=== PATIENT | female | born 1950 | race Caucasian/White ===

== ENCOUNTER 2024-07-04 14:25 | Emergency (ER) | payer OTHER, SELFPAY ==
--- NOTE | ~2024-07-04 | XR_ITS ---
XR chest 2V DATE: 07/04/2024 15:56 INDICATION: Cough TECHNIQUE: 2 views COMPARISON: None FINDINGS: Cardiomegaly. There is prominent consolidating infiltrate of the middle lobe and multiple bilateral lower lobe infi ltrates. No pleural effusion or pulmonary vascular congestion or pneumothorax is detected. No hilar or mediastinal enlargement is noted. Status post posterior surgical fusion of the cervical-thoracic spine IMPRESSION: Middle lobe consolidating infiltrate, probable bilateral lower lobe infiltrates Cardiomegaly Reviewed, dictated and finalized at location A. OL LIBRARIAN
[2024-07-04 14:45] VITALS: BP 143/53; PULSE 93; RESP 20; TEMP 37.6; O2SAT 100
--- NOTE | 2024-07-04 15:03 | ED.URI ---
HPI - URI/Sore Throat General Chief Complaint: Upper Respiratory Infection Stated Complaint: Cough/Shortness of Breath History of Present Illness HPI Narrative: Patient presents with a cough. No shortness of breath no chest pain productive at times. Patient states she had a fever to a eats ago with body aches but declines any testing for COVID or influenza at today's visit. Related Data Home Medications ?Medication ?Instructions ?Recorded ?Confirmed ?Last Taken ?Type alendronate 70 mg tablet mg PO 07/04/24 Unknown History apixaban 5 mg tablet (Eliquis) mg 07/04/24 Unknown History blood sugar diagnostic (Contour 07/04/24 07/04/24 Unknown History Next Test Strips) blood-glucose meter,continuous 07/04/24 07/04/24 Unknown History (DexSimpleview G7 [employer] Specialist) blood-glucose sensor (Dexcom G7 07/04/24 07/04/24 Unknown History Sensor device) clobetasol 0.05 % topical cream topical 07/04/24 Unknown History clonidine HCl 0.1 mg tablet mg 07/04/24 Unknown History finasteride 5 mg tablet mg 07/04/24 Unknown History fluticasone propionate 110 inhalation 07/04/24 Unknown History mcg/actuation HFA aerosol inhaler fluticasone propionate 50 intranasal 07/04/24 Unknown History mcg/actuation nasal spray,suspension furosemide 20 mg tablet mg 07/04/24 Unknown History gabapentin 100 mg capsule mg 07/04/24 Unknown History insulin aspart U-100 100 unit/mL subcut 07/04/24 Unknown History (3 mL) subcutaneous pen insulin glargine-yfgn 100 unit/mL unit subcut 07/04/24 Unknown History (3 mL) subcutaneous pen (Semglee (insulin glargine-yfgn) Pen) losartan 25 mg tablet mg 07/04/24 Unknown History methocarbamol 500 mg tablet mg 07/04/24 Unknown History montelukast 10 mg tablet mg 07/04/24 Unknown History mupirocin 2 % topical ointment topical 07/04/24 Unknown History omeprazole 20 mg capsule,delayed mg 07/04/24 Unknown History release ondansetron 8 mg disintegrating mg 07/04/24 Unknown History tablet pen needle, diabetic 31 gauge x 07/04/24 07/04/24 Unknown History 3/16 (BD Ultra-Fine Mini Pen Needle) simvastatin 40 mg tablet mg 07/04/24 Unknown History triamcinolone acetonide 0.1 % applic topical 07/04/24 Unknown History topical cream Allergies Allergy/AdvReac Type Severity Reaction Status Date / Time No Known Drug Allergies AdvReac Agitated Verified 07/04/24 15:09 Review of Systems Review of Systems: CONSTITUTIONAL: Denies chills, or sweats. Reports fever and generalized body aches EYES: Denies visual changes, redness, or discharge. ENT: Denies otalgia. Reports nasal congestion runny nose and sore throat CARDIOVASCULAR: Denies chest pain, palpitations, or edema. RESPIRATORY: Denies dyspnea. Reports occasional cough GASTROINTESTINAL: Denies abdominal pain, nausea, vomiting, or diarrhea. GENITOURINARY: Denies dysuria or hematuria. SKIN: Denies rash or itching. MUSCULOSKELETAL: Denies back pain, joint pain, or myalgia. Reports generalized body aches NEUROLOGIC: Denies headache, numbness, or weakness. PSYCHIATRIC: Denies anxiety or depression. PMFSH Comments At time of signature, agree with nursing past medical, surgical, social and family history. There is no relevant family history pertinent to the presenting complaint Exam Narrative: The patient is a well-developed, well-nourished in no acute distress. SKIN: Skin is warm and dry without erythema, swelling or exudate. There is good turgor. No tenting. HEAD: Atraumatic. Normocephalic. No temporal or scalp tenderness. EYES: Moist and bright. Sclera and conjunctivae normal. No discharge. PERRLA. Extraocular motions intact. Gross visual acuity intact. EARS: Pinna is normal shape and contour. Clear external auditory canals. TM pearly flores with good cone of light, no erythema or suppuration. Bilateral cerumen noted no gross hearing deficit. NOSE: pink, moist mucosa with good air movement. Clear rhinorrhea without nasal flaring. Septum midline. Mouth: moist mucous membranes. THROAT; mild erythema noted to posterior oropharynx with moderate postnasal drainage. Without exudate or ulceration.. Uvula midline. Normal movement of soft palate. NECK: Supple and nontender with full range of motion without discomfort. No meningeal signs. LUNGS: Equal and bilateral breath sounds without wheezes, rales or rhonchi. CHEST: The chest wall is without retractions or use of accessory muscles. HEART: Has a regular rate and rhythm without murmur, gallops, click or rub. ABDOMEN: Soft, nontender with positive active bowel sounds. No rebound tenderness. EXTREMITIES: Without cyanosis, clubbing or edema. Equal 2+ distal pulses and 2 second capillary refill noted. NEUROLOGIC: alert, active, . The patient moves all extremities with normal muscle strength. Normal muscle tone is noted. Normal coordination is noted. NO focal neurological findings noted. Course Course Level of Care: Express Care Visit Vital Signs Vital signs: Vital Signs Temperature 37.6 C 07/04/24 14:45 Pulse Rate 93 07/04/24 14:45 Respiratory Rate 20 07/04/24 14:45 Blood Pressure 143/53 H 07/04/24 14:45 Pulse Oximetry 100 07/04/24 14:45 Oxygen Delivery Room Air 07/04/24 14:45 Temperature 37.6 C 07/04/24 14:45 Pulse Rate 93 07/04/24 14:45 Respiratory Rate 20 07/04/24 14:45 Blood Pressure 143/53 H 07/04/24 14:45 Pulse Oximetry 100 07/04/24 14:45 Oxygen Delivery Room Air 07/04/24 14:45 Please ADDY schedule a followup visit with your personal physician for further evaluation and treatment. Including recheck and discussion of your blood pressure. If your symptoms persist, change or worsen significantly before you can contact your personal physician then please, without delay, go to the emergency department for further evaluation MDM - URI/Sore Throat Imaging Data Radiologist's impression: middle lobe pneumonia Discharge Plan Discharge Clinical Impression: Bronchitis Patient Disposition: Home, Self-Care Condition: Stable Instructions: Acute Bronchitis (ED), Pneumonia (ED) Additional Instructions: Take medication as prescribed Increase fluids monitor output Follow-up with primary care provider in 3-4 days for re-evaluation If any new or worsening symptoms please go to ER immediately further evaluation treatment Patient Language: Djiboutian Prescriptions: New amoxicillin 875 mg tablet 875 mg PO Q12H 5 Days Qty: 10 0RF benzonatate 100 mg capsule 100 mg PO TID PRN (Reason: cough) 5 Days Qty: 10 0RF albuterol sulfate 90 mcg/actuation HFA aerosol inhaler 2 puff inhalation QID PRN (Reason: shortness of breath or wheezing) Qty: 1 0RF fluticasone propionate 50 mcg/actuation spray,suspension 2 spray NASAL DAILY 14 Days Qty: 9.9 0RF Rx Instructions: administer into each nostril doxycycline monohydrate 100 mg capsule 100 mg PO BID 7 Days Qty: 14 0RF No Action methocarbamol 500 mg tablet clonidine HCl 0.1 mg tablet alendronate 70 mg tablet PO clobetasol 0.05 % cream TOPICAL (DME) Contour Next Test Strips Strip MISCELLANEOUS triamcinolone acetonide 0.1 % cream TOPICAL simvastatin 40 mg tablet ondansetron 8 mg tablet,disintegrating losartan 25 mg tablet omeprazole 20 mg capsule,delayed release(DR/EC) montelukast 10 mg tablet mupirocin 2 % ointment TOPICAL furosemide 20 mg tablet gabapentin 100 mg capsule fluticasone propionate 50 mcg/actuation spray,suspension INTRANASAL finasteride 5 mg tablet fluticasone propionate 110 mcg/actuation HFA aerosol inhaler INHALATION insulin aspart U-100 100 unit/mL (3 mL) insulin pen SUBCUT (DME) pen needle, diabetic [BD Ultra-Fine Mini Pen Needle] 31 gauge x 3/16 needle MISCELLANEOUS (DME) Dexcom G7 Sensor Device MISCELLANEOUS (DME) Dexcom G7 Learning [employer] Specialist Misc MISCELLANEOUS Eliquis 5 mg tablet insulin glargine-yfgn [Semglee(insulin glarg-yfgn)Pen] 100 unit/mL (3 mL) insulin pen SUBCUT Follow-up/Referrals: Harms,Lalito Kay M.D. [Primary Care Provider] -
--- OUTSIDE RECORDS SUMMARY | 2024-07-11 22:30 | XMS_ITS | Patient Health Summary ---
Author Organization [facility] Address [address] [place] [address] Care Team Providers Care Intermediate School Teacher Name Role Phone Unavailable Primary Care Provider Unavailabl e Note from [facility],non-owned Affiliates and Associated Physician Practices is amultiple site organization consisting of ambulatory clinics and hospital sitesin [place], [place], [place] and [place]. This disclosure is being madepursuant to the Care Everywhere program and may not contain all information available regarding this patient. Last updated 18.[facility] Social History Tobacco Use Types Packs/Day Years Used Date Smoking Tobacco: Never Assessed Sex and Gender Information Value Date Recorded Sex Assigned at Not on file Gender Identity Not on file Sexual Orientation Not on file Procedures * GROSS EXAM PATHOLOGY(Performed 09/27/2005) Results * GROSS EXAM PATHOLOGY (09/27/2005 4:20 PM PORT CAPTAIN) Result CASE NUMBER [id number] Comment: ORDERING PHYSICIAN ??LICHA GUZMAN SPECIMEN TYPE ?Knee bone and tissu DATE OF PROCEDURE ?09/27/2005 SPECIMEN LABELED ? Bone and tissue left knee PRE-OP DIAGNOSIS ? Left knee osteoarthritis GROSS DESCRIPTION ? GROSS DESCRIPTION The specimen is received in formalin labeled bone and tissue left knee patient Criss Ly, and consists of approximately 90 grams of yellow- white bone and soft tissue that includes fragments of tibial plateau, femoral condyles and patella. The largest tibial fragment is 3 x 3 x 1 cm. The condyles 5 x 2.5 x 0.8 cm and the patella 3 x 2.5 x 0.8 cm. All of the articular surfaces are yellow-white, nodular and focally eroded. The menisci are 3 x 1 x 0.9 cm. A portion submitted in two cassettes, one decal. Dictated by ? Tito oHoker M.D. MICROSCOPIC DESCRIPTION The sections from the bone show degenerative changes in the articular cartilage and adjacent cortical bone. The trabecular bone is normal. The bone marrow contains adipose tissue. ??Sections from the soft tissue show synovial hyperplasia. Dictated by ?? Tito Hooker M.D. DIAGNOSIS Bone, left knee, total knee replacement ? Degenerative joint disease ? Synovial hyperplasia Dictated by ??Tiot Hooker M.D. Abstract Manager ? LESLEE MCNEILL Released By ?TITO HOOKER MISCELLANEOUS SAMPLES / Unknown 09/27/2005 4:20 PM PORT CAPTAIN 09/27/2005 4:21 PM PORT CAPTAIN Historical Provider LAB - PATHOLOGY/C YTOLOGY ORDERABLES
--- OUTSIDE RECORDS SUMMARY | 2024-07-11 22:30 | XMS_ITS | Encounter Summary ---
Author Organization [facility] Address [address] [place] [address]. [place], [place] [id number] [place] [id number] Care Team Providers Care Licensing Engineer Name Role Phone Lalito England MD Primary Care Provider [phone] Encounter Details Date Type Department Care Team (Latest Contact Info) Description 03/25/2022 Travel Social History Tobacco Use Types Packs/Day Years Used Date Smoking Tobacco: Never Smokeless Tobacco: Never Alcohol Use Standard Drinks/Week Comments Never 0 (1 standard drink = 0.6 oz pur e alcohol) Comments No Sex and Gender Information Value Date Recorded Sex Assigned at Not on file Legal Sex Female 4:23 PM CDT Gender Identity Not on file Sexual Orientation Not on file COVID-19 Exposure Response Date Recorded In the last 10 days, have yo u been in contact with someone who was confirmed or suspected to have Coronavirus/COVID-19? No / Unsure 03/25/2022 10:30 AM CDT documented as of this encounter Functional Status documented as of this encounter Mental Status * Question Answer Entry Date Author Status Because of a physical, mental, or emotional condition, do you have serious difficulty concentrating, remembering, or making decisions? No 03/25/2022 7:00 PM CDT Radha Barajas R N Active documented in this encounter Plan of Treatment Not on file documented as of this encounter Visit Diagnoses Not on filedocumented in this encounter Care Teams Licensing Engineer Relationship Specialty Start Date End Date [place] [id number] PCP - General INTERNAL MEDICINE 02/05/22 documented as of this encounter
--- OUTSIDE RECORDS SUMMARY | 2024-07-11 22:30 | XMS_ITS | Encounter Summary ---
Author Organization [facility] Address [address] [place] [address] Care Team Providers Care Naphthalene Still Operator Name Role Phone Unavailable Primary Care Provider Unavailabl e Encounter Details Date Type Department Care Team (Late st Contact Info) Description 09/27/2005 Orders Only [facility] [address] [place] [address] Provider, MD Sofiya Social History Tobacco Use Types Packs/Day Years Used Date Smoking Tobacco: Never Assessed Sex and Gender Information Value Date Recorded Sex Assigned at Not on file Gender Identity Not on file Sexual Orientation Not on file documented as of this encounter Plan of Treatment Not on file documented as of this encounter Procedures Procedure Name Priority Date/Time Associated Diagnosis Comments GROSS EXAM PATHOLOGY ADDY 09/27/2005 4:20 PM VOLLEYBALL REFEREE documented in this encounter Results * GROSS EXAM PATHOLOGY (09/27/2005 4:20 PM VOLLEYBALL REFEREE) Result CASE NUMBER [id number] Comment: ORDERING [...] cassettes, one decal. Dictated by ? Tito Hooker M.D. MICROSCOPIC DESCRIPTION The sections from the bone show degenerative changes in the articular cartilage and adjacent cortical bone. The trabecular bone is normal. The bone marrow contains adipose tissue. ??Sections from the soft tissue show synovial hyperplasia. Dictated by ?? Tito Hooker M.D. DIAGNOSIS Bone, left knee, total knee replacement ? Degenerative joint disease ? Synovial hyperplasia Dictated by ??Tito Hooker M.D. Petrologist ? LESLEE MCNEILL Released By ?TITO HOOKER MISCELLANEOUS SAMPLES / Unknown 09/27/2005 4:20 PM VOLLEYBALL REFEREE 09/27/2005 4:21 PM VOLLEYBALL REFEREE Historical Provider LAB - PATHOLOGY/C YTOLOGY ORDERABLES documented in this encounter Visit Diagnoses Not on filedocumented in this encounter
--- OUTSIDE RECORDS SUMMARY | 2024-07-11 22:30 | XMS_ITS | Clinical Summary ---
Author Organization [facility] Address [address] [place] [address] Care Team Providers Care Metal Riveting Machine Operator Name Role Phone Unavailable Primary Care Provider Unavailabl e Source Comments [facility],non-owned Affiliates and Associated Physician Practices is amultiple site organization consisting of ambulatory clinics and hospital sitesin [place], [place], [place] and [place]. This disclosure is being madepursuant to the Care Everywhere program and may not contain all information available regarding this patient. Last updated 18.[facility] Social History Tobacco Use Types Packs/Day Years Used Date Smoking Tobacco: Never Assessed Sex and Gender Information Value Date Recorded Sex Assigned at Not on file Gender Identity Not on file Sexual Orientation Not on file Plan of Treatment Health Maintenance Due Date Last Done Comments BONE DENSITY TESTING 1950 COLOGUARD (AGES 45-75) - COL ON CA SCREENING 1949 COLON MONITORING 1949 COLONOSCOPY - COLON CA SCREENING 1949 CT COLONOGRAPHY - COLON CA SCREENING 1950 Colorectal Cancer Screening 1949 FIT - COLON CA SCREENING 1949 FLEX SIG - COLON CA SCREENING 1949 LIPID TESTING 1950 MAMMOGRAM 1949 HEPATITIS C SCREENING 04/19/1967 DTAP/TDAP/TD VACCINES (1 - Tdap) 1968 ZOSTER VACCINE (1 of 2) 1999 PNEUMOCOCCAL VACCINE 65+ (1 of 1 - PCV) 2014 DEPRESSION SCREENING 07/14/2023 COVID-19 VACCINE ( - 2023-2 5 season) 2024 INFLUENZA VACCINE (#1) 2024 Respiratory Syncytial Virus (RSV) Vaccine Pt: or over 60 yrs (1 - 1-dose 75+ series) 2024 HEPATITIS B VACCINE Aged Out No longe r eligible based on patient's age to complete this topic HIB VACCINE Aged Out No longer eligi ble based on patient's age to complete this topic HPV VACCINE Aged Out No longer eligi ble based on patient's age to complete this topic MENINGOCOCCAL VACCINE Aged Out No alissa david eligible based on patient's age to complete this topic
--- OUTSIDE RECORDS SUMMARY | 2024-07-11 22:30 | XMS_ITS | Referral Summary ---
Author Organization [facility] Address [address] [place] [address] Care Team Providers Care President & Ceo [employer] Name Role Phone Unavailable Primary Care Provider Unavailabl e Source Comments [facility],non-owned Affiliates and Associated Physician Practices is amultiple site organization consisting of ambulatory clinics and hospital sitesin [place], [place], [place] and [place]. This disclosure is being madepursuant to the Care Everywhere program and may not contain all information available regarding this patient. Last updated 18.[facility] Social History Tobacco Use Types Packs/Day Years Used Date Smoking Tobacco: Never Assessed Sex and Gender Information Value Date Recorded Sex Assigned at Not on file Gender Identity Not on file Sexual Orientation Not on file Plan of Treatment Not on file
--- OUTSIDE RECORDS SUMMARY | 2024-07-11 22:30 | XMS_ITS | Encounter Summary ---
Author Organization [facility] Address [address] [place] [address]. [place], [place] [id number] [place] [id number] Care Team Providers Care Cable Strander Name Role Phone Lalito England MD Primary Care Provider [phone] Reason for Referral * (Routine) - Canceled Specialty Diagnoses / Procedures Referred By Contac t Referred To Contact Procedures OT eval and treat Robinson Block MD [address] [place] [address] Phone: tel: fax: Referral ID Status Reason Start Date Expiration Date V isits Requested Visits Authorized [id number] Canceled 03/25/2022 03/25/2023 1 1 * (Routine) - Canceled Specialty Diagnoses / Procedures Referred By Contac t Referred To Contact Procedures PT eval and Robinson Garvey MD [address] [address] Phone: tel: fax: Referral ID Status Reason Start Date Expiration Date V isits Requested Visits Authorized [id number] Canceled 03/25/2022 03/25/2023 1 1 Reason for Visit * Auth/Cert Specialty Diagnoses / Procedures Referred By Contac t Referred To Contact Diagnoses LUMBAR STENOSIS WITH CLAUDICATION, BILATERAL FOOT DROP M48.062, M21.371, M43.10 Procedures LUMBAR 4-5 LAMINECTOMY Robinson Block MD [address] [address] Phone: tel: fax: Referral ID Status Reason Start Date Expiration Date Visits Re quested Visits Authorized [id number] 1 1 Encounter Details Date Type Department Care Team (Late st Contact Info) Description 03/25/2022 10:30 AM CDT - 03/26/2022 8:45 PM CDT Hospital Encounter [facility] Med/Surg 5th [address] [place], [place] [id number] Robinson Block MD [address] [address] Discharge Disposition: [facility] Facility Social History Tobacco Use Types Packs/Day Years [...] AM CDT documented as of this encounter Last Filed Vital Signs Vital Sign Reading Time Taken Comments Blood Pressure 137/60 03/26/2022 8:00 PM CDT Pulse 86 03/26/2022 8:00 PM CDT Temperature 37.7 ??C (99.9 ??F) 03/26/2022 8:00 PM CD T Respiratory Rate 19 03/26/2022 8:00 PM CDT Oxygen Saturation 99% 03/26/2022 8:00 PM CDT Inhaled Oxygen Concentration - - Weight 104.3 kg (230 lb) 03/25/2022 7:30 PM CDT Height 167.6 cm (5' 6 ) 03/25/2022 7:30 PM CDT p er patient Body Mass Index 37.12 03/25/2022 7:30 PM CDT documented in this encounter Functional Status * Question Answer Date of Assessment Author Status Do you have serious difficulty walking or climbing stairs? Yes 03/25/2022 7:00 PM CDT Radha Barajas RN Ac tive * Question Answer Date of Assessment Author Status Do you have difficulty dressing or bathing? No 03/25/2022 7:00 PM CDT Radha Barajas R N Active Because of a physical, mental, or emotional condition, do you have difficulty doing errands alone such as visiting a doctor's office or shopping? No 03/25/2022 7:00 PM CDT Radha Barajas RN Act ziyad * RETIRED Are you deaf or do you have serious difficulty hearing Answer Date of Assessment Author Status No 03/25/2022 7:00 PM CDT Activ e * RETIRED Are you blind or do you have serious difficulty seeing, even when wearing glasses? Answer Date of Assessment Author Status No 03/25/2022 7:00 PM CDT Activ e * Do you have serious difficulty walking or climbing stairs? Answer Date of Assessment Author Status Yes 03/25/2022 7:00 PM CDT Radha Barajas RN Active * Do you have difficulty dressing or bathing? Answer Date of Assessment Author Status No 03/25/2022 7:00 PM CDT Radha Barajas RN Active * Because of a physical, mental, or emotional condition, do you have difficulty doing errands alone such as visiting a doctor's office or shopping? Answer Date of Assessment Author Status No 03/25/2022 7:00 PM CDT Radha Barajas RN Active documented as of this encounter Mental Status * Question Answer Entry Date Author Status Because of a physical, mental, or emotional condition, do you have serious difficulty concentrating, remembering, or making decisions? No 03/25/2022 7:00 PM CDT Radha Barajas R N Active * Because of a physical, mental, or emotional condition, do you have serious difficulty concentrating, remembering, or making decisions? Answer Entry Date Author Status No 03/25/2022 7:00 PM CDT Radha Barajas RN Active documented in this encounter Discharge Instructions * Discharge Instructions* Francoise Pak RN - 03/26/2022 2:47 PM CDT Remove dressing tomorrow. Leave on seri strips. Can take shower on . Follow up with Umair weber in two weeks and in person 6 weeks out documented in this encounter Medications at Time of Discharge acetaminophen (TYLENOL) 325 MG tablet Take 650 mg by mouth every 4 (four) hours as needed for Pain. albuterol sulfate HFA 108 (90 Base) MCG/ACT inhaler Inhale 2 puffs into the lungs as needed. alendronate (FOSAMAX) 70 MG tablet Take 1 tablet by mouth once a week. Takes on Friday01/18/2022 bisacodyl (BISACODYL LAXATIVE) [address] 10 mg rectally daily as needed for Constipation. calcium carbonate-vitamin D 600-200 MG-UNIT Tab Take 1 tablet by mouth daily. cloNIDine (CATAPRES) 0.1 MG tablet Take 0.5 tablets by mouth 2 (two) times daily. 12/19/2021 docusate sodium (COLACE) 100 MG capsule Take 100 mg by mouth daily. Give one time a day every 2 days for constipation fluticasone propionate (FLONASE) 50 MCG/ACT nasal spray 2 sprays by Nasal route daily. 01/07/2022 furosemide (LASIX) 20 MG tablet Take 1 tablet by mouth daily. 02/05/2022 gabapentin (NEURONTIN) 100 MG capsule Take 1 capsule by mouth 3 (three) times a day. 02/14/2022 HYDROcodone-aceta minophen (NORCO) 5-325 MG tablet Take 1 tablet by mouth 3 (three) times daily as needed. 12/28/2021 insulin aspart (NOVOLOG FLEXPEN) 100 UNIT/ML injection (PEN) INJECT 32 UNITS UNDER THE SKIN 3 (THREE) TIMES A DAY BEFORE MEALS 09/11/2021 insulin glargine (LANTUS SOLOSTAR) 100 UNIT/ML injection (PEN) 48 Units nightly. 48 units at night 01/04/2022 loperamide (IMODIUM) 2 MG capsule Take 2 mg by mouth 4 (four) times daily as needed for Diarrhea. magnesium citrate 1.745 GM/30ML Solution Take 296 mLs by mouth once. montelukast (SINGULAIR) 10 MG tablet Take 1 tablet by mouth nightly at bedtime. 02/05/2022 naloxone (NARCAN) 4 MG/0.1ML nasal spray 1 spray by Nasal route. 12/28/2021 omeprazole (PRILOSEC) 20 MG capsule Take 20 mg by mouth 2 (two) times a day. ondansetron (ZOFRAN) 4 MG tablet 4 mg every 6 (six) hours as needed for Nausea. 03/24/2022 simvastatin (ZOCOR) 40 MG tablet Take 1 tablet by mouth nightly. 08/23/2021 methocarbamol (ROBAXIN) 750 MG Tab Take 1 tablet (750 mg total) by mouth 3 (three) times daily for 30 days. 90 tablet 03/26/2022 2 documented as of this encounter Progress Notes * Svitlana Laird, OT - 03/26/2022 2:47 PM CDT 03/26/22 1400 Therapy Visit OT Evaluation Completed on 03/26/22 Reason for admission Lumbar stenosis with claudication and b/foot drop. Underwent L4-5 LAMINECTOMY on 03/25/22. Comorbidities Relevant to OT Left LILLY, B/TKA's, previous left L4-5 laminectomy, asthma, HTN, PVD, DVT, HLD, DM, OBESITY, OA, CKD. Ordering Provider Umair Verified Two Patient Identifiers Yes Patient consents to therapy Yes Acute Inpatient OT Time Calculation OT Start Time 1305 OT Stop Time 1334 OT Time Calculation (min) 29 min Precautions Spine Precautions Bending;Leaning;Lifting;Twisting Lifting Precautions Yes Weight Bearing Status As tolerated General Precautions Bed Alarm;Chair Alarm;Fall Risk PPE Used Face mask;Gloves Instructed on Precautions Yes;Verbalizes understanding Skin Integrity Back incision/dressing Other IV Subjective Subjective RM 518: OT orders rec'd EMR reviewed. Pt sitting EOB with PT at arrival and agreeable toOT evaluation. Home Living Type of Home long term facility (Receiving rehab since 01/18/22) Home Layout One level Home Accessibility 0 Steps to enter Bathroom Shower/Tub Walk-in shower Bathroom Toilet Elevated height toilet (ADA height);Grab bars around toilet Bathroom Equipment Grab bars in shower;Tub/shower chair with back Bathroom Accessibility Accessible Home Equipment 4 Wheeled walker;2 Wheeled walker;Straight cane (using WC at [place]) Prior Function Level of [place] Needs assistance with ADLs;Needs assistance with homemaking;Needs assistance with functional transfers;Needs assistance with ambulation Device used at baseline Wheelchair-manual (sit to stand lift at [facility]) Baseline Ambulation Distance/Assistance Non-ambulatory 3 months Fall History Yes Reason for fall leg gave out Most recent fall 01/16/22 How many falls in the past year? 3 Lives With Alone Receives Help From Facility staff (PT at facility for sit>stand with walker) ADL Assistance Needs assistance Homemaking Assistance Needs assistance Pain Pain Yes Pain Score 8 Location back Interventions Re-direction;Re-positioning Activity Tolerance Endurance Tolerates 10 - 20 min activity with rests Endurance Quality Poor Limiting Factors to Endurance Acute deconditioning;Fatigue;Pain;Weakness Vision - Basic Assessment Current Vision No visual deficits Vision - Complex Assessment Additional Comments no issues Cognition Overall Cognitive Status WFL Arousal/Alertness Appropriate responses to stimuli Attention Span Appears intact Memory Appears intact Orientation Level Oriented X4 Following Commands Follows all commands and directions without difficulty Safety Judgment Decreased awareness of need for safety Awareness of Errors Assistance required to identify errors made Deficits Decreased awareness of deficits Problem Solving Assistance required to identify errors made Overall Extremity Assessment Upper Extremity BUE AROM WFL; BUE MMT grossly 4-/5 Hand Function Hand Dominance Right Gross Grasp Functional Sensation Light Touch No apparent deficits ADL Eating/Feeding Assistance Independent Eating/Feeding Deficit Setup Grooming Assistance Stand by;Sitting at EOB Grooming Deficit Setup;Steadying;Supervision/safety;Increased time to complete Bathing Assistance Maximal;Sitting in chair Bathing Deficit Setup;Steadying;Supervision/safety;Increased time to complete;Left lower leg including foot;Left upper leg;Right lower leg including foot;Right upper leg;Buttocks;Perineal area UE Dressing Assistance Minimal;Sitting at EOB UE Dressing Deficit Setup;Steadying;Supervision/safety;Increased time to complete;Pull down in back;Pull around back LE Dressing Assistance Maximal;Sitting at EOB LE Dressing Deficit Setup;Steadying;Verbal cueing;Supervision/safety;Don/doff R shoe;Thread LLE into underwear;Thread RLE into underwear;Thread LLE into pants;Thread RLE into pants;Don/doff L sock;Don/doff R sock Toileting Assistance Maximal Toileting Deficit Setup;Steadying;Increased time to complete;Use of bedpan/urinal setup;Supervision/safety;Clothing management down;Clothing management up;Perineal hygiene Bed Mobility Rolling Max assist to right;Assist of 2 Supine to Sit Max assist to left;Assist of 2 Functional Transfers Sit to Stand Other (bed elevated - 2 max/total assists to w/w. Only stood for less than 1 minute.) Toilet Transfers Total assist;Assist x 2 (simulated with bed>chair squat pivot could not come to full stand or take steps) Balance Sitting - Static Modified independence Sitting - Dynamic Modified independence Standing - Static Assist of 2 Persons;Max Assist Standing - Dynamic Other(Comment) (total A x2) Assessment Occupational Profile and History Complexity High (Extensive) Performance Skills Deficits Bathing/showering;Dressing;Functional mobility;Health management and maintenance;Personal hygiene and grooming;Safety and emergency maintenance;Toileting Performance Deficit Level High (5 or more deficits) Clinical Decision Making High (max modifications) Complexity Level of Evaluation High Prognosis Guarded OT Assess/Eval Other (Comment) Pt is a 71 y/o F experiencing decreased activity tolerance and grossstrength s/p L4-L5 laminectomy. Pt requires increased assistance with ADLs and is Max/Total A x2 for all functional mobility. Pt would benefit from continued skilled OT while hospitalized and at d/c to improve safety with functional mobility and decrease assistance needed for ADLs. Recommendation OT Recommendation OT at half-way facility OT Equipment Recommended To Be Determined Plan OT Treatment/Intervention Self-care training;Therapeutic exercises;Therapeutic activities;Safety;Functional activity;Continued evaluation;Patient/family training OT Frequency 3 times/week OT plan for next session ADLs If this is the last treatment note, it will serve as the discharge summary Yes End of Session End of Session Safety Chair alarm set/activated;Call light within reach;Nursing aware of session Interdisciplinary Collaboration RN OT * Fatmata Diego, PT - 03/26/2022 1:55 PM CDT 03/26/22 1335 Therapy Visit Ordering Provider Umair PT Received On 03/25/22 PT Evaluation Completed on 03/26/22 Treatment Day 1 Subjective room 518: PT order rec'd, EMR reviewed. Pt agreeable to therapy. Reason for admission Lumbar stenosis with claudication and b/foot drop. Underwent L4-5 LAMINECTOMY on 03/25/22. Relevant Comorbidities/ Personal Factors to PT Left LILLY, B/TKA's, previous left L4-5 laminectomy, asthma, HTN, PVD, DVT, HLD, DM, OBESITY, OA, CKD. Verified Two Patient Identifiers Yes Patient consents to therapy Yes Acute Inpatient PT Time Calculation PT Start Time 1255 PT Stop Time 1325 PT Time Calculation (min) 30 min Precautions Spine Precautions Bending;Leaning;Lifting;Twisting Lifting Precautions Yes Weight Bearing Status As tolerated General Precautions Bed Alarm;Chair Alarm;Fall Risk PPE Used Face mask;Gloves Instructed on Precautions Yes;Verbalizes understanding Skin Integrity Back incision/dressing Other IV Home Living Type of Home long term facility (Receiving rehab since 01/18/22) Home Equipment 4 Wheeled walker;2 Wheeled walker;Straight cane (using WC at [place]) Prior Function Level of [place] Needs assistance with functional transfers;Needs assistance with ADLs Device used at baseline Wheelchair-manual (SIT TO STAND LIFT TRANSFERS AT [facility]) Baseline Ambulation Distance/Assistance Non-ambulatory 3 months Fall History Yes Reason for fall leg gave out Most recent fall 01/16/22 How many falls in the past year? 1 Receives Help From Facility staff PLOF Comments At SNF - getting therapy to strengthen le's and to perform sit to stand with walker and increase time standing with therapy assist. Pain Pain Yes Pain Score 8 Location back Interventions Re-positioning;Informed RN Activity Tolerance Endurance Tolerates 10 - 20 min activity with rests Endurance Quality Poor Limiting Factors to Endurance Acute deconditioning;Fatigue;Pain;Weakness Cognition Overall Cognitive Status WFL Orientation Level Oriented X4 Following Commands Follows all commands and directions without difficulty Other (Comment) poor insight into condition/safety - wants to go back to SNF in sister's car - pt requires 2 total assist for pivot transfer. Sensation Additional Comments no N/T Overall Extremity Assessment Lower Extremity R/LE STRENGTH HIP FLEXORS 2+/5, KNEE EXT 4-/5, ANKLE DF 2/5. LEFT LE HIP FLEXORS 2+/5, KNEE EXT 4/5, ANKLE DF 2/5. Lacks full active rom < 50% actively on b/ankle df's.Tested in supine and sitting. Bed Mobility Rolling Max assist to right;Assist of 2 Supine to Sit Max assist to left;Assist of 2 TRANSFERS Sit to Stand (bed elevated - 2 max/total assists to w/w. Only stood for less than 1 minute.) Bed to Chair Total assist;Assist of 2 (could not stand erect, could not move feet.) Other (Comment) sat in chair with chandrika pad under patient for return to bed by nursing. Nursing aware. Gait Other (Comment) non-ambulatory Balance Sitting - Static Modified independence Sitting - Dynamic Modified independence Standing - Static Assist of 2 Persons;Max Assist Standing - Dynamic (2 total assist) Exercises Supine LE Exercise x Sitting LE Exercise x Patient/Family Training Bed Mobility x Transfer Training x Precautions x Exercise Program x Assessment Personal Factors/Comorbidities Impacting Care 3-4 personal factors/comorbidities Examination of Body Systems High (at least 4 Elements) Objectives of Body Systems Impaired bed mobility;Impaired transfers;Impaired balance;Impaired ambulation;Decreased ADL status;Decreased LE ROM;Decreased LE strength;Decreased endurance;Decreased safejudgement Clinical Presentation of Patient Unpredictable and unstable characteristics Complexity Level of Evaluation High Prognosis Guarded PT Assess/Eval Other (Comment) Pt is requiring 2 total assists for stand pivot transfer bed -- chair. Pt is not safe to perform car transfer with sister back to SNF. Recommend ambulance. Nursing aware. Recommendation PT Recommendation PT at half-way Facility PT Equipment Recommended To Be Determined Plan PT Treatments/Interventions Therapeutic Activities;Therapeutic Exercises Progress Slow progress, medical status limitations PT Frequency BID (daily Sat/Sun) PT plan for next session b/le ex, bed mob, progress with transfer trg - may use slide board if sit to stand does not improve. If this is the last treatment note,it will serve as the discharge summary Yes End of Session End of Session Safety Chair alarm set/activated;Call light within reach;Nursing aware of session Interdisciplinary Collaboration PT, OT, RN * MARLINE Wise - 03/26/2022 11:04 AM CDT SW met with pt to discuss potential need at discharge. Pt plans to return to her rehab facility, [facility] [phone]. Pt states that her sister will transport her. SW confirmed with rehab facility that pt is able to return. Nurse was instructed to call report to [phone] and use prompts to nurses station 2. They do not require for pt to have a covid swab. SW will fax discharge summary to [phone] when available. 13:55 Therapy worked with pt and does not believe that she can go by car. Pt was max assist to get up. She will be too weak to sit for the transport for that amount of time. EMS arranged for 4:30 PM (soonest available) through [facility]. PCS on chart. 03/26/22 1100 Referral Data Referral Reason Discharge Planning Source of Information Patient;Other (Comment) Patient Information OB Patient < 19 yrs old No Primary Caregiver Other (Comment) Support System Immediate family;Other (Comment) Baseline ADL's Living Arrangements Other (Comment) Type of Residence Rehab facility Behavior Oriented Communication Talks Socioeconomic Needs Caregiver Needed No At Risk of Abuse or Neglect No Adequate Resources Yes Psychological Needs: Mental health concerns No Suspected Drug or Alcohol Abuse No Inappropriate Patient/Family Behaviors No Difficult Adjustment to Diagnosis No Recent Hospitalization Recent Hospitalization within 30 days No Anticipated Discharge Needs Change in Living Arrangements No In-Home Care or Equipment No Vocational and/or Role Loss No Inability to Complete ADL's No Legal Information Guardianship Documentation Not applicable Anticipated DC Plan Living Arrangements Other (Comment) Support Systems Family members;Caregiver staff Type of Residence Rehab facility Assistance Needed No Patient expects to be discharged to: Rehab facility Psychosocial Needs With Indication for Social Work Consult Diagnosis/prognosis resulting in poor adjustment or coping with illness No Diagnosis/prognosis with anticipated outcome of major lifestyle changes, including change in long term care phlebotomist living environment No Family concerns/conflicts No Inadequate social and/or financial supports No Abuse and/or neglect of elder, adult or child No Psychiatric and/or substance abuse issues affecting current hospitalization No Homelessness with lack of safe discharge environment No Need for guardianship petition No Chaptered patient No * Robinson Block MD - 03/26/2022 9:20 AM CDT Neurosurgery Progress Note S: No acute events overnight. Patient in bed this AM. Pain controlled. + Void O: Constitutional: alert and oriented x 3 Motor: -RLE: IP 4/5 H 5/5 Q 5/5 DF 2/5 EHL 1/5 PF 4+/5 -LLE: IP 3/5 H 5/5 Q 5/5 DF 3/5 EHL 2/5 PF 5/5 B/l UE: 5/5 Sensory: intact to LT x 4 extremities A/P: Mrs. Criss Ly is a 71 y/o M POD # 1 s/p L4-5 lami - PT/OT - Up to chair - Oral pain control - Dispo: most likely d/c back to SNF today. Patient has been at SNF for 2 months due to inability to walk. If she qualifies for Inpatient rehab great - Ok to d/c today back to SNF or to rehab * Martha Ambrose RN - 03/26/2022 4:32 AM CDT Problem: Pain Goal: Patient's pain/discomfort is manageable Description: Assess and monitor patient's pain using appropriate pain scale. Collaborate with interdisciplinary team and initiate plan and interventions as ordered. Re-assess patient's pain level 30 - 60 minutes after pain management intervention. Outcome: Progressing Problem: Safety Goal: Patient will be injury free during hospitalization Description: Assess and monitor vitals signs, neurological status including level of consciousness and orientation. Assess patient's risk for falls and implement fall prevention plan of care and interventions per hospital policy. Ensure arm band on, uncluttered walking paths in room, adequate room lighting, call light and overbed table within reach, bed in low position, wheels locked, side rails up per policy, and non-skid footwear provided. Outcome: Progressing Problem: Daily Care Goal: Daily care needs are met Description: Assess and monitor ability to perform self care and identify potential discharge needs. Outcome: Progressing Problem: Psychosocial Needs Goal: Demonstrates ability to cope with hospitalization/illness Description: Assess and monitor patients ability to cope with his/her illness. Outcome: Progressing Goal: Collaborate with patient/family/caregiver to identify patient specific goals for this hospitalization Outcome: Progressing Problem: Discharge Barriers Goal: Patient's discharge needs are met Description: Collaborate with interdisciplinary team and initiate plans and interventions as needed. Outcome: Progressing documented in this encounter Nursing Notes * Francoise Pak RN - 03/26/2022 6:00 PM CDT Facility was called and report was given to nurse. Nurse had called back and had a couple of followup questions about the pt. Facility was updated that ambulances were running behind and pt might show up later than anticipated. * Candis Wilson RN - 03/25/2022 12:17 PM CDT Pt smiles symetrically, tongue is midline and can be moved side to side, hand aml analyst/push and pulls equal and strong. Pt is wheelchair bound and requires chandrika lift to be transferred into bed due to weakness in trevin legs. Pt co of pain in neck/lower back rated at an 8. Hibiclens showers at home x 2, nose to toes protocol completed. CHG wipes used on arrival to OPS, etyhl alcohol swabs x 2 placed in bilateral nares per RN. Pt tolerated well. Pt had personal wheelchair in pt's room and other belongings locked up in locker 37. SEBASTIÁN Castaneda documented in this encounter OR Notes * Op Note - Robinson Block MD - 03/25/2022 5:36 PM CDT LUMBAR 4-5 LAMINECTOMY Procedure Note MarshaGisselle Ly 03/25/2022 Surgeon(s): oRbinson Block MD Boot Maker: Private Industrial Automation Engineer: Serene Saenz NP Pre-Op Diagnosis: 1. L4-5 Central Canal stenosis 2. Right L4-5 Lateral recess stenosis Post-Op Diagnosis: Same Procedure(s): 1. L4 laminectomy 2. Right L4-5 Lateral recess decompression 3. Partial Right Superior L5 laminectomy Anesthesia: General Findings: 1. Severe Central Canal stenosis at L4-5 2. Severe Right L4-5 lateral recess stenosis from scar and ligamentum hypertrophy 3. Scar at previous left L4-5 laminotomy Complications: None Estimated Blood Loss: less than 50 mL Drains: none Specimens: None Implants: None Procedure Description: ?? The patient was taken to the Operating room and was intubated by anesthesia on the cart. The patient was then flipped prone onto a Steve Frame sitting on a open Milind bed. All pressure points??were padded. ?? The lumbar area was cleaned with rubbing alcohol.??The incision was marked??using xray. We marked incision from the L4 pedicle to the L5 pedicle.?We used some of the patient's previous incision from her left L4-5 discectomy. The patient's lumbar spine was prepped and draped in standard sterile fashion. Using a # 10 blade, an incision was made??over the midline. ??Bovie was used to dissect downto the fascia. Again using bovie, the fascia was opened and the muscle was dissected down to??expose the??Right L4 lamina and the Right L5??lamina. I then dissected out the left L5 lamina and tried to expose the left L4 lamina, but there was a tremendous amount of scar from her previous left L4 laminotomy. At that point, her main issue was central canal stenosis and right lateral recess stenosis.??An xray was then used to confirm the??level of the Right L4-5 disc space. ?? A self retaining retractor was placed.?Using a high speed drill and Kerrison punches??the right L4 lamina and the superior aspect of the right L5 lamina was removed. I removed ligamentum flavum??in piecemeal fashion both rostrally and caudally??with upgoing curettes and Kerrison punches.??I then was able to find the shoulder of the Right L5 nerve root and made sure it was well decompressed. I then removed the a small amount of the medial aspect of the facet joint to fully decompress the right L4-5 lateral recess. There was a large amount of scar tissue even on the patient's right side. The scar combined with severely hypertrophied ligamentum flavum was causing severe right L4-5 lateral recess stenosis and compression of the right L5 nerve root. I then slowly removed some of the central part of the L4 lamina. I was able to underbite the L4 lamina and ligamentum flavum to help decompress the central canal. I was able to get past midline on to the left side, but stopped my decompression when I reached scar tissue on the left from prior surgery. ?? I then removed more of the superior aspect of the right L5 lamina and decompressed the Right L4-5 lateral recess to make sure the traversing Right L5 nerve root was widely decompressed.?I was able to pass a Monie dental instrument along the entire course of the right L5 nerve root. The lateral recess was decompressed from just above the Right L4 pedicle to the Right L5 pedicle.? Epidural hemostasis was achieved with floseal and the bipolar. The wound was irrigated copiously with saline with ancef.??The fascia was closed with 0 vicryl sutures. 500 mg of vancomycin powder was placed in the suprafascial space.?The subdermal layers were closed with 2-0 vicryl sutures. The skin was closed with a 4-0 monocryl, followed by steristrips on the skin. The incision was dressed fadumo sterile manner. ?? The counts were correct at the end of the case. ?? The patient was extubated by anesthesia and brought to PACU in stable condition.? Serene Saenz NP, assisted with the entire case including opening and closing. ?? There were no immediate complications. ? Robinson Block MD Neurosurgery?? Robinson Block MD Date: 03/25/2022 Time: 5:36 PM * Brief Op Note - Robinson Block MD - 03/25/2022 5:31 PM CDT HS Brief Op HSHSLUMBAR 4-5 LAMINECTOMY Procedure Note Criss Ly 03/25/2022 1254 Procedure(s) (LRB): LUMBAR 4-5 LAMINECTOMY (N/A) Surgeon(s): Robinson Block MD Boot Maker: Private Industrial Automation Engineer: Serene Saenz NP Anesthesia: General Pre-Op Diagnosis: LUMBAR STENOSIS WITH CLAUDICATION, BILATERAL FOOT DROP M48.062, M21.371, M43.10 Post-Op Diagnosis: Same Findings: 1. Severe Central Canal stenosis at L4-5 2. Severe Right L4-5 lateral recess stenosis from scar and ligamentum hypertrophy 3. Scar at previous left L4-5 laminotomy Estimated Blood Loss: less than 50 mL Drains: None Specimens: None Robinson Block MD Date: 03/25/2022 Time: 5:31 PM * OR PreOp - Citlaly Wilson RN - 03/21/2022 10:45 AM CDT Incoming call from Nelly at [facility]. She would like more information about pt arrival time and discharge so that she can arrange transportation. Notified SEBASTIÁN Ramos at [facility] who instructs that pt should arrive at 1100. Discharge is difficult to predict, and there is sometimes a possibilty that patient may stay overnight. Gave Nelly Kelley's office number and point of contact to request more information. Nelly also indicates that The patient's sister will meet her here on day of procedure. She reports that she had printed CBC that was done but it was from January. [facility] Please call if not needed. She will also send ekg and any other testing. * OR PreOp - Brea Pinedo RN - 03/21/2022 10:27 AM CDT Called [facility] to ask for labs and EKG. Was sent to [facility]. Message left. * OR PreOp - Linn Acevedo CNP - 03/20/2022 11:18 AM CDT Chart reviewed. Per phone interview, patient uses wheelchair 2/2 weakness in legs. Denies CP or extreme SOB. Pt is weaker 2/2 back problems. Per phone interview, patient denies having a hand fur cleaner.Pt had EKG within last [address] [facility]. Please request EKG from facility. Hx PONV Addendum 03/21/22: EKG 03/05/22 Normal sinus rhythm, Normal ECG Renal clearance per Dr. Paige. Pt cannot take NSAIDs before, during, and after surgery due to renal failure (CKD stage 3b) Medical clearance per Robinson Villarreal PA-C -No need IVC filter -OK to hold Eliquis however long neurosurgery needs * OR PreOp - Brea Pinedo RN - 03/20/2022 9:57 AM CDT Can you climb 2 flights of stairs without CP or extreme SOB? Using wheelchair now because legs are weak. Denies cp or extreme sob. Are you physically able to do the same things today that you could 6 months ago? Weaker related to back problems. Is receiving PT What is your average blood pressure? Cannot remember numbers but states it is good Any recent heart testing? (EKG, stress test, Echo?) ekg in last 2 weeks at [facility] Do you see a hand fur cleaner? Who is it? No Pfizer vaccinated Had COVID feb 18 was last day of isolation (13 days) mild symptoms documented in this encounter Plan of Treatment Not on file documented as of this encounter Procedures Procedure Name Priority Date/Time Associated Diagnosis Comments POCT GLUCOSE - GIL DOCKED DEVICE Routine 03/26/2022 8:04 PM CDT POCT GLUCOSE - GIL DOCKED DEVICE Routine 03/26/2022 5:43 PM CDT POCT GLUCOSE - GIL DOCKED DEVICE Routine 03/26/2022 10:54 AM CDT POCT GLUCOSE - GIL DOCKED DEVICE Routine 03/26/2022 8:23 AM CDT POCT GLUCOSE - GIL DOCKED DEVICE Routine 03/25/2022 8:57 PM CDT SURG XR LUMB SPINE 1V Routine 03/25/2022 6:19 PM CDT POCT GLUCOSE - GIL DOCKED DEVICE Routine 03/25/2022 5:50 PM CDT LAMINECTOMY DECOMPRESSION 03/25/2022 2:34 PM CDT LUMBAR STENOSIS WITH CLAUDICATION, BILATERAL FOOT DROP M48.062, M21.371, M43.10 Case Notes SCHED BY FAX ON 03/15/2022 [facility]CS PHONE ASSESS Special Needs MICROSCOPE, FLUORO, STEVE FRAME, C-ARM, SERENE ASSISTING POCT GLUCOSE - GIL DOCKED DEVICE Routine 03/25/2022 11:30 AM CDT documented in this encounter Results * (ABNORMAL) POCT glucose (03/26/2022 8:04 PM CDT) GLUCOSE POC 306(H) 70 - 99 mg/dL 03/26/2022 8:24 PM CDT [facility] 03/26/2022 8:04 PM CDT us Robinson Block MD POCT ORDERABLES - DEVICE Fin al Result [facility] [address] [place] [address], [place] [phone] * (ABNORMAL) POCT glucose (03/26/2022 5:43 PM CDT) GLUCOSE POC 324(H) 70 - 99 mg/dL 03/26/2022 5:45 PM CDT [facility] 03/26/2022 5:43 PM CDT Robinson Block MD POCT ORDERABLES - DEVICE Fin al Result [facility] [address] [place] [id number], [place] [phone] * (ABNORMAL) POCT glucose (03/26/2022 10:54 AM CDT) GLUCOSE POC 178(H) 70 - 99 mg/dL 03/26/2022 10:56 AM CDT [facility] 03/26/2022 10:5 4 AM CDT Robinson Block MD POCT ORDERABLES - DEVICE Fin al Result Performing Organization Address City/[facility]/ZIP Co de Phone Number [facility] [address] [place] [address], [place] [phone] * (ABNORMAL) POCT glucose (03/26/2022 8:23 AM CDT) GLUCOSE POC 148(H) 70 - 99 mg/dL 03/26/2022 8:59 AM CDT [facility] 03/26/2022 8:23 AM CDT us Robinson Block MD POCT ORDERABLES - DEVICE Fin al Result [facility] [address] [place] [address] [place] [address], * (ABNORMAL) POCT glucose (03/25/2022 8:57 PM CDT) GLUCOSE POC 215(H) 70 - 99 mg/dL 03/25/2022 8:59 PM CDT [facility] 03/25/2022 8:57 PM CDT Robinson Block MD POCT ORDERABLES - DEVICE Fin al Result [facility] [address] [place] [address], * SURG XR LUMB SPINE 1V (03/25/2022 6:19 PM CDT) Anatomical Region Laterality Modality Spine Radiographic Pamela ging 03/26/2022 12:4 4 AM CDT Impressions 03/26/2022 12:45 AM CDT Impression: Fluoroscopic spot views of lumbar spine obtained for intraoperative control purposes and evaluated postoperatively. Referred By: ?? Interpreted By: Prashanth Rosales MD, 03/26/2022 12:44 AM Narrative 03/26/2022 12:45 AM CDT Intraoperative fluoroscopic views of the lumbar spine History: Spinal canal stenosis at L4-L5. ??Right L4-L5 lateral recess stenosis. Technique: A total of 10.8 seconds of fluoroscopic time was utilized for the study. 4 images are submitted for interpretation. Findings: Submitted images demonstrate surgical instrumentation posterior to the L4 and L5 vertebral bodies. Procedure Note Prashanth Rosales MD - 03/26/2022 Intraoperative fluoroscopic views of the lumbar spine History: Spinal canal stenosis at L4-L5. Right L4-L5 lateral recessstenosis. Technique: A total of 10.8 seconds of fluoroscopic time was utilized forthe study. 4 images are submitted for interpretation. Findings: Submitted images demonstrate surgical instrumentation posteriorto the L4 and L5 vertebral bodies. Impression: Fluoroscopic spot views of lumbar spine obtained forintraoperative control purposes and evaluated postoperatively. Referred By: Interpreted By: Prashanth Rosales MD, 03/26/2022 12:44 AM us Robinson Block MD IMAGES ONLY Final Result * (ABNORMAL) POCT glucose (03/25/2022 5:50 PM CDT) GLUCOSE POC 145(H) 70 - 99 mg/dL 03/25/2022 5:51 PM CDT [facility] 03/25/2022 5:50 PM CDT us Robinson Block MD POCT ORDERABLES - DEVICE Fin al Result Performing Organization Address City/[facility] Co de Phone Number [facility] [address] [place] [address], [place] [phone] * (ABNORMAL) POCT glucose (03/25/2022 11:30 AM CDT) GLUCOSE POC 197(H) 70 - 99 mg/dL 03/25/2022 11:32 AM CDT [facility] 03/25/2022 11:3 0 AM CDT us Robinson Block MD POCT ORDERABLES - DEVICE Fin al Result Performing Organization Address City/[facility] Co de Phone Number [facility] [address] [place] [address], [place] [phone] documented in this encounter Visit Diagnoses Diagnosis Lumbar stenosis with neurogenic claudication- Primary Spinal stenosis, lumbar region, with neurogenic claudication Bilateral foot-drop Other acquired deformity of ankle and foot documented in this encounter Administered Medications Inactive Administered Medications - up to 3 most recent administrations Medication Order MAR Action Action Date Dose Rate Site atorvastatin (LIPITOR) tablet 20 mg 20 mg, Oral, Nightly at bedtime, First dose on Fri03/25/22 at 2100, Until Discontinued, Per [facility] therapeutic interchange protocol; substitute for simvastatin Given 03/25/2022 9:58 PM CDT 20 mg calcium carbonate-vitamin D (OS-MARSHALL + D) 500 mg-5 mcg tablet 1 tablet 1 tablet, Oral, Daily, First dose on Fri03/25/22 at 1930, Until Discontinued, Per [facility] therapeutic interchange protocol Given 03/26/2022 8:46 AM CDT 1 tablet Given 03/25/2022 7:30 PM CDT 1 tablet ceFAZolin (ANCEF) 2 g in sodium chloride 0.9 % 100 mL IVPB 2 g, Intravenous, at 200 mL/hr, Every 8 hours, 2 doses, First dose on Fri03/25/22 at 2300, Last dose on Fri03/26/22 at 0700, Give 2 gram dose for patients less than 120 kg. PHARMACY TO ADJUST administration times based on pre-op/intra-op dose. Do NOT continue greater than 24 hours after anesthesia end time., Post-Op New Bag 03/26/2022 6:18 AM CDT 2 g 200 mL/hr New Bag 03/25/2022 11:32 PM CDT 2 g 200 mL/hr cloNIDine (CATAPRES) tablet 0.05 mg 0.05 mg, Oral, 2 times daily, First dose on Fri03/25/22 at 2100, Until Discontinued Given 03/26/2022 8:46 AM CDT 0.05 mg Given 03/25/2022 7:31 PM CDT 0.05 mg famotidine (PF) (PEPCID) injection 20 mg 20 mg, Intravenous, Once, 1 dose, On Fri03/25/22 at 1100, On admission IV Push over 2 minutes, Pre-Op Given 03/25/2022 12:49 PM CDT 20 mg fentaNYL (SUBLIMAZE) injection 25 mcg 25 mcg, Intravenous, Every 5 min PRN, Moderate pain (Scale 4 - 7), Moderate pain, 4 doses, Starting on Fri03/25/22 at 1732, Until Fri03/25/22 at 1910, Maximum cumulative dose 100 mcg. Do not administer if patient is overly sedated, SpO2 less than 90%, or Respiratory Rate less than 12. If more than one IV analgesic is ordered per pain level, use in this order: fentaNYL, morphine, HYDROmorphone. If desired pain control is not reached, move to next ordered medication at next dosing interval., PACU Given 03/25/2022 6:05 PM CDT 25 mcg furosemide (LASIX) tablet 20 mg 20 mg, Oral, Daily, First dose on Fri03/26/22 at 0900, Until Discontinued Given 03/26/2022 8:46 AM CDT 20 mg gabapentin (NEURONTIN) capsule 100 mg 100 mg, Oral, 3 times daily, First dose on Fri03/25/22 at 2100, Until Discontinued Given 03/26/2022 4:16 PM CDT 100 mg Given 03/26/2022 8:46 AM CDT 100 mg Given 03/25/2022 9:58 PM CDT 100 mg HYDROcodone-acetaminophen (NORCO) 5-325 MG tablet 1 tablet 1 tablet, Oral, Every 4 hours PRN, Moderate pain (Scale 4 - 7), Starting on Fri03/25/22 at 1903, Until Fri03/26/22 at 2338, Maximum dose of acetaminophen is 4000 mg from all sources in 24 hours., Post-Op Given 03/26/2022 8:55 AM CDT 1 tablet Given 03/25/2022 7:08 PM CDT 1 tablet HYDROcodone-acetaminophen (NORCO) 5-325 MG tablet 2 tablet 2 tablet, Oral, Every 4 hours PRN, Severe pain (Scale 8 - 10), Starting on Fri03/25/22 at 1903, Until Fri03/26/22 at 2338, Maximum dose of acetaminophen is 4000 mg from all sources in 24 hours., Post-Op Given 03/26/2022 8:31 PM CDT 2 tablets Given 03/26/2022 1:49 PM CDT 2 tablets HYDROcodone-acetaminophen (NORCO) 5-325 MG tablet 1 dose, Starting on Fri03/25/22 at 1907, Until Fri03/25/22 at 1908, Created by cabinet rosauraide insulin lispro (HUMALOG) injection 0-18 Units 0-18 Units, Subcutaneous, 3 times daily before meals, First dose on Fri03/25/22 at 1815, Until Discontinued, Blood Glucose (RESISTANT Dosing): [Less than 70:? Initiate Hypoglycemia Standing Orders] [71-140:? 0 units] [141-180:? 6 units] [181-220:? 8 units] [221-260:? 10 units] [261-300:? 12 units] [301-350:? 14 units] [351-400:? 16 units] [Greater than 400:? 18 units and Call Physician] Given 03/26/2022 6:02 PM CDT 14 Units Left Arm Given 03/26/2022 1:50 PM CDT 6 Units Ri ght Arm Given 03/26/2022 8:45 AM CDT 6 Units Le ft Arm insulin lispro (HUMALOG) injection 0-9 Units 0-9 Units, Subcutaneous, Nightly at bedtime, First dose on Fri03/25/22 at 2100, Until Discontinued, Blood Glucose (RESISTANT Dosing): [Less than 70:? Initiate Hypoglycemia Standing Orders] [71-180:? 0 units] [181-220:? 4 units] [221-260:? 5 units] [261-300:? 6 units] [301-350:? 7 units] [351-400:? 8 units] [Greater than 400:? 9 units and Call Physician] Given 03/25/2022 9:58 PM CDT 4 Units Left Arm lactated ringers infusion at 10 mL/hr, Intravenous, Continuous, Starting on Fri03/25/22 at 1100, Until Fri03/26/22 at 2338, Not to be given to patients with end stage renal disease or dialysis. Infuse at TKO rate, Pre-Op New Bag 03/25/2022 2:34 PM CDT methocarbamol (ROBAXIN) tablet 750 mg 750 mg, Oral, 3 times daily, First dose on Fri03/26/22 at 0000, Until Discontinued Given 03/26/2022 4:16 PM CDT 750 mg Given 03/26/2022 8:46 AM CDT 750 mg Given 03/25/2022 11:32 PM CDT 750 mg morphine injection 2 mg 2 mg, Intravenous, Every 1 hour PRN, Severe pain (Scale 8 - 10), Starting on Fri03/25/22 at 2106, Until Fri03/26/22 at 2338 ondansetron (ZOFRAN) injection 4 mg 4 mg, Intravenous, Once, 1 dose, On Fri03/25/22 at 1100, On admission, Pre-Op Given 03/25/2022 12:43 PM CDT 4 mg pantoprazole EC (PROTONIX) tablet 40 mg 40 mg, Oral, 2 times daily before meals, First dose on Fri03/25/22 at 1930, Until Discontinued, Do not break, chew, or crush. Given 03/26/2022 4:16 PM CDT 40 mg Given 03/26/2022 6:18 AM CDT 40 mg Given 03/25/2022 7:30 PM CDT 40 mg phenol (CHLORASEPTIC) spray 1 spray 1 spray, Mouth/Throat, As needed, Pain, Starting on Fri03/26/22 at 0622, Until Fri03/26/22 at 2338 senna-docusate (SENOKOT-S) 8.6-50 MG tablet 1 tablet 1 tablet, Oral, Nightly PRN, Constipation, May repeat X 1 if no BM or discomfort, Starting on Fri03/25/22 at 1910, Until Fri03/26/22 at 2338, Post-Op Given 03/25/2022 9:58 PM CDT 1 tablet sodium chloride 0.9% infusion at 75 mL/hr, Intravenous, Continuous, Starting on Fri03/25/22 at 1930, Until Fri03/26/22 at 2338, Post-Op New Bag 03/25/2022 10:08 PM CDT 75 mL /hr documented in this encounter Active and Recently Administered Medications Times are shown in CDT. Scheduled Medication Order 03/24/2022 03/25/2022 03/26/2022 atorvastatin (LIPITOR) tablet 20 mg 20 mg, Oral, Nightly at bedtime, First dose on Fri03/25/22 at 2100, Until Discontinued, Per [facility] therapeutic interchange protocol; substitute for simvastatin 2157 (Given - Provider: Martha Ambrose RN) 2099 (Canceled Entry - Provider: Automatic Discharge Provider - Comment: Automatically canceled at discontinue of medication order) calcium carbonate-vitamin D (OS-MARSHALL + D) 500 mg-5 mcg tablet 1 tablet 1 tablet, Oral, Daily, First dose on Fri03/25/22 at 1930, Until Discontinued, Per [facility] therapeutic interchange protocol 1929 (Given - Provider: Radha Barajas RN) 0846 (Given - Provider: Francoise Pak RN) ceFAZolin (ANCEF) 2 g in NS 100 mL IVPB (COMPLETED) 2 g, Intravenous, at 200 mL/hr, javascript ui developer to O.R., 1 dose, First dose on Fri03/25/22 at 1100, Pre-Op 1455 (Given - Provider: Jese Denson CRNA)1525 (Infusion Stop Time - Provider: Jese Denson CRNA) ceFAZolin (ANCEF) 2 g in sodium chloride 0.9 % 100 mL IVPB (COMPLETED) 2 g, Intravenous, at 200 mL/hr, Every 8 hours, 2 doses, First dose on Fri03/25/22 at 2300, Last dose on Fri03/26/22 at 0700, Give 2 gram dose for patients less than 120 kg. PHARMACY TO ADJUST administration times based on pre-op/intra-op dose. Do NOT continue greater than 24 hours after anesthesia end time., Post-Op 2332 (New Bag - Provider: Martha Ambrose RN) 0002 (Infusion Stop Time - Provider: Martha Ambrose RN)0618 (New Bag - Provider: Martha Ambrose RN)0647 (Infusion Stop Time - Provider: Martha Ambrose RN) cloNIDine (CATAPRES) tablet 0.05 mg 0.05 mg, Oral, 2 times daily, First dose on Fri03/25/22 at 2100, Until Discontinued 1930 (Given - Provider: Radha Barajas RN) 0846 (Given - Provider: Francoise Pak, SEBASTIÁN)2099 (Canceled Entry - Provider: Automatic Discharge Provider - Comment: Automatically canceled at discontinue of medication order) famotidine (PF) (PEPCID) injection 20 mg (COMPLETED) 20 mg, Intravenous, Once, 1 dose, On Fri03/25/22 at 1100, On admission IV Push over 2 minutes, Pre-Op 1249 (Given - Provider: Candis Wilson RN) furosemide (LASIX) tablet 20 mg 20 mg, Oral, Daily, First dose on Fri03/26/22 at 0900, Until Discontinued 0846 (Given - Provid er: Francoise Pak RN) gabapentin (NEURONTIN) capsule 100 mg 100 mg, Oral, 3 times daily, First dose on Fri03/25/22 at 2100, Until Discontinued 215 (Given - Provider: Martha Ambrose RN) 0846 (Given - Provider: Francoise Pak, SEBASTIÁN)1616 (Given - Provider: Francoise Pak RN)2100 (Canceled Entry - Provider: Automatic Discharge Provider - Comment: Automatically canceled at discontinue of medication order) insulin lispro (HUMALOG) injection 0-18 Units(Linked Group 1) 0-18 Units, Subcutaneous, 3 times daily before meals, First dose on Fri03/25/22 at 1815, Until Discontinued, Blood Glucose (RESISTANT Dosing): [Less than 70:? Initiate Hypoglycemia Standing Orders] [71-140:? 0 units] [141-180:? 6 units] [181-220:? 8 units] [221-260:? 10 units] [261-300:? 12 units] [301-350:? 14 units] [351-400:? 16 units] [Greater than 400:? 18 units and Call Physician] 1911 (Not Given - Provider: Radha Barajas RN - Reason: Other - Comment: patient in PACU, no meal given) 0845 (Given - Provider: Francoise Pak, SEBASTIÁN)1350 (Given - Provider: Francoise Pak RN)1802 (Given - Provider: Francoise Pak RN) insulin lispro (HUMALOG) injection 0-9 Units(Linked Group 1) 0-9 Units, Subcutaneous, Nightly at bedtime, First dose on Fri03/25/22 at 2100, Until Discontinued, Blood Glucose (RESISTANT Dosing): [Less than 70:? Initiate Hypoglycemia Standing Orders] [71-180:? 0 units] [181-220:? 4 units] [221-260:? 5 units] [261-300:? 6 units] [301-350:? 7 units] [351-400:? 8 units] [Greater than 400:? 9 units and Call Physician] 2158 (Given - Provider: Martha Ambrose RN) 2100 (Canceled Entry - Provider: Automatic Discharge Provider - Comment: Automatically canceled at discontinue of medication order) methocarbamol (ROBAXIN) tablet 750 mg 750 mg, Oral, 3 times daily, First dose on Fri03/26/22 at 0000, Until Discontinued 2332 (Given - Provider: Martha Ambrose RN) 0846 (Given - Provider: Francoise Pak, SEBASTIÁN)1616 (Given - Provider: Francoise Pak, SEBASTIÁN)2100 (Canceled Entry - Provider: Automatic Discharge Provider - Comment: Automatically canceled at discontinue of medication order) ondansetron (ZOFRAN) injection 4 mg (COMPLETED) 4 mg, Intravenous, Once, 1 dose, On Fri03/25/22 at 1100, On admission, Pre-Op 1243 (Given - Provider: Candis Wilson, SEBASTIÁN) pantoprazole EC (PROTONIX) tablet 40 mg 40 mg, Oral, 2 times daily before meals, First dose on Fri03/25/22 at 1930, Until Discontinued, Do not break, chew, or crush. 1930 (Given - Provider: Radha Barajas RN) 0618 (Given - Provider: Martha Ambrose, SEBASTIÁN)1616 (Given - Provider: Francoise Pak, SEBASTIÁN) Continuous Medication Order 03/24/2022 03/25/2022 03/26/2022 lactated ringers infusion at 10 mL/hr, Intravenous, Continuous, Starting on Fri03/25/22 at 1100, Until Fri03/26/22 at 2338, Not to be given to patients with end stage renal disease or dialysis. Infuse at TKO rate, Pre-Op 1434 (New Bag - Provider: Jese Denson CRNA)1735 (Anesthesia Volume Adjustment - Provider: Thomas Hatch CRNA)1744 (Anesthesia Volume Adjustment - Provider: Thomas Hatch CRNA) sodium chloride 0.9% infusion at 75 mL/hr, Intravenous, Continuous, Starting on Fri03/25/22 at 1930, Until Fri03/26/22 at 2338, Post-Op 2208 (New Bag - Provider: Irma Noyola RN) PRN Medication Order 03/24/2022 03/25/2022 03/26/2022 acetaminophen (TYLENOL) tablet 650 mg 650 mg, Oral, Every 6 hours PRN, Mild pain (Scale 1 - 3), Starting on Fri03/25/22 at 1910, Until Fri03/26/22 at 2338, Maximum dose of acetaminophen is 4000 mg from all sources in 24 hours., Post-Op albuterol sulfate HFA 108 (90 Base) MCG/ACT inhaler 2 puff 2 puff, Inhalation, PRN, Wheezing, Starting on Fri03/25/22 at 1910, Until Fri03/26/22 at 2338 bisacodyl (DULCOLAX) suppository 10 mg 10 mg, Rectal, Daily as needed, Constipation, Starting on Fri03/25/22 at 1910, Until Fri03/26/22 at 2338, Post-Op BUpivacaine 0.5 % (MARCAINE) 0.5 % injection (CANCELED) As needed, Starting on Fri03/25/22 at 1520, Until Fri03/25/22 at 1745, Intra-Op 1520 (Given - Provider: Robinson Block MD) fentaNYL (SUBLIMAZE) injection 25 mcg (CANCELED) 25 mcg, Intravenous, Every 5 min PRN, Moderate pain (Scale 4 - 7), Moderate pain, 4 doses, Starting on Fri03/25/22 at 1732, Until Fri03/25/22 at 1910, Maximum cumulative dose 100 mcg. Do not administer if patient is overly sedated, SpO2 less than 90%, or Respiratory Rate less than 12. If more than one IV analgesic is ordered per pain level, use in this order: fentaNYL, morphine, HYDROmorphone. If desired pain control is not reached, move to next ordered medication at next dosing interval., PACU 1805 (Given - Provider: Radha Barajas, RN) HYDROcodone-acetaminophen (NORCO) 5-325 MG tablet 1 tablet 1 tablet, Oral, Every 4 hours PRN, Moderate pain (Scale 4 - 7), Starting on Fri03/25/22 at 1903, Until Fri03/26/22 at 2338, Maximum dose of acetaminophen is 4000 mg from all sources in 24 hours., Post-Op 1908 (Given - Provider: Radha Barajas RN) 0855 (Given - Provider: Francoise Pak RN) HYDROcodone-acetaminophen (NORCO) 5-325 MG tablet 2 tablet 2 tablet, Oral, Every 4 hours PRN, Severe pain (Scale 8 - 10), Starting on Fri03/25/22 at 1903, Until Fri03/26/22 at 2338, Maximum dose of acetaminophen is 4000 mg from all sources in 24 hours., Post-Op 1349 (Given - Provid er: Francoise Pak RN)203 (Given - Provider: Martha Ambrose RN) lidocaine-EPINEPHrine 1 %-1:[id number] injection (CANCELED) As needed, Starting on Fri03/25/22 at 1520, Until Fri03/25/22 at 1745, Intra-Op 1520 (Given - Provider: Robinson Block MD) uluvbehea-figvkybx-picipwfe one (MYLANTA MAXIMUM STRENGTH) 9702-7386-395 mg/30mL suspension 10 mL, Oral, Every 4 hours PRN, Indigestion, Heartburn, Starting on Fri03/25/22 at 1910, Until Fri03/26/22 at 2338, Shake Well, Post-Op morphine injection 2 mg 2 mg, Intravenous, Every 1 hour PRN, Severe pain (Scale 8 - 10), Starting on Fri03/25/22 at 2106, Until Fri03/26/22 at 2338 NON FORMULARY (CANCELED) As needed, Starting on Fri03/25/22 at 1651, Until Fri03/25/22 at 1745, Intra-Op 1651 (Given - Provider: Robinson Block MD - Comment: surgiflo) ondansetron (ZOFRAN) injection 4 mg 4 mg, Intravenous, Every 8 hours PRN, Nausea, Vomiting, Starting on Fri03/25/22 at 1910, Until Fri03/26/22 at 2338, IV push over 2-5 minutes., Post-Op phenol (CHLORASEPTIC) spray 1 spray 1 spray, Mouth/Throat, As needed, Pain, Starting on Fri03/26/22 at 0622, Until Fri03/26/22 at 2338 senna-docusate (SENOKOT-S) 8.6-50 MG tablet 1 tablet 1 tablet, Oral, Nightly PRN, Constipation, May repeat X 1 if no BM or discomfort, Starting on Fri03/25/22 at 1910, Until Fri03/26/22 at 2338, Post-Op 2158 (Given - Provider: Martha Ambrose RN) vancomycin (VANCOCIN) injection (CANCELED) As needed, Starting on Fri03/25/22 at 1710, Until Fri03/25/22 at 1745, Intra-Op 1710 (Given - Provider: Robinson Block MD - Comment: used dry in opreative site) Linked Groups Order Group 1: insulin lispro (HUMALOG) injection 0-18 UnitsJump to med 0-18 Units, Subcutaneous, 3 times daily before meals, First dose on Fri03/25/22 at 1815, Until Discontinued, Blood Glucose (RESISTANT Dosing): [Less than 70:? Initiate Hypoglycemia Standing Orders] [71-140:? 0 units] [141-180:? 6 units] [181-220:? 8 units] [221-260:? 10 units] [261-300:? 12 units] [301- 350:? 14 units] [351-400:? 16 units] [Greater than 400:? 18 units and Call Physician] And insulin lispro (HUMALOG) injection 0-9 UnitsJump to med 0-9 Units, Subcutaneous, Nightly at bedtime, First dose on Fri03/25/22 at 2100, Until Discontinued, Blood Glucose (RESISTANT Dosing): [Less than 70:? Initiate Hypoglycemia Standing Orders] [71-180:? 0 units] [181-220:? 4 units] [221-260:? 5 units] [261-300:? 6 units] [301-350:? 7 units] [351- 400:? 8 units] [Greater than 400:? 9 units and Call Physician] documented in this encounter Care Teams Cable Strander Relationship Specialty Start Date End Date Lalito England MD [address] [place] [address] PCP - General INTERNAL MEDICINE 02/05/22 documented as of this encounter
--- OUTSIDE RECORDS SUMMARY | 2024-07-11 22:30 | XMS_ITS | Clinical Summary ---
Author Organization [facility] Address [address] [place] [address]. [place] [address] [place] [address] Care Team Providers Care Director Of Occupational Health Name Role Phone Lalito England MD Primary Care Provider [phone] Allergies No known active allergies Medications albuterol sulfate HFA 108 (90 Base) MCG/ACT inhaler Inhale 2 puffs into the lungs as needed. Active alendronate (FOSAMAX) 70 MG tablet Take 1 tablet by mouth once a week. Takes on Friday 2 Active calcium carbonate-vitam in D 600-200 MG-UNIT Tab Take 1 tablet by mouth daily. Active cloNIDine (CATAPRES) 0.1 MG tablet Take 0.5 tablets by mouth 2 (two) times daily. 2 Active fluticasone propionate (FLONASE) 50 MCG/ACT nasal spray 2 sprays by Nasal route daily. 2 Active furosemide (LASIX) 20 MG tablet Take 1 tablet by mouth daily. 2 Active gabapentin (NEURONTIN) 100 MG capsule Take 1 capsule by mouth 3 (three) times a day. 2 Active HYDROcodone-lisa taminophen (NORCO) 5-325 MG tablet Take 1 tablet by mouth 3 (three) times daily as needed. 2 Active insulin aspart (NOVOLOG FLEXPEN) 100 UNIT/ML injection (PEN) INJECT 32 UNITS UNDER THE SKIN 3 (THREE) TIMES A DAY BEFORE MEALS 2 Active insulin glargine (LANTUS SOLOSTAR) 100 UNIT/ML injection (PEN) 48 Units nightly. 48 units at night 2 Active montelukast (SINGULAIR) 10 MG tablet Take 1 tablet by mouth nightly at bedtime. 2 Active naloxone (NARCAN) 4 MG/0.1ML nasal spray 1 spray by Nasal route. 2 Active simvastatin (ZOCOR) 40 MG tablet Take 1 tablet by mouth nightly. 2 Active ondansetron (ZOFRAN) 4 MG tablet 4 mg every 6 (six) hours as needed for Nausea. 2 Active acetaminophen (TYLENOL) 325 MG tablet Take 650 mg by mouth every 4 (four) hours as needed for Pain. Active bisacodyl (BISACODYL LAXATIVE) [address] 10 mg rectally daily as needed for Constipation. Active magnesium citrate 1.745 GM/30ML Solution Take 296 mLs by mouth once. Active docusate sodium (COLACE) 100 MG capsule Take 100 mg by mouth daily. Give one time a day every 2 days for constipation Active omeprazole (PRILOSEC) 20 MG capsule Take 20 mg by mouth 2 (two) times a day. Active loperamide (IMODIUM) 2 MG capsule Take 2 mg by mouth 4 (four) times daily as needed for Diarrhea. Active Active Problems No known active problems Social History Tobacco Use Types Packs/Day Years Used Date Smoking Tobacco: Never Smokeless Tobacco: Never Alcohol Use Standard Drinks/Week Comments Never 0 (1 standard drink = 0.6 oz pur e alcohol) Comments No Sex and Gender Information Value Date Recorded Sex Assigned at Not on file Legal Sex Female 4:23 PM CDT Gender Identity Not on file Sexual Orientation Not on file Last Filed Vital Signs Vital Sign Reading [...] Mass Index 37.12 03/25/2022 7:30 PM CDT Plan of Treatment Health Maintenance Due Date Last Done Comments Colorectal Cancer Screening Colonoscopy (10 Years) 1949 Hepatitis C 1967 DTaP, Tdap and Td Vaccines (1 - Tdap) 1968 Zoster Vaccines (1 of 2) 1999 Annual Medicare Wellness Visit 2014 Dexa Scan (General) 2014 COVID-19 Vaccine (3 - season) 2024 10/03/2020, 09/12/2020 Influenza Adult (#1) 2024 06/25/2021, 08/02/2019, 06/17/2016, Additional history exists RSV Immunization or 60+ Years (1 - 1-dose 75+ series) 2024 Pneumococcal Vaccine: 65+ Years Completed 12/27/2016, 03/29/2015 Meningococcal Vaccine Aged Out No alissa david eligible based on patient's age to complete this topic RSV Immunizations Under 20 Months Aged Out No longer eligible based on patient's age to complete this topic Insurance [employer] Advance Directives * Full Code (Latest Code Status on File) Date Activated Date Inactivated Comments 03/25/2022 7:10 PM 03/26/2022 11:38 PM Care Teams Director Of Occupational Health Relationship Specialty Start Date End [place] [id number] PCP - General INTERNAL MEDICINE 02/05/22
--- OUTSIDE RECORDS SUMMARY | 2024-07-11 22:31 | XMS_ITS | Encounter Summary ---
Author Organization [facility] Address [address] [place] [address] Phone Care Team Providers Care Labor Supervisor Name Role Phone Unavailable Primary Care Provider Unavailabl e Encounter Details Date Type Department Care Team (Late st Contact Info) Description 02/14/2022 Nursing Facility [facility] [address] [place] [address] Robinson Villarreal, PAC [address] [place] [address] [id number] Social History Tobacco Use Types Packs/Day Years Used Date Smoking Tobacco: Never Assessed Comments Unknown Sex and Gender Information Value Date Recorded Sex Assigned at Not on file Legal Sex Female 7:54 PM CDT Gender Identity Not on file Sexual Orientation Not on file documented as of this encounter Progress Notes * Robinson Villarreal, LINH - 02/14/2022 3:44 PM CDT [facility] PROGRESS NOTE Criss Ly is a 71 y.o. female at [facility] for rehabilitation. Prior to coming to rehabilitation facility patient had been hospitalized for progressive weakness and frequent falls, workup showing stenosis of at a level of the cervical spine.. Subjective: Interval History: Patient reports that overall she is feeling ???better?? . Feels like her COVID- 19 symptoms are resolving. She denies any other concerns to me at this time. Therapy tells me that she seems to be declining, less motivated recently. Unclear if this is psychiatric because of her overall health or because she is still recovering from the COVID-19 infection. Past medical history: Type 2 diabetes mellitus Chronic kidney disease Diabetic peripheral neuropathy Hypertension Hyperlipidemia Review of Systems: A 14 point comprehensive review of systems was negative except what is documented in interval history above. Objective: Exam: Vital Signs: B/P: 115/60 Pulse: 84 Respirations: 18 Temperature: 98.1 General: Well developed, well nourished, in no distress Skin: Normal appearance, normal turgor, 01/28 - on left lateral malleolus there is a 1 cm x 3 cm wound with minimal surrounding erythema and no drainage, wound is scabbed over at this point. Also on lateral mid left foot there is a 1 cm in diameter wound that is scabbed over with no surrounding erythema. HEENT: Normocephalic, atraumatic, no flaring Eyes: nonicteric, intact extra occular movement, PERRL Neck: normal, supple, no lymphadenopathy Heart: regular rate and rhythm, S1, S2 normal, no murmur, click, rub or gallop Lungs: clear to ausculation, normal respirations, normal precautions Abdominal: soft, non-tender; bowel sounds normal; no masses, no organomegaly Extremities: no deformities, joint mobility appears intact, no clubbing - 2+ pitting edema in both lower extremities Neuro: Non-focal, CN intact, sensory and motor intact Psychological: alert and oriented X3, appropriate mood and affect, Intact judgement and memory Lab Results: On 01/16/2021 hospital, CBC with WBC of 10.4, hemoglobin 11.3 otherwise unremarkable. CMP with a creatinine of 2.2 otherwise unremarkable. Imaging: None Assessment/Plan: Generalized weakness and deconditioning Receiving retirement care and physical therapy rehabilitation 02/14 - therapy says that she is declining. Acute COVID-19 infection 02/07 - diagnosed yesterday which is when symptoms began. Her GFR is 30. She would rather not do thepaxlovid because of concerns about her kidney function and is requesting the bebtelovimab which I am ordering now. P.r.n. throat lozenges and Tessalon ordered. 02/11 - received the bebtelovimab 2 days ago. Diarrhea and vomiting started last night which presumably is COVID-19 symptoms. P.r.n. Imodium and Zofran ordered and encouraged clear liquids and bland foods until GI symptoms resolve. 02/14 - improving Chronic neck pain with stenosis of cervical spine This is felt to be the cause of her progressive weakness and frequent falls Has appointment with Neurosurgery on February 0502/07 - according to patient, neurosurgeon feels that this condition is non operable. Going to review her medical records and discuss further. Insulin-dependent diabetes mellitus Home regimen will be continued and includes high-dose scheduled NovoLog before each meal and Lantusin addition to glipizide Monitor Accu-Cheks and adjust regimen as necessary 01/31 - blood sugars at acceptable levels overall Diabetic peripheral neuropathy Continue gabapentin Stable Wounds on left foot 01/28 - appear to be well healing. No signs of infection or deep space involvement. She has been using mupirocin twice daily that was prescribed by her PCP and recommended that she continue to use that. 02/14 - improving Constipation Continue p.r.n. bowel regimen 01/28 - uncontrolled. Will add on Colace every other day. 01/31 - better Trouble sleeping Mainly circumstantial with roommate leaving TV on all night 01/28 - low-dose melatonin started Chronic kidney disease stage [address] Paige Avoid nephrotoxic agents Congestive heart failure On Lasix No signs of acute Hypertension Continue clonidine Monitor blood pressures Right lower extremity DVT Diagnosed in 01/17. Found to have a nonocclusive thrombus in right mid superficial femoral vein. Being treated with Eliquis. This is her 1st DVT. [place] to be provoked due to recent falls. Other chronic medical conditions include Chronic back pain, hyperlipidemia, GERD, osteoporosis, asthma Continue home regimen VTE Prophylaxis: On Eliquis for right lower extremity DVT I discussed advanced care planning with this patient. This note was dictated using M*Modal fluency dictation system and there may be errors in dinkey operator slag. Despite proof reading the note, there may be mistakes and I apologize for those. By: LINH Acosta, 02/14/2022 3:44 PM CDT documented in this encounter Plan of Treatment Not on file documented as of this encounter Visit Diagnoses Not on filedocumented in this encounter
--- OUTSIDE RECORDS SUMMARY | 2024-07-11 22:31 | XMS_ITS | Encounter Summary ---
Author Organization [facility] Address [address] [place] [address] Phone Care Team Providers Care Service Advocate Contact Name Role Phone Unavailable Primary Care Provider Unavailabl e Encounter Details Date Type Department Care Team (Late st Contact Info) Description 04/30/2022 Nursing Facility [facility] [address] [place] [address] Robinson Villarreal, PAC [address] [place] [address] [id number] Social History Tobacco Use Types Packs/Day Years Used Date Smoking Tobacco: Never Assessed Comments Unknown Sex and Gender Information Value Date Recorded Sex Assigned at Not on file Legal Sex Female 7:54 PM CDT Gender Identity Not on file Sexual Orientation Not on file documented as of this encounter Progress Notes * Robinson Villarreal, LINH - 04/30/2022 2:24 PM CDT [facility] PROGRESS NOTE Criss Ly is a 72 y.o. female at [facility] for rehabilitation. Prior to coming to rehabilitation facility patient had been hospitalized for progressive weakness and frequent falls, workup showing stenosis of at a level of the cervical spine.. Subjective: Interval History: Patient reports she is feeling ???pretty good?? overall. She feels like her right leg is getting to get more swollen again. Denies any pain in right leg. Noshortness of breath or any other symptoms or concerns. Past medical history: Type 2 diabetes mellitus Chronic kidney disease Diabetic peripheral neuropathy Hypertension Hyperlipidemia Review of Systems: A 14 point comprehensive review of systems was negative except what is documented in interval history above. Objective: Exam: Vital Signs: B/P: 132/74 Pulse: 78 Respirations: 16 Temperature: 96.4 General: Well developed, well nourished, in no distress, pleasant, obese Skin: Normal appearance, normal turgor, no rash HEENT: Normocephalic, atraumatic, no flaring Eyes: nonicteric, intact extra occular movement, PERRL Neck: normal, supple, no lymphadenopathy Heart: regular rate and rhythm, S1, S2 normal, no murmur, click, rub or gallop Lungs: clear to ausculation, normal respirations, normal precautions Abdominal: soft, non-tender; bowel sounds normal; no masses, no organomegaly Extremities: no deformities, joint mobility appears intact, no clubbing -04/11 - trace pitting edemain both lower extremities Neuro: Non-focal, CN intact, sensory and motor intact Psychological: alert and oriented X3, appropriate mood and affect, Intact judgement and memory Lab Results: On 01/16/2021 hospital, CBC with WBC of 10.4, hemoglobin 11.3 otherwise unremarkable. CMP with a creatinine of 2.2 otherwise unremarkable. 01/21: CMP with a BUN of 26, creatinine 1.7, albumin 3.1. A1c of 7.1. CBC with hemoglobin 11.3 otherwise unremarkable. 03/27: BMP with glucose 157, creatinine 1.3, calcium 8.3 otherwise unremarkable. CBC with hemoglobin9.9 otherwise unremarkable. 04/24: CMP with creatinine 1.2, calcium 8.2, albumin 3.0 otherwise unremarkable. Imaging: Chest x-ray on 03/05: CONCLUSION: No acute cardiopulmonary process. EKG on 03/05: FINDINGS: Normal sinus rhythm Normal ECG. Normal ECG. Intervals: Assessment/Plan: Right lower extremity DVT Diagnosed in 01/17. Found to have a nonocclusive thrombus in right mid superficial femoral vein. Being treated with Eliquis. This is her 1st DVT. [place] to be provoked due to recent falls. Resolved - had repeat Doppler done on right lower extremity on 03/13 as part of her preoperative considerations and Doppler was negative for DVT. Anticoagulation has been discontinued. 04/18 - clinically no signs that is returned. 04/30 - subjectively having worsening edema of right leg. Objectively is difficult to tell. Considering her history will check a Doppler to rule out DVT. Congestive heart failure On Lasix No signs of acute 04/23 - patient thinking that she might be getting over diuresed because of polyuria. And her lowerextremity edema is better today than what it typically is. However she is only on 20 mg of furosemide. So this could be overactive bladder for UTI or other versus over-diuresis.. Will continue current regimen and monitor. Check CMP tomorrow morning and a urinalysis to rule out UTI. 04/26 - workup of her polyuria and occasional urge incontinence unremarkable. Will decrease dose offurosemide 10 mg per patient's request, she was on this dose before. If symptoms persist will need to start on medicine for overactive bladder. Chronic neck pain with stenosis of cervical spine and lumbar spine This is felt to be the cause of her progressive weakness and frequent falls Has appointment with Neurosurgery on February 0502/07 - according to patient, neurosurgeon feels that this condition is non operable. Going to review her medical records and discuss further. Has neurosurgery follow-up on 02/26 03/01 - Now planning on lumbar surgery. Not scheduled yet. I will order some pre- op testing. 03/05 - Neurosurgery planning on having IVC filter placed just before the surgery. According to the patient Eliquis will need to be held 7 days prior to the surgery and for 2 weeks after. No surgical date yet. Patient says that her PCP and telemetry tech have already given medical clearance to the surgeon. 03/28 - return to facility yesterday after having lumbar surgery. Being followed by neurosurgery . Nursing staff providing wound care to surgical site. P.r.n. pain medicines. Receiving therapy again. 04/08 - has virtual follow-up with surgeon on 04/10 04/15 - improving Generalized weakness and deconditioning Receiving [facility] care and physical therapy rehabilitation 04/11 - significant improvement over the last 1 week Insulin-dependent diabetes mellitus Home regimen will be continued and includes high-dose scheduled NovoLog before each meal and Lantusin addition to glipizide Monitor Accu-Cheks and adjust regimen as necessary 04/08 - blood sugars at acceptable levels overall other than occasional spikes Diabetic peripheral neuropathy Continue gabapentin Stable Chronic kidney disease stage [address] Paige Avoid nephrotoxic agents Hypertension Continue clonidine Monitor blood pressures Other chronic medical conditions include Chronic back pain, hyperlipidemia, GERD, osteoporosis, asthma Continue home regimen VTE Prophylaxis: Activity I discussed advanced care planning with this patient. Disposition: 04/18 - had insurance cut this week. She is appealing. Still needing assistance and notable to go home regardless. Will be the knee does stay here as she continues to recover or go to a supportive living facility This note was dictated using [employer] fluency dictation system and there may be errors in field sales consultant. Despite proof reading the note, there may be mistakes and I apologize for those. By: LINH Acosta, 04/30/2022 2:25 PM CDT documented in this encounter Plan of Treatment Not on file documented as of this encounter Visit Diagnoses Not on filedocumented in this encounter
--- OUTSIDE RECORDS SUMMARY | 2024-07-11 22:31 | XMS_ITS | Encounter Summary ---
Author Organization [facility] Address [address] [place] [address] Phone Care Team Providers Care Keno Writer/Runner Name Role Phone Unavailable Primary Care Provider Unavailabl e Encounter Details Date Type Department Care Team (Late st Contact Info) Description 02/18/2022 Nursing Facility [facility] [address] [place] [address] Robinson Villarreal, PAC [address] [place], [place] [id number] Social History Tobacco Use Types Packs/Day Years Used Date Smoking Tobacco: Never Assessed Comments Unknown Sex and Gender Information Value Date Recorded Sex Assigned at Not on file Legal Sex Female 7:54 PM CDT Gender Identity Not on file Sexual Orientation Not on file documented as of this encounter Progress Notes * Robinson Villarreal, LINH - 02/18/2022 2:14 PM CDT [facility] PROGRESS NOTE Criss Ly is a 71 y.o. female at [facility] for rehabilitation. Prior to coming to rehabilitation facility patient had been hospitalized for progressive weakness and frequent falls, workup showing stenosis of at a level of the cervical spine.. Subjective: Interval History: Patient reports that overall she is feeling ???okay?? . No acute symptoms or concerns. Says that it feels like her COVID-19 infection has decreased her strength and endurance. Past medical history: Type 2 diabetes mellitus Chronic kidney disease Diabetic peripheral neuropathy Hypertension Hyperlipidemia Review of Systems: A 14 point comprehensive review of systems was negative except what is documented in interval history above. Objective: Exam: Vital Signs: B/P: 115/60 Pulse: 80 Respirations: 18 Temperature: 98.5 General: Well developed, well nourished, in no [...] 7.1. CBC with hemoglobin 11.3 otherwise unremarkable. Imaging: None Assessment/Plan: Generalized weakness and deconditioning Receiving senior care care and physical therapy rehabilitation 02/14 - therapy says that she is declining. 02/18 - patient feels like her COVID infection has affected her strength and endurance Acute COVID-19 infection 02/07 - diagnosed yesterday [...] Monitor Accu-Cheks and adjust regimen as necessary 02/18 - blood sugars at acceptable levels overall [...] all night 01/28 - low-dose melatonin started 02/18 - better Chronic kidney disease stage [address] Paige Avoid nephrotoxic agents Congestive heart failure On Lasix No signs of acute Hypertension Continue clonidine Monitor blood pressures Right lower extremity DVT Diagnosed in 01/17. Found to have a nonocclusive thrombus in right mid superficial femoral vein. Being treated with Eliquis. This is her 1st DVT. [place] to be provoked due to recent falls. Other chronic medical conditions include Chronic back pain, hyperlipidemia, GERD, osteoporosis, asthma Continue home regimen VTE Prophylaxis: On Eliquis for right lower extremity DVT I discussed advanced care planning with this patient. This note was dictated using M*Modal fluency dictation system and there may be errors in atomic fuel assembler. Despite proof reading the note, there may be mistakes and I apologize for those. By: Robinson Villarreal, LINH, 02/18/2022 2:15 PM CDT documented in this encounter Plan of Treatment Not on file documented as of this encounter Visit Diagnoses Not on filedocumented in this encounter
--- OUTSIDE RECORDS SUMMARY | 2024-07-11 22:31 | XMS_ITS | Encounter Summary ---
Author Organization [facility] Address [address] [place] [address] Phone Care Team Providers Care Sourcing Engineer Name Role Phone Unavailable Primary Care Provider Unavailabl e Encounter Details Date Type Department Care Team (Late st Contact Info) Description 04/04/2022 Nursing Facility [facility] [address] [place] [address] Robinson Villarreal, PAC [address] [place] [id number] Social History Tobacco Use Types Packs/Day Years Used Date Smoking Tobacco: Never Assessed Comments Unknown Sex and Gender Information Value Date Recorded Sex Assigned at Not on file Legal Sex Female 7:54 PM CDT Gender Identity Not on file Sexual Orientation Not on file documented as of this encounter Progress Notes * Robinson Villarreal, LINH - 04/04/2022 3:26 PM CDT [facility] PROGRESS NOTE Criss Ly is a 71 y.o. female at [facility] for rehabilitation. Prior to coming to rehabilitation facility patient had been hospitalized for progressive weakness and frequent falls, workup showing stenosis of at a level of the cervical spine.. Subjective: Interval History: Patient reports she is feeling ???okay?? . Sitting comfortably in chair. Pain is well controlled. HAs virtual follow-up with her nurse surgeon soon. She is somewhat upset, wishing that she would be recovering more quickly than what she is. Past medical history: Type 2 diabetes mellitus Chronic kidney disease Diabetic peripheral neuropathy Hypertension Hyperlipidemia Review of Systems: A 14 point comprehensive review of systems was negative except what is documented in interval history above. Objective: Exam: Vital Signs: B/P: 144/62 Pulse: 81 Respirations: 18 Temperature: 97.3. General: Well developed, well nourished, in no [...] 2+ pitting edema in both lower extremities 04/01 - trace pitting edema in both lower extremities Neuro: [...] otherwise unremarkable. CBC with hemoglobin9.9 otherwise unremarkable. Imaging: Chest x-ray on 03/05: CONCLUSION: No acute cardiopulmonary process. EKG on 03/05: FINDINGS: Normal sinus rhythm Normal ECG. Normal ECG. Intervals: Assessment/Plan: Chronic neck pain with stenosis of cervical [...] yet. Patient says that her PCP and chro have already given medical clearance to the surgeon. 03/28 - return to facility yesterday after having lumbar surgery. Being followed by neurosurgery . Nursing staff providing wound care to surgical site. P.r.n. pain medicines. Receiving therapy again. Generalized weakness and deconditioning Receiving correction care and physical therapy rehabilitation Insulin-dependent diabetes mellitus Home regimen will be continued and includes high-dose scheduled NovoLog before each meal and Lantusin addition to glipizide Monitor Accu-Cheks and adjust regimen as necessary 04/04 - blood sugars at acceptable levels overall other than occasional spikes Diabetic peripheral neuropathy Continue gabapentin Stable Trouble sleeping Mainly circumstantial with roommate leaving [...] with Eliquis. This is her 1st DVT. [place] to be provoked due to recent falls. Resolved - had repeat Doppler done on right lower extremity on 03/13 as part of her preoperative considerations and Doppler was negative for DVT. Anticoagulation has been discontinued. Other chronic medical conditions include Chronic back pain, hyperlipidemia, GERD, osteoporosis, asthma Continue home regimen VTE Prophylaxis: Activity I discussed advanced care planning with this patient. This note was dictated using M*Modal fluency dictation system and there may be errors in dye tank tender. Despite proof reading the note, there may be mistakes and I apologize for those. By: LINH Acosta, 04/04/2022 3:26 PM CDT documented in this encounter Plan of Treatment Not on file documented as of this encounter Visit Diagnoses Not on filedocumented in this encounter
--- OUTSIDE RECORDS SUMMARY | 2024-07-11 22:31 | XMS_ITS | Clinical Summary ---
Author Organization [facility] Care Team Providers Care Rehab Technician Name Role Phone Unavailable Primary Care Provider Unavailabl e Social History Tobacco Use Types Packs/Day Years Used Date Smoking Tobacco: Never Assessed Comments Unknown Sex and Gender Information Value Date Recorded Sex Assigned at Not on file Legal Sex Female 7:54 PM CDT Gender Identity Not on file Sexual Orientation Not on file Plan of Treatment Not on file
--- OUTSIDE RECORDS SUMMARY | 2024-07-11 22:31 | XMS_ITS | Encounter Summary ---
Author Organization [facility] Address [address] [place] [address] Phone Care Team Providers Care Mushroom Cutter Name Role Phone Unavailable Primary Care Provider Unavailabl e Encounter Details Date Type Department Care Team (Late st Contact Info) Description 04/01/2022 Nursing Facility [facility] [address] [place] [address] Robinson Villarreal, PAC [address] [place], [place] [id number] Social History Tobacco Use Types Packs/Day Years Used Date Smoking Tobacco: Never Assessed Comments Unknown Sex and Gender Information Value Date Recorded Sex Assigned at Not on file Legal Sex Female 7:54 PM CDT Gender Identity Not on file Sexual Orientation Not on file documented as of this encounter Progress Notes * Robinson Villarreal, LINH - 04/01/2022 2:10 PM CDT [facility] PROGRESS NOTE Criss Ly is a 71 y.o. female at [facility] for rehabilitation. Prior to coming to rehabilitation facility patient had been hospitalized for progressive weakness and frequent falls, workup showing stenosis of at a level of the cervical spine.. Subjective: Interval History: Patient reports she is feeling ???fine?? . Lying comfortably in bed. Denies any acute symptoms or concerns. Says her swelling in her legs is better than what it normally is. Feels like she has normalp.o. intake. Feels like pain is tolerable. Therapy is going well. Past medical history: Type 2 diabetes mellitus Chronic kidney disease Diabetic peripheral neuropathy Hypertension Hyperlipidemia Review of Systems: A 14 point comprehensive review of systems was negative except what is documented in interval history above. Objective: Exam: Vital Signs: B/P: 124/70 Pulse: 68 Respirations: 18 Temperature: 96.8. General: Well developed, well nourished, in no [...] yet. Patient says that her PCP and disc sander have already given medical clearance to the surgeon. 03/28 - return to facility yesterday after having lumbar surgery. Being followed by neurosurgery . Nursing staff providing wound care to surgical site. P.r.n. pain medicines. Receiving therapy again. Generalized weakness and deconditioning Receiving [facility] care and physical therapy rehabilitation Insulin-dependent diabetes mellitus Home regimen will be continued and includes high-dose scheduled NovoLog before each meal and Lantusin addition to glipizide Monitor Accu-Cheks and adjust regimen as necessary 02/18 - blood sugars at acceptable levels overall Diabetic peripheral neuropathy Continue gabapentin Stable Trouble [...] with Eliquis. This is her 1st DVT. [place] to be provoked due to recent falls. [...] system and there may be errors in central melt specialist. Despite proof reading the note, there may be mistakes and I apologize for those. By: LINH Acosta, 04/01/2022 2:11 PM CDT documented in this encounter Plan of Treatment Not on file documented as of this encounter Visit Diagnoses Not on filedocumented in this encounter
--- OUTSIDE RECORDS SUMMARY | 2024-07-11 22:31 | XMS_ITS | Encounter Summary ---
Author Organization [facility] Address [address] [place] [address]. [place], [place] [id number] [place] [id number] Care Team Providers Care Scientist Engineer Name Role Phone Lalito England MD Primary Care Provider [phone] Encounter Details Date Type Department Care Team (Latest Contact Info) Description 03/20/2022 Travel Social History Tobacco Use Types Packs/Day [...] suspected to have Coronavirus/COVID-19? No / Unsure 03/20/2022 10:07 AM CDT documented as of this encounter Plan of Treatment Not on file documented as of this encounter Visit Diagnoses Not on filedocumented in this encounter Care Teams Scientist Engineer Relationship Specialty Start Date End Date [place] [place] [id number] PCP - General INTERNAL MEDICINE 02/05/22 documented as of this encounter
--- OUTSIDE RECORDS SUMMARY | 2024-07-11 22:31 | XMS_ITS | Encounter Summary ---
Author Organization [facility] Address [address] [place] [address]. [place], [place] [id number] [place] [address] Care Team Providers Care Address Change Clerk Name Role Phone Lalito England MD Primary Care Provider [phone] Encounter Details Date Type Department Care Team (Latest Contact Info) Description 02/05/2022 Travel Social History Tobacco Use Types Packs/Day [...] suspected to have Coronavirus/COVID-19? No / Unsure 02/05/2022 4:24 PM CDT documented as of this encounter Plan of Treatment Not on file documented as of this encounter Visit Diagnoses Not on filedocumented in this encounter Care Teams Address Change Clerk Relationship Specialty Start Date End [place] [id number] PCP - General INTERNAL MEDICINE 02/05/22 documented as of this encounter
--- OUTSIDE RECORDS SUMMARY | 2024-07-11 22:31 | XMS_ITS | Encounter Summary ---
Author Organization [facility] Address [address] [place] [address] Phone Care Team Providers Care Hoe Worker Name Role Phone Unavailable Primary Care Provider Unavailabl e Encounter Details Date Type Department Care Team (Late st Contact Info) Description 01/23/2022 Nursing Facility [facility] [address] [place] [address] Robinson Villarreal, PAC [address] [place] [id number] Social History Tobacco Use Types Packs/Day Years Used Date Smoking Tobacco: Never Assessed Comments Unknown Sex and Gender Information Value Date Recorded Sex Assigned at Not on file Legal Sex Female 7:54 PM CDT Gender Identity Not on file Sexual Orientation Not on file documented as of this encounter Progress Notes * Robinson Villarreal, LINH - 01/23/2022 11:44 AM CDT [facility] PROGRESS NOTE Criss Ly is a 71 y.o. female at [facility] for rehabilitation. Prior to coming to rehabilitation facility patient had been hospitalized for progressive weakness and frequent falls, workup showing stenosis of at a level of the cervical spine.. Subjective: Interval History: Patient reports she is feeling ???pretty good?? . No acute symptoms or concerns. She has neurosurgery appointment on February 05 and is very anxious about that appointment. Past medical history: Type 2 diabetes mellitus Chronic kidney disease Diabetic peripheral neuropathy Hypertension Hyperlipidemia Review of Systems: A 14 point comprehensive review of systems was negative except what is documented in interval history above. Objective: Exam: Vital Signs: B/P: 140/82 Pulse: 96 Respirations: 18 Temperature: 97.8 General: Well developed, well nourished, in no distress Skin: Normal appearance, normal turgor, no rashes HEENT: Normocephalic, atraumatic, no flaring Eyes: nonicteric, [...] None Assessment/Plan: Generalized weakness and deconditioning Receiving long-term care and physical therapy rehabilitation Chronic neck pain with stenosis of cervical spine This is felt to be the cause of her progressive weakness and frequent falls Has appointment with Neurosurgery on February 05 Insulin-dependent diabetes mellitus Home regimen will be continued and includes high-dose scheduled NovoLog before each meal and Lantusin addition to glipizide Monitor Accu-Cheks and adjust regimen as necessary Stable Diabetic peripheral neuropathy Continue gabapentin Stable Chronic kidney disease stage [address] Paige Avoid nephrotoxic agents Congestive heart failure On Lasix No signs of acute Hypertension Continue clonidine Monitor blood pressures Other chronic medical conditions include Chronic back pain, hyperlipidemia, GERD, osteoporosis, asthma Continue home regimen VTE Prophylaxis: Activity. Chemical prophylaxis contraindicated due to fall risk. I discussed advanced care planning with this patient. Advance Care Planning: Aggregate [id number] time, greater than 16 minutes was spent discussing end-of-life care planning with patient/family and/or Power of Wet Finisher. Discussed CPR, Intubation, treatment goals, and Quality of life/Intensity of care. Patient desires CPR-Full Treatment This note was dictated using M*Modal fluency dictation system and there may be errors in outpatient coding specialist. Despite proof reading the note, there may be mistakes and I apologize for those. By: Robinson Villarreal, PAC, 01/23/2022 11:44 AM CDT documented in this encounter Plan of Treatment Not on file documented as of this encounter Visit Diagnoses Not on filedocumented in this encounter
--- OUTSIDE RECORDS SUMMARY | 2024-07-11 22:31 | XMS_ITS | Encounter Summary ---
Author Organization [facility] Address [address] [place] [address] Phone Care Team Providers Care Social Services Manager Name Role Phone Unavailable Primary Care Provider Unavailabl e Encounter Details Date Type Department Care Team (Late st Contact Info) Description 04/18/2022 Nursing Facility [facility] [address] [place] [address] Robinson Villarreal, PAC [address] [place], [place] [id number] Social History Tobacco Use Types Packs/Day Years Used Date Smoking Tobacco: Never Assessed Comments Unknown Sex and Gender Information Value Date Recorded Sex Assigned at Not on file Legal Sex Female 7:54 PM CDT Gender Identity Not on file Sexual Orientation Not on file documented as of this encounter Progress Notes * Robinson Villarreal, LINH - 04/18/2022 3:23 PM CDT [facility] PROGRESS NOTE Criss Ly is a 71 y.o. female at [facility] for rehabilitation. Prior to coming to rehabilitation facility patient had been hospitalized for progressive weakness and frequent falls, workup showing stenosis of at a level of the cervical spine.. Subjective: Interval History: Patient reports she is feeling ???good?? . Sitting comfortably in chair. Says pain is well controlled. She has no acute medical symptoms. Continues to do well with therapy. Ambulating 50 ft. No longer needs sit to stand. Struggling with stairs and still needing assistance with ADLs. Had insurance cut. She is appealing. Nursing staff has no concerns. Past medical history: Type 2 diabetes mellitus Chronic kidney disease Diabetic peripheral neuropathy Hypertension Hyperlipidemia Review of Systems: A 14 point comprehensive review of systems was negative except what is documented in interval history above. Objective: Exam: Vital Signs: B/P: 132/74 Pulse: 80 Respirations: 18 Temperature: 97.6 General: Well developed, well nourished, in no [...] yet. Patient says that her PCP and senior clinical data coordinator have already given medical clearance to the surgeon. 03/28 - return to facility yesterday after having lumbar surgery. Being followed by neurosurgery . Nursing staff providing wound care to surgical site. P.r.n. pain medicines. Receiving therapy again. 04/08 - has virtual follow-up with surgeon on 04/10 04/15 - improving Generalized weakness and deconditioning Receiving care home care and physical therapy rehabilitation 04/11 - [...] with Eliquis. This is her 1st DVT. [place] to be provoked due to recent falls. Resolved - had repeat Doppler done on right lower extremity on 03/13 as part of her preoperative considerations and Doppler was negative for DVT. Anticoagulation has been discontinued. 04/18 - clinically no signs that is returned. Other chronic medical conditions include Chronic back [...] living facility This note was dictated using M*Modal fluency dictation system and there may be errors in assorter. Despite proof reading the note, there may be mistakes and I apologize for those. By: LINH Acosta, 04/18/2022 3:24 PM CDT documented in this encounter Plan of Treatment Not on file documented as of this encounter Visit Diagnoses Not on filedocumented in this encounter
--- OUTSIDE RECORDS SUMMARY | 2024-07-11 22:31 | XMS_ITS | Encounter Summary ---
Author Organization [facility] Address [address] [place] [address] Phone Care Team Providers Care Registration Specialist Name Role Phone Unavailable Primary Care Provider Unavailabl e Encounter Details Date Type Department Care Team (Late st Contact Info) Description 04/11/2022 Nursing Facility [facility] [address] [place] [address] Robinson Villarreal, PAC [address] [place], [place] [id number] Social History Tobacco Use Types Packs/Day Years Used Date Smoking Tobacco: Never Assessed Comments Unknown Sex and Gender Information Value Date Recorded Sex Assigned at Not on file Legal Sex Female 7:54 PM CDT Gender Identity Not on file Sexual Orientation Not on file documented as of this encounter Progress Notes * Robinson Villarreal, LINH - 04/11/2022 3:44 PM CDT [facility] PROGRESS NOTE Criss Ly is a 71 y.o. female at [facility] for rehabilitation. Prior to coming to rehabilitation facility patient had been hospitalized for progressive weakness and frequent falls, workup showing stenosis of at a level of the cervical spine.. Subjective: Interval History: Patient reports she is feeling ???fine?? . Sitting comfortably in chair. Notes that her neck pain is a little bit worse today. No radiating pain. No mechanism injury. My exam is reassuring and discussed with patient that this is probably muscular related to her rehabilitation and should improve with time. NSAIDs contraindicated due to her CKD. She has no other concerns. Therapy has noted a significant improvement as of late. Past medical history: Type 2 diabetes mellitus Chronic kidney disease Diabetic peripheral neuropathy Hypertension Hyperlipidemia Review of Systems: A 14 point comprehensive review of systems was negative except what is documented in interval history above. Objective: Exam: Vital Signs: B/P: 132/74 Pulse: 78 Respirations: 18 Temperature: 97.4 General: Well developed, well nourished, in no [...] yet. Patient says that her PCP and hearing aid fitter have already given medical clearance to the surgeon. 03/28 - return to facility yesterday after having lumbar surgery. Being followed by neurosurgery . Nursing staff providing wound care to surgical site. P.r.n. pain medicines. Receiving therapy again. 04/08 - has virtual follow-up with surgeon on 04/10 Generalized weakness and deconditioning Receiving intermediate care and physical therapy rehabilitation 04/11 - [...] with Eliquis. This is her 1st DVT. [place] to be provoked due to recent falls. [...] system and there may be errors in gaming associate. Despite proof reading the note, there may be mistakes and I apologize for those. By: LINH Acosta, 04/11/2022 3:44 PM CDT documented in this encounter Plan of Treatment Not on file documented as of this encounter Visit Diagnoses Not on filedocumented in this encounter
--- OUTSIDE RECORDS SUMMARY | 2024-07-11 22:31 | XMS_ITS | Encounter Summary ---
Author Organization [facility] Address [address] [place] [address] Phone Care Team Providers Care Information Systems Architect Name Role Phone Unavailable Primary Care Provider Unavailabl e Encounter Details Date Type Department Care Team (Late st Contact Info) Description 02/26/2022 Nursing Facility [facility] [address] [place] [address] Robinson Villarreal, LINH [address] [place] [address] [phone] Social History Tobacco Use Types Packs/Day Years Used Date Smoking Tobacco: Never Assessed Comments Unknown Sex and Gender Information Value Date Recorded Sex Assigned at Not on file Legal Sex Female 7:54 PM CDT Gender Identity Not on file Sexual Orientation Not on file documented as of this encounter Progress Notes * Robinson Villarreal, LINH - 02/26/2022 1:30 PM CDT [facility] PROGRESS NOTE Criss Ly is a 71 y.o. female at [facility] for rehabilitation. Prior to coming to rehabilitation facility patient had been hospitalized for progressive weakness and frequent falls, workup showing stenosis of at a level of the cervical spine.. Subjective: Interval History: Patient denies any acute symptoms. Says that she is still feeling weak in her legs and that is affecting her therapy. She has her follow-up appointment with Neurosurgery today and she is nervous about that. Has no concerns otherwise. rns. Past medical history: Type 2 diabetes mellitus Chronic kidney disease Diabetic peripheral neuropathy Hypertension Hyperlipidemia Review of Systems: A 14 point comprehensive review of systems was negative except what is documented in interval history above. Objective: Exam: Vital Signs: B/P: 115/60 Pulse: 84 Respirations: 17 Temperature: 98 General: Well developed, well nourished, in no [...] None Assessment/Plan: Generalized weakness and deconditioning Receiving alf care and physical therapy rehabilitation 02/14 - [...] until GI symptoms resolve. 02/14 - improving 02/22 - recovered Chronic neck pain with stenosis of cervical spine This is felt to be the cause of her progressive weakness and frequent falls Has appointment with Neurosurgery on February 0502/07 - according to patient, neurosurgeon feels that this condition is non operable. Going to review her medical records and discuss further. Has neurosurgery follow-up on 02/26 Insulin-dependent diabetes mellitus Home regimen will be [...] with Eliquis. This is her 1st DVT. [place] to be provoked due to recent falls. Other chronic medical conditions include Chronic back pain, hyperlipidemia, GERD, osteoporosis, asthma Continue home regimen VTE Prophylaxis: On Eliquis for right lower extremity DVT I discussed advanced care planning with this patient. This note was dictated using M*Modal fluency dictation system and there may be errors in used car make ready worker. Despite proof reading the note, there may be mistakes and I apologize for those. By: LINH Acosta, 02/26/2022 1:31 PM CDT documented in this encounter Plan of Treatment Not on file documented as of this encounter Visit Diagnoses Not on filedocumented in this encounter
--- OUTSIDE RECORDS SUMMARY | 2024-07-11 22:31 | XMS_ITS | Encounter Summary ---
Author Organization [facility] Address [address] [place] [address] Phone Care Team Providers Care Recoating Machine Operator Name Role Phone Unavailable Primary Care Provider Unavailabl e Encounter Details Date Type Department Care Team (Late st Contact Info) Description 05/14/2022 Nursing Facility [facility] [address] [place] [address] Robinson Villarreal, PAC [address] [place] [address] [phone] Social History Tobacco Use Types Packs/Day Years Used Date Smoking Tobacco: Never Assessed Comments Unknown Sex and Gender Information Value Date Recorded Sex Assigned at Not on file Legal Sex Female 7:54 PM CDT Gender Identity Not on file Sexual Orientation Not on file documented as of this encounter Progress Notes * Robinson Villarreal, LINH - 05/14/2022 12:18 PM CDT [facility] PROGRESS NOTE Criss Ly is a 72 y.o. female at [facility]. Prior to coming to rehabilitation facility patient had been hospitalized for progressive weakness and frequent falls, workup showing stenosis of at a level of the cervical spine.. Subjective: Interval History: Patient feels like she is not improving with her therapy. Still having weakness in both legs. No other symptoms. She would like a COVID-19 booster. Did not get hers when they were being done at facility about 2 weeks ago for unclear reasons. So I will discussed nursing staff by getting a COVID-19 booster scheduled at local pharmacy. She is also in the process of discussing with nursing staff and pharmacy about getting her medications filled at local pharmacy because she believes that is going to be cheaper. Past medical history: Type 2 diabetes mellitus Chronic kidney disease Diabetic peripheral neuropathy Hypertension Hyperlipidemia Review of Systems: A 14 point comprehensive review of systems was negative except what is documented in interval history above. Objective: Exam: Vital Signs: B/P: 132/74 Pulse: 80 Respirations: 20 Temperature: 98 General: Well developed, well nourished, [...] Non-focal, CN intact, sensory and motor intact 05/10 - 4/5 strength in both lower extremities Psychological: alert and oriented X3, appropriate mood [...] 1.2, calcium 8.2, albumin 3.0 otherwise unremarkable. 05/13: CMP with glucose 239, albumin 3.1, protein 5.9, GFR 44 otherwise unremarkable. CBC with hemoglobin 9.4 otherwise unremarkable. Imaging: Chest x-ray on 03/05: CONCLUSION: No acute cardiopulmonary process. EKG on 03/05: FINDINGS: Normal sinus rhythm Normal ECG. Normal ECG. Intervals: PROCEDURE: VENOUS DOPPLER EXTREM/LOMAS STATUS: Final INTERPRETATION: Reason for Study: R60.0 LOCALIZED EDEMA Principal Result Internet Developer: WILFREDO REYNOLDS ([id number]) Net Trainer: ANA DELGADO (CJALAFF) Statistical Methods Professor Net Trainer: LE VENOUS DOPPLER EXTREM/LOMAS, RIGHT Comparison: 03/13/2022 See Note FINDINGS: Right Lower Extremity Venous Duplex Ultrasound: Real time imaging, compression, color andduplex Doppler ultrasound of the right common femoral vein to the popliteal vein trifurcations wereobtained. Noncompressible right popliteal trifurcation with thrombus; residual flow detected in theinvolved veins. Since there is possibility of proximal propagation of thrombus; treatment and follow-up suggested. Rest of visualized veins demonstrate no thrombosis. Results communicated to Nelly by technologist on 05/01/2022 at completion of exam. CONCLUSION: 1. Right calf deep vein thrombosis. ELECTRONICALLY SIGNED BY WILFREDO REYNOLDS D.O. 05/01/2022 1:45:54 PM CDT. Assessment/Plan: Chronic neck pain with stenosis of [...] yet. Patient says that her PCP and ergonomics consultant have already given medical clearance to the surgeon. 03/28 - return to facility yesterday after having lumbar surgery. Being followed by neurosurgery . Nursing staff providing wound care to surgical site. P.r.n. pain medicines. Receiving therapy again. 04/08 - has virtual follow-up with surgeon on 04/10 04/15 - improving 05/10 - worsening of her bilateral lower extremity weakness as of late. If persist then surgeon will likely order another MRI. Will check baseline labs on Friday to make sure that there is no other possible cause. 05/14 - no improvement Insulin-dependent diabetes mellitus Home regimen will be continued and includes high-dose scheduled NovoLog before each meal and Lantusin addition to glipizide Monitor Accu-Cheks and adjust regimen as necessary 05/03- blood sugars at acceptable levels overall other than occasional spikes Recurrent Right lower extremity DVT Diagnosed in 01/17. Found to have a nonocclusive thrombus in right mid superficial femoral vein. Being treated with Eliquis. This is her 1st DVT. [place] to be provoked due to recent falls. 03/13- Resolved - had repeat Doppler done on right lower extremity on 03/13 as part of her preoperative considerations and Doppler was negative for DVT. Anticoagulation has been discontinued. 05/03 - Doppler shows a recurrent DVT and right calf. Will start on Eliquis. Recommendation would be to be anticoagulated for a year before considering stopping. Congestive heart failure On Lasix No signs of acute Generalized weakness and deconditioning Receiving snf care and physical therapy rehabilitation 04/11 - significant improvement over the last 1 week 05/03 - has completed skilled portion of her therapy. Ultimately wants to go home but needs to muchassistance. May be able to return home in the future. Will be staying in the facility for now. Diabetic peripheral neuropathy Continue gabapentin Stable Chronic [...] assistance and notable to go home regardless. This note was dictated using M*Modal fluency dictation system and there may be errors in reference investigator. Despite proof reading the note, there may be mistakes and I apologize for those. By: LINH Acosta, 05/14/2022 12:19 PM CDT documented in this encounter Plan of Treatment Not on file documented as of this encounter Visit Diagnoses Not on filedocumented in this encounter
--- OUTSIDE RECORDS SUMMARY | 2024-07-11 22:31 | XMS_ITS | Encounter Summary ---
Author Organization [facility] Address [address] [place] [address] Phone Care Team Providers Care Presidential Helicopter Crew Chief Name Role Phone Unavailable Primary Care Provider Unavailabl e Encounter Details Date Type Department Care Team (Late st Contact Info) Description 02/04/2022 Nursing Facility [facility] [address] [place] [address] Robinson Villarreal, PAC [address] [place] [address] [phone] Social History Tobacco Use Types Packs/Day Years Used Date Smoking Tobacco: Never Assessed Comments Unknown Sex and Gender Information Value Date Recorded Sex Assigned at Not on file Legal Sex Female 7:54 PM CDT Gender Identity Not on file Sexual Orientation Not on file documented as of this encounter Progress Notes * Robinson Villarreal, LINH - 02/04/2022 3:42 PM CDT [facility] PROGRESS NOTE Criss Ly is a 71 y.o. female at [facility] for rehabilitation. Prior to coming to rehabilitation facility patient had been hospitalized for progressive weakness and frequent falls, workup showing stenosis of at a level of the cervical spine.. Subjective: Interval History: Patient reports she is feeling ???good?? . No acute symptoms or concerns. Has follow-up with Neurosurgery tomorrow. Feeling well otherwise. Past medical history: Type 2 diabetes mellitus Chronic kidney disease Diabetic peripheral neuropathy Hypertension Hyperlipidemia Review of Systems: A 14 point comprehensive review of systems was negative except what is documented in interval history above. Objective: Exam: Vital Signs: B/P: 115/60 Pulse: 80 Respirations: 18 Temperature: 97.6 General: [...] None Assessment/Plan: Generalized weakness and deconditioning Receiving penitentiary care and physical therapy rehabilitation Chronic neck [...] recommended that she continue to use that. Constipation Continue p.r.n. bowel regimen 01/28 - [...] with Eliquis. This is her 1st DVT. [place] to be provoked due to recent falls. Other chronic medical conditions include Chronic back pain, hyperlipidemia, GERD, osteoporosis, asthma Continue home regimen VTE Prophylaxis: On Eliquis for right lower extremity DVT I discussed advanced care planning with this patient. This note was dictated using [employer] fluency dictation system and there may be errors in adjudication specialist. Despite proof reading the note, there may be mistakes and I apologize for those. By: Robinson Villarreal, LINH, 02/04/2022 3:42 PM CDT documented in this encounter Plan of Treatment Not on file documented as of this encounter Visit Diagnoses Not on filedocumented in this encounter
--- OUTSIDE RECORDS SUMMARY | 2024-07-11 22:31 | XMS_ITS | Encounter Summary ---
Author Organization [facility] Address [address] [place] [address] Phone Care Team Providers Care Hyperbaric Welder Diver Name Role Phone Unavailable Primary Care Provider Unavailabl e Encounter Details Date Type Department Care Team (Late st Contact Info) Description 04/08/2022 Nursing Facility [facility] [address] [place] [address] Robinson Villarreal, PAC [address] [place] [address] [phone] Social History Tobacco Use Types Packs/Day Years Used Date Smoking Tobacco: Never Assessed Comments Unknown Sex and Gender Information Value Date Recorded Sex Assigned at Not on file Legal Sex Female 7:54 PM CDT Gender Identity Not on file Sexual Orientation Not on file documented as of this encounter Progress Notes * Robinson Villarreal, LINH - 04/08/2022 10:59 AM CDT [facility] PROGRESS NOTE Criss Ly is a 71 y.o. female at [facility] for rehabilitation. Prior to coming to rehabilitation facility patient had been hospitalized for progressive weakness and frequent falls, workup showing stenosis of at a level of the cervical spine.. Subjective: Interval History: Patient reports she is feeling ???okay?? . Laying comfortably in bed. Minimal pain currently but just had a pain pill few hours ago. Virtual follow-up with surgeon in 2 days No acute concerns. Nursing staff has no concerns with the patient. Past medical history: Type 2 diabetes mellitus Chronic kidney disease Diabetic peripheral neuropathy Hypertension Hyperlipidemia Review of Systems: A 14 point comprehensive review of systems was negative except what is documented in interval history above. Objective: Exam: Vital Signs: B/P: 132/74 Pulse: 72 Respirations: 20 Temperature: 96.9 General: Well developed, well nourished, in no distress Skin: Normal appearance, normal turgor, no rash [...] 2+ pitting edema in both lower extremities 04/08 - trace pitting edema in both lower [...] yet. Patient says that her PCP and curb setter helper have already given medical clearance to the surgeon. 03/28 - return to facility yesterday after having lumbar surgery. Being followed by neurosurgery . Nursing staff providing wound care to surgical site. P.r.n. pain medicines. Receiving therapy again. 04/08 - has virtual follow-up with surgeon on 04/10 Generalized weakness and deconditioning Receiving penitentiary care and physical therapy rehabilitation Insulin-dependent diabetes [...] with Eliquis. This is her 1st DVT. [place] to be provoked due to recent falls. [...] system and there may be errors in wall mirror department supervisor. Despite proof reading the note, there may be mistakes and I apologize for those. By: LINH Acosta, 04/08/2022 10:59 AM CDT documented in this encounter Plan of Treatment Not on file documented as of this encounter Visit Diagnoses Not on filedocumented in this encounter
--- OUTSIDE RECORDS SUMMARY | 2024-07-11 22:31 | XMS_ITS | Encounter Summary ---
Author Organization [facility] Address [address] [place] [address] Phone Care Team Providers Care Air Intelligence Specialist Name Role Phone Unavailable Primary Care Provider Unavailabl e Encounter Details Date Type Department Care Team (Late st Contact Info) Description 02/11/2022 Nursing Facility [facility] [address] [place] [address] Robinson Villarreal, LINH [address] [place] [address] [phone] Social History Tobacco Use Types Packs/Day Years Used Date Smoking Tobacco: Never Assessed Comments Unknown Sex and Gender Information Value Date Recorded Sex Assigned at Not on file Legal Sex Female 7:54 PM CDT Gender Identity Not on file Sexual Orientation Not on file documented as of this encounter Progress Notes * Robinson Villarreal, LINH - 02/11/2022 10:56 AM CDT [facility] PROGRESS NOTE Criss Ly is a 71 y.o. female at [facility] for rehabilitation. Prior to coming to rehabilitation facility patient had been hospitalized for progressive weakness and frequent falls, workup showing stenosis of at a level of the cervical spine.. Subjective: Interval History: Patient reports that she has developed some GI symptoms since last night. Has had a few episodes ofdiarrhea and vomiting. No abdominal pain. No fevers. No urinary symptoms. Is tolerating liquids well this morning. No other symptoms or concerns. Past medical history: Type 2 diabetes mellitus Chronic kidney disease Diabetic peripheral neuropathy Hypertension Hyperlipidemia Review of Systems: A 14 point comprehensive review of systems was negative except what is documented in interval history above. Objective: Exam: Vital Signs: B/P: 115/60 Pulse: 78 Respirations: 20 Temperature: 97.4 General: Well developed, well nourished, [...] None Assessment/Plan: Generalized weakness and deconditioning Receiving halfway care and physical therapy rehabilitation Acute COVID-19 infection 02/07 - diagnosed yesterday [...] and bland foods until GI symptoms resolve. Chronic neck pain with stenosis of cervical [...] with Eliquis. This is her 1st DVT. [place] to be provoked due to recent falls. Other chronic medical conditions include Chronic back pain, hyperlipidemia, GERD, osteoporosis, asthma Continue home regimen VTE Prophylaxis: On Eliquis for right lower extremity DVT I discussed advanced care planning with this patient. This note was dictated using M*[employer] fluency dictation system and there may be errors in land leasing examiner. Despite proof reading the note, there may be mistakes and I apologize for those. By: LINH Acosta, 02/11/2022 10:57 AM CDT documented in this encounter Plan of Treatment Not on file documented as of this encounter Visit Diagnoses Not on filedocumented in this encounter
--- OUTSIDE RECORDS SUMMARY | 2024-07-11 22:31 | XMS_ITS | Encounter Summary ---
Author Organization [facility] Address [address] [place] [address] Phone Care Team Providers Care Household Chores Name Role Phone Unavailable Primary Care Provider Unavailabl e Encounter Details Date Type Department Care Team (Late st Contact Info) Description 2022 Nursing Facility [facility] [address] [place] [address] Robinson Villarreal, PAC [address] [place], [place] [phone] Social History Tobacco Use Types Packs/Day Years Used Date Smoking Tobacco: Never Assessed Comments Unknown Sex and Gender Information Value Date Recorded Sex Assigned at Not on file Legal Sex Female 7:54 PM CDT Gender Identity Not on file Sexual Orientation Not on file documented as of this encounter Progress Notes * Robinson Villarreal, LINH - 2022 4:32 PM CDT [facility] PROGRESS NOTE Criss Ly is a 72 y.o. female at [facility] for rehabilitation. Prior to coming to rehabilitation facility patient had been hospitalized for progressive weakness and frequent falls, workup showing stenosis of at a level of the cervical spine.. Subjective: Interval History: Patient reports she is feeling ???good?? overall. Does note that she feels like she is having polyuria over the last few days. No pain with urination. Occasionally does not get to the bathroom in time. No abdominal pain or fevers or diarrhea or constipation. She is wondering if she is taking too much Lasix. Has not drinking back about her appeal. Nursing staff has no concerns. Past medical history: Type 2 diabetes mellitus Chronic kidney disease Diabetic peripheral neuropathy Hypertension Hyperlipidemia Review of Systems: A 14 point comprehensive review of systems was negative except what is documented in interval history above. Objective: Exam: Vital Signs: B/P: 132/74 Pulse: 78 Respirations: 16 Temperature: 97.7 General: Well developed, well nourished, in no [...] rhythm Normal ECG. Normal ECG. Intervals: Assessment/Plan: Congestive heart failure On Lasix No signs [...] and a urinalysis to rule out UTI. Chronic neck pain with stenosis of cervical [...] yet. Patient says that her PCP and dog obedience instructor have already given medical clearance to the surgeon. 03/28 - return to facility yesterday after having lumbar surgery. Being followed by neurosurgery . Nursing staff providing wound care to surgical site. P.r.n. pain medicines. Receiving therapy again. 04/08 - has virtual follow-up with surgeon on 04/10 04/15 - improving Generalized weakness and deconditioning Receiving nursing home care and physical therapy rehabilitation 04/11 [...] agents Hypertension Continue clonidine Monitor blood pressures Right lower extremity DVT Diagnosed in 01/17. Found to have a nonocclusive thrombus in right mid superficial femoral vein. Being treated with Eliquis. This is her 1st DVT. [place] to be provoked due to recent falls. [...] system and there may be errors in nurses aide. Despite proof reading the note, there may be mistakes and I apologize for those. By: LINH Acosta, 2022 4:32 PM CDT documented in this encounter Plan of Treatment Not on file documented as of this encounter Visit Diagnoses Not on filedocumented in this encounter
--- OUTSIDE RECORDS SUMMARY | 2024-07-11 22:31 | XMS_ITS | Encounter Summary ---
Author Organization [facility] Address [address] [place] [address] Phone Care Team Providers Care Flying Squad Salesperson Name Role Phone Unavailable Primary Care Provider Unavailabl e Encounter Details Date Type Department Care Team (Late st Contact Info) Description 05/10/2022 Nursing Facility [facility] [address] [place] [address] Robinson Villarreal, PAC [address] [place], [place] [phone] Social History Tobacco Use Types Packs/Day Years Used Date Smoking Tobacco: Never Assessed Comments Unknown Sex and Gender Information Value Date Recorded Sex Assigned at Not on file Legal Sex Female 7:54 PM CDT Gender Identity Not on file Sexual Orientation Not on file documented as of this encounter Progress Notes * Robinson Villarreal, LINH - 05/10/2022 4:29 PM CDT [facility] PROGRESS NOTE Criss Ly is a 72 y.o. female at [facility] for rehabilitation. Prior to coming to rehabilitation facility patient had been hospitalized for progressive weakness and frequent falls, workup showing stenosis of at a level of the cervical spine.. Subjective: Interval History: Therapy says the patient has declined as of late. Patient agrees and feels like both of her legs have been weak for about a week now. No new numbnessor tingling. No bowel or bladder symptoms. No systemic symptoms otherwise. She discussed with her surgeon 2 days ago who said that if symptoms persist then will order another MRI. No other concerns. Past medical history: Type 2 diabetes mellitus Chronic kidney disease Diabetic peripheral neuropathy Hypertension Hyperlipidemia Review of Systems: A 14 point comprehensive review of systems was negative except what is documented in interval history above. Objective: Exam: Vital Signs: B/P: 132/74 Pulse: 72 Respirations: 18 Temperature: 97.8 General: Well developed, [...] for Study: R60.0 LOCALIZED EDEMA Principal Result Supervisor Electron Tube Processing: WILFREDO REYNOLDS ([id number]) Receipt And Report Clerk: ANA DELGADO (CJALAFF) Business Control Manager Receipt And Report Clerk: KATHERIN VENOUS DOPPLER EXTREM/LOMAS, RIGHT Comparison: 03/13/2022 See [...] placed just before the surgery. According to thepatient Eliquis will need to be held 7 days prior to the surgery and for 2 weeks after. No surgicaldate yet. Patient says that her PCP and data developer have already given medical clearance to the [...] that there is no other possible cause. Recurrent Right lower extremity DVT Diagnosed in 01/17. Found to have a nonocclusive thrombus in right mid superficial femoral vein. Being treated with Eliquis. This is her 1st DVT. [place] to be provoked due to recent falls. [...] of acute Generalized weakness and deconditioning Receiving residential care and physical therapy rehabilitation 04/11 - significant improvement over the last 1 week 05/03 - has completed skilled portion of her therapy. Ultimately wants to go home but needs to muchassistance. May be able to return home in the future. Will be staying in the facility for now. Insulin-dependent diabetes mellitus Home regimen will be [...] system and there may be errors in machine steak tenderizer. Despite proof reading the note, there may be mistakes and I apologize for those. By: LINH Acosta, 05/10/2022 4:29 PM CDT documented in this encounter Plan of Treatment Not on file documented as of this encounter Visit Diagnoses Not on filedocumented in this encounter
--- OUTSIDE RECORDS SUMMARY | 2024-07-11 22:31 | XMS_ITS | Encounter Summary ---
Author Organization [facility] Address [address] [place] [address]. [place] [address] [place] [address] Care Team Providers Care Stock Taker Name Role Phone Lalito England MD Primary Care Provider [phone] Reason for Visit * Auth/Cert Specialty Diagnoses / Procedures Referred By Contac t Referred To Contact Diagnoses LUMBAR STENOSIS WITH CLAUDICATION, BILATERAL FOOT DROP M48.062, M21.371, M43.10 Procedures LUMBAR 4-5 LAMINECTOMY Robinson Block MD [address] [facility] [address] [place] [address] Phone: tel: fax: Referral ID Status Reason Start Date Expiration Date Visits Re quested Visits Authorized [id number] 1 1 Encounter Details Date Type Department Care Team (Late st Contact Info) Description 03/25/2022 2:34 PM CDT Anesthesia Event [facility] OR [place], [place] [id number] Kolby Vega MD [address] [facility] [address] [place] [address] Linn Acevedo, ENGINE LATHE SET UP OPERATOR [address] [place] [address] Anesthesia Record Procedure Summary Procedure Name Responsible Anesthesiologist Anesthesia Start Time Anesthesia Stop Time LUMBAR 4-5 LAMINECTOMY (Spine) Kolby Vega MD 03/25/22 1434 03/25/22 1751 Events Date Time Event Comment 03/25/2022 1246 AN STENOTYPE OPERATOR Prepped 1251 1251 AN Anesthesia Prepped 1434 An Start Patient ID and consent checked and patient reassessed. 1437 An Start Data 1439 Preoxygenation 1441 An Induction The patient was reevaluated immediately before moderate or deep sedation use and before anesthesia induction. 1443 An Intubation 1449 Anesthesia Ready 1729 An Emergence 1736 An Extubation 1747 Post Anesthetic Care Handoff I completed my handoff to the receiving nurse during which we: 1. Identified the patient 2. Identified the responsible provider 3. Reviewed the pertinent medical history 4. Discussed the surgical course 5. Reviewed intra-op anesthesia management and issues during anesthesia 6. Set expectations for post-procedure period 7. Allowed opportunity for questions and acknowledgement of understanding. 1747 an stop data 1751 An Stop Meds Name Total ceFAZolin (ANCEF) 2 g in NS 100 mL IVPB 2 g propofol (DIPRIVAN) 200 mg/20 mL injecti on 200 mg lidocaine (PF) 2% injection 100 mg rocuronium (ZEMURON) 50 mg/5 mL injectio n 50 mg fentaNYL (SUBLIMAZE) 100 mcg/2 mL inject ion 200 mcg methocarbamol (ROBAXIN) injection 1 g sugammadex (BRIDION) 200 mg/2 mL injecti on 200 mg lactated ringers infusion 800 mL * Agents Name O2 N2O Air Inspired Sevoflurane Sevoflurane * Blood No blood administrations on file. Lines, Drains, and Airways Type Details Placement Removal Peripheral IV Placement Date: 03/14 09/04; Placement Time: 1145; Placed Outside of This Facility?: No; Size: 20 G; Orientation: Left, Posterior; Location: Forearm; Site Prep: Chlorhexidine; Local Anesthetic: None; Inserted By: SEBASTIÁN Anaya; Insertion attempts: 3 (Candis LOWERY x2 Héctor x1); Ultrasound-guided Placement?: No; Patient Tolerance: Tolerated well; Removal Date: 03/26/22; Removal Time: 1446; Removal Reason: Patient Discharged 03/25/22 1145 by Candis Wilson RN 03/26/22 1446 by Francoise Pak RN ETT Placement Date: 03/14 09/04; Placement Time: 1444; Placed Outside of This Facility?:No; Mask Ventilate: Easy; Size (mm) : 7; Endotracheal: Oral, Stylet used; Blade Type: MAC 3; Placement Method: Direct Laryngoscopy (blade type in comment), Cricoid pressure; View Grade: 2; Viewable Anatomy: Epiglottis, Arytenoid, Vocal cords; Insertion Attempts: 2; Placement Verified By: Capnography, Auscultation, Chest Rise; Placed By: STENOTYPE OPERATOR; Extubation Assessment: Tolerated well, Suctioned, Patient spontaneously breathing; Removal Date: 03/25/22; Removal Time: 1735; Removal Person: STENOTYPE OPERATOR; Removal Reason: End of Case 03/25/22 1444 by Jese Denson CRNA 03/25/22 1736 by Thomas Hatch CRNA Surgical/Incision 03/25/22; 1724; Surg ical Wound; Back; DRESSING STERI STRIP 1/2 X 4 (x1); Island dressing; 03/26/22; 2338 03/25/22 1724 by Kaleigh Rosario RN 03/26/22 2338 by Automatic Discharge Provider documented in this encounter Social History Tobacco Use Types Packs/Day Years [...] R N Active documented in this encounter OR Notes * Anesthesia Postprocedure Evaluation - Emre Medellin CRNA - 03/26/2022 6:39 PM CDT Anesthesia Post-op Note Criss Ly Procedure(s): LUMBAR 4-5 LAMINECTOMY (N/A Spine) Anesthesia type: general Vitals: 03/26/22 1219 BP: 136/60 Vitals: 03/26/22 1219 Pulse: 90 Vitals: 03/26/22 1219 Resp: 18 Vitals: 03/26/22 1219 Temp: 36.8 ??C Vitals: 03/26/22 121 SpO2: 94% Patient Location: Inpatient Unit Level of Consciousness: awake, alert and oriented Pain Management: adequate analgesia Airway Patency: patent Respiratory Status: acceptable Cardiovascular Status: acceptable and stable Post-Op Nausea: none Postoperative Hydration: euvolemic Comments: Blood pressure 136/60, pulse 90, temperature 36.8 ??C, temperature source Oral, resp. rate 18, height 5' 6 (1.676 m), weight 104.3 kg (230 lb), SpO2 94 %. Patient suffered minor skin tearson each cheek from tape during surgery. Offered ointment to patient who stated she was being discharged and would have ointment available at her facility. Patient denied any other needs. Instructed patient to notify myself or nursing if she should change her mind prior to discharge. There were no known complications for this encounter. * Anesthesia Postprocedure Evaluation - Kolby Vega MD - 03/25/2022 7:03 PM CDT Anesthesia Post-op Note Criss Ly Procedure(s): LUMBAR 4-5 LAMINECTOMY (N/A Spine) Anesthesia type: general Vitals: 03/25/221814 BP: (!) 177/79 Vitals: 03/25/22 181 Pulse: 76 Vitals: 03/25/221814 Resp: 14 Vitals: 03/25/22 174 Temp: 36.7 ??C Vitals: 03/25/221814 SpO2: 100% Patient Location: PACU Level of Consciousness: awake and lethargic Pain Management: adequate analgesia Airway Patency: patent Respiratory Status: acceptable Cardiovascular Status: acceptable Post-Op Nausea: none Postoperative Hydration: euvolemic There were no known complications for this encounter. * Anesthesia Preprocedure Evaluation - Fernando Martin MD - 03/23/2022 8:28 AM CDT Anesthesia ROS/MED History Reviewed: Patient summary , Nursing notes , ECG, Family history anesthesia, Anesthesia history , Medications , Labs , Images/Studies , Unchecked boxes are not applicable Pre-Anesthetic State: alert, awake and responds appropriately history of anesthetic complications, (PONV) Pulmonary (+) asthma Cardiovascular (+) hypertension, Peripheral vascular disease (Hx of DVTs), hyperlipidemia Neuro/Psych Comments: Lumbar spinal stenosis GI/Hepatic/Renal neg GI/hepatic/renal ROS Endo/Other (+) diabetes mellitus, obese, arthritis, (OA) GENERAL COMMENTS Chart reviewed. Per phone interview, patient uses wheelchair 2/2 weakness in legs. Denies CP or extreme SOB. Pt is weaker 2/2 back problems. Per phone interview, patient denies having a travelers' aid worker.Pt had EKG within last 2 weeks at [facility]. ?? Addendum 03/21/22: EKG 03/05/22 Normal sinus rhythm, Normal ECG ?? Renal clearance per Dr. Paige. Pt cannot take NSAIDs before, during, and after surgery due to renal failure (CKD stage 3b) ?? Medical clearance per Robinson Villarreal PA-C -No need IVC filter -OK to hold Eliquis however long neurosurgery needs Past Medical History: No date: Asthma 12/2021: Blood clot in vein 01/2022: COVID-19 No date: Diabetes mellitus ([facility]) Comment: iddm 03/20/2022: HLD (hyperlipidemia) No date: Hypertension 03/20/2022: Lumbar stenosis No date: Wheelchair dependent Comment: will need transfer assistance Past Surgical History: No date: BACK SURGERY Comment: cervical discectomy, lumbar microdisc No date: BREAST SURGERY; Bilateral Comment: reduction No date: EYE SURGERY; Bilateral Comment: cataract No date: JOINT REPLACEMENT; Left Comment: left hip, bilateral knee Physical Evaluation Airway Mallampati: II TM Distance: >3 FB Neck ROM: normal Dental Pulmonary Breath sounds clear to auscultation (+) decreased breath sounds, (diminished bilaterally) Cardiovascular Rhythm: regular Rate: normal Cardiovascular exam normal Other findings: Height 4' 8 (1.422 m), weight 104.3 kg (230 lb). No results for input(s): WBC, RBC, HGB, HCT, PLT, NA, K, CL, CO2, AGAP, BUN, CR, BUNCREATININ, GFRNON, GFR, GLU, CA in the last 72 hours. Anesthesia Plan ASA 3 Intravenous Induction Anesthesia type: general Plan for Airway: ETT Plan for Post-op Pain Plan: IV analgesics, oral pain medication and as per surgeon Discussed potential risks of General Anesthesia including but not limited to corneal abrasion, visual impairment or visual loss, mouth injury, dental damage, sore throat, hoarseness, esophageal injury, awareness under anesthesia, nerve injury due to positioning, aspiration, pneumonia, stroke, cardiac event, adverse drug reactions and . Informed Consent Anesthetic plan and risks discussed with patient of whom consent was obtained. . documented in this encounter Plan of Treatment Not on file documented as of this encounter Visit Diagnoses Not on filedocumented in this encounter Administered Medications Inactive Administered Medications - up to 3 most recent administrations Medication Order MAR Action Action Date Dose Rate Site ceFAZolin (ANCEF) 2 g in NS 100 mL IVPB 2 g, Intravenous, at 200 mL/hr, de alcoholizer to O.R., 1 dose, First dose on Fri03/25/22 at 1100, Pre-OpIndications:Lumbar stenosis with neurogenic claudication,Bilateral foot-drop Given 03/25/2022 2:55 PM CDT 2 g fentaNYL (SUBLIMAZE) injection Intravenous, PRN, Starting on Fri03/25/22 at 1507, Until Fri03/25/22 at 1752, Anesthesia Intra-Op Given 03/25/2022 5:13 PM CDT 50 mcg Given 03/25/2022 4:12 PM CDT 50 mcg Given 03/25/2022 3:07 PM CDT 100 mcg lactated ringers infusion at 10 mL/hr, Intravenous, Continuous, Starting on Fri03/25/22 at 1100, Until Fri03/26/22 at 2338, Not to be given to patients with end stage renal disease or dialysis. Infuse at TKO rate, Pre-Op New Bag 03/25/2022 2:34 PM CDT lidocaine (PF) (XYLOCAINE) 2 % injection Intravenous, PRN, Starting on Fri03/25/22 at 1441, Until Fri03/25/22 at 1752, Anesthesia Intra-Op Given 03/25/2022 2:41 PM CDT 100 mg methocarbamol (ROBAXIN) injection Intravenous, PRN, Starting on Fri03/25/22 at 1710, Until Fri03/25/22 at 1752, Anesthesia Intra-Op Given 03/25/2022 5:10 PM CDT 1 g propofol (DIPRIVAN) IV bolus Intravenous, PRN, Starting on Fri03/25/22 at 1441, Until Fri03/25/22 at 1752, Anesthesia Intra-Op Given 03/25/2022 2:41 PM CDT 200 mg rocuronium (ZEMURON) injection Intravenous, PRN, Starting on Fri03/25/22 at 1441, Until Fri03/25/22 at 1752, Anesthesia Intra-Op Given 03/25/2022 2:41 PM CDT 50 mg sugammadex (BRIDION) injection Intravenous, PRN, Starting on Fri03/25/22 at 1713, Until Fri03/25/22 at 1752, Anesthesia Intra-Op Given 03/25/2022 5:13 PM CDT 200 mg documented in this encounter Care Teams Stock Taker Relationship Specialty Start Date End Date Lalito England MD [address] [place] [address] PCP - General INTERNAL MEDICINE 02/05/22 documented as of this encounter
--- OUTSIDE RECORDS SUMMARY | 2024-07-11 22:31 | XMS_ITS | Encounter Summary ---
Author Organization [facility] Address [address] [place] [address] Phone Care Team Providers Care Mold Filling Operator Name Role Phone Unavailable Primary Care Provider Unavailabl e Encounter Details Date Type Department Care Team (Late st Contact Info) Description 05/03/2022 Nursing Facility [facility] [address] [place] [address] Robinson Villarreal, PAC [address] [place], [place] [id number] Social History Tobacco Use Types Packs/Day Years Used Date Smoking Tobacco: Never Assessed Comments Unknown Sex and Gender Information Value Date Recorded Sex Assigned at Not on file Legal Sex Female 7:54 PM CDT Gender Identity Not on file Sexual Orientation Not on file documented as of this encounter Progress Notes * Robinson Villarreal, LINH - 05/03/2022 12:49 PM CDT [facility] PROGRESS NOTE Criss Ly is a 72 y.o. female at [facility] for rehabilitation. Prior to coming to rehabilitation facility patient had been hospitalized for progressive weakness and frequent falls, workup showing stenosis of at a level of the cervical spine.. Subjective: Interval History: I am seeing the patient acutely today for follow-up of abnormal imaging. Patient did voice that her right leg felt more swollen to me earlier this week although subjectively it was difficult to tell. Considering her history a Doppler is done to rule out DVT. Doppler completed and found to be positive for DVT in the deep calf veins. Patient is having quite a bit of pain in her left calf. None in her foot or ankle. No chest pain orshortness of breath. Denies any recent injury to this area. She had had a DVT in her right leg in January. This was her 1st DVT and was felt to be provoked. Was anticoagulated only for about 7 weeks before we discontinued after repeat ultrasound showed DVT was resolved, this was done as part of her preoperative testing/clearance. Past medical history: Type 2 diabetes mellitus Chronic kidney disease Diabetic peripheral neuropathy Hypertension Hyperlipidemia Review of Systems: A 14 point comprehensive review of systems was negative except what is documented in interval history above. Objective: Exam: Vital Signs: B/P: 132/74 Pulse: 72 Respirations: 20 Temperature: 97.4 General: Well developed, [...] for Study: R60.0 LOCALIZED EDEMA Principal Result Baby Attendant: WILFREDO REYNOLDS ([id number]) Contracts Intern: ANA DELGADO ([email or web address]) Electrical Discharge Machine Operator Contracts Intern: KATHERIN VENOUS DOPPLER EXTREM/LOMAS, RIGHT Comparison: 03/13/2022 [...] REYNOLDS D.O. 05/01/2022 1:45:54 PM CDT. Assessment/Plan: Recurrent Right lower extremity DVT Diagnosed in 01/17. Found to have a nonocclusive thrombus in right mid superficial femoral vein. Being treated with Eliquis. This is her 1st DVT. [place] to be provoked due to recent falls. [...] failure On Lasix No signs of acute Chronic neck pain with stenosis of cervical [...] yet. Patient says that her PCP and drop clipper have already given medical clearance to the surgeon. 03/28 - return to facility yesterday after having lumbar surgery. Being followed by neurosurgery . Nursing staff providing wound care to surgical site. P.r.n. pain medicines. Receiving therapy again. 04/08 - has virtual follow-up with surgeon on 04/10 04/15 - improving Generalized weakness and deconditioning Receiving custodial care and physical therapy rehabilitation 04/11 - [...] system and there may be errors in data processing auditor. Despite proof reading the note, there may be mistakes and I apologize for those. By: LINH Acosta, 05/03/2022 12:50 PM CDT documented in this encounter Plan of Treatment Not on file documented as of this encounter Visit Diagnoses Not on filedocumented in this encounter
--- OUTSIDE RECORDS SUMMARY | 2024-07-11 22:31 | XMS_ITS | Encounter Summary ---
Author Organization [facility] Address [address] [place] [address] Phone Care Team Providers Care Automatic Chief Name Role Phone Unavailable Primary Care Provider Unavailabl e Encounter Details Date Type Department Care Team (Late st Contact Info) Description 01/28/2022 Nursing Facility [facility] [address] [place] [address] Robinson Villarreal, PAC [address] [place] [id number] Social History Tobacco Use Types Packs/Day Years Used Date Smoking Tobacco: Never Assessed Comments Unknown Sex and Gender Information Value Date Recorded Sex Assigned at Not on file Legal Sex Female 7:54 PM CDT Gender Identity Not on file Sexual Orientation Not on file documented as of this encounter Progress Notes * Robinson Villarreal, LINH - 01/28/2022 1:21 PM CDT [facility] PROGRESS NOTE Criss Ly is a 71 y.o. female at [facility] for rehabilitation. Prior to coming to rehabilitation facility patient had been hospitalized for progressive weakness and frequent falls, workup showing stenosis of at a level of the cervical spine.. Subjective: Interval History: Patient reports she is feeling ???okay?? . Says she did not sleep well last night. Mainly due to her room a keeping the TV on all night. Also complaining of constipation. Last bowel movement was 5 days ago. No abdominal pain. No nausea or vomiting. No acute symptoms or concerns otherwise. Past medical history: Type 2 diabetes mellitus Chronic kidney disease Diabetic peripheral neuropathy Hypertension Hyperlipidemia Review of Systems: A 14 point comprehensive review of systems was negative except what is documented in interval history above. Objective: Exam: Vital Signs: B/P: 122/68 Pulse: 78 Respirations: 18 Temperature: 98.1 General: Well developed, [...] None Assessment/Plan: Generalized weakness and deconditioning Receiving usp care and physical therapy rehabilitation Chronic neck [...] Stable Diabetic peripheral neuropathy Continue gabapentin Stable Wounds on left foot 01/28 - appear to be well healing. No signs of infection or deep space involvement. She has been using mupirocin twice daily that was prescribed by her PCP and recommended that she continue to use that. Constipation Continue p.r.n. bowel regimen 01/28 - uncontrolled. Will add on Colace every other day. Trouble sleeping Mainly circumstantial with roommate leaving [...] this patient. This note was dictated using [employer] fluency dictation system and there may be errors in seam feller. Despite proof reading the note, there may be mistakes and I apologize for those. By: LINH Acosta, 01/28/2022 1:21 PM CDT documented in this encounter Plan of Treatment Not on file documented as of this encounter Visit Diagnoses Not on filedocumented in this encounter
--- OUTSIDE RECORDS SUMMARY | 2024-07-11 22:31 | XMS_ITS | Encounter Summary ---
Author Organization [facility] Address [address] [place] [address] Phone Care Team Providers Care Supervisor Belt And Link Assembly Name Role Phone Unavailable Primary Care Provider Unavailabl e Encounter Details Date Type Department Care Team (Late st Contact Info) Description 03/05/2022 Nursing Facility [facility] [address] [place] [address] Robinson Villarreal, PAC [address] [place], [place] [id number] Social History Tobacco Use Types Packs/Day Years Used Date Smoking Tobacco: Never Assessed Comments Unknown Sex and Gender Information Value Date Recorded Sex Assigned at Not on file Legal Sex Female 7:54 PM CDT Gender Identity Not on file Sexual Orientation Not on file documented as of this encounter Progress Notes * Robinson Villarreal, LINH - 03/05/2022 12:02 PM CDT PSYCHIATRIC PROGRESS NOTE Criss Ly is a 71 y.o. female at [facility] for rehabilitation. Prior to coming to rehabilitation facility patient had been hospitalized for progressive weakness and frequent falls, workup showing stenosis of at a level of the cervical spine.. Subjective: Interval History: Was seen by her pain management in his office yesterday. Recommended increasing frequency of [place] from 8 hours p.r.n. to 6 hours p.r.n. so I will make this change in her chart. Says that her neurosurgeon is planning on lumbar surgery. Not scheduled yet. Her PCP and safety lamp keeper have already given medical clearance so she believes that I will not need to provide medical clearance. Note date for surgery set yet. She believes Eliquis will need to be held for 7 days prior to the procedure and for 14 days afterwards. Because of this IVC filter planning on being placed just pr ior to the surgery. Past medical history: Type 2 diabetes mellitus Chronic kidney disease Diabetic peripheral neuropathy Hypertension Hyperlipidemia Review of Systems: A 14 point comprehensive review of systems was negative except what is documented in interval history above. Objective: Exam: Vital Signs: B/P: 115/60 Pulse: 88 Respirations: 16 Temperature: 98.2 General: Well developed, well nourished, in no [...] CBC with hemoglobin 11.3 otherwise unremarkable. Imaging: Chest x-ray on 03/05: CONCLUSION: No acute cardiopulmonary process. EKG on 03/05: FINDINGS: Normal sinus rhythm Normal ECG. Normal ECG. Intervals: Assessment/Plan: Generalized weakness and deconditioning Receiving shelter care and physical therapy rehabilitation 02/14 - [...] yet. Patient says that her PCP and safety lamp keeper have already given medical clearance to the surgeon. Insulin-dependent diabetes mellitus Home regimen will be [...] with Eliquis. This is her 1st DVT. [place] to be provoked due to recent falls. Other chronic medical conditions include Chronic back pain, hyperlipidemia, GERD, osteoporosis, asthma Continue home regimen VTE Prophylaxis: On Eliquis for right lower extremity DVT I discussed advanced care planning with this patient. This note was dictated using [employer] fluency dictation system and there may be errors in knuckle strap sewer. Despite proof reading the note, there may be mistakes and I apologize for those. By: LINH Acosta, 03/05/2022 12:03 PM CDT documented in this encounter Plan of Treatment Not on file documented as of this encounter Visit Diagnoses Not on filedocumented in this encounter
--- OUTSIDE RECORDS SUMMARY | 2024-07-11 22:31 | XMS_ITS | Encounter Summary ---
Author Organization [facility] Address [address] [place] [address] Phone Care Team Providers Care Varnisher Name Role Phone Unavailable Primary Care Provider Unavailabl e Encounter Details Date Type Department Care Team (Late st Contact Info) Description 04/15/2022 Nursing Facility [facility] [address] [place] [address] Robinson Villarreal, PAC [address] [place] [id number] Social History Tobacco Use Types Packs/Day Years Used Date Smoking Tobacco: Never Assessed Comments Unknown Sex and Gender Information Value Date Recorded Sex Assigned at Not on file Legal Sex Female 7:54 PM CDT Gender Identity Not on file Sexual Orientation Not on file documented as of this encounter Progress Notes * Robinson Villarreal, LINH - 04/15/2022 2:27 PM CDT [facility] PROGRESS NOTE Criss Ly is a 71 y.o. female at [facility] for rehabilitation. Prior to coming to rehabilitation facility patient had been hospitalized for progressive weakness and frequent falls, workup showing stenosis of at a level of the cervical spine.. Subjective: Interval History: Patient reports she is feeling ???pretty good?? . Resting comfortably in bed. Says she has no acute concerns. Pain is well controlled. Feels like therapy is going well. Past medical history: Type 2 diabetes mellitus Chronic kidney disease Diabetic peripheral neuropathy Hypertension Hyperlipidemia Review of Systems: A 14 point comprehensive review of systems was negative except what is documented in interval history above. Objective: Exam: Vital Signs: B/P: 132/74 Pulse: 76 Respirations: 16 Temperature: 97.6 General: Well developed, well nourished, [...] yet. Patient says that her PCP and supervisor nurse have already given medical clearance to the surgeon. 03/28 - return to facility yesterday after having lumbar surgery. Being followed by neurosurgery . Nursing staff providing wound care to surgical site. P.r.n. pain medicines. Receiving therapy again. 04/08 - has virtual follow-up with surgeon on 04/10 04/15 - improving Generalized weakness and deconditioning Receiving senior living care and physical therapy rehabilitation 04/11 - [...] with Eliquis. This is her 1st DVT. [place] to be provoked due to recent falls. [...] system and there may be errors in marine service manager. Despite proof reading the note, there may be mistakes and I apologize for those. By: LINH Acosta, 04/15/2022 2:27 PM CDT documented in this encounter Plan of Treatment Not on file documented as of this encounter Visit Diagnoses Not on filedocumented in this encounter
--- OUTSIDE RECORDS SUMMARY | 2024-07-11 22:31 | XMS_ITS | Encounter Summary ---
Author Organization [facility] Address [address] [place] [address] Phone Care Team Providers Care Caustic Room Attendant Name Role Phone Unavailable Primary Care Provider Unavailabl e Encounter Details Date Type Department Care Team (Late st Contact Info) Description 01/31/2022 Nursing Facility [facility] [address] [place] [address] Robinson Villarreal, PAC [address] [place] [id number] Social History Tobacco Use Types Packs/Day Years Used Date Smoking Tobacco: Never Assessed Comments Unknown Sex and Gender Information Value Date Recorded Sex Assigned at Not on file Legal Sex Female 7:54 PM CDT Gender Identity Not on file Sexual Orientation Not on file documented as of this encounter Progress Notes * Robinson Villarreal, LINH - 01/31/2022 5:04 PM CDT [facility] PROGRESS NOTE Criss Ly is a 71 y.o. female at [facility] for rehabilitation. Prior to coming to rehabilitation facility patient had been hospitalized for progressive weakness and frequent falls, workup showing stenosis of at a level of the cervical spine.. Subjective: Interval History: Patient reports she is feeling ???fine?? . Having continued pain but is tolerable. Constipation has resolved. No other symptoms or concerns. Past medical history: Type 2 diabetes mellitus Chronic kidney disease Diabetic peripheral neuropathy Hypertension Hyperlipidemia Review of Systems: A 14 point comprehensive review of systems was negative except what is documented in interval history above. Objective: Exam: Vital Signs: B/P: 122/68 Pulse: 86 Respirations: 17 Temperature: 97.4 General: Well developed, well nourished, in no distress Skin: Normal appearance, normal turgor, 718 - on left lateral malleolus there is [...] None Assessment/Plan: Generalized weakness and deconditioning Receiving nursing home care and physical therapy rehabilitation Chronic neck [...] system and there may be errors in vb net developer. Despite proof reading the note, there may be mistakes and I apologize for those. By: LINH Acosta, 01/31/2022 5:04 PM CDT documented in this encounter Plan of Treatment Not on file documented as of this encounter Visit Diagnoses Not on filedocumented in this encounter
--- OUTSIDE RECORDS SUMMARY | 2024-07-11 22:31 | XMS_ITS | Encounter Summary ---
Author Organization [facility] Address [address] [place] [address]. [place] [address] [place] [address] Care Team Providers Care Historic Sites Supervisor Name Role Phone Lalito England MD Primary Care Provider [phone] Encounter Details Date Type Department Care Team (Late st Contact Info) Description 02/05/2022 4:30 PM CDT - 02/05/2022 11:59 PM CDT Hospital Encounter [facility] [place] [address] Robinson Ceballos MD [address] [facility] [address] [place], [place] [id number] Discharge Disposition: Home or Self Care (Routine Discharge) Social History Tobacco Use Types Packs/Day Years [...] PM CDT documented as of this encounter Medications at Time of Discharge alendronate (FOSAMAX) 70 MG tablet Take 1 tablet by mouth once a week. Takes on Friday01/18/2022 cloNIDine (CATAPRES) 0.1 MG tablet Take 0.5 tablets by mouth 2 (two) times daily. 12/19/2021 fluticasone propionate (FLONASE) 50 MCG/ACT nasal spray 2 sprays by Nasal route daily. 01/07/2022 furosemide (LASIX) 20 MG tablet Take 1 tablet by mouth daily. 02/05/2022 HYDROcodone-aceta minophen (NORCO) 5-325 MG tablet Take 1 tablet by mouth 3 (three) times daily as needed. 12/28/2021 insulin aspart (NOVOLOG FLEXPEN) 100 UNIT/ML injection (PEN) INJECT 32 UNITS UNDER THE SKIN 3 (THREE) TIMES A DAY BEFORE MEALS 09/11/2021 insulin glargine (LANTUS SOLOSTAR) 100 UNIT/ML injection (PEN) 48 Units nightly. 48 units at night 01/04/2022 montelukast (SINGULAIR) 10 MG tablet Take 1 tablet by mouth nightly at bedtime. 02/05/2022 naloxone (NARCAN) 4 MG/0.1ML nasal spray 1 spray by Nasal route. 12/28/2021 simvastatin (ZOCOR) 40 MG tablet Take 1 tablet by mouth nightly. 08/23/2021 glipiZIDE (GLUCOTROL) 5 MG tablet Take 2.5 mg by mouth daily. 07/05/2021 03/25/2022 pantoprazole EC (PROTONIX) 40 MG tablet Take 1 tablet by mouth 2 (two) times daily. 12/05/2021 03/25/2022 documented as of this encounter Plan of Treatment Not on file documented as of this encounter Procedures Procedure Name Priority Date/Time Associated Diagnosis Comments XR LUMB SP+FLEX+EXT MIN 4V Routine 02/05/2022 5:09 PM CDT Spondylolisthesis documented in this encounter Results * XR LUMB SP+FLEX+EXT MIN 4V (02/05/2022 5:09 PM CDT) Anatomical Region Laterality Modality Spine Radiographic Pamela ging 02/06/2022 7:37 AM CDT Impressions 02/06/2022 7:51 AM CDT IMPRESSION: Moderate to severe degenerative changes as discussed above. Spinal curvature and grade 1 listhesis as discussed above. If radicular symptoms, consider MRI for evaluation. Ordered By: ROBINSON CEBALLOS Interpreted By: Gaurav Conrad, 02/06/2022 7:37 AM Narrative 02/06/2022 7:51 AM CDT IMAGING STUDIES: XR LUMB SP+FLEX+EXT MIN 4V ? DATE: ??02/05/2022 4:36 PM HISTORY: ??Spondylolisthesis ?71-year-old female is reportedly unable to walk without assistance due to extreme back pain since 2008. Currently uses a wheelchair and only able to stand for a short amount of time. Numbness and tingling in both legs. COMPARISON: ??None DISCUSSION: Technologist reports the patient was unsteady on her feet and study was performed with additional assistance. Standing AP, neutral lateral, and coned lateral view at the lumbosacral spine. Flexion and extension lateral views were obtained with the patient laying on the imaging table on her right side as she was unable to cooperate for standing views. Five lumbar vertebral bodies. Rightward curvature of approximately 10 degrees lumbar spine with apex at L3-4 level. Grade 1 anterior listhesis of L4 relative to L3 of approximately 4 mm which is stable in flexion but reduces in extension. Grade 1 anterior listhesis of L4 relative to L5 of approximately 3 mm in extension but not evident on flexion or neutral positioning. Bulky bridging right osteophytes at T10-11, T11-12, and L1/L2 levels. Large bilateral osteophytes at L to 3 level and greater along the left side at L3-4 and L4-5 levels. Degenerative disc disease at all visualized thoracic and lumbar levels. Minimal remaining disc space with vacuum discs at L3-4 and L4-5 levels. Disc space narrowing with endplate degenerative changes and vacuum disc at L2-3 level. Disc space narrowing with endplate hypertrophic changes at L5-S1. Diffuse facet degenerative changes but most prominent in the mid lumbar spine to upper sacrum. Degenerative changes of the sacroiliac joints and symphysis pubis. Left hip arthroplasty. Atherosclerotic calcification in the aorta and iliac arteries. Procedure Note Gaurav Conrad MD - 02/06/2022 IMAGING STUDIES: XR LUMB SP+FLEX+EXT MIN 4VDATE: 02/05/2022 4:36 PM HISTORY: Spondylolisthesis 71-year-old female is reportedly unable towalk without assistance due to extreme back pain since 2008. Currentlyuses a wheelchair and only able to stand for a short amount of time.Numbness and tingling in both legs. COMPARISON: None DISCUSSION: Technologist reports the patient was unsteady on her feet and study wasperformed with additional assistance. Standing AP, neutral lateral, and coned lateral view at the lumbosacralspine. Flexion and extension lateral views were obtained with the patientlaying on the imaging table on her right side as she was unable tocooperate for standing views. Five lumbar vertebral bodies. Rightward curvature of approximately 10 degrees lumbar spine with apex atL3-4 level. Grade 1 anterior listhesis of L4 relative to L3 of approximately 4 mmwhich is stable in flexion but reduces in extension. Grade 1 anterior listhesis of L4 relative to L5 of approximately 3 mm inextension but not evident on flexion or neutral positioning. Bulky bridging right osteophytes at T10-11, T11-12, and L1/L2 levels.Large bilateral osteophytes at L to 3 level and greater along the leftside at L3-4 and L4-5 levels. Degenerative disc disease at all visualized thoracic and lumbar levels.Minimal remaining disc space with vacuum discs at L3-4 and L4-5 levels.Disc space narrowing with endplate degenerative changes and vacuum disc atL2-3 level. Disc space narrowing with endplate hypertrophic changes atL5-S1. Diffuse facet degenerative changes but most prominent in the mid lumbarspine to upper sacrum. Degenerative changes of the sacroiliac joints and symphysis pubis. Lefthip arthroplasty. Atherosclerotic calcification in the aorta and iliac arteries. IMPRESSION: Moderate to severe degenerative changes as discussed above.Spinal curvature and grade 1 listhesis as discussed above. If radicularsymptoms, consider MRI for evaluation. Ordered By: ROBINSON CEBALLOS Interpreted By: Gaurav Conrad, 02/06/2022 7:37 AM us Robinson Ceballos MD GENERAL IMAGING Final Result documented in this encounter Visit Diagnoses Diagnosis Spondylolisthesis Congenital spondylolisthesis documented in this encounter Care Teams Historic Sites Supervisor Relationship Specialty Start Date End Date Lalito England MD [address] [place] [address] PCP - General INTERNAL MEDICINE 02/05/22 documented as of this encounter
--- OUTSIDE RECORDS SUMMARY | 2024-07-11 22:31 | XMS_ITS | Encounter Summary ---
Author Organization [facility] Address [address] [place] [address] Phone Care Team Providers Care Astrochemist Name Role Phone Unavailable Primary Care Provider Unavailabl e Encounter Details Date Type Department Care Team (Late st Contact Info) Description 02/07/2022 Nursing Facility [facility] [address] [place] [address] Robinson Villarreal, PAC [address] [place] [address] [id number] Social History Tobacco Use Types Packs/Day Years Used Date Smoking Tobacco: Never Assessed Comments Unknown Sex and Gender Information Value Date Recorded Sex Assigned at Not on file Legal Sex Female 7:54 PM CDT Gender Identity Not on file Sexual Orientation Not on file documented as of this encounter Progress Notes * Robinson Villarreal, LINH - 02/07/2022 3:01 PM CDT [facility] PROGRESS NOTE Criss Ly is a 71 y.o. female at [facility] for rehabilitation. Prior to coming to rehabilitation facility patient had been hospitalized for progressive weakness and frequent falls, workup showing stenosis of at a level of the cervical spine.. Subjective: Interval History: Tested positive for COVID-19 yesterday. Says she is feeling fatigued, has sore throat, a cough and a frontal headache. Saw her surgeon yesterday for consultation and she is upset because her spinal condition is likely non operable. No other symptoms. Past medical history: Type 2 diabetes mellitus Chronic kidney disease Diabetic peripheral neuropathy Hypertension Hyperlipidemia Review of Systems: A 14 point comprehensive review of systems was negative except what is documented in interval history above. Objective: Exam: Vital Signs: B/P: 115/60 Pulse: 84 Respirations: 17 Temperature: 97.5 General: Well developed, well nourished, in no [...] None Assessment/Plan: Generalized weakness and deconditioning Receiving intermediate care and physical therapy rehabilitation Acute COVID-19 infection 02/07 - diagnosed yesterday which is when symptoms began. Her GFR is 30. She would rather not do thepaxlovid because of concerns about her kidney function and is requesting the bebtelovimab which I am ordering now. P.r.n. throat lozenges and Tessalon ordered. Chronic neck pain with stenosis of cervical [...] with Eliquis. This is her 1st DVT. [place] to be provoked due to recent falls. Other chronic medical conditions include Chronic back pain, hyperlipidemia, GERD, osteoporosis, asthma Continue home regimen VTE Prophylaxis: On Eliquis for right lower extremity DVT I discussed advanced care planning with this patient. This note was dictated using M*Modal fluency dictation system and there may be errors in rfid specialist. Despite proof reading the note, there may be mistakes and I apologize for those. By: LINH Acosta, 02/07/2022 3:02 PM CDT documented in this encounter Plan of Treatment Not on file documented as of this encounter Visit Diagnoses Not on filedocumented in this encounter
--- OUTSIDE RECORDS SUMMARY | 2024-07-11 22:31 | XMS_ITS | Encounter Summary ---
Author Organization [facility] Address [address] [place] [address] Phone Care Team Providers Care Oil Change Technician Name Role Phone Unavailable Primary Care Provider Unavailabl e Encounter Details Date Type Department Care Team (Late st Contact Info) Description 07/04/2022 Nursing Facility [facility] [address] [place] [address] Robinson Villarreal PAC [address] [place], [place] [id number] Social History Tobacco Use Types Packs/Day Years Used Date Smoking Tobacco: Never Assessed Comments Unknown Sex and Gender Information Value Date Recorded Sex Assigned at Not on file Legal Sex Female 7:54 PM CDT Gender Identity Not on file Sexual Orientation Not on file documented as of this encounter Progress Notes * Robinson Villarreal PAC - 07/04/2022 11:40 AM CST [facility] DISCHARGE SUMMARY Name: Criss Ly Age: 72 y.o. : 1950 Attending Physician: No att. providers found Admission Date/Time: 01/21/2022 Expected Discharge Date: 07/05/2022 Primary Care Physician: No primary care provider on file. Discharging Provider: LINH Acosta INSTRUCTIONS FOR PHYSICIANS ON FOLLOW UP AFTER DISCHARGE: Follow-up with PCP in 1-2 weeks Discharge Instructions: Discharge Condition: improved Disposition: Assisted Living Facility Diet: Cardiac Diet, Diabetic Diet and Renal Diet Activity: activity as tolerated Discharge Diagnoses: Chronic neck pain, cervical and lumbar spinal stenosis, insulin-dependent diabetes mellitus, chronic kidney disease stage 4, chronic systolic congestive heart failure, generalized weakness and deconditioning, recurrent, right lower extremity DVT, hypertension, diabetic peripheral nephropathy, Chronic back pain, hyperlipidemia, GERD, osteoporosis, asthma Admitting Diagnoses: Chronic neck pain, cervical and lumbar spinal stenosis, insulin-dependent diabetes mellitus, chronic kidney disease stage 4, chronic systolic congestive heart failure, generalized weakness and deconditioning, right lower extremity DVT, hypertension, diabetic peripheral nephropathy, Chronic back pain, hyperlipidemia, GERD, osteoporosis, asthma SKILLED CARE COURSE: Criss Ly was admitted to nursing home facility for acute care rehabilitation.Prior to comingto rehabilitation facility patient had been hospitalized for progressive weakness and frequent falls, workup showingspinal stenosis Her stay in the rehabilitation facility was fairly long and had a few complications. Patient received nursing home care and physical therapy rehabilitation during the initial part of her stay. However unfortunately she did not make the improvements that the therapy team or the patient had hoped for. Patient's lower extremity weakness actually seemed to be getting worse. She thendeveloped an acute COVID-19 infection at the end of January. Overall patient's symptoms were mild, shedid receive a monoclonal antibody infusion and the rest of her symptoms were treated supportively and have resolved over time. However this infection seemed to make her weakness even worse. Patient established care with a neurosurgeon Dr. Block who after doing more MRIs felt the patient would benefit from lumbar surgery and patient subsequently underwent lumbar surgery in early March. After completion of her surgery she began therapy again and has noticed some improvement although she still has quite a bit weakness in both lower extremities. Ultimately she was hopeful to go back home but this will not be realistic any time soon. She has been accepted at [facility] and will be moving there tomorrow as long his the weather permits. Should be noted that patient was diagnosed with a right lower extremity DVT during her initial hospitalization. As part of her pre-surgical workup she had a repeat Doppler done of right lower extremity which showed the DVT had resolved so the anticoagulation was discontinued just prior to the surgery. About 6 weeks after the surgery she developed some edema in her right lower extremity and another Dopplers done which showed the patient had developed a recurrent right lower extremity DVT. She has been anticoagulated on Eliquis since then which I recommended that she be on for least 1 year. Herright lower extremity edema quickly resolved after starting the Eliquis. Today she says she feels ???good?? . Denies any acute symptoms or concerns. She is excited to be going to [facility] tomorrow. She is hopeful to the CO the we are supposed to get this evening does not delay anything. She recently saw her neurosurgeon again who after doing more imaging felt that no more surgical intervention was necessary and stressed the importance of continued strengthening and is hopeful the patient will continue to regain her strength over the next several months. Exam Day of Discharge: Vital Signs: B/P: 132/74 Pulse: 76 Respirations: 17 Temperature: 98.2 General: Well developed, well nourished, [...] joint mobility appears intact, no clubbing - trace pitting edema in both lower extremities Neuro: Non-focal, CN intact, sensory and motor intact - 4/5 strength in both lower extremities Psychological: alert and oriented X3, appropriate mood and affect, Intact judgement and memory Lab / Imaging Review: Lab Results: On 01/16/2021 hospital, CBC with [...] for Study: R60.0 LOCALIZED EDEMA Principal Result Cylinder Steamer: WILFREDO REYNOLDS ([id number]) Washer Hand: ANA DELGADO (CJALAFF) Lawn Mower Operator Washer Hand: KATHERIN VENOUS DOPPLER EXTREM/LOMAS, RIGHT Comparison: 03/13/2022 [...] WILFREDO REYNOLDS D.O. 05/01/2022 1:45:54 PM CDT. DISCHARGE PLAN: Patient will be discharging to [facility] tomorrow as long as weather permits. Understands to continue all current medications as directed and follow up with PCP in 1-2 weeks. Understands to keep her follow-up appointment with her neurosurgeon. Wheelchair has been ordered for her to have at the assisted living facility. She has all her diabetes testing supplies. Patient is comfortable and excited with this plan. I have spent time coordinating care for this nursing home facility discharge: Greater than 30 minutes spent in coordinating care This note was dictated using M*Modal fluency dictation system and there may be errors in cartridge maker. Despite proof reading the note, there may be mistakes and I apologize for those. Signed: LINH Acosta, 07/04/2022, 11:41 AM VASC TECH TECH documented in this encounter Plan of Treatment Not on file documented as of this encounter Visit Diagnoses Not on filedocumented in this encounter
--- OUTSIDE RECORDS SUMMARY | 2024-07-11 22:31 | XMS_ITS | Encounter Summary ---
Author Organization [facility] Address [address] [place] [address] Phone Care Team Providers Care Shoe Planner Name Role Phone Unavailable Primary Care Provider Unavailabl e Encounter Details Date Type Department Care Team (Late st Contact Info) Description 02/22/2022 Nursing Facility [facility] [address] [place] [address] Robinson Villarreal, LINH [address] [place] [address] [id number] Social History Tobacco Use Types Packs/Day Years Used Date Smoking Tobacco: Never Assessed Comments Unknown Sex and Gender Information Value Date Recorded Sex Assigned at Not on file Legal Sex Female 7:54 PM CDT Gender Identity Not on file Sexual Orientation Not on file documented as of this encounter Progress Notes * Robinson Villarreal, LINH - 02/22/2022 1:45 PM CDT [facility] PROGRESS NOTE Criss Ly is a 71 y.o. female at [facility] for rehabilitation. Prior to coming to rehabilitation facility patient had been hospitalized for progressive weakness and frequent falls, workup showing stenosis of at a level of the cervical spine.. Subjective: Interval History: Patient reports that that she is ???hurting?? today. Having pain in her neck and her back, she thinks that her current wheelchair is exacerbating her chronic pain, she is also due for pain medicine at this time. She otherwise denies any respiratory or GI symptoms. Has follow-up with Neurosurgery next week. No other concerns. Past medical history: Type 2 diabetes mellitus Chronic kidney disease Diabetic peripheral neuropathy Hypertension Hyperlipidemia Review of Systems: A 14 point comprehensive review of systems was negative except what is documented in interval history above. Objective: Exam: Vital Signs: B/P: 115/60 Pulse: 76 Respirations: 16 Temperature: 97.5 General: Well developed, well nourished, [...] None Assessment/Plan: Generalized weakness and deconditioning Receiving custodial care and physical therapy rehabilitation 02/14 - [...] with Eliquis. This is her 1st DVT. [place] to be provoked due to recent falls. Other chronic medical conditions include Chronic back pain, hyperlipidemia, GERD, osteoporosis, asthma Continue home regimen VTE Prophylaxis: On Eliquis for right lower extremity DVT I discussed advanced care planning with this patient. This note was dictated using M*Modal fluency dictation system and there may be errors in tapper operator. Despite proof reading the note, there may be mistakes and I apologize for those. By: LINH Acosta, 02/22/2022 1:45 PM CDT documented in this encounter Plan of Treatment Not on file documented as of this encounter Visit Diagnoses Not on filedocumented in this encounter
--- OUTSIDE RECORDS SUMMARY | 2024-07-11 22:31 | XMS_ITS | Encounter Summary ---
Author Organization [facility] Address [address] [place] [address] Phone Care Team Providers Care Church Supervisor Name Role Phone Unavailable Primary Care Provider Unavailabl e Encounter Details Date Type Department Care Team (Late st Contact Info) Description 04/26/2022 Nursing Facility [facility] [address] [place] [address] Robinson Villarreal, PAC [address] [place], [place] [address] Social History Tobacco Use Types Packs/Day Years Used Date Smoking Tobacco: Never Assessed Comments Unknown Sex and Gender Information Value Date Recorded Sex Assigned at Not on file Legal Sex Female 7:54 PM CDT Gender Identity Not on file Sexual Orientation Not on file documented as of this encounter Progress Notes * Robinson Villarreal, LINH - 04/26/2022 3:28 PM CDT [facility] PROGRESS NOTE Criss Ly is a 72 y.o. female at [facility] for rehabilitation. Prior to coming to rehabilitation facility patient had been hospitalized for progressive weakness and frequent falls, workup showing stenosis of at a level of the cervical spine.. Subjective: Interval History: Patient reports she is feeling ???pretty good?? overall. Refused her Lasix this morning because she is leaving the facility this afternoon and does not wantany urinary issues. Workup of her polyuria and occasional urge incontinence was unremarkable with no signs of infectionand lab work does not suggest over-diuresis. Patient requesting to decrease Lasix dose down to 10 mg. Says that she was on 10 mg before hospitalizations in coming to rehabilitation facility. No concerns otherwise. Nursing staff saying patient frequently refuses her morning insulin because she does not eat breakfast. Past medical history: Type 2 diabetes mellitus Chronic kidney disease Diabetic peripheral neuropathy Hypertension Hyperlipidemia Review of Systems: A 14 point comprehensive review of systems was negative except what is documented in interval history above. Objective: Exam: Vital Signs: B/P: 132/74 Pulse: 70 Respirations: 18 Temperature: 97.8 General: Well developed, [...] yet. Patient says that her PCP and towerman have already given medical clearance to the surgeon. 03/28 - return to facility yesterday after having lumbar surgery. Being followed by neurosurgery . Nursing staff providing wound care to surgical site. P.r.n. pain medicines. Receiving therapy again. 04/08 - has virtual follow-up with surgeon on 04/10 04/15 - improving Generalized weakness and deconditioning Receiving [facility] care and physical therapy rehabilitation 04/11 - [...] with Eliquis. This is her 1st DVT. [place] to be provoked due to recent falls. [...] system and there may be errors in mechanical door repairer. Despite proof reading the note, there may be mistakes and I apologize for those. By: LINH Acosta, 04/26/2022 3:29 PM CDT documented in this encounter Plan of Treatment Not on file documented as of this encounter Visit Diagnoses Not on filedocumented in this encounter
--- OUTSIDE RECORDS SUMMARY | 2024-07-11 22:31 | XMS_ITS | Encounter Summary ---
Author Organization [facility] Address [address] [place] [address]. [place] [address] [place] [address] Care Team Providers Care Laminating Machine Tender Name Role Phone Lalito England MD Primary Care Provider [phone] Reason for Visit * Auth/Cert Specialty Diagnoses / Procedures Referred By Contac t Referred To Contact Diagnoses LUMBAR STENOSIS WITH CLAUDICATION, BILATERAL FOOT DROP M48.062, M21.371, M43.10 Procedures LUMBAR 4-5 LAMINECTOMY Robinson Block MD [address] [address] Phone: tel: fax: Referral ID Status Reason Start Date Expiration Date Visits Re quested Visits Authorized [id number] 1 1 Encounter Details Date Type Department Care Team (Late st Contact Info) Description 03/25/2022 12:54 PM CDT - 03/25/2022 4:14 PM CDT Surgery [facility] [place] [address] Robinson Block MD [address] [id number] LUMBAR 4-5 LAMINECTOMY Surgery Details Date/Time Status Location OR Service Patient Class Case Class Case Type Trauma Case? 03/25/2022 12:54 PM Posted [facility] OR OR 7 Neurosurgery Short Stay/Outpat ient Surgery E - Elective No Panel 1 Procedure LRB Anes Op Region Wound Class Comments LUMBAR 4-5 LAMINECTOMY N/A General Spine Clean Surgeon Surgeon Role Service Panel Robinson Block MD Primary Neurosurgery 1 Case Notes SCHED BY FAX ON 03/15/2022 LCS PHONE ASSESS Special Needs MICROSCOPE, [place], STEVE EVANS, C-ARM, SERENE ASSISTING documented in this encounter Social History Tobacco [...] Sign Reading Time Taken Comments Blood Pressure 119/60 03/25/2022 11:01 AM CDT Pulse 57 03/25/2022 11:01 AM CDT Temperature 36.2 ??C (97.2 ??F) 03/25/2022 11:01 AM C DT Respiratory Rate 16 03/25/2022 11:01 AM CDT Oxygen Saturation 96% 03/25/2022 11:01 AM CDT Inhaled Oxygen Concentration - - Weight 104.3 kg (230 lb) 03/20/2022 10:06 AM CDT Height 142.2 cm (4' 8 ) 03/20/2022 10:06 AM CDT Body Mass Index 37.12 03/25/2022 7:30 PM CDT documented in this encounter Functional Status * RETIRED Are you deaf or do [...] as of this encounter Mental Status * Because of a physical, mental, or [...] shower on . Follow up with Umair virtually in two weeks and in person 6 [...] toOT evaluation. Home Living Type of Home [facility] facility (Receiving rehab since 01/18/22) Home Layout One level Home Accessibility 0 Steps to enter Bathroom Shower/Tub Walk-in shower Bathroom Toilet Elevated height toilet (ADA height);Grab bars around toilet Bathroom Equipment Grab bars in shower;Tub/shower chair with back Bathroom Accessibility Accessible Home Equipment 4 Wheeled walker;2 Wheeled walker;Straight cane (using WC at [place]) Prior Function Level of [place] Needs assistance with ADLs;Needs assistance with homemaking;Needs assistance with functional transfers;Needs assistance with ambulation Device used at baseline Wheelchair-manual (sit to stand lift at SNF) Baseline Ambulation Distance/Assistance Non-ambulatory 3 months Fall [...] for ADLs. Recommendation OT Recommendation OT at alf facility OT Equipment Recommended To Be Determined Plan OT Treatment/Intervention Self-care training;Therapeutic exercises;Therapeutic activities;Safety;Functional activity;Continued evaluation;Patient/family training OT Frequency 3 times/week OT plan for next session ADLs If this is the last treatment note, it will serve as the discharge summary Yes End of Session End of Session Safety Chair alarm set/activated;Call light within reach;Nursing aware of session Interdisciplinary Collaboration RN, OT * Fatmata Diego, PT - 03/26/2022 [...] Other IV Home Living Type of Home [facility] facility (Receiving rehab since 01/18/22) Home Equipment 4 Wheeled walker;2 Wheeled walker;Straight cane (using WC at [place]) Prior Function Level of [place] Needs assistance with functional transfers;Needs assistance with ADLs Device used at baseline Wheelchair-manual (SIT TO STAND LIFT TRANSFERS AT [facility]) Baseline Ambulation Distance/Assistance Non-ambulatory 3 months [...] Nursing aware. Recommendation PT Recommendation PT at alf Facility PT Equipment Recommended To Be Determined [...] session Interdisciplinary Collaboration PT, OT, RN * Concepcion Kennedy CONTACT LENS EDGE BUFFER - 03/26/2022 11:04 AM CDT SW met with pt to discuss potential need at discharge. Pt plans to return to her rehab facility, [facility] [phone]. Pt states that her sister will transport her. SW confirmed with rehab facility that pt is able to return. Nurse was instructed to call report to [phone] and use prompts to nurses station 2. They do not require for pt to have a covid swab. SW will fax discharge summary to [phone] when available. 13:55 Therapy worked with pt and does not believe that she can go by car. Pt was max assist to get up. She will be too weak to sit for the transport for that amount of time. EMS arranged for 4:30 PM (soonest available) through [facility]. PCS on chart. 03/26/22 1100 Referral Data [...] of major lifestyle changes, including change in half-way living environment No Family concerns/conflicts No Inadequate [...] can be moved side to side, hand program director scouting/push and pulls equal and strong. Pt is [...] PM CDT LUMBAR 4-5 LAMINECTOMY Procedure Note Criss Ly 03/25/2022 Surgeon(s): Robinson Block MD Road Engineer: Private Rotary Drill Operator Helper: Serene Saenz NP Pre-Op Diagnosis: 1. L4-5 [...] Block MD - 03/25/2022 5:31 PM CDT [facility] Brief Op HSHSLUMBAR 4-5 LAMINECTOMY Procedure Note Criss Pitts Ly 03/25/2022 1254 Procedure(s) (LRB): LUMBAR 4-5 LAMINECTOMY (N/A) Surgeon(s): Robinson Block MD Road Engineer: Private Rotary Drill Operator Helper: Serene Saenz NP Anesthesia: General Pre-Op Diagnosis: LUMBAR STENOSIS WITH CLAUDICATION, BILATERAL FOOT DROP M48.062, M21.371, M43.10 Post-Op Diagnosis: Same Findings: 1. Severe [place] Canal stenosis at L4-5 2. Severe Right L4-5 lateral recess stenosis from scar and ligamentum hypertrophy 3. Scar at previous left L4-5 laminotomy Estimated Blood Loss: less than 50 mL Drains: None Specimens: None Robnison Block MD Date: 03/25/2022 Time: 5:31 PM * OR PreOp - Citlaly Wilson RN - 03/21/2022 10:45 AM CDT Incoming call from Nelly at [facility]. She would like more information about pt [...] from January. [facility]. Please call if not needed. She will also send ekg and any other testing. * OR PreOp - Brea Pinedo RN - 03/21/2022 10:27 AM CDT Called [facility] to ask for labs and EKG. Was sent to [facility]. Message left. * OR PreOp - Linn Acevedo CNP - 03/20/2022 11:18 AM CDT Chart reviewed. Per phone interview, patient uses wheelchair 2/2 weakness in legs. Denies CP or extreme SOB. Pt is weaker 2/2 back problems. Per phone interview, patient denies having a senior clinical research scientist.Pt had EKG within last 2 weeks at [facility]. Please request EKG from facility. Hx PONV [...] Echo?) ekg in last 2 weeks at [facility] Do you see a senior clinical research scientist? Who is it? No Pfizer vaccinated Had COVID feb 8 was last day of isolation (13 days) [...] - 99 mg/dL 03/26/2022 8:24 PM CDT [facility] 03/26/2022 8:04 PM CDT us Robinson Block MD POCT ORDERABLES - DEVICE Fin al Result Performing Organization Address City/[facility]/ZIP Co de Phone Number [facility] [address] [place] [address], [place] [phone] * (ABNORMAL) POCT glucose (03/26/2022 5:43 PM CDT) GLUCOSE POC 324(H) 70 - 99 mg/dL 03/26/2022 5:45 PM CDT [facility] 03/26/2022 5:43 PM CDT us Robinson Block MD POCT ORDERABLES - DEVICE Fin al Result Performing Organization Address City/[facility] Co de Phone Number [facility] [address] [place] [address], [place] [phone] * (ABNORMAL) POCT glucose (03/26/2022 10:54 AM CDT) GLUCOSE POC 178(H) 70 - 99 mg/dL 03/26/2022 10:56 AM CDT [facility] 03/26/2022 10:5 4 AM CDT us Robinson Block MD POCT ORDERABLES - DEVICE Fin al Result Performing Organization Address City/[facility]/ZIP Co de Phone Number [facility] [address] [place] [address], [place] [phone] * (ABNORMAL) POCT glucose (03/26/2022 8:23 AM CDT) GLUCOSE POC 148(H) 70 - 99 mg/dL 03/26/2022 8:59 AM CDT [facility] 03/26/2022 8:23 AM CDT Robinson Block MD POCT ORDERABLES - DEVICE Fin al Result Performing Organization Address City/[facility] Co de Phone Number [address] [address], [place] [phone] * (ABNORMAL) POCT glucose (03/25/2022 8:57 PM CDT) GLUCOSE POC 215(H) 70 - 99 mg/dL 03/25/2022 8:59 PM CDT [facility] 03/25/2022 8:57 PM CDT Robinson Block MD POCT ORDERABLES - DEVICE Fin al Result Performing Organization Address City/[facility] de Phone Number [address] [address], [place] [phone] * SURG XR LUMB SPINE 1V (03/25/2022 [...] By: Prashanth Rosales MD, 03/26/2022 12:44 AM Robinson Block MD IMAGES ONLY Final Result * (ABNORMAL) POCT glucose (03/25/2022 5:50 PM CDT) GLUCOSE POC 145(H) 70 - 99 mg/dL 03/25/2022 5:51 PM CDT [facility] 03/25/2022 5:50 PM CDT Robinson Block MD POCT ORDERABLES - DEVICE Fin al Result [facility] [address] [place] [address], [place] [phone] * (ABNORMAL) POCT glucose (03/25/2022 11:30 AM CDT) GLUCOSE POC 197(H) 70 - 99 mg/dL 03/25/2022 11:32 AM CDT [facility] 03/25/2022 11:3 0 AM CDT us Robinson Block MD POCT ORDERABLES - DEVICE Fin al Result [facility] [address] [place] [address], [place] [phone] documented in this encounter Visit Diagnoses Not on filedocumented in this encounter Administered Medications Inactive Administered Medications - up to 3 most recent administrations Medication Order MAR Action Action Date Dose Rate Site atorvastatin (LIPITOR) tablet 20 mg 20 mg, Oral, Nightly at bedtime, First dose on Fri03/25/22 at 2100, Until Discontinued, Per [facility] therapeutic interchange protocol; substitute for simvastatin Given 03/25/2022 9:58 PM CDT 20 mg BUpivacaine 0.5 % (MARCAINE) 0.5 % injection As needed, Starting on Fri03/25/22 at 1520, Until Fri03/25/22 at 1745, Intra-Op Given 03/25/2022 3:20 PM CDT 5 mLs Operative Site calcium carbonate-vitamin D (OS-MARSHALL + D) 500 mg-5 mcg tablet 1 tablet 1 tablet, Oral, Daily, First dose on Fri03/25/22 at 1930, Until Discontinued, Per [facility] therapeutic interchange protocol Given 03/26/2022 8:46 AM [...] 1907, Until Fri03/25/22 at 1908, Created by cass gonsalves insulin lispro (HUMALOG) injection 0-18 Units 0-18 [...] Pre-Op New Bag 03/25/2022 2:34 PM CDT lidocaine-EPINEPHrine 1 %-1:329306 injection As needed, Starting on Fri03/25/22 at 1520, Until Fri03/25/22 at 1745, Intra-Op Given 03/25/2022 3:20 PM CDT 5 mLs Operative Site methocarbamol (ROBAXIN) tablet 750 mg 750 mg, [...] 2106, Until Fri03/26/22 at 2338 NON FORMULARY As needed, Starting on Fri03/25/22 at 1651, Until Fri03/25/22 at 1745, Intra-Op Given 03/25/2022 4:51 PM CDT 5 mLs Operative Site ondansetron (ZOFRAN) injection 4 mg 4 mg, [...] New Bag 03/25/2022 10:08 PM CDT 75 mL/hr vancomycin (VANCOCIN) injection As needed, Starting on Fri03/25/22 at 1710, Until Fri03/25/22 at 1745, Intra-Op Given 03/25/2022 5:10 PM CDT 1,000 mg Operative Site documented in this encounter Active and Recently Administered Medications Times are shown in CDT. Scheduled Medication Order 03/24/2022 03/25/2022 03/26/2022 atorvastatin (LIPITOR) tablet 20 mg 20 mg, Oral, Nightly at bedtime, First dose on Fri03/25/22 at 2100, Until Discontinued, Per [facility] therapeutic interchange protocol; substitute for simvastatin 2157 (Given - Provider: Martha Ambrose RN) 2100 (Canceled Entry - Provider: Automatic Discharge Provider - Comment: Automatically canceled at discontinue of medication order) calcium carbonate-vitamin D (OS-MARSHALL + D) 500 mg-5 mcg tablet 1 tablet 1 tablet, Oral, Daily, First dose on Fri03/25/22 at 1930, Until Discontinued, Per [facility] therapeutic interchange protocol 1930 (Given - Provider: Radha Barajas RN) 0846 (Given - Provider: Francoise Pak RN) ceFAZolin (ANCEF) 2 g in NS 100 mL IVPB (COMPLETED) 2 g, Intravenous, at 200 mL/hr, scallop cutter machine to O.R., 1 dose, First dose on [...] dose on Fri03/25/22 at 2100, Until Discontinued 1931 (Given - Provider: Radha Barajas RN) 0846 (Given - Provider: Francoise Pak RN)2100 (Canceled [...] Ambrose RN) 0846 (Given - Provider: Francoise Pak RN)1616 (Given - Provider: Francoise Pak RN)2100 (Canceled [...] than 400:? 18 units and Call Physician] 191 (Not Given - Provider: Radha Barajas RN - Reason: Other - Comment: patient in PACU, no meal given) 0845 (Given - Provider: Francoise Pak RN)1350 (Given - Provider: Francoise Pak RN)1802 (Given [...] than 400:? 9 units and Call Physician] 2157 (Given - Provider: Martha Ambrose RN) 2100 (Canceled Entry - Provider: Automatic Discharge Provider - Comment: Automatically canceled at discontinue of medication order) methocarbamol (ROBAXIN) tablet 750 mg 750 mg, Oral, 3 times daily, First dose on Fri03/26/22 at 0000, Until Discontinued 233 (Given - Provider: Martha Ambrose, SEBASTIÁN) 0846 (Given - Provider: Francoise Pak, SEBASTIÁN)1616 [...] Barajas RN) 0618 (Given - Provider: Martha Ambrose RN)1616 (Given - Provider: Francoise Pak RN) Continuous Medication Order 03/24/2022 03/25/2022 03/26/2022 lactated [...] interval., PACU 1805 (Given - Provider: Radha Barajas RN) HYDROcodone-acetaminophen (NORCO) 5-325 MG tablet 1 [...] 1349 (Given - Provid er: Francoise Pak RN)2030 (Given - Provider: Martha Ambrose RN) lidocaine-EPINEPHrine 1 %-1:832078 injection (CANCELED) As needed, Starting on Fri03/25/22 at 1520, Until Fri03/25/22 at 1745, Intra-Op 1520 (Given - Provider: Robinson Block MD) ylaxbtbkv-hhbdagvt-vnfymeeg one (MYLANTA MAXIMUM STRENGTH) 8073-0619-605 mg/30mL suspension 10 mL, Oral, Every 4 [...] Physician] documented in this encounter Care Teams Laminating Machine Tender Relationship Specialty Start Date End Date Lalito England MD [address] [place] [id number] PCP - General INTERNAL MEDICINE 02/05/22 documented as of this encounter
--- OUTSIDE RECORDS SUMMARY | 2024-07-11 22:31 | XMS_ITS | Encounter Summary ---
Author Organization [facility] Address [address] [place] [address] Phone Care Team Providers Care Janitor Head Name Role Phone Unavailable Primary Care Provider Unavailabl e Encounter Details Date Type Department Care Team (Late st Contact Info) Description 06/14/2022 Nursing Facility [facility] [address] [place] [address] Robinson Villarreal, PAC [address] [place], [place] [address] Social History Tobacco Use Types Packs/Day Years Used Date Smoking Tobacco: Never Assessed Comments Unknown Sex and Gender Information Value Date Recorded Sex Assigned at Not on file Legal Sex Female 7:54 PM CDT Gender Identity Not on file Sexual Orientation Not on file documented as of this encounter Progress Notes * Robinson Villarreal, LINH - 06/14/2022 2:22 PM CST [facility] PROGRESS NOTE Criss Ly is a 72 y.o. female at [facility]. Prior to coming to rehabilitation facility patient had been hospitalized for progressive weakness and frequent falls, workup showing stenosis of at a level of the cervical spine.. Subjective: Interval History: I am seeing patient today for routine monthly mcc visit. Says she is feeling ???good?? . Denies any acute symptoms or concerns. Has friend here visiting with her. Feels like she has had some improvement in her lower extremity strength recently and is hopeful to regain enough strength and ambulation to be able to go to [facility]. She is getting all her medications filled at local pharmacy and that is a lot cheaper for her and she is happy about that.\ Past medical history: Type 2 diabetes mellitus Chronic kidney disease Diabetic peripheral neuropathy Hypertension Hyperlipidemia Review of Systems: A 14 point comprehensive review of systems was negative except what is documented in interval history above. Objective: Exam: Vital Signs: B/P: 132/74 Pulse: 70 Respirations: 20 Temperature: 98.2 General: Well developed, well nourished, [...] Study: R60.0 LOCALIZED EDEMA Principal Result Supervisor Frame Assembly: WILFREDO REYNOLDS ([id number]) Musculoskeletal Physiotherapist: ANA DELGADO (CJALAFF) Cloth Examiner Machine Musculoskeletal Physiotherapist: LE VENOUS DOPPLER EXTREM/LOMAS, RIGHT Comparison: 03/13/2022 [...] yet. Patient says that her PCP and mechanical service technician have already given medical clearance to the surgeon. 03/28 - return to facility yesterday after having lumbar surgery. Being followed by neurosurgery Dr. Block. Nursing staff providing wound care to surgical [...] other possible cause. 05/14 - no improvement 06/14 - some improvement as of late according to patient. Nurse surgeon has ordered lumbar spine MRI. Insulin-dependent diabetes mellitus Home regimen will be continued and includes high-dose scheduled NovoLog before each meal and Lantusin addition to glipizide Monitor Accu-Cheks and adjust regimen as necessary 06/14- blood sugars at acceptable levels overall other than occasional spikes Recurrent Right lower extremity DVT Diagnosed in 01/17. Found to have a nonocclusive thrombus in right mid superficial femoral vein. Being treated with Eliquis. This is her 1st DVT. [place] to be provoked due to recent falls. [...] failure On Lasix No signs of acute Well controlled Generalized weakness and deconditioning Receiving group home care and physical therapy rehabilitation 04/11 - significant improvement over the last 1 week 05/03 - has completed skilled portion of her therapy. Ultimately wants to go home but needs to muchassistance. May be able to return home in the future. Will be staying in the facility for now. 06/14 - improving Diabetic peripheral neuropathy Continue gabapentin Stable Chronic kidney disease stage [address] Paige Avoid nephrotoxic agents Hypertension Continue clonidine Monitor blood pressures Other chronic medical conditions include Chronic back pain, hyperlipidemia, GERD, osteoporosis, asthma Continue home regimen VTE Prophylaxis: Activity I discussed advanced care planning with this patient. Disposition: 06/14: Currently patient is a long-term resident here. If she can regain more strength and ambulation then she is hoping to be transferred to [facility]. This note was dictated using M*Modal fluency dictation system and there may be errors in best second jobs. Despite proof reading the note, there may be mistakes and I apologize for those. By: Robinson Villarreal, LINH, 06/14/2022 2:27 PM CREDIT UNION TELLER IT UNION TELLER documented in this encounter Plan of Treatment Not on file documented as of this encounter Visit Diagnoses Not on filedocumented in this encounter
--- OUTSIDE RECORDS SUMMARY | 2024-07-11 22:31 | XMS_ITS | Encounter Summary ---
Author Organization [facility] Address [address] [place] [address] Phone Care Team Providers Care Hog Sawyer Name Role Phone Unavailable Primary Care Provider Unavailabl e Encounter Details Date Type Department Care Team (Late st Contact Info) Description 05/17/2022 Nursing Facility [facility] [address] [place] [address] Robinson Villarreal, PAC [address] [place] [id number] Social History Tobacco Use Types Packs/Day Years Used Date Smoking Tobacco: Never Assessed Comments Unknown Sex and Gender Information Value Date Recorded Sex Assigned at Not on file Legal Sex Female 7:54 PM CDT Gender Identity Not on file Sexual Orientation Not on file documented as of this encounter Progress Notes * Robinson Villarreal, LINH - 05/17/2022 1:11 PM CDT [facility] PROGRESS NOTE Criss Ly is a 72 y.o. female at [facility] for rehabilitation. Prior to coming to rehabilitation facility patient had been hospitalized for progressive weakness and frequent falls, workup showing stenosis of at a level of the cervical spine.. Subjective: Interval History: Therapy says that she is not improving. Patient agrees. Patient reports that she is having pain in upper back. Nonradiating. No mechanism of injury. This pain has been present intermittently for quite some time now but has been worsening as of late. Were continuing to try to get her medications filled a local pharmacy in hopes that it will be lessexpensive. Past medical history: Type 2 diabetes mellitus Chronic kidney disease Diabetic peripheral neuropathy Hypertension Hyperlipidemia Review of Systems: A 14 point comprehensive review of systems was negative except what is documented in interval history above. Objective: Exam: Vital Signs: B/P: 132/74 Pulse: 78 Respirations: 16 Temperature: 98 General: Well developed, well nourished, [...] for Study: R60.0 LOCALIZED EDEMA Principal Result Collet Maker: WILFREDO REYNOLDS ([id number]) Shoe Repairer Helper: ANA DELGADO (CJALAFF) [employer]tron[employer] Technician Shoe Repairer Helper: KATHERIN VENOUS DOPPLER EXTREM/LOMAS, RIGHT Comparison: 03/13/2022 [...] REYNOLDS D.O. 05/01/2022 1:45:54 PM CDT. Assessment/Plan: Pain in bilateral mid trapezius and rhomboids 05/17 - related to her forward leaning posture while in the chair. Complicated by underlying cervical spine conditions. Educated on nzrbv-yx-aeomls exercises to both shoulders and the neck. Will orderlidocaine patches q.a.m.. Chronic neck pain with stenosis of cervical [...] yet. Patient says that her PCP and service car operator have already given medical clearance to the [...] with Eliquis. This is her 1st DVT. [place] to be provoked due to recent falls. [...] of acute Generalized weakness and deconditioning Receiving fci care and physical therapy rehabilitation 04/11 - [...] system and there may be errors in harness and bag inspector. Despite proof reading the note, there may be mistakes and I apologize for those. By: LINH Acosta, 05/17/2022 1:12 PM CDT documented in this encounter Plan of Treatment Not on file documented as of this encounter Visit Diagnoses Not on filedocumented in this encounter
--- OUTSIDE RECORDS SUMMARY | 2024-07-11 22:31 | XMS_ITS | Encounter Summary ---
Author Organization [facility] Address [address] [place] [address] Phone Care Team Providers Care Jewelry Model Maker Name Role Phone Unavailable Primary Care Provider Unavailabl e Encounter Details Date Type Department Care Team (Late st Contact Info) Description 01/25/2022 [facility] [address] [place] [address] Mable Mcneil MD [address] [place] [address] Social History Tobacco Use Types Packs/Day Years Used Date Smoking Tobacco: Never Assessed Comments Unknown Sex and Gender Information Value Date Recorded Sex Assigned at Not on file Legal Sex Female 7:54 PM CDT Gender Identity Not on file Sexual Orientation Not on file documented as of this encounter H&P Notes * Mable Mcneil MD - 01/25/2022 11:59 PM CDT [facility] History and Physical Chief Complaint: Falls, spinal stenosis HPI: Criss Ly is a 71 yo female who has transferred to [facility] for post-acute care and rehabilitation. Prior to coming to rehabilitation facility, the patient had been hospitalized at [facility] from 01/16 to 01/18 for progressive BLE weakness and frequent falls. Hospitalworkup showed cervical spinal stenosis. She had no indications for emergent transfer, but ortho spine physician supervisor erection shop felt patient will need surgical intervention. Patient has follow-up appointmentwith neurosurgery scheduled for 02/05/2022. At the time of this assessment, the patient complained of continued BLE weakness and unsteady gait. History obtained from: patient, medical records Review of Prior External Notes: [facility] records Allergies: NKA Past Medical History: T2DM, CKD Stage 4, HTN, HLD, anemia, osteoarthritis, osteoporosis, PNP Surgical History: Colonoscopy, lumbar spine surgery with micro-disc compression, bilateral TKA, reduction mammaplasty, tonsillectomy Social History: Denies smoking and use of alcohol. Physical Exam: Vital Signs: All vitals were reviewed in the facility EMR and are stable. Exam: General: Well developed, well nourished, in no [...] bowel sounds normal; no masses, no organomegaly : external genitalia normal in appearance Extremities: no deformities, joint mobility appears intact, no clubbing, 2+ pitting edema BLE Neuro: Non-focal, CN intact, sensory and motor intact Psychological: alert and oriented X3, appropriate mood and affect, Intact judgement and memory Data Review: Lab Results: On 01/16/2022 hospital, CBC with WBC of 10.4, hemoglobin 11.3 otherwise unremarkable. CMP with a creatinine of 2.2 otherwise unremarkable Imaging: US Venous doppler confirmed RLE DVT Orders: Start patient on 2.5 mg Eliquis BID for DVT prevention Assessment/Plan: 1. 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 This is felt to be the cause of her progressive weakness and frequent falls. She is an appointment with neurosurgery on 02/05. Continue pain management with Marlette and Flexeril. 2. Frequent falls, generalized weakness and decreased mobilization. The patient is to receive PT and OT at the SNF to improve strength, balance, and mobility back to baseline. 3. Diabetes Mellitus Type 2, insulin dependent. Continue management with Lantus, scheduled Novalog a.c., and PO glipizide. Monitor Accu-checks at the SNF and adjust dosage if needed. Patient has alsobeen encouraged to follow a diabetic diet. Check A1c periodically as outpatient. 4. Diabetic neuropathy. Stable. Continue gabapentin. 5. Chronic Kidney Disease Stage 4. Cr noted at 2.2 upon discharge from hospital. Followed by nephrology Dr. Paige. Avoid nephrotoxic agents and monitor the evolution of kidney function with CMP periodically. 6. Hypertension. BP stable. Continue management with Clonidine. Monitor vital signs while at the SNF. 7. Hyperlipidemia. Stable. Continue aspirin and statin therapy. Check lipid panel periodically. 8. GERD. No acute symptoms. Continue PPI therapy with Protonix. 9. Osteoporosis and osteoarthritis. Supportive care and PT/OT at the SNF. Continue alendronate. 10. Anemia of chronic disease. Hgb stable at 11.3 upon discharge from hospital on 01/16. Monitor CBC periodically and advise transfusion if Hgb drops below 7.0. 11. Asthma. No acute respiratory distress. Continue nightly Montelukast and PRN inhaler for wheezing. 12. RLE DVT. We will start the patient on 2.5 mg Eliquis BID until her mobilization increases. VTE Prophylaxis: Patient is on oral anticoagulation with Eliquis. Disposition and escalation or reduction of care: The patient is to receive post- acute care and complete PT and OT at the SNF to improve strength, balance, and mobility back to baseline with the goal of discharging to home. Mathew Katz, acting as a scribe, am personally taking down the notes in the presence of Dr. Mable Mcneil M.D. Take no action on this note until reviewed and authenticated by the physician. By: MATHEW NICOLAS, 01/25/2022 I evaluated and examined the patient and discussed the physical findings and clinical assessment with scribe Mathew Nicolas and reviewed the medical records and notes above and agree with the content anddetails of the note. Mable Mcneil M.D. 01/25/2022 documented in this encounter Plan of Treatment Not on file documented as of this encounter Visit Diagnoses Not on filedocumented in this encounter
--- OUTSIDE RECORDS SUMMARY | 2024-07-11 22:31 | XMS_ITS | Encounter Summary ---
Author Organization [facility] Address [address] [place] [address] Phone Care Team Providers Care Fluid Pump Operator Name Role Phone Unavailable Primary Care Provider Unavailabl e Encounter Details Date Type Department Care Team (Late st Contact Info) Description 03/01/2022 Nursing Facility [facility] [address] [place] [address] Robinson Villarreal, PAC [address] [place] [address] [id number] Social History Tobacco Use Types Packs/Day Years Used Date Smoking Tobacco: Never Assessed Comments Unknown Sex and Gender Information Value Date Recorded Sex Assigned at Not on file Legal Sex Female 7:54 PM CDT Gender Identity Not on file Sexual Orientation Not on file documented as of this encounter Progress Notes * Robinson Villarreal, LINH - 03/01/2022 3:01 PM CDT [facility] PROGRESS NOTE Criss Ly is a 71 y.o. female at [facility] for rehabilitation. Prior to coming to rehabilitation facility patient had been hospitalized for progressive weakness and frequent falls, workup showing stenosis of at a level of the cervical spine.. Subjective: Interval History: Patient denies any acute symptoms. Says that her neurosurgeon is planning on lumbar surgery. Not scheduled yet. She will be staying her until the surgery at least. Feeling ok otherwise. Past medical history: Type 2 diabetes [...] None Assessment/Plan: Generalized weakness and deconditioning Receiving fci care and physical therapy rehabilitation 02/14 - [...] I will order some pre- op testing. Insulin-dependent diabetes mellitus Home regimen will be [...] with Eliquis. This is her 1st DVT. [place] to be provoked due to recent falls. Other chronic medical conditions include Chronic back pain, hyperlipidemia, GERD, osteoporosis, asthma Continue home regimen VTE Prophylaxis: On Eliquis for right lower extremity DVT I discussed advanced care planning with this patient. This note was dictated using M*Modal fluency dictation system and there may be errors in powder coater. Despite proof reading the note, there may be mistakes and I apologize for those. By: LINH Acosta, 03/01/2022 3:02 PM CDT documented in this encounter Plan of Treatment Not on file documented as of this encounter Visit Diagnoses Not on filedocumented in this encounter
--- OUTSIDE RECORDS SUMMARY | 2024-07-11 22:31 | XMS_ITS | Encounter Summary ---
Author Organization [facility] Address [address] [place] [address] Phone Care Team Providers Care Police Or Patrol Park Officer Name Role Phone Unavailable Primary Care Provider Unavailabl e Encounter Details Date Type Department Care Team (Late st Contact Info) Description 03/28/2022 Nursing Facility [facility] [address] [place] [address] Robinson Villarreal, PAC [address] [place], [place] [address] Social History Tobacco Use Types Packs/Day Years Used Date Smoking Tobacco: Never Assessed Comments Unknown Sex and Gender Information Value Date Recorded Sex Assigned at Not on file Legal Sex Female 7:54 PM CDT Gender Identity Not on file Sexual Orientation Not on file documented as of this encounter Progress Notes * Robinson Villarreal, LINH - 03/28/2022 3:42 PM CDT [facility] PROGRESS NOTE Criss Ly is a 71 y.o. female at [facility] for rehabilitation. Prior to coming to rehabilitation facility patient had been hospitalized for progressive weakness and frequent falls, workup showing stenosis of at a level of the cervical spine.. Subjective: Interval History: I am seeing the patient acutely today for readmission/hospitalization follow-up. Patient returned facility yesterday after having her planned lumbar surgery. She denies any complications with this. Her pain was uncontrolled when she arrived, pain medicine frequency has been increased to q.6 hours p.r.n.. She says that this is helping. Nursing staff providing wound care to surgical site. Patient re ports that she already feels like PE sensation in her legs is improved compared to what it was before. She did therapy earlier today and says that went well. Prior to her surgery I had a repeat Doppler done of her right leg to see if her DVT was still present or not and it was negative for DVT so Eliquis was discontinued prior to her surgery and no indication to be restarted at this point. Blood sugars have been well controlled since she returned. Has no other concerns. Past medical history: Type 2 diabetes mellitus Chronic kidney disease Diabetic peripheral neuropathy Hypertension Hyperlipidemia Review of Systems: A 14 point comprehensive review of systems was negative except what is documented in interval history above. Objective: Exam: Vital Signs: B/P: 138/68 Pulse: 77 Respirations: 20 Temperature: 98.5 General: Well developed, well nourished, [...] yet. Patient says that her PCP and fixture designer have already given medical clearance to the surgeon. 03/28 - return to facility yesterday after having lumbar surgery. Being followed by neurosurgery . Nursing staff providing wound care to surgical site. P.r.n. pain medicines. Receiving therapy again. Generalized weakness and deconditioning Receiving long term care and physical therapy rehabilitation 02/14 - [...] resolve. 02/14 - improving 02/22 - recovered Insulin-dependent diabetes mellitus Home regimen will be [...] continue to use that. 02/14 - improving The Constipation Continue p.r.n. bowel regimen 01/28 - [...] with Eliquis. This is her 1st DVT. [place] to be provoked due to recent falls. [...] this patient. This note was dictated using ScribeStorm*Stampt fluency dictation system and there may be errors in campus rep. Despite proof reading the note, there may be mistakes and I apologize for those. By: Robinson Villarreal, LINH, 03/28/2022 3:43 PM CDT documented in this encounter Plan of Treatment Not on file documented as of this encounter Visit Diagnoses Not on filedocumented in this encounter
--- OUTSIDE RECORDS SUMMARY | 2024-07-11 22:32 | XMS_ITS | Encounter Summary ---
Author Organization [facility] Address [address] [place] [address] Care Team Providers Care Food Handler Name Role Phone Lalito England MD Primary Care Provider [phone] Reason for Visit * Reason Onset Date Comments Shortness of Breath 07/02/2024 Encounter Details Date Type Department Care Team (Late st Contact Info) Description 07/02/2024 Nurse Triage [facility] [address] [facility] [place] [address] Lalito England MD [address] [place] [address] Social History Tobacco Use Types Packs/Day Years Used Date Smoking Tobacco: Never Passive Smoke Exposure: Past Smokeless Tobacco: Never Alcohol Use Standard Drinks/Week Comments Yes 0 (1 standard drink = 0.6 oz pur e alcohol) occasional [facility] Utilities Answer Date Recorded In the past 12 months has [employer], gas, oil, or water [employer] threatened to shut off services in your home? No 01/19/2024 Social Connection and Isolat ion Panel [NHANES] Answer Date Recorded In a typical week, how many times do you talk on the phone with family, friends, or neighbors? More than three times a week 01/19/2024 How often do you get togethe r with friends or relatives? Twice a week 01/19/2024 How often do you attend [facility] or baptism services? Never 01/19/2024 Do you belong to any clubs o r organizations such as scientology groups, unions, fraternal or athletic groups, or school groups? No 01/19/2024 How often do you attend meet ings of the clubs or organizations you belong to? Never 01/19/2024 Are you , , di vorced, , never , or living with a partner? 01/19/2024 AUDIT-C Answer Date Recorded Q1: How often do you have a drink containing alcohol? Never 04/14/2024 Q2: How many drinks containi ng alcohol do you have on a typical day when you are drinking? Patient does not drink Q3: How often do you have si x or more drinks on one occasion? Never 04/14/2024 Overall Financial Resource Strain (CARDIA) Answe r Date Recorded How hard is it for you to pa y for the very basics like food, housing, medical care, and heating? Not very hard 01/19/2024 PHQ-2 Answer Date Recorded PHQ-2 Total Score (If total score is 3 or more points, staff should administer the PHQ-9) 0 05/12/2024 Hunger Vital Sign Answer Date Recorded Within the past 12 months, y ou worried that your food would run out before you got the money to buy more. Never true 01/19/20 24 Within the past 12 months, t he food you bought just didn't last and you didn't have money to get more. Never true 01/19/2024 PRAPARE - Transportation Answer Date Re corded In the past 12 months, has l ack of transportation kept you from medical appointments or from getting medications? No 02/2024 In the past 12 months, has l ack of transportation kept you from meetings, work, or from getting things needed for daily living? No 01/19/2024 Housing Stability Vital Sign Answer Albaro e Recorded In the last 12 months, was t here a time when you were not able to pay the mortgage or rent on time? No 07/16/2022 In the last 12 months, how many places have you lived? 2 07/16/2022 In the last 12 months, was t here a time when you did not have a steady place to sleep or slept in a jail (including now)? No 07/16/2022 Housing Stability Vital Sign Answer Albaro e Recorded In the last 12 months, was t here a time when you were not able to pay the mortgage or rent on time? No 01/19/2024 In the past 12 months, how m any times have you moved where you were living? 0 01/19/2024 At any time in the past 12 m [facility], were you homeless or living in a jail (including now)? No 01/19/2024 Personal Safety Answer Date Recorded Have you ever been in or are you currently in a harmful physical or emotional relationship or is someone making you feel afraid or unsafe? Denies 04/20/2024 Comments No Sex and Gender Information Value Date Recorded Sex Assigned at Not on file Legal Sex Female 11:52 PM RN FAMILY PRACTICE Gender Identity Not on file Sexual Orientation Not on file documented as of this encounter Miscellaneous Notes * Telephone Encounter - Kimmie Caruso RN - 07/02/2024 4:10 PM CST Pt calling to report mild SOB. Onset yesterday. Pt speaking in complete sentences. Other current symptoms include runny nose, cough with yellow phlegm, sore throat, Denies chest pain, dizziness, ear ache. Pt taking Tylenol every 6 hrs. Pt scheduled for [facility] tomorrow 07/03 Care advice given for difficulty breathing. Advised to call back with new or worsening symptoms. Ptverbalized understanding and agreement. Reason for Disposition MILD difficulty breathing (e.g., minimal/no SOB at rest, SOB with walking, pulse < 100) of new-onset or worse than normal Protocols used: Breathing [id number] FAMILY PRACTICE * Telephone Encounter - Kimmie Caruso RN - 07/02/2024 4:08 PM CST Regarding: difficulty breathing ----- Message from Brandy George sent at 07/02/2024 4:04 PM RN FAMILY PRACTICE ----- Symptom Based Call Chief Complaint(s): difficulty breathing Duration: yesterday What type of symptom(s) is the patient experiencing? Red Flag. Is the patient concerned they are experiencing a medical emergency requiring an ambulance? No Additional Comments: pt called and stated that she is having difficulty breathing along with congestion and cough with runny nose. Does message need to be routed? Yes-Action Needed FAMILY PRACTICE documented in this encounter Plan of Treatment Not on file documented as of this encounter Visit Diagnoses Not on filedocumented in this encounter Care Teams Food Handler Relationship Specialty Start Date End Date Lalito England MD [address] [place] [address] PCP - General 08/03/19 documented as of this encounter
--- OUTSIDE RECORDS SUMMARY | 2024-07-11 22:32 | XMS_ITS | Encounter Summary ---
Author Organization [facility] Healthcare Address [address] [place] [address] Care Team Providers Care Hearth Feeder Name Role Phone Lalito England MD Primary Care Provider [phone] Reason for Visit * Reason Comments Follow-up Patient here for 3 m onth f/u and PCV only. Patient has questions about insulin. [employer] insurance is sending over a form to be filled out for patient to get Eliquis through the [employer]. DM Eye Exam Patient had eye exam at Dr. Christiansen. Encounter Details Date Type Department Care Team (Late st Contact Info) Description 05/12/2024 9:30 AM CDT Office Visit [facility] [address] [address] Lalito England MD [address] [place] [address] Flu vaccine need (Primary Dx); CKD (chronic kidney disease) stage 4, GFR 15-29 ml/min (CMS/HCC) ([facility]); Hypertension associated with diabetes (HCC); Type 2 diabetes mellitus with hyperlipidemia (HCC); Age-related osteoporosis without current pathological fracture; Gastro-esophageal reflux disease without esophagitis; Degenerative lumbar spinal stenosis; Degenerative cervical spinal stenosis; Type 2 diabetes mellitus with diabetic neuropathy, with long-term current use of insulin (HCC); 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 (HCC); 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) ([facility]); History of decubitus ulcer; Annual physical exam; BMI 35.0-35.9,adult; Severe obesity (BMI 35.0-39.9) with comorbidity (HCC) Social History Tobacco Use Types Packs/Day Years Used Date Smoking Tobacco: Never Passive Smoke Exposure: Past Smokeless Tobacco: Never Alcohol Use Standard Drinks/Week Comments Yes 0 (1 standard drink = 0.6 oz pur e alcohol) occasional C Utilities Answer Date Recorded In the past 12 months has e electric, gas, oil, or water company threatened to shut off services in your [...] week 01/19/2024 How often do you attend chur ch or yazidism services? Never 01/19/2024 Do you belong to any clubs o r organizations such as restorationism groups, unions, fraternal or athletic groups, or [...] place to sleep or slept in a residential (including now)? No 07/16/2022 Housing Stability Vital Sign Answer Albaro e Recorded In the last 12 months, was t here a time when you were not able to pay the mortgage or rent on time? No 01/19/2024 In the past 12 months, how m any times have you moved where you were living? 0 01/19/2024 At any time in the past [address] [facility], were you homeless or living in a residential (including now)? No 01/19/2024 Personal Safety Answer Date Recorded Have you ever been in or are you currently in a harmful physical or emotional relationship or is someone making you feel afraid or unsafe? 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 Gender Identity Not on file Sexual Orientation Not on file documented as of this encounter Last Filed Vital Signs Vital Sign Reading Time Taken Comments Blood Pressure 124/80 05/12/2024 9:23 AM CDT Pulse 71 05/12/2024 9:23 AM CDT Temperature 36.8 ??C (98.3 ??F) 05/12/2024 9:23 AM CD T Respiratory Rate 18 05/12/2024 9:23 AM CDT Oxygen Saturation 99% 05/12/2024 9:23 AM CDT Inhaled Oxygen Concentration - - Weight 98.4 kg (217 lb) 05/12/2024 9:23 AM CDT Height 167.6 cm (5' 6 ) 05/12/2024 9:23 AM CDT Body Mass Index 35.02 05/12/2024 9:23 AM CDT documented in this encounter Progress Notes * Lalito England MD - 05/12/2024 9:30 AM CDT Images from the original note were not included. Criss Ly is a 74 y.o. year old White Non- female here an for Annual Wellness Visit. Ms. Ly presents to clinic for annual wellness exam. Complex PMHx. 1. Hx of multiple spine surgeries both cervial and lumbar. Currently workign with lumbar spine team after most recent cevical spine surgeyr with hardware in place. 2. Type 2 DM with CKD and neuropathy. Patinet with improving glycmei control with combination of novologi and semglee and semaglutide. Rare hypoglcyemia and will motnir ersopnse. 3. Chronci anticiogulation fter recurrent DVT. Patinet denies any bleeding diatheses with apixaban. 4. Patinet continues on medication for blood pressure and heart failure with losartan and furseomide. WIll continue to follow and reviewed fluid balance. Continues on clonidine as well. 5. Patinet with recnet diagnossi of melanoma on the right upper shoulder. Followgn with dermatologyand oncology for evaluation and treatemtn. Medicare Health Risk Assessment Over the last 2 weeks, how often have you been bothered by any of the following problems? Little Interest or Pleasure in Doing Things: Not at all Feeling Down, Depressed, or Hopeless: Not at all PHQ-2 Total Score (If total score is 3 or more points, staff should administer the PHQ-9): 0 In the past year, patient experienced: One or more falls in the last year: No Based on my observation of the patient, review of Health Risk Assessment (HRA) and other records, this is my assessment and recommendation regarding fall risk, hearing impairment, home safety, ADLs, or any other issues identified in the HRA: Ambulating with walker and wheelchair at home. No new falls. Resoltuoni of skin lesion on buttocks. Problem List, Past Medical and Surgical History: Patient Active Problem List Diagnosis Hyperlipidemia Type 2 diabetes mellitus with stage 3 chronic kidney disease, with long-term current use of insulin(HCC) Disorder of peripheral nervous system (CMS/HCC) Severe obesity (BMI 35.0-39.9) with comorbidity (HCC) Hypertension associated with diabetes (HCC) Fever Arthralgia of hip Adenomatous polyp of colon Sarcoidosis of lung (HCC) Idiopathic osteoporosis with pathological fracture Healthcare maintenance Medication management Hx of colonic polyps Family hx of colon cancer Persistent vomiting DDD (degenerative disc disease), lumbar Degenerative lumbar spinal stenosis Lumbar post-laminectomy syndrome Morbid (severe) obesity due to excess calories (HCC) CKD (chronic kidney disease) stage 4, GFR 15-29 ml/min (CMS/HCC) (HCC) Sacroiliitis (HCC) Cervicalgia Low back pain Insomnia secondary to chronic pain Degenerative cervical spinal stenosis Degenerative disc disease, cervical Lumbar radiculopathy Weakness of both lower extremities Type 2 diabetes mellitus with hyperlipidemia (HCC) Chronic back pain Acute embolism and thrombosis of right femoral vein (HCC) Age-related osteoporosis without current pathological fracture Difficulty in walking, not elsewhere classified Gastro-esophageal reflux disease without esophagitis Hypertension secondary to endocrine disorders Personal history of COVID-19 Spinal stenosis, lumbar region without neurogenic claudication Type 2 diabetes mellitus with diabetic neuropathy, unspecified (HCC) Unsteadiness on feet Family history of colon cancer in father Encounter for screening colonoscopy BMI 39.0-39.9,adult Chronic anticoagulation 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 (HCC) Cervical stenosis of spine 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) (HCC) Secondary hyperparathyroidism of renal origin (HCC) Controlled type 2 diabetes mellitus with hyperglycemia, with long-term current use of insulin (CMS/HCC) (HCC) CKD stage 3b, GFR 30-44 ml/min (HCC) BMI 34.0-34.9,adult Obesity (BMI 30.0-34.9) History of decubitus ulcer Flu vaccine need Annual physical exam BMI 35.0-35.9,adult Past Medical History: Diagnosis Date Asthma Benign hypertension with CKD (chronic kidney disease) stage III (HCC) Cancer (CMS/HCC) (HCC) Melanoma skin cancer Cervicalgia 11/24/2023 Dvt femoral (deep venous thrombosis) (CMS/HCC) (HCC) r eg Gastroesophageal reflux disease GERD HX OTHER MEDICAL PMO 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 07/25/2015 - HX OTHER MEDICAL RTKR 2001.; Comments: [facility] 07/25/2015 - HX OTHER MEDICAL LTKR 2005.; Comments: [facility] 07/25/2015 - HX OTHER MEDICAL Back surgery 2006.; Comments: [facility] 07/25/2015 - HX OTHER MEDICAL Cervical disc surg. 2007.; Comments: [facility] 07/25/2015 - HX OTHER MEDICAL Breast reduction 2008.; Comments: [facility] 07/25/2015 - HX OTHER MEDICAL left hip and leg surgery HX OTHER MEDICAL conversion of previous hip arthroplasty left hip; Comments: [facility] TCU unit 02/06 - 02/17/16 for rehabilitation. Hyperlipidemia Hyperlipidemia Hypertension Hypertension Lumbar stenosis Melanoma (HCC) Osteoarthritis Osteoarthritis Osteoporosis Polyp of colon colon polyps Sarcoidosis Sarcoidosis Type 2 diabetes mellitus (HCC) Diabetes type 2 Type 2 diabetes mellitus with diabetic autonomic (poly)neuropathy (HCC) Type 2 diabetes mellitus with hyperglycemia (CMS/HCC) (HCC) Type II diabetes mellitus with stage 3 chronic kidney disease (HCC) Past Surgical History: Procedure Laterality Date BACK SURGERY 08/14/2006 back surgery - microdecompression Lumbar - Dr. Srinath Tovar BACK SURGERY 03/25/2022 Dr. Robinson Block COLONOSCOPY 09/15/2013 COLONOSCOPY 09/2018 COLONOSCOPY 04/13/2024 rempved 6 polyps LUMBAR SPINE SURGERY Surgery, lumbar spine NECK SURGERY 06/2008 4 discs replaced in neck, Dr. Srinath Tovar NECK SURGERY november 8 screws in neck NECK SURGERY 11/24/2023 Pt had plate and 8 screws added OTHER SURGICAL HISTORY Fall: Medical Management REDUCTION MAMMAPLASTY Bilateral 2009 SHOULDER SURGERY Right 02/10/2024 Pt had melanoma cut out. TONSILLECTOMY tonsillectomy TOTAL HIP ARTHROPLASTY Left 02/05/2016 Dr. David Sykes, [facility] - conversion of previous hip arthroplasty left hip: Conversion of Arthroplasty left hip TOTAL KNEE ARTHROPLASTY Left 09/27/2005 Left TKA - Dr. Cole Beckham TOTAL KNEE ARTHROPLASTY Right 08/27/2001 Right TKA - Dr. Kuldeep Basurto Family History: Family History Problem Relation Age of Onset Diabetes Mother Diabetes mellitus; Hypertension Mother Hypertension; Heart disease Father Heart disease; Heart failure Father CHF; Cause of : CHF Colon cancer Father Diabetes Brother Diabetes mellitus; Cancer Brother Lymphoma Brother Cancer -lymphoma; Stroke Brother Hypertension Brother Breast cancer Neg Hx Ovarian cancer Neg Hx Thyroid cancer Neg Hx Social History: Social History Tobacco Use Smoking status: Never Passive exposure: Past Smokeless tobacco: Never Substance and Sexual Activity Drug use: Never Sexual activity: Defer Alcohol Use: Not At Risk (04/14/2024) AUDIT-C Frequency of Alcohol Consumption: Never Average Number of Drinks: Patient does not drink Frequency of Binge Drinking: Never Allergies: No Known Allergies Medications: Current Outpatient Medications: acetaminophen 500 mg capsule, Take 2 capsules (1,000 mg total) by mouth every 6 (six) hours, Disp: , Rfl: albuterol HFA (PROVENTIL HFA,VENTOLIN HFA,PROAIR HFA) 90 mcg/actuation inhaler, Inhale 2 puffs every 6 (six) hours as needed for wheezing, Disp: , Rfl: apixaban (ELIQUIS) 5 mg tablet, Take 1 tablet (5 mg total) by mouth 2 (two) times a day Do not restart eliquis until two weeks after surgery (12/07), Disp: , Rfl: aspirin 81 mg enteric coated tablet, Take 1 tablet (81 mg total) by mouth electro mechanical technologist before breakfast Do not restart until 2 weeks after surgery (12/07), Disp: , Rfl: blood glucose diagnostic (Contour Next Test Strips) strip, TEST BLOOD SUGAR 3 TIMES A DAY AND WILL MONTIOR RESPONSE. DX: E11.22., Disp: 200 strip, Rfl: 1 blood-glucose meter (CONTOUR NEXT USB METER) [facility], test as directed, Disp: 1 each, Rfl: 0 calcium carbonate-vitamin D3 1,500 mg (600 mg elemental)-500 unit capsule, Take by mouth, Disp: , Rfl: clobetasoL (TEMOVATE) 0.05 % cream, PLEASE SEE ATTACHED FOR DETAILED DIRECTIONS, Disp: , Rfl: cloNIDine (CATAPRES) 0.1 mg tablet, TAKE 1/2 TABLET BY MOUTH TWICE DAILY FOR HYPERTENSION, Disp: 90tablet, Rfl: 6 docusate sodium (COLACE) 100 mg capsule, Take 1 capsule (100 mg total) by mouth 3 (three) times a day as needed for constipation, Disp: , Rfl: finasteride (PROSCAR) 5 mg tablet, Take 1 tablet (5 mg total) by mouth daily Has not started, Disp:, Rfl: fluticasone propionate (FLONASE) 50 mcg/actuation nasal spray, Administer 2 sprays into each nostril daily, Disp: , Rfl: fluticasone propionate (FLOVENT HFA) 110 mcg/actuation inhaler, INHALE 2 PUFFS EVERY MORNING, Disp:, Rfl: furosemide (LASIX) 20 mg tablet, TAKE 2 TABLETS (40 MG TOTAL) BY MOUTH DAILY., Disp: 180 tablet, Rfl: 4 gabapentin (NEURONTIN) 100 mg capsule, Take 1 capsule (100 mg total) by mouth 4 (four) times a day Patient takes 1 capsule TID and then 2 capsules at bedtime., Disp: , Rfl: HYDROcodone-acetaminophen (NORCO) 5-325 mg per tablet, Take 1 tablet by mouth every 6 (six) hours as needed for pain, Disp: 60 tablet, Rfl: 0 insulin aspart (NovoLOG) 100 unit/mL (3 mL) pen for injection, Inject 15 Units under the skin 3 (three) times a day before meals, Disp: 84 mL, Rfl: 2 lancets (MICROLET LANCET) misc, test by fingerstick route 3 times daily, Disp: 300 each, Rfl: 3 losartan (COZAAR) 25 mg tablet, Take 0.5 tablets (12.5 mg total) by mouth daily Patient has not started yet, wanted to talk to , Disp: 90 tablet, Rfl: 0 montelukast (SINGULAIR) 10 mg tablet, TAKE 1 TABLET BY MOUTH AT BEDTIME FOR ALLERGIES, Disp: 90 tablet, Rfl: 5 Nyamyc powder, Apply topically electro mechanical technologist before breakfast, Disp: , Rfl: omeprazole (PriLOSEC) 20 mg capsule, TAKE 1 CAPSUEL BY MOUTH TWICE DAILY FOR GERD, Disp: 180 capsule, Rfl: 5 pen needle, diabetic (BD Ultra-Fine Mini Pen Needle) 31 gauge x 3/16 needle, 1 NEEDLE DIRECTED (4 PER DAY), Disp: 300 each, Rfl: 3 polyethylene glycol (MIRALAX) 17 gram packet, Take 1 packet (17 g total) by mouth as needed for constipation, Disp: , Rfl: semaglutide (Ozempic) 2 mg/dose (8 mg/3 mL) pen injector injection, INJECT 2 MG SUBCUTANEOUSLY ONE TIME PER WEEK, Disp: 3 mL, Rfl: 0 SEMGLEE-yfgn 100 unit/mL (3 mL) pen for injection, Inject 20 Units under the skin nightly, Disp: , Rfl: senna-docusate (PERICOLACE) 8.6-50 mg, Take 2 tablets by mouth 2 (two) times a day, Disp: , Rfl: simvastatin (ZOCOR) 40 mg tablet, TAKE 1 TABLET BY MOUTH AT BEDTIME, Disp: 90 tablet, Rfl: 5 naloxone (NARCAN) 4 mg/actuation spray,non-aerosol, Administer 1 spray into affected nostril(s) as needed for opioid reversal (Patient not taking: Reported on 05/12/2024), Disp: 1 each, Rfl: 0 ondansetron ODT (ZOFRAN-ODT) 8 mg disintegrating tablet, Take 1 tablet (8 mg total) by mouth every 8 (eight) hours as needed for nausea or vomiting (Patient not taking: Reported on 05/12/2024), Disp:12 tablet, Rfl: 1 triamcinolone (KENALOG) 0.1 % cream, Apply topically legs (Patient not taking: Reported on 05/12/2024), Disp: , Rfl: Depression Screen: PHQ Screening Over the past 2 weeks, how often have you been bothered by any of the following problems? Little Interest or Pleasure in Doing Things: Not at all Feeling Down, Depressed, or Hopeless: Not at all PHQ-2 Total Score (If total score is 3 or more points, staff should administer the PHQ-9): 0 Vitals: Vitals BP 124/80 (BP Location: Left arm, Patient Position: Sitting) Pulse 71 Temp 36.8 ??C (98.3 ??F) (Oral) Resp 18 Ht 167.6 cm (5' 6 ) Wt 98.4 kg (217 lb) SpO2 99% BMI 35.02 kg/m?? Body mass index is 35.02 kg/m??. Exam: Physical Exam Vitals reviewed. Constitutional: General: She is not in acute distress. Appearance: She is obese. HENT: Mouth/Throat: Pharynx: No oropharyngeal exudate. Eyes: General: No scleral icterus. Neck: Vascular: No JVD. Cardiovascular: Rate and Rhythm: Normal rate and regular rhythm. Heart sounds: No murmur heard. Pulmonary: Effort: Pulmonary effort is normal. No respiratory distress. Breath sounds: Normal breath sounds. Abdominal: General: Bowel sounds are normal. Palpations: Abdomen is soft. Tenderness: There is no right CVA tenderness or left CVA tenderness. Musculoskeletal: Cervical back: Neck supple. Right lower leg: Edema present. Left lower leg: Edema present. Lymphadenopathy: Cervical: No cervical adenopathy. Skin: Findings: No erythema. Neurological: Mental Status: She is alert and oriented to person, place, and time. Motor: Weakness present. Gait: Gait abnormal. Psychiatric: Mood and Affect: Mood and affect normal. Thought Content: Thought content normal. Care Team Providers: Patient Care Team: Lalito England MD as PCP - General Primary Pharmacy/DME suppliers: [facility] [id number] [place] [address] [address] I reviewed the patient???s home and community safety, including driving, and made the following recommendations Patient note driving at present time. . Detection of Cognitive Impairment: The patient does not have cognitive impairment based on direct observation, discussion with patientor family, or review of medical records. Health Maintenance: Health Maintenance Topics with due status: Overdue Topic Date Due DTaP/Tdap/Td Vaccine Never done Zoster Vaccine Never done Osteoporosis Screening-Bone Density Scan 05/23/2023 Dilated Eye Exam 10/15/2023 Covid-19 Vaccine 03/14/2024 Health Maintenance Topics with due status: Due Soon Topic Date Due Well Visit 65+ 05/26/2024 Health Maintenance Topics with due status: Not Due Topic Last Completion Date Foot Exam 05/26/2023 Lipid Panel 09/17/2023 Albumin Creatinine Ratio, Urine 02/09/2024 Hemoglobin A1C 02/09/2024 Colon Cancer Screening-Colonoscopy 04/13/2024 eGFR 04/22/2024 Fall Risk Assessment 05/12/2024 Depression Screening 05/12/2024 Health Maintenance Topics with due status: Completed Topic Last Completion Date Hepatitis C Screening 12/13/2016 Pneumococcal vaccine 65+ 01/22/2022 Influenza Vaccine 05/12/2024 Health Maintenance Topics with due status: Discontinued Topic Date Due Colon Cancer Screening-DNA Stool Discontinued Colon Cancer Screening-CT Colonography Discontinued Colon Cancer Screening-FIT Discontinued Breast Cancer Screening-Mammogram Discontinued Colon Cancer Screening-Sigmoidoscopy Discontinued Counseling and Referral of Preventative Services: Opioid Use: Yes; Patient currently has an active prescription for opioid medication. I reviewed patient's use of this medication, risk for Opioid Use Disorder, the intensity of pain and review of current treatment plan, and potential benefit of other non-opioid pain therapies. Lifestyle Recommendations Increase Physical Activity and Improve Diet Advanced Directive Durable Power of Parking Lot Supervisor: No Living Will: No Assessment and Plan: Diagnoses and all orders for this visit: Flu vaccine need (Primary) Assessment & Plan: Updated Orders: - Flu Vaccine High Dose Tri PF 65y+ IM - Fluzone High Dose CKD (chronic kidney disease) stage 4, GFR 15-29 ml/min ([facility]) ([facility]) Assessment & Plan: Contniue f/u with nephrology. WIll ontior resopnse to onoging losartan and reviewed blood pressure management recommendations. Hypertension associated with diabetes ([facility]) Assessment & Plan: Reviewed use of losartan and clonidine with target blood pressure goals reviewed. No chest pains/pressures/palpitations. Type 2 diabetes mellitus with hyperlipidemia ([facility]) Assessment & Plan: Continue statin medication and will follow response. Age-related osteoporosis without current pathological fracture Assessment & Plan: Reivewed calcium and vitamin D supplementaiton. Montior erspnose. Gastro-esophageal reflux disease without esophagitis Assessment & Plan: NO dsyphagia. Continue on PPI and will fercholorazalia sponse. Degenerative lumbar spinal stenosis Assessment & Plan: Continue f/u with Anson Jeffries and team at [facility] spine for discussion of possible intervention. Degenerative cervical spinal stenosis Assessment & Plan: Stable on f/u with orthopedics and spine team. WIll montior ersponse. Type 2 diabetes mellitus with diabetic neuropathy, with long-term current use of insulin ([facility]) Assessment & Plan: Reviewed skin care and will follwor esponse. Reivewed aggressive glycemic cotnrol. 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 ([facility]) Assessment & Plan: Continue f/u, currnetly holding on adjuvant therapy with no fidning on current exam or imaging of active disease. 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 History of decubitus ulcer Assessment & Plan: No recurrence. Continue to be more mobile in home setting. Reviewed off loading. Annual physical exam Assessment & Plan: Focus of exam is preventative in nature. R eviweed age and comrobid appropriate screenigns and willcontinue to follow response. No change at the presne time. BMI 35.0-35.9,adult Assessment & Plan: Encoruage 150min/week aerobic exerise. Severe obesity (BMI 35.0-39.9) with comorbidity (HCC) Assessment & Plan: Enourag ehealthy food chocies and target 150min/week aerobic exercise. Patient here for annual Medicare wellness visit and for review of complete medical problem list. All the elements of the plan were completed as outlined by CMS. A copy of the prevention plan was given to the patient. I reviewed Medicare Wellness Questionnaire (other physicians involved in care, depression screen, advanced directives), cognitive/memory, and functional assessment. I reviewed and updated the complete problem list, medication list, family history, and immunization records with the patient. I provided preventive counseling and early detection interventions to the patient through health maintenance update and summary of today's office visit. Lalito England MD Answers submitted by the patient for this visit: High Blood Pressure Questionnaire (Submitted on 05/08/2024) Chief Complaint: Hypertension Onset: more than 1 year ago Progression since onset: resolved Condition status: controlled anxiety: No blurred vision: No chest pain: No headaches: No malaise/fatigue: No neck pain: No orthopnea: No palpitations: No peripheral edema: Yes PND: No shortness of breath: No sweats: No Agents associated with hypertension: no associated agents CAD risks: diabetes mellitus, dyslipidemia, family history, obesity, sedentary lifestyle Compliance problems: exercise documented in this encounter Miscellaneous Notes * Assessment & Plan Note - Lalito England MD - 05/12/2024 10:21 AM CDT Associated Problem(s): BMI 35.0-35.9,adult Encoruage 150min/week aerobic exerise. * Assessment & Plan Note - Lalito England MD - 05/12/2024 10:21 AM CDT Associated Problem(s): Annual physical exam Focus of exam is preventative in nature. R eviweed age and comrobid appropriate screenigns and willcontinue to follow response. No change at the presne time. * Assessment & Plan Note - Lalito England MD - 05/12/2024 10:21 AM CDT Associated Problem(s): Severe obesity (BMI 35.0-39.9) with comorbidity (HCC) Enourag ehealthy food chocies and target 150min/week aerobic exercise. * Assessment & Plan Note - Lalito England MD - 05/12/2024 10:20 AM CDT Associated Problem(s): Flu vaccine need Updated * Assessment & Plan Note - Lalito England MD - 05/12/2024 10:20 AM CDT Associated Problem(s): History of decubitus ulcer No recurrence. Continue to be more mobile in home setting. Reviewed off loading. 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 * Assessment & Plan Note - Lalito England MD - 05/12/2024 10:20 AM CDT Associated Problem(s): 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 (HCC) Continue f/u, currnetly holding on adjuvant therapy with no fidning on current exam or imaging of active disease. * Assessment & Plan Note - Lalito England MD - 05/12/2024 10:19 AM CDT Associated Problem(s): Type 2 diabetes mellitus with diabetic neuropathy, unspecified (HCC) Reviewed skin care and will follwor esponse. Reivewed aggressive glycemic cotnrol. * Assessment & Plan Note - Lalito England MD - 05/12/2024 10:19 AM CDT Associated Problem(s): Gastro-esophageal reflux disease without esophagitis NO dsyphagia. Continue on PPI and will mackwlorazalia sponse. * Assessment & Plan Note - Lalito England MD - 05/12/2024 10:19 AM CDT Associated Problem(s): Age-related osteoporosis without current pathological fracture Reivewed calcium and vitamin D supplementaiton. Montior erspnose. * Assessment & Plan Note - Lalito England MD - 05/12/2024 10:18 AM CDT Associated Problem(s): Type 2 diabetes mellitus with hyperlipidemia (HCC) Continue statin medication and will follow response. * Assessment & Plan Note - Lalito England MD - 05/12/2024 10:18 AM CDT Associated Problem(s): Degenerative cervical spinal stenosis Stable on f/u with orthopedics and spine team. WIll montior ersponse. * Assessment & Plan Note - Lalito England MD - 05/12/2024 10:18 AM CDT Associated Problem(s): CKD (chronic kidney disease) stage 4, GFR 15-29 ml/min (CMS/HCC) ([facility]) Contniue f/u with nephrology. WIll ontior resopnse to onoging losartan and reviewed blood pressure management recommendations. * Assessment & Plan Note - Lalito England MD - 05/12/2024 10:17 AM CDT Associated Problem(s): Degenerative lumbar spinal stenosis Continue f/u with Anson Jeffries and team at [facility] spine for discussion of possible intervention. * Assessment & Plan Note - Lalito England MD - 05/12/2024 10:17 AM CDT Associated Problem(s): Hypertension associated with diabetes ([facility]) Reviewed use of losartan and clonidine with target blood pressure goals reviewed. No chest pains/pressures/palpitations. documented in this encounter Plan of Treatment Not on file documented as of this encounter Visit Diagnoses Diagnosis Flu vaccine need- Primary CKD (chronic kidney disease) stage 4, GFR 15-29 ml/min (CMS/HCC) (HCC) Chronic kidney disease, Stage IV (severe) Hypertension associated with diabetes (HCC) Unspecified essential hypertension Type 2 diabetes mellitus with hyperlipidemia (HCC) Age-related osteoporosis without current pathological fracture Gastro-esophageal reflux disease without esophagitis Degenerative lumbar spinal stenosis Spinal stenosis of lumbar region Degenerative cervical spinal stenosis Spinal stenosis in cervical region Type 2 diabetes mellitus with diabetic neuropathy, with long-term current use of insulin (HCC) 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 (HCC) 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) (HCC) Unspecified hypertensive heart and kidney disease with heart failure and with chronic kidney disease stage I through stage IV, or unspecified History of decubitus ulcer Annual physical exam Routine general medical examination at a health care facility BMI 35.0-35.9,adult Severe obesity (BMI 35.0-39.9) with comorbidity (HCC) documented in this encounter Orders Immunization/Injection Count Last Ordered Date First Ordered Date FLU VACCINE HD TRI P F (65Y+) IM - FLUZONE HIGH DOSE 1 05/12/2024 documented in this encounter Care Teams [employer] Relationship Specialty Start Date End Date Lalito England MD [address] [place] [address] PCP - General 08/03/19 documented as of this encounter
--- OUTSIDE RECORDS SUMMARY | 2024-07-11 22:32 | XMS_ITS | Referral Summary ---
Author Organization [facility] Address [address] [place] [address] Care Team Providers Care Welfare Visitor Name Role Phone Tereso England MD Primary Care Provider [phone] Encounters Date Type Department Care Team Description 07/04/2024 Orders Only [facility] Health Information Management [address] [place] [id number] Scanning, Provider 07/02/2024 Nurse Triage [facility] [address] [phone] Tereso England MD 07/02/2024 Telephone [facility] [address] [phone] Tereso England MD Symptom Based Call 06/24/2024 2:35 PM MANAGER EMERGENCY - 06/24/2024 11:59 PM MANAGER EMERGENCY Hospital Encounter [address] [address] Degenerative cervical spinal stenosis Discharge Disposition: Discharge to home or self care 06/24/2024 2:35 PM MANAGER EMERGENCY - 06/24/2024 11:59 PM MANAGER EMERGENCY Hospital Encounter [address] [address] Degenerative cervical spinal stenosis Discharge Disposition: Discharge to home or self care 06/24/2024 2:35 PM MANAGER EMERGENCY - 06/24/2024 11:59 PM MANAGER EMERGENCY Hospital Encounter [address] [address] Other osteoporosis, unspecified pathological fracture presence Discharge Disposition: Discharge to home or self care 06/23/2024 Telephone [facility] [address] [place] [address] Miya Quevedo 06/21/2024 Telephone [facility] Organization [address] [place] [address] Cielo Stewart MA [facility] 06/21/2024 1:52 PM MANAGER EMERGENCY - 06/21/2024 11:59 PM MANAGER EMERGENCY Hospital Encounter [facility] [address] [place] [address] Acute right-sided low back pain with sciatica, sciatica laterality unspecified Discharge Disposition: Discharge to home or self care 06/21/2024 1:52 PM MANAGER EMERGENCY - 06/21/2024 11:59 PM MANAGER EMERGENCY Hospital Encounter [facility] [address] [place] [address] Acute right-sided low back pain with sciatica, sciatica laterality unspecified Discharge Disposition: Discharge to home or self care 06/08/2024 Telephone [facility] [address] [phone] Tereso England MD Referral Request 06/01/2024 2:17 PM MANAGER EMERGENCY - 06/01/2024 11:59 PM MANAGER EMERGENCY Hospital Encounter [address] [address] Melanoma of right upper arm (HCC) Discharge Disposition: Discharge to home or self care 05/26/2024 1:30 PM MANAGER EMERGENCY Office Visit [facility] [address] [phone] Sarah Carter NP Type 2 diabetes mellitus with hyperlipidemia (HCC) (Primary Dx); Hypertension associated with diabetes (HCC); Annual physical exam; Degenerative lumbar spinal stenosis; Stage II pressure ulcer of left buttock (HCC); Class 1 obesity due to excess calories with serious comorbidity and body mass index (BMI) of 34.0 to 34.9 in adult 05/24/2024 Telephone [facility] [address] [phone] Yola Oliver MA Labs Needed for Appointment 05/19/2024 Telephone [facility] [address] [phone] Tereso England MD 05/13/2024 Telephone [facility] [address] [phone] Tereso England MD Medical Question/Miscellaneou s 05/12/2024 9:30 AM CDT Office Visit [facility] [address] [phone] Tereso England MD Flu vaccine need (Primary Dx); CKD (chronic kidney disease) stage 4, GFR 15-29 ml/min (CMS/HCC) (HCC); Hypertension associated with diabetes (HCC); Type 2 [...] renal disease with congestive heart failure (CMS/HCC) (HCC); History of decubitus ulcer; Annual physical exam; BMI 35.0-35.9,adult; Severe obesity (BMI 35.0-39.9) with comorbidity (HCC) 05/10/2024 11:45 AM CDT Office Visit [facility] [address] [place] [address] [facility] [address] [place] [phone] Yaniv Callaway MD Melanoma of right upper arm (HCC) 05/07/2024 Telephone [facility] [address] [place] [address] Office [facility] [address] [place] [address] [place] [phone] Osiris Rodriguez, CLT 05/04/2024 Telephone [facility] [address] [phone] Tereso England MD Referral Request 05/03/2024 Telephone [facility] [address] [phone] Ольга Bacon MA Chart Review (Med adh) 05/03/[address] [facility] [place] [facility] [address] [facility] [address] [place] [address] [place] [phone] Audrey Mcqueen, CLT 04/28/2024 Telephone [facility] [address] [phone] Tereso England MD Referral Request 04/28/2024 11:08 AM CDT - 04/28/2024 11:59 PM CDT Hospital Encounter [facility] Building [address] [place] [address] Melanoma of right upper arm (HCC) Discharge Disposition: Discharge to home or self care 04/27/[address] [facility] Neurosurgery [address] [place] [address] 4 [address] [place] [address] Anson Jeffries NP 04/26/[address] [facility] Neurosurgery [address] [place] [address] Office [facility] [address] [place] [address] Anson Jeffries, MARKOS Degenerative cervical spinal stenosis (Primary Dx); Other osteoporosis, unspecified pathological fracture presence; Acute right-sided low back pain with sciatica, sciatica laterality unspecified 2024 Telephone [facility] Accountable Care Organization [address] [place] [address] Delisa Miranda MA [facility] 2024 2:00 PM CDT - 2024 11:59 PM CDT Hospital Encounter [facility] [address] [place] [address] [address] [place] [address] Degenerative cervical spinal stenosis Discharge Disposition: Discharge to home or self care 2024 2:30 PM CDT Office Visit [facility] Neurosurgery [address] [place] [address] 4 [address] [place] [address] Anson Jeffries [employer]ITY LEAD Degenerative cervical spinal stenosis (Primary Dx) 04/22/2024 Telephone [facility] [address] [phone] Tereso England MD Referral Request 04/22/2024 Telephone [facility] [address] [place] [address] Tereso England MD Referral Request 04/22/2024 1:00 PM CDT Lab [facility] 4 [facility] [address] [place] [address] 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 (HCC) (Primary Dx) 04/22/2024 1:30 PM CDT Office Visit [facility] Oncology 4 [facility] Office [address]ld[address] [place] [address] [place] [address] Yaniv Callaway MD Melanoma of right upper arm (HCC); 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) (HCC) 04/20/2024 Orders Only [facility] Surgery 2 [facility] Medical Bld[address] [place] [address] Olive Purcell RN Melanoma of right upper arm (HCC) (Primary Dx) 04/20/2024 6:49 AM CDT - 04/20/2024 11:59 PM CDT Hospital Encounter [address] [address] Melanoma of right upper arm (HCC) Discharge Disposition: Discharge to home or self care 04/20/2024 6:49 AM CDT - 04/20/2024 11:59 PM CDT Hospital Encounter [address] [address] Discharge Disposition: Discharge to home or self care 04/20/2024 11:15 AM CDT Anesthesia Event [facility] Operating Room [address] [place] [address] Clayton Gonzales MD Reynolds, Rick Castillo MD 04/20/2024 6:47 AM CDT - 04/20/2024 1:00 PM CDT Hospital Encounter [facility] Operating Room [address] [place] [address] Kashif Kohler MD Discharge Disposition: Discharge to home or self care 04/13/2024 Telephone [facility] [address] [phone] Tereso England MD Authorization/Certifi cation 04/13/2024 12:54 PM CDT Anesthesia Event [facility] [address] [place] [address] Clayton Gonzales MD 04/13/2024 Telephone [facility] [address] [place] [address] Eva Arnold RN 04/13/2024 12:25 PM CDT - 04/13/2024 12:55 PM CDT Surgery [address] [address] Karlene Ramirez MD COLON REMOVAL SNARE 04/13/2024 11:20 AM CDT - 04/13/2024 2:49 PM CDT Hospital Encounter [address] [address] Karlene Ramirez MD Family history of colon cancer in father; Encounter for screening colonoscopy; Adenomatous polyp of colon, unspecified part of colon Discharge Disposition: Discharge to home or self care 04/12/[address] [facility] Neurosurgery [address] [facility] Building [address] [place] [address] Anson Jeffries NP Degenerative cervical spinal stenosis (Primary Dx) 04/12/[address] [facility] Physicians [facility] Surgery 2 [facility] [address] [place] [address] Sofía Roth RMA Melanoma of right upper arm (HCC) (Primary Dx) from Last 3 Months Allergies No known active allergies Medications blood-glucose meter (CONTOUR NEXT USB METER) misc test as directed 1 each 0 014 Active lancets (MICROLET LANCET) misc test by fingerstick route 3 times daily 300 each 3 016 Active naloxone (NARCAN) 4 mg/actuation spray,non-aeroso l Administer 1 spray into affected nostril(s) as needed for opioid reversal 1 each 022 Active insulin aspart (NovoLOG) 100 unit/mL (3 mL) pen for injectionIndicat ions:Controlled type 2 diabetes mellitus with diabetic polyneuropathy, without long-term current use of insulin ([facility]) Inject 15 Units under the skin 3 (three) times a day before meals 84 mL 2 Active simvastatin (ZOCOR) 40 mg tabletIndication s:Controlled type 2 diabetes mellitus with diabetic polyneuropathy, without long-term current use of insulin ([facility]) TAKE 1 TABLET BY MOUTH AT BEDTIME 90 tablet 5 023 Active montelukast (SINGULAIR) 10 mg tablet TAKE 1 TABLET BY MOUTH AT BEDTIME FOR ALLERGIES 90 tablet 5 023 Active cloNIDine (CATAPRES) 0.1 mg tabletIndication s:Hypertension associated with type 2 diabetes mellitus (HCC) TAKE 1/2 TABLET BY MOUTH TWICE DAILY FOR HYPERTENSION 90 tablet 6 023 Active blood glucose diagnostic (Contour Next Test Strips) strip TEST BLOOD SUGAR 3 TIMES A DAY AND WILL MONTIOR RESPONSE. DX: E11.22. 200 strip 1 Active finasteride (PROSCAR) 5 mg tablet Take 1 tablet (5 mg total) by mouth daily Has not started Active SEMGLEE-yfgn 100 unit/mL (3 mL) pen for injection Inject 20 Units under the skin nightly Active triamcinolone (KENALOG) 0.1 % cream Apply topically legs Active docusate sodium (COLACE) 100 mg capsule Take 1 capsule (100 mg total) by mouth 3 (three) times a day as needed for constipation Active apixaban (ELIQUIS) 5 mg tablet Take 1 tablet (5 mg total) by mouth 2 (two) times a day Do not restart eliquis until two weeks after surgery (12/07) Active aspirin 81 mg enteric coated tabletIndication s:prevention of thrombosis Take 1 tablet (81 mg total) by mouth throw out clerk before breakfast Do not restart until 2 weeks after surgery (12/07) Active acetaminophen 500 mg capsule Take 2 capsules (1,000 mg total) by mouth every 6 (six) hours Active senna-docusate (PERICOLACE) 8.6-50 mgIndications:co nstipation Take 2 tablets by mouth 2 (two) times a day Active pen needle, diabetic (BD Ultra-Fine Mini Pen Needle) 31 gauge x /16 needle 1 NEEDLE DIRECTED (4 PER DAY) 300 each 3 Active losartan (COZAAR) 25 mg tablet Take 0.5 tablets (12.5 mg total) by mouth daily Patient has not started yet, wanted to talk to drRamo 90 tablet Active fluticasone propionate (FLOVENT HFA) 110 mcg/actuation inhaler INHALE 2 PUFFS EVERY MORNING Active albuterol HFA (PROVENTIL HFA,VENTOLIN HFA,PROAIR HFA) 90 mcg/actuation inhaler Inhale 2 puffs every 6 (six) hours as needed for wheezing Active semaglutide (Ozempic) 2 mg/dose (8 mg/3 mL) pen injector injection INJECT 2 MG SUBCUTANEOUSLY ONE TIME PER WEEK 3 mL Active furosemide (LASIX) 20 mg tablet TAKE 2 TABLETS (40 MG TOTAL) BY MOUTH DAILY. 180 tablet 4 024 2024 Active calcium carbonate-vitami n D3 1,500 mg (600 mg elemental)-500 unit capsule Take by mouth Act ziyad gabapentin (NEURONTIN) 100 mg capsule Take 1 capsule (100 mg total) by mouth 4 (four) times a day Patient takes 1 capsule TID and then 2 capsules at bedtime. Active polyethylene glycol (MIRALAX) 17 gram packetIndication s:constipation Take 1 packet (17 g total) by mouth as needed for constipation Active ondansetron ODT (ZOFRAN-ODT) 8 mg disintegrating tabletIndication s:Prevention of Post-Operative Nausea and Vomiting Take 1 tablet (8 mg total) by mouth every 8 (eight) hours as needed for nausea or vomiting 12 tablet 1 Active Additional Information Patient not taking.Reported on 05/12/2024 clobetasoL (TEMOVATE) 0.05 % cream PLEASE SEE ATTACHED FOR DETAILED DIRECTIONS Active fluticasone propionate (FLONASE) 50 mcg/actuation nasal sprayIndications :Allergic rhinitis due to pollen SPRAY 2 SPRAYS INTO EACH NOSTRIL EVERY DAY 48 mL 1 Active nystatin powder Apply topically 4 (four) times a day Active blood-glucose sensor device Use as directed every 14 days to monitor blood sugar. Dx: Type 2 insulin requiring DM. 5 each 2 Active HYDROcodone-acet aminophen (NORCO) 5-325 mg per tabletIndication s:Pain Take 1 tablet by mouth every 6 (six) hours as needed for pain (Dx: DDD lumbar spine/spinal stenosis) 60 tablet Active omeprazole (PriLOSEC) 20 mg capsule TAKE 1 CAPSULE BY MOUTH TWICE DAILY FOR GERD 180 capsule 5 024 Active omeprazole (PriLOSEC) 20 mg capsule TAKE 1 CAPSUEL BY MOUTH TWICE DAILY FOR GERD 180 capsule 5 023 2023 Discontinued HYDROcodone-acet aminophen (NORCO) 5-325 mg per tabletIndication s:Pain Take 1 tablet by mouth every 6 (six) hours as needed for pain (Dx: DDD lumbar spine/spinal stenosis) 60 tablet 024 2023 Discontinued(R eorder) Active Problems Problem Noted Date Diagnosed Date Stage II pressure ulcer of left buttock 05/26/20 24 Assessment & Plan (05/26/2024 2:40 PM MANAGER EMERGENCY): Stable. Continue use of doughnut especially when in wheelchair. Continue with skin protectant. Continue monitoring. Red flags reviewed. History of decubitus ulcer 05/12/2024 Assessment & Plan (05/12/2024 10:20 AM CDT): No recurrence. Continue to be more mobile in home setting. Reviewed off loading. Flu vaccine need 05/12/2024 Assessment & Plan (05/12/2024 10:20 AM CDT): Updated Annual physical exam 05/12/2024 Assessment & Plan (05/26/2024 2:40 PM MANAGER EMERGENCY): Visit preventive in nature. We reviewed medications, chronic conditions, risk factors, lifestyle recommendations. Reviewed immunization recommendations. Follow-up in 6 months for chronic conditions and 1 year for annual wellness. Assessment & Plan (05/12/2024 10:21 AM CDT): Focus of exam is preventative in nature. R eviweed age and comrobid appropriate screenigns and will continue to follow response. No change at the presne time. BMI 35.0-35.9,adult 05/12/2024 Assessment & Plan (05/12/2024 10:21 AM CDT): Encoruage 150min/week aerobic exerise. Controlled type 2 diabetes m cuong with hyperglycemia, with long-term current use of insulin ([facility]) 02/09/2024 Assessment & Plan (02/09/2024 9:48 AM CDT): Continue to montior A1c and will follow resopnse. CKD stage 3b, GFR 30-44 ml/min 02/09/2024 Assessment & Plan (02/09/2024 9:48 AM CDT): Reviewed aggressive blood pressure and glycmeic control. BMI 34.0-34.9,adult 02/09/2024 Assessment & Plan (02/09/2024 9:48 AM CDT): Encourage healthy food chcoies and will monitor response. Obesity (BMI 30.0-34.9) 02/09/2024 Assessment & Plan (02/09/2024 9:49 AM CDT): As above. 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) 01/06/2024 Assessment & Plan (05/12/2024 10:20 AM CDT): Reivewe fluid overload and will motniro erpsonse. Secondary hyperparathyroidism of renal origin Cervical stenosis of spine 11/24/2023 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 11/10/2023 Cancer Staging:Clinical stage from 09/26/2023:Stage IIA(cT2b, cN0, cM0) - Signed by Yaniv Callaway MD on 04/22/2024 Assessment & Plan (05/12/2024 10:20 AM CDT): Continue f/u, currnetly holding on adjuvant therapy with no fidning on current exam or imaging of active disease. BMI 39.0-39.9,adult 10/05/2023 Assessment & Plan (10/05/2023 7:04 AM CDT): Reviewed import of weight loss continues on semaglutide. Reviewed healthy food choices during period of limited aerobic activity. Chronic anticoagulation 10/05/2023 Assessment & Plan (10/05/2023 7:04 AM CDT): Patient continues on Eliquis for chronic anticoagulation. Patient with history of recurrent DVT. Patient denies any active bleeding or epistaxis. Family history of colon cancer in father 023 Encounter for screening colonoscopy 05/27/2023 Personal history of COVID-19 02/18/2022 Acute embolism and thrombosis of right femoral v ein 01/18/2022 Age-related osteoporosis wit delfinout current pathological fracture 01/18/2022 Assessment & Plan (05/12/2024 10:19 AM CDT): Reivewed calcium and vitamin D supplementaiton. Montior erspnose. Difficulty in walking, not elsewhere classified 01/18/2022 Gastro-esophageal reflux disease without esophag itis 01/18/2022 Assessment & Plan (05/12/2024 10:19 AM CDT): NO dsyphagia. Continue on PPI and will folwlore andie. Hypertension secondary to endocrine disorders Spinal stenosis, lumbar cosmo on without neurogenic claudication 01/18/2022 Assessment & Plan (02/09/2024 9:48 AM CDT): Looking forward to continuing therapy at home to increase low back pain and mobility. Type 2 diabetes mellitus wit h diabetic neuropathy, unspecified 01/18/2022 Assessment & Plan (05/12/2024 10:19 AM CDT): Reviewed skin care and will mary mathis. Reivewed aggressive glycemic cotnrol. Assessment & Plan (10/05/2023 7:02 AM CDT): Continues on gabapentin and chronic opioid therapy. Patient denies any analgesic complications compliant with medication regimen. Unsteadiness on feet 01/18/2022 Type 2 diabetes mellitus with hyperlipidemia 01/2022 Assessment & Plan (05/26/2024 2:39 PM MANAGER EMERGENCY): Lipid panel ordered. Continue with simvastatin. Will continue to monitor. Assessment & Plan (05/12/2024 10:18 AM CDT): Continue statin medication and will follow response. Assessment & Plan (02/09/2024 9:48 AM CDT): COntinues on simvastaitn and will monitor ersponse. No new myalgias/arthralgias. Assessment & Plan (10/05/2023 7:03 AM CDT): Patient continues on simvastatin for secondary prevention in coronary artery disease equivalent patient. Chronic back pain 01/17/2022 Weakness of both lower extremities 01/16/2022 Lumbar radiculopathy 12/06/2021 Sacroiliitis 09/07/2021 Cervicalgia 09/07/2021 Low back pain 09/07/2021 Insomnia secondary to chronic pain 09/07/2021 Degenerative cervical spinal stenosis 09/07/2021 Assessment & Plan (05/12/2024 10:18 AM CDT): Stable on f/u with orthopedics and spine team. WIll montior ersponse. Assessment & Plan (10/05/2023 7:02 AM CDT): Patient evaluated by Neurosurgery in for symptoms of cervical myelopathy recommending intervention. However this is predicated on lowering of A1c. We will continue follow-up with team. Degenerative disc disease, cervical 09/07/2021 CKD (chronic kidney disease) stage 4, GFR 15-29 ml/min ([facility]) 08/23/2021 Assessment & Plan (05/12/2024 10:18 AM CDT): Kalyanue f/u with nephrology. WIll ontior resopnse to onoging losartan and reviewed blood pressure management recommendations. Morbid (severe) obesity due to excess calories 0 08/22/2021 DDD (degenerative disc disease), lumbar 08/17/19 Degenerative lumbar spinal stenosis 08/17/2021 Assessment & Plan (05/26/2024 2:39 PM MANAGER EMERGENCY): Continue f/u with Anson Jeffries and team at [facility] spine for discussion of possible intervention. Will also place referral to [facility] to see if they can provide help with transportation. Assessment & Plan (05/12/2024 10:17 AM CDT): Continue f/u with Anson Jeffries and team at [facility] spine for discussion of possible intervention. Lumbar post-laminectomy syndrome 08/17/2021 Persistent vomiting 11/17/2018 Overview (11/17/2018): Added automatically from request for surgery [id number] Hx of colonic polyps 09/04/2018 Overview (09/04/2018): Added automatically from request for surgery [id number] Family hx of colon cancer 09/04/2018 Overview (09/04/2018): Added automatically from request for surgery [id number] Healthcare maintenance 12/27/2016 Medication management 12/27/2016 Idiopathic osteoporosis with pathological fractu re 08/14/2015 Overview (10/18/2016): Idiopathic osteoporosis with pathological fracture Arthralgia of hip 07/21/2015 Overview (10/18/2016): Hip pain Adenomatous polyp of colon 04/08/2015 Overview (10/18/2016): Adenomatous colonic polyps Sarcoidosis of lung 04/08/2015 Overview (10/18/2016): Sarcoidosis Fever 08/25/2014 Overview (10/18/2016): Fever Type 2 diabetes mellitus wit h stage 3 chronic kidney disease, with long-term current use of insulin 11/27/2013 Overview (10/16/2016): DMII WO CMP NT [facility] Assessment & Plan (02/09/2024 9:47 AM CDT): Reivewed blood sugar control and will montior erpsonse. Reivewd kidney disease and reviewed glycmeic control models. Assessment & Plan (10/05/2023 7:03 AM CDT): Stable at present time. No evidence of uremia. Patient counseled on avoidance of NSAIDs and nephrotoxic medications. Reviewed importance of aggressive glycemic and blood pressure control. Severe obesity (BMI 35.0-39.9) with comorbidity 11/27/2013 Overview (10/17/2016): OBESITY NOS Assessment & Plan (05/12/2024 10:21 AM CDT): Enourag ehealthy food chocies and target 150min/week aerobic exercise. Hyperlipidemia 04/01/2012 Overview (10/16/2016): Hyperlipidemia Disorder of peripheral nervous system 04/01/2012 Overview (10/17/2016): PN (peripheral neuropathy) Hypertension associated with diabetes 04/01/2012 Overview (10/17/2016): HTN (hypertension) Assessment & Plan (05/26/2024 2:38 PM MANAGER EMERGENCY): Normotensive. Continue clonidine, furosemide, losartan. Continue heart healthy diet. Will continue to monitor. Assessment & Plan (05/12/2024 10:17 AM CDT): Reviewed use of losartan and clonidine with target blood pressure goals reviewed. No chest pains/pressures/palpitations. Assessment & Plan (02/09/2024 9:47 AM CDT): Stable on the current reimgen. Will monitor respnose. Continues on losartan and will follow response. Assessment & Plan (10/05/2023 7:03 AM CDT): Reviewed blood pressure regimen and we will continue to follow no significant orthostasis at the present time. Reviewed importance of hydration. Resolved Problems Problem Noted Date Diagnosed Date Resolved Date Melanoma of right upper arm 10/27/2023 04/22/2024 Assessment & Plan (02/09/2024 9:46 AM CDT): Anticipating definitive excisional therapy with Dr. Kohler tomorrow at [facility]. Immunizations Name Administration Dates Next Due H1N1 All Forms 07/14/2009 Hep A, Adult 10/27/2008 Hep B Vaccine 10/27/2008 Influenza, Quadrivalent, Hig h Dose, Preservative Free, Intrr 03/28/2023,06/19/2021,04/18/2020 Influenza, Quadrivalent, Spl it, Preservative Free, Intramuscular 04/24/2022 Influenza, Split 07/02/2012,06/27/2011 Influenza, Trivalent, High D ose, Split, Preservative Free, Intramuscular 05/12/2024,08/02/2019,06/17/2016,04/08 Influenza, Trivalent, IM (MDV) 03/16/2015,2013,04/14/2008 Influenza, Unspecified 06/25/2021,2019(Deferred: Patient Refused) Moderna SARS-CoV-2 Monovalen t Vaccination (12+ YRS) 02/20/2022,09/12/2020 PPD TEST 01/22/2022 Pfizer SARS-CoV-2 Monovalent Vaccination (12+ Yrs) PURPLE 10/04/2020,10/03/2020,09/12/2020 Pfizer Sars-Cov-2 Bivalent V accination (12+ YRS) 05/29/2022 Pneumococcal Conjugate PCV 13 04/08/2015, 015 Pneumococcal Conjugate Pcv20 01/22/2022 Pneumococcal Polysaccharide PPV23 12/27/2016 Pneumococcal, Unspecified 03/16/2015 Social History Tobacco Use Types Packs/Day Years Used Date Smoking Tobacco: Never Passive Smoke Exposure: Past Smokeless Tobacco: Never Tobacco Cessation:Counseling Given: No Alcohol Use Standard Drinks/Week Comments Yes 0 (1 standard drink = 0.6 oz pur e alcohol) occasional C Utilities Answer Date Recorded In the past 12 months has th e electric, gas, oil, or water company [...] often do you attend chur ch or confucianism services? Never 01/19/2024 Do you belong to any clubs o r organizations such as denominational groups, unions, fraternal or athletic groups, or [...] place to sleep or slept in a long-term (including now)? No 07/16/2022 Housing Stability Vital Sign Answer Albaro e Recorded In the last 12 months, was t here a time when you were not able to pay the mortgage or rent on time? No 01/19/2024 In the past 12 months, how m any times have you moved where you were living? 0 01/19/2024 At any time in the past 12 m [facility], were you homeless or living in a long-term (including now)? No 01/19/2024 Personal Safety Answer Date Recorded Have you ever been in or are you currently in a harmful physical or emotional relationship or is someone making you feel afraid or unsafe? Denies 04/20/2024 Comments No Sex and Gender Information Value Date Recorded Sex Assigned at Not on file Legal Sex Female 11:52 PM MANAGER EMERGENCY Gender Identity Not on file Sexual Orientation Not on file Last Filed Vital Signs Vital Sign Reading Time Taken Comments Blood Pressure 110/54 05/26/2024 1:34 PM MANAGER EMERGENCY Pulse 67 05/26/2024 1:34 PM MANAGER EMERGENCY Temperature 36.2 ??C (97.1 ??F) 05/26/2024 1:34 PM CS T Respiratory Rate 20 05/26/2024 1:34 PM MANAGER EMERGENCY Oxygen Saturation 96% 05/26/2024 1:34 PM MANAGER EMERGENCY Inhaled Oxygen Concentration - - Weight 96.8 kg (213 lb 6.4 oz) 05/26/2024 1:34 P M MANAGER EMERGENCY Height 167.6 cm (5' 5.98 ) 05/26/2024 1:34 PM CS T Body Mass Index 34.46 05/26/2024 1:34 PM MANAGER EMERGENCY Plan of Treatment Not on file Medical Devices Implanted Type Area Property Preservation Specialist Device Identifier Shelf Expiration Date Model / Serial / Lot Joint Replacements Other - see comments Description:Left Total Knee Right Total Knee Left total Hip [employer] Graft Bone Magnetos 10cc 1-2mm Granules In Moldable Putty 703-038-[id number] - [id number] Implanted:Qty: 1 on 11/24/2023 by Brennan Castillo MD at [facility] [employer] [id number] 10/13/2027 703-0 38-US / / [id number] [employer] Crushed Chip Frozen Graft 60ml Bone Cancellous [id number] - [id number] Implanted:Qty: 1 on 11/24/2023 by Brennan Castillo MD at [facility] Spine Cervical [employer] 06/04/2028 [id number] / / [id number] [employer] Screw Spine Reline C Lock Open Non-Sterile Latex Free [id number] - [id number] Implanted:Qty: 8 on 11/24/2023 by Brennan Castillo MD at [facility] Spine Cervical [employer] [id number] / / [employer] Screw Spine Reline C Ma 3.5x16mm Non-Sterile Latex Free [id number] - [id number] Implanted:Qty: 2 on 11/24/2023 by Brennan Castillo MD at [facility] Spine Cervical [employer] [id number] / / [employer] Reline C Screw 3.5x16mm Reduction [id number] - [id number] Implanted:Qty: 2 on 11/24/2023 by Brennan Castillo MD at [facility] Spine Cervical [employer] [id number] / / [employer] Screw Spinal Posterior Cervical Full Thread Solid Reline 4.5x35mm Titanium [id number] - [id number] Implanted:Qty: 1 on 11/24/2023 by Brennan Castillo MD at [facility] Spine Cervical [employer] [id number] / / [employer] Reline C Screw 5.5x35mm Reduction Thor [id number] - [id number] Implanted:Qty: 3 on 11/24/2023 by Brennan Castillo MD at [facility] Spine Cervical [employer] [id number] / / [employer] Eddi Spine Reline C Ti Prebent 4.0x70mm Latex Free [id number] - [id number] Implanted:Qty: 2 on 11/24/2023 by Brennan Castillo MD at [facility] Spine Cervical [employer] [id number] / / Procedures Procedure Name Priority Date/Time Associated Diagnosis Comments SCAN - RADIOLOGY/IMAGING 07/04/2024 CT LUMBAR SPINE WO CONTRAST Schedule Routine, Read Routine (OP Routine) 06/24/2024 3:19 PM MANAGER EMERGENCY Degenerative cervical spinal stenosis CT THORACIC SPINE WO CONTRAST Schedule Routine, Read Routine (OP Routine) 06/24/2024 3:18 PM MANAGER EMERGENCY Degenerative cervical spinal stenosis DEXA AXIAL SKELETON BONE DENSITY 1 OR MORE SITES Schedule Routine, Read Routine (OP Routine) 06/24/2024 2:55 PM MANAGER EMERGENCY Other osteoporosis, unspecified pathological fracture presence MRI THORACIC SPINE WO CONTRAST Schedule Routine, Read Routine (OP Routine) 06/21/2024 3:15 PM MANAGER EMERGENCY Acute right-sided low back pain with sciatica, sciatica laterality unspecified MRI LUMBAR SPINE WO CONTRAST Schedule Routine, Read Routine (OP Routine) 06/21/2024 3:07 PM MANAGER EMERGENCY Acute right-sided low back pain with sciatica, sciatica laterality unspecified US AXILLARY NON-BREAST RIGHT Schedule Routine, Read Routine (OP Routine) 06/01/2024 3:06 PM MANAGER EMERGENCY Melanoma of right upper arm (HCC) DIABETES EYE EXAM Routine 04/30/2024 12:54 PM CDT PET/CT FDG SKULL TO THIGH Schedule Routine, Read Routine (OP Routine) 04/28/2024 1:05 PM CDT Melanoma of right upper arm (HCC) XR SCOLIOSIS 6 OR MORE VIEWS Schedule Routine, Read Routine (OP Routine) 2024 3:03 PM CDT Degenerative cervical spinal stenosis EGFR Routine 04/22/2024 12:55 PM CDT 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 (HCC) DIFFERENTIAL AUTO Routine 04/22/2024 12:55 PM CDT 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 (HCC) COMPREHENSIVE METABOLIC PANEL Routine 04/22/2024 12:55 PM CDT 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 (HCC) CBC WITH AUTO DIFFERENTIAL Routine 04/22/2024 12:55 PM CDT 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 (HCC) NM LYMPHOSCINTIGRAPHY (SKIN CANCER) Schedule Routine, Read Routine (OP Routine) 04/20/2024 11:16 AM CDT Melanoma of right upper arm (HCC) POTASSIUM, WHOLE BLOOD STAT 7:32 AM CDT POCT GLUCOSE DEVICE Routine 04/20/2024 7 :29 AM CDT ENDO ADD ON COLON BIOPSY 024 12:46 PM CDT Family history of colon cancer in father Encounter for screening colonoscopy Adenomatous polyp of colon, unspecified part of colon COLON REMOVAL SNARE 04/13/2024 12:46 PM CDT Family history of colon cancer in father Encounter for screening colonoscopy Adenomatous polyp of colon, unspecified part of colon POCT GLUCOSE DEVICE Routine 04/13/2024 11:57 AM CDT COLONOSCOPY 04/13/2024 11:49 AM CDT SURGICAL PATHOLOGY STAT 04/13/2024 10:20 AM CDT Family history of colon cancer in father Encounter for screening colonoscopy Adenomatous polyp of colon, unspecified part of colon HEMOGLOBIN A1C Routine 02/09/2024 9:50 AM CDT Controlled type 2 diabetes mellitus with hyperglycemia, with long-term current use of insulin (CMS/HCC) (HCC) ALBUMIN CREATININE RATIO, URINE Routine 02/09/2024 9:50 AM CDT Controlled type 2 diabetes mellitus with hyperglycemia, with long-term current use of insulin (CMS/HCC) (HCC) LIPID PANEL Routine 09/17/2023 11:54 AM MANAGER EMERGENCY Controlled type 2 diabetes mellitus with diabetic polyneuropathy, without long-term current use of insulin (CMS/HCC) (HCC) Type 2 diabetes mellitus with stage 3b chronic kidney disease, with long-term current use of insulin (HCC) Encounter for Medicare annual wellness exam SCREENING MAMMOGRAM BILATERAL W FADI Schedule Routine, Read Routine (OP Routine) 05/23/2023 2:24 PM MANAGER EMERGENCY Encounter for screening mammogram for malignant neoplasm of breast HEPATITIS C AB REFLEX RNA QUANT PCR Routine 12/13/2016 2:31 PM CDT from Last 3 Months or Most Recently Relevant to Health Maintenance Results * SCAN - RADIOLOGY/IMAGING (07/04/2024) Anatomical Region Laterality Modality Other us Provider Scanning Final Result * CT Lumbar Spine WO Contrast (06/24/2024 3:19 PM MANAGER EMERGENCY) Anatomical Region Laterality Modality Spine N/A Computed Tomogra phy 07/02/2024 8:38 AM MANAGER EMERGENCY Narrative 07/02/2024 8:45 AM MANAGER EMERGENCY EXAM DESCRIPTION: ?? CT THORACIC SPINE WO CONTRAST; CT LUMBAR SPINE WO CONTRAST REASON FOR STUDY: Chronic leg weakness since January 2022. ??No provided history of thoracic/lumbar spine or back complaints. ??No provided history of trauma or inciting and/or aggravating events. ??No provided past medical history. ?? History of multiple unspecified back surgeries. TECHNIQUE: Axial images acquired through the thoracic spine without intravenous contrast. ??Images reviewed with lung, soft tissue and bone windows. ??Reconstructed coronal and sagittal MPR images reviewed. ??Images stored on PACS. Automated exposure control was used as a dose optimization technique for this examination. COMPARISON: DEXA scan performed immediately prior to the studies: Reported as osteoporosis; ??MRI thoracic and lumbar spine without contrast 06/21/2024; PET-CT 04/28/2024; scoliosis radiograph 2024. FINDINGS: CT THORACIC SPINE: ALIGNMENT: ??Alignment and curvature unchanged. VERTEBRAE: ?? Diffuse demineralization of the osseous architecture. ??No acute fracture. ??Vertebral body heights unchanged. ??Spondylosis to include diffuse idiopathic skeletal hyperostosis (DISH). DISC HEIGHT: ?? Of the non fused intervertebral disc levels, multilevel variable loss of intervertebral disc height. HARDWARE: ?? Partial incidental visualization of posterior instrumented spinal fusion with posterior decompression of the cervicothoracic spine to include continuation of fusion hardware through the level of T2. ??Correlate with operative details. THORACIC DISCS T1-T12: ?? No significant osseous spinal canal stenosis. ??No significant osseous neural foraminal stenosis. ??Please reference MRI thoracic spine performed 3 days prior for level by level evaluation. SOFT TISSUES: ?? No acute abnormality. LOWER CERVICAL: ?? As above with constellation of spondylolisthesis, spondylosis, and degenerative disc disease. OTHER: ?? None. CT LUMBAR SPINE: SEGMENTATION: No lumbosacral transitional anatomy. ??The lowest fully formed intervertebral disc level is labeled L5-S1. ALIGNMENT: ??Alignment and curvature unchanged. VERTEBRAE: ??Diffuse demineralization of the osseous architecture. ??No acute fracture. ??Vertebral body heights unchanged. ??Spondylosis. DISC HEIGHT: ??Multilevel variable vacuum disc phenomenon loss of intervertebral disc height. HARDWARE: ??None in the lumbar spine with posterior decompression at L4. ?? Correlate with operative details. INDIVIDUAL DISC LEVELS: Constellation of spondylolisthesis, annular disc bulges and/or focal herniations, facet arthropathy, and ligamentum flavum thickening produces multilevel variable spinal canal stenosis and neural foraminal stenosis. ??Please reference MRI lumbar spine performed 3 days prior for level by level evaluation. SOFT TISSUES: ??No acute abnormality. OTHER: ?? No other significant abnormality. IMPRESSION: ?? 1. ?? CT evaluation of the thoracic and lumbar spine as above. 2. ?? Please reference MRI of the thoracic and lumbar spine performed 3 days prior for further evaluation. THIS IS AN ELECTRONICALLY VERIFIED FINAL REPORT 07/02/2024 8:45 AM - Electronically signed by ??Bin Schulz M.D. ALMA: ALMA D: ??07/02/2024 8:45 AM T: ??07/02/2024 8:45 AM Report ID: [id number] Reading Location: ??[id number] Procedure Note Bin Schulz MD - 07/02/2024 EXAM DESCRIPTION: CT THORACIC SPINE WO CONTRAST; CT LUMBAR SPINE WOCONTRAST REASON FOR STUDY: Chronic leg weakness since January 2022. No providedhistory of thoracic/lumbar spine or back complaints. No provided history oftrauma or inciting and/or aggravating events. No provided past medical history. History of multiple unspecified back surgeries. TECHNIQUE: Axial images acquired through the thoracic spine without intravenous contrast. Images reviewed with lung, soft tissue and bone windows. Reconstructed coronal and sagittal MPR images reviewed. Images stored on PACS. Automated exposure control was used as a dose optimization technique for this examination. COMPARISON: DEXA scan performed immediately prior to the studies: Reportedas osteoporosis; MRI thoracic and lumbar spine without contrast 06/21/2024; PET-CT 04/28/2024; scoliosis radiograph 2024. FINDINGS: CT THORACIC SPINE: ALIGNMENT: Alignment and curvature unchanged. VERTEBRAE: Diffuse demineralization of the osseous architecture. Noacute fracture. Vertebral body heights unchanged. Spondylosis to includediffuse idiopathic skeletal hyperostosis (DISH). DISC HEIGHT: Of the non fused intervertebral disc levels, multilevel variable loss of intervertebral disc height. HARDWARE: Partial incidental visualization of posterior instrumentedspinal fusion with posterior decompression of the cervicothoracic spine toinclude continuation of fusion hardware through the level of T2. Correlate with operative details. THORACIC DISCS T1-T12: No significant osseous spinal canal stenosis. No significant osseous neural foraminal stenosis. Please reference MRIthoracic spine performed 3 days prior for level by level evaluation. SOFT TISSUES: No acute abnormality. LOWER CERVICAL: As above with constellation of spondylolisthesis, spondylosis, and degenerative disc disease. OTHER: None. CT LUMBAR SPINE: SEGMENTATION: No lumbosacral transitional anatomy. The lowest fullyformed intervertebral disc level is labeled L5-S1. ALIGNMENT: Alignment and curvature unchanged. VERTEBRAE: Diffuse demineralization of the osseous architecture. Noacute fracture. Vertebral body heights unchanged. Spondylosis. DISC HEIGHT: Multilevel variable vacuum disc phenomenon loss of intervertebral disc height. HARDWARE: None in the lumbar spine with posterior decompression at L4. Correlate with operative details. INDIVIDUAL DISC LEVELS: Constellation of spondylolisthesis, annular disc bulges and/or focal herniations, facet arthropathy, and ligamentum flavum thickening produces multilevel variable spinal canal stenosis and neural foraminal stenosis. Please reference MRI lumbar spine performed 3 daysprior for level by level evaluation. SOFT TISSUES: No acute abnormality. OTHER: No other significant abnormality. IMPRESSION: 1. CT evaluation of the thoracic and lumbar spine as above. 2. Please reference MRI of the thoracic and lumbar spine performed 3days prior for further evaluation. THIS IS AN ELECTRONICALLY VERIFIED FINAL REPORT 07/02/2024 8:45 AM - Electronically signed by Bin Schulz M.D. ALMA: ALMA Report ID: [id number] Reading Location: [id number] Anson Jeffries NP IMG CT PROCEDURES Final Result * CT Thoracic Spine WO Contrast (06/24/2024 3:18 PM MANAGER EMERGENCY) Anatomical Region Laterality Modality Spine N/A Computed Tomogra phy 07/02/2024 8:38 AM MANAGER EMERGENCY Narrative 07/02/2024 8:45 AM MANAGER EMERGENCY EXAM DESCRIPTION: ?? CT THORACIC SPINE WO CONTRAST; CT LUMBAR SPINE WO CONTRAST REASON FOR STUDY: Chronic leg weakness since January 2022. ??No provided history of thoracic/lumbar spine or back complaints. ??No provided history of trauma or inciting and/or aggravating events. ??No provided past medical history. ?? History of multiple unspecified back surgeries. TECHNIQUE: Axial images acquired through the thoracic spine without intravenous contrast. ??Images reviewed with lung, soft tissue and bone windows. ??Reconstructed coronal and sagittal MPR images reviewed. ??Images stored on PACS. Automated exposure control was used as a dose optimization technique for this examination. COMPARISON: DEXA scan performed immediately prior to the studies: Reported as osteoporosis; ??MRI thoracic and lumbar spine without contrast 06/21/2024; PET-CT 04/28/2024; scoliosis radiograph 2024. FINDINGS: CT THORACIC SPINE: ALIGNMENT: ??Alignment and curvature unchanged. VERTEBRAE: ?? Diffuse demineralization of the osseous architecture. ??No acute fracture. ??Vertebral body heights unchanged. ??Spondylosis to include diffuse idiopathic skeletal hyperostosis (DISH). DISC HEIGHT: ?? Of the non fused intervertebral disc levels, multilevel variable loss of intervertebral disc height. HARDWARE: ?? Partial incidental visualization of posterior instrumented spinal fusion with posterior decompression of the cervicothoracic spine to include continuation of fusion hardware through the level of T2. ??Correlate with operative details. THORACIC DISCS T1-T12: ?? No significant osseous spinal canal stenosis. ??No significant osseous neural foraminal stenosis. ??Please reference MRI thoracic spine performed 3 days prior for level by level evaluation. SOFT TISSUES: ?? No acute abnormality. LOWER CERVICAL: ?? As above with constellation of spondylolisthesis, spondylosis, and degenerative disc disease. OTHER: ?? None. CT LUMBAR SPINE: SEGMENTATION: No lumbosacral transitional anatomy. ??The lowest fully formed intervertebral disc level is labeled L5-S1. ALIGNMENT: ??Alignment and curvature unchanged. VERTEBRAE: ??Diffuse demineralization of the osseous architecture. ??No acute fracture. ??Vertebral body heights unchanged. ??Spondylosis. DISC HEIGHT: ??Multilevel variable vacuum disc phenomenon loss of intervertebral disc height. HARDWARE: ??None in the lumbar spine with posterior decompression at L4. ?? Correlate with operative details. INDIVIDUAL DISC LEVELS: Constellation of spondylolisthesis, annular disc bulges and/or focal herniations, facet arthropathy, and ligamentum flavum thickening produces multilevel variable spinal canal stenosis and neural foraminal stenosis. ??Please reference MRI lumbar spine performed 3 days prior for level by level evaluation. SOFT TISSUES: ??No acute abnormality. OTHER: ?? No other significant abnormality. IMPRESSION: ?? 1. ?? CT evaluation of the thoracic and lumbar spine as above. 2. ?? Please reference MRI of the thoracic and lumbar spine performed 3 days prior for further evaluation. THIS IS AN ELECTRONICALLY VERIFIED FINAL REPORT 07/02/2024 8:45 AM - Electronically signed by ??Bin Schulz M.D. ALMA: ALMA D: ??07/02/2024 8:45 AM T: ??07/02/2024 8:45 AM Report ID: [id number] Reading Location: ??[id number] Procedure Note Bin Schulz MD - 07/02/2024 EXAM DESCRIPTION: CT THORACIC SPINE WO CONTRAST; CT LUMBAR SPINE WOCONTRAST REASON FOR STUDY: Chronic leg weakness since January 2022. No providedhistory of thoracic/lumbar spine or back complaints. No provided history oftrauma or inciting and/or aggravating events. No provided past medical history. History of multiple unspecified back surgeries. TECHNIQUE: Axial images acquired through the thoracic spine without intravenous contrast. Images reviewed with lung, soft tissue and bone windows. Reconstructed coronal and sagittal MPR images reviewed. Images stored on PACS. Automated exposure control was used as a dose optimization technique for this examination. COMPARISON: DEXA scan performed immediately prior to the studies: Reportedas osteoporosis; MRI thoracic and lumbar spine without contrast 06/21/2024; PET-CT 04/28/2024; scoliosis radiograph 2024. FINDINGS: CT THORACIC SPINE: ALIGNMENT: Alignment and curvature unchanged. VERTEBRAE: Diffuse demineralization of the osseous architecture. Noacute fracture. Vertebral body heights unchanged. Spondylosis to includediffuse idiopathic skeletal hyperostosis (DISH). DISC HEIGHT: Of the non fused intervertebral disc levels, multilevel variable loss of intervertebral disc height. HARDWARE: Partial incidental visualization of posterior instrumentedspinal fusion with posterior decompression of the cervicothoracic spine toinclude continuation of fusion hardware through the level of T2. Correlate with operative details. THORACIC DISCS T1-T12: No significant osseous spinal canal stenosis. No significant osseous neural foraminal stenosis. Please reference MRIthoracic spine performed 3 days prior for level by level evaluation. SOFT TISSUES: No acute abnormality. LOWER CERVICAL: As above with constellation of spondylolisthesis, spondylosis, and degenerative disc disease. OTHER: None. CT LUMBAR SPINE: SEGMENTATION: No lumbosacral transitional anatomy. The lowest fullyformed intervertebral disc level is labeled L5-S1. ALIGNMENT: Alignment and curvature unchanged. VERTEBRAE: Diffuse demineralization of the osseous architecture. Noacute fracture. Vertebral body heights unchanged. Spondylosis. DISC HEIGHT: Multilevel variable vacuum disc phenomenon loss of intervertebral disc height. HARDWARE: None in the lumbar spine with posterior decompression at L4. Correlate with operative details. INDIVIDUAL DISC LEVELS: Constellation of spondylolisthesis, annular disc bulges and/or focal herniations, facet arthropathy, and ligamentum flavum thickening produces multilevel variable spinal canal stenosis and neural foraminal stenosis. Please reference MRI lumbar spine performed 3 daysprior for level by level evaluation. SOFT TISSUES: No acute abnormality. OTHER: No other significant abnormality. IMPRESSION: 1. CT evaluation of the thoracic and lumbar spine as above. 2. Please reference MRI of the thoracic and lumbar spine performed 3days prior for further evaluation. THIS IS AN ELECTRONICALLY VERIFIED FINAL REPORT 07/02/2024 8:45 AM - Electronically signed by Bin Schulz M.D. ALMA: ALMA Report ID: [id number] Reading Location: [place] [id number] Anson Jeffries QUALITY LEAD IMG CT PROCEDURES Final Result * DEXA Axial Skeleton Bone Density Multi Site (06/24/2024 2:55 PM MANAGER EMERGENCY) Anatomical Region Laterality Modality Body N/A Other 06/24/2024 10:5 4 PM MANAGER EMERGENCY Narrative 06/24/2024 10:55 PM MANAGER EMERGENCY EXAM DESCRIPTION: DEXA AXIAL SKELETON BONE DENSITY 1 OR MORE SITES REASON FOR STUDY: 74 y/o ?? year old ??F ??with given history of: ??osteoporosis ?? Osteoporosis follow up ??Post menopausal ? Property Preservation Specialist/Model: [employer] (S/N [id number]) CLINICAL INFORMATION: Current height: ??66 ??inches ? Maximum height: ??66.5 ??inches ? Weight: ??213 ??pounds Risk factors: ??Postmenopausal, prior hip/vertebral fracture, adult fracture, asthma or emphysema COMPARISON: 05/23/2021 Dissimilar scan types or analysis methods precludes assessment for calculating a significant change. FINDINGS: AP LUMBAR SPINE L1-L4: Total BMD is 1.439 g/cm2 T-score is 3.6 Right HIP: Total BMD is 0.668 g/cm2 T-score is -2.2 Femoral neck BMD is 0.533 g/cm2 T-score is -2.9 ?? FRAX: FRAX not reported due to T-scores of hip, femoral neck and/or spine being at or below -2.5 (Osteoporosis). IMPRESSION: Osteoporosis. REFERENCE: Bone mineral density: T-Score: ?Normal (T-score above or = -1.0) ?Low bone mass ??(T-score between -1.0 and -2.5) replaces the previously used term osteopenia ?Osteoporosis (T-score = or below -2.5) Z-Score: ? Within the expected range for age (Z-score above -2.0) ? Below the expected range for age (Z-score is -2.0 or below) Please see below follow up recommendations. Medical evaluation for secondary causes of low bone mineral density may be appropriate. FRAX is a World Health Organization validated fracture risk assessment tool that calculates a person's 10 year probability of a major osteoporosis related fracture and hip fracture. ??According to the National Osteoporosis Foundation guidelines, postmenopausal women and men age 50 or older with low bone mass and a 10 year probability of a major osteoporosis related fracture = or greater than 20% or a 10 year probability of a hip fracture = or greater than 3% should be considered for pharmacological treatment for the prevention of osteoporosis. For further information, including treatment recommendations, please refer to the 2019 ISCD Official Positions (http://www.iscd.org) and the NOF's Clinician's Guide to Prevention and Treatment of Osteoporosis (http://www.nof.org/professionals/clinical-guidelines) THIS IS AN ELECTRONICALLY VERIFIED FINAL REPORT 06/24/2024 10:55 PM - Electronically signed by ??Altaf Vallejo M.D. MF: LEENA D: ??06/24/2024 10:55 PM T: ??06/24/2024 10:55 PM Report ID: [id number] Reading Location: ??[id number] Procedure Note Altaf Vallejo MD - 06/24/2024 EXAM DESCRIPTION: DEXA AXIAL SKELETON BONE DENSITY 1 OR MORE SITES REASON FOR STUDY: 74 y/o year old F with given history of:osteoporosis Osteoporosis follow up Post menopausal Property Preservation Specialist/Model: [employer] SL (S/N [id number]) CLINICAL INFORMATION: Current height: 66 inches Maximum height: 66.5 inches Weight: 213 pounds Risk factors: Postmenopausal, prior hip/vertebral fracture, adultfracture, asthma or emphysema COMPARISON: 05/23/2021 Dissimilar scan types or analysis methods precludes assessment for calculating a significant change. FINDINGS: AP LUMBAR SPINE L1-L4: Total BMD is 1.439 g/cm2 T-score is 3.6 Right HIP: Total BMD is 0.668 g/cm2 T-score is -2.2 Femoral neck BMD is 0.533 g/cm2 T-score is -2.9 FRAX: FRAX not reported due to T-scores of hip, femoral neck and/or spine beingat or below -2.5 (Osteoporosis). IMPRESSION: Osteoporosis. REFERENCE: Bone mineral density: T-Score: Normal (T-score above or = -1.0) Low bone mass (T-score between -1.0 and -2.5) replaces thepreviously used term osteopenia Osteoporosis (T-score = or below -2.5) Z-Score: Within the expected range for age (Z-score above -2.0) Below the expected range for age (Z-score is -2.0 or below) Please see below follow up recommendations. Medical evaluation forsecondary causes of low bone mineral density may be appropriate. FRAX is a World Health Organization validated fracture risk assessmenttool that calculates a person's 10 year probability of a major osteoporosisrelated fracture and hip fracture. According to the National OsteoporosisFoundation guidelines, postmenopausal women and men age 50 or older with low bonemass and a 10 year probability of a major osteoporosis related fracture = or greater than 20% or a 10 year probability of a hip fracture = or greaterthan 3% should be considered for pharmacological treatment for the preventionof osteoporosis. For further information, including treatment recommendations, please referto the 2019 ISCD Official Positions (http://www.iscd.org) and the [employer]'s Clinician's Guide to Prevention and Treatment of Osteoporosis (http://www.nof.org/professionals/clinical-guidelines) THIS IS AN ELECTRONICALLY VERIFIED FINAL REPORT 06/24/2024 10:55 PM - Electronically signed by Altaf Vallejo M.D. MF: [id number] Report ID: [id number] Reading Location: [place] [id number] Anson Jeffries NP IMG DXA PROCEDURES Final Result * MRI Thoracic Spine WO Contrast (06/21/2024 3:15 PM MANAGER EMERGENCY) Anatomical Region Laterality Modality Spine N/A Magnetic Resonan ce 06/22/2024 11:5 2 AM MANAGER EMERGENCY Narrative 06/22/2024 12:14 PM MANAGER EMERGENCY EXAM DESCRIPTION: ?? MRI THORACIC SPINE WO CONTRAST; MRI LUMBAR SPINE WO CONTRAST REASON FOR STUDY: No provided patient complaints. ??No provided history of trauma. ??No provided past medical history. ??History of C5-T2 posterior spinal fusion with posterior decompressions. TECHNIQUE: Sagittal and axial imaging of the thoracic and lumbar spine includes T1, T2, STIR and gradient echo sequences. ?? Images saved to PACS. COMPARISON: ?? PET-CT 04/28/2024; scoliosis radiographic series 2024; MRI cervical spine/thoracic spine/lumbar spine without contrast 01/17/2022; relevant portions of MRI cervical spine without contrast 07/29/2022 FINDINGS: THORACIC SPINE: THORACIC ALIGNMENT: ?? Alignment and curvature unchanged. THORACIC VERTEBRAE: ?? No MR evidence of acute-subacute fracture. ??Vertebral body heights unchanged. ??Spondylosis. ??Multilevel variable hemangiomas, most prominent T7 vertebral body, and patchy fatty marrow replacement. THORACIC DISCS: ?? Of the non fused intervertebral disc levels, multilevel variable intervertebral disc desiccation and loss of intervertebral disc height. THORACIC HARDWARE: ?? Cervicothoracic posterior instrumented spinal fusion extending through the level of T2. THORACIC CORD: ?? Normal in size with redemonstration of short-segment nonexpansile focus of T2/STIR hyperintensity at the level of C7-T1 as can be seen with cervical myelomalacia and/or cord edema pursuant to compressive myelopathy. THORACIC DISCS T1-T12: ?? T2-3: Mild annular disc bulge slightly indenting the ventral thecal sac. ?? Bilateral facet arthropathy. ??No spinal canal stenosis. ??No neural foraminal stenosis. T3-4: Small slightly right eccentric central disc protrusion indenting the ventral thecal sac. ??Bilateral facet arthropathy. ??No spinal canal stenosis. ?? No neural foraminal stenosis. T4-5: Tiny slightly right eccentric central disc protrusion slightly indenting the ventral thecal sac. ??Bilateral facet arthropathy. ??No spinal canal stenosis. ??No neural foraminal stenosis. T5-6: Small central disc protrusion indenting the ventral thecal sac. ?? Bilateral facet arthropathy. ??No spinal canal stenosis. ??No neural foraminal stenosis. T8-9: Small right eccentric central-right subarticular disc protrusion indenting the right eccentric ventral thecal sac. ??Bilateral facet arthropathy. ??No spinal canal stenosis. ??No neural foraminal stenosis. T9-10: Small left eccentric central-left subarticular disc protrusion indenting the left eccentric ventral thecal sac. ??Bilateral facet arthropathy. No spinal canal stenosis. ??No neural foraminal stenosis. T10-11: Mild annular disc bulge slightly indenting the ventral thecal sac. ?? Bilateral facet arthropathy. ??No spinal canal stenosis. ??No neural foraminal stenosis. T11-12: Annular disc bulge indenting the ventral thecal sac. ??Bilateral facet arthropathy. ??No spinal canal stenosis. ??No significant neural foraminal stenosis. THORACIC OTHER: ?? Partial incidental visualization of constellation of spondylolisthesis, spondylosis, and degenerative disc disease of the extensively postsurgical cervical spine. ??Please reference prior dedicated LUMBAR SPINE: SEGMENTATION: Top down counting on sagittal localizer sequence demonstrates no lumbosacral transitional anatomy. ??The lowest fully formed intervertebral disc level is labeled L5-S1. LUMBAR ALIGNMENT: ?? Alignment and curvature unchanged. LUMBAR VERTEBRAE: ?? No MR evidence of acute-subacute fracture. ??Vertebral body heights unchanged. ??Spondylosis. ??Scattered hemangiomas and patchy fatty marrow replacement about the osseous architecture. LUMBAR DISCS: ?? Multilevel variable vacuum disc phenomenon, intervertebral disc desiccation, and loss of intervertebral disc height. LUMBAR HARDWARE: ?? None in the lumbar spine, noting postsurgical changes pursuant to laminectomies of the lower lumbar spine. ??Correlate with operative details. LUMBAR CORD/CAUDA: ?? Normal in size and signal intensity with conus medullaris termination at the superior aspect of L2. INDIVIDUAL DISC LEVELS: T12-L1: Annular disc bulge. ??Bilateral facet arthropathy. ??Ligamentum flavum thickening. ??No spinal canal stenosis. ??No significant neural foraminal stenosis. L1-2: ?? Annular disc bulge. ??Bilateral hypertrophic facet arthropathy. ?? Ligamentum flavum thickening. ??No spinal canal stenosis. ??No neural foraminal stenosis. L2-3: ?? Mild posterior osteophytosis with annular disc bulge. ??Bilateral hypertrophic facet arthropathy. ??Ligamentum flavum thickening. ??Compromise of the left and slight compromise of the right lateral recesses, noting combination of disc and arthropathic facet variable slight contact with the descending bilateral L3 nerve roots. ??Moderate-severe spinal canal stenosis. ?? Bilateral neural foraminal stenosis, noting disc contact with the exiting bilateral L2 nerve roots. L3-4: ?? Posterior osteophytosis with annular disc bulge and right eccentric central disc protrusion. ??Bilateral hypertrophic facet arthropathy. ?? Thickening of the retained right jerry of the ligamentum flavum. ??Compromise of the bilateral lateral recesses, noting combination of disc and arthropathic facet variable slight contact with descending bilateral L4 nerve roots. ?? Moderate-severe spinal canal stenosis. ??Severe bilateral neural foraminal stenosis, noting combination of osteophytosis/disc and arthropathic facet contact with exiting bilateral L3 nerve roots. L4-5: ?? Uncovering of the intervertebral disc with posterior osteophytosis and annular disc bulge. ??Bilateral hypertrophic facet arthropathy. ??Compromise of the bilateral lateral recesses, noting combination of disc and arthropathic facet contact with the descending bilateral L5 nerve roots. ??Moderate spinal canal stenosis. ??Severe left and moderate-severe right neural foraminal stenosis, noting combination of inferior pedicular surface, disc, and arthropathic facet variable contact with the exiting bilateral L4 nerve roots. L5-S1: ?? Annular disc bulge with right eccentric central-right subarticular disc protrusion. ??Bilateral hypertrophic facet arthropathy. ??Compromise of the right lateral recess, noting disc contact with the descending right S1 nerve root. ??No spinal canal stenosis demonstrated on current imaging. ??Severe right and moderate left neural foraminal stenosis common noting combination of inferior pedicular surface, disc, and arthropathic facet variable contact with the exiting bilateral L5 nerve roots. SACRUM: ?? Visualized upper sacrum intact. SOFT TISSUES: ?? Right renal cyst. OTHER: ?? Sarcopenia manifested as variably robust fatty atrophy of the visualized musculature. IMPRESSION: ?? 1. ?? Spondylosis and degenerative disc disease of the postsurgical thoracic spine as detailed level by level above. 2. ?? Constellation of scoliosis, spondylolisthesis, spondylosis, and degenerative disc disease of the postsurgical lumbar spine as detailed level by level above. THIS IS AN ELECTRONICALLY VERIFIED FINAL REPORT 06/22/2024 12:14 PM - Electronically signed by ??Bin Schulz M.D. ALMA: ALMA D: ??06/22/2024 12:14 PM T: ??06/22/2024 12:14 PM Report ID: [id number] Reading Location: ??[id number] Procedure Note Bin Schulz MD - 06/22/2024 EXAM DESCRIPTION: MRI THORACIC SPINE WO CONTRAST; MRI LUMBAR SPINE WO CONTRAST REASON FOR STUDY: No provided patient complaints. No provided history of trauma. No provided past medical history. History of C5-T2 posteriorspinal fusion with posterior decompressions. TECHNIQUE: Sagittal and axial imaging of the thoracic and lumbar spine includes T1, T2, STIR and gradient echo sequences. Images saved to PACS. COMPARISON: PET-CT 04/28/2024; scoliosis radiographic series 2024;MRI cervical spine/thoracic spine/lumbar spine without contrast 01/17/2022; relevant portions of MRI cervical spine without contrast 07/29/2022 FINDINGS: THORACIC SPINE: THORACIC ALIGNMENT: Alignment and curvature unchanged. THORACIC VERTEBRAE: No MR evidence of acute-subacute fracture.Vertebral body heights unchanged. Spondylosis. Multilevel variable hemangiomas,most prominent T7 vertebral body, and patchy fatty marrow replacement. THORACIC DISCS: Of the non fused intervertebral disc levels, multilevel variable intervertebral disc desiccation and loss of intervertebral disc height. THORACIC HARDWARE: Cervicothoracic posterior instrumented spinal fusion extending through the level of T2. THORACIC CORD: Normal in size with redemonstration of short-segment nonexpansile focus of T2/STIR hyperintensity at the level of C7-T1 as canbe seen with cervical myelomalacia and/or cord edema pursuant to compressive myelopathy. THORACIC DISCS T1-T12: T2-3: Mild annular disc bulge slightly indenting the ventral thecal sac. Bilateral facet arthropathy. No spinal canal stenosis. No neuralforaminal stenosis. T3-4: Small slightly right eccentric central disc protrusion indenting the ventral thecal sac. Bilateral facet arthropathy. No spinal canalstenosis. No neural foraminal stenosis. T4-5: Tiny slightly right eccentric central disc protrusion slightlyindenting the ventral thecal sac. Bilateral facet arthropathy. No spinal canal stenosis. No neural foraminal stenosis. T5-6: Small central disc protrusion indenting the ventral thecal sac. Bilateral facet arthropathy. No spinal canal stenosis. No neuralforaminal stenosis. T8-9: Small right eccentric central-right subarticular disc protrusion indenting the right eccentric ventral thecal sac. Bilateral facet arthropathy. No spinal canal stenosis. No neural foraminal stenosis. T9-10: Small left eccentric central-left subarticular disc protrusion indenting the left eccentric ventral thecal sac. Bilateral facetarthropathy. No spinal canal stenosis. No neural foraminal stenosis. T10-11: Mild annular disc bulge slightly indenting the ventral thecal sac. Bilateral facet arthropathy. No spinal canal stenosis. No neuralforaminal stenosis. T11-12: Annular disc bulge indenting the ventral thecal sac. Bilateralfacet arthropathy. No spinal canal stenosis. No significant neural foraminal stenosis. THORACIC OTHER: Partial incidental visualization of constellation of spondylolisthesis, spondylosis, and degenerative disc disease of the extensively postsurgical cervical spine. Please reference prior dedicated LUMBAR SPINE: SEGMENTATION: Top down counting on sagittal localizer sequencedemonstrates no lumbosacral transitional anatomy. The lowest fully formed intervertebraldisc level is labeled L5-S1. LUMBAR ALIGNMENT: Alignment and curvature unchanged. LUMBAR VERTEBRAE: No MR evidence of acute-subacute fracture. Vertebralbody heights unchanged. Spondylosis. Scattered hemangiomas and patchy fatty marrow replacement about the osseous architecture. LUMBAR DISCS: Multilevel variable vacuum disc phenomenon, intervertebral disc desiccation, and loss of intervertebral disc height. LUMBAR HARDWARE: None in the lumbar spine, noting postsurgical changes pursuant to laminectomies of the lower lumbar spine. Correlate withoperative details. LUMBAR CORD/CAUDA: Normal in size and signal intensity with conusmedullaris termination at the superior aspect of L2. INDIVIDUAL DISC LEVELS: T12-L1: Annular disc bulge. Bilateral facet arthropathy. Ligamentumflavum thickening. No spinal canal stenosis. No significant neural foraminal stenosis. L1-2: Annular disc bulge. Bilateral hypertrophic facet arthropathy. Ligamentum flavum thickening. No spinal canal stenosis. No neuralforaminal stenosis. L2-3: Mild posterior osteophytosis with annular disc bulge. Bilateral hypertrophic facet arthropathy. Ligamentum flavum thickening. Compromiseof the left and slight compromise of the right lateral recesses, noting combination of disc and arthropathic facet variable slight contact withthe descending bilateral L3 nerve roots. Moderate-severe spinal canalstenosis. Bilateral neural foraminal stenosis, noting disc contact with the exiting bilateral L2 nerve roots. L3-4: Posterior osteophytosis with annular disc bulge and righteccentric central disc protrusion. Bilateral hypertrophic facet arthropathy. Thickening of the retained right jerry of the ligamentum flavum.Compromise of the bilateral lateral recesses, noting combination of disc andarthropathic facet variable slight contact with descending bilateral L4 nerve roots. Moderate-severe spinal canal stenosis. Severe bilateral neural foraminal stenosis, noting combination of osteophytosis/disc and arthropathic facet contact with exiting bilateral L3 nerve roots. L4-5: Uncovering of the intervertebral disc with posterior osteophytosisand annular disc bulge. Bilateral hypertrophic facet arthropathy. Compromiseof the bilateral lateral recesses, noting combination of disc andarthropathic facet contact with the descending bilateral L5 nerve roots. Moderatespinal canal stenosis. Severe left and moderate-severe right neural foraminal stenosis, noting combination of inferior pedicular surface, disc, and arthropathic facet variable contact with the exiting bilateral L4 nerveroots. L5-S1: Annular disc bulge with right eccentric central-rightsubarticular disc protrusion. Bilateral hypertrophic facet arthropathy. Compromise ofthe right lateral recess, noting disc contact with the descending right J7eveyf root. No spinal canal stenosis demonstrated on current imaging. Severeright and moderate left neural foraminal stenosis common noting combination of inferior pedicular surface, disc, and arthropathic facet variable contactwith the exiting bilateral L5 nerve roots. SACRUM: Visualized upper sacrum intact. SOFT TISSUES: Right renal cyst. OTHER: Sarcopenia manifested as variably robust fatty atrophy of the visualized musculature. IMPRESSION: 1. Spondylosis and degenerative disc disease of the postsurgicalthoracic spine as detailed level by level above. 2. Constellation of scoliosis, spondylolisthesis, spondylosis, and degenerative disc disease of the postsurgical lumbar spine as detailedlevel by level above. THIS IS AN ELECTRONICALLY VERIFIED FINAL REPORT 06/22/2024 12:14 PM - Electronically signed by Bin Schulz M.D. ALMA: ALMA Report ID: [id number] Reading Location: [place] [id number] Anosn Jeffries NP IMG MRI PROCEDURES Final Result * MRI Lumbar Spine WO Contrast (06/21/2024 3:07 PM MANAGER EMERGENCY) Anatomical Region Laterality Modality Spine N/A Magnetic Resonan ce 06/22/2024 11:5 2 AM MANAGER EMERGENCY Narrative 06/22/2024 12:14 PM MANAGER EMERGENCY EXAM DESCRIPTION: ?? MRI THORACIC SPINE WO CONTRAST; MRI LUMBAR SPINE WO CONTRAST REASON FOR STUDY: No provided patient complaints. ??No provided history of trauma. ??No provided past medical history. ??History of C5-T2 posterior spinal fusion with posterior decompressions. TECHNIQUE: Sagittal and axial imaging of the thoracic and lumbar spine includes T1, T2, STIR and gradient echo sequences. ?? Images saved to PACS. COMPARISON: ?? PET-CT 04/28/2024; scoliosis radiographic series 2024; MRI cervical spine/thoracic spine/lumbar spine without contrast 01/17/2022; relevant portions of MRI cervical spine without contrast 07/29/2022 FINDINGS: THORACIC SPINE: THORACIC ALIGNMENT: ?? Alignment and curvature unchanged. THORACIC VERTEBRAE: ?? No MR evidence of acute-subacute fracture. ??Vertebral body heights unchanged. ??Spondylosis. ??Multilevel variable hemangiomas, most prominent T7 vertebral body, and patchy fatty marrow replacement. THORACIC DISCS: ?? Of the non fused intervertebral disc levels, multilevel variable intervertebral disc desiccation and loss of intervertebral disc height. THORACIC HARDWARE: ?? Cervicothoracic posterior instrumented spinal fusion extending through the level of T2. THORACIC CORD: ?? Normal in size with redemonstration of short-segment nonexpansile focus of T2/STIR hyperintensity at the level of C7-T1 as can be seen with cervical myelomalacia and/or cord edema pursuant to compressive myelopathy. THORACIC DISCS T1-T12: ?? T2-3: Mild annular disc bulge slightly indenting the ventral thecal sac. ?? Bilateral facet arthropathy. ??No spinal canal stenosis. ??No neural foraminal stenosis. T3-4: Small slightly right eccentric central disc protrusion indenting the ventral thecal sac. ??Bilateral facet arthropathy. ??No spinal canal stenosis. ?? No neural foraminal stenosis. T4-5: Tiny slightly right eccentric central disc protrusion slightly indenting the ventral thecal sac. ??Bilateral facet arthropathy. ??No spinal canal stenosis. ??No neural foraminal stenosis. T5-6: Small central disc protrusion indenting the ventral thecal sac. ?? Bilateral facet arthropathy. ??No spinal canal stenosis. ??No neural foraminal stenosis. T8-9: Small right eccentric central-right subarticular disc protrusion indenting the right eccentric ventral thecal sac. ??Bilateral facet arthropathy. ??No spinal canal stenosis. ??No neural foraminal stenosis. T9-10: Small left eccentric central-left subarticular disc protrusion indenting the left eccentric ventral thecal sac. ??Bilateral facet arthropathy. No spinal canal stenosis. ??No neural foraminal stenosis. T10-11: Mild annular disc bulge slightly indenting the ventral thecal sac. ?? Bilateral facet arthropathy. ??No spinal canal stenosis. ??No neural foraminal stenosis. T11-12: Annular disc bulge indenting the ventral thecal sac. ??Bilateral facet arthropathy. ??No spinal canal stenosis. ??No significant neural foraminal stenosis. THORACIC OTHER: ?? Partial incidental visualization of constellation of spondylolisthesis, spondylosis, and degenerative disc disease of the extensively postsurgical cervical spine. ??Please reference prior dedicated LUMBAR SPINE: SEGMENTATION: Top down counting on sagittal localizer sequence demonstrates no lumbosacral transitional anatomy. ??The lowest fully formed intervertebral disc level is labeled L5-S1. LUMBAR ALIGNMENT: ?? Alignment and curvature unchanged. LUMBAR VERTEBRAE: ?? No MR evidence of acute-subacute fracture. ??Vertebral body heights unchanged. ??Spondylosis. ??Scattered hemangiomas and patchy fatty marrow replacement about the osseous architecture. LUMBAR DISCS: ?? Multilevel variable vacuum disc phenomenon, intervertebral disc desiccation, and loss of intervertebral disc height. LUMBAR HARDWARE: ?? None in the lumbar spine, noting postsurgical changes pursuant to laminectomies of the lower lumbar spine. ??Correlate with operative details. LUMBAR CORD/CAUDA: ?? Normal in size and signal intensity with conus medullaris termination at the superior aspect of L2. INDIVIDUAL DISC LEVELS: T12-L1: Annular disc bulge. ??Bilateral facet arthropathy. ??Ligamentum flavum thickening. ??No spinal canal stenosis. ??No significant neural foraminal stenosis. L1-2: ?? Annular disc bulge. ??Bilateral hypertrophic facet arthropathy. ?? Ligamentum flavum thickening. ??No spinal canal stenosis. ??No neural foraminal stenosis. L2-3: ?? Mild posterior osteophytosis with annular disc bulge. ??Bilateral hypertrophic facet arthropathy. ??Ligamentum flavum thickening. ??Compromise of the left and slight compromise of the right lateral recesses, noting combination of disc and arthropathic facet variable slight contact with the descending bilateral L3 nerve roots. ??Moderate-severe spinal canal stenosis. ?? Bilateral neural foraminal stenosis, noting disc contact with the exiting bilateral L2 nerve roots. L3-4: ?? Posterior osteophytosis with annular disc bulge and right eccentric central disc protrusion. ??Bilateral hypertrophic facet arthropathy. ?? Thickening of the retained right jerry of the ligamentum flavum. ??Compromise of the bilateral lateral recesses, noting combination of disc and arthropathic facet variable slight contact with descending bilateral L4 nerve roots. ?? Moderate-severe spinal canal stenosis. ??Severe bilateral neural foraminal stenosis, noting combination of osteophytosis/disc and arthropathic facet contact with exiting bilateral L3 nerve roots. L4-5: ?? Uncovering of the intervertebral disc with posterior osteophytosis and annular disc bulge. ??Bilateral hypertrophic facet arthropathy. ??Compromise of the bilateral lateral recesses, noting combination of disc and arthropathic facet contact with the descending bilateral L5 nerve roots. ??Moderate spinal canal stenosis. ??Severe left and moderate-severe right neural foraminal stenosis, noting combination of inferior pedicular surface, disc, and arthropathic facet variable contact with the exiting bilateral L4 nerve roots. L5-S1: ?? Annular disc bulge with right eccentric central-right subarticular disc protrusion. ??Bilateral hypertrophic facet arthropathy. ??Compromise of the right lateral recess, noting disc contact with the descending right S1 nerve root. ??No spinal canal stenosis demonstrated on current imaging. ??Severe right and moderate left neural foraminal stenosis common noting combination of inferior pedicular surface, disc, and arthropathic facet variable contact with the exiting bilateral L5 nerve roots. SACRUM: ?? Visualized upper sacrum intact. SOFT TISSUES: ?? Right renal cyst. OTHER: ?? Sarcopenia manifested as variably robust fatty atrophy of the visualized musculature. IMPRESSION: ?? 1. ?? Spondylosis and degenerative disc disease of the postsurgical thoracic spine as detailed level by level above. 2. ?? Constellation of scoliosis, spondylolisthesis, spondylosis, and degenerative disc disease of the postsurgical lumbar spine as detailed level by level above. THIS IS AN ELECTRONICALLY VERIFIED FINAL REPORT 06/22/2024 12:14 PM - Electronically signed by ??Bin Schulz M.D. ALMA: ALMA D: ??06/22/2024 12:14 PM T: ??06/22/2024 12:14 PM Report ID: [id number] Reading Location: ??[id number] Procedure Note Bin Schulz MD - 06/22/2024 EXAM DESCRIPTION: MRI THORACIC SPINE WO CONTRAST; MRI LUMBAR SPINE WO CONTRAST REASON FOR STUDY: No provided patient complaints. No provided history of trauma. No provided past medical history. History of C5-T2 posteriorspinal fusion with posterior decompressions. TECHNIQUE: Sagittal and axial imaging of the thoracic and lumbar spine includes T1, T2, STIR and gradient echo sequences. Images saved to PACS. COMPARISON: PET-CT 04/28/2024; scoliosis radiographic series 2024;MRI cervical spine/thoracic spine/lumbar spine without contrast 01/17/2022; relevant portions of MRI cervical spine without contrast 07/29/2022 FINDINGS: THORACIC SPINE: THORACIC ALIGNMENT: Alignment and curvature unchanged. THORACIC VERTEBRAE: No MR evidence of acute-subacute fracture.Vertebral body heights unchanged. Spondylosis. Multilevel variable hemangiomas,most prominent T7 vertebral body, and patchy fatty marrow replacement. THORACIC DISCS: Of the non fused intervertebral disc levels, multilevel variable intervertebral disc desiccation and loss of intervertebral disc height. THORACIC HARDWARE: Cervicothoracic posterior instrumented spinal fusion extending through the level of T2. THORACIC CORD: Normal in size with redemonstration of short-segment nonexpansile focus of T2/STIR hyperintensity at the level of C7-T1 as canbe seen with cervical myelomalacia and/or cord edema pursuant to compressive myelopathy. THORACIC DISCS T1-T12: T2-3: Mild annular disc bulge slightly indenting the ventral thecal sac. Bilateral facet arthropathy. No spinal canal stenosis. No neuralforaminal stenosis. T3-4: Small slightly right eccentric central disc protrusion indenting the ventral thecal sac. Bilateral facet arthropathy. No spinal canalstenosis. No neural foraminal stenosis. T4-5: Tiny slightly right eccentric central disc protrusion slightlyindenting the ventral thecal sac. Bilateral facet arthropathy. No spinal canal stenosis. No neural foraminal stenosis. T5-6: Small central disc protrusion indenting the ventral thecal sac. Bilateral facet arthropathy. No spinal canal stenosis. No neuralforaminal stenosis. T8-9: Small right eccentric central-right subarticular disc protrusion indenting the right eccentric ventral thecal sac. Bilateral facet arthropathy. No spinal canal stenosis. No neural foraminal stenosis. T9-10: Small left eccentric central-left subarticular disc protrusion indenting the left eccentric ventral thecal sac. Bilateral facetarthropathy. No spinal canal stenosis. No neural foraminal stenosis. T10-11: Mild annular disc bulge slightly indenting the ventral thecal sac. Bilateral facet arthropathy. No spinal canal stenosis. No neuralforaminal stenosis. T11-12: Annular disc bulge indenting the ventral thecal sac. Bilateralfacet arthropathy. No spinal canal stenosis. No significant neural foraminal stenosis. THORACIC OTHER: Partial incidental visualization of constellation of spondylolisthesis, spondylosis, and degenerative disc disease of the extensively postsurgical cervical spine. Please reference prior dedicated LUMBAR SPINE: SEGMENTATION: Top down counting on sagittal localizer sequencedemonstrates no lumbosacral transitional anatomy. The lowest fully formed intervertebraldisc level is labeled L5-S1. LUMBAR ALIGNMENT: Alignment and curvature unchanged. LUMBAR VERTEBRAE: No MR evidence of acute-subacute fracture. Vertebralbody heights unchanged. Spondylosis. Scattered hemangiomas and patchy fatty marrow replacement about the osseous architecture. LUMBAR DISCS: Multilevel variable vacuum disc phenomenon, intervertebral disc desiccation, and loss of intervertebral disc height. LUMBAR HARDWARE: None in the lumbar spine, noting postsurgical changes pursuant to laminectomies of the lower lumbar spine. Correlate withoperative details. LUMBAR CORD/CAUDA: Normal in size and signal intensity with conusmedullaris termination at the superior aspect of L2. INDIVIDUAL DISC LEVELS: T12-L1: Annular disc bulge. Bilateral facet arthropathy. Ligamentumflavum thickening. No spinal canal stenosis. No significant neural foraminal stenosis. L1-2: Annular disc bulge. Bilateral hypertrophic facet arthropathy. Ligamentum flavum thickening. No spinal canal stenosis. No neuralforaminal stenosis. L2-3: Mild posterior osteophytosis with annular disc bulge. Bilateral hypertrophic facet arthropathy. Ligamentum flavum thickening. Compromiseof the left and slight compromise of the right lateral recesses, noting combination of disc and arthropathic facet variable slight contact withthe descending bilateral L3 nerve roots. Moderate-severe spinal canalstenosis. Bilateral neural foraminal stenosis, noting disc contact with the exiting bilateral L2 nerve roots. L3-4: Posterior osteophytosis with annular disc bulge and righteccentric central disc protrusion. Bilateral hypertrophic facet arthropathy. Thickening of the retained right jerry of the ligamentum flavum.Compromise of the bilateral lateral recesses, noting combination of disc andarthropathic facet variable slight contact with descending bilateral L4 nerve roots. Moderate-severe spinal canal stenosis. Severe bilateral neural foraminal stenosis, noting combination of osteophytosis/disc and arthropathic facet contact with exiting bilateral L3 nerve roots. L4-5: Uncovering of the intervertebral disc with posterior osteophytosisand annular disc bulge. Bilateral hypertrophic facet arthropathy. Compromiseof the bilateral lateral recesses, noting combination of disc andarthropathic facet contact with the descending bilateral L5 nerve roots. Moderatespinal canal stenosis. Severe left and moderate-severe right neural foraminal stenosis, noting combination of inferior pedicular surface, disc, and arthropathic facet variable contact with the exiting bilateral L4 nerveroots. L5-S1: Annular disc bulge with right eccentric central-rightsubarticular disc protrusion. Bilateral hypertrophic facet arthropathy. Compromise ofthe right lateral recess, noting disc contact with the descending right [id number] root. No spinal canal stenosis demonstrated on current imaging. Severeright and moderate left neural foraminal stenosis common noting combination of inferior pedicular surface, disc, and arthropathic facet variable contactwith the exiting bilateral L5 nerve roots. SACRUM: Visualized upper sacrum intact. SOFT TISSUES: Right renal cyst. OTHER: Sarcopenia manifested as variably robust fatty atrophy of the visualized musculature. IMPRESSION: 1. Spondylosis and degenerative disc disease of the postsurgicalthoracic spine as detailed level by level above. 2. Constellation of scoliosis, spondylolisthesis, spondylosis, and degenerative disc disease of the postsurgical lumbar spine as detailedlevel by level above. THIS IS AN ELECTRONICALLY VERIFIED FINAL REPORT 06/22/2024 12:14 PM - Electronically signed by Bin Schulz M.D. ALMA: ALMA Report ID: [id number] Reading Location: [id number] Anson Jeffries NP IMG MRI PROCEDURES Final Result * US Axillary Right Non-Breast (06/01/2024 3:06 PM MANAGER EMERGENCY) Anatomical Region Laterality Modality Upper Extremities Right Ultrasound 06/01/2024 3:26 PM MANAGER EMERGENCY Impressions 06/01/2024 3:26 PM MANAGER EMERGENCY Unremarkable right axillary ultrasound with no evidence of lymphadenopathy. Electronically signed by: Salomon Max M.D. Narrative 06/01/2024 3:26 PM MANAGER EMERGENCY EXAMINATION: US AXILLARY NON-BREAST RIGHT ORDERING HEALTHCARE PROVIDER: KASHIF KOHLER HISTORY: Right upper arm melanoma. ??Tumor staging, assess for right axillary adenopathy. COMPARISON: PET/CT 04/28/2024. ??Lymphoscintigraphy 04/20/2024. TECHNIQUE: Multiple grayscale ultrasound images of the right axilla were obtained. FINDINGS: The submitted ultrasound images of the right axilla demonstrates no axillary lymphadenopathy, suspicious solid mass, fluid collection, or other abnormality. Procedure Note Salomon Max MD - 06/01/2024 EXAMINATION: US AXILLARY NON-BREAST RIGHT ORDERING HEALTHCARE PROVIDER: KASHIF KOHLER HISTORY: Right upper arm melanoma. Tumor staging, assess for right axillary adenopathy. COMPARISON: PET/CT 04/28/2024. Lymphoscintigraphy 04/20/2024. TECHNIQUE: Multiple grayscale ultrasound images of the right axilla were obtained. FINDINGS: The submitted ultrasound images of the right axilla demonstrates no axillary lymphadenopathy, suspicious solid mass, fluid collection, or other abnormality. IMPRESSION: Unremarkable right axillary ultrasound with no evidence of lymphadenopathy. Electronically signed by: Salomon Max M.D. Kashif Kohler MD IMG US PROCEDURES Fi nal Result * (ABNORMAL) DIABETES EYE EXAM (04/30/2024 12:54 PM CDT) SCRIBED DIABETIC DILATED EYE EXAM Abnormal Historical Provider [facility] Final Result * PET/CT FDG Skull to Thigh (04/28/2024 1:05 PM CDT) Anatomical Region Laterality Modality N/A Positron Emissio n Tomography (PET) 04/29/2024 9:58 AM CDT Narrative 04/29/2024 10:07 AM CDT EXAM DESCRIPTION: ?? PET/CT FDG SKULL TO THIGH REASON FOR STUDY: Melanoma of the right upper arm, PET-CT for staging and initial treatment strategy. RADIOPHARMACEUTICAL: 14 ??mCi F-18 Fluorodeoxyglucose (FDG) via a ??right antecubital ??IV site. TECHNIQUE: The patient's fasting blood glucose level, measured by glucometer before injection of FDG, was ??152 ??mg/dL. ??After intravenous administration of FDG, noncontrast CT images were obtained for attenuation correction and for fusion with emission PET images to allow for anatomical localization of PET findings. ??Emission PET images were then obtained. The area imaged spanned the region from the skull vertex to the thighs. The uptake time was approximately ?? 60 ??minutes. SUV max was normalized to body weight. COMPARISON: No prior PET-CT. ??CT chest 07/25/2014, and CT cervical spine 10/08/2023. FINDINGS: For reference, a region of interest of the ascending thoracic aorta has a maximal SUV of ??3.2 . ??For reference, a region of interest of the right hepatic lobe of the liver has a maximal SUV of ??3.7. Head: ??Normal FDG uptake is seen in the included portion of the brain. Neck: Physiologic uptake is present in the lymphoid structures and salivary glands. No hypermetabolic lymphadenopathy is identified. Chest: ??No hypermetabolic pulmonary nodule or mass. ??Areas of coarse calcification in the breast bilaterally. ??Small right pleural effusion. ??Dense mitral annular calcification is identified. ??The heart is mildly enlarged. ?? There is no pericardial effusion. Abdomen and Pelvis: Liver and spleen demonstrate normal activity without focal abnormal FDG uptake. Gallbladder unremarkable. ??Pancreas and both adrenal glands demonstrate normal FDG activity. Normal genitourinary and gastrointestinal activity is seen. There are no hypermetabolic lymph nodes in the abdomen and pelvis. Bones: No acute or aggressive appearing osseous lesions are seen. ??Extensive interval postsurgical changes in the cervical spine and upper thoracic spine with the previous interbody fusion, with interval lower cervical laminectomy and cervical and upper thoracic transpedicular screws and rods. ??There is some nonspecific activity at the surgical site, maximal SUV 6.0 which is nonfocal and may be evolving postsurgical change. ??Clinical correlation and dedicated cervical spine imaging follow-up would be recommended. ??Left hip arthroplasty is noted. ??There is trace anterolisthesis of L4 on L5. Extremities and soft tissues: No abnormal FDG uptake within the included soft tissues. ??Portions of the upper arms are outside of the CT gantry. IMPRESSION: No evidence of FDG avid malignancy. Interval postsurgical changes of the cervical spine and upper thoracic spine with some nonspecific activity at the surgical site which is nonfocal and may be evolving postsurgical change. Clinical correlation and dedicated cervical spine imaging follow-up would be recommended. Small right pleural effusion. THIS IS AN ELECTRONICALLY VERIFIED FINAL REPORT 04/29/2024 10:07 AM - Electronically signed by ??Cr Alexander M.D. CH: CINTHYA D: ??04/29/2024 10:07 AM T: ??04/29/2024 10:07 AM Report ID: [id number] Reading Location: ??[id number] Procedure Note Cr Alexander Jr., MD - 04/29/2024 EXAM DESCRIPTION: PET/CT FDG SKULL TO THIGH REASON FOR STUDY: Melanoma of the right upper arm, PET-CT for staging and initial treatment strategy. RADIOPHARMACEUTICAL: 14 mCi F-18 Fluorodeoxyglucose (FDG) via a right antecubital IV site. TECHNIQUE: The patient's fasting blood glucose level, measured byglucometer before injection of FDG, was 152 mg/dL. After intravenousadministration of FDG, noncontrast CT images were obtained for attenuation correction andfor fusion with emission PET images to allow for anatomical localization ofPET findings. Emission PET images were then obtained. The area imaged spannedthe region from the skull vertex to the thighs. The uptake time wasapproximately 60 minutes. SUV max was normalized to body weight. COMPARISON: No prior PET-CT. CT chest 07/25/2014, and CT cervical spine 10/08/2023. FINDINGS: For reference, a region of interest of the ascending thoracic aorta has a maximal SUV of 3.2 . For reference, a region of interest of the right hepatic lobe of the liver has a maximal SUV of 3.7. Head: Normal FDG uptake is seen in the included portion of the brain. Neck: Physiologic uptake is present in the lymphoid structures andsalivary glands. No hypermetabolic lymphadenopathy is identified. Chest: No hypermetabolic pulmonary nodule or mass. Areas of coarse calcification in the breast bilaterally. Small right pleural effusion.Dense mitral annular calcification is identified. The heart is mildly enlarged. There is no pericardial effusion. Abdomen and Pelvis: Liver and spleen demonstrate normal activity withoutfocal abnormal FDG uptake. Gallbladder unremarkable. Pancreas and both adrenal glands demonstrate normal FDG activity. Normal genitourinary and gastrointestinal activity is seen. There are no hypermetabolic lymph nodesin the abdomen and pelvis. Bones: No acute or aggressive appearing osseous lesions are seen.Extensive interval postsurgical changes in the cervical spine and upper thoracicspine with the previous interbody fusion, with interval lower cervicallaminectomy and cervical and upper thoracic transpedicular screws and rods. There issome nonspecific activity at the surgical site, maximal SUV 6.0 which isnonfocal and may be evolving postsurgical change. Clinical correlation anddedicated cervical spine imaging follow-up would be recommended. Left hiparthroplasty is noted. There is trace anterolisthesis of L4 on L5. Extremities and soft tissues: No abnormal FDG uptake within the includedsoft tissues. Portions of the upper arms are outside of the CT gantry. IMPRESSION: No evidence of FDG avid malignancy. Interval postsurgical changes of the cervical spine and upper thoracicspine with some nonspecific activity at the surgical site which is nonfocal andmay be evolving postsurgical change. Clinical correlation and dedicatedcervical spine imaging follow-up would be recommended. Small right pleural effusion. THIS IS AN ELECTRONICALLY VERIFIED FINAL REPORT 04/29/2024 10:07 AM - Electronically signed by Cr Alexander M.D. CH: Report ID: [id number] Reading Location: [id number] Yaniv Callaway MD IMG PET PROCEDURES Final Result * XR Scoliosis 6 or More Views (2024 3:03 PM CDT) Anatomical Region Laterality Modality Spine N/A Computed Radiogr aphy 2024 4:23 PM CDT Impressions 2024 5:33 PM CDT 1. ??Unchanged posterior decompression and instrumented fusion of C5-T2. 2. ??Mild cervical, mild to moderate thoracic, and moderate to severe lumbar degenerative disc disease. 3. ??Left total hip arthroplasty with fracture of the proximal cerclage wire. Dictated by: Naomy Mayes M.D. The radiology attending physician has personally reviewed this study, and had reviewed and/or edited this written report and agrees with it. Electronically signed by: Altaf Verduzco D.O. Narrative 2024 5:33 PM CDT EXAMINATION: XR SCOLIOSIS ??6 OR MORE VIEWS HISTORY: ??Degenerative cervical spinal stenosis, back pain. FINDINGS: 9 radiographs of the spine are submitted for interpretation. Comparison is made to CT Scoliosis dated 10/08/2023. There is posterior decompression and instrumented fusion of C5-T2. There is near complete osseous fusion of C3, C4, and instrumented levels. ??There is mild degenerative disc disease and moderate facet arthropathy proximal to the instrumented levels. ??Prevertebral soft tissues are normal. There is mild rotatory dextroscoliosis of the lumbar spine. There is no significant coronal truncal imbalance. ??There is flattening of the thoracic kyphosis with moderate anterior sagittal imbalance. ??There is a 1 cm left superior pelvic obliquity. There is mild to moderate multilevel thoracic degenerative disc disease. ??There is moderate to severe multilevel degenerative disc disease of the lumbar spine, worst and severe at L3-L5 along with scoliotic curvature. ??There is no significant spondylolisthesis. Bilateral knee arthroplasties are present. ??Left total hip arthroplasty with femoral cerclage wires is present, with fracture of the proximal femoral cerclage wire. ??Atherosclerotic vascular calcifications are present. Procedure Note Altaf Verduzco, DO - 2024 EXAMINATION: XR SCOLIOSIS 6 OR MORE VIEWS HISTORY: Degenerative cervical spinal stenosis, back pain. FINDINGS: 9 radiographs of the spine are submitted for interpretation. Comparison is made to CT Scoliosis dated 10/08/2023. There is posterior decompression and instrumented fusion of C5-T2. There is near complete osseous fusion of C3, C4, and instrumented levels. There is mild degenerative disc disease and moderate facet arthropathy proximal to the instrumented levels. Prevertebral soft tissues are normal. There is mild rotatory dextroscoliosis of the lumbar spine. There is no significant coronal truncal imbalance. There is flattening of the thoracic kyphosis with moderate anterior sagittal imbalance. There is a 1 cm left superior pelvic obliquity. There is mild to moderate multilevel thoracic degenerative disc disease. There is moderate to severe multilevel degenerative disc disease of the lumbar spine, worst and severe at L3-L5 along with scoliotic curvature. There is no significant spondylolisthesis. Bilateral knee arthroplasties are present. Left total hip arthroplasty with femoral cerclage wires is present, with fracture of the proximal femoral cerclage wire. Atherosclerotic vascular calcifications are present. IMPRESSION: 1. Unchanged posterior decompression and instrumented fusion of C5-T2. 2. Mild cervical, mild to moderate thoracic, and moderate to severe lumbar degenerative disc disease. 3. Left total hip arthroplasty with fracture of the proximal cerclage wire. Dictated by: Naomy Mayes M.D. The radiology attending physician has personally reviewed this study, and had reviewed and/or edited this written report and agrees with it. Electronically signed by: Altaf Verduzco D.O. us Anson Jeffries [facility] IMG XR PROCEDURES Final Result * (ABNORMAL) eGFR (04/22/2024 12:55 PM CDT) eGFR 43(L) >=60 mL/min/1. 73 m2 Comment: Interpretive Data Reference Interval Normal ?>/= 90 mL/min/1.73m2 Mildly decreased* ? 60 - 89 mL/min/1.73m2 Mildly to moderately decreased ?45 - 59 mL/min/1.73m2 Moderately to severely decreased ??30 - 44 mL/min/1.73m2 Severely decreased ?15 - 29 mL/min/1.73m2 Kidney Failure ?< 15 ??mL/min/1.73m2 *Relative to young adult level Estimated glomerular filtration rate is determined by the 2020 CKD-EPI equation recommended by the National Kid[employer] (A Unifying Approach to GFR Estimation: Recommendations of the NKF-ASK Task Force on Reassessing the Inclusion of Race in Diagnosing Kidney Disease, JASN 2020). The CKD-EPI equation should not be used for patients with unstable renal function and has not been validated in children and those over 70. Current interpretive data was last reviewed 2021. Testing performed by: [facility], [place], [address] Blood 04/22/2024 12:5 5 PM CDT 04/22/2024 1:17 PM CDT us Yaniv Callaway MD LAB BLOOD ORDERABLES Jessica reynolds Result [facility] ([place]) 1 [facility] [place] [address] * Differential, auto (04/22/2024 12:55 PM CDT) Neutrophil abs 6.1 1.5 - 6.5 K/cumm Comment:Testing performed by : [facility] [address], Medical Office [facility] [address], [place] [address] Imm gran abs 0.0 0.0 - 0.1 K/cumm [facility] ([place]) Comment:Testing performed by : [facility] [address], Medical Office [facility] [address], [place] [address] Lymphocyte abs 1.8 0.8 - 3.3 K/cumm [facility] ([place]) Comment:Testing performed by : [facility] [address], Medical Office [facility] [address], [place] [address] Monocyte abs 0.6 0.2 - 0.8 K/cumm [facility] ([place]) Comment:Testing performed by : [facility] [address], Medical Office [facility] [address], [place] [address] Eosinophil abs 0.2 0.0 - 0.5 K/cumm [facility] ([place]) Comment:Testing performed by : [facility] [address], Medical Office [facility] [address], [place] [address] Basophil abs 0.1 0.0 - 0.1 K/cumm [facility] ([place]) Comment:Testing performed by : [facility] [address], Medical Office [facility] [address], [place] [address] Neutrophil pct 70.2 % [facility] ([place]) Comment: Interpretive Data Percent cell count reference ranges are not reported, since discordance with absolute values may lead to misinterpretation of CBC data. Current Interpretive Data was last revised on 2022. Testing performed by: [facility] [address], Medical Office [facility] [address], [place] [address] Imm gran pct 0.1 % [facility] ([place]) Comment: Interpretive Data Percent cell count reference ranges are not reported, since discordance with absolute values may lead to misinterpretation of CBC data. Current Interpretive Data was last revised on 2022. Testing performed by: [facility] [address], Medical Office [facility] [address], [place] [address] Lymphocyte pct 20.1 % [facility] ([place]) Comment: Interpretive Data Percent cell count reference ranges are not reported, since discordance with absolute values may lead to misinterpretation of CBC data. Current Interpretive Data was last revised on 2022. Testing performed by: [facility] [address], Medical Office [facility] [address], [place] [address] Monocyte pct 6.6 % [facility] ([place]) Comment: Interpretive Data Percent cell count reference ranges are not reported, since discordance with absolute values may lead to misinterpretation of CBC data. Current Interpretive Data was last revised on 2022. Testing performed by: [facility] [address], Medical Office [facility] [address], [place] [address] Eosinophil pct 2.3 % [facility] ([place]) Comment: Interpretive Data Percent cell count reference ranges are not reported, since discordance with absolute values may lead to misinterpretation of CBC data. Current Interpretive Data was last revised on 2022. Testing performed by: [facility] [address], Medical Office [facility] [address], [place] [address] Basophil pct 0.7 % [facility] ([place]) Comment: Interpretive Data Percent cell count reference ranges are not reported, since discordance with absolute values may lead to misinterpretation of CBC data. Current Interpretive Data was last revised on 2022. Testing performed by: [facility] [address], Medical Office [facility] [address], [place] [address] Blood 04/22/2024 12:5 5 PM CDT 04/22/2024 1:05 PM CDT us Yaniv Callaway MD LAB BLOOD ORDERABLES Jessica reynolds Result [facility] ([place]) 1 [facility] Department of [place] [address] * (ABNORMAL) CBC with auto differential (04/22/2024 12:55 PM CDT) WBC 8.7 3.8 - 9.9 K/cumm Comment:Testing performed by : [facility] [address], Medical Office [facility] [address], [place] [address] Hgb 10.1(L) 11.9 - 15.5 g/dL [facility] ([place]) Comment:Testing performed by : [facility] [address], Medical Office [facility] [address], [place] [address] Hct 31.3(L) 35.6 - 45.5 % [facility] ([place]) Comment:Testing performed by : [facility] [address], Medical Office [facility] [address], [place] [address] Plt 184 150 - 400 K/cumm [facility] ([place]) Comment:Testing performed by : [facility] [address], Medical Office [facility] [address], [place] [address] MPV 9.5 9.1 - 12.3 fL [facility] ([place]) Comment:Testing performed by : [facility] [address], Medical Office [facility] [address], [place] [address] RBC 3.53(L) 3.90 - 5.20 M/cumm [facility] ([place]) Comment:Testing performed by : [facility] [address], Medical Office [facility] [address], [place] [address] MCV 88.7 81.3 - 96.4 fL [facility] ([place]) Comment:Testing performed by : [facility] [address], Medical Office [facility] [address], [place] [address] MCH 28.6 27.1 - 33.3 pg [facility] ([place]) Comment:Testing performed by : [facility] [address], Medical Office [facility] B [facility] [address], [place] [address] MCHC 32.3 32.3 - 35.7 g/dL [facility] ([place]) Comment:Testing performed by : [facility] [address], Medical Office [facility] [address], [place] [address] RDW CV 13.4 11.1 - 14.9 % [facility] ([place]) Comment:Testing performed by : [facility] [address], Medical Office [facility] [address], [place] [address] RDW SD 43.6 35.7 - 48.1 fL [facility] ([place]) Comment:Testing performed by : [facility] [address], Medical Office [facility] [address], [place] [address] NRBC abs Not Measured 0.00 - 0.01 K/cumm [facility] ([place]) Comment:Testing performed by : [facility] [address], Medical Office [facility] [address], [place] [address] Blood 04/22/2024 12:5 5 PM CDT 04/22/2024 1:05 PM CDT Yaniv Callaway MD LAB BLOOD ORDERABLES Jessica reynolds Result [facility] ([place]) 1 [facility] [place] [address] * (ABNORMAL) Comprehensive metabolic panel (04/22/2024 12:55 PM CDT) Sodium 141 135 - 145 mmol/L Comment:Testing performed by : [facility], [place], [address] Potassium, pl 3.6 3.3 - 4.9 mmol/L [facility] ([place]) Comment:Testing performed by : [facility], [place], [address] Chloride 104 97 - 110 mmol/L [facility] ([place]) Comment:Testing performed by : [facility], [place], [address] CO2 26 22 - 32 mmol/L [facility] ([place]) Comment:Testing performed by : [facility], [place], [address] Anion gap 11 2 - 15 mmol/L [facility] ([place]) Comment:Testing performed by : [facility], [place], [address] BUN 16 6 - 25 mg/dL [facility] ([place]) Comment:Testing performed by : [facility], [place], [address] Creatinine 1.30(H) 0.60 - 1.10 mg/dL [facility] ([place]) Comment:Testing performed by : [facility], [place], [address] Glucose 98 70 - 199 mg/dL [facility] ([place]) Comment: Interpretive Data Fasting glucose >/= 126 mg/dl is diagnostic for diabetes. ?? Fasting is defined as no caloric intake for at least 8 hours. Fasting glucose between 100 mg/dl to 125 mg/dl is diagnostic of prediabetes. In a patient with classic symptoms of hyperglycemia or hyperglycemic crisis, a random glucose >/= 200 mg/dl is diagnostic for diabetes. In the absence of unequivocal hyperglycemia, results should be confirmed by repeat testing. The classification and Diagnosis of Diabetes Diabetes Care 2021; 46: S19-S40. Current interpretive data was last revised 2022. Testing performed by: [facility], [place], [address] Calcium 9.2 8.5 - 10.3 mg/dL [facility] ([place]) Comment:Testing performed by : [facility], [place], [address] Bilirubin, total 0.3 0.1 - 1.2 mg/dL [facility] ([place]) Comment:Testing performed by : [facility], [place], [address] Protein, pl 6.8 6.5 - 8.5 g/dL [facility] ([place]) Comment:Testing performed by : [facility], [place], [address] Albumin 3.7 3.5 - 5.0 g/dL [facility] ([place]) Comment:Testing performed by : [facility], [place], [address] Alk phos 70 40 - 130 Units/L [facility] ([place]) Comment:Testing performed by : [facility], [facility], [place], [address] ALT 9 7 - 45 Units/L [facility] ([place]) Comment:Testing performed by : [facility], [facility], [place], [address] AST 13 10 - 45 Units/L [facility] ([place]) Comment:Testing performed by : [facility], [facility], [place], [address] Blood 04/22/2024 12:5 5 PM CDT 04/22/2024 1:17 PM CDT us Yaniv Callaway MD LAB BLOOD ORDERABLES Jessica reynolds Result [facility] ([place]) [address] [place] [address] [place] [address] * NM Lymphoscintigraphy (Skin Cancer) (04/20/2024 11:16 AM CDT) Anatomical Region Laterality Modality N/A Nuclear Medicine 04/20/2024 11:4 1 AM CDT Narrative 04/20/2024 11:46 AM CDT EXAM DESCRIPTION: ?? NM LYMPHOSCINTIGRAPHY (SKIN CANCER) RADIOPHARMACEUTICAL: 503 ??uCi ??Tc-99m tilmanocept ??injected intradermally about a ??right shoulder ??melanoma. Injection performed by WAN Hoyos . REASON FOR STUDY: ?? 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 TECHNIQUE: ?? AP and posterior views of the whole-body and upper chest and lower neck were obtained up to 2.5 hours post injection. COMPARISON: ?? None FINDINGS: Imaging demonstrates no definite uptake in lymph nodes in the axilla or neck on the initial or delayed images . Imaging available for use in the operating room. IMPRESSION: No sentinel nodes were identified after 2.5 hours of imaging. THIS IS AN ELECTRONICALLY VERIFIED FINAL REPORT 04/20/2024 11:46 AM - Electronically signed by ??Néstor Davis M.D. LB: ARVIND D: ??04/20/2024 11:46 AM T: ??04/20/2024 11:46 AM Report ID: [id number] Reading Location: ??[id number] Procedure Note Néstor Davis MD - 04/20/2024 EXAM DESCRIPTION: NM LYMPHOSCINTIGRAPHY (SKIN CANCER) RADIOPHARMACEUTICAL: 503 uCi Tc-99m tilmanocept injected intradermally about a right shoulder melanoma. Injection performed by WAN Hoyos . 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 TECHNIQUE: AP and posterior views of the whole-body and upper chest and lower neck were obtained up to 2.5 hours post injection. COMPARISON: None FINDINGS: Imaging demonstrates no definite uptake in lymph nodes in the axilla orneck on the initial or delayed images . Imaging available for use in the operating room. IMPRESSION: No sentinel nodes were identified after 2.5 hours of imaging. THIS IS AN ELECTRONICALLY VERIFIED FINAL REPORT 04/20/2024 11:46 AM - Electronically signed by Néstor Davis M.D. LB: ARVIND Report ID: [id number] Reading Location: [id number] us Kashif Kohler MD [facility] PROCEDURES Fi nal Result * (ABNORMAL) Potassium, whole blood (04/20/2024 7:32 AM CDT) Potassium, bld 3.0(C) 3.3 - 4.9 mmol/L Comment: Critical result called to and read back by Saloni Ritter (Amb Surg) on 04/20/2024 07:52:22 CDT to Tab Young. Interpretive Data This method is not able to assess for hemolysis, which may falsely increase potassium concentrations. If further testing is needed to evaluate this result, consider in-laboratory plasma potassium. Current Interpretive Data was last revised on 2022. Blood 04/20/2024 7:32 AM CDT 04/20/2024 7:40 AM CDT us Keshawn Macias MD LAB BLOOD ORDERABLES Fin al Result Performing Organization Address City/[facility]/ZIP Co de Phone Number [facility] ([place]) [address] [place] [address] * POCT glucose (04/20/2024 7:29 AM CDT) Glucose, POC 152 70 - 199 mg/dL Blood 04/20/2024 7:29 AM CDT 04/20/2024 7:29 AM CDT us Kashif Kohler MD LAB POCT ORDERABLES - DEVICE Final Result Performing Organization Address [facility] Co de Phone Number [facility] ([place]) [address] [place] [address] * POCT glucose (04/13/2024 11:57 AM CDT) Glucose, POC 156 70 - 199 mg/dL Blood 04/13/2024 11:5 7 AM CDT 04/13/2024 11:57 AM CDT us Karlene Ramirez MD LAB POCT ORDERABLES - MUKESH CE Final Result Performing Organization Address [facility] Co de Phone Number [facility] ([place]) [address] [place] [address] * Colonoscopy (04/13/2024 11:49 AM CDT) Anatomical Region Laterality Modality Other Narrative Procedure Note Karlene Ramirez MD - 04/13/2024 11:49 AM CDT [facility] Patient Name: Criss Ly Procedure Date: 04/13/2024 11:49 AM Date of : 1950 Admit Type: Outpatient Age: 73 Gender: Female Attending MD: Karlene Ramirez M.D. Room: [facility] ENDOSCOPY ROOM 1 Note Status: Finalized Patient Profile: This is a 73 year old female. History of polyps. Father had colon cancer. Procedure: Colonoscopy Indications: Screening in patient at increased risk: Familyhistory of 1st-degree relative with colorectal cancer, High risk colon cancer surveillance: Personal history of colonic polyps, Last colonoscopy: September 2018 Referring MD: Tereso England M.D. Providers: Karlene Ramirez M.D. Impression: - One 5 mm polyp in the cecum, removed with a jumbo cold forceps. Resected and retrieved. - One 4 mm polyp in the descending colon. Removedwith Jumbo cold forceps. Resected and retrieved - Three 8 to 9 mm polyps in the descending colonand in the transverse colon, removed with a cold snare. Resected and retrieved. - One 9 mm polyp in the sigmoid colon, removed witha cold snare. Resected and retrieved. - Internal hemorrhoids. Recommendation: - Await pathology results. - Repeat colonoscopy in 3 years for surveillancewith 2 days colon preparation. - Continue present medications. Medicines: Monitored Anesthesia Care Complications: No immediate complications. Estimated Blood Loss: Estimated blood loss: none. Procedure: Pre-Anesthesia Assessment: - Prior to the procedure, a History and Physicalwas performed, and patient medications and allergieswere reviewed. The patient's tolerance of previous anesthesia was also reviewed. The risks andbenefits of the procedure and the sedation options and risks were discussed with the patient. All questions were answered, and informed consent was obtained. Prior Anticoagulants: The patient has taken noanticoagulant or antiplatelet agents. ASA Grade Assessment: Per anesthesia note and evaluation. After reviewing the risks and benefits, the patient was deemed in satisfactory condition to undergo the procedure. The benefits, risks and alternatives of theprocedure and sedation were discussed and informed consentwas obtained. All questions were answered. Please referto the signed informed consent document in the medical record. The bowel preparation used was Miralax via split dose instruction. The bowel preparation usedwas bisacodyl tablets via split dose instruction. The scope was passed under direct vision. The Pediatric Colonoscope PCF-H190L [id number] was introducedthrough the anus and advanced to the the cecum, identifiedby appendiceal orifice and ileocecal valve. Thequality of the bowel preparation was fair. Bowel prep was administered using a split dose. Findings: The perianal and digital rectal examinations were normal. The appendiceal orifice was normal. Patient has long tortuousredundant colon. A 5 mm polyp was found in the cecum. The polyp was sessile.The polyp was removed with a jumbo cold forceps. Resection and retrieval were complete. The ascending colon appeared normal. Three sessile polyps were found in the descending colon andtransverse colon. The polyps were 8 to 9 mm in size. These polyps were removedwith a cold snare. Resection and retrieval were complete. Neither 4 mmsemi sessile polyp noted in the descending colon removed with a Jumbo cold forceps. Resected and retrieved. A 9 mm polyp was found in the sigmoid colon. The polyp was sessile.The polyp was removed with a cold snare. Resection and retrieval were complete. Internal hemorrhoids were found during retroflexion. The hemorrhoids were medium-sized. Electronically signed by Karlene Ramirez M.D. Karlene Ramirez M.D. 04/13/2024 1:57:18 PM Number of Addenda: 0 Note Initiated On: 04/13/2024 11:49 AM Procedure Code(s): --- Professional --- 55494, Colonoscopy, flexible; with removal of tumor(s), polyp(s), or other lesion(s) by snare technique 16605, 59, Colonoscopy, flexible; with biopsy, single or multiple Diagnosis Code(s): --- Professional --- Z80.0, Family history of malignant neoplasm of digestive organs Z86.010, Personal history of colonic polyps D12.0, Benign neoplasm of cecum D12.5, Benign neoplasm of sigmoid colon K64.8, Other hemorrhoids D12.4, Benign neoplasm of descending colon D12.3, Benign neoplasm of transverse colon (hepatic flexure orsplenic flexure) CPT copyright 2020 [employer]. All rights reserved. The codes documented in this report are preliminary and upon corporate communications specialist reviewmay be revised to meet current compliance requirements. Recognized by the [employer] for promoting quality in endoscopy Karlene Ramirez MD ENDOSCOPY PROCEDURES Final Result * Surgical pathology (04/13/2024 10:20 AM CDT) Tissue (Polyp(s), colon/colorectal, esophageal, gastric) 04/13/2024 1:10 PM CDT Tissue (Polyp(s), colon/colorectal, esophageal, gastric) 04/13/2024 1:17 PM CDT Tissue (Polyp(s), colon/colorectal, esophageal, gastric) 04/13/2024 1:35 PM CD[address]ative PATHOLOGY [facility] ([place]) - 04/15/2024 1:47 PM CDT EPIC results best viewed via link to PDF [facility] Department of Pathology [address] [place], [place] [id number] Note to Patients: This report may contain a detailed description of human tissue sent by a health care provider to the laboratory for pathologic evaluation. The content of this report is essential for diagnosis and may provide important critical findings. This information may be unfamiliar to patients to review without a medical professional present. It is advised that the patient review this report in the presence of a health care provider who can answer questions and explain the details. Final Report Patient Name: ??CIRSS LY Address: ??[address] [place] [address] , [place], [place] ??[address]- Gender: ??F : ??1950 (Age: 73) Service: ??Gastro Location: ??[facility] Hospital #: ??[id number] Patient Type: ??[facility] Accession # [id number] Taken: ??04/13/2024 Received: ??04/14/2024 Accessioned: ??04/14/2024 Reported: ??04/15/2024 Physician(s):Dr. Karlene Ramirez M.D. Diagnosis: A. ??Colon, descending, biopsies: ? - Tubular adenomas. ? - No evidence of high-grade dysplasia or malignancy. B. ??Colon, cecum, biopsy: ? - Tubular adenoma. ? - No evidence of high-grade dysplasia or malignancy. C. ??Colon, sigmoid, biopsy: ? - Tubulovillous adenoma. ? - No evidence of high-grade dysplasia or malignancy. Alexey Hill MD Report Electronically Reviewed and Signed Out By ??Alexey Hill MD ??04/15/2024 13:47:04 Specimen(s) Received: A: Descending polyp x 4 B: Cecum polyp x 1 C: Sigmoid polyp x 1 Microscopic Description: A. Microscopic examination shows abundant fecal material and four polypoid fragments of colonic mucosa with adenomatous mucosal changes consistent with tubular adenomas. ??There is no evidence of high-grade dysplasia or malignancy. B. Microscopic examination shows three polypoid fragments of colonic mucosa, one of which shows adenomatous mucosal changes consistent with a tubular adenoma. ??There is no evidence of high-grade dysplasia or malignancy. C. Microscopic examination shows polypoid fragments of colonic mucosa with adenomatous mucosal changes and focal surface villiform architecture. The findings are consistent with a tubulovillous adenoma. There is no evidence of high-grade dysplasia or malignancy. Clinical History: Family history of colon cancer in father. ??Adenomatous polyp of colon. ??Screening colonoscopy. Gross Description: The specimen is submitted in three formalin containers labeled CRISS LY . Bridgette. ??The first container is labeled descending polyp x4 . ??It is 4 red-myers polypoid tissue fragments between 1 and 4 mm and an approximate 0.5 cc aggregate of fecal material. ??Entirely submitted: ??Tissue A1, fecal material A2. B. ??The second container is labeled cecum polyp . ??It is 3 fragments of myers tissue measuring 1-2 mm. ??All in B. C. ??The third container is labeled sigmoid polyp . It is two red-myers polypoid tissue fragments measuring 3 and 6 mm. ??The larger is inked and bisected. All in [facility] [place]ridgette./Raffi Sauceda M.D. REPORT IMAGES AND SCANNED DOCUMENTS, IF INCLUDED, ONLY VIEWABLE IN PDF VERSION OF REPORT The performance characteristics of some immunohistochemical stains, fluorescence in-situ hybridization tests and immunophenotyping by flow cytometry cited in this report (if any) were determined by the Surgical Pathology Department at [facility] as part of an ongoing quality review trainer program and in compliance with federally mandated regulations drawn from the Clinical Laboratory Improvement Act of 1988 (CLIA '88). ??Some of these tests rely on the use of analyte specific reagents and are subject to specific labeling requirements by the US Food and Drug Administration. ??Such diagnostic tests may only be performed in a facility that is certified by the Department of Health and Human Services as a high complexity laboratory under CLIA '88. The FDA has determined that such clearance or approval is not necessary. ??This test is used for clinical purposes. ??It should not be regarded as investigational or for research. ??Nevertheless, federal rules concerning the medical use of analyte specific reagents require that the following disclaimer be attached to the report: This test was developed and its performance characteristics determined by the Surgical Pathology Department [facility]. ??It has not been cleared or approved by the U. S. Food and Drug Administration. Note for decalcified specimens: This assay has not been validated on decalcified tissues. Results should be interpreted with caution given the possibility of false negativity on decalcified specimens us Karlene Ramirez MD LAB PATHOLOGY ORDERABLES F inal Result PATHOLOGY [facility] ([place]) [address] [place] [address] * (ABNORMAL) Albumin Creatinine Ratio, Urine (02/09/2024 9:50 AM CDT) Albumin Ur 54.8 mg/L Comment: Interpretive Data No reference range established. Current interpretive data was last revised 2018. Testing performed by: [facility], [address] [place] [address]., [address] Creatinine Ur 59.2 mg/dL [facility] ([place]) Comment: Interpretive Data No reference range established. Current interpretive data was last revised 2018. Testing performed by: [facility], [address] [place] [address]., [address] Albumin Creatinine Ratio, Ur 93(H) 1 - 29 mg/g [facility] ([place]) Comment:Testing performed by : [address] [address] Urine 02/09/2024 9:50 AM CDT 02/09/2024 1:41 PM CDT Tereso England MD LAB URINE ORDERABLES Jessica reynolds Result [facility] 1 [facility] [place] [address] * (ABNORMAL) Hemoglobin A1c (02/09/2024 9:50 AM CDT) Hgb A1C 6.9(H) 4.0 - 5.6 % Comment:Testing performed by : [address] [address] Estimated Average Glucose 151 mg/dL [facility] ([place]) Comment: The ADA recommends reporting an estimated Average Glucose (eAG) with all Hemoglobin A1c results using the equation derived from a study of 507 normal and diabetic adults. ??Minority populations were underrepresented and children were not included. ?? (Diabetes Care 31:6974-4070, 2008). ??The eAG is not equivalent to a fasting glucose. Testing performed by: [address] [address] Blood 02/09/2024 9:50 AM CDT 02/09/2024 1:41 PM CDT us Tereso England MD LAB BLOOD ORDERABLES Jessica reynolds Result [facility] ([place]) 1 [facility] [place] [address] * Lipid panel (09/17/2023 11:54 AM MANAGER EMERGENCY) [facility] Cholesterol 134 30 - 199 mg/dL Comment: Interpretive Data Ages < or = 19 years ??Acceptable: ? <170 mg/dL ??Borderline high: ??170-199 mg/dL ??High: ? >or= 200 mg/dL Ages > or = 20 years ??Desirable: ?<200 mg/dL ??Borderline high: ??200-239 mg/dL ??High: ? >or= 240 mg/dL Literature References: 1. Expert Panel on Integrated Guidelines for Cardiovascular Health and Risk Reduction in Children and Adolescents. Pediatrics 2011;128:S213 2. NCEP Expert Panel. Circulation 2004;110:227 Current Interpretive Data was last revised on 2018. Testing performed by: [facility], [address] [place] [address]., [address] Triglycerides 121 <=149 mg/dL [facility] ([place]) Comment: Interpretive Data Ages < or = 9 years ??Acceptable: ? <75 mg/dL ??Borderline high: ??75-99 mg/dL ??High: ? >or= 100 mg/dL Ages 10 to 20 years ??Acceptable: ? <90 mg/dL ??Borderline high: ??90-129 mg/dL ??High: ? >or= 130 mg/dL Ages > or = 20 years ??Desirable: ?<150 mg/dL ??Borderline high: ??150-199 mg/dL ??High: ? 200-499 mg/dL ?Very high: ?? >or= 499 mg/dL Literature References: 1. Expert Panel on Integrated Guidelines for Cardiovascular Health and Risk Reduction in Children and Adolescents. Pediatrics 2011;128:S213 2. NCEP Expert Panel. Circulation 2004;110:227 Current Interpretive Data was last revised on 2018. Testing performed by: [facility], [address] [place] [address]., [address] HDL 45 >=40 mg/dL [facility] ([place]) Comment: Interpretive Data Ages < or = 19 years ??Acceptable: ? >45 mg/dL ??Borderline low: ?? 40-45 mg/dL ??Low: ? <40 mg/dL Ages > or = 20 years ??Desirable: ?>or= 60 mg/dL ??Low: ? <40 mg/dL Literature References: 1. Expert Panel on Integrated Guidelines for Cardiovascular Health and Risk Reduction in Children and Adolescents. Pediatrics 2011;128:S213 2. NCEP Expert Panel. Circulation 2004;110:227 Current Interpretive Data was last revised on 2018. Testing performed by: [facility], [address] [place] [address]., [address] LDL, calculated 65 <=129 mg/dL [facility] ([place]) Comment: Interpretive Data Ages < or = 19 years ??Acceptable: ? <110 mg/dL ??Borderline high: ??110-129 mg/dL ??High: ?>or= 130 mg/dL Ages > or = 20 years ??Optimal: ? <100 mg/dL ??Near optimal: ?100-129 mg/dL ??Borderline high: ?? 130-159 mg/dL ??High: ?>160 mg/dL Literature References: 1. Expert Panel on Integrated Guidelines for Cardiovascular Health and Risk Reduction in Children and Adolescents. Pediatrics 2011;128:S213 2. NCEP Expert Panel. Circulation 2004;110:227 Current Interpretive Data was last revised on 2018. Testing performed by: [facility], [address] [place] [address]., [address] Non-HDL Cholesterol 89 mg/dL [facility] ([place]) Comment: Interpretive Data Ages < or = 19 years ??Acceptable: ?<120 mg/dL ??Borderline high: ??120-144 mg/dL ??High: ?>145 mg/dL Ages > or = 20 years ??When triglycerides are >200 mg/dL, Non-HDL cholesterol is a secondary target of ? therapy with treatment goals that are 30 mg/dL greater than the LDL cholesterol target. ? Literature References: 1. Expert Panel on Integrated Guidelines for Cardiovascular Health and Risk Reduction in Children and Adolescents. Pediatrics 2011;128:S213 2. NCEP Expert Panel. Circulation 2004;110:227 Current Interpretive Data was last revised on 2018. Testing performed by: [facility], [address] [place] [address]., [id number] Chol/HDL ratio 3 ANDRIA CUADRA (JOSHUA) Comment:Testing performed by : [facility], [address] [place] [address]., [id number] Blood 09/17/2023 11:5 4 AM MANAGER EMERGENCY 09/17/2023 5:50 PM MANAGER EMERGENCY us Sarah Carter NP LAB BLOOD ORDERABLES Final Result ANN CUADRA (JOSHUA) 1 [facility] Department [place] [address] * SCREENING MAMMOGRAM BILATERAL W FADI (05/23/2023 2:24 PM MANAGER EMERGENCY) Anatomical Region Laterality Modality Breast Bilateral Mammography 05/23/2023 3:54 PM MANAGER EMERGENCY Impressions 05/23/2023 3:54 PM MANAGER EMERGENCY No mammographic evidence of malignancy (on limited assessment, see above). A 1 year screening mammogram is recommended. BI-RADS: 2 - Benign. The patient has been or will be contacted. The patient will be entered into a reminder system with a target due date of 1 year for her next mammogram. Electronically signed by: Salomon Max M.D. Narrative 05/23/2023 3:54 PM MANAGER EMERGENCY EXAMINATION: SCREENING MAMMOGRAM BILATERAL W FADI ORDERING HEALTHCARE PROVIDER: TERESO ENGLAND HISTORY: Routine screening mammography. ??Bilateral breast reduction in 2008. COMPARISON: ??08/08/2020, 11/04/2017, 07/10/2016, 04/15/2015 TECHNIQUE: CC and MLO views of the bilateral breasts were obtained with digital technique using breast tomosynthesis with C view. Computer aided detection was utilized. FINDINGS: DENSITY: There are scattered fibroglandular elements in the bilateral breasts. BREASTS: Suboptimal examination due to difficulty involving patient positioning related to the patient's physical condition and limited mobility (in a wheelchair). ??There are postoperative changes of bilateral reduction mammoplasty. ??There are vascular calcifications and scattered benign dystrophic calcifications in both breasts. There is no definite new suspicious finding in either breast on mammogram. Tereso England MD IMG MAMMO PROCEDURES Jessica l Result * Hepatitis C Antibody Reflex Hepatitis C RNA Quantitative PCR (12/13/2016 2:31 PM CDT) Hep C Ab Negative Negative ANN MENDES Blood specimen (specimen) 12/13/2016 2:31 PM CDT 12/13/2016 7:01 PM CDT Clayton Sandoval MD LAB MICROBIOLOGY - GENER AL ORDERABLES Final Result ANN [id number] [address] Department [place] [address] from Last 3 Months or Most Recently Relevant to Health Maintenance Insurance [employer] [facility] Advance Directives For more information, please contact: [phone] * Full Code (Latest Code Status on File) Date Activated Date Inactivated Comments 04/13/2024 11:25 AM 04/13/2024 6:59 PM * Full Code Date Activated Date Inactivated Comments 04/13/2024 11:24 AM 04/13/2024 11:25 AM * Full Code Date Activated Date Inactivated Comments 11/25/2023 6:04 PM 12/04/2023 9:32 PM * Full Code Date Activated Date Inactivated Comments 01/16/2022 5:10 PM 01/18/2022 9:36 PM * Full Code Date Activated Date Inactivated Comments 12/22/2018 9:25 AM 12/22/2018 3:42 PM Care Teams Welfare Visitor Relationship Specialty Start Date End Date Tereso England MD [address] [place] [address] PCP - General 08/03/19
--- OUTSIDE RECORDS SUMMARY | 2024-07-11 22:32 | XMS_ITS | Encounter Summary ---
Author Organization [facility] Healthcare Address [address] [place] [address] Care Team Providers Care Nozzle Tender Name Role Phone Lalito England MD Primary Care Provider [phone] Reason for Referral * Diagnostic Imaging (Routine) - Closed Specialty Diagnoses / Procedures Referred By Contac t Referred To Contact Diagnoses Melanoma of right upper arm (HCC) Procedures US Axillary Right Non-Breast Kashif Pickett MD [address] [facility] [id number] [place] [address] Phone: tel: fax: [address] [phone] Referral ID Status Reason Start Date Expiration Date Visits Re quested Visits Authorized [id number] Closed 04/20/2024 05/20/2025 1 1 SALES AGENT Reason for Visit * Diagnostic Imaging (Routine) - Closed Specialty Diagnoses / Procedures Referred By Contac t Referred To Contact Diagnoses Melanoma of right upper arm (HCC) Procedures US Axillary Right Non-Breast Kashif Pickett MD [address] [facility] [id number] [place] [address] Phone: tel: fax: [address] [phone] Referral ID Status Reason Start Date Expiration Date Visits Re quested Visits Authorized [id number] Closed 04/20/2024 05/20/2025 1 1 Encounter Details Date Type Department Care Team (Latest Contact Info) Description 06/01/2024 2:17 PM TELESALES AGENT - 06/01/2024 11:59 PM TELESALES AGENT Hospital Encounter [facility] [address] [place] [address] Melanoma of right upper arm (HCC) Discharge Disposition: Discharge to home or self care Social History Tobacco Use Types Packs/Day Years Used Date Smoking Tobacco: Never Passive Smoke Exposure: Past Smokeless Tobacco: Never Alcohol Use Standard Drinks/Week Comments Yes 0 (1 standard drink = 0.6 oz pur e alcohol) occasional [facility] Utilities Answer Date Recorded In the past [...] often do you attend chur ch or sabianism services? Never 01/19/2024 Do you belong to any clubs o r organizations such as lutheran groups, unions, fraternal or athletic groups, or [...] place to sleep or slept in a detention (including now)? No 07/16/2022 Housing Stability Vital Sign Answer Albaro e Recorded In the last 12 months, was t here a time when you were not able to pay the mortgage or rent on time? No 01/19/2024 In the past 12 months, how m any times have you moved where you were living? 0 01/19/2024 At any time in the past 12 m [facility], were you homeless or living in a detention (including now)? No 01/19/2024 Personal Safety Answer Date Recorded Have you ever been in or are you currently in a harmful physical or emotional relationship or is someone making you feel afraid or unsafe? Denies 04/20/2024 Comments No Sex and Gender Information Value Date Recorded Sex Assigned at Not on file Legal Sex Female 11:52 PM TELESALES AGENT Gender Identity Not on file Sexual Orientation Not on file documented as of this encounter Medications at Time of Discharge acetaminophen 500 mg capsule Take 2 capsules (1,000 mg total) by mouth every 6 (six) hours 05/23/202 4 albuterol HFA (PROVENTIL HFA,VENTOLIN HFA,PROAIR HFA) 90 mcg/actuation inhaler Inhale 2 puffs every 6 (six) hours as needed for wheezing apixaban (ELIQUIS) 5 mg tablet Take 1 tablet (5 mg total) by mouth 2 (two) times a day Do not restart eliquis until two weeks after surgery (12/07) 4 aspirin 81 mg enteric coated tabletIndications:p revention of thrombosis Take 1 tablet (81 mg total) by mouth 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 DX: E11.22. 200 strip 1 4 blood-glucose meter (CONTOUR NEXT USB METER) misc test as directed 1 each 0 4 calcium carbonate-vitamin D3 1,500 mg (600 mg elemental)-500 unit capsule Take by mouth clobetasoL (TEMOVATE) 0.05 % cream PLEASE SEE ATTACHED FOR DETAILED DIRECTIONS 4 cloNIDine (CATAPRES) 0.1 mg tabletIndications:H ypertension associated with type 2 diabetes mellitus (HCC) TAKE 1/2 TABLET BY MOUTH TWICE DAILY FOR HYPERTENSION 90 tablet 6 3 docusate sodium (COLACE) 100 mg capsule Take 1 capsule (100 mg total) by mouth 3 (three) times a day as needed for constipation finasteride (PROSCAR) 5 mg tablet Take 1 tablet (5 mg total) by mouth daily Has not started 4 fluticasone propionate (FLONASE) 50 mcg/actuation nasal sprayIndications:Al lergic rhinitis due to pollen SPRAY 2 SPRAYS INTO EACH NOSTRIL EVERY DAY 48 mL 1 4 fluticasone propionate (FLOVENT HFA) 110 mcg/actuation inhaler INHALE 2 PUFFS EVERY MORNING 4 furosemide (LASIX) 20 mg tablet TAKE 2 TABLETS (40 MG TOTAL) BY MOUTH DAILY. 180 tablet 4 4 04/01/20 25 gabapentin (NEURONTIN) 100 mg capsule Take 1 capsule (100 mg total) by mouth 4 (four) times a day Patient takes 1 capsule TID and then 2 capsules at bedtime. insulin aspart (NovoLOG) 100 unit/mL (3 mL) pen for injectionIndication s:Controlled type 2 diabetes mellitus with diabetic polyneuropathy, without long-term current use of insulin (HCC) Inject 15 Units under the skin 3 (three) times a day before meals 84 mL 2 3 lancets (MICROLET LANCET) misc test by fingerstick route 3 times daily 300 each 3 6 losartan (COZAAR) 25 mg tablet Take 0.5 tablets (12.5 mg total) by mouth daily Patient has not started yet, wanted to talk to 90 tablet 4 montelukast (SINGULAIR) 10 mg tablet TAKE 1 TABLET BY MOUTH AT BEDTIME FOR ALLERGIES 90 tablet 5 3 naloxone (NARCAN) 4 mg/actuation spray,non-aerosol Administer 1 spray into affected nostril(s) as needed for opioid reversal 1 each 2 nystatin powder Apply topically 4 (four) times a day ondansetron ODT (ZOFRAN-ODT) 8 mg disintegrating tabletIndications:P revention of Post-Operative Nausea and Vomiting Take 1 tablet (8 mg total) by mouth every 8 (eight) hours as needed for nausea or vomiting 12 tablet 1 4 pen needle, diabetic (BD Ultra-Fine Mini Pen Needle) 31 gauge x 3/16 needle 1 NEEDLE DIRECTED (4 PER DAY) 300 each 3 4 polyethylene glycol (MIRALAX) 17 gram packetIndications:c onstipation Take 1 packet (17 g total) by mouth as needed for constipation semaglutide (Ozempic) 2 mg/dose (8 mg/3 mL) pen injector injection INJECT 2 MG SUBCUTANEOUSLY ONE TIME PER WEEK 3 mL 4 SEMGLEE-yfgn 100 unit/mL (3 mL) pen for injection Inject 20 Units under the skin nightly 4 senna-docusate (PERICOLACE) 8.6-50 mgIndications:const ipation Take 2 tablets by mouth 2 (two) times a day 4 simvastatin (ZOCOR) 40 mg tabletIndications:C ontrolled type 2 diabetes mellitus with diabetic polyneuropathy, without long-term current use of insulin (HCC) TAKE 1 TABLET BY MOUTH AT BEDTIME 90 tablet 5 3 triamcinolone (KENALOG) 0.1 % cream Apply topically legs 4 HYDROcodone-acetami nophen (NORCO) 5-325 mg per tabletIndications:P ain Take 1 tablet by mouth every 6 (six) hours as needed for pain (Dx: DDD lumbar spine/spinal stenosis) 60 tablet 4 06/14/20 24 omeprazole (PriLOSEC) 20 mg capsule TAKE 1 CAPSUEL BY MOUTH TWICE DAILY FOR GERD 180 capsule 5 3 06/28/20 24 documented as of this encounter Discharge Disposition Disposition Code Departure Means Destination Discharge to home or self care documented in this encounter Plan of Treatment Not on file documented as of this encounter Procedures Procedure Name Priority Date/Time Associated Diagnosis Comments US AXILLARY NON-BREAST RIGHT Schedule Routine, Read Routine (OP Routine) 06/01/2024 3:06 PM TELESALES AGENT Melanoma of right upper arm (HCC) documented in this encounter Results * US Axillary Right Non-Breast (06/01/2024 3:06 PM TELESALES AGENT) Anatomical Region Laterality Modality Upper Extremities Right Ultrasound 06/01/2024 3:26 PM TELESALES AGENT Impressions 06/01/2024 3:26 PM TELESALES AGENT Unremarkable right axillary ultrasound with no evidence of lymphadenopathy. Electronically signed by: Salomon Max M.D. Narrative 06/01/2024 3:26 PM TELESALES AGENT EXAMINATION: US AXILLARY NON-BREAST RIGHT ORDERING HEALTHCARE PROVIDER: KASHIF PICKETT HISTORY: Right upper arm melanoma. ??Tumor staging, [...] AXILLARY NON-BREAST RIGHT ORDERING HEALTHCARE PROVIDER: KASHIF PICKETT HISTORY: Right upper arm melanoma. Tumor staging, [...] lymphadenopathy. Electronically signed by: Salomon Max M.D. us Kashif Pickett MD IMG US PROCEDURES Fi nal Result documented in this encounter Visit Diagnoses Diagnosis Melanoma of right upper arm (HCC) documented in this encounter Care Teams Nozzle Tender Relationship Specialty Start Date End Date Lalito England MD [address] [place] [address] PCP - General 08/03/19 documented as of this encounter
--- OUTSIDE RECORDS SUMMARY | 2024-07-11 22:32 | XMS_ITS | Clinical Summary ---
Author Organization [facility] Address [address] [place] [address] Care Team Providers Care Principal Examiner Name Role Phone Tereso England MD Primary Care Provider [phone] Allergies No known active allergies Medications blood-glucose [...] polyneuropathy, without long-term current use of insulin ([facility]) Inject 15 Units under the skin 3 (three) times a day before meals 84 mL 2 023 Active simvastatin (ZOCOR) 40 mg tabletIndication s:Controlled [...] s:Hypertension associated with type 2 diabetes mellitus ([facility]) TAKE 1/2 TABLET BY MOUTH TWICE DAILY [...] 1 tablet (81 mg total) by mouth early childhood coordinator before breakfast Do not restart until 2 [...] yet, wanted to talk to 90 tablet Active fluticasone propionate (FLOVENT HFA) [...] TWICE DAILY FOR GERD 180 capsule 5 Active omeprazole (PriLOSEC) 20 mg capsule TAKE 1 CAPSUEL BY MOUTH TWICE DAILY FOR GERD 180 capsule 5 023 12/16/ 2024 Discontinued HYDROcodone-acet aminophen (NORCO) 5-325 mg per tabletIndication s:Pain Take 1 tablet by mouth every 6 (six) hours as needed for pain (Dx: DDD lumbar spine/spinal stenosis) 60 tablet 024 2023 Discontinued(R kyara) Active Problems Problem Noted Date Diagnosed Date Stage II pressure ulcer of left buttock 05/26/20 Assessment & Plan (05/26/2024 2:40 PM COMPUTER DRAFTER): Stable. Continue use of doughnut especially when [...] 05/12/2024 Assessment & Plan (05/26/2024 2:40 PM COMPUTER DRAFTER): Visit preventive in nature. We reviewed medications, chronic conditions, risk factors, lifestyle recommendations. Reviewed immunization recommendations. Follow-up in 6 months for chronic conditions and 1 year for annual wellness. Assessment & Plan (05/12/2024 10:21 AM CDT): Focus of exam is preventative in nature. Hilary calderon age and comrobid appropriate screenigns and will continue to follow response. No change at the presne time. BMI 35.0-35.9,adult 05/12/2024 Assessment & Plan (05/12/2024 10:21 AM CDT): Encoruage 150min/week aerobic exerise. Controlled type 2 diabetes m cuong with hyperglycemia, with long-term current use of insulin ([facility]) 02/09/2024 Assessment & Plan (02/09/2024 9:48 [...] renal disease with congestive heart failure (CMS/HCC) 01/06/2024 Assessment & Plan (05/12/2024 10:20 AM [...] femoral v ein 01/18/2022 Age-related osteoporosis wit leia current pathological fracture 01/18/2022 Assessment & Plan (05/12/2024 10:19 AM CDT): Reivewed calcium and vitamin D supplementaiton. Montior erspnose. Difficulty in walking, not elsewhere classified 01/18/2022 Gastro-esophageal reflux disease without esophag itis 01/18/2022 Assessment & Plan (05/12/2024 10:19 AM CDT): NO dsyphagia. Continue on PPI and will mackwfabio chaves. Hypertension secondary to endocrine disorders Spinal stenosis, [...] 01/2022 Assessment & Plan (05/26/2024 2:39 PM COMPUTER DRAFTER): Lipid panel ordered. Continue with simvastatin. Will [...] disease) stage 4, GFR 15-29 ml/min (CMS/HCC) 08/23/2021 Assessment & Plan (05/12/2024 10:18 AM CDT): Kalyanue f/u with nephrology. WIll ontior resopnse to onoging losartan and reviewed blood pressure management recommendations. Morbid (severe) obesity due to excess calories 0 08/22/2021 DDD (degenerative disc disease), lumbar 08/17/19 22 Degenerative lumbar spinal stenosis 08/17/2021 Assessment & Plan (05/26/2024 2:39 PM COMPUTER DRAFTER): Continue f/u with Anson Jeffries and team at [facility] spine for discussion of possible intervention. Will also place referral to [facility] to see if they can provide help with transportation. Assessment & Plan (05/12/2024 10:17 AM CDT): Continue f/u with Anson Jeffries and team at [facility] spine for discussion of possible intervention. Lumbar post-laminectomy syndrome 08/17/2021 Persistent vomiting 11/17/2018 Overview (11/17/2018): Added automatically from request for surgery [id number] Hx of colonic polyps 09/04/2018 Overview (09/04/2018): Added automatically from request for surgery [id number] Family hx of colon cancer 09/04/2018 Overview (09/04/2018): Added automatically from request for surgery [id number] Healthcare maintenance 12/27/2016 Medication management 12/27/2016 Idiopathic [...] (hypertension) Assessment & Plan (05/26/2024 2:38 PM COMPUTER DRAFTER): Normotensive. Continue clonidine, furosemide, losartan. Continue heart [...] excisional therapy with Dr. Kohler tomorrow at [facility]. Encounters Date Type Department Care Team Description 07/04/2024 Orders Only [facility] [address] [place] [address] Scanning, Provider 07/02/2024 Nurse Triage [facility] [address] [place] [phone] Tereso England MD 07/02/2024 Telephone [facility] [address] [place] [phone] Tereso England MD Symptom Based Call 06/24/2024 2:35 PM COMPUTER DRAFTER - 06/24/2024 11:59 PM COMPUTER DRAFTER Hospital Encounter [address] [address] Degenerative cervical spinal stenosis Discharge Disposition: Discharge to home or self care 06/24/2024 2:35 PM COMPUTER DRAFTER - 06/24/2024 11:59 PM COMPUTER DRAFTER Hospital Encounter [address] [address] Degenerative cervical spinal stenosis Discharge Disposition: Discharge to home or self care 06/24/2024 2:35 PM COMPUTER DRAFTER - 06/24/2024 11:59 PM COMPUTER DRAFTER Hospital Encounter [facility] [address] [place] [address] Other osteoporosis, unspecified pathological fracture presence Discharge Disposition: Discharge to home or self care 06/23/2024 Telephone [facility] [address] [place] [address] Miya Quevedo 06/21/2024 1:52 PM COMPUTER DRAFTER - 06/21/2024 11:59 PM COMPUTER DRAFTER Hospital Encounter [facility] [address] [place] [address] Acute right-sided low back pain with sciatica, sciatica laterality unspecified Discharge Disposition: Discharge to home or self care 06/21/2024 1:52 PM COMPUTER DRAFTER - 06/21/2024 11:59 PM COMPUTER DRAFTER Hospital Encounter [facility] [address] [place] [address] Acute right-sided low back pain with sciatica, sciatica laterality unspecified Discharge Disposition: Discharge to home or self care 06/21/2024 Telephone [facility] Accountable Care Organization [address] [place] [address] Cielo Stewart MA [facility] 06/08/2024 Telephone [facility] [address] [phone] Tereso England MD Referral Request 06/01/2024 2:17 PM COMPUTER DRAFTER - 06/01/2024 11:59 PM COMPUTER DRAFTER Hospital Encounter [facility] [address] [place] [address] Melanoma of right upper arm (HCC) Discharge Disposition: Discharge to home or self care 05/26/2024 1:30 PM COMPUTER DRAFTER Office Visit [facility] [address] [phone] Sarah Carter NP Type 2 diabetes mellitus with hyperlipidemia (HCC) (Primary Dx); Hypertension associated with diabetes (HCC); Annual physical exam; Degenerative lumbar spinal stenosis; Stage II pressure ulcer of left buttock (HCC); Class 1 obesity due to excess calories with serious comorbidity and body mass index (BMI) of 34.0 to 34.9 in adult 05/24/2024 Telephone [facility] [address] [phone] Yola Oliver MA Labs Needed for Appointment 05/19/2024 Telephone [facility] [address] [phone] Tereso England MD 05/13/2024 Telephone [facility] [address] [phone] Tereso England MD Medical Question/Miscellaneou s 05/12/2024 9:30 AM CDT Office Visit [facility] [address] [phone] Tereso England MD Flu vaccine need (Primary [...] (HCC) 05/10/2024 11:45 AM CDT Office Visit [facility] [address] [place] [address] [facility] [address] [place] [address] Yaniv Callaway MD Melanoma of right upper arm (HCC) 05/07/[address] [facility] [address] [place] [address] [phone] Osiris Rodriguez, CLT 05/04/2024 Telephone [facility] [address] [phone] Tereso England MD Referral Request 05/03/2024 Telephone [facility] [address] [phone] Ольга Bacon MA Chart Review ([facility]) 05/03/[address] [facility] [address] [place] [address] [phone] Audrey Mcqueen, CLT 04/28/2024 11:08 AM CDT - 04/28/2024 11:59 PM CDT Hospital Encounter [facility] Building [address] [place] [address] Melanoma of right upper arm (HCC) Discharge Disposition: Discharge to home or self care 04/28/2024 Telephone [facility] [address] [phone] Tereso England MD Referral Request 04/27/2024 Telephone [facility] [address] [facility] Medical Office Building [address] [place] [address] Anson Jeffries NP 04/26/2024 Orders Only [facility] [address] [facility] Office Building [address] [place] [address] Anson Jeffries, EDUCATIONAL FUNDRAISING DIRECTOR Degenerative cervical spinal stenosis (Primary Dx); Other osteoporosis, unspecified pathological fracture presence; Acute right-sided low back pain with sciatica, sciatica laterality unspecified 2024 2:30 PM CDT Office Visit [facility] [address] [place] [address] Medical Office Building [address] [place] [address] Anson Jeffries, EDUCATIONAL FUNDRAISING DIRECTOR Degenerative cervical spinal stenosis (Primary Dx) 2024 2:00 PM CDT - 2024 11:59 PM CDT Hospital Encounter [facility] [address] [place] [address] [address] [place] [address] Degenerative cervical spinal stenosis Discharge Disposition: Discharge to home or self care 2024 Telephone [facility] Accountable Care Organization [address] [place] [address] Delisa Miranda MA [facility] 04/22/2024 1:30 PM CDT Office Visit [facility] Physicians [facility] On[facility] [address] [place] [address] Medical Office Bld[address] [place] [address] Yaniv Callaway MD Melanoma of right upper arm (HCC); 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 Cancer [address] [place] [address] 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 (HCC) (Primary Dx) 04/22/2024 Telephone [facility] [address] [phone] Tereso England MD Referral Request 04/22/2024 Telephone [facility] [address] [phone] Tereso England MD Referral Request 04/20/2024 11:15 AM CDT Anesthesia Event [facility] Operating Room [address] [place] [address] Clayton Gonzales MD Reynolds, Ethan Emerson, MD 04/20/2024 6:49 AM CDT - 04/20/2024 11:59 PM CDT Hospital Encounter [facility] [address] [place] [address] Discharge Disposition: Discharge to home or self care 04/20/2024 6:49 AM CDT - 04/20/2024 11:59 PM CDT Hospital Encounter [facility] [address] [place] [address] Melanoma of right upper arm (HCC) Discharge Disposition: Discharge to home or self care 04/20/2024 6:47 AM CDT - 04/20/2024 1:00 PM CDT Hospital Encounter [facility] Room [address] [place] [address] Kashif Kohler MD Discharge Disposition: Discharge to home or self care 04/20/2024 Orders Only [facility] Surgery [address] [facility] [address] [place] [address] Olive Purcell RN Melanoma of right upper arm (HCC) (Primary Dx) 04/13/2024 12:54 PM CDT Anesthesia Event [address] [address] Clayton Gonzales MD 04/13/2024 12:25 PM CDT - 04/13/2024 12:55 PM CDT Surgery [address] [address] Karlene Ramirez MD COLON REMOVAL SNARE 04/13/2024 11:20 AM CDT - 04/13/2024 2:49 PM CDT Hospital Encounter [address] [address] Karlene Ramirez MD Family history of colon cancer in father; Encounter for screening colonoscopy; Adenomatous polyp of colon, unspecified part of colon Discharge Disposition: Discharge to home or self care 04/13/2024 Telephone [facility] [address] [phone] Tereso England MD Authorization/Certifi cation 04/13/2024 Telephone [facility] [address] [place] [address] Eva Arnold RN 04/12/2024 Orders Only [facility] Neurosurgery [address] [facility] Medical Office Building [address] [place] [address] Anson Jeffries, MARKOS Degenerative cervical spinal stenosis (Primary Dx) 04/12/2024 Orders Only [facility] Physicians [facility] Surgery [address] [facility] [address] [place] [phone] Sofía Roth RMA Melanoma of right upper arm (HCC) (Primary Dx) from Last 3 Months Immunizations Name Administration Dates Next Due H1N1 [...] Pneumococcal Polysaccharide PPV23 12/27/2016 Pneumococcal, Unspecified 03/16/2015 Surgical History Surgery Date Site/Laterality Comments TOTAL KNEE ARTHROPLASTY 09/27/2005 Left Left TKA - Dr. Cole Beckham TOTAL KNEE ARTHROPLASTY 08/27/2001 Right Right TKA - Dr. Kuldeep Basurto BACK SURGERY 08/14/2006 back surgery - microdecompression Lumbar - Dr. Srinath Tovar TONSILLECTOMY tonsillectomy LUMBAR SPINE SURGERY Surgery, lumbar spine OTHER SURGICAL HISTORY Fall: Medical Management REDUCTION MAMMAPLASTY 07/14/2008 - 07/13/2009 Bilateral COLONOSCOPY 09/15/2013 BACK SURGERY 03/25/2022 Dr. Robinson Block TOTAL HIP ARTHROPLASTY 02/05/[address] David Sykes, [facility] - conversion of previous hip arthroplasty left hip: Conversion of Arthroplasty left hip NECK SURGERY 06/13/2008 - 07/13/2008 4 discs replaced in neck, Dr. Srinath Tovar NECK SURGERY november 8 screws in neck NECK SURGERY 11/24/2023 Pt had plate and 8 screws added SHOULDER SURGERY 02/10/2024 Right Pt had melanoma cut out. 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 Osteoarthritis Osteoarthritis Hx Other Medical [facility] OA Hx Other Medical 2008 Discectomy, cer vical Sarcoidosis Sarcoidosis Type 2 diabetes mellitus (HCC) D iabetes type 2 Hyperlipidemia Hyperlipidemia Gastroesophageal reflux disease GERD Hypertension Hypertension Hx Other Medical Fall Hx Other Medical Left proximal f emoral Gamma Nail fixation proximal; Comments: [facility] 07/25/2015 - Hx Other Medical RTKR 2002.; Com ments: [facility] 07/25/2015 - Hx Other Medical LTKR 2006.; Com ments: [facility] 07/25/2015 - Hx Other Medical Back surgery 20 07.; Comments: J 07/25/2015 - Hx Other Medical Cervical disc s urg. 2007.; Comments: [facility] 07/25/2015 - Hx Other Medical Breast reductio n 2008.; Comments: [facility] 07/25/2015 - Hx Other Medical left hip and le g surgery Hx Other Medical conversion of p revious hip arthroplasty left hip; Comments: [facility] TCU unit 02/06 - 02/17/16 for rehabilitation. Type II diabetes mellitus wi th stage 3 chronic kidney disease (HCC) Benign hypertension with CKD (chronic kidney disease) stage III (HCC) Type 2 diabetes mellitus wit h hyperglycemia (CMS/HCC) (HCC) Type 2 diabetes mellitus wit h diabetic autonomic (poly)neuropathy (HCC) Asthma Lumbar stenosis Osteoporosis Cervicalgia 11/24/2023 Dvt femoral (deep venous thr ombosis) (CMS/HCC) (HCC) r eg Cancer (CMS/HCC) (HCC) Melanoma skin cancer Melanoma (HCC) Family History Medical History Relation Name Comments Cancer Brother 1 Diabetes Brother 1 Diabetes mellit us; Hypertension Brother 2 Lymphoma Brother 2 Cancer -lymphom a; Stroke Brother 2 Colon cancer Father Heart disease Father Heart disease; Heart failure Father CHF; Cause of : CHF Diabetes Mother Diabetes mellit us; Hypertension Mother Hypertension; Breast cancer Neg Hx Ovarian cancer Neg Hx Thyroid cancer Neg Hx Relation Name Status Comments Brother 1 Alive Brother 2 Alive Father Mother Social History Tobacco Use Types Packs/Day Years Used Date Smoking Tobacco: Never Passive Smoke Exposure: Past Smokeless Tobacco: Never Tobacco Cessation:Counseling Given: No Alcohol Use Standard Drinks/Week Comments Yes 0 (1 standard drink = 0.6 oz pur e alcohol) occasional Baihe Utilities Answer Date Recorded In the past 12 months has [employer], gas, oil, or water [employer] threatened to shut off services in your [...] week 01/19/2024 How often do you attend [facility] or oriental orthodox services? Never 01/19/2024 Do you belong to any clubs o r organizations such as anabaptist groups, unions, fraternal or athletic groups, or [...] you are drinking? Patient does not drink 10/02/202 4 Q3: How often do you have si [...] place to sleep or slept in a penitentiary (including now)? No 07/16/2022 Housing Stability Vital Sign Answer Albaro e Recorded In the last 12 months, was t here a time when you were not able to pay the mortgage or rent on time? No 01/19/2024 In the past 12 months, how m any times have you moved where you were living? 0 01/19/2024 At any time in the past 12 [facility], were you homeless or living in a penitentiary (including now)? No 01/19/2024 Personal Safety Answer Date Recorded Have you ever been in or are you currently in a harmful physical or emotional relationship or is someone making you feel afraid or unsafe? Denies 04/20/2024 Comments No Sex and Gender Information Value Date Recorded Sex Assigned at Not on file Legal Sex Female 11:52 PM COMPUTER DRAFTER Gender Identity Not on file Sexual Orientation Not on file Obstetrics History Para Term AB IAB SAB Ectopic Multiple Livin g Live Births 0 0 0 0 0 0 0 0 0 0 0 Last Filed Vital Signs Vital Sign Reading Time Taken Comments Blood Pressure 110/54 05/26/2024 1:34 PM COMPUTER DRAFTER Pulse 67 05/26/2024 1:34 PM COMPUTER DRAFTER Temperature 36.2 ??C (97.1 ??F) 05/26/2024 1:34 PM CS T Respiratory Rate 20 05/26/2024 1:34 PM COMPUTER DRAFTER Oxygen Saturation 96% 05/26/2024 1:34 PM COMPUTER DRAFTER Inhaled Oxygen Concentration - - Weight 96.8 kg (213 lb 6.4 oz) 05/26/2024 1:34 P M COMPUTER DRAFTER Height 167.6 cm (5' 5.98 ) 05/26/2024 1:34 PM CS T Body Mass Index 34.46 05/26/2024 1:34 PM COMPUTER DRAFTER Plan of Treatment Health Maintenance Due Date Last Done Comments DTaP/Tdap/Td Vaccine (1 - Tdap) 1960 Zoster Vaccine (1 of 2) 1999 Covid-19 Vaccine (2023-2 5 season) 2024 05/29/2022, 02/20/2022, 02/20/2022, Additional history exists Hemoglobin A1C 08/11/2024 02/09/2024, 05/0 09/2023, 09/17/2023, Additional history exists Lipid Panel 09/16/2024 09/17/2023, 03/14, 08/22/2021, Additional history exists Albumin Creatinine Ratio, Urine 02/08/2025 02/09/2024, 03/28/2023, 04/05/2020, Additional history exists eGFR 04/22/2025 04/22/2024, 01/12, 12/03/2023, Additional history exists Dilated Eye Exam 04/30/2025 04/30/2024, 09/2023, 10/14/2022, Additional history exists Depression Screening 05/12/2025 05/12/2024, 02/09/2024, 12/29/2023, Additional history exists Fall Risk Assessment 05/12/2025 05/12/2024, 04/13/2024, 04/02/2024, Additional history exists Foot Exam 05/26/2025 05/26/2024, 05/14, 10/22/2021, Additional history exists Well Visit 65+ 05/26/2025 05/26/2024, 04/15, 05/26/2023, Additional history exists Osteoporosis Screening-Bone Density Scan 06/24/2026 06/24/2024, 05/23/2021, 06/22/2018, Additional history exists Colon Cancer Screening-Colonoscopy 04/13/2027 04/13/2024, 09/28/2018, 09/15/2013, Additional history exists Hepatitis C Screening Completed 12/13/2016, 017 Pneumococcal vaccine 65+ Completed 022, 12/27/2016, 04/08/2015, Additional history exists Breast Cancer Screening-Mammogram Discontinued 05/23/2023, 08/08/2020, 11/04/2017, Additional history exists Colon Cancer Screening-CT Colonography Discontinued 04/13/2024, 09/28/2018, 09/15/2013, Additional history exists Colon Cancer Screening-DNA Stool Discontinued 04/13/2024, 09/28/2018, 09/15/2013, Additional history exists Colon Cancer Screening-FIT Discontinued 04/13, 09/28/2018, 09/15/2013, Additional history exists Colon Cancer Screening-Sigmoidoscopy Discontinued 04/13/2024, 09/28/2018, 09/15/2013, Additional history exists Influenza Vaccine Completed 05/12/2024, , 04/24/2022, Additional history exists Medical Devices Implanted Type Area Warehouse Team Leader Device Identifier Shelf Expiration Date Model / Serial / Lot Joint Replacements Other - see comments Description:Left Total Knee Right Total Knee Left total Hip New Age Medical Graft Bone Magnetos 10cc 1-2mm Granules In Moldable Putty 703-038-[id number] - [id number] Implanted:Qty: 1 on 11/24/2023 by Brennan Castillo MD at [facility] [id number] 10/13/2027 703-0 38-US / / [id number] [employer]ource Crushed Chip Frozen Graft 60ml Bone Cancellous [id number] - [id number] Implanted:Qty: 1 on 11/24/2023 by Brennan Castillo MD at [facility] Spine Cervical [employer] 06/04/2028 [id number] / / [id number] [employer] Screw Spine Reline C Lock Open Non-Sterile Latex Free [id number] - [id number] Implanted:Qty: 8 on 11/24/2023 by Brennan Castillo MD at [facility] Spine Cervical [employer] [id number] / / [employer] Screw Spine Reline C Ma 3.5x16mm Non-Sterile Latex Free [id number] - [id number] Implanted:Qty: 2 on 11/24/2023 by Brennan Castillo MD at [facility] Spine Cervical [employer] [id number] / / [employer] Reline C Screw 3.5x16mm Reduction [id number] - [id number] Implanted:Qty: 2 on 11/24/2023 by Brennan Castillo MD at [facility] Spine Cervical [employer] [id number] / / [employer] Screw Spinal Posterior Cervical Full Thread Solid Reline 4.5x35mm Titanium [id number] - [id number] Implanted:Qty: 1 on 11/24/2023 by Brennan Castillo MD at [facility] Spine Cervical [employer] [id number] / / [employer] Reline C Screw 5.5x35mm Reduction Thor [id number] - [id number] Implanted:Qty: 3 on 11/24/2023 by Brennan Castillo MD at [facility] Spine Cervical [employer] [id number] / / [employer] Eddi Spine Reline C Ti Prebent 4.0x70mm Latex Free [id number] - [id number] Implanted:Qty: 2 on 11/24/2023 by Brennan Castillo MD at [facility] Spine Cervical [employer] [id number] / / Procedures Procedure Name Priority Date/Time Associated Diagnosis Comments SCAN - RADIOLOGY/IMAGING 07/04/2024 CT LUMBAR SPINE WO CONTRAST Schedule Routine, Read Routine (OP Routine) 06/24/2024 3:19 PM COMPUTER DRAFTER Degenerative cervical spinal stenosis CT THORACIC SPINE WO CONTRAST Schedule Routine, Read Routine (OP Routine) 06/24/2024 3:18 PM COMPUTER DRAFTER Degenerative cervical spinal stenosis DEXA AXIAL SKELETON BONE DENSITY 1 OR MORE SITES Schedule Routine, Read Routine (OP Routine) 06/24/2024 2:55 PM COMPUTER DRAFTER Other osteoporosis, unspecified pathological fracture presence MRI THORACIC SPINE WO CONTRAST Schedule Routine, Read Routine (OP Routine) 06/21/2024 3:15 PM COMPUTER DRAFTER Acute right-sided low back pain with sciatica, sciatica laterality unspecified MRI LUMBAR SPINE WO CONTRAST Schedule Routine, Read Routine (OP Routine) 06/21/2024 3:07 PM COMPUTER DRAFTER Acute right-sided low back pain with sciatica, sciatica laterality unspecified US AXILLARY NON-BREAST RIGHT Schedule Routine, Read Routine (OP Routine) 06/01/2024 3:06 PM COMPUTER DRAFTER Melanoma of right upper arm (HCC) HM DIABETES EYE EXAM Routine 04/30/2024 12:54 PM [...] (HCC) LIPID PANEL Routine 09/17/2023 11:54 AM COMPUTER DRAFTER Controlled type 2 diabetes mellitus with diabetic polyneuropathy, without long-term current use of insulin (CMS/HCC) (HCC) Type 2 diabetes mellitus with stage 3b chronic kidney disease, with long-term current use of insulin (HCC) Encounter for Medicare annual wellness exam SCREENING MAMMOGRAM BILATERAL W FADI Schedule Routine, Read Routine (OP Routine) 05/23/2023 2:24 PM COMPUTER DRAFTER Encounter for screening mammogram for malignant neoplasm of breast HEPATITIS C AB REFLEX RNA QUANT PCR Routine 12/13/2016 2:31 PM CDT from Last 3 Months or Most Recently Relevant to Health Maintenance Results * SCAN - RADIOLOGY/IMAGING (07/04/2024) Anatomical Region Laterality Modality Other us Provider Scanning Final Result * CT Lumbar Spine WO Contrast (06/24/2024 3:19 PM COMPUTER DRAFTER) Anatomical Region Laterality Modality Spine N/A Computed Tomogra phy 07/02/2024 8:38 AM COMPUTER DRAFTER Narrative 07/02/2024 8:45 AM COMPUTER DRAFTER EXAM DESCRIPTION: ?? CT THORACIC SPINE WO [...] AM T: ??07/02/2024 8:45 AM Report ID: [id number] Reading Location: ??[id number] Procedure Note Bin Schulz MD - 07/02/2024 [...] Bin Schulz M.D. ALMA: ALMA Report ID: [id number] Reading Location: [id number] Anson Jeffries NP IMG CT PROCEDURES Final Result * CT Thoracic Spine WO Contrast (06/24/2024 3:18 PM COMPUTER DRAFTER) Anatomical Region Laterality Modality Spine N/A Computed Tomogra phy 07/02/2024 8:38 AM COMPUTER DRAFTER Narrative 07/02/2024 8:45 AM COMPUTER DRAFTER EXAM DESCRIPTION: ?? CT THORACIC SPINE WO [...] AM T: ??07/02/2024 8:45 AM Report ID: [id number] Reading Location: ??[id number] Procedure Note Bin Schulz MD - 07/02/2024 [...] Bin Schulz M.D. ALMA: ALMA Report ID: [id number] Reading Location: [place] [address] us Anson Jeffries NP IMG CT PROCEDURES Final Result * DEXA Axial Skeleton Bone Density Multi Site (06/24/2024 2:55 PM COMPUTER DRAFTER) Anatomical Region Laterality Modality Body N/A Other 06/24/2024 10:5 4 PM COMPUTER DRAFTER Narrative 06/24/2024 10:55 PM COMPUTER DRAFTER EXAM DESCRIPTION: DEXA AXIAL SKELETON BONE DENSITY 1 OR MORE SITES REASON FOR STUDY: 74 y/o ?? year old ??F ??with given history of: ??osteoporosis ?? Osteoporosis follow up ??Post menopausal ? 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 MF: LEENA Report ID: [id number] Reading Location: [id number] us Anson Jeffries NP IMG DXA PROCEDURES Final Result * MRI Thoracic Spine WO Contrast (06/21/2024 3:15 PM COMPUTER DRAFTER) Anatomical Region Laterality Modality Spine N/A Magnetic Resonan ce 06/22/2024 11:5 2 AM COMPUTER DRAFTER Narrative 06/22/2024 12:14 PM COMPUTER DRAFTER EXAM DESCRIPTION: ?? MRI THORACIC SPINE WO [...] PM T: ??06/22/2024 12:14 PM Report ID: [id number] Reading Location: ??[id number] Procedure Note Bin Schulz MD - 06/22/2024 [...] noting disc contact with the descending right T6bqlre root. No spinal canal stenosis demonstrated on [...] Bin Schulz M.D. ALMA: ALMA Report ID: [id number] Reading Location: [id number] us Anson Jeffries EDUCATIONAL FUNDRAISING DIRECTOR IMG MRI PROCEDURES Final Result * MRI Lumbar Spine WO Contrast (06/21/2024 3:07 PM COMPUTER DRAFTER) Anatomical Region Laterality Modality Spine N/A Magnetic Resonan ce 06/22/2024 11:5 2 AM COMPUTER DRAFTER Narrative 06/22/2024 12:14 PM COMPUTER DRAFTER EXAM DESCRIPTION: ?? MRI THORACIC SPINE WO [...] PM T: ??06/22/2024 12:14 PM Report ID: [id number] Reading Location: ??[id number] Procedure Note Bin Schulz MD - 06/22/2024 [...] noting disc contact with the descending right X3inbjj root. No spinal canal stenosis demonstrated on [...] Bin Schulz M.D. ALMA: ALMA Report ID: [id number] Reading Location: [id number] us Anson Jeffries NP IMG MRI PROCEDURES Final Result * US Axillary Right Non-Breast (06/01/2024 3:06 PM COMPUTER DRAFTER) Anatomical Region Laterality Modality Upper Extremities Right Ultrasound 06/01/2024 3:26 PM COMPUTER DRAFTER Impressions 06/01/2024 3:26 PM COMPUTER DRAFTER Unremarkable right axillary ultrasound with no evidence of lymphadenopathy. Electronically signed by: Salomon Max M.D. Narrative 06/01/2024 3:26 PM COMPUTER DRAFTER EXAMINATION: US AXILLARY NON-BREAST RIGHT ORDERING HEALTHCARE [...] DILATED EYE EXAM Abnormal Historical Provider HEALTH MAINTENANCE Final Result * PET/CT FDG Skull to [...] Electronically signed by ??Cr Alexander M.D. CH: D: ??04/29/2024 10:07 AM T: ??04/29/2024 10:07 AM Report ID: [id number] Reading Location: ??[id number] Procedure Note Cr Alexander Jr., MD - [...] by Cr Alexander M.D. CH: Report ID: [id number] Reading Location: [place] [address] us Yaniv Callaway MD IMG PET PROCEDURES Final [...] it. Electronically signed by: Altaf Verduzco D.O. Anson Jeffries EDUCATIONAL FUNDRAISING DIRECTOR IMG XR PROCEDURES Final Result * (ABNORMAL) eGFR (04/22/2024 12:55 PM CDT) [facility] eGFR 43(L) >=60 mL/min/1. 73 m2 Comment: [...] was last reviewed 2021. Testing performed by: [facility], [facility], [place], [address] Blood 04/22/2024 12:5 5 PM CDT 04/22/2024 1:17 PM CDT us Yaniv Callaway MD LAB BLOOD ORDERABLES Jessica reynolds Result [facility] ([place]) 1 [facility] Department [place] [address] * Differential, auto (04/22/2024 12:55 PM CDT) Neutrophil abs 6.1 1.5 - 6.5 K/cumm Comment:Testing performed by : [facility] [address], Medical Office [address], [place] [address] Imm gran abs 0.0 0.0 - 0.1 K/cumm [facility] ([place]) Comment:Testing performed by : [facility] [address], Medical Office [facility] [address], [place] [address] Lymphocyte abs 1.8 0.8 - 3.3 K/cumm [facility] ([place]) Comment:Testing performed by : [facility] [address], Medical Office [facility] [address], [place] [address] Monocyte abs 0.6 0.2 - 0.8 K/cumm [facility] ([place]) Comment:Testing performed by : [facility] [address], Medical Office [facility] [address], [place] [address] Eosinophil abs 0.2 0.0 - 0.5 K/cumm [facility] ([place]) Comment:Testing performed by : [facility] [address], Medical Office [facility] [address], [place] [address] Basophil abs 0.1 0.0 - 0.1 K/cumm [facility] ([place]) Comment:Testing performed by : [facility] [address], Medical Office [facility] [address], [place] [address] Neutrophil pct 70.2 % [facility] ([place]) Comment: Interpretive Data Percent cell count reference ranges are not reported, since discordance with absolute values may lead to misinterpretation of CBC data. Current Interpretive Data was last revised on 2022. Testing performed by: [facility] [address], Medical Office [facility] [address], [place] [address] Imm gran pct 0.1 % [facility] ([place]) Comment: Interpretive Data Percent cell count reference ranges are not reported, since discordance with absolute values may lead to misinterpretation of CBC data. Current Interpretive Data was last revised on 2022. Testing performed by: [facility] [address], Medical Office [facility] [address], [place] [address] Lymphocyte pct 20.1 % [facility] ([place]) Comment: Interpretive Data Percent cell count reference ranges are not reported, since discordance with absolute values may lead to misinterpretation of CBC data. Current Interpretive Data was last revised on 2022. Testing performed by: [facility] [address], Medical Office [facility] [address], [place] [address] Monocyte pct 6.6 % CERCHANO CUADRA ([place]) Comment: Interpretive Data Percent cell count reference ranges are not reported, since discordance with absolute values may lead to misinterpretation of CBC data. Current Interpretive Data was last revised on 2022. Testing performed by: [facility] [address], Medical Office [facility] [address], [place] [address] Eosinophil pct 2.3 % CERNE R KHALIF ([place]) Comment: Interpretive Data Percent cell count reference ranges are not reported, since discordance with absolute values may lead to misinterpretation of CBC data. Current Interpretive Data was last revised on 2022. Testing performed by: [facility] [address], Medical Office [facility] [address], [place] [address] Basophil pct 0.7 % ANN CUADRA ([place]) Comment: Interpretive Data Percent cell count reference ranges are not reported, since discordance with absolute values may lead to misinterpretation of CBC data. Current Interpretive Data was last revised on 2022. Testing performed by: [facility] [address], Medical Office [facility] [address] [facility] [address], [place] [address] Blood 04/22/2024 12:5 5 PM CDT 04/22/2024 1:05 PM CDT us Yaniv Callaway MD LAB BLOOD ORDERABLES Jessica l Result ANN KHALIF ([place]) 1 [facility] [place] [address] * (ABNORMAL) CBC with auto differential (04/22/2024 12:55 PM CDT) WBC 8.7 3.8 - 9.9 K/cumm Comment:Testing performed by : [facility] [address], Medical Office [facility] [address], [place] [address] Hgb 10.1(L) 11.9 - 15.5 g/dL [facility] ([place]) Comment:Testing performed by : [facility] [address], Medical Office [facility] [address], [place] [address] Hct 31.3(L) 35.6 - 45.5 % [facility] ([place]) Comment:Testing performed by : [facility] [address], Medical Office [facility] [address], [place] [address] Plt 184 150 - 400 K/cumm [facility] ([place]) Comment:Testing performed by : [facility] [address], Medical Office [facility] [address] [facility] [address], [place] [address] MPV 9.5 9.1 - 12.3 fL [facility] ([place]) Comment:Testing performed by : [facility] [address], Medical Office [facility] [address] [facility] [address], [place] [address] RBC 3.53(L) 3.90 - 5.20 M/cumm [facility] ([place]) Comment:Testing performed by : [facility] [address], Medical Office [facility] [address] [facility] [address], [place] [address] MCV 88.7 81.3 - 96.4 fL [facility] ([place]) Comment:Testing performed by : [facility] [address], Medical Office [facility] [address] [facility] [address], [place] [address] MCH 28.6 27.1 - 33.3 pg [facility] ([place]) Comment:Testing performed by : [facility] [address], Medical Office [facility] [address], [place] [address] MCHC 32.3 32.3 - 35.7 g/dL [facility] ([place]) Comment:Testing performed by : [facility] [address], Medical Office [facility] [address], [place] [address] RDW CV 13.4 11.1 - 14.9 % [facility] ([place]) Comment:Testing performed by : [facility] [address], Medical Office [facility] [address], [place] [address] RDW SD 43.6 35.7 - 48.1 fL [facility] ([place]) Comment:Testing performed by : [facility] [address], Medical Office [address], [place] [address] NRBC abs Not Measured 0.00 - 0.01 K/cumm [facility] ([place]) Comment:Testing performed by : [facility] [address], Medical Office [facility] [address], [place] [address] Blood 04/22/2024 12:5 5 PM CDT 04/22/2024 1:05 PM CDT us Yaniv Callaway MD LAB BLOOD ORDERABLES Jessica reynolds Result [facility] ([place]) [address] [place] [address] Department [place] [address] * (ABNORMAL) Comprehensive metabolic panel (04/22/2024 12:55 PM CDT) Sodium 141 135 - 145 mmol/L Comment:Testing performed by : [facility], [place], [address] Potassium, pl 3.6 3.3 - 4.9 mmol/L [facility] ([place]) Comment:Testing performed by : [facility], [place], [address] Chloride 104 97 - 110 mmol/L [facility] ([place]) Comment:Testing performed by : [place], [address] CO2 26 22 - 32 mmol/L [facility] ([place]) Comment:Testing performed by : [facility], [place], [address] Anion gap 11 2 - 15 mmol/L [facility] ([place]) Comment:Testing performed by : [facility], [place], [address] BUN 16 6 - 25 mg/dL [facility] ([place]) Comment:Testing performed by : [facility], [place], [address] Creatinine 1.30(H) 0.60 - 1.10 mg/dL [facility] ([place]) Comment:Testing performed by : [place], [address] Glucose 98 70 - 199 mg/dL [facility] ([place]) Comment: Interpretive Data Fasting glucose >/= 126 [...] was last revised 2022. Testing performed by: [place], [address] Calcium 9.2 8.5 - 10.3 mg/dL [facility] ([place]) Comment:Testing performed by : [facility], [place], [address] Bilirubin, total 0.3 0.1 - 1.2 mg/dL [facility] ([place]) Comment:Testing performed by : [facility], [place], [address] Protein, pl 6.8 6.5 - 8.5 g/dL [facility] ([place]) Comment:Testing performed by : [facility], [place], [address] Albumin 3.7 3.5 - 5.0 g/dL [facility] ([place]) Comment:Testing performed by : [place], [address] Alk phos 70 40 - 130 Units/L [facility] ([place]) Comment:Testing performed by : [facility], [place], [address] ALT 9 7 - 45 Units/L [facility] ([place]) Comment:Testing performed by : [place], [address] AST 13 10 - 45 Units/L [facility] ([place]) Comment:Testing performed by : [place], [address] Blood 04/22/2024 12:5 5 PM CDT 04/22/2024 1:17 PM CDT us Yaniv Callaway MD LAB BLOOD ORDERABLES Jessica reynolds Result ANN [facility] ([place]) 1 [facility] Department [place] [address] * NM Lymphoscintigraphy (Skin Cancer) (04/20/2024 11:16 [...] AM T: ??04/20/2024 11:46 AM Report ID: [id number] Reading Location: ??[id number] Procedure Note Néstor Davis MD - 04/20/2024 [...] Néstor Davis M.D. LB: ARVIND Report ID: [id number] Reading Location: [place] [address] Kashif Kohler MD IMG NM PROCEDURES Fi nal Result * (ABNORMAL) Potassium, [...] 7:32 AM CDT 04/20/2024 7:40 AM CDT Keshawn Macias MD LAB BLOOD ORDERABLES Fin al Result [facility] [place]) 1 [facility] Department of Laboratories [place], [place] [address] * POCT glucose (04/20/2024 7:29 AM CDT) Glucose, POC 152 70 - 199 mg/dL Blood 04/20/2024 7:29 AM CDT 04/20/2024 7:29 AM CDT Kashif Kohler MD LAB POCT ORDERABLES - DEVICE Final Result ANN [facility] ([place]) 1 [facility] [place] [address] * POCT glucose (04/13/2024 11:57 AM CDT) Glucose, POC 156 70 - 199 mg/dL Blood 04/13/2024 11:5 7 AM CDT 04/13/2024 11:57 AM CDT Karlene Ramirez MD LAB POCT ORDERABLES - MUKESH CE Final Result Performing Organization Address [facility] Co de Phone Number ANN [facility] ([place]) 1 [facility] [place] [address] * Colonoscopy (04/13/2024 11:49 AM CDT) Anatomical Region Laterality Modality Other Narrative Procedure Note Kralene Ramirez MD - 04/13/2024 11:49 AM CDT [facility] Patient Name: Criss Ly Procedure Date: 04/13/2024 11:49 AM Date of : 1950 Admit Type: Outpatient Age: 73 Gender: Female Attending MD: Karlene Ramirez M.D. Room: [facility] ENDOSCOPY ROOM 1 Note Status: Finalized [...] under direct vision. The Pediatric Colonoscope [id number]-H190L [id number] was introducedthrough the anus and advanced to [...] 11:49 AM Procedure Code(s): --- Professional --- 80437, Colonoscopy, flexible; with removal of tumor(s), polyp(s), or other lesion(s) by snare technique 81205, 59, Colonoscopy, flexible; with biopsy, single or multiple Diagnosis Code(s): --- Professional --- Z80.0, Family history of malignant neoplasm of digestive organs Z86.010, Personal history of colonic polyps D12.0, Benign neoplasm of cecum D12.5, Benign neoplasm of sigmoid colon K64.8, Other hemorrhoids D12.4, Benign neoplasm of descending colon D12.3, Benign neoplasm of transverse colon (hepatic flexure orsplenic flexure) CPT copyright 2020 [employer]. All rights reserved. The codes documented in this report are preliminary and upon electrical checkout mechanic reviewmay be revised to meet current compliance requirements. Recognized by the [employer] for promoting quality in endoscopy Karlene Ramirez MD ENDOSCOPY PROCEDURES Final Result * Surgical pathology (04/13/2024 10:20 AM CDT) Tissue (Polyp(s), colon/colorectal, esophageal, gastric) 04/13/2024 1:10 PM CDT Tissue (Polyp(s), colon/colorectal, esophageal, gastric) 04/13/2024 1:17 PM CDT Tissue (Polyp(s), colon/colorectal, esophageal, gastric) 04/13/2024 1:35 PM CDT Narrative PATHOLOGY [facility] ([place]) - 04/15/2024 1:47 PM CDT EPIC results best viewed via link to PDF [facility] Department of Pathology [address] [place] [address] Note to Patients: This report may contain [...] explain the details. Final Report Patient Name: ??CRISS LY Address: ??[address] [place] [address] , ??[place], [place] ??[address]- Gender: ??F : ??1950 (Age: 73) Service: ??Gastro Location: ??[facility] Hospital #: ??[id number] Patient Type: ??[facility] Accession # ?[id number] Taken: ??04/13/2024 Received: ??04/14/2024 Accessioned: ??04/14/2024 Reported: [...] three formalin containers labeled CRISS LY . A. ??The first container is labeled descending polyp [...] inked and bisected. All in C. T.A. Ulises, R.N., P.A./Raffi Sauceda, M.D. REPORT IMAGES AND SCANNED DOCUMENTS, IF INCLUDED, ONLY VIEWABLE IN PDF VERSION OF REPORT The performance characteristics of some immunohistochemical stains, fluorescence in-situ hybridization tests and immunophenotyping by flow cytometry cited in this report (if any) were determined by the Surgical Pathology Department at [facility] as part of an ongoing quality assurance practice manager program and in compliance with federally mandated [...] characteristics determined by the Surgical Pathology Department [facility]. ??It has not been cleared or approved by the U. S. Food and Drug Administration. Note for decalcified specimens: This assay has not been validated on decalcified tissues. Results should be interpreted with caution given the possibility of false negativity on decalcified specimens Karlene Ramirez MD LAB PATHOLOGY ORDERABLES F inal Result PATHOLOGY [facility] ([place]) 1 [place] [address] * (ABNORMAL) Albumin Creatinine Ratio, Urine (02/09/2024 9:50 AM CDT) Albumin Ur 54.8 mg/L Comment: Interpretive Data No reference range established. Current interpretive data was last revised 2018. Testing performed by: [address] [address] Creatinine Ur 59.2 mg/dL ANN [facility] ([place]) Comment: Interpretive Data No reference range established. Current interpretive data was last revised 2018. Testing performed by: [address] [address] Albumin Creatinine Ratio, Ur 93(H) 1 - 29 mg/g ANN [facility] ([place]) Comment:Testing performed by : [facility], [address] [place] [address]., [address] Urine 02/09/2024 9:50 AM CDT 02/09/2024 1:41 PM CDT Tereso England MD LAB URINE ORDERABLES Jessica l Result ANN [facility] ([place]) 1 [facility] [place] [address] * (ABNORMAL) Hemoglobin A1c (02/09/2024 9:50 AM CDT) Hgb A1C 6.9(H) 4.0 - 5.6 % Comment:Testing performed by : [facility], [address] [place] [address], [address] Estimated Average Glucose 151 mg/dL ANN [facility] ([place]) Comment: The ADA recommends reporting an estimated Average Glucose (eAG) with all Hemoglobin A1c results using the equation derived from a study of 507 normal and diabetic adults. ??Minority populations were underrepresented and children were not included. ?? (Diabetes Care 31:2479-1142, 2008). ??The eAG is not equivalent to a fasting glucose. Testing performed by: [facility], [address] [place] [address]., [address] Blood 02/09/2024 9:50 AM CDT 02/09/2024 1:41 PM CDT Tereso England MD LAB BLOOD ORDERABLES Jessica l Result ANN [facility] ([place]) 1 [facility] [place] [address] * Lipid panel (09/17/2023 11:54 AM COMPUTER DRAFTER) Cholesterol 134 30 - 199 mg/dL Comment: [...] last revised on 2018. Testing performed by: [address] [address] Triglycerides 121 <=149 mg/dL ANN K[facility]) Comment: Interpretive Data Ages < or = [...] last revised on 2018. Testing performed by: [facility], [address] [place] [address]., [address] HDL 45 >=40 mg/dL ANN KOROMA) Comment: Interpretive Data Ages < or = [...] last revised on 2018. Testing performed by: [facility], [address] [place] [address]., [address] LDL, calculated 65 <=129 mg/dL ANN CUADRA [...] last revised on 2018. Testing performed by: [facility], [address] [place] [address], [place]., [address] Non-HDL Cholesterol 89 mg/dL ANN CUADRA ([place]) [...] last revised on 2018. Testing performed by: [facility], [address] [place] [address]., [address] Chol/HDL ratio 3 ANDRIA Richard KHALIF ([place]) Comment:Testing performed by : [facility], [address] [place] [address]., [address] Blood 09/17/2023 11:5 4 AM COMPUTER DRAFTER 09/17/2023 5:50 PM COMPUTER DRAFTER us Sarah Carter NP LAB BLOOD ORDERABLES Final Result ANN KHALIF ([place]) 1 [facility] Department of Laboratories [place] [id number] * SCREENING MAMMOGRAM BILATERAL W FADI (05/23/2023 2:24 PM COMPUTER DRAFTER) Anatomical Region Laterality Modality Breast Bilateral Mammography 05/23/2023 3:54 PM COMPUTER DRAFTER Impressions 05/23/2023 3:54 PM COMPUTER DRAFTER No mammographic evidence of malignancy (on limited assessment, see above). A 1 year screening mammogram is recommended. BI-RADS: 2 - Benign. The patient has been or will be contacted. The patient will be entered into a reminder system with a target due date of 1 year for her next mammogram. Electronically signed by: Salomon Max M.D. Narrative 05/23/2023 3:54 PM COMPUTER DRAFTER EXAMINATION: SCREENING MAMMOGRAM BILATERAL W FADI ORDERING [...] CDT) Hep C Ab Negative Negative ANN CINTHYA Blood specimen (specimen) 12/13/2016 2:31 PM CDT 12/13/2016 7:01 PM CDT Clayton Sandoval MD LAB MICROBIOLOGY - GENER AL ORDERABLES Final Result ANN [id number] Department [place] [address] from Last 3 Months or Most Recently Relevant to Health Maintenance Insurance [facility] Member Subscriber Plan / Payer (Ef fective 2014-Present) Name:Criss Ly Relation to Subscriber:Self Name:Criss Ly Payer ID:[id number] (NAIC) Type:MEDICARE RISK OTHER Address: [address] [facility] [place] [address] [facility] Advance Directives For more information, please contact: [phone] * Full Code (Latest Code Status on [...] 9:25 AM 12/22/2018 3:42 PM Care Teams Principal Examiner Relationship Specialty Start Date End [place] [address] PCP - General 08/03/19
--- OUTSIDE RECORDS SUMMARY | 2024-07-11 22:32 | XMS_ITS | Encounter Summary ---
Author Organization [facility] Healthcare Address [address] [place] [address] Care Team Providers Care Chicken Boner Name Role Phone Lalito England MD Primary Care Provider [phone] [phone] Encounter Details Date Type Department Care Team (Late st Contact Info) Description 06/23/2024 Telephone [facility] [address] [place] [address] Miya Quevedo Social History Tobacco Use Types Packs/Day Years Used Date Smoking Tobacco: Never Passive Smoke Exposure: Past Smokeless Tobacco: Never Alcohol Use Standard Drinks/Week Comments Yes 0 (1 standard drink = 0.6 oz pur e alcohol) occasional [facility] Utilities Answer Date Recorded In the past [...] often do you attend chur ch or hinduism services? Never 01/19/2024 Do you belong to any clubs o r organizations such as jewish groups, unions, fraternal or athletic groups, or [...] place to sleep or slept in a longterm (including now)? No 07/16/2022 Housing Stability Vital Sign Answer Albaro e Recorded In the last 12 months, was t here a time when you were not able to pay the mortgage or rent on time? No 01/19/2024 In the past 12 months, how m any times have you moved where you were living? 0 01/19/2024 At any time in the past 12 m [facility], were you homeless or living in a longterm (including now)? No 01/19/2024 Personal Safety Answer Date Recorded Have you ever been in or are you currently in a harmful physical or emotional relationship or is someone making you feel afraid or unsafe? Denies 04/20/2024 Comments No Sex and Gender Information Value Date Recorded Sex Assigned at Not on file Legal Sex Female 11:52 PM VARNISHING UNIT TOOL SETTER Gender Identity Not on file Sexual Orientation Not on file documented as of this encounter Miscellaneous Notes * Telephone Encounter - Miya Quevedo - 06/23/2024 2:[address] APPOINTMENT REMINDER CONFIRMED WITH PATIENT. ISHING UNIT TOOL SETTER documented in this encounter Plan of Treatment Not on file documented as of this encounter Visit Diagnoses Not on filedocumented in this encounter Care Teams Chicken Boner Relationship Specialty Start Date End Date Lalito England [place] [address] PCP - General 08/03/19 documented as of this encounter
--- OUTSIDE RECORDS SUMMARY | 2024-07-11 22:32 | XMS_ITS | Encounter Summary ---
Author Organization [facility] Healthcare Address [address] [place] [address] Care Team Providers Care Lead Burner Name Role Phone Lalito England MD Primary Care Provider [phone] [phone] Reason for Visit * Reason Onset Date Comments Referral Request 05/04/2024 Encounter Details Date Type Department Care Team (Late st Contact Info) Description 05/04/2024 Telephone [facility] [address] [facility] [place] [address] Lalito England MD [address] [place] [address] Referral Request Social History Tobacco Use Types Packs/Day Years Used Date Smoking Tobacco: Never Passive Smoke Exposure: Past Smokeless Tobacco: Never Alcohol Use Standard Drinks/Week Comments Yes 0 (1 standard drink = 0.6 oz pur e alcohol) occasional [facility] Utilities Answer Date Recorded In the past 12 months has [employer], gas, oil, or water [employer] threatened to shut off services in your [...] week 01/19/2024 How often do you attend [facility] or jain services? 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 Brennan Castillo. Previous referral to Dr. Castillo ([id number]) is still good through 08/15/2024. Lindy at [facility] pre-arrival is aware. * Telephone Encounter - Adamaris Waters - 05/04/2024 10:40 AM CDT Referral Provider Name: Anson Jeffries-MARKOS-No collaborating provider Specialty: Neurosurgery Address: [address] [place] [address], Zip: [place] [address] Diagnosis Code/Symptom/Reason Patient is being seen: M54.40 and M48.02 Date of Appointment: 05/17/24 at 7:00 am NPI#: [id number] Tax ID#: [id number] Is insurance in chart up to date? Yes, [employer]ence Additional Comments: [employer] Insurance Referral Does message need to be routed? Yes-Action Needed documented in this encounter Plan of Treatment Not on file documented as of this encounter Visit Diagnoses Not on filedocumented in this encounter Care Teams Lead Burner Relationship Specialty Start Date End Date Lalito England MD [address] [place] [address] PCP - General 08/03/19 documented as of this encounter
--- OUTSIDE RECORDS SUMMARY | 2024-07-11 22:32 | XMS_ITS | Encounter Summary ---
Author Organization [facility] Healthcare Address [address] [place] [address] Care Team Providers Care Bank Analyst Name Role Phone Lalito England MD Primary Care Provider [phone] [phone] Reason for Referral * Consultation (Routine) - Authorized Specialty Diagnoses / Procedures Referred By Contac t Referred To Contact Neurosurgery Diagnoses Degenerative cervical spinal stenosis Sarah Carter NP [address] [place] [address] Phone: tel: fax: Steve Cody MD [address] [facility] [address] [place] [address] Phone: tel: fax: Referral ID Status Reason Start Date Expiration Date Visits Requested Visits Authorized [id number] Authorized Specialty Services Required 07/13/2024 12 12 Question Answer Please select the performing region: [facility] (All Locations) [167] To provider: STEVE CODY [[id number]] # of visits: 1 RIAL EXPEDITER Reason for Visit * Reason Onset Date Comments Referral Request 06/08/2024 Encounter Details Date Type Department Care Team (Late st Contact Info) Description 06/08/2024 Telephone [facility] [address] [facility] [place] [address] Lalito England MD [address] [place] [facility] Referral Request Social History Tobacco Use Types Packs/Day Years Used Date Smoking Tobacco: Never Passive Smoke Exposure: Past Smokeless Tobacco: Never Alcohol Use Standard Drinks/Week Comments Yes 0 (1 standard drink = 0.6 oz pur e alcohol) occasional [facility] Utilities Answer Date Recorded In the past [...] often do you attend chur ch or christianity services? 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 Steve Cody Specialty: Neurosurgeon Address: [address] [place] [address], Zip: [place] [address] Diagnosis Code/Symptom/Reason Patient is being seen: M48.02 Date of Appointment: 06/24/24 NPI#: [id number] Tax ID#: [id number] Is insurance in chart up to date? Yes, [employer]ence Additional Comments: Needs insurance referral. Does message need to be routed? Yes-Action Needed RIAL EXPEDITER documented in this encounter Plan of Treatment Scheduled Referrals Name Type Priority Associated Diagnoses Order Schedule Ambulatory referral to Neurosurgery Outpatient Referral Routine Degenerative cervical spinal stenosis Expected: 06/22/2024 (Approximate), Expires: 06/08/2025 documented as of this encounter Visit Diagnoses Diagnosis Degenerative cervical spinal stenosis- Primary Spinal stenosis in cervical region documented in this encounter Care Teams Bank Analyst Relationship Specialty Start Date End Date [place] [address] PCP - General 08/03/19 documented as of this encounter
--- OUTSIDE RECORDS SUMMARY | 2024-07-11 22:32 | XMS_ITS | Encounter Summary ---
Author Organization [facility] Healthcare Address [address] [place] [address] Care Team Providers Care Wrapping Clerk Name Role Phone Lalito England MD Primary Care Provider [phone] Reason for Referral * Consultation (Routine) - Authorized Specialty Diagnoses / Procedures Referred By Contac t Referred To Contact Oncology Diagnoses Melanoma of right upper arm (HCC) Lalito England MD [address] [place] [address] Phone: tel: fax: Maxine Covington MD [address] [facility] [address] [place] [address] Phone: tel: fax: Referral ID Status Reason Start Date Expiration Date Visits Requested Visits Authorized [id number] Authorized Specialty Services Required 07/13/2024 12 12 Question Answer Please select the performing region: [facility] (All Locations) [167] Please select the performing department: [facility] [[email or web address]] IM ONC [id number] [[id number]] Is this referral for Breast Health Multi-Disciplinary Clinic? No Does the patient have a diagnosis of a Head and Neck cancer? No To provider: MAXINE COVINGTON [[id number]] # of visits: 1 Reason for Visit * Reason Onset Date Comments Referral Request 04/28/2024 Encounter Details Date Type Department Care Team (Late st Contact Info) Description 04/28/2024 Telephone [facility] [address] [place] [address] Lalito England MD [address] [place] [address] Referral Request Social History Tobacco Use Types Packs/Day Years Used Date Smoking Tobacco: Never Passive Smoke Exposure: Past Smokeless Tobacco: Never Alcohol Use Standard Drinks/Week Comments Yes 0 (1 standard drink = 0.6 oz pur e alcohol) occasional [facility] Utilities Answer Date Recorded In [...] week 01/19/2024 How often do you attend [facility] or alevism services? Never 01/19/2024 Do you belong to any clubs o r organizations such as moravian groups, unions, fraternal or athletic groups, or [...] place to sleep or slept in a fci (including now)? No 07/16/2022 Housing Stability Vital Sign Answer Albaro e Recorded In the last 12 months, was t here a time when you were not able to pay the mortgage or rent on time? No 01/19/2024 In the past 12 months, how m any times have you moved where you were living? 0 01/19/2024 At any time in the past 12 m [facility], were you homeless or living in a fci (including now)? No 01/19/2024 Personal Safety Answer Date Recorded Have you ever been in or are you currently in a harmful physical or emotional relationship or is someone making you feel afraid or unsafe? 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 Covington and is in Epic. * Telephone Encounter - Ashley Taylor - 04/28/2024 11:03 AM CDT Referral Provider Name: Dr Maxine Covington Specialty: Oncology Address: [address] [place] [address], [address], Zip: [place] [address] Diagnosis Code/Symptom/Reason Patient is being seen: C43.61 Date of Appointment: 04/22/2024, 05/10/2024 and for 6 additional Visits NPI#: [id number] Tax ID#: [id number] Is insurance in chart up to date? yes Additional Comments: [employer] Insurance referral requested. Does message need to be routed? Yes-Action Needed * Telephone Encounter - Stormy Ibrahim - 04/28/2024 8:16 AM CDT Received fax request from Dr. Maxine Covington office for Oncology referral Appt: 04/22/24 Dx: C43.61 documented in this encounter Plan of Treatment Scheduled Referrals Name Type Priority Associated Diagnoses Order Schedule Ambulatory referral to Oncology Outpatient Referral Routine Melanoma of right upper arm (HCC) Expected: 05/12/2024 (Approximate), Expires: 04/28/2025 documented as of this encounter Visit Diagnoses Diagnosis Melanoma of right upper arm (HCC)- Primary documented in this encounter Care Teams Wrapping Clerk Relationship Specialty Start Date End Date [place] [address] PCP - General 08/03/19 documented as of this encounter
--- OUTSIDE RECORDS SUMMARY | 2024-07-11 22:32 | XMS_ITS ---
Author Organization [facility] Address [address] [place] [address] Care Team Providers Care Sand Technician Name Role Phone Lalito England MD Primary Care Provider [phone] [phone] Active Problems Problem Noted Date Diagnosed Date Stage II pressure ulcer of left buttock 05/26/20 Assessment & Plan (05/26/2024 2:40 PM DIRECTOR TECHNICAL): Stable. Continue use of doughnut especially when [...] 05/12/2024 Assessment & Plan (05/26/2024 2:40 PM DIRECTOR TECHNICAL): Visit preventive in nature. We reviewed medications, [...] hyperglycemia, with long-term current use of insulin ([facility]) 02/09/2024 Assessment & Plan (02/09/2024 9:48 [...] and renal disease with congestive heart failure ([facility]) 01/06/2024 Assessment & Plan (05/12/2024 10:20 [...] dsyphagia. Continue on PPI and will folwlore sponse. Hypertension secondary to endocrine disorders Spinal stenosis, lumbar cosmo on without neurogenic claudication 01/18/2022 Assessment & Plan (02/09/2024 9:48 AM CDT): Looking forward to continuing therapy at home to increase low back pain and mobility. Type 2 diabetes mellitus wit h diabetic neuropathy, unspecified 01/18/2022 Assessment & Plan (05/12/2024 10:19 AM CDT): Reviewed skin care and will follwor esponse. Reivewed aggressive glycemic cotnrol. Assessment & Plan (10/05/2023 7:02 AM CDT): Continues on gabapentin and chronic opioid therapy. Patient denies any analgesic complications compliant with medication regimen. Unsteadiness on feet 01/18/2022 Type 2 diabetes mellitus with hyperlipidemia 01/2022 Assessment & Plan (05/26/2024 2:39 PM DIRECTOR TECHNICAL): Lipid panel ordered. Continue with simvastatin. Will [...] kidney disease) stage 4, GFR 15-29 ml/min ([facility]) 08/23/2021 Assessment & Plan (05/12/2024 10:18 AM CDT): Contniue f/u with nephrology. WIll ontior resopnse to onoging losartan and reviewed blood pressure management recommendations. Morbid (severe) obesity due to excess calories 0 08/22/2021 DDD (degenerative disc disease), lumbar 08/17/19 Degenerative lumbar spinal stenosis 08/17/2021 Assessment & Plan (05/26/2024 2:39 PM DIRECTOR TECHNICAL): Continue f/u with Anson Jeffries and team at [facility] spine for discussion of possible intervention. Will also place referral to [facility] to see if they can provide help with transportation. Assessment & Plan (05/12/2024 10:17 AM CDT): Continue f/u with Anson Jeffries and team at [facility] spine for discussion of possible intervention. Lumbar post-laminectomy syndrome 08/17/2021 Persistent vomiting 11/17/2018 Overview (11/17/2018): Added automatically from request for surgery [id number] Hx of colonic polyps 09/04/2018 Overview (09/04/2018): Added automatically from request for surgery [id number] Family hx of colon cancer 09/04/2018 Overview (09/04/2018): Added automatically from request for surgery [id number] Healthcare maintenance 12/27/2016 Medication management 12/27/2016 Idiopathic [...] (hypertension) Assessment & Plan (05/26/2024 2:38 PM DIRECTOR TECHNICAL): Normotensive. Continue clonidine, furosemide, losartan. Continue heart [...] the present time. Reviewed importance of hydration. Current Oncology Plans No current plan information found. Past Plans No past plan information found. Radiation Treatments * No radiation treatments are documented for this patient in [facility]. Treatments may have been administered in another system. Lifetime Dose Tracking * Chemical Lifetime Dose Automatic Entry Manual Entr y Fluoro Time 1.325 minutes 1.325 minutes 0 minutes Air kerma at the reference point (Ka,r) 57.79 mGy 5 7.79 mGy 0 mGy DLP 568 mGycm 568 mGycm 0 mGycm Resolved Problems Problem Noted Date Diagnosed Date Resolved Date Melanoma of right upper arm 10/27/2023 04/22/2024 Assessment & Plan (02/09/2024 9:46 AM CDT): Anticipating definitive excisional therapy with Dr. Pickett tomorrow at [facility].
--- OUTSIDE RECORDS SUMMARY | 2024-07-11 22:32 | XMS_ITS | Encounter Summary ---
Author Organization [facility] Healthcare Address [address] [place] [address] Care Team Providers Care Ex Assistant/Program Director Name Role Phone Lalito England MD Primary Care Provider [phone] Reason for Referral * Consultation (Routine) - Closed Specialty Diagnoses / Procedures Referred By Contac t Referred To Contact Case Management Diagnoses Type 2 diabetes mellitus with hyperlipidemia (HCC) Annual physical exam Type 2 diabetes mellitus with stage 3b chronic kidney disease, with long-term current use of insulin (HCC) Degenerative lumbar spinal stenosis Sarah Carter NP [address] [place] [address] Phone: tel: fax: [facility] Care Organization [address] [place] [id number] Phone: tel: fax: Referral ID Status Reason Start Date Expiration Date V isits Requested Visits Authorized [id number] Closed Specialty Services Required 05/26/2024 06/25/2025 1 1 Question Answer Is this referral to Care Mangement for [facility] or [facility]: [facility] # of visits: 1 HOUSE SPECIALIST Reason for Visit * Reason Comments Diabetes Pt due for a foot ex am and dilated eye exam. Pt had an eye exam / at [facility]. Annual Exam Pt here for her [facility] care ACV/ PCV only. Encounter Details Date Type Department Care Team (Late st Contact Info) Description 05/26/2024 1:30 PM WAREHOUSE SPECIALIST Office Visit [facility] [address] [place] [address] Sarah Carter, RELOCATION COORDINATOR [address] [place] [address] Type 2 diabetes mellitus with hyperlipidemia (HCC) (Primary Dx); Hypertension associated with diabetes (HCC); Annual physical exam; Degenerative lumbar spinal stenosis; Stage II pressure ulcer of left buttock (HCC); Class 1 obesity due to excess calories with serious comorbidity and body mass index (BMI) of 34.0 to 34.9 in adult Social History Tobacco Use Types Packs/Day Years Used Date Smoking Tobacco: Never Passive Smoke Exposure: Past Smokeless Tobacco: Never Alcohol Use Standard Drinks/Week Comments Yes 0 (1 standard drink = 0.6 oz pur e alcohol) occasional [facility] Utilities Answer Date Recorded In the past 12 months has [employer], gas, oil, or water [employer] threatened to shut off services in your [...] 01/19/2024 How often do you attend chur or church services? Never 01/19/2024 Do you belong to any clubs o r organizations such as yazdanism groups, unions, fraternal or athletic groups, or [...] any time in the past 12 m [facility], were you homeless or living in a [...] on file Legal Sex Female 11:52 PM WAREHOUSE SPECIALIST Gender Identity Not on file Sexual Orientation Not on file documented as of this encounter Last Filed Vital Signs Vital Sign Reading Time Taken Comments Blood Pressure 110/54 05/26/2024 1:34 PM WAREHOUSE SPECIALIST Pulse 67 05/26/2024 1:34 PM WAREHOUSE SPECIALIST Temperature 36.2 ??C (97.1 ??F) 05/26/2024 1:34 PM CS T Respiratory Rate 20 05/26/2024 1:34 PM WAREHOUSE SPECIALIST Oxygen Saturation 96% 05/26/2024 1:34 PM WAREHOUSE SPECIALIST Inhaled Oxygen Concentration - - Weight 96.8 kg (213 lb 6.4 oz) 05/26/2024 1:34 P M WAREHOUSE SPECIALIST Height 167.6 cm (5' 5.98 ) 05/26/2024 1:34 PM CS T Body Mass Index 34.46 05/26/2024 1:34 PM WAREHOUSE SPECIALIST documented in this encounter Progress Notes * Sarah Carter, RELOCATION COORDINATOR - 05/26/2024 1:30 PM CST Images from the original note were not included. Patient ID: Criss Ly is a 74 y.o. female Chief Complaint. Chief Complaint Patient presents with Diabetes Pt due for a foot exam and dilated eye exam. Pt had an eye exam 4/3 at [facility]. Annual Exam Pt here for her medicare ACV/ PCV only. HPI: Criss Ly presents today for PCV. No new complaints today. States she has doing well. Continues with chronic back pain. Difficulty with transportation. Most of the time is in a wheelchair. Has pressure ulcer on her left buttock. Recently purchased a donut which seems to be helping. Applying topical skin protectant. Reports taking her medications as prescribed. Very nice lady. 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 2008.; Comments: J 07/25/2015 - HX OTHER MEDICAL Breast reduction 2009.; Comments: [facility] 07/25/2015 - HX OTHER MEDICAL left hip [...] ARTHROPLASTY Right 08/27/2001 Right TKA - [facility] MEDICATIONS : acetaminophen 500 mg capsule albuterol HFA (PROVENTIL HFA,VENTOLIN HFA,PROAIR HFA) 90 mcg/actuation inhaler apixaban (ELIQUIS) 5 mg tablet aspirin 81 mg enteric coated tablet blood glucose diagnostic (Contour Next Test Strips) strip blood-glucose meter (CONTOUR NEXT USB METER) misc calcium carbonate-vitamin D3 1,500 mg (600 mg elemental)-500 unit capsule cloNIDine (CATAPRES) 0.1 mg tablet docusate sodium (COLACE) 100 mg capsule finasteride (PROSCAR) 5 mg tablet fluticasone propionate (FLONASE) 50 mcg/actuation nasal spray fluticasone propionate (FLOVENT HFA) 110 mcg/actuation inhaler furosemide (LASIX) 20 mg tablet gabapentin (NEURONTIN) 100 mg capsule HYDROcodone-acetaminophen (NORCO) 5-325 mg per tablet insulin aspart (NovoLOG) 100 unit/mL (3 mL) pen for injection lancets (MICROLET LANCET) misc losartan (COZAAR) 25 mg tablet montelukast (SINGULAIR) 10 mg tablet naloxone (NARCAN) 4 mg/actuation spray,non-aerosol nystatin powder omeprazole (PriLOSEC) 20 mg capsule pen needle, diabetic (BD Ultra-Fine Mini Pen Needle) 31 gauge x 3/16 needle polyethylene glycol (MIRALAX) 17 gram packet semaglutide (Ozempic) 2 mg/dose (8 mg/3 mL) pen injector injection SEMGLEE-yfgn 100 unit/mL (3 mL) pen for injection simvastatin (ZOCOR) 40 mg tablet triamcinolone (KENALOG) 0.1 % cream clobetasoL (TEMOVATE) 0.05 % cream ondansetron ODT (ZOFRAN-ODT) 8 mg disintegrating tablet senna-docusate (PERICOLACE) 8.6-50 mg Nyamyc powder No Known Allergies Social History Tobacco Use Smoking status: Never Passive exposure: Past Smokeless tobacco: Never Substance and Sexual Activity Drug use: Never Sexual activity: Defer Alcohol Use: Not At Risk (04/14/2024) AUDIT-C Frequency of Alcohol Consumption: Never Average Number of Drinks: Patient does not drink Frequency of Binge Drinking: Never Family History Problem Relation Age of Onset Diabetes Mother Diabetes mellitus; Hypertension Mother Hypertension; Heart disease Father Heart disease; Heart failure Father CHF; Cause of : CHF Colon cancer Father Diabetes Brother Diabetes mellitus; Cancer Brother Lymphoma Brother Cancer -lymphoma; Stroke Brother Hypertension Brother Breast cancer Neg Hx Ovarian cancer Neg Hx Thyroid cancer Neg Hx Review of Systems: Review of Systems Constitutional: Negative for fever. Cardiovascular: Negative for chest pain. Gastrointestinal: Negative for abdominal pain. Genitourinary: Negative for dysuria and pelvic pain. Musculoskeletal: Positive for back pain. Neurological: Positive for weakness, numbness and headaches. Vitals: 05/26/24 1334 BP: 110/54 BP Location: Right arm Patient Position: Sitting Pulse: 67 Resp: 20 Temp: 36.2 ??C (97.1 ??F) TempSrc: Temporal SpO2: 96% Weight: 96.8 kg (213 lb 6.4 oz) Height: 167.6 cm (5' 5.98 ) Physical Exam: Physical Exam Vitals reviewed. Constitutional: General: [...] Edema present. Left lower leg: Edema present. Feet: Right Foot: Monofilament exam: abnormal. Left Foot: Monofilament exam: abnormal. Lymphadenopathy: Cervical: No cervical adenopathy. Skin: Findings: No erythema. Neurological: Mental Status: She is alert and oriented to person, place, and time. Motor: Weakness present. Gait: Gait abnormal. Comments: Ambulates with walker Psychiatric: Thought Content: Thought content normal. Assessment/Plan Diagnoses and all orders for this visit: Type 2 diabetes mellitus with hyperlipidemia (HCC) (Primary) Assessment & Plan: Lipid panel ordered. Continue with simvastatin. Will continue to monitor. Orders: - Lipid panel; Future - Ambulatory referral to Care Management; Future Hypertension associated with diabetes (HCC) Assessment & Plan: Normotensive. Continue clonidine, furosemide, losartan. Continue heart healthy diet. Will continue to monitor. Annual physical exam Assessment & Plan: Visit preventive in nature. We reviewed medications, chronic conditions, risk factors, lifestyle recommendations. Reviewed immunization recommendations. Follow-up in 6 months for chronic conditions and 1 year for annual wellness. Orders: - Ambulatory referral to Care Management; Future Degenerative lumbar spinal stenosis Assessment & Plan: Continue f/u with Anson Jeffries and team at [facility] spine for discussion of possible intervention. Will also place referral to ACO to see if they can provide help with transportation. Orders: - Ambulatory referral to Care Management; Future Stage II pressure ulcer of left buttock (HCC) Assessment & Plan: Stable. Continue use of doughnut especially when in wheelchair. Continue with skin protectant. Continue monitoring. Red flags reviewed. Class 1 obesity due to excess calories with serious comorbidity and body mass index (BMI) of 34.0 to 34.9 in adult Reviewed heart healthy diet. Recommend chair yoga. All past family, medical, and social history were reviewed and updated in the EMR as well as current medications. Patient offered no further complaints and was in agreement with plan of care. Patientwas advised regarding dosage, use, and side effects of any new medications. Patient was advised to f/u in office with any worsening or little to no improvement of symptoms. Patient was advised to follow-up regarding the results of testing ordered in office today and that they should hear from us regarding the results in 2-3 business days, discussed benefits of MyChart in regard to patient experience. The patient was given the opportunity to have all questions answered today and was in agreementwith the plan of care. BMI Follow-up includes: exercise counseling. Body mass index is 34.46 kg/m??. There may be grammatical errors in this note due to use of voice recognition software. Sarah Carter NP HOUSE SPECIALIST documented in this encounter Miscellaneous Notes * Assessment & Plan Note - Sarah Carter NP - 05/26/2024 2:40 PM WAREHOUSE SPECIALIST Associated Problem(s): Stage II pressure ulcer of left buttock (HCC) Stable. Continue use of doughnut especially when in wheelchair. Continue with skin protectant. Continue monitoring. Red flags reviewed. HOUSE SPECIALIST * Assessment & Plan Note - Sarah Carter NP - 05/26/2024 2:40 PM WAREHOUSE SPECIALIST Associated Problem(s): Annual physical exam Visit preventive in nature. We reviewed medications, chronic conditions, risk factors, lifestyle recommendations. Reviewed immunization recommendations. Follow-up in 6 months for chronic conditions and 1 year for annual wellness. HOUSE SPECIALIST * Assessment & Plan Note - Sarah Carter NP - 05/26/2024 2:39 PM WAREHOUSE SPECIALIST Associated Problem(s): Type 2 diabetes mellitus with hyperlipidemia (HCC) Lipid panel ordered. Continue with simvastatin. Will continue to monitor. HOUSE SPECIALIST * Assessment & Plan Note - Sarah Carter NP - 05/26/2024 2:39 PM WAREHOUSE SPECIALIST Associated Problem(s): Degenerative lumbar spinal stenosis Continue f/u with Anson Jeffries and team at [facility] spine for discussion of possible intervention. Will also place referral to [facility]CO to see if they can provide help with transportation. HOUSE SPECIALIST * Assessment & Plan Note - Sarah Carter NP - 05/26/2024 2:38 PM WAREHOUSE SPECIALIST Associated Problem(s): Hypertension associated with diabetes (HCC) Normotensive. Continue clonidine, furosemide, losartan. Continue heart healthy diet. Will continue to monitor. HOUSE SPECIALIST documented in this encounter Plan of Treatment Scheduled Orders Name Type Priority Associated Diagnoses Orde r Schedule Lipid panel Lab Routine Type 2 diabetes mellitus with hyperlipidemia (HCC) Expected: 05/14/2024, Expires: 05/14/2025 Scheduled Referrals Name Type Priority Associated Diagnoses Orde r Schedule Ambulatory referral to Care Management Outpatient Referral Routine Type 2 diabetes mellitus with hyperlipidemia (HCC) Annual physical exam Degenerative lumbar spinal stenosis Expected: 06/09/2024 (Approximate), Expires: 05/26/2025 documented as of this encounter Visit Diagnoses Diagnosis Type 2 diabetes mellitus with hyperlipidemia (HCC)- Primary Hypertension associated with diabetes (HCC) Unspecified essential hypertension Annual physical exam Routine general medical examination at a health care facility Degenerative lumbar spinal stenosis Spinal stenosis of lumbar region Stage II pressure ulcer of left buttock (HCC) Class 1 obesity due to excess calories with serious comorbidity and body mass index (BMI) of 34.0 to 34.9 in adult documented in this encounter Discontinued Medications Medication Sig Discontinue Reason Start Date End Da te Nyamyc powder Apply topically mattress spring encaser before breakfast Alternate therapy 10/22/2023 05/26/2024 documented as of this encounter Historical Medications * This list may reflect changes made after this encounter. nystatin powder Apply topically 4 (four) times a day added in this encounter Care Teams Ex Assistant/Program Director Relationship Specialty Start Date End Date Lalito England MD [address] [place] [address] PCP - General 08/03/19 documented as of this encounter
--- OUTSIDE RECORDS SUMMARY | 2024-07-11 22:32 | XMS_ITS | Encounter Summary ---
Author Organization [facility] Healthcare Address [address] [place] [address] Care Team Providers Care Health Communications Specialist Name Role Phone Lalito England MD Primary Care Provider [phone] Reason for Visit * Reason Onset Date Comments Labs Needed for Appointment 05/24/2024 Encounter Details Date Type Department Care Team (Late st Contact Info) Description 05/24/2024 Telephone [facility] [address] [facility] [place] [address] Yola Oliver MA Labs Needed for Appointment Social History Tobacco Use Types Packs/Day Years Used Date Smoking Tobacco: Never Passive Smoke Exposure: Past Smokeless Tobacco: Never Alcohol Use Standard Drinks/Week Comments Yes 0 (1 standard drink = 0.6 oz pur e alcohol) occasional C Utilities Answer Date Recorded In the past 12 months has [employer], gas, oil, or water company threatened to [...] often do you attend chur ch or taoist services? Never 01/19/2024 Do you belong to any clubs o r organizations such as religious groups, unions, fraternal or athletic groups, or [...] place to sleep or slept in a [place] (including now)? No 07/16/2022 Housing Stability Vital Sign Answer Albaro e Recorded In the last 12 months, was t here a time when you were not able to pay the mortgage or rent on time? No 01/19/2024 In the past 12 months, how m any times have you moved where you were living? 0 01/19/2024 At any time in the past 12 m [facility], were you homeless or living in a [place] facility (including now)? No 01/19/2024 Personal Safety Answer Date Recorded Have you ever been in or are you currently in a harmful physical or emotional relationship or is someone making you feel afraid or unsafe? Denies 04/20/2024 Comments No Sex and Gender Information Value Date Recorded Sex Assigned at Not on file Legal Sex Female 11:52 PM TEXTILE ARTIST Gender Identity Not on file Sexual Orientation Not on file documented as of this encounter Miscellaneous Notes * Telephone Encounter - Yola Oliver MA - 05/24/2024 9:52 AM TEXTILE ARTIST Patient notified needs labs done prior to upcoming appointment. ILE ARTIST documented in this encounter Plan of Treatment Not on file documented as of this encounter Visit Diagnoses Not on filedocumented in this encounter Care Teams Health Communications Specialist Relationship Specialty Start Date End [place] [address] PCP - General 08/03/19 documented as of this encounter
--- OUTSIDE RECORDS SUMMARY | 2024-07-11 22:32 | XMS_ITS | Encounter Summary ---
Author Organization [facility] Healthcare Address [address] [facility] [place] [address] Care Team Providers Care Channel Layer Name Role Phone Lalito England MD Primary Care Provider [phone] Reason for Referral * MRI/CAT/PET Scan (Routine) - Closed Specialty Diagnoses / Procedures Referred By Contac t Referred To Contact Radiology Diagnoses Degenerative cervical spinal stenosis Procedures CT Lumbar Spine WO Contrast CT Lumbar Spine WO Contrast Anson Jeffries NP [address] [place] [address] Phone: tel: fax: [address] [address] Referral ID Status Reason Start Date Expiration Date Visits Re quested Visits Authorized [id number] Closed 04/26/2024 05/26/2025 1 1 U[facility]ANT IN ERGONOMICS AND SAFETY Reason for Visit * MRI/CAT/PET Scan (Routine) - Closed Specialty Diagnoses / Procedures Referred By Contac t Referred To Contact Radiology Diagnoses Degenerative cervical spinal stenosis Procedures CT Lumbar Spine WO Contrast CT Lumbar Spine WO Contrast Anson Jeffries NP [address] [place] [address] Phone: tel: fax: [address] [phone] Referral ID Status Reason Start Date Expiration Date Visits Re quested Visits Authorized [id number] Closed 04/26/2024 05/26/2025 1 1 Encounter Details Date Type Department Care Team (Latest Contact Info) Description 06/24/2024 2:35 PM CONSULTANT IN ERGONOMICS AND SAFETY - 06/24/2024 11:59 PM CONSULTANT IN ERGONOMICS AND SAFETY Hospital Encounter [facility] [address] [place] [address] Degenerative cervical spinal stenosis Discharge Disposition: Discharge to home or self care Social History Tobacco Use Types Packs/Day Years Used Date Smoking Tobacco: Never Passive Smoke Exposure: Past Smokeless Tobacco: Never Alcohol Use Standard Drinks/Week Comments Yes 0 (1 standard drink = 0.6 oz pur e alcohol) occasional [facility] Utilities Answer Date Recorded In [...] often do you attend chur ch or yazdanism services? Never 01/19/2024 Do you belong to any clubs o r organizations such as yazidi groups, unions, fraternal or athletic groups, or [...] any time in the past 12 m [facility], were you homeless or living in a [...] on file Legal Sex Female 11:52 PM CONSULTANT IN ERGONOMICS AND SAFETY Gender Identity Not on file Sexual Orientation Not on file documented as of this encounter Medications at Time of Discharge acetaminophen 500 mg capsule Take 2 capsules (1,000 mg total) by mouth every 6 (six) hours albuterol HFA (PROVENTIL HFA,VENTOLIN HFA,PROAIR HFA) 90 [...] (81 mg total) by mouth early childhood special educator before breakfast Do not restart until 2 weeks after surgery (12/07) 4 blood glucose diagnostic (Contour Next Test Strips) strip TEST BLOOD SUGAR 3 TIMES A DAY AND WILL MONTIOR RESPONSE. DX: E11.22. 200 strip 1 4 blood-glucose meter (CONTOUR NEXT USB METER) misc test as directed 1 each 0 4 blood-glucose sensor device Use as directed every 14 days to monitor blood sugar. Dx: Type 2 insulin requiring DM. 5 each 2 4 calcium carbonate-vitamin D3 1,500 mg (600 [...] TID and then 2 capsules at bedtime. HYDROcodone-acetami nophen (NORCO) 5-325 mg per tabletIndications:P ain Take 1 tablet by mouth every 6 (six) hours as needed for pain (Dx: DDD lumbar spine/spinal stenosis) 60 tablet 4 insulin aspart (NovoLOG) 100 unit/mL (3 mL) [...] Ultra-Fine Mini Pen Needle) 31 gauge x 16 needle 1 NEEDLE DIRECTED (4 PER DAY) [...] 0.1 % cream Apply topically legs 4 omeprazole (PriLOSEC) 20 mg capsule TAKE 1 CAPSUEL BY MOUTH TWICE DAILY FOR GERD 180 capsule 5 3 06/28/20 24 documented as of this encounter Discharge Disposition Disposition Code Departure Means Destination Discharge to home or self care documented in this encounter Plan of Treatment Not on file documented as of this encounter Procedures Procedure Name Priority Date/Time Associated Diagnosis Comments CT LUMBAR SPINE WO CONTRAST Schedule Routine, Read Routine (OP Routine) 06/24/2024 3:19 PM CONSULTANT IN ERGONOMICS AND SAFETY Degenerative cervical spinal stenosis documented in this encounter Results * CT Lumbar Spine WO Contrast (06/24/2024 3:19 PM CONSULTANT IN ERGONOMICS AND SAFETY) Anatomical Region Laterality Modality Spine N/A Computed Tomogra phy 07/02/2024 8:38 AM CONSULTANT IN ERGONOMICS AND SAFETY Narrative 07/02/2024 8:45 AM CONSULTANT IN ERGONOMICS AND SAFETY EXAM DESCRIPTION: ?? CT THORACIC SPINE WO [...] AM T: ??07/02/2024 8:45 AM Report ID: [id number] Reading Location: [id number] Procedure Note Bin Schulz MD - 07/02/2024 [...] Bin Schulz M.D. ALMA: ALMA Report ID: [id number] Reading Location: [place] [address] Anson Jeffries BUSINESS SERVICES OFFICER IMG CT PROCEDURES Final Result documented in this encounter Visit Diagnoses Diagnosis Degenerative cervical spinal stenosis Spinal stenosis in cervical region documented in this encounter Care Teams Channel Layer Relationship Specialty Start Date End Date Lalito England MD [address] [place] [address] PCP - General 08/03/19 documented as of this encounter
--- OUTSIDE RECORDS SUMMARY | 2024-07-11 22:32 | XMS_ITS | Encounter Summary ---
Author Organization [facility] Healthcare Address [address] [place] [address] Care Team Providers Care Gm Name Role Phone Lalito England MD Primary Care Provider [phone] Reason for Referral * MRI/CAT/PET Scan (Routine) - Closed Specialty Diagnoses / Procedures Referred By Contac t Referred To Contact Radiology Diagnoses Degenerative cervical spinal stenosis Procedures CT Thoracic Spine WO Contrast CT Thoracic Spine WO Contrast Anson Jeffries NP [address] [place] [address] Phone: tel: fax: [address] [phone] Referral ID Status Reason Start Date Expiration Date Visits Re quested Visits Authorized [id number] Closed 04/26/2024 05/26/[address] Reason for Visit * MRI/CAT/PET Scan (Routine) - Closed Specialty Diagnoses / Procedures Referred By Contac t Referred To Contact Radiology Diagnoses Degenerative cervical spinal stenosis Procedures CT Thoracic Spine WO Contrast CT Thoracic Spine WO Contrast Anson Jeffries NP [address] [place] [address] Phone: tel: fax: [address] [phone] Referral ID Status Reason Start Date Expiration Date Visits Re quested Visits Authorized [id number] Closed 04/26/2024 05/26/2025 1 1 Encounter Details Date Type Department Care Team (Latest Contact Info) Description 06/24/2024 2:35 PM [address] HAND - 06/24/2024 11:59 PM RAILROAD HAND Hospital Encounter [facility] [address] [place] [address] Degenerative cervical spinal stenosis Discharge Disposition: Discharge to home or self care Social History Tobacco Use Types Packs/Day Years Used Date Smoking Tobacco: Never Passive Smoke Exposure: Past Smokeless Tobacco: Never Alcohol Use Standard Drinks/Week Comments Yes 0 (1 standard drink = 0.6 oz pur e alcohol) occasional [facility] Utilities Answer Date Recorded In [...] often do you attend chur ch or hindu services? 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 CT THORACIC SPINE WO [...] AM T: ??07/02/2024 8:45 AM Report ID: [id number] Reading Location: ??[id number] Procedure Note Bin Schulz MD - 07/02/2024 [...] Bin Schulz M.D. ALMA: ALMA Report ID: [id number] Reading Location: [place] [address] Anson Jeffries INTERNAL SALES ENGINEER IMG CT PROCEDURES Final Result documented in this encounter Visit Diagnoses Diagnosis Degenerative cervical spinal stenosis Spinal stenosis in cervical region documented in this encounter Care Teams Gm Relationship Specialty Start Date End Date Lalito England MD [address] [place] [address] PCP - General 08/03/19 documented as of this encounter
--- OUTSIDE RECORDS SUMMARY | 2024-07-11 22:32 | XMS_ITS | Encounter Summary ---
Author Organization [facility] Healthcare Address [address] [place] [address] Care Team Providers Care Water Filter Cleaner Name Role Phone Lalito England MD Primary Care Provider [phone] Reason for Visit * Reason Onset Date Comments Medical Question/Miscellaneous 05/13/2024 Encounter Details Date Type Department Care Team (Late st Contact Info) Description 05/13/2024 Telephone [facility] [address] [facility] [place] [address] Lalito England MD [address] [place] [address] Medical Question/Miscellaneous Social History Tobacco Use Types Packs/Day Years Used Date Smoking Tobacco: Never Passive Smoke Exposure: Past Smokeless Tobacco: Never Alcohol Use Standard Drinks/Week Comments Yes 0 (1 standard drink = 0.6 oz pur e alcohol) occasional [facility] Utilities Answer Date Recorded In the past 12 months has [employer], gas, oil, or water [employer] threatened to shut off services in your [...] week 01/19/2024 How often do you attend [facility] or temple services? Never 01/19/2024 Do you belong to any clubs o r organizations such as methodist groups, unions, fraternal or athletic groups, or [...] place to sleep or slept in a snf (including now)? No 07/16/2022 Housing Stability Vital Sign Answer Albaro e Recorded In the last 12 months, was t here a time when you were not able to pay the mortgage or rent on time? No 01/19/2024 In the past 12 months, how m any times have you moved where you were living? 0 01/19/2024 At any time in the past 12 m onths, were you homeless or living in a snf (including now)? No 01/19/2024 Personal Safety Answer Date Recorded Have you ever been in or are you currently in a harmful physical or emotional relationship or is someone making you feel afraid or unsafe? 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 * Telephone Encounter - Aniyah Alexander - 05/13/2024 11:06 AM CDT Call Back Caller???s Concern: patient states she is coming in to sign a form from [facility] today close to after 12:30 pm. She said she got a call from the office saying she needed to come in to sign it. Does message need to be routed? Yes-FYI Only documented in this encounter Plan of Treatment Not on file documented as of this encounter Visit Diagnoses Not on filedocumented in this encounter Care Teams Water Filter Cleaner Relationship Specialty Start Date End Date Lalito England MD [address] [place] [address] PCP - General 08/03/19 documented as of this encounter
--- OUTSIDE RECORDS SUMMARY | 2024-07-11 22:32 | XMS_ITS | Encounter Summary ---
Author Organization [facility] Healthcare Address [address] [place] [place] [address] Care Team Providers Care Odd Shoe Examiner Name Role Phone Lalito England MD Primary Care Provider [phone] Reason for Referral * MRI/CAT/PET Scan (Routine) - Closed Specialty Diagnoses / Procedures Referred By Contac t Referred To Contact Radiology Diagnoses Acute right-sided low back pain with sciatica, sciatica laterality unspecified Procedures MRI Lumbar Spine WO Contrast Anson Jeffries NP [address] [place] [address] Phone: tel: fax: [address] [phone] Referral ID Status Reason Start Date Expiration Date Visits Re quested Visits Authorized [id number] Closed 05/17/2024 08/15/2024 1 1 ARE ADVISER Reason for Visit * MRI/CAT/PET Scan (Routine) - Closed Specialty Diagnoses / Procedures Referred By Contac t Referred To Contact Radiology Diagnoses Acute right-sided low back pain with sciatica, sciatica laterality unspecified Procedures MRI Lumbar Spine WO Contrast Anson Jeffries NP [address] [place] [address] Phone: tel: fax: [address] [phone] Referral ID Status Reason Start Date Expiration Date Visits Re quested Visits Authorized [id number] Closed 05/17/2024 08/15/2024 1 1 Encounter Details Date Type Department Care Team (Latest Contact Info) Description 06/21/2024 1:52 PM WELFARE ADVISER - 06/21/2024 11:59 PM WELFARE ADVISER Hospital Encounter [facility] [address] [place] [address] Acute right-sided low back pain with sciatica, sciatica laterality unspecified Discharge Disposition: Discharge to home or self care Social History Tobacco Use Types Packs/Day Years Used Date Smoking Tobacco: Never Passive Smoke Exposure: Past Smokeless Tobacco: Never Alcohol Use Standard Drinks/Week Comments Yes 0 (1 standard drink = 0.6 oz pur e alcohol) occasional [facility] Utilities Answer Date Recorded In the [...] often do you attend chur ch or advent services? Never 01/19/2024 Do you belong to any clubs o r organizations such as baptist groups, unions, fraternal or athletic groups, or [...] place to sleep or slept in a nursing home (including now)? No 07/16/2022 Housing Stability Vital Sign Answer Albaro e Recorded In the last 12 months, was t here a time when you were not able to pay the mortgage or rent on time? No 01/19/2024 In the past 12 months, how m any times have you moved where you were living? 0 01/19/2024 At any time in the past 12 m [facility], were you homeless or living in a nursing home (including now)? No 01/19/2024 Personal Safety Answer Date Recorded Have you ever been in or are you currently in a harmful physical or emotional relationship or is someone making you feel afraid or unsafe? Denies 04/20/2024 Comments No Sex and Gender Information Value Date Recorded Sex Assigned at Not on file Legal Sex Female 11:52 PM WELFARE ADVISER Gender Identity Not on file Sexual Orientation Not on file documented as of this encounter Medications at Time of Discharge acetaminophen 500 mg capsule Take 2 capsules (1,000 mg total) by mouth every 6 (six) hours 4 albuterol HFA (PROVENTIL HFA,VENTOLIN HFA,PROAIR HFA) [...] 1 tablet (81 mg total) by mouth commodities requirements analyst before breakfast Do not restart until 2 [...] Procedure Name Priority Date/Time Associated Diagnosis Comments MRI LUMBAR SPINE WO CONTRAST Schedule Routine, Read Routine (OP Routine) 06/21/2024 3:07 PM WELFARE ADVISER Acute right-sided low back pain with sciatica, sciatica laterality unspecified documented in this encounter Results * MRI Lumbar Spine WO Contrast (06/21/2024 3:07 PM WELFARE ADVISER) Anatomical Region Laterality Modality Spine N/A Magnetic Resonan ce 06/22/2024 11:5 2 AM WELFARE ADVISER Narrative 06/22/2024 12:14 PM WELFARE ADVISER EXAM DESCRIPTION: ?? MRI THORACIC SPINE WO [...] PM T: ??06/22/2024 12:14 PM Report ID: [id number] Reading Location: ??[id number] Procedure Note Bin Schulz MD - 06/22/2024 [...] noting disc contact with the descending right [id number] root. No spinal canal stenosis demonstrated on [...] Bin Schulz M.D. ALMA: ALMA Report ID: [id number] Reading Location: [place] [address] Anson Jeffries SUPERVISOR CORRESPONDENCE SECTION IMG MRI PROCEDURES Final Result documented in this encounter Visit Diagnoses Diagnosis Acute right-sided low back pain with sciatica, sciatica laterality unspecified documented in this encounter Care Teams Odd Shoe Examiner Relationship Specialty Start Date End Date Lalito England MD [address] [place] [address] PCP - General 08/03/19 documented as of this encounter
--- OUTSIDE RECORDS SUMMARY | 2024-07-11 22:32 | XMS_ITS | Encounter Summary ---
Author Organization [facility] Address [address] [place] [address] Phone Care Team Providers Care Dimethylaniline Sulfator Operator Name Role Phone Lalito England MD Primary Care Provider [phone] Reason for Referral * Diagnostic Imaging (Routine) - Pending Review Specialty Diagnoses / Procedures Referred By Contac t Referred To Contact Diagnoses Melanoma of right upper arm (HCC) Procedures US Axillary Right Non-Breast Yaniv Callaway MD [address] [place] [address] Phone: tel: fax: [address] [phone] Referral ID Status Reason Start Date Expiration Date V isits Requested Visits Authorized [id number] Pending Review 05/10/2024 06/09/2025 1 1 Reason for Visit * Reason Comments Follow-up Melanoma * Consultation (Routine) - Authorized Specialty Diagnoses / Procedures Referred By Contac t Referred To Contact Oncology Diagnoses Melanoma of right upper arm (HCC) Lalito England MD [address] [place] [address] Phone: tel: fax: Yaniv Callaway MD [address] [place] [address] Phone: tel: fax: Referral ID Status Reason Start Date Expiration Date Visits Requested Visits Authorized [id number] Authorized Specialty Services Required 4 07/13/2024 12 12 Encounter Details Date Type Department Care Team (Late st Contact Info) Description 05/10/2024 11:45 AM CDT Office Visit [facility] Oncology [address] [place] [address] Medical Office [address] [place] [id number] Yaniv Callaway MD [address] [place] [address] Melanoma of right upper arm (HCC) Social History Tobacco Use Types Packs/Day Years Used Date Smoking Tobacco: Never Passive Smoke Exposure: Past Smokeless Tobacco: Never Alcohol Use Standard Drinks/Week Comments Yes 0 (1 standard drink = 0.6 oz pur e alcohol) occasional C Utilities Answer Date Recorded In the past 12 months has tab ticketbroker, gas, oil, or water [employer] threatened to shut off services in your [...] How often do you attend chur or baptism services? 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 Gender Identity Not on file Sexual Orientation Not on file documented as of this encounter Last Filed Vital Signs Vital Sign Reading Time Taken Comments Blood Pressure 168/52 05/10/2024 11:39 AM CDT Pulse 87 05/10/2024 11:39 AM CDT Temperature 36.3 ??C (97.3 ??F) 05/10/2024 11:39 AM C DT Respiratory Rate 20 05/10/2024 11:39 AM CDT Oxygen Saturation 100% 05/10/2024 11:39 AM CDT Inhaled Oxygen Concentration - - Weight 98.2 kg (216 lb 9.6 oz) 05/10/2024 11:39 AM CDT Height 167.6 cm (5' 6 ) 05/10/2024 11:39 AM CDT Body Mass Index 34.96 05/10/2024 11:39 AM CDT documented in this encounter Progress Notes * Yaniv Callaway MD - 05/10/2024 11:45 AM CDT HEMATOLOGY AND MEDICAL ONCOLOGY FOLLOW-UP VISIT Patient Name: Criss Ly Date of Visit: 05/10/2024 : 1950 Age: 74 y.o. Presenting Complaint: (copied from initial note) Criss Ly is seen in our office for evaluation of melanoma. History of Present Illness: Ms. Ly was seen for the 1st time in our office in April of 2024. She was a woman with a varietyof generally well compensated medical problems including diabetes mellitus, hypertension, hypercholesterolemia, and arthritis. In September of 2023 she noted a dark lesion on the lateral aspect of her right shoulder superimposed on the deltoid. She brought this to the attention of her inventory specialist whoperformed a biopsy which was apparently consistent with melanoma. The patient recalls it measuring 0.5 mm but I did not have original pathology data at the time of this dictation. She was referred toDr. Pickett for definitive excision, and on February 10 2024 wide excision was performed notable for residual melanoma with associated melanoma in Situ with biopsy changes. There was evidence of ulceration (although I am unsure as to whether or not this was related to the prior biopsy. The Jett levelwas 4 in Breslow thickness 1.5 mm. The inked margins were free of involvement. On April 13, she reported for lymphoscintigraphy and possible sentinel node biopsy. Unfortunately none of the tracer traveled to the axilla and therefore the surgery was aborted. She otherwise feels well. She has no cough or shortness of breath she has headache and no focal areas of weakness. Interval History: She returns today for follow-up. Since last seen, there have been no major changes. She does have avariety of medical and surgical issues including a rather painful back for which she is about to undergo a series of studies to assess her surgical candidacy. A PET scan was performed prior to today's visit which shows no evidence of persistent cancer other than for some FDG activity at the site surgery which presumably reflects inflammation and wound healing given the negative margins. There wasno evidence of lymphadenopathy or FDG activity in the right axilla. She is due for a right axillaryultrasound in 1 month. Medications: Current Outpatient Medications: acetaminophen, 1,000 mg, oral, Q6H GOPAL albuterol HFA, 2 puff, inhalation, Q6H PRN apixaban, 5 mg, oral, BID aspirin, 81 mg, oral, Daily - 0600 Contour Next Test Strips, TEST BLOOD SUGAR 3 TIMES A DAY AND WILL MONTIOR RESPONSE. DX: E11.22. Contour Next USB Meter, test as directed calcium carbonate-vitamin D3, Take by mouth clobetasoL, PLEASE SEE ATTACHED FOR DETAILED DIRECTIONS cloNIDine, TAKE 1/2 TABLET BY MOUTH TWICE DAILY FOR HYPERTENSION docusate sodium, 100 mg, oral, TID PRN finasteride, 5 mg, oral, Daily fluticasone propionate, 2 spray, each nostril, Daily fluticasone propionate, INHALE 2 PUFFS EVERY MORNING furosemide, 40 mg, oral, Daily gabapentin, 100 mg, oral, QID HYDROcodone-acetaminophen, 1 tablet, oral, Q6H PRN insulin aspart, 15 Units, subcutaneous, TID AC Microlet Lancet, test by fingerstick route 3 times daily losartan, 12.5 mg, oral, Daily montelukast, TAKE 1 TABLET BY MOUTH AT BEDTIME FOR ALLERGIES naloxone, 1 spray, nasal, PRN Nyamyc, Apply topically field operations coordinator before breakfast omeprazole, TAKE 1 CAPSUEL BY MOUTH TWICE DAILY FOR GERD ondansetron ODT, 8 mg, oral, Q8H PRN pen needle, diabetic, 1 NEEDLE DIRECTED (4 PER DAY) polyethylene glycol, 17 g, oral, PRN Ozempic, INJECT 2 MG SUBCUTANEOUSLY ONE TIME PER WEEK SEMGLEE-yfgn, 20 Units, subcutaneous, Nightly senna-docusate, 2 tablet, oral, BID simvastatin, 40 mg, oral, Nightly triamcinolone, Apply topically legs Allergies: No Known Allergies Review of Systems: The Review of Systems is documented in full in the internal medical record. All systems are negative other than for those noted above. 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 2008.; Comments: [facility] 07/25/2015 - HX OTHER MEDICAL Breast reduction 2009.; Comments: [facility] 07/25/2015 - HX OTHER MEDICAL left hip and leg surgery HX OTHER MEDICAL conversion of previous hip arthroplasty left hip; Comments: [facility] TCU unit 02/06 - 02/17/16 for rehabilitation. [...] chronic kidney disease (HCC) Past Surgical History: Past Surgical History: Procedure Laterality Date BACK [...] HIP ARTHROPLASTY Left 02/05/2016 Dr. David Sykes, [facility] - conversion of previous hip arthroplasty left hip: Conversion of Arthroplasty left hip TOTAL KNEE ARTHROPLASTY Left 09/27/2005 Left TKA - Dr. Cole Beckham TOTAL KNEE ARTHROPLASTY Right 08/27/2001 Right TKA - Dr. Kuldeep Basurto Social History: Social History Tobacco Use Smoking status: Never Passive exposure: Past Smokeless tobacco: Never Vaping Use Vaping status: Never Used Substance and Sexual Activity Alcohol use: Yes Comment: occasional Drug use: Never Sexual activity: Defer Family History: Family History Problem Relation Age of Onset Diabetes Mother Diabetes mellitus; Hypertension Mother Hypertension; Heart disease Father Heart disease; Heart failure Father CHF; Cause of : CHF Colon cancer Father Diabetes Brother Diabetes mellitus; Cancer Brother Lymphoma Brother Cancer -lymphoma; Stroke Brother Hypertension Brother Breast cancer Neg Hx Ovarian cancer Neg Hx Thyroid cancer Neg Hx Physical Examination: General Appearance: Healthy appearing patient in no acute distress. Uses a walker. Vital signs: BP 168/52 (BP Location: Right arm) Pulse 87 Temp 36.3 ??C (97.3 ??F) (Skin) Resp20 Ht 167.6 cm (5' 6 ) Wt 98.2 kg (216 lb 9.6 oz) SpO2 100% BMI 34.96 kg/m?? Performance Status: ECOG Level 2 Pain Scale: 5/10 (chronic back pain.) HEENT: No oral or pharyngeal masses. Neck: Supple. There is no thyromegaly. Lymph nodes: There is no cervical, supraclavicular, axillary or inguinal adenopathy. Breasts: Not examined Lungs: The lungs are clear to auscultation and percussion. There is no egophony. There is no chest wall tenderness and no use of accessory respiratory musculature. Heart: There is no jugular venous distention. The rate is normal and rhythm regular. The S1 and S2 are normal and there are no murmurs or rubs. Abdomen: Soft, non-tender, bowel sounds present and normal, no appreciated hepatosplenomegaly. No palpable masses. Skin: No rash, petechiae or ecchymoses. No evidence of malignancy. Extremities: No cyanosis, clubbing or edema. Neurologic: Comprehension and speech normal. Cranial nerves intact. No focality in motor, sensory or reflex exams. Labs/Imaging: No visits with results within 1 Day(s) from this visit. Latest known visit with results is: Lab on 04/22/2024 Component Date Value Ref Range Status WBC 04/22/2024 8.7 3.8 - 9.9 K/cumm Final Testing performed by: [facility] [address], Medical Office [facility] [address], [place] [address] Hgb 04/22/2024 10.1 (L) 11.9 - 15.5 g/dL Final Testing performed by: [facility] [address], Medical Office [facility] [address], [place] [address] Hct 04/22/2024 31.3 (L) 35.6 - 45.5 % Final Testing performed by: [facility] [address], Medical Office [facility] [address], [place] [address] Plt 04/22/2024 184 150 - 400 K/cumm Final Testing performed by: [facility] [address], Medical Office [facility] [address], [place] [address] MPV 04/22/2024 9.5 9.1 - 12.3 fL Final Testing performed by: [facility] [address], Medical Office [facility] [address], [place] [address] RBC 04/22/2024 3.53 (L) 3.90 - 5.20 M/cumm Final Testing performed by: [facility] [address], Medical Office [facility] [address], [place] [address] MCV 04/22/2024 88.7 81.3 - 96.4 fL Final Testing performed by: [facility] [address], Medical Office [facility] [address], [place] [address] MCH 04/22/2024 28.6 27.1 - 33.3 pg Final Testing performed by: [facility] [address], Medical Office [address], [place] [address] MCHC 04/22/2024 32.3 32.3 - 35.7 g/dL Final Testing performed by: [facility] [address], Medical Office [address], [place] [address] RDW CV 04/22/2024 13.4 11.1 - 14.9 % Final Testing performed by: [facility] [address], Medical Office [address], [place] [address] RDW SD 04/22/2024 43.6 35.7 - 48.1 fL Final Testing performed by: [facility] [address], Medical Office [address], [place] [address] NRBC abs 04/22/2024 Not Measured 0.00 - 0.01 K/cumm Final Testing performed by: [facility] [address], Medical Office [facility] [address], [place] [address] Sodium 04/22/2024 141 135 - 145 mmol/L Final Testing performed by: [place], [address] Potassium, pl 04/22/2024 3.6 3.3 - 4.9 mmol/L Final Testing performed by: [place], [address] Chloride 04/22/2024 104 97 - 110 mmol/L Final Testing performed by: [place], [address] CO2 04/22/2024 26 22 - 32 mmol/L Final Testing performed by: [place], [address] Anion gap 04/22/2024 11 2 - 15 mmol/L Final Testing performed by: [place], [address] BUN 04/22/2024 16 6 - 25 mg/dL Final Testing performed by: [place], [address] Creatinine 04/22/2024 1.30 (H) 0.60 - 1.10 mg/dL Final Testing performed by: [place], [address] Glucose 04/22/2024 98 70 - 199 mg/dL Final Comment: Interpretive Data Fasting glucose >/= 126 mg/dl is diagnostic for diabetes. Fasting is defined as no caloric intake [...] was last revised 2022. Testing performed by: [place], [address] Calcium 04/22/2024 9.2 8.5 - 10.3 mg/dL Final Testing performed by: [place], [address] Bilirubin, total 04/22/2024 0.3 0.1 - 1.2 mg/dL Final Testing performed by: [place], [address] Protein, pl 04/22/2024 6.8 6.5 - 8.5 g/dL Final Testing performed by: [place], [address] Albumin 04/22/2024 3.7 3.5 - 5.0 g/dL Final Testing performed by: [place], [address] Alk phos 04/22/2024 70 40 - 130 Units/L Final Testing performed by: [place], [address] ALT 04/22/2024 9 7 - 45 Units/L Final Testing performed by: [place], [address] AST 04/22/2024 13 10 - 45 Units/L Final Testing performed by: [place], [address] Neutrophil abs 04/22/2024 6.1 1.5 - 6.5 K/cumm Final Testing performed by: [facility] [place], [address], Medical Office [address], [place] [address] Imm gran abs 04/22/2024 0.0 0.0 - 0.1 K/cumm Final Testing performed by: [facility] [address], Medical Office [facility] [address], [place] [address] Lymphocyte abs 04/22/2024 1.8 0.8 - 3.3 K/cumm Final Testing performed by: [facility] [address], Medical Office [facility] [address], [place] [address] Monocyte abs 04/22/2024 0.6 0.2 - 0.8 K/cumm Final Testing performed by: [facility] [address], Medical Office [facility] [address], [place] [address] Eosinophil abs 04/22/2024 0.2 0.0 - 0.5 K/cumm Final Testing performed by: [facility] [address], Medical Office [facility] [address], [place] [address] Basophil abs 04/22/2024 0.1 0.0 - 0.1 K/cumm Final Testing performed by: [facility] [address], Medical Office [facility] [address], [place] [address] Neutrophil pct 04/22/2024 70.2 % Final Comment: Interpretive Data Percent cell count reference ranges are not reported, since discordance with absolute values may lead to misinterpretation of CBC data. Current Interpretive Data was last revised on 2022. Testing performed by: [facility] [address], Medical Office [facility] [address], [place] [address] Imm gran pct 04/22/2024 0.1 % Final Comment: Interpretive Data Percent cell count reference ranges are not reported, since discordance with absolute values may lead to misinterpretation of CBC data. Current Interpretive Data was last revised on 2022. Testing performed by: [facility] [address], Medical Office [facility] [address], [place] [address] Lymphocyte pct 04/22/2024 20.1 % Final Comment: Interpretive Data Percent cell count reference ranges are not reported, since discordance with absolute values may lead to misinterpretation of CBC data. Current Interpretive Data was last revised on 2022. Testing performed by: [facility] [address], Medical Office [facility] [address], [place] [address] Monocyte pct 04/22/2024 6.6 % Final Comment: Interpretive Data Percent cell count reference ranges are not reported, since discordance with absolute values may lead to misinterpretation of CBC data. Current Interpretive Data was last revised on 2022. Testing performed by: [facility] [address], Medical Office [address], [place] [address] Eosinophil pct 04/22/2024 2.3 % Final Comment: Interpretive Data Percent cell count reference ranges are not reported, since discordance with absolute values may lead to misinterpretation of CBC data. Current Interpretive Data was last revised on 2022. Testing performed by: [facility] [address], Medical Office [facility] [address], [place] [address] Basophil pct 04/22/2024 0.7 % Final Comment: Interpretive Data Percent cell count reference ranges are not reported, since discordance with absolute values may lead to misinterpretation of CBC data. Current Interpretive Data was last revised on 2022. Testing performed by: [facility] [address], Medical Office [facility] [address], [place] [address] eGFR 04/22/2024 43 (L) >=60 mL/min/1.73 m2 Final Comment: Interpretive Data Reference Interval Normal >/= 90 mL/min/1.73m2 Mildly decreased* 60 - 89 mL/min/1.73m2 Mildly to moderately decreased 45 - 59 mL/min/1.73m2 Moderately to severely decreased 30 - 44 mL/min/1.73m2 Severely decreased 15 - 29 mL/min/1.73m2 Kidney Failure < 15 mL/min/1.73m2 *Relative to young adult level Estimated glomerular [...] was last reviewed 2021. Testing performed by: [facility], [facility], [place], [address] Above results reviewed with patient. ASSESSMENT: This patient presents with what appears to be a clinical T2b melanoma of the shoulder with clinically negative lymph nodes. Unfortunately lymphoscintigraphy was technically unable to identify any lymph nodes in the axilla. Had there been a positive lymph node, she would have been a candidate for adjuvant therapy presumably immunotherapy given her other medical illnesses. PET scanning shows no lymphadenopathy or FDG avidity. Although this certainly does not rule out microscopic disease, it does make it less likely to have overt disease in the right axilla. PLAN: Given the uncertainty as to whether or not the patient should receive adjuvant therapy, I am relying on the negative PET scan as well as presence of other significant medical comorbidities to help make that decision. In doing so, I have ultimately suggested that we not proceed with adjuvant immunotherapy. She will have her axillary ultrasound performed next month. I will see her again 3 months' time at which point in the right axillary lymph node ultrasound analysis will be performed. RESUSCITATION DIRECTIVES/HOSPICE CARE; Full Support Yaniv Callaway MD, FACP, FASCO fire control mechanic [facility] Division of Oncology [facility] Portions of this note may be dictated using voice recognition software. Variances in spelling/vocabulary are possible and unintentional. Not all errors are caught/corrected. Please notify the author if any discrepancies or grammatical oversights are noted or if the meaning of any statement is not cl ear. documented in this encounter Plan of Treatment Scheduled Orders Name Type Priority Associated Diagnoses Order Schedule CBC with auto differential Lab Routine Melanoma of right upper arm (HCC) Expected: 09/06/2024, Expires: 11/08/2025 Comprehensive metabolic panel Lab Routine Melanoma of right upper arm (HCC) Expected: 09/06/2024, Expires: 11/08/2025 US Axillary Right Non-Breast Imaging Schedule Routine, Read Routine (OP Routine) Melanoma of right upper arm (HCC) Expected: 08/30/2024, Expires: 05/10/2025 documented as of this encounter Visit Diagnoses Diagnosis Melanoma of right upper arm (HCC) documented in this encounter Historical Medications * This list may reflect changes made after this encounter. clobetasoL (TEMOVATE) 0.05 % cream PLEASE SEE ATTACHED FOR DETAILED DIRECTIONS 04/30/2024 added in this encounter Orders Appointment Requests Count Last Ordered Date Fi rst Ordered Date ONCBCN CLINIC APPOINTMENT REQUEST 2 024 ONCBCN LAB APPOINTMENT 1 05/10/2024 documented in this encounter Care Teams Dimethylaniline Sulfator Operator Relationship Specialty Start Date End Date Lalito England MD [address] [place] [address] PCP - General 08/03/19 documented as of this encounter
--- OUTSIDE RECORDS SUMMARY | 2024-07-11 22:32 | XMS_ITS | Encounter Summary ---
Author Organization [facility] Address [address] [place] [address] Care Team Providers Care Plant Propagator Name Role Phone Lalito England MD Primary Care Provider [phone] Reason for Visit * Reason Onset Date Comments Chart Review 05/03/2024 Med adh Encounter Details Date Type Department Care Team (Late st Contact Info) Description 05/03/2024 Telephone [facility] [address] [facility] [place] [address] Ольга Bacon MA [address] [place] [address] [address] Chart Review (Med adh) Social History Tobacco Use Types Packs/Day Years Used Date Smoking Tobacco: Never Passive Smoke Exposure: Past Smokeless Tobacco: Never Alcohol Use Standard Drinks/Week Comments Yes 0 (1 standard drink = 0.6 oz pur e alcohol) occasional C Utilities Answer Date Recorded In the past 12 months has [employer], gas, oil, or water [employer] threatened to shut off services in your [...] week 01/19/2024 How often do you attend [facility] or spiritism services? Never 01/19/2024 Do you belong to [...] place to sleep or slept in a assisted (including now)? No 07/16/2022 Housing Stability Vital [...] were you homeless or living in a assisted (including now)? No 01/19/2024 Personal Safety Answer Date Recorded Have you ever been in or are you currently in a harmful physical or emotional relationship or is someone making you feel afraid or unsafe? 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 According to this report, Simvastatin was last refilled on 02/01 for a 90 day supply. Goal is to have enough medicine so that 80% or more of the days are covered each year. Flled 05/01 The patient was not contacted during this encounter. documented in this encounter Plan of Treatment Not on file documented as of this encounter Visit Diagnoses Not on filedocumented in this encounter Care Teams Plant Propagator Relationship Specialty Start Date End Date Lalito England MD [address] [place] [address] PCP - General 08/03/19 documented as of this encounter
--- OUTSIDE RECORDS SUMMARY | 2024-07-11 22:32 | XMS_ITS | Encounter Summary ---
Author Organization [facility] Healthcare Address [address] [place] [address] Care Team Providers Care Rn Occupational Name Role Phone Lalito England MD Primary Care Provider +1 [phone] Reason for Visit * Reason Comments [facility] Encounter Details Date Type Department Care Team (Late st Contact Info) Description 06/21/2024 Telephone [facility] Accountable Care Organization [address] [place] [id number] Cielo Stewart MA [address] [place] [address] [phone] [facility] Social History Tobacco Use Types Packs/Day Years Used Date Smoking Tobacco: Never Passive Smoke Exposure: Past Smokeless Tobacco: Never Alcohol Use Standard Drinks/Week Comments Yes 0 (1 standard drink = 0.6 oz pur e alcohol) occasional [facility] Utilities Answer Date Recorded In the past 12 months has [employer], gas, oil, or water [employer] threatened to shut off services in your [...] How often do you attend chur or christianity services? Never 01/19/2024 Do you belong to any clubs o r organizations such as mosque groups, unions, fraternal or athletic groups, or [...] place to sleep or slept in a fdc (including now)? No 07/16/2022 Housing Stability Vital [...] were you homeless or living in a fdc (including now)? No 01/19/2024 Personal Safety Answer Date Recorded Have you ever been in or are you currently in a harmful physical or emotional relationship or is someone making you feel afraid or unsafe? Denies 04/20/2024 Comments No Sex and Gender Information Value Date Recorded Sex Assigned at Not on file Legal Sex Female 11:52 PM FINAL CIGAR AND BOX EXAMINER Gender Identity Not on file Sexual Orientation Not on file documented as of this encounter Miscellaneous Notes * Telephone Encounter - Cielo Stewart MA - 06/21/2024 3:18 PM FINAL CIGAR AND BOX EXAMINER Patient was seen by an in-home [facility] provider for an in home visit on 06/14/24. Visit has been uploaded to patient's chart (under Media). Cielo MALDONADO, Care Slurry Control Tender [facility] Accountable Care Organization [phone] L CIGAR AND BOX EXAMINER documented in this encounter Plan of Treatment Not on file documented as of this encounter Visit Diagnoses Not on filedocumented in this encounter Care Teams Rn Occupational Relationship Specialty Start Date End [place] [address] PCP - General 08/03/19 documented as of this encounter
--- OUTSIDE RECORDS SUMMARY | 2024-07-11 22:32 | XMS_ITS | Encounter Summary ---
Author Organization [facility] Address [address] [place] [address] Phone Care Team Providers Care Wholesale Loan Processor Name Role Phone Lalito England MD Primary Care Provider [phone] [phone] Encounter Details Date Type Department Care Team (Late st Contact Info) Description 05/07/2024 Telephone [facility] Oncology [address] [place] [address] [address] [place] [phone] Osiris Rodriguez, OSVALDO Social History Tobacco Use Types Packs/Day Years Used Date Smoking Tobacco: Never Passive Smoke Exposure: Past Smokeless Tobacco: Never Alcohol Use Standard Drinks/Week Comments Yes 0 (1 standard drink = 0.6 oz pur e alcohol) occasional C Utilities Answer Date Recorded In the past 12 months has [employer], gas, oil, or water company threatened to [...] often do you attend chur ch or jewish services? 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
--- OUTSIDE RECORDS SUMMARY | 2024-07-11 22:32 | XMS_ITS | Encounter Summary ---
Author Organization [facility] Healthcare Address [address] [place] [address] Care Team Providers Care Orchestra Conductor Name Role Phone Lalito England MD Primary Care Provider [phone] [phone] Encounter Details Date Type Department Care Team (Late st Contact Info) Description 05/19/2024 Telephone [facility] [address] [place] [address] Lalito England MD [address] [place] [address] Social History Tobacco Use Types Packs/Day Years Used Date Smoking Tobacco: Never Passive Smoke Exposure: Past Smokeless Tobacco: Never Alcohol Use Standard Drinks/Week Comments Yes 0 (1 standard drink = 0.6 oz pur e alcohol) occasional [facility] Utilities Answer Date Recorded In the past 12 months has [employer], gas, oil, or water [employer] threatened to shut off services in your [...] How often do you attend chur or protestant services? Never 01/19/2024 Do you belong to any clubs o r organizations such as amish groups, unions, fraternal or athletic groups, or [...] place to sleep or slept in a alf (including now)? No 07/16/2022 Housing Stability Vital [...] time in the past 12 m [facility], were you homeless or living in a alf (including now)? No 01/19/2024 Personal Safety Answer Date Recorded Have you ever been in or are you currently in a harmful physical or emotional relationship or is someone making you feel afraid or unsafe? Denies 04/20/2024 Comments No Sex and Gender Information Value Date Recorded Sex Assigned at Not on file Legal Sex Female 11:52 PM ENTERTAINMENT & MEDIA CORRESPONDENT Gender Identity Not on file Sexual Orientation Not on file documented as of this encounter Miscellaneous Notes * Telephone Encounter - Marylou Tovar MA - 05/19/2024 8:13 AM CST Called pt to ask her to get a print out from her pharmacy for her out of pocket expenses for the year for her prescriptions, so I can send to the assistance program for eliquis Thanks RTAINMENT & MEDIA CORRESPONDENT documented in this encounter Plan of Treatment Not on file documented as of this encounter Visit Diagnoses Not on filedocumented in this encounter Care Teams Orchestra Conductor Relationship Specialty Start Date End Date Lalito England MD [address] [place] [address] PCP - General 08/03/19 documented as of this encounter
--- OUTSIDE RECORDS SUMMARY | 2024-07-11 22:32 | XMS_ITS | Encounter Summary ---
Author Organization [facility] Address [address] [place] [address] Phone Care Team Providers Care Sales Estimator Name Role Phone Lalito England MD Primary Care Provider [phone] [phone] Encounter Details Date Type Department Care Team (Late st Contact Info) Description 05/03/2024 Telephone [facility] Oncology [address] [place] [address] [address] [place] [phone] Audrey Mcqueen, OSVALDO Social History Tobacco Use Types Packs/Day Years Used Date Smoking Tobacco: Never Passive Smoke Exposure: Past Smokeless Tobacco: Never Alcohol Use Standard Drinks/Week Comments Yes 0 (1 standard drink = 0.6 oz pur e alcohol) occasional C Utilities Answer Date Recorded In the past 12 months has [employer], gas, oil, or water company threatened to [...] often do you attend chur ch or religion services? Never 01/19/2024 Do you belong to any clubs o r organizations such as alevism groups, unions, fraternal or athletic groups, or [...] place to sleep or slept in a group home (including now)? No 07/16/2022 Housing Stability [...] were you homeless or living in a group home (including now)? No 01/19/2024 Personal Safety Answer Date Recorded Have you ever been in or are you currently in a harmful physical or emotional relationship or is someone making you feel afraid or unsafe? Denies 04/20/2024 Comments No Sex and Gender Information Value Date Recorded Sex Assigned at Not on file Legal Sex Female 11:52 PM TECHNICAL EDITOR Gender Identity Not on file Sexual Orientation Not on file documented as of this encounter Miscellaneous Notes * Telephone Encounter - Phyllis Thomson RN - 05/03/2024 12:48 PM CDT Called patient and told her Dr. Callaway is out of town, and will not be back in the office until Friday. Will show mi the results then./res documented in this encounter Plan of Treatment Not on file documented as of this encounter Visit Diagnoses Not on filedocumented in this encounter Care Teams Sales Estimator Relationship Specialty Start Date End Date Lalito England MD [address] [place] [address] PCP - General 08/03/19 documented as of this encounter
--- OUTSIDE RECORDS SUMMARY | 2024-07-11 22:32 | XMS_ITS | Encounter Summary ---
Author Organization [facility] Healthcare Address [address] [facility], [place] [address] Care Team Providers Care Web Press Operator Name Role Phone Lalito England MD Primary Care Provider [phone] [phone] Reason for Referral * Diagnostic Imaging (Routine) - Closed Specialty Diagnoses / Procedures Referred By Contac t Referred To Contact Diagnoses Other osteoporosis, unspecified pathological fracture presence Procedures DEXA Axial Skeleton Bone Density Multi Site DEXA Axial Skeleton Bone Density Multi Site Anson Jeffries NP [address] [place] [address] Phone: tel: fax: [address] [address] Referral ID Status Reason Start Date Expiration Date Visits Re quested Visits Authorized [id number] Closed 04/26/2024 05/26/2025 1 1 P SAWYER Reason for Visit * Diagnostic Imaging (Routine) - Closed Specialty Diagnoses / Procedures Referred By Contac t Referred To Contact Diagnoses Other osteoporosis, unspecified pathological fracture presence Procedures DEXA Axial Skeleton Bone Density Multi Site DEXA Axial Skeleton Bone Density Multi Site Anson Jeffries NP [address] [place] [address] Phone: tel: fax: [address] [address] Referral ID Status Reason Start Date Expiration Date Visits Re quested Visits Authorized [id number] Closed 04/26/2024 05/26/2025 1 1 Encounter Details Date Type Department Care Team (Latest Contact Info) Description 06/24/2024 2:35 PM SCRAP SAWYER - 06/24/2024 11:59 PM SCRAP SAWYER Hospital Encounter [facility] [address] [place] [address] Other osteoporosis, unspecified pathological fracture presence Discharge Disposition: Discharge to home or self care Social History Tobacco Use Types Packs/Day Years Used Date Smoking Tobacco: Never Passive Smoke Exposure: Past Smokeless Tobacco: Never Alcohol Use Standard Drinks/Week Comments Yes 0 (1 standard drink = 0.6 oz pur e alcohol) occasional C Utilities Answer Date Recorded In the past 12 months has [employer], gas, oil, or water company threatened [...] any clubs o r organizations such as sabianism groups, unions, fraternal or athletic groups, or [...] any time in the past 12 m [facility], were you homeless or living [...] on file Legal Sex Female 11:52 PM SCRAP SAWYER Gender Identity Not on file Sexual Orientation [...] 1 tablet (81 mg total) by mouth teacher early childhood development before breakfast Do not restart until 2 [...] Procedure Name Priority Date/Time Associated Diagnosis Comments DEXA AXIAL SKELETON BONE DENSITY 1 OR MORE SITES Schedule Routine, Read Routine (OP Routine) 06/24/2024 2:55 PM SCRAP SAWYER Other osteoporosis, unspecified pathological fracture presence documented in this encounter Results * DEXA Axial Skeleton Bone Density Multi Site (06/24/2024 2:55 PM SCRAP SAWYER) Anatomical Region Laterality Modality Body N/A Other 06/24/2024 10:5 4 PM SCRAP SAWYER Narrative 06/24/2024 10:55 PM SCRAP SAWYER EXAM DESCRIPTION: DEXA AXIAL SKELETON BONE DENSITY 1 OR MORE SITES REASON FOR STUDY: 74 y/o ?? year old ??F ??with given history of: ??osteoporosis ?? Osteoporosis follow up ??Post menopausal ? Rabble Furnace Tender/Model: [employer] (S/N [id number]) CLINICAL INFORMATION: Current height: ??66 ??inches ? [...] PM T: ??06/24/2024 10:55 PM Report ID: [id number] Reading Location: ??[id number] Procedure Note Altaf Vallejo MD - 06/24/2024 EXAM DESCRIPTION: DEXA AXIAL SKELETON BONE DENSITY 1 OR MORE SITES REASON FOR STUDY: 74 y/o year old F with given history of:osteoporosis Osteoporosis follow up Post menopausal Rabble Furnace Tender/Model: [employer] SL (S/N [id number]) CLINICAL INFORMATION: Current height: 66 inches Maximum [...] Altaf Vallejo M.D. MF: LEENA Report ID: [id number] Reading Location: [place] [address] Anson Jeffries FILTER PLANT OPERATOR IMG DXA PROCEDURES Final Result documented in this encounter Visit Diagnoses Diagnosis Other osteoporosis, unspecified pathological fracture presence documented in this encounter Care Teams Web Press Operator Relationship Specialty Start Date End Date Lalito England MD [address] [place] [address] PCP - General 08/03/19 documented as of this encounter
--- OUTSIDE RECORDS SUMMARY | 2024-07-11 22:32 | XMS_ITS | Encounter Summary ---
Author Organization [facility] Healthcare Address [address] [place] [address] Care Team Providers Care Nonprofit Financial Controller Name Role Phone Lalito England MD Primary Care Provider [phone] [phone] Reason for Visit * Reason Onset Date Comments Symptom Based Call 07/02/2024 Encounter Details Date Type Department Care Team (Late st Contact Info) Description 07/02/2024 Telephone [facility] [address] [facility] [place] [address] Lalito England MD [address] [place] [address] Symptom Based Call Social History Tobacco Use Types Packs/Day Years Used Date Smoking Tobacco: Never Passive Smoke Exposure: Past Smokeless Tobacco: Never Alcohol Use Standard Drinks/Week Comments Yes 0 (1 standard drink = 0.6 oz pur e alcohol) occasional [facility] Utilities Answer Date Recorded In the past 12 months has [employer], gas, oil, or water [employer] threatened to shut off services in your [...] week 01/19/2024 How often do you attend [facility] or confucianism services? Never 01/19/2024 Do you belong to any clubs o r organizations such as mandaen groups, unions, fraternal or athletic groups, or [...] in the past 12 m [facility], were you homeless or living in a [...] on file Legal Sex Female 11:52 PM BOARD MACHINE SET UP OPERATOR Gender Identity Not on file Sexual Orientation Not on file documented as of this encounter Plan of Treatment Not on file documented as of this encounter Visit Diagnoses Not on filedocumented in this encounter Care Teams Nonprofit Financial Controller Relationship Specialty Start Date End Date Lalito England MD [address] [place] [address] PCP - General 08/03/19 documented as of this encounter
--- OUTSIDE RECORDS SUMMARY | 2024-07-11 22:32 | XMS_ITS | Encounter Summary ---
Author Organization [facility] Healthcare Address [address] [place] [address] Care Team Providers Care Pattern Storage Clerk Name Role Phone Lalito England MD Primary Care Provider [phone] [phone] Reason for Referral * MRI/CAT/PET Scan (Routine) - Closed Specialty Diagnoses / Procedures Referred By Contac t Referred To Contact Radiology Diagnoses Acute right-sided low back pain with sciatica, sciatica laterality unspecified Procedures MRI Thoracic Spine WO Contrast Anson Jeffries NP [address] [place] [address] Phone: tel: fax: [address] [phone] Referral ID Status Reason Start Date Expiration Date Visits Re quested Visits Authorized [id number] Closed 05/17/2024 08/15/2024 1 1 SPECIALIST Reason for Visit * MRI/CAT/PET Scan (Routine) - Closed Specialty Diagnoses / Procedures Referred By Contac t Referred To Contact Radiology Diagnoses Acute right-sided low back pain with sciatica, sciatica laterality unspecified Procedures MRI Thoracic Spine WO Contrast Anson Jeffries NP [address] [place] [address] Phone: tel: fax: [address] [phone] Referral ID Status Reason Start Date Expiration Date Visits Re quested Visits Authorized [id number] Closed 05/17/2024 08/15/2024 1 1 Encounter Details Date Type Department Care Team (Latest Contact Info) Description 06/21/2024 1:52 PM QA SPECIALIST - 06/21/2024 11:59 PM QA SPECIALIST Hospital Encounter [facility] [address] [place] [address] Acute right-sided low back pain with sciatica, sciatica laterality unspecified Discharge Disposition: Discharge to home or self care Social History Tobacco Use Types Packs/Day Years Used Date Smoking Tobacco: Never Passive Smoke Exposure: Past Smokeless Tobacco: Never Alcohol Use Standard Drinks/Week Comments Yes 0 (1 standard drink = 0.6 oz pur e alcohol) occasional [facility] Utilities Answer Date Recorded In the [...] often do you attend chur ch or rastafari services? 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 MRI THORACIC SPINE WO [...] PM T: ??06/22/2024 12:14 PM Report ID: [id number] Reading Location: ??[id number] Procedure Note Bin Schulz MD - 06/22/2024 [...] noting disc contact with the descending right U3mavtx root. No spinal canal stenosis demonstrated on [...] Bin Schulz M.D. ALMA: ALMA Report ID: [id number] Reading Location: [place] [address] Anson Jeffries ENERGY ENGINEER IMG MRI PROCEDURES Final Result documented in this encounter Visit Diagnoses Diagnosis Acute right-sided low back pain with sciatica, sciatica laterality unspecified documented in this encounter Care Teams Pattern Storage Clerk Relationship Specialty Start Date End Date Lalito England MD [address] [place] [address] PCP - General 08/03/19 documented as of this encounter
--- OUTSIDE RECORDS SUMMARY | 2024-07-11 22:33 | XMS_ITS | Encounter Summary ---
Author Organization [facility] Address [address] [place] [address] Phone Care Team Providers Care Roll Hand Name Role Phone Lalito England MD Primary Care Provider [phone] Reason for Referral * MRI/CAT/PET Scan (Routine) - Closed Specialty Diagnoses / Procedures Referred By Contac t Referred To Contact Radiology Diagnoses Acute right-sided low back pain with sciatica, sciatica laterality unspecified Procedures MRI Lumbar Spine WO Contrast Anson Jeffries NP [address] [place] [address] Phone: tel: fax: [address] [phone] Referral ID Status Reason Start Date Expiration Date Visits Re quested Visits Authorized [id number] Closed 05/17/2024 08/15/2024 1 1 * MRI/CAT/PET Scan (Routine) - Closed Specialty Diagnoses / Procedures Referred By Contac t Referred To Contact Radiology Diagnoses Acute right-sided low back pain with sciatica, sciatica laterality unspecified Procedures MRI Thoracic Spine WO Contrast Anson Jeffries NP [address] [place] [address] Phone: tel: fax: [address] [phone] Referral ID Status Reason Start Date Expiration Date Visits Re quested Visits Authorized [id number] Closed 05/17/2024 08/15/2024 1 1 * Diagnostic Imaging (Routine) - Closed Specialty Diagnoses / Procedures Referred By Contac t Referred To Contact Diagnoses Other osteoporosis, unspecified pathological fracture presence Procedures DEXA Axial Skeleton Bone Density Multi Site DEXA Axial Skeleton Bone Density Multi Site Anson Jeffries NP [address] [place] [address] Phone: tel: fax: [address] [phone] Referral ID Status Reason Start Date Expiration Date Visits Re quested Visits Authorized [id number] Closed 04/26/2024 05/26/2025 1 1 * MRI/CAT/PET Scan (Routine) - Closed Specialty Diagnoses / Procedures Referred By Contac t Referred To Contact Radiology Diagnoses Degenerative cervical spinal stenosis Procedures CT Thoracic Spine WO Contrast CT Thoracic Spine WO Contrast Anson Jeffries NP [address] [place] [address] Phone: tel: fax: [address] [phone] Referral ID Status Reason Start Date Expiration Date Visits Re quested Visits Authorized [id number] Closed 04/26/2024 05/26/2025 1 1 * MRI/CAT/PET Scan (Routine) - Closed Specialty Diagnoses / Procedures Referred By Contac t Referred To Contact Radiology Diagnoses Degenerative cervical spinal stenosis Procedures CT Lumbar Spine WO Contrast CT Lumbar Spine WO Contrast Anson Jeffries NP [address] [place] [address] Phone: tel: fax: [address] [phone] Referral ID Status Reason Start Date Expiration Date Visits Re quested Visits Authorized [id number] Closed 04/26/2024 05/26/2025 1 1 Encounter Details Date Type Department Care Team (Late st Contact Info) Description 04/26/2024 Orders Only [facility] Neurosurgery [address] [facility] [address] [place] [address] Anson Jeffries NP [address] [place] [address] Degenerative cervical spinal stenosis (Primary Dx); Other osteoporosis, unspecified pathological fracture presence; Acute right-sided low back pain with sciatica, sciatica laterality unspecified Social History Tobacco Use Types Packs/Day Years Used Date Smoking Tobacco: Never Passive Smoke Exposure: Past Smokeless Tobacco: Never Alcohol Use Standard Drinks/Week Comments Yes 0 (1 standard drink = 0.6 oz pur e alcohol) occasional C Utilities Answer Date Recorded In the past 12 months has [employer] electric, gas, oil, or water company threatened [...] often do you attend chur ch or mormonism services? Never 01/19/2024 Do you belong to any clubs o r organizations such as bahai groups, unions, fraternal or athletic groups, or [...] time in the past 12 m [facility], were you homeless or living in [...] on file Legal Sex Female 11:52 PM FLAT POLISHER Gender Identity Not on file Sexual Orientation Not on file documented as of this encounter Miscellaneous Notes * Addendum Note - Sola Giraldo CMA - 04/26/2024 3:06 PM CDTAddended by: SOLA GIRALDO on: 04/26/2024 03:23 PM Modules accepted: Orders * Addendum Note - Sola Giraldo CMA - 04/26/2024 3:06 PM CDTAddended by: SOLA GIRALDO on: 04/26/2024 03:47 PM Modules accepted: Orders documented in this encounter Plan of Treatment Not on file documented as of this encounter Results * CT Lumbar Spine WO Contrast (06/24/2024 3:19 PM FLAT POLISHER) Anatomical Region Laterality Modality Spine N/A Computed Tomogra phy 07/02/2024 8:38 AM FLAT POLISHER Narrative 07/02/2024 8:45 AM FLAT POLISHER EXAM DESCRIPTION: ?? CT THORACIC SPINE WO [...] AM T: ??07/02/2024 8:45 AM Report ID: [id number] Reading Location: ??[id number] Procedure Note Bin Schulz MD - 07/02/2024 [...] Bin Schulz M.D. ALMA: ALMA Report ID: [id number] Reading Location: [place] [address] Anson Jeffries NP IMG CT PROCEDURES Final Result * CT Thoracic Spine WO Contrast (06/24/2024 3:18 PM FLAT POLISHER) Anatomical Region Laterality Modality Spine N/A Computed Tomogra phy 07/02/2024 8:38 AM FLAT POLISHER Narrative 07/02/2024 8:45 AM FLAT POLISHER EXAM DESCRIPTION: ?? CT THORACIC SPINE WO [...] AM T: ??07/02/2024 8:45 AM Report ID: [id number] Reading Location: ??[id number] Procedure Note Bin Schulz MD - 07/02/2024 [...] Bin Schulz M.D. ALMA: ALMA Report ID: [id number] Reading Location: [place] [address] [place] Anson Jeffries NP IMG CT PROCEDURES Final Result * DEXA Axial Skeleton Bone Density Multi Site (06/24/2024 2:55 PM FLAT POLISHER) Anatomical Region Laterality Modality Body N/A Other 06/24/2024 10:5 4 PM FLAT POLISHER Narrative 06/24/2024 10:55 PM FLAT POLISHER EXAM DESCRIPTION: DEXA AXIAL SKELETON BONE DENSITY 1 OR MORE SITES REASON FOR STUDY: 74 y/o ?? year old ??F ??with given history of: ??osteoporosis ?? Osteoporosis follow up ??Post menopausal ? 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 MF: LEENA Report ID: [id number] Reading Location: [place] [address] Anson Jeffries SALES OFFICE ADMINISTRATOR IMG DXA PROCEDURES Final Result * MRI Thoracic Spine WO Contrast (06/21/2024 3:15 PM FLAT POLISHER) Anatomical Region Laterality Modality Spine N/A Magnetic Resonan ce 06/22/2024 11:5 2 AM FLAT POLISHER Narrative 06/22/2024 12:14 PM FLAT POLISHER EXAM DESCRIPTION: ?? MRI THORACIC SPINE WO [...] PM T: ??06/22/2024 12:14 PM Report ID: [id number] Reading Location: ??[id number] Procedure Note Bin Schulz MD - 06/22/2024 [...] noting disc contact with the descending right [id number] root. No spinal canal stenosis demonstrated on [...] Bin Schulz M.D. ALMA: ALMA Report ID: [id number] Reading Location: [place] [address] [place] Anson Jeffries NP IMG MRI PROCEDURES Final Result * MRI Lumbar Spine WO Contrast (06/21/2024 3:07 PM FLAT POLISHER) Anatomical Region Laterality Modality Spine N/A Magnetic Resonan ce 06/22/2024 11:5 2 AM FLAT POLISHER Narrative 06/22/2024 12:14 PM FLAT POLISHER EXAM DESCRIPTION: ?? MRI THORACIC SPINE WO [...] PM T: ??06/22/2024 12:14 PM Report ID: [id number] Reading Location: ??[id number] Procedure Note Bin Schulz MD - 06/22/2024 [...] noting disc contact with the descending right [id number] root. No spinal canal stenosis demonstrated on [...] Bin Schulz M.D. ALMA: ALMA Report ID: [id number] Reading Location: [place] [address] Anson Jeffries SALES OFFICE ADMINISTRATOR IMG MRI PROCEDURES Final Result documented in this encounter Visit Diagnoses Diagnosis Degenerative cervical spinal stenosis- Primary Spinal stenosis in cervical region Other osteoporosis, unspecified pathological fracture presence Acute right-sided low back pain with sciatica, sciatica laterality unspecified Acute right-sided low back pain with sciatica, sciatica laterality unspecified Acute right-sided low back pain with sciatica, sciatica laterality unspecified Other osteoporosis, unspecified pathological fracture presence Degenerative cervical spinal stenosis Spinal stenosis in cervical region Degenerative cervical spinal stenosis Spinal stenosis in cervical region documented in this encounter Care Teams Roll Hand Relationship Specialty Start Date End Date Lalito England MD [address] [place] [address] PCP - General 08/03/19 documented as of this encounter
--- OUTSIDE RECORDS SUMMARY | 2024-07-11 22:33 | XMS_ITS | Encounter Summary ---
Author Organization [facility] Healthcare Address [address] [place] [address] Care Team Providers Care Installation Service Representative Name Role Phone Lalito England MD Primary Care Provider [phone] Reason for Visit * Auth/Cert (Routine) Specialty Diagnoses / Procedures Referred By Contac t Referred To Contact Diagnoses Family history of colon cancer in father Encounter for screening colonoscopy Adenomatous polyp of colon, unspecified part of colon Family history of colon cancer in father [Z80.0] Encounter for screening colonoscopy [Z12.11] Adenomatous polyp of colon, unspecified part of colon [D12.6] Procedures NV COLONOSCOPY FLX DX W/COLLJ SPEC WHEN PFRMD COLONOSCOPY Referral ID Status Reason Start Date Expiration Date Visits Re quested Visits Authorized [id number] 1 1 Encounter Details Date Type Department Care Team (Late st Contact Info) Description 04/13/2024 12:54 PM CDT Anesthesia Event [address] [address] Clayton Gonzales MD [address] [place] [id number] Anesthesia Record Procedure Summary Procedure Name Responsible Anesthesiologist Anesthesia Start Time Anesthesia Stop Time COLON REMOVAL SNARE Clayton Gonzales MD 04/13/24 1254 04/13/24 1338 Events Date Time Event Comment 04/13/2024 1248 1251 In Room 1254 An Start 1255 An Start Data 1258 An Induction The patient was reevaluated immediately before moderate or deep sedation use and before anesthesia induction. 1259 An Intubation 1259 Anesthesia Ready 1302 Proc Start 1336 Proc Fin 1338 Handoff to RN I completed my handoff to the receiving nurse during which we: 1. Patient identified 2. Responsible provider identified 3. Pertinent medical history reviewed 4. Procedure type and surgical course discussed 5. Intraoperative anesthetic management and any significant issues discussed 6. Expectations and concerns for postop period discussed 7. Questions solicited from receiving nurse 8. Patient disposition at the time of handoff: PACU 1338 An Stop 1340 Out of Room Meds Name Total propofol 260 mg lidocaine (cardiac) syringe 2 % 60 mg * Agents Name O2 * Blood No blood administrations on file. Lines, Drains, and Airways Type Details Placement Removal RETIRED Wound 01/16/22; 1834; Yes; Anterior, Right; Foot; 04/20/24; 73601/16/22 1834 by Palmira Manley RN 04/20/24 0737 by Susy Chavez RN RETIRED Wound 01/16/22; 1835; Yes; Left; Heel; 04/20/24; 0701/16/22 1835 by Palmira Manley RN 04/20/24 0737 by Susy Chavez RN RETIRED Wound 01/16/22; 1835; Left ; Ankle/malleolus; 04/20/24; 0701/16/22 1835 by Palmira Manley RN 04/20/24 0736 by Susy Chavez RN RETIRED Wound 01/16/22; 1836; Anterior, Left; Foot; 04/20/24; 0701/16/22 1836 by Palmira Manley RN 04/20/24 0736 by Susy Chavez RN RETIRED Wound 11/14/23; 1034; Yes; Skin tear; Left; Frazier/tibia; 04/20/24; 73611/14/23 1034 by uSsy Rodney RN 04/20/24 0737 by Susy Chavez RN RETIRED Surgical Site 11/24/23; 1405; Posterior; Spine; 04/20/24; 73611/24/23 1405 by Paola Stuart RN 04/20/24 0737 by Susy Chavez, SEBASTIÁN RETIRED Surgical Site 11/24/23; 1720; Diego ck; Dermabond, Aquacel; 04/20/24; 0737 11/24/23 1720 by Paola Stuart RN 04/20/24 0737 by Susy Chavez RN RETIRED Wound 11/24/23; 1919; Left , Right; Calf; reddend; 04/20/24; 0741 11/24/23 1919 by Nhung Bose RN 04/20/24 0741 by Susy Chavez RN RETIRED Surgical Site 02/10/24; 1028; Ri ght; Shoulder; 04/20/24; 73502/10/24 1028 by Candace Enciso RN 04/20/24 0736 by Susy Chavez RN Peripheral IV Placement Date: 04/13/24; Placement Time: 1204; Catheter Size: 20 G; Orientation: Posterior, Right; Location: Hand; Site Prep: Alcohol, Chlorhexidine; Technique: Anatomical landmarks; Inserted by: Tracy Giles RN (previous attempt by rehab nursing tech); Insertion Attempts: 2; Patient Tolerance: Tolerated well; Removal Date: 04/20/24; Removal Time: 73604/13/24 1204 by Tracy Giles RN 04/20/24 0737 by Susy Chavez RN documented in this encounter Social History Tobacco Use Types Packs/Day Years Used Date Smoking Tobacco: Never Passive Smoke Exposure: Past Smokeless Tobacco: Never Alcohol Use Standard Drinks/Week Comments Yes 0 (1 standard drink = 0.6 oz pur e alcohol) occasional 1Lay Utilities Answer Date Recorded In the past 12 months has Cardio control, gas, oil, or water [employer] threatened to shut off services in your [...] week 01/19/2024 How often do you attend [facility] or yazidism services? Never 01/19/2024 Do you belong to any clubs o r organizations such as congregation groups, unions, fraternal or athletic groups, or [...] any time in the past 12 m [facility], were you homeless or living in a fdc (including now)? No 01/19/2024 Personal Safety Answer Date Recorded Have you ever been in or are you currently in a harmful physical or emotional relationship or is someone making you feel afraid or unsafe? Denies 02/10/2024 Comments No Sex and Gender Information Value Date Recorded Sex Assigned at Not on file Legal Sex Female 11:52 PM DRIP PUMPER Gender Identity Not on file Sexual Orientation Not on file documented as of this encounter OR Notes * Anesthesia Postprocedure Evaluation - Clayton Gonzales MD - 04/13/2024 1:38 PM CDT Patient: Criss Ly Procedure Summary Date: 04/13/24 Room / Location: [facility] ENDOSCOPY ROOM 1 / [facility]COPY Anesthesia Start: 1254 Anesthesia Stop: 1338 Procedures: COLON REMOVAL SNARE ENDO ADD ON COLON BIOPSY Diagnosis: Family history of colon cancer in father Encounter for screening colonoscopy Adenomatous polyp of colon, unspecified part of colon (Family history of colon cancer in father [Z80.0]) (Encounter for screening colonoscopy [Z12.11]) (Adenomatous polyp of colon, unspecified part of colon [D12.6]) Providers: Karlene Ramirez MD Responsible Provider: Clayton Gonzales MD Anesthesia Type: general ASA Status: 4 Anesthesia Type: general Last vitals BP 117/65 Pulse 70 Temp 36.5 ??C (97.7 ??F) (Temporal) Resp 16 SpO2 97% Anesthesia Post Evaluation Patient location during evaluation: PACU Patient participation: complete - patient participated Level of consciousness: fully awake Pain score: 0 Pain management: adequate Airway patency: adequate Evidence of recall: no Cardiovascular status: acceptable Respiratory status: acceptable Hydration status: acceptable Pt is: normothermic Nausea/Vomiting status: none No notable events documented. * Anesthesia Preprocedure Evaluation - Clayton Gonzales MD - 04/13/2024 11:50 AM CDT Images from the original note were not included. Anesthesia Evaluation Criss Ly is a 73 y.o. female COLONOSCOPY Pre-Op Diagnosis Codes: * Family history of colon cancer in father [Z80.0] * Encounter for screening colonoscopy [Z12.11] * Adenomatous polyp of colon, unspecified part of colon [D12.6] HISTORY Past Medical History Information obtained from: patient and chart. Information obtained during: In Person Neurological Neuro/Psych system: negative Cardiovascular + Hypertension + Hyperlipidemia + CHF + DVT/PE Respiratory + Asthma Dyspnea frequency: 2 days/week or less. Rescue inhaler use: never. Pertinent negatives: non-smoker Comments: sarcoidosis Gastrointestinal + GERD - on daily therapy. Renal / + Renal disease - CKD Musculoskeletal/Pain + Osteoarthritis Endocrine / Other + Diabetes mellitus - Diabetes type 2. Outpatient insulin use: current. + Obesity (BMI >30)- morbid obesity (BMI>40). + Cancer history Cancer type: Malignant Melanoma. 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 ([facility]) ([facility]) 01/06/2024 Secondary hyperparathyroidism of renal origin ([facility]) 01/06/2024 Cervical stenosis of spine 11/24/2023 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 ([facility]) 11/10/2023 Melanoma of right upper arm ([facility]) 10/27/2023 BMI 39.0-39.9,adult 10/05/2023 Chronic anticoagulation 10/05/2023 Family history of colon cancer in father 05/27/2023 Encounter for screening colonoscopy 05/27/2023 Personal history of COVID-19 02/18/2022 Acute embolism and thrombosis of right femoral vein ([facility]) 01/18/2022 Age-related osteoporosis without current pathological fracture 01/18/2022 Difficulty in walking, not elsewhere classified 01/18/2022 Gastro-esophageal reflux disease without esophagitis 01/18/2022 Hypertension secondary to endocrine disorders 01/18/2022 Spinal stenosis, lumbar region without neurogenic claudication 01/18/2022 Type 2 diabetes mellitus with diabetic neuropathy, unspecified ([facility]) 01/18/2022 Unsteadiness on feet 01/18/2022 Type 2 diabetes mellitus with hyperlipidemia ([facility]) 01/17/2022 Chronic back pain 01/17/2022 Weakness of both lower extremities 01/16/2022 Lumbar radiculopathy 12/06/2021 Sacroiliitis ([facility]) 09/07/2021 Cervicalgia 09/07/2021 Low back pain 09/07/2021 Insomnia secondary to chronic pain 09/07/2021 Degenerative cervical spinal stenosis 09/07/2021 Degenerative disc disease, cervical 09/07/2021 CKD (chronic kidney disease) stage 4, GFR 15-29 ml/min ([facility]) ([facility]) 08/23/2021 Morbid (severe) obesity due to excess calories ([facility]) 08/22/2021 DDD (degenerative disc disease), lumbar 08/17/2021 Degenerative lumbar spinal stenosis 08/17/2021 Lumbar post-laminectomy syndrome 08/17/2021 Persistent vomiting 11/17/2018 Hx of colonic polyps 09/04/2018 Family hx of colon cancer 09/04/2018 Healthcare maintenance 12/27/2016 Medication management 12/27/2016 Idiopathic osteoporosis with pathological fracture 08/14/2015 Arthralgia of hip 07/21/2015 Adenomatous polyp of colon 04/08/2015 Sarcoidosis of lung ([facility]) 04/08/2015 Fever 08/25/2014 Type 2 diabetes mellitus with stage 3 chronic kidney disease, with long-term current use of insulin([facility]) 11/27/2013 Severe obesity (BMI 35.0-39.9) with comorbidity ([facility]) 11/27/2013 Hyperlipidemia 04/01/2012 Disorder of peripheral nervous system ([facility]) 04/01/2012 Hypertension associated with diabetes ([facility]) 04/01/2012 Past Medical History: Diagnosis Date Asthma Benign hypertension with CKD (chronic kidney disease) stage III ([facility]) Cervicalgia 11/24/2023 Dvt femoral (deep venous thrombosis) (CMS/HCC) (HCC) r eg Gastroesophageal reflux disease GERD HX OTHER MEDICAL 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 2008.; Comments: [facility] 07/25/2015 - HX OTHER MEDICAL Breast reduction 2009.; Comments: [facility] 07/25/2015 - HX OTHER MEDICAL left hip and leg surgery HX OTHER MEDICAL conversion of previous hip arthroplasty left hip; Comments: [facility] TCU unit 02/06 - 02/17/16 for rehabilitation. Hyperlipidemia Hyperlipidemia Hypertension Hypertension Lumbar stenosis Osteoarthritis Osteoarthritis Osteoporosis Polyp of colon colon [...] Block COLONOSCOPY 09/15/2013 COLONOSCOPY 09/2018 COLONOSCOPY 04/13/2024 LUMBAR SPINE SURGERY Surgery, lumbar spine NECK SURGERY 06/2008 4 discs replaced in neck, Dr. Srinath Tovar NECK SURGERY november 8 screws in neck NECK SURGERY 11/24/2023 Pt had plate and 8 screws added OTHER SURGICAL HISTORY Fall: Medical Management REDUCTION MAMMAPLASTY Bilateral 2008 SHOULDER SURGERY 02/10/2024 Pt had melanoma cut out. TONSILLECTOMY tonsillectomy TOTAL HIP ARTHROPLASTY Left 02/05/2016 Dr. David Sykes, [facility] - conversion of previous hip arthroplasty left hip: Conversion of Arthroplasty left hip TOTAL KNEE ARTHROPLASTY Left 09/27/2005 Left TKA - Dr. Cole Beckham TOTAL KNEE ARTHROPLASTY Right 08/27/2001 Right TKA - Dr. Light Serot OB History 0 Para 0 Term 0 0 AB 0 Living 0 SAB 0 IAB 0 Ectopic 0 Multiple 0 Live Births 0 No Known Allergies Med List Status: Nurse Complete Set By: Tracy Giles RN at 04/12/2024 11:55 AM Taking? Last Dose Start Date End Date Provider acetaminophen 500 mg capsule Unknown 12/04/23 -- Andi Simmons NP Take 2 capsules (1,000 mg total) by mouth every 6 (six) hours albuterol HFA (PROVENTIL HFA,VENTOLIN HFA,PROAIR HFA) 90 mcg/actuation inhaler Unknown -- -- Sofiya Gibbons MD apixaban (ELIQUIS) 5 mg tablet Past Week 12/08/23 -- Andi Simmons NP Take 1 tablet (5 mg total) by mouth 2 (two) times a day Do not restart eliquis until two weeks after surgery (12/07) aspirin 81 mg enteric coated tablet 04/12/2024 12/08/23 -- Andi Simmons NP Take 1 tablet (81 mg total) by mouth guest relations receptionist before breakfast Do not restart until 2 weeks after surgery (12/07) blood glucose diagnostic (Contour Next Test Strips) strip -- 09/11/23 -- Lalito England MD TEST BLOOD SUGAR 3 TIMES A DAY AND WILL MONTIOR RESPONSE. DX: E11.22. blood-glucose meter (CONTOUR NEXT USB METER) [facility] -- 07/04/14 -- Clayton Sandoval MD test as directed calcium carbonate-vitamin D3 500 mg(1,250mg) -400 unit tablet 04/12/2024 08/10/07 -- Clayton Sandoval MD Take one by mouth two times per day Patient taking differently: 500 mg cloNIDine (CATAPRES) 0.1 mg tablet 04/13/2024 06/12/23 -- Lalito England MD TAKE 1/2 TABLET BY MOUTH TWICE DAILY FOR HYPERTENSION docusate sodium (COLACE) 100 mg capsule Unknown -- -- Sofiya Gibbons MD finasteride (PROSCAR) 5 mg tablet 04/12/2024 10/24/23 -- Sofiya Gibbons MD fluticasone propionate (FLOVENT HFA) 110 mcg/actuation inhaler 04/12/2024 01/20/24 -- Sofiya Gibbons MD furosemide (LASIX) 20 mg tablet 04/12/2024 04/01/24 04/01/25 Lalito England MD TAKE 2 TABLETS (40 MG TOTAL) BY MOUTH DAILY. gabapentin (NEURONTIN) 100 mg capsule 04/12/2024 12/29/23 -- Lalito England MD Take 1 capsule (100 mg total) by mouth 4 (four) times a day Patient taking differently: Take 1 capsule (100 mg total) by mouth 4 (four) times a day One tab tid, 2 tabs at night HYDROcodone-acetaminophen (NORCO) 5-325 mg per tablet Unknown 03/17/24 -- Lalito England MD Take 1 tablet by mouth every 6 (six) hours as needed for pain insulin aspart (NovoLOG) 100 unit/mL (3 mL) pen for injection 04/12/2024 04/14/23 -- Lalito England MD Inject 15 Units under the skin 3 (three) times a day before meals lancets (MICROLET LANCET) [facility] -- 07/26/15 -- Clayton Sandoval MD test by fingerstick route 3 times daily losartan (COZAAR) 25 mg tablet 04/13/2024 01/22/24 -- Lalito England MD Take 0.5 tablets (12.5 mg total) by mouth daily Patient has not started yet, wanted to talk to methocarbamoL (ROBAXIN) 500 mg tablet -- 12/04/23 -- Andi Simmons, MARKOS Take 1 tablet (500 mg total) by mouth 3 (three) times a day Notes: Pt not taking montelukast (SINGULAIR) 10 mg tablet 04/12/2024 06/12/23 -- Lalito England MD TAKE 1 TABLET BY MOUTH AT BEDTIME FOR ALLERGIES naloxone (NARCAN) 4 mg/actuation spray,non-aerosol -- 12/28/21 -- David Caruso MD Administer 1 spray into affected nostril(s) as needed for opioid reversal Patient not taking: Reported on 02/09/2024 Nyamyc powder Unknown 10/22/23 -- Sofiya Gibbons MD omeprazole (PriLOSEC) 20 mg capsule 04/12/2024 03/25/23 -- Lalito England MD TAKE 1 CAPSUEL BY MOUTH TWICE DAILY FOR GERD Patient taking differently: Take 1 capsule (20 mg total) by mouth 2 (two) times a day pen needle, diabetic (BD Ultra-Fine Mini Pen Needle) 31 gauge x 3/16 needle -- 01/09/24 -- Lalito England MD 1 NEEDLE DIRECTED (4 PER DAY) polyethylene glycol (MIRALAX) 17 gram/dose powder Unknown 07/24/22 -- Lalito England MD Take 17 g by mouth daily Patient taking differently: Take 17 g by mouth as needed semaglutide (Ozempic) 2 mg/dose (8 mg/3 mL) pen injector injection Past Week 03/25/24 -- Lalito England MD INJECT 2 MG SUBCUTANEOUSLY ONE TIME PER WEEK SEMGLEE-yfgn 100 unit/mL (3 mL) pen for injection 04/11/2024 10/22/23 -- Sofiya Gibbons MD senna-docusate (PERICOLACE) 8.6-50 mg Unknown 12/04/23 -- Andi Simmons, MARKOS Take 2 tablets by mouth 2 (two) times a day simvastatin (ZOCOR) 40 mg tablet 04/11/2024 06/12/23 -- Lalito England MD TAKE 1 TABLET BY MOUTH AT BEDTIME triamcinolone (KENALOG) 0.1 % cream Unknown 10/24/23 -- ProviderSofiya MD Current Facility-Administered Medications: ondansetron (ZOFRAN) injection 4 mg, 4 mg, intravenous, Q30 Min PRN sodium chloride 0.9% flush 0.5-20 mL, 0.5-20 mL, intra-catheter, PRN sodium chloride 0.9% infusion, 30 mL/hr, intravenous, Continuous sodium chloride 0.9% infusion, 125 mL/hr, intravenous, Continuous Social History Tobacco Use Smoking Status Never Passive exposure: Past Smokeless Tobacco Never Alcohol Use: Not At Risk (04/12/2024) AUDIT-C Frequency of Alcohol Consumption: Never Average Number of Drinks: Patient does not drink Frequency of Binge Drinking: Never Substance and Sexual Activity Drug Use Never Family History Problem Relation Age of Onset Diabetes Mother Diabetes mellitus; Hypertension Mother Hypertension; Heart disease Father Heart disease; Heart failure Father CHF; Cause of : CHF Colon cancer Father Diabetes Brother Diabetes mellitus; Cancer Brother Lymphoma Brother Cancer -lymphoma; Stroke Brother Hypertension Brother Breast cancer Neg Hx Ovarian cancer Neg Hx Thyroid cancer Neg Hx Vitals: 04/13/24 1129 BP: 117/65 Pulse: 70 Resp: 16 Temp: 36.5 ??C (97.7 ??F) SpO2: 97% PT: No results found for requested labs within last 30 days. INR: No results found for requested labs within last 30 days. APTT: No results found for requested labs within last 30 days. Hgb A1C: No results found for requested labs within last 30 days. CBC RBC: No results found for requested labs within last 30 days. RDW: No results found for requested labs within last 30 days. MCHC: No results found for requested labs within last 30 days. MCH: No results found for requested labs within last 30 days. MCV: No results found for requested labs within last 30 days. Hct: No results found for requested labs within last 30 days. Hgb: No results found for requested labs within last 30 days. WBC: No results found for requested labs within last 30 days. MPV: No results found for requested labs within last 30 days. Platelets: No results found for requested labs within last 30 days. RDW CV: No results found for requested labs within last 30 days. RDW Sd: No results found for requested labs within last 30 days. BMP Glucose: No results found for requested labs within last 30 days. Calcium: No results found for requested labs within last 30 days. Sodium: No results found for requested labs within last 30 days. Potassium: No results found for requested labs within last 30 days. CO2: No results found for requested labs within last 30 days. Chloride: No results found for requested labs within last 30 days. BUN: No results found for requested labs within last 30 days. Creatinine: No results found for requested labs within last 30 days. EKG 11/14/23 SINUS RHYTHM LOW QRS VOLTAGE IN PRECORDIAL LEADS DOS Physical Exam Medical history, medications, and allergies reviewed. Attestation: I endorse the findings of the anesthesia pre-evaluation assessment dated: 02/10/2024. Airway Exam: Mallampati: II Cervical ROM: FROM TM distance: normal Cardiovascular Exam: Rate: regular Rhythm: regular Pulmonary Exam: LCTA, bilat Dental Exam: Appears intact Current state: Patient's current state is cooperative and interactive. Anesthesia Plan ASA 4 My patient is approved for the Anesthesia Controlled Medication protocol when under care of a TECHNICAL SUPPORT ASSISTANT Planned anesthesia: General Team communication plan: oral ET tube Induction: Induction: intravenous. Postoperative Plan: Patient's planned disposition post procedure is Outpatient. Informed Consent: Discussed plan with attending and TECHNICAL SUPPORT ASSISTANT. Anesthesia plan and risks discussed with patient. Consent and Attending signature: I and/or my designee have discussed the anesthesia plan, benefits, possible alternatives, parental presence at time of induction (if indicated), and clinically relevant risks that may include dental injury, unintentional awareness, and/or other complications. The patient and/or parent/legal guardian understand, and agree to proceed. All questions answered. documented in this encounter Plan of Treatment Not on file documented as of this encounter Visit Diagnoses Not on filedocumented in this encounter Administered Medications Inactive Administered Medications - up to 3 most recent administrations Medication Order MAR Action Action Date Dose Rate Site lidocaine (PF) (XYLOCAINE) 20 mg/mL (2 %) preservative free injection intravenous, As needed, Starting on Fri04/13/24 at 1301, Anesthesia Intra-op Given 04/13/2024 1:01 PM CDT 60 mg propofoL (DIPRIVAN) 10 mg/mL IV intravenous, As needed, Starting on Fri04/13/24 at 1301, Anesthesia Intra-op Given 04/13/2024 1:31 PM CDT 20 mg Given 04/13/2024 1:24 PM CDT 20 mg Given 04/13/2024 1:17 PM CDT 60 mg documented in this encounter Care Teams Installation Service Representative Relationship Specialty Start Date End Date Lalito England MD [address] [place] [address] PCP - General 08/03/19 documented as of this encounter
--- OUTSIDE RECORDS SUMMARY | 2024-07-11 22:33 | XMS_ITS | Encounter Summary ---
Author Organization [facility] Healthcare Address [address] [place] [address] Care Team Providers Care Patient Carrier Name Role Phone Lalito England MD Primary Care Provider [phone] Reason for Referral * Diagnostic Imaging (Routine) - Closed Specialty Diagnoses / Procedures Referred By Giuliana boone Referred To Contact Diagnoses Melanoma of right upper arm (HCC) Procedures NM Lymphoscintigraphy (Skin Cancer) Mark Pickett MD [address] [id number] [place] [address] Phone: tel: fax: [address] [phone] Referral ID Status Reason Start Date Expiration Date Visits Re quested Visits Authorized [id number] Closed 04/12/2024 05/12/2025 2 2 Reason for Visit * Auth/Cert (Routine) Specialty Diagnoses / Procedures Referred By Giuliana boone Referred To Contact Diagnoses 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) [C43.61] Procedures VT INTRAOP SENTINEL LYMPH NODE ID W/DYE INJECTION RIGHT SENTINEL LYMPH NODE BIOPSY (PRE OP LYMPHOSCINTIGRAPHY (GENERAL, 1% LIDO WITH EPI; NEOPROTIN) Referral ID Status Reason Start Date Expiration Date Visits Re quested Visits Authorized [id number] 1 1 Encounter Details Date Type Department Care Team (Latest Contact Info) Description 04/20/2024 6:49 AM CDT - 04/20/2024 11:59 PM CDT Hospital Encounter [facility] [address] [place] [address] Melanoma of right upper arm (HCC) Discharge Disposition: Discharge to home or self care Social History Tobacco Use Types Packs/Day Years Used Date Smoking Tobacco: Never Passive Smoke Exposure: Past Smokeless Tobacco: Never Alcohol Use Standard Drinks/Week Comments Yes 0 (1 standard drink = 0.6 oz pur e alcohol) occasional [facility] Utilities Answer Date Recorded In the [...] week 01/19/2024 How often do you attend [facility] or orthodox services? Never 01/19/2024 Do you belong to any clubs o r organizations such as taoist groups, unions, fraternal or athletic groups, or [...] place to sleep or slept in a chcf (including now)? No 07/16/2022 Housing Stability Vital [...] time in the past 12 m [facility], were you homeless or living in a chcf (including now)? No 01/19/2024 Personal Safety Answer Date Recorded Have you ever been in or are you currently in a harmful physical or emotional relationship or is someone making you feel afraid or unsafe? 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 Do not restart until 2 [...] mg elemental)-500 unit capsule Take by mouth cloNIDine (CATAPRES) 0.1 mg tabletIndications:H ypertension associated [...] daily Has not started 4 fluticasone propionate (FLOVENT HFA) 110 mcg/actuation [...] polyneuropathy, without long-term current use of insulin ([facility]) Inject 15 Units under the skin 3 [...] needed for opioid reversal 1 each 2 ondansetron ODT (ZOFRAN-ODT) 8 mg disintegrating tabletIndications:P [...] 0.1 % cream Apply topically legs 4 cephalexin (KEFLEX) 500 mg capsuleIndications: Skin/Soft Tissue Infection Take 1 capsule (500 mg total) by mouth 2 (two) times a day for 10 days 20 capsule 4 04/30/20 24 fluticasone propionate (FLONASE) 50 mcg/actuation nasal spray Administer 2 sprays into each nostril daily 4 05/25/20 24 HYDROcodone-acetami nophen (NORCO) 5-325 mg per tabletIndications:P ain Take 1 tablet by mouth every 6 (six) hours as needed for pain 60 tablet 4 05/17/20 24 Nyamyc powder Apply topically employment adjudicator before breakfast 4 05/26/20 24 omeprazole (PriLOSEC) 20 mg capsule TAKE 1 CAPSUEL BY MOUTH TWICE DAILY FOR GERD 180 capsule 5 3 06/28/20 24 documented as of this encounter Discharge Disposition Disposition Code Departure Means Destination Discharge to home or self care documented in this encounter Plan of Treatment Not on file documented as of this encounter Procedures Procedure Name Priority Date/Time Associated Diagnosis Comments NM LYMPHOSCINTIGRAPHY (SKIN CANCER) Schedule Routine, Read Routine (OP Routine) 04/20/2024 11:16 AM CDT Melanoma of right upper arm (HCC) documented in this encounter Results * NM Lymphoscintigraphy (Skin Cancer) (04/20/2024 11:16 [...] AM T: ??04/20/2024 11:46 AM Report ID: [id number] Reading Location: ??[id number] Procedure Note Néstor Davis MD - 04/20/2024 [...] Néstor Davis M.D. LB: ARVIND Report ID: [id number] Reading Location: [id number] us Mark Pickett MD IMG NM PROCEDURES Fi nal Result documented in this encounter Visit Diagnoses Diagnosis Melanoma of right upper arm (HCC) documented in this encounter Care Teams Patient Carrier Relationship Specialty Start Date End Date Lalito England MD [address] [place] [address] PCP - General 08/03/19 documented as of this encounter
--- OUTSIDE RECORDS SUMMARY | 2024-07-11 22:33 | XMS_ITS | Encounter Summary ---
Author Organization [facility] Address [address] [place] [address] Phone Care Team Providers Care Assistant Superintendent For Curriculum Name Role Phone Lalito England MD Primary Care Provider [phone] Reason for Referral * MRI/CAT/PET Scan (Routine) - Authorized Specialty Diagnoses / Procedures Referred By Contac t Referred To Contact Radiology Diagnoses Melanoma of right upper arm (HCC) Procedures PET/CT FDG Skull to Thigh Yaniv Callaway MD [id number] [place] [address] Phone: tel: fax: [address] [phone] Referral ID Status Reason Start Date Expiration Date V isits Requested Visits Authorized [id number] Authorized 04/22/2024 05/22/2025 2 2 Reason for Visit * Reason Comments Consult * Consultation (Routine) - Authorized Specialty Diagnoses / Procedures Referred By Contac t Referred To Contact Oncology Diagnoses Melanoma of right upper arm (HCC) Mark Pickett MD [address] [facility] [id number] [place] [address] Phone: tel: fax: Nicolás Weinberg MD [address] [place] [address] Phone: tel: fax: Referral ID Status Reason Start Date Expiration Date Visits Requested Visits Authorized [id number] Authorized Specialty Services Required 07/13/2024 12 12 Encounter Details Date Type Department Care Team (Late st Contact Info) Description 04/22/2024 1:30 PM CDT Office Visit [facility] On[facility] [address] [place] [address] [address] [place] [id number] Yaniv Callaway MD [id number] [place] [address] Melanoma of right upper arm (HCC); 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 Never 01/19/2024 Do you belong to any clubs o r organizations such as taoism groups, unions, fraternal or athletic groups, or [...] you are drinking? 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 Gender Identity Not on file Sexual Orientation Not on file documented as of this encounter Last Filed Vital Signs Vital Sign Reading Time Taken Comments Blood Pressure 151/48 04/22/2024 1:16 PM CDT Pulse 84 04/22/2024 1:16 PM CDT Temperature 36.4 ??C (97.5 ??F) 04/22/2024 1:16 PM CD T Respiratory Rate 20 04/22/2024 1:16 PM CDT Oxygen Saturation 97% 04/22/2024 1:16 PM CDT Inhaled Oxygen Concentration - - Weight 98.9 kg (218 lb) 04/22/2024 1:16 PM CDT w ith shoes on Height 160 cm (5' 3 ) 04/22/2024 1:16 PM CDT wit h shoes on Body Mass Index 38.62 04/22/2024 1:16 PM CDT documented in this encounter Progress Notes * Yaniv Callaway MD - 04/22/2024 1:30 PM CDT Images from the original note were not included. [facility] Oncology [address] [place] [address] MEDICAL OFFICE [facility] [address] [address] HEMATOLOGY AND MEDICAL ONCOLOGY NEW PATIENT VISIT Patient Name: Criss Ly Date of Visit: 04/22/2024 : 1950 Age: 73 y.o. Presenting Complaint: Criss Ly is seen in our office [...] brought this to the attention of her dental technology advisor whoperformed a biopsy which was apparently consistent with melanoma. The patient recalls it measuring 0.5 mm but I did not have original pathology data at the time of this dictation. She was referred toDr. Nieves for definitive excision, and on February 10 [...] headache and no focal areas of weakness. Medications: Current Outpatient Medications: acetaminophen, 1,000 mg, oral, Q6H GOPAL albuterol HFA, 2 puff, inhalation, Q6H PRN apixaban, 5 mg, oral, BID aspirin, 81 mg, oral, Daily - 0600 Contour Next Test Strips, TEST BLOOD SUGAR 3 TIMES A DAY AND WILL MONTIOR RESPONSE. DX: E11.22. 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 2007.; Comments: [facility] 07/25/2015 - HX OTHER MEDICAL Breast reduction 2009.; Comments: [facility] 07/25/2015 - HX OTHER MEDICAL left hip and leg surgery HX OTHER MEDICAL conversion of previous hip arthroplasty left hip; Comments: [facility] TCU unit 02/06 - 02/17/16 for rehabilitation. [...] HIP ARTHROPLASTY Left 02/05/2016 Dr. David Sykes, [facility] - conversion of previous hip arthroplasty left [...] distress. Uses a walker. Vital signs: BP 151/48 (BP Location: Right arm) Pulse 84 Temp 36.4 ??C (97.5 ??F) (Skin) Resp20 Ht 160 cm (5' 3 ) Comment: with shoes on Wt 98.9 kg (218 lb) Comment: with shoes on SpO2 97% BMI 38.62 kg/m?? Performance Status: ECOG Level 2 Pain Scale: 5/10 (chronic back pain.) HEENT: No oral or pharyngeal masses. There is no ulceration or thrush. There is no sinus tenderness. Neck: Supple. There is no thyromegaly. Lymph [...] petechiae or ecchymoses. No evidence of malignancy. Musculoskeletal: No bony or muscular tenderness. No joint effusions Extremities: No cyanosis, clubbing or edema. Neurologic: Comprehension and speech normal. Cranial nerves intact. No focality in motor, sensory or reflex exams. Labs/Imaging: Lab on 04/22/2024 Component Date Value Ref Range Status WBC 04/22/2024 8.7 3.8 - 9.9 K/cumm Final Testing performed by: [facility] [address], Medical Office [facility] B [facility] [address], [place] [address] Hgb 04/22/2024 10.1 (L) 11.9 - 15.5 g/dL Final Testing performed by: [facility] [address], Medical Office [facility] [address], [place] [address] Hct 04/22/2024 31.3 (L) 35.6 - 45.5 % Final Testing performed by: [facility] [address], Medical Office [facility] B [facility] [address], [place] [address] Plt 04/22/2024 184 150 - 400 K/cumm Final Testing performed by: [facility] [address], Medical Office [facility] B [facility] [address], [place] [address] MPV 04/22/2024 9.5 9.1 - 12.3 fL Final Testing performed by: [facility] [address], Medical Office [facility] [address], [place] [address] RBC 04/22/2024 3.53 (L) 3.90 - 5.20 M/cumm Final Testing performed by: [facility] [address], Medical Office [facility] B [facility] [address], [place] [address] MCV 04/22/2024 88.7 81.3 - 96.4 fL Final Testing performed by: [facility] [address], Medical Office [facility] [address], [place] [address] MCH 04/22/2024 28.6 27.1 - 33.3 pg Final Testing performed by: [facility] [address], Medical Office [facility] [address], [place] [address] MCHC 04/22/2024 32.3 32.3 - 35.7 g/dL Final Testing performed by: [facility] [address], Medical Office [address], [place] [address] RDW CV 04/22/2024 13.4 11.1 - 14.9 % Final Testing performed by: [facility] [address], Medical Office [facility] [address], [place] [address] RDW SD 04/22/2024 43.6 35.7 - 48.1 fL Final Testing performed by: [facility] [address], Medical Office [facility] [address], [place] [address] NRBC abs 04/22/2024 Not Measured 0.00 - 0.01 K/cumm Final Testing performed by: [facility] [address], Medical Office [facility] [address], [place] [address] Sodium 04/22/2024 141 135 - 145 mmol/L Final Testing performed by: [place], [address] Potassium, pl 04/22/2024 3.6 3.3 - 4.9 mmol/L Final Testing performed by: [place], [address] Chloride 04/22/2024 104 97 - 110 mmol/L Final Testing performed by: [place], [address] CO2 04/22/2024 26 22 - 32 mmol/L Final Testing performed by: [place], [address] Anion gap 04/22/2024 11 2 - 15 mmol/L Final Testing performed by: [place], [address] BUN 04/22/2024 16 6 - 25 mg/dL Final Testing performed by: [place], [address] Creatinine 04/22/2024 1.30 (H) 0.60 - 1.10 mg/dL Final Testing performed by: [place], [address] Glucose 04/22/2024 98 70 - 199 mg/dL [...] was last revised 2022. Testing performed by: [place], [address] Calcium 04/22/2024 9.2 8.5 - 10.3 mg/dL Final Testing performed by: [place], [address] Bilirubin, total 04/22/2024 0.3 0.1 - 1.2 mg/dL Final Testing performed by: [place], [address] Protein, pl 04/22/2024 6.8 6.5 - 8.5 g/dL Final Testing performed by: [place], [address] Albumin 04/22/2024 3.7 3.5 - 5.0 g/dL Final Testing performed by: [place], [address] Alk phos 04/22/2024 70 40 - 130 Units/L Final Testing performed by: [place], [address] ALT 04/22/2024 9 7 - 45 Units/L Final Testing performed by: [place], [address] AST 04/22/2024 13 10 - 45 Units/L Final Testing performed by: [place], [address] Neutrophil abs 04/22/2024 6.1 1.5 - 6.5 K/cumm Final Testing performed by: [facility] [address], Medical Office B[address], [place] [address] Imm gran abs 04/22/2024 0.0 0.0 - 0.1 K/cumm Final Testing performed by: [facility] [address], Medical Office [address], [place] [address] Lymphocyte abs 04/22/2024 1.8 0.8 - 3.3 K/cumm Final Testing performed by: [facility] [address], Medical Office [facility] [address], [place] [address] Monocyte abs 04/22/2024 0.6 0.2 - 0.8 K/cumm Final Testing performed by: [facility] [address], Medical Office [facility] [address], [place] [address] Eosinophil abs 04/22/2024 0.2 0.0 - 0.5 K/cumm Final Testing performed by: [facility] [address], Medical Office [facility] [address], [place] [address] Basophil abs 04/22/2024 0.1 0.0 - 0.1 K/cumm Final Testing performed by: [facility] [address], Medical Office [facility] [address], [place] [address] Neutrophil pct 04/22/2024 70.2 % Final Comment: Interpretive Data Percent cell count reference ranges are not reported, since discordance with absolute values may lead to misinterpretation of CBC data. Current Interpretive Data was last revised on 2022. Testing performed by: [facility] [address], Medical Office [facility] [address], [place] [address] Imm gran pct 04/22/2024 0.1 % Final Comment: Interpretive Data Percent cell count reference ranges are not reported, since discordance with absolute values may lead to misinterpretation of CBC data. Current Interpretive Data was last revised on 2022. Testing performed by: [facility] [address], Medical Office [facility] [address], [place] [address] Lymphocyte pct 04/22/2024 20.1 % Final Comment: Interpretive Data Percent cell count reference ranges are not reported, since discordance with absolute values may lead to misinterpretation of CBC data. Current Interpretive Data was last revised on 2022. Testing performed by: [facility] [address], Medical Office [facility] [address], [place] [address] Monocyte pct 04/22/2024 6.6 % Final Comment: Interpretive Data Percent cell count reference ranges are not reported, since discordance with absolute values may lead to misinterpretation of CBC data. Current Interpretive Data was last revised on 2022. Testing performed by: [facility] [address], Medical Office [address], [place] [address] Eosinophil pct 04/22/2024 2.3 % Final Comment: Interpretive Data Percent cell count reference ranges are not reported, since discordance with absolute values may lead to misinterpretation of CBC data. Current Interpretive Data was last revised on 2022. Testing performed by: [facility] [address], Medical Office [address], [place] [address] Basophil pct 04/22/2024 0.7 % Final Comment: Interpretive Data Percent cell count reference ranges are not reported, since discordance with absolute values may lead to misinterpretation of CBC data. Current Interpretive Data was last revised on 2022. Testing performed by: [facility] [address], Medical Office [address], [place] [address] eGFR 04/22/2024 43 (L) >=60 mL/min/1.73 m2 [...] was last reviewed 2021. Testing performed by: [facility], [address], [place], [address] Above results reviewed with patient. ASSESSMENT: This patient presents with what appears to be a clinical T2b melanoma of the shoulder with clinically negative lymph nodes. Unfortunately lymphoscintigraphy was technically unable to identify any lymph nodes in the axilla. Had there been a positive lymph node, she would have been a candidate for adjuvant therapy presumably immunotherapy given her other medical illnesses. In the absence of that data we will have to make an educated decision as to how best to proceed. I would not subject her to an axillary dissection to determine this information. PLAN: At this point, there is already an axillary ultrasound scheduled to to evaluate her nodes and to determine whether there is a more predominant node compared to others that might be evaluated. In addition, I will try and get a PET scan authorized to look for any areas of activity in the axilla that would perhaps way our decision in 1 direction or another. She will see me in follow-up after both the PET scan and ultrasound are performed. RESUSCITATION DIRECTIVES/HOSPICE CARE; Full Support Yaniv Callaway MD, FACP, FASCO data analysis manager [facility] Division of Oncology [facility] Portions of this note [...] documented as of this encounter Results * PET/CT FDG Skull to Thigh (04/28/2024 [...] AM T: ??04/29/2024 10:07 AM Report ID: [id number] Reading Location: ??[id number] Procedure Note Cr Alexander Jr., MD - [...] Electronically signed by Cr Alexander M.D. 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) Unspecified hypertensive heart and kidney disease with heart failure and with chronic kidney disease stage I through stage IV, or unspecified Melanoma of right upper arm (HCC) documented in this encounter Orders Outpatient Referral Count Last Ordered Date Fir st Ordered Date AMB REFERRAL TO ONCOLOGY 1 04/22/2024 Appointment Requests Count Last Ordered Date Fi rst Ordered Date ONCBCN CLINIC APPOINTMENT REQUEST 1 024 documented in this encounter Care Teams Assistant Superintendent For Curriculum Relationship Specialty Start Date End Date Lalito England MD [address] [place] [address] PCP - General 08/03/19 documented as of this encounter
--- OUTSIDE RECORDS SUMMARY | 2024-07-11 22:33 | XMS_ITS | Encounter Summary ---
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 electric, gas, oil, or water company threatened [...] often do you attend chur ch or nondenominational services? Never 01/19/2024 Do you belong to any clubs o r organizations such as gnosticist groups, unions, fraternal or athletic groups, or [...] place to sleep or slept in a usp (including now)? No 07/16/2022 Housing Stability Vital Sign Answer Albaro e Recorded In the last 12 months, was t here a time when you were not able to pay the mortgage or rent on time? No 01/19/2024 In the past 12 months, how m any times have you moved where you were living? 0 01/19/2024 At any time in the past 12 m [place], were you homeless or living in a usp (including now)? No 01/19/2024 Personal Safety Answer Date Recorded Have you ever been in or are you currently in a harmful physical or emotional relationship or is someone making you feel afraid or unsafe? Denies 04/20/2024 Comments No Sex and Gender Information Value Date Recorded Sex Assigned at Not on file Legal Sex Female 11:52 PM [employer] Gender Identity Not on file Sexual Orientation Not on file documented as of this encounter Miscellaneous Notes * Addendum Note - Ralf Davey CLT - 04/22/2024 1:00 PM CDTAddended by: RALF DAVEY on: 05/10/2024 11:33 AM Modules accepted: Orders documented in this encounter Plan of Treatment Scheduled Orders Name Type Priority Associated Diagnoses Orde r Schedule CBC with auto differential Lab Routine 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 (HCC) Expected: 04/25/2024, Expires: 04/22/2025 documented as of this encounter Procedures Procedure Name Priority Date/Time Associated Diagnosis Comments EGFR Routine 04/22/2024 12:55 PM CDT 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 (HCC) DIFFERENTIAL AUTO Routine 04/22/2024 12: 55 PM CDT 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 (HCC) CBC WITH AUTO DIFFERENTIAL Routine 04/22/2024 12:55 PM CDT 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 (HCC) COMPREHENSIVE METABOLIC PANEL Routine 04/22/2024 12:55 PM CDT 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 (HCC) documented in this encounter Results * (ABNORMAL) eGFR (04/22/2024 12:55 PM CDT) [...] was last reviewed 2021. Testing performed by: [facility], [address] [facility], [place], [address] Blood 04/22/2024 12:5 5 PM CDT 04/22/2024 1:17 PM CDT us Yaniv Callaway MD LAB BLOOD ORDERABLES Jessica l Result ANN CUADRA ([place]) 1 [facility] Department [place] [address] * Differential, auto (04/22/2024 12:55 PM CDT) Neutrophil abs 6.1 1.5 - 6.5 K/cumm Comment:Testing performed by : [facility] [place], [address] [facility], Medical Office [address], [place] [address] Imm gran abs 0.0 0.0 - 0.1 K/cumm ANN [facility]RA ([place]) Comment:Testing performed by : [facility] [address], Medical Office [facility] [address], [place] [address] Lymphocyte abs 1.8 0.8 - 3.3 K/cumm [facility] ([place]) Comment:Testing performed by : [facility] [address], Medical Office [facility] [address], [place] [address] Monocyte abs 0.6 0.2 - 0.8 K/cumm [facility] ([place]) Comment:Testing performed by : [facility] [address], Medical Office [facility] [address], [place] [address] Eosinophil abs 0.2 0.0 - 0.5 K/cumm [facility] ([place]) Comment:Testing performed by : [facility] [address], Medical Office [facility] B [facility] [address], [place] [address] Basophil abs 0.1 0.0 - 0.1 K/cumm [facility] ([place]) Comment:Testing performed by : [facility] [address], Medical Office [facility] [address], [place] [address] Neutrophil pct 70.2 % [facility] ([place]) Comment: Interpretive Data Percent cell count reference ranges are not reported, since discordance with absolute values may lead to misinterpretation of CBC data. Current Interpretive Data was last revised on 2022. Testing performed by: [facility] [address], Medical Office [facility] [address], [place] [address] Imm gran pct 0.1 % [facility] ([place]) Comment: Interpretive Data Percent cell count reference ranges are not reported, since discordance with absolute values may lead to misinterpretation of CBC data. Current Interpretive Data was last revised on 2022. Testing performed by: [facility] [address], Medical Office [facility] [address], [place] [address] Lymphocyte pct 20.1 % [facility] ([place]) Comment: Interpretive Data Percent cell count reference ranges are not reported, since discordance with absolute values may lead to misinterpretation of CBC data. Current Interpretive Data was last revised on 2022. Testing performed by: [facility] [address], Medical Office [facility] B [facility] [address], [place] [address] Monocyte pct 6.6 % ANN CU[facility]RA ([place]) Comment: Interpretive Data Percent cell count reference ranges are not reported, since discordance with absolute values may lead to misinterpretation of CBC data. Current Interpretive Data was last revised on 2022. Testing performed by: [facility] [address], Medical Office [facility] B [facility] [address], [place] [address] Eosinophil pct 2.3 % ANDRIA CU[facility] ([place]) Comment: Interpretive Data Percent cell count reference ranges are not reported, since discordance with absolute values may lead to misinterpretation of CBC data. Current Interpretive Data was last revised on 2022. Testing performed by: [facility] [address], Medical Office [facility] [address], [place] [address] Basophil pct 0.7 % ANN [facility]RA ([place]) Comment: Interpretive Data Percent cell count reference ranges are not reported, since discordance with absolute values may lead to misinterpretation of CBC data. Current Interpretive Data was last revised on 2022. Testing performed by: [facility] [address], Medical Office [facility] [address], [place] [address] Blood 04/22/2024 12:5 5 PM CDT 04/22/2024 1:05 PM CDT us Yaniv Callaway MD LAB BLOOD ORDERABLES Jessica rodolfo Result [facility] ([place]) 1 [facility] Department [place] [address] * (ABNORMAL) CBC with auto differential (04/22/2024 12:55 PM CDT) WBC 8.7 3.8 - 9.9 K/cumm Comment:Testing performed by : [facility] [address], Medical Office [facility] B [facility] [address], [place] [address] Hgb 10.1(L) 11.9 - 15.5 g/dL ANN CUADRA ([place]) Comment:Testing performed by : [facility] [address], Medical Office [facility] [address], [place] [address] Hct 31.3(L) 35.6 - 45.5 % [facility] ([place]) Comment:Testing performed by : [facility] [address], Medical Office [facility] [address], [place] [address] Plt 184 150 - 400 K/cumm [facility] ([place]) Comment:Testing performed by : [facility] [address], Medical Office [facility] [address] [facility] [address], [place] [address] MPV 9.5 9.1 - 12.3 fL [facility] ([place]) Comment:Testing performed by : [facility] [address], Medical Office [facility] B [facility] [address], [place] [address] RBC 3.53(L) 3.90 - 5.20 M/cumm [facility] ([place]) Comment:Testing performed by : [facility] [address], Medical Office [facility] [address], [place] [address] MCV 88.7 81.3 - 96.4 fL [facility] ([place]) Comment:Testing performed by : [facility] [address], Medical Office [facility] [address] [facility] [address], [place] [address] MCH 28.6 27.1 - 33.3 pg [facility] ([place]) Comment:Testing performed by : [facility] [address], Medical Office [facility] [address], [place] [address] MCHC 32.3 32.3 - 35.7 g/dL [facility] ([place]) Comment:Testing performed by : [facility] [address], Medical Office [facility] [address] [facility] [address], [place] [address] RDW CV 13.4 11.1 - 14.9 % [facility] ([place]) Comment:Testing performed by : [facility] [address], Medical Office [facility] [address], [place] [address] RDW SD 43.6 35.7 - 48.1 fL [facility] ([place]) Comment:Testing performed by : [facility] [address], Medical Office [facility] [address], [place] [address] NRBC abs Not Measured 0.00 - 0.01 K/cumm [facility] ([place]) Comment:Testing performed by : [facility] [place], [address], Medical Office [address], [place] [address] Blood 04/22/2024 12:5 5 PM CDT 04/22/2024 1:05 PM CDT us Yaniv Callaway MD LAB BLOOD ORDERABLES Jessica l Result [facility] ([place]) 1 [facility] Department [place] [address] * (ABNORMAL) Comprehensive metabolic panel (04/22/2024 12:55 PM CDT) Sodium 141 135 - 145 mmol/L Comment:Testing performed by : [facility], [place], [address] Potassium, pl 3.6 3.3 - 4.9 mmol/L [facility] ([place]) Comment:Testing performed by : [place], [address] Chloride 104 97 - 110 mmol/L [facility] ([place]) Comment:Testing performed by : [facility], [place], [address] CO2 26 22 - 32 mmol/L [facility] ([place]) Comment:Testing performed by : [facility], [place], [address] Anion gap 11 2 - 15 mmol/L [facility] ([place]) Comment:Testing performed by : [facility], [place], [address] BUN 16 6 - 25 mg/dL [facility] ([place]) Comment:Testing performed by : [facility], [place], [address] Creatinine 1.30(H) 0.60 - 1.10 mg/dL [facility] ([place]) Comment:Testing performed by : [place], [address] Glucose 98 70 - 199 mg/dL [facility] ([place]) Comment: Interpretive Data Fasting glucose >/= 126 [...] classification and Diagnosis of Diabetes Diabetes Care 202; 46: S19-S40. Current interpretive data was last revised 2022. Testing performed by: [place], [address] Calcium 9.2 8.5 - 10.3 mg/dL [facility] ([place]) Comment:Testing performed by : [place], [address] Bilirubin, total 0.3 0.1 - 1.2 mg/dL [facility] ([place]) Comment:Testing performed by : [facility], [place], [address] Protein, pl 6.8 6.5 - 8.5 g/dL [facility] ([place]) Comment:Testing performed by : [facility], [place], [address] Albumin 3.7 3.5 - 5.0 g/dL [facility] ([place]) Comment:Testing performed by : [facility], [place], [address] Alk phos 70 40 - 130 Units/L [facility] ([place]) Comment:Testing performed by : [facility], [place], [address] ALT 9 7 - 45 Units/L [facility] ([place]) Comment:Testing performed by : [place], [address] AST 13 10 - 45 Units/L [facility] ([place]) Comment:Testing performed by : [facility], [place], [address] Blood 04/22/2024 12:5 5 PM CDT 04/22/2024 1:17 PM CDT us Yaniv Callaway MD LAB BLOOD ORDERABLES Jessica reynolds Result [facility] 1 [facility] Department [place] [address] documented in this encounter Visit Diagnoses Diagnosis 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 (HCC)- Primary documented in this encounter Care Teams Remotely Operated Vehicle Relationship Specialty Start Date End Date Lalito England MD [address] [place] [address] PCP - General 08/03/19 documented as of this encounter
--- OUTSIDE RECORDS SUMMARY | 2024-07-11 22:33 | XMS_ITS | Encounter Summary ---
Author Organization [facility] Healthcare Address [address] [place] [address] Care Team Providers Care Plan Rep Name Role Phone Lalito England MD Primary Care Provider [phone] Reason for Visit * Auth/Cert (Routine) Specialty Diagnoses / Procedures Referred By Contac t Referred To Contact Diagnoses 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) [C43.61] Procedures DC INTRAOP SENTINEL LYMPH NODE ID W/DYE INJECTION RIGHT SENTINEL LYMPH NODE BIOPSY (PRE OP LYMPHOSCINTIGRAPHY (GENERAL, 1% LIDO WITH EPI; NEOPROTIN) Referral ID Status Reason Start Date Expiration Date Visits Re quested Visits Authorized [id number] 1 1 Encounter Details Date Type Department Care Team (Late st Contact Info) Description 04/20/2024 6:47 AM CDT - 04/20/2024 1:00 PM CDT Hospital Encounter [facility] Operating Room [address] [place] [address] Mark Pickett MD [address] [id number] [place] [address] Discharge Disposition: Discharge to home or self care Social History Tobacco Use Types Packs/Day Years Used Date Smoking Tobacco: Never Passive Smoke Exposure: Past Smokeless Tobacco: Never Alcohol Use Standard Drinks/Week Comments Yes 0 (1 standard drink = 0.6 oz pur e alcohol) occasional [facility] Utilities Answer Date Recorded In the past 12 months has [employer] gas, oil, or water company threatened to [...] often do you attend chur ch or spiritism services? Never 01/19/2024 Do you [...] time in the past 12 m [facility], were you homeless or living in [...] on file Legal Sex Female 11:52 PM ENROBER Gender Identity Not on file Sexual Orientation Not on file documented as of this encounter Last Filed Vital Signs Vital Sign Reading Time Taken Comments Blood Pressure 167/64 04/20/2024 12:55 PM CDT Pulse 65 04/20/2024 12:55 PM CDT Temperature 36 ??C (96.8 ??F) 04/20/2024 12:55 PM CDT Respiratory Rate 16 04/20/2024 12:55 PM CDT Oxygen Saturation 100% 04/20/2024 12:55 PM CDT Inhaled Oxygen Concentration - - Weight 99.1 kg (218 lb 7.6 oz) 04/20/2024 7:33 A M CDT Height 167.6 cm (5' 6 ) 04/20/2024 7:33 AM CDT Body Mass Index 35.26 04/20/2024 7:33 AM CDT documented in this encounter Discharge Instructions * Attachments The following attachments cannot be sent through Care Everywhere. * General Anesthesia (Discharge Care) (Greek) * Cephalexin (By mouth) (Greek) * Ondansetron (By mouth, Into the mouth) (Greek) documented in this encounter Medications at Time [...] 1 tablet (81 mg total) by mouth therapeutic recreation director before breakfast Do not restart until 2 [...] polyneuropathy, without long-term current use of insulin ([facility]) Inject 15 Units under the [...] polyneuropathy, without long-term current use of insulin ([facility]) TAKE 1 TABLET BY MOUTH AT BEDTIME [...] 4 05/17/20 24 Nyamyc powder Apply topically therapeutic recreation director before breakfast 4 05/26/20 24 omeprazole (PriLOSEC) 20 mg capsule TAKE 1 CAPSUEL BY MOUTH TWICE DAILY FOR GERD 180 capsule 5 3 06/28/20 24 documented as of this encounter Ordered Prescriptions Prescription Sig Dispense Quantity Refills Last Filled Start Date End Date ondansetron ODT (ZOFRAN-ODT) 8 mg disintegrating tabletIndications:Pr evention of Post-Operative Nausea and Vomiting Take 1 tablet (8 mg total) by mouth every 8 (eight) hours as needed for nausea or vomiting 12 tablet 1 04/20/2024 cephalexin (KEFLEX) 500 mg capsuleIndications:S kin/Soft Tissue Infection Take 1 capsule (500 mg total) by mouth 2 (two) times a day for 10 days 20 capsule 04/20/2024 4 documented in this encounter Discharge Disposition Disposition Code Departure Means Destination Comment s Discharge to home or self care documented in this encounter Progress Notes * Mark Pickett MD - 04/20/2024 11:17 AM CDT Pre-op lymphoscintigraphy did not map despite 2.5 hours transit time. Discussed findings with patient. Surgery will be canceled for today. Will refer her to Oncology for further management of melanoma. Discussed obtaining baseline right axillary ultrasound with likely surveillance at 3 month intervals. All questions answered. Patient verbalizes understanding and agreement with treatment plan. Mark Pickett MD 04/20/24 11:21 AM documented in this encounter H&P Notes * Mark Pickett MD - 04/20/2024 7:22 AM CDT Plastic and Reconstructive Surgery History and Physical Patient: Criss Ly : 1950 Date of Service: 10/27/2023 PCP: Lalito England MD Referring Provider: Lalito England MD Chief Complaint: New skin cancer History of Present Illness: Criss Ly is a 73 y.o. female who is referred for newly diagnosed melanoma. Present for 2 yrs Was noticed by an aide at assisted living. +itch +bleed Was eval by Dr. Covington - bx demonstrate melanoma No personal or family history of skin cancers. No tob +DM - A1c 8.9 Eliquis - DVT 2 yrs ago Of note, pt is wheelchair bound as her legs no longer work Interval History: Patient is now status post wide local excision melanoma right shoulder. Her path report demonstrated a Breslow thickness of 1.5 mm with ulceration. Recommend sentinel lymph node biopsy. 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 2007.; Comments: JALMA 07/25/2015 - HX OTHER MEDICAL Breast reduction 2008.; Comments: PAULETTE 07/25/2015 - HX OTHER MEDICAL left hip and leg surgery HX OTHER MEDICAL conversion of previous hip arthroplasty left hip; Comments: [facility] unit 02/06 - 02/17/16 for rehabilitation. Hyperlipidemia Hyperlipidemia Hypertension Hypertension Lumbar stenosis Osteoarthritis Osteoarthritis Osteoporosis Polyp of colon colon polyps Sarcoidosis Sarcoidosis Type 2 diabetes mellitus (HCC) Diabetes type 2 Type 2 diabetes mellitus with diabetic autonomic (poly)neuropathy (HCC) Type 2 diabetes mellitus with hyperglycemia (CMS/HCC) (HCC) Type II diabetes mellitus with stage 3 chronic kidney disease (HCC) Past Surgical History Past Surgical History: Procedure Laterality Date BACK SURGERY 08/14/2006 back surgery - microdecompression Lumbar - Dr. Srinath Tovar BACK SURGERY 03/25/2022 Dr. Robinson Block COLONOSCOPY 09/15/2013 LUMBAR SPINE SURGERY Surgery, lumbar spine NECK SURGERY 06/2008 4 discs replaced in neck, Dr. Srinath Tovar OTHER SURGICAL HISTORY Fall: Medical Management REDUCTION MAMMAPLASTY Bilateral 2008 TONSILLECTOMY tonsillectomy TOTAL HIP ARTHROPLASTY Left 02/05/2016 Dr. David Sykes, [facility] - conversion of previous hip arthroplasty left hip: Conversion of Arthroplasty left hip TOTAL KNEE ARTHROPLASTY Left 09/27/2005 Left TKA - Dr. Cole Beckham TOTAL KNEE ARTHROPLASTY Right 08/27/2001 Right TKA - Dr. Kuldeep Basurto Family History Family History Problem Relation Age of Onset Diabetes Mother Diabetes mellitus; Hypertension Mother Hypertension; Heart disease Father Heart disease; Heart failure Father CHF; Cause of : CHF Colon cancer Father Diabetes Brother Diabetes mellitus; Cancer Brother Lymphoma Brother Cancer -lymphoma; Stroke Brother Hypertension Brother Breast cancer Neg Hx Ovarian cancer Neg Hx Thyroid cancer Neg Hx Social History Social History Tobacco Use Smoking status: Never Smokeless tobacco: Never Substance and Sexual Activity Drug use: Never Sexual activity: Defer Alcohol Use: Not At Risk (10/08/2023) AUDIT-C Frequency of Alcohol Consumption: Never Average Number of Drinks: Patient does not drink Frequency of Binge Drinking: Never Allergies No Known Allergies Medications Ordered Prior to Encounter Current Outpatient Medications on File Prior to Visit Medication Sig Dispense Refill albuterol HFA (PROVENTIL HFA,VENTOLIN HFA,PROAIR HFA) 90 mcg/actuation inhaler Inhale 2 puffs every6 (six) hours as needed for wheezing 1 each 2 alendronate (FOSAMAX) 70 mg tablet TAKE 1 TABLET BY MOUTH EVERY FRIDAY FOR OSTEOPOROSIS 12 tablet 11 amoxicillin 500 mg capsule TAKE 4 CAPSULES BY MOUTH 1 HOUR PRIOR TO APPOINTMENT apixaban (ELIQUIS) 5 mg tablet Take 1 tablet (5 mg total) by mouth 2 (two) times a day aspirin 81 mg enteric coated tablet Take 1 tablet (81 mg total) by mouth daily biotin 10,000 mcg capsule Take 1 capsule (10,000 mcg total) by mouth daily blood glucose diagnostic (Contour Next Test Strips) strip TEST BLOOD SUGAR 3 TIMES A DAY AND WILL MONTIOR RESPONSE. DX: E11.22. 200 strip 1 blood-glucose meter (CONTOUR NEXT USB METER) misc test as directed 1 each 0 calcium carbonate-vitamin D3 500 mg(1,250mg) -400 unit tablet Take one by mouth two times per day 00 cloNIDine (CATAPRES) 0.1 mg tablet TAKE 1/2 TABLET BY MOUTH TWICE DAILY FOR HYPERTENSION 90 tablet 6 Eliquis 5 mg tablet TAKE 1 TABLET BY MOUTH TWICE DAILY 60 tablet 17 fluticasone propionate (FLONASE) 50 mcg/actuation nasal spray SPRAY 2 SPRAYS INTO EACH NOSTRIL EVERY DAY 48 mL 1 fluticasone propionate (Flovent Diskus) 100 mcg/actuation diskus inhaler Inhale 1 puff 2 (two) times a day Rinse mouth with water after use. Do not swallow. 60 each 3 furosemide (LASIX) 20 mg tablet Take 2 tablets (40 mg total) by mouth daily 180 tablet 4 gabapentin (NEURONTIN) 100 mg capsule TAKE 1 CAPSULE BY MOUTH 3 TIMES DAILY FOR NEUROPATHY 270 capsule 1 HYDROcodone-acetaminophen (NORCO) 5-325 mg per tablet Take 1 tablet by mouth every 6 (six) hours asneeded for pain 120 tablet 0 insulin aspart (NovoLOG) 100 unit/mL (3 mL) pen for injection Inject 15 Units under the skin 3 (three) times a day before meals 84 mL 2 insulin glargine (LANTUS) 100 unit/mL (3 mL) pen for injection Inject 20 Units under the skin daily30 mL 5 lancets (MICROLET LANCET) misc test by fingerstick route 3 times daily 300 each 3 melatonin 3 mg tablet,disintegrating Take 1 tablet by mouth nightly as needed montelukast (SINGULAIR) 10 mg tablet TAKE 1 TABLET BY MOUTH AT BEDTIME FOR ALLERGIES 90 tablet 5 mupirocin (BACTROBAN) 2 % ointment Apply to nares BID starting 5 days prior to surgery ending the day prior 22 g 0 naloxone (NARCAN) 4 mg/actuation spray,non-aerosol Administer 1 spray into affected nostril(s) as needed for opioid reversal 1 each 0 omeprazole (PriLOSEC) 20 mg capsule TAKE 1 CAPSUEL BY MOUTH TWICE DAILY FOR GERD 180 capsule 5 pen needle, diabetic (BD Ultra-Fine Mini Pen Needle) 31 gauge x 3/16 needle 1 needle as directed 300 each 3 polyethylene glycol (MIRALAX) 17 gram/dose powder Take 17 g by mouth daily 850 g 1 semaglutide (Ozempic) 2 mg/dose (8 mg/3 mL) pen injector injection INJECT 2 MG SUBCUTANEOUSLY ONE TIME PER WEEK 2 mL 3 simvastatin (ZOCOR) 40 mg tablet TAKE 1 TABLET BY MOUTH AT BEDTIME 90 tablet 5 No current facility-administered medications on file prior to visit. Review of Systems: A full review of system was obtained, reviewed, and scanned into the chart. Physical Exam: There were no vitals taken for this visit. Gen: NAD, A&O x3 Pulm: unlabored CV: regular rate Skin: [place] Type 3. A 2 x 1.8 cm pigmented lesion noted to right posterolateral shoulder; notfixed to deep tissue; well healed biopsy site; irregular border; mild to mod laxity to surrounding soft tissue; no axillary LAD Diagnostic Review: I personally reviewed the results of a shave biopsy specimen dated 09/26/23. This shows superficial spreading melanoma, Breslow 0.7 mm, no ulcerations. Assessment and Plan: 73 y.o. female who presents with a diagnosed melanoma the right posterolateral arm. Site marked. Consent signed and in chart. To OR for R SLNB. Mark Pickett MD 04/20/24 7:22 AM documented in this encounter Miscellaneous Notes * Perioperative Nursing Note - Susy Chavez RN - 04/20/2024 1:00 PM CDT Patient's 04/20/24 surgery was cancelled in pre op per Dr. Pickett due to radiology not being able to locate anything after two attempts. Dr. Pickett explained the next steps to follow with patient, stated he will contact her oncologist to explain why surgery was cancelled, and patient verbalized unde rstanding. Encouraged to go to ER if not feeling well. Dr. Mai stated it was ok if patient stayedto finish up her k-rider before patient leaves if she wanted to, and patient agreed she wanted to stay. VSS as charted. Left department via wheelchair with friend driving. * Pre-Procedure Instructions - Pita Toledo RN - 04/14/2024 10:08 AM CDT We are pleased that you and your doctor have chosen [facility] for your surgery. We hope that the following information will help make your visit a pleasant one. Surgery Date: 04/20/2024 Please be in the Ambulatory Surgery Department at 7:00 am. Before your surgery: Notify your doctor of ANY change in your health such as a cold, sore throat, fever, any infection or a change in the problem for which you are having your surgery. Follow any instructions given to you by your doctor or surgeon. Check with your doctor if you need to STOP taking: Aspirin (ordered by your doctor) Plavix Coumadin One week before surgery STOP taking: All herbal supplements Aspirin (not ordered by your doctor) Aleve, Advil, Motrin, Ibuprofen, or other similar medications (Tylenol is okay). 24 hours before your surgery: No smoking or alcoholic drinks. Night before your surgery: Do not eat or drink anything after midnight. Follow surgeon's instructions for anti-bacterial shower night before and morning of surgery. Day of surgery: Do not swallow any water when you brush your teeth. ONLY take these pills with a tiny sip of water. Pre-Surgery Instructions: Medication Instructions acetaminophen 500 mg capsule Hold the morning of surgery albuterol HFA (PROVENTIL HFA,VENTOLIN HFA,PROAIR HFA) 90 mcg/actuation inhaler Take as prescribed apixaban (ELIQUIS) 5 mg tablet Stop taking 3 days prior to surgery aspirin 81 mg enteric coated tablet Stop taking 7 days prior to surgery calcium carbonate-vitamin D3 500 mg(1,250mg) -400 unit tablet Stop taking 7 days prior to surgery cloNIDine (CATAPRES) 0.1 mg tablet Take morning of surgery docusate sodium (COLACE) 100 mg capsule Hold the morning of surgery finasteride (PROSCAR) 5 mg tablet Take morning of surgery fluticasone propionate (FLONASE) 50 mcg/actuation nasal spray Take morning of surgery fluticasone propionate (FLOVENT HFA) 110 mcg/actuation inhaler Take morning of surgery furosemide (LASIX) 20 mg tablet Hold the morning of surgery gabapentin (NEURONTIN) 100 mg capsule Take morning of surgery HYDROcodone-acetaminophen (NORCO) 5-325 mg per tablet Take as prescribed insulin aspart (NovoLOG) 100 unit/mL (3 mL) pen for injection Hold the morning of surgery, unless blood sugar is high then you can use your sliding scale losartan (COZAAR) 25 mg tablet Take morning of surgery montelukast (SINGULAIR) 10 mg tablet Take as prescribed Nyamyc powder Hold the morning of surgery omeprazole (PriLOSEC) 20 mg capsule Take morning of surgery polyethylene glycol (MIRALAX) 17 gram/dose powder Hold the morning of surgery semaglutide (Ozempic) 2 mg/dose (8 mg/3 mL) pen injector injection Stop taking 7 days prior to surgery SEMGLEE-yfgn 100 unit/mL (3 mL) pen for injection Give yourself 80% of your insulin the evening before your surgery, which is 16 units senna-docusate (PERICOLACE) 8.6-50 mg Hold the morning of surgery simvastatin (ZOCOR) 40 mg tablet Take as prescribed triamcinolone (KENALOG) 0.1 % cream Hold the morning of surgery blood glucose diagnostic (Contour Next Test Strips) strip blood-glucose meter (CONTOUR NEXT USB METER) misc lancets (MICROLET LANCET) misc naloxone (NARCAN) 4 mg/actuation spray,non-aerosol Take as prescribed pen needle, diabetic (BD Ultra-Fine Mini Pen Needle) 31 gauge x 3/16 needle Use no make-up, nail kiswahili, lotions, oils or powders on your skin. Wear comfortable clothes that will not be tight in the area of your surgery. Leave all valuables and jewelry (including all body piercing jewelry) at home. Please bring your a photo ID and insurance cards with you. Check in at the Registration Desk downstairs in the Ambulatory Surgery Department. You will come inthe main entrance and go down the fleming until you see the [employer] shop, there will be elevators to the right, take those down to [address]1. You will exist the elevators to the right and go down thehall and you will pass Medical Imaging on the left and we will be the next department on the right,you will see the sign above that says Ambulatory Surgery Department check-in. After your Outpatient Surgery: You must have a responsible adult to drive you home, you will not be allowed to drive or take a cabhome. We recommend you have someone stay with you for 24 hours after your surgery. What to bring if you are spending the night with us: Bring toiletry items such as: robe, slippers, toothbrush, toothpaste, brush or comb. Bring contact lens, hearing aids, glass cases and denture container if you use any of these items. The hospital will provide you with a gown. Questions or concerns: If you have any questions or concerns regarding your procedure, contact your surgeon as soon as possible. If you have questions regarding your Pre-Admission Testing, please call us. We can be reached at the number posted at the top of the page. * Perioperative Nursing Note - Pita Toledo RN - 04/13/2024 10:27 AM CDT Epic messaged Dr England in regards to the patients Eliquis and how long he wants it held prior to surgery. Dr England stated to hold 3 days thanks . Spoke with the patient and instructed her to hold Eliquis 3 days prior to surgery and she verbalized understanding. documented in this encounter Plan of Treatment Not on file documented as of this encounter Procedures Procedure Name Priority Date/Time Associated Diagnosis Comments POTASSIUM, WHOLE BLOOD STAT 04/20/2024 7:32 AM CDT POCT GLUCOSE DEVICE Routine 04/20/2024 7 :29 AM CDT documented in this encounter Results * (ABNORMAL) Potassium, whole blood (04/20/2024 7:32 [...] LAB BLOOD ORDERABLES Fin al Result [facility] ([place]) [address] [place] [address] [place] [address] * POCT glucose (04/20/2024 7:29 AM CDT) Glucose, POC 152 70 - 199 mg/dL Blood 04/20/2024 7:29 AM CDT 04/20/2024 7:29 AM CDT us Mark Pickett MD LAB POCT ORDERABLES - DEVICE Final Result [facility] ([place]) [address] [place] [address] [place] [address] documented in this encounter Visit Diagnoses Diagnosis 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 (HCC)- Primary documented in this encounter Admitting Diagnoses Diagnosis 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 (HCC) documented in this encounter Administered Medications Inactive Administered Medications - up to 3 most recent administrations Medication Order MAR Action Action Date Dose Rate Site acetaminophen (TYLENOL) tablet 1,000 mg 1,000 mg, oral, Once, On Fri04/20/24 at 0730, For 1 dose, Pre-Op, Indications: Pre-Emptive AnalgesiaIndications:Pre-Empti ve Analgesia Given 04/20/2024 7:15 AM CDT 1,000 mg Carrier Fluids for Secondary Infusion - 0.9% Sodium Chloride 30 mL, intravenous, As needed, For priming tubing and/or flushing, Starting on Fri04/20/24 at 0653, Pre-Op, 0-250 ml/hr to flush line after IV infusions when no maintenance IV ordered. Infuse 30mL at the same rate as the secondary infusion. Run as primary IV, not intended for KVO. gabapentin (NEURONTIN) capsule 300 mg 300 mg, oral, Once, On Fri04/20/24 at 0730, For 1 dose, Pre-Op, Indications: Pre-Emptive AnalgesiaIndications:Pre-Empti ve Analgesia Given 04/20/2024 7:15 AM CDT 300 mg lidocaine-prilocaine (EMLA) 2.5-2.5 % cream topical, Once, On Fri04/20/24 at 0730, For 1 dose, Pre-Op, Apply to affected area: nipples, Indications: Administration of Local AnesthesiaIndications:Administ ration of Local Anesthesia Given 04/20/2024 7:14 AM CDT potassium chloride 20 mEq/260 mL in sodium chloride 0.9% (premix) 20 mEq 20 mEq, intravenous, Administer over 2 Hours, Once, On Fri04/20/24 at 0845, For 1 dose, Pre-Op, Indications: hypokalemiaIndications:hypokal emia New Bag 04/20/2024 10:22 AM CDT 20 mEq sodium chloride 0.9% flush 0.5-20 mL 0.5-20 mL, intra-catheter, As needed, line care, Starting on Fri04/20/24 at 0653, Pre-Op, Flush volume based on line type and size. Flush before and after each use. sodium chloride 0.9% infusion 30 mL/hr, intravenous, Continuous, Starting on Fri04/20/24 at 0730, Pre-Op New Bag 04/20/2024 7:15 AM CDT 30 mL/hr 30 mL/hr documented in this encounter Discontinued Medications Medication Sig Discontinue Reason Start Date End Da te methocarbamoL (ROBAXIN) 500 mg tablet Take 1 tablet (500 mg total) by mouth 3 (three) times a day Therapy completed 12/04/2023 04/14/2024 calcium carbonate-vitamin D3 500 mg(1,250mg) -400 unit tablet Take one by mouth two times per day Duplicate order 08/10/2007 04/14/2024 gabapentin (NEURONTIN) 100 mg capsule Take 1 capsule (100 mg total) by mouth 4 (four) times a day Duplicate order 12/29/2023 04/14/2024 polyethylene glycol (MIRALAX) 17 gram/dose powder Take 17 g by mouth daily Duplicate order 07/24/2022 04/14/2024 documented as of this encounter Historical Medications * This list may reflect changes made after this encounter. polyethylene glycol (MIRALAX) 17 gram packetIndication s:constipation Take 1 packet (17 g total) by mouth as needed for constipation gabapentin (NEURONTIN) 100 mg capsule Take 1 capsule (100 mg total) by mouth 4 (four) times a day Patient takes 1 capsule TID and then 2 capsules at bedtime. calcium carbonate-vitami n D3 1,500 mg (600 mg elemental)-500 unit capsule Take by mouth fluticasone propionate (FLONASE) 50 mcg/actuation nasal spray Administer 2 sprays into each nostril daily 02/26/2024 added in this encounter Active and Recently Administered Medications Times are shown in CDT. Scheduled Medication Order 04/18/2024 04/19/2024 04/20/2024 acetaminophen (TYLENOL) tablet 1,000 mg (COMPLETED) 1,000 mg, oral, Once, On Fri04/20/24 at 0730, For 1 dose, Pre-Op, Indications: Pre-Emptive Analgesia 0715 (Given - Provid er: Susy Chavez RN) ceFAZolin (ANCEF) 2,000 mg/20 mL in sterile water (premix) 2,000 mg 2,000 mg, intravenous, at 400 mL/hr, Administer over 3 Minutes, Once, On Fri04/20/24 at 0730, For 1 dose, Pre-Op, Administer within 60 minutes of incision., Indications: Prophylaxis, Surgical 0730 (Due) celecoxib (CeleBREX) capsule 200 mg 200 mg, oral, Once, On Fri04/20/24 at 0730, For 1 dose, Pre-Op, Hold if history of kidney disease or gastric ulcer., Indications: Pre-Emptive Analgesia, On hold since Fri04/20/2024 at 0700 until manually unheld 0700 (Held by Provid er - Provider: Mark Pickett MD - Reason: Other - Comment: Hold for kidney disease)0730 (Dose Auto Held - Provider: Mark Pickett MD)1748 (Unheld by Provider - Provider: Automatic Discharge Provider) gabapentin (NEURONTIN) capsule 300 mg (COMPLETED) 300 mg, oral, Once, On Fri04/20/24 at 0730, For 1 dose, Pre-Op, Indications: Pre-Emptive Analgesia 0715 (Given - Provid er: Susy Chavez RN) lidocaine-prilocaine (EMLA) 2.5-2.5 % cream (COMPLETED) topical, Once, On Fri04/20/24 at 0730, For 1 dose, Pre-Op, Apply to affected area: nipples, Indications: Administration of Local Anesthesia 0714 (Given - Provid er: Susy Chavez RN) potassium chloride 20 mEq/260 mL in sodium chloride 0.9% (premix) 20 mEq (COMPLETED) 20 mEq, intravenous, Administer over 2 Hours, Once, On Fri04/20/24 at 0845, For 1 dose, Pre-Op, Indications: hypokalemia 1022 (New Bag - Prov ider: Susy Chavez RN) Continuous Medication Order 04/18/2024 04/19/2024 04/20/2024 sodium chloride 0.9% infusion 30 mL/hr, intravenous, Continuous, Starting on Fri04/20/24 at 0730, Pre-Op 0715 (New Bag - Prov ider: Susy Chavez RN)1748 (Due: Stopped) PRN Medication Order 04/18/2024 04/19/2024 04/20/2024 Carrier Fluids for Secondary Infusion - 0.9% Sodium Chloride 30 mL, intravenous, As needed, For priming tubing and/or flushing, Starting on Fri04/20/24 at 0653, Pre-Op, 0-250 ml/hr to flush line after IV infusions when no maintenance IV ordered. Infuse 30mL at the same rate as the secondary infusion. Run as primary IV, not intended for KVO. sodium chloride 0.9% flush 0.5-20 mL 0.5-20 mL, intra-catheter, As needed, line care, Starting on Fri04/20/24 at 0653, Pre-Op, Flush volume based on line type and size. Flush before and after each use. documented in this encounter Orders Medications Ordered That Cash ht Not Have Been Administered Count Last Ordered Date First Ordered Date Carrier Fluids for Secondary Infusion - 0.9% Sodium Chloride 1 04/20/2024 ceFAZolin (ANCEF) 2,000 mg/2 0 mL in sterile water (premix) 2,000 mg 1 04/20/2024 celecoxib (CeleBREX) capsule 200 mg 1 04/20 sodium chloride 0.9% flush 0.5-20 mL 1 02/2024 documented in this encounter Care Teams Plan Rep Relationship Specialty Start Date End Date Lalito England MD [address] [place] [address] PCP - General 08/03/19 documented as of this encounter
--- OUTSIDE RECORDS SUMMARY | 2024-07-11 22:33 | XMS_ITS | Encounter Summary ---
Author Organization [facility] Address [address] [facility] [address] [place] [address] Phone Care Team Providers Care Cinder Man Name Role Phone Lalito England MD Primary Care Provider [phone] [phone] Reason for Referral * Consultation (Routine) - Authorized Specialty Diagnoses / Procedures Referred By Giuliana boone Referred To Contact Oncology Diagnoses Melanoma of right upper arm (HCC) Kashif Pickett MD [address] [facility] [phone] [place] [address] Phone: tel: fax: Nicolás Hemphill MD [address] [place] [address] [address] Phone: tel: fax: Referral ID Status Reason Start Date Expiration Date Visits Requested Visits Authorized [id number] Authorized Specialty Services Required 07/13/2024 12 12 Question Answer Please select the performing region: [facility] [[id number]] Please select the performing department: [facility] IM ONC [facility] [id number] [[id number]] To provider: NICOLÁS HEMPHILL [[id number]] # of visits: 1 Comments management of melanoma * Diagnostic Imaging (Routine) - Closed Specialty Diagnoses / Procedures Referred By Contayah t Referred To Contact Diagnoses Melanoma of right upper arm (HCC) Procedures US Axillary Right Non-Breast Kashif Pickett MD [address] [phone] [place] [address] Phone: tel: fax: [address] [phone] Referral ID Status Reason Start Date Expiration Date Visits Re quested Visits Authorized [id number] Closed 04/20/2024 05/20/2025 1 1 Encounter Details Date Type Department Care Team (Late st Contact Info) Description 04/20/2024 Orders Only [facility] Physicians [facility] Surgery [address] [facility] [address] [place] [address] [place] Purcell RN Melanoma of right upper arm (HCC) (Primary Dx) Social History Tobacco Use Types Packs/Day Years Used Date Smoking Tobacco: Never Passive Smoke Exposure: Past Smokeless Tobacco: Never Alcohol Use Standard Drinks/Week Comments Yes 0 (1 standard drink = 0.6 oz pur e alcohol) occasional C Utilities Answer Date Recorded In the past 12 months has [employer] electric, gas, oil, or water company threatened [...] How often do you attend chur or zoroastrianism services? Never 01/19/2024 Do you belong to any clubs o r organizations such as jehovah's witness groups, unions, fraternal or athletic groups, or [...] place to sleep or slept in a prison (including now)? No 07/16/2022 Housing Stability Vital [...] time in the past [address] [facility], were you homeless or living in a prison (including now)? No 01/19/2024 Personal Safety Answer Date Recorded Have you ever been in or are you currently in a harmful physical or emotional relationship or is someone making you feel afraid or unsafe? Denies 04/20/2024 Comments No Sex and Gender Information Value Date Recorded Sex Assigned at Not on file Legal Sex Female 11:52 PM LOG CUT OFF SAWYER Gender Identity Not on file Sexual Orientation Not on file documented as of this encounter Plan of Treatment Scheduled Referrals Name Type Priority Associated Diagnoses Order Schedule Ambulatory referral to Oncology Outpatient Referral Routine Melanoma of right upper arm (HCC) 1 Occurrences starting 04/20/2024 until 04/20/2025 documented as of this encounter Results * US Axillary Right Non-Breast (06/01/2024 3:06 PM LOG CUT OFF SAWYER) Anatomical Region Laterality Modality Upper Extremities Right Ultrasound 06/01/2024 3:26 PM LOG CUT OFF SAWYER Impressions 06/01/2024 3:26 PM LOG CUT OFF SAWYER Unremarkable right axillary ultrasound with no evidence of lymphadenopathy. Electronically signed by: Salomon Max M.D. Narrative 06/01/2024 3:26 PM LOG CUT OFF SAWYER EXAMINATION: US AXILLARY NON-BREAST RIGHT ORDERING HEALTHCARE [...] Melanoma of right upper arm (HCC)- Primary Melanoma of right upper arm (HCC) documented in this encounter Care Teams Cinder Man Relationship Specialty Start Date End Date Lalito England MD [address] [place] [address] PCP - General 08/03/19 documented as of this encounter
--- OUTSIDE RECORDS SUMMARY | 2024-07-11 22:33 | XMS_ITS | Encounter Summary ---
Author Organization [facility] Address [address] [place] [address] Phone Care Team Providers Care Straddle Truck Operator Name Role Phone Lalito England MD Primary Care Provider [phone] [phone] Encounter Details Date Type Department Care Team (Late st Contact Info) Description 04/27/2024 Telephone [facility] Neurosurgery [address] [facility] [address] [place] [address] Anson Jeffries, MARKOS [address] [place] [address] Social History Tobacco Use Types Packs/Day Years Used Date Smoking Tobacco: Never Passive Smoke Exposure: Past Smokeless Tobacco: Never Alcohol Use Standard Drinks/Week Comments Yes 0 (1 standard drink = 0.6 oz pur e alcohol) occasional C Utilities Answer Date Recorded In the past 12 months has [employer], gas, oil, or water [employer] threatened to shut off services in your [...] week 01/19/2024 How often do you attend [facility] or pentecostalism services? Never 01/19/2024 Do you belong to [...] place to sleep or slept in a half-way (including now)? No 07/16/2022 Housing Stability Vital [...] in the past 12 m [facility], were you homeless or living in a half-way (including now)? No 01/19/2024 Personal Safety Answer Date Recorded Have you ever been in or are you currently in a harmful physical or emotional relationship or is someone making you feel afraid or unsafe? Denies 04/20/2024 Comments No Sex and Gender Information Value Date Recorded Sex Assigned at Not on file Legal Sex Female 11:52 PM WARRANTY COORDINATOR Gender Identity Not on file Sexual Orientation Not on file documented as of this encounter Miscellaneous Notes * Telephone Encounter - Brennan Castillo MD - 06/29/2024 1:53 PM CST Agreed thank you ANTY COORDINATOR * Telephone Encounter - Sola Banks CMA - 06/21/2024 8:10 AM CST Per KO email on 06/18: it looks like her BMI is down to 34 in the chart, let's get her DEXA scan and follow up visit after -Dexa already scheduled for 06/24 - Appt w CM pending after results of DEXA Scan. ANTY COORDINATOR ANTY COORDINATOR * Telephone Encounter - Sola Banks CMA - 04/29/2024 2:42 PM CDT Patient is aware of appt details via phone call. Appt w CM pending after results of DEXA Scan. Recall set to f/u on Dexa Results. * Telephone Encounter - Sola Banks CMA - 04/27/2024 10:41 AM CDT Email Ref from DENY; Patient is to complete MRI/CT Thoracolumbar with DEXA Scan. Appt w CM pending after results of DEXA Scan. Recall set to f/u on Dexa Results. documented in this encounter Plan of Treatment Not on file documented as of this encounter Visit Diagnoses Not on filedocumented in this encounter Care Teams Straddle Truck Operator Relationship Specialty Start Date End Date Lalito England MD [address] [place] [address] PCP - General 08/03/19 documented as of this encounter
--- OUTSIDE RECORDS SUMMARY | 2024-07-11 22:33 | XMS_ITS | Encounter Summary ---
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) [C43.61] Procedures TX INTRAOP SENTINEL LYMPH NODE ID W/DYE INJECTION RIGHT SENTINEL LYMPH NODE BIOPSY (PRE OP LYMPHOSCINTIGRAPHY (GENERAL, 1% LIDO WITH EPI; NEOPROTIN) Referral ID Status Reason Start Date Expiration Date Visits Re quested Visits Authorized [id number] 1 1 Encounter Details Date Type Department Care Team (Latest Contact Info) Description 04/20/2024 6:49 AM CDT - 04/20/2024 11:59 PM CDT Hospital Encounter [facility] [address] [place] [address] Discharge Disposition: Discharge to home or self care Social History Tobacco Use Types Packs/Day Years Used Date Smoking Tobacco: Never Passive Smoke Exposure: Past Smokeless Tobacco: Never Alcohol Use Standard Drinks/Week Comments Yes 0 (1 standard drink = 0.6 oz pur e alcohol) occasional [facility] Utilities Answer Date Recorded In the past [...] often do you attend chur ch or alevism services? Never 01/19/2024 Do you belong to any clubs o r organizations such as adventism groups, unions, fraternal or athletic groups, or [...] any time in the past 12 m [facility], were you homeless or living [...] on file Legal Sex Female 11:52 PM PHLEBOTOMY LAB ASSISTANT Gender Identity Not on file Sexual Orientation [...] 1 tablet (81 mg total) by mouth manager assessment before breakfast Do not restart until 2 [...] polyneuropathy, without long-term current use of insulin ([facility]) Inject 15 Units under the [...] 4 05/17/20 24 Nyamyc powder Apply topically manager assessment before breakfast 4 05/26/20 24 omeprazole (PriLOSEC) [...] upper arm (HCC) documented in this encounter Visit Diagnoses Not on filedocumented in this encounter Administered Medications Inactive Administered Medications - up to 3 most recent administrations Medication Order MAR Action Action Date Dose Rate Site Tc-99m tilmanocept (lymphoseek) 0.5 mci injection 0.503 millicurie 0.503 millicurie (503 microcurie), intradermal, Once in imaging, radiopharmaceutical, Starting on Fri04/20/24 at 0830, For 1 dose Given 04/20/2024 8:31 AM CDT 0.503 millicuries documented in this encounter Orders Medications Ordered That Cash ht Not Have Been Administered Count Last Ordered Date First Ordered Date Tc-99m tilmanocept (lymphose ek) 0.5 mci injection 0.503 millicurie 1 04/20/2024 documented in this encounter Care Teams Heel Scorer Relationship Specialty Start Date End Date Lalito England MD [address] [place] [address] PCP - General 08/03/19 documented as of this encounter
--- OUTSIDE RECORDS SUMMARY | 2024-07-11 22:33 | XMS_ITS | Encounter Summary ---
Author Organization [facility] Address [address] [facility] [address] [place] [address] Phone Care Team Providers Care Sports Agent Name Role Phone Lalito England MD Primary Care Provider [phone] Reason for Visit * Consultation (Routine) - Authorized Specialty Diagnoses / Procedures Referred By Giuliana t Referred To Contact Neurosurgery Diagnoses Degenerative cervical spinal stenosis Lalito England MD [address] [place] [address] Phone: tel: fax: Brennan Castillo MD [address] [place] [address] Phone: tel: fax: Referral ID Status Reason Start Date Expiration Date Visits Requested Visits Authorized [id number] Authorized Specialty Services Required 08/14/2023 09/12/2024 12 12 Encounter Details Date Type Department Care Team (Late st Contact Info) Description 2024 2:30 PM CDT Office Visit [facility] Neurosurgery [address] [facility] [address] [place] [address] Anson Jeffries NP [address] [place] [address] Degenerative cervical spinal stenosis (Primary Dx) Social History Tobacco Use Types Packs/Day Years Used Date Smoking Tobacco: Never Passive Smoke Exposure: Past Smokeless Tobacco: Never Tobacco Cessation:Counseling Given: No Alcohol Use Standard Drinks/Week Comments Yes 0 (1 standard drink = 0.6 oz pur e alcohol) occasional [facility] Utilities Answer Date Recorded In the [...] any time in the past [address] [facility], were you homeless or living [...] on file Legal Sex Female 11:52 PM INSULATION POWER UNIT TENDER Gender Identity Not on file Sexual Orientation Not on file documented as of this encounter Last Filed Vital Signs Vital Sign Reading Time Taken Comments Blood Pressure - - Pulse - - Temperature - - Respiratory Rate - - Oxygen Saturation - - Inhaled Oxygen Concentration - - Weight 98.9 kg (218 lb) 2024 3:12 PM CDT Height 167.6 cm (5' 6 ) 2024 3:12 PM CDT Body Mass Index 35.19 2024 3:12 PM CDT documented in this encounter Progress Notes * Anson Jeffries, OIL ANALYST - 2024 2:30 PM CDT Images from the original note were not included. RETURN VISIT Subjective HISTORY OF PRESENT ILLNESS Patient is a very pleasant 74-year-old female who has status post a C5-T2 posterior cervical decompression and fusion for cervical myeloradiculopathy. She was now 5 months out. X-ray films demonstrate intact instrumentation. Interval medical history notable for diagnosed melanoma of the right posterior arm. The patient was progressed well out from cervicothoracic surgery, incision is well healed, no significant neck pain or radicular symptoms has some residual numbness in bilateral fingers, intermittent. Regarding the lumbar spine the patient had scoliosis x-ray films completed showing unchanged sagittal imbalance, flat back deformity. The patient has ongoing some significant lower back pain that impacts her walking, pain along the lateral aspect of the right leg, no numbness or loss of sensation,she does endorse trouble with the right leg proximally and when walking. She acknowledges prior history of neuropathy and did undergo lumbar decompression L4-5 in 2021 with outside neurosurgeon. STEPHANIA: Patient is a very pleasant 73-year-old female who has status post a C5-T2 posterior cervical decompression and fusion for cervical myeloradiculopathy. Her cervical paresthesias are largely unchanged in comparison to prior surgery but her hand strength and dexterity is significantly improved. Her preoperative posture is unchanged and she continues to be walker dependent given her sagittal imbalance and inability to stand straight for any extended period of time without severe back pain. This hasbeen ongoing since her previous surgery at an outside facility in 2021. She is otherwise healthy. Her hemoglobin A1c is well- controlled. We will have her continue physical therapy, return to clinic in 3 months with repeat cervical plain films as well as ileus plain films to see if there is anythingwe can do about her sagittal balance and ongoing low back pain. On neurological exam she has full strength in bilateral upper extremities with the exception of 4+ very subtle hand payroll professional and intrinsic weakness. She is good strength in bilateral hip flexors, knee extensors, knee flexors, dorsiflexion, plantar flexion. She is able to stand without assistance and stand upright with a walker but with significant compensatory mechanisms including retroversion and flexion at the knees. She can stop wearing her cervical collar. Her cervical wound has healed well. I independently reviewed her cervical plain films that demonstrate excellent placement of the instrumentation without any evidence of instrumentation failure, fracture, fatigue, subsidence, pullout. VITAL SIGNS There were no vitals taken for this visit. ALLERGIES She has no known allergies. MEDICATIONS Current Outpatient Medications: acetaminophen 500 mg capsule, [...] tablet (81 mg total) by mouth early head start teacher before breakfast Do not restart until 2 weeks after surgery (12/07), Disp: , Rfl: blood glucose diagnostic (Contour Next Test Strips) strip, TEST BLOOD SUGAR 3 TIMES A DAY AND WILL MONTIOR RESPONSE. DX: E11.22., Disp: 200 strip, Rfl: 1 blood-glucose meter (CONTOUR NEXT USB METER) [facility], test as directed, Disp: 1 each, Rfl: 0 calcium carbonate-vitamin D3 1,500 mg (600 mg elemental)-500 unit capsule, Take by mouth, Disp: , Rfl: cephalexin (KEFLEX) 500 mg capsule, Take 1 capsule (500 mg total) by mouth 2 (two) times a day for 10 days, Disp: 20 capsule, Rfl: 0 cloNIDine (CATAPRES) 0.1 mg tablet, TAKE 1/2 [...] not started yet, wanted to talk to drRamo, Disp: 90 tablet, Rfl: 0 montelukast (SINGULAIR) 10 mg tablet, TAKE 1 TABLET BY MOUTH AT BEDTIME FOR ALLERGIES, Disp: 90 tablet, Rfl: 5 naloxone (NARCAN) 4 mg/actuation spray,non-aerosol, Administer 1 spray into affected nostril(s) as needed for opioid reversal, Disp: 1 each, Rfl: 0 Nyamyc powder, Apply topically early head start teacher before breakfast, Disp: , Rfl: omeprazole (PriLOSEC) 20 mg capsule, TAKE 1 CAPSUEL BY MOUTH TWICE DAILY FOR GERD, Disp: 180 capsule, Rfl: 5 ondansetron ODT (ZOFRAN-ODT) 8 mg disintegrating tablet, Take 1 tablet (8 mg total) by mouth every 8 (eight) hours as needed for nausea or vomiting, Disp: 12 tablet, Rfl: 1 pen needle, diabetic (BD Ultra-Fine Mini Pen [...] AT BEDTIME, Disp: 90 tablet, Rfl: 5 triamcinolone (KENALOG) 0.1 % cream, Apply topically legs, Disp: , Rfl: Objective PHYSICAL EXAM General: Alert, cooperative in NAD Respiratory: Normal respiratory effort and chest wall movement with respiration Psychologic: appropriate affect, pleasant Neurologic: Mental Status:alert & oriented X 3 LUE 5/5 D, 5/5 B, 5/5 T, 5/5 HG, 5/5 WF, 5/5 WE, 5/5 IO RUE 5/5 D, 5/5 B, 5/5 T, 5/5 HG, 5/5 WF, 5/5 WE, 5/5 IO LLE 5/5 IP, 5/5 Q, 5/5/H, 5/5 DF, 5/5 PF, 5/5 EHL RLE 5/5 IP, 5/5 Q, 5/5/H, 5/5 DF, 5/5 PF, 5/5 EHL Sensation intact Reflexes 2+ bilateral biceps, triceps, brachioradialis, 1+ patellar, achilles Bilateral LE edema Mauricio's negative, no clonus Station and Gait: remained in wheelchair Incision well healed REVIEW OF IMAGING Assessment/Plan PLAN Status post C5-T2 posterior spinal fusion Lumbar stenosis, neurogenic claudication Anterior sagittal imbalance, loss of lumbar lordosis, back pain - standing scoliosis x-ray films reviewed for purpose of discussing further surgical intervention for the lumbar spine with Dr. Castillo - MRI and CT thoracolumbar spine without contrast - encouraged further progression with weight management, has progressed from BMI of 38-35.1 - DEXA scan - follow up in office after imaging Anson Jeffries NP documented in this encounter Plan of Treatment Not on file documented as of this encounter Visit Diagnoses Diagnosis Degenerative cervical spinal stenosis- Primary Spinal stenosis in cervical region documented in this encounter Care Teams Sports Agent Relationship Specialty Start Date End Date Lalito England MD [address] [place] [address] PCP - General 08/03/19 documented as of this encounter
--- OUTSIDE RECORDS SUMMARY | 2024-07-11 22:33 | XMS_ITS | Encounter Summary ---
Author Organization [facility] Healthcare Address [address] [place] [address] Care Team Providers Care Hub Borer Name Role Phone Lalito England MD Primary Care Provider [phone] [phone] Reason for Visit * Auth/Cert (Routine) Specialty Diagnoses / Procedures Referred By Contac t Referred To Contact Diagnoses 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) [C43.61] Procedures MO INTRAOP SENTINEL LYMPH NODE ID W/DYE INJECTION RIGHT SENTINEL LYMPH NODE BIOPSY (PRE OP LYMPHOSCINTIGRAPHY (GENERAL, 1% LIDO WITH EPI; NEOPROTIN) Referral ID Status Reason Start Date Expiration Date Visits Re quested Visits Authorized [id number] 1 1 Encounter Details Date Type Department Care Team (Late st Contact Info) Description 04/20/2024 11:15 AM CDT Anesthesia Event [facility] Operating Room [address] [place] [address] Clayton Gonzales MD [address] [place] [id number] Rick Bran MD [address] [place] [address] [place] [address] Anesthesia Record Procedure Summary Procedure Name Responsible Anesthesiologist Anesthesia Start Time Anesthesia Stop Time RIGHT SENTINEL LYMPH NODE BIOPSY (PRE OP LYMPHOSCINTIGRAPHY (GENERAL, 1% LIDO WITH EPI NEOPROTIN) (Right: Chest) Events Date Time Event Comment 04/20/2024 1007 Meds * Agents No agents on file. * Blood No blood administrations on file. Lines, Drains, and Airways No LDAs on file. documented in this encounter Social History Tobacco [...] often do you attend chur ch or scientologist services? Never 01/19/2024 Do you belong to [...] place to sleep or slept in a long term (including now)? No 07/16/2022 Housing Stability Vital Sign Answer Albaro e Recorded In the last 12 months, was t here a time when you were not able to pay the mortgage or rent on time? No 01/19/2024 In the past 12 months, how m any times have you moved where you were living? 0 01/19/2024 At any time in the past 12 m [facility], were you homeless or living in a long term (including now)? No 01/19/2024 Personal Safety Answer Date Recorded Have you ever been in or are you currently in a harmful physical or emotional relationship or is someone making you feel afraid or unsafe? 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 Anesthesia Evaluation Criss Ly is a 73 y.o. female RIGHT SENTINEL LYMPH NODE BIOPSY (PRE OP LYMPHOSCINTIGRAPHY (GENERAL, 1% LIDO WITH EPI NEOPROTIN) (Right: Chest) Pre-Op Diagnosis Codes: * 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 ([facility]) [C43.61] HISTORY Past Medical History Information obtained from: [...] of insulin ([facility]) ([facility]) 02/09/2024 CKD stage 3b, GFR 30-44 ml/min ([facility]) 02/09/2024 BMI 34.0-34.9,adult 02/09/2024 Obesity (BMI 30.0-34.9) 02/09/2024 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 ([facility]) ([facility]) 01/06/2024 Secondary hyperparathyroidism of renal origin ([facility]) 01/06/2024 Cervical stenosis of spine 11/24/2023 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 ([facility]) 11/10/2023 Melanoma of right upper arm ([facility]) 10/27/2023 BMI 39.0-39.9,adult 10/05/2023 Chronic anticoagulation 10/05/2023 Family history of colon cancer in father 05/27/2023 Encounter for screening colonoscopy 05/27/2023 Personal history of COVID-19 02/18/2022 Acute embolism and thrombosis of right femoral vein ([facility]) 01/18/2022 Age-related osteoporosis without current pathological fracture 01/18/2022 Difficulty in walking, not elsewhere classified 01/18/2022 Gastro-esophageal reflux disease without esophagitis 01/18/2022 Hypertension secondary to endocrine disorders 01/18/2022 Spinal stenosis, lumbar region without neurogenic claudication 01/18/2022 Type 2 diabetes mellitus with diabetic neuropathy, unspecified ([facility]) 01/18/2022 Unsteadiness on feet 01/18/2022 Type 2 diabetes mellitus with hyperlipidemia (HCC) 01/17/2022 Chronic back pain 01/17/2022 Weakness of both lower extremities 01/16/2022 Lumbar radiculopathy 12/06/2021 Sacroiliitis (HCC) 09/07/2021 Cervicalgia 09/07/2021 Low back pain 09/07/2021 Insomnia secondary to chronic pain 09/07/2021 Degenerative cervical spinal stenosis 09/07/2021 Degenerative disc disease, cervical 09/07/2021 CKD (chronic kidney disease) stage 4, GFR 15-29 ml/min ([facility]) (HCC) 08/23/2021 Morbid (severe) obesity due to excess calories ([facility]) 08/22/2021 DDD (degenerative disc disease), lumbar 08/17/2021 Degenerative lumbar spinal stenosis 08/17/2021 Lumbar post-laminectomy syndrome 08/17/2021 Persistent vomiting 11/17/2018 Hx of colonic polyps 09/04/2018 Family hx of colon cancer 09/04/2018 Healthcare maintenance 12/27/2016 Medication management 12/27/2016 Idiopathic osteoporosis with pathological fracture 08/14/2015 Arthralgia of hip 07/21/2015 Adenomatous polyp of colon 04/08/2015 Sarcoidosis of lung ([facility]) 04/08/2015 Fever 08/25/2014 Type 2 diabetes mellitus with stage 3 chronic kidney disease, with long-term current use of insulin([facility]) 11/27/2013 Severe obesity (BMI 35.0-39.9) with comorbidity ([facility]) 11/27/2013 Hyperlipidemia 04/01/2012 Disorder of peripheral nervous system ([facility]) 04/01/2012 Hypertension associated with diabetes ([facility]) 04/01/2012 Past Medical History: Diagnosis Date Asthma Benign hypertension with CKD (chronic kidney disease) stage III (HCC) Cancer (CMS/[facility]) ([facility]) Melanoma skin cancer Cervicalgia 11/24/2023 Dvt femoral (deep venous thrombosis) ([facility]) ([facility]) r eg Gastroesophageal reflux disease GERD HX OTHER MEDICAL PMO HX OTHER MEDICAL HAND BLOCKER HX OTHER MEDICAL CMC OA HX OTHER MEDICAL 2008 Discectomy, cervical HX OTHER MEDICAL Fall HX OTHER MEDICAL Left proximal femoral Gamma Nail fixation proximal; Comments: PAULETTE 07/25/2015 - HX OTHER MEDICAL RTKR 2001.; Comments: PAULETTE 07/25/2015 - HX OTHER MEDICAL LTKR 2006.; Comments: J 07/25/2015 - HX OTHER MEDICAL Back surgery 2007.; Comments: J 07/25/2015 - HX OTHER MEDICAL Cervical disc surg. 2007.; Comments: J 07/25/2015 - HX OTHER MEDICAL Breast reduction 2008.; Comments: J 07/25/2015 - HX OTHER MEDICAL left hip and leg surgery HX OTHER MEDICAL conversion of previous hip arthroplasty left hip; Comments: [facility] TCU unit 02/06 - 02/17/16 for [...] Left 02/05/2016 Dr. David Sykes, [facility] - conversion of previous hip arthroplasty left hip: Conversion of Arthroplasty left hip TOTAL KNEE ARTHROPLASTY Left 09/27/2005 Left TKA - Dr. Cole Beckham TOTAL KNEE ARTHROPLASTY Right 08/27/2001 Right TKA - Dr. Kuldeep Basurto OB History 0 Para 0 Term 0 0 AB 0 Living 0 SAB 0 IAB 0 Ectopic 0 Multiple 0 Live Births 0 No Known Allergies Med List Status: Nurse Complete Set By: Pita Toledo RN at 04/14/2024 10:04 AM Taking? Last Dose Start Date End Date Provider acetaminophen 500 mg capsule 04/16/2024 12/04/23 -- Andi Simmons, MARKOS Take 2 capsules (1,000 mg total) by mouth every 6 (six) hours albuterol HFA (PROVENTIL HFA,VENTOLIN HFA,PROAIR HFA) 90 mcg/actuation inhaler Unknown -- -- Sofiya Gibbons MD apixaban (ELIQUIS) 5 mg tablet 04/17/2024 12/08/23 -- Andi Simmons NP Take 1 tablet (5 mg total) by mouth 2 (two) times a day Do not restart eliquis until two weeks after surgery (12/07) aspirin 81 mg enteric coated tablet 04/13/2024 12/08/23 -- Andi Simmons NP Take 1 tablet (81 mg total) by mouth engineer conductor before breakfast Do not restart until 2 weeks after surgery (12/07) blood glucose diagnostic (Contour Next Test Strips) strip 04/19/2024 09/11/23 -- Lalito England MD TEST BLOOD SUGAR 3 TIMES A DAY AND WILL MONTIOR RESPONSE. DX: E11.22. blood-glucose meter (CONTOUR NEXT USB METER) [facility] [place] 04/19/2024 07/04/14 -- Clayton Sandoval MD test as directed calcium carbonate-vitamin D3 1,500 mg (600 mg elemental)-500 unit capsule 04/13/2024 -- -- Sofiya Gibbons MD cloNIDine (CATAPRES) 0.1 mg tablet 04/20/2024 06/12/23 -- Lalito England MD TAKE 1/2 TABLET BY MOUTH TWICE DAILY FOR HYPERTENSION docusate sodium (COLACE) 100 mg capsule 04/19/2024 -- -- Sofiya Gibbons MD finasteride (PROSCAR) 5 mg tablet 04/19/2024 10/24/23 -- Sofiya Gibbons MD fluticasone propionate (FLONASE) 50 mcg/actuation nasal spray 04/20/2024 02/26/24 -- Sofiya Gibbons MD fluticasone propionate (FLOVENT HFA) 110 mcg/actuation inhaler 04/20/2024 01/20/24 -- Sofiya Gibbons MD furosemide (LASIX) 20 mg tablet 04/19/2024 04/01/24 04/01/25 Lalito England MD TAKE 2 TABLETS (40 MG TOTAL) BY MOUTH DAILY. gabapentin (NEURONTIN) 100 mg capsule 04/19/2024 -- -- Sofiya Gibbons MD HYDROcodone-acetaminophen (NORCO) 5-325 mg per tablet 04/19/2024 04/19/24 -- Lalito England MD Take 1 tablet by mouth every 6 (six) hours as needed for pain insulin aspart (NovoLOG) 100 unit/mL (3 mL) pen for injection 04/19/2024 04/14/23 -- Lalito England MD Inject 15 Units under the skin 3 (three) times a day before meals lancets (MICROLET LANCET) [facility] [place] 04/19/2024 07/26/15 -- Clayton Sandoval MD test by fingerstick route 3 times daily losartan (COZAAR) 25 mg tablet 04/20/2024 01/22/24 -- Lalito England MD Take 0.5 tablets (12.5 mg total) by mouth daily Patient has not started yet, wanted to talk to dr. rodríguez (SINGULAIR) 10 mg tablet 04/19/2024 06/12/23 -- Lalito England MD TAKE 1 TABLET BY MOUTH AT BEDTIME FOR ALLERGIES naloxone (NARCAN) 4 mg/actuation spray,non-aerosol Unknown 12/28/21 -- David Caruso MD Administer 1 spray into affected nostril(s) as needed for opioid reversal Nyamyc powder -- 10/22/23 -- Sofiya Gibbons MD omeprazole (PriLOSEC) 20 mg capsule 04/19/2024 03/25/23 -- Lalito England MD TAKE 1 CAPSUEL BY MOUTH TWICE DAILY FOR GERD pen needle, diabetic (BD Ultra-Fine Mini Pen Needle) 31 gauge x 3/16 needle 04/19/2024 01/09/24 -- Lalito England MD 1 NEEDLE DIRECTED (4 PER DAY) polyethylene glycol (MIRALAX) 17 gram packet 04/14/2024 -- -- Sofiya Gibbons MD semaglutide (Ozempic) 2 mg/dose (8 mg/3 mL) pen injector injection 04/05/2024 03/25/24 -- Lalito England MD INJECT 2 MG SUBCUTANEOUSLY ONE TIME PER WEEK SEMGLEE-yfgn 100 unit/mL (3 mL) pen for injection 04/19/2024 10/22/23 -- ProviderSofiya MD senna-docusate (PERICOLACE) 8.6-50 mg 04/19/2024 12/04/23 -- Andi Simmons NP Take 2 tablets by mouth 2 (two) times a day simvastatin (ZOCOR) 40 mg tablet 04/19/2024 06/12/23 -- Lalito England MD TAKE 1 TABLET BY MOUTH AT BEDTIME triamcinolone (KENALOG) 0.1 % cream Past Month 10/24/23 -- ProviderSofiya MD Current Facility-Administered Medications: Carrier Fluids for Secondary Infusion - 0.9% Sodium Chloride, 30 mL, intravenous, PRN ceFAZolin (ANCEF) 2,000 mg/20 mL in sterile water (premix) 2,000 mg, 2,000 mg, intravenous, Once [Held by Provider] celecoxib (CeleBREX) capsule 200 mg, 200 mg, oral, Once potassium chloride 20 mEq/260 mL in sodium chloride 0.9% (premix) 20 mEq, 20 mEq, intravenous, Once sodium chloride 0.9% flush 0.5-20 mL, 0.5-20 mL, intra-catheter, PRN sodium chloride 0.9% infusion, 30 mL/hr, intravenous, Continuous, Last Rate: 30 mL/hr at 04/20/24 0715, 30 mL/hr at 04/20/24 0715 Social History Tobacco Use Smoking Status Never Passive exposure: Past Smokeless Tobacco Never Alcohol Use: Not At Risk (04/14/2024) AUDIT-C [...] Neg Hx Thyroid cancer Neg Hx Vitals: 04/20/24 0733 BP: 128/50 Pulse: 73 Resp: 18 Temp: 36.1 ??C (96.9 ??F) SpO2: 96% PT: No results found for requested labs [...] labs within last 30 days. BMP Glucose: 04/20/2024: 152 mg/dL Calcium: No results found for requested labs [...] for requested labs within last 30 days. STOP-Bang Total Score: 3 EKG 11/14/23 SINUS RHYTHM LOW QRS VOLTAGE IN PRECORDIAL LEADS DOS Physical Exam Medical history, medications, and allergies reviewed. Attestation: I endorse the findings of the anesthesia pre-evaluation assessment dated: 04/20/2024. Airway Exam: Mallampati: II Cervical ROM: FROM TM distance: normal Cardiovascular Exam: Rate: regular Rhythm: regular Pulmonary Exam: LCTA, bilat Dental Exam: Appears intact Current state: Patient's current state is cooperative and interactive. Anesthesia Plan ASA 4 My patient is approved for the Anesthesia Controlled Medication protocol when under care of a PHYSICAL INTEGRATION PRACTITIONER Planned anesthesia: MAC and general TIVA Team communication plan: mask Induction: Induction: intravenous. Postoperative Plan: Patient's planned disposition post procedure is Outpatient. Informed Consent: Discussed plan with attending and PHYSICAL INTEGRATION PRACTITIONER. Anesthesia plan and risks discussed with patient. [...] on filedocumented in this encounter Care Teams Hub Borer Relationship Specialty Start Date End Date Lalito England MD [address] [place] [address] PCP - General 08/03/19 documented as of this encounter
--- OUTSIDE RECORDS SUMMARY | 2024-07-11 22:33 | XMS_ITS | Encounter Summary ---
Author Organization [facility] Healthcare Address [address] [place] [address] Care Team Providers Care Product Merchandiser Name Role Phone Lalito England MD Primary Care Provider [phone] [phone] Reason for Visit * Reason Onset Date Comments Referral Request 04/22/2024 Encounter Details Date Type Department Care Team (Late st Contact Info) Description 04/22/2024 Telephone [facility] [address] [facility] [address] Lalito England MD [address] [place] [address] Referral Request Social History Tobacco Use Types Packs/Day Years Used Date Smoking Tobacco: Never Passive Smoke Exposure: Past Smokeless Tobacco: Never Alcohol Use Standard Drinks/Week Comments Yes 0 (1 standard drink = 0.6 oz pur e alcohol) occasional [facility] Utilities Answer Date Recorded In the past 12 months has [employer], gas, oil, or water [employer] threatened to shut off services in your [...] often do you attend [facility] or congregation services? 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 Gender Identity Not on file Sexual Orientation Not on file documented as of this encounter Miscellaneous Notes * Telephone Encounter - Svitlana Mitchell - 04/22/2024 12:21 PM CDT Let patient know that referral is good through the end of the year and she won't need another referral until her next visit in 2024 * Telephone Encounter - Mallory Godoy - 04/22/2024 11:52 AM CDT Referral Provider Name: Sr Autumn Evans Specialty: Cryogenics Engineer Address: [address] [place] [address], Zip: [place] [address] Diagnosis Code/Symptom/Reason Patient is being seen: 6 month follow up Date of Appointment: [id number] NPI#: [id number] Tax ID#: [id number] Is insurance in chart up to date? Yes - [facility] Additional Comments: none Does message need to be routed? Yes-Action Needed documented in this encounter Plan of Treatment Not on file documented as of this encounter Visit Diagnoses Not on filedocumented in this encounter Care Teams Product Merchandiser Relationship Specialty Start Date End Date [place] [address] PCP - General 08/03/19 documented as of this encounter
--- OUTSIDE RECORDS SUMMARY | 2024-07-11 22:33 | XMS_ITS | Encounter Summary ---
Author Organization [facility] Healthcare Address [address] [place] [address] Care Team Providers Care Advertising Production Manager Name Role Phone Lalito England MD Primary Care Provider [phone] [phone] Reason for Visit * Reason Onset Date Comments Authorization/Certification 04/13/2024 Encounter Details Date Type Department Care Team (Late st Contact Info) Description 04/13/2024 Telephone [facility] Physicians [facility] [address] [place] [address] Lalito England MD [address] [address] Authorization/Certific ation Social History Tobacco Use Types Packs/Day Years Used Date Smoking Tobacco: Never Passive Smoke Exposure: Past Smokeless Tobacco: Never Alcohol Use Standard Drinks/Week Comments Yes 0 (1 standard drink = 0.6 oz pur e alcohol) occasional C Utilities Answer Date Recorded In the past 12 months has [employer], gas, oil, or water [employer] threatened to shut off services in your [...] 01/19/2024 How often do you attend [facility] or nondenominational services? 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 [facility] Facility name: [facility] NPI# (if available): [id number] Facility phone#: [phone] Facility fax#: [phone] Date test/procedure is scheduled: 04/20/24 Additional Comments: NA Does message need to be routed? Yes-Action Needed documented in this encounter Plan of Treatment Not on file documented as of this encounter Visit Diagnoses Not on filedocumented in this encounter Care Teams Advertising Production Manager Relationship Specialty Start Date End Date Lalito England MD [address] [place] [address] PCP - General 08/03/19 documented as of this encounter
--- OUTSIDE RECORDS SUMMARY | 2024-07-11 22:33 | XMS_ITS | Encounter Summary ---
Author Organization [facility] Healthcare Address [address] [place] [address] Care Team Providers Care Patient Access Manager Name Role Phone Lalito England MD Primary Care Provider [phone] [phone] Encounter Details Date Type Department Care Team (Late st Contact Info) Description 04/13/2024 Telephone [facility] [address] [place] [address] Eva Arnold RN Social History Tobacco Use Types Packs/Day Years Used Date Smoking Tobacco: Never Passive Smoke Exposure: Past Smokeless Tobacco: Never Alcohol Use Standard Drinks/Week Comments Yes 0 (1 standard drink = 0.6 oz pur e alcohol) occasional [facility] Utilities Answer Date Recorded [...] any clubs o r organizations such as advent groups, unions, fraternal or athletic groups, or [...] place to sleep or slept in a intermediate (including now)? No 07/16/2022 Housing Stability Vital Sign Answer Albaro e Recorded In the last 12 months, was t here a time when you were not able to pay the mortgage or rent on time? No 01/19/2024 In the past 12 months, how m any times have you moved where you were living? 0 01/19/2024 At any time in the past 12 m [facility], were you homeless or living in a intermediate (including now)? No 01/19/2024 Personal Safety Answer Date Recorded Have you ever been in or are you currently in a harmful physical or emotional relationship or is someone making you feel afraid or unsafe? 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 Pulled orders and gave to ARTHUR Shnae to get scheduled. documented in this encounter Plan of Treatment Not on file documented as of this encounter Visit Diagnoses Not on filedocumented in this encounter Care Teams Patient Access Manager Relationship Specialty Start Date End Date Lalito England MD [address] [place] [address] PCP - General 08/03/19 documented as of this encounter
--- OUTSIDE RECORDS SUMMARY | 2024-07-11 22:33 | XMS_ITS | Encounter Summary ---
Author Organization [facility] Healthcare Address [address] [place] [address] Care Team Providers Care Production Checker Name Role Phone Lalito England MD Primary Care Provider [phone] [phone] Reason for Visit * Reason Onset Date Comments [facility] 2024 Encounter Details Date Type Department Care Team (Late st Contact Info) Description 2024 Telephone [facility] Care Organization [address] [place] [id number] Delisa Miranda MA [facility] Social History Tobacco Use Types Packs/Day Years Used Date Smoking Tobacco: Never Passive Smoke Exposure: Past Smokeless Tobacco: Never Alcohol Use Standard Drinks/Week Comments Yes 0 (1 standard drink = 0.6 oz pur e alcohol) occasional [facility] Utilities Answer Date Recorded In the past 12 months has [employer], gas, oil, or water company threatened [...] often do you attend chur ch or anabaptism services? 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 Visit has been uploaded to patient's chart (under Media). Delisa Miranda CMA Piece Marker [employer] [facility] documented in this encounter Plan of Treatment Not on file documented as of this encounter Visit Diagnoses Not on filedocumented in this encounter Care Teams Production Checker Relationship Specialty Start Date End Date Lalito England MD [address] [place] [address] PCP - General 08/03/19 documented as of this encounter
--- OUTSIDE RECORDS SUMMARY | 2024-07-11 22:33 | XMS_ITS | Encounter Summary ---
Author Organization [facility] Healthcare Address [address] [place] [address] Care Team Providers Care Steam Pressure Chamber Operator Name Role Phone Lalito England MD Primary Care Provider [phone] [phone] Reason for Referral * MRI/CAT/PET Scan (Routine) - Authorized Specialty Diagnoses / Procedures Referred By Contac t Referred To Contact Radiology Diagnoses Melanoma of right upper arm (HCC) Procedures PET/CT FDG Skull to Thigh Yaniv Callaway MD [address] [place] [address] Phone: tel: fax: [address] [phone] Referral ID Status Reason Start Date Expiration Date V isits Requested Visits Authorized [id number] Authorized 04/22/2024 05/22/2025 2 2 Reason for Visit * MRI/CAT/PET Scan (Routine) - Authorized Specialty Diagnoses / Procedures Referred By Contac t Referred To Contact Radiology Diagnoses Melanoma of right upper arm (HCC) Procedures PET/CT FDG Skull to Thigh Yaniv Callaway MD [address] [place] [address] Phone: tel: fax: [address] [phone] Referral ID Status Reason Start Date Expiration Date V isits Requested Visits Authorized [id number] Authorized 04/22/2024 05/22/2025 2 2 Encounter Details Date Type Department Care Team (Latest Contact Info) Description 04/28/2024 11:08 AM CDT - 04/28/2024 11:59 PM CDT Hospital Encounter [facility] [address] [place] [address] Melanoma of right upper arm (HCC) Discharge Disposition: Discharge to home or self care Social History Tobacco Use Types Packs/Day Years Used Date Smoking Tobacco: Never Passive Smoke Exposure: Past Smokeless Tobacco: Never Alcohol Use Standard Drinks/Week Comments Yes 0 (1 standard drink = 0.6 oz pur e alcohol) occasional [facility] Utilities Answer Date Recorded In the [...] often do you attend chur ch or adventism services? 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 Gender Identity Not on file Sexual [...] 1 tablet (81 mg total) by mouth wellness nurse before breakfast Do not restart until 2 [...] without long-term current use of insulin ([facility]) Inject 15 Units under the skin 3 [...] 4 05/17/20 24 Nyamyc powder Apply topically wellness nurse before breakfast 4 05/26/20 24 omeprazole (PriLOSEC) [...] Procedure Name Priority Date/Time Associated Diagnosis Comments PET/CT FDG SKULL TO THIGH Schedule Routine, Read Routine (OP Routine) 04/28/2024 1:05 PM CDT Melanoma of right upper arm (HCC) documented in this encounter Results * PET/CT FDG Skull [...] AM T: ??04/29/2024 10:07 AM Report ID: [id number] Reading Location: ??[id number] Procedure Note Cr Alexander Jr., MD - [...] by Cr Alexander M.D. CH: Report ID: [id number] Reading Location: [place] [address] [place] Yaniv Callaway MD IMG PET PROCEDURES Final Result documented in this encounter Visit Diagnoses Diagnosis Melanoma of right upper arm (HCC) documented in this encounter Administered Medications Inactive Administered Medications - up to 3 most recent administrations Medication Order MAR Action Action Date Dose Rate Site fludeoxyglucose F-18 (FDG) injection 13.97 millicurie 13.97 millicurie, intravenous, Once in imaging, radiopharmaceutical , Starting on Fri04/28/24 at 1143, For 1 dose Given 04/28/2024 11:35 AM CDT 13.97 millicuries Right Antecubital documented in this encounter Orders Medications Ordered That Cash ht Not Have Been Administered Count Last Ordered Date First Ordered Date fludeoxyglucose F-18 (FDG) i njection 13.97 millicurie 1 04/28/2024 documented in this encounter Care Teams Steam Pressure Chamber Operator Relationship Specialty Start Date End Date [place] [address] PCP - General 08/03/19 documented as of this encounter
--- OUTSIDE RECORDS SUMMARY | 2024-07-11 22:33 | XMS_ITS | Encounter Summary ---
Author Organization [facility] Healthcare Address [address] [place] [address] Care Team Providers Care Vp Project Name Role Phone Lalito England MD Primary Care Provider [phone] Reason for Visit * Diagnostic Imaging (Routine) - Pending Review Specialty Diagnoses / Procedures Referred By Giuliana t Referred To Contact Diagnoses Degenerative cervical spinal stenosis Procedures XR Scoliosis 6 or More Views XR Scoliosis 4 or 5 Views Anson Jeffries, MARKOS [address] [place] [address] Phone: tel: fax: [facility] [address] [phone] Referral ID Status Reason Start Date Expiration Date V isits Requested Visits Authorized [id number] Pending Review 04/12/2024 05/12/2025 1 1 Encounter Details Date Type Department Care Team (Latest Contact Info) Description 2024 2:00 PM CDT - 2024 11:59 PM CDT Hospital Encounter [id number] [address] [facility] [address] [place] [address] Degenerative cervical spinal stenosis Discharge Disposition: Discharge to home or self care Social History Tobacco Use Types Packs/Day Years Used Date Smoking Tobacco: Never Passive Smoke Exposure: Past Smokeless Tobacco: Never Alcohol Use Standard Drinks/Week Comments Yes 0 (1 standard drink = 0.6 oz pur e alcohol) occasional [facility] Utilities Answer Date Recorded In the [...] often do you attend chur ch or restoration services? 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 Gender Identity Not on file Sexual [...] 1 tablet (81 mg total) by mouth jack setter before breakfast Do not restart until 2 [...] long-term current use of insulin ([facility]) Inject 15 Units under the [...] 4 05/17/20 24 Nyamyc powder Apply topically jack setter before breakfast 4 05/26/20 24 omeprazole (PriLOSEC) [...] Name Priority Date/Time Associated Diagnosis Comments XR SCOLIOSIS 6 OR MORE VIEWS Schedule Routine, Read Routine (OP Routine) 2024 3:03 PM CDT Degenerative cervical spinal stenosis documented in this encounter Results * XR Scoliosis 6 or More Views [...] signed by: Altaf Verduzco D.O. Anson Jeffries NP IMG XR PROCEDURES Final Result documented in this encounter Visit Diagnoses Diagnosis Degenerative cervical spinal stenosis Spinal stenosis in cervical region documented in this encounter Care Teams Vp Project Relationship Specialty Start Date End Date Lalito England MD [address] [place] [address] PCP - General 08/03/19 documented as of this encounter
--- OUTSIDE RECORDS SUMMARY | 2024-07-11 22:33 | XMS_ITS | Encounter Summary ---
Author Organization [facility] Healthcare Address [address] [place] [address] Care Team Providers Care Windshield Repair Technician Name Role Phone Lalito England MD Primary Care Provider [phone] Reason for Visit * Reason Onset Date Comments Referral Request 04/22/2024 Encounter Details Date Type Department Care Team (Late st Contact Info) Description 04/22/2024 Telephone [facility] [address] [place] [address] Lalito England MD [address] [place] [address] Referral Request Social History Tobacco Use Types Packs/Day Years Used Date Smoking Tobacco: Never Passive Smoke Exposure: Past Smokeless Tobacco: Never Alcohol Use Standard Drinks/Week Comments Yes 0 (1 standard drink = 0.6 oz pur e alcohol) occasional [facility] Utilities Answer Date Recorded In the past 12 months has [employer], gas, oil, or water [employer] threatened to shut off services in your [...] attend [facility] or moravian services? Never 01/19/2024 Do you belong to any clubs o r organizations such as sikhism groups, unions, fraternal or athletic groups, or [...] place to sleep or slept in a retirement (including now)? No 07/16/2022 Housing Stability Vital [...] were you homeless or living in a retirement (including now)? No 01/19/2024 Personal Safety Answer Date Recorded Have you ever been in or are you currently in a harmful physical or emotional relationship or is someone making you feel afraid or unsafe? 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 Patient aware. * Telephone Encounter - Mallory Godoy - 04/22/2024 11:43 AM CDT Referral Provider Name: Dr Екатерина Christiansen Specialty: Stripping And Booking Machine Operator Address: [address] [place] [address], Zip: [place] [address] Diagnosis Code/Symptom/Reason Patient is being seen: 6 month follow up Date of Appointment: [id number] NPI#: n/a Tax ID#: n/a Is insurance in chart up to date? Yes - [employer] Additional Comments: none Does message need to be routed? Yes-Action Needed documented in this encounter Plan of Treatment Not on file documented as of this encounter Visit Diagnoses Not on filedocumented in this encounter Care Teams Windshield Repair Technician Relationship Specialty Start Date End Date Lalito [place] [address] PCP - General 08/03/19 documented as of this encounter
--- OUTSIDE RECORDS SUMMARY | 2024-07-11 22:34 | XMS_ITS | Encounter Summary ---
Author Organization [facility] Healthcare Address [address] [place] [address] Care Team Providers Care Manager City Name Role Phone Lalito England MD Primary Care Provider [phone] Encounter Details Date Type Department Care Team (Late st Contact Info) Description 03/08/2024 Telephone [facility] [place] [address] [facility] [employer] [address] Lalito England MD [address] [place] [address] Social History Tobacco Use Types Packs/Day Years Used Date Smoking Tobacco: Never Passive Smoke Exposure: Past Smokeless Tobacco: Never Alcohol Use Standard Drinks/Week Comments Yes 0 (1 standard drink = 0.6 oz pur e alcohol) occasional [facility] Utilities Answer Date Recorded In the past 12 months has [employer], gas, oil, or water [employer] threatened to shut off services in your [...] How often do you attend chur or evangelical services? Never 01/19/2024 Do you belong to any clubs o r organizations such as episcopalian groups, unions, fraternal or athletic groups, or school groups? No 01/19/2024 How often do you attend meet ings of the clubs or organizations you belong to? Never 01/19/2024 Are you , , di vorced, , never , or living with a partner? 01/19/2024 AUDIT-C Answer Date Recorded Q1: How often do you have a drink containing alcohol? Never 02/10/2024 Q2: How many drinks containi ng alcohol do you have on a typical day when you are drinking? Patient does not drink Q3: How often do you have si x or more drinks on one occasion? 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 Called patient and she will have someone bring those tax refunds documented in this encounter Plan of Treatment Not on file documented as of this encounter Visit Diagnoses Not on filedocumented in this encounter Care Teams Manager City Relationship Specialty Start Date End Date Lalito England MD [address] [place] [address] PCP - General 08/03/19 documented as of this encounter
--- OUTSIDE RECORDS SUMMARY | 2024-07-11 22:34 | XMS_ITS | Encounter Summary ---
Author Organization [facility] Address [address] [facility] [address] [place] [address] Phone Care Team Providers Care Restoration Officer Name Role Phone Lalito England MD Primary Care Provider [phone] [phone] Parvin Whelan RN Unavailable [phone] Reason for Visit * Consultation (Routine) - Authorized Specialty Diagnoses / Procedures Referred By Contayah t Referred To Contact Neurosurgery Diagnoses Degenerative cervical spinal stenosis Lalito England MD [address] [place] [address] Phone: tel: fax: Brennan Castillo MD [address] [place] [address] Phone: tel: fax: Referral ID Status Reason Start Date Expiration Date Visits Requested Visits Authorized [id number] Authorized Specialty Services Required 08/14/2023 09/12/2024 12 12 Encounter Details Date Type Department Care Team (Late st Contact Info) Description 01/07/2024 12:30 PM CDT Office Visit [facility] Neurosurgery [address] [place] [address] Medical Office [address] [place] [address] Brennan Castillo MD [address] [place] [address] Degenerative cervical spinal stenosis (Primary Dx) Social History Tobacco Use Types Packs/Day Years Used Date Smoking Tobacco: Never Passive Smoke Exposure: Past Smokeless Tobacco: Never Tobacco Cessation:Counseling Given: No Alcohol Use Standard Drinks/Week Comments Yes 0 (1 standard drink = 0.6 oz pur e alcohol) occasional AUDIT-C Answer Date Recorded Q1: How often do you have a drink containing alcohol? Never 11/24/2023 Q2: How many drinks containi ng alcohol do you have on a typical day when you are drinking? Patient does not drink Q3: How often do you have si x or more drinks on one occasion? Never 11/24/2023 Overall Financial Resource Strain (CARDIA) Answe r Date Recorded How hard is it for you to pa y for the very basics like food, housing, medical care, and heating? Not very hard 07/16/2022 PHQ-2 Answer Date Recorded PHQ-2 Total Score (If total score is 3 or more points, staff should administer the PHQ-9) 0 12/29/2023 PRAPARE - Transportation Answer Date Re corded In the past 12 months, has l ack of transportation kept you from medical appointments or from getting medications? No 09/2022 In the past 12 months, has l ack of transportation kept you from meetings, work, or from getting things needed for daily living? No 07/16/2022 Housing Stability Vital Sign Answer [...] place to sleep or slept in a mcc (including now)? No 07/16/2022 Personal Safety Answer Date Recorded Have you ever been in or are you currently in a harmful physical or emotional relationship or is someone making you feel afraid or unsafe? 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 Gender Identity Not on file Sexual Orientation Not on file documented as of this encounter Last Filed Vital Signs Vital Sign Reading Time Taken Comments Blood Pressure - - Pulse - - Temperature - - Respiratory Rate - - Oxygen Saturation - - Inhaled Oxygen Concentration - - Weight 94.8 kg (209 lb) 01/07/2024 12:14 PM CDT Height 167.6 cm (5' 5.98 ) 01/07/2024 12:14 PM C DT Body Mass Index 33.75 01/07/2024 12:14 PM CDT documented in this encounter Progress Notes * Brennan Castillo MD - 01/07/2024 12:30 PM CDT Patient is a very pleasant 73-year-old female [...] the exception of 4+ 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 TAKE 1 TABLET BY MOUTH EVERY FRIDAY FOR OSTEOPOROSIS Therapy completed 06/12/2023 01/07/2024 albuterol HFA (PROVENTIL HFA,VENTOLIN HFA,PROAIR HFA) 90 mcg/actuation inhaler Inhale 2 puffs every 6 (six) hours as needed for wheezing Therapy completed 08/07/2022 01/07/2024 cyclobenzaprine (FLEXERIL) 5 mg tablet Take 1 tablet (5 mg total) by mouth 3 (three) times a day as needed for muscle spasms Therapy completed 12/04/2023 01/07/2024 documented as of this encounter Care Teams Restoration Officer Relationship Specialty Start Date End Date Lalito England MD [address] [place] [address] PCP - General 08/03/19 Parvin Whelan RN [address] [place] [address] DR HARDY [address] [place] [address] Crystal Finisher 12/19/23 01/18/24 documented as of this encounter
--- OUTSIDE RECORDS SUMMARY | 2024-07-11 22:34 | XMS_ITS | Encounter Summary ---
Author Organization [facility] Healthcare Address [address] [place] [address] Care Team Providers Care Agency Recruiter Name Role Phone Lalito England MD Primary Care Provider [phone] Reason for Referral * Home Health (Routine) - Closed Specialty Diagnoses / Procedures Referred By Contayah t Referred To Contact Home Health Services Diagnoses Gait instability Lalito England MD [address] [place] [address] Phone: tel: fax: [employer] [address] [place] [address] Phone: tel: fax: Referral ID Status Reason Start Date Expiration Date V isits Requested Visits Authorized [id number] Closed Specialty Services Required 02/03/2024 03/04/2025 1 1 Question [facility] Primary disciplines requested: Physical Therapy Home Health Services Therapy to Eval/Tx Therapy instructions: Musklo/skeletal rehab Requested Start of Care Date: 24-48 hours Physician to follow patient's care (the person listed here will be responsible for signing ongoing orders): PCP I attest that I or another qualified licensed provider saw the patient 90 days prior to or 30 days post admission and this face to face encounter meets the necessary Home Health requirements. The face to face encounter occurred on (date): 12/29/2023 The encounter with the patient was in whole, or in part, for the following medical condition, which is the primary reason for home health care. (List medical condition): weakness s/p operative intervention I certify that, based on my findings, the following services are medically necessary skilled home health services: Therapy to Eval/Tx Clinical findings that support the need for home care: Frequent falls requiring safety eval/therapy I certify that my clinical findings support patient's homebound status. Homebound criteria met because: Requires assistance of another to leave home safely Encounter Details Date Type Department Care Team (Late st Contact Info) Description 02/03/2024 Orders Only [facility] [place] [address] [facility] [place] [address] Lalito England MD [address] [place] [address] Gait instability (Primary Dx) Social History Tobacco Use Types Packs/Day Years Used Date Smoking Tobacco: Never Passive Smoke Exposure: Past Smokeless Tobacco: Never Alcohol Use Standard Drinks/Week Comments Yes 0 (1 standard drink = 0.6 oz pur e alcohol) occasional [employer] Utilities Answer Date Recorded In the past 12 months has [employer], gas, oil, or water company threatened [...] often do you attend chur ch or mormon services? Never 01/19/2024 Do you belong to [...] you have a drink containing alcohol? Never 02/03/2024 Q2: How many drinks containi ng alcohol do you have on a typical day when you are drinking? Patient does not drink Q3: How often do you have si x or more drinks on one occasion? Never 02/03/2024 Overall Financial Resource Strain (CARDIA) Answe r Date Recorded How hard is it for you to pa y for the very basics like food, housing, medical care, and heating? Not very hard 01/19/2024 PHQ-2 Answer Date Recorded PHQ-2 Total Score (If total score is 3 or more points, staff should administer the PHQ-9) 0 12/29/2023 Hunger Vital Sign Answer Date Recorded Within [...] place to sleep or slept in a senior living (including now)? No 07/16/2022 Housing Stability Vital [...] were you homeless or living in a senior living (including now)? No 01/19/2024 Personal Safety Answer Date Recorded Have you ever been in or are you currently in a harmful physical or emotional relationship or is someone making you feel afraid or unsafe? 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 Gender Identity Not on file Sexual Orientation Not on file documented as of this encounter Plan of Treatment Scheduled Referrals Name Type Priority Associated Diagnoses Order Schedule Ambulatory referral to Home Health Outpatient Referral Routine Gait instability 1 Occurrences starting 02/03/2024 until 08/05/2024 documented as of this encounter Visit Diagnoses Diagnosis Gait instability- Primary Abnormality of gait documented in this encounter Care Teams Agency Recruiter Relationship Specialty Start Date End Date Lalito England MD [address] [place] [address] PCP - General 08/03/19 documented as of this encounter
--- OUTSIDE RECORDS SUMMARY | 2024-07-11 22:34 | XMS_ITS | Encounter Summary ---
Author Organization [facility] Healthcare Address [address] [place] [address] Care Team Providers Care Pl Sql Developer Name Role Phone Lalito England MD Primary Care Provider [phone] Reason for Visit * Reason Onset Date Comments Referral Request 01/23/2024 Encounter Details Date Type Department Care Team (Late st Contact Info) Description 01/23/2024 Telephone Family Physicians [facility] [address] [place] [address] Lalito England MD [address] [place] [address] Referral Request Social History Tobacco Use Types Packs/Day Years Used Date Smoking Tobacco: Never Passive Smoke Exposure: Past Smokeless Tobacco: Never Alcohol Use Standard Drinks/Week Comments Yes 0 (1 standard drink = 0.6 oz pur e alcohol) occasional [facility] Utilities Answer Date Recorded In the past 12 months has [employer], gas, oil, or water [employer] threatened to shut off services in your [...] 01/19/2024 How often do you attend [facility] or judaism services? Never 01/19/2024 Do you belong to [...] place to sleep or slept in a care home (including now)? No 07/16/2022 Housing Stability [...] in the past 12 m [facility], were you homeless or living in a care home (including now)? No 01/19/2024 Personal Safety Answer Date Recorded Have you ever been in or are you currently in a harmful physical or emotional relationship or is someone making you feel afraid or unsafe? Denies 11/24/2023 Comments No Sex and Gender Information Value Date Recorded Sex Assigned at Not on file Legal Sex Female 11:52 PM [employer] Gender Identity Not on file Sexual Orientation Not on file documented as of this encounter Miscellaneous Notes * Telephone Encounter - Stormy Ibrahim - 01/23/2024 1:19 PM CDT Previous podiatry referral ([id number]) is good through 07/10/2024. Faxed pulmonology referral, received confirmation; patient aware * Telephone Encounter - Maryann Smalls - 01/23/2024 1:05 PM CDT Referral Provider Name (if patient is seeing a nurse practitioner or physician assistant case manager, list the HAIR DRESSER/PA, but also their collaborating doctor): Autumn Evans, D.P.M. Specialty: Podiatry Foot Surgery [facility] [address] [place] [address] Diagnosis Code/Symptom/Reason Patient is being seen: routine Date of Appointment: 01.26 NPI#: [id number] Tax ID#: Unknown Is insurance in chart up to date? Yes Additional Comments: Marking high priority patient's appointment is Friday Does message need to be routed? Yes-Action Needed Referral Provider Name (if patient is seeing a nurse practitioner or physician assistant case manager, list the HAIR DRESSER/PA, but also their collaborating doctor): Gabby, Tito Maxim, M.D. Specialty: Pulmonary Diseases [facility] [address] [place] [address] Diagnosis Code/Symptom/Reason Patient is being seen: Yearly check Date of Appointment: 02.10 NPI#: [id number] Tax ID#: Unknown Is insurance in chart up to date? Yes Additional Comments: No Does message need to be routed? Yes-Action Needed documented in this encounter Plan of Treatment Not on file documented as of this encounter Visit Diagnoses Not on filedocumented in this encounter Care Teams Pl Sql Developer Relationship Specialty Start Date End Date Lalito England MD [address] [place] [address] PCP - General 08/03/19 documented as of this encounter
--- OUTSIDE RECORDS SUMMARY | 2024-07-11 22:34 | XMS_ITS | Encounter Summary ---
Author Organization [facility] Healthcare Address [address] [place] [address] Care Team Providers Care Ferry Hand Name Role Phone Lalito England MD Primary Care Provider [phone] Reason for Visit * Auth/Cert (Routine) Specialty Diagnoses / Procedures Referred By Contac t Referred To Contact Diagnoses Family history of colon cancer in father Encounter for screening colonoscopy Adenomatous polyp of colon, unspecified part of colon Family history of colon cancer in father [Z80.0] Encounter for screening colonoscopy [Z12.11] Adenomatous polyp of colon, unspecified part of colon [D12.6] Procedures MS COLONOSCOPY FLX DX W/COLLJ SPEC WHEN PFRMD COLONOSCOPY Referral ID Status Reason Start Date Expiration Date Visits Re quested Visits Authorized [id number] 1 1 Encounter Details Date Type Department Care Team (Late st Contact Info) Description 04/13/2024 12:25 PM CDT - 04/13/2024 12:55 PM CDT Surgery [facility] [address] [place] [address] Karlene Ramirez MD [address] [place] [address] [address] COLON REMOVAL SNARE Surgery Details Date/Time Status Location OR Service Patient Class Case Class Case Type Trauma Case? 04/13/2024 12:25 PM Posted [facility] ENDOSCOPY GI 01 Gastroenterology Outpatient Elective Panel 1 Procedure LRB Anes Op Region Wound Class Comments COLON REMOVAL SNARE N/A Monitor Anesthesia Care ENDO ADD ON COLON BIOPSY N/A Choice Surgeon Surgeon Role Service Panel Karlene Ramirez MD Primary Gastroenterology 1 documented in this encounter Social History Tobacco Use Types Packs/Day Years Used Date Smoking Tobacco: Never Passive Smoke Exposure: Past Smokeless Tobacco: Never Alcohol Use Standard Drinks/Week Comments Yes 0 (1 standard drink = 0.6 oz pur e alcohol) occasional [facility] Utilities Answer Date Recorded In the [...] often do you attend chur ch or moravian services? Never 01/19/2024 Do you belong to any clubs o r organizations such as spiritism groups, unions, fraternal or athletic groups, or [...] place to sleep or slept in a halfway (including now)? No 07/16/2022 Housing Stability Vital [...] were you homeless or living in a halfway (including now)? No 01/19/2024 Personal Safety Answer Date Recorded Have you ever been in or are you currently in a harmful physical or emotional relationship or is someone making you feel afraid or unsafe? 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 Gender Identity Not on file Sexual Orientation Not on file documented as of this encounter Last Filed Vital Signs Vital Sign Reading Time Taken Comments Blood Pressure 117/65 04/13/2024 11:29 AM CDT Pulse 70 04/13/2024 11:29 AM CDT Temperature 36.5 ??C (97.7 ??F) 04/13/2024 11:29 AM C DT Respiratory Rate 16 04/13/2024 11:29 AM CDT Oxygen Saturation 97% 04/13/2024 11:29 AM CDT Inhaled Oxygen Concentration - - Weight 99.3 kg (219 lb) 04/13/2024 11:29 AM CDT Height 167.6 cm (5' 6 ) 04/13/2024 11:29 AM CDT Body Mass Index 35.35 04/13/2024 11:29 AM CDT documented in this encounter Medications at Time [...] 1 tablet (81 mg total) 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 Do not restart until 2 [...] 10 days 20 capsule 4 04/30/20 24 calcium carbonate-vitamin D3 500 mg(1,250mg) -400 unit tablet Take one by mouth two times per day 0 0 8 04/14/20 24 fluticasone propionate (FLONASE) 50 mcg/actuation nasal spray Administer 2 sprays into each nostril daily 4 05/25/20 24 gabapentin (NEURONTIN) 100 mg capsule Take 1 capsule (100 mg total) by mouth 4 (four) times a day 360 capsule 1 4 04/14/20 24 HYDROcodone-acetami nophen (NORCO) 5-325 mg per tabletIndications:P ain Take 1 tablet by mouth every 6 (six) hours as needed for pain 60 tablet 4 04/19/20 24 methocarbamoL (ROBAXIN) 500 mg tablet Take 1 tablet (500 mg total) by mouth 3 (three) times a day 4 04/14/20 24 Nyamyc powder Apply topically 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 female presented for evaluation for screening for colon cancer. History of colon polyps. Her father had colon cancer. 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 07/25/2015 - HX OTHER MEDICAL RTKR 2001.; Comments: [facility] 07/25/2015 - HX OTHER MEDICAL LTKR 2005.; Comments: [facility] 07/25/2015 - HX OTHER MEDICAL Back surgery 2006.; Comments: [facility] 07/25/2015 - HX OTHER MEDICAL Cervical disc surg. 2007.; Comments: [facility] 07/25/2015 - HX OTHER MEDICAL Breast reduction 2008.; Comments: [facility] 07/25/2015 - HX OTHER MEDICAL left hip and leg surgery HX OTHER MEDICAL conversion of previous hip arthroplasty left hip; Comments: [facility] TCU unit 02/06 - 02/17/16 for rehabilitation. [...] Management REDUCTION MAMMAPLASTY Bilateral 2008 SHOULDER SURGERY Right 02/10/2024 Pt had melanoma cut out. TONSILLECTOMY tonsillectomy TOTAL HIP ARTHROPLASTY Left 02/05/2016 Dr. David Sykes, [facility] - conversion of previous hip arthroplasty left hip: Conversion of Arthroplasty left hip TOTAL KNEE ARTHROPLASTY Left 09/27/2005 Left TKA - Dr. Cole Beckham TOTAL KNEE ARTHROPLASTY Right 08/27/2001 Right TKA - Dr. Light Serot No medications prior to admission. No Known Allergies Social History Tobacco Use [...] Neg Hx Thyroid cancer Neg Hx Physical Exam: Patient is awake and answers well. Eyes: no jaundice. Lungs: CTA anteriorly. ENT: no mouth ulcers. Abdomen: soft, no distention, no tenderness, bowel sounds positive. Extremities: no edema. Skin: no rash. GI IMPRESSION: 1. Screening for colon cancer GI PLAN/RECOMMENDATIONS: colonoscopy Karlene Ramirez MD documented in this encounter Procedure Notes * Karlene Ramirez MD - 04/13/2024 11:49 AM CDTAssociated Order(s): COL[facility]OSCOPY [facility] Patient Name: Criss Renteria Procedure Date: 04/13/2024 11:49 AM Date of : 1950 Admit Type: Outpatient Age: 73 Gender: Female Attending MD: Karlene Ramirez M.D. Room: [facility] ENDOSCOPY ROOM 1 Note Status: Finalized Patient Profile: This is a 73 year old female. History of polyps. Father had colon cancer. Procedure: Colonoscopy Indications: Screening in patient at increased risk: Family history of 1st-degree relative with colorectal cancer, High risk colon cancer surveillance: Personal history of colonic polyps, Last colonoscopy: September 2018 Referring MD: Lalito England M.D. Providers: Karlene Ramirez M.D. Impression: - One 5 mm polyp in the cecum, removed with a jumbo cold forceps. Resected and retrieved. - One 4 mm polyp in the descending colon. Removed with Jumbo cold forceps. Resected and retrieved - Three 8 to 9 mm polyps in the descending colon and in the transverse colon, removed with a cold snare. Resected and retrieved. - One 9 mm polyp in the sigmoid colon, removed with a cold snare. Resected and retrieved. - Internal hemorrhoids. Recommendation: - Await pathology results. - Repeat colonoscopy in 3 years for surveillance with 2 days colon preparation. - Continue present medications. Medicines: Monitored Anesthesia Care Complications: No immediate complications. Estimated Blood Loss: Estimated blood loss: none. Procedure: Pre-Anesthesia Assessment: - Prior to the procedure, a History and Physical was performed, and patient medications and allergies were reviewed. The patient's tolerance of previous anesthesia was also reviewed. The risks and benefits of the procedure and the sedation options and risks were discussed with the patient. All questions were answered, and informed consent was obtained. Prior Anticoagulants: The patient has taken no anticoagulant or antiplatelet agents. ASA Grade Assessment: Per anesthesia note and evaluation. After reviewing the risks and benefits, the patient was deemed in satisfactory condition to undergo the procedure. The benefits, risks and alternatives of the procedure and sedation were discussed and informed consent was obtained. All questions were answered. Please refer to the signed informed consent document in the medical record. The bowel preparation used was Miralax via split dose instruction. The bowel preparation used was bisacodyl tablets via split dose instruction. The scope was passed under direct vision. The Pediatric Colonoscope PCF-H190L [id number] was introduced through the anus and advanced to the the cecum, identified by appendiceal orifice and ileocecal valve. The quality of the bowel preparation was fair. Bowel prep was administered using a split dose. Findings: The perianal and digital rectal examinations were normal. The appendiceal orifice was normal. Patient has long tortuous redundant colon. A 5 mm polyp was found in the cecum. The polyp was sessile. The polyp was removed with a jumbo cold forceps. Resection and retrieval were complete. The ascending colon appeared normal. Three sessile polyps were found in the descending colon and transverse colon. The polyps were 8 to 9 mm in size. These polyps were removed with a cold snare. Resection and retrieval were complete. Neither 4 mm semi sessile polyp noted in the descending colon removed with a Jumbo cold forceps. Resected and retrieved. A 9 mm polyp was found in the sigmoid colon. The polyp was sessile. The polyp was removed with a cold snare. Resection and retrieval were complete. Internal hemorrhoids were found during retroflexion. The hemorrhoids were medium-sized. Electronically signed by Karlene Ramirez M.D. Karlene Ramirez M.D. 04/13/2024 1:57:18 PM Number of Addenda: 0 Note Initiated On: 04/13/2024 11:49 AM Procedure Code(s): --- Professional --- 18458, Colonoscopy, flexible; with removal of tumor(s), polyp(s), or other lesion(s) by snare technique 95278, 59, Colonoscopy, flexible; with biopsy, single or multiple Diagnosis Code(s): --- Professional --- Z80.0, Family history of malignant neoplasm of digestive organs Z86.010, Personal history of colonic polyps D12.0, Benign neoplasm of cecum D12.5, Benign neoplasm of sigmoid colon K64.8, Other hemorrhoids D12.4, Benign neoplasm of descending colon D12.3, Benign neoplasm of transverse colon (hepatic flexure or splenic flexure) CPT copyright 2020 [employer]. All rights reserved. The codes documented in this report are preliminary and upon knitter wire mesh review may be revised to meet current compliance requirements. Recognized by the [employer] for promoting quality in endoscopy documented in this encounter Nursing Notes * Tracy Giles RN - 04/13/2024 2:57 PM CDT 1429-Dr. Ramirez at bedside to discuss procedure results with pt. Recommends pt to have repeat colonoscopy in 3 years with a two day prep. Pt can return on all medications. Pt verbalized understanding. documented in this encounter Plan of Treatment Not on file documented as of this encounter Procedures Procedure Name Priority Date/Time Associated Diagnosis Comments ENDO ADD ON COLON BIOPSY 04/13/2024 12:46 PM CDT Family history of colon cancer in father Encounter for screening colonoscopy Adenomatous polyp of colon, unspecified part of colon COLON REMOVAL SNARE 04/13/2024 1 2:46 PM CDT Family history of colon cancer in father Encounter for screening colonoscopy Adenomatous polyp of colon, unspecified part of colon POCT GLUCOSE DEVICE Routine 04/13/2024 1 1:57 AM CDT COLONOSCOPY 04/13/2024 11:49 AM CDT SURGICAL PATHOLOGY STAT 04/13/2024 10 :20 AM CDT Family history of colon cancer in father Encounter for screening colonoscopy Adenomatous polyp of colon, unspecified part of colon documented in this encounter Results * POCT glucose (04/13/2024 11:57 AM CDT) Glucose, POC 156 70 - 199 mg/dL Blood 04/13/2024 11:5 7 AM CDT 04/13/2024 11:57 AM CDT Karlene Ramirez MD LAB POCT ORDERABLES - MUKESH CE Final Result [facility] Department of Laboratories [place], [place] [id number] * Colonoscopy (04/13/2024 11:49 AM CDT) Anatomical Region Laterality Modality Other Narrative Procedure Note Karlene Ramirez MD - 04/13/2024 11:49 AM CDT [facility] Patient Name: Criss Renteria Procedure Date: 04/13/2024 11:49 AM Date of : 1950 Admit Type: Outpatient Age: 73 Gender: Female Attending MD: Karlene Ramirez M.D. Room: [facility] ENDOSCOPY ROOM 1 Note Status: Finalized Patient Profile: This is a 73 year old female. History of polyps. Father had colon cancer. Procedure: Colonoscopy Indications: Screening in patient at increased risk: Familyhistory of 1st-degree relative with colorectal cancer, High risk colon cancer surveillance: Personal history of colonic polyps, Last colonoscopy: September 2018 Referring MD: Lalito England M.D. Providers: Kalrene Ramirez M.D. Impression: - One 5 mm [...] under direct vision. The Pediatric Colonoscope PCF-H190L [id number] was introducedthrough the anus and advanced to [...] 11:49 AM Procedure Code(s): --- Professional --- 61101, Colonoscopy, flexible; with removal of tumor(s), polyp(s), or other lesion(s) by snare technique 98182, 59, Colonoscopy, flexible; with biopsy, single or multiple Diagnosis Code(s): --- Professional --- Z80.0, Family history of malignant neoplasm of digestive organs Z86.010, Personal history of colonic polyps D12.0, Benign neoplasm of cecum D12.5, Benign neoplasm of sigmoid colon K64.8, Other hemorrhoids D12.4, Benign neoplasm of descending colon D12.3, Benign neoplasm of transverse colon (hepatic flexure orsplenic flexure) CPT copyright 2020 [employer]. All rights reserved. The codes documented in this report are preliminary and upon knitter wire mesh reviewmay be revised to meet current compliance requirements. Recognized by the [employer] for promoting quality in endoscopy us Karlene Ramirez MD ENDOSCOPY PROCEDURES Final Result * Surgical pathology (04/13/2024 10:20 AM CDT) Tissue (Polyp(s), colon/colorectal, esophageal, gastric) 04/13/2024 1:10 PM CDT Tissue (Polyp(s), colon/colorectal, esophageal, gastric) 04/13/2024 1:17 PM CDT Tissue (Polyp(s), colon/colorectal, esophageal, gastric) 04/13/2024 1:35 PM CDT Narrative PATHOLOGY [facility] - 04/15/2024 1:47 PM CDT EPIC results best viewed via link to PDF [facility] Department of Pathology [address] [place] [address] Note to Patients: This report may contain [...] the details. Final Report Patient Name: ??CRISS RENTERIA Address: ??[address] [place] [address], ??[place], [place] ??[address]- Gender: ??F : ??1950 (Age: 73) Service: ??Gastro Location: ??[facility] Hospital #: ??[id number] Patient Type: ??[facility] Accession # ?[id number] Taken: ??04/13/2024 Received: ??04/14/2024 Accessioned: ??04/14/2024 Reported: [...] submitted in three formalin containers labeled CRISS RENTERIA . A. ??The first container is labeled [...] bisected. All in [facility]Raffi Sauceda M.D. REPORT IMAGES AND SCANNED DOCUMENTS, IF INCLUDED, ONLY VIEWABLE IN PDF VERSION OF REPORT The performance characteristics of some immunohistochemical stains, fluorescence in-situ hybridization tests and immunophenotyping by flow cytometry cited in this report (if any) were determined by the Surgical Pathology Department at [facility] as part of an ongoing quality systems specialist program and in compliance with federally mandated [...] characteristics determined by the Surgical Pathology Department [facility]. ??It has not been cleared or approved by the U. S. Food and Drug Administration. Note for decalcified specimens: This assay has not been validated on decalcified tissues. Results should be interpreted with caution given the possibility of false negativity on decalcified specimens Karlene Ramirez MD LAB PATHOLOGY ORDERABLES F inal Result Performing Organization Address City/State/[facility] Co de Phone Number PATHOLOGY [facility] [address] [place] [address] documented in this encounter Visit Diagnoses Diagnosis Family history of colon cancer in father Encounter for screening colonoscopy Adenomatous polyp of colon, unspecified part of colon Family history of colon cancer in father Encounter for screening colonoscopy Adenomatous polyp of colon, unspecified part of colon documented in this encounter Admitting Diagnoses Diagnosis Adenomatous polyp of colon Benign neoplasm of colon Family history of colon cancer in father Encounter for screening colonoscopy documented in this encounter Administered Medications Inactive Administered Medications - up to 3 most recent administrations Medication Order MAR Action Action Date Dose Rate Site ondansetron (ZOFRAN) injection 4 mg 4 mg, intravenous, Administer over 2 Minutes, Every 30 min PRN, nausea, vomiting, Starting on Fri04/13/24 at 1124, For 2 doses, Recovery (GI), Indications: Nausea and VomitingIndications:Nausea and Vomiting sodium chloride 0.9% flush 0.5-20 mL 0.5-20 mL, intra-catheter, As needed, line care, Starting on Fri04/13/24 at 1124, Pre-Procedure (GI), Flush volume based on line type and size. Flush before and after each use. sodium chloride 0.9% infusion 30 mL/hr, intravenous, Continuous, Starting on Fri04/13/24 at 1200, Pre-Procedure (GI) New Bag 04/13/2024 12:10 PM CDT 30 mL/hr 30 mL/hr sodium chloride 0.9% infusion 125 mL/hr, intravenous, Continuous, Starting on Fri04/13/24 at 1200, Recovery (GI) documented in this encounter Active and Recently Administered Medications Times are shown in CDT. Continuous Medication Order 04/11/2024 04/12/2024 04/13/2024 sodium chloride 0.9% infusion 30 mL/hr, intravenous, Continuous, Starting on Fri04/13/24 at 1200, Pre-Procedure (GI) 1210 (New Bag - Prov ider: Tracy Giles RN)1904 (Due: Stopped) sodium chloride 0.9% infusion 125 mL/hr, intravenous, Continuous, Starting on Fri04/13/24 at 1200, Recovery (GI) 1408 (Not Given - Pr ovider: Tracy Giles RN - Reason: IV Infusing) PRN Medication Order 04/11/2024 04/12/2024 04/13/2024 ondansetron (ZOFRAN) injection 4 mg 4 mg, intravenous, Administer over 2 Minutes, Every 30 min PRN, nausea, vomiting, Starting on Fri04/13/24 at 1124, For 2 doses, Recovery (GI), Indications: Nausea and Vomiting sodium chloride 0.9% flush 0.5-20 mL 0.5-20 mL, intra-catheter, As needed, line care, Starting on Fri04/13/24 at 1124, Pre-Procedure (GI), Flush volume based on line type and size. Flush before and after each use. documented in this encounter Orders Medications Ordered That Cash ht Not Have Been Administered Count Last Ordered Date First Ordered Date ondansetron (ZOFRAN) injection 4 mg 1 04/13 sodium chloride 0.9% flush 0.5-20 mL 1 07/2023 sodium chloride 0.9% infusion 1 04/13/2024 documented in this encounter Care Teams Ferry Hand Relationship Specialty Start Date End Date Lalito England MD [address] [place] [address] PCP - General 08/03/19 documented as of this encounter
--- OUTSIDE RECORDS SUMMARY | 2024-07-11 22:34 | XMS_ITS | Encounter Summary ---
Author Organization [facility] Healthcare Address [address] [place] [address] Care Team Providers Care Hide Curer Name Role Phone Lalito England MD Primary Care Provider [phone] Reason for Visit * Auth/Cert (Routine) Specialty Diagnoses / Procedures Referred By Contac t Referred To Contact Diagnoses 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) [C43.61] Procedures MT DESTRUCTION MAL LESION TRUNK/ARM/LEG 1.1-2.0CM MT ADJT/REARRGMT SCALP/ARM/LEG 10.1-30.0 SQ CM WIDE EXCISION MELANOMA RIGHT SHOULDER ; ADJACENT TISSUE TRANSFER (GENERAL, 1% LIDO WITH EPI) Referral ID Status Reason Start Date Expiration Date Visits Re quested Visits Authorized [id number] 1 1 Encounter Details Date Type Department Care Team (Late st Contact Info) Description 02/10/2024 9:31 AM CDT Anesthesia Event [facility] Operating Room [address] [place] [address] [place] [id number] [address] [place] [id number] [address] Anesthesia Record Procedure Summary Procedure Name Responsible Anesthesiologist Anesthesia Start Time Anesthesia Stop Time WIDE EXCISION MELANOMA RIGHT SHOULDER WITH COMPLEX REPAIR (Right: Shoulder) Naseem Jeff MD 02/10/24 0931 02/10/24 1038 Events Date Time Event Comment 02/10/2024 0900 0931 In Room 0931 An Start 0931 An Start Data 0936 An Induction The patient was reevaluated immediately before moderate or deep sedation use and before anesthesia induction. 0936 An LMA 0936 Anesthesia Ready 0945 Proc Start 0954 Incision Start 1028 Proc Fin 1033 Airway Removed 1033 an stop data 1034 Out of Room 1038 Handoff to RN I completed my handoff [...] disposition at the time of handoff: PACU 1038 An Stop Meds Name Total propofol 120 mg lidocaine (cardiac) syringe 2 % 60 mg ceFAZolin (ANCEF) 2,000 mg/20 mL in ster ile water (premix) 2,000 mg 2,000 mg phenylephrine 0.5 mg/5 mL (100 mcg/mL) v ial 700 mcg dexmedeTOMIDine infusion 40 mcg ondansetron 4 mg diphenhydrAMINE 12.5 mg sodium chloride 0.9% infusion 600 mL * Agents Name O2 Air Sevoflurane Inspired Sevoflurane * Blood No blood administrations on file. Lines, Drains, and Airways Type Details Placement Removal RETIRED Wound 01/16/22; 1834; Yes; Anterior, Right; Foot; 04/20/24; 0701/16/22 1834 by Palmira Manley RN 04/20/24 0737 by Susy Chavez RN RETIRED Wound 01/16/22; 1835; Yes; Left; Heel; 04/20/24; 0737 01/16/22 1835 by Palmira Manley RN 04/20/24 0737 by Susy Chavez RN RETIRED Wound 01/16/22; 1835; Left ; Ankle/malleolus; 04/20/24; 0736 01/16/22 1835 by Palmira Manley RN 04/20/24 0736 by Susy Chavez RN RETIRED Wound 01/16/22; 1836; Anterior, Left; Foot; 04/20/24; 0736 01/16/22 1836 by Palmira Manley RN 04/20/24 0736 by Susy Chavez RN RETIRED Wound 11/14/23; 1034; Yes; Skin tear; Left; Frazier/tibia; 04/20/24; 0737 11/14/23 1034 by Susy Rodney RN 04/20/24 0737 by Susy Chavez RN RETIRED Surgical Site 11/24/23; 1405; Posterior; Spine; 04/20/24; 73611/24/23 1405 by Paola Stuart RN 04/20/24 0737 by Susy Chavez RN RETIRED Surgical Site 11/24/23; 1720; Ba ck; Dermabond, Aquacel; 04/20/24; 73611/24/23 1720 by Paola Stuart RN 04/20/24 0737 by Susy Chavez RN RETIRED Wound 11/24/23; 1919; Left , Right; Calf; reddend; 04/20/24; 0741 11/24/23 1919 by Nhung Bose RN 04/20/24 0741 by Susy Chavez RN Peripheral IV Placement Date: 02/10/24; Placement Time: 918; Catheter Size: 20 G; Orientation: Left, Posterior; Location: Forearm; Site Prep: Chlorhexidine; Technique: Transillumination; Inserted by: Collins LOWERY; Insertion Attempts: 1; Patient Tolerance: Tolerated well; Removal Date: 02/10/24; Removal Time: 115; Removal Reason: Discharge 02/10/24 0919 by Janae Thomson RN 02/10/24 1159 by Janae Thomson RN Supraglottic Airway Placement Date: 02/10/24; Placement Time: 100 (created via procedure documentation); Mask Ventilation: 1; Size: 3; Insertion Attempts: 1; Removal Date: 02/10/24; Removal Time: 1033 02/10/24 1001 by Kaila Gilliam CRNA 02/10/24 1033 by Kaila Gilliam CRNA RETIRED Surgical Site 02/10/24; 1028; Ri ght; Shoulder; 04/20/24; 0736 02/10/24 1028 by Candace Enciso RN 04/20/24 07 by Susy Chavez RN documented in this encounter Social History Tobacco Use Types Packs/Day Years Used Date Smoking Tobacco: Never Passive Smoke Exposure: Past Smokeless Tobacco: Never Alcohol Use Standard Drinks/Week Comments Yes 0 (1 standard drink = 0.6 oz pur e alcohol) occasional [facility] Utilities Answer Date Recorded In the past 12 months has th e [employer], gas, oil, or water [employer] threatened to shut off services in your [...] week 01/19/2024 How often do you attend [facility] or [facility] services? Never 01/19/2024 Do you belong to [...] in a mcc (including now)? No 07/16/2022 Housing Stability Vital [...] time in the past 12 m [place], were you homeless or living in a mcc (including now)? No 01/19/2024 Personal Safety Answer Date Recorded Have you ever been in or are you currently in a harmful physical or emotional relationship or is someone making you feel afraid or unsafe? 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 Gender Identity Not on file Sexual Orientation Not on file documented as of this encounter OR Notes * Anesthesia Postprocedure Evaluation - Kaila Gilliam CRNA - 02/10/2024 10:42 AM CDT Patient: Criss Ly Procedure Summary Date: 02/10/24 Room / Location: [facility] OR / [facility] OPERATING ROOM Anesthesia Start: 930 Anesthesia Stop: 1038 Procedure: WIDE EXCISION MELANOMA RIGHT SHOULDER WITH COMPLEX REPAIR (Right: Shoulder) Diagnosis: 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 (HCC) (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 (HCC) [C43.61]) Providers: Mark Pickett MD Responsible Provider: Naseem Jeff MD Anesthesia Type: general ASA Status: 4 Anesthesia Type: general Last vitals BP 125/60 Pulse 71 Temp 36.4 ??C (97.5 ??F) (Temporal) Resp 18 SpO2 100% Anesthesia Post Evaluation Patient location during evaluation: PACU Patient participation: complete - patient participated 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 * Anesthesia Procedure Notes - Kaila Gilliam CRNA - 02/10/2024 10:01 AM CDTAssociated Order(s): Airway Airway Patient location: OR Urgency: elective Indications for airway management: anesthesia Difficult airway: no Staff: Placed by: RETAIL ADMINISTRATIVE ASSISTANT: Kaila Gilliam CRNA Emergent airway documentation: Risks and benefits discussed: yes Consent obtained: yes Consent given by: patient Airway prep: Preoxygenated: yes Mask difficulty assessment: 1 - vent by mask Spontaneous ventilation during airway: present Sedation level during airway: GA Final airway details: Final airway type: supraglottic airway Final supraglottic airway: unique SGA size: 3 Number of attempts: 1 * Anesthesia Preprocedure Evaluation - Naseem Jeff MD - 02/09/2024 9:49 AM CDT Images from the original note were not included. Anesthesia Evaluation Criss Ly is a 73 y.o. female WIDE EXCISION MELANOMA RIGHT SHOULDER ADJACENT TISSUE TRANSFER (GENERAL, 1% LIDO WITH EPI) (Right: Shoulder) Pre-Op Diagnosis Codes: * 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 ([facility]) [C43.61] HISTORY Past Medical History [...] Melanoma. 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 ([facility]) ([facility]) 01/06/2024 Secondary hyperparathyroidism of renal origin ([facility]) 01/06/2024 Cervical stenosis of spine 11/24/2023 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 ([facility]) 11/10/2023 Melanoma of right upper arm ([facility]) 10/27/2023 BMI 39.0-39.9,adult 10/05/2023 Chronic anticoagulation 10/05/2023 Family history of colon cancer in father 05/27/2023 Encounter for screening colonoscopy 05/27/2023 Personal history of COVID-19 02/18/2022 Acute embolism and thrombosis of right femoral vein ([facility]) 01/18/2022 Age-related osteoporosis without current pathological fracture 01/18/2022 Difficulty in walking, not elsewhere classified 01/18/2022 Gastro-esophageal reflux disease without esophagitis 01/18/2022 Hypertension secondary to endocrine disorders 01/18/2022 Spinal stenosis, lumbar region without neurogenic claudication 01/18/2022 Type 2 diabetes mellitus with diabetic neuropathy, unspecified ([facility]) 01/18/2022 Unsteadiness on feet 01/18/2022 Type 2 diabetes mellitus with hyperlipidemia ([facility]) 01/17/2022 Chronic back pain 01/17/2022 Weakness of both lower extremities 01/16/2022 Lumbar radiculopathy 12/06/2021 Sacroiliitis ([facility]) 09/07/2021 Cervicalgia 09/07/2021 Low back pain 09/07/2021 Insomnia secondary to chronic pain 09/07/2021 Degenerative cervical spinal stenosis 09/07/2021 Degenerative disc disease, cervical 09/07/2021 CKD (chronic kidney disease) stage 4, GFR 15-29 ml/min ([facility]) (HCC) 08/23/2021 Morbid (severe) obesity due to excess calories ([facility]) 08/22/2021 DDD (degenerative disc disease), lumbar 08/17/2021 Degenerative lumbar spinal stenosis 08/17/2021 Lumbar post-laminectomy syndrome 08/17/2021 Persistent vomiting 11/17/2018 Hx of colonic polyps 09/04/2018 Family hx of colon cancer 09/04/2018 Healthcare maintenance 12/27/2016 Medication management 12/27/2016 Idiopathic osteoporosis with pathological fracture 08/14/2015 Arthralgia of hip 07/21/2015 Adenomatous polyp of colon 04/08/2015 Sarcoidosis of lung ([facility]) 04/08/2015 Fever 08/25/2014 Type 2 diabetes mellitus with stage 3 chronic kidney disease, with long-term current use of insulin([facility]) 11/27/2013 Severe obesity (BMI 35.0-39.9) with comorbidity ([facility]) 11/27/2013 Hyperlipidemia 04/01/2012 Disorder of peripheral nervous system ([facility]) 04/01/2012 Hypertension associated with diabetes ([facility]) 04/01/2012 Past Medical History: Diagnosis Date Asthma Benign hypertension with CKD (chronic kidney disease) stage III ([facility]) Cervicalgia 11/24/2023 Dvt femoral (deep venous thrombosis) ([facility]) ([facility]) r eg Gastroesophageal reflux disease GERD HX OTHER MEDICAL 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 2007.; Comments: J 07/25/2015 - HX OTHER MEDICAL Breast reduction 2008.; Comments: [facility] 07/25/2015 - HX OTHER MEDICAL left hip and leg surgery HX OTHER MEDICAL conversion of previous hip arthroplasty left hip; Comments: [facility] TCU unit 02/06 - 02/17/16 for rehabilitation. [...] NECK SURGERY november 8 screws in neck OTHER SURGICAL HISTORY Fall: Medical Management REDUCTION MAMMAPLASTY Bilateral 2008 TONSILLECTOMY tonsillectomy TOTAL HIP ARTHROPLASTY Left 02/05/2016 Dr. David Sykes, [facility] - conversion of previous hip arthroplasty left hip: Conversion of Arthroplasty left hip TOTAL KNEE ARTHROPLASTY Left 09/27/2005 Left TKA - Dr. Cole Beckhma TOTAL KNEE ARTHROPLASTY Right 08/27/2001 Right TKA - Dr. Kuldeep Basurto OB History 0 Para 0 Term 0 0 AB 0 Living 0 SAB 0 IAB 0 Ectopic 0 Multiple 0 Live Births 0 No Known Allergies Taking? Last Dose Start Date End Date Provider acetaminophen 500 mg capsule -- 12/04/23 -- Andi Simmons NP Take 2 capsules (1,000 mg total) by mouth every 6 (six) hours albuterol HFA (PROVENTIL HFA,VENTOLIN HFA,PROAIR HFA) 90 mcg/actuation inhaler -- -- -- Provider, MD Sofiya apixaban (ELIQUIS) 5 mg tablet -- 12/08/23 -- Andi Simmons NP Take 1 tablet (5 mg total) by mouth 2 (two) times a day Do not restart eliquis until two weeks after surgery (12/07) aspirin 81 mg enteric coated tablet -- 12/08/23 -- Andi Simmons, MARKOS Take 1 tablet (81 mg total) by mouth food inspector before breakfast Do not restart until 2 weeks after surgery (12/07) blood glucose diagnostic (Contour Next Test Strips) strip -- 09/11/23 -- Lalito England MD TEST BLOOD SUGAR 3 TIMES A DAY AND WILL MONTIOR RESPONSE. DX: E11.22. blood-glucose meter (CONTOUR NEXT USB METER) [facility] -- 07/04/14 -- Clayton Sandoval MD test as directed calcium carbonate-vitamin D3 500 mg(1,250mg) -400 unit tablet -- 08/10/07 -- Clayton Sandvoal MD Take one by mouth two times per day Patient taking differently: 500 mg cloNIDine (CATAPRES) 0.1 mg tablet -- 06/12/23 -- Lalito England MD TAKE 1/2 TABLET BY MOUTH TWICE DAILY FOR HYPERTENSION docusate sodium (COLACE) 100 mg capsule -- -- -- Sofiya Gibbons MD finasteride (PROSCAR) 5 mg tablet -- 10/24/23 -- Sofiya Gibbons MD fluticasone propionate (FLOVENT HFA) 110 mcg/actuation inhaler -- 01/20/24 -- Sofiya Gibbons MD furosemide (LASIX) 20 mg tablet -- 10/23/22 02/09/24 Lalito England MD Take 2 tablets (40 mg total) by mouth daily gabapentin (NEURONTIN) 100 mg capsule -- 12/29/23 -- Lalito England MD Take 1 capsule (100 mg total) by mouth 4 (four) times a day Patient taking differently: Take 1 capsule (100 mg total) by mouth 4 (four) times a day One tab tid, 2 tabs at night HYDROcodone-acetaminophen (NORCO) 5-325 mg per tablet -- 01/19/24 -- Lalito England MD Take 1 tablet by mouth every 6 (six) hours as needed for pain insulin aspart (NovoLOG) 100 unit/mL (3 mL) pen for injection -- 04/14/23 -- Lalito England MD Inject 15 Units under the skin 3 (three) times a day before meals lancets (MICROLET LANCET) [facility] -- 07/26/15 -- Clayton Sandoval MD test by fingerstick route 3 times daily losartan (COZAAR) 25 mg tablet -- 01/22/24 -- Lalito England MD Take 0.5 tablets (12.5 mg total) by mouth daily Patient has not started yet, wanted to talk to methocarbamoL (ROBAXIN) 500 mg tablet -- 12/04/23 -- Andi Simmons NP Take 1 tablet (500 mg total) by mouth 3 (three) times a day Patient not taking: Reported on 02/09/2024 montelukast (SINGULAIR) 10 mg tablet -- 06/12/23 -- Lalito England MD TAKE 1 TABLET BY MOUTH AT BEDTIME FOR ALLERGIES naloxone (NARCAN) 4 mg/actuation spray,non-aerosol -- 12/28/21 -- David Caruso MD Administer 1 spray into affected nostril(s) as needed for opioid reversal Patient not taking: Reported on 02/09/2024 Nyamyc powder -- 10/22/23 -- ProviderSofiya MD omeprazole (PriLOSEC) 20 mg capsule -- 03/25/23 -- Lalito England MD TAKE 1 CAPSUEL BY MOUTH TWICE DAILY FOR GERD Patient taking differently: Take 1 capsule (20 mg total) by mouth 2 (two) times a day pen needle, diabetic (BD Ultra-Fine Mini Pen Needle) 31 gauge x 3/16 needle -- 01/09/24 -- Lalito England MD 1 NEEDLE DIRECTED (4 PER DAY) polyethylene glycol (MIRALAX) 17 gram/dose powder -- 07/24/22 -- Lalito England MD Take 17 g by mouth daily Patient taking differently: Take 17 g by mouth as needed semaglutide (Ozempic) 2 mg/dose (8 mg/3 mL) pen injector injection -- 09/15/23 -- Lalito England MD INJECT 2 MG SUBCUTANEOUSLY ONE TIME PER WEEK Patient taking differently: Inject 2 mg under the skin once a week mondays-yfgn 100 unit/mL (3 mL) pen for injection -- 10/22/23 -- Sofiya Gibbons MD senna-docusate (PERICOLACE) 8.6-50 mg -- 12/04/23 -- Andi Simmons NP Take 2 tablets by mouth 2 (two) times a day simvastatin (ZOCOR) 40 mg tablet -- 06/12/23 -- Lalito England MD TAKE 1 TABLET BY MOUTH AT BEDTIME triamcinolone (KENALOG) 0.1 % cream -- 10/24/23 -- Sofiya Gibbons MD No current facility-administered medications for this encounter. Current Outpatient Medications: acetaminophen 500 mg capsule albuterol HFA (PROVENTIL HFA,VENTOLIN HFA,PROAIR HFA) 90 mcg/actuation inhaler apixaban (ELIQUIS) 5 mg tablet aspirin 81 mg enteric coated tablet calcium carbonate-vitamin D3 500 mg(1,250mg) -400 unit tablet cloNIDine (CATAPRES) 0.1 mg tablet docusate sodium (COLACE) 100 mg capsule finasteride (PROSCAR) 5 mg tablet fluticasone propionate (FLOVENT HFA) 110 mcg/actuation inhaler furosemide (LASIX) 20 mg tablet HYDROcodone-acetaminophen (NORCO) 5-325 mg per tablet insulin aspart (NovoLOG) 100 unit/mL (3 mL) pen for injection losartan (COZAAR) 25 mg tablet methocarbamoL (ROBAXIN) 500 mg tablet montelukast (SINGULAIR) 10 mg tablet Nyamyc powder omeprazole (PriLOSEC) 20 mg capsule polyethylene glycol (MIRALAX) 17 gram/dose powder semaglutide (Ozempic) 2 mg/dose (8 mg/3 mL) pen injector injection SEMGLEE-yfgn 100 unit/mL (3 mL) pen for injection senna-docusate (PERICOLACE) 8.6-50 mg simvastatin (ZOCOR) 40 mg tablet triamcinolone (KENALOG) 0.1 % cream blood glucose diagnostic (Contour Next Test Strips) strip blood-glucose meter (CONTOUR NEXT USB METER) misc gabapentin (NEURONTIN) 100 mg capsule lancets (MICROLET LANCET) misc naloxone (NARCAN) 4 mg/actuation spray,non-aerosol pen needle, diabetic (BD Ultra-Fine Mini Pen Needle) 31 gauge x 3/16 needle Social History Tobacco Use Smoking Status Never Passive exposure: Past Smokeless Tobacco Never Alcohol Use: Not At Risk (02/03/2024) AUDIT-C Frequency of Alcohol Consumption: Never Average [...] cancer Neg Hx Thyroid cancer Neg Hx There were no vitals filed for this visit. PT: No results found for requested labs [...] Mallampati: II Cervical ROM: FROM TM distance: >4 Cardiovascular Exam: Rate: regular Rhythm: regular Pulmonary Exam: LCTA, bilat EENT Exam: trachea midline Dental Exam: Appears intact Current state: Patient's current state is cooperative. Anesthesia Plan ASA 4 Planned anesthesia: General Team communication plan: oral ET tube Induction: Induction: intravenous. Postoperative Plan: Postoperative administration opioids intended. No postoperative mechanical ventilation intended. Patient's planned disposition post procedure is Outpatient. Informed Consent: Discussed plan with attending and RETAIL ADMINISTRATIVE ASSISTANT. Anesthesia plan and risks discussed with [...] Procedure Name Priority Date/Time Associated Diagnosis Comments MT AN ELECTIVE SUPRAGLOTTIC AIRWAY Routine 02/10/2024 10:01 AM CDT documented in this encounter Results * MT AN ELECTIVE SUPRAGLOTTIC AIRWAY (02/10/2024 10:01 AM CDT) Narrative Kaila Gilliam CRNA - 02/10/2024 10:01 AM CDT Kaila Gilliam CRNA ? 02/10/2024 10:01 AM Airway Patient location: OR Urgency: elective Indications for airway management: anesthesia Difficult airway: no Staff: Placed by: RETAIL ADMINISTRATIVE ASSISTANT: Kaila Gilliam CRNA Emergent airway documentation: Risks and benefits discussed: yes Consent obtained: yes Consent given by: patient Airway prep: Preoxygenated: yes Mask difficulty assessment: 1 - vent by mask Spontaneous ventilation during airway: present Sedation level during airway: GA Final airway details: Final airway type: supraglottic airway Final supraglottic airway: unique SGA size: 3 Number of attempts: 1 us Naseem Jeff MD ANESTHESIA ORDERABLES Jessica rodolfo Result documented in this encounter Visit Diagnoses Not on filedocumented in this encounter Administered Medications Inactive Administered Medications - up to 3 most recent administrations Medication Order MAR Action Action Date Dose Rate Site ceFAZolin (ANCEF) 2,000 mg/20 mL in sterile water (premix) 2,000 mg 2,000 mg, intravenous, at 400 mL/hr, Administer over 3 Minutes, Once, On Fri02/10/24 at 0930, For 1 dose, Pre-Op, Administer within 60 minutes of incision., Indications: Prophylaxis, SurgicalIndications:Prophylaxis , Surgical Given 02/10/2024 9:39 AM CDT 2,000 mg dexmedeTOMIDine in 0.9% sodium chloride (PRECEDEX) 200 mcg/50 mL (4 mcg/mL) infusion (premix) intravenous, As needed, Starting on Fri02/10/24 at 0931, Anesthesia Intra-op Given 02/10/2024 9:31 AM CDT 40 mcg diphenhydrAMINE (BENADRYL) 50 mg/mL injection intravenous, Administer over 2 Minutes, As needed, Starting on Fri02/10/24 at 0958, Anesthesia Intra-op Given 02/10/2024 9:58 AM CDT 12.5 mg lidocaine (PF) (XYLOCAINE) 20 mg/mL (2 %) preservative free injection intravenous, As needed, Starting on Fri02/10/24 at 0936, Anesthesia Intra-op Given 02/10/2024 9:36 AM CDT 60 mg ondansetron (ZOFRAN) injection intravenous, Administer over 2 Minutes, As needed, Starting on Fri02/10/24 at 0959, Anesthesia Intra-op Given 02/10/2024 9:59 AM CDT 4 mg phenylephrine (BIORPHEN) 0.5 mg/5 mL (100 mcg/mL) injection intravenous, As needed, Starting on Fri02/10/24 at 0944, Anesthesia Intra-op Given 02/10/2024 10:30 AM CDT 100 mcg Given 02/10/2024 10:20 AM CDT 100 mcg Given 02/10/2024 10:13 AM CDT 100 mcg propofoL (DIPRIVAN) 10 mg/mL IV intravenous, As needed, Starting on Fri02/10/24 at 0936, Anesthesia Intra-op Given 02/10/2024 9:36 AM CDT 120 mg sodium chloride 0.9% infusion 30 mL/hr, intravenous, Continuous, Starting on Fri02/10/24 at 0930, Pre-Op Restarted 02/10/2024 9:31 AM CDT New Bag 02/10/2024 9:25 AM CDT 30 mL/hr 30 mL/hr documented in this encounter Care Teams Hide Curer Relationship Specialty Start Date End Date Lalito England MD [address] [place] [id number] PCP - General 08/03/19 documented as of this encounter
--- OUTSIDE RECORDS SUMMARY | 2024-07-11 22:34 | XMS_ITS | Encounter Summary ---
Author Organization [facility] Address [address] [place] [address] Phone Care Team Providers Care Certified Pharmacist Assistant Name Role Phone Lalito England MD Primary Care Provider [phone] Reason for Visit * Reason Comments Post-op * Consultation (Routine) - Authorized Specialty Diagnoses / Procedures Referred By Giuliana boone Referred To Contact Plastic Surgery Diagnoses 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 (HCC) Lalito England MD [address] [place] [address] Phone: tel: fax: Mark Pickett MD [address] [facility] [phone] [place] [address] Phone: tel: fax: Referral ID Status Reason Start Date Expiration Date Visits Requested Visits Authorized [id number] Authorized Specialty Services Required 10/27/2023 10/27/2024 12 12 Encounter Details Date Type Department Care Team (Late st Contact Info) Description 03/24/2024 12:45 PM CDT Office Visit [facility] Surgery [address] [place] [address] [address] [place] [id number] Mark Pickett MD [address] [facility] [phone] [place] [address] Melanoma of right upper arm (HCC) (Primary Dx) Social History Tobacco Use Types Packs/Day Years Used Date Smoking Tobacco: Never Passive Smoke Exposure: Past Smokeless Tobacco: Never Alcohol Use Standard Drinks/Week Comments Yes 0 (1 standard drink = 0.6 oz pur e alcohol) occasional [facility] Utilities Answer Date Recorded In [...] often do you attend chur ch or yarsanism services? 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 She is now 6 wks s/p WLE Melanoma R shoulder. Overall doing well No pain No f/c No drainage No issues with movement. O: There were no vitals taken for this visit. Gen: NAD, A&O x3 R arm: incision well healed with minimal scarring. No evidence of infection. FROM. No axillary adenopathy Path: melanoma with thickness of 1.5 mm, +ulceration, mitosis 3/mm A/P: 73 y.o. female 6 wks s/p WLE Melanoma R shoulder. Discussed findings at length. Patient is 6 weeks status post wide excision of melanoma of the right shoulder. She has healed very well from this. We discussed her pathology result at length. Her updated Breslow thickness is now 1.5 mm. Ulceration was also noted as well. We discussed the implications of this as it pertains to possible lymph node involvement. Recommend sentinel lymph node biopsy. I also explained the management of the lymph node basins as it pertains to the pathophysiology of melanoma. Based on the Breslow depth noted on the above biopsy, I do recommend she undergo sentinel lymph node biopsy. I will have the patient undergo pre-operative lymphoscintigraphy to help identify the sentinel lymph node. I explained that the results of the lymphoscintigraphy do not indicate the presence or absence of lymphatic metastasis, but simply identifies the node in question. I explainedthat the results of the biopsy, if indicated, will help with staging and overall treatment guidance. I described the risks and rationale of surgical treatment, including, but not limited to, bleeding,infection, pain, scarring, injury to surrounding structure, numbness, weakness, stiffness, lymphedema, inability to locate lymph, and need for further surgery. All questions were answered. The patient verbalized understanding and wished to proceed. We will plan to proceed with right axillary sentinel lymph node biopsy. This will be done in the [facility]. We will schedule accordingly. Pt may call back with any questions or concerns in the interim. Follow up: surgery Restriction: none I spent 20 minutes on this patient encounter which included review of medical records. Over half the time was spent with the patient face to face discussing the treatment plan, counseling and coordinating care. Mark Pickett MD 04/05/24 9:55 AM This document was transcribed using voice recognition software without a human cork grinder. Itmay contain typographical, grammatical, and/or syntax errors. documented in this encounter Plan of Treatment Not on file documented as of this encounter Visit Diagnoses Diagnosis Melanoma of right upper arm (HCC)- Primary documented in this encounter Care Teams Certified Pharmacist Assistant Relationship Specialty Start Date End Date Lalito England MD [address] [place] [address] PCP - General 08/03/19 documented as of this encounter
--- OUTSIDE RECORDS SUMMARY | 2024-07-11 22:34 | XMS_ITS | Encounter Summary ---
Author Organization [facility] Healthcare Address [address] [place] [address] Care Team Providers Care Geothermal Hvac Technician Name Role Phone Lalito England MD Primary Care Provider [phone] Parvin Whelan RN Unavailable [phone] Reason for Visit * Reason Onset Date Comments Additional Services Or Orders 01/13/2024 Encounter Details Date Type Department Care Team (Late st Contact Info) Description 01/13/2024 Telephone Family Phys[facility] [address] [place] [address] Lalito England MD [address] [place] [address] Additional Services Or Orders Social History Tobacco Use Types Packs/Day Years [...] a group home (including now)? No 07/16/2022 Personal Safety Answer Date Recorded Have you ever been in or are you currently in a harmful physical or emotional relationship or is someone making you feel afraid or unsafe? 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 So she will think about what she needs and will call back at a later time. Does message need to be routed? Yes-FYI Only * Telephone Encounter - Rosalie Nation RN - 01/13/2024 9:55 AM CDT LMOVM requesting call back. Insurance will only authorize one mobility assistive device at a time. Patient will only qualify for a wheelchair if her mobility issues cannot be adequately resolved with an appropriately fitted cane or walker (Rollator). If she is approved for a Rollator, but still wants a wheelchair, then the order for the wheelchair will have to be submitted on a different date. If patient is unsure which DME provider she would like to receive her chosen piece of equipment from, she will need to call the number on the back of her insurance card to get the names of DME providers in-network. Once she has chosen a DME provider, she will need to contact the office with the name and fax number so the order can be faxed. * Telephone Encounter - Liz Field - 01/13/2024 9:34 AM CDT Additional Services or Orders Type of Service Requested:Equipment Reason for Request (e.g. condition/symptom, date of COVID exposure if applicable): Radha carey nurse from [facility] stated she was with the patient and she is needing a walker as the one she has is borrowed. Rolator Walker with Wheels, Seat and Basket. Patient also needing a new wheelchair as she has never been fitted for one. Details Regarding Additional Services (e.g. type of home health, type of equipment, type of test, etc.): Rolator Walker with wheels, seat & basket and Wheelchair Where will services be performed? (if outside of the practice, facility name, address, phone/fax offacility): didn't give a supply place name Additional Comments: please advise and give patient call back at #[phone] Does message need to be routed? Yes-Action Needed documented in this encounter Plan of Treatment Not on file documented as of this encounter Visit Diagnoses Not on filedocumented in this encounter Care Teams Geothermal Hvac Technician Relationship Specialty Start Date End Date Lalito England MD [address] [place] [address] PCP - General 08/03/19 Parvin Whelan RN [address] [place] [address] DR HARDY [address] [place] [address] Exploration Driller 12/19/23 01/18/24 documented as of this encounter
--- OUTSIDE RECORDS SUMMARY | 2024-07-11 22:34 | XMS_ITS | Encounter Summary ---
Author Organization [facility] Healthcare Address [address] [place] [address] Care Team Providers Care Fruit Trimmer Name Role Phone Lalito England MD Primary Care Provider [phone] Parvin Whelan RN Unavailable [phone] Reason for Referral * Diagnostic Imaging (Routine) - Closed Specialty Diagnoses / Procedures Referred By Contac t Referred To Contact Diagnoses Degenerative cervical spinal stenosis Procedures XR Spine Cervical 2 or 3 Views Brennan Castillo MD [address] [place] [address] Phone: tel: fax: [place] [address] [place] [address] Referral ID Status Reason Start Date Expiration Date Visits Re quested Visits Authorized [id number] Closed 12/26/2023 01/24/2025 1 1 Reason for Visit * Diagnostic Imaging (Routine) - Closed Specialty Diagnoses / Procedures Referred By Contac t Referred To Contact Diagnoses Degenerative cervical spinal stenosis Procedures XR Spine Cervical 2 or 3 Views Brennan Castillo MD [address] [place] [address] Phone: tel: fax: [place] [address] [place] [address] Referral ID Status Reason Start Date Expiration Date Visits Re quested Visits Authorized [id number] Closed 12/26/2023 01/24/2025 1 1 Encounter Details Date Type Department Care Team (Latest Contact Info) Description 01/07/2024 11:54 AM CDT - 01/07/2024 11:59 PM CDT Hospital Encounter [id number] [address] [facility] [address] [place] [address] Degenerative cervical spinal stenosis Discharge Disposition: Discharge [...] in a long-term (including now)? No 07/16/2022 Personal Safety Answer Date Recorded Have you ever been in or are you currently in a harmful physical or emotional relationship or is someone making you feel afraid or unsafe? 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 Gender Identity Not on file Sexual Orientation Not on file documented as of this encounter Medications at Time of Discharge acetaminophen 500 mg capsule Take 2 capsules (1,000 mg total) by mouth every 6 (six) hours 12/04/2023 albuterol HFA (PROVENTIL HFA,VENTOLIN HFA,PROAIR HFA) 90 mcg/actuation inhaler Inhale 2 puffs every 6 (six) hours as needed for wheezing apixaban (ELIQUIS) 5 mg tablet Take 1 tablet (5 mg total) by mouth 2 (two) times a day Do not restart eliquis until two weeks after surgery (12/07) 12/08/2023 aspirin 81 mg enteric coated tabletIndicatio ns:prevention of thrombosis Take 1 tablet (81 mg total) by mouth it disaster recovery manager before breakfast Do not restart until 2 weeks after surgery (12/07) 12/08/2023 blood glucose diagnostic (Contour Next Test Strips) strip TEST BLOOD SUGAR 3 TIMES A DAY AND WILL MONTIOR RESPONSE. DX: E11.22. 200 strip 1 09/11/2023 blood-glucose meter (CONTOUR NEXT USB METER) misc test as directed 1 each 0 07/04/2014 cloNIDine (CATAPRES) 0.1 mg tabletIndicatio ns:Hypertension associated with type 2 diabetes mellitus (HCC) TAKE 1/2 TABLET BY MOUTH TWICE DAILY FOR HYPERTENSION 90 tablet 6 06/12/2023 docusate sodium (COLACE) 100 mg capsule Take 1 capsule (100 mg total) by mouth 3 (three) times a day as needed for constipation finasteride (PROSCAR) 5 mg tablet Take 1 tablet (5 mg total) by mouth daily Has not started 10/24/2023 fluticasone propionate (FLOVENT HFA) 110 mcg/actuation inhaler INHALE 2 PUFFS EVERY MORNING 01/20/2024 insulin aspart (NovoLOG) 100 unit/mL (3 mL) pen for injectionIndica tions:Controlle d type 2 diabetes mellitus with diabetic polyneuropathy, without long-term current use of insulin (HCC) Inject 15 Units under the skin 3 (three) times a day before meals 84 mL 2 04/14/2023 lancets (MICROLET LANCET) misc test by fingerstick route 3 times daily 300 each 3 07/26/2015 montelukast (SINGULAIR) 10 mg tablet TAKE 1 TABLET BY MOUTH AT BEDTIME FOR ALLERGIES 90 tablet 5 06/12/2023 naloxone (NARCAN) 4 mg/actuation spray,non-aeros ol Administer 1 spray into affected nostril(s) as needed for opioid reversal 1 each 12/28/2021 SEMGLEE-yfgn 100 unit/mL (3 mL) pen for injection Inject 20 Units under the skin nightly 10/22/2023 senna-docusate (PERICOLACE) 8.6-50 mgIndications:c onstipation Take 2 tablets by mouth 2 (two) times a day 12/04/2023 simvastatin (ZOCOR) 40 mg tabletIndicatio ns:Controlled type 2 diabetes mellitus with diabetic polyneuropathy, without long-term current use of insulin (HCC) TAKE 1 TABLET BY MOUTH AT BEDTIME 90 tablet 5 06/12/2023 triamcinolone (KENALOG) 0.1 % cream Apply topically legs 10/24/2023 cephalexin (KEFLEX) 500 mg capsule Take 1 capsule (500 mg total) by mouth 2 (two) times a day for 10 days 20 capsule 02/10/2024 4 calcium carbonate-vitam in D3 500 mg(1,250mg) -400 unit tablet Take one by mouth two times per day 0 0 08/10/2007 4 fluticasone propionate (FLONASE) 50 mcg/actuation nasal sprayIndication s:Seasonal allergic rhinitis due to pollen SPRAY 2 SPRAYS INTO EACH NOSTRIL EVERY DAY 48 mL 1 08/14/2023 4 furosemide (LASIX) 20 mg tablet Take 2 tablets (40 mg total) by mouth daily 180 tablet 4 10/23/2022 4 gabapentin (NEURONTIN) 100 mg capsule Take 1 capsule (100 mg total) by mouth 4 (four) times a day 360 capsule 1 12/29/2023 4 HYDROcodone-lisa taminophen (NORCO) 5-325 mg per tabletIndicatio ns:Pain Take 1 tablet by mouth every 6 (six) hours as needed 4 losartan (COZAAR) 25 mg tablet Take 0.5 tablets (12.5 mg total) by mouth daily Patient has not started yet, wanted to talk to drRamo 12/17/2023 4 methocarbamoL (ROBAXIN) 500 mg tablet Take 1 tablet (500 mg total) by mouth 3 (three) times a day 12/04/2023 4 Nyamyc powder Apply topically it disaster recovery manager before breakfast 10/22/2023 4 omeprazole (PriLOSEC) 20 mg capsule TAKE 1 CAPSUEL BY MOUTH TWICE DAILY FOR GERD 180 capsule 5 03/25/2023 4 pen needle, diabetic (BD Ultra-Fine Mini Pen Needle) 31 gauge x 3/16 needle 1 needle as directed 300 each 3 07/24/2022 4 polyethylene glycol (MIRALAX) 17 gram/dose powder Take 17 g by mouth daily 850 g 1 07/24/2022 4 semaglutide (Ozempic) 2 mg/dose (8 mg/3 mL) pen injector injection INJECT 2 MG SUBCUTANEOUSLY ONE TIME PER WEEK 2 mL 3 09/15/2023 4 documented as of this encounter Discharge Disposition Disposition Code Departure Means Destination Discharge to home or self care documented in this encounter Plan of Treatment Not on file documented as of this encounter Procedures Procedure Name Priority Date/Time Associated Diagnosis Comments XR SPINE CERVICAL 2 OR 3 VIEWS Schedule Routine, Read Routine (OP Routine) 01/07/2024 12:07 PM CDT Degenerative cervical spinal stenosis documented in this encounter Results * XR Spine Cervical 2 or 3 Views (01/07/2024 12:07 PM CDT) Anatomical Region Laterality Modality Spine N/A Computed Radiogr aphy 01/07/2024 12:1 5 PM CDT Impressions 01/07/2024 12:15 PM CDT 1. ??Drain removal; unchanged C5-T2 posterior instrumented fusion with posterior decompression. 2. ??Unchanged solid noninstrumented anterior fusion of C3-C7. Electronically signed by: Cory Coulter M.D. Narrative 01/07/2024 12:15 PM CDT EXAMINATION: XR SPINE CERVICAL 2 OR 3 VIEWS HISTORY: Cervical spondylosis FINDINGS: 3 view examination of the cervical spine is compared with a study from 11/26/2023. ??The posterior drain has been removed. ??There is unchanged posterior decompression and instrumented fusion of C5-T2 with intact instrumentation and posterior bone graft. ??There is unchanged prior anterior instrumented fusion from C3-C7 without instrumentation. ??There is no fracture. ??There is unchanged anterolisthesis at C7-T1. Procedure Note Cory Coulter MD - 01/07/2024 EXAMINATION: XR SPINE CERVICAL 2 OR 3 VIEWS HISTORY: Cervical spondylosis FINDINGS: 3 view examination of the cervical spine is compared with a study from 11/26/2023. The posterior drain has been removed. There is unchanged posterior decompression and instrumented fusion of C5-T2 with intact instrumentation and posterior bone graft. There is unchanged prior anterior instrumented fusion from C3-C7 without instrumentation. There is no fracture. There is unchanged anterolisthesis at C7-T1. IMPRESSION: 1. Drain removal; unchanged C5-T2 posterior instrumented fusion with posterior decompression. 2. Unchanged solid noninstrumented anterior fusion of C3-C7. Electronically signed by: Cory Coulter M.D. Brennan Castillo MD IMG XR PROCEDURES Final Result documented in this encounter Visit Diagnoses Diagnosis Degenerative cervical spinal stenosis Spinal stenosis in cervical region documented in this encounter Care Teams Fruit Trimmer Relationship Specialty Start Date End Date Lalito England MD [address] [place] [address] PCP - General 08/03/19 Parvin Whelan RN [address] [place] [address] DR HARDY [address] [place] [id number] Senior Clinical Project Manager 12/19/23 01/18/24 documented as of this encounter
--- OUTSIDE RECORDS SUMMARY | 2024-07-11 22:34 | XMS_ITS | Encounter Summary ---
Author Organization [facility] Address [address] [facility] [address] [place] [address] Phone Care Team Providers Care Planer Mill Grader Name Role Phone Lalito England MD Primary Care Provider [phone] Reason for Visit * Reason Comments Post-op * Consultation (Routine) - Authorized Specialty Diagnoses / Procedures Referred By Giuliana boone Referred To Contact Plastic Surgery Diagnoses 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 (HCC) Lalito England MD [address] [place] [address] Phone: tel: fax: Mark Pickett MD [address] [facility] [phone] [place] [address] Phone: tel: fax: Referral ID Status Reason Start Date Expiration Date Visits Requested Visits Authorized [id number] Authorized Specialty Services Required 10/27/2023 10/27/2024 12 12 Encounter Details Date Type Department Care Team (Late st Contact Info) Description 02/24/2024 11:30 AM CDT Office Visit [facility] [address] [facility] [address] [place] [phone] Irma Mittal NP [address] [place] [address] [address] [place] [address] Melanoma of right upper arm (HCC) (Primary [...] often do you attend chur ch or judaism services? 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 Plastic & Reconstructive Surgery Progress Note Date of Surgery: 02/10/24 Surgery: WLE melanoma right shoulder S: No acute issues since surgery. She denies pain, fever, chills or drainage from surgical site. O: There were no vitals taken for this visit. Gen: NAD, A&O x3 Surgical incision remains intact, clean, dry, without erythema or exudate. I do not appreciate hematoma/seroma. There is no evidence of residual lesion. Surgical incision remained well approximated after suture tails were removed. She has positive sensation surrounding surgical incision REVIEW OF LABORATORY AND RADIOGRAPHIC STUDIES: Biopsy results still pending. A/P: 73 y.o. female is now 2 weeks status post excision of melanoma of her right shoulder. Overall the patient is healing well. Pathology still pending outside consultation. The incision is healing well. There is no evidence of infection. Suture tails were trimmed today. I discussed the stages of wound healing and explained the scar will take 6 months to 1 year to fully mature. I recommended to start using Vaseline or Aquaphor, performing scar massage, and applying sun screen if outside. I assured her that she will be contacted of biopsy results once final pathology has been reported. The patient verbalized understanding and agreement with this plan. All questions were answered and she was encouraged to contact the office with further questions or concerns prior to the next appointment. Follow up: 6 week post op Restriction: slowly return to activity as tolerated Post Op Irma Mittal NP 02/23/24 6:00 PM This document was transcribed using voice recognition software without a human coat checker. Itmay contain typographical, grammatical, and/or syntax errors. documented in this encounter Plan of Treatment Not on file documented as of this encounter Visit Diagnoses Diagnosis Melanoma of right upper arm (HCC)- Primary documented in this encounter Care Teams Planer Mill Grader Relationship Specialty Start Date End Date Lalito England MD [address] [place] [address] PCP - General 08/03/19 documented as of this encounter
--- OUTSIDE RECORDS SUMMARY | 2024-07-11 22:34 | XMS_ITS | Encounter Summary ---
Author Organization [facility] Healthcare Address [address] [place] [address] Care Team Providers Care Laundry Route Driver Name Role Phone Lalito England MD Primary Care Provider [phone] Encounter Details Date Type Department Care Team (Late st Contact Info) Description 01/20/2024 Telephone [facility] [address] [facility] [place] [address] Lalito England MD [address] [place] [address] Social History Tobacco Use Types Packs/Day Years Used Date Smoking Tobacco: Never Passive Smoke Exposure: Past Smokeless Tobacco: Never Alcohol Use Standard Drinks/Week Comments Yes 0 (1 standard drink = 0.6 oz pur e alcohol) occasional [facility] Utilities Answer Date Recorded In the past 12 months has [employer], gas, oil, or water [employer] threatened to shut off services in your [...] How often do you attend chur or yarsanism services? Never 01/19/2024 Do you belong to any clubs o r organizations such as anabaptism groups, unions, fraternal or athletic groups, or [...] place to sleep or slept in a custodial (including now)? No 07/16/2022 Housing Stability Vital Sign Answer Albaro e Recorded In the last 12 months, was t here a time when you were not able to pay the mortgage or rent on time? No 01/19/2024 In the past 12 months, how m any times have you moved where you were living? 0 01/19/2024 At any time in the past 12 m [facility], were you homeless or living in a custodial (including now)? No 01/19/2024 Personal Safety Answer Date Recorded Have you ever been in or are you currently in a harmful physical or emotional relationship or is someone making you feel afraid or unsafe? 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 England and faxed to the company. Still waiting on decision from the Eliquis form. * Telephone Encounter - Leatha Stevens CMA - 01/20/2024 3:43 PM CDT Received paper from [facility] [employer] social work associate Vielka, and helping patient get help with Eliquis and Ozempic. Called patient to make sure this was legit and they stated it was. Will forward paperwork for provider to sign. Will fax forms once signed to appropriate companies. Will ask provider if willing to fill out the Eliquis paperwork since another provider ordered that medication. Dr. England please advise on Eliquis form. Thank you documented in this encounter Plan of Treatment Not on file documented as of this encounter Visit Diagnoses Not on filedocumented in this encounter Care Teams Laundry Route Driver Relationship Specialty Start Date End [place] [address] PCP - General 08/03/19 documented as of this encounter
--- OUTSIDE RECORDS SUMMARY | 2024-07-11 22:34 | XMS_ITS | Encounter Summary ---
Author Organization [facility] Healthcare Address [address] [place] [address] Care Team Providers Care Station Worker Name Role Phone Lalito England MD Primary Care Provider [phone] Reason for Referral * Home Health (Routine) - Canceled Specialty Diagnoses / Procedures Referred By Giuliana boone Referred To Contact Home Health Services Diagnoses Gait instability Lalito England MD [address] [place] [address] Phone: tel: fax: [facility] Referral ID Status Reason Start Date Expiration Date Visits Requested Visits Authorized [id number] Canceled Specialty Services Required 02/03/2024 03/04/2025 1 1 Question [facility] Primary disciplines requested: Physical Therapy [...] st Contact Info) Description 02/03/2024 Orders Only [facility] Primary Care at [address] [address] Lalito England MD [address] [place] [address] Gait instability (Primary Dx) Social History Tobacco Use Types Packs/Day Years Used Date Smoking Tobacco: Never Passive Smoke Exposure: Past Smokeless Tobacco: Never Alcohol Use Standard Drinks/Week Comments Yes 0 (1 standard drink = 0.6 oz pur e alcohol) occasional [facility] Utilities Answer Date Recorded In the past 12 months has [employer], gas, oil, or water [employer] threatened to shut off services in your [...] you attend [facility] or [employer] services? 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 [employer] Gender Identity Not on file Sexual Orientation Not on file documented as of this encounter Plan of Treatment Scheduled Referrals Name Type Priority Associated Diagnoses Order Schedule Ambulatory referral to Home Health Outpatient Referral Routine Gait instability 1 Occurrences starting 02/03/2024 until 08/05/2024 documented as of this encounter Visit Diagnoses Diagnosis Gait instability- Primary Abnormality of gait documented in this encounter Care Teams Station Worker Relationship Specialty Start Date End Date Lalito England MD [address] [place] [address] PCP - General 08/03/19 documented as of this encounter
--- OUTSIDE RECORDS SUMMARY | 2024-07-11 22:34 | XMS_ITS | Encounter Summary ---
Author Organization [facility] Healthcare Address [address] [place] [address] Care Team Providers Care Sales Development Director Name Role Phone Lalito England MD Primary Care Provider [phone] Reason for Visit * Auth/Cert (Routine) Specialty Diagnoses / Procedures Referred By Contac t Referred To Contact Diagnoses 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) [C43.61] Procedures CO DESTRUCTION MAL LESION TRUNK/ARM/LEG 1.1-2.0CM CO ADJT/REARRGMT SCALP/ARM/LEG 10.1-30.0 SQ CM WIDE EXCISION MELANOMA RIGHT SHOULDER ; ADJACENT TISSUE TRANSFER (GENERAL, 1% LIDO WITH EPI) Referral ID Status Reason Start Date Expiration Date Visits Re quested Visits Authorized [id number] 1 1 Encounter Details Date Type Department Care Team (Late st Contact Info) Description 02/10/2024 9:30 AM CDT - 02/10/2024 10:45 AM CDT Surgery [facility] Operating Room [address] [place] [address] Mark Pickett MD [address] [id number] [place] [address] WIDE EXCISION MELANOMA RIGHT SHOULDER WITH COMPLEX REPAIR Surgery Details Date/Time Status Location OR Service Patient Class Case Cl ass Case Type Trauma Case? 02/10/2024 9:30 AM Posted [facility] OPERATING ROOM OR Plastics Outpatient Elective Panel 1 Procedure LRB Anes Op Region Wound Class Comments WIDE EXCISION MELANOMA RIGHT SHOULDER WITH COMPLEX REPAIR Right General Shoulder Class I - Cl marcelo Surgeon Surgeon Role Service Panel Mark Pickett MD Primary Plastics 1 Special Needs GENERAL, 1% LIDO WITH EPI< documented in this encounter Social History Tobacco Use Types Packs/Day Years Used Date Smoking Tobacco: Never Passive Smoke Exposure: Past Smokeless Tobacco: Never Alcohol Use Standard Drinks/Week Comments Yes 0 (1 standard drink = 0.6 oz pur e alcohol) occasional [facility] Utilities Answer Date Recorded In the past 12 months has [employer], gas, oil, or water [employer] threatened to shut off services in your [...] often do you attend chur ch or islam services? Never 01/19/2024 Do you belong to [...] any time in the past 12 m 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 Gender Identity Not on file Sexual Orientation Not on file documented as of this encounter Last Filed Vital Signs Vital Sign Reading Time Taken Comments Blood Pressure 110/54 02/10/2024 10:45 AM CDT Pulse 71 02/10/2024 10:45 AM CDT Temperature 36.4 ??C (97.5 ??F) 02/10/2024 1 0:36 AM CDT Respiratory Rate 12 02/10/2024 10:4 5 AM CDT Oxygen Saturation 100% 02/10/2024 10: 45 AM CDT Inhaled Oxygen Concentration - - Weight 96.1 kg (211 lb 13.8 oz) 02/10/2024 8:52 AM CDT Height 167.6 cm (5' 6 ) 02/10/2024 8:52 AM CDT Body Mass Index 34.2 02/10/2024 8:52 AM CDT documented in this encounter Discharge Instructions * Attachments The following attachments cannot be sent through Care Everywhere. * Care After General Anesthesia (Discharge Care) (Sudanese) * Cephalexin (By mouth) (Sudanese) documented in this encounter Medications at Time [...] 1 tablet (81 mg total) by mouth vocational psychologist before breakfast Do not restart until 2 [...] 3 times daily 300 each 3 07/26/2015 losartan (COZAAR) 25 mg tablet Take 0.5 tablets (12.5 mg total) by mouth daily Patient has not started yet, wanted to talk to 90 tablet 01/22/2024 montelukast (SINGULAIR) 10 mg tablet TAKE 1 TABLET BY MOUTH AT BEDTIME FOR ALLERGIES 90 tablet 5 06/12/2023 naloxone (NARCAN) 4 mg/actuation spray,non-aeros ol Administer 1 spray into affected nostril(s) as needed for opioid reversal 1 each 12/28/2021 pen needle, diabetic (BD Ultra-Fine Mini Pen Needle) 31 gauge x 3/16 needle 1 NEEDLE DIRECTED (4 PER DAY) 300 each 3 01/09/2024 SEMGLEE-yfgn 100 unit/mL (3 mL) pen for [...] times per day 0 0 08/10/2007 4 furosemide (LASIX) 20 mg tablet Take [...] hours as needed for pain 60 tablet 01/19/2024 4 methocarbamoL (ROBAXIN) 500 mg tablet Take 1 tablet (500 mg total) by mouth 3 (three) times a day 12/04/2023 4 Nyamyc powder Apply topically vocational psychologist before breakfast 10/22/2023 4 omeprazole (PriLOSEC) 20 mg capsule TAKE 1 CAPSUEL BY MOUTH TWICE DAILY FOR GERD 180 capsule 5 03/25/2023 4 polyethylene glycol (MIRALAX) 17 gram/dose powder Take 17 g by mouth daily 850 g 1 07/24/2022 4 semaglutide (Ozempic) 2 mg/dose (8 mg/3 mL) pen injector injection INJECT 2 MG SUBCUTANEOUSLY ONE TIME PER WEEK 2 mL 3 09/15/2023 4 documented as of this encounter Ordered Prescriptions Prescription Sig Dispense Quantity Refills Last Filled Start Date End Date cephalexin (KEFLEX) 500 mg capsule Take 1 capsule (500 mg total) by mouth 2 (two) times a day for 10 days 20 capsule 02/10/2024 4 documented in this encounter Discharge Disposition Disposition Code Departure Means Destination Comment s Discharge to home or self care documented in this encounter H&P Notes * Mark Pickett MD - 02/10/2024 9:16 AM CDT I have reviewed the H&P, examined the patient, and endorse the findings as written. Plan of Care : Based on the above findings, I consider Criss Ly to be an acceptable risk for : Procedure(s): WIDE EXCISION MELANOMA RIGHT SHOULDER ADJACENT TISSUE TRANSFER (GENERAL, 1% LIDO WITH EPI) Site marked. Consent signed and in chart. To OR for WLE Melanoma R shoulder. Mark Pickett MD 02/10/24 9:17 AM Source Note - Naseem Jeff MD - 02/09/2024 9:49 AM CDT Images from the original note were not included. Anesthesia Evaluation Criss Ly is a 73 y.o. female WIDE EXCISION MELANOMA RIGHT SHOULDER ADJACENT TISSUE TRANSFER (GENERAL, 1% LIDO WITH EPI) (Right: Shoulder) Pre-Op Diagnosis Codes: * 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 (HCC) [C43.61] HISTORY Past Medical History Information obtained [...] hyperglycemia, with long-term current use of insulin (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) ([facility]) 01/06/2024 Secondary hyperparathyroidism of renal origin ([facility]) 01/06/2024 Cervical stenosis of spine 11/24/2023 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 (HCC) 11/10/2023 Melanoma of right upper arm (HCC) 10/27/2023 BMI 39.0-39.9,adult 10/05/2023 Chronic anticoagulation 10/05/2023 Family history of colon cancer in father 05/27/2023 Encounter for screening colonoscopy 05/27/2023 Personal history of COVID-19 02/18/2022 Acute embolism and thrombosis of right femoral vein (HCC) 01/18/2022 Age-related osteoporosis without current pathological fracture 01/18/2022 Difficulty in walking, not elsewhere classified 01/18/2022 Gastro-esophageal reflux disease without esophagitis 01/18/2022 Hypertension secondary to endocrine disorders 01/18/2022 Spinal stenosis, lumbar region without neurogenic claudication 01/18/2022 Type 2 diabetes mellitus with diabetic neuropathy, unspecified ([facility]) 01/18/2022 Unsteadiness on feet 01/18/2022 Type 2 diabetes mellitus with hyperlipidemia ([facility]) 01/17/2022 Chronic back pain 01/17/2022 Weakness of both lower extremities 01/16/2022 Lumbar radiculopathy 12/06/2021 Sacroiliitis ([facility]) 09/07/2021 Cervicalgia 09/07/2021 Low back pain 09/07/2021 Insomnia secondary to chronic pain 09/07/2021 Degenerative cervical spinal stenosis 09/07/2021 Degenerative disc disease, cervical 09/07/2021 CKD (chronic kidney disease) stage 4, GFR 15-29 ml/min ([facility]) ([facility]) 08/23/2021 Morbid (severe) obesity due to excess calories ([facility]) 08/22/2021 DDD (degenerative disc disease), lumbar 08/17/2021 Degenerative lumbar spinal stenosis 08/17/2021 Lumbar post-laminectomy syndrome 08/17/2021 Persistent vomiting 11/17/2018 Hx of colonic polyps 09/04/2018 Family hx of colon cancer 09/04/2018 Healthcare maintenance 12/27/2016 Medication management 12/27/2016 Idiopathic osteoporosis with pathological fracture 08/14/2015 Arthralgia of hip 07/21/2015 Adenomatous polyp of colon 04/08/2015 Sarcoidosis of lung ([facility]) 04/08/2015 Fever 08/25/2014 Type 2 diabetes mellitus with stage 3 chronic kidney disease, with long-term current use of insulin([facility]) 11/27/2013 Severe obesity (BMI 35.0-39.9) with comorbidity ([facility]) 11/27/2013 Hyperlipidemia 04/01/2012 Disorder of peripheral nervous system (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 2007.; Comments: [facility] 07/25/2015 - HX OTHER MEDICAL Breast reduction 2008.; Comments: [facility] 07/25/2015 - HX OTHER MEDICAL left hip and leg surgery HX OTHER MEDICAL conversion of previous hip arthroplasty left hip; Comments: [facility] TCU unit 02/06 - 02/17/16 for rehabilitation. Hyperlipidemia Hyperlipidemia Hypertension Hypertension Lumbar stenosis Osteoarthritis Osteoarthritis Osteoporosis Polyp of colon colon polyps Sarcoidosis Sarcoidosis Type 2 diabetes mellitus (HCC) Diabetes type 2 Type 2 diabetes mellitus with diabetic autonomic (poly)neuropathy (HCC) Type 2 diabetes mellitus with hyperglycemia (CMS/HCC) (HCC) Type II diabetes mellitus with stage 3 chronic kidney disease ([facility]) Past Surgical History: Procedure Laterality Date BACK [...] HIP ARTHROPLASTY Left 02/05/2016 Dr. David Sykes, [facility] - conversion of previous hip arthroplasty [...] HFA) 90 mcg/actuation inhaler -- -- -- Sofiya Gibbons MD apixaban (ELIQUIS) 5 mg tablet -- 12/08/23 -- Andi Simmons NP Take 1 tablet (5 mg total) by mouth 2 (two) times a day Do not restart eliquis until two weeks after surgery (12/07) aspirin 81 mg enteric coated tablet -- 12/08/23 -- Andi Simmons NP Take 1 tablet (81 mg total) by mouth vocational psychologist before breakfast Do not restart until 2 weeks after surgery (12/07) blood glucose diagnostic (Contour Next Test Strips) strip -- 09/11/23 -- Lalito England MD TEST BLOOD SUGAR 3 TIMES A DAY AND WILL MONTIOR RESPONSE. DX: E11.22. blood-glucose meter (CONTOUR NEXT USB METER) [facility] -- 07/04/14 -- Clayton Sandoval MD test as directed calcium carbonate-vitamin D3 500 mg(1,250mg) -400 unit tablet -- 08/10/07 -- Clayton Sandoval MD Take one [...] (LASIX) 20 mg tablet -- 10/23/22 02/09/24 Laliot England MD Take 2 tablets (40 mg [...] a day before meals lancets (MICROLET LANCET) [facility] -- 07/26/15 -- Clayton Sandoval MD test [...] on 02/09/2024 Nyamyc powder -- 10/22/23 -- Sofiya Gibbons MD omeprazole (PriLOSEC) 20 mg capsule -- [...] mg under the skin once a week mondays SEMGLEE-yfgn 100 unit/mL (3 mL) pen for injection -- 10/22/23 -- Sofiya Gibbons MD senna-docusate (PERICOLACE) 8.6-50 mg -- 12/04/23 -- Andi Simmons, MARKOS Take 2 [...] Informed Consent: Discussed plan with attending and FLOOR SUPERVISOR. Anesthesia plan and risks discussed with patient. Consent and Attending signature: I and/or my designee have discussed the anesthesia plan, benefits, possible alternatives, parental presence at time of induction (if indicated), and clinically relevant risks that may include dental injury, unintentional awareness, and/or other complications. The patient and/or parent/legal guardian understand, and agree to proceed. All questions answered. documented in this encounter Miscellaneous Notes * Op Note - Mark Pickett MD - 02/10/2024 9:54 AM CDT Plastic, Reconstructive, and Hand Surgery Operative Note Patient: Criss Ly Date of : 1950 Date of Surgery: 02/10/2024 Preoperative Diagnosis: Melanoma Right shoulder Postoperative Diagnosis: Same Procedure Performed: Wide local excision melanoma right shoulder, 4.5 cm Complex repair right arm, 16.7 cm Attending Surgeon: Mark Pickett MD Surgical Team: Surgeons and Role: * Mark Pickett MD - Primary Anesthesia: General LMA Martin Findings: wide excision with 1 cm margin Estimated Blood Loss: 5 mL Drains: none Implants: Nothing was implanted during the procedure Complications: none Specimens: Wide local excision melanoma right shoulder, short proximal, long anterior Indications for Procedure: Criss Ly is a 73 y.o. female who presented to my clinic 3 and half months ago with newly diagnosed melanoma. This lesion was present for 2 years. It would bleed and itch on occasion. Was biopsied by her entry operator with the above-noted diagnosis. I recommended wide local excision. Risks and rationale for this procedure were explained to her at length and she agreed to proceed. Procedure in Detail: The patient was seen in the preoperative holding area and marked in the upright position. After informed consent was obtained, the patient was brought back to the operating room and placed into the supine position. SCDs were not placed to the bilateral lower extremities given poor skin conditions and appropriate padding of pressure points were ensured. After adequate general LMA anesthesia was obtained, patient was then placed in the supine position with arms swaddled, prepped and draped in usual sterile fashion. A time out procedure was then performed, where the patient was properly identified, and there was verification of the procedure to be performed as well as administration of appropriate pre-operative antibiotics. Attention was turned to the right arm. A 2.5 cm lesion was noted within the right posterolateral shoulder. A 1 cm margin was marked out for a total excision diameter of 4.5 cm. There was adequate laxity of the skin and soft tissue in this area and therefore a lenticular excision pattern was marked out. The area was then infiltrated with a solution of 1% lidocaine with epinephrine. A total of 20 mL was utilized. A 15 blade scalpel was then used to incise along the excision margin. Dissection wascarried out through the skin and subcutaneous tissue. The deep fascia was not violated. Full-thickness subcutaneous dissection was then carried out and the lesion was excised without issue. It was marked short stitch proximal and long stitch anterior. It was then passed off the field for permanent sectioning. The wound was inspected and hemostasis was achieved with bipolar cautery. The skin edgeswere then generously undermined with tenotomy scissors to allow for tension-free closure. The woundwas irrigated copiously until the effluent was clear. Hemostasis was excellent. The wound was then reapproximated using 2-0 PDS suture for Jose D's fascia, followed by 3-0 Monocryl in deep dermal fashion, followed by 3-0 Monocryl in running subcuticular fashion. Total length of the repair was 16.7 cm. Needle, instrument, and sponge count was correct at this time. Sterile dressings were applied, consisting of paper tape an island dressing. Patient tolerated the procedure in its entirety without complication and successfully aroused from anesthesia. The patient was transferred to the recovery roomin stable condition and is to be discharged home. I reviewed the intra-op findings with her family. All questions were answered. Post-operative Plan: Stable, to PACU. Discharge to home when criteria met. Follow up: 2 weeks Restrictions: Light activity right arm Attestation of Presence: I was present for the entirety of the procedure. Mark Pickett MD 02/10/24 10:20 AM This document was transcribed using voice recognition software without a human electroneurodiagnostic technologist. Itmay contain typographical, grammatical, and/or syntax errors. * Brief Op Note - Mark Pickett MD - 02/10/2024 9:54 AM CDT Operative Progress Note Surgical Team: Surgeons and Role: * Mark Pickett MD - Primary Anesthesiologist: Naseem Jeff MD FLOOR SUPERVISOR: Kaila Gilliam CRNA Community Development Planner: Candace Enciso RN Scrub: Maty Coles RN; Brandy Garcia LPN GREEN PIPEFITTER: Kassi Denson RN DATE OF SURGERY : 02/10/2024 Preoperative Diagnosis: Pre-op Diagnosis * 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 (HCC) [C43.61] Postoperative Diagnosis: Post-op Diagnosis * 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 (HCC) [C43.61] Procedure(s): Procedure(s) (LRB): WIDE EXCISION MELANOMA RIGHT SHOULDER WITH COMPLEX REPAIR (Right) Operative Findings: Wide excision with 1 cm margin. Estimated Blood Loss: 5 mL Intraoperative Fluids: See anesthesia record Specimens: ID Type Source Tests Collected by Time A : wide local excision melanoma right shoulder Tissue Skin, wide excision SURGICAL PATHOLOGY Mark Pickett MD 02/10/2024 [id number] Implants: Nothing was implanted during the procedure Blood/Blood Products Transfused: 0 mls Complications: None Condition on Discharge from the operating room was stable Mark Pickett MD Date: 02/10/2024 Time: 10:20 AM No Resident involved on case * Perioperative Nursing Note - Beatriz Falcon RN - 02/03/2024 3:38 PM CDT I sent a message to Dr England asking This patient is having a melanoma removed from her shoulder on02/09. How long may she hold her Eliquis and aspirin ? He answered 7 days aspirin. 3 days eliquis Patient informed and verbalized understanding * Perioperative Nursing Note - Beatriz Falcon RN - 02/03/2024 3:31 PM CDT Pre operative instructions reviewed with patient including instructions to hold Ozempic for one week, take Novalog as usual routine through the day prior to surgery and to hold it on the morning of surgery. Patient states that regarding her Semglee that she sometimes holds according to her blood sugar. I instructed her to only take eight percent of her dose which is 16 units if she does take on the evening prior to surgery,. Patient verbalized understanding * Pre-Procedure Instructions - Beatriz Falcon RN - 02/03/2024 3:23 PM CDT [phone] We are pleased that you and your doctor have chosen [facility] for your surgery. We hope that the following information will help make your visit a pleasant one. Surgery Date: 02/10/2024 You will receive a call on 02/09/24 around 3pm with your arrival time Before your surgery: Notify your doctor of [...] any water when you brush your teeth. Do not take your AM insulin dose or any diabetic medicines Take medications as directed Pre-Surgery Instructions: Medication Instructions acetaminophen 500 mg capsule Take as prescribed albuterol HFA (PROVENTIL HFA,VENTOLIN HFA,PROAIR HFA) 90 mcg/actuation inhaler Take as prescribed apixaban (ELIQUIS) 5 mg tablet Stop taking 3 days prior to surgery aspirin 81 mg enteric coated tablet Stop taking 7 days prior to surgery calcium carbonate-vitamin D3 500 mg(1,250mg) -400 unit tablet Stop taking 7 days prior to surgery cloNIDine (CATAPRES) 0.1 mg tablet Take as prescribed docusate sodium (COLACE) 100 mg capsule Take as prescribed finasteride (PROSCAR) 5 mg tablet Take as prescribed fluticasone propionate (FLOVENT HFA) 110 mcg/actuation inhaler Take as prescribed furosemide (LASIX) 20 mg tablet Take as prescribed HYDROcodone-acetaminophen (NORCO) 5-325 mg per tablet Take as prescribed insulin aspart (NovoLOG) 100 unit/mL (3 mL) pen for injection Take as prescribed losartan (COZAAR) 25 mg tablet Take as prescribed methocarbamoL (ROBAXIN) 500 mg tablet Take as prescribed montelukast (SINGULAIR) 10 mg tablet Take as prescribed Nyamyc powder Take as prescribed omeprazole (PriLOSEC) 20 mg capsule Take as prescribed polyethylene glycol (MIRALAX) 17 gram/dose powder Take as prescribed semaglutide (Ozempic) 2 mg/dose (8 mg/3 mL) pen injector injection Stop taking 7 days prior to surgery SEMGLEE-yfgn 100 unit/mL (3 mL) pen for injection Only take 16 units on the evening prior to surgery senna-docusate (PERICOLACE) 8.6-50 mg Take as prescribed simvastatin (ZOCOR) 40 mg tablet Take as prescribed triamcinolone (KENALOG) 0.1 % cream Take as prescribed blood glucose diagnostic (Contour Next Test Strips) strip Take as prescribed blood-glucose meter (CONTOUR NEXT USB METER) misc Take as prescribed gabapentin (NEURONTIN) 100 mg capsule Take as prescribed lancets (MICROLET LANCET) misc Take as prescribed naloxone (NARCAN) 4 mg/actuation spray,non-aerosol Take as prescribed pen needle, diabetic (BD Ultra-Fine Mini Pen Needle) 31 gauge x 3/16 needle Take as prescribed Use no make-up, nail cambodian, lotions, oils or powders on your skin. Wear comfortable clothes that will not be tight in the area of your surgery. Leave all valuables and jewelry (including all body piercing jewelry) at home. If you use a CPAP machine, please bring it with you to wear after your surgery. Please bring your a photo ID and insurance cards with you. Check in at the Registration Desk.downstairs in the Ambulatory Surgery Department. You will come inthe main entrance and go down the [place] until you see the [employer]/coffee shop, there will be elevators to the right, take those down to LL1. You will exist the elevators to the right and go down thehall and you will pass Medical Imaging on the left and we will be the next department on the right,you will see the sign above that says Ambulatory Surgery Department check-in. If you are 17 years old or younger, a parent or guardian must come with you. After your Outpatient Surgery: You must have a responsible adult to drive you home, you will not be allowed to drive or take a cabhome. We recommend you have someone stay with you for 24 hours after your surgery. Questions or concerns: If you have any questions or concerns regarding your procedure, contact your surgeon as soon as possible. If you have questions regarding your Pre-Admission Testing, please call us. We can be reached at the number posted at the top of the page. documented in this encounter Plan of Treatment Not on file documented as of this encounter Procedures Procedure Name Priority Date/Time Associated Diagnosis Comments MISCELLANEOUS LAB TEST Routine 02/10/2024 2:58 PM CDT SURGICAL PATHOLOGY Routine 02/10/2024 1: 55 PM CDT 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 (HCC) POCT GLUCOSE DEVICE Routine 02/10/2024 1 0:39 AM CDT EXCISION MELANOMA - WIDE 02/10/2024 9:31 AM CDT 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 (HCC) Special Needs GENERAL, 1% LIDO WITH EPI< POTASSIUM, WHOLE BLOOD STAT 02/10/2024 9:11 AM CDT POCT GLUCOSE DEVICE Routine 02/10/2024 9 :07 AM CDT documented in this encounter Results * - Miscellaneous Lab Test (02/10/2024 2:58 PM CDT) Pathologist [facility] lab See Comment Comment: See Scanned Report Testing performed by: [facility], [address] [place] [address], [place]., [address] Miscellaneous 02/10/2024 2:5 8 PM CDT 02/19/2024 10:30 AM CDT us Grace Fisher MD LAB BLOOD ORDERABLES Final Re sult [facility] ([place]) [facility] [place] [address] * Surgical pathology (02/10/2024 1:55 PM CDT) Tissue (Skin, wide excision) 02/10/2024 9:57 AM CDT Comment:Short proximal, long anterior Narrative PATHOLOGY [facility] ([place] - 02/16/2024 2:35 PM CDT EPIC results best viewed via link to PDF [facility] Department of Pathology [address] [place] [id number] Note to Patients: This report may contain [...] questions and explain the details. Final Report with Addendum Patient Name: ??CRISS LY Address: ??[address] [place] [address], ??[place], [place] ??[address]- Gender: ??F : ??1950 (Age: 73) Service: ??Surgery Location: ??[facility] Hospital #: ??[id number] Patient Type: ??[facility] Accession # ?[id number] Taken: ??02/10/2024 Received: ??02/10/2024 Accessioned: ??02/10/2024 Reported: ??02/16/2024 Physician(s):Mark Juarez M.D. Diagnosis: A. Right shoulder melanoma, wide local excision- ? Residual melanoma with associated melanoma in-situ ? Associated biopsy changes ? Pending outside consultation ? See microscopic description Grace Fisher M.D. Report Electronically Reviewed and Signed Out By ??Grace Fisher M.D. ??02/16/2024 14:35:49 Procedure/Addenda: Addendum Addendum Comment The external consult report from [facility] ([id number]) has been finalized and is attached. For the solutions architect consultant? ? s comment, please see scanned image of report or the report can be viewed in the Electronic Medical Record of the patient. ??If access to the EMR is not available, please call pathology for a hard copy of the report ([phone]). ?? A. Right shoulder, [id number], 02/10/2024: ? Re-excision of malignant melanoma ([id number]; specimen collection date 09/26/2023) ? Ulceration present, Jett level lV, Breslow thickness 1.5 mm ? Inked margins are free of involvement (see synoptic report and outside comment) Grace Fisher M.D.Report Electronically Reviewed and Signed Out By ??Grace Fisher M.D. ??03/18/2024 15:18:51 ?? Specimen(s) Received: A: Wide local excision melanoma right shoulder, short proximal, long anterior Microscopic Description: Note is made of the patient's outside biopsy material ([facility], [id number]) reporting a malignant melanoma from right posterior shoulder biopsy material measuring at least 0.7 mm in thickness with a vertical growth phase and regression present. Slides are not available for review. ?? The current material demonstrates prominent residual malignant melanoma with adjacent biopsy site changes as well as associated melanoma in-situ somewhat irregular in distribution. ??Surgical margins appear negative however LVI can not be excluded. ??SOX10 IHC stain with appropriate control also reviewed performed on blocks A1- A6 with appropriate control highlights the melanocytic lesion. ??As prior outside biopsy slides are not available for review, because LVI can not be excluded and as the associated in-situ component appears somewhat patchy, this case will be submitted for outside consultation with results to follow in an addendum. Clinical History: 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. ??Wide excision melanoma right shoulder, adjacent tissue transfer. ?? Gross Description: Received in a single formalin filled container labeled with CRISS LY and melanoma right shoulder . It is an ellipse of pale-myers skin oriented with two sutures. ??It measures 13 x 4.0 x 3.0 cm. ??Facing the skin surface with the short designated as 12 o'clock position the long suture falls at the 3 o'clock position. ??The epidermal surface has a brown pigmented lesion with asymmetrical borders measuring 2.2 x 1.8 cm. ??It is located 1 cm from both the 3 and 9 o'clock margins. ??There are no satellite lesions in the surrounding skin is normal in appearance. ??It is not present in the subcutaneous fat and is at least 2.3 cm from the deep margin. ??It is inked with the 12-3-6 o'clock side blue and the 6-9-12 o'clock side black. ??Diesel Engine Ii Pipe Fitter sections are submitted: A1 through A6 entire lesion with 3 and 9 o'clock ??margins A7 deep margin A8 random 12 o'clock A9 random 6 o'clock A10 12 o'clock and 6 o'clock tips (12 o'clock over inked green) Leelee Montgomery R.N., P.A./Grace Fisher M.D. REPORT IMAGES AND SCANNED DOCUMENTS, IF INCLUDED, ONLY VIEWABLE IN PDF VERSION OF REPORT The performance characteristics of some immunohistochemical stains, fluorescence in-situ hybridization tests and immunophenotyping by flow cytometry cited in this report (if any) were determined by the Surgical Pathology Department at [facility] as part of an ongoing design quality engineer program and in compliance with federally mandated [...] characteristics determined by the Surgical Pathology Department [facility]. ??It has not been cleared or approved by the U. S. Food and Drug Administration. Note for decalcified specimens: This assay has not been validated on decalcified tissues. Results should be interpreted with caution given the possibility of false negativity on decalcified specimens Mark Pickett MD LAB PATHOLOGY ORDERA BLES Final Result Performing Organization Address City/[facility]/ZIP Co de Phone Number [facility] ([place]) [address] [place] [address] * POCT glucose (02/10/2024 10:39 AM CDT) Glucose, POC 182 70 - 199 mg/dL Blood 02/10/2024 10:3 9 AM CDT 02/10/2024 10:39 AM CDT Mark Pickett MD LAB POCT ORDERABLES - DEVICE Final Result Performing Organization Address [facility] Co de Phone Number ANN [facility] ([place] 1 [facility] [place] [address] * Potassium, whole blood (02/10/2024 9:11 AM CDT) Potassium, bld 3.7 3.3 - 4.9 mmol/L Comment: Interpretive Data This method is not able to assess for hemolysis, which may falsely increase potassium concentrations. If further testing is needed to evaluate this result, consider in-laboratory plasma potassium. Current Interpretive Data was last revised on 2022. Blood 02/10/2024 9:11 AM CDT 02/10/2024 9:13 AM CDT Keshawn Macias MD LAB BLOOD ORDERABLES Fin al Result Performing Organization Address [facility] Co de Phone Number [facility] ([place]) 1 [facility] [place] [address] * POCT glucose (02/10/2024 9:07 AM CDT) Glucose, POC 185 70 - 199 mg/dL Blood 02/10/2024 9:07 AM CDT 02/10/2024 9:07 AM CDT Mark Pickett MD LAB POCT ORDERABLES - DEVICE Final Result Performing Organization Address [facility] Co de Phone Number ANN [facility] 1 [facility] [place] [address] documented in this encounter Visit Diagnoses Diagnosis 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 (HCC)- Primary 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 (HCC) documented in this encounter Admitting Diagnoses Diagnosis 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 (HCC) documented in this encounter Administered Medications Inactive Administered Medications - up to 3 most recent administrations Medication Order MAR Action Action Date Dose Rate Site lidocaine-EPINEPHrine (XYLOCAINE with EPI) 1 %-1:200,000 preservative free injection As needed, Starting on Fri02/10/24 at 0945, Intra-Op, Indications: Administration of Local AnesthesiaIndications:Adminis tration of Local Anesthesia Given 02/10/2024 9:45 AM CDT 20 mL Surgical Site sodium chloride 0.9% infusion 30 mL/hr, intravenous, Continuous, Starting on Fri02/10/24 at 0930, Pre-Op Restarted 02/10/2024 9:31 AM CDT New Bag 02/10/2024 9:25 AM CDT 30 mL/hr 30 mL/hr sodium chloride 0.9% irrigation As needed, Starting on Fri02/10/24 at 0952, Intra-Op Given 02/10/2024 9:52 AM CDT 500 mL Surgical Site documented in this encounter Discontinued Medications Medication Sig Discontinue Reason Start Date End Da te fluticasone propionate (FLONASE) 50 mcg/actuation nasal sprayIndications:Seasona l allergic rhinitis due to pollen SPRAY 2 SPRAYS INTO EACH NOSTRIL EVERY DAY Duplicate order 08/14/2023 02/03/2024 documented as of this encounter Historical Medications * This list may reflect changes made after this encounter. albuterol HFA (PROVENTIL HFA,VENTOLIN HFA,PROAIR HFA) 90 mcg/actuation inhaler Inhale 2 puffs every 6 (six) hours as needed for wheezing fluticasone propionate (FLOVENT HFA) 110 mcg/actuation inhaler INHALE 2 PUFFS EVERY MORNING 01/20/2024 added in this encounter Active and Recently Administered Medications Times are shown in CDT. Scheduled Medication Order 02/08/2024 02/09/2024 02/10/2024 ceFAZolin (ANCEF) 2,000 mg/20 mL in sterile water (premix) 2,000 mg (COMPLETED) 2,000 mg, intravenous, at 400 mL/hr, Administer over 3 Minutes, Once, On Fri02/10/24 at 0930, For 1 dose, Pre-Op, Administer within 60 minutes of incision., Indications: Prophylaxis, Surgical 0939 (Given - Provid er: Kaila Gilliam CRNA) Continuous Medication Order 02/08/2024 02/09/2024 02/10/2024 sodium chloride 0.9% infusion 30 mL/hr, intravenous, Continuous, Starting on Fri02/10/24 at 0930, Pre-Op 0925 (New Bag - Prov ider: Janae Thomson RN)0930 (Paused - Provider: Kaila Gilliam CRNA - Comment: Switch to gravity)0931 (Restarted - Provider: Kaila Gilliam CRNA)1033 (Anesthesia Volume Adjustment - Provider: Kaila Gilliam CRNA)1613 (Due: Stopped) PRN Medication Order 02/08/2024 02/09/2024 02/10/2024 lidocaine-EPINEPHrine (XYLOCAINE with EPI) 1 %-1:200,000 preservative free injection (CANCELED) As needed, Starting on Fri02/10/24 at 0945, Intra-Op, Indications: Administration of Local Anesthesia 0945 (Given - Provid er: Mark iPckett MD) sodium chloride 0.9% irrigation (CANCELED) As needed, Starting on Fri02/10/24 at 0952, Intra-Op 0952 (Given - Provid er: Mark Pickett MD - Comment: On sterile field for irrigation) documented in this encounter Orders Medications Ordered That Cash ht Not Have Been Administered Count Last Ordered Date First Ordered Date acetaminophen (TYLENOL) tablet 1,000 mg 1 0 02/10/2024 amisulpride (BARHEMSYS) injection 10 mg 1 0 02/10/2024 Carrier Fluids for Secondary Infusion - 0.9% Sodium Chloride 2 02/10/2024 ceFAZolin (ANCEF) 2,000 mg/2 0 mL in sterile water (premix) 2,000 mg 1 02/10/2024 fentaNYL (SUBLIMAZE) preserv ative free injection 25 mcg 1 02/10/2024 gabapentin (NEURONTIN) capsule 300 mg 1 naloxone (NARCAN) 0.4 mg/mL injection 0.04-0.4 mg 1 02/10/2024 sodium chloride 0.9% flush 0.5-20 mL 2 01/13 Diet Count Last Ordered Date First Orde red Date ADULT DISCHARGE DIET 1 02/10/2024 Nursing Count Last Ordered Date First Orde red Date DISCHARGE ACTIVITY 1 02/10/2024 DISCHARGE CALL PROVIDER 6 02/10/2024 DISCHARGE DRESSING 1 02/10/2024 Discharge Count Last Ordered Date First Orde red Date DISCHARGE PATIENT 1 02/10/2024 documented in this encounter Care Teams Sales Development Director Relationship Specialty Start Date End Date Lalito England MD [address] [place] [address] PCP - General 08/03/19 documented as of this encounter
--- OUTSIDE RECORDS SUMMARY | 2024-07-11 22:34 | XMS_ITS | Encounter Summary ---
Author Organization [facility] Healthcare Address [address] [place] [address] Care Team Providers Care Pipe Assembly Worker Name Role Phone Lalito England MD Primary Care Provider [phone] Encounter Details Date Type Department Care Team (Late st Contact Info) Description 12/06/2023 Orders Only [facility] Health Information Management [address] [place] [id number] Scanning, Provider Social History Tobacco Use Types Packs/Day Years [...] points, staff should administer the PHQ-9) 0 09/22/2023 PRAPARE - Transportation Answer Date Re corded [...] place to sleep or slept in a skilled nursing (including now)? No 07/16/2022 Personal Safety Answer Date Recorded Have you ever been in or are you currently in a harmful physical or emotional relationship or is someone making you feel afraid or unsafe? 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 Gender Identity Not on file Sexual Orientation Not on file documented as of this encounter Plan of Treatment Not on file documented as of this encounter Procedures Procedure Name Priority Date/Time Associated Diagnosis Comments SCAN - RADIOLOGY/IMAGING 12/06/2023 documented in this encounter Results * SCAN - RADIOLOGY/IMAGING (12/06/2023) Anatomical Region Laterality Modality Other us Provider Scanning Final Result documented in this encounter Visit Diagnoses Not on filedocumented in this encounter Care Teams Pipe Assembly Worker Relationship Specialty Start Date End Date Lalito [place] [address] PCP - General 08/03/19 documented as of this encounter
--- OUTSIDE RECORDS SUMMARY | 2024-07-11 22:34 | XMS_ITS | Encounter Summary ---
Author Organization [facility] Address [address] [facility] [address] [place] [address] Phone Care Team Providers Care Exit Booth Agent Name Role Phone Lalito England MD Primary Care Provider [phone] Reason for Referral * Diagnostic Imaging (Routine) - Closed Specialty Diagnoses / Procedures Referred By Giuliana boone Referred To Contact Diagnoses Melanoma of right upper arm (HCC) Procedures NM Lymphoscintigraphy (Skin Cancer) Mark Pickett MD [address] [facility] [phone] [place] [address] Phone: tel: fax: [address] [phone] Referral ID Status Reason Start Date Expiration Date Visits Re quested Visits Authorized [id number] Closed 04/12/2024 05/12/2025 2 2 Encounter Details Date Type Department Care Team (Late st Contact Info) Description 04/12/2024 Orders Only [facility] Surgery [address] [facility] [address] [place] [address] Dima Treviño RMA Melanoma of right upper arm (HCC) (Primary Dx) Social History Tobacco Use Types Packs/Day Years Used Date Smoking Tobacco: Never Passive Smoke Exposure: Past Smokeless Tobacco: Never Alcohol Use Standard Drinks/Week Comments Yes 0 (1 standard drink = 0.6 oz pur e alcohol) occasional [facility] Utilities Answer Date Recorded In the [...] often do you attend chur ch or synagogue services? Never 01/19/2024 Do you belong to any clubs o r organizations such as gnosticism groups, unions, fraternal or athletic groups, or school groups? No 01/19/2024 How often do you attend meet ings of the clubs or organizations you belong to? Never 01/19/2024 Are you , , di vorced, , never , or living with a partner? 01/19/2024 AUDIT-C Answer Date Recorded Q1: How often do you have a drink containing alcohol? Never 04/12/2024 Q2: How many drinks containi ng alcohol do you have on a typical day when you are drinking? Patient does not drink Q3: How often do you have si x or more drinks on one occasion? 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 Gender Identity Not on file Sexual Orientation Not on file documented as of this encounter Miscellaneous Notes * Addendum Note - Dima Treviño RMA - 04/12/2024 8:32 AM CDTAddended by: DIMA TREVIÑO on: 04/12/2024 08:36 AM Modules accepted: Orders documented in this encounter Plan of Treatment Scheduled Orders Name Type Priority Associated Diagnoses Order Schedule NM Radiopharm Injection for Identification of [place] Node Right Imaging Schedule Routine, Read Routine (OP Routine) Melanoma of right upper arm (HCC) Expected: 04/12/2024, Expires: 04/12/2025 documented as of this encounter Results * NM Lymphoscintigraphy (Skin [...] AM T: ??04/20/2024 11:46 AM Report ID: [id number] Reading Location: ??[id number] Procedure Note Néstor Davis MD - 04/20/2024 [...] Néstor Davis M.D. LB: ARVIND Report ID: [id number] Reading Location: [id number] us Mark Pickett MD IMG NM PROCEDURES Fi nal Result documented in this encounter Visit Diagnoses Diagnosis Melanoma of right upper arm (HCC)- Primary Melanoma of right upper arm (HCC) documented in this encounter Care Teams Exit Booth Agent Relationship Specialty Start Date End Date Lalito England MD [address] [place] [address] PCP - General 08/03/19 documented as of this encounter
--- OUTSIDE RECORDS SUMMARY | 2024-07-11 22:34 | XMS_ITS | Encounter Summary ---
Author Organization [facility] Address [address] [place] [address] Phone Care Team Providers Care Engraver Tender Name Role Phone Lalito England MD Primary Care Provider [phone] Reason for Referral * Diagnostic Imaging (Routine) - Authorized Specialty Diagnoses / Procedures Referred By Giuliana t Referred To Contact Diagnoses Degenerative cervical spinal stenosis Procedures XR Spine Cervical 2 or 3 Views Anson Jeffries NP [address] [place] [address] Phone: tel: fax: [address] [phone] Referral ID Status Reason Start Date Expiration Date V isits Requested Visits Authorized [id number] Authorized 04/12/2024 05/12/2025 1 1 Encounter Details Date Type Department Care Team (Late st Contact Info) Description 04/12/2024 Orders Only [facility] Neurosurgery [address] [facility] [address] [place] [address] Anson Jeffries NP [address] [place] [address] Degenerative cervical spinal stenosis (Primary Dx) Social History Tobacco Use Types Packs/Day Years Used Date Smoking Tobacco: Never Passive Smoke Exposure: Past Smokeless Tobacco: Never Alcohol Use Standard Drinks/Week Comments Yes 0 (1 standard drink = 0.6 oz pur e alcohol) occasional [facility] Utilities Answer Date Recorded In the past [...] any clubs o r organizations such as caodaism groups, unions, fraternal or athletic groups, or [...] a skilled nursing (including now)? No 07/16/2022 Housing Stability Vital [...] were you homeless or living in a skilled nursing (including now)? No 01/19/2024 Personal Safety Answer Date Recorded Have you ever been in or are you currently in a harmful physical or emotional relationship or is someone making you feel afraid or unsafe? 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 Gender Identity Not on file Sexual Orientation Not on file documented as of this encounter Plan of Treatment Scheduled Orders Name Type Priority Associated Diagnoses Orde r Schedule XR Spine Cervical 2 or 3 Views Imaging Schedule Routine, Read Routine (OP Routine) Degenerative cervical spinal stenosis Expected: 04/12/2024, Expires: 04/12/2025 documented as of this encounter Visit Diagnoses Diagnosis Degenerative cervical spinal stenosis- Primary Spinal stenosis in cervical region documented in this encounter Care Teams Engraver Tender Relationship Specialty Start Date End Date Lalito England MD [address] [place] [address] PCP - General 08/03/19 documented as of this encounter
--- OUTSIDE RECORDS SUMMARY | 2024-07-11 22:34 | XMS_ITS | Encounter Summary ---
Author Organization [facility] Healthcare Address [address] [place] [address] Care Team Providers Care Advertising Teacher Name Role Phone Lalito England MD Primary Care Provider [phone] Reason for Referral * Consultation (Routine) - Authorized Specialty Diagnoses / Procedures Referred By Contayah t Referred To Contact Physical Therapy Diagnoses Pain in both lower extremities Lalito England MD [address] [place] [address] Phone: tel: fax: [address] [phone] Referral ID Status Reason Start Date Expiration Date Visits Requested Visits Authorized [id number] Authorized Evaluate and Treat 04/08/2023 07/13/2024 24 24 Question Answer PTRFR PT Evaluate and Treat Therapy options discussed with patient? Yes Location provided for therapy services is: Patient requested/Patient preferred Please select the performing region: [facility] [144] # of visits: 24 Reason for Visit * Reason Onset Date Comments Leg Pain 01/23/2024 Encounter Details Date Type Department Care Team (Late st Contact Info) Description 01/23/2024 Nurse Triage [facility] [address] [place] [address] Lalito England MD [address] [place] [address] Pain in both lower extremities (Primary Dx) Social History Tobacco Use Types Packs/Day Years Used Date Smoking Tobacco: Never Passive Smoke Exposure: Past Smokeless Tobacco: Never Alcohol Use Standard Drinks/Week Comments Yes 0 (1 standard drink = 0.6 oz pur e alcohol) occasional [facility] Utilities Answer Date Recorded In the [...] any time in the past 12 m [facility], were you homeless or living in [...] on file 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 * Addendum Note - Lalito England MD - 01/28/2024 4:52 PM CDTAddended by: LALITO ENGLAND on: 01/28/2024 04:52 PM Modules accepted: Orders * Telephone Encounter - Racquel Stevens CMA - 01/28/2024 4:25 PM CDT Good afternoon, just following up with this encounter and was getting ready to sign it and notice that the pend PT order was cancelled was looking for clarification so I can make patient aware of plan. Dr. England please advise, thank you * Telephone Encounter - Racquel Stevens CMA - 01/26/2024 4:[address] England if agreeable please review and signed pend orders. Thank you * Addendum Note - Racquel Stevens CMA - 01/26/2024 4:36 PM CDTAddended by: RACQUEL STEVENS on: 01/26/2024 04:36 PM Modules accepted: Orders * Telephone Encounter - Racquel Stevens CMA - 01/23/2024 4:18 PM CDT Called patient and made aware of provider recommendations and patient voiced understanding. Patienthas her last appointment last week with them. Patient stated also have been trying leg stretching exercise to try to help. Made patient aware that if pain get to bad that CC is open everyday and always ER if needed. Also, made patient aware we will be back in office on Friday if they would need anything else. Patient would a referral to physical therapy, states seems to have been helping. Will forward to provider for a referral to physical therapy. Miya Irwin please advise thank you. * Telephone Encounter - Racquel Stevens CMA - 01/23/2024 3:11 PM CDT Called patient and thinks its her sciatic nerve acting up on the right side. Patient has been usingice on it. Patient does have some muscle relaxer's at home and wondering if that would help? Pleasealso see note below. Patient is unable to get a ride to since her sister who usually who brings her but they was just dx with COVID on Fri. Patient would prefer not to go to ER either with wait time and things. Patient was wondering if there was anything else they could do at home or ideas to help with the pain? Will forward to provider to see if have any other ideas and also the question about muscle relaxer. Miya Irwin please advise, thank you. * Telephone Encounter - Justina Bajwa RN - 01/23/2024 1:16 PM CDT Criss Ly reports new onset pain (last night) in the right hip which shoots to her right lumbar/thoracic back and into the RLE down to the knee. The pain occurs more often when standing & occasionally the right knee will give out, oh yeah, it's been doing that a lot since last night . The right knee giving out is not new (last occurred 2021). RLE is weaker than LLE. She has been taking her [place]. Rates her continuous pain at worst 9/10 standing, at best 6/10 sitting/resting. Hx of back surgery, neck surgery & acute rehab. Denies numbness/fever/abdominal pain/issue with bowel or bladder control/dysuria/hematuria. Care advice and emotional support given. Patient instructed to call back if symptoms worsen or withany questions and verbalized understanding. No appts in office today. Advised patient to go to [facility] today for evaluation, next appt at 1830. Patient states she has no transportation today and in a wheelchair. Then patient stated she was receiving a call from Dr. Woods's office, put this RN on hold & then the call was lost. Called patient back & it was not PCP office. Tasking to office for d/w PCP & call back to patient. Reason for Disposition SEVERE pain (e.g., excruciating, unable to do any normal activities) Protocols used: Hip [id number] * Telephone Encounter - Justina Bajwa RN - 01/23/2024 1:13 PM CDT Regarding: Severe pain in right leg ----- Message from Maryann Richard sent at 01/23/2024 1:12 PM CDT ----- Symptom Based Call Chief Complaint(s): Severe pain in right leg Duration: On going What type of symptom(s) is the patient experiencing? Red Flag. Is the patient concerned they are experiencing a medical emergency requiring an ambulance? No Additional Comments: Patient has severe shooting pain in her right leg to hip. Does message need to be routed? Yes-Action Needed documented in this encounter Plan of Treatment Scheduled Referrals Name Type Priority Associated Diagnoses Orde r Schedule Ambulatory referral order to Physical Therapy - Outpatient Referral Routine Pain in both lower extremities Expected: 02/11/2024 (Approximate), Expires: 01/27/2025 documented as of this encounter Visit Diagnoses Diagnosis Pain in both lower extremities- Primary documented in this encounter Care Teams Advertising Teacher Relationship Specialty Start Date End Date [place] [address] PCP - General 08/03/19 documented as of this encounter
--- OUTSIDE RECORDS SUMMARY | 2024-07-11 22:34 | XMS_ITS | Encounter Summary ---
Author Organization [facility] Healthcare Address [address] [place] [address] Care Team Providers Care Nursing Education Specialist Name Role Phone Lalito England MD Primary Care Provider [phone] Encounter Details Date Type Department Care Team (Late st Contact Info) Description 04/05/2024 Telephone [facility] Medical Group Gastroenterology at [address] [place] [address] Abdoulaye Argueta MA Social History Tobacco Use Types Packs/Day Years Used Date Smoking Tobacco: Never Passive Smoke Exposure: Past Smokeless Tobacco: Never Alcohol Use Standard Drinks/Week Comments Yes 0 (1 standard drink = 0.6 oz pur e alcohol) occasional [facility] Utilities Answer Date Recorded In the past 12 months has [employer] electric, gas, oil, or water company threatened [...] often do you attend chur ch or confucianist services? 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 Patients questions pertaining to her procedure were answered via telephone. documented in this encounter Plan of Treatment Not on file documented as of this encounter Visit Diagnoses Not on filedocumented in this encounter Care Teams Nursing Education Specialist Relationship Specialty Start Date End [place] [address] PCP - General 08/03/19 documented as of this encounter
--- OUTSIDE RECORDS SUMMARY | 2024-07-11 22:34 | XMS_ITS | Encounter Summary ---
Author Organization [facility] Healthcare Address [address] [place] [address] Care Team Providers Care Process Expert Name Role Phone Lalito England MD Primary Care Provider [phone] Reason for Visit * Auth/Cert (Routine) Specialty Diagnoses / Procedures Referred By Contac t Referred To Contact Diagnoses Family history of colon cancer in father Encounter for screening colonoscopy Adenomatous polyp of colon, unspecified part of colon Family history of colon cancer in father [Z80.0] Encounter for screening colonoscopy [Z12.11] Adenomatous polyp of colon, unspecified part of colon [D12.6] Procedures AR COLONOSCOPY FLX DX W/COLLJ SPEC WHEN PFRMD COLONOSCOPY Referral ID Status Reason Start Date Expiration Date Visits Re quested Visits Authorized [id number] 1 1 Encounter Details Date Type Department Care Team (Latest Contact Info) Description 04/13/2024 11:20 AM CDT - 04/13/2024 2:49 PM T Hospital Encounter [facility] [address] [place] [address] Karlene Ramirez MD [address] [place] [address] [address] Family history of colon cancer in father; [...] oz pur e alcohol) occasional [facility] Utilities Answer Date Recorded In the [...] often do you attend chur ch or lutheran services? 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 Gender Identity Not on file Sexual Orientation Not on file documented as of this encounter Last Filed Vital Signs Vital Sign Reading Time Taken Comments Blood Pressure 133/59 04/13/2024 2:10 PM CDT Pulse 66 04/13/2024 2:10 PM CDT Temperature 36.6 ??C (97.8 ??F) 04/13/2024 2:10 PM CD T Respiratory Rate 16 04/13/2024 2:10 PM CDT Oxygen Saturation 99% 04/13/2024 2:10 PM CDT Inhaled Oxygen Concentration - - [...] 1 tablet (81 mg total) by mouth traffic signal repairer before breakfast Do not restart until 2 [...] wanted to talk to drRamo 90 tablet 4 montelukast (SINGULAIR) 10 mg [...] 4 04/14/20 24 Nyamyc powder Apply topically traffic signal repairer before breakfast 4 05/26/20 24 omeprazole (PriLOSEC) [...] 11/24/2023 Dvt femoral (deep venous thrombosis) (CMS/HCC) ([facility]) r eg Gastroesophageal reflux disease GERD HX OTHER MEDICAL PMO 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 2008.; Comments: [facility] 07/25/2015 - HX OTHER MEDICAL Breast reduction 2009.; Comments: [facility] 07/25/2015 - HX OTHER MEDICAL left hip and leg surgery HX OTHER MEDICAL conversion of previous hip arthroplasty left hip; Comments: [facility] TCU unit 02/06 - 02/17/16 for rehabilitation. 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 David Sykes, [facility] - conversion of previous hip [...] 04/13/2024 11:49 AM CDTAssociated Order(s): COLONOSCOPY [facility] Patient Name: Criss Renteria Procedure Date: 04/13/2024 11:49 AM Date of : 1950 Admit Type: Outpatient Age: 73 Gender: Female Attending MD: Karlene Ramirez M.D. Room: [facility] ENDOSCOPY ROOM 1 Note Status: Finalized Patient [...] under direct vision. The Pediatric Colonoscope PCF-H190L [id number] was introduced through the anus and advanced [...] 11:49 AM Procedure Code(s): --- Professional --- 60547, Colonoscopy, flexible; with removal of tumor(s), polyp(s), or other lesion(s) by snare technique 05550, 59, Colonoscopy, flexible; with biopsy, single or multiple Diagnosis Code(s): --- Professional --- Z80.0, Family history of malignant neoplasm of digestive organs Z86.010, Personal history of colonic polyps D12.0, Benign neoplasm of cecum D12.5, Benign neoplasm of sigmoid colon K64.8, Other hemorrhoids D12.4, Benign neoplasm of descending colon D12.3, Benign neoplasm of transverse colon (hepatic flexure or splenic flexure) CPT copyright 2021 [employer]. All rights reserved. The codes documented in this report are preliminary and upon senior commissary agent review may be revised to meet current compliance requirements. Recognized by the [employer] for promoting quality in endoscopy documented in this encounter Nursing Notes * Tracy Giles, RN - 04/13/2024 2:57 PM CDT 1429-Dr. [...] ORDERABLES - MUKESH CE Final Result [facility] [place] 1 [facility] Department [place] [address] * Colonoscopy (04/13/2024 11:49 AM CDT) Anatomical Region Laterality Modality Other Narrative Procedure Note Karlene Ramirez MD - 04/13/2024 11:49 AM CDT [facility] Patient Name: Criss Renteria Procedure Date: 04/13/2024 11:49 AM Date of : 1950 Admit Type: Outpatient Age: 73 Gender: Female Attending MD: Karlene Ramirez M.D. Room: [facility] ENDOSCOPY ROOM 1 Note Status: Finalized Patient [...] under direct vision. The Pediatric Colonoscope PCF-H190L [id number] was introducedthrough the anus and advanced to [...] 11:49 AM Procedure Code(s): --- Professional --- 68728, Colonoscopy, flexible; with removal of tumor(s), polyp(s), or other lesion(s) by snare technique 74277, 59, Colonoscopy, flexible; with biopsy, single or multiple Diagnosis Code(s): --- Professional --- Z80.0, Family history of malignant neoplasm of digestive organs Z86.010, Personal history of colonic polyps D12.0, Benign neoplasm of cecum D12.5, Benign neoplasm of sigmoid colon K64.8, Other hemorrhoids D12.4, Benign neoplasm of descending colon D12.3, Benign neoplasm of transverse colon (hepatic flexure orsplenic flexure) CPT copyright 2020 [employer]. All rights reserved. The codes documented in this report are preliminary and upon senior commissary agent reviewmay be revised to meet current compliance requirements. Recognized by the [employer] for promoting quality in endoscopy us Karlene Ramirez MD ENDOSCOPY PROCEDURES Final Result * Surgical pathology (04/13/2024 10:20 AM CDT) Tissue (Polyp(s), colon/colorectal, esophageal, gastric) 04/13/2024 1:10 PM CDT Tissue (Polyp(s), colon/colorectal, esophageal, gastric) 04/13/2024 1:17 PM CDT Tissue (Polyp(s), colon/colorectal, esophageal, gastric) 04/13/2024 1:35 PM CDT Narrative PATHOLOGY [facility] ([place] - 04/15/2024 1:47 PM CDT EPIC results best viewed via link to PDF [facility] Department of Pathology [address] [place] [address] Note to Patients: This report may contain [...] Report Patient Name: ??CRISS RENTERIA Address: ??[address] [place] [address], ??[place], [place] ??[address]- Gender: ??F : ??1950 (Age: 73) Service: ??Gastro Location: ??[facility] Hospital #: ??[id number] Patient Type: ??[facility] Accession # ?[id number] Taken: ??04/13/2024 Received: ??04/14/2024 Accessioned: ??04/14/2024 Reported: [...] determined by the Surgical Pathology Department at [facility] as part of an ongoing software quality engineer program and in compliance with [...] characteristics determined by the Surgical Pathology Department [facility]. ??It has not been cleared or approved by the U. S. Food and Drug Administration. Note for decalcified specimens: This assay has not been validated on decalcified tissues. Results should be interpreted with caution given the possibility of false negativity on decalcified specimens us Karlene Ramirez MD LAB PATHOLOGY ORDERABLES F inal Result PATHOLOGY [facility] ([place]) [address] [place] [address] documented in this encounter Visit Diagnoses Diagnosis [...] (GI) 1408 (Not Given - Pr ovider: rTacy Giles RN - Reason: IV Infusing) PRN [...] 04/13/2024 documented in this encounter Care Teams Process Expert Relationship Specialty Start Date End Date Lalito England MD [address] [place] [id number] PCP - General 08/03/19 documented as of this encounter
--- OUTSIDE RECORDS SUMMARY | 2024-07-11 22:34 | XMS_ITS | Encounter Summary ---
Author Organization [facility] Healthcare Address [address] [place] [address] Care Team Providers Care Complaint Investigations Officer Name Role Phone Lalito England MD Primary Care Provider [phone] Parvin Whelan RN Unavailable [phone] Reason for Visit * Reason Onset Date Comments Patient issue/concern 12/19/2023 Encounter Details Date Type Department Care Team (Late st Contact Info) Description 12/19/2023 Telephone [facility] [address] [place] [address] Parvin Whelan, SEBASTIÁN [address] [place] [address] DR HARDY [address] [place] [id number] Patient issue/concern Social History Tobacco Use Types Packs/Day Years Used Date Smoking Tobacco: Never Passive Smoke Exposure: Past Smokeless Tobacco: Never Alcohol Use Standard Drinks/Week Comments Yes 0 (1 standard drink = 0.6 oz pur e alcohol) occasional [facility] Utilities Answer Date Recorded In the past 12 months has [employer] electric, gas, oil, or water company threatened [...] often do you attend chur ch or cheondoism services? 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 Patient is s/p recent hospitalization and short term rehab stay, DX: Cervicalgia, spinal stenosis s/p surgical intervention. Patient scheduled with [facility] follow up on 12/28, soonest available as patient requests to see MD only. Also patient states acute rehab facility has ordered her to start taking Losartan 12.5 mg po daily but she has not been taking as she reports SBP today was 104 without taking this med. Just FYI. Thanks. Parvin Whelan RN, BEEF CATTLE GRAZIER, CCM rock cutter [facility] Medical Group ACO [phone] [email or web address] documented in this encounter Plan of Treatment Not on file documented as of this encounter Visit Diagnoses Not on filedocumented in this encounter Care Teams Complaint Investigations Officer Relationship Specialty Start Date End Date Lalito England MD [address] [place] [address] PCP - General 08/03/19 Parvin Whelan RN [address] [place] [address] DR HARDY [address] [place] [address] [place] 12/19/23 01/18/24 documented as of this encounter
--- OUTSIDE RECORDS SUMMARY | 2024-07-11 22:34 | XMS_ITS | Encounter Summary ---
Author Organization [facility] Healthcare Address [address] [place] [address] Care Team Providers Care Forest Fire Specialist Supervisor Name Role Phone Lalito England MD Primary Care Provider [phone] Reason for Visit * Reason Onset Date Comments Medical Question/Miscellaneous 02/03/2024 Encounter Details Date Type Department Care Team (Late st Contact Info) Description 02/03/2024 Telephone [facility] [address] [facility] [place] [address] Lalito England MD [address] [facility] [place] [address] Medical Question/Miscellaneous Social History Tobacco Use Types Packs/Day Years Used Date Smoking Tobacco: Never Passive Smoke Exposure: Past Smokeless Tobacco: Never Alcohol Use Standard Drinks/Week Comments Yes 0 (1 standard drink = 0.6 oz pur e alcohol) occasional [facility] Utilities Answer Date Recorded In the past 12 months has [employer], gas, oil, or water [employer] threatened to shut off services in your [...] week 01/19/2024 How often do you attend [facility] or christian services? 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 Does message need to be routed? Yes-FYI Only * Telephone Encounter - Aniyah Alexander - 02/03/2024 9:13 AM CDT Medical Question/Miscellaneous Caller???s Concern: patient said she received call to schedule Physical Therapy at [facility] however she said it was supposed to be home care physical therapy and wanted to use [facility]. She said she used them before and worked with a Physical Therapist named Lelo that she really liked. She said she is fadumo wheel chair and cannot go to outpatient. Does message need to be routed? Yes-Action Needed documented in this encounter Plan of Treatment Not on file documented as of this encounter Visit Diagnoses Not on filedocumented in this encounter Care Teams Forest Fire Specialist Supervisor Relationship Specialty Start Date End Date Lalito England MD [address] [place] [address] PCP - General 08/03/19 documented as of this encounter
--- OUTSIDE RECORDS SUMMARY | 2024-07-11 22:34 | XMS_ITS | Encounter Summary ---
Author Organization [facility] Healthcare Address [address] [place] [address] Care Team Providers Care Patient Information Coordinator Name Role Phone Lalito England MD Primary Care Provider [phone] Parvin Whelan RN Unavailable [phone] Reason for Visit * Reason Comments Follow-up Patient here for VIKA from [facility] from 11/24/2023 to 12/04/2023 for Cervicalgia, spinal stenosis s/p surgical intervention. Then to [facility] from 12/04/2023 to 12/17/2023 to home and PT suppose to be coming to patient house and have not started yet and no one has called. 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); Controlled type 2 diabetes mellitus with stage 3 chronic kidney disease, with long-term current use of insulin ([facility]); BMI 33.0-33.9,adult; Obesity (BMI 30.0-34.9) Social History Tobacco Use Types Packs/Day Years [...] in a longterm (including now)? No 07/16/2022 Personal Safety Answer Date Recorded Have you ever been in or are you currently in a harmful physical or emotional relationship or is someone making you feel afraid or unsafe? 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 Gender Identity Not on file Sexual Orientation Not on file documented as of this encounter Last Filed Vital Signs Vital Sign Reading Time Taken Comments Blood Pressure 124/62 12/29/2023 3:39 PM CDT Pulse 80 12/29/2023 3:39 PM CDT Temperature 37.2 ??C (98.9 ??F) 12/29/2023 3:39 PM CD T Respiratory Rate 18 12/29/2023 3:39 PM CDT Oxygen Saturation 96% 12/29/2023 3:39 PM CDT Inhaled Oxygen Concentration - - Weight 94.8 kg (209 lb) 12/29/2023 3:39 PM CDT Height 167.6 cm (5' 5.98 ) 12/29/2023 3:39 PM CD T Body Mass Index 33.75 12/29/2023 3:39 PM CDT documented in this encounter Ordered Prescriptions Prescription Sig Dispense Quantity Refills Last Filled Start Date End Date gabapentin (NEURONTIN) 100 mg capsule Take 1 capsule (100 mg total) by mouth 4 (four) times a day 360 capsule 1 12/29/2023 4 documented in this encounter Progress Notes * Lalito England MD - 12/29/2023 3:45 PM CDT Images from the original note were not included. [facility] Chief Complaint. Chief Complaint Patient presents with Follow-up Patient here for VIKA from [facility] from 11/24/2023 to 12/04/2023 for Cervicalgia, spinal stenosis s/p surgical intervention. Then to [facility] from 12/04/2023 to 12/17/2023 to home and PT suppose to be coming to patient house and have not started yet and no one has called. HPI. Patient is a 73 y.o. female Ms. Ly presents to clinic for f/u of cervical spine fusion surgery. Patient still with sig numbness/paresthesias in the bilateral upper extremities. No sig change in strength/coordination of the upper / lower extremities. Hypertension This is a chronic problem. The current episode started more than 1 year ago. The problem has been waxing and waning since onset. The problem is controlled. Associated symptoms include headaches and neck pain. Pertinent negatives include no chest pain, malaise/fatigue, peripheral edema or shortness of breath. Risk factors for coronary artery disease include diabetes mellitus, dyslipidemia, obesity, post-menopausal state, sedentary lifestyle and stress. Past treatments include angiotensin blockers and central alpha agonists. The current treatment provides moderate improvement. Hypertensive end-organ damage includes kidney disease. There is no history of CVA or left ventricular hypertrophy. [place] ntifiable causes of hypertension include chronic renal disease. Hyperlipidemia This is a chronic problem. The current episode started more than 1 year ago. The problem is controlled. Recent lipid tests were reviewed and are normal. Exacerbating diseases include chronic renal disease and obesity. Pertinent negatives include no chest pain, myalgias or shortness of breath. Current antihyperlipidemic treatment includes statins. The current treatment provides significant improvement of lipids. Compliance problems include adherence to diet and adherence to exercise. Risk factors for coronary artery disease include diabetes mellitus, dyslipidemia, hypertension, obesity, stress, a sedentary lifestyle and post-menopausal. Diabetes She presents for her follow-up diabetic visit. She has type 2 diabetes mellitus. Her disease coursehas been stable. Hypoglycemia symptoms include headaches. Pertinent negatives for hypoglycemia include no dizziness, mood changes, nervousness/anxiousness, sleepiness or tremors. Associated symptoms include foot paresthesias. Pertinent negatives for diabetes include no chest pain, no fatigue, no foot ulcerations and no weakness. Symptoms are stable. Pertinent negatives for diabetic complications include no CVA. Risk factors for coronary artery disease include diabetes mellitus, dyslipidemia, hypertension, obesity, post-menopausal, sedentary lifestyle and stress. Current diabetic treatment incl udes insulin injections and oral agent (dual therapy). She is compliant with treatment most of the time. Her weight is stable. She is following a diabetic and generally healthy diet. Past Medical History: Diagnosis Date Asthma Benign hypertension with CKD (chronic kidney disease) stage III (HCC) Cervicalgia 11/24/2023 Gastroesophageal reflux disease GERD HX OTHER MEDICAL PMO HX OTHER MEDICAL BLACK LEATHER TRIMMER HX OTHER MEDICAL [facility] OA HX OTHER MEDICAL 2008 Discectomy, cervical HX OTHER MEDICAL Fall HX OTHER MEDICAL Left proximal femoral Gamma Nail fixation proximal; Comments: [facility] 07/25/2015 - HX OTHER MEDICAL RTKR 2001.; Comments: [facility] 07/25/2015 - HX OTHER MEDICAL LTKR 2005.; Comments: [facility] 07/25/2015 - HX OTHER MEDICAL Back surgery 2006.; Comments: [facility] 07/25/2015 - HX OTHER MEDICAL Cervical disc surg. 2007.; Comments: [facility] 07/25/2015 - HX OTHER MEDICAL Breast reduction 2008.; Comments: [facility] 07/25/2015 - HX OTHER MEDICAL left hip and leg surgery HX OTHER MEDICAL conversion of previous hip arthroplasty left hip; Comments: [facility] TCU unit 02/06 - 02/17/16 [...] HIP ARTHROPLASTY Left 02/05/2016 Dr. David Sykes, [facility] - conversion of previous hip arthroplasty left hip: Conversion of Arthroplasty left hip TOTAL KNEE ARTHROPLASTY Left 09/27/2005 Left TKA - Dr. Cole Beckham TOTAL KNEE ARTHROPLASTY Right 08/27/2001 Right TKA - Dr. Light [facility] MEDICATIONS : acetaminophen 500 mg capsule apixaban (ELIQUIS) 5 mg tablet aspirin 81 mg enteric coated tablet blood glucose diagnostic (Contour Next Test Strips) strip blood-glucose meter (CONTOUR NEXT USB METER) mis calcium carbonate-vitamin D3 500 mg(1,250mg) -400 unit tablet cloNIDine (CATAPRES) 0.1 mg tablet docusate sodium (COLACE) 100 mg capsule finasteride (PROSCAR) 5 mg tablet fluticasone propionate (FLONASE) 50 mcg/actuation nasal spray furosemide (LASIX) 20 mg tablet HYDROcodone-acetaminophen (NORCO) 5-325 mg per tablet lancets (MICROLET LANCET) misc losartan (COZAAR) 25 mg tablet methocarbamoL (ROBAXIN) 500 mg tablet montelukast (SINGULAIR) 10 mg tablet Nyamyc powder omeprazole (PriLOSEC) 20 mg capsule pen needle, diabetic (BD Ultra-Fine Mini Pen Needle) 31 gauge x 3/16 needle polyethylene glycol (MIRALAX) 17 gram/dose powder semaglutide (Ozempic) 2 mg/dose (8 mg/3 mL) pen injector injection SEMGLEE-yfgn 100 unit/mL (3 mL) pen for injection senna-docusate (PERICOLACE) 8.6-50 mg simvastatin (ZOCOR) 40 mg tablet triamcinolone (KENALOG) 0.1 % cream albuterol HFA (PROVENTIL HFA,VENTOLIN HFA,PROAIR HFA) 90 mcg/actuation inhaler alendronate (FOSAMAX) 70 mg tablet cyclobenzaprine (FLEXERIL) 5 mg tablet gabapentin (NEURONTIN) 100 mg capsule insulin aspart (NovoLOG) 100 unit/mL (3 mL) pen for injection naloxone (NARCAN) 4 mg/actuation spray,non-aerosol No Known Allergies Social History Tobacco Use Smoking status: Never Passive exposure: Past Smokeless tobacco: Never Substance and Sexual Activity Drug use: Never Sexual activity: Defer Alcohol Use: Not At Risk (11/24/2023) AUDIT-C Frequency of Alcohol Consumption: Never Average [...] Systems: Review of Systems Constitutional: Negative for activity change, fatigue, fever and malaise/fatigue. HENT: Negative for postnasal drip and rhinorrhea. Respiratory: Negative for chest tightness, shortness of breath and wheezing. Cardiovascular: Negative for chest pain and leg swelling. Gastrointestinal: Negative for abdominal pain, blood in stool, constipation, diarrhea, nausea and vomiting. Genitourinary: Negative for dysuria and hematuria. Musculoskeletal: Positive for arthralgias, gait problem and neck pain. Negative for back pain and myalgias. Skin: Negative for rash. Neurological: Positive for headaches. Negative for dizziness, tremors, weakness and light-headedness. Psychiatric/Behavioral: Negative for dysphoric mood, sleep disturbance and suicidal ideas. The patient is not nervous/anxious. BP 124/62 (BP Location: Left arm, Patient Position: Sitting) Pulse 80 Temp 37.2 ??C (98.9 ??F) (Oral) Resp 18 Ht 167.6 cm (5' 5.98 ) Wt 94.8 kg (209 lb) SpO2 96% BMI 33.75 kg/m?? Physical Exam: Physical Exam Vitals reviewed. Constitutional: General: She is not in acute distress. HENT: Mouth/Throat: Pharynx: No oropharyngeal exudate. Eyes: [...] CVA tenderness or left CVA tenderness. Musculoskeletal: General: No tenderness. Cervical back: Neck supple. Right lower leg: No edema. Left lower leg: No edema. Lymphadenopathy: Cervical: No cervical adenopathy. Skin: Capillary Refill: Capillary refill takes less than 2 seconds. Findings: No erythema. Neurological: Mental Status: She is alert and oriented to person, place, and time. Motor: Weakness present. Gait: Gait abnormal. Psychiatric: Thought Content: Thought content normal. 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) (Primary) WIll continue to follow and montior repsonse. Reiveweed blood pressure control and will montio rrepsonse. Secondary hyperparathyroidism of renal origin ([facility]) COntinue to follow PTH and will montir oresponse. Sacroiliitis, not elsewhere classified ([facility]) Will be working with PT at home after rehab stay at [facility] and Surgical hospitalization. Acute embolism and thrombosis of right femoral vein ([facility]) Continue on apixaban and will follow response. Sarcoidosis of lung ([facility]) No change. 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 ([facility]) Contineu f/u with dermatology and will montior repsonse. Type 2 diabetes mellitus with stage 3b chronic kidney disease, with long-term current use of insulin ([facility]) CKD stage 3b, GFR 30-44 ml/min ([facility]) Stable and will continue to follow response. Controlled type 2 diabetes mellitus with stage 3 chronic kidney disease, with long-term current useof insulin (HCC) Other orders - gabapentin (NEURONTIN) 100 mg capsule; Take 1 capsule (100 mg total) by mouth 4 (four) times a day BMI Follow-up includes: nutrition counseling and exercise counseling. Body mass index is 33.75 kg/m??. 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) Sarcoidosis of lung ([facility]) Sarcoidosis 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 (HCC) Type 2 diabetes mellitus with stage 3b chronic kidney disease, with long-term current use of insulin (HCC) CKD stage 3b, GFR 30-44 ml/min (HCC) Controlled type 2 diabetes mellitus with stage 3 chronic kidney disease, with long-term current use of insulin ([facility]) BMI 33.0-33.9,adult Obesity (BMI 30.0-34.9) documented in this encounter Discontinued Medications Medication Sig Discontinue Reason Start Date End Da te amoxicillin 500 mg capsule Take 4 tablet/capsule (2,000 mg total) by mouth Before dentist Therapy completed 09/04/2023 12/29/2023 biotin 10,000 mcg capsule Take 1 capsule (10,000 mcg total) by mouth daily Therapy completed 12/29/2023 fluticasone propionate (Flovent Diskus) 100 mcg/actuation diskus inhaler Inhale 1 puff 2 (two) times a day Rinse mouth with water after use. Do not swallow. Therapy completed 01/06/2023 12/29/2023 melatonin 3 mg tablet,disintegrating Take 1 tablet by mouth nightly as needed Therapy completed 12/29/2023 oxyCODONE (ROXICODONE) 5 mg immediate release tabletIndications:Pain Take 1 tablet (5 mg total) by mouth every 4 (four) hours as needed for pain Therapy completed 12/04/2023 12/29/2023 gabapentin (NEURONTIN) 100 mg capsule TAKE 1 CAPSULE BY MOUTH 3 TIMES DAILY FOR NEUROPATHY Reorder 06/08/2023 12/29/2023 documented as of this encounter Historical Medications * This list may reflect changes made after this encounter. HYDROcodone-aceta minophen (NORCO) 5-325 mg per tabletIndications :Pain Take 1 tablet by mouth every 6 (six) hours as needed 01/19/2024 losartan (COZAAR) 25 mg tablet Take 0.5 tablets (12.5 mg total) by mouth daily Patient has not started yet, wanted to talk to 12/17/2023 01/22/2024 added in this encounter Care Teams Patient Information Coordinator Relationship Specialty Start Date End Date Lalito England MD [address] [place] [address] PCP - General 08/03/19 Parvin Whelan RN [address] [place] [address] [address] [place] [address] Director Of Teacher Education 12/19/23 01/18/24 documented as of this encounter
--- OUTSIDE RECORDS SUMMARY | 2024-07-11 22:34 | XMS_ITS | Encounter Summary ---
Author Organization [facility] Healthcare Address [address] [place] [address] Care Team Providers Care Executive Compensation Analyst Name Role Phone Lalito England MD Primary Care Provider [phone] Reason for Visit * Reason Onset Date Comments Referral Request 02/05/2024 Encounter Details Date Type Department Care Team (Late st Contact Info) Description 02/05/2024 Telephone [facility] [address] [facility] [place] [address] Lalito England MD [address] [place] [address] Referral Request (/) Social History Tobacco Use Types Packs/Day Years Used Date Smoking Tobacco: Never Passive Smoke Exposure: Past Smokeless Tobacco: Never Alcohol Use Standard Drinks/Week Comments Yes 0 (1 standard drink = 0.6 oz pur e alcohol) occasional [facility] Utilities Answer Date Recorded In the past 12 months has [employer], gas, oil, or water [employer] threatened to shut off services in your [...] week 01/19/2024 How often do you attend [facility] or baptist services? 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 [facility], the ref is [id number] Thank you Does message need to be routed? Yes-Action Needed * Telephone Encounter - Stormy Ibrahim - 02/05/2024 2:38 PM CDT Referral faxed, received confirmation * Telephone Encounter - Priya Kirk MA - 02/05/2024 2:24 PM CDT Medical Question/Miscellaneous Caller???s Concern: Naomy from [facility] was calling back stating that they would like the referral for 6 visits please Does message need to be routed? Yes-FYI Only * Telephone Encounter - Stormy Ibarhim - 02/05/2024 2:20 PM CDT LMOR for Naomy at [facility] - asking how many PT visits they need for referral. * Telephone Encounter - Citlaly Edwards - 02/05/2024 2:03 PM CDT Referral Provider Name: [facility] Specialty: PT Address: [address] [place] [address], Zip: [place] [address] Diagnosis Code/Symptom/Reason Patient is being seen: R26.81 Date of Appointment: Began 02 05 24 for at least 60 days NPI#: [id number] Tax ID#: [id number] Is insurance in chart up to date? [facility] Additional Comments: none Does message need to be routed? Yes-Action Needed documented in this encounter Plan of Treatment Not on file documented as of this encounter Visit Diagnoses Not on filedocumented in this encounter Care Teams Executive Compensation Analyst Relationship Specialty Start Date End Date [place] [address] PCP - General 08/03/19 documented as of this encounter
--- OUTSIDE RECORDS SUMMARY | 2024-07-11 22:34 | XMS_ITS | Encounter Summary ---
Author Organization [facility] Healthcare Address [address] [place] [address] Care Team Providers Care [employer] Caretaker Name Role Phone Lalito England MD Primary Care Provider [phone] Encounter Details Date Type Department Care Team (Late st Contact Info) Description 03/24/2024 Telephone [facility] [address] [facility] [place] [address] Lalito England MD [address] [place] [address] Social History Tobacco Use Types Packs/Day Years Used Date Smoking Tobacco: Never Passive Smoke Exposure: Past Smokeless Tobacco: Never Alcohol Use Standard Drinks/Week Comments Yes 0 (1 standard drink = 0.6 oz pur e alcohol) occasional [facility] Utilities Answer Date Recorded In the past 12 months has [employer], gas, oil, or water [employer] threatened to shut off services in your [...] How often do you attend chur or lutheran services? 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 Pt states that she will tack picker this afternoon. documented in this encounter Plan of Treatment Not on file documented as of this encounter Visit Diagnoses Not on filedocumented in this encounter Care Teams [employer] Caretaker Relationship Specialty Start Date End Date Lalito England MD [address] [place] [address] PCP - General 08/03/19 documented as of this encounter
--- OUTSIDE RECORDS SUMMARY | 2024-07-11 22:34 | XMS_ITS | Encounter Summary ---
Author Organization [facility] Healthcare Address [address] [place] [address] Care Team Providers Care Finance Analyst Name Role Phone Lalito England MD Primary Care Provider [phone] Parvin Whelan RN Unavailable [phone] Reason for Visit * Reason Onset Date Comments Additional Services Or Orders 12/18/2023 Call Back 12/18/2023 Encounter Details Date Type Department Care Team (Late st Contact Info) Description 12/18/2023 Telephone [facility] [address] [place] [address] Lalito England MD [address] [place] [address] Additional Services Or Orders; Call Back Social History Tobacco Use Types Packs/Day Years [...] Never 11/24/2023 Overall Financial Resource Strain (CARDIA) [employer] r Date Recorded How hard is it [...] in a fdc (including now)? No 07/16/2022 Personal Safety Answer Date Recorded Have you ever been in or are you currently in a harmful physical or emotional relationship or is someone making you feel afraid or unsafe? 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 Please advise if this has been completed? * Telephone Encounter - Lindy Andrea - 12/24/2023 2:35 PM CDT Call Back Caller???s Concern: Naomy called to check status of request below. Please advise. Does message need to be routed? Yes-Action Needed * Telephone Encounter - Devi George MA - 12/18/2023 11:12 AM CDT Please sign if agreeable. Thanks * Telephone Encounter - Maryann Smalls - 12/18/2023 11:03 AM CDT Additional Services or Orders Type of Service Requested:Physical Therapy, OT and usp Duration/Number of Visits: [phone] Is a verbal order acceptable? No Reason for Request (e.g. condition/symptom, date of COVID exposure if applicable): Dx g95.9 Details Regarding Additional Services (e.g. type of home health, type of equipment, type of test, etc.): Home health Where will services be performed? (if outside of the practice, facility name, address, phone/fax offacility): Patient's Additional Comments: Chuck IZQUIERDO Fax, Does message need to be routed? Yes-Action Needed documented in this encounter Plan of Treatment Not on file documented as of this encounter Visit Diagnoses Diagnosis CKD stage 4 due to type 2 diabetes mellitus (CMS/HCC) (HCC)- Primary DDD (degenerative disc disease), lumbar Degeneration of lumbar or lumbosacral intervertebral disc documented in this encounter Care Teams Finance Analyst Relationship Specialty Start Date End Date Lalito England MD [address] [place] [address] PCP - General 08/03/19 Parvin Whelan, [place] [address] [place] [address] [address] [place] [id number] Beef Pusher 12/19/23 01/18/24 documented as of this encounter
--- OUTSIDE RECORDS SUMMARY | 2024-07-11 22:34 | XMS_ITS | Encounter Summary ---
Author Organization [facility] Address [address] [facility] [address] [place] [address] Phone Care Team Providers Care Procurement Consultant Name Role Phone Lalito England MD Primary Care Provider [phone] Parvin Whelan RN Unavailable [phone] Reason for Referral * Diagnostic Imaging (Routine) - Closed Specialty Diagnoses / Procedures Referred By Contac t Referred To Contact Diagnoses Degenerative cervical spinal stenosis Procedures XR Spine Cervical 2 or 3 Views Brennan Castillo MD [address] [place] [address] Phone: tel: fax: [address] [phone] Referral ID Status Reason Start Date Expiration Date Visits Re quested Visits Authorized [id number] Closed 12/26/2023 01/24/2025 1 1 Encounter Details Date Type Department Care Team (Late st Contact Info) Description 12/26/2023 Orders Only [facility] Neurosurgery [facility] Medical Office Building [address] [place] [address] Brennan Castillo MD [address] [place] [address] Degenerative cervical spinal stenosis (Primary [...] in a intermediate (including now)? No 07/16/2022 Personal Safety Answer Date Recorded Have you ever been in or are you currently in a harmful physical or emotional relationship or is someone making you feel afraid or unsafe? 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 Gender Identity Not on file Sexual Orientation Not on file documented as of this encounter Plan of Treatment Not on file documented as of this encounter Results * XR Spine Cervical [...] stenosis- Primary Spinal stenosis in cervical region Degenerative cervical spinal stenosis Spinal stenosis in cervical region documented in this encounter Care Teams Procurement Consultant Relationship Specialty Start Date End Date Lalito Egnland MD [address] [place] [address] PCP - General 08/03/19 Parvin Whelan, SEBASTIÁN [address] [place] [address] [address] [place] [address] Fish Flipper 12/19/23 01/18/24 documented as of this encounter
--- OUTSIDE RECORDS SUMMARY | 2024-07-11 22:34 | XMS_ITS | Encounter Summary ---
Author Organization [facility] Address [address] [place] [address] Care Team Providers Care Trailer Rental Clerk Name Role Phone Lalito England MD Primary Care Provider [phone] Reason for Visit * Reason Comments Follow-up Patient here follow up. Then patient right leg started to hurt, and it gave out on patient. Patient is still having pain when standing up on it. Patient is unable to sleep and hard to get comfy. Patient is set up for PT and now waiting for [facility] to approve the visit. Patient is having surgery on right shoulder to have dark spot taken. Patient is also have appointment with lung On Fri. Encounter Details Date Type Department Care Team (Late st Contact Info) Description 02/09/2024 9:15 AM CDT Office Visit [facility] [address] [facility] [place] [address] Lalito England MD [address] [facility] [address] Controlled type 2 diabetes mellitus with hyperglycemia, with long-term current use of insulin (CMS/HCC) ([facility]) (Primary Dx); Melanoma of right upper arm ([facility]); Type 2 diabetes mellitus with stage 3b chronic kidney disease, with long-term current use of insulin ([facility]); Hypertension associated with diabetes ([facility]); Type 2 diabetes mellitus with hyperlipidemia ([facility]); Spinal stenosis, lumbar region without neurogenic claudication; CKD stage 3b, GFR 30-44 ml/min ([facility]); BMI 34.0-34.9,adult; Obesity (BMI 30.0-34.9) Social History Tobacco Use Types Packs/Day Years Used Date Smoking Tobacco: Never Passive Smoke Exposure: Past Smokeless Tobacco: Never Alcohol Use Standard Drinks/Week Comments Yes 0 (1 standard drink = 0.6 oz pur e alcohol) occasional [facility] Utilities Answer Date Recorded In the [...] any clubs o r organizations such as yarsanism groups, unions, fraternal or athletic groups, or [...] any time in the past 12 m [facility], were you homeless or living [...] on file 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 Gender Identity Not on file Sexual Orientation Not on file documented as of this encounter Last Filed Vital Signs Vital Sign Reading Time Taken Comments Blood Pressure 114/60 02/09/2024 9:12 AM CDT Pulse 71 02/09/2024 9:12 AM CDT Temperature 36.8 ??C (98.2 ??F) 02/09/2024 9:12 AM CD T Respiratory Rate 18 02/09/2024 9:12 AM CDT Oxygen Saturation 98% 02/09/2024 9:12 AM CDT room air Inhaled Oxygen Concentration - - Weight 96.6 kg (213 lb) 02/09/2024 9:12 AM CDT Height 167.6 cm (5' 5.98 ) 02/09/2024 9:12 AM CD T Body Mass Index 34.4 02/09/2024 9:12 AM CDT documented in this encounter Progress Notes * Lalito England MD - 02/09/2024 9:15 AM CDT Images from the original note were not included. [facility] [place] [facility] [place] Chief Complaint. Chief Complaint Patient presents with Follow-up Patient here follow up. Then patient right leg started to hurt, and it gave out on patient. Patientis still having pain when standing up on it. Patient is unable to sleep and hard to get comfy. Patient is set up for PT and now waiting for [facility] to approve the visit. Patient is having surgery on right shoulder to have dark spot taken. Patient is also have appointment with lung On Fri. . Patient is a 73 y.o. female Patient with right sided low back pain and sciatica that has persisted s/p lumbar spine surgery in 2021. Nomi has had more recetn cervical surgery. SHe is using a wheelchair at home at all times. Friends erected ramp and patient is able to move into all rooms of house. She is experiencing no bowel/bladder issues. No incontinence issues. She is having surgery with Dr. Pickett, tomorrow, right shoulder. WIll not be staying overnight. Appetite is good. NO N/V. Sanjanadarwin notes no sig decrease in appetite iweth ozempic. Blood sugars have remained less than 150 fasting. Lower end of 65 with some sypmtoms on diaphoresis and decreased p.o.l intake. Patient sleeping in recliner. Finds it more comforatble than bed. 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 2008.; Comments: [facility] 07/25/2015 - HX OTHER MEDICAL Breast reduction 2009.; Comments: [facility] 07/25/2015 - HX OTHER MEDICAL left hip and leg surgery HX OTHER MEDICAL conversion of previous hip arthroplasty left hip; Comments: [facility] TCU unit 02/06 - 02/17/16 for [...] HIP ARTHROPLASTY Left 02/05/2016 Dr. David Sykes, [facility] - conversion of previous hip arthroplasty left hip: Conversion of Arthroplasty left hip TOTAL KNEE ARTHROPLASTY Left 09/27/2005 Left TKA - Dr. Cole Beckham TOTAL KNEE ARTHROPLASTY Right 08/27/2001 Right TKA - Dr. Light [facility] MEDICATIONS : acetaminophen 500 mg capsule albuterol HFA (PROVENTIL HFA,VENTOLIN HFA,PROAIR HFA) 90 mcg/actuation inhaler apixaban (ELIQUIS) 5 mg tablet aspirin 81 mg enteric coated tablet blood glucose diagnostic (Contour Next Test Strips) strip blood-glucose meter (CONTOUR NEXT USB METER) [facility] calcium carbonate-vitamin D3 500 mg(1,250mg) -400 unit [...] mg tablet triamcinolone (KENALOG) 0.1 % cream methocarbamoL (ROBAXIN) 500 mg tablet naloxone (NARCAN) 4 mg/actuation spray,non-aerosol No Known Allergies Social History Tobacco Use Smoking status: Never Passive exposure: Past Smokeless tobacco: Never Substance and Sexual Activity Drug use: Never Sexual activity: Defer Alcohol Use: Not At Risk (02/03/2024) AUDIT-C [...] of Systems Constitutional: Negative for activity change, fatigue and fever. HENT: Negative for postnasal drip and rhinorrhea. Respiratory: Negative for chest tightness, shortness of breath and wheezing. Cardiovascular: Negative for chest pain and leg swelling. Gastrointestinal: Negative for abdominal pain, blood in stool, constipation, diarrhea, nausea and vomiting. Genitourinary: Negative for dysuria, hematuria and urgency. Musculoskeletal: Positive for arthralgias, back pain and gait problem. Negative for myalgias and neck pain. Skin: Negative for rash. Pending melanoma wide excision tomorrow at [facility]. Neurological: Negative for dizziness, tremors, weakness, light-headedness and headaches. Psychiatric/Behavioral: Negative for dysphoric mood, sleep disturbance and suicidal ideas. The patient is not nervous/anxious. BP 114/60 (BP Location: Left arm, Patient Position: Sitting) Pulse 71 Temp 36.8 ??C (98.2 ??F) (Oral) Resp 18 Ht 167.6 cm (5' 5.98 ) Wt 96.6 kg (213 lb) SpO2 98% Comment: room air BMI 34.40 kg/m?? Physical Exam: Physical Exam Vitals reviewed. Constitutional: General: She is not in acute distress. HENT: Mouth/Throat: Pharynx: No oropharyngeal exudate. Eyes: General: No scleral icterus. Neck: Vascular: No JVD. Cardiovascular: Rate and Rhythm: Normal rate and regular rhythm. Heart sounds: No murmur heard. Pulmonary: Effort: Pulmonary effort is normal. No respiratory distress. Breath sounds: Normal breath sounds. No rhonchi. Chest: Chest wall: No tenderness. Abdominal: General: Bowel sounds are normal. Palpations: Abdomen is soft. Tenderness: There is no left CVA tenderness. Musculoskeletal: Cervical back: Neck [...] Diagnoses and all orders for this visit: Controlled type 2 diabetes mellitus with hyperglycemia, with long-term current use of insulin ([facility]) ([facility]) (Primary) Assessment & Plan: Continue to montior A1c and will follow resopnse. Orders: - CBC with auto differential; Future - Comprehensive metabolic panel; Future - Hemoglobin A1c; Future - Albumin Creatinine Ratio, Urine; Future Melanoma of right upper arm ([facility]) Assessment & Plan: Anticipating definitive excisional therapy with Dr. Pickett tomorrow at [facility]. Type 2 diabetes mellitus with stage 3b chronic kidney disease, with long-term current use of insulin ([facility]) Assessment & Plan: Reivewed blood sugar control and will montior erpsonse. Reivewd kidney disease and reviewed glycmeic control models. Hypertension associated with diabetes (HCC) Assessment & Plan: Stable on the current reimgen. Will monitor respnose. Continues on losartan and will follow response. Type 2 diabetes mellitus with hyperlipidemia (HCC) Assessment & Plan: COntinues on simvastaitn and will monitor ersponse. No new myalgias/arthralgias. Spinal stenosis, lumbar region without neurogenic claudication Assessment & Plan: Looking forward to continuing therapy at home to increase low back pain and mobility. CKD stage 3b, GFR 30-44 ml/min (HCC) Assessment & Plan: Reviewed aggressive blood pressure and glycmeic control. BMI 34.0-34.9,adult Assessment & Plan: Encourage healthy food chcoies and will monitor response. Obesity (BMI 30.0-34.9) Assessment & Plan: As above. BMI Follow-up includes: nutrition counseling and exercise counseling. Body mass index is 34.4 kg/m??. Lalito England MD documented in this encounter Miscellaneous Notes * Assessment & Plan Note - Lalito England MD - 02/09/2024 9:49 AM CDT Associated Problem(s): Obesity (BMI 30.0-34.9) As above. * Assessment & Plan Note - Lalito England MD - 02/09/2024 9:48 AM CDT Associated Problem(s): BMI 34.0-34.9,adult Encourage healthy food chcoies and will monitor response. * Assessment & Plan Note - Lalito England MD - 02/09/2024 9:48 AM CDT Associated Problem(s): CKD stage 3b, GFR 30-44 ml/min (HCC) Reviewed aggressive blood pressure and glycmeic control. * Assessment & Plan Note - Lalito England MD - 02/09/2024 9:48 AM CDT Associated Problem(s): Controlled type 2 diabetes mellitus with hyperglycemia, with long-term current use of insulin (CMS/HCC) (HCC) Continue to montior A1c and will follow resopnse. * Assessment & Plan Note - Lalito England MD - 02/09/2024 9:48 AM CDT Associated Problem(s): Spinal stenosis, lumbar region without neurogenic claudication Looking forward to continuing therapy at home to increase low back pain and mobility. * Assessment & Plan Note - Lalito England MD - 02/09/2024 9:48 AM CDT Associated Problem(s): Type 2 diabetes mellitus with hyperlipidemia (HCC) COntinues on simvastaitn and will monitor ersponse. No new myalgias/arthralgias. * Assessment & Plan Note - Lalito England MD - 02/09/2024 9:47 AM CDT Associated Problem(s): Hypertension associated with diabetes (HCC) Stable on the current reimgen. Will monitor respnose. Continues on losartan and will follow response. * Assessment & Plan Note - Lalito England MD - 02/09/2024 9:47 AM CDT Associated Problem(s): Type 2 diabetes mellitus with stage 3 chronic kidney disease, with long-termcurrent use of insulin (HCC) Reivewed blood sugar control and will montior erpsonse. Reivewd kidney disease and reviewed glycmeic control models. * Assessment & Plan Note - Lalito England MD - 02/09/2024 9:46 AM CDT Associated Problem(s): Melanoma of right upper arm (HCC) (Resolved 04/22/2024) Anticipating definitive excisional therapy with Dr. Pickett tomorrow at [facility]. * Addendum Note - Cecilia Aviles CLT - 02/09/2024 9:15 AM CDTAddended by: CECILIA AVILES on: 02/09/2024 09:49 AM Modules accepted: Orders * Addendum Note - Cecilia Aviles CLT - 02/09/2024 9:15 AM CDTAddended by: CECILIA AVILES on: 02/09/2024 09:50 AM Modules accepted: Orders documented in this encounter Plan of Treatment Not on file documented as of this encounter Results * (ABNORMAL) Hemoglobin A1c (02/09/2024 9:50 AM CDT) [facility] Hgb A1C 6.9(H) 4.0 - 5.6 % Comment:Testing performed by : [facility], [address] [place] [address], [place]., [address] Estimated Average Glucose 151 mg/dL [facility] ([place]) Comment: The ADA recommends reporting an estimated Average Glucose (eAG) with all Hemoglobin A1c results using the equation derived from a study of 507 normal and diabetic adults. ??Minority populations were underrepresented and children were not included. ?? (Diabetes Care 31:2406-6302, 2008). ??The eAG is not equivalent to a fasting glucose. Testing performed by: [address] [address] Blood 02/09/2024 9:50 AM CDT 02/09/2024 1:41 PM CDT Lalito England MD LAB BLOOD ORDERABLES Jessica l Result [facility] ([place]) [address] [facility] Department [place] [address] * (ABNORMAL) Comprehensive metabolic panel (02/09/2024 9:50 AM CDT) Sodium 141 135 - 145 mmol/L Comment:Testing performed by : [address] [address] Potassium, pl 4.0 3.3 - 4.9 mmol/L [facility] ([place]) Comment:Testing performed by : [address], [address] Chloride 102 97 - 110 mmol/L [facility] ([place]) Comment:Testing performed by : [address], [address] CO2 26 22 - 32 mmol/L [facility] ([place]) Comment:Testing performed by : [address], [address] Anion gap 13 2 - 15 mmol/L [facility] ([place]) Comment:Testing performed by : [address], [address] BUN 16 6 - 25 mg/dL [facility] ([place]) Comment:Testing performed by : [address], [address] Creatinine 1.33(H) 0.60 - 1.10 mg/dL [facility] ([place]) Comment:Testing performed by : [address], [address] Glucose 172 70 - 199 mg/dL [facility] ([place]) Comment: Interpretive Data Fasting glucose >/= [...] was last revised 2022. Testing performed by: [facility], [address] [place] [address], [address] Calcium 9.3 8.5 - 10.3 mg/dL [facility] ([place]) Comment:Testing performed by : [address], [address] Bilirubin, total 0.4 0.1 - 1.2 mg/dL [facility] ([place]) Comment:Testing performed by : [address], [address] Protein, pl 6.9 6.5 - 8.5 g/dL [facility] ([place]) Comment:Testing performed by : [address], [address] Albumin 3.6 3.5 - 5.0 g/dL [facility] ([place]) Comment:Testing performed by : [address], [address] Alk phos 72 40 - 130 Units/L [facility] ([place]) Comment:Testing performed by : [address], [address] ALT 13 7 - 45 Units/L [facility] ([place]) Comment:Testing performed by : [address], [address] AST 24 10 - 45 Units/L [facility] ([place]) Comment:Testing performed by : [address], [address] Blood 02/09/2024 9:50 AM CDT 02/09/2024 1:41 PM CDT us Lalito England MD LAB BLOOD ORDERABLES Jessica l Result [facility] ([place]) [address] [facility] Department [place] [address] * (ABNORMAL) CBC with auto differential (02/09/2024 9:50 AM CDT) [facility] WBC 7.4 3.8 - 9.9 K/cumm Comment:Testing performed by : [address], [address] Hgb 10.4(L) 11.9 - 15.5 g/dL [facility] ([place]) Comment:Testing performed by : [address], [address] Hct 32.6(L) 35.6 - 45.5 % [facility] ([place]) Comment:Testing performed by : [address], [address] Plt 194 150 - 400 K/cumm [facility] ([place]) Comment:Testing performed by : [address], [address] MPV 10.0 9.1 - 12.3 fL [facility] ([place]) Comment:Testing performed by : [address], [address] RBC 3.59(L) 3.90 - 5.20 M/cumm [facility] ([place]) Comment:Testing performed by : [address], [address] MCV 90.8 81.3 - 96.4 fL [facility] ([place]) Comment:Testing performed by : [address], [address] MCH 29.0 27.1 - 33.3 pg [facility] ([place]) Comment:Testing performed by : [address], [address] MCHC 31.9(L) 32.3 - 35.7 g/dL [facility] ([place]) Comment:Testing performed by : [address], [address] RDW CV 15.9(H) 11.1 - 14.9 % [facility] ([place]) Comment:Testing performed by : [address], [address] RDW SD 53.5(H) 35.7 - 48.1 fL [facility] ([place]) Comment:Testing performed by : [facility], [address] [place] [address]., [address] NRBC abs 0.00 0.00 - 0.01 K/cumm [facility] ([place]) Comment:Testing performed by : [facility], [address] [place] [address]., [address] Blood 02/09/2024 9:50 AM CDT 02/09/2024 1:41 PM CDT Lalito England MD LAB BLOOD ORDERABLES Jessica l Result Performing Organization Address City/[facility]/ZIP Co de Phone Number [facility] ([place]) [address] [facility] [place] [address] * (ABNORMAL) Albumin Creatinine Ratio, Urine (02/09/2024 9:50 AM CDT) Albumin Ur 54.8 mg/L Comment: Interpretive Data No reference range established. Current interpretive data was last revised 2018. Testing performed by: [facility], [address] [place] [address]., [address] Creatinine Ur 59.2 mg/dL [facility] ([place]) Comment: Interpretive Data No reference range established. Current interpretive data was last revised 2018. Testing performed by: [facility], [address] [place] [address]., [address] Albumin Creatinine Ratio, Ur 93(H) 1 - 29 mg/g [facility] ([place]) Comment:Testing performed by : [address] [address] Urine 02/09/2024 9:50 AM CDT 02/09/2024 1:41 PM CDT Lalito England MD LAB URINE ORDERABLES Jessica l Result Performing Organization Address City/[facility]/ZIP Co de Phone Number [facility] ([place]) 1 [facility] Department [place] [place] [address] documented in this encounter Visit Diagnoses Diagnosis Controlled type 2 diabetes mellitus with hyperglycemia, with long-term current use of insulin (CMS/HCC) (HCC)- Primary Melanoma of right upper arm (HCC) Type 2 diabetes mellitus with stage 3b chronic kidney disease, with long-term current use of insulin (HCC) Hypertension associated with diabetes (HCC) Unspecified essential hypertension Type 2 diabetes mellitus with hyperlipidemia (HCC) Spinal stenosis, lumbar region without neurogenic claudication CKD stage 3b, GFR 30-44 ml/min ([facility]) BMI 34.0-34.9,adult Obesity (BMI 30.0-34.9) documented in this encounter Care Teams Trailer Rental Clerk Relationship Specialty Start Date End Date Lalito England MD [address] [place] [address] PCP - General 08/03/19 documented as of this encounter
--- OUTSIDE RECORDS SUMMARY | 2024-07-11 22:34 | XMS_ITS | Encounter Summary ---
Author Organization [facility] Healthcare Address [address] [place] [address] Care Team Providers Care Manager Medical Name Role Phone Lalito England MD Primary Care Provider [phone] Reason for Visit * Reason Onset Date Comments Medical Question/Miscellaneous 02/16/2024 Encounter Details Date Type Department Care Team (Late st Contact Info) Description 02/16/2024 Telephone [facility] [address] [facility] [place] [address] Lalito England MD [address] [facility] [address] Medical Question/Miscellaneous Social History Tobacco Use Types Packs/Day Years Used Date Smoking Tobacco: Never Passive Smoke Exposure: Past Smokeless Tobacco: Never Alcohol Use Standard Drinks/Week Comments Yes 0 (1 standard drink = 0.6 oz pur e alcohol) occasional C Utilities Answer Date Recorded In the past 12 months has [place], gas, oil, or water [employer] threatened to shut off services in your [...] you attend formerly [facility] or yarsanism services? 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 * Telephone Encounter - Radha Morley - 02/27/2024 3:20 PM CDT Medical Question/Miscellaneous Caller???s Concern: Naomy with [facility] calling to add on 4 additional PT visits to their [facility] Referral. Does message need to be routed? Yes-Action Needed * Telephone Encounter - Daisy Lui - 02/16/2024 1:34 PM CDT Faxed. * Telephone Encounter - Amena James - 02/16/2024 1:29 PM CDT Medical Question/Miscellaneous Caller???s Concern: [facility] most recent office visitnote in order to get the correct diagnose code for patient. The office visit notes can be sent to fax number [phone] Does message need to be routed? Yes-Action Needed documented in this encounter Plan of Treatment Not on file documented as of this encounter Visit Diagnoses Not on filedocumented in this encounter Care Teams Manager Medical Relationship Specialty Start Date End Date [place] [address] PCP - General 08/03/19 documented as of this encounter
--- OUTSIDE RECORDS SUMMARY | 2024-07-11 22:34 | XMS_ITS | Encounter Summary ---
Author Organization [facility] Healthcare Address [address] [place] [address] Care Team Providers Care Skidway Man Name Role Phone Lalito England MD Primary Care Provider [phone] Encounter Details Date Type Department Care Team (Late st Contact Info) Description 02/13/2024 Telephone [facility] [address] [facility] [place] [address] Lalito England MD [address] [place] [address] Social History Tobacco Use Types Packs/Day Years Used Date Smoking Tobacco: Never Passive Smoke Exposure: Past Smokeless Tobacco: Never Alcohol Use Standard Drinks/Week Comments Yes 0 (1 standard drink = 0.6 oz pur e alcohol) occasional [facility] Utilities Answer Date Recorded In the past 12 months has [employer], gas, oil, or water [employer] threatened to shut off services in your [...] How often do you attend chur or gnosticist services? 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 Please fax info to [phone] documented in this encounter Plan of Treatment Not on file documented as of this encounter Visit Diagnoses Not on filedocumented in this encounter Care Teams Skidway Man Relationship Specialty Start Date End [place] [address] PCP - General 08/03/19 documented as of this encounter
--- OUTSIDE RECORDS SUMMARY | 2024-07-11 22:34 | XMS_ITS | Encounter Summary ---
Author Organization [facility] Healthcare Address [address] [place] [address] Care Team Providers Care Detention Sergeant Name Role Phone Lalito England MD Primary Care Provider [phone] Encounter Details Date Type Department Care Team (Late st Contact Info) Description 02/09/2024 9:50 AM CDT Lab [facility] [address] [id number] Controlled type 2 diabetes mellitus with hyperglycemia, with long-term current use of insulin (CMS/HCC) ([facility]) Social History Tobacco Use Types Packs/Day Years Used Date Smoking Tobacco: Never Passive Smoke Exposure: Past Smokeless Tobacco: Never Alcohol Use Standard Drinks/Week Comments Yes 0 (1 standard drink = 0.6 oz pur e alcohol) occasional C Utilities Answer Date Recorded In the past 12 months has [employer], gas, oil, or water [employer] threatened to shut off services in your [...] often do you attend chur ch or voodoo services? Never 01/19/2024 Do you belong to any clubs o r organizations such as adventist groups, unions, fraternal or athletic groups, or [...] on file Legal Sex Female 11:52 PM KILN STOKER Gender Identity Not on file Sexual Orientation Not on file documented as of this encounter Plan of Treatment Not on file documented as of this encounter Procedures Procedure Name Priority Date/Time Associated Diagnosis Comments EGFR Routine 02/09/2024 9:50 AM CDT Controlled type 2 diabetes mellitus with hyperglycemia, with long-term current use of insulin (CMS/HCC) (HCC) DIFFERENTIAL AUTO Routine 02/09/2024 9:5 0 AM CDT Controlled type 2 diabetes mellitus with hyperglycemia, with long-term current use of insulin (CMS/HCC) (HCC) CBC WITH AUTO DIFFERENTIAL Routine 02/09/2024 9:50 AM CDT Controlled type 2 diabetes mellitus with hyperglycemia, with long-term current use of insulin (CMS/HCC) (HCC) ALBUMIN CREATININE RATIO, URINE Routine 02/09/2024 9:50 AM CDT Controlled type 2 diabetes mellitus with hyperglycemia, with long-term current use of insulin (CMS/HCC) (HCC) HEMOGLOBIN A1C Routine 02/09/2024 9:50 AM CDT Controlled type 2 diabetes mellitus with hyperglycemia, with long-term current use of insulin (CMS/HCC) (HCC) COMPREHENSIVE METABOLIC PANEL Routine 02/09/2024 9:50 AM CDT Controlled type 2 diabetes mellitus with hyperglycemia, with long-term current use of insulin (CMS/HCC) (HCC) documented in this encounter Results * (ABNORMAL) eGFR (02/09/2024 9:50 AM CDT) eGFR 42(L) >=60 mL/min/1. 73 m2 Comment: Interpretive Data [...] was last reviewed 2021. Testing performed by: [facility], [address] [place] [address]., [id number] Blood 02/09/2024 9:50 AM CDT 02/09/2024 1:55 PM CDT us Lalito England MD LAB BLOOD ORDERABLES Jessica l Result ANN CUADRA DIGHTON) [address] [facility] Department [place] [address] * Differential, auto (02/09/2024 9:50 AM CDT) Pathologist [facility] Neutrophil abs 5.3 1.5 - 6.5 K/cumm Comment:Testing performed by : [address] [address] Imm gran abs 0.0 0.0 - 0.1 K/cumm [facility] ([place]) Comment:Testing performed by : [facility], [address] [place] [address]., [id number] Lymphocyte abs 1.3 0.8 - 3.3 K/cumm [facility] ([place]) Comment:Testing performed by : [facility], [address] [place] [address]., [address] Monocyte abs 0.6 0.2 - 0.8 K/cumm [facility] ([place]) Comment:Testing performed by : [facility], [address] [place] [address]., [address] Eosinophil abs 0.2 0.0 - 0.5 K/cumm [facility] ([place]) Comment:Testing performed by : [facility], [address] [place] [address]., [address] Basophil abs 0.1 0.0 - 0.1 K/cumm [facility] ([place]) Comment:Testing performed by : [facility], [address] [place] [address]., [address] Neutrophil pct 71.0 % [facility] ([place]) Comment: Interpretive Data Percent cell count reference ranges are not reported, since discordance with absolute values may lead to misinterpretation of CBC data. Current Interpretive Data was last revised on 2017. Testing performed by: [facility], [address] [place] [address]., [address] Imm gran pct 0.3 % [facility] ([place]) Comment: Interpretive Data Percent cell count reference ranges are not reported, since discordance with absolute values may lead to misinterpretation of CBC data. Current Interpretive Data was last revised on 2017. Testing performed by: [facility], [address] [place] [address]., [address] Lymphocyte pct 17.7 % [facility] ([place]) Comment: Interpretive Data Percent cell count reference ranges are not reported, since discordance with absolute values may lead to misinterpretation of CBC data. Current Interpretive Data was last revised on 2017. Testing performed by: [facility], [address] [place] [address]., [address] Monocyte pct 8.1 % [facility] ([place]) Comment: Interpretive Data Percent cell count reference ranges are not reported, since discordance with absolute values may lead to misinterpretation of CBC data. Current Interpretive Data was last revised on 2017. Testing performed by: [facility], [address] [place] [address]., [address] Eosinophil pct 2.2 % ANDRIA CUADRA ([place]) Comment: Interpretive Data Percent cell count reference ranges are not reported, since discordance with absolute values may lead to misinterpretation of CBC data. Current Interpretive Data was last revised on 2017. Testing performed by: [facility], [address] [place] [address], [address] Basophil pct 0.7 % ANN CUADRA ([place]) Comment: Interpretive Data Percent cell count reference ranges are not reported, since discordance with absolute values may lead to misinterpretation of CBC data. Current Interpretive Data was last revised on 2017. Testing performed by: [address], [address] Blood 02/09/2024 9:50 AM CDT 02/09/2024 1:41 PM CDT us Lalito England MD LAB BLOOD ORDERABLES Jessica l Result ANN CUADRA ([place]) 1 [facility] Department [place] [address] * (ABNORMAL) CBC with auto differential (02/09/2024 9:50 AM CDT) WBC 7.4 3.8 - 9.9 K/cumm Comment:Testing performed by : [address] [address] Hgb 10.4(L) 11.9 - 15.5 g/dL ANN CUADRA ([place]) Comment:Testing performed by : [address] [address] Hct 32.6(L) 35.6 - 45.5 % ANN CUADRA ([place]) Comment:Testing performed by : [address], [address] Plt 194 150 - 400 K/cumm [facility] ([place]) Comment:Testing performed by : [facility], [address] [place] [address], [address] MPV 10.0 9.1 - 12.3 fL [facility] ([place]) Comment:Testing performed by : [facility], [address] [place] [address], [address] RBC 3.59(L) 3.90 - 5.20 M/cumm [facility] ([place]) Comment:Testing performed by : [facility], [address] [place] [address], [address] MCV 90.8 81.3 - 96.4 fL [facility] ([place]) Comment:Testing performed by : [address], [address] MCH 29.0 27.1 - 33.3 pg [facility] ([place]) Comment:Testing performed by : [address], [address] MCHC 31.9(L) 32.3 - 35.7 g/dL [facility] ([place]) Comment:Testing performed by : [address], [address] RDW CV 15.9(H) 11.1 - 14.9 % [facility] ([place]) Comment:Testing performed by : [address], [address] RDW SD 53.5(H) 35.7 - 48.1 fL [facility] ([place]) Comment:Testing performed by : [address], [address] NRBC abs 0.00 0.00 - 0.01 K/cumm [facility] ([place]) Comment:Testing performed by : [address], [address] Blood 02/09/2024 9:50 AM CDT 02/09/2024 1:41 PM CDT us Lalito England MD LAB BLOOD ORDERABLES Jessica rodolfo Result [facility] ([place]) 1 [facility] [place] [place] [address] * (ABNORMAL) Comprehensive metabolic panel (02/09/2024 9:50 AM CDT) Sodium 141 135 - 145 mmol/L Comment:Testing performed by : [facility], [address] [place] [address]., [address] Potassium, pl 4.0 3.3 - 4.9 mmol/L [facility] ([place]) Comment:Testing performed by : [facility], [address] [place] [address]., [address] Chloride 102 97 - 110 mmol/L [facility] ([place]) Comment:Testing performed by : [facility], [address] [place] [address], [address] CO2 26 22 - 32 mmol/L [facility] ([place]) Comment:Testing performed by : [facility], [address] [place] [address]., [address] Anion gap 13 2 - 15 mmol/L [facility] ([place]) Comment:Testing performed by : [address] [address] BUN 16 6 - 25 mg/dL [facility] ([place]) Comment:Testing performed by : [facility], [address] [place] [address]., [address] Creatinine 1.33(H) 0.60 - 1.10 mg/dL [facility] ([place]) Comment:Testing performed by : [facility], [address] [place] [address]., [address] Glucose 172 70 - 199 mg/dL [facility] ([place]) [...] was last revised 2022. Testing performed by: [facility], [address] [place] [address]., [address] Calcium 9.3 8.5 - 10.3 mg/dL [facility] ([place]) Comment:Testing performed by : [facility], [address] [place] [address], [address] Bilirubin, total 0.4 0.1 - 1.2 mg/dL [facility] ([place]) Comment:Testing performed by : [facility], [address] [place] [address], [address] Protein, pl 6.9 6.5 - 8.5 g/dL [facility] ([place] Comment:Testing performed by : [facility], [address] [place] [address], [address] Albumin 3.6 3.5 - 5.0 g/dL [facility] ([place]) Comment:Testing performed by : [address], [address] Alk phos 72 40 - 130 Units/L [facility] ([place]) Comment:Testing performed by : [address], [address] ALT 13 7 - 45 Units/L [facility] ([place]) Comment:Testing performed by : [facility], [address] [place] [address], [address] AST 24 10 - 45 Units/L [facility] ([place]) Comment:Testing performed by : [address], [address] Blood 02/09/2024 9:50 AM CDT 02/09/2024 1:41 PM CDT Lalito England MD LAB BLOOD ORDERABLES Jessica l Result [facility] ([place]) 1 [facility] Department [place] [address] * (ABNORMAL) Hemoglobin A1c (02/09/2024 9:50 AM CDT) Hgb A1C 6.9(H) 4.0 - 5.6 % Comment:Testing performed by : [address], [address] Estimated Average Glucose 151 mg/dL [facility] ([place]) Comment: The ADA recommends reporting an estimated Average Glucose (eAG) with all Hemoglobin A1c results using the equation derived from a study of 507 normal and diabetic adults. ??Minority populations were underrepresented and children were not included. ?? (Diabetes Care 31:7571-8867, 2008). ??The eAG is not equivalent to a fasting glucose. Testing performed by: [address] [address] Blood 02/09/2024 9:50 AM CDT 02/09/2024 1:41 PM CDT Lalito England MD LAB BLOOD ORDERABLES Jessica l Result ANN CUADRA ([place]) 1 [facility] [employer] [place], [place] [id number] * (ABNORMAL) Albumin Creatinine Ratio, Urine (02/09/2024 9:50 AM CDT) Albumin Ur 54.8 mg/L Comment: Interpretive Data No reference range established. Current interpretive data was last revised 2018. Testing performed by: [facility], [address] [place] [address]., [address] Creatinine Ur 59.2 mg/dL ANN CUADRA ([place]) Comment: Interpretive Data No reference range established. Current interpretive data was last revised 2018. Testing performed by: [address] [address] Albumin Creatinine Ratio, Ur 93(H) 1 - 29 mg/g ANN CUADRA ([place]) Comment:Testing performed by : [address] [address] Urine 02/09/2024 9:50 AM CDT 02/09/2024 1:41 PM CDT Lalito England MD LAB URINE ORDERABLES Jessica l Result Performing Organization Address City/[facility]/ZIP Co de Phone Number ANN CUADRA ([place]) 1 [facility] [employer] [place] [address] documented in this encounter Visit Diagnoses Diagnosis Controlled type 2 diabetes mellitus with hyperglycemia, with long-term current use of insulin ([facility]) (HCC) documented in this encounter Care Teams Detention Sergeant Relationship Specialty Start Date End Date Lalito England MD [address] [place] [address] PCP - General 08/03/19 documented as of this encounter
--- OUTSIDE RECORDS SUMMARY | 2024-07-11 22:34 | XMS_ITS | Encounter Summary ---
Author Organization [facility] Healthcare Address [address] [place] [address] Care Team Providers Care Rn Private Duty Name Role Phone Lalito England MD Primary Care Provider [phone] Reason for Visit * Auth/Cert (Routine) Specialty Diagnoses / Procedures Referred By Contac t Referred To Contact Diagnoses 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) [C43.61] Procedures PA DESTRUCTION MAL LESION TRUNK/ARM/LEG 1.1-2.0CM PA ADJT/REARRGMT SCALP/ARM/LEG 10.1-30.0 SQ CM WIDE EXCISION MELANOMA RIGHT SHOULDER ; ADJACENT TISSUE TRANSFER (GENERAL, 1% LIDO WITH EPI) Referral ID Status Reason Start Date Expiration Date Visits Re quested Visits Authorized [id number] 1 1 Encounter Details Date Type Department Care Team (Late st Contact Info) Description 02/10/2024 8:41 AM CDT - 02/10/2024 12:13 PM CDT Hospital Encounter [facility] Operating Room 1 [place] [address] Mark Pickett MD [address] [id number] [place] [address] 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 (HCC) Discharge Disposition: Discharge to home or self care Social History Tobacco Use Types Packs/Day Years Used Date Smoking Tobacco: Never Passive Smoke Exposure: Past Smokeless Tobacco: Never Alcohol Use Standard Drinks/Week Comments Yes 0 (1 standard drink = 0.6 oz pur e alcohol) occasional [facility] Utilities Answer Date Recorded In the past [...] often do you attend chur ch or evangelical services? Never 01/19/2024 Do you belong to any clubs o r organizations such as sabianist groups, unions, fraternal or athletic groups, or [...] in the past 12 m 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 Gender Identity Not on file Sexual Orientation Not on file documented as of this encounter Last Filed Vital Signs Vital Sign Reading Time Taken Comments Blood Pressure 122/50 02/10/2024 12:05 PM CDT sitting Pulse 66 02/10/2024 12:00 PM CDT Temperature 35.6 ??C (96 ??F) 02/10/2024 12: 00 PM CDT Respiratory Rate 16 02/10/2024 12:0 0 PM CDT Oxygen Saturation 98% 02/10/2024 12: 00 PM CDT Inhaled Oxygen Concentration - - Weight 96.1 kg (211 lb 13.8 oz) 02/10/2024 8:52 AM CDT Height 167.6 cm (5' 6 ) 02/10/2024 8:52 AM CDT Body Mass Index 34.2 02/10/2024 8:52 AM CDT documented in this encounter Discharge Instructions * Attachments The following attachments cannot be sent through Care Everywhere. * Care After General Anesthesia (Discharge Care) (Divehi) * Cephalexin (By mouth) (Divehi) documented in this encounter Medications at Time [...] 1 tablet (81 mg total) by mouth landscape photographer before breakfast Do not restart until 2 weeks after surgery (12/07) 12/08/2023 blood glucose diagnostic (Contour Next Test Strips) strip TEST BLOOD SUGAR 3 TIMES A DAY AND WILL MONTIOR RESPONSE. DX: E11.22. 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 ([facility]) ([facility]) 01/06/2024 Secondary hyperparathyroidism of renal origin ([facility]) 01/06/2024 Cervical stenosis of spine [...] 2 diabetes mellitus with diabetic neuropathy, unspecified ([facility]) 01/18/2022 Unsteadiness on feet 01/18/2022 Type 2 diabetes mellitus with hyperlipidemia ([facility]) 01/17/2022 Chronic back pain 01/17/2022 Weakness of both lower extremities 01/16/2022 Lumbar radiculopathy 12/06/2021 Sacroiliitis ([facility]) 09/07/2021 Cervicalgia 09/07/2021 Low back pain 09/07/2021 Insomnia secondary to chronic pain 09/07/2021 Degenerative cervical spinal stenosis 09/07/2021 Degenerative disc disease, cervical 09/07/2021 CKD (chronic kidney disease) stage 4, GFR 15-29 ml/min ([facility]) ([facility]) 08/23/2021 Morbid (severe) obesity due to excess calories ([facility]) 08/22/2021 DDD (degenerative disc disease), lumbar 08/17/2021 Degenerative lumbar spinal stenosis 08/17/2021 Lumbar post-laminectomy syndrome 08/17/2021 Persistent vomiting 11/17/2018 Hx of colonic polyps 09/04/2018 Family hx of colon cancer 09/04/2018 Healthcare maintenance 12/27/2016 Medication management 12/27/2016 Idiopathic osteoporosis with pathological fracture 08/14/2015 Arthralgia of hip 07/21/2015 Adenomatous polyp of colon 04/08/2015 Sarcoidosis of lung ([facility]) 04/08/2015 Fever 08/25/2014 Type 2 diabetes mellitus with stage 3 chronic kidney disease, with long-term current use of insulin([facility]) 11/27/2013 Severe obesity (BMI 35.0-39.9) with comorbidity ([facility]) 11/27/2013 Hyperlipidemia 04/01/2012 Disorder of peripheral nervous system ([facility]) 04/01/2012 Hypertension associated with diabetes ([facility]) 04/01/2012 Past Medical History: Diagnosis Date Asthma Benign hypertension with CKD (chronic kidney disease) stage III ([facility]) Cervicalgia 11/24/2023 Dvt femoral (deep venous thrombosis) ([facility]) ([facility]) r eg Gastroesophageal reflux disease GERD HX OTHER MEDICAL 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 2008.; Comments: [facility] 07/25/2015 - HX OTHER MEDICAL Breast reduction 2008.; Comments: [facility] 07/25/2015 - HX OTHER MEDICAL left hip and leg surgery HX OTHER MEDICAL conversion of previous hip arthroplasty left hip; Comments: [facility] TCU unit 02/06 - 02/17/16 [...] HIP ARTHROPLASTY Left 02/05/2016 Dr. David Sykes, [facility] - conversion of previous hip [...] 1 tablet (81 mg total) by mouth landscape photographer before breakfast Do not restart until 2 weeks after surgery (12/07) blood glucose diagnostic (Contour Next Test Strips) strip -- 09/11/23 -- Lalito England MD TEST BLOOD SUGAR 3 TIMES A DAY AND WILL MONTIOR RESPONSE. DX: E11.22. blood-glucose meter (CONTOUR NEXT USB METER) [facility] -- 07/04/14 -- Clayton Sandoval MD test [...] a day before meals lancets (MICROLET LANCET) [facility] -- 07/26/15 -- Clayton Sandoval MD test [...] Informed Consent: Discussed plan with attending and ATHLETIC SCOUT. Anesthesia plan and risks discussed with patient. [...] itch on occasion. Was biopsied by her switchboard installer with the above-noted diagnosis. I recommended wide [...] using voice recognition software without a human mortgage lender. Itmay contain typographical, grammatical, and/or syntax errors. * Brief Op Note - Mark Pickett MD - 02/10/2024 9:54 AM CDT Operative Progress Note Surgical Team: Surgeons and Role: * Mark Pickett MD - Primary Anesthesiologist: Naseem Jeff MD ATHLETIC SCOUT: Kaila Gilliam CRNA Crew Car Driver: Candace Enciso RN Scrub: Maty Coles RN; Brandy Garcia LPN COMPUTER NETWORKING INSTRUCTOR ADJUNCT: Kassi Denson RN DATE OF SURGERY : [...] Falcon RN - 02/03/2024 3:23 PM CDT [phone] We are pleased that you and your doctor have chosen [facility] for your surgery. We hope that [...] Take as prescribed Use no make-up, nail luxembourgish, lotions, oils or powders on your skin. [...] down the [place] until you see the [place]/coffee shop, there will be elevators to the [...] Lab Test (02/10/2024 2:58 PM CDT) Pathologist [facility] lab See Comment Comment: See Scanned Report Testing performed by: [facility], [address] [place] [address]., [id number] Miscellaneous 02/10/2024 2:5 8 PM CDT 02/19/2024 10:30 AM CDT us Grace Fisher MD LAB BLOOD ORDERABLES Final Re sult [facility] 1 [facility] Department [place] [address] * Surgical pathology (02/10/2024 1:55 PM CDT) Tissue (Skin, wide excision) 02/10/2024 9:57 AM CDT Comment:Short proximal, long anterior Narrative PATHOLOGY [facility] ([facility]) - 02/16/2024 2:35 PM CDT EPIC results best viewed via link to PDF [facility] Department of Pathology [address] [place] [address] Note to Patients: This report may contain [...] with Addendum Patient Name: ??CRISS LY Address: ??[address] [place] [address], ??[place], [place] ??[address]- Gender: ??F : ??1950 (Age: 73) Service: ??Surgery Location: ??FORMERLY [facility], [facility] Hospital #: ??[id number] Patient Type: ??[facility] Accession # ?[id number] Taken: ??02/10/2024 Received: ??02/10/2024 Accessioned: ??02/10/2024 Reported: ??02/16/2024 Physician(s):Mark Juarez M.D. Diagnosis: A. Right shoulder melanoma, wide local excision- ? Residual melanoma with associated melanoma in-situ ? Associated biopsy changes ? Pending outside consultation ? See microscopic description Grace Fisher M.D. Report Electronically Reviewed and Signed Out By ??Grace Fisher M.D. ??02/16/2024 14:35:49 Procedure/Addenda: Addendum Addendum Comment The external consult report from [facility] ([id number]) has been finalized and is attached. For the statistical consultant? ? s comment, please see scanned image of report or the report can be viewed in the Electronic Medical Record of the patient. ??If access to the EMR is not available, please call pathology for a hard copy of the report ([phone]). ?? A. Right shoulder, [id number], 02/10/2024: ? Re-excision of malignant melanoma ([id number]; specimen collection date 09/26/2023) ? Ulceration present, [...] made of the patient's outside biopsy material ([employer], [id number]) reporting a malignant melanoma from right posterior [...] blue and the 6-9-12 o'clock side black. ??Cork Floor Installer sections are submitted: A1 through A6 entire [...] determined by the Surgical Pathology Department at [facility] as part of an ongoing quality supervisor program and in compliance with federally mandated [...] characteristics determined by the Surgical Pathology Department [facility]. ??It has not been cleared or approved by the U. S. Food and Drug Administration. Note for decalcified specimens: This assay has not been validated on decalcified tissues. Results should be interpreted with caution given the possibility of false negativity on decalcified specimens us Mark Pickett MD LAB PATHOLOGY ORDERA BLES Final Result PATHOLOGY [facility] 1 [place] [address] * POCT glucose (02/10/2024 10:39 AM CDT) Glucose, POC 182 70 - 199 mg/dL Blood 02/10/2024 10:3 9 AM CDT 02/10/2024 10:39 AM CDT Mark Pickett MD LAB POCT ORDERABLES - DEVICE Final Result Performing Organization Address [facility] Co de Phone Number [facility] ([place]) [address] [facility] [place] [address] * Potassium, whole blood (02/10/2024 9:11 AM [...] ORDERABLES Fin al Result Performing Organization Address [facility] Co de Phone Number [facility] ([place] [address] [facility] [place] [address] * POCT glucose (02/10/2024 9:07 AM CDT) Glucose, POC 185 70 - 199 mg/dL Blood 02/10/2024 9:07 AM CDT 02/10/2024 9:07 AM CDT Mark Pickett MD LAB POCT ORDERABLES - DEVICE Final Result Performing Organization Address [facility] Co de Phone Number [facility] ([place]) [address] [facility] [place] [address] documented in this encounter Visit Diagnoses Diagnosis 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 (HCC)- Primary documented in this encounter Admitting Diagnoses Diagnosis 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 (HCC) documented in this encounter Administered Medications Inactive Administered Medications - up to 3 most recent administrations Medication Order MAR Action Action Date Dose Rate Site sodium chloride 0.9% infusion 30 mL/hr, [...] Anesthesia 0945 (Given - Provid er: Mark Pickett MD) sodium chloride 0.9% irrigation (CANCELED) As [...] 02/10/2024 gabapentin (NEURONTIN) capsule 300 mg 1 lidocaine-EPINEPHrine (XYLOC CLIFF with EPI) 1 %-1:200,000 preservative free injection 1 02/10/2024 naloxone (NARCAN) 0.4 mg/mL injection 0.04-0.4 mg 1 02/10/2024 sodium chloride 0.9% flush 0.5-20 mL 2 01/13 sodium chloride 0.9% irrigation 1 Diet Count Last Ordered Date First Orde red Date ADULT DISCHARGE DIET 1 02/10/2024 Nursing Count Last Ordered Date First Orde red Date DISCHARGE ACTIVITY 1 02/10/2024 DISCHARGE CALL PROVIDER 6 02/10/2024 DISCHARGE DRESSING 1 02/10/2024 Discharge Count Last Ordered Date First Orde red Date DISCHARGE PATIENT 1 02/10/2024 documented in this encounter Care Teams Rn Private Duty Relationship Specialty Start Date End Date Lalito England MD [address] [place] [address] PCP - General 08/03/19 documented as of this encounter
--- OUTSIDE RECORDS SUMMARY | 2024-07-11 22:34 | XMS_ITS | Encounter Summary ---
Author Organization [facility] Address [address] [place] [address] Phone Care Team Providers Care Ground Host/Hostess Name Role Phone Lalito England MD Primary Care Provider [phone] Parvin Whelan RN Unavailable [phone] Encounter Details Date Type Department Care Team (Late st Contact Info) Description 01/07/2024 Telephone [facility] [address] [facility] [address] [place] [address] Brennan Castillo MD [address] [place], [place] [id number] Social History Tobacco Use Types Packs/Day Years Used Date Smoking Tobacco: Never Passive Smoke Exposure: Past Smokeless Tobacco: Never Alcohol Use Standard Drinks/Week Comments Yes 0 (1 standard drink = 0.6 oz pur e alcohol) occasional [facility] Utilities Answer Date Recorded In the past 12 months has [employer] electric, gas, oil, or water company threatened [...] often do you attend chur ch or sabianist services? 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 * Telephone Encounter - Anneliese Anaya RN - 01/13/2024 3:27 PM CDT Called below number and spoke to Priti. She is calling from patients dental office. Asking if its okay for patient to have dental work. Made her aware this should be okay if they can keep an neutral alignment with no flexing or extending the neck for at least 2 months postop. Does not need to be pretreated with abx from nsgy standpoint. If she has had other prior surgeries, should confirm with those providers as well. * Telephone Encounter - Sara Guo - 01/13/2024 3:10 PM CDT Priti from facility called on behalf of the pt, the pt is in the clinic now. Priti wants to talk to the nurse now, please call [phone] * Telephone Encounter - Sola Banks CMA - 01/09/2024 9:49 AM CDT 3 mo f/u appt was scheduled with patient in clinic. EOS films and cervical xrays are needed day of appt * Telephone Encounter - Sola Banks CMA - 01/07/2024 8:09 AM CDT Per the patient's most recent office visit, the provider's plan is as follows... Follow-up: 3 Months with an ADIS In Person ... with XR EOS AP, LAT, Flexion, and Extension at next appointment. Imaging/Diagnostics: XR EOS AP, LAT, Flexion, and Extension Protocol - General/Normal Location - [facility] Expected Time Frame - prior to appt Imaging/Diagnostics: XR Cervical AP and LAT Protocol - General/Normal Location - [facility] Expected Time Frame - prior to appt Pt would like to be notified of their scheduled appointments via During office visit (in-person) documented in this encounter Plan of Treatment Not on file documented as of this encounter Visit Diagnoses Not on filedocumented in this encounter Care Teams Ground Host/Hostess Relationship Specialty Start Date End Date [place] [address] PCP - General 08/03/19 Parvin Whelan RN [address] [place] [address] [place] [address] [employer] Architect 12/19/23 01/18/24 documented as of this encounter
--- OUTSIDE RECORDS SUMMARY | 2024-07-11 22:34 | XMS_ITS | Encounter Summary ---
Author Organization [facility] Healthcare Address [address] [place] [address] Care Team Providers Care Risk Professional Name Role Phone Lalito England MD Primary Care Provider [phone] Encounter Details Date Type Department Care Team (Late st Contact Info) Description 12/12/2023 Telephone [facility] [address] [facility] [place] [address] Lalito England MD [address] [place] [address] Social History Tobacco Use Types Packs/Day [...] in a snf (including now)? No 07/16/2022 Personal Safety Answer Date Recorded Have you ever been in or are you currently in a harmful physical or emotional relationship or is someone making you feel afraid or unsafe? 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 Samanta Aldana from [facility] ([phone]) needing verbal if you will follow home health orders for fci, PT, and OT. Verbal auth given documented in this encounter Plan of Treatment Not on file documented as of this encounter Visit Diagnoses Not on filedocumented in this encounter Care Teams Risk Professional Relationship Specialty Start Date End Date [place] [place] [address] PCP - General 08/03/19 documented as of this encounter
--- OUTSIDE RECORDS SUMMARY | 2024-07-11 22:35 | XMS_ITS | Encounter Summary ---
Author Organization [facility] Healthcare Address [address] [place] [address] Care Team Providers Care Perinatal Breastfeeding Assistant Name Role Phone Lalito England MD Primary Care Provider [phone] Reason for Visit * Auth/Cert (Routine) Specialty Diagnoses / Procedures Referred By Contac t Referred To Contact Diagnoses Cervicalgia Cervicalgia [M54.2] Procedures WV ARTHRODESIS POSTERIOR/POSTERIORLATERAL CERVICAL BELOW C2 WV LIND FACETECTOMY & FORAMOTOMY 1 VRT SGM CERVICAL WV ARTHRD PST/PSTLAT TQ 1NTRSPC CRV BELW C2 SEGMENT WV ARTHRODESIS PST/PSTLAT TQ 1NTRSPC EA ADDL NTRSPC WV ARTHRODESIS PST/PSTLAT TQ 1NTRSPC EA ADDL NTRSPC WV POSTERIOR SEGMENTAL INSTRUMENTATION 3-6 VRT SEG WV AUTOGRAFT SPINE SURGERY LOCAL FROM SAME INCISION WV ALLOGRAFT FOR SPINE SURGERY ONLY MORSELIZED FUSION CERVICAL/THORACIC - POSTERIOR WITH INSTRUMENTATION; C6-T2 posterior spinal fusion with a C7-T1 decompression and bilateral foraminotomies SPINAL CORD MONITORING FORAMINOTOMY CERVICAL - POSTERIOR; C6-T2 posterior spinal fusion with a C7-T1 decompression and bilateral foraminotomies Referral ID Status Reason Start Date Expiration Date Visits Re quested Visits Authorized [id number] 1 1 Encounter Details Date Type Department Care Team (Latest Contact Info) Description 11/24/2023 11:16 AM CDT - 12/04/2023 5:27 PM CDT Hospital Encounter [facility] [address] [place] [address] Brennan Castillo MD [address] [place] [address] Discharge Disposition: Discharge to an IP Rehab facility Social History Tobacco Use Types Packs/Day Years [...] a senior living (including now)? No 07/16/2022 Personal Safety Answer Date Recorded Have you ever been in or are you currently in a harmful physical or emotional relationship or is someone making you feel afraid or unsafe? 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 Gender Identity Not on file Sexual Orientation Not on file documented as of this encounter Last Filed Vital Signs Vital Sign Reading Time Taken Comments Blood Pressure 115/68 12/04/2023 11:51 AM CDT Pulse 60 12/04/2023 11:51 AM CDT Temperature 36.2 ??C (97.2 ??F) 12/04/2023 8:11 AM CD T Respiratory Rate 17 12/04/2023 11:51 AM CDT Oxygen Saturation 100% 12/04/2023 11:51 AM CDT Inhaled Oxygen Concentration - - Weight 104.3 kg (229 lb 15 oz) 11/26/2023 4:25 A M CDT Height 167.6 cm (5' 5.98 ) 11/26/2023 4:25 AM CD T Body Mass Index 37.13 11/26/2023 4:25 AM CDT documented in this encounter Discharge Summaries * Jef Rock, VIOLENT CRIMES DETECTIVE - 12/04/2023 2:19 PM CDT Images from the original note were not included. Spine Inpatient Discharge Summary Admitting Provider: Brennan Castillo MD Discharge Provider: Brennan Castillo MD Primary Care Physician at Discharge: Lalito England MD [phone] Admission Date: 11/24/2023 Discharge Date: 12/04/2023 Primary Discharge Diagnosis: Cervicalgia Secondary Discharge Diagnosis: Principal Problem: Cervicalgia Active Problems: Cervical stenosis of spine Resolved Problems: No resolved hospital problems. DETAILS OF HOSPITAL STAY Chief Complaint: Myelopathy History of Present Illness: The patient is a 73 y.o. year old female cared for by Dr. 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 Per the clinic note, patient reported worsening numbness and tingling in hands, particularly in the fingertips of the right hand, which is used more frequently. Patient described worsening dexterity and fine motor skills, especially difficulty with tasks such as buttoning shirts, tying shoes, and opening jars. Patient endorsed bad neck pain without shooting electrical arm pain but mentions a burning sensation from shoulder to shoulder. Patient endorsed balanceworsened, endorsed walker-dependency. The risks, benefits, alternatives and complications of an Posterior Cervical/Thoracic Decompressionand Fusion were discussed with the patient at length prior to surgery. The patient elected to proceed with a surgical intervention given the significant influence on their quality of life. Informed consent was obtained prior to surgery. Operative Procedures Performed: Procedure(s): FUSION CERVICAL/THORACIC - POSTERIOR WITH INSTRUMENTATION C5-T2 posterior spinal fusion with a C5-T2 decompression and bilateral foraminotomies SPINAL CORD MONITORING FORAMINOTOMY CERVICAL - POSTERIOR C5-T2 posterior spinal fusion with a C5-T2 decompression and bilateral foraminotomies Hospital Course Criss Ly was admitted to [facility] on 11/24/23. 11/23 OR for C5-T2 PCDF. POC ok. 11/24 MAP goal liberalized, TTF. Garcia replaced due to urinary retention. 11/25 muscle relaxers added. OT rec SNF. XR done. 11/26 BLE edema--home lasix restarted, maintenance fluids dc'd, chest XR pending, wound consult for skin integrity BLE, garcia dc'd voiding. 11/27 Hoopa J adjusted. Enema ordered 11/28 Worked with PT/OT. 11/29 Fluid bolus for DORINA. 11/30 Dressing changed. 12/01 Endocrine signed off with no new recs. Lidoderm patch added. Ambulated x3 with RN. 12/02 Held Lasix for elevated creat. Encouraged PO intake. 12/03 CR stable, drain dc'd. DC today to rehab The patient was able to wean away from intravenous narcotics , the patient was able to mobilize with physical and occupational therapy, the patient had post operative images and those images were reviewed by the surgeon, and the patient was felt to be stable for discharge to rehab on 12/04/2023 Problems addressed during this hospitalization: Cervical Myelopathy -- S/p surgical intervention on 11/23, closed with Prineo, drains x 1 while inpatient -- Post-operative imaging obtained 11/25 -- Therapy recommends dispo to rehab -- Patient to follow-up with Dr. Castillo outpatient Acute on Chronic Pain -- home regimen of hydrocodone-acetaminophen, gabapentin -- transitioned off of IV pain medications -- well controlled on multimodal oral regimen of scheduled acetaminophen, gabapentin, methocarbamol; PRN cyclobenzaprine, oxycodone Acute Blood Loss Anemia -- received 1U PRBC on 11/23 -- daily monitored CBCs -- EBL 500mL -- no active s/s bleeding post-operatively Diabetes Mellitus --A1c and reliability: 7.6, unreliable iso blood transfusion --HbA1c goal based on comorbidities: <7 --Diabetes Provider: PCP, Endocrinology consulted while inpatient --Home regimen: lantus 20 units qhs + lispro 15 units with meals + Ozempic 2mg weekly (takes it on Mondays, last dose was 2 weeks ago) --Managed with Basal/Bolus + SSI while inpatient . Chronic Kidney Disease Cr stable 1.83 (1.87). Lasix held. Encouraged fluids. -Serial BMP stable. Consults: Endocrinology Other Procedures: N/A GI/ Concerns: Tolerating regular diet. Last bowel movement was 12/02 Garcia replaced on 11/24 d/t urinary retention, removed 11/26 Therapy recommendations: Inpatient rehabilitation Incision: Prineo Brace: Hoopa J collar at all times Surgical drains: SHARRI x1, removed on 12/03 Central Line Removed: N/A Blood Transfusions: 1U PRBC on 11/23 Notable medications: Pain medications: acetaminophen, gabapentin, methocarbamol; PRN cyclobenzaprine, oxycodone 2. Steroids: none 3. Antibiotics: ancef and vancomycin x 24 hours 4. Anticoagulation/antiplatelet agents: Lovenox until 12/07 then resume Apixaban Test Results Pending at Discharge: N/A Pertinent Diagnostic Results: XR Spine Cervical on 11/26/23: Interval posterior instrumented fusion from C5 to T2. Physical Exam at Discharge: Awake, alert, regards, follows commands Oriented x3 PERRL, gaze conjugate, face symmetric BUE 4+ D 11/15 B/T 4- HG/IH BLE 4- HF 4+ KE/KF 4 DF/PF/EHL Incision c/d/I with aquacel Drain x1 holding suction Hoopa J collar in place Discharge Condition: Good Vital Signs Pulse: 60 Resp: 17 BP: 115/68 Temp: 36.2 ??C (97.2 ??F) Weight: 104.3 kg (229 lb 15 oz) SpO2: 100 % Follow-up: Spine: Scheduled for 01/07/24 @12:30PM with Dr. Castillo . Primary Care Physician 02/08 Lab tests/imaging necessary on follow-up: upright AP and lateral xrays of the cervical spine Future Appointments Date Time Provider Department Center 01/07/2024 12:30 PM Brennan Castillo MD [id number] 02/09/2024 9:15 AM Lalito England MD [facility] 02/24/2024 11:30 AM Irma Mittal, [facility] 03/24/2024 12:45 PM Mark Pickett MD [facility] 05/19/2024 12:15 PM Mark Pickett MD [facility] 05/26/2024 1:30 PM Sarah Carter, VIOLENT CRIMES DETECTIVE [facility] Chem/LFT Lab History Latest Ref Rng & Units 11/29/2023 22:32 11/30/2023 20:40 12/02/2023 12/03/2023 23:04 Labs-Chem/LFT Sodium 135 - 145 mmol/L 137 140 138 138 Creatinine 0.60 - 1.10 mg/dL 1.50 1.60 1.87 1.83 CrCl- Actual Body Weight (Cockcroft-Gault) 54.2 50.8 43.5 44.4 Details More abnormal values are hidden. Newest values shown. Go to activity for more data. More values are hidden. Newest values shown. Go to activity for more data. Hematology Lab History Latest Ref Rng & Units 11/29/2023 22:32 11/30/2023 20:40 12/02/2023 12/03/2023 23:04 Labs - Hematology WBC 3.8 - 9.9 K/cumm 8.9 7.8 6.4 6.3 Total Hb, POC 11.9 - 15.5 g/dL 10.7 11.0 9.8 9.9 Hct 35.6 - 45.5 % 33.0 34.6 30.8 31.3 Plt 150 - 400 K/cumm 180 205 191 184 Details More abnormal values are hidden. Newest values shown. Go to activity for more data. More values are hidden. Newest values shown. Go to activity for more data. Discharge Medication List: Current Medications TAKE these medications acetaminophen 500 mg capsule Take 2 capsules (1,000 mg total) by mouth every 6 (six) hours albuterol HFA 90 mcg/actuation inhaler Inhale 2 puffs every 6 (six) hours as needed for wheezing Commonly known as: PROVENTIL HFA,VENTOLIN HFA,PROAIR HFA alendronate 70 mg tablet TAKE 1 TABLET BY MOUTH EVERY FRIDAY FOR OSTEOPOROSIS Commonly known as: FOSAMAX amoxicillin 500 mg tablet/capsule Take 4 tablet/capsule (2,000 mg total) by mouth Before dentist Commonly known as: AMOXIL apixaban 5 mg tablet Take 1 tablet (5 mg total) by mouth 2 (two) times a day Do not restart eliquis until two weeks after surgery (12/07) Commonly known as: ELIQUIS Start taking on: December 08, 2023 aspirin 81 mg enteric coated tablet Take 1 tablet (81 mg total) by mouth early breastfeeding care specialist before breakfast Do not restart until 2 weeks after surgery (12/07) For: prevention of thrombosis Start taking on: December 08, 2023 biotin 10,000 mcg capsule Take 1 capsule (10,000 mcg total) by mouth daily calcium carbonate-vitamin D3 1,250 mg (500 mg elemental)-400 unit tablet Take one by mouth two times per day cloNIDine 0.1 mg tablet TAKE 1/2 TABLET BY MOUTH TWICE DAILY FOR HYPERTENSION Commonly known as: CATAPRES Contour Next Test Strips strip TEST BLOOD SUGAR 3 TIMES A DAY AND WILL MONTIOR RESPONSE. DX: E11.22. Generic drug: blood glucose diagnostic Contour Next USB Meter misc test as directed Generic drug: blood-glucose meter cyclobenzaprine 5 mg tablet Take 1 tablet (5 mg total) by mouth 3 (three) times a day as needed for muscle spasms Commonly known as: FLEXERIL docusate sodium 100 mg capsule Take 1 capsule (100 mg total) by mouth 3 (three) times a day as needed for constipation Commonly known as: COLACE enoxaparin 30 mg/0.3 mL syringe Inject 0.3 mL (30 mg total) under the skin daily for 4 days Stop Lovenox prior to resuming Apixaban For: deep vein thrombosis prevention Commonly known as: LOVENOX finasteride 5 mg tablet Take 1 tablet (5 mg total) by mouth daily Has not started Commonly known as: PROSCAR * Flovent Diskus 100 mcg/actuation diskus inhaler Inhale 1 puff 2 (two) times a day Rinse mouth with water after use. Do not swallow. Generic drug: fluticasone propionate * fluticasone propionate 50 mcg/actuation nasal spray SPRAY 2 SPRAYS INTO EACH NOSTRIL EVERY DAY Commonly known as: FLONASE furosemide 20 mg tablet Take 2 tablets (40 mg total) by mouth daily Commonly known as: LASIX gabapentin 100 mg capsule TAKE 1 CAPSULE BY MOUTH 3 TIMES DAILY FOR NEUROPATHY Commonly known as: NEURONTIN insulin aspart 100 unit/mL (3 mL) pen for injection Inject 15 Units under the skin 3 (three) times a day before meals Commonly known as: NovoLOG methocarbamoL 500 mg tablet Take 1 tablet (500 mg total) by mouth 3 (three) times a day Commonly known as: ROBAXIN Microlet Lancet misc test by fingerstick route 3 times daily Generic drug: lancets montelukast 10 mg tablet TAKE 1 TABLET BY MOUTH AT BEDTIME FOR ALLERGIES Commonly known as: SINGULAIR naloxone 4 mg/actuation spray,non-aerosol Administer 1 spray into affected nostril(s) as needed for opioid reversal Commonly known as: NARCAN Nyamyc powder Apply topically early breastfeeding care specialist before breakfast Generic drug: nystatin omeprazole 20 mg capsule TAKE 1 CAPSUEL BY MOUTH TWICE DAILY FOR GERD Commonly known as: PriLOSEC oxyCODONE 5 mg immediate release tablet Take 1 tablet (5 mg total) by mouth every 4 (four) hours as needed for pain For: pain Commonly known as: ROXICODONE Ozempic 2 mg/dose (8 mg/3 mL) pen injector injection INJECT 2 MG SUBCUTANEOUSLY ONE TIME PER WEEK Generic drug: semaglutide pen needle, diabetic 31 gauge x 3/16 needle 1 needle as directed Commonly known as: BD Ultra-Fine Mini Pen Needle polyethylene glycol 17 gram/dose bulk powder Take 17 g by mouth daily Commonly known as: MIRALAX SEMGLEE-yfgn 100 unit/mL (3 mL) pen for injection Inject 20 Units under the skin nightly Generic drug: insulin glargine senna-docusate 8.6-50 mg Take 2 tablets by mouth 2 (two) times a day For: constipation Commonly known as: PERICOLACE simvastatin 40 mg tablet TAKE 1 TABLET BY MOUTH AT BEDTIME Commonly known as: ZOCOR triamcinolone 0.1 % cream Apply topically legs Commonly known as: KENALOG * This list has 2 medication(s) that are the same as other medications prescribed for you. Read the directions carefully, and ask your doctor or other care provider to review them with you. ASK your doctor about these medications melatonin 3 mg tablet,disintegrating Take 1 tablet by mouth nightly as needed Discharge Instructions: Activity Instructions Discharge Activity: Driving restrictions -Do not drive for 4 weeks or while taking pain medications. Discharge Activity: Driving restrictions -Do not drive for 2 weeks or while taking pain medications. Discharge Activity: Lifting restrictions -Do NOT lift greater than 10 pounds for 6 weeks. -Do NOT lift anything above your head. Discharge Activity: Lifting restrictions -Do NOT lift greater than 10 pounds for 6 weeks. -Do NOT lift anything above your head. Discharge Activity: Out of bed walking -Out of bed walking at least 6-8 times every day -Ask your surgeon before doing any other kind of exercise Discharge Activity: Out of bed walking -Out of bed walking at least 6-8 times every day -Ask your surgeon before doing any other kind of exercise Discharge activity: Activity restrictions -Do not go back to work until your surgeon says it's OK. -Do not jog, run or bike until your surgeon says it's OK. -Do not do any retail leasing agent that cause you to twist, push or pull; such as laundry, vacuuming grocery shopping and childcare. -Do not flex (bring your head to your chest) or extend (lift your chin up high and away from your chest) unless your surgeon says it's OK. -Slowly work up to your normal activities at home with the exceptions as already noted. Discharge activity: Activity restrictions -Do not go back to work until your surgeon says it's OK. -Do not jog, run or bike until your surgeon says it's OK. -Do not do any retail leasing agent that cause you to twist, push or pull; such as laundry, vacuuming grocery shopping and childcare. -Do not flex (bring your head to your chest) or extend (lift your chin up high and away from your chest) unless your surgeon says it's OK. -Slowly work up to your normal activities at home with the exceptions as already noted. Discharge activity: Out of bed to chair -Out of bed to chair at least 3 times every day Discharge activity: Out of bed to chair -Out of bed to chair at least 3 times every day Hard neck brace (cervical collar) -Your surgeon has given you a hard neck brace (cervical collar) to wear. This keeps your spine frommoving and allows it to heal. You should wear this collar at all times until follow-up with Dr. Castillo in clinic. This brace may be removed for bathing, dressing and eating. Hard neck brace (cervical collar) -Your surgeon has given you a hard neck brace (cervical collar) to wear. This keeps your spine frommoving and allows it to heal. You should wear this collar at all times until your follow up appointment unless bathing or dressing. Diet Instructions Adult Discharge Diet Diet Type: Return to previous diet Adult Discharge Diet Diet Type: Return to previous diet Other Instructions Call 911 if you have chest pain or shortness of breath Call 911 if you have chest pain or shortness of breath Call provider for any of the following: -Temperature greater than 101 degrees F or 38.5 C -You have any drainage from your incision -The skin around your incision is swollen and/or red -The incision starts to separate and open up -Pain medicine, rest or warm packs are not helping your pain -You are having new numbness or weakness -You begin feeling very weak -You are having numbness in your pelvic area -You are not able to control your bladder -You lose control of your bowels -You have constipation for longer than 5 days -You are having a hard time swallowing liquids -You have nausea or vomiting that will not go away -You have any swelling, warm to touch or painful areas in your legs. This needs IMMEDIATE attention. Call provider for any of the following: -Temperature greater than 101 degrees F or 38.5 C -You have any drainage from your incision -The skin around your incision is swollen and/or red -The incision starts to separate and open up -Pain medicine, rest or warm packs are not helping your pain -You are having new numbness or weakness -You begin feeling very weak -You are having numbness in your pelvic area -You are not able to control your bladder -You lose control of your bowels -You have constipation for longer than 5 days -You are having a hard time swallowing liquids -You have nausea or vomiting that will not go away -You have any swelling, warm to touch or painful areas in your legs. This needs IMMEDIATE attention. Care Instructions: Incisions -Do not use lotions or creams on your incision -Do not place ice or heat directly on your incision Care Instructions: Shower -You may shower Discharge Wound Type: Open to air -You may leave your incision open to air Discharge Wound Type: Skin Glue Special glue has been placed on your incision. It will flake off over 1-2 weeks. Do not pick, scratch or rub. This may cause it to come off before your incision has healed. Discharge exercises -Continue the exercises your therapist gave you in the hospital Discharge exercises -Continue the exercises your therapist gave you in the hospital Incentive Spirometry Use your incentive spirometer 10 times every hour while awake for one week. Incentive Spirometry Use your incentive spirometer 10 times every hour while awake for one week. Medication instructions You are being discharged with oxycodone for pain. This medicine needs to last you until your followup appointment. Your surgeon expects you to be off pain medicine by about 4 weeks after surgery, sooner if possible. Narcotic pain medication can be very addictive; please use it with caution. Remove brace daily to check skin to prevent skin breakdown Special Instructions It is important that you maintain normal bowel patterns, especially when taking opiate pain medications. Continue taking stool softeners and laxatives, if needed, while taking opiate pain medications. Special Instructions It is important that you maintain normal bowel patterns, especially when taking opiate pain medications. Continue taking stool softeners and laxatives, if needed, while taking opiate pain medications. SEE AVS Cosigned by Brennan Castillo MD at 12/05/2023 1:01 PM CDT documented in this encounter Discharge Instructions * Discharge Instructions* Arik Chase NP - 11/28/2023 11:47 AM CDT Discharge Instructions Posterior Cervical Decompression and Fusion Your doctor has performed an operation to reduce narrowing of the bones in your neck (cervical spine) to relieve pressure on your spinal cord and nerves. Your spine was then fused using small titanium screws and rods. Surgery was performed through an incision in the back of your neck. The following are instructions and guidelines meant to help in your recovery once you have been discharged from the hospital. When to call our office Although your recovery will likely be uneventful, you may have some residual aches and pains in your neck and/or arms. Specifically, some patients complain of a tightness or deep ache in the back of the neck or between the shoulder blades. This is usually due to sore and tight muscles. This is besttreated with muscle relaxants and pain medication. Resting or applying a warm compress may help. This is normal and should improve in the next few weeks. You may notice some pain with swallowing in the first month after surgery - this is normal. During the operation, a breathing tube is placed down your throat by the anesthesiologist. In addition, your throat is gently pulled to one side to perform the surgery. For both of these reasons, your throatwill be sore. Some patients also notice the sensation of having a ???lump?? in their throat. You may have difficulty swallowing certain foods like rice or corn - this can be normal. However, if you are having difficulty swallowing liquids, call your doctor immediately. Call our office immediately (phone numbers listed at the end of these instructions) if you experience the following symptoms: Fevers greater than 101??F Drainage from your incision, or surrounding redness or swelling Pain that is progressively getting worse, and is not relieved by your pain medications, rest, or applying warms packs New numbness or weakness Difficulty controlling your bladder Loss of control of your bowels Call 911 immediately if you experience the following symptoms: Sudden weakness or difficulty speaking and/or swallowing Sudden onset persistent headache, with nausea and/or vomiting Sudden change or loss of vision New difficulty with breathing Chest pain Wound care Your wound has been closed with topical skin glue. The glue will fall off over time.. Keep your incision clean. Do NOT use lotions, ointments, or creams on the incision. Do not scrub, rub, or pick at the incision. If you have a gauze dressing covering your wound, remove it within 1-2 days and leave the wound open to air. You may get your incision wet now. If your wound gets wet, lightly dab it dry. Do NOT submerge yourself in any water that will cover the incision (bathtub, hot tub, swimming pool), unless specifically cleared by your doctor. Activity Until released by your doctor, you should not return to work. You should rest at home and let your body heal. Taking short walks is encouraged, but avoid strenuous exercise. Do not jog, run, lift weights, bicycle, or participate in any other exercises unless specifically allowed by your doctor. Most importantly, avoid lifting objects heavier than a telephone book or a carton of milk as this places strain on your neck. Avoid household activities that involve lifting, twisting, pushing, and pulling such as laundry, vacuuming, grocery shopping, and childcare. Try to arrange for help from friendsand family for these activities while your neck heals. Some patients are given a hard neck brace (cervical collar) to wear. This keeps your spine still, and allows it to heal properly. You can remove the collar when lying down, but you should wear it at all other times. You do not need to wear the collar while sleeping. Some operations do not require the use of a hard collar - your doctor will prescribe one if you need it. You should not drive until cleared by your doctor. This time can vary but is typically around 3 weeks. Do not smoke tobacco Smoking has been proven to interfere with the normal healing of the bones in your neck. Smoking will dramatically reduce the success rate of your surgery. Your primary care doctor can prescribe a patch to help you stop smoking if you would like. Diet You can return to your usual diet, unless instructed otherwise by your doctor. Medications You should resume taking all of your normal medications, unless instructed otherwise by your doctor. However, you should not take anti-inflammatory medications (such as: Motrin, Advil, Ibuprofen, Celebrex, Vioxx, Naprosyn) for three months after surgery, unless specifically approved by your doctor.These medications can prevent your bones from healing properly after surgery. You should also not take any blood thinners or antiplatelet agents (such as Aspirin, Plavix, or Coumadin), unless specifically approved by your doctor. If you have questions about your normal medications (such as those prescribed for high blood pressure), call your family doctor or fitness coordinator. You will be given a prescription for pain medications, a muscle relaxer and possibly a laxative, aspain medications can cause constipation. Take the pain medicines as instructed. If your pain is notreasonably controlled by the medications, contact your doctor???s office. Follow up - Neurosurgery: You should follow up in Dr. Castillo's clinic in 4-6 weeks with xrays of your neck. If you do not have a follow-up appointment, call to schedule one. Please arrive 30 minutes prior to your scheduled appointment. Phone numbers Appointment Scheduling: Doctor???s Office: Dr. Brennan Castillo, After hours emergency: or documented in this encounter Medications at Time [...] (12/07) 4 aspirin 81 mg enteric coated tabletIndications :prevention of thrombosis Take 1 tablet (81 mg total) by mouth early breastfeeding care specialist before breakfast Do not restart until 2 weeks after surgery (12/07) 4 blood glucose diagnostic (Contour Next Test Strips) strip TEST BLOOD SUGAR 3 TIMES A DAY AND WILL MONTIOR RESPONSE. DX: E11.22. 200 strip 1 4 blood-glucose meter (CONTOUR NEXT USB METER) misc test as directed 1 each 0 4 cloNIDine (CATAPRES) 0.1 mg tabletIndications :Hypertension associated with type 2 diabetes mellitus (HCC) [...] inhaler INHALE 2 PUFFS EVERY MORNING 4 insulin aspart (NovoLOG) 100 unit/mL (3 mL) pen for injectionIndicati ons:Controlled type 2 diabetes mellitus with diabetic polyneuropathy, without long-term current use of insulin (HCC) Inject 15 Units under the skin 3 (three) times a day before meals 84 mL 2 3 lancets (MICROLET LANCET) misc test by fingerstick route 3 times daily 300 each 3 6 montelukast (SINGULAIR) 10 mg tablet TAKE 1 TABLET BY MOUTH AT BEDTIME FOR ALLERGIES 90 tablet 5 3 naloxone (NARCAN) 4 mg/actuation spray,non-aerosol Administer 1 spray into affected nostril(s) as needed for opioid reversal 1 each 2 SEMGLEE-yfgn 100 unit/mL (3 mL) pen for injection Inject 20 Units under the skin nightly 4 senna-docusate (PERICOLACE) 8.6-50 mgIndications:con stipation Take 2 tablets by mouth 2 (two) times a day 4 simvastatin (ZOCOR) 40 mg tabletIndications :Controlled type 2 diabetes mellitus with diabetic polyneuropathy, without long-term current use of insulin (HCC) TAKE 1 TABLET BY MOUTH AT BEDTIME 90 tablet 5 3 triamcinolone (KENALOG) 0.1 % cream Apply topically legs 4 cephalexin (KEFLEX) 500 mg capsule Take 1 capsule (500 mg total) by mouth 2 (two) times a day for 10 days 20 capsule 4 02/20/20 24 enoxaparin (LOVENOX) 30 mg/0.3 mL syringeIndication s:Deep Vein Thrombosis Prevention Inject 0.3 mL (30 mg total) under the skin daily for 4 days Stop Lovenox prior to resuming Apixaban 0 4 12/08/19 24 albuterol HFA (PROVENTIL HFA,VENTOLIN HFA,PROAIR HFA) 90 mcg/actuation inhaler Inhale 2 puffs every 6 (six) hours as needed for wheezing 1 each 2 3 01/07/20 24 alendronate (FOSAMAX) 70 mg tabletIndications :Age-related osteoporosis without current pathological fracture TAKE 1 TABLET BY MOUTH EVERY FRIDAY FOR OSTEOPOROSIS 12 tablet 11 3 01/07/20 24 amoxicillin 500 mg capsule Take 4 tablet/capsule (2,000 mg total) by mouth Before dentist 4 12/29/19 24 biotin 10,000 mcg capsule Take 1 capsule (10,000 mcg total) by mouth daily 12/29/19 24 calcium carbonate-vitamin D3 500 mg(1,250mg) -400 unit tablet Take one by mouth two times per day 0 0 8 04/14/20 24 cyclobenzaprine (FLEXERIL) 5 mg tablet Take 1 tablet (5 mg total) by mouth 3 (three) times a day as needed for muscle spasms 4 01/07/20 24 fluticasone propionate (FLONASE) 50 mcg/actuation nasal sprayIndications: Seasonal allergic rhinitis due to pollen SPRAY 2 SPRAYS INTO EACH NOSTRIL EVERY DAY 48 mL 1 4 02/03/20 24 fluticasone propionate (Flovent Diskus) 100 mcg/actuation diskus inhaler Inhale 1 puff 2 (two) times a day Rinse mouth with water after use. Do not swallow. 60 each 3 3 12/29/19 24 furosemide (LASIX) 20 mg tablet Take 2 tablets (40 mg total) by mouth daily 180 tablet 4 3 04/01/20 24 gabapentin (NEURONTIN) 100 mg capsule TAKE 1 CAPSULE BY MOUTH 3 TIMES DAILY FOR NEUROPATHY 270 capsule 1 3 12/29/19 24 melatonin 3 mg tablet,disintegra ting Take 1 tablet by mouth nightly as needed 12/29/19 24 methocarbamoL (ROBAXIN) 500 mg tablet Take 1 tablet (500 mg total) by mouth 3 (three) times a day 4 04/14/20 24 Nyamyc powder Apply topically early breastfeeding care specialist before breakfast 4 05/26/20 24 omeprazole (PriLOSEC) 20 mg capsule TAKE 1 CAPSUEL BY MOUTH TWICE DAILY FOR GERD 180 capsule 5 3 06/28/20 24 oxyCODONE (ROXICODONE) 5 mg immediate release tabletIndications :Pain Take 1 tablet (5 mg total) by mouth every 4 (four) hours as needed for pain 42 tablet 4 12/29/19 24 pen needle, diabetic (BD Ultra-Fine Mini Pen Needle) 31 gauge x 09/26 needle 1 needle as directed 300 each 3 3 01/09/20 24 polyethylene glycol (MIRALAX) 17 gram/dose powder Take 17 g by mouth daily 850 g 1 3 04/14/20 24 semaglutide (Ozempic) 2 mg/dose (8 mg/3 mL) pen injector injection INJECT 2 MG SUBCUTANEOUSLY ONE TIME PER WEEK 2 mL 3 4 02/29/20 24 documented as of this encounter Ordered Prescriptions Prescription Sig Dispense Quantity Refills Last Filled Start Date End Date senna-docusate (PERICOLACE) 8.6-50 mgIndications:cons tipation Take 2 tablets by mouth 2 (two) times a day 12/04/2023 acetaminophen 500 mg capsule Take 2 capsules (1,000 mg total) by mouth every 6 (six) hours 12/04/2023 aspirin 81 mg enteric coated tabletIndications: prevention of thrombosis Take 1 tablet (81 mg total) by mouth early breastfeeding care specialist before breakfast Do not restart until 2 weeks after surgery (12/07) 12/08/2023 apixaban (ELIQUIS) 5 mg tablet Take 1 tablet (5 mg total) by mouth 2 (two) times a day Do not restart eliquis until two weeks after surgery (12/07) 12/08/2023 oxyCODONE (ROXICODONE) 5 mg immediate release tabletIndications: Pain Take 1 tablet (5 mg total) by mouth every 4 (four) hours as needed for pain 42 tablet 12/04/2023 4 enoxaparin (LOVENOX) 30 mg/0.3 mL syringeIndications :Deep Vein Thrombosis Prevention Inject 0.3 mL (30 mg total) under the skin daily for 4 days Stop Lovenox prior to resuming Apixaban 0 12/04/2023 4 methocarbamoL (ROBAXIN) 500 mg tablet Take 1 tablet (500 mg total) by mouth 3 (three) times a day 12/04/2023 4 cyclobenzaprine (FLEXERIL) 5 mg tablet Take 1 tablet (5 mg total) by mouth 3 (three) times a day as needed for muscle spasms 12/04/2023 4 documented in this encounter Discharge Disposition Disposition Code Departure Means Destination Comment s Discharge to an Rehab facility [facility] documented in this encounter Progress Notes * Madelaine Scott RN - 12/04/2023 12:43 PM CDT 12/04/23 1211 Discharge Summary Discharge Disposition Acute Rehab [facility] Facility Contact Number [phone] Albert Lewis Discharge Records Transfer Form Completed;Chart Copied Discharge Additional Assistance Does the patient need discharge transport arranged? Yes Type of Transportation Ambulance Has discharge transport been arranged? Yes Details of Transportation [facility] [phone], trip # [id number] D/C Transport Anticipated Date 12/04/23 D/C Transport Anticipated Time 1700 Per medical team, patient is medically stable for discharge at this time. [facility] been [facility]. Insurance authorization has been obtained. CM spoke with the patient/family (patient updated sister Italia), admissions, medical team, and RN regarding discharge planning, and allare agreeable to discharge. Post-acute care transfer packet completed and will be sent with the patient. RN provided with report number to nurses station. Mode of transport has been discussed with the patient/family, MD, nursing staff. All are agreeable to plan and understand their responsibilities to ensure the safe transfer. Patient/family informed patient may require ambulance transport. geothermal production manager informed patient/family that even if the patient's insurance benefit includes ambulance transport, it may not cover the full cost of the transportation. The patient may be responsible for any [id number] cost, includingmileage beyond the nearest appropriate facility. Patient/family voiced understanding. No further case management needs identified at this time * AzarErick gonzalez, FIREWALL SECURITY ENGINEER - 12/04/2023 9:46 AM CDT Physical Therapy Patient Name: Criss Ly Date of : 1950 Date of Service: 12/04/2023 Physical Therapy Progress Note NOTE: This is a summary note of the winter components of the treatment session. For full details, review chart for all flowsheets documented on by this physical therapy clinician on this date. Vital signs documented in vital signs flowsheet. Care plan progress documented in Care Plan Activity. For questions, please review the treatment team and contact the PT or FIREWALL SECURITY ENGINEER currently assigned to this patient. If a physical therapy clinician is not assigned to this patient, please call [phone]. 12/04/23 0946 PT Last Visit Session Type Treatment PT Received On 12/04/23 Safe Environment Arm band checked;Patient found sitting in chair Subjective Agreeable to Therapy Family/Caregiver Present No Precautions Precautions Cervical spine Braces/Orthoses Cervical collar (Hoopa J) Precaution Comments Verbally reviewed precautions prior to all mobility Activity Tolerance Activity Tolerance Comments Jhonathan: Somewhat Hard Pain Assessment Pain Assessment 0-10 Pain Score 6 Pain Location Back (Cervical) Pain Interventions Physical Therapy;Repositioned;Exercise Cognition Arousal/Alertness Alert;Appropriate responses to stimuli Orientation Oriented X4 (person, place, time, situation) Following Commands Follows all commands and directions without difficulty Static Sitting Balance Static Sitting-Balance Support Bilateral upper extremity supported;Feet supported Static Sitting-Sitting Surface Chair Static Sitting-Level of Assistance Distant supervision Dynamic Sitting Balance Dynamic Sitting-Balance Support No upper extremity supported;Feet supported Dynamic Sitting-Balance Forward lean;Lateral lean Dynamic Sitting-Sitting Surface Chair Dynamic Sitting-Level of Assistance Close supervision Static Standing Balance Static Standing-Balance Support Bilateral upper extremity supported Static Standing-Standing Surface Floor Static Standing-Level of Assistance Minimum assistance Static Standing-Comment/# of Minutes Emily for maintaining balance Seated Seated-Exercises Lower extremity;Specific exercises Seated-Exercise Type Ankle pumps;Hip flexion;Long arc quads;ABduction;ADduction Reps/Sets 04/13 Seated-Motion AROM Seated-Exercise Comments Pt. completed seated therapeutic exercises for increased strength, balance, and tolerance of functional activitiy. By completing these pre-gait activities, the patient is providing a cardiovascular warm up and assisting in maintaining joint integrity. Standing Standing-Exercises Lower extremity;Specific exercises Standing-Exercise Type Squats;Tap ups Reps/Sets 04/13 Standing-Motion AROM Standing-Exercise Comments Pt. completed standing therapeutic exercises for increased strength, balance, and tolerance of functional activitiy. By completing these pre-gait activities, the patient isproviding a cardiovascular warm up and assisting in maintaining joint integrity. Transfer 1 Transfer From 1 Sit Transfer Type 1 To and from Transfer to 1 Stand Technique 1 Sit to stand;Stand to sit Transfer Device 1 Wheeled walker Transfer Level of Assistance 1 Minimum Assist Trials/Comments 1 Pt. required physical assistance for increased force production, anterior momentum, increasing hip and knee extension, controlling descent, improving upright posture. As well as, verbal and tactile cueing for UE hand placement, walker proximity, increasing base of support, and forward gaze. Ambulation 1 Distance (ft) 1 70ft (+ 70ft + 24ft) Surface 1 Level tile Device 1 Wheeled walker Assistance 1 Minimum Assist Gait: Requires assist with 1 Maintaining balance Gait: Requires verbal cues to 1 Use assistive device safely;Improve upright posture;Increase step length;Prevent bumping into environmental barriers (dean/furniture);Increase base of support Gait Deviations 1 Antalgic;Base of support - decreased;Loreta - decreased;Posture - flexed;Step length - decreased;Heel strike - decreased;Path deviation;Weight bearing through UE???s - increased;Turns - difficulty Quality of Gait 1 Noted Trapezius Muscle Guarding, Significantly decreased loreta, downward gaze Ambulation Comments 1 2 standing rest breaks Basic Mobility - 6 Click How much difficulty does the patient have: Turning over in bed 3 How much difficulty does the patient currently have: Sitting down and standing up from a chair witharms? 3 How much difficulty does the patient have: Moving from lying on back to sitting on the side of the bed? 3 How much difficulty does the patient have: Moving to and from a bed to a chair including wheelchair? 3 How much help does the patient currently need: Walk in hospital room? 3 How much help from another person does the patient currently need: Climbing 3-5 steps with a railing? 2 Total 6 Click Score (range 6-24) 17 Score Interpretation 39.67 Safe Environment End of Therapy Session Safe Environment End of Therapy Session Patient left in recliner;Chair alarm in place and activated;RN notified;Call light within reach;Overbed table within reach Plan Plan Continue with current plan (Per PT) Recommendation/Plan PT Recommendation/Plan Inpatient Rehab Facility (Per PT) PT Frequency during current admission 5-7x/wk (Per PT) PT - Next Appointment 12/05/23 Multi-Disciplinary Problems (from Physical Therapy) Active Problems Problem: Mobility Start Date: 11/26/23 Goal Start Date Expected End Date End Date LTG - Patient will ambulate household distance 11/26/23 02/11/24 -- Goal Details: 200' with wheeled walker, modified independent Problem: Transfers Start Date: 11/26/23 Goal Start Date Expected End Date End Date STG - Transfer from bed to chair 11/26/23 12/12/23 -- Goal Details: With wheeled walker, modified independent Goal Start Date Expected End Date End Date STG - Patient to transfer to and from sit to supine 11/26/23 12/12/23 -- Goal Details: Modified independent Goal Start Date Expected End Date End Date STG - Patient will transfer sit to and from stand 11/26/23 12/12/23 -- Goal Details: With wheeled walker, modified independent Problem: Mobility Start Date: 12/02/23 Goal Start Date Expected End Date End Date STG - Patient will ambulate 12/02/23 12/12/23 -- Goal Details: 150' with wheeled walker, modified independent * Fredy Portillo MD PhD - 12/04/2023 6:23 AM CDT Neurosurgery Daily Progress Note 12/04/2023 Hospital Course 11/23 OR for C5-T2 PCDF. POC ok. Garcia replaced. 11/24 MAP goal liberalized, TTF. 11/25 muscle relaxers added. PT rec IPR. XR obtained. 11/26 BLE edema--home lasix restarted, maintenance fluids dc'd, chest XR pending, wound consult for skin integrity BLE, garcia dc'd voiding. 11/27 Hoopa J adjusted. Enema ordered 11/28 Worked with PT/OT. 11/29 Fluid bolus for DORINA. 11/30 Dressing changed. 12/01 Endocrine signed off with no new recs. Lidoderm patch added. Ambulated x3 with RN. 12/02 Held Lasix for elevated creat. Encouraged PO intake. Subjective no complaints and pain well controlled Objective Physical Exam Awake, alert, regards, follows commands Oriented x3 PERRL, gaze conjugate, face symmetric BUE 4+ D 5/5 B/T 4- HG/IH BLE 4- HF 4+ KE/KF 4 DF/PF/EHL Incision c/d/I with aquacel Drain x1 holding suction Hoopa J collar in place Vitals 24hr min/max vitals: Temp Min: 36.2 ??C (97.1 ??F) Max: 36.8 ??C (98.2 ??F) Pulse Min: 59 Max: 66 Resp Min: 16 Max: 16 SpO2 Min: 95 % Max: 99 % MAP (mmHg) Min: 60 Max: 73 Intake and Output I/O last 2 completed shifts: In: 200 [P.O.:200] Out: 2325 [Urine:2300; Drains:25] Medications Scheduled Scheduled Medications Medication Dose Route Frequency acetaminophen (TYLENOL) tablet 1,000 mg 1,000 mg oral Q6H GOPAL bisacodyL (DULCOLAX) suppository 10 mg 10 mg rectal Daily cloNIDine (CATAPRES) tablet 0.1 mg 0.1 mg oral BID enoxaparin (LOVENOX) syringe 30 mg 30 mg subcutaneous Daily-2100 famotidine (PEPCID) tablet 10 mg 10 mg oral Daily fluticasone propionate (FLONASE) 50 mcg/actuation nasal spray 2 spray 2 spray each nostril Daily [Held by Provider] furosemide (LASIX) tablet 40 mg 40 mg oral Daily gabapentin (NEURONTIN) capsule 100 mg 100 mg oral TID insulin glargine (LANTUS, SEMGLEE) 100 unit/mL injection 16 Units 16 Units subcutaneous Nightly insulin lispro (HumaLOG, ADMELOG) 100 unit/mL injection 0-4 Units 0-4 Units subcutaneous Nightly insulin lispro (HumaLOG, ADMELOG) 100 unit/mL injection 0-5 Units 0-5 Units subcutaneous TID with meals insulin lispro (HumaLOG, ADMELOG) 100 unit/mL injection 6 Units 6 Units subcutaneous TID with meals lidocaine (ASPERCREME) 4 % patch 2 patch 2 patch transdermal Q24H methocarbamoL (ROBAXIN) tablet 500 mg 500 mg oral TID polyethylene glycol (MIRALAX) packet 17 g 17 g oral Daily senna-docusate (PERICOLACE) 8.6-50 mg per tablet 2 tablet 2 tablet oral BID simvastatin (ZOCOR) tablet 40 mg 40 mg oral Nightly sodium chloride 0.9% flush 0.5-20 mL 0.5-20 mL intra-catheter Q8H GOPAL As needed PRN Medications Medication Dose Route Frequency Last Admin albuterol HFA (PROVENTIL HFA,VENTOLIN HFA,PROAIR HFA) 90 mcg/actuation inhaler 2 puff 2 puff inhalation Q6H PRN (RT) Carrier Fluids for Secondary Infusion - 0.9% Sodium Chloride 30 mL intravenous PRN cyclobenzaprine (FLEXERIL) tablet 5 mg 5 mg oral TID PRN 5 mg at 12/03/23 1439 magnesium hydroxide (MILK OF MAGNESIA) 80 mg/mL (33.3 mg/mL as elemental magnesium) oral bateexovcm50 mL 30 mL oral Daily PRN 30 mL at 11/28/23 1021 ondansetron ODT (ZOFRAN-ODT) disintegrating tablet 4 mg 4 mg oral Q6H PRN Or ondansetron (ZOFRAN) injection 4 mg 4 mg intravenous Q6H PRN oxyCODONE (ROXICODONE) tablet 5 mg 5 mg oral Q4H PRN 5 mg at 12/03/23 1826 sodium chloride 0.9% flush 0.5-20 mL 0.5-20 mL intra-catheter PRN Labs Lab Results Component Value Date SODIUM 138 12/03/2023 SODIUM 138 12/02/2023 SODIUM 139 12/02/2023 Lab Results Component Value Date GLUCOSE 147 12/03/2023 CALCIUM 9.3 12/03/2023 POTASSIUM 4.4 12/03/2023 CO2 26 12/03/2023 CHLORIDE 101 12/03/2023 BUNSER 31 (H) 12/03/2023 CREATININE 1.83 (H) 12/03/2023 Lab Results Component Value Date WBC 6.3 12/03/2023 WBC 6.4 12/02/2023 WBC 6.8 12/02/2023 HGB 9.9 (L) 12/03/2023 HGB 9.8 (L) 12/02/2023 HGB 9.7 (L) 12/02/2023 HCT 31.3 (L) 12/03/2023 HCT 30.8 (L) 12/02/2023 HCT 30.8 (L) 12/02/2023 LABPLAT 184 12/03/2023 LABPLAT 191 12/02/2023 LABPLAT 193 12/02/2023 Lab Results Component Value Date INR 1.07 11/24/2023 INR 1.70 (H) 11/14/2023 INR 1.0 01/17/2022 PT 12.2 11/24/2023 PT 19.4 (H) 11/14/2023 PT 11.3 01/17/2022 APTT 46 (H) 11/24/2023 APTT 78 (H) 11/14/2023 APTT 43 (H) 01/17/2022 No components found for: TROPONIN PT/OT Evaluation PT Recommendation/Plan: Inpatient Rehab Facility (Per PT) OT Recommendation: Inpatient Rehab Facility Assessment/Plan Hospital Day: 11 Criss Ly is a 73 y.o. year old female who presented with cervical myelopathy (especially R hand). 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 If youare unable to reach them, you may contact the residents as listed. If it is after 6pm or you are unable to reach the VIOLENT CRIMES DETECTIVE or resident team, please page the Neurosurgery Call Pager at [phone]. Note created by Fredy Portillo MD PhD on 12/04/2023 at 6:23 AM. Cosigned by Brennan Castillo MD at 12/05/2023 1:02 PM CDT * Stan Johnosn, OT - 12/03/2023 10:52 AM CDT Occupational Therapy Occupational Therapy Progress Note NOTE: This is a summary note of the winter components of the treatment session. For full details, review chart for all flowsheets documented on by this occupational therapy clinician on this date. Vitalsigns documented in vital signs flowsheet. Care plan progress documented in Care Plan Activity. For questions, please review the treatment team and contact the occupational therapist currently assigned to this patient. If an occupational therapist is not assigned to this patient, please call [phone]. 12/03/23 1052 General Session Type Treatment OT Received On 12/03/23 Safe Environment Patient found in supine;Arm band checked;Gait belt utilized for all out of bed mobility Subjective Agreeable to Therapy Family/Caregiver Present No Precautions Precautions Cervical spine Weight Bearing Restrictions No Braces/Orthoses Cervical collar (Marcia Blandon donned for entirity of session) Precaution Handout Issued No Precaution Comments Verbally reviewed precautions prior to mobility Pain Assessment Pain Assessment 0-10 Pain Score 5 - Moderate pain Pain Location Back (Cervical) Pain Orientation Posterior Pain Interventions Repositioned;RN Notified (SEBASTIÁN Cruz) Balance Balance Yes Dynamic Sitting Balance Dynamic Sitting-Balance Support No upper extremity supported Dynamic Sitting-Balance Lateral lean;Forward lean;Reaching for objects;Reaching across midline Dynamic Sitting-Sitting Surface Bed Dynamic Sitting-Level of Assistance Close supervision Dynamic Sitting-Comments Sup for safety Dynamic Standing Balance Dynamic Standing-Balance Support Unilateral upper extremity supported Dynamic Standing-Balance Lateral lean;Forward lean;Reaching for objects;Reaching across midline Dynamic Standing-Standing Surface Floor Dynamic Standing-Level of Assistance Minimum assistance Dynamic Standing-Comments Min A for balance and safety ADL ADLS (WDL) X Grooming Grooming: Where assessed Standing at sink Grooming: Level of assistance Minimum Assist Grooming: Assistance with Balance;Safety (Set up for task, Min A for balance) LE Dressing LE Dressing: Where assessed Chair LE Dressing: Level of assistance Minimum Assist LE Dressing: Assistance with Pull up over hips (Min for task) Toileting Toileting: Where assessed Toilet Toileting: Level of assistance Minimum Assist Toileting: Assistance with Clothing management down;Clothing management up (Min A for task) Room Mobility Room Mobility: Where assessed To/from bathroom in Pt's room Health Management: Equipment Walker Room Mobility: Level of Assistance Minimum Assist Room Mobility comment Min A for balance and safety. Bed Mobility Bed Mobility No (Pt found up in chair) Transfers Transfer Yes Transfer 1 Transfer From 1 Sit Transfer Type 1 To and from Transfer to 1 Stand Technique 1 Sit to stand;Stand to sit Transfer Device 1 Wheeled walker Transfer Level of Assistance 1 Minimum Assist Trials/Comments 1 Min A for balance and safety Toilet Transfers Toilet Transfer From Chair with arms Toilet Transfer Type To and from Toilet Transfer to Raised toilet seat with rails Toilet Transfer Technique Ambulating Toilet Transfer: Equipment Wheeled walker Toilet Transfers Minimal assistance Toilet Transfers Comments Min A for balance and safety Cognition Overall Cognitive Status WFL Arousal/Alertness Alert;Appropriate responses to stimuli Attention Span Appears intact Memory Appears intact Current communication Appears Intact Orientation Oriented X4 (person, place, time, situation) Following Commands Follows all commands and directions without difficulty Safety Judgment Good awareness of safety precautions Awareness of Errors Good awareness of errors made Insight Fully aware of deficits Problem Solving Able to problem solve independently Compliance/Behavior Easy to engage Perseveration Not present Other Comments Comments Treatment session focused on functional transfers and mobility in preparation for self care tasks. Pt would benefit from continued skilled therapy services to improve ADL ind, balance, and safety. Daily Activity - 6 Clicks Putting on and taking off regular lower body clothing 3 Bathing 3 Toileting 3 Putting on and taking off upper body clothing 4 Personal Grooming 3 Eating Meals 4 Total Score (range 6-24) 20 Score Interpretation 42.03 Safe Environment End of Therapy Session Safe Environment End of Therapy Session Patient left in recliner;RN notified;Overbed table within reach;Call light within reach Assessment Problem List Decreased endurance;Decreased balance;Decreased fine motor control;Decreased functional mobility;Decreased gross motor control;Decreased ADL independence;Decreased IADL independence;Decreased upper extremity strength Barriers to Discharge Current Mobility Status;Current ADL Status Barrier Comments Fall risk Plan Plan Continue with current plan;If this is the last note, consider this the discharge summary Recommendation/Plan OT Recommendation Inpatient Rehab Facility Patient at high risk for Falls;Readmission;Injury due to decreased ability to care for self;Injury due to reduced functional status;Injury due to balance deficits Recommend Inpatient Rehab/Acute Rehab due to Ability to actively participate in intensive therapy 3hours/day, 5 days/week or 900 minutes per week;Impaired ability to complete functional mobility;Highly motivated to participate in therapy;Not at baseline due to impaired ability to complete ADLs OT Frequency during current admission 5-7x/wk Treatment/Interventions during current admission ADL/IADL retraining;Balance Training;Bed mobility;Endurance training;Functional activity;Functional mobility training;Functional transfer training OT Equipment Recommended Wheeled walker Progress during current admission Progressing toward goals OT - Next Appointment 12/04/23 OT - OK to Discharge No Multi-Disciplinary Problems (from Occupational Therapy) Active Problems Problem: Dressings Lower Extremities Start Date: 11/26/23 Goal Start Date Expected End Date End Date STG - Patient to complete lower body dressing 11/26/23 12/10/23 -- Goal Details: Sup with AE PRN Problem: Toileting Start Date: 11/26/23 Goal Start Date Expected End Date End Date STG - Patient will complete toileting tasks with 11/26/23 12/10/23 -- Goal Details: Sup Problem: Transfers Start Date: 11/26/23 Goal Start Date Expected End Date End Date STG - Patient will perform toilet transfer 11/26/23 12/10/23 -- Goal Details: Sup to toilet in bathroom Problem: Precautions Start Date: 11/26/23 Goal Start Date Expected End Date End Date STG - Patient will demonstrate precautions consistently during ADL tasks/functional mobility. 11/26/23 12/17/23 -- Goal Details: Sup Problem: OT Misc Start Date: 11/26/23 Goal Start Date Expected End Date End Date OT LTG - Misc 1 11/26/23 12/10/23 -- Goal Details: Pt will be able to complete all ADLs with sup and AE PRN * Fredy Portillo MD PhD - 12/03/2023 9:27 AM CDT Neurosurgery Daily Progress Note 12/03/2023 Hospital Course 11/23 OR for C5-T2 PCDF. POC ok. Garcia replaced. 11/24 MAP goal liberalized, TTF. 11/25 muscle relaxers added. PT rec IPR. XR obtained. 11/26 BLE edema--home lasix restarted, maintenance fluids dc'd, chest XR pending, wound consult for skin integrity BLE, garcia dc'd voiding. 11/27 Hoopa J adjusted. Enema ordered 11/28 Worked with PT/OT. 11/29 Fluid bolus for DORINA. 11/30 Dressing changed. 12/01 Endocrine signed off with no new recs. Lidoderm patch added. Ambulated x3 with RN. Subjective no complaints and pain well controlled Objective Physical Exam Awake, alert, regards, follows commands Oriented x3 PERRL, gaze conjugate, face symmetric BUE 4+ D 11/15 B/T 4- HG/IH BLE 4- HF 4+ KE/KF 4 DF/PF/EHL Incision c/d/I with aquacel Drain x1 holding suction Hoopa J collar in place Vitals 24hr min/max vitals: Temp Min: 36.2 ??C (97.1 ??F) Max: 37 ??C (98.6 ??F) Pulse Min: 62 Max: 66 Resp Min: 16 Max: 18 SpO2 Min: 93 % Max: 98 % MAP (mmHg) Min: 60 Max: 87 Intake and Output I/O last 2 completed shifts: In: 200 [P.O.:200] Out: 1550 [Urine:1500; Drains:50] Medications Scheduled Scheduled Medications Medication Dose Route Frequency acetaminophen (TYLENOL) tablet 1,000 mg 1,000 mg oral Q6H GOPAL bisacodyL (DULCOLAX) suppository 10 mg 10 mg rectal Daily cloNIDine (CATAPRES) tablet 0.1 mg 0.1 mg oral BID enoxaparin (LOVENOX) syringe 30 mg 30 mg subcutaneous Daily-2100 famotidine (PEPCID) tablet 20 mg 20 mg oral BID fluticasone propionate (FLONASE) 50 mcg/actuation nasal spray 2 spray 2 spray each nostril Daily [Held by Provider] furosemide (LASIX) tablet 40 mg 40 mg oral Daily gabapentin (NEURONTIN) capsule 100 mg 100 mg oral TID insulin glargine (LANTUS, SEMGLEE) 100 unit/mL injection 16 Units 16 Units subcutaneous Nightly insulin lispro (HumaLOG, ADMELOG) 100 unit/mL injection 0-4 Units 0-4 Units subcutaneous Nightly insulin lispro (HumaLOG, ADMELOG) 100 unit/mL injection 0-5 Units 0-5 Units subcutaneous TID with meals insulin lispro (HumaLOG, ADMELOG) 100 unit/mL injection 6 Units 6 Units subcutaneous TID with meals lidocaine (ASPERCREME) 4 % patch 2 patch 2 patch transdermal Q24H methocarbamoL (ROBAXIN) tablet 500 mg 500 mg oral TID polyethylene glycol (MIRALAX) packet 17 g 17 g oral Daily senna-docusate (PERICOLACE) 8.6-50 mg per tablet 2 tablet 2 tablet oral BID simvastatin (ZOCOR) tablet 40 mg 40 mg oral Nightly sodium chloride 0.9% flush 0.5-20 mL 0.5-20 mL intra-catheter Q8H GOPAL As needed PRN Medications Medication Dose Route Frequency Last Admin albuterol HFA (PROVENTIL HFA,VENTOLIN HFA,PROAIR HFA) 90 mcg/actuation inhaler 2 puff 2 puff inhalation Q6H PRN (RT) Carrier Fluids for Secondary Infusion - 0.9% Sodium Chloride 30 mL intravenous PRN cyclobenzaprine (FLEXERIL) tablet 5 mg 5 mg oral TID PRN 5 mg at 12/03/23 0846 magnesium hydroxide (MILK OF MAGNESIA) 80 mg/mL (33.3 mg/mL as elemental magnesium) oral [id number] mL 30 mL oral Daily PRN 30 mL at 11/28/23 1021 ondansetron ODT (ZOFRAN-ODT) disintegrating tablet 4 mg 4 mg oral Q6H PRN Or ondansetron (ZOFRAN) injection 4 mg 4 mg intravenous Q6H PRN oxyCODONE (ROXICODONE) tablet 5 mg 5 mg oral Q4H PRN 5 mg at 12/03/23 0548 sodium chloride 0.9% flush 0.5-20 mL 0.5-20 mL intra-catheter PRN Labs Lab Results Component Value Date SODIUM 138 12/02/2023 SODIUM 139 12/02/2023 SODIUM 140 11/30/2023 Lab Results Component Value Date GLUCOSE 138 12/03/2023 CALCIUM 9.2 12/02/2023 POTASSIUM 4.4 12/02/2023 CO2 27 12/02/2023 CHLORIDE 100 12/02/2023 BUNSER 33 (H) 12/02/2023 CREATININE 1.87 (H) 12/02/2023 Lab Results Component Value Date WBC 6.4 12/02/2023 WBC 6.8 12/02/2023 WBC 7.8 11/30/2023 HGB 9.8 (L) 12/02/2023 HGB 9.7 (L) 12/02/2023 HGB 11.0 (L) 11/30/2023 HCT 30.8 (L) 12/02/2023 HCT 30.8 (L) 12/02/2023 HCT 34.6 (L) 11/30/2023 LABPLAT 191 12/02/2023 LABPLAT 193 12/02/2023 LABPLAT 205 11/30/2023 Lab Results Component Value Date INR 1.07 11/24/2023 INR 1.70 (H) 11/14/2023 INR 1.0 01/17/2022 PT 12.2 11/24/2023 PT 19.4 (H) 11/14/2023 PT 11.3 01/17/2022 APTT 46 (H) 11/24/2023 APTT 78 (H) 11/14/2023 APTT 43 (H) 01/17/2022 No components found for: TROPONIN PT/OT Evaluation PT Recommendation/Plan: Inpatient Rehab Facility (Per PT) OT Recommendation: Inpatient Rehab Facility Assessment/Plan Hospital Day: 10 Criss Ly is a 73 y.o. year old female who presented with cervical myelopathy (especially R hand). 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 If youare unable to reach them, you may contact the residents as listed. If it is after 6pm or you are unable to reach the VIOLENT CRIMES DETECTIVE or resident team, please page the Neurosurgery Call Pager at [phone]. Note created by Fredy Portillo MD PhD on 12/03/2023 at 9:27 AM. Cosigned by Brennan Castillo MD at 12/03/2023 9:30 AM CDT * Charlene Krishnamurthy, PT - 12/02/2023 4:07 PM CDT Physical Therapy 12/02/23 1607 PT Last Visit Session Type (PT POC update) Other Comments Other PT Comments goals and treatment plan reviewed with Erick RODGERS this pm, patient is progressing nicely, goals updated. * Stan Johnson, OT - 12/02/2023 12:59 PM CDT Occupational Therapy Occupational Therapy Progress Note NOTE: This is a summary note of the winter components of the treatment session. For full details, review chart for all flowsheets documented on by this occupational therapy clinician on this date. Vitalsigns documented in vital signs flowsheet. Care plan progress documented in Care Plan Activity. For questions, please review the treatment team and contact the occupational therapist currently assigned to this patient. If an occupational therapist is not assigned to this patient, please call [phone]. 12/02/23 0763 General Session Type Treatment OT Received On 12/02/23 Safe Environment Patient found in supine;Arm band checked;Gait belt utilized for all out of bed mobility Subjective Agreeable to Therapy Family/Caregiver Present No Precautions Precautions Cervical spine Weight Bearing Restrictions No Braces/Orthoses Cervical collar (Hoopa J donned for entire session) Precaution Handout Issued No Precaution Comments Verbally reviewed precautions prior to mobility Pain Assessment Pain Assessment 0-10 Pain Score 5 - Moderate pain Pain Location Back (Lumbar) Pain Orientation Posterior Pain Interventions Repositioned;RN Notified (SEBASTIÁN Cruz) Balance Balance Yes Dynamic Sitting Balance Dynamic Sitting-Balance Support No upper extremity supported Dynamic Sitting-Balance Lateral lean;Forward lean;Reaching for objects;Reaching across midline Dynamic Sitting-Sitting Surface Bed Dynamic Sitting-Level of Assistance Close supervision Dynamic Sitting-Comments Sup for safety Dynamic Standing Balance Dynamic Standing-Balance Support Unilateral upper extremity supported Dynamic Standing-Balance Lateral lean;Forward lean;Reaching for objects;Reaching across midline Dynamic Standing-Standing Surface Floor Dynamic Standing-Level of Assistance Minimum assistance Dynamic Standing-Comments Min A for balance and safety ADL ADLS (WDL) X Grooming Grooming: Where assessed Standing at sink Grooming: Level of assistance Minimum Assist Grooming: Assistance with Safety;Balance (Set up for task, Min for balance) LE Dressing LE Dressing: Where assessed Chair LE Dressing: Level of assistance Moderate Assist LE Dressing: Assistance with Thread RLE into pants;Thread LLE into pants;Pull up over hips (Mod for task) Toileting Toileting: Where assessed Toilet Toileting: Level of assistance Minimum Assist Toileting: Assistance with Clothing management up;Clothing management down (Min A for task) Room Mobility Room Mobility: Where assessed To/from bathroom in Pt's room Health Management: Equipment Walker Room Mobility: Level of Assistance Minimum Assist Room Mobility comment Min A for balance and safety Bed Mobility Bed Mobility No (Pt found up in chair upon therapist arrival) Transfers Transfer Yes Transfer 1 Transfer From 1 Sit Transfer Type 1 To and from Transfer to 1 Stand Technique 1 Sit to stand;Stand to sit Transfer Device 1 Wheeled walker Transfer Level of Assistance 1 Minimum Assist Trials/Comments 1 Min A for balance , force production, and balance Toilet Transfers Toilet Transfer From Chair with arms Toilet Transfer Type To and from Toilet Transfer to Raised toilet seat with rails Toilet Transfer Technique Ambulating Toilet Transfer: Equipment Wheeled walker Toilet Transfers Minimal assistance Toilet Transfers Comments Min A for balance and force production Cognition Overall Cognitive Status WFL Arousal/Alertness Alert;Appropriate responses to stimuli Attention Span Appears intact Memory Appears intact Current communication Appears Intact Orientation Oriented X4 (person, place, time, situation) Following Commands Follows all commands and directions without difficulty Safety Judgment Good awareness of safety precautions Awareness of Errors Good awareness of errors made Insight Fully aware of deficits Problem Solving Able to problem solve independently Compliance/Behavior Easy to engage Perseveration Not present Other Comments Comments Treatment session: Therapist provided education on lowerbody dressing techniques and toileting techniques. Pt shows improvement in ability to complete ADLs but still requires Min A to successfully complete self care tasks. Pt would benefit from continued skilled OT services to improve ADL/IADL ind, balance, and safety. Daily Activity - 6 Clicks Putting on and taking off regular lower body clothing 2 Bathing 3 Toileting 3 Putting on and taking off upper body clothing 4 Personal Grooming 3 Eating Meals 4 Total Score (range 6-24) 19 Score Interpretation 40.22 Safe Environment End of Therapy Session Safe Environment End of Therapy Session Patient left in recliner;RN notified;Call light within reach;Overbed table within reach Assessment Problem List Decreased endurance;Decreased balance;Decreased fine motor control;Decreased functional mobility;Decreased gross motor control;Decreased ADL independence;Decreased IADL independence;Decreased upper extremity strength Barriers to Discharge Current Mobility Status;Current ADL Status Barrier Comments Fall risk Plan Plan Continue with current plan;If this is the last note, consider this the discharge summary Recommendation/Plan OT Recommendation Inpatient Rehab Facility Patient at high risk for Falls;Readmission;Injury due to decreased ability to care for self;Injury due to reduced functional status;Injury due to balance deficits Recommend Inpatient Rehab/Acute Rehab due to Ability to actively participate in intensive therapy 3hours/day, 5 days/week or 900 minutes per week;Not at baseline due to impaired ability to complete ADLs;Highly motivated to participate in therapy;Impaired ability to complete functional mobility OT Frequency during current admission 5-7x/wk Treatment/Interventions during current admission ADL/IADL retraining;Balance Training;Bed mobility;Endurance training;Functional activity;Functional mobility training;Functional transfer training OT Equipment Recommended Wheeled walker Progress during current admission Progressing toward goals OT - Next Appointment 12/03/23 OT - OK to Discharge No Multi-Disciplinary Problems (from Occupational Therapy) Active Problems Problem: Dressings Lower Extremities Start Date: 11/26/23 Goal Start Date Expected End Date End Date STG - Patient to complete lower body dressing 11/26/23 12/03/23 -- Goal Details: Sup with AE PRN Problem: Toileting Start Date: 11/26/23 Goal Start Date Expected End Date End Date STG - Patient will complete toileting tasks with 11/26/23 12/03/23 -- Goal Details: Sup Problem: Transfers Start Date: 11/26/23 Goal Start Date Expected End Date End Date STG - Patient will perform toilet transfer 11/26/23 12/03/23 -- Goal Details: Sup to toilet in bathroom Problem: Precautions Start Date: 11/26/23 Goal Start Date Expected End Date End Date STG - Patient will demonstrate precautions consistently during ADL tasks/functional mobility. 11/26/23 12/03/23 -- Goal Details: Sup Problem: OT Misc Start Date: 11/26/23 Goal Start Date Expected End Date End Date OT LTG - Misc 1 11/26/23 12/10/23 -- Goal Details: Pt will be able to complete all ADLs with sup and AE PRN * Erick Viera PTA - 12/02/2023 12:20 PM CDT Physical Therapy Patient Name: Criss Ly Date of : 1950 Date of Service: 12/02/2023 Physical Therapy Progress Note NOTE: This is a summary note of the winter components of the treatment session. For full details, review chart for all flowsheets documented on by this physical therapy clinician on this date. Vital signs documented in vital signs flowsheet. Care plan progress documented in Care Plan Activity. For questions, please review the treatment team and contact the PT or FIREWALL SECURITY ENGINEER currently assigned to this patient. If a physical therapy clinician is not assigned to this patient, please call [phone]. 12/02/23 1220 PT Last Visit Session Type Treatment PT Received On 12/02/23 Safe Environment Arm band checked;Patient found sitting in chair;Gait belt utilized for all out of bed mobility Subjective Agreeable to Therapy Family/Caregiver Present No Precautions Precautions Cervical spine Braces/Orthoses Cervical collar (Hoopa J donned throughout) Precaution Comments Verbally reviewed precautions prior to all mobility, pt. verbalized understanding and demonstrated adherence Activity Tolerance Activity Tolerance Comments Jhonathan: HARD Pain Assessment Pain Assessment 0-10 Pain Score 5 - Moderate pain Pain Location Back (Cervical) Pain Interventions Physical Therapy;Repositioned;Exercise Cognition Arousal/Alertness Alert;Appropriate responses to stimuli Orientation Oriented X4 (person, place, time, situation) Following Commands Follows all commands and directions without difficulty Static Sitting Balance Static Sitting-Balance Support Bilateral upper extremity supported;Feet supported Static Sitting-Sitting Surface Chair Static Sitting-Level of Assistance Distant supervision Static Sitting-Comment/# of Minutes Supervision for verbal cueing for upright posture, forward gaze, and vital sign monitoring Dynamic Sitting Balance Dynamic Sitting-Balance Support Bilateral upper extremity supported;Feet supported Dynamic Sitting-Balance Forward lean;Lateral lean Dynamic Sitting-Sitting Surface Chair Dynamic Sitting-Level of Assistance Close supervision Dynamic Sitting-Comments SBA for safety, vital sign montiroing, verbal cueing for precaution adherence Static Standing Balance Static Standing-Balance Support Bilateral upper extremity supported (on w/w) Static Standing-Standing Surface Floor Static Standing-Level of Assistance Minimum assistance Static Standing-Comment/# of Minutes Emily for proprioceptive cueing, verbal cueing for UE hand placement, upright posture, and maintaining a normal base of support Seated Seated-Exercises Lower extremity;Specific exercises Seated-Exercise Type Ankle pumps;Hip flexion;Long arc quads;ABduction;ADduction Reps/Sets 10/ Seated-Motion AROM Seated-Exercise Comments Pt. completed seated therapeutic exercises for increased strength, balance, and tolerance of functional activitiy. By completing these pre-gait activities, the patient is providing a cardiovascular warm up and assisting in maintaining joint integrity. Transfer 1 Transfer From 1 Sit Transfer Type 1 To and from Transfer to 1 Stand Technique 1 Sit to stand;Stand to sit Transfer Device 1 Wheeled walker Transfer Level of Assistance 1 Minimum Assist Ambulation 1 Distance (ft) 1 65ft (+ 65ft) Surface 1 Level tile Device 1 Wheeled walker Assistance 1 Minimum Assist Gait: Requires assist with 1 Maintaining balance;Maintaining hip extension Gait: Requires verbal cues to 1 Use assistive device safely;Improve upright posture;Increase step length;Prevent bumping into environmental barriers (dean/furniture);Increase base of support Gait Deviations 1 Antalgic;Base of support - decreased;Loreta - decreased;Posture - flexed;Step length - decreased;Heel strike - decreased;Path deviation;Weight bearing through UE???s - increased;Turns - difficulty Quality of Gait 1 Noted Trapezius Muscle Guarding, Significantly decreased loreta, downward gaze Ambulation Comments 1 one standing rest break Basic Mobility - 6 Click How much difficulty does the patient have: Turning over in bed 3 How much difficulty does the patient currently have: Sitting down and standing up from a chair witharms? 3 How much difficulty does the patient have: Moving from lying on back to sitting on the side of the bed? 3 How much difficulty does the patient have: Moving to and from a bed to a chair including wheelchair? 3 How much help does the patient currently need: Walk in hospital room? 3 How much help from another person does the patient currently need: Climbing 3-5 steps with a railing? 2 Total 6 Click Score (range 6-24) 17 Score Interpretation 39.67 Safe Environment End of Therapy Session Safe Environment End of Therapy Session Patient left in recliner;Chair alarm in place and activated;Call light within reach;Overbed table within reach Plan Plan Continue with current plan (Per PT) Recommendation/Plan PT Recommendation/Plan Inpatient Rehab Facility (Per PT) Patient at high risk for Falls;Readmission;Injury due to decreased ability to care for self;Injury due to reduced functional status;Injury due to balance deficits;Prolonged dependence for self care tasks;Developing secondary complications: poor health management;Difficulty maintaining orthopedic res trictions;Unable to don/doff bracing Recommend Inpatient Rehab/Acute Rehab due to Not at baseline due to impaired ability to complete ADLs;Impaired ability to complete functional mobility;Likely to return to the community at discharge with support system in place;Requires greater than 25% physical assistance with most mobility tasks;Requires multiple therapy disciplines to address functional deficits;Patient and caregiver require specialized skilled training due to new level of function/diagnosis;Requires skilled therapy interventions to address neurological deficits PT Frequency during current admission 5-7x/wk (Per PT) PT - Next Appointment 12/03/23 Multi-Disciplinary Problems (from Physical Therapy) Active Problems Problem: Mobility Start Date: 11/26/23 Goal Start Date Expected End Date End Date LTG - Patient will ambulate household distance 11/26/23 02/11/24 -- Goal Details: 200' with wheeled walker, modified independent Problem: Transfers Start Date: 11/26/23 Goal Start Date Expected End Date End Date STG - Transfer from bed to chair 11/26/23 12/12/23 -- Goal Details: With wheeled walker, modified independent Goal Start Date Expected End Date End Date STG - Patient to transfer to and from sit to supine 11/26/23 12/12/23 -- Goal Details: Modified independent Goal Start Date Expected End Date End Date STG - Patient will transfer sit to and from stand 11/26/23 12/12/23 -- Goal Details: With wheeled walker, modified independent Problem: Mobility Start Date: 12/02/23 Goal Start Date Expected End Date End Date STG - Patient will ambulate 12/02/23 12/12/23 -- Goal Details: 150' with wheeled walker, modified independent * Karely Wilkes MD PhD - 12/02/2023 6:57 AM CDT Neurosurgery Daily Progress Note 12/02/2023 Hospital Course 11/23 OR for C5-T2 PCDF. POC ok. Garcia replaced. 11/24 MAP goal liberalized, TTF. 11/25 muscle relaxers added. PT rec IPR. XR obtained. 11/26 BLE edema--home lasix restarted, maintenance fluids dc'd, chest XR pending, wound consult for skin integrity BLE, garcia dc'd voiding. 11/27 Hoopa J adjusted. Enema ordered 11/28 Worked with PT/OT. 11/29 Fluid bolus for DORINA. 11/30 Dressing changed. Subjective no complaints and pain well controlled Objective Physical Exam Awake, alert, regards, follows commands Oriented x3 PERRL, gaze conjugate, face symmetric BUE 4+ D 11/15 B/T 4- HG/IH BLE 4- HF 4+ KE/KF 4 DF/PF/EHL Incision c/d/I with aquacel Drain x1 holding suction Hoopa J collar in place Vitals 24hr min/max vitals: Temp Min: 36.2 ??C (97.2 ??F) Max: 36.9 ??C (98.4 ??F) Pulse Min: 69 Max: 93 Resp Min: 16 Max: 18 SpO2 Min: 95 % Max: 99 % MAP (mmHg) Min: 68 Max: 87 Intake and Output I/O last 2 completed shifts: In: 2210 [P.O.:2200; I.V.:10] Out: 2360 [Urine:2300; Drains:60] Medications Scheduled Scheduled Medications Medication Dose Route Frequency acetaminophen (TYLENOL) tablet 1,000 mg 1,000 mg oral Q6H GOPAL bisacodyL (DULCOLAX) suppository 10 mg 10 mg rectal Daily cloNIDine (CATAPRES) tablet 0.1 mg 0.1 mg oral BID enoxaparin (LOVENOX) syringe 30 mg 30 mg subcutaneous Daily-2100 famotidine (PEPCID) tablet 20 mg 20 mg oral BID fluticasone propionate (FLONASE) 50 mcg/actuation nasal spray 2 spray 2 spray each nostril Daily furosemide (LASIX) tablet 40 mg 40 mg oral Daily gabapentin (NEURONTIN) capsule 100 mg 100 mg oral TID insulin glargine (LANTUS, SEMGLEE) 100 unit/mL injection 16 Units 16 Units subcutaneous Nightly insulin lispro (HumaLOG, ADMELOG) 100 unit/mL injection 0-4 Units 0-4 Units subcutaneous Nightly insulin lispro (HumaLOG, ADMELOG) 100 unit/mL injection 0-5 Units 0-5 Units subcutaneous TID with meals insulin lispro (HumaLOG, ADMELOG) 100 unit/mL injection 6 Units 6 Units subcutaneous TID with meals methocarbamoL (ROBAXIN) tablet 500 mg 500 mg oral TID polyethylene glycol (MIRALAX) packet 17 g 17 g oral Daily senna-docusate (PERICOLACE) 8.6-50 mg per tablet 2 tablet 2 tablet oral BID simvastatin (ZOCOR) tablet 40 mg 40 mg oral Nightly sodium chloride 0.9% flush 0.5-20 mL 0.5-20 mL intra-catheter Q8H GOPAL As needed PRN Medications Medication Dose Route Frequency Last Admin albuterol HFA (PROVENTIL HFA,VENTOLIN HFA,PROAIR HFA) 90 mcg/actuation inhaler 2 puff 2 puff inhalation Q6H PRN (RT) Carrier Fluids for Secondary Infusion - 0.9% Sodium Chloride 30 mL intravenous PRN cyclobenzaprine (FLEXERIL) tablet 5 mg 5 mg oral TID PRN 5 mg at 12/02/23 0520 magnesium hydroxide (MILK OF MAGNESIA) 80 mg/mL (33.3 mg/mL as elemental magnesium) oral [id number] mL 30 mL oral Daily PRN 30 mL at 11/28/23 1021 ondansetron ODT (ZOFRAN-ODT) disintegrating tablet 4 mg 4 mg oral Q6H PRN Or ondansetron (ZOFRAN) injection 4 mg 4 mg intravenous Q6H PRN oxyCODONE (ROXICODONE) tablet 5 mg 5 mg oral Q4H PRN 5 mg at 12/02/23 0520 sodium chloride 0.9% flush 0.5-20 mL 0.5-20 mL intra-catheter PRN Labs Lab Results Component Value Date SODIUM 139 12/02/2023 SODIUM 140 11/30/2023 SODIUM 137 11/29/2023 Lab Results Component Value Date GLUCOSE 167 12/02/2023 CALCIUM 9.1 12/02/2023 POTASSIUM 4.3 12/02/2023 CO2 28 12/02/2023 CHLORIDE 102 12/02/2023 BUNSER 32 (H) 12/02/2023 CREATININE 1.74 (H) 12/02/2023 Lab Results Component Value Date WBC 6.8 12/02/2023 WBC 7.8 11/30/2023 WBC 8.9 11/29/2023 HGB 9.7 (L) 12/02/2023 HGB 11.0 (L) 11/30/2023 HGB 10.7 (L) 11/29/2023 HCT 30.8 (L) 12/02/2023 HCT 34.6 (L) 11/30/2023 HCT 33.0 (L) 11/29/2023 LABPLAT 193 12/02/2023 LABPLAT 205 11/30/2023 LABPLAT 180 11/29/2023 Lab Results Component Value Date INR 1.07 11/24/2023 INR 1.70 (H) 11/14/2023 INR 1.0 01/17/2022 PT 12.2 11/24/2023 PT 19.4 (H) 11/14/2023 PT 11.3 01/17/2022 APTT 46 (H) 11/24/2023 APTT 78 (H) 11/14/2023 APTT 43 (H) 01/17/2022 No components found for: TROPONIN PT/OT Evaluation PT Recommendation/Plan: Inpatient Rehab Facility (Per PT) OT Recommendation: Inpatient Rehab Facility Assessment/Plan Hospital Day: 9 Criss Ly is a 73 y.o. year old female who presented with cervical myelopathy (especially R hand). 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 If youare unable to reach them, you may contact the residents as listed. If it is after 6pm or you are unable to reach the VIOLENT CRIMES DETECTIVE or resident team, please page the Neurosurgery Call Pager at [phone]. Note created by Karely Wilkes MD PhD on 12/02/2023 at 6:57 AM. Cosigned by Brennan Castillo MD at 12/03/2023 9:30 AM CDT * Tessie Robertson, RD - 12/01/2023 8:53 PM CDT NUTRITION ASSESSMENT Nutrition Status: Patient does not meet ASPEN criteria for malnutrition at this time. REASON FOR ASSESSMENT: Length of Stay Encounter Date: 12/01/23 8:59 PM Admission Date: 11/24/2023 LOS: 7 days HPI: Patient is a 73 y.o. female PMHx of T2D, multilevel anterior cervical diskectomy, obesity, sarcoidosis who was admitted for posterior spinal fusion of C5-T2 and b/l foraminotomies on 11/23. 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 [...] Left 02/05/2016 Dr. David Sykes, [facility] - conversion of previous hip arthroplasty left hip: Conversion of Arthroplasty left hip TOTAL KNEE ARTHROPLASTY Left 09/27/2005 Left TKA - Dr. Cole Beckham TOTAL KNEE ARTHROPLASTY Right 08/27/2001 Right TKA - Dr. Kuldeep Basurto Social History Tobacco Use Smoking status: Never Passive exposure: Past Smokeless tobacco: Never Substance and Sexual Activity Drug use: Never Sexual activity: Defer Alcohol Use: Not At Risk (11/24/2023) AUDIT-C Frequency of Alcohol Consumption: Never Average Number of Drinks: Patient does not drink Frequency of Binge Drinking: Never MEDICATION/LAB REVIEW: Scheduled Meds: acetaminophen, 1,000 mg, oral, Q6H GOPAL bisacodyL, 10 mg, rectal, Daily cloNIDine, 0.1 mg, oral, BID enoxaparin, 30 mg, subcutaneous, Daily-2100 famotidine, 20 mg, oral, BID fluticasone propionate, 2 spray, each nostril, Daily furosemide, 40 mg, oral, Daily gabapentin, 100 mg, oral, TID insulin glargine, 16 Units, subcutaneous, Nightly insulin lispro, 0-4 Units, subcutaneous, Nightly insulin lispro, 0-5 Units, subcutaneous, TID with meals insulin lispro, 6 Units, subcutaneous, TID with meals methocarbamoL, 500 mg, oral, TID polyethylene glycol, 17 g, oral, Daily senna-docusate, 2 tablet, oral, BID simvastatin, 40 mg, oral, Nightly sodium chloride 0.9%, 0.5-20 mL, intra-catheter, Q8H GOPAL sodium chloride 0.9%, 0.5-20 mL, intra-catheter, Q8H GOPAL Continuous Infusions: PRN Meds: albuterol HFA sodium chloride 0.9% sodium chloride 0.9% cyclobenzaprine dextrose OR dextrose glucagon magnesium hydroxide ondansetron ODT OR ondansetron oxyCODONE sodium chloride 0.9% sodium chloride 0.9% Recent Labs Lab Units 11/30/232039 SODIUM mmol/L 140 POTASSIUM PLASMA mmol/L 4.4 CHLORIDE mmol/L 99 CO2 mmol/L 29 BUN SERUM mg/dL 26* CREATININE mg/dL 1.60* [id number] mL/min/1.73 m2 34* CALCIUM mg/dL 9.6 Recent Labs Lab Units 12/01/23 20312/01/23 1705 12/01/23 1154 12/01/23 0741 12/01/23 0316 11/30/23203911/30/232028 GLUCOSE mg/dL -- -- -- -- -- 130 -- POC GLUCOSE MONITOR mg/dL 164 142 157 148 147 -- 139 No results found for: ALT , AST , BILIRUBIN , ALKPHOS , LIPASE Lab Results Component Value Date HGBA1C 7.6 (H) 11/14/2023 HDL 45 09/17/2023 LDLCALC 65 09/17/2023 CHOL 134 09/17/2023 TRIG 121 09/17/2023 NURSING ASSESSMENT: Gera Scale Score: 19 Skin Integrity: Surgical incision Type of Wound (LDA): Surgical site Pressure Ulcer/Pressure Injury 11/25/23 Left Gluteal cleft (vertical crease between the buttocks)-Pressure Ulcer Status: Healing Edema: Trace, No pitting Vital Signs BP: 130/62 Temp: 36.8 ??C (98.3 ??F) Pulse: 78 Resp: 16 SpO2: 95 % Intake/Output Summary (Last 24 hours) at 12/01/20232058 Last data filed at 12/01/20232024 Gross per 24 hour Intake 2210 ml Output 2360 ml Net -150 ml Adult Malnutrition Scoring Tool (MST) What diet do you follow at home?: Consistent Carb/ Low sugar Have You Recently Lost Weight Without Trying?: No Have you been eating poorly because of a decreased appetite?: No Malnutrition Screening Tool (MST) Score: 0 Hunger Screen - Admission Within the past 12 months the food we bought just didn't last and we didn't have money to get more.: Never true Within the past 12 months we worried whether our food would run out before we got money to buy more.: Never true Anthropometrics Weight: 104.3 kg (229 lb 15 oz) Admission Weight : 104.3 kg Weight Change: -0.02 kg (-0.06 lbs) IBW/kg (Calculated) : 58.9 kg Height: 167.6 cm (5' 5.98 ) Weight in (lb) to have BMI = 25: 154.5 BMI (Calculated): 37.1 Wt Readings from Last 10 Encounters: 11/26/23 104.3 kg (229 lb 15 oz) 11/14/23 104.3 kg (230 lb) 10/08/23 103.5 kg (228 lb 3.2 oz) 09/22/23 108.9 kg (240 lb) 09/16/23 108.9 kg (240 lb) 08/27/23 108.9 kg (240 lb) 05/26/23 109 kg (240 lb 6.4 oz) 05/19/23 101.6 kg (224 lb) 03/28/23 98.9 kg (218 lb) 07/24/22 99.8 kg (220 lb) ESTIMATED NEEDS: . Dietary Orders (From admission, onward) Start Ordered 12/01/23 171 Oral Nutrition Supplements ([facility]) Select Supplement: Glucerna Shake - Jermaine All Meals Question: ([facility]) Select Supplement: Answer: Glucerna Shake - Jermaine 12/01/23 17111/25/23 0827 Adult Diet Restricted; Consistent Carbohydrate Diet effective now Question Answer Comment ([facility]) Diet type Restricted Diabetic: Consistent Carbohydrate 11/25/23 0826 Allergies: Reviewed. IMPRESSION: Pt reports no N/V, but reports she does not like the food. Pt reports at home consuming 2 meals perday, usual weight of 240#, standing scale at 230#. +BM yesterday. Pt reports not liking the food, willing to try glucerna to help meet nutrition needs. Pt reports no issues with chewing or swallowing. Menu provided for always available menu items. ASPEN MALNUTRITION ASSESSMENT: Date of completion: 12/01/2023 ASPEN/AND Malnutrition Screening: Patient does not meet malnutrition criteria NUTRITION FOCUSED PHYSICAL EXAM: Not clinically indicated, no concerns for malnutrition at this time. NUTRITION DIAGNOSIS: Nutrition Diagnosis 1: Inadequate energy intake Related to: Lack of interest, Loss of appetite Evidenced by: Patient interview INTERVENTION(S): Summary: Encouragement, Meals and snacks, Medical food supplement Continue consistent carb diet. Encouraged PO intake. Ordered glucerna chocolate TID to help meet nutrition needs. Provided menu and discussed always available menu items. GOAL(S): Adequate nutrition to meet estimated needs by next assessment MONITORING/EVALUATION: Appetite, Labs, Plan of care, PO intake, Stool patterns, Supplement tolerance, Weight changes Tessie Robertson MS RD LD #[phone] * Erikc Viera PTA - 12/01/2023 11:31 AM CDT Physical Therapy Patient Name: Criss Ly Date of : 1950 Date of Service: 12/01/2023 Physical Therapy Progress Note NOTE: This is a summary note of the winter components of the treatment session. For full details, review chart for all flowsheets documented on by this physical therapy clinician on this date. Vital signs documented in vital signs flowsheet. Care plan progress documented in Care Plan Activity. For questions, please review the treatment team and contact the PT or FIREWALL SECURITY ENGINEER currently assigned to this patient. If a physical therapy clinician is not assigned to this patient, please call [phone]. 12/01/23 113 PT Last Visit Session Type Treatment PT Received On 12/01/23 Safe Environment Arm band checked;Patient found sitting in chair;Gait belt not utilized, see comment Subjective Agreeable to Therapy Family/Caregiver Present No Precautions Precautions Cervical spine Braces/Orthoses Cervical collar (Hoopa J donned throughout) Precaution Comments Verbally reviewed precautions prior to all mobility, pt. verbalized understanding and demonstrated adherence Activity Tolerance Activity Tolerance Comments Jhonathan: Somewhat Hard Pain Assessment Pain Assessment 0-10 Pain Score 9 Pain Interventions RN Notified Cognition Arousal/Alertness Alert;Appropriate responses to stimuli Orientation Oriented X4 (person, place, time, situation) Following Commands Follows all commands and directions without difficulty Static Sitting Balance Static Sitting-Balance Support Bilateral upper extremity supported;Feet supported Static Sitting-Sitting Surface Chair Static Sitting-Level of Assistance Distant supervision Dynamic Sitting Balance Dynamic Sitting-Balance Support Bilateral upper extremity supported;Feet supported Dynamic Sitting-Balance Forward lean;Lateral lean (scooting to the edge of the chair) Dynamic Sitting-Sitting Surface Chair Dynamic Sitting-Level of Assistance Close supervision Static Standing Balance Static Standing-Balance Support Bilateral upper extremity supported (on w/w) Static Standing-Standing Surface Floor Static Standing-Level of Assistance Minimum assistance Seated Seated-Exercises Lower extremity;Specific exercises Seated-Exercise Type Ankle pumps;Hip flexion;Long arc quads;ABduction;ADduction Reps/Sets 10/ Seated-Motion AROM Seated-Exercise Comments Pt. completed seated therapeutic exercises for increased strength, balance, and tolerance of functional activitiy. By completing these pre-gait activities, the patient is providing a cardiovascular warm up and assisting in maintaining joint integrity. Transfer 1 Transfer From 1 Sit Transfer Type 1 To and from Transfer to 1 Stand Technique 1 Sit to stand;Stand to sit Transfer Device 1 Wheeled walker Transfer Level of Assistance 1 Minimum Assist Trials/Comments 1 Pt. required physical assistance for increased force production, anterior momentum, increasing hip and knee extension, controlling descent, improving upright posture. As well as, verbal and tactile cueing for UE hand placement, walker proximity, increasing base of support, and forward gaze. Ambulation 1 Distance (ft) 1 60 Surface 1 Level tile Device 1 Wheeled walker Assistance 1 Minimum Assist Gait: Requires assist with 1 Maintaining balance;Maintaining hip extension Gait: Requires verbal cues to 1 Use assistive device safely;Improve upright posture;Increase step length;Prevent bumping into environmental barriers (dean/furniture);Increase base of support Gait Deviations 1 Antalgic;Base of support - decreased;Loreta - decreased;Posture - flexed;Step length - decreased;Heel strike - decreased;Path deviation;Weight bearing through UE???s - increased;Turns - difficulty Ambulation Comments 1 distance limited by pain Basic Mobility - 6 Click How much difficulty does the patient have: Turning over in bed 3 How much difficulty does the patient currently have: Sitting down and standing up from a chair witharms? 3 How much difficulty does the patient have: Moving from lying on back to sitting on the side of the bed? 3 How much difficulty does the patient have: Moving to and from a bed to a chair including wheelchair? 3 How much help does the patient currently need: Walk in hospital room? 3 How much help from another person does the patient currently need: Climbing 3-5 steps with a railing? 2 Total 6 Click Score (range 6-24) 17 Score Interpretation 39.67 Safe Environment End of Therapy Session Safe Environment End of Therapy Session Patient left in recliner;Chair alarm in place and activated;RN notified;Call light within reach;Overbed table within reach Plan Plan Continue with current plan (Per PT) Recommendation/Plan PT Recommendation/Plan Inpatient Rehab Facility (Per PT) PT Frequency during current admission 5-7x/wk (Per PT) PT - Next Appointment 12/02/23 Multi-Disciplinary Problems (from Physical Therapy) Active Problems Problem: Mobility Start Date: 11/26/23 Goal Start Date Expected End Date End Date LTG - Patient will ambulate household distance 11/26/23 02/11/24 -- Goal Details: 50' with wheeled walker, modified independent Goal Start Date Expected End Date End Date STG - Patient will propel the wheelchair 11/26/23 12/03/23 -- Goal Details: 50' with supervision, level surfaces Problem: Transfers Start Date: 11/26/23 Goal Start Date Expected End Date End Date STG - Transfer from bed to chair 11/26/23 12/03/23 -- Goal Details: With wheeled walker, supervision Goal Start Date Expected End Date End Date STG - Patient to transfer to and from sit to supine 11/26/23 12/03/23 -- Goal Details: supervision Goal Start Date Expected End Date End Date STG - Patient will transfer sit to and from stand 11/26/23 12/03/23 -- Goal Details: With wheeled walker, supervision * Stan Johnson OT - 12/01/2023 8:49 AM CDT Occupational Therapy Occupational Therapy Progress Note NOTE: This is a summary note of the winter components of the treatment session. For full details, review chart for all flowsheets documented on by this occupational therapy clinician on this date. Vitalsigns documented in vital signs flowsheet. Care plan progress documented in Care Plan Activity. For questions, please review the treatment team and contact the occupational therapist currently assigned to this patient. If an occupational therapist is not assigned to this patient, please call [phone]. 12/01/23 0860 General Session Type Treatment OT Received On 12/01/23 Safe Environment Arm band checked;Patient found in supine;Gait belt utilized for all out of bed mobility Subjective Agreeable to Therapy Family/Caregiver Present No Precautions Precautions Fall risk;Cervical spine Weight Bearing Restrictions No Braces/Orthoses Cervical collar (Hoopa J donned for entire session) Precaution Handout Issued No Precaution Comments Verbally reviewed precautions prior to mobility. Pt demonstrated and verbalizedunderstanding. Pain Assessment Pain Assessment 0-10 Pain Score 5 - Moderate pain Pain Location Back (Cervical) Pain Orientation Posterior Pain Interventions Repositioned;RN Notified (SEBASTIÁN Ocampo present) Balance Balance Yes Dynamic Sitting Balance Dynamic Sitting-Balance Support No upper extremity supported Dynamic Sitting-Balance Lateral lean;Forward lean;Reaching for objects;Reaching across midline Dynamic Sitting-Sitting Surface Bed Dynamic Sitting-Level of Assistance Close supervision Dynamic Sitting-Comments Sup for safety Dynamic Standing Balance Dynamic Standing-Balance Support Bilateral upper extremity supported Dynamic Standing-Balance Lateral lean;Forward lean;Reaching for objects;Reaching across midline Dynamic Standing-Standing Surface Floor Dynamic Standing-Level of Assistance Minimum assistance Dynamic Standing-Comments Min A for balance during grooming tasks ADL ADLS (WDL) X Grooming Grooming: Where assessed Standing at sink Grooming: Level of assistance Minimum Assist Grooming: Assistance with Safety;Balance (Set up for task, Min A for balance) UE Dressing UE Dressing: Where assessed Sitting;Chair UE Dressing: Level of assistance Independent LE Dressing LE Dressing: Where assessed Chair LE Dressing: Level of assistance Moderate Assist LE Dressing: Assistance with Thread RLE into pants;Thread LLE into pants;Pull up over hips (Mod for task) Toileting Toileting: Where assessed Toilet Toileting: Level of assistance Minimum Assist Toileting: Assistance with Clothing management up;Clothing management down (Min for task) Room Mobility Room Mobility: Where assessed Pt's room Health Management: Equipment Walker Room Mobility: Level of Assistance Minimum Assist Room Mobility comment Min A for balance and safety Bed Mobility Bed Mobility No (Pt found up in chair) Transfers Transfer Yes Transfer 1 Transfer From 1 Sit Transfer Type 1 To and from Transfer to 1 Stand Technique 1 Sit to stand;Stand to sit Transfer Device 1 Wheeled walker Transfer Level of Assistance 1 Minimum Assist Trials/Comments 1 Min A for balance and force production Toilet Transfers Toilet Transfer From Chair with arms Toilet Transfer Type To and from Toilet Transfer to Raised toilet seat with rails Toilet Transfer Technique Ambulating Toilet Transfer: Equipment Wheeled walker Toilet Transfers Minimal assistance Toilet Transfers Comments Min A for balance and force production Cognition Overall Cognitive Status WFL Arousal/Alertness Appropriate responses to stimuli;Alert Attention Span Appears intact Memory Appears intact Current communication Appears Intact Orientation Oriented X4 (person, place, time, situation) Following Commands Follows all commands and directions without difficulty Safety Judgment Good awareness of safety precautions Awareness of Errors Good awareness of errors made Insight Fully aware of deficits Problem Solving Able to problem solve independently Compliance/Behavior Easy to engage Perseveration Not present Other Comments Comments Pt seen this date for treatment session focusing on functional transfers in preparation for self care tasks. Pt reports pain levels have improved as well as that she has been ambulating to the bathroom with assist. Pt would benefit from continued skilled OT services to improve ADL ind, balance, and safety. Daily Activity - 6 Clicks Putting on and taking off regular lower body clothing 2 Bathing 2 Toileting 3 Putting on and taking off upper body clothing 4 Personal Grooming 3 Eating Meals 4 Total Score (range 6-24) 18 Score Interpretation 38.66 Safe Environment End of Therapy Session Safe Environment End of Therapy Session Patient left in recliner;Chair alarm in place and activated;RN notified;Call light within reach;Overbed table within reach Assessment Problem List Decreased endurance;Decreased balance;Decreased fine motor control;Decreased functional mobility;Decreased gross motor control;Decreased ADL independence;Decreased IADL independence;Decreased upper extremity strength Barriers to Discharge Current Mobility Status;Current ADL Status Plan Plan If this is the last note, consider this the discharge summary;Alter current plan Plan Comments D/C rec altered to reflect Pt current status Recommendation/Plan OT Recommendation Inpatient Rehab Facility Patient at high risk for Falls;Readmission;Injury due to decreased ability to care for self;Injury due to reduced functional status;Injury due to balance deficits Recommend Inpatient Rehab/Acute Rehab due to Ability to actively participate in intensive therapy 3hours/day, 5 days/week or 900 minutes per week;Not at baseline due to impaired ability to complete ADLs;Highly motivated to participate in therapy;Impaired ability to complete functional mobility;Likely to return to the community at discharge with support system in place OT Frequency during current admission 5-7x/wk Treatment/Interventions during current admission ADL/IADL retraining;Balance Training;Bed mobility;Endurance training;Functional activity;Functional mobility training;Functional transfer training OT Equipment Recommended Wheeled walker Progress during current admission Progressing toward goals OT - Next Appointment 12/02/23 OT - OK to Discharge No Multi-Disciplinary Problems (from Occupational Therapy) Active Problems Problem: Dressings Lower Extremities Start Date: 11/26/23 Goal Start Date Expected End Date End Date STG - Patient to complete lower body dressing 11/26/23 12/03/23 -- Goal Details: Sup with AE PRN Problem: Toileting Start Date: 11/26/23 Goal Start Date Expected End Date End Date STG - Patient will complete toileting tasks with 11/26/23 12/03/23 -- Goal Details: Sup Problem: Transfers Start Date: 11/26/23 Goal Start Date Expected End Date End Date STG - Patient will perform toilet transfer 11/26/23 12/03/23 -- Goal Details: Sup to toilet in bathroom Problem: Precautions Start Date: 11/26/23 Goal Start Date Expected End Date End Date STG - Patient will demonstrate precautions consistently during ADL tasks/functional mobility. 11/26/23 12/03/23 -- Goal Details: Sup Problem: OT Misc Start Date: 11/26/23 Goal Start Date Expected End Date End Date OT LTG - Misc 1 11/26/23 12/10/23 -- Goal Details: Pt will be able to complete all ADLs with sup and AE PRN * Karely Wilkes MD PhD - 12/01/2023 8:02 AM CDT Neurosurgery Daily Progress Note 12/01/2023 Hospital Course 11/23 OR for C5-T2 PCDF. POC ok. Garcia replaced. 11/24 MAP goal liberalized, TTF. 11/25 muscle relaxers added. PT rec IPR. XR obtained. 11/26 BLE edema--home lasix restarted, maintenance fluids dc'd, chest XR pending, wound consult for skin integrity BLE, garcia dc'd voiding. 11/27 Hoopa J adjusted. Enema ordered 11/28 Worked with PT/OT. 11/29 Fluid bolus for DORINA. Subjective no complaints and pain well controlled Objective Physical Exam Awake, alert, regards, follows commands Oriented x3 PERRL, gaze conjugate, face symmetric BUE 4+ D 11/15 B/T 4- HG/IH BLE 4- HF 4+ KE/KF 4 DF/PF/EHL Incision c/d/I with aquacel Drain x1 holding suction Hoopa J collar in place Vitals 24hr min/max vitals: Temp Min: 36.3 ??C (97.3 ??F) Max: 37 ??C (98.6 ??F) Pulse Min: 66 Max: 93 Resp Min: 16 Max: 16 SpO2 Min: 97 % Max: 98 % MAP (mmHg) Min: 66 Max: 74 Intake and Output I/O last 2 completed shifts: In: 1890 [P.O.:1870; I.V.:20] Out: 1355 [Urine:1300; Drains:55] Medications Scheduled Scheduled Medications Medication Dose Route Frequency acetaminophen (TYLENOL) tablet 1,000 mg 1,000 mg oral Q6H GOPAL bisacodyL (DULCOLAX) suppository 10 mg 10 mg rectal Daily cloNIDine (CATAPRES) tablet 0.1 mg 0.1 mg oral BID enoxaparin (LOVENOX) syringe 30 mg 30 mg subcutaneous Daily-2100 famotidine (PEPCID) tablet 20 mg 20 mg oral BID fluticasone propionate (FLONASE) 50 mcg/actuation nasal spray 2 spray 2 spray each nostril Daily furosemide (LASIX) tablet 40 mg 40 mg oral Daily gabapentin (NEURONTIN) capsule 100 mg 100 mg oral TID insulin glargine (LANTUS, SEMGLEE) 100 unit/mL injection 16 Units 16 Units subcutaneous Nightly insulin lispro (HumaLOG, ADMELOG) 100 unit/mL injection 0-4 Units 0-4 Units subcutaneous Nightly insulin lispro (HumaLOG, ADMELOG) 100 unit/mL injection 0-5 Units 0-5 Units subcutaneous TID with meals insulin lispro (HumaLOG, ADMELOG) 100 unit/mL injection 6 Units 6 Units subcutaneous TID with meals methocarbamoL (ROBAXIN) tablet 500 mg 500 mg oral TID polyethylene glycol (MIRALAX) packet 17 g 17 g oral Daily senna-docusate (PERICOLACE) 8.6-50 mg per tablet 2 tablet 2 tablet oral BID simvastatin (ZOCOR) tablet 40 mg 40 mg oral Nightly sodium chloride 0.9% flush 0.5-20 mL 0.5-20 mL intra-catheter Q8H GOPAL sodium chloride 0.9% flush 0.5-20 mL 0.5-20 mL intra-catheter Q8H GOPAL As needed PRN Medications Medication Dose Route Frequency Last Admin albuterol HFA (PROVENTIL HFA,VENTOLIN HFA,PROAIR HFA) 90 mcg/actuation inhaler 2 puff 2 puff inhalation Q6H PRN (RT) Carrier Fluids for Secondary Infusion - 0.9% Sodium Chloride 30 mL intravenous PRN Carrier Fluids for Secondary Infusion - 0.9% Sodium Chloride 30 mL intravenous PRN cyclobenzaprine (FLEXERIL) tablet 5 mg 5 mg oral TID PRN 5 mg at 11/30/23 0534 dextrose gel in packet 15 g 15 g oral Q15 Min PRN Or dextrose (D10W) 10% bolus 250 mL 250 mL intravenous Q15 Min PRN glucagon injection 1 mg 1 mg intramuscular Q30 Min PRN magnesium hydroxide (MILK OF MAGNESIA) 80 mg/mL (33.3 mg/mL as elemental magnesium) oral [id number] mL 30 mL oral Daily PRN 30 mL at 11/28/23 1021 ondansetron ODT (ZOFRAN-ODT) disintegrating tablet 4 mg 4 mg oral Q6H PRN Or ondansetron (ZOFRAN) injection 4 mg 4 mg intravenous Q6H PRN oxyCODONE (ROXICODONE) tablet 5 mg 5 mg oral Q4H PRN 5 mg at 12/01/23 0535 sodium chloride 0.9% flush 0.5-20 mL 0.5-20 mL intra-catheter PRN sodium chloride 0.9% flush 0.5-20 mL 0.5-20 mL intra-catheter PRN Labs Lab Results Component Value Date SODIUM 140 11/30/2023 SODIUM 137 11/29/2023 SODIUM 140 11/28/2023 Lab Results Component Value Date GLUCOSE 148 12/01/2023 CALCIUM 9.6 11/30/2023 POTASSIUM 4.4 11/30/2023 CO2 29 11/30/2023 CHLORIDE 99 11/30/2023 BUNSER 26 (H) 11/30/2023 CREATININE 1.60 (H) 11/30/2023 Lab Results Component Value Date WBC 7.8 11/30/2023 WBC 8.9 11/29/2023 WBC 9.4 11/28/2023 HGB 11.0 (L) 11/30/2023 HGB 10.7 (L) 11/29/2023 HGB 10.3 (L) 11/28/2023 HCT 34.6 (L) 11/30/2023 HCT 33.0 (L) 11/29/2023 HCT 33.1 (L) 11/28/2023 LABPLAT 205 11/30/2023 LABPLAT 180 11/29/2023 LABPLAT 179 11/28/2023 Lab Results Component Value Date INR 1.07 11/24/2023 INR 1.70 (H) 11/14/2023 INR 1.0 01/17/2022 PT 12.2 11/24/2023 PT 19.4 (H) 11/14/2023 PT 11.3 01/17/2022 APTT 46 (H) 11/24/2023 APTT 78 (H) 11/14/2023 APTT 43 (H) 01/17/2022 No components found for: TROPONIN PT/OT Evaluation PT Recommendation/Plan: Inpatient Rehab Facility (per PT) OT Recommendation: Long-Term Facility Assessment/Plan Hospital Day: 8 Criss Ly is a 73 y.o. year old female who presented with cervical myelopathy (especially R hand). 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 If youare unable to reach them, you may contact the residents as listed. If it is after 6pm or you are unable to reach the [employer]ECT[employer] or resident team, please page the Neurosurgery Call Pager at [phone]. Note created by Karely Wilkes MD PhD on 12/01/2023 at 8:02 AM. Cosigned by Brennan Castillo MD at 12/01/2023 11:16 AM CDT * Karely Wilkes MD PhD - 11/30/2023 9:35 AM CDT Neurosurgery Daily Progress Note 11/30/2023 Hospital Course 11/23 OR for C5-T2 PCDF. POC ok. Garcia replaced. 11/24 MAP goal liberalized, TTF. 11/25 muscle relaxers added. PT rec IPR. XR obtained. 11/26 BLE edema--home lasix restarted, maintenance fluids dc'd, chest XR pending, wound consult for skin integrity BLE, garcia dc'd voiding. 11/27 Hoopa J adjusted. Enema ordered 11/28 Worked with PT/OT. Subjective no complaints and pain well controlled Objective Physical Exam Awake, alert, regards, follows commands Oriented x3 PERRL, gaze conjugate, face symmetric BUE 4+ D 11/15 B/T 4- HG/IH BLE 4- HF 4+ KE/KF 4 DF/PF/EHL Incision c/d/I with aquacel Drain x1 holding suction Hoopa J collar in place Vitals 24hr min/max vitals: Temp Min: 36.1 ??C (97 ??F) Max: 37.1 ??C (98.8 ??F) Pulse Min: 57 Max: 86 Resp Min: 16 Max: 18 SpO2 Min: 96 % Max: 99 % MAP (mmHg) Min: 69 Max: 85 Intake and Output I/O last 2 completed shifts: In: 2360 [P.O.:2350; I.V.:10] Out: 1600 [Urine:1500; Drains:100] Medications Scheduled Scheduled Medications Medication Dose Route Frequency acetaminophen (TYLENOL) tablet 1,000 mg 1,000 mg oral Q6H GOPAL bisacodyL (DULCOLAX) suppository 10 mg 10 mg rectal Daily cloNIDine (CATAPRES) tablet 0.1 mg 0.1 mg oral BID enoxaparin (LOVENOX) syringe 30 mg 30 mg subcutaneous Daily-2100 famotidine (PEPCID) tablet 20 mg 20 mg oral BID fluticasone propionate (FLONASE) 50 mcg/actuation nasal spray 2 spray 2 spray each nostril Daily furosemide (LASIX) tablet 40 mg 40 mg oral Daily gabapentin (NEURONTIN) capsule 100 mg 100 mg oral TID insulin glargine (LANTUS, SEMGLEE) 100 unit/mL injection 15 Units 15 Units subcutaneous Nightly insulin lispro (HumaLOG, ADMELOG) 100 unit/mL injection 0-4 Units 0-4 Units subcutaneous Nightly insulin lispro (HumaLOG, ADMELOG) 100 unit/mL injection 0-5 Units 0-5 Units subcutaneous TID with meals insulin lispro (HumaLOG, ADMELOG) 100 unit/mL injection 6 Units 6 Units subcutaneous TID with meals methocarbamoL (ROBAXIN) tablet 500 mg 500 mg oral TID polyethylene glycol (MIRALAX) packet 17 g 17 g oral Daily senna-docusate (PERICOLACE) 8.6-50 mg per tablet 2 tablet 2 tablet oral BID simvastatin (ZOCOR) tablet 40 mg 40 mg oral Nightly sodium chloride 0.9% flush 0.5-20 mL 0.5-20 mL intra-catheter Q8H GOPAL sodium chloride 0.9% flush 0.5-20 mL 0.5-20 mL intra-catheter Q8H GOPAL As needed PRN Medications Medication Dose Route Frequency Last Admin albuterol HFA (PROVENTIL HFA,VENTOLIN HFA,PROAIR HFA) 90 mcg/actuation inhaler 2 puff 2 puff inhalation Q6H PRN (RT) Carrier Fluids for Secondary Infusion - 0.9% Sodium Chloride 30 mL intravenous PRN Carrier Fluids for Secondary Infusion - 0.9% Sodium Chloride 30 mL intravenous PRN cyclobenzaprine (FLEXERIL) tablet 5 mg 5 mg oral TID PRN 5 mg at 11/30/23 0534 dextrose gel in packet 15 g 15 g oral Q15 Min PRN Or dextrose (D10W) 10% bolus 250 mL 250 mL intravenous Q15 Min PRN glucagon injection 1 mg 1 mg intramuscular Q30 Min PRN magnesium hydroxide (MILK OF MAGNESIA) 80 mg/mL (33.3 mg/mL as elemental magnesium) oral [id number] mL 30 mL oral Daily PRN 30 mL at 11/28/23 1021 ondansetron ODT (ZOFRAN-ODT) disintegrating tablet 4 mg 4 mg oral Q6H PRN Or ondansetron (ZOFRAN) injection 4 mg 4 mg intravenous Q6H PRN oxyCODONE (ROXICODONE) tablet 5 mg 5 mg oral Q4H PRN 5 mg at 11/30/23 0230 sodium chloride 0.9% flush 0.5-20 mL 0.5-20 mL intra-catheter PRN sodium chloride 0.9% flush 0.5-20 mL 0.5-20 mL intra-catheter PRN Labs Lab Results Component Value Date SODIUM 137 11/29/2023 SODIUM 140 11/28/2023 SODIUM 143 11/27/2023 Lab Results Component Value Date GLUCOSE 166 11/30/2023 CALCIUM 9.5 11/29/2023 POTASSIUM 4.1 11/29/2023 CO2 27 11/29/2023 CHLORIDE 100 11/29/2023 BUNSER 25 11/29/2023 CREATININE 1.50 (H) 11/29/2023 Lab Results Component Value Date WBC 8.9 11/29/2023 WBC 9.4 11/28/2023 WBC 8.3 11/27/2023 HGB 10.7 (L) 11/29/2023 HGB 10.3 (L) 11/28/2023 HGB 10.2 (L) 11/27/2023 HCT 33.0 (L) 11/29/2023 HCT 33.1 (L) 11/28/2023 HCT 32.7 (L) 11/27/2023 LABPLAT 180 11/29/2023 LABPLAT 179 11/28/2023 LABPLAT 168 11/27/2023 Lab Results Component Value Date INR 1.07 11/24/2023 INR 1.70 (H) 11/14/2023 INR 1.0 01/17/2022 PT 12.2 11/24/2023 PT 19.4 (H) 11/14/2023 PT 11.3 01/17/2022 APTT 46 (H) 11/24/2023 APTT 78 (H) 11/14/2023 APTT 43 (H) 01/17/2022 No components found for: TROPONIN PT/OT Evaluation PT Recommendation/Plan: Inpatient Rehab Facility (per PT) OT Recommendation: Long-Term Facility Assessment/Plan Hospital Day: 7 Criss Ly is a 73 y.o. year old female who presented with cervical myelopathy (especially R hand). 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 If youare unable to reach them, you may contact the residents as listed. If it is after 6pm or you are unable to reach the [employer] or resident team, please page the Neurosurgery Call Pager at [phone]. Note created by Karely Wilkes MD PhD on 11/30/2023 at 9:35 AM. Cosigned by Shahid Lewis MD at 11/30/2023 3:10 PM CDT * Naomy Chavez MD - 11/29/2023 8:37 AM CDT Neurosurgery Daily Progress Note 11/29/2023 Hospital Course 11/23 OR for C5-T2 PCDF. POC ok. Garcia replaced. 11/24 MAP goal liberalized, TTF. 11/25 muscle relaxers added. PT rec IPR. XR obtained. 11/26 BLE edema--home lasix restarted, maintenance fluids dc'd, chest XR pending, wound consult for skin integrity BLE, garcia dc'd voiding. 11/27 Hoopa J adjusted. Enema ordered Subjective no complaints and pain well controlled Objective Physical Exam Awake, alert, regards, follows commands Oriented x3 PERRL, gaze conjugate, face symmetric BUE 4+ D 11/15 B/T 4- HG/IH BLE 4- HF 4+ KE/KF 4 DF/PF/EHL Incision c/d/I with aquacel Drain x1 holding suction Hoopa J collar in place Vitals 24hr min/max vitals: Temp Min: 36.2 ??C (97.2 ??F) Max: 37.1 ??C (98.7 ??F) Pulse Min: 59 Max: 74 Resp Min: 15 Max: 16 SpO2 Min: 95 % Max: 99 % MAP (mmHg) Min: 83 Max: 95 Intake and Output I/O last 2 completed shifts: In: - Out: 100 [Drains:100] Medications Scheduled Scheduled Medications Medication Dose Route Frequency acetaminophen (TYLENOL) tablet 1,000 mg 1,000 mg oral Q6H GOPAL bisacodyL (DULCOLAX) suppository 10 mg 10 mg rectal Daily cloNIDine (CATAPRES) tablet 0.1 mg 0.1 mg oral BID docusate with cottonseed oil enema rectal Once enoxaparin (LOVENOX) syringe 30 mg 30 mg subcutaneous Daily-2099 famotidine (PEPCID) tablet 20 mg 20 mg oral BID fluticasone propionate (FLONASE) 50 mcg/actuation nasal spray 2 spray 2 spray each nostril Daily furosemide (LASIX) tablet 40 mg 40 mg oral Daily gabapentin (NEURONTIN) capsule 100 mg 100 mg oral TID insulin glargine (LANTUS, SEMGLEE) 100 unit/mL injection 15 Units 15 Units subcutaneous Nightly insulin lispro (HumaLOG, ADMELOG) 100 unit/mL injection 0-4 Units 0-4 Units subcutaneous Nightly insulin lispro (HumaLOG, ADMELOG) 100 unit/mL injection 0-5 Units 0-5 Units subcutaneous TID with meals insulin lispro (HumaLOG, ADMELOG) 100 unit/mL injection 6 Units 6 Units subcutaneous TID with meals methocarbamoL (ROBAXIN) tablet 500 mg 500 mg oral TID polyethylene glycol (MIRALAX) packet 17 g 17 g oral Daily senna-docusate (PERICOLACE) 8.6-50 mg per tablet 2 tablet 2 tablet oral BID simvastatin (ZOCOR) tablet 40 mg 40 mg oral Nightly sodium chloride 0.9% flush 0.5-20 mL 0.5-20 mL intra-catheter Q8H GOPAL sodium chloride 0.9% flush 0.5-20 mL 0.5-20 mL intra-catheter Q8H GOPAL As needed PRN Medications Medication Dose Route Frequency Last Admin albuterol HFA (PROVENTIL HFA,VENTOLIN HFA,PROAIR HFA) 90 mcg/actuation inhaler 2 puff 2 puff inhalation Q6H PRN (RT) Carrier Fluids for Secondary Infusion - 0.9% Sodium Chloride 30 mL intravenous PRN Carrier Fluids for Secondary Infusion - 0.9% Sodium Chloride 30 mL intravenous PRN cyclobenzaprine (FLEXERIL) tablet 5 mg 5 mg oral TID PRN 5 mg at 11/29/23 0604 dextrose gel in packet 15 g 15 g oral Q15 Min PRN Or dextrose (D10W) 10% bolus 250 mL 250 mL intravenous Q15 Min PRN glucagon injection 1 mg 1 mg intramuscular Q30 Min PRN magnesium hydroxide (MILK OF MAGNESIA) 80 mg/mL (33.3 mg/mL as elemental magnesium) oral [id number] mL 30 mL oral Daily PRN 30 mL at 11/28/23 1021 ondansetron ODT (ZOFRAN-ODT) disintegrating tablet 4 mg 4 mg oral Q6H PRN Or ondansetron (ZOFRAN) injection 4 mg 4 mg intravenous Q6H PRN oxyCODONE (ROXICODONE) tablet 5 mg 5 mg oral Q4H PRN 5 mg at 11/29/23 0604 sodium chloride 0.9% flush 0.5-20 mL 0.5-20 mL intra-catheter PRN sodium chloride 0.9% flush 0.5-20 mL 0.5-20 mL intra-catheter PRN Labs Lab Results Component Value Date SODIUM 140 11/28/2023 SODIUM 143 11/27/2023 SODIUM 141 11/26/2023 Lab Results Component Value Date GLUCOSE 167 11/29/2023 CALCIUM 9.1 11/28/2023 POTASSIUM 3.9 11/28/2023 CO2 27 11/28/2023 CHLORIDE 104 11/28/2023 BUNSER 22 11/28/2023 CREATININE 1.44 (H) 11/28/2023 Lab Results Component Value Date WBC 9.4 11/28/2023 WBC 8.3 11/27/2023 WBC 8.6 11/26/2023 HGB 10.3 (L) 11/28/2023 HGB 10.2 (L) 11/27/2023 HGB 9.4 (L) 11/26/2023 HCT 33.1 (L) 11/28/2023 HCT 32.7 (L) 11/27/2023 HCT 29.2 (L) 11/26/2023 LABPLAT 179 11/28/2023 LABPLAT 168 11/27/2023 LABPLAT 148 (L) 11/26/2023 Lab Results Component Value Date INR 1.07 11/24/2023 INR 1.70 (H) 11/14/2023 INR 1.0 01/17/2022 PT 12.2 11/24/2023 PT 19.4 (H) 11/14/2023 PT 11.3 01/17/2022 APTT 46 (H) 11/24/2023 APTT 78 (H) 11/14/2023 APTT 43 (H) 01/17/2022 No components found for: TROPONIN PT/OT Evaluation PT Recommendation/Plan: Inpatient Rehab Facility OT Recommendation: Long-Term Facility Assessment/Plan Hospital Day: 6 Criss Ly is a 73 y.o. year old female who presented with cervical myelopathy (especially R hand). 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 If youare unable to reach them, you may contact the residents as listed. If it is after 6pm or you are unable to reach the [facility]IVE or resident team, please page the Neurosurgery Call Pager at [phone]. Note created by Naomy Chavez MD on 11/29/2023 at 8:37 AM. Cosigned by Brennan Castillo MD at 11/30/2023 9:48 AM CDT * Janel Norwood, FIREW[employer] SECURITY ENGINEER - 11/29/2023 8:06 AM CDT Physical Therapy Progress Note NOTE: This is a summary note of the winter components of the treatment session. For full details, review chart for all flowsheets documented on by this physical therapy clinician on this date. Vital signs documented in vital signs flowsheet. Care plan progress documented in Care Plan Activity. For questions, please review the treatment team and contact the PT or FIREWALL SECURITY ENGINEER currently assigned to this patient. If a physical therapy clinician is not assigned to this patient, please call [phone]. 11/29/23 0806 PT Last Visit Session Type Treatment PT Received On 11/29/23 Safe Environment Arm band checked;Patient found sitting in chair;Gait belt utilized for all out of bed mobility Subjective Agreeable to Therapy Family/Caregiver Present No Precautions Precautions Fall risk;Cervical spine Braces/Orthoses Cervical collar Pain Assessment Pain Assessment 0-10 Pain Score 5 - Moderate pain Pain Location Back (Cervical) Pain Interventions Repositioned;RN Notified Cognition Orientation Oriented X4 (person, place, time, situation) Following Commands Follows all commands and directions without difficulty Static Sitting Balance Static Sitting-Balance Support Feet supported Static Sitting-Sitting Surface Chair Static Sitting-Level of Assistance Close supervision Static Sitting-Comment/# of Minutes supervision for safety Static Standing Balance Static Standing-Balance Support Bilateral upper extremity supported Static Standing-Standing Surface Floor Static Standing-Level of Assistance Minimum assistance Static Standing-Comment/# of Minutes assist for balance Bed Mobility 1 Bed Mobility From 1 Edge of bed Bed Mobility Type 1 To Bed Mobility to 1 Supine Level of Assistance 1 Minimum Assist Bed Mobility Comments 1 via log roll and assist for maneuvering bilateral LE's Transfer 1 Transfer From 1 Sit Transfer Type 1 To and from Transfer to 1 Stand Technique 1 Sit to stand;Stand to sit Transfer Device 1 Wheeled walker Transfer Level of Assistance 1 Minimum Assist Trials/Comments 1 sit to stand x 3 reps. assist for force production and balance Ambulation 1 Distance (ft) 1 50 Surface 1 Level tile Device 1 Wheeled walker Assistance 1 Minimum Assist Gait: Requires assist with 1 Maintaining balance Gait: Requires verbal cues to 1 Use assistive device safely;Improve upright posture;Increase step length Gait Deviations 1 Antalgic;Base of support - decreased;Loreta - decreased;Posture - flexed;Step length - decreased Basic Mobility - 6 Click How much difficulty does the patient have: Turning over in bed 3 How much difficulty does the patient currently have: Sitting down and standing up from a chair witharms? 3 How much difficulty does the patient have: Moving from lying on back to sitting on the side of the bed? 3 How much difficulty does the patient have: Moving to and from a bed to a chair including wheelchair? 3 How much help does the patient currently need: Walk in hospital room? 3 How much help from another person does the patient currently need: Climbing 3-5 steps with a railing? 2 Total 6 Click Score (range 6-24) 17 Score Interpretation 39.67 Safe Environment End of Therapy Session Safe Environment End of Therapy Session Patient left supine in bed;Bed alarm in place and activated;RN notified;Call light within reach;Overbed table within reach Plan Plan Continue with current plan Recommendation/Plan PT Recommendation/Plan Inpatient Rehab Facility (per PT) Patient at high risk for Falls;Readmission;Injury due to decreased ability to care for self;Injury due to reduced functional status;Injury due to balance deficits;Prolonged dependence for self care tasks;Difficulty maintaining orthopedic restrictions;Unable to don/doff bracing (per PT) Recommend Inpatient Rehab/Acute Rehab due to Not at baseline due to impaired ability to complete ADLs;Impaired ability to complete functional mobility;Likely to return to the community at discharge with support system in place;Requires greater than 25% physical assistance with most mobility tasks;Requires multiple therapy disciplines to address functional deficits;Patient and caregiver require specialized skilled training due to new level of function/diagnosis;Requires skilled therapy interventions to address neurological deficits (per PT) PT Frequency during current admission 5-7x/wk (per PT) Progress during current admission Progressing toward goals PT - Next Appointment 12/01/23 Multi-Disciplinary Problems (from Physical Therapy) Active Problems Problem: Mobility Start Date: 11/26/23 Goal Start Date Expected End Date End Date LTG - Patient will ambulate household distance 11/26/23 02/11/24 -- Goal Details: 50' with wheeled walker, modified independent Goal Start Date Expected End Date End Date STG - Patient will propel the wheelchair 11/26/23 12/03/23 -- Goal Details: 50' with supervision, level surfaces Goal Start Date Expected End Date End Date STG - Patient will ambulate 11/26/23 12/03/23 -- Goal Details: 40' with wheeled walker, minimal assistance Problem: Transfers Start Date: 11/26/23 Goal Start Date Expected End Date End Date STG - Transfer from bed to chair 11/26/23 12/03/23 -- Goal Details: With wheeled walker, supervision Goal Start Date Expected End Date End Date STG - Patient to transfer to and from sit to supine 11/26/23 12/03/23 -- Goal Details: supervision Goal Start Date Expected End Date End Date STG - Patient will transfer sit to and from stand 11/26/23 12/03/23 -- Goal Details: With wheeled walker, supervision * Karely Wilkes MD PhD - 11/28/2023 8:42 AM CDT Neurosurgery Daily Progress Note 11/28/2023 Hospital Course 11/23 OR for C5-T2 PCDF. POC ok. Garcia replaced. 11/24 MAP goal liberalized, TTF. 11/25 muscle relaxers added. PT rec IPR. XR obtained. 11/26 BLE edema--home lasix restarted, maintenance fluids dc'd, chest XR pending, wound consult for skin integrity BLE, garcia dc'd voiding. Subjective no complaints and pain well controlled Objective Physical Exam Awake, alert, regards, follows commands Oriented x3 PERRL, gaze conjugate, face symmetric BUE 4+ D 5/5 B/T 4- HG/IH BLE 4- HF 4+ KE/KF 4 DF/PF/EHL Incision c/d/I with aquacel Drain x1 holding suction Hoopa J collar in place Vitals 24hr min/max vitals: Temp Min: 36.3 ??C (97.4 ??F) Max: 37.1 ??C (98.7 ??F) Pulse Min: 64 Max: 73 Resp Min: 14 Max: 16 SpO2 Min: 93 % Max: 100 % MAP (mmHg) Min: 73 Max: 89 Intake and Output I/O last 2 completed shifts: In: 5 [P.O.:2100; I.V.:15] Out: 3805 [Urine:3658; Drains:147] Medications Scheduled Scheduled Medications Medication Dose Route Frequency acetaminophen (TYLENOL) tablet 1,000 mg 1,000 mg oral Q6H GOPAL cloNIDine (CATAPRES) tablet 0.1 mg 0.1 mg oral BID enoxaparin (LOVENOX) syringe 30 mg 30 mg subcutaneous Daily-2100 famotidine (PEPCID) tablet 20 mg 20 mg oral BID fluticasone propionate (FLONASE) 50 mcg/actuation nasal spray 2 spray 2 spray each nostril Daily furosemide (LASIX) tablet 40 mg 40 mg oral Daily gabapentin (NEURONTIN) capsule 100 mg 100 mg oral TID insulin glargine (LANTUS, SEMGLEE) 100 unit/mL injection 15 Units 15 Units subcutaneous Nightly insulin lispro (HumaLOG, ADMELOG) 100 unit/mL injection 0-4 Units 0-4 Units subcutaneous Nightly insulin lispro (HumaLOG, ADMELOG) 100 unit/mL injection 0-5 Units 0-5 Units subcutaneous TID with meals insulin lispro (HumaLOG, ADMELOG) 100 unit/mL injection 6 Units 6 Units subcutaneous TID with meals methocarbamoL (ROBAXIN) tablet 500 mg 500 mg oral TID polyethylene glycol (MIRALAX) packet 17 g 17 g oral Daily senna-docusate (PERICOLACE) 8.6-50 mg per tablet 2 tablet 2 tablet oral BID simvastatin (ZOCOR) tablet 40 mg 40 mg oral Nightly sodium chloride 0.9% flush 0.5-20 mL 0.5-20 mL intra-catheter Q8H GOPAL sodium chloride 0.9% flush 0.5-20 mL 0.5-20 mL intra-catheter Q8H GOPAL As needed PRN Medications Medication Dose Route Frequency Last Admin albuterol HFA (PROVENTIL HFA,VENTOLIN HFA,PROAIR HFA) 90 mcg/actuation inhaler 2 puff 2 puff inhalation Q6H PRN (RT) bisacodyL (DULCOLAX) suppository 10 mg 10 mg rectal Daily PRN Carrier Fluids for Secondary Infusion - 0.9% Sodium Chloride 30 mL intravenous PRN Carrier Fluids for Secondary Infusion - 0.9% Sodium Chloride 30 mL intravenous PRN cyclobenzaprine (FLEXERIL) tablet 5 mg 5 mg oral TID PRN 5 mg at 11/28/23 0021 dextrose gel in packet 15 g 15 g oral Q15 Min PRN Or dextrose (D10W) 10% bolus 250 mL 250 mL intravenous Q15 Min PRN glucagon injection 1 mg 1 mg intramuscular Q30 Min PRN ondansetron ODT (ZOFRAN-ODT) disintegrating tablet 4 mg 4 mg oral Q6H PRN Or ondansetron (ZOFRAN) injection 4 mg 4 mg intravenous Q6H PRN oxyCODONE (ROXICODONE) tablet 5 mg 5 mg oral Q4H PRN 5 mg at 11/28/23 0605 sodium chloride 0.9% flush 0.5-20 mL 0.5-20 mL intra-catheter PRN sodium chloride 0.9% flush 0.5-20 mL 0.5-20 mL intra-catheter PRN Labs Lab Results Component Value Date SODIUM 143 11/27/2023 SODIUM 141 11/26/2023 SODIUM 141 11/25/2023 Lab Results Component Value Date GLUCOSE 159 11/28/2023 CALCIUM 9.1 11/27/2023 POTASSIUM 4.0 11/27/2023 CO2 26 11/27/2023 CHLORIDE 105 11/27/2023 BUNSER 24 11/27/2023 CREATININE 1.51 (H) 11/27/2023 Lab Results Component Value Date WBC 8.3 11/27/2023 WBC 8.6 11/26/2023 WBC 18.6 (H) 11/25/2023 HGB 10.2 (L) 11/27/2023 HGB 9.4 (L) 11/26/2023 HGB 10.9 (L) 11/25/2023 HCT 32.7 (L) 11/27/2023 HCT 29.2 (L) 11/26/2023 HCT 33.4 (L) 11/25/2023 LABPLAT 168 11/27/2023 LABPLAT 148 (L) 11/26/2023 LABPLAT 244 11/25/2023 Lab Results Component Value Date INR 1.07 11/24/2023 INR 1.70 (H) 11/14/2023 INR 1.0 01/17/2022 PT 12.2 11/24/2023 PT 19.4 (H) 11/14/2023 PT 11.3 01/17/2022 APTT 46 (H) 11/24/2023 APTT 78 (H) 11/14/2023 APTT 43 (H) 01/17/2022 No components found for: TROPONIN PT/OT Evaluation PT Recommendation/Plan: Inpatient Rehab Facility OT Recommendation: Long-Term Facility Assessment/Plan Hospital Day: 5 Criss Ly is a 73 y.o. year old female who presented with cervical myelopathy (especially R hand). 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 If youare unable to reach them, you may contact the residents as listed. If it is after 6pm or you are unable to reach the VIOLENT CRIMES DETECTIVE or resident team, please page the Neurosurgery Call Pager at [phone]. Note created by Karely Wilkes MD PhD on 11/28/2023 at 8:42 AM. Cosigned by Brennan Castillo MD at 11/28/2023 9:36 PM CDT * Charlene Krishnamurthy, PT - 11/27/2023 4:25 PM CDT Physical Therapy Physical Therapy Progress Note NOTE: This is a summary note of the winter components of the treatment session. For full details, review chart for all flowsheets documented on by this physical therapy clinician on this date. Vital signs documented in vital signs flowsheet. Care plan progress documented in Care Plan Activity. For questions, please review the treatment team and contact the PT or FIREWALL SECURITY ENGINEER currently assigned to this patient. If a physical therapy clinician is not assigned to this patient, please call [phone]. 11/27/23 7890 PT Last Visit Session Type Treatment PT Received On 11/27/23 Safe Environment Arm band checked;Patient found in supine;Session completed bedside;Gait belt utilized for all out of bed mobility Subjective Agreeable to Therapy Subjective Comment Stated she needed to go to the bathroom; states her pain elevated with mobility tasks, informed LU Ocampo of this Family/Caregiver Present No Current Functional Status PT Functional Mobility Interventions: patient educated in precautions and mobility within precautions Precautions Precautions Fall risk;Cervical spine Weight Bearing Restrictions No Braces/Orthoses Cervical collar (Hoopa J cervical collar on) Precaution Handout Issued No Activity Tolerance Endurance Tolerates 10 - 20 min activity with multiple rests Pain Assessment Pain Assessment 0-10 Pain Score 8 Pain Type Surgical pain Pain Interventions Repositioned;Elevated;RN Notified (LU Ocampo) Cognition Arousal/Alertness Alert;Appropriate responses to stimuli Attention Span Appears intact;Age appropriate Memory Appears intact Current communication Appears Intact Orientation Oriented X4 (person, place, time, situation) Following Commands Follows all commands and directions without difficulty Safety Judgment Good awareness of safety precautions Awareness of Errors Good awareness of errors made Insight Fully aware of deficits Problem Solving Able to problem solve independently Compliance/Behavior Easy to engage Perseveration Not present Bed Mobility Bed Mobility Yes Bed Mobility 1 Bed Mobility From 1 Supine Bed Mobility Type 1 To (HOB elevated, to her R) Bed Mobility to 1 Edge of bed;Short sit Level of Assistance 1 Moderate Assist;Moderate verbal cues;Moderate tactile cues Bed Mobility Comments 1 cues to perform components of task, assistance to get torso to vertical andbring LEs off bed surface Transfers Transfer Yes Transfer 1 Transfer From 1 Sit Transfer Type 1 To and from Transfer to 1 Stand Technique 1 Sit to stand;Stand to sit Transfer Device 1 Wheeled walker Transfer Level of Assistance 1 Moderate Assist;Moderate verbal cues;Moderate tactile cues Trials/Comments 1 cues to perform components of task, inadequate force production, lack of eccentric control to sit; performed task x2 Ambulation Functional Ambulation Category 1 Ambulation Yes Ambulation 1 Distance (ft) 1 10 + 20 (30) Surface 1 Level tile Device 1 Wheeled walker Assistance 1 Moderate Assist;Moderate verbal cues;Moderate tactile cues Gait: Requires assist with 1 Maintaining balance Gait: Requires verbal cues to 1 Use assistive device safely;Follow precautions/weight bearing status;Utilize appropriate gait sequencing;Improve upright posture;Pace activity Gait Deviations 1 Antalgic;Base of support - decreased;Loreta - decreased;Heel strike - decreased;Hip/knee flexion during swing phase - decreased;Posture - flexed;Stance time - decreased;Step length- decreased;Weight bearing through UE???s - increased Quality of Gait 1 very slow speed and step length, reciprocal gait pattern. Stairs Stairs No Basic Mobility - 6 Click How much difficulty does the patient have: Turning over in bed 2 How much difficulty does the patient currently have: Sitting down and standing up from a chair witharms? 2 How much difficulty does the patient have: Moving from lying on back to sitting on the side of the bed? 2 How much difficulty does the patient have: Moving to and from a bed to a chair including wheelchair? 2 How much help does the patient currently need: Walk in hospital room? 2 How much help from another person does the patient currently need: Climbing 3-5 steps with a railing? 1 Total 6 Click Score (range 6-24) 11 Score Interpretation 30.25 Safe Environment End of Therapy Session Safe Environment End of Therapy Session Patient left in recliner;Chair alarm in place and activated;RN notified;Call light within reach;Overbed table within reach;Bed in lowest position with wheels locked;Bed rails up per protocol Assessment Prognosis Good Problem List Gait deviations;Decreased strength;Decreased range of motion;Decreased endurance;Impaired balance;Decreased mobility;Decreased safety awareness;Obesity;Decreased skin integrity;Orthopedic restrictions;Pain;Postural deficit Barriers to Discharge Current Mobility Status;Inaccessible home environment;Home environment challenged;Decreased caregiver support Plan Plan Continue with current plan;If this is the last note, consider this the discharge summary Recommendation/Plan PT Recommendation/Plan Inpatient Rehab Facility Patient at high risk for Falls;Readmission;Injury due to decreased ability to care for self;Injury due to reduced functional status;Injury due to balance deficits;Prolonged dependence for self care tasks;Difficulty maintaining orthopedic restrictions;Unable to don/doff bracing Recommend Inpatient Rehab/Acute Rehab due to Not at baseline due to impaired ability to complete ADLs;Impaired ability to complete functional mobility;Likely to return to the community at discharge with support system in place;Requires greater than 25% physical assistance with most mobility tasks;Requires multiple therapy disciplines to address functional deficits;Patient and caregiver require specialized skilled training due to new level of function/diagnosis;Requires skilled therapy interventions to address neurological deficits PT Frequency during current admission 5-7x/wk Treatment/Interventions during current admission Balance Training;Bed mobility;Compensatory technique education;Endurance training;Functional activity;Functional transfer training;Gait training;Orthotic management;Parent/caregiver training and education;Positioning;Therapeutic activity;Transfer training PT Equipment Recommended Wheeled walker Progress during current admission Slow progress, decreased activity tolerance PT - Next Appointment 11/28/23 PT - OK to Discharge No (except to another facility) PT Evaluation Complete Yes Multi-Disciplinary Problems (from Physical Therapy) Active Problems Problem: Mobility Start Date: 11/26/23 Goal Start Date Expected End Date End Date LTG - Patient will ambulate household distance 11/26/23 02/11/24 -- Goal Details: 50' with wheeled walker, modified independent Goal Start Date Expected End Date End Date STG - Patient will propel the wheelchair 11/26/23 12/03/23 -- Goal Details: 50' with supervision, level surfaces Goal Start Date Expected End Date End Date STG - Patient will ambulate 11/26/23 12/03/23 -- Goal Details: 40' with wheeled walker, minimal assistance Problem: Transfers Start Date: 11/26/23 Goal Start Date Expected End Date End Date STG - Transfer from bed to chair 11/26/23 12/03/23 -- Goal Details: With wheeled walker, supervision Goal Start Date Expected End Date End Date STG - Patient to transfer to and from sit to supine 11/26/23 12/03/23 -- Goal Details: supervision Goal Start Date Expected End Date End Date STG - Patient will transfer sit to and from stand 11/26/23 12/03/23 -- Goal Details: With wheeled walker, supervision * Stan Johnson, OT - 11/27/2023 9:02 AM CDT Occupational Therapy Occupational Therapy Progress Note NOTE: This is a summary note of the winter components of the treatment session. For full details, review chart for all flowsheets documented on by this occupational therapy clinician on this date. Vitalsigns documented in vital signs flowsheet. Care plan progress documented in Care Plan Activity. For questions, please review the treatment team and contact the occupational therapist currently assigned to this patient. If an occupational therapist is not assigned to this patient, please call [phone]. 11/27/23 0902 General Session Type Treatment OT Received On 11/27/23 Safe Environment Arm band checked;Patient found in supine;Gait belt utilized for all out of bed mobility Subjective Agreeable to Therapy Family/Caregiver Present No Precautions Precautions Fall risk;Cervical spine Weight Bearing Restrictions No Braces/Orthoses Cervical collar (Hoopa J) Precaution Handout Issued No Precaution Comments Verbally reviewed precautions prior to mobility. Pt demonstrated and verbalizedunderstanding. Pain Assessment Pain Assessment 0-10 Pain Score 5 - Moderate pain Pain Location Back (Cervical) Pain Orientation Posterior Pain Interventions Repositioned;RN Notified (SEBASTIÁN Ocampo) Balance Balance Yes Dynamic Sitting Balance Dynamic Sitting-Balance Support No upper extremity supported Dynamic Sitting-Balance Lateral lean;Forward lean;Reaching for objects;Reaching across midline Dynamic Sitting-Sitting Surface Bed Dynamic Sitting-Level of Assistance Contact guard Dynamic Sitting-Comments CGA for balance Dynamic Standing Balance Dynamic Standing-Balance Support Bilateral upper extremity supported (on ww) Dynamic Standing-Balance Lateral lean;Forward lean;Reaching for objects;Reaching across midline Dynamic Standing-Standing Surface Floor Dynamic Standing-Level of Assistance Moderate assistance Dynamic Standing-Comments Mod A for balance and safety ADL ADLS (WDL) X Grooming Grooming: Where assessed Chair Grooming: Level of assistance Distant Supervision Grooming: Assistance with Safety (Sup for safety) Toileting Toileting: Where assessed (EOB to sim) Toileting: Level of assistance Maximum Assist Toileting: Assistance with Anterior;Posterior;Clothing management down;Clothing management up (Max for task) Bed Mobility Bed Mobility Yes Bed Mobility 1 Bed Mobility From 1 Supine Bed Mobility Type 1 To Bed Mobility to 1 Edge of bed Level of Assistance 1 Maximum Assist Bed Mobility Comments 1 Max A for trunk elevation and bringing hips to EOB. Transfers Transfer Yes Transfer 1 Transfer From 1 Sit Transfer Type 1 To and from Transfer to 1 Stand Technique 1 Stand to sit;Sit to stand Transfer Device 1 Wheeled walker Transfer Level of Assistance 1 Moderate Assist Trials/Comments 1 Mod A for balance and force production Toilet Transfers Toilet Transfer From Bed Toilet Transfer Type To Toilet Transfer to (Chair to sim) Toilet Transfer Technique Stand pivot Toilet Transfer: Equipment Wheeled walker Toilet Transfers Moderate assistance Toilet Transfers Comments Mod A for balance and force production. Cognition Overall Cognitive Status WFL Arousal/Alertness Alert;Appropriate responses to stimuli Attention Span Appears intact Memory Appears intact Current communication Appears Intact Orientation Oriented X4 (person, place, time, situation) Following Commands Follows all commands and directions without difficulty Safety Judgment Good awareness of safety precautions Awareness of Errors Good awareness of errors made Insight Fully aware of deficits Problem Solving Able to problem solve independently Compliance/Behavior Easy to engage Perseveration Not present Other Comments Comments Pt seen this date for treatment session focusing on functional transfer training and grooming tasks in preparation for self care tasks. Pt reports high pain levels this date, which limited mobility. RN (Damaris) aware. Pt would benefit from continued skilled therapy services to improve ADLind, balance, and safety. Daily Activity - 6 Clicks Putting on and taking off regular lower body clothing 2 Bathing 2 Toileting 2 Putting on and taking off upper body clothing 2 Personal Grooming 3 Eating Meals 3 Total Score (range 6-24) 14 Score Interpretation 33.39 Safe Environment End of Therapy Session Safe Environment End of Therapy Session Patient left supine in bed;Chair alarm in place and activated;RN notified;Call light within reach;Overbed table within reach Assessment Problem List Decreased endurance;Decreased balance;Decreased fine motor control;Decreased functional mobility;Decreased gross motor control;Decreased ADL independence;Decreased IADL independence;Decreased upper extremity strength Barriers to Discharge Current Mobility Status;Current ADL Status Barrier Comments Fall risk Plan Plan Continue with current plan;If this is the last note, consider this the discharge summary Recommendation/Plan OT Recommendation Long-Term Facility Patient at high risk for Falls;Readmission;Injury due to decreased ability to care for self;Injury due to reduced functional status;Injury due to balance deficits Recommend SNF due to Unable to safely care for self in the home;Risk of injury at home;Skilled therapy needed to address functional deficits;Skilled therapy needed to address care for self in the home OT Frequency during current admission 5-7x/wk Treatment/Interventions during current admission ADL/IADL retraining;Balance Training;Bed mobility;Endurance training;Functional activity;Functional mobility training;Functional transfer training OT Equipment Recommended Wheeled walker Progress during current admission Slow progress, decreased activity tolerance OT - Next Appointment 11/28/23 OT - OK to Discharge No Multi-Disciplinary Problems (from Occupational Therapy) Active Problems Problem: Dressings Lower Extremities Start Date: 11/26/23 Goal Start Date Expected End Date End Date STG - Patient to complete lower body dressing 11/26/23 12/03/23 -- Goal Details: Sup with AE PRN Problem: Grooming Start Date: 11/26/23 Goal Start Date Expected End Date End Date STG - Patient will complete grooming 11/26/23 12/03/23 -- Goal Details: Sup in unsupported sitting Problem: Toileting Start Date: 11/26/23 Goal Start Date Expected End Date End Date STG - Patient will complete toileting tasks with 11/26/23 12/03/23 -- Goal Details: Sup Problem: Transfers Start Date: 11/26/23 Goal Start Date Expected End Date End Date STG - Patient will perform toilet transfer 11/26/23 12/03/23 -- Goal Details: Sup to toilet in bathroom Problem: Precautions Start Date: 11/26/23 Goal Start Date Expected End Date End Date STG - Patient will demonstrate precautions consistently during ADL tasks/functional mobility. 11/26/23 12/03/23 -- Goal Details: Sup Problem: OT Misc Start Date: 11/26/23 Goal Start Date Expected End Date End Date OT LTG - Misc 1 11/26/23 12/10/23 -- Goal Details: Pt will be able to complete all ADLs with sup and AE PRN * Karely Wilkes MD PhD - 11/27/2023 7:57 AM CDT Neurosurgery Daily Progress Note 11/27/2023 Hospital Course 11/23 OR for C5-T2 PCDF. POC ok. Garcia replaced. 11/24 MAP goal liberalized, TTF. 11/25 muscle relaxers added. PT rec IPR. XR obtained. Subjective no complaints and pain well controlled Objective Physical Exam Awake, alert, regards, follows commands Oriented x3 PERRL, gaze conjugate, face symmetric BUE 4+ D 11/15 B/T 4- HG/IH BLE 4- HF 4+ KE/KF 4 DF/PF/EHL Incision c/d/I with aquacel Drain x1 holding suction Hoopa J collar in place Garcia in place Vitals 24hr min/max vitals: Temp Min: 36.3 ??C (97.3 ??F) Max: 36.9 ??C (98.4 ??F) Pulse Min: 62 Max: 72 Resp Min: 16 Max: 17 SpO2 Min: 93 % Max: 100 % MAP (mmHg) Min: 59 Max: 91 Intake and Output I/O last 2 completed shifts: In: - Out: 2410 [Urine:2225; Drains:185] Medications Scheduled Scheduled Medications Medication Dose Route Frequency acetaminophen (TYLENOL) tablet 1,000 mg 1,000 mg oral Q6H GOPAL cloNIDine (CATAPRES) tablet 0.1 mg 0.1 mg oral BID enoxaparin (LOVENOX) syringe 30 mg 30 mg subcutaneous Daily-2100 famotidine (PEPCID) tablet 20 mg 20 mg oral BID fluticasone propionate (FLONASE) 50 mcg/actuation nasal spray 2 spray 2 spray each nostril Daily gabapentin (NEURONTIN) capsule 100 mg 100 mg oral TID insulin glargine (LANTUS, SEMGLEE) 100 unit/mL injection 16 Units 0.15 Units/kg subcutaneous Nightly insulin lispro (HumaLOG, ADMELOG) 100 unit/mL injection 0-4 Units 0-4 Units subcutaneous Nightly insulin lispro (HumaLOG, ADMELOG) 100 unit/mL injection 0-5 Units 0-5 Units subcutaneous TID with meals insulin lispro (HumaLOG, ADMELOG) 100 unit/mL injection 6 Units 6 Units subcutaneous TID with meals methocarbamoL (ROBAXIN) tablet 500 mg 500 mg oral TID polyethylene glycol (MIRALAX) packet 17 g 17 g oral Daily senna-docusate (PERICOLACE) 8.6-50 mg per tablet 2 tablet 2 tablet oral BID simvastatin (ZOCOR) tablet 40 mg 40 mg oral Nightly sodium chloride 0.9% flush 0.5-20 mL 0.5-20 mL intra-catheter Q8H GOPAL sodium chloride 0.9% flush 0.5-20 mL 0.5-20 mL intra-catheter Q8H GOPAL As needed PRN Medications Medication Dose Route Frequency Last Admin albuterol HFA (PROVENTIL HFA,VENTOLIN HFA,PROAIR HFA) 90 mcg/actuation inhaler 2 puff 2 puff inhalation Q6H PRN (RT) bisacodyL (DULCOLAX) suppository 10 mg 10 mg rectal Daily PRN Carrier Fluids for Secondary Infusion - 0.9% Sodium Chloride 30 mL intravenous PRN Carrier Fluids for Secondary Infusion - 0.9% Sodium Chloride 30 mL intravenous PRN cyclobenzaprine (FLEXERIL) tablet 5 mg 5 mg oral TID PRN 5 mg at 11/26/232151 dextrose gel in packet 15 g 15 g oral Q15 Min PRN Or dextrose (D10W) 10% bolus 250 mL 250 mL intravenous Q15 Min PRN glucagon injection 1 mg 1 mg intramuscular Q30 Min PRN ondansetron ODT (ZOFRAN-ODT) disintegrating tablet 4 mg 4 mg oral Q6H PRN Or ondansetron (ZOFRAN) injection 4 mg 4 mg intravenous Q6H PRN oxyCODONE (ROXICODONE) tablet 5 mg 5 mg oral Q4H PRN 5 mg at 11/27/23 0514 sodium chloride 0.9% flush 0.5-20 mL 0.5-20 mL intra-catheter PRN sodium chloride 0.9% flush 0.5-20 mL 0.5-20 mL intra-catheter PRN Labs Lab Results Component Value Date SODIUM 141 11/26/2023 SODIUM 141 11/25/2023 SODIUM 142 11/24/2023 Lab Results Component Value Date GLUCOSE 198 11/27/2023 CALCIUM 8.6 11/26/2023 POTASSIUM 4.2 11/26/2023 CO2 25 11/26/2023 CHLORIDE 106 11/26/2023 BUNSER 25 11/26/2023 CREATININE 1.67 (H) 11/26/2023 Lab Results Component Value Date WBC 8.6 11/26/2023 WBC 18.6 (H) 11/25/2023 WBC 17.3 (H) 11/24/2023 HGB 9.4 (L) 11/26/2023 HGB 10.9 (L) 11/25/2023 HGB 11.5 (L) 11/24/2023 HCT 29.2 (L) 11/26/2023 HCT 33.4 (L) 11/25/2023 HCT 35.8 11/24/2023 LABPLAT 148 (L) 11/26/2023 LABPLAT 244 11/25/2023 LABPLAT 227 11/24/2023 Lab Results Component Value Date INR 1.07 11/24/2023 INR 1.70 (H) 11/14/2023 INR 1.0 01/17/2022 PT 12.2 11/24/2023 PT 19.4 (H) 11/14/2023 PT 11.3 01/17/2022 APTT 46 (H) 11/24/2023 APTT 78 (H) 11/14/2023 APTT 43 (H) 01/17/2022 No components found for: TROPONIN PT/OT Evaluation PT Recommendation/Plan: Inpatient Rehab Facility OT Recommendation: Long-Term Facility Assessment/Plan Hospital Day: 4 Criss Ly is a 73 y.o. year old female who presented with cervical myelopathy (especially R hand). 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 If youare unable to reach them, you may contact the residents as listed. If it is after 6pm or you are unable to reach the VIOLENT CRIMES DETECTIVE or resident team, please page the Neurosurgery Call Pager at [phone]. Note created by Karely Wilkes MD PhD on 11/27/2023 at 7:57 AM. Cosigned by Brennan Castillo MD at 11/27/2023 12:08 PM CDT * Charlene Krishnamurthy, PT - 11/26/2023 2:55 PM CDT Physical Therapy Physical Therapy Evaluation Note NOTE: This is a summary note of the winter components of the evaluation session. For full details, review chart for all flowsheets documented on by this physical therapy clinician on this date. Vital signs are documented in the vital signs flowsheet. For questions, please review the treatment team and contact the PT or FIREWALL SECURITY ENGINEER currently assigned to this patient. If a physical therapy clinician is not assigned to this patient, please call [phone]. 11/26/23 3111 General Chart Reviewed Yes Session Type Evaluation PT Received On 11/26/23 Safe Environment Arm band checked;Patient found sitting in chair;Session completed bedside;Gait belt utilized for all out of bed mobility Subjective Agreeable to Therapy Subjective Comment states she does not walk, can take a few steps to transfer, primarily uses a WC at home, states she has a lift chair at home Family/Caregiver Present No Physical Therapy-Patient Goal States she wants to be able to go home Current Functional Status PT Functional Mobility Interventions: patient educated in precautions and mobility within precautions Precautions Precautions Fall risk;Cervical spine Weight Bearing Restrictions No Braces/Orthoses Cervical collar (Hoopa J cervical collar on) Precaution Handout Issued No Home Living Type of Home House Home Layout One level;Performs ADLs on one level;Able to live on main level with bedroom/bathroom Home Access Ramped entrance Home Mobility Equipment-Available 4-Wheeled walker;Wheelchair-manual;Lift Chair Home Mobility Equipment-Currently Using 4-Wheeled walker;Lift Chair;Wheelchair-manual Prior Function Level of [place] Independent with ADLs;Independent with wheelchair;Independent functional transfers Lives With Alone Receives Help From Spouse/Significant other (very limited assistance from a family member) Fall within the last 6 months No Activity Tolerance Endurance Tolerates 30 min activity with multiple rests Pain Assessment Pain Assessment 0-10 Pain Score 5 - Moderate pain Pain Interventions Repositioned;Elevated;RN Notified (RN- Graciela) Cognition Arousal/Alertness Alert;Appropriate responses to stimuli Attention Span Appears intact;Age appropriate Memory Appears intact Current communication Appears Intact Orientation Oriented X4 (person, place, time, situation) Following Commands Follows all commands and directions without difficulty Safety Judgment Good awareness of safety precautions Awareness of Errors Good awareness of errors made Insight Fully aware of deficits Problem Solving Assistance required to identify errors made;Assistance required to generate solutions;Assistance required to implement solutions Compliance/Behavior Easy to engage Perseveration Not present Sensation Light Touch Partial deficits in the LLE;Partial deficits in the RLE Numbness/Tingling Yes (in feet and hands) Endurance Deficit Endurance Deficit Yes (JHONATHAN- hard) Balance Balance Yes Static Sitting Balance Static Sitting-Balance Support No upper extremity supported;Feet supported Static Sitting-Sitting Surface Bed;Chair Static Sitting-Level of Assistance Close supervision Static Standing Balance Static Standing-Balance Support Bilateral upper extremity supported (B hands on handles of wheeled walker) Static Standing-Standing Surface Floor Static Standing-Level of Assistance Minimum assistance Bed Mobility Bed Mobility Yes Bed Mobility 2 Bed Mobility From 2 Edge of bed;Short sit Bed Mobility Type 2 To Bed Mobility to 2 Side lying-left;Supine (via log rolling, bed flat) Level of Assistance 2 Maximum Assist;Maximal verbal cues;Maximal tactile cues Bed Mobility Comments 2 cues to perform components of task, assistance to bring LEs onto bed surface and control descent/position to the bed Transfers Transfer Yes Transfer 1 Transfer From 1 Sit Transfer Type 1 To and from Transfer to 1 Stand Technique 1 Sit to stand;Stand to sit Transfer Device 1 Wheeled walker Transfer Level of Assistance 1 Maximum Assist;Maximal verbal cues;Maximal tactile cues Trials/Comments 1 Cues to perform components of task; inadequate force production; delayed extension of hips/knees upon standing, unsteady upon standing; lack of eccentric control to sit Transfers 2 Transfer From 2 Chair with arms Transfer Type 2 To Transfer to 2 Bed Technique 2 Stand and step Transfer Device 2 Wheeled walker Transfer Level of Assistance 2 Moderate Assist;Moderate verbal cues;Moderate tactile cues Trials/Comments 2 cues to perform components of task, assistance to maneuver wheeled walker during task, increased time to perform task Ambulation Functional Ambulation Category 0 Ambulation No Ambulation 1 Ambulation Comments 1 unable to ambulate distance at this sufficient to perform 10 MWT Stairs Stairs No RUE Assessment RUE Assessment WFL LUE Assessment LUE Assessment WFL RLE Assessment RLE Assessment (LEs are very stiff; R quadriceps are weaker than L LE) Strength RLE R Knee Extension 4-/5 LLE Assessment LLE Assessment WFL LLE Comments (very stiff L LE) Equipment Use Equipment Use Comments gait belt on for all mobility task Basic Mobility - 6 Click How much difficulty does the patient have: Turning over in bed 2 How much difficulty does the patient currently have: Sitting down and standing up from a chair witharms? 2 How much difficulty does the patient have: Moving from lying on back to sitting on the side of the bed? 2 How much difficulty does the patient have: Moving to and from a bed to a chair including wheelchair? 2 How much help does the patient currently need: Walk in hospital room? 1 How much help from another person does the patient currently need: Climbing 3-5 steps with a railing? 1 Total 6 Click Score (range 6-24) 10 Score Interpretation 28.13 Safe Environment End of Therapy Session Safe Environment End of Therapy Session Patient left supine in bed;Bed alarm in place and activated;RN notified;Call light within reach;Overbed table within reach;Bed in lowest position with wheels locked;Bed rails up per protocol Assessment Prognosis Good Problem List Gait deviations;Decreased strength;Decreased range of motion;Decreased endurance;Impaired balance;Decreased mobility;Obesity;Decreased skin integrity;Orthopedic restrictions;Pain;Edema;Postural deficit Problem List Comments PT Diagnosis: patient with C7-T1 spondylolisthesis with myelopathy/radiculopathy/instability, adjacent segment level disease; C5-T2 posterior-lateral arthrodesis, B segmental C5-C6 lateral mass fixation and B T1- T2 pedicle screw fixation, C7-T1 laminectomy presents with deficits in bed mobility, transfers, mobility/ambulation due to impairments in pain, ROM/strength, balance, dependent mobility without use of mobility device. These deficits prevent full participation in home and community mobility for this patient. Barriers to Discharge Current Mobility Status;Inaccessible home environment;Home environment challenged;Decreased caregiver support Plan Plan Plan of care initiated;If this is the last note, consider this the discharge summary Recommendation/Plan PT Recommendation/Plan Inpatient Rehab Facility Patient at high risk for Falls;Readmission;Injury due to decreased ability to care for self;Injury due to reduced functional status;Injury due to balance deficits;Prolonged dependence for self care tasks;Developing secondary complications: poor health management;Difficulty maintaining orthopedic res trictions;Unable to don/doff bracing Recommend Inpatient Rehab/Acute Rehab due to Not at baseline due to impaired ability to complete ADLs;Impaired ability to complete functional mobility;Likely to return to the community at discharge with support system in place;Requires greater than 25% physical assistance with most mobility tasks;Requires multiple therapy disciplines to address functional deficits;Patient and caregiver require specialized skilled training due to new level of function/diagnosis;Requires skilled therapy interventions to address neurological deficits PT Frequency during current admission 5-7x/wk Treatment/Interventions during current admission Balance Training;Bed mobility;Compensatory technique education;Endurance training;Functional activity;Functional transfer training;Gait training;Parent/caregiver training and education;Orthotic management;Positioning;Range of motion;Therapeutic activi ty;Transfer training PT Equipment Recommended (deferred at this time; to be determined at next level of care) PT - Next Appointment 11/26/23 PT - OK to Discharge No (except to another facility) PT Evaluation Complete Yes Multi-Disciplinary Problems (from Physical Therapy) Active Problems Problem: Mobility Start Date: 11/26/23 Goal Start Date Expected End Date End Date LTG - Patient will ambulate household distance 11/26/23 02/11/24 -- Goal Details: 50' with wheeled walker, modified independent Goal Start Date Expected End Date End Date STG - Patient will propel the wheelchair 11/26/23 12/03/23 -- Goal Details: 50' with supervision, level surfaces Goal Start Date Expected End Date End Date STG - Patient will ambulate 11/26/23 12/03/23 -- Goal Details: 10' with wheeled walker, minimal assistance Problem: Transfers Start Date: 11/26/23 Goal Start Date Expected End Date End Date STG - Transfer from bed to chair 11/26/23 12/03/23 -- Goal Details: With wheeled walker, supervision Goal Start Date Expected End Date End Date STG - Patient to transfer to and from sit to supine 11/26/23 12/03/23 -- Goal Details: supervision Goal Start Date Expected End Date End Date STG - Patient will transfer sit to and from stand 11/26/23 12/03/23 -- Goal Details: With wheeled walker, supervision * Charlene Krishnamurthy, PT - 11/26/2023 11:33 AM CDT Physical Therapy 11/26/23 1133 PT Last Visit PT Missed Visit Reason Unavailable;With other staff/receiving another service Additional Pertinent History Attempted to see patient, a [facility] Physician was in theroom talking to the patient, will see another time. * Stan Johnson, OT - 11/26/2023 7:40 AM CDT Occupational Therapy Occupational Therapy Evaluation Note NOTE: This is a summary note of the winter components of the evaluation session. For full details, review chart for all flowsheets documented on by this occupational therapy clinician on this date. Vital signs are documented in vital signs flowsheet. For questions, please review the treatment team and contact the occupational therapist currently assigned to this patient. If an occupational therapist is not assigned to this patient, please call [phone]. 11/26/23 0740 General Chart Reviewed Yes Session Type Evaluation OT Received On 11/26/23 Safe Environment Arm band checked;Patient found in supine;Gait belt utilized for all out of bed mobility Subjective Agreeable to Therapy Family/Caregiver Present No Precautions Precautions Fall risk;Spinal/Back Braces/Orthoses Cervical collar (Marcia Blandon donned for entire session) Precaution Handout Issued No Precaution Comments Verbally reviewed precautions prior to mobility. Pt demonstrated and verbalizedunderstanding. Home Living Type of Home House Home Layout One level Home Access Ramped entrance Bathroom Shower/Tub Tub/shower unit Bathroom Toilet Raised Bathroom Equipment Grab bars around toilet;Grab bars in shower/tub;Tub transfer bench Bathroom Accessibility Accessible Home Mobility Equipment-Available Wheelchair-manual;Wheeled walker Home Mobility Equipment-Currently Using Wheelchair-manual Additional Comments Pt reports using manual w/c for all mobility at baseline. 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 within the last 6 months No ADL ADLS (WDL) X Grooming Grooming: Where assessed Sitting at sink;Wheelchair Grooming: Level of assistance Minimum Assist Grooming: Assistance with Manipulation of containers (Min for task, Sup for balance) Toileting Toileting: Where assessed Wheelchair Toileting: Level of assistance Maximum Assist Toileting: Assistance with Posterior;Clothing management up;Clothing management down;Anterior (Max for task) Room Mobility Room Mobility: Where assessed Pt's room, to/from sink in bathroom Health Management: Equipment Wheelchair Room Mobility: Level of Assistance Minimum Assist Room Mobility comment Min A for force production and balance Toilet Transfers Toilet Transfer From Bed Toilet Transfer Type To and from Toilet Transfer to (Wheelchair to sim) Toilet Transfer Technique Stand pivot Toilet Transfer: Equipment Wheeled walker Toilet Transfers Moderate assistance Toilet Transfers Comments Mod A for force production and balance. Pain Assessment Pain Assessment 0-10 Pain Score 5 - Moderate pain Pain Location Incision Pain Orientation Posterior Pain Interventions Repositioned;RN Notified (RN Graciela) Cognition Overall Cognitive Status WFL Arousal/Alertness Alert;Appropriate responses to stimuli Attention Span Appears intact Memory Appears intact Current communication Appears Intact Orientation Oriented X4 (person, place, time, situation) Following Commands Follows all commands and directions without difficulty Safety Judgment Good awareness of safety precautions Awareness of Errors Good awareness of errors made Insight Fully aware of deficits Problem Solving Able to problem solve independently Compliance/Behavior Easy to engage Perseveration Not present Cognitive Tests Cognitive Tests Yes Short Blessed Test What year is it now? 0 What month is it now? 0 Repeat this name and address after me David Braden [address] [place] [address] Without looking at the clock, tell me what time it is 0 Count aloud backwards from 20-1 2 Say the months of the year backwards in reverse order 0 Repeat the name and address I asked you to remember 2 Short Blessed Total Score 4 Short Blessed Comments WFL Sensation Light Touch WFL Numbness/Tingling Yes (in BL hands and feet) Hand Preference Hand Preference Right Hand Function Coordination Functional Gross Grasp Functional Balance Tests Balance Tests Yes Tinetti Sitting Balance 1 Arises 0 Attempts to Arise 0 Immediate Standing Balance (First 5 Seconds) 0 Standing Balance 0 Nudged 0 Eyes Closed 0 Turned 360 Degrees: Steadiness 0 Turned 360 Degrees: Continuity of Steps 0 Sitting Down 1 Balance Score 2 Balance Balance Yes Dynamic Sitting Balance Dynamic Sitting-Balance Support No upper extremity supported Dynamic Sitting-Balance Lateral lean;Forward lean;Reaching for objects;Reaching across midline Dynamic Sitting-Sitting Surface Bed Dynamic Sitting-Level of Assistance Contact guard Dynamic Sitting-Comments CGA for balance and safety Dynamic Standing Balance Dynamic Standing-Balance Support Bilateral upper extremity supported (on ww) Dynamic Standing-Balance Lateral lean;Forward lean;Reaching for objects;Reaching across midline Dynamic Standing-Standing Surface Floor Dynamic Standing-Level of Assistance Moderate assistance Dynamic Standing-Comments Mod A for balance and safety during simulated toilet transfer Bed Mobility Bed Mobility Yes Bed Mobility 1 Bed Mobility From 1 Supine Bed Mobility Type 1 To Bed Mobility to 1 Edge of bed Level of Assistance 1 Moderate Assist Bed Mobility Comments 1 Mod A for trunk elevatin and bringing hips to EOB Transfers Transfer Yes Transfer 1 Transfer From 1 Sit Transfer Type 1 To and from Transfer to 1 Stand Technique 1 Sit to stand;Stand to sit Transfer Device 1 Wheeled walker Transfer Level of Assistance 1 Moderate Assist Trials/Comments 1 Mod A for balance and force production RUE Assessment RUE Assessment X RUE Comments Pt limited by pain this date LUE Assessment LUE Assessment X LUE Comments Pt limited by pain this date Other Comments Comments Pt seen this date for initial OT evaluation. Pt reports having little to no help at home, stating her sister can check in on her a few times a week, but not everyday . Pt also reports usinga wheelchair for all mobility prior to surgery due to not walking too good . Discussed d/c rec of SNF in order to facilitate safe return to home. Pt was in agreement with d/c rec and OT POC. Pt would benefit from continued skilled OT services to improve ADL ind, balance, and strength. Daily Activity - 6 Clicks Putting on and taking off regular lower body clothing 2 Bathing 2 Toileting 2 Putting on and taking off upper body clothing 2 Personal Grooming 3 Eating Meals 3 Total Score (range 6-24) 14 Score Interpretation 33.39 Safe Environment End of Therapy Session Safe Environment End of Therapy Session RN notified;Call light within reach;Overbed table within reach;Patient left in recliner;Chair alarm in place and activated Assessment Problem List Decreased endurance;Decreased balance;Decreased fine motor control;Decreased functional mobility;Decreased gross motor control;Decreased ADL independence;Decreased IADL independence;Decreased upper extremity strength Barriers to Discharge Current Mobility Status;Current ADL Status Barrier Comments Fall risk Plan Plan Plan of care initiated;If this is the last note, consider this the discharge summary Recommendation/Plan OT Recommendation Long-Term Facility Patient at high risk for Falls;Readmission;Injury due to decreased ability to care for self;Injury due to reduced functional status;Injury due to balance deficits Recommend SNF due to Unable to safely care for self in the home;Risk of injury at home;Skilled therapy needed to address care for self in the home OT Frequency during current admission 5-7x/wk Treatment/Interventions during current admission ADL/IADL retraining;Balance Training;Bed mobility;Endurance training;Functional activity;Functional mobility training;Functional transfer training OT Equipment Recommended Wheeled walker OT - Next Appointment 11/27/23 OT - OK to Discharge No OT Evaluation Complete Yes Multi-Disciplinary Problems (from Occupational Therapy) Active Problems Problem: Dressings Lower Extremities Start Date: 11/26/23 Goal Start Date Expected End Date End Date STG - Patient to complete lower body dressing 11/26/23 12/03/23 -- Goal Details: Sup with AE PRN Problem: Grooming Start Date: 11/26/23 Goal Start Date Expected End Date End Date STG - Patient will complete grooming 11/26/23 12/03/23 -- Goal Details: Sup in unsupported sitting Problem: Toileting Start Date: 11/26/23 Goal Start Date Expected End Date End Date STG - Patient will complete toileting tasks with 11/26/23 12/03/23 -- Goal Details: Sup Problem: Transfers Start Date: 11/26/23 Goal Start Date Expected End Date End Date STG - Patient will perform toilet transfer 11/26/23 12/03/23 -- Goal Details: Sup to toilet in bathroom Problem: Precautions Start Date: 11/26/23 Goal Start Date Expected End Date End Date STG - Patient will demonstrate precautions consistently during ADL tasks/functional mobility. 11/26/23 12/03/23 -- Goal Details: Sup Problem: OT Misc Start Date: 11/26/23 Goal Start Date Expected End Date End Date OT LTG - Misc 1 11/26/23 12/10/23 -- Goal Details: Pt will be able to complete all ADLs with sup and AE PRN * Karely Wilkes MD PhD - 11/26/2023 5:27 AM CDT Neurosurgery Daily Progress Note 11/26/2023 Hospital Course 11/23 OR for C5-T2 PCDF. POC ok. Garcia replaced. 11/24 MAP goal liberalized, TTF. Subjective no complaints and pain well controlled Objective Physical Exam Awake, alert, regards, follows commands Oriented x3 PERRL, gaze conjugate, face symmetric BUE 4+ D 11/15 B/T 4- HG/IH BLE 4- HF 4+ KE/KF 4 DF/PF/EHL Incision c/d/I with aquacel Drain x1 holding suction Hoopa J collar in place Garcia in place Vitals 24hr min/max vitals: Temp Min: 36.3 ??C (97.3 ??F) Max: 36.8 ??C (98.2 ??F) Pulse Min: 62 Max: 72 Resp Min: 8 Max: 17 SpO2 Min: 93 % Max: 100 % MAP (mmHg) Min: 52 Max: 91 Intake and Output I/O last 2 completed shifts: In: 267.5 [I.V.:267.5] Out: 980 [Urine:800; Drains:180] Medications Scheduled Scheduled Medications Medication Dose Route Frequency acetaminophen (TYLENOL) tablet 1,000 mg 1,000 mg oral Q6H GOPAL cloNIDine (CATAPRES) tablet 0.1 mg 0.1 mg oral BID enoxaparin (LOVENOX) syringe 30 mg 30 mg subcutaneous Daily-2099 famotidine (PEPCID) tablet 20 mg 20 mg oral BID fluticasone propionate (FLONASE) 50 mcg/actuation nasal spray 2 spray 2 spray each nostril Daily gabapentin (NEURONTIN) capsule 100 mg 100 mg oral TID insulin glargine (LANTUS, SEMGLEE) 100 unit/mL injection 16 Units 0.15 Units/kg subcutaneous Nightly insulin lispro (HumaLOG, ADMELOG) 100 unit/mL injection 0-4 Units 0-4 Units subcutaneous Nightly insulin lispro (HumaLOG, ADMELOG) 100 unit/mL injection 0-5 Units 0-5 Units subcutaneous TID with meals insulin lispro (HumaLOG, ADMELOG) 100 unit/mL injection 5 Units 0.05 Units/kg subcutaneous TID withmeals methocarbamoL (ROBAXIN) tablet 500 mg 500 mg oral TID polyethylene glycol (MIRALAX) packet 17 g 17 g oral Daily senna-docusate (PERICOLACE) 8.6-50 mg per tablet 2 tablet 2 tablet oral BID simvastatin (ZOCOR) tablet 40 mg 40 mg oral Nightly sodium chloride 0.9% flush 0.5-20 mL 0.5-20 mL intra-catheter Q8H GOPAL sodium chloride 0.9% flush 0.5-20 mL 0.5-20 mL intra-catheter Q8H GOPAL As needed PRN Medications Medication Dose Route Frequency Last Admin albuterol HFA (PROVENTIL HFA,VENTOLIN HFA,PROAIR HFA) 90 mcg/actuation inhaler 2 puff 2 puff inhalation Q6H PRN (RT) bisacodyL (DULCOLAX) suppository 10 mg 10 mg rectal Daily PRN Carrier Fluids for Secondary Infusion - 0.9% Sodium Chloride 30 mL intravenous PRN Carrier Fluids for Secondary Infusion - 0.9% Sodium Chloride 30 mL intravenous PRN cyclobenzaprine (FLEXERIL) tablet 5 mg 5 mg oral TID PRN 5 mg at 11/26/23 1226 dextrose gel in packet 15 g 15 g oral Q15 Min PRN Or dextrose (D10W) 10% bolus 250 mL 250 mL intravenous Q15 Min PRN glucagon injection 1 mg 1 mg intramuscular Q30 Min PRN ondansetron ODT (ZOFRAN-ODT) disintegrating tablet 4 mg 4 mg oral Q6H PRN Or ondansetron (ZOFRAN) injection 4 mg 4 mg intravenous Q6H PRN oxyCODONE (ROXICODONE) tablet 5 mg 5 mg oral Q4H PRN 5 mg at 11/26/23 0950 sodium chloride 0.9% flush 0.5-20 mL 0.5-20 mL intra-catheter PRN sodium chloride 0.9% flush 0.5-20 mL 0.5-20 mL intra-catheter PRN Labs Lab Results Component Value Date SODIUM 141 11/25/2023 SODIUM 142 11/24/2023 SODIUM 140 11/14/2023 Lab Results Component Value Date GLUCOSE 169 11/26/2023 CALCIUM 8.5 11/25/2023 POTASSIUM 4.3 11/25/2023 CO2 26 11/25/2023 CHLORIDE 106 11/25/2023 BUNSER 16 11/25/2023 CREATININE 1.28 (H) 11/25/2023 Lab Results Component Value Date WBC 18.6 (H) 11/25/2023 WBC 17.3 (H) 11/24/2023 WBC 9.3 11/14/2023 HGB 10.9 (L) 11/25/2023 HGB 11.5 (L) 11/24/2023 HGB 9.6 (L) 11/24/2023 HCT 33.4 (L) 11/25/2023 HCT 35.8 11/24/2023 HCT 29.0 (L) 11/24/2023 LABPLAT 244 11/25/2023 LABPLAT 227 11/24/2023 LABPLAT 219 11/14/2023 Lab Results Component Value Date INR 1.07 11/24/2023 INR 1.70 (H) 11/14/2023 INR 1.0 01/17/2022 PT 12.2 11/24/2023 PT 19.4 (H) 11/14/2023 PT 11.3 01/17/2022 APTT 46 (H) 11/24/2023 APTT 78 (H) 11/14/2023 APTT 43 (H) 01/17/2022 No components found for: TROPONIN PT/OT Evaluation OT Recommendation: Long-Term Facility Assessment/Plan Hospital Day: 3 Criss Ly is a 73 y.o. year old female who presented with cervical myelopathy (especially R hand). 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 If youare unable to reach them, you may contact the residents as listed. If it is after 6pm or you are unable to reach the [facility] or resident team, please page the Neurosurgery Call Pager at [phone]. Note created by Karely Wilkes MD PhD on 11/26/2023 at 1:27 PM. Cosigned by Brennan Castillo MD at 11/26/2023 6:23 PM CDT * Rupesh Reza MD - 11/25/2023 12:53 PM CDT Neurosurgery Brief Update Note: Went to bedside to re-examine the patient after MAP liberalization to normotension On exam, Awake, alert, regards, follows commands Oriented x3 PERRL, gaze conjugate, face symmetric BUE 4+ D 5/5 B/T 4 HG/IH BLE 4 HF 4+ KE/KF 4 DF/PF/EHL Drain x1 holding suction Hoopa J collar on place Inicision dressed, c/d/I Plan, Given stable exam with MAP goal liberalized, we will plan to liberalize to Q4 neurologic checks. [place] [id number] Spine floor Rupesh Reza MD * Karely Wilkes MD PhD - 11/25/2023 6:34 AM CDT Neurosurgery Daily Progress Note 11/25/2023 Hospital Course 11/23 OR for C5-T2 PCDF. POC ok. Garcia replaced. Subjective no complaints and pain well controlled Objective Physical Exam Awake, alert, regards, follows commands Oriented x3 PERRL, gaze conjugate, face symmetric BUE 4+ D 5/5 B/T 4- HG/IH BLE 4- HF 4+ KE/KF 4 DF/PF/EHL Incision c/d/I with aquacel Drain x1 holding suction [place]ner collar in place Garcia in place Vitals 24hr min/max vitals: Temp Min: 36 ??C (96.8 ??F) Max: 36.4 ??C (97.5 ??F) Pulse Min: 48 Max: 98 Resp Min: 7 Max: 24 SpO2 Min: 90 % Max: 100 % MAP (mmHg) Min: 83 Max: 129 Intake and Output I/O last 2 completed shifts: In: 2539.5 [I.V.:1624.5; Blood:350; IV Piggyback:565] Out: 1230 [Urine:700; Drains:30; Blood:500] Medications Scheduled Scheduled Medications Medication Dose Route Frequency cloNIDine (CATAPRES) tablet 0.1 mg 0.1 mg oral BID famotidine (PEPCID) tablet 20 mg 20 mg oral BID gabapentin (NEURONTIN) capsule 100 mg 100 mg oral TID As needed PRN Medications Medication Dose Route Frequency Last Admin dextrose gel in packet 15 g 15 g oral Q15 Min PRN Or dextrose (D10W) 10% bolus 250 mL 250 mL intravenous Q15 Min PRN glucagon injection 1 mg 1 mg intramuscular Q30 Min PRN HYDROmorphone (DILAUDID) injection 0.2 mg 0.2 mg intravenous Q10 Min PRN 0.2 mg at 11/25/23 0615 insulin regular bolus from bag 4-10 Units 4-10 Units intravenous PRN And insulin regular bolus from bag 4-6 Units 4-6 Units intravenous Q1H PRN oxyCODONE (ROXICODONE) tablet 5 mg 5 mg oral Q4H PRN Labs Lab Results Component Value Date SODIUM 141 11/25/2023 SODIUM 142 11/24/2023 SODIUM 140 11/14/2023 Lab Results Component Value Date GLUCOSE 128 11/25/2023 CALCIUM 8.5 11/25/2023 POTASSIUM 4.3 11/25/2023 CO2 26 11/25/2023 CHLORIDE 106 11/25/2023 BUNSER 16 11/25/2023 CREATININE 1.28 (H) 11/25/2023 Lab Results Component Value Date WBC 18.6 (H) 11/25/2023 WBC 17.3 (H) 11/24/2023 WBC 9.3 11/14/2023 HGB 10.9 (L) 11/25/2023 HGB 11.5 (L) 11/24/2023 HGB 9.6 (L) 11/24/2023 HCT 33.4 (L) 11/25/2023 HCT 35.8 11/24/2023 HCT 29.0 (L) 11/24/2023 LABPLAT 244 11/25/2023 LABPLAT 227 11/24/2023 LABPLAT 219 11/14/2023 Lab Results Component Value Date INR 1.07 11/24/2023 INR 1.70 (H) 11/14/2023 INR 1.0 01/17/2022 PT 12.2 11/24/2023 PT 19.4 (H) 11/14/2023 PT 11.3 01/17/2022 APTT 46 (H) 11/24/2023 APTT 78 (H) 11/14/2023 APTT 43 (H) 01/17/2022 No components found for: TROPONIN PT/OT Evaluation Assessment/Plan Hospital Day: 2 Criss Ly is a 73 y.o. year old female who presented with cervical myelopathy (especially R hand). 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 If youare unable to reach them, you may contact the residents as listed. If it is after 6pm or you are unable to reach the [facility] or resident team, please page the Neurosurgery Call Pager at [phone]. Note created by Karely Wilkes MD PhD on 11/25/2023 at 6:34 AM. Cosigned by Brennan Castillo MD at 11/25/2023 8:21 AM CDT * Mohit Melton MD - 11/25/2023 4:36 AM CDT Neurosurgery Post Op Check Note Surgeon: Dr. Castillo Procedure: C5-T2 PSF with C7-T1 decompression and foraminotomies Exam: Opens eyes to voice, regards, follows commands Oriented x3 PERRL, gaze conjugate, face symmetric BUE >4/5 throughout BLE >4/5 throughout Incision c/d/I with aquacel Drain x1 holding suction Sumner collar in place Garcia in place If there are any issues or questions, please use the Neurosurgery Call pager at [phone] Mohit Abel MD * Karely Wilkes MD PhD - 11/24/2023 5:54 PM CDT Neurosurgery Immediate Post Op PACU/ICU Note Surgeon: Dr. Castillo Procedure: C5-T2 PCDF Exam: Recently extubated Opens eyes to voice, regards, follows commands Oriented to self PERRL, gaze conjugate, face symmetric BUE >3/5 throughout BLE >3/5 throughout Incision c/d/I with aquacel Drain x1 holding suction Sumner collar in place Plan: Admit/transfer to ICU Diet: Advance as tolerated Antibiotics: Ancef & Vancomycin x 24hrs Activity Restrictions: cervical collar at all times Imaging required: Cervical Spine Xrays MAP >100 Glucose <120 Hgb >10, Platelets >100 Void check by midnight If there are any issues or questions, please page Karely Wilkes MD PhD at [phone]. If itis after 6pm, please use the Neurosurgery Call pager at [phone] Karely Wilkes MD PhD * Karely Wilkes MD PhD - 11/24/2023 12:23 PM CDT Neurosurgery brief note - preop exam Patient has held eliquis and ASA as instructed. No new complaints. Exam OE spont, R, FC Ox3 PERRL, EOMI, F=, TML BUE 4+ D 5/5 B/T 4- HG/IH BLE 4- HF 4+ KE/KF 4 DF/PF/EHL Prior anterior incision well healed NAD NWB RRR Ab soft and non-tender documented in this encounter H&P Notes * Karely Wilkes MD PhD - 11/24/2023 11:41 AM CDT I have reviewed the H&P, examined the patient, and endorse the findings as written. Plan of Care : Based on the above findings, I consider Criss Ly to be an acceptable risk for : Procedure(s): FUSION CERVICAL/THORACIC - POSTERIOR WITH INSTRUMENTATION C6-T2 posterior spinal fusion with a C7-T1 decompression and bilateral foraminotomies SPINAL CORD MONITORING FORAMINOTOMY CERVICAL - POSTERIOR C6-T2 posterior spinal fusion with a C7-T1 decompression and bilateral foraminotomies Cosigned by Brennan Castillo MD at 11/24/2023 11:53 AM CDT Source Note - Markus Cabezas NP - 11/14/2023 10:33 AM CDT Images from the original note were not included. [facility] Preoperative [facility] Planning Preoperative Evaluation Record Evaluation type/location: CPAP [facility] Planned procedure site: 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 female FUSION CERVICAL/THORACIC - POSTERIOR WITH INSTRUMENTATION C6-T2 posterior spinal fusion with a C7-T1 decompression and bilateral foraminotomies SPINAL CORD MONITORING FORAMINOTOMY CERVICAL - POSTERIOR C6-T2 posterior spinal fusion with a C7-T1 decompression and bilateral foraminotomies (Bilateral: Spine Cervical) Pre-Op Diagnosis Codes: * Cervicalgia [M54.2] HISTORY HPI 73 year old female being evaluated for cervical thoracic infusion C6- T2 posterior spinal fusion with C7-T1 decompression and bilateral foraminotomies. PMHx HTN, HLD, DVT in 2021, Past Medical History Information obtained from: patient. Information obtained during: In Person Neurological + Psychiatric history - anxiety Pertinent negatives: seizures; CVA/stroke; TIA; CEA; ICA stenosis and carotid artery stent Cardiovascular + Hypertension + Hyperlipidemia (On statin) + DVT/PE (Provoked by surgery in 2021- Chronic eliquis since, never evaluated by heme managed by PCP) Pertinent negatives: CAD ; PA ; CABG ; systolic/diastolic dysfunction w/o CHF ; valvular heart disease; valve replacement; atrial fibrillation; arrhythmia; pacemaker/ICD; PVD; negative for CHF; drug-eluting stent(s); bare metal stent(s); unknown stent(s) type and coronary angioplasty Respiratory + Asthma (uses flovent daily- hasn't used albuterol in 1 year) Dyspnea frequency: never. Rescue inhaler use: never. Hospitalizations/ER in the last year: 0. Most recent exacerbation: 0. FEV1 % predicted: 63%. Pertinent negatives: COPD; sleep apnea (JASMINA); pulmonary hypertension; no O2 use outside the hospital; no history of oral steroid use; no prior intubation for respiratory failure due to asthma; non-smoker and no tracheostomy Comments: Seen yearly by pulmonology for pulmonary sarcodisis dx in 1998 STEPHANIA and PFT 2022 Hepatic / Heme Pertinent negatives: liver disease and history of anemia Gastrointestinal + GERD - on daily therapy. Asymptomatic. Renal / + Renal disease - CKD Pertinent negatives: dialysis and nephrolithiasis Comments: Dr. Samuel Torres spooler- reports diagnosed in 2021 but has not followed up. Reports kidney function is monitored by PCP. Baseline Cr 1.5-1.8 Musculoskeletal/Pain + Chronic pain + Chronic opioid use (Takes 3 [place] per day) - daily. + Osteoarthritis Endocrine / Other + Diabetes mellitus - Diabetes type 2. Diabetic complications: neuropathy. Outpatient insulin use: current. Pt reported low glucose range is 100. Pt reported high glucose range is 180. Pt reported HgA1c: 8.9. + Obesity (BMI >30) + Cancer history- skin cancer only. Pertinent negatives: thyroid disease Functional Capacity Functional capacity: <4 METs Comments: Uses cane and walker. Activity limited by pain and deconditioning. Denies SOB or CP. Independent with ADLS. Review of Systems + pedal edema + muscle weakness + chronic pain + numbness/tingling Pertinent negatives: productive cough; wheezing; SOB; recent cold/flu; chest pain; palpitations; orthopnea; PND (sleeps with 1 pillow); previous transfusion; transfusion reaction; melena/hematochezia; easy bruising; bleeding problems; syncope; dizziness; vision loss (wears reader); heartburn; nausea; dysphagia; dentures/partials; chipped/loose teeth; abdominal pain (denies UTI symptoms) and no unexpected weight change PAT Summary and Plans Cardiac risk classification of planned procedure: intermediate cardiac risk. Preoperative assessment status: lab tests ordered. Initial preoperative evaluation discussed with: Isis Cain MD Additional comments: Criss yL is a 73 y.o. female who is being evaluated prior to undergoing anintermediate cardiac risk surgery. Revised Cardiac Risk Index factors are (history of CHF ( per chart Hx- patient denies and insulin therapy for diabetes) for a total RCRI of 2 out of 6. Functional capacity is <4 METs (specifically: Uses cane and walker. Activity limited by pain and deconditioning. Denies SOB or CP. Independent with ADLS). Obstructive sleep apnea (JASMINA) screening status is STOP-Bang=4 suggesting moderate risk for JASMINA, bicarbonate value pending. The patient is at elevated risk for obstructive sleep apnea (JASMINA) per STOP-BANG screening questionnaire results. Patient informed of the possibility that they have undiagnosed JASMINA, which may increase their risk for perioperative respiratory events. Patient also informed of the possible long-term health problems associated with JASMINA. Because we do not feel that preoperative JASMINA testing is likely to outweigh the downsides of delaying surgery, we have recommended that the patient talk to their primary doctor or other clinician after surgery about getting tested for JASMINA. Blood bank needs for day of procedure: T&C 2 unit pRBCs Pending labs/tests include: CBC BMP T&S PT PTT Urinalysis flex Vitamin D hemoglobin A1C DOS T&S, DOS Glucose This patient has a history of VTE, is on chronic anticoagulation therapy, and is at low risk of recurrent VTE per 2012 ACCP criteria. The patient is on aspirin therapy and has a history of history DVT . For the proposed procedure, the risk of increased bleeding likely outweighs the benefits of preoperative antiplatelet therapy. If the surgeon agrees with risk assessment, we would support stopping aspirin up to 7-10 days prior to the procedure and resuming therapy when feasible in the postoperative period. [employer] staff message sent to surgeon's office. Please call the CPAP chart room clinician ([phone]) with any questions. The patient is on oral anticoagulation therapy with apixaban (ELIQUIS) and is scheduled for a procedure with a planned/possible nerve block and/or is at low or intermediate risk for perioperative thrombosis. Estimated creatinine clearance is significantly impaired at 25 ml/min. ?? We recommend holding all doses of this anticoagulant for 96 hours prior to the procedure. Therapeutic anticoagulationshould be resumed post-operatively when the bleeding risk is acceptable. Alternative anticoagulation therapies can be used in the interim if acceptable. [employer] staff message sent to surgeon's office. Please call the CPAP chart room clinician ([phone]) to revisit risk assessment, with any questions, or to discuss alternative management plans.?? Preoperative evaluation performed by Nazario Rodriguez NP on 11/14/23 at 10:47 AM. . Follow up note Labs reviewed and are significant for: PT/INR=19.4/1.7, PTT=78, consistent with Apixaban. Labs reviewed and are significant for a total CO2 of 29 . With a STOP-Bang score of 3-4, this qualifies the patient as high risk for severe JASMINA. JASMINA order set initiated. Awaiting outside records. Surgeon's office reviews laboratory results independently, including final results of surgeon ordered labs. Waiting outside PFTs and pulmonary notes for chart completion. Follow-up completed by: Susu Mejia NP on 11/17/23 at 9:28 AM Discussed with: Sarah Amador MD Follow up note Received last Pulmonology OVN from 02/07/23, no changes, with f/u in 1 year which is scheduled for this January 2024. PFT received showing spirometry suggestive of a mild to moderate restrictive ventilatory defect added to diagnostics CPAP complete Follow-up completed by: Markus Cabezas NP on 11/19/23 at 1:33 PM Patient Active Problem List Diagnosis Date Noted ??? 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 ([facility]) 11/10/2023 ??? Melanoma of right upper arm (HCC) 10/27/2023 ??? BMI 39.0-39.9,adult 10/05/2023 ??? Chronic anticoagulation 10/05/2023 ??? Family history of colon cancer in father 05/27/2023 ??? Encounter for screening colonoscopy 05/27/2023 ??? Personal history of COVID-19 02/18/2022 ??? Acute embolism and thrombosis of right femoral vein ([facility]) 01/18/2022 ??? Age-related osteoporosis without current pathological fracture 01/18/2022 ??? Difficulty in walking, not elsewhere classified 01/18/2022 ??? Gastro-esophageal reflux disease without esophagitis 01/18/2022 ??? Hypertension secondary to endocrine disorders 01/18/2022 ??? Spinal stenosis, lumbar region without neurogenic claudication 01/18/2022 ??? Type 2 diabetes mellitus with diabetic neuropathy, unspecified ([facility]) 01/18/2022 ??? Unsteadiness on feet 01/18/2022 ??? Type 2 diabetes mellitus with hyperlipidemia ([facility]) 01/17/2022 ??? Chronic back pain 01/17/2022 ??? Weakness of both lower extremities 01/16/2022 ??? Lumbar radiculopathy 12/06/2021 ??? Sacroiliitis ([facility]) 09/07/2021 ??? Cervicalgia 09/07/2021 ??? Low back pain 09/07/2021 ??? Insomnia secondary to chronic pain 09/07/2021 ??? Degenerative cervical spinal stenosis 09/07/2021 ??? Degenerative disc disease, cervical 09/07/2021 ??? CKD (chronic kidney disease) stage 4, GFR 15-29 ml/min ([facility]/H[facility]) (HCC) 08/23/2021 ??? Morbid (severe) obesity due to excess calories (HCC) 08/22/2021 ??? DDD (degenerative disc disease), lumbar 08/17/2021 ??? Degenerative lumbar spinal stenosis 08/17/2021 ??? Lumbar post-laminectomy syndrome 08/17/2021 ??? Persistent vomiting 11/17/2018 ??? Hx of colonic polyps 09/04/2018 ??? Family hx of colon cancer 09/04/2018 ??? Healthcare maintenance 12/27/2016 ??? Medication management 12/27/2016 ??? Idiopathic osteoporosis with pathological fracture 08/14/2015 ??? Arthralgia of hip 07/21/2015 ??? Adenomatous polyp of colon 04/08/2015 ??? Sarcoidosis of lung (HCC) 04/08/2015 ??? Fever 08/25/2014 ??? Type 2 diabetes mellitus with stage 3 chronic kidney disease, with long-term current use of insulin ([facility]) 11/27/2013 ??? Severe obesity (BMI 35.0-39.9) with comorbidity (HCC) 11/27/2013 ??? Hyperlipidemia 04/01/2012 ??? Disorder of peripheral nervous system (CMS/HCC) 04/01/2012 ??? Hypertension associated with diabetes ([facility]) 04/01/2012 Past Medical History: Diagnosis Date ??? Asthma ??? Benign hypertension with CKD (chronic kidney disease) stage III (HCC) ??? Gastroesophageal reflux disease GERD ??? HX OTHER MEDICAL PMO ??? 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 HX OTHER MEDICAL [facility] OA ??? HX OTHER MEDICAL 2008 Discectomy, cervical ??? HX OTHER MEDICAL Fall ??? HX OTHER MEDICAL Left proximal femoral Gamma Nail fixation proximal; Comments: JALMA 07/25/2015 - ??? HX OTHER MEDICAL RTKR 2001.; Comments: J 07/25/2015 - ??? HX OTHER MEDICAL LTKR 2006.; Comments: J 07/25/2015 - ??? HX OTHER MEDICAL Back surgery 2007.; Comments: J 07/25/2015 - ??? HX OTHER MEDICAL Cervical disc surg. 2008.; Comments: JALMA 07/25/2015 - ??? HX OTHER MEDICAL Breast reduction 2009.; Comments: JALMA 07/25/2015 - ??? HX OTHER MEDICAL left hip and leg surgery ??? HX OTHER MEDICAL conversion of previous hip arthroplasty left hip; Comments: [facility] unit 02/06 - 02/17/16 for rehabilitation. ??? Hyperlipidemia Hyperlipidemia ??? Hypertension Hypertension ??? Lumbar stenosis ??? Osteoarthritis Osteoarthritis ??? Osteoporosis ??? Polyp of colon colon polyps ??? Sarcoidosis Sarcoidosis ??? Type 2 diabetes mellitus (HCC) Diabetes type 2 ??? Type 2 diabetes mellitus with diabetic autonomic (poly)neuropathy (HCC) ??? Type 2 diabetes mellitus with hyperglycemia (CMS/HCC) (HCC) ??? Type II diabetes mellitus with stage 3 chronic kidney disease (HCC) Past Surgical History: Procedure Laterality Date ??? BACK SURGERY 08/14/2006 back surgery - microdecompression Lumbar - Dr. Srinath Tovar ??? BACK SURGERY 03/25/2022 Dr. Robinson Block ??? COLONOSCOPY 09/15/2013 ??? LUMBAR SPINE SURGERY Surgery, lumbar spine ??? NECK SURGERY 06/2008 4 discs replaced in neck, Dr. Srinath Tovar ??? OTHER SURGICAL HISTORY Fall: Medical Management ??? REDUCTION MAMMAPLASTY Bilateral 2008 ??? TONSILLECTOMY tonsillectomy ??? TOTAL HIP ARTHROPLASTY Left 02/05/2016 Dr. David Sykes, [facility] - conversion of previous hip arthroplasty left hip: Conversion of Arthroplasty left hip ??? TOTAL KNEE ARTHROPLASTY Left 09/27/2005 Left TKA - Dr. Cole Beckham ??? TOTAL KNEE ARTHROPLASTY Right 08/27/2001 Right TKA - Dr. Kuldeep Basurto OB History 0 Para 0 Term 0 0 AB 0 Living 0 SAB 0 IAB 0 Ectopic 0 Multiple 0 Live Births 0 No Known Allergies Med List Status: Nurse Complete Set By: Susy Rodney RN at 11/14/2023 10:25 AM Taking? Last Dose Start Date End Date Provider albuterol HFA (PROVENTIL HFA,VENTOLIN HFA,PROAIR HFA) 90 mcg/actuation inhaler More than a month 08/07/22 -- Lalito England MD Inhale 2 puffs every 6 (six) hours as needed for wheezing Patient taking differently: Inhale 2 puffs every 6 (six) hours as needed for wheezing alendronate (FOSAMAX) 70 mg tablet Past Week 06/12/23 -- Lalito England MD TAKE 1 TABLET BY MOUTH EVERY FRIDAY FOR OSTEOPOROSIS Patient taking differently: Take 1 tablet (70 mg total) by mouth every 7 days tuesdays amoxicillin 500 mg capsule Past Month 09/04/23 -- Sofiya Gibbons MD apixaban (ELIQUIS) 5 mg tablet 11/14/2023 -- -- Sofiya Gibbons MD aspirin 81 mg enteric coated tablet 11/14/2023 -- -- Sofiya Gibbons MD biotin 10,000 mcg capsule Past Month -- -- Sofiya Gibbons MD blood glucose diagnostic (Contour Next Test Strips) strip -- 09/11/23 -- Lalito England MD TEST BLOOD SUGAR 3 TIMES A DAY AND WILL MONTIOR RESPONSE. DX: E11.22. blood-glucose meter (CONTOUR NEXT USB METER) [facility] [place] -- 07/04/14 -- Clayton Sandoval MD test as directed calcium carbonate-vitamin D3 500 mg(1,250mg) -400 unit tablet 11/13/2023 08/10/07 -- Clayton Sandoval MD Take one by mouth two times per day Patient taking differently: Take 500 mg by mouth 2 (two) times a day cloNIDine (CATAPRES) 0.1 mg tablet 11/14/2023 06/12/23 -- Lalito England MD TAKE 1/2 TABLET BY MOUTH TWICE DAILY FOR HYPERTENSION Patient taking differently: Take 1 tablet (0.1 mg total) by mouth 2 (two) times a day docusate sodium (COLACE) 100 mg capsule 11/14/2023 -- -- Sofiya Gibbons MD Eliquis 5 mg tablet 11/14/2023 05/26/23 -- Lalito England MD TAKE 1 TABLET BY MOUTH TWICE DAILY finasteride (PROSCAR) 5 mg tablet -- 10/24/23 -- Sofiya Gibbons MD fluticasone propionate (FLONASE) 50 mcg/actuation nasal spray 11/14/2023 08/14/23 -- Lalito England MD SPRAY 2 SPRAYS INTO EACH NOSTRIL EVERY DAY Notes: DX Code Needed . fluticasone propionate (Flovent Diskus) 100 mcg/actuation diskus inhaler 11/14/2023 01/06/23 -- Lalito England MD Inhale 1 puff 2 (two) times a day Rinse mouth with water after use. Do not swallow. Patient taking differently: Inhale 1 puff 2 (two) times a day Rinse mouth with water after use. Do not swallow. furosemide (LASIX) 20 mg tablet 11/14/2023 10/23/22 11/14/23 Lalito England MD Take 2 tablets (40 mg total) by mouth daily gabapentin (NEURONTIN) 100 mg capsule 11/14/2023 06/08/23 -- Lalito England MD TAKE 1 CAPSULE BY MOUTH 3 TIMES DAILY FOR NEUROPATHY Patient taking differently: Take 1 capsule (100 mg total) by mouth 3 (three) times a day HYDROcodone-acetaminophen (NORCO) 5-325 mg per tablet 11/14/2023 10/13/23 -- Lalito England MD Take 1 tablet by mouth every 6 (six) hours as needed for pain insulin aspart (NovoLOG) 100 unit/mL (3 mL) pen for injection 11/14/2023 04/14/23 -- Lalito England MD Inject 15 Units under the skin 3 (three) times a day before meals lancets (MICROLET LANCET) [facility] [place] -- 07/26/15 -- Clayton Sandoval MD test by fingerstick route 3 times daily melatonin 3 mg tablet,disintegrating Not Taking -- -- Sofiya Gibbons MD montelukast (SINGULAIR) 10 mg tablet 11/13/2023 06/12/23 -- Lalito England MD TAKE 1 TABLET BY MOUTH AT BEDTIME FOR ALLERGIES Patient taking differently: Take 1 tablet (10 mg total) by mouth nightly mupirocin (BACTROBAN) 2 % ointment -- 10/17/23 -- Brennan Castillo MD Apply to nares BID starting 5 days prior to surgery ending the day prior naloxone (NARCAN) 4 mg/actuation spray,non-aerosol -- 12/28/21 -- David Caruso MD Administer 1 spray into affected nostril(s) as needed for opioid reversal Nyamyc powder 11/13/2023 10/22/23 -- Sofiya Gibbons MD omeprazole (PriLOSEC) 20 mg capsule 11/14/2023 03/25/23 -- Lalito England MD TAKE 1 CAPSUEL BY MOUTH TWICE DAILY FOR GERD Patient taking differently: Take 1 capsule (20 mg total) by mouth 2 (two) times a day pen needle, diabetic (BD Ultra-Fine Mini Pen Needle) 31 gauge x 3/16 needle -- 07/24/22 -- Lalito England MD 1 needle as directed Notes: taking as directed polyethylene glycol (MIRALAX) 17 gram/dose powder Past Month 07/24/22 -- Lalito England MD Take 17 g by mouth daily Patient taking differently: Take 17 g by mouth as needed semaglutide (Ozempic) 2 mg/dose (8 mg/3 mL) pen injector injection Past Week 09/15/23 -- Lalito England MD INJECT 2 MG SUBCUTANEOUSLY ONE TIME PER WEEK Patient taking differently: Inject 2 mg under the skin once a week [facility]/mL (3 mL) pen for injection 11/13/2023 10/22/23 -- Sofiya Gibbons MD simvastatin (ZOCOR) 40 mg tablet 11/13/2023 06/12/23 -- Lalito England MD TAKE 1 TABLET BY MOUTH AT BEDTIME triamcinolone (KENALOG) 0.1 % cream 11/13/2023 10/24/23 -- Sofiya Gibbons MD Notes: Current Outpatient Medications: ??? alendronate (FOSAMAX) 70 mg tablet ??? amoxicillin 500 mg capsule ??? apixaban (ELIQUIS) 5 mg tablet ??? aspirin 81 mg enteric coated tablet ??? biotin 10,000 mcg capsule ??? calcium carbonate-vitamin D3 500 mg(1,250mg) -400 unit tablet ??? cloNIDine (CATAPRES) 0.1 mg tablet ??? docusate sodium (COLACE) 100 mg capsule ??? Eliquis 5 mg tablet ??? fluticasone propionate (FLONASE) 50 mcg/actuation nasal spray ??? fluticasone propionate (Flovent Diskus) 100 mcg/actuation diskus inhaler ??? furosemide (LASIX) 20 mg tablet ??? gabapentin (NEURONTIN) 100 mg capsule ??? HYDROcodone-acetaminophen (NORCO) 5-325 mg per tablet ??? insulin aspart (NovoLOG) 100 unit/mL (3 mL) pen for injection ??? montelukast (SINGULAIR) 10 mg tablet ??? Nyamyc powder ??? omeprazole (PriLOSEC) 20 mg capsule ??? polyethylene glycol (MIRALAX) 17 gram/dose powder ??? semaglutide (Ozempic) 2 mg/dose (8 mg/3 mL) pen injector injection ??? SEMGLEE-yfgn 100 unit/mL (3 mL) pen for injection ??? simvastatin (ZOCOR) 40 mg tablet ??? triamcinolone (KENALOG) 0.1 % cream ??? albuterol HFA (PROVENTIL HFA,VENTOLIN HFA,PROAIR HFA) 90 mcg/actuation inhaler ??? blood glucose diagnostic (Contour Next Test Strips) strip ??? blood-glucose meter (CONTOUR NEXT USB METER) misc ??? finasteride (PROSCAR) 5 mg tablet ??? lancets (MICROLET LANCET) misc ??? melatonin 3 mg tablet,disintegrating ??? mupirocin (BACTROBAN) 2 % ointment ??? naloxone (NARCAN) 4 mg/actuation spray,non-aerosol ??? pen needle, diabetic (BD Ultra-Fine Mini Pen Needle) 31 gauge x 3/16 needle Social History Tobacco Use Smoking Status Never Smokeless Tobacco Never Alcohol Use: Not At Risk (10/08/2023) AUDIT-C ??? Frequency of Alcohol Consumption: Never ??? Average Number of Drinks: Patient does not drink ??? Frequency of Binge Drinking: Never Substance and Sexual Activity Drug Use Never Family History Problem Relation Age of Onset ??? Diabetes Mother Diabetes mellitus; ??? Hypertension Mother Hypertension; ??? Heart disease Father Heart disease; ??? Heart failure Father CHF; Cause of : CHF ??? Colon cancer Father ??? Diabetes Brother Diabetes mellitus; ??? Cancer Brother ??? Lymphoma Brother Cancer -lymphoma; ??? Stroke Brother ??? Hypertension Brother ??? Breast cancer Neg Hx ??? Ovarian cancer Neg Hx ??? Thyroid cancer Neg Hx PAT Physical Exam Airway Exam: Mallampati: III Cervical ROM: FROM TM distance: 3 Upper lip bite test class: 3 Cardiovascular Exam: Rate: regular Rhythm: regular Negative for Murmur Peripheral edema: non-pitting Pulmonary Exam: LCTA, bilat EENT Exam: trachea midline Dental Exam: Appears intact Skin Exam: Skin is warm. Abdominal exam: Abdomen is soft. Bowel sounds are present. Current state: Patient's current state is cooperative. Vitals: 11/14/23 1000 11/14/23 1002 BP: 134/50 134/48 Pulse: 65 Resp: 22 SpO2: 100% Relevant diagnostics: ECG(s): N/A Echocardiogram(s): N/A Stress test(s): N/A Cardiac catheterization(s): N/A PFT(s): 02/07/23 FEV1 Pred 2.25, LLN 1.66, Best 1.43, %pred 63 FEV1/FVC Pred 0.755, LLN 0.657, Best 0.730, %pred 97 DLCO pred 22.4, LLN 15.3, Result 13, %pred 58 Vascular studies: N/A Other: 10/07/2022 CT Cervical spine IMPRESSION: Unchanged 5 mm of C7 on T1 anterior subluxation with [id number] abutment of the endplates, sclerosis and severe bilateral facet arthropathy inferior to a C3-C7 solid non-instrumented interbody fusion construct. Persistent severe central canal stenosis at this point of known spinal cord compression demonstrated on 07/29/2023 MRI. Severe bilateral neural foraminal stenosis results from loss of height and subluxation. PT: No results found for requested labs [...] for requested labs within last 30 days. documented in this encounter Procedure Notes * Andi Simmons NP - 12/04/2023 9:57 AM CDT Drain Removal Note SHARRI drain x1 removed without difficulty. Sutures removed, drain pulled, tubing intact upon removal. Sterile 2x2 dressing and tape placed over insertion site. No erythema noted. Patient tolerated procedure well. RN notified of removal. Plan: - Okay to remove dressing tomorrow and leave site open to air. documented in this encounter Consult Notes * Jimena Roach RN - 11/28/2023 2:47 PM CDTAssociated Order(s): CONSULT TO WOUND CARE Consult received regarding bilateral lower extremity wounds. Upon assessment ,there are several small scabbed areas present. Would leave these open to the air. There is a small pink wound on the left leg. Leave this open to the air also. For further questions, concerns or changes please call the wound/ostomy team. DOMINGO Bishop, RN, CWON * Melva Lilly MD - 11/26/2023 7:22 PM CDTAssociated Order(s): CONSULT TO ENDOCRINOLOGY DIABETES Endocrinology & Diabetes Consult Note Patient: Criss Ly, 73 y.o. female (: 1950) Room: [place] [id number] ( ) LOS: 2 Consult Question: diabetes management (Requesting Provider: Brennan Castillo MD) Criss Ly is a 73 y.o. female with PMHx of T2D, multilevel anterior cervical diskectomy, obesity, sarcoidosis who was admitted for posterior spinal fusion of C5-T2 and b/l foraminotomies on 11/23. Endocrinology is consulted for inpatient diabetes management. HPI Type of Diabetes: 2, diagnosed in 1998 in the setting of steroid induced hyperglycemia, when she was put on HDS for pulmonary sarcoidosis Duration of diabetes: >25 years Famhx of diabetes: present Diabetes provider: PCP Microvascular complications: neuropathy, follows with podiatry, CKD stage III (Follows with nephrology). Gets regular eye exams but no hx of DR Macrovascular complications: denies any hx of CAD/CVA/PVD Home regimen: lantus 20 units qhs + lispro 15 units with meals (but decreases the dose to 7-10 units if pre-meal BG are <100) + ozempic 2mg weekly She was previously on metformin but was d/c due to worsening kidney function Does FSBG checks 3x/ day. AM BG are usually <200 and her pre-meal BG are mostly running between 70-100. Hypoglycemic events: denies any BG <70, denies experiencing any symptoms of lows like dizziness,tremors, numbness, palpitations She is currently in neck brace, still have some neck pain. She is tolerating PO intake, eating about 50% of meals. Its mostly because she does not like hospital food. No nausea, vomiting, abdominal pain, SOB or chest pain. She required insulin gtt in the OR but has been off of it since yesterday at 0900. She was started on basal bolus regimen last night. Diet: Adult Diet Restricted; Consistent Carbohydrate Recent Labs Lab Units 11/26/23 1718 11/26/23 1153 11/26/23 0809 11/26/23 0122 11/25/23200611/25/23 1641 11/25/23 1207 11/25/23 0959 11/25/23 0855 11/25/23 0804 POC GLUCOSE MONITOR mg/dL 208* 169 157 185 217* 181 165 138 122 128 Lab Results Component Value Date HGBA1C 7.6 (H) 11/14/2023 PMH & PSH She has a past medical history of Asthma, Benign hypertension with CKD (chronic kidney disease) stage III (), Gastroesophageal reflux disease, OTHER MEDICAL, OTHER MEDICAL, OTHER MEDICAL, OTHER MEDICAL (2007), OTHER MEDICAL, OTHER MEDICAL, OTHER MEDICAL, OTHER MEDICAL, OTHER MEDICAL, OTHER MEDICAL, OTHER MEDICAL, OTHER MEDICAL, OTHER MEDICAL, Hyperlipidemia, Hypertension, Lumbar stenosis, Osteoarthritis, Osteoporosis, Polyp of colon, Sarcoidosis, Type 2 diabetes mellitus ([facility]), Type 2 diabetes mellitus with diabetic autonomic (poly)neuropathy ([facility]), Type 2 diabetes mellitus with hyperglycemia (CMS/HCC) ([facility]), and Type II diabetes mellitus with stage 3 chronic kidney disease ([facility]). She has a past surgical history that includes Total knee arthroplasty (Left, 09/27/2005); Total knee arthroplasty (Right, 08/27/2001); Back surgery (08/14/2006); Tonsillectomy; Lumbar spine surgery; Other surgical history; Reduction mammaplasty (Bilateral, 2008); Colonoscopy (09/15/2013); Back surgery (03/25/2022); Total hip arthroplasty (Left, 02/05/2016); and Neck surgery (06/2008). Social & Family History She reports that she has never smoked. She has been exposed to tobacco smoke. She has never used smokeless tobacco. She reports that she does not use drugs. Patient denies consuming alcoholic drinks. Her family history includes Cancer in her brother; Colon cancer in her father; Diabetes in her brother and mother; Heart disease in her father; Heart failure in her father; Hypertension in her brother and mother; Lymphoma in her brother; Stroke in her brother. Review of Systems Twelve point ROS reviewed and negative except as noted in HPI. All other systems negative. Vitals & Physical Exam Temp: [36.3 ??C (97.3 ??F)-36.4 ??C (97.5 ??F)] 36.4 ??C (97.5 ??F) Pulse: [62-72] 63 BP: (108-139)/(44-77) 108/44 Resp: [17] 17 SpO2: [93 %-96 %] 96 % Body mass index is 37.13 kg/m??. No intake/output data recorded. Physical Exam Gen : no acute distress, alert, appropriate, cooperative, appears stated age, well-developed, well-nourished HENT : in neck brace Eyes : conjunctiva clear, anicteric Pulm : clear to auscultation in anterior williamson, non-labored, on room air CV : regular rate & rhythm Abd : soft, non-tender, non-distended, normoactive bowel sounds Extr : lower extremity lymphedema with redness and some blistering on L leg Skin : turgor normal, no rashes/wounds/lesions Neuro : alert, speech fluent, comprehension intact, moving all extremities Psych : cooperative, appropriate affect & mood, good insight & judgment Data Medications, labs, imaging, and diagnostics independently reviewed in Epic and commented on below. Lab Results Component Value Date TSH 2.10 11/27/2021 FREET4 1.42 02/09/2021 Lab Results Component Value Date CHOL 134 09/17/2023 TRIG 121 09/17/2023 HDL 45 09/17/2023 LDLCALC 65 09/17/2023 Lab Results Component Value Date PTH 103 (H) 09/28/2021 25HYDROVITD 31 11/14/2023 Lab Results Component Value Date HGBA1C 7.6 (H) 11/14/2023 Assessment & Plan # Type 2 Diabetes Mellitus, Uncontrolled, complicated by Nephropathy: CKD3, Peripheral Neuropathy, and At Risk of Macrovascular Complications Current HbA1c and reliability: 7.6, unreliable iso blood transfusion HbA1c goal based on comorbidities: <7 Diabetes Provider: PCP Insurance: Payor: [facility] / Plan: [employer] HEALTHCARE / Product Type: MEDICARE RISK OTHER/ Home regimen: lantus 20 units qhs + lispro 15 units with meals + ozempic 2mg weekly (takes it on Mondays, last dose was 2 weeks ago) 73yo F with reasonably controlled T2D who was admitted for spinal fusion surgery on 11/23. She received dex 10mg and methylpred 80mg on the day of her surgery. She was initially put on insulin gtt buthas been off of it since 0900 11/24. She was started on basal bolus regimen last night and her BG have been reasonably controlled. Outpatient regimen results in slightly excessive daytime control and would advise liberalizing given age, comorbidity status, and fall risk. Recommendations: Basal Insulin: - glargine 16 units qHS Mealtime/Bolus Insulin: - lispro 6 units TID AC Correctional/Sliding-Scale Insulin: - sensitive correctional lispro TID AC, HS - POC glucoses TID AC, HS, 2AM when eating - Consistent carb diet when eating; no juices, no regular soda - When NPO, continue glargine, hold mealtime lispro, change correctional (sliding scale) lispro andPOC glucoses to Q4hr - Consider D5/0.45NS 100 mls/hr or D10 50 ml/hr if prolonged NPO (>12hrs) - If he has severe hyperglycemia (>300), use the hyperglycemia urgency order set (make NPO, IV insulin, re-check in 1 hour) > The half-life of IV insulin is ~5 minutes; it's safer than giving multiple doses of subQ insulin (can last ~4 hours & builds up if given repeatedly). #Osteoporosis: Had a low trauma hip fracture back in 2014 which led to the clinical diagnosis of osteoporosis. Shehas been on fosamax since ?2014, patient does not remember exactly. Denies any drug holiday. Her last DEXA scan in chart is from 2020. No new fragility fractures since then Vitamin D 31, Ca 8.5 (11/14/2023), Cr 1.28 with eGFR 44 -She will need a repeat DEXA scan outpatient. -We would typically treat for 5-10 years, but then would recommend a drug holiday if felt that her risk factors are mitigated and osteoporosis stable. We advised her to discuss appropriateness of this with her primary care doctor and referral to Endocrine/Bone can be considered if additional assistance is needed. ## Discharge Planning PCP -- Melva Lilly MD Endocrinology, Metabolism, & Lipid Research Cosigned by Anni Sanchez MD at 11/26/2023 8:24 PM CDT Associated attestation - Anni Sanchez MD - 11/26/2023 8:24 PM CDT I have seen and examined the patient on 11/26/23. I agree with the findings and plan of care as documented in the resident's/fellow's note. and as discussed with the resident/fellow.. In brief, Ms. Ly was admitted following spinal surgery and we will work on optimizing glycemic control. We reviewed signs and sx of hypoglycemia, reviewed there may be fluctuations in glycemic control related to oral intake, steroid administration, renal function and activity/participation in therapy. She will be discharging to rehab and we will provide recommendations for MDI prior to discharge. Of note, she has had nearly 10 years of bisphosphonate therapy and is due for re-evaluation and consideration of drug holiday, which we advised her to discuss with her PCP based on updated DEXA. Thank you for opportunity to contribute to her care. We will continue to follow along. documented in this encounter Nursing Notes * Svitlana Klein RN - 11/25/2023 10:29 AM CDT Surgical fellow at bedside and per Dr. Jonathan chavarria goal map 65. documented in this encounter Miscellaneous Notes * Plan of Care - Naomy Ochoa - 12/04/2023 11:04 AM CDT Problem: Lack of Knowledge Goal: Ability to develop a pain control plan will improve 12/04/2023 1104 by Naomy Ochoa Outcome: Progressing 12/04/2023 1104 by Naomy Ochoa Outcome: Progressing Flowsheets (Taken 12/04/2023 1000) Ability to develop a pain control plan will improve: Explain causes of pain and how long pain can be expected to last Teach information regarding pain management Educate pain scale for assessing level of pain Teach notification to healthcare provider of episodes of pain Problem: Medication Goal: Satisfaction with pain management medication regimen will improve 12/04/20231103 by Naomy Ochoa Outcome: Progressing 12/04/2023 110 by Naomy Ochoa Outcome: Progressing Flowsheets (Taken 12/04/2023 1000) Satisfaction with pain management medication regimen will improve: Assess satisfaction with pain management regimen Evaluate medication effects Provide administration of medications prior to painful activities Report inadequate pain control to healthcare provider Problem: Sensory Goal: Ability to identify factors that increase pain levels will improve while working to decrease the patient's pain levels 12/04/2023 110 by Naomy Ochoa Outcome: Progressing 12/04/20231103 by Naomy Ochoa Outcome: Progressing Flowsheets (Taken 12/04/2023 1000) Ability to identify factors that increase pain levels will improve while working to decrease patients pain levels: Assess pain status Explore factors that precipitate, worsens, or relieves pain or discomfort Explore and collaborate with complimentary and alternative therapies Encourage distraction activities Assess effects of pain control measures Evaluate treatment plan for related conditions Explore alternative treatments for pain from the patient's culture Problem: Coping Goal: Ability to cope will improve 12/04/20231103 by Naomy Ochoa Outcome: Progressing 12/04/20231103 by Naomy Ochoa Outcome: Progressing Flowsheets (Taken 12/04/2023 1000) Ability to cope will Improve: Encourage vebalization of feelings surrounding pain Provide emotional support Problem: Health Behavior Goal: Identification of resources available to assist in meeting health care needs will improve 12/04/20231103 by Naomy Ochoa Outcome: Progressing 12/04/2023 110 by Naomy Ochoa Outcome: Progressing Flowsheets (Taken 12/04/2023 1000) Identification of resources available to assist in meeting health care needs will improve: Collaborate with pain management Collaborate with all therapies Problem: Skin Integrity Impairment Risk Goal: Mobility will improve 12/04/20231103 by Naomy Ochoa Outcome: Progressing 12/04/2023 110 by Naomy Ochoa Outcome: Progressing Flowsheets (Taken 12/04/2023 1000) Mobility will improve: Encourage mobilization to extent of ability, assist with range of motion as needed Encourage turning and repositioning, assist as needed Assess circulation, sensation and/or motion of extremity Encourage ambulation Collaborate with physical therapy Goal: Understanding of ways to prevent future skin breakdown will improve 12/04/2023 110 by Naomy Ochoa Outcome: Progressing 12/04/2023 110 by Naomy Ochoa Outcome: Progressing Flowsheets (Taken 12/04/2023 1000) Understanding of ways to prevent future skin breakdown will improve: Discuss treatments to protect skin integrity Discuss treatment plan for related conditions Goal: Nutritional status will improve 12/04/2023 110 by Naomy Ochoa Outcome: Progressing 12/04/2023 1104 by Naomy Ochoa Outcome: Progressing Flowsheets (Taken 12/04/2023 1000) Nutritional status will improve: Assess nutritional status Monitor intake and output Encourage nutritional intake Goal: Risk for impaired skin integrity will decrease 12/04/20231103 by Naomy Ochoa Outcome: Progressing 12/04/2023 110 by Naomy Ochoa Outcome: Progressing Flowsheets (Taken 12/04/2023 1000) Risk for impaired skin integrity will decrease: Identify risk factors for impaired skin integrity and/or pressure injuries Monitor skin integrity, appearance and temperature Implement precautions to protect skin integrity Provide pressure-redistribution bed, mattress and/or chair cushion Float heels off surface Protect skin from pressure due to medical devices when appropriate Problem: Fall Risk Goal: Ability to state ways to decrease the risk of falls will improve 12/04/20231103 by Naomy Ochoa Outcome: Progressing 12/04/2023 110 by Naomy Ochoa Outcome: Progressing Flowsheets (Taken 12/04/2023 1000) Ability to state ways to decrease the risk of falls will improve: Teach fall prevention measures Teach information regarding appropriate enviornmental changes Goal: Will remain free from falls 12/04/2023 110 by Naomy Ochoa Outcome: Progressing 12/04/2023 110 by Naomy Ochoa Outcome: Progressing Flowsheets (Taken 12/04/2023 1000) Will remain free from falls: Assess risk factors for falls Implement fall prevention measures Collaborate with other disciplines Goal: Will remain free from injury from falls 12/04/2023 110 by Naomy Ochoa Outcome: Progressing 12/04/2023 110 by Naomy Ochoa Outcome: Progressing Flowsheets (Taken 12/04/2023 1000) Will remain free from injury from falls: Provide safe environment for conduction of activities of daily living in hospital environment Problem: Discharge Planning Goal: Understanding discharge needs will improve 12/04/2023 110 by Naomy Ochoa Outcome: Progressing 12/04/2023 110 by Naomy Ochoa Outcome: Progressing Flowsheets (Taken 12/04/2023 1000) Understanding of discharge needs will improve: Discuss information regarding discharge instructions Identify discharge learning needs (meds, wound care, etc.) Collaborate with case management interdisciplinary team Arrange for needed discharge resources and transportation as appropriate Identify discharge barriers Problem: Lack of Knowledge Goal: Ability to describe self care measures that may prevent or decrease complications related to Type 1 Diabetes will improve 12/04/2023 110 by Naomy Ochoa Outcome: Progressing 12/04/2023 110 by Naomy Ochoa Outcome: Progressing Flowsheets (Taken 12/04/2023 1000) Ability to describe self care measures that may prevent or decrease complications related to Type 1Diabetes will improve: Teach blood glucose measurement Teach signs and symptoms of hyperglycemia Teach signs and symptoms of hypoglycemia Teach/demonstrate insulin injections Goal: Ability to describe self care measures that may prevent or decrease complications related to Type 2 Diabetes will improve 12/04/2023 110 by Naomy Ochoa Outcome: Progressing 12/04/20231103 by Naomy Ochoa Outcome: Progressing Flowsheets (Taken 12/04/2023 1000) Ability to describe self care measures that may prevent or decrease complications related to Type 2Diabetes will improve: Teach risks of complications of diabetes Teach blood glucose measurement Teach signs and symptoms of hyperglycemia Teach signs and symptoms of hypoglycemia Problem: Health Nutrition Goal: Nutritional intake and knowledge related to Diabetes will improve 12/04/2023 110 by Naomy Ochoa Outcome: Progressing 12/04/2023 110 by Naomy Ochoa Outcome: Progressing Flowsheets (Taken 12/04/2023 1000) Nutritional intake and knowledge related to Diabetes will improve: Collaborate with supplemental manager for diabetes evaluation and/or teaching Instruct on counting carbohydrates Discuss information on weight management Discuss benefits of regular exercise as it is related to blood glucose lowering effect and overall weight loss goals Problem: Neurosensory Goal: Achieves stable or improved neurological status 12/04/2023 110 by Naomy Ochoa Outcome: Progressing 12/04/2023 1104 by Naomy Ochoa Outcome: Progressing Goal: Absence of seizures 12/04/2023 110 by Naomy Ochoa Outcome: Progressing 12/04/2023 110 by Naomy Ochoa Outcome: Progressing Goal: Remains free of injury related to seizures activity 12/04/2023 1104 by Naomy Ochoa Outcome: Progressing 12/04/2023 1104 by Naomy Ochoa Outcome: Progressing Goal: Achieves maximal functionality and self care 12/04/2023 110 by Naomy Ochoa Outcome: Progressing 12/04/2023 1104 by Naomy Ochoa Outcome: Progressing Flowsheets (Taken 12/04/2023 1000) Achieves maximal functionality and self care: Monitor swallowing and airway patency with patient fatigue and changes in neurological status Encourage and assist patient to increase activity and self care with guidance from therapies Goal: Ability to maintain intracranial pressure will improve 12/04/2023 110 by Naomy Ochoa Outcome: Progressing 12/04/2023 110 by Naomy Ochoa Outcome: Progressing Problem: Skin/Tissue Integrity Goal: Skin integrity remains intact 12/04/2023 110 by Naomy Ochoa Outcome: Progressing 12/04/2023 110 by Naomy Ochoa Outcome: Progressing Flowsheets (Taken 12/04/2023 1000) Skin integrity remains intact: Assess and document risk factors for pressure injury development Assess and document skin integrity Monitor for areas of redness and/or skin breakdown Goal: Incisions, wounds, or drain sites healing without S/S of infection 12/04/2023 110 by Naomy Ochoa Outcome: Progressing 12/04/2023 110 by Naomy Ochoa Outcome: Progressing Flowsheets (Taken 12/04/2023 1000) Incision(s), Wound(s) or Drain Site(s) healing without S/S of infection: Assess and document risk factors for pressure injury development Assess and document skin integrity Assess and document dressing/incision, wound bed, drain sites and surrounding tissue Implement wound care per orders Goal: Oral mucous membranes remain intact Description: 12/04/2023 110 by Naomy Ochoa Outcome: Progressing 12/04/2023 110 by Naomy Ochoa Outcome: Progressing Flowsheets (Taken 12/04/2023 1000) Oral mucous membranes remain intact: Assess oral mucosa and hygiene practices Implement preventative oral hygiene regimen Problem: Musculoskeletal Goal: Return mobility to safest level of function 12/04/2023 110 by Naomy Ochoa Outcome: Progressing 12/04/2023 110 by Naomy Ochoa Outcome: Progressing Flowsheets (Taken 12/04/2023 1000) Return mobility to safest level of function: Assess patient stability and activity tolerance for standing, transferring and ambulating with or without assistive devices Assist with transfers and ambulation using safe patient handling equipment as needed Ensure adequate protection for wounds/incisions during mobilization Goal: Maintain proper alignment of affected body part 12/04/2023 110 by Naomy Ochoa Outcome: Progressing 12/04/2023 110 by Naomy Ochoa Outcome: Progressing Flowsheets (Taken 12/04/2023 1000) Maintain proper alignment of affected body part: Support and protect limb and body alignment per provider's orders Instruct and reinforce with patient and family use of appropriate assistive device and precautions (e.g. spinal or hip dislocation precautions) Goal: Return ADL status to a safe level of function 12/04/2023 110 by Naomy Ochoa Outcome: Progressing 12/04/20231103 by Naomy Ochoa Outcome: Progressing Flowsheets (Taken 12/04/2023 1000) Return activities of daily living status to a safe level of function: Assess patient's activities of daily living deficits and provide assistive devices as needed Assist and instruct patient to increase activity and self care Goal: Ability to perform activities at highest level will improve 12/04/20231103 by Naomy Ochoa Outcome: Progressing 12/04/20231103 by Naomy Ochoa Outcome: Progressing Flowsheets (Taken 12/04/2023 1000) Ability to perform activities at highest level will improve: Implement use of braces, orthotics Provide diversional activities Goal: Mobility, ROM and muscle strength will improve 12/04/2023 110 by Naomy Ochoa Outcome: Progressing 12/04/20231103 by Naomy Ochoa Outcome: Progressing Flowsheets (Taken 12/04/2023 1000) Mobility, ROM and muscle strength will improve: Provide proper bed mobility techniques Encourage mobilization to extent of ability Encourage prescribed exercise Provide positioning in correct anatomical alignment Perform passive and/or assist with range of motion Goals: Clinical Goals for the Shift: VSS. Chair for all meals. Ambulate. Pain well managed. Hoping to discharge Virologist Patient Centered Goal for Treatment: Awaiting placement Summary: VSS. Chair for meals and ambulated. Pain well managed. Patient belongings packed and with patient. Report called to Susan LOWERY. All questions answered. Patient and family updated. * Plan of Care - Madelaine Scott RN - 12/04/2023 8:28 AM CDT Per Rounds: Appeal has overturned insurance decision. Patient may discharge to rehab when bed available. ADD: pending bed availability Plan & referrals made/in place: [facility] following. Per Radha, bed may not be availabletoday, however beds will be available 12/04. Patient's Identified Problem/Goal Problem: Ensure acute medical needs are met and patient has a safe discharge plan. Goal: Secure a discharge plan that patient/family are agreeable with and ensure patient has continuum of care. [employer] will continue to follow and assist with discharge planning as needed * Plan of Care - Nancy Mercedes - 12/03/2023 2:57 PM CDT Problem: Lack of Knowledge Goal: Ability to develop a pain control plan will improve Outcome: Ongoing Flowsheets (Taken 12/03/2023 1400) Ability to develop a pain control plan will improve: Explain causes of pain and how long pain can be expected to last Problem: Medication Goal: Satisfaction with pain management medication regimen will improve Outcome: Ongoing Flowsheets (Taken 12/03/2023 1400) Satisfaction with pain management medication regimen will improve: Assess satisfaction with pain management regimen Problem: Sensory Goal: Ability to identify factors that increase pain levels will improve while working to decrease the patient's pain levels Outcome: Ongoing Flowsheets (Taken 12/03/2023 1400) Ability to identify factors that increase pain levels will improve while working to decrease patients pain levels: Assess pain status Problem: Coping Goal: Ability to cope will improve Outcome: Ongoing Flowsheets (Taken 12/03/2023 1400) Ability to cope will Improve: Encourage vebalization of feelings surrounding pain Problem: Health Behavior Goal: Identification of resources available to assist in meeting health care needs will improve Outcome: Ongoing Flowsheets (Taken 12/03/2023 1400) Identification of resources available to assist in meeting health care needs will improve: Collaborate with pain management Problem: Skin Integrity Impairment Risk Goal: Mobility will improve Outcome: Ongoing Flowsheets (Taken 12/03/2023 1400) Mobility will improve: Encourage mobilization to extent of ability, assist with range of motion as needed Goal: Understanding of ways to prevent future skin breakdown will improve Outcome: Ongoing Flowsheets (Taken 12/03/2023 1400) Understanding of ways to prevent future skin breakdown will improve: Discuss treatments to protect skin integrity Goal: Nutritional status will improve Outcome: Ongoing Flowsheets (Taken 12/03/2023 1400) Nutritional status will improve: Monitor intake and output Goal: Risk for impaired skin integrity will decrease Outcome: Ongoing Flowsheets (Taken 12/03/2023 1400) Risk for impaired skin integrity will decrease: Identify risk factors for impaired skin integrity and/or pressure injuries Problem: Fall Risk Goal: Ability to state ways to decrease the risk of falls will improve Outcome: Ongoing Flowsheets (Taken 12/03/2023 1400) Ability to state ways to decrease the risk of falls will improve: Teach fall prevention measures Goal: Will remain free from falls Outcome: Ongoing Flowsheets (Taken 12/03/2023 1400) Will remain free from falls: Assess risk factors for falls Goal: Will remain free from injury from falls Outcome: Ongoing Flowsheets (Taken 12/03/2023 1400) Will remain free from injury from falls: Provide safe environment for conduction of activities of daily living in hospital environment Problem: Discharge Planning Goal: Understanding discharge needs will improve Outcome: Ongoing Flowsheets (Taken 12/03/2023 1400) Understanding of discharge needs will improve: Identify discharge learning needs (meds, wound care,etc.) Goals: Clinical Goals for the Shift: Mobility as tolerated, monitor VS and I & O, pain management Virologist Patient Centered Goal for Treatment: Awaiting placement Summary: Pt up in chair, pain management done, VSS * Plan of Care - Madelaine Scott RN - 12/03/2023 11:12 AM CDT Per Rounds: patient medically stable for discharge. Waiting for appeal ADD: pending insurance Plan & referrals made/in place: [facility] following for possible admission. Per liaison Radha, appeal is still pending. Patient's Identified Problem/Goal Problem: Ensure acute medical needs are met and patient has a safe discharge plan. Goal: Secure a discharge plan that patient/family are agreeable with and ensure patient has continuum of care. [employer] will continue to follow and assist with discharge planning as needed * Plan of Care - Nancy Mercedes - 12/02/2023 1:35 PM CDT Problem: Lack of Knowledge Goal: Ability to develop a pain control plan will improve Outcome: Ongoing Flowsheets (Taken 12/02/2023 1000) Ability to develop a pain control plan will improve: Explain causes of pain and how long pain can be expected to last Problem: Medication Goal: Satisfaction with pain management medication regimen will improve Outcome: Ongoing Flowsheets (Taken 12/02/2023 1000) Satisfaction with pain management medication regimen will improve: Assess satisfaction with pain management regimen Problem: Sensory Goal: Ability to identify factors that increase pain levels will improve while working to decrease the patient's pain levels Outcome: Ongoing Flowsheets (Taken 12/02/2023 1000) Ability to identify factors that increase pain levels will improve while working to decrease patients pain levels: Assess pain status Problem: Coping Goal: Ability to cope will improve Outcome: Ongoing Flowsheets (Taken 12/02/2023 1000) Ability to cope will Improve: Encourage vebalization of feelings surrounding pain Problem: Health Behavior Goal: Identification of resources available to assist in meeting health care needs will improve Outcome: Ongoing Flowsheets (Taken 12/02/2023 1000) Identification of resources available to assist in meeting health care needs will improve: Collaborate with pain management Problem: Skin Integrity Impairment Risk Goal: Mobility will improve Outcome: Ongoing Flowsheets (Taken 12/02/2023 1000) Mobility will improve: Encourage mobilization to extent of ability, assist with range of motion as needed Goal: Understanding of ways to prevent future skin breakdown will improve Outcome: Ongoing Flowsheets (Taken 12/02/2023 1000) Understanding of ways to prevent future skin breakdown will improve: Discuss treatments to protect skin integrity Goal: Nutritional status will improve Outcome: Ongoing Flowsheets (Taken 12/02/2023 1000) Nutritional status will improve: Assess nutritional status Goal: Risk for impaired skin integrity will decrease Outcome: Ongoing Flowsheets (Taken 12/02/2023 1000) Risk for impaired skin integrity will decrease: Identify risk factors for impaired skin integrity and/or pressure injuries Problem: Fall Risk Goal: Ability to state ways to decrease the risk of falls will improve Outcome: Ongoing Flowsheets (Taken 12/02/2023 1000) Ability to state ways to decrease the risk of falls will improve: Teach fall prevention measures Goal: Will remain free from falls Outcome: Ongoing Flowsheets (Taken 12/02/2023 1000) Will remain free from falls: Assess risk factors for falls Goal: Will remain free from injury from falls Outcome: Ongoing Flowsheets (Taken 12/02/2023 1000) Will remain free from injury from falls: Provide safe environment for conduction of activities of daily living in hospital environment Problem: Discharge Planning Goal: Understanding discharge needs will improve Outcome: Ongoing Flowsheets (Taken 12/02/2023 1000) Understanding of discharge needs will improve: Identify discharge learning needs (meds, wound care,etc.) Goals: Clinical Goals for the Shift: Pain management, ambulate as tolerated, Monitor drain output Virologist Patient Centered Goal for Treatment: Awaiting insurance appeal decision for placement Summary: Pain management done, ambulated in [place], I & O/Vitals monitored. * Summary of Treatment Recommendations Non-Billable - Radha Ragland NP - 12/02/2023 1:25 PM CDT Diabetes Service Sign Off Recommendations Type of DM: Type 2 Diabetes Mellitus Diagnosis: Cervicalgia [M54.2] Cervical stenosis of spine [M48.02] PMD: Lalito England MD Medication Recommendations (Please use the ADULT END DIABETES DISCHARGE order set): - glargine 16 units qHS - lispro 6 units TID AC - sensitive correctional lispro TID AC, HS Blood glucose mg/dL: 149 or less: No insulin 150-199: add 1 unit 200-249: add 2 units 250-299: add 3 units 300-349: add 4 units and notify healthcare provider for adjustment of insulin orders. 350-399: add 5 units and notify healthcare provider for adjustment of insulin orders. Over 400: Notify healthcare provider for adjustment of insulin orders. Labs/Frequency to be Monitored: before meals and bedtime HbA1c every 3 months or 6 months if appropriate, Urine microalbumin/creatinine test yearly, Cholesterol panel yearly, and Dilated eye exam yearly or sooner as indicated by your eyeglass lens grinder Pending results for primary service or primary care physician to follow up on: none Follow Up Plan: Primary Care Provider Dr England. Appointment date: February 09, 2024 at 9:15 AM * Consults, Subsequent - Radha Ragland NP - 12/02/2023 1:21 PM CDT Endocrinology & Diabetes Progress Note Patient: Criss Ly, 73 y.o. female (: 1950) Room: [place] [id number] ( ) LOS: 8 Criss Ly is a 73 y.o. female with PMHx of T2D, multilevel anterior cervical diskectomy, obesity, sarcoidosis who was admitted for posterior spinal fusion of C5-T2 and b/l foraminotomies on 11/23. The Endocrinology/Diabetes Service was consulted to provide diabtes management, discharge planning,and recommendations during this hospitalization. Interval Events & Subjective There were no acute events overnight. Patient is awake, sitting in chair. She reports good appetite. She denies fever/chills, nausea/vomiting, chest pain/shortness of breath. She has had a recent BM and is urinating normally. Diet: Adult Diet Restricted; Consistent Carbohydrate Recent Labs Lab Units 12/02/23 1118 12/02/23 0740 12/02/23 0532 12/02/23 0528 12/01/23 2032 12/01/23 1705 12/01/23 1154 12/01/23 0741 12/01/23 0316 11/30/23 2040 GLUCOSE mg/dL -- -- 167 -- -- -- -- -- -- 130 POC GLUCOSE MONITOR mg/dL 214* 169 -- 169 164 142 157 148 147 -- Over the previous 24 hours, blood glucose has remained in good margin of safety and well controlledwith range of 142-169 mg/dl with 35 units TDD of subcutaneous insulin. Inpatient glucose targets are 100-180 mg/dl. Fasting blood glucose was 169 mg/dl. Pre-lunch blood glucose was 214 mg/dl. Interval Review of Systems As noted in HPI Vitals & Exam Temp: [36.2 ??C (97.2 ??F)] 36.2 ??C (97.2 ??F) Pulse: [62-78] 66 BP: (115-118)/(54-81) 115/81 Resp: [16-18] 18 SpO2: [96 %-98 %] 98 % I/O this shift: In: - Out: 820 [Urine:800; Drains:20] Physical Exam Gen : 73 year old female in no acute distress, alert, appropriate, cooperative, appears stated age,well-developed, well-nourished HENT : normocephalic, atraumatic, Cervical collar in place Eyes : conjunctiva clear, anicteric, no proptosis/exophthalmos/lid lag Pulm : non-labored, on room air Extr : atraumatic, no cyanosis/clubbing/edema Skin : turgor normal, no rashes/wounds/lesions Neuro : alert, speech fluent, comprehension intact, moving all extremities Psych : cooperative, appropriate affect & mood, good insight & judgment Data Medications, labs, imaging, and diagnostics independently reviewed in [facility] and commented on below. Lab Results Component Value Date TSH 2.10 11/27/2021 FREET4 1.42 02/09/2021 Lab Results Component Value Date CHOL 134 09/17/2023 TRIG 121 09/17/2023 HDL 45 09/17/2023 LDLCALC 65 09/17/2023 Lab Results Component Value Date PTH 79 (H) 12/01/2023 25HYDROVITD 31 11/14/2023 Lab Results Component Value Date HGBA1C 7.6 (H) 11/14/2023 Assessment & Plan 73 y.o. female with PMHx of T2D, multilevel anterior cervical diskectomy, obesity, sarcoidosis who was admitted for posterior spinal fusion of C5-T2 and b/l foraminotomies on 11/23. # Type 2 Diabetes Mellitus, Uncontrolled, complicated by Nephropathy: CKD3, Peripheral Neuropathy, and At Risk of Macrovascular Complications Current HbA1c and reliability: 7.6, unreliable iso blood transfusion HbA1c goal based on comorbidities: <7 Diabetes Provider: PCP Insurance: Payor: [employer] HEALTHCARE / Plan: [employer] / Product Type: MEDICARE RISK OTHER/ Home regimen: lantus 20 units qhs + lispro 15 units with meals + ozempic 2mg weekly (takes it on Mondays, last dose was 2 weeks ago) Over the previous 24 hours, blood glucose has remained in good margin of safety and well controlledwith range of 142-169 mg/dl with 35 units TDD of subcutaneous insulin. Inpatient glucose targets are 100-180 mg/dl. Fasting blood glucose was 169 mg/dl. Pre-lunch blood glucose was 214 mg/dl. I have reviewed the following test results: CBC, CMP/BMP including renal function, serum glucose levels, and POC glucose levels. Inpatient glycemic management complicate by stress, variable oral intake, and high BMI with insulinresistance. As glycemia is in good margin of safety, We are not recommending changes to the current diabetes management. We have not made any changes for the last several days and after discussion with the primary team, will sign off for now. Please reengage if needed. Recommendation for diabetes management has been communicated to the primary care team. Recommendations: Basal Insulin: - Continue glargine 16 units qHS Mealtime/Bolus Insulin: - Continue lispro 6 units TID AC Correctional/Sliding-Scale Insulin: - Continue sensitive correctional lispro TID AC, HS - POC glucoses TID AC, HS, 2AM when eating - Consistent carb diet when eating; no juices, no regular soda - When NPO, continue glargine, hold mealtime lispro, change correctional (sliding scale) lispro andPOC glucoses to Q4hr - Consider D5/0.45NS 100 mls/hr or D10 50 ml/hr if prolonged NPO (>12hrs) - If he has severe hyperglycemia (>300), use the hyperglycemia urgency order set (make NPO, IV insulin, re-check in 1 hour) > The half-life of IV insulin is ~5 minutes; it's safer than giving multiple doses of subQ insulin (can last ~4 hours & builds up if given repeatedly). # Hyperlipidemia: - Diabetes is indication for statin therapy - Continue Simvastatin 40mg once daily in the evening (Home Medication) Chronic Kidney Disease Stage 3b: - Creat: 1.51 and eGFR 36 on 11/27/23 (baseline) - ACEi/ARB use in persons with both type 1 and type 2 diabetes can prevent the progression of renaldisease #Osteoporosis: Had a low trauma hip fracture back in 2014 which led to the clinical diagnosis of osteoporosis. Shehas been on fosamax since ?2014, patient does not remember exactly. Denies any drug holiday. Her last DEXA scan in chart is from 2020. No new fragility fractures since then Vitamin D 31, Ca 8.5 (11/14/2023), Cr 1.28 with eGFR 44 -She will need a repeat DEXA scan outpatient. -We would typically treat for 5-10 years, but then would recommend a drug holiday if felt that her risk factors are mitigated and osteoporosis stable. We advised her to discuss appropriateness of this with her primary care doctor and referral to Endocrine/Bone can be considered if additional assistance is needed. ## Discharge Planning Use Adult END Diabetes Discharge Order Set Tentative Discharge recommendation: TBD, likely home regimen basal/bolus Follow up with PCP: Lalito England MD 02/09/24 9:15 AM -- Radha Ragland NP Endocrinology, Metabolism, & Lipid Research Contact Info: New Consults: [phone]) General Endocrine (Non-Diabetes): [phone] (Check 'Treatment Team' assignment for Diabetes 1 vs 2 vs 3 vs 4) Diabetes After-Hours & Weekends: Diabetes Fellow [phone] or [phone] Cosigned by Natalya Barrera MD at 12/08/2023 12:07 PM CDT Associated attestation - Natalya Barrera MD - 12/08/2023 12:07 PM CDT I have reviewed this note for the purpose of clinical review of 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 I have not provided any direct patient care for this patient. * Plan of Care - Marie Caruso RN - 12/02/2023 10:54 AM CDT [facility] [phone] to determine if insurance auth appeal has been approved yet. Appeal is still pending. * Consults, Subsequent - Radha Ragland NP - 12/01/2023 2:41 PM CDT Endocrinology & Diabetes Progress Note Patient: Criss Ly, 73 y.o. female (: 1950) Room: [place] [id number] ( ) LOS: 7 Criss Ly is a 73 y.o. female with PMHx of T2D, multilevel anterior cervical diskectomy, obesity, sarcoidosis who was admitted for posterior spinal fusion of C5-T2 and b/l foraminotomies on 11/23. The Endocrinology/Diabetes Service was consulted to provide diabtes management, discharge planning,and recommendations during this hospitalization. Interval Events & Subjective There were no acute events overnight. Patient is awake, sitting in chair. She reports good appetite. She denies fever/chills, nausea/vomiting, chest pain/shortness of breath. She has had a recent BM and is urinating normally. Diet: Adult Diet Restricted; Consistent Carbohydrate Recent Labs Lab Units 12/01/23 1154 12/01/23 0741 12/01/23 0316 11/30/23 2040 11/30/23 2029 11/30/23 1636 11/30/23 1204 11/30/23 0756 11/30/23 0156 11/29/23 2232 GLUCOSE mg/dL -- -- -- 130 -- -- -- -- -- 174 POC GLUCOSE MONITOR mg/dL 157 148 147 -- 139 130 147 166 170 -- Over the previous 24 hours, blood glucose has been with in good margin of safety and well controlled with range of 130-166 mg/dl with 40 units TDD of subcutaneous insulin. Inpatient glucose targets are 100-180 mg/dl. Fasting blood glucose was 148 mg/dl. Pre-lunch blood glucose was 157 mg/dl. Interval Review of Systems As noted in HPI Vitals & Exam Temp: [36.3 ??C (97.3 ??F)-36.9 ??C (98.4 ??F)] 36.9 ??C (98.4 ??F) Pulse: [67-93] 69 BP: (127-144)/(57-72) 144/72 Resp: [16] 16 SpO2: [96 %-99 %] 99 % I/O this shift: In: 1160 [P.O.:1150; I.V.:10] Out: 930 [Urine:900; Drains:30] Physical Exam Gen : 73 year old female in no acute distress, alert, appropriate, cooperative, appears stated age,well-developed, well-nourished HENT : normocephalic, atraumatic, Cervical collar in place Eyes : conjunctiva clear, anicteric, no proptosis/exophthalmos/lid lag Pulm : non-labored, on room air Extr : atraumatic, no cyanosis/clubbing/edema Skin : turgor normal, no rashes/wounds/lesions Neuro : alert, speech fluent, comprehension intact, moving all extremities Psych : cooperative, appropriate affect & mood, good insight & judgment Data Medications, labs, imaging, and diagnostics independently reviewed in [facility] and commented on below. Lab Results Component Value Date TSH 2.10 11/27/2021 FREET4 1.42 02/09/2021 Lab Results Component Value Date CHOL 134 09/17/2023 TRIG 121 09/17/2023 HDL 45 09/17/2023 LDLCALC 65 09/17/2023 Lab Results Component Value Date PTH 103 (H) 09/28/2021 25HYDROVITD 31 11/14/2023 Lab Results Component Value Date HGBA1C 7.6 (H) 11/14/2023 Assessment & Plan 73 y.o. female with PMHx of T2D, multilevel anterior cervical diskectomy, obesity, sarcoidosis who was admitted for posterior spinal fusion of C5-T2 and b/l foraminotomies on 11/23. # Type 2 Diabetes Mellitus, Uncontrolled, complicated by Nephropathy: CKD3, Peripheral Neuropathy, and At Risk of Macrovascular Complications Current HbA1c and reliability: 7.6, unreliable iso blood transfusion HbA1c goal based on comorbidities: <7 Diabetes Provider: PCP Insurance: Payor: [employer] HEALTHCARE / Plan: [employer] / Product Type: MEDICARE RISK OTHER/ Home regimen: lantus 20 units qhs + lispro 15 units with meals + ozempic 2mg weekly (takes it on Mondays, last dose was 2 weeks ago) Over the previous 24 hours, blood glucose has been with in good margin of safety and well controlled with range of 130-166 mg/dl with 40 units TDD of subcutaneous insulin. Inpatient glucose targets are 100-180 mg/dl. Fasting blood glucose was 148 mg/dl. Pre-lunch blood glucose was 157 mg/dl. I have reviewed the following test results: CBC, CMP/BMP including renal function, serum glucose levels, and POC glucose levels. Inpatient glycemic management complicate by stress, variable oral intake, and high BMI with insulinresistance. As glycemia is in good margin of safety, We are not recommending changes to the current diabetes management. We will continue to intensely monitor blood glucose and titrate insulin as needed to optimize glycemic control to avoid hypoglycemic/hyperglycemic events. Recommendations for diabetes management has been communicated to the primary care team. Recommendations: Basal Insulin: - Continue glargine 16 units qHS Mealtime/Bolus Insulin: - Continue lispro 6 units TID AC Correctional/Sliding-Scale Insulin: - Continue sensitive correctional lispro TID AC, HS - POC glucoses TID AC, HS, 2AM when eating - Consistent carb diet when eating; no juices, no regular soda - When NPO, continue glargine, hold mealtime lispro, change correctional (sliding scale) lispro andPOC glucoses to Q4hr - Consider D5/0.45NS 100 mls/hr or D10 50 ml/hr if prolonged NPO (>12hrs) - If he has severe hyperglycemia (>300), use the hyperglycemia urgency order set (make NPO, IV insulin, re-check in 1 hour) > The half-life of IV insulin is ~5 minutes; it's safer than giving multiple doses of subQ insulin (can last ~4 hours & builds up if given repeatedly). # Hyperlipidemia: - Diabetes is indication for statin therapy - Continue Simvastatin 40mg once daily in the evening (Home Medication) Chronic Kidney Disease Stage 3b: - Creat: 1.51 and eGFR 36 on 11/27/23 (baseline) - ACEi/ARB use in persons with both type 1 and type 2 diabetes can prevent the progression of renaldisease #Osteoporosis: Had a low trauma hip fracture back in 2014 which led to the clinical diagnosis of osteoporosis. Shehas been on fosamax since ?2014, patient does not remember exactly. Denies any drug holiday. Her last DEXA scan in chart is from 2020. No new fragility fractures since then Vitamin D 31, Ca 8.5 (11/14/2023), Cr 1.28 with eGFR 44 -She will need a repeat DEXA scan outpatient. -We would typically treat for 5-10 years, but then would recommend a drug holiday if felt that her risk factors are mitigated and osteoporosis stable. We advised her to discuss appropriateness of this with her primary care doctor and referral to Endocrine/Bone can be considered if additional assistance is needed. ## Discharge Planning Use Adult END Diabetes Discharge Order Set Tentative Discharge recommendation: TBD, likely home regimen basal/bolus +/- GLP-1 Follow up with PCP: Lalito England MD 02/09/24 9:15 AM -- Radha Ragland NP Endocrinology, Metabolism, & Lipid Research Contact Info: New Consults: [phone]) General Endocrine (Non-Diabetes): [phone] (Check 'Treatment Team' assignment for Diabetes 1 vs 2 vs 3 vs 4) Diabetes After-Hours & Weekends: Diabetes Fellow [phone] or [phone] Cosigned by Natalya Barrera MD at 12/08/2023 12:07 PM CDT Associated attestation - Natalya Barrera MD - 12/08/2023 12:07 PM CDT I have reviewed this note for the purpose of clinical review of 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 I have not provided any direct patient care for this patient. * Plan of Care - Marie Caruso RN - 12/01/2023 9:52 AM CDT [facility] [phone] to determine if insurance auth has been approved. Auth still pending. 1406: Radha notified CM that patient's insurance denied auth, and will start appeal. * Plan of Care - Damaris Hummel RN - 11/30/2023 10:46 AM CDT Problem: Lack of Knowledge Goal: Ability to develop a pain control plan will improve Outcome: Progressing Flowsheets (Taken 11/30/2023 1000) Ability to develop a pain control plan will improve: Explain causes of pain and how long pain can be expected to last Teach information regarding pain management Problem: Medication Goal: Satisfaction with pain management medication regimen will improve Outcome: Progressing Flowsheets (Taken 11/30/2023 1000) Satisfaction with pain management medication regimen will improve: Assess satisfaction with pain management regimen Monitor patient controlled analgesia or anesthesia Evaluate medication effects Problem: Sensory Goal: Ability to identify factors that increase pain levels will improve while working to decrease the patient's pain levels Outcome: Progressing Flowsheets (Taken 11/30/2023 1000) Ability to identify factors that increase pain levels will improve while working to decrease patients pain levels: Assess pain status Observe non-verbal cues of discomfort, such as restlessness, muscle tension, or altered vital signs Problem: Coping Goal: Ability to cope will improve Outcome: Progressing Flowsheets (Taken 11/30/2023 1000) Ability to cope will Improve: Encourage vebalization of feelings surrounding pain Provide emotional support Problem: Skin Integrity Impairment Risk Goal: Mobility will improve Outcome: Progressing Flowsheets (Taken 11/30/2023 1000) Mobility will improve: Encourage mobilization to extent of ability, assist with range of motion as needed Encourage turning and repositioning, assist as needed Goal: Understanding of ways to prevent future skin breakdown will improve Outcome: Progressing Flowsheets (Taken 11/30/2023 1000) Understanding of ways to prevent future skin breakdown will improve: Discuss treatments to protect skin integrity Goal: Nutritional status will improve Recent Flowsheet Documentation Taken 11/30/2023 1000 by Damaris Hummel RN Nutritional status will improve: Assess nutritional status Encourage nutritional intake Goal: Risk for impaired skin integrity will decrease Recent Flowsheet Documentation Taken 11/30/2023 1000 by Damaris Hummel RN Risk for impaired skin integrity will decrease: Identify risk factors for impaired skin integrity and/or pressure injuries Monitor skin integrity, appearance and temperature Problem: Fall Risk Goal: Ability to state ways to decrease the risk of falls will improve Recent Flowsheet Documentation Taken 11/30/2023 1000 by Damaris Hummel RN Ability to state ways to decrease the risk of falls will improve: Teach fall prevention measures Teach information regarding appropriate enviornmental changes Goal: Will remain free from falls Recent Flowsheet Documentation Taken 11/30/2023 1000 by Damaris Hummel RN Will remain free from falls: Assess risk factors for falls Implement fall prevention measures Goal: Will remain free from injury from falls Recent Flowsheet Documentation Taken 11/30/2023 1000 by Damaris Hummel RN Will remain free from injury from falls: Provide safe environment for conduction of activities of daily living in hospital environment Problem: Discharge Planning Goal: Understanding discharge needs will improve Recent Flowsheet Documentation Taken 11/30/2023 1000 by Damaris Hummel RN Understanding of discharge needs will improve: Discuss information regarding discharge instructions Identify discharge learning needs (meds, wound care, etc.) Goals: Clinical Goals for the Shift: V/S, pain control , BG check, I & O, safety Summary: Pt alert and oriented * 4, v/s stable , pain control with oxycodone, Pt had [place] J, Pt able to tolerated ambulating with one person assist (walker), will continues to monitor. * Plan of Care - Carla Mortensen RN - 11/30/2023 12:16 AM CDT Goals: Clinical Goals for the Shift: Vital signs monitoring, pain control, safety transfers Summary: Problem: Lack of Knowledge Goal: Ability to develop a pain control plan will improve Outcome: Progressing Flowsheets (Taken 11/30/2023) Ability to develop a pain control plan will improve: Teach information regarding pain management Problem: Medication Goal: Satisfaction with pain management medication regimen will improve Outcome: Progressing Flowsheets (Taken 11/30/2023) Satisfaction with pain management medication regimen will improve: Assess satisfaction with pain management regimen Evaluate medication effects Problem: Sensory Goal: Ability to identify factors that increase pain levels will improve while working to decrease the patient's pain levels Outcome: Progressing Flowsheets (Taken 11/30/2023) Ability to identify factors that increase pain levels will improve while working to decrease patients pain levels: Assess pain status Observe non-verbal cues of discomfort, such as restlessness, muscle tension, or altered vital signs Problem: Coping Goal: Ability to cope will improve Outcome: Progressing Flowsheets (Taken 11/30/2023) Ability to cope will Improve: Encourage vebalization of feelings surrounding pain Problem: Health Behavior Goal: Identification of resources available to assist in meeting health care needs will improve Outcome: Progressing Problem: Skin Integrity Impairment Risk Goal: Mobility will improve Outcome: Progressing Flowsheets (Taken 11/30/2023) Mobility will improve: Encourage mobilization to extent of ability, assist with range of motion as needed Goal: Understanding of ways to prevent future skin breakdown will improve Outcome: Progressing Goal: Nutritional status will improve Outcome: Progressing Flowsheets (Taken 11/30/2023) Nutritional status will improve: Assess nutritional status Encourage nutritional intake Goal: Risk for impaired skin integrity will decrease Outcome: Progressing Flowsheets (Taken 11/30/2023) Risk for impaired skin integrity will decrease: Identify risk factors for impaired skin integrity and/or pressure injuries Monitor skin integrity, appearance and temperature Problem: Fall Risk Goal: Ability to state ways to decrease the risk of falls will improve Outcome: Progressing Flowsheets (Taken 11/30/2023) Ability to state ways to decrease the risk of falls will improve: Teach fall prevention measures Teach information regarding appropriate enviornmental changes Goal: Will remain free from falls Outcome: Progressing Flowsheets (Taken 11/30/2023) Will remain free from falls: Assess risk factors for falls Goal: Will remain free from injury from falls Outcome: Progressing Flowsheets (Taken 11/30/2023 0000) Will remain free from injury from falls: Provide safe environment for conduction of activities of daily living in hospital environment Problem: Discharge Planning Goal: Understanding discharge needs will improve Outcome: Progressing * Plan of Care - Damaris Hummel RN - 11/29/2023 4:00 PM CDT Problem: Fall Risk Goal: Ability to state ways to decrease the risk of falls will improve Recent Flowsheet Documentation Taken 11/29/2023 1100 by Damaris Hummel RN Ability to state ways to decrease the risk of falls will improve: Teach fall prevention measures Goal: Will remain free from falls Recent Flowsheet Documentation Taken 11/29/2023 1100 by Damaris Hummel RN Will remain free from falls: Assess risk factors for falls Implement fall prevention measures Goal: Will remain free from injury from falls Recent Flowsheet Documentation Taken 11/29/2023 1100 by Damaris Hummel RN Will remain free from injury from falls: Provide safe environment for conduction of activities of daily living in hospital environment Problem: Discharge Planning Goal: Understanding discharge needs will improve Recent Flowsheet Documentation Taken 11/29/2023 1100 by Damaris Hummel RN Understanding of discharge needs will improve: Discuss information regarding discharge instructions Identify discharge learning needs (meds, wound care, etc.) Problem: Lack of Knowledge Goal: Ability to develop a pain control plan will improve 11/29/2023 193 by Damaris Hummel RN Outcome: Progressing Flowsheets (Taken 11/29/2023 1100) Ability to develop a pain control plan will improve: Explain causes of pain and how long pain can be expected to last Teach information regarding pain management 11/29/2023 1114 by Damaris Hummel RN Outcome: Progressing Flowsheets (Taken 11/29/2023 1100) Ability to develop a pain control plan will improve: Explain causes of pain and how long pain can be expected to last Teach information regarding pain management Problem: Medication Goal: Satisfaction with pain management medication regimen will improve 11/29/2023 1936 by Damaris Hummel RN Outcome: Progressing Flowsheets (Taken 11/29/2023 1100) Satisfaction with pain management medication regimen will improve: Assess satisfaction with pain management regimen Evaluate medication effects 11/29/2023 1114 by Damaris Hummel RN Outcome: Progressing Flowsheets (Taken 11/29/2023 1100) Satisfaction with pain management medication regimen will improve: Assess satisfaction with pain management regimen Evaluate medication effects Goals: Clinical Goals for the Shift: v/s, pain control, safety, I & O, PT OT Summary: Pt alert and oriented *4, v/s stable, pain control with oxycodone, muscle relaxer. Pt ableto tolerated ambulating with walker ( one person assist), will continue to monitor. * Plan of Care - Brandy Gutiérrez RN - 11/29/2023 8:56 AM CDT Per Medical Chart/Rounds/IDR: 73 y/o female s/p C5-T2 PCDF. ADD: 11/28 vs 11/29 Plan & referrals made/in place: IRF: [facility] (P:[phone]) -accepted, auth started 11/27 Facility contact: Radha Gautam (P: [phone]) Weekend contact: Jenise (P: [phone]) Support following discharge: sister Italia ([phone]) Transportation: [facility] to be arranged by at ar F/U Appointments: Jan 07, 2024 12:30 PM -Return with Brennan Castillo MD [facility] Neuro[facility] Plan for weekend discharge: Contact Jenise ([phone]) regarding insurance auth, bed availability, room number, and report number for RN. Patient will need [facility] arranged to IRF. PCS form started with incomplete discharge packet placed by patient chart. Discharge packet contains face sheet, acute care transfer and authorization order form (needs signature), and post acute care transfer report. Packet will need signed discharge summary, and AVS added to it. For weekend assistance, please check the treatment team in [facility] for the assigned heel caser or contact the weekend Case Management phone * Plan of Care - Lashell Bustamante RN - 11/28/2023 10:17 PM CDT Goals: Clinical Goals for the Shift: Pain management; Monitor drain; Ambulate; Safety and comfort Summary: Problem: Lack of Knowledge Goal: Ability to develop a pain control plan will improve Outcome: Progressing Problem: Medication Goal: Satisfaction with pain management medication regimen will improve Outcome: Progressing Problem: Sensory Goal: Ability to identify factors that increase pain levels will improve while working to decrease the patient's pain levels Outcome: Progressing Problem: Coping Goal: Ability to cope will improve Outcome: Progressing Problem: Health Behavior Goal: Identification of resources available to assist in meeting health care needs will improve Outcome: Progressing Problem: Skin Integrity Impairment Risk Goal: Mobility will improve Outcome: Progressing Goal: Understanding of ways to prevent future skin breakdown will improve Outcome: Progressing Goal: Nutritional status will improve Outcome: Progressing Goal: Risk for impaired skin integrity will decrease Outcome: Progressing Problem: Fall Risk Goal: Ability to state ways to decrease the risk of falls will improve Outcome: Progressing Goal: Will remain free from falls Outcome: Progressing Goal: Will remain free from injury from falls Outcome: Progressing Problem: Discharge Planning Goal: Understanding discharge needs will improve Outcome: Progressing * Consults, Subsequent - Michael Diaz MD - 11/28/2023 9:42 PM CDT Endocrinology & Diabetes Consult Note Patient: Criss Ly, 73 y.o. female (: 1950) Room: [place] [address]/[place] [address] ( ) LOS: 4 Consult Question: diabetes management (Requesting Provider: Brennan Castillo MD) Criss Ly is a 73 y.o. female with PMHx of T2D, multilevel anterior cervical diskectomy, obesity, sarcoidosis who was admitted for posterior spinal fusion of C5-T2 and b/l foraminotomies on 11/23. Endocrinology is consulted for inpatient diabetes management. Interval events Patient with no complaints this am.FSBS 113-172 . Lantus 15 units + Lispro 19 units ( 15+ 19 ) Diet: Adult Diet Restricted; Consistent Carbohydrate Recent Labs Lab Units 11/28/23 1936 11/28/23 1701 11/28/23 1133 11/28/23 0738 11/28/23 0126 11/27/23 2251 11/27/23 2034 11/27/23 1711 11/27/23 1213 11/27/23 0749 GLUCOSE mg/dL -- -- -- -- -- 158 -- -- -- -- POC GLUCOSE MONITOR mg/dL 172 129 131 159 172 -- 165 113 139 198 Lab Results Component Value Date HGBA1C 7.6 (H) 11/14/2023 PMH & PSH She has a past medical history of Asthma, Benign hypertension with CKD (chronic kidney disease) stage III ([facility]), Gastroesophageal reflux disease, OTHER MEDICAL, OTHER MEDICAL, OTHER MEDICAL, OTHER MEDICAL (2007), OTHER MEDICAL, OTHER MEDICAL, OTHER MEDICAL, OTHER MEDICAL, OTHER MEDICAL, OTHER MEDICAL, OTHER MEDICAL, OTHER MEDICAL, OTHER MEDICAL, Hyperlipidemia, Hypertension, Lumbar stenosis, Osteoarthritis, Osteoporosis, Polyp of colon, Sarcoidosis, Type 2 diabetes mellitus (HCC), Type 2 diabetes mellitus with diabetic autonomic (poly)neuropathy ([facility]), Type 2 diabetes mellitus with hyperglycemia (CMS/HCC) ([facility]), and Type II diabetes mellitus with stage 3 chronic kidney disease ([facility]). She has a past surgical history that includes Total knee arthroplasty (Left, 09/27/2005); Total knee arthroplasty (Right, 08/27/2001); Back surgery (08/14/2006); Tonsillectomy; Lumbar spine surgery; Other surgical history; Reduction mammaplasty (Bilateral, 2008); Colonoscopy (09/15/2013); Back surgery (03/25/2022); Total hip arthroplasty (Left, 02/05/2016); and Neck surgery (06/2008). Social & Family History She reports that she has never smoked. She has been exposed to tobacco smoke. She has never used smokeless tobacco. She reports that she does not use drugs. Patient denies consuming alcoholic drinks. Her family history includes Cancer in her brother; Colon cancer in her father; Diabetes in her brother and mother; Heart disease in her father; Heart failure in her father; Hypertension in her brother and mother; Lymphoma in her brother; Stroke in her brother. Review of Systems Twelve point ROS reviewed and negative except as noted in HPI. All other systems negative. Vitals & Physical Exam Temp: [36.7 ??C (98 ??F)-37.1 ??C (98.7 ??F)] 36.7 ??C (98.1 ??F) Pulse: [64-74] 73 BP: (133-149)/(60-74) 149/74 Resp: [16] 16 SpO2: [95 %-97 %] 97 % Body mass index is 37.13 kg/m??. I/O this shift: In: - Out: 20 [Drains:20] Physical Exam Gen : no acute distress, alert, appropriate, cooperative, appears stated age, well-developed, well-nourished HENT : in neck brace Eyes : conjunctiva clear, anicteric Pulm : non-labored, on room air Abd : soft, non-tender, non-distended Extr : lower extremity lymphedema with redness and some blistering on L leg Skin : turgor normal, no rashes/wounds/lesions Neuro : alert, speech fluent, comprehension intact, moving all extremities Psych : cooperative, appropriate affect & mood, good insight & judgment Data Medications, labs, imaging, and diagnostics independently reviewed in Epic and commented on below. Lab Results Component Value Date TSH 2.10 11/27/2021 FREET4 1.42 02/09/2021 Lab Results Component Value Date CHOL 134 09/17/2023 TRIG 121 09/17/2023 HDL 45 09/17/2023 LDLCALC 65 09/17/2023 Lab Results Component Value Date PTH 103 (H) 09/28/2021 25HYDROVITD 31 11/14/2023 Lab Results Component Value Date HGBA1C 7.6 (H) 11/14/2023 Assessment & Plan # Type 2 Diabetes Mellitus, Uncontrolled, complicated by Nephropathy: CKD3, Peripheral Neuropathy, and At Risk of Macrovascular Complications Current HbA1c and reliability: 7.6, unreliable iso blood transfusion HbA1c goal based on comorbidities: <7 Diabetes Provider: PCP Insurance: Payor: [facility] / Plan: [facility] / Product Type: MEDICARE RISK OTHER/ Home regimen: lantus 20 units qhs + lispro 15 units with meals + ozempic 2mg weekly (takes it on Mondays, last dose was 2 weeks ago) 73yo F with reasonably controlled T2D who was admitted for spinal fusion surgery on 11/23. She received dex 10mg and methylpred 80mg on the day of her surgery. She was initially put on insulin gtt buthas been off of it since 0900 11/24. She was started on basal bolus regimen and her BG have been reasonably controlled as below and we recommend continuing the regimen below. Outpatient regimen results in slightly excessive daytime control and would advise liberalizing given age, comorbidity status, and fall risk. She last took Ozempic 2 weeks ago, discussed holding for now given her PO intake suboptimal, but can consider resuming in the future or at discharge. Recommendations: Basal Insulin: - glargine 16 units qHS Mealtime/Bolus Insulin: - lispro 6 units TID AC Correctional/Sliding-Scale Insulin: - sensitive correctional lispro TID AC, HS - POC glucoses TID AC, HS, 2AM when eating - Consistent carb diet when eating; no juices, no regular soda - When NPO, continue glargine, hold mealtime lispro, change correctional (sliding scale) lispro andPOC glucoses to Q4hr - Consider D5/0.45NS 100 mls/hr or D10 50 ml/hr if prolonged NPO (>12hrs) - If he has severe hyperglycemia (>300), use the hyperglycemia urgency order set (make NPO, IV insulin, re-check in 1 hour) > The half-life of IV insulin is ~5 minutes; it's safer than giving multiple doses of subQ insulin (can last ~4 hours & builds up if given repeatedly). #Osteoporosis: Had a low trauma hip fracture back in 2014 which led to the clinical diagnosis of osteoporosis. Shehas been on fosamax since ?2014, patient does not remember exactly. Denies any drug holiday. Her last DEXA scan in chart is from 2020. No new fragility fractures since then Vitamin D 31, Ca 8.5 (11/14/2023), Cr 1.28 with eGFR 44 -She will need a repeat DEXA scan outpatient. ( Last scan in 2020- c/w osteoporosis ) -We would typically treat for 5-10 years, but then would recommend a drug holiday if felt that her risk factors are mitigated and osteoporosis stable. -Would recommend consideration of Forteo or Tymlos which may theoretically offer benefits in terms of healing from her recent spinal fusion. - Check PTH , SPEP to complete work up secondary causes. -Reviewed the goal is 1200mg of calcium per day preferably through dietary sources 2000 IUs daily of vitamin D for maintenance. -will set up follow up with bone clinic . ## Discharge Planning PCP -- Michael Diaz MD Endocrinology, Metabolism, & Lipid Research * Plan of Care - Micheline Robertson RN - 11/28/2023 2:24 PM CDT Per Medical Chart/Rounds/IDR: 73 y/o female s/p C5-T2 PCDF. ADD: 11/28 vs 11/29 Plan & referrals made/in place: IRF: [facility] (P:[phone]) -accepted, auth started 11/27 Facility contact: Radha Gautam (P: [phone]) Weekend contact: Jenise (P: [phone]) Support following discharge: sister Italia ([phone]) Transportation: [facility] to be arranged by at ar F/U Appointments: Jan 07, 2024 12:30 PM -Return with Brennan Castillo MD [facility] Plan for weekend discharge: Contact Jenise ([phone]) regarding insurance auth, bed availability, room number, and report number for RN. Patient will need [facility] arranged to IRF. PCS form started with incomplete discharge packet placed by patient chart. Discharge packet contains face sheet, acute care transfer and authorization order form (needs signature), and post acute care transferreport. Packet will need signed discharge summary, and AVS added to it. For weekend assistance, please check the treatment team in [facility] for the assigned heel caser or contact the weekend Case Management phone * Consults, Subsequent - Radha Ragland NP - 11/28/2023 1:02 PM CDT Endocrinology & Diabetes Progress Note Patient: Criss Ly, 73 y.o. female (: 1950) Room: [id number] ( ) LOS: 4 Criss Ly is a 73 y.o. female with PMHx of T2D, multilevel anterior cervical diskectomy, obesity, sarcoidosis who was admitted for posterior spinal fusion of C5-T2 and b/l foraminotomies on 11/23. The Endocrinology/Diabetes Service was consulted to provide diabtes management, discharge planning,and recommendations during this hospitalization. Interval Events & Subjective There were no acute events overnight. Patient is awake, sitting in chair with family present. She reports good appetite. She denies fever/chills, nausea/vomiting, chest pain/shortness of breath. She has had a recent BM and is urinating normally. Diet: Adult Diet Restricted; Consistent Carbohydrate Recent Labs Lab Units 11/28/23 1133 11/28/23 0738 11/28/23 0126 11/27/23 2251 11/27/23 2034 11/27/23 1711 11/27/23 1213 11/27/23 0749 11/26/23 2244 11/26/23 1944 GLUCOSE mg/dL -- -- -- 158 -- -- -- -- 194 -- POC GLUCOSE MONITOR mg/dL 131 159 172 -- 165 113 139 198 -- 191 Over the previous 24 hours, blood glucose has been with in good margin of safety and near target with range of 113-198 mg/dl with 34 units TDD of subcutaneous insulin. Inpatient glucose targets are 100-180 mg/dl. Fasting blood glucose was 159 mg/dl. Pre-lunch blood glucose was 131 mg/dl. Interval Review of Systems As noted in HPI Vitals & Exam Temp: [36.3 ??C (97.4 ??F)-37.1 ??C (98.7 ??F)] 37.1 ??C (98.7 ??F) Pulse: [64-66] 64 BP: (143-148)/(56-63) 146/60 Resp: [14-16] 16 SpO2: [93 %-96 %] 96 % I/O this shift: In: - Out: 35 [Drains:35] Physical Exam Gen : 73 year old female in no acute distress, alert, appropriate, cooperative, appears stated age,well-developed, well-nourished HENT : normocephalic, atraumatic, Cervical collar in place Eyes : conjunctiva clear, anicteric, no proptosis/exophthalmos/lid lag Pulm : non-labored, on room air Extr : atraumatic, no cyanosis/clubbing/edema Skin : turgor normal, no rashes/wounds/lesions Neuro : alert, speech fluent, comprehension intact, moving all extremities Psych : cooperative, appropriate affect & mood, good insight & judgment Data Medications, labs, imaging, and diagnostics independently reviewed in Epic and commented on below. Lab Results Component Value Date TSH 2.10 11/27/2021 FREET4 1.42 02/09/2021 Lab Results Component Value Date CHOL 134 09/17/2023 TRIG 121 09/17/2023 HDL 45 09/17/2023 LDLCALC 65 09/17/2023 Lab Results Component Value Date PTH 103 (H) 09/28/2021 25HYDROVITD 31 11/14/2023 Lab Results Component Value Date HGBA1C 7.6 (H) 11/14/2023 Assessment & Plan 73 y.o. female with PMHx of T2D, multilevel anterior cervical diskectomy, obesity, sarcoidosis who was admitted for posterior spinal fusion of C5-T2 and b/l foraminotomies on 11/23. # Type 2 Diabetes Mellitus, Uncontrolled, complicated by Nephropathy: CKD3, Peripheral Neuropathy, and At Risk of Macrovascular Complications Current HbA1c and reliability: 7.6, unreliable iso blood transfusion HbA1c goal based on comorbidities: <7 Diabetes Provider: PCP Insurance: Payor: [employer] / Plan: [employer] / Product Type: MEDICARE RISK OTHER/ Home regimen: lantus 20 units qhs + lispro 15 units with meals + ozempic 2mg weekly (takes it on Mondays, last dose was 2 weeks ago) Over the previous 24 hours, blood glucose has been with in good margin of safety and near target with range of 113-198 mg/dl with 34 units TDD of subcutaneous insulin. Inpatient glucose targets are 100-180 mg/dl. Fasting blood glucose was 159 mg/dl. Pre-lunch blood glucose was 131 mg/dl. I have reviewed the following test results: CBC, CMP/BMP including renal function, serum glucose levels, and POC glucose levels. Inpatient glycemic management complicate by stress, variable oral intake, and high BMI with insulinresistance. As glycemia is in good margin of safety, We are not recommending changes to the current diabetes management. We will continue to intensely monitor blood glucose and titrate insulin as needed to optimize glycemic control to avoid hypoglycemic/hyperglycemic events. Recommendations for diabetes management has been communicated to the primary care team. Recommendations: Basal Insulin: - glargine 16 units qHS Mealtime/Bolus Insulin: - lispro 6 units TID AC Correctional/Sliding-Scale Insulin: - sensitive correctional lispro TID AC, HS - POC glucoses TID AC, HS, 2AM when eating - Consistent carb diet when eating; no juices, no regular soda - When NPO, continue glargine, hold mealtime lispro, change correctional (sliding scale) lispro andPOC glucoses to Q4hr - Consider D5/0.45NS 100 mls/hr or D10 50 ml/hr if prolonged NPO (>12hrs) - If he has severe hyperglycemia (>300), use the hyperglycemia urgency order set (make NPO, IV insulin, re-check in 1 hour) > The half-life of IV insulin is ~5 minutes; it's safer than giving multiple doses of subQ insulin (can last ~4 hours & builds up if given repeatedly). # Hyperlipidemia: - Diabetes is indication for statin therapy - Continue Simvastatin 40mg once daily in the evening (Home Medication) Chronic Kidney Disease Stage 3b: - Creat: 1.51 and eGFR 36 on 11/27/23 (baseline) - ACEi/ARB use in persons with both type 1 and type 2 diabetes can prevent the progression of renaldisease #Osteoporosis: Had a low trauma hip fracture back in 2014 which led to the clinical diagnosis of osteoporosis. Shehas been on fosamax since ?2014, patient does not remember exactly. Denies any drug holiday. Her last DEXA scan in chart is from 2020. No new fragility fractures since then Vitamin D 31, Ca 8.5 (11/14/2023), Cr 1.28 with eGFR 44 -She will need a repeat DEXA scan outpatient. -We would typically treat for 5-10 years, but then would recommend a drug holiday if felt that her risk factors are mitigated and osteoporosis stable. We advised her to discuss appropriateness of this with her primary care doctor and referral to Endocrine/Bone can be considered if additional assistance is needed. ## Discharge Planning Use Adult END Diabetes Discharge Order Set Tentative Discharge recommendation: TBD, likely home regimen basal/bolus +/- GLP-1 Follow up with PCP: Lalito England MD 02/09/24 9:15 AM -- Radha Ragland NP Endocrinology, Metabolism, & Lipid Research Contact Info: New Consults: [phone]) General Endocrine (Non-Diabetes): [phone] (Check 'Treatment Team' assignment for Diabetes 1 vs 2 vs 3 vs 4) Diabetes After-Hours & Weekends: Diabetes Fellow [phone] or [phone] Cosigned by Natalya Barrera MD at 12/08/2023 12:07 PM CDT Associated attestation - Natalya Barrera MD - 12/08/2023 12:07 PM CDT I have reviewed this note for the purpose of clinical review of 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 I have not provided any direct patient care for this patient. * [facility] Note - Micheline Robertson RN - 11/28/2023 9:00 AM CDT Images from the original note were not included. Patient Information: OT Eval and Treat Last 72 Hours OT Evaluation Row Name 11/26/23 0700 Chart Reviewed Yes -HC Session Type Evaluation -HC OT Received On 11/26/23 -HC Safe Environment Arm band checked;Patient found in supine;Gait belt utilized for all out of bed mobility -HC Subjective Agreeable to Therapy -HC Family/Caregiver Present No -HC Precautions Fall risk;Spinal/Back -HC Braces/Orthoses Cervical collar [place] J donned for entire session -HC Precaution Handout Issued No -HC Precaution Comments Verbally reviewed precautions prior to mobility. Pt demonstrated and verbalizedunderstanding. -HC Type of Home House -HC Home Layout One level -HC Home Access Ramped entrance -HC Bathroom Shower/Tub Tub/shower unit -HC Bathroom Toilet Raised -HC Bathroom Equipment Grab bars around toilet;Grab bars in shower/tub;Tub transfer bench -HC Bathroom Accessibility Accessible -HC Home Mobility Equipment-Available Wheelchair-manual;Wheeled walker -HC Home Mobility Equipment-Currently Using Wheelchair-manual -HC Additional Comments Pt reports using manual w/c for all mobility at baseline. -HC Level of [place] Independent functional transfers;Independent with ambulation;Independent withADLs;Independent with homemaking with wheelchair -HC Lives With Alone -HC Receives Help From Sibling Pt reports her sister would be in able to Check in a couple times a week, but not everyday -HC Driving No -HC ADL Assistance Independent -HC Instrumental ADL (IADL) Assistance Needs assistance -HC Meal Prep Maximal -HC Laundry Total -HC Cleaning Total -HC Shopping Total -HC [place] Moderate Pt sister brings bills over then Pt writes out checks to pay them -HC Medical Management Independent -HC Vocational/Occupation 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 -HC Fall within the last 6 months No -HC ADLS (WDL) X -HC Grooming: Where assessed Sitting at sink;Wheelchair -HC Grooming: Level of assistance Minimum Assist -HC Grooming: Assistance with Manipulation of containers Min for task, Sup for balance -HC Toileting: Where assessed Wheelchair -HC Toileting: Level of assistance Maximum Assist -HC Toileting: Assistance with Posterior;Clothing management up;Clothing management down;Anterior Max for task -HC Room Mobility: Where assessed Pt's room, to/from sink in bathroom -HC Health Management: Equipment Wheelchair -HC Room Mobility: Level of Assistance Minimum Assist -HC Room Mobility comment Min A for force production and balance -HC Toilet Transfer From Bed -HC Toilet Transfer Type To and from -HC Toilet Transfer to -- Wheelchair to sim -HC Toilet Transfer Technique Stand pivot -HC Toilet Transfer: Equipment Wheeled walker -HC Toilet Transfers Moderate assistance -HC Toilet Transfers Comments Mod A for force production and balance. -HC Pain Assessment 0-10 -HC Pain Score 5 - Moderate pain -HC Pain Location Incision -HC Pain Orientation Posterior -HC Pain Interventions Repositioned;RN Notified RN Graciela -HC Overall Cognitive Status WFL -HC Arousal/Alertness Alert;Appropriate responses to stimuli -HC Attention Span Appears intact -HC Memory Appears intact -HC Current communication Appears Intact -HC Orientation Oriented X4 (person, place, time, situation) -HC Following Commands Follows all commands and directions without difficulty -HC Safety Judgment Good awareness of safety precautions -HC Awareness of Errors Good awareness of errors made -HC Insight Fully aware of deficits -HC Problem Solving Able to problem solve independently -HC Compliance/Behavior Easy to engage -HC Perseveration Not present -HC Cognitive Tests Yes -HC What year is it now? 0 -HC What month is it now? 0 -HC Repeat this name and address after me David Braden [address] [place] [address] -HC Without looking at the clock, tell me what time it is 0 -HC Count aloud backwards from 20-1 2 -HC Say the months of the year backwards in reverse order 0 -HC Repeat the name and address I asked you to remember 2 -HC Short Blessed Total Score 4 -HC Short Blessed Comments WFL -HC Light Touch WFL -HC Numbness/Tingling Yes in BL hands and feet -HC Hand Preference Right -HC Coordination Functional -HC Gross Grasp Functional -HC Balance Tests Yes -HC Sitting Balance 1 -HC Arises 0 -HC Attempts to Arise 0 -HC Immediate Standing Balance (First 5 Seconds) 0 -HC Standing Balance 0 -HC Nudged 0 -HC Eyes Closed 0 -HC Turned 360 Degrees: Steadiness 0 -HC Turned 360 Degrees: Continuity of Steps 0 -HC Sitting Down 1 -HC Balance Score 2 -HC Balance Yes -HC Dynamic Sitting-Balance Support No upper extremity supported -HC Dynamic Sitting-Balance Lateral lean;Forward lean;Reaching for objects;Reaching across midline -HC Dynamic Sitting-Sitting Surface Bed -HC Dynamic Sitting-Level of Assistance Contact guard -HC Dynamic Sitting-Comments CGA for balance and safety -HC Dynamic Standing-Balance Support Bilateral upper extremity supported on ww -HC Dynamic Standing-Balance Lateral lean;Forward lean;Reaching for objects;Reaching across midline -HC Dynamic Standing-Standing Surface Floor -HC Dynamic Standing-Level of Assistance Moderate assistance -HC Dynamic Standing-Comments Mod A for balance and safety during simulated toilet transfer -HC Bed Mobility Yes -HC Bed Mobility From 1 Supine -HC Bed Mobility Type 1 To -HC Bed Mobility to 1 Edge of bed -HC Level of Assistance 1 Moderate Assist -HC Bed Mobility Comments 1 Mod A for trunk elevatin and bringing hips to EOB -HC Transfer Yes -HC Transfer From 1 Sit -HC Transfer Type 1 To and from -HC Transfer to 1 Stand -HC Technique 1 Sit to stand;Stand to sit -HC Transfer Device 1 Wheeled walker -HC Transfer Level of Assistance 1 Moderate Assist -HC Trials/Comments 1 Mod A for balance and force production -HC RUE Assessment X -HC RUE Comments Pt limited by pain this date -HC LUE Assessment X -HC LUE Comments Pt limited by pain this date -HC Comments Pt seen this date for initial OT evaluation. Pt reports having little to no help at home, stating her sister can check in on her a few times a week, but not everyday . Pt also reports usinga wheelchair for all mobility prior to surgery due to not walking too good . Discussed d/c rec of SNF in order to facilitate safe return to home. Pt was in agreement with d/c rec and OT POC. Pt would benefit from continued skilled OT services to improve ADL ind, balance, and strength. -HC Putting on and taking off regular lower body clothing 2 -HC Bathing 2 -HC Toileting 2 -HC Putting on and taking off upper body clothing 2 -HC Personal Grooming 3 -HC Eating Meals 3 -HC Total Score (range 6-24) 14 -HC Score Interpretation 33.39 -HC Safe Environment End of Therapy Session RN notified;Call light within reach;Overbed table within reach;Patient left in recliner;Chair alarm in place and activated -HC Problem List Decreased endurance;Decreased balance;Decreased fine motor control;Decreased functional mobility;Decreased gross motor control;Decreased ADL independence;Decreased IADL independence;Decreased upper extremity strength -HC Barriers to Discharge Current Mobility Status;Current ADL Status -HC Barrier Comments Fall risk - Plan Plan of care initiated;If this is the last note, consider this the discharge summary -HC OT Recommendation Long-Term Facility -HC Patient at high risk for Falls;Readmission;Injury due to decreased ability to care for self;Injury due to reduced functional status;Injury due to balance deficits - Recommend SNF due to Unable to safely care for self in the home;Risk of injury at home;Skilled therapy needed to address care for self in the home - OT Frequency during current admission 5-7x/wk - Treatment/Interventions during current admission ADL/IADL retraining;Balance Training;Bed mobility;Endurance training;Functional activity;Functional mobility training;Functional transfer training - OT Equipment Recommended Wheeled walker - OT - Next Appointment 11/27/23 - OT - OK to Discharge No -HC OT Evaluation Complete Yes -HC User Winter (r) = Recorded By, (t) = Taken By, (c) = Cosigned By Initials Name Effective Dates Stan Johnson, OT 06/02/23 - OT Treatment Row Name 11/27/23 0902 Session Type Treatment - OT Received On 11/27/23 - Safe Environment Arm band checked;Patient found in supine;Gait belt utilized for all out of bed mobility - Subjective Agreeable to Therapy - Family/Caregiver Present No - Precautions Fall risk;Cervical spine - Weight Bearing Restrictions No - Braces/Orthoses Cervical collar [facility] - Precaution Handout Issued No -HC Precaution Comments Verbally reviewed precautions prior to mobility. Pt demonstrated and verbalizedunderstanding. - Pain Assessment 0-10 - Pain Score 5 - Moderate pain - Pain Location Back (Cervical) - Pain Orientation Posterior - Pain Interventions Repositioned;RN Notified RN Damaris - Balance Yes - Dynamic Sitting-Balance Support No upper extremity supported - Dynamic Sitting-Balance Lateral lean;Forward lean;Reaching for objects;Reaching across midline - Dynamic Sitting-Sitting Surface Bed - Dynamic Sitting-Level of Assistance Contact guard - Dynamic Sitting-Comments CGA for balance - Dynamic Standing-Balance Support Bilateral upper extremity supported on ww - Dynamic Standing-Balance Lateral lean;Forward lean;Reaching for objects;Reaching across midline - Dynamic Standing-Standing Surface Floor - Dynamic Standing-Level of Assistance Moderate assistance - Dynamic Standing-Comments Mod A for balance and safety - ADLS (WDL) X -HC Grooming: Where assessed Chair -HC Grooming: Level of assistance Distant Supervision - Grooming: Assistance with Safety Sup for safety - Toileting: Where assessed -- EOB to sim -HC Toileting: Level of assistance Maximum Assist - Toileting: Assistance with Anterior;Posterior;Clothing management down;Clothing management up Max for task -HC Bed Mobility Yes -HC Bed Mobility From 1 Supine -HC Bed Mobility Type 1 To -HC Bed Mobility to 1 Edge of bed -HC Level of Assistance 1 Maximum Assist -HC Bed Mobility Comments 1 Max A for trunk elevation and bringing hips to EOB. -HC Transfer Yes -HC Transfer From 1 Sit -HC Transfer Type 1 To and from -HC Transfer to 1 Stand -HC Technique 1 Stand to sit;Sit to stand -HC Transfer Device 1 Wheeled walker -HC Transfer Level of Assistance 1 Moderate Assist -HC Trials/Comments 1 Mod A for balance and force production -HC Toilet Transfer From Bed -HC Toilet Transfer Type To -HC Toilet Transfer to -- Chair to sim -HC Toilet Transfer Technique Stand pivot -HC Toilet Transfer: Equipment Wheeled walker -HC Toilet Transfers Moderate assistance -HC Toilet Transfers Comments Mod A for balance and force production. -HC Overall Cognitive Status WFL -HC Arousal/Alertness Alert;Appropriate responses to stimuli -HC Attention Span Appears intact -HC Memory Appears intact -HC Current communication Appears Intact -HC Orientation Oriented X4 (person, place, time, situation) -HC Following Commands Follows all commands and directions without difficulty -HC Safety Judgment Good awareness of safety precautions -HC Awareness of Errors Good awareness of errors made -HC Insight Fully aware of deficits - Problem Solving Able to problem solve independently -HC Compliance/Behavior Easy to engage -HC Perseveration Not present -HC Comments Pt seen this date for treatment session focusing on functional transfer training and grooming tasks in preparation for self care tasks. Pt reports high pain levels this date, which limited mobility. RN (Damaris) aware. Pt would benefit from continued skilled therapy services to improve ADLind, balance, and safety. -HC Putting on and taking off regular lower body clothing 2 -HC Bathing 2 -HC Toileting 2 -HC Putting on and taking off upper body clothing 2 -HC Personal Grooming 3 -HC Eating Meals 3 -HC Total Score (range 6-24) 14 -HC Score Interpretation 33.39 -HC Safe Environment End of Therapy Session Patient left supine in bed;Chair alarm in place and activated;RN notified;Call light within reach;Overbed table within reach -HC Problem List Decreased endurance;Decreased balance;Decreased fine motor control;Decreased functional mobility;Decreased gross motor control;Decreased ADL independence;Decreased IADL independence;Decreased upper extremity strength -HC Barriers to Discharge Current Mobility Status;Current ADL Status - Barrier Comments Fall risk - Plan Continue with current plan;If this is the last note, consider this the discharge summary - OT Recommendation Long-Term Facility - Patient at high risk for Falls;Readmission;Injury due to decreased ability to care for self;Injury due to reduced functional status;Injury due to balance deficits - Recommend SNF due to Unable to safely care for self in the home;Risk of injury at home;Skilled therapy needed to address functional deficits;Skilled therapy needed to address care for self in the home - OT Frequency during current admission 5-7x/wk - Treatment/Interventions during current admission ADL/IADL retraining;Balance Training;Bed mobility;Endurance training;Functional activity;Functional mobility training;Functional transfer training - OT Equipment Recommended Wheeled walker - Progress during current admission Slow progress, decreased activity tolerance - OT - Next Appointment 11/28/23 - OT - OK to Discharge No -HC User Winter (r) = Recorded By, (t) = Taken By, (c) = Cosigned By Initials Name Effective Dates Stan Johnson OT 06/02/23 - OT Notes 11/26/2023 9:06 AM Progress Notes signed by Stan Johnson OT 11/27/2023 12:14 PM Progress Notes signed by Stan Johsnon, OT , OT Eval and Treat Last Documented OT ASSESSMENT FLOWSHEET LAST DOCUMENTED (most recent) OT Evaluation - 11/28/23 0715 Pain Assessment Pain Assessment 0-10 Pain Score 7 Patient's Stated Pain Goal No pain Pain Type Surgical pain Cognition Orientation Oriented X4 (person, place, time, situation) OT TREATMENT FLOWSHEET LAST DOCUMENTED (most recent) OT Treatment - 11/28/23 0715 Pain Assessment Pain Assessment 0-10 Pain Score 7 Patient's Stated Pain Goal No pain Pain Type Surgical pain Cognition Orientation Oriented X4 (person, place, time, situation) OT Notes 11/26/2023 9:06 AM Progress Notes signed by Stan Johnson OT 11/27/2023 12:14 PM Progress Notes signed by Stan Johnson, OT , PT Eval and Treat Last 72 Hours PT Evaluation Row Name 11/26/23 5684 Chart Reviewed Yes -VR Session Type Evaluation -VR Safe Environment Arm band checked;Patient found sitting in chair;Session completed bedside;Gait belt utilized for all out of bed mobility -VR Subjective Agreeable to Therapy -VR Subjective Comment states she does not walk, can take a few steps to transfer, primarily uses a WC at home, states she has a lift chair at home -VR Family/Caregiver Present No -VR Physical Therapy-Patient Goal States she wants to be able to go home -VR PT Functional Mobility Interventions: patient educated in precautions and mobility within precautions -VR Precautions Fall risk;Cervical spine -VR Weight Bearing Restrictions No -VR Braces/Orthoses Cervical collar Marcia Blandon cervical collar on -VR Precaution Handout Issued No -VR Type of Home House -VR Home Layout One level;Performs ADLs on one level;Able to live on main level with bedroom/bathroom -VR Home Access Ramped entrance -VR Home Mobility Equipment-Available 4-Wheeled walker;Wheelchair-manual;Lift Chair -VR Home Mobility Equipment-Currently Using 4-Wheeled walker;Lift Chair;Wheelchair- manual -VR Level of [place] Independent with ADLs;Independent with wheelchair;Independent functional transfers -VR Lives With Alone -VR Receives Help From Spouse/Significant other very limited assistance from a family member -VR Fall within the last 6 months No -VR Endurance Tolerates 30 min activity with multiple rests -VR Pain Assessment 0-10 -VR Pain Score 5 - Moderate pain -VR Pain Interventions Repositioned;Elevated;RN Notified RN- Graciela -VR Arousal/Alertness Alert;Appropriate responses to stimuli -VR Attention Span Appears intact;Age appropriate -VR Memory Appears intact -VR Current communication Appears Intact -VR Orientation Oriented X4 (person, place, time, situation) -VR Following Commands Follows all commands and directions without difficulty -VR Safety Judgment Good awareness of safety precautions -VR Awareness of Errors Good awareness of errors made -VR Insight Fully aware of deficits -VR Problem Solving Assistance required to identify errors made;Assistance required to generate solutions;Assistance required to implement solutions -VR Compliance/Behavior Easy to engage -VR Perseveration Not present -VR Light Touch Partial deficits in the LLE;Partial deficits in the RLE -VR Numbness/Tingling Yes in feet and hands -VR Endurance Deficit Yes JHONATHAN- hard -VR Balance Yes -VR Static Sitting-Balance Support No upper extremity supported;Feet supported -VR Static Sitting-Sitting Surface Bed;Chair -VR Static Sitting-Level of Assistance Close supervision -VR Static Standing-Balance Support Bilateral upper extremity supported B hands on handles of wheeled walker -VR Static Standing-Standing Surface Floor -VR Static Standing-Level of Assistance Minimum assistance -VR Bed Mobility Yes -VR Bed Mobility From 2 Edge of bed;Short sit -VR Bed Mobility Type 2 To -VR Bed Mobility to 2 Side lying-left;Supine via log rolling, bed flat -VR Level of Assistance 2 Maximum Assist;Maximal verbal cues;Maximal tactile cues -VR Bed Mobility Comments 2 cues to perform components of task, assistance to bring LEs onto bed surface and control descent/position to the bed -VR Transfer Yes -VR Transfer From 1 Sit -VR Transfer Type 1 To and from -VR Transfer to 1 Stand -VR Technique 1 Sit to stand;Stand to sit -VR Transfer Device 1 Wheeled walker -VR Transfer Level of Assistance 1 Maximum Assist;Maximal verbal cues;Maximal tactile cues -VR Trials/Comments 1 Cues to perform components of task; inadequate force production; delayed extension of hips/knees upon standing, unsteady upon standing; lack of eccentric control to sit -VR Transfer From 2 Chair with arms -VR Transfer Type 2 To -VR Transfer to 2 Bed -VR Technique 2 Stand and step -VR Transfer Device 2 Wheeled walker -VR Transfer Level of Assistance 2 Moderate Assist;Moderate verbal cues;Moderate tactile cues -VR Trials/Comments 2 cues to perform components of task, assistance to maneuver wheeled walker during task, increased time to perform task -VR Functional Ambulation Category 0 -VR Ambulation No -VR Ambulation Comments 1 unable to ambulate distance at this sufficient to perform 10 MWT -VR Stairs No -VR RUE Assessment WFL -VR LUE Assessment WFL -VR RLE Assessment -- LEs are very stiff; R quadriceps are weaker than L LE -VR R Knee Extension 4-/5 -VR LLE Assessment WFL -VR LLE Comments -- very stiff L LE -VR Equipment Use Comments gait belt on for all mobility task -VR How much difficulty does the patient have: Turning over in bed 2 -VR How much difficulty does the patient currently have: Sitting down and standing up from a chair witharms? 2 -VR How much difficulty does the patient have: Moving from lying on back to sitting on the side of the bed? 2 -VR How much difficulty does the patient have: Moving to and from a bed to a chair including wheelchair? 2 -VR How much help does the patient currently need: Walk in hospital room? 1 -VR How much help from another person does the patient currently need: Climbing 3-5 steps with a railing? 1 -VR Total 6 Click Score (range 6-24) 10 -VR Score Interpretation 28.13 -VR Safe Environment End of Therapy Session Patient left supine in bed;Bed alarm in place and activated;RN notified;Call light within reach;Overbed table within reach;Bed in lowest position with wheels locked;Bed rails up per protocol -VR Prognosis Good -VR Problem List Gait deviations;Decreased strength;Decreased range of motion;Decreased endurance;Impaired balance;Decreased mobility;Obesity;Decreased skin integrity;Orthopedic restrictions;Pain;Edema;Postural deficit -VR Problem List Comments PT Diagnosis: patient with C7-T1 spondylolisthesis with myelopathy/radiculopathy/instability, adjacent segment level disease; C5-T2 posterior-lateral arthrodesis, B segmental C5-C6 lateral mass fixation and B T1- T2 pedicle screw fixation, C7-T1 laminectomy presents with deficits in bed mobility, transfers, mobility/ambulation due to impairments in pain, ROM/strength, balance, dependent mobility without use of mobility device. These deficits prevent full participation in home and community mobility for this patient. -VR Barriers to Discharge Current Mobility Status;Inaccessible home environment;Home environment challenged;Decreased caregiver support -VR Plan Plan of care initiated;If this is the last note, consider this the discharge summary -VR PT Recommendation/Plan Inpatient Rehab Facility -VR Patient at high risk for Falls;Readmission;Injury due to decreased ability to care for self;Injury due to reduced functional status;Injury due to balance deficits;Prolonged dependence for self care tasks;Developing secondary complications: poor health management;Difficulty maintaining orthopedic res trictions;Unable to don/doff bracing -VR Recommend Inpatient Rehab/Acute Rehab due to Not at baseline due to impaired ability to complete ADLs;Impaired ability to complete functional mobility;Likely to return to the community at discharge with support system in place;Requires greater than 25% physical assistance with most mobility tasks;Requires multiple therapy disciplines to address functional deficits;Patient and caregiver require specialized skilled training due to new level of function/diagnosis;Requires skilled therapy interventions to address neurological deficits -VR PT Frequency during current admission 5-7x/wk -VR Treatment/Interventions during current admission Balance Training;Bed mobility;Compensatory technique education;Endurance training;Functional activity;Functional transfer training;Gait training;Parent/caregiver training and education;Orthotic management;Positioning;Range of motion;Therapeutic activi ty;Transfer training -VR PT Equipment Recommended -- deferred at this time; to be determined at next level of care -VR PT - OK to Discharge No except to another facility -VR PT Evaluation Complete Yes -VR User Winter (r) = Recorded By, (t) = Taken By, (c) = Cosigned By Initials Name Effective Dates VR Charlene Krishnamurthy, PT 06/14/19 - PT TREATMENT (last 168 hours) PT Treatment Row Name 11/27/23 1625 11/26/23 1133 PT Last Visit Session Type Treatment -VR -- Safe Environment Arm band checked;Patient found in supine;Session completed bedside;Gait belt utilized for all out of bed mobility -VR -- Subjective Agreeable to Therapy -VR -- Subjective Comment Stated she needed to go to the bathroom; states her pain elevated with mobility tasks, informed LU Ocampo of this -VR -- PT Missed Visit Reason -- Unavailable;With other staff/receiving another service -VR Additional Pertinent History -- Attempted to see patient, a [facility] Physician was in the room talking to the patient, will see another time. -VR Family/Caregiver Present No -VR -- Current Functional Status PT Functional Mobility Interventions: patient educated in precautions and mobility within precautions -VR -- Precautions Precautions Fall risk;Cervical spine -VR -- Weight Bearing Restrictions No -VR -- Braces/Orthoses Cervical collar [place]ia cervical collar on -VR -- Precaution Handout Issued No -VR -- Activity Tolerance Endurance Tolerates 10 - 20 min activity with multiple rests -VR -- Pain Assessment Pain Assessment 0-10 -VR -- Pain Score 8 -VR -- Pain Type Surgical pain -VR -- Pain Interventions Repositioned;Elevated;RN Notified LU Ocampo -VR -- Cognition Arousal/Alertness Alert;Appropriate responses to stimuli -VR -- Attention Span Appears intact;Age appropriate -VR -- Memory Appears intact -VR -- Current communication Appears Intact -VR -- Orientation Oriented X4 (person, place, time, situation) -VR -- Following Commands Follows all commands and directions without difficulty -VR -- Safety Judgment Good awareness of safety precautions -VR -- Awareness of Errors Good awareness of errors made -VR -- Insight Fully aware of deficits -VR -- Problem Solving Able to problem solve independently -VR -- Compliance/Behavior Easy to engage -VR -- Perseveration Not present -VR -- Bed Mobility Bed Mobility Yes -VR -- Bed Mobility 1 Bed Mobility From 1 Supine -VR -- Bed Mobility Type 1 To HOB elevated, to her R -VR -- Bed Mobility to 1 Edge of bed;Short sit -VR -- Level of Assistance 1 Moderate Assist;Moderate verbal cues;Moderate tactile cues -VR -- Bed Mobility Comments 1 cues to perform components of task, assistance to get torso to vertical andbring LEs off bed surface -VR -- Transfers Transfer Yes -VR -- Transfer 1 Transfer From 1 Sit -VR -- Transfer Type 1 To and from -VR -- Transfer to 1 Stand -VR -- Technique 1 Sit to stand;Stand to sit -VR -- Transfer Device 1 Wheeled walker -VR -- Transfer Level of Assistance 1 Moderate Assist;Moderate verbal cues;Moderate tactile cues -VR -- Trials/Comments 1 cues to perform components of task, inadequate force production, lack of eccentric control to sit; performed task x2 -VR -- Ambulation Functional Ambulation Category 1 -VR -- Ambulation Yes -VR -- Ambulation 1 Distance (ft) 1 10 + 20 (30) -VR -- Surface 1 Level tile -VR -- Device 1 Wheeled walker -VR -- Assistance 1 Moderate Assist;Moderate verbal cues;Moderate tactile cues -VR -- Gait: Requires assist with 1 Maintaining balance -VR -- Gait: Requires verbal cues to 1 Use assistive device safely;Follow precautions/weight bearing status;Utilize appropriate gait sequencing;Improve upright posture;Pace activity -VR -- Gait Deviations 1 Antalgic;Base of support - decreased;Loreta - decreased;Heel strike - decreased;Hip/knee flexion during swing phase - decreased;Posture - flexed;Stance time - decreased;Step length- decreased;Weight bearing through UE???s - increased -VR -- Quality of Gait 1 very slow speed and step length, reciprocal gait pattern. -VR -- Stairs Stairs No -VR -- Basic Mobility - 6 Click How much difficulty does the patient have: Turning over in bed 2 -VR -- How much difficulty does the patient currently have: Sitting down and standing up from a chair witharms? 2 -VR -- How much difficulty does the patient have: Moving from lying on back to sitting on the side of the bed? 2 -VR -- How much difficulty does the patient have: Moving to and from a bed to a chair including wheelchair? 2 -VR -- How much help does the patient currently need: Walk in hospital room? 2 -VR -- How much help from another person does the patient currently need: Climbing 3-5 steps with a railing? 1 -VR -- Total 6 Click Score (range 6-24) 11 -VR -- Score Interpretation 30.25 -VR -- Safe Environment End of Therapy Session Safe Environment End of Therapy Session Patient left in recliner;Chair alarm in place and activated;RN notified;Call light within reach;Overbed table within reach;Bed in lowest position with wheels locked;Bed rails up per protocol -VR -- Assessment Prognosis Good -VR -- Problem List Gait deviations;Decreased strength;Decreased range of motion;Decreased endurance;Impaired balance;Decreased mobility;Decreased safety awareness;Obesity;Decreased skin integrity;Orthopedic restrictions;Pain;Postural deficit -VR -- Barriers to Discharge Current Mobility Status;Inaccessible home environment;Home environment challenged;Decreased caregiver support -VR -- Plan Plan Continue with current plan;If this is the last note, consider this the discharge summary -VR -- Recommendation/Plan PT Recommendation/Plan Inpatient Rehab Facility -VR -- Patient at high risk for Falls;Readmission;Injury due to decreased ability to care for self;Injury due to reduced functional status;Injury due to balance deficits;Prolonged dependence for self care tasks;Difficulty maintaining orthopedic restrictions;Unable to don/doff bracing -VR -- Recommend Inpatient Rehab/Acute Rehab due to Not at baseline due to impaired ability to complete ADLs;Impaired ability to complete functional mobility;Likely to return to the community at discharge with support system in place;Requires greater than 25% physical assistance with most mobility tasks;Requires multiple therapy disciplines to address functional deficits;Patient and caregiver require specialized skilled training due to new level of function/diagnosis;Requires skilled therapy interventions to address neurological deficits -VR -- PT Frequency during current admission 5-7x/wk -VR -- Treatment/Interventions during current admission Balance Training;Bed mobility;Compensatory technique education;Endurance training;Functional activity;Functional transfer training;Gait training;Orthotic management;Parent/caregiver training and education;Positioning;Therapeutic activity;Transfer training -VR -- PT Equipment Recommended Wheeled walker -VR -- Progress during current admission Slow progress, decreased activity tolerance - VR -- PT - OK to Discharge No except to another facility -VR -- PT Evaluation Complete Yes -VR -- User Winter (r) = Recorded By, (t) = Taken By, (c) = Cosigned By Initials Name Effective Dates VR Charlene Krishnamurthy, PT 06/14/19 - PT Notes 11/26/2023 11:41 AM Progress Notes signed by Charlene Krishnamurthy, PT 11/26/2023 4:16 PM Progress Notes signed by Charlene Krishnamurthy, PT 11/27/2023 5:00 PM Progress Notes signed by Charlene Krishnamurthy, PT , PT Eval and Treat Last Documented OT ASSESSMENT FLOWSHEET LAST DOCUMENTED (most recent) PT Evaluation - 11/28/23 0715 Pain Assessment Pain Assessment 0-10 Pain Score 7 Patient's Stated Pain Goal No pain Pain Type Surgical pain Cognition Orientation Oriented X4 (person, place, time, situation) PT TREATMENT (most recent) PT Treatment - 11/28/23 0715 Pain Assessment Pain Assessment 0-10 Pain Score 7 Patient's Stated Pain Goal No pain Pain Type Surgical pain Cognition Orientation Oriented X4 (person, place, time, situation) PT Notes 11/26/2023 11:41 AM Progress Notes signed by Charlene Krishnamurthy, PT 11/26/2023 4:16 PM Progress Notes signed by Charlene Krishnamurthy, PT 11/27/2023 5:00 PM Progress Notes signed by Charlene Krishnamurthy, PT * [facility] Note - Micheline Robertson RN - 11/28/2023 9:00 AM CDT Images from the original note were not included. Patient Information: Comprehensive Nursing Documentation Attending Provider: Brennan Castillo MD Allergies: No Known Allergies Isolation: None Infection: None Code Status: FULL Ht: 167.6 cm (5' 5.98 ) Wt: 104.3 kg (229 lb 15 oz) Admission Cmt: None Principal Problem: Cervicalgia [M54.2] Elopement Risk Date/Time Risk/Reason for Elopement User 11/24/23 1141 No risk BW 11/24/23 1133 No risk BW Intake/Output 11/25/23 0700 - 11/26/23 0659 11/26/23 0700 - 11/27/23 0659 11/27/23 0700 - 11/28/23 0659 11/28/23 0700 - 11/29/23 0659 Total Total 2344-8453 2496-6143 6890-6243 Total 6397-7252 3884-6207 3565-1494 Total Intake (ml) 267.5 -- 960 293 155 1139 -- -- -- -- Output (ml) 980 2410 353 2615 837 3805 15 -- -- 15 Net (ml) -712.5 -2410 607 -1915 -382 -1690 -15 -- -- -15 Last Weight 104.3 kg (229 lb 15 oz) -- -- -- -- -- -- -- -- -- Patient Lines/Drains/Airways Status Active Airway / Central venous catheter / Drain / Epidural cathether / Intraosseous line / Peripherally inserted central catheter / Peripheral intravenous line / Arterial line Name Placement date Placement time Site Days Closed/Suction/Open Drain 1 Left;Superior Back Bulb 10 Fr. 11/24/23 1740 Back 3 Peripheral IV 11/24/23 18 G Right Antecubital 11/24/23 1205 Antecubital 3 Active Wound Assessment Active Wound / Pressure injury / Ugalde / Negative Pressure Wound / Incision Wound 01/16/22 Anterior;Right Foot Date First Assessed 01/16/22 Site Foot Time First Assessed 1834 Days 680 Present on Hospital Admission: Yes Location Orientation: Anterior;Right Assessments Wound 01/16/22 Left Heel Date First Assessed 01/16/22 Site Heel Time First Assessed 1835 Days 680 Present on Hospital Admission: Yes Location Orientation: Left Assessments Wound 01/16/22 Left Ankle/malleolus Date First Assessed 01/16/22 Site Ankle/malleolus Time First Assessed 1835 Days 680 Location Orientation: Left Assessments Wound 01/16/22 Anterior;Left Foot Date First Assessed 01/16/22 Site Foot Time First Assessed 1836 Days 680 Location Orientation: Anterior;Left Assessments Wound 11/14/23 Skin tear Left Frazier/tibia Date First Assessed 11/14/23 Site Frazier/tibia Time First Assessed 1034 Days 13 Present on Hospital Admission: Yes Wound Type: Skin tear Location Orientation: Left Assessments Row Name 11/28/23 0711/27/23194411/27/2389911/26/231999 Wound Status Evolving Evolving Evolving Evolving Site Assessment Color appropriate for ethnicity -- Color appropriate for ethnicity;Blister/vesicle Blister/vesicle Edelmira-wound Assessment Blanchable erythema -- Blanchable erythema Blanchable erythema Drainage Amount None None -- Scant Drainage Odor -- -- No odor No odor Dressing Status Open to Air Open to Air Open to Air Open to Air Dressing -- -- Open to air ABD Wound 11/24/23 Left;Right Calf reddend Date First Assessed 11/24/23 Site Calf Time First Assessed 1919 Days 3 Location Orientation: Left;Right Wound Description (Comments): reddend Assessments Row Name 11/28/2371411/27/23194411/27/2389911/26/231999 Wound Status Healing Healing Healing Evolving Site Assessment Red -- Red Red;Swelling Drainage Amount None None None None Drainage Odor -- -- No odor No odor Dressing Status -- -- Open to Air -- Dressing -- Open to air -- -- Pressure Ulcer/Pressure Injury 11/25/23 Left Gluteal cleft (vertical crease between the buttocks) Date First Assessed 11/25/23 Site Gluteal cleft (vertical crease between the buttocks) Time First Assessed 1435 Days 2 Present on Hospital Admission: Yes 2 RN Skin Validation (comment name): Arvind Present on Transfer to Nursing Division: from Other (Comment) Pt states wound was present prior to admission Location Orientation: Left Assessments Row Name 11/28/2371411/27/23194411/27/2389911/26/231999 Pressure Ulcer Status Healing Healing Healing Healing Description Non-intact, shallow ulcer (c/w Stage 2, open, no depth, no slough) -- -- Non-intact, shallow ulcer (c/w Stage 2, open, no depth, no slough) Staging Stage 2 -- -- Stage 2 Edelmira-wound Assessment Dry;Intact -- -- Dry Drainage Amount None None -- -- Drainage Odor -- -- No odor No odor Dressing Status Open to air Open to air Open to air -- Dressing/Intervention EPC -- -- -- Surgical Site 11/24/23 Posterior Spine Date First Assessed 11/24/23 Site Spine Time First Assessed 1405 Days 3 Location Orientation: Posterior Assessments Row Name 11/28/23 0715 11/27/23194411/27/2389911/26/231999 Site Assessment Dry;Intact MOOK MOOK MOOK Edelmira-wound Assessment Dry;Intact;Color appropriate for ethnicity MOOK MOOK MOOK Closure Approximated;Wound glue Unable to assess -- Approximated Drainage Amount None None -- Scant Drainage Odor -- -- No odor No odor Dressing Status Clean, dry, intact Clean, dry, intact Clean, dry, intact -- Dressing -- dermabond -- dermabond -- -- Surgical Site 11/24/23 Back Dermabond, Aquacel Date First Assessed 11/24/23 Site Back Time First Assessed 1720 Days 3 Wound Description (Comments): Dermabond, Aquacel Assessments Row Name 11/28/23 0715 11/27/23194411/27/2389911/26/231999 Site Assessment MOOK MOOK Color appropriate for ethnicity;MOOK MOOK Edelmira-wound Assessment MOOK MOOK MOOK MOOK Closure Unable to assess Unable to assess Unable to assess Unable to assess Drainage Amount None None None None Drainage Odor -- -- No odor No odor Dressing Status Clean, dry, intact Clean, dry, intact Clean, dry, intact -- Dressing Other (Comment) aquacell -- Aquacel -- aqacel -- Caldwell Fall Risk Flowsheet Row Most Recent Value Prior Fall Event (Autopopulated from EMR) None found ............filed at 11/28/2023 0715 History of Falling 0 ............filed at 11/28/2023 0715 Secondary Diagnosis 15 ............filed at 11/28/2023 0715 Ambulatory Aids 15 ............filed at 11/28/2023 0715 Intravenous Therapy/Heparin/Saline Lock 20 ............filed at 11/28/2023 0715 Gait/Transferring 0 ............filed at 11/28/2023 0715 Mental Status 0 ............filed at 11/28/2023 0715 Caldwell Fall Risk Score 50 ............filed at 11/28/2023 0715 Vital Signs 11/26 0700 11/27 0659 11/27 0700 11/27 0900 Most Recent Temp (??C) 36.3 - 37.1 36.7 36.7 (98) 11/27 0735 Pulse 64 - 73 66 66 11/27 0735 Resp 16 14 14 11/27 0735 SpO2 (%) 93 - 100 96 96 11/27 0635 BP 123/37 - 159/54 148/63 148/63 11/27 0735 MAP (mmHg) 60 - 89 87 87 11/27 0735 Default Flowsheet Data (most recent) Endurance Tests No documentation. Nursing Nutrition None Nursing Mobility Activity 11/27 0800 Chair 11/27 0715 Chair 11/27 0559 Resting in bed;Sleeping 11/27 0252 Sleeping;Resting in bed 11/26 2331 Resting in bed;Ambulate in room;Bathroom privileges;Dangle;Stand at bedside;Chair 11/26 2020 Chair 11/26 1945 Ambulate in room;Chair 11/26 1920 Ambulate in room;Bathroom privileges 11/26 1742 Chair 11/26 1650 Ambulate in room;Commode 11/26 1622 Resting in bed 11/26 1608 Resting in bed 11/26 1310 Ambulate in room;Resting in bed 11/26 1303 Ambulate in room;Commode 11/26 0944 Chair;Ambulate in room 11/26 0410 Resting in bed;Sleeping 11/26 0017 Resting in bed;Sleeping 11/26 0000 Stand at bedside;Other (Comment) (Comment: Walked to bed from chair) 11/25 1941 Chair 11/25 1833 Chair 11/25 1832 Ambulate in room (Comment: Pt ambulated with walker to recliner) 11/25 1804 Resting in bed 11/25 1709 Resting in bed 11/25 1613 Resting in bed 11/25 1509 Resting in bed 11/25 1505 Ambulate in room 11/25 1403 Chair;Sleeping 11/25 1308 Chair 11/25 1210 Chair 11/25 1101 Chair 11/25 1100 Chair 11/25 1030 Chair 11/25 1029 Ambulate in room (Comment: Ambulate from wheelchair to chair with walker) 11/25 0955 Ambulate in room (Comment: Pt ambulate from recliner to wheelchair with walker) 11/25 0845 Chair 11/25 0840 Chair (Comment: Pt up from wheelchair to recliner) 11/25 0820 Bathroom privileges (Comment: Pt up to wheelchair into bathroom) 11/25 0715 Sleeping;Resting in bed 11/25 0424 Resting in bed;Sleeping 11/25 0100 Turn 11/25 0017 Resting in bed;Sleeping 11/24 1956 Resting in bed 11/24 1618 Resting in bed 11/24 1451 Resting in bed Patient Assistance 11/27 0715 Moderate assist, patient does 50-74% 11/26 2331 Moderate assist, patient does 50-74% 11/26 1310 Modified independent, requires aide device or extra time 11/26 1303 Modified independent, requires aide device or extra time 11/26 0000 Modified independent, requires aide device or extra time 11/25 0845 Contact guard assist, steadying assist Length of Time in Chair (min) 11/26 0000 1 Assistive Device/Equipment Needed 11/27 0715 Walker 11/26 2331 Walker 11/26 1945 Walker;Brace (Comment) (Comment: Marcia Blandon) 11/26 1920 Walker;Brace (Comment) (Comment: Marcia Blandon) 11/26 1650 Walker;Brace (Comment) 11/26 1310 Walker;Brace (Comment) 11/26 1303 Walker;Brace (Comment) 11/26 0944 Walker;Brace (Comment) (Comment: Marcia Blandon) 11/26 0000 Walker 11/25 1029 Walker 11/25 0845 Walker;Gait belt 11/25 0840 Walker Ambulation Response 11/26 1945 Tolerated well 11/26 1920 Tolerated well 11/26 1650 Tolerated well 11/26 1310 Tolerated well 11/26 1303 Tolerated well 11/26 0000 Tolerated well Repositioned 11/27 0715 Turn self 11/26 0000 Right Side 11/25 1613 Semi-fowlers;Pillow support 11/25 0845 Other (Comment);Pillow support (Comment: Repositioned in chair) 11/24 1230 Right Side 11/24 1030 Left Side Head of Bed Elevated 11/26 1310 HOB 30 Range of Motion Interventions 11/27 07 Active;All extremities 11/26 194 Active 11/26 09 Active;All extremities 11/26 1999 Active;All extremities 11/25 0845 Active;All extremities 11/24 1500 Active;All extremities Type of Device 11/27 714 Mechanical compression 11/26 932 Mechanical compression Anti-Embolism Site 11/26 932 Bilateral Mechanical Compression Site 11/27 714 Bilateral 11/27 1999 Bilateral 11/26 09 Bilateral 11/25 0800 Bilateral 11/25 1999 Bilateral Mechanical Compression Type 11/27 714 IPC/SCD 11/27 1999 IPC/SCD 11/26 932 IPC/SCD 11/25 08 IPC/SCD 11/25 1999 IPC/SCD Mechanical Compression Status 11/27 714 Refused 11/27 1999 Refused 11/26 0933 Off 11/25 0800 Off 11/25 1999 On 11/24 1230 Off , Meds and Admin Active Only All Meds/Most Recent Administrations acetaminophen (TYLENOL) tablet 1,000 mg [[id number]] Ordering Provider: Brennan Castillo MD Status: Completed (Past End Date/Time) Ordered On: 11/24/231141 Starts/Ends: 11/24/231214 - 11/24/23 1146 Ordered Dose (Remaining/Total): 1,000 mg (0/1) Route: oral Frequency: Once Ordered Rate/Order Duration: -- / -- Admin Instructions: Administer 60 minutes prior to surgery. Timestamps Action Dose Route Other Information 11/24/23 1146 Given 1,000 mg oral Performed by: Maryanne Barnett RN Scanned Package: 9890-6410-96, 2837-8837-35 gabapentin (NEURONTIN) capsule 300 mg [[id number]] Ordering Provider: Brennan Castillo MD Status: Completed (Past End Date/Time) Ordered On: 11/24/23 1142 Starts/Ends: 11/24/231214 - 11/24/23 1146 Ordered Dose (Remaining/Total): 300 mg (0/1) Route: oral Frequency: Once Ordered Rate/Order Duration: -- / -- Admin Instructions: Administer 60 minutes prior to surgery. Timestamps Action Dose Route Other Information 11/24/23 1146 Given 300 mg oral Performed by: Maryanne Barnett RN Scanned Package: 53046-997-90 ceFAZolin (ANCEF) 2,000 mg/20 mL in sterile water (premix) 2,000 mg [[id number]] Ordering Provider: Brennan Castillo MD Status: Completed (Past End Date/Time) Ordered On: 11/24/23 114 Starts/Ends: 11/24/231214 - 11/24/23 1339 Ordered Dose (Remaining/Total): 2,000 mg (0/1) Route: intravenous Frequency: Once Ordered Rate/Order Duration: 400 mL/hr / 3 Minutes Admin Instructions: Administer within 60 minutes of incision. Timestamps Action Dose Route Other Information 11/24/23 1339 Given 2,000 mg intravenous Performed by: Wagner Madison CRNA vancomycin 1500 mg/515 mL in sodium chloride 0.9% (premix) 1,500 mg [[id number]] Ordering Provider: Brennan Castillo MD Status: Completed (Past End Date/Time) Ordered On: 11/24/23 114 Starts/Ends: 11/24/23 121 - 11/24/23 1401 Ordered Dose (Remaining/Total): 1,500 mg (0/1) Route: intravenous Frequency: Once Ordered Rate/Order Duration: -- / 90 Minutes Admin Instructions: Administer within 120 minutes of incision. Timestamps Action Dose / Duration Route Other Information 11/24/23 1231 Given 1,500 mg 90 Minutes intravenous Performed by: Wagner Madison CRNA Lactated Ringer's (LR) infusion - ADS Override Pull [[id number]] Status: Completed (Past End Date/Time) Ordered On: 11/24/23 1232 Starts/Ends: 11/24/23 1232 - 11/24/23 1421 Ordered Dose (Remaining/Total): -- (0/1) Route: -- Frequency: -- Ordered Rate/Order Duration: -- / -- Admin Instructions: Created by cabinet override Note to pharmacy: Created by cabinet override (No admins scheduled or recorded for this medication) cloNIDine (CATAPRES) tablet 0.1 mg [[id number]] Ordering Provider: Karely Wilkes MD PhD Status: Dispensed Ordered On: 11/25/23 0432 Start: 11/25/23 0900 Ordered Dose (Remaining/Total): 0.1 mg (--/--) Route: oral Frequency: 2 times daily Ordered Rate/Order Duration: -- / -- Timestamps Action Dose Route Other Information 11/27/23 220 Given 0.1 mg oral Performed by: Sindi Cabezas RN Comments: Pt requested to ambulae to BR before BP taken. Scanned Package: 03487-419-53 fluticasone propionate (FLONASE) 50 mcg/actuation nasal spray 2 spray [[id number]] Ordering Provider: Karely Wilkes MD PhD Status: Dispensed Ordered On: 11/25/231803 Start: 11/26/23 0900 Ordered Dose (Remaining/Total): 2 spray (--/--) Route: each nostril Frequency: Daily Ordered Rate/Order Duration: -- / -- Timestamps Action Dose Route Other Information 11/26/23 1029 Given 2 spray each nostril Performed by: Graciela Pink RN Scanned Package: [address]-2 gabapentin (NEURONTIN) capsule 100 mg [[id number]] Ordering Provider: Karely Wilkes MD PhD Status: Dispensed Ordered On: 11/24/232050 Start: 11/24/232129 Ordered Dose (Remaining/Total): 100 mg (--/--) Route: oral Frequency: 3 times daily Ordered Rate/Order Duration: -- / -- Timestamps Action Dose Route Other Information 11/27/232150 Given 100 mg oral Performed by: Sindi Cabezas RN Scanned Package: 16437-228-19 simvastatin (ZOCOR) tablet 40 mg [[id number]] Ordering Provider: Karely Wilkes MD PhD Status: Dispensed Ordered On: 11/25/231803 Start: 11/25/23 2100 Ordered Dose (Remaining/Total): 40 mg (--/--) Route: oral Frequency: Nightly Ordered Rate/Order Duration: -- / -- Timestamps Action Dose Route Other Information 11/27/232150 Given 40 mg oral Performed by: Sindi Cabezas RN Scanned Package: 84879-162-08 sodium chloride 0.9% flush 0.5-20 mL [[id number]] Ordering Provider: Karely Wilkes MD PhD Status: Verified Ordered On: 11/25/231803 Start: 11/25/232199 Ordered Dose (Remaining/Total): 0.5-20 mL (--/--) Route: intra-catheter Frequency: Every 8 hours scheduled Ordered Rate/Order Duration: -- / -- Admin Instructions: Flush volume based on line type and size. Timestamps Action Dose Route Other Information 11/27/23 0635 Given 10 mL intra-catheter Performed by: Ryan Schulte RN sodium chloride 0.9% flush 0.5-20 mL [[id number]] Ordering Provider: Karely Wilkes MD PhD Status: Verified Ordered On: 11/25/231803 Start: 11/25/231803 Ordered Dose (Remaining/Total): 0.5-20 mL (--/--) Route: intra-catheter Frequency: As needed Ordered Rate/Order Duration: -- / -- Admin Instructions: Flush volume based on line type and size. Flush before and after each use. (No admins scheduled or recorded for this medication) Carrier Fluids for Secondary Infusion - 0.9% Sodium Chloride [[id number]] Ordering Provider: Karely Wilkes MD PhD Status: Verified Ordered On: 11/25/231803 Start: 11/25/231803 Ordered Dose (Remaining/Total): 30 mL (--/--) Route: intravenous Frequency: As needed Ordered Rate/Order Duration: -- / -- Admin Instructions: 0-250 ml/hr to flush line after IV infusions when no maintenance IV ordered. Infuse 30mL at the same rate as the secondary infusion. Run as primary IV, not intended for KVO. (No admins scheduled or recorded for this medication) sodium chloride 0.9% flush 0.5-20 mL [[id number]] Ordering Provider: Karely Wilkes MD PhD Status: Verified Ordered On: 11/25/231803 Start: 11/25/232199 Ordered Dose (Remaining/Total): 0.5-20 mL (--/--) Route: intra-catheter Frequency: Every 8 hours scheduled Ordered Rate/Order Duration: -- / -- Admin Instructions: Flush volume based on line type and size. Timestamps Action Dose Route Other Information 11/28/23 06 Given 5 mL intra-catheter Performed by: Sindi Cabezas RN Scanned Package: [id number] sodium chloride 0.9% flush 0.5-20 mL [[id number]] Ordering Provider: Karely Wilkes MD PhD Status: Verified Ordered On: 11/25/231803 Start: 11/25/231803 Ordered Dose (Remaining/Total): 0.5-20 mL (--/--) Route: intra-catheter Frequency: As needed Ordered Rate/Order Duration: -- / -- Admin Instructions: Flush volume based on line type and size. Flush before and after each use. (No admins scheduled or recorded for this medication) Carrier Fluids for Secondary Infusion - 0.9% Sodium Chloride [[id number]] Ordering Provider: Karely Wilkes MD PhD Status: Verified Ordered On: 11/25/231803 Start: 11/25/231803 Ordered Dose (Remaining/Total): 30 mL (--/--) Route: intravenous Frequency: As needed Ordered Rate/Order Duration: -- / -- Admin Instructions: 0-250 ml/hr to flush line after IV infusions when no maintenance IV ordered. Infuse 30mL at the same rate as the secondary infusion. Run as primary IV, not intended for KVO. (No admins scheduled or recorded for this medication) acetaminophen (TYLENOL) tablet 1,000 mg [[id number]] Ordering Provider: Karely Wilkes MD PhD Status: Dispensed Ordered On: 11/25/231803 Start: 11/25/231844 Ordered Dose (Remaining/Total): 1,000 mg (--/--) Route: oral Frequency: Every 6 hours scheduled Ordered Rate/Order Duration: -- / -- Timestamps Action Dose Route Other Information 11/28/23599 Given 1,000 mg oral Performed by: Sindi Cabezas RN Scanned Package: [id number], 5201-2870-14 ondansetron ODT (ZOFRAN-ODT) disintegrating tablet 4 mg [[id number]] Ordering Provider: Karely Wilkes MD PhD Status: Verified Ordered On: 11/25/231803 Start: 11/25/231803 Ordered Dose (Remaining/Total): 4 mg (--/--) Route: oral Frequency: Every 6 hours PRN Ordered Rate/Order Duration: -- / -- (No admins scheduled or recorded for this medication) ondansetron (ZOFRAN) injection 4 mg [[id number]] Ordering Provider: Karely Wilkes MD PhD Status: Verified Ordered On: 11/25/231803 Start: 11/25/231803 Ordered Dose (Remaining/Total): 4 mg (--/--) Route: intravenous Frequency: Every 6 hours PRN Ordered Rate/Order Duration: -- / 2 Minutes (No admins scheduled or recorded for this medication) polyethylene glycol (MIRALAX) packet 17 g [[id number]] Ordering Provider: Karely Wilkes MD PhD Status: Dispensed Ordered On: 11/25/231803 Start: 11/25/231844 Ordered Dose (Remaining/Total): 17 g (--/--) Route: oral Frequency: Daily Ordered Rate/Order Duration: -- / -- Admin Instructions: Hold for diarrhea. Timestamps Action Dose Route Other Information 11/27/23 0945 Given 17 g oral Performed by: Damaris Hummel RN Scanned Package: [id number] senna-docusate (PERICOLACE) 8.6-50 mg per tablet 2 tablet [[id number]] Ordering Provider: Karely Wilkes MD PhD Status: Dispensed Ordered On: 11/25/231803 Start: 11/25/232099 Ordered Dose (Remaining/Total): 2 tablet (--/--) Route: oral Frequency: 2 times daily Ordered Rate/Order Duration: -- / -- Admin Instructions: Hold for diarrhea. Timestamps Action Dose Route Other Information 11/27/232150 Given 2 tablet oral Performed by: Sindi Cabezas RN Scanned Package: 4041-6277-50, 1881-8643-15 bisacodyL (DULCOLAX) suppository 10 mg [[id number]] Ordering Provider: Karely Wilkes MD PhD Status: Verified Ordered On: 11/25/231803 Start: 11/25/231803 Ordered Dose (Remaining/Total): 10 mg (--/--) Route: rectal Frequency: Daily PRN Ordered Rate/Order Duration: -- / -- (No admins scheduled or recorded for this medication) famotidine (PEPCID) tablet 20 mg [[id number]] Ordering Provider: Karely Wilkes MD PhD Status: Dispensed Ordered On: 11/25/23431 Start: 11/25/23899 Ordered Dose (Remaining/Total): 20 mg (--/--) Route: oral Frequency: 2 times daily Ordered Rate/Order Duration: -- / -- Timestamps Action Dose Route Other Information 11/27/232151 Given 20 mg oral Performed by: Sindi Cabezas RN enoxaparin (LOVENOX) syringe 30 mg [[id number]] Ordering Provider: Karely Wilkes MD PhD Status: Dispensed Ordered On: 11/25/231803 Start: 11/25/232099 Ordered Dose (Remaining/Total): 30 mg (--/--) Route: subcutaneous Frequency: Daily (for enoxaparin) Ordered Rate/Order Duration: -- / -- Timestamps Action Dose Route / Site Other Information 11/27/232151 Given 30 mg subcutaneous Left Lower Abdomen Performed by: Sindi Cabezas RN Scanned Package: [id number] ceFAZolin (ANCEF) 2,000 mg/20 mL in sterile water (premix) 2,000 mg [[id number]] Ordering Provider: Karely Wilkes MD PhD Status: Completed (Past End Date/Time) Ordered On: 11/24/232050 Starts/Ends: 11/24/232199 - 11/25/23 0614 Ordered Dose (Remaining/Total): 2,000 mg (0/2) Route: intravenous Frequency: Every 8 hours Ordered Rate/Order Duration: 400 mL/hr / 3 Minutes Admin Instructions: Beginning 8 hours after last edelmira-procedural dose. Line Med Link Info Comment Peripheral IV 11/24/23 18 G Right Antecubital 11/25/23 0611 by Jeaneth Reaves RN -- Timestamps Action Dose / Rate / Duration Route Other Information 11/25/23 0611 Given 2,000 mg 400 mL/hr 3 Minutes intravenous Performed by: Jeaneth Reaves RN vancomycin 1500 mg/515 mL in sodium chloride 0.9% (premix) 1,500 mg [[id number]] Ordering Provider: Karely Wilkes MD PhD Status: Completed (Past End Date/Time) Ordered On: 11/24/232050 Starts/Ends: 11/25/23 0100 - 11/25/23 0258 Ordered Dose (Remaining/Total): 1,500 mg (0/1) Route: intravenous Frequency: Once Ordered Rate/Order Duration: -- / 90 Minutes Admin Instructions: Administer 12 hours after last pre-operative dose. Timestamps Action Dose / Duration Route Other Information 11/25/23 0128 New Bag 1,500 mg 90 Minutes intravenous Performed by: Nhung Bose RN oxyCODONE (ROXICODONE) tablet 5 mg [[id number]] Ordering Provider: Karely Wilkes MD PhD Status: Dispensed Ordered On: 11/25/23 043 Start: 11/25/23 043 Ordered Dose (Remaining/Total): 5 mg (--/--) Route: oral Frequency: Every 4 hours PRN Ordered Rate/Order Duration: -- / -- Timestamps Action Dose Route Other Information 11/28/23 0605 Given 5 mg oral Performed by: Sindi Cabezas RN Scanned Package: 42527-367-90 sodium chloride 0.9% IVPB 0-250 mL [[id number]] Ordering Provider: Karely Wilkes MD PhD Status: Completed (Past End Date/Time) Ordered On: 11/24/231818 Starts/Ends: 11/24/23 190 - 11/24/23 184 Ordered Dose (Remaining/Total): 0-250 mL (0/1) Route: intravenous Frequency: Once Ordered Rate/Order Duration: -- / -- Admin Instructions: Prime blood tubing and administer amount needed to clear line (usually 50-100 mL) after transfusion complete. Timestamps Action Dose Route Other Information 11/24/231845 New Bag 250 mL intravenous Performed by: Nhung Bose RN Scanned Package: 7763-1308-98 dextrose gel in packet 15 g [[id number]] Ordering Provider: Karely Wilkes MD PhD Status: Verified Ordered On: 11/24/231931 Start: 11/24/231931 Ordered Dose (Remaining/Total): 15 g (--/--) Route: oral Frequency: Every 15 min PRN Ordered Rate/Order Duration: -- / -- Admin Instructions: If patient is alert and able to eat/drink, give 15 gm glucose or one juice (4 fluid ounces) NOT ORANGE JUICE. After treatment for hypoglycemia, recheck BG followed by treatment every 15 minutes until the BG is greater than 100 mg/dL. Then check BG 1 hour post-treatment. If BG isless than 100 mg/dL, repeat Q15 minute BG checks and treatment. Call MD for each episode of hypoglycemia. (No admins scheduled or recorded for this medication) dextrose (D10W) 10% bolus 250 mL [[id number]] Ordering Provider: Karely Wilkes MD PhD Status: Verified Ordered On: 11/24/231931 Start: 11/24/231931 Ordered Dose (Remaining/Total): 250 mL (--/--) Route: intravenous Frequency: Every 15 min PRN Ordered Rate/Order Duration: 1,000 mL/hr / 15 Minutes Admin Instructions: After treatment for hypoglycemia, recheck BG followed by treatment every 15 minutes until the BG is greater than 100 mg/dL. Then check BG 1 hour post treatment. If BG is less [id number] mg/dL, repeat Q15 minute BG checks and treatment. Call MD for each episode of hypoglycemia. (No admins scheduled or recorded for this medication) glucagon injection 1 mg [[id number]] Ordering Provider: Karely Wilkes MD PhD Status: Verified Ordered On: 11/24/231931 Start: 11/24/231931 Ordered Dose (Remaining/Total): 1 mg (--/--) Route: intramuscular Frequency: Every 30 min PRN Ordered Rate/Order Duration: -- / -- Admin Instructions: After Glucagon is administered, position patient on side if possible to avoid aspiration. Obtain IV access. Follow glucagon treatment with glucose treatment or IV dextrose. After treatment for hypoglycemia, recheck BG followed by treatment every 15 minutes until the BG isgreater than 100 mg/dL. Then check BG 1 hour post treatment. If BG is less than 100 mg/dL, repeat Q15 minute BG checks and treatment. Call MD for each episode of hypoglycemia. Reconstitute 1 mg vial with 1 mL SWFI. Use immediately following reconstitution. (No admins scheduled or recorded for this medication) albuterol HFA (PROVENTIL HFA,VENTOLIN HFA,PROAIR HFA) 90 mcg/actuation inhaler 2 puff [[id number]] Ordering Provider: Brennan Castillo MD Status: Verified Ordered On: 11/25/231814 Start: 11/25/231813 Ordered Dose (Remaining/Total): 2 puff (--/--) Route: inhalation Frequency: Every 6 hours PRN (emergency response coordinator) Ordered Rate/Order Duration: -- / -- (No admins scheduled or recorded for this medication) insulin lispro (HumaLOG, ADMELOG) 100 unit/mL injection 0-5 Units [[id number]] Ordering Provider: Melva Lilly MD Status: Dispensed Ordered On: 11/25/23 2242 Start: 11/26/23 0800 Ordered Dose (Remaining/Total): 0-5 Units (--/--) Route: subcutaneous Frequency: 3 times daily with meals Ordered Rate/Order Duration: -- / -- Admin Instructions: Blood glucose mg/dL: 149 or less: No insulin 150-199: add 1 unit 200-249: add 2 units 250-299: add 3 units 300-349: add 4 units and notify physician for adjustment of insulin orders. 350-399: add 5 units and notify physician for adjustment of insulin orders. Over 400: Notify physician for adjustment of insulin orders. Do NOT hold for NPO Status Timestamps Action Dose Route / Site Other Information 11/27/23 0946 Given 1 Units subcutaneous Left Lower Abdomen Performed by: Damaris Hummel RN Scanned Package: 3613-2440-69 insulin lispro (HumaLOG, ADMELOG) 100 unit/mL injection 0-4 Units [[id number]] Ordering Provider: Melva Lilly MD Status: Dispensed Ordered On: 11/25/232241 Start: 11/25/232314 Ordered Dose (Remaining/Total): 0-4 Units (--/--) Route: subcutaneous Frequency: Nightly Ordered Rate/Order Duration: -- / -- Admin Instructions: Blood glucose mg/dL: 199 or less: No insulin 200-249: add 1 unit 250-299: add 2 units 300-349: add 3 units and notify physician for adjustment of insulin orders. 350- 399: add 4 units and notify physician for adjustment of insulin orders. Over 400: Notify physician for adjustment of insulin orders. Do NOT hold for NPO Status Timestamps Action Dose Route / Site Other Information 11/25/232310 Given 1 Units subcutaneous Left Lower Abdomen Performed by: Juice Griffiths RN Scanned Package: 3240-9968-48 methocarbamoL (ROBAXIN) tablet 500 mg [[id number]] Ordering Provider: Jef Rock NP Status: Dispensed Ordered On: 11/26/23941 Start: 11/26/231014 Ordered Dose (Remaining/Total): 500 mg (--/--) Route: oral Frequency: 3 times daily Ordered Rate/Order Duration: -- / -- Timestamps Action Dose Route Other Information 11/27/232151 Given 500 mg oral Performed by: Sindi Cabezas RN Scanned Package: 88459-420-06 cyclobenzaprine (FLEXERIL) tablet 5 mg [[id number]] Ordering Provider: Jef Rock NP Status: Dispensed Ordered On: 11/26/23941 Start: 11/26/23941 Ordered Dose (Remaining/Total): 5 mg (--/--) Route: oral Frequency: 3 times daily PRN Ordered Rate/Order Duration: -- / -- Timestamps Action Dose Route Other Information 11/28/23 0021 Given 5 mg oral Performed by: Sindi Cabezas RN Scanned Package: 10756-567-31 insulin lispro (HumaLOG, ADMELOG) 100 unit/mL injection 6 Units [[id number]] Ordering Provider: Melva Lilly MD Status: Dispensed Ordered On: 11/26/231957 Start: 11/27/23 0800 Ordered Dose (Remaining/Total): 6 Units (--/--) Route: subcutaneous Frequency: 3 times daily with meals Ordered Rate/Order Duration: -- / -- Admin Instructions: If BG greater than or equal to 100 mg/dL, give dose with meals when tray arrives in the room. If BG less than 100 mg/dL or history of poor intake, give after meals. If patient eating less than 50% of meal, call MD for holding or reducing meal insulin dose. Hold prandial insulin if NPO, unable to eat, or if BG less than 70 mg/dL. Timestamps Action Dose Route / Site Other Information 11/27/23 1739 Given 6 Units subcutaneous Left Upper Abdomen Performed by: Damaris Hummel RN Scanned Package: 3550-0179-03 furosemide (LASIX) tablet 40 mg [[id number]] Ordering Provider: Roseline Burciaga NP Status: Dispensed Ordered On: 11/27/23 1149 Start: 11/27/23 1230 Ordered Dose (Remaining/Total): 40 mg (--/--) Route: oral Frequency: Daily Ordered Rate/Order Duration: -- / -- Timestamps Action Dose Route Other Information 11/27/23 1252 Given 40 mg oral Performed by: Damaris Hummel RN Scanned Package: 33519-628-86 insulin glargine (LANTUS, SEMGLEE) 100 unit/mL injection 15 Units [[id number]] Ordering Provider: Anni Sanchez MD Status: Dispensed Ordered On: 11/27/231803 Start: 11/27/23 2100 Ordered Dose (Remaining/Total): 15 Units (--/--) Route: subcutaneous Frequency: Nightly Ordered Rate/Order Duration: -- / -- Admin Instructions: Do not hold if NPO. Decreased per Endo on 11/27/2023 Do not mix with other insulins Timestamps Action Dose Route / Site Other Information 11/27/232 Given 15 Units subcutaneous Left Lower Abdomen Performed by: Sindi Cabezas RN Scanned Package: 21690-309-81 , Wound Info Only Active Wound Assessment Active Wound / Pressure injury / [place] / Negative Pressure Wound / Incision Wound 01/16/22 Anterior;Right Foot Date First Assessed 01/16/22 Site Foot Time First Assessed 1834 Days 680 Present on Hospital Admission: Yes Location Orientation: Anterior;Right Assessments Wound 01/16/22 Left Heel Date First Assessed 01/16/22 Site Heel Time First Assessed 1835 Days 680 Present on Hospital Admission: Yes Location Orientation: Left Assessments Wound 01/16/22 Left Ankle/malleolus Date First Assessed 01/16/22 Site Ankle/malleolus Time First Assessed 1835 Days 680 Location Orientation: Left Assessments Wound 01/16/22 Anterior;Left Foot Date First Assessed 01/16/22 Site Foot Time First Assessed 1836 Days 680 Location Orientation: Anterior;Left Assessments Wound 11/14/23 Skin tear Left Frazier/tibia Date First Assessed 11/14/23 Site Frazier/tibia Time First Assessed 1034 Days 13 Present on Hospital Admission: Yes Wound Type: Skin tear Location Orientation: Left Assessments Row Name 11/28/23 0715 11/27/23194411/27/23 0900 11/26/231999 Wound Status Evolving Evolving Evolving Evolving Site Assessment Color appropriate for ethnicity -- Color appropriate for ethnicity;Blister/vesicle Blister/vesicle Edelmira-wound Assessment Blanchable erythema -- Blanchable erythema Blanchable erythema Drainage Amount None None -- Scant Drainage Odor -- -- No odor No odor Dressing Status Open to Air Open to Air Open to Air Open to Air Dressing -- -- Open to air ABD Wound 11/24/23 Left;Right Calf reddend Date First Assessed 11/24/23 Site Calf Time First Assessed 1919 Days 3 Location Orientation: Left;Right Wound Description (Comments): reddend Assessments Row Name 11/28/23 0715 11/27/23194411/27/23 0911/26/231999 Wound Status Healing Healing Healing Evolving Site Assessment Red -- Red Red;Swelling Drainage Amount None None None None Drainage Odor -- -- No odor No odor Dressing Status -- -- Open to Air -- Dressing -- Open to air -- -- Pressure Ulcer/Pressure Injury 11/25/23 Left Gluteal cleft (vertical crease between the buttocks) Date First Assessed 11/25/23 Site Gluteal cleft (vertical crease between the buttocks) Time First Assessed 1435 Days 2 Present on Hospital Admission: Yes 2 RN Skin Validation (comment name): Arvind Present on Transfer to Nursing Division: from Other (Comment) Pt states wound was present prior to admission Location Orientation: Left Assessments Row Name 11/28/2371411/27/23194411/27/2389911/26/231999 Pressure Ulcer Status Healing Healing Healing Healing Description Non-intact, shallow ulcer (c/w Stage 2, open, no depth, no slough) -- -- Non-intact, shallow ulcer (c/w Stage 2, open, no depth, no slough) Staging Stage 2 -- -- Stage 2 Edelmira-wound Assessment Dry;Intact -- -- Dry Drainage Amount None None -- -- Drainage Odor -- -- No odor No odor Dressing Status Open to air Open to air Open to air -- Dressing/Intervention EPC -- -- -- Surgical Site 11/24/23 Posterior Spine Date First Assessed 11/24/23 Site Spine Time First Assessed 1405 Days 3 Location Orientation: Posterior Assessments Row Name 11/28/2371411/27/23194411/27/2389911/26/231999 Site Assessment Dry;Intact MOOK MOOK MOOK Edelmira-wound Assessment Dry;Intact;Color appropriate for ethnicity MOOK MOOK MOOK Closure Approximated;Wound glue Unable to assess -- Approximated Drainage Amount None None -- Scant Drainage Odor -- -- No odor No odor Dressing Status Clean, dry, intact Clean, dry, intact Clean, dry, intact -- Dressing -- dermabond -- dermabond -- -- Surgical Site 11/24/23 Back Dermabond, Aquacel Date First Assessed 11/24/23 Site Back Time First Assessed 1720 Days 3 Wound Description (Comments): Dermabond, Aquacel Assessments Row Name 11/28/2371411/27/23194411/27/2389911/26/231999 Site Assessment MOOK MOOK Color appropriate for ethnicity;MOOK MOOK Edelmira-wound Assessment MOOK MOOK MOOK MOOK Closure Unable to assess Unable to assess Unable to assess Unable to assess Drainage Amount None None None None Drainage Odor -- -- No odor No odor Dressing Status Clean, dry, intact Clean, dry, intact Clean, dry, intact -- Dressing Other (Comment) aquacell -- Aquacel -- aqacel -- * Plan of Care - Shannan Bose RN - 11/28/2023 8:15 AM CDT Problem: Lack of Knowledge Goal: Ability to develop a pain control plan will improve Outcome: Progressing Flowsheets (Taken 11/28/2023714) Ability to develop a pain control plan will improve: Explain causes of pain and how long pain can be expected to last Teach information regarding pain management Educate pain scale for assessing level of pain Teach notification to healthcare provider of episodes of pain Problem: Medication Goal: Satisfaction with pain management medication regimen will improve Outcome: Progressing Flowsheets (Taken 11/28/2023714) Satisfaction with pain management medication regimen will improve: Assess satisfaction with pain management regimen Evaluate medication effects Problem: Sensory Goal: Ability to identify factors that increase pain levels will improve while working to decrease the patient's pain levels Outcome: Progressing Flowsheets (Taken 11/28/2023714) Ability to identify factors that increase pain levels will improve while working to decrease patients pain levels: Assess pain status Observe non-verbal cues of discomfort, such as restlessness, muscle tension, or altered vital signs Problem: Coping Goal: Ability to cope will improve Outcome: Progressing Flowsheets (Taken 11/28/2023714) Ability to cope will Improve: Encourage vebalization of feelings surrounding pain Provide emotional support Problem: Health Behavior Goal: Identification of resources available to assist in meeting health care needs will improve Outcome: Progressing Flowsheets (Taken 11/28/2023714) Identification of resources available to assist in meeting health care needs will improve: Collaborate with all therapies Problem: Skin Integrity Impairment Risk Goal: Mobility will improve Outcome: Progressing Flowsheets (Taken 11/28/2023714) Mobility will improve: Encourage mobilization to extent of ability, assist with range of motion as needed Encourage turning and repositioning, assist as needed Assess circulation, sensation and/or motion of extremity Encourage ambulation Collaborate with physical therapy Goal: Understanding of ways to prevent future skin breakdown will improve Outcome: Progressing Flowsheets (Taken 11/28/2023714) Understanding of ways to prevent future skin breakdown will improve: Discuss treatments to protect skin integrity Goal: Nutritional status will improve Outcome: Progressing Flowsheets (Taken 11/28/2023714) Nutritional status will improve: Assess nutritional status Encourage nutritional intake Monitor intake and output Encourage fluid intake Goal: Risk for impaired skin integrity will decrease Outcome: Progressing Flowsheets (Taken 11/28/2023714) Risk for impaired skin integrity will decrease: Identify risk factors for impaired skin integrity and/or pressure injuries Monitor skin integrity, appearance and temperature Implement precautions to protect skin integrity Protect skin from pressure due to medical devices when appropriate Problem: Fall Risk Goal: Ability to state ways to decrease the risk of falls will improve Outcome: Progressing Flowsheets (Taken 11/28/2023714) Ability to state ways to decrease the risk of falls will improve: Teach fall prevention measures Teach information regarding appropriate enviornmental changes Goal: Will remain free from falls Outcome: Progressing Flowsheets (Taken 11/28/2023714) Will remain free from falls: Assess risk factors for falls Implement fall prevention measures Collaborate with other disciplines Goal: Will remain free from injury from falls Outcome: Progressing Flowsheets (Taken 11/28/2023714) Will remain free from injury from falls: Provide safe environment for conduction of activities of daily living in hospital environment Problem: Discharge Planning Goal: Understanding discharge needs will improve Outcome: Progressing Flowsheets (Taken 11/28/2023714) Understanding of discharge needs will improve: Discuss information regarding discharge instructions Identify discharge learning needs (meds, wound care, etc.) Goals: Clinical Goals for the Shift: monitor vs, drain output, io's. pain management. increase activity astolerated. up to chair for meals. ambulate 3x/day. Summary: * Plan of Care - Micheline Robertson RN - 11/27/2023 3:11 PM CDT Per Medical Chart/Rounds/IDR: 73 y/o female s/p C5-T2 PCDF. ADD: 11/30 Plan & referrals made/in place: IRF list given to patient 11/26. Patient wants the night to think about where she would like referrals to be sent. CM to follow up 5/17 AM. Patient will need insurance auth once there is an accepting IRF. Support following discharge: sister Italia ([phone]) Transportation: [facility] to be arranged by CM at dc F/U Appointments: Jan 07, 2024 12:30 PM -Return with Brennan Castillo MD [facility] Neurosurgery Patient's Identified Problem/Goal Problem: Ensure acute medical needs are met and that patient has a safe discharge plan. Goal: Secure a discharge plan that patient/family are agreeable with and ensure patient has continuum of care. Patient and/or family are agreeable with plan. geothermal production manager will continue to follow and assist with discharge planning as needed. If any further discharge needs arise, please contact the covering heel caser. * Consults, Subsequent - Angeles Jiménez MD - 11/27/2023 2:14 PM CDT Endocrinology & Diabetes Consult Note Patient: Criss Ly, 73 y.o. female (: 1950) Room: [place] [address]/[place] [address] ( ) LOS: 3 Consult Question: diabetes management (Requesting Provider: Brennan Castillo MD) Criss Ly is a 73 y.o. female with PMHx of T2D, multilevel anterior cervical diskectomy, obesity, sarcoidosis who was admitted for posterior spinal fusion of C5-T2 and b/l foraminotomies on 11/23. Endocrinology is consulted for inpatient diabetes management. Interval events Patient seen and examine at bedside. On ros she denied chest pain, abd pain, n/v. TDD 35 Fasting BS 198 Diet: Adult Diet Restricted; Consistent Carbohydrate Recent Labs Lab Units 11/27/23 1213 11/27/23 0749 11/26/23 2244 11/26/23 1944 11/26/23 1718 11/26/23 1153 11/26/23 0809 11/26/23 0122 11/25/23200611/25/23 1641 GLUCOSE mg/dL -- -- 194 -- -- -- -- -- -- -- POC GLUCOSE MONITOR mg/dL 139 198 -- 191 208* 169 157 185 217* 181 Lab Results Component Value Date HGBA1C 7.6 (H) 11/14/2023 PMH & PSH She has a past medical history of Asthma, Benign hypertension with CKD (chronic kidney disease) stage III (HCC), Gastroesophageal reflux disease, OTHER MEDICAL, OTHER MEDICAL, OTHER MEDICAL, OTHER MEDICAL (2007), OTHER MEDICAL, OTHER MEDICAL, OTHER MEDICAL, OTHER MEDICAL, OTHER MEDICAL, OTHER MEDICAL, OTHER MEDICAL, OTHER MEDICAL, OTHER MEDICAL, Hyperlipidemia, Hypertension, Lumbar stenosis, Osteoarthritis, Osteoporosis, Polyp of colon, Sarcoidosis, Type 2 diabetes mellitus (HCC), Type 2 diabetes mellitus with diabetic autonomic (poly)neuropathy (HCC), Type 2 diabetes mellitus with hyperglycemia (CMS/HCC) (HCC), and Type II diabetes mellitus with stage 3 chronic kidney disease (HCC). She has a past surgical history that includes Total knee arthroplasty (Left, 09/27/2005); Total knee arthroplasty (Right, 08/27/2001); Back surgery (08/14/2006); Tonsillectomy; Lumbar spine surgery; Other surgical history; Reduction mammaplasty (Bilateral, 2008); Colonoscopy (09/15/2013); Back surgery (03/25/2022); Total hip arthroplasty (Left, 02/05/2016); and Neck surgery (06/2008). Social & Family History She reports that she has never smoked. She has been exposed to tobacco smoke. She has never used smokeless tobacco. She reports that she does not use drugs. Patient denies consuming alcoholic drinks. Her family history includes Cancer in her brother; Colon cancer in her father; Diabetes in her brother and mother; Heart disease in her father; Heart failure in her father; Hypertension in her brother and mother; Lymphoma in her brother; Stroke in her brother. Review of Systems Twelve point ROS reviewed and negative except as noted in HPI. All other systems negative. Vitals & Physical Exam Temp: [36.3 ??C (97.3 ??F)-36.9 ??C (98.4 ??F)] 36.8 ??C (98.2 ??F) Pulse: [69-73] 73 BP: (123-145)/(37-62) 127/56 Resp: [16] 16 SpO2: [93 %-100 %] 97 % Body mass index is 37.13 kg/m??. I/O this shift: In: 960 [P.O.:950; I.V.:10] Out: 353 [Urine:333; Drains:20] Physical Exam Gen : no acute distress, alert, appropriate, cooperative, appears stated age, well-developed, well-nourished HENT : in neck brace Eyes : conjunctiva clear, anicteric Pulm : non-labored, on room air Abd : soft, non-tender, non-distended Extr : lower extremity lymphedema with redness and some blistering on L leg Skin : turgor normal, no rashes/wounds/lesions Neuro : alert, speech fluent, comprehension intact, moving all extremities Psych : cooperative, appropriate affect & mood, good insight & judgment Data Medications, labs, imaging, and diagnostics independently reviewed in Epic and commented on below. Lab Results Component Value Date TSH 2.10 11/27/2021 FREET4 1.42 02/09/2021 Lab Results Component Value Date CHOL 134 09/17/2023 TRIG 121 09/17/2023 HDL 45 09/17/2023 LDLCALC 65 09/17/2023 Lab Results Component Value Date PTH 103 (H) 09/28/2021 25HYDROVITD 31 11/14/2023 Lab Results Component Value Date HGBA1C 7.6 (H) 11/14/2023 Assessment & Plan # Type 2 Diabetes Mellitus, Uncontrolled, complicated by Nephropathy: CKD3, Peripheral Neuropathy, and At Risk of Macrovascular Complications Current HbA1c and reliability: 7.6, unreliable iso blood transfusion HbA1c goal based on comorbidities: <7 Diabetes Provider: PCP Insurance: Payor: [employer] HEALTHCARE / Plan: [employer] HEALTHCARE / Product Type: MEDICARE RISK OTHER/ Home regimen: lantus 20 units qhs + lispro 15 units with meals + ozempic 2mg weekly (takes it on Mondays, last dose was 2 weeks ago) 73yo F with reasonably controlled T2D who was admitted for spinal fusion surgery on 11/23. She received dex 10mg and methylpred 80mg on the day of her surgery. She was initially put on insulin gtt buthas been off of it since 0900 11/24. She was started on basal bolus regimen and her BG have been reasonably controlled as below and we recommend continuing the regimen below. Outpatient regimen results in slightly excessive daytime control and would advise liberalizing given age, comorbidity status, and fall risk. She last took Ozempic 2 weeks ago, discussed holding for now given her PO intake suboptimal, but can consider resuming in the future or at discharge. Recommendations: Basal Insulin: - glargine 16 units qHS Mealtime/Bolus Insulin: - lispro 6 units TID AC Correctional/Sliding-Scale Insulin: - sensitive correctional lispro TID AC, HS - POC glucoses TID AC, HS, 2AM when eating - Consistent carb diet when eating; no juices, no regular soda - When NPO, continue glargine, hold mealtime lispro, change correctional (sliding scale) lispro andPOC glucoses to Q4hr - Consider D5/0.45NS 100 mls/hr or D10 50 ml/hr if prolonged NPO (>12hrs) - If he has severe hyperglycemia (>300), use the hyperglycemia urgency order set (make NPO, IV insulin, re-check in 1 hour) > The half-life of IV insulin is ~5 minutes; it's safer than giving multiple doses of subQ insulin (can last ~4 hours & builds up if given repeatedly). #Osteoporosis: Had a low trauma hip fracture back in 2014 which led to the clinical diagnosis of osteoporosis. Shehas been on fosamax since ?2014, patient does not remember exactly. Denies any drug holiday. Her last DEXA scan in chart is from 2020. No new fragility fractures since then Vitamin D 31, Ca 8.5 (11/14/2023), Cr 1.28 with eGFR 44 -She will need a repeat DEXA scan outpatient. -We would typically treat for 5-10 years, but then would recommend a drug holiday if felt that her risk factors are mitigated and osteoporosis stable. We advised her to discuss appropriateness of this with her primary care doctor and referral to Endocrine/Bone can be considered if additional assistance is needed. ## Discharge Planning PCP -- Angeles Jiménez MD Endocrinology, Metabolism, & Lipid Research Cosigned by Anni Sanchez MD at 11/27/2023 3:36 PM CDT Associated attestation - Anni Sanchez MD - 11/27/2023 3:36 PM CDT I have seen and examined the patient on 11/27/23. I agree with the findings and plan of care as documented in the resident's/fellow's note. and as discussed with the resident/fellow.. Ms. Ly is doing ok, appetite still poor and taking about 1/2 of tray intake. We will hold off on re-introducing GLP1 for now until return of normal bowel function, then can consider adding on. * Plan of Care - Damaris Hummel RN - 11/27/2023 12:59 PM CDT Problem: Lack of Knowledge Goal: Ability to develop a pain control plan will improve Outcome: Progressing Flowsheets (Taken 11/27/2023 1200) Ability to develop a pain control plan will improve: Explain causes of pain and how long pain can be expected to last Teach information regarding pain management Problem: Medication Goal: Satisfaction with pain management medication regimen will improve Outcome: Progressing Flowsheets (Taken 11/27/2023 1200) Satisfaction with pain management medication regimen will improve: Assess satisfaction with pain management regimen Evaluate medication effects Problem: Coping Goal: Ability to cope will improve Outcome: Progressing Flowsheets (Taken 11/27/2023 1200) Ability to cope will Improve: Encourage vebalization of feelings surrounding pain Provide emotional support Problem: Skin Integrity Impairment Risk Goal: Mobility will improve Recent Flowsheet Documentation Taken 11/27/2023 1200 by Damaris Hummel RN Mobility will improve: Encourage mobilization to extent of ability, assist with range of motion as needed Encourage turning and repositioning, assist as needed Goal: Understanding of ways to prevent future skin breakdown will improve Recent Flowsheet Documentation Taken 11/27/2023 1200 by Damaris Hummel RN Understanding of ways to prevent future skin breakdown will improve: Discuss treatments to protect skin integrity Discuss treatment plan for related conditions Goal: Nutritional status will improve Recent Flowsheet Documentation Taken 11/27/2023 1200 by Damaris Hummel RN Nutritional status will improve: Assess nutritional status Encourage nutritional intake Goal: Risk for impaired skin integrity will decrease Recent Flowsheet Documentation Taken 11/27/2023 1200 by Damaris Hummel RN Risk for impaired skin integrity will decrease: Identify risk factors for impaired skin integrity and/or pressure injuries Implement precautions to protect skin integrity Use moisturizing agent to dry skin Problem: Fall Risk Goal: Ability to state ways to decrease the risk of falls will improve Recent Flowsheet Documentation Taken 11/27/2023 1200 by Damaris Hummel RN Ability to state ways to decrease the risk of falls will improve: Teach fall prevention measures Goal: Will remain free from falls Recent Flowsheet Documentation Taken 11/27/2023 1200 by Damaris Hummel RN Will remain free from falls: Assess risk factors for falls Implement fall prevention measures Goal: Will remain free from injury from falls Recent Flowsheet Documentation Taken 11/27/2023 1200 by Damaris Hummel RN Will remain free from injury from falls: Provide safe environment for conduction of activities of daily living in hospital environment Problem: Discharge Planning Goal: Understanding discharge needs will improve Recent Flowsheet Documentation Taken 11/27/2023 1200 by Damaris Hummel RN Understanding of discharge needs will improve: Discuss information regarding discharge instructions Identify discharge learning needs (meds, wound care, etc.) Goals: Clinical Goals for the Shift: Pain management; Monitor drain/garcia output; Ambulate; Safety and comfort Summary: Pt Alert and oriented *4, v/s stable, pain control with oxycodone, Pt able to ambulate with one person assist (walker), will continues to monitor. * Provider Query - Roseline Burciaga NP - 11/26/2023 5:53 PM CDT Clinical Indicators: 11/24/23: Pt admitted with Cervicalgia 11/24/23: S/P: PROCEDURE: 1. C5-T2 posterior/posterior lateral arthrodesis 2. Bilateral segmental C5 and C6 lateral mass fixation and bilateral T1 and T2 pedicle screw fixation 3. C7 and T1 laminectomy 4. Bilateral C7-T1 facetectomies for skeletonization, and neural lysis of the bilateral exiting C8 nerve roots. Notably a difficulty 22 modifier is requested for these osteotomies and foraminotomies given the significant anatomical derangement due to the spondylolisthesis as well as the significantgranular and fibrosis that occurred within and outside of the foramen causing both osseous as well as fibro cartilaginous severe stenosis of the exiting bilateral C8 nerve roots. This took approximately 3-4 times as long as a traditional foraminotomy. 5. Harvesting of nonstructural autograft for arthrodesis 6. Use of nonstructural allograft for arthrodesis 7. Use of neural monitoring 8. Use of Monsalve-Wells tongs for intraoperative traction 9. Use of intraoperative ultrasound Estimated Blood Loss: 500 mL Labs: Latest Reference Range & Units 11/24/23 22:01 11/25/23 04:39 Hgb 11.9 - 15.5 g/dL 11.5 (L) 10.9 (L) Hct 35.6 - 45.5 % 35.8 33.4 (L) (L): Data is abnormally low Treatments: Monitoring labs Specify a diagnosis that accurately reflects the lab findings, and document in the medical record and on the form below. __x_ Acute blood loss anemia was monitored, evaluated, or treated ___ Abnormal laboratory finding, incidental or clinically insignificant ___ Other explanation of clinical findings, specify below Additional Provider Response: References: From the ICD-10-CM Coding Guidelines, use of terms such as likely, suspected, possible, or probable(associated with a specific diagnosis that is being evaluated, monitored, or treated as if it exists) are acceptable and can be coded in the inpatient setting when documented at the time of discharge. This documentation will become part of the patient???s medical record. Thank you for your response, Tanuja. Eugenia LOWERY, MSN, BLAST HOLE DRILLER, CCDS Clinical Retail Link Analyst Early Education Teacher [email or web address] * Plan of Care - Graciela Pink RN - 11/26/2023 2:36 PM CDT Goals: Clinical Goals for the Shift: Pain management; Monitor drain/garcia output; Ambulate; Safety and comfort Summary: Problem: Lack of Knowledge Goal: Ability to develop a pain control plan will improve Outcome: Progressing Problem: Medication Goal: Satisfaction with pain management medication regimen will improve Outcome: Progressing Problem: Sensory Goal: Ability to identify factors that increase pain levels will improve while working to decrease the patient's pain levels Outcome: Progressing Problem: Coping Goal: Ability to cope will improve Outcome: Progressing Problem: Health Behavior Goal: Identification of resources available to assist in meeting health care needs will improve Outcome: Progressing Problem: Skin Integrity Impairment Risk Goal: Mobility will improve Outcome: Progressing Goal: Understanding of ways to prevent future skin breakdown will improve Outcome: Progressing Goal: Nutritional status will improve Outcome: Progressing Goal: Risk for impaired skin integrity will decrease Outcome: Progressing Problem: Fall Risk Goal: Ability to state ways to decrease the risk of falls will improve Outcome: Progressing Goal: Will remain free from falls Outcome: Progressing Goal: Will remain free from injury from falls Outcome: Progressing * Initial Assessments - Marie Caruso RN - 11/26/2023 10:36 AM CDT CM Initial Assessment Interview Note Information Obtained From: Patient (11/26/23 103) Admission Source: From non healthcare facility Impression: Patient s/p C5-T2 PCDF Plan Includes: CM explained role,and verified facesheet information. CM will continue to follow forreferrals and discharge planning. Anticipate discharge to SNF vs IPR pending PT/OT recs. 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 Home care service name and phone number: paid friend Outpatient Services: No Durable Medical Equipment: Walker (no wheels), Wheelchair, Wheelchair ramp Living Arrangements: Alone Type of Residence: Private residence Medication management: Independent (11/26/231034) Potential discharge needs include: Home Health: [facility], Physical therapy, Occupational therapy (11/26/231034) Anticipated Level of Care: Anticipated discharge level of care: [facility] facility Pt/Family agrees with Anticipated Level of Care: Yes (11/26/231034) Patient expects to be Discharged to: Long-Term Facility, (11/26/231034) Additional Information: Patient lives alone, and states that she is independent with ADL's. Patientpays a friend to help her with cooking, cleaning and running errands, and patient has walker and wheelchair at home. Patient is agreeable to placement at discharge, so will await PT/OT recs. EMS at discharge. Patient's Identified Problem/Goal Problem: Ensure acute medical needs are met and that patient has a safe discharge plan. Goal: Secure a discharge plan that patient/family are agreeable with and ensure patient has continuum of care. Case management will follow for discharge planning and send referrals as needed. Goals include: To assure continuity of care, To maximize coping skills, To assure patient is in a safe environment and To assure access to community resources. Plan includes: 1. Collaboration with Patient, Provider, Direct Care Nurse, Raw Scales Operator, and other members of theHealth Care Team to assure needed interventions completed. 2. Return patient to optimal level of self-care post discharge. 3. [employer] will follow for Discharge Planning - interventions as needed 4. Anticipated level of care at discharge 5. Planned Discharge Disposition Marie Caruso RN * Plan of Care - Ryan Schulte RN - 11/26/2023 8:42 AM CDT Goals: Clinical Goals for the Shift: Pain management; Monitor drain/garcia output; Ambulate; Safety and comfort Summary: Pt progressing toward goals. * Plan of Care - Juice Griffiths RN - 11/26/2023 4:51 AM CDT Problem: Lack of Knowledge Goal: Ability to develop a pain control plan will improve Outcome: Progressing Problem: Lack of Knowledge Goal: Ability to develop a pain control plan will improve Outcome: Progressing Problem: Medication Goal: Satisfaction with pain management medication regimen will improve Outcome: Progressing Problem: Medication Goal: Satisfaction with pain management medication regimen will improve Outcome: Progressing Problem: Sensory Goal: Ability to identify factors that increase pain levels will improve while working to decrease the patient's pain levels Outcome: Progressing Problem: Sensory Goal: Ability to identify factors that increase pain levels will improve while working to decrease the patient's pain levels Outcome: Progressing Problem: Coping Goal: Ability to cope will improve Outcome: Progressing Problem: Coping Goal: Ability to cope will improve Outcome: Progressing Goals: Summary: * Op Note - Brennan Castillo MD - 11/24/2023 2:05 PM CDT Operative Report SURGEON: Brennan Castillo MD SURGICAL TEAM: Surgeons and Role: * Brennan Castillo MD - Primary * Karely Wilkes MD PhD - Resident - Assisting DATE OF SURGERY : 11/24/2023 PREOPERATIVE DIAGNOSIS: 1. C7-T1 spondylolisthesis 2. Cervical myelopathy 3. Cervical radiculopathy 4. Cervical instability 5. Adjacent segment level disease POSTOPERATIVE DIAGNOSIS: Same INDICATION FOR PROCEDURE: Patient is very to 73-year-old female who has had a multilevel anterior cervical diskectomy and fusion that was done in an un instrumented fashion extending from C3 down to C7. This resulted in a 5 millimeter anterolisthesis of C7 over T1 with complete loss of height of the disc space resulting in severe bilateral neural foraminal stenosis of the exiting C8 nerve root as well as severe central and lateral recess canal stenosis with associated spinal cord compression. Due to the extensiveness ofthe previous anterior approaches as well as the patient's body habitus an anterior approach to the C7-T1 disc space did not seem feasible. She was offered a posterior only approach with a C5 versus C6-T2 posterior decompression and fusion with a C7-T1 laminectomy and bilateral C7-T1 facetectomies/foraminotomies for an extensive neural lysis and decompression of the exiting bilateral C8 nerve roots. The patient understood the risks, benefits, alternatives to surgery and understood there is no guarantee of improvement of her pre-existing significant neurological deficits. The patient wished to proceed with surgery. ANESTHESIA: General PROCEDURE: 1. C5-T2 posterior/posterior lateral arthrodesis 2. Bilateral segmental C5 and C6 lateral mass fixation and bilateral T1 and T2 pedicle screw fixation 3. C7 and T1 laminectomy 4. Bilateral C7-T1 facetectomies for skeletonization, and neural lysis of the bilateral exiting C8 nerve roots. Notably a difficulty 22 modifier is requested for these osteotomies and foraminotomies given the significant anatomical derangement due to the spondylolisthesis as well as the significantgranular and fibrosis that occurred within and outside of the foramen causing both osseous as well as fibro cartilaginous severe stenosis of the exiting bilateral C8 nerve roots. This took approximately 3-4 times as long as a traditional foraminotomy. 5. Harvesting of nonstructural autograft for arthrodesis 6. Use of nonstructural allograft for arthrodesis 7. Use of neural monitoring 8. Use of Monsalve-Wells tongs for intraoperative traction 9. Use of intraoperative ultrasound DETAILS OF PROCEDURE: Patient was brought into the operating room by the general anesthesia team and the Surgical team. The patient was subsequently identified and a primary time- out was performed to confirm the patient'sidentity and planned surgical procedure. The patient was subsequently sedated, intubated, and all appropriate lines were placed by the General anesthesia team. Patient was then fitted with Monsalve-Wells tongs on the skull and flipped prone onto a OSI with the head secured with 15 lb of traction, the torso secured, the extremities relaxed, and all appropriate bony prominences padded to minimize injury. An appropriate incision was marked with fluoroscopy and the surgical field was prepped and drap ed in usual sterile fashion. A 2nd time-out was performed to confirm the patient's identity, planned surgical procedure and important perioperative details including blood pressure goals, beta-moses blockade, need for glucose control, administration of perioperative antibiotics, neuro monitoring status, an additional important perioperative details. Notably it was noted that the patient had absent bilateral lower extremity motor and somatosensory evoked potentials. The positioning was uneventful and the position of the neck on traction was examined and found to be in an ideal configuration. The decision was made to proceed as nothing else could be done differently and the goal would be to expeditiously perform the decompression. No other barriers were identified proceeding. The skin was incised sharply and a meticulous subperiosteal exposure was completed from C5 to T2. The Misonix BoneScalpel was then used to perform a C7 and T1 laminectomy. The lamina was removed on block on eventfully. The Misonix BoneScalpel was then used to perform bilateral C7 inferior facetectomies and bilateral T1 superior articulating facetectomies. The bone was removed uneventfully. It was noted that there was severe fibrocartilage and a circumferential soft tissue encroachment within the foramen and surrounding the nerve roots. A combination of sharp and blunt dissection was used to remove this off the nerve roots given the nerve roots the room that they needed to be decompressed to achieve a generous neural lysis of the bilateral exiting C8 nerve roots. A difficulty 22 modifier is requested for this given the severe amount of dense adhesions, scarring, and prominence of the fiber cartilaginous and granulation tissue present on the nerve roots. This took approximately 3-4 times as a traditional foraminotomy were. Freehand technique was then used to place bilateral C5 and C6 lateral massscrews followed by bilateral T1 and T2 pedicle screws. C7 could not be instrumented due to the significant amount of bone that needed to be removed making it impossible to place either a pedicle or lateral mass screw. For this reason we need to fixation points above and does the fixation was extended into C5. Fluoroscopy confirmed the appropriate level of surgery as well as excellent placement ofthe instrumentation. Two titanium rods were measured, cut, and bent an appropriate curvature and secured to the instrumentation screw heads with set cap screws and final tightened. The wound was subsequently copiously irrigated. The decompression was checked with an intraoperative ultrasound and found to be excellent. Hemostasis was obtained. All exposed dorsal bony surfaces were subsequently decorticated and grafted with a combination of autograft and allograft. The dura was protected with Gelfoam. A subfascial drain was left in place. The wound was subsequently closed in layers. All counts were correct. There were no complications. There were no changes to neuro monitoring from the baseline signals. The patient was awoken from anesthesia and found to be moving all extremities with greater than 3/5 strength in bilateral upper and lower extremities. The family was informed regarding the need for naps augmentation in the intensive care unit out of precaution given the poor bilateral lower extremity signals prior to beginning the surgery. INTRAOPERATIVE MONITORING No significant change from preoperative baselines during or at the end on the procedure. COUNTS Sponge and needle counts were correct at the end of the procedure. Complications: None Condition on Discharge from the operating room was stable Brennan Castillo MD Date: 11/24/2023 Time: 6:33 PM TEACHING ATTESTATION : I was present and directly participated in the entire procedure (including opening and closing). * Brief Op Note - Karely Wilkes MD PhD - 11/24/2023 2:05 PM CDT Operative Progress Note Surgical Team: Surgeons and Role: * Brennan Castillo MD - Primary * Karely Wilkes MD PhD - Resident - Assisting Anesthesiologist: Amarilys Boss MD PhD; Mary Jo Saldana MD SALES CENTER ASSOCIATE: Silvia Neri CRNA; Wagner Madison CRNA Assistant Business Manager: Joyce Mccray RN; Paola Stuart RN Material Handler: Radha Fisher, RT; Jose Moore RT Scrub Relief: Juana Brody ST; Perez Rojas RN Scrub: Daisy Teixeira RN Acid Conditioning Worker: Hazel Andrade MT; Zenon Jones MT DATE OF SURGERY : 11/24/2023 Preoperative Diagnosis: Pre-op Diagnosis * Cervicalgia [M54.2] Postoperative Diagnosis: Post-op Diagnosis * Cervicalgia [M54.2] Procedure(s): Procedure(s) (LRB): FUSION CERVICAL/THORACIC - POSTERIOR WITH INSTRUMENTATION C5-T2 posterior spinal fusion with a C5-T2 decompression and bilateral foraminotomies (N/A) SPINAL CORD MONITORING (N/A) FORAMINOTOMY CERVICAL - POSTERIOR C5-T2 posterior spinal fusion with a C5-T2 decompression and bilateral foraminotomies (Bilateral) Operative Findings: C5-T2 PCDF Estimated Blood Loss: 500 mL Intraoperative Fluids: 3000 mL Specimens: No specimen collected in procedure Implants: Implant Name Type Inv. Item Serial No. Field Handyman Lot No. [id number] No. Used Action NEW AGE MEDICAL Graft Bone Magnetos 10cc 1-2mm Granules In Moldable Putty [id number] - [id number] NEW AGE MEDICAL Graft Bone Magnetos 10cc 1-2mm Granules In Moldable Putty [id number] New Age [id number] Implanted [employer] Crushed Chip Frozen Graft 60ml Bone Cancellous [id number] - [id number] [employer]OURCE CrushedChip Frozen Graft 60ml Bone Cancellous [id number] [employer] [id number] Implanted [employer] Screw Spine Reline C Lock Open Non-Sterile Latex Free [id number] - [id number] [employer] Screw Spine Reline C Lock Open Non-Sterile Latex Free [id number] [employer] 8 Implanted [employer] Screw Spine Reline C Ma 3.5x16mm Non-Sterile Latex Free [id number] - [id number] [employer] Screw Spine Reline C Ma 3.5x16mm Non-Sterile Latex Free [id number] [employer] 2 Implanted [employer] Reline C Screw 3.5x16mm Reduction [id number] - [id number] [employer] Reline C Screw 3.5x16mm Reduction [id number] [employer] 2 Implanted [employer] Screw Spinal Posterior Cervical Full Thread Solid Reline 4.5x35mm Titanium [id number] - [id number] [employer] Screw Spinal Posterior Cervical Full Thread Solid Reline 4.5x35mm Titanium [id number] [employer] 1 Implanted [employer] Reline C Screw 5.5x35mm Reduction Thor [id number] - [id number] [employer] Reline C Screw 5.5x35mm Reduction Thor [id number] [employer] 3 Implanted [employer] Eddi Spine Reline C Ti Prebent 4.0x70mm Latex Free [id number] - [id number] [employer] Eddi Spine Reline C Ti Prebent 4.0x70mm Latex Free [id number] [employer] 2 Implanted Blood/Blood Products Transfused: 1u pRBC Complications: None Condition on Discharge from the operating room was stable Karely Wilkes MD PhD Date: 11/24/2023 Time: 5:48 PM TEACHING ATTESTATION : I was present and I participated in all portions of the procedure except final closure and remained immediately available during all remaining portions of the case. Cosigned by Brennan Castillo MD at 11/24/2023 6:25 PM CDT documented in this encounter Plan of Treatment Not on file documented as of this encounter Procedures Procedure Name Priority Date/Time Associated Diagnosis Comments POCT GLUCOSE DEVICE Routine 12/04/2023 4 :11 PM CDT POCT GLUCOSE DEVICE Routine 12/04/2023 1 1:53 AM CDT POCT GLUCOSE DEVICE Routine 12/04/2023 8 :03 AM CDT EGFR Routine 12/03/2023 11:04 PM CDT CBC WITHOUT DIFFERENTIAL Routine 12/03/2023 11:04 PM CDT BASIC METABOLIC PANEL Routine 12/03/2023 11:04 PM CDT POCT GLUCOSE DEVICE Routine 12/03/2023 9 :13 PM CDT POCT GLUCOSE DEVICE Routine 12/03/2023 4 :46 PM CDT POCT GLUCOSE DEVICE Routine 12/03/2023 1 1:42 AM CDT POCT GLUCOSE DEVICE Routine 12/03/2023 7 :40 AM CDT EGFR Routine 12/02/2023 10:33 PM CDT CBC WITHOUT DIFFERENTIAL Routine 12/02/2023 10:33 PM CDT BASIC METABOLIC PANEL Routine 12/02/2023 10:33 PM CDT POCT GLUCOSE DEVICE Routine 12/02/2023 8 :44 PM CDT POCT GLUCOSE DEVICE Routine 12/02/2023 5 :08 PM CDT POCT GLUCOSE DEVICE Routine 12/02/2023 1 1:18 AM CDT POCT GLUCOSE DEVICE Routine 12/02/2023 7 :40 AM CDT EGFR Routine 12/02/2023 5:32 AM CDT CBC WITHOUT DIFFERENTIAL Routine 12/02/2023 5:32 AM CDT BASIC METABOLIC PANEL Routine 12/02/2023 5:32 AM CDT POCT GLUCOSE DEVICE Routine 12/02/2023 5 :28 AM CDT POCT GLUCOSE DEVICE Routine 12/01/2023 8 :32 PM CDT POCT GLUCOSE DEVICE Routine 12/01/2023 5 :05 PM CDT PROTEIN ELECTROPHORESIS, WITH REFLEX, SERUM Routine 12/01/2023 4:00 PM CDT PTH Routine 12/01/2023 4:00 PM CDT POCT GLUCOSE DEVICE Routine 12/01/2023 1 1:54 AM CDT POCT GLUCOSE DEVICE Routine 12/01/2023 7 :41 AM CDT POCT GLUCOSE DEVICE Routine 12/01/2023 3 :16 AM CDT EGFR Routine 11/30/2023 8:40 PM CDT CBC WITHOUT DIFFERENTIAL Routine 11/30/2023 8:40 PM CDT BASIC METABOLIC PANEL Routine 11/30/2023 8:40 PM CDT POCT GLUCOSE DEVICE Routine 11/30/2023 8 :29 PM CDT POCT GLUCOSE DEVICE Routine 11/30/2023 4 :36 PM CDT POCT GLUCOSE DEVICE Routine 11/30/2023 1 2:04 PM CDT POCT GLUCOSE DEVICE Routine 11/30/2023 7 :56 AM CDT POCT GLUCOSE DEVICE Routine 11/30/2023 1 :56 AM CDT EGFR Routine 11/29/2023 10:32 PM CDT CBC WITHOUT DIFFERENTIAL Routine 11/29/2023 10:32 PM CDT BASIC METABOLIC PANEL Routine 11/29/2023 10:32 PM CDT POCT GLUCOSE DEVICE Routine 11/29/2023 8 :48 PM CDT POCT GLUCOSE DEVICE Routine 11/29/2023 5 :21 PM CDT POCT GLUCOSE DEVICE Routine 11/29/2023 1 1:45 AM CDT POCT GLUCOSE DEVICE Routine 11/29/2023 7 :49 AM CDT POCT GLUCOSE DEVICE Routine 11/29/2023 3 :05 AM CDT EGFR Routine 11/28/2023 10:30 PM CDT CBC WITHOUT DIFFERENTIAL Routine 11/28/2023 10:30 PM CDT BASIC METABOLIC PANEL Routine 11/28/2023 10:30 PM CDT POCT GLUCOSE DEVICE Routine 11/28/2023 7 :36 PM CDT POCT GLUCOSE DEVICE Routine 11/28/2023 5 :01 PM CDT POCT GLUCOSE DEVICE Routine 11/28/2023 1 1:33 AM CDT POCT GLUCOSE DEVICE Routine 11/28/2023 7 :38 AM CDT POCT GLUCOSE DEVICE Routine 11/28/2023 1 :26 AM CDT EGFR Routine 11/27/2023 10:51 PM CDT CBC WITHOUT DIFFERENTIAL Routine 11/27/2023 10:51 PM CDT BASIC METABOLIC PANEL Routine 11/27/2023 10:51 PM CDT POCT GLUCOSE DEVICE Routine 11/27/2023 8 :34 PM CDT POCT GLUCOSE DEVICE Routine 11/27/2023 5 :11 PM CDT POCT GLUCOSE DEVICE Routine 11/27/2023 1 2:13 PM CDT POCT GLUCOSE DEVICE Routine 11/27/2023 7 :49 AM CDT EGFR Routine 11/26/2023 10:44 PM CDT CBC WITHOUT DIFFERENTIAL Routine 11/26/2023 10:44 PM CDT BASIC METABOLIC PANEL Routine 11/26/2023 10:44 PM CDT POCT GLUCOSE DEVICE Routine 11/26/2023 7 :44 PM CDT POCT GLUCOSE DEVICE Routine 11/26/2023 5 :18 PM CDT POCT GLUCOSE DEVICE Routine 11/26/2023 1 1:53 AM CDT XR SPINE CERVICAL 2 OR 3 VIEWS IP Routine 11/26/2023 10:18 AM CDT POCT GLUCOSE DEVICE Routine 11/26/2023 8 :09 AM CDT POCT GLUCOSE DEVICE Routine 11/26/2023 1 :22 AM CDT POCT GLUCOSE DEVICE Routine 11/25/2023 8 :07 PM CDT TYPE AND SCREEN Timed 11/25/2023 8:07 PM CDT POCT GLUCOSE DEVICE Routine 11/25/2023 4 :41 PM CDT POCT GLUCOSE DEVICE Routine 11/25/2023 1 2:07 PM CDT POCT GLUCOSE DEVICE Routine 11/25/2023 9 :59 AM CDT POCT GLUCOSE DEVICE Routine 11/25/2023 8 :55 AM CDT POCT GLUCOSE DEVICE Routine 11/25/2023 8 :04 AM CDT POCT GLUCOSE DEVICE Routine 11/25/2023 7 :13 AM CDT POCT GLUCOSE DEVICE Routine 11/25/2023 6 :22 AM CDT POCT GLUCOSE DEVICE Routine 11/25/2023 5 :18 AM CDT EGFR Routine 11/25/2023 4:39 AM CDT CBC WITHOUT DIFFERENTIAL Routine 11/25/2023 4:39 AM CDT BASIC METABOLIC PANEL Routine 11/25/2023 4:39 AM CDT POCT GLUCOSE DEVICE Routine 11/25/2023 4 :00 AM CDT POCT GLUCOSE DEVICE Routine 11/25/2023 2 :00 AM CDT POCT GLUCOSE DEVICE Routine 11/25/2023 1 2:56 AM CDT POCT GLUCOSE DEVICE Routine 11/24/2023 1 1:16 PM CDT POCT GLUCOSE DEVICE Routine 11/24/2023 1 0:03 PM CDT EGFR STAT 11/24/2023 10:01 PM CDT APTT STAT 11/24/2023 10:01 PM CDT PROTIME-INR STAT 11/24/2023 10:01 PM CDT CBC WITHOUT DIFFERENTIAL STAT 11/24/2023 10:01 PM CDT BASIC METABOLIC PANEL STAT 11/24/2023 10:01 PM CDT POCT GLUCOSE DEVICE Routine 11/24/2023 9 :07 PM CDT POCT GLUCOSE DEVICE Routine 11/24/2023 8 :00 PM CDT TRANSFUSE RED BLOOD CELLS Timed 11/24/2023 7:15 PM CDT POCT GLUCOSE DEVICE Routine 11/24/2023 6 :58 PM CDT PREPARE RBC Timed 11/24/2023 6:19 PM CDT POCT GLUCOSE DEVICE Routine 11/24/2023 6 :06 PM CDT POC BLOOD GAS AND CHEMISTRIES, ARTERIAL Routine 11/24/2023 4:55 PM CDT FL FLUOROSCOPY < 1 HOUR IP Routine 11/24/2023 4:31 PM CDT TRANSFUSE RED BLOOD CELLS Timed 11/24/2023 4:01 PM CDT POC BLOOD GAS AND CHEMISTRIES, ARTERIAL Routine 11/24/2023 3:20 PM CDT PREPARE RBC STAT 11/24/2023 3:09 PM CDT POCT GLUCOSE DEVICE Routine 11/24/2023 2 :29 PM CDT FORAMINOTOMY CERVICAL - POSTERIOR 11/24/2023 12:37 PM CDT Cervicalgia Case Notes 11/09@1405- Per Yola via case msg move to follow in other [facility] SPINAL CORD MONITORING 12:37 PM CDT Cervicalgia Case Notes 11/09@1405- Per Yola via case msg move to follow in other [facility] FUSION CERVICAL/THORACIC - POSTERIOR WITH INSTRUMENTATION 11/24/2023 12:37 PM CDT Cervicalgia Case Notes 11/09@1405- Per Yola via case msg move to follow in other [facility] B CHECK SAMPLE STAT 11/24/2023 12:07 PM CDT POCT GLUCOSE DEVICE Routine 11/24/2023 1 2:03 PM CDT documented in this encounter Results * POCT glucose (12/04/2023 4:11 PM CDT) Glucose, POC 147 70 - 199 mg/dL Blood 12/04/2023 4:11 PM CDT 12/04/2023 4:11 PM CDT Brennan Castillo MD LAB POCT ORDERABLES - DEVICE Fi nal Result [facility] Department [place] [address] * POCT glucose (12/04/2023 11:53 AM CDT) Glucose, POC 109 70 - 199 mg/dL Blood 12/04/2023 11:5 3 AM CDT 12/04/2023 11:53 AM CDT Brennan Castillo MD LAB POCT ORDERABLES - DEVICE Fi nal Result [facility] Department [place] [address] * POCT glucose (12/04/2023 8:03 AM CDT) Glucose, POC 129 70 - 199 mg/dL Blood 12/04/2023 8:03 AM CDT 12/04/2023 8:03 AM CDT us Brennan Castillo MD LAB POCT ORDERABLES - DEVICE Fi nal Result Performing Organization Address [facility] Co de Phone Number ANN [facility] [place] [address] * (ABNORMAL) eGFR (12/03/2023 11:04 PM CDT) [facility] eGFR 29(L) >=60 mL/min/1. 73 m2 Comment: Interpretive Data [...] of Race in Diagnosing Kidney Disease, JASN 202). The CKD-EPI equation should not be used for patients with unstable renal function and has not been validated in children and those over 70. Current interpretive data was last reviewed 2021. Blood 12/03/2023 11:0 4 PM CDT 12/03/2023 11:45 PM CDT Jef Rock NP LAB BLOOD ORDERABLES Final Result Performing Organization Address City/[facility]/ZIP Co de Phone Number [facility] Department [place] [address] * (ABNORMAL) Basic metabolic panel (12/03/2023 11:04 PM CDT) Pathologist [facility] [place] Sodium 138 135 - 145 mmol/L Potassium, pl 4.4 3.3 - 4.9 mmol/L [facility] Chloride 101 97 - 110 mmol/L [facility] CO2 26 22 - 32 mmol/L [facility] Anion gap 11 2 - 15 mmol/L [facility] BUN 31(H) 6 - 25 mg/dL [facility] Creatinine 1.83(H) 0.60 - 1.10 mg/dL [facility] Glucose 147 70 - 199 mg/dL [facility] Comment: Interpretive Data Fasting glucose >/= 126 [...] Current interpretive data was last revised 2022. Calcium 9.3 8.5 - 10.3 mg/dL [facility] Blood 12/03/2023 11:0 4 PM CDT 12/03/2023 11:45 PM CDT Jef Rock NP LAB BLOOD ORDERABLES Final Result Performing Organization Address [facility] Co de Phone Number [facility] Department [place] [address] * (ABNORMAL) CBC without differential (12/03/2023 11:04 PM CDT) Pathologist [facility] WBC 6.3 3.8 - 9.9 K/cumm Hgb 9.9(L) 11.9 - 15.5 g/dL [facility] Hct 31.3(L) 35.6 - 45.5 % [facility] Plt 184 150 - 400 K/cumm [facility] MPV 9.8 9.1 - 12.3 fL [facility] RBC 3.72(L) 3.90 - 5.20 M/cumm [facility] MCV 84.1 81.3 - 96.4 fL [facility] MCH 26.6(L) 27.1 - 33.3 pg [facility] MCHC 31.6(L) 32.3 - 35.7 g/dL [facility] RDW CV 16.7(H) 11.1 - 14.9 % [facility] RDW SD 50.4(H) 35.7 - 48.1 fL [facility] NRBC abs 0.00 0.00 - 0.01 K/cumm [facility] Blood 12/03/2023 11:0 4 PM CDT 12/03/2023 11:44 PM CDT us Jef Rock NP LAB BLOOD ORDERABLES Final Result [facility] Department [place] [address] * POCT glucose (12/03/2023 9:13 PM CDT) Pathologist [facility] Glucose, POC 133 70 - 199 mg/dL Blood 12/03/2023 9:13 PM CDT 12/03/2023 9:13 PM CDT Brennan Castillo MD LAB POCT ORDERABLES - DEVICE Fi nal Result [facility] [place] [address] * POCT glucose (12/03/2023 4:46 PM CDT) Glucose, POC 148 70 - 199 mg/dL Blood 12/03/2023 4:46 PM CDT 12/03/2023 4:46 PM CDT Brennan Castillo MD LAB POCT ORDERABLES - DEVICE Fi nal Result Performing Organization Address [facility] [place] [address] * POCT glucose (12/03/2023 11:42 AM CDT) [facility] Signature Glucose, POC 142 70 - 199 mg/dL Blood 12/03/2023 11:4 2 AM CDT 12/03/2023 11:42 AM CDT Brennan Castillo MD LAB POCT ORDERABLES - DEVICE Fi nal Result Performing Organization Address [facility] Co de Phone Number [facility] [place] [address] * POCT glucose (12/03/2023 7:40 AM CDT) [facility] Signature Glucose, POC 138 70 - 199 mg/dL Blood 12/03/2023 7:40 AM CDT 12/03/2023 7:40 AM CDT Brennan Castillo MD LAB POCT ORDERABLES - DEVICE Fi nal Result Performing Organization Address [facility] [place] [address] * (ABNORMAL) eGFR (12/02/2023 10:33 PM CDT) eGFR 28(L) >=60 mL/min/1. 73 m2 Comment: Interpretive Data [...] Current interpretive data was last reviewed 2021. Blood 12/02/2023 10:3 3 PM CDT 12/02/2023 11:33 PM CDT Jef Rock VIOLENT [employer]IMES DETECTIVE LAB BLOOD ORDERABLES Final Result [facility] Department [place] [address] * (ABNORMAL) Basic metabolic panel (12/02/2023 10:33 PM CDT) [facility] Sodium 138 135 - 145 mmol/L Potassium, pl 4.4 3.3 - 4.9 mmol/L [facility] Chloride 100 97 - 110 mmol/L [facility] CO2 27 22 - 32 mmol/L [facility] Anion gap 11 2 - 15 mmol/L [facility] BUN 33(H) 6 - 25 mg/dL [facility] Creatinine 1.87(H) 0.60 - 1.10 mg/dL [facility] Glucose 147 70 - 199 mg/dL [facility] Comment: Interpretive Data Fasting glucose >/= 126 [...] Current interpretive data was last revised 2022. Calcium 9.2 8.5 - 10.3 mg/dL [facility] Blood 12/02/2023 10:3 3 PM CDT 12/02/2023 11:33 PM CDT Jef Rock NP LAB BLOOD ORDERABLES Final Result [facility] Department [place] [address] * (ABNORMAL) CBC without differential (12/02/2023 10:33 PM CDT) WBC 6.4 3.8 - 9.9 K/cumm Hgb 9.8(L) 11.9 - 15.5 g/dL [facility] Hct 30.8(L) 35.6 - 45.5 % [facility] Plt 191 150 - 400 K/cumm [facility] MPV 9.7 9.1 - 12.3 fL [facility] RBC 3.60(L) 3.90 - 5.20 M/cumm [facility] MCV 85.6 81.3 - 96.4 fL [facility] MCH 27.2 27.1 - 33.3 pg [facility] MCHC 31.8(L) 32.3 - 35.7 g/dL [facility] RDW CV 16.7(H) 11.1 - 14.9 % [facility] RDW SD 50.7(H) 35.7 - 48.1 fL [facility] NRBC abs 0.00 0.00 - 0.01 K/cumm [facility] Blood 12/02/2023 10:3 3 PM CDT 12/02/2023 11:33 PM CDT Jef Rock VI[employer]ENT [employer]IMES DETECTIVE LAB BLOOD ORDERABLES Final Result Performing Organization Address City/[facility] Co de Phone Number [facility] [place] [address] * POCT glucose (12/02/2023 8:44 PM CDT) Glucose, POC 170 70 - 199 mg/dL Blood 12/02/2023 8:44 PM CDT 12/02/2023 8:44 PM CDT Brennan Castillo MD LAB POCT ORDERABLES - DEVICE Fi nal Result Performing Organization Address City/[facility] Co de Phone Number [facility] [place] [address] * POCT glucose (12/02/2023 5:08 PM CDT) Glucose, POC 104 70 - 199 mg/dL Blood 12/02/2023 5:08 PM CDT 12/02/2023 5:08 PM CDT Brennan Castillo MD LAB POCT ORDERABLES - DEVICE Fi nal Result Performing Organization Address City/[facility] Co de Phone Number [facility] [address] [place], [place] [id number] * (ABNORMAL) POCT glucose (12/02/2023 11:18 AM CDT) Glucose, POC 214(H) 70 - 199 mg/dL Blood 12/02/2023 11:1 8 AM CDT 12/02/2023 11:18 AM CDT Brennan Castillo MD LAB POCT ORDERABLES - DEVICE Fi nal Result Performing Organization Address [facility] de Phone Number [facility] [place] [address] * POCT glucose (12/02/2023 7:40 AM CDT) Glucose, POC 169 70 - 199 mg/dL Blood 12/02/2023 7:40 AM CDT 12/02/2023 7:40 AM CDT Brennan Castillo MD LAB POCT ORDERABLES - DEVICE Fi nal Result Performing Organization Address [facility] de Phone Number [facility] [place] [address] * (ABNORMAL) eGFR (12/02/2023 5:32 AM CDT) eGFR 30(L) >=60 mL/min/1. 73 m2 Comment: Interpretive Data [...] of Race in Diagnosing Kidney Disease, JASN 202). The CKD-EPI equation should not be used for patients with unstable renal function and has not been validated in children and those over 70. Current interpretive data was last reviewed 2021. Blood 12/02/2023 5:3 2 AM CDT 12/02/2023 6:06 AM CDT Jef Rock NP LAB BLOOD ORDERABLES Final Result [facility] Department [place] [address] * (ABNORMAL) Basic metabolic panel (12/02/2023 5:32 AM CDT) Sodium 139 135 - 145 mmol/L Potassium, pl 4.3 3.3 - 4.9 mmol/L [facility] Chloride 102 97 - 110 mmol/L [facility] CO2 28 22 - 32 mmol/L [facility] Anion gap 9 2 - 15 mmol/L [facility] BUN 32(H) 6 - 25 mg/dL [facility] Creatinine 1.74(H) 0.60 - 1.10 mg/dL [facility] Glucose 167 70 - 199 mg/dL [facility] Comment: Interpretive Data Fasting glucose >/= 126 [...] Current interpretive data was last revised 2022. Calcium 9.1 8.5 - 10.3 mg/dL [facility] Blood 12/02/2023 5:32 AM CDT 12/02/2023 6:06 AM CDT Jef Rock [employer]IVE LAB BLOOD ORDERABLES Final Result Performing Organization Address [facility] de Phone Number [facility] Department [place] [address] * (ABNORMAL) CBC without differential (12/02/2023 5:32 AM CDT) Pathologist [facility] WBC 6.8 3.8 - 9.9 K/cumm Hgb 9.7(L) 11.9 - 15.5 g/dL [facility] Hct 30.8(L) 35.6 - 45.5 % [facility] Plt 193 150 - 400 K/cumm [facility] MPV 9.8 9.1 - 12.3 fL [facility] RBC 3.60(L) 3.90 - 5.20 M/cumm [facility] MCV 85.6 81.3 - 96.4 fL [facility] MCH 26.9(L) 27.1 - 33.3 pg [facility] MCHC 31.5(L) 32.3 - 35.7 g/dL [facility] RDW CV 16.9(H) 11.1 - 14.9 % [facility] RDW SD 52.0(H) 35.7 - 48.1 fL [facility] NRBC abs 0.00 0.00 - 0.01 K/cumm [facility] Blood 12/02/2023 5:32 AM CDT 12/02/2023 6:06 AM CDT Jef Rock NP LAB BLOOD ORDERABLES Final Result Performing Organization Address City/[facility]/ZIP Co de Phone Number [facility] [place] [address] * POCT glucose (12/02/2023 5:28 AM CDT) Glucose, POC 169 70 - 199 mg/dL Blood 12/02/2023 5:28 AM CDT 12/02/2023 5:28 AM CDT Brennan Castillo MD LAB POCT ORDERABLES - DEVICE Fi nal Result Performing Organization Address [facility] Co de Phone Number [facility] [place] [address] * POCT glucose (12/01/2023 8:32 PM CDT) Glucose, POC 164 70 - 199 mg/dL Blood 12/01/2023 8:32 PM CDT 12/01/2023 8:32 PM CDT Brennan Castillo MD LAB POCT ORDERABLES - DEVICE Fi nal Result Performing Organization Address [facility] de Phone Number [facility] Department [place] [address] * POCT glucose (12/01/2023 5:05 PM CDT) [facility] Glucose, POC 142 70 - 199 mg/dL Blood 12/01/2023 5:05 PM CDT 12/01/2023 5:05 PM CDT Brennan Castillo MD LAB POCT ORDERABLES - DEVICE Fi nal Result Performing Organization Address [facility] [place] [address] * (ABNORMAL) Protein electrophoresis with reflex, serum (12/01/2023 4:00 PM CDT) [facility] Protein, sr 6.5 6.2 - 8.2 g/dL Albumin 3.1(L) 3.2 - 5.0 g/dL [facility] Alpha-1 globulin 0.4 0.2 - 0.4 g/dL [facility] Alpha-2 globulin 1.0 0.5 - 1.0 g/dL [facility] Beta-1 globulin 0.5 0.3 - 0.6 g/dL [facility] Beta-2 globulin 0.5 0.2 - 0.6 g/dL [facility] Gamma globulin 1.0 0.5 - 1.7 g/dL [facility] SPEP interp Please see comment [facility] Comment: No apparent monoclonal peak Reviewed and signed by Prashanth Brown MD 12/02/2023 Blood 12/01/2023 4:00 PM CDT 12/01/2023 4:18 PM CDT Arik Chase NP LAB BLOOD ORDERABLES Final R esult Performing Organization Address City/[facility] Co de Phone Number [facility] [place] [address] * (ABNORMAL) PTH (12/01/2023 4:00 PM CDT) PTH 79(H) 15 - 65 pg/mL Blood 12/01/2023 4:00 PM CDT 12/01/2023 4:18 PM CDT us Arik Chase NP LAB BLOOD ORDERABLES Final R esult Performing Organization Address [facility] Co de Phone Number [facility] [place] [address] * POCT glucose (12/01/2023 11:54 AM CDT) Glucose, POC 157 70 - 199 mg/dL Blood 12/01/2023 11:5 4 AM CDT 12/01/2023 11:54 AM CDT us Brennan Castillo MD LAB POCT ORDERABLES - DEVICE Fi nal Result Performing Organization Address City/[facility] Co de Phone [place] [address] * POCT glucose (12/01/2023 7:41 AM CDT) Glucose, POC 148 70 - 199 mg/dL Blood 12/01/2023 7:41 AM CDT 12/01/2023 7:41 AM CDT Brennan Castillo MD LAB POCT ORDERABLES - DEVICE Fi nal Result Performing Organization Address [facility] [place] [address] * POCT glucose (12/01/2023 3:16 AM CDT) Glucose, POC 147 70 - 199 mg/dL Blood 12/01/2023 3:16 AM CDT 12/01/2023 3:16 AM CDT Result [facility] Brennan Castillo MD LAB POCT ORDERABLES - DEVICE Fi nal Result Performing Organization Address [facility] [place] [address] * (ABNORMAL) eGFR (11/30/2023 8:40 PM CDT) eGFR 34(L) >=60 mL/min/1. 73 m2 Comment: Interpretive Data [...] of Race in Diagnosing Kidney Disease, JASN 202). The CKD-EPI equation should not be used for patients with unstable renal function and has not been validated in children and those over 70. Current interpretive data was last reviewed 2021. Blood 11/30/2023 8:40 PM CDT 11/30/2023 9:35 PM CDT Jef Rock NP LAB BLOOD ORDERABLES Final Result [facility] Department [place] [address] * (ABNORMAL) Basic metabolic panel (11/30/2023 8:40 PM CDT) Sodium 140 135 - 145 mmol/L Potassium, pl 4.4 3.3 - 4.9 mmol/L [facility] Chloride 99 97 - 110 mmol/L [facility] CO2 29 22 - 32 mmol/L [facility] Anion gap 12 2 - 15 mmol/L [facility] BUN 26(H) 6 - 25 mg/dL [facility] Creatinine 1.60(H) 0.60 - 1.10 mg/dL [facility] Glucose 130 70 - 199 mg/dL [facility] Comment: Interpretive Data Fasting glucose >/= 126 [...] Current interpretive data was last revised 2022. Calcium 9.6 8.5 - 10.3 mg/dL [facility] Blood 11/30/2023 8:40 PM CDT 11/30/2023 9:35 PM CDT Jef Rock [employer] LAB BLOOD ORDERABLES Final Result Performing Organization Address City/[facility]/ZIP Co de Phone Number [facility] [place] [address] * (ABNORMAL) CBC without differential (11/30/2023 8:40 PM CDT) [facility] WBC 7.8 3.8 - 9.9 K/cumm Hgb 11.0(L) 11.9 - 15.5 g/dL [facility] Hct 34.6(L) 35.6 - 45.5 % [facility] Plt 205 150 - 400 K/cumm [facility] MPV 10.1 9.1 - 12.3 fL [facility] RBC 4.11 3.90 - 5.20 M/cumm [facility] MCV 84.2 81.3 - 96.4 fL [facility] MCH 26.8(L) 27.1 - 33.3 pg [facility] MCHC 31.8(L) 32.3 - 35.7 g/dL [facility] RDW CV 16.7(H) 11.1 - 14.9 % [facility] RDW SD 49.3(H) 35.7 - 48.1 fL [facility] NRBC abs 0.00 0.00 - 0.01 K/cumm [facility] Blood 11/30/2023 8:40 PM CDT 11/30/2023 9:35 PM CDT Jef Rock NP LAB BLOOD ORDERABLES Final Result Performing Organization Address City/[facility]/ZIP Co de Phone Number [facility] [place] [address] * POCT glucose (11/30/2023 8:29 PM CDT) Glucose, POC 139 70 - 199 mg/dL Blood 11/30/2023 8:29 PM CDT 11/30/2023 8:29 PM CDT Brennan Castillo MD LAB POCT ORDERABLES - DEVICE Fi nal Result Performing Organization Address City/[facility] Co de Phone Number [facility] [place] [address] * POCT glucose (11/30/2023 4:36 PM CDT) Glucose, POC 130 70 - 199 mg/dL Blood 11/30/2023 4:36 PM CDT 11/30/2023 4:36 PM CDT Brennan Castillo MD LAB POCT ORDERABLES - DEVICE Fi nal Result Performing Organization Address [facility] Co de Phone Number [facility] [place] [address] * POCT glucose (11/30/2023 12:04 PM CDT) Glucose, POC 147 70 - 199 mg/dL Blood 11/30/2023 12:0 4 PM CDT 11/30/2023 12:04 PM CDT Brennan Castillo MD LAB POCT ORDERABLES - DEVICE Fi nal Result Performing Organization Address City/[facility] Co de Phone Number [facility] [place] [address] * POCT glucose (11/30/2023 7:56 AM CDT) Glucose, POC 166 70 - 199 mg/dL Blood 11/30/2023 7:56 AM CDT 11/30/2023 7:56 AM CDT Brennan Castillo MD LAB POCT ORDERABLES - DEVICE Fi nal Result Performing Organization Address [facility] Co de Phone Number [facility] [place] [address] * POCT glucose (11/30/2023 1:56 AM CDT) Glucose, POC 170 70 - 199 mg/dL Blood 11/30/2023 1:56 AM CDT 11/30/2023 1:56 AM CDT Brennan Castillo MD LAB POCT ORDERABLES - DEVICE Fi nal Result Performing Organization Address [facility] de Phone Number [facility] Department [place] [address] * (ABNORMAL) eGFR (11/29/2023 10:32 PM CDT) Pathologist [facility] [place] eGFR 36(L) >=60 mL/min/1. 73 m2 Comment: Interpretive Data [...] Current interpretive data was last reviewed 2021. Blood 11/29/2023 10:3 2 PM CDT 11/29/2023 10:55 PM CDT Jef Rock NP LAB BLOOD ORDERABLES Final Result [facility] Department [place] [address] * (ABNORMAL) Basic metabolic panel (11/29/2023 10:32 PM CDT) Sodium 137 135 - 145 mmol/L Potassium, pl 4.1 3.3 - 4.9 mmol/L [facility] Chloride 100 97 - 110 mmol/L [facility] CO2 27 22 - 32 mmol/L [facility] Anion gap 10 2 - 15 mmol/L [facility] BUN 25 6 - 25 mg/dL [facility] Creatinine 1.50(H) 0.60 - 1.10 mg/dL [facility] Glucose 174 70 - 199 mg/dL [facility] Comment: Interpretive Data Fasting glucose >/= 126 [...] Current interpretive data was last revised 2022. Calcium 9.5 8.5 - 10.3 mg/dL [facility] Blood 11/29/2023 10:3 2 PM CDT 11/29/2023 10:55 PM CDT Jef Rock [employer] LAB BLOOD ORDERABLES Final Result Performing Organization Address [facility]/ZIP Co de Phone Number [facility] Department [place] [address] * (ABNORMAL) CBC without differential (11/29/2023 10:32 PM CDT) WBC 8.9 3.8 - 9.9 K/cumm Hgb 10.7(L) 11.9 - 15.5 g/dL [facility] Hct 33.0(L) 35.6 - 45.5 % [facility] Plt 180 150 - 400 K/cumm [facility] MPV 10.1 9.1 - 12.3 fL [facility] RBC 3.97 3.90 - 5.20 M/cumm [facility] MCV 83.1 81.3 - 96.4 fL [facility] MCH 27.0(L) 27.1 - 33.3 pg [facility] MCHC 32.4 32.3 - 35.7 g/dL [facility] RDW CV 16.5(H) 11.1 - 14.9 % [facility] RDW SD 47.9 35.7 - 48.1 fL [facility] NRBC abs 0.00 0.00 - 0.01 K/cumm [facility] Blood 11/29/2023 10:3 2 PM CDT 11/29/2023 10:55 PM CDT Jef Rock [employer] LAB BLOOD ORDERABLES Final Result [facility] Department [place] [address] * POCT glucose (11/29/2023 8:48 PM CDT) Glucose, POC 192 70 - 199 mg/dL Blood 11/29/2023 8:48 PM CDT 11/29/2023 8:48 PM CDT Brennan Castillo MD LAB POCT ORDERABLES - DEVICE Fi nal Result Performing Organization Address City/[facility] Co de Phone Number [facility] [place] [address] * POCT glucose (11/29/2023 5:21 PM CDT) Glucose, POC 175 70 - 199 mg/dL Blood 11/29/2023 5:21 PM CDT 11/29/2023 5:21 PM CDT Brennan Castillo MD LAB POCT ORDERABLES - DEVICE Fi nal Result Performing Organization Address [facility] de Phone Number [facility] [place] [address] * POCT glucose (11/29/2023 11:45 AM CDT) Glucose, POC 172 70 - 199 mg/dL Blood 11/29/2023 11:4 5 AM CDT 11/29/2023 11:45 AM CDT Brennan Castillo MD LAB POCT ORDERABLES - DEVICE Fi nal Result Performing Organization Address [facility] Co de Phone Number [facility] [place] [address] * POCT glucose (11/29/2023 7:49 AM CDT) Glucose, POC 167 70 - 199 mg/dL Blood 11/29/2023 7:49 AM CDT 11/29/2023 7:49 AM CDT us Brennan Castillo MD LAB POCT ORDERABLES - DEVICE Fi nal Result Performing Organization Address City/[facility] Co de Phone Number [facility] [place] [address] * POCT glucose (11/29/2023 3:05 AM CDT) Glucose, POC 174 70 - 199 mg/dL Blood 11/29/2023 3:05 AM CDT 11/29/2023 3:05 AM CDT Brennan Castillo MD LAB POCT ORDERABLES - DEVICE Fi nal Result [facility] Department [place] [address] * (ABNORMAL) eGFR (11/28/2023 10:30 PM CDT) eGFR 38(L) >=60 mL/min/1. 73 m2 Comment: Interpretive Data [...] Current interpretive data was last reviewed 2021. Blood 11/28/2023 10:3 0 PM CDT 11/28/2023 11:23 PM CDT Jef Rock NP LAB BLOOD ORDERABLES Final Result [facility] Department [place] [address] * (ABNORMAL) Basic metabolic panel (11/28/2023 10:30 PM CDT) [facility] Sodium 140 135 - 145 mmol/L Potassium, pl 3.9 3.3 - 4.9 mmol/L [facility] Chloride 104 97 - 110 mmol/L [facility] CO2 27 22 - 32 mmol/L [facility] Anion gap 9 2 - 15 mmol/L [facility] BUN 22 6 - 25 mg/dL [facility] Creatinine 1.44(H) 0.60 - 1.10 mg/dL [facility] Glucose 168 70 - 199 mg/dL [facility] Comment: Interpretive Data Fasting glucose >/= 126 [...] Current interpretive data was last revised 2022. Calcium 9.1 8.5 - 10.3 mg/dL [facility] Blood 11/28/2023 10:3 0 PM CDT 11/28/2023 11:23 PM CDT Jef Rock NP LAB BLOOD ORDERABLES Final Result Performing Organization Address [facility] Co de Phone Number [facility] Department [place] [address] * (ABNORMAL) CBC without differential (11/28/2023 10:30 PM CDT) WBC 9.4 3.8 - 9.9 K/cumm Hgb 10.3(L) 11.9 - 15.5 g/dL [facility] Hct 33.1(L) 35.6 - 45.5 % [facility] Plt 179 150 - 400 K/cumm [facility] MPV 10.2 9.1 - 12.3 fL [facility] RBC 3.91 3.90 - 5.20 M/cumm [facility] MCV 84.7 81.3 - 96.4 fL [facility] MCH 26.3(L) 27.1 - 33.3 pg [facility] MCHC 31.1(L) 32.3 - 35.7 g/dL [facility] RDW CV 16.6(H) 11.1 - 14.9 % [facility] RDW SD 48.7(H) 35.7 - 48.1 fL [facility] NRBC abs 0.00 0.00 - 0.01 K/cumm [facility] Blood 11/28/2023 10:3 0 PM CDT 11/28/2023 11:24 PM CDT us eJf Rock [employer] LAB BLOOD ORDERABLES Final Result Performing Organization Address [facility] Co de Phone Number [facility] [place] [address] * POCT glucose (11/28/2023 7:36 PM CDT) Pathologist [facility] [place] Glucose, POC 172 70 - 199 mg/dL Blood 11/28/2023 7:36 PM CDT 11/28/2023 7:36 PM CDT us Brennan Castillo MD LAB POCT ORDERABLES - DEVICE Fi nal Result Performing Organization Address [facility] Co de Phone Number [facility] Department [place] [address] * POCT glucose (11/28/2023 5:01 PM CDT) Glucose, POC 129 70 - 199 mg/dL Blood 11/28/2023 5:01 PM CDT 11/28/2023 5:01 PM CDT Brennan Castillo MD LAB POCT ORDERABLES - DEVICE Fi nal Result Performing Organization Address City/[facility] Co de Phone Number [facility] [place] [address] * POCT glucose (11/28/2023 11:33 AM CDT) Glucose, POC 131 70 - 199 mg/dL Blood 11/28/2023 11:3 3 AM CDT 11/28/2023 11:33 AM CDT Brennan Castillo MD LAB POCT ORDERABLES - DEVICE Fi nal Result Performing Organization Address [facility] Co de Phone Number [facility] [place] [address] * POCT glucose (11/28/2023 7:38 AM CDT) Glucose, POC 159 70 - 199 mg/dL Blood 11/28/2023 7:38 AM CDT 11/28/2023 7:38 AM CDT Brennan Castillo MD LAB POCT ORDERABLES - DEVICE Fi nal Result Performing Organization Address City/[facility] Co de Phone Number [facility] [place] [address] * POCT glucose (11/28/2023 1:26 AM CDT) Glucose, POC 172 70 - 199 mg/dL Blood 11/28/2023 1:26 AM CDT 11/28/2023 1:26 AM CDT us Brennan Castillo MD LAB POCT ORDERABLES - DEVICE Fi nal Result Performing Organization Address [facility] Co de Phone Number [facility] Department [place] [address] * (ABNORMAL) eGFR (11/27/2023 10:51 PM CDT) eGFR 36(L) >=60 mL/min/1. 73 m2 Comment: Interpretive Data [...] Current interpretive data was last reviewed 2021. Blood 11/27/2023 10:5 1 PM CDT 11/27/2023 11:30 PM CDT us Jef Rock NP LAB BLOOD ORDERABLES Final Result Performing Organization Address [facility] Co de Phone Number [facility] Department [place] [address] * (ABNORMAL) Basic metabolic panel (11/27/2023 10:51 PM CDT) [facility] Sodium 143 135 - 145 mmol/L Potassium, pl 4.0 3.3 - 4.9 mmol/L [facility] Chloride 105 97 - 110 mmol/L [facility] CO2 26 22 - 32 mmol/L [facility] Anion gap 12 2 - 15 mmol/L [facility] BUN 24 6 - 25 mg/dL [facility] Creatinine 1.51(H) 0.60 - 1.10 mg/dL [facility] Glucose 158 70 - 199 mg/dL [facility] Comment: Interpretive Data Fasting glucose >/= 126 [...] Current interpretive data was last revised 2022. Calcium 9.1 8.5 - 10.3 mg/dL [facility] Blood 11/27/2023 10:5 1 PM CDT 11/27/2023 11:30 PM CDT Jef Rock [employer] LAB BLOOD ORDERABLES Final Result [facility] Department [place] [address] * (ABNORMAL) CBC without differential (11/27/2023 10:51 PM CDT) [facility] WBC 8.3 3.8 - 9.9 K/cumm Hgb 10.2(L) 11.9 - 15.5 g/dL [facility] Hct 32.7(L) 35.6 - 45.5 % [facility] Plt 168 150 - 400 K/cumm [facility] MPV 10.2 9.1 - 12.3 fL [facility] RBC 3.89(L) 3.90 - 5.20 M/cumm [facility] MCV 84.1 81.3 - 96.4 fL [facility] MCH 26.2(L) 27.1 - 33.3 pg [facility] MCHC 31.2(L) 32.3 - 35.7 g/dL [facility] RDW CV 16.1(H) 11.1 - 14.9 % [facility] RDW SD 48.1 35.7 - 48.1 fL [facility] NRBC abs 0.00 0.00 - 0.01 K/cumm [facility] Blood 11/27/2023 10:5 1 PM CDT 11/27/2023 11:30 PM CDT Jef Rock NP LAB BLOOD ORDERABLES Final Result Performing Organization Address City/[facility]/ZIP Co de Phone Number [facility] [place] [address] * POCT glucose (11/27/2023 8:34 PM CDT) Glucose, POC 165 70 - 199 mg/dL Blood 11/27/2023 8:34 PM CDT 11/27/2023 8:34 PM CDT Brennan Castillo MD LAB POCT ORDERABLES - DEVICE Fi nal Result [facility] [place] [address] * POCT glucose (11/27/2023 5:11 PM CDT) Glucose, POC 113 70 - 199 mg/dL Blood 11/27/2023 5:11 PM CDT 11/27/2023 5:11 PM CDT Result [facility] Brennan Castillo MD LAB POCT ORDERABLES - DEVICE Fi nal Result Performing Organization Address [facility] de Phone Number [facility] [place] [address] * POCT glucose (11/27/2023 12:13 PM CDT) Glucose, POC 139 70 - 199 mg/dL Blood 11/27/2023 12:1 3 PM CDT 11/27/2023 12:13 PM CDT Brennan Castillo MD LAB POCT ORDERABLES - DEVICE Fi nal Result Performing Organization Address [facility] de Phone Number ANN [facility] [place] [address] * POCT glucose (11/27/2023 7:49 AM CDT) Glucose, POC 198 70 - 199 mg/dL Blood 11/27/2023 7:49 AM CDT 11/27/2023 7:49 AM CDT Result [facility] Brennan Castillo MD LAB POCT ORDERABLES - DEVICE Fi nal Result Performing Organization Address [facility] de Phone Number [facility] [place] [address] * (ABNORMAL) eGFR (11/26/2023 10:44 PM CDT) eGFR 32(L) >=60 mL/min/1. 73 m2 Comment: Interpretive Data [...] of Race in Diagnosing Kidney Disease, JASN 202). The CKD-EPI equation should not be used for patients with unstable renal function and has not been validated in children and those over 70. Current interpretive data was last reviewed 2021. Blood 11/26/2023 10:4 4 PM CDT 11/26/2023 11:45 PM CDT Jef Rock NP LAB BLOOD ORDERABLES Final Result [facility] Department of Laboratories [place], [place] [id number] * (ABNORMAL) Basic metabolic panel (11/26/2023 10:44 PM CDT) Sodium 141 135 - 145 mmol/L Potassium, pl 4.2 3.3 - 4.9 mmol/L [facility] Chloride 106 97 - 110 mmol/L [facility] CO2 25 22 - 32 mmol/L [facility] Anion gap 10 2 - 15 mmol/L [facility] BUN 25 6 - 25 mg/dL [facility] Creatinine 1.67(H) 0.60 - 1.10 mg/dL [facility] Glucose 194 70 - 199 mg/dL [facility] Comment: Interpretive Data Fasting glucose >/= 126 [...] Current interpretive data was last revised 2022. Calcium 8.6 8.5 - 10.3 mg/dL [facility] Blood 11/26/2023 10:4 4 PM CDT 11/26/2023 11:45 PM CDT Jef Rock NP LAB BLOOD ORDERABLES Final Result [facility] Department [place] [address] * (ABNORMAL) CBC without differential (11/26/2023 10:44 PM CDT) WBC 8.6 3.8 - 9.9 K/cumm Hgb 9.4(L) 11.9 - 15.5 g/dL [facility] Hct 29.2(L) 35.6 - 45.5 % [facility] Plt 148(L) 150 - 400 K/cumm [facility] MPV 10.2 9.1 - 12.3 fL [facility] RBC 3.47(L) 3.90 - 5.20 M/cumm [facility] MCV 84.1 81.3 - 96.4 fL [facility] MCH 27.1 27.1 - 33.3 pg [facility] MCHC 32.2(L) 32.3 - 35.7 g/dL [facility] RDW CV 15.9(H) 11.1 - 14.9 % [facility] RDW SD 47.7 35.7 - 48.1 fL [facility] NRBC abs 0.00 0.00 - 0.01 K/cumm [facility] Blood 11/26/2023 10:4 4 PM CDT 11/26/2023 11:44 PM CDT Jef Rock [employer] LAB BLOOD ORDERABLES Final Result Performing Organization Address City/[facility] Co de Phone Number [facility] [place] [address] * POCT glucose (11/26/2023 7:44 PM CDT) Glucose, POC 191 70 - 199 mg/dL Blood 11/26/2023 7:44 PM CDT 11/26/2023 7:44 PM CDT Result [facility] Brennan Castillo MD LAB POCT ORDERABLES - DEVICE Fi nal Result Performing Organization Address [facility] Co de Phone Number [facility] [place] [address] * (ABNORMAL) POCT glucose (11/26/2023 5:18 PM CDT) Glucose, POC 208(H) 70 - 199 mg/dL Blood 11/26/2023 5:18 PM CDT 11/26/2023 5:18 PM CDT Result [facility] Brennan Castillo MD LAB POCT ORDERABLES - DEVICE Fi nal Result Performing Organization Address [facility] Co de Phone Number [facility] [place] [address] * POCT glucose (11/26/2023 11:53 AM CDT) Glucose, POC 169 70 - 199 mg/dL Blood 11/26/2023 11:5 3 AM CDT 11/26/2023 11:53 AM CDT Brennan Castillo MD LAB POCT ORDERABLES - DEVICE Fi nal Result Performing Organization Address City/[facility] Co de Phone Number [facility] [place] [address] * XR Spine Cervical 2 or 3 Views (11/26/2023 10:18 AM CDT) Anatomical Region Laterality Modality Spine N/A Computed Radiogr aphy 11/26/2023 11:1 8 AM CDT Impressions 11/26/2023 3:21 PM CDT Interval posterior instrumented fusion from C5 to T2. Dictated by: Butch Bowers MD The radiology attending physician has personally reviewed this study, and had reviewed and/or edited this written report and agrees with it. Electronically signed by: Milind Nuñez MD Narrative 11/26/2023 3:21 PM CDT EXAMINATION: XR SPINE CERVICAL 2 OR 3 VIEWS HISTORY: s/p posterior cervical fusion COMPARISON: 09/16/2023. FINDINGS: There are changes of posterior instrumented fusion from C5 to T2. There is soft tissue drain in place. ??No prevertebral soft tissue swelling. ??There is mature bony fusion of the lower cervical vertebral bodies from prior anterior cervical discectomy and fusion. Procedure Note Milind Nuñez MD - 11/26/2023 EXAMINATION: XR SPINE CERVICAL 2 OR 3 VIEWS HISTORY: s/p posterior cervical fusion COMPARISON: 09/16/2023. FINDINGS: There are changes of posterior instrumented fusion from C5 to T2. There is soft tissue drain in place. No prevertebral soft tissue swelling. There is mature bony fusion of the lower cervical vertebral bodies from prior anterior cervical discectomy and fusion. IMPRESSION: Interval posterior instrumented fusion from C5 to T2. Dictated by: Butch Bowers MD The radiology attending physician has personally reviewed this study, and had reviewed and/or edited this written report and agrees with it. Electronically signed by: Milind Nuñez MD Brennan Castillo MD IMG XR PROCEDURES Final Result * POCT glucose (11/26/2023 8:09 AM CDT) Glucose, POC 157 70 - 199 mg/dL Blood 11/26/2023 8:09 AM CDT 11/26/2023 8:09 AM CDT Brennan Castillo MD LAB POCT ORDERABLES - DEVICE Fi nal Result Performing Organization Address [facility] Co de Phone Number [facility] [place] [address] * POCT glucose (11/26/2023 1:22 AM CDT) Glucose, POC 185 70 - 199 mg/dL Blood 11/26/2023 1:22 AM CDT 11/26/2023 1:22 AM CDT Brennan Castillo MD LAB POCT ORDERABLES - DEVICE Fi nal Result Performing Organization Address [facility] de Phone Number [facility] [place] [address] * (ABNORMAL) POCT glucose (11/25/2023 8:07 PM CDT) Glucose, POC 217(H) 70 - 199 mg/dL Blood 11/25/2023 8:07 PM CDT 11/25/2023 8:07 PM CDT Brennan Castillo MD LAB POCT ORDERABLES - DEVICE Fi nal Result Performing Organization Address [facility] de Phone Number [facility] [place] [address] * Type and screen (11/25/2023 8:07 PM CDT) ABO Rh B Positive Janeth, indirect Negative [facility] Blood 11/25/2023 8:07 PM CDT 11/25/2023 8:58 PM CDT Narrative [facility] - 11/25/2023 9:55 PM CDT Has the patient had Daratumumab or Isatuximab in the past 6 months?->Unknown Brennan Castillo MD LAB BLOOD BANK TEST ORDERABLES Final Result Performing Organization Address City/[facility]/ZIP Co de Phone Number [facility] [place] [address] * POCT glucose (11/25/2023 4:41 PM CDT) Glucose, POC 181 70 - 199 mg/dL Blood 11/25/2023 4:41 PM CDT 11/25/2023 4:41 PM CDT Brennan Castillo MD LAB POCT ORDERABLES - DEVICE Fi nal Result Performing Organization Address [facility] Co de Phone Number [facility] [place] [address] * POCT glucose (11/25/2023 12:07 PM CDT) Glucose, POC 165 70 - 199 mg/dL Blood 11/25/2023 12:0 7 PM CDT 11/25/2023 12:07 PM CDT Brennan Castillo MD LAB POCT ORDERABLES - DEVICE Fi nal Result Performing Organization Address [facility] Co de Phone Number [facility] [place] [address] * POCT glucose (11/25/2023 9:59 AM CDT) Glucose, POC 138 70 - 199 mg/dL Blood 11/25/2023 9:59 AM CDT 11/25/2023 9:59 AM CDT Brennan Castillo MD LAB POCT ORDERABLES - DEVICE Fi nal Result Performing Organization Address City/[facility] Co de Phone Number [facility] [place] [address] * POCT glucose (11/25/2023 8:55 AM CDT) Glucose, POC 122 70 - 199 mg/dL Blood 11/25/2023 8:55 AM CDT 11/25/2023 8:55 AM CDT Brennan Castillo MD LAB POCT ORDERABLES - DEVICE Fi nal Result Performing Organization Address City/[facility] Co de Phone Number [facility] [place] [address] * POCT glucose (11/25/2023 8:04 AM CDT) Glucose, POC 128 70 - 199 mg/dL Blood 11/25/2023 8:04 AM CDT 11/25/2023 8:04 AM CDT Brennan Castillo MD LAB POCT ORDERABLES - DEVICE Fi nal Result Performing Organization Address [facility] Co de Phone Number [facility] [place] [address] * POCT glucose (11/25/2023 7:13 AM CDT) Glucose, POC 131 70 - 199 mg/dL Blood 11/25/2023 7:13 AM CDT 11/25/2023 7:13 AM CDT Brennan Castillo MD LAB POCT ORDERABLES - DEVICE Fi nal Result Performing Organization Address City/[facility] [place] [address] * POCT glucose (11/25/2023 6:22 AM CDT) Glucose, POC 128 70 - 199 mg/dL Blood 11/25/2023 6:22 AM CDT 11/25/2023 6:22 AM CDT Brennan Castillo MD LAB POCT ORDERABLES - DEVICE Fi nal Result Performing Organization Address [facility] Co de Phone Number [facility] [place] [address] * POCT glucose (11/25/2023 5:18 AM CDT) Glucose, POC 147 70 - 199 mg/dL Blood 11/25/2023 5:18 AM CDT 11/25/2023 5:18 AM CDT Brennan Castillo MD LAB POCT ORDERABLES - DEVICE Fi nal Result Performing Organization Address [facility] de Phone Number [facility] [place] [address] * (ABNORMAL) eGFR (11/25/2023 4:39 AM CDT) eGFR 44(L) >=60 mL/min/1. 73 m2 Comment: Interpretive Data [...] of Race in Diagnosing Kidney Disease, JASN 202). The CKD-EPI equation should not be used for patients with unstable renal function and has not been validated in children and those over 70. Current interpretive data was last reviewed 2021. Blood 11/25/2023 4:39 AM CDT 11/25/2023 4:45 AM CDT us Brennan Castillo MD LAB BLOOD ORDERABLES Final Resu lt [facility] Department [place] [address] * (ABNORMAL) Basic metabolic panel (11/25/2023 4:39 AM CDT) Sodium 141 135 - 145 mmol/L Potassium, pl 4.3 3.3 - 4.9 mmol/L [facility] Chloride 106 97 - 110 mmol/L [facility] CO2 26 22 - 32 mmol/L [facility] Anion gap 9 2 - 15 mmol/L [facility] BUN 16 6 - 25 mg/dL [facility] Creatinine 1.28(H) 0.60 - 1.10 mg/dL [facility] Glucose 137 70 - 199 mg/dL [facility] Comment: Interpretive Data Fasting glucose >/= 126 [...] Current interpretive data was last revised 2022. Calcium 8.5 8.5 - 10.3 mg/dL [facility] Blood 11/25/2023 4:39 AM CDT 11/25/2023 4:45 AM CDT Brennan Castillo MD LAB BLOOD ORDERABLES Final Resu lt Performing Organization Address City/[facility] Co de Phone Number [facility] Department [place] [address] * (ABNORMAL) CBC without differential (11/25/2023 4:39 AM CDT) WBC 18.6(H) 3.8 - 9.9 K/cumm Hgb 10.9(L) 11.9 - 15.5 g/dL [facility] Hct 33.4(L) 35.6 - 45.5 % [facility] Plt 244 150 - 400 K/cumm [facility] MPV 9.7 9.1 - 12.3 fL [facility] RBC 4.08 3.90 - 5.20 M/cumm [facility] MCV 81.9 81.3 - 96.4 fL [facility] MCH 26.7(L) 27.1 - 33.3 pg [facility] MCHC 32.6 32.3 - 35.7 g/dL [facility] RDW CV 14.9 11.1 - 14.9 % [facility] RDW SD 44.2 35.7 - 48.1 fL [facility] NRBC abs 0.00 0.00 - 0.01 K/cumm [facility] Blood 11/25/2023 4:39 AM CDT 11/25/2023 4:46 AM CDT Brennan Castillo MD LAB BLOOD ORDERABLES Final Resu lt [facility] Department [place] [address] * POCT glucose (11/25/2023 4:00 AM CDT) Glucose, POC 135 70 - 199 mg/dL Blood 11/25/2023 4:00 AM CDT 11/25/2023 4:00 AM CDT Brennan Castillo MD LAB POCT ORDERABLES - DEVICE Fi nal Result Performing Organization Address City/[facility] Co de Phone Number [facility] [place] [address] * POCT glucose (11/25/2023 2:00 AM CDT) Glucose, POC 137 70 - 199 mg/dL Blood 11/25/2023 2:00 AM CDT 11/25/2023 2:00 AM CDT Brennan Castillo MD LAB POCT ORDERABLES - DEVICE Fi nal Result Performing Organization Address [facility] [place] [address] * POCT glucose (11/25/2023 12:56 AM CDT) Glucose, POC 119 70 - 199 mg/dL Blood 11/25/2023 12:5 6 AM CDT 11/25/2023 12:56 AM CDT Brennan Castillo MD LAB POCT ORDERABLES - DEVICE Fi nal Result Performing Organization Address [facility] Co de Phone Number [facility] [place] [address] * POCT glucose (11/24/2023 11:16 PM CDT) Glucose, POC 140 70 - 199 mg/dL Blood 11/24/2023 11:1 6 PM CDT 11/24/2023 11:16 PM CDT Brennan Castillo MD LAB POCT ORDERABLES - DEVICE Fi nal Result Performing Organization Address [facility] Co de Phone Number [facility] [place] [address] * Transfuse RBC (11/24/2023 11:15 PM CDT) Blood Brennan Castillo MD BLOOD TRANSFUSION ORDERABLES Fi nal Result Performing Organization Address [facility] de Phone Number ANN PRICE [facility] [place] [address] * Transfuse RBC: 1 Units (11/24/2023 11:15 PM CDT) Blood Brennan Castillo MD BLOOD TRANSFUSION ORDERABLES Fi nal Result * POCT glucose (11/24/2023 10:03 PM CDT) Glucose, POC 118 70 - 199 mg/dL Blood 11/24/2023 10:0 3 PM CDT 11/24/2023 10:03 PM CDT Result [facility] Brennan Castillo MD LAB POCT ORDERABLES - DEVICE Fi nal Result Performing Organization Address [facility] de Phone Number ANN [facility] [place] [address] * (ABNORMAL) eGFR (11/24/2023 10:01 PM CDT) eGFR 43(L) >=60 mL/min/1. 73 [...] Current interpretive data was last reviewed 2021. Blood 11/24/2023 10:0 1 PM CDT 11/24/2023 10:25 PM CDT Brennan Castillo MD LAB BLOOD ORDERABLES Final Resu lt Performing Organization Address [facility] de Phone Number [facility] Department [place] [address] * (ABNORMAL) aPTT (11/24/2023 10:01 PM CDT) aPTT 46(H) 28 - 38 sec Comment: Interpretive Data Heparin therapeutic range: 66.0 - 100.0 seconds. Range based on correlation with therapeutic heparin activity range of 0.3 - 0.7 Units/mL. Current interpretive data was last revised on 2023. Blood 11/24/2023 10:0 1 PM CDT 11/24/2023 10:28 PM CDT Brennan Castillo MD LAB BLOOD ORDERABLES Final Resu lt Performing Organization Address [facility] Co de Phone Number [facility] Department [place] [address] * Protime-INR (11/24/2023 10:01 PM CDT) Pathologist [facility] PT 12.2 10.3 - 13.7 sec INR 1.07 0.90 - 1.20 [facility] Comment: Interpretive data Oral anticoagulant therapeutic ranges: Venous thromboembolism prophylaxis or treatment: 2.0-3.0 CARDIOLOGY Standard range: 2.0-3.0 High-intensity range: 2.5-3.5 Refer to indication-specific guidelines for appropriate target ranges for prosthetic heart valve replacement. Current interpretive data was last revised on 2019. Blood 11/24/2023 10:0 1 PM CDT 11/24/2023 10:28 PM CDT us Brennan Castillo MD LAB BLOOD ORDERABLES Final Resu lt [facility] Department [place] [address] * (ABNORMAL) Basic metabolic panel (11/24/2023 10:01 PM CDT) [facility] Signature Sodium 142 135 - 145 mmol/L Potassium, pl 4.2 3.3 - 4.9 mmol/L [facility] Chloride 107 97 - 110 mmol/L [facility] CO2 26 22 - 32 mmol/L [facility] Anion gap 9 2 - 15 mmol/L [facility] BUN 16 6 - 25 mg/dL [facility] Creatinine 1.30(H) 0.60 - 1.10 mg/dL [facility] Glucose 142 70 - 199 mg/dL [facility] Comment: Interpretive Data Fasting glucose >/= 126 [...] Current interpretive data was last revised 2022. Calcium 9.0 8.5 - 10.3 mg/dL [facility] Blood 11/24/2023 10:0 1 PM CDT 11/24/2023 10:25 PM CDT Brennan Castillo MD LAB BLOOD ORDERABLES Final Resu lt Performing Organization Address City/[facility]/ZIP Co de Phone Number [facility] Department [place] [address] * (ABNORMAL) CBC without differential (11/24/2023 10:01 PM CDT) WBC 17.3(H) 3.8 - 9.9 K/cumm Hgb 11.5(L) 11.9 - 15.5 g/dL [facility] Hct 35.8 35.6 - 45.5 % [facility] Plt 227 150 - 400 K/cumm [facility] MPV 10.0 9.1 - 12.3 fL [facility] RBC 4.35 3.90 - 5.20 M/cumm [facility] MCV 82.3 81.3 - 96.4 fL [facility] MCH 26.4(L) 27.1 - 33.3 pg [facility] MCHC 32.1(L) 32.3 - 35.7 g/dL [facility] RDW CV 14.8 11.1 - 14.9 % [facility] RDW SD 44.0 35.7 - 48.1 fL [facility] NRBC abs 0.00 0.00 - 0.01 K/cumm [facility] Blood 11/24/2023 10:0 1 PM CDT 11/24/2023 10:25 PM CDT Brennan Castillo MD LAB BLOOD ORDERABLES Final Resu lt [facility] [place] [address] * POCT glucose (11/24/2023 9:07 PM CDT) Glucose, POC 162 70 - 199 mg/dL Blood 11/24/2023 9:07 PM CDT 11/24/2023 9:07 PM CDT Brennan Castillo MD LAB POCT ORDERABLES - DEVICE Fi nal Result Performing Organization Address [facility] Co de Phone Number [facility] [place] [address] * POCT glucose (11/24/2023 8:00 PM CDT) Glucose, POC 154 70 - 199 mg/dL Blood 11/24/2023 8:00 PM CDT 11/24/2023 8:00 PM CDT Brennan Castillo MD LAB POCT ORDERABLES - DEVICE Fi nal Result Performing Organization Address [facility] Co de Phone Number [facility] Department [place] [address] * POCT glucose (11/24/2023 6:58 PM CDT) Glucose, POC 196 70 - 199 mg/dL Blood 11/24/2023 6:58 PM CDT 11/24/2023 6:58 PM CDT Brennan Castillo MD LAB POCT ORDERABLES - DEVICE Fi nal Result Performing Organization Address [facility] [place] [address] * Prepare RBC: 1 Units (11/24/2023 6:19 PM CDT) Product code [id number] Unit Number [id number] [facility] Product Blood Type BNEG [facility] Dispense Status PRESUMED TRANSFUSED [facility] Blood 11/24/2023 6:19 PM CDT 11/24/2023 6:19 PM CDT Narrative [facility] - 11/25/2023 12:49 AM CDT Other indication->cervical myelopathy Are special requirements needed? (All products are leukoreduced and CMV- safe)- >No Date required:-[id number] [facility] # of [id number] Reasons:-Other (specify)} Brennan Castillo MD BLOOD BANK PRODUCT ORDERABLES F inal Result Performing Organization Address City/[facility]/ZIP Co de Phone Number [facility] [place] [address] * POCT glucose (11/24/2023 6:06 PM CDT) Glucose, POC 147 70 - 199 mg/dL Blood 11/24/2023 6:06 PM CDT 11/24/2023 6:06 PM CDT Brennan Castillo MD LAB POCT ORDERABLES - DEVICE Fi nal Result Performing Organization Address [facility] Co de Phone Number [facility] [place] [address] * (ABNORMAL) POC Blood Gas and Chemistries, Arterial - (11/24/2023 4:55 PM CDT) pH, Art POC 7.34(L) 7.35 - 7.45 pCO2, Art POC 49(H) 35 - 45 mmHg [facility] pO2, Art POC 176(H) 83 - 108 mmHg [facility] Na, POC 140 135 - 145 mmol/L [facility] K POC 4.1 3.3 - 4.9 mmol/L [facility] Comment: Interpretive Data Not all point of care methods assess for hemolysis. Confirm with instrument and retest K+ if not consistent with clinical signs and symptoms. Current Interpretive Data was last revised on 2023. Cl, POC 108 97 - 110 mmol/L [facility] Ionized Ca, POC 4.91 4.50 - 5.10 mg/dL [facility] Glucose, POC 174 70 - 199 mg/dL [facility] Lactate, POC 1.3 0.7 - 2.2 mmol/L [facility] SO2 (mono) arterial 100(H) 90 - 95 % [facility] Base excess, POC 0.3 mmol/L [facility] HCO3, Art POC 26 20 - 30 mmol/L [facility] Hct, POC 29.0(L) 36.3 - 45.3 % [facility] O2 Sat, Art POC (Calc) 100 % [facility] Total Hb, POC 9.6(L) 11.9 - 15.5 g/dL [facility] Blood 11/24/2023 4:55 PM CDT 11/24/2023 4:55 PM CDT Brennan Castillo MD LAB POCT ORDERABLES - DEVICE Fi nal Result Performing Organization Address [facility] Co de Phone Number [facility] Department [place] [address] * Transfuse RBC (11/24/2023 4:52 PM CDT) Blood Amarilys Boss MD PhD BLOOD TRANSFUSION ORDERABLES Final Result Performing Organization Address [facility] Co de Phone Number [facility] [place] [address] * FL Fluoroscopy < 1 Hour (11/24/2023 4:31 PM CDT) Narrative [email or web address] - 11/24/2023 4:31 PM CDT The images from this study are not interpreted by Radiology. ??Please refer to the physician's procedure / OR operative note. Brennan Castillo MD IMG FLUOROSCOPY PROCEDURES Jessica l Result Performing Organization Address [facility] Co de Phone Number [email or web address] * (ABNORMAL) POC Blood Gas and Chemistries, Arterial - (11/24/2023 3:20 PM CDT) [facility] pH, Art POC 7.36 7.35 - 7.45 pCO2, Art POC 44 35 - 45 mmHg [facility] pO2, Art POC 220(H) 83 - 108 mmHg [facility] Na, POC 141 135 - 145 mmol/L [facility] K POC 3.5 3.3 - 4.9 mmol/L [facility] Comment: Interpretive Data Not all point of care methods assess for hemolysis. Confirm with instrument and retest K+ if not consistent with clinical signs and symptoms. Current Interpretive Data was last revised on 2023. Cl, POC 107 97 - 110 mmol/L [facility] Ionized Ca, POC 5.00 4.50 - 5.10 mg/dL [facility] Glucose, POC 155 70 - 199 mg/dL [facility] Lactate, POC 1.2 0.7 - 2.2 mmol/L [facility] SO2 (mono) arterial 99(H) 90 - 95 % [facility] Base excess, POC -0.6 mmol/L [facility] HCO3, Art POC 25 20 - 30 mmol/L [facility] Hct, POC 26.0(L) 36.3 - 45.3 % [facility] O2 Sat, Art POC (Calc) 100 % [facility] Total Hb, POC 8.8(L) 11.9 - 15.5 g/dL [facility] Blood 11/24/2023 3:20 PM CDT 11/24/2023 3:20 PM CDT us Brennan Castillo MD LAB POCT ORDERABLES - DEVICE Fi nal Result [facility] Department [place] [address] * Prepare RBC: 1 Units (11/24/2023 3:09 PM CDT) [facility] Product code [id number] Unit Number [id number] [facility] Product Blood Type BNEG [facility] Dispense Status PRESUMED TRANSFUSED [facility] Blood 11/24/2023 3:09 PM CDT 11/24/2023 3:09 PM CDT Narrative [facility] - 11/25/2023 12:49 AM CDT Are special requirements needed? (All products are leukoreduced and CMV- safe)- >No Date required:-[id number] LRRBC # of [id number] Reasons:-Intra-op transfusion} Result [facility] Amarilys Boss MD PhD BLOOD BANK PRODUCT ORDERABLES Final Result Performing Organization Address [facility] de Phone Number [facility] [place] [address] * POCT glucose (11/24/2023 2:29 PM CDT) Glucose, POC 154 70 - 199 mg/dL Blood 11/24/2023 2:29 PM CDT 11/24/2023 2:29 PM CDT Result [facility] Brennan Castillo MD LAB POCT ORDERABLES - DEVICE Fi nal Result Performing Organization Address [facility] Co de Phone Number [facility] [place] [address] * Check Sample (11/24/2023 12:07 PM CDT) ABO Rh B Positive [facility] HCLL OTHER 11/24/2023 12:0 7 PM CDT 11/24/2023 12:46 PM CDT Result [facility] Brennan Castillo MD LAB BLOOD ORDERABLES Final Resu lt Performing Organization Address [facility] de Phone Number [facility] [place] [address] [facility] * POCT glucose (11/24/2023 12:03 PM CDT) Glucose, POC 179 70 - 199 mg/dL Blood 11/24/2023 12:0 3 PM CDT 11/24/2023 12:03 PM CDT us Brennan Castillo MD LAB POCT ORDERABLES - DEVICE Fi nal Result [facility] Department [place] [address] documented in this encounter Visit Diagnoses Diagnosis Cervicalgia- Primary Cervical stenosis of spine Spinal stenosis in cervical region documented in this encounter Admitting Diagnoses Diagnosis Cervicalgia Cervical stenosis of spine Spinal stenosis in cervical region documented in this encounter Administered Medications Inactive Administered Medications - up to 3 most recent administrations Medication Order MAR Action Action Date Dose Rate Site acetaminophen (TYLENOL) tablet 1,000 mg 1,000 mg, oral, Once, On Fri11/24/23 at 1215, For 1 dose, Pre-Op, Administer 60 minutes prior to surgery. Given 11/24/2023 11:46 AM CDT 1,000 mg acetaminophen (TYLENOL) tablet 1,000 mg 1,000 mg, oral, Every 6 hours scheduled, First dose on Fri11/25/23 at 1845 Given 12/04/2023 12:34 PM CDT 1,000 mg Given 12/04/2023 5:31 AM CDT 1,000 mg Given 12/03/2023 11:52 PM CDT 1,000 mg albuterol HFA (PROVENTIL HFA,VENTOLIN HFA,PROAIR HFA) 90 mcg/actuation inhaler 2 puff 2 puff, inhalation, Every 6 hours PRN (emergency response coordinator), wheezing, Starting on Fri11/25/23 at 1814 bisacodyL (DULCOLAX) suppository 10 mg 10 mg, rectal, Daily, First dose (after last modification) on Fri11/28/23 at 1015, Indications: constipationIndications:constipation Given 12/03/2023 8:46 AM CDT 10 mg Given 11/30/2023 8:36 AM CDT 10 mg Given 11/28/2023 2:25 PM CDT 10 mg ceFAZolin (ANCEF) 2,000 mg/20 mL in sterile water (premix) 2,000 mg 2,000 mg, intravenous, at 400 mL/hr, Administer over 3 Minutes, Every 8 hours, First dose on Fri11/24/23 at 2200, For 2 doses, Beginning 8 hours after last edelmira-procedural dose., Indications: Prophylaxis, SurgicalIndications:Prophylaxis, Surgical Given 11/25/2023 6:11 AM CDT 2,000 mg 400 mL/hr Given 11/24/2023 10:50 PM CDT 2,000 mg 400 mL/hr cloNIDine (CATAPRES) tablet 0.1 mg 0.1 mg, oral, 2 times daily, First dose on Fri11/25/23 at 0900, Indications: hypertensionIndications:hypertension Given 12/04/2023 9:39 AM CDT 0.1 mg Given 12/03/2023 9:28 PM CDT 0.1 mg Given 12/03/2023 8:46 AM CDT 0.1 mg cyclobenzaprine (FLEXERIL) tablet 5 mg 5 mg, oral, 3 times daily PRN, muscle spasms, Starting on Fri11/26/23 at 0942 Given 12/04/2023 9:39 AM CDT 5 mg Given 12/03/2023 2:39 PM CDT 5 mg Given 12/03/2023 8:46 AM CDT 5 mg enoxaparin (LOVENOX) syringe 30 mg 30 mg, subcutaneous, Daily (for enoxaparin), First dose on Fri11/25/23 at 2100, Indications: Deep Vein Thrombosis PreventionIndications:Deep Vein Thrombosis Prevention Given 12/02/2023 8:45 PM CDT 30 mg Left Lower Abdomen Given 12/01/2023 8:34 PM CDT 30 mg Le ft Lower Abdomen Given 11/30/2023 8:30 PM CDT 30 mg Le ft Lower Abdomen enoxaparin (LOVENOX) syringe 30 mg 30 mg, subcutaneous, Daily (for enoxaparin), First dose on Fri12/03/23 at 2100, Indications: Deep Vein Thrombosis PreventionIndications:Deep Vein Thrombosis Prevention Given 12/03/2023 9:28 PM CDT 30 mg Left Lower Abdomen famotidine (PEPCID) tablet 10 mg 10 mg, oral, Daily, First dose (after last modification) on Fri12/04/23 at 0900, Indications: non-bleeding gastric disorderIndications:non-bleedi ng gastric disorder Given 12/04/2023 9:39 AM CDT 10 mg famotidine (PEPCID) tablet 20 mg 20 mg, oral, 2 times daily, First dose on Fri11/25/23 at 0900, Indications: non-bleeding gastric disorderIndications:non-bleedi ng gastric disorder Given 12/03/2023 8:46 AM CDT 20 mg Given 12/02/2023 8:45 PM CDT 20 mg Given 12/02/2023 8:49 AM CDT 20 mg fluticasone propionate (FLONASE) 50 mcg/actuation nasal spray 2 spray 2 spray, each nostril, Daily, First dose on Fri11/26/23 at 0900 Given 12/04/2023 9:43 AM CDT 2 sprays Given 12/03/2023 8:48 AM CDT 2 sprays Given 12/02/2023 8:51 AM CDT 2 sprays furosemide (LASIX) tablet 40 mg 40 mg, oral, Daily, First dose on Fri11/27/23 at 1230, On hold since Fri12/03/2023 at 0752 until manually unheld Given 12/02/2023 8:49 AM CDT 40 mg Given 12/01/2023 8:48 AM CDT 40 mg Given 11/30/2023 8:36 AM CDT 40 mg gabapentin (NEURONTIN) capsule 100 mg 100 mg, oral, 3 times daily, First dose on Fri11/24/23 at 2130, Phase I & Post-op Floor, Indications: Neuropathic PainIndications:Neuropathic Pain Given 12/04/2023 3:33 PM CDT 100 mg Given 12/04/2023 9:39 AM CDT 100 mg Given 12/03/2023 9:29 PM CDT 100 mg gabapentin (NEURONTIN) capsule 300 mg 300 mg, oral, Once, On Fri11/24/23 at 1215, For 1 dose, Pre-Op, Administer 60 minutes prior to surgery. Given 11/24/2023 11:46 AM CDT 300 mg HYDROmorphone (DILAUDID) injection 0.2 mg 0.2 mg, intravenous, Administer over 2 Minutes, Every 10 min PRN, 1st line for pain, Starting on Fri11/24/23 at 1839, Phase I, Notify Anesthesiologist if total PACU dose reaches 2 mg and pain score 5/10 or more., Indications: PainIndications:Pain Given 11/25/2023 7:37 AM CDT 0.2 mg Given 11/25/2023 6:15 AM CDT 0.2 mg Given 11/25/2023 12:53 AM CDT 0.2 mg insulin glargine (LANTUS, SEMGLEE) 100 unit/mL injection 15 Units 15 Units, subcutaneous, Nightly, First dose (after last modification) on Fri11/27/23 at 2100, Do not hold if NPO. Decreased per Endo on 11/27/2023 Do not mix with other insulins, Indications: Diabetes MellitusIndications:Diabetes Mellitus Given 11/30/2023 8:30 PM CDT 15 Units Left Lower Abdomen Given 11/29/2023 9:11 PM CDT 15 Units Le ft Lower Abdomen Given 11/28/2023 9:41 PM CDT 15 Units Le ft Lower Abdomen insulin glargine (LANTUS, SEMGLEE) 100 unit/mL injection 16 Units 16 Units (rounded from 15.645 Units = 0.15 Units/kg ? 104.3 kg), subcutaneous, Nightly, First dose on Fri11/25/23 at 2315, Do not hold if NPO. Do not mix with other insulins, Indications: Diabetes MellitusIndications:Diabetes Mellitus Given 11/26/2023 9:52 PM CDT 16 Units Left Upper Arm Given 11/25/2023 11:11 PM CDT 16 Units L eft Lower Abdomen insulin glargine (LANTUS, SEMGLEE) 100 unit/mL injection 16 Units 16 Units, subcutaneous, Nightly, First dose (after last modification) on Fri12/01/23 at 2100, Do not hold if NPO. Decreased per Endo on 11/27/2023 Do not mix with other insulins, Indications: Diabetes MellitusIndications:Diabete s Mellitus Given 12/03/2023 9:29 PM CDT 16 Units Right Lower Abdomen Given 12/02/2023 8:45 PM CDT 16 Units Le ft Lower Abdomen Given 12/01/2023 8:35 PM CDT 16 Units Le ft Lower Abdomen insulin lispro (HumaLOG, ADMELOG) 100 unit/mL injection 0-4 Units 0-4 Units, subcutaneous, Nightly, First dose on Fri11/25/23 at 2315, Blood glucose mg/dL: 199 or less: No insulin 200-249: add 1 unit 250-299: add 2 units 300-349: add 3 units and notify physician for adjustment of insulin orders. 350-399: add 4 units and notify physician for adjustment of insulin orders. Over 400: Notify physician for adjustment of insulin orders. Do NOT hold for NPO Status, Indications: Diabetes MellitusIndications:Diabetes Mellitus Given 11/25/2023 11:11 PM CDT 1 Units Left Lower Abdomen insulin lispro (HumaLOG, ADMELOG) 100 unit/mL injection 0-5 Units 0-5 Units, subcutaneous, Every 4 hours scheduled, First dose on Fri11/25/23 at 1200, Phase I, Blood glucose mg/dL: 149 or less: No insulin 150-199: add 1 unit 200-249: add 2 units 250-299: add 3 units 300-349: add 4 units and notify physician for adjustment of insulin orders. 350-399: add 5 units and notify physician for adjustment of insulin orders. Over 400: Notify physician for adjustment of insulin orders. Do NOT hold for NPO Status, Indications: Diabetes MellitusIndications:Diabetes Mellitus Given 11/25/2023 12:10 PM CDT 1 Units Left Lower Abdomen insulin lispro (HumaLOG, ADMELOG) 100 unit/mL injection 0-5 Units 0-5 Units, subcutaneous, 3 times daily with meals, First dose on Fri11/26/23 at 0800, Blood glucose mg/dL: 149 or less: No insulin 150-199: add 1 unit 200-249: add 2 units 250-299: add 3 units 300-349: add 4 units and notify physician for adjustment of insulin orders. 350-399: add 5 units and notify physician for adjustment of insulin orders. Over 400: Notify physician for adjustment of insulin orders. Do NOT hold for NPO Status, Indications: Diabetes MellitusIndications:Diabetes Mellitus Given 12/02/2023 11:59 AM CDT 2 Units Left Lower Abdomen Given 12/02/2023 8:50 AM CDT 1 Units Le ft Lower Abdomen Given 12/01/2023 11:58 AM CDT 1 Units R ight Hand insulin lispro (HumaLOG, ADMELOG) 100 unit/mL injection 5 Units 5 Units (rounded from 5.215 Units = 0.05 Units/kg ? 104.3 kg), subcutaneous, 3 times daily with meals, First dose on Fri11/26/23 at 0800, If BG greater than or equal to 100 mg/dL, give dose with meals when tray arrives in the room. If BG less than 100 mg/dL or history of poor intake, give after meals. If patient eating less than 50% of meal, call MD for holding or reducing meal insulin dose. Hold prandial insulin if NPO, unable to eat, or if BG less than 70 mg/dL., Indications: Diabetes MellitusIndications:Diabetes Mellitus Given 11/26/2023 5:28 PM CDT 5 Units Left Lower Abdomen Given 11/26/2023 12:14 PM CDT 5 Units L eft Upper Arm Given 11/26/2023 8:50 AM CDT 5 Units Le ft Upper Arm insulin lispro (HumaLOG, ADMELOG) 100 unit/mL injection 6 Units 6 Units, subcutaneous, 3 times daily with meals, First dose (after last modification) on Fri11/27/23 at 0800, If BG greater than or equal to 100 mg/dL, give dose with meals when tray arrives in the room. If BG less than 100 mg/dL or history of poor intake, give after meals. If patient eating less than 50% of meal, call MD for holding or reducing meal insulin dose. Hold prandial insulin if NPO, unable to eat, or if BG less than 70 mg/dL., Indications: Diabetes MellitusIndications:Diabetes Mellitus Given 12/04/2023 12:34 PM CDT 6 Units Left Upper Arm Given 12/04/2023 9:39 AM CDT 6 Units Le ft Lower Abdomen Given 12/03/2023 5:10 PM CDT 6 Units Le ft Lower Abdomen insulin regular in 0.9% sodium chloride (MYXREDLIN) 100 unit/100 mL (1 unit/mL) infusion (premix) 0-30 Units/hr (0-30 mL/hr), 1 units/mL, intravenous, Titrated, Starting on Fri11/24/23 at 1500, Until Fri11/24/23 at 1839, Indications: Hyperglycemia, NON-WEIGHT BASED DOSING Blood Glucose (BG) - BG DECREASED OR SAME as last value: Less than 70 mg/dL - Stop insulin infusion *(see below for drip reinitiation instructions). Follow hypoglycemia orders. Notify covering MD. 70 - 100 mg/dL - Stop infusion *(see below for drip reinitiation instructions). Resume BG Q 1 hour. 101 - 160 mg/dL - If BG decreased by greater than or equal to 40 mg/dL, decrease infusion by 50% or stop infusion if less than or equal to 2 units/hour *(see below for drip reinitiation instructions). Resume BG Q 1 hour. If BG decreased less than 40 mg/dL, continue same rate. 161 - 200 mg/dL- If BG decreased by greater than or equal to 60 mg/dL, decrease infusion by 50% or stop infusion if less than or equal to 2 units/hour *(see below for drip reinitiation instructions). Resume BG Q 1 hour. If BG decreased less than 60 mg/dL, continue same rate. 201 - 250 mg/dl - If BG decreased by greater than or equal to 60 mg/dL continue same rate. If decreased by less than 60 mg/dL, increase by 1 unit/hr. 251 - 300 mg/dL - Increase by 2 units/hour. 301 - 349 mg/dL - Increase by 2 units/hour. 350 - 400 mg/dL - Increase by 3 units/hr. Greater than 400 mg/dL - Notify covering MD Blood Glucose (BG) - Blood glucose INCREASED since last value: 70 - 100 mg/dL - Continue to hold infusion 101 - 160 mg/dL - Maintain at present rate or if drip has been off, follow reinitiation instructions* 161 - 200 mg/dL- Increase by or restart at 1 unit/hour or if drip has been off, follow reinitiation instructions* 201 - 250 mg/dL- Give 4 units insulin IVP then increase infusion by 2 units/hour or if drip has been off, follow reinitiation instructions* 251 - 300 mg/dL - Give 4 units insulin IVP then increase infusion by 2 units/hour or if drip has been off, follow reinitiation instructions* 301 - 349 mg/dL - Give 6 units insulin IVP then increase infusion by 3 units/hour or if drip has been off, follow reinitiation instructions* 350 - 400 mg/dL - Give 6 units insulin IVP then increase infusion by 3 units/hour or if drip has been off, follow reinitiation instructions* Greater than 400 mg/dL - Notify covering MD. *Drip Reinitiation Instructions: Check BG Q 1 hour; when BG greater than 100 mg/dL, restart infusion at 50% of the most recent rate. If the most recent rate less than 2 units/hr, contact covering provider for reinitiation or transition plan. Patients with renal failure (CrCl less than 40 mL/min, urine output less than 30 mL/hr, or receiving dialysis) limit infusion rate increases to be NO SOONER THAN EVERY 3 HOURS. When new IV tubing is used, completely prime the tubing. Once primed, waste an additional 20 ml of insulin infusion using the IV pump prior to connecting to patient., RoutineIndications:Hyperglyc emia Rate/Dose Change 11/24/2023 6:59 PM CDT 4 Units/hr 4 mL/hr Rate/Dose Change 11/24/2023 5:04 PM CDT 3 Units/hr 3 mL/hr New Bag 11/24/2023 1:59 PM CDT 2 Units/hr 2 mL/hr insulin regular in 0.9% sodium chloride (MYXREDLIN) 100 unit/100 mL (1 unit/mL) infusion (premix) 0-30 Units/hr (0-30 mL/hr), 1 units/mL, intravenous, Titrated, Starting on Fri11/24/23 at 2015, Until Fri11/26/23 at 0941, Phase I & Post-op Floor, Indications: Hyperglycemia, NON-WEIGHT BASED DOSING Blood Glucose (BG) - BG DECREASED OR SAME as last value: Less than 70 mg/dL - Stop insulin infusion *(see below for drip reinitiation instructions). Follow hypoglycemia orders. Notify covering MD. 70 - 100 mg/dL - Stop infusion *(see below for drip reinitiation instructions). Resume BG Q 1 hour. 101 - 160 mg/dL - If BG decreased by greater than or equal to 40 mg/dL, decrease infusion by 50% or stop infusion if less than or equal to 2 units/hour *(see below for drip reinitiation instructions). Resume BG Q 1 hour. If BG decreased less than 40 mg/dL, continue same rate. 161 - 200 mg/dL- If BG decreased by greater than or equal to 60 mg/dL, decrease infusion by 50% or stop infusion if less than or equal to 2 units/hour *(see below for drip reinitiation instructions). Resume BG Q 1 hour. If BG decreased less than 60 mg/dL, continue same rate. 201 - 250 mg/dl - If BG decreased by greater than or equal to 60 mg/dL continue same rate. If decreased by less than 60 mg/dL, increase by 1 unit/hr. 251 - 300 mg/dL - Increase by 2 units/hour. 301 - 349 mg/dL - Increase by 2 units/hour. 350 - 400 mg/dL - Increase by 3 units/hr. Greater than 400 mg/dL - Notify covering MD Blood Glucose (BG) - Blood glucose INCREASED since last value: 70 - 100 mg/dL - Continue to hold infusion 101 - 160 mg/dL - Maintain at present rate or if drip has been off, follow reinitiation instructions* 161 - 200 mg/dL- Increase by or restart at 1 unit/hour or if drip has been off, follow reinitiation instructions* 201 - 250 mg/dL- Give 4 units insulin IVP then increase infusion by 2 units/hour or if drip has been off, follow reinitiation instructions* 251 - 300 mg/dL - Give 4 units insulin IVP then increase infusion by 2 units/hour or if drip has been off, follow reinitiation instructions* 301 - 349 mg/dL - Give 6 units insulin IVP then increase infusion by 3 units/hour or if drip has been off, follow reinitiation instructions* 350 - 400 mg/dL - Give 6 units insulin IVP then increase infusion by 3 units/hour or if drip has been off, follow reinitiation instructions* Greater than 400 mg/dL - Notify covering MD. *Drip Reinitiation Instructions: Check BG Q 1 hour; when BG greater than 100 mg/dL, restart infusion at 50% of the most recent rate. If the most recent rate less than 2 units/hr, contact covering provider for reinitiation or transition plan. Patients with renal failure (CrCl less than 40 mL/min, urine output less than 30 mL/hr, or receiving dialysis) limit infusion rate increases to be NO SOONER THAN EVERY 3 HOURS. When new IV tubing is used, completely prime the tubing. Once primed, waste an additional 20 ml of insulin infusion using the IV pump prior to connecting to patient., RoutineIndications:Hyperglyc emia Rate/Dose Verify 11/25/2023 10:00 AM CDT 0 Units/hr 0 mL/hr Rate/Dose Verify 11/25/2023 8:20 AM CDT 2 Units/hr 2 mL/hr Rate/Dose Verify 11/25/2023 7:13 AM CDT 2 Units/hr 2 mL/hr lidocaine (ASPERCREME) 4 % patch 2 patch 2 patch, transdermal, Administer over 12 Hours, Every 24 hours, First dose on Fri12/02/23 at 1400, Do not apply over incision, Apply to affected area: shoulder, Laterality: Bilateral Medication Applied 12/04/2023 3:33 PM CDT 2 patches Other (Comment) Medication Applied 12/03/2023 12:09 PM CDT 2 patches Other (Comment) Medication Applied 12/02/2023 1:38 PM CDT 2 patches Left Shoulder magnesium hydroxide (MILK OF MAGNESIA) 80 mg/mL (33.3 mg/mL as elemental magnesium) oral suspension 30 mL 30 mL, oral, Daily PRN, constipation, Starting on Fri11/28/23 at 0944 Given 11/28/2023 10:21 AM CDT 30 mL methocarbamoL (ROBAXIN) tablet 500 mg 500 mg, oral, 3 times daily, First dose on Fri11/26/23 at 1015 Given 12/04/2023 3:33 PM CDT 500 mg Given 12/04/2023 9:39 AM CDT 500 mg Given 12/03/2023 9:28 PM CDT 500 mg ondansetron (ZOFRAN) injection 4 mg 4 mg, intravenous, Administer over 2 Minutes, Every 6 hours PRN, nausea, vomiting, if not tolerating PO, Starting on Fri11/25/23 at 1804, Indications: nausea and vomitingIndications:nausea and vomiting ondansetron ODT (ZOFRAN-ODT) disintegrating tablet 4 mg 4 mg, oral, Every 6 hours PRN, nausea, vomiting, Starting on Fri11/25/23 at 1804, Indications: nausea and vomitingIndications:nausea and vomiting oxyCODONE (ROXICODONE) tablet 5 mg 5 mg, oral, Every 4 hours PRN, 1st line for pain, Starting on Fri11/25/23 at 0432, Phase I & Post-op Floor, Indications: PainIndications:Pain Given 12/04/2023 3:33 PM CDT 5 mg Given 12/04/2023 9:39 AM CDT 5 mg Given 12/03/2023 6:26 PM CDT 5 mg phenylephrine in 0.9% sodium chloride (CHELSI-SYNEPHRINE) 25,000 mcg/250 mL (100 mcg/mL) infusion (premix) solution 0-2.5 mcg/kg/min ? 104.3 kg (0-156.45 mL/hr), 100 mcg/mL, intravenous, Titrated, Starting on Fri11/24/23 at 1915, Until Fri11/26/23 at 0942, Phase I, Initial rate: 0.5 mcg/kg/min, Titrate: Up/Down, Titrate by: 0.1 mcg/kg/min, Every: 2 minutes, Goal: MAP / 100, MAP Goal: Other (comment) / > 100 mmHg, Protect from light, Routine Rate/Dose Change 11/25/2023 10:30 AM CDT 0.3 mcg/kg/min 18.77 mL/hr New Bag 11/25/2023 10:00 AM CDT 0.65 mcg/kg/min 40.7 mL /hr Rate/Dose Verify 11/25/2023 9:00 AM CDT 0.65 mcg/kg/min 40 .7 mL/hr polyethylene glycol (MIRALAX) packet 17 g 17 g, oral, Daily, First dose on Fri11/25/23 at 1845, Hold for diarrhea., Indications: constipationIndications:constipation Given 12/04/2023 9:38 AM CDT 17 g Given 12/03/2023 8:46 AM CDT 17 g Given 12/02/2023 8:50 AM CDT 17 g senna-docusate (PERICOLACE) 8.6-50 mg per tablet 2 tablet 2 tablet, oral, 2 times daily, First dose on Fri11/25/23 at 2100, Hold for diarrhea., Indications: constipationIndications:constipation Given 12/04/2023 9:38 AM CDT 2 table ts Given 12/03/2023 9:28 PM CDT 2 tablets Given 12/03/2023 8:46 AM CDT 2 tablets simvastatin (ZOCOR) tablet 40 mg 40 mg, oral, Nightly, First dose on Fri11/25/23 at 2100 Given 12/03/2023 9:29 PM CDT 40 mg Given 12/02/2023 8:45 PM CDT 40 mg Given 12/01/2023 8:34 PM CDT 40 mg sodium chloride 0.9% bolus 500 mL 500 mL, intravenous, Once, On Fri12/01/23 at 0500, For 1 dose New Bag 12/01/2023 5:35 AM CDT 500 mL sodium chloride 0.9% flush 0.5-20 mL 0.5-20 mL, intra-catheter, Every 8 hours scheduled, First dose on Fri11/25/23 at 2200, Flush volume based on line type and size. , Indications: FlushingIndications:Flushing Given 12/02/2023 5:21 AM CDT 10 mL Given 12/01/2023 8:35 PM CDT 10 mL Given 12/01/2023 5:35 AM CDT 10 mL sodium chloride 0.9% flush 0.5-20 mL 0.5-20 mL, intra-catheter, Every 8 hours scheduled, First dose on Fri11/25/23 at 2200, Flush volume based on line type and size. , Indications: FlushingIndications:Flushing Given 12/04/2023 5:31 AM CDT 10 mL Given 12/03/2023 9:30 PM CDT 10 mL Given 12/03/2023 12:10 PM CDT 10 mL sodium chloride 0.9% infusion 100 mL/hr, intravenous, Continuous, Starting on Fri11/24/23 at 1900, Phase I & Post-op Floor, Discontinue when tolerating PO (500 mL in 8 hours). New Bag 11/25/2023 6:08 AM CDT 100 mL/hr 100 mL/hr New Bag 11/25/2023 1:27 AM CDT 100 mL/hr 100 mL/hr New Bag 11/24/2023 6:46 PM CDT 100 mL/hr 100 mL/hr sodium chloride 0.9% IVPB 0-250 mL 0-250 mL, intravenous, Once, On Fri11/24/23 at 1900, For 1 dose, Phase I, Prime blood tubing and administer amount needed to clear line (usually 50-100 mL) after transfusion complete. New Bag 11/24/2023 6:46 PM CDT 250 mL vancomycin 1500 mg/515 mL in sodium chloride 0.9% (premix) 1,500 mg 1,500 mg, intravenous, Administer over 90 Minutes, Once, On Fri11/25/23 at 0100, For 1 dose, Administer 12 hours after last pre-operative dose., Indications: Prophylaxis, SurgicalIndications:Prophylaxis, Surgical New Bag 11/25/2023 1:28 AM CDT 1,500 mg documented in this encounter Discontinued Medications Medication Sig Discontinue Reason Start Date End Da te aspirin 81 mg enteric coated tabletIndications:pre vention of thrombosis Take 1 tablet (81 mg total) by mouth early breastfeeding care specialist before breakfast 11/28/2023 apixaban (ELIQUIS) 5 mg tablet Take 1 tablet (5 mg total) by mouth 2 (two) times a day 11/28/2023 mupirocin (BACTROBAN) 2 % ointment Apply to nares BID starting 5 days prior to surgery ending the day prior Stop Taking at Discharge 10/17/2023 12/04/2023 HYDROcodone-acetamino phen (NORCO) 5-325 mg per tablet Take 1 tablet by mouth every 6 (six) hours as needed for pain Stop Taking at Discharge 11/17/2023 12/04/2023 documented as of this encounter Active and Recently Administered Medications Times are shown in CDT. Scheduled Medication Order 12/02/2023 12/03/2023 12/04/2023 acetaminophen (TYLENOL) tablet 1,000 mg 1,000 mg, oral, Every 6 hours scheduled, First dose on Fri11/25/23 at 1845 0021 (Given - Provider: Fran Valdez RN)0520 (Given - Provider: Fran Valdez RN)1159 (Given - Provider: Nancy Mercedes)1740 (Given - Provider: Nancy Mercedes)2336 (Given - Provider: Fran Valdez RN) 0548 (Given - Provider: Fran Valdez RN)1209 (Given - Provider: Nancy Mercedes)1710 (Given - Provider: Nancy Mercedes)2352 (Given - Provider: Kassi Zafar RN) 0531 (Given - Provider: Kassi Zafar RN)1234 (Given - Provider: Naomy Ochoa) bisacodyL (DULCOLAX) suppository 10 mg 10 mg, rectal, Daily, First dose (after last modification) on Fri11/28/23 at 1015, Indications: constipation 0850 (Not Given - Provider: Nancy Mercedes - Reason: Patient/family refused) 0846 (Given - Provider: Nancy Mercedes) 0941 (Not Given - Provider: Naomy Ochoa - Reason: Patient/family refused) cloNIDine (CATAPRES) tablet 0.1 mg 0.1 mg, oral, 2 times daily, First dose on Fri11/25/23 at 0900, Indications: hypertension 0850 (Given - Provider: Nancy Mercedes)2044 (Given - Provider: Fran Valdez RN) 0846 (Given - Provider: Nancy Mercedes)2127 (Given - Provider: Kassi Zafar RN) 0939 (Given - Provider: Naomy Ochoa) enoxaparin (LOVENOX) syringe 30 mg (CANCELED) 30 mg, subcutaneous, Daily (for enoxaparin), First dose on Fri11/25/23 at 2100, Indications: Deep Vein Thrombosis Prevention 2044 (Given - Provider: Fran Valdez RN) enoxaparin (LOVENOX) syringe 30 mg 30 mg, subcutaneous, Daily (for enoxaparin), First dose on Fri12/03/23 at 2100, Indications: Deep Vein Thrombosis Prevention 2127 (Given - Provider: Kassi Zafar RN) famotidine (PEPCID) tablet 10 mg 10 mg, oral, Daily, First dose (after last modification) on Fri12/04/23 at 0900, Indications: non-bleeding gastric disorder 0939 (Given - Provid er: Naomy Ochoa) famotidine (PEPCID) tablet 20 mg (CANCELED) 20 mg, oral, 2 times daily, First dose on Fri11/25/23 at 0900, Indications: non-bleeding gastric disorder 0849 (Given - Provider: Nancy Mercedes)2044 (Given - Provider: Fran Valdez RN) 0846 (Given - Provider: Nancy Mercedes) fluticasone propionate (FLONASE) 50 mcg/actuation nasal spray 2 spray 2 spray, each nostril, Daily, First dose on Fri11/26/23 at 0900 0851 (Given - Provider: Nancy Mercedes) 0848 (Given - Provider: Nancy Mercedes) 0943 (Given - Provider: Naomy Ochoa) furosemide (LASIX) tablet 40 mg 40 mg, oral, Daily, First dose on Fri11/27/23 at 1230, On hold since Fri12/03/2023 at 0752 until manually unheld 0849 (Given - Provider: Nancy Mercedes) 0752 (Held by Provider - Provider: Andi Simmons, VIOLENT CRIMES DETECTIVE - Reason: Other - Comment: Elevated creat)0900 (Hold - Provider: Nancy Mercedes - Reason: Other) 0900 (Not Given - Provider: Naomy Ochoa - Reason: See Provider Order)2126 (Unheld by Provider - Provider: Automatic Discharge Provider) gabapentin (NEURONTIN) capsule 100 mg 100 mg, oral, 3 times daily, First dose on Fri11/24/23 at 2130, Phase I & Post-op Floor, Indications: Neuropathic Pain 0849 (Given - Provider: Nancy Mercedes)1545 (Given - Provider: Nancy Mercedes)2044 (Given - Provider: Fran Valdez RN) 0846 (Given - Provider: Nancy Mercedes)1710 (Given - Provider: Nancy Mercedes)2128 (Given - Provider: Kassi Zafar, [place]) 0939 (Given - Provider: Naomy Ochoa)1533 (Given - Provider: Naomy Ochoa) insulin glargine (LANTUS, SEMGLEE) 100 unit/mL injection 16 Units 16 Units, subcutaneous, Nightly, First dose (after last modification) on Fri12/01/23 at 2100, Do not hold if NPO. Decreased per Endo on 11/27/2023 Do not mix with other insulins, Indications: Diabetes Mellitus 2044 (Given - Provider: Fran Valdez RN) 2128 (Given - Provider: Kassi Zafar, [place]) insulin lispro (HumaLOG, ADMELOG) 100 unit/mL injection 0-4 Units 0-4 Units, subcutaneous, Nightly, First dose on Fri11/25/23 at 2315, Blood glucose mg/dL: 199 or less: No insulin 200-249: add 1 unit 250-299: add 2 units 300-349: add 3 units and notify physician for adjustment of insulin orders. 350-399: add 4 units and notify physician for adjustment of insulin orders. Over 400: Notify physician for adjustment of insulin orders. Do NOT hold for NPO Status, Indications: Diabetes Mellitus 2045 (Not Given - Provider: Fran Valdez RN - Reason: Order parameters not met) 2128 (Not Given - Provider: Kassi Zafar RN - Reason: Order parameters not met) insulin lispro (HumaLOG, ADMELOG) 100 unit/mL injection 0-5 Units 0-5 Units, subcutaneous, 3 times daily with meals, First dose on Fri11/26/23 at 0800, Blood glucose mg/dL: 149 or less: No insulin 150-199: add 1 unit 200-249: add 2 units 250-299: add 3 units 300-349: add 4 units and notify physician for adjustment of insulin orders. 350-399: add 5 units and notify physician for adjustment of insulin orders. Over 400: Notify physician for adjustment of insulin orders. Do NOT hold for NPO Status, Indications: Diabetes Mellitus 0850 (Given - Provider: Nancy Mercedes)1159 (Given - Provider: Nancy Mercedes)1715 (Not Given - Provider: Nancy Mercedes - Reason: Order parameters not met) 0825 (Not Given - Provider: Nancy Mercedes - Reason: Order parameters not met)1202 (Not Given - Provider: Nancy Mercedes - Reason: Order parameters not met)1701 (Not Given - Provider: Nancy Mercedes - Reason: Order parameters not met) 0940 (Not Given - Provider: Naomy Ochoa - Reason: Order parameters not met)1235 (Not Given - Provider: Naomy Ochoa - Reason: Order parameters not met) insulin lispro (HumaLOG, ADMELOG) 100 unit/mL injection 6 Units 6 Units, subcutaneous, 3 times daily with meals, First dose (after last modification) on Fri11/27/23 at 0800, If BG greater than or equal to 100 mg/dL, give dose with meals when tray arrives in the room. If BG less than 100 mg/dL or history of poor intake, give after meals. If patient eating less than 50% of meal, call MD for holding or reducing meal insulin dose. Hold prandial insulin if NPO, unable to eat, or if BG less than 70 mg/dL., Indications: Diabetes Mellitus 0850 (Given - Provider: Nancy Mercedes)1200 (Given - Provider: Nancy Mercedes)1741 (Given - Provider: Nancy Mercedes) 0847 (Not Given - Provider: Nancy Mercedes - Reason: Other - Comment: pt doesnt want to take, didnt eat breakfast \)1210 (Given - Provider: Nancy Mercedes)1710 (Given - Provider: Nancy Mercedes) 0939 (Given - Provider: Naomy Ochoa)1234 (Given - Provider: Naomy Ochoa) lidocaine (ASPERCREME) 4 % patch 2 patch 2 patch, transdermal, Administer over 12 Hours, Every 24 hours, First dose on Fri12/02/23 at 1400, Do not apply over incision, Apply to affected area: shoulder, Laterality: Bilateral 1338 (Medication Applied - Provider: Nancy Mercedes)2358 (Medication Removed - Provider: Fran Valdez RN) 1209 (Medication Applied - Provider: Nancy Mercedes)2353 (Medication Removed - Provider: Kassi Zafar, SEBASTIÁN) 1533 (Medication Applied - Provider: Naomy Ochoa - Comment: bilateral upper shoulders)1727 (Due: Medication Removed - Provider: Automatic Discharge Provider - Comment: Time automatically adjusted from order being discontinued) methocarbamoL (ROBAXIN) tablet 500 mg 500 mg, oral, 3 times daily, First dose on Fri11/26/23 at 1015 0850 (Given - Provider: Nancy Mercedes)1545 (Given - Provider: Nancy Mercedes)2045 (Given - Provider: Fran Valdez RN) 0846 (Given - Provider: Nancy Mercedes)1710 (Given - Provider: Nancy Mercedes)2128 (Given - Provider: Kassi Zafar, SEBASTIÁN) 0939 (Given - Provider: Naomy Ochoa)1533 (Given - Provider: Naomy Ochoa) polyethylene glycol (MIRALAX) packet 17 g 17 g, oral, Daily, First dose on Fri11/25/23 at 1845, Hold for diarrhea., Indications: constipation 0850 (Given - Provider: Nancy Mercedes) 0846 (Given - Provider: Nancy Mercedes) 0938 (Given - Provider: Naomy Ochoa) senna-docusate (PERICOLACE) 8.6-50 mg per tablet 2 tablet 2 tablet, oral, 2 times daily, First dose on Fri11/25/23 at 2100, Hold for diarrhea., Indications: constipation 0849 (Given - Provider: Nancy Mercedes)2044 (Given - Provider: Fran Valdez RN) 0846 (Given - Provider: Nancy Mercedes)2127 (Given - Provider: Kassi Zafar RN) 0938 (Given - Provider: Naomy Ochoa) simvastatin (ZOCOR) tablet 40 mg 40 mg, oral, Nightly, First dose on Fri11/25/23 at 2100 2044 (Given - Provider: Fran Valdez RN) 2128 (Given - Provider: Kassi Zafar RN) sodium chloride 0.9% flush 0.5-20 mL (CANCELED) 0.5-20 mL, intra-catheter, Every 8 hours scheduled, First dose on Fri11/25/23 at 2200, Flush volume based on line type and size. , Indications: Flushing 0521 (Given - Provider: Fran Valdez RN) sodium chloride 0.9% flush 0.5-20 mL 0.5-20 mL, intra-catheter, Every 8 hours scheduled, First dose on Fri11/25/23 at 2200, Flush volume based on line type and size. , Indications: Flushing 0520 (Given - Provider: Fran Valdez RN)1200 (Given - Provider: Nancy Mercedes)2045 (Given - Provider: Fran Valdez RN) 0554 (Given - Provider: Fran Valdez RN)1210 (Given - Provider: Nancy Mercedes)2129 (Given - Provider: Kassi Zafar RN) 0531 (Given - Provider: Kassi Zafar RN)1235 (Not Given - Provider: Naomy Ochoa - Reason: Other - Comment: DC'd IV for discharge) PRN Medication Order 12/02/2023 12/03/2023 12/04/2023 albuterol HFA (PROVENTIL HFA,VENTOLIN HFA,PROAIR HFA) 90 mcg/actuation inhaler 2 puff 2 puff, inhalation, Every 6 hours PRN (emergency response coordinator), wheezing, Starting on Fri11/25/23 at 1814 Carrier Fluids for Secondary Infusion - 0.9% Sodium Chloride 30 mL, intravenous, As needed, For priming tubing and/or flushing, Starting on Fri11/25/23 at 1804, 0-250 ml/hr to flush line after IV infusions when no maintenance IV ordered. Infuse 30mL at the same rate as the secondary infusion. Run as primary IV, not intended for KVO. cyclobenzaprine (FLEXERIL) tablet 5 mg 5 mg, oral, 3 times daily PRN, muscle spasms, Starting on Fri11/26/23 at 0942 0520 (Given - Provider: Fran Valdez RN)1159 (Given - Provider: Nancy Mercedes) 0846 (Given - Provider: Nancy Mercedes)1439 (Given - Provider: Nancy Mercedes) 0939 (Given - Provider: Naomy Ochoa) magnesium hydroxide (MILK OF MAGNESIA) 80 mg/mL (33.3 mg/mL as elemental magnesium) oral suspension 30 mL 30 mL, oral, Daily PRN, constipation, Starting on Fri11/28/23 at 0944 ondansetron (ZOFRAN) injection 4 mg(Linked Group 1) 4 mg, intravenous, Administer over 2 Minutes, Every 6 hours PRN, nausea, vomiting, if not tolerating PO, Starting on Fri11/25/23 at 1804, Indications: nausea and vomiting ondansetron ODT (ZOFRAN-ODT) disintegrating tablet 4 mg(Linked Group 1) 4 mg, oral, Every 6 hours PRN, nausea, vomiting, Starting on Fri11/25/23 at 1804, Indications: nausea and vomiting oxyCODONE (ROXICODONE) tablet 5 mg 5 mg, oral, Every 4 hours PRN, 1st line for pain, Starting on Fri11/25/23 at 0432, Phase I & Post-op Floor, Indications: Pain 0520 (Given - Provider: Fran Valdez RN)0939 (Given - Provider: Nancy Mercedes)1338 (Given - Provider: Nancy Mercedes)1741 (Given - Provider: Nancy Mercedes)2336 (Given - Provider: Fran Valdez RN) 0548 (Given - Provider: Fran Valdez RN)1031 (Given - Provider: Nancy Mercedes)1440 (Given - Provider: Nancy Mercedes)1826 (Given - Provider: Nancy Mercedes) 0939 (Given - Provider: Naomy Ochoa)1533 (Given - Provider: Naomy Ochoa) sodium chloride 0.9% flush 0.5-20 mL 0.5-20 mL, intra-catheter, As needed, line care, Starting on Fri11/25/23 at 1804, Flush volume based on line type and size. Flush before and after each use. , Indications: Flushing Linked Groups Order Group 1: ondansetron ODT (ZOFRAN-ODT) disintegrating tablet 4 mgJump to med 4 mg, oral, Every 6 hours PRN, nausea, vomiting, Starting on Fri11/25/23 at 1804, Indications: nausea and vomiting Or ondansetron (ZOFRAN) injection 4 mgJump to med 4 mg, intravenous, Administer over 2 Minutes, Every 6 hours PRN, nausea, vomiting, if not tolerating PO, Starting on Fri11/25/23 at 1804, Indications: nausea and vomiting documented in this encounter Orders Medications Ordered That Cash ht Not Have Been Administered Count Last Ordered Date First Ordered Date famotidine (PEPCID) tablet 20 mg 1 12/03/19 heparin 5,000 unit/mL inject ion 5,000 Units 1 12/03/2023 lactulose 0.67 gram/mL oral solution 20 g 1 12/03/2023 docusate with cottonseed oil enema 1 2023 albuterol HFA (PROVENTIL HFA ,VENTOLIN HFA,PROAIR HFA) 90 mcg/actuation inhaler 2 puff 2 11/25/2023 bisacodyL (DULCOLAX) suppository 10 mg 1 Carrier Fluids for Secondary Infusion - 0.9% Sodium Chloride 3 11/25/2023 11/24/2023 dextrose (D10W) 10% bolus 250 mL 3 11/25/19 24 11/24/2023 dextrose gel in packet 15 g 3 11/25/2023 11/24/2023 glucagon injection 1 mg 3 11/25/202311/11 ondansetron (ZOFRAN) injection 4 mg 1 11/24 ondansetron ODT (ZOFRAN-ODT) disintegrating tablet 4 mg 1 11/25/2023 sodium chloride 0.9% flush 0.5-20 mL 3 11/1111/24/2023 ceFAZolin (ANCEF) 2,000 mg/2 0 mL in sterile water (premix) 2,000 mg 1 11/24/2023 insulin regular bolus from bag 4-10 Units 2 11/24/2023 insulin regular bolus from bag 4-6 Units 2 11/24/2023 Lactated Ringer's (LR) infusion 2 Lactated Ringer's (LR) infus ion - ADS Override Pull 1 11/24/2023 methylPREDNISolone acetate ( DEPO-medrol) injection 1 11/24/2023 sodium chloride 0.9% irrigation 1 thrombin-recombinant 5,000 u nit topical solution 1 11/24/2023 vancomycin 1500 mg/515 mL in sodium chloride 0.9% (premix) 1,500 mg 1 11/24/2023 Lab Orders Without Results Count Last Ordered D ate First Ordered Date POCT GLUCOSE DEVICE 75 12/04/2023 11/25/19 24 Diet Count Last Ordered Date First Orde red Date ADULT DISCHARGE DIET 2 12/04/2023 Nursing Count Last Ordered Date First Orde red Date DISCHARGE ACTIVITY 12 12/04/2023 DISCHARGE CALL PROVIDER 4 12/04/2023 DISCHARGE DRESSING 4 12/04/2023 DISCHARGE INSTRUCTIONS 8 12/04/2023 Consult Count Last Ordered Date First Orde red Date CONSULT TO WOUND CARE 1 11/27/2023 CONSULT TO ENDOCRINOLOGY DIABETES 1 024 Admission Count Last Ordered Date First Orde red Date ADMIT TO INPATIENT 1 11/24/2023 Transfer Count Last Ordered Date First Orde red Date TRANSFER PATIENT TO NEW UNIT 1 11/25/2023 Discharge Count Last Ordered Date First Orde red Date DISCHARGE PATIENT 1 12/04/2023 ADT Patient Update Count Last Ordered Date Firs t Ordered Date PROVIDER TREATMENT TEAM 1 11/24/2023 documented in this encounter Care Teams Perinatal Breastfeeding Assistant Relationship Specialty Start Date End Date Lalito England MD [address] [place] [address] PCP - General 08/03/19 documented as of this encounter
--- OUTSIDE RECORDS SUMMARY | 2024-07-11 22:36 | XMS_ITS | Encounter Summary ---
Author Organization [facility] Healthcare Address [address] [place] [address] Care Team Providers Care Ear Nose Throat Physician Name Role Phone Lalito England MD Primary Care Provider [phone] Reason for Visit * Reason Onset Date Comments Medication Request 08/25/2023 Encounter Details Date Type Department Care Team (Late st Contact Info) Description 08/25/2023 Telephone [facility] [address] [facility] [place] [address] Lalito England MD [address] [facility] [address] Medication Request Social History Tobacco Use Types Packs/Day Years Used Date Smoking Tobacco: Never Smokeless Tobacco: Never Alcohol Use Standard Drinks/Week Comments Yes 0 (1 standard drink = 0.6 oz pur e alcohol) occasional AUDIT-C Answer Date Recorded Q1: How often do you have a drink containing alcohol? Never 09/16/2023 Q2: How many drinks containi ng alcohol do you have on a typical day when you are drinking? Patient does not drink Q3: How often do you have si x or more drinks on one occasion? Never 09/16/2023 Overall Financial Resource Strain (CARDIA) Answe r [...] a care home (including now)? No 07/16/2022 Personal Safety Answer Date Recorded Getting School Help Needed Not on file 06/28 Comments No Sex and Gender Information Value Date Recorded Sex Assigned at Not on file Legal Sex Female 11:52 PM RELIEF MAP MODELER Gender Identity Not on file Sexual Orientation Not on file documented as of this encounter Ordered Prescriptions Prescription Sig Dispense Quantity Refills Last Filled Start Date End Date HYDROcodone-acetam inophen (NORCO) 5-325 mg per tablet Take 1 tablet by mouth every 6 (six) hours as needed for pain 120 tablet 08/25/2023 10/13/2023 documented in this encounter Miscellaneous Notes * Telephone Encounter - Marylou Tovar MA - 08/25/2023 1:53 PM CST LR 07/18/23, 30 day Send to pharmacy if approved Thanks EF MAP MODELER * Telephone Encounter - Sia Carney - 08/25/2023 1:50 PM CST Medication Refill Patient's last Office/Video Visit: 05/26/23 Patient's next Office/Video Visit: 08/27/23 Medication(s) Name/Dose: HYDROcodone-acetaminophen (NORCO) 5-325 mg per tablet Pharmacy (s) medication(s) should be sent to: [facility] [id number] [place], [place] - [address] [place] [address] Additional Comments: Patient stated that she has enough medication for the rest of the week Does message need to be routed? Yes-Action Needed EF MAP MODELER documented in this encounter Plan of Treatment Not on file documented as of this encounter Visit Diagnoses Not on filedocumented in this encounter Discontinued Medications Medication Sig Discontinue Reason Start Date End Da te HYDROcodone-acetaminophe n (NORCO) 5-325 mg per tablet Take 1 tablet by mouth every 6 (six) hours as needed for pain Reorder 07/18/2023 08/25/2023 documented as of this encounter Care Teams Ear Nose Throat Physician Relationship Specialty Start Date End Date Lalito England MD [address] [place] [address] PCP - General 08/03/19 documented as of this encounter
--- OUTSIDE RECORDS SUMMARY | 2024-07-11 22:36 | XMS_ITS | Encounter Summary ---
Author Organization [facility] Healthcare Address [address] [place] [address] Care Team Providers Care Senior Games Technician Name Role Phone Lalito England MD Primary Care Provider [phone] Encounter Details Date Type Department Care Team (Late st Contact Info) Description 09/19/2023 Telephone [facility] [place] [address] [facility] [place] [address] Lalito England MD [address] [place] [address] Social History Tobacco Use Types Packs/Day [...] points, staff should administer the PHQ-9) 0 08/27/2023 PRAPARE - Transportation Answer Date Re corded [...] in a fci (including now)? No 07/16/2022 Personal Safety Answer Date Recorded Getting School Help Needed Not on file 06/28 Comments No Sex and Gender Information Value Date Recorded Sex Assigned at Not on file Legal Sex Female 11:52 PM 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 HEALTH COORDINATOR Gender Identity Not on file Sexual Orientation Not on file documented as of this encounter Miscellaneous Notes * Telephone Encounter - Devi George MA - 09/19/2023 9:58 AM CST Pt aware of results PATIONAL HEALTH COORDINATOR * Telephone Encounter - Devi George MA - 09/19/2023 9:58 AM CST ----- Message from Sarah Carter NP sent at 09/18/2023 1:54 PM 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 HEALTH COORDINATOR ----- A1c improving- 8.9%. Cholesterol panel looks good. Kidney function decreased as we know. Continue following with Nephrology. Keep appointment with Dr. England for follow-up as scheduled. To Dr. England as FYI PATIONAL HEALTH COORDINATOR documented in this encounter Plan of Treatment Not on file documented as of this encounter Visit Diagnoses Not on filedocumented in this encounter Care Teams Senior Games Technician Relationship Specialty Start Date End [place] [address] PCP - General 08/03/19 documented as of this encounter
--- OUTSIDE RECORDS SUMMARY | 2024-07-11 22:36 | XMS_ITS | Encounter Summary ---
Author Organization [facility] Healthcare Address [address] [place] [address] Care Team Providers Care Ground Services Instructor Name Role Phone Lalito England MD Primary Care Provider [phone] Encounter Details Date Type Department Care Team (Late st Contact Info) Description 11/18/2023 Telephone [facility] [place] [address] [facility] [place] [address] Lalito England MD [address] [place] [address] Social History Tobacco Use Types Packs/Day Years Used Date Smoking Tobacco: Never Passive Smoke Exposure: Past Smokeless Tobacco: Never Alcohol Use Standard Drinks/Week Comments Yes 0 (1 standard drink = 0.6 oz pur e alcohol) occasional AUDIT-C Answer Date Recorded Q1: How often do you have a drink containing alcohol? Never 11/14/2023 Q2: How many drinks containi ng alcohol do you have on a typical day when you are drinking? Patient does not drink Q3: How often do you have si x or more drinks on one occasion? Never 11/14/2023 Overall Financial Resource Strain (CARDIA) Answe r [...] making you feel afraid or unsafe? 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
--- OUTSIDE RECORDS SUMMARY | 2024-07-11 22:36 | XMS_ITS | Encounter Summary ---
Author Organization [facility] Healthcare Address [address] [place] [address] Care Team Providers Care Liner Helper Name Role Phone Lalito England MD Primary Care Provider [phone] Reason for Referral * Consultation (Routine) - Closed Specialty Diagnoses / Procedures Referred By Contac t Referred To Contact Dermatology Diagnoses Skin lesion Lalito England MD [address] [place] [address] Phone: tel: fax: External Order Referral ID Status Reason Start Date Expiration Date V isits Requested Visits Authorized [id number] Closed Specialty Services Required 08/27/2023 09/25/2024 1 1 Question Answer Please select the performing region: External Order [171] # of visits: [address] Radha Covington [employer] Reason for Visit * Reason Comments Follow-up 3 mo follow up. Encounter Details Date Type Department Care Team (Late st Contact Info) Description 08/27/2023 2:15 PM [employer] Office Visit [facility] [address] [place] [address] Lalito England MD [address] [place] [address] Skin lesion (Primary Dx); Type 2 diabetes mellitus with stage 3b chronic kidney disease, with long-term current use of insulin (HCC); Type 2 diabetes mellitus with diabetic neuropathy, with long-term current use of insulin ([facility]) ([facility]); Type 2 diabetes mellitus with diabetic neuropathy, without long-term current use of insulin ([facility]) ([facility]); Spinal stenosis, lumbar region without neurogenic claudication; Hypertension secondary to endocrine disorders; Hypertension associated with diabetes ([facility]); CKD (chronic kidney disease) stage 4, GFR 15-29 ml/min ([facility]) ([facility]); BMI 38.0-38.9,adult; Severe obesity (BMI 35.0-39.9) with comorbidity ([facility]) Social History Tobacco Use Types Packs/Day Years Used Date Smoking Tobacco: Never Smokeless Tobacco: Never Alcohol Use Standard Drinks/Week Comments Yes 0 (1 standard drink = 0.6 oz pur e alcohol) occasional AUDIT-C Answer Date Recorded Q1: How often do you have a drink containing alcohol? Never 05/26/2023 Q2: How many drinks containi ng alcohol do you have on a typical day when you are drinking? Patient does not drink Q3: How often do you have si x or more drinks on one occasion? Never 05/26/2023 Overall Financial Resource Strain (CARDIA) Answe r [...] in a halfway (including now)? No 07/16/2022 Personal Safety Answer Date Recorded Getting School Help Needed Not on file 06/28 Comments No Sex and Gender Information Value Date Recorded Sex Assigned at Not on file Legal Sex Female 11:52 PM [employer] Gender Identity Not on file Sexual Orientation Not on file documented as of this encounter Last Filed Vital Signs Vital Sign Reading Time Taken Comments Blood Pressure 124/70 08/27/2023 2:02 PM [employer] Pulse 71 08/27/2023 2:02 PM [employer] Temperature - - Respiratory Rate 18 08/27/2023 2:02 PM [employer] Oxygen Saturation 96% 08/27/2023 2:02 PM [employer] Inhaled Oxygen Concentration - - Weight 108.9 kg (240 lb) 08/27/2023 2:02 PM [employer] Height 167.6 cm (5' 5.98 ) 08/27/2023 2:02 PM CS T Body Mass Index 38.76 08/27/2023 2:02 PM [employer] documented in this encounter Progress Notes * Lalito England MD - 08/27/2023 2:15 PM CST Images from the original note were not included. [facility] Criss Ly Chief Complaint. Chief Complaint Patient presents with Follow-up 3 mo follow up. HPI. Patient is a 73 y.o. female Ms. Ly presents to clinic for f/u with friend. She is anticipating moving back home from [facility]. Nomi has had home adapted by [facility] to be mobiltiy adaptable and will motniro repnose.[place] mobioyt and will follow repsonse. Diabetes She presents for her follow-up diabetic visit. She has type 2 diabetes mellitus. Her disease coursehas been stable. Hypoglycemia symptoms include mood changes. Pertinent negatives for hypoglycemia include no dizziness, headaches, sleepiness or tremors. Associated symptoms include fatigue and foot paresthesias. Pertinent negatives for diabetes include no chest pain, no foot ulcerations, no visualchange and no weakness. Symptoms are stable. Diabetic complications include heart disease, nephropathy and peripheral neuropathy. Pertinent negatives for diabetic complications include no CVA. Risk factors for coronary artery disease include diabetes mellitus, dyslipidemia, hypertension, obesity, post-menopausal, sedentary lifestyle and stress. Current diabetic treatment includes insulin injections. She is compliant with treatment most of the time. Her weight is stable. An REYNALDO inhibitor/angiotensin II receptor moses is being taken. Eye exam is not current. Hyperlipidemia This is a chronic problem. The current episode started more than 1 year ago. The problem is controlled. Recent lipid tests were reviewed and are normal. Exacerbating diseases include diabetes and obesity. She has no history of chronic renal disease. Pertinent negatives include no chest pain, myalgias or shortness of breath. Current antihyperlipidemic treatment includes statins. The current treatment provides significant improvement of lipids. Compliance problems include adherence to diet and adherence to exercise. Risk factors for coronary artery disease include diabetes mellitus, dyslipidemia, hypertension, obesity, post-menopausal, a sedentary lifestyle and stress. 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 2007.; Comments: [facility] 07/25/2015 - HX OTHER MEDICAL Breast reduction 2008.; Comments: [facility] 07/25/2015 - HX OTHER MEDICAL left hip and leg surgery HX OTHER MEDICAL conversion of previous hip arthroplasty left hip; Comments: [facility] TCU unit 02/06 - 02/17/16 for rehabilitation. Hyperlipidemia Hyperlipidemia Hypertension Hypertension Osteoarthritis Osteoarthritis Polyp of colon colon polyps Sarcoidosis Sarcoidosis [...] Fall: Medical Management REDUCTION MAMMAPLASTY Bilateral 2009 TONSILLECTOMY tonsillectomy TOTAL HIP ARTHROPLASTY Left 02/05/2016 Dr. David Sykes, [facility] - conversion of previous hip arthroplasty left hip: Conversion of Arthroplasty left hip TOTAL KNEE ARTHROPLASTY Left 09/27/2005 Left TKA - Dr. Cole Beckham TOTAL KNEE ARTHROPLASTY Right 08/27/2001 Right TKA - [facility]. [facility] MEDICATIONS : albuterol HFA (PROVENTIL HFA,VENTOLIN HFA,PROAIR HFA) 90 mcg/actuation inhaler alendronate (FOSAMAX) 70 mg tablet aspirin 81 mg enteric coated tablet biotin 10,000 mcg capsule blood glucose diagnostic (Contour Next Test Strips) strip blood-glucose meter (CONTOUR NEXT USB METER) misc calcium carbonate-vitamin D3 500 mg(1,250mg) -400 unit tablet cloNIDine (CATAPRES) 0.1 mg tablet Eliquis 5 mg tablet fluticasone propionate (FLONASE) 50 mcg/actuation nasal spray fluticasone propionate (Flovent Diskus) 100 mcg/actuation diskus inhaler furosemide (LASIX) 20 mg tablet gabapentin (NEURONTIN) 100 mg capsule HYDROcodone-acetaminophen (NORCO) 5-325 mg per tablet insulin aspart (NovoLOG) 100 unit/mL (3 mL) pen for injection insulin glargine (LANTUS) 100 unit/mL (3 mL) pen for injection lancets (MICROLET LANCET) misc montelukast (SINGULAIR) 10 mg tablet naloxone (NARCAN) 4 mg/actuation spray,non-aerosol omeprazole (PriLOSEC) 20 mg capsule pen needle, diabetic (BD Ultra-Fine Mini Pen Needle) 31 gauge x 3/16 needle polyethylene glycol (MIRALAX) 17 gram/dose powder semaglutide (OZEMPIC) 2 mg/dose (8 mg/3 mL) pen injector injection simvastatin (ZOCOR) 40 mg tablet apixaban (ELIQUIS) 5 mg tablet melatonin 3 mg tablet,disintegrating No Known Allergies Social History Tobacco Use Smoking status: Never Smokeless tobacco: Never Substance and Sexual Activity Drug use: Never Sexual activity: Defer Alcohol Use: Not At Risk (05/26/2023) AUDIT-C Frequency of Alcohol Consumption: Never Average [...] Review of Systems: Review of Systems Constitutional: Positive for fatigue. Negative for activity change, diaphoresis and fever. HENT: Negative for postnasal drip and rhinorrhea. Respiratory: Negative for chest tightness, shortness of breath and wheezing. Cardiovascular: Negative for chest pain and leg swelling. Gastrointestinal: Negative for abdominal pain, blood in stool, constipation, diarrhea, nausea and vomiting. Genitourinary: Negative for dysuria, hematuria and urgency. Musculoskeletal: Positive for arthralgias and gait problem. Negative for back pain, myalgias and neck pain. Skin: Positive for wound. Neurological: Negative for dizziness, tremors, weakness, light-headedness and headaches. Hematological: Negative for adenopathy. Psychiatric/Behavioral: Negative for sleep disturbance and suicidal ideas. BP 124/70 (BP Location: Left arm, Patient Position: Sitting) Pulse 71 Resp 18 Ht 167.6 cm (5'5.98 ) Wt 108.9 kg (240 lb) SpO2 96% BMI 38.76 kg/m?? Physical Exam: Physical Exam Vitals reviewed. [...] present. Lymphadenopathy: Cervical: No cervical adenopathy. Skin: Capillary Refill: Capillary refill takes less than 2 seconds. Findings: No erythema. Neurological: Mental Status: She is alert and oriented to person, place, and time. Motor: Weakness present. Gait: Gait abnormal. Psychiatric: Thought Content: Thought content normal. Assessment & Plan: Diagnoses and all orders for this visit: Skin lesion (Primary) - Ambulatory referral to Dermatology; Future Nonhealing skin lesion and wilm ontiorresponse. Type 2 diabetes mellitus with stage 3b chronic kidney disease, with long-term current use of insulin ([facility]) Seconadry prevention. WIll continue and montior epnose. Reivewe anisa pederson follow repsonse. Type 2 diabetes mellitus with diabetic neuropathy, with long-term current use of insulin (CMS/HCC) ([facility]) Continue on gabapentin and will monitor response. Type 2 diabetes mellitus with diabetic neuropathy, without long-term current use of insulin (CMS/HCC) ([facility]) As above. Foot care and moisturizer and aovid cracking. Spinal stenosis, lumbar region without neurogenic claudication Supportive care and will continue to follow repsonse. Hypertension secondary to endocrine disorders Stable and will motnirr eopnsse. Hypertension associated with diabetes ([facility]) CKD (chronic kidney disease) stage 4, GFR 15-29 ml/min (CMS/HCC) ([facility]) Reivewed fluid balance and will motnir reopsnse. BMI 38.0-38.9,adult [place] 150min/week aerobic exericse. Severe obesity (BMI 35.0-39.9) with comorbidity ([facility]) BMI Follow-up includes: nutrition counseling and exercise counseling. Body mass index is 38.76 kg/m??. Lalito England MD [employer] documented in this encounter Plan of Treatment Scheduled Referrals Name Type Priority Associated Diagnoses Order Schedule Ambulatory referral to Dermatology Outpatient Referral Routine Skin lesion Expected: 09/10/2023 (Approximate), Expires: 08/27/2024 documented as of this encounter Visit Diagnoses Diagnosis Skin lesion- Primary Unspecified disorder of skin and subcutaneous tissue Type 2 diabetes mellitus with stage 3b chronic kidney disease, with long-term current use of insulin (HCC) Type 2 diabetes mellitus with diabetic neuropathy, with long-term current use of insulin (HCC) Type 2 diabetes mellitus with diabetic neuropathy, without long-term current use of insulin ([facility]) Spinal stenosis, lumbar region without neurogenic claudication Hypertension secondary to endocrine disorders Hypertension associated with diabetes ([facility]) Unspecified essential hypertension CKD (chronic kidney disease) stage 4, GFR 15-29 ml/min (CMS/HCC) (HCC) Chronic kidney disease, Stage IV (severe) BMI 38.0-38.9,adult Severe obesity (BMI 35.0-39.9) with comorbidity (HCC) documented in this encounter Care Teams Liner Helper Relationship Specialty Start Date End Date Lalito England MD [address] [place] [address] PCP - General 08/03/19 documented as of this encounter
--- OUTSIDE RECORDS SUMMARY | 2024-07-11 22:36 | XMS_ITS | Encounter Summary ---
Author Organization [facility] Address [address] [facility] [address] [place] [address] Phone Care Team Providers Care Manufacturing Accountant Name Role Phone Lalito England MD Primary Care Provider [phone] Reason for Visit * Consultation (Routine) - Authorized Specialty Diagnoses / Procedures Referred By Giuliana t Referred To Contact Neurosurgery Diagnoses Degenerative cervical spinal stenosis Lalito England MD [address] [place] [address] Phone: tel: fax: Brennan Castillo MD [address] [place] [address] Phone: tel: fax: Referral ID Status Reason Start Date Expiration Date Visits Requested Visits Authorized [id number] Authorized Specialty Services Required 08/14/2023 09/12/2024 12 12 Encounter Details Date Type Department Care Team (Late st Contact Info) Description 09/16/2023 9:30 AM COMMERCIAL REAL ESTATE AGENT Office Visit [facility] Neurosurgery [address] [facility] [facility] [address] 6[address] [place] [address] [place] [id number] Lizbet Stewart NP [address] [place] [address] Degenerative cervical spinal stenosis Social History Tobacco Use Types Packs/Day Years [...] to sleep or slept in a senior care (including now)? No 07/16/2022 Personal Safety Answer Date Recorded Getting School Help Needed Not on file 06/28 Comments No Sex and Gender Information Value Date Recorded Sex Assigned at Not on file Legal Sex Female 11:52 PM COMMERCIAL REAL ESTATE AGENT Gender Identity Not on file Sexual Orientation Not on file documented as of this encounter Last Filed Vital Signs Vital Sign Reading Time Taken Comments Blood Pressure 123/53 09/16/2023 9:29 AM COMMERCIAL REAL ESTATE AGENT Pulse 73 09/16/2023 9:29 AM COMMERCIAL REAL ESTATE AGENT Temperature - - Respiratory Rate - - Oxygen Saturation - - Inhaled Oxygen Concentration - - Weight 108.9 kg (240 lb) 09/16/2023 9:29 AM COMMERCIAL REAL ESTATE AGENT Height 165.1 cm (5' 5 ) 09/16/2023 9:29 AM COMMERCIAL REAL ESTATE AGENT Body Mass Index 39.94 09/16/2023 9:29 AM COMMERCIAL REAL ESTATE AGENT documented in this encounter Progress Notes * Lizbet Stewart, LAW CLERK - 09/16/2023 9:30 AM CST NEW PATIENT VISIT CHIEF COMPLAINT Cervical myelopathy HISTORY OF PRESENT ILLNESS Criss Ly is a pleasant 73 y.o. female with a medical history of diabetes mellitus type 2, obesity, osteoporosis, DVT, hypertension, hyperlipidemia, chronic kidney disease, GERD who presents as a referral from Dr. England. Ms. Ly underwent a C3 through 7 anterior cervical diskectomy and fusion [place] [address] Tovar along with an L4-5 decompression [place] [address] Barrett. Her gait imbalance has continued to decline over the past 2 years. Today, the patient complains of severe posterior neck pain that radiates into bilateral scapulas and into the bilateral anterior upper extremities radiating into all 5 digits. Criss Ly notes thatshe has numbness in all 10 digits and her fine motor skills have continued to decrease. She commonly drops items, has difficulty buttoning buttons or opening jars. Her balance has continued to decline and she was transitioned from a cane to a walker. She was unable to ambulate without falling without a walker. She denies any urinary incontinence. The patient currently takes gabapentin 100 mg t.i.d. and Madison 5/325 t.i.d.. She was reduced on her gabapentin due to her kidney function.Criss yL additionally suffers from bilateral low back pain and bilateral posterior thigh pain ending at her knees. Of note, the patient denies a smoking history and her last DEXA was in 2020 revealing a T-score of-2.7. She is on Fosamax The patient is diabetic and her last hemoglobin A1c was 9.8. The patient is currently on Ozempic. She was on Eliquis for a prior DVT and aspirin 81 mg for prevention. PAST MEDICAL HISTORY She has a past medical history of Benign hypertension with CKD (chronic kidney disease) stage III (HCC), Gastroesophageal reflux disease, OTHER MEDICAL, OTHER MEDICAL, OTHER MEDICAL, OTHER MEDICAL (2007), OTHER MEDICAL, OTHER MEDICAL, OTHER MEDICAL, OTHER MEDICAL, OTHER MEDICAL, OTHER MEDICAL, OTHER MEDICAL, OTHER MEDICAL, OTHER MEDICAL, Hyperlipidemia, Hypertension, Osteoarthritis, Polyp of colon, Sarcoidosis, Type 2 diabetes mellitus (HCC), Type 2 diabetes mellitus with diabetic autonomic (poly)neuropathy (HCC), Type 2 diabetes mellitus with hyperglycemia (CMS/HCC) (HCC), and Type II diabetes mellitus with stage 3 chronic kidney disease (HCC). She has no past medical history of Chronic constipation, Chronic diarrhea, Dysphagia, or Sleep apnea. PAST SURGICAL HISTORY She has a past surgical history that includes Total knee arthroplasty (Left, 09/27/2005); Total knee arthroplasty (Right, 08/27/2001); Back surgery (08/14/2006); Tonsillectomy; Lumbar spine surgery; Other surgical history; Reduction mammaplasty (Bilateral, 2008); Colonoscopy (09/15/2013); Back surgery (03/25/2022); Total hip arthroplasty (Left, 02/05/2016); and Neck surgery (06/2008). FAMILY HISTORY Her family history includes Cancer in her brother; Colon cancer in her father; Diabetes in her brother and mother; Heart disease in her father; Heart failure in her father; Hypertension in her brother and mother; Lymphoma in her brother; Stroke in her brother. MEDICATIONS Current Outpatient Medications: albuterol HFA (PROVENTIL HFA,VENTOLIN HFA,PROAIR HFA) 90 mcg/actuation inhaler, Inhale 2 puffs every 6 (six) hours as needed for wheezing, Disp: 1 each, Rfl: 2 alendronate (FOSAMAX) 70 mg tablet, TAKE 1 TABLET BY MOUTH EVERY FRIDAY FOR OSTEOPOROSIS, Disp: 12tablet, Rfl: 11 apixaban (ELIQUIS) 5 mg tablet, Take 1 tablet (5 mg total) by mouth 2 (two) times a day (Patient not taking: Reported on 08/27/2023), Disp: , Rfl: aspirin 81 mg enteric coated tablet, Take 1 tablet (81 mg total) by mouth daily, Disp: , Rfl: biotin 10,000 mcg capsule, Take 1 capsule (10,000 mcg total) by mouth daily, Disp: , Rfl: blood glucose diagnostic (Contour Next Test Strips) strip, TEST BLOOD SUGAR 3 TIMES A DAY AND WILL MONTIOR RESPONSE. DX: E11.22., Disp: 200 strip, Rfl: 1 blood-glucose meter (CONTOUR NEXT USB METER) [facility], test as directed, Disp: 1 each, Rfl: 0 calcium carbonate-vitamin D3 500 mg(1,250mg) -400 unit tablet, Take one by mouth two times per day,Disp: 0, Rfl: 0 cloNIDine (CATAPRES) 0.1 mg tablet, TAKE 1/2 TABLET BY MOUTH TWICE DAILY FOR HYPERTENSION, Disp: 90tablet, Rfl: 6 Eliquis 5 mg tablet, TAKE 1 TABLET BY MOUTH TWICE DAILY, Disp: 60 tablet, Rfl: 17 fluticasone propionate (FLONASE) 50 mcg/actuation nasal spray, SPRAY 2 SPRAYS INTO EACH NOSTRIL EVERY DAY, Disp: 48 mL, Rfl: 1 fluticasone propionate (Flovent Diskus) 100 mcg/actuation diskus inhaler, Inhale 1 puff 2 (two) times a day Rinse mouth with water after use. Do not swallow., Disp: 60 each, Rfl: 3 furosemide (LASIX) 20 mg tablet, Take 2 tablets (40 mg total) by mouth daily, Disp: 180 tablet, Rfl: 4 gabapentin (NEURONTIN) 100 mg capsule, TAKE 1 CAPSULE BY MOUTH 3 TIMES DAILY FOR NEUROPATHY, Disp: 270 capsule, Rfl: 1 HYDROcodone-acetaminophen (NORCO) 5-325 mg per tablet, Take 1 tablet by mouth every 6 (six) hours as needed for pain, Disp: 120 tablet, Rfl: 0 insulin aspart (NovoLOG) 100 unit/mL (3 mL) pen for injection, Inject 15 Units under the skin 3 (three) times a day before meals, Disp: 84 mL, Rfl: 2 insulin glargine (LANTUS) 100 unit/mL (3 mL) pen for injection, Inject 20 Units under the skin daily, Disp: 30 mL, Rfl: 5 lancets (MICROLET LANCET) [facility], test by fingerstick route 3 times daily, Disp: 300 each, Rfl: 3 melatonin 3 mg tablet,disintegrating, Take 1 tablet by mouth nightly as needed (Patient not taking:Reported on 08/27/2023), Disp: , Rfl: montelukast (SINGULAIR) 10 mg tablet, TAKE 1 TABLET BY MOUTH AT BEDTIME FOR ALLERGIES, Disp: 90 tablet, Rfl: 5 naloxone (NARCAN) 4 mg/actuation spray,non-aerosol, Administer 1 spray into affected nostril(s) as needed for opioid reversal, Disp: 1 each, Rfl: 0 omeprazole (PriLOSEC) 20 mg capsule, TAKE 1 CAPSUEL BY MOUTH TWICE DAILY FOR GERD, Disp: 180 capsule, Rfl: 5 pen needle, diabetic (BD Ultra-Fine Mini Pen Needle) 31 gauge x 3/16 needle, 1 needle as directed,Disp: 300 each, Rfl: 3 polyethylene glycol (MIRALAX) 17 gram/dose powder, Take 17 g by mouth daily, Disp: 850 g, Rfl: 1 semaglutide (Ozempic) 2 mg/dose (8 mg/3 mL) pen injector injection, INJECT 2 MG SUBCUTANEOUSLY ONE TIME PER WEEK, Disp: 2 mL, Rfl: 3 simvastatin (ZOCOR) 40 mg tablet, TAKE 1 TABLET BY MOUTH AT BEDTIME, Disp: 90 tablet, Rfl: 5 ALLERGIES She has no known allergies. SOCIAL HISTORY She reports that she has never smoked. She has never used smokeless tobacco. She reports that she does not use drugs. Patient denies consuming alcoholic drinks. REVIEW OF SYSTEMS Review of Systems A complete review of 10 systems was completed and negative unless noted above in history of presentillness or intake questionnaire. Objective VITAL SIGNS There were no vitals taken for this visit. PHYSICAL EXAM On the exam they are awake, alert and in no apparent distress.. Mauricio's was negativeThe patient'sgait was unsteady with a walker. No significant pain to palpation of her cervical thoracic or lumbar midline and paraspinous muscular. Sensation intact to bilateral upper and lower extremities to touch. Upper Extremity Right strength Deltoid: 5/5 strength Bicep: 5/5 strength. Tricep: 5/5 strength. Wrist extension: 5/5 strength.Wrist flexion: 5/5 strength.Workday Financials Consultant: 5/5 strength.Hand intrinsics: 5/5 strength Left strength Deltoid: 5/5 strength.Bicep: 5/5 strength. Tricep: 5/5 strength. Wrist extension: 5/5 strength. Wrist flexion: 5/5 . Workday Financials Consultant: 5/5 strength. Hand intrinsics: 5/5 strength. Right reflexes Bicep reflex: 2+ Tricep reflex: 2+ Patellar reflex: 2+ Achilles reflex: 2+ Left reflexes Bicep reflex: 2+ Tricep reflex: 2+ Patellar reflex: 2+ Achilles reflex: 2+ Lower Extremity Right strength Right iliopsoas: 5/5 strength. Right quadricep: 5/5 strength. Right hamstrin/5 strength. Right gastrocsoleus: 5/5 strength. 5/5 dorsiflexion. 5/5 plantar flexion. 5/5 EHL. Left strength Left iliopsoas 5/5 strength. Left quadricep: 5/5 strength. Left hamstrin/5 strength. Left gastrocsoleus: 5/5 strength. 5/5 dorsiflexion. 5/5 plantar flexion. 5/5 EHL. REVIEW OF IMAGES XR Spine Cervical Complete 4 or 5 Views Narrative: EXAMINATION: XR SPINE CERVICAL COMPLETE 4 OR 5 VW HISTORY: Spinal stenosis FINDINGS: 4 radiographs of the cervical spine are submitted for interpretation with comparison made to MRI dated 07/29/2023. Loss of normal cervical lordosis. Changes of C3-C7 anterior cervical discectomy with mature bony fusion across these levels. Evaluation of the C7-T1 level is prevented by superimposed shoulder soft tissues. Known listhesis at this level is not visualized. Multilevel bilateral osseous neuroforaminal narrowing. No acute fracture. Impression: 1. Changes of C3-C7 anterior cervical discectomy with mature bony fusion across these levels. 2. Multilevel bilateral osseous neuroforaminal narrowing. Dictated by: Clayton Lagos MD The radiology attending physician has personally reviewed this study, and had reviewed and/or edited this written report and agrees with it. Electronically signed by: Jim Elizabeth MD MRI of the cervical spine without contrast obtained on July 29, 2023: FINDINGS: The assessment is suboptimal due to motion and intrinsic acquisition related limitations. ALIGNMENT: Straightening of the cervical lordosis with grade 1 anterolisthesis of C7 on T1 measuring 5 mm. VERTEBRAE: Unchanged osseous fusion of C3-C7. No acute fracture identified. Severe endplate degenerative changes at C7-T1 with mild marrow edema. No marrow replacing process. DISCS: Severe disc height loss and desiccation at C7-T1. Osseous fusion across the C3-C7 disc spaces. HARDWARE: Interdisc devices at C3-C7. CORD: Severe cord impingement with T2 hyperintensity at the level of C6-C7 that is grossly similar to 01/17/2022. Minimal faint T2 hyperintensity in the cord at the C3-C4 level, sagittal T2 series image 7. This can not be definitively correlated on the other images and may be artifactual. INDIVIDUAL LEVELS: C1-C2: C1-C2 degenerative changes with no significant spinal canal stenosis. C2-C3: No significant disc bulge. Uncovertebral and facet arthropathy. Mild spinal canal stenosis. Severe bilateral neural foraminal stenosis. C3-C4: Postoperative fusion with no significant spinal canal stenosis. Uncovertebral and facet arthropathy. [id number] bilateral neural foraminal stenosis. C4-C5: Postoperative fusion with mild spinal canal stenosis. Uncovertebral and facet arthropathy. Moderate left and mild right neural foraminal stenosis. C5-C6: Postoperative fusion with moderate spinal canal stenosis. Uncovertebral and facet arthropathy. Moderate spinal canal stenosis. Moderate left and [id number] right neural foraminal stenosis. C6-C7: Postoperative fusion with moderate spinal canal stenosis. Uncovertebral and facet arthropathy. Limited evaluation of the neural foramen with at least moderate bilateral neural foraminal stenosis. C7-T1: Disc unroofing with disc osteophyte complex. Uncovertebral and facet arthropathy with ligamentum flavum hypertrophy. Severe spinal canal stenosis. The neural foramen are not well visualized but suspect severe bilateral neural foraminal stenosis. BASE OF BRAIN: No acute finding. UPPER THORACIC: Incompletely imaged. No high-grade spinal stenosis or foraminal stenosis. OTHER: No other significant finding. IMPRESSION: Postoperative fusion of C3-C7 with unchanged moderate spinal canal stenosis at the C5-C6 and C6-C7 levels. Severe degenerative changes at C7-T1 with worsening grade 1 anterolisthesis contributing to severe spinal canal and suspected severe bilateral neural foraminal stenosis. There is severe cord impingement with T2 hyperintensity at this level that is grossly similar to the 01/17/2022 cervical spine MRI. Additional multilevel degenerative changes detailed above. THIS IS AN ELECTRONICALLY VERIFIED FINAL REPORT 07/29/2023 1:43 PM - Electronically signed by Alexey Wagner M.D. Plan I had a long discussion with the patient, her sister and niece regarding her current imaging and complaints. At this time, the patient is suffering from cervical myelopathy. I would like to discuss the patient with Dr. Castillo to finalize a plan. We discussed the patient's high hemoglobin A1c and I will reach out to her primary care provider about attempting to control her blood glucose levels. I will call the patient with a finalized plan and I am encouraged her to call with any new or worsening symptoms, questions or concerns in the interim. Lizbet Stewart NP Cosigned by Brennan Castillo MD at 09/16/2023 8:13 PM COMMERCIAL REAL ESTATE AGENT ERCIAL REAL ESTATE AGENT ERCIAL REAL ESTATE AGENT ERCIAL REAL ESTATE AGENT documented in this encounter Plan of Treatment Not on file documented as of this encounter Visit Diagnoses Diagnosis Degenerative cervical spinal stenosis Spinal stenosis in cervical region documented in this encounter Historical Medications * This list may reflect changes made after this encounter. amoxicillin 500 mg capsule Take 4 tablet/capsul e (2,000 mg total) by mouth Before dentist 09/04/2023 12/29/2023 added in this encounter Orders Outpatient Referral Count Last Ordered Date Fir st Ordered Date AMB REFERRAL TO NEUROSURGERY 1 09/16/2023 documented in this encounter Care Teams Manufacturing Accountant Relationship Specialty Start Date End Date Lalito England MD [address] [place] [address] PCP - General 08/03/19 documented as of this encounter
--- OUTSIDE RECORDS SUMMARY | 2024-07-11 22:36 | XMS_ITS | Encounter Summary ---
Author Organization [facility] Healthcare Address [address] [place] [address] Care Team Providers Care Child Care Specialist Name Role Phone Lalito England MD Primary Care Provider [phone] [phone] Reason for Referral * MRI/CAT/PET Scan (Routine) - Closed Specialty Diagnoses / Procedures Referred By Contac t Referred To Contact Radiology Diagnoses Degenerative cervical spinal stenosis Procedures MRI [place]ical [place] [address] [place] [address] Phone: tel: fax: [address] [address] Referral ID Status Reason Start Date Expiration Date Visits Re quested Visits Authorized [id number] Closed 07/29/2023 10/27/2023 1 1 STER COOK Reason for Visit * MRI/CAT/PET Scan (Routine) - Closed Specialty Diagnoses / Procedures Referred By Contac t Referred To Contact Radiology Diagnoses Degenerative cervical spinal stenosis Procedures MRI [place]ervical [place] [address] [place] [address] Phone: tel: fax: [address] [address] Referral ID Status Reason Start Date Expiration Date Visits Re quested Visits Authorized [id number] Closed 07/29/2023 10/27/2023 1 1 Encounter Details Date Type Department Care Team (Latest Contact Info) Description 07/29/2023 10:57 AM DIGESTER COOK - 07/29/2023 11:59 PM DIGESTER COOK Hospital Encounter [facility] [address] [place] [address] Degenerative cervical spinal stenosis Discharge Disposition: Discharge [...] more points, staff should administer the PHQ-9) 1 05/26/2023 PRAPARE - Transportation Answer Date Re corded [...] on file Legal Sex Female 11:52 PM DIGESTER COOK Gender Identity Not on file Sexual Orientation Not on file documented as of this encounter Medications at Time of Discharge blood-glucose meter (CONTOUR NEXT USB METER) misc test as directed 1 each 0 07/04/2014 cloNIDine (CATAPRES) 0.1 mg tabletIndications :Hypertension associated with type 2 diabetes mellitus (HCC) TAKE 1/2 TABLET BY MOUTH TWICE DAILY FOR HYPERTENSION 90 tablet 6 06/12/2023 insulin aspart (NovoLOG) 100 unit/mL (3 mL) pen for injectionIndicati ons:Controlled type 2 diabetes mellitus with diabetic polyneuropathy, without long-term current use of insulin ([facility]) Inject 15 Units under the skin 3 (three) times a day before meals 84 mL 2 04/14/2023 lancets (MICROLET LANCET) misc test by fingerstick route 3 times daily 300 each 3 07/26/2015 montelukast (SINGULAIR) 10 mg tablet TAKE 1 TABLET BY MOUTH AT BEDTIME FOR ALLERGIES 90 tablet 5 06/12/2023 naloxone (NARCAN) 4 mg/actuation spray,non-aerosol Administer 1 spray into affected nostril(s) as needed for opioid reversal 1 each 12/28/2021 simvastatin (ZOCOR) 40 mg tabletIndications :Controlled type 2 diabetes mellitus with diabetic polyneuropathy, without long-term current use of insulin ([facility]) TAKE 1 TABLET BY MOUTH AT BEDTIME 90 tablet 5 06/12/2023 nystatin powder Apply topically 4 (four) times a day 60 g 3 08/05/2022 4 albuterol HFA (PROVENTIL HFA,VENTOLIN HFA,PROAIR HFA) 90 mcg/actuation inhaler Inhale 2 puffs every 6 (six) hours as needed for wheezing 1 each 2 08/07/2022 4 alendronate (FOSAMAX) 70 mg tabletIndications :Age-related osteoporosis without current pathological fracture TAKE 1 TABLET BY MOUTH EVERY FRIDAY FOR OSTEOPOROSIS 12 tablet 11 06/12/2023 4 apixaban (ELIQUIS) 5 mg tablet Take 1 tablet (5 mg total) by mouth 2 (two) times a day 4 aspirin 81 mg enteric coated tabletIndications :prevention of thrombosis Take 1 tablet (81 mg total) by mouth volunteer services assistant before breakfast 4 biotin 10,000 mcg capsule Take 1 capsule (10,000 mcg total) by mouth daily 4 blood glucose diagnostic (Contour Next Test Strips) strip Test blood sugar 3 times a day and will montior response. Dx: E11.22. 300 each 3 07/24/2022 4 calcium carbonate-vitamin D3 500 mg(1,250mg) -400 unit tablet Take one by mouth two times per day 0 0 08/10/2007 4 Eliquis 5 mg tablet TAKE 1 TABLET BY MOUTH TWICE DAILY 60 tablet 17 05/26/2023 4 fluticasone propionate (FLONASE) 50 mcg/actuation nasal sprayIndications: Seasonal allergic rhinitis due to pollen Administer 2 sprays into each nostril daily 48 mL 1 01/07/2023 4 fluticasone propionate (Flovent Diskus) 100 mcg/actuation diskus inhaler Inhale 1 puff 2 (two) times a day Rinse mouth with water after use. Do not swallow. 60 each 3 01/06/2023 4 furosemide (LASIX) 20 mg tablet Take 2 tablets (40 mg total) by mouth daily 180 tablet 4 10/23/2022 4 gabapentin (NEURONTIN) 100 mg capsule TAKE 1 CAPSULE BY MOUTH 3 TIMES DAILY FOR NEUROPATHY 270 capsule 1 06/08/2023 4 HYDROcodone-aceta minophen (NORCO) 5-325 mg per tablet Take 1 tablet by mouth every 6 (six) hours as needed for pain 120 tablet 07/18/2023 4 insulin glargine (LANTUS) 100 unit/mL (3 mL) pen for injection Inject 20 Units under the skin daily 30 mL 5 05/26/2023 4 melatonin 3 mg tablet,disintegra ting Take 1 tablet by mouth nightly as needed 4 omeprazole (PriLOSEC) 20 mg capsule TAKE 1 CAPSUEL BY MOUTH TWICE DAILY FOR GERD 180 capsule 5 03/25/2023 4 pen needle, diabetic (BD Ultra-Fine Mini Pen Needle) 31 gauge x /16 needle 1 needle as directed 300 each 3 07/24/2022 4 polyethylene glycol (MIRALAX) 17 gram/dose powder Take 17 g by mouth daily 850 g 1 07/24/2022 4 semaglutide (OZEMPIC) 2 mg/dose (8 mg/3 mL) pen injector injection Inject 2 mg under the skin once a week 3 mL 3 05/26/2023 4 documented as of this encounter Discharge Disposition Disposition Code Departure Means Destination Discharge to home or self care documented in this encounter Plan of Treatment Not on file documented as of this encounter Procedures Procedure Name Priority Date/Time Associated Diagnosis Comments MRI CERVICAL SPINE WO CONTRAST Schedule Routine, Read Routine (OP Routine) 07/29/2023 11:27 AM DIGESTER COOK Degenerative cervical spinal stenosis documented in this encounter Results * MRI Cervical Spine WO Contrast (07/29/2023 11:27 AM DIGESTER COOK) Anatomical Region Laterality Modality Spine N/A Magnetic Resonan ce 07/29/2023 11:5 0 AM DIGESTER COOK Narrative 07/29/2023 1:43 PM DIGESTER COOK EXAM DESCRIPTION: ?? MRI CERVICAL SPINE WO CONTRAST REASON FOR STUDY: ?? Myelopathy, chronic, cervical spine; cervical stenosis , pain for years ?? TECHNIQUE: Sagittal and Axial imaging includes T1, T2, STIR and gradient echo sequences. ? COMPARISON: ?? Cervical spine MRI 01/17/[address] 09/04/2021 FINDINGS: ??The assessment is suboptimal due to motion and intrinsic acquisition related limitations. ALIGNMENT: ?? Straightening of the cervical lordosis with grade 1 anterolisthesis of ??C7 on T1 measuring 5 mm. VERTEBRAE: ?? Unchanged osseous fusion ??of C3-C7. ??No acute fracture identified. ??Severe endplate degenerative changes at C7-T1 with mild marrow edema. ??No marrow replacing process. DISCS: ?? Severe disc height loss and desiccation at C7-T1. ??Osseous fusion across the C3-C7 disc spaces. HARDWARE: ?? Interdisc devices at C3-C7. CORD: ?? Severe cord impingement with T2 hyperintensity at the level of C6-C7 that is grossly similar to 01/17/2022. ??Minimal faint T2 hyperintensity in the cord at the C3-C4 level, sagittal T2 series image 7. ??This can not be definitively correlated on the other images and may be artifactual. INDIVIDUAL LEVELS: C1-C2: ?? C1-C2 degenerative changes with no significant spinal canal stenosis. C2-C3: ?? No significant disc bulge. ??Uncovertebral and facet arthropathy. ?? Mild spinal canal stenosis. ??Severe bilateral neural foraminal stenosis. C3-C4: ?? Postoperative fusion with no significant spinal canal stenosis. ?? Uncovertebral and facet arthropathy. ??Bfca-vg-cccgsklv bilateral neural foraminal stenosis. C4-C5: ?? Postoperative fusion with mild spinal canal stenosis. ??Uncovertebral and facet arthropathy. ??Moderate left and mild right neural foraminal stenosis. C5-C6: ?? Postoperative fusion ??with moderate spinal canal stenosis. Uncovertebral and facet arthropathy. Moderate spinal canal stenosis. ??Moderate left and xsar-qt-dqigfxon right neural foraminal stenosis. C6-C7: ?? Postoperative fusion with moderate spinal canal stenosis. ?? Uncovertebral and facet arthropathy. ??Limited evaluation of the neural foramen with at least moderate bilateral neural foraminal stenosis. C7-T1: ?? Disc unroofing with disc osteophyte complex. ??Uncovertebral and facet arthropathy with ligamentum flavum hypertrophy. ??Severe spinal canal stenosis. The neural foramen are not well visualized but suspect severe bilateral neural foraminal stenosis. BASE OF BRAIN: ?? No acute finding. UPPER THORACIC: ?? Incompletely imaged. No high-grade spinal stenosis or foraminal stenosis. OTHER: ?? No other significant finding. IMPRESSION: Postoperative fusion [...] 07/29/2023 1:43 PM - Electronically signed by ??Alexey Wagner M.D. AG: ERIC D: ??07/29/2023 1:43 PM T: ??07/29/2023 1:43 PM Report ID: [id number] Reading Location: ??[id number] Procedure Note Alexey Wagner MD - 07/29/2023 EXAM DESCRIPTION: MRI CERVICAL SPINE WO CONTRAST REASON FOR STUDY: Myelopathy, chronic, cervical spine; cervical stenosis , pain for years TECHNIQUE: Sagittal and Axial imaging includes T1, T2, STIR and gradientecho sequences. COMPARISON: Cervical spine MRI 01/17/[address] 09/04/2021 FINDINGS: The assessment is suboptimal due to motion and intrinsic acquisitionrelated limitations. ALIGNMENT: Straightening of the cervical lordosis with grade 1 anterolisthesis of C7 on T1 measuring 5 mm. VERTEBRAE: Unchanged osseous fusion of C3-C7. No acute fracture identified. Severe endplate degenerative changes at C7-T1 with mildmarrow edema. No marrow replacing process. DISCS: Severe disc height loss and desiccation at C7-T1. Osseous fusion across the C3-C7 disc spaces. HARDWARE: Interdisc devices at C3-C7. CORD: Severe cord impingement with T2 hyperintensity at the level ofC6-C7 that is grossly similar to 01/17/2022. Minimal faint T2 hyperintensity inthe cord at the C3-C4 level, sagittal T2 series image 7. This can not be definitively correlated on the other images and may be artifactual. INDIVIDUAL LEVELS: C1-C2: C1-C2 degenerative changes with no significant spinal canalstenosis. C2-C3: No significant disc bulge. Uncovertebral and facet arthropathy. Mild spinal canal stenosis. Severe bilateral neural foraminal stenosis. C3-C4: Postoperative fusion with no significant spinal canal stenosis. Uncovertebral and facet arthropathy. Xchk-ue-mdaaxkqi bilateral neural foraminal stenosis. C4-C5: Postoperative fusion with mild spinal canal stenosis.Uncovertebral and facet arthropathy. Moderate left and mild right neural foraminal stenosis. C5-C6: Postoperative fusion with moderate spinal canal stenosis. Uncovertebral and facet arthropathy. Moderate spinal canal stenosis.Moderate left and fmma-qb-ufxmffku right neural foraminal stenosis. C6-C7: Postoperative fusion with moderate spinal canal stenosis. Uncovertebral and facet arthropathy. Limited evaluation of the neuralforamen with at least moderate bilateral neural foraminal stenosis. C7-T1: Disc unroofing with disc osteophyte complex. Uncovertebral andfacet arthropathy with ligamentum flavum hypertrophy. Severe spinal canalstenosis. The neural foramen are not well visualized but suspect severe bilateral neural foraminal stenosis. BASE OF BRAIN: No acute finding. UPPER THORACIC: Incompletely imaged. No high-grade spinal stenosis or foraminal stenosis. OTHER: No other significant finding. IMPRESSION: Postoperative fusion of C3-C7 with unchanged moderate spinal canalstenosis at the C5-C6 and C6-C7 levels. Severe degenerative changes at C7-T1 with worsening grade 1anterolisthesis contributing to severe spinal canal and suspected severe bilateral neural foraminal stenosis. There is severe cord impingement with Q5lzyutvndfplhru at this level that is grossly similar to the 01/17/2022 cervical spine MRI. Additional multilevel degenerative changes detailed above. THIS IS AN ELECTRONICALLY VERIFIED FINAL REPORT 07/29/2023 1:43 PM - Electronically signed by Alexey Wagner M.D. AG: AG Report ID: [id number] Reading Location: [place] [address] Gera Barbosa MD IMG MRI PROCEDURES Final Resul t documented in this encounter Visit Diagnoses Diagnosis Degenerative cervical spinal stenosis Spinal stenosis in cervical region documented in this encounter Care Teams Child Care Specialist Relationship Specialty Start Date End Date Lalito England MD [address] [place] [address] PCP - General 08/03/19 documented as of this encounter
--- OUTSIDE RECORDS SUMMARY | 2024-07-11 22:36 | XMS_ITS | Encounter Summary ---
Author Organization [facility] Healthcare Address [address] [place] [address] Care Team Providers Care Sales Review Clerk Name Role Phone Lalito England MD Primary Care Provider [phone] [phone] Reason for Visit * Reason Onset Date Comments Referral Request 09/04/2023 Encounter Details Date Type Department Care Team (Late st Contact Info) Description 09/04/2023 Telephone [facility] [address] [facility] [place] [address] Lalito England MD [address] [facility] [place] [address] Referral Request Social History Tobacco [...] health care facility (including now)? No 07/16/2022 Personal Safety Answer Date Recorded Getting School Help Needed Not on file 06/28 Comments No Sex and Gender Information Value Date Recorded Sex Assigned at Not on file Legal Sex Female 11:52 PM RESOURCE MANAGEMENT SPECIALIST Gender Identity Not on file Sexual Orientation Not on file documented as of this encounter Miscellaneous Notes * Telephone Encounter - Stormy Ibrahim - 09/04/2023 12:52 PM CST LMOR - referral faxed, confirmation received URCE MANAGEMENT SPECIALIST * Telephone Encounter - Graciela Stacy - 09/04/2023 12:00 PM CST Referral Provider Name (if patient is seeing a nurse practitioner or physician loan assistant, list the 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 ADMINISTRATOR/PA, but also their collaborating doctor): Dr Radha Covington Specialty: Dermatology Address: [address] [place] [address], Zip: [place] [address] per doclookup Diagnosis Code/Symptom/Reason Patient is being seen: spots on arm Date of Appointment: 09/26/23 NPI#: [id number] Tax ID#: not provided Is insurance in chart up to date? [employer] Additional Comments: see above Does message need to be routed? Yes-Action Needed URCE MANAGEMENT SPECIALIST documented in this encounter Plan of Treatment Not on file documented as of this encounter Visit Diagnoses Not on filedocumented in this encounter Care Teams Sales Review Clerk Relationship Specialty Start Date End Date Lalito England MD [address] [place] [address] PCP - General 08/03/19 documented as of this encounter
--- OUTSIDE RECORDS SUMMARY | 2024-07-11 22:36 | XMS_ITS | Encounter Summary ---
Author Organization [facility] Address [address] [place] [address] Phone Care Team Providers Care Fisheries Management Biologist Name Role Phone Lalito England MD Primary Care Provider [phone] [phone] Encounter Details Date Type Department Care Team (Late st Contact Info) Description 10/08/2023 Telephone [facility] Neurosurgery [address] [facility] Medical Office [address] [place] [address] Brennan Castillo MD [address] [place] [address] Social History Tobacco Use Types [...] in a retirement (including now)? No 07/16/2022 Personal Safety Answer Date Recorded Have you ever been in or are you currently in a harmful physical or emotional relationship or is someone making you feel afraid or unsafe? Denies 11/14/2023 Comments No Sex and Gender Information Value Date Recorded Sex Assigned at Not on file Legal Sex Female 11:52 PM FLAT CUTTER Gender Identity Not on file Sexual Orientation Not on file documented as of this encounter Miscellaneous Notes * Telephone Encounter - Yola Reaves - 11/20/2023 3:12 PM CDT Confirmed surgery arrival time with patient of 12:00PM. * Telephone Encounter - Yola Reaves - 11/19/2023 11:05 AM CDT Surgery arrival time sent to patient of 12:00PM. * Telephone Encounter - Yola Reaves - 11/13/2023 10:04 AM CDT Due to Eliquis unable to move up surgery to 11/17. * Telephone Encounter - Donnie Camarillo - 11/07/2023 4:18 PM CDT Medical clearance approval scanned in chart * Telephone Encounter - Yola Reaves - 11/05/2023 12:05 PM CDT Surgery clearance resent to PCP office as urgent. * Telephone Encounter - Yola Reaves - 10/23/2023 9:16 AM CDT SURGERY SCHEDULING CHECK LIST Dr. Castillo Surgery Location:[facility] Surgery name: C6-T2 posterior spinal fusion with a C7-T1 decompression and bilateral foraminotomies Surgery Date: 11/24/2023 Arrival time confirmed: . []Yes []NO [x]TBD OR consents in chart: [x]Yes []NO On MD Calendar: [x]Yes []NO Pre-Op Testing scheduled: Radiology ([phone]) [x]N/A: CPAP/TPAP ([phone]) scheduled: [x]Yes []NO []N/A Date: 11/14/2023 10:00 AM []CAM [x]BWC []S[facility] CAM 6 Week POP appointment made: [x]Yes []NO [] RN []N/A Date/Time:01/07/2024 12:30 PM Email sent for equipment: Monitoring or Reps: [x]Yes []NO []N/A Date sent:10/23/2023 Surgical Clearance letter sent to specialist: [x]Yes []NO []N/A If yes, - Name of medication: Marlon - PCP Dr. England -scanned to media * Telephone Encounter - Yola Reaves - 10/23/2023 9:12 AM CDT Spoke with patient by phone to go over surgery dates. Patient accepted date of 11/24/2023. Advised pre-op will reach out to set up appt prior to surgery. Will also follow up with patient closer to surgery to confirm surgery arrival time. * Telephone Encounter - Yola Reaves - 10/21/2023 4:40 PM CDT Surgery intro sent via my-chart to patient. Offered surgery date of 11/23. * Telephone Encounter - Aria Faye RN - 10/17/2023 12:26 PM CDT GAUGER CHIEF DELIVERY SCHEDULING CHECKLIST Surgery Name: C6-T2 posterior spinal fusion with a C7-T1 decompression and bilateral foraminotomies Prep for case entered: [x] Yes Reviewed consent is signed and in media: [x] Yes [] If no, reason why Reviewed equipment sheet is in media with cut to close: [x] Yes []If no, reason why Called patient and reviewed RN education: [x] Yes [] If no, reason why On MD Calendar [] Yes [x] No CPAP NEEDED [x] OR TPAP [] Post op appointment needs: 6 weeks Order entered for : Hibiclens: [] Yes [] No [x]To be given at CPAP Mupirocin:[x] Yes [] No []N/A Patient on blood thinners? [x] Yes []No If yes, - Name of medication: Marlon - PCP Dr. England -letter sent * Telephone Encounter - Elzbieta Villanueva CMA - 10/17/2023 10:13 AM CDT Signed consent scanned in under media. Per CM: cut to close 4 HOURS * Telephone Encounter - Elzbeita Villanueva CMA - 10/13/2023 8:53 AM CDT CM unable to sign consents on 10/09/23, will have him sign on 10/15/23 and scan into chart when complete. * Telephone Encounter - Elzbieta Villanueva CMA - 10/08/2023 12:08 PM CDT MA SURGERY SCHEDULING CHECK LIST Surgery Name: C6-T2 Posterior Spinal Fusion with a C7-T1 Decompression and Bilateral Foraminotomies Consent signed: [] By MD [x] By patient If no, reason why: CM IN CLINIC, WILL SIGN AND SCAN INTO CHART AT END OF DAY Equipment sheet completed with cut to close: [] Yes [] If no, reason why Equipment sheet scanned: [] Yes Signed Consent scanned: [] Yes Name of equipment Monitoring or Reps:[]Yes []NO [x]N/A Pre-Op Testing needed: []MRI: [] Order entered []CT: [] Order entered []Dexascan [] Order entered []EMG [] Order entered []Pre op Angiogram [] Order entered []Intraop Angiogram [] Order entered []Audiogram [] Order entered ([phone] [facility] 11th floor [address]) [x]N/A Post op XR orders entered: []Yes [x]N/A XR ORDERS WILL BE PLACED PRIOR TO 6 WK POST OP APPT IF NECESSARY Surgery packet/ guidelines given to patient [x]Yes []No If no, reason why? CM IN CLINIC, WILL SIGN AND SCAN INTO CHART AT END OF DAY Patient will need PCP clearance to be off Eliquis (1 wk prior, 2 wk after) - Dr. Lalito England ([facility]) Please schedule CPAP at [facility]. Patient wanted to make office aware that she has a melanoma removal scheduled for 4/15, FYI when scheduling surgery. documented in this encounter Plan of Treatment Not on file documented as of this encounter Visit Diagnoses Not on filedocumented in this encounter Care Teams Fisheries Management Biologist Relationship Specialty Start Date End Date Lalito England MD [address] [place] [address] PCP - General 08/03/19 documented as of this encounter
--- OUTSIDE RECORDS SUMMARY | 2024-07-11 22:36 | XMS_ITS | Encounter Summary ---
Author Organization [facility] Healthcare Address [address] [place] [address] Care Team Providers Care Salesforce Trainer Name Role Phone Lalito England MD Primary Care Provider [phone] Reason for Visit * Reason Onset Date Comments Med Refill 08/19/2023 Encounter Details Date Type Department Care Team (Late st Contact Info) Description 08/19/2023 Telephone [facility] [address] [facility] [place] [employer] [place] [address] Lalito England MD [address] [place] [address] Med Refill Social History Tobacco Use Types Packs/Day Years [...] in a detention (including now)? No 07/16/2022 Personal Safety Answer Date Recorded Getting School Help Needed Not on file 06/28 Comments No Sex and Gender Information Value Date Recorded Sex Assigned at Not on file Legal Sex Female 11:52 PM CONSIGNEE Gender Identity Not on file Sexual Orientation Not on file documented as of this encounter Miscellaneous Notes * Telephone Encounter - Devi George MA - 08/20/2023 8:14 AM CST Spoke w/ pt and she is aware. Advised pt to keep track of blood sugars and contact our office sometime next week to see how they are doing. Pt verbalized understanding. IGNEE * Telephone Encounter - Devi George MA - 08/19/2023 4:04 PM CST Spoke w/ pt and she states that her blood sugars have been averaging in the 300's and sometimes in the 400's. Pt wanting to know if she can get an increase of the ozempic. After reviewing in chart itappears that ozempic only goes up to 2 mg dosage. Pt states that she has been on ozempic for about 6 months and states that she just doesn't feel that it is effective anymore. Pt states that the onlyother medications she takes for diabetes is aspart and does 15 units 3x daily and semglee 20 units daily. Pt wanting to know if you have any suggestions on medications that will help lower her blood sugar? Is there another injection you would recommend or medication? Please advise thanks IGNEE * Telephone Encounter - Ludmila Chen - 08/19/2023 3:56 PM CST Medication Question/Clarification Medication Name(s): semaglutide (OZEMPIC) 2 mg/dose (8 mg/3 mL) pen injector injection What is the question or clarification needed? Patient states the 2mg dose isn't controlling her blood sugar. She is requesting rx be increased to the 2.5mg dose If needed, Pharmacy(s) medication(s) should be sent to: [facility] [address] IN [place], [place] Additional Comments: NA Does message need to be routed? Yes-Action Needed IGNEE documented in this encounter Plan of Treatment Not on file documented as of this encounter Visit Diagnoses Not on filedocumented in this encounter Care Teams Salesforce Trainer Relationship Specialty Start Date End Date Lalito England MD [address] [place] [address] PCP - General 08/03/19 documented as of this encounter
--- OUTSIDE RECORDS SUMMARY | 2024-07-11 22:36 | XMS_ITS | Encounter Summary ---
Author Organization [facility] Healthcare Address [address] [place] [address] Care Team Providers Care Diver Tender Name Role Phone Lalito England MD Primary Care Provider [phone] Reason for Referral * Consultation (Routine) - Closed Specialty Diagnoses / Procedures Referred By Contac t Referred To Contact Gastroenterology Diagnoses Hx of colonic polyps Family history of malignant neoplasm of digestive organ Lalito England MD [address] [place] [address] Phone: tel: fax: Karlene Givens MD [address] [place] [address] [address] Phone: tel: fax: Referral ID Status Reason Start Date Expiration Date V isits Requested Visits Authorized [id number] Closed Specialty Services Required 10/06/2023 10/06/2024 12 12 Question Answer Process Instructions: THE AMBULATORY REFERRAL TO GASTROENTEROLOGY IS NOT AN ORDER FOR A PROCEDURE (I.E. EGD, COLONOSCOPY.) USE THE DIRECT SCHEDULING CASE REQUEST ORDER (GI50) IF THE PATIENT REQUIRES A PROCEDURE TO BE PERFORMED. Please select the performing region: [facility] [[id number]] Please select the performing department: [facility] [place] [place] [[id number]] To provider: KARLENE GIVENS [[id number]] # of visits: 1 Encounter Details Date Type Department Care Team (Late st Contact Info) Description 10/06/2023 Telephone [facility] [address] [place] [address] Lalito England MD [address] [place] [address] Social History Tobacco Use Types Packs/Day Years [...] a long term (including now)? 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 Givens Appt: 11/03/23 Dx: Z86.010, Z80.0 Referral processed documented in this encounter Plan of Treatment Scheduled Referrals Name Type Priority Associated Diagnoses Order Schedule Ambulatory referral to Gastroenterology Outpatient Referral Routine Hx of colonic polyps Family history of malignant neoplasm of digestive organ Expected: 10/20/2023 (Approximate), Expires: 10/05/2024 documented as of this encounter Visit Diagnoses Diagnosis Hx of colonic polyps- Primary Personal history of colonic polyps Family history of malignant neoplasm of digestive organ Family history of malignant neoplasm of gastrointestinal tract documented in this encounter Care Teams Diver Tender Relationship Specialty Start Date End Date [place] [address] PCP - General 08/03/19 documented as of this encounter
--- OUTSIDE RECORDS SUMMARY | 2024-07-11 22:36 | XMS_ITS | Encounter Summary ---
Author Organization [facility] Healthcare Address [address] [place] [address] Care Team Providers Care Fashion Coordinator Name Role Phone Lalito England MD Primary Care Provider [phone] Encounter Details Date Type Department Care Team (Late st Contact Info) Description 05/27/2023 Telephone [facility] Gastroenterology at [address] [place] [address] Omaira Ha Social History Tobacco Use Types Packs/Day Years [...] in a custodial (including now)? 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 Ly scheduled her colonoscopy for 11/03/2023 @ 1030 AM Last colonoscopy: 09/28/2018 Family history colon cancer (if yes, relationship to pt): father Personal history colon polyps or colon cancer: polyps Pt on blood thinner (if yes, list medication and reason for taking): Eliquis taken for past dvt Has pt had recent stent placement within the last year: no Pt have pacemaker/defibrillator: no Pt diabetic (if yes, insulin or oral meds): Ozempic, insulin (instructed patient to hold Ozempic 7 days prior to procedure) Pt have kidney disease or on dialysis: low kidney function Pt on iron: no Hx of Constipation: chromic Mechanical Heart valve: no Instructed pt to call with any medical changes and/or medications/insurance. ROAD SHOP INSPECTOR documented in this encounter Plan of Treatment Not on file documented as of this encounter Visit Diagnoses Diagnosis Family history of colon cancer in father- Primary Encounter for screening colonoscopy Adenomatous polyp of colon, unspecified part of colon documented in this encounter Orders Case Request Count Last Ordered Date First Orde red Date CASE REQUEST GI 1 05/27/2023 documented in this encounter Care Teams Fashion Coordinator Relationship Specialty Start Date End Date Lalito England MD [address] [place] [address] PCP - General 08/03/19 documented as of this encounter
--- OUTSIDE RECORDS SUMMARY | 2024-07-11 22:36 | XMS_ITS | Encounter Summary ---
Author Organization [facility] Healthcare Address [address] [place] [address] Care Team Providers Care Instrument Mechanic Name Role Phone Lalito England MD Primary Care Provider [phone] Reason for Visit * Reason Onset Date Comments Referral Request 10/27/2023 Encounter Details Date Type Department Care Team (Late st Contact Info) Description 10/27/2023 Telephone [facility] [address] [facility] [place] [address] Lalito England MD [address] [place] [address] Referral Request Social History Tobacco Use Types Packs/Day Years Used Date Smoking Tobacco: Never Smokeless Tobacco: Never Alcohol Use Standard Drinks/Week Comments Yes 0 (1 standard drink = 0.6 oz pur e alcohol) occasional AUDIT-C Answer Date Recorded Q1: How often do you have a drink containing alcohol? Never 10/08/2023 Q2: How many drinks containi ng alcohol do you have on a typical day when you are drinking? Patient does not drink Q3: How often do you have si x or more drinks on one occasion? Never 10/08/2023 Overall Financial Resource Strain (CARDIA) Answe r [...] in a custodial (including now)? 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 Specialty: Plastic Surgery PLS/Surgery of the Hand [facility]/Surgery Address: [address] [facility], Zip: [address] [place] [address] Diagnosis Code/Symptom/Reason Patient is being seen: (C43.61) Date of Appointment: 4/15/24 at 10:00 AM NPI#: [id number] Tax ID#: [id number] Is insurance in chart up to date? yes Additional Comments: Patient apologizes for the last minute request. She says she is not used to having an insurance that requires one.CS will send over as HP. Please advise and thank you so much Does message need to be routed? Yes-Action Needed documented in this encounter Plan of Treatment Not on file documented as of this encounter Visit Diagnoses Not on filedocumented in this encounter Care Teams Instrument Mechanic Relationship Specialty Start Date End Date Lalito England MD [address] [place] [address] PCP - General 08/03/19 documented as of this encounter
--- OUTSIDE RECORDS SUMMARY | 2024-07-11 22:36 | XMS_ITS | Encounter Summary ---
Author Organization [facility] Healthcare Address [address] [place] [address] Care Team Providers Care Procurement Professional Logistics Name Role Phone Lalito England MD Primary Care Provider [phone] Reason for Referral * MRI/CAT/PET Scan (Routine) - Closed Specialty Diagnoses / Procedures Referred By Contac t Referred To Contact Radiology Diagnoses Spinal stenosis of lumbar region with neurogenic claudication Procedures MRI Lumbar Spine WO Contrast Lalito England MD [address] [place] [address] Phone: tel: fax: [address] [phone] Referral ID Status Reason Start Date Expiration Date Visits Re quested Visits Authorized [id number] Closed 05/19/2023 06/17/2024 1 1 LE PACKER Reason for Visit * MRI/CAT/PET Scan (Routine) - Closed Specialty Diagnoses / Procedures Referred By Contac t Referred To Contact Radiology Diagnoses Spinal stenosis of lumbar region with neurogenic claudication Procedures MRI Lumbar Spine WO Contrast Lalito England MD [address] [place] [address] Phone: tel: fax: [address] [phone] Referral ID Status Reason Start Date Expiration Date Visits Re quested Visits Authorized [id number] Closed 05/19/2023 06/17/2024 1 1 Encounter Details Date Type Department Care Team (Latest Contact Info) Description 06/03/2023 10:52 AM BUNDLE PACKER - 06/03/2023 11:59 PM BUNDLE PACKER Hospital Encounter [facility] [address] [place] [address] Spinal stenosis of lumbar region with neurogenic claudication Discharge Disposition: Discharge to home or self [...] in a jail (including now)? 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 Gender Identity Not on file Sexual Orientation Not on file documented as of this encounter Medications at Time of Discharge blood-glucose meter (CONTOUR NEXT USB METER) misc test as directed 1 each 0 07/04/2014 insulin aspart (NovoLOG) 100 unit/mL (3 mL) pen for injectionIndicatio ns:Controlled type 2 diabetes mellitus with diabetic polyneuropathy, without long-term current use of insulin (HCC) Inject 15 Units under the skin 3 (three) times a day before meals 84 mL 2 04/14/2023 lancets (MICROLET LANCET) misc test by fingerstick route 3 times daily 300 each 3 07/26/2015 naloxone (NARCAN) 4 mg/actuation spray,non-aerosol Administer 1 spray into affected nostril(s) as needed for opioid reversal 1 each 12/28/2021 nystatin powder Apply topically 4 (four) times a day 60 g 3 08/05/2022 4 albuterol HFA (PROVENTIL HFA,VENTOLIN HFA,PROAIR HFA) 90 mcg/actuation inhaler Inhale 2 puffs every 6 (six) hours as needed for wheezing 1 each 2 08/07/2022 4 alendronate (FOSAMAX) 70 mg tabletIndications: Age-related osteoporosis without current pathological fracture TAKE 1 TABLET BY MOUTH ONE TIME PER WEEK 12 tablet 2 01/18/2022 3 apixaban (ELIQUIS) 5 mg tablet Take 1 tablet (5 mg total) by mouth 2 (two) times a day 4 aspirin 81 mg enteric coated tabletIndications: prevention of thrombosis Take 1 tablet (81 mg total) by mouth painter and decorator apprentice before breakfast 4 biotin 10,000 mcg capsule Take 1 capsule (10,000 mcg total) by mouth daily 4 blood glucose diagnostic (Contour Next Test Strips) strip Test blood sugar 3 times a day and will montior response. Dx: E11.22. 300 each 3 07/24/2022 4 calcium carbonate-vitamin D3 500 mg(1,250mg) -400 unit tablet Take one by mouth two times per day 0 0 08/10/2007 4 cloNIDine (CATAPRES) 0.1 mg tabletIndications: Hypertension associated with type 2 diabetes mellitus (HCC) TAKE 1/2 TABLET BY MOUTH TWO TIMES A DAY 90 tablet 1 12/19/2021 3 Eliquis 5 mg tablet TAKE 1 TABLET BY MOUTH TWICE DAILY 60 tablet 17 05/26/2023 4 fluticasone propionate (FLONASE) 50 mcg/actuation nasal sprayIndications:S easonal allergic rhinitis due to pollen Administer 2 [...] by mouth 3 (three) times a day 90 capsule 11 07/09/2021 3 HYDROcodone-acetam inophen (NORCO) 5-325 mg per tablet Take 1 tablet by mouth every 6 (six) hours as needed for pain 120 tablet 04/21/2023 3 insulin glargine (LANTUS) 100 unit/mL (3 mL) pen for injection Inject 20 Units under the skin daily 30 mL 5 05/26/2023 4 melatonin 3 mg tablet,disintegrat ing Take 1 tablet by mouth nightly as needed 4 montelukast (SINGULAIR) 10 mg tablet TAKE 1 TABLET BY MOUTH EVERYDAY AT BEDTIME 90 tablet 1 02/05/2022 3 omeprazole (PriLOSEC) 20 mg capsule TAKE 1 [...] a week 3 mL 3 05/26/2023 4 simvastatin (ZOCOR) 40 mg tabletIndications: Controlled type 2 diabetes mellitus with diabetic polyneuropathy, without long-term current use of insulin (HCC) TAKE 1 TABLET BY MOUTH EVERY DAY AT NIGHT 90 tablet 1 02/19/2022 3 documented as of this encounter Discharge Disposition Disposition Code Departure Means Destination Discharge to home or self care documented in this encounter Plan of Treatment Not on file documented as of this encounter Procedures Procedure Name Priority Date/Time Associated Diagnosis Comments MRI LUMBAR SPINE WO CONTRAST Schedule Routine, Read Routine (OP Routine) 06/03/2023 11:41 AM BUNDLE PACKER Spinal stenosis of lumbar region with neurogenic claudication documented in this encounter Results * MRI Lumbar Spine WO Contrast (06/03/2023 11:41 AM BUNDLE PACKER) Anatomical Region Laterality Modality Spine N/A Magnetic Resonan ce 06/03/2023 1:22 PM BUNDLE PACKER Narrative 06/03/2023 2:34 PM BUNDLE PACKER EXAM DESCRIPTION: ?? MRI LUMBAR SPINE WO CONTRAST REASON FOR STUDY: ?? Back pain or radiculopathy, > 6 wks ?? Low back pain, symptoms persist with > 6wks conservative treatment, Spinal stenosis of lumbar region with neurogenic claudication ? TECHNIQUE: ??Sagittal and Axial imaging includes T1, T2, STIR sequences. ? COMPARISON: ?? Lumbar spine MRI 07/02/2022 FINDINGS: SEGMENTATION: ?? No transitional anatomy. The lowest well-developed disc space is labeled L5-S1. ALIGNMENT: ?? Levoscoliosis centered at L3. ??Unchanged grade 1 anterolisthesis of L4 on L5 and trace retrolisthesis of L2 on L3. VERTEBRAE: ?? Vertebral body height is maintained with no acute compression deformity. ??Multilevel degenerative disc disease most advanced at L3-L4 and L4-L5 with prominent anterior marginal osteophytes. ??Multiple lumbar hemangiomas again noted. There are several foci of T1/T2 hypointensity in the lower thoracic and upper lumbar spine that are unchanged from 06/24/2022 and favor benign fibro-osseous lesions. ??For example a 0.7 cm lesion in the T12 vertebral body on sagittal T1 series image 6. DISC HEIGHT: ?? Multilevel disc height loss and desiccation severe at L2-L5. HARDWARE: ?? None in the spine. ?? Postoperative changes at L4-L5. CORD/CAUDA: ?? Normal in size and signal intensity. Conus medullaris terminates at the L1 level. ??Compressive redundancy of the cauda equina nerve roots again noted. LOWER THORACIC: ?? Incompletely imaged. ??Lower thoracic degenerative changes eajn-jg-lzdjlnbo spinal canal narrowing at T11-T12, sagittal T2 series image 7. INDIVIDUAL DISC LEVELS: L1-2: ?? Minimal disc bulge with facet arthropathy and ligamentum flavum hypertrophy. ??No significant spinal canal or neural foraminal stenosis. L2-3: ?? Osseous spurring and annular disc bulge narrowing the lateral recesses contacting the descending L3 nerve roots. ?? Aoxx-ry-cqsbmxgq facet arthropathy and ligamentum flavum hypertrophy. ??Prominent dorsal epidural fat. ??Moderate to severe spinal canal stenosis. ??Mild bilateral neural foraminal stenosis. L3-4: ?? Osseous spurring and annular disc bulge asymmetrically narrowing the right lateral recess contacting the descending L4 nerve roots, right greater than left. ??Severe facet arthropathy and ligamentum flavum hypertrophy. ?? Moderate to severe spinal canal stenosis. ??Severe bilateral neural foraminal stenosis with impingement of the exiting L3 nerve roots. L4-5: ?? Disc unroofing with annular disc bulge contacting the descending L5 nerve roots. ??Severe facet arthropathy. ??Moderate spinal canal stenosis. ?? Severe bilateral neural foraminal stenosis with impingement of the exiting L4 nerve roots. L5-S1: ?? Disc bulge with slight right foraminal extension. ??Severe facet arthropathy with ligamentum flavum hypertrophy. ??Moderate spinal canal stenosis. ?? Moderate left and severe right neural foraminal stenosis with impingement of the exiting right L5 nerve root. SACRUM: ?? Visualized upper sacrum intact. VISUALIZED UPPER ABDOMEN: ?? No significant abnormality. OTHER: ?? No other significant findings. IMPRESSION: Severe lumbar degenerative changes with up to moderate to severe spinal canal stenosis at L2-L3 and L3-L4 and severe neural foraminal stenosis bilaterally at L3-L4 and L4-L5 and on the right at L5-S1 with impingement of the corresponding exiting nerve roots. No significant degenerative progression compared to 06/24/2022. THIS IS AN ELECTRONICALLY VERIFIED FINAL REPORT 06/03/2023 2:34 PM - Electronically signed by ??Alexey Wagner M.D. AG: AG D: ??06/03/2023 2:34 PM T: ??06/03/2023 2:34 PM Report ID: [id number] Reading Location: ??[id number] Procedure Note Alexey Wagner MD - 06/03/2023 EXAM DESCRIPTION: MRI LUMBAR SPINE WO CONTRAST REASON FOR STUDY: Back pain or radiculopathy, > 6 wks Low back pain, symptoms persist with > 6wks conservative treatment, Spinal stenosis of lumbar region with neurogenic claudication TECHNIQUE: Sagittal and Axial imaging includes T1, T2, STIR sequences. COMPARISON: Lumbar spine MRI 07/02/2022 FINDINGS: SEGMENTATION: No transitional anatomy. The lowest well-developed discspace is labeled L5-S1. ALIGNMENT: Levoscoliosis centered at L3. Unchanged grade 1anterolisthesis of L4 on L5 and trace retrolisthesis of L2 on L3. VERTEBRAE: Vertebral body height is maintained with no acute compression deformity. Multilevel degenerative disc disease most advanced at L3-L4and L4-L5 with prominent anterior marginal osteophytes. Multiple lumbar hemangiomas again noted. There are several foci of T1/T2 hypointensity inthe lower thoracic and upper lumbar spine that are unchanged from 06/24/2022nd favor benign fibro-osseous lesions. For example a 0.7 cm lesion in theT12 vertebral body on sagittal T1 series image 6. DISC HEIGHT: Multilevel disc height loss and desiccation severe atL2-L5. HARDWARE: None in the spine. Postoperative changes at L4-L5. CORD/CAUDA: Normal in size and signal intensity. Conus medullaristerminates at the L1 level. Compressive redundancy of the cauda equina nerve rootsagain noted. LOWER THORACIC: Incompletely imaged. Lower thoracic degenerativechanges [id number]-id-rnuplmvp spinal canal narrowing at T11-T12, sagittal T2 seriesimage 7. INDIVIDUAL DISC LEVELS: L1-2: Minimal disc bulge with facet arthropathy and ligamentum flavum hypertrophy. No significant spinal canal or neural foraminal stenosis. L2-3: Osseous spurring and annular disc bulge narrowing the lateralrecesses contacting the descending L3 nerve roots. Okjj-no-aiahggfw facetarthropathy and ligamentum flavum hypertrophy. Prominent dorsal epidural fat.Moderate to severe spinal canal stenosis. Mild bilateral neural foraminalstenosis. L3-4: Osseous spurring and annular disc bulge asymmetrically narrowingthe right lateral recess contacting the descending L4 nerve roots, rightgreater than left. Severe facet arthropathy and ligamentum flavum hypertrophy. Moderate to severe spinal canal stenosis. Severe bilateral neuralforaminal stenosis with impingement of the exiting L3 nerve roots. L4-5: Disc unroofing with annular disc bulge contacting the descendingL5 nerve roots. Severe facet arthropathy. Moderate spinal canal stenosis. Severe bilateral neural foraminal stenosis with impingement of the exitingL4 nerve roots. L5-S1: Disc bulge with slight right foraminal extension. Severe facet arthropathy with ligamentum flavum hypertrophy. Moderate spinal canal stenosis. Moderate left and severe right neural foraminal stenosis with impingement of the exiting right L5 nerve root. SACRUM: Visualized upper sacrum intact. VISUALIZED UPPER ABDOMEN: No significant abnormality. OTHER: No other significant findings. IMPRESSION: Severe lumbar degenerative changes with up to moderate to severe spinalcanal stenosis at L2-L3 and L3-L4 and severe neural foraminal stenosisbilaterally at L3-L4 and L4-L5 and on the right at L5-S1 with impingement of the corresponding exiting nerve roots. No significant degenerative progression compared to 06/24/2022. THIS IS AN ELECTRONICALLY VERIFIED FINAL REPORT 06/03/2023 2:34 PM - Electronically signed by Alexey Wagner M.D. AG: ERIC Report ID: [id number] Reading Location: [id number] Lalito England MD IM MRI PROCEDURES Final Result documented in this encounter Visit Diagnoses Diagnosis Spinal stenosis of lumbar region with neurogenic claudication documented in this encounter Care Teams Procurement Professional Logistics Relationship Specialty Start Date End Date [place] [address] PCP - General 08/03/19 documented as of this encounter
--- OUTSIDE RECORDS SUMMARY | 2024-07-11 22:36 | XMS_ITS | Encounter Summary ---
Author Organization [facility] Healthcare Address [address] [place] [address] Care Team Providers Care Travel Registered Nurse Oncology Name Role Phone Lalito England MD Primary Care Provider [phone] Reason for Referral * Consultation (Routine) - Closed Specialty Diagnoses / Procedures Referred By Contac t Referred To Contact Neurosurgery Diagnoses Spinal stenosis of lumbar region with neurogenic claudication Lalito England MD [address] [place] [address] Phone: tel: [place]: [place] [address] [place] [address] Phone: tel: fax: Referral ID Status Reason Start Date Expiration Date V isits Requested Visits Authorized [id number] Closed Specialty Services Required 07/09/2023 08/07/2024 1 1 Question Answer Please select the performing region: External Order [171] To provider: GERA YEN [[id number]] # of visits: 1 Comments MRI done 06/03/23 ACTIVITIES COACH Reason for Visit * Reason Onset Date Comments Referral Request 07/09/2023 Encounter Details Date Type Department Care Team (Late st Contact Info) Description 07/09/2023 Telephone [facility] [address] [facility] [place] [address] Lalito England MD [address] [place] [address] Referral Request (/) Social History Tobacco Use [...] on file 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 Yen- neurosurgery Dr. Evans- podiatry Received confirmation on both; patient aware ACTIVITIES COACH * Telephone Encounter - Citlaly Edwards - 07/09/2023 12:10 PM CST Referral Provider Name (if patient is seeing a nurse practitioner or physician costumer assistant, list the ADVERTISEMENT COMPOSITOR/PA, but also their collaborating doctor): Dr Gera Yen Specialty: neuro surgeon Address: [address] [facility], Zip: [facility] [address] Diagnosis Code/Symptom/Reason Patient is being seen: back, need second opinion Date of Appointment: Jul 17 2023 NPI#: [id number] Tax ID#: [id number] Is insurance in chart up to date? [employer] Additional Comments: none Does message need to be routed? Yes-Action Needed ACTIVITIES COACH * Telephone Encounter - Citlaly Edwards - 07/09/2023 12:06 PM CST Referral Provider Name (if patient is seeing a nurse practitioner or physician costumer assistant, list the ADVERTISEMENT COMPOSITOR/PA, but also their collaborating doctor): Dr Autumn Evans Specialty: podiatry Address: [address] [place] [address] [place] [address], Zip: [facility] [address] Diagnosis Code/Symptom/Reason Patient is being seen: annual check up Date of Appointment: 07 09 23 NPI#: [id number] Tax ID#: [id number] Is insurance in chart up to date? [employer] Additional Comments: Patient's appt is tomorrow and needs to be sent as high Does message need to be routed? Yes-Action Needed ACTIVITIES COACH documented in this encounter Plan of Treatment Scheduled Referrals Name Type Priority Associated Diagnoses Orde r Schedule Ambulatory referral to Neurosurgery Outpatient Referral Routine Spinal stenosis of lumbar region with neurogenic claudication Expected: 07/23/2023 (Approximate), Expires: 07/09/2024 documented as of this encounter Visit Diagnoses Diagnosis Spinal stenosis of lumbar region with neurogenic claudication- Primary documented in this encounter Care Teams Travel Registered Nurse Oncology Relationship Specialty Start Date End Date Lalito England MD [address] [place] [address] PCP - General 08/03/19 documented as of this encounter
--- OUTSIDE RECORDS SUMMARY | 2024-07-11 22:36 | XMS_ITS | Encounter Summary ---
Author Organization [facility] Healthcare Address [address] [place] [address] Care Team Providers Care Superintendent Meters Name Role Phone aLlito England MD Primary Care Provider [phone] Reason for Visit * Reason Onset Date Comments Medical Question/Miscellaneous 10/29/2023 Encounter Details Date Type Department Care Team (Late st Contact Info) Description 10/29/2023 Telephone [facility] [address] [facility] [place] [address] Lalito England MD [address] [facility] [place] [address] Medical Question/Miscellaneous Social History Tobacco [...] in a prison (including now)? No 07/16/2022 Personal Safety Answer Date Recorded Have you ever been in or are you currently in a harmful physical or emotional relationship or is someone making you feel afraid or unsafe? 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 Thanks * Telephone Encounter - Mandie Ignacio - 10/29/2023 1:39 PM CDT Medical Question/Miscellaneous Caller???s Concern: Patient called stating that she is having neck surgery on 11/24/23. Dr Castillo want patient to reach out to her PCP to ask if it ok to stop taking her elquis and Asprin for 1 week before an 2 weeks after surgery ? Dr Egnland has to give the patient the ok to stop taking the medications before they can do her surgery . Does message need to be routed? Yes-Action Needed documented in this encounter Plan of Treatment Not on file documented as of this encounter Visit Diagnoses Not on filedocumented in this encounter Care Teams Superintendent Meters Relationship Specialty Start Date End Date Lalito England MD [address] [place] [address] PCP - General 08/03/19 documented as of this encounter
--- OUTSIDE RECORDS SUMMARY | 2024-07-11 22:36 | XMS_ITS | Encounter Summary ---
Author Organization [facility] Address [address] [place] [address] Phone Care Team Providers Care Machine Operator Replanter Name Role Phone Lalito England MD Primary Care Provider [phone] Reason for Referral * MRI/CAT/PET Scan (Routine) - Closed Specialty Diagnoses / Procedures Referred By Giuliana boone Referred To Contact Radiology Diagnoses Degenerative cervical spinal stenosis Cervical myelopathy (HCC) Procedures CT Cervical Spine WO Contrast Lizbet Stewart NP [address] [place] [address] Phone: tel: fax: [place] [address] [place] [address] Referral ID Status Reason Start Date Expiration Date Visits Re quested Visits Authorized [id number] Closed 09/22/2023 10/21/2024 1 1 Encounter Details Date Type Department Care Team (Late st Contact Info) Description 09/22/2023 Orders Only [facility] Neurosurgery [address] [facility] [address] [place] [id number] Lizbet Stewart NP [address] [place] [address] Degenerative cervical spinal stenosis (Primary Dx); Cervical myelopathy (HCC) Social History Tobacco Use Types Packs/Day [...] on file 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 ??Persistent severe central canal stenosis at this point of known spinal cord compression demonstrated on 07/29/2023 MRI. Severe bilateral neural foraminal stenosis results from loss of height and subluxation. Electronically signed by: MD Diandra Rasheed 10/08/2023 1:01 PM CDT EXAMINATION: CT of the cervical spine without contrast HISTORY: Cervical myelopathy, operative planning. TECHNIQUE: CT of the cervical spine was performed according to the standard protocol without intravenous contrast. COMPARISON: 07/29/2023 MRI FINDINGS: No acute fracture. Unchanged 5 mm of C7 on T1 anterior subluxation with rmxy-dj-wyqr abutment of the endplates, sclerosis and severe bilateral facet arthropathy inferior to a C3-C7 solid non-instrumented interbody fusion construct. ??Persistent severe central canal stenosis at this point of known spinal cord compression demonstrated on 07/29/2023 MRI. ??Severe bilateral neural foraminal stenosis results from loss of height and subluxation. Alignment is otherwise normal. ??Moderate atlantoaxial degenerative joint disease. ??Craniocervical junction is otherwise normal. Visualized neck soft tissues and intracranial contents are normal. Visualized lung apices are unremarkable. Procedure Note Quang Collado MD PhD - 10/08/2023 EXAMINATION: CT of the cervical spine without contrast HISTORY: Cervical myelopathy, operative planning. TECHNIQUE: CT of the cervical spine was performed according to the standard protocol without intravenous contrast. COMPARISON: 07/29/2023 MRI FINDINGS: No acute fracture. Unchanged 5 mm of C7 on T1 anterior subluxation with hulx-lw-deyv abutment of the endplates, sclerosis and severe bilateral facet arthropathy inferior to a C3-C7 solid non-instrumented interbody fusion construct. Persistent severe central canal stenosis at this point of known spinal cord compression demonstrated on 07/29/2023 MRI. Severe bilateral neural foraminal stenosis results from loss of height and subluxation. Alignment is otherwise normal. Moderate atlantoaxial degenerative joint disease. Craniocervical junction is otherwise normal. Visualized neck soft tissues and intracranial contents are normal. Visualized lung apices are unremarkable. IMPRESSION: Unchanged 5 mm of C7 on T1 anterior subluxation with jmec-nq-rzzz abutment of the endplates, sclerosis and severe bilateral facet arthropathy inferior to a C3-C7 solid non-instrumented interbody fusion construct. Persistent severe central canal stenosis at this point of known spinal cord compression demonstrated on 07/29/2023 MRI. Severe bilateral neural foraminal stenosis results from loss of height and subluxation. Electronically signed by: Quang Collado MD Lizbet Stewart LAWYER PROBATE IMG CT PROCEDURES Final Re sult documented in this encounter Visit Diagnoses Diagnosis Degenerative cervical spinal stenosis- Primary Spinal stenosis in cervical region Cervical myelopathy (HCC) Cervical spondylosis with myelopathy Degenerative cervical spinal stenosis Spinal stenosis in cervical region Cervical myelopathy (HCC) Cervical spondylosis with myelopathy documented in this encounter Care Teams Machine Operator Replanter Relationship Specialty Start Date End Date Lalito England MD [address] [place] [address] PCP - General 08/03/19 documented as of this encounter
--- OUTSIDE RECORDS SUMMARY | 2024-07-11 22:36 | XMS_ITS | Encounter Summary ---
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
--- OUTSIDE RECORDS SUMMARY | 2024-07-11 22:36 | XMS_ITS | Encounter Summary ---
Author Organization [facility] Healthcare Address [address] [place] [address] Care Team Providers Care Customer Care Associate Name Role Phone Lalito England MD Primary Care Provider [phone] [phone] Reason for Visit * Reason Comments Follow-up 1 mo follow up. Encounter Details Date Type Department Care Team (Late st Contact Info) Description 09/22/2023 2:15 PM CDT Office Visit [facility] [address] [place] [address] Lalito England MD [address] [place] [address] Degenerative cervical spinal stenosis (Primary Dx); Type 2 diabetes mellitus with diabetic neuropathy, with long-term current use of insulin ([facility]) (HCC); Type 2 diabetes mellitus with stage 3b chronic kidney disease, with long-term current use of insulin ([facility]); Chronic renal failure, stage 3b ([facility]); Hypertension associated with diabetes ([facility]); Type 2 diabetes mellitus with hyperlipidemia ([facility]); BMI 39.0-39.9,adult; Severe obesity (BMI 35.0-39.9) with comorbidity ([facility]); Chronic anticoagulation Social History Tobacco Use Types Packs/Day Years [...] on file 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 Gender Identity Not on file Sexual Orientation Not on file documented as of this encounter Last Filed Vital Signs Vital Sign Reading Time Taken Comments Blood Pressure 124/64 09/22/2023 2:32 PM CDT Pulse 83 09/22/2023 2:32 PM CDT Temperature - - Respiratory Rate 18 09/22/2023 2:32 PM CDT Oxygen Saturation 97% 09/22/2023 2:32 PM CDT Inhaled Oxygen Concentration - - Weight 108.9 kg (240 lb) 09/22/2023 2:32 PM CDT Height 165.1 cm (5' 5 ) 09/22/2023 2:32 PM CDT Body Mass Index 39.94 09/22/2023 2:32 PM CDT documented in this encounter Progress Notes * Lalito England MD - 09/22/2023 2:15 PM CDT Images from the original note were not included. [facility] Criss Ly Chief Complaint. Chief Complaint Patient presents with Follow-up 1 mo follow up. HPI. Patient is a 73 y.o. female Ms. Ly returns to clinic for f/u. She has returned to her home. Glad to be there but still dealing with some mobility issues. Patient also with neck pain and numbness/paresthesia in the upper extremities. Has been evalauted by neurosurgery and recommending operative intervention if able to lower A1c to acceptable level. Patient is motivated and working on glycecmi cocntrol targets and will follow response. Tolerating insulin injections and semglutide. No sig gi distress. Diabetes She presents for her follow-up diabetic visit. She has type 2 diabetes mellitus. Her disease coursehas been stable. Pertinent negatives for hypoglycemia include no dizziness, headaches or tremors. Associated symptoms include fatigue, foot paresthesias and weakness. Pertinent negatives for diabetesinclude no blurred vision, no chest pain, no foot ulcerations and no visual change. Symptoms are stable. Risk factors for coronary artery disease include dyslipidemia, hypertension, obesity, sedentary lifestyle, stress and post-menopausal. Current diabetic treatment includes insulin injections. Sheis compliant with treatment some of the time. Her home blood glucose trend is decreasing steadily. Eye exam is current. Past Medical History: Diagnosis Date Asthma Benign hypertension with CKD (chronic kidney disease) stage III (HCC) Gastroesophageal reflux disease GERD HX OTHER MEDICAL PMO HX OTHER MEDICAL [facility]POR[facility] HX OTHER MEDICAL [facility] OA HX OTHER [...] OTHER MEDICAL Cervical disc surg. 2007.; Comments: [facility] 07/25/2015 - HX OTHER MEDICAL Breast reduction 2008.; Comments: [facility] 07/25/2015 - HX OTHER MEDICAL left hip and leg surgery HX OTHER MEDICAL conversion of previous hip arthroplasty left hip; Comments: [facility] TCU unit 02/06 - 02/17/16 [...] HIP ARTHROPLASTY Left 02/05/2016 Dr. David Sykes, [facility] - conversion of previous hip arthroplasty left hip: Conversion of Arthroplasty left hip TOTAL KNEE ARTHROPLASTY Left 09/27/2005 Left TKA - Dr. Cole Beckham TOTAL KNEE ARTHROPLASTY Right 08/27/2001 Right TKA - Dr. Light [facility] MEDICATIONS : albuterol HFA (PROVENTIL HFA,VENTOLIN HFA,PROAIR HFA) 90 mcg/actuation inhaler alendronate (FOSAMAX) 70 mg tablet amoxicillin 500 mg capsule apixaban (ELIQUIS) 5 mg [...] pen for injection lancets (MICROLET LANCET) misc melatonin 3 mg tablet,disintegrating montelukast (SINGULAIR) 10 mg tablet naloxone (NARCAN) 4 mg/actuation spray,non-aerosol omeprazole (PriLOSEC) 20 mg capsule pen needle, diabetic (BD Ultra-Fine Mini Pen Needle) 31 gauge x 3/16 needle polyethylene glycol (MIRALAX) 17 gram/dose powder semaglutide (Ozempic) 2 mg/dose (8 mg/3 mL) pen injector injection simvastatin (ZOCOR) 40 mg tablet No Known Allergies Social History Tobacco Use Smoking status: Never Smokeless tobacco: Never Substance and Sexual Activity Drug use: Never Sexual activity: Defer Alcohol Use: Not At Risk (09/16/2023) AUDIT-C Frequency of Alcohol Consumption: Never Average [...] Constitutional: Positive for fatigue. Negative for activity change and fever. HENT: Negative for postnasal drip and rhinorrhea. Eyes: Negative for blurred vision. Respiratory: Negative for chest tightness, shortness of breath and wheezing. Cardiovascular: Negative for chest pain and leg swelling. Gastrointestinal: Negative for abdominal pain, blood in stool, constipation, diarrhea, nausea and vomiting. Genitourinary: Negative for dysuria and hematuria. Musculoskeletal: Negative for back pain, myalgias and neck pain. Skin: Positive for wound. Healing wounds over the gluteal cleft Neurological: Positive for weakness. Negative for dizziness, tremors, light- headedness and headaches. Psychiatric/Behavioral: Negative for sleep disturbance and suicidal ideas. BP 124/64 (BP Location: Left arm, Patient Position: Sitting) Pulse 83 Resp 18 Ht 165.1 cm (5'5 ) Wt 108.9 kg (240 lb) SpO2 97% BMI 39.94 kg/m?? Physical Exam: Physical Exam Vitals reviewed. [...] edema. Lymphadenopathy: Cervical: No cervical adenopathy. Skin: Findings: Lesion and rash present. No erythema. Neurological: Mental Status: She is alert and oriented to person, place, and time. Motor: Weakness present. Gait: Gait abnormal. Psychiatric: Thought Content: Thought content normal. Assessment & Plan: Diagnoses and all orders for this visit: Degenerative cervical spinal stenosis (Primary) Assessment & Plan: Patient evaluated by Neurosurgery in for symptoms of cervical myelopathy recommending intervention.However this is predicated on lowering of A1c. We will continue follow-up with team. Type 2 diabetes mellitus with diabetic neuropathy, with long-term current use of insulin ([facility]) ([facility]) Assessment & Plan: Continues on gabapentin and chronic opioid therapy. Patient denies any analgesic complications compliant with medication regimen. Type 2 diabetes mellitus with stage 3b chronic kidney disease, with long-term current use of insulin ([facility]) Assessment & Plan: Stable at present time. No evidence of uremia. Patient counseled on avoidance of NSAIDs and nephrotoxic medications. Reviewed importance of aggressive glycemic and blood pressure control. Chronic renal failure, stage 3b ([facility]) Hypertension associated with diabetes ([facility]) Assessment & Plan: Reviewed blood pressure regimen and we will continue to follow no significant orthostasis at the present time. Reviewed importance of hydration. Type 2 diabetes mellitus with hyperlipidemia ([facility]) Assessment & Plan: Patient continues on simvastatin for secondary prevention in coronary artery disease equivalent patient. BMI 39.0-39.9,adult Assessment & Plan: Reviewed import of weight loss continues on semaglutide. Reviewed healthy food choices during period of limited aerobic activity. Severe obesity (BMI 35.0-39.9) with comorbidity ([facility]) Chronic anticoagulation Assessment & Plan: Patient continues on Eliquis for chronic anticoagulation. Patient with history of recurrent DVT. Patient denies any active bleeding or epistaxis. BMI Follow-up includes: nutrition counseling and exercise counseling. Body mass index is 39.94 kg/m??. Lalito England MD documented in this encounter Miscellaneous Notes * Assessment & Plan Note - Lalito England MD - 10/05/2023 7:04 AM CDT Associated Problem(s): Chronic anticoagulation Patient continues on Eliquis for chronic anticoagulation. Patient with history of recurrent DVT. Patient denies any active bleeding or epistaxis. * Assessment & Plan Note - Lalito England MD - 10/05/2023 7:04 AM CDT Associated Problem(s): BMI 39.0-39.9,adult Reviewed import of weight loss continues on semaglutide. Reviewed healthy food choices during period of limited aerobic activity. * Assessment & Plan Note - Lalito England MD - 10/05/2023 7:03 AM CDT Associated Problem(s): Type 2 diabetes mellitus with hyperlipidemia (HCC) Patient continues on simvastatin for secondary prevention in coronary artery disease equivalent patient. * Assessment & Plan Note - Lalito England MD - 10/05/2023 7:03 AM CDT Associated Problem(s): Hypertension associated with diabetes (HCC) Reviewed blood pressure regimen and we will continue to follow no significant orthostasis at the present time. Reviewed importance of hydration. * Assessment & Plan Note - Lalito England MD - 10/05/2023 7:03 AM CDT Associated Problem(s): Type 2 diabetes mellitus with stage 3 chronic kidney disease, with long-termcurrent use of insulin (HCC) Stable at present time. No evidence of uremia. Patient counseled on avoidance of NSAIDs and nephrotoxic medications. Reviewed importance of aggressive glycemic and blood pressure control. * Assessment & Plan Note - Lalito England MD - 10/05/2023 7:02 AM CDT Associated Problem(s): Type 2 diabetes mellitus with diabetic neuropathy, unspecified (HCC) Continues on gabapentin and chronic opioid therapy. Patient denies any analgesic complications compliant with medication regimen. * Assessment & Plan Note - Lalito England MD - 10/05/2023 7:02 AM CDT Associated Problem(s): Degenerative cervical spinal stenosis Patient evaluated by Neurosurgery in for symptoms of cervical myelopathy recommending intervention.However this is predicated on lowering of A1c. We will continue follow-up with team. documented in this encounter Plan of Treatment Not on file documented as of this encounter Visit Diagnoses Diagnosis Degenerative cervical spinal stenosis- Primary Spinal stenosis in cervical region Type 2 diabetes mellitus with diabetic neuropathy, with long-term current use of insulin (HCC) Type 2 diabetes mellitus with stage 3b chronic kidney disease, with long-term current use of insulin (HCC) Chronic renal failure, stage 3b (HCC) Hypertension associated with diabetes (HCC) Unspecified essential hypertension Type 2 diabetes mellitus with hyperlipidemia (HCC) BMI 39.0-39.9,adult Severe obesity (BMI 35.0-39.9) with comorbidity (HCC) Chronic anticoagulation Encounter for long-term (current) use of anticoagulants documented in this encounter Care Teams Customer Care Associate Relationship Specialty Start Date End Date [place] [address] PCP - General 08/03/19 documented as of this encounter
--- OUTSIDE RECORDS SUMMARY | 2024-07-11 22:36 | XMS_ITS | Encounter Summary ---
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 Gender Identity Not on file Sexual Orientation Not on file documented as of this encounter Plan of Treatment Not on file documented as of this encounter Procedures Procedure Name Priority Date/Time Associated Diagnosis Comments URINALYSIS AND REFLEX TO MICROSCOPIC AND CULTURE Routine 11/14/2023 12:47 PM CDT Cervicalgia EGFR Routine 11/14/2023 12:26 PM CDT Cervicalgia DIFFERENTIAL AUTO Routine 11/14/2023 12: 26 PM CDT Cervicalgia CBC WITH AUTO DIFFERENTIAL Routine 11/14/2023 12:26 PM CDT Cervicalgia VITAMIN D 25 HYDROXY Routine 11/14/2023 12:26 PM CDT Cervicalgia APTT Routine 11/14/2023 12:26 PM CDT Cervicalgia PROTIME-INR Routine 11/14/2023 12:26 PM CDT Cervicalgia HEMOGLOBIN A1C Routine 11/14/2023 12:26 PM CDT Cervicalgia BASIC METABOLIC PANEL Routine 11/14/2023 12:26 PM CDT Cervicalgia documented in this encounter Results * (ABNORMAL) Urinalysis reflex to microscopic and culture Urine, clean voided (11/14/2023 12:47 PM CDT) Color, ur Straw Yellow Clarity, ur Clear Clear [facility] Specific gravity, ur 1.009 1.003 - 1.030 [facility] pH, urine 6.5 [facility] Comment: Interpretive Data ? Urine pH is affected by diet, medications, systemic acid-base disturbances, and renal tubular function. ??pH may affect urinary stone formation. ??For example, urine pH below 6.0 may help reduce the tendency for calcium phosphate stones and pH greater than 6.0 may reduce the tendency for uric acid stone formation. Source: [facility] Current Interpretive Data was last revised on 2017 Protein, ur ql Negative Negative [facility] Glucose, ur ql Trace(A) Negative [facility] Ketones, ur Negative Negative [facility] Bilirubin, ur Negative Negative [facility] Blood, ur Negative Negative [facility] Urobilinogen, ur <2.0 <2.0 mg/dL [facility] Nitrite, ur Negative Negative [facility] Leukocyte esterase, ur Negative Negative [facility] UA reflex comment Reflex conditions for microscopic UA and culture not met. [facility] Urine, clean voided 11/14/2023 12:47 PM CDT 11/14/2023 12:49 PM CDT us Brennan Castillo MD LAB MICROBIOLOGY - GENERAL KRISTIN WILLSON Final Result [facility] [address] [facility]. Department [place] [address] * (ABNORMAL) eGFR (11/14/2023 12:26 PM CDT) eGFR 38(L) >=60 mL/min/1. 73 [...] interpretive data was last reviewed 2021. Blood 11/14/2023 12:2 6 PM CDT 11/14/2023 12:48 PM CDT us Brennan Castillo MD LAB BLOOD ORDERABLES Final Resu lt [facility] [address] [facility]. Department [place] [address] * (ABNORMAL) Differential, auto (11/14/2023 12:26 PM CDT) Neutrophil abs 6.4 1.5 - 6.5 K/cumm Imm gran abs 0.0 0.0 - 0.1 K/cumm [facility] Lymphocyte abs 1.8 0.8 - 3.3 K/cumm [facility] Monocyte abs 0.9(H) 0.2 - 0.8 K/cumm [facility] Eosinophil abs 0.2 0.0 - 0.5 K/cumm [facility] Basophil abs 0.1 0.0 - 0.1 K/cumm [facility] Neutrophil pct 68.8 % [facility] Comment: Interpretive Data Percent cell count reference ranges are not reported, since discordance with absolute values may lead to misinterpretation of CBC data. Current Interpretive Data was last revised on 2017. Imm gran pct 0.4 % [facility] Comment: Interpretive Data Percent cell count reference ranges are not reported, since discordance with absolute values may lead to misinterpretation of CBC data. Current Interpretive Data was last revised on 2017. Lymphocyte pct 19.2 % [facility] Comment: Interpretive Data Percent cell count reference ranges are not reported, since discordance with absolute values may lead to misinterpretation of CBC data. Current Interpretive Data was last revised on 2017. Monocyte pct 9.1 % [facility] Comment: Interpretive Data Percent cell count reference ranges are not reported, since discordance with absolute values may lead to misinterpretation of CBC data. Current Interpretive Data was last revised on 2017. Eosinophil pct 1.9 % [facility] Comment: Interpretive Data Percent cell count reference ranges are not reported, since discordance with absolute values may lead to misinterpretation of CBC data. Current Interpretive Data was last revised on 2017. Basophil pct 0.6 % [facility] Comment: Interpretive Data Percent cell count reference ranges are not reported, since discordance with absolute values may lead to misinterpretation of CBC data. Current Interpretive Data was last revised on 2017. Blood 11/14/2023 12:2 6 PM CDT 11/14/2023 12:48 PM CDT us Brennan Castillo MD LAB BLOOD ORDERABLES Final Resu lt [facility] [address] [facility]. Department [place] [address] * (ABNORMAL) Hemoglobin A1c (11/14/2023 12:26 PM CDT) Hgb A1C 7.6(H) 4.0 - 5.6 % Estimated Average Glucose 171 mg/dL [facility] Comment: The ADA recommends reporting an estimated Average Glucose (eAG) with all Hemoglobin A1c results using the equation derived from a study of 507 normal and diabetic adults. ??Minority populations were underrepresented and children were not included. ?? (Diabetes Care 31:5238-0093, 2008). ??The eAG is not equivalent to a fasting glucose. Blood 11/14/2023 12:2 6 PM CDT 11/14/2023 12:48 PM CDT us Brennan Castillo MD LAB BLOOD ORDERABLES Final Resu lt [facility] [address] [facility]. Department [place] [address] * (ABNORMAL) CBC with auto differential (11/14/2023 12:26 PM CDT) [facility] WBC 9.3 3.8 - 9.9 K/cumm Hgb 10.2(L) 11.9 - 15.5 g/dL [facility] Hct 32.5(L) 35.6 - 45.5 % [facility] Plt 219 150 - 400 K/cumm [facility] MPV 10.2 9.1 - 12.3 fL [facility] RBC 3.93 3.90 - 5.20 M/cumm [facility] MCV 82.7 81.3 - 96.4 fL [facility] MCH 26.0(L) 27.1 - 33.3 pg [facility] MCHC 31.4(L) 32.3 - 35.7 g/dL [facility] RDW CV 15.8(H) 11.1 - 14.9 % [facility] RDW SD 47.5 35.7 - 48.1 fL [facility] NRBC abs 0.00 0.00 - 0.01 K/cumm [facility] Blood 11/14/2023 12:2 6 PM CDT 11/14/2023 12:48 PM CDT Brennan Castillo MD LAB BLOOD ORDERABLES Final Resu lt Performing Organization Address [facility] Co de Phone Number [facility] [address] [facility] [place] [address] * (ABNORMAL) aPTT (11/14/2023 12:26 PM CDT) aPTT 78(H) 28 - 38 sec Comment: Interpretive Data Heparin therapeutic range: 66.0 - 100.0 seconds. Range based on correlation with therapeutic heparin activity range of 0.3 - 0.7 Units/mL. Current interpretive data was last revised on 2023. Blood 11/14/2023 12:2 6 PM CDT 11/14/2023 12:48 PM CDT Brennan Castillo MD LAB BLOOD ORDERABLES Final Resu lt Performing Organization Address [facility] de Phone Number [facility] [address] [facility] [place] [address] * (ABNORMAL) Protime-INR (11/14/2023 12:26 PM CDT) PT 19.4(H) 10.3 - 13.7 sec INR 1.70(H) 0.90 - 1.20 [facility] Comment: Interpretive data Oral anticoagulant therapeutic ranges: Venous thromboembolism prophylaxis or treatment: 2.0-3.0 CARDIOLOGY Standard range: 2.0-3.0 High-intensity range: 2.5-3.5 Refer to indication-specific guidelines for appropriate target ranges for prosthetic heart valve replacement. Current interpretive data was last revised on 2019. Blood 11/14/2023 12:2 6 PM CDT 11/14/2023 12:48 PM CDT Brennan Castillo MD LAB BLOOD ORDERABLES Final Resu lt Performing Organization Address [facility] Co de Phone Number [facility] [address] [facility] Department [place] [address] * Vitamin D 25 hydroxy (11/14/2023 12:26 PM CDT) Pathologist [facility] Vitamin D 25-OH 31 30 - 80 ng/mL Blood 11/14/2023 12:2 6 PM CDT 11/14/2023 12:48 PM CDT Brennan Castillo MD LAB BLOOD ORDERABLES Final Resu lt [facility] [address] [facility] [place] [address] * (ABNORMAL) Basic metabolic panel (11/14/2023 12:26 PM CDT) Pathologist [facility] Sodium 140 135 - 145 mmol/L Potassium, pl 3.8 3.3 - 4.9 mmol/L [facility] Chloride 100 97 - 110 mmol/L [facility] CO2 29 22 - 32 mmol/L [facility] Anion gap 11 2 - 15 mmol/L [facility] BUN 18 6 - 25 mg/dL [facility] Creatinine 1.46(H) 0.60 - 1.10 mg/dL [facility] Glucose 150 70 - 199 mg/dL [facility] Comment: Interpretive Data Fasting glucose >/= 126 [...] interpretive data was last revised 2022. Calcium 10.0 8.5 - 10.3 mg/dL [facility] Blood 11/14/2023 12:2 6 PM CDT 11/14/2023 12:48 PM CDT us Brennan Castillo MD LAB BLOOD ORDERABLES Final Resu lt [facility] [address] [facility]. Department [place] [address] documented in this encounter Visit Diagnoses Diagnosis Cervicalgia documented in this encounter Care Teams Director Public Relationship Specialty Start Date End [place] [address] PCP - General 08/03/19 documented as of this encounter
--- OUTSIDE RECORDS SUMMARY | 2024-07-11 22:36 | XMS_ITS | Encounter Summary ---
Author Organization [facility] Address [address] [place] [address] Phone Care Team Providers Care Sole Conditioner Name Role Phone Lalito England MD Primary Care Provider [phone] [phone] Encounter Details Date Type Department Care Team (Late st Contact Info) Description 11/10/2023 Telephone [facility] Surgery [address] [place] [address] [address] [place] [address] Bran Vora Social History Tobacco Use Types Packs/Day Years [...] on file 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 WLE MELANOMA ON RIGHT SHOULDWITH ADJACENT TISSUE TRANSFER Please provide hold instructions for the patients : Elequis Please send clearance letter to Plastic and Reconstructive Surgery @ [phone] Thank you, Dragan Care Team documented in this encounter Plan of Treatment Not on file documented as of this encounter Visit Diagnoses Not on filedocumented in this encounter Care Teams Sole Conditioner Relationship Specialty Start Date End Date Lalito England MD [address] [place] [address] PCP - General 08/03/19 documented as of this encounter
--- OUTSIDE RECORDS SUMMARY | 2024-07-11 22:36 | XMS_ITS | Encounter Summary ---
Author Organization [facility] Address [address] [facility] [address] [place] [address] Phone Care Team Providers Care Precision Agronomist Name Role Phone Lalito England MD Primary Care Provider [phone] [phone] Reason for Visit * Reason Onset Date Comments Scheduling Appointments 10/07/2023 Encounter Details Date Type Department Care Team (Late st Contact Info) Description 10/07/2023 Telephone [facility] [address] [facility] Medical Office Building [address] [place] [address] Brennan Castillo MD [address] [place] [address] Scheduling Appointments Social History Tobacco Use Types Packs/Day Years [...] on file 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 Surgery: C6-T2 Posterior Spinal Fusion with a C7-T1 decompression and bilateral foraminotomies *Will need PCP clearance for the pt to hold Eliquis 1 wk prior to surgery and 2 wks post-op* Pt would like to be notified of their scheduled appointments via During office visit (in-person) documented in this encounter Plan of Treatment Not on file documented as of this encounter Visit Diagnoses Not on filedocumented in this encounter Care Teams Precision Agronomist Relationship Specialty Start Date End [place] [address] PCP - General 08/03/19 documented as of this encounter
--- OUTSIDE RECORDS SUMMARY | 2024-07-11 22:36 | XMS_ITS | Encounter Summary ---
Author Organization [facility] Address [address] [place] [address] Phone Care Team Providers Care Supervisor Gelatin Plant Name Role Phone Lalito England MD Primary Care Provider [phone] [phone] Encounter Details Date Type Department Care Team (Late st Contact Info) Description 09/10/2023 Orders Only [facility] Neurosurgery [address] [facility] Advanced Medicine 6th [place] [address] [place] [address] Michael Harris MD [address] [place] [address] Degenerative cervical spinal stenosis (Primary [...] in a usp (including now)? 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 Changes of C3-C7 anterior cervical discectomy with mature bony fusion across these levels. 2. Multilevel bilateral osseous neuroforaminal narrowing. Dictated by: Clayton Lagos MD The radiology attending physician has personally reviewed this study, and had reviewed and/or edited this written report and agrees with it. Electronically signed by: Jim Elizabeth MD Narrative 09/16/2023 10:14 AM WATER TREATMENT PLANT REPAIRER EXAMINATION: XR SPINE CERVICAL COMPLETE 4 OR 5 VW HISTORY: ??Spinal stenosis FINDINGS: 4 radiographs of the cervical [...] bilateral osseous neuroforaminal narrowing. No acute fracture. Procedure Note Jim Elizabeth MD - 09/16/2023 EXAMINATION: XR SPINE CERVICAL COMPLETE 4 OR [...] bilateral osseous neuroforaminal narrowing. No acute fracture. IMPRESSION: 1. Changes of C3-C7 anterior cervical discectomy with mature bony fusion across these levels. 2. Multilevel bilateral osseous neuroforaminal narrowing. Dictated by: Clayton Lagos MD The radiology attending physician has personally reviewed this study, and had reviewed and/or edited this written report and agrees with it. Electronically signed by: Jim Elizabeth MD us Lizbet Stewart COMPENSATION AND BENEFITS ADVISOR IMG XR PROCEDURES Final Re sult documented in this encounter Visit Diagnoses Diagnosis Degenerative cervical spinal stenosis- Primary Spinal stenosis in cervical region Degenerative cervical spinal stenosis Spinal stenosis in cervical region documented in this encounter Care Teams Supervisor Gelatin Plant Relationship Specialty Start Date End Date [place] [address] PCP - General 08/03/19 documented as of this encounter
--- OUTSIDE RECORDS SUMMARY | 2024-07-11 22:36 | XMS_ITS | Encounter Summary ---
Author Organization [facility] Healthcare Address [address] [place] [address] Care Team Providers Care Vehicle Body Sander Name Role Phone Lalito England MD Primary Care Provider [phone] [phone] Reason for Referral * Consultation (Routine) - Authorized Specialty Diagnoses / Procedures Referred By Contac t Referred To Contact Neurosurgery Diagnoses Degenerative cervical spinal stenosis Lalito England MD [address] [place] [address] Phone: tel: fax: Brennan Rey MD [address] [facility] [address] [place] [address] Phone: tel: fax: Referral ID Status Reason Start Date Expiration Date Visits Requested Visits Authorized [id number] Authorized Specialty Services Required 08/14/2023 09/12/2024 12 12 Question Answer Please select the performing region: [facility] (All Locations) [167] To provider: BRENNAN REY [[id number]] # of visits: 1 GER AEROSPACE Reason for Visit * Reason Onset Date Comments Referral Request 08/14/2023 Encounter Details Date Type Department Care Team (Late st Contact Info) Description 08/14/2023 Telephone [facility] [address] [facility] [place] [address] Lalito England MD [address] [place] [address] Referral Request Social History Tobacco Use Types [...] file 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 GER AEROSPACE * Telephone Encounter - AlexanderAniyah - 08/14/2023 1:36 PM CST Referral Provider Name (if patient is seeing a nurse practitioner or physician greenhouse assistant, list the FITTER TACKER/PA, but also their collaborating doctor): Brennan Rey M.D Specialty: Neurological Surgery Address: [address], Zip: [place] [address] Diagnosis Code/Symptom/Reason Patient is being seen: Wants a second opinion on Spinal stenosis diagnosis Date of Appointment: need referral sent first NPI#: [id number] Tax ID#: not available Is insurance in chart up to date? yes Additional Comments: - Does message need to be routed? Yes-Action Needed GER AEROSPACE documented in this encounter Plan of Treatment Scheduled Referrals Name Type Priority Associated Diagnoses Order Schedule Ambulatory referral to Neurosurgery Outpatient Referral Routine Degenerative cervical spinal stenosis Expected: 08/28/2023 (Approximate), Expires: 08/14/2024 documented as of this encounter Visit Diagnoses Diagnosis Degenerative cervical spinal stenosis- Primary Spinal stenosis in cervical region documented in this encounter Care Teams Vehicle Body Sander Relationship Specialty Start Date End [place] [address] PCP - General 08/03/19 documented as of this encounter
--- OUTSIDE RECORDS SUMMARY | 2024-07-11 22:36 | XMS_ITS | Encounter Summary ---
Author Organization [facility] Healthcare Address [address] [place] [address] Care Team Providers Care Revenue Enforcement Collection Agent Name Role Phone Lalito England MD Primary Care Provider [phone] [phone] Reason for Referral * MRI/CAT/PET Scan (Routine) - Closed Specialty Diagnoses / Procedures Referred By Contac t Referred To Contact Radiology Diagnoses Degenerative cervical spinal stenosis Procedures MRI [place] [address] [place] [address] Phone: tel: fax: [address] [address] Referral ID Status Reason Start Date Expiration Date Visits Re quested Visits Authorized [id number] Closed 07/29/2023 10/27/2023 1 1 UNITY ENGAGEMENT SPECIALIST Encounter Details Date Type Department Care Team (Late st Contact Info) Description 07/17/2023 Orders Only [facility] [address] [place] [address] [place] [address] [place] [address] Degenerative cervical spinal stenosis (Primary Dx) Social [...] on file 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 MRI CERVICAL SPINE WO [...] canal stenosis. ?? Uncovertebral and facet arthropathy. ??Mdru-kq-befzjkms bilateral neural foraminal stenosis. C4-C5: ?? Postoperative fusion with mild spinal canal stenosis. ??Uncovertebral and facet arthropathy. ??Moderate left and mild right neural foraminal stenosis. C5-C6: ?? Postoperative fusion ??with moderate spinal canal stenosis. Uncovertebral and facet arthropathy. Moderate spinal canal stenosis. ??Moderate left and vrbj-tr-kqjuykzd right neural foraminal stenosis. C6-C7: ?? Postoperative [...] by ??Alexey Wagner M.D. AG: AG D: ??07/29/2023 1:43 PM T: ??07/29/2023 1:43 PM Report ID: [id number] Reading Location: ??[id number] Procedure Note Alexey Wagner MD - 07/29/2023 [...] spinal canal stenosis. Uncovertebral and facet arthropathy. Nkhw-tk-vwolrhqg bilateral neural foraminal stenosis. C4-C5: Postoperative fusion with mild spinal canal stenosis.Uncovertebral and facet arthropathy. Moderate left and mild right neural foraminal stenosis. C5-C6: Postoperative fusion with moderate spinal canal stenosis. Uncovertebral and facet arthropathy. Moderate spinal canal stenosis.Moderate left and mvcw-jh-dzmdbzow right neural foraminal stenosis. C6-C7: Postoperative fusion [...] stenosis. There is severe cord impingement with [id number] at this level that is grossly similar to the 01/17/2022 cervical spine MRI. Additional multilevel degenerative changes detailed above. THIS IS AN ELECTRONICALLY VERIFIED FINAL REPORT 07/29/2023 1:43 PM - Electronically signed by Alexey Wagner M.D. AG: ERIC Report ID: [id number] Reading Location: [place] [address] Gera Barbosa MD [facility] MRI PROCEDURES Final Resul t documented in this encounter Visit Diagnoses Diagnosis Degenerative cervical spinal stenosis- Primary Spinal stenosis in cervical region Degenerative cervical spinal stenosis Spinal stenosis in cervical region documented in this encounter Care Teams Revenue Enforcement Collection Agent Relationship Specialty Start Date End Date Lalito England MD [address] [place] [address] PCP - General 08/03/19 documented as of this encounter
--- OUTSIDE RECORDS SUMMARY | 2024-07-11 22:36 | XMS_ITS | Encounter Summary ---
Author Organization 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 However, pt states that semglee was sent in for 20 units daily. Pt wanting to know if she is suppose to be taking both insulins the [id number] units 3x daily and semglee 20 units daily? Pt states that her blood sugars have been in the 300's recently. Please advise since Sarah is out of the office until next week. Thanks RY DEMONSTRATOR * Telephone Encounter - Vielka Collins - 05/28/2023 2:11 PM CST Medical Question/Miscellaneous Caller???s Concern: Patient needs a call back as soon as possible. She was seen on Friday and one of her insulin's was called in incorrectly and she needs this fixed. Does message need to be routed? Yes-Action Needed RY DEMONSTRATOR documented in this encounter Plan of Treatment Not on file documented as of this encounter Visit Diagnoses Not on filedocumented in this encounter Care Teams Texture Artist Relationship Specialty Start Date End Date Lalito England MD [address] [place] [address] PCP - General 08/03/19 documented as of this encounter
--- OUTSIDE RECORDS SUMMARY | 2024-07-11 22:36 | XMS_ITS | Encounter Summary ---
Author Organization [facility] Healthcare Address [address] [place] [address] Care Team Providers Care Child Protective Services Specialist Name Role Phone Lalito England MD Primary Care Provider [phone] Reason for Visit * Reason Comments Medicare Wellness Pt here for her Aleah rowell Enhanced Encounter/ ACV. Diabetes Pt due for a foot ex am. Encounter Details Date Type Department Care Team (Late st Contact Info) Description 05/26/2023 11:30 AM AUTOMATIC LEHR OPERATOR Office Visit [facility] [address] [place] [address] Sarah Carter, MARKOS [address] [place] [address] Encounter for Medicare annual wellness exam (Primary Dx); Controlled type 2 diabetes mellitus with diabetic polyneuropathy, without long-term current use of insulin ([facility]) ([facility]); Adenomatous polyp of colon, unspecified part of colon; Type 2 diabetes mellitus with stage 3b chronic kidney disease, with long-term current use of insulin ([facility]); CKD (chronic kidney disease) stage 4, GFR 15-29 ml/min ([facility]) ([facility]); Class 2 severe obesity due to excess calories with serious comorbidity and body mass index (BMI) of 38.0 to 38.9 in adult ([facility]); Hypertension associated with diabetes ([facility]) Social History Tobacco Use Types Packs/Day Years [...] a nursing home (including now)? No 07/16/2022 Personal Safety Answer Date Recorded Getting School Help Needed Not on file 06/28 Comments No Sex and Gender Information Value Date Recorded Sex Assigned at Not on file Legal Sex Female 11:52 PM AUTOMATIC LEHR OPERATOR Gender Identity Not on file Sexual Orientation Not on file documented as of this encounter Last Filed Vital Signs Vital Sign Reading Time Taken Comments Blood Pressure 120/58 05/26/2023 11:19 AM AUTOMATIC LEHR OPERATOR Pulse 74 05/26/2023 11:19 AM AUTOMATIC LEHR OPERATOR Temperature 36.7 ??C (98.1 ??F) 05/26/2023 11:[address] Respiratory Rate 24 05/26/2023 11:19 AM AUTOMATIC LEHR OPERATOR Oxygen Saturation 95% 05/26/2023 11:19 AM AUTOMATIC LEHR OPERATOR Inhaled Oxygen Concentration - - Weight 109 kg (240 lb 6.4 oz) 05/26/2023 11:19 A M AUTOMATIC LEHR OPERATOR Height 167.6 cm (5' 5.98 ) 05/26/2023 11:19 AM Silvia EUBANKS Body Mass Index 38.82 05/26/2023 11:19 AM AUTOMATIC LEHR OPERATOR documented in this encounter Ordered Prescriptions Prescription Sig Dispense Quantity Refills Last Filled Start Date End Date insulin glargine (LANTUS) 100 unit/mL (3 mL) pen for injection Inject 20 Units under the skin daily 30 mL 5 05/26/2023 11/14/2023 semaglutide (OZEMPIC) 2 mg/dose (8 mg/3 mL) pen injector injection Inject 2 mg under the skin once a week 3 mL 3 05/26/2023 09/15/2023 documented in this encounter Progress Notes * Sarah Carter, MARKOS - 05/26/2023 11:30 AM CST MEDICARE ANNUAL WELLNESS VISIT Criss Ly Presents for Medicare wellness. No new complaints today. Compliant with medication regimen. Followswith multiple specialists. Pulmonology, Nephrology, Neurosurgery. Blood sugars have been elevated. 255 this morning. Compliant with Ozempic and Lantus. Metformin d/c'd by Nephrology. Denies polydipsia, polyphagia, polyuria. No current pressure ulcers. Follows with Podiatry through [facility]. Very nice lady. Medicare Health Risk Assessment Basic Information In general, would you say your health is: Good Do you have an advance directive, such as a living will or durable power of ip technology transactions attorney?: (!) No Would you like information regarding Advanced Directive (Living Will) and/or Durable Power of Filler Leaf Cutter Long?: No Do you have to strain or struggle to hear/understand conversations?: No Have you experienced any of the following problems currently or recently? Eating: No Grooming: No Bathing: No Walking: (!) Yes Using the toilet: No Memory problems: No Difficulty speaking: No Dressing: No Balance: (!) Yes Pain: (!) Yes Sexual Health: No Fatigue: (!) Yes Have you experienced any of the following problems currently or recently? 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 2007.; Comments: [facility] 07/25/2015 - HX OTHER MEDICAL Breast reduction 2008.; Comments: [facility] 07/25/2015 - HX OTHER MEDICAL left hip and leg surgery HX OTHER MEDICAL conversion of previous hip arthroplasty left hip; Comments: [facility] unit 02/06 - 02/17/16 for rehabilitation. [...] HIP ARTHROPLASTY Left 02/05/2016 Dr. David Sykes, [facility] - conversion of previous hip arthroplasty left [...] not drink Frequency of Binge Drinking: Never Diet: Meals provided at [facility] Physical Activities: Tries to stay active Allergies: No Known Allergies Current Medications: Outpatient Encounter Medications as of 05/26/2023 Medication Sig Dispense Refill albuterol HFA (PROVENTIL HFA,VENTOLIN HFA,PROAIR HFA) 90 mcg/actuation inhaler Inhale 2 puffs every6 (six) hours as needed for wheezing 1 each 2 alendronate (FOSAMAX) 70 mg tablet TAKE 1 TABLET BY MOUTH ONE TIME PER WEEK 12 tablet 2 apixaban (ELIQUIS) 5 mg tablet Take 1 [...] montior response. Dx: E11.22. 300 each 3 calcium carbonate-vitamin D3 500 mg(1,250mg) -400 unit tablet Take one by mouth two times per day 00 cloNIDine (CATAPRES) 0.1 mg tablet TAKE 1/2 TABLET BY MOUTH TWO TIMES A DAY 90 tablet 1 fluticasone propionate (Flovent Diskus) 100 mcg/actuation diskus inhaler Inhale 1 puff 2 (two) times a day Rinse mouth with water after use. Do not swallow. 60 each 3 furosemide (LASIX) 20 mg tablet Take 2 tablets (40 mg total) by mouth daily 180 tablet 4 gabapentin (NEURONTIN) 100 mg capsule Take 1 capsule (100 mg total) by mouth 3 (three) times a day 90 capsule 11 HYDROcodone-acetaminophen (NORCO) 5-325 mg per tablet Take 1 tablet by mouth every 6 (six) hours asneeded for pain 120 tablet 0 insulin aspart (NovoLOG) 100 unit/mL (3 mL) pen for injection Inject 15 Units under the skin 3 (three) times a day before meals 84 mL 2 lancets (MICROLET LANCET) misc test by fingerstick route 3 times daily 300 each 3 melatonin 3 mg tablet,disintegrating Take 1 tablet by mouth nightly as needed montelukast (SINGULAIR) 10 mg tablet TAKE 1 TABLET BY MOUTH EVERYDAY AT BEDTIME 90 tablet 1 omeprazole (PriLOSEC) 20 mg capsule TAKE 1 CAPSUEL BY MOUTH TWICE DAILY FOR GERD 180 capsule 5 pen needle, diabetic (BD Ultra-Fine Mini Pen Needle) 31 gauge x 3/16 needle 1 needle as directed 300 each 3 semaglutide (OZEMPIC) 2 mg/dose (8 mg/3 mL) pen injector injection Inject 2 mg under the skin once a week 3 mL 3 simvastatin (ZOCOR) 40 mg tablet TAKE 1 TABLET BY MOUTH EVERY DAY AT NIGHT 90 tablet 1 [DISCONTINUED] semaglutide (OZEMPIC) 1 mg/dose (4 mg/3 mL) pen injector injection Inject 1 mg underthe skin once a week 3 mL 2 blood-glucose meter (CONTOUR NEXT USB METER) misc test as directed 1 each 0 fluticasone propionate (FLONASE) 50 mcg/actuation nasal spray Administer 2 sprays into each nostrildaily 48 mL 1 insulin glargine (LANTUS) 100 unit/mL (3 mL) pen for injection Inject 20 Units under the skin daily30 mL 5 naloxone (NARCAN) 4 mg/actuation spray,non-aerosol Administer 1 spray into affected nostril(s) as needed for opioid reversal 1 each 0 nystatin powder Apply topically 4 (four) times a day 60 g 3 polyethylene glycol (MIRALAX) 17 gram/dose powder Take 17 g by mouth daily 850 g 1 [DISCONTINUED] apixaban (ELIQUIS) 2.5 mg tablet Take 1 tablet (2.5 mg total) by mouth 2 (two) timesa day (Patient not taking: Reported on 03/28/2023) [DISCONTINUED] Eliquis 5 mg tablet Take 1 tablet (5 mg total) by mouth 2 (two) times a day [DISCONTINUED] LANTUS 100 unit/mL (3 mL) pen for injection INJECT 48 UNITS SUBCUTANEOUSLY DAILY 30 mL 5 [DISCONTINUED] semaglutide 0.25 mg or 0.5 mg (2 mg/3 mL) pen injector injection Inject 0.5 mg underthe skin once a week 3 mL 0 No facility-administered encounter medications on file as of 05/26/2023. Pain Management Plan: -Alternative Medications: tylenol- cannot take NSAIDS -Severity of Pain moderate -Management of Pain with current medications: controlled -Risk for Opioid Misuse or Diversion: low -Referral to Specialist: Neurosurgery Depression Screen: PHQ Screening PHQ-2 Total Score (If total score is 3 or more points, staff should administer the PHQ-9): 1 Audio Screen: Is the patient having any problems with hearing? No Vitals: Vitals: 05/26/23 1119 BP: 120/58 BP Location: Left arm Patient Position: Sitting Pulse: 74 Resp: 24 Temp: 36.7 ??C (98.1 ??F) TempSrc: Oral SpO2: 95% Weight: 109 kg (240 lb 6.4 oz) Height: 167.6 cm (5' 5.98 ) Exam: Physical Exam Vitals reviewed. Constitutional: General: [...] No edema. Left lower leg: No edema. Feet: Right Foot: Monofilament exam: abnormal. Left Foot: Monofilament exam: abnormal. Lymphadenopathy: Cervical: No cervical adenopathy. Skin: Findings: No erythema. Neurological: Mental Status: She is alert and oriented to person, place, and time. Motor: Weakness present. Gait: Gait abnormal. Psychiatric: Thought Content: Thought content normal. Up and Go Test: Patient was unsteady or time test was longer than 30 seconds? Yes Care Team Providers: Patient Care Team: Lalito England MD as PCP - General Primary Pharmacy/DME suppliers: [facility] [id number] [place] [address] [facility] [id number] Detection of Cognitive Impairment: Detect cognitive impairment based on direct observation, discussion with patient or family, or review of medical records? No Counseling and Referral of Preventative Services: Other route measures as deemed appropriate: LIST OF RISK FACTORS AND CONDITIONS FOR WHICH PRIMARY, SECONDARY, TERTIARY INTERVENTIONS ARE RECOMMENDED OR ARE UNDERWAY WITH LIST OF TREATMENT OPTIONS AND THEIR RISKS AND BENEFITS. Please see patient instructions section for recommendations for appropriate screening and monitoring guidelines. Assessment and Plan: Audio Screen ordered? No No visits with results within 1 Week(s) from this visit. Latest known visit with results is: Lab on 05/19/2023 Component Date Value Ref Range Status WBC 05/19/2023 10.4 (H) 3.8 - 9.9 K/cumm Final Hgb 05/19/2023 10.0 (L) 11.9 - 15.5 g/dL Final Hct 05/19/2023 32.5 (L) 35.6 - 45.5 % Final Plt 05/19/2023 243 150 - 400 K/cumm Final MPV 05/19/2023 10.0 9.1 - 12.3 fL Final RBC 05/19/2023 3.86 (L) 3.90 - 5.20 M/cumm Final MCV 05/19/2023 84.2 81.3 - 96.4 fL Final MCH 05/19/2023 25.9 (L) 27.1 - 33.3 pg Final MCHC 05/19/2023 30.8 (L) 32.3 - 35.7 g/dL Final RDW CV 05/19/2023 14.8 11.1 - 14.9 % Final RDW SD 05/19/2023 45.1 35.7 - 48.1 fL Final NRBC abs 05/19/2023 0.00 0.00 - 0.01 K/cumm Final Sodium 05/19/2023 136 135 - 145 mmol/L Final Potassium, pl 05/19/2023 4.3 3.3 - 4.9 mmol/L Final Chloride 05/19/2023 95 (L) 97 - 110 mmol/L Final CO2 05/19/2023 27 22 - 32 mmol/L Final Anion gap 05/19/2023 14 2 - 15 mmol/L Final BUN 05/19/2023 25 6 - 25 mg/dL Final Creatinine 05/19/2023 1.55 (H) 0.60 - 1.10 mg/dL Final Glucose 05/19/2023 165 70 - 199 mg/dL Final Calcium 05/19/2023 10.0 8.5 - 10.3 mg/dL Final Bilirubin, total 05/19/2023 0.4 0.1 - 1.2 mg/dL Final Protein, pl 05/19/2023 7.3 6.5 - 8.5 g/dL Final Albumin 05/19/2023 4.0 3.5 - 5.0 g/dL Final Alk phos 05/19/2023 75 40 - 130 Units/L Final ALT 05/19/2023 21 7 - 45 Units/L Final AST 05/19/2023 31 10 - 45 Units/L Final Hgb A1C 05/19/2023 9.8 (H) 4.0 - 5.6 % Final Estimated Average Glucose 05/19/2023 235 mg/dL Final Neutrophil abs 05/19/2023 7.6 (H) 1.7 - 6.5 K/cumm Final Imm gran abs 05/19/2023 0.0 0.0 - 0.1 K/cumm Final Lymphocyte abs 05/19/2023 1.5 0.8 - 3.3 K/cumm Final Monocyte abs 05/19/2023 1.0 (H) 0.2 - 0.8 K/cumm Final Eosinophil abs 05/19/2023 0.2 0.0 - 0.5 K/cumm Final Basophil abs 05/19/2023 0.1 0.0 - 0.1 K/cumm Final Neutrophil pct 05/19/2023 72.8 % Final Imm gran pct 05/19/2023 0.4 % Final Lymphocyte pct 05/19/2023 14.8 % Final Monocyte pct 05/19/2023 9.3 % Final Eosinophil pct 05/19/2023 2.0 % Final Basophil pct 05/19/2023 0.7 % Final eGFR 05/19/2023 35 mL/min/1.73 m2 Final Diagnoses and all orders for this visit: Encounter for Medicare annual wellness exam (Primary) - Comprehensive metabolic panel; Future - CBC with auto differential; Future - Lipid panel; Future - Hemoglobin A1c; Future Visit preventive in nature. Reviewed medications, chronic conditions, risk factors, lifestyle recommendations. Reviewed vaccine recommendations. Follow-up in 6 months for chronic conditions, 1 year for annual wellness, sooner for any concerns. Controlled type 2 diabetes mellitus with diabetic polyneuropathy, without long- term current use of insulin ([facility]) ([facility]) - Comprehensive metabolic panel; Future - CBC with auto differential; Future - Lipid panel; Future - Hemoglobin A1c; Future Uncontrolled. Uptitrate Ozempic. Will also increase Lantus to 20 units daily. Continue monitoring blood sugar at home. Red flags reviewed. Will continue to monitor. Adenomatous polyp of colon, unspecified part of colon - Ambulatory referral to Gastroenterology; Future She is past due for follow-up colonoscopy. Referral placed. She is agreeable to schedule. Father with history of colon cancer. Type 2 diabetes mellitus with stage 3b chronic kidney disease, with long-term current use of insulin ([facility]) - Ambulatory referral to Nephrology; Future - Comprehensive metabolic panel; Future - CBC with auto differential; Future - Lipid panel; Future - Hemoglobin A1c; Future Renal function stable. She will continue to follow with Nephrology as well. CKD (chronic kidney disease) stage 4, GFR 15-29 ml/min ([facility]) ([facility]) See plan as above. Class 2 severe obesity due to excess calories with serious comorbidity and body mass index (BMI) of38.0 to 38.9 in adult ([facility]) Reviewed diet recommendations. Other orders - semaglutide (OZEMPIC) 2 mg/dose (8 mg/3 mL) pen injector injection; Inject 2 mg under the skin once a week - insulin glargine (LANTUS) 100 unit/mL (3 mL) pen for injection; Inject 20 Units under the skin daily The following health maintenance schedule was reviewed with the patient and provided in printed form in the after visit summary: Health Maintenance Topic Date Due DTaP/Tdap/Td Vaccine (1 - Tdap) Never done Zoster Vaccine (1 of 2) Never done Colon Cancer Screening-Colonoscopy 09/28/2021 Covid-19 Vaccine (8 - 2023-24 season) 2023 Osteoporosis Screening-Bone Density Scan 05/23/2023 Dilated Eye Exam 10/15/2023 Hemoglobin A1C 11/17/2023 Albumin Creatinine Ratio, Urine 03/28/2024 Lipid Panel 03/28/2024 eGFR 05/19/2024 Breast Cancer Screening-Mammogram 05/23/2024 Fall Risk Assessment 05/26/2024 Depression Screening-PHQ 05/26/2024 Well Visit 65+ 05/26/2024 Foot Exam 05/26/2024 Pneumococcal vaccine 65+ Completed Influenza Vaccine Completed Hepatitis C Screening Completed Colon Cancer Screening-DNA Stool Discontinued Colon Cancer Screening-CT Colonography Discontinued Colon Cancer Screening-FIT Discontinued Colon Cancer Screening-Sigmoidoscopy Discontinued There may be grammatical errors in this note due to use of voice recognition software. MATIC LEHR OPERATOR documented in this encounter Miscellaneous Notes * Addendum Note - Terrie Silva - 05/26/2023 11:30 AM CSTAddended by: TERRIE SILVA on: 09/17/2023 11:55 AM Modules accepted: Orders MATIC LEHR OPERATOR documented in this encounter Plan of Treatment Not on file documented as of this encounter Results * (ABNORMAL) Comprehensive metabolic panel (09/17/2023 11:54 AM AUTOMATIC LEHR OPERATOR) Sodium 140 135 - 145 mmol/L Comment:Testing performed by : [address] [address] Potassium, pl 3.6 3.3 - 4.9 mmol/L [facility] ([place]) Comment:Testing performed by : [address] [address] Chloride 100 97 - 110 mmol/L [facility] ([place]) Comment:Testing performed by : [address], [address] CO2 26 22 - 32 mmol/L [facility] ([place]) Comment:Testing performed by : [address], [address] Anion gap 14 2 - 15 mmol/L [facility] ([place]) Comment:Testing performed by : [address] [address] BUN 25 6 - 25 mg/dL [facility] ([place]) Comment:Testing performed by : [address] [address] Creatinine 1.84(H) 0.60 - 1.10 mg/dL [facility] ([place]) Comment:Testing performed by : [address], [address] Glucose 143 70 - 199 mg/dL [facility] ([place]) [...] was last revised 2022. Testing performed by: [address], [address] Calcium 9.8 8.5 - 10.3 mg/dL [facility] ([place]) Comment:Testing performed by : [address] [address] Bilirubin, total 0.4 0.1 - 1.2 mg/dL [facility] ([place]) Comment:Testing performed by : [address], [address] Protein, pl 7.4 6.5 - 8.5 g/dL [facility] ([place]) Comment:Testing performed by : [address], [address] Albumin 3.8 3.5 - 5.0 g/dL [facility] ([place]) Comment:Testing performed by : [address], [address] Alk phos 64 40 - 130 Units/L [facility] ([place]) Comment:Testing performed by : [address], [address] ALT 21 7 - 45 Units/L [facility] ([place]) Comment:Testing performed by : [facility], [address] [place] [address], [address] AST 31 10 - 45 Units/L [facility] ([place]) Comment:Testing performed by : [address], [address] Blood 09/17/2023 11:5 4 AM AUTOMATIC LEHR OPERATOR 09/17/2023 5:50 PM AUTOMATIC LEHR OPERATOR Sarah Carter CLOCK ASSEMBLER LAB BLOOD ORDERABLES Final Result [facility] ([place]) [facility] [place] [address] * (ABNORMAL) CBC with auto differential (09/17/2023 11:54 AM AUTOMATIC LEHR OPERATOR) WBC 7.7 3.8 - 9.9 K/cumm Comment:Testing performed by : [address], [address] Hgb 9.4(L) 11.9 - 15.5 g/dL [facility] ([place]) Comment:Testing performed by : [address], [address] Hct 32.4(L) 35.6 - 45.5 % [facility] ([place]) Comment:Testing performed by : [address], [address] Plt 231 150 - 400 K/cumm [facility] ([place]) Comment:Testing performed by : [address], [address] MPV 10.2 9.1 - 12.3 fL [facility] ([place]) Comment:Testing performed by : [address], [address] RBC 3.77(L) 3.90 - 5.20 M/cumm [facility] ([place]) Comment:Testing performed by : [address], [address] MCV 85.9 81.3 - 96.4 fL [facility] ([place]) Comment:Testing performed by : [address], [place]., [address] MCH 24.9(L) 27.1 - 33.3 pg [facility] ([place]) Comment:Testing performed by : [facility], [address] [place] [address], [address] MCHC 29.0(L) 32.3 - 35.7 g/dL [facility] ([place]) Comment:Testing performed by : [facility], [address] [place] [address], [address] RDW CV 15.4(H) 11.1 - 14.9 % [facility] ([place]) Comment:Testing performed by : [facility], [address] [place] [address], [address] RDW SD 48.4(H) 35.7 - 48.1 fL [facility] ([place]) Comment:Testing performed by : [facility], [address] [place] [address], [address] NRBC abs 0.00 0.00 - 0.01 K/cumm [facility] ([place]) Comment:Testing performed by : [facility], [address] [place] [address], [address] Blood 09/17/2023 11:5 4 AM AUTOMATIC LEHR OPERATOR 09/17/2023 5:50 PM AUTOMATIC LEHR OPERATOR Sarah Carter CLOCK ASSEMBLER LAB BLOOD ORDERABLES Final Result [facility] ([place]) [address] [facility] [place] [address] * Lipid panel (09/17/2023 11:54 AM AUTOMATIC LEHR OPERATOR) Cholesterol 134 30 - 199 mg/dL Comment: [...] revised on 2018. Testing performed by: [facility], [address] [place] [address]., [address] Triglycerides 121 <=149 mg/dL [facility] ([place]) [...] revised on 2018. Testing performed by: [facility], [address] [place] [address]., [address] HDL 45 >=40 mg/dL [facility] ([place]) [...] revised on 2018. Testing performed by: [facility], [address] [place] [address]., [address] LDL, calculated 65 <=129 mg/dL ANN CUADRA [...] revised on 2018. Testing performed by: [facility], [address] [place] [address]., [address] Non-HDL Cholesterol 89 mg/dL [facility] ([place]) [...] revised on 2018. Testing performed by: [facility], [address] [place] [address]., [address] Chol/HDL ratio 3 ANDRIA [facility] ([place]) Comment:Testing performed by : [facility], [address] [place] [address]., [address] Blood 09/17/2023 11:5 4 AM AUTOMATIC LEHR OPERATOR 09/17/2023 5:50 PM AUTOMATIC LEHR OPERATOR Sarah Carter NP LAB BLOOD ORDERABLES Final Result Performing Organization Address City/[facility]/ZIP Co de Phone Number ANN [facility] ([place]) [address] [facility] [place] [address] * (ABNORMAL) Hemoglobin A1c (09/17/2023 11:54 AM AUTOMATIC LEHR OPERATOR) Hgb A1C 8.9(H) 4.0 - 5.6 % Comment:Testing performed by : [facility], [address] [place] [address]., [id number] Estimated Average Glucose 209 mg/dL [facility] ([place]) Comment: The ADA recommends reporting an estimated Average Glucose (eAG) with all Hemoglobin A1c results using the equation derived from a study of 507 normal and diabetic adults. ??Minority populations were underrepresented and children were not included. ?? (Diabetes Care 31:2673-0906, 2008). ??The eAG is not equivalent to a fasting glucose. Testing performed by: [facility], [address] [place] [address]., [address] Blood 09/17/2023 11:5 4 AM AUTOMATIC LEHR OPERATOR 09/17/2023 5:50 PM AUTOMATIC LEHR OPERATOR us Sarah Carter NP LAB BLOOD ORDERABLES Final Result Performing Organization Address City/[facility] Co de Phone Number ANN [facility] ([place]) 1 [facility] [place] [address] documented in this encounter Visit Diagnoses Diagnosis Encounter for Medicare annual wellness exam- Primary Controlled type 2 diabetes mellitus with diabetic polyneuropathy, without long- term current use of insulin (HCC) Adenomatous polyp of colon, unspecified part of colon Type 2 diabetes mellitus with stage 3b chronic kidney disease, with long-term current use of insulin (HCC) CKD (chronic kidney disease) stage 4, GFR 15-29 ml/min ([facility]) ([facility]) Chronic kidney disease, Stage IV (severe) Class 2 severe obesity due to excess calories with serious comorbidity and body mass index (BMI) of 38.0 to 38.9 in adult ([facility]) Hypertension associated with diabetes ([facility]) Unspecified essential hypertension documented in this encounter Discontinued Medications Medication Sig Discontinue Reason Start Date End Da te apixaban (ELIQUIS) 2.5 mg tablet Take 1 tablet (2.5 mg total) by mouth 2 (two) times a day Alternate therapy 05/26/2023 Eliquis 5 mg tablet Take 1 tablet (5 mg total) by mouth 2 (two) times a day Duplicate order 06/21/2022 05/26/2023 semaglutide 0.25 mg or 0.5 mg (2 mg/3 mL) pen injector injectionIndications :type 2 diabetes mellitus Inject 0.5 mg under the skin once a week 02/27/2023 05/26/2023 semaglutide (OZEMPIC) 1 mg/dose (4 mg/3 mL) pen injector injection Inject 1 mg under the skin once a week 03/28/2023 05/26/2023 LANTUS 100 unit/mL (3 mL) pen for injectionIndications :Controlled type 2 diabetes mellitus with diabetic polyneuropathy, without long-term current use of insulin ([facility]) INJECT 48 UNITS SUBCUTANEOUSLY DAILY Reorder 01/04/2022 05/26/2023 documented as of this encounter Historical Medications * This list may reflect changes made after this encounter. biotin 10,000 mcg capsule Take 1 capsule (10,000 mcg total) by mouth daily 12/29/2023 melatonin 3 mg tablet,disintegra ting Take 1 tablet by mouth nightly as needed 12/29/2023 added in this encounter Care Teams Child Protective Services Specialist Relationship Specialty Start Date End Date Lalito England MD [address] [place] [address] PCP - General 08/03/19 documented as of this encounter
--- OUTSIDE RECORDS SUMMARY | 2024-07-11 22:36 | XMS_ITS | Encounter Summary ---
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 Gender Identity Not on file Sexual Orientation [...] 1 tablet (81 mg total) by mouth emergency room tech before breakfast Do not restart until 2 [...] long-term current use of insulin ([facility]) Inject 15 Units under the skin 3 [...] long-term current use of insulin ([facility]) TAKE 1 TABLET BY MOUTH AT BEDTIME [...] by mouth Before dentist 4 12/29/19 24 apixaban (ELIQUIS) 5 mg tablet Take 1 tablet (5 mg total) by mouth 2 (two) times a day 11/28/19 24 aspirin 81 mg enteric coated tabletIndications :prevention of thrombosis Take 1 tablet (81 mg total) by mouth emergency room tech before breakfast 11/28/19 24 biotin 10,000 mcg capsule Take 1 [...] NEUROPATHY 270 capsule 1 3 12/29/19 24 HYDROcodone-aceta minophen (NORCO) 5-325 mg per tablet Take 1 tablet by mouth every 6 (six) hours as needed for pain 120 tablet 4 11/17/19 24 melatonin 3 mg tablet,disintegra ting Take 1 tablet by mouth nightly as needed 12/29/19 24 methocarbamoL (ROBAXIN) 500 mg tablet Take 1 tablet (500 mg total) by mouth 3 (three) times a day 4 04/14/20 24 mupirocin (BACTROBAN) 2 % ointment Apply to nares BID starting 5 days prior to surgery ending the day prior 22 g 4 12/04/19 24 Nyamyc powder Apply topically emergency room tech before breakfast 4 05/26/20 24 omeprazole (PriLOSEC) [...] 02/29/20 24 documented as of this encounter Discharge Disposition Disposition Code Departure Means Destination Discharge to home or self care documented in this encounter Plan of Treatment Not on file documented as of this encounter Procedures Procedure Name Priority Date/Time Associated Diagnosis Comments TYPE AND SCREEN 14 DAY Routine 11/14/2023 12:26 PM CDT Preoperative testing documented in this encounter Results * TYPE AND SCREEN 14 DAY (11/14/2023 12:26 PM CDT) Janeth, indirect Negative ABO Rh B Positive [facility] Blood 11/14/2023 12:2 6 PM CDT 11/14/2023 4:12 PM CDT Narrative [facility] - 11/14/2023 5:18 PM CDT Is this test being ordered in advance for a procedure?->Yes Expected date of procedure:->11/24/23 Has the patient been transfused in the past 3 months?->No Has the patient been in the past 3 months?->No Nazario Rodriguez INBOUND SALES REPRESENTATIVE LAB BLOOD BANK TEST ORDERABLES Final Result [facility] Department [place] [address] documented in this encounter Visit Diagnoses Diagnosis Preoperative testing Unspecified pre-operative examination documented in this encounter Care Teams A P Mechanic Relationship Specialty Start Date End Date Lalito England MD [address] [place] [address] PCP - General 08/03/19 documented as of this encounter
--- OUTSIDE RECORDS SUMMARY | 2024-07-11 22:36 | XMS_ITS | Encounter Summary ---
Author Organization [facility] Healthcare Address [address] [facility] [place] [address] Care Team Providers Care Transformer Assembler Name Role Phone Lalito England MD Primary Care Provider [phone] Reason for Referral * MRI/CAT/PET Scan (Routine) - Closed Specialty Diagnoses / Procedures Referred By Contac t Referred To Contact Radiology Diagnoses Degenerative cervical spinal stenosis Cervical myelopathy (HCC) Procedures CT Cervical Spine WO Contrast Lizbet Stewart NP [address] [place] [address] Phone: tel: fax: [place] [phone] [place] [address] Referral ID Status Reason Start Date Expiration Date Visits Re quested Visits Authorized [id number] Closed 09/22/2023 10/21/2024 1 1 Reason for Visit * MRI/CAT/PET Scan (Routine) - Closed Specialty Diagnoses / Procedures Referred By Contac t Referred To Contact Radiology Diagnoses Degenerative cervical spinal stenosis Cervical myelopathy (HCC) Procedures CT Cervical Spine WO Contrast Lizbet Stewart NP [address] [place] [address] Phone: tel: fax: [place] [phone] [place] [phone] Referral ID Status Reason Start Date Expiration Date Visits Re quested Visits Authorized [id number] Closed 09/22/2023 10/21/2024 1 1 Encounter Details Date Type Department Care Team (Latest Contact Info) Description 10/08/2023 10:04 AM CDT - 10/08/2023 11:59 PM CDT Hospital Encounter [facility] [id number] [place] [id number] Degenerative cervical spinal stenosis; Cervical myelopathy (HCC) Discharge Disposition: Discharge to home or [...] on file 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 Gender Identity Not on file Sexual Orientation Not on file documented as of this encounter Medications at Time of Discharge blood glucose diagnostic (Contour Next Test Strips) [...] DAILY FOR HYPERTENSION 90 tablet 6 3 insulin aspart (NovoLOG) 100 unit/mL (3 mL) pen for injectionIndicati ons:Controlled type 2 diabetes mellitus with diabetic polyneuropathy, without long-term current use of insulin ([facility]) Inject 15 Units under the [...] needed for opioid reversal 1 each 2 simvastatin (ZOCOR) 40 mg tabletIndications :Controlled type 2 diabetes mellitus with diabetic polyneuropathy, without long-term current use of insulin ([facility]) TAKE 1 TABLET BY MOUTH AT BEDTIME 90 tablet 5 3 albuterol HFA (PROVENTIL HFA,VENTOLIN HFA,PROAIR HFA) 90 [...] tablet (81 mg total) by mouth early intervention specialist before breakfast 11/28/19 24 biotin 10,000 mcg capsule Take 1 capsule (10,000 mcg total) by mouth daily 12/29/19 24 calcium carbonate-vitamin D3 500 mg(1,250mg) -400 unit tablet Take one by mouth two times per day 0 0 8 04/14/20 24 Eliquis 5 mg tablet TAKE 1 TABLET BY MOUTH TWICE DAILY 60 tablet 17 3 11/14/19 24 fluticasone propionate (FLONASE) 50 mcg/actuation nasal [...] as needed for pain 120 tablet 4 10/13/19 24 insulin glargine (LANTUS) 100 unit/mL (3 mL) pen for injection Inject 20 Units under the skin daily 30 mL 5 3 11/14/19 24 melatonin 3 mg tablet,disintegra ting Take 1 tablet by mouth nightly as needed 12/29/19 24 omeprazole (PriLOSEC) 20 mg capsule TAKE 1 CAPSUEL BY MOUTH TWICE DAILY FOR GERD 180 capsule 5 3 06/28/20 24 pen needle, diabetic (BD Ultra-Fine Mini [...] Name Priority Date/Time Associated Diagnosis Comments CT CERVICAL SPINE WO CONTRAST Schedule Routine, Read Routine (OP Routine) 10/08/2023 10:10 AM CDT Degenerative cervical spinal stenosis Cervical myelopathy (HCC) documented in this encounter Results * CT Cervical Spine WO Contrast (10/08/2023 10:10 AM CDT) Anatomical Region Laterality Modality Spine N/A Computed Tomogra phy 10/08/2023 1:01 PM CDT Impressions 10/08/2023 1:01 PM CDT Unchanged 5 mm of C7 on T1 anterior subluxation with lufi-zt-hgcw abutment of the endplates, sclerosis and severe bilateral facet arthropathy inferior to a C3-C7 solid non-instrumented interbody fusion construct. ??Persistent severe central canal stenosis at this point of known spinal cord compression demonstrated on 07/29/2023 MRI. Severe bilateral neural foraminal stenosis results from loss of height and subluxation. Electronically signed by: Quang Collado MD Narrative 10/08/2023 1:01 PM CDT EXAMINATION: CT of the cervical spine without contrast HISTORY: Cervical myelopathy, operative planning. TECHNIQUE: CT of the cervical spine was performed according to the standard protocol without intravenous contrast. COMPARISON: 07/29/2023 MRI FINDINGS: No acute fracture. Unchanged 5 mm of C7 on T1 anterior subluxation with iydq-fl-[id number] abutment of the endplates, sclerosis and severe [...] of C7 on T1 anterior subluxation with cfwn-yb-cbbw abutment of the endplates, sclerosis and severe [...] of C7 on T1 anterior subluxation with msul-nw-ntgk abutment of the endplates, sclerosis and severe bilateral facet arthropathy inferior to a C3-C7 solid non-instrumented interbody fusion construct. Persistent severe central canal stenosis at this point of known spinal cord compression demonstrated on 07/29/2023 MRI. Severe bilateral neural foraminal stenosis results from loss of height and subluxation. Electronically signed by: Quang Collado MD Lizbet Stewart NP IMG CT PROCEDURES Final Re sult documented in this encounter Visit Diagnoses Diagnosis Degenerative cervical spinal stenosis Spinal stenosis in cervical region Cervical myelopathy (HCC) Cervical spondylosis with myelopathy documented in this encounter Care Teams Transformer Assembler Relationship Specialty Start Date End Date Lalito England MD [address] [place] [address] PCP - General 08/03/19 documented as of this encounter
--- OUTSIDE RECORDS SUMMARY | 2024-07-11 22:36 | XMS_ITS | Encounter Summary ---
Author Organization [facility] Address [address] [place] [address] Phone Care Team Providers Care Longitudinal Float Operator Name Role Phone Lalito England MD Primary Care Provider [phone] Encounter Details Date Type Department Care Team (Late st Contact Info) Description 09/22/2023 Telephone [facility] Neurosurgery [address] [facility] Medical Office [address] [place] [address] Lizbet Stewart, MARKOS [address] [place] [address] Social History Tobacco Use Types [...] on file 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 Castillo. He is willing to see the patient to discuss cervical surgery regarding her cervical myelopathy. He was aware of her increased hemoglobin A1c. I reached out toher primary care provider regarding blood glucose management. Her last hemoglobin A1c was 8.9. I have scheduled the patient for a CT of the cervical spine and office visit with Dr. Castillo on October 07. I left a voicemail with the details and requested that she can firm the receipt of the voicemail. documented in this encounter Plan of Treatment Not on file documented as of this encounter Visit Diagnoses Not on filedocumented in this encounter Care Teams Longitudinal Float Operator Relationship Specialty Start Date End [place] [address] PCP - General 08/03/19 documented as of this encounter
--- OUTSIDE RECORDS SUMMARY | 2024-07-11 22:36 | XMS_ITS | Encounter Summary ---
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 (HCC) Lalito England MD [address] [place] [address] Phone: tel: fax: Mark Pickett MD [address] [facility] [place] [id number] [place] [address] Phone: tel: fax: Referral ID Status Reason Start Date Expiration Date Visits Requested Visits Authorized [id number] Authorized Specialty Services Required 10/27/2023 10/27/2024 12 12 Encounter Details Date Type Department Care Team (Late st Contact Info) Description 10/27/2023 10:00 AM CDT Office Visit [facility] Surgery [address] [place] [address] [address] [place] [phone] Mark Pickett MD [address] [facility] [place] [phone] [place] [address] Melanoma of right upper arm [...] on file 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 Gender Identity Not on file Sexual Orientation Not on file documented as of this encounter Progress Notes * Mark Pickett MD - 10/27/2023 10:00 AM CDT Plastic and Reconstructive Surgery History [...] bound as her legs no longer work Past Medical History: Diagnosis Date Asthma Benign hypertension with CKD (chronic kidney disease) stage III (HCC) Gastroesophageal reflux disease GERD HX OTHER MEDICAL PMO 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 2008.; Comments: [facility] 07/25/2015 - HX OTHER MEDICAL Breast reduction 2009.; Comments: [facility] 07/25/2015 - HX OTHER MEDICAL left hip and leg surgery HX OTHER MEDICAL conversion of previous hip arthroplasty left hip; Comments: ON LICENSE OF [facility] TCU unit 02/06 - 02/17/16 [...] HIP ARTHROPLASTY Left 02/05/2016 Dr. David Sykes, ON LICENSE OF [facility] - conversion of previous hip arthroplasty left hip: Conversion of Arthroplasty left hip TOTAL KNEE ARTHROPLASTY Left 09/27/2005 Left TKA - Dr. Cole Beckham TOTAL KNEE ARTHROPLASTY Right 08/27/2001 Right TKA - Dr. Kuldeep Basurto Family History Problem Relation Age of Onset Diabetes Mother Diabetes mellitus; Hypertension Mother Hypertension; Heart disease Father Heart disease; Heart failure Father CHF; Cause of : CHF Colon cancer Father Diabetes Brother Diabetes mellitus; Cancer Brother Lymphoma Brother Cancer -lymphoma; Stroke Brother Hypertension Brother Breast cancer Neg Hx Ovarian cancer Neg Hx Thyroid cancer Neg Hx Social History Tobacco Use Smoking status: Never Smokeless tobacco: Never Substance and Sexual Activity Drug use: Never Sexual activity: Defer Alcohol Use: Not At Risk (10/08/2023) AUDIT-C Frequency of Alcohol Consumption: Never Average Number of Drinks: Patient does not drink Frequency of Binge Drinking: Never No Known Allergies Current Outpatient Medications on File Prior to [...] with a diagnosed melanoma the right posterolateral arm, clinical Stage I (T1a Nx Mx). I reviewed the findings with the patient at length. I explained the differences between the common cutaneous malignancies and how this diagnosis differs from the others. My goal is to excise the lesion in question with a healthy margin of tissue. I explained that despite a healthy margin, there is a chance of a positive margin. I explained that the final pathology will ultimately determine the final diagnosis as well as need for further procedures. The patient verbalizes understanding of this. The resulting defect will require reconstruction. We reviewed the reconstruction options, includingprimary closure, skin graft, local tissue rearrangement, or distant flaps. Based on the surroundingtissue, I believe this will best be accomplished by ATT. The patient verbalizes understanding of this. I described the risks and rationale of surgical treatment, including, but not limited to, bleeding,infection, pain, scarring, incomplete excision, need for re-excision, injury to surrounding structures, wound dehiscence, delayed wound healing, and need for further surgery. All questions were answered. The patient verbalized understanding and wished to proceed. I recommended that regardless of the outcome, the patient undergo full body skin checks by Dr. Covington. She is having neck surgery on November 23 and would like to have melanoma addressed after this, which I think is reasonable. We will plan to proceed with wide local excision melanoma right shoulder. We will reconstruct the defect by adjacent tissue transfer. This will be done in the OR under [place]. We will schedule accordingly. Pt may call back with any questions or concerns in the interim. Follow up: surgery Restriction: none I spent 30 minutes on this patient encounter which included review of medical records. Over half the time was spent with the patient face to face discussing the treatment plan, counseling and coordinating care. Mark Pickett MD 10/27/23 9:39 AM This document was transcribed using voice recognition software without a human real estate lawyer. Itmay contain typographical, grammatical, and/or syntax errors. documented in this encounter Plan of Treatment Not on file documented as of this encounter Visit Diagnoses Diagnosis Melanoma of right upper arm (HCC)- Primary documented in this encounter Historical Medications * This list may reflect changes made after this encounter. triamcinolone (KENALOG) 0.1 % cream Apply topically legs 10/24/2023 SEMGLEE-yfgn 100 unit/mL (3 mL) pen for injection Inject 20 Units under the skin nightly 10/22/2023 finasteride (PROSCAR) 5 mg tablet Take 1 tablet (5 mg total) by mouth daily Has not started 10/24/2023 Nyamyc powder Apply topically classification case manager before breakfast 10/22/2023 4 added in this encounter Care Teams Stove Carriage Operator Relationship Specialty Start Date End Date Lalito England MD [address] [place] [address] PCP - General 08/03/19 documented as of this encounter
--- OUTSIDE RECORDS SUMMARY | 2024-07-11 22:36 | XMS_ITS | Encounter Summary ---
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 Ly rescheduled her colonoscopy from 11/03/23 to 04/13/24 @ 1230 PM documented in this encounter Plan of Treatment Not on file documented as of this encounter Visit Diagnoses Not on filedocumented in this encounter Care Teams Wage And Hour Investigator Relationship Specialty Start Date End Date Lalito England MD [address] [place] [address] PCP - General 08/03/19 documented as of this encounter
--- OUTSIDE RECORDS SUMMARY | 2024-07-11 22:36 | XMS_ITS | Encounter Summary ---
Author Organization [facility] Healthcare Address [address] [facility] [address] [place] [address] Care Team Providers Care Bread Icer Name Role Phone Lalito England MD Primary Care Provider [phone] Reason for Visit * Auth/Cert (Routine) Specialty Diagnoses / Procedures Referred By Contac t Referred To Contact Diagnoses Cervicalgia Cervicalgia [M54.2] Procedures MA ARTHRODESIS POSTERIOR/POSTERIORLATERAL CERVICAL BELOW C2 MA LIND FACETECTOMY & FORAMOTOMY 1 VRT SGM CERVICAL MA ARTHRD PST/PSTLAT TQ 1NTRSPC CRV BELW C2 SEGMENT MA ARTHRODESIS PST/PSTLAT TQ 1NTRSPC EA ADDL NTRSPC MA ARTHRODESIS PST/PSTLAT TQ 1NTRSPC EA ADDL NTRSPC MA POSTERIOR SEGMENTAL INSTRUMENTATION 3-6 VRT SEG MA AUTOGRAFT SPINE SURGERY LOCAL FROM SAME INCISION MA ALLOGRAFT FOR SPINE SURGERY ONLY MORSELIZED FUSION CERVICAL/THORACIC - POSTERIOR WITH INSTRUMENTATION; C6-T2 posterior spinal fusion with a C7-T1 decompression and bilateral foraminotomies SPINAL CORD MONITORING FORAMINOTOMY CERVICAL - POSTERIOR; C6-T2 posterior spinal fusion with a C7-T1 decompression and bilateral foraminotomies Referral ID Status Reason Start Date Expiration Date Visits Re quested Visits Authorized [id number] 1 1 Encounter Details Date Type Department Care Team (Late st Contact Info) Description 11/24/2023 12:31 PM CDT Anesthesia Event [facility] Operating Room 1 [place] [address] Amarilys Boss MD PhD [address] [place] [address] Radha Andrade, RN Anesthesia Record Procedure Summary Procedure Name Responsible Anesthesiologist Anesthesia Start Time Anesthesia Stop Time FUSION CERVICAL/THORACIC - POSTERIOR WITH INSTRUMENTATION C5-T2 posterior spinal fusion with a C5-T2 decompression and bilateral foraminotomies Amarilys Boss MD PhD 11/24/23 1231 11/24/23 1814 Events Date Time Event Comment 11/24/2023 1125 In Preop 1231 An Start 1237 In Room 1238 An Start Data 1248 An Induction The patient was reevaluated immediately before moderate or deep sedation use and before anesthesia induction. 1251 An Intubation 1259 Anesthesia Ready 1323 Patient Positioned Prone [address] Castillo, MAPs to be 100 and blood glucose to be below 120. 1405 Incision Start 1405 Proc Start 1649 Arterial Line sampling artif act 1745 Position Supine 1747 An Extubation 1753 an stop data 1800 Proc Fin 1800 Out of Room 181 Handoff to RN I completed my handoff [...] disposition at the time of handoff: PACU 1813 An Stop Meds Name Total midazolam PF 2 mg lidocaine (cardiac) syringe 2 % 40 mg propofol 130 mg propofol 3,305.79 mg fentaNYL 250 mcg succinylcholine 100 mg phenylephrine 100 mcg/mL 500 mcg ondansetron PF (ZOFRAN) 2 mg/mL injectio n 4 mg vancomycin 1500 mg/515 mL in sodium chlo ride 0.9% (premix) 1,500 mg 1,500 mg ceFAZolin (ANCEF) 2,000 mg/20 mL in ster ile water (premix) 2,000 mg 2,000 mg insulin regular in 0.9% sodi um chloride (MYXREDLIN) 100 unit/100 mL (1 unit/mL) infusion (premix) 9.67 Units magnesium sulfate 2 g/50 mL 2 g dexAMETHasone 10 mg/mL PF 10 mg niCARdipine 200 mcg methadone 10 mg/mL 10 mg phenylephrine infusion (100 mcg/mL) 8.88 mg ketamine 10 mg/mL 50 mg Lactated Ringer's (LR) infusion 1,500 mL LR 0 mL NS 0.9% 124.5 mL * Agents Name O2% N2O O2 N2O Air Sevoflurane Inspired Sevoflurane * Blood Name Total PRBC - CROSSMATCHED 350 mL Lines, Drains, and Airways Type Details Placement [...] RN 04/20/24 0737 by Susy Chavez RN Peripheral IV Placement Date: 11/24/23; Placement Time: 1205; Catheter Size: 18 G; Orientation: Right; Location: Antecubital; Insertion Attempts: 2; Patient Tolerance: Tolerated well; Removal Date: 12/04/23; Removal Time: 1232; Removal Reason: Discharge 11/24/23 1205 by Maryanne Barnett, SEBASTIÁN 12/04/23 1232 by Naomy Ochoa Urethral Catheter Placement Date: 11/24/23; Placement Time: 1250; Inserted by: SEBASTIÁN Stuart; Type: Non-latex, Temperature probe; Balloon Size: 10 mL; Urine Returned: Yes; Removal Date: 11/24/23; Removal Time: 174; Removal Reason: Disontinued in OR 11/24/23 1250 by Paola Stuart RN 11/24/23 1748 by Paola Stuart RN ETT Placement Date: 11/24/23; Placement Time: 1316 (created via procedure documentation); Mask Ventilation: 0; Technique: Video laryngoscopy; Type: ETT - single; Single Lumen Tube Size: 7 mm; Cuffed: Yes; Laryngoscope: Jason; Blade Size: 3; Location: Oral; Insertion Attempts: 1; Placement Verification: Auscultation, Capnometry; Removal Date: 11/24/23; Removal Time: 174611/24/23 1316 by Wagner Madison CRNA 11/24/23 1747 by Silvia Neri CRNA Peripheral IV Placement Date: 11/24/23; Placement Time: 131 (created via procedure documentation); Catheter Size: 16 G; Orientation: Left; Location: Hand; Site Prep: Chlorhexidine; Insertion Attempts: 1; Removal Date: 11/26/23; Removal Time: 1047; Removal Reason: Per patient/family request 11/24/23 1316 by Wagner Madison, DONIS 11/26/23 1047 by Graciela Pink RN Arterial Line Placement Date: 11/24/23; Placemnt Time: 131 (created via procedure documentation); Size: 20 G; Orientation: Left; Location: Radial; Securement: Taped, Transparent dressing; Removal Date: 11/25/23; Removal Time: 1230; Removal Reason: Therapy completed 11/24/23 1317 by Wagner Madison, FIRST AID OFFICER 11/25/23 1230 by Svitlana Klein, SEBASTIÁN RETIRED Surgical Site 11/24/23; 1405; Posterior; Spine; 04/20/24; 0737 11/24/23 1405 by Paola Stuart RN 04/20/24 0737 by Susy Chavez RN RETIRED Surgical Site 11/24/23; 1720; Ba ck; Dermabond, Aquacel; 04/20/24; 0737 11/24/23 1720 by Paola Stuart RN 04/20/24 0737 by Susy Chavez RN Closed/Suction/Open Drain 11/24/23; 1740; 1; Left, Superior; Back; Bulb; 10 Fr. 11/24/23 1740 by Paola Stuart RN 12/04/23 0000 by Andi Simmons NP documented in this encounter Social History Tobacco [...] in a half-way (including now)? No 07/16/2022 Personal Safety Answer Date Recorded Have you ever been in or are you currently in a harmful physical or emotional relationship or is someone making you feel afraid or unsafe? Denies 11/24/2023 Comments No Sex and Gender Information Value Date Recorded Sex Assigned at Not on file Legal Sex Female 11:52 PM [employer] Gender Identity Not on file Sexual Orientation Not on file documented as of this encounter OR Notes * Anesthesia Postprocedure Evaluation - Mary Jo Saldana MD - 12/01/2023 9:37 AM CDT Patient: Criss Ly Procedure Summary Date: 11/24/23 Room / Location: [facility] OR POD 5 ROOM 235 / [facility] OR POD 5 Anesthesia Start: 1231 Anesthesia Stop: 1813 Procedures: FUSION CERVICAL/THORACIC - POSTERIOR WITH INSTRUMENTATION C5-T2 posterior spinal fusion with a C5-T2 decompression and bilateral foraminotomies SPINAL CORD MONITORING FORAMINOTOMY CERVICAL - POSTERIOR C5-T2 posterior spinal fusion with a C5-T2 decompression and bilateral foraminotomies (Bilateral: Spine Cervical) Diagnosis: Cervicalgia (Cervicalgia [M54.2]) Surgeons: Brennan Castillo MD Responsible Provider: Amarilys Boss MD PhD Anesthesia Type: general TIVA ASA Status: 3 Anesthesia Type: general TIVA Last vitals BP 133/61 Pulse 93 Temp 36.3 ??C (97.3 ??F) Resp 16 SpO2 96% Anesthesia Post Evaluation No notable events documented. * Anesthesia Procedure Notes - Wagner Madison CRNA - 11/24/2023 1:16 PM CDTAssociated Order(s): Arterial Line Arterial Line Patient location: OR Staff: Placed by: Anesthesiologist: Amarilys Boss MD PhD Procedure prep: Prep solution: chlorhexadine/alcohol Prep: sterile gloves and provider hat/mask Arterial line: Catheter size: 20 gauge Catheter length: 1 and 3/4 inch Catheter type: wire-guided catheter Seldinger technique: no Laterality: left Site: radial artery Line secured: Tegaderm and tape Results: good waveform and good blood return Number of attempts: 1 * Anesthesia Procedure Notes - Wagner Madison CRNA - 11/24/2023 1:16 PM CDTAssociated Order(s): Peripheral IV Catheter Peripheral IV Catheter Staff: Placed by: Anesthesiologist: Amarilys Boss MD PhD Preprocedure prep: Prep solution: chlorhexadine PPE: provider hat/mask and gloves PIV line: Laterality: left Site: hand Catheter size: 16 g Technique: direct visualization Procedure details: occlusive dressing applied and good blood return Number of attempts: 1 Assessment: Events: patient tolerated procedure well with no complications * Anesthesia Procedure Notes - Wagner Madison CRNA - 11/24/2023 1:15 PM CDTAssociated Order(s): Airway Airway Patient location: OR Urgency: elective Indications for airway management: anesthesia Difficult airway: no Staff: Supervising provider: Amarilys Boss MD PhD Placed by: FIRST AID OFFICER: Wagner Madison CRNA Emergent airway documentation: Risks and benefits discussed: yes Consent obtained: yes Consent given by: patient Airway prep: Preoxygenated: yes Patient position: sniffing MILS maintained throughout: yes Mask difficulty assessment: 0 - not attempted Spontaneous ventilation during airway: absent Sedation level during airway: GA Final airway details: Final airway type: endotracheal airway Tube type: ETT ETT size: 7.0 mm Cuffed: yes Technique used for successful ETT placement: video laryngoscopy Devices/Methods used in placement: stylet Insertion site: oral Blade type: Jason Video blade type: Alcocer Blade size: 3 Cormack-Lehane (video): grade I - full view of glottis Cuff volume: 7 mL Cuff inflated with: air ETT to lips: 22 cm Placement verified by: auscultation and CO2 detection Airway secured with: silk tape Number of attempts: 1 * Anesthesia Preprocedure Evaluation - Amarilys Boss MD PhD - 11/14/2023 10:33 AM CDT Images from the original note were not included. 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 Reports kidney function is monitored by PCP. Baseline Cr 1.5-1.8 Musculoskeletal/Pain + Chronic pain + Chronic opioid use (Takes 3 [place] per day) - daily. + Osteoarthritis Endocrine [...] with: Isis Cain MD Additional comments: Criss Ly is a 73 y.o. female [...] therapy when feasible in the postoperative period. [employer] staff message sent to surgeon's office. Please call the CPAP chart room clinician ([phone]) with any questions. The patient is on oral anticoagulation therapy with apixaban (ELIQUIS) and is scheduled for a procedure with a planned/possible nerve block and/or is at low or intermediate risk for perioperative thrombosis. Estimated creatinine clearance is significantly impaired at 25 ml/min. We recommend holdingall doses of this anticoagulant for 96 hours prior to the procedure. Therapeutic anticoagulation should be resumed post-operatively when the bleeding risk is acceptable. Alternative anticoagulation therapies can be used in the interim if acceptable. [employer] staff message sent to surgeon's office. Please call the CPAP chart room clinician ([phone]) to revisit risk assessment, with any questions, or to discuss alternative management plans. Preoperative evaluation performed by Nazario Rodriguez NP on 11/14/23 at 10:47 AM. . Follow up note Labs reviewed and are significant for: PT/INR=19.4/1.7, PTT=78, consistent with Apixaban. Labs reviewed and are significant for a total CO2 of 29 . With a STOP-Bang score of 3-4, this qualifies the patient as high risk for severe JASMINA. JASIMNA order set initiated. Awaiting outside records. Surgeon's [...] Patient Active Problem List Diagnosis Date Noted 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 ([facility]) 11/10/2023 Melanoma of right upper arm ([facility]) 10/27/2023 BMI 39.0-39.9,adult 10/05/2023 Chronic anticoagulation 10/05/2023 Family history of colon cancer in father 05/27/2023 Encounter for screening colonoscopy 05/27/2023 Personal history of COVID-19 02/18/2022 Acute embolism and thrombosis of right femoral vein ([facility]) 01/18/2022 Age-related osteoporosis without current pathological fracture 01/18/2022 Difficulty in walking, not elsewhere classified 01/18/2022 Gastro-esophageal reflux disease without esophagitis 01/18/2022 Hypertension secondary to endocrine disorders 01/18/2022 Spinal stenosis, lumbar region without neurogenic claudication 01/18/2022 Type 2 diabetes mellitus with diabetic neuropathy, unspecified ([facility]) 01/18/2022 Unsteadiness on feet 01/18/2022 Type 2 diabetes mellitus with hyperlipidemia ([facility]) 01/17/2022 Chronic back pain 01/17/2022 Weakness of both lower extremities 01/16/2022 Lumbar radiculopathy 12/06/2021 Sacroiliitis ([facility]) 09/07/2021 Cervicalgia 09/07/2021 Low back pain 09/07/2021 Insomnia secondary to chronic pain 09/07/2021 Degenerative cervical spinal stenosis 09/07/2021 Degenerative disc disease, cervical 09/07/2021 CKD (chronic kidney disease) stage 4, GFR 15-29 ml/min ([facility]) ([facility]) 08/23/2021 Morbid (severe) obesity due to excess calories ([facility]) 08/22/2021 DDD (degenerative disc disease), lumbar 08/17/2021 Degenerative lumbar spinal stenosis 08/17/2021 Lumbar post-laminectomy syndrome 08/17/2021 Persistent vomiting 11/17/2018 Hx of colonic polyps 09/04/2018 Family hx of colon cancer 09/04/2018 Healthcare maintenance 12/27/2016 Medication management 12/27/2016 Idiopathic osteoporosis with pathological fracture 08/14/2015 Arthralgia of hip 07/21/2015 Adenomatous polyp of colon 04/08/2015 Sarcoidosis of lung ([facility]) 04/08/2015 Fever 08/25/2014 Type 2 diabetes mellitus with stage 3 chronic kidney disease, with long-term current use of insulin([facility]) 11/27/2013 Severe obesity (BMI 35.0-39.9) with comorbidity ([facility]) 11/27/2013 Hyperlipidemia 04/01/2012 Disorder of peripheral nervous system ([facility]) 04/01/2012 Hypertension associated with diabetes ([facility]) 04/01/2012 Past Medical History: Diagnosis Date Asthma Benign hypertension with CKD (chronic kidney disease) stage III ([facility]) Gastroesophageal reflux disease GERD HX OTHER MEDICAL PMO HX OTHER MEDICAL CONVOLUTE TUBE WINDER HX OTHER MEDICAL [facility] OA HX OTHER MEDICAL 2008 Discectomy, cervical HX OTHER MEDICAL Fall HX OTHER MEDICAL Left proximal femoral Gamma Nail fixation proximal; Comments: [facility] 07/25/2015 - HX OTHER MEDICAL RTKR 2001.; Comments: [facility] 07/25/2015 - HX OTHER MEDICAL LTKR 2006.; Comments: [facility] 07/25/2015 - HX OTHER MEDICAL Back surgery 2007.; Comments: [facility] 07/25/2015 - HX OTHER MEDICAL Cervical disc surg. 2008.; Comments: [facility] 07/25/2015 - HX OTHER MEDICAL Breast reduction 2008.; Comments: [facility] 07/25/2015 - HX OTHER MEDICAL left hip and leg surgery HX OTHER MEDICAL conversion of previous hip arthroplasty left hip; Comments: [facility] TCU unit 02/06 - 02/17/16 for rehabilitation. Hyperlipidemia Hyperlipidemia Hypertension Hypertension Lumbar stenosis Osteoarthritis Osteoarthritis Osteoporosis Polyp of colon colon polyps Sarcoidosis Sarcoidosis Type 2 diabetes mellitus (HCC) Diabetes type 2 Type 2 diabetes mellitus with diabetic autonomic (poly)neuropathy ([facility]) Type 2 diabetes mellitus with hyperglycemia ([facility]) ([facility]) Type II diabetes mellitus with stage 3 [...] HIP ARTHROPLASTY Left 02/05/2016 Dr. David Sykes, [facility] - conversion of previous hip arthroplasty [...] E11.22. blood-glucose meter (CONTOUR NEXT USB METER) [facility] [place] -- Clayton Sandoval MD test [...] a day before meals lancets (MICROLET LANCET) [facility] [place]/26[place]15 -- Clayton Sandoval MD test [...] Pen Needle) 31 gauge x 09/26 needle -- 07/24/22 -- Lalito England MD [...] (KENALOG) 0.1 % cream 11/13/2023 10/24/23 -- ProviderSofiya MD Notes: Current Outpatient Medications: alendronate (FOSAMAX) 70 mg tablet amoxicillin 500 mg capsule apixaban (ELIQUIS) 5 mg tablet aspirin 81 mg enteric coated tablet biotin 10,000 mcg capsule calcium carbonate-vitamin D3 500 mg(1,250mg) -400 unit tablet cloNIDine (CATAPRES) 0.1 mg tablet docusate sodium (COLACE) 100 mg capsule Eliquis 5 mg tablet fluticasone propionate (FLONASE) 50 mcg/actuation nasal spray fluticasone propionate (Flovent Diskus) 100 mcg/actuation diskus inhaler furosemide (LASIX) 20 mg tablet gabapentin (NEURONTIN) 100 mg capsule HYDROcodone-acetaminophen (NORCO) 5-325 mg per tablet insulin aspart (NovoLOG) 100 unit/mL (3 mL) pen for injection montelukast (SINGULAIR) 10 mg tablet Nyamyc powder omeprazole (PriLOSEC) 20 mg capsule polyethylene glycol (MIRALAX) 17 gram/dose powder semaglutide (Ozempic) 2 mg/dose (8 mg/3 mL) pen injector injection [id number]-[id number] 100 unit/mL (3 mL) pen for injection simvastatin (ZOCOR) 40 mg tablet triamcinolone (KENALOG) 0.1 % cream albuterol HFA (PROVENTIL HFA,VENTOLIN HFA,PROAIR HFA) 90 mcg/actuation inhaler blood glucose diagnostic (Contour Next Test Strips) strip blood-glucose meter (CONTOUR NEXT USB METER) [facility] finasteride (PROSCAR) 5 mg tablet lancets (MICROLET LANCET) misc melatonin 3 mg tablet,disintegrating mupirocin (BACTROBAN) 2 % ointment naloxone (NARCAN) 4 mg/actuation spray,non-aerosol pen needle, [...] cancer Neg Hx Thyroid cancer Neg Hx PAT Physical Exam [...] of C7 on T1 anterior subluxation with [id number] abutment of the endplates, sclerosis and severe [...] for requested labs within last 30 days. DOS Physical Exam Medical history, medications, and allergies reviewed. Attestation: I endorse the findings of the anesthesia pre-evaluation assessment dated: 11/14/2023. Airway Exam: Mallampati: III Cervical ROM: FROM Cardiovascular Exam: Rate: regular Rhythm: regular Current state: Patient's current state is cooperative and interactive. Anesthesia Plan ASA 3 Planned anesthesia: General Team communication plan: oral ET tube Invasive Monitors Planned: Invasive monitors planned: arterial line. Induction: Induction: intravenous. Postoperative Plan: Postoperative administration opioids intended. No postoperative mechanical ventilation intended. Patient's planned disposition post procedure is Floor. Planned trial extubation. Informed Consent: Discussed plan with FIRST AID OFFICER. Anesthesia plan and risks discussed with patient. [...] Procedure Name Priority Date/Time Associated Diagnosis Comments MA AN PROCEDURE PLACEHOLDER Routine 11/24/2023 1:16 PM CDT MA AN PROCEDURE PLACEHOLDER Routine 11/24/2023 1:16 PM CDT MA AN PROCEDURE PLACEHOLDER Routine 11/24/2023 1:15 PM CDT MA AN ELECTIVE ENDOTRACHEAL AIRWAY Routine 11/24/2023 1:15 PM CDT documented in this encounter Results * MA AN PROCEDURE PLACEHOLDER (11/24/2023 1:16 PM CDT) Narrative Wagner Madison CRNA - 11/24/2023 1:16 PM CDT Wagner Madison CRNA ? 11/24/2023 ??1:17 PM Arterial Line Patient location: OR Staff: Placed by: Anesthesiologist: Amarilys Boss MD PhD Procedure prep: Prep solution: chlorhexadine/alcohol Prep: sterile gloves and provider hat/mask Arterial line: Catheter size: 20 gauge Catheter length: 1 and 3/4 inch Catheter type: wire-guided catheter Seldinger technique: no Laterality: left Site: radial artery Line secured: Tegaderm and tape Results: good waveform and good blood return Number of attempts: 1 Amarilys Boss MD PhD ANESTHESIA ORDERABLES Final R esult * MA AN PROCEDURE PLACEHOLDER (11/24/2023 1:16 PM CDT) Wagner Ruth CRNA - 11/24/2023 1:16 PM CDT Wagner Madison CRNA ? 11/24/2023 ??1:16 PM Peripheral IV Catheter Staff: Placed by: Anesthesiologist: Amarilys Boss MD PhD Preprocedure prep: Prep solution: chlorhexadine PPE: provider hat/mask and gloves PIV line: Laterality: left Site: hand Catheter size: 16 g Technique: direct visualization Procedure details: occlusive dressing applied and good blood return Number of attempts: 1 Assessment: Events: patient tolerated procedure well with no complications Result [facility] Amarilys Boss MD PhD ANESTHESIA ORDERABLES Final R esult * MA AN ELECTIVE ENDOTRACHEAL AIRWAY, MA AN PROCEDURE PLACEHOLDER (11/24/2023 1:15 PM CDT) Wagner Ruth CRNA - 11/24/2023 1:15 PM CDT Wagner Madison CRNA ? 11/24/2023 ??1:16 PM Airway Patient location: OR Urgency: elective Indications for airway management: anesthesia Difficult airway: no Staff: Supervising provider: Amarilys Boss MD PhD Placed by: FIRST AID OFFICER: Wagner Madison CRNA Emergent airway documentation: Risks and benefits discussed: yes Consent obtained: yes Consent given by: patient Airway prep: Preoxygenated: yes Patient position: sniffing MILS maintained throughout: yes Mask difficulty assessment: 0 - not attempted Spontaneous ventilation during airway: absent Sedation level during airway: GA Final airway details: Final airway type: endotracheal airway Tube type: ETT ETT size: 7.0 mm Cuffed: yes Technique used for successful ETT placement: video laryngoscopy Devices/Methods used in placement: stylet Insertion site: oral Blade type: Jason Video blade type: Alcocer Blade size: 3 Cormack-Lehane (video): grade I - full view of glottis Cuff volume: 7 mL Cuff inflated with: air ETT to lips: 22 cm Placement verified by: auscultation and CO2 detection Airway secured with: silk tape Number of attempts: 1 us Amarilys Boss MD PhD ANESTHESIA ORDERABLES Final R esult documented in this encounter Visit Diagnoses Not on filedocumented in this encounter Administered Medications Inactive Administered Medications - up to 3 most recent administrations Medication Order MAR Action Action Date Dose Rate Site ceFAZolin (ANCEF) 2,000 mg/20 mL in sterile water (premix) 2,000 mg 2,000 mg, intravenous, at 400 mL/hr, Administer over 3 Minutes, Once, On Fri11/24/23 at 1215, For 1 dose, Pre-Op, Administer within 60 minutes of incision., Indications: Prophylaxis, SurgicalIndications:Prophylaxis, Surgical Given 11/24/2023 1:39 PM CDT 2,000 mg dexAMETHasone (DECADRON) preservative free solution intralumbar, Administer over 2 Minutes, As needed, Starting on Fri11/24/23 at 1356, Anesthesia Intra-op Given 11/24/2023 1:56 PM CDT 10 mg fentaNYL (SUBLIMAZE) preservative free injection intravenous, As needed, Starting on Fri11/24/23 at 1302, Anesthesia Intra-op Given 11/24/2023 2:03 PM CDT 100 mcg Given 11/24/2023 1:18 PM CDT 100 mcg Given 11/24/2023 1:02 PM CDT 50 mcg insulin regular in 0.9% sodium chloride (MYXREDLIN) [...] 1:59 PM CDT 2 Units/hr 2 mL/hr ketamine (KETALAR) injection intravenous, Administer over 2 Minutes, As needed, Starting on Fri11/24/23 at 1629, Anesthesia Intra-op Given 11/24/2023 5:04 PM CDT 20 mg Given 11/24/2023 4:29 PM CDT 30 mg Lactated Ringer's (LR) infusion 50 mL/hr, intravenous, Continuous, Starting on Fri11/24/23 at 1315, Pre-Op New Bag 11/24/2023 12:31 PM CDT Lactated Ringer's (LR) infusion intravenous, Continuous PRN, Starting on Fri11/24/23 at 1259, Anesthesia Intra-op New Bag 11/24/2023 12:59 PM CDT lidocaine (cardiac) (XYLOCAINE) preservative free injection intravenous, As needed, Starting on Fri11/24/23 at 1248, Anesthesia Intra-op, Indications: Ventricular ArrhythmiasIndications:Ventricular Arrhythmias Given 11/24/2023 12:48 PM CDT 40 mg magnesium sulfate 2 g/50 mL in water (premix) intravenous, Administer over 60 Minutes, As needed, Starting on Fri11/24/23 at 1337, Anesthesia Intra-op Given 11/24/2023 1:37 PM CDT 2 g methadone injection syringe intravenous, As needed, Starting on Fri11/24/23 at 1259, Anesthesia Intra-op Given 11/24/2023 12:59 PM CDT 10 mg midazolam (VERSED) 2 mg/2 mL preservative free injection intravenous, Administer over 2 Minutes, As needed, Starting on Fri11/24/23 at 1231, Anesthesia Intra-op Given 11/24/2023 12:31 PM CDT 2 mg niCARdipine (CARDENE) injection intravenous, As needed, Starting on Fri11/24/23 at 1344, Anesthesia Intra-op, Indications: hypertensionIndications:hypertension Given 11/24/2023 1:44 PM CDT 200 mcg ondansetron (ZOFRAN) injection intravenous, Administer over 2 Minutes, As needed, Starting on Fri11/24/23 at 1640, Anesthesia Intra-op Given 11/24/2023 4:40 PM CDT 4 mg phenylephrine (CHELSI-SYNEPHRINE) 1 mg/10 mL (100 mcg/mL) in sodium chloride 0.9% (premix) intravenous, As needed, Starting on Fri11/24/23 at 1255, Anesthesia Intra-op Given 11/24/2023 3:11 PM CDT 50 mcg Given 11/24/2023 2:55 PM CDT 50 mcg Given 11/24/2023 2:45 PM CDT 100 mcg phenylephrine (CHELSI-SYNEPHRINE) 5 mg/50 mL (100 mcg/mL) in sodium chloride 0.9% (premix) intravenous, Continuous PRN, Starting on Fri11/24/23 at 1252, Anesthesia Intra-op Restarted 11/24/2023 5:20 PM CDT 0.2 mcg/kg/min 12.516 mL/hr Rate/Dose Change 11/24/2023 4:31 PM CDT 0.2 mcg/kg/min 12. 516 mL/hr Rate/Dose Change 11/24/2023 3:14 PM CDT 0.25 mcg/kg/min 15 .645 mL/hr propofoL (DIPRIVAN) 10 mg/mL IV intravenous, As needed, Starting on Fri11/24/23 at 1248, Anesthesia Intra-op New Bag 11/24/2023 12:48 PM CDT 130 mg propofoL (DIPRIVAN) 10 mg/mL IV intravenous, Continuous PRN, Starting on Fri11/24/23 at 1254, Anesthesia Intra-op Rate/Dose Change 11/24/2023 4:42 PM CDT 105 mcg/kg/min 65.709 mL/hr Rate/Dose Change 11/24/2023 4:26 PM CDT 115 mcg/kg/min 71. 967 mL/hr Rate/Dose Change 11/24/2023 1:40 PM CDT 125 mcg/kg/min 78. 225 mL/hr sodium chloride 0.9% infusion intravenous, Continuous PRN, Starting on Fri11/24/23 at 1259, Anesthesia Intra-op New Bag 11/24/2023 12:59 PM CDT 30 mL/hr succinylcholine syringe intravenous, As needed, Starting on Fri11/24/23 at 1249, Anesthesia Intra-op Given 11/24/2023 12:49 PM CDT 100 mg Transfuse RBC Timed New Bag 11/24/2023 4:01 PM CDT vancomycin 1500 mg/515 mL in sodium chloride 0.9% (premix) 1,500 mg 1,500 mg, intravenous, Administer over 90 Minutes, Once, On Fri11/24/23 at 1215, For 1 dose, Pre-Op, Administer within 120 minutes of incision., Indications: Prophylaxis, SurgicalIndications:Prophylaxis, Surgical Given 11/24/2023 12:31 PM CDT 1,500 mg documented in this encounter Care Teams Bread Icer Relationship Specialty Start Date End Date Lalito England [place] [address] PCP - General 08/03/19 documented as of this encounter
--- OUTSIDE RECORDS SUMMARY | 2024-07-11 22:36 | XMS_ITS | Encounter Summary ---
Author Organization [facility] Healthcare Address [address] [place] [address] Care Team Providers Care Print Support Specialist Name Role Phone Lalito England MD Primary Care Provider [phone] Reason for Referral * Cardiology (Routine) - Authorized Specialty Diagnoses / Procedures Referred By Contac t Referred To Contact Diagnoses Preoperative testing Procedures ECG 12 lead Nazario Rodriguez NP [address] [facility] [id number] [place] [address] Phone: tel: fax: [address] [phone] Referral ID Status Reason Start Date Expiration Date V isits Requested Visits Authorized [id number] Authorized 11/14/2023 12/13/2024 1 1 Encounter Details Date Type Department Care Team (Latest Contact Info) Description 11/14/2023 10:00 AM CDT Pre-Admission Testing [facility] Pre-Anesthesia Testing [id number] [place] [id number] Preoperative testing (Primary Dx); Cervicalgia Anesthesia Record Procedure Summary Procedure Name Responsible [...] 1800 Proc Fin 1800 Out of Room 1814 Handoff to RN I completed my handoff [...] disposition at the time of handoff: PACU 181 An Stop Meds * Agents No agents on file. [...] Removal Reason: Discharge 11/24/23 1205 by Maryanne Barnett RN 12/04/23 1232 by Naomy Ochoa Urethral Catheter Placement Date: 11/24/23; Placement Time: 1250; Inserted by: SEBASTIÁN Stuart; Type: Non-latex, Temperature probe; Balloon Size: 10 mL; Urine Returned: Yes; Removal Date: 11/24/23; Removal Time: 1748; Removal Reason: Disontinued in OR 11/24/23 1250 [...] Auscultation, Capnometry; Removal Date: 11/24/23; Removal Time: 1747 11/24/23 1316 by Wagner Madison, DONIS 11/24/23 1747 by Silvia Neri CRNA Peripheral IV Placement Date: 11/24/23; Placement Time: 1316 (created via procedure documentation); Catheter Size: 16 G; Orientation: Left; Location: Hand; Site Prep: Chlorhexidine; Insertion Attempts: 1; Removal Date: 11/26/23; Removal Time: 1047; Removal Reason: Per patient/family request 11/24/23 1316 by Wagner Madison, PROCESS CHECKER 11/26/23 1047 by Graciela Pink RN Arterial Line Placement Date: 11/24/23; Placemnt Time: 1317 (created via procedure documentation); Size: 20 G; Orientation: Left; Location: Radial; Securement: Taped, Transparent dressing; Removal Date: 11/25/23; Removal Time: 1230; Removal Reason: Therapy completed 11/24/23 1317 by Wagner Madison, PROCESS CHECKER 11/25/23 1230 by Svitlana Klein, SEBASTIÁN RETIRED [...] Past Smokeless Tobacco: Never Tobacco Cessation:Counseling Given: Not Answered Alcohol Use Standard Drinks/Week Comments Yes 0 [...] place to sleep or slept in a fpc (including now)? No 07/16/2022 Personal Safety Answer Date Recorded Have you ever been in or are you currently in a harmful physical or emotional relationship or is someone making you feel afraid or unsafe? 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 Gender Identity Not on file Sexual Orientation Not on file documented as of this encounter Last Filed Vital Signs Vital Sign Reading Time Taken Comments Blood Pressure 134/48 11/14/2023 10:02 AM CDT Pulse 65 11/14/2023 10:00 AM CDT Temperature - - Respiratory Rate 22 11/14/2023 10:00 AM CDT Oxygen Saturation 100% 11/14/2023 10:00 AM CDT Inhaled Oxygen Concentration - - Weight 104.3 kg (230 lb) 11/14/2023 10:00 AM CDT Height 167.6 cm (5' 6 ) 11/14/2023 10:00 AM CDT Body Mass Index 37.12 11/14/2023 10:00 AM CDT documented in this encounter Miscellaneous Notes * Perioperative Nursing Note - Susy Rodney RN - 11/14/2023 10:00 AM CDT [facility] Perioperative Nursing Note Date: 11/14/23 This assessment was completed with the patient. Vitals: 11/14/23 1000 11/14/23 1002 BP: 134/50 134/48 BP Location: Left arm Right arm Patient Position: Sitting Sitting Pulse: 65 Resp: 22 SpO2: 100% Weight: 104.3 kg (230 lb) Height: 167.6 cm (5' 6 ) CHEST CIRCUMFERENCE: n/a Social History Tobacco Use Smoking Status Never Passive exposure: Past Smokeless Tobacco Never Substance and Sexual Activity Drug Use Never Alcohol Use Q1: How often do you have a drink containing alcohol?: Never Q2: How many drinks containing alcohol do you have on a typical day when you are drinking?: Patientdoes not drink Q3: How often do you have six or more drinks on one occasion?: Never Outpatient Medications Marked as Taking for the 11/14/23 encounter (Pre-Admission Testing) with JACKIE, PRE ADMISSION TESTING RM 1 Medication Sig Dispense Refill alendronate (FOSAMAX) 70 mg tablet TAKE 1 TABLET BY MOUTH EVERY FRIDAY FOR OSTEOPOROSIS (Patient taking differently: Take 1 tablet (70 mg total) by mouth every 7 days tuesdays) 12 tablet 11 amoxicillin 500 mg capsule Take 4 tablet/capsule (2,000 mg total) by mouth Before dentist apixaban (ELIQUIS) 5 mg tablet Take 1 tablet (5 mg total) by mouth 2 (two) times a day aspirin 81 mg enteric coated tablet Take 1 tablet (81 mg total) by mouth certified orthotist/pedorthist before breakfast biotin 10,000 mcg capsule Take 1 capsule (10,000 mcg total) by mouth daily calcium carbonate-vitamin D3 500 mg(1,250mg) -400 unit tablet Take one by mouth two times per day (Patient taking differently: Take 500 mg by mouth 2 (two) times a day) 0 0 cloNIDine (CATAPRES) 0.1 mg tablet TAKE 1/2 TABLET BY MOUTH TWICE DAILY FOR HYPERTENSION (Patient taking differently: Take 1 tablet (0.1 mg total) by mouth 2 (two) times a day) 90 tablet 6 docusate sodium (COLACE) 100 mg capsule Take 1 capsule (100 mg total) by mouth 3 (three) times a day as needed for constipation Eliquis 5 mg tablet TAKE 1 TABLET BY MOUTH TWICE DAILY 60 tablet 17 fluticasone propionate (FLONASE) 50 mcg/actuation nasal spray SPRAY 2 SPRAYS INTO EACH NOSTRIL EVERY DAY 48 mL 1 fluticasone propionate (Flovent Diskus) 100 mcg/actuation diskus inhaler Inhale 1 puff 2 (two) times a day Rinse mouth with water after use. Do not swallow. (Patient taking differently: Inhale 1 puff2 (two) times a day Rinse mouth with water after use. Do not swallow.) 60 each 3 furosemide (LASIX) 20 mg tablet Take 2 tablets (40 mg total) by mouth daily 180 tablet 4 gabapentin (NEURONTIN) 100 mg capsule TAKE 1 CAPSULE BY MOUTH 3 TIMES DAILY FOR NEUROPATHY (Patienttaking differently: Take 1 capsule (100 mg total) by mouth 3 (three) times a day) 270 capsule 1 HYDROcodone-acetaminophen (NORCO) 5-325 mg per tablet Take 1 tablet by mouth every 6 (six) hours asneeded for pain 120 tablet 0 insulin aspart (NovoLOG) 100 unit/mL (3 mL) pen for injection Inject 15 Units under the skin 3 (three) times a day before meals 84 mL 2 montelukast (SINGULAIR) 10 mg tablet TAKE 1 TABLET BY MOUTH AT BEDTIME FOR ALLERGIES (Patient taking differently: Take 1 tablet (10 mg total) by mouth nightly) 90 tablet 5 Nyamyc powder Apply topically certified orthotist/pedorthist before breakfast omeprazole (PriLOSEC) 20 mg capsule TAKE 1 CAPSUEL BY MOUTH TWICE DAILY FOR GERD (Patient taking differently: Take 1 capsule (20 mg total) by mouth 2 (two) times a day) 180 capsule 5 polyethylene glycol (MIRALAX) 17 gram/dose powder Take 17 g by mouth daily (Patient taking differently: Take 17 g by mouth as needed) 850 g 1 semaglutide (Ozempic) 2 mg/dose (8 mg/3 mL) pen injector injection INJECT 2 MG SUBCUTANEOUSLY ONE TIME PER WEEK (Patient taking differently: Inject 2 mg under the skin once a week mondays) 2 mL 3 SEMGLEE-yfgn 100 unit/mL (3 mL) pen for injection Inject 20 Units under the skin nightly simvastatin (ZOCOR) 40 mg tablet TAKE 1 TABLET BY MOUTH AT BEDTIME 90 tablet 5 triamcinolone (KENALOG) 0.1 % cream Apply topically legs [DISCONTINUED] insulin glargine (LANTUS) 100 unit/mL (3 mL) pen for injection Inject 20 Units underthe skin daily 30 mL 5 Implants Type Not Specified Joint Replacements - Implanted Other - see comments As of 09/28/2018 Status: Implanted SKIN Wound (LDAs) Type of Wound (LDA): Wound SCREENINGS Pain Assessment: 0-10 Pain Score: 6 Pain Type: Chronic pain Chronic Pain Precipitating Factors: Position;Activity Chronic Pain Alleviating Factors: Medication;Relaxation;Position Pain Location: Neck Pain Orientation: Right;Left Pain Radiating Towards: towards shoulders and back Pain Descriptors: Burning;Numbness Pain Frequency: Constant/continuous Clinical Progression: Gradually worsening Pain Interventions: Home medication;Repositioned;Rest STOP-Bang Total Score: 4 Caldwell Fall Risk Score (Retired): 50 Chasity index score: 65 Have you ever been in or are you currently in a harmful physical or emotional relationship or is someone making you feel afraid or unsafe?: Denies AD8 Dementia Score: 0 Short Blessed Total Score: 0 NUTRITION DANIELS Nutrition and Function History Questionnaire Is BMI < 20?: No Have you lost any weight in the past 6 months without trying? 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 Communication Needs: None Does caregiver's language differ from patient's?: No Assistive Devices/DME: Walker, Manual wheelchair, Shower chair, Feather Duster Winder Hearing - Right Ear: Functional Hearing - Left Ear: Functional Discharge Planning Type of Residence: Private residence Living Arrangements: Alone Support Systems: Family members Assistance Needed: Augustine London (Niece) to transport and care for after Patient expects to be discharged to:: Other (Comment) (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 Cleaned with chg and H2o and then 2x2 guaze applied and gently wrapped with coban. Instrutced to put antibac ointment on at home and call md if not healing. She is to see him on fri. Ptverbalized understanding. * Pre-Procedure Instructions - Susy Rodney RN - 11/14/2023 10:00 AM CDT [facility] ([facility]) PRE-SURGICAL NURSING INSTRUCTIONS Clinic Assessment General Information Discussed with Patient: Surgery location provided to patient. Arrival time and surgical time will be provided to the patient by their surgeon. You should wear clothing that is clean, loose, comfortable and easy to get in and out of on the dayof surgery. Remove nail coverings, artificial nails and nail canadian prior to the day of surgery. You should leave your valuables and any jewelry at home. No metal or piercings are allowed in the operating room. You should bring your insurance card, a photo ID (example: Fire Prevention Engineer's License) and a method of payment for any insurance copay, deductible or copay for discharge medications. You should bring a complete, up-to-date, list of all your medications on the day of surgery, including any over the counter medications or supplements you may take. Please note on your medication list, the last date & time you took each medication. The healthcare team, on the day of surgery, will ask for this information. You should bring your Advanced Directive and/or Living Will with you on the day of surgery if you have not verified a copy is already in your Epic Chart. If you are having surgery at [facility], please arrive on the day of surgery with the name and phone number of your local 24 hour pharmacy. Due to evening discharges, your routine pharmacy may be closed. In order to obtain your prescriptions that evening, your surgeon may need to send prescriptions to this pharmacy or have you take prescriptions to this pharmacy when you are discharged. Without this information, you may not be able to obtain your prescriptions that evening. PREVENTING INFECTION (DECOLONIZATION): Decolonization is the use of a topical antiseptic soap and sometimes a nasal ointment to remove bacteria (germs) from the skin's surface. Antiseptic soap: Chlorhexidine gluconate or CHG (brand name: Hibiclens??) Before surgery, your entire body must be thoroughly cleaned. CHG helps to reduce the bacteria on your skin. You may be given one or more bottles of CHG or you may be asked to obtain from your preferred pharmacy. Be sure to ask your pharmacist if you need help finding this product. Nasal ointment: Mupirocin (brand name: Bactroban)- This will only be ordered for the 5 Day Bathing Protocol. Your surgeon may also prescribe a topical ointment that is rubbed inside each of the nostrils to reduce the bacteria in your nose. Mupirocin ointment requires a prescription. If needed, it will be prescribed by your surgeon and obtained from your preferred pharmacy. SHOWERING WITH ANTISEPTIC SOAP (CHG) What You Need For Each Shower 60 mL (?? cup) of CHG 2 clean washcloths Below is the Pre-Surgical Bathing Protocol you should follow for your surgery. If your surgeon provides you different bathing instructions, please follow your surgeon's orders. 5 Day CHG Bathing & Nasal Ointment (Mupirocin) Protocol The following bathing instructions were discussed with the patient. Patient provided detailed scrubinstructions via A Guide for Patients Having Surgery: Your Pathway to Excellent Care, pages 7-10. Patients may also access the guide via the web link: [email or web address]. Patient stated understanding of the bathing instructions. Other Important Handouts/Education Discussed with Patient: Guide for Patients Having Surgery: Your Pathway to Excellent Care. Reviewed and provided document to patient. Patient stated understanding. Safe Surgery for Patients with Obstructive Sleep Apnea/Screening brochure. Reviewed and provided document to patient. Patient stated understanding. Advanced Directive. Reviewed and provided document to patient. Patient stated understanding. Nutrition Education Handout, Fuel Up For Surgery. Reviewed and provided document to patient. Patient stated understanding. Educated patient on the need for yellow FALL RISK wrist band while attending additional [facility] appointments. Placed yellow FALL RISK wrist band on patient. Fall preventions/risk education provided. Reviewed and provided below document(s) to patient. Patient stated understanding. Safety Tips for Preventing Falls in the Hospital and at Home. Blood Thinners & Falls: Keeping You Safe. Instructions and resources on smoking cessation. Reviewed with patient. Patient stated understanding. Eye Surgery Process. Reviewed and provided document to patient. Patient stated understanding. Travel/Exposure Screening: Travel Screening Have you traveled outside the [place] in the last 6 months?: No Exposure Screening Have you been exposed to anyone who is sick in the last 30 days?: No Have you been exposed to or tested positive for COVID-19 within the last 10 days?: No Infectious Disease Screening Are you having any of the following:: None As of 05/07/2022 any COVID TESTING required for surgery will be set up by your surgeon's office. Please reach out to your surgeon's office if you develop any COVID symptoms, test positive for COVID or are exposed to a COVID positive person. All patients should read below section: COVID 19 Updates & Visitor Policy: Please access [email or web address] for the most updated information. Information on [facility]: Please view [email or web address] (Patient & Visitor Information) for additional details regarding Advanced Directive forms, AWARE, directions, parking information, lodging, Internet access, dining and more. Information on [facility] or [facility] [place] ([facility]): Please view [email or web address] (Patient and Visitor Information) for parking/directions and more. For MyChart information, to activate account or password recovery, please go to [email or web address] or call [phone] (toll-free: [phone]), Fri- Friday 8am-5pm. Information for Suicide Prevention: National Suicide Prevention Lifeline (3-440-780-RFXE (3015)) orcall or text 559. Chat resources: WorkSimple.org. Surgery Times: For patients having surgery @ [facility] or [facility] ([facility]), if your surgeon's office has not notified you of your surgery time by NOON THE BUSINESS DAY BEFORE your surgery, please call [phone] and ask for your surgeon's office Jonathan [facility] ([facility]) does not provide arrival times for the day of surgery or provide the duration of surgery. This information is provided by your surgeon'soffice or by the center where you are having surgery. We appreciate your understanding. * Pre-Procedure Instructions - Nazario Rodriguez NP - 11/14/2023 10:00 AM CDT [facility] Clinic Location: [facility] The night before your surgery: * Do not eat anything after midnight the night before your procedure. The morning of your surgery: * You may have clear liquids on your surgery day. You must stop drinking two hours before you arrive to the surgery facility. Acceptable clear liquids include water, clear sports drinks, black coffee, tea, or clear soda. DO NOT drink any milk, creamer, or alcohol. * Your surgeon's office may have provided additional instructions or restrictions. Please follow those instructions. * You may brush your teeth and rinse your mouth out. * Do not glue your dentures. * Do not wear jewelry, body piercings, makeup, hairpins, false eyelashes or contact lenses to the hospital. * Leave any valuables at home or with your family. * If you are going to be admitted after surgery at [facility], COVID testing may be performed on the day of surgery, even if you are up to date on your COVID-19 vaccine. * If having surgery at [facility], you may want to bring a credit card if you want to use our Mobile Pharmacy for your discharge medications. Mobile pharmacy is not available at [facility], the Orthopedic Center, or [facility] [facility]. If you have Diabetes: * You may also need less insulin than usual. * If your blood sugar is low before you come to the hospital, drink a small amount of sugar water or clear juice like apple or cranberry juice. DO NOT drink orange or pineapple juice. These are not clear liquids. * If you take insulin be sure to read the Medicine Instructions. * Please call your surgeon and/or the CPAP Clinic if you have any questions. Instructions For Your Medications: Pre-Surgery Instructions: Medication Instructions alendronate (FOSAMAX) 70 mg tablet Don't take on day of surgery amoxicillin 500 mg capsule Don't take on day of surgery apixaban (ELIQUIS) 5 mg tablet Follow your surgeon's instructions aspirin 81 mg enteric coated tablet Follow your surgeon's instructions biotin 10,000 mcg capsule Don't take on day of surgery calcium carbonate-vitamin D3 500 mg(1,250mg) -400 unit tablet Don't take on day of surgery cloNIDine (CATAPRES) 0.1 mg tablet Take morning of surgery docusate sodium (COLACE) 100 mg capsule Don't take on day of surgery fluticasone propionate (FLONASE) 50 mcg/actuation nasal spray Take on day of surgery if needed fluticasone propionate (Flovent Diskus) 100 mcg/actuation diskus inhaler Take morning of surgery furosemide (LASIX) 20 mg tablet Don't take on day of surgery gabapentin (NEURONTIN) 100 mg capsule Take morning of surgery HYDROcodone-acetaminophen (NORCO) 5-325 mg per tablet Take on day of surgery if needed insulin aspart (NovoLOG) 100 unit/mL (3 mL) pen for injection Don't take on day of surgery montelukast (SINGULAIR) 10 mg tablet Don't take on day of surgery Nyamyc powder Don't take on day of surgery omeprazole (PriLOSEC) 20 mg capsule Take morning of surgery polyethylene glycol (MIRALAX) 17 gram/dose powder Don't take on day of surgery semaglutide (Ozempic) 2 mg/dose (8 mg/3 mL) pen injector injection Stop taking 1 week prior to surgery SEMGLEE-yfgn 100 unit/mL (3 mL) pen for injection Take 16 units the night before simvastatin (ZOCOR) 40 mg tablet Take the night before as prescribed triamcinolone (KENALOG) 0.1 % cream Don't take on day of surgery albuterol HFA (PROVENTIL HFA,VENTOLIN HFA,PROAIR HFA) 90 mcg/actuation inhaler Take on day of surgery if needed finasteride (PROSCAR) 5 mg tablet Don't take on day of surgery melatonin 3 mg tablet,disintegrating Stop taking 1 week prior to surgery mupirocin (BACTROBAN) 2 % ointment Follow your surgeon's instructions naloxone (NARCAN) 4 mg/actuation spray,non-aerosol Take on day of surgery if needed General Instructions For Medications: * Stop all of these medications 5 days prior to your surgery: excedrin, motrin, advil, ibuprofen, aleve, naproxen, meloxicam, celebrex, celecoxib. For medications that you are instructed to take on the morning of surgery, take the medications with a few sips of water. Stop all of these medications 7-14 days prior to your surgery: Vitamin E, Herbal medicines, Diet Pills If you have pain, you may take tylenol (acetaminophen). Do not take more than 6 tablets or 3000 mg (3 g) within a 24 period. Call your surgeon and the CPAP clinic if any of the following happens before surgery: Any changes in your health You have a fever You have any signs of an infection (chest, urinary tract or tooth) You have been to the Emergency Room or were in the hospital You have started taking any new medications You have questions about a bowel prep or special diet before surgery You have symptoms of COVID-19 such as a new or worsening cough, shortness of breath, fever, body aches, loss of taste or smell, diarrhea or vomiting, or sore throat. You have a household contact with COVID-19. You test positive for COVID-19. documented in this encounter Plan of Treatment Not on file documented as of this encounter Procedures Procedure Name Priority Date/Time Associated Diagnosis Comments ECG 12-LEAD Routine 11/14/2023 11:02 AM CDT Preoperative testing documented in this encounter Results * TYPE AND SCREEN 14 DAY (11/14/2023 12:26 PM CDT) Janeth, indirect Negative ABO Rh B Positive [facility] Blood 11/14/2023 12:2 6 PM CDT 11/14/2023 4:12 PM CDT Narrative [facility] - 11/14/2023 5:18 PM CDT Is this test being ordered in advance for a procedure?->Yes Expected date of procedure:->11/24/23 Has the patient been transfused in the past 3 months?->No Has the patient been in the past 3 months?->No Nazario Rodriguez NP LAB BLOOD BANK TEST ORDERABLES Final Result Performing Organization Address [facility] Co de Phone Number ANN [facility] Department [place] [address] * ECG 12 lead (11/14/2023 11:02 AM CDT) 11/14/2023 11:0 2 AM CDT Narrative [facility] - 11/14/2023 3:08 PM CDT Vent Rate: 61 bpm RR Interval: 972 msec VA Interval: 178 msec QRS Duration: 94 msec QT Interval: 377 msec QTC Interval: 381 msec P-R-T [place]: 59 - 14 - 30 degrees IMPRESSION: SINUS RHYTHM LOW QRS VOLTAGE IN PRECORDIAL LEADS BORDERLINE ECG COMPARED WITH ECG DATED 22-DEC-2015, NO SIGNIFICANT CHANGE Electronically Signed By: Altaf Washington ?? Nazario Rodriguez NP ECG ORDERABLES Fin al Result Performing Organization Address [facility] de Phone Number [facility] [employer] [facility] documented in this encounter Visit Diagnoses Diagnosis Preoperative testing Unspecified pre-operative examination Preoperative testing- Primary Unspecified pre-operative examination Cervicalgia documented in this encounter Discontinued Medications Medication Sig Discontinue Reason Start Date End Da te insulin glargine (LANTUS) 100 unit/mL (3 mL) pen for injection Inject 20 Units under the skin daily Alternate therapy 05/26/2023 11/14/2023 Eliquis 5 mg tablet TAKE 1 TABLET BY MOUTH TWICE DAILY Duplicate order 05/26/2023 11/14/2023 documented as of this encounter Historical Medications * This list may reflect changes made after this encounter. docusate sodium (COLACE) 100 mg capsule Take 1 capsule (100 mg total) by mouth 3 (three) times a day as needed for constipation added in this encounter Care Teams Print Support Specialist Relationship Specialty Start Date End Date Lalito England MD [address] [place] [address] PCP - General 08/03/19 documented as of this encounter
--- OUTSIDE RECORDS SUMMARY | 2024-07-11 22:36 | XMS_ITS | Encounter Summary ---
Author Organization [facility] Address [address] [facility] [address] [place] [address] Phone Care Team Providers Care Manager Fine Name Role Phone Lalito England MD Primary Care Provider [phone] Reason for Visit * Consultation (Routine) - Authorized Specialty Diagnoses / Procedures Referred By Giuliana t Referred To Contact Neurosurgery Diagnoses Degenerative cervical spinal stenosis Lalito England MD [address] [place] [address] Phone: tel: fax: Brennan Castillo MD [address] [place] [address] Phone: tel: fax: Referral ID Status Reason Start Date Expiration Date Visits Requested Visits Authorized [id number] Authorized Specialty Services Required 08/14/2023 09/12/2024 12 12 Encounter Details Date Type Department Care Team (Late st Contact Info) Description 10/08/2023 11:30 AM CDT Office Visit [facility] Neurosurgery [facility] Medical Office Building [address] [place] [address] Brennan Castillo MD [address] [place] [address] Degenerative cervical spinal stenosis (Primary [...] in a penitentiary (including now)? 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 Gender Identity Not on file Sexual Orientation Not on file documented as of this encounter Last Filed Vital Signs Vital Sign Reading Time Taken Comments Blood Pressure - - Pulse - - Temperature - - Respiratory Rate - - Oxygen Saturation - - Inhaled Oxygen Concentration - - Weight 103.5 kg (228 lb 3.2 oz) 024 11:26 AM CDT Height 168.9 cm (5' 6.5 ) 10/08/2023 11 :26 AM CDT Body Mass Index 36.28 10/08/2023 11:26 AM CDT documented in this encounter Progress Notes * Brennan Castillo MD - 10/08/2023 11:30 AM CDT History of Presenting Complaint: - Patient presents with concerns regarding cervical myelopathy, as referred by Dr. Lizbet Cali. - Reports worsening numbness and tingling in hands, particularly in the fingertips of the right hand, which is used more frequently. - Describes worsening dexterity and fine motor skills, difficulty with tasks such as buttoning shirts, tying shoes, and opening jars. - Experiences bad neck pain without shooting electrical arm pain but mentions a burning sensation from shoulder to shoulder. - Balance has worsened, and patient is currently walker-dependent, having used it since before backsurgery in January 2022. - Patient has been informed by another doctor that neck surgery is necessary to prevent further deterioration, which could lead to an inability to walk. Past Medical History: - Type 2 diabetes mellitus. - Osteoporosis. - History of deep vein thrombosis (DVT), currently on Eliquis since approximately January 2022. - Underwent back surgery in March 2022, during which Eliquis was temporarily discontinued. - Previous anterior C3 to C7 fusion performed by Dr. Tovar in 2007 and decompression at L4, L5 by Dr. Block in 2022. - Medications include Eliquis, aspirin 81, and insulin for diabetes management. - No reported weight loss with current diabetes medication. Physical Examination: - Vitals signs not documented in the transcript. - Physical examination reveals intrinsic muscle weakness in hands, graded as 4 minus out of 5. - Handgrip strength also 4 minus out of 5. - Upper extremity strength preserved in deltoids, biceps, and triceps. - Lower extremity examination shows hip flexor weakness, more pronounced on the right side (4 minusout of 5) compared to the left side (4 out of 5). - Left-sided dorsiflexion of the foot is weak (4 out of 5), while plantar flexors show good strength (4 plus out of 5). - Patient is extremely unsteady on feet and requires a walker for mobility. Impression & Plan: Cervical Myelopathy - Impression: Cervical myelopathy confirmed by symptoms and physical examination findings. - Differential diagnosis not discussed. - Investigations planned: Review of MRI of the thoracic spine to be conducted before surgery. - Treatment planned: Surgical intervention from the posterior approach to decompress the spinal cord and nerve roots at C6, C7, T1, and T2 levels. Fusion to stabilize the spine is also planned. - Relevant referrals: Coordination with primary care physician Dr. Lalito England for perioperative management of Eliquis. Referral to physical therapy and rehabilitation post-surgery. - Additional notes: Patient to undergo melanoma excision on October 26, which takes precedence overspinal surgery. Spinal surgery to be scheduled 8 to 10 weeks after melanoma excision, with a plan to discontinue Eliquis 1 week prior and 2 weeks post-surgery. Patient likely to require inpatient rehabilitation postoperatively due to living alone and current mobility issues. Patient and family advised to arrange for support during the recovery process. Patient educated on the risks of surgery, including potential wound healing issues due to diabetes, age, and anatomical considerations. documented in this encounter Plan of Treatment Not on file documented as of this encounter Visit Diagnoses Diagnosis Degenerative cervical spinal stenosis- Primary Spinal stenosis in cervical region documented in this encounter Care Teams Manager Fine Relationship Specialty Start Date End Date Lalito England MD [address] [place] [address] PCP - General 08/03/19 documented as of this encounter
--- OUTSIDE RECORDS SUMMARY | 2024-07-11 22:36 | XMS_ITS | Encounter Summary ---
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
--- OUTSIDE RECORDS SUMMARY | 2024-07-11 22:36 | XMS_ITS | Encounter Summary ---
Author Organization [facility] Healthcare Address [address] [place] [address] Care Team Providers Care Arm Maker Name Role Phone Lalito England MD Primary Care Provider [phone] [phone] Encounter Details Date Type Department Care Team (Latest Contact Info) Description 09/16/2023 8:40 AM LICENSED FUNERAL DIRECTOR - 09/16/2023 11:59 PM LICENSED FUNERAL DIRECTOR Hospital Encounter [facility] [address] [place] [address] Degenerative cervical spinal stenosis Discharge Disposition: Discharge [...] in a chcf (including now)? No 07/16/2022 Personal Safety Answer Date Recorded Getting School Help Needed Not on file 06/28 Comments No Sex and Gender Information Value Date Recorded Sex Assigned at Not on file Legal Sex Female 11:52 PM LICENSED FUNERAL DIRECTOR Gender Identity Not on file Sexual [...] of insulin ([facility]) Inject 15 Units under the skin 3 [...] 1 tablet (81 mg total) by mouth signal supervisor before breakfast 11/28/19 24 biotin 10,000 mcg [...] Date/Time Associated Diagnosis Comments XR SPINE CERVICAL COMPLETE 4 OR 5 VW Schedule Routine, Read Routine (OP Routine) 09/16/2023 8:52 AM LICENSED FUNERAL DIRECTOR Degenerative cervical spinal stenosis documented in this encounter Results * XR Spine Cervical Complete 4 or 5 Views (09/16/2023 8:52 AM LICENSED FUNERAL DIRECTOR) Anatomical Region Laterality Modality Spine N/A Computed Radiogr aphy 09/16/2023 9:35 AM LICENSED FUNERAL DIRECTOR Impressions 09/16/2023 10:14 AM LICENSED FUNERAL DIRECTOR 1. Changes of C3-C7 anterior cervical discectomy with mature bony fusion across these levels. 2. Multilevel bilateral osseous neuroforaminal narrowing. Dictated by: Clayton Lagos MD The radiology attending physician has personally reviewed this study, and had reviewed and/or edited this written report and agrees with it. Electronically signed by: Jim Elizabeth MD Narrative 09/16/2023 10:14 AM LICENSED FUNERAL DIRECTOR EXAMINATION: XR SPINE CERVICAL COMPLETE 4 OR [...] it. Electronically signed by: Jim Elizabeth MD Lizbet Stewart AD COMPOSITOR IMG XR PROCEDURES Final Re sult documented in this encounter Visit Diagnoses Diagnosis Degenerative cervical spinal stenosis Spinal stenosis in cervical region documented in this encounter Care Teams Arm Maker Relationship Specialty Start Date End Date Lalito England MD [address] [place] [address] PCP - General 08/03/19 documented as of this encounter
--- OUTSIDE RECORDS SUMMARY | 2024-07-11 22:36 | XMS_ITS | Encounter Summary ---
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 CLE MESSENGER * Telephone Encounter - Jose C Keenan - 09/08/2023 3:57 PM CST Pt called to check to see if her Referral. I informed pt that her referral was received. CLE MESSENGER * Telephone Encounter - Micki Howard - 08/18/2023 7:53 AM CST Physical therapy records scanned into chart CLE MESSENGER * Telephone Encounter - Savannah Porter - 08/15/2023 11:32 AM CST Department of Neurological Surgery at [facility] Spine Intake 08/15/23 [address] 1950 [id number] Lalito England MD Are you a New or Returning Pt? new Referring physician Other: LALITO ENGLAND Referred to: Dr. Castillo Second Opinion: Yes Insurance: Commercial Insurance: Name of Plan [facility] Are we contracted? Yes Does this insurance require an insurance auth from the PCP? Yes Litigation: No Has the patient had spinal surgery within the last year? No Diagnosis: Degenerative Disc Disease and Spinal Stenosis Location (Spinal Area): Cervical Imaging Done within Last Year: Yes List ALL MRI: Month May 2023 & 2023 Imaging Location: [facility] FAX Records Requested: In [facility] HT: 5'6 WT: 218 BMI: 35.2 Weakness: Yes Numbness: Yes Spinal Pain: Dull pain & sharp pain in neck , arms, and lower back Incontinence: No Duration of symptoms: Before 2021 Spine surgery - within last 10 years: Yes , mar 23 2022, lower back surgery Location: [facility] - [id number] FAX - [phone] Records Requested: Yes Physical therapy within last year Yes Location: [facility] [id number] FAX - [phone] Records Requested: Yes Pain Management (Injections) within last year No Are you a current smoker: No Reason for visit: New Pt Appt Date:09/16/2023 Time: 9:30AM Location: [facility] Provider MARKOS Stewart Routed: Directly to BLAST FURNACE HELPER Remind pt to arrive 45 min early for xrays: Yes Patient Informed about possible wait time to be seen by Providers: Yes ???Please expect your total visit time to be approximately 2-4 hours for a new patient visit or surgical consultation. This time will involve x-ray imaging, processing, interpretation, evaluation by Providers team, and consultation with Doctor. Please expect that during this time you may be waitingin between x-rays, evaluation by Provider's team, and consultation with Doctor. This wait time is necessary for a thorough review, analysis, and interpretation of your clinical history, radiological studies, current condition, and formulation of a clinical plan. We ask for your patience and know that while you are waiting, your care is being actively planned?? CLE MESSENGER * Telephone Encounter - Savannah Porter - 08/15/2023 10:25 AM CST WQ referral Called pt to schedule appt, pt requested to callback after 30min. Diagnosis: Degenerative cervical spinal stenosis (M48.02) CLE MESSENGER documented in this encounter Plan of Treatment Not on file documented as of this encounter Visit Diagnoses Not on filedocumented in this encounter Care Teams Boxing Instructor Relationship Specialty Start Date End Date Lalito England MD [address] [place] [address] PCP - General 08/03/19 documented as of this encounter
--- OUTSIDE RECORDS SUMMARY | 2024-07-11 22:36 | XMS_ITS | Encounter Summary ---
Author Organization [facility] Address [address] [place] [address] Phone Care Team Providers Care Export Manager Name Role Phone Lalito England MD Primary Care Provider [phone] [phone] Encounter Details Date Type Department Care Team (Late st Contact Info) Description 10/17/2023 Orders Only [facility] Neurosurgery [address] [facility] [place] Advanced Medicine 6th [place] [address] [place] [id number] Brennan Castillo MD [address] [place] [address] Social History Tobacco Use Types [...] in a alf (including now)? 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 Gender Identity Not on file Sexual Orientation Not on file documented as of this encounter Ordered Prescriptions Prescription Sig Dispense Quantity Refills Last Filled Start Date End Date mupirocin (BACTROBAN) 2 % ointment Apply to nares BID starting 5 days prior to surgery ending the day prior 22 g 10/17/2023 4 documented in this encounter Plan of Treatment Not on file documented as of this encounter Visit Diagnoses Not on filedocumented in this encounter Care Teams Export Manager Relationship Specialty Start Date End Date Lalito England MD [address] [place] [address] PCP - General 08/03/19 documented as of this encounter
--- OUTSIDE RECORDS SUMMARY | 2024-07-11 22:36 | XMS_ITS | Encounter Summary ---
Author Organization [facility] Address [address] [place] [address] Care Team Providers Care Pipe Organ Mechanic Apprentice Name Role Phone Lalito England MD Primary Care Provider [phone] Encounter Details Date Type Department Care Team (Late st Contact Info) Description 09/17/2023 11:55 AM PEWTER FABRICATOR Lab [facility] [address] [place] [id number] Controlled type 2 diabetes mellitus with diabetic polyneuropathy, without long-term current use of insulin (CMS/HCC) (HCC); Type 2 diabetes mellitus with stage 3b chronic kidney disease, with long-term current use of insulin (HCC); Encounter for Medicare annual wellness exam Social History Tobacco Use Types Packs/Day Years [...] on file Legal Sex Female 11:52 PM PEWTER FABRICATOR Gender Identity Not on file Sexual Orientation Not on file documented as of this encounter Plan of Treatment Not on file documented as of this encounter Procedures Procedure Name Priority Date/Time Associated Diagnosis Comments EGFR Routine 09/17/2023 11:54 AM PEWTER FABRICATOR Controlled type 2 diabetes mellitus with diabetic polyneuropathy, without long-term current use of insulin (CMS/HCC) (HCC) Type 2 diabetes mellitus with stage 3b chronic kidney disease, with long-term current use of insulin (HCC) Encounter for Medicare annual wellness exam DIFFERENTIAL AUTO Routine 09/17/2023 11: 54 AM PEWTER FABRICATOR Controlled type 2 diabetes mellitus with diabetic polyneuropathy, without long-term current use of insulin (CMS/HCC) (HCC) Type 2 diabetes mellitus with stage 3b chronic kidney disease, with long-term current use of insulin (HCC) Encounter for Medicare annual wellness exam CBC WITH AUTO DIFFERENTIAL Routine 09/17/2023 11:54 AM PEWTER FABRICATOR Controlled type 2 diabetes mellitus with diabetic polyneuropathy, without long-term current use of insulin (CMS/HCC) (HCC) Type 2 diabetes mellitus with stage 3b chronic kidney disease, with long-term current use of insulin ([facility]) Encounter for Medicare annual wellness exam HEMOGLOBIN A1C Routine 09/17/2023 11:54 AM PEWTER FABRICATOR Controlled type 2 diabetes mellitus with diabetic polyneuropathy, without long-term current use of insulin (CMS/HCC) (HCC) Type 2 diabetes mellitus with stage 3b chronic kidney disease, with long-term current use of insulin ([facility]) Encounter for Medicare annual wellness exam LIPID PANEL Routine 09/17/2023 11:54 AM PEWTER FABRICATOR Controlled type 2 diabetes mellitus with diabetic polyneuropathy, without long-term current use of insulin (CMS/HCC) (HCC) Type 2 diabetes mellitus with stage 3b chronic kidney disease, with long-term current use of insulin ([facility]) Encounter for Medicare annual wellness exam COMPREHENSIVE METABOLIC PANEL Routine 09/17/2023 11:54 AM PEWTER FABRICATOR Controlled type 2 diabetes mellitus with diabetic polyneuropathy, without long-term current use of insulin (CMS/HCC) (HCC) Type 2 diabetes mellitus with stage 3b chronic kidney disease, with long-term current use of insulin ([facility]) Encounter for Medicare annual wellness exam documented in this encounter Results * eGFR (09/17/2023 11:54 AM PEWTER FABRICATOR) [facility] eGFR 28 mL/min/1. 73 m2 Comment: Interpretive Data Reference Interval Normal ?>/= 90 mL/min/1.73m2 Mildly decreased* ? 60 - 89 mL/min/1.73m2 Mildly to moderately decreased ?45 - 59 mL/min/1.73m2 Moderately to severely decreased ??30 - 44 mL/min/1.73m2 Severely decreased ?15 - 29 mL/min/1.73m2 Kidney Failure ?< 15 ??mL/min/1.73m2 *Relative to young adult level Estimated glomerular filtration rate is determined by the 2021 CKD-EPI equation recommended by the National Kidney [...] was last reviewed 2021. Testing performed by: [address], [address] Blood 09/17/2023 11:5 4 AM PEWTER FABRICATOR 09/17/2023 6:15 PM PEWTER FABRICATOR us Sarah Carter NP LAB BLOOD ORDERABLES Final Result ANN CUADRA ([place]) 1 [facility] [place] [address] * Differential, auto (09/17/2023 11:54 AM PEWTER FABRICATOR) Neutrophil abs 5.5 1.5 - 6.5 K/cumm Comment:Testing performed by : [facility], [address] [place] [address], [address] Imm gran abs 0.0 0.0 - 0.1 K/cumm [facility] ([place]) Comment:Testing performed by : [address] [address] Lymphocyte abs 1.4 0.8 - 3.3 K/cumm [facility] ([place]) Comment:Testing performed by : [address], [address] Monocyte abs 0.5 0.2 - 0.8 K/cumm [facility] ([place]) Comment:Testing performed by : [address], [address] Eosinophil abs 0.2 0.0 - 0.5 K/cumm [facility] ([place]) Comment:Testing performed by : [address], [address] Basophil abs 0.1 0.0 - 0.1 K/cumm [facility] ([place]) Comment:Testing performed by : [address], [place]., [address] Neutrophil pct 72.0 % [facility] ([place]) Comment: Interpretive Data Percent cell count reference ranges are not reported, since discordance with absolute values may lead to misinterpretation of CBC data. Current Interpretive Data was last revised on 2017. Testing performed by: [facility], [address] [place] [address]., [address] Imm gran pct 0.3 % [facility] ([place]) Comment: Interpretive Data Percent cell count reference ranges are not reported, since discordance with absolute values may lead to misinterpretation of CBC data. Current Interpretive Data was last revised on 2017. Testing performed by: [address] [address] Lymphocyte pct 17.6 % [facility] ([place]) Comment: Interpretive Data Percent cell count reference ranges are not reported, since discordance with absolute values may lead to misinterpretation of CBC data. Current Interpretive Data was last revised on 2017. Testing performed by: [facility], [address] [place] [address]., [address] Monocyte pct 7.0 % [facility] ([place]) Comment: Interpretive Data Percent cell count reference ranges are not reported, since discordance with absolute values may lead to misinterpretation of CBC data. Current Interpretive Data was last revised on 2017. Testing performed by: [address] [address] Eosinophil pct 2.2 % [facility] ([place]) Comment: Interpretive Data Percent cell count reference ranges are not reported, since discordance with absolute values may lead to misinterpretation of CBC data. Current Interpretive Data was last revised on 2017. Testing performed by: [address] [address] Basophil pct 0.9 % [facility] ([place]) Comment: Interpretive Data Percent cell count reference ranges are not reported, since discordance with absolute values may lead to misinterpretation of CBC data. Current Interpretive Data was last revised on 2017. Testing performed by: [address] [address] Blood 09/17/2023 11:5 4 AM PEWTER FABRICATOR 09/17/2023 5:50 PM PEWTER FABRICATOR Sarah Carter NP LAB BLOOD ORDERABLES Final Result Performing Organization Address [facility] Co de Phone Number ANN CUADRA ([place]) [address] [place] [address] * (ABNORMAL) Hemoglobin A1c (09/17/2023 11:54 AM PEWTER FABRICATOR) Hgb A1C 8.9(H) 4.0 - 5.6 % Comment:Testing performed by : [facility], [address] [place] [address]., [address] Estimated Average Glucose 209 mg/dL ANN CUADRA ([place]) Comment: The ADA recommends reporting an estimated Average Glucose (eAG) with all Hemoglobin A1c results using the equation derived from a study of 507 normal and diabetic adults. ??Minority populations were underrepresented and children were not included. ?? (Diabetes Care 31:5892-0743, 2008). ??The eAG is not equivalent to a fasting glucose. Testing performed by: [facility], [address] [place] [address]., [address] Blood 09/17/2023 11:5 4 AM PEWTER FABRICATOR 09/17/2023 5:50 PM PEWTER FABRICATOR us Sarah Carter NP LAB BLOOD ORDERABLES Final Result Performing Organization Address [facility] de Phone Number ANN CUADRA ([place]) 1 [facility] [place] [address] * Lipid panel (09/17/2023 11:54 AM PEWTER FABRICATOR) Cholesterol 134 30 - 199 mg/dL Comment: [...] last revised on 2018. Testing performed by: [facility], [address] [place] [address]., [address] Triglycerides 121 <=149 mg/dL ANN CUADRA ([place]) [...] last revised on 2018. Testing performed by: [facility], [address] [place] [address]., [address] HDL 45 >=40 mg/dL ANN [place]) Comment: [...] last revised on 2018. Testing performed by: [facility], [address] [place] [address]., [address] LDL, calculated 65 <=129 mg/dL ANN CUADRA [...] last revised on 2018. Testing performed by: [facility], [address] [place] [address]., [address] Non-HDL Cholesterol 89 mg/dL ANN CUADRA ([place]) [...] last revised on 2018. Testing performed by: [facility], [address] [place] [address], [address] Chol/HDL ratio 3 [facility] ([place]) Comment:Testing performed by : [address], [address] Blood 09/17/2023 11:5 4 AM PEWTER FABRICATOR 09/17/2023 5:50 PM PEWTER FABRICATOR Sarah Carter NP LAB BLOOD ORDERABLES Final Result [facility] ([place]) 1 [facility] [place] [address] * (ABNORMAL) CBC with auto differential (09/17/2023 11:54 AM PEWTER FABRICATOR) WBC 7.7 3.8 - 9.9 K/cumm Comment:Testing performed by : [address], [address] Hgb 9.4(L) 11.9 - 15.5 g/dL [facility] ([place]) Comment:Testing performed by : [address], [address] Hct 32.4(L) 35.6 - 45.5 % [facility] ([place]) Comment:Testing performed by : [address], [address] Plt 231 150 - 400 K/cumm [facility] ([place]) Comment:Testing performed by : [address], [address] MPV 10.2 9.1 - 12.3 fL [facility] ([place]) Comment:Testing performed by : [address], [address] RBC 3.77(L) 3.90 - 5.20 M/cumm [facility] ([place]) Comment:Testing performed by : [address], [address] MCV 85.9 81.3 - 96.4 fL [facility] ([place]) Comment:Testing performed by : [address], [address] MCH 24.9(L) 27.1 - 33.3 pg [facility] ([place]) Comment:Testing performed by : [facility], [address] [place] [address], [address] MCHC 29.0(L) 32.3 - 35.7 g/dL [facility] ([place]) Comment:Testing performed by : [address], [address] RDW CV 15.4(H) 11.1 - 14.9 % [facility] ([place]) Comment:Testing performed by : [facility], [address] [place] [address], [address] RDW SD 48.4(H) 35.7 - 48.1 fL [facility] ([place]) Comment:Testing performed by : [address], [address] NRBC abs 0.00 0.00 - 0.01 K/cumm [facility] ([place]) Comment:Testing performed by : [address], [address] Blood 09/17/2023 11:5 4 AM PEWTER FABRICATOR 09/17/2023 5:50 PM PEWTER FABRICATOR Sarah Carter NP LAB BLOOD ORDERABLES Final Result [facility] ([place]) 1 [facility] [place] [address] * (ABNORMAL) Comprehensive metabolic panel (09/17/2023 11:54 AM PEWTER FABRICATOR) Sodium 140 135 - 145 mmol/L Comment:Testing performed by : [address], [address] Potassium, pl 3.6 3.3 - 4.9 mmol/L [facility] ([place]) Comment:Testing performed by : [address], [address] Chloride 100 97 - 110 mmol/L [facility] ([place]) Comment:Testing performed by : [address], [address] CO2 26 22 - 32 mmol/L [facility] ([place]) Comment:Testing performed by : [address] [address] Anion gap 14 2 - 15 mmol/L [facility] ([place]) Comment:Testing performed by : [address] [address] BUN 25 6 - 25 mg/dL [facility] ([place]) Comment:Testing performed by : [address], [address] Creatinine 1.84(H) 0.60 - 1.10 mg/dL [facility] ([place]) Comment:Testing performed by : [address], [address] Glucose 143 70 - 199 mg/dL C[facility]ER [...] was last revised 2022. Testing performed by: [address], [address] Calcium 9.8 8.5 - 10.3 mg/dL [facility] ([place]) Comment:Testing performed by : [address] [address] Bilirubin, total 0.4 0.1 - 1.2 mg/dL [facility] ([place]) Comment:Testing performed by : [address] [address] Protein, pl 7.4 6.5 - 8.5 g/dL [facility] ([place]) Comment:Testing performed by : [address], [address] Albumin 3.8 3.5 - 5.0 g/dL [facility] ([place]) Comment:Testing performed by : [facility], [address], [place]., [address] Alk phos 64 40 - 130 Units/L [facility] ([place]) Comment:Testing performed by : [facility], [address] [place] [address]., [address] ALT 21 7 - 45 Units/L [facility] ([place]) Comment:Testing performed by : [facility], [address] [place] [address]., [address] AST 31 10 - 45 Units/L [facility] ([place]) Comment:Testing performed by : [facility], [address] [place] [address]., [address] Blood 09/17/2023 11:5 4 AM PEWTER FABRICATOR 09/17/2023 5:50 PM PEWTER FABRICATOR Sarah Carter CRATE BUILDER LAB BLOOD ORDERABLES Final Result [facility] ([place]) 1 [facility] [place] [address] documented in this encounter Visit Diagnoses Diagnosis Controlled type 2 diabetes mellitus with diabetic polyneuropathy, without long- term current use of insulin (HCC) Type 2 diabetes mellitus with stage 3b chronic kidney disease, with long-term current use of insulin (HCC) Encounter for Medicare annual wellness exam documented in this encounter Care Teams Pipe Organ Mechanic Apprentice Relationship Specialty Start Date End Date Lalito England MD [address] [place] [address] PCP - General 08/03/19 documented as of this encounter
--- OUTSIDE RECORDS SUMMARY | 2024-07-11 22:36 | XMS_ITS | Encounter Summary ---
Author Organization [facility] Address [address] [place] [address] Care Team Providers Care Kick Plate Installer Name Role Phone Lalito England MD Primary Care Provider [phone] Reason for Visit * Auth/Cert (Routine) Specialty Diagnoses / Procedures Referred By Contac t Referred To Contact Diagnoses Cervicalgia Cervicalgia [M54.2] Procedures GA ARTHRODESIS POSTERIOR/POSTERIORLATERAL CERVICAL BELOW C2 GA LIND FACETECTOMY & FORAMOTOMY 1 VRT SGM CERVICAL GA ARTHRD PST/PSTLAT TQ 1NTRSPC CRV BELW C2 SEGMENT GA ARTHRODESIS PST/PSTLAT TQ 1NTRSPC EA ADDL NTRSPC GA ARTHRODESIS PST/PSTLAT TQ 1NTRSPC EA ADDL NTRSPC GA POSTERIOR SEGMENTAL INSTRUMENTATION 3-6 VRT SEG GA AUTOGRAFT SPINE SURGERY LOCAL FROM SAME INCISION GA ALLOGRAFT FOR SPINE SURGERY ONLY MORSELIZED FUSION CERVICAL/THORACIC - POSTERIOR WITH INSTRUMENTATION; C6-T2 posterior spinal fusion with a C7-T1 decompression and bilateral foraminotomies SPINAL CORD MONITORING FORAMINOTOMY CERVICAL - POSTERIOR; C6-T2 posterior spinal fusion with a C7-T1 decompression and bilateral foraminotomies Referral ID Status Reason Start Date Expiration Date Visits Re quested Visits Authorized [id number] 1 1 Encounter Details Date Type Department Care Team (Late st Contact Info) Description 11/24/2023 2:10 PM CDT - 11/24/2023 8:25 PM CDT Surgery [facility] Operating Room [address] [place] [address] Brennan Castillo MD [address] [place] [address] FUSION CERVICAL/THORACIC - POSTERIOR WITH INSTRUMENTATION C5-T2 posterior spinal fusion with a C5-T2 decompression and bilateral foraminotomies Surgery Details Date/Time Status Location OR Service Patient Class Case Class Case Type Trauma Case? 11/24/2023 2:10 PM Posted [facility] OR POD 5 235 Neurosurgery Surgery Admit Elective Panel 1 Procedure LRB Anes Op Region Wound Class Comments FUSION CERVICAL/THORACIC - POSTERIOR WITH INSTRUMENTATION C5-T2 posterior spinal fusion with a C5-T2 decompression and bilateral foraminotomies N/A General Class I - Clean SPINAL CORD MONITORING N/A Choice Cl ass II - Clean Contaminated FORAMINOTOMY CERVICAL - POSTERIOR C5-T2 posterior spinal fusion with a C5-T2 decompression and bilateral foraminotomies Bilateral General Spine Cervical Class I - Clean Surgeon Surgeon Role Service Panel Brennan Castillo MD Primary Neurosurgery 1 Karely Wilkes MD PhD Resident - Assisting Neuro surgery Spine 1 Case Notes 11/09@1405- Per [place] via case msg move to follow in other block- [facility] documented in this encounter Social History Tobacco [...] on file Legal Sex Female 11:52 PM LAST SCOURER Gender Identity Not on file Sexual Orientation Not on file documented as of this encounter Last Filed Vital Signs Vital Sign Reading Time Taken Comments Blood Pressure 164/74 11/24/2023 8:00 PM CDT Pulse 98 11/24/2023 8:20 PM CDT Temperature 36.1 ??C (97 ??F) 11/24/2023 8:15 PM CDT Respiratory Rate 15 11/24/2023 8:20 PM CDT Oxygen Saturation 91% 11/24/2023 8:20 PM CDT Inhaled Oxygen Concentration - - Weight - - Height - - Body Mass Index - - documented in this encounter Discharge Summaries * Jef Rock NP - 12/04/2023 2:19 PM CDT Images from the original note were not included. Spine Inpatient Discharge Summary Admitting Provider: Brennan Castillo MD Discharge Provider: Brennan Castillo MD Primary Care Physician at Discharge: Lalito England MD [phone] Admission Date: 11/24/2023 Discharge Date: 12/04/2023 Primary [...] Hospital Course Criss Ly was admitted to [facility] on 11/24/23. 11/23 OR for C5-T2 PCDF. POC ok. 11/24 MAP goal liberalized, TTF. Garcia replaced due to urinary retention. 11/25 muscle relaxers added. OT rec SNF. XR done. 11/26 BLE edema--home lasix restarted, maintenance fluids dc'd, chest XR pending, wound consult for skin integrity BLE, garcia dc'd voiding. 11/27 [place] adjusted. Enema ordered 11/28 Worked with [...] Therapy recommendations: Inpatient rehabilitation Incision: Prineo Brace: [place] collar at all times Surgical drains: [...] c/d/I with aquacel Drain x1 holding suction [place] collar in place Discharge Condition: Good [...] NS 02/09/2024 9:15 AM Lalito England MD [facility] 02/24/2024 11:30 AM Irma Mittal NP [facility] 03/24/2024 12:45 PM Mark Pickett MD [facility] 05/19/2024 12:15 PM Mark Pickett MD [facility] 05/26/2024 1:30 PM Sarah Carter, [facility] Chem/LFT Lab History Latest Ref Rng & [...] 1 tablet (81 mg total) 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 Do not restart until [...] known as: NARCAN Nyamyc powder Apply topically post tronic machine operator before breakfast Generic drug: nystatin omeprazole 20 [...] says it's OK. -Do not do any harness racing handicapper that cause you to twist, push or [...] says it's OK. -Do not do any harness racing handicapper that cause you to twist, push or [...] blood pressure), call your family doctor or grinder set up operator thread tool. You will be given a prescription for [...] 1 tablet (81 mg total) 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 Do not restart until [...] long-term current use of insulin ([facility]) Inject 15 Units under the skin [...] use. Do not swallow. 60 each 3 06/26/202 3 12/29/19 24 furosemide (LASIX) 20 mg [...] 4 04/14/20 24 Nyamyc powder Apply topically post tronic machine operator before breakfast 4 05/26/20 24 omeprazole [...] 1 tablet (81 mg total) 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 Do not restart until [...] Comment s Discharge to an Rehab facility [facility] documented in this encounter Progress Notes * Madelaine Scott, RN - 12/04/2023 12:43 PM CDT 12/04/23 1211 Discharge Summary Discharge Disposition Acute Rehab Specify Facility [facility] Facility Contact Number [phone] Albert Lewis Discharge Records Transfer Form Completed;Chart Copied Discharge Additional Assistance Does the patient need discharge transport arranged? Yes Type of Transportation Ambulance Has discharge transport been arranged? Yes Details of Transportation [facility] [phone], trip # [id number] D/C Transport Anticipated Date 12/04/23 D/C Transport Anticipated Time 1700 Per medical team, patient is medically stable for discharge at this time. [facility]. Insurance authorization has been obtained. CM [...] Patient/family informed patient may require ambulance transport. publication manager informed patient/family that even if the patient's insurance benefit includes ambulance transport, it may not cover the full cost of the transportation. The patient may be responsible for any [id number] cost, includingmileage beyond the nearest appropriate facility. Patient/family voiced understanding. No further case management needs identified at this time * Erick Viera, MOBILE MECHANIC - 12/04/2023 9:46 AM CDT Physical Therapy [...] treatment team and contact the PT or MOBILE MECHANIC currently assigned to this patient. If a physical therapy clinician is not assigned to this patient, please call [phone]. 12/04/23 4627 PT Last Visit Session Type Treatment PT Received On 12/04/23 Safe Environment Arm band checked;Patient found sitting in chair Subjective Agreeable to Therapy Family/Caregiver Present No Precautions Precautions Cervical spine Braces/Orthoses Cervical collar ([place]) Precaution Comments Verbally reviewed precautions prior [...] Type Ankle pumps;Hip flexion;Long arc quads;ABduction;ADduction Reps/Sets 10/1 Seated-Motion AROM Seated-Exercise Comments Pt. completed seated therapeutic exercises for increased strength, balance, and tolerance of functional activitiy. By completing these pre-gait activities, the patient is providing a cardiovascular warm up and assisting in maintaining joint integrity. Standing Standing-Exercises Lower extremity;Specific exercises Standing-Exercise Type Squats;Tap ups Reps/Sets 10/1 Standing-Motion AROM Standing-Exercise Comments Pt. completed standing [...] skin integrity BLE, garcia dc'd voiding. 11/27 [place] adjusted. Enema ordered 11/28 Worked with [...] c/d/I with aquacel Drain x1 holding suction [place] collar in place Vitals 24hr min/max [...] 30 mg subcutaneous Daily-2099 famotidine (PEPCID) tablet 10 mg 10 mg [...] mg/mL (33.3 mg/mL as elemental magnesium) oral [id number] mL 30 mL oral Daily PRN 30 [...] or you are unable to reach the HEALTH CARE LIAISON or resident team, please page the Neurosurgery Call Pager at [phone]. Note created by Fredy Portillo MD PhD on 12/04/2023 at 6:23 AM. Cosigned by Brennan Castillo MD at 12/05/2023 1:02 PM CDT * JoelGaboJuarezStan, OT - 12/03/2023 10:52 AM CDT Occupational [...] not assigned to this patient, please call [phone]. 12/03/23 1052 General Session Type Treatment OT [...] skin integrity BLE, garcia dc'd voiding. 11/27 [place] adjusted. Enema ordered 11/28 Worked with [...] c/d/I with aquacel Drain x1 holding suction [place] collar in place Vitals 24hr min/max [...] mg/mL (33.3 mg/mL as elemental magnesium) oral [id number] mL 30 mL oral Daily PRN 30 [...] or you are unable to reach the HEALTH CARE LIAISON or resident team, please page the Neurosurgery Call Pager at [phone]. Note created by Fredy Portillo MD PhD [...] is progressing nicely, goals updated. * Stan Johnson OT - 12/02/2023 12:59 PM CDT Occupational [...] not assigned to this patient, please call [phone]. 12/02/23 1259 General Session Type Treatment OT Received On 12/02/23 Safe Environment Patient found in supine;Arm band checked;Gait belt utilized for all out of bed mobility Subjective Agreeable to Therapy Family/Caregiver Present No Precautions Precautions Cervical spine Weight Bearing Restrictions No Braces/Orthoses Cervical collar ([place] donned for entire session) Precaution Handout [...] treatment team and contact the PT or MOBILE MECHANIC currently assigned to this patient. If a physical therapy clinician is not assigned to this patient, please call [phone]. 05/21/24 1220 PT Last Visit Session Type Treatment PT Received On 12/02/23 Safe Environment Arm band checked;Patient found sitting in chair;Gait belt utilized for all out of bed mobility Subjective Agreeable to Therapy Family/Caregiver Present No Precautions Precautions Cervical spine Braces/Orthoses Cervical collar ([place] donned throughout) Precaution Comments Verbally reviewed [...] Type Ankle pumps;Hip flexion;Long arc quads;ABduction;ADduction Reps/Sets 10/1 Seated-Motion AROM Seated-Exercise Comments Pt. completed seated [...] skin integrity BLE, garcia dc'd voiding. 11/27 [place] adjusted. Enema ordered 11/28 Worked with PT/OT. 11/29 Fluid bolus for DORINA. 11/30 Dressing changed. Subjective no complaints and pain well controlled Objective Physical Exam Awake, alert, regards, follows commands Oriented x3 PERRL, gaze conjugate, face symmetric BUE 4+ D 11/15 B/T 4- HG/IH BLE 4- HF 4+ KE/KF 4 DF/PF/EHL Incision c/d/I with aquacel Drain x1 holding suction [place] collar in place Vitals 24hr min/max [...] mg/mL (33.3 mg/mL as elemental magnesium) oral [id number] mL 30 mL oral Daily PRN 30 [...] or you are unable to reach the HEALTH CARE LIAISON or resident team, please page the Neurosurgery Call Pager at [phone]. Note created by Karely Wilkes MD PhD on 12/02/2023 at 6:57 AM. Cosigned by Brennan Castillo MD at 12/03/2023 9:30 AM CDT * Tessie Robertson, BRANDON - 12/01/2023 8:53 PM CDT NUTRITION ASSESSMENT [...] HX OTHER MEDICAL PMO HX OTHER MEDICAL PROPERTY DAMAGE CLAIMS ADJUSTOR HX OTHER MEDICAL [facility] OA HX OTHER MEDICAL 2008 Discectomy, cervical HX OTHER MEDICAL Fall HX OTHER MEDICAL Left proximal femoral Gamma Nail fixation proximal; Comments: [facility] 07/25/2015 - HX OTHER MEDICAL RTKR 2001.; Comments: [facility] 07/25/2015 - HX OTHER MEDICAL LTKR 2005.; Comments: [facility] 07/25/2015 - HX OTHER MEDICAL Back surgery 2006.; Comments: [facility] 07/25/2015 - HX OTHER MEDICAL Cervical disc surg. 2007.; Comments: [facility] 07/25/2015 - HX OTHER MEDICAL Breast reduction 2008.; Comments: [facility] 07/25/2015 - HX OTHER MEDICAL left [...] BUN SERUM mg/dL 26* CREATININE mg/dL 1.60* [id number] mL/min/1.73 m2 34* CALCIUM mg/dL 9.6 Recent Labs Lab Units 12/01/23203112/01/23 1705 12/01/23 1154 12/01/23 0741 12/01/23 0316 [...] Orders (From admission, onward) Start Ordered 12/01/23 1714 Oral Nutrition Supplements ([facility]) Select Supplement: Glucerna Shake - Jermaine All Meals Question: ([facility]) Select Supplement: Answer: Glucerna Shake - Jermaine 12/01/23 1713 11/25/23 08 Adult Diet Restricted; Consistent Carbohydrate Diet effective now Question Answer Comment ([facility]) Diet type Restricted Diabetic: Consistent Carbohydrate 11/25/23 [...] Weight changes Tessie Robertson MS RD LD #[phone] * Erick Viera PTA - 12/01/2023 11:31 AM CDT [...] treatment team and contact the PT or MOBILE MECHANIC currently assigned to this patient. If a physical therapy clinician is not assigned to this patient, please call [phone]. 12/01/23 1131 PT Last Visit Session Type Treatment PT Received On 12/01/23 Safe Environment Arm band checked;Patient found sitting in chair;Gait belt not utilized, see comment Subjective Agreeable to Therapy Family/Caregiver Present No Precautions Precautions Cervical spine Braces/Orthoses Cervical collar ([place] donjammie throughout) Precaution Comments Verbally reviewed precautions prior [...] not assigned to this patient, please call [phone]. 12/01/23 0806 General Session Type Treatment OT Received On 12/01/23 Safe Environment Arm band checked;Patient found in supine;Gait belt utilized for all out of bed mobility Subjective Agreeable to Therapy Family/Caregiver Present No Precautions Precautions Fall risk;Cervical spine Weight Bearing Restrictions No Braces/Orthoses Cervical collar ([place] donned for entire session) Precaution Handout Issued [...] skin integrity BLE, garcia dc'd voiding. 11/27 [place] adjusted. Enema ordered 11/28 Worked with PT/OT. 11/29 Fluid bolus for DORINA. Subjective no complaints and pain well controlled Objective Physical Exam Awake, alert, regards, follows commands Oriented x3 PERRL, gaze conjugate, face symmetric BUE 4+ D 11/15 B/T 4- HG/IH BLE 4- HF 4+ KE/KF 4 DF/PF/EHL Incision c/d/I with aquacel Drain x1 holding suction [place] collar in place Vitals 24hr min/max [...] mg/mL (33.3 mg/mL as elemental magnesium) oral [id number] mL 30 mL oral Daily PRN 30 [...] or you are unable to reach the HEALTH CARE LIAISON or resident team, please page the Neurosurgery Call Pager at [phone]. Note created by Karely Wilkes MD PhD [...] skin integrity BLE, garcia dc'd voiding. 11/27 [place] adjusted. Enema ordered 11/28 Worked with PT/OT. Subjective no complaints and pain well controlled Objective Physical Exam Awake, alert, regards, follows commands Oriented x3 PERRL, gaze conjugate, face symmetric BUE 4+ D 11/15 B/T 4- HG/IH BLE 4- HF 4+ KE/KF 4 DF/PF/EHL Incision c/d/I with aquacel Drain x1 holding suction [place] collar in place Vitals 24hr min/max [...] mg/mL (33.3 mg/mL as elemental magnesium) oral rekzuobpvb70 mL 30 mL oral Daily PRN 30 [...] started 11/27) DVT prophylaxis: lovenox Responsible Team Kareyl Wilkes MD PhD Aum For any questions or concerns, please contact the nurse practitioner signed in to the chart. If youare unable to reach them, you may contact the residents as listed. If it is after 6pm or you are unable to reach the HEALTH CARE LIAISON or resident team, please page the Neurosurgery Call Pager at [phone]. Note created by Karely Wilkes MD PhD [...] skin integrity BLE, garcia dc'd voiding. 11/27 [place] adjusted. Enema ordered Subjective no complaints and pain well controlled Objective Physical Exam Awake, alert, regards, follows commands Oriented x3 PERRL, gaze conjugate, face symmetric BUE 4+ D 11/15 B/T 4- HG/IH BLE 4- HF 4+ KE/KF 4 DF/PF/EHL Incision c/d/I with aquacel Drain x1 holding suction [place] collar in place Vitals 24hr min/max [...] mg/mL (33.3 mg/mL as elemental magnesium) oral [id number] mL 30 mL oral Daily PRN 30 [...] with home regimen wound recs; leave legs INSIDE SALES PROFESSIONAL Drain x1 () Dispo: [facility] (auth started 11/27) DVT prophylaxis: lovenox Responsible Team Spine For any questions or concerns, please contact the nurse practitioner signed in to the chart. If youare unable to reach them, you may contact the residents as listed. If it is after 6pm or you are unable to reach the HEALTH CARE LIAISON or resident team, please page the Neurosurgery Call Pager at [phone]. Note created by Naomy Chavez MD on 11/29/2023 at 8:37 AM. Cosigned by Brennan Castillo MD at 11/30/2023 9:48 AM CDT * Janel Norwood, MOBILE MECHANIC - 11/29/2023 8:06 AM CDT Physical Therapy [...] treatment team and contact the PT or MOBILE MECHANIC currently assigned to this patient. If a physical therapy clinician is not assigned to this patient, please call [phone]. 11/29/23 0806 PT Last Visit Session Type [...] c/d/I with aquacel Drain x1 holding suction [place] collar in place Vitals 24hr min/max vitals: Temp Min: 36.3 ??C (97.4 ??F) Max: 37.1 ??C (98.7 ??F) Pulse Min: 64 Max: 73 Resp Min: 14 Max: 16 SpO2 Min: 93 % Max: 100 % MAP (mmHg) Min: 73 Max: 89 Intake and Output I/O last 2 completed shifts: In: 2114 [P.O.:2100; I.V.:15] Out: 3805 [Urine:3658; Drains:147] Medications [...] Recommendation: Long-Term Facility Assessment/Plan Hospital Day: 5 Cirss Ly is a 73 y.o. year old female who presented with cervical myelopathy (especially R hand). 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 If youare unable to reach them, you may contact the residents as listed. If it is after 6pm or you are unable to reach the HEALTH CARE LIAISON or resident team, please page the Neurosurgery Call Pager at [phone]. Note created by Karely Wilkes MD PhD [...] treatment team and contact the PT or MOBILE MECHANIC currently assigned to this patient. If a physical therapy clinician is not assigned to this patient, please call [phone]. 11/27/23 1625 PT Last Visit Session Type Treatment PT [...] Weight Bearing Restrictions No Braces/Orthoses Cervical collar ([place] cervical collar on) Precaution Handout Issued No [...] not assigned to this patient, please call [phone]. 11/27/23 0902 General Session Type Treatment OT Received On 11/27/23 Safe Environment Arm band checked;Patient found in supine;Gait belt utilized for all out of bed mobility Subjective Agreeable to Therapy Family/Caregiver Present No Precautions Precautions Fall risk;Cervical spine Weight Bearing Restrictions No Braces/Orthoses Cervical collar ([place]) Precaution Handout Issued No Precaution Comments [...] c/d/I with aquacel Drain x1 holding suction [place] collar in place Garcia in place [...] use, DM (A1c 7.6), melanoma Plan PT/OT Yfn garcia Blood glucose control Marcia Blandon at all times Drain x1 DVT prophylaxis: lovenox Responsible Team Karely Wilkes MD/PhD Eliana Andrew MD/PhD For any questions or concerns, please contact the nurse practitioner signed in to the chart. If youare unable to reach them, you may contact the residents as listed. If it is after 6pm or you are unable to reach the HEALTH CARE LIAISON or resident team, please page the Neurosurgery Call Pager at [phone]. Note created by Karely Wilkes MD PhD on 11/27/2023 at 7:57 AM. Cosigned by Bernnan Castillo MD at 11/27/2023 12:08 PM CDT [...] treatment team and contact the PT or MOBILE MECHANIC currently assigned to this patient. If a physical therapy clinician is not assigned to this patient, please call [phone]. 11/26/23 8059 General Chart Reviewed Yes Session Type Evaluation [...] Weight Bearing Restrictions No Braces/Orthoses Cervical collar ([facility] cervical collar on) Precaution Handout Issued No Home Living Type of Home House Home Layout One level;Performs ADLs on one level;Able to live on main level with bedroom/bathroom Home Access Ramped entrance Home Mobility Equipment-Available 4-Wheeled walker;Wheelchair-manual;Lift Chair Home Mobility Equipment-Currently Using 4-Wheeled walker;Lift Chair;Wheelchair-manual Prior Function Level of [place] Independent with ADLs;Independent with wheelchair;Independent functional transfers Lives With Alone Receives Help From Spouse/Significant other (very limited assistance from a family member) Fall within the last 6 months No Activity Tolerance Endurance Tolerates 30 min activity with multiple rests Pain Assessment Pain Assessment 0-10 Pain Score 5 - Moderate pain Pain Interventions Repositioned;Elevated;RN Notified (RNGabo Owens) Cognition Arousal/Alertness Alert;Appropriate responses to stimuli Attention [...] Pertinent History Attempted to see patient, a [facility] Physician was in theroom talking to the [...] not assigned to this patient, please call [phone]. 11/26/23 1386 General Chart Reviewed Yes Session Type Evaluation OT Received On 11/26/23 Safe Environment Arm band checked;Patient found in supine;Gait belt utilized for all out of bed mobility Subjective Agreeable to Therapy Family/Caregiver Present No Precautions Precautions Fall risk;Spinal/Back Braces/Orthoses Cervical collar (Marcia Blandon donjammie for entire session) Precaution Handout Issued No [...] mobility at baseline. 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 Operator Moderate (Pt sister brings bills over then [...] Orientation Posterior Pain Interventions Repositioned;RN Notified (SEBASTIÁN Owens) Cognition Overall Cognitive Status WFL Arousal/Alertness Alert;Appropriate [...] name and address after me David Braden [address] [place] [address] Without looking at the clock, tell me [...] c/d/I with aquacel Drain x1 holding suction [place] collar in place Garcia in place [...] 7.6), melanoma Plan PT/OT Blood glucose control [place] at all times Drain x1 Cervical XR DVT prophylaxis: lovenox Responsible Team Karely Wilkes MD/PhD Eliana Andrew MD/PhD For any questions or concerns, please contact the nurse practitioner signed in to the chart. If youare unable to reach them, you may contact the residents as listed. If it is after 6pm or you are unable to reach the HEALTH CARE LIAISON or resident team, please page the Neurosurgery Call Pager at [phone]. Note created by Karely Wilkes MD PhD [...] KE/KF 4 DF/PF/EHL Drain x1 holding suction [place] collar on place Inicision dressed, c/d/I Plan, Given stable exam with MAP goal liberalized, we will plan to liberalize to Q4 neurologic checks. [place] transfer to [id number] Spine floor Rupesh Reza MD * Karely [...] c/d/I with aquacel Drain x1 holding suction [place] collar in place Garcia in place Vitals [...] noon if exam stable Blood glucose control Marcia Blandon at all times Drain x1 Cervical XR DVT prophylaxis: lovenox Responsible Team Karely Wilkes MD/PhD Eliana Andrew MD/PhD For any questions or concerns, please contact the nurse practitioner signed in to the chart. If youare unable to reach them, you may contact the residents as listed. If it is after 6pm or you are unable to reach the HEALTH CARE LIAISON or resident team, please page the Neurosurgery Call Pager at [phone]. Note created by Karely Wilkes MD PhD [...] c/d/I with aquacel Drain x1 holding suction [place] collar in place Garcia in place If there are any issues or questions, please use the Neurosurgery Call pager at [phone] Mohit Abel MD * Karely Wilkes MD PhD - 11/24/2023 5:54 PM CDT Neurosurgery Immediate Post Op PACU/ICU Note Surgeon: Dr. Castillo Procedure: C5-T2 PCDF Exam: Recently extubated Opens eyes to voice, regards, follows commands Oriented to self PERRL, gaze conjugate, face symmetric BUE >3/5 throughout BLE >3/5 throughout Incision c/d/I with aquacel Drain x1 holding suction [place] collar in place Plan: Admit/transfer to ICU Diet: Advance as tolerated Antibiotics: Ancef & Vancomycin x 24hrs Activity Restrictions: cervical collar at all times Imaging required: Cervical Spine Xrays MAP >100 Glucose <120 Hgb >10, Platelets >100 Void check by midnight If there are any issues or questions, please page Karely Wilkes MD PhD at [phone]. If itis after 6pm, please use the Neurosurgery Call pager at [phone] Karely Wilkes MD PhD * Karely Wilkes [...] AM CDT Source Note - Markus Cabezas HEALTH CARE LIAISON - 11/14/2023 10:33 AM CDT Images from the original note were not included. 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 Reports kidney function is monitored by PCP. Baseline Cr 1.5-1.8 Musculoskeletal/Pain + Chronic pain + Chronic opioid use (Takes 3 [place] per day) - daily. + Osteoarthritis Endocrine [...] therapy when feasible in the postoperative period. [employer] staff message sent to surgeon's office. Please call the CPAP chart room clinician ([phone]) with any questions. The patient is on [...] be used in the interim if acceptable. [employer] [facility] staff message sent to surgeon's office. Please call the CPAP chart room clinician ([phone]) to revisit risk assessment, with any questions, [...] right upper extremity including shoulder (HCC) 11/10/2023 ??? Melanoma of right upper arm (HCC) 10/27/2023 ??? BMI 39.0-39.9,adult 10/05/2023 ??? Chronic anticoagulation 10/05/2023 ??? Family history of colon cancer in father 05/27/2023 ??? Encounter for screening colonoscopy 05/27/2023 ??? Personal history of COVID-19 02/18/2022 ??? Acute embolism and thrombosis of right femoral vein (HCC) 01/18/2022 ??? Age-related osteoporosis without current pathological fracture 01/18/2022 ??? Difficulty in walking, not elsewhere classified 01/18/2022 ??? Gastro-esophageal reflux disease without esophagitis 01/18/2022 ??? Hypertension secondary to endocrine disorders 01/18/2022 ??? Spinal stenosis, lumbar region without neurogenic claudication 01/18/2022 ??? Type 2 diabetes mellitus with diabetic neuropathy, unspecified ([facility]) 01/18/2022 ??? Unsteadiness on feet 01/18/2022 ??? Type 2 diabetes mellitus with hyperlipidemia ([facility]) 01/17/2022 ??? Chronic back pain 01/17/2022 ??? Weakness of both lower extremities 01/16/2022 ??? Lumbar radiculopathy 12/06/2021 ??? Sacroiliitis ([facility]) 09/07/2021 ??? Cervicalgia 09/07/2021 ??? Low back pain 09/07/2021 ??? Insomnia secondary to chronic pain 09/07/2021 ??? Degenerative cervical spinal stenosis 09/07/2021 ??? Degenerative disc disease, cervical 09/07/2021 ??? CKD (chronic kidney disease) stage 4, GFR 15-29 ml/min (CMS/HCC) ([facility]) 08/23/2021 ??? Morbid (severe) obesity due to excess calories ([facility]) 08/22/2021 ??? DDD (degenerative disc disease), lumbar [...] of colon 04/08/2015 ??? Sarcoidosis of lung ([facility]) 04/08/2015 ??? Fever 08/25/2014 ??? Type 2 diabetes mellitus with stage 3 chronic kidney disease, with long-term current use of insulin ([facility]) 11/27/2013 ??? Severe obesity (BMI 35.0-39.9) with comorbidity ([facility]) 11/27/2013 ??? Hyperlipidemia 04/01/2012 ??? Disorder of peripheral nervous system (CMS/HCC) 04/01/2012 ??? Hypertension associated with diabetes ([facility]) 04/01/2012 Past Medical History: Diagnosis Date ??? Asthma ??? Benign hypertension with CKD (chronic kidney disease) stage III ([facility]) ??? Gastroesophageal reflux disease GERD ??? HX OTHER MEDICAL PMO ??? HX OTHER MEDICAL PROPERTY DAMAGE CLAIMS ADJUSTOR ??? HX OTHER MEDICAL [facility] OA ??? HX OTHER MEDICAL 2008 Discectomy, cervical ??? HX OTHER MEDICAL Fall ??? HX OTHER MEDICAL Left proximal femoral Gamma Nail fixation proximal; Comments: J 07/25/2015 - ??? HX OTHER MEDICAL RTKR 2002.; Comments: J 07/25/2015 - ??? HX OTHER MEDICAL LTKR 2006.; Comments: J 07/25/2015 - ??? HX OTHER MEDICAL Back surgery 2007.; Comments: J 07/25/2015 - ??? HX OTHER MEDICAL Cervical disc surg. 2008.; Comments: J 07/25/2015 - ??? HX OTHER MEDICAL Breast reduction 2009.; Comments: J 07/25/2015 - ??? HX OTHER MEDICAL left [...] 500 mg capsule Past Month 09/04/23 -- ProviderSofiya MD apixaban (ELIQUIS) 5 mg tablet 11/14/2023 -- -- Sofiya Gibbons MD aspirin 81 mg enteric coated tablet 11/14/2023 -- -- ProviderSofiya MD biotin 10,000 mcg capsule Past Month -- -- ProviderSofiya MD blood glucose diagnostic (Contour Next Test Strips) strip -- 09/11/23 -- Lalito England MD TEST BLOOD SUGAR 3 TIMES A DAY AND WILL MONTIOR RESPONSE. DX: E11.22. blood-glucose meter (CONTOUR NEXT USB METER[place] [facility] [place] Clayton [...] a day before meals lancets (MICROLET LANCET[place] [facility] [facility] [place] -- Clayton [...] Pen Needle) 31 gauge x 16 needle Social History Tobacco Use Smoking Status [...] of C7 on T1 anterior subluxation with [id number] abutment of the endplates, sclerosis and severe [...] Ly, 73 y.o. female (: 1950) Room: [place] [address] [address] ( ) LOS: 2 Consult Question: diabetes [...] 1718 11/26/23 1153 11/26/23 0809 11/26/23 0122 11/25/23 2007 11/25/23 1641 11/25/23 1207 11/25/23 0959 11/25/23 0855 11/25/23 0804 POC GLUCOSE MONITOR mg/dL 208* 169 157 185 217* 181 165 138 122 128 Lab Results Component Value Date HGBA1C 7.6 (H) 11/14/2023 PMH & PSH She has a past medical history of Asthma, Benign hypertension with CKD (chronic kidney disease) stage III ([facility]), Gastroesophageal reflux disease, OTHER MEDICAL, OTHER MEDICAL, OTHER MEDICAL, OTHER MEDICAL (2007), OTHER MEDICAL, OTHER MEDICAL, OTHER MEDICAL, OTHER MEDICAL, OTHER MEDICAL, OTHER MEDICAL, OTHER MEDICAL, OTHER MEDICAL, OTHER MEDICAL, Hyperlipidemia, Hypertension, Lumbar stenosis, Osteoarthritis, Osteoporosis, Polyp of colon, Sarcoidosis, Type 2 diabetes mellitus ([facility]), Type 2 diabetes mellitus with diabetic autonomic (poly)neuropathy ([facility]), Type 2 diabetes mellitus with hyperglycemia (CMS/HCC) ([facility]), and Type II diabetes mellitus with stage 3 chronic kidney disease ([facility]). She has a past surgical history [...] labs, imaging, and diagnostics independently reviewed in [facility] and commented on below. Lab Results Component [...] comorbidities: <7 Diabetes Provider: PCP Insurance: Payor: [employer] HE[employer]CARE / Plan: [employer] HEALTHCARE / Product Type: MEDICARE RISK OTHER/ [...] Surgical fellow at bedside and per Dr. Castillo new goal map 65. documented in this encounter Miscellaneous Notes * Plan of Care - Naomy Ochoa - 12/04/2023 11:04 AM CDT Problem: Lack of Knowledge Goal: Ability to develop a pain control plan will improve 12/04/20231103 by Naomy Ochoa Outcome: [...] working to decrease the patient's pain levels 12/04/20231103 by Naomy Ochoa Outcome: Progressing 12/04/20231103 [...] in meeting health care needs will improve 12/04/2023 1104 by Naomy Ochoa Outcome: Progressing 12/04/2023 1104 by Naomy Ochoa Outcome: Progressing Flowsheets (Taken 12/04/2023 1000) Identification of resources available to assist in meeting health care needs will improve: Collaborate with pain management Collaborate with all therapies Problem: Skin Integrity Impairment Risk Goal: Mobility will improve 12/04/2023 1104 by Naomy Ochoa [...] Risk for impaired skin integrity will decrease 12/04/2023 110 by Naomy Ochoa Outcome: Progressing [...] decrease the risk of falls will improve 12/04/2023 110 by Naomy Ochoa [...] remain free from injury from falls 12/04/2023 1104 by Naomy Ochoa Outcome: Progressing 12/04/2023 110 [...] related to Diabetes will improve: Collaborate with soil expert for diabetes evaluation and/or teaching Instruct on counting carbohydrates Discuss information on weight management Discuss benefits of regular exercise as it is related to blood glucose lowering effect and overall weight loss goals Problem: Neurosensory Goal: Achieves stable or improved neurological status 12/04/2023 110 by Naomy Ochoa Outcome: Progressing 12/04/2023 110 by Naomy Ochoa Outcome: Progressing Goal: Absence of seizures 12/04/2023 110 by Naomy Ochoa Outcome: Progressing 12/04/2023 110 by Naomy Ochoa Outcome: Progressing Goal: Remains free of injury related to seizures activity 12/04/2023 110 by Naomy Ochoa Outcome: Progressing [...] 12/04/2023 1104 by Naomy Ochoa Outcome: Progressing Problem: Skin/Tissue [...] drain sites healing without S/S of infection 12/04/20231103 by Naomy Ochoa Outcome: Progressing 12/04/20231103 by Naomy Ochoa Outcome: Progressing Flowsheets (Taken 12/04/2023 1000) Incision(s), Wound(s) or Drain Site(s) healing without S/S of infection: Assess and document risk factors for pressure injury development Assess and document skin integrity Assess and document dressing/incision, wound bed, drain sites and surrounding tissue Implement wound care per orders Goal: Oral mucous membranes remain intact Description: 12/04/20231103 by Naomy Ochoa Outcome: Progressing 12/04/20231103 by Naomy Ochoa Outcome: Progressing Flowsheets (Taken 12/04/2023 1000) Oral mucous membranes remain intact: Assess oral mucosa and hygiene practices Implement preventative oral hygiene regimen Problem: Musculoskeletal Goal: Return mobility to safest level of function 12/04/20231103 by Naomy Ochoa Outcome: Progressing 12/04/20231103 [...] Maintain proper alignment of affected body part 12/04/20231103 by Naomy Ochoa Outcome: Progressing 12/04/20231103 by Naomy Ochoa Outcome: Progressing Flowsheets (Taken 12/04/2023 1000) Maintain proper alignment of affected body part: Support and protect limb and body alignment per provider's orders Instruct and reinforce with patient and family use of appropriate assistive device and precautions (e.g. spinal or hip dislocation precautions) Goal: Return ADL status to a safe level of function 12/04/20231103 by Naomy Ochoa Outcome: Progressing 12/04/20231103 [...] 12/04/20231103 by Naomy Ochoa Outcome: Progressing 12/04/2023 1104 by Naomy Ochoa Outcome: Progressing Flowsheets (Taken 12/04/2023 1000) Ability to perform activities at highest level will improve: Implement use of braces, orthotics Provide diversional activities Goal: Mobility, ROM and muscle strength will improve 12/04/2023 1104 by Naomy Ochoa [...] Ambulate. Pain well managed. Hoping to discharge [facility] Patient Centered Goal for Treatment: Awaiting placement [...] bed availability Plan & referrals made/in place: [facility] following. Per Radha, bed may not be availabletoday, however beds will be available 12/04. Patient's Identified Problem/Goal Problem: Ensure acute medical needs are met and patient has a safe discharge plan. Goal: Secure a discharge plan that patient/family are agreeable with and ensure patient has continuum of care. Braille Coder will continue to follow and assist with [...] VS and I & O, pain management [facility] Goal for Treatment: Awaiting placement [...] and ensure patient has continuum of care. Braille Coder will continue to follow and assist with [...] management, ambulate as tolerated, Monitor drain output Glass Mould Cleaner Patient Centered Goal for Treatment: Awaiting insurance [...] yearly or sooner as indicated by your office support specialist Pending results for primary service or primary care physician to follow up on: none Follow Up Plan: Primary Care Provider Dr England. Appointment date: February 09, 2024 at 9:15 AM * Consults, Subsequent - Radha Ragland NP - 12/02/2023 1:21 PM CDT Endocrinology & Diabetes Progress Note Patient: Criss Ly, 73 y.o. female (: 1950) Room: [id number] ( ) LOS: 8 Criss Ly is [...] labs, imaging, and diagnostics independently reviewed in [facility] and commented on below. Lab Results Component [...] comorbidities: <7 Diabetes Provider: PCP Insurance: Payor: [employer] HEALTHCARE / Plan: [employer] / Product Type: MEDICARE RISK OTHER/ Home [...] & Lipid Research Contact Info: New Consults: [phone]) General Endocrine (Non-Diabetes): [phone] (Check 'Treatment Team' assignment for Diabetes 1 vs 2 vs 3 vs 4) Diabetes After-Hours & Weekends: Diabetes Fellow [phone] or [phone] Cosigned by Natalya Barrera MD at 12/08/2023 12:07 PM CDT Associated attestation - Natalya Barrera MD - 12/08/2023 12:07 PM CDT I have reviewed this note for the purpose of clinical review of HEALTH CARE LIAISON/PA activities. I have not provided any direct patient care for this patient. * Plan of Care - Marie Caruso RN - 12/02/2023 10:54 AM CDT [phone] to determine if insurance auth appeal has been approved yet. Appeal is still pending. * Consults, Subsequent - Radha Ragland NP - 12/01/2023 2:41 PM CDT Endocrinology & Diabetes Progress Note Patient: Criss Ly, 73 y.o. female (: 1950) Room: [id number] ( ) LOS: 7 Criss Ly is [...] Units 12/01/23 1154 12/01/23 0741 12/01/23 0316 11/30/230 11/30/23202811/30/23 1636 11/30/23 1204 11/30/23 0756 11/30/23 0156 [...] comorbidities: <7 Diabetes Provider: PCP Insurance: Payor: [employer] HEALTHCARE / Plan: [employer] / Product Type: MEDICARE RISK OTHER/ Home [...] & Lipid Research Contact Info: New Consults: [phone]) General Endocrine (Non-Diabetes): [phone] (Check 'Treatment Team' assignment for Diabetes 1 vs 2 vs 3 vs 4) Diabetes After-Hours & Weekends: Diabetes Fellow [phone] or [phone] Cosigned by Natalya Barrera MD at 12/08/2023 12:07 PM CDT Associated attestation - Natalya Barrera MD - 12/08/2023 12:07 PM CDT I have reviewed this note for the purpose of clinical review of HEALTH CARE LIAISON/PA activities. I have not provided any direct patient care for this patient. * Plan of Care - Marie Caruso RN - 12/01/2023 9:52 AM CDT [facility] [phone] to determine if insurance auth has been [...] , pain control with oxycodone, Pt had mechoopda J, Pt able to tolerated ambulating with [...] integrity will decrease Outcome: Progressing Flowsheets (Taken 11/30/2023 0000) Risk for impaired skin integrity will decrease: Identify risk factors for impaired skin integrity and/or pressure injuries Monitor skin integrity, appearance and temperature Problem: Fall Risk Goal: Ability to state ways to decrease the risk of falls will improve Outcome: Progressing Flowsheets (Taken 11/30/2023 0000) Ability to state ways to decrease the risk of falls will improve: Teach fall prevention measures Teach information regarding appropriate enviornmental changes Goal: Will remain free from falls Outcome: Progressing Flowsheets (Taken 11/30/2023 0000) Will remain free from falls: Assess risk [...] develop a pain control plan will improve 11/29/20231935 by Damaris Hummel RN Outcome: Progressing Flowsheets (Taken 11/29/2023 1100) Ability to develop a pain control plan will improve: Explain causes of pain and how long pain can be expected to last Teach information regarding pain management 11/29/20231113 by Damaris Hummel RN Outcome: Progressing Flowsheets (Taken 11/29/2023 1100) Ability to develop a pain control plan will improve: Explain causes of pain and how long pain can be expected to last Teach information regarding pain management Problem: Medication Goal: Satisfaction with pain management medication regimen will improve 11/29/20231935 by Damaris Hummel RN Outcome: Progressing Flowsheets (Taken 11/29/2023 1100) Satisfaction with pain management medication regimen will improve: Assess satisfaction with pain management regimen Evaluate medication effects 11/29/20231113 by Damaris Hummel RN Outcome: Progressing Flowsheets [...] 11/29 Plan & referrals made/in place: IRF: [facility] (P:[phone]) -accepted, auth started 11/27 Facility contact: Radha Gautam (P: [phone]) Weekend contact: Jenise (P: [phone]) Support following discharge: sister Italia ([phone]) Transportation: [facility] [place] be arranged by [place] F/[place] Appointments: Jan 07, 2024 12:30 PM -Return with Brennan Castillo MD [facility] Neurosurgery Plan for weekend discharge: Contact Jenise ([phone]) regarding insurance auth, bed availability, room number, [...] assistance, please check the treatment team in [facility] for the assigned case packer and sealer or contact the weekend Case Management phone [...] Ly, 73 y.o. female (: 1950) Room: [id number] ( ) LOS: 4 Consult Question: diabetes [...] mellitus with diabetic autonomic (poly)neuropathy ([facility]), Type 2 diabetes mellitus with hyperglycemia (CMS/HCC) ([facility]), and Type II diabetes mellitus with stage 3 chronic kidney disease ([facility]). She has a past surgical history [...] labs, imaging, and diagnostics independently reviewed in [facility] and commented on below. Lab Results Component [...] comorbidities: <7 Diabetes Provider: PCP Insurance: Payor: [employer] HEALTHCARE / Plan: [employer] / Product Type: MEDICARE RISK OTHER/ Home [...] Research * Plan of Care - Micheline Robertson, SEBASTIÁN - 11/28/2023 2:24 PM CDT Per Medical Chart/Rounds/IDR: 73 y/o female s/p C5-T2 PCDF. ADD: 11/28 vs 11/29 Plan & referrals made/in place: IRF: [facility] (P:[phone]) -accepted, auth started 11/27 Facility contact: Radha Gautam (P: [phone]) Weekend contact: Jenise (P: [phone]) Support following discharge: sister Italia ([phone]) Transportation: [facility] [place] by [place] F/[place] Appointments: Jan 07, 2024 12:30 PM -Return with Brennan Castillo MD [facility] Neurosurgery Plan for weekend discharge: Contact Jenise ([phone]) regarding insurance auth, bed availability, room number, [...] assistance, please check the treatment team in [facility] for the assigned case packer and sealer or contact the weekend Case Management phone * Consults, Subsequent - Radha Ragland NP - 11/28/2023 1:02 PM CDT Endocrinology & Diabetes Progress Note Patient: Criss Ly, 73 y.o. female (: 1950) Room: [place] [address] [address] ( ) LOS: 4 Criss Ly is [...] labs, imaging, and diagnostics independently reviewed in [facility] and commented on below. Lab Results Component [...] comorbidities: <7 Diabetes Provider: PCP Insurance: Payor: [employer] HEALTHCARE / Plan: [employer] / Product Type: MEDICARE RISK OTHER/ Home [...] & Lipid Research Contact Info: New Consults: [phone]) General Endocrine (Non-Diabetes): [phone] (Check 'Treatment Team' assignment for Diabetes 1 vs 2 vs 3 vs 4) Diabetes After-Hours & Weekends: Diabetes Fellow [phone] or [phone] Cosigned by Natalya Barrera MD at 12/08/2023 12:07 PM CDT Associated attestation - Natalya Barrera MD - 12/08/2023 12:07 PM CDT I have reviewed this note for the purpose of clinical review of HEALTH CARE LIAISON/PA activities. I have not provided any direct patient care for this patient. * [facility]IN Note - Micheline Robertson RN - 11/28/2023 9:00 AM CDT Images from the original note were not included. Patient Information: OT Eval and Treat Last 72 Hours OT Evaluation Row Name 11/26/23 0740 Chart Reviewed Yes -HC Session Type Evaluation -HC OT Received On 11/26/23 - Safe Environment Arm band checked;Patient found in supine;Gait belt utilized for all out of bed mobility -HC Subjective Agreeable to Therapy -HC Family/Caregiver Present No -HC Precautions Fall risk;Spinal/Back -HC Braces/Orthoses Cervical collar Marcia Blandon donned for entire session -HC Precaution Handout Issued No -HC Precaution Comments Verbally reviewed precautions prior to mobility. Pt demonstrated and verbalizedunderstanding. -HC Type of Home House - Home Layout One level - Home Access Ramped entrance - Bathroom Shower/Tub Tub/shower unit - Bathroom Toilet Raised - Bathroom Equipment Grab bars around toilet;Grab bars in shower/tub;Tub transfer bench - Bathroom Accessibility Accessible - Home Mobility Equipment-Available Wheelchair-manual;Wheeled walker - Home Mobility Equipment-Currently Using Wheelchair-manual -HC Additional Comments Pt reports using manual w/c for all mobility at baseline. -HC Level of [place] Independent functional transfers;Independent with ambulation;Independent withADLs;Independent with [...] -HC Cleaning Total -HC Shopping Total -HC Food Cooking Machine Operator Moderate Pt sister brings bills over then [...] assistance Maximum Assist - Toileting: Assistance with Posterior;Clothing management up;Clothing management down;Anterior Max for task -HC Room Mobility: Where assessed Pt's room, to/from sink in bathroom -HC Health Management: Equipment Wheelchair -HC Room Mobility: Level of Assistance Minimum Assist - Room Mobility comment Min A for force production and balance - Toilet Transfer From Bed - Toilet Transfer Type To and from - Toilet Transfer to -- Wheelchair to sim -HC Toilet Transfer Technique Stand pivot - Toilet Transfer: Equipment Wheeled walker - Toilet Transfers Moderate assistance - Toilet Transfers Comments Mod A for force production and balance. -HC Pain Assessment 0-10 -HC Pain Score 5 - Moderate pain -HC Pain Location Incision - Pain Orientation Posterior -HC Pain Interventions Repositioned;RN [...] name and address after me David Braden [address] [place] [address] -HC Without looking at the clock, tell [...] in recliner;Chair alarm in place and activated - Problem List Decreased endurance;Decreased balance;Decreased fine motor control;Decreased functional mobility;Decreased gross motor control;Decreased ADL independence;Decreased IADL independence;Decreased upper extremity strength - Barriers to Discharge Current Mobility Status;Current ADL Status - Barrier Comments Fall risk - Plan Plan [...] Dates Stan Johnson OT 06/02/23 - OT Treatment Row Name 11/27/23 0902 Session Type Treatment - OT Received On 11/27/23 - Safe Environment Arm band checked;Patient found in supine;Gait belt utilized for all out of bed mobility - Subjective Agreeable to Therapy - Family/Caregiver Present No - Precautions Fall risk;Cervical spine - Weight Bearing Restrictions No -HC Braces/Orthoses Cervical collar [place] - Precaution Handout Issued No - Precaution Comments Verbally reviewed precautions prior to mobility. Pt demonstrated and verbalizedunderstanding. - Pain Assessment 0-10 - Pain Score 5 - Moderate pain - Pain Location Back (Cervical) - Pain Orientation Posterior - Pain Interventions Repositioned;RN Notified RN Damaris - Balance Yes -HC Dynamic Sitting-Balance Support No upper extremity supported - Dynamic Sitting-Balance Lateral lean;Forward lean;Reaching for objects;Reaching across midline - Dynamic Sitting-Sitting Surface Bed -HC Dynamic Sitting-Level of Assistance Contact guard -HC Dynamic Sitting-Comments CGA for balance -HC Dynamic Standing-Balance Support Bilateral upper extremity supported on ww -HC Dynamic Standing-Balance Lateral lean;Forward lean;Reaching for objects;Reaching across midline -HC Dynamic Standing-Standing Surface Floor -HC Dynamic Standing-Level of Assistance Moderate assistance -HC Dynamic Standing-Comments Mod A for balance and safety -HC ADLS (WDL) X -HC Grooming: Where assessed Chair -HC Grooming: Level of assistance Distant Supervision -HC Grooming: Assistance with Safety Sup for safety -HC Toileting: Where assessed -- EOB to sim -HC Toileting: Level of assistance Maximum Assist -HC Toileting: Assistance with Anterior;Posterior;Clothing management down;Clothing management [...] Problem Solving Able to problem solve independently - Compliance/Behavior Easy to engage -HC Perseveration Not [...] notified;Call light within reach;Overbed table within reach - Problem List Decreased endurance;Decreased balance;Decreased fine motor control;Decreased functional mobility;Decreased gross motor control;Decreased ADL independence;Decreased IADL independence;Decreased upper extremity strength - Barriers to Discharge Current Mobility Status;Current ADL [...] = Cosigned By Initials Name Effective Dates HC Stan Johnson OT 06/02/23 - OT Notes 11/26/2023 9:06 AM Progress Notes signed by Stan Johnson OT 11/27/2023 12:14 PM Progress Notes signed by Stan Johnson, OT , OT Eval and Treat Last Documented OT ASSESSMENT FLOWSHEET LAST DOCUMENTED (most recent) OT Evaluation - 11/28/23 0796 Pain Assessment Pain Assessment 0-10 Pain Score [...] 9:06 AM Progress Notes signed by Stan Johnson, OT 11/27/2023 12:14 PM Progress Notes signed by Stan Johnson, OT , PT Eval and Treat Last 72 Hours PT Evaluation Row Name 11/26/23 1452 Chart Reviewed Yes -VR Session Type Evaluation [...] Bearing Restrictions No -VR Braces/Orthoses Cervical collar [place] cervical collar on -VR Precaution Handout Issued No -VR Type of Home House -VR Home Layout One level;Performs ADLs on one level;Able to live on main level with bedroom/bathroom -VR Home Access Ramped entrance -VR Home Mobility Equipment-Available 4-Wheeled walker;Wheelchair-manual;Lift Chair -VR Home Mobility Equipment-Currently Using 4-Wheeled walker;Lift Chair;Wheelchair- manual -VR Level of [place] Independent with ADLs;Independent with wheelchair;Independent functional transfers [...] History -- Attempted to see patient, a [facility] Physician was in the room talking to the patient, will see another time. -VR Family/Caregiver Present No -VR -- Current Functional Status PT Functional Mobility Interventions: patient educated in precautions and mobility within precautions -VR -- Precautions Precautions Fall risk;Cervical spine -VR -- Weight Bearing Restrictions No -VR -- Braces/Orthoses Cervical collar [place] cervical collar on -VR -- Precaution Handout Issued No -VR -- Activity Tolerance Endurance Tolerates 10 - 20 min activity with multiple rests -VR -- Pain Assessment Pain Assessment 0-10 -VR -- Pain Score 8 -VR -- Pain Type Surgical pain -VR -- Pain Interventions Repositioned;Elevated;RN Notified RN- Damaris -VR -- Cognition Arousal/Alertness Alert;Appropriate responses to [...] 5:00 PM Progress Notes signed by Charlene Krishnamurthy PT * ECIN Note - Micheline Robertson [...] Intake/Output 11/25/23 0700 - 11/26/23 0659 11/26/23 07 - 11/27/23 0659 11/27/23 0700 - 11/28/23 0659 11/28/23 0700 - 11/29/23 0659 Total Total 4676-5444 3799-6287 0629-2688 Total 6749-7229 3942-0432 0111-9644 Total Intake (ml) 267.5 -- 960 791 454 2843 -- -- -- -- Output (ml) 980 [...] tear Location Orientation: Left Assessments Row Name 11/28/2371411/27/23194411/27/2389911/26/231999 Wound Status Evolving Evolving Evolving Evolving Site [...] Wound Description (Comments): [place] Assessments Row Name 11/28/2371411/27/23194411/27/23 0911/26/231999 Wound Status Healing Healing Healing Evolving [...] admission Location Orientation: Left Assessments Row Name 11/28/23 0711/27/23194411/27/2389911/26/231999 Pressure Ulcer Status Healing Healing Healing Healing [...] (Comments): Dermabond, Aquacel Assessments Row Name 11/28/23 0711/27/23194411/27/2389911/26/231999 Site Assessment [place]OOK M[place] Color appropriate for [...] (Autopopulated from EMR) None found ............filed at 11/28/2023714 History of Falling 0 ............filed at 11/28/2023 07 Secondary Diagnosis 15 ............filed at 11/28/2023 07 Ambulatory Aids 15 ............filed at 11/28/2023 07 Intravenous Therapy/Heparin/Saline Lock 20 ............filed at 11/28/2023 07 Gait/Transferring 0 ............filed at 11/28/2023 07 Mental Status 0 ............filed at 11/28/2023 0715 [place] Fall Risk Score 50 ............filed at 11/28/2023714 Vital Signs 11/26 0711/27 0659 11/27 0711/27 09 Most Recent Temp (??C) 36.3 - 37.1 36.7 36.7 (98) 11/27 734 Pulse 64 - 73 66 66 11/27 734 Resp 16 14 14 11/27 0635 SpO2 (%) 93 - 100 96 96 11/27 0635 BP 123/37 - 159/54 148/63 148/63 11/27 0635 MAP (mmHg) 60 - 89 87 87 11/27 734 Default Flowsheet Data (most recent) Endurance Tests No documentation. Nursing Nutrition None Nursing Mobility Activity 11/27 0800 Chair 11/27 0715 Chair 11/27 0559 Resting in bed;Sleeping 11/27 0252 Sleeping;Resting in bed 11/26 2331 Resting in bed;Ambulate in room;Bathroom privileges;Dangle;Stand at bedside;Chair 11/27 2019 Chair 11/26 1945 Ambulate in room;Chair 11/26 [...] HOB 30 Range of Motion Interventions 11/27 0715 Active;All extremities 11/26 1945 Active 11/26 0933 Active;All extremities 11/25 2000 Active;All extremities 11/25 0845 Active;All extremities 11/24 1500 Active;All extremities Type of Device 11/27 0715 Mechanical compression 11/26 0933 Mechanical compression Anti-Embolism Site 11/26 0933 Bilateral Mechanical Compression Site 11/27 0715 Bilateral 11/27 1999 Bilateral 11/26 0933 Bilateral 11/25 0800 Bilateral 11/25 1999 Bilateral Mechanical Compression Type 11/27 0715 IPC/SCD 11/26 2000 IPC/SCD 11/26 0933 IPC/SCD 11/25 0800 IPC/SCD 11/24 2000 IPC/SCD Mechanical Compression Status 11/27 0715 Refused 11/26 2000 Refused 11/26 0933 Off 11/25 0800 Off 11/24 2000 On 11/24 1230 Off , Meds and Admin Active Only All Meds/Most Recent Administrations acetaminophen (TYLENOL) tablet 1,000 mg [[id number]] Ordering Provider: Brennan Castillo MD Status: Completed (Past End Date/Time) Ordered On: 11/24/23 1142 Starts/Ends: 11/24/23 1215 - 11/24/23 1146 Ordered Dose (Remaining/Total): 1,000 mg (0/1) Route: oral Frequency: Once Ordered Rate/Order Duration: -- / -- Admin Instructions: Administer 60 minutes prior to surgery. Timestamps Action Dose Route Other Information 11/24/23 1146 Given 1,000 mg oral Performed by: Maryanne Barnett RN Scanned Package: 7124-8203-37, 4039-8491-22 gabapentin (NEURONTIN) capsule 300 mg [[id number]] Ordering Provider: Brennan Castillo MD Status: Completed (Past End Date/Time) Ordered On: 11/24/23 114 Starts/Ends: 11/24/231214 - 11/24/23 1146 Ordered Dose (Remaining/Total): 300 mg (0/1) Route: oral Frequency: Once Ordered Rate/Order Duration: -- / -- Admin Instructions: Administer 60 minutes prior to surgery. Timestamps Action Dose Route Other Information 11/24/23 114 Given 300 mg oral Performed by: Maryanne Barnett RN Scanned Package: 59561-732-34 ceFAZolin (ANCEF) 2,000 mg/20 mL in sterile water (premix) 2,000 mg [[id number]] Ordering Provider: Brennan Castillo MD Status: Completed [...] in sodium chloride 0.9% (premix) 1,500 mg [[id number]] Ordering Provider: Brennan Castillo MD Status: Completed (Past End Date/Time) Ordered On: 11/24/23 114 Starts/Ends: 11/24/231214 - 11/24/23 1401 Ordered Dose (Remaining/Total): 1,500 mg (0/1) Route: intravenous Frequency: Once Ordered Rate/Order Duration: -- / 90 Minutes Admin Instructions: Administer within 120 minutes of incision. Timestamps Action Dose / Duration Route Other Information 11/24/23 1231 Given 1,500 mg 90 Minutes intravenous Performed by: Wagner Madison CRNA Lactated Ringer's (LR) infusion - ADS Override Pull [[id number]] Status: Completed (Past End Date/Time) Ordered On: 11/24/23 1232 Starts/Ends: 11/24/23 1232 - 11/24/23 1421 Ordered Dose (Remaining/Total): -- (0/1) Route: -- Frequency: -- Ordered Rate/Order Duration: -- / -- Admin Instructions: Created by cabinet override Note to pharmacy: Created by cabinet override (No admins scheduled or recorded for this medication) cloNIDine (CATAPRES) tablet 0.1 mg [[id number]] Ordering Provider: Karely Wilkes MD PhD Status: Dispensed Ordered On: 11/25/23 0432 Start: 11/25/23 0900 Ordered Dose (Remaining/Total): 0.1 mg (--/--) Route: oral Frequency: 2 times daily Ordered Rate/Order Duration: -- / -- Timestamps Action Dose Route Other Information 11/27/23 220 Given 0.1 mg oral Performed by: Sindi Cabezas RN Comments: Pt requested to ambulae to BR before BP taken. Scanned Package: 04845-855-00 fluticasone propionate (FLONASE) 50 mcg/actuation nasal spray 2 spray [[id number]] Ordering Provider: Karely Wilkes MD PhD Status: Dispensed Ordered On: 11/25/23 180 Start: 11/26/23 0900 Ordered Dose (Remaining/Total): 2 spray (--/--) Route: each nostril Frequency: Daily Ordered Rate/Order Duration: -- / -- Timestamps Action Dose Route Other Information 11/26/23 1029 Given 2 spray each nostril Performed by: Graciela Pink, SEBASTIÁN Scanned Package: [address]-6 gabapentin (NEURONTIN) capsule 100 mg [[id number]] Ordering Provider: Karely Wilkes MD PhD Status: Dispensed Ordered On: 11/24/232050 Start: 11/24/23 213 Ordered Dose (Remaining/Total): 100 mg (--/--) Route: oral Frequency: 3 times daily Ordered Rate/Order Duration: -- / -- Timestamps Action Dose Route Other Information 11/27/232150 Given 100 mg oral Performed by: Sindi Cabezas RN Scanned Package: 74446-769-43 simvastatin (ZOCOR) tablet 40 mg [[id number]] Ordering Provider: Karely Wilkes MD PhD Status: Dispensed Ordered On: 11/25/231803 Start: 11/25/232099 Ordered Dose (Remaining/Total): 40 mg (--/--) Route: oral Frequency: Nightly Ordered Rate/Order Duration: -- / -- Timestamps Action Dose Route Other Information 11/27/232150 Given 40 mg oral Performed by: Sindi Cabezas RN Scanned Package: 54784-052-97 sodium chloride 0.9% flush 0.5-20 mL [[id number]] Ordering Provider: Karely Wilkes MD PhD Status: [...] RN sodium chloride 0.9% flush 0.5-20 mL [[id number]] Ordering Provider: Karely Wilkes MD PhD Status: Verified Ordered On: 11/25/231803 Start: 11/25/231803 Ordered Dose (Remaining/Total): 0.5-20 mL (--/--) Route: intra-catheter Frequency: As needed Ordered Rate/Order Duration: -- / -- Admin Instructions: Flush volume based on line type and size. Flush before and after each use. (No admins scheduled or recorded for this medication) Carrier Fluids for Secondary Infusion - 0.9% Sodium Chloride [[id number]] Ordering Provider: Karely Wilkes MD PhD Status: [...] medication) sodium chloride 0.9% flush 0.5-20 mL [[id number]] Ordering Provider: Karely Wilkes MD PhD Status: Verified Ordered On: 11/25/231803 Start: 11/25/232199 Ordered Dose (Remaining/Total): 0.5-20 mL (--/--) Route: intra-catheter Frequency: Every 8 hours scheduled Ordered Rate/Order Duration: -- / -- Admin Instructions: Flush volume based on line type and size. Timestamps Action Dose Route Other Information 11/28/23 0600 Given 5 mL intra-catheter Performed by: Sindi Cabezas RN Scanned Package: [id number] sodium chloride 0.9% flush 0.5-20 mL [[id number]] Ordering Provider: Karely Wilkes MD PhD Status: Verified Ordered On: 11/25/231803 Start: 11/25/231803 Ordered Dose (Remaining/Total): 0.5-20 mL (--/--) Route: intra-catheter Frequency: As needed Ordered Rate/Order Duration: -- / -- Admin Instructions: Flush volume based on line type and size. Flush before and after each use. (No admins scheduled or recorded for this medication) Carrier Fluids for Secondary Infusion - 0.9% Sodium Chloride [[id number]] Ordering Provider: Karely Wilkes MD PhD Status: [...] this medication) acetaminophen (TYLENOL) tablet 1,000 mg [[id number]] Ordering Provider: Karely Wilkes MD PhD Status: Dispensed Ordered On: 11/25/231803 Start: 11/25/231844 Ordered Dose (Remaining/Total): 1,000 mg (--/--) Route: oral Frequency: Every 6 hours scheduled Ordered Rate/Order Duration: -- / -- Timestamps Action Dose Route Other Information 11/28/23 0600 Given 1,000 mg oral Performed by: Sindi Cabezas RN Scanned Package: 3515-8995-29, 8464-6879-26 ondansetron ODT (ZOFRAN-ODT) disintegrating tablet 4 mg [[id number]] Ordering Provider: Karely Wilkes MD PhD Status: Verified Ordered On: 11/25/231803 Start: 11/25/231803 Ordered Dose (Remaining/Total): 4 mg (--/--) Route: oral Frequency: Every 6 hours PRN Ordered Rate/Order Duration: -- / -- (No admins scheduled or recorded for this medication) ondansetron (ZOFRAN) injection 4 mg [[id number]] Ordering Provider: Karely Wilkes MD PhD Status: Verified Ordered On: 11/25/231803 Start: 11/25/231803 Ordered Dose (Remaining/Total): 4 mg (--/--) Route: intravenous Frequency: Every 6 hours PRN Ordered Rate/Order Duration: -- / 2 Minutes (No admins scheduled or recorded for this medication) polyethylene glycol (MIRALAX) packet 17 g [[id number]] Ordering Provider: Karely Wilkes MD PhD Status: Dispensed Ordered On: 11/25/231803 Start: 11/25/231844 Ordered Dose (Remaining/Total): 17 g (--/--) Route: oral Frequency: Daily Ordered Rate/Order Duration: -- / -- Admin Instructions: Hold for diarrhea. Timestamps Action Dose Route Other Information 11/27/23 0945 Given 17 g oral Performed by: Damaris Hummel RN Scanned Package: 55197-131-60 senna-docusate (PERICOLACE) 8.6-50 mg per tablet 2 tablet [[id number]] Ordering Provider: Karely Wilkes MD PhD Status: Dispensed Ordered On: 11/25/231803 Start: 11/25/232099 Ordered Dose (Remaining/Total): 2 tablet (--/--) Route: oral Frequency: 2 times daily Ordered Rate/Order Duration: -- / -- Admin Instructions: Hold for diarrhea. Timestamps Action Dose Route Other Information 11/27/232150 Given 2 tablet oral Performed by: Sindi Cabezas RN Scanned Package: 6114-5237-54, 0603-0185-39 bisacodyL (DULCOLAX) suppository 10 mg [[id number]] Ordering Provider: Karely Wilkes MD PhD Status: Verified Ordered On: 11/25/231803 Start: 11/25/231803 Ordered Dose (Remaining/Total): 10 mg (--/--) Route: rectal Frequency: Daily PRN Ordered Rate/Order Duration: -- / -- (No admins scheduled or recorded for this medication) famotidine (PEPCID) tablet 20 mg [[id number]] Ordering Provider: Karely Wilkes MD PhD Status: Dispensed Ordered On: 11/25/23431 Start: 11/25/23 09 Ordered Dose (Remaining/Total): 20 mg (--/--) Route: oral Frequency: 2 times daily Ordered Rate/Order Duration: -- / -- Timestamps Action Dose Route Other Information 11/27/232151 Given 20 mg oral Performed by: Sindi Cabezas RN enoxaparin (LOVENOX) syringe 30 mg [[id number]] Ordering Provider: Karely Wilkes MD PhD Status: Dispensed Ordered On: 11/25/231803 Start: 11/25/232099 Ordered Dose (Remaining/Total): 30 mg (--/--) Route: subcutaneous Frequency: Daily (for enoxaparin) Ordered Rate/Order Duration: -- / -- Timestamps Action Dose Route / Site Other Information 11/27/232151 Given 30 mg subcutaneous Left Lower Abdomen Performed by: Sindi Cabezas RN Scanned Package: 46013-266-03 ceFAZolin (ANCEF) 2,000 mg/20 mL in sterile water (premix) 2,000 mg [[id number]] Ordering Provider: Karley Wilkes MD PhD Status: Completed (Past End Date/Time) Ordered On: 11/24/232050 Starts/Ends: 11/24/232199 - 11/25/23613 Ordered Dose (Remaining/Total): 2,000 mg (0/2) Route: intravenous Frequency: Every 8 hours Ordered Rate/Order Duration: 400 mL/hr / 3 Minutes Admin Instructions: Beginning 8 hours after last edelmira-procedural dose. Line Med Link Info Comment Peripheral IV 11/24/23 18 G Right Antecubital 11/25/23610 by Jeaneth Reaves RN -- Timestamps Action Dose / Rate / Duration Route Other Information 11/25/23610 Given 2,000 mg 400 mL/hr 3 Minutes intravenous Performed by: Jeaneth Reaves RN vancomycin 1500 mg/515 mL in sodium chloride 0.9% (premix) 1,500 mg [[id number]] Ordering Provider: Karely Wilkes MD PhD Status: Completed (Past End Date/Time) Ordered On: 11/24/232050 Starts/Ends: 11/25/2399 - 11/25/23 0258 Ordered Dose (Remaining/Total): 1,500 mg (0/1) Route: intravenous Frequency: Once Ordered Rate/Order Duration: -- / 90 Minutes Admin Instructions: Administer 12 hours after last pre-operative dose. Timestamps Action Dose / Duration Route Other Information 11/25/23 0128 New Bag 1,500 mg 90 Minutes intravenous Performed by: Nhung Bose RN oxyCODONE (ROXICODONE) tablet 5 mg [[id number]] Ordering Provider: Karely Wilkes MD PhD Status: Dispensed Ordered On: 11/25/23431 Start: 05/14/24 0432 Ordered Dose (Remaining/Total): 5 mg (--/--) Route: oral Frequency: Every 4 hours PRN Ordered Rate/Order Duration: -- / -- Timestamps Action Dose Route Other Information 11/28/23 0605 Given 5 mg oral Performed by: Sindi Cabezas RN Scanned Package: 86687-769-70 sodium chloride 0.9% IVPB 0-250 mL [[id number]] Ordering Provider: Karely Wilkes MD PhD Status: Completed (Past End Date/Time) Ordered On: 11/24/231818 Starts/Ends: 11/24/231899 - 11/24/231845 Ordered Dose (Remaining/Total): 0-250 mL (0/) Route: intravenous Frequency: Once Ordered Rate/Order Duration: -- / -- Admin Instructions: Prime blood tubing and administer amount needed to clear line (usually 50-100 mL) after transfusion complete. Timestamps Action Dose Route Other Information 11/24/231845 New Bag 250 mL intravenous Performed by: Nhung Bose RN Scanned Package: 0118-9196-59 dextrose gel in packet 15 g [[id number]] Ordering Provider: Kareyl Wilkes MD PhD Status: Verified Ordered On: [...] medication) dextrose (D10W) 10% bolus 250 mL [[id number]] Ordering Provider: Karely Wilkes MD PhD Status: [...] hour post treatment. If BG is less yddw672 mg/dL, repeat Q15 minute BG checks and treatment. Call MD for each episode of hypoglycemia. (No admins scheduled or recorded for this medication) glucagon injection 1 mg [[id number]] Ordering Provider: Karely Wilkes MD PhD Status: [...] HFA,PROAIR HFA) 90 mcg/actuation inhaler 2 puff [[id number]] Ordering Provider: Brennan Castillo MD Status: Verified Ordered On: 11/25/231814 Start: 11/25/231813 Ordered Dose (Remaining/Total): 2 puff (--/--) Route: inhalation Frequency: Every 6 hours PRN (clinical social work therapist) Ordered Rate/Order Duration: -- / -- (No admins scheduled or recorded for this medication) insulin lispro (HumaLOG, ADMELOG) 100 unit/mL injection 0-5 Units [[id number]] Ordering Provider: Melva Lilly MD Status: Dispensed Ordered On: 11/25/232241 Start: 11/26/23 0800 Ordered Dose (Remaining/Total): 0-5 [...] Performed by: Damaris Hummel RN Scanned Package: 9131-4379-57 insulin lispro (HumaLOG, ADMELOG) 100 unit/mL injection 0-4 Units [[id number]] Ordering Provider: Melva Lilly MD Status: Dispensed Ordered On: 11/25/232241 Start: 11/25/23 2315 Ordered Dose (Remaining/Total): 0-4 Units (--/--) Route: [...] Action Dose Route / Site Other Information 11/25/23 2311 Given 1 Units subcutaneous Left Lower Abdomen Performed by: Juice Griffiths RN Scanned Package: 6638-5161-95 methocarbamoL (ROBAXIN) tablet 500 mg [[id number]] Ordering Provider: Jef Rock NP Status: Dispensed Ordered On: 11/26/23 0942 Start: 11/26/23 1015 Ordered Dose (Remaining/Total): 500 mg (--/--) Route: oral Frequency: 3 times daily Ordered Rate/Order Duration: -- / -- Timestamps Action Dose Route Other Information 11/27/23 2152 Given 500 mg oral Performed by: Sindi Cabezas RN Scanned Package: 62706-896-36 cyclobenzaprine (FLEXERIL) tablet 5 mg [[id number]] Ordering Provider: Jef Rock NP Status: Dispensed Ordered On: 11/26/23 0942 Start: 11/26/23 0942 Ordered Dose (Remaining/Total): 5 mg (--/--) Route: oral Frequency: 3 times daily PRN Ordered Rate/Order Duration: -- / -- Timestamps Action Dose Route Other Information 11/28/23 0021 Given 5 mg oral Performed by: Sindi Cabezas RN Scanned Package: 82775-304-04 insulin lispro (HumaLOG, ADMELOG) 100 unit/mL injection 6 Units [[id number]] Ordering Provider: Melva Lilly MD Status: Dispensed Ordered On: 11/26/231957 Start: 11/27/23 08 Ordered Dose (Remaining/Total): 6 Units (--/--) Route: [...] Performed by: Damaris Hummel RN Scanned Package: 3345-0836-77 furosemide (LASIX) tablet 40 mg [[id number]] Ordering Provider: Roseline Burciaga NP Status: Dispensed Ordered On: 11/27/23 1149 Start: 11/27/23 1230 Ordered Dose (Remaining/Total): 40 mg (--/--) Route: oral Frequency: Daily Ordered Rate/Order Duration: -- / -- Timestamps Action Dose Route Other Information 11/27/23 1252 Given 40 mg oral Performed by: Damaris Hummel RN Scanned Package: 52987-858-13 insulin glargine (LANTUS, SEMGLEE) 100 unit/mL injection 15 Units [[id number]] Ordering Provider: Anni Sanchez MD Status: Dispensed Ordered On: 11/27/231803 Start: 11/27/23 2100 Ordered Dose (Remaining/Total): 15 Units (--/--) Route: subcutaneous Frequency: Nightly Ordered Rate/Order Duration: -- / -- Admin Instructions: Do not hold if NPO. Decreased per Endo on 11/27/2023 Do not mix with other insulins Timestamps Action Dose Route / Site Other Information 11/27/232151 Given 15 Units subcutaneous Left Lower Abdomen Performed by: Sindi Cabezas RN Scanned Package: 86913-502-52 , Wound Info Only Active Wound Assessment [...] Orientation: Left Assessments Row Name 11/28/23 0715 11/27/23 1945 11/27/23 0900 11/26/231999 Wound Status Evolving Evolving Evolving [...] Dermabond, Aquacel Assessments Row Name 11/28/23 0715 11/27/23 1945 11/27/23 0900 11/26/231999 Site Assessment MOOK MOOK Color appropriate for [...] to be sent. CM to follow up 11/27 AM. Patient will need insurance auth once there is an accepting IRF. Support following discharge: sister Italia ([phone]) Transportation: [facility] [place] arranged by CM [place] F/U Appointments: Jan 07, 2024 12:30 PM -Return with Brennan Castillo MD [facility] Neurosurgery Patient's Identified Problem/Goal Problem: Ensure acute medical needs are met and that patient has a safe discharge plan. Goal: Secure a discharge plan that patient/family are agreeable with and ensure patient has continuum of care. Patient and/or family are agreeable with plan. publication manager will continue to follow and assist with discharge planning as needed. If any further discharge needs arise, please contact the covering case packer and sealer. * Consults, Subsequent - Angeles Jiménez MD - 11/27/2023 2:14 PM CDT Endocrinology & Diabetes Consult Note Patient: Criss Ly, 73 y.o. female (: 1950) Room: [place] [id number] ( ) LOS: 3 Consult Question: diabetes management (Requesting Provider: Brennan Castillo MD) Criss Ly is a 73 y.o. female with PMHx of T2D, multilevel anterior cervical diskectomy, obesity, sarcoidosis who was admitted for posterior spinal fusion of C5-T2 and b/l foraminotomies on 5/13. Endocrinology is consulted for inpatient diabetes management. [...] Sarcoidosis, Type 2 diabetes mellitus ([facility]), Type 2 diabetes mellitus with diabetic autonomic (poly)neuropathy ([facility]), Type 2 diabetes mellitus with hyperglycemia (CMS/HCC) ([facility]), and Type II diabetes mellitus with stage 3 chronic kidney disease ([facility]). She has a past surgical history [...] labs, imaging, and diagnostics independently reviewed in [facility] and commented on below. Lab Results Component [...] comorbidities: <7 Diabetes Provider: PCP Insurance: Payor: [employer] / Plan: [employer] / Product Type: MEDICARE RISK OTHER/ [...] gtt buthas been off of it since 0911/24. She was started on basal bolus regimen [...] for your response, Tanuja. Eugenia LOWERY, MSN, ROOF FOREMAN, CCDS Clinical Hod Carrier Assistant Director Of Security [email or web address] * Plan of Care - Graciela Pink [...] Interview Note Information Obtained From: Patient (11/26/23 1035) Admission Source: From non healthcare facility Impression: Patient s/p C5-T2 PCDF Plan Includes: CM explained role,and verified facesheet information. CM will continue to follow forreferrals and discharge planning. Anticipate discharge to SNF vs IPR pending PT/OT recs. Primary Source of Transportation: Does the patient need discharge transport arranged?: Yes Has discharge transport been arranged?: No Details of Transportation: EMS (11/26/231034) Health Insurance Coverage: [employer] Prescription Coverage: yes Pharmacy: [facility] [id number] [place] [address] [facility] [id number] Primary Care Provider: Lalito England MD Prior to Admission: Functional Status: Independent with ADLs Primary Caregiver: Self Support System: Family members, Friends/neighbors Home Care Services: Yes Type of Home Care Services: bible worker Home care service name and phone number: paid friend Outpatient Services: No Durable Medical Equipment: Walker (no wheels), Wheelchair, Wheelchair ramp Living Arrangements: Alone Type of Residence: Private residence Medication management: Independent (11/26/231034) Potential discharge needs include: Home Health: retirement, Physical therapy, Occupational therapy (11/26/231034) Anticipated Level of Care: Anticipated discharge level of care: retirement facility Pt/Family agrees with Anticipated Level of [...] Collaboration with Patient, Provider, Direct Care Nurse, Heel Nailing Machine Operator, and other members of theHealth Care Team to assure needed interventions completed. 2. Return patient to optimal level of self-care post discharge. 3. Braille Coder will follow for Discharge Planning - interventions [...] and found to be in an ideal configuration.The decision was made to proceed as nothing else could be done differently and the goal would be toexpeditiously perform the decompression. No other barriers were identified proceeding. The skin wasincised sharply and a meticulous subperiosteal exposure was [...] circumferential soft tissue encroachment within the foramen andsurrounding the nerve roots. A combination of sharp [...] to place bilateral C5 and C6 lateral mass screws followed by bilateral T1 and T2 pedicle [...] of surgery as well as excellent placement of the instrumentation. Two titanium rods were measured, cut, [...] Boss MD PhD; Mary Jo Saldana MD CARE TRAINER: Silvia Neri CRNA; Wagner Madison CRNA Fountain Worker: Joyce Mccray RN; Paola Stuart RN Transaction Manager: Radha Fisher RT; Jose Moore RT Scrub Relief: Juana Brody ST; Perez Rojas RN Scrub: Daisy Teixeira RN Juvenile Justice Specialist: Hazel Andrade MT; Zenon Jones MT DATE [...] Implant Name Type Inv. Item Serial No. Ehr Trainer Lot No. [id number] No. Used Action NEW [employer]GE [employer] Graft Bone Magnetos 10cc 1-2mm Granules In Moldable Putty [id number] - [id number] [employer] Graft Bone Magnetos 10cc 1-2mm Granules In Moldable Putty [id number] New Age [id number] 1 Implanted [employer] Crushed Chip Frozen Graft 60ml Bone Cancellous [id number] - [id number] [employer] CrushedChip Frozen Graft 60ml Bone Cancellous [id number] [employer] [id number] Implanted [employer] Screw Spine Reline C Lock Open Non-Sterile Latex Free [id number] - [id number] [employer] Screw Spine Reline C Lock Open Non-Sterile Latex Free [id number] [employer] 8 Implanted [employer] Screw Spine Reline C Ma 3.5x16mm Non-Sterile Latex Free [id number] - [id number] [employer] Screw Spine Reline C Ma 3.5x16mm Non-Sterile Latex Free [id number] [employer] 2 Implanted [employer] Reline C Screw 3.5x16mm Reduction [id number] - [id number] [employer] Reline C Screw 3.5x16mm Reduction [id number] [employer] 2 Implanted [employer] Screw Spinal Posterior Cervical Full Thread Solid Reline 4.5x35mm Titanium [id number] - [id number] [employer] Screw Spinal Posterior Cervical Full Thread Solid Reline 4.5x35mm Titanium [id number] [employer] 1 Implanted [employer] Reline C Screw 5.5x35mm Reduction Thor [id number] - [id number] [employer] Reline C Screw 5.5x35mm Reduction Thor [id number] [employer] 3 Implanted [employer] Eddi Spine Reline C Ti Prebent 4.0x70mm Latex Free [id number] - [id number] [employer] Eddi Spine Reline C Ti Prebent 4.0x70mm Latex Free [id number] [employer] 2 Implanted Blood/Blood Products Transfused: [...] case msg move to follow in other [facility] SPINAL CORD MONITORING 12:37 PM CDT Cervicalgia Case Notes 11/09@1405- Per Yola via case msg move to follow in other [facility]- [facility] FUSION CERVICAL/THORACIC - POSTERIOR WITH INSTRUMENTATION 11/24/2023 12:37 PM CDT Cervicalgia Case Notes 11/09@1405- Per Yola via case msg move to follow in other [facility] B CHECK SAMPLE STAT 11/24/2023 12:07 PM CDT POCT GLUCOSE DEVICE Routine 11/24/2023 1 2:03 PM CDT documented in this encounter Results * POCT glucose (12/04/2023 4:11 PM CDT) [facility] Signature Glucose, POC 147 70 - 199 mg/dL Blood 12/04/2023 4:11 PM CDT 12/04/2023 4:11 PM CDT us Brennan Castillo MD LAB POCT ORDERABLES - DEVICE Fi nal Result Performing Organization Address [facility] de Phone Number [facility] Department [place] [address] * POCT glucose (12/04/2023 11:53 AM CDT) Glucose, POC 109 70 - 199 mg/dL Blood 12/04/2023 11:5 3 AM CDT 12/04/2023 11:53 AM CDT Brennan Castillo MD LAB POCT ORDERABLES - DEVICE Fi nal Result Performing Organization Address [facility] de Phone Number [facility] Department [place] [address] * POCT glucose (12/04/2023 8:03 AM CDT) [facility] Glucose, POC 129 70 - 199 mg/dL Blood 12/04/2023 8:03 AM CDT 12/04/2023 8:03 AM CDT Brennan Castillo MD LAB POCT ORDERABLES - DEVICE Fi nal Result Performing Organization Address [facility] de Phone Number [facility] [place] [address] * (ABNORMAL) eGFR (12/03/2023 11:04 PM CDT) eGFR 29(L) >=60 mL/min/1. 73 m2 Comment: [...] CDT 12/03/2023 11:45 PM CDT Jef Rock HEALTH CARE LIAISON LAB BLOOD ORDERABLES Final Result [facility] One [facility] [place] [address] * (ABNORMAL) Basic metabolic panel (12/03/2023 11:04 PM CDT) Sodium 138 135 - 145 mmol/L Potassium, pl 4.4 3.3 - 4.9 mmol/L [facility] Chloride 101 97 - 110 mmol/L [facility] CO2 26 22 - 32 mmol/L [facility] Anion gap 11 2 - 15 mmol/L [facility] BUN 31(H) 6 - 25 mg/dL [facility] Creatinine 1.83(H) 0.60 - 1.10 mg/dL [facility] Glucose 147 70 - 199 mg/dL [facility] Comment: Interpretive Data Fasting glucose >/= [...] 2022. Calcium 9.3 8.5 - 10.3 mg/dL [facility] Blood 12/03/2023 11:0 4 PM CDT 12/03/2023 11:45 PM CDT Jef Rock NP LAB BLOOD ORDERABLES Final Result Performing Organization Address City/[facility] Co de Phone Number [facility] One [facility] [place] [address] * (ABNORMAL) CBC without differential (12/03/2023 11:04 PM CDT) WBC 6.3 3.8 - 9.9 K/cumm Hgb 9.9(L) 11.9 - 15.5 g/dL [facility] Hct 31.3(L) 35.6 - 45.5 % [facility] Plt 184 150 - 400 K/cumm [facility] MPV 9.8 9.1 - 12.3 fL [facility] RBC 3.72(L) 3.90 - 5.20 M/cumm [facility] MCV 84.1 81.3 - 96.4 fL [facility] MCH 26.6(L) 27.1 - 33.3 pg [facility] MCHC 31.6(L) 32.3 - 35.7 g/dL [facility] RDW CV 16.7(H) 11.1 - 14.9 % [facility] RDW SD 50.4(H) 35.7 - 48.1 fL [facility] NRBC abs 0.00 0.00 - 0.01 K/cumm [facility] Blood 12/03/2023 11:0 4 PM CDT 12/03/2023 11:44 PM CDT Jef Rock NP LAB BLOOD ORDERABLES Final Result [facility] [place] [address] * POCT glucose (12/03/2023 9:13 PM CDT) Glucose, POC 133 70 - 199 mg/dL Blood 12/03/2023 9:13 PM CDT 12/03/2023 9:13 PM CDT Brennan Castillo MD LAB POCT ORDERABLES - DEVICE Fi nal Result Performing Organization Address City/[facility] [place] [address] * POCT glucose (12/03/2023 4:46 PM CDT) Glucose, POC 148 70 - 199 mg/dL Blood 12/03/2023 4:46 PM CDT 12/03/2023 4:46 PM CDT Brennan Castillo MD LAB POCT ORDERABLES - DEVICE Fi nal Result Performing Organization Address [facility]/ZIP Co de Phone Number [facility] [place] [address] * POCT glucose (12/03/2023 11:42 AM CDT) Glucose, POC 142 70 - 199 mg/dL Blood 12/03/2023 11:4 2 AM CDT 12/03/2023 11:42 AM CDT Brennan Castillo MD LAB POCT ORDERABLES - DEVICE Fi nal Result Performing Organization Address City/[facility]/ZIP Co de Phone Number [facility] [place] [address] * POCT glucose (12/03/2023 7:40 AM CDT) Glucose, POC 138 70 - 199 mg/dL Blood 12/03/2023 7:40 AM CDT 12/03/2023 7:40 AM CDT us Brennan Castillo MD LAB POCT ORDERABLES - DEVICE Fi nal Result Performing Organization Address City/State/ZIP Co va Phone Number [facility] One [facility] [place] [address] * (ABNORMAL) eGFR (12/02/2023 10:33 PM CDT) [...] CDT 12/02/2023 11:33 PM CDT Jef Rock HEALTH CARE LIAISON LAB BLOOD ORDERABLES Final Result [facility] [place] [address] * (ABNORMAL) Basic metabolic panel (12/02/2023 10:33 PM CDT) Pathologist [facility] Sodium 138 135 - 145 mmol/L Potassium, pl 4.4 3.3 - 4.9 mmol/L [facility] Chloride 100 97 - 110 mmol/L [facility] CO2 27 22 - 32 mmol/L [facility] Anion gap 11 2 - 15 mmol/L [facility] BUN 33(H) 6 - 25 mg/dL [facility] Creatinine 1.87(H) 0.60 - 1.10 mg/dL [facility] Glucose 147 70 - 199 mg/dL [facility] Comment: Interpretive Data Fasting glucose >/= [...] 2022. Calcium 9.2 8.5 - 10.3 mg/dL [facility] Blood 12/02/2023 10:3 3 PM CDT 12/02/2023 11:33 PM CDT Jef Rock HEALTH CARE LIAISON LAB BLOOD ORDERABLES Final Result [facility] One [facility] [place] [address] * (ABNORMAL) CBC without differential (12/02/2023 10:33 PM CDT) Pathologist [facility] WBC 6.4 3.8 - 9.9 K/cumm Hgb 9.8(L) 11.9 - 15.5 g/dL [facility] Hct 30.8(L) 35.6 - 45.5 % [facility] Plt 191 150 - 400 K/cumm [facility] MPV 9.7 9.1 - 12.3 fL [facility] RBC 3.60(L) 3.90 - 5.20 M/cumm [facility] MCV 85.6 81.3 - 96.4 fL [facility] MCH 27.2 27.1 - 33.3 pg [facility] MCHC 31.8(L) 32.3 - 35.7 g/dL [facility] RDW CV 16.7(H) 11.1 - 14.9 % [facility] RDW SD 50.7(H) 35.7 - 48.1 fL [facility] NRBC abs 0.00 0.00 - 0.01 K/cumm [facility] Blood 12/02/2023 10:3 3 PM CDT 12/02/2023 11:33 PM CDT us Jef Rock NP LAB BLOOD ORDERABLES Final Result Performing Organization Address City/[facility]/ZIP Co de Phone Number [facility] [place] [address] * POCT glucose (12/02/2023 8:44 PM CDT) Glucose, POC 170 70 - 199 mg/dL Blood 12/02/2023 8:44 PM CDT 12/02/2023 8:44 PM CDT us Brennan Castillo MD LAB POCT ORDERABLES - DEVICE Fi nal Result Performing Organization Address City/[facility]/ZIP Co de Phone Number [facility] [place] [address] * POCT glucose (12/02/2023 5:08 PM CDT) Glucose, POC 104 70 - 199 mg/dL Blood 12/02/2023 5:08 PM CDT 12/02/2023 5:08 PM CDT Brennan Castillo MD LAB POCT ORDERABLES - DEVICE Fi nal Result Performing Organization Address [facility] de Phone Number [facility] [place] [address] * (ABNORMAL) POCT glucose (12/02/2023 11:18 AM CDT) Glucose, POC 214(H) 70 - 199 mg/dL Blood 12/02/2023 11:1 8 AM CDT 12/02/2023 11:18 AM CDT Brennan Castillo MD LAB POCT ORDERABLES - DEVICE Fi nal Result Performing Organization Address [facility] de Phone Number [facility] [place] [address] * POCT glucose (12/02/2023 7:40 AM CDT) Glucose, POC 169 70 - 199 mg/dL Blood 12/02/2023 7:40 AM CDT 12/02/2023 7:40 AM CDT Result [facility] Brennan Castillo MD LAB POCT ORDERABLES - DEVICE Fi nal Result Performing Organization Address [facility] de Phone Number [facility] [place] [address] * (ABNORMAL) eGFR (12/02/2023 5:32 AM CDT) [...] data was last reviewed 2021. Blood 12/02/2023 5:32 AM CDT 12/02/2023 6:06 AM CDT Jef Rock HEALTH CARE LIAISON LAB BLOOD ORDERABLES Final Result [facility] One [facility] [place] [address] * (ABNORMAL) Basic metabolic panel (12/02/2023 5:32 AM CDT) Sodium 139 135 - 145 mmol/L Potassium, pl 4.3 3.3 - 4.9 mmol/L [facility] Chloride 102 97 - 110 mmol/L [facility] CO2 28 22 - 32 mmol/L [facility] Anion gap 9 2 - 15 mmol/L [facility] BUN 32(H) 6 - 25 mg/dL [facility] Creatinine 1.74(H) 0.60 - 1.10 mg/dL [facility] Glucose 167 70 - 199 mg/dL [facility] Comment: Interpretive Data Fasting glucose >/= [...] 2022. Calcium 9.1 8.5 - 10.3 mg/dL [facility] Blood 12/02/2023 5:32 AM CDT 12/02/2023 6:06 AM CDT us Jef Rock NP LAB BLOOD ORDERABLES Final Result [facility] [place] [address] * (ABNORMAL) CBC without differential (12/02/2023 5:32 AM CDT) Pathologist [facility] WBC 6.8 3.8 - 9.9 K/cumm Hgb 9.7(L) 11.9 - 15.5 g/dL [facility] Hct 30.8(L) 35.6 - 45.5 % [facility] Plt 193 150 - 400 K/cumm [facility] MPV 9.8 9.1 - 12.3 fL [facility] RBC 3.60(L) 3.90 - 5.20 M/cumm [facility] MCV 85.6 81.3 - 96.4 fL [facility] MCH 26.9(L) 27.1 - 33.3 pg [facility] MCHC 31.5(L) 32.3 - 35.7 g/dL [facility] RDW CV 16.9(H) 11.1 - 14.9 % [facility] RDW SD 52.0(H) 35.7 - 48.1 fL [facility] NRBC abs 0.00 0.00 - 0.01 K/cumm [facility] Blood 12/02/2023 5:32 AM CDT 12/02/2023 6:06 AM CDT Result [facility] Jef Rock NP LAB BLOOD ORDERABLES Final Result Performing Organization Address [facility] de Phone Number [facility] [place] [address] * POCT glucose (12/02/2023 5:28 AM CDT) Glucose, POC 169 70 - 199 mg/dL Blood 12/02/2023 5:28 AM CDT 12/02/2023 5:28 AM CDT Result [facility] Brennan Castillo MD LAB POCT ORDERABLES - DEVICE Fi nal Result Performing Organization Address [facility] de Phone Number [facility] [place] [address] * POCT glucose (12/01/2023 8:32 PM CDT) Glucose, POC 164 70 - 199 mg/dL Blood 12/01/2023 8:32 PM CDT 12/01/2023 8:32 PM CDT Result [facility] Brennan Castillo MD LAB POCT ORDERABLES - DEVICE Fi nal Result Performing Organization Address [facility] de Phone Number [facility] [place] [address] * POCT glucose (12/01/2023 5:05 PM CDT) Glucose, POC 142 70 - 199 mg/dL Blood 12/01/2023 5:05 PM CDT 12/01/2023 5:05 PM CDT Brennan Castillo MD LAB POCT ORDERABLES - DEVICE Fi nal Result Performing Organization Address [facility]/ZIP [place] [address] * (ABNORMAL) Protein electrophoresis with reflex, serum (12/01/2023 4:00 PM CDT) Pathologist [facility] Protein, sr 6.5 6.2 - 8.2 g/dL Albumin 3.1(L) 3.2 - 5.0 g/dL [facility] Alpha-1 globulin 0.4 0.2 - 0.4 g/dL [facility] Alpha-2 globulin 1.0 0.5 - 1.0 g/dL [facility] Beta-1 globulin 0.5 0.3 - 0.6 g/dL [facility] Beta-2 globulin 0.5 0.2 - 0.6 g/dL [facility] Gamma globulin 1.0 0.5 - 1.7 g/dL [facility] SPEP interp Please see comment [facility] Comment: No apparent monoclonal peak Reviewed and signed by Prashanth Brown MD 12/02/2023 Blood 12/01/2023 4:00 PM CDT 12/01/2023 4:18 PM CDT us Arik Chase NP LAB BLOOD ORDERABLES Final R esult Performing Organization Address [facility] Co de Phone Number [facility] [place] [address] * (ABNORMAL) PTH (12/01/2023 4:00 PM CDT) Pathologist [facility] PTH 79(H) 15 - 65 pg/mL Blood 12/01/2023 4:00 PM CDT 12/01/2023 4:18 PM CDT Arik Chase NP LAB BLOOD ORDERABLES Final R esult Performing Organization Address City/[facility]/ZIP Co de Phone Number [place] [address] * POCT glucose (12/01/2023 11:54 AM CDT) Glucose, POC 157 70 - 199 mg/dL Blood 12/01/2023 11:5 4 AM CDT 12/01/2023 11:54 AM CDT Brennan Castillo MD LAB POCT ORDERABLES - DEVICE Fi nal Result Performing Organization Address City/[facility] [place] [address] * POCT glucose (12/01/2023 7:41 AM CDT) Glucose, POC 148 70 - 199 mg/dL Blood 12/01/2023 7:41 AM CDT 12/01/2023 7:41 AM CDT Brennan Castillo MD LAB POCT ORDERABLES - DEVICE Fi nal Result Performing Organization Address City/[facility]/ZIP [place] [address] * POCT glucose (12/01/2023 3:16 AM CDT) Glucose, POC 147 70 - 199 mg/dL Blood 12/01/2023 3:16 AM CDT 12/01/2023 3:16 AM CDT Brennan Castillo MD LAB POCT ORDERABLES - DEVICE Fi nal Result Performing Organization Address City/[facility] [place] [address] * (ABNORMAL) eGFR (11/30/2023 8:40 PM CDT) [...] CDT 11/30/2023 9:35 PM CDT Jef Rock HEALTH CARE LIAISON LAB BLOOD ORDERABLES Final Result [facility] One [facility] [place] [address] * (ABNORMAL) Basic metabolic panel (11/30/2023 8:40 PM CDT) Sodium 140 135 - 145 mmol/L Potassium, pl 4.4 3.3 - 4.9 mmol/L [facility] Chloride 99 97 - 110 mmol/L [facility] CO2 29 22 - 32 mmol/L [facility] Anion gap 12 2 - 15 mmol/L [facility] BUN 26(H) 6 - 25 mg/dL [facility] Creatinine 1.60(H) 0.60 - 1.10 mg/dL [facility] Glucose 130 70 - 199 mg/dL [facility] Comment: Interpretive Data Fasting glucose >/= [...] 2022. Calcium 9.6 8.5 - 10.3 mg/dL [facility] Blood 11/30/2023 8:40 PM CDT 11/30/2023 9:35 PM CDT Jef Rock HEALTH CARE LIAISON LAB BLOOD ORDERABLES Final Result [facility] One [facility] [place] [address] * (ABNORMAL) CBC without differential (11/30/2023 8:40 PM CDT) WBC 7.8 3.8 - 9.9 K/cumm Hgb 11.0(L) 11.9 - 15.5 g/dL [facility] Hct 34.6(L) 35.6 - 45.5 % [facility] Plt 205 150 - 400 K/cumm [facility] MPV 10.1 9.1 - 12.3 fL [facility] RBC 4.11 3.90 - 5.20 M/cumm [facility] MCV 84.2 81.3 - 96.4 fL [facility] MCH 26.8(L) 27.1 - 33.3 pg [facility] MCHC 31.8(L) 32.3 - 35.7 g/dL [facility] RDW CV 16.7(H) 11.1 - 14.9 % [facility] RDW SD 49.3(H) 35.7 - 48.1 fL [facility] NRBC abs 0.00 0.00 - 0.01 K/cumm [facility] Blood 11/30/2023 8:40 PM CDT 11/30/2023 9:35 PM CDT Jef Rock HEALTH CARE LIAISON LAB BLOOD ORDERABLES Final Result Performing Organization Address City/[facility] Co de Phone Number [facility] [place] [address] * POCT glucose (11/30/2023 8:29 PM CDT) Glucose, POC 139 70 - 199 mg/dL Blood 11/30/2023 8:29 PM CDT 11/30/2023 8:29 PM CDT Brennan Castillo MD LAB POCT ORDERABLES - DEVICE Fi nal Result Performing Organization Address [facility] Co de Phone Number [facility] [place] [address] * POCT glucose (11/30/2023 4:36 PM CDT) Glucose, POC 130 70 - 199 mg/dL Blood 11/30/2023 4:36 PM CDT 11/30/2023 4:36 PM CDT Brennan Castillo MD LAB POCT ORDERABLES - DEVICE Fi nal Result Performing Organization Address [facility] Co de Phone Number [facility] [place] [address] * POCT glucose (11/30/2023 12:04 PM CDT) Glucose, POC 147 70 - 199 mg/dL Blood 11/30/2023 12:0 4 PM CDT 11/30/2023 12:04 PM CDT Brennan Castillo MD LAB POCT ORDERABLES - DEVICE Fi nal Result Performing Organization Address [facility] de Phone Number [facility] [place] [address] * POCT glucose (11/30/2023 7:56 AM CDT) Glucose, POC 166 70 - 199 mg/dL Blood 11/30/2023 7:56 AM CDT 11/30/2023 7:56 AM CDT Result [facility] Brennan Castillo MD LAB POCT ORDERABLES - DEVICE Fi nal Result Performing Organization Address [facility] de Phone Number [facility] [place] [address] * POCT glucose (11/30/2023 1:56 AM CDT) Glucose, POC 170 70 - 199 mg/dL Blood 11/30/2023 1:56 AM CDT 11/30/2023 1:56 AM CDT Result [facility] Brennan Castillo MD LAB POCT ORDERABLES - DEVICE Fi nal Result Performing Organization Address [facility] de Phone Number [facility] [place] [address] * (ABNORMAL) eGFR (11/29/2023 10:32 PM CDT) eGFR 36(L) >=60 mL/min/1. 73 [...] CDT 11/29/2023 10:55 PM CDT Jef Rock HEALTH CARE LIAISON LAB BLOOD ORDERABLES Final Result [facility] One [facility] [place] [address] * (ABNORMAL) Basic metabolic panel (11/29/2023 10:32 PM CDT) Sodium 137 135 - 145 mmol/L Potassium, pl 4.1 3.3 - 4.9 mmol/L [facility] Chloride 100 97 - 110 mmol/L [facility] CO2 27 22 - 32 mmol/L [facility] Anion gap 10 2 - 15 mmol/L [facility] BUN 25 6 - 25 mg/dL [facility] Creatinine 1.50(H) 0.60 - 1.10 mg/dL [facility] Glucose 174 70 - 199 mg/dL [facility] Comment: Interpretive Data Fasting glucose >/= [...] 2022. Calcium 9.5 8.5 - 10.3 mg/dL [facility] Blood 11/29/2023 10:3 2 PM CDT 11/29/2023 10:55 PM CDT Jef Rock NP LAB BLOOD ORDERABLES Final Result [facility] [place] [address] * (ABNORMAL) CBC without differential (11/29/2023 10:32 PM CDT) [facility] WBC 8.9 3.8 - 9.9 K/cumm Hgb 10.7(L) 11.9 - 15.5 g/dL [facility] Hct 33.0(L) 35.6 - 45.5 % [facility] Plt 180 150 - 400 K/cumm [facility] MPV 10.1 9.1 - 12.3 fL [facility] RBC 3.97 3.90 - 5.20 M/cumm [facility] MCV 83.1 81.3 - 96.4 fL [facility] MCH 27.0(L) 27.1 - 33.3 pg [facility] MCHC 32.4 32.3 - 35.7 g/dL [facility] RDW CV 16.5(H) 11.1 - 14.9 % [facility] RDW SD 47.9 35.7 - 48.1 fL [facility] NRBC abs 0.00 0.00 - 0.01 K/cumm [facility] Blood 11/29/2023 10:3 2 PM CDT 11/29/2023 10:55 PM CDT Jef Rock HEALTH CARE LIAISON LAB BLOOD ORDERABLES Final Result Performing Organization Address [facility] [place] [address] * POCT glucose (11/29/2023 8:48 PM CDT) Glucose, POC 192 70 - 199 mg/dL Blood 11/29/2023 8:48 PM CDT 11/29/2023 8:48 PM CDT Brennan Castillo MD LAB POCT ORDERABLES - DEVICE Fi nal Result Performing Organization Address [facility] [place] [address] * POCT glucose (11/29/2023 5:21 PM CDT) Glucose, POC 175 70 - 199 mg/dL Blood 11/29/2023 5:21 PM CDT 11/29/2023 5:21 PM CDT Result [facility] Brennan Castillo MD LAB POCT ORDERABLES - DEVICE Fi nal Result Performing Organization Address [facility] Co de Phone Number [facility] [place] [address] * POCT glucose (11/29/2023 11:45 AM CDT) Glucose, POC 172 70 - 199 mg/dL Blood 11/29/2023 11:4 5 AM CDT 11/29/2023 11:45 AM CDT Brennan Castillo MD LAB POCT ORDERABLES - DEVICE Fi nal Result Performing Organization Address [facility] Co de Phone Number [facility] [place] [address] * POCT glucose (11/29/2023 7:49 AM CDT) Glucose, POC 167 70 - 199 mg/dL Blood 11/29/2023 7:49 AM CDT 11/29/2023 7:49 AM CDT Brennan Castillo MD LAB POCT ORDERABLES - DEVICE Fi nal Result Performing Organization Address [facility] Co de Phone Number [facility] [place] [address] * POCT glucose (11/29/2023 3:05 AM CDT) Glucose, POC 174 70 - 199 mg/dL Blood 11/29/2023 3:05 AM CDT 11/29/2023 3:05 AM CDT Brennan Castillo MD LAB POCT ORDERABLES - DEVICE Fi nal Result Performing Organization Address [facility] [place] [address] * (ABNORMAL) eGFR (11/28/2023 10:30 PM CDT) [...] Rock NP LAB BLOOD ORDERABLES Final Result [facility] [place] [address] * (ABNORMAL) Basic metabolic panel (11/28/2023 10:30 PM CDT) Pathologist [facility] Sodium 140 135 - 145 mmol/L Potassium, pl 3.9 3.3 - 4.9 mmol/L [facility] Chloride 104 97 - 110 mmol/L [facility] CO2 27 22 - 32 mmol/L [facility] Anion gap 9 2 - 15 mmol/L [facility] BUN 22 6 - 25 mg/dL [facility] Creatinine 1.44(H) 0.60 - 1.10 mg/dL [facility] Glucose 168 70 - 199 mg/dL [facility] Comment: Interpretive Data Fasting glucose >/= [...] 2022. Calcium 9.1 8.5 - 10.3 mg/dL [facility] Blood 11/28/2023 10:3 0 PM CDT 11/28/2023 11:23 PM CDT Jef Rock HEALTH CARE LIAISON LAB BLOOD ORDERABLES Final Result [facility] [place] [address] * (ABNORMAL) CBC without differential (11/28/2023 10:30 PM CDT) [facility] WBC 9.4 3.8 - 9.9 K/cumm Hgb 10.3(L) 11.9 - 15.5 g/dL [facility] Hct 33.1(L) 35.6 - 45.5 % [facility] Plt 179 150 - 400 K/cumm [facility] MPV 10.2 9.1 - 12.3 fL [facility] RBC 3.91 3.90 - 5.20 M/cumm [facility] MCV 84.7 81.3 - 96.4 fL [facility] MCH 26.3(L) 27.1 - 33.3 pg [facility] MCHC 31.1(L) 32.3 - 35.7 g/dL [facility] RDW CV 16.6(H) 11.1 - 14.9 % [facility] RDW SD 48.7(H) 35.7 - 48.1 fL [facility] NRBC abs 0.00 0.00 - 0.01 K/cumm [facility] Blood 11/28/2023 10:3 0 PM CDT 11/28/2023 11:24 PM CDT Jef Rock HEALTH CARE LIAISON LAB BLOOD ORDERABLES Final Result [facility] [place] [address] * POCT glucose (11/28/2023 7:36 PM CDT) Glucose, POC 172 70 - 199 mg/dL Blood 11/28/2023 7:36 PM CDT 11/28/2023 7:36 PM CDT Brennan Castillo MD LAB POCT ORDERABLES - DEVICE Fi nal Result Performing Organization Address City/[facility] Co de Phone Number [facility] [place] [address] * POCT glucose (11/28/2023 5:01 PM CDT) Glucose, POC 129 70 - 199 mg/dL Blood 11/28/2023 5:01 PM CDT 11/28/2023 5:01 PM CDT Brennan Castillo MD LAB POCT ORDERABLES - DEVICE Fi nal Result Performing Organization Address [facility] de Phone Number [facility] [place] [address] * POCT glucose (11/28/2023 11:33 AM CDT) Glucose, POC 131 70 - 199 mg/dL Blood 11/28/2023 11:3 3 AM CDT 11/28/2023 11:33 AM CDT Brennan Castillo MD LAB POCT ORDERABLES - DEVICE Fi nal Result Performing Organization Address City/[facility] Co de Phone Number [facility] [place] [address] * POCT glucose (11/28/2023 7:38 AM CDT) Glucose, POC 159 70 - 199 mg/dL Blood 11/28/2023 7:38 AM CDT 11/28/2023 7:38 AM CDT Brennan Castillo MD LAB POCT ORDERABLES - DEVICE Fi nal Result Performing Organization Address [facility] Co de Phone Number [facility] [place] [address] * POCT glucose (11/28/2023 1:26 AM CDT) Glucose, POC 172 70 - 199 mg/dL Blood 11/28/2023 1:26 AM CDT 11/28/2023 1:26 AM CDT Brennan Castillo MD LAB POCT ORDERABLES - DEVICE Fi nal Result Performing Organization Address [facility] de Phone Number [facility] [place] [address] * (ABNORMAL) eGFR (11/27/2023 10:51 PM CDT) [...] Rock NP LAB BLOOD ORDERABLES Final Result [facility] [place] [address] * (ABNORMAL) Basic metabolic panel (11/27/2023 10:51 PM CDT) Sodium 143 135 - 145 mmol/L Potassium, pl 4.0 3.3 - 4.9 mmol/L [facility] Chloride 105 97 - 110 mmol/L [facility] CO2 26 22 - 32 mmol/L [facility] Anion gap 12 2 - 15 mmol/L [facility] BUN 24 6 - 25 mg/dL [facility] Creatinine 1.51(H) 0.60 - 1.10 mg/dL [facility] Glucose 158 70 - 199 mg/dL [facility] Comment: Interpretive Data Fasting glucose >/= [...] 2022. Calcium 9.1 8.5 - 10.3 mg/dL [facility] Blood 11/27/2023 10:5 1 PM CDT 11/27/2023 11:30 PM CDT Jef Rock HEALTH CARE LIAISON LAB BLOOD ORDERABLES Final Result [facility] [place] [address] * (ABNORMAL) CBC without differential (11/27/2023 10:51 PM CDT) WBC 8.3 3.8 - 9.9 K/cumm Hgb 10.2(L) 11.9 - 15.5 g/dL [facility] Hct 32.7(L) 35.6 - 45.5 % [facility] Plt 168 150 - 400 K/cumm [facility] MPV 10.2 9.1 - 12.3 fL [facility] RBC 3.89(L) 3.90 - 5.20 M/cumm [facility] MCV 84.1 81.3 - 96.4 fL [facility] MCH 26.2(L) 27.1 - 33.3 pg [facility] MCHC 31.2(L) 32.3 - 35.7 g/dL [facility] RDW CV 16.1(H) 11.1 - 14.9 % [facility] RDW SD 48.1 35.7 - 48.1 fL [facility] NRBC abs 0.00 0.00 - 0.01 K/cumm [facility] Blood 11/27/2023 10:5 1 PM CDT 11/27/2023 11:30 PM CDT Jef Rock HEALTH CARE LIAISON LAB BLOOD ORDERABLES Final Result ANN [facility] [place] [address] * POCT glucose (11/27/2023 8:34 PM CDT) Glucose, POC 165 70 - 199 mg/dL Blood 11/27/2023 8:34 PM CDT 11/27/2023 8:34 PM CDT Brennan Castillo MD LAB POCT ORDERABLES - DEVICE Fi nal Result Performing Organization Address [facility] Co de Phone Number [facility] [place] [address] * POCT glucose (11/27/2023 5:11 PM CDT) Glucose, POC 113 70 - 199 mg/dL Blood 11/27/2023 5:11 PM CDT 11/27/2023 5:11 PM CDT Brennan Castillo MD LAB POCT ORDERABLES - DEVICE Fi nal Result Performing Organization Address [facility] Co de Phone Number [facility] [place] [address] * POCT glucose (11/27/2023 12:13 PM CDT) Glucose, POC 139 70 - 199 mg/dL Blood 11/27/2023 12:1 3 PM CDT 11/27/2023 12:13 PM CDT Brennan Castillo MD LAB POCT ORDERABLES - DEVICE Fi nal Result Performing Organization Address [facility] Co de Phone Number [facility] [place] [address] * POCT glucose (11/27/2023 7:49 AM CDT) Glucose, POC 198 70 - 199 mg/dL Blood 11/27/2023 7:49 AM CDT 11/27/2023 7:49 AM CDT Brennan Castillo MD LAB POCT ORDERABLES - DEVICE Fi nal Result Performing Organization Address [facility] Co de Phone Number [facility] [place] [address] * (ABNORMAL) eGFR (11/26/2023 10:44 PM CDT) [facility] eGFR 32(L) >=60 mL/min/1. 73 m2 Comment: [...] Rock NP LAB BLOOD ORDERABLES Final Result [facility] [place] [address] * (ABNORMAL) Basic metabolic panel (11/26/2023 10:44 PM CDT) [facility] Sodium 141 135 - 145 mmol/L Potassium, pl 4.2 3.3 - 4.9 mmol/L [facility] Chloride 106 97 - 110 mmol/L [facility] CO2 25 22 - 32 mmol/L [facility] Anion gap 10 2 - 15 mmol/L [facility] BUN 25 6 - 25 mg/dL [facility] Creatinine 1.67(H) 0.60 - 1.10 mg/dL [facility] Glucose 194 70 - 199 mg/dL [facility] Comment: Interpretive Data Fasting glucose >/= [...] 2022. Calcium 8.6 8.5 - 10.3 mg/dL [facility] Blood 11/26/2023 10:4 4 PM CDT 11/26/2023 11:45 PM CDT Jef Rock HEALTH CARE LIAISON LAB BLOOD ORDERABLES Final Result [facility] [place] [address] * (ABNORMAL) CBC without differential (11/26/2023 10:44 PM CDT) Pathologist [facility] WBC 8.6 3.8 - 9.9 K/cumm Hgb 9.4(L) 11.9 - 15.5 g/dL [facility] Hct 29.2(L) 35.6 - 45.5 % [facility] Plt 148(L) 150 - 400 K/cumm [facility] MPV 10.2 9.1 - 12.3 fL [facility] RBC 3.47(L) 3.90 - 5.20 M/cumm [facility] MCV 84.1 81.3 - 96.4 fL [facility] MCH 27.1 27.1 - 33.3 pg [facility] MCHC 32.2(L) 32.3 - 35.7 g/dL [facility] RDW CV 15.9(H) 11.1 - 14.9 % [facility] RDW SD 47.7 35.7 - 48.1 fL [facility] NRBC abs 0.00 0.00 - 0.01 K/cumm [facility] Blood 11/26/2023 10:4 4 PM CDT 11/26/2023 11:44 PM CDT Jef Rock NP LAB BLOOD ORDERABLES Final Result Performing Organization Address [facility] Co de Phone Number [facility] [place] [address] * POCT glucose (11/26/2023 7:44 PM CDT) Glucose, POC 191 70 - 199 mg/dL Blood 11/26/2023 7:44 PM CDT 11/26/2023 7:44 PM CDT Brennan Castillo MD LAB POCT ORDERABLES - DEVICE Fi nal Result Performing Organization Address [facility] de Phone Number [facility] [place] [address] * (ABNORMAL) POCT glucose (11/26/2023 5:18 PM CDT) Glucose, POC 208(H) 70 - 199 mg/dL Blood 11/26/2023 5:18 PM CDT 11/26/2023 5:18 PM CDT Brennan Castillo MD LAB POCT ORDERABLES - DEVICE Fi nal Result Performing Organization Address [facility] Co de Phone Number [facility] [place] [address] * POCT glucose (11/26/2023 11:53 AM CDT) Glucose, POC 169 70 - 199 mg/dL Blood 11/26/2023 11:5 3 AM CDT 11/26/2023 11:53 AM CDT us Brennan Castillo MD LAB POCT ORDERABLES - DEVICE Fi nal Result [facility] [place] [facility] [place] [address] * XR Spine Cervical 2 or 3 [...] it. Electronically signed by: Milind Nuñez MD us Brennan Castillo MD IMG XR PROCEDURES Final Result * POCT glucose (11/26/2023 8:09 AM CDT) Glucose, POC 157 70 - 199 mg/dL Blood 11/26/2023 8:09 AM CDT 11/26/2023 8:09 AM CDT us Brennan Castillo MD LAB POCT ORDERABLES - DEVICE Fi nal Result Performing Organization Address [facility] de Phone Number [facility] [place] [address] * POCT glucose (11/26/2023 1:22 AM CDT) Glucose, POC 185 70 - 199 mg/dL Blood 11/26/2023 1:22 AM CDT 11/26/2023 1:22 AM CDT Brennan Castillo MD LAB POCT ORDERABLES - DEVICE Fi nal Result Performing Organization Address [facility] de Phone Number [facility] [place] [address] * (ABNORMAL) POCT glucose (11/25/2023 8:07 PM CDT) Glucose, POC 217(H) 70 - 199 mg/dL Blood 11/25/2023 8:07 PM CDT 11/25/2023 8:07 PM CDT us Brennan Castillo MD LAB POCT ORDERABLES - DEVICE Fi nal Result Performing Organization Address [facility]/ZIP [place] [address] * Type and screen (11/25/2023 8:07 PM CDT) ABO Rh B Positive Janeth, indirect Negative [facility] Blood 11/25/2023 8:07 PM CDT 11/25/2023 8:58 PM CDT Narrative [facility] - 11/25/2023 9:55 PM CDT Has the patient had Daratumumab or Isatuximab in the past 6 months?->Unknown Brennan Castillo MD LAB BLOOD BANK TEST ORDERABLES Final Result Performing Organization Address [facility] [place] [address] * POCT glucose (11/25/2023 4:41 PM CDT) Glucose, POC 181 70 - 199 mg/dL Blood 11/25/2023 4:41 PM CDT 11/25/2023 4:41 PM CDT Brennan Castillo MD LAB POCT ORDERABLES - DEVICE Fi nal Result Performing Organization Address [facility] Co de Phone Number [facility] [place] [address] * POCT glucose (11/25/2023 12:07 PM CDT) Glucose, POC 165 70 - 199 mg/dL Blood 11/25/2023 12:0 7 PM CDT 11/25/2023 12:07 PM CDT Brennan Castillo MD LAB POCT ORDERABLES - DEVICE Fi nal Result Performing Organization Address [facility] Co de Phone Number [facility] [place] [address] * POCT glucose (11/25/2023 9:59 AM CDT) Glucose, POC 138 70 - 199 mg/dL Blood 11/25/2023 9:59 AM CDT 11/25/2023 9:59 AM CDT Brennan Castillo MD LAB POCT ORDERABLES - [place]ICE [place] [address] * POCT glucose (11/25/2023 8:55 AM CDT) Glucose, POC 122 70 - 199 mg/dL Blood 11/25/2023 8:55 AM CDT 11/25/2023 8:55 AM CDT Brennan Castillo MD LAB POCT ORDERABLES - DEVICE Fi nal Result Performing Organization Address City/[facility]/ZIP [place] [address] * POCT glucose (11/25/2023 8:04 AM CDT) Glucose, POC 128 70 - 199 mg/dL Blood 11/25/2023 8:04 AM CDT 11/25/2023 8:04 AM CDT Brennan Castillo MD LAB POCT ORDERABLES - [place] [address] * POCT glucose (11/25/2023 7:13 AM CDT) Glucose, POC 131 70 - 199 mg/dL Blood 11/25/2023 7:13 AM CDT 11/25/2023 7:13 AM CDT Brennan Castillo MD LAB POCT ORDERABLES - DEVICE Fi nal Result Performing Organization Address [facility] de Phone Number [facility] [place] [address] * POCT glucose (11/25/2023 6:22 AM CDT) Glucose, POC 128 70 - 199 mg/dL Blood 11/25/2023 6:22 AM CDT 11/25/2023 6:22 AM CDT Brennan Castillo MD LAB POCT ORDERABLES - DEVICE Fi nal Result Performing Organization Address [facility] de Phone Number [facility] [place] [address] * POCT glucose (11/25/2023 5:18 AM CDT) Glucose, POC 147 70 - 199 mg/dL Blood 11/25/2023 5:18 AM CDT 11/25/2023 5:18 AM CDT Brennan Castillo MD LAB POCT ORDERABLES - DEVICE Fi nal Result Performing Organization Address [facility] [place] [address] * (ABNORMAL) eGFR (11/25/2023 4:39 AM CDT) [...] MD LAB BLOOD ORDERABLES Final Resu lt [facility] [place] [address] * (ABNORMAL) Basic metabolic panel (11/25/2023 4:39 AM CDT) Sodium 141 135 - 145 mmol/L Potassium, pl 4.3 3.3 - 4.9 mmol/L [facility] Chloride 106 97 - 110 mmol/L [facility] CO2 26 22 - 32 mmol/L [facility] Anion gap 9 2 - 15 mmol/L [facility] BUN 16 6 - 25 mg/dL [facility] Creatinine 1.28(H) 0.60 - 1.10 mg/dL [facility] Glucose 137 70 - 199 mg/dL [facility] Comment: Interpretive Data Fasting glucose >/= [...] 2022. Calcium 8.5 8.5 - 10.3 mg/dL [facility] Blood 11/25/2023 4:39 AM CDT 11/25/2023 4:45 AM CDT us Brennan Castillo MD LAB BLOOD ORDERABLES Final Resu lt [facility] One [facility] [place] [address] * (ABNORMAL) CBC without differential (11/25/2023 4:39 AM CDT) WBC 18.6(H) 3.8 - 9.9 K/cumm Hgb 10.9(L) 11.9 - 15.5 g/dL [facility] Hct 33.4(L) 35.6 - 45.5 % [facility] Plt 244 150 - 400 K/cumm [facility] MPV 9.7 9.1 - 12.3 fL [facility] RBC 4.08 3.90 - 5.20 M/cumm [facility] MCV 81.9 81.3 - 96.4 fL [facility] MCH 26.7(L) 27.1 - 33.3 pg [facility] MCHC 32.6 32.3 - 35.7 g/dL [facility] RDW CV 14.9 11.1 - 14.9 % [facility] RDW SD 44.2 35.7 - 48.1 fL [facility] NRBC abs 0.00 0.00 - 0.01 K/cumm [facility] Blood 11/25/2023 4:39 AM CDT 11/25/2023 4:46 AM CDT us Brennan Castillo MD LAB BLOOD ORDERABLES Final Resu lt Performing Organization Address [facility] Co de Phone Number [facility] [place] [address] * POCT glucose (11/25/2023 4:00 AM CDT) Glucose, POC 135 70 - 199 mg/dL Blood 11/25/2023 4:00 AM CDT 11/25/2023 4:00 AM CDT us Brennan Castillo MD LAB POCT ORDERABLES - DEVICE Fi nal Result Performing Organization Address [facility] Phone Number [facility] [place] [address] * POCT glucose (11/25/2023 2:00 AM CDT) Glucose, POC 137 70 - 199 mg/dL Blood 11/25/2023 2:00 AM CDT 11/25/2023 2:00 AM CDT us Brennan Castillo MD LAB POCT ORDERABLES - DEVICE Fi nal Result Performing Organization Address [facility] de Phone Number [facility] [place] [address] * POCT glucose (11/25/2023 12:56 AM CDT) Glucose, POC 119 70 - 199 mg/dL Blood 11/25/2023 12:5 6 AM CDT 11/25/2023 12:56 AM CDT us Brennan Castillo MD LAB POCT ORDERABLES - DEVICE Fi nal Result Performing Organization Address [facility] Co de Phone Number [facility] [place] [address] * POCT glucose (11/24/2023 11:16 PM CDT) Glucose, POC 140 70 - 199 mg/dL Blood 11/24/2023 11:1 6 PM CDT 11/24/2023 11:16 PM CDT Brennan Castillo MD LAB POCT ORDERABLES - DEVICE Fi nal Result Performing Organization Address [facility] [place] [address] * Transfuse RBC (11/24/2023 11:15 PM CDT) Blood Brennan Csatillo MD BLOOD TRANSFUSION ORDERABLES Fi nal Result Performing Organization Address City/[facility] Co de Phone Number [facility] [place] [address] * Transfuse RBC: 1 Units (11/24/2023 11:15 PM CDT) Blood us Brennan Castillo MD BLOOD TRANSFUSION ORDERABLES Fi nal Result * POCT glucose (11/24/2023 10:03 PM CDT) Glucose, POC 118 70 - 199 mg/dL Blood 11/24/2023 10:0 3 PM CDT 11/24/2023 10:03 PM CDT us Brennan Castillo MD LAB POCT ORDERABLES - DEVICE Fi nal Result Performing Organization Address City/[facility] Co de Phone Number [facility] [place] [address] * (ABNORMAL) eGFR (11/24/2023 10:01 PM CDT) [...] 1 PM CDT 11/24/2023 10:25 PM CDT us Brennan Castillo MD LAB BLOOD ORDERABLES Final Resu lt [facility] [place] [address] * (ABNORMAL) aPTT (11/24/2023 10:01 PM CDT) [...] ORDERABLES Final Resu lt Performing Organization Address [facility] de Phone Number [facility] [place] [address] * Protime-INR (11/24/2023 10:01 PM CDT) PT 12.2 10.3 - 13.7 sec INR 1.07 0.90 - 1.20 [facility] Comment: Interpretive data Oral anticoagulant therapeutic ranges: Venous thromboembolism prophylaxis or treatment: 2.0-3.0 CARDIOLOGY Standard range: 2.0-3.0 High-intensity range: 2.5-3.5 Refer to indication-specific guidelines for appropriate target ranges for prosthetic heart valve replacement. Current interpretive data was last revised on 2019. Blood 11/24/2023 10:0 1 PM CDT 11/24/2023 10:28 PM CDT Result [facility] Brennan Castillo MD LAB BLOOD ORDERABLES Final Resu lt Performing Organization Address [facility] de Phone Number [facility] [place] [address] * (ABNORMAL) Basic metabolic panel (11/24/2023 10:01 PM CDT) Sodium 142 135 - 145 mmol/L Potassium, pl 4.2 3.3 - 4.9 mmol/L [facility] Chloride 107 97 - 110 mmol/L [facility] CO2 26 22 - 32 mmol/L [facility] Anion gap 9 2 - 15 mmol/L [facility] BUN 16 6 - 25 mg/dL [facility] Creatinine 1.30(H) 0.60 - 1.10 mg/dL [facility] Glucose 142 70 - 199 mg/dL [facility] Comment: Interpretive Data Fasting glucose >/= [...] 2022. Calcium 9.0 8.5 - 10.3 mg/dL [facility] Blood 11/24/2023 10:0 1 PM CDT 11/24/2023 10:25 PM CDT us Brennan Castillo MD LAB BLOOD ORDERABLES Final Resu lt [facility] [place] [address] * (ABNORMAL) CBC without differential (11/24/2023 10:01 PM CDT) WBC 17.3(H) 3.8 - 9.9 K/cumm Hgb 11.5(L) 11.9 - 15.5 g/dL [facility] Hct 35.8 35.6 - 45.5 % [facility] Plt 227 150 - 400 K/cumm [facility] MPV 10.0 9.1 - 12.3 fL [facility] RBC 4.35 3.90 - 5.20 M/cumm [facility] MCV 82.3 81.3 - 96.4 fL [facility] MCH 26.4(L) 27.1 - 33.3 pg [facility] MCHC 32.1(L) 32.3 - 35.7 g/dL [facility] RDW CV 14.8 11.1 - 14.9 % [facility] RDW SD 44.0 35.7 - 48.1 fL [facility] NRBC abs 0.00 0.00 - 0.01 K/cumm [facility] Blood 11/24/2023 10:0 1 PM CDT 11/24/2023 10:25 PM CDT Result [facility] us Brennan Castillo MD LAB BLOOD ORDERABLES Final Resu lt Performing Organization Address [facility] de Phone Number [facility] [place] [address] * POCT glucose (11/24/2023 9:07 PM CDT) Glucose, POC 162 70 - 199 mg/dL Blood 11/24/2023 9:07 PM CDT 11/24/2023 9:07 PM CDT Result [facility] Brennan Castillo MD LAB POCT ORDERABLES - DEVICE Fi nal Result Performing Organization Address [facility] de Phone Number [facility] [place] [address] * POCT glucose (11/24/2023 8:00 PM CDT) Glucose, POC 154 70 - 199 mg/dL Blood 11/24/2023 8:00 PM CDT 11/24/2023 8:00 PM CDT Result [facility] us Brennan Castillo MD LAB POCT ORDERABLES - DEVICE Fi nal Result Performing Organization Address [facility] de Phone Number [facility] [place] [address] * POCT glucose (11/24/2023 6:58 PM CDT) Glucose, POC 196 70 - 199 mg/dL Blood 11/24/2023 6:58 PM CDT 11/24/2023 6:58 PM CDT Result [facility] us Brennan Castillo MD LAB POCT ORDERABLES - DEVICE Fi nal Result [facility] [place] [address] * Prepare RBC: 1 Units (11/24/2023 6:19 PM CDT) Product code [id number] Unit Number [id number] [facility] Product Blood Type BNEG [facility] Dispense Status PRESUMED TRANSFUSED [facility] Blood 11/24/2023 6:19 PM CDT 11/24/2023 6:19 PM CDT Narrative [facility] - 11/25/2023 12:49 AM CDT Other indication->cervical myelopathy Are special requirements needed? (All products are leukoreduced and CMV- safe)- >No Date required:-20231124 LRRBC # of [id number] Reasons:-Other (specify)} Brennan Castillo MD BLOOD BANK PRODUCT ORDERABLES F inal Result Performing Organization Address [facility]/ZIP Co de Phone Number [facility] [place] [address] * POCT glucose (11/24/2023 6:06 PM CDT) Pathologist [facility] Glucose, POC 147 70 - 199 mg/dL Blood 11/24/2023 6:06 PM CDT 11/24/2023 6:06 PM CDT Brennan Castillo MD LAB POCT ORDERABLES - DEVICE Fi nal Result Performing Organization Address City/[facility]/ZIP Co de Phone Number [facility] [place] [address] * (ABNORMAL) POC Blood Gas and Chemistries, Arterial - (11/24/2023 4:55 PM CDT) Pathologist [facility] pH, Art POC 7.34(L) 7.35 - 7.45 pCO2, Art POC 49(H) 35 - 45 mmHg [facility] pO2, Art POC 176(H) 83 - 108 mmHg [facility] Na, POC 140 135 - 145 mmol/L [facility] K POC 4.1 3.3 - 4.9 mmol/L [facility] Comment: Interpretive Data Not all point of care methods assess for hemolysis. Confirm with instrument and retest K+ if not consistent with clinical signs and symptoms. Current Interpretive Data was last revised on 2023. Cl, POC 108 97 - 110 mmol/L [facility] Ionized Ca, POC 4.91 4.50 - 5.10 mg/dL [facility] Glucose, POC 174 70 - 199 mg/dL [facility] Lactate, POC 1.3 0.7 - 2.2 mmol/L [facility] SO2 (mono) arterial 100(H) 90 - 95 % [facility] Base excess, POC 0.3 mmol/L [facility] HCO3, Art POC 26 20 - 30 mmol/L [facility] Hct, POC 29.0(L) 36.3 - 45.3 % [facility] O2 Sat, Art POC (Calc) 100 % [facility] Total Hb, POC 9.6(L) 11.9 - 15.5 g/dL [facility] Blood 11/24/2023 4:55 PM CDT 11/24/2023 4:55 PM CDT us Brennan Castillo MD LAB POCT ORDERABLES - DEVICE Fi nal Result Performing Organization Address City/[facility]/ZIP Co de Phone Number [facility] [place] [address] * Transfuse RBC (11/24/2023 4:52 PM CDT) Blood us Amarilys Boss MD PhD BLOOD TRANSFUSION ORDERABLES Final Result Performing Organization Address City/[facility]/ZIP Co de Phone Number [facility] [place] [address] * FL Fluoroscopy < 1 Hour (11/24/2023 4:31 PM CDT) Narrative [facility] - 11/24/2023 4:31 PM CDT The images from this study are not interpreted by Radiology. ??Please refer to the physician's procedure / OR operative note. Brennan Castillo MD IMG FLUOROSCOPY PROCEDURES Jessica l Result [facility] * (ABNORMAL) POC Blood Gas and Chemistries, Arterial - (11/24/2023 3:20 PM CDT) pH, Art POC 7.36 7.35 - 7.45 pCO2, Art POC 44 35 - 45 mmHg [facility] pO2, Art POC 220(H) 83 - 108 mmHg [facility] Na, POC 141 135 - 145 mmol/L [facility] K POC 3.5 3.3 - 4.9 mmol/L [facility] Comment: Interpretive Data Not all point of care methods assess for hemolysis. Confirm with instrument and retest K+ if not consistent with clinical signs and symptoms. Current Interpretive Data was last revised on 2023. Cl, POC 107 97 - 110 mmol/L [facility] Ionized Ca, POC 5.00 4.50 - 5.10 mg/dL [facility] Glucose, POC 155 70 - 199 mg/dL [facility] Lactate, POC 1.2 0.7 - 2.2 mmol/L [facility] SO2 (mono) arterial 99(H) 90 - 95 % [facility] Base excess, POC -0.6 mmol/L [facility] HCO3, Art POC 25 20 - 30 mmol/L [facility] Hct, POC 26.0(L) 36.3 - 45.3 % [facility] O2 Sat, Art POC (Calc) 100 % [facility] Total Hb, POC 8.8(L) 11.9 - 15.5 g/dL [facility] Blood 11/24/2023 3:20 PM CDT 11/24/2023 3:20 PM CDT Brennan Castillo MD LAB POCT ORDERABLES - DEVICE Fi nal Result [facility] [place] [address] * Prepare RBC: 1 Units (11/24/2023 3:09 PM CDT) Product code [id number] Unit Number [id number] [facility] Product Blood Type BNEG [facility] Dispense Status PRESUMED TRANSFUSED [facility] Blood 11/24/2023 3:09 PM CDT 11/24/2023 3:09 PM CDT Narrative [facility] - 11/25/2023 12:49 AM CDT Are special requirements needed? (All products are leukoreduced and CMV- safe)- >No Date required:-20231124 LRRBC # of [id number] Reasons:-Intra-op transfusion} Amarilys Boss MD PhD BLOOD BANK PRODUCT ORDERABLES Final Result Performing Organization Address City/[facility]/ZIP Co de Phone Number [facility] [place] [address] * POCT glucose (11/24/2023 2:29 PM CDT) Glucose, POC 154 70 - 199 mg/dL Blood 11/24/2023 2:29 PM CDT 11/24/2023 2:29 PM CDT Brennan Castillo MD LAB POCT ORDERABLES - DEVICE Fi nal Result Performing Organization Address City/[facility]/ZIP Co de Phone Number [facility] [place] [address] * Check Sample (11/24/2023 12:07 PM CDT) ABO Rh B Positive [facility] HCLL OTHER 11/24/2023 12:0 7 PM CDT 11/24/2023 12:46 PM CDT Brennan Castillo MD LAB BLOOD ORDERABLES Final Resu lt Performing Organization Address City/[facility]/ZIP Co de Phone Number [facility] [place] [address] BJ * POCT glucose (11/24/2023 12:03 PM CDT) [facility] Signature Glucose, POC 179 70 - 199 mg/dL Blood 11/24/2023 12:0 3 PM CDT 11/24/2023 12:03 PM CDT Brennan Castillo MD LAB POCT ORDERABLES - DEVICE Fi nal Result Performing Organization Address 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, Starting on Fri11/25/23 at 1814 bisacodyL (DULCOLAX) suppository 10 mg 10 mg, rectal, Daily, First dose (after last modification) on Fri11/28/23 at 1015, Indications: constipationIndications:constipation Given 12/03/2023 8:46 AM CDT 10 mg Given 11/30/2023 8:36 AM CDT 10 mg Given 11/28/2023 2:25 PM CDT 10 mg cloNIDine (CATAPRES) tablet 0.1 mg 0.1 mg, [...] on Fri12/04/23 at 0900, Indications: non-bleeding gastric disorderIndications:non-blee ding gastric disorder Given 12/04/2023 9:39 AM CDT 10 mg fluticasone propionate (FLONASE) 50 mcg/actuation nasal [...] Given 12/03/2023 9:29 PM CDT 100 mg insulin glargine (LANTUS, SEMGLEE) 100 unit/mL [...] CDT 6 Units Le ft Lower Abdomen lidocaine (ASPERCREME) 4 % patch 2 patch [...] Given 12/03/2023 9:28 PM CDT 500 mg methylPREDNISolone acetate (DEPO-medrol) injection As needed, Starting on Fri11/24/23 at 1519, Intra-Op Given 11/24/2023 3:19 PM CDT 80 mg ondansetron (ZOFRAN) injection 4 mg 4 [...] Given 12/03/2023 6:26 PM CDT 5 mg polyethylene glycol (MIRALAX) packet 17 g 17 [...] PM CDT 40 mg sodium chloride 0.9% flush 0.5-20 mL 0.5-20 mL, intra-catheter, Every 8 hours scheduled, First dose on Fri11/25/23 at 2200, Flush volume based on line type and size. , Indications: FlushingIndications:Flushing Given 12/04/2023 5:31 AM CDT 10 mL Given 12/03/2023 9:30 PM CDT 10 mL Given 12/03/2023 12:10 PM CDT 10 mL sodium chloride 0.9% irrigation As needed, Starting on Fri11/24/23 at 1251, Intra-Op Given 11/24/2023 12:59 PM CDT 1,000 mL Given 11/24/2023 12:52 PM CDT 1,000 mL Given 11/24/2023 12:51 PM CDT 1,000 mL thrombin-recombinant 5,000 unit topical solution As needed, Starting on Fri11/24/23 at 1302, Intra-Op Given 11/24/2023 1:02 PM CDT 10,000 Units documented in this encounter Discontinued Medications Medication Sig Discontinue Reason Start Date End Da te aspirin 81 mg enteric coated tabletIndications:pre vention of thrombosis Take 1 tablet (81 mg total) 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 11/28/2023 apixaban (ELIQUIS) 5 mg [...] Provider: Nancy Mercedes)2352 (Given - Provider: Kassi Zafar, SEBASTIÁN) 0531 (Given - Provider: Kassi Zafar RN)1234 [...] Indications: hypertension 0850 (Given - Provider: Nancy eMrcedes)2044 (Given - Provider: Fran Valdez RN) 0846 (Given - Provider: Nancy Mercedes)2128 (Given - Provider: Kassi Zafar RN) 0939 [...] 0752 (Held by Provider - Provider: Andi Simmons NP - Reason: Other - Comment: Elevated creat)0900 [...] Provider: Nancy Mercedes)1545 (Given - Provider: Nancy Mercedes)204 (Given - Provider: Fran Valdez RN) 0846 (Given - Provider: Nancy Mercedes)1710 (Given - Provider: Nancy Mercedes)2128 (Given - Provider: Kassi Zafar RN) 0939 (Given - Provider: Naomy Ochoa)1533 (Given [...] Provider: Nancy Mercedes)1710 (Given - Provider: Nancy Mecredes) 0939 (Given - Provider: Naomy Ochoa)1234 (Given [...] Nancy Mercedes)2353 (Medication Removed - Provider: Kassi Zafar RN) 1533 (Medication Applied - Provider: Naomy Ochoa [...] Valdez RN) 0846 (Given - Provider: Nancy Mercedes)1709 (Given - Provider: Nancy Mercedes)2127 (Given - Provider: Kassi Zafar RN) 0939 (Given - Provider: Naomy Ochoa)153 (Given - Provider: Naomy Ochoa) polyethylene glycol [...] , Indications: Flushing 0521 (Given - Provider: rFan Valdez RN) sodium chloride 0.9% flush 0.5-20 mL 0.5-20 mL, intra-catheter, Every 8 hours scheduled, First dose on Fri11/25/23 at 2200, Flush volume based on line type and size. 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), 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, Starting on Fri11/25/23 at 1814 Carrier [...] Count Last Ordered Date First Ordered Date enoxaparin (LOVENOX) syringe 30 mg 2 202311/25/2023 famotidine (PEPCID) tablet 10 mg 1 12/03/19 famotidine (PEPCID) tablet 20 mg 2 12/03/19 24 11/25/2023 heparin 5,000 unit/mL inject ion 5,000 Units 1 12/03/2023 lactulose 0.67 gram/mL oral solution 20 g 1 12/03/2023 lidocaine (ASPERCREME) 4 % patch 2 patch 1 12/02/2023 insulin glargine (LANTUS, SE MGLEE) 100 unit/mL injection 16 Units 2 12/01/2023 11/25/2023 sodium chloride 0.9% bolus 500 mL 1 024 bisacodyL (DULCOLAX) suppository 10 mg 2 11/25/2023 docusate with cottonseed oil enema 1 2023 magnesium hydroxide (MILK OF MAGNESIA) 80 mg/mL (33.3 mg/mL as elemental magnesium) oral suspension 30 mL 1 11/28/2023 furosemide (LASIX) tablet 40 mg 1 insulin glargine (LANTUS, SE MGLEE) 100 unit/mL injection 15 Units 1 11/27/2023 cyclobenzaprine (FLEXERIL) tablet 5 mg 1 insulin lispro (HumaLOG, ADM ELOG) 100 unit/mL injection 6 Units 1 11/26/2023 methocarbamoL (ROBAXIN) tablet 500 mg 1 acetaminophen (TYLENOL) tablet 1,000 mg 2 0 11/25/2023 11/24/2023 albuterol HFA (PROVENTIL HFA ,VENTOLIN HFA,PROAIR HFA) 90 mcg/actuation inhaler 2 puff 2 11/25/2023 Carrier Fluids for Secondary Infusion - 0.9% Sodium Chloride 3 11/25/2023 11/24/2023 cloNIDine (CATAPRES) tablet 0.1 mg 1 2023 dextrose (D10W) 10% bolus 250 mL 3 11/25/19 24 11/24/2023 dextrose gel in packet 15 g 3 11/25/2023 11/24/2023 fluticasone propionate (FLON ASE) 50 mcg/actuation nasal spray 2 spray 1 11/25/2023 glucagon injection 1 mg 3 11/25/202311/11 insulin lispro (HumaLOG, ADM ELOG) 100 unit/mL injection 0-4 Units 1 11/25/2023 insulin lispro (HumaLOG, ADM ELOG) 100 unit/mL injection 0-5 Units 2 11/25/2023 insulin lispro (HumaLOG, ADM ELOG) 100 unit/mL injection 5 Units 1 11/25/2023 ondansetron (ZOFRAN) injection 4 mg 1 11/24 ondansetron ODT (ZOFRAN-ODT) disintegrating tablet 4 mg 1 11/25/2023 oxyCODONE (ROXICODONE) tablet 5 mg 1 2023 polyethylene glycol (MIRALAX) packet 17 g 1 11/25/2023 senna-docusate (PERICOLACE) 8.6-50 mg per tablet 2 tablet 1 11/25/2023 simvastatin (ZOCOR) tablet 40 mg 1 11/25/19 sodium chloride 0.9% flush 0.5-20 mL 5 11/1111/24/2023 ceFAZolin (ANCEF) 2,000 mg/2 0 mL in sterile water (premix) 2,000 mg 2 11/24/2023 gabapentin (NEURONTIN) capsule 100 mg 1 gabapentin (NEURONTIN) capsule 300 mg 1 HYDROmorphone (DILAUDID) injection 0.2 mg 1 11/24/2023 insulin regular bolus from bag 4-10 Units 2 11/24/2023 insulin regular bolus from bag 4-6 Units 2 11/24/2023 insulin regular in 0.9% sodi um chloride (MYXREDLIN) 100 unit/100 mL (1 unit/mL) infusion (premix) 2 11/24/2023 Lactated Ringer's (LR) infusion 2 Lactated Ringer's (LR) infus ion - ADS Override Pull 1 11/24/2023 phenylephrine in 0.9% sodium chloride (CHELSI-SYNEPHRINE) 25,000 mcg/250 mL (100 mcg/mL) infusion (premix) solution 1 11/24/2023 sodium chloride 0.9% infusion 1 11/24/2023 sodium chloride 0.9% IVPB 0-250 mL 1 2023 vancomycin 1500 mg/515 mL in sodium chloride 0.9% (premix) 1,500 mg 2 11/24/2023 Lab Orders Without Results Count Last [...] 11/24/2023 documented in this encounter Care Teams Kick Plate Installer Relationship Specialty Start Date End [place] [address] PCP - General 08/03/19 documented as of this encounter
--- OUTSIDE RECORDS SUMMARY | 2024-07-11 22:37 | XMS_ITS | Encounter Summary ---
Author Organization [facility] Medical [facility] Address [address] [place] [address] Care Team Providers Care Tissue Specialist Name Role Phone Lalito England MD Primary Care Provider [phone] Encounter Details Date Type Department Care Team (Late st Contact Info) Description 04/09/2023 Orders Only [facility] [address] [place] [address] Lalito England MD [address] [place] [address] Social History Tobacco Use Types Packs/Day Years Used Date Smoking Tobacco: Never Smokeless Tobacco: Never Alcohol Use Standard Drinks/Week Comments Yes 0 (1 standard drink = 0.6 oz pur e alcohol) occasional AUDIT-C Answer Date Recorded Q1: How often do you have a drink containing alc ohol? Monthly or less 01/16/2022 Q2: How many drinks containi ng alcohol do you have on a typical day when you are drinking? 1 or 2 01/16/2022 Q3: How often do you have si x or more drinks on one occasion? Never 01/16/2022 Overall Financial Resource Strain (CARDIA) Answe r Date Recorded How hard is it for you to pa y for the very basics like food, housing, medical care, and heating? Not very hard 07/16/2022 PHQ-2 Answer Date Recorded PHQ-2 Total Score (If total score is 3 or more points, staff should administer the PHQ-9) 0 03/28/2023 PRAPARE - Transportation Answer Date Re corded [...] a nursing home (including now)? 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
--- OUTSIDE RECORDS SUMMARY | 2024-07-11 22:37 | XMS_ITS | Encounter Summary ---
Author Organization [facility] Medical [facility] Address [address] [place] [address] Care Team Providers Care Machine Straw Hat Presser Name Role Phone Lalito England MD Primary Care Provider [phone] Reason for Visit * Reason Onset Date Comments Call Back 02/26/2023 Encounter Details Date Type Department Care Team (Late st Contact Info) Description 02/26/2023 Telephone [facility] [address] [place] [address] Lalito England MD [address] [place] [address] Call Back Social History Tobacco Use Types [...] points, staff should administer the PHQ-9) 1 07/24/2022 PRAPARE - Transportation Answer Date Re corded [...] a group home (including now)? 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 England. Prescription for semaglutide [facility] to [facility]. * Telephone Encounter - Mandie Ignacio - 02/27/2023 9:33 AM CDT Call Back Caller???s Concern: Patient returned call from office about medication. Cs referenced notes to ask patient if she want Ozempic sent to her pharmacy. Patient said yes she would like ozempic sent to pharmacy. She will be out of insulin on Friday. Cs verified pharmacy. Caller???s Call back #: [phone] Does message need to be routed? Yes-Action Needed * Telephone Encounter - Devi George MA - 02/27/2023 9:26 AM CDT Attempted to contact pt. No answer. Is pt wanting ozempic sent in? * Telephone Encounter - Mandie Ignacio - 02/26/2023 11:24 AM CDT Medical Question/Miscellaneous Caller???s Concern: Patient called stating that t her insureance isn't going pay for the Novolog pen injection and the Lantes pen injection. Patient medication will only last until Friday before she is out. The insurance will ozempic . Caller???s Call back #: [phone] Does message need to be routed? Yes-Action Needed documented in this encounter Plan of Treatment Not on file documented as of this encounter Visit Diagnoses Diagnosis Type 2 diabetes mellitus with stage 3b chronic kidney disease, with long-term current use of insulin (HCC)- Primary Type 2 diabetes mellitus with diabetic neuropathy, without long-term current use of insulin (HCC) Type 2 diabetes mellitus with hyperlipidemia (HCC) documented in this encounter Care Teams Machine Straw Hat Presser Relationship Specialty Start Date End Date Lalito England MD [address] [place] [address] PCP - General 08/03/19 documented as of this encounter
--- OUTSIDE RECORDS SUMMARY | 2024-07-11 22:37 | XMS_ITS | Encounter Summary ---
Author Organization [facility] Address [address] [place] [address] Care Team Providers Care Retail Store Associate Name Role Phone Lalito England MD Primary Care Provider [phone] Reason for Visit * Reason Onset Date Comments Referral Request 02/07/2023 Encounter Details Date Type Department Care Team (Late st Contact Info) Description 02/07/2023 Telephone [facility] [address] [place] [address] Lalito England MD [address] [place] [address] Referral Request Social History Tobacco [...] in a long-term (including now)? 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 Gender Identity Not on file Sexual Orientation Not on file documented as of this encounter Miscellaneous Notes * Telephone Encounter - Stormy Ibrahim - 02/07/2023 12:31 PM CDT Referral faxed, received confirmation; patient aware * Telephone Encounter - Lindy Andrea - 02/07/2023 12:08 PM CDT Referral Provider Name (if patient is seeing a nurse practitioner or physician legal support assistant, list the UNDER CUTTER/PA, but also their collaborating doctor): Dr Tito Pierre Specialty: Pulmonary Address: [address] [place] [address], Zip: [place], [place] [address] Diagnosis Code/Symptom/Reason Patient is being seen: sarcoidosis Date of Appointment: 02/07/23 @ 1230pm NPI#: [id number] Tax ID#: [id number] Is insurance in chart up to date? yes Caller???s Callback #: [phone] Additional Comments: Sending high priority. Appointment there now Does message need to be routed? Yes-Action Needed documented in this encounter Plan of Treatment Not on file documented as of this encounter Visit Diagnoses Not on filedocumented in this encounter Care Teams Retail Store Associate Relationship Specialty Start Date End Date Lalito England MD [address] [place] [address] PCP - General 08/03/19 documented as of this encounter
--- OUTSIDE RECORDS SUMMARY | 2024-07-11 22:37 | XMS_ITS | Encounter Summary ---
Author Organization [facility] Address [address] [place] [address] Care Team Providers Care Cabinetmaker Supervisor Name Role Phone Lalito England MD Primary Care Provider [phone] Samples, Kassi Morales RN Unavailable Reason for Visit * Reason Onset Date Comments Needs refill of albuterol inhaler, hers is expir ed 08/06/2022 Encounter Details Date Type Department Care Team (Late st Contact Info) Description 08/06/[address] [facility] Accountable Care Organization [address] [place] [id number] Samples, Kassi Morales RN [address] [place] [address] [address] [place] [address] Needs refill of albuterol inhaler, hers is Social History Tobacco Use Types Packs/Day Years [...] Never 01/16/2022 Overall Financial Resource Strain (CARDIA) Vadim r Date Recorded How hard is it [...] in a longterm (including now)? 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 Please send to pharmacy on file. Thank you, Kassi LANE, RN, [facility] Occupational Therapy Technician [phone] MANAGER documented in this encounter Plan of Treatment Not on file documented as of this encounter Visit Diagnoses Not on filedocumented in this encounter Discontinued Medications Medication Sig Discontinue Reason Start Date End Da te albuterol HFA (PROVENTIL HFA,VENTOLIN HFA) 90 mcg/actuation inhaler Inhale 2 puffs every 6 (six) hours as needed for wheezing. Reorder 08/07/2022 documented as of this encounter Care Teams Cabinetmaker Supervisor Relationship Specialty Start Date End Date Lalito England MD [address] [place] [address] PCP - General 08/03/19 Kassi Fontaine RN [address] [place] [address] DR HARDY [address] [place] [id number] Occupational Therapy Technician 07/16/22 08/11/22 documented as of this encounter
--- OUTSIDE RECORDS SUMMARY | 2024-07-11 22:37 | XMS_ITS | Encounter Summary ---
Author Organization [facility] Address [address] [place] [address] Care Team Providers Care Underliner Name Role Phone Lalito England MD Primary Care Provider [phone] Kassi Fontaine RN Unavailable Reason for Visit * Reason Onset Date Comments Medical Question/Miscellaneous 07/23/2022 Encounter Details Date Type Department Care Team (Late st Contact Info) Description 07/23/2022 Telephone [facility] [address] [place] [address] Lalito England MD [address] [place] [address] Medical Question/Miscellaneous Social History Tobacco [...] Never 01/16/2022 Overall Financial Resource Strain (CARDIA) [place] r [...] in a intermediate (including now)? 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 physical therapy - [facility] is out of network, we are currently pending a decision from [facility] if they will cover the visits. FREADER * Telephone Encounter - Devi George MA - 07/23/2022 12:14 PM CST Laura please see below FREADER * Telephone Encounter - Du Torres - 07/23/2022 12:06 PM CST Medical Question/Miscellaneous Caller???s Concern: Pt called to check the status update of an insurance referral. Leelee states that she spoke with Laura yesterday. Please f/u Caller???s Call back #: [phone] Does message need to be routed?Yes-Action Needed FREADER documented in this encounter Plan of Treatment Not on file documented as of this encounter Visit Diagnoses Not on filedocumented in this encounter Care Teams Underliner Relationship Specialty Start Date End Date Lalito England MD [address] [place] [address] PCP - General 08/03/19 Kassi Fontaine RN [address] [place] [address] DR HARDY [address] [place] [id number] Fuel Cell Battery Technician 07/16/22 08/11/22 documented as of this encounter
--- OUTSIDE RECORDS SUMMARY | 2024-07-11 22:37 | XMS_ITS | Encounter Summary ---
Author Organization [facility] Address [address] [place] [address] Care Team Providers Care Electronics Warfare Technician Name Role Phone Lalito England MD Primary Care Provider [phone] Reason for Referral * MRI/CAT/PET Scan (Routine) - Closed Specialty Diagnoses / Procedures Referred By Contac t Referred To Contact Radiology Diagnoses Spinal stenosis of lumbar region with neurogenic claudication Procedures MRI Lumbar Spine WO Contrast Lalito England MD [address] [place] [address] Phone: tel: fax: [address] [address] Referral ID Status Reason Start Date Expiration Date Visits Re quested Visits Authorized [id number] Closed 05/19/2023 06/17/2024 1 1 WINDING MACHINE OPERATOR Reason for Visit * Reason Comments Back Pain Neurology is request ing a updated MRI before she can schedule SOLID WASTE ANALYST appt Encounter Details Date Type Department Care Team (Late st Contact Info) Description 05/19/2023 10:15 AM LAP WINDING MACHINE OPERATOR Office Visit [facility] [address] [place] [address] Lalito England MD [address] [place] [address] Spinal stenosis of lumbar region with neurogenic claudication (Primary Dx); Controlled type 2 diabetes mellitus with diabetic polyneuropathy, with long-term current use of insulin (CMS/HCC) (HCC); Type 2 diabetes mellitus with stage 3b chronic kidney disease, with long-term current use of insulin (HCC); Hypertension associated with diabetes (HCC); Degenerative lumbar spinal stenosis; DDD (degenerative disc disease), lumbar; Type 2 diabetes mellitus with diabetic neuropathy, without long-term current use of insulin (CMS/HCC) (HCC); Stage 3b chronic kidney disease (CKD) (HCC); BMI 37.0-37.9, adult; Severe obesity (BMI 35.0-39.9) with comorbidity ([facility]) Social History Tobacco Use Types Packs/Day Years Used Date Smoking Tobacco: Never Smokeless Tobacco: Never Tobacco Cessation:Counseling Given: Not [...] on file Legal Sex Female 11:52 PM LAP WINDING MACHINE OPERATOR Gender Identity Not on file Sexual Orientation Not on file documented as of this encounter Last Filed Vital Signs Vital Sign Reading Time Taken Comments Blood Pressure 128/62 05/19/2023 10:07 AM LAP WINDING MACHINE OPERATOR Pulse 76 05/19/2023 10:07 AM LAP WINDING MACHINE OPERATOR Temperature 36.9 ??C (98.4 ??F) 05/19/2023 10:[address] Respiratory Rate - - Oxygen Saturation 99% 05/19/2023 10:07 AM LAP WINDING MACHINE OPERATOR Inhaled Oxygen Concentration - - Weight 101.6 kg (224 lb) 05/19/2023 10:07 AM LAP WINDING MACHINE OPERATOR Height 165.1 cm (5' 5 ) 05/19/2023 10:07 AM LAP WINDING MACHINE OPERATOR Body Mass Index 37.28 05/19/2023 10:07 AM LAP WINDING MACHINE OPERATOR documented in this encounter Progress Notes * Lalito England MD - 05/19/2023 10:15 AM CST Images from the original note were not included. [facility] Chief Complaint. Chief Complaint Patient presents with Back Pain Neurology is requesting a updated MRI before she can schedule SOLID WASTE ANALYST appt HPI. Patient is a 73 y.o. female Patient interested in second opinion and needs updated MRI of the lumbar spine and will follow response. Back Pain This is a chronic problem. The current episode started more than 1 year ago. The problem occurs daily. The problem has been gradually worsening since onset. The pain is present in the lumbar spine. The quality of the pain is described as aching, burning and stabbing. The pain does not radiate. The pain is at a severity of 8/10. The pain is severe. The symptoms are aggravated by bending, standing,stress and twisting. Stiffness is present All day. Associated symptoms include leg pain, paresthesias and weakness. Pertinent negatives include no abdominal pain, bladder incontinence, bowel incontinence, chest pain, dysuria, fever, headaches or perianal numbness. Risk factors include obesity. She has tried analgesics, heat and ice for the symptoms. The treatment provided mild relief. Diabetes She presents for her follow-up diabetic visit. She has type 2 diabetes mellitus. Her disease coursehas been stable. Pertinent negatives for hypoglycemia include no dizziness, headaches, mood changes, nervousness/anxiousness, sleepiness or tremors. Associated symptoms include fatigue, foot paresthesias and weakness. Pertinent negatives for diabetes include no blurred vision, no chest pain and no foot ulcerations. Symptoms are worsening. Pertinent negatives for diabetic complications include no CVA, heart disease, nephropathy or peripheral neuropathy. Risk factors for coronary artery disease include diabetes mellitus and dyslipidemia. Current diabetic treatment includes insulin injections and oral agent (dual therapy). She is compliant with treatment most of the time. She is following a diabetic and generally healthy diet. Meal planning includes avoidance of concentrated sweets. She participates in exercise intermittently. Hyperlipidemia This is a chronic problem. The current episode started more than 1 year ago. The problem is controlled. Recent lipid tests were reviewed and are normal. Exacerbating diseases include diabetes and obesity. She has no history of hypothyroidism. Associated symptoms include leg pain. Pertinent negatives include no chest pain, myalgias or shortness of breath. Current antihyperlipidemic treatment includes statins. The current treatment provides moderate improvement of lipids. Compliance problems include adherence to exercise. Risk factors for coronary artery disease include diabetes mellitus, dyslipidemia, hypertension, obesity, stress, a sedentary lifestyle and post-menopausal. 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 HAND PAPER MACHINE HX OTHER MEDICAL CMC OA HX OTHER [...] Surgical History: Procedure Laterality Date BACK SURGERY 03/25/2022 COLONOSCOPY 09/15/2013 JOINT REPLACEMENT KNEE ARTHROPLASTY Knee replacement LUMBAR SPINE SURGERY Surgery, lumbar spine OTHER SURGICAL HISTORY 2004 L TKA OTHER SURGICAL HISTORY 2001 R TKA OTHER SURGICAL HISTORY 2006 back surgery - microdecompression Lumbar OTHER SURGICAL HISTORY Fall: Medical Management OTHER SURGICAL HISTORY 2015 conversion of previous hip arthroplasty left hip: Conversion of Arthroplasty left hip REDUCTION MAMMAPLASTY Bilateral 2009 TONSILLECTOMY tonsillectomy HOME MEDICATIONS : albuterol HFA (PROVENTIL HFA,VENTOLIN HFA,PROAIR [...] diskus inhaler furosemide (LASIX) 20 mg tablet HYDROcodone-acetaminophen (NORCO) 5-325 mg per tablet insulin aspart (NovoLOG) 100 unit/mL (3 mL) pen for injection lancets (MICROLET LANCET) misc LANTUS 100 unit/mL (3 mL) pen for injection montelukast (SINGULAIR) 10 mg tablet naloxone (NARCAN) 4 mg/actuation spray,non-aerosol nystatin powder omeprazole (PriLOSEC) 20 mg capsule pen needle, diabetic (BD Ultra-Fine Mini Pen Needle) 31 gauge x 3/16 needle polyethylene glycol (MIRALAX) 17 gram/dose powder semaglutide (OZEMPIC) 1 mg/dose (4 mg/3 mL) pen injector injection semaglutide 0.25 mg or 0.5 mg (2 mg/3 mL) pen injector injection simvastatin (ZOCOR) 40 mg tablet apixaban (ELIQUIS) 2.5 mg tablet apixaban (ELIQUIS) 5 mg tablet gabapentin (NEURONTIN) 100 mg capsule No Known Allergies Social History Tobacco Use Smoking status: Never Smokeless tobacco: Never Substance and Sexual Activity Drug use: Never Sexual activity: Defer Alcohol Use: Not At Risk (01/16/2022) AUDIT-C Frequency of Alcohol Consumption: Monthly or less Average Number of Drinks: 1 or 2 Frequency of Binge Drinking: Never Family History Problem Relation Age of Onset Heart disease Father Heart disease; Heart failure Father CHF; Cause of : CHF Colon cancer Father Diabetes Mother Diabetes mellitus; Hypertension Mother Hypertension; Diabetes Brother Diabetes mellitus; Cancer Brother Lymphoma Brother Cancer -lymphoma; Stroke Brother Hypertension Brother Review of Systems: Review of Systems Constitutional: Positive for fatigue. Negative for activity change and fever. HENT: Negative for postnasal drip and rhinorrhea. Eyes: Negative for blurred vision. Respiratory: Negative for chest tightness, shortness of breath and wheezing. Cardiovascular: Negative for chest pain and leg swelling. Gastrointestinal: Negative for abdominal pain, blood in stool, bowel incontinence, constipation, diarrhea, nausea and vomiting. Genitourinary: Negative for bladder incontinence, dysuria, hematuria and urgency. Musculoskeletal: Positive for arthralgias, back pain and gait problem. Negative for myalgias and neck pain. Skin: Negative for rash. Neurological: Positive for weakness and paresthesias. Negative for dizziness, tremors, light-headedness and headaches. Psychiatric/Behavioral: Negative for dysphoric mood, sleep disturbance and suicidal ideas. The patient is not nervous/anxious. BP 128/62 (BP Location: Right arm, Patient Position: Sitting) Pulse 76 Temp 36.9 ??C (98.4 ??F)(Temporal) Ht 165.1 cm (5' 5 ) Wt 101.6 kg (224 lb) SpO2 99% BMI 37.28 kg/m?? Physical Exam: Physical Exam Vitals reviewed. [...] Diagnoses and all orders for this visit: Spinal stenosis of lumbar region with neurogenic claudication (Primary) - MRI Lumbar Spine WO Contrast; Future Referral to update MRI to receive second opiinion. Continues to ambulate with wheelchair. Moving home on 12 June and has ramps built at home. Controlled type 2 diabetes mellitus with diabetic polyneuropathy, with long-term current use of insulin (CMS/HCC) (HCC) - Hemoglobin A1c; Future - Comprehensive metabolic panel; Future - CBC with auto differential; Future Secondary rpevnetion. Will [id number] to follow reponse. Type 2 diabetes mellitus with stage 3b chronic kidney disease, with long-term current use of insulin ([facility]) Hypertension associated with diabetes ([facility]) Stable on clonidine. Degenerative lumbar spinal stenosis DDD (degenerative disc disease), lumbar Will follow response. Type 2 diabetes mellitus with diabetic neuropathy, without long-term current use of insulin (CMS/HCC) ([facility]) Will continue to montior response. Stage 3b chronic kidney disease (CKD) ([facility]) Encourage helathy food choices and sj motniro erpsonse. BMI 37.0-37.9, adult Continue on GLP-1 and will montiro repsose. Severe obesity (BMI 35.0-39.9) with comorbidity ([facility]) BMI Follow-up includes: nutrition counseling and exercise counseling. Body mass index is 37.28 kg/m??. Lalito England MD WINDING MACHINE OPERATOR documented in this encounter Plan of Treatment Not on file documented as of this encounter Results * MRI Lumbar Spine WO Contrast (06/03/2023 11:41 AM LAP WINDING MACHINE OPERATOR) Anatomical Region Laterality Modality Spine N/A Magnetic Resonan ce 06/03/2023 1:22 PM LAP WINDING MACHINE OPERATOR Narrative 06/03/2023 2:34 PM LAP WINDING MACHINE OPERATOR EXAM DESCRIPTION: ?? MRI LUMBAR SPINE WO [...] ?? Incompletely imaged. ??Lower thoracic degenerative changes ktvq-he-xdvjppas spinal canal narrowing at T11-T12, sagittal T2 series image 7. INDIVIDUAL DISC LEVELS: L1-2: ?? Minimal disc bulge with facet arthropathy and ligamentum flavum hypertrophy. ??No significant spinal canal or neural foraminal stenosis. L2-3: ?? Osseous spurring and annular disc bulge narrowing the lateral recesses contacting the descending L3 nerve roots. ?? Ndyd-io-pljvgwpk facet arthropathy and ligamentum flavum hypertrophy. ??Prominent [...] by ??Alexey Wagner M.D. AG: ERIC D: ??06/03/2023 2:34 PM T: ??06/03/2023 2:34 PM Report ID: [id number] Reading Location: ??[id number] Procedure Note Alexey Wagner MD - 06/03/2023 [...] upper lumbar spine that are unchanged from 2and favor benign fibro-osseous lesions. For example a [...] LOWER THORACIC: Incompletely imaged. Lower thoracic degenerativechanges lcmb-zh-ocenrhsf spinal canal narrowing at T11-T12, sagittal T2 seriesimage 7. INDIVIDUAL DISC LEVELS: L1-2: Minimal disc bulge with facet arthropathy and ligamentum flavum hypertrophy. No significant spinal canal or neural foraminal stenosis. L2-3: Osseous spurring and annular disc bulge narrowing the lateralrecesses contacting the descending L3 nerve roots. Jjbf-vb-qgfhpylu facetarthropathy and ligamentum flavum hypertrophy. Prominent dorsal [...] Alexey Wagner M.D. AG: ERIC Report ID: [id number] Reading Location: [place] [address] Lalito England MD IM MRI PROCEDURES Final Result * (ABNORMAL) CBC with auto differential (05/19/2023 10:55 AM LAP WINDING MACHINE OPERATOR) WBC 10.4(H) 3.8 - 9.9 K/cumm [facility] ([facility]) Comment:Testing performed by : [address] [address] Hgb 10.0(L) 11.9 - 15.5 g/dL [facility] ([place]) Comment: Interpretive Data A reference range for this assay has not been established for patients with an unknown legal sex. Please refer to the laboratory test catalog for established sex-specific reference intervals. Current interpretive data was last revised on 2023. Testing performed by: [address] [address] Hct 32.5(L) 35.6 - 45.5 % [facility] ([place]) Comment: Interpretive Data A reference range for this assay has not been established for patients with an unknown legal sex. Please refer to the laboratory test catalog for established sex-specific reference intervals. Current interpretive data was last revised on 2023. Testing performed by: [address] [address] Plt 243 150 - 400 K/cumm [facility] ([place]) Comment:Testing performed by : [address] [address] MPV 10.0 9.1 - 12.3 fL [facility] ([place]) Comment:Testing performed by : [facility], [address] [place] [address], [address] RBC 3.86(L) 3.90 - 5.20 M/cumm [facility] ([place]) Comment: Interpretive Data A reference range for this assay has not been established for patients with an unknown legal sex. Please refer to the laboratory test catalog for established sex-specific reference intervals. Current interpretive data was last revised on 2023. Testing performed by: [facility], [address] [place] [address], [address] MCV 84.2 81.3 - 96.4 fL [facility] ([place]) Comment:Testing performed by : [address], [address] MCH 25.9(L) 27.1 - 33.3 pg [facility] ([place]) Comment:Testing performed by : [address], [address] MCHC 30.8(L) 32.3 - 35.7 g/dL [facility] ([place]) Comment:Testing performed by : [address], [address] RDW CV 14.8 11.1 - 14.9 % [facility] ([place]) Comment:Testing performed by : [address], [address] RDW SD 45.1 35.7 - 48.1 fL [facility] ([place]) Comment:Testing performed by : [address], [address] NRBC abs 0.00 0.00 - 0.01 K/cumm [facility] ([place]) Comment:Testing performed by : [address], [address] Blood 05/19/2023 10:5 5 AM LAP WINDING MACHINE OPERATOR 05/19/2023 6:09 PM LAP WINDING MACHINE OPERATOR Lalito Engalnd MD LAB BLOOD ORDERABLES Jessica reynolds Result [facility] ([place]) [facility] [place] [address] * (ABNORMAL) Comprehensive metabolic panel (05/19/2023 10:55 AM LAP WINDING MACHINE OPERATOR) Sodium 136 135 - 145 mmol/L [facility] ([place]) Comment:Testing performed by : [facility], [address] [place] [address]., [address] Potassium, pl 4.3 3.3 - 4.9 mmol/L [facility] ([place]) Comment:Testing performed by : [facility], [address] [place] [address]., [address] Chloride 95(L) 97 - 110 mmol/L [facility] ([place]) Comment:Testing performed by : [facility], [address] [place] [address]., [address] CO2 27 22 - 32 mmol/L [facility] ([place]) Comment:Testing performed by : [address], [address] Anion gap 14 2 - 15 mmol/L [facility] ([place]) Comment:Testing performed by : [facility], [address] [place] [address]., [address] BUN 25 6 - 25 mg/dL [facility] ([place]) Comment:Testing performed by : [facility], [address] [place] [address]., [address] Creatinine 1.55(H) 0.60 - 1.10 mg/dL [facility] ([place]) Comment:Testing performed by : [address] [address] Glucose 165 70 - 199 mg/dL [facility] ([place]) [...] was last revised 2022. Testing performed by: [address] [place]., [address] Calcium 10.0 8.5 - 10.3 mg/dL [facility] ([place]) Comment:Testing performed by : [facility], [address] [place] [address], [address] Bilirubin, total 0.4 0.1 - 1.2 mg/dL [facility] ([place]) Comment:Testing performed by : [facility], [address] [place] [address], [address] Protein, pl 7.3 6.5 - 8.5 g/dL [facility] ([place]) Comment:Testing performed by : [facility], [address] [place] [address], [address] Albumin 4.0 3.5 - 5.0 g/dL [facility] ([place]) Comment:Testing performed by : [facility], [address] [place] [address], [address] Alk phos 75 40 - 130 Units/L [facility] ([place]) Comment:Testing performed by : [facility], [address] [place] [address], [address] ALT 21 7 - 45 Units/L [facility] ([place]) Comment:Testing performed by : [facility], [address] [place] [address], [address] AST 31 10 - 45 Units/L [facility] ([place]) Comment:Testing performed by : [address], [address] Blood 05/19/2023 10:5 5 AM LAP WINDING MACHINE OPERATOR 05/19/2023 6:09 PM LAP WINDING MACHINE OPERATOR Lalito England MD LAB BLOOD ORDERABLES Jessica reynolds Result [facility] ([place]) [facility] Department of Laboratories [place], [place] [id number] * (ABNORMAL) Hemoglobin A1c (05/19/2023 10:55 AM LAP WINDING MACHINE OPERATOR) Hgb A1C 9.8(H) 4.0 - 5.6 % [facility] ([place]) Comment:Testing performed by : [address], [address] Estimated Average Glucose 235 mg/dL [facility] ([place]) Comment: The ADA recommends reporting an estimated Average Glucose (eAG) with all Hemoglobin A1c results using the equation derived from a study of 507 normal and diabetic adults. ??Minority populations were underrepresented and children were not included. ?? (Diabetes Care 31:7857-4557, 2008). ??The eAG is not equivalent to a fasting glucose. Testing performed by: [facility], [address] [place] [address], [place]., [address] Blood 05/19/2023 10:5 5 AM LAP WINDING MACHINE OPERATOR 05/19/2023 6:09 PM LAP WINDING MACHINE OPERATOR us Lalito England MD LAB BLOOD ORDERABLES Jessica l Result [facility] ([facility]) 1 [facility] [place] [address] documented in this encounter Visit Diagnoses Diagnosis Spinal stenosis of lumbar region with neurogenic claudication- Primary Controlled type 2 diabetes mellitus with diabetic polyneuropathy, with long-term current use of insulin (HCC) Type 2 diabetes mellitus with stage 3b chronic kidney disease, with long-term current use of insulin (HCC) Hypertension associated with diabetes (HCC) Unspecified essential hypertension Degenerative lumbar spinal stenosis Spinal stenosis of lumbar region DDD (degenerative disc disease), lumbar Degeneration of lumbar or lumbosacral intervertebral disc Type 2 diabetes mellitus with diabetic neuropathy, without long-term current use of insulin (HCC) Stage 3b chronic kidney disease (CKD) (HCC) BMI 37.0-37.9, adult Severe obesity (BMI 35.0-39.9) with comorbidity (HCC) Spinal stenosis of lumbar region with neurogenic claudication documented in this encounter Historical Medications * This list may reflect changes made after this encounter. apixaban (ELIQUIS) 5 mg tablet Take 1 tablet (5 mg total) by mouth 2 (two) times a day 11/28/2023 added in this encounter Care Teams Electronics Warfare Technician Relationship Specialty Start Date End Date Lalito [place] [address] PCP - General 08/03/19 documented as of this encounter
--- OUTSIDE RECORDS SUMMARY | 2024-07-11 22:37 | XMS_ITS | Encounter Summary ---
Author Organization [facility] Address [address] [place] [address] Care Team Providers Care Assembler Steam And Gas Turbine Name Role Phone Lalito England MD Primary Care Provider [phone] Kassi Fontaine RN Unavailable [phone] Encounter Details Date Type Department Care Team (Late st Contact Info) Description 08/06/2022 Telephone [facility] [address] [place] [address] Lalito England MD [address] [place] [address] Social History Tobacco Use Types [...] in a usp (including now)? No 07/16/2022 Comments No Sex and Gender Information Value Date Recorded Sex Assigned at Not on file Legal Sex Female 11:52 PM DIVE SUPERVISOR Gender Identity Not on file Sexual Orientation Not on file documented as of this encounter Miscellaneous Notes * Telephone Encounter - Azra Roach MA - 08/06/2022 3:16 PM CST Left message on machine SUPERVISOR * Telephone Encounter - Azra Roach MA - 08/06/2022 3:15 PM CST ----- Message from Lalito England MD sent at 08/05/2022 3:44 PM DIVE SUPERVISOR ----- Script sent. SUPERVISOR documented in this encounter Plan of Treatment Not on file documented as of this encounter Visit Diagnoses Not on filedocumented in this encounter Care Teams Assembler Steam And Gas Turbine Relationship Specialty Start Date End Date [place] [address] PCP - General 08/03/19 Samples, Kassi Morales RN [address] [place] [address] [address] [place] [address] Photographs Curator 07/16/22 08/11/22 documented as of this encounter
--- OUTSIDE RECORDS SUMMARY | 2024-07-11 22:37 | XMS_ITS | Encounter Summary ---
Author Organization [facility] Address [address] [place] [address] Care Team Providers Care Adzing And Boring Machine Helper Name Role Phone Lalito England MD Primary Care Provider [phone] Kassi Fontaine RN Unavailable Encounter Details Date Type Department Care Team (Late st Contact Info) Description 08/01/2022 Orders Only [facility] [address] [place] [address] Lalito England MD [address] [facility] [place] [address] Change in behavior (Primary Dx) Social History Tobacco Use Types [...] a senior care (including now)? No 07/16/2022 Comments No Sex and Gender Information Value Date Recorded Sex Assigned at Not on file Legal Sex Female 11:52 PM FORESTRY CONTRACTOR Gender Identity Not on file Sexual Orientation Not on file documented as of this encounter Plan of Treatment Not on file documented as of this encounter Visit Diagnoses Diagnosis Change in behavior- Primary documented in this encounter Care Teams Adzing And Boring Machine Helper Relationship Specialty Start Date End Date Lalito England MD [address] [place] [address] PCP - General 08/03/19 Kassi Fontaine RN [address] [place] [address] [address] [place] [address] Ballistics Expert 07/16/22 08/11/22 documented as of this encounter
--- OUTSIDE RECORDS SUMMARY | 2024-07-11 22:37 | XMS_ITS | Encounter Summary ---
Author Organization [facility] Healthcare Address [address] [place] [address] Care Team Providers Care Bread Oven Operator Name Role Phone Lalito England MD Primary Care Provider [phone] Kassi Fontaine RN Unavailable [phone] Encounter Details Date Type Department Care Team (Late st Contact Info) Description 07/24/2022 11:00 AM FELT STRIP FINISHER Lab [facility] [address] [id number] Controlled type 2 diabetes mellitus with diabetic polyneuropathy, without long-term current use of insulin ([facility]) ([facility]) Social History Tobacco Use Types [...] on file Legal Sex Female 11:52 PM FELT STRIP FINISHER Gender Identity Not on file Sexual Orientation Not on file documented as of this encounter Plan of Treatment Not on file documented as of this encounter Procedures Procedure Name Priority Date/Time Associated Diagnosis Comments EGFR Routine 07/24/2022 11:08 AM FELT STRIP FINISHER Controlled type 2 diabetes mellitus with diabetic polyneuropathy, without long-term current use of insulin (CMS/HCC) (HCC) DIFFERENTIAL AUTO Routine 07/24/2022 11: 08 AM FELT STRIP FINISHER Controlled type 2 diabetes mellitus with diabetic polyneuropathy, without long-term current use of insulin (CMS/HCC) (HCC) CBC WITH AUTO DIFFERENTIAL Routine 07/24/2022 11:08 AM FELT STRIP FINISHER Controlled type 2 diabetes mellitus with diabetic polyneuropathy, without long-term current use of insulin (CMS/HCC) (HCC) HEMOGLOBIN A1C Routine 07/24/2022 11:08 AM FELT STRIP FINISHER Controlled type 2 diabetes mellitus with diabetic polyneuropathy, without long-term current use of insulin (CMS/HCC) (HCC) COMPREHENSIVE METABOLIC PANEL Routine 07/24/2022 11:08 AM FELT STRIP FINISHER Controlled type 2 diabetes mellitus with diabetic polyneuropathy, without long-term current use of insulin (CMS/HCC) (HCC) documented in this encounter Results * eGFR (07/24/2022 11:08 AM FELT STRIP FINISHER) Pathologist [facility] eGFR 52 mL/min/1. 73 m2 ANN KHALIF ([place]) Comment: Interpretive Data Reference Interval Normal ?>/= [...] was last reviewed 2021. Testing performed by: [facility], [address] [place] [address], [place]., [address] Blood 07/24/2022 11:0 8 AM FELT STRIP FINISHER 07/24/2022 5:21 PM FELT STRIP FINISHER us Lalito England MD LAB BLOOD ORDERABLES Jessica reynolds Result ANN CUADRA ([place]) [facility] Department [place] [address] * Differential, auto (07/24/2022 11:08 AM FELT STRIP FINISHER) Neutrophil abs 5.7 1.7 - 6.5 K/cumm [facility] ([place]) Comment:Testing performed by : [facility], [address] [place] [address]., [address] Imm gran abs 0.0 0.0 - 0.1 K/cumm [facility] ([place]) Comment:Testing performed by : [facility], [address] [place] [address]., [address] Lymphocyte abs 1.4 0.8 - 3.3 K/cumm [facility] ([place]) Comment:Testing performed by : [facility], [address] [place] [address]., [address] Monocyte abs 0.6 0.2 - 0.8 K/cumm [facility] ([place]) Comment:Testing performed by : [address] [address] Eosinophil abs 0.3 0.0 - 0.5 K/cumm [facility] ([place]) Comment:Testing performed by : [address] [address] Basophil abs 0.1 0.0 - 0.1 K/cumm [facility] ([place]) Comment:Testing performed by : [address] [address] Neutrophil pct 70.6 % [facility] ([place]) Comment: Interpretive Data Percent cell count reference ranges are not reported, since discordance with absolute values may lead to misinterpretation of CBC data. Current Interpretive Data was last revised on 2017. Testing performed by: [address] [address] Imm gran pct 0.5 % [facility] ([place]) Comment: Interpretive Data Percent cell count reference ranges are not reported, since discordance with absolute values may lead to misinterpretation of CBC data. Current Interpretive Data was last revised on 2017. Testing performed by: [address] [address] Lymphocyte pct 17.8 % [facility] ([place]) Comment: Interpretive Data Percent cell count reference ranges are not reported, since discordance with absolute values may lead to misinterpretation of CBC data. Current Interpretive Data was last revised on 2017. Testing performed by: [facility] [address] [place] [address]., [address] Monocyte pct 7.1 % [facility] ([place]) Comment: Interpretive Data Percent cell count reference ranges are not reported, since discordance with absolute values may lead to misinterpretation of CBC data. Current Interpretive Data was last revised on 2017. Testing performed by: [facility], [address] [place] [address]., [address] Eosinophil pct 3.1 % [facility] ([place]) Comment: Interpretive Data Percent cell count reference ranges are not reported, since discordance with absolute values may lead to misinterpretation of CBC data. Current Interpretive Data was last revised on 2017. Testing performed by: [address] [address] Basophil pct 0.9 % [facility] ([place]) Comment: Interpretive Data Percent cell count reference ranges are not reported, since discordance with absolute values may lead to misinterpretation of CBC data. Current Interpretive Data was last revised on 2017. Testing performed by: [address] [address] Blood 07/24/2022 11:0 8 AM FELT STRIP FINISHER 07/24/2022 4:55 PM FELT STRIP FINISHER Lalito England MD LAB BLOOD ORDERABLES Jessica reynolds Result ANN CUADRA ([place]) [facility] Department [place] [address] * (ABNORMAL) Comprehensive metabolic panel (07/24/2022 11:08 AM FELT STRIP FINISHER) Sodium 139 135 - 145 mmol/L [facility] ([place]) Comment:Testing performed by : [address] [address] Potassium, pl 4.3 3.3 - 4.9 mmol/L [facility] ([place]) Comment:Testing performed by : [address] [address] Chloride 102 97 - 110 mmol/L ANN CUADRA ([place]) Comment:Testing performed by : [address], [place]., [address] CO2 27 22 - 32 mmol/L [facility] ([place]) Comment:Testing performed by : [address] [address] Anion gap 10 2 - 15 mmol/L [facility] ([place]) Comment:Testing performed by : [address], [address] BUN 18 8 - 25 mg/dL [facility] ([place]) Comment:Testing performed by : [address], [address] Creatinine 1.12(H) 0.60 - 1.10 mg/dL [facility] ([place]) Comment:Testing performed by : [address], [address] Glucose 239(H) 70 - 199 mg/dL [facility] ([place]) [...] classification and Diagnosis of Diabetes Diabetes Care 2017;40 (Suppl. 1):S11. Current interpretive data was last revised 2017. Testing performed by: [address] [address] Calcium 9.3 8.5 - 10.3 mg/dL [facility] ([place]) Comment:Testing performed by : [address] [address] Bilirubin, total 0.3 0.1 - 1.2 mg/dL [facility] ([place]) Comment:Testing performed by : [address] [address] Protein, pl 7.1 6.5 - 8.5 g/dL [facility] ([place]) Comment:Testing performed by : [address], [address] Albumin 3.6 3.5 - 5.0 g/dL [facility] ([place]) Comment:Testing performed by : [facility], [address] [place] [address], [address] Alk phos 75 40 - 130 Units/L [facility] ([place]) Comment:Testing performed by : [facility], [address] [place] [address], [address] ALT 17 7 - 45 Units/L [facility] ([place]) Comment:Testing performed by : [facility], [address] [place] [address], [address] AST 27 10 - 45 Units/L [facility] ([place]) Comment:Testing performed by : [address], [address] Blood 07/24/2022 11:0 8 AM FELT STRIP FINISHER 07/24/2022 4:55 PM FELT STRIP FINISHER Lalito England MD LAB BLOOD ORDERABLES Jessica l Result [facility] ([place]) [facility] Department [place] [address] * (ABNORMAL) CBC with auto differential (07/24/2022 11:08 AM FELT STRIP FINISHER) WBC 8.1 3.8 - 9.9 K/cumm [facility] ([place]) Comment:Testing performed by : [address], [address] Hgb 10.2(L) 11.9 - 15.5 g/dL [facility] ([place]) Comment:Testing performed by : [address], [address] Hct 32.7(L) 35.6 - 45.5 % [facility] ([place]) Comment:Testing performed by : [address], [address] Plt 215 150 - 400 K/cumm [facility] ([place]) Comment:Testing performed by : [address], [address] MPV 10.0 9.1 - 12.3 fL [facility] ([place]) Comment:Testing performed by : [address] [place]., [address] RBC 3.81(L) 3.90 - 5.20 M/cumm [facility] ([place]) Comment:Testing performed by : [address], [address] MCV 85.8 81.3 - 96.4 fL [facility] ([place]) Comment:Testing performed by : [address], [address] MCH 26.8(L) 27.1 - 33.3 pg [facility] ([place]) Comment:Testing performed by : [facility], [address] [place] [address], [address] MCHC 31.2(L) 32.3 - 35.7 g/dL [facility] ([place]) Comment:Testing performed by : [address], [address] RDW CV 14.7 11.1 - 14.9 % [facility] ([place]) Comment:Testing performed by : [address], [address] RDW SD 46.3 35.7 - 48.1 fL [facility] ([place]) Comment:Testing performed by : [address], [address] NRBC abs 0.00 0.00 - 0.01 K/cumm [facility] ([place]) Comment:Testing performed by : [address], [address] Blood 07/24/2022 11:0 8 AM FELT STRIP FINISHER 07/24/2022 4:55 PM FELT STRIP FINISHER us Lalito England MD LAB BLOOD ORDERABLES Jessica reynolds Result [facility]RA ([place]) [facility] Department [place] [address] * (ABNORMAL) Hemoglobin A1c (07/24/2022 11:08 AM FELT STRIP FINISHER) Hgb A1C 8.1(H) 4.0 - 5.6 % [facility] ([place]) Comment:Testing performed by : [facility] [address] [place] [address]., [address] Estimated Average Glucose 186 mg/dL ANN CUADRA ([place]) Comment: The ADA recommends reporting an estimated Average Glucose (eAG) with all Hemoglobin A1c results using the equation derived from a study of 507 normal and diabetic adults. ??Minority populations were underrepresented and children were not included. ?? (Diabetes Care 31:0063-5998, 2008). ??The eAG is not equivalent to a fasting glucose. Testing performed by: [facility], [address] [place] [address]., [address] Blood 07/24/2022 11:0 8 AM FELT STRIP FINISHER 07/24/2022 4:55 PM FELT STRIP FINISHER us Lalito England MD LAB BLOOD ORDERABLES Jessica l Result [facility]RA ([place]) [facility] Department [place] [address] documented in this encounter Visit Diagnoses Diagnosis Controlled type 2 diabetes mellitus with diabetic polyneuropathy, without long- term current use of insulin (HCC) documented in this encounter Care Teams Bread Oven Operator Relationship Specialty Start Date End Date Lalito England [place] [address] PCP - General 08/03/19 Minal, Kassi Morales RN [address] [place] [address] DR HARDY [address] [place] [address] Issuer 07/16/22 08/11/22 documented as of this encounter
--- OUTSIDE RECORDS SUMMARY | 2024-07-11 22:37 | XMS_ITS | Encounter Summary ---
Author Organization [facility] Healthcare Address [address] [place] [address] Care Team Providers Care Movie Projectionist Name Role Phone Lalito England MD Primary Care Provider [phone] Encounter Details Date Type Department Care Team (Late st Contact Info) Description 04/30/2023 Telephone [facility] [address] [place] [address] Daisy Harp RN Social History Tobacco Use Types Packs/Day [...] file Legal Sex Female 11:52 PM CREDIT RISK ANALYST Gender Identity Not on file Sexual Orientation Not on file documented as of this encounter Miscellaneous Notes * Telephone Encounter - Daisy Harp RN - 04/30/2023 10:36 AM CDT Call to office Dr Lalito England [phone]. Spoke with Hilda. Notified at this time IT RISK ANALYST documented in this encounter Plan of Treatment Not on file documented as of this encounter Visit Diagnoses Not on filedocumented in this encounter Care Teams Movie Projectionist Relationship Specialty Start Date End Date [place] [address] PCP - General 08/03/19 documented as of this encounter
--- OUTSIDE RECORDS SUMMARY | 2024-07-11 22:37 | XMS_ITS | Encounter Summary ---
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 MARKETING 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 Gender Identity Not on file Sexual Orientation Not on file documented as of this encounter Plan of Treatment Not on file documented as of this encounter Procedures Procedure Name Priority Date/Time Associated Diagnosis Comments EGFR Routine 03/28/2023 3:19 PM CDT Controlled type 2 diabetes mellitus with hyperglycemia, with long-term current use of insulin (CMS/HCC) ([facility]) DIFFERENTIAL AUTO Routine 03/28/2023 3:1 9 PM CDT Controlled type 2 diabetes mellitus with hyperglycemia, with long-term current use of insulin (CMS/HCC) (HCC) CBC WITH AUTO DIFFERENTIAL Routine 03/28/2023 3:19 PM CDT Controlled type 2 diabetes mellitus with hyperglycemia, with long-term current use of insulin (CMS/HCC) ([facility]) ALBUMIN CREATININE RATIO, URINE Routine 03/28/2023 3:19 PM CDT Controlled type 2 diabetes mellitus with hyperglycemia, with long-term current use of insulin (CMS/HCC) ([facility]) HEMOGLOBIN A1C Routine 03/28/2023 3:19 PM CDT Controlled type 2 diabetes mellitus with hyperglycemia, with long-term current use of insulin (CMS/HCC) ([facility]) LIPID PANEL Routine 03/28/2023 3:19 PM CDT Controlled type 2 diabetes mellitus with hyperglycemia, with long-term current use of insulin (CMS/HCC) (HCC) COMPREHENSIVE METABOLIC PANEL Routine 03/28/2023 3:19 PM CDT Controlled type 2 diabetes mellitus with hyperglycemia, with long-term current use of insulin (CMS/HCC) (HCC) documented in this encounter Results * eGFR (03/28/2023 3:19 PM CDT) eGFR 34 mL/min/1. 73 m2 ANN [facility] ([place]HUA) Comment: Interpretive Data Reference Interval Normal ?>/= [...] was last reviewed 2021. Testing performed by: [facility], [address] [place] [address], [place]., [address] Blood 03/28/2023 3:19 PM CDT 03/28/2023 6:42 PM CDT us Lalito England MD LAB BLOOD ORDERABLES Jessica rodolfo Result [facility] ([place]) 1 [facility] Department [place] [address] * (ABNORMAL) Differential, auto (03/28/2023 3:19 PM CDT) Neutrophil abs 7.2(H) 1.7 - 6.5 K/cumm [facility] ([place]) Comment:Testing performed by : [facility], [address] [place] [address], [address] Imm gran abs 0.1 0.0 - 0.1 K/cumm [facility] ([place]) Comment:Testing performed by : [facility], [address] [place] [address], [address] Lymphocyte abs 1.8 0.8 - 3.3 K/cumm [facility] ([place]) Comment:Testing performed by : [address], [address] Monocyte abs 1.0(H) 0.2 - 0.8 K/cumm [facility] ([place]) Comment:Testing performed by : [facility], [address] [place] [address]., [address] Eosinophil abs 0.2 0.0 - 0.5 K/cumm [facility] ([place]) Comment:Testing performed by : [facility], [address] [place] [address]., [address] Basophil abs 0.1 0.0 - 0.1 K/cumm [facility] ([place]) Comment:Testing performed by : [address] [address] Neutrophil pct 70.0 % [facility] ([place]) Comment: Interpretive Data Percent cell count reference ranges are not reported, since discordance with absolute values may lead to misinterpretation of CBC data. Current Interpretive Data was last revised on 2017. Testing performed by: [address], [address] Imm gran pct 0.6 % [facility] ([place]) Comment: Interpretive Data Percent cell count reference ranges are not reported, since discordance with absolute values may lead to misinterpretation of CBC data. Current Interpretive Data was last revised on 2017. Testing performed by: [facility], [address] [place] [address]., [address] Lymphocyte pct 17.1 % [facility] ([place]) Comment: Interpretive Data Percent cell count reference ranges are not reported, since discordance with absolute values may lead to misinterpretation of CBC data. Current Interpretive Data was last revised on 2017. Testing performed by: [facility], [address] [place] [address]., [address] Monocyte pct 10.0 % [facility] ([place]) Comment: Interpretive Data Percent cell count reference ranges are not reported, since discordance with absolute values may lead to misinterpretation of CBC data. Current Interpretive Data was last revised on 2017. Testing performed by: [facility], [address] [place] [address]., [address] Eosinophil pct 1.7 % [facility] ([place]) Comment: Interpretive Data Percent cell count reference ranges are not reported, since discordance with absolute values may lead to misinterpretation of CBC data. Current Interpretive Data was last revised on 2017. Testing performed by: [facility], [address] [place] [address]., [address] Basophil pct 0.6 % [facility] ([place]) Comment: Interpretive Data Percent cell count reference ranges are not reported, since discordance with absolute values may lead to misinterpretation of CBC data. Current Interpretive Data was last revised on 2017. Testing performed by: [facility], [address] [place] [address]., [address] Blood 03/28/2023 3:19 PM CDT 03/28/2023 6:14 PM CDT us Lalito England MD LAB BLOOD ORDERABLES Jessica l Result ANN [facility] ([place]) 1 [facility] Department [place] [address] * (ABNORMAL) Albumin Creatinine Ratio, Urine (03/28/2023 3:19 PM CDT) Albumin Ur 184.3 mg/L ANN [facility] ([place]HUA) Comment: Interpretive Data No reference range established. Current interpretive data was last revised 2018. Testing performed by: [address] [address] Creatinine Ur 85.5 mg/dL [facility] ([place]) Comment: Interpretive Data No reference range established. Current interpretive data was last revised 2018. Testing performed by: [facility], [address] [place] [address]., [address] Albumin Creatinine Ratio, Ur 216(H) 1 - 29 mg/g [facility] ([place]) Comment:Testing performed by : [address], [address] Urine 03/28/2023 3:19 PM CDT 03/28/2023 6:14 PM CDT Lalito England MD LAB URINE ORDERABLES Jessica reynolds Result [facility] ([place]) 1 [facility] Department [place] [address] * (ABNORMAL) CBC with auto differential (03/28/2023 3:19 PM CDT) WBC 10.3(H) 3.8 - 9.9 K/cumm [facility] ([place]) Comment:Testing performed by : [address], [address] Hgb 9.8(L) 11.9 - 15.5 g/dL [facility] ([place]) Comment:Testing performed by : [facility], [address] [place] [address], [address] Hct 31.8(L) 35.6 - 45.5 % [facility] ([place]) Comment:Testing performed by : [address], [address] Plt 250 150 - 400 K/cumm [facility] ([place]) Comment:Testing performed by : [address], [address] MPV 9.9 9.1 - 12.3 fL [facility] ([place]) Comment:Testing performed by : [address], [address] RBC 3.82(L) 3.90 - 5.20 M/cumm [facility] ([place]) Comment:Testing performed by : [address], [address] MCV 83.2 81.3 - 96.4 fL [facility] ([place]) Comment:Testing performed by : [address], [address] MCH 25.7(L) 27.1 - 33.3 pg [facility] ([place]) Comment:Testing performed by : [address], [address] MCHC 30.8(L) 32.3 - 35.7 g/dL [facility] ([place]) Comment:Testing performed by : [address], [address] RDW CV 14.6 11.1 - 14.9 % [facility] ([place]) Comment:Testing performed by : [address], [address] RDW SD 43.8 35.7 - 48.1 fL [facility] ([place]) Comment:Testing performed by : [address], [address] NRBC abs 0.00 0.00 - 0.01 K/cumm [facility] ([place]) Comment:Testing performed by : [address], [address] Blood 03/28/2023 3:19 PM CDT 03/28/2023 6:14 PM CDT us Lalito England MD LAB BLOOD ORDERABLES Jessica reynolds Result ANN [facility] ([place]) 1 [facility] Department [place] [address] * (ABNORMAL) Comprehensive metabolic panel (03/28/2023 3:19 PM CDT) Sodium 137 135 - 145 mmol/L [facility] ([place]) Comment:Testing performed by : [address], [place]., [address] Potassium, pl 4.3 3.3 - 4.9 mmol/L [facility] ([place]) Comment:Testing performed by : [facility], [address] [place] [address]., [address] Chloride 98 97 - 110 mmol/L [facility] ([place]) Comment:Testing performed by : [address] [address] CO2 28 22 - 32 mmol/L [facility] ([place]) Comment:Testing performed by : [facility], [address] [place] [address], [address] Anion gap 11 2 - 15 mmol/L [facility] ([place]) Comment:Testing performed by : [address], [address] BUN 31(H) 6 - 25 mg/dL [facility] ([place]) Comment:Testing performed by : [address], [address] Creatinine 1.59(H) 0.60 - 1.10 mg/dL [facility] ([place]) Comment:Testing performed by : [address], [address] Glucose 141 70 - 199 mg/dL [facility] ([place]) [...] was last revised 2022. Testing performed by: [address] [address] Calcium 10.5(H) 8.5 - 10.3 mg/dL [facility] ([place]) Comment:Testing performed by : [address], [address] Bilirubin, total 0.4 0.1 - 1.2 mg/dL [facility] ([place]) Comment:Testing performed by : [facility], [address] [place] [address]., [address] Protein, pl 7.4 6.5 - 8.5 g/dL [facility] ([place]) Comment:Testing performed by : [facility], [address] [place] [address], [address] Albumin 3.9 3.5 - 5.0 g/dL [facility] ([place]) Comment:Testing performed by : [facility], [address] [place] [address], [address] Alk phos 83 40 - 130 Units/L [facility] ([place]) Comment:Testing performed by : [facility], [address] [place] [address], [address] ALT 14 7 - 45 Units/L [facility] ([place]) Comment:Testing performed by : [facility], [address] [place] [address], [address] AST 19 10 - 45 Units/L [facility] ([place]) Comment:Testing performed by : [facility], [address] [place] [address], [address] Blood 03/28/2023 3:19 PM CDT 03/28/2023 6:14 PM CDT Lalito England MD LAB BLOOD ORDERABLES Jessica reynolds Result [facility] ([place]) 1 [facility] Department [place] [address] * (ABNORMAL) Hemoglobin A1c (03/28/2023 3:19 PM CDT) Hgb A1C 9.7(H) 4.0 - 5.6 % [facility] ([place]) Comment:Testing performed by : [address], [address] Estimated Average Glucose 232 mg/dL [facility] ([place]) Comment: The ADA recommends reporting an estimated Average Glucose (eAG) with all Hemoglobin A1c results using the equation derived from a study of 507 normal and diabetic adults. ??Minority populations were underrepresented and children were not included. ?? (Diabetes Care 31:2525-1971, 2008). ??The eAG is not equivalent to a fasting glucose. Testing performed by: [facility], [address] [place] [address]., [address] Blood 03/28/2023 3:19 PM CDT 03/28/2023 6:14 PM CDT us Lalito England MD LAB BLOOD ORDERABLES Jessica reynolds Result ANN [facility] ([place]EC[place]) 1 [facility] Department [place] [address] * Lipid panel (03/28/2023 3:19 PM CDT) Cholesterol 135 30 - 199 mg/dL [facility] ([place]) Comment: [...] last revised on 2018. Testing performed by: [facility], [address] [place] [address]., [address] Triglycerides 103 <=149 mg/dL [facility] ([place]) Comment: Interpretive [...] last revised on 2018. Testing performed by: [facility], [address] [place] [address]., [address] HDL 44 >=40 mg/dL ANN KOROMA) Comment: Interpretive Data [...] last revised on 2018. Testing performed by: [facility], [address] [place] [address]., [address] LDL, calculated 70 <=129 mg/dL ANN [facility]OROMA) Comment: Interpretive Data Ages [...] last revised on 2018. Testing performed by: [facility], [address] [place] [address]., [address] Non-HDL Cholesterol 91 mg/dL [facility] ([place]) Comment: Interpretive Data [...] last revised on 2018. Testing performed by: [facility], [address] [place] [address]., [address] Chol/HDL ratio 3 ANDRIA [facility] (JOSHUA) Comment:Testing performed by : [address] [address] Blood 03/28/2023 3:19 PM CDT 03/28/2023 6:14 PM CDT us Lalito England MD LAB BLOOD ORDERABLES Jessica l Result [facility] ([place]) 1 [facility] Department [place] [address] documented in this encounter Visit Diagnoses Diagnosis Controlled type 2 diabetes mellitus with hyperglycemia, with long-term current use of insulin (CMS/HCC) (HCC) documented in this encounter Care Teams Sonar Watchstander Relationship Specialty Start Date End Date [place] [address] PCP - General 08/03/19 documented as of this encounter
--- OUTSIDE RECORDS SUMMARY | 2024-07-11 22:37 | XMS_ITS | Encounter Summary ---
Author Organization [facility] Healthcare Address [address] [place] [address] Care Team Providers Care Crew Supervisor Name Role Phone Lalito England MD Primary Care Provider [phone] Reason for Visit * Reason Onset Date Comments Medical Question/Miscellaneous 2023 Encounter Details Date Type Department Care Team (Late st Contact Info) Description 2023 Telephone [facility] [address] [facility] [place] [address] Lalito England MD [address] [facility] [address] [address] Medical Question/Miscellaneous Social History Tobacco [...] in a fpc (including now)? 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 - 2023 2:32 PM CDT Medical Question/Miscellaneous Caller???s Concern: Autumn from [employer] called in requesting to speak with Lilly regardinga referral she just called in, FENCE ERECTOR contacted backline spoke with Svitlana and warm transferred call. Caller???s Call back #: [phone] Does message need to be routed? No documented in this encounter Plan of Treatment Not on file documented as of this encounter Visit Diagnoses Not on filedocumented in this encounter Care Teams Crew Supervisor Relationship Specialty Start Date End Date Lalito England MD [address] [place] [address] PCP - General 08/03/19 documented as of this encounter
--- OUTSIDE RECORDS SUMMARY | 2024-07-11 22:37 | XMS_ITS | Encounter Summary ---
Author Organization [facility] Healthcare Address [address] [place] [address] Care Team Providers Care A Operator Name Role Phone Lalito England MD Primary Care Provider [phone] Encounter Details Date Type Department Care Team (Late st Contact Info) Description 04/16/2023 Telephone [facility] [address] [facility] [place] [address] Lalito England MD [address] [place] [address] Social History Tobacco Use Types Packs/Day [...] in a penitentiary (including now)? No 07/16/2022 Comments No Sex and Gender Information Value Date Recorded Sex Assigned at Not on file Legal Sex Female 11:52 PM CORPORATE COMPLIANCE DIRECTOR Gender Identity Not on file Sexual Orientation Not on file documented as of this encounter Miscellaneous Notes * Telephone Encounter - Stormy Ibrahim - 04/16/2023 8:02 AM CDT error documented in this encounter Plan of Treatment Not on file documented as of this encounter Visit Diagnoses Not on filedocumented in this encounter Care Teams A Operator Relationship Specialty Start Date End Date Lalito England MD [address] [place] [address] PCP - General 08/03/19 documented as of this encounter
--- OUTSIDE RECORDS SUMMARY | 2024-07-11 22:37 | XMS_ITS | Encounter Summary ---
Author Organization [facility] Medical Group Address [address] [facility] [address] [place] [address] Care Team Providers Care Chrome Worker Name Role Phone Lalito England MD Primary Care Provider [phone] Encounter Details Date Type Department Care Team (Late st Contact Info) Description 04/09/2023 Orders Only [facility] [address] [place] [address] Lalito England MD [address] [place] [address] Other activity involving other muscle strengthening exercises (Primary Dx) Social History Tobacco Use Types [...] a care home (including now)? No 07/16/2022 Comments No Sex and Gender Information Value Date Recorded Sex Assigned at Not on file Legal Sex Female 11:52 PM PATIENT ACCOUNTS MANAGER Gender Identity Not on file Sexual Orientation Not on file documented as of this encounter Plan of Treatment Not on file documented as of this encounter Visit Diagnoses Diagnosis Other activity involving other muscle strengthening exercises- Primary documented in this encounter Care Teams Chrome Worker Relationship Specialty Start Date End Date Lalito England MD [address] [place] [address] PCP - General 08/03/19 documented as of this encounter
--- OUTSIDE RECORDS SUMMARY | 2024-07-11 22:37 | XMS_ITS | Encounter Summary ---
Author Organization [facility] Medical Group Address [address] [facility] [place] [facility] [address] [place] [address] Care Team Providers Care Weekday Babysitter Name Role Phone Lalito England MD Primary Care Provider [phone] [phone] Encounter Details Date Type Department Care Team (Late st Contact Info) Description 04/08/2023 Orders Only [facility] [address] [place] [address] Lalito England MD [address] [place] [address] Other activity involving other muscle strengthening exercises [...] in a fdc (including now)? 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
--- OUTSIDE RECORDS SUMMARY | 2024-07-11 22:37 | XMS_ITS | Encounter Summary ---
Author Organization [facility] Medical Group Address [address] [facility] [address] [place] [address] Care Team Providers Care Director Airport Name Role Phone Lalito England MD Primary Care Provider [phone] Kassi Fontaine RN Unavailable [phone] Reason for Visit * Reason Onset Date Comments Appointment Request 07/16/2022 Encounter Details Date Type Department Care Team (Late st Contact Info) Description 07/16/2022 Telephone [facility] [address] [place] [address] Lalito England MD [address] [place] [address] Appointment Request Social History Tobacco Use Types Packs/Day [...] in a detention (including now)? No 07/16/2022 Comments No Sex and Gender Information Value Date Recorded Sex Assigned at Not on file Legal Sex Female 11:52 PM TUBER MACHINE OPERATOR Gender Identity Not on file Sexual Orientation Not on file documented as of this encounter Miscellaneous Notes * Telephone Encounter - Daisy Lui - 07/16/2022 11:28 AM CST Scheduled. R MACHINE OPERATOR * Telephone Encounter - Collins Vielkamc Guo - 07/16/2022 10:42 AM CST Appointment Request What visit type does the patient need? Visit Type: Established Patient What is the reason for the visit? General follow up, med refills What is the reason we were unable to schedule the appointment? Current appointment availability didnot meet patient's need. No openings until September If applicable, were all members of the patient's PCP care team offered (e.g., nurse practioner(s), physician faculty i on call medical assistant(s)) ? Yes Caller's Callback #: [phone] Additional Comments: Patient has not been seen since November and states she has medications that will be due soon. Patient was just moved to a rehab center in [place] on Friday but still wants to be seen soon. Does message need to be routed? Yes-Action Needed R MACHINE OPERATOR documented in this encounter Plan of Treatment Not on file documented as of this encounter Visit Diagnoses Not on filedocumented in this encounter Care Teams Director Airport Relationship Specialty Start Date End Date Lalito England MD [address] [facility] [place] [address] PCP - General 08/03/19 Kassi Fontaine RN [address] [place] [address] [address] [place] [id number] Last Inserter 07/16/22 08/11/22 documented as of this encounter
--- OUTSIDE RECORDS SUMMARY | 2024-07-11 22:37 | XMS_ITS | Encounter Summary ---
Author Organization [facility] Medical Group Address [address] [facility] [address] [place] [address] Care Team Providers Care Booster Operator Name Role Phone Lalito England MD Primary Care Provider [phone] Kassi Fontaine RN Unavailable [phone] Reason for Visit * Reason Onset Date Comments Referral Request 07/24/2022 Encounter Details Date Type Department Care Team (Late st Contact Info) Description 07/24/2022 Telephone [facility] [address] [place] [address] Lalito England MD [address] [place] [address] Referral Request Social History Tobacco [...] in a half-way (including now)? No 07/16/2022 Comments No Sex and Gender Information Value Date Recorded Sex Assigned at Not on file Legal Sex Female 11:52 PM ANIMAL CARE TAKER Gender Identity Not on file Sexual Orientation Not on file documented as of this encounter Miscellaneous Notes * Telephone Encounter - Svitlana Mitchell - 07/24/2022 2:44 PM CST Approved and faxed. AL CARE TAKER * Telephone Encounter - Vielka Collins - 07/24/2022 2:09 PM CST Referral Provider Name (if patient is seeing a nurse practitioner or physician data analysis assistant, list the SALES ACTIVITY MANAGER/PA, but also their collaborating doctor): [facility] Specialty: pt ot senior care Address: [address] [place] [address], Zip: [place] [address] Diagnosis Code/Symptom/Reason Patient is being seen: M48.061 Date of Appointment: need to be backdated to 05/24/2022 NPI#: [id number] Tax ID#: [id number] Is insurance in chart up to date? yes Caller???s Callback #: [phone] Additional Comments: Please make start date 05/24/2022 to 07/04/22 with a total of 84 visits (PT 42- OT 42) Does message need to be routed?Yes-Action Needed AL CARE TAKER documented in this encounter Plan of Treatment Not on file documented as of this encounter Visit Diagnoses Not on filedocumented in this encounter Care Teams Booster Operator Relationship Specialty Start Date End Date Lalito England MD [address] [place] [address] PCP - General 08/03/19 Kassi Fontaine RN [address] [place] [address] [address] [place] [address] Coal Trammer 07/16/22 08/11/22 documented as of this encounter
--- OUTSIDE RECORDS SUMMARY | 2024-07-11 22:37 | XMS_ITS | Encounter Summary ---
Author Organization [facility] Address [address] [place] [address] Care Team Providers Care Pharmacy Tech Name Role Phone Lalito England MD Primary Care Provider [phone] Kassi Fontaine RN Unavailable Encounter Details Date Type Department Care Team (Late st Contact Info) Description 08/05/2022 Orders Only [facility] [address] [place] [address] Lalito England MD [address] [place] [address] Social History Tobacco Use Types Packs/Day Years [...] on file Legal Sex Female 11:52 PM SHIFT SUPERVISOR Gender Identity Not on file Sexual Orientation Not on file documented as of this encounter Ordered Prescriptions Prescription Sig Dispense Quantity Refills Last Filled Start Date End Date nystatin powder Apply topically 4 (four) times a day 60 g 3 08/05/2022 4 documented in this encounter Plan of Treatment Not on file documented as of this encounter Visit Diagnoses Not on filedocumented in this encounter Care Teams Pharmacy Tech Relationship Specialty Start Date End Date Lalito England MD [address] [place] [address] PCP - General 08/03/19 Kassi Fontaine RN [address] [place] [address] [address] [place] [address] Quality Assurance Clerk 07/16/22 08/11/22 documented as of this encounter
--- OUTSIDE RECORDS SUMMARY | 2024-07-11 22:37 | XMS_ITS | Encounter Summary ---
Author Organization [facility] Medical Group Address [address] [place] [address] Care Team Providers Care Patient Day Coordinator Name Role Phone Lalito England MD Primary Care Provider [phone] Kassi Fontaine RN Unavailable Reason for Visit * Reason Comments [facility] Med Refill Pt needing a refill on flovent, needles, contour next test strips, pt needing a refill on Hydrocodone 5-325 whenever she runs out. Pt currently has enough. Encounter Details Date Type Department Care Team (Late st Contact Info) Description 07/24/2022 10:30 AM PCA 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 Office Visit [facility] [address] [place] [address] Lalito England MD [address] [facility] [place] [address] Controlled type 2 diabetes mellitus with diabetic polyneuropathy, without long-term current use of insulin (CMS/HCC) (HCC) (Primary Dx); Colon cancer screening; Morbid (severe) obesity due to excess calories (HCC); BMI 35.0-35.9,adult; Severe obesity (BMI 35.0-39.9) with comorbidity (CMS/HCC) (HCC); Spinal stenosis of lumbar region with neurogenic claudication Social History Tobacco Use Types Packs/Day Years [...] on file Legal Sex Female 11:52 PM 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 Gender Identity Not on file Sexual Orientation Not on file documented as of this encounter Last Filed Vital Signs Vital Sign Reading Time Taken Comments Blood Pressure 128/70 07/24/2022 10:30 AM 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 Pulse 62 07/24/2022 10:30 AM 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 Temperature - - Respiratory Rate 18 07/24/2022 10:30 AM 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 Oxygen Saturation 100% 07/24/2022 10:30 AM 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 Inhaled Oxygen Concentration - - Weight 99.8 kg (220 lb) 07/24/2022 10:30 AM 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 Height 167.6 cm (5' 5.98 ) 07/24/2022 10:30 AM Silvia EUBANKS Body Mass Index 35.53 07/24/2022 10:30 AM 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 documented in this encounter Ordered Prescriptions Prescription Sig Dispense Quantity Refills Last Filled Start Date End Date fluticasone propionate (Flovent Diskus) 100 mcg/actuation diskus inhaler Inhale 1 puff 2 (two) times a day Rinse mouth with water after use. Do not swallow. 60 each 3 07/24/2022 3 polyethylene glycol (MIRALAX) 17 gram/dose powder Take 17 g by mouth daily 850 g 1 07/24/2022 4 pen needle, diabetic (BD Ultra-Fine Mini Pen Needle) 31 gauge x 3/16 needle 1 needle as directed 300 each 3 07/24/2022 4 blood glucose diagnostic (Contour Next Test Strips) strip Test blood sugar 3 times a day and will montior response. Dx: E11.22. 300 each 3 07/24/2022 4 documented in this encounter Progress Notes * Lalito England MD - 07/24/2022 10:30 AM CST Images from the original note were not included. [facility] Criss Ly Chief Complaint. Chief Complaint Patient presents with Follow-up Pt here for a follow up from rehab- [facility] Med Refill Pt needing a refill on flovent, needles, contour next test strips, pt needing a refill on Hydrocodone 5-325 whenever she runs out. Pt currently has enough. HPI. Patient is a 72 y.o. female Ms. Ly presents to clinic for f/u on recetn lumbar spine surgery for spinal stenosis. Rehab complicated by persistent weakness. Peaked at walking approx 27 feet with stand up walker but over the past month has noted increased weakness. Very pelase to have moved from [facility] to [facility] to be in apartment and will follow response. 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 Med Refill Associated symptoms include arthralgias. Pertinent negatives include no abdominal pain, chest pain,fatigue, fever, headaches, myalgias, nausea, neck pain, rash, vomiting or weakness. 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 2008.; Comments: J 07/25/2015 - HX OTHER MEDICAL Breast reduction 2009.; Comments: J 07/25/2015 - HX OTHER MEDICAL left hip and leg surgery HX OTHER MEDICAL conversion of previous hip arthroplasty left hip; Comments: [facility] TCU unit 02/06 - 02/17/16 [...] of Arthroplasty left hip REDUCTION MAMMAPLASTY Bilateral 2008 TONSILLECTOMY tonsillectomy HOME MEDICATIONS : albuterol HFA (PROVENTIL HFA,VENTOLIN HFA) 90 mcg/actuation inhaler alendronate (FOSAMAX) 70 mg tablet apixaban (ELIQUIS) 2.5 mg tablet aspirin 81 mg enteric coated tablet blood-glucose meter (CONTOUR NEXT USB METER) misc calcium carbonate-vitamin D3 500 mg(1,250mg) -400 unit tablet cloNIDine (CATAPRES) 0.1 mg tablet cyclobenzaprine (FLEXERIL) 10 mg tablet Eliquis 5 mg tablet furosemide (LASIX) 20 mg tablet gabapentin (NEURONTIN) 100 mg capsule glipiZIDE (GLUCOTROL) 5 mg tablet HYDROcodone-acetaminophen (NORCO) 5-325 mg per tablet lancets (MICROLET LANCET) misc LANTUS 100 unit/mL (3 mL) pen for injection methocarbamoL (ROBAXIN) 750 mg tablet montelukast (SINGULAIR) 10 mg tablet naloxone (NARCAN) 4 mg/actuation spray,non-aerosol NovoLOG 100 unit/mL (3 mL) pen for injection omeprazole (PriLOSEC) 20 mg capsule simvastatin (ZOCOR) 40 mg tablet blood glucose diagnostic (Contour Next Test Strips) strip fluticasone propionate (FLONASE) 50 mcg/actuation nasal spray pen needle, diabetic (BD Ultra-Fine Mini Pen Needle) 31 gauge x 3/16 needle blood glucose diagnostic (Contour Next Test Strips) strip fluticasone propionate (Flovent Diskus) 100 mcg/actuation diskus inhaler pantoprazole DR (PROTONIX) 40 mg EC tablet pen needle, diabetic (BD Ultra-Fine Mini Pen Needle) 31 gauge x 3/16 needle polyethylene glycol (MIRALAX) 17 gram/dose powder No Known Allergies Social History Tobacco Use Smoking status: Never Smokeless tobacco: Never Substance and Sexual Activity Drug use: Never Sexual activity: Defer Alcohol Use: Not At Risk Frequency of Alcohol Consumption: Monthly or less [...] for chest pain and leg swelling. Gastrointestinal: Positive for constipation. Negative for abdominal pain, blood in stool, diarrhea,nausea and vomiting. Nonbloody consstipation Endocrine: Negative for cold intolerance and heat intolerance. Genitourinary: Negative for dysuria and hematuria. Musculoskeletal: Positive for arthralgias. Negative for back pain, myalgias and neck pain. Skin: Negative for rash. Neurological: Negative for dizziness, tremors, weakness, light-headedness and headaches. Psychiatric/Behavioral: Negative for sleep disturbance and suicidal ideas. BP 128/70 (BP Location: Left arm, Patient Position: Sitting) Pulse 62 Resp 18 Ht 167.6 cm (5'5.98 ) Wt 99.8 kg (220 lb) SpO2 100% BMI 35.53 kg/m?? Physical Exam: Physical Exam Vitals reviewed. [...] takes less than 2 seconds. Findings: No erythema or rash. Neurological: Mental Status: She is alert and oriented to person, place, and time. Motor: Weakness present. Gait: Gait abnormal. Comments: Sitting in wheelchair. No open woudns/sores. Psychiatric: Thought Content: Thought content normal. Assessment & Plan: Diagnoses and all orders for this visit: Controlled type 2 diabetes mellitus with diabetic polyneuropathy, without long- term current use of insulin ([facility]) ([facility]) (Primary) - POCT hemoglobin A1c - Albumin Creatinine Ratio, Urine; Future - Comprehensive metabolic panel; Future - CBC with auto differential; Future - Hemoglobin A1c; Future Secondary prevnetion. WIll continue to follow. A1c of 8.0%. Mobility is sig limited. Patient is motivated to monitor response. WIll continue to follow. Colon cancer screening - Ambulatory referral to Gastroenterology; Future Morbid (severe) obesity due to excess calories ([facility]) Reviewed impact of increae dBMI and will montior resopnse. Reivewed goal fo 150min/week aerobic exeridcse. BMI 35.0-35.9,adult Reviewed red flag s/s. Severe obesity (BMI 35.0-39.9) with comorbidity (CMS/HCC) ([facility]) Other orders - blood glucose diagnostic (Contour Next Test Strips) strip; Test blood sugar 3 times a day and will montior response. Dx: E11.22. - pen needle, diabetic (BD Ultra-Fine Mini Pen Needle) 31 gauge x 3/16 needle; 1 needle as directed - polyethylene glycol (MIRALAX) 17 gram/dose powder; Take 17 g by mouth daily - fluticasone propionate (Flovent Diskus) 100 mcg/actuation diskus inhaler; Inhale 1 puff 2 (two) times a day Rinse mouth with water after use. Do not swallow. BMI Follow-up includes: nutrition counseling and exercise counseling. Body mass index is 35.53 kg/m??. Lalito England MD 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 documented in this encounter Plan of Treatment Not on file documented as of this encounter Procedures Procedure Name Priority Date/Time Associated Diagnosis Comments POCT HEMOGLOBIN A1C Routine 07/24/2022 1 1:22 AM 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 Controlled type 2 diabetes mellitus with diabetic polyneuropathy, without long-term current use of insulin ([facility]) ([facility]) documented in this encounter Results * (ABNORMAL) POCT hemoglobin A1c (07/24/2022 11:22 AM 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) Hemoglobin A1C, POC 8.0 Capillary blood 07/24/2022 1 1:22 AM 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 Lalito England MD POINT OF CARE TEST ORDERA BLES Final Result * (ABNORMAL) Hemoglobin A1c (07/24/2022 11:08 AM 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) Hgb A1C 8.1(H) 4.0 - 5.6 % [facility] ([place]) Comment:Testing performed by : [facility], [address] [place] [address], [place]., [address] Estimated Average Glucose 186 mg/dL [facility] ([place]) Comment: The ADA recommends reporting an estimated Average Glucose (eAG) with all Hemoglobin A1c results using the equation derived from a study of 507 normal and diabetic adults. ??Minority populations were underrepresented and children were not included. ?? (Diabetes Care 31:2729-5357, 2008). ??The eAG is not equivalent to a fasting glucose. Testing performed by: [address] [address] Blood 07/24/2022 11:0 8 AM 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 07/24/2022 4:55 PM 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 us Lalito England MD LAB BLOOD ORDERABLES Jessica reynolds Result [facility] ([place]) 1 [facility] Department [place] [address] * (ABNORMAL) CBC with auto differential (07/24/2022 11:08 AM 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) Pathologist [facility] WBC 8.1 3.8 - 9.9 K/cumm [facility] ([place]) Comment:Testing performed by : [address], [address] Hgb 10.2(L) 11.9 - 15.5 g/dL [facility] ([place]) Comment:Testing performed by : [address], [address] Hct 32.7(L) 35.6 - 45.5 % [facility] ([place]) Comment:Testing performed by : [address], [address] Plt 215 150 - 400 K/cumm [facility] ([place]) Comment:Testing performed by : [address], [address] MPV 10.0 9.1 - 12.3 fL [facility] ([place]) Comment:Testing performed by : [address], [address] RBC 3.81(L) 3.90 - 5.20 M/cumm [facility] ([place]) Comment:Testing performed by : [address], [address] MCV 85.8 81.3 - 96.4 fL [facility] ([place]) Comment:Testing performed by : [address], [address] MCH 26.8(L) 27.1 - 33.3 pg [facility] ([place]) Comment:Testing performed by : [facility], [address] [place] [address], [address] MCHC 31.2(L) 32.3 - 35.7 g/dL [facility] ([place]) Comment:Testing performed by : [facility], [address] [place] [address], [address] RDW CV 14.7 11.1 - 14.9 % [facility] ([place]) Comment:Testing performed by : [facility], [address] [place] [address], [address] RDW SD 46.3 35.7 - 48.1 fL [facility] ([place]) Comment:Testing performed by : [facility], [address] [place] [address], [address] NRBC abs 0.00 0.00 - 0.01 K/cumm [facility] ([place]) Comment:Testing performed by : [address], [address] Blood 07/24/2022 11:0 8 AM 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 07/24/2022 4:55 PM 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 us Lalito England MD LAB BLOOD ORDERABLES Jessica reynolds Result [facility] ([place]) 1 [facility] Department [place] [address] * (ABNORMAL) Comprehensive metabolic panel (07/24/2022 11:08 AM 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) Sodium 139 135 - 145 mmol/L [facility] ([place]) Comment:Testing performed by : [facility], [address] [place] [address], [address] Potassium, pl 4.3 3.3 - 4.9 mmol/L [facility] ([place]) Comment:Testing performed by : [facility], [address] [place] [address], [address] Chloride 102 97 - 110 mmol/L [facility] ([place]) Comment:Testing performed by : [address], [address] CO2 27 22 - 32 mmol/L [facility] ([place]) Comment:Testing performed by : [address] [address] Anion gap 10 2 - 15 mmol/L [facility] ([place]) Comment:Testing performed by : [address], [address] BUN 18 8 - 25 mg/dL [facility] ([place]) Comment:Testing performed by : [address], [address] Creatinine 1.12(H) 0.60 - 1.10 mg/dL [facility] ([place]) Comment:Testing performed by : [address], [address] Glucose 239(H) 70 - 199 mg/dL [facility] [...] was last revised 2017. Testing performed by: [address], [address] Calcium 9.3 8.5 - 10.3 mg/dL [facility] ([place]) Comment:Testing performed by : [address] [address] Bilirubin, total 0.3 0.1 - 1.2 mg/dL [facility] ([place]) Comment:Testing performed by : [address] [address] Protein, pl 7.1 6.5 - 8.5 g/dL [facility] ([place]) Comment:Testing performed by : [address], [address] Albumin 3.6 3.5 - 5.0 g/dL [facility] ([place]) Comment:Testing performed by : [address] [address] Alk phos 75 40 - 130 Units/L [facility] ([place]) Comment:Testing performed by : [facility], [address] [place] [address], [address] ALT 17 7 - 45 Units/L [facility] ([place]) Comment:Testing performed by : [facility], [address] [place] [address], [address] AST 27 10 - 45 Units/L [facility] ([place]) Comment:Testing performed by : [facility], [address] [place] [address], [address] Blood 07/24/2022 11:0 8 AM 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 07/24/2022 4:55 PM 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 us Lalito England MD LAB BLOOD ORDERABLES Jessica reynolds Result [facility] ([place]) 1 [facility] Department [place] [address] documented in this encounter Visit Diagnoses Diagnosis Controlled type 2 diabetes mellitus with diabetic polyneuropathy, without long- term current use of insulin (HCC)- Primary Colon cancer screening Special screening for malignant neoplasms, colon Morbid (severe) obesity due to excess calories (HCC) BMI 35.0-35.9,adult Severe obesity (BMI 35.0-39.9) with comorbidity (HCC) Spinal stenosis of lumbar region with neurogenic claudication documented in this encounter Discontinued Medications Medication Sig Discontinue Reason Start Date End Da te blood glucose diagnostic (Contour Next Test Strips) strip Test blood sugar 3 times a day and will montior response. Dx: E11.22. Reorder 07/17/2020 07/24/2022 pen needle, diabetic (BD Ultra-Fine Mini Pen Needle) 31 gauge x 3/16 needle 1 needle as directed Reorder 05/28/2021 07/24/2022 fluticasone propionate (FLONASE) 50 mcg/actuation nasal sprayIndications:Season al allergic rhinitis due to pollen SPRAY 2 SPRAYS INTO EACH NOSTRIL EVERY DAY Alternate therapy 07/03/2022 07/24/2022 documented as of this encounter Historical Medications * This list may reflect changes made after this encounter. Medication Sig Dispense Quantity Refills Last Filled Start D ate End Date omeprazole (PriLOSEC) 20 mg capsule 07/19/2022 03/25/2023 methocarbamoL (ROBAXIN) 750 mg tablet 07/20/2022 03/28/2023 added in this encounter Care Teams Patient Day Coordinator Relationship Specialty Start Date End Date Lalito England MD [address] [facility] [place] [address] PCP - General 08/03/19 Kassi Fontaine RN [address] [place] [address] [address] [place] [address] Assembly Person 07/16/22 08/11/22 documented as of this encounter
--- OUTSIDE RECORDS SUMMARY | 2024-07-11 22:37 | XMS_ITS | Encounter Summary ---
Author Organization [facility] Address [address] [place] [address] Care Team Providers Care Trade Show Coordinator Name Role Phone Lalito England MD Primary Care Provider [phone] [phone] Reason for Referral * Durable Medical Equipment (Routine) - Closed Specialty Diagnoses / Procedures Referred By Contac t Referred To Contact Diagnoses Unsteadiness on feet Spinal stenosis, lumbar region without neurogenic claudication Lumbar radiculopathy Weakness of both lower extremities Procedures Miscellaneous DME Lalito England MD [address] [place] [address] Phone: tel: fax: Referral ID Status Reason Start Date Expiration Date Visits Re quested Visits Authorized [id number] Closed 04/09/2023 05/08/2024 1 1 Encounter Details Date Type Department Care Team (Late st Contact Info) Description 04/09/2023 Telephone [facility] [address] [place] [address] Lalito England MD [address] [place] [address] Social History Tobacco Use Types Packs/Day [...] health care facility (including now)? 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 * Telephone Encounter - Daisy Lui - 04/09/2023 10:18 AM CDT Called patient--- she doesn't care who we use as she has no clue about who to use for DME--- told patient to call back of card to get information on who they prefer she uses, patient doesn't know howto do that. * Telephone Encounter - Daisy Lui - 04/09/2023 9:50 AM CDT Patients sister is here to question orders about an egg shell pillow and a motorized scooter- She stated it was supposed to be ordered at her last visit on 03/28. Any update to this> Pt# [id number] documented in this encounter Plan of Treatment Not on file documented as of this encounter Visit Diagnoses Diagnosis Unsteadiness on feet- Primary Spinal stenosis, lumbar region without neurogenic claudication Lumbar radiculopathy Thoracic or lumbosacral neuritis or radiculitis, unspecified Weakness of both lower extremities Skin breakdown documented in this encounter Orders General Supply Count Last Ordered Date First Or dered Date MISCELLANEOUS DME 1 04/09/2023 ROHO SEAT CUSHION 1 04/09/2023 documented in this encounter Care Teams Trade Show Coordinator Relationship Specialty Start Date End Date Lalito England MD [address] [place] [address] PCP - General 08/03/19 documented as of this encounter
--- OUTSIDE RECORDS SUMMARY | 2024-07-11 22:37 | XMS_ITS | Encounter Summary ---
Author Organization [facility] Healthcare Address [address] [place] [address] Care Team Providers Care Senior Naval Parachutist Name Role Phone Lalito England MD Primary Care Provider [phone] Reason for Referral * Diagnostic Imaging (Routine) - Closed Specialty Diagnoses / Procedures Referred By Giuliana boone Referred To Contact Diagnoses Encounter for screening mammogram for malignant neoplasm of breast Procedures SCREENING MAMMOGRAM BILATERAL W Lalito Doshi MD [address] [place] [address] Phone: tel: fax: [address] [phone] Referral ID Status Reason Start Date Expiration Date Visits Re quested Visits Authorized [id number] Closed 03/28/2023 04/26/2024 1 1 EXOLOGIST Reason for Visit * Diagnostic Imaging (Routine) - Closed Specialty Diagnoses / Procedures Referred By Giuliana boone Referred To Contact Diagnoses Encounter for screening mammogram for malignant neoplasm of breast Procedures SCREENING MAMMOGRAM BILATERAL W Lalito Doshi MD [address] [place] [address] Phone: tel: fax: [address] [phone] Referral ID Status Reason Start Date Expiration Date Visits Re quested Visits Authorized [id number] Closed 03/28/2023 04/26/2024 1 1 Encounter Details Date Type Department Care Team (Latest Contact Info) Description 05/23/2023 1:42 PM REFLEXOLOGIST - 05/23/2023 11:59 PM REFLEXOLOGIST Hospital Encounter [facility] [address] [place] [id number] Encounter for screening mammogram for malignant neoplasm of breast Discharge Disposition: Discharge to home or self [...] on file Legal Sex Female 11:52 PM REFLEXOLOGIST Gender Identity Not on file Sexual Orientation Not on file documented as of this encounter Last Filed Vital Signs Vital Sign Reading Time Taken Comments Blood Pressure - - Pulse - - Temperature - - Respiratory Rate - - Oxygen Saturation - - Inhaled Oxygen Concentration - - Weight - - Height 167.6 cm (5' 6 ) 05/23/2023 1:58 PM REFLEXOLOGIST Body Mass Index - - documented in this encounter Medications at Time of Discharge blood-glucose meter (CONTOUR NEXT USB METER) misc test as directed 1 each 0 4 insulin aspart (NovoLOG) 100 unit/mL (3 mL) pen for injectionIndicati ons:Controlled type 2 diabetes mellitus with diabetic polyneuropathy, without long-term current use of insulin (HCC) Inject 15 Units under the skin 3 (three) times a day before meals 84 mL 2 3 lancets (MICROLET LANCET) misc test by fingerstick route 3 times daily 300 each 3 6 naloxone (NARCAN) 4 mg/actuation spray,non-aerosol Administer 1 spray into affected nostril(s) as needed for opioid reversal 1 each 2 nystatin powder Apply topically 4 (four) times a day 60 g 3 3 08/05/19 24 albuterol HFA (PROVENTIL HFA,VENTOLIN HFA,PROAIR HFA) 90 mcg/actuation inhaler Inhale 2 puffs every 6 (six) hours as needed for wheezing 1 each 2 3 01/07/20 24 alendronate (FOSAMAX) 70 mg tabletIndications :Age-related osteoporosis without current pathological fracture TAKE 1 TABLET BY MOUTH ONE TIME PER WEEK 12 tablet 2 2 06/12/20 23 apixaban (ELIQUIS) 2.5 mg tablet Take 1 tablet (2.5 mg total) by mouth 2 (two) times a day 05/26/20 23 apixaban (ELIQUIS) 5 mg tablet Take 1 tablet (5 mg total) by mouth 2 (two) times a day 11/28/19 24 aspirin 81 mg enteric coated tabletIndications :prevention of thrombosis Take 1 tablet (81 mg total) by mouth track inspector before breakfast 11/28/19 24 blood glucose diagnostic (Contour Next Test Strips) strip Test blood sugar 3 times a day and will montior response. Dx: E11.22. 300 each 3 3 09/11/19 24 calcium carbonate-vitamin D3 500 mg(1,250mg) -400 unit tablet Take one by mouth two times per day 0 0 8 04/14/20 24 cloNIDine (CATAPRES) 0.1 mg tabletIndications :Hypertension associated with type 2 diabetes mellitus (HCC) TAKE 1/2 TABLET BY MOUTH TWO TIMES A DAY 90 tablet 1 2 06/12/20 23 Eliquis 5 mg tablet Take 1 tablet (5 mg total) by mouth 2 (two) times a day 2 05/26/20 23 fluticasone propionate (FLONASE) 50 mcg/actuation nasal sprayIndications: Seasonal allergic rhinitis due to pollen Administer 2 sprays into each nostril daily 48 mL 1 3 08/14/19 24 fluticasone propionate (Flovent Diskus) 100 mcg/actuation diskus inhaler Inhale 1 puff 2 (two) times a day Rinse mouth with water after use. Do not swallow. 60 each 3 3 12/29/19 24 furosemide (LASIX) 20 mg tablet Take 2 tablets (40 mg total) by mouth daily 180 tablet 4 3 04/01/20 24 gabapentin (NEURONTIN) 100 mg capsule Take 1 capsule (100 mg total) by mouth 3 (three) times a day 90 capsule 11 1 06/08/20 23 HYDROcodone-aceta minophen (NORCO) 5-325 mg per tablet Take 1 tablet by mouth every 6 (six) hours as needed for pain 120 tablet 3 06/04/20 23 LANTUS 100 unit/mL (3 mL) pen for injectionIndicati ons:Controlled type 2 diabetes mellitus with diabetic polyneuropathy, without long-term current use of insulin (HCC) INJECT 48 UNITS SUBCUTANEOUSLY DAILY 30 mL 5 2 05/26/20 23 montelukast (SINGULAIR) 10 mg tablet TAKE 1 TABLET BY MOUTH EVERYDAY AT BEDTIME 90 tablet 1 2 06/12/20 23 omeprazole (PriLOSEC) 20 mg capsule TAKE 1 CAPSUEL BY MOUTH TWICE DAILY FOR GERD 180 capsule 5 3 06/28/20 24 pen needle, diabetic (BD Ultra-Fine Mini Pen Needle) 31 gauge x /16 needle 1 needle as directed 300 each 3 3 01/09/20 24 polyethylene glycol (MIRALAX) 17 gram/dose powder Take 17 g by mouth daily 850 g 1 3 04/14/20 24 semaglutide (OZEMPIC) 1 mg/dose (4 mg/3 mL) pen injector injection Inject 1 mg under the skin once a week 3 mL 2 3 05/26/20 23 semaglutide 0.25 mg or 0.5 mg (2 mg/3 mL) pen injector injectionIndicati ons:type 2 diabetes mellitus Inject 0.5 mg under the skin once a week 3 mL 3 05/26/20 23 simvastatin (ZOCOR) 40 mg tabletIndications :Controlled type 2 diabetes mellitus with diabetic polyneuropathy, without long-term current use of insulin (HCC) TAKE 1 TABLET BY MOUTH EVERY DAY AT NIGHT 90 tablet 1 2 06/12/20 23 documented as of this encounter Discharge Disposition Disposition Code Departure Means Destination Discharge to home or self care documented in this encounter Plan of Treatment Not on file documented as of this encounter Procedures Procedure Name Priority Date/Time Associated Diagnosis Comments SCREENING MAMMOGRAM BILATERAL W FADI Schedule Routine, Read Routine (OP Routine) 05/23/2023 2:24 PM REFLEXOLOGIST Encounter for screening mammogram for malignant neoplasm of breast documented in this encounter Results * SCREENING MAMMOGRAM BILATERAL W FADI (05/23/2023 2:24 PM REFLEXOLOGIST) Anatomical Region Laterality Modality Breast Bilateral Mammography 05/23/2023 3:54 PM REFLEXOLOGIST Impressions 05/23/2023 3:54 PM REFLEXOLOGIST No mammographic evidence of malignancy (on limited assessment, see above). A 1 year screening mammogram is recommended. BI-RADS: 2 - Benign. The patient has been or will be contacted. The patient will be entered into a reminder system with a target due date of 1 year for her next mammogram. Electronically signed by: Salomon Max M.D. Narrative 05/23/2023 3:54 PM REFLEXOLOGIST EXAMINATION: SCREENING MAMMOGRAM BILATERAL W FADI ORDERING HEALTHCARE PROVIDER: LALITO ENGLAND HISTORY: Routine screening mammography. ??Bilateral breast [...] suspicious finding in either breast on mammogram. Lalito England MD IMG MAMMO PROCEDURES Jessica l Result documented in this encounter Visit Diagnoses Diagnosis Encounter for screening mammogram for malignant neoplasm of breast documented in this encounter Care Teams Senior Naval Parachutist Relationship Specialty Start Date End Date Lalito England MD [address] [place] [address] PCP - General 08/03/19 documented as of this encounter
--- OUTSIDE RECORDS SUMMARY | 2024-07-11 22:37 | XMS_ITS | Encounter Summary ---
Author Organization [facility] Medical Group Address [address] [place] [address] Care Team Providers Care Prepress Operator Name Role Phone Lalito England MD Primary Care Provider [phone] Encounter Details Date Type Department Care Team (Late st Contact Info) Description 10/23/2022 12:00 PM CDT Office Visit [facility] [address] [place] [address] Lalito England MD [address] [place] [address] Type 2 diabetes mellitus with stage 3b chronic kidney disease, with long-term current use of insulin ([facility]) (Primary Dx); Hypertension associated with type 2 diabetes mellitus ([facility]); Type 2 diabetes mellitus with diabetic neuropathy, without long-term current use of insulin (CMS/HCC) (HCC); Spinal stenosis, lumbar region without neurogenic claudication; Gastro-esophageal reflux disease without esophagitis Social History Tobacco Use Types Packs/Day Years [...] on file Legal Sex Female 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 [facility] Criss Ly Chief Complaint. No chief complaint on file. HPI. Patient is a 72 y.o. female Ms. Ly was seen in her apaprtmetn at [facility] as she is in rehab there. Beautiful facility andstrong support but patient understandably with goal to return home. Patient seen in wheelchiar and able to stand with assistance in bathroom with psychiatric nurse present. No open wounds/sores on the skin. Continues to improve strenght. No chest pains/pressures/palptiations. Appettite is good. Following diabetic diet in faciility. Diabetes She presents for her follow-up diabetic visit. She has type 2 diabetes mellitus. Her disease coursehas been stable. Pertinent negatives for hypoglycemia include no dizziness, headaches, mood changes, nervousness/anxiousness, sleepiness or tremors. Associated symptoms include fatigue and foot paresthesias. Pertinent negatives for diabetes include no chest pain, no foot ulcerations and no weakness. Symptoms are stable. Risk factors for coronary artery disease include diabetes mellitus, dyslipidemia, hypertension, obesity, sedentary lifestyle, stress and post-menopausal. Current diabetic treatment includes insulin injections. She is compliant with treatment most of the time. Her weight is stab le. She is following a diabetic and generally healthy diet. Meal planning includes avoidance of concentrated sweets. She has not had a previous visit with a dietitian. She rarely participates in exercise. Eye exam is not current. Past Medical History: Diagnosis Date Benign hypertension with CKD (chronic kidney disease) stage III (HCC) Gastroesophageal reflux disease GERD HX OTHER MEDICAL PMO HX OTHER MEDICAL SUPERVISOR INSPECTION DEPARTMENT HX OTHER MEDICAL [facility] OA HX OTHER MEDICAL 2008 Discectomy, cervical HX OTHER MEDICAL Fall HX OTHER MEDICAL Left proximal femoral Gamma Nail fixation proximal; Comments: [facility] 07/25/2015 - HX OTHER MEDICAL RTKR 2001.; Comments: [facility] 07/25/2015 - HX OTHER MEDICAL LTKR 2006.; Comments: [facility] 07/25/2015 - HX OTHER MEDICAL Back surgery 2006.; Comments: [facility] 07/25/2015 - HX OTHER MEDICAL Cervical disc surg. 2007.; Comments: [facility] 07/25/2015 - HX OTHER MEDICAL Breast reduction 2008.; Comments: [facility] 07/25/2015 - HX OTHER MEDICAL left hip and leg surgery HX OTHER MEDICAL conversion of previous hip arthroplasty left hip; Comments: [facility] TCU unit 02/06 - 02/17/16 for rehabilitation. [...] HISTORY 2001 R TKA OTHER SURGICAL HISTORY 2007 back surgery - microdecompression Lumbar OTHER SURGICAL HISTORY Fall: Medical Management OTHER SURGICAL HISTORY 2016 conversion of previous hip arthroplasty left hip: [...] 10 mg tablet Eliquis 5 mg tablet fluticasone propionate (Flovent Diskus) 100 mcg/actuation diskus [...] 100 unit/mL (3 mL) pen for injection nystatin powder omeprazole (PriLOSEC) [address] (PROTONIX) 40 mg EC tablet pen needle, diabetic (BD Ultra-Fine Mini Pen Needle) 31 gauge x 3/16 needle polyethylene glycol (MIRALAX) 17 gram/dose powder simvastatin (ZOCOR) 40 mg tablet No Known [...] dysuria, hematuria and urgency. Musculoskeletal: Positive for arthralgias. Negative for back pain, myalgias and neck pain. Skin: Negative for rash. Neurological: Negative for dizziness, tremors, weakness, light-headedness and headaches. Hematological: Negative for adenopathy. Psychiatric/Behavioral: Negative for dysphoric mood, sleep disturbance and suicidal ideas. The patient is not nervous/anxious. There were no vitals taken for this visit. Physical Exam: Physical Exam Vitals reviewed. Constitutional: [...] this visit: Type 2 diabetes mellitus with stage 3b chronic kidney disease, with long-term current use of insulin (HCC) (Primary) Secondayr prevneiotn. Reviewed target glycemic control and will montior erpsonse. Hypertension associated with type 2 diabetes mellitus (HCC) Stable and will colma5fls response. WIll montior change. Type 2 diabetes mellitus with diabetic neuropathy, without long-term current use of insulin ([facility]/HCC) (HCC) Will [id number] o follow repsonse. Spinal stenosis, lumbar region without neurogenic claudication Lumbago and continue rehab and strengthening. Gastro-esophageal reflux disease without esophagitis Stable on PPI and will follow response. Other orders - furosemide (LASIX) 20 mg tablet; Take 2 tablets (40 mg total) by mouth daily BMI Follow-up includes: nutrition counseling and exercise counseling. There is no height or weight on file to calculate BMI. Lalito England MD documented in this encounter Plan of Treatment Not on file documented as of this encounter Visit Diagnoses Diagnosis Type 2 diabetes mellitus with stage 3b chronic kidney disease, with long-term current use of insulin ([facility])- Primary Hypertension associated with type 2 diabetes mellitus ([facility]) Type 2 diabetes mellitus with diabetic neuropathy, without long-term current use of insulin ([facility]) Spinal stenosis, lumbar region without neurogenic claudication Gastro-esophageal reflux disease without esophagitis documented in this encounter Discontinued Medications Medication Sig Discontinue Reason Start Date End Da te furosemide (LASIX) 20 mg tabletIndications:Hypert ension associated with type 2 diabetes mellitus ([facility]) TAKE 1 TABLET BY MOUTH EVERY DAY Alternate therapy 02/05/2022 10/23/2022 documented as of this encounter Care Teams Prepress Operator Relationship Specialty Start Date End [place] [address] PCP - General 08/03/19 documented as of this encounter
--- OUTSIDE RECORDS SUMMARY | 2024-07-11 22:37 | XMS_ITS | Encounter Summary ---
Author Organization [facility] Medical Group Address [address] [place] [address] Care Team Providers Care Interior Design Consultant Name Role Phone Lalito England MD Primary Care Provider [phone] Kassi Fontaine RN Unavailable [phone] Reason for Visit * Reason Onset Date Comments Additional Services Or Orders 08/01/2022 Encounter Details Date Type Department Care Team (Late st Contact Info) Description 08/01/2022 Telephone [facility] [address] [place] [address] Lalito England MD [address] [place] [address] Additional Services Or Orders Social [...] on file Legal Sex Female 11:52 PM CVICU NURSE Gender Identity Not on file Sexual Orientation Not on file documented as of this encounter Miscellaneous Notes * Telephone Encounter - Azra Roach MA - 08/01/2022 3:36 PM CST Order faxed to number below U NURSE * Telephone Encounter - Azra Roach MA - 08/01/2022 2:12 PM CVICU NURSE [place] is wanting to get a UA on the patient because the patient family is calling stating thatpatient is off states she is not acting like her normal self. Patient is not complaining of any UA symptoms but the family would like to have UA done to rule out infection. If ok with doing a urine, will need a written order faxed to number below. Please advise. U NURSE * Telephone Encounter - Ludmila Chen - 08/01/2022 11:22 AM CST Additional Services or Orders Type of Service Requested:Labs Reason for Request (e.g. condition/symptom, date of COVID exposure if applicable): Patient is not retaining information like she normally does Details Regarding Additional Services (e.g. type of home health, type of equipment, type of test, etc.): UA Where will services be performed? (if outside of the practice, facility name, address, phone/fax offacility): [facility] fax [phone] Caller's Callback #: [phone] Additional Comments: Patient is temporarily staying at the [facility] for respite care. Sending messagehigh priority since patient is symptomatic Does message need to be routed?Yes-Action Needed U NURSE documented in this encounter Plan of Treatment Not on file documented as of this encounter Visit Diagnoses Not on filedocumented in this encounter Care Teams Interior Design Consultant Relationship Specialty Start Date End Date Lalito England MD [address] [place] [address] PCP - General 08/03/19 Kassi Fontaine RN [address] [place] [address] DR H[address]Y [address] [place] [id number] Enrolled Nurse 07/16/22 08/11/22 documented as of this encounter
--- OUTSIDE RECORDS SUMMARY | 2024-07-11 22:37 | XMS_ITS | Encounter Summary ---
Author Organization [facility] Healthcare Address [address] [place] [address] Care Team Providers Care Cma Or Lpn Name Role Phone Lalito England MD Primary Care Provider [phone] Reason for Referral * MRI/CAT/PET Scan (Routine) - Closed Specialty Diagnoses / Procedures Referred By Contac t Referred To Contact Radiology Diagnoses Spondylolisthesis Procedures MRI Lumbar Spine WO Contrast Robinson Block MD [address] [address] Phone: tel: fax: [address] [phone] Referral ID Status Reason Start Date Expiration Date Visits Re quested Visits Authorized [id number] Closed 06/24/2022 09/22/2022 1 1 ITY FUNDRAISER Reason for Visit * MRI/CAT/PET Scan (Routine) - Closed Specialty Diagnoses / Procedures Referred By Contac t Referred To Contact Radiology Diagnoses Spondylolisthesis Procedures MRI Lumbar Spine WO Contrast Robinson Block MD [address] [address] Phone: tel: fax: [address] [phone] Referral ID Status Reason Start Date Expiration Date Visits Re quested Visits Authorized [id number] Closed 06/24/2022 09/22/2022 1 1 Encounter Details Date Type Department Care Team (Latest Contact Info) Description 06/24/2022 10:32 AM CHARITY FUNDRAISER - 06/24/2022 11:59 PM [facility] [address] [place] [address] Spondylolisthesis Discharge Disposition: Discharge to home or self [...] more drinks on one occasion? 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 08/07/19 23 alendronate (FOSAMAX) 70 mg tabletIndications :Age-related osteoporosis without current pathological fracture TAKE 1 TABLET BY MOUTH ONE TIME PER WEEK 12 tablet 2 2 06/12/20 23 apixaban (ELIQUIS) 2.5 mg tablet Take 1 tablet (2.5 mg total) by mouth 2 (two) times a day 05/26/20 23 aspirin 81 mg enteric coated tabletIndications :prevention of thrombosis Take 1 tablet (81 mg total) by mouth press service reader before breakfast 11/28/19 24 blood glucose diagnostic (Contour Next Test Strips) strip Test blood sugar 3 times a day and will montior response. Dx: E11.22. 300 each 3 1 07/24/19 23 calcium carbonate-vitamin D3 500 mg(1,250mg) -400 unit tablet Take one by mouth two times per day 0 0 8 04/14/20 24 cloNIDine (CATAPRES) 0.1 mg tabletIndications :Hypertension associated with type 2 diabetes mellitus (HCC) TAKE 1/2 TABLET BY MOUTH TWO TIMES A DAY 90 tablet 1 2 06/12/20 23 cyclobenzaprine (FLEXERIL) 10 mg tablet Take 1 tablet (10 mg total) by mouth nightly as needed for muscle spasms 30 tablet 2 2 03/28/20 23 Eliquis 5 mg tablet Take 1 tablet (5 mg total) by mouth 2 (two) times a day 2 05/26/20 23 fluticasone propionate (FLONASE) 50 mcg/actuation nasal sprayIndications: Seasonal allergic rhinitis due to pollen SPRAY 2 SPRAYS INTO EACH NOSTRIL EVERY DAY 48 mL 1 2 07/03/20 22 furosemide (LASIX) 20 mg tabletIndications :Hypertension associated with type 2 diabetes mellitus (HCC) TAKE 1 TABLET BY MOUTH EVERY DAY 90 tablet 1 2 10/24/19 23 gabapentin (NEURONTIN) 100 mg capsule Take 1 capsule (100 mg total) by mouth 3 (three) times a day 90 capsule 11 1 06/08/20 23 glipiZIDE (GLUCOTROL) 5 mg tabletIndications :type 2 diabetes mellitus Take 0.5 tablets (2.5 mg total) by mouth daily as needed (with largest meal of the day) 45 tablet 1 1 03/28/20 23 LANTUS 100 unit/mL (3 mL) pen for injectionIndicati ons:Controlled type 2 diabetes mellitus with diabetic polyneuropathy, without long-term current use of insulin ([facility]) INJECT 48 UNITS SUBCUTANEOUSLY DAILY 30 mL 5 2 05/26/20 23 montelukast (SINGULAIR) 10 mg tablet TAKE 1 TABLET BY MOUTH EVERYDAY AT BEDTIME 90 tablet 1 2 06/12/20 23 NovoLOG 100 unit/mL (3 mL) pen for injectionIndicati ons:Controlled type 2 diabetes mellitus with diabetic polyneuropathy, without long-term current use of insulin (HCC) INJECT 32 UNITS UNDER THE SKIN 3 (THREE) TIMES A DAY BEFORE MEALS 84 mL 2 2 03/12/[address] (PROTONIX) 40 mg EC tabletIndications :Gastroesophageal reflux disease TAKE 1 TABLET BY MOUTH TWICE A DAY 180 tablet 1 2 03/28/20 23 pen needle, diabetic (BD Ultra-Fine Mini Pen Needle) 31 gauge x 3/16 needle 1 needle as directed 300 each 3 1 07/24/19 23 simvastatin (ZOCOR) 40 mg tabletIndications :Controlled [...] CONTRAST Schedule Routine, Read Routine (OP Routine) 06/24/2022 11:33 AM CHARITY FUNDRAISER Spondylolisthesis documented in this encounter Results * MRI Lumbar Spine WO Contrast (06/24/2022 11:33 AM CHARITY FUNDRAISER) Anatomical Region Laterality Modality Spine N/A Magnetic Resonan ce 06/24/2022 12:3 9 PM CHARITY FUNDRAISER Narrative 06/24/2022 12:50 PM CHARITY FUNDRAISER EXAM DESCRIPTION: ?? MRI LUMBAR SPINE WO CONTRAST REASON FOR STUDY: Chronic back pain with bilateral lower extremity weakness. ?? No provided history of trauma or inciting and/or aggravating events. ??No provided past medical or surgical history. TECHNIQUE: ??Sagittal and axial imaging of the lumbar spine includes T1, T2, STIR sequences. ?? Images saved to PACS. COMPARISON: ?? CT thoracic and lumbar spine without contrast 01/16/2022; MRI cervical/thoracic/lumbar spine without contrast 01/17/2022. FINDINGS: SEGMENTATION: ?? No transitional anatomy. The lowest well-developed disc space is labeled L5-S1. ALIGNMENT: ?? Redemonstration of mild levoscoliosis of the lumbar spine centered at L3-4 and grade 1 anterolisthesis L4 on L5. VERTEBRAE: ?? No MR evidence of acute-subacute fracture. ??Vertebral body heights unchanged. ??Spondylosis. ??Scattered tiny hemangiomas and/or patchy fatty marrow replacement about the osseous architecture. DISC HEIGHT: ?? Multilevel variable vacuum disc phenomenon, intervertebral disc desiccation, and loss of intervertebral disc height about the lower thoracic through lumbar spine. HARDWARE: ?? None in the lumbar spine, noting postsurgical changes at the level of L4-5. ??Correlate with surgical history/operative details. CORD/CAUDA: ?? Normal in size and signal intensity with conus medullaris termination at L1, noting bunching of the cauda equina pursuant to below-described compressive disc disease. LOWER THORACIC: ?? Incompletely imaged. ??No stenosis demonstrated. INDIVIDUAL DISC LEVELS: T12-L1: Mild posterior predominant annular disc bulge. ??Mild bilateral hypertrophic facet arthropathy. ??Mild ligamentum flavum thickening. ??No spinal canal stenosis. ??No significant neural foraminal stenosis. L1-2: ?? Minimal annular disc bulge. ??Mild bilateral hypertrophic facet arthropathy. ??No spinal canal stenosis. ??Mild bilateral inferior neural foraminal stenosis, noting combination of disc and arthropathic facet variable slight contact with exiting bilateral L1 nerve roots. L2-3: ?? Posterior osteophytosis with annular disc bulge of the residual intervertebral disc. ??Mild-moderate bilateral hypertrophic facet arthropathy. ?? Ligamentum flavum thickening. ??Compromise of the bilateral lateral recesses, noting combination of disc and arthropathic facet variable contact with the descending bilateral L3 nerve roots. Moderate-severe spinal canal stenosis. Mild bilateral inferior neural foraminal stenosis, noting variable slight disc contact with the exiting bilateral L2 nerve roots. L3-4: Mild posterior osteophytosis with annular disc bulge of the residual intervertebral disc. ??Moderate bilateral hypertrophic facet arthropathy. ?? Ligamentum flavum thickening eccentric to the right. ??Compromise of the right and slight compromise of left lateral recesses, noting combination of disc and arthropathic facet slight contact with the descending right L4 nerve roots. ?? Moderate-severe spinal canal stenosis. ??Moderate bilateral neural foraminal stenosis, noting combination of inferior pedicular surface, osteophytosis/disc, and arthropathic facet variable contact with the exiting bilateral L3 nerve roots. L4-5: ??Uncovering of the intervertebral disc with annular disc bulge and small central disc protrusion. ??Marked bilateral hypertrophic facet arthropathy. ?? Compromise of the bilateral lateral recesses, noting combination of disc and arthropathic facet contact with the descending bilateral L5 nerve roots. ?? Severe spinal canal stenosis. ??Severe bilateral, left greater than right, neural foraminal stenosis, noting combination of inferior pedicular surface, disc, and arthropathic facet variable contact with and/or deformation of the exiting bilateral L4 nerve roots. L5-S1: Annular disc bulge. ??Moderate marked right and moderate left hypertrophic facet arthropathy, noting slight fluid in the left facet joint suggestive of facet synovitis. ??No spinal canal stenosis. ??Severe right and mild left neural foraminal stenosis, noting combination of inferior pedicular surface, disc, and arthropathic facet deformation of the exiting right and combination of disc and arthropathic facet contact with the exiting left L5 nerve roots. UPPER SACRUM: Visualized upper sacrum intact. SOFT TISSUES: No acute abnormality. OTHER: None. IMPRESSION: Mild levoscoliosis of the lumbar spine centered at L3-4 in association with constellation of spondylolisthesis, spondylosis, and degenerative disc disease producing multilevel variable, to include severe, compromise of the lateral recesses, spinal canal stenosis, and neural foraminal stenosis of the postoperative lumbar spine as detailed level by level above, again maximal at L4-5. THIS IS AN ELECTRONICALLY VERIFIED FINAL REPORT 06/24/2022 12:50 PM - Electronically signed by ??Bin Schulz M.D. ALMA: ALMA D: ??06/24/2022 12:50 PM T: ??06/24/2022 12:50 PM Report ID: [id number] Reading Location: ??[id number] Procedure Note Bin Schulz MD - 06/24/2022 EXAM DESCRIPTION: MRI LUMBAR SPINE WO CONTRAST REASON FOR STUDY: Chronic back pain with bilateral lower extremityweakness. No provided history of trauma or inciting and/or aggravating events. No provided past medical or surgical history. TECHNIQUE: Sagittal and axial imaging of the lumbar spine includes T1,T2, STIR sequences. Images saved to PACS. COMPARISON: CT thoracic and lumbar spine without contrast 01/16/2022;MRI cervical/thoracic/lumbar spine without contrast 01/17/2022. FINDINGS: SEGMENTATION: No transitional anatomy. The lowest well-developed discspace is labeled L5-S1. ALIGNMENT: Redemonstration of mild levoscoliosis of the lumbar spine centered at L3-4 and grade 1 anterolisthesis L4 on L5. VERTEBRAE: No MR evidence of acute-subacute fracture. Vertebral body heights unchanged. Spondylosis. Scattered tiny hemangiomas and/or patchy fatty marrow replacement about the osseous architecture. DISC HEIGHT: Multilevel variable vacuum disc phenomenon, intervertebraldisc desiccation, and loss of intervertebral disc height about the lowerthoracic through lumbar spine. HARDWARE: None in the lumbar spine, noting postsurgical changes at thelevel of L4-5. Correlate with surgical history/operative details. CORD/CAUDA: Normal in size and signal intensity with conus medullaris termination at L1, noting bunching of the cauda equina pursuant to below-described compressive disc disease. LOWER THORACIC: Incompletely imaged. No stenosis demonstrated. INDIVIDUAL DISC LEVELS: T12-L1: Mild posterior predominant annular disc bulge. Mild bilateral hypertrophic facet arthropathy. Mild ligamentum flavum thickening. Nospinal canal stenosis. No significant neural foraminal stenosis. L1-2: Minimal annular disc bulge. Mild bilateral hypertrophic facet arthropathy. No spinal canal stenosis. Mild bilateral inferior neural foraminal stenosis, noting combination of disc and arthropathic facetvariable slight contact with exiting bilateral L1 nerve roots. L2-3: Posterior osteophytosis with annular disc bulge of the residual intervertebral disc. Mild-moderate bilateral hypertrophic facetarthropathy. Ligamentum flavum thickening. Compromise of the bilateral lateralrecesses, noting combination of disc and arthropathic facet variable contact withthe descending bilateral L3 nerve roots. Moderate-severe spinal canalstenosis. Mild bilateral inferior neural foraminal stenosis, noting variable slightdisc contact with the exiting bilateral L2 nerve roots. L3-4: Mild posterior osteophytosis with annular disc bulge of the residual intervertebral disc. Moderate bilateral hypertrophic facet arthropathy. Ligamentum flavum thickening eccentric to the right. Compromise of theright and slight compromise of left lateral recesses, noting combination of discand arthropathic facet slight contact with the descending right L4 nerveroots. Moderate-severe spinal canal stenosis. Moderate bilateral neuralforaminal stenosis, noting combination of inferior pedicular surface, osteophytosis/disc, and arthropathic facet variable contact with theexiting bilateral L3 nerve roots. L4-5: Uncovering of the intervertebral disc with annular disc bulge andsmall central disc protrusion. Marked bilateral hypertrophic facet arthropathy. Compromise of the bilateral lateral recesses, noting combination of discand arthropathic facet contact with the descending bilateral L5 nerve roots. Severe spinal canal stenosis. Severe bilateral, left greater than right, neural foraminal stenosis, noting combination of inferior pedicularsurface, disc, and arthropathic facet variable contact with and/or deformation ofthe exiting bilateral L4 nerve roots. L5-S1: Annular disc bulge. Moderate marked right and moderate left hypertrophic facet arthropathy, noting slight fluid in the left facetjoint suggestive of facet synovitis. No spinal canal stenosis. Severe rightand mild left neural foraminal stenosis, noting combination of inferiorpedicular surface, disc, and arthropathic facet deformation of the exiting right and combination of disc and arthropathic facet contact with the exiting leftL5 nerve roots. UPPER SACRUM: Visualized upper sacrum intact. SOFT TISSUES: No acute abnormality. OTHER: None. IMPRESSION: Mild levoscoliosis of the lumbar spine centered at L3-4 in associationwith constellation of spondylolisthesis, spondylosis, and degenerative discdisease producing multilevel variable, to include severe, compromise of thelateral recesses, spinal canal stenosis, and neural foraminal stenosis of the postoperative lumbar spine as detailed level by level above, again maximalat L4-5. THIS IS AN ELECTRONICALLY VERIFIED FINAL REPORT 06/24/2022 12:50 PM - Electronically signed by Bin Schulz M.D. ALMA: ALMA Report ID: [id number] Reading Location: [id number] Robinson lBock MD IMG MRI PROCEDURES Jessica l Result documented in this encounter Visit Diagnoses Diagnosis Spondylolisthesis Congenital spondylolisthesis documented in this encounter Care Teams Cma Or Lpn Relationship Specialty Start Date End Date Lalito England MD [address] [place] [address] PCP - General 08/03/19 documented as of this encounter
--- OUTSIDE RECORDS SUMMARY | 2024-07-11 22:37 | XMS_ITS | Encounter Summary ---
Author Organization [facility] Group Address [address] [place] [address] Care Team Providers Care Dredgemaster Name Role Phone Lalito Engalnd MD Primary Care Provider [phone] Reason for Visit * Reason Onset Date Comments Call Back 03/08/2022 Encounter Details Date Type Department Care Team (Late st Contact Info) Description 03/07/2022 Telephone [facility] [address] [place] [address] Lalito England MD [address] [place] [address] Call Back Social History Tobacco [...] file 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 Pt was unsure. Called backline and transferred call. Caller???s Call back #: [phone] Does message need to be routed? No * Telephone Encounter - Daisy Lui - 03/08/2022 8:59 AM CDT Left voicemail for pt again on 03/08@858am * Telephone Encounter - Daisy Lui - 03/07/2022 3:41 PM CDT lvm for pt to call and schedule Surgery clearance appt. Per jordyn seals to use a with Dr England. documented in this encounter Plan of Treatment Not on file documented as of this encounter Visit Diagnoses Not on filedocumented in this encounter Care Teams Dredgemaster Relationship Specialty Start Date End Date [place] [address] PCP - General 08/03/19 documented as of this encounter
--- OUTSIDE RECORDS SUMMARY | 2024-07-11 22:37 | XMS_ITS | Encounter Summary ---
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
--- OUTSIDE RECORDS SUMMARY | 2024-07-11 22:37 | XMS_ITS | Encounter Summary ---
Author Organization [facility] Address [address] [place] [address] Care Team Providers Care Support Dba Name Role Phone Lalito England MD Primary Care Provider [phone] Reason for Visit * Reason Onset Date Comments Med Refill 04/11/2023 Medical Question/Miscellaneous 04/11/2023 Encounter Details Date Type Department Care Team (Late st Contact Info) Description 04/11/2023 Telephone [facility] [address] [place] [address] Lalito England MD [address] [place] [address] Med Refill; Medical Question/Miscellaneous Social History Tobacco Use Types [...] on file 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 Gender Identity Not on file Sexual Orientation Not on file documented as of this encounter Ordered Prescriptions Prescription Sig Dispense Quantity Refills Last Filled Start Date End Date insulin aspart (NovoLOG) 100 unit/mL (3 mL) pen for injectionIndicatio ns:Controlled type 2 diabetes mellitus with diabetic polyneuropathy, without long-term current use of insulin (HCC) Inject 15 Units under the skin 3 (three) times a day before meals 84 mL 2 04/14/2023 insulin aspart (NovoLOG) 100 unit/mL (3 mL) pen for injectionIndicatio ns:Controlled type 2 diabetes mellitus with diabetic polyneuropathy, without long-term current use of insulin (HCC) Inject 10 Units under the skin 3 (three) times a day before meals 84 mL 2 04/11/2023 04/14/2023 documented in this encounter Miscellaneous Notes * Telephone Encounter - Devi George MA - 04/14/2023 1:24 PM CDT Pt aware * Telephone Encounter - Devi George MA - 04/14/2023 12:[address] England, would you be willing to send in new rx with increased units? * Telephone Encounter - Ludmila Chen - 04/14/2023 11:44 AM CDT Medication Question/Clarification Medication Name(s): novolog What is the question or clarification needed? Rx was changed from 32 units three times per day to 10 units three times per day. This was due to her starting ozempic. Patient still has blood sugar spikes and sometimes has to take more than the 10 units. She would like to know if pcp will increase her units because she cannot refill rx until 04/19 unless pcp adjusts the rx If needed, Pharmacy(s) [facility] Caller???s Callback #: [phone] Additional Comments: she is out of rx-high priority Does message need to be routed? Yes-Action Needed * Telephone Encounter - Devi George MA - 04/11/2023 2:[address] England, please advise if you would like to increase the amount of units that pt takes. * Telephone Encounter - Marylou Tovar MA - 04/11/2023 2:36 PM CDT Sent in medication, pt aware, Thanks * Telephone Encounter - Citlaly Edwards - 04/11/2023 2:16 PM CDT Medication Question/Clarification Medication Name(s): insulin aspart What is the question or clarification needed? Patient reports she needs her medication as her bloodsugar is still higher If needed, Pharmacy(s) medication(s) should be sent to: on file Caller???s Callback #: [phone] Additional Comments: Patient is on the last pen injector and will be out on Friday. Patient states she is taking the ozempic and the insulin aspart (she states PCP reduced from 32 units to 10 units) but her blood sugar is not stabilizing. Does message need to be routed? Yes-Action Needed documented in this encounter Plan of Treatment Not on file documented as of this encounter Visit Diagnoses Diagnosis Controlled type 2 diabetes mellitus with diabetic polyneuropathy, without long- term current use of insulin (HCC) documented in this encounter Discontinued Medications Medication Sig Discontinue Reason Start Date End Da te insulin aspart (NovoLOG) 100 unit/mL (3 mL) pen for injectionIndications:Con trolled type 2 diabetes mellitus with diabetic polyneuropathy, without long-term current use of insulin (HCC) Inject 10 Units under the skin 3 (three) times a day before meals Reorder 03/12/2023 04/11/2023 insulin aspart (NovoLOG) 100 unit/mL (3 mL) pen for injectionIndications:Con trolled type 2 diabetes mellitus with diabetic polyneuropathy, without long-term current use of insulin (HCC) Inject 10 Units under the skin 3 (three) times a day before meals Reorder 04/11/2023 04/14/2023 documented as of this encounter Care Teams Support Dba Relationship Specialty Start Date End Date Lalito England MD [address] [place] [address] PCP - General 08/03/19 documented as of this encounter
--- OUTSIDE RECORDS SUMMARY | 2024-07-11 22:37 | XMS_ITS | Encounter Summary ---
Author Organization [facility] Medical Group Address [address] [place] [address] Care Team Providers Care Saturator Name Role Phone Lalito England MD Primary Care Provider [phone] Reason for Visit * Reason Onset Date Comments Call Back 04/07/2023 Encounter Details Date Type Department Care Team (Late st Contact Info) Description 04/07/2023 Telephone [facility] [address] [place] [address] Lalito England MD [address] [place] [address] Call Back Social History Tobacco [...] file 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 She is wanting to make sure they are okay. Also, she states as soon as they get her ramp done at her house she may go home. She is asking if she can get some physical therapy for her legs. She thinks she should be able to go home in 2-3 weeks. She would like to get this therapy in before then. Please advise and thank you so much. Caller???s Call back #: [phone] Does message need to be routed? Yes-Action Needed * Telephone Encounter - Veronica Dobbs MA - 04/07/2023 8:58 AM CDT ----- Message from Lalito England MD sent at 04/06/2023 11:01 AM CDT ----- Ms. Ly, Thanks for compelting hte labwork. Will need to watch the blood sugars secondary to increased levels and 90 day average. Thanks! Lalito England MD documented in this encounter Plan of Treatment Not on file documented as of this encounter Visit Diagnoses Not on filedocumented in this encounter Care Teams Saturator Relationship Specialty Start Date End Date Lalito England MD [address] [place] [address] PCP - General 08/03/19 documented as of this encounter
--- OUTSIDE RECORDS SUMMARY | 2024-07-11 22:37 | XMS_ITS | Encounter Summary ---
Author Organization [facility] Medical Group Address [address] [place] [address] Care Team Providers Care Weatherization Technician Name Role Phone Lalito England MD Primary Care Provider [phone] [phone] Reason for Visit * Reason Onset Date Comments Medication Request 03/12/2023 Encounter Details Date Type Department Care Team (Late st Contact Info) Description 03/12/2023 Telephone [facility] [address] [place] [address] Lalito England MD [address] [place] [address] Medication Request Social History Tobacco [...] on file 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 Gender Identity Not on file Sexual Orientation Not on file documented as of this encounter Ordered Prescriptions Prescription Sig Dispense Quantity Refills Last Filled Start Date End Date HYDROcodone-acetam inophen (NORCO) 5-325 mg per tablet Take 1 tablet by mouth every 6 (six) hours as needed for pain 120 tablet 03/12/2023 04/21/2023 documented in this encounter Miscellaneous Notes * Telephone Encounter - Marylou Tovar MA - 03/12/2023 1:40 PM CDT Pt aware, and states she is seeing the eye doctor at 430 today for the blood vessel breaking, Thanks * Telephone Encounter - Marylou Tovar MA - 03/12/2023 11:32 AM CDT What do you recommend till her upcoming appt on 03/28 with you, Thanks * Telephone Encounter - Priya Kirk MA - 03/12/2023 11:11 AM CDT Medication Refill Patient's last Office/[facility] Visit: 10/23 Patient's next Office/[facility] Visit: 03/28 Medication(s) Name/Dose: pended Pharmacy (s) medication[facility] Caller's Callback #: [phone] Additional Comments: Patient is also wanted the doctor to know that she is taking her ozempic and her glipizide however, last night her glucose level was 466 so she took the rest of her Novolog she had so this morning it was 266. She is asking what she should do. She also mentioned a blood vessel breaking in her eye. She is going to call her eye doctor. CS will send over as HP due to patients glucose problems. Does message need to be routed? Yes-Action Needed documented in this encounter Plan of Treatment Not on file documented as of this encounter Visit Diagnoses Not on filedocumented in this encounter Discontinued Medications Medication Sig Discontinue Reason Start Date End Da te HYDROcodone-acetaminophe n (NORCO) 5-325 mg per tablet Take 1 tablet by mouth every 6 (six) hours as needed for pain Reorder 02/03/2023 03/12/2023 documented as of this encounter Care Teams Weatherization Technician Relationship Specialty Start Date End Date Lalito England MD [address] [place] [address] PCP - General 08/03/19 documented as of this encounter
--- OUTSIDE RECORDS SUMMARY | 2024-07-11 22:37 | XMS_ITS | Encounter Summary ---
Author Organization [facility] Medical Group Address [address] [place] [address] Care Team Providers Care Supervisor Glycerin Name Role Phone Lalito England MD Primary Care Provider [phone] [phone] Encounter Details Date Type Department Care Team (Late st Contact Info) Description 03/12/2023 Orders Only [facility] [address] [place] [address] Lalito England MD [address] [place] [address] Controlled type 2 diabetes mellitus with diabetic polyneuropathy, without long-term current use of insulin ([facility]/HCC) ([facility]) Social History Tobacco Use Types [...] on file 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 Gender Identity Not on file Sexual [...] a day before meals 84 mL 2 03/12/2023 04/11/2023 documented in this encounter Plan of Treatment Not on file documented as of this encounter Visit Diagnoses Diagnosis Controlled type 2 diabetes mellitus with diabetic polyneuropathy, without long- term current use of insulin (HCC) documented in this encounter Discontinued Medications Medication Sig Discontinue Reason Start Date End Da te NovoLOG 100 unit/mL (3 mL) pen for injectionIndications:Con trolled type 2 diabetes mellitus with diabetic polyneuropathy, without long-term current use of insulin (HCC) INJECT 32 UNITS UNDER THE SKIN 3 (THREE) TIMES A DAY BEFORE MEALS Reorder 09/11/2021 03/12/2023 documented as of this encounter Care Teams Supervisor Glycerin Relationship Specialty Start Date End Date Lalito England MD [address] [place] [address] PCP - General 08/03/19 documented as of this encounter
--- OUTSIDE RECORDS SUMMARY | 2024-07-11 22:37 | XMS_ITS | Encounter Summary ---
Author Organization [facility] Medical Group Address [address] [place] [address] Care Team Providers Care Children Teacher Name Role Phone Lalito England MD Primary Care Provider [phone] [phone] Reason for Visit * Reason Onset Date Comments Appointment Request 10/21/2022 Encounter Details Date Type Department Care Team (Late st Contact Info) Description 10/21/2022 Telephone [facility] [address] [place] [address] Lalito England MD [address] [address] Appointment Request Social History Tobacco [...] on file 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 Thanks! * Telephone Encounter - Daisy Lui - 10/21/2022 1:48 PM CDT Called patient to schedule, no appts would work with the bus this week. PT agreed to having you come to her apt on Friday in [facility] [address] she said you can drive around to her apartmentor go through the front door, whichever works * Telephone Encounter - Azra Roach MA - 10/21/2022 1:42 PM CDT Please get patient scheduled * Telephone Encounter - Azra Raoch MA - 10/21/2022 11:01 AM CDT Please advise. Patient is wanting the area to be looked at. No available openings and patient is currently in [facility]. * Telephone Encounter - Mandie Ignacio - 10/21/2022 10:46 AM CDT Appointment Request What visit type does the patient need? Visit Type: Established Patient What is the reason for the visit? Bumps with puss on back of both legs. What is the reason we were unable to schedule the appointment? Current appointment availability didnot meet patient's need. If applicable, were all members of the patient's PCP care team offered (e.g., nurse practioner(s), physician hotel assistant general manager(s)) ? Yes Caller's Callback #: [phone] Additional Comments: Patient called stating she is in a wheelchair ,have bump below the knee on back of both leg. A sore on buttocks that been bleeding need it check out emeka. Investigation Specialist clipped her toe nails looks like a sore on baby toe. Patient would like it to be look at. Patient is temporally [facility]. Does message need to be routed? Yes-Action Needed documented in this encounter Plan of Treatment Not on file documented as of this encounter Visit Diagnoses Not on filedocumented in this encounter Care Teams Children Teacher Relationship Specialty Start Date End [place] [address] PCP - General 08/03/19 documented as of this encounter
--- OUTSIDE RECORDS SUMMARY | 2024-07-11 22:37 | XMS_ITS | Encounter Summary ---
Author Organization [facility] Healthcare Address [address] [place] [address] Care Team Providers Care Noise Abatement Engineer Name Role Phone Lalito England MD Primary Care Provider [phone] [phone] Reason for Referral * Home Health (Routine) - Closed Specialty Diagnoses / Procedures Referred By Contac t Referred To Contact Home Health Services / Home Health and Hospice Diagnoses Unsteadiness on feet Other abnormalities of gait and mobility Repeated falls Other intervertebral disc degeneration, lumbar region Muscle weakness Lalito England MD [address] [place] [address] Phone: tel: fax: [facility] Care [facility] [address] [place] [address] Referral ID Status Reason Start Date Expiration Date V isits Requested Visits Authorized [id number] Closed Specialty Services Required 04/30/2023 05/29/2024 1 1 Question Answer [facility] Primary disciplines requested: Physical Therapy Secondary disciplines requested: Occupational Therapy Home Health Services Therapy to Eval/Tx Therapy instructions: Evaluation/treatment Requested Start of Care Date: 24-48 hours [...] face to face encounter occurred on (date): 03/28/2023 The encounter with the patient was in whole, or in part, for the following medical condition, which is the primary reason for home health care. (List medical condition): mobility challenges related to lumbar stensosis and neuropathy I certify that, based on my findings, the following services are medically necessary skilled home health services: Therapy to Eval/Tx Clinical findings that support the need for home care: Frequent falls requiring safety eval/therapy I certify that my clinical findings support patient's homebound status. Homebound criteria met because: Requires assistance of another to leave home safely, Abnormal gait/unsteady balance resulting in fall risk Reason for Visit * Reason Onset Date Comments Medical Question/Miscellaneous 04/25/2023 Encounter Details Date Type Department Care Team (Late st Contact Info) Description 04/25/2023 Telephone [facility] [address] [facility] [place] [address] Lalito England MD [address] [place] [address] Medical Question/Miscellaneous Social History Tobacco Use Types [...] in a retirement (including now)? 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 * Telephone Encounter - Stormy Benitez - 05/02/2023 9:41 AM CDT Referral faxed to [facility] * Telephone Encounter - Magui Greenwood - 05/02/2023 8:43 AM CDT Medical Question/Miscellaneous Caller???s Concern: Joselin negrete/ [facility] called in to report can't accept patient doesn't have the availability. Caller???s Call back #: [phone] Does message need to be routed? Yes-FYI Only * Telephone Encounter - Stormy Benitez - 05/01/2023 9:20 AM CDT Faxed referral to [facility] * Telephone Encounter - Lindy Andrea - 05/01/2023 9:05 AM CDT Medical Question/Miscellaneous Caller???s Concern: Kathie called stating they are unable to accept the patient due to them being atcapacity. Caller???s Call back #: [phone] Does message need to be routed? Yes-Action Needed * Telephone Encounter - Stormy Benitez - 04/30/2023 11:10 AM CDT Faxed to [facility] * Addendum Note - Stormy Benitez - 04/30/2023 10:50 AM CDTAddended by: STORMY BENITEZ on: 04/30/2023 10:50 AM Modules accepted: Orders * Telephone Encounter - Vielka Collins - 04/30/2023 10:36 AM CDT Call Back Caller???s Concern: [facility] declined referral due to staffing in the patient's location. Caller???s Call back #: na Does message need to be routed? Yes-Action Needed * Telephone Encounter - Stormy Benitez - 04/30/2023 9:34 AM CDT Referral sent to [facility] health * Addendum Note - Stormy Benitez - 04/30/2023 9:08 AM CDTAddended by: STORMY BENITEZ on: 04/30/2023 09:08 AM Modules accepted: Orders * Telephone Encounter - Stormy Benitez - 04/29/2023 1:32 PM CDT Patient states it would be hard for her to go to [facility] or anywhere else due to transportation issues.Patient is in a wheelchair and was told she will have to have somebody with her when they transporther. She does not have anyone to go with her for the multiple PT/OT appointments. Please advise * Telephone Encounter - Stormy Benitez - 04/29/2023 8:[address] England, Per Naomy Mccray at [facility] - referral to [facility] for PT/OT (15 visits each) denied. Request for ongoing [facility] [place]. Prior criteria approval while in long-term care. Now in assisted living faciliy level, so not homebound. Services available in network. Request denied. Glad to review for medical necessity if requested through a network provider. Please advise if you want to sent patient elsewhere for PT/OT or how you want to handle. ([facility] request and [facility] denial are in Media) * Telephone Encounter - Stormy Benitez - 04/28/2023 11:37 AM CDT Spoke to Naomy Rodriguez At [facility] regarding status of referral (adding 15 visits each for PT and OT). She stated we should have a response by the end of today or by tomorrow. * Telephone Encounter - Stormy Benitez - 04/25/2023 3:07 PM CDT LMOR - [facility] referral is still pending for review. Could take up to 72 hours before we get a response. Will check with [facility] again on Friday to see if decision has been made. * Telephone Encounter - Vielka Collins - 04/25/2023 2:53 PM CDT Medical Question/Miscellaneous Caller???s Concern: Naomy called to see if you received her request for an [facility] referral for PTand OT. Please advise. Caller???s Call back #: [phone] Does message need to be routed? Yes-Action Needed documented in this encounter Plan of Treatment Scheduled Referrals Name Type Priority Associated Diagnoses Orde r Schedule Ambulatory referral to Home Health Outpatient Referral Routine Unsteadiness on feet Other abnormalities of gait and mobility Repeated falls Other intervertebral disc degeneration, lumbar region Muscle weakness 1 Occurrences starting 04/30/2023 until 10/30/2023 documented as of this encounter Visit Diagnoses Diagnosis Unsteadiness on feet- Primary Other abnormalities of gait and mobility Repeated falls Other intervertebral disc degeneration, lumbar region Muscle weakness Muscle weakness (generalized) documented in this encounter Care Teams Noise Abatement Engineer Relationship Specialty Start Date End Date Lalito England MD [address] [place] [address] PCP - General 08/03/19 documented as of this encounter
--- OUTSIDE RECORDS SUMMARY | 2024-07-11 22:37 | XMS_ITS | Encounter Summary ---
Author Organization [facility] Medical Group Address 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 Gender Identity Not on file Sexual Orientation Not on file documented as of this encounter Plan of Treatment Not on file documented as of this encounter Procedures Procedure Name Priority Date/Time Associated Diagnosis Comments SCAN - RADIOLOGY/IMAGING 03/25/2022 documented in this encounter Results * SCAN - RADIOLOGY/IMAGING (03/25/2022) Anatomical Region Laterality Modality Other us Provider Scanning Final Result documented in this encounter Visit Diagnoses Not on filedocumented in this encounter Care Teams Scout Executive Relationship Specialty Start Date End Date Lalito England MD [address] [place] [address] PCP - General 08/03/19 documented as of this encounter
--- OUTSIDE RECORDS SUMMARY | 2024-07-11 22:37 | XMS_ITS | Encounter Summary ---
Author Organization [facility] Medical Group Address [address] [place] [address] Care Team Providers Care Office Mover Name Role Phone Lalito England MD Primary Care Provider [phone] [phone] Kassi Fontaine RN Unavailable [phone] Encounter Details Date Type Department Care Team (Late st Contact Info) Description 07/16/2022 Orders Only [facility] Accountable Care Organization [address] [place] [address] Provider, MD Sofiya [address] [place], [place] [id number] Social History Tobacco Use Types Packs/Day Years [...] staff should administer the PHQ-9) 0 11/27/2021 PRAPARE - Transportation Answer Date Re corded [...] on file 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 Gender Identity Not on file Sexual Orientation Not on file documented as of this encounter Plan of Treatment Not on file documented as of this encounter Procedures Procedure Name Priority Date/Time Associated Diagnosis Comments SNF DISCHARGE SUMMARY Routine 07/12/2022 documented in this encounter Results * SNF discharge summary (07/12/2022) us Historical Provider MD [facility]UN[facility] ORDERAB LES Final Result documented in this encounter Visit Diagnoses Not on filedocumented in this encounter Care Teams Office Mover Relationship Specialty Start Date End Date Lalito England MD [address] [place] [address] PCP - General 08/03/19 Kassi Fontaine RN [address] [place] [address] [address] [place] [address] Ceramic Mold Designer 07/16/22 08/11/22 documented as of this encounter
--- OUTSIDE RECORDS SUMMARY | 2024-07-11 22:37 | XMS_ITS | Encounter Summary ---
Author Organization [facility] Healthcare Address [address] [place] [address] Care Team Providers Care Silk Crepe Machine Operator Name Role Phone Lalito England MD Primary Care Provider [phone] Reason for Visit * Reason Onset Date Comments Med Refill 05/01/2023 Medication Request 05/01/2023 Encounter Details Date Type Department Care Team (Late st Contact Info) Description 05/01/2023 Telephone [facility] [address] [facility] [place] [address] Lalito England MD [address] [place] [address] Med Refill; Medication Request Social History Tobacco Use Types [...] on file 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 * Telephone Encounter - Veronica Dobbs MA - 05/02/2023 2:22 PM CDT Pt message sent to Dr England waiting on response/ * Telephone Encounter - Ludmila Chen - 05/02/2023 2:15 PM CDT Call Back Caller???s Concern: Patient following up with this message. She does her ozempic injection on Mondays Caller???s Call back #: [phone] Does message need to be routed? Yes-Action Needed * Telephone Encounter - Marylou Tovar MA - 05/01/2023 12:[address] England do you recommend pt continue the Ozempic and go up a dose, or what are your recommendations, Thanks * Telephone Encounter - Liz Field - 05/01/2023 11:53 AM CDT Medication Question/Clarification Medication Name(s): semaglutide (OZEMPIC) 1 mg/dose (4 mg/3 mL) pen injector injection What is the question or clarification needed? Patient stated she has been on this medication and itdoesn't seem to be helping her blood sugar. She is starting week 3 on dose level and wants to know should she stay on and and go to next level, please advise If needed, Pharmacy(s) medication(s) should be sent to: [facility] #[phone] Call Back #: [phone] Additional Comments: please give call back Does message need to be routed? Yes-Action Needed documented in this encounter Plan of Treatment Not on file documented as of this encounter Visit Diagnoses Not on filedocumented in this encounter Care Teams Silk Crepe Machine Operator Relationship Specialty Start Date End [place] [address] PCP - General 08/03/19 documented as of this encounter
--- OUTSIDE RECORDS SUMMARY | 2024-07-11 22:37 | XMS_ITS | Encounter Summary ---
Author Organization [facility] Address [address] [place] [address] Care Team Providers Care Legislative Correspondent Name Role Phone Lalito England MD Primary Care Provider [phone] Reason for Visit * Reason Onset Date Comments Medical Question/Miscellaneous 11/13/2022 Encounter Details Date Type Department Care Team (Late st Contact Info) Description 11/13/2022 Telephone [facility] [address] [place] [address] Lalito England MD [address] [place] [address] Medical Question/Miscellaneous Social History Tobacco [...] in a snf (including now)? 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 Caller???s Call back #: [phone] Does message need to be routed? Yes-FYI Only * Telephone Encounter - Stormy Ibrahim - 11/13/2022 1:22 PM CDT Received fax from [employer] ([facility]) requesting additional PT/OT visits be added to ref # [id number]. Start date 11/19/22 - 01/24/23. Spoke to Inocencia at [facility] Utilization & Management requesting additional visits and start/end dates. Per Inocencia request, faxed notes from [facility] to [facility] at fax# [phone] [facility] to review. Should know in about 10 days if approved. documented in this encounter Plan of Treatment Not on file documented as of this encounter Visit Diagnoses Not on filedocumented in this encounter Care Teams Legislative Correspondent Relationship Specialty Start Date End Date Lalito England MD [address] [place] [address] PCP - General 08/03/19 documented as of this encounter
--- OUTSIDE RECORDS SUMMARY | 2024-07-11 22:37 | XMS_ITS | Encounter Summary ---
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
--- OUTSIDE RECORDS SUMMARY | 2024-07-11 22:37 | XMS_ITS | Encounter Summary ---
Author Organization [facility] Address [address] [place] [address] Care Team Providers Care Smoking Pipe Mounter Name Role Phone Lalito England MD Primary Care Provider [phone] Reason for Visit * Reason Onset Date Comments Additional Services Or Orders 05/05/2023 Encounter Details Date Type Department Care Team (Late st Contact Info) Description 05/05/2023 Telephone [facility] [address] [place] [address] Lalito England MD [address] [place] [address] Additional Services Or Orders Social [...] on file 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 yes Reason for Request (e.g. condition/symptom, date of COVID exposure if applicable): Details Regarding Additional Services (e.g. type of home health, type of equipment, type of test, etc.): Where will services be performed? (if outside of the practice, facility name, address, phone/fax offacility): Caller's Callback #: [phone] ext [phone] Additional Comments: denlay start of care until 05/12 or until they receive auth Does message need to be routed? Yes-Action Needed documented in this encounter Plan of Treatment Not on file documented as of this encounter Visit Diagnoses Not on filedocumented in this encounter Care Teams Smoking Pipe Mounter Relationship Specialty Start Date End Date Lalito England MD [address] [place] [address] PCP - General 08/03/19 documented as of this encounter
--- OUTSIDE RECORDS SUMMARY | 2024-07-11 22:37 | XMS_ITS | Encounter Summary ---
Author Organization [facility] Address [address] [place] [address] Care Team Providers Care Front Loader Residential Driver Name Role Phone Lalito England MD Primary Care Provider [phone] Reason for Visit * Reason Onset Date Comments Medical Question/Miscellaneous 05/27/2022 Call Back 05/27/2022 Encounter Details Date Type Department Care Team (Late st Contact Info) Description 05/27/2022 Telephone [facility] [address] [place] [address] Lalito England MD [address] [place] [address] Medical Question/Miscellaneous ; Call Back Social History Tobacco Use Types [...] on file 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 Patient notified. Faxing again OF ACQUISITIONS * Telephone Encounter - Concepcion Tellez - 06/13/2022 3:34 PM CST Call Back Caller???s Concern: Patient sates they need these papers as soon as possible, they do not want to lose the room that [facility] is holding for them. They ask that someone call them as soon as the papers are ready so they may pick them up. Caller???s Call back #: [phone] Does message need to be routed? Yes-Action Needed OF ACQUISITIONS * Telephone Encounter - Rosalie Nation RN - 05/27/2022 2:04 PM CST Thank you! OF ACQUISITIONS * Telephone Encounter - Devi George MA - 05/27/2022 1:41 PM CST Spoke w pt and let her know that the paperwork is pending signature. Pt states that she would like to have complete paperwork completed sometime this week if possible. Let pt know we would contact her whenever it is completed OF ACQUISITIONS * Telephone Encounter - Rosalie Nation RN - 05/27/2022 1:28 PM CST Yes. Thanks, Devi! OF ACQUISITIONS * Telephone Encounter - Devi George MA - 05/27/2022 1:24 PM CST I dont see this scanned in. Still pending signature? OF ACQUISITIONS * Telephone Encounter - Lindy Andrea - 05/27/2022 1:21 PM CST Medical Question/Miscellaneous Caller???s Concern: Patient called to check if paperwork for [facility] in [place] was ready to bepicked up that was brought in on 05/23/22 Caller???s Call back #: [phone] Does message need to be routed?Yes-Action Needed OF ACQUISITIONS documented in this encounter Plan of Treatment Not on file documented as of this encounter Visit Diagnoses Not on filedocumented in this encounter Care Teams Front Loader Residential Driver Relationship Specialty Start Date End Date Lalito England MD [address] [place] [address] PCP - General 08/03/19 documented as of this encounter
--- OUTSIDE RECORDS SUMMARY | 2024-07-11 22:37 | XMS_ITS | Encounter Summary ---
Author Organization [facility] Address [address] [place] [address] Care Team Providers Care Machine Overhauler Name Role Phone Lalito England MD Primary Care Provider [phone] Reason for Visit * Reason Onset Date Comments Hyperglycemia 03/04/2023 Encounter Details Date Type Department Care Team (Late st Contact Info) Description 03/04/2023 Nurse Triage [facility] [address] [place] [address] Lalito England MD [address] [place] [address] Social History Tobacco Use Types [...] on file 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 Pt was under the impression that she would not need insulin since she is on Ozempic now. I explained that Ozempic will help control blood sugars but will still need insulin to help bring down elevated blood sugars. Pt states her BS is 334 right now. Pt stated she would take the Semglee later this evening but I advised her to go ahead and take it now since her BS is still rising. Pt asked if the Ozempic dose will increase to control her blood sugars? I advised that her medications should be re-evaluated in about 1 month to see how she is doing and if her BS become more regulated with weekly Ozempic and daily Semglee. Pt stated understanding. LUIS MIGUEL Carrillo * Telephone Encounter - Yola Oliver MA - 03/04/2023 4:[address] England, please advise. Thank you. * Telephone Encounter - Kalpana Chamberlain RN - 03/04/2023 11:50 AM CDT Criss Pitts is reporting elevated fasting glucose 252 today. She states she started Ozempic yesterday and glucose was 314 which she treated with Novolog. Criss Pitts states she didn't think she needed to continue Lantus and Novolog insulin once she started taking the Ozempic. Current DM medications: Ozempic 0.5 mg SC weekly Mondays first dose 03/03 Lantus 48 units SC daily - out of medication since Friday - no longer covered by insurance Novolog 32 units SC TID before meals - no longer covered by insurance Glipizide 2.5 mg daily with largest meal - no longer taking due to kidney issues Criss Pitts states that when she was in rehab facility she was prescribed Semglee 48 units daily, has supply of that at home but has not taken it as she wasn't sure if that replaced the Lantus insulin. Call placed to [facility] pharmacy to inquire which short acting insulin would be covered with her insurance. Per pharmacy, Humalog insulin is covered. Semglee is also covered under her insurance plan. Denies: frequent urination, blurred vision, vomiting, confusion, fever Disposition: see today in office. Criss Pitts is requesting further instruction on insulin use while taking Ozempic and new scripts for Semglee and Humalog to pharmacy. Routing to office for new scripts to pharmacy for Semglee and Humalog insulins and provide parameters for insulin coverage while on Ozempic. Please advise Marsha at [phone] of recommendation. Preferred Pharmacy [facility] [id number] [place] [address] [address] Allergies as of 03/04/2023 (No Known Allergies) Home care and call back instructions reviewed. Reason for Disposition Patient wants to be seen Protocols used: Diabetes - High Blood [id number] * Telephone Encounter - Kalpana Chamberlain RN - 03/04/2023 11:50 AM CDT Regarding: elevated blood sugar 252 (without eating) ----- Message from Ludmila Chen sent at 03/04/2023 11:45 AM CDT ----- Symptom Based Call Caller's Callback #: [phone] Chief Complaint(s): elevated blood sugar 252 (without eating) Duration: since yesterday What type of symptom(s) is the patient experiencing? Non-Emergent. Is this a new or reoccurring symptom(s)? New What have you tried to help your symptom(s)? Ozempic, took some additional insulin yesterday Why was appointment not scheduled? Requesting advice from clinical steam plant control room operator. Additional Comments: Patient started ozempic yesterday. Her blood sugar was 314 so she took novolog Does message need to be routed? Yes-Action Needed documented in this encounter Plan of Treatment Not on file documented as of this encounter Visit Diagnoses Not on filedocumented in this encounter Care Teams Machine Overhauler Relationship Specialty Start Date End Date Lalito England MD [address] [place] [address] PCP - General 08/03/19 documented as of this encounter
--- OUTSIDE RECORDS SUMMARY | 2024-07-11 22:37 | XMS_ITS | Encounter Summary ---
Author Organization [facility] Medical Group Address [address] [place] [address] Care Team Providers Care Bag Hanger Name Role Phone Tereso England MD Primary Care Provider [phone] Reason for Referral * Diagnostic Imaging (Routine) - Closed Specialty Diagnoses / Procedures Referred By Giuliana boone Referred To Contact Diagnoses Encounter for screening mammogram for malignant neoplasm of breast Procedures SCREENING MAMMOGRAM BILATERAL W Tereso Doshi MD [address] [place] [address] Phone: tel: fax: [address] [address] Referral ID Status Reason Start Date Expiration Date Visits Re quested Visits Authorized [id number] Closed 03/28/2023 04/26/2024 1 1 Reason for Visit * Reason Comments Diabetes F/u for Ozempic. Als o has a concern for a sore on her buttock x 4 months, painful to sit in certain positions Encounter Details Date Type Department Care Team (Latest Contact Info) Description 03/28/2023 2:00 PM CDT Office Visit [facility] [address] [place] [address] Tereso England MD [address] [place] [address] Influenza vaccination administered at current visit (Primary Dx); Encounter for screening mammogram for malignant neoplasm of breast; Colon cancer screening; Controlled type 2 diabetes mellitus with hyperglycemia, with long-term current use of insulin ([facility]) (HCC); Sacroiliitis, not elsewhere classified (HCC); 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 Gender Identity Not on file Sexual Orientation Not on file documented as of this encounter Last Filed Vital Signs Vital Sign Reading Time Taken Comments Blood Pressure 118/58 03/28/2023 2:03 PM CDT Pulse 78 03/28/2023 2:03 PM CDT Temperature 36.6 ??C (97.8 ??F) 03/28/2023 2 :03 PM CDT Respiratory Rate - - Oxygen Saturation 98% 03/28/2023 2:0 3 PM CDT Inhaled Oxygen Concentration - - Weight 98.9 kg (218 lb) 03/28/2023 2:03 PM CDT patient reported Height 165.1 cm (5' 5 ) 03/28/2023 2:03 PM CDT Body Mass Index 36.28 03/28/2023 2:03 PM CDT documented in this encounter Ordered Prescriptions Prescription Sig Dispense Quantity Refills Last Filled Start Date End Date semaglutide (OZEMPIC) 1 mg/dose (4 mg/3 mL) pen injector injection Inject 1 mg under the skin once a week 3 mL 2 03/28/2023 05/26/2023 documented in this encounter Progress Notes * Tereso England MD - 03/28/2023 2:00 PM CDT Images from the original note were not included. [facility] Criss Ly Chief Complaint. Chief Complaint Patient presents with Diabetes F/u for Ozempic. Also has a concern for a sore on her buttock x 4 months, painful to sit in certainpositions HPI. Patient is a 72 y.o. female Ms. Ly presents to clinic for f/u exam. She is looking forward to moving back home from [facility] in the near future. Aware it will be a lot of work but is workign hard in therapy and to improve mobility. Patient is noting wegiht loss and tolerance to ozempic and improving glycmeic control. No diarrhea,no dysuria, no f/c. Patient iwht mobility challenges related to lumbar stensosi and neuropathy. Patinet with right medial buttock irritation stage 2. Workign on increased mobility and will gama perez. Ms. Ly would benefit from a roho mattress and pad to offload pressure from the buttockand hips. Will continue to follow response. Diabetes She presents for her follow-up diabetic visit. She has type 2 diabetes mellitus. Her disease coursehas been stable. Hypoglycemia symptoms include mood changes and nervousness/anxiousness. Pertinent negatives for hypoglycemia include no dizziness, headaches or tremors. Associated symptoms include fatigue, foot paresthesias and weakness. Pertinent negatives for diabetes include no chest pain, no foot ulcerations and no visual change. Symptoms are stable. Diabetic complications include nephropathy. Pertinent negatives for diabetic complications include no CVA. Risk factors for coronary artery disease include diabetes mellitus, dyslipidemia, hypertension, obesity, post-menopausal, sedentary lifestyle and stress. Current diabetic treatment includes insulin injections. Hypertension This is a chronic problem. The current episode started more than 1 year ago. The problem has been waxing and waning since onset. The problem is controlled. Associated symptoms include malaise/fatigueand peripheral edema. Pertinent negatives include no anxiety, chest pain, headaches, neck pain, palpitations or shortness of breath. The current treatment provides moderate improvement. Compliance problems include diet and exercise. There is no history of CVA or heart failure. Identifiable causes of hypertension include chronic renal disease. Hyperlipidemia This is a chronic problem. The current episode started more than 1 year ago. The problem is controlled. Exacerbating diseases include chronic renal disease, diabetes, hypothyroidism and obesity. Associated symptoms include myalgias. Pertinent negatives include no chest pain or shortness of breath. Current antihyperlipidemic treatment includes statins. The current treatment provides moderate improvement of lipids. Risk factors for coronary artery disease include diabetes mellitus, dyslipidemia, hypertension, obesity, stress, a sedentary lifestyle and post-menopausal. 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 2007.; Comments: JamiaJC 07/25/2015 - HX OTHER MEDICAL Breast reduction 2008.; Comments: JJC 07/25/2015 - HX OTHER MEDICAL left hip and leg surgery HX OTHER MEDICAL conversion of previous hip arthroplasty left hip; Comments: [facility] TCU unit 02/06 - [...] 100 unit/mL (3 mL) pen for injection LANTUS 100 unit/mL (3 mL) pen for injection montelukast (SINGULAIR) 10 mg tablet naloxone (NARCAN) 4 mg/actuation spray,non-aerosol nystatin powder omeprazole (PriLOSEC) 20 mg capsule pen needle, diabetic (BD Ultra-Fine Mini Pen Needle) 31 gauge x 3/16 needle polyethylene glycol (MIRALAX) 17 gram/dose powder semaglutide 0.25 mg or 0.5 mg (2 mg/3 mL) pen injector injection simvastatin (ZOCOR) 40 mg tablet apixaban (ELIQUIS) 2.5 mg tablet gabapentin (NEURONTIN) 100 mg capsule lancets (MICROLET LANCET) misc semaglutide (OZEMPIC) 1 mg/dose (4 mg/3 mL) pen injector injection No Known Allergies Social History Tobacco Use [...] Systems: Review of Systems Constitutional: Positive for fatigue and malaise/fatigue. Negative for activity change and fever. HENT: Negative for postnasal drip and rhinorrhea. Respiratory: Negative for chest tightness, shortness of breath and wheezing. Cardiovascular: Negative for chest pain, palpitations and leg swelling. Gastrointestinal: Negative for abdominal pain, blood in stool, constipation, diarrhea, nausea and vomiting. Genitourinary: Negative for dysuria, hematuria and urgency. Musculoskeletal: Positive for arthralgias, gait problem and myalgias. Negative for back pain and neck pain. Skin: Negative for rash. Neurological: Positive for weakness. Negative for dizziness, tremors, light- headedness and headaches. Psychiatric/Behavioral: Positive for dysphoric mood. Negative for sleep disturbance and suicidal ideas. The patient is nervous/anxious. BP 118/58 (BP Location: Right arm, Patient Position: Sitting) Pulse 78 Temp 36.6 ??C (97.8 ??F)(Oral) Ht 165.1 cm (5' 5 ) Wt 98.9 kg (218 lb) Comment: patient reported SpO2 98% BMI 36.28kg/m?? Physical Exam: Physical Exam Vitals reviewed. Constitutional: [...] Diagnoses and all orders for this visit: Influenza vaccination administered at current visit (Primary) - Flu Vaccine Quad High Dose PF 65Y+ IM - Fluzone High Dose Quad Encounter for screening mammogram for malignant neoplasm of breast - SCREENING MAMMOGRAM BILATERAL W FADI; Future Colon cancer screening - Ambulatory referral to Gastroenterology; Future Controlled type 2 diabetes mellitus with hyperglycemia, with long-term current use of insulin (CMS/HCC) ([facility]) - Albumin Creatinine Ratio, Urine; Future - CBC with auto differential; Future - Comprehensive metabolic panel; Future - Hemoglobin A1c; Future - Lipid panel; Future Secondary prevnetion. No hypoglycmiec response and will montiroe rsponse. Sacroiliitis, not elsewhere classified (HCC) Reivewea dn will montior resopnse. 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 Contineu f/uw with cardiology and nephrrology. No increaed edema. Secondary hyperparathyroidism of renal origin ([facility]) As per renal. Other orders - semaglutide (OZEMPIC) 1 mg/dose (4 mg/3 mL) pen injector injection; Inject 1 mg under the skin once a week BMI Follow-up includes: nutrition counseling and exercise counseling. Body mass index is 36.28 kg/m??. Tereso England MD documented in this encounter Plan of Treatment Not on file documented as of this encounter Results * SCREENING MAMMOGRAM BILATERAL W FADI (05/23/2023 2:24 PM CYBER THREAT ANALYST) Anatomical Region Laterality Modality Breast Bilateral Mammography 05/23/2023 3:54 PM CYBER THREAT ANALYST Impressions 05/23/2023 3:54 PM CYBER THREAT ANALYST No mammographic evidence of malignancy (on limited assessment, see above). A 1 year screening mammogram is recommended. BI-RADS: 2 - Benign. The patient has been or will be contacted. The patient will be entered into a reminder system with a target due date of 1 year for her next mammogram. Electronically signed by: Salomon Max M.D. Narrative 05/23/2023 3:54 PM CYBER THREAT ANALYST EXAMINATION: SCREENING MAMMOGRAM BILATERAL W FADI ORDERING [...] suspicious finding in either breast on mammogram. us Tereso England MD IMG MAMMO PROCEDURES Jessica l Result * Lipid panel (03/28/2023 3:19 PM CDT) Cholesterol 135 30 - 199 mg/dL [facility] ([place]) Comment: Interpretive Data Ages < or [...] last revised on 2018. Testing performed by: [facility], [address] [place] [address]., [id number] Triglycerides 103 <=149 mg/dL ANN CUADRA ([place]) [...] last revised on 2018. Testing performed by: [facility], [address] [place] [address]., [id number] HDL 44 >=40 mg/dL ANN KOROMA) Comment: [...] last revised on 2018. Testing performed by: [facility], [address] [place] [address]., [id number] LDL, calculated 70 <=129 mg/dL ANN CUADRA ([place]) Comment: Interpretive [...] last revised on 2018. Testing performed by: [facility], [address] [place] [address]., [id number] Non-HDL Cholesterol 91 mg/dL ANN CUADRA ([place]) [...] last revised on 2018. Testing performed by: [facility], [address] [place] [address]., [id number] Chol/HDL ratio 3 CERNE Hilary CUADRA ([place]) Comment:Testing performed by : [facility], [address] [place] [address]., [id number] Blood 03/28/2023 3:19 PM CDT 03/28/2023 6:14 PM CDT Tereso England MD LAB BLOOD ORDERABLES Jessica l Result Performing Organization Address City/[facility] Co de Phone Number ANN CUADRA ([place]) 1 [facility] [place] [address] * (ABNORMAL) Hemoglobin A1c (03/28/2023 3:19 PM CDT) [facility] Hgb A1C 9.7(H) 4.0 - 5.6 % NAN CUADRA ([place]) Comment:Testing performed by : [facility], [address] [place] [address]., [id number] Estimated Average Glucose 232 mg/dL ANN CUADRA ([place]) Comment: The ADA recommends reporting an estimated Average Glucose (eAG) with all Hemoglobin A1c results using the equation derived from a study of 507 normal and diabetic adults. ??Minority populations were underrepresented and children were not included. ?? (Diabetes Care 31:1778-3110, 2008). ??The eAG is not equivalent to a fasting glucose. Testing performed by: [facility], [address] [place] [address]., [id number] Blood 03/28/2023 3:19 PM CDT 03/28/2023 6:14 PM CDT Tereso England MD LAB BLOOD ORDERABLES Jessica l Result Performing Organization Address City/[facility]/ZIP Co de Phone Number ANN CUADRA ([place]) [address] [place] [address] * (ABNORMAL) Comprehensive metabolic panel (03/28/2023 3:19 PM CDT) Sodium 137 135 - 145 mmol/L [facility] ([place]) Comment:Testing performed by : [address] [address] Potassium, pl 4.3 3.3 - 4.9 mmol/L [facility] ([place]) Comment:Testing performed by : [facility], [address] [place] [address]., [id number] Chloride 98 97 - 110 mmol/L [facility] ([place]) Comment:Testing performed by : [address] [address] CO2 28 22 - 32 mmol/L [facility] ([place]) Comment:Testing performed by : [address], [address] Anion gap 11 2 - 15 mmol/L [facility] ([place]) Comment:Testing performed by : [address] [address] BUN 31(H) 6 - 25 mg/dL [facility] ([place]) Comment:Testing performed by : [address] [address] Creatinine 1.59(H) 0.60 - 1.10 mg/dL [facility] ([place]) Comment:Testing performed by : [address] [address] Glucose 141 70 - 199 mg/dL CERNER [...] was last revised 2022. Testing performed by: [address], [address] Calcium 10.5(H) 8.5 - 10.3 mg/dL [facility] ([place]) Comment:Testing performed by : [facility], [address] [place] [address], [address] Bilirubin, total 0.4 0.1 - 1.2 mg/dL [facility] ([place]) Comment:Testing performed by : [address], [address] Protein, pl 7.4 6.5 - 8.5 g/dL [facility] ([place]) Comment:Testing performed by : [facility], [address] [place] [address], [address] Albumin 3.9 3.5 - 5.0 g/dL [facility] ([place]) Comment:Testing performed by : [address], [address] Alk phos 83 40 - 130 Units/L [facility] ([place]) Comment:Testing performed by : [address], [address] ALT 14 7 - 45 Units/L [facility] ([place]) Comment:Testing performed by : [address], [address] AST 19 10 - 45 Units/L [facility] ([place]) Comment:Testing performed by : [address], [address] Blood 03/28/2023 3:19 PM CDT 03/28/2023 6:14 PM CDT Tereso England MD LAB BLOOD ORDERABLES Jessica reynolds Result [facility] ([place]) 1 [facility] [place] [address] * (ABNORMAL) CBC with auto differential (03/28/2023 3:19 PM CDT) WBC 10.3(H) 3.8 - 9.9 K/cumm [facility] ([place]) Comment:Testing performed by : [address], [address] Hgb 9.8(L) 11.9 - 15.5 g/dL [facility] ([place]) Comment:Testing performed by : [address], [address] Hct 31.8(L) 35.6 - 45.5 % [facility] ([place]) Comment:Testing performed by : [address], [address] Plt 250 150 - 400 K/cumm [facility] ([place]) Comment:Testing performed by : [address], [address] MPV 9.9 9.1 - 12.3 fL [facility] ([place]) Comment:Testing performed by : [address], [address] RBC 3.82(L) 3.90 - 5.20 M/cumm [facility] ([place]) Comment:Testing performed by : [address], [address] MCV 83.2 81.3 - 96.4 fL [facility] ([place]) Comment:Testing performed by : [address], [address] MCH 25.7(L) 27.1 - 33.3 pg [facility] ([place]) Comment:Testing performed by : [address], [address] MCHC 30.8(L) 32.3 - 35.7 g/dL [facility] ([place]) Comment:Testing performed by : [address], [address] RDW CV 14.6 11.1 - 14.9 % [facility] ([place]) Comment:Testing performed by : [address], [address] RDW SD 43.8 35.7 - 48.1 fL [facility] ([place]) Comment:Testing performed by : [address], [address] NRBC abs 0.00 0.00 - 0.01 K/cumm [facility] ([place]) Comment:Testing performed by : [facility], [address], [place]., [address] Blood 03/28/2023 3:19 PM CDT 03/28/2023 6:14 PM CDT Tereso England MD LAB BLOOD ORDERABLES Jessica l Result ANN CUADRA ([place]) 1 [facility] [place] [address] * (ABNORMAL) Albumin Creatinine Ratio, Urine (03/28/2023 3:19 PM CDT) Albumin Ur 184.3 mg/L [facility] ([place]) Comment: Interpretive Data No reference range established. Current interpretive data was last revised 2018. Testing performed by: [address], [address] Creatinine Ur 85.5 mg/dL [facility] ([place]) Comment: Interpretive Data No reference range established. Current interpretive data was last revised 2018. Testing performed by: [facility], [address] [place] [address]., [id number] Albumin Creatinine Ratio, Ur 216(H) 1 - 29 mg/g [facility] ([place]) Comment:Testing performed by : [address] [address] Urine 03/28/2023 3:19 PM CDT 03/28/2023 6:14 PM CDT Tereso England MD LAB URINE ORDERABLES Jessica l Result ANN CUADRA ([place]) 1 [facility] [place] [address] documented in this encounter Visit Diagnoses Diagnosis Influenza vaccination administered at current visit- Primary Encounter for screening mammogram for malignant neoplasm of breast Colon cancer screening Special screening for malignant neoplasms, colon Controlled type 2 diabetes mellitus with hyperglycemia, with long-term current use of insulin (CMS/HCC) (HCC) Sacroiliitis, not elsewhere classified (HCC) Sacroiliitis, not elsewhere classified 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) (HCC) Unspecified hypertensive heart and kidney disease with heart failure and with chronic kidney disease stage I through stage IV, or unspecified Secondary hyperparathyroidism of renal origin (HCC) Secondary hyperparathyroidism (of renal origin) CKD (chronic kidney disease) stage 4, GFR 15-29 ml/min (CMS/HCC) (HCC) Chronic kidney disease, Stage IV (severe) BMI 36.0-36.9,adult Severe obesity (BMI 35.0-39.9) with comorbidity (HCC) Encounter for screening mammogram for malignant neoplasm of breast documented in this encounter Discontinued Medications Medication Sig Discontinue Reason Start Date End Da te glipiZIDE (GLUCOTROL) 5 mg tabletIndications:type 2 diabetes mellitus Take 0.5 tablets (2.5 mg total) by mouth daily as needed (with largest meal of the day) 07/05/2021 03/28/[address] (PROTONIX) 40 mg EC tabletIndications:Gastro esophageal reflux disease TAKE 1 TABLET BY MOUTH TWICE A DAY Therapy completed 12/05/2021 03/28/2023 methocarbamoL (ROBAXIN) 750 mg tablet Therapy completed 07/20/2022 03/28/2023 cyclobenzaprine (FLEXERIL) 10 mg tablet Take 1 tablet (10 mg total) by mouth nightly as needed for muscle spasms 01/25/2022 03/28/2023 documented as of this encounter Orders Immunization/Injection Count Last Ordered Date First Ordered Date FLU VACCINE HIGH DOSE QUAD P F 65Y+ IM - FLUZONE HIGH DOS 1 03/28/2023 documented in this encounter Care Teams Bag Hanger Relationship Specialty Start Date End Date Tereso England MD [address] [place] [address] PCP - General 08/03/19 documented as of this encounter
--- OUTSIDE RECORDS SUMMARY | 2024-07-11 22:37 | XMS_ITS | Encounter Summary ---
Author Organization [facility] Healthcare Address [address] [place] [address] Care Team Providers Care Steam Flattener Name Role Phone Lalito England MD Primary Care Provider [phone] Encounter Details Date Type Department Care Team (Late st Contact Info) Description 05/19/2023 12:55 PM ASSESSMENT NURSE PRACTITIONER Lab [facility] [address] [id number] Controlled type 2 diabetes mellitus with diabetic polyneuropathy, with long-term current use of insulin ([facility]/HCC) (FORMERLY [facility]) Social History Tobacco Use Types Packs/Day Years [...] on file Legal Sex Female 11:52 PM ASSESSMENT NURSE PRACTITIONER Gender Identity Not on file Sexual Orientation Not on file documented as of this encounter Plan of Treatment Not on file documented as of this encounter Procedures Procedure Name Priority Date/Time Associated Diagnosis Comments EGFR Routine 05/19/2023 10:55 AM ASSESSMENT NURSE PRACTITIONER Controlled type 2 diabetes mellitus with diabetic polyneuropathy, with long-term current use of insulin (CMS/HCC) (HCC) DIFFERENTIAL AUTO Routine 05/19/2023 10: 55 AM ASSESSMENT NURSE PRACTITIONER Controlled type 2 diabetes mellitus with diabetic polyneuropathy, with long-term current use of insulin (CMS/HCC) (HCC) CBC WITH AUTO DIFFERENTIAL Routine 05/19/2023 10:55 AM ASSESSMENT NURSE PRACTITIONER Controlled type 2 diabetes mellitus with diabetic polyneuropathy, with long-term current use of insulin (CMS/HCC) (HCC) HEMOGLOBIN A1C Routine 05/19/2023 10:55 AM ASSESSMENT NURSE PRACTITIONER Controlled type 2 diabetes mellitus with diabetic polyneuropathy, with long-term current use of insulin (CMS/HCC) (HCC) COMPREHENSIVE METABOLIC PANEL Routine 05/19/2023 10:55 AM ASSESSMENT NURSE PRACTITIONER Controlled type 2 diabetes mellitus with diabetic polyneuropathy, with long-term current use of insulin (CMS/HCC) (HCC) documented in this encounter Results * eGFR (05/19/2023 10:55 AM ASSESSMENT NURSE PRACTITIONER) eGFR 35 mL/min/1. 73 m2 [facility] ([place]) Comment: Interpretive Data Reference Interval Normal ?>/= [...] was last reviewed 2021. Testing performed by: [facility], [address] [place] [address], [place]., [address] Blood 05/19/2023 10:5 5 AM ASSESSMENT NURSE PRACTITIONER 05/19/2023 6:12 PM ASSESSMENT NURSE PRACTITIONER us Lalito England MD LAB BLOOD ORDERABLES Jessica reynolds Result [facility] ([place]) [address] [facility] Department of Laboratories [place], [place] [id number] * (ABNORMAL) Differential, auto (05/19/2023 10:55 AM ASSESSMENT NURSE PRACTITIONER) Neutrophil abs 7.6(H) 1.7 - 6.5 K/cumm [facility] ([place]) Comment:Testing performed by : [facility], [address] [place] [address]., [id number] Imm gran abs 0.0 0.0 - 0.1 K/cumm [facility] ([place]) Comment:Testing performed by : [facility], [address] [place] [address]., [id number] Lymphocyte abs 1.5 0.8 - 3.3 K/cumm [facility] ([place]) Comment:Testing performed by : [facility], [address] [place] [address]., [address] Monocyte abs 1.0(H) 0.2 - 0.8 K/cumm [facility] ([place]) Comment:Testing performed by : [facility], [address] [place] [address], [address] Eosinophil abs 0.2 0.0 - 0.5 K/cumm [facility] ([place]) Comment:Testing performed by : [facility], [address] [place] [address]., [address] Basophil abs 0.1 0.0 - 0.1 K/cumm [facility] ([place]) Comment:Testing performed by : [facility], [address] [place] [address]., [address] Neutrophil pct 72.8 % [facility] ([place]) Comment: Interpretive Data Percent cell count reference ranges are not reported, since discordance with absolute values may lead to misinterpretation of CBC data. Current Interpretive Data was last revised on 2017. Testing performed by: [address] [address] Imm gran pct 0.4 % [facility] ([place]) Comment: Interpretive Data Percent cell count reference ranges are not reported, since discordance with absolute values may lead to misinterpretation of CBC data. Current Interpretive Data was last revised on 2017. Testing performed by: [address] [address] Lymphocyte pct 14.8 % [facility] ([place]) Comment: Interpretive Data Percent cell count reference ranges are not reported, since discordance with absolute values may lead to misinterpretation of CBC data. Current Interpretive Data was last revised on 2017. Testing performed by: [address] [place]., [address] Monocyte pct 9.3 % [facility] ([place]) Comment: Interpretive Data Percent cell count reference ranges are not reported, since discordance with absolute values may lead to misinterpretation of CBC data. Current Interpretive Data was last revised on 2017. Testing performed by: [facility], [address] [place] [address]., [address] Eosinophil pct 2.0 % [facility] ([place]) Comment: Interpretive Data Percent cell count reference ranges are not reported, since discordance with absolute values may lead to misinterpretation of CBC data. Current Interpretive Data was last revised on 2017. Testing performed by: [facility], [address] [place] [address]., [address] Basophil pct 0.7 % [facility] ([place]) Comment: Interpretive Data Percent cell count reference ranges are not reported, since discordance with absolute values may lead to misinterpretation of CBC data. Current Interpretive Data was last revised on 2017. Testing performed by: [facility], [address] [place] [address]., [id number] Blood 05/19/2023 10:5 5 AM ASSESSMENT NURSE PRACTITIONER 05/19/2023 6:09 PM ASSESSMENT NURSE PRACTITIONER Lalito England MD LAB BLOOD ORDERABLES Jessica reynolds Result [facility] ([place]) [address] [facility] Department [place] [address] * (ABNORMAL) Hemoglobin A1c (05/19/2023 10:55 AM ASSESSMENT NURSE PRACTITIONER) Hgb A1C 9.8(H) 4.0 - 5.6 % [facility] ([place]) Comment:Testing performed by : [address] [address] Estimated Average Glucose 235 mg/dL [facility] ([place]) Comment: The ADA recommends reporting an estimated Average Glucose (eAG) with all Hemoglobin A1c results using the equation derived from a study of 507 normal and diabetic adults. ??Minority populations were underrepresented and children were not included. ?? (Diabetes Care 31:3962-7640, 2007). ??The eAG is not equivalent to a fasting glucose. Testing performed by: [facility], [address] [place] [address]., [address] Blood 05/19/2023 10:5 5 AM ASSESSMENT NURSE PRACTITIONER 05/19/2023 6:09 PM ASSESSMENT NURSE PRACTITIONER Lalito England MD LAB BLOOD ORDERABLES Jessica reynolds Result [facility] ([place]) [address] [facility] Department [place] [address] * (ABNORMAL) Comprehensive metabolic panel (05/19/2023 10:55 AM ASSESSMENT NURSE PRACTITIONER) Sodium 136 135 - 145 mmol/L [facility] ([place]) Comment:Testing performed by : [address] [address] Potassium, pl 4.3 3.3 - 4.9 mmol/L [facility] ([place]) Comment:Testing performed by : [facility], [address] [place] [address], [address] Chloride 95(L) 97 - 110 mmol/L [facility] ([place]) Comment:Testing performed by : [address], [address] CO2 27 22 - 32 mmol/L [facility] ([place]) Comment:Testing performed by : [address], [address] Anion gap 14 2 - 15 mmol/L [facility] ([place]) Comment:Testing performed by : [address] [address] BUN 25 6 - 25 mg/dL [facility] ([place]) Comment:Testing performed by : [address], [address] Creatinine 1.55(H) 0.60 - 1.10 mg/dL [facility] ([place]) Comment:Testing performed by : [address], [address] Glucose 165 70 - 199 mg/dL [facility] [...] was last revised 2022. Testing performed by: [facility], [address] [place] [address], [address] Calcium 10.0 8.5 - 10.3 mg/dL [facility] ([place]) Comment:Testing performed by : [address], [address] Bilirubin, total 0.4 0.1 - 1.2 mg/dL [facility] ([place]) Comment:Testing performed by : [address], [address] Protein, pl 7.3 6.5 - 8.5 g/dL [facility] ([place]) Comment:Testing performed by : [address], [address] Albumin 4.0 3.5 - 5.0 g/dL [facility] ([place]) Comment:Testing performed by : [address], [address] Alk phos 75 40 - 130 Units/L [facility] ([place]) Comment:Testing performed by : [address], [address] ALT 21 7 - 45 Units/L [facility] ([place]) Comment:Testing performed by : [address], [address] AST 31 10 - 45 Units/L [facility] ([place]) Comment:Testing performed by : [address], [address] Blood 05/19/2023 10:5 5 AM ASSESSMENT NURSE PRACTITIONER 05/19/2023 6:09 PM ASSESSMENT NURSE PRACTITIONER Lalito England MD LAB BLOOD ORDERABLES Jessica reynolds Result [facility] ([place]) [address] [facility] Department [place] [address] * (ABNORMAL) CBC with auto differential (05/19/2023 10:55 AM ASSESSMENT NURSE PRACTITIONER) WBC 10.4(H) 3.8 - 9.9 K/cumm [facility] ([place]) Comment:Testing performed by : [address] [address] Hgb 10.0(L) 11.9 - 15.5 g/dL [facility] ([place]) Comment: Interpretive Data A reference range for this assay has not been established for patients with an unknown legal sex. Please refer to the laboratory test catalog for established sex-specific reference intervals. Current interpretive data was last revised on 2023. Testing performed by: [address] [address] Hct 32.5(L) 35.6 - 45.5 % [facility] ([place]) Comment: Interpretive Data A reference range for this assay has not been established for patients with an unknown legal sex. Please refer to the laboratory test catalog for established sex-specific reference intervals. Current interpretive data was last revised on 2023. Testing performed by: [address] [address] Plt 243 150 - 400 K/cumm [facility] ([place]) Comment:Testing performed by : [address] [address] MPV 10.0 9.1 - 12.3 fL [facility] ([place]) Comment:Testing performed by : [address] [address] RBC 3.86(L) 3.90 - 5.20 M/cumm [facility] ([place]) Comment: Interpretive Data A reference range for this assay has not been established for patients with an unknown legal sex. Please refer to the laboratory test catalog for established sex-specific reference intervals. Current interpretive data was last revised on 2023. Testing performed by: [address], [address] MCV 84.2 81.3 - 96.4 fL [facility] ([place]) Comment:Testing performed by : [facility], [address] [place] [address], [address] MCH 25.9(L) 27.1 - 33.3 pg [facility] ([place]) Comment:Testing performed by : [facility], [address] [place] [address], [address] MCHC 30.8(L) 32.3 - 35.7 g/dL [facility] ([place]) Comment:Testing performed by : [facility], [address] [place] [address], [address] RDW CV 14.8 11.1 - 14.9 % [facility] ([place]) Comment:Testing performed by : [address], [address] RDW SD 45.1 35.7 - 48.1 fL [facility] ([place]) Comment:Testing performed by : [address], [address] NRBC abs 0.00 0.00 - 0.01 K/cumm [facility] ([place]) Comment:Testing performed by : [facility], [address] [place] [address], [address] Blood 05/19/2023 10:5 5 AM ASSESSMENT NURSE PRACTITIONER 05/19/2023 6:09 PM ASSESSMENT NURSE PRACTITIONER us Lalito England MD LAB BLOOD ORDERABLES Jessica l Result [facility] ([place]) [address] [facility] Department [place] [address] documented in this encounter Visit Diagnoses Diagnosis Controlled type 2 diabetes mellitus with diabetic polyneuropathy, with long-term current use of insulin (HCC) documented in this encounter Care Teams Steam Flattener Relationship Specialty Start Date End Date [place] [address] PCP - General 08/03/19 documented as of this encounter
--- OUTSIDE RECORDS SUMMARY | 2024-07-11 22:38 | XMS_ITS | Encounter Summary ---
Author Organization [facility] Address [address] [address] Care Team Providers Care Swamper Name Role Phone Lalito England MD Primary Care Provider [phone] [phone] Reason for Visit * Reason Comments Follow-up Pt is here to f/u on low blood pressure. She has been having dizzy spells. When she was at Dr. Caruso's office her blood pressure was 91/54 Encounter Details Date Type Department Care Team (Late st Contact Info) Description 11/27/2021 3:00 PM CDT Office Visit [facility] Primary Care at [address] [address] Lalito England MD [address] [place] [address] Hypertension associated with diabetes (HCC) (Primary Dx); Dizziness; Dyspnea on exertion ; Fatigue, unspecified type; CKD (chronic kidney disease) stage 4, GFR 15-29 ml/min (CMS/HCC) (HCC) Social History Tobacco Use Types Packs/Day Years Used Date Smoking Tobacco: Never Smokeless Tobacco: Never Alcohol Use Standard Drinks/Week Comments Yes 0 (1 standard drink = 0.6 oz pur e alcohol) occasional AUDIT-C Answer Date Recorded Q1: How often do you have a drink containing alc ohol? Monthly or less 10/20/2020 Q2: How many drinks containi ng alcohol do you have on a typical day when you are drinking? 1 or 2 10/20/2020 Q3: How often do you have si x or more drinks on one occasion? 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 Gender Identity Not on file Sexual Orientation Not on file documented as of this encounter Last Filed Vital Signs Vital Sign Reading Time Taken Comments Blood Pressure 124/72 11/27/2021 3:03 PM CDT Pulse 114 11/27/2021 3:03 PM CDT Temperature 36.9 ??C (98.4 ??F) 11/27/2021 3:03 PM CD T Respiratory Rate - - Oxygen Saturation 95% 11/27/2021 3:03 PM CDT Inhaled Oxygen Concentration - - Weight 104.4 kg (230 lb 3.2 oz) 11/27/2021 3:03 PM CDT Height 167.6 cm (5' 6 ) 11/27/2021 3:03 PM CDT Body Mass Index 37.16 11/27/2021 3:03 PM CDT documented in this encounter Progress Notes * Lalito England MD - 11/27/2021 3:00 PM CDT Images from the original note were not included. [facility] Chief Complaint. Chief Complaint Patient presents with ??? Follow-up Pt is here to f/u on low blood pressure. She has been having dizzy spells. When she was at Dr. Caruso's office her blood pressure was 91/54 HPI. Patient is a 71 y.o. female Ms. Ly presents to clinic. Patient with periods of hypotension. Reviewed medications that are contributing to low blood pressure and alternative treatmetn options. WIll continue to follow and montior repsoinse. Reveiwed hydration and will monitor reposnse. No orthopnea/no PND. WIll continue to follow. NO chest pains/pressures/palpitations. Diabetes She presents for her follow-up diabetic visit. She has type 2 diabetes mellitus. Her disease coursehas been stable. Pertinent negatives for hypoglycemia include no dizziness, headaches, nervousness/anxiousness or tremors. Associated symptoms include fatigue and foot paresthesias. Pertinent negatives for diabetes include no chest pain and no weakness. Symptoms are stable. Diabetic complications in clude nephropathy and peripheral neuropathy. Pertinent negatives for diabetic complications includeno CVA or heart disease. Risk factors for coronary artery disease include diabetes mellitus, dyslipidemia, hypertension, obesity, sedentary lifestyle, post-menopausal and stress. Current diabetic treatment includes insulin injections. She is compliant with treatment most of the time. Her weight is stable. She is following a diabetic and generally healthy diet. Meal planning includes avoidance of concentrated sweets. She has not had a previous visit with a dietitian. She participates in exerciseintermittently. Her home blood glucose trend is fluctuating minimally. An REYNALDO inhibitor/angiotensin II receptor moses is being taken. She does not see a furniture refinisher.Eye exam is not current. Past Medical History: Diagnosis Date ??? Benign hypertension with CKD (chronic kidney disease) stage III (HCC) ??? Gastroesophageal reflux disease GERD ??? HX OTHER MEDICAL PMO ??? HX OTHER MEDICAL INSURANCE VERIFY REP ??? HX OTHER MEDICAL [facility] OA ??? HX OTHER MEDICAL 2008 Discectomy, cervical ??? HX OTHER MEDICAL Fall ??? HX OTHER MEDICAL Left proximal femoral Gamma Nail fixation proximal; Comments: [facility] 07/25/2015 - ??? HX OTHER MEDICAL RTKR 2001.; Comments: [facility] 07/25/2015 - ??? HX OTHER MEDICAL LTKR 2006.; Comments: [facility] 07/25/2015 - ??? HX OTHER MEDICAL Back surgery 2007.; Comments: [facility] 07/25/2015 - ??? HX OTHER MEDICAL Cervical disc surg. 2008.; Comments: [facility] 07/25/2015 - ??? HX OTHER MEDICAL Breast reduction 2008.; Comments: [facility] 07/25/2015 - ??? HX OTHER MEDICAL left hip and leg surgery ??? HX OTHER MEDICAL conversion of previous hip arthroplasty left hip; Comments: [facility] TCU unit 02/06 - 02/17/16 for rehabilitation. ??? Hyperlipidemia Hyperlipidemia ??? Hypertension Hypertension ??? Osteoarthritis Osteoarthritis ??? Polyp of colon colon polyps ??? Sarcoidosis Sarcoidosis ??? Type 2 diabetes mellitus (HCC) Diabetes type 2 ??? Type 2 diabetes mellitus with diabetic autonomic (poly)neuropathy (HCC) ??? Type 2 diabetes mellitus with hyperglycemia (CMS/HCC) (HCC) ??? Type II diabetes mellitus with stage 3 chronic kidney disease (HCC) Past Surgical History: Procedure Laterality Date ??? COLONOSCOPY 09/15/2013 ??? JOINT REPLACEMENT ??? KNEE ARTHROPLASTY Knee replacement ??? LUMBAR SPINE SURGERY Surgery, lumbar spine ??? OTHER SURGICAL HISTORY 2004 L TKA ??? OTHER SURGICAL HISTORY 2001 R TKA ??? OTHER SURGICAL HISTORY 2006 back surgery - microdecompression Lumbar ??? OTHER SURGICAL HISTORY Fall: Medical Management ??? OTHER SURGICAL HISTORY 2015 conversion of previous hip arthroplasty left hip: Conversion of Arthroplasty left hip ??? REDUCTION MAMMAPLASTY Bilateral 2009 ??? TONSILLECTOMY tonsillectomy HOME MEDICATIONS : albuterol HFA (PROVENTIL HFA,VENTOLIN HFA) 90 mcg/actuation inhaler alendronate (FOSAMAX) 70 mg tablet aspirin 81 mg enteric coated tablet xgfxmhs-terblywylideu-cdsdpzsz (EXCEDRIN MIGRAINE) 250-250-65 mg per tablet blood glucose diagnostic (Contour Next Test Strips) strip blood-glucose meter (CONTOUR NEXT USB METER) misc calcium carbonate-vitamin D3 500 mg(1,250mg) -400 unit tablet cloNIDine (CATAPRES) 0.1 mg tablet cyclobenzaprine (FLEXERIL) 10 mg tablet fluticasone propionate (FLONASE) 50 mcg/actuation nasal spray furosemide (LASIX) 20 mg tablet gabapentin (NEURONTIN) 100 mg capsule glipiZIDE (GLUCOTROL) 5 mg tablet irbesartan-hydroCHLOROthiazide (AVALIDE) 300-12.5 mg per tablet lancets (MICROLET LANCET) misc LANTUS 100 unit/mL (3 mL) pen for injection montelukast (SINGULAIR) 10 mg tablet NovoLOG 100 unit/mL (3 mL) pen for injection pen needle, diabetic (BD Ultra-Fine Mini Pen Needle) 31 gauge x 3/16 needle simvastatin (ZOCOR) 40 mg tablet traMADol (ULTRAM) [address] (PROTONIX) 40 mg EC tablet Allergies Allergen Reactions ??? Hydrocodone Other (See comments) Reaction: migraines, , , can take tylenol Social History Tobacco Use ??? Smoking status: Never Smoker ??? Smokeless tobacco: Never Used Substance Use Topics ??? Alcohol use: Yes Comment: occasional Family History Problem Relation Age of Onset ??? Heart disease Father Heart disease; ??? Heart failure Father CHF; Cause of : CHF ??? Colon cancer Father ??? Diabetes Mother Diabetes mellitus; ??? Hypertension Mother Hypertension; ??? Diabetes Brother Diabetes mellitus; ??? Cancer Brother ??? Lymphoma Brother Cancer -lymphoma; ??? Stroke Brother ??? Hypertension Brother Review of Systems: Review of Systems Constitutional: Positive for fatigue. Negative for activity change and fever. HENT: Negative for postnasal drip and rhinorrhea. Respiratory: Negative for chest tightness, shortness of breath and wheezing. Cardiovascular: Negative for chest pain and leg swelling. Gastrointestinal: Negative for abdominal pain, blood in stool, constipation, diarrhea, nausea and vomiting. Endocrine: Negative for cold intolerance and heat intolerance. Genitourinary: Negative for dysuria, hematuria and urgency. Musculoskeletal: Positive for arthralgias. Negative for back pain, myalgias and neck pain. Skin: Negative for rash. Neurological: Negative for dizziness, tremors, weakness, light-headedness and headaches. Hematological: Negative for adenopathy. Psychiatric/Behavioral: Negative for dysphoric mood, sleep disturbance and suicidal ideas. The patient is not nervous/anxious. BP 124/72 (BP Location: Left arm, Patient Position: Sitting) Pulse 114 Temp 36.9 ??C (98.4 ??F)(Oral) Ht 167.6 cm (5' 6 ) Wt 104.4 kg (230 lb 3.2 oz) SpO2 95% BMI 37.16 kg/m?? Physical Exam: Physical Exam Vitals reviewed. [...] and oriented to person, place, and time. Gait: Gait abnormal. Psychiatric: Thought Content: Thought content normal. Assessment & Plan: Diagnoses and all orders for this visit: Hypertension associated with diabetes (HCC) (Primary) Dizziness - Pro B-type natriuretic peptide; Future - Renal function panel; Future - Transthoracic Echo Complete W Doppler/CF; Future Reviewed differntial and will continue to follow repsonse. NO change at the present time. IWll continue to follow. Dyspnea on exertion - Transthoracic Echo Complete W Doppler/CF; Future - CBC with auto differential; Future Fatigue, unspecified type - TSH; Future Most likely multifactorial. Continue f/u with Nephraoloxy. CKD (chronic kidney disease) stage 4, GFR 15-29 ml/min (CMS/HCC) (HCC) As above. BMI Follow-up includes: nutrition counseling. Body mass index is 37.16 kg/m??. Lalito England MD documented in this encounter Plan of Treatment Not on file documented as of this encounter Results * TSH (11/27/2021 4:04 PM CDT) Thyroid Stimulating Hormone 2.10 0.30 - 4.20 mcIUnit/mL [facility] Blood 11/27/2021 4:04 PM CDT 11/27/2021 9:44 PM CDT us Lalito England MD LAB BLOOD ORDERABLES Jessica l Result ANN [id number] [place] [address] * (ABNORMAL) CBC with auto differential (11/27/2021 4:04 PM CDT) WBC 12.1(H) 3.8 - 9.9 K/cumm [facility] Hgb 12.1 11.9 - 15.5 g/dL [facility] Hct 38.7 35.6 - 45.5 % [facility] Plt 242 150 - 400 K/cumm [facility] MPV 9.9 9.1 - 12.3 fL [facility] RBC 4.30 3.90 - 5.20 M/cumm [facility] CH MCV 90.0 81.3 - 96.4 fL [facility] MCH 28.1 27.1 - 33.3 pg [facility] MCHC 31.3(L) 32.3 - 35.7 g/dL [facility] CH RDW CV 18.0(H) 11.1 - 14.9 % [facility] CH RDW SD 58.1(H) 35.7 - 48.1 fL [facility] NRBC abs 0.00 0.00 - 0.01 K/cumm [facility] Blood 11/27/2021 4:04 PM CDT 11/27/2021 9:44 PM CDT us Lalito England MD LAB BLOOD ORDERABLES Jessica l Result [facility] [id number] Department [place] [address] * (ABNORMAL) Renal function panel (11/27/2021 4:04 PM CDT) Sodium 136 135 - 145 mmol/L [facility] Potassium, pl 4.7 3.3 - 4.9 mmol/L [facility] Chloride 102 97 - 110 mmol/L [facility] CO2 20(L) 22 - 32 mmol/L [facility] CH Anion gap 14 2 - 15 mmol/L [facility] BUN 50(H) 8 - 25 mg/dL [facility] Creatinine 2.66(H) 0.60 - 1.10 mg/dL [facility] Glucose 135 70 - 199 mg/dL [facility] Comment: Interpretive Data Fasting glucose >/= 126 [...] Current interpretive data was last revised 2017. Calcium 10.0 8.5 - 10.3 mg/dL ANN Phosphorus, pl 3.4 2.3 - 4.5 mg/dL [facility] Albumin 3.5 3.5 - 5.0 g/dL ANN Blood 11/27/2021 4:04 PM CDT 11/27/2021 9:44 PM CDT us Lalito England MD LAB BLOOD ORDERABLES Jessica reynolds Result [facility] [id number] [place] [address] * Pro B-type natriuretic peptide (11/27/2021 4:04 PM CDT) NT-proBNP 289 <=300 pg/mL ANN Comment: Interpretive Comments: A. Dyspnea in Acute Care Setting All Ages: ?< 300 pg/ml, acute heart failure unlikely. < 50 yrs: ?300 - 450 pg/ml, further investigation warranted. ? > 450 pg/ml, acute heart failure likely. 50 - 74 yrs: ? 300 - 900 pg/ml, further investigation warranted. ? > 900 pg/ml, acute heart failure likely . > or = 75 yrs: ? 450 - 1800 pg/ml, further investigation warranted. ? > 1800 pg/ml, acute heart failure likely. B. Non-acute Setting < 75 yrs ? < 125 pg/ml, rules out heart failure. ? > or = 125 pg/ml, further investigation warranted. > or = 75 yrs ?< 450 pg/ml, rules out heart failure. ? > or = 450 pg/ml, further investigation warranted. - Knowledge of each individual patient's NT-proBNP range may be more useful than using similar cut-points for every patient. Please note that marked elevations in NT-proBNP levels may be observed in state other than Left Ventricular Congestive Failure, including: acute coronary syndromes, right heart strain/failure (including pulmonary embolism and cor pulmonale), critical illness, renal failure, as well as advanced age. - References: 1. Namita RICE et.al. Eur Heart J. 2006:27:330-337. 2. Jered LYON, Carlos DIEGO. J. AM Adia Cardiol: Cardiovasc Imag. 2009;2: 216- 225. Interpretive Data Last Revised Date: 2018. Blood 11/27/2021 4:04 PM CDT 11/27/2021 9:44 PM CDT Lalito England MD LAB BLOOD ORDERABLES Jessica l Result ANN [address] Department of Laboratories [place] [id number] documented in this encounter Visit Diagnoses Diagnosis Hypertension associated with diabetes (HCC)- Primary Unspecified essential hypertension Dizziness Dizziness and giddiness Dyspnea on exertion Other dyspnea and respiratory abnormality Fatigue, unspecified type CKD (chronic kidney disease) stage 4, GFR 15-29 ml/min ([facility]) (HCC) Chronic kidney disease, Stage IV (severe) documented in this encounter Discontinued Medications Medication Sig Discontinue Reason Start Date End Da te amLODIPine (NORVASC) 5 mg tabletIndications:Hypert ension associated with type 2 diabetes mellitus (HCC) TAKE 1 TABLET BY MOUTH EVERY DAY Therapy completed 08/06/2021 11/27/2021 documented as of this encounter Care Teams Swamper Relationship Specialty Start Date End Date Lalito England MD [address] [place] [address] PCP - General 08/03/19 documented as of this encounter
--- OUTSIDE RECORDS SUMMARY | 2024-07-11 22:38 | XMS_ITS | Encounter Summary ---
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 After waiting on hold for 4 minutes, sent message for follow up. Caller???s Call back #: [phone] Does message need to be routed? Yes-Action Needed * Telephone Encounter - Vielka Alexander MA - 02/15/2022 12:09 PM CDT Tried to call patient to explain to her letter was faxed to her surgeon on February 07 she needs to to get clearance from her Wheelage Clerk * Telephone Encounter - Graciela Stacy - 02/14/2022 3:19 PM CDT Call Back Caller???s Concern: Patient called to check on the status of previous message, wants to know if shecan obtain medical clearance from Dr. England to have back micro-decompression. She is schedule to see Dr. Block on 02/26/22. Please advise Caller???s Call back #: [phone] Does message need to be routed? Yes-Action Needed * Telephone Encounter - Rosalie Nation RN - 02/06/2022 2:33 PM CDT Received call from patient stating she saw neurosurgeon yesterday and he is supposed to be sending paperwork to our office. Informed patient a surgical clearance request form was received today, but she states the information she's speaking of us was to be emailed from the neurosurgeon to Dr. England. FYI Dr. England documented in this encounter Plan of Treatment Not on file documented as of this encounter Visit Diagnoses Not on filedocumented in this encounter Care Teams Accredited Pharmacy Technician Relationship Specialty Start Date End Date Lalito England MD [address] [place] [address] PCP - General 08/03/19 documented as of this encounter
--- OUTSIDE RECORDS SUMMARY | 2024-07-11 22:38 | XMS_ITS | Encounter Summary ---
Author Organization [facility] Address [address] [place] [address] Care Team Providers Care Oyster Planter Name Role Phone Lalito England MD Primary Care Provider [phone] [phone] Reason for Visit * Reason Onset Date Comments Medical Records Request 02/22/2022 Encounter Details Date Type Department Care Team (Late st Contact Info) Description 02/22/2022 Telephone [facility] [address] [place] [address] Lalito England MD [address] [place] [address] Medical Records Request Social History Tobacco Use Types Packs/Day [...] on file 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 Faxed to Dr. Hernandez * Telephone Encounter - Concepcion Tellez - 02/22/2022 2:52 PM CDT Medical Records Request Request Type: Records Request Practice Will Complete What records are being requested:resutls from bone density test from 05/23/2021. Who will the records be sent to (if being sent to another doctor, list the doctor's name and specialty)? Dr. Vikas Vallejo Date Needed: As soon as possible Delivery Method: Fax Fax number to use for return of records: [phone] Caller???s Callback #: [phone] Additional Comments/Concerns: Patient has an appt coming up with Dr Hernandez on 02/26/2022 andwould like this sent before then. Does the message need to be routed? Yes-Action Needed documented in this encounter Plan of Treatment Not on file documented as of this encounter Visit Diagnoses Not on filedocumented in this encounter Care Teams Oyster Planter Relationship Specialty Start Date End Date [place] [address] PCP - General 08/03/19 documented as of this encounter
--- OUTSIDE RECORDS SUMMARY | 2024-07-11 22:38 | XMS_ITS | Encounter Summary ---
Author Organization [facility] Address [address] [place] [address] Care Team Providers Care Kiln Head House Operator Name Role Phone Lalito England MD Primary Care Provider [phone] Reason for Visit * Reason Comments Diabetes Encounter Details Date Type Department Care Team (Late st Contact Info) Description 12/17/2021 ACO Quality [facility] Accountable Care Organization [address] [place] [id number] Amanda Farah MA [address] [facility] [address] [place] [address] Hypertension associated with diabetes (HCC) (Primary Dx) Social History Tobacco Use [...] file 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 This patient was included in this measure due to a diagnosis of type 1 or 2 diabetes. To close this measure, a collection of a eGFR and an uACR can be accepted. An order has been placed for patient's future appointment. ERICA Hartley Patient Outreach Horticulture Supervisor [facility] documented in this encounter Plan of Treatment Not on file documented as of this encounter Visit Diagnoses Diagnosis Hypertension associated with diabetes (HCC)- Primary Unspecified essential hypertension documented in this encounter Care Teams Kiln Head House Operator Relationship Specialty Start Date End Date Lalito England MD [address] [place] [address] PCP - General 08/03/19 documented as of this encounter
--- OUTSIDE RECORDS SUMMARY | 2024-07-11 22:38 | XMS_ITS | Encounter Summary ---
Author Organization [facility] Address [address] [place] [address] Care Team Providers Care Butcher'S Assistant Name Role Phone Lalito England MD Primary Care Provider [phone] Chante Leon [facility] Unavailable [phone] Reason for Visit * Reason Comments Fall Encounter Details Date Type Department Care Team (Latest Contact Info) Description 01/16/2022 11:46 AM CDT - 01/18/2022 5:10 PM CDT Hospital Encounter [facility] [address] [facility] [place] [address] Julita Lizarraga MD [address] [facility] [place] [address] Lili Lujan MD [address] [place] [id number] Meng Lake MD [address] [place] [address] Funmilayo Jin DO [address] [facility] [address] [place] [address] Weakness of both lower extremities (Primary Dx); Low back pain, unspecified back pain laterality, unspecified chronicity, unspecified whether sciatica present Discharge Disposition: Discharge to an Rehab facility Social History Tobacco Use Types [...] on file 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 Gender Identity Not on file Sexual Orientation Not on file documented as of this encounter Last Filed Vital Signs Vital Sign Reading Time Taken Comments Blood Pressure 126/65 01/18/2022 11:00 AM CDT Pulse 70 01/18/2022 11:00 AM CDT Temperature 36.1 ??C (97 ??F) 01/18/2022 11: 00 AM CDT Respiratory Rate 18 01/18/2022 11:0 0 AM CDT Oxygen Saturation 98% 01/18/2022 11: 00 AM CDT Inhaled Oxygen Concentration - - Weight 103.1 kg (227 lb 4.7 oz) 01/16/2022 4:29 PM CDT Height 167.6 cm (5' 6 ) 01/16/2022 4:29 PM CDT Body Mass Index 36.69 01/16/2022 4:29 PM CDT documented in this encounter Discharge Diagnoses Diagnosis Weakness - WEAKNESS Other malaise and fatigue Hypertensive chronic kidney disease with stage 1 through stage 4 chronic kidney disease, or unspecified chronic kidney disease - HYPERTENSIVE CHRONIC KIDNEY DISEASE WITH STAGE 1 THROUGH STAGE 4 CHRONIC KIDNEY DISEASE, OR UNSPECIF Type 2 diabetes mellitus with diabetic chronic kidney disease (HCC) - TYPE 2 DIABETES MELLITUS WITH DIABETIC CHRONIC KIDNEY DISEASE Chronic kidney disease, stage 4 (severe) (HCC) - CHRONIC KIDNEY DISEASE, STAGE 4 (SEVERE) Type 2 diabetes mellitus with diabetic polyneuropathy (HCC) - TYPE 2 DIABETES MELLITUS WITH DIABETIC POLYNEUROPATHY Acute kidney failure, unspecified (HCC) - ACUTE KIDNEY FAILURE, UNSPECIFIED Acute kidney failure, unspecified Spondylosis without myelopathy or radiculopathy, lumbar region - SPONDYLOSIS WITHOUT MYELOPATHY OR RADICULOPATHY, LUMBAR REGION Spondylosis without myelopathy or radiculopathy, thoracic region - SPONDYLOSIS WITHOUT MYELOPATHY OR RADICULOPATHY, THORACIC REGION Gastro-esophageal reflux disease without esophagitis - GASTRO-ESOPHAGEAL REFLUX DISEASE WITHOUT ESOPHAGITIS Spinal stenosis, cervical region - SPINAL STENOSIS, CERVICAL REGION Spinal stenosis, lumbar region without neurogenic claudication - SPINAL STENOSIS, LUMBAR REGION WITHOUT NEUROGENIC CLAUDICATION Sarcoidosis, unspecified - SARCOIDOSIS, UNSPECIFIED 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 bisphosphonates - CASHIER AND WAITER/WAITRESS (CURRENT) USE OF BISPHOSPHONATES 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 oral hypoglycemic drugs - CASHIER AND WAITER/WAITRESS (CURRENT) USE OF ORAL HYPOGLYCEMIC DRUGS [facility] (current) use of aspirin - RETIREMENT (CURRENT) USE OF ASPIRIN [facility] (current) use of insulin (HCC) - CASHIER AND WAITER/WAITRESS (CURRENT) USE OF INSULIN Contact with and (suspected) exposure to covid-19 - CONTACT WITH AND (SUSPECTED) EXPOSURE TO COVID-19 documented in this encounter Discharge Summaries * Meng Lake MD - 01/18/2022 5:07 PM CDT Inpatient Discharge Summary BRIEF OVERVIEW Admitting Provider: Lili Lujan MD Discharge Provider: Meng Lake MD Primary Care Physician at Discharge: Lalito England MD [phone] Admission Date: 01/16/2022 Discharge Date: 01/18/2022 Admission Location: [facility] Problems/Diagnoses: Principal Problem: Weakness of both lower extremities Active Problems: CKD (chronic kidney disease) stage 4, GFR 15-29 ml/min ([facility] ([facility]) Type 2 diabetes mellitus with diabetic neuropathy, with long-term current use of insulin ([facility] ([facility]) Chronic back pain Resolved Problems: No resolved hospital problems. DETAILS OF HOSPITAL STAY Presenting Problem/History of Present Illness: Acute on chronic back pain with gradual bilateral lower extremity weakness Hospital Course: Patient is a 71-year-old female with history of diabetes, chronic low back pain, cervical diskectomy and lumbar laminectomy, CKD stage 3 admitted to the hospital with acute on chronic low back pain along with gradual worsening bilateral lower extremity weakness. Patient was seen by Neurology, Nephrology. Neurology recommended MRI of the cervical spine which showed high-grade spinal stenosis with cord impingement at C7-T1 level. These findings were discussed with spine diffusion furnace operator by Dr. Jin. Per documentation regarding the conversation, patient with delayed surgery but emergent need for transfer, patient can follow-up with her surgeon as outpatient. Meanwhile patient wanted to discharge toinpatient rehab for further care. Repeat COVID test negative. Patient discharged to inpatient rehab in fair condition time spent more than 35 minutes. Discharge Details Physical Exam at Discharge: Discharge Condition: fair Pulse: 70 Resp: 18 BP: 126/65 Temp: 36.1 ??C (97 ??F) Weight: 103.1 kg (227 lb 4.7 oz) Pertinent Exam Findings at Discharge: Constitutional: general appearance alert, cooperative, no distress, oriented to person, place, and time, well appearing Eyes: sclera and conjunctiva clear, EOMI and PERRLA, lids normal Head: normocephalic, without trauma Nose: nares open; no septal deviation is noted Throat: no mucous membrane abnormalities Neck: No JVD, no palpable lymph nodes, range of motion is intact, no masses, thyroid not enlarged, no adenopathy, no carotid bruit Pulmonary: Lungs clear to auscultation bilaterally, no rales or wheezes CV: heart regular rhythm, normal S1 and S2, without murmurs, gallops or rubs GI: abdomen soft without mass, non-tender, with normal bowel sounds Musculoskeletal/extremities: no clubbing, cyanosis. Pitting bilateral LE edema. No tenderness to palpation. Skin: warm, dry, no rashes or lesions Neurologic: mental status normal; alert and oriented X 3; cranial nerves II - XII are grossly intact. Decreased strength 3/5 R and 4/5 L plantar flexion. Sensation intact to light touch. Psych: appropriate mood and affect Discharge Disposition: IPR at the [facility] Code Status at Discharge: Full Discharge Instructions: F.u with PCP, RENEE as scheduled as outpatient Discharge Medications: Current Medications TAKE these medications albuterol HFA 90 mcg/actuation inhaler Inhale 2 puffs every 6 (six) hours as needed for wheezing. Commonly known as: PROVENTIL HFA,VENTOLIN HFA,PROAIR HFA alendronate 70 mg tablet TAKE 1 TABLET BY MOUTH ONE TIME PER WEEK Commonly known as: FOSAMAX aspirin 81 mg enteric coated tablet Take 81 mg by mouth daily For: prevention of thrombosis calcium carbonate-vitamin D3 1,250 mg (500 mg elemental)-400 unit tablet Take one by mouth two times per day cloNIDine 0.1 mg tablet TAKE 1/2 TABLET BY MOUTH TWO TIMES A DAY Commonly known as: CATAPRES Contour Next Test Strips strip Test blood sugar 3 times a day and will montior response. Dx: E11.22. Generic drug: blood glucose diagnostic Contour Next USB Meter misc test as directed Generic drug: blood-glucose meter cyclobenzaprine 10 mg tablet Take 1 tablet (10 mg total) by mouth nightly as needed for muscle spasms Commonly known as: FLEXERIL fluticasone propionate 50 mcg/actuation nasal spray SPRAY 2 SPRAYS INTO EACH NOSTRIL EVERY DAY Commonly known as: FLONASE furosemide 20 mg tablet TAKE 1 TABLET BY MOUTH EVERY DAY Commonly known as: LASIX gabapentin 100 mg capsule Take 1 capsule (100 mg total) by mouth 3 (three) times a day Commonly known as: NEURONTIN glipiZIDE 5 mg tablet Take 0.5 tablets (2.5 mg total) by mouth daily as needed (with largest meal of the day) For: type 2 diabetes mellitus Commonly known as: GLUCOTROL HYDROcodone-acetaminophen 5-325 mg per tablet Take 1 tablet by mouth 3 (three) times a day as needed for pain For: pain Commonly known as: NORCO LANTUS 100 unit/mL (3 mL) pen for injection INJECT 48 UNITS SUBCUTANEOUSLY DAILY Generic drug: insulin glargine Microlet Lancet misc test by fingerstick route 3 times daily Generic drug: lancets montelukast 10 mg tablet TAKE 1 TABLET BY MOUTH EVERYDAY AT BEDTIME Commonly known as: SINGULAIR naloxone 4 mg/actuation spray,non-aerosol Administer 1 spray into affected nostril(s) as needed for opioid reversal Commonly known as: NARCAN NovoLOG 100 unit/mL (3 mL) pen for injection INJECT 32 UNITS UNDER THE SKIN 3 (THREE) TIMES A DAY BEFORE MEALS Generic drug: insulin aspart pantoprazole DR 40 mg EC tablet TAKE 1 TABLET BY MOUTH TWICE A DAY Commonly known as: PROTONIX pen needle, diabetic 31 gauge x 3/16 needle 1 needle as directed Commonly known as: BD Ultra-Fine Mini Pen Needle simvastatin 40 mg tablet TAKE 1 TABLET BY MOUTH EVERY DAY AT NIGHT Commonly known as: ZOCOR Outpatient Follow-Up: Future Appointments Date Time Provider Department Center 02/20/2022 2:00 PM David Caruso MD [facility] 02/25/2022 3:15 PM Lalito England MD [place] [facility] 06/05/2022 2:00 PM Lalito England MD [facility] Contact Information for Follow-ups Lalito England MD Specialty: Family Medicine Relationship: PCP - General [address] [place] [address] Next Steps: Follow up in 1 week(s) neurosurgery Next Steps: Schedule an appointment as soon as possible for a visit in 1 week(s) [address] [place] [address] Next Steps: Follow up documented in this encounter Medications at Time [...] WEEK 12 tablet 2 2 06/12/20 23 aspirin 81 mg enteric coated tabletIndications :prevention of thrombosis Take 1 tablet (81 mg total) by mouth slasher tender before breakfast 11/28/19 24 blood glucose diagnostic [...] for muscle spasms 30 tablet 2 2 01/26/20 22 fluticasone propionate (FLONASE) 50 mcg/actuation nasal sprayIndications: Seasonal allergic rhinitis due to pollen SPRAY 2 SPRAYS INTO EACH NOSTRIL EVERY DAY 48 mL 1 2 07/03/20 22 furosemide (LASIX) 20 mg tabletIndications :Hypertension associated with type 2 diabetes mellitus ([facility]) TAKE 1 TABLET BY MOUTH EVERY DAY 90 tablet 1 2 02/06/20 22 gabapentin (NEURONTIN) 100 mg capsule Take 1 capsule (100 mg total) by mouth 3 (three) times a day 90 capsule 11 1 06/08/20 23 glipiZIDE (GLUCOTROL) 5 mg tabletIndications :type 2 diabetes mellitus Take 0.5 tablets (2.5 mg total) by mouth daily as needed (with largest meal of the day) 45 tablet 1 1 03/28/20 23 HYDROcodone-aceta minophen (NORCO) 5-325 mg per tabletIndications :Pain Take 1 tablet by mouth 3 (three) times a day as needed for pain 90 tablet 2 03/04/20 22 LANTUS 100 unit/mL (3 mL) pen for injectionIndicati ons:Controlled type 2 diabetes mellitus with diabetic polyneuropathy, without long-term current use of insulin ([facility]) INJECT 48 UNITS SUBCUTANEOUSLY DAILY 30 mL 5 2 05/26/20 23 montelukast (SINGULAIR) 10 mg tablet TAKE 1 TABLET BY MOUTH EVERYDAY AT BEDTIME 90 tablet 1 2 02/06/20 22 NovoLOG 100 unit/mL (3 mL) pen for [...] DAY AT NIGHT 90 tablet 1 2 02/20/20 22 documented as of this encounter Discharge Disposition Disposition Code Departure Means Destination Discharge to an IP Rehab facility [facility] documented in this encounter Progress Notes * Edgar Siegel, OT - 01/18/2022 2:18 PM CDT Occupational Therapy 01/18/22 1355 General Session Type Treatment OT Received On 01/18/22 Safe Environment Arm Band Checked;Call Light within Reach;Notified RN;Patient found sitting in Chair;Overbed Table within Reach Subjective Agreeable to Therapy Family/Caregiver Present No Precautions Precautions Fall risk Pain Assessment Pain Assessment 0-10 Pain Score 8 Pain Location Leg Pain Orientation Right;Left Pain Interventions Repositioned Balance Balance Yes Static Sitting Balance Static Sitting-Balance Support Feet supported;No upper extremity supported Static Sitting-Sitting Surface Chair Static Sitting-Level of Assistance Independent Static Standing Balance Static Standing-Balance Support Bilateral upper extremity supported;Unilateral upper extremity supported Static Standing-Standing Surface Floor Static Standing-Level of Assistance Contact guard ADL ADLS (WDL) X Grooming Grooming: Where assessed Standing at sink Grooming: Level of assistance Contact Guard Assist Grooming: Assistance with Wash/dry hands;Wash/dry face;Teeth care Toileting Toileting: Where assessed (pt completed tolet transfer but declined toileting at time of OT treatment) Bed Mobility 1 Bed Mobility Comments 1 pt received up in chair Transfer 1 Transfer From 1 Chair with arms Transfer Type 1 To and from Transfer to 1 Toilet Technique 1 Sit to stand;Stand to sit Transfer Device 1 Wheeled walker Transfer Level of Assistance 1 Minimum Assist;Contact Guard Assist Trials/Comments 1 fatigues quickly, rest break on toilet prior to return to chair Cognition Overall Cognitive Status WFL Orientation Oriented X4 (person, place, time, situation) Compliance/Behavior Easy to engage Activity Tolerance Activity Tolerance Comments rest breaks with all activity, fatigues quickly Assessment Prognosis Excellent Problem List Decreased endurance;Decreased functional mobility;Decreased ADL independence;DecreasedIADL independence Plan Plan If this is the last note, consider this the discharge summary;Continue with current plan Recommendation/Plan OT Recommendation [facility] Patient at high risk for Falls;Readmission;Injury due to decreased ability to care for self;Injury due to reduced functional status;Injury due to balance deficits;Injury at home as patient has not returned to prior level of function Recommend SNF due to Risk of injury at home;Unable to safely care for self in the home;Skilled therapy needed to address care for self in the home;Skilled therapy needed to address functional deficits;Skilled therapy needed for patient to return to prior level of independence OT Frequency 3-5x/wk (Mon-Fri, Sat PRN) Treatment/Interventions ADL/IADL retraining;Balance Training;Functional activity;Functional mobility training;Functional transfer training;Therapeutic activity Progress Progressing toward goals * Khris Cavazos, COOKER MEAL - 01/18/2022 11:29 AM CDT Physical Therapy 01/18/22 0955 PT Last Visit Session Type Treatment PT Received On 01/18/22 Precautions Precautions Fall risk Pain Assessment Pain Assessment 0-10 Pain Score 0 - No pain Cognition Overall Cognitive Status WFL Bed Mobility 1 Bed Mobility From 1 Supine Bed Mobility Type 1 To Bed Mobility to 1 Edge of bed Level of Assistance 1 Contact Guard Assist Transfer 1 Transfer From 1 Sit Transfer Type 1 To and from Transfer to 1 Stand Transfer Device 1 Wheeled walker Transfer Level of Assistance 1 Contact Guard Assist;Minimum Assist Trials/Comments 1 Fatigues quickly Ambulation 1 Distance (ft) 1 40' x 2 Surface 1 Level tile Device 1 Wheeled walker Assistance 1 Minimum Assist Gait: Requires assist with 1 Maintaining balance;Preventing knee buckling Ambulation Comments 1 Patient states when the pain in her back is bad, she goes down quickly. Wouldkeep w/c close behind while ambulating patient Assessment Prognosis Good Plan Plan If this is the last note, consider this the discharge summary Recommendation/Plan PT Recommendation/Plan [facility] Patient at high risk for Falls;Readmission;Injury at home as patient has not returned to prior level of function Recommend SNF due to Risk of injury at home;Unable to safely care for self in the home;Skilled therapy needed to address care for self in the home;Skilled therapy needed to address functional deficits;Skilled therapy needed for patient to return to prior level of independence Multi-Disciplinary Problems (from Physical Therapy) Active Problems Problem: PT Misc Start Date: 01/17/22 Goal Start Date Expected End Date End Date PT [facility] 1 01/17/22 01/24/22 -- Goal Details: Pt will perform bed mobility indep. Goal Start Date Expected End Date End Date PT [facility] [place] [facility] [place] [facility] 2 01/17/22 01/24/22 -- Goal Details: Pt will perform functional transfers indep. Goal Start Date Expected End Date End Date PT [facility] [place] [facility] [place] [facility] 3 01/17/22 01/24/22 -- Goal Details: Pt will amb with ww and SBA/indep for 30'. * Neelam Meyer NP - 01/18/2022 9:28 AM CDT Neurology Progress Note SUBJECTIVE Criss Ly is a 71 y.o. female with chief complaint of lower extremity weakness Interval History: No acute change overnight. Resting comfortably on the bed. Worked with PT. Dr Jin contacted [facility] neurosurgery but their impression was that outpt consult would be ok. Review of Systems Constitutional: Denies fever, or chills HEENT: Denies vision change, hearing, or sore throat Respiratory: Denies current SOB, wheezing, or cough Cardiovascular: Denies current chest pain, palpitation, or cyanosis GI: Denies abdominal pain, constipation, or diarrhea : Denies dysuria, polyuria, or hematuria Integumentary: Denies ulcer, rash, or wound Hemo/Lymph: Denies active bleeding, lymph node enlargement Metabolic/Endocrine: Denies cold intolerance, heat intolerance Neuro: reports BLE weakness. No Known Allergies Current Facility-Administered Medications Medication Dose Route Frequency Provider Last Rate Last Admin ??? acetaminophen (TYLENOL) tablet 650 mg 650 mg oral Q6H PRN Lili Lujan MD ??? albuterol 2.5 mg /3 mL (0.083 %) nebulizer solution 2.5 mg 2.5 mg nebulization Q6H PRN (RT) Dari Rodgers MD ??? aspirin enteric coated tablet 81 mg 81 mg oral Daily Dari Rodgers MD 81 mg at 01/18/22812 ??? atorvastatin (LIPITOR) tablet 10 mg 10 mg oral Nightly Dari Rodgers MD 10 mg at 01/17/222107 ??? bisacodyl EC (DULCOLAX EC) tablet 10 mg 10 mg oral Daily PRN Lili Lujan MD ??? cloNIDine (CATAPRES) tablet 0.05 mg 0.05 mg oral BID Dari Rodgers MD 0.05 mg at 01/18/22812 ??? dextrose gel in packet 15 g 15 g oral Q15 Min PRN Dari Rodgers MD Or ??? dextrose (D10W) 10% bolus 250 mL 250 mL intravenous Q15 Min PRN Dari Rodgers MD ??? enoxaparin (LOVENOX) syringe 100 mg 1 mg/kg subcutaneous Daily-2100 Funmilayo Jin,DO 100 mg at 01/17/22 1712 ??? fluticasone propionate (FLONASE) 50 mcg/actuation nasal spray 2 spray 2 spray each nostril Daily Dari Rodgers MD 2 spray at 01/18/22 0817 ??? furosemide (LASIX) tablet 20 mg 20 mg oral Daily Dari Rodgers MD 20 mg at 01/18/22 0816 ??? gabapentin (NEURONTIN) capsule 100 mg 100 mg oral TID Dari Rodgers MD 100 mg at 01/18/22 0813 ??? glucagon injection 1 mg 1 mg intramuscular Q30 Min PRN Dari Rodgers MD ??? HYDROcodone-acetaminophen (NORCO) 5-325 mg per tablet 1 tablet 1 tablet oral TID PRN Dari Rodgers MD 1 tablet at 01/17/22 1402 ??? insulin glargine (LANTUS, BASAGLAR, SEMGLEE) 100 unit/mL (3 mL) pen injection 35 Units 35 Unitssubcutaneous QAM Dari Rodgers MD 35 Units at 01/18/22 0818 ??? insulin lispro (HumaLOG, ADMELOG) 100 unit/mL pen injection 0-4 Units 0-4 Units subcutaneous Nightly Dari Rodgers MD 2 Units at 01/17/22 2132 ??? insulin lispro (HumaLOG, ADMELOG) 100 unit/mL pen injection 0-5 Units 0-5 Units subcutaneous TID with meals Dari Rodgers MD 1 Units at 01/18/22 0815 ??? magnesium hydroxide (MILK OF MAGNESIA) 80 mg/mL (33.3 mg/mL as elemental magnesium) oral suspension 30 mL 30 mL oral Daily PRN Lili Lujan MD ??? mineral oil (FLEET MINERAL OIL) enema 1 enema 1 enema rectal Daily PRN Lili Lujan MD ??? montelukast (SINGULAIR) tablet 10 mg 10 mg oral Nightly Dari Rodgers MD 10 mg at 01/17/22 2110 ??? ondansetron (ZOFRAN) injection 4 mg 4 mg intravenous Q4H PRN Lili Lujan MD ??? pantoprazole DR (PROTONIX) extended release tablet 40 mg 40 mg oral BID Dari Rodgers MD 40 mg at 01/18/22 0813 OBJECTIVE Vitals BP 136/70 (BP Location: Left arm) Pulse 80 Temp 36.1 ??C (96.9 ??F) (Temporal) Resp 20 Ht 167.6 cm (5' 6 ) Wt 103.1 kg (227 lb 4.7 oz) SpO2 97% BMI 36.69 kg/m?? Intake/Output Summary (Last 24 hours) at 01/18/2022 0928 Last data filed at 01/18/2022 0900 Gross per 24 hour Intake 650 ml Output -- Net 650 ml Physical Exam Constitutional/General: NAD HEENT/neck: atraumatic, normocephalic, no discharges Cardiovascular: regular rhythm, regular rate, no murmurs Respiratory: regular, unlabored, CTA bilaterally. Abdominal: soft, nontender, BS present Musculoskeletal: no atrophy, tenderness, abnormal movement Extremities: no significant edema, cyanosis or deformities Skin: warm, no rashes, bruise Neurological: Mental status: alert, speech fluent, comprehension intact, follow command appropriately Cranial nerve: KEREN, corneal reflex present. EOMI, VFF by confrontation method. Facial sensations symmetrical. Face symmetrical. Motor: bulk normal, tone normal, pronator drift negative. Strength 5/5 upper extremities, 3/5 with bilateral hip flexion, 4/5 with bilateral UE flexion and extension, 4+/5 with bilateral ankle dorsiflexion and plantar flexion. No abnormal movement. Reflexes: Biceps 2+ b/l, Knee reflex 2+ b/l, Achilles reflex 1+ b/l. plantar downward b/l. Sensation: LT Normal and symmetrical. Lab/Radiology/Diagnostic Review: Recent Labs Lab Units 01/17/22 1555 WBC K/cumm 10.4* HEMOGLOBIN g/dL 11.9 HEMATOCRIT % 36.2 PLATELETS K/cumm 210 Recent Labs Lab Units 01/18/22 0759 01/18/22 0311 01/17/22 0754 01/17/22 0312 SODIUM mmol/L -- 139 -- 142 POTASSIUM PLASMA mmol/L -- 4.3 -- 4.2 CHLORIDE mmol/L -- 104 -- 106 CO2 mmol/L -- 24 -- 24 ANIONGAP mmol/L -- 11 -- 12 GLUCOSE mg/dL -- 214* -- 157 POC GLUCOSE MONITOR mg/dL 187* -- < > -- BUN SERUM mg/dL -- 25 -- 23 CREATININE mg/dL -- 1.82* -- 1.99* CALCIUM mg/dL -- 9.1 -- 9.1 ALBUMIN g/dL -- 3.1* -- 3.2* ALK PHOS Units/L -- -- -- 66 ALT Units/L -- -- -- 17 AST Units/L -- -- -- 15 BILIRUBIN TOTAL mg/dL -- -- -- 0.5 < > = values in this interval not displayed. Past investigation 1. 01/17/2022 MRI of cervical spine: High-degree spinal stenosis at C7-T1 level with cord impingement. I reviewed the image. 2. 01/17/2022 MRI of thoracic spine and the lumbar spine: Moderate to severe spinal stenosis and severe bilateral foraminal stenosis at as L4 -5 level. Moderate stenosis at L3-4 level. I reviewed the image. 3. 12/22/2015 EKG: Sinus rhythm. HR 87. 4. 01/17/2022 BMP normal except creatinine 2.21. CBC unremarkable. New investigation 5. 01/18/2022 BMP notable for creatinine 1.82, glucose 214 6. 01/17/2022 ultrasound of the kidney unremarkable. I personally reviewed the above labs, images, and tests. ASSESSMENT/ PLAN This is a 71 years old patient who was brought to the hospital after a fall. Patient has been having subacute bilateral lower extremity weakness in the past 3-4 months, but worsening weakness in the past few weeks. MRI of cervical spine showed high-degree spinal stenosis with cord impingement at C7-T1 level. -Dr Bragg recommended transfer to [facility] for surgical intervention. Dr Jin discussed with neurosurgery at [facility] and they recommended outpt consult. She has an appt with neurosurgery referred by Dr Caruso (pain management) in a few weeks and she'd like to see them. ?? Recommendation: 1.Continue PT OT 2.On fall precaution. We will continue to follow up as needed. Discussed with the charge nurse. Thank you for allowing us to participate in the care of this patient. Neelam Meyer, LEANDRO, OFFSET PRESSMAN-C *This dictation was performed using the [employer] Direct dictation system and despite proof reading typographical errors may occur. * Osmin Paige MD - 01/18/2022 6:06 AM CDT Nothing to add from a renal standpoint. Will sign off. * Funmilayo Jin DO - 01/17/2022 8:39 PM CDT Spoke with ortho spine diffusion furnace operator, . He does believe Criss will need surgery. However there are no indications for emergent transfer currently. Because this will likely be a very involved surgery they would recommend close follow up in the next couple of weeks with orthopedic spine surgery group at [place] or if she prefers, she can follow up with her prior surgeon. Funmilayo Jin DO 01/17/22 * Funmilayo Jin, - 01/17/2022 3:39 PM CDT [facility] Hospitalist Service Progress Note Patient Name: Criss Ly Patient : 1950 Age/Sex: 71 y.o. female Room/Bed: [place] [id number] Admission Date/Time: 01/16/2022 11:46 AM Date: 01/17/2022 Time: 3:39 PM Chief Complaint: WEAKNESS OF BOTH LOWER EXTREMITIES (PRIMARY ENCOUNTER DIAGNOSIS) LOW BACK PAIN, UNSPECIFIED BACK PAIN LATERALITY, UNSPECIFIED CHRONICITY, UNSPECIFIED WHETHER SCIATICA PRESENT Subjective: Pt with persistent bilateral LE weakness, worse on the R. Multiple recent falls and was down for a significant amount of time, nearly all day after one episode. US showed nonocclusive RLE DVT. Allergies: No Known Allergies Current Medication List: Scheduled Meds:aspirin, 81 mg, oral, Daily atorvastatin, 10 mg, oral, Nightly cloNIDine, 0.05 mg, oral, BID enoxaparin, 1 mg/kg, subcutaneous, Daily-2100 fluticasone propionate, 2 spray, each nostril, Daily furosemide, 20 mg, oral, Daily gabapentin, 100 mg, oral, TID insulin glargine, 35 Units, subcutaneous, QAM insulin lispro, 0-4 Units, subcutaneous, Nightly insulin lispro, 0-5 Units, subcutaneous, TID with meals montelukast, 10 mg, oral, Nightly pantoprazole DR, 40 mg, oral, BID Continuous Infusions: PRN Meds:??? acetaminophen ??? albuterol ??? bisacodyl EC ??? dextrose OR dextrose ??? glucagon ??? HYDROcodone-acetaminophen ??? magnesium hydroxide ??? mineral oil ??? ondansetron Objective: Vitals: Vitals: 01/16/22 1629 01/16/22 2319 01/17/22 0700 01/17/22 1100 BP: 142/66 129/52 168/67 120/89 BP Location: Right arm Left arm Left arm Right arm Patient Position: Lying;HOB 30 degrees Lying Lying Pulse: 85 69 75 78 Resp: 20 16 20 20 Temp: 36.2 ??C (97.2 ??F) 36.3 ??C (97.4 ??F) 36.6 ??C (97.9 ??F) 36.6 ??C (97.9 ??F) TempSrc: Temporal Temporal Temporal Temporal SpO2: 100% 100% 100% 99% Weight: 103.1 kg (227 lb 4.7 oz) Height: 167.6 cm (5' 6 ) Physical Exam: Constitutional: general appearance alert, cooperative, no distress, oriented to person, place, and time, well appearing Eyes: sclera and conjunctiva clear, EOMI and PERRLA, lids normal Head: normocephalic, without trauma Nose: nares open; no septal deviation is noted Throat: no mucous membrane abnormalities Neck: No JVD, no palpable lymph nodes, range of motion is intact, no masses, thyroid not enlarged, no adenopathy, no carotid bruit Pulmonary: Lungs clear to auscultation bilaterally, no rales or wheezes CV: heart regular rhythm, normal S1 and S2, without murmurs, gallops or rubs GI: abdomen soft without mass, non-tender, with normal bowel sounds Musculoskeletal/extremities: no clubbing, cyanosis. Pitting bilateral LE edema. No tenderness to palpation. Skin: warm, dry, no rashes or lesions Neurologic: mental status normal; alert and oriented X 3; cranial nerves II - XII are grossly intact. Decreased strength 3/5 R and 4/5 L plantar flexion. Sensation intact to light touch. Psych: appropriate mood and affect Labs: Lab Results Component Value Date GLUCOSE 199 (H) 01/17/2022 CALCIUM 9.1 01/17/2022 SODIUM 142 01/17/2022 POTASSIUM 4.2 01/17/2022 CO2 24 01/17/2022 CHLORIDE 106 01/17/2022 BUNSER 23 01/17/2022 CREATININE 1.99 (H) 01/17/2022 Lab Results Component Value Date WBC 9.7 01/17/2022 HGB 10.6 (L) 01/17/2022 HCT 33.5 (L) 01/17/2022 MCV 93.8 01/17/2022 LABPLAT 191 01/17/2022 Pertinent Labs: I have reviewed the pertinent labs. Radiology: CT Thoracic Spine WO Contrast Result Date: 01/16/2022 Narrative: EXAM DESCRIPTION: CT THORACIC SPINE WO CONTRAST REASON FOR STUDY: Back pain after fall this morning. TECHNIQUE: Axial images acquired through the thoracic spine without intravenous contrast. Images reviewed with lung, soft tissue and bone windows. Reconstructed coronal and sagittal MPR images reviewed. Images stored on PACS. Automated exposure control was used as a dose optimization technique for this examination. COMPARISON: CT lumbar spine 09/04/2021 CT chest 07/25/2014 FINDINGS: ALIGNMENT: Normal. VERTEBRAE: No fracture. Vertebral body height well-maintained. Mild diffuse thoracic spondylosis. DISC HEIGHT: Mild loss of intervertebral disc space height in the mid thoracic spine. HARDWARE: Osseous fusion in the cervical spine is only partially visualized. THORACIC DISCS T1-T12: No significant osseous spinal stenosis or neuroforaminal stenosis. SOFT TISSUES: Dependent opacities lungs likely represent areas of atelectasis. LOWER CERVICAL: Incompletely imaged. No significant osseous spinal stenosis or osseous foraminal stenosis. UPPER LUMBAR: Incompletely imaged. No significant osseous spinal or osseous neuroforaminal stenosis. OTHER: No other significant abnormality. IMPRESSION: 1. No acute fracture of the thoracic spine. 2. Mild diffuse thoracic spondylosis. THIS IS AN ELECTRONICALLY VERIFIED FINAL REPORT 01/16/2022 12:57 PM - Electronically signed by Néstor Davis M.D. LB: ARVIND Report ID: [id number] Reading Location: [id number] CT Lumbar Spine WO Contrast Result Date: 01/16/2022 Narrative: EXAM DESCRIPTION: CT LUMBAR SPINE WO CONTRAST REASON FOR STUDY: Back pain and weakness after fall today. TECHNIQUE: Axial images acquired through the lumbar spine without intravenous contrast. Reconstructed coronal and sagittal MPR images reviewed. All images stored on PACS. Automated exposure control was used as a dose optimization technique for this examination. COMPARISON: CT lumbarspine 09/04/2021 FINDINGS: SEGMENTATION: No transitional anatomy. The lowest well-developed disc space is labeled L5-S1. ALIGNMENT: Minimal dextroscoliosis of the lumbar spine. Grade 1 anterolisthesis of L4 on L5 is unchanged. VERTEBRAE: No fracture identified. Moderate diffuse lumbar spondylosis. Prominent Schmorl's node along the inferior endplate of L4. DISC HEIGHT: Minimal loss of intervertebral disc space height at L2-3, L3-4, L4-5. HARDWARE: None in the spine. INDIVIDUAL DISC LEVELS: Broad-based disc bulge at L2-3 causes mild spinal canal narrowing. Broad-based disc bulge at L3-4 causes mild spinal canal narrowing and mild left neural foraminal narrowing. Broad- based disc bulge at L4-5 causes moderate to severe spinal canal narrowing. Prior left laminectomy at L4. Severe left and moderate right neural foraminal narrowing at L4-5. Broad-based disc bulge at L5-S1 causes mild spinal canal narrowing. There is severe right and moderate left neural foraminal narrowing at L5-S1. VISUALIZED RIBS: No fractures. SOFT TISSUES: No significant or acute finding in adjacent soft tissues. OTHER: No other significant finding. IMPRESSION: No acute fracture of the lumbar spine. Moderate to severe lumbar spondylosis. Evaluation of the spinal canal contents is limited on noncontrast CT. THIS IS AN ELECTRONICALLY VERIFIED FINAL REPORT 01/16/2022 1:06 PM - Electronically signed by Néstor Davis M.D. LB: ARVIND Report ID: [id number] Reading Location: [id number] MRI Cervical Spine WO Contrast Result Date: 01/17/2022 Narrative: EXAM DESCRIPTION: MRI CERVICAL SPINE WO CONTRAST REASON FOR STUDY: Neck pain, initial exam, neck pain Neck pain, difficulty walking, unsteady, leg weakness, 2008 cervical fusion C3-C7 Doneon OPEN MRI due to body habitus TECHNIQUE: Sagittal and Axial imaging includes T1, T2, STIR and gradient echo sequences. COMPARISON: Comparison MRI cervical spine from 04/20/2008. Additional comparison CT cervical spine 09/04/2021. FINDINGS: ALIGNMENT: There is overall straightening and slight reversal of lordosis with trace degenerative anterolisthesis of C7 on T1. VERTEBRAE: There is solid osseous fusion of C3 through C7. DISCS: Solid fusion of C3 through C7. Disc degeneration at C7-T1. See detail below. HARDWARE: Interbody fusions hardware spanning C3 through C7. Findings may be correlatedwith plain film. CORD: There is severe cord impingement with probably with a small area of T2 hyperintensity in the ventral cord. The cord appears expanded on this sagittal images however this is probably due to the lateral flattening resulting in anterior posterior diameter widening on sagittal images. At the cervical levels above, no definite intra cord signal abnormality is identified.. INDIVIDUAL LEVELS: C1-C2: There is some hypertrophy of soft tissue around the odontoid C1 articulation likely due to thickening of ligaments. C2-C3: There is no significant spinal stenosis. There is mild to moderate bilateral foraminal narrowing due to facet spurs C3-C4: This level is fused. Some residualuncovertebral spurring with mild to moderate foraminal narrowing bilaterally is evident but there is no spinal stenosis or cord impingement. C4-C5: This level is solidly fused. No definite central canal stenosis or foraminal stenosis. C5-C6: No spinal stenosis or foraminal stenosis. C6-C7: No spinal stenosis. There may be bilateral foraminal narrowing due to uncovertebral spurs. Foramina somewhatdifficult to evaluate C7-T1: Severe spinal stenosis has developed at this level when compared to prior MRI from 04/20/2008 with degenerative anterolisthesis and severe thickening and hypertrophy of po sterior ligamentous structures and bulging of the disc annulus. Severe cord impingement and severe bilateral foraminal narrowing. Findings may account for the patient's myelopathic symptoms. Please correlate with clinical features. BASE OF BRAIN: No significant finding. UPPER THORACIC: Incompletelyimaged. No significant spinal stenosis or foraminal stenosis. OTHER: No other significant finding. IMPRESSION: Solid-appearing fusion of C3 through C7. No spinal stenosis or cord impingement at theselevels however there is residual multilevel facet arthritis and uncovertebral spurs with multilevelforaminal narrowing, as above. Interval development of severe disc degeneration at the C7-T1 disc level. There is no degenerative anterolisthesis of C7 on T1 and significant thickening of posterior ligaments and facet joints with severe spinal stenosis circumferentially. There is severe bilateral foraminal narrowing. On the sagittal images, the cord appears increased in diameter however this is probably due to bilateral lateral compression of the cord. Possible faint T2 hyperintensity in the cord at this level may indicate compressive edema. THIS IS AN ELECTRONICALLY VERIFIED FINAL REPORT 01/17/2022 2:23 PM - Electronically signed by Lauryn MAGANA:IZZY Report ID: [id number] Reading Location: [place] [id number] MRI Thoracic Spine WO Contrast Result Date: 01/17/2022 Narrative: EXAM DESCRIPTION: MRI THORACIC SPINE WO CONTRAST REASON FOR STUDY: Mid-back pain, neuro deficit, difficulty ambulating/ leg weakness Mid-back pain, difficulty walking, unsteady, leg weakness Done on OPEN MRI due to body habitus TECHNIQUE: Sagittal and Axial imaging includes T1, T2, STIR and gradient echo sequences. COMPARISON: Comparison the CT thoracic spine 01/16/2022. FINDINGS: ALIGNMENT: Normal. VERTEBRAE: Vertebral body height well-maintained. Normal appearing marrow. HARDWARE: None in the spine. CORD: Normal in size and signal intensity. THORACIC DISCS T1-T12: Disc heights well-maintained. No significant spinal stenosis or neuroforaminal stenosis. SOFT TISSUES: No soft tissue masses. LOWER CERVICAL: Incompletely imaged. Severe spinal stenosis with cord impingement partly visualized at C7-T1. Please refer to cervical MRI imaging separately dictated.. UPPER LUMBAR: Incompletely imaged. No significant spinal or neuroforaminal stenosis. OTHER: No other significant abnormality. IMPRESSION: No definable abnormality of the thoracic spine. Mild multilevel chronic disc degeneration and endplate spurring without high-grade spinal stenosis or compressive disc herniation. Severe spinal stenosis and cord impingement at C7- T1 partly visualized. Findings better delineated on cervical MRI imaging. Please refer to that report separately dictated. THIS IS AN ELECTRONICALLY VERIFIED FINAL REPORT 01/17/2022 2:12 PM - Electronically signed by Lauryn Matthews M.D. LC: IZZY Report ID: [id number] Reading Location: [id number] MRI Lumbar Spine WO Contrast Result Date: 01/17/2022 Narrative: EXAM DESCRIPTION: MRI LUMBAR SPINE WO CONTRAST REASON FOR STUDY: Back pain or radiculopathy, > 6 wks, back apin Low back pain, difficulty walking, unsteady, leg weakness, Prior left laminectomy at L4 Done on OPEN MRI due to body habitus TECHNIQUE: Sagittal and Axial imaging includes T1, T2, STIR sequences. COMPARISON: Comparison 01/26/2018 FINDINGS: SEGMENTATION: No transitional anatomy. The lowest well-developed disc space is labeled L5-S1. ALIGNMENT: There is degenerative anterolisthesis of L4 on L5 which has progressed since prior. Alignment otherwise is normal. VERTEBRAE: Vertebral body height well-maintained. Normal appearing marrow. DISC HEIGHT: Well-maintained. HARDWARE: None in the spine. CORD/CAUDA: Normal in size and signal intensity. Conus at the appropriate level. LOWER THORACIC: Incompletely imaged. No stenosis seen. INDIVIDUAL DISC LEVELS: L1-2: No diffuse disc bulge or focal herniation. No significant spinal canal or neuroforaminal stenosis. L2-3: Moderateannular bulge with facet arthritis and thickening of posterior ligaments. There is stable mild to moderate spinal stenosis. No significant foraminal narrowing. L3- 4: Disc space narrowing with hypertrophy of facets and ligaments posteriorly. In conjunction with diffuse annular bulge, there is moderate spinal stenosis and subarticular stenosis. Moderate bilateral foraminal narrowing. L4-5: Postopera tive change of prior left hemilaminotomy. There is moderate to severe spinal stenosis and severe bilateral foraminal stenosis due to increasing degenerative anterolisthesis, disc bulge and facet and ligamentous hypertrophy. Bilateral subarticular stenosis also evident. L5-S1: Central disc protrusion. No significant central canal stenosis. Foraminal narrowing right greater than left due to lateralendplate and facet spurs.. SACRUM: Visualized upper sacrum intact. VISUALIZED UPPER ABDOMEN: No significant abnormality. OTHER: No other significant findings. IMPRESSION: Increasing degenerative anterolisthesis at L4- 5 with increasing spinal stenosis and severe bilateral foraminal narrowing due to chronic endplate and disc changes and facet and ligamentous hypertrophy in conjunction with degenerative anterolisthesis. Postop left hemilaminotomy changes again evident at this level as well. Multilevel disc degeneration other levels has remained relatively stable, as above. Please correlate with r adiculopathy symptoms. THIS IS AN ELECTRONICALLY VERIFIED FINAL REPORT 01/17/2022 1:19 PM - Electronically signed by Lauryn Matthews M.D. LC: IZZY Report ID: [id number] Reading Location: [id number] US Kidney Complete Result Date: 01/17/2022 Narrative: EXAM DESCRIPTION: US KIDNEY COMPLETE REASON FOR STUDY: arf Acute renal failure. Chronic kidney disease stage 4. Diabetes. TECHNIQUE: Ultrasound of the kidneys and urinary bladder was performed with grayscale imaging. COMPARISON: 06/28/2021 FINDINGS: Exam is suboptimal secondary to patient's body habitus. RIGHT KIDNEY: The right kidney measures 9.4 x 4.9 x 4.4 cm. There is no definite sonographic evidence of hydronephrosis. There is cortical thinning with increased cortical echogenicity. There is a cyst noted in the upper pole of the right kidney measuring 2.0 x 1.8 x 1.7 cm. LEFT KIDNEY: The left kidney measures 9.0 x 4.6 x 4.4 cm. There is no definite sonographic evidence of hyd ronephrosis. There is cortical thinning with increased cortical echogenicity. URINARY BLADDER: The urinary bladder, as visualized, appears unremarkable. OTHER: No other additional findings. IMPRESSION: 1. No definite sonographic evidence of hydronephrosis. 2. Cortical thinning with increased cortical echogenicity of bilateral kidneys, which is likely related to chronic medical renal disease. THISIS AN ELECTRONICALLY VERIFIED FINAL REPORT 01/17/2022 3:30 PM - Electronically signed by Fabiana Lilly D.O. PS: PS Report ID: [id number] Reading Location: [id number] US Vein Duplex Lower Extremity Bilateral Complete Result Date: 01/17/2022 Narrative: EXAM DESCRIPTION: US VEIN DUPLEX LOWER EXTREMITY BILATERAL COMPLETE REASON FOR STUDY: Swelling, Lower Extremity, Bilateral TECHNIQUE: Grayscale, color and spectral Doppler imaging of the deep venous system of the bilateral lower extremities was performed. Images stored on PACS. COMPARISON: None FINDINGS: There is nonocclusive thrombus noted in the mid right superficial femoral vein. The bilateral common femoral, left superficial femoral, and bilateral popliteal veins are readily compressible with no intraluminal thrombus on conroy scale images. There is normal color and spectral Doppler signal, including augmentation. The bilateral greater saphenous veins appear patent. Visualized calf veins are patent. IMPRESSION: 1. Nonocclusive thrombus in the mid right superficial femoral vein. 2. No definite evidence of a deep venous thrombosis in the left lower extremity venous system. Findings were discussed with patient's nurse, SEBASTIÁN Chavis, by Dr. Lilly at 14:52 hours on 01/17/2022 . T HIS IS AN ELECTRONICALLY VERIFIED FINAL REPORT 01/17/2022 2:52 PM - Electronically signed by Fabiana Lilly D.O. PS: PS Report ID: [id number] Reading Location: [place] [id number] Microbiology: No results found for requested labs within last 720 hours. ASSESSMENT AND PLAN: Principal Problem: Weakness of both lower extremities Active Problems: CKD (chronic kidney disease) stage 4, GFR 15-29 ml/min ([facility] ([facility]) Type 2 diabetes mellitus with diabetic neuropathy, with long-term current use of insulin ([facility] ([facility]) Chronic back pain Weakness of both lower extremities Acute on chronic lower back pain -has moderate to severe lumbar spondylosis and diffuse thoracic spondylosis -MRI spine pending, neurology consulted ?? DM with neuropathy -on daily lantus and humalog sliding scale -neurontin 100mg tid RLE DVT - likely provoked due to recent falls, start therapeutic lovenox ?? CKD 4 -renal function is at baseline -US was negative for obstruction ?? HTN -on lasix and clonidine BID ?? GERD -on protonix BID ?? Bilateral lower extremity swelling -doppler to rule out dvt DVT PPx: lovenox MDM:high complexity Funmilayo Jin DO Internal Medicine [facility] Hospitalist Service 01/17/2022 3:39 PM * Lizbet Dubois RN - 01/17/2022 11:51 AM CDT CM Initial Assessment Interview Note Information Obtained From: Patient (01/17/22 1150) Admission Source: home Impression: weakness of both lower extremities Plan Includes: evaluation Primary Source of Transportation: sister Health Insurance Coverage: [facility] Prescription Coverage: yes Pharmacy: [facility] Primary Care Provider: Lalito England MD Prior to Admission: Primary Caregiver: Self Support System: Family members Support system contact info (name, phone, availablity): sister, brother Home Care Services: No Durable Medical Equipment: Cane (single prong), Rollator, Walker (wheeled) Living Arrangements: Alone Type of Residence: Private residence Steps in home? : Yes, Outside of home Number of steps outside:: 3 steps (01/17/22 1150) Patient expects to be Discharged to: Private residence, (01/17/22 1150) Additional Information: Patient lives at home alone. Uses a w/w mostly but also has a rollator and cane for mobility. Able to drive. Patient says she is very weak in the legs. PT/OT eval. Patient would prefer to go home at discharge but will need to speak to her again about recommendations from PT/OT. Patient has no one to stay with her at home when discharge. Sister can provide transportation for patient. IMM signed. Will continue to follow. Patient's Identified Problem/Goal Problem: Ensure acute medical needs are met and that patient has a safe discharge plan. Goal: Secure a discharge plan that patient/family are agreeable with and ensure patient has continuum of care. Case management will follow for discharge planning and send referrals as needed. Lizbet Dubois RN * Olivia Diaz, PT - 01/17/2022 11:13 AM CDT Physical Therapy Evaluation 01/17/22 1100 General Chart Reviewed Yes Session Type Evaluation PT Received On 01/17/22 Subjective Agreeable to Therapy Subjective Comment I can't figure out what is going on with my legs. Family/Caregiver Present No Precautions Precautions Fall risk Home Living Type of Home House Home Layout One level Home Access Stairs to enter without rails Entrance Stairs-Number of Steps 1+2 Home Mobility Equipment 4-Wheeled walker;Wheeled walker Prior Function Level of [place] Independent with ADLs;Independent functional transfers;Independent with ambulation;Independent with homemaking with ambulation Lives With Alone Receives Help From Family Driving Yes Fall within the last 6 months Yes Fall within the last 6 months comment Pt states she has had 3 falls in the past 2 weeks. This is the reason for her admission. Pain Assessment Pain Assessment 0-10 Pain Score 6 Pain Type Chronic pain Pain Location Leg Cognition Orientation Oriented X4 (person, place, time, situation) Bed Mobility Bed Mobility No (OOB) Transfer 1 Transfer From 1 Sit Transfer Type 1 To and from Transfer to 1 Stand Transfer Device 1 Wheeled walker Transfer Level of Assistance 1 Minimum Assist Ambulation 1 Distance (ft) 1 8 Surface 1 Level tile Device 1 Wheeled walker Assistance 1 Minimum Assist Quality of Gait 1 Flexed posture with decreased B step length Ambulation Comments 1 Pt fagitued quickly and needed chair pulled up behind her to sit down. RLE Assessment RLE Assessment WFL LLE Assessment LLE Assessment WFL Other Comments Other PT Comments Pt states she was doing well until 4-5 weeks ago when she started progressively becoming weak in B LEs. Basic Mobility - 6 Click How much [...] 2 Total 6 Click Score (range 6-24) 16 Score Interpretation 38.32 Assessment Prognosis Good Problem List Decreased strength;Decreased mobility;Decreased endurance Plan Plan Plan of care initiated Recommendation/Plan PT Recommendation/Plan [facility] (Pt states she doesn't want this but knows she needs to get better before returning home.) Recommend SNF due to Risk of injury at home;Skilled therapy needed to address functional deficits;Skilled therapy needed for patient to return to prior level of independence PT Frequency Daily Treatment/Interventions Bed mobility;Endurance training;Functional transfer training;Gait training;Strengthening PT Evaluation Complete Yes * Ailin Ramirez, OT - 01/17/2022 9:39 AM CDT Occupational Therapy Initial Evaluation Past Medical History: Diagnosis Date Benign hypertension with CKD (chronic kidney disease) stage III (HCC) Gastroesophageal reflux disease GERD HX OTHER MEDICAL PMO HX OTHER MEDICAL [employer] HX OTHER MEDICAL [facility] OA HX OTHER MEDICAL 2008 Discectomy, cervical HX OTHER MEDICAL Fall HX OTHER MEDICAL Left proximal femoral Gamma Nail fixation proximal; Comments: [facility] 07/25/2015 - HX OTHER MEDICAL RTKR 2001.; Comments: [facility] 07/25/2015 - HX OTHER MEDICAL LTKR 2005.; Comments: [facility] 07/25/2015 - [...] hip arthroplasty left hip; Comments: [facility] unit 02/06 - 02/17/16 for rehabilitation. Hyperlipidemia Hyperlipidemia Hypertension Hypertension Osteoarthritis Osteoarthritis Polyp of colon colon polyps Sarcoidosis Sarcoidosis Type 2 diabetes mellitus (HCC) Diabetes type 2 Type 2 diabetes mellitus with diabetic autonomic (poly)neuropathy (HCC) Type 2 diabetes mellitus with hyperglycemia (CMS/HCC) (HCC) Type II diabetes mellitus with stage 3 chronic kidney disease (HCC) 01/17/22 0914 General Chart Reviewed Yes Session Type Evaluation OT Received On 01/17/22 Subjective Agreeable to Therapy Additional Pertinent History Weakness of bilateral lower extremity Family/Caregiver Present No Occupational Therapy-Patient Goal To return home Precautions Precautions Fall risk Home Living Type of Home House Home Layout One level Home Access Stairs to enter without rails Entrance Stairs-Number of Steps 1 + 2 Bathroom Shower/Tub Tub/shower unit Bathroom Equipment Shower chair;Hand-held shower Home Mobility Equipment Wheeled walker;4-Wheeled walker;Single point cane Prior Function Level of [place] Independent with ADLs;Independent functional transfers;Independent with ambulation;Independent with homemaking with ambulation Lives With Alone Receives Help From Family Driving Yes Fall within the last 6 months Yes Fall within the last 6 months comment Reason for admission; 2x LE Dressing LE Dressing: Where assessed Sitting;Edge of bed LE Dressing: Level of assistance Maximum Assist LE Dressing: Assistance with Don/doff R sock;Don/doff L sock Toileting Toileting: Where assessed Toilet Toileting: Level of assistance Minimum Assist Toileting: Assistance with Clothing management up;Clothing management down;Anterior Toilet Transfers Toilet Transfer Type To and from Toilet Transfer to Raised toilet seat with rails Toilet Transfer Technique Ambulating Toilet Transfer: Equipment Wheeled walker Toilet Transfers Minimal assistance Pain Assessment Pain Assessment 0-10 Pain Score 7 Pain Type Chronic pain Pain Location Leg Pain Orientation Right;Left Cognition Overall Cognitive Status WFL Orientation Oriented X4 (person, place, time, situation) Hand Function Gross Grasp Functional Bed Mobility 1 Bed Mobility From 1 Supine Bed Mobility Type 1 To Bed Mobility to 1 Edge of bed Level of Assistance 1 Minimum Assist Transfer 1 Transfer From 1 Sit;Bed Transfer Type 1 To Transfer to 1 Stand Technique 1 Sit to stand Transfer Device 1 Wheeled walker Transfer Level of Assistance 1 Minimum Assist Trials/Comments 1 Fatigues quickly, 10 ft Transfers 2 Transfer From 2 Stand Transfer Type 2 To Transfer to 2 Sit;Chair with arms Technique 2 Stand to sit Transfer Device 2 Wheeled walker Transfer Level of Assistance 2 Minimum Assist RUE Assessment RUE Assessment WFL LUE Assessment LUE Assessment WF OT Treatment/Exercise Comments OT Treatment/Exercise Comments Strength grossly (3+/5) Daily Activity - 6 Clicks Putting on and taking off regular lower body clothing 2 Bathing 2 Toileting 2 Putting on and taking off upper body clothing 3 Personal Grooming 3 Eating Meals 3 Total Score (range 6-24) 15 Score Interpretation 34.69 Assessment Prognosis Excellent Problem List Decreased endurance;Decreased balance;Decreased functional mobility;Decreased ADL independence;Pain Plan Plan Plan of care initiated;If this is the last note, consider this the discharge summary Recommendation/Plan OT Recommendation [facility] Patient at high risk for Falls;Readmission;Injury due to decreased ability to care for self;Injury due to reduced functional status Recommend SNF due to Risk of injury at home;Unable to safely care for self in the home;Skilled therapy needed to address care for self in the home;Skilled therapy needed to address functional deficits OT Frequency 3-5x/wk Friday-Friday, Sat. prn Treatment/Interventions ADL/IADL retraining;Functional mobility training;Functional transfer training;Therapeutic exercise OT Evaluation Complete Yes Multi-Disciplinary Problems (from Occupational Therapy) Active Problems Problem: Dressings Lower Extremities Start Date: 01/17/22 Goal Start Date Expected End Date End Date STG - Patient to complete lower body dressing 01/17/22 01/24/22 -- Goal Details: using adaptive equipment as indicated/trained with SBA Problem: Toileting Start Date: 01/17/22 Goal Start Date Expected End Date End Date STG - Patient will complete toileting tasks with 01/17/22 01/24/22 -- Goal Details: SBA Problem: Transfers Start Date: 01/17/22 Goal Start Date Expected End Date End Date STG - Patient will perform toilet transfer 01/17/22 01/24/22 -- Goal Details: with SBA using wheeled walker documented in this encounter H&P Notes * Dari Rodgers MD - 01/16/2022 9:13 PM CDT History and Physical CHIEF COMPLAINT Increased back pain and bilateral leg weakness HPI: 71yo female with history of DM, CKD, chronic back pain, cervical discectomy and lumbar laminectomy.She has had worsening back pain in the past month and gradual bilateral leg weakness to the point she is now using a walker instead of a cane. She has right sided lower back pain that radiates upwards when she walks. Has chronic decreased sensation in feet from neuropathy and chronic leg swelling. S he denies stool or urinary incontinence. She reports having a recent back injection done by Dr Caruso but has had no relief of the pain. She was referred to see an orthopedic MD but her appointment isnot until late January. She was told by her baggageman last week that she has poor circulation in her legs and was given a referral for possible vascular intervention. Past Medical History: Diagnosis Date ??? Benign hypertension with CKD (chronic kidney disease) stage III (HCC) ??? Gastroesophageal reflux disease GERD ??? HX OTHER MEDICAL PMO ??? 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 HX OTHER MEDICAL [facility] OA ??? HX OTHER MEDICAL 2008 Discectomy, cervical ??? HX OTHER MEDICAL Fall ??? HX OTHER MEDICAL Left proximal femoral Gamma Nail fixation proximal; Comments: [facility] 07/25/2015 - ??? HX OTHER MEDICAL RTKR 2001.; Comments: [facility] 07/25/2015 - ??? HX OTHER MEDICAL LTKR 2006.; Comments: [facility] 07/25/2015 - ??? HX OTHER MEDICAL Back surgery 2007.; Comments: [facility] 07/25/2015 - ??? HX OTHER MEDICAL Cervical disc surg. 2008.; Comments: [facility] 07/25/2015 - ??? HX OTHER MEDICAL Breast reduction 2009.; Comments: [facility] 07/25/2015 - ??? HX OTHER MEDICAL left hip and leg surgery ??? HX OTHER MEDICAL conversion of previous hip arthroplasty left hip; Comments: [facility] unit 02/06 - 02/17/16 for [...] Surgery, lumbar spine ??? OTHER SURGICAL HISTORY 2005 L TKA ??? OTHER SURGICAL HISTORY 2002 R TKA ??? OTHER SURGICAL HISTORY 2007 back surgery - microdecompression Lumbar ??? OTHER SURGICAL HISTORY Fall: Medical Management ??? OTHER SURGICAL HISTORY 2015 conversion of previous hip arthroplasty left hip: Conversion of Arthroplasty left hip ??? REDUCTION MAMMAPLASTY Bilateral 2008 ??? TONSILLECTOMY tonsillectomy Medications Prior to Admission Medication Sig Dispense Refill Last Dose ??? albuterol HFA (PROVENTIL HFA,VENTOLIN HFA) 90 mcg/actuation inhaler Inhale 2 puffs every 6 (six) hours as needed for wheezing. 01/15/2022 at Unknown time ??? alendronate (FOSAMAX) 70 mg tablet TAKE 1 TABLET BY MOUTH ONE TIME PER WEEK 12 tablet 2 01/15/2022 at Unknown time ??? aspirin 81 mg enteric coated tablet Take 81 mg by mouth daily 01/15/2022 at Unknown time ??? blood glucose diagnostic ([employer] Next Test Strips) strip Test blood sugar 3 times a day and will montior response. Dx: E11.22. 300 each 3 01/15/2022 at Unknown time ??? blood-glucose meter ([employer] NEXT USB METER) misc test as directed 1 each 0 01/15/2022 at Unknowntime ??? calcium carbonate-vitamin D3 500 mg(1,250mg) -400 unit tablet Take one by mouth two times per day 0 0 01/15/2022 at Unknown time ??? cloNIDine (CATAPRES) 0.1 mg tablet TAKE 1/2 TABLET BY MOUTH TWO TIMES A DAY 90 tablet 1 01/15/2022 at Unknown time ??? cyclobenzaprine (FLEXERIL) 10 mg tablet Take 1 tablet (10 mg total) by mouth nightly as needed for muscle spasms 30 tablet 2 ??? fluticasone propionate (FLONASE) 50 mcg/actuation nasal spray SPRAY 2 SPRAYS INTO EACH NOSTRIL EVERY DAY 48 mL 1 01/15/2022 at Unknown time ??? furosemide (LASIX) 20 mg tablet TAKE 1 TABLET BY MOUTH EVERY DAY 90 tablet 1 01/15/2022 at Unknown time ??? gabapentin (NEURONTIN) 100 mg capsule Take 1 capsule (100 mg total) by mouth 3 (three) times a day 90 capsule 11 01/15/2022 at Unknown time ??? glipiZIDE (GLUCOTROL) 5 mg tablet Take 0.5 tablets (2.5 mg total) by mouth daily as needed (with largest meal of the day) 45 tablet 1 01/15/2022 at Unknown time ??? HYDROcodone-acetaminophen (NORCO) 5-325 mg per tablet Take 1 tablet by mouth 3 (three) times a day as needed for pain 90 tablet 0 01/15/2022 at Unknown time ??? [START ON 01/27/2022] HYDROcodone-acetaminophen (NORCO) 5-325 mg per tablet Take 1 tablet by mouth 3 (three) times a day as needed for pain 90 tablet 0 01/15/2022 at Unknown time ??? lancets (MICROLET LANCET) misc test by fingerstick route 3 times daily 300 each 3 01/15/2022 at Unknown time ??? LANTUS 100 unit/mL (3 mL) pen for injection INJECT 48 UNITS SUBCUTANEOUSLY DAILY 30 mL 5 01/15/2022 at Unknown time ??? montelukast (SINGULAIR) 10 mg tablet TAKE 1 TABLET BY MOUTH EVERYDAY AT BEDTIME 90 tablet 1 01/15/2022 at Unknown time ??? naloxone (NARCAN) 4 mg/actuation spray,non-aerosol Administer 1 spray into affected nostril(s) as needed for opioid reversal 1 each 0 Unknown at Unknown time ??? NovoLOG 100 unit/mL (3 mL) pen for injection INJECT 32 UNITS UNDER THE SKIN 3 (THREE) TIMES A DAY BEFORE MEALS 84 mL 2 01/15/2022 at Unknown time ??? pantoprazole DR (PROTONIX) 40 mg EC tablet TAKE 1 TABLET BY MOUTH TWICE A DAY 180 tablet 1 01/15/2022 at Unknown time ??? pen needle, diabetic (BD Ultra-Fine Mini Pen Needle) 31 gauge x 3/16 needle 1 needle as directed 300 each 3 01/15/2022 at Unknown time ??? simvastatin (ZOCOR) 40 mg tablet TAKE 1 TABLET BY MOUTH EVERY DAY AT NIGHT 90 tablet 1 2at Unknown time No Known Allergies Current Facility-Administered Medications Medication Dose Route Frequency Provider Last Rate Last Admin ??? acetaminophen (TYLENOL) tablet 650 mg 650 mg oral Q6H PRN Lili Lujan MD ??? albuterol HFA (PROVENTIL HFA,VENTOLIN HFA,PROAIR HFA) 90 mcg/actuation inhaler 2 puff 2 puff inhalation Q6H PRN Dari Rodgers MD ??? [START ON 01/17/2022] aspirin enteric coated tablet 81 mg 81 mg oral Daily Dari Rodgers MD ??? atorvastatin (LIPITOR) tablet 10 mg 10 mg oral Nightly Dari Rodgers MD ??? bisacodyl EC (DULCOLAX EC) tablet 10 mg 10 mg oral Daily PRN Lili Lujan MD ??? cloNIDine (CATAPRES) tablet 0.05 mg 0.05 mg oral BID Dari Rodgers MD ??? dextrose gel in packet 15 g 15 g oral Q15 Min PRN Dari Rodgers MD Or ??? dextrose (D10W) 10% bolus 250 mL 250 mL intravenous Q15 Min PRN Dari Rodgers MD ??? [START ON 01/17/2022] fluticasone propionate (FLONASE) 50 mcg/actuation nasal spray 2 spray 2 spray each nostril Daily Dari Rodgers MD ??? [Held by Provider] furosemide (LASIX) tablet 20 mg 20 mg oral Daily Dari Rodgers MD ??? gabapentin (NEURONTIN) capsule 100 mg 100 mg oral TID Dari Rodgers MD ??? glucagon injection 1 mg 1 mg intramuscular Q30 Min PRN Dari Rodgers MD ??? HYDROcodone-acetaminophen (NORCO) 5-325 mg per tablet 1 tablet 1 tablet oral TID PRN Dari Rodgers MD ??? [START ON 01/17/2022] insulin glargine (LANTUS, BASAGLAR, SEMGLEE) 100 unit/mL (3 mL) pen injection 35 Units 35 Units subcutaneous QAM Dari Rodgers MD ??? insulin lispro (HumaLOG, ADMELOG) 100 unit/mL pen injection 0-4 Units 0-4 Units subcutaneous Nightly Dari Rodgers MD ??? [START ON 01/17/2022] insulin lispro (HumaLOG, ADMELOG) 100 unit/mL pen injection 0-5 Units 0-5 Units subcutaneous TID with meals Dari Rodgers MD ??? magnesium hydroxide (MILK OF MAGNESIA) 80 mg/mL (33.3 mg/mL as elemental magnesium) oral suspension 30 mL 30 mL oral Daily PRN Lili Lujan MD ??? mineral oil (FLEET MINERAL OIL) enema 1 enema 1 enema rectal Daily PRN Lili Lujan MD ??? montelukast (SINGULAIR) tablet 10 mg 10 mg oral Nightly Dari Rodgers MD ??? ondansetron (ZOFRAN) injection 4 mg 4 mg intravenous Q4H PRN Lili Lujan MD ??? pantoprazole DR (PROTONIX) extended release tablet 40 mg 40 mg oral BID Dari Rodgers MD ??? sodium chloride 0.9% infusion 100 mL/hr intravenous Continuous Julita Lizarraga MD 100 mL/hr at 01/16/22 1823 100 mL/hr at 01/16/22 1823 Social History Tobacco Use ??? Smoking status: Never Smoker ??? Smokeless tobacco: Never Used Substance and Sexual Activity ??? Drug use: Never ??? Sexual activity: Defer Alcohol Use: Not At Risk ??? Frequency of Alcohol Consumption: Monthly or less ??? Average Number of Drinks: 1 or 2 ??? Frequency of Binge Drinking: Never Family History Problem Relation Age of Onset ??? Heart disease Father Heart disease; ??? Heart failure Father CHF; Cause of : CHF ??? Colon cancer Father ??? Diabetes Mother Diabetes mellitus; ??? Hypertension Mother Hypertension; ??? Diabetes Brother Diabetes mellitus; ??? Cancer Brother ??? Lymphoma Brother Cancer -lymphoma; ??? Stroke Brother ??? Hypertension Brother Review of Systems: 1. Constitutional Denies: weight loss, weight gain, fever, chills, night sweats, fatigue 2. Eyes Denies: change in vision, double vision, eye pain, eye discharge, icterus 3. ENT Denies: change in hearing, ear pain, ear discharge, nose bleed, nasal congestion, sore throat 4. Respiratory Denies: SOB, wheezing, cough, sputum, hemoptysis 5. CV Denies: chest pain, palpitations, syncope, edema, dyspnea 6. GI Denies: abdominal pain, decreased appetite, nausea, vomiting, change in bowel habitus, diarrhea, vomiting, constipation, melena, BRBPR 7. Denies: dysuria, frequency, hematuria, nocturia, urgency 8. Metabolic Denies: cold intolerance, heat intolerance, polyphagia, polydipsia 9. Neurologic Denies: headache, dizziness, seizure, change in mental status 10. Musculoskeletal As noted above 11. Hematologic Denies: bleeding, bruising, hematoma, lymphadenopathy, icterus OBJECTIVE Vitals: Arrival Vitals Temp 01/16/22 1154 36.6 ??C (97.9 ??F) Pulse 01/16/22 1154 90 Resp 01/16/22 1154 21 BP 01/16/22 1154 (!) 143/112 SpO2 01/16/22 1154 99 % Temp src 01/16/22 1154 Temporal Heart Rate Source 01/16/22 1300 Monitor Patient Position 01/16/22 1300 Lying BP Location 01/16/22 1629 Right arm FiO2 (%) -- 24hr Min/Max: Temp Min: 36.2 ??C (97.2 ??F) Max: 36.6 ??C (97.9 ??F) Pulse Min: 80 Max: 93 BP Min: 121/65 Max: 151/67 Resp Min: 16 Max: 21 SpO2 Min: 98 % Max: 100 % Most Recent : Vitals: 01/16/22 1629 BP: 142/66 Pulse: 85 Resp: 20 Temp: 36.2 ??C (97.2 ??F) SpO2: 100% No intake or output data in the 24 hours ending 01/16/222112 Physical exam: General: awake, alert, oriented to person, place, and time. No acute distress Eyes: no scleral icterus, extraocular motion is intact, pupils are equal Neck: supple Pharynx: No gross oral lesion, tongue midline, mucosa moist Lungs: clear to auscultation with no wheezes or rales Heart: normal rate, normal rhythm, normal s1 and s2 Abd: present bowel sounds, Non Tender, Non distended Extremities: +1 bilateral lower extremity edema, strength exam is 4/5 and symmetric, diminished sensation in bilateral feet, able to dorsi/plantarflex, +2 pedal pulses Back: right paraspinal lumbar tenderness Neuro: CN 2-12 is grossly intact, has no focal weakness Musculoskeletal: no gross joint erythema Psychiatric: normal affect and mood Lab/Radiology/Diagnostic Review: Recent Results (from the past 24 hour(s)) POCT glucose Collection Time: 01/16/22 8:51 PM Result Value Ref Range Glucose, POC 139 (H) 71 - 98 mg/dL CT Thoracic Spine WO Contrast Result Date: 01/16/2022 Narrative: EXAM DESCRIPTION: CT THORACIC SPINE WO CONTRAST REASON FOR STUDY: Back pain after fall this morning. TECHNIQUE: Axial images acquired through the thoracic spine without intravenous contrast. Images reviewed with lung, soft tissue and bone windows. Reconstructed coronal and sagittal MPR images reviewed. Images stored on PACS. Automated exposure control was used as a dose optimization technique for this examination. COMPARISON: CT lumbar spine 09/04/2021 CT chest 07/25/2014 FINDINGS: ALIGNMENT: Normal. VERTEBRAE: No fracture. Vertebral body height well-maintained. Mild diffuse thoracic spondylosis. DISC HEIGHT: Mild loss of intervertebral disc space height in the mid thoracic spine. HARDWARE: Osseous fusion in the cervical spine is only partially visualized. THORACIC DISCS T1-T12: No significant osseous spinal stenosis or neuroforaminal stenosis. SOFT TISSUES: Dependent opacities lungs likely represent areas of atelectasis. LOWER CERVICAL: Incompletely imaged. No significant osseous spinal stenosis or osseous foraminal stenosis. UPPER LUMBAR: Incompletely imaged. No significant osseous spinal or osseous neuroforaminal stenosis. OTHER: No other significant abnormality. IMPRESSION: 1. No acute fracture of the thoracic spine. 2. Mild diffuse thoracic spondylosis. THIS IS A N ELECTRONICALLY VERIFIED FINAL REPORT 01/16/2022 12:57 PM - Electronically signed by Néstor Davis M.D. LB: ARVIND Report ID: [id number] Reading Location: [place] [address] CT Lumbar Spine WO Contrast Result Date: 01/16/2022 Narrative: EXAM DESCRIPTION: CT LUMBAR SPINE WO CONTRAST REASON FOR STUDY: Back pain and weakness after fall today. TECHNIQUE: Axial images acquired through the lumbar spine without intravenous contrast. Reconstructed coronal and sagittal MPR images reviewed. All images stored on PACS. Automated exposure control was used as a dose optimization technique for this examination. COMPARISON: CT lumbarspine 09/04/2021 FINDINGS: SEGMENTATION: No transitional anatomy. The lowest well-developed disc space is labeled L5-S1. ALIGNMENT: Minimal dextroscoliosis of the lumbar spine. Grade 1 anterolisthesis of L4 on L5 is unchanged. VERTEBRAE: No fracture identified. Moderate diffuse lumbar spondylosis. Prominent Schmorl's node along the inferior endplate of L4. DISC HEIGHT: Minimal loss of intervertebral disc space height at L2-3, L3-4, L4-5. HARDWARE: None in the spine. INDIVIDUAL DISC LEVELS: Broad-based disc bulge at L2-3 causes mild spinal canal narrowing. Broad-based disc bulge at L3-4 causes mild spinal canal narrowing and mild left neural foraminal narrowing. Broad- based disc bulge at L4-5 causes moderate to severe spinal canal narrowing. Prior left laminectomy at L4. Severe left and moderate right neural foraminal narrowing at L4-5. Broad-based disc bulge at L5-S1 causes mild spinal canal narrowing. There is severe right and moderate left neural foraminal narrowing at L5-S1. VISUALIZED RIBS: No fractures. SOFT TISSUES: No significant or acute finding in adjacent soft tissues. OTHER: No other significant finding. IMPRESSION: No acute fracture of the lumbar spine. Moderate to severe lumbar spondylosis. Evaluation of the spinal canal contents is limited on noncontrast CT. THIS IS AN ELECTRONICALLY VERIFIED FINAL REPORT 01/16/2022 1:06 PM - Electronically signed by Néstor Davis M.D. LB: ARVIND Report ID: [id number] Reading Location: [place] [address] A/P Weakness of both lower extremities Acute on chronic lower back pain -has moderate to severe lumbar spondylosis and diffuse thoracic spondylosis -pending mri spine -norco prn pain -PT/OT DM with neuropathy -on daily lantus and humalog sliding scale -neurontin 100mg tid CKD 4 -renal function is at baseline HTN -on lasix and clonidine BID GERD -on protonix BID Bilateral lower extremity swelling -doppler to rule out dvt Anticipated length of stay is greater than 2 midnights Moderate complexity Dari Rodgers MD Date of Service: 01/16/2022 documented in this encounter Consult Notes * Altaf Bragg MD - 01/17/2022 4:13 PM CDTAssociated Order(s): IP CONSULT TO NEUROLOGY Consult Subjective Patient is a 71 y.o. female with chief complaint of lower extremity weakness. HPI: Patient was brought to ER yesterday after a fall. She reported that her legs gave out. She did not pass out. No associated dizziness. She reported that the last time she worked like normal person wasabout 3-4 months ago. She started to used cane about 3-4 months ago because of poor balance and slight leg weakness. It also helped her chronic back pain. In the past 4-5 weeks, her leg weakness got worse. She fell multiple times. No incontinence of bladder or bowel. Past Medical History: Diagnosis Date ??? Benign hypertension with CKD (chronic kidney disease) stage III (HCC) ??? Gastroesophageal reflux disease GERD ??? HX OTHER MEDICAL PMO ??? 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 HX OTHER MEDICAL [facility] OA ??? HX OTHER MEDICAL 2008 Discectomy, cervical ??? HX OTHER MEDICAL Fall ??? HX OTHER MEDICAL Left proximal femoral Gamma Nail fixation proximal; Comments: [facility] 07/25/2015 - ??? HX OTHER MEDICAL RTKR 2001.; Comments: [facility] 07/25/2015 - ??? HX OTHER MEDICAL LTKR 2005.; Comments: [facility] 07/25/2015 - ??? HX OTHER MEDICAL Back surgery 2006.; Comments: [facility] 07/25/2015 - ??? HX OTHER MEDICAL Cervical disc surg. 2008.; Comments: [facility] 07/25/2015 - ??? HX OTHER MEDICAL Breast reduction 2009.; Comments: [facility] 07/25/2015 - ??? HX OTHER MEDICAL left hip and leg surgery ??? HX OTHER MEDICAL conversion of previous hip arthroplasty left hip; Comments: [facility] unit 02/06 - 02/17/16 for [...] Fall: Medical Management ??? OTHER SURGICAL HISTORY 2016 conversion of previous hip arthroplasty left hip: Conversion of Arthroplasty left hip ??? REDUCTION MAMMAPLASTY Bilateral 2008 ??? TONSILLECTOMY tonsillectomy No Known Allergies Medications Prior to Admission Medication Sig Dispense Refill Last Dose ??? albuterol HFA (PROVENTIL HFA,VENTOLIN HFA) 90 mcg/actuation inhaler Inhale 2 puffs every 6 (six) hours as needed for wheezing. 01/15/2022 at Unknown time ??? alendronate (FOSAMAX) 70 mg tablet TAKE 1 TABLET BY MOUTH ONE TIME PER WEEK 12 tablet 2 01/15/2022 at Unknown time ??? aspirin 81 mg enteric coated tablet Take 81 mg by mouth daily 01/15/2022 at Unknown time ??? blood glucose diagnostic ([employer] Next Test Strips) strip Test blood sugar 3 times a day and will montior response. Dx: E11.22. 300 each 3 01/15/2022 at Unknown time ??? blood-glucose meter ([employer] NEXT USB METER) misc test as directed 1 each 0 01/15/2022 at Unknowntime ??? calcium carbonate-vitamin D3 500 mg(1,250mg) -400 unit tablet Take one by mouth two times per day 0 0 01/15/2022 at Unknown time ??? cloNIDine (CATAPRES) 0.1 mg tablet TAKE 1/2 TABLET BY MOUTH TWO TIMES A DAY 90 tablet 1 01/15/2022 at Unknown time ??? cyclobenzaprine (FLEXERIL) 10 mg tablet Take 1 tablet (10 mg total) by mouth nightly as needed for muscle spasms 30 tablet 2 ??? fluticasone propionate (FLONASE) 50 mcg/actuation nasal spray SPRAY 2 SPRAYS INTO EACH NOSTRIL EVERY DAY 48 mL 1 01/15/2022 at Unknown time ??? furosemide (LASIX) 20 mg tablet TAKE 1 TABLET BY MOUTH EVERY DAY 90 tablet 1 01/15/2022 at Unknown time ??? gabapentin (NEURONTIN) 100 mg capsule Take 1 capsule (100 mg total) by mouth 3 (three) times a day 90 capsule 11 01/15/2022 at Unknown time ??? glipiZIDE (GLUCOTROL) 5 mg tablet Take 0.5 tablets (2.5 mg total) by mouth daily as needed (with largest meal of the day) 45 tablet 1 01/15/2022 at Unknown time ??? HYDROcodone-acetaminophen (NORCO) 5-325 mg per tablet Take 1 tablet by mouth 3 (three) times a day as needed for pain 90 tablet 0 01/15/2022 at Unknown time ??? [START ON 01/27/2022] HYDROcodone-acetaminophen (NORCO) 5-325 mg per tablet Take 1 tablet by mouth 3 (three) times a day as needed for pain 90 tablet 0 01/15/2022 at Unknown time ??? lancets (MICROLET LANCET) misc test by fingerstick route 3 times daily 300 each 3 01/15/2022 at Unknown time ??? LANTUS 100 unit/mL (3 mL) pen for injection INJECT 48 UNITS SUBCUTANEOUSLY DAILY 30 mL 5 01/15/2022 at Unknown time ??? montelukast (SINGULAIR) 10 mg tablet TAKE 1 TABLET BY MOUTH EVERYDAY AT BEDTIME 90 tablet 1 01/15/2022 at Unknown time ??? naloxone (NARCAN) 4 mg/actuation spray,non-aerosol Administer 1 spray into affected nostril(s) as needed for opioid reversal 1 each 0 Unknown at Unknown time ??? NovoLOG 100 unit/mL (3 mL) pen for injection INJECT 32 UNITS UNDER THE SKIN 3 (THREE) TIMES A DAY BEFORE MEALS 84 mL 2 01/15/2022 at Unknown time ??? pantoprazole DR (PROTONIX) 40 mg EC tablet TAKE 1 TABLET BY MOUTH TWICE A DAY 180 tablet 1 01/15/2022 at Unknown time ??? pen needle, diabetic (BD Ultra-Fine Mini Pen Needle) 31 gauge x 3/16 needle 1 needle as directed 300 each 3 01/15/2022 at Unknown time ??? simvastatin (ZOCOR) 40 mg tablet TAKE 1 TABLET BY MOUTH EVERY DAY AT NIGHT 90 tablet 1 2at Unknown time Family History Problem Relation Age of Onset ??? Heart disease Father Heart disease; ??? Heart failure Father CHF; Cause of : CHF ??? Colon cancer Father ??? Diabetes Mother Diabetes mellitus; ??? Hypertension Mother Hypertension; ??? Diabetes Brother Diabetes mellitus; ??? Cancer Brother ??? Lymphoma Brother Cancer -lymphoma; ??? Stroke Brother ??? Hypertension Brother Social History Tobacco Use ??? Smoking status: Never Smoker ??? Smokeless tobacco: Never Used Substance and Sexual Activity ??? Drug use: Never ??? Sexual activity: Defer Alcohol Use: Not At Risk ??? Frequency of Alcohol Consumption: Monthly or less ??? Average Number of Drinks: 1 or 2 ??? Frequency of Binge Drinking: Never Review of Systems: Constitutional: No weight loss/gain, Fatigue, excessive sweating, fever, chills HEENT: No headache/migraine, hearing loss,change in vision, cataracts Respiratory: No trouble breathing, coughing/wheezing, asthma, snoring Muscle skeletal: No joint pain, muscle pain, back pain, neck pain, limb pain Cardiovascular: No chest pain, palpitations, irregular heart beat, passing out, fainting Vascular: NoTingling, numbness, swelling, discoloration of the extremities Gastrointestinal: No nausea, vomiting, diarrhea, abdominal pain Neurologic: No tremors, has bilateral lower extremity weakness, no numbness, has changes in gait, no changes in memory Genitourinary: No painful urination, difficulty urination, frequent urination, urinary incontinence, discoloration of urine Reproductive: No hot flash, changes in libido, sexual transmitted disease Metabolic/Endocrine: No sensitivity to heat/cold, abnormal sleep pattern, skin change No hot flash. Psychiatric: No anxiety, depression, mood swings Objective Vitals: 24hr Min/Max: Temp Min: 36.3 ??C (97.4 ??F) Max: 36.7 ??C (98 ??F) Pulse Min: 69 Max: 80 BP Min: 120/89 Max: 168/67 Resp Min: 16 Max: 20 SpO2 Min: 98 % Max: 100 % Most Recent: Vitals: 01/17/22 1500 BP: 154/70 Pulse: 80 Resp: 18 Temp: 36.7 ??C (98 ??F) SpO2: 98% Physical Exam: Constitutional: well-developed, well-nourished and in no acute stress. Head/Neck: atraumatic, no deformity or stiffness of neck Ears, Nose, Mouth and Throat: No ear tenderness, rhinorrhea, dry mouth or redness of throat. Eyes: Conjunctiva is clear. Sclera normal in color. Eyelid is normal Cardiovascular: S1, S2 are regular. No rubs or gallops Respiratory: clear bilaterally. No rales or wheezing. Adequate air entry Musculoskeletal: no atrophy, Tenderness or abnormal movement Extremities: no edema, cyanosis or deformities Skin: no rashes or lesions. No discoloration. Psychiatric: normal mood and affect. Judgment and insight appear intact Mental status: alert, speech fluent, comprehension intact, follow command appropriately Cranial nerve: KEREN, corneal reflex present. EOMI, VFF by confrontation method. Facial sensations symmetrical. Face symmetrical. Motor: bulk normal, tone normal, pronator drift negative. Strength 5/5 upper extremities, 3/5 with bilateral hip flexion, 4/5 with bilateral UE flexion and extension, 4+/5 with bilateral ankle dorsiflexion and plantar flexion. No abnormal movement. Reflexes: Biceps 2+ b/l, Knee reflex 2+ b/l, Achilles reflex 1+ b/l. plantar downward b/l. Sensation: LT Normal and symmetrical. Gait: not assessed Lab/Radiology/Diagnostic Review: 1. 01/17/2022 MRI of cervical spine: High-degree spinal stenosis at C7-T1 level with cord impingement. I reviewed the image. 2. 01/17/2022 MRI of thoracic spine and the lumbar spine: Moderate to severe spinal stenosis and severe bilateral foraminal stenosis at as L4 -5 level. Moderate stenosis at L3-4 level. I reviewed the image. 3. 12/22/2015 EKG: Sinus rhythm. HR 87. 4. 01/17/2022 BMP normal except creatinine 2.21. CBC unremarkable. Assessment /Plan Principal Problem: Weakness of both lower extremities Active Problems: CKD (chronic kidney disease) stage 4, GFR 15-29 ml/min ([facility]) ([facility]) Type 2 diabetes mellitus with diabetic neuropathy, with long-term current use of insulin ([facility]) ([facility]) Chronic back pain This is a 71 years old patient who was brought to the hospital after a fall. Patient has been having subacute bilateral lower extremity weakness in the past 3-4 months, but worsening weakness in the past few weeks. MRI of cervical spine showed high-degree spinal stenosis with cord impingement at C7-T1 level. Recommendation: 1. Transfer the patient to [place] [facility] for possible surgical treatment. 2. Communicated recommendation with Dr. Jin. Altaf Bragg MD 01/17/2022 5:56 PM * Osmin Paige MD - 01/17/2022 8:55 AM CDTAssociated Order(s): IP CONSULT TO NEPHROLOGY Nephrology Consult Reason for Consult: CKD (requests to see Dr Paige and jonathan in AM) Requesting Provider: shreyas HANNNO Patient is a 71 y.o. female with chief complaint of dorina. Consult requested by: same Reason for consult: CKD (requests to see Dr Paige and jonathan in AM) HPI: History of Present Illness: Patient is a 71 y.o. year old,White female with a history of Past Medical History: Diagnosis Date ??? Benign hypertension with CKD (chronic kidney disease) stage III (HCC) ??? Gastroesophageal reflux disease GERD ??? HX OTHER MEDICAL PMO ??? 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 HX OTHER MEDICAL [facility] OA ??? HX OTHER MEDICAL 2008 Discectomy, cervical ??? HX OTHER MEDICAL Fall ??? HX OTHER MEDICAL Left proximal femoral Gamma Nail fixation proximal; Comments: [facility] 07/25/2015 - ??? HX OTHER MEDICAL RTKR 2001.; Comments: [facility] 07/25/2015 - ??? HX OTHER MEDICAL LTKR 2006.; Comments: [facility] 07/25/2015 - ??? HX OTHER MEDICAL Back surgery 2007.; Comments: [facility] 07/25/2015 - ??? HX OTHER MEDICAL Cervical disc surg. 2008.; Comments: [facility] 07/25/2015 - ??? HX OTHER MEDICAL Breast reduction 2009.; Comments: [facility] 07/25/2015 - ??? HX OTHER MEDICAL left hip and leg surgery ??? HX OTHER MEDICAL conversion of previous hip arthroplasty left hip; Comments: [facility] 02/06 - 02/17/16 for [...] with stage 3 chronic kidney disease (HCC) , who comes in today for evaluation. The patient's present problem has been present for 4 days. Thepatient has not had NSAID usage.contrast exposure, nephrotoxic medication exposure, recurrent stones, recurrent UTIs, uncontrolled blood pressure and uncontrolled diabetes , which may have contributed to the patient's current illness. The patient reports no nausea and no vomiting,no diarrhea , no shortness of breath, no chest pain,no itching, today. Past Medical History: Diagnosis Date ??? Benign hypertension with CKD (chronic kidney disease) stage III (HCC) ??? Gastroesophageal reflux disease GERD ??? HX OTHER MEDICAL PMO ??? 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 HX OTHER MEDICAL [facility] OA ??? HX OTHER MEDICAL 2008 Discectomy, cervical ??? HX OTHER MEDICAL Fall ??? HX OTHER MEDICAL Left proximal femoral Gamma Nail fixation proximal; Comments: [facility] 07/25/2015 - ??? HX OTHER MEDICAL RTKR 2001.; Comments: [facility] 07/25/2015 - ??? HX OTHER MEDICAL LTKR 2006.; Comments: [facility] 07/25/2015 - ??? HX OTHER MEDICAL Back surgery 2007.; Comments: [facility] 07/25/2015 - ??? HX OTHER MEDICAL Cervical disc surg. 2008.; Comments: [facility] 07/25/2015 - ??? HX OTHER MEDICAL Breast reduction 2009.; Comments: [facility] 07/25/2015 - ??? HX OTHER MEDICAL left hip and leg surgery ??? HX OTHER MEDICAL conversion of previous hip arthroplasty left hip; Comments: [facility] unit 02/06 - 02/17/16 for [...] Fall: Medical Management ??? OTHER SURGICAL HISTORY 2016 conversion of previous hip arthroplasty left hip: Conversion of Arthroplasty left hip ??? REDUCTION MAMMAPLASTY Bilateral 2008 ??? TONSILLECTOMY tonsillectomy Medications Prior to Admission Medication Sig Dispense Refill Last Dose ??? albuterol HFA (PROVENTIL HFA,VENTOLIN HFA) 90 mcg/actuation inhaler Inhale 2 puffs every 6 (six) hours as needed for wheezing. 01/15/2022 at Unknown time ??? alendronate (FOSAMAX) 70 mg tablet TAKE 1 TABLET BY MOUTH ONE TIME PER WEEK 12 tablet 2 01/15/2022 at Unknown time ??? aspirin 81 mg enteric coated tablet Take 81 mg by mouth daily 01/15/2022 at Unknown time ??? blood glucose diagnostic ([employer] Next Test Strips) strip Test blood sugar 3 times a day and will montior response. Dx: E11.22. 300 each 3 01/15/2022 at Unknown time ??? blood-glucose meter ([employer] NEXT USB METER) misc test as directed 1 each 0 01/15/2022 at Unknowntime ??? calcium carbonate-vitamin D3 500 mg(1,250mg) -400 unit tablet Take one by mouth two times per day 0 0 01/15/2022 at Unknown time ??? cloNIDine (CATAPRES) 0.1 mg tablet TAKE 1/2 TABLET BY MOUTH TWO TIMES A DAY 90 tablet 1 01/15/2022 at Unknown time ??? cyclobenzaprine (FLEXERIL) 10 mg tablet Take 1 tablet (10 mg total) by mouth nightly as needed for muscle spasms 30 tablet 2 ??? fluticasone propionate (FLONASE) 50 mcg/actuation nasal spray SPRAY 2 SPRAYS INTO EACH NOSTRIL EVERY DAY 48 mL 1 01/15/2022 at Unknown time ??? furosemide (LASIX) 20 mg tablet TAKE 1 TABLET BY MOUTH EVERY DAY 90 tablet 1 01/15/2022 at Unknown time ??? gabapentin (NEURONTIN) 100 mg capsule Take 1 capsule (100 mg total) by mouth 3 (three) times a day 90 capsule 11 01/15/2022 at Unknown time ??? glipiZIDE (GLUCOTROL) 5 mg tablet Take 0.5 tablets (2.5 mg total) by mouth daily as needed (with largest meal of the day) 45 tablet 1 01/15/2022 at Unknown time ??? HYDROcodone-acetaminophen (NORCO) 5-325 mg per tablet Take 1 tablet by mouth 3 (three) times a day as needed for pain 90 tablet 0 01/15/2022 at Unknown time ??? [START ON 01/27/2022] HYDROcodone-acetaminophen (NORCO) 5-325 mg per tablet Take 1 tablet by mouth 3 (three) times a day as needed for pain 90 tablet 0 01/15/2022 at Unknown time ??? lancets (MICROLET LANCET) misc test by fingerstick route 3 times daily 300 each 3 01/15/2022 at Unknown time ??? LANTUS 100 unit/mL (3 mL) pen for injection INJECT 48 UNITS SUBCUTANEOUSLY DAILY 30 mL 5 01/15/2022 at Unknown time ??? montelukast (SINGULAIR) 10 mg tablet TAKE 1 TABLET BY MOUTH EVERYDAY AT BEDTIME 90 tablet 1 01/15/2022 at Unknown time ??? naloxone (NARCAN) 4 mg/actuation spray,non-aerosol Administer 1 spray into affected nostril(s) as needed for opioid reversal 1 each 0 Unknown at Unknown time ??? NovoLOG 100 unit/mL (3 mL) pen for injection INJECT 32 UNITS UNDER THE SKIN 3 (THREE) TIMES A DAY BEFORE MEALS 84 mL 2 01/15/2022 at Unknown time ??? pantoprazole DR (PROTONIX) 40 mg EC tablet TAKE 1 TABLET BY MOUTH TWICE A DAY 180 tablet 1 01/15/2022 at Unknown time ??? pen needle, diabetic (BD Ultra-Fine Mini Pen Needle) 31 gauge x 3/16 needle 1 needle as directed 300 each 3 01/15/2022 at Unknown time ??? simvastatin (ZOCOR) 40 mg tablet TAKE 1 TABLET BY MOUTH EVERY DAY AT NIGHT 90 tablet 1 2at Unknown time No Known Allergies Social History Tobacco Use ??? Smoking status: Never Smoker ??? Smokeless tobacco: Never Used Substance and Sexual Activity ??? Drug use: Never ??? Sexual activity: Defer Alcohol Use: Not At Risk ??? Frequency of Alcohol Consumption: Monthly or less ??? Average Number of Drinks: 1 or 2 ??? Frequency of Binge Drinking: Never Family History Problem Relation Age of Onset ??? Heart disease Father Heart disease; ??? Heart failure Father CHF; Cause of : CHF ??? Colon cancer Father ??? Diabetes Mother Diabetes mellitus; ??? Hypertension Mother Hypertension; ??? Diabetes Brother Diabetes mellitus; ??? Cancer Brother ??? Lymphoma Brother Cancer -lymphoma; ??? Stroke Brother ??? Hypertension Brother Review of Systems:Review of Systems OBJECTIVEBEGIN Vitals: 24hr Min/Max: Temp Min: 36.2 ??C (97.2 ??F) Max: 36.6 ??C (97.9 ??F) Pulse Min: 69 Max: 93 BP Min: 121/65 Max: 168/67 Resp Min: 16 Max: 21 SpO2 Min: 98 % Max: 100 % Most Recent: Vitals: 01/17/22 0700 BP: 168/67 Pulse: 75 Resp: 20 Temp: 36.6 ??C (97.9 ??F) SpO2: 100% I/O last 2 completed shifts: In: 908.3 [P.O.:200; I.V.:708.3] Out: 1000 [Urine:1000] I/O this shift: In: 240 [P.O.:240] Out: - Lab/Radiology/Diagnostic Review: Laboratory review: Lab results in the last 24 hours: Recent Results (from the past 24 hour(s)) POCT glucose Collection Time: 01/16/22 8:51 PM Result Value Ref Range Glucose, POC 139 (H) 71 - 98 mg/dL Basic metabolic panel Collection Time: 01/16/22 9:21 PM Result Value Ref Range Sodium 141 135 - 145 mmol/L Potassium, pl 4.5 3.3 - 4.9 mmol/L Chloride 104 97 - 110 mmol/L CO2 26 22 - 32 mmol/L Anion gap 11 2 - 15 mmol/L BUN 23 8 - 25 mg/dL Creatinine 2.21 (H) 0.60 - 1.10 mg/dL Glucose 163 70 - 199 mg/dL Calcium 9.2 8.5 - 10.3 mg/dL CBC with auto differential Collection Time: 07/06/22 9:21 PM Result Value Ref Range WBC 10.4 (H) 3.8 - 9.9 K/cumm Hgb 11.3 (L) 11.9 - 15.5 g/dL Hct 34.3 (L) 35.6 - 45.5 % Plt 195 150 - 400 K/cumm MPV 9.9 9.1 - 12.3 fL RBC 3.79 (L) 3.90 - 5.20 M/cumm MCV 90.5 81.3 - 96.4 fL MCH 29.8 27.1 - 33.3 pg MCHC 32.9 32.3 - 35.7 g/dL RDW CV 15.0 (H) 11.1 - 14.9 % RDW SD 49.8 (H) 35.7 - 48.1 fL NRBC abs 0.00 0.00 - 0.01 K/cumm Magnesium Collection Time: 01/16/22 9:21 PM Result Value Ref Range Magnesium 2.1 1.4 - 2.5 mg/dL Phosphorus Collection Time: 01/16/22 9:21 PM Result Value Ref Range Phosphorus, pl 4.4 2.3 - 4.5 mg/dL Hepatic function panel Collection Time: 01/16/22 9:21 PM Result Value Ref Range Bilirubin, total 0.6 0.1 - 1.2 mg/dL Bilirubin, direct <0.2 0.1 - 0.3 mg/dL Protein, pl 6.3 (L) 6.5 - 8.5 g/dL Albumin 3.4 (L) 3.5 - 5.0 g/dL Alk phos 69 40 - 130 Units/L ALT 18 7 - 45 Units/L AST 17 10 - 45 Units/L Differential, auto Collection Time: 01/16/22 9:21 PM Result Value Ref Range Neutrophil abs 7.5 (H) 1.7 - 6.5 K/cumm Imm gran abs 0.1 0.0 - 0.1 K/cumm Lymphocyte abs 1.7 0.8 - 3.3 K/cumm Monocyte abs 0.9 (H) 0.2 - 0.8 K/cumm Eosinophil abs 0.1 0.0 - 0.5 K/cumm Basophil abs 0.1 0.0 - 0.1 K/cumm Neutrophil pct 72.2 % Imm gran pct 0.7 % Lymphocyte pct 16.7 % Monocyte pct 8.8 % Eosinophil pct 0.9 % Basophil pct 0.7 % eGFR Collection Time: 01/16/22 9:21 PM Result Value Ref Range eGFR 23 mL/min/1.73 m2 Urinalysis reflex to microscopic and culture Urine Collection Time: 01/16/22 10:35 PM Specimen: Urine Result Value Ref Range Color, ur Yellow Yellow Clarity, ur Clear Clear Specific gravity, ur 1.007 1.003 - 1.030 pH, urine 6.0 Protein, ur ql Negative Negative Glucose, ur ql 1+ (A) Negative Ketones, ur Negative Negative Bilirubin, ur Negative Negative Blood, ur Negative Negative Urobilinogen, ur <2.0 <2.0 mg/dL Nitrite, ur Negative Negative Leukocyte esterase, ur Negative Negative UA reflex comment Reflex conditions for microscopic UA and culture not met. POCT glucose Collection Time: 01/17/22 2:08 AM Result Value Ref Range Glucose, POC 134 (H) 71 - 98 mg/dL CBC with auto differential Collection Time: 01/17/22 3:12 AM Result Value Ref Range WBC 9.7 3.8 - 9.9 K/cumm Hgb 10.6 (L) 11.9 - 15.5 g/dL Hct 33.5 (L) 35.6 - 45.5 % Plt 191 150 - 400 K/cumm MPV 10.6 9.1 - 12.3 fL RBC 3.57 (L) 3.90 - 5.20 M/cumm MCV 93.8 81.3 - 96.4 fL MCH 29.7 27.1 - 33.3 pg MCHC 31.6 (L) 32.3 - 35.7 g/dL RDW CV 14.9 11.1 - 14.9 % RDW SD 51.5 (H) 35.7 - 48.1 fL NRBC abs 0.00 0.00 - 0.01 K/cumm Comprehensive metabolic panel Collection Time: 01/17/22 3:12 AM Result Value Ref Range Sodium 142 135 - 145 mmol/L Potassium, pl 4.2 3.3 - 4.9 mmol/L Chloride 106 97 - 110 mmol/L CO2 24 22 - 32 mmol/L Anion gap 12 2 - 15 mmol/L BUN 23 8 - 25 mg/dL Creatinine 1.99 (H) 0.60 - 1.10 mg/dL Glucose 157 70 - 199 mg/dL Calcium 9.1 8.5 - 10.3 mg/dL Bilirubin, total 0.5 0.1 - 1.2 mg/dL Protein, pl 6.0 (L) 6.5 - 8.5 g/dL Albumin 3.2 (L) 3.5 - 5.0 g/dL Alk phos 66 40 - 130 Units/L ALT 17 7 - 45 Units/L AST 15 10 - 45 Units/L Differential, auto Collection Time: 01/17/22 3:12 AM Result Value Ref Range Neutrophil abs 6.7 (H) 1.7 - 6.5 K/cumm Imm gran abs 0.1 0.0 - 0.1 K/cumm Lymphocyte abs 1.8 0.8 - 3.3 K/cumm Monocyte abs 0.9 (H) 0.2 - 0.8 K/cumm Eosinophil abs 0.1 0.0 - 0.5 K/cumm Basophil abs 0.1 0.0 - 0.1 K/cumm Neutrophil pct 69.5 % Imm gran pct 0.8 % Lymphocyte pct 18.6 % Monocyte pct 9.5 % Eosinophil pct 1.1 % Basophil pct 0.5 % eGFR Collection Time: 01/17/22 3:12 AM Result Value Ref Range eGFR 26 mL/min/1.73 m2 POCT glucose Collection Time: 01/17/22 7:54 AM Result Value Ref Range Glucose, POC 139 (H) 71 - 98 mg/dL Imaging review: I have reviewed the result(s) yes Additional Labs: CBC/Dif: Lab Results Component Value Date WBC 9.7 01/17/2022 NEUTOPHILPCT 69.5 01/17/2022 RBC 3.57 (L) 01/17/2022 HCT 33.5 (L) 01/17/2022 MCV 93.8 01/17/2022 MPV 10.6 01/17/2022 RDWCV 14.9 01/17/2022 RDWSD 51.5 (H) 01/17/2022 NRBCABS 0.00 01/17/2022 NEUTROABS 6.7 (H) 01/17/2022 LYMPHSABS 1.8 01/17/2022 MONOPCT 9.5 01/17/2022 EOSPCT 1.1 01/17/2022 EOSABS 0.1 01/17/2022 Renal Function Panel: Lab Results Component Value Date GLUCOSE 139 (H) 01/17/2022 GLUCOSE 157 01/17/2022 POTASSIUM 4.2 01/17/2022 CO2 24 01/17/2022 CALCIUM 9.1 01/17/2022 CHLORIDE 106 01/17/2022 PHOS 4.4 01/16/2022 ALBUMIN 3.2 (L) 01/17/2022 BUNSER 23 01/17/2022 CREATININE 1.99 (H) 01/17/2022 ANIONGAP 12 01/17/2022 Urine Chemistry: Lab Results Component Value Date GLUCOSEU 1+ (A) 06/17/2016 PROTUR 5.0 06/20/2021 CREATUR 58.20 03/20/2017 ALBUMINUR 25.6 04/05/2020 Ua: Lab Results Component Value Date SPECGRAVU 1.007 01/16/2022 PHURINE 6.0 01/16/2022 LEUKESTUR Negative 01/16/2022 NITRITEU Negative 01/16/2022 KETONESU Negative 01/16/2022 Ua Micro: No results found for: RBCU, WBCU, EPIU, YEASTU, RBCCASTU, WBCCASTU, BROADCASTU, FATCASTU,GRANCASTU, EPICASTU, HYALCASTU, MIXCASTU, WAXCASTU, AMORPHCRYU, CACARBCRYU, CAOXALCRU, CAPHOSCRYU, CYSCRYU, LEUCRYU, TRIPHOCRYU, TYRCRYU, URATECRYU, BILICRYU, TRANSEPIU, MICROALBUR, RENEPIU, BACTERIAU 24 Hour Urine: Lab Results Component Value Date URINEVOLUME 1,375 06/20/2021 [id number] 1.1 06/20/2021 CREATUR 58.20 03/20/2017 CRCLEARANCE 34 (L) 06/20/2021 Assessment /Plan Principal Problem: Weakness of both lower extremities Active Problems: CKD (chronic kidney disease) stage 4, GFR 15-29 ml/min ([facility]) ([facility]) Type 2 diabetes mellitus with diabetic neuropathy, with long-term current use of insulin ([facility]) ([facility]) Chronic back pain [id number], with DORINA, already resolved. No serious electrolyte abnormalities or fluid excess. Will follow. documented in this encounter Nursing Notes * Tanya Mendez RN - 01/18/2022 4:51 PM CDT Pt. is being [facility] [place]. Report was called to [facility]. IV access wasremoved. She has a friend who will take her there by vehicle. documented in this encounter ED Notes * Julita Lizarraga MD - 01/16/2022 3:24 PM CDT HPI No chief complaint on file. 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 The patient states she has been having trouble with her back for years and it seems to be getting worse. She states she has difficulty getting around at home. Today when she tried to get out of bed her legs turned outward and gave out and she fell. She had to scoot to the phone to call for help. She denies scrotal numbness she denies pain radiating into her legs she denies urinary retention denies urinary incontinence denies incontinence of stool. She walks with a walker at home. She denies head trauma LOC or other injuryfrom the fall today. Patient History: Patient Active Problem List Diagnosis Date Noted ??? Weakness of both lower extremities 01/16/2022 ??? Lumbar radiculopathy 12/06/2021 ??? Sacroiliitis (HCC) 09/07/2021 ??? Cervicalgia 09/07/2021 ??? Chronic right-sided low back pain without sciatica 09/07/2021 ??? Insomnia secondary to chronic pain 09/07/2021 ??? Degenerative cervical spinal stenosis 09/07/2021 ??? Degenerative disc disease, cervical 09/07/2021 ??? CKD (chronic kidney disease) stage 4, GFR 15-29 ml/min ([facility]) ([facility]) 08/23/2021 ??? Morbid (severe) obesity due to excess calories ([facility]) 08/22/2021 ??? DDD (degenerative disc disease), lumbar [...] of colon 04/08/2015 ??? Sarcoidosis of lung ([facility]) ([facility]) 04/08/2015 ??? Fever 08/25/2014 ??? Type 2 diabetes mellitus with stage 3 chronic kidney disease, with long-term current use of insulin ([facility]) 11/27/2013 ??? Class 2 severe obesity due to excess calories with serious comorbidity and body mass index (BMI) of 37.0 to 37.9 in adult ([facility]) 11/27/2013 ??? Hyperlipidemia 04/01/2012 ??? Disorder of peripheral nervous system ([facility]) 04/01/2012 ??? Hypertension associated with diabetes ([facility]) 04/01/2012 Past Medical History: Diagnosis Date ??? Benign hypertension with CKD (chronic kidney disease) stage III ([facility]) ??? Gastroesophageal reflux disease GERD ??? HX OTHER MEDICAL PMO ??? 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 HX OTHER MEDICAL [facility] OA ??? HX OTHER MEDICAL 2008 Discectomy, cervical ??? HX OTHER MEDICAL Fall ??? HX OTHER MEDICAL Left proximal femoral Gamma Nail fixation proximal; Comments: [facility] 07/25/2015 - ??? HX OTHER MEDICAL RTKR 2001.; Comments: [facility] 07/25/2015 - ??? HX OTHER MEDICAL LTKR 2006.; Comments: [facility] 07/25/2015 - ??? HX OTHER MEDICAL Back surgery 2007.; Comments: [facility] 07/25/2015 - ??? HX OTHER MEDICAL Cervical disc surg. 2008.; Comments: [facility] 07/25/2015 - ??? HX OTHER MEDICAL Breast reduction 2009.; Comments: [facility] 07/25/2015 - ??? HX OTHER MEDICAL left hip and leg surgery ??? HX OTHER MEDICAL conversion of previous hip arthroplasty left hip; Comments: [facility] unit 02/06 - 02/17/16 for [...] 2001 R TKA ??? OTHER SURGICAL HISTORY 2007 back surgery - microdecompression Lumbar ??? OTHER SURGICAL HISTORY Fall: Medical Management ??? OTHER SURGICAL HISTORY 2015 conversion of previous hip arthroplasty left hip: Conversion of Arthroplasty left hip ??? REDUCTION MAMMAPLASTY Bilateral 2008 ??? TONSILLECTOMY tonsillectomy Family History Problem Relation Age of Onset ??? Heart disease Father Heart disease; ??? Heart failure Father CHF; Cause of : CHF ??? Colon cancer Father ??? Diabetes Mother Diabetes mellitus; ??? Hypertension Mother Hypertension; ??? Diabetes Brother Diabetes mellitus; ??? Cancer Brother ??? Lymphoma Brother Cancer -lymphoma; ??? Stroke Brother ??? Hypertension Brother Social History Tobacco Use ??? Smoking status: Never Smoker ??? Smokeless tobacco: Never Used Substance and Sexual Activity ??? Drug use: Never ??? Sexual activity: Defer Alcohol Use: Not on file Alcohol Use: Not on file Social History Social History Narrative ??? Not on file Review of Systems Review of Systems Constitutional: Negative. Negative for activity change, appetite change, chills, diaphoresis, fatigue and fever. HENT: Negative. Negative for congestion, drooling, rhinorrhea and sore throat. Eyes: Negative. Negative for photophobia, redness and visual disturbance. Respiratory: Negative. Negative for cough, chest tightness and shortness of breath. Cardiovascular: Negative. Negative for chest pain, palpitations and leg swelling. Gastrointestinal: Negative. Negative for abdominal pain, anal bleeding, blood in stool, constipation, diarrhea, nausea and vomiting. Endocrine: Negative. Genitourinary: Negative. Negative for decreased urine volume, difficulty urinating, dysuria, frequency, hematuria and urgency. Musculoskeletal: Negative. Negative for arthralgias and myalgias. Weakness legs Skin: Negative. Negative for rash and wound. Allergic/Immunologic: Negative for immunocompromised state. Neurological: Negative. Negative for dizziness, weakness and headaches. Hematological: Negative. Does not bruise/bleed easily. Psychiatric/Behavioral: Negative. Negative for confusion. All other systems reviewed and are negative. Physical Exam ED Triage Vitals Temp Pulse Resp BP SpO2 01/16/22 1154 01/16/22 1154 01/16/22 1154 01/16/22 1154 01/16/22 1154 36.6 ??C (97.9 ??F) 90 21 (!) 143/112 99 % Temp src Heart Rate Source Patient Position BP Location FiO2 (%) 01/16/22 1154 01/16/22 1300 01/16/22 1300 -- -- Temporal Monitor Lying Height Height Method Weight Weight Method 01/16/22 1151 -- 01/16/22 1151 -- 1.676 m (5' 6 ) 104.3 kg (230 lb) Physical Exam Vitals and nursing note reviewed. Constitutional: General: She is not in acute distress. Appearance: She is well-developed. She is not ill-appearing, toxic-appearing or diaphoretic. HENT: Head: Normocephalic and atraumatic. Eyes: General: No scleral icterus. Extraocular Movements: Extraocular movements intact. Conjunctiva/sclera: Conjunctivae normal. Pupils: Pupils are equal, round, and reactive to light. Neck: Thyroid: No thyromegaly. Vascular: No JVD. Trachea: No tracheal deviation. Cardiovascular: Rate and Rhythm: Normal rate. Pulmonary: Effort: Pulmonary effort is normal. No respiratory distress. Breath sounds: No stridor. No wheezing or rhonchi. Abdominal: General: Abdomen is flat. There is no distension. Palpations: Abdomen is soft. There is no mass. Tenderness: There is no abdominal tenderness. There is no guarding or rebound. Hernia: No hernia is present. Musculoskeletal: General: No swelling, tenderness, deformity or signs of injury. Normal range of motion. Cervical back: Normal range of motion and neck supple. Right lower leg: No edema. Left lower leg: No edema. Skin: General: Skin is warm and dry. Neurological: General: No focal deficit present. Mental Status: She is alert and oriented to person, place, and time. Mental status is at baseline. Cranial Nerves: No cranial nerve deficit. Sensory: No sensory deficit. Motor: No weakness or abnormal muscle tone. Gait: Gait abnormal (unsteady gait). Comments: Able to lift and move LE Psychiatric: Mood and Affect: Mood normal. Behavior: Behavior normal. Thought Content: Thought content normal. Judgment: Judgment normal. Ambulated patient to the bathroom she did not do well. She made it to the bathroom but on her way back she did not get very far prior to noting that her legs are becoming weak and are going to give out. Discussed admission with patient she agrees. Discussed patient with hospitalist who accepts the patient. I will order PT, as well as MRIs of the neck thoracic and lumbar spine. MDM MDM Final diagnoses: Weakness of both lower extremities Low back pain, unspecified back pain laterality, unspecified chronicity, unspecified whether sciatica present There may be grammatical errors in this note due to use of voice recognition software. DISPOSITION:Admit Julita Lizarraga MD 01/16/22 1530 Julita Lizarraga MD 01/16/22 1531 * Sandee Fontenot RN - 01/16/2022 11:48 AM CDT Pt presents to the ED via [facility] with c/o GLF that occurred at approximately 0700 this AM. Denies LOC or head injury. Pt was unable to get up on her own, but did scoot to a phone, where she called 911. * Brian Olivares RN - 01/16/2022 11:46 AM CDT Bed: ED04 Expected date: 01/16/22 Expected time: 11:40 AM Means of arrival: Ambulance Comments: 4A25 Brian Olivares RN 01/16/22 1146 documented in this encounter Miscellaneous Notes * Plan of Care - Brian Kessler LCSW - 01/18/2022 3:23 PM CDT (3:23 p.m.) WARREN faxed results of patient's COVID-19 test and her PASRR screening to [facility]. * Plan of Care - Brian Kessler LCSW - 01/18/2022 2:06 PM CDT (2:05 p.m.) WARREN sent instant message via [employer] to patient's physician, RN, and cupola charger insulation notifying all that this patient can be discharged to [facility] today pending the resultsof a COVID-19 test. (1:57 p.m.) WARREN received text message from Shannan with [facility] stating that this patient has been approved for admission to [facility]. Patient will be admitted to room: 204 D Please call report to: [phone] Please fax discharge orders and med reconciliation to: [phone] * Plan of Care - Brian Kessler LCSW - 01/18/2022 10:51 AM CDT (11:12 a.m.) WARREN completed PASRR LEVEL I screening and printed patient's Facesheet for OBRA screener. (10:54 a.m.) WARREN sent text message to Shannan with [facility] letting her know that they are SNF of preference and that this patient will need an insurance authorization. (10:51 a.m.) WARREN faxed referrals to [facility] and [facility] via [employer]. (10:40 a.m.) WARREN went to patient's room and spoke with patient about her SNF of preference. Patient reported that she is a friend that works at [facility] and it would likely be her facility of preference [facility] by [facility]. * Plan of Care - Lizbet Dubois RN - 01/18/2022 10:30 AM CDT Spoke with patient about PT recommending snf. Patient not wanting snf but agreeable to it. NATALY Torres notifies and will speak with patient. * Plan of Care - Margoth Wayne RN - 01/18/2022 5:14 AM CDT Goals: Clinical Goals for the Shift: VSS, keep pt comfortable, free from falls & injuries. Summary: VSS on RA. Pt has been sitting up in chair and resting in bed overnight with no complaints. Denies pain. Repositioned to comfortable. Up to bathroom with 1 assist and walker. No falls/injuries. Call light within reach and pt uses appropriately. * Plan of Care - Palmira Manley RN - 01/17/2022 4:25 PM CDT Goals: Clinical Goals for the Shift: VSS. Remain free of falls/injuries. Work with therapy to regain strength. Summary: V/S stable this shift. Pt has remained free of falls/injuries this shift. All scheduled procedures/tests done this shift. US of BLE shows nonocclusive DVT, MD notified and started pt on lovenox. Pt aware of DVT diagnosis. RA. Continues to be heavy 2 assist with transfers. Willingly worked w ith therapys this shift. * Plan of Care - Brandy Macdonald RN - 01/17/2022 3:57 AM CDT Problem: Safety: Goal: Will remain free from falls Outcome: Progressing Goal: Will remain free from injury from falls Outcome: Progressing Goal: Will remain free from falls and injury in home environment Outcome: Progressing Goals: Clinical Goals for the Shift: improved strength, vss. no falls or injuries. Summary: Pt in bed resting. C/o pain, prn meds given. No c/o nausea. No anxiety noted. Vss. Skin w/d. Pt up with assist. Bed alarm on. Will cont. With plan of care. * Plan of Care - Pamlira Manley RN - 01/16/2022 5:33 PM CDT Goals: Clinical Goals for the Shift: VSS. Admit to floor. Control pain. Summary: V/S stable this shift. Admitted with floor and oriented to room. Denies pain level at thistime. RA. 1-2 assist with walker. documented in this encounter Plan of Treatment Not on file documented as of this encounter Procedures Procedure Name Priority Date/Time Associated Diagnosis Comments COVID-19 CORONAVIRUS RNA Routine 01/18/2022 2:15 PM CDT URINALYSIS AND REFLEX TO MICROSCOPIC AND CULTURE Routine 01/18/2022 12:35 PM CDT SODIUM, URINE, RANDOM Routine 01/18/2022 12:35 PM CDT POCT GLUCOSE DEVICE Routine 01/18/2022 1 1:08 AM CDT POCT GLUCOSE DEVICE Routine 01/18/2022 7 :59 AM CDT EGFR Routine 01/18/2022 3:11 AM CDT RENAL FUNCTION PANEL Routine 01/18/2022 3:11 AM CDT POCT GLUCOSE DEVICE Routine 01/18/2022 2 :25 AM CDT POCT GLUCOSE DEVICE Routine 01/17/2022 9 :27 PM CDT POCT GLUCOSE DEVICE Routine 01/17/2022 4 :36 PM CDT APTT STAT 01/17/2022 3:55 PM CDT PROTIME-INR STAT 01/17/2022 3:55 PM CDT CBC WITHOUT DIFFERENTIAL STAT 01/17/2022 3:55 PM CDT US KIDNEY COMPLETE IP Routine 01/17/2022 2: 50 PM CDT US VEIN DUPLEX LOWER EXTREMITY BILATERAL COMPLETE IP Routine 01/17/2022 2:45 PM CDT MRI THORACIC SPINE WO CONTRAST ED 01/17/2022 1:51 PM CDT MRI CERVICAL SPINE WO CONTRAST IP Routine 01/17/2022 1:51 PM CDT MRI LUMBAR SPINE WO CONTRAST ED 01/17/2022 12:57 PM CDT POCT GLUCOSE DEVICE Routine 01/17/2022 1 1:36 AM CDT POCT GLUCOSE DEVICE Routine 01/17/2022 7 :54 AM CDT EGFR Routine 01/17/2022 3:12 AM CDT DIFFERENTIAL AUTO Routine 01/17/2022 3:1 2 AM CDT CBC WITH AUTO DIFFERENTIAL Routine 01/17/2022 3:12 AM CDT COMPREHENSIVE METABOLIC PANEL Routine 01/17/2022 3:12 AM CDT POCT GLUCOSE DEVICE Routine 01/17/2022 2:08 AM CDT URINALYSIS AND REFLEX TO MICROSCOPIC AND CULTURE Routine 01/16/2022 10:35 PM CDT EGFR STAT 01/16/2022 9:21 PM CDT DIFFERENTIAL AUTO STAT 01/16/2022 9:2 1 PM CDT CBC WITH AUTO DIFFERENTIAL STAT 01/16/2022 9:21 PM CDT PHOSPHORUS STAT 01/16/2022 9:21 PM CDT MAGNESIUM STAT 01/16/2022 9:21 PM CDT HEPATIC FUNCTION PANEL STAT 01/16/2022 9:21 PM CDT BASIC METABOLIC PANEL STAT 01/16/2022 9:21 PM CDT POCT GLUCOSE DEVICE Routine 01/16/2022 8 [address] LUMBAR SPINE WO CONTRAST ED 01/16/2022 12:[address] THORACIC SPINE WO CONTRAST ED 01/16/2022 12:39 PM CDT documented in this encounter Results * COVID-19 Coronavirus RNA Nasopharyngeal (01/18/2022 2:15 PM CDT) COVID-19 RNA Negative Negative ANN KOROMA) Nasopharyngeal 01/18/2022 2: 15 PM CDT 01/18/2022 2:21 PM CDT Narrative ANN CUADRA ([place]) - 01/18/2022 2:54 PM CDT Is the patient experiencing any symptoms consistent with COVID (eg. Fever, cough, shortness of breath)?->No What is the reason for testing?->Placement in post-acute care setting (Rapid) ??Interpretive data: Synonyms for this test include: PCR and NAAT . ??This test is performed using the [employer] Xpert Xpress plus assay. This is a real-time RT-PCR test intended for the qualitative detection of nucleic acid from the SARS-CoV-2. This assay has been reviewed by the FDA for Emergency Use Authorization (EUA). The performance characteristics have been verified by the performing laboratory. Results must be considered in the clinical context and a negative result does not rule out infection. Interpretive data last revised December 12, 2021. ??Interpretive data: Synonyms for this test include: PCR and NAAT . ??This test is performed using the [employer] Xpert Xpress plus assay. This is a real-time RT-PCR test intended for the qualitative detection of nucleic acid from the SARS-CoV-2. This assay has been reviewed by the FDA for Emergency Use Authorization (EUA). The performance characteristics have been verified by the performing laboratory. Results must be considered in the clinical context and a negative result does not rule out infection. Interpretive data last revised December 12, 2021. Meng Peters MD LAB MICROBIOLOGY - GEN ERAL ORDERABLES Final Result ANN CUADRA ([place]) 1 [facility] Department [place] [address] * Sodium, urine, random (01/18/2022 12:35 PM CDT) Sodium, ur 106 mmol/L [facility] ([place]) Comment: Interpretive Data No reference range established. Current interpretive data was last revised 2018. Urine 01/18/2022 12:3 5 PM CDT 01/18/2022 12:38 PM CDT Narrative [facility] ([place]) - 01/18/2022 1:04 PM CDT No normal range us Osmin Paige MD LAB URINE ORDERABLES Final Re sult [facility] ([place]) 1 [facility] Department [place] [address] * (ABNORMAL) Urinalysis reflex to microscopic and culture Urine (01/18/2022 12:35 PM CDT) Color, ur Straw Yellow [facility] ([place]) Clarity, ur Clear Clear [facility] ([place]) Specific gravity, ur 1.006 1.003 - 1.030 [facility] ([place]) pH, urine 5.5 [facility] ([place]) Protein, ur ql Negative Negative [facility] ([place]) Glucose, ur ql 3+(A) Negative [facility] ([place]) Ketones, ur Negative Negative [facility] ([place]) Bilirubin, ur Negative Negative [facility] ([place]) Blood, ur Negative Negative [facility] ([place]) Urobilinogen, ur <2.0 <2.0 mg/dL [facility] ([place]) Nitrite, ur Negative Negative [facility] ([place]) Leukocyte esterase, ur Negative Negative [facility] ([place]) UA reflex comment Reflex conditions for microscopic UA and culture not met. [facility] ([place]) Urine 01/18/2022 12:3 5 PM CDT 01/18/2022 12:38 PM CDT Narrative [facility] ([place]) - 01/18/2022 12:51 PM CDT ?? Urine pH is affected by diet, medications, systemic acid-base disturbances, and renal tubular function. ??pH may affect urinary stone formation. ??For example, urine pH below 6.0 may help reduce the tendency for calcium phosphate stones and pH greater than 6.0 may reduce the tendency for uric acid stone formation. Source: [facility] [employer]. Last revised 07-24-2017 Urine pH is affected by diet, medications, systemic acid-base disturbances, and renal tubular function. ??pH may affect urinary stone formation. ??For example, urine pH below 6.0 may help reduce the tendency for calcium phosphate stones and pH greater than 6.0 may reduce the tendency for uric acid stone formation. Source: [employer]. Last revised 07-24-2017 Osmin Paige MD LAB MICROBIOLOGY - GENERAL OR DERABLES Final Result Performing Organization Address City/[facility] Co de Phone Number ANN CUADRA ([place]) 1 [facility] [place] [address] * (ABNORMAL) POCT glucose (01/18/2022 11:08 AM CDT) Glucose, POC 226(H) 71 - 98 mg/dL ANN CUADRA ([place]) Blood 01/18/2022 11:0 8 AM CDT 01/18/2022 11:08 AM CDT Meng Peters MD LAB POCT ORDERABLES - DEVICE Final Result Performing Organization Address [facility] Co de Phone Number ANN CUADRA ([place]) 1 [facility] [place] [address] * (ABNORMAL) POCT glucose (01/18/2022 7:59 AM CDT) Glucose, POC 187(H) 71 - 98 mg/dL ANN CUADRA ([place]) Blood 01/18/2022 7:59 AM CDT 01/18/2022 7:59 AM CDT Meng Peters MD LAB POCT ORDERABLES - DEVICE Final Result Performing Organization Address [facility] Co de Phone Number ANN CUADRA ([place]) [address] Department [place] [address] * eGFR (01/18/2022 3:11 AM CDT) eGFR 29 mL/min/1. 73 m2 ANN CUADRA ([place]) Comment: Interpretive Data Reference Interval Normal ?>/= [...] interpretive data was last reviewed 2021. Blood 01/18/2022 3:11 AM CDT 01/18/2022 3:58 AM CDT us Osmin Paige MD LAB BLOOD ORDERABLES Final Re sult ANN KHALIF ([place]) 1 [facility] Department [place] [address] * (ABNORMAL) Renal function panel (01/18/2022 3:11 AM CDT) Sodium 139 135 - 145 mmol/L ANN CUADRA ([place]) Potassium, pl 4.3 3.3 - 4.9 mmol/L [facility] ([place]) Chloride 104 97 - 110 mmol/L [facility] ([place]) CO2 24 22 - 32 mmol/L [facility] ([place]) Anion gap 11 2 - 15 mmol/L [facility] ([place]) BUN 25 8 - 25 mg/dL [facility] ([place]) Creatinine 1.82(H) 0.60 - 1.10 mg/dL [facility] ([place]) Glucose 214(H) 70 - 199 mg/dL [facility] ([place]) [...] interpretive data was last revised 2017. Calcium 9.1 8.5 - 10.3 mg/dL [facility] ([place]) Phosphorus, pl 4.0 2.3 - 4.5 mg/dL [facility] ([place]) Albumin 3.1(L) 3.5 - 5.0 g/dL [facility] ([place]) Blood 01/18/2022 3:11 AM CDT 01/18/2022 3:58 AM CDT Osmin Paige MD LAB BLOOD ORDERABLES Final Re sult ANN [facility] ([place]) 1 [facility] Department of Laboratories [place], [place] [id number] * (ABNORMAL) POCT glucose (01/18/2022 2:25 AM CDT) Glucose, POC 198(H) 71 - 98 mg/dL [facility] ([place]) Blood 01/18/2022 2:25 AM CDT 01/18/2022 2:25 AM CDT us Funmilayo Jin DO LAB POCT ORDERABLES - DEVICE Final Result Performing Organization Address City/[facility]/ZIP Co de Phone Number ANN CUADRA ([place]) 1 [facility] [place] [address] * (ABNORMAL) POCT glucose (01/17/2022 9:27 PM CDT) Glucose, POC 290(H) 71 - 98 mg/dL ANN CUADRA ([place]) Blood 01/17/2022 9:27 PM CDT 01/17/2022 9:27 PM CDT us Funmilayo Jin DO LAB POCT ORDERABLES - DEVICE Final Result Performing Organization Address [facility] Co de Phone Number ANN CUADRA ([place]) 1 [facility] [place] [address] * (ABNORMAL) POCT glucose (01/17/2022 4:36 PM CDT) Glucose, POC 204(H) 71 - 98 mg/dL ANN CUADRA ([place]) Blood 01/17/2022 4:36 PM CDT 01/17/2022 4:36 PM CDT Funmilayo Jin DO LAB POCT ORDERABLES - DEVICE Final Result Performing Organization Address [facility] Co de Phone Number ANN CUADRA ([place]) 1 [facility] [place] [address] * (ABNORMAL) aPTT (01/17/2022 3:55 PM CDT) aPTT 43(H) 27 - 37 sec ANN CUADRA ([place]) Comment: Interpretive data Heparin therapeutic range: 60-94 seconds Range based on correlation with therapeutic heparin activity range of 0.3-0.7 units/ml. Current interpretive data was last revised on 2019. Blood 01/17/2022 3:55 PM CDT 01/17/2022 4:11 PM CDT Narrative [facility] ([place]) - 01/17/2022 4:29 PM CDT Baseline prior to enoxaparin initiation. us Funmilayo Jin DO LAB BLOOD ORDERABLE S Final Result [facility] ([place]) 1 [facility] Department [place] [address] * (ABNORMAL) CBC without differential (01/17/2022 3:55 PM CDT) WBC 10.4(H) 3.8 - 9.9 K/cumm [facility] ([place]) Hgb 11.9 11.9 - 15.5 g/dL [facility] ([place]) Hct 36.2 35.6 - 45.5 % [facility] ([place]) Plt 210 150 - 400 K/cumm [facility] ([place]) MPV 10.1 9.1 - 12.3 fL [facility] ([place]) RBC 3.94 3.90 - 5.20 M/cumm [facility] ([place]) MCV 91.9 81.3 - 96.4 fL [facility] ([place]) MCH 30.2 27.1 - 33.3 pg [facility] ([place]) MCHC 32.9 32.3 - 35.7 g/dL [facility] ([place]) RDW CV 15.2(H) 11.1 - 14.9 % [facility] ([place]) RDW SD 51.8(H) 35.7 - 48.1 fL [facility] ([place]) NRBC abs 0.00 0.00 - 0.01 K/cumm [facility] ([place]) Blood 01/17/2022 3:55 PM CDT 01/17/2022 4:11 PM CDT Narrative [facility] ([place]) - 01/17/2022 4:13 PM CDT Baseline prior to enoxaparin initiation. Funmilayo Jin DO LAB BLOOD ORDERABLE S Final Result [place] 1 [facility] [place] [address] * Protime-INR (01/17/2022 3:55 PM CDT) PT 11.3 9.2 - 13.5 sec [place] CUADRA ([place]) INR 1.0 0.9 - 1.2 [place] CUADRA ([place]) Comment: Interpretive data Oral anticoagulant therapeutic ranges: Venous thromboembolism prophylaxis or treatment: 2.0-3.0 CARDIOLOGY Standard range: 2.0-3.0 High-intensity range: 2.5-3.5 Refer to indication-specific guidelines for appropriate target ranges for prosthetic heart valve replacement. Current interpretive data was last revised on 2019. Blood 01/17/2022 3:55 PM CDT 01/17/2022 4:11 PM CDT Narrative ANN CUADRA ([place]) - 01/17/2022 4:26 PM CDT Baseline prior to enoxaparin initiation. Funmilayo Jin DO LAB BLOOD ORDERABLE S Final Result Performing Organization Address City/[facility] Co de Phone Number ANN [place] 1 [facility] [place] [address] * US Kidney Complete (01/17/2022 2:50 PM CDT) Anatomical Region Laterality Modality Kidney N/A Ultrasound 01/17/2022 3:26 PM CDT Narrative 01/17/2022 3:30 PM CDT EXAM DESCRIPTION: ?? US KIDNEY COMPLETE REASON FOR STUDY: ?? arf ?Acute renal failure. ??Chronic kidney disease stage 4. ??Diabetes. TECHNIQUE: Ultrasound of the kidneys and urinary bladder was performed with grayscale imaging. COMPARISON: ?? 06/28/2021 FINDINGS: Exam is suboptimal secondary to patient's body habitus. ?? RIGHT KIDNEY: The right kidney measures ?? 9.4 x 4.9 x 4.4 ??cm. ?? There is no definite sonographic evidence of hydronephrosis. ??There is cortical thinning with increased cortical echogenicity. ??There is a cyst noted in the upper pole of the right kidney measuring 2.0 x 1.8 x 1.7 cm. LEFT KIDNEY: The left kidney measures ?? 9.0 x 4.6 x 4.4 ??cm. ?? There is no definite sonographic evidence of hydronephrosis. ??There is cortical thinning with increased cortical echogenicity. URINARY BLADDER: ?? The urinary bladder, as visualized, appears unremarkable. OTHER: ?? No other additional findings. IMPRESSION: ?? 1. ?? No definite sonographic evidence of hydronephrosis. 2. ?? Cortical thinning with increased cortical echogenicity of bilateral kidneys, which is likely related to chronic medical renal disease. THIS IS AN ELECTRONICALLY VERIFIED FINAL REPORT 01/17/2022 3:30 PM - Electronically signed by ??Fabiana Lilly D.O. PS: PS D: ??01/17/2022 3:30 PM T: ??01/17/2022 3:30 PM Report ID: [id number] Reading Location: ??[id number] Procedure Note Fabiana Lilly, DO - 01/17/2022 EXAM DESCRIPTION: US KIDNEY COMPLETE REASON FOR STUDY: arf Acute renal failure. Chronic kidney disease stage 4. Diabetes. TECHNIQUE: Ultrasound of the kidneys and urinary bladder was performedwith grayscale imaging. COMPARISON: 06/28/2021 FINDINGS: Exam is suboptimal secondary to patient's body habitus. RIGHT KIDNEY: The right kidney measures 9.4 x 4.9 x 4.4 cm. There isno definite sonographic evidence of hydronephrosis. There is corticalthinning with increased cortical echogenicity. There is a cyst noted in the upperpole of the right kidney measuring 2.0 x 1.8 x 1.7 cm. LEFT KIDNEY: The left kidney measures 9.0 x 4.6 x 4.4 cm. There is no definite sonographic evidence of hydronephrosis. There is corticalthinning with increased cortical echogenicity. URINARY BLADDER: The urinary bladder, as visualized, appearsunremarkable. OTHER: No other additional findings. IMPRESSION: 1. No definite sonographic evidence of hydronephrosis. 2. Cortical thinning with increased cortical echogenicity of bilateral kidneys, which is likely related to chronic medical renal disease. THIS IS AN ELECTRONICALLY VERIFIED FINAL REPORT 01/17/2022 3:30 PM - Electronically signed by Fabiana Lilly D.O. PS: PS Report ID: [id number] Reading Location: [id number] us Osmin Paige MD IMG US PROCEDURES Final Resul t * US Vein Duplex Lower Extremity Bilateral Complete (01/17/2022 2:45 PM CDT) Anatomical Region Laterality Modality Vascular Bilateral Ultrasound 01/17/2022 2:48 PM CDT Narrative 01/17/2022 2:52 PM CDT EXAM DESCRIPTION: ?? US VEIN DUPLEX LOWER EXTREMITY BILATERAL COMPLETE REASON FOR STUDY: ?? Swelling, Lower Extremity, Bilateral ?? TECHNIQUE: Grayscale, color and spectral Doppler imaging of the deep venous system of the bilateral lower extremities was performed. Images stored on PACS. COMPARISON: ?? None FINDINGS: There is nonocclusive thrombus noted in the mid right superficial femoral vein. ?? The bilateral common femoral, left superficial femoral, and bilateral popliteal veins are readily compressible with no intraluminal thrombus on conroy scale images. ??There is normal color and spectral Doppler signal, including augmentation. ??The bilateral greater saphenous veins appear patent. ?? Visualized calf veins are patent. IMPRESSION: ?? 1. ?? Nonocclusive thrombus in the mid right superficial femoral vein. 2. ?? No definite evidence of a deep venous thrombosis in the left lower extremity venous system. ??Findings were discussed with ??patient's nurse, SEBASTIÁN Chavis, ??by Dr. Lilly at ??14:52 ??hours on ??01/17/2022 . THIS IS AN ELECTRONICALLY VERIFIED FINAL REPORT 01/17/2022 2:52 PM - Electronically signed by ??Fabiana Lilly D.O. PS: PS D: ??01/17/2022 2:52 PM T: ??01/17/2022 2:52 PM Report ID: [id number] Reading Location: ??[id number] Procedure Note Fabiana Lilly, DO - 01/17/2022 EXAM DESCRIPTION: US VEIN DUPLEX LOWER EXTREMITY BILATERAL COMPLETE REASON FOR STUDY: Swelling, Lower Extremity, Bilateral TECHNIQUE: Grayscale, color and spectral Doppler imaging of the deepvenous system of the bilateral lower extremities was performed. Images stored onPACS. COMPARISON: None FINDINGS: There is nonocclusive thrombus noted in the mid right superficial femoral vein. The bilateral common femoral, left superficial femoral, and bilateral popliteal veins are readily compressible with no intraluminal thrombus ongray scale images. There is normal color and spectral Doppler signal,including augmentation. The bilateral greater saphenous veins appear patent. Visualized calf veins are patent. IMPRESSION: 1. Nonocclusive thrombus in the mid right superficial femoral vein. 2. No definite evidence of a deep venous thrombosis in the left lower extremity venous system. Findings were discussed with patient's nurse, SEBASTIÁN Chavis, by at 14:52 hours on 01/17/2022 . THIS IS AN ELECTRONICALLY VERIFIED FINAL REPORT 01/17/2022 2:52 PM - Electronically signed by Fabiana Lilly D.O. PS: PS Report ID: [id number] Reading Location: [id number] Dari Rodgers MD IM US PROCEDURES Final Result * MRI Thoracic Spine WO Contrast (01/17/2022 1:51 PM CDT) Anatomical Region Laterality Modality Spine N/A Magnetic Resonan ce 01/17/2022 1:57 PM CDT Narrative 01/17/2022 2:12 PM CDT EXAM DESCRIPTION: ?? MRI THORACIC SPINE WO CONTRAST REASON FOR STUDY: ?? Mid-back pain, neuro deficit, difficulty ambulating/ leg weakness ?? Mid-back pain, difficulty walking, unsteady, leg weakness ??Done on OPEN MRI due to body habitus ?? TECHNIQUE: Sagittal and Axial imaging includes T1, T2, STIR and gradient echo sequences. ? COMPARISON: ?? Comparison the CT thoracic spine 01/16/2022. FINDINGS: ALIGNMENT: ?? Normal. VERTEBRAE: ?? Vertebral body height well-maintained. Normal appearing marrow. HARDWARE: ?? None in the spine. CORD: ?? Normal in size and signal intensity. THORACIC DISCS T1-T12: ?? Disc heights well-maintained. ??No significant spinal stenosis or neuroforaminal stenosis. SOFT TISSUES: ?? No soft tissue masses. LOWER CERVICAL: ?? Incompletely imaged. ??Severe spinal stenosis with cord impingement partly visualized at C7-T1. ??Please refer to cervical MRI imaging separately dictated.. UPPER LUMBAR: ?? Incompletely imaged. ??No significant spinal or neuroforaminal stenosis. OTHER: ?? No other significant abnormality. IMPRESSION: ??No definable abnormality of the thoracic spine. ??Mild multilevel chronic disc degeneration and endplate spurring without high-grade spinal stenosis or compressive disc herniation. Severe spinal stenosis and cord impingement at C7-T1 partly visualized. ?? Findings better delineated on cervical MRI imaging. ??Please refer to that report separately dictated. THIS IS AN ELECTRONICALLY VERIFIED FINAL REPORT 01/17/2022 2:12 PM - Electronically signed by ??Lauryn Matthews M.D. LC: IZZY D: ??01/17/2022 2:12 PM T: ??01/17/2022 2:12 PM Report ID: [id number] Reading Location: ??[id number] Procedure Note Tamara Matthews MD - 01/17/2022 EXAM DESCRIPTION: MRI THORACIC SPINE WO CONTRAST REASON FOR STUDY: Mid-back pain, neuro deficit, difficulty ambulating/leg weakness Mid-back pain, difficulty walking, unsteady, leg weakness Done on OPENMRI due to body habitus TECHNIQUE: Sagittal and Axial imaging includes T1, T2, STIR and gradientecho sequences. COMPARISON: Comparison the CT thoracic spine 01/16/2022. FINDINGS: ALIGNMENT: Normal. VERTEBRAE: Vertebral body height well-maintained. Normal appearingmarrow. HARDWARE: None in the spine. CORD: Normal in size and signal intensity. THORACIC DISCS T1-T12: Disc heights well-maintained. No significantspinal stenosis or neuroforaminal stenosis. SOFT TISSUES: No soft tissue masses. LOWER CERVICAL: Incompletely imaged. Severe spinal stenosis with cord impingement partly visualized at C7-T1. Please refer to cervical MRIimaging separately dictated.. UPPER LUMBAR: Incompletely imaged. No significant spinal orneuroforaminal stenosis. OTHER: No other significant abnormality. IMPRESSION: No definable abnormality of the thoracic spine. Mild multilevel chronic disc degeneration and endplate spurring without high-grade spinal stenosisor compressive disc herniation. Severe spinal stenosis and cord impingement at C7-T1 partly visualized. Findings better delineated on cervical MRI imaging. Please refer to that report separately dictated. THIS IS AN ELECTRONICALLY VERIFIED FINAL REPORT 01/17/2022 2:12 PM - Electronically signed by Lauryn Matthews M.D. LC: IZZY Report ID: [id number] Reading Location: [place] [address] Julita Lizarraga MD IM MRI PROCEDURES Final Result * MRI Cervical Spine WO Contrast (01/17/2022 1:51 PM CDT) Anatomical Region Laterality Modality Spine N/A Magnetic Resonan ce 01/17/2022 2:12 PM CDT Narrative 01/17/2022 2:23 PM CDT EXAM DESCRIPTION: ?? MRI CERVICAL SPINE WO CONTRAST REASON FOR STUDY: ?? Neck pain, initial exam, neck pain ?? Neck pain, difficulty walking, unsteady, leg weakness, 2008 cervical fusion C3-C7 ??Done on OPEN MRI due to body habitus ?? TECHNIQUE: Sagittal and Axial imaging includes T1, T2, STIR and gradient echo sequences. ? COMPARISON: ?? Comparison MRI cervical spine from 04/20/2008. ??Additional comparison CT cervical spine 09/04/2021. FINDINGS: ALIGNMENT: ?? There is overall straightening and slight reversal of lordosis with trace degenerative anterolisthesis of C7 on T1. VERTEBRAE: ?? There is solid osseous fusion of C3 through C7. DISCS: ?? Solid fusion of C3 through C7. ??Disc degeneration at C7-T1. ??See detail below. HARDWARE: ?? Interbody fusions hardware spanning C3 through C7. ??Findings may be correlated with plain film. CORD: ?? There is severe cord impingement with probably with a small area of T2 hyperintensity in the ventral cord. ??The cord appears expanded on this sagittal images however this is probably due to the lateral flattening resulting in anterior posterior diameter widening on sagittal images. ??At the cervical levels above, no definite intra cord signal abnormality is identified.. INDIVIDUAL LEVELS: C1-C2: ?? There is some hypertrophy of soft tissue around the odontoid C1 articulation likely due to thickening of ligaments. C2-C3: ?? There is no significant spinal stenosis. There is mild to moderate bilateral foraminal narrowing due to facet spurs C3-C4: ?? This level is fused. ??Some residual uncovertebral spurring with mild to moderate foraminal narrowing bilaterally is evident but there is no spinal stenosis or cord impingement. C4-C5: ?? This level is solidly fused. ??No definite central canal stenosis or foraminal stenosis. C5-C6: ?? No spinal stenosis or foraminal stenosis. C6-C7: ?? No spinal stenosis. ??There may be bilateral foraminal narrowing due to uncovertebral spurs. ??Foramina somewhat difficult to evaluate C7-T1: ?? Severe spinal stenosis has developed at this level when compared to prior MRI from 04/20/2008 with degenerative anterolisthesis and severe thickening and hypertrophy of posterior ligamentous structures and bulging of the disc annulus. ??Severe cord impingement and severe bilateral foraminal narrowing. ??Findings may account for the patient's myelopathic symptoms. ?? Please correlate with clinical features. BASE OF BRAIN: ?? No significant finding. UPPER THORACIC: ?? Incompletely imaged. No significant spinal stenosis or foraminal stenosis. OTHER: ?? No other significant finding. IMPRESSION: ??Solid-appearing fusion of C3 through C7. ??No spinal stenosis or cord impingement at these levels however there is residual multilevel facet arthritis and uncovertebral spurs with multilevel foraminal narrowing, as above. Interval development of severe disc degeneration at the C7-T1 disc level. ?? There is no degenerative anterolisthesis of C7 on T1 and significant thickening of posterior ligaments and facet joints with severe spinal stenosis circumferentially. ??There is severe bilateral foraminal narrowing. ??On the sagittal images, the cord appears increased in diameter however this is probably due to bilateral lateral compression of the cord. ??Possible faint T2 hyperintensity in the cord at this level may indicate compressive edema. THIS IS AN ELECTRONICALLY VERIFIED FINAL REPORT 01/17/2022 2:23 PM - Electronically signed by ??Lauryn Matthews M.D. LC: IZZY D: ??01/17/2022 2:23 PM T: ??01/17/2022 2:23 PM Report ID: [id number] Reading Location: ??[id number] Procedure Note Tamara Matthews MD - 01/17/2022 EXAM DESCRIPTION: MRI CERVICAL SPINE WO CONTRAST REASON FOR STUDY: Neck pain, initial exam, neck pain Neck pain, difficulty walking, unsteady, leg weakness, 2007 cervicalfusion C3-C7 Done on OPEN MRI due to body habitus TECHNIQUE: Sagittal and Axial imaging includes T1, T2, STIR and gradientecho sequences. COMPARISON: Comparison MRI cervical spine from 04/20/2008. Additional comparison CT cervical spine 09/04/2021. FINDINGS: ALIGNMENT: There is overall straightening and slight reversal oflordosis with trace degenerative anterolisthesis of C7 on T1. VERTEBRAE: There is solid osseous fusion of C3 through C7. DISCS: Solid fusion of C3 through C7. Disc degeneration at C7-T1. See detail below. HARDWARE: Interbody fusions hardware spanning C3 through C7. Findingsmay be correlated with plain film. CORD: There is severe cord impingement with probably with a small areaof T2 hyperintensity in the ventral cord. The cord appears expanded on this sagittal images however this is probably due to the lateral flattening resulting in anterior posterior diameter widening on sagittal images. Atthe cervical levels above, no definite intra cord signal abnormality is identified.. INDIVIDUAL LEVELS: C1-C2: There is some hypertrophy of soft tissue around the odontoid C1 articulation likely due to thickening of ligaments. C2-C3: There is no significant spinal stenosis. There is mild tomoderate bilateral foraminal narrowing due to facet spurs C3-C4: This level is fused. Some residual uncovertebral spurring withmild to moderate foraminal narrowing bilaterally is evident but there is nospinal stenosis or cord impingement. C4-C5: This level is solidly fused. No definite central canal stenosisor foraminal stenosis. C5-C6: No spinal stenosis or foraminal stenosis. C6-C7: No spinal stenosis. There may be bilateral foraminal narrowingdue to uncovertebral spurs. Foramina somewhat difficult to evaluate C7-T1: Severe spinal stenosis has developed at this level when comparedto prior MRI from 04/20/2008 with degenerative anterolisthesis and severe thickening and hypertrophy of posterior ligamentous structures and bulgingof the disc annulus. Severe cord impingement and severe bilateral foraminal narrowing. Findings may account for the patient's myelopathic symptoms. Please correlate with clinical features. BASE OF BRAIN: No significant finding. UPPER THORACIC: Incompletely imaged. No significant spinal stenosis or foraminal stenosis. OTHER: No other significant finding. IMPRESSION: Solid-appearing fusion of C3 through C7. No spinal stenosis or cord impingement at these levels however there is residual multilevel facet arthritis and uncovertebral spurs with multilevel foraminal narrowing, as above. Interval development of severe disc degeneration at the C7-T1 disc level. There is no degenerative anterolisthesis of C7 on T1 and significant thickening of posterior ligaments and facet joints with severe spinalstenosis circumferentially. There is severe bilateral foraminal narrowing. On the sagittal images, the cord appears increased in diameter however this is probably due to bilateral lateral compression of the cord. Possible faintT2 hyperintensity in the cord at this level may indicate compressive edema. THIS IS AN ELECTRONICALLY VERIFIED FINAL REPORT 01/17/2022 2:23 PM - Electronically signed by Lauryn Matthews M.D. LC: IZZY Report ID: [id number] Reading Location: [place] [address] Julita Lizarraga MD [facility] [place], [place] MRI PROCEDURES Final Result * MRI Lumbar Spine WO Contrast (01/17/2022 12:57 PM CDT) Anatomical Region Laterality Modality Spine N/A Magnetic Resonan ce 01/17/2022 1:02 PM CDT Narrative 01/17/2022 1:19 PM CDT EXAM DESCRIPTION: ?? MRI LUMBAR SPINE WO CONTRAST REASON FOR STUDY: ?? Back pain or radiculopathy, > 6 wks, back apin ?? Low back pain, difficulty walking, unsteady, leg weakness, Prior left laminectomy ?? at L4 ??Done on OPEN MRI due to body habitus ?? TECHNIQUE: ??Sagittal and Axial imaging includes T1, T2, STIR sequences. ? COMPARISON: ?? Comparison 01/26/2018 FINDINGS: SEGMENTATION: ?? No transitional anatomy. The lowest well-developed disc space is labeled L5-S1. ALIGNMENT: ?? There is degenerative anterolisthesis of L4 on L5 which has progressed since prior. ??Alignment otherwise is normal. VERTEBRAE: ?? Vertebral body height well-maintained. Normal appearing marrow. DISC HEIGHT: ?? Well-maintained. HARDWARE: ?? None in the spine. CORD/CAUDA: ?? Normal in size and signal intensity. Conus at the appropriate level. LOWER THORACIC: ?? Incompletely imaged. No stenosis seen. INDIVIDUAL DISC LEVELS: L1-2: ?? No diffuse disc bulge or focal herniation. No significant spinal canal or neuroforaminal stenosis. L2-3: ?? Moderate annular bulge with facet arthritis and thickening of posterior ligaments. ??There is stable mild to moderate spinal stenosis. ??No significant foraminal narrowing. L3-4: ?? Disc space narrowing with hypertrophy of facets and ligaments posteriorly. ??In conjunction with diffuse annular bulge, there is moderate spinal stenosis and subarticular stenosis. ??Moderate bilateral foraminal narrowing. L4-5: ?? Postoperative change of prior left hemilaminotomy. ??There is moderate to severe spinal stenosis and severe bilateral foraminal stenosis due to increasing degenerative anterolisthesis, disc bulge and facet and ligamentous hypertrophy. ??Bilateral subarticular stenosis also evident. L5-S1: ?? Central disc protrusion. ??No significant central canal stenosis. ?? Foraminal narrowing right greater than left due to lateral endplate and facet spurs.. SACRUM: ?? Visualized upper sacrum intact. VISUALIZED UPPER ABDOMEN: ?? No significant abnormality. OTHER: ?? No other significant findings. IMPRESSION: ??Increasing degenerative anterolisthesis at L4-5 with increasing spinal stenosis and severe bilateral foraminal narrowing due to chronic endplate and disc changes and facet and ligamentous hypertrophy in conjunction with degenerative anterolisthesis. ??Postop left hemilaminotomy changes again evident at this level as well. ??Multilevel disc degeneration other levels has remained relatively stable, as above. ??Please correlate with radiculopathy symptoms. THIS IS AN ELECTRONICALLY VERIFIED FINAL REPORT 01/17/2022 1:19 PM - Electronically signed by ??Lauryn Matthews M.D. LC: IZZY D: ??01/17/2022 1:19 PM T: ??01/17/2022 1:19 PM Report ID: [id number] Reading Location: ??[id number] Procedure Note Tamara Matthews MD - 01/17/2022 EXAM DESCRIPTION: MRI LUMBAR SPINE WO CONTRAST REASON FOR STUDY: Back pain or radiculopathy, > 6 wks, back apin Low back pain, difficulty walking, unsteady, leg weakness, Prior left laminectomy at L4 Done on OPEN MRI due to body habitus TECHNIQUE: Sagittal and Axial imaging includes T1, T2, STIR sequences. COMPARISON: Comparison 01/26/2018 FINDINGS: SEGMENTATION: No transitional anatomy. The lowest well-developed discspace is labeled L5-S1. ALIGNMENT: There is degenerative anterolisthesis of L4 on L5 which has progressed since prior. Alignment otherwise is normal. VERTEBRAE: Vertebral body height well-maintained. Normal appearingmarrow. DISC HEIGHT: Well-maintained. HARDWARE: None in the spine. CORD/CAUDA: Normal in size and signal intensity. Conus at theappropriate level. LOWER THORACIC: Incompletely imaged. No stenosis seen. INDIVIDUAL DISC LEVELS: L1-2: No diffuse disc bulge or focal herniation. No significant spinalcanal or neuroforaminal stenosis. L2-3: Moderate annular bulge with facet arthritis and thickening of posterior ligaments. There is stable mild to moderate spinal stenosis.No significant foraminal narrowing. L3-4: Disc space narrowing with hypertrophy of facets and ligaments posteriorly. In conjunction with diffuse annular bulge, there is moderate spinal stenosis and subarticular stenosis. Moderate bilateral foraminal narrowing. L4-5: Postoperative change of prior left hemilaminotomy. There ismoderate to severe spinal stenosis and severe bilateral foraminal stenosis due to increasing degenerative anterolisthesis, disc bulge and facet andligamentous hypertrophy. Bilateral subarticular stenosis also evident. L5-S1: Central disc protrusion. No significant central canal stenosis. Foraminal narrowing right greater than left due to lateral endplate andfacet spurs.. SACRUM: Visualized upper sacrum intact. VISUALIZED UPPER ABDOMEN: No significant abnormality. OTHER: No other significant findings. IMPRESSION: Increasing degenerative anterolisthesis at L4-5 with increasing spinal stenosis and severe bilateral foraminal narrowing due to chronic endplateand disc changes and facet and ligamentous hypertrophy in conjunction with degenerative anterolisthesis. Postop left hemilaminotomy changes again evident at this level as well. Multilevel disc degeneration other levelshas remained relatively stable, as above. Please correlate with radiculopathy symptoms. THIS IS AN ELECTRONICALLY VERIFIED FINAL REPORT 01/17/2022 1:19 PM - Electronically signed by Lauryn Matthews M.D. LC: IZZY Report ID: [id number] Reading Location: [place] [address] Julita Lizarraga MD IMG MRI PROCEDURES Final Result * (ABNORMAL) POCT glucose (01/17/2022 11:36 AM CDT) Glucose, POC 199(H) 71 - 98 mg/dL [facility] CUADRA ([place]) Blood 01/17/2022 11:3 6 AM CDT 01/17/2022 11:36 AM CDT Funmilayo Jin DO LAB POCT ORDERABLES - DEVICE Final Result ANN CUADRA ([place]) 1 [facility] Department [place] [place] [address] * (ABNORMAL) POCT glucose (01/17/2022 7:54 AM CDT) Glucose, POC 139(H) 71 - 98 mg/dL ANN CUADRA ([place]) Blood 01/17/2022 7:54 AM CDT 01/17/2022 7:54 AM CDT us Funmilayo Jin DO LAB POCT ORDERABLES - DEVICE Final Result Performing Organization Address City/[facility]/ZIP Co de Phone Number ANN CUADRA ([place]) 1 [facility] Department [place] [address] * eGFR (01/17/2022 3:12 AM CDT) eGFR 26 mL/min/1. 73 m2 ANN CUADRA ([place]) Comment: [...] interpretive data was last reviewed 2021. Blood 01/17/2022 3:12 AM CDT 01/17/2022 4:09 AM CDT us Julita Lizarraga MD LAB BLOOD ORDERABLE S Final Result Performing Organization Address City/[facility]/ZIP Co de Phone Number [facility] ([place]) 1 [facility] Department [place] [address] * (ABNORMAL) Differential, auto (01/17/2022 3:12 AM CDT) Neutrophil abs 6.7(H) 1.7 - 6.5 K/cumm [facility] ([place]) Imm gran abs 0.1 0.0 - 0.1 K/cumm [facility] ([place]) Lymphocyte abs 1.8 0.8 - 3.3 K/cumm [facility] ([place]) Monocyte abs 0.9(H) 0.2 - 0.8 K/cumm [facility] ([place]) Eosinophil abs 0.1 0.0 - 0.5 K/cumm [facility] ([place]) Basophil abs 0.1 0.0 - 0.1 K/cumm [facility] ([place]) Neutrophil pct 69.5 % [facility] ([place]) Comment: Interpretive Data Percent cell count reference ranges are not reported, since discordance with absolute values may lead to misinterpretation of CBC data. Current Interpretive Data was last revised on 2017. Imm gran pct 0.8 % [facility] ([place]) Comment: Interpretive Data Percent cell count reference ranges are not reported, since discordance with absolute values may lead to misinterpretation of CBC data. Current Interpretive Data was last revised on 2017. Lymphocyte pct 18.6 % [facility] ([place]) Comment: Interpretive Data Percent cell count reference ranges are not reported, since discordance with absolute values may lead to misinterpretation of CBC data. Current Interpretive Data was last revised on 2017. Monocyte pct 9.5 % [facility] ([place]) Comment: Interpretive Data Percent cell count reference ranges are not reported, since discordance with absolute values may lead to misinterpretation of CBC data. Current Interpretive Data was last revised on 2017. Eosinophil pct 1.1 % [facility] ([place]) Comment: Interpretive Data Percent cell count reference ranges are not reported, since discordance with absolute values may lead to misinterpretation of CBC data. Current Interpretive Data was last revised on 2017. Basophil pct 0.5 % [facility] ([place]) Comment: Interpretive Data Percent cell count reference ranges are not reported, since discordance with absolute values may lead to misinterpretation of CBC data. Current Interpretive Data was last revised on 2017. Blood 01/17/2022 3:12 AM CDT 01/17/2022 4:13 AM CDT us Julita Lizarraga MD LAB BLOOD ORDERABLE S Final Result [facility] ([place]) 1 [facility] Department [place] [address] * (ABNORMAL) Comprehensive metabolic panel (01/17/2022 3:12 AM CDT) Sodium 142 135 - 145 mmol/L [facility] ([place]) Potassium, pl 4.2 3.3 - 4.9 mmol/L [facility] ([place]) Chloride 106 97 - 110 mmol/L [facility] ([place]) CO2 24 22 - 32 mmol/L [facility] ([place]) Anion gap 12 2 - 15 mmol/L [facility] ([place]) BUN 23 8 - 25 mg/dL [facility] ([place]) Creatinine 1.99(H) 0.60 - 1.10 mg/dL [facility] ([place]) Glucose 157 70 - 199 mg/dL [facility] ([place]) [...] interpretive data was last revised 2017. Calcium 9.1 8.5 - 10.3 mg/dL [facility] ([place]) Bilirubin, total 0.5 0.1 - 1.2 mg/dL [facility] ([place]) Protein, pl 6.0(L) 6.5 - 8.5 g/dL [facility] ([place]) Albumin 3.2(L) 3.5 - 5.0 g/dL [facility] ([place]) Alk phos 66 40 - 130 Units/L [facility] ([place]) ALT 17 7 - 45 Units/L [facility] ([place]) AST 15 10 - 45 Units/L [facility] ([place]) Blood 01/17/2022 3:12 AM CDT 01/17/2022 4:09 AM CDT us Julita Lizarraga MD LAB BLOOD ORDERABLE S Final Result [facility] ([place]) 1 [facility] Department [place] [address] * (ABNORMAL) CBC with auto differential (01/17/2022 3:12 AM CDT) WBC 9.7 3.8 - 9.9 K/cumm [facility] ([place]) Hgb 10.6(L) 11.9 - 15.5 g/dL [facility] ([place]) Hct 33.5(L) 35.6 - 45.5 % [facility] ([place]) Plt 191 150 - 400 K/cumm [facility] ([place]) MPV 10.6 9.1 - 12.3 fL [facility] ([place]) RBC 3.57(L) 3.90 - 5.20 M/cumm [facility] ([place]) MCV 93.8 81.3 - 96.4 fL [facility] ([place]) MCH 29.7 27.1 - 33.3 pg [facility] ([place]) MCHC 31.6(L) 32.3 - 35.7 g/dL [facility] ([place]) RDW CV 14.9 11.1 - 14.9 % [facility] ([place]) RDW SD 51.5(H) 35.7 - 48.1 fL [facility] ([place]) NRBC abs 0.00 0.00 - 0.01 K/cumm [facility] ([place]) Blood 01/17/2022 3:12 AM CDT 01/17/2022 4:13 AM CDT us Julita Lizarraga MD LAB BLOOD ORDERABLE S Final Result Performing Organization Address City/[facility]/ZIP Co de Phone Number ANN CUADRA ([place]) 1 [facility] [place] [address] * (ABNORMAL) POCT glucose (01/17/2022 2:08 AM CDT) Glucose, POC 134(H) 71 - 98 mg/dL [facility] ([place]) Blood 01/17/2022 2:08 AM CDT 01/17/2022 2:08 AM CDT us Lili Lujan MD LAB POCT ORDERABLES - DEVICE Fin al Result Performing Organization Address [facility] Co de Phone Number ANN CUADRA ([place]) 1 [facility] [place] [address] * (ABNORMAL) Urinalysis reflex to microscopic and culture Urine (01/16/2022 10:35 PM CDT) Color, ur Yellow Yellow [facility] ([place]) Clarity, ur Clear Clear [facility] ([place]) Specific gravity, ur 1.007 1.003 - 1.030 [facility] ([place]) pH, urine 6.0 [facility] ([place]) Protein, ur ql Negative Negative [facility] ([place]) Glucose, ur ql 1+(A) Negative [facility] ([place]) Ketones, ur Negative Negative [facility] ([place]) Bilirubin, ur Negative Negative [facility] ([place]) Blood, ur Negative Negative [facility] ([place]) Urobilinogen, ur <2.0 <2.0 mg/dL [facility] ([place]) Nitrite, ur Negative Negative [facility] ([place]) Leukocyte esterase, ur Negative Negative [facility] ([place]) UA reflex comment Reflex conditions for microscopic UA and culture not met. [facility] ([place]) Urine 01/16/2022 10:3 5 PM CDT 01/16/2022 10:38 PM CDT Narrative ANN KHALIF ([place]) - 01/16/2022 10:42 PM CDT ?? Urine pH is affected by diet, medications, systemic acid-base disturbances, and renal tubular function. ??pH may affect urinary stone formation. ??For example, urine pH below 6.0 may help reduce the tendency for calcium phosphate stones and pH greater than 6.0 may reduce the tendency for uric acid stone formation. Source: [employer]. Last revised 07-24-2017 us Dari Rodgers MD LAB MICROBIOLOGY - GENER AL ORDERABLES Final Result [facility] ([place]) 1 [facility] Department [place] [address] * eGFR (01/16/2022 9:21 PM CDT) eGFR 23 mL/min/1. 73 m2 [facility] ([place]) Comment: [...] interpretive data was last reviewed 2021. Blood 01/16/2022 9:21 PM CDT 01/16/2022 9:28 PM CDT us Dari Rodgers MD LAB BLOOD ORDERABLES Fin al Result ANN [facility] ([place]) 1 [facility] Department [place] [address] * (ABNORMAL) Differential, auto (01/16/2022 9:21 PM CDT) Neutrophil abs 7.5(H) 1.7 - 6.5 K/cumm [facility] ([place]) Imm gran abs 0.1 0.0 - 0.1 K/cumm [facility] ([place]) Lymphocyte abs 1.7 0.8 - 3.3 K/cumm [facility] ([place]) Monocyte abs 0.9(H) 0.2 - 0.8 K/cumm [facility] ([place]) Eosinophil abs 0.1 0.0 - 0.5 K/cumm [facility] ([place]) Basophil abs 0.1 0.0 - 0.1 K/cumm [facility] ([place]) Neutrophil pct 72.2 % [facility] ([place]) Comment: Interpretive Data Percent cell count reference ranges are not reported, since discordance with absolute values may lead to misinterpretation of CBC data. Current Interpretive Data was last revised on 2017. Imm gran pct 0.7 % [facility] ([place]) Comment: Interpretive Data Percent cell count reference ranges are not reported, since discordance with absolute values may lead to misinterpretation of CBC data. Current Interpretive Data was last revised on 2017. Lymphocyte pct 16.7 % [facility] ([place]) Comment: Interpretive Data Percent cell count reference ranges are not reported, since discordance with absolute values may lead to misinterpretation of CBC data. Current Interpretive Data was last revised on 2017. Monocyte pct 8.8 % [facility] ([place]) Comment: Interpretive Data Percent cell count reference ranges are not reported, since discordance with absolute values may lead to misinterpretation of CBC data. Current Interpretive Data was last revised on 2017. Eosinophil pct 0.9 % [facility] ([place]) Comment: Interpretive Data Percent cell count reference ranges are not reported, since discordance with absolute values may lead to misinterpretation of CBC data. Current Interpretive Data was last revised on 2017. Basophil pct 0.7 % [facility] ([place]) Comment: Interpretive Data Percent cell count reference ranges are not reported, since discordance with absolute values may lead to misinterpretation of CBC data. Current Interpretive Data was last revised on 2017. Blood 01/16/2022 9:21 PM CDT 01/16/2022 9:28 PM CDT Dari Rodgers MD LAB BLOOD ORDERABLES Fin al Result Performing Organization Address [facility] Co de Phone Number [facility] ([place]) 1 [facility] Department [place] [address] * (ABNORMAL) Hepatic function panel (01/16/2022 9:21 PM CDT) Bilirubin, total 0.6 0.1 - 1.2 mg/dL [facility] ([place]) Bilirubin, direct <0.2 0.1 - 0.3 mg/dL [facility] ([place]) Protein, pl 6.3(L) 6.5 - 8.5 g/dL [facility] ([place]) Albumin 3.4(L) 3.5 - 5.0 g/dL [facility] ([place]) Alk phos 69 40 - 130 Units/L [facility] ([place]) ALT 18 7 - 45 Units/L [facility] ([place]) AST 17 10 - 45 Units/L [facility] ([place]) Blood 01/16/2022 9:21 PM CDT 01/16/2022 9:28 PM CDT Dari Rodgers MD LAB BLOOD ORDERABLES Fin al Result [facility] ([place]) 1 [facility] [place] [address] * Phosphorus (01/16/2022 9:21 PM CDT) Pathologist [facility] Phosphorus, pl 4.4 2.3 - 4.5 mg/dL [facility] ([place]) Blood 01/16/2022 9:21 PM CDT 01/16/2022 9:28 PM CDT Dari Rodgers MD LAB BLOOD ORDERABLES Fin al Result Performing Organization Address City/[facility]/ZIP Co de Phone Number [facility] ([place]) 1 [facility] [place] [address] * Magnesium (01/16/2022 9:21 PM CDT) [facility] Magnesium 2.1 1.4 - 2.5 mg/dL [facility] ([place] Blood 01/16/2022 9:21 PM CDT 01/16/2022 9:28 PM CDT Dari Rodgers MD LAB BLOOD ORDERABLES Fin al Result Performing Organization Address City/[facility]/ZIP Co de Phone Number [facility] ([place]) 1 [facility] [place] [address] * (ABNORMAL) CBC with auto differential (01/16/2022 9:21 PM CDT) [facility] WBC 10.4(H) 3.8 - 9.9 K/cumm [facility] ([place]) Hgb 11.3(L) 11.9 - 15.5 g/dL [facility] ([place]) Hct 34.3(L) 35.6 - 45.5 % [facility] ([place]) Plt 195 150 - 400 K/cumm [facility] ([place]) MPV 9.9 9.1 - 12.3 fL [facility] ([place]) RBC 3.79(L) 3.90 - 5.20 M/cumm [facility] ([place]) MCV 90.5 81.3 - 96.[address] [facility] ([place]) MCH 29.8 27.1 - 33.[address] [facility] ([place]) MCHC 32.9 32.3 - 35.7 g/dL [facility] ([place]) RDW CV 15.0(H) 11.1 - 14.9 % [facility] ([place]) RDW SD 49.8(H) 35.7 - 48.1 fL [facility] ([place]) NRBC abs 0.00 0.00 - 0.01 K/cumm [facility] ([place]) Blood 01/16/2022 9:21 PM CDT 01/16/2022 9:28 PM CDT us Dari Rodgers MD LAB BLOOD ORDERABLES Fin al Result [facility] ([place]) 1 [facility] Department [place] [address] * (ABNORMAL) Basic metabolic panel (01/16/2022 9:21 PM CDT) Sodium 141 135 - 145 mmol/L [facility] ([place]) Potassium, pl 4.5 3.3 - 4.9 mmol/L [facility] ([place]) Chloride 104 97 - 110 mmol/L [facility] ([place]) CO2 26 22 - 32 mmol/L [facility] ([place] Anion gap 11 2 - 15 mmol/L [facility] ([place]) BUN 23 8 - 25 mg/dL [facility] ([place]) Creatinine 2.21(H) 0.60 - 1.10 mg/dL [facility] ([place]) Glucose 163 70 - 199 mg/dL [facility] ([place]) Comment: Interpretive Data Fasting glucose [...] interpretive data was last revised 2017. Calcium 9.2 8.5 - 10.3 mg/dL [facility] ([place]) Blood 01/16/2022 9:21 PM CDT 01/16/2022 9:28 PM CDT Dari Rodgers MD LAB BLOOD ORDERABLES Fin al Result Performing Organization Address City/[facility]/ZIP Co de Phone Number [facility] ([place]) 1 [facility] [place] [place] [address] * (ABNORMAL) POCT glucose (01/16/2022 8:51 PM CDT) [facility] Glucose, POC 139(H) 71 - 98 mg/dL [facility] ([place]) Blood 01/16/2022 8:51 PM CDT 01/16/2022 8:51 PM CDT Lili Lujan MD LAB POCT ORDERABLES - DEVICE Fin al Result Performing Organization Address [facility] Co de Phone Number [facility] ([place] 1 [facility] [place] [place] [address] * CT Lumbar Spine WO Contrast (01/16/2022 12:40 PM CDT) Anatomical Region Laterality Modality Spine N/A Computed Tomogra phy 01/16/2022 12:5 8 PM CDT Narrative 01/16/2022 1:06 PM CDT EXAM DESCRIPTION: ?? CT LUMBAR SPINE WO CONTRAST REASON FOR STUDY: ?? Back pain and weakness after fall today. ?? TECHNIQUE: Axial images acquired through the lumbar spine without intravenous contrast. ??Reconstructed coronal and sagittal MPR images reviewed. ??All images stored on PACS. Automated exposure control was used as a dose optimization technique for this examination. COMPARISON: ?? CT lumbar spine 09/04/2021 FINDINGS: SEGMENTATION: ?? No transitional anatomy. The lowest well-developed disc space is labeled L5-S1. ALIGNMENT: ?? Minimal dextroscoliosis of the lumbar spine. ??Grade 1 anterolisthesis of L4 on L5 is unchanged. VERTEBRAE: ?? No fracture identified. ??Moderate diffuse lumbar spondylosis. ?? Prominent Schmorl's node along the inferior endplate of L4. DISC HEIGHT: ?? Minimal loss of intervertebral disc space height at L2-3, L3-4, L4-5. HARDWARE: ?? None in the spine. INDIVIDUAL DISC LEVELS: ?? Broad-based disc bulge at L2-3 causes mild spinal canal narrowing. ??Broad-based disc bulge at L3-4 causes mild spinal canal narrowing and mild left neural foraminal narrowing. ??Broad-based disc bulge at L4-5 causes moderate to severe spinal canal narrowing. ??Prior left laminectomy at L4. ??Severe left and moderate right neural foraminal narrowing at L4-5. ?? Broad-based disc bulge at L5-S1 causes mild spinal canal narrowing. ??There is severe right and moderate left neural foraminal narrowing at L5-S1. VISUALIZED RIBS: ?? No fractures. SOFT TISSUES: ?? No significant or acute finding in adjacent soft tissues. OTHER: ?? No other significant finding. IMPRESSION: ?? No acute fracture of the lumbar spine. Moderate to severe lumbar spondylosis. Evaluation of the spinal canal contents is limited on noncontrast CT. THIS IS AN ELECTRONICALLY VERIFIED FINAL REPORT 01/16/2022 1:06 PM - Electronically signed by ??Néstor Davis M.D. LB: LB D: ??01/16/2022 1:06 PM T: ??01/16/2022 1:06 PM Report ID: [id number] Reading Location: ??[id number] Procedure Note Néstor Davis MD - 01/16/2022 EXAM DESCRIPTION: CT LUMBAR SPINE WO CONTRAST REASON FOR STUDY: Back pain and weakness after fall today. TECHNIQUE: Axial images acquired through the lumbar spine withoutintravenous contrast. Reconstructed coronal and sagittal MPR images reviewed. Allimages stored on PACS. Automated exposure control was used as a dose optimization technique forthis examination. COMPARISON: CT lumbar spine 09/04/2021 FINDINGS: SEGMENTATION: No transitional anatomy. The lowest well-developed discspace is labeled L5-S1. ALIGNMENT: Minimal dextroscoliosis of the lumbar spine. Grade 1 anterolisthesis of L4 on L5 is unchanged. VERTEBRAE: No fracture identified. Moderate diffuse lumbar spondylosis. Prominent Schmorl's node along the inferior endplate of L4. DISC HEIGHT: Minimal loss of intervertebral disc space height at L2-3,L3-4, L4-5. HARDWARE: None in the spine. INDIVIDUAL DISC LEVELS: Broad-based disc bulge at L2-3 causes mildspinal canal narrowing. Broad-based disc bulge at L3-4 causes mild spinal canal narrowing and mild left neural foraminal narrowing. Broad-based discbulge at L4-5 causes moderate to severe spinal canal narrowing. Prior leftlaminectomy at L4. Severe left and moderate right neural foraminal narrowing at L4-5. Broad-based disc bulge at L5-S1 causes mild spinal canal narrowing. Thereis severe right and moderate left neural foraminal narrowing at L5-S1. VISUALIZED RIBS: No fractures. SOFT TISSUES: No significant or acute finding in adjacent soft tissues. OTHER: No other significant finding. IMPRESSION: No acute fracture of the lumbar spine. Moderate to severe lumbar spondylosis. Evaluation of the spinal canal contents is limited on noncontrast CT. THIS IS AN ELECTRONICALLY VERIFIED FINAL REPORT 01/16/2022 1:06 PM - Electronically signed by Néstor Davis M.D. LB: ARVIND Report ID: [id number] Reading Location: [id number] Julita Lizarraga MD IMG CT PROCEDURES F inal Result * CT Thoracic Spine WO Contrast (01/16/2022 12:39 PM CDT) Anatomical Region Laterality Modality Spine N/A Computed Tomogra phy 01/16/2022 12:4 1 PM CDT Narrative 01/16/2022 12:57 PM CDT EXAM DESCRIPTION: ?? CT THORACIC SPINE WO CONTRAST REASON FOR STUDY: ?? Back pain after fall this morning. TECHNIQUE: Axial images acquired through the thoracic spine without intravenous contrast. ??Images reviewed with lung, soft tissue and bone windows. ??Reconstructed coronal and sagittal MPR images reviewed. ??Images stored on PACS. Automated exposure control was used as a dose optimization technique for this examination. COMPARISON: ?? CT lumbar spine 09/04/2021 CT chest 07/25/2014 FINDINGS: ALIGNMENT: ?? Normal. VERTEBRAE: ?? No fracture. Vertebral body height well-maintained. ??Mild diffuse thoracic spondylosis. DISC HEIGHT: ?? Mild loss of intervertebral disc space height in the mid thoracic spine. HARDWARE: ?? Osseous fusion in the cervical spine is only partially visualized. THORACIC DISCS T1-T12: ?? No significant osseous spinal stenosis or neuroforaminal stenosis. SOFT TISSUES: ?? Dependent opacities lungs likely represent areas of atelectasis. LOWER CERVICAL: ?? Incompletely imaged. No significant osseous spinal stenosis or osseous foraminal stenosis. UPPER LUMBAR: ?? Incompletely imaged. ??No significant osseous spinal or osseous neuroforaminal stenosis. OTHER: ?? No other significant abnormality. IMPRESSION: ?? 1. ?? No acute fracture of the thoracic spine. 2. ?? Mild diffuse thoracic spondylosis. THIS IS AN ELECTRONICALLY VERIFIED FINAL REPORT 01/16/2022 12:57 PM - Electronically signed by ??Néstor Davis M.D. LB: ARVIND D: ??01/16/2022 12:57 PM T: ??01/16/2022 12:57 PM Report ID: [id number] Reading Location: ??[id number] Procedure Note Néstor Davis MD - 01/16/2022 EXAM DESCRIPTION: CT THORACIC SPINE WO CONTRAST REASON FOR STUDY: Back pain after fall this morning. TECHNIQUE: Axial images acquired through the thoracic spine without intravenous contrast. Images reviewed with lung, soft tissue and bone windows. Reconstructed coronal and sagittal MPR images reviewed. Images stored on PACS. Automated exposure control was used as a dose optimization technique for this examination. COMPARISON: CT lumbar spine 09/04/2021 CT chest 07/25/2014 FINDINGS: ALIGNMENT: Normal. VERTEBRAE: No fracture. Vertebral body height well-maintained. Milddiffuse thoracic spondylosis. DISC HEIGHT: Mild loss of intervertebral disc space height in the mid thoracic spine. HARDWARE: Osseous fusion in the cervical spine is only partiallyvisualized. THORACIC DISCS T1-T12: No significant osseous spinal stenosis or neuroforaminal stenosis. SOFT TISSUES: Dependent opacities lungs likely represent areas of atelectasis. LOWER CERVICAL: Incompletely imaged. No significant osseous spinalstenosis or osseous foraminal stenosis. UPPER LUMBAR: Incompletely imaged. No significant osseous spinal orosseous neuroforaminal stenosis. OTHER: No other significant abnormality. IMPRESSION: 1. No acute fracture of the thoracic spine. 2. Mild diffuse thoracic spondylosis. THIS IS AN ELECTRONICALLY VERIFIED FINAL REPORT 01/16/2022 12:57 PM - Electronically signed by Néstor Davis M.D. LB: ARVIND Report ID: [id number] Reading Location: [place] [address] Julita Lizarraga MD IMG CT PROCEDURES F inal Result documented in this encounter Visit Diagnoses Diagnosis Weakness of both lower extremities- Primary Weakness of both lower extremities Low back pain, unspecified back pain laterality, unspecified chronicity, unspecified whether sciatica present CKD (chronic kidney disease) stage 4, GFR 15-29 ml/min ([facility]) ([facility]) Chronic kidney disease, Stage IV (severe) Type 2 diabetes mellitus with diabetic neuropathy, with long-term current use of insulin ([facility]) Chronic back pain Unspecified backache documented in this encounter Admitting Diagnoses Diagnosis Weakness of both lower extremities documented in this encounter Administered Medications Inactive Administered Medications - up to 3 most recent administrations Medication Order MAR Action Action Date Dose Rate Site acetaminophen (TYLENOL) tablet 650 mg 650 mg, oral, Every 6 hours PRN, 1st line for pain, Starting on Fri01/16/22 at 2035 albuterol 2.5 mg /3 mL (0.083 %) nebulizer solution 2.5 mg 2.5 mg, nebulization, Every 6 hours 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), wheezing, Starting on Fri01/16/22 at 2112 aspirin enteric coated tablet 81 mg 81 mg, oral, Daily, First dose on Yael 01/17/22 at 0900, Do not crush, chew, cut, dissolve, open or otherwise manipulate tablet/capsule., Indications: prevention of thrombosisIndications:prevention of thrombosis Given 01/18/2022 8:13 AM CDT 81 mg Given 01/17/2022 8:09 AM CDT 81 mg atorvastatin (LIPITOR) tablet 10 mg 10 mg, oral, Nightly, First dose on Fri01/16/22 at 2145 Given 01/17/2022 9:08 PM CDT 10 mg Given 01/16/2022 9:29 PM CDT 10 mg bisacodyl EC (DULCOLAX EC) tablet 10 mg 10 mg, oral, Daily PRN, constipation, If no results 24 hours after milk of magnesia, Starting on Fri01/16/22 at 2035, Do not crush, chew, cut, dissolve, open or otherwise manipulate tablet/capsule. cloNIDine (CATAPRES) tablet 0.05 mg 0.05 mg, oral, 2 times daily, First dose on Fri01/16/22 at 2145 Given 01/18/2022 8:13 AM CDT 0.05 mg Given 01/17/2022 9:10 PM CDT 0.05 mg Given 01/17/2022 8:10 AM CDT 0.05 mg dextrose (D10W) 10% bolus 250 mL 250 mL, intravenous, at 1,000 mL/hr, Administer over 15 Minutes, Every 15 min PRN, blood glucose less than 70 mg/dL and UNABLE to swallow/take PO glucose/juice., Starting on Fri01/16/22 at 2111, After treatment for hypoglycemia, recheck BG followed by treatment every 15 minutes until the BG is greater than 100 mg/dL. Then check BG 1 hour post treatment. If BG is less than 100 mg/dL, repeat Q15 minute BG checks and treatment. Call MD for each episode of hypoglycemia., Indications: hypoglycemic disorderIndications:hypoglyce mike disorder dextrose gel in packet 15 g 15 g, oral, Every 15 min PRN, low blood sugar, blood glucose less than 70 mg/dL, Starting on Fri01/16/22 at 2111, If patient is alert and able to eat/drink, give 15 gm glucose or one juice (4 fluid ounces) NOT ORANGE JUICE. After treatment for hypoglycemia, recheck BG followed by treatment every 15 minutes until the BG is greater than 100 mg/dL. Then check BG 1 hour post-treatment. If BG is less than 100 mg/dL, repeat Q15 minute BG checks and treatment. Call MD for each episode of hypoglycemia., Indications: hypoglycemic disorderIndications:hypoglyce mike disorder enoxaparin (LOVENOX) syringe 100 mg 100 mg (rounded from 103.1 mg = 1 mg/kg ? 103.1 kg), subcutaneous, Daily (for enoxaparin), First dose on Fri01/17/22 at 1615, Indications: Venous ThrombosisIndications:Venous Thrombosis Given 01/17/2022 5:12 PM CDT 100 mg Left Lower Abdomen fluticasone propionate (FLONASE) 50 mcg/actuation nasal spray 2 spray 2 spray, each nostril, Daily, First dose on Fri01/17/22 at 0900 Given 01/18/2022 8:17 AM CDT 2 sprays Given 01/17/2022 8:10 AM CDT 2 sprays furosemide (LASIX) tablet 20 mg 20 mg, oral, Daily, First dose on Fri01/17/22 at 0900 Given 01/18/2022 8:16 AM CDT 20 mg Given 01/17/2022 8:10 AM CDT 20 mg gabapentin (NEURONTIN) capsule 100 mg 100 mg, oral, 3 times daily, First dose on Fri01/16/22 at 2145 Given 01/18/2022 4:18 PM CDT 100 mg Given 01/18/2022 8:13 AM CDT 100 mg Given 01/17/2022 9:08 PM CDT 100 mg gabapentin (NEURONTIN) capsule 100 mg 100 mg, oral, Once, On Fri01/17/22 at 0145, For 1 dose Given 01/17/2022 1:28 AM CDT 100 mg glucagon injection 1 mg 1 mg, intramuscular, Every 30 min PRN, low blood sugar, blood glucose less than 70 mg/dL AND no IV access AND unable to take PO glucose/juice., Starting on Fri01/16/22 at 2112, After Glucagon is administered, position patient on [...] 1 mL SWFI. Use immediately following reconstitution. HYDROcodone-acetaminophen (NORCO) 5-325 mg per tablet 1 tablet 1 tablet, oral, 3 times daily PRN, breakthrough pain, Starting on Fri01/16/22 at 2109, Indications: PainIndications:Pain Given 01/18/2022 2:20 P M CDT 1 tablet Given 01/17/2022 2:02 PM CDT 1 tablet Given 01/17/2022 8:14 AM CDT 1 tablet insulin glargine (LANTUS, BASAGLAR, SEMGLEE) 100 unit/mL (3 mL) pen injection 35 Units 35 Units, subcutaneous, Every morning, First dose on Fri01/17/22 at 0900, Attach new pen needle required for each administration. Each new pen needle must be primed with 2 units prior to administration. Do not mix with other insulins. Given 01/18/2022 8:18 AM CDT 35 Units Left Lower Abdomen Given 01/17/2022 8:12 AM CDT 35 Units Le ft Lower Abdomen insulin lispro (HumaLOG, ADMELOG) 100 unit/mL pen injection 0-4 Units 0-4 Units, subcutaneous, Nightly, First dose on Fri01/16/22 at 2145, Blood glucose mg/dL: 199 or less: No insulin 200-249: add 1 unit 250-299: add 2 units 300-349: add 3 units and notify physician for adjustment of insulin orders. 350-399: add 4 units and notify physician for adjustment of insulin orders. Over 400: Notify physician for adjustment of insulin orders. Do NOT hold for NPO Status Attach new pen needle required for each administration. Each new pen needle must be primed with 2 units prior to administration., Indications: Diabetes MellitusIndications:Diabetes Mellitus Given 01/17/2022 9:32 PM CDT 2 Units Left Upper Arm insulin lispro (HumaLOG, ADMELOG) 100 unit/mL pen injection 0-5 Units 0-5 Units, subcutaneous, 3 times daily with meals, First dose on Fri01/17/22 at 0800, Blood glucose mg/dL: 149 or less: No insulin 150-199: add 1 unit 200-249: add 2 units 250-299: add 3 units 300-349: add 4 units and notify physician for adjustment of insulin orders. 350-399: add 5 units and notify physician for adjustment of insulin orders. Over 400: Notify physician for adjustment of insulin orders. Do NOT hold for NPO Status Attach new pen needle required for each administration. Each new pen needle must be primed with 2 units prior to administration., Indications: Diabetes MellitusIndications:Diabetes Mellitus Given 01/18/2022 12:25 PM CDT 2 Units Left Lower Abdomen Given 01/18/2022 8:15 AM CDT 1 Units Le ft Lower Abdomen Given 01/17/2022 5:12 PM CDT 2 Units Le ft Lower Abdomen magnesium hydroxide (MILK OF MAGNESIA) 80 mg/mL (33.3 mg/mL as elemental magnesium) oral suspension 30 mL 30 mL, oral, Daily PRN, constipation, Starting on Fri01/16/22 at 2035 mineral oil (FLEET MINERAL OIL) enema 1 enema 1 enema, rectal, Daily PRN, constipation, if no results 24 hours after bisacodyl, Starting on Fri01/16/22 at 2035, Indications: constipationIndications:constipation montelukast (SINGULAIR) tablet 10 mg 10 mg, oral, Nightly, First dose on Fri01/16/22 at 2145 Given 01/17/2022 9:10 PM CDT 10 mg Given 01/16/2022 9:28 PM CDT 10 mg ondansetron (ZOFRAN) injection 4 mg 4 mg, intravenous, Administer over 2 Minutes, Every 4 hours PRN, nausea, vomiting, Starting on Fri01/16/[address] (PROTONIX) extended release tablet 40 mg 40 mg, oral, 2 times daily, First dose on Fri01/16/22 at 2145, Do not crush, chew, cut, dissolve, open or otherwise manipulate tablet/capsule., Indications: Treatment of Non-Bleeding Gastric DisorderIndications:Treatment of Non-Bleeding Gastric Disorder Given 01/18/2022 8:13 AM CDT 40 mg Given 01/17/2022 9:10 PM CDT 40 mg Given 01/17/2022 8:10 AM CDT 40 mg sodium chloride 0.9% infusion 100 mL/hr, intravenous, Continuous, Starting on Fri01/16/22 at 1745 New Bag 01/16/2022 6:23 PM CDT 100 mL/hr 100 mL/hr documented in this encounter Discontinued Medications Medication Sig Discontinue Reason Start Date End Da te aspirin-acetaminophen- caffeine (EXCEDRIN MIGRAINE) 250-250-65 mg per tablet Take 1 tablet by mouth every 6 (six) hours as needed. Therapy completed 01/16/2022 irbesartan-hydroCHLORO thiazide (AVALIDE) 300-12.5 mg per tabletIndications:Hype rtension associated with type 2 diabetes mellitus (HCC) TAKE 1 TABLET BY MOUTH EVERY DAY Therapy completed 09/12/2021 01/16/2022 traMADol (ULTRAM) 50 mg tablet take 1 tablet by ORAL route every 6 hours as needed Therapy completed 06/21/2013 01/16/2022 HYDROcodone-acetaminop hen (NORCO) 5-325 mg per tabletIndications:Pain Take 1 tablet by mouth 3 (three) times a day as needed for pain Stop Taking at Discharge 01/27/2022 01/18/2022 documented as of this encounter Active and Recently Administered Medications Times are shown in CDT. Scheduled Medication Order 01/16/2022 01/17/2022 01/18/2022 aspirin enteric coated tablet 81 mg 81 mg, oral, Daily, First dose on Fri01/17/22 at 0900, Do not crush, chew, cut, dissolve, open or otherwise manipulate tablet/capsule., Indications: prevention of thrombosis 0809 (Given - Provider: Palmira Manley RN) 08 (Given - Provider: Tanya Mendez RN) atorvastatin (LIPITOR) tablet 10 mg 10 mg, oral, Nightly, First dose on Fri01/16/22 at 2145 2129 (Given - Provider: Brandy Macdonald RN) 2107 (Given - Provider: Margoth Wayne, [place]) cloNIDine (CATAPRES) tablet 0.05 mg 0.05 mg, oral, 2 times daily, First dose on Fri01/16/22 at 2145 2129 (Given - Provider: Brandy Macdonald RN) 08 (Given - Provider: Palmira Manley RN)2109 (Given - Provider: Margoth Wayne RN) 0813 (Given - Provider: Tanya Mendez, [place]) enoxaparin (LOVENOX) syringe 100 mg 100 mg (rounded from 103.1 mg = 1 mg/kg ? 103.1 kg), subcutaneous, Daily (for enoxaparin), First dose on Fri01/17/22 at 1615, Indications: Venous Thrombosis 1712 (Given - Provider: Palmira Manley RN) fluticasone propionate (FLONASE) 50 mcg/actuation nasal spray 2 spray 2 spray, each nostril, Daily, First dose on Fri01/17/22 at 0900 0810 (Given - Provider: Palmira Manley RN) 0817 (Given - Provider: Tanya Mendez RN) furosemide (LASIX) tablet 20 mg 20 mg, oral, Daily, First dose on Fri01/17/22 at 0900 2111 (Held by Provider - Provider: Dari Rodgers MD - Reason: Pending Results) 0102 (Unheld by Provider - Provider: Dari Rodgers MD)0810 (Given - Provider: Palmira Manley RN) 0816 (Given - Provider: Tanya Mendez RN) gabapentin (NEURONTIN) capsule 100 mg 100 mg, oral, 3 times daily, First dose on Fri01/16/22 at 2145 2128 (Given - Provider: Brandy Macdonald RN) 0810 (Given - Provider: Palmira Manley RN)1515 (Given - Provider: Palmira Manley RN)2108 (Given - Provider: Margoth Wayne RN) 0813 (Given - Provider: Tanya Mendez, SE[place]STIÁN)1618 (Given - Provider: Tanya Mendez RN) gabapentin (NEURONTIN) capsule 100 mg (COMPLETED) 100 mg, oral, Once, On Fri01/17/22 at 0145, For 1 dose 0128 (Given - Provider: Brandy Macdonald RN) insulin glargine (LANTUS, BASAGLAR, SEMGLEE) 100 unit/mL (3 mL) pen injection 35 Units 35 Units, subcutaneous, Every morning, First dose on Fri01/17/22 at 0900, Attach new pen needle required for each administration. Each new pen needle must be primed with 2 units prior to administration. Do not mix with other insulins. 0812 (Given - Provider: Palmira Manley RN) 817 (Given - Provider: Tanya Mendez RN) insulin lispro (HumaLOG, ADMELOG) 100 unit/mL pen injection 0-4 Units 0-4 Units, subcutaneous, Nightly, First dose on Fri01/16/22 at 2145, Blood glucose mg/dL: 199 or less: No insulin 200-249: add 1 unit 250-299: add 2 units 300-349: add 3 units and notify physician for adjustment of insulin orders. 350-399: add 4 units and notify physician for adjustment of insulin orders. Over 400: Notify physician for adjustment of insulin orders. Do NOT hold for NPO Status Attach new pen needle required for each administration. Each new pen needle must be primed with 2 units prior to administration., Indications: Diabetes Mellitus 2120 (Not Given - Provider: Brandy Macdonald RN - Reason: Contraindicated) 2131 (Given - Provider: Margoth Wayne, [place]) insulin lispro (HumaLOG, ADMELOG) 100 unit/mL pen injection 0-5 Units 0-5 Units, subcutaneous, 3 times daily with meals, First dose on Fri01/17/22 at 0800, Blood glucose mg/dL: 149 or less: No insulin 150-199: add 1 unit 200-249: add 2 units 250-299: add 3 units 300-349: add 4 units and notify physician for adjustment of insulin orders. 350-399: add 5 units and notify physician for adjustment of insulin orders. Over 400: Notify physician for adjustment of insulin orders. Do NOT hold for NPO Status Attach new pen needle required for each administration. Each new pen needle must be primed with 2 units prior to administration., Indications: Diabetes Mellitus 0813 (Not Given - Provider: Palmira Manley RN - Reason: Order parameters not met)1402 (Not Given - Provider: Palmira Manley RN - Reason: Patient not available)1712 (Given - Provider: Palmira Manley RN) 0815 (Given - Provider: Tanya Mendez RN)1225 (Given - Provider: Tanya Mendez RN) montelukast (SINGULAIR) tablet 10 mg 10 mg, oral, Nightly, First dose on Fri01/16/22 at 2145 2127 (Given - Provider: Brandy Macdonald RN) 2109 (Given - Provider: Margoth Wayne, [place]) pantoprazole DR (PROTONIX) extended release tablet 40 mg 40 mg, oral, 2 times daily, First dose on Fri01/16/22 at 2145, Do not crush, chew, cut, dissolve, open or otherwise manipulate tablet/capsule., Indications: Treatment of Non-Bleeding Gastric Disorder 2127 (Given - Provider: Brandy Macdonald RN) 809 (Given - Provider: Palmira Manley RN)2109 (Given - Provider: Margoth Wayne, [place]N) 0813 (Given - Provider: Tanya Mendez RN) Continuous Medication Order 01/16/2022 01/17/2022 01/18/2022 sodium chloride 0.9% infusion (CANCELED) 100 mL/hr, intravenous, Continuous, Starting on Fri01/16/22 at 1745 1823 (New Bag - Provider: Palmira Manley RN) 0128 (Stopped - Provider: Brandy Macdonald RN) PRN Medication Order 01/16/2022 01/17/2022 01/18/2022 acetaminophen (TYLENOL) tablet 650 mg 650 mg, oral, Every 6 hours PRN, 1st line for pain, Starting on Fri01/16/22 at 2035 albuterol 2.5 mg /3 mL (0.083 %) nebulizer solution 2.5 mg 2.5 mg, nebulization, 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 dextrose (D10W) 10% bolus 250 mL(Linked Group 1) 250 mL, intravenous, at 1,000 mL/hr, Administer over 15 Minutes, Every 15 min PRN, blood glucose less than 70 mg/dL and UNABLE to swallow/take PO glucose/juice., Starting on Fri01/16/22 at 2111, After treatment for hypoglycemia, recheck BG followed by treatment every 15 minutes until the BG is greater than 100 mg/dL. Then check BG 1 hour post treatment. If BG is less than 100 mg/dL, repeat Q15 minute BG checks and treatment. Call MD for each episode of hypoglycemia., Indications: hypoglycemic disorder dextrose gel in packet 15 g(Linked Group 1) 15 g, oral, Every 15 min PRN, low blood sugar, blood glucose less than 70 mg/dL, Starting on Fri01/16/22 at 2111, If patient is alert and able to eat/drink, give 15 gm glucose or one juice (4 fluid ounces) NOT ORANGE JUICE. After treatment for hypoglycemia, recheck BG followed by treatment every 15 minutes until the BG is greater than 100 mg/dL. Then check BG 1 hour post-treatment. If BG is less than 100 mg/dL, repeat Q15 minute BG checks and treatment. Call MD for each episode of hypoglycemia., Indications: hypoglycemic disorder glucagon injection 1 mg 1 mg, intramuscular, Every 30 min PRN, low blood sugar, blood glucose less than 70 mg/dL AND no IV access AND unable to take PO glucose/juice., Starting on Fri01/16/22 at 2111, After Glucagon is administered, position patient on [...] 1 mL SWFI. Use immediately following reconstitution. HYDROcodone-acetaminoph en (NORCO) 5-325 mg per tablet 1 tablet 1 tablet, oral, 3 times daily PRN, breakthrough pain, Starting on Fri01/16/22 at 2108, Indications: Pain 2127 (Given - Provider: Brandy Macdonald RN) 0814 (Given - Provider: Palmira Manley, [place]STI[place]N)1402 (Given - Provider: Palmira Manley, RN) 1420 (Given - Provider: Tanya Mendez RN) magnesium hydroxide (MILK OF MAGNESIA) 80 mg/mL (33.3 mg/mL as elemental magnesium) oral suspension 30 mL 30 mL, oral, Daily PRN, constipation, Starting on Fri01/16/22 at 2035 mineral oil (FLEET MINERAL OIL) enema 1 enema 1 enema, rectal, Daily PRN, constipation, if no results 24 hours after bisacodyl, Starting on Fri01/16/22 at 2035, Indications: constipation ondansetron (ZOFRAN) injection 4 mg 4 mg, intravenous, Administer over 2 Minutes, Every 4 hours PRN, nausea, vomiting, Starting on Fri01/16/22 at 2035 Linked Groups Order Group 1: dextrose gel in packet 15 gJump to med 15 g, oral, Every 15 min PRN, low blood sugar, blood glucose less than 70 mg/dL, Starting on Fri01/16/22 at 2111, If patient is alert and able to eat/drink, give 15 gm glucose or one juice (4 fluid ounces) NOT ORANGE JUICE. After treatment for hypoglycemia, recheck BG followed by treatment every 15 minutes until the BG is greater than 100 mg/dL. Then check BG 1 hour post-treatment. If BG is less than 100 mg/dL, repeat Q15 minute BG checks and treatment. Call MD for each episode of hypoglycemia., Indications: hypoglycemic disorder Or dextrose (D10W) 10% bolus 250 mLJump to med 250 mL, intravenous, at 1,000 mL/hr, Administer over 15 Minutes, Every 15 min PRN, blood glucose less than 70 mg/dL and UNABLE to swallow/take PO glucose/juice., Starting on Fri01/16/22 at 2111, After treatment for hypoglycemia, recheck BG followed by treatment every 15 minutes until the BG is greater than 100 mg/dL. Then check BG 1 hour post treatment. If BG is less than 100 mg/dL, repeat Q15 minute BG checks and treatment. Call MD for each episode of hypoglycemia., Indications: hypoglycemic disorder documented in this encounter Orders Medications Ordered That Cash ht Not Have Been Administered Count Last Ordered Date First Ordered Date enoxaparin (LOVENOX) syringe 30 mg 1 2021 acetaminophen (TYLENOL) tablet 650 mg 1 12/2021 albuterol 2.5 mg /3 mL (0.08 3 %) nebulizer solution 2.5 mg 1 01/16/2022 albuterol HFA (PROVENTIL HFA ,VENTOLIN HFA,PROAIR HFA) 90 mcg/actuation inhaler 2 puff 1 01/16/2022 bisacodyl EC (DULCOLAX EC) tablet 10 mg 1 0 01/16/2022 dextrose (D10W) 10% bolus 250 mL 1 01/17/20 22 dextrose gel in packet 15 g 1 01/16/2022 glucagon injection 1 mg 1 01/16/2022 magnesium hydroxide (MILK OF MAGNESIA) 80 mg/mL (33.3 mg/mL as elemental magnesium) oral suspension 30 mL 1 01/16/2022 mineral oil (FLEET MINERAL O [place]) enema 1 enema 1 01/16/2022 ondansetron (ZOFRAN) injection 4 mg 1 01/16 sodium chloride 0.9% infusion 1 01/16/2022 Lab Orders Without Results Count Last Ordered D ate First Ordered Date POCT GLUCOSE DEVICE 12 01/18/2022 01/17/20 22 Nursing Count Last Ordered Date First Orde red Date WEIGH PATIENT 1 01/16/2022 Consult Count Last Ordered Date First Orde red Date IP CONSULT TO NEPHROLOGY 1 01/17/2022 IP CONSULT TO NEUROLOGY 1 01/17/2022 CORE MEASURES Count Last Ordered Date First Ord ered Date REASON FOR NO VTE PROPHYLAXI S - HOSPITAL ADMISSION - MEDICATIONS 1 01/16/2022 ADT Patient Update Count Last Ordered Date Firs t Ordered Date ED IP DECISION TO ADMIT 1 01/16/2022 documented in this encounter Care Teams Butcher'S Assistant Relationship Specialty Start Date End Date Lalito England MD [address] [place] [address] PCP - General 08/03/19 [facility], [facility] [address] [place] [address] [place] [id number] Pharmacist Pharmacy 01/04/22 01/21/22 documented as of this encounter
--- OUTSIDE RECORDS SUMMARY | 2024-07-11 22:38 | XMS_ITS | Encounter Summary ---
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 Paige. * Telephone Encounter - Rosalie Nation RN - 11/29/2021 12:48 PM CDT ----- Message from Lailto England MD sent at 11/28/2021 3:34 PM CDT ----- Spoke withp atinet. No evidence of CHF but progression of kidney disease. Please forward results toDr. Paige, nephrology and will look forward to his recommendations. He is her established electrolysis needle operator. documented in this encounter Plan of Treatment Not on file documented as of this encounter Visit Diagnoses Not on filedocumented in this encounter Care Teams Photograph Printer Relationship Specialty Start Date End Date Lalito England [place] [address] PCP - General 08/03/19 documented as of this encounter
--- OUTSIDE RECORDS SUMMARY | 2024-07-11 22:38 | XMS_ITS | Encounter Summary ---
Author Organization [facility] Address [address] [place] [address] Care Team Providers Care Flower Grower Name Role Phone Lalito England MD Primary Care Provider [phone] Encounter Details Date Type Department Care Team (Late st Contact Info) Description 11/22/2021 Telephone [facility] [address] [place] [address] Devi George MA Social History Tobacco Use Types Packs/Day [...] points, staff should administer the PHQ-9) 0 10/22/2021 Comments No Sex and Gender Information Value Date Recorded Sex Assigned at Not on file 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 * Telephone Encounter - Devi George MA - 11/22/2021 4:29 PM CDT Pt called stating that she has been experiencing dizzy spells for the past 2-3 weeks. Pt states that she has to hold onto things when standing up. Pt currently takes irbesartan, amlodipine and clonidine for blood pressure. Pt reports that she just left Dr. Caruso office and her blood pressure was 91/54 and HR was 120. Pt denies fainting/ syncope, N/V, blurred vision. Please advise thanks! documented in this encounter Plan of Treatment Not on file documented as of this encounter Visit Diagnoses Not on filedocumented in this encounter Care Teams Flower Grower Relationship Specialty Start Date End Date Lalito England MD [address] [place] [address] PCP - General 08/03/19 documented as of this encounter
--- OUTSIDE RECORDS SUMMARY | 2024-07-11 22:38 | XMS_ITS | Encounter Summary ---
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 73 m2 [facility] ([place]) Comment: [...] interpretive data was last reviewed 2021. Blood 12/06/2021 3:21 PM CDT 12/06/2021 4:34 PM CDT us Osmin Paige MD LAB BLOOD ORDERABLES Final Re sult [facility] ([place]) 1 [facility] Department [place] [address] * (ABNORMAL) Renal function panel (12/06/2021 3:21 PM CDT) Sodium 136 135 - 145 mmol/L [facility] ([place]) Potassium, pl 4.0 3.3 - 4.9 mmol/L [facility] ([place]) Chloride 100 97 - 110 mmol/L [facility] ([place]) CO2 21(L) 22 - 32 mmol/L [facility] ([place]) Anion gap 15 2 - 15 mmol/L [facility] ([place]) BUN 29(H) 8 - 25 mg/dL [facility] ([place]) Creatinine 2.31(H) 0.60 - 1.10 mg/dL [facility] ([place]) Glucose 170 70 - 199 mg/dL [facility] ([place]) [...] interpretive data was last revised 2017. Calcium 9.9 8.5 - 10.3 mg/dL [facility] ([place]) Phosphorus, pl 3.7 2.3 - 4.5 mg/dL [facility] ([place]) Albumin 3.6 3.5 - 5.0 g/dL [facility] ([place]) Blood 12/06/2021 3:21 PM CDT 12/06/2021 4:34 PM CDT us Osmin Paige MD LAB BLOOD ORDERABLES Final Re sult [facility] ([place]) 1 [facility] Department [place] [address] documented in this encounter Visit Diagnoses Not on filedocumented in this encounter Care Teams Gas Technician Relationship Specialty Start Date End Date [place] [address] PCP - General 08/03/19 documented as of this encounter
--- OUTSIDE RECORDS SUMMARY | 2024-07-11 22:38 | XMS_ITS | Encounter Summary ---
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 [address] [place] [address] David Caruso MD [address] [place] [address] [address] [place] [address] Sacroiliitis (HCC) (Primary Dx); Chronic right-sided low back pain without sciatica; DDD (degenerative disc disease), lumbar; Degenerative lumbar spinal stenosis; Lumbar post-laminectomy syndrome; Insomnia secondary to chronic pain Discharge Disposition: Discharge to home or self [...] more points, staff should administer the PHQ-9) 2 10/02/2021 Comments No Sex and Gender Information Value Date Recorded Sex Assigned at Not on file Legal Sex Female 11:52 PM [employer] Gender Identity Not on file Sexual Orientation Not on file documented as of this encounter Last Filed Vital Signs Vital Sign Reading Time Taken Comments Blood Pressure 103/56 10/16/2021 10:10 AM CDT Pulse 104 10/16/2021 10:10 AM CDT Temperature 36.5 ??C (97.7 ??F) 10/16/2021 9:45 AM CD T Respiratory Rate 17 10/16/2021 10:10 AM CDT Oxygen Saturation 96% 10/16/2021 10:10 AM CDT Inhaled Oxygen Concentration - - Weight - - Height - - Body Mass Index - - documented in this encounter Discharge Instructions * Discharge Instructions* Kath Bradley RN - 10/16/2021 10:10 AM CDT Discharge instructions reviewed. Signed copy given to patient. Patient verbalized understanding. Patient to return as instructed in 2-3 weeks for 2nd right SIJ injection. documented in this encounter Medications at Time of Discharge blood-glucose meter (CONTOUR NEXT USB METER) misc test as directed 1 each 0 07/04/2014 lancets (MICROLET LANCET) misc test by fingerstick route 3 times daily 300 each 3 07/26/2015 albuterol HFA (PROVENTIL HFA,VENTOLIN HFA) 90 mcg/actuation inhaler Inhale 2 puffs every 6 (six) hours as needed for wheezing. 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 2 blood glucose diagnostic (Contour Next Test Strips) strip Test blood sugar 3 times a day and will montior response. Dx: E11.22. 300 each 3 07/17/2020 3 calcium carbonate-vitamin D3 500 mg(1,250mg) -400 unit tablet Take one by mouth two times per day 0 0 08/10/2007 4 cloNIDine (CATAPRES) 0.1 mg tabletIndications: Hypertension associated with type 2 diabetes mellitus (HCC) TAKE 1/2 TABLET BY MOUTH TWO TIMES A DAY 90 tablet 1 06/25/2021 2 cyclobenzaprine (FLEXERIL) 10 mg tablet Take 1 tablet (10 mg total) by mouth nightly as needed for muscle spasms 30 tablet 2 10/02/[address] (CYMBALTA) 30 mg capsule Take 1 capsule (30 mg total) by mouth daily 30 capsule 09/07/2021 2 fluticasone propionate (FLONASE) 50 mcg/actuation nasal sprayIndications:S easonal allergic rhinitis due to pollen SPRAY 2 SPRAYS INTO EACH NOSTRIL EVERY DAY 48 mL 1 05/07/2021 2 furosemide (LASIX) 20 mg tabletIndications: Hypertension associated with type 2 diabetes mellitus (HCC) TAKE 1 TABLET BY MOUTH EVERY DAY 90 tablet 1 08/13/2021 2 gabapentin (NEURONTIN) 100 mg capsule Take 1 capsule (100 mg total) by mouth 3 (three) times a day 90 capsule 11 07/09/2021 3 glipiZIDE (GLUCOTROL) 5 mg tabletIndications: type 2 diabetes mellitus Take 0.5 tablets (2.5 mg total) by mouth daily as needed (with largest meal of the day) 45 tablet 1 07/05/2021 3 irbesartan-hydroCH LOROthiazide (AVALIDE) 300-12.5 mg per tabletIndications: Hypertension associated with type 2 diabetes mellitus (HCC) TAKE 1 TABLET BY MOUTH EVERY DAY 90 tablet 1 09/12/2021 2 LANTUS 100 unit/mL (3 mL) pen for injectionIndicatio ns:Controlled type 2 diabetes mellitus with diabetic polyneuropathy, without long-term current use of insulin (HCC) INJECT 48 UNITS UNDER THE SKIN DAILY 90 mL 1 05/07/2021 2 montelukast (SINGULAIR) 10 mg tablet TAKE 1 TABLET BY MOUTH EVERYDAY AT BEDTIME 90 tablet 1 08/13/2021 2 NovoLOG 100 unit/mL (3 mL) pen for injectionIndicatio ns:Controlled type 2 diabetes mellitus with diabetic polyneuropathy, without long-term current use of insulin (HCC) INJECT 32 UNITS UNDER THE SKIN 3 (THREE) TIMES A DAY BEFORE MEALS 84 mL 2 09/11/[address] (PROTONIX) 40 mg EC tabletIndications: Gastroesophageal reflux disease TAKE 1 TABLET BY MOUTH TWICE A DAY 180 tablet 1 05/18/2021 2 pen needle, diabetic (BD Ultra-Fine Mini Pen Needle) 31 gauge x 3/16 needle 1 needle as directed 300 each 3 05/28/2021 3 simvastatin (ZOCOR) 40 mg tabletIndications: Controlled type 2 diabetes mellitus with diabetic polyneuropathy, without long-term current use of insulin (HCC) TAKE 1 TABLET BY MOUTH EVERY DAY AT NIGHT 90 tablet 1 08/23/2021 2 traMADol (ULTRAM) 50 mg tablet take 1 tablet by ORAL route every 6 hours as needed 60 2 06/21/2013 2 documented as of this encounter Discharge Disposition Disposition Code Departure Means Destination Discharge to home or self care documented in this encounter Progress Notes * David Caruso MD - 10/16/2021 10:00 AM CDT Patient Name: Criss Ly : 1950 Today's Date: 10/15/2021 PCP: Lalito England MD Referring: No ref. provider found Patient Active Problem List Diagnosis ??? Hyperlipidemia ??? Type 2 diabetes mellitus with stage 3 chronic kidney disease, with long-term current use of insulin ([facility]) ??? Disorder of peripheral nervous system (CMS/HCC) ??? Class 2 severe obesity due to excess calories with serious comorbidity and body mass index (BMI) of 37.0 to 37.9 in adult ([facility]) ??? Hypertension ??? Fever ??? Arthralgia of hip ??? Adenomatous polyp of colon ??? Sarcoidosis of lung (CMS/HCC) ([facility]) ??? Idiopathic osteoporosis with pathological fracture ??? Healthcare maintenance ??? Medication management ??? Hx of colonic polyps ??? Family hx of colon cancer ??? Persistent vomiting ??? DDD (degenerative disc disease), lumbar ??? Degenerative lumbar spinal stenosis ??? Lumbar post-laminectomy syndrome ??? Morbid (severe) obesity due to excess calories ([facility]) ??? CKD (chronic kidney disease) stage 4, GFR 15-29 ml/min (CMS/HCC) ([facility]) ??? Sacroiliitis ([facility]) ??? Cervicalgia ??? Chronic right-sided low back pain without sciatica ??? Insomnia secondary to chronic pain ??? Degenerative cervical spinal stenosis ??? Degenerative disc disease, cervical Allergies Allergen Reactions ??? Hydrocodone Other (See comments) Reaction: migraines, , , can take tylenol Past Medical History: Diagnosis Date ??? Benign hypertension with CKD (chronic kidney disease) stage III ([facility]) ??? Gastroesophageal reflux disease GERD ??? HX OTHER MEDICAL PMO ??? 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 HX OTHER MEDICAL [facility] OA ??? [...] of previous hip arthroplasty left hip; Comments: [facility] TCU unit 02/06 - 02/17/16 for rehabilitation. [...] REDUCTION MAMMAPLASTY Bilateral 2008 ??? TONSILLECTOMY tonsillectomy Social History Socioeconomic History ??? Marital status: Spouse name: Not on file ??? Number of children: Not on file ??? Years of education: Not on file ??? Highest education level: Not on file Occupational History ??? Not on file Tobacco Use ??? Smoking status: Never Smoker ??? Smokeless tobacco: Never Used Vaping Use ??? Vaping Use: Never used Substance and Sexual Activity ??? Alcohol use: Yes Comment: occasional ??? Drug use: Never ??? Sexual activity: Defer Other Topics Concern ??? Not on file Social History Narrative ??? Not on file Social Determinants of Health Financial Resource Strain: Not on file Food Insecurity: Not on file Transportation Needs: Not on file Physical Activity: Not on file Stress: Not on file Social Connections: Not on file Intimate Partner Violence: Not on file Housing Stability: Not on file Family History Problem Relation Age of Onset ??? Heart disease Father Heart disease; ??? Heart failure Father CHF; Cause of : CHF ??? Colon cancer Father ??? Diabetes Mother Diabetes mellitus; ??? Hypertension Mother Hypertension; ??? Diabetes Brother Diabetes mellitus; ??? Cancer Brother ??? Lymphoma Brother Cancer -lymphoma; ??? Stroke Brother ??? Hypertension Brother HOME MEDICATIONS : albuterol HFA (PROVENTIL HFA,VENTOLIN HFA) 90 mcg/actuation inhaler alendronate (FOSAMAX) 70 mg tablet amLODIPine (NORVASC) 5 mg tablet aspirin 81 mg enteric coated tablet hkujiqz-ssubeoxzzdpiu-arerritb (EXCEDRIN MIGRAINE) 250-250-65 mg per tablet blood glucose diagnostic (Contour Next Test Strips) strip blood-glucose meter (CONTOUR NEXT USB METER) misc calcium carbonate-vitamin D3 500 mg(1,250mg) -400 unit tablet cloNIDine (CATAPRES) 0.1 mg tablet cyclobenzaprine (FLEXERIL) [address] (CYMBALTA) 30 mg capsule fluticasone propionate (FLONASE) 50 mcg/actuation nasal spray furosemide (LASIX) 20 mg tablet gabapentin (NEURONTIN) 100 mg capsule glipiZIDE (GLUCOTROL) 5 mg tablet irbesartan-hydroCHLOROthiazide (AVALIDE) 300-12.5 mg per tablet lancets (MICROLET LANCET) misc LANTUS 100 unit/mL (3 mL) pen for injection montelukast (SINGULAIR) 10 mg tablet NovoLOG 100 unit/mL (3 mL) pen for injection pantoprazole DR (PROTONIX) 40 mg EC tablet pen needle, diabetic (BD Ultra-Fine Mini Pen Needle) 31 gauge x 3/16 needle simvastatin (ZOCOR) 40 mg tablet traMADol (ULTRAM) 50 mg tablet There were no vitals filed for this visit. PE: They are awake, alert, and oriented x3 today. HEENT- WNL RESP- WNL CARDIO- WNL ABD- WNL EXTR- WNL Impression: Sacroiliitis, lumbago, lumbar degenerative disc disease, degenerative lumbar spinal stenosis, lumbar post laminectomy syndrome, and insomnia secondary to chronic pain. Planned Procedure: Right Sacroiliac Joint Steroid Injection.#1 Problem List Musculoskeletal and Injuries Lumbar post-laminectomy syndrome Sacroiliitis (HCC) - Primary Chronic right-sided low back pain without sciatica Neuro DDD (degenerative disc disease), lumbar Degenerative lumbar spinal stenosis Insomnia secondary to chronic pain David Caruso MD 10/15/2021 documented in this encounter Miscellaneous Notes * Op Note - David Caruso MD - 10/16/2021 10:00 AM CDT Procedure: Right Sacroiliac Joint Steroid Injection under Fluoroscopic Guidance #1 Pre-procedure Diagnosis: Sacroiliitis, lumbago, lumbar degenerative disc disease, degenerative lumbar spinal stenosis, lumbar post laminectomy syndrome, and insomnia secondary to chronic pain. Post-operative Diagnosis: Same Surgeon: David Caruso MD Complications: None Description of Procedure: The risks, benefits, and complications related to the procedure were discussed, and written informed consent was obtained. The most recent history and physical exam was reviewed and there were no changes noted. Criss Craig was then brought to the procedure room and allowed to place themself in the prone position on the fluoroscopy table. The back was prepped with Betadine x3 and draped in the usual sterile fashion. Fluoroscopy was utilized to identify the inferior pole of the right sacroiliacjoint. The skin and subcutaneous tissue overlying the inferior joint margin were anesthetized with 3 ml 1% lidocaine. Next, a #22g bent tip spinal needle was advanced under fluoroscopic guidance until it lie within the joint space. The needle tip position was confirmed in the AP and Lateral position. After negative aspiration, 2 ml Omnipaque 240 was injected easily and intra articular spread was confirmed in the AP and Lateral view. Finally a solution consisting of 80 mg of Kenalog in 2.0 ml PSF 1% lidocaine was injected easily. Criss Ly tolerated the procedure well and there were no apparent complications. The patient was observed in the recovery following the procedure. Post-op instructions were reviewed. Postprocedure the patient reports 100% relief of her pain secondary to the local anesthetic. Thank you for allowing me to participate in the care of this pleasant patient. Problem List: Problem List Musculoskeletal and Injuries Lumbar post-laminectomy syndrome Sacroiliitis (HCC) - Primary Chronic right-sided low back pain without sciatica Neuro DDD (degenerative disc disease), lumbar Degenerative lumbar spinal stenosis Insomnia secondary to chronic pain David Caruso MD 10/16/2021 documented in this encounter Plan of Treatment Not on file documented as of this encounter Visit Diagnoses Diagnosis Sacroiliitis (HCC)- Primary Sacroiliitis, not elsewhere classified Chronic right-sided low back pain without sciatica DDD (degenerative disc disease), lumbar Degeneration of lumbar or lumbosacral intervertebral disc Degenerative lumbar spinal stenosis Spinal stenosis of lumbar region Lumbar post-laminectomy syndrome Postlaminectomy syndrome, lumbar region Insomnia secondary to chronic pain documented in this encounter Administered Medications Inactive Administered Medications - up to 3 most recent administrations Medication Order MAR Action Action Date Dose Rate Site iohexoL (OMNIPAQUE) 240 mg iodine/mL injection solution As needed, Starting on 10/16/21 at 1003, Intra-Op Given 10/16/2021 10:03 AM CDT 2 mL Back lidocaine PF (XYLOCAINE) 10 mg/mL (1 %) preservative free injection As needed, Starting on 10/16/21 at 1004, Intra-Op Given 10/16/2021 10:04 AM CDT 3 mL Back triamcinolone (KENALOG) 40 mg/mL injection As needed, Starting on 10/16/21 at 1003, Intra-Op Given 10/16/2021 10:03 AM CDT 80 mg documented in this encounter Care Teams Entertainer & Comic Relationship Specialty Start Date End Date Lalito England MD [address] [place] [address] PCP - General 08/03/19 documented as of this encounter
--- OUTSIDE RECORDS SUMMARY | 2024-07-11 22:38 | XMS_ITS | Encounter Summary ---
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 Name Role Phone Lalito England MD Primary Care Provider [phone] Reason for Visit * Reason Comments Follow-up Post injection Encounter Details Date Type Department Care Team (Latest Contact Info) Description 11/22/2021 2:29 PM CDT - 11/22/2021 11:59 PM CDT Hospital Encounter [facility] [address] [place] [address] [address] [place] [address] David Caruso MD [address] [place] [address] [address] [place] [address] Sacroiliitis (HCC) (Primary Dx); Chronic right-sided low back pain without sciatica; DDD (degenerative disc disease), lumbar; Degenerative lumbar spinal stenosis; Lumbar post-laminectomy syndrome; Insomnia secondary to chronic pain; Cervicalgia; Degenerative disc disease, cervical; Degenerative cervical spinal stenosis Discharge Disposition: Discharge [...] on file 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 Patient Education Epidural Steroid Injection [employer]: What you need to know about an epidural steroid injection (LAXMI): An LAXMI is a procedure to inject steroid medicine into the epidural space. The epidural space is between your spinal cord and vertebrae. Steroids reduce inflammation and fluid buildup in your spine that may be causing pain. You may be given pain medicine along with the steroids. How to prepare for an LAXMI: Your healthcare provider will talk to you about how to prepare for your procedure. He will tell you what medicines to take or not take on the day of your procedure. You mayneed to stop taking blood thinners or other medicines several days before your procedure. You may need to adjust any diabetes medicine you take on the day of your procedure. Steroid medicine can increase your blood sugar level. What will happen during an LAXMI: ?? You will be given medicine to numb the procedure area. You will be awake for the procedure, but you will not feel pain. You may also be given medicine to help you relax during the procedure. Contrast liquid will be used to help your healthcare provider see the area better. Tell the healthcare provider if you have ever had an allergic reaction to contrast liquid. ?? Your healthcare provider may place the needle into your neck area, middle of your back, or tailbone area. He may inject the medicine next to the nerves that are causing your pain. He may instead inject the medicine into a larger area of the epidural space. This helps the medicine spread to more nerves. Your healthcare provider will use a fluoroscope to help guide the needle to the right place.A fluoroscope is a type of x-ray. After the procedure, a bandage will be placed over the injection site to prevent infection. Risks of an LAXMI: You may have temporary or permanent nerve damage or paralysis. You may have bleeding or develop a serious infection, such as meningitis (swelling of the brain coverings). An abscess may also develop. You may need surgery to fix the abscess. You may have a seizure, anxiety, or trouble sleeping. If you are a man, you may have temporary erectile dysfunction (not able to have an erection). Care for your wound as directed: You may remove the bandage before you go to bed the day of your procedure. You may take a shower, but do not take a bath for at least 24 hours. Self-care: ?? Do not drive, use machines, or do strenuous activity for 24 hours after your procedure or as directed. ?? Continue other treatments as directed. Steroid injections alone will not control your pain. The injections are meant to be used with other treatments, such as physical therapy. Seek care immediately if: ?? Blood soaks through your bandage. ?? Your wound is red, swollen, or draining pus. ?? You have a fever or chills, severe back pain, and the procedure area is sensitive to the touch. ?? You have a seizure. ?? You have trouble moving your legs. ?? You have weakness or numbness in your legs. ?? You cannot control when you urinate or have a bowel movement. Contact your healthcare provider if: ?? You have nausea or are vomiting. ?? Your face or neck is red for a few days and you feel warm. ?? You have more pain than you had before the procedure. ?? You have swelling in your hands or feet. ?? You have questions or concerns about your condition or care. Follow up with your healthcare provider as directed: Write down your questions so you remember to ask them during your visits. ?? 2017 [employer] Information is for End User's use only and may not be sold, redistributed or otherwise used for commercial purposes. All illustrations and images included in CareNotes?? are the copyrighted property of [employer]. or [employer]. The above information is an educational psychology teacher only. It is not intended as medical advice for individual conditions or treatments. Talk to your doctor, nurse or pharmacist before following any medical regimen to see if it is safe and effective for you. 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 4 aspirin-acetaminop hen-caffeine (EXCEDRIN MIGRAINE) [...] muscle spasms 30 tablet 2 10/02/2021 2 fluticasone propionate (FLONASE) 50 mcg/actuation nasal [...] of insulin ([facility]) INJECT 48 UNITS UNDER THE SKIN DAILY 90 mL 1 05/07/2021 2 montelukast (SINGULAIR) 10 mg tablet TAKE 1 TABLET BY MOUTH EVERYDAY AT BEDTIME 90 tablet 1 08/13/2021 2 NovoLOG 100 unit/mL (3 mL) pen for injectionIndicatio ns:Controlled type 2 diabetes mellitus with diabetic polyneuropathy, without long-term current use of insulin ([facility]) INJECT 32 UNITS UNDER THE SKIN 3 [...] Progress Notes * David Caruso MD - 11/22/2021 2:45 PM CDT Patient Name: Criss Ly : 1950 Today's Date: 11/22/2021 PCP: Lalito England MD Referring: No ref. provider found Chief Complaint Patient presents with ??? Follow-up Post injection HPI Criss Ly is a 71 y.o. year old female seen in consultation today for No ref. provider found. Today she returns to the [facility] with a report of 0% long-term relief of her low back pain following 2 right sacroiliac joint steroid injections. She continues with a Chief Complaint of right low back and buttock pain, she denies any leg pain. Her pain began in 2019. Initiating Events include none that she can recall. In the past in 2007, and in 2008 she had both cervical and lumbar surgery however she states that these procedures resolved her pain and she was actually pain-freeuntil 2019. The pain is described as an intermittent sharp pain. Her pain rates Currently 0/10 on the numeric pain scale. At Worst 10/10 Provocative maneuvers include standing, walking, bending, and at the end the day., At Best 0/10 Alleviating maneuvers include rest, changing position, and distraction. With regard to additional symptoms the patient reports right hand weakness. She denies any leg Weakness, She reports right finger and occasional right leg Numbness. She denies bowel or bladder incontinence. She reports chronic pain associated Insomnia. Therapeutic modalities attempted to date include a right sacroiliac joint steroid injection provided her no relief, Cymbalta provides her no relief, Flexeril provides her relief primarily of her cervical pain, gabapentin provides her some relief, tramadol provides her some relief, tizanidine provides her no relief, lumbar spine steroid injections provide her no relief, radiofrequency ablation of her lumbar spine provided her no relief, heat provides her relief, and she is allergic to hydrocodone. Pain Score: 0 - No pain Pain Location: Back (Lumbar) Pain Radiating Towards: right buttock Pain Descriptors: Numbness;Sharp Pain Frequency: Intermittent Pain Onset: Ongoing Clinical Progression: Gradually improving Effect of Pain on Daily Activities: has some difficulty, pt is limiting activity Allergies Allergen Reactions ??? Hydrocodone Other (See comments) Reaction: migraines, , , can take tylenol Past Medical History: Diagnosis Date ??? Benign hypertension with CKD (chronic kidney disease) stage III (HCC) ??? Gastroesophageal reflux disease GERD ??? HX OTHER MEDICAL PMO ??? 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 HX OTHER MEDICAL [facility] OA ??? HX OTHER MEDICAL 2008 Discectomy, cervical ??? HX OTHER MEDICAL Fall ??? HX OTHER MEDICAL Left proximal femoral Gamma Nail fixation proximal; Comments: [facility] 07/25/2015 - ??? HX OTHER MEDICAL RTKR 2001.; Comments: [facility] 07/25/2015 - ??? HX OTHER MEDICAL LTKR 2006.; Comments: [facility] 07/25/2015 - ??? HX OTHER MEDICAL Back surgery 2007.; Comments: [facility] 07/25/2015 - ??? HX OTHER MEDICAL Cervical disc surg. 2008.; Comments: [facility] 07/25/2015 - ??? HX OTHER MEDICAL Breast reduction 2009.; Comments: [facility] 07/25/2015 - ??? HX OTHER MEDICAL left hip and leg surgery ??? HX OTHER MEDICAL conversion of previous hip arthroplasty left hip; Comments: [facility] unit 02/06 - 02/17/16 for rehabilitation. [...] tablet aspirin 81 mg enteric coated tablet wotzjif-twnbwadwdbhnd-yhoslrhi (EXCEDRIN MIGRAINE) 250-250-65 mg per tablet blood [...] mg tablet traMADol (ULTRAM) 50 mg tablet Review of Systems Review of Systems Constitutional: Negative for activity change and fatigue. HENT: Negative for congestion, ear pain, sinus pressure, sinus pain and trouble swallowing. Eyes: Negative for pain. Respiratory: Negative for shortness of breath and wheezing. Cardiovascular: Negative for chest pain. Gastrointestinal: Negative for abdominal pain, nausea, rectal pain and vomiting. Endocrine: Negative for cold intolerance and heat intolerance. Genitourinary: Negative for flank pain. Musculoskeletal: Positive for back pain (Her chief complaint is right low back and buttock pain) and neck pain ( she reports central neck pain with radiation to bilateral shoulders). Negative for arthralgias, myalgias and neck stiffness. Skin: Negative for rash. Allergic/Immunologic: Negative for immunocompromised state. Neurological: Positive for weakness ( she reports right hand weakness) and numbness ( she reports right finger and occasional right leg numbness). Negative for seizures and headaches. Hematological: Does not bruise/bleed easily. Psychiatric/Behavioral: Positive for sleep disturbance ( she reports insomnia secondary to chronic pain). The patient is not nervous/anxious. Physical Exam Vitals: 11/22/21 1455 BP: 91/54 BP Location: Right arm Patient Position: Sitting Pulse: 120 Resp: 17 SpO2: 98% There is no height or weight on file to calculate BMI. Physical Exam Vitals and nursing note reviewed. Constitutional: General: She is awake. Appearance: Normal appearance. She is well-developed and well-groomed. HENT: Head: Normocephalic and atraumatic. Nose: Nose normal. Eyes: Pupils: Pupils are equal, round, and reactive to light. Neck: Trachea: No tracheal deviation. Cardiovascular: Rate and Rhythm: Normal rate and regular rhythm. Pulmonary: Effort: Pulmonary effort is normal. Breath sounds: Normal breath sounds. Musculoskeletal: General: Normal range of motion. Cervical back: Normal range of motion and neck supple. Skin: General: Skin is warm and dry. Neurological: Mental Status: She is alert and oriented to person, place, and time. Psychiatric: Attention and Perception: Attention and perception normal. Mood and Affect: Mood and affect normal. Speech: Speech normal. Behavior: Behavior normal. Behavior is cooperative. Thought Content: Thought content normal. Cognition and Memory: Cognition and memory normal. Judgment: Judgment normal. Gait is within normal limits Toe Stand is bilaterally reduced Heel Stand is bilaterally reduced Neck: Inspection is clean, dry, and intact; no lesions are noted. Palpation produces bilateral diffuse tenderness. Percussion produces no pain Cervical Flexion 40 degrees produces concordant neck pain Extension 30 degrees produces concordant neck pain Right Lateral Flexion 30 degrees produces concordant neck pain Left Lateral Flexion 30 degrees produces concordant neck pain Upper Extremity: Motor bilaterally 5/5 equal and intact Sensory bilaterally equal and intact DTR's Biceps Right 0/4 Left 0/4 Triceps Right 0/4 Left 0/4 Brachioradialis Right 0/4 Left 0/4 Low Back: Inspection is clean, dry, and intact, no lesions are noted. A well-healed postsurgical midline scaris noted. Palpation produces right-sided paraspinous lumbar pain. The left side produces no pain. Percussion produces no pain Lumbar Flexion 60 degrees produces no pain Extension 20 degrees produces concordant right low back pain Right Lateral Flexion 20 degrees produces concordant right low back pain Left Lateral Flexion 20 degrees produces no pain Lower Extremity: Motor bilaterally 5/5 equal and intact Sensory bilaterally equal and intact DTR's Patellar Right 0/4 Left 0/4 Achilles Right 0/4 Left 0/4 Straight leg Raise Right 70 degrees produces no pain DFF no change Left 70 degrees produces no pain DFF no change Ander's Test Right positive produces concordant right low back pain Left negative produces no pain FABERs Test Right positive produces concordant right low back pain Left negative produces no pain Imaging: EXAM DESCRIPTION: CT CERVICAL SPINE WO CONTRAST REASON FOR STUDY: Cervical radiculopathy, prior cervical surgery ?? Neck pain, lower c-spine for about 1 year. Pt states she has had 4 discs in her neck replaced in the past. TECHNIQUE: Axial images through the cervical spine with sagittal and coronal reformatted images. Automated exposure control was used as a dose optimization technique for this examination. COMPARISON: None available. FINDINGS: ALIGNMENT: Reversal of the normal cervical lordosis. There is grade 1 anterolisthesis of C2 on C3. ?? VERTEBRAE: Osseous structures are diffusely demineralized and limits the evaluation for a subtle nondisplaced fracture. Moderate endplate degenerative changes and marginal spur formation at C7-T1 and to lesser extent remainder of the non operative levels. There is diffuse facet arthropathy including at C2-C3 on both sides and on the right at C7-T1. Partial osseous fusion across the left C3-C4 facet joint. ?? DISCS: Moderate to severe intervertebral disc height loss at C7-T1 and to lesser extent C2-C3. ?? HARDWARE: Mature osseous fusion across the C3-C4 through C6-C7 disc spaces. ?? INDIVIDUAL DISC LEVELS: Suboptimal evaluated by unenhanced CT technique. ?? C2-C3: Anterolisthesis of C2 on C3 with unroofing the disc. Thickened ligamentum flavum. No significant osseous spinal canal stenosis. Uncovertebral spurring and facet arthropathy with moderate osseous neural foraminal narrowing. ?? C3-C4: Surgical level. There is osteophytic ridging without significant osseous spinal canal stenosis. Uncovertebral spurring and facet arthropathy with mild right and moderate left osseous neural foraminal narrowing. ?? C4-C5: Surgical level. There is osteophytic ridging without significant osseous spinal canal stenosis. Uncovertebral spurring and facet arthropathy with moderate left and no significant right osseous neural foraminal narrowing. ?? C5-C6: Surgical level. There is osteophytic ridging and thickened ligamentum flavum. Kket-uf-gjrrixod osseous spinal canal stenosis. Uncovertebral spurring and facet arthropathy with moderate bilateral osseous neural foraminal narrowing. ?? C6-C7: Surgical level. Osteophytic ridging and thickened ligamentum flavum. Lwnr-ja-viasescx osseous spinal canal stenosis. Uncovertebral spurring and facet arthropathy with severe right and mild left osseous neural foraminal narrowing. ?? C7-T1: Evaluation limited by patient's body habitus and lack of contrast. Posterior disc osteophyte complex with thickened ligamentum flavum. Suspect spinal canal stenosis. Uncovertebral spurring and facet arthropathy with mild left and no significant right osseous neural foraminal narrowing. ?? UPPER THORACIC: Incompletely imaged. No high-grade osseous spinal canal stenosis. ?? LUNG APICES: No focal pneumonic consolidation. ?? NECK SOFT TISSUES: Calcified plaque at the carotid vasculature. IMPRESSION: ?? 1. Mature osseous fusion from C3-C4 through C6-C7. 2. Moderate to advanced degenerative changes in the cervical spine as above. 3. Prior imaging studies are not available for comparison. ? THIS IS AN ELECTRONICALLY VERIFIED FINAL REPORT 09/05/2021 1:26 PM - Electronically signed by Emil Stacy D.O. ?? AP: AP ?? EXAM DESCRIPTION: CT LUMBAR SPINE WO CONTRAST REASON FOR STUDY: lumbar radiculopathy ?? Lumbar spine pain for 1 year getting worse. Hx of lumbar decompression. TECHNIQUE: Axial images acquired through the lumbar spine without intravenous contrast. Reconstructed coronal and sagittal MPR images reviewed. All images stored on PACS. ?? Automated exposure control was used as a dose optimization technique for this examination. COMPARISON: Lumbar spine MRI dated 01/26/2018. FINDINGS: SEGMENTATION: 5 hhw-cih-mrhnmyn lumbar type vertebral bodies. ?? ALIGNMENT: There is mild dextroconvex curvature. Grade 1 anterolisthesis of L4 on L5 and grade 1 retrolisthesis of L5 on S1. ?? VERTEBRAE: The osseous structures are diffusely demineralized and limits the evaluation for a subtle nondisplaced fracture. Severe endplate degenerative changes with marginal spur formation from L2-L3 through L4-L5 and to lesser extent L5-S1 and L1-L2. Multilevel moderate to marked facet arthropathy. ?? DISC HEIGHT: Severe intervertebral disc height loss with vacuum disc phenomenon at L2-L3 through L5-S1 and to lesser extent L5-S1. Mild L1-L2 intervertebral disc height loss. ?? HARDWARE: None in the spine. ?? INDIVIDUAL DISC LEVELS: Suboptimal evaluation by unenhanced CT technique. ?? L1-L2: Disc bulge with marginal spur formation. Thickened ligamentum flavum and facet arthropathy. Mild osseous spinal canal stenosis. No significant osseous neural foraminal narrowing. ?? L2-L3: Disc bulge and a superimposed central through right neural foraminal disc protrusion with marginal spur formation. Thickened ligamentum flavum and facet arthropathy. Moderate to severe osseous spinal canal stenosis. Moderate right and mild left osseous neural foraminal narrowing. ?? L3-L4: Surgical level. Left laminotomy defect. There is a disc bulge with marginal spur formation. Remaining thickened ligamentum flavum and facet arthropathy. Moderate osseous spinal canal stenosis. There is right greater than left lateral recess narrowing. Moderate bilateral osseous neural foraminal narrowing. ?? L4-L5: Surgical level. Left laminectomy defect. There is anterolisthesis of L4 on L5 with unroofing of the disc. Marginal spur formation with remaining thickened ligamentum flavum and facet arthropathy. Severe osseous spinal canal stenosis. There is lateral recess narrowing on both sides. Severe bilateral neural foraminal narrowing. ?? L5-S1: Question a a remote right laminotomy or developmental/chronic posttraumatic change. Disc bulge and a superimposed central disc protrusion. Marginal spur formation and bilateral facet arthropathy. Epidural lipomatosis. Mild spinal canal stenosis. Lateral recess narrowing on both sides. Wmzi-qc-tkmtzfvy right and mild left neural foraminal narrowing. ?? SOFT TISSUES: Calcified plaque at the abdominal aorta and iliac vasculature. Nonspecific 1 cm right retroperitoneal lymph node just superior to the right kidney. ?? OTHER: Degenerative changes at the imaged portions of the bilateral sacroiliac joints. IMPRESSION: ?? 1. Multilevel moderate to advanced lumbar spondylotic changes as described. Severe spinal canal narrowing at L4-L5 and to lesser extent L2-L3 and L3-L4. 2. Varying degrees of bilateral neural foraminal narrowing ranging up to severe. 3. Remote postoperative changes and additional findings as discussed. 4. Nonspecific right retroperitoneal 1 cm lymph node. ? THIS IS AN ELECTRONICALLY VERIFIED FINAL REPORT 09/05/2021 1:39 PM - Electronically signed by Emil Stacy D.O. ?? AP: [facility] MRI LUMBAR SPINE WO CONTRAST ?? HISTORY: Low back pain. ?? TECHNIQUE: Sagittal T1, T2, STIR; axial T1, T2. ?? COMPARISON: Lumbar CT myelogram on 05/03/2005. ?? FINDINGS: Vertebral body height is normal. L2 is subluxed posteriorly on L3 approximately 6 mm. L4 is subluxed anteriorly on L5 approximately 5 mm. L2-L3 disc space is mildly narrowed; L3-L4 disc space is moderately narrowed; L4-L5 disc space is mildly narrowed. There are reactive changes in marrow adjacent to vertebral endplates, particularly at L4-L5. Moderate spurring anteriorly is seen at L2-L3 and L3-L4; mild at L4-L5. ?? At L1-L2, disc appears normal. Ligamentum flavum thickening is mild. There is no significant stenosis. ?? At L2-L3, mild diffuse disc bulging combines with facet osteoarthritis and ligamentum flavum thickening to cause mild central canal stenosis. ?? At L3-L4, mild diffuse disc bulging, mild facet osteoarthritis and mild ligamentum flavum thickening combine to cause mild central canal and bilateral foraminal stenosis. Small laminectomy defect is seen on the left at this level. ?? At L4-L5, right paracentral disc protrusion along with mild diffuse disc bulging combines with some ligamentum flavum thickening and facet osteoarthritis to cause mild to moderate central canal and bilateral foraminal stenosis. Small laminectomy defect is seen on the left at this level. ?? At L5-S1, there is mild central disc protrusion and mild bilateral facet osteoarthritis. No significant stenosis is seen at this level. ?? No intraspinal, perispinal or paravertebral mass is identified. ?? IMPRESSION: 1. Mild right paracentral disc protrusion at L4-L5 and mild central disc protrusion at L5-S1. 2. Mild disc bulging at L2-L3 and L3-L4. 3. Mild to moderate central canal and bilateral foraminal stenosis at L4-L5; mild at L2-L3 and L3-L4. 4. Suggestion of small laminectomy defects on the left at L3-L4 and L4-L5. 5. Minimal retrolisthesis of L2 on L3 and anterolisthesis of L4 on L5. 6. Variable degrees of degenerative disc disease and disc space narrowing from L2-L3 through L4-L5. ?? Electronically signed by: Prashanth Delgado Jr., M.D. Review of Data: Checked the [place] [employer] sheet and it was consistent with our meds. UDT results: A sample was not obtained The patient was not given a prescription for intranasal Narcan for the management of opioid inducedrespiratory depression or excess sedation. I reviewed the [place] Prescription Monitoring Program printout and it was consistent and appropriate. The patient denies the use of Tobacco The patient has a diagnosis of hypertension that is managed by her primary care physician. Assessment: Based on the history, physical exam, MRI of her lumbar spine, and CT scan of her cervical and lumbar spine my impression is the patient has a primary diagnosis of lumbar radiculopathy, lumbago, lumbar degenerative disc disease, degenerative lumbar spinal stenosis, lumbar post laminectomy syndrome, sacroiliitis, cervicalgia, cervical degenerative disc disease, degenerative cervical spinal stenosis, and insomnia secondary to chronic pain. Today I had an in-depth conversation with Ms. Ly and I share her disappointment with the lack of long-term relief following 2 right sacroiliac joint steroid injections. Based upon today's history, physical exam, and the results of the CT scan of her lumbar spine I believe that this pain may be secondary to a right L2 radicular pattern of painsecondary to the disc protrusion towards the right at L2-L3. Based upon this I offered her a right L2-L3 transforaminal epidural steroid injection. She denies any questions with regard to this plan, agrees and will schedule a right L2-L3 transforaminal epidural steroid injection at her earliest convenience. She declines any additional pain medications stating she does not like taking pills. Problem List Musculoskeletal and Injuries Lumbar post-laminectomy syndrome Sacroiliitis (HCC) - Primary Cervicalgia Chronic right-sided low back pain without sciatica Neuro DDD (degenerative disc disease), lumbar Degenerative lumbar spinal stenosis Insomnia secondary to chronic pain Degenerative cervical spinal stenosis Degenerative disc disease, cervical Plan No orders of the defined types were placed in this encounter. I offered her a right L2-L3 transforaminal epidural steroid injection.. Objective of opioid based therapy is to allow her to continue activities of daily living with less suffering. No follow-ups on file. Thank you for allowing me to participate in the care of this pleasant patient. David Caruso MD 11/22/2021 documented in this encounter Plan of Treatment [...] lumbar region Insomnia secondary to chronic pain Cervicalgia Degenerative disc disease, cervical Degenerative cervical spinal stenosis Spinal stenosis in cervical region documented in this encounter Care Teams Auto Tire Recapper Relationship Specialty Start Date End Date Lalito England MD [address] [place] [address] PCP - General 08/03/19 documented as of this encounter
--- OUTSIDE RECORDS SUMMARY | 2024-07-11 22:38 | XMS_ITS | Encounter Summary ---
Author Organization [facility] Address [address] [place] [address] Care Team Providers Care Software Computer Specialist Name Role Phone Lalito England MD Primary Care Provider [phone] Chante Leon [facility] Unavailable [phone] Encounter Details Date Type Department Care Team (Late st Contact Info) Description 01/11/2022 Telephone [facility] [address] [place] [address] Lalito England MD [address] [place] [address] Social History Tobacco Use Types [...] on file 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 Gender Identity Not on file Sexual Orientation Not on file documented as of this encounter Miscellaneous Notes * Telephone Encounter - Vielka Alexander MA - 01/11/2022 3:52 PM CDT error documented in this encounter Plan of Treatment Not on file documented as of this encounter Visit Diagnoses Not on filedocumented in this encounter Care Teams Software Computer Specialist Relationship Specialty Start Date End Date Lalito England MD [address] [place] [address] PCP - General 08/03/19 Chante Leon, [facility] [address] [place] [address] Pharmacist Pharmacy 01/04/22 01/21/22 documented as of this encounter
--- OUTSIDE RECORDS SUMMARY | 2024-07-11 22:38 | XMS_ITS | Encounter Summary ---
Author Organization [facility] Address [address] [address] Care Team Providers Care Assorter Laundry Name Role Phone Lalito England MD Primary Care Provider [phone] Reason for Visit * Reason Comments Unsuccessful - Declined Program Payor No volog to Insulin Aspart Conversion Opportunity - Unable to convert (no response from provider) Encounter Details Date Type Department Care Team (Late st Contact Info) Description 01/22/2022 [facility] Clinical Pharmacist [facility] Accountable Care Organization [address] [place] [id number] Chante Leon, [address] [address] Social History Tobacco Use Types Packs/Day Years [...] on file 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 Outcome: ?? Unable to convert prescription from brand name Novolog to generic insulin aspart (reason: no response from provider after 3 attempts). Follow-up: with this director underwriter sales as warranted. Closing clinical episode. [facility] Clinical Brazing Machine Setter remains available for future consult as desired. The visit was approximately 20 minutes in duration, all of which was via [employer] messaging and documentation. The patient was not contacted during this encounter. Chante Leon, Pharm.D., [facility] Clinical Brazing Machine Setter [facility] ([facility] & Accountable Care [facility] ([facility]) This note was created using voice recognition software. Grammatical and spelling errors may exist. If you have any questions or concerns please contact me. documented in this encounter Plan of Treatment Not on file documented as of this encounter Visit Diagnoses Not on filedocumented in this encounter Care Teams Assorter Laundry Relationship Specialty Start Date End [place] [address] PCP - General 08/03/19 documented as of this encounter
--- OUTSIDE RECORDS SUMMARY | 2024-07-11 22:38 | XMS_ITS | Encounter Summary ---
Author Organization [facility] Address [address] [address] Care Team Providers Care Payroll Master Name Role Phone Lalito England MD Primary Care Provider [phone] Encounter Details Date Type Department Care Team (Late st Contact Info) Description 11/27/2021 4:[address] 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
--- OUTSIDE RECORDS SUMMARY | 2024-07-11 22:38 | XMS_ITS | Encounter Summary ---
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
--- OUTSIDE RECORDS SUMMARY | 2024-07-11 22:38 | XMS_ITS | Encounter Summary ---
Author Organization [facility] Address [address] [place] [address] Care Team Providers Care Golf Range Attendant Name Role Phone Lalito England MD Primary Care Provider [phone] Reason for Visit * Reason Onset Date Comments Medical Question/Miscellaneous 02/27/2022 Encounter Details Date Type Department Care Team (Late st Contact Info) Description 02/27/2022 Telephone [facility] [address] [place] [address] Lalito England MD [address] [place] [address] Medical Question/Miscellaneous Social History Tobacco [...] file 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 England Please advise Thanks * Telephone Encounter - Austen Bose - 02/27/2022 2:22 PM CDT Call Back Caller???s Concern: Patient requesting to know per neurosurgeon is it okay to be off eliquis 7 daysprior to surgery - to have filter placed in chest- surgery unscheduled. Caller states letter of medical clearance has been requested. Please advise. Caller???s Call back #: [phone] Does message need to be routed? Yes-Action Needed documented in this encounter Plan of Treatment Not on file documented as of this encounter Visit Diagnoses Not on filedocumented in this encounter Care Teams Golf Range Attendant Relationship Specialty Start Date End [place] [address] PCP - General 08/03/19 documented as of this encounter
--- OUTSIDE RECORDS SUMMARY | 2024-07-11 22:38 | XMS_ITS | Encounter Summary ---
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 * Telephone Encounter - Lalito England MD - 11/30/2021 2:42 PM CDT May restart amlodipine if stopping irbesartan hctz. Thanks. * Telephone Encounter - Devi George MA - 11/30/2021 1:51 PM CDT Lizbet negrete/ [facility] office called and lvm stating that pt creatinine is [address] Paige is wanting pt to d/c irbesartan hydrochlorothiazide because he believes it has to do w/ pt creatinine. Pt reported that she was taken off amlodipine so they didn't know if you wanted to resume this since the irbesartan needs d/c. Please advise thanks documented in this encounter Plan of Treatment Not on file documented as of this encounter Visit Diagnoses Not on filedocumented in this encounter Care Teams Lamp Cleaner Relationship Specialty Start Date End Date Lalito England MD [address] [place] [address] PCP - General 08/03/19 documented as of this encounter
--- OUTSIDE RECORDS SUMMARY | 2024-07-11 22:38 | XMS_ITS | Encounter Summary ---
Author Organization [facility] Healthcare Address [address] [place] [address] Care Team Providers Care Spice Room Worker Name Role Phone Lalito England MD Primary Care Provider [phone] Reason for Visit * Reason Comments Follow-up Encounter Details Date Type Department Care Team (Latest Contact Info) Description 12/28/2021 2:07 PM CDT - 12/28/2021 11:59 PM CDT Hospital Encounter [facility] [address] [place] [address] [address] [place] [address] David Caruso MD [address] [place] [address] [address] [place] [address] Lumbar radiculopathy (Primary Dx); DDD (degenerative disc disease), lumbar; Degenerative lumbar spinal stenosis; Lumbar post-laminectomy syndrome; Chronic right-sided low back pain without sciatica; Sacroiliitis (HCC); Insomnia secondary to chronic pain Discharge Disposition: [...] 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 3 alendronate (FOSAMAX) 70 mg tabletIndications: Age-related osteoporosis without current pathological fracture TAKE 1 TABLET BY MOUTH ONE TIME PER WEEK 12 tablet 2 05/15/2021 2 aspirin 81 mg enteric coated tabletIndications: prevention of thrombosis Take 1 tablet (81 mg total) by mouth director of public relations before breakfast 4 aspirin-acetaminop hen-caffeine (EXCEDRIN MIGRAINE) [...] A DAY 90 tablet 1 12/19/2021 3 cyclobenzaprine (FLEXERIL) 10 mg tablet Take 1 [...] the day) 45 tablet 1 07/05/2021 3 HYDROcodone-acetam inophen (NORCO) 5-325 mg per tabletIndications: Pain Take 1 tablet by mouth 3 (three) times a day as needed for pain 90 tablet 12/28/2021 2 HYDROcodone-acetam inophen (NORCO) 5-325 mg per tabletIndications: Pain Take 1 tablet by mouth 3 (three) times a day as needed for pain 90 tablet 01/27/2022 2 irbesartan-hydroCH LOROthiazide (AVALIDE) 300-12.5 mg per tabletIndications: Hypertension associated with type 2 diabetes mellitus (HCC) TAKE 1 TABLET BY MOUTH EVERY DAY 90 tablet 1 09/12/2021 2 LANTUS 100 unit/mL (3 mL) pen for injectionIndicatio ns:Controlled type 2 diabetes mellitus with diabetic polyneuropathy, without long-term current use of insulin ([facility]) INJECT 48 UNITS UNDER THE SKIN DAILY 90 mL 1 05/07/2021 2 montelukast (SINGULAIR) 10 mg tablet TAKE 1 TABLET BY MOUTH EVERYDAY AT BEDTIME 90 tablet 1 08/13/2021 2 NovoLOG 100 unit/mL (3 mL) pen for injectionIndicatio ns:Controlled type 2 diabetes mellitus with diabetic polyneuropathy, without long-term current use of insulin ([facility]) INJECT 32 UNITS UNDER THE SKIN 3 (THREE) TIMES A DAY BEFORE MEALS 84 mL 2 09/11/[address] (PROTONIX) 40 mg EC tabletIndications: Gastroesophageal reflux disease TAKE 1 TABLET BY MOUTH TWICE A DAY 180 tablet 1 12/05/2021 3 pen needle, diabetic (BD Ultra-Fine Mini Pen Needle) 31 gauge x 3/16 needle 1 needle as directed 300 each 3 05/28/2021 3 simvastatin (ZOCOR) 40 mg tabletIndications: Controlled type 2 diabetes mellitus with diabetic polyneuropathy, without long-term current use of insulin ([facility]) TAKE 1 TABLET BY MOUTH EVERY DAY AT NIGHT 90 tablet 1 08/23/2021 2 traMADol (ULTRAM) 50 mg tablet take 1 tablet by ORAL route every 6 hours as needed 60 2 06/21/2013 2 documented as of this encounter Ordered Prescriptions Prescription Sig Dispense Quantity Refills Last Filled Start Date End Date naloxone (NARCAN) 4 mg/actuation spray,non-aerosol Administer 1 spray into affected nostril(s) as needed for opioid reversal 1 each 12/28/2021 HYDROcodone-acetam inophen (NORCO) 5-325 mg per tabletIndications: Pain Take 1 tablet by mouth 3 (three) times a day as needed for pain 90 tablet 01/27/2022 2 HYDROcodone-acetam inophen (NORCO) 5-325 mg per tabletIndications: Pain Take 1 tablet by mouth 3 (three) times a day as needed for pain 90 tablet 12/28/2021 2 documented in this encounter Discharge Disposition Disposition Code Departure Means Destination Discharge to home or self care documented in this encounter Progress Notes * David Caruso MD - 12/28/2021 2:15 PM CDT Patient Name: Criss Ly : 1950 Today's Date: 12/28/2021 PCP: Lalito England MD Referring: No ref. provider found Chief Complaint Patient presents with ??? Follow-up HPI Criss Ly is a 71 y.o. year old female seen in consultation today for No ref. provider found. Today she returns to the [facility] with a report of 0% long-term relief of her low back pain following a right L2-L3 transforaminal epidural steroid injection. Actually she states that none of the injections thigh provided her including the right sacroiliac joint steroid injection provided her any long-term relief. She continues with a Chief Complaint of bilateral low back and buttock pain, she denies any leg pain. However today her primary complaint is new bilateral general leg weakness. Her pain began in 2019. Initiating Events include none that she can recall. In the past in 2006, and in 2008 she had both cervical and lumbar surgery however she states that these procedures resolved her pain and she was actually pain-free until 2019. The pain is described as an intermittent sharp pain. Her pain rates Currently 10/10 on the numeric pain scale. At Worst 10/10 Provocative maneuvers include standing, walking, bending, and at the end the day., At Best 8/10 Alleviating maneuvers include rest, changing position, and distraction. With regard to additional symptoms the patient reports right hand weakness. She reports new bilateral leg Weakness, she denies a footdrop. She reports right finger and occasional right leg Numbness. She denies bowel or bladder incontinence. She reports chronic pain associated Insomnia. Therapeutic modalities attempted to date include a right L2-L3 transforaminal epidural steroid injection provided her no relief, a right sacroiliac joint steroid injection provided [...] she is allergic to hydrocodone. Pain Score: 10 - Worst possible pain Pain Location: Back (Lumbar) Pain Radiating Towards: trevin leg weakness(giving out Pain Descriptors: Sharp Pain Frequency: Constant/continuous Pain Onset: Ongoing Clinical Progression: Gradually worsening Effect of Pain on Daily Activities: limited adl's No Known Allergies Past Medical History: Diagnosis Date ??? Benign hypertension with CKD (chronic kidney disease) stage III (HCC) ??? Gastroesophageal reflux disease GERD ??? HX OTHER MEDICAL PMO ??? HX OTHER MEDICAL GASTROENTEROLOGY NURSE ??? HX OTHER MEDICAL [facility] OA ??? HX OTHER MEDICAL 2008 Discectomy, cervical ??? HX OTHER MEDICAL Fall ??? HX OTHER MEDICAL Left proximal femoral Gamma Nail fixation proximal; Comments: [facility] 07/25/2015 - ??? HX OTHER MEDICAL RTKR 2001.; Comments: [facility] 07/25/2015 - ??? HX OTHER MEDICAL LTKR 2006.; Comments: [facility] 07/25/2015 - ??? HX OTHER MEDICAL Back surgery 2007.; Comments: [facility] 07/25/2015 - ??? HX OTHER MEDICAL Cervical disc surg. 2008.; Comments: [facility] 07/25/2015 - ??? HX OTHER MEDICAL Breast reduction 2009.; Comments: [facility] 07/25/2015 - ??? HX OTHER MEDICAL [...] REDUCTION MAMMAPLASTY Bilateral 2009 ??? TONSILLECTOMY tonsillectomy Social History Socioeconomic History [...] tablet aspirin 81 mg enteric coated tablet miviefl-ddgbbdgwhiwmy-hqblmsiu (EXCEDRIN MIGRAINE) 250-250-65 mg per tablet blood [...] tablet HYDROcodone-acetaminophen (NORCO) 5-325 mg per tablet HYDROcodone-acetaminophen (NORCO) 5-325 mg per tablet irbesartan-hydroCHLOROthiazide (AVALIDE) 300-12.5 mg per tablet [...] patient is not nervous/anxious. Physical Exam Vitals: 12/28/21 1429 BP: 132/77 BP Location: Right arm Patient Position: Sitting Pulse: 111 Resp: 21 SpO2: 99% There is no height or weight on [...] memory normal. Judgment: Judgment normal. Gait is antalgic she uses a walker Toe Stand is bilaterally unable Heel Stand is bilaterally unable Neck: Inspection is clean, dry, and intact; no lesions are noted. Palpation produces no pain. Percussion produces no pain Cervical Flexion 30 degrees produces concordant neck pain Extension 30 [...] pain. Percussion produces no pain Lumbar Flexion 30 degrees produces concordant low back pain Extension 10 degrees produces concordant low back pain Right Lateral Flexion 10 degrees produces concordant low back pain Left Lateral Flexion 10 degrees produces concordant low back pain Lower Extremity: Motor bilaterally 5/5 equal and intact Sensory bilaterally equal and intact DTR's Patellar Right 0/4 Left 0/4 Achilles Right 0/4 Left 0/4 Straight leg Raise Right 70 degrees produces no pain DFF no change Left 70 degrees produces no pain DFF no change Gaenslen's Test Right positive produces concordant right low [...] is osteophytic ridging and thickened ligamentum flavum. Wpzc-pe-cljuqheh osseous spinal canal stenosis. Uncovertebral spurring and facet arthropathy with moderate bilateral osseous neural foraminal narrowing. ?? C6-C7: Surgical level. Osteophytic ridging and thickened ligamentum flavum. Bntf-pp-nzybhwyy osseous spinal canal stenosis. Uncovertebral spurring and [...] spine MRI dated 01/26/2018. FINDINGS: SEGMENTATION: 5 wea-cka-hnxjijl lumbar type vertebral bodies. ?? ALIGNMENT: There [...] stenosis. Lateral recess narrowing on both sides. Naie-pl-fnfjuvlu right and mild left neural foraminal narrowing. [...] by Emil Stacy D.O. ?? AP: AP MRI LUMBAR SPINE WO CONTRAST ?? HISTORY: [...] Jr., M.D. Review of Data: Checked the [place] COURT ORDERLY sheet and it was consistent with our meds. UDT results: A sample was not obtained The patient was given a prescription for intranasal Narcan for the management of opioid induced respiratory depression or excess sedation. I reviewed the [facility] Prescription Monitoring Program printout and it was [...] stenosis, and insomnia secondary to chronic pain. I had an in- depth conversation with Ms. Ly and her sister today, and based upon the fact that although she continues with low back pain she has is new onset of bilateral leg pain, I stated that I am extremely concern as to the origin of this. I reviewed with her the results a CT scan of her lumbar spine that demonstrated severe lumbar spinal stenosis at L2-L3. Since none of the injections that provided her past provide her long-term relief,I am hesitant to offer her any further interventional pain procedures. Additionally, the interventional pain procedures will not help with his lower extremity weakness. Based upon the fact that she states she was seen and evaluated in the past by Dr. Srinath Tovar in [place] it is my recommendation that she follow up with him with regard to her new onset of bilateral leg weakness. I instructed her that if she develops a footdrop she should immediately go to an emergency room for evaluation, asa footdrop could be permanent. I explained that based upon today's physical exam it appears that her motor is intact however since she reports this new onset of weakness I encouraged her to have it evaluated. Finally I discussed with her pain management, and since she states that the tramadol does not provide her adequate relief and she requests something stronger I discussed her allergy to hydrocodone. She states that she has actually no longer allergic to hydrocodone and that after her last surgery she was prescribed hydrocodone and this did not cause her a headache. Based upon the fact that she is not allergic to hydrocodone, and she states the hydrocodone provide her relief in the past I will trial [place] 5/325 q.8 hours p.r.n. pain. I encouraged her to start the physical therapy ordered by Dr. England. I will have her follow-up in 2 months time for repeat evaluation. However I also explained to her and emphasized that she should be seen evaluated by a surgeon for this increasing bilateral leg weakness. Problem List Musculoskeletal and Injuries Lumbar post-laminectomy syndrome Sacroiliitis (HCC) Chronic right-sided low back pain without sciatica Neuro DDD (degenerative disc disease), lumbar Degenerative lumbar spinal stenosis Insomnia secondary to chronic pain Lumbar radiculopathy - Primary Relevant Medications HYDROcodone-acetaminophen (NORCO) 5-325 mg per tablet HYDROcodone-acetaminophen (NORCO) 5-325 mg per tablet (Start on 01/27/2022) Plan No orders of the defined types were placed in this encounter. I I encouraged her to follow-up with Dr. Srinath tovar to evaluate her increasing leg weakness, I willtrial [place] 5/325 q.8 hours p.r.n. pain, encouraged her to participate physical therapy, and I willhave her follow-up in 2 months time for repeat evaluation... Objective of opioid based therapy is to allow her to continue activities of daily living with less suffering. No follow-ups on file. Thank you for allowing me to participate in the care of this pleasant patient. David Caruso MD 12/28/2021 documented in this encounter Plan of Treatment Not on file documented as of this encounter Visit Diagnoses Diagnosis Lumbar radiculopathy- Primary Thoracic or lumbosacral neuritis or radiculitis, unspecified DDD (degenerative disc disease), lumbar Degeneration of lumbar or lumbosacral intervertebral disc Degenerative lumbar spinal stenosis Spinal stenosis of lumbar region Lumbar post-laminectomy syndrome Postlaminectomy syndrome, lumbar region Chronic right-sided low back pain without sciatica Sacroiliitis (HCC) Sacroiliitis, not elsewhere classified Insomnia secondary to chronic pain documented in this encounter Care Teams Spice Room Worker Relationship Specialty Start Date End Date Lalito England MD [address] [place] [address] PCP - General 08/03/19 documented as of this encounter
--- OUTSIDE RECORDS SUMMARY | 2024-07-11 22:38 | XMS_ITS | Encounter Summary ---
Author Organization [facility] Healthcare Address [address] [place] [address] Care Team Providers Care Academic Computing Director Name Role Phone Lalito England MD Primary Care Provider [phone] Reason for Visit * Diagnostic Imaging (Routine) - Closed Specialty Diagnoses / Procedures Referred By Contac t Referred To Contact Diagnoses Pain Procedures FL Fluoroscopy < 1 Hour David Caruso MD Phone: tel: fax: [address] [address] Referral ID Status Reason Start Date Expiration Date Visits Re quested Visits Authorized [id number] Closed 10/16/2021 11/15/2022 1 1 Encounter Details Date Type Department Care Team (Late st Contact Info) Description 10/16/2021 9:45 AM CDT Ancillary Procedure [address] [address] Pain Social History Tobacco Use Types Packs/Day Years [...] on file 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 ??Please refer to the physician's procedure / OR operative note. us David Caruso MD IMG FLUOROSCOPY PROCEDURES F inal Result [facility] documented in this encounter Visit Diagnoses Diagnosis Pain Generalized pain documented in this encounter Care Teams Academic Computing Director Relationship Specialty Start Date End Date Lalito England MD [address] [place] [address] PCP - General 08/03/19 documented as of this encounter
--- OUTSIDE RECORDS SUMMARY | 2024-07-11 22:38 | XMS_ITS | Encounter Summary ---
Author Organization [facility] Healthcare Address [address] [place] [address] Care Team Providers Care Railway Switchman Name Role Phone Lalito England MD Primary Care Provider [phone] Encounter Details Date Type Department Care Team (Latest Contact Info) Description 11/01/2021 8:30 AM CDT - 11/01/2021 11:59 PM CDT Hospital Encounter [facility] [address] [place] [address] A, [facility]. 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 Gender Identity Not on file Sexual Orientation Not on file documented as of this encounter Last Filed Vital Signs Vital Sign Reading Time Taken Comments Blood Pressure 105/78 11/01/2021 9:10 AM CDT Pulse 68 11/01/2021 9:10 AM CDT Temperature 36.4 ??C (97.5 ??F) 11/01/2021 8:48 AM CD T Respiratory Rate 16 11/01/2021 9:10 AM CDT Oxygen Saturation 97% 11/01/2021 9:10 AM CDT Inhaled Oxygen Concentration - - Weight - - Height - - Body Mass Index - - documented in this encounter Discharge Instructions * Discharge Instructions* Kath Bradley RN - 11/01/2021 9:13 AM CDT Discharge instructions reviewed. Signed copy given to patient. Patient verbalized understanding. Patient to return as instructed. documented in this encounter Medications at Time [...] 1 tablet (81 mg total) by mouth dietitian before breakfast 4 aspirin-acetaminop hen-caffeine (EXCEDRIN MIGRAINE) [...] Progress Notes * David Caruso MD - 11/01/2021 8:45 AM CDT Patient Name: Criss Ly : 1950 Today's Date: 11/01/2021 PCP: Lalito England MD Referring: No ref. provider found Patient Active Problem List Diagnosis ??? Hyperlipidemia ??? Type 2 diabetes mellitus with stage 3 chronic kidney disease, with long-term current use of insulin (HCC) ??? Disorder of peripheral nervous system (CMS/HCC) ??? Class 2 severe obesity due to excess calories with serious comorbidity and body mass index (BMI) of 37.0 to 37.9 in adult ([facility]) ??? Hypertension ??? Fever ??? Arthralgia of hip ??? Adenomatous polyp of colon ??? Sarcoidosis of lung (CMS/HCC) ([facility]) ??? Idiopathic osteoporosis with pathological fracture ??? Healthcare maintenance ??? Medication management ??? Hx of colonic polyps ??? Family hx of colon cancer ??? Persistent vomiting ??? DDD (degenerative disc disease), lumbar ??? Degenerative lumbar spinal stenosis ??? Lumbar post-laminectomy syndrome ??? Morbid (severe) obesity due to excess calories ([facility]) ??? CKD (chronic kidney disease) stage 4, GFR 15-29 ml/min (CMS/HCC) ([facility]) ??? Sacroiliitis ([facility]) ??? Cervicalgia ??? Chronic right-sided low back pain without sciatica ??? Insomnia secondary to chronic pain ??? Degenerative cervical spinal stenosis ??? Degenerative disc disease, cervical Allergies Allergen Reactions ??? Hydrocodone Other (See comments) Reaction: migraines, , , can take tylenol Past Medical History: Diagnosis Date ??? Benign hypertension with CKD (chronic kidney disease) stage III ([facility]) ??? Gastroesophageal reflux disease GERD ??? HX OTHER MEDICAL PMO ??? 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 HX OTHER MEDICAL [facility] OA ??? [...] hip arthroplasty left hip; Comments: [facility] TCU unit 02/06 - 02/17/16 [...] tablet aspirin 81 mg enteric coated tablet ukekpzt-ilsrxsijpjydf-ckmvndah (EXCEDRIN MIGRAINE) 250-250-65 mg per tablet blood [...] syndrome, and insomnia secondary to chronic pain. Today she returns to the [facility] with a report of 70% relief of her pain following the initial diagnostic hopefully therapeutic right sacroiliac joint steroid injection. However since then her pain has gradually returned. Planned Procedure: Right sided diagnostic and hopefully therapeutic Sacroiliac Joint Steroid Injection.#2 Problem List Musculoskeletal and Injuries Lumbar post-laminectomy syndrome Sacroiliitis (HCC) - Primary Chronic right-sided low back pain without sciatica Neuro DDD (degenerative disc disease), lumbar Degenerative lumbar spinal stenosis Insomnia secondary to chronic pain David Caruso MD 11/01/2021 documented in this encounter Miscellaneous Notes * Op Note - David Caruso MD - 11/01/2021 8:45 AM CDT Procedure: Right Sacroiliac Joint Steroid Injection under Fluoroscopic Guidance #2 Pre-procedure Diagnosis: Sacroiliitis, lumbago, lumbar degenerative disc [...] secondary to chronic pain David Caruso MD 11/01/2021 documented in this encounter Plan of Treatment [...] iodine/mL injection solution As needed, Starting on Yael 11/01/21 at 0901, Intra-Op Given 11/01/2021 9:01 AM CDT 2 mL Back lidocaine PF (XYLOCAINE) 10 mg/mL (1 %) preservative free injection As needed, Starting on Yael 11/01/21 at 0901, Intra-Op Given 11/01/2021 9:01 AM CDT 3 mL Back triamcinolone (KENALOG) 40 mg/mL injection As needed, Starting on Yael 11/01/21 at 0902, Intra-Op Given 11/01/2021 9:02 AM CDT 80 mg documented in this encounter Care Teams Railway Switchman Relationship Specialty Start Date End Date Lalito England MD [address] [place] [address] PCP - General 08/03/19 documented as of this encounter
--- OUTSIDE RECORDS SUMMARY | 2024-07-11 22:38 | XMS_ITS | Encounter Summary ---
Author Organization [facility] Healthcare Address [address] [place] [address] Care Team Providers Care Commercial Producer Name Role Phone Lalito England MD Primary Care Provider [phone] Reason for Visit * Reason Comments Follow-up Encounter Details Date Type Department Care Team (Latest Contact Info) Description 10/02/2021 1:54 PM CDT - 10/02/2021 11:59 PM CDT Hospital Encounter [facility] [address] [place] [address] [address] [place] [address] David Caruso MD [address] [place] [address] [address] [place] [address] Cervicalgia (Primary Dx); Chronic right-sided low back pain without sciatica; Degenerative disc disease, cervical; Degenerative cervical spinal stenosis; DDD (degenerative disc disease), lumbar; Degenerative lumbar spinal stenosis; Insomnia secondary to chronic pain; Lumbar post-laminectomy syndrome; Sacroiliac joint dysfunction Discharge Disposition: Discharge to home or self [...] on file 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) INJECT 48 UNITS UNDER THE SKIN DAILY [...] Refills Last Filled Start Date End Date cyclobenzaprine (FLEXERIL) 10 mg tablet Take 1 tablet (10 mg total) by mouth nightly as needed for muscle spasms 30 tablet 2 10/02/2021 2 documented in this encounter Discharge Disposition Disposition Code Departure Means Destination Discharge to home or self care documented in this encounter Progress Notes * David Caruso MD - 10/02/2021 2:15 PM CDT Patient Name: Criss Ly : 1950 Today's Date: 10/02/2021 PCP: Lalito England MD Referring: No ref. provider found Chief Complaint Patient presents with ??? Follow-up HPI Criss Ly is a 71 y.o. year old female seen in consultation today for No ref. provider found. Today she returns to the [facility] with a report of 70% relief of her cervical pain with the use of Flexeril. She states that she stopped the Cymbalta due to the fact that it was makingher feel lightheaded and unsteady. Since stopping the Cymbalta she denies any changes in her pain. She continues with a Chief Complaint of bilateral neck and shoulder pain, however this pain is much improved. She denies any arm pain. Additionally she complains of right low back and buttock pain, she denies any leg pain. Her pain began in 2019. Initiating Events include none that she can recall. However, her pain is worsening since her dose of gabapentin was reduced by Dr. Paige her non garment sewing machine operator due to worsening renal insufficiency. In the past in 2006, and in 2008 she had both cervical and lumbar surgery however she states that these procedures resolved her pain and she was actually pain-free until 2019. The pain is described as constant sharp pain. It rates Currently 9/10 on the numeric pain scale. At Worst [...] Insomnia. Therapeutic modalities attempted to date include Cymbalta provides her no relief, Flexeril providesher relief primarily of her cervical pain, gabapentin provides her some relief, tramadol provides her some relief, tizanidine provides her no relief, lumbar spine steroid injections provide her no relief, radiofrequency ablation of her lumbar spine provided her no relief, heat provides her relief, and she is allergic to hydrocodone. Pain Score: 9 Pain Location: Back (Lumbar) Pain Radiating Towards: tailbone pain Pain Descriptors: Sharp Pain Frequency: Constant/continuous Pain Onset: Ongoing Clinical Progression: Not changed Effect of Pain on Daily Activities: patient is able to complete adl's Allergies Allergen Reactions ??? Hydrocodone Other (See comments) Reaction: migraines, , , can take tylenol Past Medical History: Diagnosis Date ??? Benign hypertension with CKD (chronic kidney disease) stage III (HCC) ??? Gastroesophageal reflux disease GERD ??? HX OTHER MEDICAL PMO ??? 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 HX OTHER MEDICAL [facility] OA ??? HX OTHER MEDICAL 2008 Discectomy, cervical ??? HX OTHER MEDICAL Fall ??? HX OTHER MEDICAL Left proximal femoral Gamma Nail fixation proximal; Comments: J 07/25/2015 - ??? HX OTHER MEDICAL RTKR 2002.; Comments: [facility] 07/25/2015 - ??? HX OTHER [...] of previous hip arthroplasty left hip; Comments: [facility] TCU unit 02/06 - 02/17/16 for [...] tablet aspirin 81 mg enteric coated tablet mvqgxxd-lkppgwlqdwtbw-anhjpvkh (EXCEDRIN MIGRAINE) 250-250-65 mg per tablet blood [...] mg tablet traMADol (ULTRAM) 50 mg tablet cyclobenzaprine (FLEXERIL) 10 mg tablet Review of Systems Review of [...] patient is not nervous/anxious. Physical Exam Vitals: 10/02/21 1413 BP: 124/70 Pulse: 89 Resp: 18 SpO2: 98% There is no height or [...] 0/4 Left 0/4 Low Back: Inspection is clean dry and intact, no lesions are noted. A well-healed postsurgical midline scar is noted. Palpation produces right-sided paraspinous lumbar pain. The left side produces no pain. Percussion produces no pain Lumbar Flexion 60 degrees produces no pain Extension 20 degrees produces concordant right low back pain Right Lateral Flexion 20 degrees produces concordant right low back pain Left Lateral Flexion 20 degrees produces concordant right low back pain Lower Extremity: Motor bilaterally [...] is osteophytic ridging and thickened ligamentum flavum. Xgxe-mh-gcmicvhq osseous spinal canal stenosis. Uncovertebral spurring and facet arthropathy with moderate bilateral osseous neural foraminal narrowing. ?? C6-C7: Surgical level. Osteophytic ridging and thickened ligamentum flavum. Lqfj-vg-dkvzkyet osseous spinal canal stenosis. Uncovertebral spurring and [...] spine MRI dated 01/26/2018. FINDINGS: SEGMENTATION: 5 yaa-htj-lonfafs lumbar type vertebral bodies. ?? ALIGNMENT: There [...] stenosis. Lateral recess narrowing on both sides. Wqfs-qh-khpxgcdw right and mild left neural foraminal narrowing. [...] Jr., M.D. Review of Data: Checked the [employer] sheet and it was consistent with our meds. UDT results: A sample was not obtained The patient was not given a prescription for intranasal Narcan for the management of opioid inducedrespiratory depression or excess sedation. I reviewed the [place] Prescription Monitoring Program printout and it was consistent and appropriate. The patient denies the use of Tobacco The patient has a diagnosis of hypertension that is managed by her primary care physician. Assessment: Based on the history, physical exam, MRI of her lumbar spine, and CT scan of her cervical and lumbar spine my impression is the patient has a primary diagnosis of cervicalgia, cervical degenerative disc disease, degenerative cervical spinal stenosis, lumbago, lumbar degenerative disc disease, degenerative lumbar spinal stenosis, lumbar post laminectomy syndrome, sacroiliitis, and insomnia secondary to chronic pain. Based upon today's presentation, and the fact she reports 70% reduction in her pain in her cervical spine and on the physical exam to appears that her right sacroiliac joint is her primary pain generator I offered her diagnostic and hopefully therapeutic right sacroiliac joint steroid injection. In the interim since the Flexeril appears to be helping her cervical pain I encouraged her to continue taking this. Finally I discussed the option of a spinal cord stimulator for her low back pain or an intrathecal opioid trial for both her cervical and lumbar pain. During our conversation she feels that her neck pain has largely resolved with the Flexeril and she wishes to concentrate on this low back pain. I agreed and again offered her a right sacroiliac joint steroid injection. Problem List Musculoskeletal and Injuries Lumbar post-laminectomy syndrome Sacroiliac joint dysfunction Cervicalgia - Primary Chronic right-sided low back pain without sciatica Neuro DDD (degenerative disc disease), lumbar Degenerative lumbar spinal stenosis Insomnia secondary to chronic pain Degenerative cervical spinal stenosis Degenerative disc disease, cervical Plan No orders of the defined types were placed in this encounter. I will continue the Flexeril, gabapentin and tramadol, and I offered her a diagnostic and hopefullytherapeutic right sacroiliac joint steroid injection. Objective of opioid based therapy is to allow her to continue activities of daily living with less suffering. No follow-ups on file. Thank you for allowing me to participate in the care of this pleasant patient. David Caruso MD 10/02/2021 documented in this encounter Plan of Treatment Not on file documented as of this encounter Visit Diagnoses Diagnosis Cervicalgia- Primary Chronic right-sided low back pain without sciatica Degenerative disc disease, cervical Degenerative cervical spinal stenosis Spinal stenosis in cervical region DDD (degenerative disc disease), lumbar Degeneration of lumbar or lumbosacral intervertebral disc Degenerative lumbar spinal stenosis Spinal stenosis of lumbar region Insomnia secondary to chronic pain Lumbar post-laminectomy syndrome Postlaminectomy syndrome, lumbar region Sacroiliac joint dysfunction Nonallopathic lesion of sacral region, not elsewhere classified documented in this encounter Discontinued Medications Medication Sig Discontinue Reason Start Date End Da te cyclobenzaprine (FLEXERIL) 10 mg tablet Take 1 tablet (10 mg total) by mouth nightly as needed for muscle spasms Reorder 09/07/2021 10/02/2021 documented as of this encounter Care Teams Commercial Producer Relationship Specialty Start Date End Date [place] [address] PCP - General 08/03/19 documented as of this encounter
--- OUTSIDE RECORDS SUMMARY | 2024-07-11 22:38 | XMS_ITS | Encounter Summary ---
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 Gender Identity Not on file Sexual [...] ONE TIME PER WEEK 12 tablet 2 1 01/19/20 22 aspirin 81 mg enteric coated tabletIndications :prevention of thrombosis Take 1 tablet (81 mg total) by mouth early childhood lead teacher before breakfast 11/28/19 24 blood glucose diagnostic [...] for pain 90 tablet 2 03/04/20 22 HYDROcodone-aceta minophen (NORCO) 5-325 mg per tabletIndications :Pain Take 1 tablet by mouth 3 (three) times a day as needed for pain 90 tablet 2 01/19/20 22 LANTUS 100 unit/mL (3 mL) pen for injectionIndicati ons:Controlled type 2 diabetes mellitus with diabetic polyneuropathy, without long-term current use of insulin ([facility]) INJECT 48 UNITS SUBCUTANEOUSLY DAILY 30 mL 5 2 05/26/20 23 montelukast (SINGULAIR) 10 mg tablet TAKE 1 TABLET BY MOUTH EVERYDAY AT BEDTIME 90 tablet 1 2 02/06/20 22 NovoLOG 100 unit/mL (3 mL) pen for injectionIndicati ons:Controlled type 2 diabetes mellitus with diabetic polyneuropathy, without long-term current use of insulin ([facility]) INJECT 32 UNITS UNDER THE [...] polyneuropathy, without long-term current use of insulin ([facility]) TAKE 1 TABLET BY MOUTH EVERY DAY AT NIGHT 90 tablet 1 2 02/20/20 22 documented as of this encounter Discharge Disposition Disposition Code Departure Means Destination Discharge to home or self care documented in this encounter Plan of Treatment Not on file documented as of this encounter Visit Diagnoses Not on filedocumented in this encounter Care Teams Hydroponics Worker Relationship Specialty Start Date End Date Lalito England MD [address] [place] [address] PCP - General 08/03/19 Chante Leon, [address] HARDY [address] [place] [id number] Pharmacist Pharmacy 01/04/22 01/21/22 documented as of this encounter
--- OUTSIDE RECORDS SUMMARY | 2024-07-11 22:38 | XMS_ITS | Encounter Summary ---
Author Organization [facility] Healthcare Address [address] [place] [address] Care Team Providers Care Remote Sensing Surveyor Name Role Phone Lalito England MD Primary Care Provider [phone] Reason for Visit * Reason Comments Follow-up Encounter Details Date Type Department Care Team (Latest Contact Info) Description 03/04/2022 1:36 PM CDT - 03/04/2022 11:59 PM CDT Hospital Encounter [facility] [address] [place] [address] [address] [place] [address] David Caruso MD [address] [place] [address] [address] [place] [address] Lumbar radiculopathy (Primary Dx); DDD (degenerative disc disease), lumbar; Degenerative lumbar spinal stenosis; Degenerative disc disease, cervical; Degenerative cervical spinal stenosis; Chronic bilateral low back pain without sciatica; Lumbar post-laminectomy syndrome; Insomnia secondary to chronic pain; Sacroiliitis (HCC); Cervicalgia Discharge Disposition: Discharge to home or self [...] on file 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 Gender Identity Not on file Sexual Orientation Not on file documented as of this encounter Last Filed Vital Signs Vital Sign Reading Time Taken Comments Blood Pressure 116/74 03/04/2022 2:08 PM CDT Pulse 96 03/04/2022 2:08 PM CDT Temperature - - Respiratory Rate 16 03/04/2022 2:08 PM CDT Oxygen Saturation 100% 03/04/2022 2:08 PM CDT Inhaled Oxygen Concentration - - [...] needed for opioid reversal 1 each 2 HYDROcodone-aceta minophen (NORCO) 5-325 mg per tabletIndications :Pain Take 1 tablet by mouth every 6 (six) hours as needed for pain 120 tablet 2 05/03/20 22 HYDROcodone-aceta minophen (NORCO) 5-325 mg per tabletIndications :Pain Take 1 tablet by mouth every 6 (six) hours as needed for pain 120 tablet 2 04/03/20 22 albuterol HFA (PROVENTIL HFA,VENTOLIN HFA) 90 mcg/actuation [...] 1 tablet (81 mg total) by mouth field examiner before breakfast 11/28/19 24 blood glucose diagnostic [...] spasms 30 tablet 2 2 03/28/20 23 fluticasone propionate (FLONASE) 50 mcg/actuation nasal [...] polyneuropathy, without long-term current use of insulin ([facility]) INJECT 48 UNITS SUBCUTANEOUSLY DAILY 30 mL [...] 06/12/20 23 documented as of this encounter Ordered Prescriptions Prescription Sig Dispense Quantity Refills Last Filled Start Date End Date HYDROcodone-acetam inophen (NORCO) 5-325 mg per tabletIndications: Pain Take 1 tablet by mouth every 6 (six) hours as needed for pain 120 tablet 03/04/2022 04/03/2022 HYDROcodone-acetam inophen (NORCO) 5-325 mg per tabletIndications: Pain Take 1 tablet by mouth every 6 (six) hours as needed for pain 120 tablet 04/03/2022 05/03/2022 documented in this encounter Discharge Disposition Disposition Code Departure Means Destination Discharge to home or self care documented in this encounter Progress Notes * David Caruso MD - 03/04/2022 2:00 PM CDT Patient Name: Criss Ly : 1950 Today's Date: 03/04/2022 PCP: Lalito England MD Referring: No ref. provider found Chief Complaint Patient presents with ??? Follow-up HPI Criss Ly is a 71 y.o. year old female seen in consultation today for No ref. provider found. Today she returns to the [facility] with a report of 0% long-term relief of her low back pain following interventional pain procedures. She states that none of the injections provided her any long-term relief. She continues with a Chief Complaint of bilateral low back and buttock pain,she denies any leg pain. Her primary complaint continues to be bilateral general leg weakness. She states that she is unable to stand or walk due to weakness. She states that her progress has been affected by the fact that she recently suffered from COVID that increased her leg weakness. She also continues to complain of central neck pain with radiation to bilateral shoulders. The pain is described as an intermittent sharp pain. Her pain rates Currently 9/10 on the numeric pain scale. At Worst 10/10 Provocative maneuvers include standing, walking, activity, and bending., At Best 7/10 Alleviating maneuvers include rest, changing position, and after taking Arcade. With regard to additional symptoms the patient reports general bilateral leg weakness. She reports right finger and occasional right [...] Pain Location: Back (Lumbar) Pain Radiating Towards: denies-but has trevin leg weakness Pain Descriptors: Aching Pain Frequency: Constant/continuous Pain Onset: Ongoing Clinical Progression: Gradually worsening Effect of Pain on Daily Activities: patient needs assistance with adl's No Known Allergies Past Medical History: Diagnosis Date ??? Benign hypertension with CKD (chronic kidney disease) stage III (HCC) ??? Gastroesophageal reflux disease GERD ??? HX OTHER MEDICAL PMO ??? 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 HX OTHER MEDICAL [facility] OA ??? [...] of previous hip arthroplasty left hip; Comments[facility]16 for [...] 3/16 needle simvastatin (ZOCOR) 40 mg tablet Review of Systems Review of [...] patient is not nervous/anxious. Physical Exam Vitals: 03/04/22 1408 BP: 116/74 Pulse: 96 Resp: 16 SpO2: 100% There is no height or weight on [...] Judgment: Judgment normal. Gait is antalgic she is in a wheelchair Toe Stand is bilaterally unable Heel Stand [...] is osteophytic ridging and thickened ligamentum flavum. Hffp-yy-vpspclph osseous spinal canal stenosis. Uncovertebral spurring and facet arthropathy with moderate bilateral osseous neural foraminal narrowing. ?? C6-C7: Surgical level. Osteophytic ridging and thickened ligamentum flavum. Ohvc-lr-ktuczyrq osseous spinal canal stenosis. Uncovertebral spurring and [...] spine MRI dated 01/26/2018. FINDINGS: SEGMENTATION: 5 lfw-dea-hbfthvi lumbar type vertebral bodies. ?? ALIGNMENT: There [...] stenosis. Lateral recess narrowing on both sides. Dulc-mi-xukparts right and mild left neural foraminal narrowing. [...] Jr., M.D. Review of Data: Checked the [employer] MANA[employer] PAPER sheet and it was consistent with our [...] degenerative disc disease, degenerative cervical spinal stenosis, long-term use opiate analgesics, long-term use of anticoagulants and insomnia secondary to chronic pain. I had an in-depth conversation with Ms. Ly and based upon the fact that she hassurgery scheduled with Dr. Block, and she has never responded to interventional pain procedures I offered to refill her Arcade 5/325. Since she states that it does not last the full 8 hours I will increase the frequency to every 6 hours. I will provide her a 2 month supply and have her follow-up after her surgery to review her response and provide whatever assistance I can offer. She denies any questions regard above-mentioned plan, and will follow-up on an as-needed basis. Problem List Musculoskeletal and Injuries Lumbar post-laminectomy syndrome Sacroiliitis (HCC) Cervicalgia Chronic back pain Neuro DDD (degenerative disc disease), lumbar Degenerative lumbar spinal stenosis Insomnia secondary to chronic pain Degenerative cervical spinal stenosis Degenerative disc disease, cervical Lumbar radiculopathy - Primary Plan No orders of the defined types were placed in this encounter. I will increase her Arcade 5/325 to q.6 hours p.r.n. pain, I encouraged her to follow-up with Dr. Block, and I will have her follow-up in 2 months time for a repeat evaluation. Objective of opioid based therapy is to allow her to continue activities of daily living with less suffering. No follow-ups on file. Thank you for allowing me to participate in the care of this pleasant patient. David Caruso MD 03/04/2022 documented in this encounter Plan of Treatment Not on file documented as of this encounter Visit Diagnoses Diagnosis Lumbar radiculopathy- Primary Thoracic or lumbosacral neuritis or radiculitis, unspecified DDD (degenerative disc disease), lumbar Degeneration of lumbar or lumbosacral intervertebral disc Degenerative lumbar spinal stenosis Spinal stenosis of lumbar region Degenerative disc disease, cervical Degenerative cervical spinal stenosis Spinal stenosis in cervical region Chronic bilateral low back pain without sciatica Lumbar post-laminectomy syndrome Postlaminectomy syndrome, lumbar region Insomnia secondary to chronic pain Sacroiliitis (HCC) Sacroiliitis, not elsewhere classified Cervicalgia documented in this encounter Discontinued Medications Medication Sig Discontinue Reason Start Date End Da te HYDROcodone-acetaminophe n (NORCO) 5-325 mg per tabletIndications:Pain Take 1 tablet by mouth 3 (three) times a day as needed for pain Reorder 12/28/2021 03/04/2022 documented as of this encounter Historical Medications * This list may reflect changes made after this encounter. apixaban (ELIQUIS) 2.5 mg tablet Take 1 tablet (2.5 mg total) by mouth 2 (two) times a day 05/26/2023 added in this encounter Care Teams Remote Sensing Surveyor Relationship Specialty Start Date End Date [place] [address] PCP - General 08/03/19 documented as of this encounter
--- OUTSIDE RECORDS SUMMARY | 2024-07-11 22:38 | XMS_ITS | Encounter Summary ---
Author Organization [facility] Address [address] [place] [address] Care Team Providers Care Food Counselor Name Role Phone Lalito England MD Primary Care Provider [phone] [phone] Encounter Details Date Type Department Care Team (Latest Contact Info) Description 12/07/2021 8:38 AM CDT - 12/07/2021 11:59 PM CDT Hospital Encounter [facility] [address] [place] [address] A, [facility] [address] [place] [address] David Caruso MD [address] [place] [place] [address] [address] [place] [address] Lumbar radiculopathy (Primary Dx); DDD (degenerative disc disease), lumbar; Degenerative lumbar spinal stenosis; Lumbar post-laminectomy syndrome; Sacroiliitis (HCC); Insomnia secondary to chronic pain; Chronic right-sided low back pain without sciatica Discharge Disposition: Discharge to home or self [...] on file 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 Gender Identity Not on file Sexual Orientation Not on file documented as of this encounter Last Filed Vital Signs Vital Sign Reading Time Taken Comments Blood Pressure 128/72 12/07/2021 9:02 AM CDT Pulse 112 12/07/2021 9:02 AM CDT Temperature 36.2 ??C (97.1 ??F) 12/07/2021 8:44 AM CD T Respiratory Rate 18 12/07/2021 9:02 AM CDT Oxygen Saturation 94% 12/07/2021 9:02 AM CDT Inhaled Oxygen Concentration - - Weight - - Height - - Body Mass Index - - documented in this encounter Discharge Instructions * Discharge Instructions* Susie Ramos RN - 12/07/2021 8:50 AM CDT Discharge instructions reviewed. Signed copy given to patient. Patient verbalized understanding. Patient to return in one month for post injection follow-up. documented in this encounter Medications at Time [...] 1 tablet (81 mg total) by mouth building services technician before breakfast 4 aspirin-acetaminop hen-caffeine (EXCEDRIN MIGRAINE) [...] polyneuropathy, without long-term current use of insulin ([facility]) INJECT 48 UNITS UNDER THE SKIN DAILY [...] Progress Notes * David Caruso MD - 12/07/2021 9:00 AM CDT Patient Name: Criss Ly : 1950 Today's Date: 12/06/2021 PCP: Lalito England MD Referring: No ref. [...] (BMI) of 37.0 to 37.9 in adult (HCC) ??? Hypertension ??? Fever ??? Arthralgia of hip ??? Adenomatous polyp of colon ??? Sarcoidosis of lung (CMS/HCC) ([facility]) ??? Idiopathic osteoporosis with pathological fracture ??? Healthcare maintenance ??? Medication management ??? Hx of colonic polyps ??? Family hx of colon cancer ??? Persistent vomiting ??? DDD (degenerative disc disease), lumbar ??? Degenerative lumbar spinal stenosis ??? Lumbar post-laminectomy syndrome ??? Morbid (severe) obesity due to excess calories ([facility]) ??? CKD (chronic kidney disease) stage 4, GFR 15-29 ml/min (CMS/HCC) ([facility]) ??? Sacroiliitis (HCC) ??? Cervicalgia ??? Chronic right-sided low back pain without sciatica ??? Insomnia secondary to chronic pain ??? Degenerative cervical spinal stenosis ??? Degenerative disc disease, cervical ??? Lumbar radiculopathy Allergies Allergen Reactions ??? Hydrocodone Other (See comments) Reaction: migraines, , , can take tylenol Past Medical History: Diagnosis Date ??? Benign hypertension with CKD (chronic kidney disease) stage III ([facility]) ??? Gastroesophageal reflux disease GERD ??? HX OTHER MEDICAL PMO ??? 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 HX OTHER MEDICAL [facility] OA ??? HX OTHER MEDICAL 2008 Discectomy, cervical ??? HX OTHER MEDICAL Fall ??? HX OTHER MEDICAL Left proximal femoral Gamma Nail fixation proximal; Comments: [facility] 07/25/2015 - ??? HX OTHER MEDICAL RTKR [...] of previous hip arthroplasty left hip; Comments: [facility] TCU unit 02/06 - [...] tablet aspirin 81 mg enteric coated tablet ecnvhpe-ltxqojhlmaxor-fxyxwcev (EXCEDRIN MIGRAINE) 250-250-65 mg per tablet blood [...] CARDIO- WNL ABD- WNL EXTR- WNL Impression: lumbar radiculopathy, lumbago, lumbar degenerative disc disease, degenerative lumbar spinal stenosis, lumbar post laminectomy syndrome, sacroiliitis, and insomnia secondary to chronic pain. Planned Procedure: A right L2-L3 transforaminal epidural steroid injection.#1 Problem List Musculoskeletal and Injuries Lumbar post-laminectomy syndrome Sacroiliitis (HCC) Chronic right-sided low back pain without sciatica Neuro DDD (degenerative disc disease), lumbar Degenerative lumbar spinal stenosis Insomnia secondary to chronic pain Lumbar radiculopathy - Primary David Caruso MD 12/06/2021 documented in this encounter Miscellaneous Notes * Op Note - David Caruso MD - 12/07/2021 9:00 AM CDT Procedure: Right L2-L3 transforaminal epidural Steroid Injection #1 Pre-Procedure Diagnosis: lumbar radiculopathy, lumbago, lumbar degenerative disc disease, degenerative lumbar spinal stenosis, lumbar post laminectomy syndrome, sacroiliitis, and insomnia secondary to chronic pain. Post-Procedure Diagnosis: Same Surgeon: David Caruso MD Complications: None Description of Procedure: The risks, benefits, and complications related to the procedure were discussed, and written informed consent was obtained. The most recent H&P was reviewed and there were no changes noted. The patient was then allowed to place themself in the prone position on the operating room table. The backwas prepped with Betadine x3 and draped in the usual sterile fashion. Fluoroscopy was utilized to identify and number the lumbar vertebrae. The C-arm was then obliqued to the right and an oblique view of the right L2-L3 neural foramen was observed. The skin overlying the right L2-L3 neural foramen was anesthetized with 3 ml 1% lidocaine with a 30 gauge needle. Next, under AP, oblique, and lateralviews a #22 gauge Bent tip spinal needle was advanced under fluoroscopic guidance until the tip liein the right L2-L3 neural foramen. After negative aspiration, 2.0 ml Omnipaque 240 contrast was injected, revealing an appropriate nerve root and epidural spread. Again after negative aspiration, 80 mg Kenalog in 1.0 ml PSF 1% Lidocaine was injected easily. The patient tolerated the procedure well,and there were no apparent complications. There were no neurosensory changes, and the patient was monitored in the recovery area following the procedure. Post-op instructions were reviewed with the patient. Postprocedure the patient reports 100% relief of her pain secondary to the local anesthetic. Thank you for allowing me to participate in the care of this pleasant patient. David Caruso MD 12/07/2021 documented in this encounter Plan of Treatment Not on file documented as of this encounter Visit Diagnoses Diagnosis Lumbar radiculopathy- Primary Thoracic or lumbosacral neuritis or radiculitis, unspecified DDD (degenerative disc disease), lumbar Degeneration of lumbar or lumbosacral intervertebral disc Degenerative lumbar spinal stenosis Spinal stenosis of lumbar region Lumbar post-laminectomy syndrome Postlaminectomy syndrome, lumbar region Sacroiliitis (HCC) Sacroiliitis, not elsewhere classified Insomnia secondary to chronic pain Chronic right-sided low back pain without sciatica documented in this encounter Administered Medications Inactive Administered Medications - up to 3 most recent administrations Medication Order MAR Action Action Date Dose Rate Site iohexoL (OMNIPAQUE) 240 mg iodine/mL injection solution As needed, Starting on Fri12/07/21 at 0858, Intra-Op Given 12/07/2021 8:58 AM CDT 2 mL Back lidocaine PF (XYLOCAINE) 10 mg/mL (1 %) preservative free injection As needed, Starting on Fri12/07/21 at 0857, Intra-Op Given 12/07/2021 8:57 AM CDT 3 mL Back sodium chloride 0.9% solution As needed, Starting on Fri12/07/21 at 0857, Intra-Op Given 12/07/2021 8:59 AM CDT 2 mL Back triamcinolone (KENALOG) 40 mg/mL injection As needed, Starting on Fri12/07/21 at 0858, Intra-Op Given 12/07/2021 8:59 AM CDT 80 mg Back documented in this encounter Care Teams Food Counselor Relationship Specialty Start Date End Date Lalito England MD [address] [place] [address] PCP - General 08/03/19 documented as of this encounter
--- OUTSIDE RECORDS SUMMARY | 2024-07-11 22:38 | XMS_ITS | Encounter Summary ---
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 Patient notified. * Telephone Encounter - Lalito England MD - 12/21/2021 5:05 PM CDT Called patient . Reviewed labwork. No veritiog, no orthosasis. No hypoglycmeia. Will refer to PT. Order placed. WOuld like to use [facility] next door. * Telephone Encounter - Svitlana Mitchell - 12/21/2021 4:30 PM CDT Pt called, she saw you in November and spoke with you about a fall she had. She states that the spot is still sore top of head since fall in November.Patient also complains that her Legs are getting weaker since fall and has caused more falls. Please advise. documented in this encounter Plan of Treatment Not on file documented as of this encounter Visit Diagnoses Not on filedocumented in this encounter Care Teams Last Waxer Relationship Specialty Start Date End Date Lalito [place] [address] PCP - General 08/03/19 documented as of this encounter
--- OUTSIDE RECORDS SUMMARY | 2024-07-11 22:38 | XMS_ITS | Encounter Summary ---
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 Gender Identity Not on file Sexual Orientation Not on file documented as of this encounter Plan of Treatment Not on file documented as of this encounter Procedures Procedure Name Priority Date/Time Associated Diagnosis Comments SCAN - RADIOLOGY/IMAGING 02/05/2022 documented in this encounter Results * SCAN - RADIOLOGY/IMAGING (02/05/2022) Anatomical Region Laterality Modality Other us Provider Scanning Final Result documented in this encounter Visit Diagnoses Not on filedocumented in this encounter Care Teams Motorcycle Mechanic Relationship Specialty Start Date End Date Lalito England MD [address] [place] [address] PCP - General 08/03/19 documented as of this encounter
--- OUTSIDE RECORDS SUMMARY | 2024-07-11 22:38 | XMS_ITS | Encounter Summary ---
Author Organization [facility] Address [address] [place] [address] Care Team Providers Care Air Compressor Mechanic Name Role Phone Lalito England MD Primary Care Provider [phone] [phone] Reason for Visit * Reason Comments Follow-up 2 mo follow up Encounter Details Date Type Department Care Team (Late st Contact Info) Description 10/22/2021 2:15 PM CDT Office Visit [facility] [address] [place] [address] Lalito England MD [address] [place] [place] [address] CKD (chronic kidney disease) stage 4, GFR 15-29 ml/min (CMS/HCC) (HCC) (Primary Dx); Chronic right-sided low back pain without sciatica; Sarcoidosis of lung (CMS/HCC) (HCC); Sacroiliitis (HCC); Controlled type 2 diabetes mellitus with stage 4 chronic kidney disease, with long-term current use of insulin (CMS/HCC) (HCC); Hypertension associated with diabetes (HCC); Type 2 diabetes mellitus with hyperlipidemia (HCC); BMI 37.0-37.9, adult; Severe obesity (BMI 35.0-39.9) with comorbidity (CMS/HCC) (HCC) Social History Tobacco Use Types [...] on file 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 Gender Identity Not on file Sexual Orientation Not on file documented as of this encounter Last Filed Vital Signs Vital Sign Reading Time Taken Comments Blood Pressure 122/60 10/22/2021 2:17 PM CDT Pulse 90 10/22/2021 2:17 PM CDT Temperature 37.4 ??C (99.3 ??F) 10/22/2021 2:17 PM CD T Respiratory Rate 16 10/22/2021 2:17 PM CDT Oxygen Saturation 95% 10/22/2021 2:17 PM CDT Inhaled Oxygen Concentration - - Weight 106.5 kg (234 lb 12.8 oz) 10/22/2021 2:17 PM CDT Height 167.6 cm (5' 5.98 ) 10/22/2021 2:17 PM CD T Body Mass Index 37.92 10/22/2021 2:17 PM CDT documented in this encounter Progress Notes * Lalito England MD - 10/22/2021 2:15 PM CDT Images from the original note were not included. [facility] Chief Complaint. Chief Complaint Patient presents with ??? Follow-up 2 mo follow up HPI. Patient is a 71 y.o. female Patient follows with Dr. Paige for chronic kidney disease and will monitor response. Diabetes She presents for her follow-up diabetic visit. She has type 2 diabetes mellitus. Her disease coursehas been stable. Hypoglycemia symptoms include dizziness and nervousness/anxiousness. Pertinent negatives for hypoglycemia include no headaches, hunger, sleepiness or tremors. Associated symptoms include fatigue, foot paresthesias and weakness. Pertinent negatives for diabetes include no chest pain, no foot ulcerations, no polyuria and no visual change. Symptoms are stable. Diabetic complicationsinclude nephropathy and peripheral neuropathy. Pertinent negatives for diabetic complications include no heart disease. Risk factors for coronary artery disease include post-menopausal, sedentary life style, obesity, dyslipidemia, diabetes mellitus and hypertension. Current diabetic treatment includes insulin injections and oral agent (monotherapy). She is compliant with treatment most of the time. Her weight is stable. She is following a generally healthy and diabetic diet. Meal planning includes avoidance of concentrated sweets. She has not had a previous visit with a dietitian. She participates in exercise intermittently. Her home blood glucose trend is fluctuating minimally. An REYNALDO inhibitor/angiotensin II receptor moses is contraindicated. She does not see a technical manager.Eye exam is current. Hypertension This is a chronic problem. The current episode started more than 1 year ago. The problem has been waxing and waning since onset. The problem is controlled. Associated symptoms include malaise/fatigue. Pertinent negatives include no chest pain, headaches, neck pain, orthopnea, palpitations, peripheral edema or shortness of breath. Risk factors for coronary artery disease include diabetes mellitus,dyslipidemia, obesity, post-menopausal state, sedentary lifestyle and stress. Past treatments include calcium channel blockers, central alpha agonists and diuretics. The current treatment provides moderate improvement. Compliance problems include diet and exercise. Hypertensive end-organ damage includes kidney disease. There is no history of CAD/UT. Identifiable causes of hypertension include chronic renal disease. Hyperlipidemia This is a chronic problem. The current episode started more than 1 year ago. The problem is controlled. Recent lipid tests were reviewed and are normal. Exacerbating diseases include chronic renal disease, diabetes and obesity. Pertinent negatives include no chest pain, myalgias or shortness of breath. Current antihyperlipidemic treatment includes statins. The current treatment provides moderate improvement of lipids. Compliance problems include adherence to diet and adherence to exercise. Riskfactors for coronary artery disease include diabetes mellitus, dyslipidemia, hypertension, obesity,stress, a sedentary lifestyle and post-menopausal. Past Medical History: Diagnosis Date ??? Benign hypertension with CKD (chronic kidney disease) stage III (HCC) ??? Gastroesophageal reflux disease GERD ??? HX OTHER MEDICAL PMO ??? 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 HX OTHER MEDICAL [facility] OA [...] of previous hip arthroplasty left hip; Comments: [facility] TCU unit 02/06 - 02/17/16 for rehabilitation. [...] 2004 L TKA ??? OTHER SURGICAL HISTORY 2002 R TKA ??? OTHER SURGICAL HISTORY 2007 back surgery - microdecompression Lumbar ??? OTHER SURGICAL HISTORY Fall: Medical Management ??? OTHER SURGICAL HISTORY 2015 conversion of previous hip arthroplasty left hip: Conversion of Arthroplasty left hip ??? REDUCTION MAMMAPLASTY Bilateral 2008 ??? TONSILLECTOMY tonsillectomy HOME MEDICATIONS : albuterol HFA (PROVENTIL HFA,VENTOLIN HFA) 90 mcg/actuation inhaler alendronate (FOSAMAX) 70 mg tablet amLODIPine (NORVASC) 5 mg tablet aspirin 81 mg enteric coated tablet dgpzlpt-fbfhrrjjvvflb-ojzkbheq (EXCEDRIN MIGRAINE) 250-250-65 mg per tablet blood [...] mg tablet traMADol (ULTRAM) [address] (CYMBALTA) 30 mg capsule Allergies Allergen Reactions ??? Hydrocodone Other (See [...] and wheezing. Cardiovascular: Negative for chest pain, palpitations, orthopnea and leg swelling. Gastrointestinal: Negative for abdominal pain, blood in stool, constipation, diarrhea, nausea and vomiting. Endocrine: Negative for polyuria. Genitourinary: Negative for dysuria, hematuria and urgency. Musculoskeletal: Positive for arthralgias and gait problem. Negative for back pain, myalgias and neck pain. Skin: Negative for rash. Neurological: Positive for dizziness and weakness. Negative for tremors, light- headedness and headaches. Notes some dizziness since starting duloxetine. Now holding and has noted some improvement. Hematological: Negative for adenopathy. Psychiatric/Behavioral: Negative for dysphoric mood, sleep disturbance and suicidal ideas. The patient is nervous/anxious. BP 122/60 (BP Location: Left arm, Patient Position: Sitting) Pulse 90 Temp 37.4 ??C (99.3 ??F) (Oral) Resp 16 Ht 167.6 cm (5' 5.98 ) Wt 106.5 kg (234 lb 12.8 oz) SpO2 95% BMI 37.92 kg/m?? Physical Exam: Physical Exam Vitals reviewed. Constitutional: General: She is not in acute distress. HENT: Mouth/Throat: Pharynx: No oropharyngeal exudate. Eyes: General: No scleral icterus. Neck: Vascular: No JVD. Cardiovascular: Rate and Rhythm: Normal rate and regular rhythm. Pulses: Dorsalis pedis pulses are 2+ on the right side and 2+ on the left side. Heart sounds: No murmur heard. Pulmonary: Effort: Pulmonary effort is normal. No respiratory distress. Breath sounds: Normal breath sounds. Abdominal: General: Bowel sounds are normal. Palpations: Abdomen is soft. Musculoskeletal: Cervical back: Neck supple. Feet: Right Foot: Monofilament exam: abnormal. Left Foot: Monofilament exam: abnormal. Lymphadenopathy: Cervical: No cervical adenopathy. Skin: Findings: No erythema. Neurological: Mental Status: She is alert and oriented to person, place, and time. Psychiatric: Thought Content: Thought content normal. Assessment & Plan: Diagnoses and all orders for this visit: CKD (chronic kidney disease) stage 4, GFR 15-29 ml/min ([facility]) ([facility]) (Primary) Continue f/u with Dr. Paige and will tonny resopnse. Chronic right-sided low back pain without sciatica Continue f/u with Dr. Caruso and tonny response. Sarcoidosis of lung ([facility]) ([facility]) Sacroiliitis ([facility]) Controlled type 2 diabetes mellitus with stage 4 chronic kidney disease, with long-term current useof insulin ([facility]) ([facility]) Continue f/u with Dr. Paige, improving glycemic control. Hypertension associated with diabetes ([facility]) Stable on the current reimgne. WIll montior presnopse. Type 2 diabetes mellitus with hyperlipidemia (HCC) Continue on statin Therapy and will follow response. BMI 37.0-37.9, adult Severe obesity (BMI 35.0-39.9) with comorbidity ([facility]/HCC) (HCC) [place] continued healhty food choices. BMI Follow-up includes: nutrition counseling. Body mass index is 37.92 kg/m??. Lalito England MD documented in this encounter Plan of Treatment Not on file documented as of this encounter Visit Diagnoses Diagnosis CKD (chronic kidney disease) stage 4, GFR 15-29 ml/min ([facility]/HCC) (HCC)- Primary Chronic kidney disease, Stage IV (severe) Chronic right-sided low back pain without sciatica Sarcoidosis of lung (HCC) Sarcoidosis Sacroiliitis (HCC) Sacroiliitis, not elsewhere classified Controlled type 2 diabetes mellitus with stage 4 chronic kidney disease, with long-term current use of insulin (HCC) Hypertension associated with diabetes (HCC) Unspecified essential hypertension Type 2 diabetes mellitus with hyperlipidemia (HCC) BMI 37.0-37.9, adult Severe obesity (BMI 35.0-39.9) with comorbidity (HCC) documented in this encounter Discontinued Medications Medication Sig Discontinue Reason Start Date End Da te DULoxetine DR (CYMBALTA) 30 mg capsule Take 1 capsule (30 mg total) by mouth daily Therapy completed 09/07/2021 10/22/2021 documented as of this encounter Care Teams Air Compressor Mechanic Relationship Specialty Start Date End Date [place] [address] PCP - General 08/03/19 documented as of this encounter
--- OUTSIDE RECORDS SUMMARY | 2024-07-11 22:38 | XMS_ITS | Encounter Summary ---
Author Organization [facility] Healthcare Address [address] [place] [address] Care Team Providers Care Permit Technician Name Role Phone Lalito England MD Primary Care Provider [phone] [phone] Reason for Visit * Diagnostic Imaging (Routine) - Closed Specialty Diagnoses / Procedures Referred By Contac t Referred To Contact Diagnoses Pain Procedures FL Fluoroscopy < 1 Hour David Caruso MD Phone: tel: fax: [address] [address] Referral ID Status Reason Start Date Expiration Date Visits Re quested Visits Authorized [id number] Closed 11/01/2021 12/01/2022 1 1 Encounter Details Date Type Department Care Team (Late st Contact Info) Description 11/01/2021 8:50 AM CDT Ancillary Procedure [address] [address] Pain Social History Tobacco Use Types Packs/Day [...] on file 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 ??Please refer to the physician's procedure / OR operative note. us David Caruso MD IMG FLUOROSCOPY PROCEDURES F inal Result [facility] documented in this encounter Visit Diagnoses Diagnosis Pain Generalized pain documented in this encounter Care Teams Permit Technician Relationship Specialty Start Date End Date Lalito England MD [address] [place] [address] PCP - General 08/03/19 documented as of this encounter
--- OUTSIDE RECORDS SUMMARY | 2024-07-11 22:38 | XMS_ITS | Encounter Summary ---
Author Organization [facility] Healthcare Address [address] [place] [address] Care Team Providers Care Can Filling And Closing Machine Tender Name Role Phone Lalito England MD Primary Care Provider [phone] [phone] Reason for Visit * Diagnostic Imaging (Routine) - Closed Specialty Diagnoses / Procedures Referred By Contac t Referred To Contact Diagnoses Pain Procedures FL Fluoroscopy < 1 Hour David Caruso MD Phone: tel: fax: [address] [phone] Referral ID Status Reason Start Date Expiration Date Visits Re quested Visits Authorized [id number] Closed 12/07/2021 01/06/2023 1 1 Encounter Details Date Type Department Care Team (Late st Contact Info) Description 12/07/2021 8:45 AM CDT Ancillary Procedure [address] [place] [address] Pain Social History Tobacco Use Types Packs/Day [...] on file 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 ??Please refer to the physician's procedure / OR operative note. David Caruso MD IMG FLUOROSCOPY PROCEDURES F inal Result [facility] documented in this encounter Visit Diagnoses Diagnosis Pain Generalized pain documented in this encounter Care Teams Can Filling And Closing Machine Tender Relationship Specialty Start Date End Date Lalito England MD [address] [place] [address] PCP - General 08/03/19 documented as of this encounter
--- OUTSIDE RECORDS SUMMARY | 2024-07-11 22:38 | XMS_ITS | Encounter Summary ---
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 No evidence of CHF but progression of kidney disease. Please forward results toDr. Paige, nephrology and will look forward to his recommendations. He is her established lei maker. documented in this encounter Plan of Treatment Not on file documented as of this encounter Procedures Procedure Name Priority Date/Time Associated Diagnosis Comments EGFR Routine 11/27/2021 4:04 PM CDT Dizziness DIFFERENTIAL AUTO Routine 11/27/2021 4:0 4 PM CDT Dyspnea on exertion PRO B-TYPE NATRIURETIC PEPTIDE Routine 11/27/2021 4:04 PM CDT Dizziness CBC WITH AUTO DIFFERENTIAL Routine 11/27/2021 4:04 PM CDT Dyspnea on exertion TSH Routine 11/27/2021 4:04 PM CDT Fatigue, unspecified type RENAL FUNCTION PANEL Routine 11/27/2021 4:04 PM CDT Dizziness documented in this encounter Results * eGFR (11/27/2021 4:04 PM CDT) eGFR 18 mL/min/1. 73 m2 ANN MENDES Comment: Interpretive Data Reference Interval Normal ?>/= [...] interpretive data was last reviewed 2021. Blood 11/27/2021 4:04 PM CDT 11/27/2021 10:08 PM CDT us Lalito England MD LAB BLOOD ORDERABLES Jessica reynolds Result [facility] [address] [place] [address] * (ABNORMAL) Differential, auto (11/27/2021 4:04 PM CDT) Neutrophil abs 9.7(H) 1.7 - 6.5 K/cumm [facility] Imm gran abs 0.3(H) 0.0 - 0.1 K/cumm [facility] Lymphocyte abs 1.1 0.8 - 3.3 K/cumm [facility] Monocyte abs 0.8 0.2 - 0.8 K/cumm [facility] Eosinophil abs 0.1 0.0 - 0.5 K/cumm [facility] Basophil abs 0.1 0.0 - 0.1 K/cumm [facility] Neutrophil pct 80.1 % [facility] Comment: Interpretive Data Percent cell count reference ranges are not reported, since discordance with absolute values may lead to misinterpretation of CBC data. Current Interpretive Data was last revised on 2017. Imm gran pct 2.3 % [facility] Comment: Interpretive Data Percent cell count reference ranges are not reported, since discordance with absolute values may lead to misinterpretation of CBC data. Current Interpretive Data was last revised on 2017. Lymphocyte pct 9.1 % [facility] Comment: Interpretive Data Percent cell count reference ranges are not reported, since discordance with absolute values may lead to misinterpretation of CBC data. Current Interpretive Data was last revised on 2017. Monocyte pct 6.9 % [facility] Comment: Interpretive Data Percent cell count reference ranges are not reported, since discordance with absolute values may lead to misinterpretation of CBC data. Current Interpretive Data was last revised on 2017. Eosinophil pct 1.2 % [facility] Comment: Interpretive Data Percent cell count reference ranges are not reported, since discordance with absolute values may lead to misinterpretation of CBC data. Current Interpretive Data was last revised on 2017. Basophil pct 0.4 % [facility] Comment: Interpretive Data Percent cell count reference ranges are not reported, since discordance with absolute values may lead to misinterpretation of CBC data. Current Interpretive Data was last revised on 2017. Blood 11/27/2021 4:04 PM CDT 11/27/2021 9:44 PM CDT Lalito England MD LAB BLOOD ORDERABLES Jessica reynolds Result [facility] [address] Department [place] [address] * Pro B-type natriuretic peptide (11/27/2021 4:04 [...] et.al. Eur Heart J. 2006:27:330-337. 2. Jered RW, Carlos DIEGO. J. AM Adia Cardiol: Cardiovasc Imag. 2009;2: 216- 225. Interpretive Data Last Revised Date: 2018. Blood 11/27/2021 4:04 PM CDT 11/27/2021 9:44 PM CDT Lalito England MD LAB BLOOD ORDERABLES Jessica reynolds Result [facility] [address] Department [place] [address] * (ABNORMAL) Renal function panel (11/27/2021 4:04 PM CDT) Sodium 136 135 - 145 mmol/L [facility] Potassium, pl 4.7 3.3 - 4.9 mmol/L [facility] Chloride 102 97 - 110 mmol/L [facility] CO2 20(L) 22 - 32 mmol/L [facility] Anion gap 14 2 - 15 mmol/L [facility] BUN 50(H) 8 - 25 mg/dL [facility] Creatinine 2.66(H) 0.60 - 1.10 mg/dL [facility] Glucose 135 70 - 199 mg/dL [facility] Comment: Interpretive Data Fasting glucose >/= [...] 2017. Calcium 10.0 8.5 - 10.3 mg/dL [facility] Phosphorus, pl 3.4 2.3 - 4.5 mg/dL [facility] Albumin 3.5 3.5 - 5.0 g/dL [facility] Blood 11/27/2021 4:04 PM CDT 11/27/2021 9:44 PM CDT us Lalito England MD LAB BLOOD ORDERABLES Jessica reynolds Result [facility] [address] Department [place] [address] * (ABNORMAL) CBC with auto differential (11/27/2021 4:04 PM CDT) WBC 12.1(H) 3.8 - 9.9 K/cumm [facility] Hgb 12.1 11.9 - 15.5 g/dL [facility] Hct 38.7 35.6 - 45.5 % [facility] Plt 242 150 - 400 K/cumm [facility] MPV 9.9 9.1 - 12.3 fL [facility] RBC 4.30 3.90 - 5.20 M/cumm [facility] MCV 90.0 81.3 - 96.4 fL [facility] MCH 28.1 27.1 - 33.3 pg [facility] MCHC 31.3(L) 32.3 - 35.7 g/dL [facility] RDW CV 18.0(H) 11.1 - 14.9 % [facility] RDW SD 58.1(H) 35.7 - 48.1 fL [facility] NRBC abs 0.00 0.00 - 0.01 K/cumm [facility] Blood 11/27/2021 4:04 PM CDT 11/27/2021 9:44 PM CDT Lalito England MD LAB BLOOD ORDERABLES Jessica l Result Performing Organization Address City/[facility]/ZIP Co de Phone Number ANN MENDES [address] [place], [place] [id number] * TSH (11/27/2021 4:04 PM CDT) Thyroid Stimulating Hormone 2.10 0.30 - 4.20 mcIUnit/mL [facility] Blood 11/27/2021 4:04 PM CDT 11/27/2021 9:44 PM CDT Lalito England MD LAB BLOOD ORDERABLES Jessica l Result Performing Organization Address [facility] Co de Phone Number ANN MENDES [address] [facility] [employer] [place], [place] [phone] documented in this encounter Visit Diagnoses Diagnosis Fatigue, unspecified type Dyspnea on exertion Other dyspnea and respiratory abnormality Dizziness Dizziness and giddiness documented in this encounter Care Teams Publications Editor Relationship Specialty Start Date End Date [place] [address] PCP - General 08/03/19 documented as of this encounter
--- OUTSIDE RECORDS SUMMARY | 2024-07-11 22:38 | XMS_ITS | Encounter Summary ---
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
--- OUTSIDE RECORDS SUMMARY | 2024-07-11 22:38 | XMS_ITS | Encounter Summary ---
Author Organization [facility] Address [address] [place] [address] Care Team Providers Care Talent Scout Name Role Phone Lalito England MD Primary Care Provider [phone] [phone] Encounter Details Date Type Department Care Team (Late st Contact Info) Description 02/22/2022 Orders Only [facility] Medical 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
--- OUTSIDE RECORDS SUMMARY | 2024-07-11 22:38 | XMS_ITS | Encounter Summary ---
Author Organization [facility] Healthcare Address [address] [place] [address] Care Team Providers Care Blind Escort Name Role Phone Lalito England MD Primary Care Provider [phone] [phone] Encounter Details Date Type Department Care Team (Late st Contact Info) Description 01/25/2022 Orders Only [facility] 2 [facility] Bridgette Rodney. 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 Gender Identity Not on file Sexual Orientation Not on file documented as of this encounter Ordered Prescriptions Prescription Sig Dispense Quantity Refills Last Filled Start Date End Date cyclobenzaprine (FLEXERIL) 10 mg tablet Take 1 tablet (10 mg total) by mouth nightly as needed for muscle spasms 30 tablet 2 01/25/2022 3 documented in this encounter Plan of Treatment Not on file documented as of this encounter Visit Diagnoses Not on filedocumented in this encounter Discontinued Medications Medication Sig Discontinue Reason Start Date End Da te cyclobenzaprine (FLEXERIL) 10 mg tablet Take 1 tablet (10 mg total) by mouth nightly as needed for muscle spasms Reorder 10/02/2021 01/25/2022 documented as of this encounter Care Teams Blind Escort Relationship Specialty Start Date End Date Lalito England MD [address] [place] [address] PCP - General 08/03/19 documented as of this encounter
--- OUTSIDE RECORDS SUMMARY | 2024-07-11 22:38 | XMS_ITS | Encounter Summary ---
Author Organization [facility] Address [address] [place] [address] Care Team Providers Care Mica Paster Name Role Phone Lalito England MD Primary Care Provider [phone] [phone] Chante Leon [facility] Unavailable [phone] Reason for Visit * Reason Comments Chart Review Payor Novolog to Ins ulin Aspart Conversion Opportunity Encounter Details Date Type Department Care Team (Late st Contact Info) Description 01/04/2022 ACO Clinical Pharmacist Chart Review [facility] Accountable Care Organization [address] [place] [address] Chante Leon [facility] [address] [facility] [address] [place] [address] Social History Tobacco Use Types Packs/Day Years [...] on file Legal Sex Female 11:52 PM PIZZA CHEF Gender Identity Not on file Sexual Orientation Not on file documented as of this encounter Progress Notes * Chante Leon, [facility] - 01/04/2022 12:32 PM CDT Payor Novolog to Insulin Aspart Conversion Opportunity Recommend: Switch Rx for Novolog to generic Insulin aspart with same directions (dose, route, frequency), withrefills as appropriate. Please respond Approve and I will send in Rx on your behalf. Follow-up: with this typewriter assembler as warranted. Closing clinical episode. ACO Clinical Helicopter Officer remains available for future consult as desired. Chante Leon, Pharm.D., [facility] Clinical Helicopter Officer [facility] ([facility] [place] & Accountable Care Organization ([facility]) Assessment (Provider FYI): ??? Since 2019, there is an authorized generic, Insulin aspart, which is a substitute for brand insulin, Novolog. o An authorized generic is the exact same formulation as its brand counterpart and is typically manufactured by the same company. ??? Retail prices for generic Insulin aspart are currently about half of brand name Novolog. o Substituting covered Insulin aspart for Novolog is beneficial because it slows drug cost accumulation for the patient. - Less drug cost per fill means it it takes longer for the patient to get to the donut hole / coverage gap stage of Medicare drug insurance ??? In the donut hole, drug prices rise dramatically o Risk for non-adherence to costly medications goes up o Most patients usually experience the donut hole until July 14 the following year, which creates a long window of possible non-adherence by continuing brand name Novolog instead of generic Insulin aspart. Patient Education to be provided via letter out: At [facility], we care about improving affordable access to your medicines. There is now a generic for Novolog insulin. It is called Insulin aspart and works exactly the same as your current Novolog insulin but costs less per each fill to be covered by your insurance. What this means for you: ??? A new prescription for Insulin aspart will be sent to your pharmacy. This replaces Novolog. ??? Directions for using Insulin aspart will be the same as they were for Novolog. ??? Filling the more affordable Insulin aspart will take longer for you to hit the donut hole on your insurance than if you stayed on Novolog. Talk to your pharmacist about generic Insulin aspart if you have any additional questions. This note was created using voice recognition software. Grammatical and spelling errors may exist. If you have any questions or concerns please contact me. documented in this encounter Plan of Treatment Not on file documented as of this encounter Visit Diagnoses Not on filedocumented in this encounter Care Teams Mica Paster Relationship Specialty Start Date End Date Lalito England MD [address] [place] [address] PCP - General 08/03/19 Chante Leon RPh [address] [place] [address] [address] [place] [address] Pharmacist Pharmacy 01/04/22 01/21/22 documented as of this encounter
--- OUTSIDE RECORDS SUMMARY | 2024-07-11 22:39 | XMS_ITS | Encounter Summary ---
Author Organization [facility] Healthcare Address [address] [place] [address] Care Team Providers Care Railroad Commissioner Name Role Phone Lalito England MD Primary Care Provider [phone] [phone] Encounter Details Date Type Department Care Team (Late st Contact Info) Description 06/20/2021 2:10 PM CSW Lab [address] [phone] Osmin Paige MD [address] [place] [id number] Discharge Disposition: Discharge to home or self [...] points, staff should administer the PHQ-9) 0 02/09/2021 Comments No Sex and Gender Information Value Date Recorded Sex Assigned at Not on file Legal Sex Female 11:52 PM CSW Gender Identity Not on file Sexual Orientation Not on file documented as of this encounter Discharge Disposition Disposition Code Departure Means Destination Discharge to home or self care documented in this encounter Plan of Treatment Not on file documented as of this encounter Procedures Procedure Name Priority Date/Time Associated Diagnosis Comments URINALYSIS AND REFLEX TO MICROSCOPIC Routine 06/20/2021 2:20 PM CSW PROTEIN / CREATININE RATIO, URINE, RANDOM Routine 06/20/2021 2:20 PM CSW EGFR Routine 06/20/2021 2:11 PM CSW EGFR Routine 06/20/2021 2:11 PM CSW DIFFERENTIAL AUTO Routine 06/20/2021 2:1 1 PM CSW IRON PROFILE W/ IBC Routine 06/20/2021 2 :11 PM CSW CBC WITH AUTO DIFFERENTIAL Routine 06/20/2021 2:11 PM CSW URIC ACID Routine 06/20/2021 2:11 PM CSW PHOSPHORUS Routine 06/20/2021 2:11 PM CSW PTH Routine 06/20/2021 2:11 PM CSW HEMOGLOBIN A1C Routine 06/20/2021 2:11 PM CSW CREATININE Routine 06/20/2021 2:11 PM CSW BILIRUBIN, DIRECT Routine 06/20/2021 2:1 1 PM CSW COMPREHENSIVE METABOLIC PANEL Routine 06/20/2021 2:11 PM CSW VOLUME AND PERIOD, URINE, 24 HOUR Routine 06/20/2021 11:30 AM CSW CREATININE CLEARANCE, URINE, 24 HOUR RESULT Routine 06/20/2021 11:30 AM CSW documented in this encounter Results * (ABNORMAL) Urinalysis reflex to microscopic (06/20/2021 2:20 PM CSW) Color, ur Straw Yellow [facility] ([place]) Clarity, ur Clear Clear [facility] ([place]) Specific gravity, ur 1.007 1.003 - 1.030 [facility] ([place]) pH, urine 5.0 [facility] ([place]) Protein, ur ql Negative [...] reflex comment Reflex conditions for microscopic UA not met. [facility] ([place]) Urine 06/20/2021 2:20 PM CSW 06/20/2021 3:41 PM CS[facility]ative [facility] - 06/20/2021 3:54 PM CSW ?? Urine pH is affected by diet, medications, systemic acid-base disturbances, and renal tubular function. ??pH may affect urinary stone formation. ??For example, urine pH below 6.0 may help reduce the tendency for calcium phosphate stones and pH greater than 6.0 may reduce the tendency for uric acid stone formation. Source: [facility] [address]. Last revised 07-24-2017 us Osmin Paige MD LAB URINE ORDERABLES Final Re sult [facility] ([place]) 1 [facility] Department [place] [address] * Protein / creatinine ratio, urine, random (06/20/2021 2:20 PM CSW) Protein, ur, quant 5.0 mg/dL [facility] ([place]) Comment: Interpretive Data No reference range established. Current interpretive data was last revised 2018. Creatinine Ur 44.0 mg/dL [facility] ([place]) Comment: Interpretive Data No reference range established. Current interpretive data was last revised 2018. Protein/creatinin e ratio 113.6 0.0 - 180.0 mg/g CR [facility] ([place]) Urine 06/20/2021 2:20 PM CSW 06/20/2021 3:41 PM CSW us Osmin Paige MD LAB URINE ORDERABLES Final Re sult ANN [facility] ([place]) 1 [facility] Department [place] [address] * eGFR (06/20/2021 2:11 PM CSW) eGFR 22 mL/min/1.7 3 m2 [facility] ([place]) Comment: Interpretive Data Reference Interval Normal ?>/= 90 mL/min/1.73m2 Mildly decreased* ? 60 - 89 mL/min/1.73m2 Mildly to moderately decreased ?45 - 59 mL/min/1.73m2 Moderately to severely decreased ??30 - 44 mL/min/1.73m2 Severely decreased ?15 - 29 mL/min/1.73m2 Kidney Failure ?< 15 ??mL/min/1.73m2 *Relative to young adult level Estimated glomerular filtration rate is determined by the CKD-EPI equation recommended by the National Kidney Foundation (KDIGO 2012 Clinical Practice Guideline for the Evaluation and Management of Chronic Kidney Disease. Kidney Intnl Suppl Jul 2012;3:1). The CKD-EPI equation should not be used for patients with unstable renal function and has not been validated in children and those over 70. Current interpretive data was last reviewed 2020 Blood 06/20/2021 2:11 PM CSW 06/20/2021 2:38 PM CSW us Osmin Paige MD LAB BLOOD ORDERABLES Final Re sult Performing Organization Address City/[facility]/ZIP Co de Phone Number [facility] ([place]) 1 [facility] [place] [address] [place] [address] * eGFR (06/20/2021 2:11 PM CSW) eGFR 21 mL/min/1.7 3 m2 [facility] ([place]) Comment: Interpretive Data Reference Interval Normal ?>/= 90 mL/min/1.73m2 Mildly decreased* ? 60 - 89 mL/min/1.73m2 Mildly to moderately decreased ?45 - 59 mL/min/1.73m2 Moderately to severely decreased ??30 - 44 mL/min/1.73m2 Severely decreased ?15 - 29 mL/min/1.73m2 Kidney Failure ?< 15 ??mL/min/1.73m2 *Relative to young adult level Estimated glomerular filtration rate is determined by the CKD-EPI equation recommended by the National Kidney Foundation (KDIGO 2012 Clinical Practice Guideline for the Evaluation and Management of Chronic Kidney Disease. Kidney Intnl Suppl Jul 2012;3:1). The CKD-EPI equation should not be used for patients with unstable renal function and has not been validated in children and those over 70. Current interpretive data was last reviewed 2020 Urine/Blood 06/20/2021 2:11 PM CSW 06/20/2021 2:38 PM CSW Osmin Paige MD LAB BLOOD ORDERABLES Final Re sult Performing Organization Address City/[facility]/ZIP Co de Phone Number [facility] ([place]) 1 [facility] Department [place] [address] [place] [address] * Phosphorus (06/20/2021 2:11 PM CSW) Phosphorus, pl 3.6 2.3 - 4.5 mg/dL [facility] ([place]) Blood 06/20/2021 2:11 PM CSW 06/20/2021 2:38 PM CSW Osmin Paige MD LAB BLOOD ORDERABLES Final Re sult [facility] ([place]) 1 [facility] [place] [address] [place] [address] * Bilirubin, direct (06/20/2021 2:11 PM CSW) Pathologist [facility] Bilirubin, direct <0.2 0.1 - 0.3 mg/dL [facility] ([place]) Blood 06/20/2021 2:11 PM CSW 06/20/2021 2:38 PM CSW Osmin Paige MD LAB BLOOD ORDERABLES Final Re sult [facility] ([place]) 1 [facility] [address] [place] [address] * (ABNORMAL) Comprehensive metabolic panel (06/20/2021 2:11 PM CSW) Pathologist [facility] Sodium 137 135 - 145 mmol/L [facility] Potassium, pl 4.2 3.3 - 4.9 mmol/L [facility] ([place]) Chloride 98 97 - 110 mmol/L [facility] ([place]) CO2 25 22 - 32 mmol/L [facility]) Anion gap 14 2 - 15 mmol/L [facility] BUN 36(H) 8 - 25 mg/dL [facility] ([place]) Creatinine 2.19(H) 0.60 - 1.10 mg/dL [facility] ([place]) Glucose 90 70 - 199 mg/dL [facility] Comment: Interpretive Data Fasting glucose [...] interpretive data was last revised 2017. Calcium 9.8 8.5 - 10.3 mg/dL [facility] ([place]) Bilirubin, total 0.5 0.1 - 1.2 mg/dL [facility] ([place]) Protein, pl 7.7 6.5 - 8.5 g/dL [facility] ([place]) Albumin 3.8 3.5 - 5.0 g/dL [facility] ([place]) Alk phos 101 40 - 130 Units/L [facility] ([place]) ALT 17 7 - 45 Units/L [facility] [place]) AST 21 10 - 45 Units/L [facility] ([place]) Blood 06/20/2021 2:11 PM CSW 06/20/2021 2:38 PM CSW us Osmin Paige MD LAB BLOOD ORDERABLES Final Re sult [facility] ([place]) 1 [facility] Department [place] [address] * (ABNORMAL) Differential, auto (06/20/2021 2:11 PM CSW) Neutrophil abs 7.7(H) 1.7 - 6.5 K/cumm [facility] ([place]) Imm gran abs 0.0 0.0 - 0.1 K/cumm [facility] ([place]) Lymphocyte abs 1.6 0.8 - 3.3 K/cumm [facility] ([place]) Monocyte abs 0.7 0.2 - 0.8 K/cumm [facility] ([place]) Eosinophil abs 0.3 0.0 - 0.5 K/cumm [facility] ([place]) Basophil abs 0.1 0.0 - 0.1 K/cumm [facility] ([place]) Neutrophil pct 74.3 % [facility] ([place]) Comment: Interpretive Data Percent cell count reference ranges are not reported, since discordance with absolute values may lead to misinterpretation of CBC data. Current Interpretive Data was last revised on 2017. Imm gran pct 0.3 % [facility] ([place]) Comment: Interpretive Data Percent cell count reference ranges are not reported, since discordance with absolute values may lead to misinterpretation of CBC data. Current Interpretive Data was last revised on 2017. Lymphocyte pct 15.1 % [facility] ([place]) Comment: Interpretive Data Percent cell count reference ranges are not reported, since discordance with absolute values may lead to misinterpretation of CBC data. Current Interpretive Data was last revised on 2017. Monocyte pct 7.1 % [facility] ([place]) Comment: Interpretive Data Percent cell count reference ranges are not reported, since discordance with absolute values may lead to misinterpretation of CBC data. Current Interpretive Data was last revised on 2017. Eosinophil pct 2.4 % [facility] ([place]) Comment: Interpretive Data Percent cell count reference ranges are not reported, since discordance with absolute values may lead to misinterpretation of CBC data. Current Interpretive Data was last revised on 2017. Basophil pct 0.8 % [facility] ([place]) Comment: Interpretive Data Percent cell count reference ranges are not reported, since discordance with absolute values may lead to misinterpretation of CBC data. Current Interpretive Data was last revised on 2017. Blood 06/20/2021 2:11 PM CSW 06/20/2021 2:38 PM CSW us Osmin Paige MD LAB BLOOD ORDERABLES Final Re sult [facility] ([place]) 1 [facility] Department [place] [address] * (ABNORMAL) Creatinine (06/20/2021 2:11 PM CSW) Creatinine 2.23(H) 0.60 - 1.10 mg/dL [facility] ([place]) Urine/Blood 06/20/2021 2:11 PM CSW 06/20/2021 2:38 PM CSW us Osmin Paige MD LAB BLOOD ORDERABLES Final Re sult [facility] ([place]) 1 [facility] [address] [place] [address] * (ABNORMAL) Iron profile w/ IBC (06/20/2021 2:11 PM CSW) Iron 50 35 - 145 mcg/dL [facility] ([place]) TIBC 383 250 - 400 mcg/dL [facility] ([place]) Transferrin saturation 13(L) 20 - 50 % [facility] ([place]) Blood 06/20/2021 2:11 PM CSW 06/20/2021 2:38 PM CSW us Osmin Paige MD LAB BLOOD ORDERABLES Final Re sult Performing Organization Address [facility]/ZIP Co de Phone Number [facility] ([place]) 1 [facility] [address] [place] [address] * (ABNORMAL) Uric acid (06/20/2021 2:11 PM CSW) Uric acid 10.5(H) 2.5 - 7.0 mg/dL [facility] ([place]) Blood 06/20/2021 2:11 PM CSW 06/20/2021 2:38 PM CSW us Osmin Paige MD LAB BLOOD ORDERABLES Final Re sult [facility] ([place]) 1 [facility] [address] [place] [address] * (ABNORMAL) PTH (06/20/2021 2:11 PM CSW) PTH 81(H) 15 - 65 pg/mL [facility] ([place]) Blood 06/20/2021 2:11 PM CSW 06/20/2021 2:38 PM CSW Osmin Paige MD LAB BLOOD ORDERABLES Final Re sult [facility] ([place]) 1 [facility] [place] [address] [place] [address] * (ABNORMAL) CBC with auto differential (06/20/2021 2:11 PM CSW) WBC 10.4(H) 3.8 - 9.9 K/cumm [facility] ([place]) Hgb 9.8(L) 11.9 - 15.5 g/dL [facility] ([place]) Hct 31.7(L) 35.6 - 45.5 % [facility] ([place]) Plt 267 150 - 400 K/cumm [facility] ([place]) MPV 10.3 9.1 - 12.3 fL [facility] ([place]) RBC 3.71(L) 3.90 - 5.20 M/cumm [facility] ([place]) MCV 85.4 81.3 - 96.4 fL [facility] ([place]) MCH 26.4(L) 27.1 - 33.3 pg [facility] ([place]) MCHC 30.9(L) 32.3 - 35.7 g/dL [facility] ([place]) RDW CV 15.3(H) 11.1 - 14.9 % [facility] ([place]) RDW SD 47.4 35.7 - 48.1 fL [facility] ([place]) NRBC abs 0.00 0.00 - 0.01 K/cumm [facility] ([place]) Blood 06/20/2021 2:11 PM CSW 06/20/2021 2:38 PM CSW Osmin Paige MD LAB BLOOD ORDERABLES Final Re sult [facility] ([place]) 1 [facility] [place] [address] [place] [address] * (ABNORMAL) Hemoglobin A1c (06/20/2021 2:11 PM CSW) Hgb A1C 11.0(H) 4.0 - 5.6 % [facility] ([place]) Estimated Average Glucose 269 mg/dL [facility] ([place]) Comment: The ADA recommends reporting an estimated Average Glucose (eAG) with all Hemoglobin A1c results using the equation derived from a study of 507 normal and diabetic adults. ??Minority populations were underrepresented and children were not included. ?? (Diabetes Care 31:9364-3405, 2008). ??The eAG is not equivalent to a fasting glucose. Blood 06/20/2021 2:11 PM CSW 06/20/2021 2:38 PM CSW Osmin Paige MD LAB BLOOD ORDERABLES Final Re sult Performing Organization Address City/[facility]/ZIP Co de Phone Number [facility] ([place]) 1 [facility] [place] [address] [place] [address] * Volume and period, urine, 24 hour (06/20/2021 11:30 AM CSW) Pathologist [facility] Volume, ur 1,375 mL [facility] ([place]) Period, Urine Collection 1,440 min [facility] ([place]) Urine/Blood 06/20/2021 11:3 0 AM CSW 06/20/2021 5:14 PM CSW Osmin Paige MD LAB URINE ORDERABLES Final Re sult [facility] ([place]) 1 [place] [address] * (ABNORMAL) Creatinine clearance, urine, 24 hour (06/20/2021 11:30 AM CSW) Creatinine Clearance 34(L) 60 - 130 mL/min [facility] ([place]) Creatinine, 24 hr, ur 1.1 0.6 - 1.5 g/24H [facility] ([place]) Urine/Blood 06/20/2021 11:3 0 AM CSW 06/20/2021 5:14 PM CSW us Osmin Paige MD LAB URINE ORDERABLES Final Re sult [facility] ([place]) 1 [facility] Department [place] [address] documented in this encounter Visit Diagnoses Not on filedocumented in this encounter Care Teams Railroad Commissioner Relationship Specialty Start Date End Date Lalito England MD [address] [place] [address] PCP - General 08/03/19 documented as of this encounter
--- OUTSIDE RECORDS SUMMARY | 2024-07-11 22:39 | XMS_ITS | Encounter Summary ---
Author Organization [facility] Healthcare Address [address] [place] [address] Care Team Providers Care Shade Cloth Finisher Name Role Phone Lalito England MD Primary Care Provider [phone] [phone] Reason for Referral * Diagnostic Imaging (Routine) - Closed Specialty Diagnoses / Procedures Referred By Contac t Referred To Contact Diagnoses Hypertension, unspecified type Type 2 diabetes mellitus with diabetic nephropathy, unspecified whether intermediate school teacher insulin use (HCC) Secondary hyperparathyroidism of renal origin (HCC) Type 2 diabetes mellitus with diabetic chronic kidney disease, unspecified CKD stage, unspecified whether intermediate school teacher insulin use (HCC) Stage 3b chronic kidney disease (HCC) Procedures Kidney Complete Osmin Paige MD Phone: tel: fax: [address] [phone] Referral ID Status Reason Start Date Expiration Date Visits Re quested Visits Authorized [id number] Closed 06/04/2021 07/04/2022 1 1 Reason for Visit * Diagnostic Imaging (Routine) - Closed Specialty Diagnoses / Procedures Referred By Contac t Referred To Contact Diagnoses Hypertension, unspecified type Type 2 diabetes mellitus with diabetic nephropathy, unspecified whether intermediate school teacher insulin use (HCC) Secondary hyperparathyroidism of renal origin (HCC) Type 2 diabetes mellitus with diabetic chronic kidney disease, unspecified CKD stage, unspecified whether half-way insulin use (HCC) Stage 3b chronic kidney disease (HCC) Procedures US Kidney Complete Osmin Paige MD Phone: tel: fax: [address] [phone] Referral ID Status Reason Start Date Expiration Date Visits Re quested Visits Authorized [id number] Closed 06/04/2021 07/04/2022 1 1 Encounter Details Date Type Department Care Team (Latest Contact Info) Description 06/28/2021 9:54 AM [facility] - 06/28/2021 11:59 PM [facility] Hospital Encounter [facility] [address] [place] [id number] Osmin Paige MD [address] [address] Hypertension, unspecified type; Type 2 diabetes mellitus with diabetic nephropathy, unspecified whether half-way insulin use (HCC); Secondary hyperparathyroidism of renal origin (CMS/HCC) (HCC); Type 2 diabetes mellitus with diabetic chronic kidney disease, unspecified CKD stage, unspecified whether half-way insulin use (HCC); Stage 3b chronic kidney disease (HCC) Discharge Disposition: Discharge to home or [...] on file Legal Sex Female 11:52 PM [facility] Gender Identity Not on file Sexual Orientation [...] BY MOUTH EVERY DAY 90 tablet 1 02/05/2021 2 aspirin 81 mg enteric coated tabletIndications: prevention of thrombosis Take 1 tablet (81 mg total) by mouth anchor tack puller before breakfast 4 aspirin-acetaminop hen-caffeine (EXCEDRIN MIGRAINE) [...] A DAY 90 tablet 1 06/25/2021 2 fluticasone propionate (FLONASE) 50 mcg/actuation nasal sprayIndications:S easonal allergic rhinitis due to pollen SPRAY 2 SPRAYS INTO EACH NOSTRIL EVERY DAY 48 mL 1 05/07/2021 2 furosemide (LASIX) 20 mg tabletIndications: Hypertension associated with type 2 diabetes mellitus (HCC) TAKE 1 TABLET BY MOUTH EVERY DAY 90 tablet 1 02/21/2021 2 gabapentin (NEURONTIN) 300 mg capsule Take 1 capsule (300 mg total) by mouth 4 (four) times a day 360 capsule 3 02/09/2021 1 irbesartan-hydroCH LOROthiazide (AVALIDE) 300-12.5 mg per tabletIndications: Hypertension associated with type 2 diabetes mellitus (HCC) TAKE 1 TABLET BY MOUTH EVERY DAY 90 tablet 1 03/19/2021 2 LANTUS 100 unit/mL (3 mL) pen for injectionIndicatio ns:Controlled type 2 diabetes mellitus with diabetic polyneuropathy, without long-term current use of insulin ([facility]) INJECT 48 UNITS UNDER THE SKIN DAILY 90 mL 1 05/07/2021 2 metFORMIN (GLUCOPHAGE) 500 mg tablet TAKE 1 TABLET BY MOUTH EVERY DAY WITH BREAKFAST 90 tablet 1 06/18/2021 1 montelukast (SINGULAIR) 10 mg tablet take 1 tablet (10MG) by ORAL route every day in the evening 0 09/18/2016 2 NovoLOG 100 unit/mL (3 mL) pen for injectionIndicatio ns:Controlled type 2 diabetes mellitus with diabetic polyneuropathy, without long-term current use of insulin ([facility]) INJECT 32 UNITS UNDER THE SKIN 3 (THREE) TIMES A DAY BEFORE MEALS 75 pen 2 11/13/[address] (PROTONIX) 40 mg EC tabletIndications: [...] long-term current use of insulin ([facility]) TAKE 1 TABLET BY MOUTH EVERY DAY AT NIGHT 90 tablet 1 03/01/2021 2 tiZANidine (ZANAFLEX) 2 mg tablet Take 1 tablet (2 mg total) by mouth every 6 (six) hours as needed for muscle spasms 30 tablet 1 02/09/2021 2 traMADol (ULTRAM) 50 mg tablet take 1 tablet by ORAL route every 6 hours as needed 60 2 06/21/2013 2 documented as of this encounter Discharge Disposition Disposition Code Departure Means Destination Discharge to home or self care documented in this encounter Plan of Treatment Not on file documented as of this encounter Procedures Procedure Name Priority Date/Time Associated Diagnosis Comments US KIDNEY COMPLETE Schedule Routine, Read Routine (OP Routine) 06/28/2021 10:34 AM [facility] Hypertension, unspecified type Type 2 diabetes mellitus with diabetic nephropathy, unspecified 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 US KIDNEY COMPLETE REASON FOR STUDY: ?? hypertension ?? TECHNIQUE: Ultrasound of the kidneys and urinary bladder was performed with grayscale imaging. LIMITATIONS: ??The examination is limited secondary to body habitus. COMPARISON: ?? 09/25/2020 FINDINGS: RIGHT KIDNEY: The right kidney measures ?? 11 ??cm in length. ?? There is no hydronephrosis. ??There is normal cortical thickness and echogenicity. LEFT KIDNEY: The left kidney measures ?? 10.2 ??cm in length. ?? There is no hydronephrosis. ??There is normal cortical thickness and echogenicity. URINARY BLADDER: ?? The urinary bladder appears normal. ??Jets are not visualized. OTHER: ?? No other additional findings. IMPRESSION: ??Normal renal ultrasound. THIS IS AN ELECTRONICALLY VERIFIED FINAL REPORT 06/28/2021 12:17 PM - Electronically signed by ??Zack Almeida M.D. KN: MEGAN D: ??06/28/2021 12:17 PM T: ??06/28/2021 12:17 PM Report ID: [id number] Reading Location: ??[id number] Procedure Note Zack Almeida MD - 06/28/2021 EXAM DESCRIPTION: US KIDNEY COMPLETE REASON FOR STUDY: hypertension TECHNIQUE: Ultrasound of the kidneys and urinary bladder was performedwith grayscale imaging. LIMITATIONS: The examination is limited secondary to body habitus. COMPARISON: 09/25/2020 FINDINGS: RIGHT KIDNEY: The right kidney measures 11 cm in length. There is no hydronephrosis. There is normal cortical thickness and echogenicity. LEFT KIDNEY: The left kidney measures 10.2 cm in length. There is no hydronephrosis. There is normal cortical thickness and echogenicity. URINARY BLADDER: The urinary bladder appears normal. Jets are not visualized. OTHER: No other additional findings. IMPRESSION: Normal renal ultrasound. THIS IS AN ELECTRONICALLY VERIFIED FINAL REPORT 06/28/2021 12:17 PM - Electronically signed by Zack Almeida M.D. KN: MEGAN Report ID: [id number] Reading Location: [place] [address] us Osmin Paige MD IMG US PROCEDURES Final Resul t documented in this encounter Visit Diagnoses Diagnosis Hypertension, unspecified type Type 2 diabetes mellitus with diabetic nephropathy, unspecified whether intermediate school teacher insulin use (HCC) Secondary hyperparathyroidism of renal origin (HCC) Secondary hyperparathyroidism (of renal origin) Type 2 diabetes mellitus with diabetic chronic kidney disease, unspecified CKD stage, unspecified whether intermediate school teacher insulin use (HCC) Stage 3b chronic kidney disease (HCC) documented in this encounter Care Teams Shade Cloth Finisher Relationship Specialty Start Date End Date [place] [address] PCP - General 08/03/19 documented as of this encounter
--- OUTSIDE RECORDS SUMMARY | 2024-07-11 22:39 | XMS_ITS | Encounter Summary ---
Author Organization [facility] Healthcare Address [address] [place] [address] Care Team Providers Care Facing Baster Name Role Phone Lalito England MD Primary Care Provider [phone] [phone] Reason for Referral * Diagnostic Imaging (Routine) - Closed Specialty Diagnoses / Procedures Referred By Contac t Referred To Contact Diagnoses Contusion of left ring finger without damage to nail, initial encounter Procedures XR Hand Left 3+ Vw Lalito England MD [address] [place] [address] Phone: tel: fax: [address] [phone] Referral ID Status Reason Start Date Expiration Date Visits Re quested Visits Authorized [id number] Closed 09/19/2021 10/19/2022 1 1 FORM SUPERVISOR Reason for Visit * Diagnostic Imaging (Routine) - Closed Specialty Diagnoses / Procedures Referred By Contac t Referred To Contact Diagnoses Contusion of left ring finger without damage to nail, initial encounter Procedures XR Hand Left 3+ Vw Lalito England MD [address] [place] [address] Phone: tel: fax: [address] [phone] Referral ID Status Reason Start Date Expiration Date Visits Re quested Visits Authorized [id number] Closed 09/19/2021 10/19/2022 1 1 Encounter Details Date Type Department Care Team (Latest Contact Info) Description 09/19/2021 3:25 PM PLATFORM SUPERVISOR - 09/19/2021 11:59 PM PLATFORM SUPERVISOR Hospital Encounter [facility] [address] [place] [address] Lalito England MD [address] [place] [address] Contusion of left ring finger without damage to nail, initial encounter Discharge Disposition: Discharge to home or self [...] points, staff should administer the PHQ-9) 0 09/19/2021 Comments No Sex and Gender Information Value Date Recorded Sex Assigned at Not on file Legal Sex Female 11:52 PM PLATFORM SUPERVISOR Gender Identity Not on file Sexual [...] 1 tablet (81 mg total) by mouth shells inspector before breakfast 4 aspirin-acetaminop hen-caffeine (EXCEDRIN MIGRAINE) [...] as needed for muscle spasms 30 tablet 09/07/[address] (CYMBALTA) 30 mg capsule [...] current use of insulin ([facility]) INJECT 48 UNITS UNDER THE SKIN DAILY 90 mL 1 05/07/2021 2 montelukast (SINGULAIR) 10 mg tablet TAKE 1 TABLET BY MOUTH EVERYDAY AT BEDTIME 90 tablet 1 08/13/2021 2 NovoLOG 100 unit/mL (3 mL) pen for injectionIndicatio ns:Controlled type 2 diabetes mellitus with diabetic polyneuropathy, without long-term current use of insulin ([facility]) INJECT 32 UNITS UNDER THE SKIN 3 [...] MEDICAL [facility]ENTER) TAKE 1 TABLET BY MOUTH EVERY DAY [...] Name Priority Date/Time Associated Diagnosis Comments XR HAND LEFT 3 OR MORE VIEWS Schedule Routine, Read Routine (OP Routine) 09/19/2021 3:50 PM PLATFORM SUPERVISOR Contusion of left ring finger without damage to nail, initial encounter documented in this encounter Results * XR Hand Left 3+ Vw (09/19/2021 3:50 PM PLATFORM SUPERVISOR) Anatomical Region Laterality Modality Upper Extremities, Hand Left Computed Radiography 09/20/2021 10:5 5 AM PLATFORM SUPERVISOR Narrative 09/20/2021 10:59 AM PLATFORM SUPERVISOR EXAM DESCRIPTION: ?? XR HAND LEFT 3 OR MORE VIEWS REASON FOR STUDY: ?? hand ring finger pip swelling ?? Swelling and pain in left 4th digit x a couple days ??NKI ??No surgeries ?? TECHNIQUE: ?? Frontal, lateral, and oblique ??radiographic views acquired of the left hand. COMPARISON: ?? None. FINDINGS: Please note portion of the 4th proximal phalanx is obscured by overlapping jewelry. ??Where adequately visualized there is no acute fracture or dislocation in the 4th digit. ??Moderate degenerative changes at the 4th PIP and DIP joints. ??Moderate to severe degenerative changes at the 1st carpometacarpal joint and multiple of the additional interphalangeal joints. ?? Soft tissue swelling at the 4th digit. ??Large portions of the wrist are obscured by overlapping watch. IMPRESSION: ?? 1. ?? Soft tissue swelling at the 4th digit without definite acute fracture or dislocation. ??Please note portions of the 4th proximal phalanx is obscured by overlapping jewelry. 2. ?? Degenerative changes as above. THIS IS AN ELECTRONICALLY VERIFIED FINAL REPORT 09/20/2021 10:59 AM - Electronically signed by ??Emil Stacy D.O. AP: MEGHANN D: ??09/20/2021 10:59 AM T: ??09/20/2021 10:59 AM Report ID: [id number] Reading Location: ??[id number] Procedure Note Emil Stacy DO - 09/20/2021 EXAM DESCRIPTION: XR HAND LEFT 3 OR MORE VIEWS REASON FOR STUDY: hand ring finger pip swelling Swelling and pain in left 4th digit x a couple days NKI No surgeries TECHNIQUE: Frontal, lateral, and oblique radiographic views acquired ofthe left hand. COMPARISON: None. FINDINGS: Please note portion of the 4th proximal phalanx is obscured by overlapping jewelry. Where adequately visualized there is no acute fracture or dislocation in the 4th digit. Moderate degenerative changes at the 4thPIP and DIP joints. Moderate to severe degenerative changes at the 1st carpometacarpal joint and multiple of the additional interphalangealjoints. Soft tissue swelling at the 4th digit. Large portions of the wrist are obscured by overlapping watch. IMPRESSION: 1. Soft tissue swelling at the 4th digit without definite acute fractureor dislocation. Please note portions of the 4th proximal phalanx is obscuredby overlapping jewelry. 2. Degenerative changes as above. THIS IS AN ELECTRONICALLY VERIFIED FINAL REPORT 09/20/2021 10:59 AM - Electronically signed by Emil Stacy D.O. AP: AP Report ID: [id number] Reading Location: [place] [address] [place] Lalito England MD IMG XR PROCEDURES Final R esult documented in this encounter Visit Diagnoses Diagnosis Contusion of left ring finger without damage to nail, initial encounter documented in this encounter Care Teams Facing Baster Relationship Specialty Start Date End Date Lalito England MD [address] [place] [address] PCP - General 08/03/19 documented as of this encounter
--- OUTSIDE RECORDS SUMMARY | 2024-07-11 22:39 | XMS_ITS | Encounter Summary ---
Author Organization [facility] Medical Group Address [address] [place] [address] Care Team Providers Care Patient Ombudsperson Name Role Phone Lalito England MD Primary Care Provider [phone] [phone] Encounter Details Date Type Department Care Team (Late st Contact Info) Description 07/19/2021 Telephone [facility] [address] [place] [address] Lalito England MD [address] [place] [address] Social History Tobacco Use Types [...] on file Legal Sex Female 11:52 PM BULLDOGGER Gender Identity Not on file Sexual Orientation Not on file documented as of this encounter Miscellaneous Notes * Telephone Encounter - Sandee Byers - 07/23/2021 6:39 PM CST done DOGGER * Telephone Encounter - Kira Claros RN - 07/19/2021 4:40 PM BULLDOGGER Referral placed DOGGER * Telephone Encounter - Sandee Byers - 07/19/2021 2:18 PM CST Pt is needing a referral for dr lala higuera pain management Dx back pain Please place DOGGER documented in this encounter Plan of Treatment Not on file documented as of this encounter Visit Diagnoses Not on filedocumented in this encounter Care Teams Patient Ombudsperson Relationship Specialty Start Date End Date Lalito England MD [address] [place] [address] PCP - General 08/03/19 documented as of this encounter
--- OUTSIDE RECORDS SUMMARY | 2024-07-11 22:39 | XMS_ITS | Encounter Summary ---
Author Organization [facility] Medical Group Address [address] [place] [address] Care Team Providers Care Chronic Specialist Name Role Phone Lalito England MD Primary Care Provider [phone] [phone] Encounter Details Date Type Department Care Team (Late st Contact Info) Description 07/09/2021 Telephone [facility] [address] [place] [address] Devi George MA Social History [...] on file Legal Sex Female 11:52 PM SQL DEVELOPER DBA Gender Identity Not on file Sexual Orientation Not on file documented as of this encounter Miscellaneous Notes * Telephone Encounter - Devi George MA - 07/09/2021 3:58 PM CST Pt aware. DEVELOPER DBA * Telephone Encounter - Lalito England MD - 07/09/2021 3:26 PM SQL DEVELOPER DBA Sent script for 100mg tid to the pharmacy. Thasnk. DEVELOPER DBA * Telephone Encounter - Devi George MA - 07/09/2021 3:08 PM CST Pt wanting to know if she can get a script for gabapentin 100 mg for 3x a day vs the 300 mg caps 4xdaily since she was advised to cut down on the amount she takes. Please advise or send to pharmacy if approved. Thanks DEVELOPER DBA documented in this encounter Plan of Treatment Not on file documented as of this encounter Visit Diagnoses Not on filedocumented in this encounter Care Teams Chronic Specialist Relationship Specialty Start Date End [place] [address] PCP - General 08/03/19 documented as of this encounter
--- OUTSIDE RECORDS SUMMARY | 2024-07-11 22:39 | XMS_ITS | Encounter Summary ---
Author Organization [facility] Healthcare Address [address] [place] [address] Care Team Providers Care Nut Steamer Name Role Phone Lalito England MD Primary Care Provider [phone] Reason for Referral * Diagnostic Imaging (Routine) - Closed Specialty Diagnoses / Procedures Referred By Contac t Referred To Contact Diagnoses Osteoporosis, post-menopausal Procedures Dexa Axial Skeleton Bone Density 1 Or 2 Site Lalito England MD [address] [place] [address] Phone: tel: fax: [address] [phone] Referral ID Status Reason Start Date Expiration Date Visits Re quested Visits Authorized [id number] Closed 05/18/2021 06/17/2022 1 1 DING SURVEYOR Reason for Visit * Diagnostic Imaging (Routine) - Closed Specialty Diagnoses / Procedures Referred By Contac t Referred To Contact Diagnoses Osteoporosis, post-menopausal Procedures Dexa Axial Skeleton Bone Density 1 Or 2 Site Lalito England MD [address] [place] [address] Phone: tel: fax: [address] [phone] Referral ID Status Reason Start Date Expiration Date Visits Re quested Visits Authorized [id number] Closed 05/18/2021 06/17/2022 1 1 Encounter Details Date Type Department Care Team (Latest Contact Info) Description 05/23/2021 9:16 AM BUILDING SURVEYOR - 05/23/2021 11:59 PM BUILDING SURVEYOR Hospital Encounter [facility] [address] [place] [address] Lalito England MD [address] [place] [address] Osteoporosis, post-menopausal Discharge Disposition: Discharge to home or self [...] on file Legal Sex Female 11:52 PM BUILDING SURVEYOR Gender Identity Not on file Sexual Orientation [...] 1 tablet (81 mg total) by mouth electronics mechanic before breakfast 4 aspirin-acetaminop hen-caffeine (EXCEDRIN MIGRAINE) [...] TWO TIMES A DAY 90 tablet 1 12/25/2020 1 fluticasone propionate (FLONASE) 50 mcg/actuation nasal sprayIndications:S [...] EVERY DAY WITH BREAKFAST 90 tablet 1 12/18/2020 1 montelukast (SINGULAIR) 10 mg tablet take [...] 1 needle as directed 300 each 3 01/01/2021 1 simvastatin (ZOCOR) 40 mg tabletIndications: Controlled type [...] SITES Schedule Routine, Read Routine (OP Routine) 05/23/2021 9:27 AM BUILDING SURVEYOR Osteoporosis, post-menopausal documented in this encounter Results * Dexa Axial Skeleton Bone Density 1 Or 2 Site (05/23/2021 9:27 AM BUILDING SURVEYOR) Anatomical Region Laterality Modality Body N/A Other 05/23/2021 9:32 AM BUILDING SURVEYOR Narrative 05/23/2021 9:33 AM BUILDING SURVEYOR EXAM DESCRIPTION: ?? DEXA AXIAL SKELETON BONE DENSITY 1 OR MORE SITES REASON FOR STUDY: ?71 y/o ??year old ??F with given history of screening. Tin Stacker/Model: ?? [employer]oSovicell Discovery SL (S/N [id number]) CLINICAL INFORMATION: ??Current height: ??66 inches ? Maximum height: None available Weight: 245 pounds Risk factors: None COMPARISON: ??None available. FINDINGS: AP LUMBAR SPINE L1-L4: Total BMD is ??1.368 g/cm2 T-score is 2.9 Measured BMD is thought to be spuriously elevated due to facet arthropathy. LEFT HIP: Total BMD is 0.857 g/cm2 T-score is -0.7 Femoral neck BMD is 0.545 g/cm2 T-score is -2.7 IMPRESSION: ?? Osteoporosis. FRAX not reported due to T-score of the femoral neck being below -2.5 REFERENCE: ??Bone mineral density: ? Normal (T-score above or = -1.0) ? Low bone mass ??(T-score between -1.0 and -2.5) replaces the previously used term osteopenia ? Osteoporosis (T-score = or below -2.5) Medical evaluation for secondary causes of low [...] greater than 3% should be considered for treatment. For further information, including treatment recommendations, please refer to the 2013 ISCD Official Positions (http://www.iscd.org) and the NOF's Clinician's Guide to Prevention and Treatment of Osteoporosis (http://www.nof.org/professionals/clinical-guidelines) THIS IS AN ELECTRONICALLY VERIFIED FINAL REPORT 05/23/2021 9:33 AM - Electronically signed by Maryann Douglas M.D. TB: TB D: ??05/23/2021 9:33 AM T: ??05/23/2021 9:33 AM Report ID: [id number] Reading Location: ??[id number] Procedure Note Maryann Douglas MD - 05/23/2021 EXAM DESCRIPTION: DEXA AXIAL SKELETON BONE DENSITY 1 OR MORE SITES REASON FOR STUDY: 71 y/o year old F with given history ofscreening. Tin Stacker/Model: [employer]ica (S/N [id number]) CLINICAL INFORMATION: Current height: 66 inches Maximum height: None available Weight: 245 pounds Risk factors: None COMPARISON: None available. FINDINGS: AP LUMBAR SPINE L1-L4: Total BMD is 1.368 g/cm2 T-score is 2.9 Measured BMD is thought to be spuriously elevated due to facetarthropathy. LEFT HIP: Total BMD is 0.857 g/cm2 T-score is -0.7 Femoral neck BMD is 0.545 g/cm2 T-score is -2.7 IMPRESSION: Osteoporosis. FRAX not reported due to T-score of the femoral neck being below -2.5 REFERENCE: Bone mineral density: Normal (T-score above or = -1.0) Low bone mass (T-score between -1.0 and -2.5) replaces thepreviously used term osteopenia Osteoporosis (T-score = or below -2.5) Medical evaluation for secondary causes of low [...] or greaterthan 3% should be considered for treatment. For further information, including treatment recommendations, please referto the 2013 ISCD Official Positions (http://www.iscd.org) and the NOF's Clinician's Guide to Prevention and Treatment of Osteoporosis (http://www.nof.org/professionals/clinical-guidelines) THIS IS AN ELECTRONICALLY VERIFIED FINAL REPORT 05/23/2021 9:33 AM - Electronically signed by Maryann Douglas M.D. TB: TB Report ID: [id number] Reading Location: [facility] Lalito England MD IMG DXA PROCEDURES Final Result documented in this encounter Visit Diagnoses Diagnosis Osteoporosis, post-menopausal Senile osteoporosis documented in this encounter Care Teams Nut Steamer Relationship Specialty Start Date End Date Lalito England MD [address] [place] [address] PCP - General 08/03/19 documented as of this encounter
--- OUTSIDE RECORDS SUMMARY | 2024-07-11 22:39 | XMS_ITS | Encounter Summary ---
Author Organization [facility] Healthcare Address [address] [place] [address] Care Team Providers Care Investment Representative Name Role Phone Lalito England MD Primary Care Provider [phone] Chante Leon [facility] Unavailable [phone] Kassi Fontaine RN Unavailable [phone] Parvin Whelan RN Unavailable [phone] Reason for Visit * Reason Onset Date Comments Scheduling Appointments 05/22/2021 REMINDER CALL FOR DEXA. NO ANSWER. Encounter Details Date Type Department Care Team (Late st Contact Info) Description 05/22/2021 Telephone [facility] [address] [place] [address] Swetha Adame, Scheduling Appointments (REMINDER CALL FOR DEXA. NO ANSWER. 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 Gender Identity Not on file Sexual Orientation Not on file documented as of this encounter Plan of Treatment Not on file documented as of this encounter Visit Diagnoses Not on filedocumented in this encounter Care Teams Investment Representative Relationship Specialty Start Date End Date Lalito England MD [address] [place] [address] PCP - General 08/03/19 Chante Leon, [address] [place], [place] [id number] Pharmacist Pharmacy 01/04/22 01/21/22 Kassi Fontaine RN [address] [place] [address] [address] [place] [address] Assistant Loan Processor 07/16/22 08/11/22 Parvin Whelan, [place] [address] [place] [address] [address] [place] [address] Assistant Loan Processor 12/19/23 01/18/24 documented as of this encounter
--- OUTSIDE RECORDS SUMMARY | 2024-07-11 22:39 | XMS_ITS | Encounter Summary ---
Author Organization [facility] Medical Group Address 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
--- OUTSIDE RECORDS SUMMARY | 2024-07-11 22:39 | XMS_ITS | Encounter Summary ---
Author Organization [facility] Medical Group Address 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 MOTIVE INSPECTOR * Telephone Encounter - Kira Claros RN - 09/21/2021 5:14 PM LOCOMOTIVE INSPECTOR ----- Message from Lalito England MD sent at 09/20/2021 12:03 PM LOCOMOTIVE INSPECTOR ----- No fracutre. Monitor response to steroid and swelling. Lalito Max MOTIVE INSPECTOR documented in this encounter Plan of Treatment Not on file documented as of this encounter Visit Diagnoses Not on filedocumented in this encounter Care Teams Log Hooker Relationship Specialty Start Date End Date Lalito England MD [address] [place] [address] PCP - General 08/03/19 documented as of this encounter
--- OUTSIDE RECORDS SUMMARY | 2024-07-11 22:39 | XMS_ITS | Encounter Summary ---
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 Gender Identity Not on file Sexual Orientation Not on file documented as of this encounter Ordered Prescriptions Prescription Sig Dispense Quantity Refills Last Filled Start Date End Date glipiZIDE (GLUCOTROL) 5 mg tabletIndications: type 2 diabetes mellitus Take 0.5 tablets (2.5 mg total) by mouth daily as needed (with largest meal of the day) 45 tablet 1 07/05/2021 3 documented in this encounter Plan of Treatment Not on file documented as of this encounter Visit Diagnoses Not on filedocumented in this encounter Discontinued Medications Medication Sig Discontinue Reason Start Date End Da te metFORMIN (GLUCOPHAGE) 500 mg tablet TAKE 1 TABLET BY MOUTH EVERY DAY WITH BREAKFAST Therapy completed 06/18/2021 07/05/2021 documented as of this encounter Care Teams Recycling Center Operator Relationship Specialty Start Date End Date Lalito England MD [address] [place] [address] PCP - General 08/03/19 documented as of this encounter"
--- OUTSIDE RECORDS SUMMARY | 2024-07-11 22:39 | XMS_ITS | Encounter Summary ---
Author Organization [facility] Address [address] [address] Care Team Providers Care [employer] Consultant Name Role Phone Lalito England MD Primary Care Provider [phone] Reason for Referral * MRI/CAT/PET Scan (Routine) - Closed Specialty Diagnoses / Procedures Referred By Contac t Referred To Contact Radiology Diagnoses Lumbar radiculopathy Procedures CT Lumbar Spine WO Contrast Lalito England MD [address] [place] [address] Phone: tel: fax: [address] [phone] Referral ID Status Reason Start Date Expiration Date Visits Re quested Visits Authorized [id number] Closed 09/04/2021 12/03/2021 1 1 USION MACHINE OPERATOR * MRI/CAT/PET Scan (Routine) - Closed Specialty Diagnoses / Procedures Referred By Contac t Referred To Contact Radiology Diagnoses Cervical radiculopathy Procedures CT Cervical Spine WO Contrast Lalito England MD [address] [place] [address] Phone: tel: fax: [address] [phone] Referral ID Status Reason Start Date Expiration Date Visits Re quested Visits Authorized [id number] Closed 09/04/2021 12/03/2021 1 1 USION MACHINE OPERATOR Reason for Visit * Reason Comments Numbness Pt states she has guidry d some numbness in her R hand and at times get some numbness in her R leg. Pt notes some decline in edger automatic in R hand. Back Pain Pt states she has be en having some lower R sided back pain since around the last time she was in the office. Vertigo Pt states that at ti mes, when she looks up and then looks straight again, she gets dizzy. Encounter Details Date Type Department Care Team (Late st Contact Info) Description 08/22/2021 3:15 PM EXTRUSION MACHINE OPERATOR Office Visit [facility] [address] [place] [address] Lalito England MD [address] [place] [address] Type 2 diabetes mellitus with hyperlipidemia ([facility]/HCC) ([facility]) (Primary Dx); Cervical radiculopathy; Lumbar radiculopathy; BMI 39.0-39.9,adult; CKD (chronic kidney disease) stage 4, GFR 15-29 ml/min (CMS/HCC) ([facility]); Sarcoidosis of lung ([facility]/HCC) ([facility]); Controlled type 2 diabetes mellitus with stage 4 chronic kidney disease, without long-term current use of insulin ([facility]) ([facility]); Severe obesity (BMI 35.0-39.9) with comorbidity ([facility]) ([facility]) Social History Tobacco Use Types [...] PHQ-2 Answer Date Recorded PHQ-2 Total Score 0 08/22/2021 Comments No Sex and Gender Information Value Date Recorded Sex Assigned at Not on file Legal Sex Female 11:52 PM EXTRUSION MACHINE OPERATOR Gender Identity Not on file Sexual Orientation Not on file documented as of this encounter Last Filed Vital Signs Vital Sign Reading Time Taken Comments Blood Pressure 160/42 08/22/2021 3:18 PM EXTRUSION MACHINE OPERATOR Pulse 88 08/22/2021 3:18 PM EXTRUSION MACHINE OPERATOR Temperature 36.8 ??C (98.2 ??F) 08/22/2021 3:18 PM CS T Respiratory Rate 16 08/22/2021 3:18 PM EXTRUSION MACHINE OPERATOR Oxygen Saturation 98% 08/22/2021 3:18 PM EXTRUSION MACHINE OPERATOR Inhaled Oxygen Concentration - - Weight 110.3 kg (243 lb 3.2 oz) 08/22/2021 3:18 PM EXTRUSION MACHINE OPERATOR Height 167.6 cm (5' 6 ) 08/22/2021 3:18 PM EXTRUSION MACHINE OPERATOR Body Mass Index 39.25 08/22/2021 3:18 PM EXTRUSION MACHINE OPERATOR documented in this encounter Progress Notes * Lalito England MD - 08/22/2021 3:15 PM CST Images from the original note were not included. [facility] MarshaGisselle Ly Chief Complaint. Chief Complaint Patient presents with ??? Numbness Pt states she has had some numbness in her R hand and at times get some numbness in her R leg. Pt notes some decline in edger automatic in R hand. ??? Back Pain Pt states she has been having some lower R sided back pain since around the last time she was in the office. ??? Vertigo Pt states that at times, when she looks up and then looks straight again, she gets dizzy. HPI. Patient is a 71 y.o. female Ms. Ly presents to clinic for f/u. PMHx sig for prior surgery to both cervical and lumbar spine and now with recurrent numbness and tingling in the right upper extrmeity and right lower extrmeiety.No open wounds/sores. Patient ambulating iwht assistance of a cane. mehdi continues to follow with nephrology and has noted an increase in neuropathic pain since kidney mediated reduction in gabapentin. Increased paresthesia and lower extremity burniing. Neuropathy The onset of symptoms is gradual. It is located in the RLE and RUE region. The distribution is worse on right. The patient experiences pain all day. Severity of pain: moderate. There is no allodynia.There is no hyperalgesia. Symptoms do not include alternating diarrhea and constipation, blurred vision, diarrhea or eye dryness. Back Pain This is a chronic problem. The current episode started more than 1 year ago. The problem has been waxing and waning since onset. The pain is present in the lumbar spine, gluteal and sacro-iliac. The quality of the pain is described as aching, cramping and shooting. The pain radiates to the right thigh and right knee. The pain is moderate. The symptoms are aggravated by bending and lying down. Stiffness is present all day. Associated symptoms include numbness, paresthesias and tingling. Pertinent negatives include no abdominal pain, chest pain, dysuria, fever, headaches, leg pain or weakness. The treatment provided moderate relief. Past Medical History: Diagnosis Date ??? Benign hypertension with CKD (chronic kidney disease) stage III (HCC) ??? Gastroesophageal reflux disease GERD ??? HX OTHER MEDICAL PMO ??? HX OTHER MEDICAL MUSEUM OR ZOO DIRECTOR ??? HX OTHER MEDICAL [facility] OA ??? HX OTHER MEDICAL 2008 Discectomy, cervical ??? HX OTHER MEDICAL Fall ??? HX OTHER MEDICAL Left proximal femoral Gamma Nail fixation proximal; Comments: [facility] 07/25/2015 - ??? HX OTHER MEDICAL RTKR 2001.; Comments: [facility] 07/25/2015 - ??? HX OTHER MEDICAL LTKR 2006.; Comments: [facility] 07/25/2015 - ??? HX OTHER MEDICAL Back surgery 2006.; Comments: [facility] 07/25/2015 - ??? HX OTHER MEDICAL Cervical disc surg. 2007.; Comments: [facility] 07/25/2015 - ??? HX OTHER MEDICAL Breast reduction 2009.; Comments: [facility] 07/25/2015 - ??? HX OTHER MEDICAL left hip and leg surgery ??? HX OTHER MEDICAL conversion of previous hip arthroplasty left hip; Comments: [facility] unit 02/06 - 02/17/16 for [...] tablet aspirin 81 mg enteric coated tablet ipnfvnd-pofyiaytoxjbi-zqhmyhox (EXCEDRIN MIGRAINE) 250-250-65 mg per tablet blood glucose diagnostic (Contour Next Test Strips) strip blood-glucose meter (CONTOUR NEXT USB METER) misc calcium carbonate-vitamin D3 500 mg(1,250mg) -400 unit tablet cloNIDine (CATAPRES) 0.1 mg tablet fluticasone propionate (FLONASE) 50 mcg/actuation [...] 3/16 needle simvastatin (ZOCOR) 40 mg tablet tiZANidine (ZANAFLEX) 2 mg tablet traMADol (ULTRAM) 50 mg tablet Allergies Allergen Reactions ??? Hydrocodone Other [...] and urgency. Musculoskeletal: Positive for arthralgias and back pain. Negative for myalgias and neck pain. Skin: Negative for rash. Neurological: Positive for tingling, numbness and paresthesias. Negative for dizziness, tremors, weakness, light-headedness and headaches. Hematological: Negative for adenopathy. Psychiatric/Behavioral: Negative for sleep disturbance and suicidal ideas. The patient is not nervous/anxious. BP (!) 160/42 (BP Location: Left arm, Patient Position: Sitting) Pulse 88 Temp 36.8 ??C (98.2 ??F) (Oral) Resp 16 Ht 167.6 cm (5' 6 ) Wt 110.3 kg (243 lb 3.2 oz) SpO2 98% BMI 39.25 kg/m?? Physical Exam: Physical Exam Vitals reviewed. [...] visit: Type 2 diabetes mellitus with hyperlipidemia (CMS/HCC) ([facility]) (Primary) - POCT lipid panel Secondary prevnetion. WIll continue to follow and monitor response. Cervical radiculopathy - CT Cervical Spine WO Contrast; Future Imaging prior to pain managemetn consultation. Lumbar radiculopathy - CT Lumbar Spine WO Contrast; Future Imaging prior to pain management consultation. Morbid (severe) obesity due to excess calories ([facility]) Reviewed healthy fooc hoice s and will continue to follwo CKD (chronic kidney disease) stage 4, GFR 15-29 ml/min (CMS/HCC) ([facility]) Reviewed helathy food choices and will continue to monitor response. Sarcoidosis of lung (CMS/HCC) ([facility]) Controlled type 2 diabetes mellitus with stage 4 chronic kidney disease, without long-term current use of insulin ([facility]) ([facility]) Continue f/u with nephrology. BMI Follow-up includes: nutrition counseling. Body mass index is 39.25 kg/m??. Lalito England MD USION MACHINE OPERATOR documented in this encounter Plan of Treatment Not on file documented as of this encounter Procedures Procedure Name Priority Date/Time Associated Diagnosis Comments POCT LIPID PANEL Routine 08/22/2021 3:41 PM EXTRUSION MACHINE OPERATOR Type 2 diabetes mellitus with hyperlipidemia (CMS/HCC) ([facility]) documented in this encounter Results * CT Lumbar Spine WO Contrast (09/04/2021 4:54 PM EXTRUSION MACHINE OPERATOR) Anatomical Region Laterality Modality Spine N/A Computed Tomogra phy 09/05/2021 1:26 PM EXTRUSION MACHINE OPERATOR Narrative 09/05/2021 1:39 PM EXTRUSION MACHINE OPERATOR EXAM DESCRIPTION: ?? CT LUMBAR SPINE WO CONTRAST REASON FOR STUDY: ?? lumbar radiculopathy ?? Lumbar spine pain for 1 year getting worse. Hx of lumbar decompression. ?? TECHNIQUE: Axial images acquired through the lumbar spine without intravenous contrast. ??Reconstructed coronal and sagittal MPR images reviewed. ??All images stored on PACS. Automated exposure control was used as a dose optimization technique for this examination. COMPARISON: ?? Lumbar spine MRI dated 01/26/2018. FINDINGS: SEGMENTATION: ?? 5 cie-rej-btjzpel lumbar type vertebral bodies. ALIGNMENT: ?? There is mild dextroconvex curvature. ??Grade 1 anterolisthesis of L4 on L5 and grade 1 retrolisthesis of L5 on S1. VERTEBRAE: ?? The osseous structures are diffusely demineralized and limits the evaluation for a subtle nondisplaced fracture. ??Severe endplate degenerative changes with marginal spur formation from L2-L3 through L4-L5 and to lesser extent L5-S1 and L1-L2. ??Multilevel moderate to marked facet arthropathy. DISC HEIGHT: ?? Severe intervertebral disc height loss with vacuum disc phenomenon at L2-L3 through L5-S1 and to lesser extent L5-S1. ??Mild L1-L2 intervertebral disc height loss. HARDWARE: ?? None in the spine. INDIVIDUAL DISC LEVELS: ?? Suboptimal evaluation by unenhanced CT technique. L1-L2: Disc bulge with marginal spur formation. ??Thickened ligamentum flavum and facet arthropathy. ??Mild osseous spinal canal stenosis. ??No significant osseous neural foraminal narrowing. L2-L3: Disc bulge and a superimposed central through right neural foraminal disc protrusion with marginal spur formation. ??Thickened ligamentum flavum and facet arthropathy. ??Moderate to severe osseous spinal canal stenosis. ?? Moderate right and mild left osseous neural foraminal narrowing. L3-L4: Surgical level. ??Left laminotomy defect. ??There is a disc bulge with marginal spur formation. ??Remaining thickened ligamentum flavum and facet arthropathy. ??Moderate osseous spinal canal stenosis. ??There is right greater than left lateral recess narrowing. ??Moderate bilateral osseous neural foraminal narrowing. L4-L5: Surgical level. ??Left laminectomy defect. ??There is anterolisthesis of L4 on L5 with unroofing of the disc. ??Marginal spur formation with remaining thickened ligamentum flavum and facet arthropathy. ??Severe osseous spinal canal stenosis. ??There is lateral recess narrowing on both sides. ??Severe bilateral neural foraminal narrowing. L5-S1: Question a a remote right laminotomy or developmental/chronic posttraumatic change. ??Disc bulge and a superimposed central disc protrusion. ?? Marginal spur formation and bilateral facet arthropathy. ??Epidural lipomatosis. ??Mild spinal canal stenosis. ??Lateral recess narrowing on both sides. ??Wcfh-ej-osnrwzvj right and mild left neural foraminal narrowing. SOFT TISSUES: ?? Calcified plaque at the abdominal aorta and iliac vasculature. Nonspecific 1 cm right retroperitoneal lymph node just superior to the right kidney. OTHER: ?? Degenerative changes at the imaged portions of the bilateral sacroiliac joints. IMPRESSION: ?? 1. ?? Multilevel moderate to advanced lumbar spondylotic changes as described. ?? Severe spinal canal narrowing at L4-L5 and to lesser extent L2-L3 and L3-L4. 2. ?? Varying degrees of bilateral neural foraminal narrowing ranging up to severe. 3. ?? Remote postoperative changes and additional findings as discussed. 4. ?? Nonspecific right retroperitoneal 1 cm lymph node. THIS IS AN ELECTRONICALLY VERIFIED FINAL REPORT 09/05/2021 1:39 PM - Electronically signed by ??Emil Stacy D.O. AP: AP D: ??09/05/2021 1:39 PM T: ??09/05/2021 1:39 PM Report ID: [id number] Reading Location: ??[id number] Procedure Note Emil Stacy DO - 09/05/2021 EXAM DESCRIPTION: CT LUMBAR SPINE WO CONTRAST REASON FOR STUDY: lumbar radiculopathy Lumbar spine pain for 1 year getting worse. Hx of lumbar decompression. TECHNIQUE: Axial images acquired through the lumbar spine withoutintravenous contrast. Reconstructed coronal and sagittal MPR images reviewed. Allimages stored on PACS. Automated exposure control was used as a dose optimization technique forthis examination. COMPARISON: Lumbar spine MRI dated 01/26/2018. FINDINGS: SEGMENTATION: 5 hdl-dvq-tfexlrv lumbar type vertebral bodies. ALIGNMENT: There is mild dextroconvex curvature. Grade 1anterolisthesis of L4 on L5 and grade 1 retrolisthesis of L5 on S1. VERTEBRAE: The osseous structures are diffusely demineralized and limitsthe evaluation for a subtle nondisplaced fracture. Severe endplatedegenerative changes with marginal spur formation from L2-L3 through L4-L5 and tolesser extent L5-S1 and L1-L2. Multilevel moderate to marked facet arthropathy. DISC HEIGHT: Severe intervertebral disc height loss with vacuum disc phenomenon at L2-L3 through L5-S1 and to lesser extent L5-S1. Mild L1-L2 intervertebral disc height loss. HARDWARE: None in the spine. INDIVIDUAL DISC LEVELS: Suboptimal evaluation by unenhanced CTtechnique. L1-L2: Disc bulge with marginal spur formation. Thickened ligamentumflavum and facet arthropathy. Mild osseous spinal canal stenosis. Nosignificant osseous neural foraminal narrowing. L2-L3: Disc bulge and a superimposed central through right neuralforaminal disc protrusion with marginal spur formation. Thickened ligamentum flavumand facet arthropathy. Moderate to severe osseous spinal canal stenosis. Moderate right and mild left osseous neural foraminal narrowing. L3-L4: Surgical level. Left laminotomy defect. There is a disc bulgewith marginal spur formation. Remaining thickened ligamentum flavum and facet arthropathy. Moderate osseous spinal canal stenosis. There is rightgreater than left lateral recess narrowing. Moderate bilateral osseous neural foraminal narrowing. L4-L5: Surgical level. Left laminectomy defect. There is anterolisthesisof L4 on L5 with unroofing of the disc. Marginal spur formation withremaining thickened ligamentum flavum and facet arthropathy. Severe osseous spinal canal stenosis. There is lateral recess narrowing on both sides. Severe bilateral neural foraminal narrowing. L5-S1: Question a a remote right laminotomy or developmental/chronic posttraumatic change. Disc bulge and a superimposed central discprotrusion. Marginal spur formation and bilateral facet arthropathy. Epidural lipomatosis. Mild spinal canal stenosis. Lateral recess narrowing onboth sides. Jzvo-ia-hmvsdhlu right and mild left neural foraminal narrowing. SOFT TISSUES: Calcified plaque at the abdominal aorta and iliacvasculature. Nonspecific 1 cm right retroperitoneal lymph node just superior to theright kidney. OTHER: Degenerative changes at the imaged portions of the bilateral sacroiliac joints. IMPRESSION: 1. Multilevel moderate to advanced lumbar spondylotic changes asdescribed. Severe spinal canal narrowing at L4-L5 and to lesser extent L2-L3 andL3-L4. 2. Varying degrees of bilateral neural foraminal narrowing ranging up to severe. 3. Remote postoperative changes and additional findings as discussed. 4. Nonspecific right retroperitoneal 1 cm lymph node. THIS IS AN ELECTRONICALLY VERIFIED FINAL REPORT 09/05/2021 1:39 PM - Electronically signed by Emil Stacy D.O. AP: AP Report ID: [id number] Reading Location: [place] [address] us Lalito England MD IMG CT PROCEDURES Final R esult * CT Cervical Spine WO Contrast (09/04/2021 4:47 PM EXTRUSION MACHINE OPERATOR) Anatomical Region Laterality Modality Spine N/A Computed Tomogra phy 09/05/2021 1:14 PM EXTRUSION MACHINE OPERATOR Narrative 09/05/2021 1:26 PM EXTRUSION MACHINE OPERATOR EXAM DESCRIPTION: ?? CT CERVICAL SPINE WO CONTRAST REASON FOR STUDY: ?? Cervical radiculopathy, prior cervical surgery ?? Neck pain, lower c-spine for about 1 year. Pt states she has had 4 discs in her neck replaced in the past. ? TECHNIQUE: Axial images through the cervical spine with sagittal and coronal reformatted images. Automated exposure control was used as a dose optimization technique for this examination. COMPARISON: ?? None available. FINDINGS: ALIGNMENT: ?? Reversal of the normal cervical lordosis. ??There is grade 1 anterolisthesis of C2 on C3. VERTEBRAE: ?? Osseous structures are diffusely demineralized and limits the evaluation for a subtle nondisplaced fracture. ??Moderate endplate degenerative changes and marginal spur formation at C7-T1 and to lesser extent remainder of the non operative levels. ??There is diffuse facet arthropathy including at C2-C3 on both sides and on the right at C7-T1. ??Partial osseous fusion across the left C3-C4 facet joint. DISCS: ?? Moderate to severe intervertebral disc height loss at C7-T1 and to lesser extent C2-C3. HARDWARE: ?? Mature osseous fusion across the C3-C4 through C6-C7 disc spaces. INDIVIDUAL DISC LEVELS: ?? Suboptimal evaluated by unenhanced CT technique. C2-C3: Anterolisthesis of C2 on C3 with unroofing the disc. ??Thickened ligamentum flavum. ??No significant osseous spinal canal stenosis. ?? Uncovertebral spurring and facet arthropathy with moderate osseous neural foraminal narrowing. C3-C4: Surgical level. ??There is osteophytic ridging without significant osseous spinal canal stenosis. ??Uncovertebral spurring and facet arthropathy with mild right and moderate left osseous neural foraminal narrowing. C4-C5: Surgical level. ??There is osteophytic ridging without significant osseous spinal canal stenosis. ??Uncovertebral spurring and facet arthropathy with moderate left and no significant right osseous neural foraminal narrowing. C5-C6: Surgical level. ??There is osteophytic ridging and thickened ligamentum flavum. ??Uwaf-gb-dujjuped osseous spinal canal stenosis. ??Uncovertebral spurring and facet arthropathy with moderate bilateral osseous neural foraminal narrowing. C6-C7: Surgical level. ??Osteophytic ridging and thickened ligamentum flavum. ?? Fanx-qt-lvofswsz osseous spinal canal stenosis. ??Uncovertebral spurring and facet arthropathy with severe right and mild left osseous neural foraminal narrowing. C7-T1: Evaluation limited by patient's body habitus and lack of contrast. ?? Posterior disc osteophyte complex with thickened ligamentum flavum. ??Suspect spinal canal stenosis. ??Uncovertebral spurring and facet arthropathy with mild left and no significant right osseous neural foraminal narrowing. UPPER THORACIC: ?? Incompletely imaged. No high-grade osseous spinal canal stenosis. LUNG APICES: ?? No focal pneumonic consolidation. NECK SOFT TISSUES: ?? Calcified plaque at the carotid vasculature. IMPRESSION: ?? 1. ?? Mature osseous fusion from C3-C4 through C6-C7. 2. ?? Moderate to advanced degenerative changes in the cervical spine as above. 3. ?? Prior imaging studies are not available for comparison. THIS IS AN ELECTRONICALLY VERIFIED FINAL REPORT 09/05/2021 1:26 PM - Electronically signed by ??Emil Stacy D.O. AP: AP D: ??09/05/2021 1:26 PM T: ??09/05/2021 1:26 PM Report ID: [id number] Reading Location: ??[id number] Procedure Note Emil Stacy DO - 09/05/2021 EXAM DESCRIPTION: CT CERVICAL SPINE WO CONTRAST REASON FOR STUDY: Cervical radiculopathy, prior cervical surgery Neck pain, lower c-spine for about 1 year. Pt states she has had 4 discsin her neck replaced in the past. TECHNIQUE: Axial images through the cervical spine with sagittal andcoronal reformatted images. Automated exposure control was used as a doseoptimization technique for this examination. COMPARISON: None available. FINDINGS: ALIGNMENT: Reversal of the normal cervical lordosis. There is grade 1 anterolisthesis of C2 on C3. VERTEBRAE: Osseous structures are diffusely demineralized and limits the evaluation for a subtle nondisplaced fracture. Moderate endplatedegenerative changes and marginal spur formation at C7-T1 and to lesser extentremainder of the non operative levels. There is diffuse facet arthropathy including at C2-C3 on both sides and on the right at C7-T1. Partial osseous fusionacross the left C3-C4 facet joint. DISCS: Moderate to severe intervertebral disc height loss at C7-T1 andto lesser extent C2-C3. HARDWARE: Mature osseous fusion across the C3-C4 through C6-C7 discspaces. INDIVIDUAL DISC LEVELS: Suboptimal evaluated by unenhanced CT technique. C2-C3: Anterolisthesis of C2 on C3 with unroofing the disc. Thickened ligamentum flavum. No significant osseous spinal canal stenosis. Uncovertebral spurring and facet arthropathy with moderate osseous neural foraminal narrowing. C3-C4: Surgical level. There is osteophytic ridging without significant osseous spinal canal stenosis. Uncovertebral spurring and facetarthropathy with mild right and moderate left osseous neural foraminal narrowing. C4-C5: Surgical level. There is osteophytic ridging without significant osseous spinal canal stenosis. Uncovertebral spurring and facetarthropathy with moderate left and no significant right osseous neural foraminalnarrowing. C5-C6: Surgical level. There is osteophytic ridging and thickenedligamentum flavum. Rlvh-my-vatilywu osseous spinal canal stenosis. Uncovertebral spurring and facet arthropathy with moderate bilateral osseous neural foraminal narrowing. C6-C7: Surgical level. Osteophytic ridging and thickened ligamentumflavum. Ecga-nl-wlicwjke osseous spinal canal stenosis. Uncovertebral spurringand facet arthropathy with severe right and mild left osseous neural foraminal narrowing. C7-T1: Evaluation limited by patient's body habitus and lack of contrast. Posterior disc osteophyte complex with thickened ligamentum flavum.Suspect spinal canal stenosis. Uncovertebral spurring and facet arthropathy withmild left and no significant right osseous neural foraminal narrowing. UPPER THORACIC: Incompletely imaged. No high-grade osseous spinal canal stenosis. LUNG APICES: No focal pneumonic consolidation. NECK SOFT TISSUES: Calcified plaque at the carotid vasculature. IMPRESSION: 1. Mature osseous fusion from C3-C4 through C6-C7. 2. Moderate to advanced degenerative changes in the cervical spine asabove. 3. Prior imaging studies are not available for comparison. THIS IS AN ELECTRONICALLY VERIFIED FINAL REPORT 09/05/2021 1:26 PM - Electronically signed by Emil Stacy D.O. AP: AP Report ID: [id number] Reading Location: [place] [address] Lalito England MD IMG CT PROCEDURES Final R esult * POCT lipid panel (08/22/2021 3:41 PM EXTRUSION MACHINE OPERATOR) Cholesterol, POC 128 mg/dL Comment:GLU: 243 HDL, POC 38 mg/dL Triglycerides, POC 165 mg/dL LDL Cholesterol POC 57 mg/dL Chol/HDL Ratio, POC 3.4 Non-HDL Cholesterol, POC 90 mg/dL Cholesterol Total, POC 128 mg/dL Capillary blood 08/22/2021 3 :41 PM EXTRUSION MACHINE OPERATOR Lalito England MD POINT OF CARE TEST ORDERA BLES Final Result documented in this encounter Visit Diagnoses Diagnosis Type 2 diabetes mellitus with hyperlipidemia (HCC)- Primary Cervical radiculopathy Brachial neuritis or radiculitis nos Lumbar radiculopathy Thoracic or lumbosacral neuritis or radiculitis, unspecified BMI 39.0-39.9,adult CKD (chronic kidney disease) stage 4, GFR 15-29 ml/min ([facility]) (HCC) Chronic kidney disease, Stage IV (severe) Sarcoidosis of lung (HCC) Sarcoidosis 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
--- OUTSIDE RECORDS SUMMARY | 2024-07-11 22:39 | XMS_ITS | Encounter Summary ---
Author Organization [facility] Medical [facility] Address [address] [facility] [address] [place] [id number] Care Team Providers Care Chaser Tar Name Role Phone Lalito England MD Primary Care Provider [phone] Reason for Referral * Consultation (Routine) - Closed Specialty Diagnoses / Procedures Referred By Contac t Referred To Contact Pain Management Diagnoses Sacroiliac joint dysfunction Lalito England MD [address] [place] [address] Phone: tel: fax: Shellie Caruso MD [address] [place] [address] Phone: tel: fax: Referral ID Status Reason Start Date Expiration Date V isits Requested Visits Authorized [id number] Closed Specialty Services Required 07/31/2021 08/30/2022 1 1 Question Answer Please select the performing region: External Order [171] To provider: SHELLIE CARUSO [[id number]] # of visits: 1 Comments dx Sacroiliac joint disease (M53.3) 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 Encounter Details Date Type Department Care Team (Late st Contact Info) Description 07/31/2021 Orders Only [facility] [address] [place] [address] Lalito England MD [address] [facility] [address] Sacroiliac joint dysfunction (Primary Dx) Social History Tobacco Use Types [...] on file 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 Gender Identity Not on file Sexual Orientation Not on file documented as of this encounter Plan of Treatment Scheduled Referrals Name Type Priority Associated Diagnoses Orde r Schedule Ambulatory referral to Pain Management Outpatient Referral Routine Sacroiliac joint dysfunction Expected: 07/31/2021 (Approximate), Expires: 07/31/2022 documented as of this encounter Visit Diagnoses Diagnosis Sacroiliac joint dysfunction- Primary Nonallopathic lesion of sacral region, not elsewhere classified documented in this encounter Care Teams Chaser Tar Relationship Specialty Start Date End Date Lalito England MD [address] [place] [address] PCP - General 08/03/19 documented as of this encounter
--- OUTSIDE RECORDS SUMMARY | 2024-07-11 22:39 | XMS_ITS | Encounter Summary ---
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 Gender Identity Not on file Sexual Orientation Not on file documented as of this encounter Miscellaneous Notes * Telephone Encounter - Sandee Byers - 07/31/2021 11:51 AM CST done S CLERK * Telephone Encounter - Kira Claros RN - 07/31/2021 9:10 AM SALES CLERK Referral placed S CLERK * Telephone Encounter - Sandee Byers - 07/30/2021 2:[address] referral for dr lala higuera dx Sacroiliac joint disease (M53.3) Also for fadia pulmonology aisha Dx sarcoidosis of lung /yearly S CLERK documented in this encounter Plan of Treatment Not on file documented as of this encounter Visit Diagnoses Not on filedocumented in this encounter Care Teams Evening Sitter Relationship Specialty Start Date End Date Lalito England MD [address] [place] [address] PCP - General 08/03/19 documented as of this encounter
--- OUTSIDE RECORDS SUMMARY | 2024-07-11 22:39 | XMS_ITS | Encounter Summary ---
Author Organization 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 Gender Identity Not on file Sexual Orientation Not on file documented as of this encounter Discharge Disposition Disposition Code Departure Means Destination Discharge to home or self care documented in this encounter Plan of Treatment Not on file documented as of this encounter Procedures Procedure Name Priority Date/Time Associated Diagnosis Comments EGFR Routine 09/28/2021 12:12 PM CDT DIFFERENTIAL AUTO Routine 09/28/2021 12: 12 PM CDT CBC WITH AUTO DIFFERENTIAL Routine 09/28/2021 12:12 PM CDT PTH Routine 09/28/2021 12:12 PM CDT IRON Routine 09/28/2021 12:12 PM CDT HEMOGLOBIN A1C Routine 09/28/2021 12:12 PM CDT FERRITIN Routine 09/28/2021 12:12 PM CDT RENAL FUNCTION PANEL Routine 09/28/2021 12:12 PM CDT documented in this encounter Results * eGFR (09/28/2021 12:12 PM CDT) eGFR 24 mL/min/1. 73 m2 [facility] ([place]) Comment: [...] interpretive data was last reviewed 2021. Blood 09/28/2021 12:1 2 PM CDT 09/28/2021 1:24 PM CDT us Osmin Paige MD LAB BLOOD ORDERABLES Final Re sult [facility] ([place]) 1 [facility] [place] [address] * (ABNORMAL) Differential, auto (09/28/2021 12:12 PM CDT) Neutrophil abs 9.2(H) 1.7 - 6.5 K/cumm [facility] ([place]) Imm gran abs 0.1 0.0 - 0.1 K/cumm [facility] ([place]) Lymphocyte abs 4.3(H) 0.8 - 3.3 K/cumm [facility] ([place]) Monocyte abs 0.8 0.2 - 0.8 K/cumm [facility] ([place]) Eosinophil abs 0.3 0.0 - 0.5 K/cumm [facility] ([place]) Basophil abs 0.1 0.0 - 0.1 K/cumm [facility] ([place]) Neutrophil pct 62.1 % [facility] ([place] Comment: Interpretive [...] was last revised on 2017. Lymphocyte pct 29.0 % [facility] ([place] Comment: Interpretive Data Percent cell count reference ranges are not reported, since discordance with absolute values may lead to misinterpretation of CBC data. Current Interpretive Data was last revised on 2017. Monocyte pct 5.6 % [facility] ([place]) Comment: Interpretive Data Percent cell count reference ranges are not reported, since discordance with absolute values may lead to misinterpretation of CBC data. Current Interpretive Data was last revised on 2017. Eosinophil pct 2.2 % [facility] ([place] Comment: Interpretive Data Percent cell count reference ranges are not reported, since discordance with absolute values may lead to misinterpretation of CBC data. Current Interpretive Data was last revised on 2017. Basophil pct 0.4 % [facility] ([place]) Comment: Interpretive Data Percent cell count reference ranges are not reported, since discordance with absolute values may lead to misinterpretation of CBC data. Current Interpretive Data was last revised on 2017. Blood 09/28/2021 12:1 2 PM CDT 09/28/2021 1:24 PM CDT Osmin Paige MD LAB BLOOD ORDERABLES Final Re sult [facility] ([place]) [address] [facility] [employer] [place] [address] * (ABNORMAL) Ferritin (09/28/2021 12:12 PM CDT) Ferritin 14(L) 15 - 150 ng/mL [facility] ([place]) Blood 09/28/2021 12:1 2 PM CDT 09/28/2021 1:24 PM CDT Osmin Paige MD LAB BLOOD ORDERABLES Final Re sult [facility] ([place]) 1 [facility] Department [place] [place] [address] * Iron level (09/28/2021 12:12 PM CDT) Iron 39 35 - 145 mcg/dL [facility] ([place]) Blood 09/28/2021 12:1 2 PM CDT 09/28/2021 1:24 PM CDT us Osmin Paige MD LAB BLOOD ORDERABLES Final Re sult Performing Organization Address [facility] Co de Phone Number [facility] ([place]) 1 [facility] [place] [place] [address] * (ABNORMAL) PTH (09/28/2021 12:12 PM CDT) PTH 103(H) 15 - 65 pg/mL [facility] ([place]) Blood 09/28/2021 12:1 2 PM CDT 09/28/2021 1:24 PM CDT Osmin Paige MD LAB BLOOD ORDERABLES Final Re sult Performing Organization Address [facility] de Phone Number [facility] ([place]) 1 [facility] [place] [address] * (ABNORMAL) Renal function panel (09/28/2021 12:12 PM CDT) Sodium 141 135 - 145 mmol/L [facility] ([place] Potassium, pl 3.6 3.3 - 4.9 mmol/L [facility] ([place]) Chloride 100 97 - 110 mmol/L [facility]) CO2 27 22 - 32 mmol/L [facility] Anion gap 14 2 - 15 mmol/L [facility] BUN 57(H) 8 - 25 mg/dL [facility] Creatinine 2.14(H) 0.60 - 1.10 mg/dL [facility] ([place]) Glucose 65(L) 70 - 199 mg/dL [facility] ([place] Comment: Interpretive Data Fasting glucose [...] interpretive data was last revised 2017. Calcium 9.3 8.5 - 10.3 mg/dL [facility] ([place]) Phosphorus, pl 4.0 2.3 - 4.5 mg/dL [facility] ([place]) Albumin 3.9 3.5 - 5.0 g/dL [facility] ([place]) Blood 09/28/2021 12:1 2 PM CDT 09/28/2021 1:24 PM CDT Osmin Paige MD LAB BLOOD ORDERABLES Final Re sult Performing Organization Address [facility] de Phone Number [facility] ([place]) [address] [facility] [employer] [address] * (ABNORMAL) Hemoglobin A1c (09/28/2021 12:12 PM CDT) Hgb A1C 8.6(H) 4.0 - 5.6 % [facility] ([place]) Estimated Average Glucose 200 mg/dL [facility] ([place]) Comment: The ADA recommends reporting an estimated Average Glucose (eAG) with all Hemoglobin A1c results using the equation derived from a study of 507 normal and diabetic adults. ??Minority populations were underrepresented and children were not included. ?? (Diabetes Care 31:8612-6206, 2008). ??The eAG is not equivalent to a fasting glucose. Blood 09/28/2021 12:1 2 PM CDT 09/28/2021 1:24 PM CDT us Osmin Paige MD LAB BLOOD ORDERABLES Final Re sult Performing Organization Address [facility] Co de Phone Number [facility] ([place]) 1 [facility] DNS:[place] [address] * (ABNORMAL) CBC with auto differential (09/28/2021 12:12 PM CDT) WBC 14.9(H) 3.8 - 9.9 K/cumm [facility] ([place]) Hgb 11.7(L) 11.9 - 15.5 g/dL [facility] ([place]) Hct 37.9 35.6 - 45.5 % [facility] ([place]) Plt 282 150 - 400 K/cumm [facility] ([place]) MPV 10.0 9.1 - 12.3 fL [facility] ([place]) RBC 4.40 3.90 - 5.20 M/cumm [facility] ([place]) MCV 86.1 81.3 - 96.4 fL [facility] ([place]) MCH 26.6(L) 27.1 - 33.3 pg [facility] ([place]) MCHC 30.9(L) 32.3 - 35.7 g/dL [facility] ([place]) RDW CV 14.9 11.1 - 14.9 % [facility] ([place]) RDW SD 47.3 35.7 - 48.1 fL [facility] ([place]) NRBC abs 0.00 0.00 - 0.01 K/cumm [facility] ([place]) Blood 09/28/2021 12:1 2 PM CDT 09/28/2021 1:24 PM CDT us Osmin Paige MD LAB BLOOD ORDERABLES Final Re sult [facility] ([place]) 1 [facility] Department [place] [address] documented in this encounter Visit Diagnoses Not on filedocumented in this encounter Care Teams Sifter And Miller Relationship Specialty Start Date End Date Lalito England MD [address] [place] [address] PCP - General 08/03/19 documented as of this encounter
--- OUTSIDE RECORDS SUMMARY | 2024-07-11 22:39 | XMS_ITS | Encounter Summary ---
Author Organization [facility] Healthcare Address [address] [place] [address] Care Team Providers Care Business Services Administrator Name Role Phone Lalito England MD Primary Care Provider [phone] [phone] Reason for Referral * Consultation (Routine) - Closed Specialty Diagnoses / Procedures Referred By Contac t Referred To Contact Pain Management Diagnoses Sacroiliac joint dysfunction Lalito England MD [address] [place] [address] Phone: tel: fax: Shellie Caruso MD [address] [place] [address] Phone: tel: fax: Referral ID Status Reason Start Date Expiration Date V isits Requested Visits Authorized [id number] Closed Specialty Services Required 07/31/2021 08/30/2022 1 1 Question Answer Please select the performing region: External Order [171] To provider: SHELLIE CARUSO [[id number]] # of visits: 1 Comments dx Sacroiliac joint disease (M53.3) R CUSTODIAN Reason for Visit * Reason Comments Initial Consult Back Pain * Consultation (Routine) - Closed Specialty Diagnoses / Procedures Referred By Contac t Referred To Contact Pain Management Diagnoses Sacroiliac joint dysfunction Lalito England MD [address] [place] [address] Phone: tel: fax: Shellie Caruso MD [address] [place] [address] [address] HARD[address] [place] [address] Phone: tel: fax: Referral ID Status Reason Start Date Expiration Date V isits Requested Visits Authorized [id number] Closed Specialty Services Required 07/31/2021 08/30/2022 1 1 Encounter Details Date Type Department Care Team (Latest Contact Info) Description 09/07/2021 2:32 PM LABOR CUSTODIAN - 09/07/2021 11:59 PM LABOR CUSTODIAN Hospital Encounter [facility] [address] [place] [address] Lalito England MD [address] [place] [address] Shellie Caruso MD [address] [place] [address] [address] H[address]Y [address] [place] [address] DDD (degenerative disc disease), lumbar (Primary Dx); Degenerative lumbar spinal stenosis; Lumbar post-laminectomy syndrome; Sacroiliac joint dysfunction; Cervicalgia; Chronic right-sided low back pain without sciatica; Insomnia secondary to chronic pain; Degenerative cervical spinal stenosis; Degenerative disc disease, cervical Discharge Disposition: Discharge to home or self [...] more points, staff should administer the PHQ-9) 3 09/07/2021 Comments No Sex and Gender Information Value Date Recorded Sex Assigned at Not on file Legal Sex Female 11:52 PM LABOR CUSTODIAN Gender Identity Not on file Sexual Orientation Not on file documented as of this encounter Last Filed Vital Signs Vital Sign Reading Time Taken Comments Blood Pressure 149/72 09/07/2021 2:47 PM LABOR CUSTODIAN Pulse 95 09/07/2021 2:47 PM LABOR CUSTODIAN Temperature - - Respiratory Rate 16 09/07/2021 2:47 PM LABOR CUSTODIAN Oxygen Saturation 97% 09/07/2021 2:47 PM LABOR CUSTODIAN Inhaled Oxygen Concentration - - Weight - - Height - - Body Mass Index - - documented in this encounter Discharge Instructions * Patient Instructions* Susie Ramos RN - 09/07/2021 3:00 PM LABOR CUSTODIAN Patient Education Cyclobenzaprine (By mouth) Cyclobenzaprine (vfj-ptes-XTY-stephanie-preen) Treats pain and stiffness caused by muscle spasms. Brand Name(s): Amrix, Cyclo/John 10/300 Pack, CycloTENS Refill Abrahan, CycloTENS Starter Abrahan, Cyclobenzaprine Comfort Pac, CyclobenzaprinePax, Fexmid, FlexePax, FusePaq Tabradol, RapidPaq Tabradol There may be other brand names for this medicine. When This Medicine Should Not Be Used: This medicine is not right for everyone. Do not use it if you had an allergic reaction to cyclobenzaprine. How to Use This Medicine: Long Acting Capsule, Liquid, Tablet ?? Your doctor will tell you how much medicine to use. Do not use more than directed. ?? Take this medicine at the same time each day. ?? Swallow the extended-release capsule whole. Do not crush, break, or chew it. ?? If you cannot swallow the capsule whole, you may open the capsule and sprinkle the contents overone tablespoon of applesauce. Swallow the mixture right away without chewing. Rinse the mouth to make sure all of the medicine have been swallowed. Do not save any of the mixture to use later. ?? This medicine is not for long-term use. ?? Missed dose: Take a dose as soon as you remember. If it is almost time for your next dose, wait until then and take a regular dose. Do not take extra medicine to make up for a missed dose. ?? Store the medicine in a closed container at room temperature, away from heat, moisture, and direct light. Drugs and Foods to Avoid: Ask your doctor or pharmacist before using any other medicine, including zgeu-bgg-imzndyr medicines, vitamins, and herbal products. ?? Do not use this medicine if you have used an MAO inhibitor (MAOI) within 14 days of each other. ?? Some foods and medicines can affect how this medicine works. Tell your doctor if you are using any of the following: ?? Bupropion, guanethidine, meperidine, tramadol, verapamil ?? Medicine to treat depression (including amitriptyline, imipramine) ?? Do not drink alcohol while you are using this medicine. ?? Tell your doctor if you use anything else that makes you sleepy. Some examples are allergy medicine, narcotic pain medicine, and alcohol. Warnings While Using This Medicine: ?? Tell your doctor if you are or , or if you have liver problems, congestiveheart failure, heart rhythm problems, a recent heart attack, overactive thyroid, or a history of glaucoma or trouble urinating. ?? This medicine may cause the following problems: ?? Serotonin syndrome, when taken with certain medicines ?? This medicine may make you dizzy or drowsy. Do not drive or doing anything that could be dangerous until you know how this medicine affects you. ?? Call your doctor if your symptoms do not improve or if they get worse. ?? Keep all medicine out of the reach of children. Never share your medicine with anyone. Possible Side Effects While Using This Medicine: Call your doctor right away if you notice any of these side effects: ?? Allergic reaction: Itching or hives, swelling in your face or hands, swelling or tingling in your mouth or throat, chest tightness, trouble breathing ?? Anxiety, restlessness, fever, sweating, twitching, nausea, vomiting, diarrhea, seeing or hearingthings that are not there ?? Fast, pounding, or uneven heartbeat ?? Severe drowsiness, fainting, or confusion If you notice these less serious side effects, talk with your doctor: ?? Dizziness ?? Dry mouth If you notice other side effects that you think are caused by this medicine, tell your doctor. Call your doctor for medical advice about side effects. You may report side effects to FDA at 9-927-POT-5588 ?? 2017 [employer] Information is for End User's use only and may not be sold, redistributed or otherwise used for commercial purposes. The above information is an hotel maid only. It is not intended as medical advice for individual conditions or treatments. Talk to your doctor, nurse or pharmacist before following any medical regimen to see if it is safe and effective for you. 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 4 aspirin-acetaminop hen-caffeine (EXCEDRIN MIGRAINE) [...] TIMES A DAY 90 tablet 1 06/25/2021 06/08/202 2 cyclobenzaprine (FLEXERIL) 10 mg tablet Take [...] polyneuropathy, without long-term current use of insulin ([facility]) INJECT 48 UNITS UNDER THE SKIN DAILY 90 mL 1 05/07/2021 2 montelukast (SINGULAIR) 10 mg tablet TAKE 1 TABLET BY MOUTH EVERYDAY AT BEDTIME 90 tablet 1 08/13/2021 2 NovoLOG 100 unit/mL (3 mL) pen for injectionIndicatio ns:Controlled type 2 diabetes mellitus with diabetic polyneuropathy, without long-term current use of insulin ([facility]) INJECT 32 UNITS UNDER THE SKIN 3 [...] by mouth daily 30 capsule 09/07/2021 2 documented in this encounter Discharge Disposition Disposition Code Departure Means Destination Discharge to home or self care documented in this encounter Progress Notes * Shellie Caruso MD - 09/07/2021 3:00 PM CST Patient Name: Criss Ly : 1950 Today's Date: 09/07/2021 PCP: Lalito England MD Referring: Lalito England MD Chief Complaint Patient presents with ??? Initial Consult ??? Back Pain HPI Criss Ly is a 71 y.o. year old female seen in consultation today for Lalito England MD. She presents with a Chief Complaint of bilateral neck and shoulder pain, she denies any arm pain. Additionally she complains of right low back and buttock pain, she denies any leg pain. Her pain began in 2019. Initiating Events include none that she can recall. However, her pain is worsening since her dose of gabapentin was reduced by Dr. Paige her shoe parts caser due to worsening renal insufficiency. In the past in 2006, and in 2008 she had both cervical and lumbar surgery however she states thatthese procedures resolved her pain and she was actually pain-free until 2019. The pain is describedas constant sharp pain. It rates Currently 10/10 on the numeric pain scale. At Worst 10/10 Provocative maneuvers include standing, walking, bending, and looking up., At Best 10/10 Alleviating maneuvers include rest, changing position, and distraction. With regard to additional symptoms the patient reports right hand weakness. She denies any leg Weakness, She reports right finger and occasional right leg Numbness. She denies bowel or bladder incontinence. She reports chronic pain associated Insomnia. Therapeutic modalities attempted to date include gabapentin provides her some relief, tramadol provides her some relief, tizanidine provides her no relief, lumbar spine steroid injections provide herno relief, radiofrequency ablation of her lumbar spine provided her no relief, heat provides her relief, and she is allergic to hydrocodone. Pain Score: 10 - Worst possible pain Pain Location: Back (Cervical) Pain Radiating Towards: trevin shoulders Pain Descriptors: Sharp Pain Frequency: Constant/continuous Pain Onset: Ongoing Clinical Progression: Gradually worsening Effect of Pain on Daily Activities: has difficulty, takes rests as needed Allergies Allergen Reactions ??? Hydrocodone Other (See comments) Reaction: migraines, , , can take tylenol Past Medical History: Diagnosis Date ??? Benign hypertension with CKD (chronic kidney disease) stage III (HCC) ??? Gastroesophageal reflux disease GERD ??? HX OTHER MEDICAL PMO ??? 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 HX OTHER MEDICAL [facility] OA ??? HX OTHER MEDICAL 2008 Discectomy, cervical ??? HX OTHER MEDICAL Fall ??? HX OTHER MEDICAL Left proximal femoral Gamma Nail fixation proximal; Comments: PAULETTE 07/25/2015 - ??? HX OTHER MEDICAL RTKR 2001.; Comments: JALMA 07/25/2015 - ??? HX OTHER MEDICAL LTKR 2006.; Comments: JALMA 07/25/2015 - ??? HX OTHER MEDICAL Back surgery 2007.; Comments: PAULETTE 07/25/2015 - ??? HX OTHER MEDICAL Cervical disc surg. 2008.; Comments: PAULETTE 07/25/2015 - ??? HX OTHER MEDICAL Breast reduction 2009.; Comments: PAULETTE 07/25/2015 - ??? HX OTHER MEDICAL left hip and leg surgery ??? HX OTHER MEDICAL conversion of previous hip arthroplasty left hip; Comments: [facility] TCU unit 02/06 - 02/17/16 for [...] tablet aspirin 81 mg enteric coated tablet wgxkcwp-ppbqooxzrigtt-lrcoqjcr (EXCEDRIN MIGRAINE) 250-250-65 mg per tablet blood [...] mg tablet traMADol (ULTRAM) 50 mg tablet tiZANidine (ZANAFLEX) 2 mg tablet Review of Systems Review of [...] patient is not nervous/anxious. Physical Exam Vitals: 09/07/21 1447 BP: 149/72 BP Location: Right arm Patient Position: Sitting Pulse: 95 Resp: 16 SpO2: 97% There is no height or weight on [...] tenderness. Percussion produces no pain Cervical Flexion 30 [...] is osteophytic ridging and thickened ligamentum flavum. Bqih-rv-buiyvuya osseous spinal canal stenosis. Uncovertebral spurring and facet arthropathy with moderate bilateral osseous neural foraminal narrowing. ?? C6-C7: Surgical level. Osteophytic ridging and thickened ligamentum flavum. Ijqr-zq-zmrmlsdd osseous spinal canal stenosis. Uncovertebral spurring and [...] spine MRI dated 01/26/2018. FINDINGS: SEGMENTATION: 5 qfo-quf-xjkyzvi lumbar type vertebral bodies. ?? ALIGNMENT: There [...] stenosis. Lateral recess narrowing on both sides. Ariy-ox-zxkqlyqw right and mild left neural foraminal narrowing. [...] Jr., M.D. Review of Data: Checked the [employer] INSTRUCTIONAL RESOURCE TEACHER sheet and it was consistent with our meds. UDT results: A sample was not obtained The patient was not given a prescription for intranasal Narcan for the management of opioid inducedrespiratory depression or excess sedation. I reviewed the [place] Prescription Monitoring Program printout and it was consistent and appropriate. The patient denies the use of Tobacco The patient has a diagnosis of hypertension that is managed by her primary care physician. Based ontoday's blood pressure reading she was encouraged to follow- up with primary care physician for further evaluation in management of her blood pressure. Assessment: Based on the history, physical exam, MRI of her lumbar spine, and CT scan of her cervical and lumbar spine my impression is the patient has a primary diagnosis of cervicalgia, cervical degenerative disc disease, degenerative cervical spinal stenosis, lumbago, lumbar degenerative disc dis ease, degenerative lumbar spinal stenosis, lumbar post laminectomy syndrome, sacroiliitis, and insomnia secondary to chronic pain. Based upon the history, and physical exam, and the fact that she hastwo regions of pain in both the cervical and lumbar spine I thought of addressing each 1 separately. However, based upon the history of having multiple injections into her low back, including a radiofrequency ablation that provided her no relief, having both cervical and lumbar surgery, she is an insulin-dependent diabetic with her last A1c level of 11.0, and she has renal insufficiency that is requiring her to reduce her dose of gabapentin I think conservative management would be the best option. I am hesitant to provide her any steroids I do feel that this may elevate her blood sugars, however also injections in the past that provided her no relief. Therefore, I offered her a trial of Cymbalta 30 mg 1 tablet p.o. q.day, and Flexeril 10 mg 1 tablet p.o. q.h.s. to see if this might not help with her sleep architecture and her global sense of well-being. In the interim I encouraged her to continue taking her tramadol and gabapentin. Finally depending upon her response to these conservative measures I did begin the conversation of an intrathecal opioid trial. However, this would require referral to my colleague Dr. Richter. Problem List Musculoskeletal and Injuries Lumbar post-laminectomy syndrome Sacroiliac joint dysfunction Relevant Orders Ambulatory referral to Pain Management Cervicalgia Chronic right-sided low back pain without sciatica Neuro DDD (degenerative disc disease), lumbar - Primary Degenerative lumbar spinal stenosis Insomnia secondary to chronic pain Degenerative cervical spinal stenosis Degenerative disc disease, cervical Plan Orders Placed This Encounter Procedures ??? Ambulatory referral to Pain Management dx Sacroiliac joint disease (M53.3) Standing Status: Standing Number of Occurrences: 1 Referral Priority: Routine Referral Type: Consultation Referral Reason: Specialty Services Required Referral Location: External Order Referred to Provider: Shellie Caruso MD Requested Specialty: Pain Management Number of Visits Requested: 1 I will trial Cymbalta 30 mg 1 tablet p.o. q.day, Flexeril 10 mg 1 tab p.o. q.h.s., encouraged her to continue taking the gabapentin and tramadol, and have her follow-up in 3 weeks time for a repeat evaluation. Objective of opioid based therapy is to allow her to continue activities of daily living with less suffering. No follow-ups on file. Thank you for allowing me to participate in the care of this pleasant patient. Shellie Caruso MD 09/07/2021 R CUSTODIAN documented in this encounter Plan of Treatment Scheduled Referrals Name Type Priority Associated Diagnoses Order Schedule Ambulatory referral to Pain Management Outpatient Referral Routine Sacroiliac joint dysfunction Once for 1 Occurrences starting 09/07/2021 until 09/07/2021 documented as of this encounter Visit Diagnoses Diagnosis DDD (degenerative disc disease), lumbar- Primary Degeneration of lumbar or lumbosacral intervertebral disc Degenerative lumbar spinal stenosis Spinal stenosis of lumbar region Lumbar post-laminectomy syndrome Postlaminectomy syndrome, lumbar region Sacroiliac joint dysfunction Nonallopathic lesion of sacral region, not elsewhere classified Cervicalgia Chronic right-sided low back pain without sciatica Insomnia secondary to chronic pain Degenerative cervical spinal stenosis Spinal stenosis in cervical region Degenerative disc disease, cervical documented in this encounter Discontinued Medications Medication Sig Discontinue Reason Start Date End Da te tiZANidine (ZANAFLEX) 2 mg tablet Take 1 tablet (2 mg total) by mouth every 6 (six) hours as needed for muscle spasms 02/09/2021 09/07/2021 documented as of this encounter Care Teams Business Services Administrator Relationship Specialty Start Date End Date Lalito England MD [address] [place] [address] PCP - General 08/03/19 documented as of this encounter
--- OUTSIDE RECORDS SUMMARY | 2024-07-11 22:39 | XMS_ITS | Encounter Summary ---
Author Organization [facility] Healthcare Address [address] [place] [address] Care Team Providers Care Deli Department Manager Name Role Phone Lalito England MD Primary Care Provider [phone] [phone] Reason for Referral * MRI/CAT/PET Scan (Routine) - Closed Specialty Diagnoses / Procedures Referred By Contac t Referred To Contact Radiology Diagnoses Lumbar radiculopathy Procedures CT Lumbar Spine WO Contrast Lalito England MD [address] [place] [address] Phone: tel: fax: [address] [phone] Referral ID Status Reason Start Date Expiration Date Visits Re quested Visits Authorized [id number] Closed 09/04/2021 12/03/2021 1 1 EPERSON * MRI/CAT/PET Scan (Routine) - Closed Specialty Diagnoses / Procedures Referred By Contac t Referred To Contact Radiology Diagnoses Cervical radiculopathy Procedures CT Cervical Spine WO Contrast Lalito England MD [address] [place] [address] Phone: tel: fax: [address] [phone] Referral ID Status Reason Start Date Expiration Date Visits Re quested Visits Authorized [id number] Closed 09/04/2021 12/03/2021 1 1 EPERSON Reason for Visit * MRI/CAT/PET Scan (Routine) - Closed Specialty Diagnoses / Procedures Referred By Giuliana boone Referred To Contact Radiology Diagnoses Cervical radiculopathy Procedures CT Cervical Spine WO Contrast Lalito England MD [address] [place] [address] Phone: tel: fax: [address] [phone] Referral ID Status Reason Start Date Expiration Date Visits Re quested Visits Authorized [id number] Closed 09/04/2021 12/03/2021 1 1 Encounter Details Date Type Department Care Team (Latest Contact Info) Description 09/04/2021 4:21 PM HOUSEPERSON - 09/04/2021 11:59 PM HOUSEPERSON Hospital Encounter [facility] [address] [place] [id number] Lalito England MD [address] [place] [address] Cervical radiculopathy; Lumbar radiculopathy Discharge Disposition: Discharge to home or self [...] on file Legal Sex Female 11:52 PM HOUSEPERSON Gender Identity Not on file Sexual Orientation [...] 1 tablet (81 mg total) by mouth 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 before 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 4 aspirin-acetaminop hen-caffeine (EXCEDRIN MIGRAINE) [...] polyneuropathy, without long-term current use of insulin ([facility]) INJECT 48 UNITS UNDER THE SKIN DAILY 90 mL 1 05/07/2021 2 montelukast (SINGULAIR) 10 mg tablet TAKE 1 TABLET BY MOUTH EVERYDAY AT BEDTIME 90 tablet 1 08/13/2021 2 NovoLOG 100 unit/mL (3 mL) pen for injectionIndicatio ns:Controlled type 2 diabetes mellitus with diabetic polyneuropathy, without long-term current use of insulin ([facility]) INJECT 32 UNITS UNDER THE [...] polyneuropathy, without long-term current use of insulin ([facility]) TAKE 1 TABLET BY MOUTH EVERY DAY AT NIGHT 90 tablet 1 08/23/2021 2 tiZANidine (ZANAFLEX) 2 mg tablet Take [...] CONTRAST Schedule Routine, Read Routine (OP Routine) 09/04/2021 4:54 PM HOUSEPERSON Lumbar radiculopathy CT CERVICAL SPINE WO CONTRAST Schedule Routine, Read Routine (OP Routine) 09/04/2021 4:47 PM HOUSEPERSON Cervical radiculopathy documented in this encounter Results * CT Lumbar Spine WO Contrast (09/04/2021 4:54 PM HOUSEPERSON) Anatomical Region Laterality Modality Spine N/A Computed Tomogra phy 09/05/2021 1:26 PM HOUSEPERSON Narrative 09/05/2021 1:39 PM HOUSEPERSON EXAM DESCRIPTION: ?? CT LUMBAR SPINE WO [...] MRI dated 01/26/2018. FINDINGS: SEGMENTATION: ?? 5 fnf-ykd-dpkjvsg lumbar type vertebral bodies. ALIGNMENT: ?? There [...] stenosis. ??Lateral recess narrowing on both sides. ??Xrsy-zn-tcuskvxy right and mild left neural foraminal narrowing. [...] PM T: ??09/05/2021 1:39 PM Report ID: [id number] Reading Location: ??[id number] Procedure Note Emil Stacy DO - 09/05/2021 [...] spine MRI dated 01/26/2018. FINDINGS: SEGMENTATION: 5 ewa-jkf-javfeus lumbar type vertebral bodies. ALIGNMENT: There is [...] canal stenosis. Lateral recess narrowing onboth sides. Dngp-km-jivmbpbj right and mild left neural foraminal narrowing. [...] Emil Stacy D.O. AP: AP Report ID: [id number] Reading Location: [id number] Lalito England MD IMG CT PROCEDURES Final R esult * CT Cervical Spine WO Contrast (09/04/2021 4:47 PM HOUSEPERSON) Anatomical Region Laterality Modality Spine N/A Computed Tomogra phy 09/05/2021 1:14 PM HOUSEPERSON Narrative 09/05/2021 1:26 PM HOUSEPERSON EXAM DESCRIPTION: ?? CT CERVICAL SPINE WO [...] is osteophytic ridging and thickened ligamentum flavum. ??Zwcj-qy-dcskmtjz osseous spinal canal stenosis. ??Uncovertebral spurring and facet arthropathy with moderate bilateral osseous neural foraminal narrowing. C6-C7: Surgical level. ??Osteophytic ridging and thickened ligamentum flavum. ?? Vimn-hm-uwveqkot osseous spinal canal stenosis. ??Uncovertebral spurring and [...] PM T: ??09/05/2021 1:26 PM Report ID: [id number] Reading Location: ??[id number] Procedure Note Emil Stacy, DO - 09/05/2021 EXAM DESCRIPTION: CT CERVICAL [...] There is osteophytic ridging and thickenedligamentum flavum. Pigt-sm-ekwkhtnw osseous spinal canal stenosis. Uncovertebral spurring and facet arthropathy with moderate bilateral osseous neural foraminal narrowing. C6-C7: Surgical level. Osteophytic ridging and thickened ligamentumflavum. Vevh-am-epklyihw osseous spinal canal stenosis. Uncovertebral spurringand facet [...] Emil Stacy D.O. AP: AP Report ID: [id number] Reading Location: [place] [address] Lalito England MD IMG CT PROCEDURES Final R esult documented in this encounter Visit Diagnoses Diagnosis Cervical radiculopathy Brachial neuritis or radiculitis nos Lumbar radiculopathy Thoracic or lumbosacral neuritis or radiculitis, unspecified documented in this encounter Care Teams Deli Department Manager Relationship Specialty Start Date End Date Lalito England MD [address] [place] [address] PCP - General 08/03/19 documented as of this encounter
--- OUTSIDE RECORDS SUMMARY | 2024-07-11 22:39 | XMS_ITS | Encounter Summary ---
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 Gender Identity Not on file Sexual Orientation Not on file documented as of this encounter Ordered Prescriptions Prescription Sig Dispense Quantity Refills Last Filled Start Date End Date gabapentin (NEURONTIN) 100 mg capsule Take 1 capsule (100 mg total) by mouth 3 (three) times a day 90 capsule 11 07/09/2021 3 documented in this encounter Plan of Treatment Not on file documented as of this encounter Visit Diagnoses Not on filedocumented in this encounter Discontinued Medications Medication Sig Discontinue Reason Start Date End Da te gabapentin (NEURONTIN) 300 mg capsule Take 1 capsule (300 mg total) by mouth 4 (four) times a day Alternate therapy 02/09/2021 07/09/2021 documented as of this encounter Care Teams Human Service Technician Relationship Specialty Start Date End Date Lalito England MD [address] [place] [address] PCP - General 08/03/19 documented as of this encounter
--- OUTSIDE RECORDS SUMMARY | 2024-07-11 22:39 | XMS_ITS | Encounter Summary ---
Author Organization [facility] Address [address] [facility] [address] [place] [address] Care Team Providers Care Immigration Law Specialist Name Role Phone Lalito England MD Primary Care Provider +1 [phone] Chante Leon [facility] Unavailable [phone] Kassi Fontaine RN Unavailable Parvin Whelan RN Unavailable [phone] Encounter Details Date Type Department Care Team (Late st Contact Info) Description 08/16/2021 ACO Quality [facility] Accountable Care Organization [address] [place] [address] Gracia Mccain MA [address] [place] [address] [address] Social History Tobacco Use Types Packs/Day Years [...] file 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 Gender Identity Not on file Sexual Orientation Not on file documented as of this encounter Plan of Treatment Not on file documented as of this encounter Visit Diagnoses Not on filedocumented in this encounter Care Teams Immigration Law Specialist Relationship Specialty Start Date End Date Lalito England MD [address] [place] [address] PCP - General 08/03/19 Chante Leon [address] [place] [address] Pharmacist Pharmacy 01/04/22 01/21/22 Kassi Fontaine RN [address] [place] [address] [address] [place] [address] Psychological Tests Sales Agent 07/16/22 08/11/22 Parvin Whelan, SEBASTIÁN [address] [place] [address] [address] [place] [address] Psychological Tests Sales Agent 12/19/23 01/18/24 documented as of this encounter
--- OUTSIDE RECORDS SUMMARY | 2024-07-11 22:39 | XMS_ITS | Encounter Summary ---
Author Organization [facility] Address [address] 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 21 tablet 09/20/2021 2 documented in this encounter Plan of Treatment Not on file documented as of this encounter Visit Diagnoses Not on filedocumented in this encounter Care Teams Clerk Travel Reservations Relationship Specialty Start Date End [place] [address] PCP - General 08/03/19 documented as of this encounter
--- OUTSIDE RECORDS SUMMARY | 2024-07-11 22:39 | XMS_ITS | Encounter Summary ---
Author Organization [facility] Address [address] [facility] [address] [place] [address] Care Team Providers Care Ring Facer Name Role Phone Lalito England MD Primary Care Provider [phone] [phone] Reason for Referral * Diagnostic Imaging (Routine) - Closed Specialty Diagnoses / Procedures Referred By Biankaac t Referred To Contact Diagnoses Contusion of left ring finger without damage to nail, initial encounter Procedures XR Hand Left 3+ Vw Lalito England MD [address] [place] [address] Phone: tel: fax: [address] [phone] Referral ID Status Reason Start Date Expiration Date Visits Re quested Visits Authorized [id number] Closed 09/19/2021 10/19/2022 1 1 PROCESSOR TECHNICIAN Reason for Visit * Reason Comments finger problem Pt c/o L ring finger swelling/ pain X1 week. No known injuries. Encounter Details Date Type Department Care Team (Late st Contact Info) Description 09/19/2021 2:00 PM WORD PROCESSOR TECHNICIAN Office Visit [facility] [address] [place] [address] Lalito England MD [address] [place] [address] Encounter for screening mammogram for malignant neoplasm of breast (Primary Dx); Contusion of left ring finger without damage to nail, initial encounter; BMI 39.0-39.9,adult; Severe obesity (BMI 35.0-39.9) with comorbidity (CMS/HCC) [...] on file Legal Sex Female 11:52 PM WORD PROCESSOR TECHNICIAN Gender Identity Not on file Sexual Orientation Not on file documented as of this encounter Last Filed Vital Signs Vital Sign Reading Time Taken Comments Blood Pressure 128/54 09/19/2021 2:03 PM WORD PROCESSOR TECHNICIAN Pulse 94 09/19/2021 2:03 PM WORD PROCESSOR TECHNICIAN Temperature 36.7 ??C (98.1 ??F) 09/19/2021 2:03 PM CS T Respiratory Rate 16 09/19/2021 2:03 PM WORD PROCESSOR TECHNICIAN Oxygen Saturation 95% 09/19/2021 2:03 PM WORD PROCESSOR TECHNICIAN Inhaled Oxygen Concentration - - Weight 110.8 kg (244 lb 3.2 oz) 09/19/2021 2:03 PM WORD PROCESSOR TECHNICIAN Height 167.6 cm (5' 5.98 ) 09/19/2021 2:03 PM CS T Body Mass Index 39.43 09/19/2021 2:03 PM WORD PROCESSOR TECHNICIAN documented in this encounter Progress Notes * Lalito England MD - 09/19/2021 2:00 PM CST Images from the original note were not included. [facility] [place] Chief Complaint. Chief Complaint Patient presents with ??? finger problem Pt c/o L ring finger swelling/ pain X1 week. No known injuries. HPI. Patient is a 71 y.o. female 7 days of swelling at the PIP of the left hand. No trauma to the area. No open wounds/sores. No other joint involvement. No constitutional s/s. No N/V. No recnet changes in blood sugar. Excellent control. Continues to follow with Dr. Caruso, pain management. Reviewed recent CT scan of the cervical and lumbar spine. No new surgical indications. No prior swelling episodes of the PIP. Distally NVI. No chagne in color, no chagne in sensation. Past Medical History: Diagnosis Date ??? Benign hypertension with CKD (chronic kidney disease) stage III (HCC) ??? Gastroesophageal reflux disease GERD ??? HX OTHER MEDICAL PMO ??? 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 HX OTHER MEDICAL [facility] OA ??? HX OTHER MEDICAL 2008 Discectomy, cervical ??? HX OTHER MEDICAL Fall ??? HX OTHER MEDICAL Left proximal femoral Gamma Nail fixation proximal; Comments: [facility] 07/25/2015 - ??? HX OTHER MEDICAL RTKR 2001.; Comments: [facility] 07/25/2015 - ??? HX OTHER MEDICAL LTKR 2006.; Comments: [facility] 07/25/2015 - ??? HX OTHER MEDICAL Back surgery 2007.; Comments: [facility] 07/25/2015 - ??? HX OTHER MEDICAL Cervical disc surg. 2008.; Comments: [facility] 07/25/2015 - ??? HX OTHER MEDICAL Breast reduction 2009.; Comments: [facility] 07/25/2015 - ??? HX OTHER MEDICAL [...] tablet aspirin 81 mg enteric coated tablet slfcrrg-ngzkoapsljyyr-happqimi (EXCEDRIN MIGRAINE) 250-250-65 mg per tablet blood [...] hematuria and urgency. Musculoskeletal: Positive for arthralgias, joint swelling and neck stiffness. Negative for back pain, myalgias and neck pain. Skin: Negative for rash. Neurological: Negative for dizziness, tremors, weakness, light-headedness and headaches. Hematological: Negative for adenopathy. Psychiatric/Behavioral: Negative for dysphoric mood, sleep disturbance and suicidal ideas. The patient is not nervous/anxious. BP 128/54 (BP Location: Right arm, Patient Position: Sitting) Pulse 94 Temp 36.7 ??C (98.1 ??F)(Oral) Resp 16 Ht 167.6 cm (5' 5.98 ) Wt 110.8 kg (244 lb 3.2 oz) SpO2 95% BMI 39.43 kg/m?? Physical Exam: Physical Exam Vitals reviewed. [...] tenderness or left CVA tenderness. Musculoskeletal: General: Tenderness present. Cervical back: Neck supple. Comments: Left 4th finger PIP with sig swelling and TTP. Distally NVI. Limited ROM secondary to swelling. Lymphadenopathy: Cervical: No cervical adenopathy. Skin: Capillary Refill: Capillary refill takes less than 2 seconds. Findings: No erythema. Neurological: Mental Status: She is alert and oriented to person, place, and time. Motor: No weakness. Gait: Gait normal. Psychiatric: Thought Content: Thought content normal. Assessment & Plan: Diagnoses and all orders for this visit: Encounter for screening mammogram for malignant neoplasm of breast (Primary) - SCREENING MAMMOGRAM BILATERAL W FADI; Future Contusion of left ring finger without damage to nail, initial encounter - XR Hand Left 3+ Vw; Future Steroid course and will follow resopnse. WIll montior ersponse. Encourage ICE. Reviewed red flag s/s. BMI 39.0-39.9,adult Reveiwed impact of increased BMI and montiro repsonse. Severe obesity (BMI 35.0-39.9) with comorbidity (CMS/HCC) (HCC) BMI Follow-up includes: nutrition counseling. Body mass index is 39.43 kg/m??. Lalito England MD PROCESSOR TECHNICIAN * Sarah Izquierdo MA - 09/19/2021 2:00 PM CST Scheduled 10/23/2021 documented in this encounter Plan of Treatment Not on file documented as of this encounter Results * XR Hand Left 3+ Vw (09/19/2021 3:50 PM WORD PROCESSOR TECHNICIAN) Anatomical Region Laterality Modality Upper Extremities, Hand Left Computed Radiography 09/20/2021 10:5 5 AM WORD PROCESSOR TECHNICIAN Narrative 09/20/2021 10:59 AM WORD PROCESSOR TECHNICIAN EXAM DESCRIPTION: ?? XR HAND LEFT 3 [...] by ??Emil Stacy D.O. AP: AP D: ??09/20/2021 10:59 AM T: ??09/20/2021 10:59 AM Report ID: [id number] Reading Location: ??[id number] Procedure Note Emil Stacy, DO - 09/20/2021 EXAM DESCRIPTION: XR HAND [...] Emil Stacy D.O. AP: AP Report ID: [id number] Reading Location: [place] [address] Lalito England MD IMG XR PROCEDURES Final R esult documented in this encounter Visit Diagnoses Diagnosis Encounter for screening mammogram for malignant neoplasm of breast- Primary Contusion of left ring finger without damage to nail, initial encounter BMI 39.0-39.9,adult Severe obesity (BMI 35.0-39.9) with comorbidity (HCC) Contusion of left ring finger without damage to nail, initial encounter documented in this encounter Care Teams Ring Facer Relationship Specialty Start Date End Date Lalito England MD [address] [place] [address] PCP - General 08/03/19 documented as of this encounter
--- OUTSIDE RECORDS SUMMARY | 2024-07-11 22:39 | XMS_ITS | Encounter Summary ---
Author Organization [facility] Address [address] [facility] [address] [place] [address] Care Team Providers Care Mold Sprayer Name Role Phone Lalito England MD Primary Care Provider [phone] [phone] Reason for Visit * Reason Onset Date Comments Test Results 09/20/2021 Encounter Details Date Type Department Care Team (Late st Contact Info) Description 09/20/2021 Telephone [facility] [address] [place] [address] Lalito England MD [address] [place] [address] Test Results Social History Tobacco Use Types Packs/Day Years [...] on file Legal Sex Female 11:52 PM YOUTH COORDINATOR Gender Identity Not on file Sexual Orientation Not on file documented as of this encounter Miscellaneous Notes * Telephone Encounter - Lalito England MD - 09/20/2021 2:32 PM YOUTH COORDINATOR Thanks. Script sent. H COORDINATOR * Telephone Encounter - Marylou Tovar MA - 09/20/2021 1:45 PM CST [phone] Spoke w/pt regarding attached results per Dr. Samanta England Prednisone wasn't sent to pharmacy Please review and send to pharmacy if approved or advise Mansoor Hickman H COORDINATOR * Telephone Encounter - Marylou Tovar MA - 09/20/2021 1:45 PM CST ----- Message from Lalito England MD sent at 09/20/2021 12:03 PM YOUTH COORDINATOR ----- No fracutre. Monitor response to steroid and swelling. Lalito Max H COORDINATOR documented in this encounter Plan of Treatment Not on file documented as of this encounter Visit Diagnoses Not on filedocumented in this encounter Care Teams Mold Sprayer Relationship Specialty Start Date End Date [place] [address] PCP - General 08/03/19 documented as of this encounter
--- OUTSIDE RECORDS SUMMARY | 2024-07-11 22:39 | XMS_ITS | Encounter Summary ---
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
--- OUTSIDE RECORDS SUMMARY | 2024-07-11 22:39 | XMS_ITS | Encounter Summary ---
Author Organization [facility] Address [address] [facility] [address] [place] [address] Care Team Providers Care Radiator Specialist Name Role Phone Lalito England MD Primary Care Provider +1 [phone] Encounter Details Date Type Department Care Team (Late st Contact Info) Description 07/04/2021 Telephone [facility] [address] [place] [address] Lalito England MD [address] [place] [address] Social History Tobacco Use Types [...] on file Legal Sex Female 11:52 PM AIRPLANE RENTAL CLERK Gender Identity Not on file Sexual Orientation Not on file documented as of this encounter Miscellaneous Notes * Telephone Encounter - Devi George MA - 07/05/2021 3:56 PM CST Please see attached office visit notes as well. Thank you LANE RENTAL CLERK * Telephone Encounter - Devi George MA - 07/05/2021 3:16 PM CST Left detailed message w/ pt LANE RENTAL CLERK * Telephone Encounter - Lalito England MD - 07/05/2021 3:14 PM AIRPLANE RENTAL CLERK Would just take the evening dose for now. Montior symptom response. LANE RENTAL CLERK * Telephone Encounter - Devi George MA - 07/05/2021 2:23 PM CST Pt aware and would like directions on how to take her gabapentin. Pt states that she has 300 mg 4x daily now and just had this filled. Pt wanting to know if you're only wanting her to take 1 capsule daily? L[address] RENTAL CLERK * Telephone Encounter - Lalito England MD - 07/05/2021 2:20 PM AIRPLANE RENTAL CLERK D/c'd metformin. Sent script for glipizide 2.5mg daily with largest meal to pharmacy. LANE RENTAL CLERK * Telephone Encounter - Devi George MA - 07/05/2021 1:30 PM CST Spoke w/ Dr. Paige office. Dr. Paige is wanting pt to get rid of Metformin all together and replace it w/ something more kidney friendly and change the gabapentin to 300 mg max daily. She is going to fax over pt office visit note from 06/04 and pt most recent visit with them on 06/28. LANE RENTAL CLERK * Telephone Encounter - Sandee Byers - 07/04/2021 3:[address] paige office would like a call back to discuss pts meds [phone] LANE RENTAL CLERK documented in this encounter Plan of Treatment Not on file documented as of this encounter Visit Diagnoses Not on filedocumented in this encounter Care Teams Radiator Specialist Relationship Specialty Start Date End Date [place] [address] PCP - General 08/03/19 documented as of this encounter
--- OUTSIDE RECORDS SUMMARY | 2024-07-11 22:40 | XMS_ITS | Encounter Summary ---
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 Put in new order for [facility]. Pt will contact [facility] to schedule. documented in this encounter Plan of Treatment Not on file documented as of this encounter Visit Diagnoses Not on filedocumented in this encounter Care Teams Mender Hand Relationship Specialty Start Date End Date Lalito England MD [address] [place] [address] PCP - General 08/03/19 documented as of this encounter
--- OUTSIDE RECORDS SUMMARY | 2024-07-11 22:40 | XMS_ITS | Encounter Summary ---
Author Organization 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 Patient aware. * Addendum Note - Svitlana Mitchell - 02/19/2021 11:10 AM CDTAddended by: SVITLANA MITCHELL on: 02/19/2021 11:10 AM Modules accepted: Orders * Telephone Encounter - Devi George MA - 02/16/2021 4:20 PM CDT Svitlana, Can you please place referral? Thank you Dx: Chronic Kidney disease , stage 3b N18.32. * Telephone Encounter - Lalito England MD - 02/16/2021 4:[address] Paige. Thanks. * Telephone Encounter - Devi George MA - 02/16/2021 4:15 PM CDT Pt called and lvm stating that her kidney doctor keeps re-scheduling her apts and is wanting to know if she can be referred somewhere else that is more dependable. Pt wanting to know if there is someone at that she could be referred to? Please advise. Thanks documented in this encounter Plan of Treatment Not on file documented as of this encounter Visit Diagnoses Diagnosis Stage 3b chronic kidney disease (HCC)- Primary documented in this encounter Care Teams Melangeur Operator Relationship Specialty Start Date End Date [place] [place] [address] PCP - General 08/03/19 documented as of this encounter
--- OUTSIDE RECORDS SUMMARY | 2024-07-11 22:40 | XMS_ITS | Encounter Summary ---
Author Organization [facility] Address [address] [facility] [address] [place] [address] Care Team Providers Care Park Guard Name Role Phone Lalito England MD Primary Care Provider [phone] [phone] Encounter Details Date Type Department Care Team (Late st Contact Info) Description 07/12/2020 Orders Only [facility] [address] [place] [address] Bere Su NP [address] [place] [address] Type 2 diabetes mellitus with stage 4 chronic kidney disease, with long-term current use of insulin (CMS/HCC) (Primary Dx) Social History Tobacco Use Types Packs/Day Years Used Date Smoking Tobacco: Never Smokeless Tobacco: Never Alcohol Use Standard Drinks/Week Comments Yes 0 (1 standard drink = 0.6 oz pur e alcohol) occasional PHQ-2 Answer Date Recorded PHQ-2 Score 0 08/02/2019 Comments No Sex and Gender Information Value Date Recorded Sex Assigned at Not on file Legal Sex Female 11:52 PM REALTIME REPORTER Gender Identity Not on file Sexual Orientation Not on file documented as of this encounter Plan of Treatment Not on file documented as of this encounter Visit Diagnoses Diagnosis Type 2 diabetes mellitus with stage 4 chronic kidney disease, with long-term current use of insulin (HCC)- Primary documented in this encounter Care Teams Park Guard Relationship Specialty Start Date End Date Lalito England MD [address] [place] [address] PCP - General 08/03/19 documented as of this encounter
--- OUTSIDE RECORDS SUMMARY | 2024-07-11 22:40 | XMS_ITS | Encounter Summary ---
Author Organization [facility] Address [address] [facility] [address] [place] [address] Care Team Providers Care Splicing Machine Operator Automatic Name Role Phone Lalito England MD Primary Care Provider [phone] [phone] Reason for Visit * Reason Onset Date Comments overdue results 05/11/2020 DEXA Encounter Details Date Type Department Care Team (Late st Contact Info) Description 05/11/2020 Telephone [facility] [address] [place] [address] Lalito England MD [address] [place] [address] overdue results (DEXA) Social History Tobacco Use Types Packs/Day Years Used Date Smoking Tobacco: Never Smokeless Tobacco: Never Alcohol Use Standard Drinks/Week Comments Yes 0 (1 standard drink = 0.6 oz pur e alcohol) occasional PHQ-2 Answer Date Recorded PHQ-2 Score 0 08/02/2019 Comments No Sex and Gender Information Value Date Recorded Sex Assigned at Not on file Legal Sex Female 11:52 PM WHEEL OF FORTUNE DEALER Gender Identity Not on file Sexual Orientation Not on file documented as of this encounter Miscellaneous Notes * Telephone Encounter - Katya Dalal MA - 05/11/2020 4:52 PM CDT Mailed letter to patient asking if they have had outstanding DEXA completed. documented in this encounter Plan of Treatment Not on file documented as of this encounter Visit Diagnoses Not on filedocumented in this encounter Care Teams Splicing Machine Operator Automatic Relationship Specialty Start Date End Date Lalito England MD [address] [place] [address] PCP - General 08/03/19 documented as of this encounter
--- OUTSIDE RECORDS SUMMARY | 2024-07-11 22:40 | XMS_ITS | Encounter Summary ---
Author Organization [facility] Healthcare Address [address] [place] [address] Care Team Providers Care Automatic Serging Machine Operator Name Role Phone Lalito England MD Primary Care Provider [phone] [phone] Encounter Details Date Type Department Care Team (Late st Contact Info) Description 09/25/2020 10:20 AM CDT [address] [address] Marcella Hammer MD [address] [place] [id number] Discharge Disposition: Discharge to home or self care Social History Tobacco Use Types Packs/Day Years Used Date Smoking Tobacco: Never Smokeless Tobacco: Never Alcohol Use Standard Drinks/Week Comments Yes 0 (1 standard drink = 0.6 oz pur e alcohol) occasional PHQ-2 Answer Date Recorded PHQ-2 Total Score (If total score is 3 or more points, staff should administer the PHQ-9) 0 07/17/2020 Comments No Sex and Gender Information Value Date Recorded Sex Assigned at Not on file 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 Gender Identity Not on file Sexual Orientation Not on file documented as of this encounter Discharge Disposition Disposition Code Departure Means Destination Discharge to home or self care documented in this encounter Plan of Treatment Not on file documented as of this encounter Procedures Procedure Name Priority Date/Time Associated Diagnosis Comments URINALYSIS AND REFLEX TO MICROSCOPIC AND CULTURE Routine 09/25/2020 10:36 AM CDT PROTEIN / CREATININE RATIO, URINE, RANDOM Routine 09/25/2020 10:36 AM CDT IMMUNOTYPING Routine 09/25/2020 10:32 AM CDT SABRINA QUALITATIVE WITH REFLEX TO SABRINA QUANTITATIVE Routine 09/25/2020 10:32 AM CDT CLINICAL PATHOLOGY REPORT Routine 09/25/2020 10:32 AM CDT EGFR Routine 09/25/2020 10:32 AM CDT DIFFERENTIAL AUTO Routine 09/25/2020 10: 32 AM CDT CBC WITH AUTO DIFFERENTIAL Routine 09/25/2020 10:32 AM CDT VITAMIN D 25 HYDROXY Routine 09/25/2020 10:32 AM CDT PROTEIN ELECTROPHORESIS, WITH REFLEX, SERUM Routine 09/25/2020 10:32 AM CDT PHOSPHORUS Routine 09/25/2020 10:32 AM CDT PTH Routine 09/25/2020 10:32 AM CDT COMPREHENSIVE METABOLIC PANEL Routine 09/25/2020 10:32 AM CDT documented in this encounter Results * (ABNORMAL) Urinalysis reflex to microscopic and culture Urine, clean voided (09/25/2020 10:36 AM CDT) Color, ur Yellow Yellow [facility] ([place]) Clarity, ur Clear Clear [facility] ([place]) Specific gravity, ur 1.009(L) 1.010 - 1.025 [facility] ([place]) pH, urine 5.5 [facility] ([place]) Protein, ur ql Trace Negative [facility] ([place]) Glucose, ur ql 1+(A) Negative [facility] ([place]) Ketones, ur Negative Negative [facility] ([place]) Bilirubin, ur Negative Negative [facility] ([place]) Blood, ur Negative Negative [facility] ([place]) Urobilinogen, ur <2.0 <2.0 mg/dL ANN CUADRA ([place]) Nitrite, ur Negative Negative ANN A ([place]) Leukocyte esterase, ur Negative Negative ANN CUADRA ([place]) UA reflex comment Reflex conditions for microscopic UA and culture not met. ANN CUADRA ([place]) Urine, clean voided 09/25/2020 10:36 AM CDT 09/25/2020 11:37 AM CDT Narrative ANN CUADRA ([place]) - 09/25/2020 11:52 AM CDT ?? Urine pH is affected by diet, medications, systemic acid-base disturbances, and renal tubular function. ??pH may affect urinary stone formation. ??For example, urine pH below 6.0 may help reduce the tendency for calcium phosphate stones and pH greater than 6.0 may reduce the tendency for uric acid stone formation. Source: [employer] deskwolf. Last revised 07-24-2017 Marcella Hammer MD LAB MICROBIOLOGY - GENERAL ORDERABLES Final Result Performing Organization Address City/State/[facility] Co de Phone Number ANN KHALIF ([place]) 1 [facility] Department of Laboratories [place] [id number] * (ABNORMAL) Protein / creatinine ratio, urine, random (09/25/2020 10:36 AM CDT) Protein, ur, quant 21.0 mg/dL ANN CUADRA ([place]) Comment: Interpretive Data No reference range established. Current interpretive data was last revised 2018. Creatinine Ur 80.6 mg/dL ANN CUADRA ([place]) Comment: Interpretive Data No reference range established. Current interpretive data was last revised 2018. Protein/creatinin e ratio 260.5(H) 0.0 - 180.0 mg/g CR ANN CUADRA ([place]) Urine 09/25/2020 10:3 6 AM CDT 09/25/2020 11:37 AM CDT Marcella Hammer MD LAB URINE ORDERABLES Final Result [facility] ([place]) 1 [facility] Department [place] [address] * Clinical pathology report (09/25/2020 10:32 AM CDT) Miscellaneous 09/25/2020 10: 32 AM CDT 09/26/2020 7:44 AM CDT Narrative 09/26/2020 1:12 PM CDT EPIC results best viewed via link to PDF [facility] Department of Pathology [address] [place] [address] Final Report Patient Name: ? SUSANA RENTERIA Address: ??[address] [place] [address] [place], [place] ??[address] Gender: ??F : ??1950 (Age: 70) Service: ??Laboratory Location: ??Lab Hospital #: ??[id number] Patient Type: ??[facility] EP ANCILLARY Taken: ??09/25/2020 Received: ?? 09/26/2020 Accessioned: ??09/26/2020 Physician(s): ??Marcella Hammer MD [facility] Specimen(s) Received A: Blood (serum) Serum Protein Electrophoresis with Immunofixation/Immunotyping Reported: 09/26/2020 Interpretation: Serum Protein Electrophoresis: Normal serum protein electrophoresis pattern. Serum Protein Immunofixation: Normal serum immunofixation study. Comment: Serum Protein Electrophoresis: There are no significant abnormalities of the protein fractions. Serum Protein Immunofixation: Examination of G, A, and M heavy chains as well as kappa and lambda light chains reveals no evidence of abnormal peaks. See Clinical Desktop and/or separate report for protein fraction table. ?? Randolph Bhatia MD PhD ??Report Electronically Reviewed and Signed Out By ??Randolph Bhatia MD PhD ??09/26/2020 13:10:26 ? The performance characteristics of some immunohistochemical stains, fluorescence in-situ hybridization tests and immunophenotyping by flow cytometry cited in this report (if any) were determined by the Surgical Pathology Department at [facility] as part of an ongoing water quality control engineer program and in compliance with federally [...] characteristics determined by the Surgical Pathology Department [facility]. ??It has not been cleared or approved by the U. S. Food and Drug Administration. REPORT IMAGES AND SCANNED DOCUMENTS, IF INCLUDED, ONLY VIEWABLE IN PDF VERSION OF REPORT us Marcella Hammer MD LAB PATHOLOGY ORDERABLES F inal Result * eGFR (09/25/2020 10:32 AM CDT) eGFR 32 mL/min/1.7 3 m2 ANN CUADRA ([place]) Comment: [...] interpretive data was last reviewed 2020 Blood specimen (specimen) 09/25/2020 10:32 AM CDT 09/25/2020 10:46 AM CDT us Marcella Hammer MD LAB BLOOD ORDERABLES Final Result BETTINACHANO CUADRA ([place]) 1 [facility] Department [place] [address] * (ABNORMAL) Differential, auto (09/25/2020 10:32 AM CDT) Neutrophil abs 7.5(H) 1.7 - 6.5 K/cumm [facility] ([place]) Imm gran abs 0.1 0.0 - 0.1 K/cumm [facility] ([place]) Lymphocyte abs 2.0 0.8 - 3.3 K/cumm [facility] ([place]) Monocyte abs 0.9(H) 0.2 - 0.8 K/cumm [facility] ([place]) Eosinophil abs 0.3 0.0 - 0.5 K/cumm [facility] ([place]) Basophil abs 0.1 0.0 - 0.1 K/cumm [facility] ([place]) Neutrophil pct 69.4 % [facility] ([place]) Comment: Interpretive Data Percent cell count reference ranges are not reported, since discordance with absolute values may lead to misinterpretation of CBC data. Current Interpretive Data was last revised on 2017. Imm gran pct 0.6 % [facility] ([place]) Comment: Interpretive Data Percent cell count reference ranges are not reported, since discordance with absolute values may lead to misinterpretation of CBC data. Current Interpretive Data was last revised on 2017. Lymphocyte pct 18.4 % [facility] ([place]) Comment: Interpretive Data Percent cell count reference ranges are not reported, since discordance with absolute values may lead to misinterpretation of CBC data. Current Interpretive Data was last revised on 2017. Monocyte pct 8.3 % ANN CUADRA ([place]) Comment: Interpretive Data Percent cell count reference ranges are not reported, since discordance with absolute values may lead to misinterpretation of CBC data. Current Interpretive Data was last revised on 2017. Eosinophil pct 2.7 % BETTINANE R KHALIF ([place]) Comment: Interpretive Data Percent cell count reference ranges are not reported, since discordance with absolute values may lead to misinterpretation of CBC data. Current Interpretive Data was last revised on 2017. Basophil pct 0.6 % ANN CUADRA ([place]) Comment: Interpretive Data Percent cell count reference ranges are not reported, since discordance with absolute values may lead to misinterpretation of CBC data. Current Interpretive Data was last revised on 2017. Blood specimen (specimen) 09/25/2020 10:32 AM CDT 09/25/2020 10:46 AM CDT us Marcella Hammer MD LAB BLOOD ORDERABLES Final Result ANN CUADRA ([place]) 1 [facility] Department [place] [address] * Protein Electrophoresis, With Reflex, Serum (09/25/2020 10:32 AM CDT) Protein, sr 7.0 6.2 - 8.2 g/dL ANN CUADRA ([place]) Comment:Testing performed by : [facility], [address] [place] [address], [place]., [address] Albumin 3.7 3.2 - 5.0 g/dL ANN CUADRA ([place]) Comment:Testing performed by : [facility], [address] [place] [address], [place] [address] Alpha-1 globulin 0.3 0.2 - 0.4 g/dL ANN CUADRA ([place]) Comment:Testing performed by : [facility], [address] [place] [address]., [address] Alpha-2 globulin 0.9 0.5 - 1.0 g/dL [facility] ([place]) Comment:Testing performed by : [facility], [address] [place] [address]., [address] Beta-1 globulin 0.5 0.3 - 0.6 g/dL [facility] ([place]) Comment:Testing performed by : [facility], [address] [place] [address], [address] Beta-2 globulin 0.4 0.2 - 0.6 g/dL [facility] ([place]) Comment:Testing performed by : [facility], [address] [place] [address], [address] Gamma globulin 1.1 0.5 - 1.7 g/dL [facility] ([place]) Comment:Testing performed by : [facility], [address] [place] [address], [id number] SPEP interp See Cl Path Rpt [facility] ([place]) Comment:Testing performed by : [facility], [address] [place] [address], [id number] Blood specimen (specimen) 09/25/2020 10:32 AM CDT 09/25/2020 2:20 PM CDT us Marcella Hammer MD LAB BLOOD ORDERABLES Final Result [facility] ([place]) 1 [facility] [place] [employer] [address] * Immunotyping, serum (09/25/2020 10:32 AM CDT) [facility] Immunofixation See Cl Path Rpt [facility] ([place]) Comment:Testing performed by : [facility], [address] [place] [address], [id number] Blood specimen (specimen) 09/25/2020 10:32 AM CDT 09/25/2020 2:20 PM CDT Marcella Hammer MD LAB BLOOD ORDERABLES Final Result BETTINACHANO KHALIF ([place]) 1 [facility] [employer] [place] [address] * (ABNORMAL) SABRINA qualitative with reflex to SABRINA Quantitative (09/25/2020 10:32 AM CDT) SABRINA Positive (A) Negative ANN CUADRA ([place]) Comment: Interpretive Data Normal range for SABRINA Qualitative Antibody = Negative. 1. SABRINA is performed using indirect immunofluorescence against HEp-2 ?? cells 2. SABRINA titers are performed on all positive qualitative results. 3. A significantly positive SABRINA result is defined as a positive nuclear ?? fluorescence at a titer of 1:80 or greater. 4. 15% of normal people above age 65 have significantly positive ?? SABRINA results. ??5% or less of normal people age 65 or under have ?? significantly positive SABRINA results. Current interpretive data was last revised on 20. Testing performed by: [facility], [address] [place] [address]., [address] SABRINA, quant 1:80(A) [facility] ([place]) Comment:Testing performed by : [facility], [address] [place] [address]., [address] SABRINA, interp Homogene ous(A) ANN CUADRA ([place]) Comment:Testing performed by : [facility], [address] [place] [address]., [id number] Blood specimen (specimen) 09/25/2020 10:32 AM CDT 09/25/2020 2:20 PM CDT Marcella Hammer MD LAB BLOOD ORDERABLES Final Result ANN CUADRA ([place]) 1 [facility] Department [place] [address] * Vitamin D 25 hydroxy (09/25/2020 10:32 AM CDT) Vitamin D 25-OH 35 30 - 80 ng/mL ANN CUADRA ([place]) Blood specimen (specimen) 09/25/2020 10:32 AM CDT 09/25/2020 10:46 AM CDT Marcella Hammer MD LAB BLOOD ORDERABLES Final Result ANN CUADRA ([place]) 1 [facility] [place] [employer] [address] * Phosphorus (09/25/2020 10:32 AM CDT) Pathologist [facility] Phosphorus, pl 2.9 2.3 - 4.5 mg/dL [facility] ([place]) Blood specimen (specimen) 09/25/2020 10:32 AM CDT 09/25/2020 10:46 AM CDT Marcella Hammer MD LAB BLOOD ORDERABLES Final Result Performing Organization Address City/[facility]/ZIP Co de Phone Number ANN CUADRA ([place]) 1 [facility] [place] [employer] [address] * (ABNORMAL) PTH (09/25/2020 10:32 AM CDT) [facility] PTH 79(H) 15 - 65 pg/mL [facility] ([place]) Blood specimen (specimen) 09/25/2020 10:32 AM CDT 09/25/2020 10:46 AM CDT Marcella Hammer MD LAB BLOOD ORDERABLES Final Result Performing Organization Address City/[facility]/ZIP Co de Phone Number ANN CUADRA ([place]) 1 [facility] [place] [address] * (ABNORMAL) CBC with auto differential (09/25/2020 10:32 AM CDT) Pathologist [facility] WBC 10.8(H) 3.8 - 9.9 K/cumm [facility] ([place]) Hgb 9.3(L) 11.9 - 15.5 g/dL [facility] ([place]) Hct 31.1(L) 35.6 - 45.5 % [facility] ([place]) Plt 287 150 - 400 K/cumm [facility] ([place]) MPV 9.8 9.1 - 12.3 fL [facility] ([place]) RBC 3.75(L) 3.90 - 5.20 M/cumm [facility] MCV 82.9 81.3 - 96.4 fL [facility] MCH 24.8(L) 27.1 - 33.3 pg [facility] MCHC 29.9(L) 32.3 - 35.7 g/dL [facility] RDW CV 15.9(H) 11.1 - 14.9 % [facility] RDW SD 48.2(H) 35.7 - 48.1 fL [facility] NRBC abs 0.00 0.00 - 0.01 K/cumm [facility] Blood specimen (specimen) 09/25/2020 10:32 AM CDT 09/25/2020 10:46 AM CDT us Marcella Hammer MD LAB BLOOD ORDERABLES Final Result [facility] ([place]) 1 [facility] Department [place] [address] * (ABNORMAL) Comprehensive metabolic panel (09/25/2020 10:32 AM CDT) Sodium 135 135 - 145 mmol/L [facility] ([place]) Potassium, pl 4.5 3.3 - 4.9 mmol/L [facility] ([place]) Chloride 96(L) 97 - 110 mmol/L [facility] CO2 27 22 - 32 mmol/L [facility]) Anion gap 13 2 - 15 mmol/L [facility] BUN 20 8 - 25 mg/dL [facility] ([place]) Creatinine 1.60(H) 0.60 - 1.10 mg/dL [facility] ([place]) Glucose 198 70 - 199 mg/dL [facility] ([place]) Comment: Interpretive Data Fasting glucose [...] 2017. Calcium 9.2 8.5 - 10.3 mg/dL [facility] ([place]) Bilirubin, total 0.4 0.1 - 1.2 mg/dL [facility] ([place]) Protein, pl 7.0 6.5 - 8.5 g/dL [facility] ([place]) Albumin 3.8 3.5 - 5.0 g/dL [facility] ([place]) Alk phos 64 40 - 130 Units/L [facility] ([place]) ALT 19 7 - 45 Units/L [facility] ([place]) AST 25 10 - 45 Units/L [facility] ([place]) Blood specimen (specimen) 09/25/2020 10:32 AM CDT 09/25/2020 10:46 AM CDT us Marcella Hammer MD LAB BLOOD ORDERABLES Final Result [facility] ([place]) 1 [facility] Department [place] [address] documented in this encounter Visit Diagnoses Not on filedocumented in this encounter Care Teams Automatic Serging Machine Operator Relationship Specialty Start Date End Date [place] [address] PCP - General 08/03/19 documented as of this encounter
--- OUTSIDE RECORDS SUMMARY | 2024-07-11 22:40 | XMS_ITS | Encounter Summary ---
Author Organization [facility] Healthcare Address [address] [place] [address] Care Team Providers Care Publication Manager Name Role Phone Lalito England MD Primary Care Provider [phone] Reason for Referral * Diagnostic Imaging (Routine) - Closed Specialty Diagnoses / Procedures Referred By Contac t Referred To Contact Diagnoses Chronic kidney disease, stage 3b (HCC) Procedures US Kidney Complete Raghav Hammer MD Phone: tel: fax: [address] [phone] Referral ID Status Reason Start Date Expiration Date Visits Re quested Visits Authorized [id number] Closed 09/13/2020 10/13/2021 1 1 Reason for Visit * Diagnostic Imaging (Routine) - Closed Specialty Diagnoses / Procedures Referred By Contac t Referred To Contact Diagnoses Chronic kidney disease, stage 3b (HCC) Procedures US Kidney Complete Raghav Hammer MD Phone: tel: fax: [address] [phone] Referral ID Status Reason Start Date Expiration Date Visits Re quested Visits Authorized [id number] Closed 09/13/2020 10/13/2021 1 1 Encounter Details Date Type Department Care Team (Latest Contact Info) Description 09/25/2020 8:57 AM CDT - 09/25/2020 11:59 PM CDT Hospital Encounter [facility] [address] [place] [address] Raghav Hammer MD [address] [place] [address] Chronic kidney disease, stage 3b Discharge Disposition: Discharge to home or self [...] file 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 Gender Identity Not on file Sexual [...] fracture TAKE 1 TABLET BY MOUTH EVERY 7 DAYS 12 tablet 2 09/04/2020 1 amLODIPine (NORVASC) 5 mg tabletIndications: Hypertension associated with type 2 diabetes mellitus (HCC) TAKE ONE TABLET BY MOUTH ONCE DAILY 90 tablet 1 07/31/2020 1 aspirin 81 mg enteric coated tabletIndications: prevention of thrombosis Take 1 tablet (81 mg total) by mouth pharmacy operations manager before breakfast 4 aspirin-acetaminop hen-caffeine (EXCEDRIN MIGRAINE) [...] TWO TIMES A DAY 90 tablet 1 07/03/2020 1 fluticasone propionate (Flonase) 50 mcg/actuation nasal sprayIndications:S easonal allergic rhinitis due to pollen Administer 2 sprays into each nostril daily 3 Inhaler 1 04/21/2020 1 furosemide (LASIX) 20 mg tabletIndications: Hypertension associated with type 2 diabetes mellitus (HCC) TAKE 1 TABLET BY MOUTH EVERY DAY 90 tablet 1 08/21/2020 1 gabapentin (NEURONTIN) 300 mg capsule take 2 Capsule by oral route every day 0 0 07/21/2015 1 insulin aspart U-100 (NovoLOG) 100 unit/mL injectionIndicatio ns:type 2 diabetes mellitus Inject 32 Units under the skin 3 (three) times a day before meals 84 mL 1 04/21/2020 1 irbesartan-hydroCH LOROthiazide (AVALIDE) 300-12.5 mg per tabletIndications: Hypertension associated with type 2 diabetes mellitus (HCC) TAKE 1 TABLET BY MOUTH EVERY DAY 90 tablet 1 09/25/2020 1 Lantus Solostar U-100 Insulin 100 unit/mL (3 mL) insulin penIndications:Con trolled type 2 diabetes mellitus with diabetic polyneuropathy, without long-term current use of insulin ([facility]) INJECT 48 UNITS UNDER THE SKIN DAILY 30 mL 1 09/25/2020 1 metFORMIN (GLUCOPHAGE) 500 mg tablet Take 1 tablet (500 mg total) by mouth daily with breakfast 30 tablet 3 08/03/2020 1 montelukast (SINGULAIR) 10 mg tablet take 1 tablet (10MG) by ORAL route every day in the evening 0 09/18/[address] (PROTONIX) 40 mg EC tabletIndications: Gastroesophageal reflux disease TAKE ONE TABLET BY MOUTH TWICE A DAY 180 tablet 1 06/27/2020 1 pen needle, diabetic (BD Ultra-Fine Mini Pen Needle) 31 gauge x 3/16 needle 1 needle as directed 300 each 3 02/04/2020 1 simvastatin (ZOCOR) 40 mg tabletIndications: hyperlipidemia Take 1 tablet (40 mg total) by mouth nightly 90 tablet 1 09/01/2020 1 tiZANidine (ZANAFLEX) 2 mg tablet Take 1 tablet (2 mg total) by mouth every 6 (six) hours as needed for muscle spasms 30 tablet 1 02/11/2020 1 traMADol (ULTRAM) 50 mg tablet take 1 [...] COMPLETE Schedule Routine, Read Routine (OP Routine) 09/25/2020 9:24 AM CDT Chronic kidney disease, stage 3b documented in this encounter Results * US Kidney Complete (09/25/2020 9:24 AM CDT) Anatomical Region Laterality Modality Kidney N/A Ultrasound 09/25/2020 9:27 AM CDT Impressions 09/25/2020 9:28 AM CDT 1. ??No definite evidence of hydronephrosis. Electronically signed by: Fabiana Lilly D.O. Narrative 09/25/2020 9:28 AM CDT EXAMINATION: US KIDNEY COMPLETE ORDERING HEALTHCARE PROVIDER: RAGHAV HAMMER HISTORY: N18.32. History of hypertension and diabetes. ??Chronic kidney disease stage IIIB. ??Symptoms of unknown duration. ?? COMPARISON: 11/04/2017 TECHNIQUE: Ultrasonic evaluation of the kidneys was obtained with grayscale imaging and color Doppler. Ultrasound is not sensitive for detection of solid renal masses. FINDINGS: The exam is suboptimal secondary to patient's body habitus. The right kidney measures 11.0 x 4.7 x 4.6 cm. There is no evidence of hydronephrosis. The right kidney has normal echotexture and cortical thickness. The left kidney measures 10.5 x 5.3 x 4.6 cm. There is no evidence of hydronephrosis. The left kidney has normal echotexture and cortical thickness. The bladder, as visualized, is unremarkable. ??The calculated prevoid urinary bladder volume is 75.9 mL. ??There is no significant postvoid residual urinary bladder volume. Procedure Note Fabiana Lilly, DO - 09/25/2020 EXAMINATION: US KIDNEY COMPLETE ORDERING HEALTHCARE PROVIDER: RAGHAV HAMMER HISTORY: N18.32. History of hypertension and diabetes. Chronic kidney disease stage IIIB. Symptoms of unknown duration. COMPARISON: 11/04/2017 TECHNIQUE: Ultrasonic evaluation of the kidneys was obtained with grayscale imaging and color Doppler. Ultrasound is not sensitive for detection of solid renal masses. FINDINGS: The exam is suboptimal secondary to patient's body habitus. The right kidney measures 11.0 x 4.7 x 4.6 cm. There is no evidence of hydronephrosis. The right kidney has normal echotexture and cortical thickness. The left kidney measures 10.5 x 5.3 x 4.6 cm. There is no evidence of hydronephrosis. The left kidney has normal echotexture and cortical thickness. The bladder, as visualized, is unremarkable. The calculated prevoid urinary bladder volume is 75.9 mL. There is no significant postvoid residual urinary bladder volume. IMPRESSION: 1. No definite evidence of hydronephrosis. Electronically signed by: Fabiana Lilly D.O. us Raghav Hammer MD IM US PROCEDURES Final Re sult documented in this encounter Visit Diagnoses Diagnosis Chronic kidney disease, stage 3b (HCC) documented in this encounter Care Teams Publication Manager Relationship Specialty Start Date End Date Lalito England MD [address] [place] [address] PCP - General 08/03/19 documented as of this encounter
--- OUTSIDE RECORDS SUMMARY | 2024-07-11 22:40 | XMS_ITS | Encounter Summary ---
Author Organization [facility] Medical Group Address [address] [place] [address] Care Team Providers Care Band Presser Name Role Phone Lalito England MD Primary Care Provider [phone] Reason for Visit * Reason Onset Date Comments Insurance Referrals 02/08/2020 Dr. Pierre Encounter Details Date Type Department Care Team (Late st Contact Info) Description 02/08/2020 Telephone [facility] [address] [place] [address] Tracy Morrow, [address] [facility] [address] [place] [address] Insurance Referrals (Dr. 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 Pierre. Obtained ins auth through [employer] and faxed copy of ins referral to Dr. Pierre's office. Patient notified. documented in this encounter Plan of Treatment Not on file documented as of this encounter Visit Diagnoses Not on filedocumented in this encounter Care Teams Band Presser Relationship Specialty Start Date End Date Lalito England MD [address] [place] [address] PCP - General 08/03/19 documented as of this encounter
--- OUTSIDE RECORDS SUMMARY | 2024-07-11 22:40 | XMS_ITS | Encounter Summary ---
Author Organization [facility] Medical Group Address [address] [place] [address] Care Team Providers Care Principal Technologist Name Role Phone Lalito England MD Primary Care Provider [phone] Reason for Visit * Reason Onset Date Comments overdue results 03/30/2020 mammogram Encounter Details Date Type Department Care Team (Late st Contact Info) Description 03/30/2020 Telephone [facility] [address] [place] [address] Lalito England MD [address] [facility] [address] overdue results (mammogram) Social History Tobacco Use Types Packs/Day Years Used Date Smoking Tobacco: Never Smokeless Tobacco: Never Alcohol Use Standard Drinks/Week Comments Yes 0 (1 standard drink = 0.6 oz pur e alcohol) occasional PHQ-2 Answer Date Recorded PHQ-2 Score 0 08/02/2019 Comments No Sex and Gender Information Value Date Recorded Sex Assigned at Not on file 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 documented in this encounter Plan of Treatment Not on file documented as of this encounter Visit Diagnoses Not on filedocumented in this encounter Care Teams Principal Technologist Relationship Specialty Start Date End Date Lalito England MD [address] [place] [address] PCP - General 08/03/19 documented as of this encounter
--- OUTSIDE RECORDS SUMMARY | 2024-07-11 22:40 | XMS_ITS | Encounter Summary ---
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 21 tablet 02/11/2020 0 albuterol HFA (PROVENTIL HFA,VENTOLIN HFA) 90 mcg/actuation inhaler Inhale 2 puffs every 6 (six) hours as needed for wheezing. 3 alendronate (FOSAMAX) 70 mg tabletIndications: Age-related osteoporosis without current pathological fracture Take 1 tablet (70 mg total) by mouth every 7 days 13 tablet 1 08/02/2019 0 amLODIPine (NORVASC) 5 mg tabletIndications: Hypertension associated with type 2 diabetes mellitus (HCC) Take 1 tablet (5 mg total) by mouth daily 90 tablet 1 08/02/2019 1 aspirin 81 mg enteric coated tabletIndications: prevention of thrombosis Take 1 tablet (81 mg total) by mouth appraiser irrigation tax before breakfast 4 aspirin-acetaminop hen-caffeine (EXCEDRIN MIGRAINE) 250-250-65 mg per tablet Take 1 tablet by mouth every 6 (six) hours as needed. 2 blood glucose diagnostic (CONTOUR NEXT STRIPS) strip USE ONE STRIP IN METER THREE TIMES A DAY 300 strip 11 07/04/2014 1 calcium carbonate-vitamin D3 500 mg(1,250mg) -400 unit tablet Take one by mouth two times per day 0 0 08/10/2007 4 cloNIDine (CATAPRES) 0.1 mg tabletIndications: hypertension Take 0.5 tablets (0.05 mg total) by mouth 2 (two) times a day 1/2 tablet by mouth 90 tablet 1 08/02/2019 0 fluticasone propionate (Flonase) 50 mcg/actuation nasal sprayIndications:S easonal allergic rhinitis due to pollen Administer 2 sprays into each nostril daily 3 Inhaler 1 08/02/2019 0 furosemide (LASIX) 20 mg tabletIndications: Edema Take 1 tablet (20 mg total) by mouth daily 90 tablet 1 08/02/2019 0 gabapentin (NEURONTIN) 300 mg capsule take 2 Capsule by oral route every day 0 0 07/21/2015 1 insulin aspart U-100 (NovoLOG) 100 unit/mL injectionIndicatio ns:type 2 diabetes mellitus Inject 32 Units under the skin 3 (three) times a day before meals 84 mL 1 08/02/2019 0 insulin glargine (LANTUS,BASAGLAR) 100 unit/mL (3 mL) insulin penIndications:typ e 2 diabetes mellitus Inject 48 Units under the skin daily 5 pen 3 08/02/2019 0 irbesartan-hydroCH LOROthiazide (AVALIDE) 300-12.5 mg per tabletIndications: Hypertension associated with type 2 diabetes mellitus (HCC) Take 1 tablet by mouth daily 90 tablet 1 08/02/2019 0 metFORMIN (GLUCOPHAGE) 500 mg tabletIndications: Controlled type 2 diabetes mellitus with diabetic polyneuropathy, without long-term current use of insulin (HCC) Take 2 tablets (1,000 mg total) by mouth 2 (two) times a day with meals 360 tablet 1 02/10/2020 1 montelukast (SINGULAIR) 10 mg tablet take 1 tablet (10MG) by ORAL route every day in the evening 0 09/18/[address] (PROTONIX) 40 mg EC tabletIndications: Gastroesophageal reflux disease, esophagitis presence not specified Take 1 tablet (40 mg total) by mouth 2 (two) times a day 180 tablet 1 08/02/2019 0 pen needle, diabetic (BD Ultra-Fine Mini Pen Needle) 31 gauge x 3/16 needle 1 needle as directed 300 each 3 02/04/2020 1 simvastatin (ZOCOR) 40 mg tabletIndications: hyperlipidemia Take 1 tablet (40 mg total) by mouth nightly 90 tablet 1 08/02/2019 0 tiZANidine (ZANAFLEX) 2 mg tablet Take 1 [...] AND REFLEX TO MICROSCOPIC AND CULTURE Routine 02/11/2020 3:26 PM CDT Flank pain documented in this encounter Results * (ABNORMAL) Urinalysis reflex to microscopic and culture Urine (02/11/2020 3:26 PM CDT) Color, ur Yellow Yellow [facility] Clarity, ur Clear Clear [facility] Specific gravity, ur 1.009(L) 1.010 - 1.025 [facility] pH, urine 5.0 [facility] Protein, ur ql Negative Negative [facility] Glucose, ur ql Negative Negative [facility] Ketones, ur Negative Negative [facility] Bilirubin, ur Negative Negative [facility] Blood, ur Negative Negative [facility] Urobilinogen, ur <2.0 <2.0 mg/dL [facility] Nitrite, ur Negative Negative [facility] Leukocyte esterase, ur Negative Negative [facility] UA reflex comment Reflex conditions for microscopic UA and culture not met. [facility] Urine 02/11/2020 3:26 PM CDT 02/11/2020 7:09 PM CDT Narrative [facility] - 02/11/2020 7:40 PM CDT ?? Urine pH is affected by diet, medications, systemic acid-base disturbances, and renal tubular function. ??pH may affect urinary stone formation. ??For example, urine pH below 6.0 may help reduce the tendency for calcium phosphate stones and pH greater than 6.0 may reduce the tendency for uric acid stone formation. Source: [employer]. Last revised 07-24-2017 us Lalito England MD LAB MICROBIOLOGY - GENERA L ORDERABLES Final Result [facility] [id number] Department [place] [address] documented in this encounter Visit Diagnoses Diagnosis Flank pain Abdominal pain, unspecified site documented in this encounter Care Teams Human Resources Team Member Relationship Specialty Start Date End [place] [address] PCP - General 08/03/19 documented as of this encounter
--- OUTSIDE RECORDS SUMMARY | 2024-07-11 22:40 | XMS_ITS | Encounter Summary ---
Author Organization [facility] Healthcare Address [address] [place] [address] Care Team Providers Care Forest Technology Professor Name Role Phone Lalito England MD Primary Care Provider [phone] Encounter Details Date Type Department Care Team (Latest Contact Info) Description 07/10/2020 2:45 PM GAS ROLLER OPERATOR - 07/10/2020 11:59 PM GAS ROLLER OPERATOR Hospital Encounter [facility] [address] [facility] [address] [place] [address] Lalito England MD [address] [place] [address] Bere Su NP [address] [place] [address] Controlled type 2 diabetes mellitus with diabetic polyneuropathy, without long-term current use of insulin ([facility]) Discharge Disposition: Discharge to home or self [...] file 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 Gender Identity Not on file Sexual [...] mouth every 7 days 13 tablet 1 03/23/2020 1 amLODIPine (NORVASC) 5 mg tabletIndications: Hypertension associated with type 2 diabetes mellitus (HCC) Take 1 tablet (5 mg total) by mouth daily 90 tablet 1 08/02/2019 1 aspirin 81 mg enteric coated tabletIndications: prevention of thrombosis Take 1 tablet (81 mg total) by mouth bid analyst before breakfast 4 aspirin-acetaminop hen-caffeine (EXCEDRIN MIGRAINE) [...] 04/21/2020 1 furosemide (LASIX) 20 mg tabletIndications: Edema Take 1 tablet (20 mg total) by mouth daily 90 tablet 1 02/25/2020 1 gabapentin (NEURONTIN) 300 mg capsule take 2 Capsule by oral route every day 0 0 07/21/2015 1 insulin aspart U-100 (NovoLOG) 100 unit/mL injectionIndicatio ns:type 2 diabetes mellitus Inject 32 Units under the skin 3 (three) times a day before meals 84 mL 1 04/21/2020 1 insulin glargine (LANTUS,BASAGLAR) 100 unit/mL (3 mL) insulin penIndications:typ e 2 diabetes mellitus Inject 48 Units under the skin daily 5 pen 3 06/01/2020 1 irbesartan-hydroCH LOROthiazide (AVALIDE) 300-12.5 mg per tabletIndications: Hypertension associated with type 2 diabetes mellitus (HCC) Take 1 tablet by mouth daily 90 tablet 1 03/23/2020 1 metFORMIN (GLUCOPHAGE) 500 mg tabletIndications: Controlled type [...] total) by mouth nightly 90 tablet 1 02/23/2020 1 tiZANidine (ZANAFLEX) 2 mg tablet Take [...] Priority Date/Time Associated Diagnosis Comments EGFR Routine 07/10/2020 2:46 PM GAS ROLLER OPERATOR Controlled type 2 diabetes mellitus with diabetic polyneuropathy, without long-term current use of insulin ([facility]) DIFFERENTIAL AUTO Routine 07/10/2020 2:4 6 PM GAS ROLLER OPERATOR Controlled type 2 diabetes mellitus with diabetic polyneuropathy, without long-term current use of insulin ([facility]) CBC WITH AUTO DIFFERENTIAL Routine 07/10/2020 2:46 PM GAS ROLLER OPERATOR Controlled type 2 diabetes mellitus with diabetic polyneuropathy, without long-term current use of insulin ([facility]) HEMOGLOBIN A1C Routine 07/10/2020 2:46 PM GAS ROLLER OPERATOR Controlled type 2 diabetes mellitus with diabetic polyneuropathy, without long-term current use of insulin ([facility]) LIPID PANEL Routine 07/10/2020 2:46 PM GAS ROLLER OPERATOR Controlled type 2 diabetes mellitus with diabetic polyneuropathy, without long-term current use of insulin ([facility]) COMPREHENSIVE METABOLIC PANEL Routine 07/10/2020 2:46 PM GAS ROLLER OPERATOR Controlled type 2 diabetes mellitus with diabetic polyneuropathy, without long-term current use of insulin ([facility]) documented in this encounter Results * eGFR (07/10/2020 2:46 PM GAS ROLLER OPERATOR) [facility] eGFR 28 mL/min/1.7 3 m2 ANN MENDES Comment: Interpretive Data Reference Interval Normal ?>/= 90 mL/min/1.73m2 Mildly decreased* ? 60 - 89 mL/min/1.73m2 Mildly to moderately decreased ?45 - 59 mL/min/1.73m2 Moderately to severely decreased ??30 - 44 mL/min/1.73m2 Severely decreased ?15 - 29 mL/min/1.73m2 Kidney Failure ?< 15 ??mL/min/1.73m2 *Relative to young adult level If -Gabonese multiply value by 1.16. Estimated glomerular filtration rate is determined by [...] 70. Current interpretive data was last reviewed 2016. Blood specimen (specimen) 07/10/2020 2:46 PM GAS ROLLER OPERATOR 07/10/2020 7:31 PM GAS ROLLER OPERATOR Bere Su NP LAB BLOOD ORDERABLES Final Result [facility] [address] Department [place] [address] * (ABNORMAL) Differential, auto (07/10/2020 2:46 PM GAS ROLLER OPERATOR) Neutrophil abs 6.6(H) 1.7 - 6.5 K/cumm [facility] Imm gran abs 0.1 0.0 - 0.1 K/cumm [facility] Lymphocyte abs 1.9 0.8 - 3.3 K/cumm [facility] Monocyte abs 0.6 0.2 - 0.8 K/cumm [facility] Eosinophil abs 0.4 0.0 - 0.5 K/cumm [facility] Basophil abs 0.1 0.0 - 0.1 K/cumm [facility] Neutrophil pct 69.0 % [facility] Comment: Interpretive Data Percent cell count reference ranges are not reported, since discordance with absolute values may lead to misinterpretation of CBC data. Current Interpretive Data was last revised on 2017. Imm gran pct 0.5 % ANN Comment: Interpretive Data Percent cell count reference ranges are not reported, since discordance with absolute values may lead to misinterpretation of CBC data. Current Interpretive Data was last revised on 2017. Lymphocyte pct 19.2 % [facility] Comment: Interpretive Data Percent cell count reference ranges are not reported, since discordance with absolute values may lead to misinterpretation of CBC data. Current Interpretive Data was last revised on 2017. Monocyte pct 6.6 % [facility] Comment: Interpretive Data Percent cell count reference ranges are not reported, since discordance with absolute values may lead to misinterpretation of CBC data. Current Interpretive Data was last revised on 2017. Eosinophil pct 3.8 % [facility] Comment: Interpretive Data Percent cell count reference ranges are not reported, since discordance with absolute values may lead to misinterpretation of CBC data. Current Interpretive Data was last revised on 2017. Basophil pct 0.9 % [facility] Comment: Interpretive Data Percent cell count reference ranges are not reported, since discordance with absolute values may lead to misinterpretation of CBC data. Current Interpretive Data was last revised on 2017. Blood specimen (specimen) 07/10/2020 2:46 PM GAS ROLLER OPERATOR 07/10/2020 7:22 PM GAS ROLLER OPERATOR Bere Su NP LAB BLOOD ORDERABLES Final Result [facility] [address] Department [place] [address] * (ABNORMAL) CBC with auto differential (07/10/2020 2:46 PM GAS ROLLER OPERATOR) WBC 9.6 3.8 - 9.9 K/cumm [facility] Hgb 9.4(L) 11.9 - 15.5 g/dL [facility] Hct 31.3(L) 35.6 - 45.5 % [facility] Plt 264 150 - 400 K/cumm [facility] MPV 10.0 9.1 - 12.3 fL [facility] RBC 3.74(L) 3.90 - 5.20 M/cumm [facility] MCV 83.7 81.3 - 96.4 fL [facility] MCH 25.1(L) 27.1 - 33.3 pg [facility] MCHC 30.0(L) 32.3 - 35.7 g/dL [facility] RDW CV 15.0(H) 11.1 - 14.9 % [facility] RDW SD 45.9 35.7 - 48.1 fL [facility] NRBC abs 0.00 0.00 - 0.01 K/cumm [facility] Blood specimen (specimen) 07/10/2020 2:46 PM GAS ROLLER OPERATOR 07/10/2020 7:22 PM GAS ROLLER OPERATOR Bere Su NP LAB [place]LOOD [place] [address] [address] Department [place] [address] * (ABNORMAL) Comprehensive metabolic panel (07/10/2020 2:46 PM GAS ROLLER OPERATOR) Sodium 140 135 - 145 mmol/L [facility] Potassium, pl 4.3 3.3 - 4.9 mmol/L [facility] Chloride 100 97 - 110 mmol/L [facility] CO2 24 22 - 32 mmol/L [facility] Anion gap 16(H) 2 - 15 mmol/L [facility] BUN 23 8 - 25 mg/dL [facility] Creatinine 1.79(H) 0.60 - 1.10 mg/dL [facility] Glucose 190 70 - 199 mg/dL [facility] Comment: Interpretive Data Fasting glucose >/= 126 [...] Calcium 9.8 8.5 - 10.3 mg/dL [facility] Bilirubin, total 0.4 0.1 - 1.2 mg/dL [facility] Protein, pl 7.3 6.5 - 8.5 g/dL [facility] Albumin 3.9 3.5 - 5.0 g/dL [facility] Alk phos 58 40 - 130 Units/L [facility] ALT 27 7 - 45 Units/L [facility] AST 37 10 - 45 Units/L [facility] Blood specimen (specimen) 07/10/2020 2:46 PM GAS ROLLER OPERATOR 07/10/2020 7:22 PM GAS ROLLER OPERATOR us Bere DuenasRamo Su NP LAB BLOOD ORDERABLES Final Result Performing Organization Address City/State/ZIP [place] Phone Number ANN [phone] Department [place] [address] * Lipid panel (07/10/2020 2:46 PM GAS ROLLER OPERATOR) Cholesterol 136 30 - 199 mg/dL [facility] Comment: Interpretive Data Ages < or = [...] Interpretive Data was last revised on 2018. Triglycerides 118 <=149 mg/dL [facility] Comment: Interpretive Data Ages < or = [...] Interpretive Data was last revised on 2018. HDL 50 >=40 mg/dL ANN MENDES Comment: Interpretive Data Ages < or = [...] Interpretive Data was last revised on 2018. LDL, calculated 62 <=129 mg/dL ANN MENDES Comment: Interpretive Data Ages < or = [...] Interpretive Data was last revised on 2018. Non-HDL Cholesterol 86 mg/dL ANN MENDES Comment: Interpretive Data Ages < or = [...] Interpretive Data was last revised on 2018. Chol/HDL ratio 3 ANN Blood specimen (specimen) 07/10/2020 2:46 PM GAS ROLLER OPERATOR 07/10/2020 7:22 PM GAS ROLLER OPERATOR Bere Su NP LAB BLOOD ORDERABLES Final Result Performing Organization Address [facility] Phone Number ANN [phone] [place] [address] * (ABNORMAL) Hemoglobin A1c (07/10/2020 2:46 PM GAS ROLLER OPERATOR) Hgb A1C 7.6(H) 4.0 - 5.6 % ANN Estimated Average Glucose 171 mg/dL ANN Comment: The ADA recommends reporting an estimated Average Glucose (eAG) with all Hemoglobin A1c results using the equation derived from a study of 507 normal and diabetic adults. ??Minority populations were underrepresented and children were not included. ?? (Diabetes Care 31:0522-2645, 2008). ??The eAG is not equivalent to a fasting glucose. Blood specimen (specimen) 07/10/2020 2:46 PM GAS ROLLER OPERATOR 07/10/2020 7:22 PM GAS ROLLER OPERATOR Bere Su NP LAB BLOOD ORDERABLES Final Result Performing Organization Address [facility] de Phone Number ANN [phone] [employer] [place], [place] [id number] documented in this encounter Visit Diagnoses Diagnosis Controlled type 2 diabetes mellitus with diabetic polyneuropathy, without long- term current use of insulin (HCC) documented in this encounter Care Teams Forest Technology Professor Relationship Specialty Start Date End Date Lalito England MD [address] [place] [address] PCP - General 08/03/19 documented as of this encounter
--- OUTSIDE RECORDS SUMMARY | 2024-07-11 22:40 | XMS_ITS | Encounter Summary ---
Author Organization [facility] Address [address] [facility] [address] [place] [address] Care Team Providers Care Cytology Teacher Name Role Phone Lalito England MD Primary Care Provider [phone] [phone] Encounter Details Date Type Department Care Team (Late st Contact Info) Description 04/05/2020 Orders Only [facility] [address] [place] [address] Lalito England MD [address] [address] Controlled type 2 diabetes mellitus with hyperglycemia, without long-term current use of insulin ([facility]) (Primary Dx) Social History Tobacco Use Types Packs/Day Years Used Date Smoking Tobacco: Never Smokeless Tobacco: Never Alcohol Use Standard Drinks/Week Comments Yes 0 (1 standard drink = 0.6 oz pur e alcohol) occasional PHQ-2 Answer Date Recorded PHQ-2 Score 0 08/02/2019 Comments No Sex and Gender Information Value Date Recorded Sex Assigned at Not on file 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 Triglycerides 149 <=149 mg/dL ANN MENDES Comment: Interpretive Data Ages [...] Data was last revised on 2018. HDL 40 >=40 mg/dL ANN MENDES Comment: Interpretive Data [...] was last revised on 2018. LDL, calculated 49 <=129 mg/dL ANN MENDES Comment: Interpretive Data [...] was last revised on 2018. Non-HDL Cholesterol 79 mg/dL ANN MENDES Comment: Interpretive Data Ages [...] last revised on 2018. Chol/HDL ratio 3 [facility] Blood specimen (specimen) 04/05/2020 2:04 PM CDT 04/05/2020 4:19 PM CDT Lalito England MD LAB BLOOD ORDERABLES Jessica l Result Performing Organization Address [facility]/ZIP Co de Phone Number ANN MENDES [address] [place] [address] * (ABNORMAL) CBC with auto differential (04/05/2020 2:04 PM CDT) WBC 9.9 3.8 - 9.9 K/cumm [facility] Hgb 9.6(L) 11.9 - 15.5 g/dL [facility] Hct 31.7(L) 35.6 - 45.5 % [facility] Plt 224 150 - 400 K/cumm [facility] MPV 10.2 9.1 - 12.3 fL [facility] RBC 3.67(L) 3.90 - 5.20 M/cumm [facility] MCV 86.4 81.3 - 96.4 fL [facility] MCH 26.2(L) 27.1 - 33.3 pg [facility] MCHC 30.3(L) 32.3 - 35.7 g/dL [facility] RDW CV 15.9(H) 11.1 - 14.9 % [facility] RDW SD 50.0(H) 35.7 - 48.1 fL [facility] NRBC abs 0.00 0.00 - 0.01 K/cumm [facility] Blood specimen (specimen) 04/05/2020 2:04 PM CDT 04/05/2020 4:19 PM CDT Lalito England MD LAB BLOOD ORDERABLES Jessica l Result Performing Organization Address City/[facility]/ZIP Co de Phone Number ANN MENDES [address] Department of [employer] [place], [place] [id number] * (ABNORMAL) Hemoglobin A1c (04/05/2020 2:04 PM CDT) Pathologist [facility] Hgb A1C 7.6(H) 4.0 - 5.6 % [facility] Estimated Average Glucose 171 mg/dL [facility] Comment: The ADA recommends reporting an estimated Average Glucose (eAG) with all Hemoglobin A1c results using the equation derived from a study of 507 normal and diabetic adults. ??Minority populations were underrepresented and children were not included. ?? (Diabetes Care 31:8321-4152, 2007). ??The eAG is not equivalent to a fasting glucose. Blood specimen (specimen) 04/05/2020 2:04 PM CDT 04/05/2020 4:19 PM CDT us Lalito England MD LAB BLOOD ORDERABLES Jessica reynolds Result [facility] [address] Department [place] [address] * (ABNORMAL) Comprehensive metabolic panel (04/05/2020 2:04 PM CDT) [facility] Sodium 142 135 - 145 mmol/L [facility] Potassium, pl 4.2 3.3 - 4.9 mmol/L [facility] Chloride 100 97 - 110 mmol/L [facility] CO2 28 22 - 32 mmol/L [facility] Anion gap 14 2 - 15 mmol/L [facility] BUN 24 8 - 25 mg/dL [facility] Creatinine 1.52(H) 0.60 - 1.10 mg/dL [facility] Glucose 123 70 - 199 mg/dL [facility] Comment: Interpretive Data Fasting glucose >/= [...] interpretive data was last revised 2017. Calcium 10.3 8.5 - 10.3 mg/dL [facility] Bilirubin, total 0.5 0.1 - 1.2 mg/dL [facility] Protein, pl 7.1 6.5 - 8.5 g/dL [facility] Albumin 3.9 3.5 - 5.0 g/dL [facility] Alk phos 52 40 - 130 Units/L [facility] ALT 23 7 - 45 Units/L [facility] AST 30 10 - 45 Units/L [facility] Blood specimen (specimen) 04/05/2020 2:04 PM CDT 04/05/2020 4:19 PM CDT us Lalito England MD LAB BLOOD ORDERABLES Jessica l Result ANN [address] Department [place] [address] documented in this encounter Visit Diagnoses Diagnosis Controlled type 2 diabetes mellitus with hyperglycemia, without long-term current use of insulin (HCC)- Primary documented in this encounter Care Teams Cytology Teacher Relationship Specialty Start Date End Date [place] [address] [place] [address] PCP - General 08/03/19 documented as of this encounter
--- OUTSIDE RECORDS SUMMARY | 2024-07-11 22:40 | XMS_ITS | Encounter Summary ---
Author Organization [facility] Address [address] [facility] [address] [place] [address] Care Team Providers Care Knockdown Worker Name Role Phone Lalito England MD Primary Care Provider [phone] [phone] Reason for Referral * Diagnostic Imaging (Routine) - Closed Specialty Diagnoses / Procedures Referred By Contac t Referred To Contact Diagnoses Osteoporosis, post-menopausal Procedures Dexa Axial Skeleton Bone Density 1 Or 2 Site Lalito England MD [address] [place], [place] [address] [address] Phone: tel: fax: [address] [address] Referral ID Status Reason Start Date Expiration Date Visits Re quested Visits Authorized [id number] Closed 05/18/2021 06/17/2022 1 1 Encounter Details Date Type Department Care Team (Late st Contact Info) Description 05/18/2021 Orders Only [facility] [address] [place] [address] Devi George MA Osteoporosis, post-menopausal (Primary Dx) Social History Tobacco Use Types [...] on file 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 DEXA AXIAL SKELETON BONE DENSITY 1 OR MORE SITES REASON FOR STUDY: ?71 y/o ??year old ??F with given history of screening. Hand Rug Cleaner/Model: ?? [employer] SL (S/N [id number]) CLINICAL INFORMATION: ??Current height: ??66 inches ? [...] AM T: ??05/23/2021 9:33 AM Report ID: [id number] Reading Location: [facility] Procedure Note Maryann Douglas MD - 05/23/2021 EXAM DESCRIPTION: DEXA AXIAL SKELETON BONE DENSITY 1 OR MORE SITES REASON FOR STUDY: 71 y/o year old F with given history ofscreening. Hand Rug Cleaner/Model: [employer] SL (S/N [id number]) CLINICAL INFORMATION: Current height: 66 inches Maximum [...] Maryann Douglas M.D. TB: TB Report ID: [id number] Reading Location: [facility] Lalito Engladn MD IM DXA PROCEDURES Final Result documented in this encounter Visit Diagnoses Diagnosis Osteoporosis, post-menopausal- Primary Senile osteoporosis Osteoporosis, post-menopausal Senile osteoporosis documented in this encounter Care Teams Knockdown Worker Relationship Specialty Start Date End Date Lalito England MD [address] [place] [address] PCP - General 08/03/19 documented as of this encounter
--- OUTSIDE RECORDS SUMMARY | 2024-07-11 22:40 | XMS_ITS | Encounter Summary ---
Author Organization [facility] Address [address] [facility] [address] [place] [address] Care Team Providers Care Patient Registration Rep Name Role Phone Lalito England MD Primary Care Provider [phone] [phone] Reason for Visit * Reason Onset Date Comments Vaccine Registration 09/04/2020 Encounter Details Date Type Department Care Team (Late st Contact Info) Description 09/04/2020 Telephone [facility] [address] [place] [address] Kaila Lyons MA Vaccine Registration Social History Tobacco Use Types Packs/Day Years [...] on file 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 England. The patient is already registered through [facility] to get the vaccine. I did inform her that she could register through [facility]. I gave her their number to call and ask them about that. AGE TESTER documented in this encounter Plan of Treatment Not on file documented as of this encounter Visit Diagnoses Not on filedocumented in this encounter Care Teams Patient Registration Rep Relationship Specialty Start Date End Date Lalito England MD [address] [place] [address] PCP - General 08/03/19 documented as of this encounter
--- OUTSIDE RECORDS SUMMARY | 2024-07-11 22:40 | XMS_ITS | Encounter Summary ---
Author Organization [facility] Address [address] [place] [address] Care Team Providers Care Director Of Hemophilia Name Role Phone Clayton Sandoval MD Primary Care Provider + Encounter Details Date Type Department Care Team (Late st Contact Info) Description 12/22/2018 10:39 AM CDT Anesthesia Event [facility] [address] [place] [address] Hossein Goode MD PhD [address] [place] [address] Shannan Lott CRNA [address] [place] [address] Anesthesia Record Procedure Summary Procedure Name Responsible Anesthesiologist Anesthesia Start Time Anesthesia Stop Time ESOPHAGOGASTRODUODENOSCOPY BIOPSY Hossein Goode MD PhD 12/22/18 1039 12/22/18 1045 Events Date Time Event Comment 12/22/2018 1022 1029 In Room 1039 An Start 1039 An Start Data 1039 Start Supplemental O2 1040 Patient Positioned Laterally 1040 An Induction The patient was reevaluated immediately before moderate or deep sedation use and before anesthesia induction. 1040 Anesthesia Ready 1045 an stop data 1045 Handoff to RN I completed my handoff [...] disposition at the time of handoff: PACU 1045 An Stop 1045 Release from care 1048 Out of Room Meds Name Total lidocaine (cardiac) syringe 2 % 100 mg propofol 80 mg sodium chloride 0.9% infusion 400 mL * Agents Name O2 * Blood No blood administrations on file. Lines, Drains, and Airways Type Details Placement Removal Peripheral IV Placement Date: 12/12 08/01; Placement Time: 09; Catheter Size: 20 G; Orientation: Right; Location: Antecubital; Site Prep: Chlorhexidine; Technique: Anatomical landmarks; Inserted by: Laureen Diane RN; Insertion Attempts: 1; Patient Tolerance: Tolerated well; Removal Date: 12/22/18; Removal Time: 1128; Removal Reason: Therapy completed 12/22/18942 by Laureen Diane RN 12/22/181128 by Melida Montgomery RN documented in this encounter Social History Tobacco Use Types Packs/Day Years Used Date Smoking Tobacco: Never Smokeless Tobacco: Never Alcohol Use Standard Drinks/Week Comments Yes 0 (1 standard drink = 0.6 oz pur e alcohol) occasional Comments No Sex and Gender Information Value Date Recorded Sex Assigned at Not on file 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 Gender Identity Not on file Sexual Orientation Not on file documented as of this encounter OR Notes * Anesthesia Postprocedure Evaluation - Alexey Gray CRNA - 12/22/2018 10:45 AM CDT Patient: Criss Ly Procedure Summary Date: 12/22/18 Room / Location: [facility]COPY ROOM 1 / [facility] Anesthesia Start: 1039 Anesthesia Stop: 1045 Procedure: ESOPHAGOGASTRODUODENOSCOPY (N/A ) Diagnosis: Persistent vomiting (Persistent vomiting [R11.10]) Provider: Karlene Ramirez MD Responsible Provider: Hossein Goode MD PhD Anesthesia Type: general/TIVA ASA Status: 3 Anesthesia Type: general/TIVA Last vitals BP 114/59 Pulse 84 Temp 36.7 ??C (98 ??F) (Tympanic) Resp 18 SpO2 99% Anesthesia Post Evaluation Patient location during evaluation: PACU Patient participation: complete - patient participated Level of consciousness: 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 female Procedure(s): ESOPHAGOGASTRODUODENOSCOPY HISTORY Past Medical History Information obtained from: patient and chart. Neurological Neuro/Psych system: negative Cardiovascular + Hypertension Respiratory Pertinent negatives: non-smoker Comments: sarcoidosis Gastrointestinal + GERD - on daily therapy. Renal / + Renal disease - CKD Musculoskeletal/Pain + Osteoarthritis Endocrine / Other + Diabetes mellitus - Diabetes type 2. Outpatient insulin use: current. + Obesity (BMI >30)- morbid obesity (BMI>40). Patient Active Problem List Diagnosis ??? Hyperlipidemia ??? Type 2 diabetes mellitus with stage 3 chronic kidney disease, with long-term current use of insulin (CMS/HCC) ??? Disorder of peripheral nervous system (CMS/HCC) ??? Adiposity ??? Hypertension ??? Fever ??? Arthralgia of hip ??? Adenomatous polyp of colon ??? Sarcoidosis ??? Idiopathic osteoporosis with pathological fracture ??? Healthcare maintenance ??? Medication management ??? Hx of colonic polyps ??? Family hx of colon cancer ??? Persistent vomiting Past Medical History: Diagnosis Date ??? Benign hypertension with CKD (chronic kidney disease) stage III (CMS/HCC) ??? Gastroesophageal reflux disease GERD ??? HX OTHER MEDICAL PMO ??? 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 HX OTHER MEDICAL CMC OA ??? [...] hip arthroplasty left hip; Comments: [facility] TCU unit 02/06 - 02/17/16 for rehabilitation. ??? Hyperlipidemia Hyperlipidemia ??? Hypertension Hypertension ??? Osteoarthritis Osteoarthritis ??? Polyp of colon colon polyps ??? Sarcoidosis Sarcoidosis ??? Type 2 diabetes mellitus (CMS/HCC) Diabetes type 2 ??? Type 2 diabetes mellitus with diabetic autonomic (poly)neuropathy (CMS/HCC) ??? Type 2 diabetes mellitus with hyperglycemia (CMS/HCC) ??? Type II diabetes mellitus with stage 3 chronic kidney disease (CMS/HCC) Past Surgical History: Procedure Laterality Date ??? COLONOSCOPY 09/15/2013 ??? KNEE ARTHROPLASTY Knee replacement ??? LUMBAR [...] REDUCTION MAMMAPLASTY Bilateral 2008 ??? TONSILLECTOMY tonsillectomy OB History 0 Para 0 Term 0 0 AB 0 Living 0 SAB 0 TAB 0 Ectopic 0 Multiple 0 Live Births 0 Allergies Allergen Reactions ??? Hydrocodone Other (See comments) Reaction: migraines, , , can take tylenol HOME MEDICATIONS : albuterol HFA (PROVENTIL HFA,VENTOLIN HFA) 90 mcg/actuation inhaler alendronate (FOSAMAX) 70 mg tablet amLODIPine (NORVASC) 2.5 mg tablet aspirin 81 mg enteric coated tablet qxmkmzw-imxdkejjqbnym-xgguuaaz (EXCEDRIN MIGRAINE) 250-250-65 mg per tablet blood glucose diagnostic (CONTOUR NEXT STRIPS) strip blood glucose diagnostic (CONTOUR NEXT STRIPS) strip blood-glucose meter (CONTOUR NEXT USB METER) misc calcium carbonate-vitamin D3 500 mg(1,250mg) -400 unit tablet cloNIDine (CATAPRES) 0.1 mg tablet fluticasone (FLONASE) 50 mcg/actuation nasal spray furosemide (LASIX) 20 mg tablet gabapentin (NEURONTIN) 300 mg capsule insulin aspart U-100 (NovoLOG) 100 unit/mL injection insulin glargine (LANTUS) 100 unit/mL (3 mL) insulin pen insulin lispro (HumaLOG KwikPen) 100 unit/mL insulin pen irbesartan-hydroCHLOROthiazide (AVALIDE) 300-12.5 mg per tablet lancets (MICROLET LANCET) misc metFORMIN (GLUCOPHAGE) 500 mg tablet montelukast (SINGULAIR) [address] (PROTONIX) 40 mg EC tablet pen needle, diabetic (BD INSULIN PEN NEEDLE UF MINI) 31 gauge x 3/16 needle simvastatin (ZOCOR) 40 mg tablet traMADol (ULTRAM) 50 mg tablet zoledronic wgpm-mkabrdgd-gfcir (RECLAST) 5 mg/100 mL piggyback amoxicillin (AMOXIL) 500 mg tablet/capsule biotin 10,000 mcg capsule No current facility-administered medications for this visit. No current outpatient medications on file. Facility-Administered Medications Ordered in Other Visits: ??? ondansetron (ZOFRAN) injection 4 mg, 4 mg, intravenous, Q30 Min PRN ??? sodium chloride 0.9% infusion, 30 mL/hr, intravenous, Continuous ??? sodium chloride 0.9% infusion, 125 mL/hr, intravenous, Continuous Social History Tobacco Use Smoking Status Never Smoker Smokeless Tobacco Never Used Substance and Sexual Activity Alcohol Use Yes Comment: occasional Substance and Sexual Activity Drug Use Never Family History Problem Relation Age of Onset ??? Heart disease Father Heart disease; ??? Heart failure Father CHF; Cause of : CHF ??? Diabetes Mother Diabetes mellitus; ??? Hypertension Mother Hypertension; ??? Diabetes Brother Diabetes mellitus; ??? Lymphoma Brother Cancer -lymphoma; PAT Physical Exam There were no vitals filed for this visit. PT: No results found for requested labs within last 720 hours. INR: No results found for requested labs within last 720 hours. APTT: No results found for requested labs within last 720 hours. Hgb A1C: No results found for requested labs within last 720 hours. CBC RBC: No results found for requested labs within last 720 hours. RDW: No results found for requested labs within last 720 hours. MCHC: No results found for requested labs within last 720 hours. MCH: No results found for requested labs within last 720 hours. MCV: No results found for requested labs within last 720 hours. Hct: No results found for requested labs within last 720 hours. Hgb: No results found for requested labs within last 720 hours. WBC: No results found for requested labs within last 720 hours. MPV: No results found for requested labs within last 720 hours. Platelets: No results found for requested labs within last 720 hours. RDW CV: No results found for requested labs within last 720 hours. RDW Sd: No results found for requested labs within last 720 hours. BMP Glucose: No results found for requested labs within last 720 hours. Calcium: No results found for requested labs within last 720 hours. Sodium: No results found for requested labs within last 720 hours. Potassium: No results found for requested labs within last 720 hours. CO2: No results found for requested labs within last 720 hours. Chloride: No results found for requested labs within last 720 hours. BUN: No results found for requested labs within last 720 hours. Creatinine: No results found for requested labs within last 720 hours. DOS Physical Exam Medical history, medications, and allergies reviewed. Attestation: This PAT evaluation 12/22/2018. Airway Exam: Mallampati: II TM distance: >4 Jaw ROM: full Cardiovascular Exam: Rate: regular Rhythm: regular Pulmonary Exam: LCTA EENT Exam: trachea midline Dental Exam: Appears intact Skin Exam: Skin is warm. Turgor is normal. Anesthesia Plan ASA 3 Planned anesthesia: General/TIVA Induction: Induction: intravenous. Postoperative Plan: No plan for postoperative opioid use. No postoperative mechanical ventilation intended. Patient's planned disposition post procedure is Outpatient. Informed Consent: Discussed plan with attending. Anesthesia plan and risks discussed with patient. [...] Action Action Date Dose Rate Site lidocaine (cardiac) (XYLOCAINE) preservative free injection intravenous, As needed, Starting on Fri12/22/18 at 1040, Anesthesia Intra-op, Indications: Ventricular ArrhythmiasIndications:Ventri cular Arrhythmias Given 12/22/2018 10:40 AM CDT 100 mg propofol (DIPRIVAN) IV intravenous, As needed, Starting on Fri12/22/18 at 1040, Anesthesia Intra-op Given 12/22/2018 10:40 AM CDT 80 mg sodium chloride 0.9% infusion 30 mL/hr, intravenous, Continuous, Starting on Fri12/22/18 at 1000, Pre-Procedure (GI) Rate/Dose Verify 12/22/2018 10:33 AM CDT New Bag 12/22/2018 9:44 AM CDT 30 mL/hr 30 mL/hr Ri ght Antecubital documented in this encounter Care Teams Director Of Hemophilia Relationship Specialty Start Date End Date Clayton Sandoval MD [address] [place] [place] [address] PCP - General 10/11/16 08/02/19 documented as of this encounter
--- OUTSIDE RECORDS SUMMARY | 2024-07-11 22:40 | XMS_ITS | Encounter Summary ---
Author Organization [facility] Address [address] [facility] [address] [place] [address] Care Team Providers Care Inspector Technician Name Role Phone Lalito England MD Primary Care Provider [phone] Reason for Visit * Reason Onset Date Comments Test Results 08/09/2020 mammogram Encounter Details Date Type Department Care Team (Late st Contact Info) Description 08/09/2020 Telephone [facility] [address] [place] [address] Lalito England MD [address] [place] [address] Test Results (mammogram) Social History Tobacco Use Types Packs/Day [...] on file 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 Please notify patient of results. F/U as scheduled and/or as needed. NE CARGO SURVEYOR documented in this encounter Plan of Treatment Not on file documented as of this encounter Visit Diagnoses Not on filedocumented in this encounter Care Teams Inspector Technician Relationship Specialty Start Date End Date Lalito England MD [address] [place] [address] PCP - General 08/03/19 documented as of this encounter
--- OUTSIDE RECORDS SUMMARY | 2024-07-11 22:40 | XMS_ITS | Encounter Summary ---
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 This has been cancelled at [place] and re-sent to [place]. documented in this encounter Plan of Treatment Not on file documented as of this encounter Visit Diagnoses Not on filedocumented in this encounter Discontinued Medications Medication Sig Discontinue Reason Start Date End Da te pen needle, diabetic (BD Ultra-Fine Mini Pen Needle) 31 gauge x 3/16 needle 1 needle as directed Reorder 01/31/2020 02/04/2020 documented as of this encounter Care Teams Template Worker Relationship Specialty Start Date End Date Lalito England MD [address] [place] [address] PCP - General 08/03/19 documented as of this encounter
--- OUTSIDE RECORDS SUMMARY | 2024-07-11 22:40 | XMS_ITS | Encounter Summary ---
Author Organization [facility] Healthcare Address [address] [place] [address] Care Team Providers Care House Director Name Role Phone Lalito England MD Primary Care Provider [phone] Reason for Referral * Diagnostic Imaging (Routine) - Closed Specialty Diagnoses / Procedures Referred By Giuliana boone Referred To Contact Diagnoses Encounter for screening mammogram for malignant neoplasm of breast Procedures Screening Mammogram Bilateral W Cedric Screening Mammogram, Self [address] [address] Referral ID Status Reason Start Date Expiration Date Visits Re quested Visits Authorized [id number] Closed 06/14/2020 07/14/2021 1 1 IATIVE SENIOR NP Reason for Visit * Diagnostic Imaging (Routine) - Closed Specialty Diagnoses / Procedures Referred By Giuliana boone Referred To Contact Diagnoses Encounter for screening mammogram for malignant neoplasm of breast Procedures Screening Mammogram Bilateral W Cedric Screening Mammogram, Self [address] [address] Referral ID Status Reason Start Date Expiration Date Visits Re quested Visits Authorized [id number] Closed 06/14/2020 07/14/2021 1 1 Encounter Details Date Type Department Care Team (Latest Contact Info) Description 08/08/2020 3:07 PM PALLIATIVE SENIOR NP - 08/08/2020 11:59 PM PALLIATIVE SENIOR NP Hospital Encounter [facility] [address] [place] [id number] Screening Mammogram, Self Encounter for screening mammogram for malignant neoplasm [...] on file Legal Sex Female 11:52 PM PALLIATIVE SENIOR NP Gender Identity Not on file Sexual Orientation [...] 1 tablet (81 mg total) by mouth labelling machine operator before breakfast 4 aspirin-acetaminop hen-caffeine (EXCEDRIN MIGRAINE) [...] 1 03/23/2020 1 metFORMIN (GLUCOPHAGE) 500 mg tablet Take [...] Associated Diagnosis Comments SCREENING MAMMOGRAM BILATERAL W CEDRIC Schedule Routine, Read Routine (OP Routine) 08/08/2020 3:28 PM PALLIATIVE SENIOR NP Encounter for screening mammogram for malignant neoplasm of breast documented in this encounter Results * Screening Mammogram Bilateral W Cedric (08/08/2020 3:28 PM PALLIATIVE SENIOR NP) Anatomical Region Laterality Modality Breast Bilateral Mammography 08/08/2020 4:27 PM PALLIATIVE SENIOR NP Impressions 08/08/2020 4:29 PM PALLIATIVE SENIOR NP There is no mammographic evidence of malignancy. A 1 year screening mammogram is recommended. BI-RADS: 2 - Benign. The patient will be entered into a reminder system with a target due date of 1 year for her next mammogram. Electronically signed by: MD Diandra Snyder 08/08/2020 4:29 PM PALLIATIVE SENIOR NP EXAMINATION: SCREENING MAMMOGRAM BILATERAL W CEDRIC ORDERING HEALTHCARE PROVIDER: SELF SCREENING MAMMOGRAM HISTORY: Routine screening mammography. COMPARISON: ??11/04/2017, 07/10/2016, 04/15/2015 and 09/29/2013 TECHNIQUE: CC and MLO views of the bilateral breasts were obtained with digital technique using breast tomosynthesis with C view. Computer aided detection was utilized. FINDINGS: DENSITY: There are scattered fibroglandular elements in the bilateral breasts. BREASTS: There are postsurgical changes within both breasts from prior reduction mammoplasty. ??There are benign bilateral vascular calcifications. ??There are no suspicious masses, suspicious calcifications, or other suspicious findings in either breast. There has been no suspicious interval change. us Self Screening Mammogram IMG MAMMO PROCEDURES Fi nal Result documented in this encounter Visit Diagnoses Diagnosis Encounter for screening mammogram for malignant neoplasm of breast documented in this encounter Care Teams House Director Relationship Specialty Start Date End Date Lalito England MD [address] [place] [address] PCP - General 08/03/19 documented as of this encounter
--- OUTSIDE RECORDS SUMMARY | 2024-07-11 22:40 | XMS_ITS | Encounter Summary ---
Author Organization [facility] Address [address] [place] [address] Care Team Providers Care Multisensor Intelligence Officer Name Role Phone Lalito England MD Primary Care Provider [phone] Encounter Details Date Type Department Care Team (Late st Contact Info) Description 01/30/2021 ACO Outreach [facility] Accountable Care Organization [address] [place] [id number] Amanda Farah [address] [facility] [address] [place] [address] Type 2 diabetes mellitus with stage 3 chronic kidney disease, with long-term current use of insulin, unspecified whether stage 3a or 3b CKD (HCC) (Primary Dx) Social History Tobacco Use [...] points, staff should administer the PHQ-9) 0 10/20/2020 Comments No Sex and Gender Information Value Date Recorded Sex Assigned at Not on file 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 Gender Identity Not on file Sexual Orientation Not on file documented as of this encounter Plan of Treatment Scheduled Orders Name Type Priority Associated Diagnoses Orde r Schedule POCT hemoglobin A1c Point of Care Testing Routine Type 2 diabetes mellitus with stage 3 chronic kidney disease, with long-term current use of insulin, unspecified whether stage 3a or 3b CKD (CMS/HCC) Ordered: 01/30/2021 documented as of this encounter Visit Diagnoses Diagnosis Type 2 diabetes mellitus with stage 3 chronic kidney disease, with long-term current use of insulin, unspecified whether stage 3a or 3b CKD (HCC)- Primary documented in this encounter Care Teams Multisensor Intelligence Officer Relationship Specialty Start Date End Date Lalito England MD [address] [place] [address] PCP - General 08/03/19 documented as of this encounter
--- OUTSIDE RECORDS SUMMARY | 2024-07-11 22:40 | XMS_ITS | Encounter Summary ---
Author Organization [facility] Healthcare Address [address] [place] [address] Care Team Providers Care Schedule Manager Name Role Phone Clayton Sandoval MD Primary Care Provider + Encounter Details Date Type Department Care Team (Latest Contact Info) Description 12/22/2018 10:05 AM CDT - 12/22/2018 10:35 AM CDT Surgery [facility] [address] [place] [address] Karlene Ramirez MD [address] [place] [id number] ESOPHAGOGASTRODUODENOSCOPY BIOPSY Surgery Details Date/Time Status Location OR Service Patient Class Case Class Case Type Trauma Case? 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 Gender Identity Not on file Sexual Orientation Not on file documented as of this encounter Last Filed Vital Signs Vital Sign Reading Time Taken Comments Blood Pressure 114/59 12/22/2018 9:25 AM CDT Pulse 84 12/22/2018 9:25 AM CDT Temperature 36.7 ??C (98 ??F) 12/22/2018 9:25 AM CDT Respiratory Rate 18 12/22/2018 9:25 AM CDT Oxygen Saturation 99% 12/22/2018 9:25 AM CDT Inhaled Oxygen Concentration - - Weight 114.3 kg (252 lb) 12/22/2018 9:25 AM CDT Height 167.6 cm (5' 6 ) 12/22/2018 9:25 AM CDT Body Mass Index 40.67 12/22/2018 9:25 AM CDT documented in this encounter Medications [...] for wheezing. 3 alendronate (FOSAMAX) 70 mg tablet Take 70 mg by mouth every 7 days Take in the morning with a full glass of water, on an empty stomach, and do not take anything else by mouth or lie down for the next 30 min. 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 2 blood glucose diagnostic (CONTOUR NEXT STRIPS) strip USE ONE STRIP IN METER THREE TIMES A DAY 300 strip 3 07/04/2014 0 blood glucose diagnostic (CONTOUR NEXT STRIPS) strip USE ONE STRIP IN METER THREE TIMES A DAY 300 strip 11 07/04/2014 1 calcium carbonate-vitami n D3 500 mg(1,250mg) -400 unit tablet Take one by mouth two times per day 0 0 08/10/2007 4 cloNIDine (CATAPRES) 0.1 mg tabletIndication s:hypertension Take 0.1 mg by mouth 2 (two) times a day 1/2 tablet by mouth 2xday 0 fluticasone (FLONASE) 50 mcg/actuation nasal spray inhale 2 spray by Intranasal route every day in each nostril 0 05/26/2012 0 furosemide (LASIX) 20 mg tabletIndication s:Edema Take 20 mg by mouth daily 0 gabapentin (NEURONTIN) 300 mg capsule take 2 Capsule by oral route every day 0 0 07/21/2015 1 insulin aspart U-100 (NovoLOG) 100 unit/mL injectionIndicat ions:type 2 diabetes mellitus Inject 35 Units under the skin 3 (three) times a day before meals 0 insulin glargine (LANTUS) 100 unit/mL (3 mL) insulin penIndications:t ype 2 diabetes mellitus Inject 0.44 mL (44 Units total) under the skin daily. 5 pen 3 03/31/2017 0 insulin lispro (HumaLOG KwikPen) 100 unit/mL insulin pen Inject 0.3 mL (30 Units total) under the skin 3 (three) times a day with meals. 81 mL 3 02/03/2017 0 irbesartan-hydro CHLOROthiazide (AVALIDE) 300-12.5 mg per tablet TAKE ONE TABLET BY MOUTH ONCE DAILY 90 3 08/18/2013 0 metFORMIN (GLUCOPHAGE) 500 mg tablet TAKE TWO TABLETS BY MOUTH TWICE A DAY 120 11 06/24/2014 0 montelukast (SINGULAIR) 10 mg tablet take 1 tablet (10MG) by ORAL route every day in the evening 0 09/18/[address] (PROTONIX) 40 mg EC tablet TAKE ONE TABLET BY MOUTH TWICE A DAY 90 3 09/07/2014 0 pen needle, diabetic (BD INSULIN PEN NEEDLE UF MINI) 31 gauge x 3/16 needle 1 needle as directed 300 each 3 12/23/2016 0 simvastatin (ZOCOR) 40 mg tabletIndication s:hyperlipidemia Take 40 mg by mouth nightly 0 traMADol (ULTRAM) 50 mg tablet take 1 tablet by ORAL route every 6 hours as needed 60 2 06/21/2013 2 zol[address] wbsw-tcclfizf-lx ter (RECLAST) 5 mg/100 mL piggyback tud 1 Syringe 0 08/14/2015 0 documented as of this encounter Discharge Disposition Disposition Code Departure Means Destination Discharge to home or self care documented in this encounter H&P Notes * Karlene Ramirez MD - 12/22/2018 10:52 AM CDT History and Physical Date of visit: 12/22/2018 Subjective: Patient is a 68 y.o. female presented for evaluation for nausea and vomiting. Past Medical History: Diagnosis Date ??? Benign hypertension with CKD (chronic kidney disease) stage III (CMS/HCC) ??? Gastroesophageal reflux disease GERD ??? HX OTHER MEDICAL PMO ??? 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 HX OTHER MEDICAL [facility] OA ??? HX OTHER MEDICAL 2008 Discectomy, cervical ??? HX OTHER MEDICAL Fall ??? HX OTHER MEDICAL Left proximal femoral Gamma Nail fixation proximal; Comments: [facility] 07/25/2015 - ??? HX OTHER MEDICAL RTKR 2001.; Comments: [facility] 07/25/2015 - ??? HX OTHER MEDICAL LTKR 2006.; Comments: [facility] 07/25/2015 - ??? HX OTHER MEDICAL Back surgery 2007.; Comments: [facility] 07/25/2015 - ??? HX OTHER MEDICAL Cervical disc surg. 2007.; Comments: [facility] 07/25/2015 - ??? HX OTHER MEDICAL Breast reduction 2009.; Comments: [facility] 07/25/2015 - ??? HX OTHER MEDICAL left hip and leg surgery ??? HX OTHER MEDICAL conversion of previous hip arthroplasty left hip; Comments: [facility] TCU unit 02/06 - 02/17/16 for rehabilitation. ??? Hyperlipidemia Hyperlipidemia ??? Hypertension Hypertension ??? Osteoarthritis Osteoarthritis ??? Polyp of colon colon polyps ??? Sarcoidosis Sarcoidosis ??? Type 2 diabetes mellitus (CMS/HCC) Diabetes type 2 ??? Type 2 diabetes mellitus with diabetic autonomic (poly)neuropathy (CMS/HCC) ??? Type 2 diabetes mellitus with hyperglycemia ([facility]) ??? Type II diabetes mellitus with stage 3 chronic kidney disease ([facility]) Past Surgical History: Procedure Laterality Date ??? [...] Medication Sig Dispense Refill Last Dose ??? alendronate (FOSAMAX) 70 mg tablet Take 70 mg by mouth every 7 days Take in the morning with a full glass of water, on an empty stomach, and do not take anything else by mouth or lie down for thenext 30 min. Past Week at Unknown time ??? amLODIPine (NORVASC) 2.5 mg tablet Take 2.5 mg by mouth daily 12/22/2018 at Unknown time ??? aspirin 81 mg enteric coated tablet Take 81 mg by mouth daily Past Week at Unknown time ??? ixdfvhf-zzfgbsuddqspr-ngyfgxjh (EXCEDRIN MIGRAINE) 250-250-65 mg per tablet Take 1 tablet by mouth every 6 (six) hours as needed. Past Week at Unknown time ??? calcium carbonate-vitamin D3 500 mg(1,250mg) -400 unit tablet Take one by mouth two times per day 0 0 12/21/2018 at Unknown time ??? cloNIDine (CATAPRES) 0.1 mg tablet Take 0.1 mg by mouth 2 (two) times a day 1/2 tablet by [id number] 12/22/2018 at Unknown time ??? fluticasone (FLONASE) 50 mcg/actuation nasal spray inhale 2 spray by Intranasal route every dayin each nostril 0 12/22/2018 at Unknown time ??? furosemide (LASIX) 20 mg tablet Take 20 mg by mouth daily 12/22/2018 at Unknown time ??? gabapentin (NEURONTIN) 300 mg capsule take 2 Capsule by oral route every day 0 0 12/22/2018 at Unknown time ??? insulin aspart U-100 (NovoLOG) 100 unit/mL injection Inject 35 Units under the skin 3 (three) times a day before meals ??? insulin glargine (LANTUS) 100 unit/mL (3 mL) insulin pen Inject 0.44 mL (44 Units total) under the skin daily. (Patient taking differently: Inject 53 Units under the skin daily ) 5 pen 3 12/21/2018 at Unknown time ??? irbesartan-hydroCHLOROthiazide (AVALIDE) 300-12.5 mg per tablet TAKE ONE TABLET BY MOUTH ONCE DAILY 90 3 12/22/2018 at Unknown time ??? metFORMIN (GLUCOPHAGE) 500 mg tablet TAKE TWO TABLETS BY MOUTH TWICE A DAY 120 11 12/21/2018 at Unknown time ??? montelukast (SINGULAIR) 10 mg tablet take 1 tablet (10MG) by ORAL route every day in the evening 0 12/21/2018 at Unknown time ??? pantoprazole DR (PROTONIX) 40 mg EC tablet TAKE ONE TABLET BY MOUTH TWICE A DAY 90 3 12/22/2018 at Unknown time ??? simvastatin (ZOCOR) 40 mg tablet Take 40 mg by mouth nightly 12/21/2018 at Unknown time ??? traMADol (ULTRAM) 50 mg tablet take 1 tablet by ORAL route every 6 hours as needed 60 2 12/21/2018 at Unknown time ??? albuterol HFA (PROVENTIL HFA,VENTOLIN HFA) 90 mcg/actuation inhaler Inhale 2 puffs every 6 (six) hours as needed for wheezing. More than a month at Unknown time ??? blood glucose diagnostic (CONTOUR NEXT STRIPS) strip USE ONE STRIP IN METER THREE TIMES A DAY 300 strip 3 Unknown at Unknown time ??? blood glucose diagnostic (CONTOUR NEXT STRIPS) strip USE ONE STRIP IN METER THREE TIMES A DAY 300 strip 11 Unknown at Unknown time ??? blood-glucose meter (CONTOUR NEXT USB METER) misc test as directed 1 each 0 Unknown at Unknown time ??? insulin lispro (HumaLOG KwikPen) 100 unit/mL insulin pen Inject 0.3 mL (30 Units total) under the skin 3 (three) times a day with meals. (Patient taking differently: Inject 32 Units under the skin 3 (three) times a day with meals ) 81 mL 3 09/27/2018 at Unknown time ??? lancets (MICROLET LANCET) misc test by fingerstick route 3 times daily 300 each 3 Taking ??? pen needle, diabetic (BD INSULIN PEN NEEDLE UF MINI) 31 gauge x 3/16 needle 1 needle as directed 300 each 3 Taking ??? zoledronic bqfs-vnoyrmkw-tvvur (RECLAST) 5 mg/100 mL piggyback tud 1 Syringe 0 More than a month at Unknown time Allergies Allergen Reactions ??? Hydrocodone Other (See [...] Diabetes mellitus; ??? Lymphoma Brother Cancer -lymphoma; Physical Exam: Patient is awake and answers well. Eyes: no jaundice. Lungs: CTA anteriorly. ENT: no mouth ulcers. Abdomen: soft, no distention, no tenderness, bowel sounds positive. Extremities: no edema. Skin: no rash. GI IMPRESSION: 1. Nausea and vomiting GI PLAN/RECOMMENDATIONS: 1. EGD Karlene Ramirez MD documented in this encounter Procedure Notes * Karlene Ramirez MD - 12/22/2018 10:21 AM CDTAssociated Order(s): EGD [facility] Patient Name: Criss Ly Procedure Date: 12/22/2018 10:21 AM Date of : 1950 Admit Type: Outpatient Age: 68 Gender: Female Attending MD: Clarice MyersD. Room: [facility] ENDOSCOPY ROOM 1 Note Status: Finalized Patient Profile: 68 WF with intermittent episdoes of nausea and vomiting. Procedure: Upper GI endoscopy Indications: Nausea with vomiting Referring MD: Clayton Sandoval M.D. Providers: Karlene Ramirez M.D. Impression: - Normal examined duodenum. - Erythematous mucosa in the prepyloric region of the stomach. Biopsied. - Normal esophagus. Recommendation: - Continue present medications. - Return to GI office for further evaluation if needed. Medicines: Monitored Anesthesia Care Complications: No immediate [...] Prior Anticoagulants: The patient has taken no previous anticoagulant or antiplatelet agents. ASA Grade Assessment: III - A patient with severe systemic disease. After reviewing the risks and benefits, the patient was deemed in satisfactory condition to undergo the procedure. The benefits, risks, and alternatives to the procedure and sedation were discussed and informed consent was obtained. The scope was passed under direct vision. The Endoscope GIF-H190 [id number] was introduced through the mouth, and advanced to the second part of duodenum. The upper GI endoscopy was accomplished without difficulty. The patient tolerated the procedure well. Findings: The examined duodenum was normal. Mucosal pattern was normal. Localized mildly erythematous mucosa without bleeding was found in the prepyloric region of the stomach. Likely none specific. Biopsies were taken with a cold forceps for Helicobacter pylori testing using CLOtest. Retroflexion in the stomach and the gastric cardia were normal. The examined esophagus body was normal. The GE junction was normal. Electronically signed by Karlene Ramirez M.D. Karlene Ramirez M.D. 12/22/2018 10:59:31 AM Number of Addenda: 0 Note Initiated On: 12/22/2018 10:21 AM Procedure Code(s): --- Professional --- 03988, Esophagogastroduodenoscopy, flexible, transoral; with biopsy, single or multiple Diagnosis Code(s): --- Professional --- K31.89, Other diseases of stomach and duodenum R11.2, Nausea with vomiting, unspecified CPT copyright 2017 [employer]. All rights reserved. The codes documented in this report are preliminary and upon forging press setter up review may be revised to meet current compliance requirements. Recognized by the [employer] for promoting quality in endoscopy documented in this encounter Miscellaneous Notes * Perioperative Nursing Note - Melida Montgomery RN - 12/22/2018 11:[address] Raimrez in to discuss test results with patient and family. Tolerating a drink well. documented in this encounter Plan of Treatment Not on file documented as of this encounter Procedures Procedure Name Priority Date/Time Associated Diagnosis Comments ESOPHAGOGASTRODUODENOSCOPY BIOPSY 12/22/2018 10:24 AM CDT Persistent vomiting EGD 12/22/2018 10:21 AM CDT POCT GLUCOSE DEVICE Routine 12/22/2018 9:37 AM CDT documented in this encounter Results * EGD (12/22/2018 10:21 AM CDT) Anatomical Region Laterality Modality Other Narrative Procedure Note Karlene Ramirez MD - 12/22/2018 10:21 AM CDT [facility] Patient Name: Criss Ly Procedure Date: 12/22/2018 10:21 AM Date of : 1950 Admit Type: Outpatient Age: 68 Gender: Female Attending MD: Karlene Ramirez M.D. Room: [facility] ENDOSCOPY ROOM 1 Note Status: Finalized Patient Profile: 68 WF with intermittent episdoes of nausea andvomiting. Procedure: Upper GI endoscopy Indications: Nausea with vomiting Referring MD: Clayton Sandoval M.D. Providers: Karlene Ramirez M.D. Impression: - Normal examined duodenum. - Erythematous mucosa in the prepyloric region ofthe stomach. Biopsied. - Normal esophagus. Recommendation: - Continue present medications. - Return to GI office for further evaluation ifneeded. Medicines: Monitored Anesthesia Care Complications: No immediate complications. Estimated Blood Loss: Estimated blood loss: none. Procedure: Pre-Anesthesia Assessment: - Prior to the procedure, a History and Physical was performed, and patient medications and allergieswere reviewed. The patient's tolerance of previous anesthesia was also reviewed. The risks and benefitsof the procedure and the sedation options and riskswere discussed with the patient. All questions were answered, and informed consent was obtained. Prior Anticoagulants: The patient has taken no previous anticoagulant or antiplatelet agents. ASA Grade Assessment: III - A patient with severe systemic disease. After reviewing the risks and benefits, the patient was deemed in satisfactory condition toundergo the procedure. The benefits, risks, and alternatives to theprocedure and sedation were discussed and informed consent was obtained. The scope was passed under direct vision.The Endoscope GIF-H190 [id number] was introduced throughthe mouth, and advanced to the second part of duodenum.The upper GI endoscopy was accomplished withoutdifficulty. The patient tolerated the procedure well. Findings: The examined duodenum was normal. Mucosal pattern was normal. Localized mildly erythematous mucosa without bleeding was found inthe prepyloric region of the stomach. Likely none specific. Biopsies were taken with a cold forceps for Helicobacter pylori testing usingCLOtest. Retroflexion in the stomach and the gastric cardia were normal. The examined esophagus body was normal. The GE junction was normal. Electronically signed by Karlene Ramirez M.D. Karlene Ramirez M.D. 12/22/2018 10:59:31 AM Number of Addenda: 0 Note Initiated On: 12/22/2018 10:21 AM Procedure Code(s): --- Professional --- 80034, Esophagogastroduodenoscopy, flexible, transoral; with biopsy, single or multiple Diagnosis Code(s): --- Professional --- K31.89, Other diseases of stomach and duodenum R11.2, Nausea with vomiting, unspecified CPT copyright 2017 [employer]. All rights reserved. The codes documented in this report are preliminary and upon forging press setter up reviewmay be revised to meet current compliance requirements. Recognized by the [employer] for promoting quality in endoscopy Karlene Ramirez MD ENDOSCOPY PROCEDURES Final Result * (ABNORMAL) POCT glucose (12/22/2018 9:37 AM CDT) Glucose, POC 185(H) 71 - 98 mg/dL [facility] ([place]) Blood specimen (specimen) 12/22/2018 9:37 AM CDT 12/22/2018 9:37 AM CDT Narrative ANN [facility] ([place]) - 12/22/2018 9:54 AM CDT Karlene Ramirez MD LAB POCT ORDERABLES - M[facility] CE Final Result ANN [facility]AD[facility] ([place]) 1 [facility] Department [place] [address] documented in this encounter Visit Diagnoses Diagnosis Persistent vomiting- Primary Persistent vomiting documented in this encounter Admitting Diagnoses Diagnosis Persistent vomiting documented in this encounter Administered Medications Inactive Administered Medications - up to 3 most recent administrations Medication Order MAR Action Action Date Dose Rate Site ondansetron (ZOFRAN) injection 4 mg 4 mg, intravenous, Administer over 2 Minutes, Every 30 min PRN, nausea, vomiting, Starting on Fri12/22/18 at 0924, For 2 doses, Recovery (GI), Indications: Nausea and VomitingIndications:Nausea and Vomiting sodium chloride 0.9% infusion 30 mL/hr, intravenous, Continuous, Starting on Fri12/22/18 at 1000, Pre-Procedure (GI) Rate/Dose Verify 12/22/2018 10:33 AM CDT New Bag 12/22/2018 9:44 AM CDT 30 mL/hr 30 mL/hr Ri ght Antecubital sodium chloride 0.9% infusion 125 mL/hr, intravenous, Continuous, Starting on Fri12/22/18 at 1000, Recovery (GI) documented in this encounter Discontinued Medications Medication Sig Discontinue Reason Start Date End Da te amoxicillin (AMOXIL) 500 mg tablet/capsule Take 4 tablets 1 hour before procedure Therapy completed 04/02/2017 12/22/2018 biotin 10,000 mcg capsule Take by mouth. Therapy completed 12/22/2018 documented as of this encounter Historical Medications * This list may reflect changes made after this encounter. 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 Continuous Medication Order 12/20/2018 12/21/2018 12/22/2018 sodium chloride 0.9% infusion 30 mL/hr, intravenous, Continuous, Starting on Fri12/22/18 at 1000, Pre-Procedure (GI) 0944 (New Bag - Prov ider: Laureen Diane RN)1033 (Rate/Dose Verify - Provider: Alexey Gray CRNA)1045 (Anesthesia Volume Adjustment - Provider: Alexey Gray CRNA) sodium chloride 0.9% infusion 125 mL/hr, intravenous, Continuous, Starting on Fri12/22/18 at 1000, Recovery (GI) 1000 (Due) PRN Medication Order 12/20/2018 12/21/2018 12/22/2018 ondansetron (ZOFRAN) injection 4 mg 4 mg, intravenous, Administer over 2 Minutes, Every 30 min PRN, nausea, vomiting, Starting on Fri12/22/18 at 0924, For 2 doses, Recovery (GI), Indications: Nausea and Vomiting documented in this encounter Orders Medications Ordered That Cash ht Not Have Been Administered Count Last Ordered Date First Ordered Date ondansetron (ZOFRAN) injection 4 mg 1 12/22 sodium chloride 0.9% infusion 1 12/22/2018 documented in this encounter Care Teams Schedule Manager Relationship Specialty Start Date End Date Clayton Sandoval MD [id number] [place] [address] PCP - General 10/11/16 08/02/19 documented as of this encounter
--- OUTSIDE RECORDS SUMMARY | 2024-07-11 22:40 | XMS_ITS | Encounter Summary ---
Author Organization [facility] Healthcare Address [address] [place] [address] Care Team Providers Care Pit Operator Name Role Phone Lalito England MD Primary Care Provider [phone] [phone] Encounter Details Date Type Department Care Team (Latest Contact Info) Description 04/05/2020 2:11 PM CDT - 04/05/2020 11:59 PM CDT Hospital Encounter [address] [place] [address] Lalito England MD [facility] [place] [address] Controlled type 2 diabetes mellitus with hyperglycemia, without long-term current use of insulin ([facility]) Discharge Disposition: Discharge to home or self [...] file 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 Gender Identity Not on file Sexual [...] 1 tablet (81 mg total) by mouth galley cook before breakfast 4 aspirin-acetaminop hen-caffeine (EXCEDRIN MIGRAINE) [...] a day 1/2 tablet by mouth 2xday 90 tablet 1 08/02/2019 0 fluticasone propionate [...] hyperglycemia, without long-term current use of insulin ([facility]) Once for 1 Occurrences starting 04/05/2020 until 04/05/2020 documented as of this encounter Procedures Procedure Name Priority Date/Time Associated Diagnosis Comments EGFR Routine 04/05/2020 2:04 PM CDT Controlled type 2 diabetes mellitus with hyperglycemia, without long-term current use of insulin ([facility]) DIFFERENTIAL AUTO Routine 04/05/2020 2:0 4 PM CDT Controlled type 2 diabetes mellitus with hyperglycemia, without long-term current use of insulin ([facility]) CBC WITH AUTO DIFFERENTIAL Routine 04/05/2020 2:04 PM CDT Controlled type 2 diabetes mellitus with hyperglycemia, without long-term current use of insulin ([facility]) ALBUMIN CREATININE RATIO, URINE Routine 04/05/2020 2:04 PM CDT HEMOGLOBIN A1C Routine 04/05/2020 2:04 PM CDT Controlled type 2 diabetes mellitus with hyperglycemia, without long-term current use of insulin ([facility]) LIPID PANEL Routine 04/05/2020 2:04 PM CDT Controlled type 2 diabetes mellitus with hyperglycemia, without long-term current use of insulin ([facility]) COMPREHENSIVE METABOLIC PANEL Routine 04/05/2020 2:04 PM CDT Controlled type 2 diabetes mellitus with hyperglycemia, without long-term current use of insulin ([facility]) documented in this encounter Results * eGFR (04/05/2020 2:04 PM CDT) [facility] eGFR 34 mL/min/1.7 3 m2 ANN MENDES Comment: Interpretive Data Reference Interval Normal ?>/= 90 mL/min/1.73m2 Mildly decreased* ? 60 - 89 mL/min/1.73m2 Mildly to moderately decreased ?45 - 59 mL/min/1.73m2 Moderately to severely decreased ??30 - 44 mL/min/1.73m2 Severely decreased ?15 - 29 mL/min/1.73m2 Kidney Failure ?< 15 ??mL/min/1.73m2 *Relative to young adult level If -Jamaican multiply value by 1.16. Estimated glomerular filtration [...] was last reviewed 2016. Blood specimen (specimen) 04/05/2020 2:04 PM CDT 04/05/2020 4:39 PM CDT Lalito England MD LAB BLOOD ORDERABLES Jessica reynolds Result [facility] [address] Department [place] [address] * (ABNORMAL) Differential, auto (04/05/2020 2:04 PM CDT) Neutrophil abs 6.7(H) 1.7 - 6.5 K/cumm [facility] Imm gran abs 0.1 0.0 - 0.1 K/cumm [facility] Lymphocyte abs 2.0 0.8 - 3.3 K/cumm [facility] Monocyte abs 0.8 0.2 - 0.8 K/cumm [facility] Eosinophil abs 0.4 0.0 - 0.5 K/cumm [facility] Basophil abs 0.1 0.0 - 0.1 K/cumm [facility] Neutrophil pct 67.3 % [facility] Comment: Interpretive Data Percent cell count reference ranges are not reported, since discordance with absolute values may lead to misinterpretation of CBC data. Current Interpretive Data was last revised on 2017. Imm gran pct 0.5 % [facility] Comment: Interpretive Data Percent cell count reference ranges are not reported, since discordance with absolute values may lead to misinterpretation of CBC data. Current Interpretive Data was last revised on 2017. Lymphocyte pct 19.6 % ANN Comment: Interpretive Data Percent cell count reference ranges are not reported, since discordance with absolute values may lead to misinterpretation of CBC data. Current Interpretive Data was last revised on 2017. Monocyte pct 7.9 % ANN Comment: Interpretive Data Percent cell count reference ranges are not reported, since discordance with absolute values may lead to misinterpretation of CBC data. Current Interpretive Data was last revised on 2017. Eosinophil pct 4.1 % ANN Comment: Interpretive Data Percent cell count reference ranges are not reported, since discordance with absolute values may lead to misinterpretation of CBC data. Current Interpretive Data was last revised on 2017. Basophil pct 0.6 % [facility] Comment: Interpretive Data Percent cell count reference ranges are not reported, since discordance with absolute values may lead to misinterpretation of CBC data. Current Interpretive Data was last revised on 2017. Blood specimen (specimen) 04/05/2020 2:04 PM CDT 04/05/2020 4:19 PM CDT Lalito England MD LAB BLOOD ORDERABLES Jessica l Result [facility] [address] [place] [address] * (ABNORMAL) Albumin Creatinine Ratio, Urine (04/05/2020 2:04 PM CDT) Albumin Ur 25.6 mg/L ANN Comment: Interpretive Data No reference range established. Current interpretive data was last revised 2018. Creatinine Ur 84.2 mg/dL ANN Comment: Interpretive Data No reference range established. Current interpretive data was last revised 2018. Albumin Creatinine Ratio, Ur 30(H) 1 - 29 mg/g ANN Urine 04/05/2020 2:04 PM CDT 04/05/2020 4:19 PM CDT Lalito England MD LAB URINE ORDERABLES [place] [address] [address] Department [place] [address] * (ABNORMAL) Comprehensive metabolic panel (04/05/2020 2:04 PM CDT) Sodium 142 135 - 145 mmol/L [facility] Potassium, pl 4.2 3.3 - 4.9 mmol/L [facility] Chloride 100 97 - 110 mmol/L [facility] CO2 28 22 - 32 mmol/L [facility] Anion gap 14 2 - 15 mmol/L [facility] BUN 24 8 - 25 mg/dL [facility] Creatinine 1.52(H) 0.60 - 1.10 mg/dL [facility] Glucose 123 70 - 199 mg/dL [facility] Comment: [...] 2017. Calcium 10.3 8.5 - 10.3 mg/dL [facility] Bilirubin, total 0.5 0.1 - 1.2 mg/dL [...] ORDERABLES Jessica l Result Performing Organization Address [facility] Co de Phone Number ANN MENDES [address] [facility] [place] [address] * (ABNORMAL) Hemoglobin A1c (04/05/2020 2:04 PM CDT) Pathologist [facility] Hgb A1C 7.6(H) 4.0 - 5.6 % [facility] Estimated Average Glucose 171 mg/dL [facility] Comment: The ADA recommends reporting an estimated Average Glucose (eAG) with all Hemoglobin A1c results using the equation derived from a study of 507 normal and diabetic adults. ??Minority populations were underrepresented and children were not included. ?? (Diabetes Care 31:2287-7170, 2008). ??The eAG is not equivalent to a fasting glucose. Blood specimen (specimen) 04/05/2020 2:04 PM CDT 04/05/2020 4:19 PM CDT Lalito England MD LAB BLOOD ORDERABLES Jessica l Result Performing Organization Address [facility] Co de Phone Number ANN MENDES [address] [place] [address] * (ABNORMAL) CBC with auto differential (04/05/2020 2:04 PM CDT) [facility] WBC 9.9 3.8 - 9.9 K/cumm [facility] Hgb 9.6(L) 11.9 - 15.5 g/dL [facility] Hct 31.7(L) 35.6 - 45.5 % [facility] Plt 224 150 - 400 K/cumm [facility] MPV 10.2 9.1 - 12.3 fL [facility] RBC 3.67(L) 3.90 - 5.20 M/cumm [facility] MCV 86.4 81.3 - 96.4 fL [facility] MCH 26.2(L) 27.1 - 33.3 pg [facility] MCHC 30.3(L) 32.3 - 35.7 g/dL [facility] RDW CV 15.9(H) 11.1 - 14.9 % [facility] RDW SD 50.0(H) 35.7 - 48.1 fL [facility] NRBC abs 0.00 0.00 - 0.01 K/cumm [facility] Blood specimen (specimen) 04/05/2020 2:04 PM CDT 04/05/2020 4:19 PM CDT us Lalito England MD LAB BLOOD ORDERABLES Jessica rodolfo Result [facility] [address] Department [place] [address] * Lipid panel (04/05/2020 2:04 PM CDT) Cholesterol 119 30 - 199 mg/dL [facility] Comment: Interpretive Data Ages < or = [...] on 2018. Triglycerides 149 <=149 mg/dL ANN Comment: Interpretive Data Ages < or = [...] on 2018. HDL 40 >=40 mg/dL ANN Comment: Interpretive Data Ages < or = [...] 2018. LDL, calculated 49 <=129 mg/dL ANN Comment: Interpretive Data Ages < or = [...] revised on 2018. Chol/HDL ratio 3 ANN MENDES Blood specimen (specimen) 04/05/2020 2:04 PM CDT 04/05/2020 4:19 PM CDT Lailto England MD LAB BLOOD ORDERABLES Jessica l Result [facility] [address] Department of Laboratories [place], [place] [id number] documented in this encounter Visit Diagnoses Diagnosis Controlled type 2 diabetes mellitus with hyperglycemia, without long-term current use of insulin (HCC) documented in this encounter Care Teams Pit Operator Relationship Specialty Start Date End Date [place] [address] PCP - General 08/03/19 documented as of this encounter
--- OUTSIDE RECORDS SUMMARY | 2024-07-11 22:40 | XMS_ITS | Encounter Summary ---
Author Organization [facility] Medical Group Address [address] [place] [address] Care Team Providers Care Time Piece Repairer Name Role Phone Lalito England MD Primary Care Provider [phone] Reason for Visit * Reason Onset Date Comments Insurance Referrals 05/23/2020 Dr. Regine miller Encounter Details Date Type Department Care Team (Late st Contact Info) Description 05/23/2020 Telephone [facility] [address] [place] [address] Tracy Morrow, [address] [facility] [address] [place] [address] Insurance Referrals (Dr. 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 insurance and faxed copy to Dr. Evans's office. K SPLICER * Telephone Encounter - Tracy Posey - 05/23/2020 4:03 PM CST Patient called requesting insurance referral for Dr. Victoria Evans. Her appointment is scheduled for 05/29. Patient has [employer] insurance. K SPLICER documented in this encounter Plan of Treatment Not on file documented as of this encounter Visit Diagnoses Not on filedocumented in this encounter Care Teams Time Piece Repairer Relationship Specialty Start Date End Date [place] [address] PCP - General 08/03/19 documented as of this encounter
--- OUTSIDE RECORDS SUMMARY | 2024-07-11 22:40 | XMS_ITS | Encounter Summary ---
Author Organization [facility] Medical Group Address [address] [place] [id number] Care Team Providers Care Bliss Press Operator Name Role Phone Lalito England MD Primary Care Provider [phone] [phone] Reason for Visit * Reason Onset Date Comments Test Results 07/12/2020 blood work Encounter Details Date Type Department Care Team (Late st Contact Info) Description 07/12/2020 Telephone [facility] [address] [place] [address] Lalito England MD [address] [place] [address] Test Results (blood work) Social History Tobacco Use Types Packs/Day Years Used Date Smoking Tobacco: Never Smokeless Tobacco: Never Alcohol Use Standard Drinks/Week Comments Yes 0 (1 standard drink = 0.6 oz pur e alcohol) occasional PHQ-2 Answer Date Recorded PHQ-2 Score 0 08/02/2019 Comments No Sex and Gender Information Value Date Recorded Sex Assigned at Not on file 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 She said she has an appt with Dr. England on Friday and would like to discuss the referral to nephrology with him. BER AND TINNER * Telephone Encounter - Katya Dalal MA - 07/12/2020 3:12 PM CST ----- Message from Bere Su NP sent at 07/12/2020 2:30 PM PLUMBER AND TINNER ----- Please let Criss Pitts know her cholesterol is well controlled. Please continue current dose of simvastatin 40 mg daily. Her A1c is stable at 7.6%. Her kidney function is worsening/decreasing. I recommend referral to colorer machine. I will enter an order to Dr. Hammer unless she has another preference. Thank you. BER AND TINNER documented in this encounter Plan of Treatment Not on file documented as of this encounter Visit Diagnoses Not on filedocumented in this encounter Care Teams Bliss Press Operator Relationship Specialty Start Date End Date [place] [place] [address] PCP - General 08/03/19 documented as of this encounter
--- OUTSIDE RECORDS SUMMARY | 2024-07-11 22:40 | XMS_ITS | Encounter Summary ---
Author Organization [facility] Medical Group Address [address] [place] [address] Care Team Providers Care Decorating Kiln Operator Name Role Phone Lalito England MD Primary Care Provider [phone] [phone] Reason for Visit * Reason Comments Follow-up 3 month f/u Encounter Details Date Type Department Care Team (Late st Contact Info) Description 10/20/2020 2:30 PM CDT Office Visit [facility] [address] [place] [address] Lalito England MD [address] [place] [address] Controlled type 2 diabetes mellitus with diabetic polyneuropathy, without long-term current use of insulin ([facility]) (Primary Dx); Controlled type 2 diabetes mellitus with stage 3 chronic kidney disease, with long-term current use of insulin ([facility]/HCC); Hypertension associated with diabetes (CMS/HCC); Type 2 diabetes mellitus with hyperlipidemia ([facility]/HCC); Morbid obesity with BMI of 40.0-44.9, adult (CMS/HCC); BMI 40.0-44.9, adult (CMS/HCC) Social History Tobacco Use Types Packs/Day Years [...] on file 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 Gender Identity Not on file Sexual Orientation Not on file documented as of this encounter Last Filed Vital Signs Vital Sign Reading Time Taken Comments Blood Pressure 134/66 10/20/2020 2:29 PM CDT Pulse 90 10/20/2020 2:29 PM CDT Temperature 36.2 ??C (97.1 ??F) 10/20/2020 2:29 PM CD T Respiratory Rate 18 10/20/2020 2:29 PM CDT Oxygen Saturation 97% 10/20/2020 2:29 PM CDT Inhaled Oxygen Concentration - - Weight 112.5 kg (248 lb) 10/20/2020 2:29 PM CDT Height 167.6 cm (5' 5.98 ) 10/20/2020 2:29 PM CD T Body Mass Index 40.05 10/20/2020 2:29 PM CDT documented in this encounter Progress Notes * Lalito England MD - 10/20/2020 2:30 PM CDT Images from the original note were not included. [facility] Criss Ly Chief Complaint. Chief Complaint Patient presents with ??? Follow-up 3 month f/u HPI. Patient is a 70 y.o. female Patient continues to follow with nephrology, Dr. Hammer. Improved CKD IIIB. Brenda given handout on nondialysis CKD patients. Diabetes She presents for her follow-up diabetic visit. She has type 2 diabetes mellitus. Her disease coursehas been stable. Pertinent negatives for hypoglycemia include no dizziness, headaches, mood changes, nervousness/anxiousness or tremors. Associated symptoms include fatigue and foot paresthesias. Pertinent negatives for diabetes include no chest pain, no foot ulcerations, no polyuria, no weakness and no weight loss. Symptoms are stable. Diabetic complications include nephropathy and peripheral neuropathy. Pertinent negatives for diabetic complications include no heart disease or retinopathy. Risk factors for coronary artery disease include diabetes mellitus, dyslipidemia, hypertension, obesity, sedentary lifestyle, stress and post-menopausal. Current diabetic treatment includes insulin injections and oral agent (monotherapy). She is compliant with treatment most of the time. Her weight isstable. She is following a diabetic and generally healthy diet. Meal planning includes avoidance ofconcentrated sweets. She has not had a previous visit with a dietitian. She participates in exercise intermittently. Her home blood glucose trend is fluctuating minimally. An REYNALDO inhibitor/angiotensin II receptor moses is being taken. She sees a promotions producer.Eye exam is current. Hypertension This is a [...] sedentary lifestyle and stress. Past treatments include diuretics, angiotensin blockers and calcium channel blockers. The current treatment provides moderate improvement. Compliance problems include diet and exercise. There is no history of kidney disease, CAD/NC, heart failure or retinopathy. There is no history of chronic renal disease. Hyperlipidemia This is a [...] artery disease include diabetes mellitus, dyslipidemia, hypertension, post- menopausal, a sedentary lifestyle, stress and obesity. Past Medical History: Diagnosis Date ??? Benign hypertension with CKD (chronic kidney disease) stage III ??? Gastroesophageal reflux disease GERD ??? HX OTHER MEDICAL PMO ??? 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 HX OTHER MEDICAL [facility] OA ??? [...] hip arthroplasty left hip; Comments: [facility] TCU unit 02/06 - 02/17/16 for rehabilitation. [...] tablet aspirin 81 mg enteric coated tablet iolkrdi-imstanpjxpztt-xjljwjck (EXCEDRIN MIGRAINE) 250-250-65 mg per tablet blood glucose diagnostic (Contour Next Test Strips) strip blood-glucose meter (CONTOUR NEXT USB METER) misc calcium carbonate-vitamin D3 500 mg(1,250mg) -400 unit tablet cloNIDine (CATAPRES) 0.1 mg tablet fluticasone propionate (FLONASE) 50 mcg/actuation nasal spray furosemide (LASIX) 20 mg tablet gabapentin (NEURONTIN) 300 mg capsule insulin aspart U-100 (NovoLOG) 100 unit/mL injection irbesartan-hydroCHLOROthiazide (AVALIDE) 300-12.5 mg per tablet lancets (MICROLET LANCET) misc Lantus Solostar U-100 Insulin 100 unit/mL (3 mL) insulin pen metFORMIN (GLUCOPHAGE) 500 mg tablet montelukast (SINGULAIR) [...] for fatigue and malaise/fatigue. Negative for activity change, fever and weight loss. HENT: Negative for postnasal drip and rhinorrhea. [...] ideas. The patient is not nervous/anxious. BP 134/66 (BP Location: Left arm, Patient Position: Sitting) Pulse 90 Temp 36.2 ??C (97.1 ??F) (Temporal) Resp 18 Ht 167.6 cm (5' 5.98 ) Wt 112.5 kg (248 lb) SpO2 97% BMI 40.05 kg/m?? Physical Exam: Physical Exam Vitals reviewed. Constitutional: General: She is not in acute distress. HENT: Mouth/Throat: Pharynx: No oropharyngeal exudate. Eyes: General: No scleral icterus. Neck: Vascular: No JVD. Cardiovascular: Rate and Rhythm: Normal rate and regular rhythm. Heart sounds: No murmur. Pulmonary: Effort: Pulmonary effort is normal. No respiratory distress. Breath sounds: Normal breath sounds. Abdominal: General: Bowel sounds are normal. Palpations: Abdomen is soft. Musculoskeletal: Cervical back: Neck supple. Lymphadenopathy: Cervical: No cervical adenopathy. Skin: Findings: No erythema. Neurological: Mental Status: She is alert and oriented to person, place, and time. Psychiatric: Thought Content: Thought content normal. Assessment & Plan: Diagnoses and all orders for this visit: Controlled type 2 diabetes mellitus with diabetic polyneuropathy, without long- term current use of insulin ([facility]/HCC) (Primary) - POCT hemoglobin A1c - POCT microalbumin Secondary prevention. WIll continue to follow and monitor response. Controlled type 2 diabetes mellitus with stage 3 chronic kidney disease, with long-term current useof insulin (CMS/HCC) Cnoitnue f/u with Dr. Hammer, will follow resopnse. Hypertension associated with diabetes (CMS/HCC) Stable and will continue to follow and montior seropn. Type 2 diabetes mellitus with hyperlipidemia (CMS/HCC) Copmntinue statin therapy. Morbid obesity with BMI of 40.0-44.9, adult (CMS/HCC) Cnotinue to make healthy food choices and continue to increase exercise at the presme titoh. BMI 40.0-44.9, adult (CMS/HCC) BMI Follow-up includes: nutrition counseling. Body mass index is 40.05 kg/m??. Lalito England MD documented in this encounter Plan of Treatment Scheduled Orders Name Type Priority Associated Diagnoses Orde r Schedule Microalbumin, urine, random Lab Routine Controlled type 2 diabetes mellitus with diabetic polyneuropathy, without long-term current use of insulin ([facility]) Expected: 10/20/2020, Expires: 10/20/2021 documented as of this encounter Procedures Procedure Name Priority Date/Time Associated Diagnosis Comments POCT HEMOGLOBIN A1C Routine 10/20/2020 3 :10 PM CDT Controlled type 2 diabetes mellitus with diabetic polyneuropathy, without long-term current use of insulin ([facility]) documented in this encounter Results * POCT hemoglobin A1c (10/20/2020 3:10 PM CDT) Hemoglobin A1C, POC 9.2 Blood specimen (specimen) 10/20/2020 3:10 PM CDT Lalito England MD POINT OF CARE TEST ORDERA BLES Final Result documented in this encounter Visit Diagnoses Diagnosis Controlled type 2 diabetes mellitus with diabetic polyneuropathy, without long- term current use of insulin (HCC)- Primary Controlled type 2 diabetes mellitus with stage 3 chronic kidney disease, with long-term current use of insulin (HCC) Hypertension associated with diabetes (HCC) Unspecified essential hypertension Type 2 diabetes mellitus with hyperlipidemia (HCC) Morbid obesity with BMI of 40.0-44.9, adult (HCC) BMI 40.0-44.9, adult (HCC) documented in this encounter Care Teams Decorating Kiln Operator Relationship Specialty Start Date End Date Lalito England MD [address] [place] [address] PCP - General 08/03/19 documented as of this encounter
--- OUTSIDE RECORDS SUMMARY | 2024-07-11 22:40 | XMS_ITS | Encounter Summary ---
Author Organization [facility] Address [address] [place] [address] Care Team Providers Care Pharmacy Benefits Coordinator Name Role Phone Lalito England MD Primary Care Provider [phone] Reason for Visit * Reason Comments nurse visit Pt here for flu shot Encounter Details Date Type Department Care Team (Latest Contact Info) Description 04/18/2020 11:30 AM CDT Clinical Support [facility] [address] [id number] Need for influenza vaccination (Primary Dx) Social History Tobacco Use Types Packs/Day Years Used Date Smoking Tobacco: Never Smokeless Tobacco: Never Alcohol Use Standard Drinks/Week Comments Yes 0 (1 standard drink = 0.6 oz pur e alcohol) occasional PHQ-2 Answer Date Recorded PHQ-2 Score 0 08/02/2019 Comments No Sex and Gender Information Value Date Recorded Sex Assigned at Not on file 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 Gender Identity Not on file Sexual Orientation Not on file documented as of this encounter Plan of Treatment Not on file documented as of this encounter Visit Diagnoses Diagnosis Need for influenza vaccination- Primary Need for prophylactic vaccination and inoculation against influenza documented in this encounter Orders Immunization/Injection Count Last Ordered Date First Ordered Date FLU VACCINE HIGH DOSE QUAD P F 65Y+ IM - FLUZONE HIGH DOS 1 04/18/2020 documented in this encounter Care Teams Pharmacy Benefits Coordinator Relationship Specialty Start Date End Date Lalito England MD [address] [place], [place] [address] [address] PCP - General 08/03/19 documented as of this encounter
--- OUTSIDE RECORDS SUMMARY | 2024-07-11 22:40 | XMS_ITS | Encounter Summary ---
Author Organization [facility] Address [address] [place] [address] Care Team Providers Care Government Auditor Name Role Phone Lalito England MD Primary Care Provider [phone] Encounter Details Date Type Department Care Team (Late st Contact Info) Description 02/03/2020 Orders Only [facility] [address] [place] [address] Kaleigh Delgado MA Social History Tobacco Use Types Packs/Day Years Used Date Smoking Tobacco: Never Smokeless Tobacco: Never Alcohol Use Standard Drinks/Week Comments Yes 0 (1 standard drink = 0.6 oz pur e alcohol) occasional PHQ-2 Answer Date Recorded PHQ-2 Score 0 08/02/2019 Comments No Sex and Gender Information Value Date Recorded Sex Assigned at Not on file 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 Returned call- no answer @ 4:21pm. documented in this encounter Plan of Treatment Not on file documented as of this encounter Visit Diagnoses Not on filedocumented in this encounter Care Teams Government Auditor Relationship Specialty Start Date End Date Lalito England MD [facility] [address] [place] [address] PCP - General 08/03/19 documented as of this encounter
--- OUTSIDE RECORDS SUMMARY | 2024-07-11 22:40 | XMS_ITS | Encounter Summary ---
Author Organization 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 Pt also stated that she was told that she needed to see a [employer] due to kidney function decreasing. Encounter Details Date Type Department Care Team (Late st Contact Info) Description 07/17/2020 3:15 PM FLEECER Office Visit [facility] [address] [place] [address] Lalito England MD [address] [place] [address] Hypertension associated with diabetes (CMS/HCC) (Primary Dx); Controlled type 2 diabetes mellitus with diabetic polyneuropathy, without long-term current use of insulin (CMS/HCC); Sarcoidosis of lung (CMS/HCC); Class 2 severe obesity due to excess calories with serious comorbidity and body mass index (BMI) of 37.0 to 37.9 in adult (CMS/HCC); Controlled type 2 diabetes mellitus with stage 4 chronic kidney disease, with long-term current use of insulin (CMS/HCC); Type 2 diabetes mellitus with hyperlipidemia (CMS/HCC); CKD (chronic kidney disease) stage 4, GFR 15-29 ml/min (CMS/HCC) Social History Tobacco Use Types Packs/Day [...] on file Legal Sex Female 11:52 PM FLEECER Gender Identity Not on file Sexual Orientation Not on file documented as of this encounter Last Filed Vital Signs Vital Sign Reading Time Taken Comments Blood Pressure 140/62 07/17/2020 3:25 PM FLEECER Pulse 91 07/17/2020 3:25 PM FLEECER Temperature 36.4 ??C (97.5 ??F) 07/17/2020 3:25 PM CS T Respiratory Rate 18 07/17/2020 3:25 PM FLEECER Oxygen Saturation 96% 07/17/2020 3:25 PM FLEECER Inhaled Oxygen Concentration - - Weight 109.9 kg (242 lb 3.2 oz) 07/17/2020 3:25 PM FLEECER Height 167.6 cm (5' 5.98 ) 07/17/2020 3:25 PM CS T Body Mass Index 39.11 07/17/2020 3:25 PM FLEECER documented in this encounter Ordered Prescriptions Prescription Sig Dispense Quantity Refills Last Filled Start Date End Date blood glucose diagnostic (Contour Next Test Strips) strip Test blood sugar 3 times a day and will montior response. Dx: E11.22. 300 each 3 07/17/2020 3 metFORMIN (GLUCOPHAGE) 500 mg tabletIndications: Controlled type 2 diabetes mellitus with diabetic polyneuropathy, without long-term current use of insulin (HCC) Take 1 tablet (500 mg total) by mouth 2 (two) times a day with meals 360 tablet 1 07/17/2020 1 documented in this encounter Progress Notes * Lalito England MD - 07/17/2020 3:15 PM CST Images from the original note were not included. [facility] Chief Complaint. Chief Complaint Patient presents with ??? Follow-up 3 month f/u ??? Discuss Test Results Pt stated that she had US Arterial Doppler completed last month and would like to discuss. Pt also stated that she was told that she needed to see a [employer] due to kidney function decreasing. HPI. Patient is a 70 y.o. female HPI Past Medical History: Diagnosis Date ??? Benign hypertension with CKD (chronic kidney disease) stage III ??? Gastroesophageal reflux disease GERD ??? HX OTHER MEDICAL PMO ??? HX OTHER MEDICAL RUBBER DOWN ??? HX OTHER MEDICAL CMC OA ??? [...] Back surgery 2006.; Comments: J 07/25/2015 - ??? HX OTHER MEDICAL Cervical disc surg. 2008.; Comments: J 07/25/2015 - ??? HX OTHER MEDICAL Breast reduction 2009.; Comments: J 07/25/2015 - ??? HX OTHER MEDICAL left hip and leg surgery ??? HX OTHER MEDICAL conversion of previous hip arthroplasty left hip; Comments: [facility] unit 02/06 - 02/17/16 for rehabilitation. [...] tablet aspirin 81 mg enteric coated tablet psdtzua-wnqfkjerwuopt-wdulcnlr (EXCEDRIN MIGRAINE) 250-250-65 mg per tablet blood glucose diagnostic (Contour Next Test Strips) strip blood-glucose meter (CONTOUR NEXT USB METER) misc calcium carbonate-vitamin D3 500 mg(1,250mg) -400 unit tablet cloNIDine (CATAPRES) 0.1 mg tablet fluticasone propionate (Flonase) 50 mcg/actuation nasal spray furosemide (LASIX) 20 mg tablet gabapentin (NEURONTIN) 300 mg capsule insulin aspart U-100 (NovoLOG) 100 unit/mL injection insulin glargine (LANTUS,BASAGLAR) 100 unit/mL (3 mL) insulin pen irbesartan-hydroCHLOROthiazide (AVALIDE) 300-12.5 mg per tablet lancets (MICROLET LANCET) misc montelukast (SINGULAIR) [address] (PROTONIX) 40 mg EC tablet pen needle, diabetic (BD Ultra-Fine Mini Pen Needle) 31 gauge x 3/16 needle simvastatin (ZOCOR) 40 mg tablet tiZANidine (ZANAFLEX) 2 mg tablet traMADol (ULTRAM) 50 mg tablet metFORMIN (GLUCOPHAGE) 500 mg tablet Allergies Allergen Reactions ??? Hydrocodone [...] Brother Review of Systems: Review of Systems BP 140/62 (BP Location: Right arm, Patient Position: Sitting) Pulse 91 Temp 36.4 ??C (97.5 ??F)(Temporal) Resp 18 Ht 167.6 cm (5' 5.98 ) Wt 109.9 kg (242 lb 3.2 oz) SpO2 96% BMI 39.11 kg/m?? Physical Exam: Physical Exam Vitals signs reviewed. Constitutional: General: She is not in acute distress. HENT: Mouth/Throat: Pharynx: No oropharyngeal exudate. Eyes: General: No scleral icterus. Neck: Musculoskeletal: Neck supple. Vascular: No JVD. Cardiovascular: Rate and Rhythm: Normal rate and regular rhythm. Heart sounds: No murmur. Pulmonary: Effort: Pulmonary effort is normal. No respiratory distress. Breath sounds: Normal breath sounds. No rales. Chest: Chest wall: No tenderness. Abdominal: General: Bowel sounds are normal. Palpations: Abdomen is soft. Tenderness: There is no right CVA tenderness or left CVA tenderness. Musculoskeletal: Right lower leg: No edema. Left lower leg: No edema. Lymphadenopathy: Cervical: No cervical adenopathy. Skin: Findings: No erythema. Neurological: Mental Status: She is alert and oriented to person, place, and time. Cranial Nerves: No cranial nerve deficit. Motor: Weakness present. Psychiatric: Thought Content: Thought content normal. Assessment & Plan: Diagnoses and all orders for this visit: Hypertension associated with diabetes ([facility]) (Primary) Reviewed goal blood pressure and will continue to follow and monitor resopnse. Controlled type 2 diabetes mellitus with diabetic polyneuropathy, without long- term current use of insulin ([facility]) Continue gabapentin and will montior response to paresthesia. Sarcoidosis of lung ([facility]) WIll continue to follow. Stabl eat presnet. Class 2 severe obesity due to excess calories with serious comorbidity and body mass index (BMI) of37.0 to 37.9 in adult ([facility]) Reviewed healthy food choices and will continue to follow. Controlled type 2 diabetes mellitus with stage 4 chronic kidney disease, with long-term current useof insulin ([facility]) Stop CKD stage 4 and will monitor response. NO change at the present time. Type 2 diabetes mellitus with hyperlipidemia ([facility]) Stasble on statin medication. CKD (chronic kidney disease) stage 4, GFR 15-29 ml/min ([facility]) Metformin contranidicated. Other orders - blood glucose diagnostic (Contour Next Test Strips) strip; Test blood sugar 3 times a day and will montior response. Dx: E11.22. BMI Follow-up includes: nutrition counseling. Body mass index is 39.11 kg/m??. Lalito England MD CER documented in this encounter Plan of Treatment Not on file documented as of this encounter Visit Diagnoses Diagnosis Hypertension associated with diabetes ([facility])- Primary Unspecified essential hypertension Controlled type 2 diabetes mellitus with diabetic polyneuropathy, without long- term current use of insulin ([facility]) Sarcoidosis of lung ([facility]) Sarcoidosis Class 2 severe obesity due to excess calories with serious comorbidity and body mass index (BMI) of 37.0 to 37.9 in adult ([facility]) Controlled type 2 diabetes mellitus with stage 4 chronic kidney disease, with long-term current use of insulin ([facility]) Type 2 diabetes mellitus with hyperlipidemia ([facility]) CKD (chronic kidney disease) stage 4, GFR 15-29 ml/min ([facility]) ([facility]) Chronic kidney disease, Stage IV (severe) documented in this encounter Discontinued Medications Medication Sig Discontinue Reason Start Date End Da te metFORMIN (GLUCOPHAGE) 500 mg tabletIndications:Contro lled type 2 diabetes mellitus with diabetic polyneuropathy, without long-term current use of insulin ([facility]) Take 2 tablets (1,000 mg total) by mouth 2 (two) times a day with meals Reorder 02/10/2020 07/17/2020 blood glucose diagnostic (CONTOUR NEXT STRIPS) strip USE ONE STRIP IN METER THREE TIMES A DAY Reorder 07/04/2014 07/17/2020 metFORMIN (GLUCOPHAGE) 500 mg tabletIndications:Contro lled type 2 diabetes mellitus with diabetic polyneuropathy, without long-term current use of insulin ([facility]) Take 1 tablet (500 mg total) by mouth 2 (two) times a day with meals Alternate therapy 07/17/2020 07/27/2020 documented as of this encounter Care Teams 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
--- OUTSIDE RECORDS SUMMARY | 2024-07-11 22:40 | XMS_ITS | Encounter Summary ---
Author Organization [facility] Address [address] [place] [address] Care Team Providers Care Child Care Centre Director Name Role Phone Clayton Sandoval MD Primary Care Provider + Reason for Visit * Reason Comments Establish Care pt is here to est ca re. Flu Vaccine pt received flu vacc ine Encounter Details Date Type Department Care Team (Late st Contact Info) Description 08/02/2019 10:00 AM [facility] Office Visit [facility] [address] [place] [id number] Bere Su, PHOTOGRAPHY TEACHER [address] [place] [address] Controlled type 2 diabetes mellitus with diabetic polyneuropathy, without long-term current use of insulin ([facility]) (Primary Dx); Hypertension associated with type 2 diabetes mellitus ([facility]/HCC); Age-related osteoporosis without current pathological fracture; Chronic midline low back pain without sciatica; Seasonal allergic rhinitis due to pollen; Gastroesophageal reflux disease, esophagitis presence not specified; Sarcoidosis of lung (CMS/HCC); Encounter for screening mammogram for malignant neoplasm of breast; BMI 39.0-39.9,adult Social History Tobacco Use Types Packs/Day Years Used Date Smoking Tobacco: Never Smokeless Tobacco: Never Alcohol Use Standard Drinks/Week Comments Yes 0 (1 standard drink = 0.6 oz pur e alcohol) occasional PHQ-2 Answer Date Recorded PHQ-2 Score 0 08/02/2019 Comments No Sex and Gender Information Value Date Recorded Sex Assigned at Not on file Legal Sex Female 11:52 PM [facility] Gender Identity Not on file Sexual Orientation Not on file documented as of this encounter Last Filed Vital Signs Vital Sign Reading Time Taken Comments Blood Pressure 138/74 08/02/2019 10:14 AM [facility] Pulse 88 08/02/2019 10:14 AM [facility] Temperature 36.7 ??C (98.1 ??F) 08/02/2019 1 0:14 AM [facility] Respiratory Rate - - Oxygen Saturation 97% 08/02/2019 10: 14 AM [facility] Inhaled Oxygen Concentration - - Weight 110.8 kg (244 lb 3.2 oz) 020 10:14 AM [facility] Height 167.6 cm (5' 6 ) 08/02/2019 10:1 4 AM [facility] Body Mass Index 39.41 08/02/2019 10:14 AM [facility] documented in this encounter Patient Instructions * Patient Instructions* Bere Su NP - 08/02/2019 10:00 AM [facility] I have ordered a screening mammogram for you. Please call [facility] at [phone] to schedule your appointment. Follow-up in 3 months. Please have your diabetic labs drawn at our lab one week prior to your next appointment. HOME HEALTH documented in this encounter Ordered Prescriptions Prescription Sig Dispense Quantity Refills Last Filled Start Date End Date simvastatin (ZOCOR) 40 mg tabletIndications: hyperlipidemia Take 1 tablet (40 mg total) by mouth nightly 90 tablet 1 08/02/[address] (PROTONIX) 40 mg EC tabletIndications: Gastroesophageal reflux disease, esophagitis presence not specified Take 1 tablet (40 mg total) by mouth 2 (two) times a day 180 tablet 1 08/02/2019 0 metFORMIN (GLUCOPHAGE) 500 mg tabletIndications: Controlled type 2 diabetes mellitus with diabetic polyneuropathy, without long-term current use of insulin (HCC) Take 2 tablets (1,000 mg total) by mouth 2 (two) times a day with meals 360 tablet 1 08/02/2019 0 irbesartan-hydroCH LOROthiazide (AVALIDE) 300-12.5 mg per tabletIndications: Hypertension associated with type 2 diabetes mellitus (HCC) Take 1 tablet by mouth daily 90 tablet 1 08/02/2019 0 insulin glargine (LANTUS,BASAGLAR) 100 unit/mL (3 mL) insulin penIndications:typ e 2 diabetes mellitus Inject 48 Units under the skin daily 5 pen 3 08/02/2019 0 insulin aspart U-100 (NovoLOG) 100 unit/mL injectionIndicatio ns:type 2 diabetes mellitus Inject 32 Units under the skin 3 (three) times a day before meals 84 mL 1 08/02/2019 0 furosemide (LASIX) 20 mg tabletIndications: Edema Take 1 tablet (20 mg total) by mouth daily 90 tablet 1 08/02/2019 0 fluticasone propionate (Flonase) 50 mcg/actuation nasal sprayIndications:S easonal allergic rhinitis due to pollen Administer 2 sprays into each nostril daily 3 Inhaler 1 08/02/2019 0 cloNIDine (CATAPRES) 0.1 mg tabletIndications: hypertension Take 0.5 tablets (0.05 mg total) by mouth 2 (two) times a day 1/2 tablet by mouth 2xday 90 tablet 1 08/02/2019 0 amLODIPine (NORVASC) 5 mg tabletIndications: Hypertension associated with type 2 diabetes mellitus (HCC) Take 1 tablet (5 mg total) by mouth daily 90 tablet 1 08/02/2019 1 alendronate (FOSAMAX) 70 mg tabletIndications: Age-related osteoporosis without current pathological fracture Take 1 tablet (70 mg total) by mouth every 7 days 13 tablet 1 08/02/2019 0 documented in this encounter Progress Notes * Bere Su PHOTOGRAPHY TEACHER - 08/02/2019 10:00 AM CST Images from the original note were not included. [facility] Chief Complaint. Chief Complaint Patient presents with ??? Establish Care pt is here to est care. ??? Flu Vaccine pt received flu vaccine HPI. Patient is a 69 y.o. female Presents to establish care for management of diabetes, HTN, GERD, and back pain. Prior PCP - Dr. Sandoval. Patient to bring copy of most recent labs (06/2019) to office. PMHx of sarcoidosis - following with pulmonology. Compliant with inhaler regimen; denies shortness of breath, wheezing, or hemoptysis. Osteoporosis - Previously receiving Reclast infusion, currently taking alendronate weekly. Last DEXA - 2019. Diabetes with peripheral neuropathy - stable; last A1c = 7.7% (06/2019). UTD on eye exam. Seeing podiatry. Chronic lumbago - following with ortho and pain management. Ambulates with cane. 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 Denies alcohol, tobacco, or illicit drug use. Does not formally exercise. Diabetes She presents for her follow-up diabetic visit. She has type 2 diabetes mellitus. Her disease coursehas been stable. There are no hypoglycemic associated symptoms. Pertinent negatives for hypoglycemia include no headaches or nervousness/anxiousness. Associated symptoms include foot paresthesias. Per tinent negatives for diabetes include no blurred vision, no chest pain, no foot ulcerations and no visual change. There are no hypoglycemic complications. Symptoms are stable. Diabetic complications include nephropathy and peripheral neuropathy. Risk factors for coronary artery disease include diabetes mellitus, obesity, hypertension, sedentary lifestyle, post-menopausal and dyslipidemia. Currentdiabetic treatment includes insulin injections and oral agent (monotherapy). She is compliant with treatment all of the time. Her weight is stable. She is following a diabetic diet. She has not had aprevious visit with a dietitian. She rarely participates in exercise. There is no change in her home blood glucose trend. Her breakfast blood glucose range is generally 140-180 mg/dl. An REYNALDO inhibitor/angiotensin II receptor moses is being taken. She sees a baler operator.Eye exam is current. Hypertension This is a chronic problem. The current episode started more than 1 year ago. The problem is unchanged. The problem is controlled. Associated symptoms include peripheral edema. Pertinent negatives include no blurred vision, chest pain, headaches, orthopnea or shortness of breath. There are no associated agents to hypertension. Risk factors for coronary artery disease include diabetes mellitus, dyslipidemia, post-menopausal state, obesity and sedentary lifestyle. Past treatments include direct vasodilators, diuretics, calcium channel blockers and angiotensin blockers. The current treatment provides moderate improvement. Compliance problems include exercise and diet. Hypertensive end-organ damage includes kidney disease. There is no history of angina. Identifiable causes of hypertension include chronic renal disease. Back Pain This is a chronic problem. The current episode started more than 1 year ago. The problem occurs daily. The problem is unchanged. The pain is present in the lumbar spine. The quality of the pain is described as aching. The pain does not radiate. The pain is moderate. The symptoms are aggravated by position. Associated symptoms include numbness. Pertinent negatives include no abdominal pain, bladder incontinence, bowel incontinence, chest pain, dysuria, headaches or perianal numbness. Risk factors include obesity, lack of exercise, poor posture and sedentary lifestyle. She has tried analgesics for the symptoms. The treatment provided mild relief. Past Medical History: Diagnosis Date ??? Benign hypertension with CKD (chronic kidney disease) stage III (CMS/HCC) ??? Gastroesophageal reflux disease GERD ??? HX OTHER MEDICAL PMO ??? 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 HX OTHER MEDICAL [facility] OA ??? HX OTHER MEDICAL 2008 Discectomy, cervical ??? HX OTHER MEDICAL Fall ??? HX OTHER MEDICAL Left proximal femoral Gamma Nail fixation proximal; Comments: [facility] 07/25/2015 - ??? HX OTHER MEDICAL RTKR 2001.; Comments: [facility] 07/25/2015 - ??? HX OTHER MEDICAL LTKR 2006.; Comments: [facility] 07/25/2015 - ??? HX OTHER MEDICAL Back surgery 2007.; Comments: [facility] 07/25/2015 - ??? HX OTHER MEDICAL Cervical disc surg. 2008.; Comments: [facility] 07/25/2015 - ??? HX OTHER MEDICAL Breast reduction 2008.; Comments: [facility] 07/25/2015 - ??? HX OTHER MEDICAL left hip and leg surgery ??? HX OTHER MEDICAL conversion of previous hip arthroplasty left hip; Comments: [facility] TCU unit 02/06 - 02/17/16 [...] tablet aspirin 81 mg enteric coated tablet lhoxvrd-rpblfcqjfbcvp-mddoxhbx (EXCEDRIN MIGRAINE) 250-250-65 mg per tablet blood [...] mg tablet traMADol (ULTRAM) 50 mg tablet alendronate (FOSAMAX) 70 mg tablet amLODIPine (NORVASC) 2.5 mg tablet cloNIDine (CATAPRES) 0.1 mg tablet fluticasone (FLONASE) 50 mcg/actuation nasal spray furosemide (LASIX) 20 mg tablet insulin aspart U-100 (NovoLOG) 100 unit/mL injection insulin glargine (LANTUS) 100 unit/mL (3 mL) insulin pen irbesartan-hydroCHLOROthiazide (AVALIDE) 300-12.5 mg per tablet metFORMIN (GLUCOPHAGE) [address] (PROTONIX) 40 mg EC tablet simvastatin (ZOCOR) 40 mg tablet amLODIPine (NORVASC) 5 mg tablet blood glucose diagnostic (CONTOUR NEXT STRIPS) strip insulin lispro (HumaLOG KwikPen) 100 unit/mL insulin pen zoledronic qtzp-wbdmyxge-yifiy (RECLAST) 5 mg/100 mL piggyback Allergies Allergen Reactions ??? Hydrocodone Other (See [...] Brother Review of Systems: Review of Systems Eyes: Negative for blurred vision and visual disturbance. Respiratory: Negative for shortness of breath and wheezing. Cardiovascular: Negative for chest pain and orthopnea. Gastrointestinal: Negative for abdominal pain, bowel incontinence, diarrhea, nausea and vomiting. Genitourinary: Negative for bladder incontinence, dysuria, frequency and hematuria. Musculoskeletal: Positive for back pain. Neurological: Positive for numbness. Negative for headaches. Psychiatric/Behavioral: Negative for dysphoric mood. The patient is not nervous/anxious. BP 138/74 (BP Location: Right arm, Patient Position: Sitting) Pulse 88 Temp 36.7 ??C (98.1 ??F)(Oral) Ht 167.6 cm (5' 6 ) Wt 110.8 kg (244 lb 3.2 oz) SpO2 97% BMI 39.41 kg/m?? Physical Exam: Physical Exam Vitals signs and nursing note reviewed. Constitutional: General: She is not in acute distress. Appearance: She is well-developed. She is obese. HENT: Head: Normocephalic and atraumatic. Right Ear: Tympanic membrane, ear canal and external ear normal. Left Ear: Tympanic membrane, ear canal and external ear normal. Mouth/Throat: Mouth: Mucous membranes are moist. Pharynx: Oropharynx is clear. No posterior oropharyngeal erythema. Eyes: Extraocular Movements: Extraocular movements intact. Conjunctiva/sclera: Conjunctivae normal. Pupils: Pupils are equal, round, and reactive to light. Neck: Musculoskeletal: Normal range of motion and neck supple. Cardiovascular: Rate and Rhythm: Normal rate and regular rhythm. Heart sounds: Normal heart sounds. No murmur. Pulmonary: Effort: Pulmonary effort is normal. Breath sounds: Normal breath sounds. Abdominal: General: Bowel sounds are normal. There is no distension. Palpations: Abdomen is soft. Tenderness: There is no tenderness. Musculoskeletal: Normal range of motion. Right lower leg: Edema present. Left lower leg: Edema present. Comments: 1+ pitting edema to BLE Lymphadenopathy: Cervical: No cervical adenopathy. Skin: General: Skin is warm and dry. Neurological: Mental Status: She is alert and oriented to person, place, and time. Psychiatric: Mood and Affect: Mood normal. Assessment & Plan: Diagnoses and all orders for this visit: Controlled type 2 diabetes mellitus with diabetic polyneuropathy, without long- term current use of insulin ([facility]) (Primary) - Hemoglobin A1c; Future - Lipid panel; Future - Comprehensive metabolic panel; Future - Albumin Creatinine Ratio, Urine; Future - insulin aspart U-100 (NovoLOG) 100 unit/mL injection; Inject 32 Units under the skin 3 (three) times a day before meals - insulin glargine (LANTUS,BASAGLAR) 100 unit/mL (3 mL) insulin pen; Inject 48 Units under the skindaily - metFORMIN (GLUCOPHAGE) 500 mg tablet; Take 2 tablets (1,000 mg total) by mouth 2 (two) times a day with meals - simvastatin (ZOCOR) 40 mg tablet; Take 1 tablet (40 mg total) by mouth nightly - Stable; Encouraged patient to continue monitoring blood sugars at home. Reviewed dietary intake and exercise for glycemic control to prevent end-organ damage. Recommend annual dilated eye exam. Check feet daily. Following A1c. Hypertension associated with type 2 diabetes mellitus (CMS/HCC) - amLODIPine (NORVASC) 5 mg tablet; Take 1 tablet (5 mg total) by mouth daily - cloNIDine (CATAPRES) 0.1 mg tablet; Take 0.5 tablets (0.05 mg total) by mouth 2 (two) times a day1/2 tablet by mouth 2xday - furosemide (LASIX) 20 mg tablet; Take 1 tablet (20 mg total) by mouth daily - irbesartan-hydroCHLOROthiazide (AVALIDE) 300-12.5 mg per tablet; Take 1 tablet by mouth daily - Stable; Reviewed medication and adverse effects. Encouraged patient to monitor BP at home. Reviewed signs/symptoms of hypertension/hypotension. Reviewed red flag warnings. Age-related osteoporosis without current pathological fracture - alendronate (FOSAMAX) 70 mg tablet; Take 1 tablet (70 mg total) by mouth every 7 days - Stable; on bisphosphonate therapy. Due for repeat DEXA in 2020. Chronic midline low back pain without sciatica - Following with pain management. Seasonal allergic rhinitis due to pollen - fluticasone propionate (Flonase) 50 mcg/actuation nasal spray; Administer 2 sprays into each nostril daily Gastroesophageal reflux disease, esophagitis presence not specified - pantoprazole DR (PROTONIX) 40 mg EC tablet; Take 1 tablet (40 mg total) by mouth 2 (two) times a day - Avoid spicy/greasy/acidic foods, excessive caffeine, alcohol, and tobacco. Encouraged weight loss. Sarcoidosis of lung (CMS/HCC) - Stable; following with pulmonology, Dr. Pierre. Encounter for screening mammogram for malignant neoplasm of breast - SCREENING MAMMOGRAM BILATERAL W FADI; Future BMI 39.0-39.9,adult - Recommend at least 150 minutes of physical activity weekly. Recommend limiting refined sugar, simple carbohydrates, fast foods, and processed foods. Increase intake of lean meats, low-fat dairy, fresh fruits/vegetables, and fiber. Drink plenty of water and eliminate sugar-sweetened beverages. Other orders - Flu Vaccine High Dose Tri PF 65y+ IM - Fluzone BMI Follow-up includes: education provided. Body mass index is 39.41 kg/m??. We discussed dose, use, and potential side effects of medication. Risks and interactions reviewed with patient. Indications for testing reviewed. Patient has been instructed to contact the office with any signs or symptoms that are of concern. The patient is to contact the office with any change in, worsening, or non-improvement in condition. Patient verbalized understanding. The patient was given the opportunity to ask all questions and to have all questions answered. Patient is agreement withthe plan of care. Bere Su NP Cosigned by Lalito England MD at 08/06/2019 12:28 PM [facility] documented in this encounter Plan of Treatment Not on file documented as of this encounter Results * (ABNORMAL) Albumin Creatinine Ratio, Urine (01/05/2020 11:23 AM CDT) Albumin Ur 24.1 mg/L [facility] Comment: Interpretive Data No reference range established. Current interpretive data was last revised 2018. Creatinine Ur 59.7 mg/dL [facility] Comment: Interpretive Data No reference range established. Current interpretive data was last revised 2018. Albumin Creatinine Ratio, Ur 40(H) 1 - 29 mg/g [facility] Urine 01/05/2020 11:2 3 AM CDT 01/05/2020 3:56 PM CDT us Bere Su NP LAB URINE ORDERABLES Final Result [facility] [id number] [address] Department [place] [address] * (ABNORMAL) Comprehensive metabolic panel (01/05/2020 11:23 AM CDT) Sodium 141 135 - 145 mmol/L [facility] Potassium, pl 4.3 3.3 - 4.9 mmol/L [facility] Chloride 97 97 - 110 mmol/L [facility] CO2 24 22 - 32 [facility]/L [facility] Anion gap 20(H) 2 - 15 mmol/L [facility] BUN 24 8 - 25 mg/dL [facility] Creatinine 1.44(H) 0.60 - 1.10 mg/dL [facility] Glucose 157 70 - 199 mg/dL [facility] Comment: Interpretive Data Fasting glucose >/= 126 [...] interpretive data was last revised 2017. Calcium 10.2 8.5 - 10.3 mg/dL [facility] Bilirubin, total 0.5 0.1 - 1.2 mg/dL [facility] Protein, pl 7.6 6.5 - 8.5 g/dL [facility] Albumin 4.4 3.5 - 5.0 g/dL [facility] Alk phos 56 40 - 130 Units/L [facility] ALT 23 7 - 45 Units/L [facility] AST 34 10 - 45 Units/L [facility] Blood specimen (specimen) 01/05/2020 11:23 AM CDT 01/05/2020 3:56 PM CDT Bere Su NP LAB BLOOD ORDERABLES Final Result [facility] [id number] [address] Department [place] [address] * Lipid panel (01/05/2020 11:23 AM CDT) Cholesterol 130 30 - 199 mg/dL [facility] Comment: [...] Data was last revised on 2018. Triglycerides 128 <=149 mg/dL [facility] Comment: Interpretive Data Ages [...] Data was last revised on 2018. HDL 42 >=40 mg/dL [facility] Comment: Interpretive Data Ages [...] 2018. LDL, calculated 62 <=129 mg/dL [facility] Comment: Interpretive Data Ages [...] was last revised on 2018. Non-HDL Cholesterol 88 mg/dL [facility] Comment: Interpretive Data Ages [...] ratio 3 [facility] Blood specimen (specimen) 01/05/2020 11:23 AM CDT 01/05/2020 3:56 PM CDT Bere Su NP LAB BLOOD ORDERABLES Final Result [facility] [id number] Department [place] [address] * (ABNORMAL) Hemoglobin A1c (01/05/2020 11:23 AM CDT) Hgb A1C 7.4(H) 4.0 - 5.6 % [facility] Estimated Average Glucose 166 mg/dL [facility] Comment: The ADA recommends reporting an estimated Average Glucose (eAG) with all Hemoglobin A1c results using the equation derived from a study of 507 normal and diabetic adults. ??Minority populations were underrepresented and children were not included. ?? (Diabetes Care 31:9030-6181, 2008). ??The eAG is not equivalent to a fasting glucose. Blood specimen (specimen) 01/05/2020 11:23 AM CDT 01/05/2020 3:56 PM CDT Bere Su NP LAB BLOOD ORDERABLES Final Result [facility] [id number] Department [place] [address] documented in this encounter Visit Diagnoses Diagnosis Controlled type 2 diabetes mellitus with diabetic polyneuropathy, without long- term current use of insulin (HCC)- Primary Hypertension associated with type 2 diabetes mellitus (HCC) Age-related osteoporosis without current pathological fracture Chronic midline low back pain without sciatica Seasonal allergic rhinitis due to pollen Gastroesophageal reflux disease, esophagitis presence not specified Sarcoidosis of lung (HCC) Sarcoidosis Encounter for screening mammogram for malignant neoplasm of breast BMI 39.0-39.9,adult documented in this encounter Discontinued Medications Medication Sig Discontinue Reason Start Date End Da te blood glucose diagnostic (CONTOUR NEXT STRIPS) strip USE ONE STRIP IN METER THREE TIMES A DAY Duplicate order 07/04/2014 08/02/2019 zoledronic rzrw-dnckyzrx-ujugl (RECLAST) 5 mg/100 mL piggyback tud Alternate therapy 08/14/2015 08/02/2019 alendronate (FOSAMAX) 70 mg tablet Take 70 mg by mouth every 7 days Take in the morning with a full glass of water, on an empty stomach, and do not take anything else by mouth or lie down for the next 30 min. Reorder 08/02/2019 amLODIPine (NORVASC) 2.5 mg tabletIndications:hy pertension Take 2.5 mg by mouth daily Alternate therapy 08/02/2019 insulin lispro (HumaLOG KwikPen) 100 unit/mL insulin pen Inject 0.3 mL (30 Units total) under the skin 3 (three) times a day with meals. 02/03/2017 08/02/2019 simvastatin (ZOCOR) 40 mg tablet Take 1 tablet (40 mg total) by mouth nightly. 01/16/2017 01/16/2018 LANTUS SOLOSTAR 100 unit/mL (3 mL) insulin pen INJECT 48 UNITS SUBCUTANEOUSLY DAILY 01/31/2017 03/26/2017 amLODIPine (NORVASC) 10 mg tabletIndications:Es sential hypertension,Bilater al leg edema Take 0.5 tablets (5 mg total) by mouth daily. 03/31/2017 03/31/2018 cloNIDine (CATAPRES) 0.1 mg tabletIndications:hy pertension Take 0.1 mg by mouth 2 (two) times a day 1/2 tablet by mouth 2xday Reorder 08/02/2019 fluticasone (FLONASE) 50 mcg/actuation nasal spray inhale 2 spray by Intranasal route every day in each nostril Reorder 05/26/2012 08/02/2019 furosemide (LASIX) 20 mg tabletIndications:Ed bon Take 20 mg by mouth daily Reorder 08/02/2019 insulin aspart U-100 (NovoLOG) 100 unit/mL injectionIndications :type 2 diabetes mellitus Inject 35 Units under the skin 3 (three) times a day before meals Reorder 08/02/2019 insulin glargine (LANTUS) 100 unit/mL (3 mL) insulin penIndications:type 2 diabetes mellitus Inject 0.44 mL (44 Units total) under the skin daily. Reorder 03/31/2017 08/02/2019 irbesartan-hydroCHLO ROthiazide (AVALIDE) 300-12.5 mg per tablet TAKE ONE TABLET BY MOUTH ONCE DAILY Reorder 08/18/2013 08/02/2019 metFORMIN (GLUCOPHAGE) 500 mg tablet TAKE TWO TABLETS BY MOUTH TWICE A DAY Reorder 06/24/2014 08/02/[address] (PROTONIX) 40 mg EC tablet TAKE ONE TABLET BY MOUTH TWICE A DAY Reorder 09/07/2014 08/02/2019 simvastatin (ZOCOR) 40 mg tabletIndications:hy perlipidemia Take 40 mg by mouth nightly Reorder 08/02/2019 documented as of this encounter Orders Immunization/Injection Count Last Ordered Date First Ordered Date FLU VACCINE HD TRI PF 65Y+ IM 1 08/02/2019 documented in this encounter Care Teams Child Care Centre Director Relationship Specialty Start Date End Date Clayton Sandoval MD [id number] [place], [place] [address] PCP - General 10/11/16 08/02/19 documented as of this encounter
--- OUTSIDE RECORDS SUMMARY | 2024-07-11 22:40 | XMS_ITS | Encounter Summary ---
Author Organization [facility] Address [address] [place] [address] Care Team Providers Care Housekeeper Cleaning Cooking Name Role Phone Lalito England MD Primary Care Provider [phone] [phone] Encounter Details Date Type Department Care Team (Latest Contact Info) Description 01/05/2020 11:16 AM CDT - 01/05/2020 11:59 PM CDT Hospital Encounter [facility] [address] [facility] [address] [place] [address] Lalito England MD [address] [place] [address] Bere Su, MARKOS [address] [place] [address] Controlled type 2 diabetes mellitus with diabetic polyneuropathy, without long-term current use of insulin ([facility]) Discharge Disposition: Discharge to home or self [...] on file 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 Gender Identity Not on file Sexual Orientation [...] tablet (81 mg total) by mouth signal constructor before breakfast 4 aspirin-acetaminop hen-caffeine (EXCEDRIN MIGRAINE) [...] with meals 360 tablet 1 08/02/2019 0 montelukast (SINGULAIR) 10 mg tablet take 1 tablet (10MG) by ORAL route every day in the evening 0 09/18/[address] (PROTONIX) 40 mg EC tabletIndications: Gastroesophageal reflux disease, esophagitis presence not specified Take 1 tablet (40 mg total) by mouth 2 (two) times a day 180 tablet 1 08/02/2019 0 pen needle, diabetic (BD INSULIN PEN NEEDLE UF MINI) 31 gauge x 3/16 needle 1 needle as directed 300 each 3 12/23/2016 0 simvastatin (ZOCOR) 40 mg tabletIndications: hyperlipidemia Take 1 tablet (40 mg total) by mouth nightly 90 tablet 1 08/02/2019 0 traMADol (ULTRAM) 50 mg tablet take [...] Priority Date/Time Associated Diagnosis Comments EGFR Routine 01/05/2020 11:23 AM CDT Controlled type 2 diabetes mellitus with diabetic polyneuropathy, without long-term current use of insulin ([facility]) ALBUMIN CREATININE RATIO, URINE Routine 01/05/2020 11:23 AM CDT Controlled type 2 diabetes mellitus with diabetic polyneuropathy, without long-term current use of insulin ([facility]) HEMOGLOBIN A1C Routine 01/05/2020 11:23 AM CDT Controlled type 2 diabetes mellitus with diabetic polyneuropathy, without long-term current use of insulin ([facility]) LIPID PANEL Routine 01/05/2020 11:23 AM CDT Controlled type 2 diabetes mellitus with diabetic polyneuropathy, without long-term current use of insulin ([facility]) COMPREHENSIVE METABOLIC PANEL Routine 01/05/2020 11:23 AM CDT Controlled type 2 diabetes mellitus with diabetic polyneuropathy, without long-term current use of insulin ([facility]) documented in this encounter Results * eGFR (01/05/2020 11:23 AM CDT) [facility] eGFR 37 mL/min/1.7 3 m2 ANN MENDES Comment: Interpretive Data Reference Interval Normal ?>/= 90 mL/min/1.73m2 Mildly decreased* ? 60 - 89 mL/min/1.73m2 Mildly to moderately decreased ?45 - 59 mL/min/1.73m2 Moderately to severely decreased ??30 - 44 mL/min/1.73m2 Severely decreased ?15 - 29 mL/min/1.73m2 Kidney Failure ?< 15 ??mL/min/1.73m2 *Relative to young adult level If -Mongolian multiply value by 1.16. Estimated glomerular filtration [...] was last reviewed 2016. Blood specimen (specimen) 01/05/2020 11:23 AM CDT 01/05/2020 4:01 PM CDT Bere Su NP LAB BLOOD ORDERABLES Final Result Performing Organization Address [facility] de Phone Number ANN [phone] [place] [address] * (ABNORMAL) Hemoglobin A1c (01/05/2020 11:23 AM CDT) Hgb A1C 7.4(H) 4.0 - 5.6 % ANN Estimated Average Glucose 166 mg/dL ANN Comment: The ADA recommends reporting an estimated Average Glucose (eAG) with all Hemoglobin A1c results using the equation derived from a study of 507 normal and diabetic adults. ??Minority populations were underrepresented and children were not included. ?? (Diabetes Care 31:6309-3110, 2008). ??The eAG is not equivalent to a fasting glucose. Blood specimen (specimen) 01/05/2020 11:23 AM CDT 01/05/2020 3:56 PM CDT Bere Su NP LAB BLOOD ORDERABLES Final Result Performing Organization Address [facility] Co de Phone Number ANN [phone] [place] [address] * Lipid panel (01/05/2020 11:23 AM CDT) Cholesterol 130 30 - 199 mg/dL ANN Comment: Interpretive Data Ages < [...] on 2018. Triglycerides 128 <=149 mg/dL ANN MENDES Comment: Interpretive Data [...] on 2018. Non-HDL Cholesterol 88 mg/dL ANN Comment: Interpretive Data Ages < [...] Chol/HDL ratio 3 ANN Blood specimen (specimen) 01/05/2020 11:23 AM CDT 01/05/2020 3:56 PM CDT Bere Su NP LAB BLOOD ORDERABLES Final Result ANN MENDES [address] [facility] [place] [address] * (ABNORMAL) Comprehensive metabolic panel (01/05/2020 11:23 AM CDT) Sodium 141 135 - 145 mmol/L CERNER CH Potassium, pl 4.3 3.3 - 4.9 mmol/L [facility] Chloride 97 97 - 110 mmol/L [facility] CO2 24 22 - 32 mmol/L [facility] Anion gap 20(H) 2 - 15 mmol/L [facility] BUN 24 8 - 25 mg/dL [facility] Creatinine 1.44(H) 0.60 - 1.10 mg/dL C[facility] CH Glucose 157 70 - 199 mg/dL CERNER CH Comment: [...] LAB BLOOD ORDERABLES Final Result ANN MENDES [address] Department [place] [address] * (ABNORMAL) Albumin Creatinine Ratio, Urine (01/05/2020 11:23 AM CDT) Albumin Ur 24.1 mg/L ANN MENDES Comment: Interpretive Data No reference range established. Current interpretive data was last revised 2018. Creatinine Ur 59.7 mg/dL ANN MENDES Comment: Interpretive Data No reference range established. Current interpretive data was last revised 2018. Albumin Creatinine Ratio, Ur 40(H) 1 - 29 mg/g ANN Urine 01/05/2020 11:2 3 AM CDT 01/05/2020 3:56 PM CDT Bere Su NP LAB URINE ORDERABLES Final Result ANN MENDES [address] [place] [address] documented in this encounter Visit Diagnoses Diagnosis Controlled type 2 diabetes mellitus with diabetic polyneuropathy, without long- term current use of insulin (HCC) documented in this encounter Care Teams Housekeeper Cleaning Cooking Relationship Specialty Start Date End Date Lalito England MD [address] [place] [address] PCP - General 08/03/19 documented as of this encounter
--- OUTSIDE RECORDS SUMMARY | 2024-07-11 22:40 | XMS_ITS | Encounter Summary ---
Author Organization [facility] Healthcare Address [address] [place] [address] Care Team Providers Care Core Drill Operator Helper Name Role Phone Lalito England MD Primary Care Provider [phone] Reason for Referral * Diagnostic Imaging (Routine) - Closed Specialty Diagnoses / Procedures Referred By Biankaac t Referred To Contact Diagnoses Peripheral vascular disease, unspecified (HCC) Procedures US Arterial Doppler Lower Extremity Bilateral Autumn Tamez DPM [address] [address] Phone: tel: fax: Referral ID Status Reason Start Date Expiration Date Visits Re quested Visits Authorized [id number] Closed 05/29/2020 06/28/2021 1 1 TENANCE MECHANIC ELEVATORS Reason for Visit * Diagnostic Imaging (Routine) - Closed Specialty Diagnoses / Procedures Referred By Contac t Referred To Contact Diagnoses Peripheral vascular disease, unspecified (HCC) Procedures US Arterial Doppler Lower Extremity Bilateral Autumn Tamez DPM [address] [address] Phone: tel: fax: Referral ID Status Reason Start Date Expiration Date Visits Re quested Visits Authorized [id number] Closed 05/29/2020 06/28/2021 1 1 Encounter Details Date Type Department Care Team (Latest Contact Info) Description 07/04/2020 12:24 PM MAINTENANCE MECHANIC ELEVATORS - 07/04/2020 11:59 PM MAINTENANCE MECHANIC ELEVATORS Hospital Encounter [facility] [address] [place] [address] Autumn Tamez, EDUARDO [id number] [place] [address] Peripheral vascular disease, unspecified (CMS/HCC) Discharge Disposition: Discharge to home or self [...] on file Legal Sex Female 11:52 PM MAINTENANCE MECHANIC ELEVATORS Gender Identity Not on file Sexual Orientation [...] 1 tablet (81 mg total) by mouth security manager before breakfast 4 aspirin-acetaminop hen-caffeine (EXCEDRIN [...] Name Priority Date/Time Associated Diagnosis Comments US ARTERIAL DOPPLER LOWER EXTREMITY BILATERAL Schedule Routine, Read Routine (OP Routine) 07/04/2020 1:26 PM MAINTENANCE MECHANIC ELEVATORS Peripheral vascular disease, unspecified ([facility]) documented in this encounter Results * US Arterial Doppler Lower Extremity Bilateral (07/04/2020 1:26 PM MAINTENANCE MECHANIC ELEVATORS) Anatomical Region Laterality Modality Vascular Bilateral Ultrasound 07/04/2020 1:44 PM MAINTENANCE MECHANIC ELEVATORS Impressions 07/04/2020 1:50 PM MAINTENANCE MECHANIC ELEVATORS 1. ??Borderline normal/mild obstructive ankle brachial index in the left leg. ??Some of the left lower extremity vessels are probably calcified and noncompressible. 2. ??Probably calcified vessels in the right lower extremity limiting compression. Electronically signed by: Zack Almeida M.D. Narrative 07/04/2020 1:50 PM MAINTENANCE MECHANIC ELEVATORS EXAMINATION: US ARTERIAL DOPPLER LOWER EXTREMITY BILATERAL ORDERING HEALTHCARE PROVIDER: AUTUMN TAMEZ HISTORY: Peripheral vascular disease, unspecified. COMPARISON: None available TECHNIQUE: Sonographic evaluation of the bilateral lower extremities with ankle-brachial index calculations. FINDINGS: The individual pressures are as follows: Right brachial artery: 141 mmHg. Right proximal thigh: 189 mmHg. Right distal thigh: 175 mmHg. Right proximal le mmHg. Right posterior tibial artery: 179 mmHg. Right dorsalis pedis artery: 252 mmHg. Right ankle/brachial index: 1.6. Vessels in the proximal more distal thigh as well as the proximal leg, posterior tibial artery and dorsalis pedal artery are likely calcified and noncompressible. Left brachial artery: 158 mmHg. Left proximal thigh: 268 mmHg. Left distal thigh: 169 mmHg. Left proximal leg: Greater than 300 mmHg. Left posterior tibial artery: Greater than 300 mmHg. Left dorsalis pedis artery: 146 mmHg. Left ankle/brachial index: There 0.9. Biphasic waveform. Vasculature within the left proximal thigh, proximal lower leg, and posterior tibial artery are likely calcified arteries noncompressible. Procedure Note Zack Almeida MD - 07/04/2020 EXAMINATION: US ARTERIAL DOPPLER LOWER EXTREMITY BILATERAL ORDERING HEALTHCARE PROVIDER: AUTUMN TAMEZ HISTORY: Peripheral vascular disease, unspecified. COMPARISON: None available TECHNIQUE: Sonographic evaluation of the bilateral lower extremities with ankle-brachial index calculations. FINDINGS: The individual pressures are as follows: Right brachial artery: 141 mmHg. Right proximal thigh: 189 mmHg. Right distal thigh: 175 mmHg. Right proximal le mmHg. Right posterior tibial artery: 179 mmHg. Right dorsalis pedis artery: 252 mmHg. Right ankle/brachial index: 1.6. Vessels in the proximal more distal thigh as well as the proximal leg, posterior tibial artery and dorsalis pedal artery are likely calcified and noncompressible. Left brachial artery: 158 mmHg. Left proximal thigh: 268 mmHg. Left distal thigh: 169 mmHg. Left proximal leg: Greater than 300 mmHg. Left posterior tibial artery: Greater than 300 mmHg. Left dorsalis pedis artery: 146 mmHg. Left ankle/brachial index: There 0.9. Biphasic waveform. Vasculature within the left proximal thigh, proximal lower leg, and posterior tibial artery are likely calcified arteries noncompressible. IMPRESSION: 1. Borderline normal/mild obstructive ankle brachial index in the left leg. Some of the left lower extremity vessels are probably calcified and noncompressible. 2. Probably calcified vessels in the right lower extremity limiting compression. Electronically signed by: Zack Almeida M.D. us Autumn Tamez DPM IMG US PROCEDURES Final Re sult documented in this encounter Visit Diagnoses Diagnosis Peripheral vascular disease, unspecified (HCC) Peripheral vascular disease, unspecified documented in this encounter Care Teams Core Drill Operator Helper Relationship Specialty Start Date End Date Lalito England MD [address] [place] [address] PCP - General 08/03/19 documented as of this encounter
--- OUTSIDE RECORDS SUMMARY | 2024-07-11 22:40 | XMS_ITS | Encounter Summary ---
Author Organization [facility] Care Team Providers Care Leaf Coverer Name Role Phone Clayton Sandoval MD Primary Care Provider + Encounter Details Date Type Department Care Team (Latest Contact Info) Description 08/02/2019 Travel Social History Tobacco Use Types Packs/Day Years Used Date Smoking Tobacco: Never Smokeless Tobacco: Never Alcohol Use Standard Drinks/Week Comments Yes 0 (1 standard drink = 0.6 oz pur e alcohol) occasional PHQ-2 Answer Date Recorded PHQ-2 Score 0 08/02/2019 Comments No Sex and Gender Information Value Date Recorded Sex Assigned at Not on file Legal Sex Female 11:52 PM RISK MGR Gender Identity Not on file Sexual Orientation Not on file documented as of this encounter Plan of Treatment Not on file documented as of this encounter Visit Diagnoses Not on filedocumented in this encounter Care Teams Leaf Coverer Relationship Specialty Start Date End Date Clayton Sandoval MD [address] [place] [id number] PCP - General 10/11/16 08/02/19 documented as of this encounter
--- OUTSIDE RECORDS SUMMARY | 2024-07-11 22:40 | XMS_ITS | Encounter Summary ---
Author Organization [facility] Address [address] [place] [address] Care Team Providers Care Mechanical Maintenance Name Role Phone Lalito England MD Primary Care Provider [phone] Reason for Visit * Reason Onset Date Comments Test Results 09/25/2020 kidney US Encounter Details Date Type Department Care Team (Late st Contact Info) Description 09/25/2020 Telephone [facility] [address] [place] [address] Lalito England MD [address] [place] [address] Test Results (kidney US) Social History Tobacco Use Types Packs/Day Years [...] on file Legal Sex Female 11:52 PM ATTENDING PSYCHIATRIST Gender Identity Not on file Sexual Orientation Not on file documented as of this encounter Miscellaneous Notes * Telephone Encounter - Katya Dalal MA - 09/26/2020 3:32 PM CDT Pt notified. * Telephone Encounter - Katya Dalal MA - 09/25/2020 4:50 PM CDT LMOM * Telephone Encounter - Katya Dalal MA - 09/25/2020 4:50 PM CDT ----- Message from Lalito England MD sent at 09/25/2020 1:17 PM CDT ----- Testing is negative. Please notify patient of results. F/U as scheduled and/or as needed. No abnormalities noted on kidney ultrasound. Please notify patient. documented in this encounter Plan of Treatment Not on file documented as of this encounter Visit Diagnoses Not on filedocumented in this encounter Care Teams Mechanical Maintenance Relationship Specialty Start Date End Date Lalito England MD [address] [place] [address] PCP - General 08/03/19 documented as of this encounter
--- OUTSIDE RECORDS SUMMARY | 2024-07-11 22:40 | XMS_ITS | Encounter Summary ---
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 [address] PCP - General 10/11/16 08/02/19 documented as of this encounter
--- OUTSIDE RECORDS SUMMARY | 2024-07-11 22:40 | XMS_ITS | Encounter Summary ---
Author Organization [facility] Address [address] [place] [address] Care Team Providers Care Hemming And Tacking Machine Operator Name Role Phone Lalito England MD Primary Care Provider [phone] [phone] Encounter Details Date Type Department Care Team (Late st Contact Info) Description 09/07/2019 Telephone [facility] [address] [place] [address] Lalito England MD [address] [place] [address] Social History Tobacco Use Types Packs/Day Years Used Date Smoking Tobacco: Never Smokeless Tobacco: Never Alcohol Use Standard Drinks/Week Comments Yes 0 (1 standard drink = 0.6 oz pur e alcohol) occasional PHQ-2 Answer Date Recorded PHQ-2 Score 0 08/02/2019 Comments No Sex and Gender Information Value Date Recorded Sex Assigned at Not on file Legal Sex Female 11:52 PM HEALTH CLINICIAN Gender Identity Not on file Sexual Orientation Not on file documented as of this encounter Miscellaneous Notes * Telephone Encounter - Katya Dalal MA - 09/07/2019 9:07 AM CST Mailed letter to patient asking if they have had outstanding mammogram completed. TH CLINICIAN documented in this encounter Plan of Treatment Not on file documented as of this encounter Visit Diagnoses Not on filedocumented in this encounter Care Teams Hemming And Tacking Machine Operator Relationship Specialty Start Date End Date Lalito England MD [address] [place] [address] PCP - General 08/03/19 documented as of this encounter
--- OUTSIDE RECORDS SUMMARY | 2024-07-11 22:40 | XMS_ITS | Encounter Summary ---
Author Organization [facility] Address [address] [place] [address] Care Team Providers Care Gate Watchman Name Role Phone Lalito England MD Primary Care Provider [phone] [phone] Encounter Details Date Type Department Care Team (Late st Contact Info) Description 12/12/2020 Orders Only [facility] [address] [place] [id number] Bere Su, SMT TECHNICIAN [address] [place] [address] Age-related osteoporosis without current pathological fracture Social History Tobacco Use Types Packs/Day Years [...] on file 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 Gender Identity Not on file Sexual Orientation Not on file documented as of this encounter Plan of Treatment Not on file documented as of this encounter Visit Diagnoses Diagnosis Age-related osteoporosis without current pathological fracture documented in this encounter Orders Imaging Orders Without Results Count Last Order ed Date First Ordered Date DEXA AXIAL SKELETON BONE DEN SITY 1 OR MORE SITES 1 12/12/2020 documented in this encounter Care Teams Gate Watchman Relationship Specialty Start Date End Date Lalito England MD [address] [place] [address] PCP - General 08/03/19 documented as of this encounter
--- OUTSIDE RECORDS SUMMARY | 2024-07-11 22:40 | XMS_ITS | Encounter Summary ---
Author Organization [facility] Medical Group Address [address] [place] [address] Care Team Providers Care Crayon Painter Name Role Phone Lalito England MD Primary Care Provider [phone] [phone] Reason for Visit * Reason Comments Follow-up Pt here for 3 month f/u appt Encounter Details Date Type Department Care Team (Late st Contact Info) Description 02/09/2021 10:45 AM CDT Office Visit [facility] [address] [place] [address] Lalito England MD [address] [place] [address] Controlled type 2 diabetes mellitus with diabetic polyneuropathy, without long-term current use of insulin (CMS/HCC) ([facility]) (Primary Dx); Fatigue, unspecified type; Cervicalgia; Hypertension associated with diabetes (HCC); Type 2 diabetes mellitus with hyperlipidemia (CMS/HCC) (HCC); BMI 39.0-39.9,adult; Severe obesity (BMI 35.0-39.9) with comorbidity (CMS/HCC) (HCC); Stage 3b chronic kidney disease (HCC); Controlled type 2 diabetes mellitus with stage 3 chronic kidney disease, with long-term current use of insulin (HCC) Social History Tobacco Use Types Packs/Day [...] on file 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 Gender Identity Not on file Sexual Orientation Not on file documented as of this encounter Last Filed Vital Signs Vital Sign Reading Time Taken Comments Blood Pressure 124/56 02/09/2021 10:48 AM CDT Pulse 77 02/09/2021 10:48 AM CDT Temperature 36.1 ??C (96.9 ??F) 02/09/2021 10:48 AM C DT Respiratory Rate 16 02/09/2021 10:48 AM CDT Oxygen Saturation 97% 02/09/2021 10:48 AM CDT Inhaled Oxygen Concentration - - Weight 111.1 kg (245 lb) 02/09/2021 10:48 AM CDT Height 167.6 cm (5' 5.98 ) 02/09/2021 10:48 AM C DT Body Mass Index 39.57 02/09/2021 10:48 AM CDT documented in this encounter Ordered Prescriptions Prescription Sig Dispense Quantity Refills Last Filled Start Date End Date gabapentin (NEURONTIN) 300 mg capsule Take 1 capsule (300 mg total) by mouth 4 (four) times a day 360 capsule 3 02/09/2021 1 tiZANidine (ZANAFLEX) 2 mg tablet Take 1 tablet (2 mg total) by mouth every 6 (six) hours as needed for muscle spasms 30 tablet 1 02/09/2021 2 documented in this encounter Progress Notes * Lalito England MD - 02/09/2021 10:45 AM CDT Images from the original note were not included. [facility]iss [facility] Chief Complaint. Chief Complaint Patient presents with ??? Follow-up Pt here for 3 month f/u appt HPI. Patient is a 70 y.o. female Patient continues to follow with Dr. Mac for CKD. nomi with no evidence of hydronephrosis. Most likely CKD secondayr to type 2 DM. Nomi notes itnermittent grinding of the neck and would recommend tizanidine. No paresthesia. No weakness in to the upper extremity. Hx of prior Cervical disc surgery x3. Diabetes She presents for her follow-up diabetic visit. She has type 2 diabetes mellitus. Her disease coursehas been stable. Pertinent negatives for hypoglycemia include no dizziness, headaches, nervousness/anxiousness, sleepiness or tremors. Associated symptoms include fatigue and foot paresthesias. Pertinent negatives for diabetes include no chest pain, no foot ulcerations, no visual change and no weakness. Symptoms are stable. Diabetic complications include nephropathy and peripheral neuropathy. Risk factors for coronary artery disease include diabetes mellitus, dyslipidemia, hypertension, obesity, post-menopausal, sedentary lifestyle and stress. Current diabetic treatment includes insulin injections and [...] moses is being taken. 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 Hypertension This is a chronic problem. The current episode started more than 1 year ago. The problem has been waxing and waning since onset. The problem is controlled. Associated symptoms include malaise/fatigueand peripheral edema. Pertinent negatives include no chest pain, headaches, neck pain, orthopnea, palpitations or shortness of breath. Risk factors for coronary artery disease include dyslipidemia, diabetes mellitus, obesity, post-menopausal state, sedentary lifestyle and stress. Past treatments include angiotensin blockers, diuretics, calcium channel blockers and central alpha agonists. The current treatment provides moderate improvement. Compliance problems include diet and exercise. Hypertensive end-organ damage includes kidney disease. There is no history of CAD/[place]. Identifiable causes ofhypertension include chronic renal disease. Hyperlipidemia This is [...] exercise. Riskfactors for coronary artery disease include dyslipidemia, hypertension, diabetes mellitus, obesity,stress, a sedentary lifestyle and post-menopausal. Past Medical History: Diagnosis Date ??? Benign hypertension with CKD (chronic kidney disease) stage III ??? Gastroesophageal reflux disease GERD ??? HX OTHER MEDICAL PMO ??? 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 HX OTHER MEDICAL [facility] OA ??? HX OTHER MEDICAL 2008 Discectomy, cervical ??? HX OTHER MEDICAL Fall ??? HX OTHER MEDICAL Left proximal femoral Gamma Nail fixation proximal; Comments: [facility] 07/25/2015 - ??? HX OTHER MEDICAL RTKR 2001.; Comments: [facility] 07/25/2015 - ??? HX OTHER MEDICAL LTKR 2006.; Comments: [facility] 07/25/2015 - ??? HX OTHER MEDICAL Back surgery 2006.; Comments: J 07/25/2015 - ??? HX OTHER MEDICAL Cervical disc surg. 2007.; Comments: [facility] 07/25/2015 - ??? HX OTHER MEDICAL Breast reduction 2008.; Comments: [facility] 07/25/2015 - ??? HX OTHER MEDICAL left hip and leg surgery ??? HX OTHER MEDICAL conversion of previous hip arthroplasty left hip; Comments: [facility] unit 02/06 - 02/17/16 for rehabilitation. [...] tablet aspirin 81 mg enteric coated tablet hbrbzyi-wbhumlapswfdz-fbxuufhu (EXCEDRIN MIGRAINE) 250-250-65 mg per tablet blood glucose diagnostic (Contour Next Test Strips) strip blood-glucose meter (CONTOUR NEXT USB METER) misc calcium carbonate-vitamin D3 500 mg(1,250mg) -400 unit tablet cloNIDine (CATAPRES) 0.1 mg tablet fluticasone propionate (FLONASE) 50 mcg/actuation nasal spray furosemide (LASIX) 20 mg tablet gabapentin (NEURONTIN) 300 mg capsule irbesartan-hydroCHLOROthiazide (AVALIDE) 300-12.5 mg per tablet lancets (MICROLET LANCET) misc LANTUS 100 unit/mL (3 mL) pen for injection metFORMIN (GLUCOPHAGE) 500 mg tablet montelukast (SINGULAIR) 10 mg tablet NovoLOG 100 unit/mL (3 mL) pen for injection pantoprazole DR (PROTONIX) 40 mg EC tablet pen needle, diabetic (BD Ultra-Fine Mini Pen Needle) 31 gauge x 3/16 needle simvastatin (ZOCOR) 40 mg tablet tiZANidine (ZANAFLEX) 2 mg tablet traMADol (ULTRAM) 50 mg tablet gabapentin (NEURONTIN) 300 mg capsule tiZANidine (ZANAFLEX) 2 mg tablet Allergies Allergen Reactions ??? Hydrocodone [...] Hematological: Negative for adenopathy. Psychiatric/Behavioral: Negative for decreased concentration, sleep disturbance and suicidal ideas.The patient is not nervous/anxious. BP 124/56 (BP Location: Left arm, Patient Position: Sitting) Pulse 77 Temp 36.1 ??C (96.9 ??F) (Temporal) Resp 16 Ht 167.6 cm (5' 5.98 ) Wt 111.1 kg (245 lb) SpO2 97% BMI 39.57 kg/m?? Physical Exam: Physical Exam Vitals reviewed. [...] Left lower leg: Edema present. Comments: 1+ edema bilaterallty Lymphadenopathy: Cervical: No cervical adenopathy. Skin: Findings: No erythema. Neurological: Mental Status: She is alert and oriented to person, place, and time. Motor: Weakness present. Gait: Gait abnormal. Psychiatric: Thought Content: Thought content normal. Assessment & Plan: Diagnoses and all orders for this visit: Controlled type 2 diabetes mellitus with diabetic polyneuropathy, without long- term current use of insulin (CMS/HCC) (Primary) - POCT hemoglobin A1c - POCT microalbumin Secondary prevnetion. WIll conttinue to follow and montior resopnse. Fatigue, unspecified type - CBC with auto differential; Future - T4, free; Future - TSH; Future - Iron profile w/ IBC; Future - Vitamin B12; Future Most likely multifactorial and related to underlying CKD. Check labwork. Cervicalgia Prn tizanidine. Hypertension associated with diabetes (CMS/HCC) Stable and will continue to follow. Type 2 diabetes mellitus with hyperlipidemia (CMS/HCC) Continue on statin medication. BMI 39.0-39.9,adult Reviwed imapct of incrased BMI and montior resopnse. Reviwed goal of 150min/week aerobic exercise. Severe obesity (BMI 35.0-39.9) with comorbidity (CMS/HCC) Other orders - tiZANidine (ZANAFLEX) 2 mg tablet; Take 1 tablet (2 mg total) by mouth every 6 (six) hours as needed for muscle spasms - gabapentin (NEURONTIN) 300 mg capsule; Take 1 capsule (300 mg total) by mouth 4 (four) times a day BMI Follow-up includes: nutrition counseling. Body mass index is 39.57 kg/m??. Lalito England MD documented in this encounter Plan of Treatment Not on file documented as of this encounter Procedures Procedure Name Priority Date/Time Associated Diagnosis Comments POCT MICROALBUMIN Routine 02/09/2021 11: 38 AM CDT Controlled type 2 diabetes mellitus with diabetic polyneuropathy, without long-term current use of insulin (CMS/HCC) ([facility]) POCT HEMOGLOBIN A1C Routine 02/09/2021 1 0:59 AM CDT Controlled type 2 diabetes mellitus with diabetic polyneuropathy, without long-term current use of insulin ([facility]/HCC) (HCC) documented in this encounter Results * POCT microalbumin (02/09/2021 11:38 AM CDT) Microalbumin, POC 30 mg/L Comment:ALB 30 MG CRE 100 MG A:C <30 MG Urine 02/09/2021 11:3 8 AM CDT Lalito England MD POINT OF CARE TEST ORDERA BLES Final Result * (ABNORMAL) Vitamin B12 (02/09/2021 11:29 AM CDT) Vitamin B12 205(L) 230 - 1,250 pg/mL [facility] Blood specimen (specimen) 02/09/2021 11:29 AM CDT 02/09/2021 3:45 PM CDT Lalito England MD LAB BLOOD ORDERABLES Jessica l Result Performing Organization Address [facility] Co de Phone Number ANN [address] [employer] [place], [place] [id number] * (ABNORMAL) Iron profile w/ IBC (02/09/2021 11:29 AM CDT) Iron 36 35 - 145 mcg/dl [facility] TIBC 404(H) 250 - 400 mcg/dL [facility] Transferrin saturation 9(L) 20 - 50 % [facility] Blood specimen (specimen) 02/09/2021 11:29 AM CDT 02/09/2021 3:45 PM CDT Lalito England MD LAB BLOOD ORDERABLES Jessica l Result [facility] [address] [place] [address] * TSH (02/09/2021 11:29 AM CDT) Thyroid Stimulating Hormone 3.62 0.30 - 4.20 mcIUnit/mL [facility] Blood specimen (specimen) 02/09/2021 11:29 AM CDT 02/09/2021 3:45 PM CDT Lalito England MD LAB BLOOD ORDERABLES Jessica l Result ANN MENDES [address] [facility] [place] [address] * T4, free (02/09/2021 11:29 AM CDT) Pathologist [facility] Free T4 1.42 0.90 - 1.70 ng/dL [facility] Blood specimen (specimen) 02/09/2021 11:29 AM CDT 02/09/2021 3:45 PM CDT Lalito England MD LAB BLOOD ORDERABLES Jessica l Result Performing Organization Address [facility] Co de Phone Number ANN [address] Department [place] [place] [address] * (ABNORMAL) CBC with auto differential (02/09/2021 11:29 AM CDT) [facility] WBC 9.9 3.8 - 9.9 K/cumm [facility] Hgb 9.4(L) 11.9 - 15.5 g/dL [facility] Hct 31.7(L) 35.6 - 45.5 % [facility] Plt 274 150 - 400 K/cumm [facility] MPV 10.3 9.1 - 12.3 fL [facility] RBC 3.76(L) 3.90 - 5.20 M/cumm [facility] CH MCV 84.3 81.3 - 96.4 fL [facility] MCH 25.0(L) 27.1 - 33.3 pg [facility] MCHC 29.7(L) 32.3 - 35.7 g/dL [facility] CH RDW CV 16.1(H) 11.1 - 14.9 % [facility] CH RDW SD 49.2(H) 35.7 - 48.1 fL [facility] CH NRBC abs 0.00 0.00 - 0.01 K/cumm [facility] CH Blood specimen (specimen) 02/09/2021 11:29 AM CDT 02/09/2021 3:45 PM CDT Lalito England MD LAB BLOOD ORDERABLES Jessica l Result ANN MENDES [address] Department [place] [address] * (ABNORMAL) POCT hemoglobin A1c (02/09/2021 10:59 AM CDT) Hemoglobin A1C, POC 9.2 Blood specimen (specimen) 02/09/2021 10:59 AM CDT Lalito England MD POINT OF CARE TEST ORDERA BLES Final Result documented in this encounter Visit Diagnoses Diagnosis Controlled type 2 diabetes mellitus with diabetic polyneuropathy, without long- term current use of insulin (HCC)- Primary Fatigue, unspecified type Cervicalgia Hypertension associated with diabetes (HCC) Unspecified essential hypertension Type 2 diabetes mellitus with hyperlipidemia (HCC) BMI 39.0-39.9,adult Severe obesity (BMI 35.0-39.9) with comorbidity (HCC) Stage 3b chronic kidney disease (HCC) Controlled type 2 diabetes mellitus with stage 3 chronic kidney disease, with long-term current use of insulin (HCC) documented in this encounter Discontinued Medications Medication Sig Discontinue Reason Start Date End Da te tiZANidine (ZANAFLEX) 2 mg tablet Take 1 tablet (2 mg total) by mouth every 6 (six) hours as needed for muscle spasms Reorder 02/11/2020 02/09/2021 gabapentin (NEURONTIN) 300 mg capsule take 2 Capsule by oral route every day Reorder 07/21/2015 02/09/2021 documented as of this encounter Care Teams Crayon Painter Relationship Specialty Start Date End Date [place] [address] [place] [address] PCP - General 08/03/19 documented as of this encounter
--- OUTSIDE RECORDS SUMMARY | 2024-07-11 22:40 | XMS_ITS | Encounter Summary ---
Author Organization [facility] Medical [facility] Address [address] [place] [address] Care Team Providers Care Sleeping Room Cleaner Name Role Phone Lalito England MD Primary Care Provider [phone] Encounter Details Date Type Department Care Team (Late st Contact Info) Description 01/07/2020 Telephone [facility] [address] [place] [address] Lalito England MD [address] [place] [address] Social History Tobacco Use Types Packs/Day Years Used Date Smoking Tobacco: Never Smokeless Tobacco: Never Alcohol Use Standard Drinks/Week Comments Yes 0 (1 standard drink = 0.6 oz pur e alcohol) occasional PHQ-2 Answer Date Recorded PHQ-2 Score 0 08/02/2019 Comments No Sex and Gender Information Value Date Recorded Sex Assigned at Not on file 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 Please mail to Criss [facility]. Thank you. documented in this encounter Plan of Treatment Not on file documented as of this encounter Visit Diagnoses Not on filedocumented in this encounter Care Teams Sleeping Room Cleaner Relationship Specialty Start Date End Date Lalito England MD [address] [place] [address] PCP - General 08/03/19 documented as of this encounter
--- OUTSIDE RECORDS SUMMARY | 2024-07-11 22:40 | XMS_ITS | Encounter Summary ---
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 Gender Identity Not on file Sexual [...] 1 tablet (81 mg total) by mouth supervisor sheet manufacturing before breakfast 4 aspirin-acetaminop hen-caffeine (EXCEDRIN MIGRAINE) [...] EACH NOSTRIL EVERY DAY 48 mL 1 10/16/2020 1 furosemide (LASIX) 20 mg tabletIndications: Hypertension associated with type 2 diabetes mellitus (HCC) TAKE 1 TABLET BY MOUTH EVERY DAY 90 tablet 1 08/21/2020 1 gabapentin (NEURONTIN) 300 mg capsule Take 1 capsule (300 mg total) by mouth 4 (four) times a day 360 capsule 3 02/09/2021 1 irbesartan-hydroCH LOROthiazide (AVALIDE) 300-12.5 mg per tabletIndications: Hypertension associated with type 2 diabetes mellitus (HCC) TAKE 1 TABLET BY MOUTH EVERY DAY 90 tablet 1 09/25/2020 1 LANTUS 100 unit/mL (3 mL) pen for injectionIndicatio ns:Controlled type 2 diabetes mellitus with diabetic polyneuropathy, without long-term current use of insulin ([facility]) INJECT 48 UNITS UNDER THE SKIN DAILY 30 pen 1 01/16/2021 1 metFORMIN (GLUCOPHAGE) 500 mg tablet TAKE 1 TABLET BY MOUTH EVERY DAY WITH BREAKFAST 90 tablet 1 12/18/2020 1 montelukast (SINGULAIR) 10 mg tablet take 1 tablet (10MG) by ORAL route every day in the evening 0 09/18/2016 2 NovoLOG 100 unit/mL (3 mL) pen for injectionIndicatio ns:Controlled type 2 diabetes mellitus with diabetic polyneuropathy, without long-term current use of insulin ([facility]) INJECT 32 UNITS UNDER THE SKIN 3 (THREE) TIMES A DAY BEFORE MEALS 75 pen 2 11/13/[address] (PROTONIX) 40 mg EC tabletIndications: Gastroesophageal reflux disease TAKE 1 TABLET BY MOUTH TWICE A DAY 180 tablet 1 01/01/2021 1 pen needle, diabetic (BD Ultra-Fine Mini Pen Needle) 31 gauge x 3/16 needle 1 needle as directed 300 each 3 01/01/2021 1 simvastatin (ZOCOR) 40 mg tabletIndications: hyperlipidemia [...] Procedure Name Priority Date/Time Associated Diagnosis Comments DIFFERENTIAL AUTO Routine 02/09/2021 11: 29 AM CDT Fatigue, unspecified type IRON PROFILE W/ IBC Routine 02/09/2021 1 1:29 AM CDT Fatigue, unspecified type CBC WITH AUTO DIFFERENTIAL Routine 02/09/2021 11:29 AM CDT Fatigue, unspecified type TSH Routine 02/09/2021 11:29 AM CDT Fatigue, unspecified type T4, FREE Routine 02/09/2021 11:29 AM CDT Fatigue, unspecified type VITAMIN B12 Routine 02/09/2021 11:29 AM CDT Fatigue, unspecified type documented in this encounter Results * Differential, auto (02/09/2021 11:29 AM CDT) Neutrophil abs 6.1 1.7 - 6.5 K/cumm [facility] Imm gran abs 0.0 0.0 - 0.1 K/cumm [facility] CH Lymphocyte abs 2.5 0.8 - 3.3 K/cumm [facility] Monocyte abs 0.8 0.2 - 0.8 K/cumm [facility] CH Eosinophil abs 0.4 0.0 - 0.5 K/cumm [facility] CH Basophil abs 0.1 0.0 - 0.1 K/cumm [facility] Neutrophil pct 62.2 % [facility] Comment: Interpretive Data Percent cell count reference ranges are not reported, since discordance with absolute values may lead to misinterpretation of CBC data. Current Interpretive Data was last revised on 2017. Imm gran pct 0.3 % [facility] Comment: Interpretive Data Percent cell count reference ranges are not reported, since discordance with absolute values may lead to misinterpretation of CBC data. Current Interpretive Data was last revised on 2017. Lymphocyte pct 24.9 % [facility] Comment: Interpretive Data Percent cell count reference ranges are not reported, since discordance with absolute values may lead to misinterpretation of CBC data. Current Interpretive Data was last revised on 2017. Monocyte pct 8.1 % [facility] Comment: Interpretive Data Percent cell count reference ranges are not reported, since discordance with absolute values may lead to misinterpretation of CBC data. Current Interpretive Data was last revised on 2017. Eosinophil pct 3.6 % [facility] Comment: Interpretive Data Percent cell count reference ranges are not reported, since discordance with absolute values may lead to misinterpretation of CBC data. Current Interpretive Data was last revised on 2017. Basophil pct 0.9 % [facility] Comment: Interpretive Data Percent cell count reference ranges are not reported, since discordance with absolute values may lead to misinterpretation of CBC data. Current Interpretive Data was last revised on 2017. Blood specimen (specimen) 02/09/2021 11:29 AM CDT 02/09/2021 3:45 PM CDT Lalito England MD LAB BLOOD ORDERABLES Jessica reynolds Result [facility] [address] Department of Laboratories [place], [place] [id number] * (ABNORMAL) CBC with auto differential (02/09/2021 11:29 AM CDT) WBC 9.9 3.8 - 9.9 K/cumm [facility] Hgb 9.4(L) 11.9 - 15.5 g/dL [facility] Hct 31.7(L) 35.6 - 45.5 % [facility] Plt 274 150 - 400 K/cumm [facility] MPV 10.3 9.1 - 12.3 fL [facility] RBC 3.76(L) 3.90 - 5.20 M/cumm [facility] MCV 84.3 81.3 - 96.4 fL [facility] CH MCH 25.0(L) 27.1 - 33.3 pg [facility] CH MCHC 29.7(L) 32.3 - 35.7 g/dL [facility] CH RDW CV 16.1(H) 11.1 - 14.9 % [facility] CH RDW SD 49.2(H) 35.7 - 48.1 fL [facility] CH NRBC abs 0.00 0.00 - 0.01 K/cumm [facility] Blood specimen (specimen) 02/09/2021 11:29 AM CDT 02/09/2021 3:45 PM CDT Lalito England MD LAB BLOOD ORDERABLES Jessica l Result Performing Organization Address [facility] Co de Phone Number ANN MENDES [address] [facility] [place] [address] * T4, free (02/09/2021 11:29 AM CDT) Free T4 1.42 0.90 - 1.70 ng/dL [facility] Blood specimen (specimen) 02/09/2021 11:29 AM CDT 02/09/2021 3:45 PM CDT Lalito England MD LAB BLOOD ORDERABLES Jessica l Result Performing Organization Address [facility] Co de Phone Number ANN CINTHYA [address] [place] [address] * TSH (02/09/2021 11:29 AM CDT) Thyroid Stimulating Hormone 3.62 0.30 - 4.20 mcIUnit/mL [facility] Blood specimen (specimen) 02/09/2021 11:29 AM CDT 02/09/2021 3:45 PM CDT Lalito England MD LAB BLOOD ORDERABLES Jessica l Result Performing Organization Address [facility] Co de Phone Number BETTINACHANO MENDES [address] [address] [facility] [place] [address] * (ABNORMAL) Iron profile w/ IBC (02/09/2021 11:29 AM CDT) Iron 36 35 - 145 mcg/dl [facility] TIBC 404(H) 250 - 400 mcg/dL [facility] Transferrin saturation 9(L) 20 - 50 % [facility] Blood specimen (specimen) 02/09/2021 11:29 AM CDT 02/09/2021 3:45 PM CDT Lalito England MD LAB BLOOD ORDERABLES Jessica l Result [facility] [address] [place] [address] * (ABNORMAL) Vitamin B12 (02/09/2021 11:29 AM CDT) Pathologist [facility] Vitamin B12 205(L) 230 - 1,250 pg/mL [facility] Blood specimen (specimen) 02/09/2021 11:29 AM CDT 02/09/2021 3:45 PM CDT Lalito England MD LAB BLOOD ORDERABLES Jessica l Result [facility] [address] [place] [address] documented in this encounter Visit Diagnoses Diagnosis Fatigue, unspecified type documented in this encounter Care Teams Time Study Analyst Relationship Specialty Start Date End Date [place] [address] PCP - General 08/03/19 documented as of this encounter
--- OUTSIDE RECORDS SUMMARY | 2024-07-11 22:40 | XMS_ITS | Encounter Summary ---
Author Organization [facility] Address [address] [place] [address] Care Team Providers Care Commercial Sales Specialist Name Role Phone Lalito England MD Primary Care Provider [phone] Reason for Visit * Reason Onset Date Comments overdue results 01/12/2021 DEXA Encounter Details Date Type Department Care Team (Late st Contact Info) Description 01/12/2021 Telephone [facility] [address] [place] [address] Lalito England MD [address] [place] [address] overdue results (DEXA) Social History [...] file 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 documented in this encounter Plan of Treatment Not on file documented as of this encounter Visit Diagnoses Not on filedocumented in this encounter Care Teams Commercial Sales Specialist Relationship Specialty Start Date End Date [place] [address] PCP - General 08/03/19 documented as of this encounter
--- OUTSIDE RECORDS SUMMARY | 2024-07-11 22:40 | XMS_ITS | Encounter Summary ---
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 Gender Identity Not on file Sexual Orientation Not on file documented as of this encounter Ordered Prescriptions Prescription Sig Dispense Quantity Refills Last Filled Start Date End Date metFORMIN (GLUCOPHAGE) 500 mg tablet Take 1 tablet (500 mg total) by mouth daily with breakfast 30 tablet 3 08/03/2020 documented in this encounter Plan of Treatment Not on file documented as of this encounter Visit Diagnoses Not on filedocumented in this encounter Care Teams Administrative Assistant Coordinator Relationship Specialty Start Date End Date Lalito England MD [address] [place] [address] PCP - General 08/03/19 documented as of this encounter
--- OUTSIDE RECORDS SUMMARY | 2024-07-11 22:40 | XMS_ITS | Encounter Summary ---
Author Organization [facility] Address [address] [facility] [address] [place] [address] Care Team Providers Care Naval Architect Specialist Name Role Phone Lalito England MD Primary Care Provider [phone] Reason for Visit * Reason Comments Back Pain Pt is c/o right lowe r back pain. Pt states that this has been going on for almost 2 months. Stomach ache Pt states that she h as an upset stomach every now and then. Encounter Details Date Type Department Care Team (Late st Contact Info) Description 02/11/2020 2:15 PM CDT Office Visit [facility] [address] [place] [address] Lalito England MD [address] [place] [address] Flank pain (Primary Dx); Acute left-sided low back pain without sciatica; BMI 38.0-38.9,adult; Severe obesity (BMI 35.0-39.9) with comorbidity (CMS/HCC) Social History Tobacco Use Types Packs/Day Years Used Date Smoking Tobacco: Never Smokeless Tobacco: Never Alcohol Use Standard Drinks/Week Comments Yes 0 (1 standard drink = 0.6 oz pur e alcohol) occasional PHQ-2 Answer Date Recorded PHQ-2 Score 0 08/02/2019 Comments No Sex and Gender Information Value Date Recorded Sex Assigned at Not on file 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 Gender Identity Not on file Sexual Orientation Not on file documented as of this encounter Last Filed Vital Signs Vital Sign Reading Time Taken Comments Blood Pressure 128/54 02/11/2020 2:09 PM CDT Pulse 79 02/11/2020 2:09 PM CDT Temperature 36.6 ??C (97.8 ??F) 02/11/2020 2:09 PM CD T Respiratory Rate 18 02/11/2020 2:09 PM CDT Oxygen Saturation 97% 02/11/2020 2:09 PM CDT Inhaled Oxygen Concentration - - Weight 107 kg (235 lb 12.8 oz) 02/11/2020 2:09 P M CDT Height 167.6 cm (5' 5.98 ) 02/11/2020 2:09 PM CD T Body Mass Index 38.08 02/11/2020 2:09 PM CDT documented in this encounter Ordered Prescriptions Prescription Sig Dispense Quantity Refills Last Filled Start Date End Date tiZANidine (ZANAFLEX) 2 mg tablet Take 1 tablet (2 mg total) by mouth every 6 (six) hours as needed for muscle spasms 30 tablet 1 02/11/2020 1 methylPREDNISolone (MEDROL DOSEPACK) 4 mg Dosepack Take as directed on package. 21 tablet 02/11/2020 0 documented in this encounter Progress Notes * Lalito England MD - 02/11/2020 2:15 PM CDT Images from the original note were not included. [facility] [place] Chief Complaint. Chief Complaint Patient presents with ??? Back Pain Pt is c/o right lower back pain. Pt states that this has been going on for almost 2 months. ??? Stomach ache Pt states that she has an upset stomach every now and then. HPI. Patient is a 69 y.o. female Back Pain This is a new problem. The current episode started 1 to 4 weeks ago. The problem occurs constantly.The problem has been gradually worsening since onset. The pain is present in the lumbar spine and gluteal. The quality of the pain is described as aching and stabbing. Radiates to: lower back pain. The pain is at a severity of 7/10. The pain is moderate. The symptoms are aggravated by bending, standing, twisting and stress. Stiffness is present all day. Pertinent negatives include no abdominal pain, bladder incontinence, bowel incontinence, chest pain, dysuria, fever, headaches, leg pain, pelvic pain or weakness. She has tried ice, heat, analgesics and muscle relaxant for the symptoms. The treatment provided moderate relief. Past Medical History: Diagnosis Date ??? Benign hypertension with CKD (chronic kidney disease) stage III (CMS/HCC) ??? Gastroesophageal reflux disease GERD ??? HX OTHER MEDICAL PMO ??? 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 HX OTHER MEDICAL [facility] OA ??? HX OTHER MEDICAL 2008 Discectomy, cervical ??? HX OTHER MEDICAL Fall ??? HX OTHER MEDICAL Left proximal femoral Gamma Nail fixation proximal; Comments: J 07/25/2015 - ??? HX OTHER MEDICAL RTKR 2001.; Comments: J 07/25/2015 - ??? HX OTHER MEDICAL LTKR 2005.; Comments: J 07/25/2015 - ??? HX OTHER MEDICAL Back surgery 2006.; Comments: J 07/25/2015 - ??? HX OTHER MEDICAL Cervical disc surg. 2007.; Comments: [facility] 07/25/2015 - ??? HX OTHER MEDICAL Breast reduction 2008.; Comments: [facility] 07/25/2015 - ??? HX OTHER [...] tablet aspirin 81 mg enteric coated tablet [id number]-[id number] (EXCEDRIN MIGRAINE) 250-250-65 mg per tablet blood [...] mg tablet traMADol (ULTRAM) 50 mg tablet methylPREDNISolone (MEDROL DOSEPACK) 4 mg Dosepack tiZANidine (ZANAFLEX) 2 mg tablet Allergies Allergen [...] Negative for bladder incontinence, dysuria, hematuria and pelvic pain. Musculoskeletal: Positive for back pain. Negative for myalgias and neck pain. Neurological: Negative for dizziness, tremors, weakness, light-headedness and headaches. Hematological: Negative for adenopathy. Psychiatric/Behavioral: Negative for sleep disturbance and suicidal ideas. BP 128/54 (BP Location: Left arm, Patient Position: Sitting) Pulse 79 Temp 36.6 ??C (97.8 ??F) (Temporal) Resp 18 Ht 167.6 cm (5' 5.98 ) Wt 107 kg (235 lb 12.8 oz) SpO2 97% BMI 38.08 kg/m?? Physical Exam: Physical Exam Vitals signs [...] CVA tenderness or left CVA tenderness. Musculoskeletal: Lumbar back: She exhibits tenderness and spasm. She exhibits normal range of motion and no bony tenderness. Right lower leg: No edema. Left lower leg: No edema. Lymphadenopathy: Cervical: No cervical adenopathy. Skin: Findings: No erythema. Neurological: Mental Status: She is alert and oriented to person, place, and time. Psychiatric: Thought Content: Thought content normal. Assessment & Plan: Diagnoses and all orders for this visit: Flank pain (Primary) - Urinalysis reflex to microscopic and culture Urine; Future R/O kidney stones/infection and monitor response. Acute left-sided low back pain without sciatica Most likely musculoskeletal. Rx medrol dospeak and muscle relaxant. WIll continue to follow. Supportive care. BMI 38.0-38.9,adult Reviewed impact of increased BMI and encoruage 150min/week aerobic exercise. Severe obesity (BMI 35.0-39.9) with comorbidity (CMS/HCC) Other orders - methylPREDNISolone (MEDROL DOSEPACK) 4 mg Dosepack; Take as directed on package. - tiZANidine (ZANAFLEX) 2 mg tablet; Take 1 tablet (2 mg total) by mouth every 6 (six) hours as needed for muscle spasms BMI Follow-up includes: nutrition counseling. Body mass index is 38.08 kg/m??. Lalito England MD documented in this encounter Plan of Treatment Not on file documented as of this encounter Results * (ABNORMAL) Urinalysis reflex [...] tendency for uric acid stone formation. Source: [employer]. Last revised 07-24-2017 us Lalito England MD LAB MICROBIOLOGY - GENERA L ORDERABLES Final Result [id number] Department [place] [address] documented in this encounter Visit Diagnoses Diagnosis Flank pain- Primary Abdominal pain, unspecified site Acute left-sided low back pain without sciatica BMI 38.0-38.9,adult Severe obesity (BMI 35.0-39.9) with comorbidity (HCC) Flank pain Abdominal pain, unspecified site documented in this encounter Care Teams Naval Architect Specialist Relationship Specialty Start Date End Date Lalito England MD [address] [place] [address] PCP - General 08/03/19 documented as of this encounter
--- OUTSIDE RECORDS SUMMARY | 2024-07-11 22:40 | XMS_ITS | Encounter Summary ---
Author Organization [facility] Address [address] [facility] [address] [place] [address] Care Team Providers Care Field Advisor Name Role Phone Lalito England MD Primary Care Provider [phone] [phone] Reason for Visit * Reason Onset Date Comments Lab Results 02/18/2020 Encounter Details Date Type Department Care Team (Late st Contact Info) Description 02/18/2020 Telephone [facility] [address] [place] [address] Devi George MA Lab Results Social History Tobacco Use Types Packs/Day Years Used Date Smoking Tobacco: Never Smokeless Tobacco: Never Alcohol Use Standard Drinks/Week Comments Yes 0 (1 standard drink = 0.6 oz pur e alcohol) occasional PHQ-2 Answer Date Recorded PHQ-2 Score 0 08/02/2019 Comments No Sex and Gender Information Value Date Recorded Sex Assigned at Not on file 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 Thank you * Telephone Encounter - Lalito England MD - 02/18/2020 1:32 PM CDT Spoke with patient. Reviewed GFR stage 3 . WIll montior response with glycemic control and will continue to follow. * Telephone Encounter - Devi George MA - 02/18/2020 12:09 PM CDT Pt called requesting lab results from 02/10. Also, pt stated that she saw Dr. Marie and stated that pt needs to see a kidney specialist and would like to know your opinion.Please review. I have alsore-faxed paperwork to [facility] for pt upcoming surgery. documented in this encounter Plan of Treatment Not on file documented as of this encounter Visit Diagnoses Not on filedocumented in this encounter Care Teams Field Advisor Relationship Specialty Start Date End Date Lalito England MD [address] [place] [address] PCP - General 08/03/19 documented as of this encounter
--- OUTSIDE RECORDS SUMMARY | 2024-07-11 22:40 | XMS_ITS | Encounter Summary ---
Author Organization [facility] Medical Group Address [address] [place] [address] Care Team Providers Care Airline Pilot Name Role Phone Lalito England MD Primary Care Provider [phone] Reason for Visit * Reason Comments Follow-up 3 month f/u [facility] Encounter Parking Placard Pt states that she n eeds her parking placard renewed. Encounter Details Date Type Department Care Team (Late st Contact Info) Description 01/10/2020 2:00 PM CDT Office Visit [facility] [address] [place] [address] Lalito England MD [address] [facility] [place] [address] Annual physical exam (Primary Dx); Hypertension associated with diabetes (CMS/HCC); Type 2 diabetes mellitus with hyperlipidemia (CMS/HCC); Sacroiliac joint disease; Type 2 diabetes mellitus with stage 3 chronic kidney disease, with long-term current use of insulin (CMS/HCC); CKD (chronic kidney disease) stage 3, GFR 30-59 ml/min (CMS/HCC); Severe obesity (BMI 35.0-39.9) with comorbidity (CMS/HCC); BMI 38.0-38.9,adult; Type 2 diabetes mellitus with polyneuropathy (CMS/HCC); Sarcoidosis of lung (CMS/HCC) Social History Tobacco Use Types Packs/Day Years Used Date Smoking Tobacco: Never Smokeless Tobacco: Never Alcohol Use Standard Drinks/Week Comments Yes 0 (1 standard drink = 0.6 oz pur e alcohol) occasional PHQ-2 Answer Date Recorded PHQ-2 Score 0 08/02/2019 Comments No Sex and Gender Information Value Date Recorded Sex Assigned at Not on file 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 Gender Identity Not on file Sexual Orientation Not on file documented as of this encounter Last Filed Vital Signs Vital Sign Reading Time Taken Comments Blood Pressure 130/64 01/10/2020 2:06 PM CDT Pulse 80 01/10/2020 2:06 PM CDT Temperature 36.6 ??C (97.8 ??F) 01/10/2020 2:06 PM CD T Respiratory Rate 18 01/10/2020 2:06 PM CDT Oxygen Saturation 96% 01/10/2020 2:06 PM CDT Inhaled Oxygen Concentration - - Weight 107.4 kg (236 lb 12.8 oz) 01/10/2020 2:06 PM CDT Height 167.6 cm (5' 5.98 ) 01/10/2020 2:06 PM CD T Body Mass Index 38.24 01/10/2020 2:06 PM CDT documented in this encounter Progress Notes * Lalito England MD - 01/10/2020 2:00 PM CDT MEDICARE SUBSEQUENT ANNUAL WELLNESS VISIT [place] Medicare Health Risk Assessment Pelase see [facility] Encounter for full details. No acute changes at the presnet time. Congrautulate on stable blood sugar control and will continue to follow/monitor response. Problem List, Past Medical and Surgical History: Patient Active Problem List Diagnosis ??? Hyperlipidemia [...] OTHER MEDICAL PMO ??? 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 HX OTHER MEDICAL [facility]MC OA ??? [...] of previous hip arthroplasty left hip; Comments: [facility] TCU unit 02/06 - 02/17/16 for [...] MAMMAPLASTY Bilateral 2008 ??? TONSILLECTOMY tonsillectomy Family History: Family History Problem Relation Age of Onset ??? Heart disease Father Heart disease; ??? Heart failure Father CHF; Cause of : CHF ??? Colon cancer Father ??? Diabetes Mother Diabetes mellitus; ??? Hypertension Mother Hypertension; ??? Diabetes Brother Diabetes mellitus; ??? Cancer Brother ??? Lymphoma Brother Cancer -lymphoma; ??? Stroke Brother ??? Hypertension Brother Social History: Social History Socioeconomic History ??? Marital status: Spouse name: Not on file ??? Number of children: Not on file ??? Years of education: Not on file ??? Highest education level: Not on file Occupational History ??? Not on file Social Needs ??? Financial resource strain: Not on file ??? Food insecurity Worry: Not on file Inability: Not on file ??? Transportation needs Medical: Not on file Non-medical: Not on file Tobacco Use ??? Smoking status: Never Smoker ??? Smokeless tobacco: Never Used Substance and Sexual Activity ??? Alcohol use: Yes Comment: occasional ??? Drug use: Never ??? Sexual activity: Defer Lifestyle ??? Physical activity Days per week: Not on file Minutes per session: Not on file ??? Stress: Not on file Relationships ??? Social connections Talks on phone: Not on file Gets together: Not on file Attends rastafari service: Not on file Active member of club or organization: Not on file Attends meetings of clubs or organizations: Not on file Relationship status: Not on file ??? Intimate partner violence Fear of current or ex partner: Not on file Emotionally abused: Not on file Physically abused: Not on file Forced sexual activity: Not on file Other Topics Concern ??? Not on file Social History Narrative ??? Not on file Allergies: Allergies Allergen Reactions ??? Hydrocodone Other (See comments) Reaction: migraines, , , can take tylenol Medications: Current Outpatient Medications: ??? albuterol HFA (PROVENTIL HFA,VENTOLIN HFA) 90 mcg/actuation inhaler, Inhale 2 puffs every 6 (six) hours as needed for wheezing., Disp: , Rfl: ??? alendronate (FOSAMAX) 70 mg tablet, Take 1 tablet (70 mg total) by mouth every 7 days, Disp: 13tablet, Rfl: 1 ??? amLODIPine (NORVASC) 5 mg tablet, Take 1 tablet (5 mg total) by mouth daily, Disp: 90 tablet, Rfl: 1 ??? aspirin 81 mg enteric coated tablet, Take 81 mg by mouth daily, Disp: , Rfl: ??? xsjexfm-zryhdysktypyr-wumpmfdb (EXCEDRIN MIGRAINE) 250-250-65 mg per tablet, Take 1 tablet by mouth every 6 (six) hours as needed., Disp: , Rfl: ??? blood glucose diagnostic (CONTOUR NEXT STRIPS) strip, USE ONE STRIP IN METER THREE TIMES A DAY,Disp: 300 strip, Rfl: 11 ??? blood-glucose meter (CONTOUR NEXT USB METER) [facility], test as directed, Disp: 1 each, Rfl: 0 ??? calcium carbonate-vitamin D3 500 mg(1,250mg) -400 unit tablet, Take one by mouth two times per day, Disp: 0, Rfl: 0 ??? cloNIDine (CATAPRES) 0.1 mg tablet, Take 0.5 tablets (0.05 mg total) by mouth 2 (two) times a day 1/2 tablet by mouth 2xday, Disp: 90 tablet, Rfl: 1 ??? fluticasone propionate (Flonase) 50 mcg/actuation nasal spray, Administer 2 sprays into each nostril daily, Disp: 3 Inhaler, Rfl: 1 ??? furosemide (LASIX) 20 mg tablet, Take 1 tablet (20 mg total) by mouth daily, Disp: 90 tablet, Rfl: 1 ??? gabapentin (NEURONTIN) 300 mg capsule, take 2 Capsule by oral route every day, Disp: 0, Rfl: 0 ??? insulin aspart U-100 (NovoLOG) 100 unit/mL injection, Inject 32 Units under the skin 3 (three) times a day before meals, Disp: 84 mL, Rfl: 1 ??? insulin glargine (LANTUS,BASAGLAR) 100 unit/mL (3 mL) insulin pen, Inject 48 Units under the skin daily, Disp: 5 pen, Rfl: 3 ??? irbesartan-hydroCHLOROthiazide (AVALIDE) 300-12.5 mg per tablet, Take 1 tablet by mouth daily, Disp: 90 tablet, Rfl: 1 ??? lancets (MICROLET LANCET) [facility] [place], test by fingerstick route 3 times daily, Disp: 300 each, Rfl: 3 ??? metFORMIN (GLUCOPHAGE) 500 mg tablet, Take 2 tablets (1,000 mg total) by mouth 2 (two) times a day with meals, Disp: 360 tablet, Rfl: 1 ??? montelukast (SINGULAIR) 10 mg tablet, take 1 tablet (10MG) by ORAL route every day in the evening, Disp: , Rfl: 0 ??? pantoprazole DR (PROTONIX) 40 mg EC tablet, Take 1 tablet (40 mg total) by mouth 2 (two) times a day, Disp: 180 tablet, Rfl: 1 ??? pen needle, diabetic (BD INSULIN PEN NEEDLE UF MINI) 31 gauge x 3/16 needle, 1 needle as directed, Disp: 300 each, Rfl: 3 ??? simvastatin (ZOCOR) 40 mg tablet, Take 1 tablet (40 mg total) by mouth nightly, Disp: 90 tablet, Rfl: 1 ??? traMADol (ULTRAM) 50 mg tablet, take 1 tablet by ORAL route every 6 hours as needed, Disp: 60, Rfl: 2 Depression Screen: PHQ Screening Over the last 2 weeks, how often have you been bothered by any of the following problems? Little Interest or Pleasure in Doing Things: Not at all Feeling Down, Depressed, or Hopeless: Not at all PHQ-2 Total Score (If total score is 3 or more points, staff should administer the PHQ-9): 0 Over the past 2 weeks, how often have you been bothered by any of the following problems? Little Interest or Pleasure in Doing Things: Not at all Feeling Down, Depressed, or Hopeless: Not at all Vitals: Vitals BP 130/64 (BP Location: Left arm, Patient Position: Sitting) Pulse 80 Temp 36.6 ??C (97.8 ??F) (Oral) Resp 18 Ht 167.6 cm (5' 5.98 ) Wt 107.4 kg (236 lb 12.8 oz) SpO2 96% BMI 38.24 kg/m?? Body mass index is 38.24 kg/m??. Exam: Physical Exam Vitals signs reviewed. Constitutional: General: She is not in acute distress. HENT: Mouth/Throat: Pharynx: No oropharyngeal exudate. Eyes: General: No scleral icterus. Neck: Musculoskeletal: Neck supple. Vascular: No JVD. Cardiovascular: Rate and Rhythm: Normal rate and regular rhythm. Heart sounds: No murmur. Pulmonary: Effort: Pulmonary effort is normal. No respiratory distress. Breath sounds: Normal breath sounds. No wheezing, rhonchi or rales. Chest: Chest wall: No tenderness. Abdominal: General: Bowel sounds are normal. Palpations: Abdomen is soft. Feet: Right Foot: Monofilament exam: abnormal. Left Foot: Monofilament exam: abnormal. Lymphadenopathy: Cervical: No cervical adenopathy. Skin: Findings: No erythema. Neurological: Mental Status: She is alert and oriented to person, place, and time. Psychiatric: Thought Content: Thought content normal. Care Team Providers: Patient Care Team: Lalito England MD as PCP - General Primary Pharmacy/DME suppliers: [id number] [place], [place] - [address] [place] [address] [facility] [place], [place] [address] Detection of Cognitive Impairment: The patient does not have cognitive impairment based on direct observation, discussion with patientor family, or review of medical records. Health Maintenance: Health Maintenance Topics with due status: Overdue Topic Date Due DTaP/Tdap/Td Vaccine 1960 Zoster Vaccines 1999 Dilated Eye Exam 10/16/2015 Osteoporosis Screening-Bone Density Scan 05/15/2017 Foot Exam 03/31/2018 Regular Well Visit/Exam 06/11/2018 Breast Cancer Screening-Mammogram 11/04/2018 Health Maintenance Topics with due status: Not Due Topic Last Completion Date Colon Cancer Screening-Colonoscopy 09/28/2018 Lipid Panel 01/05/2020 Hemoglobin A1C 01/05/2020 Urine Microalbumin 01/05/2020 Fall Risk Assessment 01/10/2020 Depression Screening-PHQ 01/10/2020 Health Maintenance Topics with due status: Completed Topic Last Completion Date Hepatitis C Screening 12/13/2016 Pneumococcal (PCV13 & PPSV23) 65+ yrs 12/27/2016 Influenza Vaccine 08/02/2019 Counseling and Referral of Preventative Services: Lifestyle Recommendations Increase Physical Activity, Reduce Weight and Improve Diet Advanced Directive Durable Power of Patient Support Partner: Yes Living Will: Yes Assessment and Plan: Diagnoses and all orders for this visit: Annual physical exam (Primary) See Ess[facility] enhanced encounter. Hypertension associated with diabetes (CMS/HCC) Type 2 diabetes mellitus with hyperlipidemia (CMS/HCC) Sacroiliac joint disease Type 2 diabetes mellitus with stage 3 chronic kidney disease, with long-term current use of insulin([facility]/HCC) CKD (chronic kidney disease) stage 3, GFR 30-59 ml/min ([facility]) Severe obesity (BMI 35.0-39.9) with comorbidity ([facility]/HCC) BMI 38.0-38.9,adult Type 2 diabetes mellitus with polyneuropathy ([facility]) Sarcoidosis of lung ([facility]) Patient here for annual Medicare wellness visit [...] update and summary of today's office visit. documented in this encounter Plan of Treatment Not on file documented as of this encounter Visit Diagnoses Diagnosis Annual physical exam- Primary Routine general medical examination at a health care facility Hypertension associated with diabetes (HCC) Unspecified essential hypertension Type 2 diabetes mellitus with hyperlipidemia (HCC) Sacroiliac joint disease Type 2 diabetes mellitus with stage 3 chronic kidney disease, with long-term current use of insulin (HCC) CKD (chronic kidney disease) stage 3, GFR 30-59 ml/min (HCC) Chronic kidney disease, Stage III (moderate) Severe obesity (BMI 35.0-39.9) with comorbidity ([facility]) BMI 38.0-38.9,adult Type 2 diabetes mellitus with polyneuropathy (HCC) Type II or unspecified type diabetes mellitus with neurological manifestations, not stated as uncontrolled Sarcoidosis of lung (HCC) Sarcoidosis documented in this encounter Care Teams Airline Pilot Relationship Specialty Start Date End Date Lalito England MD [address] [place] [address] PCP - General 08/03/19 documented as of this encounter
--- OUTSIDE RECORDS SUMMARY | 2024-07-11 22:40 | XMS_ITS | Encounter Summary ---
Author Organization [facility] Address [address] [place] [address] Care Team Providers Care Landscape Foreman Name Role Phone Lalito England MD Primary Care Provider [phone] Reason for Referral * Diagnostic Imaging (Routine) - Closed Specialty Diagnoses / Procedures Referred By Contac t Referred To Contact Diagnoses Age-related osteoporosis without current pathological fracture Procedures Dexa Axial Skeleton Bone Density 1 Or 2 Site Bere Su, MARKOS [address] [place] [address] Phone: tel: fax: [facility] Referral ID Status Reason Start Date Expiration Date Visits Re quested Visits Authorized [id number] Closed 04/11/2020 05/11/2021 1 1 Reason for Visit * Reason Comments Follow-up Pt is here for a 3 m o check up. Encounter Details Date Type Department Care Team (Late st Contact Info) Description 04/11/2020 2:00 PM CDT Office Visit [facility] [address] [place] [address] Bere Su, FABRIC SOURCER [address] [place] [address] Controlled type 2 diabetes mellitus with diabetic polyneuropathy, without long-term current use of insulin ([facility]) (Primary Dx); CKD stage 3 due to type 2 diabetes mellitus ([facility]/HCC); Hypertension associated with diabetes ([facility]/HCC); Hyperlipidemia associated with type 2 diabetes mellitus ([facility]); Age-related osteoporosis without current pathological fracture; Class 2 severe obesity due to excess calories with serious comorbidity and body mass index (BMI) of 37.0 to 37.9 in adult ([facility]) Social History Tobacco Use Types Packs/Day Years Used Date Smoking Tobacco: Never Smokeless Tobacco: Never Alcohol Use Standard Drinks/Week Comments Yes 0 (1 standard drink = 0.6 oz pur e alcohol) occasional PHQ-2 Answer Date Recorded PHQ-2 Score 0 08/02/2019 Comments No Sex and Gender Information Value Date Recorded Sex Assigned at Not on file Legal Sex Female 11:52 PM LICENSED 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 ASSISTANT Gender Identity Not on file Sexual Orientation Not on file documented as of this encounter Last Filed Vital Signs Vital Sign Reading Time Taken Comments Blood Pressure 134/76 04/11/2020 2:04 PM CDT Pulse 88 04/11/2020 2:04 PM CDT Temperature 36.3 ??C (97.4 ??F) 04/11/2020 2:04 PM CD T Respiratory Rate - - Oxygen Saturation 97% 04/11/2020 2:04 PM CDT Inhaled Oxygen Concentration - - Weight 106.7 kg (235 lb 3.2 oz) 04/11/2020 2:04 PM CDT Height 167.6 cm (5' 6 ) 04/11/2020 2:04 PM CDT Body Mass Index 37.96 04/11/2020 2:04 PM CDT documented in this encounter Patient Instructions * Patient Instructions* Bere Su NP - 04/11/2020 2:00 PM CDT [facility] call [facility] to reschedule your mammogram: [phone]. documented in this encounter Progress Notes * Bere Su NP - 04/11/2020 2:00 PM CDT Images from the original note were not included. [facility] Criss Ly Chief Complaint. Chief Complaint Patient presents with ??? Follow-up Pt is here for a 3 mo check up. HPI. Patient is a 69 y.o. female Presents for follow-up regarding diabetes, HTN, and CKD. No acute concerns. Continues to follow with Dr. Uribe for sarcoidosis. On bisphosphonate therapy, due for repeat DEXA scan. Diabetes She presents for her follow-up diabetic visit. She has type 2 diabetes mellitus. Her disease coursehas been stable. There are no hypoglycemic associated symptoms. There are no diabetic associated symptoms. Pertinent negatives for diabetes include no chest pain and no foot paresthesias. There are no hypoglycemic complications. Symptoms are stable. Diabetic complications include nephropathy. Risk factors for coronary artery disease include diabetes mellitus, dyslipidemia, hypertension, obesity, post-menopausal and sedentary lifestyle. Current diabetic treatment includes insulin injections. Sheis compliant with treatment all of the time. Her weight is stable. She is following a generally healthy diet. She has not had a previous visit with a dietitian. She participates in exercise intermittently. There is no change in her home blood glucose trend. An REYNALDO inhibitor/angiotensin II receptor moses is being taken. She does not see a vocational psychologist.Eye exam is current. Hypertension This is a chronic problem. The current episode started more than 1 year ago. The problem is unchanged. The problem is controlled. Associated symptoms include peripheral edema. Pertinent negatives include no chest pain, palpitations or shortness of breath. There are no associated agents to hypertension. Risk factors for coronary artery disease include diabetes mellitus, dyslipidemia, obesity, post-menopausal state and sedentary lifestyle. Past treatments include angiotensin blockers, calcium channel blockers, beta blockers, diuretics and direct vasodilators. The current treatment provides moderate improvement. Compliance problems include exercise. Hypertensive end-organ damage includes kidney disease. There is no history of angina. Identifiable causes of hypertension include chronic renal disease. Hyperlipidemia This is a chronic problem. The current episode started more than 1 year ago. The problem is controlled. Recent lipid tests were reviewed and are normal. Exacerbating diseases include chronic renal disease, diabetes and obesity. There are no known factors aggravating her hyperlipidemia. Pertinent negatives include no chest pain or shortness of breath. Current antihyperlipidemic treatment includes statins. The current treatment provides moderate improvement of lipids. Compliance problems include adherence to exercise. Risk factors for coronary artery disease include diabetes mellitus, dyslipidemia, hypertension, obesity, post-menopausal and a sedentary lifestyle. Past Medical History: Diagnosis Date ??? Benign hypertension with CKD (chronic kidney disease) stage III (CMS/HCC) ??? Gastroesophageal reflux disease GERD ??? HX OTHER MEDICAL PMO ??? 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 HX OTHER MEDICAL [facility]MC OA ??? [...] tablet aspirin 81 mg enteric coated tablet eftqsjz-wltwbrunznpsq-nazzuevt (EXCEDRIN MIGRAINE) 250-250-65 mg per tablet blood [...] Brother Review of Systems: Review of Systems HENT: Negative for hearing loss. Eyes: Negative for visual disturbance. Respiratory: Negative for shortness of breath. Cardiovascular: Positive for leg swelling. Negative for chest pain and palpitations. Gastrointestinal: Negative for abdominal pain. Skin: Negative for wound. BP 134/76 (BP Location: Left arm, Patient Position: Sitting) Pulse 88 Temp 36.3 ??C (97.4 ??F) (Temporal) Ht 167.6 cm (5' 6 ) Wt 106.7 kg (235 lb 3.2 oz) SpO2 97% BMI 37.96 kg/m?? Physical Exam: Physical Exam Vitals signs and nursing note reviewed. Constitutional: General: She is not in acute distress. Appearance: She is well-developed. She is obese. HENT: Head: Normocephalic and atraumatic. Right Ear: Tympanic membrane, ear canal and external ear normal. Left Ear: Tympanic membrane, ear canal and external ear normal. Eyes: Extraocular Movements: Extraocular movements intact. Conjunctiva/sclera: Conjunctivae normal. Pupils: Pupils are equal, round, and reactive to light. Neck: Musculoskeletal: Normal range of motion and neck supple. Cardiovascular: Rate and Rhythm: Normal rate and regular rhythm. Pulses: Dorsalis pedis pulses are 2+ on the right side and 2+ on the left side. Heart sounds: Normal heart sounds. No murmur. Pulmonary: Effort: Pulmonary effort is normal. Breath sounds: Normal breath sounds. Abdominal: General: Bowel sounds are normal. There is no distension. Palpations: Abdomen is soft. Tenderness: There is no abdominal tenderness. Musculoskeletal: Normal range of motion. Right lower leg: No edema. Left lower leg: No edema. Lymphadenopathy: Cervical: No cervical adenopathy. Skin: General: Skin is warm and dry. Neurological: Mental Status: She is alert and oriented to person, place, and time. Psychiatric: Mood and Affect: Mood normal. Assessment & Plan: Diagnoses and all orders for this visit: Controlled type 2 diabetes mellitus with diabetic polyneuropathy, without long- term current use of insulin (CMS/HCC) (Primary) - CBC with auto differential; Future - Comprehensive metabolic panel; Future - Lipid panel; Future - Hemoglobin A1c; Future - Stable; last A1c = 7.6%. Encouraged patient to monitor blood sugars at home. Reviewed dietary intake and exercise for glycemic control to prevent end-organ damage. Recommend annual dilated eye exam. Check feet daily. Following A1c. CKD stage 3 due to type 2 diabetes mellitus (CMS/HCC) - Stable; no significant change in GFR from 2017 to present. Reviewed importance of hypertensive management and glycemic control to prevent further damage. Continue monitoring kidney function every 3months. Reviewed indications for nephrology referral. Hypertension associated with diabetes (CMS/HCC) - Stable; continue present management. Reviewed medication and adverse effects. Encouraged patient to monitor BP at home. Reviewed signs/symptoms of hypertension/hypotension. Reviewed red flag warnings. Follow-up in 3 months. Hyperlipidemia associated with type 2 diabetes mellitus ([facility]) - Stable; continue present management. Age-related osteoporosis without current pathological fracture - Dexa Axial Skeleton Bone Density 1 Or 2 Site; Future - Stable; continue Fosamax. Due for repeat DEXA. Class 2 severe obesity due to excess calories with serious comorbidity and body mass index (BMI) of37.0 to 37.9 in adult ([facility]) - Discussed healthy diet and importance of regular physical activity. BMI Follow-up includes: nutrition counseling. Body mass index is 37.96 kg/m??. We discussed dose, use, and potential [...] withthe plan of care. Bere Su NP documented in this encounter Plan of Treatment Scheduled Orders Name Type Priority Associated Diagnoses Orde r Schedule Dexa Axial Skeleton Bone Density 1 Or 2 Site Imaging Schedule Routine, Read Routine (OP Routine) Age-related osteoporosis without current pathological fracture Expected: 11/11/2020, Expires: 04/11/2021 documented as of this encounter Results * (ABNORMAL) Hemoglobin A1c (07/10/2020 2:46 PM LICENSED 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 THERAPY ASSISTANT) Hgb A1C 7.6(H) 4.0 - 5.6 % ANN MENDES Estimated Average Glucose 171 mg/dL ANN MENDES Comment: The ADA recommends reporting an estimated Average Glucose (eAG) with all Hemoglobin A1c results using the equation derived from a study of 507 normal and diabetic adults. ??Minority populations were underrepresented and children were not included. ?? (Diabetes Care 31:4173-1164, 2007). ??The eAG is not equivalent to a fasting glucose. Blood specimen (specimen) 07/10/2020 2:46 PM LICENSED 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 THERAPY ASSISTANT 07/10/2020 7:22 PM LICENSED 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 THERAPY ASSISTANT us Bere Su NP LAB BLOOD ORDERABLES Final Result ANN [id number] Department [place] [address] * Lipid panel (07/10/2020 2:46 PM LICENSED 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 THERAPY ASSISTANT) Cholesterol 136 30 - 199 mg/dL ANN MENDES Comment: [...] revised on 2018. Triglycerides 118 <=149 mg/dL ANN MENDES Comment: Interpretive Data [...] on 2018. HDL 50 >=40 mg/dL ANN Comment: Interpretive Data Ages [...] on 2018. Non-HDL Cholesterol 86 mg/dL ANN Comment: Interpretive Data Ages < [...] ratio 3 CERNER CH Blood specimen (specimen) 07/10/2020 2:46 PM LICENSED 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 THERAPY ASSISTANT 07/10/2020 7:22 PM LICENSED 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 THERAPY ASSISTANT Bere Su NP LAB BLOOD ORDERABLES Final Result CERNER [id number] Department [place] [address] * (ABNORMAL) Comprehensive metabolic panel (07/10/2020 2:46 PM LICENSED 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 THERAPY ASSISTANT) Sodium 140 135 - 145 mmol/L CERNER [...] CH Blood specimen (specimen) 07/10/2020 2:46 PM LICENSED 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 THERAPY ASSISTANT 07/10/2020 7:22 PM LICENSED 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 THERAPY ASSISTANT Bere Su NP LAB BLOOD ORDERABLES Final Result ANN MENDES [address] Department [place] [address] * (ABNORMAL) CBC with auto differential (07/10/2020 2:46 PM LICENSED 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 THERAPY ASSISTANT) WBC 9.6 3.8 - 9.9 K/cumm CERNER CH Hgb 9.4(L) 11.9 - 15.5 g/dL CERNER CH Hct 31.3(L) 35.6 - 45.5 % CERNER CH Plt 264 150 - 400 K/cumm CERNER CH MPV 10.0 9.1 - 12.3 fL CERNER CH RBC 3.74(L) 3.90 - 5.20 M/cumm CERNER CH MCV 83.7 81.3 - 96.4 fL CERNER CH MCH 25.1(L) 27.1 - 33.3 pg CERNER CH MCHC 30.0(L) 32.3 - 35.7 g/dL CERNER CH RDW CV 15.0(H) 11.1 - 14.9 % CERNER CH RDW SD 45.9 35.7 - 48.1 fL CERNER CH NRBC abs 0.00 0.00 - 0.01 K/cumm CERNER CH Blood specimen (specimen) 07/10/2020 2:46 PM LICENSED 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 THERAPY ASSISTANT 07/10/2020 7:22 PM LICENSED 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 THERAPY ASSISTANT Bere Su NP LAB BLOOD ORDERABLES Final Result ANN MENDES [id number] Department [place] [address] documented in this encounter Visit Diagnoses Diagnosis Controlled type 2 diabetes mellitus with diabetic polyneuropathy, without long- term current use of insulin (HCC)- Primary CKD stage 3 due to type 2 diabetes mellitus (HCC) Hypertension associated with diabetes (HCC) Unspecified essential hypertension Hyperlipidemia associated with type 2 diabetes mellitus (HCC) Age-related osteoporosis without current pathological fracture Class 2 severe obesity due to excess calories with serious comorbidity and body mass index (BMI) of 37.0 to 37.9 in adult (HCC) documented in this encounter Care Teams Landscape Foreman Relationship Specialty Start Date End Date Lalito England MD [address] [place] [address] PCP - General 08/03/19 documented as of this encounter
--- OUTSIDE RECORDS SUMMARY | 2024-07-11 22:41 | XMS_ITS | Encounter Summary ---
Author Organization [facility] Address [address] [place] [address] Care Team Providers Care Flagman Name Role Phone Clayton Sandoval MD Primary Care Provider + Encounter Details Date Type Department Care Team (Late st Contact Info) Description 11/04/2017 2:23 PM CDT - 11/04/2017 11:59 PM CDT Hospital Encounter [facility] [address] [place] [id number] Clayton Sandoval MD [address] [place] [address] Abdominal pain, left upper quadrant Discharge Disposition: Discharge to home or self care Social History Tobacco Use Types Packs/Day Years Used Date Smoking Tobacco: Never Smokeless Tobacco: Never Alcohol Use Standard Drinks/Week Comments Yes 0 (1 standard drink = 0.6 oz pur e alcohol) Comments No Sex and Gender Information Value Date Recorded Sex Assigned at Not on file 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 3 amLODIPine (NORVASC) 10 mg tabletIndication s:Essential hypertension,Jorge Luis ateral leg edema Take 0.5 tablets (5 mg total) by mouth daily. 45 tablet 3 03/31/2017 8 amoxicillin (AMOXIL) 500 mg tablet/capsule Take 4 tablets 1 hour before procedure 4 tablet/capsule 5 04/02/2017 9 aspirin-acetamin ophen-caffeine (EXCEDRIN MIGRAINE) 250-250-65 mg per tablet Take 1 tablet by mouth every 6 (six) hours as needed. 2 biotin 10,000 mcg capsule Take by mouth. 9 blood glucose diagnostic (CONTOUR NEXT STRIPS) strip [...] per day 0 0 08/10/2007 4 fluticasone (FLONASE) 50 mcg/actuation nasal spray inhale 2 spray by Intranasal route every day in each nostril 0 05/26/2012 0 fluticasone-derek nterol (BREO ELLIPTA) 100-25 mcg/dose diskus inhaler Inhale 1 puff daily. Rinse mouth with water after use to reduce aftertaste and incidence of candidiasis. Do not swallow. 9 gabapentin (NEURONTIN) 300 mg capsule take 2 Capsule by oral route every day 0 0 07/21/2015 1 insulin glargine (LANTUS) 100 unit/mL (3 [...] 3 12/23/2016 0 simvastatin (ZOCOR) 40 mg tablet Take 1 tablet (40 mg total) by mouth nightly. 30 tablet 11 01/16/2017 8 traMADol (ULTRAM) 50 mg tablet take 1 tablet by ORAL route every 6 hours as needed 60 2 06/21/2013 [address] dfvg-qkikiwdo-pv ter (RECLAST) 5 mg/100 mL piggyback tud 1 Syringe 0 08/14/2015 0 documented as of this encounter Discharge Disposition Disposition Code Departure Means Destination Discharge to home or self care documented in this encounter Plan of Treatment Not on file documented as of this encounter Procedures Procedure Name Priority Date/Time Associated Diagnosis Comments US ABDOMEN COMPLETE Schedule Routine, Read Routine (OP Routine) 11/04/2017 3:34 PM CDT Abdominal pain, left upper quadrant documented in this encounter Results * US Abdomen Complete (11/04/2017 3:34 PM CDT) Anatomical Region Laterality Modality Abdomen N/A Ultrasound Impressions 11/04/2017 3:36 PM CDT Evidence of fatty change of the liver. Electronically signed by: Kit Luong M.D. Narrative 11/04/2017 3:36 PM CDT EXAM: Abdominal ultrasound complete HISTORY: Left upper quadrant pain. COMPARISON: CT of the chest and abdomen from 10/24/2014 FINDINGS: The visible pancreas is normal as are the abdominal aorta and IVC. Decreased hepatic through-transmission is consistent with fatty change of the liver. ??The liver is free of discrete mass or biliary dilation. No gallstone, gallbladder wall thickening, or pericholecystic fluid is noted. ??The common bile duct is not dilated. No ascites is present. The right kidney measures 11.3 x 3.9 x 5.0 cm. ??The left kidney measures 10.6 x 5.5 x 5.4 cm. ??The kidneys demonstrate normal parenchymal echogenicity and cortical thickness. ??No hydronephrosis or calculus is evident. ??The spleen is normal in size and demonstrates normal echogenicity. Procedure Note Kit Luong MD - 11/04/2017 EXAM: Abdominal ultrasound complete HISTORY: Left upper quadrant pain. COMPARISON: CT of the chest and abdomen from 10/24/2014 FINDINGS: The visible pancreas is normal as are the abdominal aorta and IVC. Decreased hepatic through-transmission is consistent with fatty change of the liver. The liver is free of discrete mass or biliary dilation. No gallstone, gallbladder wall thickening, or pericholecystic fluid is noted. The common bile duct is not dilated. No ascites is present. The right kidney measures 11.3 x 3.9 x 5.0 cm. The left kidney measures 10.6 x 5.5 x 5.4 cm. The kidneys demonstrate normal parenchymal echogenicity and cortical thickness. No hydronephrosis or calculus is evident. The spleen is normal in size and demonstrates normal echogenicity. IMPRESSION: Evidence of fatty change of the liver. Electronically signed by: Kit Luong M.D. Clayton Sandoval MD [facility] [place] PROCEDURES Final Result documented in this encounter Visit Diagnoses Diagnosis Abdominal pain, left upper quadrant documented in this encounter Care Teams Flagman Relationship Specialty Start Date End Date Clayton Sandoval MD [address] [place] [address] PCP - General 10/11/16 08/02/19 documented as of this encounter
--- OUTSIDE RECORDS SUMMARY | 2024-07-11 22:41 | XMS_ITS | Encounter Summary ---
Author Organization [facility] Address [address] [place] [address] Care Team Providers Care Wildlife Technician Name Role Phone Clayton Sandoval MD Primary Care Provider + Encounter Details Date Type Department Care Team (Late st Contact Info) Description 09/28/2018 12:00 PM CDT - 09/28/2018 12:30 PM CDT Surgery [address] [address] Karlene Ramirez MD [address] [place] [id number] Colon Biopsy Surgery Details Date/Time Status Location OR Service Patient Class Case Class Case Type Trauma Case? 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 Gender Identity Not on file Sexual Orientation Not on file documented as of this encounter Last Filed Vital Signs Vital Sign Reading Time Taken Comments Blood Pressure 107/56 09/28/2018 12:27 PM CDT Pulse 75 09/28/2018 12:27 PM CDT Temperature 37 ??C (98.6 ??F) 09/28/2018 11:24 AM CDT Respiratory Rate 19 09/28/2018 12:27 PM CDT Oxygen Saturation 97% 09/28/2018 12:27 PM CDT Inhaled Oxygen Concentration - - Weight 116.1 kg (256 lb) 09/28/2018 11:24 AM CDT Height 167.6 cm (5' 6 ) 09/28/2018 11:24 AM CDT Body Mass Index 41.32 09/28/2018 11:24 AM CDT documented in this encounter Medications [...] Take 2.5 mg by mouth daily 0 amoxicillin (AMOXIL) 500 mg tablet/capsule Take 4 [...] day in each nostril 0 05/26/2012 0 gabapentin (NEURONTIN) 300 mg capsule take [...] as directed 300 each 3 12/23/2016 0 traMADol (ULTRAM) 50 mg tablet take 1 tablet by ORAL route every 6 hours as needed 60 2 06/21/2013 [address] zoledronic ysly-qmldloap-xk ter (RECLAST) 5 mg/100 mL piggyback tud 1 Syringe 0 08/14/2015 0 documented as of this encounter Discharge Disposition Disposition Code Departure Means Destination Discharge to home or self care documented in this encounter H&P Notes * Karlene Ramirez MD - 09/28/2018 12:22 PM CDT History and Physical Date of visit: 09/28/2018 Subjective: Patient is a 68 y.o. female presented for evaluation for screening for colon cancer. H/o polyps, father had colon cancer. Past Medical History: Diagnosis Date ??? Benign hypertension with CKD (chronic kidney disease) stage III (CMS/HCC) ??? Gastroesophageal reflux disease GERD ??? HX OTHER MEDICAL PMO ??? 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 HX OTHER MEDICAL [facility] OA ??? HX OTHER MEDICAL 2008 Discectomy, cervical ??? HX OTHER MEDICAL Fall ??? HX OTHER MEDICAL Left proximal femoral Gamma Nail fixation proximal; Comments: [facility] 07/25/2015 - ??? HX OTHER MEDICAL RTKR 2001.; Comments: [facility] 07/25/2015 - ??? HX OTHER MEDICAL LTKR 2006.; Comments: [facility] 07/25/2015 - ??? HX OTHER MEDICAL Back surgery 2007.; Comments: [facility] 07/25/2015 - ??? HX OTHER MEDICAL Cervical disc surg. 2008.; Comments: [facility] 07/25/2015 - ??? HX OTHER MEDICAL Breast reduction 2009.; Comments: [facility] 07/25/2015 - ??? HX OTHER MEDICAL left [...] 6 (six) hours as needed for wheezing. 09/24/2018 ??? alendronate (FOSAMAX) 70 mg tablet Take 70 mg by mouth every 7 days Take in the morning with a full glass of water, on an empty stomach, and do not take anything else by mouth or lie down for thenext 30 min. Past Week ??? amLODIPine (NORVASC) 2.5 mg tablet Take 2.5 mg by mouth daily 09/28/2018 at Unknown time ??? calcium carbonate-vitamin D3 500 mg(1,250mg) -400 unit tablet Take one by mouth two times per day 0 0 09/27/2018 at Unknown time ??? cloNIDine (CATAPRES) 0.1 mg tablet Take 0.1 mg by mouth 2 (two) times a day 1/2 tablet by [id number] 09/28/2018 at Unknown time ??? fluticasone (FLONASE) 50 mcg/actuation nasal spray inhale 2 spray by Intranasal route every dayin each nostril 0 09/27/2018 at Unknown time ??? gabapentin (NEURONTIN) 300 mg capsule take 2 Capsule by oral route every day 0 0 09/27/2018 at Unknown time ??? insulin glargine (LANTUS) 100 unit/mL (3 mL) insulin pen Inject 0.44 mL (44 Units total) under the skin daily. (Patient taking differently: Inject 48 Units under the skin daily ) 5 pen 3 09/27/2018 at Unknown time ??? insulin lispro (HumaLOG KwikPen) 100 unit/mL insulin pen Inject 0.3 mL (30 Units total) under the skin 3 (three) times a day with meals. (Patient taking differently: Inject 32 Units under the skin 3 (three) times a day with meals ) 81 mL 3 09/27/2018 at Unknown time ??? irbesartan-hydroCHLOROthiazide (AVALIDE) 300-12.5 mg per tablet TAKE ONE TABLET BY MOUTH ONCE DAILY 90 3 09/28/2018 at Unknown time ??? metFORMIN (GLUCOPHAGE) 500 mg tablet TAKE TWO TABLETS BY MOUTH TWICE A DAY 120 11 09/27/2018 at Unknown time ??? montelukast (SINGULAIR) 10 mg tablet take 1 tablet (10MG) by ORAL route every day in the evening 0 09/27/2018 at Unknown time ??? pantoprazole DR (PROTONIX) 40 mg EC tablet TAKE ONE TABLET BY MOUTH TWICE A DAY 90 3 09/27/2018 at Unknown time ??? traMADol (ULTRAM) 50 mg tablet take 1 tablet by ORAL route every 6 hours as needed 60 2 09/27/2018 at Unknown time ??? amoxicillin (AMOXIL) 500 mg tablet/capsule Take 4 tablets 1 hour before procedure 4 tablet/capsule 5 Taking ??? krggtgv-jtvzpedbzvvtt-qlbpvfhu (EXCEDRIN MIGRAINE) 250-250-65 mg per tablet Take 1 tablet by mouth every 6 (six) hours as needed. Unknown at Unknown time ??? biotin 10,000 mcg capsule Take by mouth. Not Taking ??? blood glucose diagnostic (CONTOUR NEXT STRIPS) [...] each 0 Unknown at Unknown time ??? lancets (MICROLET LANCET) misc test by fingerstick route 3 times daily 300 each 3 Taking ??? pen needle, diabetic (BD INSULIN PEN NEEDLE UF MINI) 31 gauge x 3/16 needle 1 needle as directed 300 each 3 Taking ??? zoledronic ppea-sgwwhveh-qwtjf (RECLAST) 5 mg/100 mL piggyback tud 1 Syringe 0 Taking Allergies Allergen Reactions ??? Hydrocodone Other (See comments) Reaction: migraines, , , can take tylenol Social History Tobacco Use ??? Smoking status: Never Smoker ??? Smokeless tobacco: Never Used Substance Use Topics ??? Alcohol use: Yes Family History Problem Relation Age of Onset [...] 1. Screening for colon cancer GI PLAN/RECOMMENDATIONS: 1. colonoscopy Karlene Ramirez MD documented in this encounter Procedure Notes * Karlene Ramirez MD - 09/28/2018 11:33 AM CDTAssociated Order(s): COLONOSCOPY [facility] Patient Name: Criss Renteria Procedure Date: 09/28/2018 11:33 AM Date of : 1950 Admit Type: Outpatient Age: 68 Gender: Female Attending MD: Karlene Ramirez M.D. [facility] 1 Note Status: Finalized Patient Profile: 68 WF, h/o polyps, father had coloncer, screening. Procedure: Colonoscopy Indications: Screening in patient at increased risk: Family history of 1st-degree relative with colorectal cancer, High risk colon cancer surveillance: Personal history of colonic polyps, Last colonoscopy: September 2013 Referring MD: Clayton Sandoval M.D. Providers: Karlene Ramirez M.D. Impression: - Four 3 to 5 mm polyps in the descending colon, removed with a jumbo cold forceps. Resected and retrieved. - Internal hemorrhoids. Recommendation: - Await pathology results. - Continue present medications. - Repeat colonoscopy in 3 years for screening purposes. Medicines: Monitored Anesthesia Care Complications: No immediate [...] obtained. Prior Anticoagulants: The patient has taken aspirin, last dose was day of procedure. ASA Grade Assessment: III - A patient with severe systemic disease. After reviewing the risks and benefits, the patient was deemed in satisfactory condition to undergo the procedure. The benefits, risks and alternatives of the procedure and sedation were discussed and informed consent was obtained. All questions were answered. Please refer to the signed informed consent document in the medical record. The scope was passed under direct vision. The Pediatric Colonoscope PCF-H190L [id number] was introduced through the anus and advanced to the the cecum, identified by appendiceal orifice and ileocecal valve. The colonoscopy was performed without difficulty. The patient tolerated the procedure well. The quality of the bowel preparation was good. Findings: The perianal and digital rectal examinations were normal. The cecum appeared normal. The ascending colon and transverse colon were unremarkable. Four sessile polyps were found in the descending colon. The polyps were 3 to 5 mm in size. These polyps were removed with a jumbo cold forceps. Resection and retrieval were complete. Internal hemorrhoids were found during retroflexion. The hemorrhoids were medium-sized. Electronically signed by Karlene Ramirez M.D. Karlene Ramirez M.D. 09/28/2018 12:29:39 PM Number of Addenda: 0 Note Initiated On: 09/28/2018 11:33 AM Procedure Code(s): --- Professional --- 45196, Colonoscopy, flexible; with biopsy, single or multiple Diagnosis Code(s): --- Professional --- Z80.0, Family history of malignant neoplasm of digestive organs Z86.010, Personal history of colonic polyps K64.8, Other hemorrhoids D12.4, Benign neoplasm of descending colon CPT copyright 2017 [employer]. All rights reserved. The codes documented in this report are preliminary and upon rope silica machine operator review may be revised to meet current compliance requirements. Recognized by the [place] [employer] for promoting quality in endoscopy documented in this encounter Miscellaneous Notes * Perioperative Nursing Note - Jazmin Martin, RN - 09/28/2018 1:[address] Ramirez was here and talked to pt and her sister. documented in this encounter Plan of Treatment Not on file documented as of this encounter Procedures Procedure Name Priority Date/Time Associated Diagnosis Comments SURGICAL PATHOLOGY STAT 09/28/2018 2: 58 PM CDT Hx of colonic polyps Family hx of colon cancer COLON BIOPSY 09/28/2018 11:46 AM CDT Hx of colonic polyps Family hx of colon cancer POCT GLUCOSE DEVICE Routine 09/28/2018 1 1:45 AM CDT COLONOSCOPY 09/28/2018 11:33 AM CDT documented in this encounter Results * Surgical pathology (09/28/2018 2:58 PM CDT) Tissue (Polyp(s), colon/colorectal, esophageal, gastric) 09/28/2018 12:20 PM CDT Narrative PATHOLOGY [facility] ([facility]) - 09/30/2018 10:00 AM CDT EPIC results best viewed via link to PDF [facility] Department of Pathology [address] [place] [address] Final Report Patient Name: ??CRISS RENTERIARamo Address: ??[address] [place] [address], ??[place], [place] ??[address] Gender: ??F : ??1950 (Age: 68) Service: ??Gastro Location: [facility] #: ??[id number] [facility]: [facility] Accession # ?[id number] Taken: ??09/28/2018 Received: ??09/28/2018 Accessioned: ??09/28/2018 Reported: ??09/30/2018 Physician(s):Dr. Karlene Ramirez M.D. Diagnosis: Descending colon, biopsies: ? - Tubular adenoma(s) Radha Simms M.D. Report Electronically Reviewed and Signed Out By ??Radha Simms M.D. ??09/30/2018 10:00:23 Specimen(s) Received: A: Colon, biopsy Microscopic Description: Microscopic examination of the biopsies from the descending colon, each examined at multiple levels, reveals a benign pattern with alterations that support the clinical impression of polyps. ??These are adenomatous lesions that have a tubular architectural arrangement. Clinical History: History of colonic polyps. ??Family history of colon cancer. ??Descending colon polyps. ??Colonoscopy. Gross Description: The specimen is submitted in a single container labeled Criss Liza Renteria and descending colon polyps . ??It is seven myers tissue fragments measuring 1-2 mm. ??All in one cassette. ??Micah Kwan M.D./Ana Montgomery, PRamoA. REPORT IMAGES AND SCANNED DOCUMENTS, IF INCLUDED, ONLY VIEWABLE IN PDF VERSION OF REPORT The performance characteristics of some immunohistochemical stains, fluorescence in-situ hybridization tests and immunophenotyping by flow cytometry cited in this report (if any) were determined by the Surgical Pathology Department at [facility] as part of an ongoing air quality technician program and in compliance with federally mandated [...] characteristics determined by the Surgical Pathology Department [facility]. ??It has not been cleared or approved by the U. S. Food and Drug Administration. Karlene Ramirez MD LAB PATHOLOGY ORDERABLES F inal Result Performing Organization Address [facility]/ZIP Co de Phone Number PATH[facility]Y [facility] ([facility] [address] [place] [phone] * (ABNORMAL) POCT glucose (09/28/2018 11:45 AM CDT) Glucose, POC 161(H) 71 - 98 mg/dL [facility] ([facility]) Blood specimen (specimen) 09/28/2018 11:45 AM CDT 09/28/2018 11:45 AM CDT Narrative [facility] ([facility]) - 09/28/2018 11:48 AM CDT Karlene Ramirez MD LAB POCT ORDERABLES - MUKESH CE Final Result Performing Organization Address [facility]/ZIP Co de Phone Number [facility] ([facility]) [address] [place] [address] Department [place] [address] * COLONOSCOPY (09/28/2018 11:33 AM CDT) Anatomical Region Laterality Modality Other Narrative Procedure Note Karlene Ramirez MD - 09/28/2018 11:33 AM CDT [facility] Patient Name: Criss Renteria Procedure Date: 09/28/2018 11:33 AM Date of : 1950 Admit Type: Outpatient Age: 68 Gender: Female Attending MD: Karlene Ramirez M.D. [facility]: [facility] 1 Note Status: Finalized Patient Profile: 68 WF, h/o polyps, father had coloncer, screening. Procedure: Colonoscopy Indications: Screening in patient at increased risk: Familyhistory of 1st-degree relative with colorectal cancer, High risk colon cancer surveillance: Personal history of colonic polyps, Last colonoscopy: September 2013 Referring MD: Clayton Sandoval M.D. Providers: Karlene Ramirez M.D. Impression: - Four 3 to 5 mm polyps in the descending colon, removed with a jumbo cold forceps. Resected and retrieved. - Internal hemorrhoids. Recommendation: - Await pathology results. - Continue present medications. - Repeat colonoscopy in 3 years for screeningpurposes. Medicines: Monitored Anesthesia Care Complications: No immediate [...] obtained. Prior Anticoagulants: The patient has taken aspirin, last dose was day of procedure. ASA Grade Assessment: III- A patient with severe systemic disease. Afterreviewing the risks and benefits, the patient was deemed in satisfactory condition to undergo the procedure. The benefits, risks and alternatives of theprocedure and sedation were discussed and informed consent was obtained. All questions were answered. Please referto the signed informed consent document in the medical record. The scope was passed under direct vision.The Pediatric Colonoscope PCF-H190L [id number] was introduced through the anus and advanced to the the cecum, identified by appendiceal orifice andileocecal valve. The colonoscopy was performed without difficulty. The patient tolerated the procedurewell. The quality of the bowel preparation was good. Findings: The perianal and digital rectal examinations were normal. The cecum appeared normal. The ascending colon and transverse colonwere unremarkable. Four sessile polyps were found in the descending colon. The polypswere 3 to 5 mm in size. These polyps were removed with a jumbo coldforceps. Resection and retrieval were complete. Internal hemorrhoids were found during retroflexion. The hemorrhoids were medium-sized. Electronically signed by Karlene Ramirez M.D. Karlene Ramirez M.D. 09/28/2018 12:29:39 PM Number of Addenda: 0 Note Initiated On: 09/28/2018 11:33 AM Procedure Code(s): --- Professional --- 61214, Colonoscopy, flexible; with biopsy, single or multiple Diagnosis Code(s): --- Professional --- Z80.0, Family history of malignant neoplasm of digestive organs Z86.010, Personal history of colonic polyps K64.8, Other hemorrhoids D12.4, Benign neoplasm of descending colon CPT copyright 2017 [employer]. All rights reserved. The codes documented in this report are preliminary and upon rope silica machine operator reviewmay be revised to meet current compliance requirements. Recognized by the [place] [employer] for promoting quality in endoscopy Karlene Ramirez MD ENDOSCOPY PROCEDURES Final Result documented in this encounter Visit Diagnoses Diagnosis Hx of colonic polyps Personal history of colonic polyps Family hx of colon cancer Family history of malignant neoplasm of gastrointestinal tract Hx of colonic polyps Personal history of colonic polyps Family hx of colon cancer Family history of malignant neoplasm of gastrointestinal tract documented in this encounter Admitting Diagnoses Diagnosis Hx of colonic polyps Personal history of colonic polyps Family hx of colon cancer Family history of malignant neoplasm of gastrointestinal tract documented in this encounter Administered Medications Inactive Administered Medications - up to 3 most recent administrations Medication Order MAR Action Action Date Dose Rate Site ondansetron (ZOFRAN) injection 4 mg 4 mg, intravenous, Administer over 2 Minutes, Every 30 min PRN, nausea, vomiting, Starting on Fri09/28/18 at 1119, For 2 doses, Recovery (GI), Indications: Nausea and VomitingIndications:Nausea and Vomiting sodium chloride 0.9% flush 0.5-20 mL 0.5-20 mL, intra-catheter, Every 8 hours scheduled, First dose on Fri09/28/18 at 1400, Pre-Procedure (GI), Flush volume based on line type and size. sodium chloride 0.9% flush 0.5-20 mL 0.5-20 mL, intra-catheter, As needed, line care, Starting on Fri09/28/18 at 1120, Pre-Procedure (GI), Flush volume based on line type and size. Flush before and after each use. sodium chloride 0.9% infusion 30 mL/hr, intravenous, Continuous, Starting on Fri09/28/18 at 1200, Pre-Procedure (GI) New Bag 09/28/2018 11:40 AM CDT sodium chloride 0.9% infusion 125 mL/hr, intravenous, Continuous, Starting on Fri09/28/18 at 1200, Recovery (GI) documented in this encounter Discontinued Medications Medication Sig Discontinue Reason Start Date End Da te fluticasone-vilanterol (BREO ELLIPTA) 100-25 mcg/dose diskus inhaler Inhale 1 puff daily. Rinse mouth with water after use to reduce aftertaste and incidence of candidiasis. Do not swallow. Therapy completed 09/28/2018 documented as of this encounter Historical Medications * This list may reflect changes made after this encounter. alendronate (FOSAMAX) 70 mg tablet Take 70 mg by mouth every 7 days Take in the morning with a full glass of water, on an empty stomach, and do not take anything else by mouth or lie down for the next 30 min. 08/02/2019 amLODIPine (NORVASC) 2.5 mg tabletIndication s:hypertension Take 2.5 mg by mouth daily 08/02/2019 cloNIDine (CATAPRES) 0.1 mg tabletIndication s:hypertension Take 0.1 mg by mouth 2 (two) times a day 1/2 tablet by mouth 08/02/2019 added in this encounter Active and Recently Administered Medications Times are shown in CDT. Scheduled Medication Order 09/26/2018 09/27/2018 09/28/2018 sodium chloride 0.9% flush 0.5-20 mL 0.5-20 mL, intra-catheter, Every 8 hours scheduled, First dose on Fri09/28/18 at 1400, Pre-Procedure (GI), Flush volume based on line type and size. Continuous Medication Order 09/26/2018 09/27/2018 09/28/2018 sodium chloride 0.9% infusion 30 mL/hr, intravenous, Continuous, Starting on Fri09/28/18 at 1200, Pre-Procedure (GI) 1140 (New Bag - Prov ider: Alexey Gray, [facility]) sodium chloride 0.9% infusion 125 mL/hr, intravenous, Continuous, Starting on Fri09/28/18 at 1200, Recovery (GI) 1200 (Due) PRN Medication Order 09/26/2018 09/27/2018 09/28/2018 ondansetron (ZOFRAN) injection 4 mg 4 mg, intravenous, Administer over 2 Minutes, Every 30 min PRN, nausea, vomiting, Starting on Fri09/28/18 at 1119, For 2 doses, Recovery (GI), Indications: Nausea and Vomiting sodium chloride 0.9% flush 0.5-20 mL 0.5-20 mL, intra-catheter, As needed, line care, Starting on Fri09/28/18 at 1120, Pre-Procedure (GI), Flush volume based on line type and size. Flush before and after each use. documented in this encounter Orders Medications Ordered That Cash ht Not Have Been Administered Count Last Ordered Date First Ordered Date ondansetron (ZOFRAN) injection 4 mg 1 09/28 sodium chloride 0.9% flush 0.5-20 mL 2 09/11 sodium chloride 0.9% infusion 2 09/28/2018 documented in this encounter Care Teams Wildlife Technician Relationship Specialty Start Date End Date Clayton Sandoval MD [address] [address] PCP - General 10/11/16 08/02/19 documented as of this encounter
--- OUTSIDE RECORDS SUMMARY | 2024-07-11 22:41 | XMS_ITS | Encounter Summary ---
Author Organization [facility] Address [address] [place] [address] Care Team Providers Care Neuroradiologist Name Role Phone Clayton Sandoval MD Primary Care Provider + Reason for Visit * Reason Onset Date Comments schedule colonoscopy 07/22/2018 Encounter Details Date Type Department Care Team (Late st Contact Info) Description 07/22/2018 Telephone [facility] Gastroenterology at [address] [place] [address] Jennyfer Mendez MA schedule colonoscopy Social History Tobacco Use Types Packs/Day Years Used Date Smoking Tobacco: Never Smokeless Tobacco: Never Alcohol Use Standard Drinks/Week Comments Yes 0 (1 standard drink = 0.6 oz pur e alcohol) Comments No Sex and Gender Information Value Date Recorded Sex Assigned at Not on file 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 Gender Identity Not on file Sexual Orientation Not on file documented as of this encounter Miscellaneous Notes * Addendum Note - Jennyfer Mendez MA - 09/04/2018 3:05 PM CSTAddended by: JENNYFER MENDEZ on: 09/04/2018 03:05 PM Modules accepted: Orders HIC ART TECHNICIAN * Telephone Encounter - Jennyfer Mendez MA - 09/04/2018 2:58 PM CST Pt is scheduled for a colonoscopy with dr caceres on Friday09-28-18 at 12pm, verbal instructions given and mailed to verified address Last colonoscopy: 06-16-13 Family history colon cancer (if yes, relationship to pt): father Personal history colon polyps or colon cancer: polyps Pt on blood thinner (if yes, list medication and reason for taking): no Has pt had recent stent placement within the last year: no Pt have pacemaker/defibrillator: no Pt diabetic (if yes, insulin or oral meds): insulin Pt have kidney disease or on dialysis: no Pt on iron: no Instructed pt to call with any medical changes and/or medications/insurance. HIC ART TECHNICIAN * Telephone Encounter - Jennyfer Mendez MA - 08/10/2018 10:04 AM CST Unable to contact pt to schedule HIC ART TECHNICIAN * Telephone Encounter - Jennyfer Mendez MA - 08/03/2018 3:34 PM CST lvm for pt to call back and schedule a colonoscopy with dr caceres HIC ART TECHNICIAN * Telephone Encounter - Jennyfer Mendez MA - 07/22/2018 12:40 PM CST lvm for pt to call back and schedule a colonoscopy with dr caceres HIC ART TECHNICIAN documented in this encounter Plan of Treatment Not on file documented as of this encounter Visit Diagnoses Diagnosis Hx of colonic polyps- Primary Personal history of colonic polyps Family hx of colon cancer Family history of malignant neoplasm of gastrointestinal tract documented in this encounter Orders Case Request Count Last Ordered Date First Orde red Date CASE REQUEST GI 1 09/04/2018 documented in this encounter Care Teams Neuroradiologist Relationship Specialty Start Date End Date Clayton Sandoval MD [address] [place] [place] [address] PCP - General 3/31/17 1/20/20 documented as of this encounter
--- OUTSIDE RECORDS SUMMARY | 2024-07-11 22:41 | XMS_ITS | Encounter Summary ---
Author Organization [facility] Healthcare Address [address] [place] [address] Care Team Providers Care Dynamometer Mechanic Name Role Phone Clayton Sandoval MD Primary Care Provider + Encounter Details Date Type Department Care Team (Late st Contact Info) Description 03/20/2017 11:06 AM CDT - 03/20/2017 11:59 PM T Hospital Encounter CH OP INTERIM Clayton Sandoval MD [address] [place] [address] Discharge Disposition: Discharge to home or self care Social History Tobacco Use Types Packs/Day Years Used Date Smoking Tobacco: Never Alcohol Use Standard Drinks/Week Comments Yes 0 (1 standard drink = 0.6 oz pur e alcohol) Comments Unknown Sex and Gender Information Value Date Recorded Sex Assigned at Not on file 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 3 amLODIPine (NORVASC) 10 mg tablet TAKE ONE TABLET BY MOUTH ONCE DAILY 30 11 07/18/2016 7 aspirin-acetami nophen-caffeine (EXCEDRIN MIGRAINE) 250-250-65 mg per tablet Take [...] A DAY 300 strip 11 07/04/2014 1 budesonide-form oterol (SYMBICORT) 160-4.5 mcg/actuation inhaler inhale 2 puff by inhalation route 2 times every day in the morning and evening 0 Inhaler 0 07/21/2015 7 calcium carbonate-vitam in D3 500 mg(1,250mg) -400 unit tablet Take one by mouth two times per day 0 0 08/10/2007 4 fluticasone (FLONASE) 50 mcg/actuation nasal spray inhale 2 spray by Intranasal route every day in each nostril 0 05/26/2012 0 fluticasone-neil anterol (BREO ELLIPTA) 100-25 mcg/dose diskus inhaler Inhale 1 puff daily. Rinse mouth with water after use to reduce aftertaste and incidence of candidiasis. Do not swallow. 9 gabapentin (NEURONTIN) 300 mg capsule take 2 Capsule by oral route every day 0 0 07/21/2015 1 glimepiride (AMARYL) 4 mg tablet TAKE ONE TABLET BY MOUTH ONCE DAILY 90 2 07/04/2014 7 insulin lispro (HumaLOG KwikPen) 100 unit/mL insulin pen Inject 0.3 mL (30 Units total) under the skin 3 (three) times a day with meals. 81 mL 3 02/03/2017 0 irbesartan-hydr oCHLOROthiazide (AVALIDE) 300-12.5 mg per tablet TAKE ONE TABLET BY MOUTH ONCE DAILY 90 3 08/18/2013 0 LANTUS SOLOSTAR 100 unit/mL (3 mL) insulin pen INJECT 48 UNITS SUBCUTANEOUSLY DAILY 3 mL 3 01/31/2017 7 metFORMIN (GLUCOPHAGE) 500 mg tablet TAKE TWO TABLETS BY MOUTH TWICE A DAY 120 11 06/24/2014 0 montelukast (SINGULAIR) 10 mg tablet take 1 tablet (10MG) by ORAL route every day in the evening 0 09/18/2016 2 olopatadine (PATADAY) 0.2 % ophthalmic solution instill 1 drop by ophthalmic route every day into affected eye(s) 1 Bottle 2 09/18/[address] (PROTONIX) 40 mg EC tablet TAKE ONE TABLET BY MOUTH TWICE A DAY 90 3 09/07/2014 0 pen needle, diabetic (BD INSULIN PEN NEEDLE UF MINI) 31 gauge x 09/26 needle 1 needle as directed 300 each 3 12/23/2016 0 simvastatin (ZOCOR) 40 mg tablet TAKE ONE TABLET BY MOUTH EVERY EVENING 156 11 06/28/2010 7 simvastatin (ZOCOR) 40 mg tablet Take 1 tablet (40 mg total) by mouth nightly. 30 tablet 11 01/16/2017 8 traMADol (ULTRAM) 50 mg tablet take 1 tablet by ORAL route every 6 hours as needed 60 2 06/21/2013 2 traZODone (DESYREL) 50 mg tablet Take 1 tablet (50 mg total) by mouth nightly as needed for sleep. 90 tablet 3 12/27/2016 7 zoledronic syqn-itpikpbr-f ater (RECLAST) 5 mg/100 mL piggyback tud 1 Syringe 0 08/14/2015 0 documented as of this encounter Discharge Disposition Disposition Code Departure Means Destination Discharge to home or self care documented in this encounter Plan of Treatment Not on file documented as of this encounter Procedures Procedure Name Priority Date/Time Associated Diagnosis Comments URINALYSIS, MICROSCOPIC ONLY Routine 03/20/2017 11:06 AM CDT URINE CULTURE Routine 03/20/2017 11:06 AM CDT DISCHARGE LABORATORY CUMULATIVE REPORT 03/20/2017 12:00 AM CDT documented in this encounter Results * Urine culture (03/20/2017 11:06 AM CDT) Report Final Report: Insignifican t growth based on current clinical standards. CERNER Comment:Testing performed by : [facility], [address] [place]., [address] Urine 03/20/2017 11:0 6 AM CDT 03/20/2017 7:25 PM CDT Narrative CERNER CH - 03/21/2017 1:12 PM CDT Clayton Sandoval MD LAB MICROBIOLOGY - GENER AL ORDERABLES Final Result Performing Organization Address [facility] Co de Phone Number [facility] [phone] [place] [address] * Urinalysis, microscopic only (03/20/2017 11:06 AM CDT) RBC, ur 1 0 - 3 /HPF CERNER WBC, ur 3 0 - 5 /HPF CERNER Bacteria, ur [facility] Epithelial cells, renal, ur 0 0 - 0 /HPF [facility] Epithelial cells, squamous, ur 5 /LPF [facility] Mucus, ur Present CERNER Urine 03/20/2017 11:0 6 AM CDT 03/20/2017 4:03 PM CDT Clayton Sandoval MD LAB URINE ORDERABLES Fin al Result Performing Organization Address [facility]/ZIP Co de Phone Number [facility] [address] [place] [address] * DISCHARGE LABORATORY CUMULATIVE REPORT (03/20/2017 12:00 AM CDT) Narrative 03/20/2017 12:00 AM CDT Ordered by an unspecified provider. Sofiya Gibbons MD LAB BLOOD ORDERABLES Jessica l Result documented in this encounter Visit Diagnoses Not on filedocumented in this encounter Care Teams Dynamometer Mechanic Relationship Specialty Start Date End Date Clayton Sandoval MD [address] [place] [address] PCP - General 10/11/16 08/02/19 documented as of this encounter
--- OUTSIDE RECORDS SUMMARY | 2024-07-11 22:41 | XMS_ITS | Encounter Summary ---
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
--- OUTSIDE RECORDS SUMMARY | 2024-07-11 22:41 | XMS_ITS | Encounter Summary ---
Author Organization [facility] Healthcare Address [address] [place] [address] Care Team Providers Care Pan Helper Name Role Phone Clayton Sandoval MD Primary Care Provider + Encounter Details Date Type Department Care Team (Late st Contact Info) Description 09/28/2018 11:57 AM CDT Anesthesia Event [address] [address] [place] [address] [facility] [address] [place] [address] Aelxey Gray CRNA [address] [place] [id number] Anesthesia Record Procedure Summary Procedure Name Responsible Anesthesiologist Anesthesia Start Time Anesthesia Stop Time Colon Biopsy Keshawn Macias MD 09/28/18 1157 0 09/28/18 1219 Events Date Time Event Comment 09/28/2018 1139 1151 In Room 1157 An Start 1157 An Start Data 1158 Start Supplemental O2 1159 Patient Positioned Laterally 1159 An Induction The patient was reevaluated immediately before moderate or deep sedation use and before anesthesia induction. 1159 Anesthesia Ready 1201 Proc Start 1219 an stop data 1219 An Stop 1219 Handoff to RN I completed my handoff [...] Patient disposition at the time of handoff: No value filed. 1223 Out of Room Meds Name Total lidocaine (cardiac) syringe 2 % 100 mg propofol 250 mg sodium chloride 0.9% infusion 0 mL * Agents Name O2 * Blood No blood administrations on file. Lines, Drains, and Airways Type Details Placement Removal Peripheral IV Placement Date: 09/11 03/01; Placement Time: 1147; Catheter Size: 20 G; Orientation: Right; Location: Forearm; Site Prep: Chlorhexidine; Inserted by: wendi Martin rn; Insertion Attempts: 1; Patient Tolerance: Tolerated well; Removal Date: 09/28/18; Removal Time: 1305 09/28/18 1147 by Jazimn Martin RN 09/28/18 1305 by Jazmin Martin, RN documented in this encounter Social History Tobacco Use Types Packs/Day Years Used Date Smoking Tobacco: Never Smokeless Tobacco: Never Alcohol Use Standard Drinks/Week Comments Yes 0 (1 standard drink = 0.6 oz pur e alcohol) Comments No Sex and Gender Information Value Date Recorded Sex Assigned at Not on file 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 Gender Identity Not on file Sexual Orientation Not on file documented as of this encounter OR Notes * Anesthesia Postprocedure Evaluation - Keshawn Macias MD - 09/28/2018 12:19 PM CDT Patient: Criss Ly Procedure Summary Date: 09/28/18 Room / Location: [facility]COPY ROOM 1 / [facility] Anesthesia Start: 1157 Anesthesia Stop: 1219 Procedure: COLONOSCOPY (N/A Colon) Diagnosis: Hx of colonic polyps Family hx of colon cancer (Hx of colonic polyps [Z86.010]) (Family hx of colon cancer [Z80.0]) Provider: Karlene Ramirez MD Responsible Provider: Keshawn Macias MD Anesthesia Type: general/TIVA ASA Status: 3 Anesthesia Type: general/TIVA Last vitals BP 154/66 Pulse 86 Temp 37 ??C (98.6 ??F) (Tympanic) Resp 18 SpO2 96% Anesthesia Post Evaluation Patient location during evaluation: PACU Patient participation: complete - patient participated Level of consciousness: fully awake Pain management: satisfactory to patient Airway patency: adequate Anesthetic complications: no Cardiovascular status: acceptable Respiratory status: acceptable Hydration status: acceptable Pt is: normothermic Nausea/Vomiting status: none * Anesthesia Preprocedure Evaluation - Alexey Gray CRNA - 09/28/2018 11:33 AM CDT Anesthesia Evaluation Criss Ly is a 68 y.o. female Procedure(s): COLONOSCOPY HISTORY Past Medical History Information obtained from: patient and chart. Neurological Neuro/Psych system: negative Cardiovascular + Hypertension Respiratory Comments: sarcoidosis Gastrointestinal + GERD - on [...] polyps ??? Family hx of colon cancer Past Medical History: Diagnosis Date ??? Benign hypertension with CKD (chronic kidney disease) stage III (CMS/HCC) ??? Gastroesophageal reflux disease GERD ??? HX OTHER MEDICAL PMO ??? 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 HX OTHER MEDICAL [facility]MC OA [...] of previous hip arthroplasty left hip; Comments: [facility] TCU unit 02/06 - 02/17/16 for [...] mg tablet amLODIPine (NORVASC) 2.5 mg tablet calcium carbonate-vitamin D3 500 mg(1,250mg) -400 unit tablet cloNIDine (CATAPRES) 0.1 mg tablet fluticasone (FLONASE) 50 mcg/actuation nasal spray gabapentin (NEURONTIN) 300 mg capsule insulin glargine (LANTUS) 100 unit/mL (3 mL) insulin pen insulin lispro (HumaLOG KwikPen) 100 unit/mL insulin pen irbesartan-hydroCHLOROthiazide (AVALIDE) 300-12.5 mg per tablet metFORMIN (GLUCOPHAGE) 500 mg tablet montelukast (SINGULAIR) [address] (PROTONIX) 40 mg EC tablet traMADol (ULTRAM) 50 mg tablet fluticasone-vilanterol (BREO ELLIPTA) 100-25 mcg/dose diskus inhaler amoxicillin (AMOXIL) 500 mg tablet/capsule muduzjp-naacjhmbffzfa-fgsejsza (EXCEDRIN MIGRAINE) 250-250-65 mg per tablet biotin 10,000 mcg capsule blood glucose diagnostic (CONTOUR NEXT STRIPS) strip blood glucose diagnostic (CONTOUR NEXT STRIPS) strip blood-glucose meter (CONTOUR NEXT USB METER) misc lancets (MICROLET LANCET) misc pen needle, diabetic (BD INSULIN PEN NEEDLE UF MINI) 31 gauge x 3/16 needle zoledronic hnjh-fcxennnc-cmylr (RECLAST) 5 mg/100 mL piggyback Current Facility-Administered Medications: ??? ondansetron (ZOFRAN) injection 4 mg, 4 mg, intravenous, Q30 Min PRN ??? sodium chloride 0.9% flush 0.5-20 mL, 0.5-20 mL, intra-catheter, Q8H GOPAL ??? sodium chloride 0.9% flush 0.5-20 mL, 0.5-20 mL, intra-catheter, PRN ??? sodium chloride 0.9% infusion, 30 mL/hr, intravenous, Continuous ??? sodium chloride 0.9% infusion, 125 mL/hr, intravenous, Continuous Social History Tobacco Use Smoking Status Never Smoker Smokeless Tobacco Never Used Substance and Sexual Activity Alcohol Use Yes Substance and Sexual Activity Drug Use Never Family History Problem Relation Age of Onset ??? Heart disease Father Heart disease; ??? Heart failure Father CHF; Cause of : CHF ??? Diabetes Mother Diabetes mellitus; ??? Hypertension Mother Hypertension; ??? Diabetes Brother Diabetes mellitus; ??? Lymphoma Brother Cancer -lymphoma; PAT Physical Exam Vitals: 09/28/18 1124 BP: 154/66 Pulse: 86 Resp: 18 Temp: 37 ??C (98.6 ??F) SpO2: 96% PT: No results found [...] for requested labs within last 720 hours. STOP-Bang Total Score: 5 DOS Physical Exam Medical history, medications, and allergies reviewed. Attestation: This PAT evaluation 09/28/2018. Airway Exam: Mallampati: II TM distance: >4 Jaw ROM: full Cardiovascular Exam: Rate: regular Rhythm: regular Pulmonary Exam: LCTA Anesthesia Plan ASA 3 Planned anesthesia: General/TIVA [...] free injection intravenous, As needed, Starting on Fri09/28/18 at 1159, Anesthesia Intra-op, Indications: Ventricular ArrhythmiasIndications:Ventricula r Arrhythmias Given 09/28/2018 11:59 AM CDT 100 mg propofol (DIPRIVAN) IV intravenous, As needed, Starting on Fri09/28/18 at 1159, Anesthesia Intra-op Given 09/28/2018 12:11 PM CDT 50 mg Given 09/28/2018 12:05 PM CDT 50 mg Given 09/28/2018 12:04 PM CDT 50 mg sodium chloride 0.9% infusion 30 mL/hr, intravenous, Continuous, Starting on Fri09/28/18 at 1200, Pre-Procedure (GI) New Bag 09/28/2018 11:40 AM CDT documented in this encounter Care Teams Pan Helper Relationship Specialty Start Date End Date Clayton Sandoval MD [address] [address] PCP - General 10/11/16 08/02/19 documented as of this encounter
--- OUTSIDE RECORDS SUMMARY | 2024-07-11 22:41 | XMS_ITS | Encounter Summary ---
Author Organization [facility] Address [address] [place] [address] Care Team Providers Care Structures Engineer Name Role Phone Clayton Sandoval MD Primary Care Provider + Reason for Visit * Reason Comments Diabetes Hypertension Encounter Details Date Type Department Care Team (Late st Contact Info) Description 12/27/2016 10:15 AM CDT Office Visit [facility] [address] [place] [address] [address] [place] [id number] Clayton Sandoval MD [id number] [place] [address] Adenomatous polyp of colon, unspecified part of colon (Primary Dx); Idiopathic osteoporosis with pathological fracture; Sarcoidosis (CMS/HCC); Mixed hyperlipidemia; Type 2 diabetes mellitus with stage 3 chronic kidney disease, with long-term current use of insulin ([facility]/HCC); Essential hypertension; Insomnia due to anxiety and fear; Situational anxiety Social History Tobacco Use Types Packs/Day Years Used Date Smoking Tobacco: Never Alcohol Use Standard Drinks/Week Comments Yes 0 (1 standard drink = 0.6 oz pur e alcohol) Comments Unknown Sex and Gender Information Value Date Recorded Sex Assigned at Not on file 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 Gender Identity Not on file Sexual Orientation Not on file documented as of this encounter Last Filed Vital Signs Vital Sign Reading Time Taken Comments Blood Pressure 130/72 12/27/2016 10:33 AM CDT Pulse 88 12/27/2016 10:33 AM CDT Temperature - - Respiratory Rate 20 12/27/2016 10:3 3 AM CDT Oxygen Saturation - - Inhaled Oxygen Concentration - - Weight 109.5 kg (241 lb 4.8 oz) 017 10:33 AM CDT Height 167.6 cm (5' 6 ) 12/27/2016 10:3 3 AM CDT Body Mass Index 38.95 12/27/2016 10:33 AM CDT documented in this encounter Ordered Prescriptions Prescription Sig Dispense Quantity Refills Last Filled Start Date End Date traZODone (DESYREL) 50 mg tablet Take 1 tablet (50 mg total) by mouth nightly as needed for sleep. 90 tablet 3 12/27/2016 7 documented in this encounter Progress Notes * Stormy Watkins MA - 12/27/2016 10:15 AM CDT Subjective/Objective Patient ID: Criss Ly is a 66 y.o. female. Chief Complaint Diabetes and Hypertension HPI Review of Systems Physical Exam Feet: Right Foot: Monofilament exam normal. Left Foot: Monofilament exam normal. Assessment/Plan There are no diagnoses linked to this encounter. Cosigned by Clayton Sandoval MD at 12/27/2016 11:07 AM CDT * Clayton Sandoval MD - 12/27/2016 10:15 AM CDT Subjective/Objective Patient ID: Criss Ly is a 66 y.o. female. Chief Complaint Diabetes and Hypertension HPI Under quite a bit of stress as her recently diagnosed with the terminal illnesses and she is having trouble with insomnia and anxiety No polyuria polydipsia or visual disturbances no hypoglycemia is No headache shortness chest pain and orthopnea PND or edema Past, family, social, med, allergies, health maintenance, interim labs and imaging studies reviewed. Please refer to the EHR for details. Review of Systems No change in weight. No fever chills, chills, or sweats. No change in vision. No glaucoma. No change in hearing. No nasal obstruction or drainage. No sore throat. No goiter. No change in voice. No hoarseness or dysphagia. No angina or chest pain. No dyspnea orthopnea or PND. No palpitations could be residual symptoms. No cough, sputum, dyspnea, hemoptysis, or wheeze. No chest pain. No dysphagia, dyspepsia, early satiety or abdominal pain. No jaundice. No change in bowel habits, rectal bleeding melena or hematochezia. No diarrhea or constipation. No change in color of urine or stool. No bleeding no hematuria. No dysuria, incontinence, nocturia. No muscle or joint aches or pains. No recent trauma or injury. No joint swelling or deformity. No rashes or skin lesions. No excessive sun exposure. No change in hair or nails. No trauma,. No headache. No special sensory loss. No weakness or numbness. No change in care coordination. No loss consciousness. No seizures. No suicidality. No auditoryvisual hallucinations. No history of diabetes or thyroid disease. No history of bleeding or bruising or hemorrhage. No allergy rhinitis or asthma. No other complaints offered. Physical Exam Morbidly obese The head is atraumatic and normocephalic. Pupils are equal round and react to light and accommodation. Extraocular movements intact. Sclera white. Conjunctiva pink. Ears nose and throat clear mouth is moist. Neck is supple prep showed normal no adenopathy or thyromegaly. Chest clear to percussion auscultation. Heart S1-S2 regular no clear murmur gallop or rub. Abdomen flat soft nontender no mass. CVA negative, No clubbing cyanosis edema or rash. Alert oriented without focal neurolical abnormality. Assessment/Plan Diagnoses and all orders for this visit: 1. Adenomatous polyp of colon, unspecified part of colon (Primary) 2. Idiopathic osteoporosis with pathological fracture 3. Sarcoidosis (CMS/HCC) 4. Mixed hyperlipidemia 5. Type 2 diabetes mellitus with stage 3 chronic kidney disease, with long-term current use of insulin ([facility]) 6. Essential hypertension 7. Insomnia due to anxiety and fear 8. Situational anxiety Other orders - MAMMOGRAPHY - COLONOSCOPY - DIABETES EYE EXAM - DEXA SCAN - traZODone (DESYREL) 50 mg tablet; Take 1 tablet (50 mg total) by mouth nightly as needed for sleep. - Pneumococcal polysaccharide vaccine 23-valent greater than or equal to 2yo subcutaneous/IM Colonoscopy due in 2 years Sarcoidosis quiescent Dyslipidemia controlled diabetes improved not yet a goal Hypertension controlledinsomnia and situational anxiety secondary to 's illness Meds in interim labs reviewed. Polypharmacy without evidence of adverse effects. Complex multiple diagnosis and medication regimen coordinated. Medical decision making complex. I discussed with the patient the indication for the diagnostic testing recommended and the patient confirmed understandingand requested that were proceed in this fashion. The patient was given an opportunity to ask all questions have all questions answered. The patient was advised to follow up with other loss control consultant healthcare personnel as recommended. Please refer to the EHR for further management and patient directions.The patient offered no further complaints. The patient was instructed to call back if there are any signs or symptoms of concern to them. The patient was instructed to call back in 3 days for test results. They were given the option to review the test results online. Further directions as indicated.The patient's elevated BMI was dressed. Recommended healthy eating and increase exercise as appropriate to the patient's medical condition abilities anticipating weight loss and improved BMI. Follow-up 3 months documented in this encounter Plan of Treatment Scheduled Orders Name Type Priority Associated Diagnoses Orde r Schedule Lipid panel with direct LDL Lab Routine Type 2 diabetes mellitus with stage 3 chronic kidney disease, with long-term current use of insulin ([facility]) Expected: 03/29/2017, Expires: 12/27/2025 UA with Culture Reflex Lab Routine Type 2 diabetes mellitus with stage 3 chronic kidney disease, with long-term current use of insulin ([facility]) Expected: 03/29/2017, Expires: 12/27/2025 documented as of this encounter Procedures Procedure Name Priority Date/Time Associated Diagnosis Comments MAMMOGRAPHY Routine 07/10/2016 DEXA SCAN Routine 05/15/2015 DIABETES EYE EXAM Routine 10/15/2014 COLONOSCOPY Routine 09/15/2013 documented in this encounter Results * MAMMOGRAPHY (07/10/2016) Mammogram Normal Anatomical Region Laterality Modality Other us Historical Provider HEALTH MAINTENANCE Final Result * DEXA SCAN (05/15/2015) Pathologist [facility] DEXA Scan Unknown Anatomical Region Laterality Modality Other Result [facility] HEALTH MAINTENANCE Final Result * DIABETES EYE EXAM (10/15/2014) Pathologist [facility] Diabetic Eye Exam Unknown Result [facility] HEALTH MAINTENANCE Final Result * COLONOSCOPY (09/15/2013) Pathologist [facility] Colonoscopy Unknown Anatomical Region Laterality Modality Other [facility] HEALTH MAINTENANCE Final Result documented in this encounter Visit Diagnoses Diagnosis Adenomatous polyp of colon, unspecified part of colon- Primary Idiopathic osteoporosis with pathological fracture Sarcoidosis Mixed hyperlipidemia Type 2 diabetes mellitus with stage 3 chronic kidney disease, with long-term current use of insulin (HCC) Essential hypertension Unspecified essential hypertension Insomnia due to anxiety and fear Situational anxiety documented in this encounter Discontinued Medications Medication Sig Discontinue Reason Start Date End Da te simvastatin (ZOCOR) 40 mg tablet take 1/2 Tablet by ORAL route every day in the evening Duplicate order 06/28/2010 12/27/2016 montelukast (SINGULAIR) 10 mg tablet take 1 tablet by oral route every day in the evening Duplicate order 07/21/2015 12/27/2016 metFORMIN (GLUCOPHAGE) 500 mg tablet TAKE TWO TABLETS BY MOUTH TWICE A DAY Duplicate order 06/24/2014 12/27/2016 insulin lispro (HumaLOG KwikPen) 100 unit/mL insulin pen INJECT UP TO 30 UNITS SUBCUTANEOUSLY THREE TIMES A DAY BEFORE MEALS Duplicate order 04/01/2012 12/27/2016 gabapentin (NEURONTIN) 300 mg capsule take 1 capsule (300MG) by ORAL route 3 times every day Duplicate order 07/02/2012 12/27/2016 irbesartan-hydroCHLO ROthiazide (AVALIDE) 300-12.5 mg per tablet TAKE ONE TABLET BY MOUTH ONCE DAILY Duplicate order 08/18/2013 12/27/[address] (PROTONIX) 40 mg EC tablet TAKE ONE TABLET BY MOUTH TWICE A DAY Duplicate order 09/07/2014 12/27/[address] (PROTONIX) 40 mg EC tablet TAKE ONE TABLET BY MOUTH TWICE A DAY Duplicate order 09/07/2014 12/27/2016 zoledronic qebj-eccmhwct-xtnzs (RECLAST) 5 mg/100 mL piggyback tud Duplicate order 08/14/2015 12/27/2016 insulin detemir (LEVEMIR) 100 unit/mL injection inject by subcutaneous route per prescriber's instructions. Insulin dosing requires individualization. 07/21/2015 12/27/2016 insulin glargine (TOUJEO SOLOSTAR) 300 unit/mL (1.5 mL) insulin pen 90 units sc daily 08/14/2015 12/27/2016 varicella zoster (ZOSTAVAX, PF,) 19,400 unit/0.65 mL injection administer one 07/18/2016 12/27/2016 ascorbic acid, vitamin C, (VITAMIN C) 500 mg capsule, extended release CR capsule Take one capsule PO once daily 02/01/2016 12/27/2016 acetaminophen-codein e (TYLENOL-CODEINE #3) 300-30 mg per tablet take 1 tablet by oral route every 6 - 8 hours as needed 09/01/2015 12/27/2016 fluticasone (FLOVENT DISKUS) 50 mcg/actuation diskus inhaler inhale 1 puff by inhalation route 2 times every day 07/21/2015 12/27/2016 documented as of this encounter Historical Medications * This list may reflect changes made after this encounter. aspirin-acetamin ophen-caffeine (EXCEDRIN MIGRAINE) 250-250-65 mg per tablet Take 1 tablet by mouth every 6 (six) hours as needed. 2 biotin 10,000 mcg capsule Take by mouth. 9 fluticasone-derek nterol (BREO ELLIPTA) 100-25 mcg/dose diskus inhaler Inhale 1 puff daily. Rinse mouth with water after use to reduce aftertaste and incidence of candidiasis. Do not swallow. 9 albuterol HFA (PROVENTIL HFA,VENTOLIN HFA) 90 mcg/actuation inhaler Inhale 2 puffs every 6 (six) hours as needed for wheezing. 3 added in this encounter Orders Immunization/Injection Count Last Ordered Date First Ordered Date PNEUMOCOCCAL POLYSACCHARIDE VACCINE 23-VALENT =>2YO SQ IM 1 12/27/2016 documented in this encounter Care Teams Structures Engineer Relationship Specialty Start Date End Date Clayton Sandoval MD [address] [place] [id number] PCP - General 10/11/16 08/02/19 documented as of this encounter
--- OUTSIDE RECORDS SUMMARY | 2024-07-11 22:41 | XMS_ITS | Encounter Summary ---
Author Organization [facility] Address [address] [place] [address] Care Team Providers Care Technical Sales Consultant Name Role Phone Clayton Sandoval MD Primary Care Provider + Encounter Details Date Type Department Care Team (Late st Contact Info) Description 03/20/2017 11:00 AM CDT Lab [facility] [address] [place] [id number] Essential hypertension Social History Tobacco Use Types Packs/Day Years Used Date Smoking Tobacco: Never Alcohol Use Standard Drinks/Week Comments Yes 0 (1 standard drink = 0.6 oz pur e alcohol) Comments Unknown Sex and Gender Information Value Date Recorded Sex Assigned at Not on file 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
--- OUTSIDE RECORDS SUMMARY | 2024-07-11 22:41 | XMS_ITS | Encounter Summary ---
Author Organization [facility] Address [address] [place] [address] Care Team Providers Care Radio Board Operator Announcer Name Role Phone Clayton Sandoval MD Primary Care Provider + Reason for Visit * Reason Comments EEE ppw Encounter Details Date Type Department Care Team (Late st Contact Info) Description 06/11/2017 2:00 PM WARP PLACER Office Visit [facility] [address] [facility] [address] [place] [phone] Augustine Roberts PA [address] [place] [address] [address] [place] [address] Type 2 diabetes mellitus with stage 3 chronic kidney disease, with long-term current use of insulin (CMS/HCC) (Primary Dx); Stage 3 chronic kidney disease; Hyperlipidemia, unspecified hyperlipidemia type; Type 2 diabetes mellitus with diabetic autonomic neuropathy, with long-term current use of insulin (CMS/HCC); Idiopathic osteoporosis with pathological fracture; BMI 38.0-38.9,adult; Sarcoidosis (CMS/HCC); Health examination of defined subpopulation Social History Tobacco Use Types Packs/Day Years Used Date Smoking Tobacco: Never Smokeless Tobacco: Never Alcohol Use Standard Drinks/Week Comments Yes 0 (1 standard drink = 0.6 oz pur e alcohol) Comments Unknown Sex and Gender Information Value Date Recorded Sex Assigned at Not on file 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 Gender Identity Not on file Sexual Orientation Not on file documented as of this encounter Last Filed Vital Signs Vital Sign Reading Time Taken Comments Blood Pressure 130/80 06/11/2017 2:05 PM WARP PLACER Pulse 74 06/11/2017 2:05 PM WARP PLACER Temperature 37.1 ??C (98.8 ??F) 06/11/2017 2:05 PM CS T Respiratory Rate 20 06/11/2017 2:05 PM WARP PLACER Oxygen Saturation - - Inhaled Oxygen Concentration - - Weight 105.8 kg (233 lb 4.8 oz) 06/11/2017 2:05 PM WARP PLACER Height 167.6 cm (5' 6 ) 06/11/2017 2:05 PM WARP PLACER Body Mass Index 37.66 06/11/2017 2:05 PM WARP PLACER documented in this encounter Progress Notes * Augustine Roberts PA - 06/11/2017 2:00 PM CST Subjective/Objective Patient ID: Criss Ly is a 67 y.o. female. Chief Complaint EEE ppw HPI This pt of CG comes in for EEE. She recently lost her husb in March and has been bereaving his loss. Allergies Allergen Reactions ??? Acetaminophen Other (See comments) Reaction: migraines, , Reaction: migraines, ??? Hydrocodone Other (See comments) Reaction: migraines, , , Current Outpatient Prescriptions: ??? amLODIPine (NORVASC) 10 mg tablet, Take 0.5 tablets (5 mg total) by mouth daily., Disp: 45 tablet, Rfl: 3 ??? amoxicillin (AMOXIL) 500 mg tablet/capsule, Take 4 tablets 1 hour before procedure, Disp: 4 tablet/capsule, Rfl: 5 ??? blood glucose diagnostic (CONTOUR NEXT STRIPS) strip, USE ONE STRIP IN METER THREE TIMES A DAY,Disp: 300 strip, Rfl: 3 ??? blood glucose diagnostic (CONTOUR NEXT STRIPS) strip, USE ONE STRIP IN METER THREE TIMES A DAY,Disp: 300 strip, Rfl: 11 ??? blood-glucose meter (CONTOUR NEXT USB METER) [facility], test as directed, Disp: 1 each, Rfl: 0 ??? calcium carbonate-vitamin D3 500 mg(1,250mg) -400 unit tablet, Take one by mouth two times per day, Disp: 0, Rfl: 0 ??? fluticasone (FLONASE) 50 mcg/actuation nasal spray, inhale 2 spray by Intranasal route every day in each nostril, Disp: , Rfl: 0 ??? gabapentin (NEURONTIN) 300 mg capsule, take 2 Capsule by oral route every day, Disp: 0, Rfl: 0 ??? insulin glargine (LANTUS) 100 unit/mL (3 mL) insulin pen, Inject 0.44 mL (44 Units total) underthe skin daily., Disp: 5 pen, Rfl: 3 ??? insulin lispro (HumaLOG KwikPen) 100 unit/mL insulin pen, Inject 0.3 mL (30 Units total) under the skin 3 (three) times a day with meals., Disp: 81 mL, Rfl: 3 ??? irbesartan-hydroCHLOROthiazide (AVALIDE) 300-12.5 mg per tablet, TAKE ONE TABLET BY MOUTH ONCE DAILY, Disp: 90, Rfl: 3 ??? lancets (MICROLET LANCET) misc, test by fingerstick route 3 times daily, Disp: 300 each, Rfl: 3 ??? metFORMIN (GLUCOPHAGE) 500 mg tablet, TAKE TWO TABLETS BY MOUTH TWICE A DAY, Disp: 120, Rfl: 11 ??? montelukast (SINGULAIR) 10 mg tablet, take 1 tablet (10MG) by ORAL route every day in the evening, Disp: , Rfl: 0 ??? pantoprazole DR (PROTONIX) 40 mg EC tablet, TAKE ONE TABLET BY MOUTH TWICE A DAY, Disp: 90, Rfl: 3 ??? pen needle, diabetic (BD INSULIN PEN NEEDLE UF MINI) 31 gauge x 3/16 needle, 1 needle as directed, Disp: 300 each, Rfl: 3 ??? simvastatin (ZOCOR) 40 mg tablet, Take 1 tablet (40 mg total) by mouth nightly., Disp: 30 tablet, Rfl: 11 ??? traMADol (ULTRAM) 50 mg tablet, take 1 tablet by ORAL route every 6 hours as needed, Disp: 60, Rfl: 2 ??? zoledronic edxk-gmqvgksq-hmeau (RECLAST) 5 mg/100 mL piggyback, tud, Disp: 1 Syringe, Rfl: 0 ??? albuterol HFA (PROVENTIL HFA,VENTOLIN HFA) 90 mcg/actuation inhaler, Inhale 2 puffs every 6 (six) hours as needed for wheezing., Disp: , Rfl: ??? nbcctqp-khuyinifzuxqk-nvzsaeyy (EXCEDRIN MIGRAINE) 250-250-65 mg per tablet, Take 1 tablet by mouth every 6 (six) hours as needed., Disp: , Rfl: ??? biotin 10,000 mcg capsule, Take by mouth., Disp: , Rfl: ??? fluticasone-vilanterol (BREO ELLIPTA) 100-25 mcg/dose diskus inhaler, Inhale 1 puff daily. Rinse mouth with water after use to reduce aftertaste and incidence of candidiasis. Do not swallow., Disp: , Rfl: Past Medical History: Diagnosis Date ??? Benign hypertension with CKD (chronic kidney disease) stage III ??? Gastroesophageal reflux disease GERD ??? HX OTHER MEDICAL PMO ??? 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 HX OTHER MEDICAL [facility] OA ??? [...] HX OTHER MEDICAL Breast reduction 2009.; Comments: [facility] 07/25/2015 - ??? HX OTHER MEDICAL left hip and leg surgery ??? HX OTHER MEDICAL conversion of previous hip arthroplasty left hip; Comments: [facility] TCU unit 02/06 - 02/17/16 for rehabilitation. ??? Hyperlipidemia Hyperlipidemia ??? Hypertension Hypertension ??? Osteoarthritis Osteoarthritis ??? Polyp of colon colon polyps ??? Sarcoidosis (CMS/HCC) Sarcoidosis ??? Type 2 diabetes mellitus (CMS/HCC) Diabetes type 2 ??? Type 2 diabetes mellitus with diabetic autonomic (poly)neuropathy ??? Type 2 diabetes mellitus with hyperglycemia (CMS/HCC) ??? Type II diabetes mellitus with stage 3 chronic kidney disease (CMS/HCC) Past Surgical History: Procedure Laterality Date ??? KNEE ARTHROPLASTY Knee replacement ??? LUMBAR SPINE SURGERY Surgery, lumbar spine ??? OTHER SURGICAL HISTORY 2004 L TKA ??? OTHER SURGICAL HISTORY 2001 R TKA ??? OTHER SURGICAL HISTORY 2007 back surgery - microdecompression Lumbar ??? OTHER SURGICAL HISTORY Fall: Medical Management ??? OTHER SURGICAL HISTORY 2016 conversion of previous hip arthroplasty left hip: Conversion of Arthroplasty left hip ??? TONSILLECTOMY tonsillectomy Family History Problem Relation Age of Onset ??? Heart disease Father Heart disease; ??? Heart failure Father CHF; Cause of : CHF ??? Diabetes Mother Diabetes mellitus; ??? Hypertension Mother Hypertension; ??? Diabetes Brother Diabetes mellitus; ??? Lymphoma Brother Cancer -lymphoma; Social History Social History ??? Marital status: Spouse name: N/A ??? Number of children: N/A ??? Years of education: N/A Occupational History ??? Not on file. Social History Main Topics ??? Smoking status: Never Smoker ??? Smokeless tobacco: Never Used ??? Alcohol use Yes ??? Drug use: Unknown ??? Sexual activity: Not on file Other Topics Concern ??? Not on file Social History Narrative ??? No narrative on file Review of Systems Constitutional: Negative for appetite change, chills, fatigue, fever and unexpected weight change. HENT: Negative for rhinorrhea, sore throat and trouble swallowing. No odynophagia, dysphagia Eyes: Negative for visual disturbance. Respiratory: Negative for cough, chest tightness, shortness of breath (no current c/o) and wheezing. Cardiovascular: Negative for chest pain, palpitations and leg swelling. Gastrointestinal: Positive for nausea (from her pain pills, on occ). Negative for abdominal pain, blood in stool, constipation, diarrhea and vomiting. Genitourinary: Negative for difficulty urinating, dysuria, hematuria and urgency. Musculoskeletal: Positive for arthralgias (chronic). Negative for back pain, gait problem (uses cane), joint swelling, myalgias and neck stiffness. Skin: Negative for rash. Neurological: Negative for dizziness, syncope, weakness, light-headedness and headaches. Psychiatric/Behavioral: Negative for agitation. The patient is not nervous/anxious (bereavement). Vitals: 06/11/17 1405 BP: 130/80 BP Location: Left arm Patient Position: Sitting Pulse: 74 Resp: 20 Temp: 37.1 ??C (98.8 ??F) TempSrc: Oral Weight: 105.8 kg (233 lb 4.8 oz) Height: 167.6 cm (5' 6 ) Physical Exam Constitutional: She appears well-developed and well-nourished. No distress (obese pleasant NAD). Cardiovascular: Normal rate, regular rhythm and normal heart sounds. Gallop: no edema. No murmur heard. Pulmonary/Chest: Effort normal and breath sounds normal. No respiratory distress. She has no wheezes. She has no rales. Neurological: Cranial nerve deficit: cane in L hand. Assessment/Plan Diagnoses and all orders for this visit: Type 2 diabetes mellitus with stage 3 chronic kidney disease, with long-term current use of insulin(CMS/HCC) (Primary) The patient was counseled on a heart-healthy, diabetic-friendly diet, as well as life-style modification. Education provided on the diagnosis and risks of the disease. We will continue to monitor routine labs. Additionally, the patient was counseled on routine diabetic eye exams, foot exams, and other preventive care. Stage 3 chronic kidney disease Comments: Last creatninine 1.59. Being followed Hyperlipidemia, unspecified hyperlipidemia type Comments: At goal, compliant w/ statin Type 2 diabetes mellitus with diabetic autonomic neuropathy, with long-term current use of insulin (CMS/HCC) Comments: Follows with Dr. Newberry, podiatry Idiopathic osteoporosis with pathological fracture Comments: Reclast received BMI 38.0-38.9,adult Sarcoidosis (CMS/HCC) Comments: Diagnosed in the 90s and no recent complaints. Follows with Dr. Pierre, pulmonology again in October, yearly 07/10 to see Cg. 07/[address] Evans, colorist formulator Sees Gabby, pulmonology, yearly, next in October Side effects, risks, interactions reviewed with patient. Indications for testing discussed. Any further problems to contact us. She was told what to look out for and verbalized understanding. The patient was given the opportunity to have all questions answered today and was in agreement with the plan of care. Essence form filled out accordingly Cosigned by David Soto MD at 06/11/2017 6:33 PM WARP PLACER PLACER PLACER documented in this encounter Plan of Treatment Not on file documented as of this encounter Visit Diagnoses Diagnosis Type 2 diabetes mellitus with stage 3 chronic kidney disease, with long-term current use of insulin (HCC)- Primary Stage 3 chronic kidney disease (HCC) Hyperlipidemia, unspecified hyperlipidemia type Type 2 diabetes mellitus with diabetic autonomic neuropathy, with long-term current use of insulin (HCC) Idiopathic osteoporosis with pathological fracture BMI 38.0-38.9,adult Sarcoidosis Health examination of defined subpopulation documented in this encounter Care Teams Radio Board Operator Announcer Relationship Specialty Start Date End Date Clayton Sandoval MD [address] [place] [address] PCP - General 10/11/16 08/02/19 documented as of this encounter
--- OUTSIDE RECORDS SUMMARY | 2024-07-11 22:41 | XMS_ITS | Encounter Summary ---
Author Organization [facility] Address [address] [place] [address] Care Team Providers Care Mine Production Engineer Name Role Phone Clayton Sandoval MD Primary Care Provider + Encounter Details Date Type Department Care Team (Late st Contact Info) Description 01/16/2017 Orders Only [facility] [address] [facility] [address] [place] [phone] Clayton Sandoval MD [address] [place] [address] Social History Tobacco Use Types Packs/Day Years Used Date Smoking Tobacco: Never Alcohol Use Standard Drinks/Week Comments Yes 0 (1 standard drink = 0.6 oz pur e alcohol) Comments Unknown Sex and Gender Information Value Date Recorded Sex Assigned at Not on file 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 30 tablet 11 01/16/2017 01/16/2018 documented in this encounter Plan of Treatment Not on file documented as of this encounter Visit Diagnoses Not on filedocumented in this encounter Care Teams Mine Production Engineer Relationship Specialty Start Date End Date Clayton Sandoval MD [address] [place] [address] PCP - General 10/11/16 08/02/19 documented as of this encounter
--- OUTSIDE RECORDS SUMMARY | 2024-07-11 22:41 | XMS_ITS | Encounter Summary ---
Author Organization [facility] Medical Group Address [address] [place] [address] Care Team Providers Care Chief Operating Engineer Name Role Phone Clayton Sandoval MD Primary Care Provider + Encounter Details Date Type Department Care Team (Late st Contact Info) Description 07/17/2018 Transcribe Orders [facility] Medical [facility] Gastroenterology at [address] [place] [phone] Clayton Sandoval MD [facility] [address] History of colon polyps (Primary Dx) Social History Tobacco Use Types Packs/Day Years Used Date Smoking Tobacco: Never Smokeless Tobacco: Never Alcohol Use Standard Drinks/Week Comments Yes 0 (1 standard drink = 0.6 oz pur e alcohol) Comments No Sex and Gender Information Value Date Recorded Sex Assigned at Not on file 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
--- OUTSIDE RECORDS SUMMARY | 2024-07-11 22:41 | XMS_ITS | Encounter Summary ---
Author Organization [facility] Healthcare Address [address] [place] [address] Care Team Providers Care Temporary Data Entry Clerk Name Role Phone Clayton Sandoval MD Primary Care Provider + Encounter Details Date Type Department Care Team (Late st Contact Info) Description 03/20/2017 4:00 PM CDT Lab [address] [id number] Type 2 diabetes mellitus with complication, unspecified assisted insulin use status; Mixed hyperlipidemia Social History Tobacco Use Types Packs/Day Years Used Date Smoking Tobacco: Never Alcohol Use Standard Drinks/Week Comments Yes 0 (1 standard drink = 0.6 oz pur e alcohol) Comments Unknown Sex and Gender Information Value Date Recorded Sex Assigned at Not on file 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 Gender Identity Not on file Sexual Orientation Not on file documented as of this encounter Plan of Treatment Not on file documented as of this encounter Procedures Procedure Name Priority Date/Time Associated Diagnosis Comments LIPID PANEL WITH REFLEX TO DIRECT LDL Routine 03/20/2017 11:06 AM CDT Mixed hyperlipidemia URINALYSIS AND REFLEX TO MICROSCOPIC AND CULTURE Routine 03/20/2017 11:06 AM CDT Mixed hyperlipidemia ALBUMIN, RANDOM URINE WITHOUT CREATININE Routine 03/20/2017 11:06 AM CDT Type 2 diabetes mellitus with complication, unspecified assisted insulin use status HEMOGLOBIN A1C Routine 03/20/2017 11:06 AM CDT Type 2 diabetes mellitus with complication, unspecified assisted insulin use status documented in this encounter Results * (ABNORMAL) Urinalysis reflex to microscopic and culture (03/20/2017 11:06 AM CDT) Color, ur Yellow [facility] Clarity, ur Clear [facility] Specific gravity, ur 1.011 1.001 - 1.033 [facility] pH, ur 6.0 5.0 - 8.0 [facility] Protein, ur ql Negative Negative [facility] Glucose, ur ql Negative Negative [facility] Ketones, ur Negative Negative [facility] Bilirubin, ur Negative Negative [facility] Blood, ur Negative Negative [facility] Urobilinogen, ur <2.0 <2.0 [facility] Nitrites, ur Negative Negative [facility] Leukocyte esterase, ur 1+(A) Negative [facility] Urine 03/20/2017 11:0 6 AM CDT 03/20/2017 4:03 PM CDT us Clayton Sandoval MD LAB MICROBIOLOGY - GENER AL ORDERABLES Final Result [facility] [address] [place] [address] * (ABNORMAL) Lipid panel with reflex to direct LDL (03/20/2017 11:06 AM CDT) Cholesterol 123 100 - 200 mg/dL [facility] Comment: Interpretive Data Desirable: ?<200 mg/dL Borderline high: ??200-239 mg/dL High: ? >240 mg/dL Current interpretive data was last revised on 2016. Triglycerides 111 10 - 150 mg/dL [facility] Comment: Interpretive Data Desirable: ? < 150 ? mg/dL Borderline High: ? 150 - 199 mg/dL High: ?200 - 499 mg/dL Very High: ? > or = 499 ??mg/dL Current interpretive data was last revised on 2016. HDL 44 40 - 59 mg/dL ANN Comment: Interpretive Data Less than 40 mg/dL - Low; A major risk factor for heart disease. Greater than or equal to 60 mg/dL - High; ??Considered protective of heart disease. Current interpretive data was last revised on 2016. LDL, calculated 57(L) 60 - 129 mg/dL ANN Comment: Interpretive Data Optimal: ? < 100 mg/dL Near Optimal: ?100 - 129 mg/dL Borderline High: ?? 130 - 159 mg/dL High: ?> 160 mg/dL Current interpretive data was last revised on 2016. Chol/HDL ratio 3 mg/dL ANN Blood specimen (specimen) 03/20/2017 11:06 AM CDT 03/20/2017 4:03 PM CDT Clayton Sandoval MD LAB BLOOD ORDERABLES Fin al Result [facility] [address] Department [place] [address] * (ABNORMAL) Hemoglobin A1c (03/20/2017 11:06 AM CDT) Hgb A1C 7.4(H) 4.0 - 6.0 % ANN Comment: Interpretive Data Hemoglobin A1c ADA Interpretive Guidelines ??<7% ?? Glycemia controlled ??>8% ?? Hyperglycemia, additional action recommended Cinthia Immunochemical Method Current interpretive data was last revised on 2015 [facility] [address] [place] [address] Estimated Average Glucose 166 mg/dL ANN Comment:Testing performed by : [facility] [address] [place] [address] Blood specimen (specimen) 03/20/2017 11:06 AM CDT 03/20/2017 7:25 PM CDT Clayton Sandoval MD LAB BLOOD ORDERABLES Fin al Result Performing Organization Address [facility] [[email or web address]] Co de Phone Number ANN MENDES [phone] [place] [address] * (ABNORMAL) Microalbumin, urine, random (03/20/2017 11:06 AM CDT) Microalbumin, ur 72.0(H) 0.0 - 29.9 mcg/mL [facility] Creatinine, ur 58.20 mg/dL [facility] Microalbumin/crea t ratio 123.7(H) 0.0 - 29.9 mcg/mg Cr [facility] Comment: Interpretive Data Normal: ?< 30 mcg/mg Microalbuminuria: ?30 - 300 mcg/mg Clinical Albuminuria: ? 300 mcg/mg Current interpretive data was last reviewed 2015 Urine 03/20/2017 11:0 6 AM CDT 03/20/2017 4:03 PM CDT Clayton Sandoval MD LAB URINE ORDERABLES Fin al Result Performing Organization Address [facility] de Phone Number ANN MENDES [phone] [place] [address] documented in this encounter Visit Diagnoses Diagnosis Type 2 diabetes mellitus with complication, unspecified assisted insulin use status Mixed hyperlipidemia documented in this encounter Care Teams Temporary Data Entry Clerk Relationship Specialty Start Date End Date Clayton Sandoval MD [address] [place] [address] PCP - General 10/11/16 08/02/19 documented as of this encounter
--- OUTSIDE RECORDS SUMMARY | 2024-07-11 22:41 | XMS_ITS | Encounter Summary ---
Author Organization [facility] Healthcare Address [address] [place] [address] Care Team Providers Care Supervisor Major Appliance Assembly Name Role Phone Clayton Sandoval MD Primary Care Provider + Encounter Details Date Type Department Care Team (Late st Contact Info) Description 11/04/2017 2:15 PM CDT - 11/04/2017 11:59 PM CDT Hospital Encounter [facility] [address] [place] [id number] Clayton Sandoval MD [facility] [facility] [address] [place] [address] Screening breast examination Discharge Disposition: Discharge to home or self care Social History Tobacco Use Types Packs/Day Years Used Date Smoking Tobacco: Never Smokeless Tobacco: Never Alcohol Use Standard Drinks/Week Comments Yes 0 (1 standard drink = 0.6 oz pur e alcohol) Comments No Sex and Gender Information Value Date Recorded Sex Assigned at Not on file 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 Gender Identity Not on file Sexual Orientation Not on file documented as of this encounter Last Filed Vital Signs Vital Sign Reading Time Taken Comments Blood Pressure - - Pulse - - Temperature - - Respiratory Rate - - Oxygen Saturation - - Inhaled Oxygen Concentration - - Weight 104.3 kg (230 lb) 11/04/2017 2:44 PM CDT Height 167.6 cm (5' 6 ) 11/04/2017 2:44 PM CDT Body Mass Index 37.12 11/04/2017 2:44 PM CDT documented in this encounter Medications at [...] as needed 60 2 06/21/2013 [address] hzrt-oleslwqy-ni ter (RECLAST) 5 mg/100 mL piggyback tud [...] CEDRIC Schedule Routine, Read Routine (OP Routine) 11/04/2017 2:49 PM CDT Screening breast examination documented in this encounter Results * Screening Mammogram Bilateral W Cedric (11/04/2017 2:49 PM CDT) Anatomical Region Laterality Modality Breast Bilateral Mammography Impressions 11/04/2017 2:55 PM CDT 1. ??BENIGN FINDINGS. 2. ??ANNUAL FOLLOW-UP RECOMMENDED. BI-RADS 2 Electronically signed by: Ayaan Garner 11/04/2017 2:55 PM CDT SCREENING MAMMOGRAM BILATERAL W CEDRIC HISTORY: Encounter for screening mammogram for malignant neoplasm of breast. Prior bilateral breast reduction. TECHNIQUE: 2 views of each breast were obtained with bilateral breast tomosynthesis. COMPARISON: 07/02/2016. FINDINGS: The breasts are heterogeneously dense. No suspicious mass or calcification is seen to suggest mammographic evidence of malignancy. ??Dystrophic calcifications fat necrosis and oil cysts are once again noted.. ??Chronic parenchymal changes. ??Benign calcifications bilaterally. Digital technology was employed plus computer aided detection software (R2) was utilized in interpretation of these images. ??This facility utilizes a reminder system to notify patient's of yearly mammograms. Clayton Sandoval MD IMG MAMMO PROCEDURES Fin al Result documented in this encounter Visit Diagnoses Diagnosis Screening breast examination Other screening breast examination documented in this encounter Care Teams Supervisor Major Appliance Assembly Relationship Specialty Start Date End Date Clayton Sandoval MD [address] [facility] [place] [address] PCP - General 10/11/16 08/02/19 documented as of this encounter
--- OUTSIDE RECORDS SUMMARY | 2024-07-11 22:41 | XMS_ITS | Encounter Summary ---
Author Organization [facility] Medical Group Address [address] [place] [address] Care Team Providers Care Rack Room Worker Name Role Phone Clayton Sandoval MD Primary Care Provider + Encounter Details Date Type Department Care Team (Late st Contact Info) Description 04/02/2017 Telephone [facility] [address] [place] [address] Clayton Sandoval MD [address] [place] [address] Social History Tobacco Use Types Packs/Day Years Used Date Smoking Tobacco: Never Alcohol Use Standard Drinks/Week Comments Yes 0 (1 standard drink = 0.6 oz pur e alcohol) Comments Unknown Sex and Gender Information Value Date Recorded Sex Assigned at Not on file 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 * Telephone Encounter - Clayton Sandoval MD - 04/02/2017 10:22 AM CDT Amoxicillin 2 g p.o. 1 hour before procedure refill x5 * Telephone Encounter - Esperanza Leon MA - 04/02/2017 9:15 AM CDT Please advise. * Telephone Encounter - Ludmila Chen - 04/02/2017 9:01 AM CDT Pt states she has a dental appointment 04/03. She is requesting an antibiotic because she has had 2knee replacements and a hip replacement. meera benz. Please advise [phone] ok to leave message. documented in this encounter Plan of Treatment Not on file documented as of this encounter Visit Diagnoses Not on filedocumented in this encounter Care Teams Rack Room Worker Relationship Specialty Start Date End Date Clayton Sandoval MD [address] [place] [address] PCP - General 10/11/16 08/02/19 documented as of this encounter
--- OUTSIDE RECORDS SUMMARY | 2024-07-11 22:41 | XMS_ITS | Encounter Summary ---
Author Organization [facility] Healthcare Address [address] [place] [address] Care Team Providers Care Tubing Drier Name Role Phone Clayton Sandoval MD Primary Care Provider + Encounter Details Date Type Department Care Team (Late st Contact Info) Description 12/13/2016 2:33 PM CDT - 12/13/2016 11:59 PM CDT Hospital Encounter [facility] Clayton Sandoval MD [address] [place] [address] Discharge Disposition: Discharge to home or self care Social History Tobacco Use Types Packs/Day Years Used Date Smoking Tobacco: Never Alcohol Use Standard Drinks/Week Comments Yes 0 (1 standard drink = 0.6 oz pur e alcohol) Comments Unknown Sex and Gender Information Value Date Recorded Sex Assigned at Not on file 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 Gender Identity Not on file Sexual Orientation Not on file documented as of this encounter Medications at Time of Discharge blood-glucose meter (CONTOUR NEXT USB METER) misc test as directed 1 each 0 07/04/2014 lancets (MICROLET LANCET) misc test by fingerstick route 3 times daily 300 each 3 07/26/2015 acetaminophen-c odeine (TYLENOL-CODEIN E #3) 300-30 mg per tablet take 1 tablet by oral route every 6 - 8 hours as needed 40 0 09/01/2015 7 amLODIPine (NORVASC) 10 mg tablet TAKE ONE TABLET BY MOUTH ONCE DAILY 30 11 07/18/2016 7 ascorbic acid, vitamin C, (VITAMIN C) 500 mg capsule, extended release CR capsule Take one capsule PO once daily 30 0 02/01/2016 7 blood glucose diagnostic (CONTOUR NEXT STRIPS) strip [...] day in each nostril 0 05/26/2012 0 fluticasone (FLOVENT DISKUS) 50 mcg/actuation diskus inhaler inhale 1 puff by inhalation route 2 times every day 0 0 07/21/2015 7 gabapentin (NEURONTIN) 300 mg capsule take 1 capsule (300MG) by ORAL route 3 times every day 0 07/02/2012 7 gabapentin (NEURONTIN) 300 mg capsule take 2 Capsule by oral route every day 0 0 07/21/2015 1 glimepiride (AMARYL) 4 mg tablet TAKE ONE TABLET BY MOUTH ONCE DAILY 90 2 07/04/2014 7 insulin detemir (LEVEMIR) 100 unit/mL injection inject by subcutaneous route per prescriber's instructions. Insulin dosing requires individualization. 0 vial 0 07/21/2015 7 insulin glargine (LANTUS SOLOSTAR) 100 unit/mL (3 mL) insulin pen INJECT 48 UNITS SUBCUTANEOUSLY DAILY 15 Syringe 3 11/01/2015 7 insulin glargine (TOUJEO SOLOSTAR) 300 unit/mL (1.5 mL) insulin pen 90 units sc daily 5 3 08/14/2015 7 insulin lispro (HumaLOG KwikPen) 100 unit/mL insulin pen 30U with meals 30 Syringe 11 04/01/2012 7 insulin lispro (HumaLOG KwikPen) 100 unit/mL insulin pen INJECT UP TO 30 UNITS SUBCUTANEOUSLY THREE TIMES A DAY BEFORE MEALS 30 Syringe 11 04/01/2012 7 irbesartan-hydr oCHLOROthiazide (AVALIDE) 300-12.5 mg per tablet TAKE ONE TABLET BY MOUTH ONCE DAILY 90 3 08/18/2013 0 irbesartan-hydr oCHLOROthiazide (AVALIDE) 300-12.5 mg per tablet TAKE ONE TABLET BY MOUTH ONCE DAILY 90 3 08/18/2013 7 metFORMIN (GLUCOPHAGE) 500 mg tablet TAKE TWO TABLETS BY MOUTH TWICE A DAY 120 11 06/24/2014 0 metFORMIN (GLUCOPHAGE) 500 mg tablet TAKE TWO TABLETS BY MOUTH TWICE A DAY 120 11 06/24/2014 7 montelukast (SINGULAIR) 10 mg tablet take 1 tablet (10MG) by ORAL route every day in the evening 0 09/18/2016 2 montelukast (SINGULAIR) 10 mg tablet take 1 tablet by oral route every day in the evening 0 0 07/21/2015 7 olopatadine (PATADAY) 0.2 % ophthalmic solution instill 1 drop by ophthalmic route every day into affected eye(s) 1 Bottle 2 09/18/[address] (PROTONIX) 40 mg EC tablet TAKE ONE TABLET BY MOUTH TWICE A DAY 90 3 09/07/[address] (PROTONIX) 40 mg EC tablet TAKE ONE TABLET BY MOUTH TWICE A DAY 90 2 09/07/[address] (PROTONIX) 40 mg EC tablet TAKE ONE TABLET BY MOUTH TWICE A DAY 90 3 09/07/2014 7 pen needle, diabetic (BD INSULIN PEN NEEDLE UF MINI) 31 gauge x 09/26 needle USE ONE NEEDLE DIRECTED EIGHT TIMES A DAY 300 each 2 12/29/2014 7 pen needle, diabetic (BD INSULIN PEN NEEDLE UF MINI) 31 gauge x 3/16 needle USE ONE NEEDLE DIRECTED EIGHT TIMES A DAY 300 6 12/29/2014 7 pen needle, diabetic (NOVOFINE 32) 32 gauge x 1/4 needle USE 8 TIMES A DAY OR DIRECTED 240 each 11 11/26/2010 7 simvastatin (ZOCOR) 40 mg tablet take 1/2 Tablet by ORAL route every day in the evening 11 06/28/2010 7 simvastatin (ZOCOR) 40 mg tablet TAKE ONE TABLET BY MOUTH EVERY EVENING 156 11 06/28/2010 7 traMADol (ULTRAM) 50 mg tablet take 1 tablet by ORAL route every 6 hours as needed 60 2 06/21/2013 2 varicella zoster (ZOSTAVAX, PF,) 19,400 unit/0.65 mL injection administer one 1 vial 0 07/18/2016 7 zoledronic bybr-uxmgvrbd-a ater (RECLAST) 5 mg/100 mL piggyback tud 1 Syringe 0 08/14/2015 0 zoledronic emyy-mmfmggtf-p ater (RECLAST) 5 mg/100 mL piggyback tud 1 Syringe 0 08/14/2015 7 documented as of this encounter Discharge Disposition Disposition Code Departure Means Destination Discharge to home or self care documented in this encounter Plan of Treatment Not on file documented as of this encounter Procedures Procedure Name Priority Date/Time Associated Diagnosis Comments EGFR Routine 12/13/2016 2:35 PM CDT LIPID PANEL WITH REFLEX TO DIRECT LDL Routine 12/13/2016 2:35 PM CDT URINALYSIS AND REFLEX TO MICROSCOPIC AND CULTURE Routine 12/13/2016 2:35 PM CDT ALBUMIN, RANDOM URINE WITHOUT CREATININE Routine 12/13/2016 2:35 PM CDT HEMOGLOBIN A1C Routine 12/13/2016 2:35 PM CDT BASIC METABOLIC PANEL Routine 12/13/2016 2:35 PM CDT HEPATITIS C AB REFLEX RNA QUANT PCR Routine 12/13/2016 2:31 PM CDT documented in this encounter Results * (ABNORMAL) Hemoglobin A1c (12/13/2016 2:35 PM CDT) Hgb A1C 7.5(H) 4.0 - 6.0 % ANN MENDES Comment: Interpretive Data Hemoglobin A1c ADA Interpretive Guidelines ??<7% ?? Glycemia controlled ??>8% ?? Hyperglycemia, additional action recommended Cinthia Immunochemical Method Current interpretive data was last revised on 2015 Testing performed by: [facility], [place] [address] Estimated Average Glucose 169 mg/dL ANN MENDES Comment:Testing performed by : [facility], [place] [address] Blood specimen (specimen) 12/13/2016 2:35 PM CDT 12/14/2016 10:30 AM CDT us Clayton Sandoval MD LAB BLOOD ORDERABLES Fin al Result ANN [address] Department [place] [address] * eGFR (12/13/2016 2:35 PM CDT) eGFR 33 mL/min/1.7 3 m2 ANN MENDES Comment: Interpretive Data Reference Interval Normal ?>/= 90 mL/min/1.73m2 Mildly decreased* ? 60 - 89 mL/min/1.73m2 Mildly to moderately decreased ?45 - 59 mL/min/1.73m2 Moderately to severely decreased ??30 - 44 mL/min/1.73m2 Severely decreased ?15 - 29 mL/min/1.73m2 Kidney Failure ?< 15 ??mL/min/1.73m2 *Relative to young adult level If -Bulgarian multiply value by 1.16. Estimated glomerular filtration [...] was last reviewed 2016. Blood specimen (specimen) 12/13/2016 2:35 PM CDT 12/13/2016 7:07 PM CDT us Clayton Sandoval MD LAB BLOOD ORDERABLES Fin al Result ANN [address] Department [place] [address] * (ABNORMAL) Lipid panel with reflex to direct LDL (12/13/2016 2:35 PM CDT) Cholesterol 113 100 - 200 mg/dL ANN MENDES Comment: Interpretive Data Desirable: ?<200 mg/dL Borderline high: ??200-239 mg/dL High: ? >240 mg/dL Current interpretive data was last revised on 2016. Triglycerides 89 10 - 150 mg/dL ANN MENDES Comment: Interpretive Data Desirable: ? < 150 ? mg/dL Borderline High: ? 150 - 199 mg/dL High: ?200 - 499 mg/dL Very High: ? > or = 499 ??mg/dL Current interpretive data was last revised on 2016. HDL 47 40 - 59 mg/dL ANN MENDES Comment: Interpretive Data Less than 40 mg/dL - Low; A major risk factor for heart disease. Greater than or equal to 60 mg/dL - High; ??Considered protective of heart disease. Current interpretive data was last revised on 2016. LDL, calculated 48(L) 60 - 129 mg/dL CERNER CH Comment: Interpretive Data Optimal: ? < 100 mg/dL Near Optimal: ?100 - 129 mg/dL Borderline High: ?? 130 - 159 mg/dL High: ?> 160 mg/dL Current interpretive data was last revised on 2016. Chol/HDL ratio 2 mg/dL CERNER CH Blood specimen (specimen) 12/13/2016 2:35 PM CDT 12/13/2016 6:59 PM CDT Clayton Sandoval MD LAB BLOOD ORDERABLES Fin al Result Performing Organization Address [facility] de Phone Number [facility] [address] Department [place] [address] * (ABNORMAL) Basic metabolic panel (12/13/2016 2:35 PM CDT) Pathologist [facility] Sodium 139 135 - 145 mmol/L CERNER CH Potassium, pl 5.1 3.5 - 5.1 mmol/L [facility] Chloride 105 100 - 114 mmol/L [facility] CO2 20(L) 22 - 32 mmol/L [facility] BUN 18 8 - 24 mg/dL CERNER Glucose 143 70 - 199 mg/dL CERNER Creatinine 1.59(H) 0.60 - 1.30 mg/dL [facility] Calcium 9.2 8.4 - 10.5 mg/dL C[facility] Anion gap 19(H) 8 - 16 mmol/L C[facility] CH Blood specimen (specimen) 12/13/2016 2:35 PM CDT 12/13/2016 6:59 PM CDT Clayton Sandoval MD LAB BLOOD ORDERABLES Fin al Result Performing Organization Address [facility] de Phone Number [facility] [address] [address] Department [place] [address] * (ABNORMAL) Microalbumin, urine, random (12/13/2016 2:35 PM CDT) Microalbumin, ur 46.0(H) 0.0 - 29.9 mcg/mL CERNER CH Creatinine, ur 55.77 mg/dL C[facility] CH Microalbumin/crea t ratio 82.5(H) 0.0 - 29.9 mcg/mg Cr CERNER CH Comment: Interpretive Data Normal: ?< 30 mcg/mg Microalbuminuria: ?30 - 300 mcg/mg Clinical Albuminuria: ? 300 mcg/mg Current interpretive data was last reviewed 2015 Urine/Blood 12/13/2016 2:35 PM CDT 12/13/2016 6:59 PM CDT Clayton Sandoval MD LAB URINE ORDERABLES Fin al Result Performing Organization Address [facility] de Phone Number [facility] [address] [address] [place] [address] * Urinalysis reflex to microscopic and culture (12/13/2016 2:35 PM CDT) Color, ur Straw CERNER CH Clarity, ur Clear [facility]ER CH Specific gravity, ur 1.009 1.001 - 1.033 CERNER CH pH, ur 5.0 5.0 - 8.0 [facility] Protein, ur ql Negative Negative [facility] Glucose, ur ql Negative Negative [facility] Ketones, ur Negative Negative [facility] Bilirubin, ur Negative Negative [facility] Blood, ur Negative Negative [facility] Urobilinogen, ur <2.0 <2.0 [facility] Nitrites, ur Negative Negative [facility] Leukocyte esterase, ur Negative Negative [facility] CH Urine/Blood 12/13/2016 2:35 PM CDT 12/13/2016 6:59 PM CDT Clayton Sandoval MD LAB MICROBIOLOGY - GENER AL ORDERABLES Final Result Performing Organization Address [facility] de Phone Number [facility] [address] [address] Department [place] [address] * Hepatitis C Antibody Reflex Hepatitis C RNA Quantitative PCR (12/13/2016 2:31 PM CDT) Hep C Ab Negative Negative ANN MENDES Blood specimen (specimen) 12/13/2016 2:31 PM CDT 12/13/2016 7:01 PM CDT us Clayton Sandoval MD LAB MICROBIOLOGY - GENER AL ORDERABLES Final Result ANN MENDES [address] Department [place] [address] documented in this encounter Visit Diagnoses Not on filedocumented in this encounter Care Teams Tubing Drier Relationship Specialty Start Date End Date Clayton Sandoval MD [address] [place] [address] PCP - General 10/11/16 08/02/19 documented as of this encounter
--- OUTSIDE RECORDS SUMMARY | 2024-07-11 22:41 | XMS_ITS | Encounter Summary ---
Author Organization [facility] Address [address] [place] [address] Care Team Providers Care Core Drill Operator Name Role Phone Clayton Sandoval MD Primary Care Provider + Reason for Visit * Reason Onset Date Comments EGD 11/17/2018 procedure questions 11/17/2018 Encounter Details Date Type Department Care Team (Late st Contact Info) Description 11/17/2018 Telephone [facility] Gastroenterology at [address] [place] [address] Lindy Campos EGD; procedure questions Social History Tobacco Use Types Packs/Day Years Used Date Smoking Tobacco: Never Smokeless Tobacco: Never Alcohol Use Standard Drinks/Week Comments Yes 0 (1 standard drink = 0.6 oz pur e alcohol) Comments No Sex and Gender Information Value Date Recorded Sex Assigned at Not on file 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 Gender Identity Not on file Sexual Orientation Not on file documented as of this encounter Miscellaneous Notes * Telephone Encounter - Lindy Campos - 11/17/2018 11:47 AM CDT Scheduled EGD w/ Dr Tello 12/15/18 @ 10:00, prep given and mailed address verified Last colonoscopy: Family history colon cancer (if yes, relationship to pt): Personal history colon polyps or colon cancer: Pt on blood thinner (if yes, list medication and reason for taking): no Has pt had recent stent placement within the last year: no Pt have pacemaker/defibrillator: no Pt diabetic (if yes, insulin or oral meds): yes, insulin Pt have kidney disease or on dialysis: no Pt on iron: no Instructed pt to call with any medical changes and/or medications/insurance. documented in this encounter Plan of Treatment Not on file documented as of this encounter Visit Diagnoses Diagnosis Persistent vomiting- Primary documented in this encounter Orders Case Request Count Last Ordered Date First Orde red Date CASE REQUEST GI 1 11/17/2018 documented in this encounter Care Teams Core Drill Operator Relationship Specialty Start Date End Date Clayton Sandoval MD [address] [address] PCP - General 10/11/16 08/02/19 documented as of this encounter
--- OUTSIDE RECORDS SUMMARY | 2024-07-11 22:41 | XMS_ITS | Encounter Summary ---
Author Organization [facility] Healthcare Address [address] [place] [address] Care Team Providers Care Sales Representative Cash Registers Name Role Phone Clayton Sandoval MD Primary Care Provider + Encounter Details Date Type Department Care Team (Latest Contact Info) Description 09/28/2018 10:57 AM CDT - 09/28/2018 12:21 PM CDT Hospital Encounter [facility] [address] [place] [address] Karlene Ramirez MD [address] [place] [id number] Hx of colonic polyps; Family hx of colon cancer Discharge Disposition: Discharge to home or self care Social History Tobacco Use Types Packs/Day Years Used Date Smoking Tobacco: Never Smokeless Tobacco: Never Alcohol Use Standard Drinks/Week Comments Yes 0 (1 standard drink = 0.6 oz pur e alcohol) Comments No Sex and Gender Information Value Date Recorded Sex Assigned at Not on file 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 HX OTHER MEDICAL [facility] [...] disc surg. 2007.; Comments: J 07/25/2015 - ??? HX OTHER MEDICAL Breast reduction 2008.; Comments: J 07/25/2015 - ??? HX OTHER MEDICAL left hip and leg surgery ??? HX OTHER MEDICAL conversion of previous hip arthroplasty left hip; Comments: [facility] TCU unit 02/06 - 02/17/16 [...] (two) times a day 1/2 tablet by [email or web address] 09/28/2018 at Unknown time ??? fluticasone (FLONASE) [...] before procedure 4 tablet/capsule 5 Taking ??? evfimfy-ruaeqbqinqscx-nfadxzxy (EXCEDRIN MIGRAINE) 250-250-65 mg per tablet Take [...] directed 300 each 3 Taking ??? zoledronic fjtw-wmngaagv-krslq (RECLAST) 5 mg/100 mL piggyback tud 1 [...] Order(s): COLONOSCOPY [facility] Patient Name: Susana Renteria Procedure Date: 09/28/2018 11:33 AM Date of : 1950 Admit Type: Outpatient Age: 68 Gender: Female Attending MD: Karlene Ramirez M.D. Room: [facility] ENDOSCOPY ROOM 1 Note Status: Finalized [...] under direct vision. The Pediatric Colonoscope PCF-H190L [id number] was introduced through the anus and advanced [...] 11:33 AM Procedure Code(s): --- Professional --- 95477, Colonoscopy, flexible; with biopsy, single or multiple Diagnosis Code(s): --- Professional --- Z80.0, Family history of malignant neoplasm of digestive organs Z86.010, Personal history of colonic polyps K64.8, Other hemorrhoids D12.4, Benign neoplasm of descending colon CPT copyright 2017 [employer]. All rights reserved. The codes documented in this report are preliminary and upon remote medical coder review may be revised to meet current compliance requirements. Recognized by the [employer] for promoting quality [...] 09/28/2018 12:20 PM CDT Narrative PATHOLOGY [facility] ([facility]) - 09/30/2018 10:00 AM CDT EPIC results best viewed via link to PDF [facility] Department of Pathology [address] [place] [id number] Final Report Patient Name: ??SUSANA RENTERIA Address: ??[address] [place] [address] , ??[place], [place] ??[address] Gender: ??F : ??1950 (Age: 68) Service: ??Gastro Location: [facility] #: ??[id number] Patient Type: ??[facility] SDS Accession # ?[id number] Taken: ??09/28/2018 Received: ??09/28/2018 Accessioned: ??09/28/2018 Reported: ??09/30/2018 Physician(s):Dr. Karlene Ramirez M.D. Diagnosis: Descending colon, biopsies: ? - Tubular adenoma(s) Radha Simms M.D. Report Electronically Reviewed and Signed Out By ??Radha Smims M.D. ??09/30/2018 10:00:23 Specimen(s) Received: A: Colon, [...] is submitted in a single container labeled Susana Liza Renteria and descending colon polyps . ??It is seven myers tissue fragments measuring 1-2 mm. ??All in one cassette. ??Micah Kwan M.D./Ana Montgomery, P.A. REPORT IMAGES AND SCANNED DOCUMENTS, IF INCLUDED, ONLY VIEWABLE IN PDF VERSION OF REPORT The performance characteristics of some immunohistochemical stains, fluorescence in-situ hybridization tests and immunophenotyping by flow cytometry cited in this report (if any) were determined by the Surgical Pathology Department at [facility] as part of an ongoing quality assurance assessor program and in compliance with federally mandated [...] characteristics determined by the Surgical Pathology Department [facility]. ??It has not been cleared or approved by the U. S. Food and Drug Administration. us Karlene Ramirez MD LAB PATHOLOGY ORDERABLES F inal Result Performing Organization Address [facility]/ZIP Co de Phone Number PATHOLOGY [facility] ([facility]) [address] [place] [address] * (ABNORMAL) POCT glucose (09/28/2018 11:45 AM CDT) Glucose, POC 161(H) 71 - 98 mg/dL [facility]) Blood specimen (specimen) 09/28/2018 11:45 AM CDT 09/28/2018 11:45 AM CDT Narrative [facility] - 09/28/2018 11:48 AM CDT Karlene Ramirez MD LAB POCT ORDERABLES - MUKESH CE Final Result Performing Organization Address [facility]/ZIP Co de Phone Number [address] Department [place] [address] * COLONOSCOPY (09/28/2018 11:33 AM CDT) Anatomical Region Laterality Modality Other Narrative Procedure Note Karlene Ramirez MD - 09/28/2018 11:33 AM CDT [facility] Patient Name: Susana Renteria Procedure Date: 09/28/2018 11:33 AM Date of : 1950 Admit Type: Outpatient Age: 68 Gender: Female Attending MD: Karlene Ramirez M.D. Room: [facility] ENDOSCOPY ROOM 1 Note Status: Finalized [...] passed under direct vision.The Pediatric Colonoscope PCF-H190L [id number] was introduced through the anus and advanced [...] 11:33 AM Procedure Code(s): --- Professional --- 28954, Colonoscopy, flexible; with biopsy, single or multiple Diagnosis Code(s): --- Professional --- Z80.0, Family history of malignant neoplasm of digestive organs Z86.010, Personal history of colonic polyps K64.8, Other hemorrhoids D12.4, Benign neoplasm of descending colon CPT copyright 2017 [employer]. All rights reserved. The codes documented in this report are preliminary and upon remote medical coder reviewmay be revised to meet current compliance requirements. Recognized by the [employer] for promoting quality [...] times a day 1/2 tablet by mouth 2x08/02/2019 added in this encounter Active and Recently [...] (New Bag - Prov ider: Alexey Gray, [facility]) sodium chloride 0.9% infusion 125 mL/hr, intravenous, [...] 09/28/2018 documented in this encounter Care Teams Sales Representative Cash Registers Relationship Specialty Start Date End Date Clayton Sandoval MD [address] [place] [address] PCP - General 10/11/16 08/02/19 documented as of this encounter
--- OUTSIDE RECORDS SUMMARY | 2024-07-11 22:41 | XMS_ITS | Encounter Summary ---
Author Organization [facility] Healthcare Address [address] [place] [address] Care Team Providers Care Knuckle Strap Sewer Name Role Phone Clayton Sandoval MD Primary Care Provider + Reason for Referral * Diagnostic Imaging (Routine) - Closed Specialty Diagnoses / Procedures Referred By Contac t Referred To Contact Diagnoses Sarcoidosis of lung (HCC) Procedures XR Chest Pa Lateral 2 Views Tito Pierre MD Phone: tel: fax: [address] [phone] Referral ID Status Reason Start Date Expiration Date Visits Re quested Visits Authorized [id number] Closed 10/14/2018 04/24/2020 1 1 Reason for Visit * Diagnostic Imaging (Routine) - Closed Specialty Diagnoses / Procedures Referred By Contac t Referred To Contact Diagnoses Sarcoidosis of lung (HCC) Procedures XR Chest Pa Lateral 2 Views Tito Pierre MD Phone: tel: fax: [address] [phone] Referral ID Status Reason Start Date Expiration Date Visits Re quested Visits Authorized [id number] Closed 10/14/2018 04/24/2020 1 1 Encounter Details Date Type Department Care Team (Latest Contact Info) Description 10/14/2018 12:00 PM CDT - 10/14/2018 11:59 PM CDT Hospital Encounter [facility] [address] [place] [address] [place] [address] 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 Gender Identity Not on file Sexual [...] as needed 60 2 06/21/2013 [address] jpkb-jtmfuqis-ro ter (RECLAST) 5 mg/100 mL piggyback tud 1 Syringe 0 08/14/2015 0 documented as of this encounter Discharge Disposition Disposition Code Departure Means Destination Discharge to home or self care documented in this encounter Plan of Treatment Not on file documented as of this encounter Procedures Procedure Name Priority Date/Time Associated Diagnosis Comments XR CHEST PA LATERAL 2 VIEWS Schedule Routine, Read Routine (OP Routine) 10/14/2018 12:11 PM CDT Sarcoidosis of lung (CMS/HCC) documented in this encounter Results * XR Chest Pa Lateral 2 Views (10/14/2018 12:11 PM CDT) Anatomical Region Laterality Modality Body, Chest N/A Computed Radiogr aphy 10/14/2018 1:00 PM CDT Impressions 10/14/2018 1:19 PM CDT No acute cardiopulmonary findings. Electronically signed by: Brooks Mock M.D. Narrative 10/14/2018 1:19 PM CDT RESULT: EXAMINATION: PA AND LATERAL CHEST RADIOGRAPHS Date: 10/14/2018 12:00 PM History: Sarcoidosis of lung Comparison: Comparison is made to the radiographic examination dated 10/16/2016. Findings: Normal heart size. ??No pleural effusion , vascular congestion, focal consolidation, or pneumothorax. ??Mild bilateral hilar prominence again seen, consistent with history of sarcoidosis. Procedure Note Brooks Mokc MD - 10/14/2018 RESULT: EXAMINATION: PA AND LATERAL CHEST RADIOGRAPHS Date: 10/14/2018 12:00 PM History: Sarcoidosis of lung Comparison: Comparison is made to the radiographic examination dated 10/16/2016. Findings: Normal heart size. No pleural effusion , vascular congestion, focal consolidation, or pneumothorax. Mild bilateral hilar prominence again seen, consistent with history of sarcoidosis. IMPRESSION: No acute cardiopulmonary findings. Electronically signed by: Brooks Mock M.D. Tito Pierre MD IMG XR PROCEDURES Final Result documented in this encounter Visit Diagnoses Diagnosis Sarcoidosis of lung (HCC) Sarcoidosis documented in this encounter Care Teams Knuckle Strap Sewer Relationship Specialty Start Date End Date Clayton Sandoval MD [address] [place] [address] PCP - General 10/11/16 08/02/19 documented as of this encounter
--- OUTSIDE RECORDS SUMMARY | 2024-07-11 22:41 | XMS_ITS | Encounter Summary ---
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
--- OUTSIDE RECORDS SUMMARY | 2024-07-11 22:41 | XMS_ITS | Encounter Summary ---
Author Organization [facility] Healthcare Address [address] [place] [address] Care Team Providers Care Burglar Alarm Inspector Name Role Phone Clayton Sandoval MD Primary Care Provider + Encounter Details Date Type Department Care Team (Latest Contact Info) Description 12/22/2018 8:56 AM CDT - 12/22/2018 11:37 AM CDT Hospital Encounter [facility] [address] [place] [address] Karlene Ramirez MD [address] [place] [id number] Discharge Disposition: Discharge to home or self care Social History Tobacco Use Types Packs/Day Years Used Date Smoking Tobacco: Never Smokeless Tobacco: Never Alcohol Use Standard Drinks/Week Comments Yes 0 (1 standard drink = 0.6 oz pur e alcohol) occasional Comments No Sex and Gender Information Value Date Recorded Sex Assigned at Not on file 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 Gender Identity Not on file Sexual Orientation Not on file documented as of this encounter Last Filed Vital Signs Vital Sign Reading Time Taken Comments Blood Pressure 138/59 12/22/2018 11:20 AM CDT Pulse 78 12/22/2018 11:20 AM CDT Temperature 36.3 ??C (97.4 ??F) 12/22/2018 11:20 AM C DT Respiratory Rate 18 12/22/2018 11:20 AM CDT Oxygen Saturation 95% 12/22/2018 11:20 AM CDT Inhaled Oxygen Concentration - - [...] 1 tablet (81 mg total) by mouth dormitory maid before breakfast 4 aspirin-acetamin ophen-caffeine (EXCEDRIN MIGRAINE) [...] as needed 60 2 06/21/2013 2 z[address] irlw-emawdrtf-gu ter (RECLAST) 5 mg/100 mL piggyback tud [...] 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 HX OTHER MEDICAL [facility] OA ??? [...] OTHER MEDICAL Cervical disc surg. 2008.; Comments: [facility] 07/25/2015 - ??? HX OTHER MEDICAL Breast reduction 2009.; Comments: [facility] 07/25/2015 - ??? HX OTHER MEDICAL left hip and leg surgery ??? HX OTHER MEDICAL conversion of previous hip arthroplasty left hip; Comments: [facility] T[facility] unit 02/06 - 02/17/16 for rehabilitation. [...] daily Past Week at Unknown time ??? yntmisw-otyqpvsbfwrjs-ddgrgrio (EXCEDRIN MIGRAINE) 250-250-65 mg per tablet Take [...] (two) times a day 1/2 tablet by [id number] 12/22/2018 at Unknown time ??? fluticasone (FLONASE) [...] directed 300 each 3 Taking ??? zoledronic vuui-wbfkgjhw-ynxgy (RECLAST) 5 mg/100 mL piggyback tud 1 [...] Female Attending MD: Karlene Ramirez M.D. Room: [facility] ENDOSCOPY ROOM 1 Note Status: Finalized Patient [...] passed under direct vision. The Endoscope GIF-H190 [id number] was introduced through the mouth, and advanced [...] 10:21 AM Procedure Code(s): --- Professional --- 02570, Esophagogastroduodenoscopy, flexible, transoral; with biopsy, single or multiple Diagnosis Code(s): --- Professional --- K31.89, Other diseases of stomach and duodenum R11.2, Nausea with vomiting, unspecified CPT copyright 2017 [employer]. All rights reserved. The codes documented in this report are preliminary and upon engineering department chair review may be revised to meet current compliance requirements. Recognized by the [employer] for promoting quality in endoscopy documented in this encounter Miscellaneous Notes * Perioperative Nursing Note - Melida Montgomery RN - 12/22/2018 11:[address] Ramirez in to discuss test results with patient [...] Ramirez MD - 12/22/2018 10:21 AM CDT [facility] Patient Name: Criss Ly Procedure Date: 12/22/2018 10:21 AM Date of : 1950 Admit Type: Outpatient Age: 68 Gender: Female Attending MD: Karlene Ramirez M.D. Room: [facility] ENDOSCOPY ROOM 1 Note Status: Finalized Patient [...] was passed under direct vision.The Endoscope GIF-[id number] was introduced throughthe mouth, and advanced to [...] 10:21 AM Procedure Code(s): --- Professional --- 63077, Esophagogastroduodenoscopy, flexible, transoral; with biopsy, single or multiple Diagnosis Code(s): --- Professional --- K31.89, Other diseases of stomach and duodenum R11.2, Nausea with vomiting, unspecified CPT copyright 2017 [employer]. All rights reserved. The codes documented in this report are preliminary and upon engineering department chair reviewmay be revised to meet current compliance requirements. Recognized by the [employer] for promoting quality in endoscopy us Karlene Ramirez MD ENDOSCOPY PROCEDURES Final Result * (ABNORMAL) POCT glucose (12/22/2018 9:37 AM CDT) Glucose, POC 185(H) 71 - 98 mg/dL ANN CUADRA ([place]) Blood specimen (specimen) 12/22/2018 9:37 AM CDT 12/22/2018 9:37 AM CDT Narrative ANN CUADRA ([place]UA) - 12/22/2018 9:54 AM CDT Karlene Ramirez MD LAB POCT ORDERABLES - MUKESH CE Final Result ANN CUADRA ([place]) [address] [facility] Department [place] [address] documented in this encounter Visit Diagnoses Diagnosis Persistent vomiting- Primary documented in this encounter Admitting Diagnoses [...] 1 tablet (81 mg total) by mouth dormitory maid before breakfast 4 insulin aspart U-100 (NovoLOG) [...] 12/22/2018 documented in this encounter Care Teams Burglar Alarm Inspector Relationship Specialty Start Date End Date Clayton Sandoval MD [address] [facility] [place] [address] PCP - General 10/11/16 08/02/19 documented as of this encounter
--- OUTSIDE RECORDS SUMMARY | 2024-07-11 22:41 | XMS_ITS | Encounter Summary ---
Author Organization [facility] Healthcare Address [address] [place] [address] Care Team Providers Care Help Desk Operator Name Role Phone Clayton Sandoval MD Primary Care Provider + Encounter Details Date Type Department Care Team (Late st Contact Info) Description 01/26/2018 1:30 PM CDT - 01/26/2018 11:59 PM CDT Hospital Encounter [facility] [address] [place] [address] Clayton Sandoval MD [address] [facility] [address] Deejay Maria MD [address] [address] Alyson Wilson, MARKOS [address] [place] [address] Lumbago Discharge Disposition: Discharge to home or self care Social History Tobacco Use Types Packs/Day Years Used Date Smoking Tobacco: Never Smokeless Tobacco: Never Alcohol Use Standard Drinks/Week Comments Yes 0 (1 standard drink = 0.6 oz pur e alcohol) Comments No Sex and Gender Information Value Date Recorded Sex Assigned at Not on file 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 ??Mild right paracentral disc protrusion at L4-L5 and mild central disc protrusion at L5-S1. 2. ??Mild disc bulging at L2-L3 and L3-L4. 3. ??Mild to moderate central canal and bilateral foraminal stenosis at L4-L5; mild at L2-L3 and L3-L4. 4. ??Suggestion of small laminectomy defects on the left at L3-L4 and L4-L5. 5. ??Minimal retrolisthesis of L2 on L3 and anterolisthesis of L4 on L5. 6. ??Variable degrees of degenerative disc disease and disc space narrowing from L2-L3 through L4-L5. Electronically signed by: Prashanth Delgado Jr., M.D. Narrative 01/26/2018 3:54 PM CDT MRI LUMBAR SPINE WO CONTRAST HISTORY: Low back pain. TECHNIQUE: Sagittal T1, T2, STIR; axial T1, T2. COMPARISON: Lumbar CT myelogram on 05/03/2005. FINDINGS: Vertebral body height is normal. ??L2 is subluxed posteriorly on L3 approximately 6 mm. ??L4 is subluxed anteriorly on L5 approximately 5 mm. ??L2-L3 disc space is mildly narrowed; L3-L4 disc space is moderately narrowed; L4-L5 disc space is mildly narrowed. ??There are reactive changes in marrow adjacent to vertebral endplates, particularly at L4-L5. ??Moderate spurring anteriorly is seen at L2-L3 and L3-L4; mild at L4-L5. At L1-L2, disc appears normal. ??Ligamentum flavum thickening is mild. There is no significant stenosis. At L2-L3, mild diffuse disc bulging combines with facet osteoarthritis and ligamentum flavum thickening to cause mild central canal stenosis. At L3-L4, mild diffuse disc bulging, mild facet osteoarthritis and mild ligamentum flavum thickening combine to cause mild central canal and bilateral foraminal stenosis. ??Small laminectomy defect is seen on the left at this level. At L4-L5, right paracentral disc protrusion along with mild diffuse disc bulging combines with some ligamentum flavum thickening and facet osteoarthritis to cause mild to moderate central canal and bilateral foraminal stenosis. ??Small laminectomy defect is seen on the left at this level. At L5-S1, there is mild central disc protrusion and mild bilateral facet osteoarthritis. ??No significant stenosis is seen at this level. No intraspinal, perispinal or paravertebral mass is identified. Procedure Note Prashanth Delgado MD - 01/26/2018 MRI LUMBAR SPINE WO CONTRAST HISTORY: Low back pain. TECHNIQUE: Sagittal T1, T2, STIR; axial T1, T2. COMPARISON: Lumbar CT myelogram on 05/03/2005. FINDINGS: Vertebral body height is normal. L2 [...] at L2-L3 and L3-L4; mild at L4-L5. At L1-L2, disc appears normal. Ligamentum flavum thickening is mild. There is no significant stenosis. At L2-L3, mild diffuse disc bulging combines with facet osteoarthritis and ligamentum flavum thickening to cause mild central canal stenosis. At L3-L4, mild diffuse disc bulging, mild facet osteoarthritis and mild ligamentum flavum thickening combine to cause mild central canal and bilateral foraminal stenosis. Small laminectomy defect is seen on the left at this level. At L4-L5, right paracentral disc protrusion along with mild diffuse disc bulging combines with some ligamentum flavum thickening and facet osteoarthritis to cause mild to moderate central canal and bilateral foraminal stenosis. Small laminectomy defect is seen on the left at this level. At L5-S1, there is mild central disc protrusion and mild bilateral facet osteoarthritis. No significant stenosis is seen at this level. No intraspinal, perispinal or paravertebral mass is identified. IMPRESSION: 1. Mild right paracentral disc protrusion [...] disc space narrowing from L2-L3 through L4-L5. Electronically signed by: Prashanth Delgado Jr., M.D. Clayton Sandoval MD IMG MRI PROCEDURES Final Result documented in this encounter Visit Diagnoses Diagnosis Lumbago documented in this encounter Care Teams Help Desk Operator Relationship Specialty Start Date End Date Clayton Sandoval MD [address] [place] [address] PCP - General 10/11/16 08/02/19 documented as of this encounter
--- OUTSIDE RECORDS SUMMARY | 2024-07-11 22:41 | XMS_ITS | Encounter Summary ---
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
--- OUTSIDE RECORDS SUMMARY | 2024-07-11 22:41 | XMS_ITS | Encounter Summary ---
Author Organization [facility] Address [address] [place] [address] Care Team Providers Care Miter Sawyer Name Role Phone Clayton Sandoval MD Primary Care Provider + Reason for Visit * Reason Onset Date Comments EGD 11/18/2018 Reschedule Encounter Details Date Type Department Care Team (Late st Contact Info) Description 11/18/2018 Telephone [facility] Gastroenterology at [address] [place] [address] Janet Travis I., RN EGD (Reschedule) Social History Tobacco Use Types Packs/Day Years Used Date Smoking Tobacco: Never Smokeless Tobacco: Never Alcohol Use Standard Drinks/Week Comments Yes 0 (1 standard drink = 0.6 oz pur e alcohol) Comments No Sex and Gender Information Value Date Recorded Sex Assigned at Not on file 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 Pt aware I will be mailing her new, updated EGD instructions. R/s faxed to Endo. * Telephone Encounter - Janet Travis MA - 11/18/2018 10:[address] Ramirez out 12/15/18 - for pt to c/b and r/s EGD. documented in this encounter Plan of Treatment Not on file documented as of this encounter Visit Diagnoses Not on filedocumented in this encounter Care Teams Miter Sawyer Relationship Specialty Start Date End Date Clayton Sandoval MD [address] [place] [address] PCP - General 10/11/16 08/02/19 documented as of this encounter
--- OUTSIDE RECORDS SUMMARY | 2024-07-11 22:41 | XMS_ITS | Encounter Summary ---
Author Organization [facility] Address [address] [place] [address] Care Team Providers Care Tie Layer Name Role Phone Clayton Sandoval MD Primary Care Provider + Encounter Details Date Type Department Care Team (Late st Contact Info) Description 01/15/2017 Telephone [facility] [address] [facility] [address] [place] [address] Esperanza Leon MA Social History Tobacco Use Types Packs/Day Years Used Date Smoking Tobacco: Never Alcohol Use Standard Drinks/Week Comments Yes 0 (1 standard drink = 0.6 oz pur e alcohol) Comments Unknown Sex and Gender Information Value Date Recorded Sex Assigned at Not on file 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 Gender Identity Not on file Sexual Orientation Not on file documented as of this encounter Miscellaneous Notes * Telephone Encounter - Michelle Herrera - 01/16/2017 9:17 AM CDT erx'd to schnucks * Telephone Encounter - Clayton Sandoval MD - 01/15/2017 4:53 PM CDT Fill as patient is taking * Telephone Encounter - Esperanza Leon MA - 01/15/2017 3:41 PM CDT Rc'd refill request from [facility] for Simvastatin 40mg sig 1 po QD-rx in Epic didn't have a dr attached to it so I looked in NextGen and saw that Augustine had decreased it to 40mg 1/2 tab daily.I checked with pt; she states that she never decreased it, she always took 40mg 1 tab daily. LF 10-18-16 NOV 03-31-17 Aware CG out of office and okay to hold for his return. documented in this encounter Plan of Treatment Not on file documented as of this encounter Visit Diagnoses Not on filedocumented in this encounter Care Teams Tie Layer Relationship Specialty Start Date End Date Clayton Sandoval MD [address] [place] [address] PCP - General 10/11/16 08/02/19 documented as of this encounter
--- OUTSIDE RECORDS SUMMARY | 2024-07-11 22:41 | XMS_ITS | Encounter Summary ---
Author Organization [facility] Address [address] [place] [address] Care Team Providers Care Administrative Processor Name Role Phone Clayton Sandoval MD Primary Care Provider + Reason for Visit * Reason Comments Hypertension Diabetes Encounter Details Date Type Department Care Team (Late st Contact Info) Description 03/31/2017 3:45 PM CDT Office Visit [facility] [address] [place] [address] Clayton Sandoval MD [address] [place] [address] Type 2 diabetes mellitus with stage 3 chronic kidney disease, with long-term current use of insulin (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 Gender Identity Not on file Sexual Orientation Not on file documented as of this encounter Last Filed Vital Signs Vital Sign Reading Time Taken Comments Blood Pressure 130/60 03/31/2017 3:55 PM CDT Pulse 80 03/31/2017 3:55 PM CDT Temperature - - Respiratory Rate 22 03/31/2017 3:55 PM CDT Oxygen Saturation - - Inhaled Oxygen Concentration - - Weight 107.5 kg (237 lb) 03/31/2017 3:55 PM CDT Height 167.6 cm (5' 6 ) 03/31/2017 3:55 PM CDT Body Mass Index 38.25 03/31/2017 3:55 PM CDT documented in this encounter Ordered Prescriptions Prescription Sig Dispense Quantity Refills Last Filled Start Date End Date insulin glargine (LANTUS) 100 unit/mL (3 mL) insulin penIndications:typ e 2 diabetes mellitus Inject 0.44 mL (44 Units total) under the skin daily. 5 pen 3 03/31/2017 0 amLODIPine (NORVASC) 10 mg tabletIndications: Essential hypertension,Bilat eral leg edema Take 0.5 tablets (5 mg total) by mouth daily. 45 tablet 3 03/31/2017 8 insulin glargine (LANTUS) 100 unit/mL (3 mL) insulin penIndications:typ e 2 diabetes mellitus Inject 0.48 mL (48 Units total) under the skin daily. 5 pen 11 03/31/2017 7 documented in this encounter Progress Notes * Stormy Watkins MA - 03/31/2017 3:45 PM CDT Subjective/Objective Patient ID: Criss Ly is a 66 y.o. female. Chief Complaint No chief complaint on file. HPI Review of Systems Physical Exam Feet: Right Foot: Monofilament exam normal. Left Foot: Monofilament exam normal. Assessment/Plan There are no diagnoses linked to this encounter. AL COORDINATOR * Clayton Sandoval MD - 03/31/2017 3:45 PM CDT Subjective/Objective Patient ID: Criss Ly is a 66 y.o. female. Chief Complaint Hypertension and Diabetes HPI Hypertension diabetes and sarcoidosis. No headaches shortness of breath chest pain angina orthopneaPND or edema. No palpitations syncope lightheadedness. No polyuria polydipsia or hypoglycemia. No fever chills or sweats.Past, family, social, med, allergies, health maintenance, interim labs and imaging studies reviewed. Please refer to the EHR for details. Review of Systems Physical Exam Overweight. BP 130/60 (BP Location: Left arm, Patient Position: Sitting) Pulse 80 Resp 22 Ht 167.6 cm (5' 6 ) Wt 107.5 kg (237 lb) BMI 38.25 kg/m?? The head is atraumatic and normocephalic. Pupils are equal round and react to light and accommodation. Extraocular movements intact. Sclera white. Conjunctiva pink. Ears nose and throat clear mouth is moist. Neck is supple prep showed normal no adenopathy or thyromegaly. Chest clear to percussion auscultation. Heart S1-S2 regular no clear murmur gallop or rub. Abdomen flat soft nontender no mass.CVA negative, No clubbing cyanosis or rash. Alert oriented without focal neurolical abnormality. Sensation monofilament intact. Bilateral lower extremity pedal edema 1+. Assessment/Plan Diagnoses and all orders for this visit: 1. Type 2 diabetes mellitus with stage 3 chronic kidney disease, with long-term current use of insulin ([facility]) (Primary) - insulin glargine (LANTUS) 100 unit/mL (3 mL) insulin pen; Inject 0.44 mL (44 Units total) under the skin daily. 2. BMI 38.0-38.9,adult 3. Medication management 4. Essential hypertension - amLODIPine (NORVASC) 10 mg tablet; Take 0.5 tablets (5 mg total) by mouth daily. 5. Bilateral leg edema Comments: reduce amlodipine to 5mg Orders: - amLODIPine (NORVASC) 10 mg tablet; Take 0.5 tablets (5 mg total) by mouth daily. With the leg edema we reduced her amlodipine dose by 1/2 her insulin dose was adjusted. We discussed the patient's diabetes in detail. Potential long-term side effects of diabetes were discussed, including vision loss, renal failure, limb loss and increase macrovascular risk of heart attack, stroke, and cardiovascular We reviewed the progressive nature of diabetes. Targets were reviewed with the patient including fasting blood glucose, A1c, blood pressure, lipid control. We reviewed the need for annual eye examination, periodic foot examination and other assessments as indicated. Lifestyle modification including appropriate healthy eating, increased physical activity including aerobicand resistance exercises, and weight management were reviewed.The patient's elevated BMI was addressed. Recommended healthy eating and increase exercise as appropriate to the patient's medical condition abilities anticipating weight loss and improved BMI.Meds and interim labs reviewed. Polypharmacywithout evidence of adverse effects. Complex multiple diagnosis and medication regimen coordinated.Medical decision making complex. I discussed with the patient the indication for the diagnostic testing recommended and the patient confirmed understanding and requested that were proceed in this fashion. The patient was given an opportunity to ask all questions have all questions answered. The patient was advised to follow up with other independent marketing consultant healthcare personnel as recommended. Please refer [...] the test results online. Further directions as indicated. AL COORDINATOR documented in this encounter Plan of Treatment Not on file documented as of this encounter Procedures Procedure Name Priority Date/Time Associated Diagnosis Comments HEPATITIS C SCREENING Routine 12/13/2016 documented in this encounter Results * HEPATITIS C SCREENING (12/13/2016) HEP C Normal Comment:NEGATIVE Historical Provider HEALTH MAINTENANCE Final Result documented in this encounter Visit Diagnoses Diagnosis Type 2 diabetes mellitus with stage 3 chronic kidney disease, with long-term current use of insulin (HCC)- Primary BMI 38.0-38.9,adult Medication management Essential hypertension Unspecified essential hypertension Bilateral leg edema Edema documented in this encounter Discontinued Medications Medication Sig Discontinue Reason Start Date End Da te insulin glargine (LANTUS) 100 unit/mL (3 mL) insulin penIndications:type 2 diabetes mellitus Inject 48 Units under the skin daily. Reorder 03/31/2017 budesonide-formoterol (SYMBICORT) 160-4.5 mcg/actuation inhaler inhale 2 puff by inhalation route 2 times every day in the morning and evening 07/21/2015 03/31/2017 glimepiride (AMARYL) 4 mg tablet TAKE ONE TABLET BY MOUTH ONCE DAILY 07/04/2014 03/31/2017 olopatadine (PATADAY) 0.2 % ophthalmic solution instill 1 drop by ophthalmic route every day into affected eye(s) 09/18/2016 03/31/2017 simvastatin (ZOCOR) 40 mg tablet TAKE ONE TABLET BY MOUTH EVERY EVENING 06/28/2010 03/31/2017 traZODone (DESYREL) 50 mg tablet Take 1 tablet (50 mg total) by mouth nightly as needed for sleep. 12/27/2016 03/31/2017 amLODIPine (NORVASC) 10 mg tablet TAKE ONE TABLET BY MOUTH ONCE DAILY Reorder 07/18/2016 03/31/2017 insulin glargine (LANTUS) 100 unit/mL (3 mL) insulin penIndications:type 2 diabetes mellitus Inject 0.48 mL (48 Units total) under the skin daily. Reorder 03/31/2017 03/31/2017 documented as of this encounter Historical Medications * This list may reflect changes made after this encounter. insulin glargine (LANTUS) 100 unit/mL (3 mL) insulin penIndications:ty pe 2 diabetes mellitus Inject 48 Units under the skin daily. 03/31/2017 added in this encounter Care Teams Administrative Processor Relationship Specialty Start Date End Date Clayton Sandoval MD [address] [place] [address] PCP - General 10/11/16 08/02/19 documented as of this encounter
--- OUTSIDE RECORDS SUMMARY | 2024-07-11 22:41 | XMS_ITS | Encounter Summary ---
Author Organization [facility] Healthcare Address [address] [place] [address] Care Team Providers Care Corn Cutter Name Role Phone Clayton Sandoval MD Primary Care Provider + Encounter Details Date Type Department Care Team (Late st Contact Info) Description 11/04/2017 1:40 PM CDT Lab [address] [address] Clayton Sandoval MD [facility] [place] [address] Discharge Disposition: Discharge to home or self care Social History Tobacco Use Types Packs/Day Years Used Date Smoking Tobacco: Never Smokeless Tobacco: Never Alcohol Use Standard Drinks/Week Comments Yes 0 (1 standard drink = 0.6 oz pur e alcohol) Comments No Sex and Gender Information Value Date Recorded Sex Assigned at Not on file 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 PYLORI BREATH TEST Routine 11/04/2017 2:07 PM CDT URINALYSIS AND REFLEX TO MICROSCOPIC Routine 11/04/2017 1:47 PM CDT URINALYSIS, MICROSCOPIC ONLY Routine 11/04/2017 1:47 PM CDT LIPASE Routine 11/04/2017 1:41 PM CDT AMYLASE Routine 11/04/2017 1:41 PM CDT DISCHARGE LABORATORY CUMULATIVE REPORT 11/04/2017 12:00 AM CDT documented in this encounter Results * H. pylori breath test (11/04/2017 2:07 PM CDT) H. pylori, breath test Negative Negative [facility] ([place]) Comment: Result indicates the absence of current Helicobacter pylori infection. Test Performed by: [facility] [address] [place] [address] Breath 11/04/2017 2:07 PM CDT 11/04/2017 2:08 PM CDT Narrative [facility] ([place]) - 11/05/2017 1:41 PM CDT us Clayton Sandoval MD LAB BODY FLUIDS AND STOO LS ORDERABLES Final Result [facility] ([place]) [address] [facility] [place] [address] * (ABNORMAL) Urinalysis reflex to microscopic (11/04/2017 1:47 PM CDT) Color, ur Yellow Yellow [facility] ([place]) Clarity, ur Cloudy(A) Clear [facility] ([place]) Specific gravity, ur 1.019 1.010 - 1.025 [facility] ([place]) pH, urine 5.0 [facility] ([place]) Protein, ur ql 1+(A) Negative [facility] ([place]) Glucose, ur ql Negative Negative [facility] ([place]) Ketones, ur Negative Negative [facility] ([place]) Bilirubin, ur 1+(A) Negative [facility] ([place]) Blood, ur Negative Negative [facility] ([place]) Urobilinogen, ur 0.2 <2.0 mg/dL [facility] ([place]) Nitrite, ur Negative Negative [facility] ([place]) Leukocyte esterase, ur Trace(A) Negative [facility] ([place]) Urine 11/04/2017 1:47 PM CDT 11/04/2017 2:07 PM CDT Narrative [facility] ([place]) - 11/04/2017 2:20 PM CDT ?? Urine pH is affected by diet, medications, systemic acid-base disturbances, and renal tubular function. ??pH may affect urinary stone formation. ??For example, urine pH below 6.0 may help reduce the tendency for calcium phosphate stones and pH greater than 6.0 may reduce the tendency for uric acid stone formation. Source: [facility] [employer]. Last revised 07-24-2017 Clayton Sandoval MD LAB URINE ORDERABLES Fin al Result Performing Organization Address [facility] Co de Phone Number [facility] ([place]) [address] [place] [address] [place] [address] * (ABNORMAL) Urinalysis, microscopic only (11/04/2017 1:47 PM CDT) WBC, ur 6-10(A) 0 - 5 /HPF [facility] ([place]) RBC, ur 0-5 0 - 5 /HPF [facility] ([place]) Epithelial cells, squamous, ur 6-10(A) 0 - 5 /HPF [facility] ([place]) Comment:Suggestive of contam ination. Consider recollection by clean catch. Bacteria, ur 1+(A) [facility] ([place]) Hyaline casts, ur 1-5 0 - 10 /LPF [facility] ([place]) Urine 11/04/2017 1:47 PM CDT 11/04/2017 2:07 PM CDT Narrative [facility] ([place]) - 11/04/2017 2:20 PM CDT Clayton Sandoval MD LAB URINE ORDERABLES Fin al Result Performing Organization Address [facility]/ZIP Co de Phone Number [facility] ([place]) [address] [facility] [place] [address] * Lipase (11/04/2017 1:41 PM CDT) Lipase 19 10 - 99 Units/L [facility] ([place]) Blood specimen (specimen) 11/04/2017 1:41 PM CDT 11/04/2017 2:05 PM CDT Narrative [facility] ([place]) - 11/04/2017 2:27 PM CDT us Clayton Sandoval MD LAB BLOOD ORDERABLES Fin al Result Performing Organization Address City/[facility]/ZIP Co de Phone Number [facility] ([place]) [address] [facility] [place] [address] * Amylase (11/04/2017 1:41 PM CDT) Amylase 50 30 - 99 Units/L [facility] ([place]) Blood specimen (specimen) 11/04/2017 1:41 PM CDT 11/04/2017 2:05 PM CDT Narrative [facility] ([place]) - 11/04/2017 2:27 PM CDT us Clayton Sandoval MD LAB BLOOD ORDERABLES Fin al Result Performing Organization Address City/[facility]/ZIP Co de Phone Number [facility] ([place]) [address] [facility] [place] [address] * DISCHARGE LABORATORY CUMULATIVE REPORT (11/04/2017 12:00 AM CDT) Narrative 11/04/2017 12:00 AM CDT Ordered by an unspecified provider. Historical Provider LAB BLOOD ORDERABLES Jessica l Result documented in this encounter Visit Diagnoses Not on filedocumented in this encounter Care Teams Corn Cutter Relationship Specialty Start Date End Date Clayton Sandoval MD [address] [place] [address] PCP - General 10/11/16 08/02/19 documented as of this encounter
--- OUTSIDE RECORDS SUMMARY | 2024-07-11 22:42 | XMS_ITS | Encounter Summary ---
Author Organization [facility] Healthcare Address [address] [place] [address] Care Team Providers Care Road Sign Installer Name Role Phone Clayton Sandoval MD Primary Care Provider + Encounter Details Date Type Department Care Team (Late st Contact Info) Description 07/26/2015 1:19 PM CHEMIST PHYSICAL - 07/26/2015 11:59 PM CHEMIST PHYSICAL Hospital Encounter [facility] Diaz, Manoj Hernandez MD [address] [place] [address] Closed displaced intertrochanteric fracture of left femur with routine healing; Exposure to other specified factors, subsequent encounter Social History Tobacco Use Types Packs/Day Years Used Date Smoking Tobacco: Never Alcohol Use Standard Drinks/Week Comments Yes 0 (1 standard drink = 0.6 oz pur e alcohol) Comments Unknown Sex and Gender Information Value Date Recorded Sex Assigned at Not on file Legal Sex Female 11:52 PM CHEMIST PHYSICAL Gender Identity Not on file Sexual Orientation Not on file documented as of this encounter Medications at Time of Discharge blood-glucose meter (CONTOUR NEXT USB METER) misc test as directed 1 each 0 07/04/2014 lancets (MICROLET LANCET) misc test by fingerstick route 3 times daily 300 each 3 07/26/2015 blood glucose diagnostic (CONTOUR NEXT STRIPS) strip [...] individualization. 0 vial 0 07/21/2015 7 insulin lispro (HumaLOG KwikPen) 100 unit/mL [...] in the evening 0 0 07/21/[address] (PROTONIX) 40 mg EC [...] 06/21/2013 2 documented as of this encounter Plan of Treatment Not on file documented as of this encounter Procedures Procedure Name Priority Date/Time Associated Diagnosis Comments XR FEMUR 1 VW Routine 07/26/2015 1:50 PM CHEMIST PHYSICAL documented in this encounter Results * XR Femur 1 VW (07/26/2015 1:50 PM CHEMIST PHYSICAL) Anatomical Region Laterality Modality N/A Radiographic Pamela ging 07/26/2015 1:50 PM CHEMIST PHYSICAL Narrative 07/26/2015 3:55 PM CHEMIST PHYSICAL XR Femur L ?[id number] ??Acc#: ??[id number] DATE OF EXAM: ??Jul 26 2015 CLINICAL HISTORY: Followup femur fracture, status post ORIF. RESULT: AP and lateral views of the left femur were obtained. ??Correlation with radiographs of the left hip from 06/27/15 and 07/11/15 are made. ??An internally stabilized intertrochanteric left femur fracture is seen. ??No significant hardware loosening is noted. ??The fracture remains relatively stable in position and alignment. ??Healing reaction is not yet identified. ??A left knee prosthesis is stable in appearance. IMPRESSION: 1. ??INTERNALLY STABILIZED INTERTROCHANTERIC LEFT FEMUR FRACTURE WHICH IS UNCHANGED IN POSITION OR ALIGNMENT. 2. ??LEFT TOTAL KNEE PROSTHESIS REMAIN STABLE IN APPEARANCE. Interpreting Physician: ??DEBORAH KIM M.D. ??Read on: ??Jul 26 2015 1:56P Transcribed by: ??[facility] ??On: Jul 26 2015 ??3:14P Approved Electronically by: ??DEBORAH KIM M.D. ??on: ??Jul 26 2015 3:55P Attending: ??MANOJ DIAZ Requesting: ??DR MANOJ DIAZ Requesting Fax: ??[phone] Attending Fax: ??-- Attending ID: ??[id number] Requesting ID: ??[id number] Report To 1 ID: ??[id number] Report To 1 Name: ??MANOJ DIAZ Report To 1 FAX: ??-- NextGen Order #: Procedure Note Provider, MD Sofiya - 11/07/2016 XR Femur L [id number] Acc#: [id number] DATE OF EXAM: Jul 26 2015 CLINICAL HISTORY: Followup femur fracture, status post ORIF. RESULT: AP and lateral views of the left femur were obtained. Correlation withradiographs of the left hip from 06/27/15 and 07/11/15 are made. Aninternally stabilized intertrochanteric left femur fracture is seen. Nosignificant hardware loosening is noted. The fracture remains relativelystable in position and alignment. Healing reaction is not yet identified.A left knee prosthesis is stable in appearance. IMPRESSION: 1. INTERNALLY STABILIZED INTERTROCHANTERIC LEFT FEMUR FRACTURE WHICH ISUNCHANGED IN POSITION OR ALIGNMENT. 2. LEFT TOTAL KNEE PROSTHESIS REMAIN STABLE IN APPEARANCE. Interpreting Physician: DEBORAH KIM M.D. Read on: Jul 26 20151:[id number] Transcribed by: [facility] On: Jul 26 2015 3:14P Approved Electronically by: DEBORAH KIM M.D. on: Jul 26 20153:55P Attending: MANOJ DIAZ Requesting: DR MANOJ DIAZ Requesting Attending Fax: -- Attending ID: [id number] Requesting ID: [id number] Report To 1 ID: [id number] Report To 1 Name: MANOJ DIAZ Report To 1 FAX: -- NextGen Order #: us Historical Provider IMAriel XR PROCEDURES Final R esult documented in this encounter Visit Diagnoses Diagnosis Closed displaced intertrochanteric fracture of left femur with routine healing Exposure to other specified factors, subsequent encounter documented in this encounter Care Teams Road Sign Installer Relationship Specialty Start Date End Date Clayton Sandoval MD [address] [place] [address] PCP - General 09/30/12 09/26/16 documented as of this encounter
--- OUTSIDE RECORDS SUMMARY | 2024-07-11 22:42 | XMS_ITS | Encounter Summary ---
Author Organization [facility] Healthcare Address [address] [place] [address] Care Team Providers Care Trouble Locator Test Desk Name Role Phone Clayton Sandoval MD Primary Care Provider + Encounter Details Date Type Department Care Team (Late st Contact Info) Description 02/07/2016 11:10 AM CDT - 02/17/2016 10:15 AM T Hospital Encounter [facility] Clayton Wyman MD [address] [place] [address] Breakdown (mechanical) of other bone devices, implants and grafts, initial encounter (HCC); Age-related osteoporosis with current pathological fracture; Type 2 diabetes mellitus with hypoglycemia without coma (CMS/HCC); Sarcoidosis (CMS/HCC); Polyneuropathy (CMS/HCC); Other surgical procedures as the cause of abnormal reaction of the patient, or of later complication, without mention of misadventure at the time of the procedure; Unspecified place or not applicable; Medical procedure, unspecified as the cause of abnormal reaction of the patient, or of later complication, without mention of misadventure at the time of the procedure; Constipation; Anemia; Hyperlipidemia; Essential (primary) hypertension; 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 terminal and repeater current use of insulin (CMS/HCC); Presence of left artificial hip joint Social History Tobacco Use Types Packs/Day Years Used Date Smoking Tobacco: Never Alcohol Use Standard Drinks/Week Comments Yes 0 (1 standard drink = 0.6 oz pur e alcohol) Comments Unknown Sex and Gender Information Value Date Recorded Sex Assigned at Not on file 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 Gender Identity Not on file Sexual Orientation Not on file documented as of this encounter Last Filed Vital Signs Vital Sign Reading Time Taken Comments Blood Pressure 119/39 02/17/2016 8:00 AM CDT Pulse 72 02/17/2016 8:51 AM CDT Temperature - - Respiratory Rate - - Oxygen Saturation - - Inhaled Oxygen Concentration - - Weight 106.5 kg (234 lb 12.6 oz) 02/14/2016 3:00 PM CDT Height 167.6 cm (5' 5.98 ) 02/14/2016 3:00 PM CD T Body Mass Index 37.91 02/14/2016 3:00 PM CDT documented in this encounter Discharge Summaries * Provider, MD Sofiya - 02/17/2016 12:00 AM CDT DISCHARGE SUMMARY Patient: SUSANA RENTERIA Account: [id number] Room No: 101-01 : 1950 Patient Type: IP Attend.: Clayton Sandoval M.D. Admit Date: 02/07/2016 Dict.: Clayton Sandoval M.D. Disch. 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 PRIMARY PROCEDURE Left conversion total hip arthroplasty. SECONDARY DIAGNOSES Type 2 diabetes mellitus with hypoglycemia. Osteoporosis. Colonic polyposis. Sarcoidosis. Peripheral neuropathy. Hypertension. Type 2 diabetes. Anemia. Dyslipidemia. DISCHARGE MEDICATIONS Please see the discharge med reconciliation list. The patient has home health, PT, OT, RN. I will see back in office in followup in 2 weeks. She is to follow up with Dr. Sykes, surgeon, her surgeon. CLINICAL RESUME Patient was admitted to the [facility] for subacute care for ongoing post total hip arthroplasty rehabilitation, physical therapy, occupational therapy, strength and balance. Her course was interrupted by an episode of hypoglycemia. Glimepiride was discontinued and insulin dose reduced following which blood sugars remained reasonably well controlled. Patient discharged improved in stable condition to continue physical therapy, occupational therapy as an outpatient with medication adjustment per discharge med reconciliation, following up in 1 week to 2 weeks with me in the office. Electronically Authenticated by: Clayton Sandoval MD On 02/18/2016 10:34 AM CDT Clayton Sandoval M.D. ELIDA/jacob TD: 02/17/2016 16:45 documented in this encounter Medications at Time [...] hours as needed 40 0 09/01/2015 7 ascorbic acid, vitamin C, (VITAMIN C) [...] as needed 60 2 06/21/2013 2 zoledronic hpmd-rqvqclsu-x ater (RECLAST) 5 mg/100 mL piggyback tud 1 Syringe 0 08/14/2015 0 zoledronic yexv-shqzqlur-i ater (RECLAST) 5 mg/100 mL piggyback tud 1 Syringe 0 08/14/2015 7 documented as of this encounter H&P Notes * Provider, MD Sofiya - 02/07/2016 12:00 AM CDT HISTORY AND PHYSICAL Patient: SUSANA RENTERIA Account: [id number] Room No: 101-01 : 1950 Patient Type: IP Attend.: Clayton Sandoval M.D. Admit Date: 02/07/2016 Dict.: Clayton Sandoval M.D. Disch. Date: Mrs. Tsang is a 65-year-old white female admitted to the [facility] for subacute care following a left conversion total hip arthroplasty following a failed left long Gamma Nail with nonunion and collapse and acetabular erosion. CURRENT MEDICAL PROBLEMS Constipation and anemia. BACKGROUND MEDICAL PROBLEMS Dyslipidemia. Osteoporosis with hip fracture. Adenomatous colonic polyposis. Sarcoidosis. Peripheral neuropathy. Hypertension. Type 2 diabetes mellitus. Anemia. USUAL HOME MEDICATIONS 1. Celebrex. 2. Flonase. 3. Gabapentin. 4. Glimepiride. 5. Humalog. 6. Irbesartan. 7. Hydrochlorothiazide. 8. Iron. 9. Lantus. 10. Metformin. 11. Pantoprazole. 12. Simvastatin. 13. Singulair. 14. Tramadol. Her hospital med list was reviewed. ALLERGIES OR INTOLERANCE CLAIMED TO HYDROCODONE CAUSING HEADACHE. SOCIAL . visiting today. Never smoked. Rare alcohol. No children. FAMILY HISTORY Lymphoma, diabetes, heart disease, heart failure, hypertension. SYSTEM REVIEW She has not had a bowel movement since last Friday. She has responded to laxative therapy. She has been passing gas but no stool. There has been no nausea, vomiting, abdominal pain. She states that she is recovering nicely from the hip but has trouble with stairs and is working with Physical Therapy. Blood sugars have been reasonably well controlled. No other complaints offered. PHYSICAL EXAM A white female with stated age who appears otherwise in no acute distress. Temp 98.4, pulse 88, regular. Respirations 18, unlabored. Blood pressure 120/58. Head: Atraumatic, normocephalic. Pupils react to light and accommodation. Scleral anicteric. Conjunctivae pink. Nose, throat clear. Mouth moist. Neck: Supple. Carotid upstroke with no bruits. Neck veins are flat. Chest: Clear. Heart sounds normal, regular. Abdomen: Obese, soft, nontender. CVA negative. Extremities: No clubbing, stenosis, or edema. No rash. No arthritis. Wound bandaged over the left hip unremarkable. IMPRESSION Constipation, anemia, type 2 diabetes, hypertension, sarcoidosis, colonic polyposis, osteoporosis with pathological fracture, failed nail and now with total hip arthroplasty. RECOMMENDATIONS Continue physical therapy, occupational therapy. Will monitor her diabetes and her anemia and will treat her constipation with . Further evaluation pending. Electronically Authenticated by: Clayton Sandoval MD On 02/11/2016 06:54 PM CDT Clayton Sandoval M.D. /[facility] TD: 02/09/2016 15:37 documented in this encounter Plan of Treatment Not on file documented as of this encounter Procedures Procedure Name Priority Date/Time Associated Diagnosis Comments BLOOD GLUCOSE, POC Routine 02/17/2016 6: 28 AM CDT DISCHARGE LABORATORY CUMULATIVE REPORT 02/17/2016 BLOOD GLUCOSE, POC Routine 02/16/2016 8: 13 PM CDT BLOOD GLUCOSE, POC Routine 02/16/2016 5: 24 PM CDT BLOOD GLUCOSE, POC Routine 02/16/2016 11 :28 AM CDT BLOOD GLUCOSE, POC Routine 02/16/2016 6: 32 AM CDT BLOOD GLUCOSE, POC Routine 02/15/2016 8: 07 PM CDT BLOOD GLUCOSE, POC Routine 02/15/2016 5: 19 PM CDT BLOOD GLUCOSE, POC Routine 02/15/2016 11 :55 AM CDT BLOOD GLUCOSE, POC Routine 02/15/2016 6: 30 AM CDT BLOOD GLUCOSE, POC Routine 02/14/2016 8: 16 PM CDT BLOOD GLUCOSE, POC Routine 02/14/2016 5: 27 PM CDT BLOOD GLUCOSE, POC Routine 02/14/2016 12 :44 PM CDT BLOOD GLUCOSE, POC Routine 02/14/2016 11 :55 AM CDT BLOOD GLUCOSE, POC Routine 02/14/2016 11 :42 AM CDT BLOOD GLUCOSE, POC Routine 02/14/2016 11 :41 AM CDT BLOOD GLUCOSE, POC Routine 02/14/2016 6: 28 AM CDT BLOOD GLUCOSE, POC Routine 02/13/2016 8: 42 PM CDT BLOOD GLUCOSE, POC Routine 02/13/2016 5: 32 PM CDT BLOOD GLUCOSE, POC Routine 02/13/2016 1: 01 PM CDT BLOOD GLUCOSE, POC Routine 02/13/2016 11 :40 AM CDT BLOOD GLUCOSE, POC Routine 02/13/2016 6: 51 AM CDT SERUM RENAL PANEL Routine 02/13/2016 5:5 6 AM CDT SERUM ESTIMATED GLOMERULAR FILTRATION RATE Routine 02/13/2016 5:56 AM CDT BLOOD CELL COUNT (CBC) Routine 02/13/2016 5:56 AM CDT BLOOD CELL MORPHOLOGIC EXAM Routine 02/13/2016 5:56 AM CDT BLOOD GLUCOSE, POC Routine 02/12/2016 10 :44 PM CDT BLOOD GLUCOSE, POC Routine 02/12/2016 9: 39 PM CDT BLOOD GLUCOSE, POC Routine 02/12/2016 5: 20 PM CDT BLOOD GLUCOSE, POC Routine 02/12/2016 11 :22 AM CDT BLOOD GLUCOSE, POC Routine 02/12/2016 6: 33 AM CDT BLOOD GLUCOSE, POC Routine 02/11/2016 9: 17 PM CDT BLOOD GLUCOSE, POC Routine 02/11/2016 5: 23 PM CDT BLOOD GLUCOSE, POC Routine 02/11/2016 11 :43 AM CDT BLOOD GLUCOSE, POC Routine 02/11/2016 8: 32 AM CDT BLOOD GLUCOSE, POC Routine 02/11/2016 6: 41 AM CDT BLOOD GLUCOSE, POC Routine 02/10/2016 9: 01 PM CDT BLOOD GLUCOSE, POC Routine 02/10/2016 5: 49 PM CDT BLOOD GLUCOSE, POC Routine 02/10/2016 11 :44 AM CDT SERUM RENAL PANEL Routine 02/10/2016 5:0 2 AM CDT SERUM ESTIMATED GLOMERULAR FILTRATION RATE Routine 02/10/2016 5:02 AM CDT BLOOD CELL COUNT (CBC) Routine 02/10/2016 5:02 AM CDT BLOOD CELL MORPHOLOGIC EXAM Routine 02/10/2016 5:02 AM CDT BLOOD GLUCOSE, POC Routine 02/09/2016 8: 40 PM CDT BLOOD GLUCOSE, POC Routine 02/09/2016 5: 28 PM CDT BLOOD GLUCOSE, POC Routine 02/09/2016 11 :41 AM CDT BLOOD GLUCOSE, POC Routine 02/09/2016 6: 45 AM CDT BLOOD GLUCOSE, POC Routine 02/08/2016 8: 42 PM CDT BLOOD GLUCOSE, POC Routine 02/08/2016 5: 31 PM CDT BLOOD GLUCOSE, POC Routine 02/08/2016 11 :59 AM CDT BLOOD GLUCOSE, POC Routine 02/08/2016 6: 35 AM CDT BLOOD HEMOGLOBIN, HEMATOCRIT Routine 02/08/2016 5:42 AM CDT BLOOD GLUCOSE, POC Routine 02/07/2016 9: 14 PM CDT BLOOD GLUCOSE, POC Routine 02/07/2016 5: 29 PM CDT BLOOD GLUCOSE, POC Routine 02/07/2016 11 :55 AM CDT documented in this encounter Results * Blood glucose, POC (02/17/2016 6:28 AM CDT) Glucose, POC, bld 89 71 - 98 mg/dl CDR HISTORICAL RESULTS Blood specimen (specimen) 02/17/2016 6:28 AM CDT Clayton Sandoval MD LAB BLOOD ORDERABLES Fin al Result CDR HISTORICAL RESULTS * DISCHARGE LABORATORY CUMULATIVE REPORT (02/17/2016) Narrative 02/17/2016 Ordered by an unspecified provider. Historical Provider LAB BLOOD ORDERABLES Jessica l Result * (ABNORMAL) Blood glucose, POC (02/16/2016 8:13 PM CDT) Glucose, POC, bld 169(H) 71 - 98 mg/dl CDR HISTORICAL RESULTS Blood specimen (specimen) 02/16/2016 8:13 PM CDT Clayton Sandoval MD LAB BLOOD ORDERABLES Fin al Result CDR HISTORICAL RESULTS * (ABNORMAL) Blood glucose, POC (02/16/2016 5:24 PM CDT) Glucose, POC, bld 131(H) 71 - 98 mg/dl CDR HISTORICAL RESULTS Blood specimen (specimen) 02/16/2016 5:24 PM CDT Clayton Sandoval MD LAB BLOOD ORDERABLES Fin al Result Performing Organization Address [facility] de Phone Number CDR HISTORICAL RESULTS * (ABNORMAL) Blood glucose, POC (02/16/2016 11:28 AM CDT) Glucose, POC, bld 119(H) 71 - 98 mg/dl CDR HISTORICAL RESULTS Blood specimen (specimen) 02/16/2016 11:28 AM CDT Clayton Sandoval MD LAB BLOOD ORDERABLES Fin al Result Performing Organization Address [facility] de Phone Number CDR HISTORICAL RESULTS * Blood glucose, POC (02/16/2016 6:32 AM CDT) Glucose, POC, bld 95 71 - 98 mg/dl LAB [place] 88 Blood specimen (specimen) 02/16/2016 6:32 AM CDT Clayton Sandoval MD LAB BLOOD ORDERABLES Fin al Result Performing Organization Address [facility] de Phone Number LAB [place] 88 * Blood glucose, POC (02/15/2016 8:07 PM CDT) Glucose, POC, bld 91 71 - 98 mg/dl LAB [place] 88 Blood specimen (specimen) 02/15/2016 8:07 PM CDT Clayton Sandoval MD LAB BLOOD ORDERABLES Fin al Result Performing Organization Address [facility] Co de Phone Number LAB [place] 88 * (ABNORMAL) Blood glucose, POC (02/15/2016 5:19 PM CDT) Glucose, POC, bld 246(H) 71 - 98 mg/dl LAB [place] 88 Blood specimen (specimen) 02/15/2016 5:19 PM CDT Clayton Sandoval MD LAB BLOOD ORDERABLES Fin al Result Performing Organization Address [facility] de Phone Number LAB [place] 88 * Blood glucose, POC (02/15/2016 11:55 AM CDT) Glucose, POC, bld 82 71 - 98 mg/dl LAB [place] 88 Blood specimen (specimen) 02/15/2016 11:55 AM CDT Clayton Sandoval MD LAB BLOOD ORDERABLES Fin al Result Performing Organization Address [facility] Phone Number LAB [place] 88 * Blood glucose, POC (02/15/2016 6:30 AM CDT) Glucose, POC, bld 87 71 - 98 mg/dl LAB [place] 88 Blood specimen (specimen) 02/15/2016 6:30 AM CDT Clayton Sandoval MD LAB BLOOD ORDERABLES Fin al Result Performing Organization Address [facility] Phone Number LAB [place] [facility] * (ABNORMAL) Blood glucose, POC (02/14/2016 8:16 PM CDT) Glucose, POC, bld 136(H) 71 - 98 mg/dl LAB [place] 88 Blood specimen (specimen) 02/14/2016 8:16 PM CDT Clayton Sandoval MD LAB BLOOD ORDERABLES Fin al Result Performing Organization Address [facility] de Phone Number LAB [place] [facility] * (ABNORMAL) Blood glucose, POC (02/14/2016 5:27 PM CDT) Glucose, POC, bld 167(H) 71 - 98 mg/dl LAB [place] 88 Blood specimen (specimen) 02/14/2016 5:27 PM CDT Clayton Sandoval MD LAB BLOOD ORDERABLES Fin al Result LAB [place] [facility] * (ABNORMAL) Blood glucose, POC (02/14/2016 12:44 PM CDT) [facility] Glucose, POC, bld 175(H) 71 - 98 mg/dl LAB [place] 88 Blood specimen (specimen) 02/14/2016 12:44 PM CDT Clayton Sandoval MD LAB BLOOD ORDERABLES Fin al Result Performing Organization Address [facility]/ZIP Co de Phone Number LAB [place] [facility] * (ABNORMAL) Blood glucose, POC (02/14/2016 11:55 AM CDT) [facility] Glucose, POC, bld 61(L) 71 - 98 mg/dl LAB [place] 88 Blood specimen (specimen) 02/14/2016 11:55 AM CDT Clayton Sandoval MD LAB BLOOD ORDERABLES Fin al Result Performing Organization Address [facility]/ZIP Co de Phone Number LAB [place] [facility] * (ABNORMAL) Blood glucose, POC (02/14/2016 11:42 AM CDT) [facility] Glucose, POC, bld 59(L) 71 - 98 mg/dl LAB [place] [facility] Comment: Glu2: Will Repeat Test RN/MD Notified Blood specimen (specimen) 02/14/2016 11:42 AM CDT Clayton Sandoval MD LAB BLOOD ORDERABLES Fin al Result Performing Organization Address [place]/[facility]/ZIP Co de Phone Number LAB [place] [facility] * (ABNORMAL) Blood glucose, POC (02/14/2016 11:41 AM CDT) [facility] Glucose, POC, bld 57(L) 71 - 98 mg/dl LAB [place] 88 Comment:Glu2: Will Repeat Te st Blood specimen (specimen) 02/14/2016 11:41 AM CDT Clayton Sandoval MD LAB BLOOD ORDERABLES Fin al Result Performing Organization Address [place]/[facility]/ZIP Co de Phone Number LAB [place] [facility] * (ABNORMAL) Blood glucose, POC (02/14/2016 6:28 AM CDT) Glucose, POC, bld 101(H) 71 - 98 mg/dl LAB [place] 88 Blood specimen (specimen) 02/14/2016 6:28 AM CDT Clayton Sandoval MD LAB BLOOD ORDERABLES Fin al Result Performing Organization Address [facility]/ZIP Co de Phone Number LAB [place] [facility] * Blood glucose, POC (02/13/2016 8:42 PM CDT) Glucose, POC, bld 92 71 - 98 mg/dl LAB [place] 88 Blood specimen (specimen) 02/13/2016 8:42 PM CDT Clayton Sandoval MD LAB BLOOD ORDERABLES Fin al Result Performing Organization Address [facility] Co de Phone Number LAB [place] [facility] * (ABNORMAL) Blood glucose, POC (02/13/2016 5:32 PM CDT) Glucose, POC, bld 127(H) 71 - 98 mg/dl [facility] [place] 88 Blood specimen (specimen) 02/13/2016 5:32 PM CDT Clayton Sandoval MD LAB BLOOD ORDERABLES Fin al Result Performing Organization Address [place]/[facility]/ZIP Co de Phone Number LAB [place] [facility] * (ABNORMAL) Blood glucose, POC (02/13/2016 1:01 PM CDT) Glucose, POC, bld 170(H) 71 - 98 mg/dl LAB [place] 88 Blood specimen (specimen) 02/13/2016 1:01 PM CDT Clayton Sandoval MD LAB BLOOD ORDERABLES Fin al Result Performing Organization Address [facility] de Phone Number LAB [place] [facility] * (ABNORMAL) Blood glucose, POC (02/13/2016 11:40 AM CDT) Glucose, POC, bld 64(L) 71 - 98 mg/dl CDR HISTORICAL RESULTS Blood specimen (specimen) 02/13/2016 11:40 AM CDT Clayton Sandoval MD LAB BLOOD ORDERABLES Fin al Result Performing Organization Address [facility] de Phone Number CDR HISTORICAL RESULTS * (ABNORMAL) Blood glucose, POC (02/13/2016 6:51 AM CDT) Pathologist [facility] Glucose, POC, bld 129(H) 71 - 98 mg/dl CDR HISTORICAL RESULTS Blood specimen (specimen) 02/13/2016 6:51 AM CDT Clayton Sandoval MD LAB BLOOD ORDERABLES Fin al Result Performing Organization Address [facility] de Phone Number CDR HISTORICAL RESULTS * (ABNORMAL) Serum renal panel (02/13/2016 5:56 AM CDT) Pathologist [facility] Sodium 136 135 - 145 mmol/L CDR HISTORICAL RESULTS K, pl 4.5 3.5 - 5.1 mmol/L CDR HISTORICAL RESULTS Chloride 100 97 - 110 mmol/L CDR HISTORICAL RESULTS CO2 27 22 - 32 mmol/L CDR HISTORICAL RESULTS A. gap 14 8 - 16 mmol/L CDR HISTORICAL RESULTS Glucose 130 70 - 199 mg/dl CDR HISTORICAL RESULTS Comment: Interpretive Data Note:The glucose is assumed non fasting Fastin-99 mg/dL Random: ??70-199 mg/dL Either a fasting glucose > 126 mg/dL or a random glucose > 200 mg/dL plus symptoms is diagnostic of diabetes when confirmed on another day. Fasting values > 100 mg/dL but < 125 mg/dL are diagnostic of impaired fasting glucose. Current interpretive data was last revised on 2014. BUN 16.3 8.0 - 25.0 mg/dl CDR HISTORICAL RESULTS Creatinine 1.07 0.60 - 1.10 mg/dl CDR HISTORICAL RESULTS BUN/creat ratio 15 10 - 20 CDR HISTORICAL RESULTS Calcium 8.7 8.6 - 10.2 mg/dl CDR HISTORICAL RESULTS Phosphorus, pl 4.2 2.5 - 4.5 mg/dl CDR HISTORICAL RESULTS Alb 2.9(L) 3.6 - 5.0 g/dl CDR HISTORICAL RESULTS Serum 02/13/2016 5:56 AM CDT Historical Provider LAB BLOOD ORDERABLES Jessica reynolds Result Performing Organization Address [facility] Co de Phone Number CDR HISTORICAL RESULTS * (ABNORMAL) Blood cell count (CBC) (02/13/2016 5:56 AM CDT) WBC 8.5 3.8 - 9.8 K/cumm CDR HISTORICAL RESULTS RBC 2.59(L) 3.90 - 5.00 M/cumm CDR HISTORICAL RESULTS Hgb 7.4(L) 12.1 - 15.1 g/dl CDR HISTORICAL RESULTS Hct 23.2(L) 36.1 - 44.3 % CDR HISTORICAL RESULTS MCV 89.6 80.0 - 100.0 fl CDR HISTORICAL RESULTS MCH 28.6 26.7 - 33.7 pg CDR HISTORICAL RESULTS MCHC 31.9(L) 32.7 - 36.0 g/dl CDR HISTORICAL RESULTS Rdw 16.5(H) 11.5 - 14.6 % CDR HISTORICAL RESULTS Platelets 236 140 - 440 K/cumm CDR HISTORICAL RESULTS MPV 9.5 8.0 - 12.0 fl CDR HISTORICAL RESULTS NRBC 0.0 0.0 - 0.0 % CDR HIST ORICAL RESULTS NRBC, abs 0.00 0.00 - 0.00 K/cumm CDR HISTORICAL RESULTS Blood specimen (specimen) 02/13/2016 5:56 AM CDT Historical Provider LAB BLOOD ORDERABLES Jessica reynolds Result CDR HISTORICAL RESULTS * Blood cell morphologic exam (02/13/2016 5:56 AM CDT) Neutrophils 63.1 44.0 - 80.0 % CDR HISTORICAL RESULTS Immature granulocytes 0.6 0.0 - 1.0 % CDR HISTORICAL RESULTS Lymphocytes 23.7 13.0 - 44.0 % CDR HISTORICAL RESULTS Monos 9.0 2.0 - 11.0 % CDR HISTORICAL RESULTS Eosinophils 3.1 0.0 - 6.0 % CDR HISTORICAL RESULTS Basophils 0.5 0.0 - 3.0 % CDR HISTORICAL RESULTS Neutrophils, abs 5.4 1.6 - 7.0 K/cumm CDR HISTORICAL RESULTS Immature granulocyte, abs 0.0 0.0 - 0.2 K/cumm CDR HISTORICAL RESULTS Lymphocytes, abs 2.0 0.5 - 4.3 K/cumm CDR HISTORICAL RESULTS Monocytes, absolute 0.8 0.1 - 1.0 K/cumm CDR HISTORICAL RESULTS Eosinophils, abs 0.3 0.0 - 0.6 K/cumm CDR HISTORICAL RESULTS Basophils, abs 0.0 0.0 - 0.3 K/cumm CDR HISTORICAL RESULTS Blood specimen (specimen) 02/13/2016 5:56 AM CDT us Historical Provider LAB BLOOD ORDERABLES Jessica reynolds Result CDR HISTORICAL RESULTS * Serum estimated glomerular filtration rate (02/13/2016 5:56 AM CDT) eGFR 54 ml/min/1.7 3 m2 CDR HISTORICAL RESULTS Comment: Interpretation of Estimated GFR (eGFR): Normal ?>/= 60 mL/min/1.73m2 Possible Chronic Kidney Disease ??15 - 59 mL/min/1.73m2 Possible Kidney Failure ?< 15 ??mL/min/1.73m2 If -[place] multiply value by 1.16. ??Estimated glomerular filtration rate is determined by the CKD-EPI equation recommended by the National Kidney Foundation (KDIGO 2012 Clinical Practice Guideline for the Evaluation and Management of Chronic Kidney Disease. ??Kidney Intnl Suppl Jul 2012;3:1). ??The CKD-EPI equation should not be used in acute renal failure or acute kidney injury and is not valid in children. Serum 02/13/2016 5:56 AM CDT Historical Provider LAB BLOOD ORDERABLES Jessica l Result Performing Organization Address [facility] de Phone Number CDR HISTORICAL RESULTS * (ABNORMAL) Blood glucose, POC (02/12/2016 10:44 PM CDT) Glucose, POC, bld 171(H) 71 - 98 mg/dl CDR HISTORICAL RESULTS Blood specimen (specimen) 02/12/2016 10:44 PM CDT Clayton Sandoval MD LAB BLOOD ORDERABLES Fin al Result Performing Organization Address [facility] de Phone Number CDR HISTORICAL RESULTS * Blood glucose, POC (02/12/2016 9:39 PM CDT) Glucose, POC, bld 72 71 - 98 mg/dl CDR HISTORICAL RESULTS Blood specimen (specimen) 02/12/2016 9:39 PM CDT Clayton Sandoval MD LAB BLOOD ORDERABLES Fin al Result Performing Organization Address [facility] de Phone Number CDR HISTORICAL RESULTS * (ABNORMAL) Blood glucose, POC (02/12/2016 5:20 PM CDT) Glucose, POC, bld 151(H) 71 - 98 mg/dl CDR HISTORICAL RESULTS Blood specimen (specimen) 02/12/2016 5:20 PM CDT Clayton Sandoval MD LAB BLOOD ORDERABLES Fin al Result Performing Organization Address [facility]/ZIP Co de Phone Number CDR HISTORICAL RESULTS * Blood glucose, POC (02/12/2016 11:22 AM CDT) Glucose, POC, bld 90 71 - 98 mg/dl CDR HISTORICAL RESULTS Blood specimen (specimen) 02/12/2016 11:22 AM CDT Clayton Sandoval MD LAB BLOOD ORDERABLES Fin al Result Performing Organization Address [facility] de Phone Number CDR HISTORICAL RESULTS * (ABNORMAL) Blood glucose, POC (02/12/2016 6:33 AM CDT) Glucose, POC, bld 107(H) 71 - 98 mg/dl CDR HISTORICAL RESULTS Blood specimen (specimen) 02/12/2016 6:33 AM CDT Clayton Sandoval MD LAB BLOOD ORDERABLES Fin al Result Performing Organization Address [facility] de Phone Number CDR HISTORICAL RESULTS * (ABNORMAL) Blood glucose, POC (02/11/2016 9:17 PM CDT) Glucose, POC, bld 192(H) 71 - 98 mg/dl CDR HISTORICAL RESULTS Blood specimen (specimen) 02/11/2016 9:17 PM CDT Clayton Sandoval MD LAB BLOOD ORDERABLES Fin al Result Performing Organization Address [facility] de Phone Number CDR HISTORICAL RESULTS * (ABNORMAL) Blood glucose, POC (02/11/2016 5:23 PM CDT) Glucose, POC, bld 134(H) 71 - 98 mg/dl CDR HISTORICAL RESULTS Blood specimen (specimen) 02/11/2016 5:23 PM CDT Clayton Sandoval MD LAB BLOOD ORDERABLES Fin al Result Performing Organization Address [facility] Co de Phone Number CDR HISTORICAL RESULTS * (ABNORMAL) Blood glucose, POC (02/11/2016 11:43 AM CDT) Glucose, POC, bld 103(H) 71 - 98 mg/dl CDR HISTORICAL RESULTS Blood specimen (specimen) 02/11/2016 11:43 AM CDT Clayton Sandoval MD LAB BLOOD ORDERABLES Fin al Result Performing Organization Address [facility] Children de Phone Number CDR HISTORICAL RESULTS * (ABNORMAL) Blood glucose, POC (02/11/2016 8:32 AM CDT) Glucose, POC, bld 251(H) 71 - 98 mg/dl CDR HISTORICAL RESULTS Blood specimen (specimen) 02/11/2016 8:32 AM CDT Clayton Sandoval MD LAB BLOOD ORDERABLES Fin al Result Performing Organization Address [facility] de Phone Number CDR HISTORICAL RESULTS * Blood glucose, POC (02/11/2016 6:41 AM CDT) Glucose, POC, bld 92 71 - 98 mg/dl CDR HISTORICAL RESULTS Blood specimen (specimen) 02/11/2016 6:41 AM CDT Clayton Sandoval MD LAB BLOOD ORDERABLES Fin al Result Performing Organization Address [facility] de Phone Number CDR HISTORICAL RESULTS * (ABNORMAL) Blood glucose, POC (02/10/2016 9:01 PM CDT) Glucose, POC, bld 165(H) 71 - 98 mg/dl CDR HISTORICAL RESULTS Blood specimen (specimen) 02/10/2016 9:01 PM CDT Clayton Sandoval MD LAB BLOOD ORDERABLES Fin al Result Performing Organization Address [facility] de Phone Number CDR HISTORICAL RESULTS * (ABNORMAL) Blood glucose, POC (02/10/2016 5:49 PM CDT) Glucose, POC, bld 148(H) 71 - 98 mg/dl CDR HISTORICAL RESULTS Blood specimen (specimen) 02/10/2016 5:49 PM CDT Clayton Sandoval MD LAB BLOOD ORDERABLES Fin al Result Performing Organization Address [facility] de Phone Number CDR HISTORICAL RESULTS * (ABNORMAL) Blood glucose, POC (02/10/2016 11:44 AM CDT) Glucose, POC, bld 126(H) 71 - 98 mg/dl CDR HISTORICAL RESULTS Blood specimen (specimen) 02/10/2016 11:44 AM CDT Clayton Sandoval MD LAB BLOOD ORDERABLES Fin al Result Performing Organization Address [facility] de Phone Number CDR HISTORICAL RESULTS * (ABNORMAL) Serum renal panel (02/10/2016 5:02 AM CDT) Sodium 141 135 - 145 mmol/L CDR HISTORICAL RESULTS K, pl 4.5 3.5 - 5.1 mmol/L CDR HISTORICAL RESULTS Chloride 104 97 - 110 mmol/L CDR HISTORICAL RESULTS CO2 28 22 - 32 mmol/L CDR HISTORICAL RESULTS A. gap 14 8 - 16 mmol/L CDR HISTORICAL RESULTS Glucose 131 70 - 199 mg/dl CDR HISTORICAL RESULTS Comment: Interpretive Data Note:The glucose is assumed non fasting Fastin-99 mg/dL Random: ??70-199 mg/dL Either a fasting glucose > 126 mg/dL or a random glucose > 200 mg/dL plus symptoms is diagnostic of diabetes when confirmed on another day. Fasting values > 100 mg/dL but < 125 mg/dL are diagnostic of impaired fasting glucose. Current interpretive data was last revised on 2014. BUN 19.1 8.0 - 25.0 mg/dl CDR HISTORICAL RESULTS Creatinine 0.95 0.60 - 1.10 mg/dl CDR HISTORICAL RESULTS BUN/creat ratio 20 10 - 20 CDR HISTORICAL RESULTS Calcium 8.9 8.6 - 10.2 mg/dl CDR HISTORICAL RESULTS Phosphorus, pl 3.8 2.5 - 4.5 mg/dl CDR HISTORICAL RESULTS Alb 2.9(L) 3.6 - 5.0 g/dl CDR HISTORICAL RESULTS Serum 02/10/2016 5:02 AM CDT Clayton Sandoval MD LAB BLOOD ORDERABLES Fin al Result Performing Organization Address [facility] de Phone Number CDR HISTORICAL RESULTS * Serum estimated glomerular filtration rate (02/10/2016 5:02 AM CDT) Pathologist [facility] eGFR >60 ml/min/1.7 3 m2 CDR HISTORICAL RESULTS Comment: Interpretation of Estimated GFR (eGFR): Normal ?>/= 60 mL/min/1.73m2 Possible Chronic Kidney Disease ??15 - 59 mL/min/1.73m2 Possible Kidney Failure ?< 15 ??mL/min/1.73m2 If -[place] multiply value by 1.16. ??Estimated glomerular filtration rate is determined by the CKD-EPI equation recommended by the National Kidney Foundation (KDIGO 2012 Clinical Practice Guideline for the Evaluation and Management of Chronic Kidney Disease. ??Kidney Intnl Suppl Jul 2012;3:1). ??The CKD-EPI equation should not be used in acute renal failure or acute kidney injury and is not valid in children. Serum 02/10/2016 5:02 AM CDT us Clayton Sandoval MD LAB BLOOD ORDERABLES Fin al Result CDR HISTORICAL RESULTS * (ABNORMAL) Blood cell count (CBC) (02/10/2016 5:02 AM CDT) Pathologist [facility] WBC 8.1 3.8 - 9.8 K/cumm CDR HISTORICAL RESULTS RBC 2.52(L) 3.90 - 5.00 M/cumm CDR HISTORICAL RESULTS Hgb 7.3(L) 12.1 - 15.1 g/dl CDR HISTORICAL RESULTS Hct 22.4(L) 36.1 - 44.3 % CDR HISTORICAL RESULTS MCV 88.9 80.0 - 100.0 fl CDR HISTORICAL RESULTS MCH 29.0 26.7 - 33.7 pg CDR HISTORICAL RESULTS MCHC 32.6(L) 32.7 - 36.0 g/dl CDR HISTORICAL RESULTS Rdw 16.4(H) 11.5 - 14.6 % CDR HISTORICAL RESULTS Platelets 184 140 - 440 K/cumm CDR HISTORICAL RESULTS MPV 9.7 8.0 - 12.0 fl CDR HISTORICAL RESULTS NRBC 0.0 0.0 - 0.0 % CDR HIST ORICAL RESULTS NRBC, abs 0.00 0.00 - 0.00 K/cumm CDR HISTORICAL RESULTS Blood specimen (specimen) 02/10/2016 5:02 AM CDT Clayton Sandoval MD LAB BLOOD ORDERABLES Fin al Result CDR HISTORICAL RESULTS * Blood cell morphologic exam (02/10/2016 5:02 AM CDT) Neutrophils 63.5 44.0 - 80.0 % CDR HISTORICAL RESULTS Immature granulocytes 0.5 0.0 - 1.0 % CDR HISTORICAL RESULTS Lymphocytes 23.1 13.0 - 44.0 % CDR HISTORICAL RESULTS Monos 8.8 2.0 - 11.0 % CDR HISTORICAL RESULTS Eosinophils 3.7 0.0 - 6.0 % CDR HISTORICAL RESULTS Basophils 0.4 0.0 - 3.0 % CDR HISTORICAL RESULTS Neutrophils, abs 5.1 1.6 - 7.0 K/cumm CDR HISTORICAL RESULTS Immature granulocyte, abs 0.0 0.0 - 0.2 K/cumm CDR HISTORICAL RESULTS Lymphocytes, abs 1.9 0.5 - 4.3 K/cumm CDR HISTORICAL RESULTS Monocytes, absolute 0.7 0.1 - 1.0 K/cumm CDR HISTORICAL RESULTS Eosinophils, abs 0.3 0.0 - 0.6 K/cumm CDR HISTORICAL RESULTS Basophils, abs 0.0 0.0 - 0.3 K/cumm CDR HISTORICAL RESULTS Blood specimen (specimen) 02/10/2016 5:02 AM CDT Clayton Sandoval MD LAB BLOOD ORDERABLES Fin al Result CDR HISTORICAL RESULTS * (ABNORMAL) Blood glucose, POC (02/09/2016 8:40 PM CDT) Glucose, POC, bld 131(H) 71 - 98 mg/dl CDR HISTORICAL RESULTS Blood specimen (specimen) 02/09/2016 8:40 PM CDT Clayton Sandoval MD LAB BLOOD ORDERABLES Fin al Result CDR HISTORICAL RESULTS * (ABNORMAL) Blood glucose, POC (02/09/2016 5:28 PM CDT) Glucose, POC, bld 125(H) 71 - 98 mg/dl CDR HISTORICAL RESULTS Blood specimen (specimen) 02/09/2016 5:28 PM CDT Clayton Sandoval MD LAB BLOOD ORDERABLES Fin al Result CDR HISTORICAL RESULTS * (ABNORMAL) Blood glucose, POC (02/09/2016 11:41 AM CDT) Glucose, POC, bld 106(H) 71 - 98 mg/dl CDR HISTORICAL RESULTS Blood specimen (specimen) 02/09/2016 11:41 AM CDT Clayton Sandoval MD LAB BLOOD ORDERABLES Fin al Result CDR HISTORICAL RESULTS * (ABNORMAL) Blood glucose, POC (02/09/2016 6:45 AM CDT) Glucose, POC, bld 103(H) 71 - 98 mg/dl CDR HISTORICAL RESULTS Blood specimen (specimen) 02/09/2016 6:45 AM CDT Clayton Sandoval MD LAB BLOOD ORDERABLES Fin al Result CDR HISTORICAL RESULTS * (ABNORMAL) Blood glucose, POC (02/08/2016 8:42 PM CDT) Glucose, POC, bld 163(H) 71 - 98 mg/dl CDR HISTORICAL RESULTS Blood specimen (specimen) 02/08/2016 8:42 PM CDT Clayton Sandoval MD LAB BLOOD ORDERABLES Fin al Result Performing Organization Address [facility] de Phone Number CDR HISTORICAL RESULTS * (ABNORMAL) Blood glucose, POC (02/08/2016 5:31 PM CDT) Glucose, POC, bld 143(H) 71 - 98 mg/dl CDR HISTORICAL RESULTS Blood specimen (specimen) 02/08/2016 5:31 PM CDT Clayton Sandoval MD LAB BLOOD ORDERABLES Fin al Result Performing Organization Address [facility] de Phone Number CDR HISTORICAL RESULTS * (ABNORMAL) Blood glucose, POC (02/08/2016 11:59 AM CDT) Pathologist [facility] Glucose, POC, bld 127(H) 71 - 98 mg/dl CDR HISTORICAL RESULTS Blood specimen (specimen) 02/08/2016 11:59 AM CDT Clayton Sandoval MD LAB BLOOD ORDERABLES Fin al Result Performing Organization Address [facility] de Phone Number CDR HISTORICAL RESULTS * (ABNORMAL) Blood glucose, POC (02/08/2016 6:35 AM CDT) Pathologist [facility] Glucose, POC, bld 112(H) 71 - 98 mg/dl CDR HISTORICAL RESULTS Blood specimen (specimen) 02/08/2016 6:35 AM CDT Clayton Sandoval MD LAB BLOOD ORDERABLES Fin al Result Performing Organization Address [facility] Co de Phone Number CDR HISTORICAL RESULTS * (ABNORMAL) Blood hemoglobin, hematocrit (02/08/2016 5:42 AM CDT) Pathologist [facility] Hgb 7.5(L) 12.1 - 15.1 g/dl CDR HISTORICAL RESULTS Hct 23.6(L) 36.1 - 44.3 % CDR HISTORICAL RESULTS Blood specimen (specimen) 02/08/2016 5:42 AM CDT Historical Provider MD LAB BLOOD ORDERABLES Jessica l Result Performing Organization Address [facility] Co de Phone Number CDR HISTORICAL RESULTS * (ABNORMAL) Blood glucose, POC (02/07/2016 9:14 PM CDT) Glucose, POC, bld 225(H) 71 - 98 mg/dl CDR HISTORICAL RESULTS Blood specimen (specimen) 02/07/2016 9:14 PM CDT Clayton Sandoval MD LAB BLOOD ORDERABLES Fin al Result Performing Organization Address [facility] de Phone Number CDR HISTORICAL RESULTS * (ABNORMAL) Blood glucose, POC (02/07/2016 5:29 PM CDT) Pathologist [facility] Glucose, POC, bld 128(H) 71 - 98 mg/dl CDR HISTORICAL RESULTS Blood specimen (specimen) 02/07/2016 5:29 PM CDT Clayton Sandoval MD LAB BLOOD ORDERABLES Fin al Result Performing Organization Address [facility] Co de Phone Number CDR HISTORICAL RESULTS * (ABNORMAL) Blood glucose, POC (02/07/2016 11:55 AM CDT) Pathologist [facility] Glucose, POC, bld 134(H) 71 - 98 mg/dl CDR HISTORICAL RESULTS Blood specimen (specimen) 02/07/2016 11:55 AM CDT Clayton Sandoval MD LAB BLOOD ORDERABLES Fin al Result Performing Organization Address [facility] Co de Phone Number CDR HISTORICAL RESULTS documented in this encounter Visit Diagnoses Diagnosis Breakdown (mechanical) of other bone devices, implants and grafts, initial encounter (HCC) Age-related osteoporosis with current pathological fracture Type 2 diabetes mellitus with hypoglycemia without coma (HCC) Sarcoidosis Polyneuropathy Unspecified hereditary and idiopathic peripheral neuropathy Other surgical procedures as the cause of abnormal reaction of the patient, or of later complication, without mention of misadventure at the time of the procedure Unspecified place or not applicable Medical procedure, unspecified as the cause of abnormal reaction of the patient, or of later complication, without mention of misadventure at the time of the procedure Constipation Unspecified constipation Anemia Unspecified anemia Hyperlipidemia Other and unspecified hyperlipidemia Essential (primary) hypertension Unspecified essential hypertension technician terminal and 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
--- OUTSIDE RECORDS SUMMARY | 2024-07-11 22:42 | XMS_ITS | Encounter Summary ---
Author Organization [facility] Healthcare Address [address] [place] [address] Care Team Providers Care Ball Mill Operator Name Role Phone Clayton Sandoval MD Primary Care Provider + Encounter Details Date Type Department Care Team (Late st Contact Info) Description 06/28/2016 10:19 AM DOCTOR OF PODIATRIC MEDICINE - 06/28/2016 11:59 PM DOCTOR OF PODIATRIC MEDICINE Hospital Encounter [facility] Clayton Wyman MD [address] [place] [address] Age-related osteoporosis without current pathological fracture Social History Tobacco Use Types Packs/Day Years Used Date Smoking Tobacco: Never Alcohol Use Standard Drinks/Week Comments Yes 0 (1 standard drink = 0.6 oz pur e alcohol) Comments Unknown Sex and Gender Information Value Date Recorded Sex Assigned at Not on file Legal Sex Female 11:52 PM DOCTOR OF PODIATRIC MEDICINE Gender Identity Not on file Sexual Orientation [...] as needed 60 2 06/21/2013 2 zoledronic secn-eybgfuhg-n ater (RECLAST) 5 mg/100 mL piggyback tud 1 Syringe 0 08/14/2015 0 zoledronic wrzp-zwvqacny-o ater (RECLAST) 5 mg/100 mL piggyback tud 1 Syringe 0 08/14/2015 7 documented as of this encounter Plan of Treatment Not on file documented as of this encounter Visit Diagnoses Diagnosis Age-related osteoporosis without current pathological fracture documented in this encounter Care Teams Ball Mill Operator Relationship Specialty Start Date End Date Clayton Sandoval MD [address] [place] [address] PCP - General 09/30/12 09/26/16 documented as of this encounter
--- OUTSIDE RECORDS SUMMARY | 2024-07-11 22:42 | XMS_ITS | Encounter Summary ---
Author Organization [facility] Healthcare Address [address] [place] [address] Care Team Providers Care Fur Blender Name Role Phone Clayton Sandoval MD Primary Care Provider + Encounter Details Date Type Department Care Team (Late st Contact Info) Description 02/05/2016 9:20 AM CDT - 02/07/2016 10:46 AM CDT Hospital Encounter [facility] Shellie Weiss MD [address] [place] [address] DR HARDY [address] [place] [id number] Other mechanical complication of internal fixation device of left femur, initial encounter ([facility]); Type 2 diabetes mellitus with diabetic neuropathy ([facility]); Other fracture of head and neck of left femur, subsequent encounter for closed fracture with nonunion; Exposure to other specified factors, initial encounter; Other surgical procedures as the cause of abnormal reaction of the patient, or of later complication, without mention of misadventure at the time of the procedure; Unspecified fall, subsequent encounter; Unspecified place or not applicable; Essential (primary) hypertension; Gastro-esophageal reflux disease without esophagitis; Hyperlipidemia; emt intermediate current use of insulin ([facility]); Presence of both artificial knee joints Social History Tobacco Use Types Packs/Day Years Used Date Smoking Tobacco: Never Alcohol Use Standard Drinks/Week Comments Yes 0 (1 standard drink = 0.6 oz pur e alcohol) Comments Unknown Sex and Gender Information Value Date Recorded Sex Assigned at Not on file Legal Sex Female 11:52 PM [employer] Gender Identity Not on file Sexual Orientation Not on file documented as of this encounter Last Filed Vital Signs Vital Sign Reading Time Taken Comments Blood Pressure 112/49 02/07/2016 7:25 AM CDT Pulse 84 02/07/2016 8:30 AM CDT Temperature - - Respiratory Rate - - Oxygen Saturation - - Inhaled Oxygen Concentration - - Weight 103.4 kg (227 lb 15.3 oz) 02/06/2016 5:50 AM CDT Height 167.6 cm (5' 5.98 ) 02/06/2016 5:50 AM CD T Body Mass Index 36.81 02/06/2016 5:50 AM CDT documented in this encounter Medications [...] 2 times every day 0 0 07/21/2015 06/16/201 7 gabapentin (NEURONTIN) 300 mg capsule take [...] as needed 60 2 06/21/2013 2 zoledronic wqnq-ppjcnygk-p ater (RECLAST) 5 mg/100 mL piggyback tud 1 Syringe 0 08/14/2015 0 zoledronic bntt-zsqlyldx-o ater (RECLAST) 5 mg/100 mL piggyback tud 1 Syringe 0 08/14/2015 7 documented as of this encounter Miscellaneous Notes * Op Note - Provider, MD Sofiya - 02/05/2016 12:00 AM CDT OPERATIVE REPORT Patient: CRISS LY Service Date: 02/05/2016 Account: [id number] Room No: G606-01 : 1950 Patient Type: IP Attend.: Shellie Sykes M.D. Admit Date: 02/05/2016 Surg.: Shellie Sykes M.D. Disch. Date: 02/07/2016 SURGEON Shellie Sykes M.D. HAND PASTER Malgorzata Costa P.A.-C. 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 PROCEDURE Left conversion total hip arthroplasty. HAND PASTER 1. Malgorzata Costa PA-C. 2. Xavi Martinez PA-C. ANESTHESIA Spinal. COMPLICATIONS None. ESTIMATED BLOOD LOSS Approximately 300 mL. CONDITION Stable to PACU. IMPLANTED COMPONENTS 1. A Annada Tritanium acetabular shell size 52. 2. Three bone screws 25 mm, 25 mm and 35 mm in length. 3. A 38 mm inner diameter metal MDM liner. 4. A bahai modular femoral stem size 155 x 17 mm diameter distal diaphyseal portion with 19 mm +0 cone body, proximal portion 38 mm MDM polyethylene insert and a 22 mm +0 cobalt chrome femoral head. TECHNIQUE I met the patient in preoperative holding area. Signed her left hip. She has transferred to the operating room. Spinal anesthesia was administered. Preoperative antibiotics were given. A timeout was carried out. The left lower extremity was prepped and draped in usual sterile fashion in the right lateral decubitus position. A posterolateral approach was utilized. An incision was made sharply and abundant subcutaneous tissue was divided using Bovie electrocautery. The fascia was identified and incised in line with the femur along IT band distally and in line with the gluteus seth fibers more proximally. Charnley retractor was inserted and there was an abundance of scar tissue and callus from previous hypertrophic nonunion. A posterior flap of tissue was taken down with the capsule and short external rotators. This was tagged with Ethibond suture. The greater trochanter was overriding and found to be somewhat immobile, but malunited. The lag screw could not be accessed nor could the proximal part of the nail due to bony overgrowth and malunion. Therefore, the gluteal sling was partially released to increase exposure and a trochanteric osteotomy was performed in a controlled fashion to expose the proximal part of the nail for removal. This osteotomized trochanteric piece had been malunited, but was removed with both the vastus distal origin and abductor proximal insertion attached to it for stability. This was mobilized. The a proximal locking pin was removed from the head of the nail, followed by the lag screw itself and removal of the long Gamma nail without difficulty. The inner portion of the femoral canal was then scraped and fibrous canal ingrowth was removed. Sequential reaming then ensued up to a 17 for a 17 x 155 distal bahai modular conical stem. The canal was thoroughly irrigated. The stem was impacted into place and sat at the appropriate broach as templated off the tip of the greater trochanter. Once this was done, a corkscrew was utilized to remove the femoral head, the femoral head which was fragmented and had been cut out from the lag screw. The acetabulum was carefully exposed. Pulvinar and labrum were excised. There was abundant arthrosis due to the failure with the lag screw grinding into the acetabulum. Sequential reaming ensued up to a size 52 with a 52 acetabular shell was selected. It was difficult to achieve stability due to very poor bone and this had to be placed slightly more vertical than typical and 3 screws were placed to augment fixation. The MDM liner was selected to improved stability in this conversion setting with damaged abductors and a 38 mm inner diameter metal liner was impacted into place and locking was confirmed. Attention was then returned to the femoral side and the 19 mm neutral height body was trialed as had been templated. This was placed in approximately 15- 20 degrees of femoral anteversion. The neutral head with MDM liner trial was placed and this was reduced. This was found to have appropriate leg length with 2 half to 3 cm of lengthening as had been the preoperative plan based on severe shortening from her injury. However, even with this lengthening there was some subtle instability, likely due to adductor incompetence in the osteotomy. Therefore, the hip was gently dislocated trials were removed. The wound was thoroughly irrigated once again and the final +0 neutral 19 cone body was impacted on the Caldwell taper and locked with screw home in approximately 15-20 degrees of anteversion. The neutral head was selected and tapped on the clean dry trunnion along with the 38 mm polyethylene insert and this was reduced under direct visualization in the acetabulum. Once again, this was found to be subtly unstable due to abductor incompetence, but was felt to be reasonable given the circumstances. The short external rotators and capsule were then repaired through drill holes in the osteotomized greater trochanter, which was repaired with a cable. This was the 2nd cable placed and a previous cable had been placed just distal to the osteotomy as a prophylaxis while preparing for the femoral stem. Following this, the short external rotators were repaired. In addition, of the capsule was closed tightly with additional Ethibond proximally and in the gluteal sling. The arthrotomy was then closed with interrupted #1 Vicryl reinforced with a looped PDS in the fascia, and the gluteus seth. Subcutaneous tissue was then closed in multiple layers with 2-0 Vicryl interrupted suture in the deep and middle layer followed by running 2-0 Quill in the superficial subcutaneous tissue. Running 4-0 Monocryl subcuticular stitch was placed in the skin and reinforced with Steri-Strips. A sterile bandage was applied. The patient was transferred to the PACU in good condition having had no complications during her procedure. Sponge, needle, and instrument counts were all correct at the end the case. Of note, she is at high risk for instability and dislocation of this conversion setting with a malunion takedown of the greater trochanter and deficient abductors. Will have her in an abduction brace and remain with strict posterior precautions and the first couple of months. Electronically Authenticated by: Shellie Sykes M.D. On 02/08/2016 05:18 PM CDT Shellie Sykes M.D. /[facility] TD: 02/05/2016 21:23 documented in this encounter Plan of Treatment Not on file documented as of this encounter Procedures Procedure Name Priority Date/Time Associated Diagnosis Comments BLOOD GLUCOSE, POC Routine 02/07/2016 7: 20 AM CDT SERUM ESTIMATED GLOMERULAR FILTRATION RATE Routine 02/07/2016 4:48 AM CDT PLASMA BASIC METABOLIC PANEL Routine 02/07/2016 4:48 AM CDT BLOOD CELL COUNT (CBC) Routine 6 4:48 AM CDT BLOOD CELL MORPHOLOGIC EXAM Routine 02/07/2016 4:48 AM CDT BLOOD GLUCOSE, POC Routine 02/07/2016 3: 05 AM CDT DISCHARGE LABORATORY CUMULATIVE REPORT 02/07/2016 BLOOD GLUCOSE, POC Routine 02/06/2016 9: 09 PM CDT BLOOD GLUCOSE, POC Routine 02/06/2016 4: 12 PM CDT BLOOD GLUCOSE, POC Routine 02/06/2016 11 :10 AM CDT BLOOD GLUCOSE, POC Routine 02/06/2016 7: 23 AM CDT SERUM ESTIMATED GLOMERULAR FILTRATION RATE Routine 02/06/2016 4:03 AM CDT PLASMA BASIC METABOLIC PANEL Routine 02/06/2016 4:03 AM CDT BLOOD CELL COUNT (CBC) Routine 6 4:03 AM CDT BLOOD CELL MORPHOLOGIC EXAM Routine 02/06/2016 4:03 AM CDT BLOOD GLUCOSE, POC Routine 02/06/2016 2: 36 AM CDT BLOOD GLUCOSE, POC Routine 02/05/2016 9: 03 PM CDT XR PELVIS 1 OR 2 VIEWS Routine 6 4:23 PM CDT BLOOD GLUCOSE, POC Routine 02/05/2016 4: 12 PM CDT XR PELVIS 1 OR 2 VIEWS Routine 6 11:05 AM CDT SERUM ESTIMATED GLOMERULAR FILTRATION RATE Routine 02/05/2016 10:27 AM CDT PLASMA COMPREHENSIVE METABOLIC PANEL Routine 02/05/2016 10:27 AM CDT BLOOD PROTHROMBIN TIME (PT) Routine 02/05/2016 10:27 AM CDT BLOOD PARTIAL THROMBOPLASTIN TIME (PTT) Routine 02/05/2016 10:27 AM CDT BLOOD INDIRECT ANTIGLOBULIN TEST Routine 02/05/2016 10:27 AM CDT BLOOD ABO, RH Routine 02/05/2016 10:27 AM CDT BLOOD GLUCOSE, POC Routine 02/05/2016 10 :23 AM CDT URINE (AEROBIC) CULTURE, CDR Routine 02/05/2016 10:10 AM CDT URINE MICROSCOPY Routine 02/05/2016 10:1 0 AM CDT URINALYSIS Routine 02/05/2016 5:10 AM CDT SURGICAL PATHOLOGY 02/05/2016 documented in this encounter Results * (ABNORMAL) Blood glucose, POC (02/07/2016 7:20 AM CDT) Glucose, POC, bld 126(H) 71 - 98 mg/dl CDR HISTORICAL RESULTS Blood specimen (specimen) 02/07/2016 7:20 AM CDT us Historical Provider LAB BLOOD ORDERABLES Jessiac l Result CDR HISTORICAL RESULTS * (ABNORMAL) Plasma basic metabolic panel (02/07/2016 4:48 AM CDT) Sodium 140 135 - 145 mmol/L CDR HISTORICAL RESULTS K, pl 4.6 3.5 - 5.1 mmol/L CDR HISTORICAL RESULTS Chloride 104 97 - 110 mmol/L CDR HISTORICAL RESULTS CO2 26 22 - 32 mmol/L CDR HISTORICAL RESULTS A. gap 15 8 - 16 mmol/L CDR HISTORICAL RESULTS Glucose 154 70 - 199 mg/dl CDR HISTORICAL RESULTS [...] data was last revised on 2014. BUN 24.5 8.0 - 25.0 mg/dl CDR HISTORICAL RESULTS Creatinine 1.14(H) 0.60 - 1.10 mg/dl CDR HISTORICAL RESULTS Calcium 8.7 8.6 - 10.2 mg/dl CDR HISTORICAL RESULTS BUN/creat ratio 21(H) 10 - 20 CDR HISTORICAL RESULTS Plasma 02/07/2016 4:48 AM CDT Historical Provider LAB BLOOD ORDERABLES Jessica reynolds Result CDR HISTORICAL RESULTS * (ABNORMAL) Blood cell count (CBC) (02/07/2016 4:48 AM CDT) WBC 10.5(H) 3.8 - 9.8 K/cumm CDR HISTORICAL RESULTS RBC 2.78(L) 3.90 - 5.00 M/cumm CDR HISTORICAL RESULTS Hgb 7.9(L) 12.1 - 15.1 g/dl CDR HISTORICAL RESULTS Hct 24.5(L) 36.1 - 44.3 % CDR HISTORICAL RESULTS MCV 88.1 80.0 - 100.0 fl CDR HISTORICAL RESULTS MCH 28.4 26.7 - 33.7 pg CDR HISTORICAL RESULTS MCHC 32.2(L) 32.7 - 36.0 g/dl CDR HISTORICAL RESULTS Rdw 16.6(H) 11.5 - 14.6 % CDR HISTORICAL RESULTS Platelets 170 140 - 440 K/cumm CDR HISTORICAL RESULTS MPV 9.8 8.0 - 12.0 fl CDR HISTORICAL RESULTS NRBC 0.0 0.0 - 0.0 % CDR HIST ORICAL RESULTS NRBC, abs 0.00 0.00 - 0.00 K/cumm CDR HISTORICAL RESULTS Blood specimen (specimen) 02/07/2016 4:48 AM CDT Historical Provider LAB BLOOD ORDERABLES Jessica rodolfo Result Performing Organization Address [facility] de Phone Number CDR HISTORICAL RESULTS * (ABNORMAL) Blood cell morphologic exam (02/07/2016 4:48 AM CDT) Neutrophils 67.8 44.0 - 80.0 % CDR HISTORICAL RESULTS Immature granulocytes 0.5 0.0 - 1.0 % CDR HISTORICAL RESULTS Lymphocytes 21.3 13.0 - 44.0 % CDR HISTORICAL RESULTS Monos 9.1 2.0 - 11.0 % CDR HISTORICAL RESULTS Eosinophils 1.0 0.0 - 6.0 % CDR HISTORICAL RESULTS Basophils 0.3 0.0 - 3.0 % CDR HISTORICAL RESULTS Neutrophils, abs 7.2(H) 1.6 - 7.0 K/cumm CDR HISTORICAL RESULTS Immature granulocyte, abs 0.0 0.0 - 0.2 K/cumm CDR HISTORICAL RESULTS Lymphocytes, abs 2.2 0.5 - 4.3 K/cumm CDR HISTORICAL RESULTS Monocytes, absolute 1.0 0.1 - 1.0 K/cumm CDR HISTORICAL RESULTS Eosinophils, abs 0.1 0.0 - 0.6 K/cumm CDR HISTORICAL RESULTS Basophils, abs 0.0 0.0 - 0.3 K/cumm CDR HISTORICAL RESULTS Blood specimen (specimen) 02/07/2016 4:48 AM CDT Historical Provider LAB BLOOD ORDERABLES Jessica rodolfo Result Performing Organization Address [facility] Co de Phone Number CDR HISTORICAL RESULTS * Serum estimated glomerular filtration rate (02/07/2016 4:48 AM CDT) eGFR 50 ml/min/1.7 3 m2 CDR HISTORICAL RESULTS Comment: Interpretation of Estimated GFR (eGFR): Normal ?>/= 60 mL/min/1.73m2 Possible Chronic Kidney Disease ??15 - 59 mL/min/1.73m2 Possible Kidney Failure ?< 15 ??mL/min/1.73m2 If -Ivorian multiply value by 1.16. ??Estimated glomerular filtration rate is determined by the CKD-EPI equation recommended by the National Kidney Foundation (KDIGO 2012 Clinical Practice Guideline for the Evaluation and Management of Chronic Kidney Disease. ??Kidney Intnl Suppl Jul 2012;3:1). ??The CKD-EPI equation should not be used in acute renal failure or acute kidney injury and is not valid in children. Serum 02/07/2016 4:48 AM CDT Result [facility] Provider LAB BLOOD ORDERABLES Jessica l Result Performing Organization Address [facility] Co de Phone Number CDR HISTORICAL RESULTS * (ABNORMAL) Blood glucose, POC (02/07/2016 3:05 AM CDT) Glucose, POC, bld 156(H) 71 - 98 mg/dl CDR HISTORICAL RESULTS Blood specimen (specimen) 02/07/2016 3:05 AM CDT Result [facility] Provider LAB BLOOD ORDERABLES Jessica l Result Performing Organization Address [facility] Co de Phone Number CDR HISTORICAL RESULTS * DISCHARGE LABORATORY CUMULATIVE REPORT (02/07/2016) Narrative 02/07/2016 Ordered by an unspecified provider. [facility] Provider LAB BLOOD ORDERABLES Jessica l Result * Blood glucose, POC (02/06/2016 9:09 PM CDT) Glucose, POC, bld 91 71 - 98 mg/dl CDR HISTORICAL RESULTS Blood specimen (specimen) 02/06/2016 9:09 PM CDT Historical Provider LAB BLOOD ORDERABLES Jessica l Result Performing Organization Address [facility] Co de Phone Number CDR HISTORICAL RESULTS * (ABNORMAL) Blood glucose, POC (02/06/2016 4:12 PM CDT) Glucose, POC, bld 190(H) 71 - 98 mg/dl CDR HISTORICAL RESULTS Blood specimen (specimen) 02/06/2016 4:12 PM CDT Historical Provider LAB BLOOD ORDERABLES Jessica reynolds Result Performing Organization Address [facility] Co de Phone Number CDR HISTORICAL RESULTS * (ABNORMAL) Blood glucose, POC (02/06/2016 11:10 AM CDT) Glucose, POC, bld 191(H) 71 - 98 mg/dl CDR HISTORICAL RESULTS Blood specimen (specimen) 02/06/2016 11:10 AM CDT Historical Provider LAB BLOOD ORDERABLES Jessica reynolds Result Performing Organization Address [facility] de Phone Number CDR HISTORICAL RESULTS * (ABNORMAL) Blood glucose, POC (02/06/2016 7:23 AM CDT) Glucose, POC, bld 181(H) 71 - 98 mg/dl CDR HISTORICAL RESULTS Blood specimen (specimen) 02/06/2016 7:23 AM CDT Historical Provider LAB BLOOD ORDERABLES Jessica reynolds Result Performing Organization Address [facility] de Phone Number CDR HISTORICAL RESULTS * (ABNORMAL) Plasma basic metabolic panel (02/06/2016 4:03 AM CDT) Sodium 138 135 - 145 mmol/L CDR HISTORICAL RESULTS K, pl 5.4(H) 3.5 - 5.1 mmol/L CDR HISTORICAL RESULTS Chloride 102 97 - 110 mmol/L CDR HISTORICAL RESULTS CO2 23 22 - 32 mmol/L CDR HISTORICAL RESULTS A. gap 18(H) 8 - 16 mmol/L CDR HISTORICAL RESULTS Glucose 213(H) 70 - 199 mg/dl CDR HISTORICAL RESULTS [...] data was last revised on 2014. BUN 23.6 8.0 - 25.0 mg/dl CDR HISTORICAL RESULTS Creatinine 1.30(H) 0.60 - 1.10 mg/dl CDR HISTORICAL RESULTS Calcium 8.3(L) 8.6 - 10.2 mg/dl CDR HISTORICAL RESULTS BUN/creat ratio 18 10 - 20 CDR HISTORICAL RESULTS Plasma 02/06/2016 4:03 AM CDT Historical Provider LAB BLOOD ORDERABLES Jessica l Result Performing Organization Address [facility] de Phone Number CDR HISTORICAL RESULTS * Serum estimated glomerular filtration rate (02/06/2016 4:03 AM CDT) eGFR 43 ml/min/1.7 3 m2 CDR HISTORICAL RESULTS Comment: Interpretation of Estimated GFR (eGFR): Normal ?>/= 60 mL/min/1.73m2 Possible Chronic Kidney Disease ??15 - 59 mL/min/1.73m2 Possible Kidney Failure ?< 15 ??mL/min/1.73m2 If -Ivorian multiply value by 1.16. ??Estimated glomerular filtration rate is determined by the CKD-EPI equation recommended by the National Kidney Foundation (KDIGO 2012 Clinical Practice Guideline for the Evaluation and Management of Chronic Kidney Disease. ??Kidney Intnl Suppl Jul 2012;3:1). ??The CKD-EPI equation should not be used in acute renal failure or acute kidney injury and is not valid in children. Serum 02/06/2016 4:03 AM CDT Historical Provider LAB BLOOD ORDERABLES Jessica l Result Performing Organization Address [facility] Co de Phone Number CDR HISTORICAL RESULTS * (ABNORMAL) Blood cell count (CBC) (02/06/2016 4:03 AM CDT) WBC 13.0(H) 3.8 - 9.8 K/cumm CDR HISTORICAL RESULTS RBC 3.10(L) 3.90 - 5.00 M/cumm CDR HISTORICAL RESULTS Hgb 8.8(L) 12.1 - 15.1 g/dl CDR HISTORICAL RESULTS Hct 26.9(L) 36.1 - 44.3 % CDR HISTORICAL RESULTS MCV 86.8 80.0 - 100.0 fl CDR HISTORICAL RESULTS MCH 28.4 26.7 - 33.7 pg CDR HISTORICAL RESULTS MCHC 32.7 32.7 - 36.0 g/dl CDR HISTORICAL RESULTS Rdw 16.0(H) 11.5 - 14.6 % CDR HISTORICAL RESULTS Platelets 212 140 - 440 K/cumm CDR HISTORICAL RESULTS MPV 9.7 8.0 - 12.0 fl CDR HISTORICAL RESULTS NRBC 0.0 0.0 - 0.0 % CDR HIST ORICAL RESULTS NRBC, abs 0.00 0.00 - 0.00 K/cumm CDR HISTORICAL RESULTS Blood specimen (specimen) 02/06/2016 4:03 AM CDT us Historical Provider LAB BLOOD ORDERABLES Jessica reynolds Result CDR HISTORICAL RESULTS * (ABNORMAL) Blood cell morphologic exam (02/06/2016 4:03 AM CDT) Neutrophils 87.4(H) 44.0 - 80.0 % CDR HISTORICAL RESULTS Immature granulocytes 0.8 0.0 - 1.0 % CDR HISTORICAL RESULTS Lymphocytes 7.1(L) 13.0 - 44.0 % CDR HISTORICAL RESULTS Monos 4.6 2.0 - 11.0 % CDR HISTORICAL RESULTS Eosinophils 0.0 0.0 - 6.0 % CDR HISTORICAL RESULTS Basophils 0.1 0.0 - 3.0 % CDR HISTORICAL RESULTS Neutrophils, abs 11.3(H) 1.6 - 7.0 K/cumm CDR HISTORICAL RESULTS Immature granulocyte, abs 0.1 0.0 - 0.2 K/cumm CDR HISTORICAL RESULTS Lymphocytes, abs 0.9 0.5 - 4.3 K/cumm CDR HISTORICAL RESULTS Monocytes, absolute 0.6 0.1 - 1.0 K/cumm CDR HISTORICAL RESULTS Eosinophils, abs 0.0 0.0 - 0.6 K/cumm CDR HISTORICAL RESULTS Basophils, abs 0.0 0.0 - 0.3 K/cumm CDR HISTORICAL RESULTS Blood specimen (specimen) 02/06/2016 4:03 AM CDT Historical Provider LAB BLOOD ORDERABLES Jessica l Result Performing Organization Address [facility] de Phone Number CDR HISTORICAL RESULTS * (ABNORMAL) Blood glucose, POC (02/06/2016 2:36 AM CDT) Glucose, POC, bld 232(H) 71 - 98 mg/dl CDR HISTORICAL RESULTS Comment:Glu2: SEBASTIÁN/ Notified Blood specimen (specimen) 02/06/2016 2:36 AM CDT Historical Provider LAB BLOOD ORDERABLES Jessica l Result Performing Organization Address [facility] de Phone Number CDR HISTORICAL RESULTS * (ABNORMAL) Blood glucose, POC (02/05/2016 9:03 PM CDT) Glucose, POC, bld 237(H) 71 - 98 mg/dl CDR HISTORICAL RESULTS Comment:Glu2: RN/ Notified Blood specimen (specimen) 02/05/2016 9:03 PM CDT Historical Provider LAB BLOOD ORDERABLES Jessica l Result Performing Organization Address [facility] de Phone Number CDR HISTORICAL RESULTS * XR Pelvis (RadLink) 1 View (02/05/2016 4:23 PM CDT) Anatomical Region Laterality Modality Body, Pelvis N/A Radiographic Pamela ging 02/05/2016 4:23 PM CDT Narrative 02/06/2016 10:09 AM CDT XR Pelvis 1-2 Views ?? [id number] ??Acc#: ??[id number] DATE OF EXAM: ??Feb 05 2016 CLINICAL HISTORY: Previous left hip fracture. ??Removal of surgical hardware and placement of a left hip prosthesis. RESULT: A portable AP view of the pelvis correlated to the study from earlier today now demonstrates a left total hip arthroplasty that is anatomically aligned. ??There is a surgical wire at the level of the proximal shaft and another surgical wire at the level of the trochanters. IMPRESSION: LEFT TOTAL HIP ARTHROPLASTY ANATOMICALLY ALIGNED WITH INTERVAL REMOVAL OF THE INTRAMEDULLARY REGGIE AND CONNECTING SCREW SEEN ON THE STUDY FROM 02/05/16. Interpreting Physician: ??DELMY COOPER M.D. ??Read on: ??Feb 05 2016 ??5:55P Transcribed by: ??fabricio ??On: Feb 06 2016 ??9:18A Approved Electronically by: ??DELMY COOPER M.D. ??on: ??Feb 06 2016 10:09A Attending: ??DR SHELLIE SYKES Requesting: ??MALGORZATA GARCIA PA-C Requesting Fax: ??[phone] Attending Fax: ??[phone] Attending ID: ??[id number] Requesting ID: ??[id number] Report To 1 ID: ??[id number] Report To 1 Name: ??DR SHELLIE SYKES Report To 1 FAX: ??[phone] [employer] Order #: Procedure Note Provider, MD Sofiya - 11/07/2016 XR Pelvis 1-2 Views [id number] Acc#: [id number] DATE OF EXAM: Feb 05 2016 CLINICAL HISTORY: Previous left hip fracture. Removal of surgical hardware and placementof a left hip prosthesis. RESULT: A portable AP view of the pelvis correlated to the study from earli[place]oday now demonstrates a left total hip arthroplasty that is anatomicallyaligned. There is a surgical wire at the level of the proximal shaft andanother surgical wire at the level of the trochanters. IMPRESSION: LEFT TOTAL HIP ARTHROPLASTY ANATOMICALLY ALIGNED WITH INTERVAL REMOVAL OFTHE INTRAMEDULLARY REGGIE AND CONNECTING SCREW SEEN ON THE STUDY FROM02/05/16. Interpreting Physician: DELMY COOPER M.D. Read on: Feb 05 2016 5:55P Transcribed by: fabricio On: Feb 06 2016 9:18A Approved Electronically by: DELMY COOPER M.D. on: Feb 06 2016 10:09A Attending: DR SHELLIE SYKES Requesting: MALGORZATA GARCIA PA-C Requesting Attending Attending ID: [id number] Requesting ID: [id number] Report To 1 ID: [id number] Report To 1 Name: DR PATT SHELLIE Report To 1 FAX: [phone] Next[facility] Order #: us Historical Provider IMG XR PROCEDURES Final R esult * (ABNORMAL) Blood glucose, POC (02/05/2016 4:12 PM CDT) Glucose, POC, bld 163(H) 71 - 98 mg/dl CDR HISTORICAL RESULTS Blood specimen (specimen) 02/05/2016 4:12 PM CDT Historical Provider LAB BLOOD ORDERABLES Jessica l Result CDR HISTORICAL RESULTS * XR Pelvis (RadLink) 1 View (02/05/2016 11:05 AM CDT) Anatomical Region Laterality Modality Body, Pelvis N/A Radiographic Pamela ging 02/05/2016 11:0 5 AM CDT Narrative 02/05/2016 3:16 PM CDT XR Pelvis 1-2 Views ?? [id number] ??Acc#: ??[id number] DATE OF EXAM: ??Feb 05 2016 CLINICAL HISTORY: Fracture conversion of previous hip surgery. Total hip arthroplasty. RESULT: Single portable AP view of the pelvis obtained, compared with prior study of 08/30/2015. Prior left hip pinning for left intertrochanteric fracture. The position is similar to prior study. Some change of healing in the region of the fracture, as previously. Some lucency within the femoral neck extending into the femoral head adjacent to the gamma nail, which may represent some bony resorption. Mild degenerative change of the right hip. Degenerative change of the lower lumbar spine. No new fracture identified. IMPRESSION: 1. ??PRIOR LEFT HIP PINNING FOR INTERTROCHANTERIC FRACTURE. SOME LUCENCY LEFT FEMORAL NECK TO FEMORAL HEAD ADJACENT TO THE GAMMA NAIL, WHICH MAY REPRESENT BONY RESORPTION. 2. ??DEGENERATIVE CHANGES. Interpreting Physician: ??KATHERINE ORELLANA M.D. ??Read on: ??Feb 05 2016 11:09A Transcribed by: ??TXD ??On: Feb 05 2016 11:52A Approved Electronically by: ??KATHERINE ORELLANA M.D. ??on: ??Feb 05 2016 ??3:16P Attending: ??DR SHELLIE SYKES Requesting: ??DR SHELLIE SYKES Requesting Fax: ??[phone] Attending Fax: ??[phone] Attending ID: ??[id number] Requesting ID: ??[id number] Report To 1 ID: ??[id number] Report To 1 Name: ??DR SHELLIE SYKES Report To 1 FAX: ??[phone] [facility] Order #: Procedure Note Provider, MD Sofiya - 11/07/2016 XR Pelvis 1-2 Views [id number] Acc#: [id number] DATE OF EXAM: Feb 05 2016 CLINICAL HISTORY: Fracture conversion of previous hip surgery. Total hip arthroplasty. RESULT: Single portable AP view of the pelvis obtained, compared with prior studyof 08/30/2015. Prior left hip pinning for left intertrochanteric fracture.The position is similar to prior study. Some change of healing in theregion of the fracture, as previously. Some lucency within the femoralneck extending into the femoral head adjacent to the gamma nail, which mayrepresent some bony resorption. Mild degenerative change of the right hip.Degenerative change of the lower lumbar spine. No new fractureidentified. IMPRESSION: 1. PRIOR LEFT HIP PINNING FOR INTERTROCHANTERIC FRACTURE. SOME LUCENCYLEFT FEMORAL NECK TO FEMORAL HEAD ADJACENT TO THE GAMMA NAIL, WHICH MAYREPRESENT BONY RESORPTION. 2. DEGENERATIVE CHANGES. Interpreting Physician: KATHERINE ORELLANA M.D. Read on: Feb 05 2016 11:09A Transcribed by: TXHarleen On: Feb 05 2016 11:52A Approved Electronically by: KATHERINE ORELLANA M.D. on: Feb 05 2016 3:16P Attending: DR SHELLIE SYKES Requesting: DR SHELLIE SYKES Requesting Attending Attending ID: [id number] Requesting ID: [id number] Report To 1 ID: [id number] Report To 1 Name: DR SHELLIE SYKES Report To 1 FAX: [phone] [facility] Order #: Result [facility] Historical Provider IMG XR PROCEDURES Final R esult * Blood ABO, Rh (02/05/2016 10:27 AM CDT) ABO, Rho (D) interp B Positive CDR HISTORICAL RESULTS Blood specimen (specimen) 02/05/2016 10:27 AM CDT Result [facility] Historical Provider LAB BLOOD ORDERABLES Jessica l Result Performing Organization Address [facility] de Phone Number CDR HISTORICAL RESULTS * Blood indirect antiglobulin test (02/05/2016 10:27 AM CDT) Pathologist [facility] Janeth, indirect Negative ABSC CDR HISTORICAL RESULTS Blood specimen (specimen) 02/05/2016 10:27 AM CDT Result [facility] Provider LAB BLOOD ORDERABLES Jessica l Result Performing Organization Address [facility] de Phone Number CDR HISTORICAL RESULTS * (ABNORMAL) Plasma comprehensive metabolic panel (02/05/2016 10:27 AM CDT) Pathologist [facility] Sodium 140 135 - 145 mmol/L CDR HISTORICAL RESULTS K, pl 4.1 3.5 - 5.1 mmol/L CDR HISTORICAL RESULTS Chloride 99 97 - 110 mmol/L CDR HISTORICAL RESULTS CO2 23 22 - 32 mmol/L CDR HISTORICAL RESULTS A. gap 22(H) 8 - 16 mmol/L CDR HISTORICAL RESULTS Glucose 148 70 - 199 mg/dl CDR HISTORICAL RESULTS [...] data was last revised on 2014. BUN 16.7 8.0 - 25.0 mg/dl CDR HISTORICAL RESULTS Creatinine 1.21(H) 0.60 - 1.10 mg/dl CDR HISTORICAL RESULTS BUN/creat ratio 14 10 - 20 CDR HISTORICAL RESULTS Calcium 10.1 8.6 - 10.2 mg/dl CDR HISTORICAL RESULTS Protein, sr 7.5 6.0 - 8.4 g/dl CDR HISTORICAL RESULTS Alb 4.0 3.6 - 5.0 g/dl CDR HISTORICAL RESULTS Alk phos 77 40 - 130 Units/L CDR HISTORICAL RESULTS ALT 23 5 - 45 Units/L CDR HISTORICAL RESULTS AST 26 10 - 40 Units/L CDR HISTORICAL RESULTS Bilirubin 0.6 <=1.2 mg/dl CDR HISTORICAL RESULTS Plasma 02/05/2016 10:2 7 AM CDT Historical Provider LAB BLOOD ORDERABLES Jessica reynolds Result Performing Organization Address [facility] de Phone Number CDR HISTORICAL RESULTS * (ABNORMAL) Blood partial thromboplastin time (PTT) (02/05/2016 10:27 AM CDT) PTT 68.2(H) 25.0 - 37.0 seconds CDR HISTORICAL RESULTS Blood specimen (specimen) 02/05/2016 10:27 AM CDT Result [facility] Provider LAB BLOOD ORDERABLES Jessica l Result Performing Organization Address [facility] de Phone Number CDR HISTORICAL RESULTS * Blood prothrombin time (PT) (02/05/2016 10:27 AM CDT) Prothrombin time (PT) 11.9 9.5 - 12.5 seconds CDR HISTORICAL RESULTS INR 1.10 0.90 - 1.20 CDR HIST ORICAL RESULTS Comment: Interpretive Data Recommended ranges for Protime INR: 2.0 - 3.0 Most indications for Warfarin therapy (e.g. Treatment of DVT, PE, bioprosthetic valve replacement, prophylaxis venous thrombosis, atrial fibrillation). 2.5 - 3.5 Mechanical mitral valve or dual mechanical mitral and Aortic valve replacement. Current Interpretive Data was last revised on 2015. Blood specimen (specimen) 02/05/2016 10:27 AM CDT Historical Provider LAB BLOOD ORDERABLES Jessica l Result Performing Organization Address [facility] de Phone Number CDR HISTORICAL RESULTS * Serum estimated glomerular filtration rate (02/05/2016 10:27 AM CDT) eGFR 47 ml/min/1.7 3 m2 CDR HISTORICAL RESULTS Comment: Interpretation of Estimated GFR (eGFR): Normal ?>/= 60 mL/min/1.73m2 Possible Chronic Kidney Disease ??15 - 59 mL/min/1.73m2 Possible Kidney Failure ?< 15 ??mL/min/1.73m2 If -Ivorian multiply value by 1.16. ??Estimated glomerular filtration rate is determined by the CKD-EPI equation recommended by the National Kidney Foundation (KDIGO 2012 Clinical Practice Guideline for the Evaluation and Management of Chronic Kidney Disease. ??Kidney Intnl Suppl Jul 2012;3:1). ??The CKD-EPI equation should not be used in acute renal failure or acute kidney injury and is not valid in children. Serum 02/05/2016 10:2 7 AM CDT Historical Provider LAB BLOOD ORDERABLES Jessica l Result Performing Organization Address [facility] de Phone Number CDR HISTORICAL RESULTS * (ABNORMAL) Blood glucose, POC (02/05/2016 10:23 AM CDT) Glucose, POC, bld 147(H) 71 - 98 mg/dl CDR HISTORICAL RESULTS Blood specimen (specimen) 02/05/2016 10:23 AM CDT Historical Provider LAB BLOOD ORDERABLES Jessica l Result Performing Organization Address [facility] de Phone Number CDR HISTORICAL RESULTS * Urine (aerobic) culture (02/05/2016 10:10 AM CDT) Urine (Unknown) 02/05/2016 1 0:10 AM CDT 02/05/2016 10:30 AM CDT Historical Provider LAB MICROBIOLOGY - GENERA L ORDERABLES Final Result Performing Organization Address [facility] de Phone Number CDR HISTORICAL RESULTS * (ABNORMAL) Urine microscopy (02/05/2016 10:10 AM CDT) RBC, ur 5 - 10(A) 0 - 2 /hpf CDR HISTO RICAL RESULTS WBC, ur 2 - 5(A) 0 - 2 /hpf CDR HISTO RICAL RESULTS Bacteria, ur Negative Negative CDR HIS TORICAL RESULTS Hyaline casts 0 - 2 0 - 2 /lpf CDR H ISTORICAL RESULTS Epithelial cells, ur 5 - 10(A) 0 - 2 /hpf CDR HISTORICAL RESULTS Urine 02/05/2016 10:1 0 AM CDT Historical Provider LAB BLOOD ORDERABLES Jessica reynolds Result Performing Organization Address [facility] de Phone Number CDR HISTORICAL RESULTS * (ABNORMAL) Urinalysis (02/05/2016 5:10 AM CDT) Color, ur Yellow Yellow CDR HISTOR ICAL RESULTS Clarity, ur Clear Clear CDR HIST ORICAL RESULTS Specific gravity, ur 1.019 1.003 - 1.030 CDR HISTORICAL RESULTS Comment:Normal Ranges: 1.003 -1.030 pH, ur 5.5 4.5 - 8.0 CDR HISTOR ICAL RESULTS Comment:Normal ranges: 4.5-8 .0 Protein, ur, quant 30 Negative mg/dl CDR HISTORICAL RESULTS Glucose, ur, quant Negative Negative mg/dl CDR HISTORICAL RESULTS Ketones, ur Trace(A) Negative CDR HIST ORICAL RESULTS Bilirubin, ur Negative Negative CDR HI STORICAL RESULTS U Blood Negative Negative CDR HISTOR ICAL RESULTS Urobilinogen, quant, ur 0.2 0.2 - 1.0 Terrell Units/dl CDR HISTORICAL RESULTS Comment:Normal Ranges: 0.2-1 .0 EU/dL Nitrites, ur Negative Negative CDR HIS TORICAL RESULTS Leukocyte esterase, ur Trace(A) Negative CDR HISTORICAL RESULTS Urine 02/05/2016 5:10 AM CDT Narrative CDR HISTORICAL RESULTS - 02/05/2016 5:28 AM CDT CLEAN VOID Historical Provider LAB BLOOD ORDERABLES Jessica l Result CDR HISTORICAL RESULTS * Surgical pathology (02/05/2016) Narrative 02/05/2016 Ordered by an unspecified provider. us Historical Provider LAB PATHOLOGY ORDERABLES Final Result documented in this encounter Visit Diagnoses Diagnosis Other mechanical complication of internal fixation device of left femur, initial encounter ([facility]) Type 2 diabetes mellitus with diabetic neuropathy ([facility]) ([facility]) Other fracture of head and neck of left femur, subsequent encounter for closed fracture with nonunion Exposure to other specified factors, initial encounter Other surgical procedures as the cause of abnormal reaction of the patient, or of later complication, without mention of misadventure at the time of the procedure Unspecified fall, subsequent encounter Unspecified place or not applicable Essential (primary) hypertension Unspecified essential hypertension Gastro-esophageal reflux disease without esophagitis Hyperlipidemia Other and unspecified hyperlipidemia long-term current use of insulin ([facility]) ([facility]) Presence of both artificial knee joints documented in this encounter Care Teams Fur Blender Relationship Specialty Start Date End Date Clayton Sandoval MD [id number] [place] [address] PCP - General 09/30/12 09/26/16 documented as of this encounter
--- OUTSIDE RECORDS SUMMARY | 2024-07-11 22:42 | XMS_ITS | Encounter Summary ---
Author Organization [facility] Address [address] [place] [address] Care Team Providers Care Repairer And Checker Name Role Phone Clayton Sandoval MD Primary Care Provider + Encounter Details Date Type Department Care Team (Late st Contact Info) Description 12/22/2015 10:49 AM CDT - 12/22/2015 11:59 PM T Hospital Encounter [facility] NIESHACONDavid Malone MD [address] [place] [address] DR HARDY [address] [place] [id number] Primary osteoarthritis of both hips Social History Tobacco Use Types Packs/Day Years Used Date Smoking Tobacco: Never Alcohol Use Standard Drinks/Week Comments Yes 0 (1 standard drink = 0.6 oz pur e alcohol) Comments Unknown Sex and Gender Information Value Date Recorded Sex Assigned at Not on file Legal Sex Female 11:52 PM [employer]PER[employer] Gender Identity Not on file Sexual [...] hours as needed 40 0 09/01/2015 7 blood glucose diagnostic (CONTOUR NEXT STRIPS) [...] as needed 60 2 06/21/2013 2 zoledronic calz-iftlbvwl-n ater (RECLAST) 5 mg/100 mL piggyback tud 1 Syringe 0 08/14/2015 0 zoledronic pjdw-hjmuyale-p ater (RECLAST) 5 mg/100 mL piggyback tud 1 Syringe 0 08/14/2015 7 documented as of this encounter Plan of Treatment Not on file documented as of this encounter Procedures Procedure Name Priority Date/Time Associated Diagnosis Comments URINE (AEROBIC) CULTURE, CDR Routine 12/22/2015 12:10 PM CDT URINE MICROSCOPY Routine 12/22/2015 12:1 0 PM CDT STAPH AUREUS (MRSA/MSSA) CULTURE, CDR Routine 12/22/2015 11:30 AM CDT SERUM ESTIMATED GLOMERULAR FILTRATION RATE Routine 12/22/2015 11:30 AM CDT PLASMA COMPREHENSIVE METABOLIC PANEL Routine 12/22/2015 11:30 AM CDT BLOOD PROTHROMBIN TIME (PT) Routine 12/22/2015 11:30 AM CDT BLOOD PARTIAL THROMBOPLASTIN TIME (PTT) Routine 12/22/2015 11:30 AM CDT BLOOD CELL COUNT (CBC), MORPHOLOGIC EXAM Routine 12/22/2015 11:30 AM CDT BLOOD CELL MORPHOLOGIC EXAM Routine 12/22/2015 11:30 AM CDT URINALYSIS Routine 12/22/2015 7:10 AM CDT ELECTROCARDIOGRAPHY (ECG) 12/22/2015 DISCHARGE LABORATORY CUMULATIVE REPORT 12/22/2015 documented in this encounter Results * (ABNORMAL) Urine microscopy (12/22/2015 12:10 PM CDT) RBC, ur 0 - 2 0 - 2 /hpf HISTORICA L RESULTS WBC, ur 2 - 5(A) 0 - 2 /hpf HISTORICA L RESULTS Bacteria, ur Negative Negative HISTORI MARSHALL RESULTS Hyaline casts 2 - 5(A) 0 - 2 /lpf HISTO RICAL RESULTS Epithelial cells, ur 5 - 10(A) 0 - 2 /hpf HISTORICAL RESULTS Urine 12/22/2015 12:1 0 PM CDT Historical Provider MD LAB BLOOD ORDERABLES Jessica l Result Performing Organization Address [facility]/ZIP Co de Phone Number HISTORICAL RESULTS * Urine (aerobic) culture (12/22/2015 12:10 PM CDT) Urine, clean voided (Unknown) 12/22/2015 12:10 PM CDT Narrative HISTORICAL RESULTS - 12/24/2015 8:21 AM CDT Less than 10,000 colonies/ml of Multiple Gram Positive organisms Routine susceptibility testing not performed. Historical Provider LAB MICROBIOLOGY - GENERA L ORDERABLES Final Result Performing Organization Address [facility] Co de Phone Number HISTORICAL RESULTS * (ABNORMAL) Plasma comprehensive metabolic panel (12/22/2015 11:30 AM CDT) Pathologist [facility] Sodium 137 135 - 145 mmol/L HISTORICAL RESULTS K, pl 4.5 3.5 - 5.1 mmol/L HISTORICAL RESULTS Chloride 98 97 - 110 mmol/L HISTORICAL RESULTS CO2 22 22 - 32 mmol/L HISTORICAL RESULTS A. gap 22(H) 8 - 16 mmol/L HISTORICAL RESULTS Glucose 171 70 - 199 mg/dl HISTORICAL RESULTS Comment: Interpretive Data Note:The glucose [...] data was last revised on 2014. BUN 15.4 8.0 - 25.0 mg/dl HISTORICAL RESULTS Creatinine 1.16(H) 0.60 - 1.10 mg/dl HISTORICAL RESULTS BUN/creat ratio 13 10 - 20 HIST ORICAL RESULTS Calcium 9.7 8.6 - 10.2 mg/dl HISTORICAL RESULTS Protein, sr 7.2 6.0 - 8.4 g/dl HISTORICAL RESULTS Alb 3.8 3.6 - 5.0 g/dl HISTORICAL RESULTS Alk phos 87 40 - 130 Units/L HISTORICAL RESULTS ALT 15 5 - 45 Units/L HISTORICAL RESULTS AST 19 10 - 40 Units/L HISTORICAL RESULTS Bilirubin 0.3 <=1.2 mg/dl HISTORICAL RESULTS Plasma 12/22/2015 11:3 0 AM CDT Historical Provider LAB BLOOD ORDERABLES Jessica reynolds Result Performing Organization Address [facility] de Phone Number HISTORICAL RESULTS * (ABNORMAL) Blood partial thromboplastin time (PTT) (12/22/2015 11:30 AM CDT) PTT 60.7(H) 25.0 - 37.0 seconds HISTORICAL RESULTS Blood specimen (specimen) 12/22/2015 11:30 AM CDT Result [facility] Historical Provider LAB BLOOD ORDERABLES Jessica reynolds Result Performing Organization Address [facility] de Phone Number HISTORICAL RESULTS * Blood prothrombin time (PT) (12/22/2015 11:30 AM CDT) Prothrombin time (PT) 11.8 9.5 - 12.5 seconds HISTORICAL RESULTS INR 1.09 0.90 - 1.20 HISTORIC AL RESULTS Comment: Interpretive Data Recommended ranges for Protime INR: 2.0 - 3.0 Most indications for Warfarin therapy (e.g. Treatment of DVT, PE, bioprosthetic valve replacement, prophylaxis venous thrombosis, atrial fibrillation). 2.5 - 3.5 Mechanical mitral valve or dual mechanical mitral and Aortic valve replacement. Current Interpretive Data was last revised on 2015. Blood specimen (specimen) 12/22/2015 11:30 AM CDT Historical Provider LAB BLOOD ORDERABLES Jessica rodolfo Result Performing Organization Address [facility] de Phone Number HISTORICAL RESULTS * (ABNORMAL) Blood cell morphologic exam (12/22/2015 11:30 AM CDT) Neutrophils 77.5 44.0 - 80.0 % HISTORICAL RESULTS Immature granulocytes 0.4 0.0 - 1.0 % HISTORICAL RESULTS Lymphocytes 14.4 13.0 - 44.0 % HISTORICAL RESULTS Monos 5.0 2.0 - 11.0 % HISTORICAL RESULTS Eosinophils 2.0 0.0 - 6.0 % HISTORICAL RESULTS Basophils 0.7 0.0 - 3.0 % HISTORICAL RESULTS Neutrophils, abs 8.3(H) 1.6 - 7.0 K/cumm HISTORICAL RESULTS Immature granulocyte, abs 0.0 0.0 - 0.2 K/cumm HISTORICAL RESULTS Lymphocytes, abs 1.6 0.5 - 4.3 K/cumm HISTORICAL RESULTS Monocytes, absolute 0.5 0.1 - 1.0 K/cumm HISTORICAL RESULTS Eosinophils, abs 0.2 0.0 - 0.6 K/cumm HISTORICAL RESULTS Basophils, abs 0.1 0.0 - 0.3 K/cumm HISTORICAL RESULTS Blood specimen (specimen) 12/22/2015 11:30 AM CDT us Historical Provider LAB BLOOD ORDERABLES Jessica l Result Performing Organization Address [facility] de Phone Number HISTORICAL RESULTS * (ABNORMAL) Blood cell count (CBC), morphologic exam (12/22/2015 11:30 AM CDT) WBC 10.8(H) 3.8 - 9.8 K/cumm HISTORICAL RESULTS RBC 3.81(L) 3.90 - 5.00 M/cumm HISTORICAL RESULTS Hgb 10.4(L) 12.1 - 15.1 g/dl HISTORICAL RESULTS Hct 32.9(L) 36.1 - 44.3 % HISTORICAL RESULTS MCV 86.4 80.0 - 100.0 fl HISTORICAL RESULTS MCH 27.3 26.7 - 33.7 pg HISTORICAL RESULTS MCHC 31.6(L) 32.7 - 36.0 g/dl HISTORICAL RESULTS Rdw 15.8(H) 11.5 - 14.6 % HISTORICAL RESULTS Platelets 276 140 - 440 K/cumm HISTORICAL RESULTS MPV 9.4 8.0 - 12.0 fl HISTORICAL RESULTS NRBC 0.0 0.0 - 0.0 % HISTORIC AL RESULTS NRBC, abs 0.00 0.00 - 0.00 K/cumm HISTORICAL RESULTS Blood specimen (specimen) 12/22/2015 11:30 AM CDT Historical Provider LAB BLOOD ORDERABLES Jessica l Result Performing Organization Address [facility] Co de Phone Number HISTORICAL RESULTS * Serum estimated glomerular filtration rate (12/22/2015 11:30 AM CDT) Pathologist [facility] eGFR 49 ml/min/1.7 3 m2 HISTORICAL RESULTS Comment: Interpretation of Estimated GFR (eGFR): Normal ?>/= 60 mL/min/1.73m2 Possible Chronic Kidney Disease ??15 - 59 mL/min/1.73m2 Possible Kidney Failure ?< 15 ??mL/min/1.73m2 If -Cymraes multiply value by 1.16. ??Estimated glomerular filtration rate is determined by the CKD-EPI equation recommended by the National Kidney Foundation (KDIGO 2012 Clinical Practice Guideline for the Evaluation and Management of Chronic Kidney Disease. ??Kidney Intnl Suppl Jul 2012;3:1). ??The CKD-EPI equation should not be used in acute renal failure or acute kidney injury and is not valid in children. Serum 12/22/2015 11:3 0 AM CDT Historical Provider LAB BLOOD ORDERABLES Jessica l Result Performing Organization Address [facility] Co de Phone Number HISTORICAL RESULTS * Staph aureus (MRSA/MSSA) Culture (12/22/2015 11:30 AM CDT) Nasal (Unknown) 12/22/2015 1 1:30 AM CDT Impressions HISTORICAL RESULTS - 12/23/2015 11:19 AM CDT Patient's Nasal specimens are processed for Methicillin-resistant Staphylococcus aureus (MRSA) only. Current interpretive data was last revised on 2015. Narrative HISTORICAL RESULTS - 12/23/2015 11:19 AM CDT No Methicillin Resistant Staph aureus cultured Result [facility] Provider LAB MICROBIOLOGY - GENERA L ORDERABLES Final Result Performing Organization Address [facility] de Phone Number HISTORICAL RESULTS * (ABNORMAL) Urinalysis (12/22/2015 7:10 AM CDT) Color, ur Yellow Yellow HISTORICAL RESULTS Clarity, ur Cloudy(A) Clear HISTORIC AL RESULTS Specific gravity, ur 1.019 1.003 - 1.030 HISTORICAL RESULTS Comment:Normal Ranges: 1.003 -1.030 pH, ur 5.0 4.5 - 8.0 HISTORICAL RESULTS Comment:Normal ranges: 4.5-8 .0 Protein, ur, quant Trace Negative mg/dl HISTORICAL RESULTS Glucose, ur, quant Negative Negative mg/dl HISTORICAL RESULTS Ketones, ur Negative Negative HISTORIC AL RESULTS Bilirubin, ur Negative Negative HISTOR ICAL RESULTS U Blood Negative Negative HISTORICAL RESULTS Urobilinogen, quant, ur 0.2 0.2 - 1.0 Terrell Units/dl HISTORICAL RESULTS Comment:Normal Ranges: 0.2-1 .0 EU/dL Nitrites, ur Negative Negative HISTORI MARSHALL RESULTS Leukocyte esterase, ur Trace(A) Negative HISTORICAL RESULTS Urine 12/22/2015 7:10 AM CDT Narrative HISTORICAL RESULTS - 12/22/2015 8:20 AM CDT CLEAN VOID Result [facility] Provider LAB BLOOD ORDERABLES Jessica l Result Performing Organization Address [facility] de Phone Number HISTORICAL RESULTS * DISCHARGE LABORATORY CUMULATIVE REPORT (12/22/2015) Narrative 12/22/2015 Ordered by an unspecified provider. Result [facility] Provider LAB BLOOD ORDERABLES Jessica l Result * ELECTROCARDIOGRAPHY (ECG) (12/22/2015) Narrative 12/22/2015 Ordered by an unspecified provider. Result [facility] Provider ECG ORDERABLES Final Res ult documented in this encounter Visit Diagnoses Diagnosis Primary osteoarthritis of both hips documented in this encounter Care Teams Repairer And Checker Relationship Specialty Start Date End Date Clayton Sandoval MD [address] [place] [address] PCP - General 09/30/12 09/26/16 documented as of this encounter
--- OUTSIDE RECORDS SUMMARY | 2024-07-11 22:42 | XMS_ITS | Encounter Summary ---
Author Organization [facility] Healthcare Address [address] [place] [address] Care Team Providers Care Aircraft Armorer Name Role Phone Clayton Sandoval MD Primary Care Provider + Encounter Details Date Type Department Care Team (Late st Contact Info) Description 08/30/2015 2:29 PM STOCK RECEIVER - 08/30/2015 11:59 PM STOCK RECEIVER Hospital Encounter [facility] Diaz, Manoj Hernandez MD [address] [place] [address] Closed nondisplaced intertrochanteric fracture of left femur with routine healing; Exposure to other specified factors, subsequent encounter; Presence of left artificial knee joint Social History Tobacco Use Types Packs/Day Years Used Date Smoking Tobacco: Never Alcohol Use Standard Drinks/Week Comments Yes 0 (1 standard drink = 0.6 oz pur e alcohol) Comments Unknown Sex and Gender Information Value Date Recorded Sex Assigned at Not on file Legal Sex Female 11:52 PM STOCK RECEIVER Gender Identity Not on file Sexual Orientation [...] 0 vial 0 07/21/2015 7 insulin glargine (TOUJEO SOLOSTAR) 300 unit/mL [...] as needed 60 2 06/21/2013 2 zoledronic xpmg-fhwguuqk-p ater (RECLAST) 5 mg/100 mL piggyback tud 1 Syringe 0 08/14/2015 0 zoledronic cxqh-bbjsqvif-k ater (RECLAST) 5 mg/100 mL piggyback tud 1 Syringe 0 08/14/2015 7 documented as of this encounter Plan of Treatment Not on file documented as of this encounter Procedures Procedure Name Priority Date/Time Associated Diagnosis Comments XR FEMUR 1 VW Routine 08/30/2015 3:03 PM STOCK RECEIVER documented in this encounter Results * XR Femur 1 VW (08/30/2015 3:03 PM STOCK RECEIVER) Anatomical Region Laterality Modality N/A Radiographic Pamela ging 08/30/2015 3:03 PM STOCK RECEIVER Narrative 08/30/2015 8:32 PM STOCK RECEIVER vm XR Femur L ROUTINE ??Acc#: ??[id number] DATE OF EXAM: ??Aug 30 2015 CLINICAL HISTORY: Lateral pain. ??Recently fractured the hip. RESULT: AP and lateral views of the left hip were obtained. ??Comparison with a prior study of 07/26/15 is made. ??An internally stabilized intertrochanteric femur fracture is noted. ??Fracture is unchanged in position or alignment since the prior study. ??Calcified callus has developed. ??No evidence of hardware failure or loosening is seen. ??An intact appearing knee prosthesis is noted. IMPRESSION: 1. HEALING REACTION AROUND THE PROXIMAL FEMORAL FRACTURE WHICH HAS PREVIOUSLY BEEN INTERNALLY STABILIZED. 2. INTACT APPEARING KNEE PROSTHESIS. Interpreting Physician: ??DEBORAH KIM M.D. ??Read on: ??Aug 30 2015 3:07P Transcribed by: ??lidia ??On: Aug 30 2015 ??8:10P Approved Electronically by: ??DEBORAH KIM M.D. ??on: ??Aug 30 2015 8:32P Attending: ??MANOJ DIAZ Requesting: ??DR MANOJ DIAZ Requesting Fax: ??[phone] Attending Fax: ??-- Attending ID: ??[id number] Requesting ID: ??[id number] Report To 1 ID: ??[id number] Report To 1 Name: ??MANOJ DIAZ Report To 1 FAX: ??-- NextGen Order #: Procedure Note Provider, MD Sofiya - 11/07/2016 XR Femur L ROUTINE Acc#: [id number] DATE OF EXAM: Aug 30 2015 CLINICAL HISTORY: Lateral pain. Recently fractured the hip. RESULT: AP and lateral views of the left hip were obtained. Comparison with aprior study of 07/26/15 is made. An internally stabilizedintertrochanteric femur fracture is noted. Fracture is unchanged inposition or alignment since the prior study. Calcified callus hasdeveloped. No evidence of hardware failure or loosening is seen. Anintact appearing knee prosthesis is noted. IMPRESSION: 1. HEALING REACTION AROUND THE PROXIMAL FEMORAL FRACTURE WHICH HASPREVIOUSLY BEEN INTERNALLY STABILIZED. 2. INTACT APPEARING KNEE PROSTHESIS. Interpreting Physician: DEBORAH KIM M.D. Read on: Aug 30 20153:07P Transcribed by: lidia On: Aug 30 2015 8:10P Approved Electronically by: DEBORAH KIM M.D. on: Aug 30 20158:32P Attending: MANOJ DIAZ Requesting: DR MANOJ DIAZ Requesting Attending Fax: -- Attending ID: [id number] Requesting ID: [id number] Report To 1 ID: [id number] Report To 1 Name: MANOJ DIAZ Report To 1 FAX: -- NextGen Order #: us Historical Provider MD LAZO XR PROCEDURES Final R esult documented in this encounter Visit Diagnoses Diagnosis Closed nondisplaced intertrochanteric fracture of left femur with routine healing Exposure to other specified factors, subsequent encounter Presence of left artificial knee joint documented in this encounter Care Teams Aircraft Armorer Relationship Specialty Start Date End Date Clayton Sandoval MD [address] [place] [address] PCP - General 09/30/12 09/26/16 documented as of this encounter
--- OUTSIDE RECORDS SUMMARY | 2024-07-11 22:42 | XMS_ITS | Encounter Summary ---
Author Organization [facility] Healthcare Address [address] [place] [address] Care Team Providers Care Antichecking Iron Worker Name Role Phone Clayton Sandoval MD Primary Care Provider + Encounter Details Date Type Department Care Team (Late st Contact Info) Description 06/17/2016 4:47 PM ASSISTANT TENNIS PROFESSIONAL - 06/17/2016 11:59 PM [facility] Hospital Encounter [facility] Clayton Wyman MD [address] [place] [address] Encounter for general adult medical examination without abnormal findings Social History Tobacco Use Types Packs/Day Years Used Date Smoking Tobacco: Never Alcohol Use Standard Drinks/Week Comments Yes 0 (1 standard drink = 0.6 oz pur e alcohol) Comments Unknown Sex and Gender Information Value Date Recorded Sex Assigned at Not on file Legal Sex Female 11:52 PM ASSISTANT TENNIS PROFESSIONAL Gender Identity Not on file Sexual [...] as needed 60 2 06/21/2013 2 zoledronic venr-foxklcwa-c ater (RECLAST) 5 mg/100 mL piggyback tud 1 Syringe 0 08/14/2015 0 zoledronic rbbs-prtucqdv-v ater (RECLAST) 5 mg/100 mL piggyback tud 1 Syringe 0 08/14/2015 7 documented as of this encounter Plan of Treatment Not on file documented as of this encounter Visit Diagnoses Diagnosis Encounter for general adult medical examination without abnormal findings documented in this encounter Care Teams Antichecking Iron Worker Relationship Specialty Start Date End Date Clayton Sandoval MD [address] [place] [address] PCP - General 09/30/12 09/26/16 documented as of this encounter
--- OUTSIDE RECORDS SUMMARY | 2024-07-11 22:42 | XMS_ITS | Encounter Summary ---
Author Organization [facility] Healthcare Address [address] [place] [address] Care Team Providers Care Home Care Coordinator Name Role Phone Clayton Sandoval MD Primary Care Provider + Encounter Details Date Type Department Care Team (Late st Contact Info) Description 10/18/2015 12:39 PM CDT - 10/18/2015 11:59 PM CDT Hospital En[place] [address] [facility] [address] [place] [address] Dyspnea; Shortness of breath Social History Tobacco Use Types Packs/Day Years Used Date Smoking Tobacco: Never Alcohol Use Standard Drinks/Week Comments Yes 0 (1 standard drink = 0.6 oz pur e alcohol) Comments Unknown Sex and Gender Information Value Date Recorded Sex Assigned at Not on file Legal Sex Female 11:52 PM HUMAN RESOURCES ADMINISTRATOR Gender Identity Not on file Sexual [...] as needed 60 2 06/21/2013 2 zoledronic cbep-bctmjhxl-f ater (RECLAST) 5 mg/100 mL piggyback tud 1 Syringe 0 08/14/2015 0 zoledronic sdxi-nkezwmfu-z ater (RECLAST) 5 mg/100 mL piggyback tud 1 Syringe 0 08/14/2015 7 documented as of this encounter Plan of Treatment Not on file documented as of this encounter Procedures Procedure Name Priority Date/Time Associated Diagnosis Comments CHEST RADIOGRAPHY, FRONTAL (AP), LATERAL Routine 10/18/2015 1:10 PM CDT documented in this encounter Results * CHEST RADIOGRAPHY, FRONTAL (AP), LATERAL (10/18/2015 1:10 PM CDT) Anatomical Region Laterality Modality N/A Radiographic Pamela ging 10/18/2015 1:10 PM CDT Narrative 10/18/2015 3:58 PM CDT DATE OF EXAM: ??Apr ??6 2015 ??1:10PM Acc#: ??[id number] ??EDX 0167 - XR Chest 2 Views ?? DIAGNOSIS: ??DYSPNEA, UNSPECIFIED CLINICAL HISTORY: ?? SOB RESULT: \ TWO-VIEW CHEST HISTORY 65-year-old woman, shortness of breath. When compared with the study of 09/14/14, heart size upper limits of normal. Hyperinflated lungs with flattening of the diaphragms. No acute infiltrates, pleural fluid or failure. Minor scarring left lung base. Degeneration thoracic spine. IMPRESSION: ?\ SUSPECT COPD. COMMERCIAL LINES ASSISTANT: ??DM2 TRANSCRIBE DATE/TIME: ??Oct ??6 2015 ??3:29P RADIOLOGIST: ??HANS BENSON M.D. ??READ ON: ??Apr ??6 2015 ??1:14P ORDERING DR: TITO PIERRE M.D. ? THIS DOCUMENT HAS BEEN ELECTRONICALLY SIGNED BY: ??HANS BENSON M.D. ??ON: ??Oct ??6 2015 ??3:58P Attending: ??GERRI, ??TITO Requesting: ??GERRI, ??TITO Requesting Fax: ??[phone] Attending Fax: ??[phone] Attending ID: ??[id number] Requesting ID: ??[id number] Report To 1 ID: ?? Report To 1 Name: ??, ?? Report To 1 FAX: ??-- Report To 2 ID: ?? Report To 2 Name: ??, ?? Report To 2 FAX: ??-- NextGen Order #: ?? Procedure Note Provider, MD Sofiya - 11/07/2016 DATE OF EXAM: Oct 18 2015 1:10PM Acc#: [id number] EDX 0167 - XR Chest 2 Views DIAGNOSIS: DYSPNEA, UNSPECIFIED CLINICAL HISTORY: SOB RESULT: \ TWO-VIEW CHEST HISTORY 65-year-old woman, shortness of breath. When compared with the study of 09/14/14, heart size upper limits of normal. Hyperinflated lungs with flattening of the diaphragms. No acute infiltrates, pleural fluid or failure. Minor scarring left lung base. Degeneration thoracic spine. IMPRESSION: \ SUSPECT COPD. COMMERCIAL LINES ASSISTANT: CHIDI TRANSCRIBE DATE/TIME: Oct 18 2015 3:29P RADIOLOGIST: HANS BENSON M.D. READ ON: Oct 18 2015 1:14P ORDERING DR: TITO PIERRE M.D. THIS DOCUMENT HAS BEEN ELECTRONICALLY SIGNED BY: HANS BENSON M.D. ON: Oct 18 2015 3:58P Attending: TITO PIERRE Requesting: TITO PIERRE Requesting Attending Attending ID: [id number] Requesting ID: [id number] Report To 1 ID: Report To 1 Name: , Report To 1 FAX: -- Report To 2 ID: Report To 2 Name: , Report To 2 FAX: -- NextGen Order #: us Historical Provider IMAriel XR PROCEDURES Final R esult documented in this encounter Visit Diagnoses Diagnosis Dyspnea Other dyspnea and respiratory abnormality Shortness of breath documented in this encounter Care Teams Home Care Coordinator Relationship Specialty Start Date End Date Clayton Sandoval MD [address] [address] PCP - General 09/30/12 09/26/16 documented as of this encounter
--- OUTSIDE RECORDS SUMMARY | 2024-07-11 22:42 | XMS_ITS | Encounter Summary ---
Author Organization [facility] Healthcare Address [address] [place] [address] Care Team Providers Care Floor Specialist Name Role Phone Clayton Sandoval MD Primary Care Provider + Encounter Details Date Type Department Care Team (Late st Contact Info) Description 01/19/2016 11:31 AM CDT - 01/19/2016 11:59 PM T Hospital Encounter CH Clayton Wyman MD [address] [place] [address] Type 2 diabetes mellitus without complications (CMS/HCC); Mixed hyperlipidemia Social History Tobacco Use Types Packs/Day Years Used Date Smoking Tobacco: Never Alcohol Use Standard Drinks/Week Comments Yes 0 (1 standard drink = 0.6 oz pur e alcohol) Comments Unknown Sex and Gender Information Value Date Recorded Sex Assigned at Not on file Legal Sex Female 11:52 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 Gender Identity Not on file Sexual Orientation [...] as needed 60 2 06/21/2013 2 zoledronic gheb-axxchudu-a ater (RECLAST) 5 mg/100 mL piggyback tud 1 Syringe 0 08/14/2015 0 zoledronic gybq-tdgecefq-o ater (RECLAST) 5 mg/100 mL piggyback tud 1 Syringe 0 08/14/2015 7 documented as of this encounter Plan of Treatment Not on file documented as of this encounter Visit Diagnoses Diagnosis Type 2 diabetes mellitus without complications (CMS/HCC) (HCC) Mixed hyperlipidemia documented in this encounter Care Teams Floor Specialist Relationship Specialty Start Date End Date Clayton Sandoval MD [address] [place] [address] PCP - General 09/30/12 09/26/16 documented as of this encounter
--- OUTSIDE RECORDS SUMMARY | 2024-07-11 22:42 | XMS_ITS | Encounter Summary ---
Author Organization [facility] Healthcare Address [address] [place] [address] Care Team Providers Care Auto Bumper Mechanic Name Role Phone Clayton Sandoval MD Primary Care Provider + Encounter Details Date Type Department Care Team (Late st Contact Info) Description 11/01/2015 2:53 PM CDT - 11/01/2015 11:59 PM CDT Hospital Encounter CH Clayton Wyman MD [address] [place] [address] Type 2 diabetes mellitus with hyperglycemia (CMS/[facility]) Social History Tobacco Use Types Packs/Day Years Used Date Smoking Tobacco: Never Alcohol Use Standard Drinks/Week Comments Yes 0 (1 standard drink = 0.6 oz pur e alcohol) Comments Unknown Sex and Gender Information Value Date Recorded Sex Assigned at Not on file Legal Sex Female 11:52 PM CODING SPECIALIST Gender Identity Not on file Sexual [...] as needed 60 2 06/21/2013 2 zoledronic kmyc-mquknaje-u ater (RECLAST) 5 mg/100 mL piggyback tud 1 Syringe 0 08/14/2015 0 zoledronic kpng-ajmxfggb-x ater (RECLAST) 5 mg/100 mL piggyback tud 1 Syringe 0 08/14/2015 7 documented as of this encounter Plan of Treatment Not on file documented as of this encounter Procedures Procedure Name Priority Date/Time Associated Diagnosis Comments URINE MICROBIOLOGY Routine 11/01/2015 12 :00 AM CDT documented in this encounter Results * Urine Microbiology (11/01/2015 12:00 AM CDT) 11/01/2015 Narrative HISTORICAL RESULTS - 11/03/2015 4:46 PM CDT [facility] ?Patient Name: ?SUSANA RENTERIA ?Med. Rec#: ?? [id number] ?Pt. Acct.#: ??[id number] ?Birthdate: ?? 1950 ?Age / Sex: ?? 65Y / F ?Location: ?[facility] ?Admit Date: ??10/31/2015 ?Discharge Date: ? 10/31/2015 ?Doctor: ?Patient Type: ?CH Ancillary - Insur Culture, Urine ? Collected: 11/01/2015 14:53 Specimen: Urine ?? Specimen Source: Clean Voided Specimen Status: Final ??Last Update: 11/03/2015 10:00 Organism ?? Less than 10,000 cfu/ml of ?? Gram negative bacilli Organism ?? 10,000 - 50,000 cfu/ml of ?? multiple Gram positive organisms Comment ? This culture result is consistent with contamination ?? by normal genital-perineal geovani. us Historical Provider LAB MICROBIOLOGY - GENERA L ORDERABLES Final Result HISTORICAL RESULTS documented in this encounter Visit Diagnoses Diagnosis Type 2 diabetes mellitus with hyperglycemia (CMS/HCC) (HCC) documented in this encounter Care Teams Auto Bumper Mechanic Relationship Specialty Start Date End Date Clayton Sandoval MD [address] [place] [address] PCP - General 09/30/12 09/26/16 documented as of this encounter
--- OUTSIDE RECORDS SUMMARY | 2024-07-11 22:42 | XMS_ITS | Encounter Summary ---
Author Organization [facility] Healthcare Address [address] [place] [address] Care Team Providers Care Patents Examiner Name Role Phone Clayton Sandoval MD Primary Care Provider + Encounter Details Date Type Department Care Team (Latest Contact Info) Description 10/16/2016 1:49 PM CDT - 10/16/2016 11:59 PM CDT Hospital Encounter [place] [address] [facility] [address] [place] [address] Discharge Disposition: Discharge to home or self care Social History Tobacco Use Types Packs/Day Years Used Date Smoking Tobacco: Never Alcohol Use Standard Drinks/Week Comments Yes 0 (1 standard drink = 0.6 oz pur e alcohol) Comments Unknown Sex and Gender Information Value Date Recorded Sex Assigned at Not on file Legal Sex Female 11:52 PM GRINDER SET UP OPERATOR THREAD Gender Identity Not on file Sexual Orientation [...] one 1 vial 0 07/18/2016 7 zoledronic jyeq-smyhnqga-q ater (RECLAST) 5 mg/100 mL piggyback tud 1 Syringe 0 08/14/2015 0 zoledronic ukit-qafnbwvf-l ater (RECLAST) 5 mg/100 mL piggyback tud 1 Syringe 0 08/14/2015 7 documented as of this encounter Discharge Disposition Disposition Code Departure Means Destination Discharge to home or self care documented in this encounter Plan of Treatment Not on file documented as of this encounter Procedures Procedure Name Priority Date/Time Associated Diagnosis Comments XR CHEST PA LATERAL 2 VIEWS Routine 10/16/2016 7:14 PM CDT documented in this encounter Results * XR Chest Pa Lateral 2 Vw (10/16/2016 7:14 PM CDT) Anatomical Region Laterality Modality Body, Chest N/A Radiographic Pamela ging 10/16/2016 7:14 PM CDT Narrative 10/16/2016 7:14 PM CDT DATE OF EXAM: ??Apr ??2016 ??2:14PM Acc#: ??[id number] ??EDX [id number] - XR Chest 2 Views ?? DIAGNOSIS: ??SARCOIDOSIS OF LUNG CLINICAL HISTORY: ?? SARCOIDOSIS OF LUNG RESULT: EXAM: Chest, 2 views HISTORY: Sarcoidosis; shortness of breath TECHNIQUE: PA and lateral views of the chest were obtained on 10/16/2016. COMPARISON: Chest x-ray performed on 10/18/2015 FINDINGS: No focal consolidation, pleural effusion, or pneumothorax is identified. ??The heart is not enlarged. ??There is no pulmonary vascular congestion. ??Bilateral hilar fullness is evident which may relate to bilateral hilar adenopathy consistent to the patient's known history of sarcoidosis. ??Mild intervertebral degenerative changes are present in the thoracic spine. IMPRESSION: Bilateral hilar fullness may indicate bilateral hilar adenopathy incident to the patient's known history of sarcoidosis. ??No acute pulmonary process. Electronically signed by: Maxine Lofton M.D. ? WOOD LATHE OPERATOR: ??PSC TRANSCRIBE DATE/TIME: ??Oct ??2016 ??2:33P RADIOLOGIST: ??MAXINE LOFTON M.D. ??READ ON: ??Oct ??2016 ??2:37P ORDERING DR: TITO PIERRE M.D. ? THIS DOCUMENT HAS BEEN ELECTRONICALLY SIGNED BY: ??KIRSTY Ang, MAXINE ??ON: ??Oct ??2016 ??2:33P Attending: ??GERRI, ??TITO Requesting: ??GERRI, ??TITO Requesting Fax: ??[phone] Attending Fax: ??[phone] Attending ID: ??[id number] Requesting ID: ??[id number] Report To 1 ID: ?? Report To 1 Name: ??, ?? Report To 1 FAX: ??-- Report To 2 ID: ?? Report To 2 Name: ??, ?? Report To 2 FAX: ??-- NextGen Order #: ?? Procedure Note Miscellaneous, Notinfile / Provider, MD Sofiya - 12/05/2016 DATE OF EXAM: Oct 16 2016 2:14PM Acc#: [id number] EDX 0167 - XR Chest 2 Views DIAGNOSIS: SARCOIDOSIS OF LUNG CLINICAL HISTORY: SARCOIDOSIS OF LUNG RESULT: EXAM: Chest, 2 views HISTORY: Sarcoidosis; shortness of breath TECHNIQUE: PA and lateral views of the chest were obtained on 10/16/2016. COMPARISON: Chest x-ray performed on 10/18/2015 FINDINGS: No focal consolidation, pleural effusion, or pneumothorax is identified. The heart is not enlarged. There is no pulmonary vascular congestion. Bilateral hilar fullness is evident which may relate to bilateral hilar adenopathy consistent to the patient's known history of sarcoidosis. Mild intervertebral degenerative changes are present in the thoracic spine. IMPRESSION: Bilateral hilar fullness may indicate bilateral hilar adenopathy incident to the patient's known history of sarcoidosis. No acute pulmonary process. Electronically signed by: Maxine Lofton M.D. WOOD LATHE OPERATOR: PSC TRANSCRIBE DATE/TIME: Oct 16 2016 2:33P RADIOLOGIST: MAXINE LOFTON M.D. READ ON: Oct 16 2016 2:37P ORDERING DR: TITO PIERRE M.D. THIS DOCUMENT HAS BEEN ELECTRONICALLY SIGNED BY: MAXINE LOFTON M.D. ON: Oct 16 2016 2:33P Attending: TITO PIERRE Requesting: TITO PIERRE Requesting Attending Attending ID: [id number] Requesting ID: [id number] Report To 1 ID: Report To 1 Name: , Report To 1 FAX: -- Report To 2 ID: Report To 2 Name: , Report To 2 FAX: -- NextGen Order #: us Not In File Miscellaneous IMG XR PROCEDURES Jessica l Result documented in this encounter Visit Diagnoses Not on filedocumented in this encounter Care Teams Patents Examiner Relationship Specialty Start Date End Date Clayton Sandoval MD [address] [facility] [place] [address] PCP - General 10/11/16 08/02/19 documented as of this encounter
--- OUTSIDE RECORDS SUMMARY | 2024-07-11 22:42 | XMS_ITS | Encounter Summary ---
Author Organization [facility] Healthcare Address [address] [place] [address] Care Team Providers Care Route Service Representative Name Role Phone Clayton Helms MD Primary Care Provider + Encounter Details Date Type Department Care Team (Late st Contact Info) Description 07/10/2016 1:49 PM INSTALLATION SUPERVISOR - 07/10/2016 11:59 PM [facility] Hospital Encounter [facility] Clayton Wyman MD [address] [place] [address] Encounter for screening mammogram for malignant neoplasm of breast Social History Tobacco Use Types Packs/Day Years Used Date Smoking Tobacco: Never Alcohol Use Standard Drinks/Week Comments Yes 0 (1 standard drink = 0.6 oz pur e alcohol) Comments Unknown Sex and Gender Information Value Date Recorded Sex Assigned at Not on file Legal Sex Female 11:52 PM INSTALLATION SUPERVISOR Gender Identity Not on file Sexual [...] as needed 60 2 06/21/2013 2 zoledronic hybh-eunkczus-h ater (RECLAST) 5 mg/100 mL piggyback tud 1 Syringe 0 08/14/2015 0 zoledronic qacs-albkyjhe-k ater (RECLAST) 5 mg/100 mL piggyback tud 1 Syringe 0 08/14/2015 7 documented as of this encounter Plan of Treatment Not on file documented as of this encounter Procedures Procedure Name Priority Date/Time Associated Diagnosis Comments DIGITAL MAMMOGRAPHY Routine 07/10/2016 2 :43 PM INSTALLATION SUPERVISOR documented in this encounter Results * DIGITAL MAMMOGRAPHY (07/10/2016 2:43 PM INSTALLATION SUPERVISOR) Anatomical Region Laterality Modality Breast Mammography 07/10/2016 2:43 PM INSTALLATION SUPERVISOR Narrative 07/10/2016 3:26 PM INSTALLATION SUPERVISOR Screening Mamm Bi ??Acc#: ??[id number] DATE OF EXAM: ??Jul 10 2016 Performed by: isabel CLINICAL HISTORY: Routine screening, no current complaints. RESULT: Four view screening mammogram is compared to a prior exam dated 04/15/15. There has been no interval change. ??The breasts are heterogeneously dense. ??Dystrophic calcifications, fat necrosis and oil cysts are seen in both breasts, status post reduction mammoplasty. ??This is unchanged compared to the previous study. ??There are no new masses or suspicious microcalcifications. Digital technology was employed plus computer-aided detection software (R2) was utilized in interpretation of these images. ??This facility utilizes a reminder system to notify patients of yearly mammograms. IMPRESSION: BI-RADS CATEGORY 2 - BENIGN FINDINGS. ??RECOMMEND ROUTINE FOLLOW-UP. Interpreting Physician: ??DR ALLEN DENNY M.D. ??Read on: ??Jul 10 2016 2:43P Transcribed by: ??mrr ??On: Jul 10 2016 ??3:06P Approved Electronically by: ??VANDERDR ALLEN CHOU M.D. ??on: ??Jul 10 2016 3:25P Attending: ??CLAYTON HELMS Requesting: ??DR CLAYTON HELMS Requesting Fax: ??[phone] Attending Fax: ??-- Attending ID: ??[id number] Requesting ID: ??[id number] Report To 1 ID: ??[id number] Report To 1 Name: ??CLAYTON HELMS Report To 1 FAX: ??-- NextGen Order #: Procedure Note Provider, MD Sofiya - 11/20/2016 Screening Mamm Bi Acc#: [id number] DATE OF EXAM: Jul 10 2016 Performed by: isabel CLINICAL HISTORY: Routine screening, no current complaints. RESULT: Four view screening mammogram is compared to a prior exam dated 04/15/15.There has been no interval change. The breasts are heterogeneously dense.Dystrophic calcifications, fat necrosis and oil cysts are seen in bothbreasts, status post reduction mammoplasty. This is unchanged compared tothe previous study. There are no new masses or suspiciousmicrocalcifications. Digital technology was employed plus computer-aideddetection software (R2) was utilized in interpretation of these images.This facility utilizes a reminder system to notify patients of yearlymammograms. IMPRESSION: BI-RADS CATEGORY 2 - BENIGN FINDINGS. RECOMMEND ROUTINE FOLLOW-UP. Interpreting Physician: DR ALLEN DENNY M.D. Read on: Jul 10 20162:43P Transcribed by: mrr On: Jul 10 2016 3:06P Approved Electronically by: EDUIN Ang, DR VILLA on: Jul 10 20163:25P Attending: CLAYTON HELMS Requesting: DR CLAYTON HELMS Requesting Attending Fax: -- Attending ID: [id number] Requesting ID: [id number] Report To 1 ID: [id number] Report To 1 Name: CLAYTON HELMS Report To 1 FAX: -- NextGen Order #: Historical Provider MD [facility] MAMMO PROCEDURES Jessica l Result documented in this encounter Visit Diagnoses Diagnosis Encounter for screening mammogram for malignant neoplasm of breast documented in this encounter Care Teams Route Service Representative Relationship Specialty Start Date End Date Clayton Helms MD [address] [place], [place] [address] PCP - General 09/30/12 09/26/16 documented as of this encounter
--- OUTSIDE RECORDS SUMMARY | 2024-07-11 22:42 | XMS_ITS | Encounter Summary ---
Author Organization [facility] Healthcare Address [address] [place] [address] Care Team Providers Care Grinding Machine Operator Name Role Phone Clayton Sandoval MD Primary Care Provider + Encounter Details Date Type Department Care Team (Late st Contact Info) Description 01/05/2016 9:45 AM CDT - 01/05/2016 11:59 PM T Hospital Encounter [facility] Clayton Wyman MD [address] [place] [address] Anemia Social History Tobacco Use Types Packs/Day Years Used Date Smoking Tobacco: Never Alcohol Use Standard Drinks/Week Comments Yes 0 (1 standard drink = 0.6 oz pur e alcohol) Comments Unknown Sex and Gender Information Value Date Recorded Sex Assigned at Not on file 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 Sex 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:52 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 Gender Identity Not on file Sexual Orientation [...] as needed 60 2 06/21/2013 2 zoledronic mrog-gjvtfcbz-u ater (RECLAST) 5 mg/100 mL piggyback tud 1 Syringe 0 08/14/2015 0 zoledronic lwjb-oxvoehtq-l ater (RECLAST) 5 mg/100 mL piggyback tud 1 Syringe 0 08/14/2015 7 documented as of this encounter Plan of Treatment Not on file documented as of this encounter Visit Diagnoses Diagnosis Anemia Unspecified anemia documented in this encounter Care Teams Grinding Machine Operator Relationship Specialty Start Date End Date Clayton Sandoval MD [address] [place] [address] PCP - General 09/30/12 09/26/16 documented as of this encounter
--- OUTSIDE RECORDS SUMMARY | 2024-07-11 22:42 | XMS_ITS | Encounter Summary ---
Author Organization [facility] Healthcare Address [address] [place] [address] Care Team Providers Care Hydrochloric Area Supervisor Name Role Phone Clayton Helms MD Primary Care Provider + Encounter Details Date Type Department Care Team (Late st Contact Info) Description 06/30/2015 4:35 PM [facility] - 07/14/2015 10:43 AM [facility] [[email or web address] Hospital Encounter [facility] Clayton Wyman MD [id number] [place] [id number] Other fracture of head and neck of left femur, subsequent encounter for closed fracture with routine healing; Body mass index (BMI) of 40.0-44.9 in adult (CMS/HCC); Morbid (severe) obesity due to excess calories (HCC); Polyneuropathy (CMS/HCC); Sarcoidosis (CMS/HCC); Essential (primary) hypertension; Type 2 diabetes mellitus without complications (CMS/HCC); Presence of right artificial knee joint Social History Tobacco Use Types Packs/Day Years Used Date Smoking Tobacco: Never Alcohol Use Standard Drinks/Week Comments Yes 0 (1 standard drink = 0.6 oz pur e alcohol) Comments Unknown Sex and Gender Information Value Date Recorded Sex Assigned at Not on file Legal Sex Female 11:52 PM [employer] Gender Identity Not on file Sexual Orientation Not on file documented as of this encounter Last Filed Vital Signs Vital Sign Reading Time Taken Comments Blood Pressure 148/62 07/14/2015 7:28 AM [employer] Pulse 72 07/14/2015 8:53 AM [employer] Temperature - - Respiratory Rate - - Oxygen Saturation - - Inhaled Oxygen Concentration - - Weight 110.6 kg (243 lb 13.3 oz) 2014 12:25 PM [employer] Height 167.6 cm (5' 5.98 ) 07/12/2015 1 2:25 PM [employer] Body Mass Index 39.37 07/12/2015 12:25 PM [employer] documented in this encounter Discharge Summaries * Provider, MD Sofiya - 07/14/2015 12:00 AM [facility] DISCHARGE SUMMARY Patient: SUSANA RENTERIA Account: [id number] Room No: 111-01 : 1950 Patient Type: IP Attend.: Clayton Helms M.D. Admit Date: 06/30/2015 Dict.: Clayton Helms M.D. Disch. Date: 07/14/2015 Final Diagnoses: 1. Hip fracture rehabilitation, status post open reduction and internal fixation. 2. Type 2 diabetes mellitus. 3. Sarcoidosis. 4. Dyslipidemia. 5. Hypertension. 6. Peripheral neuropathy. Disposition: The patient is discharged home with home health, PT, OT, to follow up with Dr. Diaz, orthopedic surgery, as instructed. I will see her back in the office in 2 weeks. Discharge Medications: Please refer to the discharge medication reconciliation list. Clinical Resume: The patient was a resident of the [place] unit for subacute care, during which time she underwent physical therapy and occupational therapy post hip fracture, open reduction and internal fixation. She was eventually discharged home in improved and stable condition, to be followed as noted. Course was otherwise uneventful. Electronically Authenticated by: Clayton Helms MD On 09/13/2015 12:58 PM [employer] Clayton Helms M.D. CG/at TD: 09/13/2015 11:30 documented in this encounter Medications at Time of Discharge blood-glucose meter (CONTOUR NEXT USB METER) misc test as directed 1 each 0 07/04/2014 blood glucose diagnostic (CONTOUR NEXT STRIPS) strip USE ONE STRIP IN METER THREE TIMES A DAY 300 strip 3 07/04/2014 0 blood glucose diagnostic (CONTOUR NEXT STRIPS) strip USE ONE STRIP IN METER THREE TIMES A DAY 300 strip 11 07/04/2014 1 calcium carbonate-vitam in D3 500 mg(1,250mg) -400 unit tablet Take one by mouth two times per day 0 0 08/10/2007 4 fluticasone (FLONASE) 50 mcg/actuation nasal spray inhale 2 spray by Intranasal route every day in each nostril 0 05/26/2012 0 gabapentin (NEURONTIN) 300 mg capsule take 1 capsule (300MG) by ORAL route 3 times every day 0 07/02/2012 7 glimepiride (AMARYL) 4 mg tablet TAKE ONE [...] TWICE A DAY 120 11 06/24/[address] (PROTONIX) 40 mg EC [...] Associated Diagnosis Comments BLOOD GLUCOSE, POC Routine 07/14/2015 6: 36 AM [employer] DISCHARGE LABORATORY CUMULATIVE REPORT 07/14/2015 BLOOD GLUCOSE, POC Routine 07/13/2015 8: 20 PM [employer] BLOOD GLUCOSE, POC Routine 07/13/2015 5: 19 PM [employer] BLOOD GLUCOSE, POC Routine 07/13/2015 11 :22 AM [employer] BLOOD GLUCOSE, POC Routine 07/13/2015 6: 30 AM [employer] BLOOD GLUCOSE, POC Routine 07/12/2015 8: 18 PM [employer] BLOOD GLUCOSE, POC Routine 07/12/2015 5: 32 PM [employer] BLOOD GLUCOSE, POC Routine 07/12/2015 11 :22 AM [employer] BLOOD GLUCOSE, POC Routine 07/12/2015 6: 13 AM [employer] BLOOD GLUCOSE, POC Routine 07/11/2015 9: 39 PM [employer] BLOOD GLUCOSE, POC Routine 07/11/2015 5: 25 PM [employer] XR HIP 2+ VW Routine 07/11/2015 1:19 PM [employer] BLOOD GLUCOSE, POC Routine 07/11/2015 11 :53 AM [employer] BLOOD GLUCOSE, POC Routine 07/11/2015 6: 32 AM [employer] BLOOD CELL COUNT (CBC), MORPHOLOGIC EXAM Routine 07/11/2015 4:39 AM [employer] BLOOD CELL MORPHOLOGIC EXAM Routine 07/11/2015 4:39 AM [employer] SERUM RENAL PANEL Routine 07/11/2015 4:3 9 AM [employer] SERUM ESTIMATED GLOMERULAR FILTRATION RATE Routine 07/11/2015 4:39 AM [employer] BLOOD GLUCOSE, POC Routine 07/10/2015 8: 37 PM [employer] BLOOD GLUCOSE, POC Routine 07/10/2015 5: 31 PM [employer] BLOOD GLUCOSE, POC Routine 07/10/2015 11 :28 AM [employer] BLOOD GLUCOSE, POC Routine 07/10/2015 6: 41 AM [employer] BLOOD GLUCOSE, POC Routine 07/09/2015 8: 06 PM [employer] BLOOD GLUCOSE, POC Routine 07/09/2015 5: 38 PM [employer] BLOOD GLUCOSE, POC Routine 07/09/2015 11 :19 AM [employer] BLOOD GLUCOSE, POC Routine 07/09/2015 6: 29 AM [employer] BLOOD GLUCOSE, POC Routine 07/08/2015 8: 13 PM [employer] BLOOD GLUCOSE, POC Routine 07/08/2015 5: 39 PM [employer] BLOOD GLUCOSE, POC Routine 07/08/2015 11 :57 AM [employer] BLOOD GLUCOSE, POC Routine 07/08/2015 6: 18 AM [employer] BLOOD GLUCOSE, POC Routine 07/07/2015 8: 16 PM [employer] BLOOD GLUCOSE, POC Routine 07/07/2015 5: 29 PM [employer] BLOOD GLUCOSE, POC Routine 07/07/2015 1: 57 PM [employer] BLOOD GLUCOSE, POC Routine 07/07/2015 11 :28 AM [employer] BLOOD GLUCOSE, POC Routine 07/07/2015 6: 32 AM [employer] BLOOD GLUCOSE, POC Routine 07/06/2015 8: 24 PM [employer] BLOOD GLUCOSE, POC Routine 07/06/2015 5: 32 PM [employer] BLOOD GLUCOSE, POC Routine 07/06/2015 11 :55 AM [employer] BLOOD GLUCOSE, POC Routine 07/06/2015 6: 35 AM [employer] BLOOD GLUCOSE, POC Routine 07/05/2015 8: 28 PM [employer] BLOOD GLUCOSE, POC Routine 07/05/2015 5: 16 PM [employer] BLOOD GLUCOSE, POC Routine 07/05/2015 5: 15 PM [employer] BLOOD GLUCOSE, POC Routine 07/05/2015 12 :00 PM [employer] BLOOD GLUCOSE, POC Routine 07/05/2015 6: 36 AM [employer] BLOOD GLUCOSE, POC Routine 07/04/2015 10 :46 PM [employer] BLOOD GLUCOSE, POC Routine 07/04/2015 5: 27 PM [employer] BLOOD GLUCOSE, POC Routine 07/04/2015 11 :44 AM [employer] BLOOD GLUCOSE, POC Routine 07/04/2015 6: 42 AM [employer] BLOOD CELL COUNT (CBC), MORPHOLOGIC EXAM Routine 07/04/2015 4:36 AM [employer] BLOOD CELL MORPHOLOGIC EXAM Routine 07/04/2015 4:36 AM [employer] SERUM RENAL PANEL Routine 07/04/2015 4:3 6 AM [employer] SERUM ESTIMATED GLOMERULAR FILTRATION RATE Routine 07/04/2015 4:36 AM [employer] BLOOD GLUCOSE, POC Routine 07/03/2015 9: 32 PM [employer] BLOOD GLUCOSE, POC Routine 07/03/2015 5: 47 PM [employer] BLOOD GLUCOSE, POC Routine 07/03/2015 11 :25 AM [employer] BLOOD GLUCOSE, POC Routine 07/03/2015 6: 30 AM [employer] SERUM RENAL PANEL Routine 07/03/2015 4:0 1 AM [employer] SERUM MAGNESIUM Routine 07/03/2015 4:01 AM [employer] SERUM ESTIMATED GLOMERULAR FILTRATION RATE Routine 07/03/2015 4:01 AM [employer] BLOOD CELL COUNT (CBC), MORPHOLOGIC EXAM Routine 07/03/2015 4:01 AM [employer] BLOOD CELL MORPHOLOGIC EXAM Routine 07/03/2015 4:01 AM [employer] BLOOD GLUCOSE, POC Routine 07/03/2015 2: 05 AM [employer] BLOOD GLUCOSE, POC Routine 07/02/2015 8: 53 PM [employer] BLOOD GLUCOSE, POC Routine 07/02/2015 5: 15 PM [employer] BLOOD GLUCOSE, POC Routine 07/02/2015 5: 13 PM [employer] BLOOD GLUCOSE, POC Routine 07/02/2015 11 :20 AM [employer] BLOOD GLUCOSE, POC Routine 07/02/2015 6: 29 AM [employer] BLOOD GLUCOSE, POC Routine 07/01/2015 9: 00 PM [employer] BLOOD GLUCOSE, POC Routine 07/01/2015 5: 24 PM [employer] BLOOD GLUCOSE, POC Routine 07/01/2015 11 :47 AM [employer] BLOOD GLUCOSE, POC Routine 07/01/2015 6: 45 AM [employer] BLOOD GLUCOSE, POC Routine 06/30/2015 8: 22 PM [employer] documented in this encounter Results * (ABNORMAL) Blood glucose, POC (07/14/2015 6:36 AM [employer]) Glucose, POC, bld 129(H) 71 - 98 mg/dl HISTORICAL RESULTS Blood specimen (specimen) 07/14/2015 6:36 AM [employer] Clayton Helms MD LAB BLOOD ORDERABLES Fin al Result HISTORICAL RESULTS * DISCHARGE LABORATORY CUMULATIVE REPORT (07/14/2015) Narrative 07/14/2015 Ordered by an unspecified provider. Historical Provider LAB BLOOD ORDERABLES Jessica l Result * (ABNORMAL) Blood glucose, POC (07/13/2015 8:20 PM [employer]) Glucose, POC, bld 152(H) 71 - 98 mg/dl HISTORICAL RESULTS Blood specimen (specimen) 07/13/2015 8:20 PM [employer] Clayton Helms MD LAB BLOOD ORDERABLES Fin al Result Performing Organization Address [facility] Phone Number HISTORICAL RESULTS * (ABNORMAL) Blood glucose, POC (07/13/2015 5:19 PM [employer]) Glucose, POC, bld 117(H) 71 - 98 mg/dl HISTORICAL RESULTS Blood specimen (specimen) 07/13/2015 5:19 PM [employer] Clayton Helms MD LAB BLOOD ORDERABLES Fin al Result Performing Organization Address [facility] Phone Number HISTORICAL RESULTS * (ABNORMAL) Blood glucose, POC (07/13/2015 11:22 AM [employer]) Glucose, POC, bld 202(H) 71 - 98 mg/dl HISTORICAL RESULTS Blood specimen (specimen) 07/13/2015 11:22 AM [employer] Clayton Helms MD LAB BLOOD ORDERABLES Fin al Result Performing Organization Address [facility] Phone Number HISTORICAL RESULTS * (ABNORMAL) Blood glucose, POC (07/13/2015 6:30 AM [employer]) Glucose, POC, bld 133(H) 71 - 98 mg/dl HISTORICAL RESULTS Blood specimen (specimen) 07/13/2015 6:30 AM [employer] Clayton Helms MD LAB BLOOD ORDERABLES Fin al Result Performing Organization Address [facility] de Phone Number HISTORICAL RESULTS * (ABNORMAL) Blood glucose, POC (07/12/2015 8:18 PM [employer]) Glucose, POC, bld 289(H) 71 - 98 mg/dl HISTORICAL RESULTS Blood specimen (specimen) 07/12/2015 8:18 PM [employer] Clayton Helms MD LAB BLOOD ORDERABLES Fin al Result Performing Organization Address [facility] de Phone Number HISTORICAL RESULTS * Blood glucose, POC (07/12/2015 5:32 PM [employer]) Glucose, POC, bld 97 71 - 98 mg/dl HISTORICAL RESULTS Blood specimen (specimen) 07/12/2015 5:32 PM [employer] Result [facility] Clayton Helms MD LAB BLOOD ORDERABLES Fin al Result Performing Organization Address [facility] de Phone Number HISTORICAL RESULTS * (ABNORMAL) Blood glucose, POC (07/12/2015 11:22 AM [employer]) Glucose, POC, bld 158(H) 71 - 98 mg/dl HISTORICAL RESULTS Blood specimen (specimen) 07/12/2015 11:22 AM [employer] Result [facility] Clayton Helms MD LAB BLOOD ORDERABLES Fin al Result Performing Organization Address [facility] de Phone Number HISTORICAL RESULTS * (ABNORMAL) Blood glucose, POC (07/12/2015 6:13 AM [employer]) Glucose, POC, bld 133(H) 71 - 98 mg/dl HISTORICAL RESULTS Blood specimen (specimen) 07/12/2015 6:13 AM [employer] Result [facility] Clayton Helms MD LAB BLOOD ORDERABLES Fin al Result Performing Organization Address [facility] de Phone Number HISTORICAL RESULTS * (ABNORMAL) Blood glucose, POC (07/11/2015 9:39 PM [employer]) Glucose, POC, bld 137(H) 71 - 98 mg/dl HISTORICAL RESULTS Blood specimen (specimen) 07/11/2015 9:39 PM [employer] Result [facility] Clayton Helms MD LAB BLOOD ORDERABLES Fin al Result Performing Organization Address [facility] de Phone Number HISTORICAL RESULTS * (ABNORMAL) Blood glucose, POC (07/11/2015 5:25 PM [employer]) Glucose, POC, bld 70(L) 71 - 98 mg/dl HISTORICAL RESULTS Blood specimen (specimen) 07/11/2015 5:25 PM [employer] us Clayton Helms MD LAB BLOOD ORDERABLES Fin al Result HISTORICAL RESULTS * XR Hip 2+ VW (07/11/2015 1:19 PM [employer]) Anatomical Region Laterality Modality N/A Radiographic Pamela ging 07/11/2015 1:19 PM [employer] Narrative 07/11/2015 3:39 PM [employer] XR Hip Min 2 Views L ?? [id number] ??Acc#: ??[id number] DATE OF EXAM: ??Jul 11 2015 CLINICAL HISTORY: Recent hip fracture post-surgical repair. ??Evaluate placement of surgical hardware. RESULT: AP and lateral radiographs of the left hip that includes the femur were obtained and correlated to the post ??operative study from 06/27/15. There is a long intramedullary femoral jeff with a partially threaded screw extending through the proximal aspect of the jeff into the superior head of the femur. ??There is a comminuted left intertrochanteric hip fracture that appears in more varus position today than on the post operative image. ??The partially threaded screw extending to the head of the femur appears to have telescoped approximately 1 cm compared to its position on the intraoperative film from 06/27/15. There is a left knee prosthesis that is anatomically aligned. IMPRESSION: 1. COMMINUTED INTERTROCHANTERIC LEFT FEMUR FRACTURE POST-SURGICAL REPAIR. ??THE PARTIALLY THREADED SCREW EXTENDING INTO THE HEAD OF THE FEMUR APPEARS TO HAVE TELESCOPED APPROXIMATELY 1 CM SINCE THE OPERATIVE STUDY. THE FRACTURE APPEARS IN MORE VARUS POSITION TODAY THAN ON THE PREVIOUS STUDY OBTAINED IMMEDIATELY POSTOP. Interpreting Physician: ??DELMY COOPER M.D. ??Read on: ??Jul 11 2015 ??1:49P Transcribed by: ??lidia ??On: Jul 11 2015 ??2:41P Approved Electronically by: ??DELMY COOPER M.D. ??on: ??Jul 11 2015 ??3:39P Attending: ??CLAYTON HELMS Requesting: ??MANOJ DIAZ Requesting Fax: ??-- Attending Fax: ??-- Attending ID: ??[id number] Requesting ID: ??[id number] Report To 1 ID: ??[id number] Report To 1 Name: ??CLAYTON HELMS Report To 1 FAX: ??-- NextGen Order #: Procedure Note Provider, MD Sofiya - 11/07/2016 XR Hip Min 2 Views L [id number] Acc#: [id number] DATE OF EXAM: Jul 11 2015 CLINICAL HISTORY: Recent hip fracture post-surgical repair. Evaluate placement of surgicalhardware. RESULT: AP and lateral radiographs of the left hip that includes the femur wereobtained and correlated to the post operative study from 06/27/15. Thereis a long intramedullary femoral jeff with a partially threaded screwextending through the proximal aspect of the jeff into the superior head ofthe femur. There is a comminuted left intertrochanteric hip fracture thatappears in more varus position today than on the post operative image.The partially threaded screw extending to the head of the femur appears tohave telescoped approximately 1 cm compared to its position on theintraoperative film from 06/27/15. There is a left knee prosthesis that isanatomically aligned. IMPRESSION: 1. COMMINUTED INTERTROCHANTERIC LEFT FEMUR FRACTURE POST-SURGICAL REPAIR.THE PARTIALLY THREADED SCREW EXTENDING INTO THE HEAD OF THE FEMUR APPEARSTO HAVE TELESCOPED APPROXIMATELY 1 CM SINCE THE OPERATIVE STUDY. THEFRACTURE APPEARS IN MORE VARUS POSITION TODAY THAN ON THE PREVIOUS STUDYOBTAINED IMMEDIATELY POSTOP. Interpreting Physician: DELMY COOPER M.D. Read on: Jul 11 2015 1:49P Transcribed by: lidia On: Jul 11 2015 2:41P Approved Electronically by: DELMY COOPER M.D. on: Jul 11 2015 3:39P Attending: CLAYTON HELMS Requesting: MANOJ DIAZ Requesting Fax: -- Attending Fax: -- Attending ID: [id number] Requesting ID: [id number] Report To 1 ID: [id number] Report To 1 Name: CLAYTON HELMS Report To 1 FAX: -- NextGen Order #: Historical Provider IMG XR PROCEDURES Final R esult * (ABNORMAL) Blood glucose, POC (07/11/2015 11:53 AM [employer]) [facility] Glucose, POC, bld 177(H) 71 - 98 mg/dl HISTORICAL RESULTS Blood specimen (specimen) 07/11/2015 11:53 AM [employer] Clayton Helms MD LAB BLOOD ORDERABLES Fin al Result HISTORICAL RESULTS * (ABNORMAL) Blood glucose, POC (07/11/2015 6:32 AM [employer]) [facility] Glucose, POC, bld 142(H) 71 - 98 mg/dl HISTORICAL RESULTS Blood specimen (specimen) 07/11/2015 6:32 AM [employer] Clayton Helms MD LAB BLOOD ORDERABLES Fin al Result HISTORICAL RESULTS * Blood cell morphologic exam (07/11/2015 4:39 AM [employer]) [facility] Neutrophils 62.0 44.0 - 80.0 % HISTORICAL RESULTS Immature granulocytes 0.5 0.0 - 1.0 % HISTORICAL RESULTS Lymphocytes 23.8 13.0 - 44.0 % HISTORICAL RESULTS Monos 8.2 2.0 - 11.0 % HISTORICAL RESULTS Eosinophils 4.6 0.0 - 6.0 % HISTORICAL RESULTS Basophils 0.9 0.0 - 3.0 % HISTORICAL RESULTS Neutrophils, abs 5.3 1.6 - 7.0 K/cumm HISTORICAL RESULTS Immature granulocyte, abs 0.04 0.00 - 0.20 K/cumm HISTORICAL RESULTS Lymphocytes, abs 2.0 0.5 - 4.3 K/cumm HISTORICAL RESULTS Monocytes, absolute 0.7 0.1 - 1.0 K/cumm HISTORICAL RESULTS Eosinophils, abs 0.4 0.0 - 0.6 K/cumm HISTORICAL RESULTS Basophils, abs 0.1 0.0 - 0.3 K/cumm HISTORICAL RESULTS Blood specimen (specimen) 07/11/2015 4:39 AM [employer] Clayton Helms MD LAB BLOOD ORDERABLES Fin al Result Performing Organization Address [facility] de Phone Number HISTORICAL RESULTS * (ABNORMAL) Blood cell count (CBC), morphologic exam (07/11/2015 4:39 AM [employer]) WBC 8.5 3.8 - 9.8 K/cumm HISTORICAL RESULTS RBC 3.22(L) 3.90 - 5.00 M/cumm HISTORICAL RESULTS Hgb 8.3(L) 12.1 - 15.1 g/dl HISTORICAL RESULTS Hct 27.6(L) 36.1 - 44.3 % HISTORICAL RESULTS MCV 85.7 80.0 - 100.0 fl HISTORICAL RESULTS MCH 25.8(L) 26.7 - 33.7 pg HISTORICAL RESULTS MCHC 30.1(L) 32.7 - 36.0 g/dl HISTORICAL RESULTS Rdw 16.3(H) 11.5 - 14.6 % HISTORICAL RESULTS Platelets 255 140 - 440 K/cumm HISTORICAL RESULTS MPV 9.5 8.0 - 12.0 fl HISTORICAL RESULTS NRBC 0.0 0.0 - 0.0 % HISTORIC AL RESULTS NRBC, abs 0.00 0.00 - 0.00 K/cumm HISTORICAL RESULTS Blood specimen (specimen) 07/11/2015 4:39 AM [employer] Clayton Helms MD LAB BLOOD ORDERABLES Fin al Result Performing Organization Address [facility] de Phone Number HISTORICAL RESULTS * (ABNORMAL) Serum renal panel (07/11/2015 4:39 AM [employer]) Sodium 141 135 - 145 mmol/L HISTORICAL RESULTS K, pl 4.0 3.5 - 5.1 mmol/L HISTORICAL RESULTS Chloride 103 97 - 110 mmol/L HISTORICAL RESULTS CO2 27 22 - 32 mmol/L HISTORICAL RESULTS A. gap 15 8 - 16 mmol/L HISTORICAL RESULTS Glucose 137 70 - 199 mg/dl HISTORICAL RESULTS Comment: [...] data was last revised on 2014. BUN 12.1 8.0 - 25.0 mg/dl HISTORICAL RESULTS Creatinine 0.81 0.60 - 1.10 mg/dl HISTORICAL RESULTS BUN/creat ratio 15 10 - 20 HIST ORICAL RESULTS Calcium 9.0 8.6 - 10.2 mg/dl HISTORICAL RESULTS Phosphorus, pl 4.5 2.5 - 4.5 mg/dl HISTORICAL RESULTS Alb 3.1(L) 3.6 - 5.0 g/dl HISTORICAL RESULTS Serum 07/11/2015 4:39 AM [employer] Clayton Helms MD LAB BLOOD ORDERABLES Fin al Result HISTORICAL RESULTS * Serum estimated glomerular filtration rate (07/11/2015 4:39 AM [employer]) eGFR >60 ml/min/1.7 3 m2 HISTORICAL RESULTS Comment: Interpretation of Estimated GFR (eGFR): Normal ?>/= 60 mL/min/1.73m2 Possible Chronic Kidney Disease ??15 - 59 mL/min/1.73m2 Possible Kidney Failure ?< 15 ??mL/min/1.73m2 If -Danish multiply value by 1.16. ??Estimated glomerular filtration rate is determined by the CKD-EPI equation recommended by the National Kidney Foundation (KDIGO 2012 Clinical Practice Guideline for the Evaluation and Management of Chronic Kidney Disease. ??Kidney Intnl Suppl Jul 2012;3:1). ??The CKD-EPI equation should not be used in acute renal failure or acute kidney injury and is not valid in children. Serum 07/11/2015 4:39 AM [employer] Clayton Helms MD LAB BLOOD ORDERABLES Fin al Result Performing Organization Address [facility] de Phone Number HISTORICAL RESULTS * (ABNORMAL) Blood glucose, POC (07/10/2015 8:37 PM [employer]) Glucose, POC, bld 179(H) 71 - 98 mg/dl HISTORICAL RESULTS Blood specimen (specimen) 07/10/2015 8:37 PM [employer] Result [facility] Clayton Helms MD LAB BLOOD ORDERABLES Fin al Result Performing Organization Address [facility] de Phone Number HISTORICAL RESULTS * (ABNORMAL) Blood glucose, POC (07/10/2015 5:31 PM [employer]) Glucose, POC, bld 166(H) 71 - 98 mg/dl HISTORICAL RESULTS Blood specimen (specimen) 07/10/2015 5:31 PM [employer] Result [facility] Clayton Helms MD LAB BLOOD ORDERABLES Fin al Result Performing Organization Address [facility] de Phone Number HISTORICAL RESULTS * (ABNORMAL) Blood glucose, POC (07/10/2015 11:28 AM [employer]) Glucose, POC, bld 133(H) 71 - 98 mg/dl HISTORICAL RESULTS Blood specimen (specimen) 07/10/2015 11:28 AM [employer] Result [facility] Clayton Helms MD LAB BLOOD ORDERABLES Fin al Result Performing Organization Address [facility] de Phone Number HISTORICAL RESULTS * (ABNORMAL) Blood glucose, POC (07/10/2015 6:41 AM [employer]) Glucose, POC, bld 196(H) 71 - 98 mg/dl HISTORICAL RESULTS Blood specimen (specimen) 07/10/2015 6:41 AM [employer] Result [facility] Clayton Helms MD LAB BLOOD ORDERABLES Fin al Result Performing Organization Address [facility] de Phone Number HISTORICAL RESULTS * (ABNORMAL) Blood glucose, POC (07/09/2015 8:06 PM [employer]) Glucose, POC, bld 241(H) 71 - 98 mg/dl HISTORICAL RESULTS Blood specimen (specimen) 07/09/2015 8:06 PM [employer] Clayton Helms MD LAB BLOOD ORDERABLES Fin al Result Performing Organization Address [facility] de Phone Number HISTORICAL RESULTS * (ABNORMAL) Blood glucose, POC (07/09/2015 5:38 PM [employer]) Glucose, POC, bld 135(H) 71 - 98 mg/dl HISTORICAL RESULTS Blood specimen (specimen) 07/09/2015 5:38 PM [employer] Clayton Helms MD LAB BLOOD ORDERABLES Fin al Result Performing Organization Address [facility] de Phone Number HISTORICAL RESULTS * (ABNORMAL) Blood glucose, POC (07/09/2015 11:19 AM [employer]) Glucose, POC, bld 198(H) 71 - 98 mg/dl HISTORICAL RESULTS Blood specimen (specimen) 07/09/2015 11:19 AM [employer] Result [facility] us Clayton Helms MD LAB BLOOD ORDERABLES Fin al Result Performing Organization Address [facility] de Phone Number HISTORICAL RESULTS * (ABNORMAL) Blood glucose, POC (07/09/2015 6:29 AM [employer]) Glucose, POC, bld 212(H) 71 - 98 mg/dl HISTORICAL RESULTS Blood specimen (specimen) 07/09/2015 6:29 AM [employer] us Clayton Helms MD LAB BLOOD ORDERABLES Fin al Result Performing Organization Address [facility] de Phone Number HISTORICAL RESULTS * (ABNORMAL) Blood glucose, POC (07/08/2015 8:13 PM [employer]) Glucose, POC, bld 233(H) 71 - 98 mg/dl HISTORICAL RESULTS Blood specimen (specimen) 07/08/2015 8:13 PM [employer] Result [facility] us Clayton Helms MD LAB BLOOD ORDERABLES Fin al Result Performing Organization Address [facility] Phone Number HISTORICAL RESULTS * (ABNORMAL) Blood glucose, POC (07/08/2015 5:39 PM [employer]) Glucose, POC, bld 168(H) 71 - 98 mg/dl HISTORICAL RESULTS Blood specimen (specimen) 07/08/2015 5:39 PM [employer] us Clayton Helms MD LAB BLOOD ORDERABLES Fin al Result Performing Organization Address [facility] Phone Number HISTORICAL RESULTS * (ABNORMAL) Blood glucose, POC (07/08/2015 11:57 AM [employer]) Glucose, POC, bld 148(H) 71 - 98 mg/dl HISTORICAL RESULTS Blood specimen (specimen) 07/08/2015 11:57 AM [employer] us Clayton Helms MD LAB BLOOD ORDERABLES Fin al Result Performing Organization Address [facility] Phone Number HISTORICAL RESULTS * (ABNORMAL) Blood glucose, POC (07/08/2015 6:18 AM [employer]) Glucose, POC, bld 187(H) 71 - 98 mg/dl HISTORICAL RESULTS Blood specimen (specimen) 07/08/2015 6:18 AM [employer] us Clayton Helms MD LAB BLOOD ORDERABLES Fin al Result Performing Organization Address [facility] de Phone Number HISTORICAL RESULTS * (ABNORMAL) Blood glucose, POC (07/07/2015 8:16 PM [employer]) Glucose, POC, bld 101(H) 71 - 98 mg/dl HISTORICAL RESULTS Blood specimen (specimen) 07/07/2015 8:16 PM [employer] Clayton Helms MD LAB BLOOD ORDERABLES Fin al Result Performing Organization Address [facility] de Phone Number HISTORICAL RESULTS * (ABNORMAL) Blood glucose, POC (07/07/2015 5:29 PM [employer]) Glucose, POC, bld 218(H) 71 - 98 mg/dl HISTORICAL RESULTS Blood specimen (specimen) 07/07/2015 5:29 PM [employer] Clayton Helms MD LAB BLOOD ORDERABLES Fin al Result Performing Organization Address [facility] Phone Number HISTORICAL RESULTS * (ABNORMAL) Blood glucose, POC (07/07/2015 1:57 PM [employer]) Glucose, POC, bld 212(H) 71 - 98 mg/dl HISTORICAL RESULTS Blood specimen (specimen) 07/07/2015 1:57 PM [employer] Clayton Helms MD LAB BLOOD ORDERABLES Fin al Result Performing Organization Address [facility] Phone Number HISTORICAL RESULTS * (ABNORMAL) Blood glucose, POC (07/07/2015 11:28 AM [employer]) Glucose, POC, bld 118(H) 71 - 98 mg/dl HISTORICAL RESULTS Blood specimen (specimen) 07/07/2015 11:28 AM [employer] Clayton Helms MD LAB BLOOD ORDERABLES Fin al Result Performing Organization Address [facility] de Phone Number HISTORICAL RESULTS * (ABNORMAL) Blood glucose, POC (07/07/2015 6:32 AM [employer]) Glucose, POC, bld 103(H) 71 - 98 mg/dl HISTORICAL RESULTS Blood specimen (specimen) 07/07/2015 6:32 AM [employer] Clayton Helms MD LAB BLOOD ORDERABLES Fin al Result Performing Organization Address [facility] de Phone Number HISTORICAL RESULTS * (ABNORMAL) Blood glucose, POC (07/06/2015 8:24 PM [employer]) Glucose, POC, bld 115(H) 71 - 98 mg/dl HISTORICAL RESULTS Blood specimen (specimen) 07/06/2015 8:24 PM [employer] Clayton Helms MD LAB BLOOD ORDERABLES Fin al Result Performing Organization Address [facility] de Phone Number HISTORICAL RESULTS * (ABNORMAL) Blood glucose, POC (07/06/2015 5:32 PM [employer]) Glucose, POC, bld 112(H) 71 - 98 mg/dl HISTORICAL RESULTS Blood specimen (specimen) 07/06/2015 5:32 PM [employer] Result [facility] Clayton Helms MD LAB BLOOD ORDERABLES Fin al Result Performing Organization Address [facility] de Phone Number HISTORICAL RESULTS * (ABNORMAL) Blood glucose, POC (07/06/2015 11:55 AM [employer]) Glucose, POC, bld 129(H) 71 - 98 mg/dl HISTORICAL RESULTS Blood specimen (specimen) 07/06/2015 11:55 AM [employer] Result [facility] Clayton Helms MD LAB BLOOD ORDERABLES Fin al Result Performing Organization Address [facility] de Phone Number HISTORICAL RESULTS * (ABNORMAL) Blood glucose, POC (07/06/2015 6:35 AM [employer]) Glucose, POC, bld 126(H) 71 - 98 mg/dl HISTORICAL RESULTS Blood specimen (specimen) 07/06/2015 6:35 AM [employer] Result [facility] Clayton Helms MD LAB BLOOD ORDERABLES Fin al Result HISTORICAL RESULTS * (ABNORMAL) Blood glucose, POC (07/05/2015 8:28 PM [employer]) Glucose, POC, bld 235(H) 71 - 98 mg/dl HISTORICAL RESULTS Comment:Glu2: RN/MD Notified Blood specimen (specimen) 07/05/2015 8:28 PM [employer] Clayton Helms MD LAB BLOOD ORDERABLES Fin al Result Performing Organization Address [facility] de Phone Number HISTORICAL RESULTS * (ABNORMAL) Blood glucose, POC (07/05/2015 5:16 PM [employer]) Glucose, POC, bld 62(L) 71 - 98 mg/dl HISTORICAL RESULTS Blood specimen (specimen) 07/05/2015 5:16 PM [employer] Clayton Helms MD LAB BLOOD ORDERABLES Fin al Result Performing Organization Address [facility] de Phone Number HISTORICAL RESULTS * (ABNORMAL) Blood glucose, POC (07/05/2015 5:15 PM [employer]) Glucose, POC, bld 65(L) 71 - 98 mg/dl HISTORICAL RESULTS Blood specimen (specimen) 07/05/2015 5:15 PM [employer] Clayton Helms MD LAB BLOOD ORDERABLES Fin al Result Performing Organization Address [facility] de Phone Number HISTORICAL RESULTS * (ABNORMAL) Blood glucose, POC (07/05/2015 12:00 PM [employer]) Glucose, POC, bld 204(H) 71 - 98 mg/dl HISTORICAL RESULTS Blood specimen (specimen) 07/05/2015 12:00 PM [employer] Clayton Helms MD LAB BLOOD ORDERABLES Fin al Result Performing Organization Address [facility] de Phone Number HISTORICAL RESULTS * (ABNORMAL) Blood glucose, POC (07/05/2015 6:36 AM [employer]) Glucose, POC, bld 135(H) 71 - 98 mg/dl HISTORICAL RESULTS Blood specimen (specimen) 07/05/2015 6:36 AM [employer] us Clayton Helms MD LAB BLOOD ORDERABLES Fin al Result Performing Organization Address [facility] Phone Number HISTORICAL RESULTS * Blood glucose, POC (07/04/2015 10:46 PM [employer]) Glucose, POC, bld 81 71 - 98 mg/dl HISTORICAL RESULTS Blood specimen (specimen) 07/04/2015 10:46 PM [employer] Result [facility] us Clayton Helms MD LAB BLOOD ORDERABLES Fin al Result Performing Organization Address [facility] Phone Number HISTORICAL RESULTS * (ABNORMAL) Blood glucose, POC (07/04/2015 5:27 PM [employer]) Glucose, POC, bld 128(H) 71 - 98 mg/dl HISTORICAL RESULTS Blood specimen (specimen) 07/04/2015 5:27 PM [employer] us Clayton Helms MD LAB BLOOD ORDERABLES Fin al Result Performing Organization Address [facility] Phone Number HISTORICAL RESULTS * (ABNORMAL) Blood glucose, POC (07/04/2015 11:44 AM [employer]) Glucose, POC, bld 70(L) 71 - 98 mg/dl HISTORICAL RESULTS Blood specimen (specimen) 07/04/2015 11:44 AM [employer] us Clayton Helms MD LAB BLOOD ORDERABLES Fin al Result Performing Organization Address [facility] de Phone Number HISTORICAL RESULTS * (ABNORMAL) Blood glucose, POC (07/04/2015 6:42 AM [employer]) Glucose, POC, bld 111(H) 71 - 98 mg/dl HISTORICAL RESULTS Blood specimen (specimen) 07/04/2015 6:42 AM [employer] Clayton Helms MD LAB BLOOD ORDERABLES Simba johnston Result Performing Organization Address [facility] de Phone Number HISTORICAL RESULTS * Blood cell morphologic exam (07/04/2015 4:36 AM [employer]) Neutrophils 64.5 44.0 - 80.0 % HISTORICAL RESULTS Immature granulocytes 0.6 0.0 - 1.0 % HISTORICAL RESULTS Lymphocytes 21.6 13.0 - 44.0 % HISTORICAL RESULTS Monos 8.3 2.0 - 11.0 % HISTORICAL RESULTS Eosinophils 4.3 0.0 - 6.0 % HISTORICAL RESULTS Basophils 0.7 0.0 - 3.0 % HISTORICAL RESULTS Neutrophils, abs 6.1 1.6 - 7.0 K/cumm HISTORICAL RESULTS Immature granulocyte, abs 0.06 0.00 - 0.20 K/cumm HISTORICAL RESULTS Lymphocytes, abs 2.0 0.5 - 4.3 K/cumm HISTORICAL RESULTS Monocytes, absolute 0.8 0.1 - 1.0 K/cumm HISTORICAL RESULTS Eosinophils, abs 0.4 0.0 - 0.6 K/cumm HISTORICAL RESULTS Basophils, abs 0.1 0.0 - 0.3 K/cumm HISTORICAL RESULTS Blood specimen (specimen) 07/04/2015 4:36 AM [employer] Clayton Helms MD LAB BLOOD ORDERABLES Simba johnston Result Performing Organization Address [facility] de Phone Number HISTORICAL RESULTS * (ABNORMAL) Blood cell count (CBC), morphologic exam (07/04/2015 4:36 AM [employer]) WBC 9.4 3.8 - 9.8 K/cumm HISTORICAL RESULTS RBC 3.02(L) 3.90 - 5.00 M/cumm HISTORICAL RESULTS Hgb 7.8(L) 12.1 - 15.1 g/dl HISTORICAL RESULTS Hct 25.7(L) 36.1 - 44.3 % HISTORICAL RESULTS MCV 85.1 80.0 - 100.0 fl HISTORICAL RESULTS MCH 25.8(L) 26.7 - 33.7 pg HISTORICAL RESULTS MCHC 30.4(L) 32.7 - 36.0 g/dl HISTORICAL RESULTS Rdw 16.1(H) 11.5 - 14.6 % HISTORICAL RESULTS Platelets 211 140 - 440 K/cumm HISTORICAL RESULTS MPV 9.9 8.0 - 12.0 fl HISTORICAL RESULTS NRBC 0.0 0.0 - 0.0 % HISTORIC AL RESULTS NRBC, abs 0.00 0.00 - 0.00 K/cumm HISTORICAL RESULTS Blood specimen (specimen) 07/04/2015 4:36 AM [employer] us Clayton Helms MD LAB BLOOD ORDERABLES Fin al Result HISTORICAL RESULTS * (ABNORMAL) Serum renal panel (07/04/2015 4:36 AM [employer]) Sodium 142 135 - 145 mmol/L HISTORICAL RESULTS K, pl 4.2 3.5 - 5.1 mmol/L HISTORICAL RESULTS Chloride 104 97 - 110 mmol/L HISTORICAL RESULTS CO2 25 22 - 32 mmol/L HISTORICAL RESULTS A. gap 17(H) 8 - 16 mmol/L HISTORICAL RESULTS Glucose 110 70 - 199 mg/dl HISTORICAL RESULTS Comment: [...] data was last revised on 2014. BUN 15.6 8.0 - 25.0 mg/dl HISTORICAL RESULTS Creatinine 1.00 0.60 - 1.10 mg/dl HISTORICAL RESULTS BUN/creat ratio 16 10 - 20 HIST ORICAL RESULTS Calcium 8.9 8.6 - 10.2 mg/dl HISTORICAL RESULTS Phosphorus, pl 4.3 2.5 - 4.5 mg/dl HISTORICAL RESULTS Alb 3.1(L) 3.6 - 5.0 g/dl HISTORICAL RESULTS Serum 07/04/2015 4:36 AM [employer] Clayton Helms MD LAB BLOOD ORDERABLES Fin al Result Performing Organization Address [facility] de Phone Number HISTORICAL RESULTS * Serum estimated glomerular filtration rate (07/04/2015 4:36 AM [employer]) eGFR 59 ml/min/1.7 3 m2 HISTORICAL RESULTS Comment: Interpretation of Estimated GFR (eGFR): Normal ?>/= 60 mL/min/1.73m2 Possible Chronic Kidney Disease ??15 - 59 mL/min/1.73m2 Possible Kidney Failure ?< 15 ??mL/min/1.73m2 If -Danish multiply value by 1.16. ??Estimated glomerular filtration rate is determined by the CKD-EPI equation recommended by the National Kidney Foundation (KDIGO 2012 Clinical Practice Guideline for the Evaluation and Management of Chronic Kidney Disease. ??Kidney Intnl Suppl Jul 2012;3:1). ??The CKD-EPI equation should not be used in acute renal failure or acute kidney injury and is not valid in children. Serum 07/04/2015 4:36 AM [employer] Result [facility] Clayton Helms MD LAB BLOOD ORDERABLES Fin al Result Performing Organization Address [facility] de Phone Number HISTORICAL RESULTS * (ABNORMAL) Blood glucose, POC (07/03/2015 9:32 PM [employer]) Glucose, POC, bld 141(H) 71 - 98 mg/dl HISTORICAL RESULTS Blood specimen (specimen) 07/03/2015 9:32 PM [employer] Clayton Helms MD LAB BLOOD ORDERABLES Fin al Result Performing Organization Address [facility] de Phone Number HISTORICAL RESULTS * (ABNORMAL) Blood glucose, POC (07/03/2015 5:47 PM [employer]) Glucose, POC, bld 124(H) 71 - 98 mg/dl HISTORICAL RESULTS Blood specimen (specimen) 07/03/2015 5:47 PM [employer] Clayton Helms MD LAB BLOOD ORDERABLES Fin al Result Performing Organization Address [facility] de Phone Number HISTORICAL RESULTS * Blood glucose, POC (07/03/2015 11:25 AM [employer]) Glucose, POC, bld 89 71 - 98 mg/dl HISTORICAL RESULTS Blood specimen (specimen) 07/03/2015 11:25 AM [employer] Clayton Helms MD LAB BLOOD ORDERABLES Fin al Result Performing Organization Address [facility] de Phone Number HISTORICAL RESULTS * Blood glucose, POC (07/03/2015 6:30 AM [employer]) Glucose, POC, bld 98 71 - 98 mg/dl HISTORICAL RESULTS Blood specimen (specimen) 07/03/2015 6:30 AM [employer] Clayton Helms MD LAB BLOOD ORDERABLES Fin al Result Performing Organization Address [facility] de Phone Number HISTORICAL RESULTS * (ABNORMAL) Serum renal panel (07/03/2015 4:01 AM [employer]) Sodium 141 135 - 145 mmol/L HISTORICAL RESULTS K, pl 3.9 3.5 - 5.1 mmol/L HISTORICAL RESULTS Chloride 104 97 - 110 mmol/L HISTORICAL RESULTS CO2 26 22 - 32 mmol/L HISTORICAL RESULTS A. gap 15 8 - 16 mmol/L HISTORICAL RESULTS Glucose 93 70 - 199 mg/dl HISTORICAL RESULTS Comment: [...] data was last revised on 2014. BUN 15.5 8.0 - 25.0 mg/dl HISTORICAL RESULTS Creatinine 0.91 0.60 - 1.10 mg/dl HISTORICAL RESULTS BUN/creat ratio 17 10 - 20 HIST ORICAL RESULTS Calcium 8.8 8.6 - 10.2 mg/dl HISTORICAL RESULTS Phosphorus, pl 3.8 2.5 - 4.5 mg/dl HISTORICAL RESULTS Alb 3.2(L) 3.6 - 5.0 g/dl HISTORICAL RESULTS Serum 07/03/2015 4:01 AM [employer] Clayton Helms MD LAB BLOOD ORDERABLES Fin al Result Performing Organization Address [facility] de Phone Number HISTORICAL RESULTS * Serum magnesium (07/03/2015 4:01 AM [employer]) Magnesium 2.1 1.6 - 2.4 mg/dl HISTORICAL RESULTS Serum 07/03/2015 4:01 AM [employer] Clayton Helms MD LAB BLOOD ORDERABLES Fin al Result Performing Organization Address [facility] de Phone Number HISTORICAL RESULTS * Serum estimated glomerular filtration rate (07/03/2015 4:01 AM [employer]) eGFR >60 ml/min/1.7 3 m2 HISTORICAL RESULTS Comment: Interpretation of Estimated GFR (eGFR): Normal ?>/= 60 mL/min/1.73m2 Possible Chronic Kidney Disease ??15 - 59 mL/min/1.73m2 Possible Kidney Failure ?< 15 ??mL/min/1.73m2 If -Danish multiply value by 1.16. ??Estimated glomerular filtration rate is determined by the CKD-EPI equation recommended by the National Kidney Foundation (KDIGO 2012 Clinical Practice Guideline for the Evaluation and Management of Chronic Kidney Disease. ??Kidney Intnl Suppl Jul 2012;3:1). ??The CKD-EPI equation should not be used in acute renal failure or acute kidney injury and is not valid in children. Serum 07/03/2015 4:01 AM [employer] Clayton Helms MD LAB BLOOD ORDERABLES Fin al Result Performing Organization Address [facility] de Phone Number HISTORICAL RESULTS * Blood cell morphologic exam (07/03/2015 4:01 AM [employer]) Neutrophils 64.4 44.0 - 80.0 % HISTORICAL RESULTS Immature granulocytes 0.6 0.0 - 1.0 % HISTORICAL RESULTS Lymphocytes 22.3 13.0 - 44.0 % HISTORICAL RESULTS Monos 8.7 2.0 - 11.0 % HISTORICAL RESULTS Eosinophils 3.5 0.0 - 6.0 % HISTORICAL RESULTS Basophils 0.5 0.0 - 3.0 % HISTORICAL RESULTS Neutrophils, abs 6.6 1.6 - 7.0 K/cumm HISTORICAL RESULTS Immature granulocyte, abs 0.06 0.00 - 0.20 K/cumm HISTORICAL RESULTS Lymphocytes, abs 2.3 0.5 - 4.3 K/cumm HISTORICAL RESULTS Monocytes, absolute 0.9 0.1 - 1.0 K/cumm HISTORICAL RESULTS Eosinophils, abs 0.4 0.0 - 0.6 K/cumm HISTORICAL RESULTS Basophils, abs 0.0 0.0 - 0.3 K/cumm HISTORICAL RESULTS Blood specimen (specimen) 07/03/2015 4:01 AM [employer] Clayton Helms MD LAB BLOOD ORDERABLES Fin al Result Performing Organization Address [facility] de Phone Number HISTORICAL RESULTS * (ABNORMAL) Blood cell count (CBC), morphologic exam (07/03/2015 4:01 AM [employer]) WBC 10.2(H) 3.8 - 9.8 K/cumm HISTORICAL RESULTS RBC 3.00(L) 3.90 - 5.00 M/cumm HISTORICAL RESULTS Hgb 7.8(L) 12.1 - 15.1 g/dl HISTORICAL RESULTS Hct 25.2(L) 36.1 - 44.3 % HISTORICAL RESULTS MCV 84.0 80.0 - 100.0 fl HISTORICAL RESULTS MCH 26.0(L) 26.7 - 33.7 pg HISTORICAL RESULTS MCHC 31.0(L) 32.7 - 36.0 g/dl HISTORICAL RESULTS Rdw 16.0(H) 11.5 - 14.6 % HISTORICAL RESULTS Platelets 222 140 - 440 K/cumm HISTORICAL RESULTS MPV 9.9 8.0 - 12.0 fl HISTORICAL RESULTS NRBC 0.0 0.0 - 0.0 % HISTORIC AL RESULTS NRBC, abs 0.00 0.00 - 0.00 K/cumm HISTORICAL RESULTS Blood specimen (specimen) 07/03/2015 4:01 AM [employer] Clayton Helms MD LAB BLOOD ORDERABLES Fin al Result Performing Organization Address [facility] de Phone Number HISTORICAL RESULTS * (ABNORMAL) Blood glucose, POC (07/03/2015 2:05 AM [employer]) Glucose, POC, bld 109(H) 71 - 98 mg/dl HISTORICAL RESULTS Blood specimen (specimen) 07/03/2015 2:05 AM [employer] Clayton Helms MD LAB BLOOD ORDERABLES Fin al Result Performing Organization Address [facility] de Phone Number HISTORICAL RESULTS * (ABNORMAL) Blood glucose, POC (07/02/2015 8:53 PM [employer]) Glucose, POC, bld 132(H) 71 - 98 mg/dl HISTORICAL RESULTS Blood specimen (specimen) 07/02/2015 8:53 PM [employer] Result [facility] Clayton Helms MD LAB BLOOD ORDERABLES Fin al Result Performing Organization Address [facility] de Phone Number HISTORICAL RESULTS * (ABNORMAL) Blood glucose, POC (07/02/2015 5:15 PM [employer]) Glucose, POC, bld 65(L) 71 - 98 mg/dl HISTORICAL RESULTS Blood specimen (specimen) 07/02/2015 5:15 PM [employer] Clayton Helms MD LAB BLOOD ORDERABLES Fin al Result Performing Organization Address [facility] de Phone Number HISTORICAL RESULTS * (ABNORMAL) Blood glucose, POC (07/02/2015 5:13 PM [employer]) Glucose, POC, bld 66(L) 71 - 98 mg/dl HISTORICAL RESULTS Blood specimen (specimen) 07/02/2015 5:13 PM [employer] Clayton Helms MD LAB BLOOD ORDERABLES Fin al Result Performing Organization Address [facility] de Phone Number HISTORICAL RESULTS * (ABNORMAL) Blood glucose, POC (07/02/2015 11:20 AM [employer]) Glucose, POC, bld 186(H) 71 - 98 mg/dl HISTORICAL RESULTS Blood specimen (specimen) 07/02/2015 11:20 AM [employer] Clayotn Helms MD LAB BLOOD ORDERABLES Fin al Result Performing Organization Address [facility] de Phone Number HISTORICAL RESULTS * (ABNORMAL) Blood glucose, POC (07/02/2015 6:29 AM [employer]) Glucose, POC, bld 161(H) 71 - 98 mg/dl HISTORICAL RESULTS Blood specimen (specimen) 07/02/2015 6:29 AM [employer] Clayton Helms MD LAB BLOOD ORDERABLES Fin al Result Performing Organization Address [facility] de Phone Number HISTORICAL RESULTS * (ABNORMAL) Blood glucose, POC (07/01/2015 9:00 PM [employer]) Glucose, POC, bld 134(H) 71 - 98 mg/dl HISTORICAL RESULTS Blood specimen (specimen) 07/01/2015 9:00 PM [employer] Clayton Helms MD LAB BLOOD ORDERABLES Fin al Result Performing Organization Address [facility] de Phone Number HISTORICAL RESULTS * Blood glucose, POC (07/01/2015 5:24 PM [employer]) Glucose, POC, bld 80 71 - 98 mg/dl HISTORICAL RESULTS Blood specimen (specimen) 07/01/2015 5:24 PM [employer] Result [facility] Clayton Helms MD LAB BLOOD ORDERABLES Fin al Result Performing Organization Address [facility] de Phone Number HISTORICAL RESULTS * (ABNORMAL) Blood glucose, POC (07/01/2015 11:47 AM HOT PLATE PLYWOOD PRESS LABORER) Glucose, POC, bld 153(H) 71 - 98 mg/dl HISTORICAL RESULTS Blood specimen (specimen) 07/01/2015 11:47 AM H[employer]ATE [employer] PRESS LABORER Result [facility] Clayton Helms MD LAB BLOOD ORDERABLES Fin al Result Performing Organization Address [facility] de Phone Number HISTORICAL RESULTS * (ABNORMAL) Blood glucose, POC (07/01/2015 6:45 AM HOT [employer]ATE [employer] PRESS LABORER) Glucose, POC, bld 159(H) 71 - 98 mg/dl HISTORICAL RESULTS Blood specimen (specimen) 07/01/2015 6:45 AM H[employer]ATE [employer] PRESS LABORER Result [facility] Clayton Helms MD LAB BLOOD ORDERABLES Fin al Result Performing Organization Address [facility] de Phone Number HISTORICAL RESULTS * (ABNORMAL) Blood glucose, POC (06/30/2015 8:22 PM H[employer]ATE [employer] PR[employer] LABORER) Glucose, POC, bld 109(H) 71 - 98 mg/dl HISTORICAL RESULTS Blood specimen (specimen) 06/30/2015 8:22 PM H[employer]ATE [employer] PR[employer] LABORER Result [facility] us Clayton Helms MD LAB BLOOD ORDERABLES Fin al Result Performing Organization Address [facility] de Phone Number HISTORICAL RESULTS documented in this encounter Visit Diagnoses Diagnosis Other fracture of head and neck of left femur, subsequent encounter for closed fracture with routine healing Body mass index (BMI) of 40.0-44.9 in adult (HCC) Morbid (severe) obesity due to excess calories (HCC) Polyneuropathy Unspecified hereditary and idiopathic peripheral neuropathy Sarcoidosis Essential (primary) hypertension Unspecified essential hypertension Type 2 diabetes mellitus without complications (CMS/HCC) (HCC) Presence of right artificial knee joint documented in this encounter Care Teams Hydrochloric Area Supervisor Relationship Specialty Start Date End Date Clayton Helms MD [address] [place] [address] PCP - General 09/30/12 09/26/16 documented as of this encounter
--- OUTSIDE RECORDS SUMMARY | 2024-07-11 22:42 | XMS_ITS | Encounter Summary ---
Author Organization [facility] Healthcare Address [address] [place] [address] Care Team Providers Care Lamps Tester And Inspector Name Role Phone Clayton Sandoval MD Primary Care Provider + Encounter Details Date Type Department Care Team (Late st Contact Info) Description 01/08/2016 4:31 PM CDT - 01/08/2016 11:59 PM CDT Hospital Encounter [facility] Clayton Wyman MD [address] [place] [address] Augustine Roberts PA [address] [place] [address] [place] [address] Anemia Social History Tobacco Use Types Packs/Day Years Used Date Smoking Tobacco: Never Alcohol Use Standard Drinks/Week Comments Yes 0 (1 standard drink = 0.6 oz pur e alcohol) Comments Unknown Sex and Gender Information Value Date Recorded Sex Assigned at Not on file 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 Gender Identity Not on file Sexual Orientation [...] as needed 60 2 06/21/2013 2 zoledronic pwnl-pxpycpto-p ater (RECLAST) 5 mg/100 mL piggyback tud 1 Syringe 0 08/14/2015 0 zoledronic jaxb-igayvqfz-l ater (RECLAST) 5 mg/100 mL piggyback tud 1 Syringe 0 08/14/2015 7 documented as of this encounter Plan of Treatment Not on file documented as of this encounter Visit Diagnoses Diagnosis Anemia Unspecified anemia documented in this encounter Care Teams Lamps Tester And Inspector Relationship Specialty Start Date End Date Clayton Sandoval MD [address] [facility] [place] [address] PCP - General 09/30/12 09/26/16 documented as of this encounter
--- OUTSIDE RECORDS SUMMARY | 2024-07-11 22:42 | XMS_ITS | Encounter Summary ---
Author Organization [facility] Healthcare Address [address] [place] [address] Care Team Providers Care Practical Ministries Professor Name Role Phone Clayton Helms MD Primary Care Provider + Encounter Details Date Type Department Care Team (Late st Contact Info) Description 04/15/2015 12:11 PM CDT - 04/15/2015 11:59 PM CDT Hospital Encounter [facility] Clayton Wyman MD [address] [facility] [address] [place] [address] Encounter for screening mammogram for malignant neoplasm of breast Social History Tobacco Use Types Packs/Day Years Used Date Smoking Tobacco: Never Alcohol Use Standard Drinks/Week Comments Yes 0 (1 standard drink = 0.6 oz pur e alcohol) Comments Unknown Sex and Gender Information Value Date Recorded Sex Assigned at Not on file 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 RESULT: Four view screening mammogram is compared to a prior exam dated 09/29/13. There has been no interval change. The patient is status post bilateral reduction mammoplasty. ??The breasts remained heterogeneously dense. ??Post surgical architectural distortion is dystrophic calcifications are seen which are stable compared to the prior study. ??There are no new masses or suspicious ??microcalcifications. IMPRESSION: 1. BENIGN FINDINGS. 2. RECOMMEND ROUTINE FOLLOWUP. Interpreting Physician: ??DR ALLEN DENNY M.D. ??Read on: ??Oct ??2014 8:01A Transcribed by: ??mb ?? On: Oct ??5 2014 ??2:51P Approved Electronically by: ??EDUIN Ang, DR VILLA ??on: ??Oct ??2014 3:10P Attending: ??CLAYTON HELMS Requesting: ??DR CLAYTON HELMS Requesting Fax: ??-- Attending Fax: ??-- Attending ID: ??[id number] Requesting ID: ??[id number] Report To 1 ID: ??[id number] Report To 1 Name: ??CLAYTON HELMS Report To 1 FAX: ??-- NextGen Order #: Procedure Note Provider, MD Sofiya - 11/07/2016 Performed by: Screening Mamm Bi Acc#: [id number] DATE OF EXAM: Apr 15 2015 CLINICAL HISTORY: Routine screening, no current complaints. RESULT: Four view screening mammogram is compared to a prior exam dated 09/29/13.There has been no interval change. The patient is status post bilateralreduction mammoplasty. The breasts remained heterogeneously dense. Postsurgical architectural distortion is dystrophic calcifications are seenwhich are stable compared to the prior study. There are no new masses orsuspicious microcalcifications. IMPRESSION: 1. BENIGN FINDINGS. 2. RECOMMEND ROUTINE FOLLOWUP. Interpreting Physician: DR ALLEN DENNY M.D. Read on: Apr 17 20158:01A Transcribed by: [email or web address] On: Apr 17 2015 2:51P Approved Electronically by: EDUIN Ang, DR VILLA on: Apr 17 20153:10P Attending: CLAYTON HELMS Requesting: DR CLAYTON HELMS Requesting Fax: -- Attending Fax: -- Attending ID: [id number] Requesting ID: [id number] Report To 1 ID: [id number] Report To 1 Name: CLAYTON HELMS Report To 1 FAX: -- NextGen Order #: Historical Provider MD [facility] MAMMO PROCEDURES Jessica l Result documented in this encounter Visit Diagnoses Diagnosis Encounter for screening mammogram for malignant neoplasm of breast documented in this encounter Care Teams Practical Ministries Professor Relationship Specialty Start Date End Date Clayton Helms MD [address] [facility] [place] [address] PCP - General 09/30/12 09/26/16 documented as of this encounter
--- OUTSIDE RECORDS SUMMARY | 2024-07-11 22:42 | XMS_ITS | Encounter Summary ---
Author Organization [facility] Healthcare Address [address] [place] [address] Care Team Providers Care Shell Molding Roller Blast Operator Name Role Phone Clayton Sandoval MD Primary Care Provider + Encounter Details Date Type Department Care Team (Late st Contact Info) Description 06/28/2016 10:19 AM HEAD OF HOUSEKEEPING - 06/28/2016 11:59 PM HEAD OF HOUSEKEEPING Hospital Encounter [facility] OP INTERIM Clayton Sandoval MD [address] [facility] [address] Discharge Disposition: Discharge to home or self care Social History Tobacco Use Types Packs/Day Years Used Date Smoking Tobacco: Never Alcohol Use Standard Drinks/Week Comments Yes 0 (1 standard drink = 0.6 oz pur e alcohol) Comments Unknown Sex and Gender Information Value Date Recorded Sex Assigned at Not on file Legal Sex Female 11:52 PM HEAD OF HOUSEKEEPING Gender Identity Not on file Sexual Orientation [...] as needed 60 2 06/21/2013 2 zoledronic nrcp-nrofznyr-x ater (RECLAST) 5 mg/100 mL piggyback tud 1 Syringe 0 08/14/2015 0 zoledronic pjhb-rtzgbxyf-a ater (RECLAST) 5 mg/100 mL piggyback tud 1 Syringe 0 08/14/2015 7 documented as of this encounter Discharge Disposition Disposition Code Departure Means Destination Discharge to home or self care documented in this encounter Plan of Treatment Not on file documented as of this encounter Visit Diagnoses Not on filedocumented in this encounter Care Teams Shell Molding Roller Blast Operator Relationship Specialty Start Date End Date Clayton Sandoval MD [address] [facility] [place] [address] PCP - General 09/30/12 09/26/16 documented as of this encounter
--- OUTSIDE RECORDS SUMMARY | 2024-07-11 22:42 | XMS_ITS | Encounter Summary ---
Author Organization [facility] Healthcare Address [address] [place] [address] Care Team Providers Care Change Management Specialist Name Role Phone Clayton Sandoval MD Primary Care Provider + Encounter Details Date Type Department Care Team (Late st Contact Info) Description 01/16/2016 1:51 PM CDT - 01/16/2016 11:59 PM CDT Hospital Encounter [facility] Clayton Wyman MD [address] [place] [place] [address] Anemia Social History Tobacco Use Types Packs/Day Years Used Date Smoking Tobacco: Never Alcohol Use Standard Drinks/Week Comments Yes 0 (1 standard drink = 0.6 oz pur e alcohol) Comments Unknown Sex and Gender Information Value Date Recorded Sex Assigned at Not on file 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 Sex 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 Gender Identity Not on file Sexual Orientation [...] as needed 60 2 06/21/2013 2 zoledronic clei-tfwynfib-g ater (RECLAST) 5 mg/100 mL piggyback tud 1 Syringe 0 08/14/2015 0 zoledronic hrif-vqkvmiek-q ater (RECLAST) 5 mg/100 mL piggyback tud 1 Syringe 0 08/14/2015 7 documented as of this encounter Plan of Treatment Not on file documented as of this encounter Procedures Procedure Name Priority Date/Time Associated Diagnosis Comments CLINICAL PATHOLOGY REPORT 01/16/2016 CLINICAL PATHOLOGY REPORT 01/16/2016 documented in this encounter Results * Clinical pathology report (01/16/2016) Narrative 01/16/2016 Ordered by an unspecified provider. Historical Provider MD LAB PATHOLOGY ORDERABLES Final Result * Clinical pathology report (01/16/2016) Narrative 01/16/2016 Ordered by an unspecified provider. Historical Provider MD LAB PATHOLOGY ORDERABLES Final Result documented in this encounter Visit Diagnoses Diagnosis Anemia Unspecified anemia documented in this encounter Care Teams Change Management Specialist Relationship Specialty Start Date End Date Clayton Sandoval MD [address] [place] [address] PCP - General 09/30/12 09/26/16 documented as of this encounter
--- OUTSIDE RECORDS SUMMARY | 2024-07-11 22:42 | XMS_ITS | Encounter Summary ---
Author Organization [facility] Healthcare Address [address] [place] [address] Care Team Providers Care Freezer Laboratory Technician Name Role Phone Clayton Sandoval MD Primary Care Provider + Encounter Details Date Type Department Care Team (Late st Contact Info) Description 06/26/2015 8:46 AM SAFEKEEPING CLERK - 06/26/2015 11:59 PM [facility] Hospital Encounter [facility] CLINCONV Pain in right hip; Fall on same level from slipping, tripping and stumbling without subsequent striking against object, initial encounter; Activity, other specified; Other place in single-family (private) house as the place of occurrence of the external cause Social History Tobacco Use Types Packs/Day Years Used Date Smoking Tobacco: Never Alcohol Use Standard Drinks/Week Comments Yes 0 (1 standard drink = 0.6 oz pur e alcohol) Comments Unknown Sex and Gender Information Value Date Recorded Sex Assigned at Not on file Legal Sex Female 11:52 PM SAFEKEEPING CLERK Gender Identity Not on file Sexual Orientation Not on file documented as of this encounter Medications at Time of Discharge blood-glucose meter (CONTOUR NEXT USB METER) mis [...] PEN NEEDLE UF MINI) 31 gauge x 316 needle USE ONE NEEDLE DIRECTED EIGHT TIMES [...] this encounter Visit Diagnoses Diagnosis Pain in right hip Fall on same level from slipping, tripping and stumbling without subsequent striking against object, initial encounter Activity, other specified Other place in single-family (private) house as the place of occurrence of the external cause documented in this encounter Care Teams Freezer Laboratory Technician Relationship Specialty Start Date End Date Clayton Sandoval MD [address] [place] [address] PCP - General 09/30/12 09/26/16 documented as of this encounter
--- OUTSIDE RECORDS SUMMARY | 2024-07-11 22:42 | XMS_ITS | Encounter Summary ---
Author Organization [facility] Healthcare Address [address] [place] [address] Care Team Providers Care Manager Of Enterprise Name Role Phone Gilbert Helms MD Primary Care Provider + Encounter Details Date Type Department Care Team (Late st Contact Info) Description 06/26/2015 2:00 PM DOOR FRAME ASSEMBLER MACHINE - 06/30/2015 4:00 PM DOOR FRAME ASSEMBLER MACHINE Hospital Encounter [facility] Gilbert Wyman MD [address] [place] [address] Closed displaced intertrochanteric fracture of left femur (CMS/HCC); Metabolic syndrome; Polyneuropathy (CMS/HCC); Morbid (severe) obesity due to excess calories (HCC); Sarcoidosis (CMS/HCC); Type 2 diabetes mellitus without complications (CMS/HCC); Essential (primary) hypertension; Hyperlipidemia; History of colonic polyps; Fall (on) (from) other stairs and steps, initial encounter; Private driveway to single-family private house as place of occurrence of external cause; Presence of both artificial knee joints Social History Tobacco Use Types Packs/Day Years Used Date Smoking Tobacco: Never Alcohol Use Standard Drinks/Week Comments Yes 0 (1 standard drink = 0.6 oz pur e alcohol) Comments Unknown Sex and Gender Information Value Date Recorded Sex Assigned at Not on file Legal Sex Female 11:52 PM DOOR FRAME ASSEMBLER MACHINE Gender Identity Not on file Sexual Orientation Not on file documented as of this encounter Last Filed Vital Signs Vital Sign Reading Time Taken Comments Blood Pressure 131/54 06/30/2015 7:40 AM DOOR FRAME ASSEMBLER MACHINE Pulse 87 06/30/2015 8:19 AM DOOR FRAME ASSEMBLER MACHINE Temperature - - Respiratory Rate - - Oxygen Saturation - - Inhaled Oxygen Concentration - - Weight 115.8 kg (255 lb 4.7 oz) 06/27/2015 9:51 AM DOOR FRAME ASSEMBLER MACHINE Height 167.6 cm (5' 5.98 ) 06/27/2015 9:51 AM CS T Body Mass Index 41.23 06/27/2015 9:51 AM DOOR FRAME ASSEMBLER MACHINE documented in this encounter Discharge Summaries * Provider, MD Sofiya - 06/30/2015 12:00 AM CST DISCHARGE SUMMARY Patient: CRISS RENTERIA Account: [id number] Room No: G611-01 : 1950 Patient Type: IP Attend.: Gilbert Helms M.D. Admit Date: 06/26/2015 Dict.: Gilbert Helms M.D. Disch. Date: 06/30/2015 Final Diagnoses: 1. Acute left hip fracture. 2. Type 2 diabetes mellitus. 3. Peripheral neuropathy. 4. Hypertension. 5. Dyslipidemia. 6. Dysmetabolic syndrome. 7. Morbid obesity. 8. Sarcoidosis. 9. Colonic polyposis. Discharge Medications: Please refer to the discharge medication reconciliation list. Disposition: The patient is transferred to the [facility] for subacute care for physical therapy, occupational therapy, anticipating that she will discharge home. Service Coordinator: Dr. Diaz Primary Procedure: Open reduction internal fixation of the hip fracture. Clinical Resume: The patient had fallen at home sustaining a hip fracture. She was seen in consultation by Dr. Diaz. She was taken to the operating room where the fracture was repaired. Her diabetes remained reasonably controlled. She had no other medical complications. She had a bit of pain postoperatively but was progressing with therapy and subsequently will be transferred to transitional care for further treatment. Electronically Authenticated by: Gilbert Helms MD On 07/02/2015 10:15 PM DOOR FRAME ASSEMBLER MACHINE Gilbert Helms M.D. CG/at TD: 07/02/2015 20:34 documented in this encounter Medications at Time [...] 06/21/2013 2 documented as of this encounter H&P Notes * Provider, MD Sofiya - 06/26/2015 12:00 AM CST HISTORY AND PHYSICAL Patient: CRISS RENTERIA Account: [id number] Room No: G611-01 : 1950 Patient Type: IP Attend.: Gilbert Helms M.D. Admit Date: 06/26/2015 Dict.: Gilbert Helms M.D. Disch. Date: DATE OF ADMISSION: 06/26/2015. ATTENDING PHYSICIAN: Dr. Gilbert Helms. CONSULTING PHYSICIAN: Dr. Jon Diaz. This is a 65-year-old white female who fell through the doorway from the house down into the driveway landing on her left hip on cement subsequently sustaining left hip fracture with x-rays showing an acute mildly comminuted mildly displaced intertrochanteric fracture. She has been admitted to the hospital and accepted by Dr. Diaz for surgery tomorrow. PAST MEDICAL HISTORY: Notable for coronary pulposus, sarcoidosis, hypertension, peripheral neuropathy, dyslipidemia, morbid obesity, type 2 diabetes mellitus. She is status post cervical discectomy, microdecompression, lumbar laminectomy, left total knee arthroplasty, right total knee arthroplasty, tonsillectomy. She states she tolerated all the aforementioned surgery as well without any anesthetic, bleeding, clotting or infectious complications. CURRENT HOME MEDICATIONS: Calcium, Flonase, gabapentin, glimepiride, Humalog, AC irbesartan, HCT, Levemir, ___ 55 b.i.d., metformin, pantoprazole, simvastatin, Singulair, tramadol, glimepiride. ALLERGIES: Intolerance to medications claimed to hydrocodone. SOCIAL HISTORY: Never smoked, , no children, rare alcohol use. FAMILY HISTORY: Lymphoma, diabetes, heart disease, heart failure, hypertension. SYSTEM REVIEW: Up until the fall, she states things have been going well. She has had no recent cold, cough, sputum, chest pain, dyspnea or wheeze. She has had no orthopnea, PND or edema. She has had no nausea, vomiting or abdominal pain. She has had no unusual bleeding or bruising. She has had no history of any bleeding or clotting disorders. She has had no jaundice, no change in the color of her urine or stool. She has no problems with bowel or bladder habits. No bleeding. No other complaints were offered. PHYSICAL EXAMINATION: Reveals an overweight white female who looks her stated age. She appears alert, oriented, currently no acute distress except with movement. Temp 93, pulse 86, regular, respirations 18, blood pressure 152/67. Head: Atraumatic; normocephalic. Pupils equal, round and reactive to light and accommodation. Sclera clear. Conjunctiva: [place]. Throat: Clear. Mouth: Moist. Neck: Supple. Carotid upstrokes without bruits. Neck veins are flat. Chest: Clear to auscultation. Heart: S1 and S2 are normal, no click, murmur or gallop. Abdomen: Obese, soft, nontender, no masses or hepatosplenomegaly. CV: Negative. Extremities: Without clubbing or cyanosis. Trace pedal edema. Nontender peripheral pulses are 2+ and symmetric. Neuro: Alert and oriented. There is no focal abnormalities. She does not move the left leg due to pain. There is tenderness over the left lateral hip. Babinskis are downgoing. Strength is intact. Sensation is slightly diminished in the stocking-like distribution. IMPRESSION: 65-year-old white female with an acute left hip fracture. Underlying medical problems include type 2 diabetes mellitus, peripheral neuropathy, hypertension, dyslipidemia, dysmetabolic syndrome, morbid obesity, sarcoidosis, colonic polyposis. Prior surgeries as listed. RECOMMENDATIONS: Were to orthopedic consultation which has been obtained from Dr. Diaz. Continue insulin management of her diabetes. The patient appears to be as good of shape as she can be for the procedure plan and it was recommended therefore that she is an appropriate candidate for surgery. Electronically Authenticated by: Gilbert Helms MD On 06/27/2015 07:52 PM DOOR FRAME ASSEMBLER MACHINE Gilbert Helms M.D. CG/lacy TD: 06/26/2015 18:09 documented in this encounter Consult Notes * Provider, MD Sofiya - 06/26/2015 12:00 AM CST CONSULTATION REPORT Patient: CRISS RENTERIA Account: [id number] Room No: G611-01 : 1950 Patient Type: IP Attend.: Gilbert Helms M.D. Admit Date: 06/26/2015 Consult: Manoj Diaz M.D. Disch. Date: 06/30/2015 DATE OF CONSULTATION: 06/26/2015 Thank you for asking me to see this patient, a 65-year-old female patient admitted following an incident at home in which the patient sustained a left intertrochanteric fracture of the proximal femur. The patient was brought to the emergency room where x-rays were obtained and the fracture identified. She is otherwise medically stable presently. Operative intervention by surgical stabilization of the fracture site in order to restore normal anatomy and internally fix the fracture to allow mobilization is indicated. PHYSICAL EXAMINATION: Confirms a healthy 65-year-old in no distress. Vital signs are stable. Positive findings at this time from an orthopedic perspective are to the left lower extremity where there is shortening and external rotation. Neurovascular status is preserved. Range of motion has not been tested. INVESTIGATIONS: X-rays confirm an intertrochanteric fracture of the left femur immediately adjacent to the greater trochanter with extension laterally into the subtrochanteric area. SUMMARY: This 65-year-old with an acute left proximal femoral fracture has indication for open reduction and internal fixation by gamma nail insertion. The risks, benefits, complications, prognosis for recovery, as well as realistic expectations were discussed with the patient, who is in agreement with the proposed plan. Surgical intervention will be arranged for tomorrow on 06/27/2015. Thank you for asking me to participate in this patient's care. Electronically Authenticated by: Manoj Diaz MD On 07/05/2015 04:54 PM DOOR FRAME ASSEMBLER MACHINE Sav Rosario/avni TD: 07/02/2015 22:27 documented in this encounter Miscellaneous Notes * Op Note - Provider, MD Sofiya - 06/27/2015 12:00 AM CST OPERATIVE REPORT Patient: CRISS RENTERIA Account: [id number] Room No: G611-01 : 1950 Patient Type: IP Attend.: Gilbert Helms M.D. Admit Date: 06/26/2015 Surg.: Manoj Diaz M.D. Disch. Date: 06/30/2015 DATE OF OPERATION: 06/27/2015 OPERATIVE INDICATIONS: The patient is a 65-year-old female with an intertrochanteric fracture of the proximal femur with indication for open reduction and internal fixation using a gamma nail system. The risks, benefits, complications, prognosis for recovery, as well as realistic expectations were discussed with the patient, who is in agreement with the proposed plan. OPERATIVE PROCEDURE: Following administration of general anesthesia in the supine position, the patient was transferred to the fracture table and the left lower extremity was placed in general traction. The opposite extremity was externally rotated and abducted to facilitate biplanar fluoroscopy. Following adequate positioning, the usual prep and drape was undertaken. Via a longitudinal 5 cm incision above the greater trochanter, skin and soft tissues were divided and the proximal aspect of the greater trochanter exposed. Under fluoroscopic control an awl was utilized to create an access point at the tip of the greater trochanter and guidewire inserted via the proximal femur and down into the femoral canal. The guidepin was then measured and it was determined that an appropriate length intramedullary jeff would end well proximal to the patient's distal femur. Once reaming proximally accomplished, the IM jeff was placed and once at appropriate position at 125 degree angle, a guidepin was placed and then the proximal femoral lag screw was placed via the femoral neck into the femoral head. Once this was well positioned centrally, it was locked down with an interference screw. Anatomical position and rigid internal fixation were achieved. Following completion of the procedure and removal of guidepins and insertion devices, closure was undertaken with inverted simple sutures of 2-0 Vicryl in subcutaneous tissues followed by staple skin closure. Dressings were applied. There were no intraoperative complications. The patient tolerated the procedure well and was returned to the recovery room in satisfactory condition. PREOPERATIVE DIAGNOSIS: Intertrochanteric fracture left proximal femur. POSTOPERATIVE DIAGNOSIS: Intertrochanteric fracture left proximal femur. PROCEDURE: Left proximal femoral internal fixation (gamma nail). LCAC OPERATOR: Angelica Perez R.N. Electronically Authenticated by: Manoj Diaz MD On 07/05/2015 04:54 PM DOOR FRAME ASSEMBLER MACHINE Sav Rosario/avni TD: 07/02/2015 22:36 documented in this encounter Plan of Treatment Not on file documented as of this encounter Procedures Procedure Name Priority Date/Time Associated Diagnosis Comments BLOOD GLUCOSE, POC Routine 06/30/2015 5: 17 PM DOOR FRAME ASSEMBLER MACHINE BLOOD GLUCOSE, POC Routine 06/30/2015 11 :26 AM DOOR FRAME ASSEMBLER MACHINE BLOOD GLUCOSE, POC Routine 06/30/2015 7: 45 AM DOOR FRAME ASSEMBLER MACHINE BLOOD GLUCOSE, POC Routine 06/30/2015 2: 10 AM DOOR FRAME ASSEMBLER MACHINE DISCHARGE LABORATORY CUMULATIVE REPORT 06/30/2015 BLOOD GLUCOSE, POC Routine 06/29/2015 9: 13 PM DOOR FRAME ASSEMBLER MACHINE BLOOD GLUCOSE, POC Routine 06/29/2015 4: 19 PM DOOR FRAME ASSEMBLER MACHINE BLOOD GLUCOSE, POC Routine 06/29/2015 11 :27 AM DOOR FRAME ASSEMBLER MACHINE BLOOD GLUCOSE, POC Routine 06/29/2015 7: 31 AM DOOR FRAME ASSEMBLER MACHINE BLOOD CELL COUNT (CBC), MORPHOLOGIC EXAM Routine 06/29/2015 4:41 AM DOOR FRAME ASSEMBLER MACHINE BLOOD CELL MORPHOLOGIC EXAM Routine 06/29/2015 4:41 AM DOOR FRAME ASSEMBLER MACHINE BLOOD GLUCOSE, POC Routine 06/28/2015 9: 45 PM DOOR FRAME ASSEMBLER MACHINE BLOOD GLUCOSE, POC Routine 06/28/2015 4: 22 PM DOOR FRAME ASSEMBLER MACHINE BLOOD GLUCOSE, POC Routine 06/28/2015 11 :25 AM DOOR FRAME ASSEMBLER MACHINE BLOOD GLUCOSE, POC Routine 06/28/2015 7: 28 AM DOOR FRAME ASSEMBLER MACHINE BLOOD CELL COUNT (CBC), MORPHOLOGIC EXAM Routine 06/28/2015 4:49 AM DOOR FRAME ASSEMBLER MACHINE BLOOD CELL MORPHOLOGIC EXAM Routine 06/28/2015 4:49 AM DOOR FRAME ASSEMBLER MACHINE BLOOD GLUCOSE, POC Routine 06/28/2015 2: 14 AM DOOR FRAME ASSEMBLER MACHINE BLOOD GLUCOSE, POC Routine 06/27/2015 9: 23 PM DOOR FRAME ASSEMBLER MACHINE BLOOD GAS, ARTERIAL Routine 06/27/2015 8 :08 PM DOOR FRAME ASSEMBLER MACHINE BLOOD GLUCOSE, POC Routine 06/27/2015 4: 31 PM DOOR FRAME ASSEMBLER MACHINE BLOOD HEMOGLOBIN Routine 06/27/2015 10:5 0 AM DOOR FRAME ASSEMBLER MACHINE BLOOD HEMATOCRIT Routine 06/27/2015 10:5 0 AM DOOR FRAME ASSEMBLER MACHINE BLOOD GLUCOSE, POC Routine 06/27/2015 10 :49 AM DOOR FRAME ASSEMBLER MACHINE XR HIP INTRAOPERATIVE Routine 06/27/2015 10:28 AM DOOR FRAME ASSEMBLER MACHINE BLOOD GLUCOSE, POC Routine 06/27/2015 7: 15 AM DOOR FRAME ASSEMBLER MACHINE SERUM ESTIMATED GLOMERULAR FILTRATION RATE Routine 06/27/2015 3:55 AM DOOR FRAME ASSEMBLER MACHINE PLASMA BASIC METABOLIC PANEL Routine 06/27/2015 3:55 AM DOOR FRAME ASSEMBLER MACHINE BLOOD CELL COUNT (CBC), MORPHOLOGIC EXAM Routine 06/27/2015 3:55 AM DOOR FRAME ASSEMBLER MACHINE BLOOD CELL MORPHOLOGIC EXAM Routine 06/27/2015 3:55 AM DOOR FRAME ASSEMBLER MACHINE BLOOD GLUCOSE, POC Routine 06/27/2015 2: 09 AM DOOR FRAME ASSEMBLER MACHINE BLOOD GLUCOSE, POC Routine 06/26/2015 9: 34 PM DOOR FRAME ASSEMBLER MACHINE BLOOD GLUCOSE, POC Routine 06/26/2015 4: 17 PM DOOR FRAME ASSEMBLER MACHINE SERUM ESTIMATED GLOMERULAR FILTRATION RATE Routine 06/26/2015 11:35 AM DOOR FRAME ASSEMBLER MACHINE PLASMA COMPREHENSIVE METABOLIC PANEL Routine 06/26/2015 11:35 AM DOOR FRAME ASSEMBLER MACHINE BLOOD PROTHROMBIN TIME (PT) Routine 06/26/2015 11:35 AM DOOR FRAME ASSEMBLER MACHINE BLOOD PARTIAL THROMBOPLASTIN TIME (PTT) Routine 06/26/2015 11:35 AM DOOR FRAME ASSEMBLER MACHINE BLOOD INDIRECT ANTIGLOBULIN TEST Routine 06/26/2015 11:35 AM DOOR FRAME ASSEMBLER MACHINE BLOOD CELL COUNT (CBC), MORPHOLOGIC EXAM Routine 06/26/2015 11:35 AM DOOR FRAME ASSEMBLER MACHINE BLOOD ABO, RH Routine 06/26/2015 11:35 AM DOOR FRAME ASSEMBLER MACHINE BLOOD CELL MORPHOLOGIC EXAM Routine 06/26/2015 11:35 AM DOOR FRAME ASSEMBLER MACHINE XR HIP 2+ VW Routine 06/26/2015 9:52 AM DOOR FRAME ASSEMBLER MACHINE XR PELVIS 1 OR 2 VIEWS Routine 5 9:52 AM DOOR FRAME ASSEMBLER MACHINE XR CHEST 1 VIEW Routine 06/26/2015 9:52 AM DOOR FRAME ASSEMBLER MACHINE ELECTROCARDIOGRAPHY (ECG) 06/26/2015 documented in this encounter Results * Blood glucose, POC (06/30/2015 5:17 PM DOOR FRAME ASSEMBLER MACHINE) Glucose, POC, bld 81 71 - 98 mg/dl HISTORICAL RESULTS Blood specimen (specimen) 06/30/2015 5:17 PM DOOR FRAME ASSEMBLER MACHINE Gilbert Helms MD LAB BLOOD ORDERABLES Fin al Result Performing Organization Address [facility] Co de Phone Number HISTORICAL RESULTS * (ABNORMAL) Blood glucose, POC (06/30/2015 11:26 AM DOOR FRAME ASSEMBLER MACHINE) Glucose, POC, bld 202(H) 71 - 98 mg/dl HISTORICAL RESULTS Comment:Glu2: RN/ Notified Blood specimen (specimen) 06/30/2015 11:26 AM DOOR FRAME ASSEMBLER MACHINE Gilbert Helms MD LAB BLOOD ORDERABLES Fin al Result Performing Organization Address [facility] Co de Phone Number HISTORICAL RESULTS * (ABNORMAL) Blood glucose, POC (06/30/2015 7:45 AM DOOR FRAME ASSEMBLER MACHINE) Glucose, POC, bld 164(H) 71 - 98 mg/dl HISTORICAL RESULTS Blood specimen (specimen) 06/30/2015 7:45 AM DOOR FRAME ASSEMBLER MACHINE Result [facility] Gilbert Helms MD LAB BLOOD ORDERABLES Fin al Result Performing Organization Address [facility] de Phone Number HISTORICAL RESULTS * (ABNORMAL) Blood glucose, POC (06/30/2015 2:10 AM DOOR FRAME ASSEMBLER MACHINE) Glucose, POC, bld 152(H) 71 - 98 mg/dl HISTORICAL RESULTS Blood specimen (specimen) 06/30/2015 2:10 AM DOOR FRAME ASSEMBLER MACHINE Result [facility] Gilbert Helms MD LAB BLOOD ORDERABLES Fin al Result Performing Organization Address [facility] de Phone Number HISTORICAL RESULTS * DISCHARGE LABORATORY CUMULATIVE REPORT (06/30/2015) Narrative 06/30/2015 Ordered by an unspecified provider. Result [facility] LAB BLOOD ORDERABLES Jessica l Result * (ABNORMAL) Blood glucose, POC (06/29/2015 9:13 PM DOOR FRAME ASSEMBLER MACHINE) Glucose, POC, bld 138(H) 71 - 98 mg/dl HISTORICAL RESULTS Blood specimen (specimen) 06/29/2015 9:13 PM DOOR FRAME ASSEMBLER MACHINE Result [facility] Gilbert Helms MD LAB BLOOD ORDERABLES Fin al Result Performing Organization Address [facility] de Phone Number HISTORICAL RESULTS * Blood glucose, POC (06/29/2015 4:19 PM DOOR FRAME ASSEMBLER MACHINE) Glucose, POC, bld 88 71 - 98 mg/dl HISTORICAL RESULTS Blood specimen (specimen) 06/29/2015 4:19 PM DOOR FRAME ASSEMBLER MACHINE Result [facility] Gilbert Helms MD LAB BLOOD ORDERABLES Fin al Result Performing Organization Address [facility] de Phone Number HISTORICAL RESULTS * (ABNORMAL) Blood glucose, POC (06/29/2015 11:27 AM DOOR FRAME ASSEMBLER MACHINE) Glucose, POC, bld 131(H) 71 - 98 mg/dl HISTORICAL RESULTS Blood specimen (specimen) 06/29/2015 11:27 AM DOOR FRAME ASSEMBLER MACHINE Gilbert Helms MD LAB BLOOD ORDERABLES Fin al Result Performing Organization Address [facility] de Phone Number HISTORICAL RESULTS * (ABNORMAL) Blood glucose, POC (06/29/2015 7:31 AM DOOR FRAME ASSEMBLER MACHINE) Glucose, POC, bld 183(H) 71 - 98 mg/dl HISTORICAL RESULTS Blood specimen (specimen) 06/29/2015 7:31 AM DOOR FRAME ASSEMBLER MACHINE Gilbert Helms MD LAB BLOOD ORDERABLES Fin al Result Performing Organization Address [facility] de Phone Number HISTORICAL RESULTS * (ABNORMAL) Blood cell morphologic exam (06/29/2015 4:41 AM DOOR FRAME ASSEMBLER MACHINE) Neutrophils 75.2 44.0 - 80.0 % HISTORICAL RESULTS Immature granulocytes 0.7 0.0 - 1.0 % HISTORICAL RESULTS Lymphocytes 14.0 13.0 - 44.0 % HISTORICAL RESULTS Monos 8.5 2.0 - 11.0 % HISTORICAL RESULTS Eosinophils 1.0 0.0 - 6.0 % HISTORICAL RESULTS Basophils 0.6 0.0 - 3.0 % HISTORICAL RESULTS Neutrophils, abs 8.7(H) 1.6 - 7.0 K/cumm HISTORICAL RESULTS Immature granulocyte, abs 0.08 0.00 - 0.20 K/cumm HISTORICAL RESULTS Lymphocytes, abs 1.6 0.5 - 4.3 K/cumm HISTORICAL RESULTS Monocytes, absolute 1.0 0.1 - 1.0 K/cumm HISTORICAL RESULTS Eosinophils, abs 0.1 0.0 - 0.6 K/cumm HISTORICAL RESULTS Basophils, abs 0.1 0.0 - 0.3 K/cumm HISTORICAL RESULTS Blood specimen (specimen) 06/29/2015 4:41 AM DOOR FRAME ASSEMBLER MACHINE Gilbert Helms MD LAB BLOOD ORDERABLES Fin al Result Performing Organization Address [place]/[facility] Co de Phone Number HISTORICAL RESULTS * (ABNORMAL) Blood cell count (CBC), morphologic exam (06/29/2015 4:41 AM DOOR FRAME ASSEMBLER MACHINE) WBC 11.8(H) 3.8 - 9.8 K/cumm HISTORICAL RESULTS RBC 3.23(L) 3.90 - 5.00 M/cumm HISTORICAL RESULTS Hgb 8.4(L) 12.1 - 15.1 g/dl HISTORICAL RESULTS Hct 27.0(L) 36.1 - 44.3 % HISTORICAL RESULTS MCV 83.6 80.0 - 100.0 fl HISTORICAL RESULTS MCH 26.0(L) 26.7 - 33.7 pg HISTORICAL RESULTS MCHC 31.1(L) 32.7 - 36.0 g/dl HISTORICAL RESULTS Rdw 15.0(H) 11.5 - 14.6 % HISTORICAL RESULTS Platelets 184 140 - 440 K/cumm HISTORICAL RESULTS MPV 9.4 8.0 - 12.0 fl HISTORICAL RESULTS NRBC 0.0 0.0 - 0.0 % HISTORIC AL RESULTS NRBC, abs 0.00 0.00 - 0.00 K/cumm HISTORICAL RESULTS Blood specimen (specimen) 06/29/2015 4:41 AM DOOR FRAME ASSEMBLER MACHINE Gilbert Helms MD LAB BLOOD ORDERABLES Fin al Result Performing Organization Address [facility] de Phone Number HISTORICAL RESULTS * (ABNORMAL) Blood glucose, POC (06/28/2015 9:45 PM DOOR FRAME ASSEMBLER MACHINE) Glucose, POC, bld 145(H) 71 - 98 mg/dl HISTORICAL RESULTS Blood specimen (specimen) 06/28/2015 9:45 PM DOOR FRAME ASSEMBLER MACHINE Result [facility] Gilbert Helms MD LAB BLOOD ORDERABLES Fin al Result Performing Organization Address [place]/[facility]/ZIP Co de Phone Number HISTORICAL RESULTS * (ABNORMAL) Blood glucose, POC (06/28/2015 4:22 PM DOOR FRAME ASSEMBLER MACHINE) Glucose, POC, bld 123(H) 71 - 98 mg/dl HISTORICAL RESULTS Blood specimen (specimen) 06/28/2015 4:22 PM DOOR FRAME ASSEMBLER MACHINE Result [facility] Gilbert Helms MD LAB BLOOD ORDERABLES Fin al Result Performing Organization Address [facility] de Phone Number HISTORICAL RESULTS * (ABNORMAL) Blood glucose, POC (06/28/2015 11:25 AM DOOR FRAME ASSEMBLER MACHINE) Glucose, POC, bld 198(H) 71 - 98 mg/dl HISTORICAL RESULTS Blood specimen (specimen) 06/28/2015 11:25 AM DOOR FRAME ASSEMBLER MACHINE Result [facility] Gilbert Helms MD LAB BLOOD ORDERABLES Fin al Result Performing Organization Address [facility] de Phone Number HISTORICAL RESULTS * (ABNORMAL) Blood glucose, POC (06/28/2015 7:28 AM DOOR FRAME ASSEMBLER MACHINE) Glucose, POC, bld 143(H) 71 - 98 mg/dl HISTORICAL RESULTS Blood specimen (specimen) 06/28/2015 7:28 AM DOOR FRAME ASSEMBLER MACHINE Gilbert Helms MD LAB BLOOD ORDERABLES Fin al Result Performing Organization Address [facility] de Phone Number HISTORICAL RESULTS * (ABNORMAL) Blood cell morphologic exam (06/28/2015 4:49 AM DOOR FRAME ASSEMBLER MACHINE) Neutrophils 72.5 44.0 - 80.0 % HISTORICAL RESULTS Immature granulocytes 0.4 0.0 - 1.0 % HISTORICAL RESULTS Lymphocytes 13.9 13.0 - 44.0 % HISTORICAL RESULTS Monos 11.0 2.0 - 11.0 % HISTORICAL RESULTS Eosinophils 1.7 0.0 - 6.0 % HISTORICAL RESULTS Basophils 0.5 0.0 - 3.0 % HISTORICAL RESULTS Neutrophils, abs 7.4(H) 1.6 - 7.0 K/cumm HISTORICAL RESULTS Immature granulocyte, abs 0.04 0.00 - 0.20 K/cumm HISTORICAL RESULTS Lymphocytes, abs 1.4 0.5 - 4.3 K/cumm HISTORICAL RESULTS Monocytes, absolute 1.1(H) 0.1 - 1.0 K/cumm HISTORICAL RESULTS Eosinophils, abs 0.2 0.0 - 0.6 K/cumm HISTORICAL RESULTS Basophils, abs 0.0 0.0 - 0.3 K/cumm HISTORICAL RESULTS Blood specimen (specimen) 06/28/2015 4:49 AM DOOR FRAME ASSEMBLER MACHINE us Historical Provider LAB BLOOD ORDERABLES Jessica reynolds Result HISTORICAL RESULTS * (ABNORMAL) Blood cell count (CBC), morphologic exam (06/28/2015 4:49 AM DOOR FRAME ASSEMBLER MACHINE) WBC 10.3(H) 3.8 - 9.8 K/cumm HISTORICAL RESULTS RBC 3.22(L) 3.90 - 5.00 M/cumm HISTORICAL RESULTS Hgb 8.5(L) 12.1 - 15.1 g/dl HISTORICAL RESULTS Hct 27.2(L) 36.1 - 44.3 % HISTORICAL RESULTS MCV 84.5 80.0 - 100.0 fl HISTORICAL RESULTS MCH 26.4(L) 26.7 - 33.7 pg HISTORICAL RESULTS MCHC 31.3(L) 32.7 - 36.0 g/dl HISTORICAL RESULTS Rdw 14.9(H) 11.5 - 14.6 % HISTORICAL RESULTS Platelets 192 140 - 440 K/cumm HISTORICAL RESULTS MPV 9.4 8.0 - 12.0 fl HISTORICAL RESULTS NRBC 0.0 0.0 - 0.0 % HISTORIC AL RESULTS NRBC, abs 0.00 0.00 - 0.00 K/cumm HISTORICAL RESULTS Blood specimen (specimen) 06/28/2015 4:49 AM DOOR FRAME ASSEMBLER MACHINE us Historical Provider LAB BLOOD ORDERABLES Jessica reynolds Result HISTORICAL RESULTS * (ABNORMAL) Blood glucose, POC (06/28/2015 2:14 AM DOOR FRAME ASSEMBLER MACHINE) Glucose, POC, bld 110(H) 71 - 98 mg/dl HISTORICAL RESULTS Blood specimen (specimen) 06/28/2015 2:14 AM DOOR FRAME ASSEMBLER MACHINE Result [facility] Gilbert Helms MD LAB BLOOD ORDERABLES Fin al Result Performing Organization Address [facility] de Phone Number HISTORICAL RESULTS * (ABNORMAL) Blood glucose, POC (06/27/2015 9:23 PM DOOR FRAME ASSEMBLER MACHINE) Glucose, POC, bld 100(H) 71 - 98 mg/dl HISTORICAL RESULTS Blood specimen (specimen) 06/27/2015 9:23 PM DOOR FRAME ASSEMBLER MACHINE Result [facility] Gilbert Helms MD LAB BLOOD ORDERABLES Fin al Result Performing Organization Address [facility] de Phone Number HISTORICAL RESULTS * (ABNORMAL) Blood gas, arterial (06/27/2015 8:08 PM DOOR FRAME ASSEMBLER MACHINE) Ph, art 7.41 7.35 - 7.45 HISTORICAL RESULTS PCO2 41 35 - 45 mm Hg HISTORICAL RESULTS PO2, art 90 80 - 100 mm Hg HISTORICAL RESULTS BE, art 1 -2 - 2 mmol/L HISTORICAL RESULTS HCO3, art 25 22 - 26 mmol/L HISTORICAL RESULTS CO2, calc, art 27 23 - 27 mmol/L HISTORICAL RESULTS Hgb estimated, art 9.1(L) 12.1 - 15.1 g/dl HISTORICAL RESULTS O2 sat, art 97 94 - 100 % HISTORI MARSHALL RESULTS Oxygen (O2), inspired fraction (FiO2) 4.0 liters HISTORICAL RESULTS Referral specimen, collection site Radial Artery HISTORICAL RESULTS Grzegorz test Yes HISTORICA L RESULTS Arterial blood 06/27/2015 8: 08 PM DOOR FRAME ASSEMBLER MACHINE Result [facility] Gilbert Helms MD LAB BLOOD ORDERABLES Fin al Result Performing Organization Address [facility] de Phone Number HISTORICAL RESULTS * (ABNORMAL) Blood glucose, POC (06/27/2015 4:31 PM DOOR FRAME ASSEMBLER MACHINE) Glucose, POC, bld 105(H) 71 - 98 mg/dl HISTORICAL RESULTS Blood specimen (specimen) 06/27/2015 4:31 PM DOOR FRAME ASSEMBLER MACHINE Result [facility] Gilbert Helms MD LAB BLOOD ORDERABLES Fin al Result Performing Organization Address [facility] de Phone Number HISTORICAL RESULTS * (ABNORMAL) Blood hematocrit (06/27/2015 10:50 AM DOOR FRAME ASSEMBLER MACHINE) Hct 30.2(L) 36.1 - 44.3 % HISTORICAL RESULTS Blood specimen (specimen) 06/27/2015 10:50 AM DOOR FRAME ASSEMBLER MACHINE Historical Provider LAB BLOOD ORDERABLES Jessica l Result Performing Organization Address [facility] de Phone Number HISTORICAL RESULTS * (ABNORMAL) Blood hemoglobin (06/27/2015 10:50 AM DOOR FRAME ASSEMBLER MACHINE) Hgb 9.1(L) 12.1 - 15.1 g/dl HISTORICAL RESULTS Blood specimen (specimen) 06/27/2015 10:50 AM DOOR FRAME ASSEMBLER MACHINE Historical Provider LAB BLOOD ORDERABLES Jessica l Result Performing Organization Address [facility] de Phone Number HISTORICAL RESULTS * (ABNORMAL) Blood glucose, POC (06/27/2015 10:49 AM DOOR FRAME ASSEMBLER MACHINE) Glucose, POC, bld 160(H) 71 - 98 mg/dl HISTORICAL RESULTS Blood specimen (specimen) 06/27/2015 10:49 AM DOOR FRAME ASSEMBLER MACHINE Result [facility] Gilbert Helms MD LAB BLOOD ORDERABLES Fin al Result Performing Organization Address [facility] de Phone Number HISTORICAL RESULTS * XR Hip Intraoperative (06/27/2015 10:28 AM DOOR FRAME ASSEMBLER MACHINE) Anatomical Region Laterality Modality N/A Radiographic Pamela ging 06/27/2015 10:2 8 AM DOOR FRAME ASSEMBLER MACHINE Narrative 06/29/2015 3:17 PM DOOR FRAME ASSEMBLER MACHINE XR HIP IN OR ?1-4 VWS ??[id number] ??- LEFT Acc#: ??[id number] XR NO CHARGE FLUORO >THAN 1HR ??Acc#: ??[id number] DATE OF EXAM: ??Jun 27 2015 CLINICAL HISTORY: Left intertrochanteric fracture. RESULT: Two image intensification views obtained with C-arm fluoroscope camera in Operating Room. ??Left hip pinning for intertrochanteric fracture. ??An intramedullary jeff is seen within the left femur extending from the greater trochanter inferiorly to the distal metadiaphyseal region. ??A dynamic pin extends through the intramedullary jeff in the intertrochanteric region through the femoral neck and into the femoral head. ??Position at the intertrochanteric fracture is good, there is still evidence of some mild displacement. ??Fluoroscopy time was 33 seconds. IMPRESSION: 1. LEFT HIP PINNING FOR INTERTROCHANTERIC FRACTURE. Interpreting Physician: ??KATHERINE ORELLANA M.D. ??Read on: ??Jun 28 2015 ??6:35P Transcribed by: ??lidia ??On: Jun 28 2015 ??6:35P Approved Electronically by: ??KATHERINE ORELLANA M.D. ??on: ??Jun 29 2015 ??3:17P Attending: ??GILBERT HELMS Requesting: ??DR MANOJ DIAZ Requesting Fax: ??[phone] Attending Fax: ??-- Attending ID: ??[id number] Requesting ID: ??[id number] Report To 1 ID: ??[id number] Report To 1 Name: ??GILBERT HELMS Report To 1 FAX: ??-- NextGen Order #: Procedure Note Provider, MD Sofiya - 11/07/2016 XR HIP IN OR 1-4 S [id number] - LEFT Acc#: [id number] XR NO CHARGE FLUORO >THAN 1HR Acc#: [id number] DATE OF EXAM: Jun 27 2015 CLINICAL HISTORY: Left intertrochanteric fracture. RESULT: Two image intensification views obtained with C-arm fluoroscope camera inOperating Room. Left hip pinning for intertrochanteric fracture. Anintramedullary ejff is seen within the left femur extending from thegreater trochanter inferiorly to the distal metadiaphyseal region. Adynamic pin extends through the intramedullary jeff in theintertrochanteric region through the femoral neck and into the femoralhead. Position at the intertrochanteric fracture is good, there is stillevidence of some mild displacement. Fluoroscopy time was 33 seconds. IMPRESSION: 1. LEFT HIP PINNING FOR INTERTROCHANTERIC FRACTURE. Interpreting Physician: KATHERINE ORELLANA M.D. Read on: Jun 28 2015 6:35P Transcribed by: lidia On: Jun 28 2015 6:35P Approved Electronically by: KATHERINE ORELLANA M.D. on: Jun 29 2015 3:17P Attending: GILBERT HELMS Requesting: DR MANOJ DIAZ Requesting Attending Fax: -- Attending ID: [id number] Requesting ID: [id number] Report To 1 ID: [id number] Report To 1 Name: GILBERT HELMS Report To 1 FAX: -- NextGen Order #: us Historical Provider IMG XR PROCEDURES Final R esult * (ABNORMAL) Blood glucose, POC (06/27/2015 7:15 AM DOOR FRAME ASSEMBLER MACHINE) Glucose, POC, bld 188(H) 71 - 98 mg/dl HISTORICAL RESULTS Blood specimen (specimen) 06/27/2015 7:15 AM DOOR FRAME ASSEMBLER MACHINE Gilbert Helms MD LAB BLOOD ORDERABLES Fin al Result HISTORICAL RESULTS * (ABNORMAL) Plasma basic metabolic panel (06/27/2015 3:55 AM DOOR FRAME ASSEMBLER MACHINE) Sodium 134(L) 135 - 145 mmol/L HISTORICAL RESULTS K, pl 4.3 3.5 - 5.1 mmol/L HISTORICAL RESULTS Chloride 96(L) 97 - 110 mmol/L HISTORICAL RESULTS CO2 27 22 - 32 mmol/L HISTORICAL RESULTS A. gap 15 8 - 16 mmol/L HISTORICAL RESULTS Glucose 169 70 - 199 mg/dl HISTORICAL RESULTS Comment: [...] data was last revised on 2014. BUN 12.2 8.0 - 25.0 mg/dl HISTORICAL RESULTS Creatinine 1.01 0.60 - 1.10 mg/dl HISTORICAL RESULTS Calcium 8.7 8.6 - 10.2 mg/dl HISTORICAL RESULTS BUN/creat ratio 12 10 - 20 HIST ORICAL RESULTS Plasma 06/27/2015 3:55 AM DOOR FRAME ASSEMBLER MACHINE Historical Provider LAB BLOOD ORDERABLES Jessica l Result Performing Organization Address [place]/[facility] Co de Phone Number HISTORICAL RESULTS * (ABNORMAL) Blood cell morphologic exam (06/27/2015 3:55 AM DOOR FRAME ASSEMBLER MACHINE) Neutrophils 73.2 44.0 - 80.0 % HISTORICAL RESULTS Immature granulocytes 0.3 0.0 - 1.0 % HISTORICAL RESULTS Lymphocytes 15.7 13.0 - 44.0 % HISTORICAL RESULTS Monos 8.5 2.0 - 11.0 % HISTORICAL RESULTS Eosinophils 1.7 0.0 - 6.0 % HISTORICAL RESULTS Basophils 0.6 0.0 - 3.0 % HISTORICAL RESULTS Neutrophils, abs 8.6(H) 1.6 - 7.0 K/cumm HISTORICAL RESULTS Immature granulocyte, abs 0.04 0.00 - 0.20 K/cumm HISTORICAL RESULTS Lymphocytes, abs 1.8 0.5 - 4.3 K/cumm HISTORICAL RESULTS Monocytes, absolute 1.0 0.1 - 1.0 K/cumm HISTORICAL RESULTS Eosinophils, abs 0.2 0.0 - 0.6 K/cumm HISTORICAL RESULTS Basophils, abs 0.1 0.0 - 0.3 K/cumm HISTORICAL RESULTS Blood specimen (specimen) 06/27/2015 3:55 AM DOOR FRAME ASSEMBLER MACHINE Historical Provider LAB BLOOD ORDERABLES Jessica l Result Performing Organization Address [place]/[facility] Co de Phone Number HISTORICAL RESULTS * (ABNORMAL) Blood cell count (CBC), morphologic exam (06/27/2015 3:55 AM DOOR FRAME ASSEMBLER MACHINE) WBC 11.7(H) 3.8 - 9.8 K/cumm HISTORICAL RESULTS RBC 3.49(L) 3.90 - 5.00 M/cumm HISTORICAL RESULTS Hgb 9.0(L) 12.1 - 15.1 g/dl HISTORICAL RESULTS Hct 29.3(L) 36.1 - 44.3 % HISTORICAL RESULTS MCV 84.0 80.0 - 100.0 fl HISTORICAL RESULTS MCH 25.8(L) 26.7 - 33.7 pg HISTORICAL RESULTS MCHC 30.7(L) 32.7 - 36.0 g/dl HISTORICAL RESULTS Rdw 14.9(H) 11.5 - 14.6 % HISTORICAL RESULTS Platelets 230 140 - 440 K/cumm HISTORICAL RESULTS MPV 9.1 8.0 - 12.0 fl HISTORICAL RESULTS NRBC 0.0 0.0 - 0.0 % HISTORIC AL RESULTS NRBC, abs 0.00 0.00 - 0.00 K/cumm HISTORICAL RESULTS Blood specimen (specimen) 06/27/2015 3:55 AM DOOR FRAME ASSEMBLER MACHINE Result [facility] Provider LAB BLOOD ORDERABLES Jessica rodolfo Result HISTORICAL RESULTS * Serum estimated glomerular filtration rate (06/27/2015 3:55 AM DOOR FRAME ASSEMBLER MACHINE) eGFR 58 ml/min/1.7 3 m2 HISTORICAL RESULTS Comment: Interpretation of Estimated GFR (eGFR): Normal ?>/= 60 mL/min/1.73m2 Possible Chronic Kidney Disease ??15 - 59 mL/min/1.73m2 Possible Kidney Failure ?< 15 ??mL/min/1.73m2 If -Armenian multiply value by 1.16. ??Estimated glomerular filtration rate is determined by the CKD-EPI equation recommended by the National Kidney Foundation (KDIGO 2012 Clinical Practice Guideline for the Evaluation and Management of Chronic Kidney Disease. ??Kidney Intnl Suppl Jul 2012;3:1). ??The CKD-EPI equation should not be used in acute renal failure or acute kidney injury and is not valid in children. Serum 06/27/2015 3:55 AM DOOR FRAME ASSEMBLER MACHINE Historical Provider LAB BLOOD ORDERABLES Jessica l Result Performing Organization Address [facility] de Phone Number HISTORICAL RESULTS * (ABNORMAL) Blood glucose, POC (06/27/2015 2:09 AM DOOR FRAME ASSEMBLER MACHINE) Glucose, POC, bld 147(H) 71 - 98 mg/dl HISTORICAL RESULTS Blood specimen (specimen) 06/27/2015 2:09 AM DOOR FRAME ASSEMBLER MACHINE Gilbert Helms MD LAB BLOOD ORDERABLES Fin al Result Performing Organization Address [facility] de Phone Number HISTORICAL RESULTS * (ABNORMAL) Blood glucose, POC (06/26/2015 9:34 PM DOOR FRAME ASSEMBLER MACHINE) Glucose, POC, bld 137(H) 71 - 98 mg/dl HISTORICAL RESULTS Blood specimen (specimen) 06/26/2015 9:34 PM DOOR FRAME ASSEMBLER MACHINE Result [facility] Gilbert Helms MD LAB BLOOD ORDERABLES Fin al Result Performing Organization Address [facility] de Phone Number HISTORICAL RESULTS * (ABNORMAL) Blood glucose, POC (06/26/2015 4:17 PM DOOR FRAME ASSEMBLER MACHINE) Glucose, POC, bld 195(H) 71 - 98 mg/dl HISTORICAL RESULTS Blood specimen (specimen) 06/26/2015 4:17 PM DOOR FRAME ASSEMBLER MACHINE Result [facility] Gilbert Helms MD LAB BLOOD ORDERABLES Fin al Result Performing Organization Address [facility] de Phone Number HISTORICAL RESULTS * Blood ABO, Rh (06/26/2015 11:35 AM DOOR FRAME ASSEMBLER MACHINE) ABO, Rho (D) interp B Positive HISTORICAL RESULTS Blood specimen (specimen) 06/26/2015 11:35 AM DOOR FRAME ASSEMBLER MACHINE Historical Provider LAB BLOOD ORDERABLES Jessica l Result Performing Organization Address [facility] de Phone Number HISTORICAL RESULTS * Blood indirect antiglobulin test (06/26/2015 11:35 AM DOOR FRAME ASSEMBLER MACHINE) Janeth, indirect Negative ABSC HISTORICAL RESULTS Blood specimen (specimen) 06/26/2015 11:35 AM DOOR FRAME ASSEMBLER MACHINE Historical Provider LAB BLOOD ORDERABLES Jessica reynolds Result HISTORICAL RESULTS * (ABNORMAL) Plasma comprehensive metabolic panel (06/26/2015 11:35 AM DOOR FRAME ASSEMBLER MACHINE) Sodium 137 135 - 145 mmol/L HISTORICAL RESULTS K, pl 4.3 3.5 - 5.1 mmol/L HISTORICAL RESULTS Chloride 98 97 - 110 mmol/L HISTORICAL RESULTS CO2 24 22 - 32 mmol/L HISTORICAL RESULTS A. gap 19(H) 8 - 16 mmol/L HISTORICAL RESULTS Glucose 180 70 - 199 mg/dl HISTORICAL RESULTS Comment: [...] data was last revised on 2014. BUN 12.6 8.0 - 25.0 mg/dl HISTORICAL RESULTS Creatinine 0.94 0.60 - 1.10 mg/dl HISTORICAL RESULTS BUN/creat ratio 13 10 - 20 HIST ORICAL RESULTS Calcium 8.9 8.6 - 10.2 mg/dl HISTORICAL RESULTS Protein, sr 7.3 6.0 - 8.4 g/dl HISTORICAL RESULTS Alb 3.7 3.6 - 5.0 g/dl HISTORICAL RESULTS Alb/glob ratio 1.0(L) 1.1 - 1.8 ratio HISTORICAL RESULTS Alk phos 65 40 - 130 Units/L HISTORICAL RESULTS ALT 30 5 - 45 Units/L HISTORICAL RESULTS AST 38 10 - 40 Units/L HISTORICAL RESULTS Bilirubin 0.5 <=1.2 mg/dl HISTORICAL RESULTS Plasma 06/26/2015 11:3 5 AM DOOR FRAME ASSEMBLER MACHINE Historical Provider LAB BLOOD ORDERABLES Jessica reynolds Result HISTORICAL RESULTS * (ABNORMAL) Blood partial thromboplastin time (PTT) (06/26/2015 11:35 AM DOOR FRAME ASSEMBLER MACHINE) PTT 56.0(H) 25.0 - 37.0 seconds HISTORICAL RESULTS Blood specimen (specimen) 06/26/2015 11:35 AM DOOR FRAME ASSEMBLER MACHINE Result [facility] Provider LAB BLOOD ORDERABLES Jessica rodolfo Result Performing Organization Address [facility] de Phone Number HISTORICAL RESULTS * Blood prothrombin time (PT) (06/26/2015 11:35 AM DOOR FRAME ASSEMBLER MACHINE) Prothrombin time (PT) 12.5 9.5 - 12.5 seconds HISTORICAL RESULTS INR 1.15 0.90 - 1.20 HISTORIC AL RESULTS Comment: Interpretive Data Recommended ranges for Protime INR: 2.0 - 3.0 Most indications for Warfarin therapy (e.g. Treatment of DVT, PE, bioprosthetic valve replacement, prophylaxis venous thrombosis, atrial fibrillation). 2.5 - 3.5 Mechanical mitral valve or dual mechanical mitral and Aortic valve replacement. Current Interpretive Data was last revised on 2015. Blood specimen (specimen) 06/26/2015 11:35 AM DOOR FRAME ASSEMBLER MACHINE Result [facility] Historical Provider LAB BLOOD ORDERABLES Jessica rodolfo Result Performing Organization Address [facility] de Phone Number HISTORICAL RESULTS * (ABNORMAL) Blood cell morphologic exam (06/26/2015 11:35 AM DOOR FRAME ASSEMBLER MACHINE) Neutrophils 81.7(H) 44.0 - 80.0 % HISTORICAL RESULTS Immature granulocytes 0.6 0.0 - 1.0 % HISTORICAL RESULTS Lymphocytes 11.1(L) 13.0 - 44.0 % HISTORICAL RESULTS Monos 4.9 2.0 - 11.0 % HISTORICAL RESULTS Eosinophils 1.1 0.0 - 6.0 % HISTORICAL RESULTS Basophils 0.6 0.0 - 3.0 % HISTORICAL RESULTS Neutrophils, abs 11.6(H) 1.6 - 7.0 K/cumm HISTORICAL RESULTS Immature granulocyte, abs 0.08 0.00 - 0.20 K/cumm HISTORICAL RESULTS Lymphocytes, abs 1.6 0.5 - 4.3 K/cumm HISTORICAL RESULTS Monocytes, absolute 0.7 0.1 - 1.0 K/cumm HISTORICAL RESULTS Eosinophils, abs 0.2 0.0 - 0.6 K/cumm HISTORICAL RESULTS Basophils, abs 0.1 0.0 - 0.3 K/cumm HISTORICAL RESULTS Blood specimen (specimen) 06/26/2015 11:35 AM DOOR FRAME ASSEMBLER MACHINE Historical Provider LAB BLOOD ORDERABLES Jessica reynolds Result Performing Organization Address City/State/[facility] Co de Phone Number HISTORICAL RESULTS * (ABNORMAL) Blood cell count (CBC), morphologic exam (06/26/2015 11:35 AM DOOR FRAME ASSEMBLER MACHINE) WBC 14.2(H) 3.8 - 9.8 K/cumm HISTORICAL RESULTS RBC 3.82(L) 3.90 - 5.00 M/cumm HISTORICAL RESULTS Hgb 10.0(L) 12.1 - 15.1 g/dl HISTORICAL RESULTS Hct 32.1(L) 36.1 - 44.3 % HISTORICAL RESULTS MCV 84.0 80.0 - 100.0 fl HISTORICAL RESULTS MCH 26.2(L) 26.7 - 33.7 pg HISTORICAL RESULTS MCHC 31.2(L) 32.7 - 36.0 g/dl HISTORICAL RESULTS Rdw 14.7(H) 11.5 - 14.6 % HISTORICAL RESULTS Platelets 241 140 - 440 K/cumm HISTORICAL RESULTS MPV 9.0 8.0 - 12.0 fl HISTORICAL RESULTS NRBC 0.0 0.0 - 0.0 % HISTORIC AL RESULTS NRBC, abs 0.00 0.00 - 0.00 K/cumm HISTORICAL RESULTS Blood specimen (specimen) 06/26/2015 11:35 AM DOOR FRAME ASSEMBLER MACHINE Historical Provider LAB BLOOD ORDERABLES Jessica reynolds Result Performing Organization Address [place]/[facility] Co de Phone Number HISTORICAL RESULTS * Serum estimated glomerular filtration rate (06/26/2015 11:35 AM DOOR FRAME ASSEMBLER MACHINE) eGFR >60 ml/min/1.7 3 m2 HISTORICAL RESULTS Comment: Interpretation of Estimated GFR (eGFR): Normal ?>/= 60 mL/min/1.73m2 Possible Chronic Kidney Disease ??15 - 59 mL/min/1.73m2 Possible Kidney Failure ?< 15 ??mL/min/1.73m2 If -Armenian multiply value by 1.16. ??Estimated glomerular filtration rate is determined by the CKD-EPI equation recommended by the National Kidney Foundation (KDIGO 2012 Clinical Practice Guideline for the Evaluation and Management of Chronic Kidney Disease. ??Kidney Intnl Suppl Jul 2012;3:1). ??The CKD-EPI equation should not be used in acute renal failure or acute kidney injury and is not valid in children. Serum 06/26/2015 11:3 5 AM DOOR FRAME ASSEMBLER MACHINE us Historical Provider LAB BLOOD ORDERABLES Jessica reynolds Result HISTORICAL RESULTS * XR Pelvis (RadLink) 1 View (06/26/2015 9:52 AM DOOR FRAME ASSEMBLER MACHINE) Anatomical Region Laterality Modality Body, Pelvis N/A Radiographic Pamela ging 06/26/2015 9:52 AM DOOR FRAME ASSEMBLER MACHINE Narrative 06/27/2015 9:43 AM DOOR FRAME ASSEMBLER MACHINE XR Pelvis 1-2 Views ?? [id number] ??Acc#: ??[id number] DATE OF EXAM: ??Jun 26 2015 CLINICAL HISTORY: Injury due to fall. Left pelvic pain. RESULT: Single AP view of the pelvis obtained. ??An acute mildly displaced mildly comminuted left intertrochanteric fracture. ??No other fracture is seen. Mild degenerative changes of the hips. ??Degenerative changes of the visualized portion of the lower lumbar spine. ??Calcification of the pelvis represent phleboliths. IMPRESSION: 1. ??ACUTE MILDLY COMMINUTED MILDLY DISPLACED LEFT INTERTROCHANTERIC FRACTURE. 2. ??DEGENERATIVE CHANGES. Patient admitted to hospital. Interpreting Physician: ??KATHERINE ORELLANA M.D. ??Read on: ??Jun 26 2015 ??9:57A Transcribed by: ??ylc ??On: Jun 26 2015 ??2:09P Approved Electronically by: ??KATHERINE ORELLANA M.D. ??on: ??Jun 27 2015 ??9:43A Attending: ??GILBERT HELMS Requesting: ??KATHERINE COREAS Requesting Fax: ??-- Attending Fax: ??-- Attending ID: ??[id number] Requesting ID: ??[id number] Report To 1 ID: ??[id number] Report To 1 Name: ??GILBERT HELMS Report To 1 FAX: ??-- NextGen Order #: Procedure Note Provider, MD Sofiya - 11/07/2016 XR Pelvis 1-2 Views [id number] Acc#: [id number] DATE OF EXAM: Jun 26 2015 CLINICAL HISTORY: Injury due to fall. Left pelvic pain. RESULT: Single AP view of the pelvis obtained. An acute mildly displaced mildlycomminuted left intertrochanteric fracture. No other fracture is seen.Mild degenerative changes of the hips. Degenerative changes of thevisualized portion of the lower lumbar spine. Calcification of the pelvisrepresent phleboliths. IMPRESSION: 1. ACUTE MILDLY COMMINUTED MILDLY DISPLACED LEFT INTERTROCHANTERICFRACTURE. 2. DEGENERATIVE CHANGES. Patient admitted to hospital. Interpreting Physician: KATHERINE ORELLANA M.D. Read on: Jun 26 2015 9:57A Transcribed by: [facility] On: Jun 26 2015 2:09P Approved Electronically by: KATHERINE ORELLANA M.D. on: Jun 27 2015 9:43A Attending: GILBERT HELMS Requesting: KATHERINE COREAS Requesting Fax: -- Attending Fax: -- Attending ID: [id number] Requesting ID: [id number] Report To 1 ID: [id number] Report To 1 Name: GILBERT HELMS Report To 1 FAX: -- NextGen Order #: us Historical Provider IMAriel XR PROCEDURES Final R esult * XR Hip 2+ VW (06/26/2015 9:52 AM DOOR FRAME ASSEMBLER MACHINE) Anatomical Region Laterality Modality N/A Radiographic Pamela ging 06/26/2015 9:52 AM DOOR FRAME ASSEMBLER MACHINE Narrative 06/27/2015 9:43 AM DOOR FRAME ASSEMBLER MACHINE XR Hip Min 2 Views L ?? [id number] ??Acc#: ??[id number] DATE OF EXAM: ??Jun 26 2015 CLINICAL HISTORY: Injury due to fall. Left hip pain. RESULT: Two views obtained. ??An acute mildly displaced left intertrochanteric fracture, mildly comminuted. ??Mild displacement, maximal displacement in the region of 9 mm. ??Mild degenerative changes of the left hip. ??No other fracture is seen. IMPRESSION: 1. ??ACUTE MILDLY DISPLACED MILDLY COMMINUTED LEFT INTERTROCHANTERIC FRACTURE. 2. ??MILD DEGENERATIVE OSTEOARTHRITIC CHANGES. Patient admitted. Interpreting Physician: ??KATHERINE ORELLANA M.D. ??Read on: ??Jun 26 2015 ??9:53A Transcribed by: ??fabricio ??On: Jun 26 2015 ??2:07P Approved Electronically by: ??KATHERINE ORELLANA M.D. ??on: ??Jun 27 2015 ??9:43A Attending: ??GILBERT HELMS Requesting: ??KATHERINE COREAS Requesting Fax: ??-- Attending Fax: ??-- Attending ID: ??[id number] Requesting ID: ??[id number] Report To 1 ID: ??[id number] Report To 1 Name: ??GILBERT HELMS Report To 1 FAX: ??-- NextGen Order #: Procedure Note Provider, MD Sofiya - 11/07/2016 XR Hip Min 2 Views L [id number] Acc#: [id number] DATE OF EXAM: Jun 26 2015 CLINICAL HISTORY: Injury due to fall. Left hip pain. RESULT: Two views obtained. An acute mildly displaced left intertrochantericfracture, mildly comminuted. Mild displacement, maximal displacement inthe region of 9 mm. Mild degenerative changes of the left hip. No otherfracture is seen. IMPRESSION: 1. ACUTE MILDLY DISPLACED MILDLY COMMINUTED LEFT INTERTROCHANTERICFRACTURE. 2. MILD DEGENERATIVE OSTEOARTHRITIC CHANGES. Patient admitted. Interpreting Physician: KATHERINE ORELLANA M.D. Read on: Jun 26 2015 9:53A Transcribed by: fabricio On: Jun 26 2015 2:07P Approved Electronically by: KATHERINE ORELLANA M.D. on: Jun 27 2015 9:43A Attending: GILBERT HELMS Requesting: KATHERINE COREAS Requesting Fax: -- Attending Fax: -- Attending ID: [id number] Requesting ID: [id number] Report To 1 ID: [id number] Report To 1 Name: GILBERT HELMS Report To 1 FAX: -- NextGen Order #: Historical Provider MD LAZO XR PROCEDURES Final R esult * XR Chest 1 View (06/26/2015 9:52 AM DOOR FRAME ASSEMBLER MACHINE) Anatomical Region Laterality Modality Body, Chest N/A Radiographic Pamela ging 06/26/2015 9:52 AM DOOR FRAME ASSEMBLER MACHINE Narrative 06/27/2015 9:43 AM DOOR FRAME ASSEMBLER MACHINE XR Chest 1 View ? [id number] ??Acc#: ??[id number] DATE OF EXAM: ??Jun 26 2015 CLINICAL HISTORY: Injury due to fall. ??Left chest pain. RESULT: A single AP supine view obtained. ??Cardiac silhouette size is borderline enlarged for technique. ??Pulmonary vascularity is within the range of normal. ??Lungs are free of confluent infiltrates. Costophrenic angles are sharp. ??Mild elevation right hemidiaphragm. ??Degenerative changes thoracic spine. IMPRESSION: 1. ??NO ACUTE PULMONARY DISEASE. Patient admitted to hospital. Interpreting Physician: ??KATHERINE ORELLANA M.D. ??Read on: ??Jun 26 2015 ??9:59A Transcribed by: ??wendi ??On: Jun 26 2015 ??2:10P Approved Electronically by: ??KATHERINE ORELLANA M.D. ??on: ??Jun 27 2015 ??9:43A Attending: ??GILBERT HELMS Requesting: ??KATHERINE COREAS Requesting Fax: ??-- Attending Fax: ??-- Attending ID: ??[id number] Requesting ID: ??[id number] Report To 1 ID: ??[id number] Report To 1 Name: ??GILBERT HELMS Report To 1 FAX: ??-- NextGen Order #: Procedure Note Provider, MD Sofiya - 11/07/2016 XR Chest 1 View [id number] Acc#: [id number] DATE OF EXAM: Jun 26 2015 CLINICAL HISTORY: Injury due to fall. Left chest pain. RESULT: A single AP supine view obtained. Cardiac silhouette size is borderlineenlarged for technique. Pulmonary vascularity is within the range ofnormal. Lungs are free of confluent infiltrates. Costophrenic angles aresharp. Mild elevation right hemidiaphragm. Degenerative changes thoracicspine. IMPRESSION: 1. NO ACUTE PULMONARY DISEASE. Patient admitted to hospital. Interpreting Physician: KATHERINE ORELLANA M.D. Read on: Jun 26 2015 9:59A Transcribed by: [facility] On: Jun 26 2015 2:10P Approved Electronically by: KATHERINE ORELLANA M.D. on: Jun 27 2015 9:43A Attending: GILBERT HELMS Requesting: KATHERINE COREAS Requesting Fax: -- Attending Fax: -- Attending ID: [id number] Requesting ID: [id number] Report To 1 ID: [id number] Report To 1 Name: GILBERT HELMS Report To 1 FAX: -- NextGen Order #: Historical Provider IMG XR PROCEDURES Final R esult * ELECTROCARDIOGRAPHY (ECG) (06/26/2015) Narrative 06/26/2015 Ordered by an unspecified provider. Historical Provider ECG ORDERABLES Final Res ult documented in this encounter Visit Diagnoses Diagnosis Closed displaced intertrochanteric fracture of left femur (HCC) Metabolic syndrome Dysmetabolic Syndrome X Polyneuropathy Unspecified hereditary and idiopathic peripheral neuropathy Morbid (severe) obesity due to excess calories (HCC) Sarcoidosis Type 2 diabetes mellitus without complications ([facility]/HCC) (HCC) Essential (primary) hypertension Unspecified essential hypertension Hyperlipidemia Other and unspecified hyperlipidemia History of colonic polyps Personal history of colonic polyps Fall (on) (from) other stairs and steps, initial encounter Private driveway to single-family private house as place of occurrence of external cause Presence of both artificial knee joints documented in this encounter Care Teams Manager Of Enterprise Relationship Specialty Start Date End Date Gilbert Helms MD [address] [place] [address] PCP - General 09/30/12 09/26/16 documented as of this encounter
--- OUTSIDE RECORDS SUMMARY | 2024-07-11 22:43 | XMS_ITS | Encounter Summary ---
Author Organization [facility] Healthcare Address [address] [place] [address] Care Team Providers Care Pin Drafter Name Role Phone Clayton Helms MD Primary Care Provider + Encounter Details Date Type Department Care Team (Late st Contact Info) Description 07/04/2014 5:19 PM SIGNAL WIRER - 07/04/2014 11:59 PM SIGNAL WIRER Hospital Encounter [facility] Clayton Wyman MD [address] [place] [address] Essential hypertension; Type 2 or unspecified type diabetes mellitus; Other and unspecified hyperlipidemia Social History Tobacco Use Types Packs/Day Years Used Date Smoking Tobacco: Never Alcohol Use Standard Drinks/Week Comments Yes 0 (1 standard drink = 0.6 oz pur e alcohol) Comments Unknown Sex and Gender Information Value Date Recorded Sex Assigned at Not on file Legal Sex Female 11:52 PM SIGNAL WIRER Gender Identity Not on file Sexual Orientation [...] TWICE A DAY 120 11 06/24/2014 7 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 needle, diabetic (NOVOFINE 32) 32 [...] Procedure Name Priority Date/Time Associated Diagnosis Comments DISCHARGE CUMULATIVE SUMMARY ADDENDUM Routine 07/10/2014 2:40 AM SIGNAL WIRER URINE MICROSCOPY Routine 07/04/2014 5:45 PM SIGNAL WIRER URINALYSIS Routine 07/04/2014 5:45 PM SIGNAL WIRER SERUM HEPATIC FUNCTION PANEL Routine 07/04/2014 5:37 PM SIGNAL WIRER BLOOD WBC CELL MORPHOLOGIC EXAM, AUTO Routine 07/04/2014 5:37 PM SIGNAL WIRER BLOOD ERYTHROCYTE SEDIMENTATION RATE (ESR) Routine 07/04/2014 5:37 PM SIGNAL WIRER BLOOD CELL COUNT (CBC) Routine 4 5:37 PM SIGNAL WIRER MICROBIOLOGY SUMMARY Routine 07/04/2014 12:00 AM SIGNAL WIRER DISCHARGE LABORATORY CUMULATIVE REPORT Routine 07/04/2014 12:00 AM SIGNAL WIRER documented in this encounter Results * Discharge Cumulative Summary Addendum (07/10/2014 2:40 AM SIGNAL WIRER) 07/10/2014 2:40 AM SIGNAL WIRER Narrative HISTORICAL RESULTS - 07/10/2014 2:40 AM SIGNAL WIRER Patient No: [id number] ? [facility] Patient Name: SUSANA RENTERIA ?[facility] Healthcare Age: 64 YRS ?: 1950 ?Sex:F ?[address] )[phone] ?? Adm Dt: 07/04/2014 ?[place] ??[address] Created: 07/10/2014 ??0240 ?? Pt. Type: R ? Discharge Dt: 07/04/2014 ? Pathologists: Radha Simms MD Admit Attend Dr: ALEXEY HELMS MD ? MICRO - BLOOD BLOOD CULTURE ? Collected: 07/04/14 1733 ? Received: 07/04/14 1811 Source: BLOOD ? Started: 12/22/14 1927 ?1OF2 [facility] ? PRELIMINARY REPORT ?07/05/141999 ? NO GROWTH AT 1 DAY ? FINAL REPORT ?07/09/141999 ? NO GROWTH AT 5 DAYS BLOOD CULTURE ? Collected: 07/04/14 1740 ? Received: 07/04/14 1811 Source: BLOOD ? Started: 07/04/141927 ?2OF2 [facility] 662 ? PRELIMINARY REPORT ?07/05/141999 ? NO GROWTH AT 1 DAY ? FINAL REPORT ?07/09/141999 ? NO GROWTH AT 5 DAYS ?? END OF CHART ? Page: ?? 1 Historical Provider LAB MICROBIOLOGY - GENERA L ORDERABLES Final Result HISTORICAL RESULTS * (ABNORMAL) Urinalysis (07/04/2014 5:45 PM SIGNAL WIRER) Color, ur YELLOW YELLOW HISTORICAL RESULTS Clarity, ur CLEAR CLEAR HISTORIC AL RESULTS Specific gravity, ur 1.013 1.003 - 1.030 gu HISTORICAL RESULTS Leukocyte esterase, ur Negative NEGATIVE HISTORICAL RESULTS Nitrites, ur Negative NEGATIVE HISTORI MARSHALL RESULTS pH, ur 5.5 6.0 HISTORICAL RESULTS Protein, ur 30 NEGATIVE HISTORIC AL RESULTS Glucose, ur 250 NEGATIVE HISTORIC AL RESULTS Ketones, ur Negative NEGATIVE HISTORIC AL RESULTS Urobilinogen, quant, ur 0.2 0.2 - 1.0 mg/dl HISTORICAL RESULTS Bilirubin, ur Negative NEGATIVE HISTOR ICAL RESULTS U Blood SMALL(A) NEGATIVE HISTORICAL RESULTS Urine 07/04/2014 5:45 PM SIGNAL WIRER Clayton Helms MD LAB BLOOD ORDERABLES Fin al Result Performing Organization Address [facility] de Phone Number HISTORICAL RESULTS * (ABNORMAL) Urine microscopy (07/04/2014 5:45 PM SIGNAL WIRER) WBC, ur 0 - 2 0 - 2 /hpf HISTORICA L RESULTS RBC, ur 2 - 5(A) 0 - 5 /hpf HISTORICA L RESULTS Epithelial cells, ur 2 - 5(A) 0 - 2 /hpf HISTORICAL RESULTS Bacteria, ur Negative NEGATIVE /hpf HISTORICAL RESULTS Hyaline casts 0 - 2 0 - 4 /lpf HISTO RICAL RESULTS Crystals, ur Negative NEGATIVE HISTORI MARSHALL RESULTS Yeast, ur Negative NEGATIVE HISTORICAL RESULTS Pathological casts, ur Negative NEGATIVE HISTORICAL RESULTS Urine 07/04/2014 5:45 PM SIGNAL WIRER Clayton Helms MD LAB BLOOD ORDERABLES Fin al Result Performing Organization Address [facility] de Phone Number HISTORICAL RESULTS * (ABNORMAL) Blood erythrocyte sedimentation rate (ESR) (07/04/2014 5:37 PM SIGNAL WIRER) Erythrocyte sedimentation rate 59.0(H) 0.0 - 30.0 mm/hr HISTORICAL RESULTS Blood specimen (specimen) 07/04/2014 5:37 PM SIGNAL WIRER Clayton Helms MD LAB BLOOD ORDERABLES Fin al Result Performing Organization Address [facility] de Phone Number HISTORICAL RESULTS * (ABNORMAL) Blood cell count (CBC) (07/04/2014 5:37 PM SIGNAL WIRER) WBC 10.2 4.0 - 10.5 K/cumm HISTORICAL RESULTS RBC 3.94(L) 4.20 - 5.40 M/cumm HISTORICAL RESULTS Hgb 11.1(L) 12.0 - 16.0 g/dl HISTORICAL RESULTS Hct 33.9(L) 37.0 - 47.0 % HISTORICAL RESULTS MCV 86.0 77.0 - 97.0 fl HISTORICAL RESULTS MCH 28.2 23.0 - 34.0 pg HISTORICAL RESULTS MCHC 32.7 32.0 - 36.0 g/dl HISTORICAL RESULTS Rdw 14.4 11.5 - 14.5 % HISTORICAL RESULTS Platelets 278 150 - 400 K/cumm HISTORICAL RESULTS MPV 9.6 7.4 - 10.4 fl HISTORICAL RESULTS Blood specimen (specimen) 07/04/2014 5:37 PM SIGNAL WIRER Clayton Helms MD LAB BLOOD ORDERABLES Fin al Result Performing Organization Address [facility] de Phone Number HISTORICAL RESULTS * (ABNORMAL) Blood WBC cell morphologic exam, auto (07/04/2014 5:37 PM SIGNAL WIRER) Pathologist [facility] Lymphocytes 21.8(L) 25.0 - 33.0 % HISTORICAL RESULTS Monos 9.4 0.0 - 13.0 % HISTORICAL RESULTS Neutrophils 64.5 54.0 - 69.0 % HISTORICAL RESULTS Eosinophils 3.1 0.0 - 10.0 % HISTORICAL RESULTS Basophils 0.9 0.0 - 1.0 % HISTORICAL RESULTS Immature granulocytes 0.3 0.0 - 1.0 % HISTORICAL RESULTS Lymphocytes, abs 2.2 1.2 - 3.4 K/cumm HISTORICAL RESULTS Monocytes, absolute 1.0(L) 1.1 - 1.9 K/cumm HISTORICAL RESULTS Neutrophils, abs 6.6(H) 1.4 - 6.5 K/cumm HISTORICAL RESULTS Eosinophils, abs 0.3 0.0 - 0.7 cells/cum m HISTORICAL RESULTS Basophils, abs 0.1 0.0 - 0.2 K/cumm HISTORICAL RESULTS Immature granulocyte, abs 0.0(H) 0.0 - 0.0 K/cumm HISTORICAL RESULTS Blood specimen (specimen) 07/04/2014 5:37 PM SIGNAL WIRER Clayton Helms MD LAB BLOOD ORDERABLES Fin al Result HISTORICAL RESULTS * Serum hepatic function panel (07/04/2014 5:37 PM SIGNAL WIRER) AST 25 5 - 40 Units/L HISTORICAL RESULTS ALT 22 15 - 70 Units/L HISTORICAL RESULTS Alk phos 116 44 - 125 Units/L HISTORICAL RESULTS Bilirubin 0.3 0.0 - 1.1 mg/dl HISTORICAL RESULTS Bilirubin, direct 0.2 0.0 - 0.3 mg/dl HISTORICAL RESULTS Alb 3.4 3.3 - 4.5 g/dl HISTORICAL RESULTS Protein, sr 7.8 6.4 - 8.0 g/dl HISTORICAL RESULTS Serum 07/04/2014 5:37 PM SIGNAL WIRER us Clayton Helms MD LAB BLOOD ORDERABLES Fin al Result HISTORICAL RESULTS * Microbiology Summary (07/04/2014 12:00 AM SIGNAL WIRER) 07/04/2014 Narrative HISTORICAL RESULTS - 07/10/2014 2:51 AM SIGNAL WIRER ? [facility] ?CLINICAL LABORATORIES ? MICROBIOLOGY REPORT PATIENT NAME: ??SUSANA RENTERIA ?MED RECORD#: ??[id number] BIRTHDATE: ??1950 ?? AGE: ??64 YRS SEX: F ?PATIENT#: ? [id number] ADMITTING DR: ??ALEXEY HELMS MD ? ATTENDING DR: ??ALEXEY HELMS MD ? ACCESSION#: ?? [id number] CREATED: ??07/10/14 ?? 0240 ? ADMIT DATE: ?? 07/04/14 ? MICRO - BLOOD BLOOD CULTURE ? Collected: 07/04/14 1733 ? Received: 07/04/14 1811 Source: BLOOD ? Started: 07/04/14 1927 ?1OF2 [facility] 662 ?07/05/14 2000 ? NO GROWTH AT 1 DAY ?07/09/14 2000 ? NO GROWTH AT 5 DAYS BLOOD CULTURE ? Collected: 07/04/14 1740 ? Received: 07/04/14 1811 Source: BLOOD ? Started: 07/04/14 1928 ?2OF2 [facility] 662 ?07/05/14 2000 ? NO GROWTH AT 1 DAY ?07/09/14 2000 ? NO GROWTH AT 5 DAYS ? MICRO - URINE URINE CULTURE ? Collected: 07/04/14 1745 ? Received: 07/04/14 1807 Source: CLEAN CATCH URINE ? Started: 07/04/14 1835 ?07/05/14 0639 ? NO GROWTH ?07/06/14 0620 ? 50,000-100,000 CFU/ML MULTIPLE GRAM POSITIVE ORGANISMS ?(SENSITIVITIES NOT PERFORMED) ?? END OF CHART us Historical Provider MD LAB MICROBIOLOGY - GENERA L ORDERABLES Final Result HISTORICAL RESULTS * Discharge Laboratory Cumulative Report (07/04/2014 12:00 AM SIGNAL WIRER) 07/04/2014 Narrative HISTORICAL RESULTS - 07/06/2014 12:32 AM SIGNAL WIRER Patient No: [id number] ? [facility] Patient Name: SUSANA RENTERIA ?[facility] Age: 64 YRS ?: 1950 ?Sex:F ?[address] )[phone] ?? Adm Dt: 07/04/2014 ?[place] ??[id number] Created: 07/06/2014 ??0032 ?? Pt. Type: R ? Discharge Dt: 07/04/2014 ? Pathologists: Radha Simms MD Admit Attend Dr: ALEXEY HELMS MD ? BLOOD CELL COUNTS ?Collection Date: ?07/04/14 ?Collection Time: ?1737 ? Ref Range: ?? Units: [4.00-10.50] /CMM ? WBC X 10^3 ? 10.16 [4.20-5.40] ??/CMM ? RBC X 10^6 ?3.94 L [12.0-16.0] ??G/DL ? HGB ? 11.1 L [37.0-47.0] ??% ?HCT ? 33.9 L [77.0-97.0] ??FL ? MCV ? 86.0 [23.0-34.0] ??PG ? MCH ? 28.2 [32.0-36.0] ??% ?MCHC ?32.7 [11.5-14.5] ??% ?RDW ? 14.4 [150-400] ?? /CMM ? PLT X 10^3 ? 278 ?BLOOD CELL DIFFERENTIAL ?Collection Date: ?07/04/14 ?Collection Time: ?1737 ? Ref Range: ?? Units: [54.0-69.0] ??% ?NEUTROPHILS ? 64.5 [25.0-33.0] ??% ?LYMPHOCYTES ? 21.8 L [0.0-13.0] ??% ?MONOCYTES ?9.4 [0.0-10.0] ??% ?EOSINOPHILS ?3.1 [0.0-1.0] ?? % ?BASOPHILS ?0.9 ? /CMM ? A LYMPHOCYTE ? 2.2 [0.0-1.0] ?? % ?IMM GRAN % ? 0.3 [0.00-0.02] ??/CMM ? A IMM GRAN ?0.03 H [1.1-1.9] ?? /CMM ? A MONOCYTE ? 1.0 L [1.4-6.5] ?? /CMM ? A NEUTROPHIL ? 6.6 H [0.0-0.7] ?? /CMM ? A EOSINOPHIL ? 0.3 [0.0-0.2] ?? /CMM ? A BASOPHIL ? 0.1 Footnotes and Symbols: L = Low, H = High ?? CONTINUED ?Page: ?? 1 Patient No: [id number] ? [facility] Patient Name: RENTERIA, TANIA ?[facility] Age: 64 YRS ?: 1950 ?Sex:F ?[address] )[phone] ?? Adm Dt: 07/04/2014 ?[place] ??[id number] Created: 07/06/2014 ??0032 ?? Pt. Type: R ? Discharge Dt: 07/04/2014 ? Pathologists: Radha Simms MD Admit Attend Dr: ALEXEY HELMS MD ?SPECIAL HEMATOLOGY ?Collection Date: ?07/04/14 ?Collection Time: ?1737 ? Ref Range: ?? Units: ?? [0-30] ?MM/HR ?SED RATE ?59 H ? GENERAL CHEMISTRY ?Collection Date: ?07/04/14 ?Collection Time: ?1737 ? Ref Range: ?? Units: [6.4-8.0] ?? G/DL ? TOTAL PROTEIN ?7.8 [3.3-4.5] ?? G/DL ? ALBUMIN ?3.4 [0.0-0.3] ?? MG/DL ?BILI DIRECT ?0.2 [0.0-1.1] ?? MG/DL ?BILI TOTAL ? 0.3 ??[44-125] ?? U/L ?ALK PHOS ? 116 ?? [5-40] ?U/L ?AST(SGOT) ? 25 f ??[15-70] ?U/L ?ALT(SGPT) ? 22 f Footnotes and Symbols: H = High, f = Footnote AST(SGOT) (11/25/13 -- Current) ALT(SGPT) (02/02/13 -- Current) ?? CONTINUED ?Page: ?? 2 Patient No: [id number] ? [facility] Patient Name: SUSANA RENTERIA ?[facility] Age: 64 YRS ?: 1950 ?Sex:F ?[address] )[phone] ?? Adm Dt: 07/04/2014 ?[place], [place] ??[id number] Created: 07/06/2014 ??0032 ?? Pt. Type: R ? Discharge Dt: 07/04/2014 ? Pathologists: Radha Simms MD Admit Attend Dr: ALEXEY HELMS MD ?URINALYSIS ?Collection Date: ?07/04/14 ?Collection Time: ?1744 ? Ref Range: ?? Units: [YELLOW] ? U COLOR ? YELLOW ??[CLEAR] ? U APPEARANCE ? CLEAR [1.003-1.030] ? U SPEC GRAVITY ? 1.013 [NEGATIVE] ?U LEUKO ESTRASE ? NEGATIVE [NEGATIVE] ?U NITRITE ? NEGATIVE ?? [6.0] ?U PH ? 5.5 [NEGATIVE] ?U PROTEIN ? 30 [NEGATIVE] ?U GLUCOSE ?250 [NEGATIVE] ?U KETONES ? NEGATIVE [0.2- 1.0] ?UROBILINOGEN ? 0.2 [NEGATIVE] ?U BILIRUBIN ? NEGATIVE [NEGATIVE] ?U BLOOD ?SMALL * ?? [0-2] ?U WBC ?0-2 ?? [0-5] ?U RBC ?2-5 * ?? [0-2] ?U EPI CELLS ?2-5 * [NEGATIVE] ?U BACTERIA ?NEGATIVE ?U YEASTS ?NEGATIVE ?? [0-4] ?U HYALINE CASTS ?0-2 [NEGATIVE] ?U CRYSTALS ?NEGATIVE [NEGATIVE] ?U PATH CASTS ?NEGATIVE Footnotes and Symbols: * = Abnormal ?? CONTINUED ?Page: ?? 3 Patient No: [id number] ? [facility] Patient Name: RENTERIA, TANIA ?[facility] Age: 64 YRS ?: 1950 ?Sex:F ?[address] )[phone] ?? Adm Dt: 07/04/2014 ?[place], [place] ??[id number] Created: 07/06/2014 ??0032 ?? Pt. Type: R ? Discharge Dt: 07/04/2014 ? Pathologists: Radha Simms MD Admit Attend Dr: ALEXEY HELMS MD ? MICRO - BLOOD BLOOD CULTURE ? Collected: 07/04/14 1733 ? Received: 07/04/14 1811 Source: BLOOD ? Started: 07/04/141926 ?1OF2 [facility] ? PRELIMINARY REPORT ?07/05/141999 ? NO GROWTH AT 1 DAY BLOOD CULTURE ? Collected: 07/04/14 1740 ? Received: 07/04/14 1811 Source: BLOOD ? Started: 07/04/141927 ?2OF2 [facility] 662 ? PRELIMINARY REPORT ?07/05/141999 ? NO GROWTH AT 1 DAY ? MICRO - URINE URINE CULTURE ? Collected: 07/04/14 1745 ? Received: 07/04/14 180 Source: CLEAN CATCH URINE ? Started: 07/04/14 183 ? PRELIMINARY REPORT ?07/05/1439 ? NO GROWTH ?? END OF CHART ? Page: ?? 4 us Historical Provider MD LAB BLOOD ORDERABLES Jessica l Result HISTORICAL RESULTS documented in this encounter Visit Diagnoses Diagnosis Essential hypertension Unspecified essential hypertension Type 2 or unspecified type diabetes mellitus Other and unspecified hyperlipidemia documented in this encounter Care Teams Pin Drafter Relationship Specialty Start Date End Date Clayton Helms MD [address] [place] [address] PCP - General 09/30/12 09/26/16 documented as of this encounter
--- OUTSIDE RECORDS SUMMARY | 2024-07-11 22:43 | XMS_ITS | Encounter Summary ---
Author Organization [facility] Healthcare Address [address] [place] [address] Care Team Providers Care Lead Software Development Engineer Name Role Phone Clayton Helms MD Primary Care Provider + Encounter Details Date Type Department Care Team (Late st Contact Info) Description 07/25/2014 8:11 AM HONEY EXTRACTOR - 07/25/2014 11:59 PM [facility] Hospital Encounter [facility] Clayton Wyman MD [address] [place] [address] Enlarged lymph nodes; Nonspecific (abnormal) findings on radiological and other examination of lung field; Other chronic nonalcoholic liver disease; Disease of spleen Social History Tobacco Use Types Packs/Day Years Used Date Smoking Tobacco: Never Alcohol Use Standard Drinks/Week Comments Yes 0 (1 standard drink = 0.6 oz pur e alcohol) Comments Unknown Sex and Gender Information Value Date Recorded Sex Assigned at Not on file Legal Sex Female 11:52 PM HONEY EXTRACTOR Gender Identity Not on file Sexual Orientation Not on file documented as of this encounter Medications at Time of Discharge blood-glucose meter (CONTOUR NEXT USB METER) [facility] [place] directed 1 each 0 07/04/2014 [...] Name Priority Date/Time Associated Diagnosis Comments CT CHEST W CONTRAST Routine 07/25/2014 1 0:09 AM HONEY EXTRACTOR BLOOD CREATININE Routine 07/25/2014 8:22 AM HONEY EXTRACTOR DISCHARGE LABORATORY CUMULATIVE REPORT Routine 07/25/2014 12:00 AM HONEY EXTRACTOR documented in this encounter Results * CT Chest W Contrast (07/25/2014 10:09 AM HONEY EXTRACTOR) Anatomical Region Laterality Modality Body N/A Computed Tomogra phy 07/25/2014 10:0 9 AM HONEY EXTRACTOR Narrative 07/25/2014 3:[address] Chest/Abd/Pel W ??[id number] ??Acc#: ??[id number] DATE OF EXAM: ??Jul 25 2014 CLINICAL HISTORY: Fever of unknown origin. ??Nausea. CHEST CT RESULT: Serial transaxial images of the chest obtained with 100 ml Optiray 320. The thoracic aorta is normal in caliber. ??There is no pericardial or pleural effusion. ??Heart size is normal. There is a mild to moderate degree of atelectasis posteriorly in the right lower lobe, but there is no dense pulmonary consolidation identified in either lung. There is mild nonspecific right hilar lymphadenopathy. ??No left hilar adenopathy or mediastinal adenopathy is seen. On axial image 16 and coronal image 77 there is a nonspecific, noncalcified 9 mm nodule associated with the major fissure and another noncalcified nodule on axial image 25 and coronal image 61 in the right lung also associated with the fissure measuring approximately 6 mm. ??In the left midchest on axial image 23 and coronal image 68 there is ??a noncalcified peripheral 6 mm nodule. 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 There are a few epicardial subcentimeter lymph nodes which were also seen on the previous CT from 2005. IMPRESSION: 1. MILD NONSPECIFIC RIGHT HILAR LYMPHADENOPATHY. 2. TWO RIGHT AND ONE LEFT SIDED NONCALCIFIED NONSPECIFIC SUBCENTIMETER PULMONARY NODULES DESCRIBED ABOVE. ??SUGGEST REEVALUATION WITH CHEST CT IN 3 MONTHS. 3. NO DENSE LUNG CONSOLIDATION OR PLEURAL OR PERICARDIAL EFFUSION. ABDOMEN AND PELVIS CT REPORT: Serial axial images of the abdomen and pelvis obtained with oral contrast and 100 ml Optiray 320 and correlated to a previous CT of the abdomen and pelvis from 03/10/06. There is a normal caliber abdominal aorta with moderate calcification seen within it distally. ??There is diffuse fatty infiltration of the liver but no focal hepatic lesions are seen. ??Gallbladder is normal with no stones. ??There is mild fatty infiltration of the pancreas that otherwise appears normal. ??Both adrenal glands are normal. ??There are a couple small right renal cysts, the largest 1 cm at the superior pole of the right kidney, otherwise the kidneys appear normal. Spleen size appears normal, but there are low density lesions identified in the spleen the largest of which measures 18 mm. ??Differential diagnosis would include infectious/inflammatory processes as well as tumor processes such as lymphoma or in the appropriate clinical setting metastatic lesions. ??There is a small focus of accessory splenic tissue along the medial tip of the spleen as well that is unchanged. There is an enlarged 19 mm retroperitoneal lymph node on axial image 57 to the right of midline, but that is unchanged in size since the CT from 03/10/06. ??There is another enlarged lymph node centrally in the retroperitoneum on axial image 63 measuring 17 mm. ??Previously that particular lymph node was subcentimeter in size. ??No other adenopathy is seen in the abdomen or in the pelvis. There are no dilated loops of small or large bowel or inflammatory bowel changes seen. The uterus appears normal in size. ??No adnexal mass is seen. There is mild to moderate osteoarthritic changes of the lumbar spine. CONCLUSION: 1. DIFFUSE FATTY INFILTRATION OF THE LIVER. 2. TWO MILDLY ENLARGED RETROPERITONEAL LYMPH NODES, ONE TO THE RIGHT OF MIDLINE UNCHANGED IN SIZE SINCE THE 03/10/06 STUDY BUT THE OTHER HAS INCREASED IN SIZE SINCE THE PRIOR STUDY WHEN IT WAS SUBCENTIMETER IN MAXIMAL DIMENSION. 3. SEVERAL LOW DENSITY LESIONS ARE NOW SEEN WITHIN THE SPLEEN, THE LARGEST 18 MM. ??THESE ARE NONSPECIFIC AND COULD BE A MANIFESTATION OF INFECTIOUS OR INFLAMMATORY PROCESS WITHIN THE SPLEEN. ??ALTERNATIVELY TUMOR INVOLVEMENT IN THE SPLEEN ??SUCH LYMPHOMA OR METASTATIC DISEASE WOULD NEED TO BE INCLUDED IN THE DIFFERENTIAL DIAGNOSIS. ??THERE ARE NO PARASPLENIC FLUID COLLECTIONS. Interpreting Physician: ??DELMY COOPER M.D. ??Read on: ??Jul 25 2014 11:04A Transcribed by: ??lidia ??On: Jul 25 2014 ??2:57P Approved Electronically by: ??DELMY COOPER M.D. ??on: ??Jul 25 2014 ??3:24P Ordering DR: DR CLAYTON HELMS Attending DR: DR CLAYTON HELMS Procedure Note Provider, MD Sofiya - 11/07/2016 CT Chest/Abd/Pel W [id number] Acc#: [id number] DATE OF EXAM: Jul 25 2014 CLINICAL HISTORY: Fever of unknown origin. Nausea. CHEST CT RESULT: Serial transaxial images of the chest obtained with 100 ml Optiray 320.The thoracic aorta is normal in caliber. There is no pericardial orpleural effusion. Heart size is normal. There is a mild to moderatedegree of atelectasis posteriorly in the right lower lobe, but there is nodense pulmonary consolidation identified in either lung. There is mildnonspecific right hilar lymphadenopathy. No left hilar adenopathy ormediastinal adenopathy is seen. On axial image 16 and coronal image 77there is a nonspecific, noncalcified 9 mm nodule associated with the majorfissure and another noncalcified nodule on axial image 25 and coronalimage 61 in the right lung also associated with the fissure measuringapproximately 6 mm. In the left midchest on axial image 23 and coronalimage 68 there is a noncalcified peripheral 6 mm nodule. There ismoderate degenerative osteoarthritis of the thoracic spine. There are afew epicardial subcentimeter lymph nodes which were also seen on the previous CT from 2005. IMPRESSION: 1. MILD NONSPECIFIC RIGHT HILAR LYMPHADENOPATHY. 2. TWO RIGHT AND ONE LEFT SIDED NONCALCIFIED NONSPECIFIC SUBCENTIMETERPULMONARY NODULES DESCRIBED ABOVE. SUGGEST REEVALUATION WITH CHEST CTIN 3 MONTHS. 3. NO DENSE LUNG CONSOLIDATION OR PLEURAL OR PERICARDIAL EFFUSION. ABDOMENAND PELVIS CT REPORT: Serial axial images of the abdomen and pelvis obtained with oral contrastand 100 ml Optiray 320 and correlated to a previous CT of the abdomen andpelvis from 03/10/06. There is a normal caliber abdominal aorta withmoderate calcification seen within it distally. There is diffuse fattyinfiltration of the liver but no focal hepatic lesions are seen.Gallbladder is normal with no stones. There is mild fatty infiltration ofthe pancreas that otherwise appears normal. Both adrenal glands arenormal. There are a couple small right renal cysts, the largest 1 cm atthe superior pole of the right kidney, otherwise the kidneys appearnormal. Spleen size appears normal, but there are low density lesionsidentified in the spleen the largest of which measures 18 mm.Differential diagnosis would include infectious/inflammatory processes aswell as tumor processes such as lymphoma or in the appropriate clinicalsetting metastatic lesions. There is a small focus of accessory splenictissue along the medial tip of the spleen as well that is unchanged. There is anenlarged 19 mm retroperitoneal lymph node on axial image 57 to the rightof midline, but that is unchanged in size since the CT from 03/10/06.There is another enlarged lymph node centrally in the retroperitoneum onaxial image 63 measuring 17 mm. Previously that particular lymph node wassubcentimeter in size. No other adenopathy is seen in the abdomen or inthe pelvis. There are no dilated loops of small or large bowel orinflammatory bowel changes seen. The uterus appears normal in size. Noadnexal mass is seen. There is mild to moderate osteoarthritic changes ofthe lumbar spine. CONCLUSION: 1. DIFFUSE FATTY INFILTRATION OF THE LIVER. 2. TWO MILDLY ENLARGED RETROPERITONEAL LYMPH NODES, ONE TO THE RIGHT OFMIDLINE UNCHANGED IN SIZE SINCE THE 03/10/06 STUDY BUT THE OTHER HASINCREASED IN SIZE SINCE THE PRIOR STUDY WHEN IT WAS SUBCENTIMETER INMAXIMAL DIMENSION. 3. SEVERAL LOW DENSITY LESIONS ARE NOW SEEN WITHIN THE SPLEEN, THE [id number] MM. THESE ARE NONSPECIFIC AND COULD BE A MANIFESTATION OF INFECTIOUSOR INFLAMMATORY PROCESS WITHIN THE SPLEEN. ALTERNATIVELY TUMORINVOLVEMENT IN THE SPLEEN SUCH LYMPHOMA OR METASTATIC DISEASE WOULDNEED TO BE INCLUDED IN THE DIFFERENTIAL DIAGNOSIS. THERE ARE NOPARASPLENIC FLUID COLLECTIONS. Interpreting Physician: DELMY COOPER M.D. Read on: Jul 25 2014 11:04A Transcribed by: lidia On: Jul 25 2014 2:57P Approved Electronically by: DELMY COOPER M.D. on: Jul 25 2014 3:24P Ordering DR: DR CLAYTON HELMS Attending DR: DR CLAYTON HELMS us Historical Provider MD [facility]ZO CT PROCEDURES Final R esult * Blood creatinine (07/25/2014 8:22 AM HONEY EXTRACTOR) Creatinine 1.03 0.60 - 1.30 mg/dl HISTORICAL RESULTS Blood specimen (specimen) 07/25/2014 8:22 AM HONEY EXTRACTOR us Clayton Helms MD LAB BLOOD ORDERABLES Fin al Result HISTORICAL RESULTS * Discharge Laboratory Cumulative Report (07/25/2014 12:00 AM HONEY EXTRACTOR) 07/25/2014 Narrative HISTORICAL RESULTS - 07/27/2014 12:39 AM HONEY EXTRACTOR Patient No: [id number] ? [facility] Patient Name: SUSANA RENTERIA ?[facility] Healthcare Age: 64 YRS ?: 1950 ?Sex:F ?[address] )[phone] ?? Adm Dt: 07/25/2014 ?[place], [place] ??[address] Created: 07/27/2014 ??0039 ?? Pt. Type: R ? Discharge Dt: 07/25/2014 ? Pathologists: Radha Simms MD Admit Attend Dr: ALEXEY HELMS MD ? GENERAL CHEMISTRY ?Collection Date: ?07/25/14 ?Collection Time: ?821 ? Ref Range: ?? Units: [0.60-1.30] ??MG/DL ?CREATININE ?1.03 ?? END OF CHART ? Page: ?? 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
--- OUTSIDE RECORDS SUMMARY | 2024-07-11 22:43 | XMS_ITS | Encounter Summary ---
Author Organization [facility] Healthcare Address [address] [place] [address] Care Team Providers Care Literary Agent Name Role Phone Clayton Sandoval MD Primary Care Provider + Encounter Details Date Type Department Care Team (Late st Contact Info) Description 09/22/2010 12:01 AM RN APPEALS - 09/22/2010 11:59 PM RN APPEALS Hospital Encounter [facility] Miguel Ángel Dukes MD [address] [place] [address] DR RODRIGUEZ B [address] [address] Other screening mammogram Social History Tobacco Use Types Packs/Day Years Used Date Smoking Tobacco: Never Alcohol Use Standard Drinks/Week Comments No 0 (1 standard drink = 0.6 oz pur e alcohol) Comments Unknown Sex and Gender Information Value Date Recorded Sex Assigned at Not on file Legal Sex Female 11:52 PM RN APPEALS Gender Identity Not on file Sexual Orientation Not on file documented as of this encounter Medications at Time of Discharge calcium carbonate-vitamin D3 500 mg(1,250mg) -400 unit tablet Take one by mouth two times per day 0 0 08/10/2007 04/14/2024 simvastatin (ZOCOR) 40 mg tablet take 1/2 Tablet by ORAL route every day in the evening 11 06/28/2010 12/27/2016 simvastatin (ZOCOR) 40 mg tablet TAKE ONE TABLET BY MOUTH EVERY EVENING 156 11 06/28/2010 03/31/2017 documented as of this encounter Plan of Treatment Not on file documented as of this encounter Visit Diagnoses Diagnosis Other screening mammogram documented in this encounter Care Teams Literary Agent Relationship Specialty Start Date End Date Clayton Sandoval MD [address] [place] [address] PCP - General 09/24/07 09/29/12 documented as of this encounter
--- OUTSIDE RECORDS SUMMARY | 2024-07-11 22:43 | XMS_ITS | Encounter Summary ---
Author Organization [facility] Healthcare Address [address] [place] [address] Care Team Providers Care Security Systems Integrator Name Role Phone Clayton Sandoval MD Primary Care Provider + Encounter Details Date Type Department Care Team (Late st Contact Info) Description 02/09/2014 7:02 AM CDT - 02/09/2014 11:59 PM T Hospital Encounter [facility] Clayton Wyman MD [address] [place] [address] Type 2 or unspecified type diabetes mellitus Social History Tobacco Use Types Packs/Day Years Used Date Smoking Tobacco: Never Alcohol Use Standard Drinks/Week Comments Yes 0 (1 standard drink = 0.6 oz pur e alcohol) Comments Unknown Sex and Gender Information Value Date Recorded Sex Assigned at Not on file Legal Sex Female 11:52 PM MECHANICAL LABORATORY TECHNICIAN Gender Identity Not on file Sexual Orientation Not on file documented as of this encounter Medications at Time of Discharge calcium carbonate-vitam in D3 500 mg(1,250mg) -400 unit tablet Take one by mouth two times per day 0 0 08/10/2007 4 fluticasone (FLONASE) 50 mcg/actuation nasal spray inhale 2 spray by Intranasal route every day in each nostril 0 05/26/2012 0 gabapentin (NEURONTIN) 300 mg capsule take 1 capsule (300MG) by ORAL route 3 times every day 0 07/02/2012 7 insulin lispro (HumaLOG KwikPen) 100 unit/mL insulin pen 30U with meals 30 Syringe 11 04/01/2012 7 insulin lispro (HumaLOG KwikPen) 100 unit/mL insulin pen INJECT UP TO 30 UNITS SUBCUTANEOUSLY THREE TIMES A DAY BEFORE MEALS 30 Syringe 04/01/2012 7 irbesartan-hydr oCHLOROthiazide (AVALIDE) 300-12.5 mg per tablet TAKE ONE TABLET BY MOUTH ONCE DAILY 90 3 08/18/2013 0 irbesartan-hydr oCHLOROthiazide (AVALIDE) 300-12.5 mg per tablet TAKE ONE TABLET BY MOUTH ONCE DAILY 90 3 08/18/2013 7 pen needle, diabetic (NOVOFINE 32) 32 [...] this encounter Visit Diagnoses Diagnosis Type 2 or unspecified type diabetes mellitus documented in this encounter Care Teams Security Systems Integrator Relationship Specialty Start Date End Date Clayton Sandoval MD [address] [place] [address] PCP - General 09/30/12 09/26/16 documented as of this encounter
--- OUTSIDE RECORDS SUMMARY | 2024-07-11 22:43 | XMS_ITS | Encounter Summary ---
Author Organization [facility] Healthcare Address [address] [place] [address] Care Team Providers Care Circuit Breaker Mechanic Name Role Phone Clayton Sandoval MD Primary Care Provider + Encounter Details Date Type Department Care Team (Late st Contact Info) Description 12/26/2011 10:48 AM CDT - 12/26/2011 11:59 PM T Hospital Encounter [facility] Clayton Wyman MD [address] [place] [address] Localized osteoarthrosis, ankle and foot Social History Tobacco Use Types Packs/Day Years Used Date Smoking Tobacco: Never Alcohol Use Standard Drinks/Week Comments No 0 (1 standard drink = 0.6 oz pur e alcohol) Comments Unknown Sex and Gender Information Value Date Recorded Sex Assigned at Not on file Legal Sex Female 11:52 PM RETAIL PERSONAL BANKER Gender Identity Not on file Sexual Orientation Not on file documented as of this encounter Medications at Time of Discharge calcium carbonate-vitami n D3 500 mg(1,250mg) -400 unit tablet Take one by mouth two times per day 0 0 08/10/2007 04/14/2024 pen needle, diabetic (NOVOFINE 32) 32 gauge x 1/4 needle USE 8 TIMES A DAY OR DIRECTED 240 each 11 11/26/2010 12/23/2016 simvastatin (ZOCOR) 40 mg tablet take 1/2 Tablet by ORAL route every day in the evening 06/28/2010 12/27/2016 simvastatin (ZOCOR) 40 mg tablet TAKE ONE TABLET BY MOUTH EVERY EVENING 156 11 06/28/2010 03/31/2017 documented as of this encounter Plan of Treatment Not on file documented as of this encounter Visit Diagnoses Diagnosis Localized osteoarthrosis, ankle and foot Localized osteoarthrosis not specified whether primary or secondary, ankle and foot documented in this encounter Care Teams Circuit Breaker Mechanic Relationship Specialty Start Date End Date Clayton Sandoval MD [address] [place] [address] PCP - General 09/24/07 09/29/12 documented as of this encounter
--- OUTSIDE RECORDS SUMMARY | 2024-07-11 22:43 | XMS_ITS | Encounter Summary ---
Author Organization [facility] Healthcare Address [address] [place] [address] Care Team Providers Care Traveling Buyer Name Role Phone Clayton Sandoval MD Primary Care Provider + Encounter Details Date Type Department Care Team (Late st Contact Info) Description 07/24/2011 11:16 AM FINE CRAFT ARTIST - 07/24/2011 11:59 PM FINE CRAFT ARTIST Hospital Encounter [facility] [place], [place] [address] [facility] [address] [place] [address] Sarcoidosis Social History Tobacco Use Types Packs/Day Years Used Date Smoking Tobacco: Never Alcohol Use Standard Drinks/Week Comments No 0 (1 standard drink = 0.6 oz pur e alcohol) Comments Unknown Sex and Gender Information Value Date Recorded Sex Assigned at Not on file Legal Sex Female 11:52 PM FINE CRAFT ARTIST Gender Identity Not on file Sexual Orientation Not on file documented as of this encounter Medications at Time of Discharge calcium carbonate-vitami n D3 500 mg(1,250mg) -400 unit tablet Take one by mouth two times per day 0 0 08/10/2007 04/14/2024 pen needle, diabetic (NOVOFINE 32) 32 gauge x 1/4 needle USE 8 TIMES A DAY OR DIRECTED 240 each 11/26/2010 12/23/2016 simvastatin (ZOCOR) 40 mg tablet take 1/2 Tablet by ORAL route every day in the evening 06/28/2010 12/27/2016 simvastatin (ZOCOR) 40 mg tablet TAKE ONE TABLET BY MOUTH EVERY EVENING 156 11 06/28/2010 03/31/2017 documented as of this encounter Plan of Treatment Not on file documented as of this encounter Visit Diagnoses Diagnosis Sarcoidosis documented in this encounter Care Teams Traveling Buyer Relationship Specialty Start Date End Date Clayton Sandoval MD [address] [place] [address] PCP - General 09/24/07 09/29/12 documented as of this encounter
--- OUTSIDE RECORDS SUMMARY | 2024-07-11 22:43 | XMS_ITS | Encounter Summary ---
Author Organization [facility] Healthcare Address [address] [place] [address] Care Team Providers Care Supreme Court Judge Name Role Phone Clayton Sandoval MD Primary Care Provider + Encounter Details Date Type Department Care Team (Latest Contact Info) Description 09/15/2013 7:01 AM DISTRIBUTING CLERK - 09/15/2013 9:30 AM DISTRIBUTING CLERK Hospital Encounter [facility] MARILY Adames, Jennifer Latif Special screening for malignant neoplasms, colon; Benign neoplasm of colon; Internal hemorrhoids; Family history of malignant neoplasm of gastrointestinal tract; History of colonic polyps Social History Tobacco Use Types Packs/Day Years Used Date Smoking Tobacco: Never Alcohol Use Standard Drinks/Week Comments Yes 0 (1 standard drink = 0.6 oz pur e alcohol) Comments Unknown Sex and Gender Information Value Date Recorded Sex Assigned at Not on file Legal Sex Female 11:52 PM DISTRIBUTING CLERK Gender Identity Not on file Sexual [...] Priority Date/Time Associated Diagnosis Comments SURGICAL PATHOLOGY REPORT Routine 09/15/2013 11:40 AM DISTRIBUTING CLERK DISCHARGE LABORATORY CUMULATIVE REPORT Routine 09/15/2013 12:00 AM DISTRIBUTING CLERK documented in this encounter Results * Surgical Pathology Report (09/15/2013 11:40 AM DISTRIBUTING CLERK) 09/15/2013 11:4 0 AM DISTRIBUTING CLERK Narrative HISTORICAL RESULTS - 09/16/2013 2:30 PM DISTRIBUTING CLERK [facility] Patient No: [id number] Patient Name: SUSANA RENTERIA Age: 63 YRS ?? : 1950 Admit Phys: JENNIFER ADAMES MD Case #: [id number] ? Date: 09/15/13 SPECIMEN SOURCE: ? 3 polyps right colon. CLINICAL INFORMATION AND IMPRESSION: ? History polyps/nodules right colon. Colonoscopy. GROSS DESCRIPTION: ? The specimen is submitted in one container labeled Susana Pitts ? Renteria and right colon. It is submitted in formalin and ? consists of multiple fragments of myers soft tissue that range ? between 0.2 and 0.3 cm in maximum dimensions. ??All submitted ? in one cassette. ?SR/as/lm MICROSCOPIC DESCRIPTION: ? Microscopic examination shows a total of 6 fragments of ? adenomatous epithelium. ??There is no malignancy seen. ?? CAYLA/lm DIAGNOSIS: ? LARGE INTESTINE, RIGHT COLON, ENDOSCOPIC BIOPSY: ? -FRAGMENTS OF ADENOMATOUS POLYPS ? -NO HIGH-GRADE DYSPLASIA OR MALIGNANCY SEEN ? [id number], [id number], [id number], [id number], [id number] ? Pathologist: JAMAL LYON M.D. ??Electronic ?signature ? JKD JKD/LM 09/16/13 us Historical Provider MD LAB PATHOLOGY ORDERABLES Final Result HISTORICAL RESULTS * Discharge Laboratory Cumulative Report (09/15/2013 12:00 AM DISTRIBUTING CLERK) 09/15/2013 Narrative HISTORICAL RESULTS - 09/17/2013 12:35 AM DISTRIBUTING CLERK Patient No: [id number] ? [facility] Patient Name: SUSANA RENTERIA ?[facility] Age: 63 YRS ?: 1950 ?Sex:F ?[address] )[id number] ?? Adm Dt: 09/15/2013 ?[place], [place] ??[address] Created: 09/17/2013 ??0035 ?? Pt. Type: U ? Discharge Dt: 09/15/2013 ? Pathologists: Radha Simms MD Admit Dr. Rae Dr: JENNIFER ADAMES MD ?S [facility] ?P A T H O L O G Y ?R E P O R T ? Case #: [id number] ? Date: 09/15/13 SPECIMEN SOURCE: ? 3 polyps right colon. CLINICAL INFORMATION AND IMPRESSION: ? History polyps/nodules right colon. Colonoscopy. GROSS DESCRIPTION: ? The specimen is submitted in one container labeled Susana Renteria and right ? colon. It is submitted in formalin and consists of multiple fragments of myers ? soft tissue that range between 0.2 and 0.3 cm in maximum dimensions. ??All ? submitted in one cassette. ?SR/as/lm MICROSCOPIC DESCRIPTION: ? Microscopic examination shows a total of 6 fragments of adenomatous ? epithelium. ??There is no malignancy seen. ?? CAYLA/lm DIAGNOSIS: ? LARGE INTESTINE, RIGHT COLON, ENDOSCOPIC BIOPSY: ? -FRAGMENTS OF ADENOMATOUS POLYPS ? -NO HIGH-GRADE DYSPLASIA OR MALIGNANCY SEEN ? [id number], [id number], [id number], [id number], [id number] ? Pathologist: JAMAL LYON M.D. ??Electronic ?signature ? JKD JKD/LM 09/16/13 ?? END OF CHART ? Page: ?? 1 us Historical Provider MD LAB BLOOD ORDERABLES Jessica reynolds Result HISTORICAL RESULTS documented in this encounter Visit Diagnoses Diagnosis Special screening for malignant neoplasms, colon Benign neoplasm of colon Internal hemorrhoids Internal hemorrhoids without mention of complication Family history of malignant neoplasm of gastrointestinal tract History of colonic polyps Personal history of colonic polyps documented in this encounter Care Teams Supreme Court Judge Relationship Specialty Start Date End Date Clayton Sandoval MD [address] [place] [address] PCP - General 09/30/12 09/26/16 documented as of this encounter
--- OUTSIDE RECORDS SUMMARY | 2024-07-11 22:43 | XMS_ITS | Encounter Summary ---
Author Organization [facility] Healthcare Address [address] [place] [address] Care Team Providers Care Biomedical Engineering Supervisor Name Role Phone Clayton Sandoval MD Primary Care Provider + Encounter Details Date Type Department Care Team (Late st Contact Info) Description 01/16/2011 12:01 AM CDT - 01/16/2011 11:59 PM T Hospital [place]counter [place] [address] [facility] [address] [place] [address] Sarcoidosis Social History Tobacco Use Types Packs/Day Years Used Date Smoking Tobacco: Never Alcohol Use Standard Drinks/Week Comments No 0 (1 standard drink = 0.6 oz pur e alcohol) Comments Unknown Sex and Gender Information Value Date Recorded Sex Assigned at Not on file 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
--- OUTSIDE RECORDS SUMMARY | 2024-07-11 22:43 | XMS_ITS | Encounter Summary ---
Author Organization [facility] Healthcare Address [address] [place] [address] Care Team Providers Care Oil Spot Washer Name Role Phone Clayton Sandoval MD Primary Care Provider + Encounter Details Date Type Department Care Team (Late st Contact Info) Description 08/30/2014 12:25 PM PRIMARY CARE COORDINATOR - 08/30/2014 11:59 PM PRIMARY CARE COORDINATOR Hospital Encounter [facility] CLINCONV Delmy Umana MD [address] [address] Fever due to unspecified condition Social History Tobacco Use Types Packs/Day Years Used Date Smoking Tobacco: Never Alcohol Use Standard Drinks/Week Comments Yes 0 (1 standard drink = 0.6 oz pur e alcohol) Comments Unknown Sex and Gender Information Value Date Recorded Sex Assigned at Not on file Legal Sex Female 11:52 PM PRIMARY CARE COORDINATOR Gender Identity Not on file Sexual [...] Diagnosis Comments DISCHARGE CUMULATIVE SUMMARY ADDENDUM Routine 09/06/2014 12:41 AM PRIMARY CARE COORDINATOR SERUM SONNY-LABOY VIRUS AB Routine 08/30/2014 12:45 PM PRIMARY CARE COORDINATOR SERUM CYTOMEGALOVIRUS (CMV) AB, IGG, IGM Routine 08/30/2014 12:45 PM PRIMARY CARE COORDINATOR SERUM ANGIOTENSIN-CONVERTING ENZYME (REYNALDO) Routine 08/30/2014 12:45 PM PRIMARY CARE COORDINATOR SERUM HUMAN IMMUNODEFICIENCY VIRUS Routine 08/30/2014 6:45 AM PRIMARY CARE COORDINATOR REFERRED TEST, MISCELLANEOUS Routine 08/30/2014 6:45 AM PRIMARY CARE COORDINATOR REFERRED TEST, MISCELLANEOUS Routine 08/30/2014 6:45 AM PRIMARY CARE COORDINATOR REFERRED TEST, MISCELLANEOUS Routine 08/30/2014 6:45 AM PRIMARY CARE COORDINATOR REFERRED TEST, MISCELLANEOUS Routine 08/30/2014 6:45 AM PRIMARY CARE COORDINATOR REFERRED TEST, MISCELLANEOUS Routine 08/30/2014 6:45 AM PRIMARY CARE COORDINATOR REFERENCE LABORATORY MISCELLANEOUS TESTING 08/30/2014 REFERENCE LABORATORY MISCELLANEOUS TESTING 08/30/2014 REFERENCE LABORATORY MISCELLANEOUS TESTING 08/30/2014 MICROBIOLOGY SUMMARY Routine 08/30/2014 12:00 AM PRIMARY CARE COORDINATOR DISCHARGE LABORATORY CUMULATIVE REPORT Routine 08/30/2014 12:00 AM PRIMARY CARE COORDINATOR documented in this encounter Results * Discharge Cumulative Summary Addendum (09/06/2014 12:41 AM PRIMARY CARE COORDINATOR) 09/06/2014 12:4 1 AM PRIMARY CARE COORDINATOR Narrative HISTORICAL RESULTS - 09/06/2014 12:41 AM PRIMARY CARE COORDINATOR Patient No: [id number] ? [facility] Patient Name: SUSANA RENTERIA ?[facility] Age: 64 YRS ?: 1950 ?Sex:F ?[address] )[phone] ?? Adm Dt: 08/30/2014 ?[place], [place] ??[address] Created: 09/06/2014 ??0041 ?? Pt. Type: R ? Discharge Dt: 08/30/2014 ? Pathologists: Radha Simms MD Admit Attend Dr: DELMY UMANA MD ?MISCELLANEOUS REFERENCE LAB ? Units: ??ANGIO CONV ENZY @ ? 02/17/15 1245 ? SEE REPT ?[facility] ?Collection Date: ?02/17/15 ?Collection Time: ?1245 ? Ref Range: ?? Units: ?[facility] @ ?SEE REPT @ = ANGIO CONV ENZY Performed at ??[facility] ?? [facility], [place] @ = YATES FRIG GO Performed at ??[facility] [place], [place] ?? END OF CHART ? Page: ?? 1 Historical Provider MD LAB MICROBIOLOGY - GENERA L ORDERABLES Final Result Performing Organization Address [facility] de Phone Number HISTORICAL RESULTS * Serum angiotensin-converting enzyme (REYNALDO) (08/30/2014 12:45 PM PRIMARY CARE COORDINATOR) Pathologist [facility] REYNALDO See Report HISTORICA L RESULTS Serum 08/30/2014 12:4 5 PM PRIMARY CARE COORDINATOR Result [facility] Historical Provider MD LAB BLOOD ORDERABLES Jessica l Result Performing Organization Address [facility] de Phone Number HISTORICAL RESULTS * Serum Cytomegalovirus (CMV) ab, IgG, IgM (08/30/2014 12:45 PM PRIMARY CARE COORDINATOR) [facility] CMV ab, IgG, quant Negative Negative HISTORICAL RESULTS CMV ab, IgM, qual Negative Negative HISTORICAL RESULTS Serum 08/30/2014 12:4 5 PM PRIMARY CARE COORDINATOR Result [facility] Provider MD LAB BLOOD ORDERABLES Jessica l Result Performing Organization Address [facility] de Phone Number HISTORICAL RESULTS * Serum Sonny-Laboy virus ab (08/30/2014 12:45 PM PRIMARY CARE COORDINATOR) Pathologist [facility] EBV ab seefn HISTORICAL RESULTS Comment: RESULT: Results suggest past infection. ADDITIONAL INFORMATION In most populations, at least 90% of the adult population will have been infected with EBV sometime in the past and therefore, will be positive for anti-VCA/IgG and anti- EBNA. Antibodies to EBNA develop 6-8 weeks after primary infection and remain present for life. ??Presence of VCA/ IgM antibodies indicates recent primary infection with EBV. EBV viral capsid ab, IgG Positive Negative HISTORICAL RESULTS EBV viral capsid ab, IgM Negative Negative HISTORICAL RESULTS EBV nuclear ab Positive Negative HISTO RICAL RESULTS Serum 08/30/2014 12:4 5 PM PRIMARY CARE COORDINATOR [facility] Provider LAB BLOOD ORDERABLES Jessica l Result Performing Organization Address [facility] Co de Phone Number HISTORICAL RESULTS * Serum Human Immunodeficiency virus [HIV] 1and 2 ag/ab (08/30/2014 6:45 AM PRIMARY CARE COORDINATOR) HIV 1 and 2, ag/ab Negative Negative HISTORICAL RESULTS Serum 08/30/2014 6:45 AM PRIMARY CARE COORDINATOR Narrative HISTORICAL RESULTS - 08/31/2014 5:15 AM PRIMARY CARE COORDINATOR Negative result does not rule out HIV infection. If acute HIV infection is suspected in a high-risk individual, submit plasma specimen for HIV-1 RNA quantification test (HIVQU) and/or HIV-2 DNA/RNA test (FHV2Q). [facility] Provider LAB BLOOD ORDERABLES Jesscia l Result Performing Organization Address [facility] Co de Phone Number HISTORICAL RESULTS * Referred test, miscellaneous (08/30/2014 6:45 AM PRIMARY CARE COORDINATOR) Referral specimen, test result SEEFN HISTORICAL RESULTS Miscellaneous 08/30/2014 6:4 5 AM PRIMARY CARE COORDINATOR Narrative HISTORICAL RESULTS - 09/04/2014 2:25 AM PRIMARY CARE COORDINATOR GOKEY SCOC Test ? Result ? Flag ??Unit ??RefValue Coccidioides Ab, S ??Cocci Complement F ? Negative ? Negative ??Cocci Immunodiffusion-IgG ?Negative ? Negative ??Cocci Immunodiffusion-IgM ?Negative ? Negative ?A negative complement fixation and immunodiffusion (CF/ID) ?result does not exclude the diagnosis of ?coccidioidomycosis. ??Repeat testing by CF/ID in 2-3 weeks ?if clinically indicated. us Historical Provider LAB BLOOD ORDERABLES Jessica reynolds Result HISTORICAL RESULTS * Referred test, miscellaneous (08/30/2014 6:45 AM PRIMARY CARE COORDINATOR) Referral specimen, test result SEEFN HISTORICAL RESULTS Miscellaneous 08/30/2014 6:4 5 AM PRIMARY CARE COORDINATOR Narrative HISTORICAL RESULTS - 09/04/2014 11:25 AM PRIMARY CARE COORDINATOR CHERIE FASP Test ? Result ? Flag ??Unit ??RefValue Aspergillus Antibodies, Serum ??Aspergillus flavus Ab ?NEGATIVE ??Aspergillus niger Ab ? NEGATIVE ??Aspergillus fumigatus Ab ? NEGATIVE ?REFERENCE RANGE: NEGATIVE ?INTERPRETIVE CRITERIA: ? Negative: Antibody not detected ? Positive: Antibody detected ?A positive result is represented by 1 or more ?precipitin bands, and may indicate fungus ball, ?allergic bronchopulmonary aspergillosis (NAT) or ?invasive aspergillosis. ??Generally, the appearance ?of 3-4 bands indicates either fungus ball or NAT. ?Test Performed by: ?[employer] ?[id number] [facility] ?[place] [address] Historical Provider MD LAB BLOOD ORDERABLES Jessica l Result HISTORICAL RESULTS * Referred test, miscellaneous (08/30/2014 6:45 AM PRIMARY CARE COORDINATOR) Referral specimen, test result SEEFN HISTORICAL RESULTS Miscellaneous 08/30/2014 6:4 5 AM PRIMARY CARE COORDINATOR Narrative HISTORICAL RESULTS - 09/01/2014 10:00 AM PRIMARY CARE COORDINATOR CHERIE CONWAY Test ? Result ? Flag ??Unit ??RefValue Histoplasma/Blastomyces Panel, S ??Histoplasma Ab Screen, S ? Negative ? Negative ?A single negative result does not exclude the diagnosis ?of histoplasmosis. ??Repeat testing on a new sample in ?7-14 days if clinically indicated. ??Blastomyces Ab, EIA, S ? Negative ? Negative ?A single negative result does not exclude ?the diagnosis of blastomycosis. ??Repeat ?testing on a new sample in 7-14 days if ?clinically indicated. Historical Provider MD LAB BLOOD ORDERABLES Jessica reynolds Result HISTORICAL RESULTS * Referred test, miscellaneous (08/30/2014 6:45 AM PRIMARY CARE COORDINATOR) Referral specimen, test result SEEFN HISTORICAL RESULTS Miscellaneous 08/30/2014 6:4 5 AM PRIMARY CARE COORDINATOR Narrative HISTORICAL RESULTS - 09/01/2014 4:50 AM PRIMARY CARE COORDINATOR GOKEY TOXOP Test ?Result ? Flag ??Unit ? RefValue Toxoplasma Ab, IgM and IgG, S ??Toxoplasma Ab, IgM, S ? Negative ?Negative ??Toxoplasma IgM Value ?<0.55 ?threshold ? REFERENCE VALUE ?<0.55 (Negative) ?0.55 to <0.65 (Equivocal) ?>=0.65 (Positive) ??Toxoplarma Ab, IgG, S ? Negative ?Negative ??Toxoplasma IgG Value ?<3 ? IU/mL ? REFERENCE VALUE ?<=9 IU/mL (Negative) ?10-11 IU/mL (Equivocal) ?>=12 IU/mL (Positive) Result [facility] Provider MD LAB BLOOD ORDERABLES Jessica l Result HISTORICAL RESULTS * Referred test, miscellaneous (08/30/2014 6:45 AM PRIMARY CARE COORDINATOR) Referral specimen, test result See Report HISTORICAL RESULTS Miscellaneous 08/30/2014 6:4 5 AM PRIMARY CARE COORDINATOR Narrative HISTORICAL RESULTS - 09/05/2014 4:09 AM PRIMARY CARE COORDINATOR CHERIE QTBG Result [facility] Provider MD LAB BLOOD ORDERABLES Jessica l Result Performing Organization Address [facility] Co de Phone Number HISTORICAL RESULTS * REFERENCE LABORATORY MISCELLANEOUS TESTING (08/30/2014) Narrative 08/30/2014 Ordered by an unspecified provider. Result [facility] Provider MD LAB BLOOD ORDERABLES Jessica l Result * REFERENCE LABORATORY MISCELLANEOUS TESTING (08/30/2014) Narrative 08/30/2014 Ordered by an unspecified provider. Result [facility] Provider MD LAB BLOOD ORDERABLES Jessica l Result * REFERENCE LABORATORY MISCELLANEOUS TESTING (08/30/2014) Narrative 08/30/2014 Ordered by an unspecified provider. Result [facility] Provider MD LAB BLOOD ORDERABLES Jessica l Result * Microbiology Summary (08/30/2014 12:00 AM PRIMARY CARE COORDINATOR) 08/30/2014 Narrative HISTORICAL RESULTS - 09/05/2014 12:50 AM PRIMARY CARE COORDINATOR ? [facility] ?CLINICAL LABORATORIES ? MICROBIOLOGY REPORT PATIENT NAME: ??SUSANA RENTERIA ?MED RECORD#: ??[id number] BIRTHDATE: ??1950 ?? AGE: ??64 YRS SEX: F ?PATIENT#: ? [id number] ADMITTING DR: ??DELMY UMANA MD ? ATTENDING DR: ??DELMY UMANA MD ?ACCESSION#: ?? [id number] CREATED: ??09/05/14 ?? 0039 ? ADMIT DATE: ?? 08/30/14 ? MICRO - BLOOD BLOOD CULTURE ? Collected: 08/30/14 1245 ? Received: 08/30/14 1322 Source: BLOOD ? Started: //15 1347 ?1OF2 RAC [id number] ?02/18/15 2000 ? NO GROWTH AT 1 DAY ?//15 2000 ? NO GROWTH AT 5 DAYS BLOOD CULTURE ? Collected: 08/30/15 1252 ? Received: 08/30/ 1322 Source: BLOOD ? Started: //15 1347 ?2OF2 LAC [id number] ?02/18/15 2000 ? NO GROWTH AT 1 DAY ?02/22/15 2000 ? NO GROWTH AT 5 DAYS ?PENDING ORDERS [id number] ??08/31/14 0728 YATES REFRIG GENERIC ORDERABLE ??RECVD CHERIE [facility] [phone] ??08/30/14 1306 ANGIOTENSIN CONVERTING ENZYME ??RECVD ?? END OF CHART us Historical Provider MD LAB MICROBIOLOGY - GENERA L ORDERABLES Final Result HISTORICAL RESULTS * Discharge Laboratory Cumulative Report (08/30/2014 12:00 AM PRIMARY CARE COORDINATOR) 08/30/2014 Narrative HISTORICAL RESULTS - 09/01/2014 12:40 AM PRIMARY CARE COORDINATOR Patient No: [id number] ? [facility] Patient Name: SUSANA RENTERIA ?[facility] Age: 64 YRS ?: 1950 ?Sex:F ?[address] )[phone] ?? Adm Dt: 08/30/2014 ?[place] ??[id number] Created: 09/01/2014 ??0040 ?? Pt. Type: R ? Discharge Dt: 08/30/2014 ? Pathologists: Radha Simms MD Admit Attend Dr: DELMY UMANA MD ? MICRO - BLOOD BLOOD CULTURE ? Collected: 08/30/14 1245 ? Received: 08/30/14 1322 Source: BLOOD ? Started: 08/30/147 ?1OF2 [facility] [id number] ? PRELIMINARY REPORT ?08/31/141999 ? NO GROWTH AT 1 DAY BLOOD CULTURE ? Collected: 08/30/14 1252 ? Received: 08/30/14 1322 Source: BLOOD ? Started: 08/30/141346 ?2OF2 [facility] [id number] ? PRELIMINARY REPORT ?08/31/141999 ? NO GROWTH AT 1 DAY ?[facility] ?Collection Date: ?08/30/14 ?Collection Time: ?1245 ? Ref Range: ?? Units: [Negative] ?CMV AB IGM @ ?Negative @ = CMV AB IGM Performed at ??[place], [place] ?? CONTINUED ?Page: ?? 1 Patient No: [id number] ? [facility] Patient Name: RENTERIA, TANIA ?[facility] Age: 64 YRS ?: 1950 ?Sex:F ?[address] )[phone] ?? Adm Dt: 08/30/2014 ?[place], [place] ??[address] Created: 09/01/2014 ??0040 ?? Pt. Type: R ? Discharge Dt: 08/30/2014 ? Pathologists: Radha Simms MD Admit Dr. Rae Dr: DELMY UMANA MD ?[facility] ?Collection Date: ?08/30/14 ?Collection Time: ?1245 ? Ref Range: ?? Units: ? SONNY-LABOY VIRUS ANTIBODIES, SERUM ?EBV AB SER @ ?see fn f [Negative] ?VCA AB IGG @ ?Positive [Negative] ?VCA AB IGM @ ?Negative [Negative] ?EB NUC AG AB @ ?Positive [Negative] ?CMV AB IGG @ ?Negative [Negative] ?HIV AG AB SCR @ ? Negative f Footnotes and Symbols: f = Footnote @ = EBV AB SER, VCA AB IGG, VCA AB IGM, EB NUC AG AB, CMV AB IGG, HIV AG AB SCR ?Performed at ??[place], [place] EBV AB SER..... 08/30/14 1245 RESULT: Results suggest past infection. ADDITIONAL INFORMATION In most populations, at least 90% of the adult population will have been infected with EBV sometime in the past and therefore, will be positive for anti-VCA/IgG and anti- EBNA. Antibodies to EBNA develop 6-8 weeks after primary infection and remain present for life. ??Presence of VCA/ IgM antibodies indicates recent primary infection with EBV. HIV AG AB SCR.. 08/30/14 1245 Negative result does not rule out HIV infection. If acute HIV infection is suspected in a high-risk individual, submit plasma specimen for HIV-1 RNA quantification test (HIVQU) and/or HIV-2 DNA/RNA test (FHV2Q). ?? END OF CHART ? Page: ?? 2 us Historical Provider LAB BLOOD ORDERABLES Jessica reynolds Result HISTORICAL RESULTS documented in this encounter Visit Diagnoses Diagnosis Fever due to unspecified condition documented in this encounter Care Teams Oil Spot Washer Relationship Specialty Start Date End Date Clayton Sandoval MD [address] [place] [address] PCP - General 09/30/12 09/26/16 documented as of this encounter
--- OUTSIDE RECORDS SUMMARY | 2024-07-11 22:43 | XMS_ITS | Encounter Summary ---
Author Organization [facility] Healthcare Address [address] [place] [address] Care Team Providers Care Harnessmaker Name Role Phone Clayton Sandoval MD Primary Care Provider + Encounter Details Date Type Department Care Team (Late st Contact Info) Description 03/24/2015 10:39 AM CDT - 03/24/2015 11:59 PM T Hospital Encounter CH Clayton Wyman MD [address] [facility] [address] [address] Type 2 or unspecified type diabetes mellitus Social History Tobacco Use Types Packs/Day Years Used Date Smoking Tobacco: Never Alcohol Use Standard Drinks/Week Comments Yes 0 (1 standard drink = 0.6 oz pur e alcohol) Comments Unknown Sex and Gender Information Value Date Recorded Sex Assigned at Not on file Legal Sex Female 11:52 PM MIMEOGRAPHER Gender Identity Not on file Sexual Orientation [...] Date/Time Associated Diagnosis Comments URINE MICROBIOLOGY Routine 03/24/2015 12 :00 AM CDT documented in this encounter Results * Urine Microbiology (03/24/2015 12:00 AM CDT) 03/24/2015 Narrative HISTORICAL RESULTS - 03/25/2015 4:[address] [facility] ?Patient Name: ?RAGHU RENTERIA ?Med. Rec#: ?? [id number] ?Pt. Acct.#: ??[id number] ?Birthdate: ?? 1950 ?Age / Sex: ?? 64Y / F ?Location: ?[facility] (Laborato ?Admit Date: ??03/22/2015 ?Discharge Date: ? 03/22/2015 ?Doctor: ?Patient Type: ?CH Ancillary - Insur Culture, Urine ? Collected: 03/24/2015 10:09 Specimen: Urine ?? Specimen Source: Clean Voided Specimen Status: Final ??Last Update: 03/25/2015 11:40 Organism ?? 10,000 - 50,000 cfu/ml of ?? multiple Gram positive organisms Comment ? This culture result is consistent with contamination ?? by normal genital-perineal geovani. us Historical Provider LAB MICROBIOLOGY - GENERA L ORDERABLES Final Result HISTORICAL RESULTS documented in this encounter Visit Diagnoses Diagnosis Type 2 or unspecified type diabetes mellitus documented in this encounter Care Teams Harnessmaker Relationship Specialty Start Date End Date Clayton Sandoval MD [address] [facility] [address] [place] [address] PCP - General 09/30/12 09/26/16 documented as of this encounter
--- OUTSIDE RECORDS SUMMARY | 2024-07-11 22:43 | XMS_ITS | Encounter Summary ---
Author Organization [facility] Healthcare Address [address] [place] [address] Care Team Providers Care Mechanics Handyman Name Role Phone Clayton Sandoval MD Primary Care Provider + Encounter Details Date Type Department Care Team (Late st Contact Info) Description 05/01/2012 10:24 AM CDT - 05/01/2012 11:59 PM T Hospital Encounter [facility] Clayton Wyman MD [address] [address] Augustine Roberts PA [address] [place] [address] [place] [address] Pain in joint, shoulder region Social History Tobacco Use Types Packs/Day Years Used Date Smoking Tobacco: Never Alcohol Use Standard Drinks/Week Comments No 0 (1 standard drink = 0.6 oz pur e alcohol) Comments Unknown Sex and Gender Information Value Date Recorded Sex Assigned at Not on file Legal Sex Female 11:52 PM WOOD GETTER Gender Identity Not on file Sexual Orientation Not on file documented as of this encounter Medications at Time of Discharge calcium carbonate-vitam in D3 500 mg(1,250mg) -400 unit tablet Take one by mouth two times per day 0 0 08/10/2007 4 insulin lispro (HumaLOG KwikPen) 100 unit/mL insulin pen 30U with meals 30 Syringe 11 04/01/2012 7 insulin lispro (HumaLOG KwikPen) 100 unit/mL insulin pen INJECT UP TO 30 UNITS SUBCUTANEOUSLY THREE TIMES A DAY BEFORE MEALS 30 Syringe 04/01/2012 7 pen needle, diabetic (NOVOFINE 32) 32 gauge x 1/4 needle USE 8 TIMES A DAY OR DIRECTED 240 each 11 11/26/2010 7 simvastatin (ZOCOR) 40 mg tablet take 1/2 Tablet by ORAL route every day in the evening 06/28/2010 7 simvastatin (ZOCOR) 40 mg tablet TAKE ONE TABLET BY MOUTH EVERY EVENING 156 11 06/28/2010 7 documented as of this encounter Plan of Treatment Not on file documented as of this encounter Visit Diagnoses Diagnosis Pain in joint, shoulder region documented in this encounter Care Teams Mechanics Handyman Relationship Specialty Start Date End Date Clayton Sandoval MD [address] [place] [address] PCP - General 09/24/07 09/29/12 documented as of this encounter
--- OUTSIDE RECORDS SUMMARY | 2024-07-11 22:43 | XMS_ITS | Encounter Summary ---
Author Organization [facility] Healthcare Address [address] [place] [address] Care Team Providers Care Sheep Clipper Name Role Phone Clayton Sandoval MD Primary Care Provider + Encounter Details Date Type Department Care Team (Late st Contact Info) Description 12/07/2014 7:43 AM CDT - 12/07/2014 11:59 PM CDT Hospital Encounter CH Clayton Wyman MD [address] [place] [address] Type 2 or unspecified type diabetes mellitus; Essential hypertension Social History Tobacco Use Types Packs/Day Years Used Date Smoking Tobacco: Never Alcohol Use Standard Drinks/Week Comments Yes 0 (1 standard drink = 0.6 oz pur e alcohol) Comments Unknown Sex and Gender Information Value Date Recorded Sex Assigned at Not on file Legal Sex Female 11:52 PM CAMP COOK Gender Identity Not on file Sexual [...] 90 3 09/07/2014 7 pen needle, diabetic (NOVOFINE 32) 32 [...] Type 2 or unspecified type diabetes mellitus Essential hypertension Unspecified essential hypertension documented in this encounter Care Teams Sheep Clipper Relationship Specialty Start Date End Date Clayton Sandoval MD [address] [place] [place] [address] PCP - General 09/30/12 09/26/16 documented as of this encounter
--- OUTSIDE RECORDS SUMMARY | 2024-07-11 22:43 | XMS_ITS | Encounter Summary ---
Author Organization [facility] Healthcare Address [address] [place] [address] Care Team Providers Care Supervisor Sewer Maintenance Name Role Phone Clayton Sandoval MD Primary Care Provider + Encounter Details Date Type Department Care Team (Late st Contact Info) Description 05/02/2011 9:00 AM CDT - 05/02/2011 11:59 PM CDT Hospital Encounter [facility] Miguel Ángel Dukes MD [address] [place] [address] [address] [place] [address] Lump or mass in breast; Other follow-up examination Social History Tobacco Use Types Packs/Day Years Used Date Smoking Tobacco: Never Alcohol Use Standard Drinks/Week Comments No 0 (1 standard drink = 0.6 oz pur e alcohol) Comments Unknown Sex and Gender Information Value Date Recorded Sex Assigned at Not on file Legal Sex Female 11:52 PM MEAT PUMPER Gender Identity Not on file Sexual [...] as of this encounter Visit Diagnoses Diagnosis Lump or mass in breast Other follow-up examination documented in this encounter Care Teams Supervisor Sewer Maintenance Relationship Specialty Start Date End Date Clayton Sandoval MD [address] [place] [address] PCP - General 09/24/07 09/29/12 documented as of this encounter
--- OUTSIDE RECORDS SUMMARY | 2024-07-11 22:43 | XMS_ITS | Encounter Summary ---
Author Organization [facility] Healthcare Address [address] [place] [address] Care Team Providers Care Piped Buttonhole Machine Operator Name Role Phone Clayton Sandoval MD Primary Care Provider + Encounter Details Date Type Department Care Team (Late st Contact Info) Description 07/18/2010 11:38 AM AUDIENCE COORDINATOR - 07/18/2010 11:59 PM AUDIENCE COORDINATOR Hospital Encounter [facility] [place] Gab[place], [place] [address] [facility] [address] [place] [address] Shortness of breath Social History Tobacco Use Types Packs/Day Years Used Date Smoking Tobacco: Never Alcohol Use Standard Drinks/Week Comments No 0 (1 standard drink = 0.6 oz pur e alcohol) Comments Unknown Sex and Gender Information Value Date Recorded Sex Assigned at Not on file Legal Sex Female 11:52 PM AUDIENCE COORDINATOR Gender Identity Not on file Sexual [...] as of this encounter Visit Diagnoses Diagnosis Shortness of breath documented in this encounter Care Teams Piped Buttonhole Machine Operator Relationship Specialty Start Date End Date Clayton Sandoval MD [address] [place] [address] PCP - General 09/24/07 09/29/12 documented as of this encounter
--- OUTSIDE RECORDS SUMMARY | 2024-07-11 22:43 | XMS_ITS | Encounter Summary ---
Author Organization [facility] Healthcare Address [address] [place] [address] Care Team Providers Care Sales Manager Name Role Phone Clayton Sandoval MD Primary Care Provider + Encounter Details Date Type Department Care Team (Late st Contact Info) Description 08/15/2011 11:20 PM COMMAND AND CONTROL SYSTEMS INTEGRATOR - 08/15/2011 11:59 PM COMMAND AND CONTROL SYSTEMS INTEGRATOR Hospital Encounter [facility] Miguel Ángel Dukes MD [address] [place] [address] DR RODRIGUEZ B [address] [address] Screening for malignant neoplasm of cervix Social History Tobacco Use Types Packs/Day Years Used Date Smoking Tobacco: Never Alcohol Use Standard Drinks/Week Comments No 0 (1 standard drink = 0.6 oz pur e alcohol) Comments Unknown Sex and Gender Information Value Date Recorded Sex Assigned at Not on file Legal Sex Female 11:52 PM COMMAND AND CONTROL SYSTEMS INTEGRATOR Gender Identity Not on file Sexual Orientation [...] as of this encounter Visit Diagnoses Diagnosis Screening for malignant neoplasm of cervix Screening for malignant neoplasm of the cervix documented in this encounter Care Teams Sales Manager Relationship Specialty Start Date End Date Clayton Sandoval MD [address] [place] [address] PCP - General 09/24/07 09/29/12 documented as of this encounter
--- OUTSIDE RECORDS SUMMARY | 2024-07-11 22:43 | XMS_ITS | Encounter Summary ---
Author Organization [facility] Healthcare Address [address] [place] [address] Care Team Providers Care Thread Checker Name Role Phone Clayton Sandoval MD Primary Care Provider + Encounter Details Date Type Department Care Team (Late st Contact Info) Description 07/05/2010 11:22 AM APPOINTMENT CLERK - 07/05/2010 11:59 PM APPOINTMENT CLERK Hospital Encounter [facility] Social History Tobacco Use Types Packs/Day Years Used Date Smoking Tobacco: Never Alcohol Use Standard Drinks/Week Comments No 0 (1 standard drink = 0.6 oz pur e alcohol) Comments Unknown Sex and Gender Information Value Date Recorded Sex Assigned at Not on file Legal Sex Female 11:52 PM APPOINTMENT CLERK Gender Identity Not on file Sexual [...] on filedocumented in this encounter Care Teams Thread Checker Relationship Specialty Start Date End Date Clayton Sandoval MD [address] [facility] [place] [address] PCP - General 09/24/07 09/29/12 documented as of this encounter
--- OUTSIDE RECORDS SUMMARY | 2024-07-11 22:43 | XMS_ITS | Encounter Summary ---
Author Organization [facility] Healthcare Address [address] [place] [address] Care Team Providers Care Commutator Repairer Name Role Phone Clayton Sandoval MD Primary Care Provider + Encounter Details Date Type Department Care Team (Late st Contact Info) Description 09/29/2013 2:46 PM CDT - 09/29/2013 11:59 PM CDT Hospital Encounter [facility] Ronald Dukes MD [address] [place] [address] DR RODRIGUEZ B [address] [place] [address] Other screening mammogram Social History Tobacco Use Types Packs/Day Years Used Date Smoking Tobacco: Never Alcohol Use Standard Drinks/Week Comments Yes 0 (1 standard drink = 0.6 oz pur e alcohol) Comments Unknown Sex and Gender Information Value Date Recorded Sex Assigned at Not on file Legal Sex Female 11:52 PM 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 ??Previous bilateral breast reduction surgery. Performed by: lst RESULT: Two views of each breast were obtained and correlated to studies dating back through 05/02/11. Post bilateral reduction mammoplasty changes are once again identified. The nipple on the left side is absent. ??There is marked scarring in the retroareolar area on the left with considerable dimpling of the central portion of the left breast as before. ??There is ??considerable fat necrosis with coarse and increased benign appearing calcifications in the central and lateral portion of the right breast. ??No suspicious mass or calcification is seen however to suggest mammographic evidence of malignancy. Digital technology was employed plus computer-aided detection software (R2) was utilized in interpretation of these images. ??This facility utilizes a reminder system to notify patients of yearly mammograms. IMPRESSION: 1. ??NO DEFINITIVE MAMMOGRAPHIC EVIDENCE OF MALIGNANCY. 2. ??ANNUAL FOLLOWUP IS RECOMMENDED. BI-RADS CATEGORY 2 - BENIGN FINDINGS Interpreting Physician: ??DELMY COOPER M.D. ??Read on: ??Sep 29 2013 ??3:38P Transcribed by: ??fabricio ??On: Sep 29 2013 ??6:33P Approved Electronically by: ??DELMY COOPER M.D. ??on: ??Sep 29 2013 ??6:36P Ordering DR: DR RONALD PATEL Attending DR: DR RONALD PATEL Procedure Note Provider, MD Sofiya - 11/07/2016 Screening Mamm Bi Acc#: [id number] DATE OF EXAM: Sep 29 2013 CLINICAL HISTORY: Screen. Previous bilateral breast reduction surgery. Performed by: meghan RESULT: Two views of each breast were obtained and correlated to studies datingback through 05/02/11. Post bilateral reduction mammoplasty changes areonce again identified. The nipple on the left side is absent. There ismarked scarring in the retroareolar area on the left with considerabledimpling of the central portion of the left breast as before. There isconsiderable fat necrosis with coarse and increased benign appearingcalcifications in the central and lateral portion of the right breast. Nosuspicious mass or calcification is seen however to suggest mammographicevidence of malignancy. Digital technology was employed pluscomputer-aided detection software (R2) was utilized in interpretation ofthese images. This facility utilizes a reminder system to notify patientsof yearly mammograms. IMPRESSION: 1. NO DEFINITIVE MAMMOGRAPHIC EVIDENCE OF MALIGNANCY. 2. ANNUAL FOLLOWUP IS RECOMMENDED. BI-RADS CATEGORY 2 - BENIGN FINDINGS Interpreting Physician: DELMY COOPER M.D. Read on: Sep 29 2013 3:38P Transcribed by: fabricio On: Sep 29 2013 6:33P Approved Electronically by: DELMY COOPER M.D. on: Sep 29 2013 6:36P Ordering DR: DR RONALD PATEL Attending DR: DR RONALD PATEL us Historical Provider MD [facility] MAMMO PROCEDURES Jessica l Result documented in this encounter Visit Diagnoses Diagnosis Other screening mammogram documented in this encounter Care Teams Commutator Repairer Relationship Specialty Start Date End Date Clayton Sandoval MD [address] [facility] [place] [address] PCP - General 09/30/12 09/26/16 documented as of this encounter
--- OUTSIDE RECORDS SUMMARY | 2024-07-11 22:43 | XMS_ITS | Encounter Summary ---
Author Organization [facility] Healthcare Address [address] [place] [address] Care Team Providers Care Vocational Evaluator Name Role Phone Clayton Sandoval MD Primary Care Provider + Encounter Details Date Type Department Care Team (Late st Contact Info) Description 08/11/2013 2:21 PM CONTRACTS MANAGER - 08/11/2013 11:59 PM CONTRACTS MANAGER Hospital Encounter [facility]INCON[facility] [place]by, [place] [address] [facility] [address] [place] [address] Sarcoidosis Social History Tobacco Use Types Packs/Day Years Used Date Smoking Tobacco: Never Alcohol Use Standard Drinks/Week Comments Yes 0 (1 standard drink = 0.6 oz pur e alcohol) Comments Unknown Sex and Gender Information Value Date Recorded Sex Assigned at Not on file Legal Sex Female 11:52 PM CONTRACTS MANAGER Gender Identity Not on file Sexual [...] insulin pen 30U with meals 30 Syringe 04/01/2012 7 insulin lispro (HumaLOG KwikPen) 100 [...] Sarcoidosis documented in this encounter Care Teams Vocational Evaluator Relationship Specialty Start Date End Date Clayton Sandoval MD [address] [facility] [place] [address] PCP - General 09/30/12 09/26/16 documented as of this encounter
--- OUTSIDE RECORDS SUMMARY | 2024-07-11 22:43 | XMS_ITS | Encounter Summary ---
Author Organization [facility] Healthcare Address [address] [place] [address] Care Team Providers Care Accredited Legal Secretary Name Role Phone Clayton Sandoval MD Primary Care Provider + Encounter Details Date Type Department Care Team (Latest Contact Info) Description 04/13/2010 12:01 AM CDT - 04/13/2010 11:59 PM CDT Hospital Encounter [facility] MARILY Nicole, Americo Latif Special screening for malignant neoplasms, colon; Benign neoplasm of colon; Internal hemorrhoids; Family history of malignant neoplasm of gastrointestinal tract; Essential hypertension; Type 2 or unspecified type diabetes mellitus Social History Tobacco Use Types Packs/Day Years Used Date Smoking Tobacco: Never Alcohol Use Standard Drinks/Week Comments No 0 (1 standard drink = 0.6 oz pur e alcohol) Comments Unknown Sex and Gender Information Value Date Recorded Sex Assigned at Not on file Legal Sex Female 11:52 PM SHINGLE TRIMMER Gender Identity Not on file Sexual Orientation Not on file documented as of this encounter Medications at Time of Discharge calcium carbonate-vitamin D3 500 mg(1,250mg) -400 unit tablet Take one by mouth two times per day 0 0 08/10/2007 04/14/2024 documented as of this encounter Procedure Notes * ProviderSofiya MD - 04/13/2010 12:00 AM CDTAssociated Order(s): COLONOSCOPY PROCEDURE REPORT Patient: SUSANA RENTERIA Account: [id number] Room No: : 1950 Patient Type: OPA Attend.: Americo Nicole M.D. Admit Date: 04/13/2010 Dict.: Americo Nicole M.D. Disch. Date: 04/13/2010 NAME OF PROCEDURE: Colonoscopy. DATE OF PROCEDURE: 04/13/2010 REFERRED BY: Dr. Clayton Sandoval PREVIOUS PROCEDURE: None. X-RAYS: None. HISTORY AND PHYSICAL EXAMINATION: The patient is a 59-year-old white female with a strong family history of colorectal cancer who was is referred now for screening colonoscopy. She denies any specific complaints and she is otherwise doing clinically well. Physical examination today is that of a well-developed, well-nourished white female in no acute distress. She is nonicteric. Lungs were clear. Heart was regular. Gastrointestinal was somewhat obese, but otherwise soft and supple. Extremities showed no calf pain, cords, or edema. PRE-PROCEDURE DIAGNOSIS: 1) Screening colonoscopy in a 59-year-old female, 2) strong family history of colorectal cancer. PHYSICIAN: Dr. Americo Nicole INSTRUMENT USED: Altheos video endoscope. MEDICATIONS: Per anesthesia. FINDINGS: The colonoscope was introduced in the rectum in the left lateral position and passed to the cecum. The patient tolerated the procedure well. There were no complications. On withdrawal of the colonoscope, the mucosa appeared normal with normal vascular pattern. In the cecum and right colon, several polyps were found. At least three polyps were picked up, hot biopsied and removed. Several others were simply cauterized and destroyed. Please note all polyps appeared benign in nature. The remainder of the right, transverse, and proximal left colons were normal. In the mid to distal left colon, a polyp was found that was picked up, hot biopsied and destroyed. The remainder of the left, retrosigmoid and rectum were normal. Retroflex view of the internal anal area showed small to moderate internal hemorrhoidal tissue. Perianal examination showed no perianal disease, no rectal masses, no anal fissures, no fistulas. COMPLICATIONS: None. POST-PROCEDURE DIAGNOSIS: 1. Colonic polyps, status post hot biopsy or cautery and destruction. Three polyps removed in the right and one polyp removed in the left. 2. Otherwise normal colonoscopy to the cecum. POST-PROCEDURE ORDERS: 1) Post-sedation instructions, 2) high fiber diet, 3) check pathology, 4) repeat colon in three to five years pending pathology report, 5) follow up with Dr. Clayton Sandoval, 6) followup in my office will pend completion and finding of all the above. Americo Nicole M.D. AARON/aaron TD: 04/17/2010 14:31 CC: Clayton Sandoval M.D. PROCEDURE REPORT Authenticated by Americo Nicole MD On 2010 09:18:55 AM documented in this encounter Plan of Treatment Not on file documented as of this encounter Procedures Procedure Name Priority Date/Time Associated Diagnosis Comments COLONOSCOPY 04/13/2010 12:00 AM CDT documented in this encounter Results * COLONOSCOPY (04/13/2010 12:00 AM CDT) Anatomical Region Laterality Modality Other Narrative 04/13/2010 12:00 AM CDT Ordered by an unspecified provider. Procedure Note Provider, MD Sofiya - 04/13/2010 12:00 AM CDT PROCEDURE REPORT Patient: SUSANA RENTERIA Account: [id number] Room No: : 1950 Patient Type: OPA Attend.: Americo Nicole M.D. Admit Date: 04/13/2010 Dict.: Americo Nicole M.D. Disch. Date:04/13/2010 NAME OF PROCEDURE: Colonoscopy. DATE OF PROCEDURE: 04/13/2010 REFERRED BY: Dr. Clayton Sandoval PREVIOUS PROCEDURE: None. X-RAYS: None. HISTORY AND PHYSICAL EXAMINATION: The patient is a 59-year-old whitefemale with a strong family history of colorectal cancer who was is referred nowfor screening colonoscopy. She denies any specific complaints and she is otherwise doing clinically well. Physical examination today is that of a well-developed, well-nourishedwhite female in no acute distress. She is nonicteric. Lungs were clear. Heartwas regular. Gastrointestinal was somewhat obese, but otherwise soft andsupple. Extremities showed no calf pain, cords, or edema. PRE-PROCEDURE DIAGNOSIS: 1) Screening colonoscopy in a [id number], 2) strong family history of colorectal cancer. PHYSICIAN: Dr. Americo Nicole INSTRUMENT USED: Altheos video endoscope. MEDICATIONS: Per anesthesia. FINDINGS: The colonoscope was introduced in the rectum in the leftlateral position and passed to the cecum. The patient tolerated the procedurewell. There were no complications. On withdrawal of the colonoscope, themucosa appeared normal with normal vascular pattern. In the cecum and rightcolon, several polyps were found. At least three polyps were picked up, hotbiopsied and removed. Several others were simply cauterized and destroyed. Pleasenote all polyps appeared benign in nature. The remainder of the right,transverse, and proximal left colons were normal. In the mid to distal left colon,a polyp was found that was picked up, hot biopsied and destroyed. Theremainder of the left, retrosigmoid and rectum were normal. Retroflex view ofthe internal anal area showed small to moderate internal hemorrhoidaltissue. Perianal examination showed no perianal disease, no rectal masses, noanal fissures, no fistulas. COMPLICATIONS: None. POST-PROCEDURE DIAGNOSIS: 1. Colonic polyps, status post hot biopsy or cautery and destruction.Three polyps removed in the right and one polyp removed in the left. 2. Otherwise normal colonoscopy to the cecum. POST-PROCEDURE ORDERS: 1) Post-sedation instructions, 2) high fiber diet,3) check pathology, 4) repeat colon in three to five years pendingpathology report, 5) follow up with Dr. Clayton Sandoval, 6) followup in [facility] will pend completion and finding of all the above. Americo Nicole M.D. MA/aaron TD: 04/17/2010 14:31 CC: Clayton Sandoval M.D. PROCEDURE REPORT Authenticated by Americo Nicole MD On 2010 09:18:55 AM us Historical Provider ENDOSCOPY PROCEDURES Jessica l Result documented in this encounter Visit Diagnoses Diagnosis Special screening for malignant neoplasms, colon Benign neoplasm of colon Internal hemorrhoids Internal hemorrhoids without mention of complication Family history of malignant neoplasm of gastrointestinal tract Essential hypertension Unspecified essential hypertension Type 2 or unspecified type diabetes mellitus documented in this encounter Care Teams Accredited Legal Secretary Relationship Specialty Start Date End Date Clayton Sandoval MD [address] [facility] [place] [id number] PCP - General 09/24/07 09/29/12 documented as of this encounter
--- OUTSIDE RECORDS SUMMARY | 2024-07-11 22:43 | XMS_ITS | Encounter Summary ---
Author Organization [facility] Healthcare Address [address] [place] [address] Care Team Providers Care Laundry Pricing Clerk Name Role Phone Clayton Sandoval MD Primary Care Provider + Encounter Details Date Type Department Care Team (Late st Contact Info) Description 10/03/2014 1:38 PM CDT - 10/31/2014 11:59 PM CDT Hospital Encounter [facility] Jennifer Knapp MD [address] [place] [address] [place] [address] Enlarged lymph nodes Social History Tobacco Use Types Packs/Day Years Used Date Smoking Tobacco: Never Alcohol Use Standard Drinks/Week Comments Yes 0 (1 standard drink = 0.6 oz pur e alcohol) Comments Unknown Sex and Gender Information Value Date Recorded Sex Assigned at Not on file Legal Sex Female 11:52 PM 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 [facility] Patient Name: SUSANA RENTERIA ?[facility] Healthcare Age: 64 YRS ?: 1950 ?Sex:F ?[address] )[phone] ?? Adm Dt: 10/03/2014 ?[place] ??[id number] Created: 01/01/2015 ??0241 ?? Pt. Type: D ? Discharge Dt: 10/31/2014 ? Pathologists: Radha Simms MD Admit Dr. aRe Dr: JENNIFER ROJO MD ? BLOOD CELL COUNTS ?Collection Date: ?10/03/14 ?Collection Time: ?1604 ? Ref Range: ?? Units: [4.50-10.60] /CMM ? WBC X 10^3 ? 16.60 H [4.00-6.01] ??/CMM ? RBC X 10^6 ?4.48 [11.0-18.1] ??G/DL ? HGB ? 12.7 [35.0-60.0] ??% ?HCT ? 38.8 [80.0-100.0] FL ? MCV ? 86.6 [27.0-31.0] ??PG ? MCH ? 28.3 [33.0-37.0] ??% ?MCHC ?32.7 L [150-400] ?? /CMM ? PLT X 10^3 ? 419 H [20.0-50.0] ??% ?LYMPH PERCENT ? 13.2 L [1.0-13.0] ??% ?MONO PERCENT ? 5.6 [30.0-70.0] ??% ?GRANULOCYE % ?81.2 H [0.9-5.3] ?? /CMM ? A LYMPH ?2.2 [1.3-7.4] ?? /CMM ? A GRANULOCYTE ? 13.5 H [0.1-1.1] ?? /CMM ? A MONO ? 0.9 ? GENERAL CHEMISTRY ?Collection Date: ?10/03/14 ?Collection Time: ?1445 ? Ref Range: ?? Units: [135-145] ?? MMOL/L ? SODIUM ? 136 [3.5-5.1] ?? MMOL/L ? POTASSIUM ?4.5 [97.0-110.0] MMOL/L ? CHLORIDE ?96.0 L [22.0-32.0] ??MMOL/L ? TOTAL CO2 ? 23.2 ?? [8-16] ?MMOL/L ? ANION GAP ? 21 H Footnotes and Symbols: L = Low, H = High ?? CONTINUED ?Page: ?? 1 Patient No: [id number] ? [facility] Patient Name: SUSANA RENTERIA ?[facility] Age: 64 YRS ?: 1950 ?Sex:F ?[address] )[phone] ?? Adm Dt: 10/03/2014 ?[place], [place] ??[address] Created: 01/01/2015 ??0241 ?? Pt. Type: D ? Discharge Dt: 10/31/2014 ? Pathologists: Radha Simms MD Admit Attend Dr: JENNIFER ROJO MD ? GENERAL CHEMISTRY ?Collection Date: ?10/03/14 ?Collection Time: ?1445 ? Ref Range: ?? Units: ??[70-199] ?? MG/DL ?GLUCOSE ?297 Hf [6.2-8.2] ?? G/DL ? TOTAL PROTEIN ?8.0 [3.6-5.0] ?? G/DL ? ALBUMIN ?4.4 [1.1-1.8] ?A/G RATIO ?1.2 [8.6-10.2] ??MG/DL ?CALCIUM ?9.6 [0.1-1.2] ?? MG/DL ?BILI TOTAL ? 0.4 ??[40-130] ?? U/L ?ALK PHOS ?90 ??[10-40] ?U/L ?AST(SGOT) ? 33 f ?? [5-45] ?U/L ?ALT(SGPT) ? 39 f [8.0-25.0] ??MG/DL ?BUN ? 33.4 H ??[10-20] ? B/C RATIO ? 31 H [0.60-1.10] ??MG/DL ?CREATININE ?1.09 f ?10/03/14 1445 eGFR:54 ml/min/1.73sq.m if non -Bangladeshi. eGFR:65 ml/min/1.73sq.m if -Bangladeshi. AVE GFR for 60-69 yr. age group: ??85 ml/min/173sq.m Calculated using MDRD Equation FOOTNOTE ADDED ON ?? 10/03/14 ?? AT 1652 BY 999 Footnotes and Symbols: H = High, f = Footnote GLUCOSE (08/24/14 -- Current) Note:The glucose is assumed non fasting Fastin-99 mg/dl Random: 70-199 mg/dl Either a fasting glucose > 126 mg/dL or a random glucose > 200 mg/dL plus symptoms is diagnostic of diabetes when confirmed on another day. Fasting values > 100 mg/dl but < 125 mg/dL are diagnostic of impaired fasting glucose. AST(SGOT) (11/25/13 -- Current) ALT(SGPT) (02/02/13 -- Current) ?? CONTINUED ?Page: ?? 2 Patient No: [id number] ? [facility] Patient Name: SUSANA RENTERIA ?[facility] Age: 64 YRS ?: 1950 ?Sex:F ?[address] )[phone] ?? Adm Dt: 10/03/2014 ?[place], [place] ??[address] Created: 01/01/2015 ??0241 ?? Pt. Type: D ? Discharge Dt: 10/31/2014 ? Pathologists: Radha Simms MD Admit DrRamo Attend Dr: JENNIFER ROJO MD ? CARDIAC CHEMISTRY ?Collection Date: ?10/03/14 ?Collection Time: ?1445 ? Ref Range: ?? Units: [100-200] ?? U/L ?LD ? 192 ?? END OF CHART ? Page: ?? 3 us Historical Provider MD LAB BLOOD ORDERABLES Jessica l Result HISTORICAL RESULTS * (ABNORMAL) Blood cell count (CBC) (10/03/2014 4:04 PM CDT) WBC 16.6(H) 4.5 - 10.6 K/cumm HISTORICAL RESULTS RBC 4.48 4.00 - 6.01 M/cumm HISTORICAL RESULTS Hgb 12.7 11.0 - 18.1 g/dl HISTORICAL RESULTS Hct 38.8 35.0 - 60.0 % HISTORICAL RESULTS MCV 86.6 80.0 - 100.0 fl HISTORICAL RESULTS MCH 28.3 27.0 - 31.0 pg HISTORICAL RESULTS MCHC 32.7(L) 33.0 - 37.0 g/dl HISTORICAL RESULTS Rdw 15.1(H) 11.5 - 14.6 % HISTORICAL RESULTS Platelets 419(H) 150 - 400 K/cumm HISTORICAL RESULTS MPV 7.4 7.4 - 10.4 fl HISTORICAL RESULTS Lymphocytes 13.2(L) 20.0 - 50.0 % HISTORICAL RESULTS Monos 5.6 1.0 - 13.0 % HISTORICAL RESULTS Neutrophils 81.2(H) 30.0 - 70.0 % HISTORICAL RESULTS Lymphocytes, abs 2.2 0.9 - 5.3 K/cumm HISTORICAL RESULTS Monocytes, absolute 0.9 0.1 - 1.1 K/cumm HISTORICAL RESULTS Neutrophils, abs 13.5(H) 1.3 - 7.4 K/cumm HISTORICAL RESULTS Blood specimen (specimen) 10/03/2014 4:04 PM CDT Jennifer Rojo MD LAB BLOOD ORDERABLES Fin al Result HISTORICAL RESULTS * Serum lactate dehydrogenase (LDH) (10/03/2014 2:45 PM CDT) Lactate dehydrogenase (LDH) 192 100 - 200 IUnits/L HISTORICAL RESULTS Serum 10/03/2014 2:45 PM CDT Jennifer Rojo MD LAB BLOOD ORDERABLES Fin al Result HISTORICAL RESULTS * (ABNORMAL) Serum comprehensive metabolic panel (10/03/2014 2:45 PM CDT) BUN 33.4(H) 8.0 - 25.0 mg/dl HISTORICAL RESULTS Sodium 136 135 - 145 mmol/L HISTORICAL RESULTS Potassium, sr 4.5 3.5 - 5.1 mmol/L HISTORICAL RESULTS Chloride 96(L) 97 - 110 mmol/L HISTORICAL RESULTS CO2 23 22 - 32 mmol/L HISTORICAL RESULTS Glucose 297(H) 70 - 199 mg/dl HISTORICAL RESULTS Comment: Note:The glucose is assumed non fasting Fastin-99 mg/dl Random: 70-199 mg/dl Either a fasting glucose > 126 mg/dL or a random glucose > 200 mg/dL plus symptoms is diagnostic of diabetes when confirmed on another day. Fasting values > 100 mg/dl but < 125 mg/dL are diagnostic of impaired fasting glucose. Creatinine 1.09 0.60 - 1.10 mg/dl HISTORICAL RESULTS Comment: eGFR:54 ml/min/1.73sq.m if non -Bangladeshi. eGFR:65 ml/min/1.73sq.m if -Bangladeshi. AVE GFR for 60-69 yr. age group: ??85 ml/min/173sq.m Calculated using MDRD Equation BUN/creat ratio 31(H) 10 - 20 HIST ORICAL RESULTS A. gap 21(H) 8 - 16 mmol/L HISTORICAL RESULTS Protein, sr 8.0 6.2 - 8.2 g/dl HISTORICAL RESULTS Alb 4.4 3.6 - 5.0 g/dl HISTORICAL RESULTS Alb/glob ratio 1.2 1.1 - 1.8 HISTO RICAL RESULTS Calcium 9.6 8.6 - 10.2 mg/dl HISTORICAL RESULTS Bilirubin 0.4 0.1 - 1.2 mg/dl HISTORICAL RESULTS Alk phos 90 40 - 130 Units/L HISTORICAL RESULTS AST 33 10 - 40 Units/L HISTORICAL RESULTS ALT 39 5 - 45 Units/L HISTORICAL RESULTS Serum 10/03/2014 2:45 PM CDT us Jennifer Rojo MD LAB BLOOD ORDERABLES Fin al Result HISTORICAL RESULTS documented in this encounter Visit Diagnoses Diagnosis Enlarged lymph nodes Enlargement of lymph nodes documented in this encounter Care Teams Laundry Pricing Clerk Relationship Specialty Start Date End Date Clayton Sandoval MD [address] [facility] [facility] [address] PCP - General 09/30/12 09/26/16 documented as of this encounter
--- OUTSIDE RECORDS SUMMARY | 2024-07-11 22:43 | XMS_ITS | Encounter Summary ---
Author Organization [facility] Healthcare Address [address] [place] [address] Care Team Providers Care Gray Mixing Operator Name Role Phone Clayton Sandoval MD Primary Care Provider + Encounter Details Date Type Department Care Team (Late st Contact Info) Description 07/29/2012 10:55 AM MOTORCYCLE TECHNICIAN - 07/29/2012 11:59 PM MOTORCYCLE TECHNICIAN Hospital Encounter [facility] [place], [place] [address] [facility][1] [address] [place] [address] Sarcoidosis Social History Tobacco Use Types Packs/Day Years Used Date Smoking Tobacco: Never Alcohol Use Standard Drinks/Week Comments No 0 (1 standard drink = 0.6 oz pur e alcohol) Comments Unknown Sex and Gender Information Value Date Recorded Sex Assigned at Not on file Legal Sex Female 11:52 PM MOTORCYCLE 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
--- OUTSIDE RECORDS SUMMARY | 2024-07-11 22:43 | XMS_ITS | Encounter Summary ---
Author Organization [facility] Healthcare Address [address] [place] [address] Care Team Providers Care Fire Behavior Analyst Name Role Phone Clayton Sandoval MD Primary Care Provider + Encounter Details Date Type Department Care Team (Late st Contact Info) Description 06/20/2014 1:58 PM SHANK SCOURER - 06/20/2014 11:59 PM SHANK SCOURER Hospital Encounter CH Clayton Wyman MD [address] [place] [address] Type 2 or unspecified type diabetes mellitus; Other and unspecified hyperlipidemia Social History Tobacco Use Types Packs/Day Years Used Date Smoking Tobacco: Never Alcohol Use Standard Drinks/Week Comments Yes 0 (1 standard drink = 0.6 oz pur e alcohol) Comments Unknown Sex and Gender Information Value Date Recorded Sex Assigned at Not on file Legal Sex Female 11:52 PM SHANK SCOURER Gender Identity Not on file Sexual [...] Date/Time Associated Diagnosis Comments URINE MICROBIOLOGY Routine 06/20/2014 12 :00 AM SHANK SCOURER documented in this encounter Results * Urine Microbiology (06/20/2014 12:00 AM SHANK SCOURER) 06/20/2014 Narrative HISTORICAL RESULTS - 06/22/2014 4:46 PM SHANK SCOURER [facility] ?Patient Name: ?RAGHU RENTERIA ?Med. Rec#: ?? [id number] ?Pt. Acct.#: ??[id number] ?Birthdate: ?? 1950 ?Age / Sex: ?? 64Y / F ?Location: ?[facility] (Laborato ?Admit Date: ??06/17/2014 ?Discharge Date: ? 06/17/2014 ?Doctor: ?Patient Type: ?CH Ancillary - Insur Culture, Urine ? Collected: 06/20/2014 10:58 Specimen: Urine ?? Specimen Source: Clean Voided Specimen Status: Final ??Last Update: 06/22/2014 09:36 Organism ?? Less than 10,000 cfu/ml of ?? Gram negative bacilli Organism ?? Less than 10,000 cfu/ml of ?? multiple Gram positive organisms Comment ? This culture result is consistent with contamination ?? by normal genital-perineal geovani. us Historical Provider LAB MICROBIOLOGY - GENERA L ORDERABLES Final Result HISTORICAL RESULTS documented in this encounter Visit Diagnoses Diagnosis Type 2 or unspecified type diabetes mellitus Other and unspecified hyperlipidemia documented in this encounter Care Teams Fire Behavior Analyst Relationship Specialty Start Date End Date Clayton Sandoval MD [address] [place] [address] PCP - General 09/30/12 09/26/16 documented as of this encounter
--- OUTSIDE RECORDS SUMMARY | 2024-07-11 22:43 | XMS_ITS | Encounter Summary ---
Author Organization [facility] Healthcare Address [address] [place] [address] Care Team Providers Care Senior Technical Support Analyst Name Role Phone Clayton Sandoval MD Primary Care Provider + Encounter Details Date Type Department Care Team (Late st Contact Info) Description 10/24/2014 9:07 AM CDT - 10/24/2014 11:59 PM T Hospital Encounter [facility] Jennifer Knapp MD [address] [place] [address] [place] [address] Enlarged lymph nodes; Nonspecific (abnormal) findings on radiological and other examination of lung field; Other chronic nonalcoholic liver disease Social History Tobacco Use Types Packs/Day Years Used Date Smoking Tobacco: Never Alcohol Use Standard Drinks/Week Comments Yes 0 (1 standard drink = 0.6 oz pur e alcohol) Comments Unknown Sex and Gender Information Value Date Recorded Sex Assigned at Not on file 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 Gender Identity Not on file Sexual Orientation Not on file documented as of this encounter Medications at Time of Discharge blood-glucose meter (CONTOUR NEXT USB METER) [facility] [place] test as directed 1 each 0 07/04/2014 [...] Procedure Name Priority Date/Time Associated Diagnosis Comments CHEST, ABDOMINAL COMPUTED TOMOGRAPHY (CT) WITH CONTRAST Routine 10/24/2014 11:23 AM CDT documented in this encounter Results * CHEST, ABDOMINAL COMPUTED TOMOGRAPHY (CT) WITH CONTRAST (10/24/2014 11:23 AM CDT) Anatomical Region Laterality Modality N/A Computed Tomogra phy 10/24/2014 11:2 3 AM CDT Narrative 10/25/2014 10:[address] Chest/Abd W ??[id number] ??Acc#: ??[id number] DATE OF EXAM: ??Oct [address] OF THE CHEST: CLINICAL HISTORY: Enlarged lymph nodes. ??Follow-up nodules. RESULT: Helical CT scan of the chest obtained following intravenous administration of contrast. ??100ml of Optiray 320 for the combination of the CT of the chest and abdomen. ??Compared with 07/25/14. Mild right hilar lymphadenopathy is unchanged from previously. ??Some minimal to mild left hilar opacity, borderline for lymphadenopathy, with a very similar appearance to the prior study. ??A few mediastinal lymph nodes are evident, with a similar appearance to the prior study. ??One periaortic lymph node is mildly enlarged. ??This appears slightly more prominent than previously. ??Calcification of the aorta consistent with arteriosclerotic changes. ??Heart size is normal. ??No pericardial effusion is evident. ??Also evidence of some mild subcarinal lymphadenopathy. ??A noncalcified nodule is seen on image #16 which is unchanged from the prior study. ??This is associated with the major fissure. ??Another noncalcified nodule is seen on image #25 and 24. ??This is not significantly changed from the prior study. ??This measures approximately 6mm. ??The nodule on image #16 measures approximately 9mm, as previously. Both nodules in the right lung are not significantly changed from the prior study. ??A nodule in the left lung is seen on image #25. ??This appears fairly similar to the prior study. ??Slight difference in appearance is likely primarily due to technical factors. ??This is in the left midchest. ??No new nodule identified. ??No lung consolidation identified. ??Some minimal atelectasis/scarring primarily right lung base particularly right lower lobe. ??Fairly minimal calcification of the aorta consistent with arteriosclerotic changes. IMPRESSION: 1. MILD NONSPECIFIC RIGHT HILAR LYMPHADENOPATHY. ??BORDERLINE LEFT HILAR LYMPHADENOPATHY. ??NOT SIGNIFICANTLY CHANGED FROM PREVIOUSLY. ??SOME MILD SUBCARINAL LYMPHADENOPATHY. ??ONE PERIAORTIC LYMPH NODE IS MILDLY ENLARGED, AND MORE PROMINENT THAN PREVIOUSLY. 2. TWO RIGHT AND ONE LEFT-SIDED NONSPECIFIC NONCALCIFIED SUBCENTIMETER PULMONARY NODULES, NOT SIGNIFICANTLY CHANGED FROM PRIOR STUDY. ADDITIONAL FOLLOW-UP IN SIX MONTHS WOULD BE BENEFICIAL. 3. SOME MINIMAL ATELECTASIS/SCARRING PRIMARILY RIGHT LUNG BASE/RIGHT LOWER LOBE. CT ABDOMEN: HISTORY: Enlarged lymph nodes. REPORT: Helical CT scan of the abdomen obtained following intravenous and oral administration of contrast. ??Images from the lung bases to the iliac crests. ??Compared with the prior study of 07/25/14. Diminished attenuation of the liver parenchyma consistent with hepatic steatosis. ??Several low density lesions within the spleen. ??Similar appearance to the prior study. ??Some mild replacement of the pancreas with adipose tissue, as previously. ??The kidneys demonstrate no evidence of hydronephrosis. ??No adrenal mass identified. ??One small cyst right kidney. ??Mild lymphadenopathy in the upper abdomen, primarily retroperitoneal lymphadenopathy, which is not significantly changed from the prior study of 07/25/14. ??Some calcification of the abdominal aorta consistent with arteriosclerotic changes. ??No dilated loops of small bowel are evident. ??Degenerative changes of the lumbar spine with spurring as well as degenerative disc disease. INTERPRETATION: 1. MILD LYMPHADENOPATHY IN THE UPPER ABDOMEN, PRIMARILY RETROPERITONEAL LYMPHADENOPATHY, WITH A VERY SIMILAR APPEARANCE TO THE PRIOR STUDY OF 07/25/14. 2. SEVERAL LOW DENSITY LESIONS WITHIN THE SPLEEN, NOT SIGNIFICANTLY CHANGED FROM THE PRIOR STUDY. 3. HEPATIC STEATOSIS. Interpreting Physician: ??KATHERINE ORELLANA M.D. ??Read on: ??Oct 24 2014 11:34A Transcribed by: ??mrr ??On: Oct 24 2014 ??2:31P Approved Electronically by: ??KATHERINE ORELLANA M.D. ??on: ??Oct 25 2014 10:45A Attending: ??, Requesting: ??DR JENNIFER ROJO Requesting Fax: ??-- Attending Fax: ??-- Attending ID: ?? Requesting ID: ??[id number] Report To 1 ID: ??[id number] Report To 1 Name: ??DR JENNIFER ROJO Report To 1 FAX: ??-- NextGen Order #: Procedure Note Provider, MD Sofiya - 11/07/[address] Chest/Abd W [id number] Acc#: [id number] DATE OF EXAM: Oct [address] OF THE CHEST: CLINICAL HISTORY: Enlarged lymph nodes. Follow-up nodules. RESULT: Helical CT scan of the chest obtained following intravenousadministration of contrast. 100ml of Optiray 320 for the combination ofthe CT of the chest and abdomen. Compared with 07/25/14. Mild right hilarlymphadenopathy is unchanged from previously. Some minimal to mild lefthilar opacity, borderline for lymphadenopathy, with a very similarappearance to the prior study. A few mediastinal lymph nodes are evident,with a similar appearance to the prior study. One periaortic lymph nodeis mildly enlarged. This appears slightly more prominent than previously.Calcification of the aorta consistent with arteriosclerotic changes.Heart size is normal. No pericardial effusion is evident. Also evidenceof some mild subcarinal lymphadenopathy. A noncalcified nodule is seen onimage #16 which is unchanged from the prior study. This is associatedwith the major fissure. Another noncalcified nodule is seen on image #25and 24. This is not significantly changed from the prior study. This measures approximately 6mm. The nodule on image #16 measuresapproximately 9mm, as previously. Both nodules in the right lung are notsignificantly changed from the prior study. A nodule in the left lung isseen on image #25. This appears fairly similar to the prior study.Slight difference in appearance is likely primarily due to technicalfactors. This is in the left midchest. No new nodule identified. Nolung consolidation identified. Some minimal atelectasis/scarringprimarily right lung base particularly right lower lobe. Fairly minimalcalcification of the aorta consistent with arteriosclerotic changes. IMPRESSION: 1. MILD NONSPECIFIC RIGHT HILAR LYMPHADENOPATHY. BORDERLINE LEFT HILARLYMPHADENOPATHY. NOT SIGNIFICANTLY CHANGED FROM PREVIOUSLY. SOME MILDSUBCARINAL LYMPHADENOPATHY. ONE PERIAORTIC LYMPH NODE IS MILDLY ENLARGED,AND MORE PROMINENT THAN PREVIOUSLY. 2. TWO RIGHT AND ONE LEFT-SIDED NONSPECIFIC NONCALCIFIED SUBCENTIMETERPULMONARY NODULES, NOT SIGNIFICANTLY CHANGED FROM PRIOR STUDY. ADDITIONALFOLLOW-UP IN SIX MONTHS WOULD BE BENEFICIAL. 3. SOME MINIMAL ATELECTASIS/SCARRING PRIMARILY RIGHT LUNG BASE/RIGHT LOWERLOBE. CT ABDOMEN: HISTORY: Enlarged lymph nodes. REPORT: Helical CT scan of the abdomen obtained following intravenous and oraladministration of contrast. Images from the lung bases to the iliaccrests. Compared with the prior study of 07/25/14. Diminished attenuationof the liver parenchyma consistent with hepatic steatosis. Several lowdensity lesions within the spleen. Similar appearance to the prior study.Some mild replacement of the pancreas with adipose tissue, as previously.The kidneys demonstrate no evidence of hydronephrosis. No adrenal massidentified. One small cyst right kidney. Mild lymphadenopathy in theupper abdomen, primarily retroperitoneal lymphadenopathy, which is notsignificantly changed from the prior study of 07/25/14. Some calcificationof the abdominal aorta consistent with arteriosclerotic changes. Nodilated loops of small bowel are evident. Degenerative changes of thelumbar spine with spurring as well as degenerative disc disease. INTERPRETATION: 1. MILD LYMPHADENOPATHY IN THE UPPER ABDOMEN, PRIMARILY RETROPERITONEALLYMPHADENOPATHY, WITH A VERY SIMILAR APPEARANCE TO THE PRIOR STUDY OF07/25/14. 2. SEVERAL LOW DENSITY LESIONS WITHIN THE SPLEEN, NOT SIGNIFICANTLYCHANGED FROM THE PRIOR STUDY. 3. HEPATIC STEATOSIS. Interpreting Physician: KATHERINE ORELLANA M.D. Read on: Oct 24 2014 11:34A Transcribed by: aura On: Oct 24 2014 2:31P Approved Electronically by: KATHERINE ORELLANA M.D. on: Oct 25 2014 10:45A Attending: , Requesting: DR JENNIFER ROJO Requesting Fax: -- Attending Fax: -- Attending ID: Requesting ID: [id number] Report To 1 ID: [id number] Report To 1 Name: DR JENNIFER ROJO Report To 1 FAX: -- NextGen Order #: us Historical Provider MD LAZO CT PROCEDURES Final R esult documented in this encounter Visit Diagnoses Diagnosis Enlarged lymph nodes Enlargement of lymph nodes Nonspecific (abnormal) findings on radiological and other examination of lung field Other chronic nonalcoholic liver disease documented in this encounter Care Teams Senior Technical Support Analyst Relationship Specialty Start Date End Date Clayton Sandoval MD [address] [place] [address] PCP - General 09/30/12 09/26/16 documented as of this encounter
--- OUTSIDE RECORDS SUMMARY | 2024-07-11 22:43 | XMS_ITS | Encounter Summary ---
Author Organization [facility] Healthcare Address [address] [place] [address] Care Team Providers Care Nuclear Equipment Operator Name Role Phone Clayton Sandoval MD Primary Care Provider + Encounter Details Date Type Department Care Team (Late st Contact Info) Description 09/14/2014 12:45 PM STOKER ERECTOR - 09/14/2014 11:59 PM STOKER ERECTOR Hospital Encounter [facility] CLINCON[place], [place] [address] [facility] [address] [place] [address] Sarcoidosis Social History Tobacco Use Types Packs/Day Years Used Date Smoking Tobacco: Never Alcohol Use Standard Drinks/Week Comments Yes 0 (1 standard drink = 0.6 oz pur e alcohol) Comments Unknown Sex and Gender Information Value Date Recorded Sex Assigned at Not on file Legal Sex Female 11:52 PM STOKER ERECTOR Gender Identity Not on file Sexual Orientation [...] Comments CHEST RADIOGRAPHY, FRONTAL (AP), LATERAL Routine 09/14/2014 1:14 PM STOKER ERECTOR PULMONARY FUNCTION TEST (PFT) 09/14/2014 PULMONARY FUNCTION TEST (PFT) Routine 09/14/2014 12:00 AM STOKER ERECTOR documented in this encounter Results * CHEST RADIOGRAPHY, FRONTAL (AP), LATERAL (09/14/2014 1:14 PM STOKER ERECTOR) Anatomical Region Laterality Modality N/A Radiographic Pamela ging 09/14/2014 1:14 PM STOKER ERECTOR Narrative 09/15/2014 8:22 AM STOKER ERECTOR DATE OF EXAM: ??Mar ??2014 ??1:14PM Acc#: ??[id number] ??EDX [id number] - XR Chest 2 Views ?? DIAGNOSIS: ??SARCOIDOSIS CLINICAL HISTORY: ?? SARCOIDOSIS RESULT: CHEST, PA AND LATERAL, 09/14/14. HISTORY: ??Sarcoidosis. ?? COMPARISON: ??03/08/09. FINDINGS: ??The thickness of right paratracheal stripe is stable and most likely is due to vascular silhouette rather than lymphadenopathy. ??There is no evidence of bilateral hilar lymphadenopathy on the chest radiograph. ??The heart is borderline enlarged. ??The pulmonary vasculature is normal. ??The septa are not thickened. ??No infiltrations, consolidations, pneumothoraces, pleural effusions, or fractures are identified. 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 ?? IMPRESSION: ? NO ACUTE PROCESS OR SIGNIFICANT INTERVAL CHANGES. ?? GLASSINE MACHINE TENDER: ??DD2 TRANSCRIBE DATE/TIME: ??Sep ??2014 ??7:35P RADIOLOGIST: ??DEMETRA STOREY M.D. ??READ ON: ??Mar ??4 2014 ??1:42P ORDERING DR: TITO PIERRE M.D. THIS DOCUMENT HAS BEEN ELECTRONICALLY SIGNED BY: ??DEMETRA STOREY M.D. ??ON: ??Mar ??5 2015 ??8:22A Attending: ??, ?? Requesting: ??GABBY, ??TITO Requesting Fax: ??-- Attending Fax: ??-- Attending ID: ?? Requesting ID: ??[id number] NextGen Order #: ?? Procedure Note Provider, MD Sofiya - 11/07/2016 DATE OF EXAM: Sep 14 2014 1:14PM Acc#: [id number] EDX [id number] - XR Chest 2 Views DIAGNOSIS: SARCOIDOSIS CLINICAL HISTORY: SARCOIDOSIS RESULT: CHEST, PA AND LATERAL, 09/14/14. HISTORY: Sarcoidosis. COMPARISON: 03/08/09. FINDINGS: The thickness of right paratracheal stripe is stable and most likely is due to vascular silhouette rather than lymphadenopathy. There is no evidence of bilateral hilar lymphadenopathy on the chest radiograph. The heart is borderline enlarged. The pulmonary vasculature is normal. The septa are not thickened. No infiltrations, consolidations, pneumothoraces, pleural effusions, or fractures are identified. 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 IMPRESSION: NO ACUTE PROCESS OR SIGNIFICANT INTERVAL CHANGES. GLASSINE MACHINE TENDER: NGOZI TRANSCRIBE DATE/TIME: Sep 14 2014 7:35P RADIOLOGIST: DEMETRA STOREY M.D. READ ON: Sep 14 2014 1:42P ORDERING DR: TITO PIERRE M.D. THIS DOCUMENT HAS BEEN ELECTRONICALLY SIGNED BY: DEMETRA STOREY M.D. ON: Sep 15 2014 8:22A Attending: , Requesting: TITO PIERRE Requesting Fax: -- Attending Fax: -- Attending ID: Requesting ID: [id number] NextGen Order #: us Historical Provider IMAriel XR PROCEDURES Final R esult * PULMONARY FUNCTION TEST (09/14/2014) Anatomical Region Laterality Modality PFT Narrative 09/14/2014 Ordered by an unspecified provider. us Historical Provider MD PFT ORDERABLES Final Res ult * Pulmonary function test (09/14/2014 12:00 AM STOKER ERECTOR) Anatomical Region Laterality Modality PFT 09/14/2014 Narrative 09/16/2014 4:40 PM STOKER ERECTOR ? PULMONARY FUNCTION REPORT - NE Patient: ??SUSANA RENTERIA Account: ??[id number] ?Room No: : ?1950 ?Patient Type: ??ANC Attend.: ??Tito Pierre M.D. ?Admit Date: ?09/14/2014 Dict.: ?Americo Liriano M.D. ?Disch. Date: ?? 09/14/2014 date 1950. The patient has a listed diagnosis of sarcoidosis. The patient is 5 feet 6 inches, 247 pounds. The patient has resting room air saturation of 98%. According to numerical data as entered into Clinical Desktop, the patient has mild decrease in vital capacity at 67% of predicted that does not improve after inhaled bronchodilator. The FEV1, however, is only minimally decreased at 77% of predicted. The patient's static lung volumes show residual volume that is moderately decreased. Thoracic gas volume is moderately severely decreased and there is a mild decrease in total lung capacity. The patient's gas transfer as measured by DLCO is 42%. IMPRESSION: Mild to moderate air flow restriction with abnormal gas transfer and small airway dysfunction without response to inhaled bronchodilator. This study is compatible with sarcoidosis, however, central obesity also is probably playing a role as her expiratory reserve volume was only 36% of predicted. 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 Correlate clinically with the radiograph. Dictated by: ??Americo Liriano M.D. SUPERVISOR SANDING/ms Job #: ??[id number] DD: ??09/15/2014 16:17 TD: ??09/15/2014 16:57 Electronically Authenticated by: Americo Liriano MD On 09/16/2014 03:29 PM STOKER ERECTOR us Historical Provider PFT ORDERABLES Final Res ult documented in this encounter Visit Diagnoses Diagnosis Sarcoidosis documented in this encounter Care Teams Nuclear Equipment Operator Relationship Specialty Start Date End Date Clayton Sandoval MD [address] [facility] [place] [address] PCP - General 09/30/12 09/26/16 documented as of this encounter
--- OUTSIDE RECORDS SUMMARY | 2024-07-11 22:43 | XMS_ITS | Encounter Summary ---
Author Organization [facility] Healthcare Address [address] [place] [address] Care Team Providers Care Printing Engineer Name Role Phone Clayton Sandoval MD Primary Care Provider + Encounter Details Date Type Department Care Team (Latest Contact Info) Description 06/16/2013 8:11 AM SENIOR BENEFITS ANALYST - 06/16/2013 11:00 AM SENIOR BENEFITS ANALYST Hospital Encounter [facility] Adames, Jennifer Latif Esophageal reflux; Benign neoplasm of colon; History of colonic polyps; Type 2 or unspecified type diabetes mellitus; Family history of malignant neoplasm of gastrointestinal tract Social History Tobacco Use Types Packs/Day Years Used Date Smoking Tobacco: Never Alcohol Use Standard Drinks/Week Comments Yes 0 (1 standard drink = 0.6 oz pur e alcohol) Comments Unknown Sex and Gender Information Value Date Recorded Sex Assigned at Not on file Legal Sex Female 11:52 PM SENIOR BENEFITS ANALYST Gender Identity Not on file Sexual [...] A DAY OR DIRECTED 240 each 11/26/2010 7 simvastatin (ZOCOR) 40 mg tablet take 1/2 Tablet by ORAL route every day in the evening 06/28/2010 7 simvastatin (ZOCOR) 40 mg tablet TAKE ONE TABLET BY MOUTH EVERY EVENING 156 06/28/2010 7 documented as of this encounter Procedure Notes * Provider, MD Sofiya - 06/16/2013 12:00 AM CSTAssociated Order(s): COLONOSCOPY PROCEDURE REPORT Patient: CRISS RENTERIA Account: [id number] Room No: : 1950 Patient Type: Attend.: Jennifer Adames M.D. Admit Date: 06/16/2013 Dict.: Jennifer Adames M.D. Disch. Date: 06/16/2013 NAME OF PROCEDURE: Colonoscopy. DATE OF PROCEDURE: 06/16/2013. REFERRING PHYSICIAN: Dr. Clayton Sandoval. PREVIOUS PROCEDURE: Colonoscopy with polyps removed. X-RAYS: None. HISTORY AND PHYSICAL EXAM: The patient is a 63-year-old white female with history of colonic polyps as well as strong family history of colorectal cancer. She returns now for repeat endoscopic evaluation of her colon. PHYSICAL EXAMINATION: Physical exam today is that of an obese, white female in no acute distress. She is nonicteric. Her lungs were clear. Heart was regular without current jugular venous distention or pedal edema. Gastrointestinal was soft and supple. Extremities showed no calf pain, cords, or edema. PREPROCEDURE DIAGNOSES 1. History of colonic polyps. 2. Strong family history of colorectal cancer. INSTRUMENT USED: Olympus video endoscope. FINDINGS: The colonoscope was introduced and passed to the proximal right colon. Due to angulation fixation as well as tortuosity, it was not possible to drop down into the proximal right colon and cecal area. This was despite applying counter pressure and rolling the patient in different positions. Because of this, polyps removed in the hepatic and transverse colon area. An excess of 13 polyps were removed with several cauterized. The endoscope was subsequently withdrawn and the adult colonoscope was introduced and passed. This was also passed to the proximal right colon, however, it was not possible to advance this safely down into the right colon and fecal area. Because of wishes to avoid any injury, it was elected to discontinue the procedure. The colonoscope was subsequently withdrawn. In the left colon at least three polyps were found. These were all hot biopsied and removed. Several small polyps were also cauterized and destroyed. The remainder of the left rectosigmoid and rectum were normal. Retroflex view of the internal anal area showed moderate internal hemorrheal tissue. Perianal exam showed no perianal disease and no rectal masses. COMPLICATIONS: None. POSTPROCEDURE DIAGNOSES 1. Multiple colonic polyps with 13 removed in the hepatic flexure and transverse colon area and three removed in the left colon. Several additional polyps were cauterized and destroyed. 2. Unable to effect cannulation of the cecum despite multiple maneuvers and counter pressure. 3. Withdrawal time of 43 minutes with fair to good prep. 4. Family history of colorectal cancer. 5. History of colonic polyps. POSTPROCEDURE ORDERS 1. Post sedation instructions. 2. High fiber diet. 3. Check polyp pathology. 4. Will discuss with the patient. Repeat colonoscopy either here or with tertiary referral. Further workup or therapy pending completion of finding of all of the above. Jennifer Adames M.D. MARTY/jeanine TD: 06/16/2013 23:08 CC: Clayton Sandoval M.D. Authenticated by Jennifer Adames MD On 06/18/2013 03:13:04 PM documented in this encounter Plan of Treatment Not on file documented as of this encounter Procedures Procedure Name Priority Date/Time Associated Diagnosis Comments DISCHARGE CUMULATIVE SUMMARY ADDENDUM Routine 06/18/2013 12:28 AM SENIOR BENEFITS ANALYST SURGICAL PATHOLOGY REPORT Routine 06/16/2013 12:58 PM SENIOR BENEFITS ANALYST BLOOD GLUCOSE Routine 06/16/2013 9:06 AM SENIOR BENEFITS ANALYST DISCHARGE LABORATORY CUMULATIVE REPORT Routine 06/16/2013 12:00 AM SENIOR BENEFITS ANALYST COLONOSCOPY 06/16/2013 12:00 AM SENIOR BENEFITS ANALYST documented in this encounter Results * Discharge Cumulative Summary Addendum (06/18/2013 12:28 AM SENIOR BENEFITS ANALYST) 06/18/2013 12:2 8 AM SENIOR BENEFITS ANALYST Narrative HISTORICAL RESULTS - 06/18/2013 12:28 AM SENIOR BENEFITS ANALYST Patient No: [id number] ? [facility] Patient Name: CRISS RENTERIA ?[facility] Healthcare Age: 63 YRS ?: 1950 ?Sex:F ?[address] )[id number] ?? Adm Dt: 06/16/2013 ?[place], [place] ??[address] Created: 06/18/2013 ??0028 ?? Pt. Type: U ? Discharge Dt: 06/16/2013 ? Pathologists: Radha Simms MD Admit Dr. Kyra Antunez: JENNIFER ADAMES MD ?S U R G I C A L ?P A T H O L O G Y ?R E P O R T ? Case #: ?[id number] ? Date: 06/16/13 SPECIMEN SOURCE: ? 1. ??Hepatic flex and transverse colon (13+) polyps. ? 2. ??Left colon (3+) polyps. ? 3. ??Esophageal biopsy. CLINICAL INFORMATION AND IMPRESSION: ? GERD with symptoms despite Rx with PPIs/history polyps. ??Multiple polyps. Rule ? out Viktoria/EOE. ??Colonoscopy. GROSS DESCRIPTION: ? The specimen is submitted in three containers labeled Criss Renteria. ? Part 1 is labeled hepatic flexure and transverse polyp. ??It is submitted in ? formalin and consists of 15 fragments of myers soft tissue that each measure 0.1 ? cm in maximum dimensions. All submitted in cassette 1A. ? Part 2 is labeled polyp left colon. ??It is submitted in formalin and ? consists of three fragments of myers soft tissue that each measure 0.1 cm in ? maximum dimensions. All submitted in cassette 2A. ? Part 3 is labeled esophagus biopsy. ??It is submitted in formalin and ? consists of four fragments of white soft tissue that each measure 0.1 cm in ? maximum dimensions. All submitted in cassette 3A. ?GK/mm/lm MICROSCOPIC DESCRIPTION: ? Almost all of the hepatic flexure and transverse colon fragments show tubular ? adenoma formation. ??One piece takes a mixed tubular and villous pattern. ??No ? high-grade dysplasia is evident. ? The left colon fragments all show tubular adenoma formation. ? The esophagus specimen is intact squamous epithelium. ??A PAS stain for fungi ? shows none. There are no eosinophils. ?? SJ/LM ?? CONTINUED ?Page: ?? 1 Patient No: [id number] ? [facility] Patient Name: DEXTER, CRISS SYLVESTER ?[facility] Healthcare Age: 63 YRS ?: 1950 ?Sex:F ?[address] )[id number] ?? Adm Dt: 06/16/2013 ?[place], [place] ??[address] Created: 06/18/2013 ??0028 ?? Pt. Type: U ? Discharge Dt: 06/16/2013 ? Pathologists: Radha Simms MD Admit DrRamo Attend Dr: JENNIFER ADAMES MD ?S U R G I C A L ?P A T H O L O G Y ?R E P O R T ? Case #: ?[id number] ? Date: 06/16/13 DIAGNOSIS: ? HEPATIC FLEXURE AND TRANSVERSE COLON POLYPS, BIOPSIES ? -TUBULAR ADENOMAS AND TUBULOVILLOUS ADENOMA ? LEFT COLON POLYPS, BIOPSIES ? -TUBULAR ADENOMAS ? ESOPHAGUS, BIOPSY ? -BENIGN SQUAMOUS EPITHELIUM WITHOUT DIAGNOSTIC CHANGES ? L53926, M59950, N31537, A72001, X59121, R37508, [id number], [id number] COMMENT: ? SPECIAL STAIN: ??PAS ? Pathologist: VERENICE LOPEZ MD Electronic signature ? SMJ SMJ/LM 06/17/13 ?? END OF CHART ? Page: ?? 2 us Historical Provider LAB MICROBIOLOGY - GENERA L ORDERABLES Final Result HISTORICAL RESULTS * Surgical Pathology Report (06/16/2013 12:58 PM SENIOR BENEFITS ANALYST) 06/16/2013 12:5 8 PM SENIOR BENEFITS ANALYST Narrative HISTORICAL RESULTS - 06/17/2013 1:34 PM SENIOR BENEFITS ANALYST [facility] Patient No: [id number] Patient Name: CRISS RENTERIA )[id number] Age: 63 YRS ?? : 1950 Admit Phys: JENNIFER ADAMES MD Case #: [id number] ? Date: 06/16/13 SPECIMEN SOURCE: ? 1. ??Hepatic flex and transverse colon (13+) polyps. ? 2. ??Left colon (3+) polyps. ? 3. ??Esophageal biopsy. CLINICAL INFORMATION AND IMPRESSION: ? GERD with symptoms despite Rx with PPIs/history polyps. ? Multiple polyps. Rule out Viktoria/EOE. ??Colonoscopy. GROSS DESCRIPTION: ? The specimen is submitted in three containers labeled Criss ? Gisselle Renteria. ? Part 1 is labeled hepatic flexure and transverse polyp. ??It ? is submitted in formalin and consists of 15 fragments of myers ? soft tissue that each measure 0.1 cm in maximum dimensions. ? All submitted in cassette 1A. ? Part 2 is labeled polyp left colon. ??It is submitted in ? formalin and consists of three fragments of myers soft tissue ? that each measure 0.1 cm in maximum dimensions. All submitted ? in cassette 2A. ? Part 3 is labeled esophagus biopsy. ??It is submitted in ? formalin and consists of four fragments of white soft tissue ? that each measure 0.1 cm in maximum dimensions. All submitted ? in cassette 3A. ?GK/mm/lm MICROSCOPIC DESCRIPTION: ? Almost all of the hepatic flexure and transverse colon ? fragments show tubular adenoma formation. ??One piece takes a ? mixed tubular and villous pattern. ??No high-grade dysplasia ? is evident. ? The left colon fragments all show tubular adenoma formation. ? The esophagus specimen is intact squamous epithelium. ??A PAS ? stain for fungi shows none. There are no eosinophils. ?? SJ/LM DIAGNOSIS: ? HEPATIC FLEXURE AND TRANSVERSE COLON POLYPS, BIOPSIES ? -TUBULAR ADENOMAS AND TUBULOVILLOUS ADENOMA ? LEFT COLON POLYPS, BIOPSIES ? -TUBULAR ADENOMAS ? ESOPHAGUS, BIOPSY ? -BENIGN SQUAMOUS EPITHELIUM WITHOUT DIAGNOSTIC CHANGES ? [id number], C65383, N80221, I53373, Z22807, G42230, [id number], ? [id number] COMMENT: ? SPECIAL STAIN: ??PAS ? Pathologist: VERENICE LOPEZ MD Electronic ?signature ? SMJ SMJ/LM 06/17/13 us Historical Provider LAB PATHOLOGY ORDERABLES Final Result HISTORICAL RESULTS * (ABNORMAL) Blood glucose (06/16/2013 9:06 AM SENIOR BENEFITS ANALYST) Glucose, bld 210(H) 70 - 110 mg/dl HISTORICAL RESULTS Blood specimen (specimen) 06/16/2013 9:06 AM SENIOR BENEFITS ANALYST Jennifer Adames LAB BLOOD ORDERABLES Fin al Result HISTORICAL RESULTS * Discharge Laboratory Cumulative Report (06/16/2013 12:00 AM SENIOR BENEFITS ANALYST) 06/16/2013 Narrative HISTORICAL RESULTS - 06/17/2013 12:28 AM SENIOR BENEFITS ANALYST Patient No: [id number] ? [facility] Patient Name: CRISS RENTERIA ?[facility] Healthcare Age: 63 YRS ?: 1950 ?Sex:F ?[address] )[id number] ?? Adm Dt: 06/16/2013 ?[place], [place] ??[address] Created: 06/17/2013 ??0028 ?? Pt. Type: U ? Discharge Dt: 06/16/2013 ? Pathologists: Radha Simms MD Admit Attend Dr: JENNIFER ADAMES MD ? GENERAL CHEMISTRY ?Collection Date: ?06/16/13 ?Collection Time: ?0906 ? Ref Range: ?? Units: ??[70-110] ?? MG/DL ?POC GLUCOSE ?210 H Footnotes and Symbols: H = High ?? END OF CHART ? Page: ?? 1 us Historical Provider LAB BLOOD ORDERABLES Jessica reynolds Result HISTORICAL RESULTS * COLONOSCOPY (06/16/2013 12:00 AM SENIOR BENEFITS ANALYST) Anatomical Region Laterality Modality Other Narrative 06/16/2013 12:00 AM SENIOR BENEFITS ANALYST Ordered by an unspecified provider. Procedure Note Provider, MD Sofiya - 06/16/2013 12:00 AM CST PROCEDURE REPORT Patient: CRISS RENTERIA Account: [id number] Room No: : 1950 Patient Type: Attend.: Jennifer Adames M.D. Admit Date: 06/16/2013 Dict.: Jennifer Adames M.D. Disch. Date: 06/16/2013 NAME OF PROCEDURE: Colonoscopy. DATE OF PROCEDURE: 06/16/2013. REFERRING PHYSICIAN: Dr. Clayton Sandoval. PREVIOUS PROCEDURE: Colonoscopy with polyps removed. X-RAYS: None. HISTORY AND PHYSICAL EXAM: The patient is a 63-year-old white femalewith history of colonic polyps as well as strong family history of colorectal cancer. She returns now for repeat endoscopic evaluation of her colon. PHYSICAL EXAMINATION: Physical exam today is that of an obese, whitefemale in no acute distress. She is nonicteric. Her lungs were clear. Heart wasregular without current jugular venous distention or pedal edema. Gastrointestinalwas soft and supple. Extremities showed no calf pain, cords, or edema. PREPROCEDURE DIAGNOSES 1. History of colonic polyps. 2. Strong family history of colorectal cancer. INSTRUMENT USED: Leaf video endoscope. FINDINGS: The colonoscope was introduced and passed to the proximalright colon. Due to angulation fixation as well as tortuosity, it was notpossible to drop down into the proximal right colon and cecal area. This was despite applying counter pressure and rolling the patient in differentpositions. Because of this, polyps removed in the hepatic and transverse colon area.An excess of 13 polyps were removed with several cauterized. The endoscopewas subsequently withdrawn and the adult colonoscope was introduced andpassed. This was also passed to the proximal right colon, however, it was notpossible to advance this safely down into the right colon and fecal area. Becauseof wishes to avoid any injury, it was elected to discontinue the procedure.The colonoscope was subsequently withdrawn. In the left colon at least threepolyps were found. These were all hot biopsied and removed. Several small polypswere also cauterized and destroyed. The remainder of the left rectosigmoidand rectum were normal. Retroflex view of the internal anal area showedmoderate internal hemorrheal tissue. Perianal exam showed no perianal disease andno rectal masses. COMPLICATIONS: None. POSTPROCEDURE DIAGNOSES 1. Multiple colonic polyps with 13 removed in the hepatic flexure and transverse colon area and three removed in the left colon. Severaladditional polyps were cauterized and destroyed. 2. Unable to effect cannulation of the cecum despite multiple maneuversand counter pressure. 3. Withdrawal time of 43 minutes with fair to good prep. 4. Family history of colorectal cancer. 5. History of colonic polyps. POSTPROCEDURE ORDERS 1. Post sedation instructions. 2. High fiber diet. 3. Check polyp pathology. 4. Will discuss with the patient. Repeat colonoscopy either here or with tertiary referral. Further workup or therapy pending completion of findingof all of the above. Jennifer Adames M.D. MARTY/jeanine TD: 06/16/2013 23:08 CC: Clayton Sandoval M.D. Authenticated by Jennifer Adames MD On 06/18/2013 03:13:04 PM us Historical Provider ENDOSCOPY PROCEDURES Jessica l Result documented in this encounter Visit Diagnoses Diagnosis Esophageal reflux Benign neoplasm of colon History of colonic polyps Personal history of colonic polyps Type 2 or unspecified type diabetes mellitus Family history of malignant neoplasm of gastrointestinal tract documented in this encounter Care Teams Printing Engineer Relationship Specialty Start Date End Date Clayton Sandoval MD [address] [address] PCP - General 09/30/12 09/26/16 documented as of this encounter
--- OUTSIDE RECORDS SUMMARY | 2024-07-11 22:44 | XMS_ITS | Encounter Summary ---
Author Organization [facility] Healthcare Address [address] [place] [address] Care Team Providers Care Tailer Off Name Role Phone Clayton Sandoval MD Primary Care Provider + Encounter Details Date Type Department Care Team (Late st Contact Info) Description 09/07/2008 12:01 AM TELETYPE TECHNICIAN - 09/07/2008 11:59 PM TELETYPE TECHNICIAN Hospital [place] [address] [facility] [address] [place] [address] Cough Social History Tobacco Use Types Packs/Day Years Used Date Smoking Tobacco: Never Alcohol Use Standard Drinks/Week Comments No 0 (1 standard drink = 0.6 oz pur e alcohol) Comments Unknown Sex and Gender Information Value Date Recorded Sex Assigned at Not on file Legal Sex Female 11:52 PM TELETYPE TECHNICIAN Gender Identity Not on file Sexual Orientation Not on file documented as of this encounter Medications at Time of Discharge calcium carbonate-vitamin D3 500 mg(1,250mg) -400 unit tablet Take one by mouth two times per day 0 0 08/10/2007 04/14/2024 documented as of this encounter Plan of Treatment Not on file documented as of this encounter Visit Diagnoses Diagnosis Cough documented in this encounter Care Teams Tailer Off Relationship Specialty Start Date End Date Clayton Sandoval MD [address] [facility] [place] [address] PCP - General 09/24/07 09/29/12 documented as of this encounter
--- OUTSIDE RECORDS SUMMARY | 2024-07-11 22:44 | XMS_ITS | Encounter Summary ---
Author Organization [facility] Healthcare Address [address] [place] [address] Care Team Providers Care Mold Capper Name Role Phone Clayton Sandoval MD Primary Care Provider + Encounter Details Date Type Department Care Team (Late st Contact Info) Description 08/04/2008 10:11 AM RAIL OPERATIONS CONTROLLER - 08/04/2008 11:59 PM RAIL OPERATIONS CONTROLLER Hospital [place] [address] [id number] Follow-up examination, following other surgery Social History Tobacco Use Types Packs/Day Years Used Date Smoking Tobacco: Never Alcohol Use Standard Drinks/Week Comments No 0 (1 standard drink = 0.6 oz pur e alcohol) Comments Unknown Sex and Gender Information Value Date Recorded Sex Assigned at Not on file Legal Sex Female 11:52 PM RAIL OPERATIONS CONTROLLER Gender Identity Not on file Sexual Orientation Not on file documented as of this encounter Medications at Time of Discharge calcium carbonate-vitamin D3 500 mg(1,250mg) -400 unit tablet Take one by mouth two times per day 0 0 08/10/2007 04/14/2024 documented as of this encounter Plan of Treatment Not on file documented as of this encounter Visit Diagnoses Diagnosis Follow-up examination, following other surgery documented in this encounter Care Teams Mold Capper Relationship Specialty Start Date End Date Clayton Sandoval MD [address] [place] [address] PCP - General 09/24/07 09/29/12 documented as of this encounter
--- OUTSIDE RECORDS SUMMARY | 2024-07-11 22:44 | XMS_ITS | Encounter Summary ---
Author Organization [facility] Healthcare Address [address] [place] [address] Care Team Providers Care Wafer Slicer Name Role Phone Clayton Sandoval MD Primary Care Provider + Encounter Details Date Type Department Care Team (Late st Contact Info) Description 01/17/2010 10:00 AM CDT - 01/17/2010 11:59 PM CDT Hospital Encounter [place] [address] [facility] [address] [place] [address] Shortness of breath Social History Tobacco Use Types Packs/Day Years Used Date Smoking Tobacco: Never Alcohol Use Standard Drinks/Week Comments No 0 (1 standard drink = 0.6 oz pur e alcohol) Comments Unknown Sex and Gender Information Value Date Recorded Sex Assigned at Not on file Legal Sex Female 11:52 PM ELECTRIC LOCOMOTIVE CRANE OPERATOR Gender Identity Not on file Sexual [...] breath documented in this encounter Care Teams Wafer Slicer Relationship Specialty Start Date End Date Clayton Sandoval MD [address] [facility] [place] [address] PCP - General 09/24/07 09/29/12 documented as of this encounter
--- OUTSIDE RECORDS SUMMARY | 2024-07-11 22:44 | XMS_ITS | Encounter Summary ---
Author Organization [facility] Healthcare Address [address] [place] [address] Care Team Providers Care Registered Nurse Post Partum Name Role Phone Clayton Sandoval MD Primary Care Provider + Encounter Details Date Type Department Care Team (Late st Contact Info) Description 03/08/2009 11:37 AM CDT - 03/08/2009 11:59 PM CDT Hospital En[place] [address] [facility] [address] [place] [address] Obstructive sleep apnea Social History Tobacco Use Types Packs/Day Years Used Date Smoking Tobacco: Never Alcohol Use Standard Drinks/Week Comments No 0 (1 standard drink = 0.6 oz pur e alcohol) Comments Unknown Sex and Gender Information Value Date Recorded Sex Assigned at Not on file Legal Sex Female 11:52 PM SKIN DRIER Gender Identity Not on file Sexual Orientation Not on file documented as of this encounter Medications at Time of Discharge calcium carbonate-vitamin D3 500 mg(1,250mg) -400 unit tablet Take one by mouth two times per day 0 0 08/10/2007 04/14/2024 documented as of this encounter Plan of Treatment Not on file documented as of this encounter Visit Diagnoses Diagnosis Obstructive sleep apnea Obstructive sleep apnea (adult) (pediatric) documented in this encounter Care Teams Registered Nurse Post Partum Relationship Specialty Start Date End Date Clayton Sandoval MD [address] [facility] [place] [address] PCP - General 09/24/07 09/29/12 documented as of this encounter
--- OUTSIDE RECORDS SUMMARY | 2024-07-11 22:44 | XMS_ITS | Encounter Summary ---
Author Organization [facility] Healthcare Address [address] [place] [address] Care Team Providers Care Cis Coordinator Name Role Phone Clayton Sandoval MD Primary Care Provider + Encounter Details Date Type Department Care Team (Late st Contact Info) Description 11/18/2009 6:34 PM CDT - 11/18/2009 7:35 PM CDT Hospital Encounter [facility] CLINCONQuang Gamino MD [address] [place] [address] Clayton Sandoval MD [address] [place] [address] Acute chemical conjunctivitis; Drug or medicinal substance causing adverse effect in therapeutic use Social History Tobacco Use Types Packs/Day Years Used Date Smoking Tobacco: Never Alcohol Use Standard Drinks/Week Comments No 0 (1 standard drink = 0.6 oz pur e alcohol) Comments Unknown Sex and Gender Information Value Date Recorded Sex Assigned at Not on file Legal Sex Female 11:52 PM GROUP WORKER Gender Identity Not on file Sexual Orientation Not on file documented as of this encounter Medications at Time of Discharge calcium carbonate-vitamin D3 500 mg(1,250mg) -400 unit tablet Take one by mouth two times per day 0 0 08/10/2007 04/14/2024 documented as of this encounter Plan of Treatment Not on file documented as of this encounter Visit Diagnoses Diagnosis Acute chemical conjunctivitis Drug or medicinal substance causing adverse effect in therapeutic use Unspecified adverse effect of unspecified drug, medicinal and biological substance documented in this encounter Care Teams Cis Coordinator Relationship Specialty Start Date End Date Clayton Sandoval MD [address] [place] [place] [address] PCP - General 09/24/07 09/29/12 documented as of this encounter
--- OUTSIDE RECORDS SUMMARY | 2024-07-11 22:44 | XMS_ITS | Encounter Summary ---
Author Organization [facility] Healthcare Address [address] [place] [address] Care Team Providers Care Enamel Dipper Name Role Phone Clayton Sandoval MD Primary Care Provider + Encounter Details Date Type Department Care Team (Late st Contact Info) Description 01/25/2009 12:01 AM CDT - 01/25/2009 11:59 PM CDT Hospital [place] [address] [facility] [address] [place] [address] Allergic rhinitis Social History Tobacco Use Types Packs/Day Years Used Date Smoking Tobacco: Never Alcohol Use Standard Drinks/Week Comments No 0 (1 standard drink = 0.6 oz pur e alcohol) Comments Unknown Sex and Gender Information Value Date Recorded Sex Assigned at Not on file Legal Sex Female 11:52 PM CYANIDE FURNACE OPERATOR Gender Identity Not on file Sexual Orientation Not on file documented as of this encounter Medications at Time of Discharge calcium carbonate-vitamin D3 500 mg(1,250mg) -400 unit tablet Take one by mouth two times per day 0 0 08/10/2007 04/14/2024 documented as of this encounter Plan of Treatment Not on file documented as of this encounter Visit Diagnoses Diagnosis Allergic rhinitis Allergic rhinitis, cause unspecified documented in this encounter Care Teams Enamel Dipper Relationship Specialty Start Date End Date Clayton Sandoval MD [address] [place] [address] PCP - General 09/24/07 09/29/12 documented as of this encounter
--- OUTSIDE RECORDS SUMMARY | 2024-07-11 22:44 | XMS_ITS | Encounter Summary ---
Author Organization [facility] Healthcare Address [address] [place] [address] Care Team Providers Care Make Up Man Name Role Phone Clayton Sandoval MD Primary Care Provider + Encounter Details Date Type Department Care Team (Late st Contact Info) Description 04/25/2008 8:51 AM CDT - 04/25/2008 11:59 PM CDT Hospital Encounter [facility] CLINCONV Clayton Sandoval MD [address] [facility] [place] [address] Social History Tobacco Use Types Packs/Day Years Used Date Smoking Tobacco: Never Alcohol Use Standard Drinks/Week Comments No 0 (1 standard drink = 0.6 oz pur e alcohol) Comments Unknown Sex and Gender Information Value Date Recorded Sex Assigned at Not on file Legal Sex Female 11:52 PM DIAL REFINISHER Gender Identity Not on file Sexual Orientation [...] on filedocumented in this encounter Care Teams Make Up Man Relationship Specialty Start Date End Date Clayton Sandoval MD [address] [address] PCP - General 09/24/07 09/29/12 documented as of this encounter
--- OUTSIDE RECORDS SUMMARY | 2024-07-11 22:44 | XMS_ITS | Encounter Summary ---
Author Organization [facility] Healthcare Address [address] [place] [address] Care Team Providers Care Banking Supervisor Name Role Phone Clayton Sandoval MD Primary Care Provider + Encounter Details Date Type Department Care Team (Late st Contact Info) Description 04/20/2008 12:01 AM CDT - 04/20/2008 11:59 PM CDT Hospital Encounter [facility] NIESHACONV Clayton Sandoval MD [address] [place] [address] Social History Tobacco Use Types Packs/Day Years Used Date Smoking Tobacco: Never Alcohol Use Standard Drinks/Week Comments No 0 (1 standard drink = 0.6 oz pur e alcohol) Comments Unknown Sex and Gender Information Value Date Recorded Sex Assigned at Not on file Legal Sex Female 11:52 PM APPRENTICE PAINTER HAND Gender Identity Not on file Sexual [...] on filedocumented in this encounter Care Teams Banking Supervisor Relationship Specialty Start Date End Date Clayton Sandoval MD [address] [place] [address] PCP - General 09/24/07 09/29/12 documented as of this encounter
--- OUTSIDE RECORDS SUMMARY | 2024-07-11 22:44 | XMS_ITS | Encounter Summary ---
Author Organization [facility] Healthcare Address [address] [place] [address] Care Team Providers Care Senior Ux Developer Name Role Phone Clayton Sandoval MD Primary Care Provider + Encounter Details Date Type Department Care Team (Late st Contact Info) Description 05/31/2009 12:01 AM PIPE PROCESSOR - 05/31/2009 11:59 PM PIPE PROCESSOR Hospital Encounter [facility] [place]INCON[place], [place] [address] [facility] [address] [place] [address] Sarcoidosis Social History Tobacco Use Types Packs/Day Years Used Date Smoking Tobacco: Never Alcohol Use Standard Drinks/Week Comments No 0 (1 standard drink = 0.6 oz pur e alcohol) Comments Unknown Sex and Gender Information Value Date Recorded Sex Assigned at Not on file Legal Sex Female 11:52 PM PIPE PROCESSOR Gender Identity Not on file Sexual Orientation [...] Sarcoidosis documented in this encounter Care Teams Senior Ux Developer Relationship Specialty Start Date End Date Clayton Sandoval MD [address] [facility] [place] [address] PCP - General 09/24/07 09/29/12 documented as of this encounter
--- OUTSIDE RECORDS SUMMARY | 2024-07-11 22:44 | XMS_ITS | Encounter Summary ---
Author Organization [facility] Healthcare Address [address] [place] [address] Care Team Providers Care Chips Screen Tender Name Role Phone Clayton Sandoval MD Primary Care Provider + Encounter Details Date Type Department Care Team (Late st Contact Info) Description 03/08/2009 10:28 AM CDT - 03/08/2009 11:59 PM CDT Hospital Encounter [place] [address] [facility] [address] [place] [address] Obstructive sleep apnea Social History Tobacco Use Types Packs/Day Years Used Date Smoking Tobacco: Never Alcohol Use Standard Drinks/Week Comments No 0 (1 standard drink = 0.6 oz pur e alcohol) Comments Unknown Sex and Gender Information Value Date Recorded Sex Assigned at Not on file Legal Sex Female 11:52 PM SHIPPING WEIGHER Gender Identity Not on file Sexual Orientation [...] (pediatric) documented in this encounter Care Teams Chips Screen Tender Relationship Specialty Start Date End Date Clayton Sandoval MD [address] [facility] [place] [address] PCP - General 09/24/07 09/29/12 documented as of this encounter
--- OUTSIDE RECORDS SUMMARY | 2024-07-11 22:57 | XMS_ITS | Clinical Summary ---
Author Organization [facility] [address] [facility] Address [address] [place] [address] Care Team Providers Care Engineer Assistant Name Role Phone Clayton Sandoval MD Primary Care Provider [phone] Allergies No known active allergies Medications Medication Sig Dispensed Refills Start Date End Date Status albuterol HFA 90 mcg inhaler Take 2 Puffs by inhalation. Active aspirin-acetaminoph en-caffeine (EXCEDRIN EXTRA STRENGTH) 250-250-65 mg Tablet Take 1 Tablet by mouth. Active fluticasone (FLONASE) 50 mcg/spray [place], Suspension inhale 2 spray by Intranasal route every day in each nostril 05/26/2012 Active gabapentin (NEURONTIN) 300 mg capsule 300 mg. 07/21/2015 Active insulin glargine (LANTUS) 100 unit/mL pen syringe Inject 44 Units by subcutaneous injection. 03/31/2017 Active irbesartan-hydroCHL OROthiazide (AVALIDE) 300-12.5 mg tablet TAKE ONE TABLET BY MOUTH ONCE DAILY 08/18/2013 Active lancets (MICROLET LANCET) test by fingerstick route 3 times daily 07/26/2015 Active metFORMIN (GLUCOPHAGE) 500 mg tablet 500 mg. 06/24/2014 Active montelukast (SINGULAIR) 10 mg tablet 10 mg. 09/18/2016 Active pantoprazole (PROTONIX) 40 mg Tablet, Delayed Release (E.C.) 40 mg. 09/07/2014 Active Insulin Antimony, Disposable, 31 gauge x 3/16 Needle 1 needle as directed 12/23/2016 Acti ve traMADol (ULTRAM) 50 mg tablet 50 mg. 06/21/2013 Active blood sugar diagnostic (CONTOUR NEXT TEST STRIPS) Strip USE ONE STRIP IN METER THREE TIMES A DAY 07/04/2014 Active Blood-Glucose Meter (CONTOUR NEXT USB METER) test as directed 07/04/2014 Active amLODIPine (NORVASC) 10 mg tablet Take 10 mg by mouth daily. Active cloNIDine HCl (CATAPRES) 0.1 mg tablet Take 0.1 mg by mouth. Act ziyad simvastatin (ZOCOR) 40 mg tablet Take 40 mg by mouth late in the day. Active insulin aspart (NOVOLOG FLEXPEN U-100 INSULIN SUBCUT) Inject by subcutaneous injection. Active fluticasone (FLOVENT HFA) 110 mcg/actuation HFA Aerosol Inhaler Take by inhalation 2 times daily. Active calcium-vitamin D3 (CALTRATE 600+D) 600 mg(1,500mg) -200 unit Tablet Take by mouth. Acti ve alendronate (FOSAMAX) 70 mg tablet 07/21/2018 Active Active Problems Problem Noted Date Diagnosed Date Lumbar stenosis without neurogenic claudication 10/06/2018 Spondylolisthesis of lumbar region 10/06/2018 DDD (degenerative disc disease), lumbar 05/19/20 18 Family History Medical History Relation Name Comments Cancer Father Diabetes Mother Relation Name Status Comments Father Mother Social History Tobacco Use Types Packs/Day Years Used Date Smoking Tobacco: Never Smokeless Tobacco: Never Alcohol Use Standard Drinks/Week Comments Yes 0 (1 standard drink = 0.6 oz pur e alcohol) rarely Sex and Gender Information Value Date Recorded Sex Assigned at Not on file Gender Identity Not on file Sexual Orientation Not on file Last Filed Vital Signs Vital Sign Reading Time Taken Comments Blood Pressure - - Pulse 105 09/18/2018 9:31 AM NURSE'S ASSISTANT Temperature 36.8 ??C (98.2 ??F) 09/18/2018 9:31 AM CS T Respiratory Rate 18 09/18/2018 9:31 AM NURSE'S ASSISTANT Oxygen Saturation 95% 09/18/2018 9:31 AM NURSE'S ASSISTANT Inhaled Oxygen Concentration - - Weight 111.6 kg (246 lb) 10/05/2018 2:20 PM CDT Height 168.9 cm (5' 6.5 ) 10/05/2018 2:20 PM CDT Body Mass Index 39.11 10/05/2018 2:20 PM CDT Plan of Treatment Health Maintenance Due Date Last Done Comments DIABETES ANNUAL FOOT EXAM 1967 DIABETES ANNUAL RETINAL EXAM 1967 DIABETES HBA1C Q 6 MONTHS 1967 DIABETES MICROALBUMIN ANNUAL SCREEN 1967 LDL CHOLESTEROL ANNUAL 1967 DTAP/TDAP/TD VACCINES (1 - Tdap) 1968 FIT-DNA Q 3 years 1994 FIT/FOBT Q 1 year 1994 Flex Sig/CT Colonography Q 5 years 1994 ZOSTER VACCINE (1 of 2) 1999 OSTEOPOROSIS SCREENING 2014 INFLUENZA VACCINE (#1) 2024 6, 04/08/2015, 03/16/2015, Additional history exists RSV VACCINE (60+ or ) (1 - 1-dose 75+ series) 2024 COLORECTAL SCREENING 09/28/2028 09/28/2018 Colorectal Cancer Screening 09/28/2028 PNEUMOCOCCAL VACCINE 65+ YEARS Completed 12/27/2016 , 03/29/2015 Care Teams Engineer Assistant Relationship Specialty Start Date End Date Clayton Sandoval MD [address] [facility] [place] [id number] PCP - General Internal Medicine 04/22/18
--- OUTSIDE RECORDS SUMMARY | 2024-07-11 22:57 | XMS_ITS | Encounter Summary ---
Author Organization [facility] Address [address] [place] [address] Care Team Providers Care Gyn Name Role Phone Clayton Sandoval MD Primary Care Provider [phone] Reason for Visit * Reason Comments Follow Up Here to review her m yelogram and CT scan * Eval and Treat (Routine) - Closed Specialty Diagnoses / Procedures Referred By Contac t Referred To Contact Neurosurgery Diagnoses Low back pain LOW BACK PAIN Procedures OFFICE VISIT NEW PATIENT Clayton Sandoval MD [address] [place] [address] Srinath Tovar MD [address] [place] [address] Referral ID Status Reason Start Date Expiration Date Visits Re quested Visits Authorized [id number] Closed 04/24/2018 2019 12 12 Encounter Details Date Type Department Care Team (Latest Contact Info) Description 10/05/2018 1:15 PM CDT Office Visit [facility] Neurosurgery - [address] [facility] [address] [place] [address] Srinath Tovar MD [address] [place] [address] DDD (degenerative disc disease), lumbar (Primary Dx); Lumbar stenosis without neurogenic claudication; Spondylolisthesis of lumbar region Social History Tobacco Use Types Packs/Day [...] - Inhaled Oxygen Concentration - - Weight 111.6 kg (246 lb) 10/05/2018 2:20 PM CDT Height 168.9 cm (5' 6.5 ) 10/05/2018 2:20 PM CDT Body Mass Index 39.11 10/05/2018 2:20 PM CDT documented in this encounter Progress Notes * Srinath Tovar MD - 10/05/2018 1:19 PM CDT Neurosurgery Established Patient Criss Ly 68 y.o. female 1950 [id number] Referred by: Clayton Sandoval MD Chief Complaint Patient presents with ??? Follow Up Here to review her myelogram and CT scan HPI: This is a 68 y.o. female who presents with continued severe lower back pain. She did not respond to her conservative program including aquatics. She did mention that walking on the treadmill andthe water was something that she enjoyed. However, as soon as she left the water environment the pain often returned. Past Medical History: Diagnosis Date ??? Diabetes mellitus ??? HTN (hypertension) ??? Hyperlipidemia Past Surgical History: Procedure Laterality Date ??? HX BREAST REDUCTION ??? HX HIP REPLACEMENT ??? HX KNEE ARTHROPLASTY 2006 LEFT ??? HX KNEE REPLACEMENT 2001 RIGHT ??? HX NECK SURGERY ??? HX SPINAL SURGERY LUMBAR MICRODECOMPRESSION 2006 Current Outpatient Prescriptions: ??? alendronate (FOSAMAX) 70 mg tablet, , Disp: , Rfl: ??? albuterol HFA 90 mcg inhaler, Take 2 Puffs by inhalation., Disp: , Rfl: ??? mnznlec-imgskbatjrmqe-nxeqcdsq (EXCEDRIN EXTRA STRENGTH) 250-250-65 mg Tablet, Take 1 Tablet bymouth., Disp: , Rfl: ??? fluticasone (FLONASE) 50 mcg/spray [place], Suspension, inhale 2 spray by Intranasal route every day in each nostril, Disp: , Rfl: ??? gabapentin (NEURONTIN) 300 mg capsule, 300 mg., Disp: , Rfl: ??? insulin glargine (LANTUS) 100 unit/mL pen syringe, Inject 44 Units by subcutaneous injection., Disp: , Rfl: ??? irbesartan-hydroCHLOROthiazide (AVALIDE) 300-12.5 mg tablet, TAKE ONE TABLET BY MOUTH ONCE DAILY, Disp: , Rfl: ??? lancets (MICROLET LANCET), test by fingerstick route 3 times daily, Disp: , Rfl: ??? metFORMIN (GLUCOPHAGE) 500 mg tablet, 500 mg., Disp: , Rfl: ??? montelukast (SINGULAIR) 10 mg tablet, 10 mg., Disp: , Rfl: ??? pantoprazole (PROTONIX) 40 mg Tablet, Delayed Release (E.C.), 40 mg., Disp: , Rfl: ??? Insulin [place], Disposable, 31 gauge x 3/16 Needle, 1 needle as directed, Disp: , Rfl: ??? traMADol (ULTRAM) 50 mg tablet, 50 mg., Disp: , Rfl: ??? blood sugar diagnostic (CONTOUR NEXT TEST STRIPS) Strip, USE ONE STRIP IN METER THREE TIMES A DAY, Disp: , Rfl: ??? Blood-Glucose Meter (CONTOUR NEXT USB METER), test as directed, Disp: , Rfl: ??? amLODIPine (NORVASC) 10 mg tablet, Take 10 mg by mouth daily., Disp: , Rfl: ??? cloNIDine HCl (CATAPRES) 0.1 mg tablet, Take 0.1 mg by mouth., Disp: , Rfl: ??? simvastatin (ZOCOR) 40 mg tablet, Take 40 mg by mouth late in the day., Disp: , Rfl: ??? insulin aspart (NOVOLOG FLEXPEN U-100 INSULIN SUBCUT), Inject by subcutaneous injection., Disp:, Rfl: ??? fluticasone (FLOVENT HFA) 110 mcg/actuation HFA Aerosol Inhaler, Take by inhalation 2 times daily., Disp: , Rfl: ??? calcium-vitamin D3 (CALTRATE 600+D) 600 mg(1,500mg) -200 unit Tablet, Take by mouth., Disp: , Rfl: No Known Allergies Social History Substance Use Topics ??? Smoking status: Never Smoker ??? Smokeless tobacco: Never Used ??? Alcohol use Yes Comment: rarely Family History Problem Relation Age of Onset ??? Diabetes Mother ??? Cancer Father Review of Systems Review of Systems Musculoskeletal: Positive for back pain. Neurological: Negative. Objective: Ht 5' 6.5 (1.689 m) Wt 111.6 kg (246 lb) BMI 39.11 kg/m?? Physical Examination: General: Const: Well developd, very obese, appears stated age, and in no acute distress. Psych: The patient is awake, alert, and oriented x 3. Appropriate mood and affect. Eyes: Normal conjunctiva. Skin: Warm, dry, and well perfused. Neck: Supple. Trachea at midline. Lungs: Normal respiratory effort. Breathing is regular and non-labored Musculoskeletal: Upper Ext: Normal ROM for age Lower Ext: Normal ROM for age; negative SLR Neck: FROM for age, without pain Back: FROM for age, without pain. Alignment: Normal cervical, thoracic, and lumbar alignment Neurological: Awake, alert and oriented x 3. Mental status overall intact. CN II: intact to confrontation. CN III, IV, and : intact. CN V: intact sensation on face and jaw movement. CN VII: face symmetric. CN VIII: hearing intact. CNIX and X: gag normal CN Xl: intact CN Xll: tongue normal. Sensation: Pain and tactile intact. Motor: full strength throughout Reflexes: wnl. Babinski: not present. No clonus. Cerebellar: Gait normal. Negative [facility] Imaging/Tests Review I reviewed in detail the patient's CT myelogram. There is some element of stenosis at the L2-3 level. In addition, she has a grade 1 spondylolisthesis at the L4-5 level. Assessment: ICD-10-CM ICD-9-CM 1. DDD (degenerative disc disease), lumbar M51.36 722.52 2. Lumbar stenosis without neurogenic claudication M48.061 724.02 3. Spondylolisthesis of lumbar region M43.16 738.4 I discussed the findings in detail with the patient and her sister. We will try further conservative measures, including a facet block and rhizolysis, in addition to a home muscle stimulator/TENS unit. I encouraged the patient to continue exercise as much as possible. Plan: Patient was scheduled for a facet block and rhizolysis at the L4-5 and L5-S1 levels, and a home muscle stimulation/TENS unit. Preventative Medicine: She is not a tobacco user. Abnormal high BMI: Referral to primary care provider for follow-up on BMI. (Normal BMI range: 18 & older: > or = 18.5 and < 25) Education was provided using Teach Back. Patient and family understand diagnosis, proposed treatment, and instructions clearly. documented in this encounter Plan of Treatment Not on file documented as of this encounter Visit Diagnoses Diagnosis DDD (degenerative disc disease), lumbar- Primary Degeneration of lumbar or lumbosacral intervertebral disc Lumbar stenosis without neurogenic claudication Spinal stenosis, lumbar region, without neurogenic claudication Spondylolisthesis of lumbar region Acquired spondylolisthesis documented in this encounter Care Teams Gyn Relationship Specialty Start Date End Date Clayton Sandoval MD [address] [place] [address] PCP - General Internal Medicine 04/22/18 documented as of this encounter
--- OUTSIDE RECORDS SUMMARY | 2024-07-11 22:58 | XMS_ITS | Encounter Summary ---
Author Organization [facility] Address [address] [place] [address] Care Team Providers Care Pocket Marker Name Role Phone Clayton Sandoval MD Primary Care Provider [phone] Encounter Details Date Type Department Care Team (Late st Contact Info) Description 09/15/2018 Abstract [facility] Neurosurgery - [address] [facility] [address] [place] [address] Provider, Abstract NO ADDRESS ON FILE Social History Tobacco Use Types Packs/Day Years [...] on filedocumented in this encounter Care Teams Pocket Marker Relationship Specialty Start Date End Date Clayton Sandoval MD [facility] [facility] [place] [id number] PCP - General Internal Medicine 04/22/18 documented as of this encounter
--- OUTSIDE RECORDS SUMMARY | 2024-07-11 22:58 | XMS_ITS | Encounter Summary ---
Author Organization [facility] Address [address] [place] [address] Phone Care Team Providers Care Collarette Separator Name Role Phone Lalito England Primary Care Provider [phone] Encounter Details Date Type Department Care Team (Late st Contact Info) Description 01/07/2022 Documentation Only [facility] [address] [place] [address] Lizbet Do MA [address] [place] [address] Social History Tobacco Use Types Packs/Day Years Used Date Smoking Tobacco: Never Smokeless Tobacco: Never Alcohol Use Standard Drinks/Week Comments Not Currently 0 (1 standard drink = 0.6 oz pur e alcohol) Monthy or less Comments Unknown Sex and Gender Information Value Date Recorded Sex Assigned at Not on file Legal Sex Female 8:45 PM EDT Gender Identity Not on file Sexual Orientation Not on file documented as of this encounter Plan of Treatment Upcoming Encounters Date Type Department Care Team (Late st Contact Info) Description 09/20/2024 4:45 PM CDT Office Visit [facility] [address] [place] [address] Osmin Paige MD [address] [place] [address] documented as of this encounter Visit Diagnoses Not on filedocumented in this encounter Care Teams Collarette Separator Relationship Specialty Start Date End Date Nanette Englandig [address] [place] [address] PCP - General Internal Medicine 06/04/21 documented as of this encounter
--- OUTSIDE RECORDS SUMMARY | 2024-07-11 22:58 | XMS_ITS | Encounter Summary ---
Author Organization [facility] Address [address] [place] [address] Phone Care Team Providers Care Sanitation Worker Hosing Machinery Name Role Phone Lalito [place] Primary Care Provider [phone] Encounter Details Date Type Department Care Team (Latest Contact Info) Description 07/09/2021 Orders Only [facility] [address] [place] [address] Osmin Paige MD [address] [place] [address] Hypertension; Type 2 diabetes mellitus with diabetic nephropathy (HCC); Secondary hyperparathyroidism of renal origin (HCC); Anemia in chronic kidney disease; Iron deficiency anemia, not otherwise specified; Hypertensive chronic kidney disease, unspecified, with chronic kidney disease stage I through stage IV, or unspecified; Type 2 diabetes mellitus with diabetic chronic kidney disease (HCC); Stage 3b chronic kidney disease (HCC) Social History Tobacco Use Types Packs/Day [...] Exposure Response Date Recorded In the last month, have you been in contact with someone who was confirmed or suspected to have Coronavirus / COVID-19? No / Unsure 07/04/2021 3:23 PM EST documented as of this encounter Plan of Treatment Upcoming Encounters Date Type Department Care Team (Late st Contact Info) Description 09/20/2024 4:45 PM CDT Office Visit [facility] [address] [place] [address] Osmin Paige MD [address] [place] [address] documented as of this encounter Visit Diagnoses Diagnosis Hypertension Type 2 diabetes mellitus with diabetic nephropathy (HCC) Secondary hyperparathyroidism of renal origin (HCC) Secondary hyperparathyroidism of renal origin Anemia in chronic kidney disease Iron deficiency anemia, not otherwise specified Hypertensive chronic kidney disease, unspecified, with chronic kidney disease stage I through stage IV, or unspecified Type 2 diabetes mellitus with diabetic chronic kidney disease (HCC) Stage 3b chronic kidney disease (HCC) documented in this encounter Care Teams Sanitation Worker Hosing Machinery Relationship Specialty Start Date End Date Lalito [place] [address] [place] [address] PCP - General Internal Medicine 06/04/21 documented as of this encounter
--- OUTSIDE RECORDS SUMMARY | 2024-07-11 22:58 | XMS_ITS | Encounter Summary ---
Author Organization [facility] Address [address] [place] [address] Care Team Providers Care Bias Cutting Machine Operator Vertical Name Role Phone Lalito [place] Primary Care Provider [phone] Encounter Details Date Type Department Care Team (Latest Contact Info) Description 07/04/2021 Travel Social History Tobacco Use Types Packs/Day [...] Description 09/20/2024 4:45 PM CDT Office Visit [facility] [address] [place] [address] Osmin Paige MD [address] [facility] [place] [address] documented as of this encounter Visit Diagnoses Not on filedocumented in this encounter Care Teams Bias Cutting Machine Operator Vertical Relationship Specialty Start Date End Date Lalito [place] [address] [place] [address] PCP - General Internal Medicine 06/04/21 documented as of this encounter
--- OUTSIDE RECORDS SUMMARY | 2024-07-11 22:58 | XMS_ITS | Encounter Summary ---
Author Organization [facility] Address [address] [place] [address] Phone Care Team Providers Care Territory Sales Consultant Name Role Phone Lalito England Primary Care Provider [phone] Encounter Details Date Type Department Care Team (Late st Contact Info) Description 10/02/2021 Documentation Only [facility] [address] [place] [address] Josie Pagan [address] [facility] [place] [address] Social History Tobacco Use Types [...] Description 09/20/2024 4:45 PM CDT Office Visit [facility] [address] [place] [address] Osmin Paige MD [address] [facility] [place] [address] documented as of this encounter Visit Diagnoses Not on filedocumented in this encounter Care Teams Territory Sales Consultant Relationship Specialty Start Date End Date Nanette Englandig [address] [place] [address] PCP - General Internal Medicine 06/04/21 documented as of this encounter
--- OUTSIDE RECORDS SUMMARY | 2024-07-11 22:58 | XMS_ITS | Encounter Summary ---
Author Organization [facility] Address [address] [place] [address] Phone Care Team Providers Care Student Ambassador Name Role Phone Lalito England Primary Care Provider [phone] Encounter Details Date Type Department Care Team (Latest Contact Info) Description 07/06/2021 Orders Only [facility] [address] [place] [address] Osmin Paige MD [address] [place] [address] Hypertension; Type 2 diabetes mellitus [...] Description 09/20/2024 4:45 PM CDT Office Visit [facility] [address] [place] [address] Osmin Paige MD [address] [place] [address] documented as of this encounter [...] (HCC) documented in this encounter Care Teams Student Ambassador Relationship Specialty Start Date End Date Lalito England [address] [place] [address] PCP - General Internal Medicine 06/04/21 documented as of this encounter
--- OUTSIDE RECORDS SUMMARY | 2024-07-11 22:58 | XMS_ITS | Clinical Summary ---
Author Organization [facility] Address [address] [place] [address] Care Team Providers Care Radiographer Name Role Phone Lalito England Primary Care Provider [phone] Allergies Active Allergy Reactions Criticality Noted Date Comments Hydrocodone Other (see comments) 03/12/2021 Migraines Medications * This document contains information received from the source organization and may not represent a complete record from that organization. albuterol HFA (PROVENTIL HFA;VENTOLIN HFA) 108 (90 Base) MCG/ACT inhaler Inhale 2 puffs Activ e alendronate (FOSAMAX) 70 MG tablet Take 70 mg by mouth Take in the morning with a full glass of water, on an empty stomach, and do not take anything else by mouth or lie down for the next 30 min. Active aspirin (ST FLORA) 81 MG EC tablet Take 81 mg by mouth 1 (one) time each day Active glucose blood (Contour Next Test) test strip 1 each by Other route if needed Use as instructed Active calcium carbonate-vitam in D (OSCAL-500) 500-200 MG-UNIT per tablet Take 1 tablet by mouth 1 (one) time each day Active cloNIDine (CATAPRES) 0.1 MG tablet Take 0.1 mg by mouth 1 (one) time each day Takes 1/2 tab BID Active fluticasone (FLONASE) 50 MCG/ACT nasal spray Administer 2 sprays into each nostril 2 (two) times a day Active furosemide (LASIX) 20 MG tablet Take 20 mg by mouth 1 (one) time each day Active montelukast (SINGULAIR) 10 MG tablet Take 10 mg by mouth every night Active insulin aspart (NovoLOG PENFILL) 100 UNIT/ML injection Inject 37 Units under the skin 3 (three) times a day before meals Active pantoprazole (PROTONIX) 40 MG EC tablet Take 40 mg by mouth 2 (two) times a day Do not crush, chew, or split. Active Insulin Pen Needle (Pen Scuddy 09/26 ) 31G X 5 MM misc Acti ve simvastatin (ZOCOR) 40 MG tablet Take 40 mg by mouth every night Active traMADol (ULTRAM) 50 MG tablet Take 50 mg by mouth 4 times a day Takes 5-6 tablets every day Active gabapentin (NEURONTIN) 300 MG capsule Take 300 mg by mouth 1 (one) time each day Active insulin glargine (LANTUS) 100 UNIT/ML injection Inject 53 Units under the skin 1 (one) time each day Active cyclobenzaprine (FLEXERIL) 10 MG tablet Take 10 mg by mouth every night 2 Active Active Problems No known active problems Family History Medical History Relation Comments Cancer Brother Diabetes Brother Hypertension Brother Stroke Brother Cancer Father Heart disease Father Heart failure Father Diabetes Mother Hypertension Mother Relation Status Comments Brother Alive Father Mother Social History Tobacco Use [...] Sign Reading Time Taken Comments Blood Pressure 102/53 06/04/2021 12:13 PM [employer] Pulse 88 06/04/2021 12:13 PM [employer] Temperature 36.4 ??C (97.6 ??F) 06/04/2021 12:[address] Respiratory Rate - - Oxygen Saturation 92% 06/04/2021 12:13 PM [employer] Inhaled Oxygen Concentration - - Weight 111 kg (244 lb 8 oz) 06/04/2021 12:13 PM [employer] Height 167.6 cm (5' 6 ) 06/04/2021 12:13 PM [employer] Body Mass Index 39.46 06/04/2021 12:13 PM [employer] Plan of Treatment Upcoming Encounters Date Type Department Care Team (Late st Contact Info) Description 09/20/2024 4:45 PM CDT Office Visit [facility] [address] [place] [address] Osmin Paige MD [address] [place] [address] Health Maintenance Due Date Last Done Comments Breast Cancer Screening 1950 Colorectal Cancer Screening: Annual FOBT 1998 Colorectal Cancer Screening: Sigmoidoscopy 1998 Diabetes: Ophthalmology Exam 04/11/2021 Diabetes: Pedal Pulse Checked 04/11/2021 Diabetes: Sensory Foot Exam 04/11/2021 Diabetes: Visual Foot Exam 04/11/2021 Diabetes: Hemoglobin A1C 02/14/2024 024, 05/19/2023, 09/28/2021, Additional history exists Influenza Vaccine (#1) 2024 2, 06/25/2021, 08/02/2019, Additional history exists Colorectal Cancer Screening: Colonoscopy 09/28/2028 09/28/2018 Hepatitis B Vaccine Aged Out 10/27/2008 No longe r eligible based on patient's age to complete this topic Pneumococcal Vaccine: 65+ Years Completed 12/27/2016, 04/08/2015, 03/29/2015, Additional history exists Procedures Procedure Name Priority Date/Time Associated Diagnosis Comments HEMOGLOBIN A1C Routine 05/19/2023 from Last 3 Months or Most Recently Relevant to Health Maintenance Results * (ABNORMAL) Hemoglobin A1c (05/19/2023) Hemoglobin A1C 9.8(A) 4.0 - 5.6 Blood (Blood, Venous) 05/19/2023 us Historical Provider LAB BLOOD ORDERABLES Jessica l Result from Last 3 Months or Most Recently Relevant to Health Maintenance Insurance [facility] Care Teams Radiographer Relationship Specialty Start Date End Date Lalito England [address] [place] [address] PCP - General Internal Medicine 06/04/21
--- OUTSIDE RECORDS SUMMARY | 2024-07-11 22:58 | XMS_ITS | Encounter Summary ---
Author Organization [facility] Address [address] [facility] [place] [address] Phone Care Team Providers Care Bench Boring Machine Operator Name Role Phone Lalito England Primary Care Provider [phone] Encounter Details Date Type Department Care Team (Late st Contact Info) Description 05/28/2023 Documentation Only [facility] [address] [facility] [address] [place] [address] Josie Pagan [address] [facility] [address] [place] [address] Social History Tobacco Use Types [...] Description 09/20/2024 4:45 PM CDT Office Visit [facility] [address] [facility] [address] [place] [address] Osmin Paige MD [address] [facility] [address] [place] [address] documented as of this encounter Procedures Procedure Name Priority Date/Time Associated Diagnosis Comments HEMOGLOBIN A1C Routine 05/19/2023 COMPREHENSIVE METABOLIC PANEL Routine 05/19/2023 documented in this encounter Results * (ABNORMAL) Hemoglobin A1c (05/19/2023) Hemoglobin A1C 9.8(A) 4.0 - 5.6 Blood (Blood, Venous) 05/19/2023 Historical Provider LAB BLOOD ORDERABLES Jessica l Result * (ABNORMAL) Comprehensive Metabolic Panel (05/19/2023) Glucose 165 70 - 199 mg/dL BUN 25 6 - 25 mg/dL Creatinine 1.55(A) 0.60 - 1.10 mg/dL Sodium 136 135 - 145 mEq/L Potassium 4.3 3.3 - 4.9 mEq/L Chloride 95(A) 97 - 110 Carbon Dioxide 27 22 - 32 mmol/L Calcium 10.0 8.5 - 10.3 mg/dL Albumin (Blood) 4.0 3.5 - 5.0 g/dL AST (SGOT) 31 10 - 45 U/L ALT (SGPT) 21 7 - 45 U/L Alkaline Phosphatase 75 40 - 130 U/L Total Bilirubin 0.4 0.1 - 1.2 MG/DL Total Protein, Serum 7.3 6.5 - 8.5 Anion Gap 14 2 - 15 Blood (Blood, Venous) 05/19/2023 Historical Provider LAB BLOOD ORDERABLES Jessica l Result documented in this encounter Visit Diagnoses Not on filedocumented in this encounter Care Teams Bench Boring Machine Operator Relationship Specialty Start Date End [place] [place] [address] PCP - General Internal Medicine 06/04/21 documented as of this encounter
--- OUTSIDE RECORDS SUMMARY | 2024-07-11 22:58 | XMS_ITS | Encounter Summary ---
Author Organization [facility] Address [address] [place] [address] Phone Care Team Providers Care Rn Paralegal Name Role Phone Lalito England Primary Care Provider [phone] Encounter Details Date Type Department Care Team (Late st Contact Info) Description 10/05/2021 Documentation Only [facility] [address] [place] [address] Radha Do MA [address] [place] [address] Social History Tobacco Use Types [...] Description 09/20/2024 4:45 PM CDT Office Visit [facility] [address] [place] [address] Osmin Paige MD [address] [place] [address] documented as of this encounter Visit Diagnoses Not on filedocumented in this encounter Care Teams Rn Paralegal Relationship Specialty Start Date End Date Lalito England [address] [place] [address] PCP - General Internal Medicine 06/04/21 documented as of this encounter
--- OUTSIDE RECORDS SUMMARY | 2024-07-11 22:58 | XMS_ITS | Encounter Summary ---
Author Organization [facility] Address [address] [facility] [address] [place] [address] Phone Care Team Providers Care Sound Mixer Name Role Phone Unavailable Primary Care Provider Unavailabl e Encounter Details Date Type Department Care Team (Late st Contact Info) Description 03/12/2021 Documentation Only [facility] [address] [facility] [address] [place] [address] Josie Pagan [address] [facility] [address] [place] [address] Social History Tobacco Use Types [...] Description 09/20/2024 4:45 PM CDT Office Visit [facility] [address] [facility] [address] [place] [address] Osmin Paige MD [address] [facility] [address] [place] [address] documented as of this encounter Visit Diagnoses Not on filedocumented in this encounter
--- OUTSIDE RECORDS SUMMARY | 2024-07-11 22:58 | XMS_ITS | Encounter Summary ---
Author Organization [facility] Address [address] [facility] [address] [place] [address] Phone Care Team Providers Care Collection Administrator Name Role Phone Unavailable Primary Care Provider Unavailabl e Encounter Details Date Type Department Care Team (Late st Contact Info) Description 03/27/2021 Documentation Only [facility] [address] [facility] [address] [place] [address] Josie Pagan [address] [facility] [address] [place] [address] Social History Tobacco Use Types [...] Description 09/20/2024 4:45 PM CDT Office Visit [facility] [address] [facility] [address] [place] [address] Osmin Paige MD [address] [facility] [address] [place] [address] documented as of this encounter Procedures Procedure Name Priority Date/Time Associated Diagnosis Comments SABRINA (EXTERNAL RESULT ENTRY) Routine 09/25/2020 GLOMERULAR FILTRATION RATE, ESTIMATED Routine 09/25/2020 PROTEIN / CREATININE RATIO, URINE Routine 09/25/2020 VITAMIN D 25 HYDROXY Routine 09/25/2020 URINALYSIS Routine 09/25/2020 CBC AND DIFFERENTIAL Routine 09/25/2020 CBC AND DIFFERENTIAL Routine 09/25/2020 PROTEIN ELECTROPHORESIS, SERUM Routine 09/25/2020 PHOSPHATE ( PHOSPHORUS) Routine 09/25/2020 PTH, INTACT Routine 09/25/2020 COMPREHENSIVE METABOLIC PANEL Routine 09/25/2020 documented in this encounter Results * (ABNORMAL) CBC and Differential (09/25/2020) WBC 10.8(A) 3.8 - 9.9 K/uL Red Blood Cell Count 3.75(A) 3.90 - 5.20 Hemoglobin 9.3(A) 11.9 - 15.5 g/dL Hematocrit 31.1(A) 35.6 - 45.5 % MCV 82.9 81.3 - 96.4 MCH 24.8(A) 27.1 - 33.3 MCHC 29.9(A) 32.3 - 35.7 MPV 9.8 9.1 - 12.3 Blood (Blood, Venous) 09/25/2020 us Historical Provider LAB BLOOD ORDERABLES Jessica l Result * Urinalysis (09/25/2020) Color, Urine YELLOW YELLOW Clarity, Urine CLEAR CLEAR Urine Specific [place] 1.009 1.010 - 1.025 pH Urine 5.5 Leukocyte Esterase UA NEGATIVE NEGATIVE Nitrite, Urine NEGATIVE NEGATIVE Protein, Urine TRACE NEGATIVE Glucose, Urine 1+ NEGATIVE Ketones, Urine NEGATIVE NEGATIVE Urobilinogen, Urine <2.0 <2.0 Bilirubin, Urine NEGATIVE NEGATIVE Blood, Urine NEGATIVE NEGATIVE Urine (Urine, Clean Catch) 09/25/2020 Result [facility] Provider MD LAB URINE ORDERABLES Jessica l Result * (ABNORMAL) Comprehensive Metabolic Panel (09/25/2020) [facility] Glucose 198 70 - 199 mg/dL BUN 20 8 - 25 mg/dL Creatinine 1.60(A) 0.60 - 1.10 mg/dL Sodium 135 135 - 145 mEq/L Potassium 4.5 3.3 - 4.9 mEq/L Chloride 96(A) 97 - 110 Carbon Dioxide 27 22 - 32 mmol/L Calcium 9.2 8.5 - 10.3 mg/dL Albumin (Blood) 3.8 3.5 - 5.0 g/dL AST (SGOT) 25 10 - 45 U/L ALT (SGPT) 19 7 - 45 U/L Alkaline Phosphatase 64 40 - 130 U/L Total Bilirubin 0.4 0.1 - 1.2 MG/DL Total Protein, Serum 7.0 6.5 - 8.5 Anion Gap 13 2 - 15 Blood (Blood, Venous) 09/25/2020 Result [facility] MD LAB BLOOD ORDERABLES Jessica l Result * (ABNORMAL) PTH, Intact (09/25/2020) [facility] Parathyroid Hormone, Intact 79(A) 15 - 65 pg/mL Blood (Blood, Venous) 09/25/2020 Result [facility] Provider LAB BLOOD ORDERABLES Jessica l Result * Phosphorus (09/25/2020) [facility] Phosphorus, Serum 2.9 2.3 - 4.5 mg/dL Blood (Blood, Venous) 09/25/2020 Result [facility] LAB BLOOD ORDERABLES Jessica l Result * Vitamin D 25 Hydroxy (09/25/2020) [facility] Vitamin D, 25-OH, Total 35 30 - 80 ng/mL Blood (Blood, Venous) 09/25/2020 Result [facility] MD LAB BLOOD ORDERABLES Jessica l Result * SABRINA (09/25/2020) [facility] SABRINA Positive Comment:SABRINA QUANT 1.80/ SABRINA INTERP HOMOGENEOUS Blood (Blood, Venous) 09/25/2020 Result [facility] MD LAB BLOOD ORDERABLES Jessica l Result * Protein electrophoresis, serum (09/25/2020) [facility] Total Protein, Serum 7.0 6.2 - 8.2 Albumin (Blood) 3.7 3.2 - 5.0 g/dL Keloc-1-Amxmnos n 0.3 0.2 - 0.4 Uuvay-9-Ppfxbtd n 0.9 0.5 - 1.0 Beta Globulin 0.5 0.3 - 0.6 Gamma Globulin in Serum 1.1 0.5 - 1.7 Blood (Blood, Venous) 09/25/2020 Result [facility] MD LAB BLOOD ORDERABLES Jessica l Result * (ABNORMAL) CBC and Differential (09/25/2020) [facility] Absolute Neutrophils 7.5(A) 1.7 - 6.5 Absolute Lymphocytes 2.0 0.8 - 3.3 Absolute Monocytes 0.9(A) 0.2 - 0.8 Absolute Eosinophils 0.3 0.0 - 0.5 Absolute Basophils 0.1 0.0 - 0.1 Neutrophils 69.4 K/uL Lymphocytes 18.4 Monocytes 8.3 Eosinophils 2.7 Basophils 0.6 Blood (Blood, Venous) 09/25/2020 Result [facility] MD LAB BLOOD ORDERABLES Jessica l Result * (ABNORMAL) Protein, Total, Random Urine w/Creatinine (Protein/Creat Ratio) (09/25/2020) Creatinine, Urine Random 80.6 mg/dL Urine Protein/Creati nine Ratio 260.5(A) 0.0 - 180.0 mg/g creat Protein Urine Random 21.0 Urine (Urine, Clean Catch) 09/25/2020 Historical Provider LAB URINE ORDERABLES Jessica l Result * Glomerular Filtration Rate, Estimated (09/25/2020) eGFR Non-Afr Latvian 32 09/25/2020 Historical Provider LAB BLOOD ORDERABLES Jessica l Result documented in this encounter Visit Diagnoses Not on filedocumented in this encounter
--- OUTSIDE RECORDS SUMMARY | 2024-07-11 22:58 | XMS_ITS | Encounter Summary ---
Author Organization [facility] Address [address] [place] [address] Phone Care Team Providers Care Outcomes Analyst Name Role Phone Lalito England Primary Care Provider [phone] Reason for Referral * Outpatient Services (Routine) - Closed Specialty Diagnoses / Procedures Referred By Contac t Referred To Contact Diagnoses Hypertension Type 2 diabetes mellitus with diabetic nephropathy (HCC) Secondary hyperparathyroidism of renal origin (HCC) Anemia in chronic kidney disease Iron deficiency anemia, not otherwise specified Hypertensive chronic kidney disease, unspecified, with chronic kidney disease stage I through stage IV, or unspecified Type 2 diabetes mellitus with diabetic chronic kidney disease (HCC) Stage 3b chronic kidney disease (HCC) Procedures Venofer Infusion Orders Osmin Paige MD [address] [place] [address] Phone: tel: fax: Referral ID Status Reason Start Date Expiration Date Visits Re quested Visits Authorized [id number] Closed 07/04/2021 12/31/2021 3 3 O/TV TECHNICIAN Encounter Details Date Type Department Care Team (Latest Contact Info) Description 07/04/2021 2:45 PM RADIO/TV TECHNICIAN Office Visit [facility] [address] [place] [address] Osmin Paige MD [address] [place] [address] Stage 3b chronic kidney disease (HCC) (Primary Dx); Hypertension; Type 2 diabetes mellitus with diabetic nephropathy (HCC); Secondary hyperparathyroidism of renal origin (HCC); Anemia in chronic kidney disease; Iron deficiency anemia, not otherwise specified; Hypertensive chronic kidney disease, unspecified, with chronic kidney disease stage I through stage IV, or unspecified; Type 2 diabetes mellitus with diabetic chronic kidney disease (HCC) Social History Tobacco [...] or suspected to have Coronavirus / COVID-19? Unable to assess 07/04/2021 10:03 AM ES T documented as of this encounter Patient Instructions * Patient Instructions* Osmin Paige MD - 07/04/2021 2:45 PM RADIO/TV TECHNICIAN No NSAIDS - Do not take non-steroidal anti-inflammatory medications (NSAIDS) such as Ibuprofen (Advil, Motrin, etc), Naproxen (Aleve, etc), Celecoxib (Celebrex) or Ketoprofen. These common arthritis medications can cause permanent kidney damage or worsen your kidney damage. For mild occasional pain, Acetaminophen (Tylenol, etc) is safe for your kidneys. No iodinated contrast - You should avoid contrast dye used in CT scans, Angiograms or other tests because this type of dye can injure your kidneys. Sometimes using that type of contrast dye is essential but in that instance be certain that your paste maker is contacted so that care can be taken toprotect your kidneys before the test is done. documented in this encounter Progress Notes * Osmin Paige MD - 07/04/2021 2:45 PM CST Images from the original note were not included. Instructed the patient to discontinue metformin as advised in my last note. I feel the same way about the gabapentin, but not as urgently. Will contact Dr. England' office directly. Assessment & Plan 1. Stage 3b chronic kidney disease (HCC) 2. Hypertension 3. Type 2 diabetes mellitus with diabetic nephropathy (HCC) 4. Secondary hyperparathyroidism of renal origin (HCC) 5. Anemia in chronic kidney disease 6. Iron deficiency anemia, not otherwise specified 7. Hypertensive chronic kidney disease, unspecified, with chronic kidney disease stage I through stage IV, or unspecified 8. Type 2 diabetes mellitus with diabetic chronic kidney disease (HCC) Orders Placed This Encounter ??? CBC and Differential ??? Hemoglobin A1c ??? Renal function panel ??? PTH, intact ??? Iron Panel (Fe, TIBC, TSAT) ??? Ferritin ??? Diet No Added Salt ??? Venofer Infusion Orders Return in 3 months (on 10/02/2021). History of Present Illness The following portions of the patient's chart were reviewed in this encounter and updated as appropriate: Allergies Meds Problems Med Hx Surg Hx Fam Hx Review of Systems ROS Physical Exam There were no vitals taken for this visit. Physical Exam Labs Labs Some values may be hidden. Unless noted otherwise, only the newest values recorded on each date aredisplayed. Vitals 09/25/20 06/04/21 06/20/21 Weight 244 lb 8 oz (111 kg) Height 5' 6 (1.676 m) BP 102/53 Pulse 88 Renal Lab Latest Ref Range 09/25/20 06/04/21 06/20/21 Sodium 135 - 145 mEq/L 135 137 Potassium 3.3 - 4.9 mEq/L 4.5 4.2 Chloride 97 - 110 96 (A) 98 Bicarbonate (CO2) 22 - 32 mmol/L 27 25 BUN 8 - 25 mg/dL 20 36 (A) Creatinine Serum 0.60 - 1.10 mg/dL 1.60 (A) 2.19 (A) GFR EST NON 32 Glucose 70 - 199 mg/dL 198 90 Hemoglobin A1C 4.0 - 5.6 11.0 (A) Albumin (Blood) 3.5 - 5.0 g/dL 3.8 3.8 Calcium 8.5 - 10.3 mg/dL 9.2 9.8 Phosphorus 2.3 - 4.5 mg/dL 2.9 PTH, Intact 15 - 65 pg/mL 79 (A) 81 (A) Vitamin D, 25-OH, Total 30 - 80 ng/mL 35 Some values recorded on this date have been omitted. (A) Abnormal value Anemia Labs Latest Ref Range 09/25/20 06/04/21 06/20/21 WBC 3.8 - 9.9 K/uL 10.8 (A) 10.4 (A) Hemoglobin 11.9 - 15.5 g/dL 9.3 (A) 9.8 (A) Hematocrit 35.6 - 45.5 % 31.1 (A) 31.7 (A) Platelets 150 - 400 267 Iron Saturation (TSat) 20 - 50 13 (A) (A) Abnormal value Gen Med Labs Latest Ref Range 09/25/20 06/04/21 06/20/21 Alkaline Phosphatase 40 - 130 U/L 64 101 Bilirubin 0.1 - 1.2 MG/DL 0.4 0.5 AST (SGOT) 10 - 45 U/L 25 21 ALT (SGPT) 7 - 45 U/L 19 17 Serology Lab 09/25/20 06/04/21 06/20/21 SABRINA Positive Urine Labs Latest Ref Range 09/25/20 06/04/21 06/20/21 Protein/Creatinine Ratio, Urine 0.0 - 180 260.5 (A) 113.6 Color, Urine Yellow YELLOW Straw Clarity, Urine Clear CLEAR Clear Nitrite, Urine Negative NEGATIVE Negative Protein Urine Negative TRACE Negative Specific [place] Urine 1.003 - 1.030 1.009 1.007 pH Urine 5.5 5 Leukocyte Esterase UA Negative NEGATIVE Negative Glucose, Urine Negative 1+ 1+ Ketones, Urine Negative NEGATIVE Negative Urobilinogen, Urine <2.0 <2.0 <2.0 Bilirubin, Urine Negative NEGATIVE Negative Blood, Urine Negative NEGATIVE Negative (A) Abnormal value Drug Levels 09/25/20 06/04/21 06/20/21 No data to display. SHELLIE Meds No data to display. Comments are available for some flowsheets but are not being displayed. Osmin Paige MD documented in this encounter Plan of Treatment Upcoming Encounters Date Type Department Care Team (Late st Contact Info) Description 09/20/2024 4:45 PM CDT Office Visit [facility] [address] [facility] [address] [id number] Osmin Paige MD [address] [place] [address] [address] [place] [id number] documented as of this encounter Procedures Procedure Name Priority Date/Time Associated Diagnosis Comments IRON PANEL (FE, TIBC, TSAT) Routine 09/28/2021 Stage 3b chronic kidney disease (HCC) CBC AND DIFFERENTIAL Routine 09/28/2021 Hypertension Type 2 diabetes mellitus with diabetic nephropathy (HCC) Secondary hyperparathyroidism of renal origin (HCC) Anemia in chronic kidney disease Iron deficiency anemia, not otherwise specified Hypertensive chronic kidney disease, unspecified, with chronic kidney disease stage I through stage IV, or unspecified Type 2 diabetes mellitus with diabetic chronic kidney disease (HCC) Stage 3b chronic kidney disease (HCC) PTH, INTACT Routine 09/28/2021 Stage 3b chronic kidney disease (HCC) HEMOGLOBIN A1C Routine 09/28/2021 Type 2 diabetes mellitus with diabetic chronic kidney disease (HCC) FERRITIN Routine 09/28/2021 Stage 3b chronic kidney disease (HCC) RENAL FUNCTION PANEL Routine 09/28/2021 Stage 3b chronic kidney disease (HCC) Type 2 diabetes mellitus with diabetic chronic kidney disease (HCC) documented in this encounter Results * (ABNORMAL) Ferritin (09/28/2021) Ferritin 14(A) 15 - 150 PRINT/EXTE RNAL (NON-INTERFACED LABS) Blood (Blood, Venous) 09/28/2021 us Osmin Paige MD LAB BLOOD ORDERABLES Final Res ult PRINT/EXTERNAL (NON-INTERFACED LABS) * Iron Panel (Fe, TIBC, TSAT) (09/28/2021) Iron, Total 39 35 - 145 PRINT/EX TERNAL (NON-INTERFACED LABS) Blood (Blood, Venous) 09/28/2021 us Osmin Paige MD LAB BLOOD ORDERABLES Final Res ult Performing Organization Address [facility]/ZIP Co de Phone Number PRINT/EXTERNAL (NON-INTERFACED LABS) * (ABNORMAL) PTH, intact (09/28/2021) Parathyroid Hormone, Intact 103(A) 15 - 65 pg/mL PRINT/EXTERNA L (NON-INTERFAC ED LABS) Blood (Blood, Venous) 09/28/2021 Osmin Paige MD LAB BLOOD ORDERABLES Final Res ult Performing Organization Address [facility] Co de Phone Number PRINT/EXTERNAL (NON-INTERFACED LABS) * (ABNORMAL) Renal function panel (09/28/2021) Glucose 65(A) 70 - 199 mg/dL PRINT/EXTERNA L (NON-INTERFAC ED LABS) BUN 57(A) 8 - 25 mg/dL PRINT/EXTERNA L (NON-INTERFAC ED LABS) Creatinine 2.14(A) 0.60 - 1.10 mg/dL PRINT/EXTERNA L (NON-INTERFAC ED LABS) Sodium 141 135 - 145 mEq/L PRINT/EXTERNA L (NON-INTERFAC ED LABS) Potassium 3.6 3.3 - 4.9 mEq/L PRINT/EXTERNA L (NON-INTERFAC ED LABS) Chloride 100 97 - 110 PRINT/EXTE RNA L (NON-INTERFAC ED LABS) Carbon Dioxide 27 22 - 32 mmol/L PRINT/EXTERNA L (NON-INTERFAC ED LABS) Calcium 9.3 8.5 - 10.3 mg/dL PRINT/EXTERNA L (NON-INTERFAC ED LABS) Phosphorus, Serum 4.0 2.3 - 4.5 mg/dL PRINT/EXTERNA L (NON-INTERFAC ED LABS) Albumin (Blood) 3.9 3.5 - 5.0 g/dL PRINT/EXTERNA L (NON-INTERFAC ED LABS) eGFR Non-Afr [place] 24 PRINT/EXTERNA L (NON-INTERFAC ED LABS) Blood (Blood, Venous) 09/28/2021 Osmin Paige MD LAB BLOOD ORDERABLES Final Res ult Performing Organization Address [facility]/ZIP Co de Phone Number PRINT/EXTERNAL (NON-INTERFACED LABS) * (ABNORMAL) Hemoglobin A1c (09/28/2021) Hemoglobin A1C 8.6(A) 4.0 - 5.6 PRINT /EXTERNAL (NON-INTERFACE D LABS) Blood (Blood, Venous) 09/28/2021 Osmin Paige MD LAB BLOOD ORDERABLES Final Res ult Performing Organization Address [facility]/ZIP Co de Phone Number PRINT/EXTERNAL (NON-INTERFACED LABS) * (ABNORMAL) CBC and Differential (09/28/2021) WBC 14.9(A) 3.8 - 9.9 K/uL PRINT/EXTERNA L (NON-INTERFAC ED LABS) Red Blood Cell Count 4.40 3.90 - 5.20 PRINT/EXTERNA L (NON-INTERFAC ED LABS) Hemoglobin 11.7(A) 11.9 - 15.5 g/dL PRINT/EXTERNA L (NON-INTERFAC ED LABS) Hematocrit 37.9 35.6 - 45.5 % PRINT/EXTERNA L (NON-INTERFAC ED LABS) MCV 86.1 81.3 - 96.4 PRINT/EXTERNA L (NON-INTERFAC ED LABS) MCH 26.6(A) 27.1 - 33.3 PRINT/EXTERNA L (NON-INTERFAC ED LABS) MCHC 30.9(A) 32.3 - 35.7 PRINT/EXTERNA L (NON-INTERFAC ED LABS) Platelet Count 282 150 - 400 PRINT /EXTERNA L (NON-INTERFAC ED LABS) MPV 10.0 9.1 - 12.3 PRINT/EXT ANISHA L (NON-INTERFAC ED LABS) Absolute Neutrophils 9.2(A) 1.7 - 6.5 PRINT/EXTERNA L (NON-INTERFAC ED LABS) Absolute Lymphocytes 4.3(A) 0.8 - 3.3 PRINT/EXTERNA L (NON-INTERFAC ED LABS) Absolute Monocytes 0.8 0.2 - 0.8 PRINT/EXTERNA L (NON-INTERFAC ED LABS) Absolute Eosinophils 0.3 0.0 - 0.5 PRINT/EXTERNA L (NON-INTERFAC ED LABS) Absolute Basophils 0.1 0.0 - 0.1 PRINT/EXTERNA L (NON-INTERFAC ED LABS) Neutrophils 62.1 K/uL PRINT/EX TERNA L (NON-INTERFAC ED LABS) Lymphocytes 29.0 PRINT/EX TERNA L (NON-INTERFAC ED LABS) Monocytes 5.6 PRINT/EXTE RNA L (NON-INTERFAC ED LABS) Eosinophils 2.2 PRINT/EX TERNA L (NON-INTERFAC ED LABS) Basophils 0.4 PRINT/EXTE RNA L (NON-INTERFAC ED LABS) Blood (Blood, Venous) 09/28/2021 us Osmin Paige MD LAB BLOOD ORDERABLES Final Res ult PRINT/EXTERNAL (NON-INTERFACED LABS) documented in this encounter Visit Diagnoses Diagnosis Stage 3b chronic kidney disease (HCC)- Primary Hypertension Type 2 diabetes mellitus with diabetic nephropathy (HCC) Secondary hyperparathyroidism of renal origin (HCC) Secondary hyperparathyroidism of renal origin Anemia in chronic kidney disease Iron deficiency anemia, not otherwise specified Hypertensive chronic kidney disease, unspecified, with chronic kidney disease stage I through stage IV, or unspecified Type 2 diabetes mellitus with diabetic chronic kidney disease (HCC) documented in this encounter Care Teams Outcomes Analyst Relationship Specialty Start Date End Date Lalito England [address] [place] [id number] PCP - General Internal Medicine 06/04/21 documented as of this encounter
--- OUTSIDE RECORDS SUMMARY | 2024-07-11 22:58 | XMS_ITS | Encounter Summary ---
Author Organization [employer] Address [address] [place] [address] Care Team Providers Care Rouge Mixer Name Role Phone Clayton Sandoval MD Primary Care Provider [phone] Reason for Referral * CT Scan (Routine) - Closed Specialty Diagnoses / Procedures Referred By Contac t Referred To Contact Radiology Diagnoses Degeneration of lumbar intervertebral disc Procedures CT LUMBAR SPINE W CONTRAST Srinath Tovar MD [address] [facility] [address] [place] [address] [facility] Interventional Radiology [address] [place] [address] Referral ID Status Reason Start Date Expiration Date Visits Requested Visits Authorized [id number] Closed [facility] INTERVENTIONAL 09/14/2018 10/15/2019 1 1 ER/WAITRESS FIRST CLASS * Radiology Services (Routine) - Closed Specialty Diagnoses / Procedures Referred By Contac t Referred To Contact Radiology Diagnoses Degeneration of lumbar intervertebral disc Procedures XR MYELOGRAM LUMBAR HI MYELOGRAPHY VIA LUMBAR INJECT RS&I LUMBOSACRAL CHG FLUOROSCOPY UP TO 1 HOUR PHYSICIAN/QHP TIME Srinath Tovar MD [address] [facility] [address] [place] [address] [facility] Interventional Radiology [address] [place] [address] Referral ID Status Reason Start Date Expiration Date Visits Requested Visits Authorized [id number] Closed [facility] INTERVENTIONAL 09/14/2018 10/15/2019 1 1 ER/WAITRESS FIRST CLASS Reason for Visit * Radiology Services (Routine) - Closed Specialty Diagnoses / Procedures Referred By Contac t Referred To Contact Radiology Diagnoses Degeneration of lumbar intervertebral disc Procedures XR MYELOGRAM LUMBAR HI MYELOGRAPHY VIA LUMBAR INJECT RS&I LUMBOSACRAL CHG FLUOROSCOPY UP TO 1 HOUR PHYSICIAN/QHP TIME Srinath Tovar MD [address] [place] [address] [facility] Interventional Radiology [address] [address] Referral ID Status Reason Start Date Expiration Date Visits Requested Visits Authorized [id number] Closed [facility] INTERVENTIONAL 09/14/2018 10/15/2019 1 1 Encounter Details Date Type Department Care Team (Latest Contact Info) Description 09/18/2018 9:03 AM WAITER/WAITRESS FIRST CLASS - 09/18/2018 2:21 PM WAITER/WAITRESS FIRST CLASS Hospital Encounter [facility] Pre Post Recovery [address] [address] Srinath Tovar MD [address] [facility] [address] [place] [address] Degeneration of lumbar intervertebral disc Discharge Disposition: Home or Self Care Social History Tobacco Use Types Packs/Day Years [...] - - Pulse 105 09/18/2018 9:31 AM WAITER/WAITRESS FIRST CLASS Temperature 36.8 ??C (98.2 ??F) 09/18/2018 9:31 AM CS T Respiratory Rate 18 09/18/2018 9:31 AM WAITER/WAITRESS FIRST CLASS Oxygen Saturation 95% 09/18/2018 9:31 AM WAITER/WAITRESS FIRST CLASS Inhaled Oxygen Concentration - - Weight 114.8 kg (253 lb) 09/18/2018 9:31 AM WAITER/WAITRESS FIRST CLASS Height 167.6 cm (5' 6 ) 09/18/2018 9:31 AM WAITER/WAITRESS FIRST CLASS Body Mass Index 40.84 09/18/2018 9:31 AM WAITER/WAITRESS FIRST CLASS documented in this encounter Discharge Instructions * Discharge Instructions* Roseline Martins PA - 09/17/2018 11:01 AM WAITER/WAITRESS FIRST CLASS Myelogram Discharge Instructions Radiologist: Referring Physician: Dr. Tovar Upon discharge from [facility] after your myelogram, the following steps should be taken in order to minimize the potential side effects from the myelogram. 1. The person accompanying you for the test should drive you directly home and should remain with you over the next 24 hours. 2. You should remain in a 15 degree head upright position in a reclining chair or bed until 7 a.m. The next day with getting up limited to go to the bathroom or to the table to eat. During this time you should limit your activities to reading, watching TV, sleeping or resting in general. You shouldsleep with your head elevated on at least two (2) pillows. No heavy lifting or strenuous activity for 72 hours. 3. You should continue to drink significant amounts of fluid over the next 24 hours (2 to 3 quarts). Avoid alcoholic and caffeinated beverages during this time. 4. You may continue your regular diet and medications. 5. If you develop a headache or backache following this test, you may take Tylenol for pain. If these symptoms are severe and/or unrelieved, notify your private physician or return to the emergency room. 6. Nausea or vomiting may sometimes occur. These symptoms are usually mild and will most often subside in a short time. If these symptoms persist, notify your private physician. 7. If fever or mental changes such as confusion or seizures occur, go immediately to the emergency room. 8. If other questions arise, contact your private physician. If you are unable to reach your private physician you may call the Radiology Department at [facility] at [phone] Discharge instructions have been explained to the patient. The patient or the person responsible for the patient fully understands the instructions. Patient signature 09/17/2018 11:00 AM RN signature 09/17/2018 11:00 AM Criss Ly ER/WAITRESS FIRST CLASS documented in this encounter Medications at Time of Discharge Medication Sig Dispensed Refills Start Date End Date alendronate (FOSAMAX) 70 mg tablet 07/21/2018 albuterol HFA 90 mcg inhaler Take 2 Puffs by inhalation. yqispoe-bbudnoywxvnbm-s affeine (EXCEDRIN EXTRA STRENGTH) 250-250-65 mg Tablet Take 1 Tablet by mouth. fluticasone (FLONASE) 50 mcg/spray [place], Suspension inhale 2 spray by Intranasal route every day in each nostril 05/26/2012 gabapentin (NEURONTIN) 300 mg capsule 300 mg. 07/21/2015 insulin glargine (LANTUS) 100 unit/mL pen syringe Inject 44 Units by subcutaneous injection. 03/31/2017 irbesartan-hydroCHLOROt hiazide (AVALIDE) 300-12.5 mg tablet TAKE ONE TABLET BY MOUTH ONCE DAILY 08/18/2013 lancets (MICROLET LANCET) test by fingerstick route 3 times daily 07/26/2015 metFORMIN (GLUCOPHAGE) 500 mg tablet 500 mg. 06/24/2014 montelukast (SINGULAIR) 10 mg tablet 10 mg. 09/18/2016 pantoprazole (PROTONIX) 40 mg Tablet, Delayed Release (E.C.) 40 mg. 09/07/2014 Insulin Palmer, Disposable, 31 gauge x 3/16 Needle 1 needle as directed 12/23/2016 traMADol (ULTRAM) 50 mg tablet 50 mg. 06/21/2013 blood sugar diagnostic (CONTOUR NEXT TEST STRIPS) Strip USE ONE STRIP IN METER THREE TIMES A DAY 07/04/2014 Blood-Glucose Meter (CONTOUR NEXT USB METER) test as directed 07/04/2014 amLODIPine (NORVASC) 10 mg tablet Take 10 mg by mouth daily. cloNIDine HCl (CATAPRES) 0.1 mg tablet Take 0.1 mg by mouth. simvastatin (ZOCOR) 40 mg tablet Take 40 mg by mouth late in the day. insulin aspart (NOVOLOG FLEXPEN U-100 INSULIN SUBCUT) Inject by subcutaneous injection. fluticasone (FLOVENT HFA) 110 mcg/actuation HFA Aerosol Inhaler Take by inhalation 2 times daily. calcium-vitamin D3 (CALTRATE 600+D) 600 mg(1,500mg) -200 unit Tablet Take by mouth. documented as of this encounter Progress Notes * Phyllis Garcia RN - 09/18/2018 2:19 PM CST 1200: pt given sprite & crackers for nausea 1300: denies nausea and pain. 1350 : reviewed d/c instructions with patient and family. Verbalized understanding, dressing to back still clean dry intact. Denies nausea/pain or head ache, tolerating bed rest. Home with friend. ER/WAITRESS FIRST CLASS * Kit Crowe RN - 09/18/2018 11:40 AM CST Pt back to room, back site intact, c/o sl back pressure, family at bedside, drink given, on bedrestuntil 1340. ER/WAITRESS FIRST CLASS * Shannan Oneal, RT - 09/18/2018 10:50 AM CST Post fluoro imaging completed. Patient tolerated well and placed prone onto stretcher. Pt complained of mild nausea and given emesis bucket, but did not want cold wash cloth. Patient transferred to CT for completion of myelogram imaging. Stretcher lowered and locked and call light given. Verbal report given to CT on patient's arrival. ER/WAITRESS FIRST CLASS * Phyllis Garcia RN - 09/18/2018 9:49 AM CST 0950 : patient to IR holding pre procedure for lumbar myelogram. Patient states pain is in low backsharp and worst when walking.Vitals obtained, home meds, allergies, and medical history verified. Procedure explained, all questions answered, consent obtained. Call light in reach, friend at bedside. ER/WAITRESS FIRST CLASS documented in this encounter H&P Notes * Roseline Martins PA - 09/18/2018 9:10 AM CST HPI: Criss Ly is a 68 y.o. female presenting with lower back pain that is worse with ambulation. Presents today for lumbar myelogram. Past Medical History: Diagnosis Date ??? Diabetes mellitus ??? HTN (hypertension) ??? Hyperlipidemia Past Surgical History: Procedure Laterality Date ??? HX BREAST REDUCTION ??? HX HIP REPLACEMENT ??? HX KNEE ARTHROPLASTY 2006 LEFT ??? HX KNEE REPLACEMENT 2002 RIGHT ??? HX NECK SURGERY ??? HX SPINAL SURGERY LUMBAR MICRODECOMPRESSION 2006 History Smoking Status ??? Never Smoker Smokeless Tobacco ??? Never Used History Drug use: Unknown No Known Allergies RECENT LABS: No results found for this visit on 09/18/18 (from the past 24 hour(s)). Current Facility-Administered Medications: ??? LIDOCAINE 10 MG/ML (1 %) INJECTION SOLUTION (CABINET OVERRIDE), , , , Constitutional: negative. Musculoskeletal:positive for back pain. Neurological: negative. RECENT VITAL SIGNS: Pulse (!) 105 Temp 98.2 ??F (36.8 ??C) (Oral) Resp 18 Ht 5' 6 (1.676 m) Wt 114.8 kg (253 lb) SpO2 95% BMI 40.84 kg/m?? PHYSICAL EXAM: General appearance: alert, in no distress Neurologic: Grossly normal ASA: na MALLAMPATI: na ASSESSMENT/PLAN: Lumbar myelogram ER/WAITRESS FIRST CLASS documented in this encounter Procedure Notes * Riley Bravo MD - 09/18/2018 11:00 AM CST Brief Interventional Radiology Post Procedure Note Patient: Criss Ly Surgeons: Riley Bravo MD Shuttle Final Inspector(s): Description of Procedure: Lp for lumbar myelogram. Pre-operative diagnosis: Lower back pain. Post-operative diagnosis: Same as pre-operative diagnosis Brief Procedure Details: Lp with injection of Isovue 300M. Anesthesia: local Complications: None Estimated Blood Loss: Minimal Specimens removed: None. Disposition of specimens: N/A Additional Comments: Riley Bravo MD 09/18/2018 11:00 AM ER/WAITRESS FIRST CLASS documented in this encounter Plan of Treatment Not on file documented as of this encounter Procedures Procedure Name Priority Date/Time Associated Diagnosis Comments CT LUMBAR SPINE W CONTRAST Routine 09/18/2018 11:33 AM WAITER/WAITRESS FIRST CLASS Degeneration of lumbar intervertebral disc XR MYELOGRAM LUMBAR Routine 09/18/2018 11:08 AM WAITER/WAITRESS FIRST CLASS Degeneration of lumbar intervertebral disc documented in this encounter Results * CT LUMBAR SPINE W CONTRAST (09/18/2018 11:33 AM WAITER/WAITRESS FIRST CLASS) Anatomical Region Laterality Modality Spine Computed Tomogra phy 09/18/2018 11:3 4 AM WAITER/WAITRESS FIRST CLASS Impressions 09/18/2018 4:52 PM WAITER/WAITRESS FIRST CLASS IMPRESSION: ?? 1. Multilevel degenerative lumbar spondylosis and Grade I L4-5 anterior spondylolisthesis. 2. L2-3 disc bulge with moderate spinal canal stenosis and mild bilateral neural foraminal narrowing. 3. L3-4 disc bulge with mild spinal canal stenosis and moderate bilateral neural foraminal narrowing. 4. L4-5 disc bulge with mild spinal canal stenosis and moderate bilateral neural foraminal narrowing. 5. L5-S1 disc bulge with mild spinal canal stenosis and mild bilateral neural foraminal narrowing. DICTATION LOCATION: Location [address] [place] [address] 09/18/2018 4:52 PM WAITER/WAITRESS FIRST CLASS CT POST MYELOGRAM LUMBAR SPINE CT MULTIPLANAR RECONSTRUCTIONS DATE: ??09/18/2018 11:33 AM HISTORY: Radiculopathy, > 6wks conservative tx, persistent sx; lower back pain. ?? Degeneration of lumbar intervertebral disc. COMPARISON: No prior studies are available for comparison. TECHNIQUE: ??Contiguous axial images of the lumbar spine post myelography with sagittal and coronary multiplanar reconstructions. The examination was performed with the adjustment of mA according to the patient size and/or the use of Iterative Reconstruction Technique. FINDINGS: Multilevel degenerative lumbar spondylosis is present with Grade I L4-5 anterior spondylolisthesis of 3 mm. The T12-L1 and L1-2 disc spaces are normal without evidence of significant disc bulge, protrusion or extrusion. The spinal canal diameter is normal and there is no evidence of significant neural foraminal narrowing. L2-3 vacuum disc degenerative changes and disc bulging are present that combined with slight ligamentum flavum thickening and bilateral degenerative facet joint changes creates moderate spinal canal stenosis with mild bilateral neural foraminal narrowing. L3-4 degenerative disc space narrowing and disc bulging are present with vacuum disc degenerative changes. The disc bulge combined with slight ligamentum flavum thickening and bilateral degenerative facet joint changes creates mild spinal canal stenosis with mild to moderate bilateral neural foraminal narrowing. L4-5 anterior spondylolisthesis and disc bulging are present that combined with ligamentum flavum thickening and bilateral degenerative facet joint hypertrophy creates moderate bilateral neural foraminal narrowing and mild spinal canal stenosis. Laminotomy changes are noted on the left. L5-S1 disc bulging is present that combined with bilateral degenerative facet joint hypertrophy creates mild spinal canal stenosis with mild bilateral neural foraminal narrowing. Procedure Note Riley Bravo MD - 09/18/2018 CT POST MYELOGRAM LUMBAR SPINE CT MULTIPLANAR RECONSTRUCTIONS DATE: 09/18/2018 11:33 AM HISTORY: Radiculopathy, > 6wks conservative tx, persistent sx; lower back pain. Degeneration of lumbar intervertebral disc. COMPARISON: No prior studies are available for comparison. TECHNIQUE: Contiguous axial images of the lumbar spine post myelography with sagittal and coronary multiplanar reconstructions. The examination was performed with the adjustment of mA according to the patient size and/or the use of Iterative Reconstruction Technique. FINDINGS: Multilevel degenerative lumbar spondylosis is present with Grade I L4-5 anterior spondylolisthesis of 3 mm. The T12-L1 and L1-2 disc spaces are normal without evidence of significant disc bulge, protrusion or extrusion. The spinal canal diameter is normal and there is no evidence of significant neural foraminal narrowing. L2-3 vacuum disc degenerative changes and disc bulging are present that combined with slight ligamentum flavum thickening and bilateral degenerative facet joint changes creates moderate spinal canal stenosis with mild bilateral neural foraminal narrowing. L3-4 degenerative disc space narrowing and disc bulging are present with vacuum disc degenerative changes. The disc bulge combined with slight ligamentum flavum thickening and bilateral degenerative facet joint changes creates mild spinal canal stenosis with mild to moderate bilateral neural foraminal narrowing. L4-5 anterior spondylolisthesis and disc bulging are present that combined with ligamentum flavum thickening and bilateral degenerative facet joint hypertrophy creates moderate bilateral neural foraminal narrowing and mild spinal canal stenosis. Laminotomy changes are noted on the left. L5-S1 disc bulging is present that combined with bilateral degenerative facet joint hypertrophy creates mild spinal canal stenosis with mild bilateral neural foraminal narrowing. IMPRESSION: 1. Multilevel degenerative lumbar spondylosis and Grade I L4-5 anterior spondylolisthesis. 2. L2-3 disc bulge with moderate spinal canal stenosis and mild bilateral neural foraminal narrowing. 3. L3-4 disc bulge with mild spinal canal stenosis and moderate bilateral neural foraminal narrowing. 4. L4-5 disc bulge with mild spinal canal stenosis and moderate bilateral neural foraminal narrowing. 5. L5-S1 disc bulge with mild spinal canal stenosis and mild bilateral neural foraminal narrowing. DICTATION LOCATION: [address] Srinath Tovar MD CT ORDERABLES * XR MYELOGRAM LUMBAR (09/18/2018 11:08 AM WAITER/WAITRESS FIRST CLASS) Anatomical Region Laterality Modality Spine Computed Radiogr aphy 09/18/2018 11:2 2 AM WAITER/WAITRESS FIRST CLASS Impressions 09/18/2018 4:52 PM WAITER/WAITRESS FIRST CLASS IMPRESSION: ?? 1. L4-5 grade 1 anterior spondylolisthesis and multilevel degenerative lumbar spondylosis. 2. L2-3 disc bulge with moderate spinal canal stenosis. 3. L3-4, L4-5 and L5-S1 disc bulging with mild spinal canal stenosis. DICTATION LOCATION: [address] Narrative 09/18/2018 4:52 PM WAITER/WAITRESS FIRST CLASS LUMBAR MYELOGRAM FLUOROSCOPIC LUMBAR PUNCTURE FOR MYELOGRAPHY DATE: ??09/18/2018 11:08 AM HISTORY: Lower back pain and prior lumbar surgery. ??Degeneration of lumbar intervertebral disc COMPARISON: No prior studies are available for comparison. ATTENDING RADIOLOGIST: ??Mark Bravo MD DESCRIPTION OF PROCEDURE: ?? Informed consent with obtained, including a detailed description of the risks and benefits of myelography, including the risk of seizure and spinal cord injury. ??The patient was placed on the fluoroscopic table in the prone position. ??The lower back was prepped and draped in sterile fashion. ??1% Lidocaine was used for local skin anesthesia. Under fluoroscopic guidance, the L4-5 interspace was entered using a 22 gauge spinal needle. ??Clear, colorless CSF was spontaneously obtained. ??Approximately 13 cc of Isovue-300 M myelographic contrast was administered under fluoroscopic visualization. ??The needle was removed and the patient tolerated the procedure well without complication. ??The procedure was followed by 2 hours of bed rest, and the patient was discharged home without incident. ??The fluoroscopy time was 2.5 minutes. ?? AP, lateral and oblique radiographic views of the lumbar spine were obtained by the technologist post myelography. ?? FINDINGS: Slight right lumbar scoliosis is noted. Grade 1 L4-5 anterior spondylolisthesis is present with multilevel degenerative lumbar spondylosis. Degenerative disc space narrowing is present at L2-3 through L5-S1. L2-3 disc bulging creates moderate spinal canal stenosis. There is L3-4 and L4-5 disc bulging with mild spinal canal stenosis. L5-S1 disc bulging creates mild spinal canal stenosis. Procedure Note Riley Bravo MD - 09/18/2018 LUMBAR MYELOGRAM FLUOROSCOPIC LUMBAR PUNCTURE FOR MYELOGRAPHY DATE: 09/18/2018 11:08 AM HISTORY: Lower back pain and prior lumbar surgery. Degeneration of lumbar intervertebral disc COMPARISON: No prior studies are available for comparison. ATTENDING RADIOLOGIST: Mark Bravo MD DESCRIPTION OF PROCEDURE: Informed consent with obtained, including a detailed description of the risks and benefits of myelography, including the risk of seizure and spinal cord injury. The patient was placed on the fluoroscopic table in the prone position. The lower back was prepped and draped in sterile fashion. 1% Lidocaine was used for local skin anesthesia. Under fluoroscopic guidance, the L4-5 interspace was entered using a 22 gauge spinal needle. Clear, colorless CSF was spontaneously obtained. Approximately 13 cc of Isovue-300 M myelographic contrast was administered under fluoroscopic visualization. The needle was removed and the patient tolerated the procedure well without complication. The procedure was followed by 2 hours of bed rest, and the patient was discharged home without incident. The fluoroscopy time was 2.5 minutes. AP, lateral and oblique radiographic views of the lumbar spine were obtained by the technologist post myelography. FINDINGS: Slight right lumbar scoliosis is noted. Grade 1 L4-5 anterior spondylolisthesis is present with multilevel degenerative lumbar spondylosis. Degenerative disc space narrowing is present at L2-3 through L5-S1. L2-3 disc bulging creates moderate spinal canal stenosis. There is L3-4 and L4-5 disc bulging with mild spinal canal stenosis. L5-S1 disc bulging creates mild spinal canal stenosis. IMPRESSION: 1. L4-5 grade 1 anterior spondylolisthesis and multilevel degenerative lumbar spondylosis. 2. L2-3 disc bulge with moderate spinal canal stenosis. 3. L3-4, L4-5 and L5-S1 disc bulging with mild spinal canal stenosis. DICTATION LOCATION: Location [address] [place] [address] Srinath Tovar MD DIAGNOSTIC IMAGING O RDERABLES documented in this encounter Visit Diagnoses Diagnosis Degeneration of lumbar intervertebral disc Degeneration of lumbar or lumbosacral intervertebral disc documented in this encounter Administered Medications Inactive Administered Medications - up to 3 most recent administrations Medication Order MAR Action Action Date Dose Rate Site Iopamidol (ISOVUE-M 300) 61 % injection 15 mL 15 mL, IntraTHEcal, INTRA-PROCEDURE ONCE, 1 dose, Starting on Fri09/18/18 at 1108, Until Fri09/18/18 at 1040, Routine Contrast Given 09/18/2018 10:40 AM WAITER/WAITRESS FIRST CLASS 13 mL LIDOCAINE 10 MG/ML (1 %) INJECTION SOLUTION (CABINET OVERRIDE) 1 dose, Starting on Fri09/18/18 at 1001, Until Fri09/18/18 at 1040, DEMETRIA CUBAA1: cabinet override Given 09/18/2018 10:40 AM WAITER/WAITRESS FIRST CLASS 7 mL documented in this encounter Active and Recently Administered Medications Times are shown in WAITER/WAITRESS FIRST CLASS. Scheduled Medication Order 09/16/2018 09/17/2018 09/18/2018 Iopamidol (ISOVUE-M 300) 61 % injection 15 mL (COMPLETED) 15 mL, IntraTHEcal, INTRA-PROCEDURE ONCE, 1 dose, Starting on Fri09/18/18 at 1108, Until Fri09/18/18 at 1040, Routine 1040 (Contrast Given - Provider: Shannan Oneal, RT - Comment: [id number] FERNANDA) No Frequency Medication Order 09/16/2018 09/17/2018 09/18/2018 LIDOCAINE 10 MG/ML (1 %) INJECTION SOLUTION (CABINET OVERRIDE) (COMPLETED) 1 dose, Starting on Fri09/18/18 at 1001, Until Fri09/18/18 at 1040DEMETRIA EBMEA1: cabinet override 1015 (Due)1040 (Give n - Provider: Shannan Oneal, RT - Comment: DR HUMPHREY MYELOGRAM) documented in this encounter Care Teams Rouge Mixer Relationship Specialty Start Date End Date Clayton Sandoval MD [address] [place] [address] PCP - General Internal Medicine 04/22/18 documented as of this encounter
--- OUTSIDE RECORDS SUMMARY | 2024-07-11 22:58 | XMS_ITS | Encounter Summary ---
Author Organization [facility] Address [address] [place] [address] Phone Care Team Providers Care Electric Screw Driver Operator Name Role Phone Lalito [place] Primary Care Provider [phone] Reason for Referral * Imaging (Routine) - Closed Specialty Diagnoses / Procedures Referred By Contac t Referred To Contact Diagnoses Hypertension Type 2 diabetes mellitus with diabetic nephropathy (HCC) Secondary hyperparathyroidism of renal origin (HCC) Hypertensive chronic kidney disease, unspecified, with chronic kidney disease stage I through stage IV, or unspecified Type 2 diabetes mellitus with diabetic chronic kidney disease (HCC) Stage 3b chronic kidney disease (HCC) Procedures Renal Ultrasound - Complete Osmin Paige MD [address] [address] [address] [place] [address] Phone: tel: fax: Referral ID Status Reason Start Date Expiration Date Visits Re quested Visits Authorized [id number] Closed 06/04/2021 12/01/2021 1 1 CAL TECHNOLOGIST GENERALIST Reason for Visit * Reason Comments CKD New Patient Encounter Details Date Type Department Care Team (Latest Contact Info) Description 06/04/2021 12:00 PM MEDICAL TECHNOLOGIST GENERALIST Office Visit [facility] [address] [address] [place] [address] Osmin Paige MD [address] [facility] [address] [place] [address] Stage 3b chronic kidney disease (HCC) (Primary Dx); Hypertension; Type 2 diabetes mellitus with diabetic nephropathy (HCC); Secondary hyperparathyroidism of renal origin (HCC); Hypertensive chronic kidney disease, unspecified, with chronic [...] Comments Blood Pressure 102/53 06/04/2021 12:13 PM MEDICAL TECHNOLOGIST GENERALIST Pulse 88 06/04/2021 12:13 PM MEDICAL TECHNOLOGIST GENERALIST Temperature 36.4 ??C (97.6 ??F) 06/04/2021 12:[address] Respiratory Rate - - Oxygen Saturation 92% 06/04/2021 12:13 PM MEDICAL TECHNOLOGIST GENERALIST Inhaled Oxygen Concentration - - Weight 111 kg (244 lb 8 oz) 06/04/2021 12:13 PM MEDICAL TECHNOLOGIST GENERALIST Height 167.6 cm (5' 6 ) 06/04/2021 12:13 PM MEDICAL TECHNOLOGIST GENERALIST Body Mass Index 39.46 06/04/2021 12:13 PM MEDICAL TECHNOLOGIST GENERALIST documented in this encounter Patient Instructions * Patient Instructions* Osmin Paige MD - 06/04/2021 12:00 PM MEDICAL TECHNOLOGIST GENERALIST No NSAIDS - Do not take non-steroidal [...] in that instance be certain that your motors assembler is contacted so that care can be taken toprotect your kidneys before the test is done. documented in this encounter Progress Notes * Osmin Paige MD - 06/04/2021 12:00 PM CST Images from the original note were not included. Longstanding CKD with progression since 2017. THE FOLLOWING MEDICATION CHANGES SHOULD BE MADE BY PCC WITH HASTE 1)REDUCE THE GABAPENTIN TO MAXIMUM 300MG/DAY 2)D/C METFORMIN 3) D/C FUROSEMIDE. Assessment & Plan 1. Stage 3b chronic kidney disease (HCC) 2. Hypertension 3. Type 2 diabetes mellitus with diabetic nephropathy (HCC) 4. Secondary hyperparathyroidism of renal origin (HCC) 5. Hypertensive chronic kidney disease, unspecified, with chronic kidney disease stage I through stage IV, or unspecified 6. Type 2 diabetes mellitus with diabetic chronic kidney disease (HCC) Orders Placed This Encounter ??? Renal Ultrasound - Complete ??? Hemoglobin A1c ??? Renal function panel ??? CBC and differential ??? Protein / creatinine ratio, urine ??? PTH, intact ??? Urinalysis with microscopic exam OUTSIDE OFFICE ??? Uric acid ??? Iron Panel (Fe, TIBC, TSAT) ??? Liver function panel ??? Creatinine clearance, urine, 24 hour ??? Diet No Added Salt Return in 1 month (on 07/04/2021). History of Present Illness The following portions of the patient's chart were reviewed in this encounter and updated as appropriate: Tobacco Allergies Meds Problems Med Hx Surg Hx Fam Hx Review of Systems ROS Physical Exam BP 102/53 (BP Location: Right forearm) Pulse 88 Temp 97.6 ??F (Temporal) Ht 5' 6 (1.676 m) Wt 244 lb 8 oz (111 kg) SpO2 92% BMI 39.46 kg/m?? Physical Exam Labs Labs Some values may be hidden. Unless noted otherwise, only the newest values recorded on each date aredisplayed. Vitals 09/25/20 06/04/21 Weight 244 lb 8 oz (111 kg) Height 5' 6 (1.676 m) BP 102/53 Pulse 88 Renal Lab Latest Ref Range 09/25/20 06/04/21 Sodium 135 - 145 mEq/L 135 Potassium 3.3 - 4.9 mEq/L 4.5 Chloride 97 - 110 96 (A) Bicarbonate (CO2) 22 - 32 mmol/L 27 BUN 8 - 25 mg/dL 20 Creatinine Serum 0.60 - 1.10 mg/dL 1.60 (A) GFR EST NON 32 Glucose 70 - 199 mg/dL 198 Albumin (Blood) 3.5 - 5.0 g/dL 3.8 Calcium 8.5 - 10.3 mg/dL 9.2 Phosphorus 2.3 - 4.5 mg/dL 2.9 PTH, Intact 15 - 65 pg/mL 79 (A) Vitamin D, 25-OH, Total 30 - 80 ng/mL 35 Some values recorded on this date have been omitted. (A) Abnormal value Anemia Labs Latest Ref Range 09/25/20 06/04/21 WBC 3.8 - 9.9 K/uL 10.8 (A) Hemoglobin 11.9 - 15.5 g/dL 9.3 (A) Hematocrit 35.6 - 45.5 % 31.1 (A) (A) Abnormal value Gen Med Labs Latest Ref Range 09/25/20 06/04/21 Alkaline Phosphatase 40 - 130 U/L 64 Bilirubin 0.1 - 1.2 MG/DL 0.4 AST (SGOT) 10 - 45 U/L 25 ALT (SGPT) 7 - 45 U/L 19 Serology Lab 09/25/20 06/04/21 SABRINA Positive Urine Labs Latest Ref Range 09/25/20 06/04/21 Protein/Creatinine Ratio, Urine 0.0 - 180.0 mg/g creat 260.5 (A) Color, Urine YELLOW YELLOW Clarity, Urine CLEAR CLEAR Nitrite, Urine NEGATIVE NEGATIVE Protein Urine NEGATIVE TRACE Specific [place] Urine 1.010 - 1.025 1.009 pH Urine 5.5 Leukocyte Esterase UA NEGATIVE NEGATIVE Glucose, Urine NEGATIVE 1+ Ketones, Urine NEGATIVE NEGATIVE Urobilinogen, Urine <2.0 <2.0 Bilirubin, Urine NEGATIVE NEGATIVE Blood, Urine NEGATIVE NEGATIVE (A) Abnormal value Drug Levels 09/25/20 06/04/21 No data to display. SHELLIE Meds No data to display. Comments are available for some flowsheets but are not being displayed. Osmin Paige MD documented in this encounter Plan of Treatment Upcoming Encounters Date Type Department Care Team (Late st Contact Info) Description 09/20/2024 4:45 PM CDT Office Visit [facility] [address] [facility] [address] [place] [id number] Osmin Paige MD [address] [facility] [facility] [address] [place] [address] Scheduled Orders Name Type Priority Associated Diagnoses Orde r Schedule Hemoglobin A1c Lab Routine Type 2 diabetes mellitus with diabetic chronic kidney disease (HCC) Expected: 06/04/2021, Expires: 07/04/2022 Renal function panel Lab Routine Stage 3b chronic kidney disease (HCC) Expected: 06/04/2021, Expires: 07/04/2022 CBC and differential Lab Routine Hypertension Type 2 diabetes mellitus with diabetic nephropathy (HCC) Secondary hyperparathyroidism of renal origin (HCC) Hypertensive chronic kidney disease, unspecified, with chronic kidney disease stage I through stage IV, or unspecified Type 2 diabetes mellitus with diabetic chronic kidney disease (HCC) Stage 3b chronic kidney disease (HCC) Expected: 06/04/2021, Expires: 07/04/2022 Protein / creatinine ratio, urine Lab Routine Hypertension Type 2 diabetes mellitus with diabetic nephropathy (HCC) Secondary hyperparathyroidism of renal origin (HCC) Hypertensive chronic kidney disease, unspecified, with chronic kidney disease stage I through stage IV, or unspecified Type 2 diabetes mellitus with diabetic chronic kidney disease (HCC) Stage 3b chronic kidney disease (HCC) Expected: 06/04/2021, Expires: 07/04/2022 PTH, intact Lab Routine Hypertension Type 2 diabetes mellitus with diabetic nephropathy (HCC) Secondary hyperparathyroidism of renal origin (HCC) Hypertensive chronic kidney disease, unspecified, with chronic kidney disease stage I through stage IV, or unspecified Type 2 diabetes mellitus with diabetic chronic kidney disease (HCC) Stage 3b chronic kidney disease (HCC) Expected: 06/04/2021, Expires: 07/04/2022 Urinalysis with microscopic exam OUTSIDE OFFICE Lab Routine Hypertension Type 2 diabetes mellitus with diabetic nephropathy (HCC) Secondary hyperparathyroidism of renal origin (HCC) Hypertensive chronic kidney disease, unspecified, with chronic kidney disease stage I through stage IV, or unspecified Type 2 diabetes mellitus with diabetic chronic kidney disease (HCC) Stage 3b chronic kidney disease (HCC) Expected: 06/04/2021, Expires: 07/04/2022 Uric acid Lab Routine Hypertension Type 2 diabetes mellitus with diabetic nephropathy (HCC) Secondary hyperparathyroidism of renal origin (HCC) Hypertensive chronic kidney disease, unspecified, with chronic kidney disease stage I through stage IV, or unspecified Type 2 diabetes mellitus with diabetic chronic kidney disease (HCC) Stage 3b chronic kidney disease (HCC) Expected: 06/04/2021, Expires: 07/04/2022 Iron Panel (Fe, TIBC, TSAT) Lab Routine Stage 3b chronic kidney disease (HCC) Expected: 06/04/2021, Expires: 07/04/2022 Liver function panel Lab Routine Hypertension Type 2 diabetes mellitus with diabetic nephropathy (HCC) Secondary hyperparathyroidism of renal origin (HCC) Hypertensive chronic kidney disease, unspecified, with chronic kidney disease stage I through stage IV, or unspecified Type 2 diabetes mellitus with diabetic chronic kidney disease (HCC) Stage 3b chronic kidney disease (HCC) Expected: 06/04/2021, Expires: 07/04/2022 Renal Ultrasound - Complete Imaging Routine Hypertension Type 2 diabetes mellitus with diabetic nephropathy (HCC) Secondary hyperparathyroidism of renal origin (HCC) Hypertensive chronic kidney disease, unspecified, with chronic kidney disease stage I through stage IV, or unspecified Type 2 diabetes mellitus with diabetic chronic kidney disease (HCC) Stage 3b chronic kidney disease (HCC) Expected: 06/04/2021, Expires: 06/04/2022 Creatinine clearance, urine, 24 hour Lab Routine Hypertension Type 2 diabetes mellitus with diabetic nephropathy (HCC) Secondary hyperparathyroidism of renal origin (HCC) Hypertensive chronic kidney disease, unspecified, with chronic kidney disease stage I through stage IV, or unspecified Type 2 diabetes mellitus with diabetic chronic kidney disease (HCC) Stage 3b chronic kidney disease (HCC) Expected: 12/02/2021, Expires: 06/04/2022 documented as of this encounter Visit Diagnoses Diagnosis Stage 3b chronic kidney disease (HCC)- Primary Hypertension Type 2 diabetes mellitus with diabetic nephropathy (HCC) Secondary hyperparathyroidism of renal origin (HCC) Secondary hyperparathyroidism of renal origin Hypertensive chronic kidney disease, unspecified, with chronic kidney disease stage I through stage IV, or unspecified Type 2 diabetes mellitus with diabetic chronic kidney disease (HCC) documented in this encounter Care Teams Electric Screw Driver Operator Relationship Specialty Start Date [place] [id number] PCP - General Internal Medicine 06/04/21 documented as of this encounter
--- OUTSIDE RECORDS SUMMARY | 2024-07-11 22:58 | XMS_ITS | Encounter Summary ---
Author Organization [facility] Address [address] [place] [address] Care Team Providers Care Coating And Baking Operator Name Role Phone Clayton Sandoval MD Primary Care Provider [phone] Encounter Details Date Type Department Care Team (Late st Contact Info) Description 05/19/2018 Orders Only [facility] Neurosurgery - [address] [place] [address] Provider, Abstract NO ADDRESS ON [...] Priority Date/Time Associated Diagnosis Comments MRI LUMBAR WO CONTRAST Routine 01/26/2018 documented in this encounter Results * MRI LUMBAR WO CONTRAST (01/26/2018) Anatomical Region Laterality Modality Spine Other Abstract Provider MR ORDERABLES documented in this encounter Visit Diagnoses Not on filedocumented in this encounter Care Teams Coating And Baking Operator Relationship Specialty Start Date End Date Clayton Sandoval MD [facility] [place] [id number] PCP - General Internal Medicine 04/22/18 documented as of this encounter
--- OUTSIDE RECORDS SUMMARY | 2024-07-11 22:58 | XMS_ITS | Encounter Summary ---
Author Organization [facility] Address [address] [place] [address] Care Team Providers Care Nuclear Medicine Technologist Name Role Phone Clayton Sandoval MD Primary Care Provider [phone] Reason for Visit * Reason Comments Back Pain * Eval and Treat (Routine) - Closed Specialty Diagnoses / Procedures Referred By Contac t Referred To Contact Neurosurgery Diagnoses Low back pain LOW BACK PAIN Procedures OFFICE VISIT NEW PATIENT Clayton Sandoval MD [address] [facility] [place] [address] Srinath Tovar MD [address] [place] [address] Referral ID Status Reason Start Date Expiration Date Visits Re quested Visits Authorized [id number] Closed 04/24/2018 2019 12 12 Encounter Details Date Type Department Care Team (Latest Contact Info) Description 05/18/2018 3:00 PM TROLLEY CAR OPERATOR Office Visit [facility] Neurosurgery - [address] [facility] [address] [facility] [address] [place] [address] Srinath Tovar MD [address] [facility] [address] [place] [address] DDD (degenerative disc disease), lumbar (Primary Dx) Social History Tobacco Use Types [...] - - Weight 111.6 kg (246 lb) 05/18/2018 1:29 PM TROLLEY CAR OPERATOR Height 168.9 cm (5' 6.5 ) 05/18/2018 1:29 PM TROLLEY CAR OPERATOR Body Mass Index 39.11 05/18/2018 1:29 PM TROLLEY CAR OPERATOR documented in this encounter Progress Notes * Srinath Tovar MD - 05/18/2018 3:26 PM CST Neurosurgery New Patient Consult Criss Ly 68 y.o. female 1950 [id number] Referred by: Clayton Sandoval MD Chief Complaint Patient presents with ??? Back Pain HPI: This is a 68 y.o. female who presents with pain in her lower back. This has been present for approximately 3 years ago. It did seem to follow a hip fracture and subsequent surgical repair. Thereis no radicular component to this pain. It is located in the mid to lower lumbar region bilaterally. The pain is constant and present all the time. Pain is worse when she stands and starts walking. The pain is better when she sits or lies. Patient has had injections and other passive measures without lasting improvement. Past Medical History: Diagnosis Date ??? Diabetes mellitus ??? HTN (hypertension) ??? Hyperlipidemia Past Surgical History: Procedure Laterality Date ??? HX BREAST REDUCTION ??? HX HIP REPLACEMENT ??? HX KNEE REPLACEMENT ??? HX NECK SURGERY ??? HX SPINAL SURGERY Current Outpatient Prescriptions: ??? fluticasone (FLONASE) 50 mcg/spray Hector, Suspension, inhale 2 spray by Intranasal route [...] 40 mg., Disp: , Rfl: ??? Insulin [place], Disposable, 31 gauge x 3/16 Needle, 1 [...] Tablet, Take by mouth., Disp: , Rfl: ??? albuterol HFA 90 mcg inhaler, Take 2 Puffs by inhalation., Disp: , Rfl: ??? qdslmev-gmcwegcvcmaof-robqykjm (EXCEDRIN EXTRA STRENGTH) 250-250-65 mg Tablet, Take 1 Tablet bymouth., Disp: , Rfl: No Known Allergies Social History Substance Use Topics ??? Smoking status: Never Smoker ??? Smokeless tobacco: Never Used ??? Alcohol use Yes Comment: rarely Family History Problem Relation Age of Onset ??? Diabetes Mother ??? Cancer Father Review of Systems Review of Systems Constitutional: Positive for fatigue. HENT: Negative. Eyes: Negative. Respiratory: Positive for shortness of breath. Cardiovascular: Negative. Gastrointestinal: Negative. Genitourinary: Negative. Musculoskeletal: Positive for back pain. Neurological: Negative. Psychiatric/Behavioral: Negative. Objective: Ht 5' 6.5 (1.689 m) Wt 111.6 kg (246 lb) BMI 39.11 kg/m?? Physical Examination: General: Const: Well developed, obese, appears stated age, and in no acute distress. Psych: The patient is awake, alert, and oriented x 3. Appropriate mood and affect. Eyes: Normal conjunctiva. Skin: Warm, dry, and well perfused. Neck: Supple. Trachea at midline. Lungs: Normal respiratory effort. Breathing is regular and non-labored Heart: Regular rhythm. No audible murmurs. Musculoskeletal: Upper Ext: Normal ROM for age Lower Ext: Patient does have mechanical issues with alignment and range of motion in her hips and knees bilaterally. Neck: FROM for age, without pain Back: FROM for age, without pain. Alignment: Patient carries herself in a very forward alignment to her neck shoulders, and a flat back. Neurological: Awake, alert and oriented x 3. [...] [facility] Imaging/Tests Review I reviewed in detail a recent MRI. The patient does have significant degenerative disc changes throughout the mid lumbar spine. There is some degree of spinal canal and foraminal narrowing with no significant cauda equina or nerve root compression. Assessment: ICD-10-CM ICD-9-CM 1. DDD (degenerative disc disease), lumbar M51.36 722.52 I told the patient I thought her pain was largely mechanical in origin. Since she has no leg pain Jerry not believe nerve root compression is part of this. I believe her weight and lack of core strength are contributing to her significant issues, in combination with her hip and knee issues. I believe a conservative treatment program stressing improvement in core strength and weight loss is paramount to her improving. We did talk about a number of other issues regarding types of treatment including those by pain management and surgery. If the patient does not improve with an aquatic therapy program, then further evaluation including a lumbar myelo CT is in order. Plan: Patient will undergo a month of aquatic physical and exercise therapy. Preventative Medicine: She is not a tobacco user. Abnormal high BMI: Patient counseled on lifestyle modifications including weight loss and daily exercise. Referral to primary care provider for follow-up on BMI. (Normal BMI range: 18 & older: > or = 18.5 and < 25) Education was provided using [employer]. Patient and family understand diagnosis, proposed treatment, and instructions clearly. LEY CAR OPERATOR documented in this encounter Miscellaneous Notes * Patient Instructions - Yola Tovar - 05/19/2018 1:43 PM CST Images from the original note were not included. [employer] A Healthy Lifestyle: Care Instructions Your Care Instructions A healthy lifestyle can help you feel good, stay at a healthy weight, and have plenty of energy forboth work and play. A healthy lifestyle is something you can share with your whole family. A healthy lifestyle also can lower your risk for serious health problems, such as high blood pressure, heart disease, and diabetes. You can follow a few steps listed below to improve your health and the health of your family. Follow-up care is a winter part of your treatment and safety. Be sure to make and go to all appointments, and call your doctor if you are having problems. It's also a good idea to know your test resultsand keep a list of the medicines you take. How can you care for yourself at home? ?? Do not eat too much sugar, fat, or fast foods. You can still have dessert and treats now and then. The goal is moderation. ?? Start small to improve your eating habits. Pay attention to portion sizes, drink less juice and soda pop, and eat more fruits and vegetables. ?? Eat a healthy amount of food. A 3-ounce serving of meat, for example, is about the size of a deck of cards. Fill the rest of your plate with vegetables and whole grains. ?? Limit the amount of soda and sports drinks you have every day. Drink more water when you are thirsty. ?? Eat at least 5 servings of fruits and vegetables every day. It may seem like a lot, but it is not hard to reach this goal. A serving or helping is 1 piece of fruit, 1 cup of vegetables, or 2 cups of leafy, raw vegetables. Have an apple or some carrot sticks as an afternoon snack instead of a candy bar. Try to have fruits and/or vegetables at every meal. ?? Make exercise part of your daily routine. You may want to start with simple activities, such as walking, bicycling, or slow swimming. Try to be active 30 to 60 minutes every day. You do not need to do all 30 to 60 minutes all at once. For example, you can exercise 3 times a day for 10 or 20 minutes. Moderate exercise is safe for most people, but it is always a good idea to talk to your doctor before starting an exercise program. ?? Keep moving. Mow the lawn, work in the garden, or clean your house. Take the stairs instead of the elevator at work. ?? If you smoke, quit. People who smoke have an increased risk for heart attack, stroke, cancer, and other lung illnesses. Quitting is hard, but there are ways to boost your chance of quitting tobacco for good. ?? Use nicotine gum, patches, or lozenges. ?? Ask your doctor about stop-smoking programs and medicines. ?? Keep trying. In addition to reducing your risk of diseases in the future, you will notice some benefits soon after you stop using tobacco. If you have shortness of breath or asthma symptoms, they will likely get better within a few weeks after you quit. ?? Limit how much alcohol you drink. Moderate amounts of alcohol (up to 2 drinks a day for men, 1 drink a day for women) are okay. But drinking too much can lead to liver problems, high blood pressure, and other health problems. Family health If you have a family, there are many things you can do together to improve your health. ?? Eat meals together as a family as often as possible. ?? Eat healthy foods. This includes fruits, vegetables, lean meats and dairy, and whole grains. ?? Include your family in your fitness plan. Most people think of activities such as jogging or tennis as the way to fitness, but there are many ways you and your family can be more active. Anything that makes you breathe hard and gets your heart pumping is exercise. Here are some tips: ?? Walk to do errands or to take your child to school or the bus. ?? Go for a family bike ride after dinner instead of watching TV. Where can you learn more? Go to https://www.[employer]net/patientEd Enter U807 in the search box to learn more about A Healthy Lifestyle: Care Instructions. Current as of: June 19, 2017 Content Version: 11.8 ?? [id number] [employer]. Care instructions adapted under license by your healthcare professional. If you have questions about a medical condition or this instruction, always ask your healthcare professional. These instructions may not represent the values of this healthcare organization. [employer] disclaims any warranty or liability for your use of this information. LEY CAR OPERATOR documented in this encounter Plan of Treatment Not on file documented as of this encounter Visit Diagnoses Diagnosis DDD (degenerative disc disease), lumbar- Primary Degeneration of lumbar or lumbosacral intervertebral disc documented in this encounter Care Teams Nuclear Medicine Technologist Relationship Specialty Start Date End Date Clayton Sandoval MD [address] [facility] [facility] [place] [address] PCP - General Internal Medicine 04/22/18 documented as of this encounter
--- OUTSIDE RECORDS SUMMARY | 2024-07-11 22:58 | XMS_ITS | Encounter Summary ---
Author Organization [facility] Address [address] [place] [address] Care Team Providers Care Yarn Examiner Name Role Phone Clayton Sandoval MD Primary Care Provider [phone] Encounter Details Date Type Department Care Team (Late st Contact Info) Description 09/15/2018 Abstract [facility] Neurosurgery - [address] [facility] [address] [place] [address] Provider, Abstract NO ADDRESS ON [...] on filedocumented in this encounter Care Teams Yarn Examiner Relationship Specialty Start Date End Date Clayton Sandoval MD [facility] [facility] [place] [id number] PCP - General Internal Medicine 04/22/18 documented as of this encounter
--- OUTSIDE RECORDS SUMMARY | 2024-07-11 22:58 | XMS_ITS | Encounter Summary ---
Author Organization [facility] Address [address] [place] [address] Phone Care Team Providers Care Rough And Trueing Machine Operator Name Role Phone Lalito England Primary Care Provider [phone] Encounter Details Date Type Department Care Team (Late st Contact Info) Description 10/09/2021 11:45 AM CDT Office Visit [facility] [address] [facility] [address] [place] [address] Osmin Paige MD [address] [facility] [address] [place] [address] Stage 3b chronic kidney disease (HCC) (Primary Dx); Hypertension; Type 2 diabetes mellitus with diabetic nephropathy (HCC); Chronic systolic congestive heart failure (HCC); Anemia in chronic kidney disease; Hypertensive chronic kidney disease, unspecified, with chronic [...] on file documented as of this encounter Patient Instructions * Patient Instructions* Osmin Paige MD - 10/09/2021 11:45 AM CDT No NSAIDS - Do not take non-steroidal [...] in that instance be certain that your chaperon is contacted so that care can be taken toprotect your kidneys before the test is done. documented in this encounter Progress Notes * Osmin Paige MD - 10/09/2021 11:45 AM CDT CKD3B: she's experienced progression which has not reversed. Will follow. Assessment & Plan 1. Stage 3b chronic kidney disease (HCC) 2. Hypertension 3. Type 2 diabetes mellitus with diabetic nephropathy (HCC) 4. Chronic systolic congestive heart failure (HCC) 5. Anemia in chronic kidney disease 6. Hypertensive chronic kidney disease, unspecified, with chronic kidney disease stage I through stage IV, or unspecified 7. Type 2 diabetes mellitus with diabetic chronic kidney disease (HCC) Orders Placed This Encounter ??? CBC and Differential ??? Renal function panel ??? Iron Panel (Fe, TIBC, TSAT) ??? Ferritin ??? Diet No Added Salt Return in 3 months (on 01/09/2022). History of Present Illness The following portions [...] values recorded on each date aredisplayed. Vitals 06/04/21 06/20/21 09/28/21 Weight 244 lb 8 oz (111 kg) Height 5' 6 (1.676 m) BP 102/53 Pulse 88 Renal Lab Latest Ref Range 06/04/21 06/20/21 09/28/21 Sodium 135 - 145 mEq/L 137 141 Potassium 3.3 - 4.9 mEq/L 4.2 3.6 Chloride 97 - 110 98 100 Bicarbonate (CO2) 22 - 32 mmol/L 25 27 BUN 8 - 25 mg/dL 36 (A) 57 (A) Creatinine Serum 0.60 - 1.10 mg/dL 2.19 (A) 2.14 (A) GFR EST NON 24 Glucose 70 - 199 mg/dL 90 65 (A) Hemoglobin A1C 4.0 - 5.6 11.0 (A) 8.6 (A) Albumin (Blood) 3.5 - 5.0 g/dL 3.8 3.9 Calcium 8.5 - 10.3 mg/dL 9.8 9.3 Phosphorus 2.3 - 4.5 mg/dL 4.0 PTH, Intact 15 - 65 pg/mL 81 (A) 103 (A) (A) Abnormal value Anemia Labs Latest Ref Range 06/04/21 06/20/21 09/28/21 WBC 3.8 - 9.9 K/uL 10.4 (A) 14.9 (A) Hemoglobin 11.9 - 15.5 g/dL 9.8 (A) 11.7 (A) Hematocrit 35.6 - 45.5 % 31.7 (A) 37.9 Platelets 150 - 400 267 282 Iron Saturation (TSat) 20 - 50 13 (A) Ferritin 15 - 150 14 (A) (A) Abnormal value Gen Med Labs Latest Ref Range 06/04/21 06/20/21 09/28/21 Alkaline Phosphatase 40 - 130 U/L 101 Bilirubin 0.1 - 1.2 MG/DL 0.5 AST (SGOT) 10 - 45 U/L 21 ALT (SGPT) 7 - 45 U/L 17 Serology Lab 06/04/21 06/20/21 09/28/21 No data to display. Urine Labs Latest Ref Range 06/04/21 06/20/21 09/28/21 Protein/Creatinine Ratio, Urine 0.0 - 180 113.6 Color, Urine Yellow Straw Clarity, Urine Clear Clear Nitrite, Urine Negative Negative Protein Urine Negative Negative Specific [place] Urine 1.003 - 1.030 1.007 pH Urine 5 Leukocyte Esterase UA Negative Negative Glucose, Urine Negative 1+ Ketones, Urine Negative Negative Urobilinogen, Urine <2.0 <2.0 Bilirubin, Urine Negative Negative Blood, Urine Negative Negative Drug Levels 06/04/21 06/20/21 09/28/21 No data to display. SHELLIE Meds No data to display. Comments are available for some flowsheets but are not being displayed. Osmin Paige MD documented in this encounter Plan of Treatment Upcoming Encounters Date Type Department Care Team (Late st Contact Info) Description 09/20/2024 4:45 PM CDT Office Visit [facility] [address] [facility] [address] [place] [address] Osmin Paige MD [address] [facility] [address] [place] [address] Scheduled Orders Name Type Priority Associated Diagnoses Orde r Schedule Renal function panel Lab Routine Stage 3b chronic kidney disease (HCC) Type 2 diabetes mellitus with diabetic chronic kidney disease (HCC) Expected: 01/09/2022, Expires: 11/09/2022 Iron Panel (Fe, TIBC, TSAT) Lab Routine Stage 3b chronic kidney disease (HCC) Expected: 01/09/2022, Expires: 11/09/2022 Ferritin Lab Routine Stage 3b chronic kidney disease (HCC) Expected: 01/09/2022, Expires: 11/09/2022 documented as of this encounter Procedures Procedure Name Priority Date/Time Associated Diagnosis Comments CBC AND DIFFERENTIAL Routine 05/19/2023 Hypertension Type 2 diabetes mellitus with diabetic nephropathy (HCC) Chronic systolic congestive heart failure (HCC) Anemia in chronic kidney disease Hypertensive chronic kidney disease, unspecified, with chronic kidney disease stage I through stage IV, or unspecified Type 2 diabetes mellitus with diabetic chronic kidney disease (HCC) Stage 3b chronic kidney disease (HCC) documented in this encounter Results * (ABNORMAL) CBC and Differential (05/19/2023) WBC 10.4(A) 3.8 - 9.9 K/uL PRINT/EXTERNA L (NON-INTERFAC ED LABS) Red Blood Cell Count 3.86(A) 3.90 - 5.20 PRINT/EXTERNA L (NON-INTERFAC ED LABS) Hemoglobin 10.0(A) 11.9 - 15.5 g/dL PRINT/EXTERNA L (NON-INTERFAC ED LABS) Hematocrit 32.5(A) 35.6 - 45.5 % PRINT/EXTERNA L (NON-INTERFAC ED LABS) MCV 84.2 81.3 - 96.4 PRINT/EXTERNA L (NON-INTERFAC ED LABS) MCH 25.9(A) 27.1 - 33.3 PRINT/EXTERNA L (NON-INTERFAC ED LABS) MCHC 30.8(A) 32.3 - 35.7 PRINT/EXTERNA L (NON-INTERFAC ED LABS) Platelet Count 243 150 - 400 PRINT /EXTERNA L (NON-INTERFAC ED LABS) MPV 10.0 9.1 - 12.3 PRINT/EXT ANISHA L (NON-INTERFAC ED LABS) Absolute Neutrophils 7.6(A) 1.7 - 6.5 PRINT/EXTERNA L (NON-INTERFAC ED LABS) Absolute Lymphocytes 1.5 0.8 - 3.3 PRINT/EXTERNA L (NON-INTERFAC ED LABS) Absolute Monocytes 1.0(A) 0.2 - 0.8 PRINT/EXTERNA L (NON-INTERFAC ED LABS) Absolute Eosinophils 0.2 0.0 - 0.5 PRINT/EXTERNA L (NON-INTERFAC ED LABS) Absolute Basophils 0.1 0.0 - 0.1 PRINT/EXTERNA L (NON-INTERFAC ED LABS) Neutrophils 72.8 K/uL PRINT/EX TERNA L (NON-INTERFAC ED LABS) Lymphocytes 14.8 PRINT/EX TERNA L (NON-INTERFAC ED LABS) Monocytes 9.3 PRINT/EXTE RNA L (NON-INTERFAC ED LABS) Eosinophils 2.0 PRINT/EX TERNA L (NON-INTERFAC ED LABS) Basophils 0.7 PRINT/EXTE RNA L (NON-INTERFAC ED LABS) Blood (Blood, Venous) 05/19/2023 us Osmin Paige MD LAB BLOOD ORDERABLES Final Res ult PRINT/EXTERNAL (NON-INTERFACED LABS) documented in this encounter Visit Diagnoses Diagnosis Stage 3b chronic kidney disease (HCC)- Primary Hypertension Type 2 diabetes mellitus with diabetic nephropathy (HCC) Chronic systolic congestive heart failure (HCC) Anemia in chronic kidney disease Hypertensive chronic kidney disease, unspecified, with chronic kidney disease stage I through stage IV, or unspecified Type 2 diabetes mellitus with diabetic chronic kidney disease (HCC) documented in this encounter Care Teams Rough And Trueing Machine Operator Relationship Specialty Start Date End Date Lalito England [address] [place] [address] PCP - General Internal Medicine 06/04/21 documented as of this encounter
--- OUTSIDE RECORDS SUMMARY | 2024-07-11 22:58 | XMS_ITS | Encounter Summary ---
Author Organization [facility] Address [address] [place] [address] Care Team Providers Care Resident Services Coordinator Name Role Phone Clayton Sandoval MD Primary Care Provider [phone] Reason for Referral * CT Scan (Routine) - Closed Specialty Diagnoses / Procedures Referred By Contac t Referred To Contact Radiology Diagnoses Degeneration of lumbar intervertebral disc Procedures CT LUMBAR SPINE W CONTRAST Srinath Tovar MD [address] [facility] [address] [place] [address] [facility] Interventional Radiology [address] [place] [address] Referral ID Status Reason Start Date Expiration Date Visits Requested Visits Authorized [id number] Closed [facility] INTERVENTIONAL 09/14/2018 10/15/2019 1 1 ED OATS MILL OPERATOR * Radiology Services (Routine) - Closed Specialty Diagnoses / Procedures Referred By Contac t Referred To Contact Radiology Diagnoses Degeneration of lumbar intervertebral disc Procedures XR MYELOGRAM LUMBAR WA MYELOGRAPHY VIA LUMBAR INJECT RS&I LUMBOSACRAL CHG FLUOROSCOPY UP TO 1 HOUR PHYSICIAN/QHP TIME Srinath Tovar MD [address] [facility] [address] [place] [address] [facility] Interventional Radiology [address] [place] [address] Referral ID Status Reason Start Date Expiration Date Visits Requested Visits Authorized [id number] Closed [facility] INTERVENTIONAL 09/14/2018 10/15/2019 1 1 ED OATS MILL OPERATOR Reason for Visit * Reason Onset Date Comments update 09/14/2018 Encounter Details Date Type Department Care Team (Late st Contact Info) Description 09/14/2018 Telephone [facility] Neurosurgery - [address] [place] [address] [place] [address] Srinath Tovar MD [address] [place] [address] update Social History Tobacco Use Types Packs/Day Years [...] encounter Miscellaneous Notes * Telephone Encounter - Hortencia Hightower - 09/14/2018 4:45 PM CST This pt called in to schedule her CT/Myelo. She has finished the therapy with no relief. I faxed the order to [facility] to arrange. ED OATS MILL OPERATOR documented in this encounter Plan of Treatment Not on file documented as of this encounter Results * CT LUMBAR SPINE W CONTRAST (09/18/2018 11:33 AM ROLLED OATS MILL OPERATOR) Anatomical Region Laterality Modality Spine Computed Tomogra phy 09/18/2018 11:3 4 AM ROLLED OATS MILL OPERATOR Impressions 09/18/2018 4:52 PM ROLLED OATS MILL OPERATOR IMPRESSION: ?? 1. Multilevel degenerative lumbar spondylosis [...] bilateral neural foraminal narrowing. DICTATION LOCATION: Location 7 - [facility] Narrative 09/18/2018 4:52 PM ROLLED OATS MILL OPERATOR CT POST MYELOGRAM LUMBAR SPINE CT MULTIPLANAR [...] bilateral neural foraminal narrowing. DICTATION LOCATION: Location [address] [place] [address] ORDERABLES * XR MYELOGRAM LUMBAR (09/18/2018 11:08 AM ROLLED OATS MILL OPERATOR) Anatomical Region Laterality Modality Spine Computed Radiogr aphy 09/18/2018 11:2 2 AM ROLLED OATS MILL OPERATOR Impressions 09/18/2018 4:52 PM ROLLED OATS MILL OPERATOR IMPRESSION: ?? 1. L4-5 grade 1 anterior spondylolisthesis and multilevel degenerative lumbar spondylosis. 2. L2-3 disc bulge with moderate spinal canal stenosis. 3. L3-4, L4-5 and L5-S1 disc bulging with mild spinal canal stenosis. DICTATION LOCATION: Location [address] [place] [address] 09/18/2018 4:52 PM ROLLED OATS MILL OPERATOR LUMBAR MYELOGRAM FLUOROSCOPIC LUMBAR PUNCTURE FOR MYELOGRAPHY [...] with mild spinal canal stenosis. DICTATION LOCATION: [address] Srinath Tovar MD DIAGNOSTIC IMAGING O RDERABLES documented in this encounter Visit Diagnoses Diagnosis Degeneration of lumbar intervertebral disc- Primary Degeneration of lumbar or lumbosacral intervertebral disc Degeneration of lumbar intervertebral disc Degeneration of lumbar or lumbosacral intervertebral disc documented in this encounter Care Teams Resident Services Coordinator Relationship Specialty Start Date End Date Clayton Sandoval MD [address] [place] [address] PCP - General Internal Medicine 04/22/18 documented as of this encounter
--- OUTSIDE RECORDS SUMMARY | 2024-07-11 22:58 | XMS_ITS | Encounter Summary ---
Author Organization [facility] Address [address] [place] [address] Care Team Providers Care Hazardous Materials Driver Name Role Phone Clayton Sandoval MD Primary Care Provider [phone] Encounter Details Date Type Department Care Team (Late st Contact Info) Description 06/09/2018 Abstract [facility] Neurosurgery - [address] [facility] [address] [place] [address] Provider, Abstract NO ADDRESS ON [...] on filedocumented in this encounter Care Teams Hazardous Materials Driver Relationship Specialty Start Date End Date Clayton Sandoval MD [facility] [facility] [place] [id number] PCP - General Internal Medicine 04/22/18 documented as of this encounter
--- OUTSIDE RECORDS SUMMARY | 2024-07-11 22:58 | XMS_ITS | Encounter Summary ---
Author Organization [facility] Address [address] [place] [address] Phone Care Team Providers Care Converting Supervisor Name Role Phone Lalito England Primary Care Provider [phone] Encounter Details Date Type Department Care Team (Late st Contact Info) Description 07/03/2021 Documentation Only [facility] [address] [facility] [address] [address] [place] [address] Radha Do MA [address] [facility] [address] [place] [address] Social History Tobacco Use Types [...] Description 09/20/2024 4:45 PM CDT Office Visit [facility] [address] [facility] [address] [address] [place] [address] Osmin Paige MD [address] [facility] [address] [place] [address] documented as of this encounter Procedures Procedure Name Priority Date/Time Associated Diagnosis Comments PROTEIN CREATININE RATIO, RANDOM (UR) Routine 06/20/2021 IRON PANEL (FE, TIBC, TSAT) Routine 06/20/2021 CREATININE CLEARANCE, URINE, 24 HOUR Routine 06/20/2021 URINALYSIS WITH MICROSCOPIC Routine 06/20/2021 CBC AND DIFFERENTIAL Routine 06/20/2021 PTH, INTACT Routine 06/20/2021 HEMOGLOBIN A1C Routine 06/20/2021 COMPREHENSIVE METABOLIC PANEL Routine 06/20/2021 documented in this encounter Results * (ABNORMAL) Creatinine clearance, urine, 24 hour (06/20/2021) Pathologist [facility] Urine Volume 24 Hr 1,375 Creatinine in 24 hour Urine 1.1 0.6 - 1.5 Creatinine Clearance 34.00(A) 60.00 - 130.00 mL/min Urine (Urine, Clean Catch) 06/20/2021 Result [facility] Provider MD LAB URINE ORDERABLES Jessica l Result * (ABNORMAL) PTH, Intact (06/20/2021) Pathologist [facility] Parathyroid Hormone, Intact 81(A) 15 - 65 pg/mL Comment:79 on 09/25/20 Blood (Blood, Venous) 06/20/2021 Historical Provider LAB BLOOD ORDERABLES Jessica l Result * (ABNORMAL) Iron Panel (Fe, TIBC, TSAT) (06/20/2021) Pathologist [facility] Iron, Total 50 35 - 145 Iron Binding Capacity 383 250 - 400 % Iron Saturation 13(A) 20 - 50 Blood (Blood, Venous) 06/20/2021 [facility] Provider MD LAB BLOOD ORDERABLES Jessica l Result * (ABNORMAL) CBC and Differential (06/20/2021) [facility] WBC 10.4(A) 3.8 - 9.9 K/uL Red Blood Cell Count 3.71(A) 3.90 - 5.20 Hemoglobin 9.8(A) 11.9 - 15.5 g/dL Hematocrit 31.7(A) 35.6 - 45.5 % MCV 85.4 81.3 - 96.4 MCH 26.4(A) 27.1 - 33.3 MCHC 30.9(A) 32.3 - 35.7 RDW 47.4 35.7 - 48.1 Platelet Count 267 150 - 400 MPV 10.3 9.1 - 12.3 Absolute Neutrophils 7.7(A) 1.7 - 6.5 Absolute Lymphocytes 1.6 0.8 - 3.3 Absolute Monocytes 0.7 0.2 - 0.8 Absolute Eosinophils 0.3 0.0 - 0.5 Absolute Basophils 0.1 0.0 - 0.1 Neutrophils 74.3 K/uL Lymphocytes 15.1 Monocytes 7.1 Eosinophils 2.4 Basophils 0.8 Blood (Blood, Venous) 06/20/2021 Result [facility] MD LAB BLOOD ORDERABLES Jessica l Result * (ABNORMAL) Hemoglobin A1c (06/20/2021) [facility] Hemoglobin A1C 11.0(A) 4.0 - 5.6 Comment:7.6 on 07/10/20 Blood (Blood, Venous) 06/20/2021 Result [facility] MD LAB BLOOD ORDERABLES Jessica l Result * Urinalysis with microscopic (06/20/2021) [facility] Color, Urine Straw Yellow Clarity, Urine Clear Clear Urine Specific [place] 1.007 1.003 - 1.030 pH Urine 5 Leukocyte Esterase UA Negative Negative Nitrite, Urine Negative Negative Protein, Urine Negative Negative Glucose, Urine 1+ Negative Ketones, Urine Negative Negative Urobilinogen, Urine <2.0 <2.0 Bilirubin, Urine Negative Negative Blood, Urine Negative Negative Urine (Urine, Clean Catch) 06/20/2021 Result [facility] Provider [place] LAB URINE ORDERABLES Jessica l Result * Protein Creatinine Ratio, Random (UR) (06/20/2021) Protein Urine Random 5 Creatinine Urine, Random 44 Protein/Creatini ne Ratio, Urine 113.6 0.0 - 180 Comment:260.5 on 09/25/20 Urine 06/20/2021 Result [facility] Provider MD LAB URINE ORDERABLES Jessica l Result * (ABNORMAL) Comprehensive Metabolic Panel (06/20/2021) Glucose 90 70 - 199 mg/dL BUN 36(A) 8 - 25 mg/dL Creatinine 2.19(A) 0.60 - 1.10 mg/dL Comment:Cr+ was 1.60 on 09/25; 1.79 on 07/10/20 Sodium 137 135 - 145 mEq/L Potassium 4.2 3.3 - 4.9 mEq/L Chloride 98 97 - 110 Carbon Dioxide 25 22 - 32 mmol/L Calcium 9.8 8.5 - 10.3 mg/dL Albumin (Blood) 3.8 3.5 - 5.0 g/dL AST (SGOT) 21 10 - 45 U/L ALT (SGPT) 17 7 - 45 U/L Alkaline Phosphatase 101 40 - 130 U/L Total Bilirubin 0.5 0.1 - 1.2 MG/DL Total Protein, Serum 7.7 6.5 - 8.5 Anion Gap 14 2 - 15 Blood (Blood, Venous) 06/20/2021 Result [facility] Provider [place] LAB BLOOD ORDERABLES Jessica l Result documented in this encounter Visit Diagnoses Not on filedocumented in this encounter Care Teams Converting Supervisor Relationship Specialty Start Date [place] [address] PCP - General Internal Medicine 06/04/21 documented as of this encounter
== END 2024-07-04 16:38 | disposition home or self-care (01) ==
PROVIDERS: Emergency Provider Nurse Practitioner Family; PCP Family Medicine
DX: J40 Bronchitis, not specified as acute or chronic (principal); Z79.01 Long term (current) use of anticoagulants
CPT/HCPCS: 71046; 99213; G0463